=== PATIENT | female | born 1940 | race Caucasian/White ===

== ENCOUNTER → 2017-03-10 09:58 | Outpatient (CLI) | payer MEDICARE, OTHER, SELFPAY ==
--- NOTE | 2017-03-10 10:05 | ECHOCS_ITS ---
Reason For Study: Cardiomyopathy Procedure This was a 2D Doppler, Color Flow transthoracic echocardiogram. Exam performed in department. Left Ventricle Normal LV size. Mild concentric left ventricular hypertrophy. Moderately severe global left ventricular systolic dysfunction. The estimated ejection fraction is 35 %. There is moderate to severe global hypokinesis of the left ventricle. Right Ventricle Normal RV size. Normal systolic function. Atria The left atrium is mildly enlarged. Normal right atrium. Bubble contrast study negative for right to left interatrial shunt. Mitral Valve There is mild to moderate mitral annular calcification. Mild (1+) eccentric mitral valve insufficiency. Tricuspid Valve Normal tricuspid valve. Mild (1+) tricuspid valve insufficiency. Aortic Valve Trisinus/trileaflet aortic valve. Pulmonic Valve The pulmonic valve is not well visualized. Great Vessels Normal aortic root. The pulmonary artery is normal size. Normal inferior vena cava. Pericardium/Pleural No pericardial effusion. Medication 22 gauge I.V. with prn adaptor inserted into right arm. Diluted definity 2ml given slow IV push to enhance endocardial definition. MMode/2D Measurements & Calculations LVIDd: 4.6 cm IVSd: 1.2 cm Ao root diam: 3.3 cm LVIDs: 4.0 cm LVPWd: 1.5 cm LA dimension: 4.1 cm RVDd: 3.6 cm FS: 13.7 % LAV(MOD-bp): 84.4 ml LAV(MOD-bp) Indexed: 43.6 ml/m2 LA A4 area: 23.5 cm2 RA A4 area: 16.2 cm2 LAV(MOD-sp2): 89.6 ml LAV(MOD-sp4): 74.9 ml Time Measurements MV dec time: 0.25 sec Doppler Measurements & Calculations MV E max [place]: 68.5 cm/sec Lat Peak E' [place]: 9.0 cm/sec Med Peak E' [place]: 3.6 cm/sec MV A max [place]: 98.1 cm/sec E/E' lat: 7.6 E/E' med: 18.9 MV E/A: 0.70 MV V2 max: 122.1 cm/sec MV P1/2t max [place]: 81.6 cm/sec Ao V2 max: 120.4 cm/sec MV max P.0 mmHg MV P1/2t: 105.7 msec Ao max P.8 mmHg MV V2 mean: 64.8 cm/sec MV dec slope: 226.2 cm/sec2 Ao V2 mean: 77.5 cm/sec MV mean P.0 mmHg MVA(P1/2t): 2.1 cm2 Ao mean P.8 mmHg MV V2 VTI: 33.1 cm Ao V2 VTI: 22.1 cm LV V1 max: 89.9 cm/sec PA V2 max: 107.2 cm/sec TR max [place]: 282.9 cm/sec LV V1 max P.2 mmHg TR max P.0 mmHg LV V1 mean P.6 mmHg LV V1 mean: 58.8 cm/sec LV V1 VTI: 19.4 cm Interpretation Summary Normal LV size. Mild concentric left ventricular hypertrophy. Moderately severe global left ventricular systolic dysfunction. The estimated ejection fraction is 35 %. There is mild to moderate mitral annular calcification. Mild (1+) eccentric mitral valve insufficiency. Compared to the previous there is mild improvement noted Ordering Physician: Jonel Winchester Referring Physician: Jonel Winchester Performed By: Rolly Valdez RCS
== END ==
PROVIDERS: Family Provider Internal Medicine; PCP Internal Medicine; Visit Provider Internal Medicine Cardiovascular Disease
DX: I43 Cardiomyopathy in diseases classified elsewhere (principal)
CPT/HCPCS: 93306; Q9957; A4216; C8929

== ENCOUNTER 2017-04-19 17:14 | Inpatient (IN) | payer MEDICARE, OTHER, SELFPAY ==
[2017-04-19] VITALS (13 sets, daily range): BP systolic 99–129; BP diastolic 59–76; PULSE 93–140; RESP 14–25; TEMP 36.4–36.8; O2SAT 94–98; BMI 32.4; BMI 32.1
--- NOTE | 2017-04-19 17:28 | RAD_ITS ---
STUDY: X-RAY CHEST REASON FOR EXAM: Female, 76 years old. Tachycardia TECHNIQUE: Frontal view of the chest COMPARISON: X-ray dated 11/11/2016 FINDINGS: The lungs are clear. There are no pleural effusions. There is no pneumothorax. The heart is normal in size. Again noted is tortuosity of the aorta. The visualized osseous structures are within normal limits. The patient is status post sternotomy. RAD/Chest 1 View (Portable) IMPRESSION: No acute thoracic pathology. Electronically Signed: Kwasi Ambriz, at 17:53 EST Tel , Service support ,
--- NOTE | 2017-04-19 17:28 | EKG12_ITS ---
Test Reason : TACHYCARDIA Blood Pressure : / mmHG Vent. Rate : 119 BPM Atrial Rate : 256 BPM P-R Int : 000 ms QRS Dur : 126 ms QT Int : 366 ms P-R-T Axes : 000 -21 137 degrees QTc Int : 514 ms Atrial flutter with variable A-V block with premature ventricular or aberrantly conducted complexes Non-specific intra-ventricular conduction block T wave abnormality, consider lateral ischemia Abnormal ECG Confirmed by STAN ROSAS, EDWIN ([id number]), society editor AMIRA CASTRO ([id number]) on 04/21/2017 3:15:31 PM Referred By: Edwin Winchester Confirmed By:EDWIN WINCHESTER MD
[2017-04-19] MEDS: Aspirin 81 MG TAB.CHEW 324 MG PO (17:44)
[2017-04-19 17:55] LABS: Absolute Lymphocyte Count 3.48 X10^3/ul (0.83-4.51); Absolute Neutrophil Count 5.9 X10^3/uL (2.0-7.7); Basophil# 0.03 X10^3/uL; Basophil% 0.3 % (0-1); Eosinophil# 0.19 X10^3/uL; Eosinophils% 1.8 % (0-5); Hematocrit 38.6 % (37-47); Lymphocyte # 3.48 X10^3/ul (4.0); Lymphocyte % 33.4 % (19-41); Mean Corp Hgb Conc 31.1 g/gl (32-36); Mean Corpuscular Hgb 25.5 pg (27.0-32.0); Mean Corpuscular Volume 82.1 fL (81-99); Mean Platelet Vol. 10.2 fl (6.2-12.0); Monocyte% 7.7 % (0-10); Neutrophil # 5.91 X10^3/uL (2.7-7.7); Neutrophil % 56.6 % (47-70); POSITIVE COUNT NO; POSITIVE DIFFERENTIAL NO; POSITIVE MORPHOLOGY NO; Platelet Count 281 K/mm3 (150-450); RBC Distribution Width CV 14.9 % (11.6-14.6); RBC Distribution Width SD 44.6 fl (35.1-43.9); White Blood Count 10.4 K/mm3 (4.4-11.0)
[2017-04-19 17:57] LABS: Anion Gap 10 (5-15); BUN 29 mg/dL (7-18); Calcium,Total 8.7 mg/dL (8.5-10.1); Chloride 102 mmol/L (98-107); Creatinine, Serum 1.16 mg/dL (0.55-1.02); EST Glomerular Filtration Rate 48 mL/min (>60); Est Glom Filt Rate - Afr Amer 58 mL/min (>60); Estimated Creatinine Clearance 37.13 ml/min; Glucose 173 mg/dL (74-106); Potassium 4.7 mmol/L (3.5-5.1); Sodium Level 137 mmol/L (136-145)
--- NOTE | 2017-04-19 17:59 | ED.DCSUM_ITS ---
- ER Visit Summary Date of Service: 04/19/17 Chief Complaint: Palpitations History of Present Illness: The patient is a 76 F presenting with palpitations and intermittent chest tightness. She states she took her pulse at home and it was in the 130s. She called Dr. Winchester and was advised to take an extra dose of metoprolol. She normally takes metoprolol 100 mg twice daily. She states she was advised to come to the ED if this did not improve. Her heart rate remains in the 130s. She states she has a history of paroxysmal A. fib. Her last episode of A. fib was approximately 3 years ago. She is not on blood thinners secondary to previous brain surgery. Physical Examination: Vitals are stable. Patient is afebrile. Alert no acute distress. HEENT exam is unremarkable. Neck is supple. Lungs are clear and equal bilaterally. Heart is irregular and tachycardic Abdomen is soft nontender nondistended. Extremities symmetric edema Skin is warm and dry. No focal neurologic deficit. Remainder of exam is unremarkable. Emergency Department Course and Treatment: She was given aspirin on arrival. EKG shows A. fib with RVR. Chest x-ray shows no acute process. CBC is normal. Chemistries show glucose 173, BUN 29, creatinine 1.16. Troponin is indeterminate 0.14. She was given Cardizem IV. Repeat heart rate is 94. Discussed with Dr. Winchester and the hospitalist. Patient will be admitted to telemetry. Disposition: Observation Impression: A. fib with RVR This note was generated with [employer] dictation software. It may contain incorrect words, spelling, and punctuation that were not noted in review of the chart prior to signing ED Disposition - Plan for ED Patient: Chief Complaint: Palpitations Referrals: Nia Uriostegui DO [Primary Care Provider] -
[2017-04-19] MEDS: dilTIAZem 25 MG/5 ML Vial 10 MG IV BOLUS (18:22)
--- NOTE | 2017-04-19 20:15 | HP.PCM_ITS ---
Problem List (1) Atherosclerotic heart disease of [place] coronary artery without angina pectoris Status: Chronic Qualifiers: [place] vs. transplanted heart: [place] heart Qualified Code(s): I25.10 - Atherosclerotic heart disease of [place] coronary artery without angina pectoris Comment: 08/06/2004 CABG x2 VILLAGRAN side to side to second Diagonal and end to side to Anterior Descending artery in Sequential fashion. [facility]: 08/01/2004; 10/15/2011 (2) Atrial fibrillation Status: Chronic Qualifiers: Atrial fibrillation type: paroxysmal Qualified Code(s): I48.0 - Paroxysmal atrial fibrillation (3) Atrial fibrillation with RVR Status: Chronic (4) Cardiomyopathy in diseases classified elsewhere Status: Chronic (5) DM2 (diabetes mellitus, type 2) Status: Chronic Qualifiers: Diabetes mellitus correction insulin use: without correction use Diabetes mellitus complication status: without complication Qualified Code(s): E11.9 - Type 2 diabetes mellitus without complications (6) Diabetes mellitus type 2 in obese Status: Chronic History of Present Illness Date of Admission: 04/19/17 Chief Complaint: Afib with RVR The patient is a 76 year old female w/ h/o CAD, HTN, DMII, and afib admitted for afib with RVR. Pt has been having chest tightness off and on for the past months. Nothing made it worse or better. It would last for a few minutes and would resolved. However, yesterday prior to admission, she felt it more. The intensity and frequency increased. She had palpitation associated with intermittent chest tightness. She measured her pulse and it was n the 130s. She called her cardiology who recommended her to take an extra dose but her heart rate was still elevated. She was recommended to be evaluated in the ED. She is admitted for afib with RVR. Past Medical History Past Medical History (Chronic Problems): Chronic Problems (Last Updated 03/14/17 @ 10:05 by Sarkis Orozco) Other secondary pulmonary hypertension (Chronic) Cardiomyopathy in diseases classified elsewhere (Chronic) Other cerebral infarction (Chronic) Paroxysmal atrial fibrillation (Chronic) Presence of aortocoronary bypass graft (Chronic) 08-06-04 CABG x2 VILLAGRAN side to side to second Diagonal and end to side to Anterior Descending artery in Sequential fashion Atrial enlargement, left (Chronic) Atherosclerotic heart disease of [place] coronary artery without angina pectoris (Chronic) 08/06/2004 CABG x2 VILLAGRAN side to side to second Diagonal and end to side to Anterior Descending artery in Sequential fashion. [facility]: 08/01/2004; 10/15/2011 HTN (hypertension) (Chronic) HLD (hyperlipidemia) (Chronic) Asthma (Chronic) Heart failure with preserved ejection fraction (Chronic) Atrial fibrillation (Chronic) Gout (Chronic) Hypertension (Chronic) DM2 (diabetes mellitus, type 2) (Chronic) Obesity (Chronic) Meningioma (Chronic) Obesity (BMI 30.0-34.9) (Chronic) Diabetes mellitus type 2 in obese (Chronic) Non-ST elevation myocardial infarction (NSTEMI) due to mismatch of myocardial oxygen supply and demand (Chronic) Hypomagnesemia (Chronic) Hypokalemia (Chronic) Atrial fibrillation with RVR (Chronic) Allergies No Known Allergies Allergy (Verified 03/14/17 10:06) Home Medications: Ambulatory Orders Medication Instructions Recorded Aspirin E.C. [Ecotrin] 325 mg PO DAILY@0800 11/11/16 Cholecalciferol (Vitamin D3) 2,000 unit PO DAILY 11/11/16 [Vitamin D3] Fluticasone/Salmeterol [Advair 1 puff INHALATION BID 11/11/16 500-50 Diskus] Lansoprazole 30 mg PO DAILY 11/11/16 Linagliptin [Tradjenta] 5 mg PO DAILY 11/11/16 Methscopolamine [place] 5 mg PO BID 11/11/16 Montelukast Sodium [Singulair] 10 mg PO DAILY 11/11/16 Nitroglycerin [Nitrostat] 0.4 mg SL DAILY PRN 11/11/16 Valsartan [Diovan] 320 mg PO DAILY 11/11/16 Albuterol IH (ProAir) [Proair Hfa 2 puff INHALATION Q4H PRN PRN 11/15/16 (SP)Vent Pts] magnesium oxide 400 mg tablet 400 mg PO DAILY #30 tab 02/12/17 potassium chloride ER 20 mEq 20 meq PO QDAY #30 tab 02/12/17 tablet,extended release(part/cryst) furosemide 40 mg tablet 40 mg PO BID #60 tab 02/19/17 metoprolol tartrate 100 mg tablet 100 mg PO BID 02/28/17 diltiazem CD 120 mg 120 mg PO QDAY 03/14/17 capsule,extended release 24 hr gabapentin 100 mg capsule 100 mg PO BIDCM cap 03/14/17 metformin 500 mg tablet 1,000 mg PO BID tab 03/14/17 Insulin Detemir [Levemir (BKC)] 15 units SC QHS 04/19/17 Surgical History: - - Brain surgery Smoking Status: Never smoker - *Family History Maternal History Items: No pertinent history Paternal History Items: No pertinent history Review of Systems Constitutional: Denies: Chills, Fever, Weight Change HEENT: Denies: Head Aches, Sinus Congestion, Sinus Drainage Cardiovascular: Reports: Chest Pain, Chest Tightness. Denies: Palpitations Respiratory: Denies: Cough, Shortness of breath at rest, Sputum production Gastrointestinal: Denies: Abdominal Pain, Nausea, Vomiting Genitourinary: Denies: Dysuria Musculoskeletal: Denies: Joint Pain, Joint Tenderness Skin: Denies: Rash, Wounds Neurological: Denies: Numbness, Tingling, Focal weakness Psychiatric: Denies: Anxiety, Depression, Homicidal Ideations, Suicidal Ideations Hematologic/ Lymphatic: Denies: Easy Bruising, Easy Bleeding VTE Information - Inpt Only VTE Present on Admission: No VTE Mechan Device Prophylaxis: SCD's VTE Pharm Prophylaxis ordered?: Yes - Physical Exam General: Alert, Oriented x3, Cooperative HEENT: Atraumatic, PERRLA, EOMI, Normocephalic Neck: Supple, No JVD, Negative Carotid Bruits Lungs: Clear to auscultation, Normal air movement Cardiovascular: No murmurs, Irregular Rate Abdomen: Bowel Sounds Present, Soft, Non Tender Extremities: No edema, Capillary Refill Less than 3 Seconds Skin: No rashes, No breakdown Musculoskeletal: No Tenderness to Palpation of Joints or Extremities Neurological: Cranial nerves II-XII grossly intact Psych/Mental Status: Normal Affect, Appropriate Vital Signs Temp Pulse Resp BP Pulse Ox 97.6 F L 125 H 18 112/73 97 04/19/17 17:16 04/19/17 20:09 04/19/17 20:09 04/19/17 20:09 04/19/17 20:09 Oxygen Delivery Method Room Air Weight: 88.5 kg Body Mass Index (BMI) 32.4 Laboratory Tests Past 24 Hrs 04/19/17 04/19/17 17:33 17:33 WBC 10.4 RBC 4.70 Hgb 12.0 Hct 38.6 MCV 82.1 MCH 25.5 L MCHC 31.1 L RDW 14.9 H RDW Differential 44.6 H Plt Count 281 MPV 10.2 Immature Gran % (Auto) 0.200 Neut % (Auto) 56.6 Lymph % (Auto) 33.4 [place] % (Auto) 7.7 Eos % (Auto) 1.8 Baso % (Auto) 0.3 Absolute Neuts (auto) 5.9 Absolute Lymphs (auto) 3.48 Total Counted Not Reportable Sodium 137 Potassium 4.7 Chloride 102 Carbon Dioxide 25.0 Anion Gap 10 BUN 29 H Creatinine 1.16 H Estim Creat Clear Calc 37.13 Est GFR (MDRD) Af Amer 58 L Est GFR (MDRD) Non-Af 48 L BUN/Creatinine Ratio 25.0 H Glucose 173 H Calcium 8.7 Troponin I 0.14 H Assessment/Plan 76 year old female w/ h/o CAD, HTN, DMII, and afib admitted for afib with RVR. 1) Afib with RVR: Pt took an extra dose of metoprolol at home. Will resume home meds. No anticoagulation given h/o meningioma removal surgery several years ago. Will defer to neurosurgery if anticoagulation is acceptable given h/o remote surgery. Rate control. Monitor. 2) Chest pain: Heart score 5 Will get serial trops. ECHO in AM. Consulted cards. 3) H/o CAD, HTN and DMII: Resume home meds. 4) Prophylaxis: SCD / heparin
[2017-04-19] MEDS: 0.9% Normal Saline 1,000 ML 75 ML IV (21:28)
[2017-04-19] MEDS: Metoprolol Tartrate 100 MG Tablet PO (21:41)
[2017-04-19 21:46] LABS: Bedside Glucose 182 mg/dL (70-110)
[2017-04-19] MEDS: Budesonide Respules 0.5 MG/2 ML AMPUL.NEB. INHALATION (22:38)
[2017-04-19] MEDS: Albuterol 2.5 MG/3 ML VIAL.NEB. INHALATION (22:38)
[2017-04-19] MEDS: Aspirin E.C. 325 MG Tablet PO (23:27)
[2017-04-19] MEDS: Montelukast 10 MG Tablet PO (23:27)
[2017-04-19] MEDS: Gabapentin 100 MG Capsule PO (23:27)
[2017-04-20] VITALS (32 sets, daily range): BP systolic 99–123; BP diastolic 61–88; PULSE 67–134; RESP 14–26; TEMP 36.2–37; O2SAT 95–100
[2017-04-20] MEDS: Metoprolol Tartrate 100 MG Tablet PO ×2 (06:27→20:29)
[2017-04-20 06:46] LABS: Absolute Lymphocyte Count 2.28 X10^3/ul (0.83-4.51); Absolute Neutrophil Count 3.8 X10^3/uL (2.0-7.7); Basophil# 0.03 X10^3/uL; Basophil% 0.4 % (0-1); Eosinophil# 0.15 X10^3/uL; Eosinophils% 2.2 % (0-5); Hematocrit 34.5 % (37-47); Hemoglobin 10.9 g/dl (12.0-15.0); Lymphocyte # 2.28 X10^3/ul (4.0); Lymphocyte % 33.4 % (19-41); Mean Corp Hgb Conc 31.6 g/gl (32-36); Mean Corpuscular Hgb 25.9 pg (27.0-32.0); Mean Corpuscular Volume 81.9 fL (81-99); Mean Platelet Vol. 10.3 fl (6.2-12.0); Monocyte# 0.58 X10^3/uL; Monocyte% 8.5 % (0-10); Neutrophil # 3.77 X10^3/uL (2.7-7.7); Neutrophil % 55.2 % (47-70); Platelet Count 239 K/mm3 (150-450); RBC Distribution Width CV 14.9 % (11.6-14.6); RBC Distribution Width SD 43.3 fl (35.1-43.9); Red Blood Count 4.21 M/mm3 (4.2-5.4); White Blood Count 6.8 K/mm3 (4.4-11.0)
[2017-04-20 06:52] LABS: POSITIVE COUNT NO; POSITIVE DIFFERENTIAL NO; POSITIVE MORPHOLOGY NO
[2017-04-20 07:01] LABS: Bedside Glucose 126 mg/dL (70-110)
[2017-04-20 07:23] LABS: AST(SGOT) 10 U/L (15-37); Alanine Aminotransfer ALT/SGPT 9 U/L (13-56); Albumin, Serum 3.1 g/dL (3.2-5.0); Alkaline Phosphatase 87 U/L (45-117); Anion Gap 9 (5-15); BUN 27 mg/dL (7-18); Calcium,Total 8.2 mg/dL (8.5-10.1); Chloride 105 mmol/L (98-107); Cholesterol 174 mg/dL (200); EST Glomerular Filtration Rate 57 mL/min (>60); Est Glom Filt Rate - Afr Amer 69 mL/min (>60); Estimated Creatinine Clearance 41.33 ml/min; Globulin 3.1 g/dL (2.2-4.2); Glucose 152 mg/dL (74-106); High Density Lipoprotein 26 mg/dL; Potassium 4.3 mmol/L (3.5-5.1); Protein, Total 6.2 g/dL (6.4-8.2); Sodium Level 139 mmol/L (136-145); Thyroid Stim Hormone (TSH) 1.32 uIU/mL (0.358-3.74); Triglycerides 687 mg/dL
[2017-04-20] MEDS: Budesonide Respules 0.5 MG/2 ML AMPUL.NEB. INHALATION (07:55)
--- NOTE | 2017-04-20 08:41 | CPS ---
Patient with HR in 130's, albuterol held, patient denies SOB
[2017-04-20] MEDS: Furosemide 40 MG Tablet PO ×2 (09:27→16:49)
[2017-04-20] MEDS: dilTIAZem CD 120 MG Capsule PO (09:27)
[2017-04-20] MEDS: Gabapentin 100 MG Capsule PO ×2 (09:27→16:48)
[2017-04-20] MEDS: Pantoprazole Sodium 40 MG Tablet PO (09:28)
[2017-04-20] MEDS: LINAGLIPTIN 5 MG TABLET PO (09:28)
[2017-04-20] MEDS: Magnesium Oxide 400 MG Tablet PO (09:28)
--- NOTE | 2017-04-20 10:33 | PCM.CONS.C ---
Reason for Consult Date of Consultation: 04/20/17 Reason for Consultation: Fast heart rate. History of Present Illness: The patient is a 76 year old F with a history of known coronary artery disease paroxysmal atrial fibrillation hypertension hyperlipidemia who presented to the emergency room yesterday complaining of palpitations. She had called me early on in the day telling me that she felt her heart rate was out of rhythm. She was instructed to take an extra metoprolol which she did but after 2 hours there was no improvement in her rhythm and so she presented to the emergency room. She had complained of mild shortness of breath but no chest discomfort. You do remember that she does have a history of coronary artery bypass surgery and in November 2016 she presented with a similar finding with mildly abnormal troponins and underwent a cardiac catheterization. It demonstrated a normal size left main coronary artery with 30% distal stenosis, left anterior descending artery which was totally occluded, a first diagonal vessel with 75% stenosis, left circumflex artery with 30% stenosis. The first obtuse marginal branch had a 75% proximal stenosis in the right coronary artery had a 30% stenosis. She was brought back a few days later and underwent a left internal mammary artery catheterization which was patent to the left anterior descending artery. Medical therapy was recommended. At that time she was noted to have a globally reduced ejection fraction of approximately 35%. She was evaluated in the office and had been doing well until this recent episode.] At this particular time she just feels her mild palpitations. She is also mildly short of breath. Past Medical History Allergies/Adverse Reactions: Allergies No Known Allergies Allergy (Verified 03/14/17 10:06) Home Medications: Ambulatory Orders Medication Instructions Recorded Aspirin E.C. [Ecotrin] 325 mg PO DAILY@0800 11/11/16 Cholecalciferol (Vitamin D3) 2,000 unit PO DAILY 11/11/16 [Vitamin D3] Fluticasone/Salmeterol [Advair 1 puff INHALATION BID 11/11/16 500-50 Diskus] Lansoprazole 30 mg PO DAILY 11/11/16 Linagliptin [Tradjenta] 5 mg PO DAILY 11/11/16 Methscopolamine [employer] 5 mg PO BID 11/11/16 Montelukast Sodium [Singulair] 10 mg PO DAILY 11/11/16 Nitroglycerin [Nitrostat] 0.4 mg SL DAILY PRN 11/11/16 Valsartan [Diovan] 320 mg PO DAILY 11/11/16 Albuterol IH (ProAir) [Proair Hfa 2 puff INHALATION Q4H PRN PRN 11/15/16 (SP)Vent Pts] magnesium oxide 400 mg tablet 400 mg PO DAILY #30 tab 02/12/17 potassium chloride ER 20 mEq 20 meq PO QDAY #30 tab 02/12/17 tablet,extended release(part/cryst) furosemide 40 mg tablet 40 mg PO BID #60 tab 02/19/17 metoprolol tartrate 100 mg tablet 100 mg PO BID 02/28/17 diltiazem CD 120 mg 120 mg PO QDAY 03/14/17 capsule,extended release 24 hr gabapentin 100 mg capsule 100 mg PO BIDCM cap 03/14/17 metformin 500 mg tablet 1,000 mg PO BID tab 03/14/17 Insulin Detemir [Levemir (BKC)] 15 units SC QHS 04/19/17 Past Medical History (Chronic Problems): Chronic Problems (Last Updated 03/14/17 @ 10:05 by Sarkis Orozco) Other secondary pulmonary hypertension (Chronic) Cardiomyopathy in diseases classified elsewhere (Chronic) Other cerebral infarction (Chronic) Paroxysmal atrial fibrillation (Chronic) Presence of aortocoronary bypass graft (Chronic) 08-06-04 CABG x2 VILLAGRAN side to side to second Diagonal and end to side to Anterior Descending artery in Sequential fashion Atrial enlargement, left (Chronic) Atherosclerotic heart disease of [place] coronary artery without angina pectoris (Chronic) 08/06/2004 CABG x2 VILLAGRAN side to side to second Diagonal and end to side to Anterior Descending artery in Sequential fashion. [facility]: 08/01/2004; 10/15/2011 HTN (hypertension) (Chronic) HLD (hyperlipidemia) (Chronic) Asthma (Chronic) Heart failure with preserved ejection fraction (Chronic) Atrial fibrillation (Chronic) Gout (Chronic) Hypertension (Chronic) DM2 (diabetes mellitus, type 2) (Chronic) Obesity (Chronic) Meningioma (Chronic) Obesity (BMI 30.0-34.9) (Chronic) Diabetes mellitus type 2 in obese (Chronic) Non-ST elevation myocardial infarction (NSTEMI) due to mismatch of myocardial oxygen supply and demand (Chronic) Hypomagnesemia (Chronic) Hypokalemia (Chronic) Atrial fibrillation with RVR (Chronic) Surgical History: - - Brain surgery - *Family History Maternal Family History: Family History (Last Updated 03/14/17 @ 10:06 by Sarkis Orozco) Father CAD (coronary artery disease) Mother CAD (coronary artery disease) Brother CAD (coronary artery disease) Sister CAD (coronary artery disease) Myocardial infarction History Items: No pertinent history Paternal Family History: Family History (Last Updated 03/14/17 @ 10:06 by Sarkis Orozco) Father CAD (coronary artery disease) Mother CAD (coronary artery disease) Brother CAD (coronary artery disease) Sister CAD (coronary artery disease) Myocardial infarction History Items: No pertinent history Lives: Spouse/ Significant Other Smoking Status: Never smoker Alcohol: None Drugs: None Review of Systems - Review of Systems General: Denies: Fever, Night Sweats, Fatigue Cardiovascular: Reports: Shortness of Breath, Shortness of Breath at Rest, Shortness of Breath with Exertion, Palpitations. Denies: Chest Discomfort, Orthopnea, PND, Peripheral Edema, Lightheadedness, Dizziness, Near Syncope, Syncope Respiratory: Denies: Cough, Sputum Production, Hemoptysis Gastrointestinal: Denies: Hematemesis, Hematochezia, Melena Genitourinary: Denies: Dysuria, Hematuria Skin: Denies: Rash Subjectve: Pleasant lady in mild respiratory distress only. Objective: Vital Signs Temp Pulse Resp BP Pulse Ox 97.8 F 130 H 14 111/67 96 04/20/17 09:24 04/20/17 09:24 04/20/17 09:24 04/20/17 09:24 04/20/17 09:24 Oxygen Delivery Method Room Air Weight: 192 lb 14.472 oz Body Mass Index (BMI) 32.1 Intake and Output for Last 24 Hours 04/18/17 04/19/17 04/21/17 23:59 23:59 00:59 Intake Total 238 / 238 464 / 464 Balance 238 / 238 464 / 464 General: Awake, Alert, Oriented x 3 HEENT: PERRL, EOMI, Sclera Non Icteric Neck: Supple, Good ROM, No Lymph Node Enlargement Lungs: Diminished Messi Bases Cardiovascular: Irregular Rhythm, Normal S1, Normal S2, No Murmurs, No Rubs, No Gallops Vascular: No Carotid Bruits, Normal Femoral Pulses, Normal Radial Pulses, Normal Dorsalis Pedal Pulse, Normal Posterior Tibial Pulses Abdomen: Bowel Sounds Present, Soft, Non Tender, No HSM, No Organomegaly Extremities: No Cyanosis, No Clubbing, No edema Neurological: No Focal Motor or Sensory Deficit 04/19/17 21:30: Troponin I 0.15 H 04/20/17 01:28: Troponin I 0.16 H 04/20/17 06:35: WBC 6.8, RBC 4.21, Hgb 10.9 L, Hct 34.5 L, MCV 81.9, MCH 25.9 L, MCHC 31.6 L, RDW 14.9 H, RDW Differential 43.3, Plt Count 239, MPV 10.3, Immature Gran % (Auto) 0.300, Neut % (Auto) 55.2, Lymph % (Auto) 33.4, [place] % (Auto) 8.5, Eos % (Auto) 2.2, Baso % (Auto) 0.4, Absolute Neuts (auto) 3.8, Total Counted Not Reportable 04/20/17 06:35: Sodium 139, Potassium 4.3, Chloride 105, Carbon Dioxide 25.0, Anion Gap 9, BUN 27 H, Creatinine 1.00, Est GFR (MDRD) Af Amer 69, Est GFR (MDRD) Non-Af 57 L, BUN/Creatinine Ratio 27.0 H, Glucose 152 H, Calcium 8.2 L, Total Bilirubin 0.30, Triglycerides 687 H, Cholesterol 174, LDL Cholesterol TNP, VLDL Cholesterol TNP, HDL Cholesterol 26 L 04/20/17 06:35: Troponin I 0.16 H Rhythm: EKG: Atrial flutter with a rapid ventricular response rate of 119 bpm. ECHO: Global ejection fraction estimated to be 35% in November 2016 Assessment/Plan 1. Paroxysmal atrial fibrillation Patient presents with another paroxysm of atrial fibrillation. As you know she does have a history of a meningioma and anticoagulation has been discouraged. She has been on the beta-carolyn with metoprolol 100 mg twice a day as well as Cardizem. My recommendation at this time is to consider adding amiodarone to her regimen. I will start by loading her up with intravenous amiodarone as this appears to be an event less than 24 hours old. If she successfully converted to sinus rhythm then I may suggest the addition of oral amiodarone to help stable future episodes of the atrial fibrillation. 2, coronary artery disease. She does have a history of coronary artery disease. She has patent stents which were recently documented as well as [place] vessel disease which is not amenable to angioplasty. She does have mildly chronically elevated troponins but did not meet the criteria for plaque rupture. I suspect the above is secondary to her paroxysmal atrial fibrillation. At this time I do not think there is a reason to reevaluate her coronary anatomy. 3. Hypertension Her blood pressure appears to be under good control on the current medical therapy with the beta-carolyn, Cardizem and valsartan. This will be continued except for the Cardizem which will be held temporarily. Her potassium can also be discontinued. 4. Cardiomyopathy She did have her left ventricular function evaluated and was noted to have an ejection fraction of approximately 35% in February 2017. I do not think there is a reason to repeat this. We will attempt to keep her in sinus rhythm and after 3 months an echo repeated as I think that this may be tachycardia mediated. 5. Hyperlipidemia She will continue with aggressive risk factor modification and lipid-lowering. Thank you for allowing me to participate in the care of your patient. Please don't hesitate to call if any issues arise
--- NOTE | 2017-04-20 10:42 | CON.PCM_ITS ---
Reason for Consult Date of Consultation: 04/20/17 Reason for Consultation: Fast heart rate. History of Present Illness: The patient is a 76 year old F with a history of known coronary artery disease paroxysmal atrial fibrillation hypertension hyperlipidemia who presented to the emergency room yesterday complaining of palpitations. She had called me early on in the day telling me that she felt her heart rate was out of rhythm. She was instructed to take an extra metoprolol which she did but after 2 hours there was no improvement in her rhythm and so she presented to the emergency room. She had complained of mild shortness of breath but no chest discomfort. You do remember that she does have a history of coronary artery bypass surgery and in November 2016 she presented with a similar finding with mildly abnormal troponins and underwent a cardiac catheterization. It demonstrated a normal size left main coronary artery with 30% distal stenosis, left anterior descending artery which was totally occluded, a first diagonal vessel with 75% stenosis, left circumflex artery with 30% stenosis. The first obtuse marginal branch had a 75% proximal stenosis in the right coronary artery had a 30% stenosis. She was brought back a few days later and underwent a left internal mammary artery catheterization which was patent to the left anterior descending artery. Medical therapy was recommended. At that time she was noted to have a globally reduced ejection fraction of approximately 35%. She was evaluated in the office and had been doing well until this recent episode.] At this particular time she just feels her mild palpitations. She is also mildly short of breath. Past Medical History Allergies/Adverse Reactions: Allergies No Known Allergies Allergy (Verified 03/14/17 10:06) Home Medications: Ambulatory Orders Medication Instructions Recorded Aspirin E.C. [Ecotrin] 325 mg PO DAILY@0800 11/11/16 Cholecalciferol (Vitamin D3) 2,000 unit PO DAILY 11/11/16 [Vitamin D3] Fluticasone/Salmeterol [Advair 1 puff INHALATION BID 11/11/16 500-50 Diskus] Lansoprazole 30 mg PO DAILY 11/11/16 Linagliptin [Tradjenta] 5 mg PO DAILY 11/11/16 Methscopolamine Union 5 mg PO BID 11/11/16 Montelukast Sodium [Singulair] 10 mg PO DAILY 11/11/16 Nitroglycerin [Nitrostat] 0.4 mg SL DAILY PRN 11/11/16 Valsartan [Diovan] 320 mg PO DAILY 11/11/16 Albuterol IH (ProAir) [Proair Hfa 2 puff INHALATION Q4H PRN PRN 11/15/16 (SP)Vent Pts] magnesium oxide 400 mg tablet 400 mg PO DAILY #30 tab 02/12/17 potassium chloride ER 20 mEq 20 meq PO QDAY #30 tab 02/12/17 tablet,extended release(part/cryst) furosemide 40 mg tablet 40 mg PO BID #60 tab 02/19/17 metoprolol tartrate 100 mg tablet 100 mg PO BID 02/28/17 diltiazem CD 120 mg 120 mg PO QDAY 03/14/17 capsule,extended release 24 hr gabapentin 100 mg capsule 100 mg PO BIDCM cap 03/14/17 metformin 500 mg tablet 1,000 mg PO BID tab 03/14/17 Insulin Detemir [Levemir (BKC)] 15 units SC QHS 04/19/17 Past Medical History (Chronic Problems): Chronic Problems (Last Updated 03/14/17 @ 10:05 by Sarkis Orozco) Other secondary pulmonary hypertension (Chronic) Cardiomyopathy in diseases classified elsewhere (Chronic) Other cerebral infarction (Chronic) Paroxysmal atrial fibrillation (Chronic) Presence of aortocoronary bypass graft (Chronic) 08-06-04 CABG x2 VILLAGRAN side to side to second Diagonal and end to side to Anterior Descending artery in Sequential fashion Atrial enlargement, left (Chronic) Atherosclerotic heart disease of yuhaaviatam coronary artery without angina pectoris (Chronic) 08/06/2004 CABG x2 VILLAGRAN side to side to second Diagonal and end to side to Anterior Descending artery in Sequential fashion. [facility]: 08/01/2004; 10/15/2011 HTN (hypertension) (Chronic) HLD (hyperlipidemia) (Chronic) Asthma (Chronic) Heart failure with preserved ejection fraction (Chronic) Atrial fibrillation (Chronic) Gout (Chronic) Hypertension (Chronic) DM2 (diabetes mellitus, type 2) (Chronic) Obesity (Chronic) Meningioma (Chronic) Obesity (BMI 30.0-34.9) (Chronic) Diabetes mellitus type 2 in obese (Chronic) Non-ST elevation myocardial infarction (NSTEMI) due to mismatch of myocardial oxygen supply and demand (Chronic) Hypomagnesemia (Chronic) Hypokalemia (Chronic) Atrial fibrillation with RVR (Chronic) Surgical History: - - Brain surgery - *Family History Maternal Family History: Family History (Last Updated 03/14/17 @ 10:06 by Sarkis Orozco) Father CAD (coronary artery disease) Mother CAD (coronary artery disease) Brother CAD (coronary artery disease) Sister CAD (coronary artery disease) Myocardial infarction History Items: No pertinent history Paternal Family History: Family History (Last Updated 03/14/17 @ 10:06 by Sarkis Orozco) Father CAD (coronary artery disease) Mother CAD (coronary artery disease) Brother CAD (coronary artery disease) Sister CAD (coronary artery disease) Myocardial infarction History Items: No pertinent history Lives: Spouse/ Significant Other Smoking Status: Never smoker Alcohol: None Drugs: None Review of Systems - Review of Systems General: Denies: Fever, Night Sweats, Fatigue Cardiovascular: Reports: Shortness of Breath, Shortness of Breath at Rest, Shortness of Breath with Exertion, Palpitations. Denies: Chest Discomfort, Orthopnea, PND, Peripheral Edema, Lightheadedness, Dizziness, Near Syncope, Syncope Respiratory: Denies: Cough, Sputum Production, Hemoptysis Gastrointestinal: Denies: Hematemesis, Hematochezia, Melena Genitourinary: Denies: Dysuria, Hematuria Skin: Denies: Rash Subjectve: Pleasant lady in mild respiratory distress only. Objective: Vital Signs Temp Pulse Resp BP Pulse Ox 97.8 F 130 H 14 111/67 96 04/20/17 09:24 04/20/17 09:24 04/20/17 09:24 04/20/17 09:24 04/20/17 09:24 Oxygen Delivery Method Room Air Weight: 192 lb 14.472 oz Body Mass Index (BMI) 32.1 Intake and Output for Last 24 Hours 04/18/17 04/19/17 04/21/17 23:59 23:59 00:59 Intake Total 238 / 238 464 / 464 Balance 238 / 238 464 / 464 General: Awake, Alert, Oriented x 3 HEENT: PERRL, EOMI, Sclera Non Icteric Neck: Supple, Good ROM, No Lymph Node Enlargement Lungs: Diminished Messi Bases Cardiovascular: Irregular Rhythm, Normal S1, Normal S2, No Murmurs, No Rubs, No Gallops Vascular: No Carotid Bruits, Normal Femoral Pulses, Normal Radial Pulses, Normal Dorsalis Pedal Pulse, Normal Posterior Tibial Pulses Abdomen: Bowel Sounds Present, Soft, Non Tender, No HSM, No Organomegaly Extremities: No Cyanosis, No Clubbing, No edema Neurological: No Focal Motor or Sensory Deficit 04/19/17 21:30: Troponin I 0.15 H 04/20/17 01:28: Troponin I 0.16 H 04/20/17 06:35: WBC 6.8, RBC 4.21, Hgb 10.9 L, Hct 34.5 L, MCV 81.9, MCH 25.9 L , MCHC 31.6 L, RDW 14.9 H, RDW Differential 43.3, Plt Count 239, MPV 10.3, Immature Gran % (Auto) 0.300, Neut % (Auto) 55.2, Lymph % (Auto) 33.4, Norton % ( Auto) 8.5, Eos % (Auto) 2.2, Baso % (Auto) 0.4, Absolute Neuts (auto) 3.8, Total Counted Not Reportable 04/20/17 06:35: Sodium 139, Potassium 4.3, Chloride 105, Carbon Dioxide 25.0, Anion Gap 9, BUN 27 H, Creatinine 1.00, Est GFR (MDRD) Af Amer 69, Est GFR (MDRD ) Non-Af 57 L, BUN/Creatinine Ratio 27.0 H, Glucose 152 H, Calcium 8.2 L, Total Bilirubin 0.30, Triglycerides 687 H, Cholesterol 174, LDL Cholesterol TNP, VLDL Cholesterol TNP, HDL Cholesterol 26 L 04/20/17 06:35: Troponin I 0.16 H Rhythm: EKG: Atrial flutter with a rapid ventricular response rate of 119 bpm. ECHO: Global ejection fraction estimated to be 35% in November 2016 Assessment/Plan 1. Paroxysmal atrial fibrillation Patient presents with another paroxysm of atrial fibrillation. As you know she does have a history of a meningioma and anticoagulation has been discouraged. She has been on the beta-carolyn with metoprolol 100 mg twice a day as well as Cardizem. My recommendation at this time is to consider adding amiodarone to her regimen. I will start by loading her up with intravenous amiodarone as this appears to be an event less than 24 hours old. If she successfully converted to sinus rhythm then I may suggest the addition of oral amiodarone to help stable future episodes of the atrial fibrillation. 2, coronary artery disease. She does have a history of coronary artery disease. She has patent stents which were recently documented as well as [place] vessel disease which is not amenable to angioplasty. She does have mildly chronically elevated troponins but did not meet the criteria for plaque rupture. I suspect the above is secondary to her paroxysmal atrial fibrillation. At this time I do not think there is a reason to reevaluate her coronary anatomy. 3. Hypertension Her blood pressure appears to be under good control on the current medical therapy with the beta-carolyn, Cardizem and valsartan. This will be continued except for the Cardizem which will be held temporarily. Her potassium can also be discontinued. 4. Cardiomyopathy She did have her left ventricular function evaluated and was noted to have an ejection fraction of approximately 35% in February 2017. I do not think there is a reason to repeat this. We will attempt to keep her in sinus rhythm and after 3 months an echo repeated as I think that this may be tachycardia mediated. 5. Hyperlipidemia She will continue with aggressive risk factor modification and lipid-lowering. Thank you for allowing me to participate in the care of your patient. Please don't hesitate to call if any issues arise
[2017-04-20 12:05] LABS: Bedside Glucose 198 mg/dL (70-110)
--- NOTE | 2017-04-20 13:34 | EKG12_ITS ---
Test Reason : Blood Pressure : / mmHG Vent. Rate : 130 BPM Atrial Rate : 130 BPM P-R Int : 112 ms QRS Dur : 122 ms QT Int : 350 ms P-R-T Axes : 000 -24 198 degrees QTc Int : 515 ms Atrial flutter Marked ST abnormality, possible inferolateral subendocardial injury Abnormal ECG When compared with ECG of 19-APR-2017 17:25, MANUAL COMPARISON REQUIRED, DATA IS UNCONFIRMED Confirmed by STAN ROSAS, EDWIN ([id number]), communications editor AMIRA CASTRO ([id number]) on 04/23/2017 4:21:32 PM Referred By: Edwin Winchester Confirmed By:EDWIN WINCHESTER MD
[2017-04-20] MEDS: dilTIAZem 25 MG/5 ML Vial 20 MG IV BOLUS (14:09)
--- NOTE | 2017-04-20 14:26 | PCM.PROGNOTE ---
<Doyle Nye - Last Filed: 04/20/17 14:26> Subjective: Pt resting comfortably in bed NAD. No chest pain pressure or tightness, no palpitations, no dizziness, or lightheadedness today. She is still tachy and will start an amio drip today. - Physical Exam General: Alert, Oriented x3, Cooperative HEENT: Atraumatic, PERRLA, EOMI, Normocephalic Neck: Supple, No JVD, Negative Carotid Bruits Lungs: Clear to auscultation, Normal air movement Cardiovascular: No murmurs, Irregular Rate Abdomen: Bowel Sounds Present, Soft, Non Tender Extremities: No edema, Capillary Refill Less than 3 Seconds Skin: No rashes, No breakdown Musculoskeletal: No Tenderness to Palpation of Joints or Extremities Neurological: Cranial nerves II-XII grossly intact Psych/Mental Status: Normal Affect, Appropriate, Alert and oriented to time, place, person, mood and affect Vital Signs Temp Pulse Resp BP Pulse Ox 97.8 F 67 19 H 105/63 98 04/20/17 09:24 04/20/17 14:20 04/20/17 14:00 04/20/17 14:20 04/20/17 14:00 Assessment/Plan 1. Paroxysmal AF with RVR - amio drip started per cardiology. She is also on cardizem and lopressor. TSH normal. No anticoagulation other than daily full strength aspirin (per her neurologist) as she has a hx of meningioma. Recent Echo 03/10/17 -EF 35%, mild concentric LVH, moderately severe global left ventricular systolic dysfunction, 1+ MVI, mild improvement versus prior. 2. Elevated troponin - Stable, chronic, per cardiology, no further workup. 3. CAD - asa, BB. Lipid panel skewed 2/2 triglycerides. Will add low statin. Prior CABG Nov 2016. Recent cath with no intervention indicated. 4. HTN - stable 5. HLD - added statin 6. DMt2 - titrate insulin therapy. SSI. Continue tradjenta. DVT ppx: heparin DC planning: must remain stable off Amio drip prior to DC. This patient was seen by Doyle Nye PA-C under the supervision of Doctor Ryan. <Farrukh Davis - Last Filed: 04/28/17 13:14> - Physical Exam General: Alert, Cooperative HEENT: Atraumatic, Normocephalic Vital Signs Temp Pulse Resp BP Pulse Ox 36.4 C L 57 L 18 120/58 L 95 04/23/17 14:00 04/23/17 15:37 04/23/17 14:00 04/23/17 14:00 04/23/17 14:00 Oxygen Flow Rate (L/min) 2 Oxygen Delivery Method Room Air Weight: 87.5 kg Body Mass Index (BMI) 32.1 Assessment/Plan Patient seen and examined independently. I agree with the above note by the PA. 1. pAfib: amio gtt. appreciate cardiology mgmt 2. elevated troponin: likely d/t afib w RVR. Code Visit Inpatient E&M: 99878 Subs Hosp L2
--- NOTE | 2017-04-20 15:27 | EKG12_ITS ---
Test Reason : RHYTHM CHANGE Blood Pressure : / mmHG Vent. Rate : 067 BPM Atrial Rate : 277 BPM P-R Int : 000 ms QRS Dur : 128 ms QT Int : 422 ms P-R-T Axes : 074 -26 166 degrees QTc Int : 445 ms Atrial flutter Non-specific intra-ventricular conduction block T wave abnormality, consider lateral ischemia Abnormal ECG When compared with ECG of 20-APR-2017 13:46, MANUAL COMPARISON REQUIRED, DATA IS UNCONFIRMED Confirmed by STAN ROSAS, EDWIN ([id number]), senior technical editor AMIRA CASTRO ([id number]) on 04/23/2017 4:21:43 PM Referred By: Edwin Winchester Confirmed By:EDWIN WINCHESTER MD
[2017-04-20 17:06] LABS: Bedside Glucose 164 mg/dL (70-110)
[2017-04-20] MEDS: Montelukast 10 MG Tablet PO (21:45)
[2017-04-20] MEDS: Aspirin E.C. 325 MG Tablet PO (21:45)
[2017-04-20] MEDS: Atorvastatin Calcium 40 MG Tablet PO (21:52)
[2017-04-20 22:06] LABS: Bedside Glucose 175 mg/dL (70-110)
[2017-04-21] VITALS (42 sets, daily range): BP systolic 95–131; BP diastolic 52–85; PULSE 62–129; RESP 14–24; TEMP 36.1–37; O2SAT 96–100
[2017-04-21] MEDS: 0.9% NaCl Peripheral Flush Adult/Peds IV ×2 (05:33→08:02)
[2017-04-21 05:37] LABS: Absolute Neutrophil Count 5.5 X10^3/uL (2.0-7.7); Basophil# 0.02 X10^3/uL; Basophil% 0.2 % (0-1); Eosinophil# 0.12 X10^3/uL; Eosinophils% 1.4 % (0-5); Hematocrit 35.4 % (37-47); Hemoglobin 11.2 g/dl (12.0-15.0); Lymphocyte % 22.9 % (19-41); Mean Corp Hgb Conc 31.6 g/gl (32-36); Mean Corpuscular Volume 82.3 fL (81-99); Mean Platelet Vol. 10.4 fl (6.2-12.0); Monocyte# 0.74 X10^3/uL; Monocyte% 8.9 % (0-10); Neutrophil # 5.49 X10^3/uL (2.7-7.7); Neutrophil % 66.4 % (47-70); Platelet Count 207 K/mm3 (150-450); RBC Distribution Width CV 14.9 % (11.6-14.6); RBC Distribution Width SD 43.8 fl (35.1-43.9); White Blood Count 8.3 K/mm3 (4.4-11.0)
[2017-04-21 05:42] LABS: POSITIVE COUNT NO; POSITIVE DIFFERENTIAL NO; POSITIVE MORPHOLOGY NO
[2017-04-21 05:58] LABS: Anion Gap 9 (5-15); BUN 23 mg/dL (7-18); Calcium,Total 8.6 mg/dL (8.5-10.1); Chloride 101 mmol/L (98-107); EST Glomerular Filtration Rate 57 mL/min (>60); Est Glom Filt Rate - Afr Amer 69 mL/min (>60); Estimated Creatinine Clearance 41.33 ml/min; Glucose 161 mg/dL (74-106); Potassium 4.4 mmol/L (3.5-5.1); Sodium Level 137 mmol/L (136-145)
[2017-04-21 07:01] LABS: Bedside Glucose 153 mg/dL (70-110)
[2017-04-21] MEDS: Gabapentin 100 MG Capsule PO ×2 (07:59→17:28)
[2017-04-21] MEDS: Digoxin 250 MCG/ML Ampul 500 MCG IV (07:59)
[2017-04-21] MEDS: dilTIAZem CD 120 MG Capsule PO (09:25)
[2017-04-21] MEDS: Magnesium Oxide 400 MG Tablet PO (09:26)
[2017-04-21] MEDS: Furosemide 40 MG Tablet PO ×2 (09:26→17:28)
[2017-04-21] MEDS: Pantoprazole Sodium 40 MG Tablet PO (09:26)
[2017-04-21] MEDS: Metoprolol Tartrate 100 MG Tablet PO ×2 (09:27→21:43)
[2017-04-21] MEDS: LINAGLIPTIN 5 MG TABLET PO (09:27)
--- NOTE | 2017-04-21 11:16 | CASEMGMT ---
Face to Face with patient for initial transition planning/care coordination assessment. GEOFF MATTSON introduced self and role at [facility], pt voices understanding and consents to assessment at this time. Pt sitting up in bed in no distress at this time. Pt A/O x4 at this time and answers all questions appropriately at this time. Care providers, pharmacy, and demographics verified. See attached link. Pt states is unable to be placed on anticoagulants due to hx of brain surgery. Pt states should f/u with Dr. Thu Rios, her neurologist, this summer but he moved from [place] to [place] and she is not sure where he is now but would like to stay with him. This RN TWILA found physician's new contact info, printed off for pt and provided it to her at this time. Pt's expresses gratitude to this RN TWILA at this time. Pt voices no further concerns/needs at this time. Advised pt to ask for CM if any further questions/concerns/needs arise, voices understanding. CM to follow for any further discharge planning/needs. PLAN: [place] GEOFF MATTSON
[2017-04-21 11:26] LABS: Bedside Glucose 199 mg/dL (70-110)
[2017-04-21] MEDS: dilTIAZem 25 MG/5 ML Vial 20 MG IV BOLUS (11:50)
--- NOTE | 2017-04-21 13:47 | PN_ITS ---
Addendum entered and electronically signed by JEREMI Lawson 04/21/17 13:50: Code Visit Problem #9 OMA - pt noncompliant with CPAP Original Note: Subjective: Pt did have her rate slow down briefly yesterday, although at the time she remained in A flutter. Today she is tachy again. She does complain of mild SOB at rest. She has no CP and no sensation of palpitations. She did not wear her CPAP last night and admits to not using it all the time. She has no swelling of her lower extremities. No dizziness or LH. - Physical Exam General: Alert, Oriented x3, Cooperative HEENT: Atraumatic, PERRLA, EOMI, Normocephalic Neck: Supple, No JVD, Negative Carotid Bruits Lungs: Clear to auscultation, Normal air movement Cardiovascular: No murmurs, Irregular Rate, Tachycardic Abdomen: Bowel Sounds Present, Soft, Non Tender Extremities: No edema, Capillary Refill Less than 3 Seconds Skin: No rashes, No breakdown Musculoskeletal: No Tenderness to Palpation of Joints or Extremities Neurological: Cranial nerves II-XII grossly intact Psych/Mental Status: Normal Affect, Appropriate, Alert and oriented to time, place, person, mood and affect Vital Signs Temp Pulse Resp BP Pulse Ox 98.2 F 68 22 H 114/61 98 04/21/17 11:03 04/21/17 13:30 04/21/17 13:30 04/21/17 13:30 04/21/17 13:30 Oxygen Flow Rate (L/min) 2 Oxygen Delivery Method Nasal Cannula Intake and Output for Last 24 Hours 04/19/17 04/20/17 04/21/17 22:59 23:59 23:59 Intake Total 528 / 528 Balance 528 / 528 Laboratory Tests Past 24 Hrs 04/21/17 04/21/17 05:24 05:24 WBC 8.3 RBC 4.30 Hgb 11.2 L Hct 35.4 L MCV 82.3 MCH 26.0 L MCHC 31.6 L RDW 14.9 H RDW Differential 43.8 Plt Count 207 MPV 10.4 Immature Gran % (Auto) 0.200 Neut % (Auto) 66.4 Lymph % (Auto) 22.9 Cross % (Auto) 8.9 Eos % (Auto) 1.4 Baso % (Auto) 0.2 Absolute Neuts (auto) 5.5 Absolute Lymphs (auto) 1.90 Total Counted Not Reportable Sodium 137 Potassium 4.4 Chloride 101 Carbon Dioxide 27.0 Anion Gap 9 BUN 23 H Creatinine 1.00 Estim Creat Clear Calc 41.33 Est GFR (MDRD) Af Amer 69 Est GFR (MDRD) Non-Af 57 L BUN/Creatinine Ratio 23.0 H Glucose 161 H Calcium 8.6 POC Glucose 04/21/17 04/21/17 04/20/17 11:22 06:54 21:41 POC Glucose 199 H 153 H 175 H 04/20/17 16:47 POC Glucose 164 H Assessment/Plan 1. Paroxysmal AF/Flutter with RVR - amio drip changed to diltiazem drip per caridiology. She is also on lopressor. TSH normal. No anticoagulation other than daily full strength aspirin (per her neurologist) as she has a hx of meningioma. Recent Echo 03/10/17 -EF 35%, mild concentric LVH, moderately severe global left ventricular systolic dysfunction, 1+ MVI, mild improvement versus prior. 2. Elevated troponin - Stable, chronic, per cardiology, no further workup. 3. CAD - asa, BB. Lipid panel skewed 2/2 triglycerides. Statin started. Prior CABG Nov 2016. Recent cath with no intervention indicated. 4. HTN - stable 5. HLD - added statin 6. DMt2 - titrate insulin therapy. SSI. Continue tradjenta. 7. Mild normocytic anemia - stable. DVT ppx: heparin DC planning: must remain stable off drip prior to DC. This patient was seen by Doyle Nye PA-C under the supervision of Doctor Cisse.
[2017-04-21 16:15] LABS: Bedside Glucose 153 mg/dL (70-110)
[2017-04-21 19:27] LABS: Magnesium 1.8 mg/dL (1.6-2.6)
[2017-04-21] MEDS: Atorvastatin Calcium 40 MG Tablet PO (21:43)
[2017-04-21] MEDS: Montelukast 10 MG Tablet PO (21:43)
[2017-04-21] MEDS: Aspirin E.C. 325 MG Tablet PO (21:45)
[2017-04-21 22:01] LABS: Bedside Glucose 160 mg/dL (70-110)
[2017-04-22] VITALS (24 sets, daily range): BP systolic 87–119; BP diastolic 44–71; PULSE 59–125; RESP 14–24; TEMP 36.4–36.7; O2SAT 95–100
[2017-04-22 06:51] LABS: Bedside Glucose 155 mg/dL (70-110)
--- NOTE | 2017-04-22 08:06 | PN.CARD_ITS ---
Subjectve: The patient was seen and evaluated and appears to be doing better. Currently off the Cardizem drip. Rate appears to be stable Objective: Vital Signs Temp Pulse Resp BP Pulse Ox 97.6 F L 67 18 93/63 96 04/22/17 05:48 04/22/17 05:48 04/22/17 05:48 04/22/17 05:48 04/22/17 05:48 Oxygen Flow Rate (L/min) 2 Oxygen Delivery Method Nasal Cannula Intake and Output for Last 24 Hours 04/20/17 04/21/17 04/22/17 23:59 23:59 23:59 Intake Total 1308 / 1308 240 / 240 Balance 1308 / 1308 240 / 240 General: Awake, Alert, Oriented x 3 HEENT: PERRL, EOMI, Sclera Non Icteric Neck: Supple, Good ROM, No Lymph Node Enlargement Lungs: Clear to auscultation Cardiovascular: Irregular Rhythm, Normal S1, Normal S2, No Murmurs, No Rubs, No Gallops Vascular: No Carotid Bruits, Normal Femoral Pulses, Normal Radial Pulses, Normal Dorsalis Pedal Pulse, Normal Posterior Tibial Pulses Abdomen: Bowel Sounds Present, Soft, Non Tender, No HSM, No Organomegaly Extremities: No Cyanosis, No Clubbing, No edema Neurological: No Focal Motor or Sensory Deficit 04/21/17 05:24: Magnesium 1.8 Rhythm: Atrial fibrillation with a controlled rate. Assessment/Plan 1. Paroxysmal atrial fibrillation Patient presents with another paroxysm of atrial fibrillation. As you know she does have a history of a meningioma and anticoagulation has been discouraged. She has been on the beta-carolyn with metoprolol 100 mg twice a day as well as Cardizem. My recommendation at this time is to consider adding amiodarone to her regimen. I will start by loading her up with intravenous amiodarone as this appears to be an event less than 24 hours old. I will add oral amiodarone to her regimen and see. It is still not clear whether she is a candidate for anticoagulation I have asked her to check with her neurologist or neurosurgeon. Depending on what her heart rate is later today she may be able to be managed as an outpatient. 2, coronary artery disease. She does have a history of coronary artery disease. She has patent stents which were recently documented as well as [place] vessel disease which is not amenable to angioplasty. She does have mildly chronically elevated troponins but did not meet the criteria for plaque rupture. I suspect the above is secondary to her paroxysmal atrial fibrillation. At this time I do not think there is a reason to reevaluate her coronary anatomy. 3. Hypertension Her blood pressure appears to be under good control on the current medical therapy with the beta-carolyn, Cardizem and valsartan. This will be continued except for the Cardizem which will be held temporarily. Her potassium can also be discontinued. 4. Cardiomyopathy She did have her left ventricular function evaluated and was noted to have an ejection fraction of approximately 35% in February 2017. I do not think there is a reason to repeat this. We will attempt to keep her in sinus rhythm and after 3 months an echo repeated as I think that this may be tachycardia mediated. 5. Hyperlipidemia She will continue with aggressive risk factor modification and lipid-lowering. Thank you for allowing me to participate in the care of your patient. Please don't hesitate to call if any issues arise
[2017-04-22] MEDS: Amiodarone 200 MG Tablet PO ×2 (08:40→21:33)
[2017-04-22] MEDS: Gabapentin 100 MG Capsule PO ×2 (08:40→18:02)
[2017-04-22] MEDS: Furosemide 40 MG Tablet PO ×2 (10:09→18:02)
[2017-04-22] MEDS: Metoprolol Tartrate 100 MG Tablet PO ×2 (10:11→21:33)
[2017-04-22] MEDS: Magnesium Oxide 400 MG Tablet PO (10:11)
[2017-04-22] MEDS: Pantoprazole Sodium 40 MG Tablet PO (10:12)
[2017-04-22] MEDS: LINAGLIPTIN 5 MG TABLET PO (10:12)
[2017-04-22 11:35] LABS: Bedside Glucose 180 mg/dL (70-110)
[2017-04-22] MEDS: dilTIAZem CD 120 MG Capsule PO (13:13)
--- NOTE | 2017-04-22 14:17 | PN_ITS ---
Subjective: Pt resting comfortably in bed NAD. No CP, palp, SOB. She unfortunately ambulated with the nurses and became tachycardic in the 130's and 140s. - Physical Exam General: Alert, Oriented x3, Cooperative HEENT: Atraumatic, PERRLA, EOMI, Normocephalic Neck: Supple, No JVD, Negative Carotid Bruits Lungs: Clear to auscultation, Normal air movement Cardiovascular: Regular rate, Irregular Rate Abdomen: Bowel Sounds Present, Soft, Non Tender Extremities: No edema, Capillary Refill Less than 3 Seconds Skin: No rashes, No breakdown Musculoskeletal: No Tenderness to Palpation of Joints or Extremities Neurological: Cranial nerves II-XII grossly intact Psych/Mental Status: Normal Affect, Appropriate, Alert and oriented to time, place, person, mood and affect Vital Signs Temp Pulse Resp BP Pulse Ox 98.0 F 75 19 H 109/46 L 96 04/22/17 13:20 04/22/17 13:20 04/22/17 13:20 04/22/17 13:20 04/22/17 13:20 Oxygen Flow Rate (L/min) 2 Oxygen Delivery Method Room Air Intake and Output for Last 24 Hours 04/20/17 04/21/17 04/22/17 23:59 23:59 23:59 Intake Total 1308 / 1308 840 / 840 Balance 1308 / 1308 840 / 840 Laboratory Tests Past 24 Hrs 04/21/17 05:24 Magnesium 1.8 POC Glucose 04/22/17 04/22/17 04/21/17 11:21 06:47 21:38 POC Glucose 180 H 155 H 160 H 04/21/17 16:09 POC Glucose 153 H Assessment/Plan 1. PAF/Flutter with RVR - she is now on diltiazem and amiodarone p.o., also on Lopressor. At rest she remains in a regular rate despite still being in flutter , however ambulated her today and her pulse did increase into the 130s and 140s. Continue full-strength aspirin as per neurology, no other oral intake ablation coagulation with history of meningioma removal. Recent echo in February EF 35%, mild LVH, moderate severe left ventricle global systolic dysfunction, 1+ MVI. 2. Elevated troponin-stable chronic per cardiology, no further workup 3. CAD-continue aspirin, statin, beta-carolyn. LDL skewed secondary to elevated triglycerides. Prior CABG in November 2016 and recent cath no intervention indicated 4. Hypertension stable 5. Hyperlipidemia-continue statin at discharge 6. Type 2 diabetes mellitus-levemir, Tradjenta and sliding scale insulin 7. Mild normocytic anemia-stable DVT prophylaxis: Heparin Discharge planning: Her rate is still uncontrolled as noted above. This patient was seen by Doyle Nye PA-C under the supervision of Doctor Cisse.
[2017-04-22 16:46] LABS: Bedside Glucose 174 mg/dL (70-110)
--- NOTE | 2017-04-22 16:58 | EKG12_ITS ---
Test Reason : Blood Pressure : / mmHG Vent. Rate : 084 BPM Atrial Rate : 084 BPM P-R Int : 000 ms QRS Dur : 122 ms QT Int : 396 ms P-R-T Axes : 000 -35 172 degrees QTc Int : 467 ms Atrial fibrillation Left axis deviation Anterior infarct , age undetermined Intra ventricular conduction delay Abnormal ECG When compared with ECG of 20-APR-2017 14:43, MANUAL COMPARISON REQUIRED, DATA IS UNCONFIRMED Confirmed by STAN ROSAS, EDWIN ([id number]), film editor AMIRA CASTRO ([id number]) on 04/25/2017 1:39:37 PM Referred By: Edwin Winchester Confirmed By:EDWIN WINCHESTER MD
[2017-04-22] MEDS: Enoxaparin 100 MG/ML Syringe 90 MG SC (18:30)
[2017-04-22] MEDS: Montelukast 10 MG Tablet PO (21:33)
[2017-04-22] MEDS: Aspirin E.C. 325 MG Tablet PO (21:33)
[2017-04-22] MEDS: Atorvastatin Calcium 40 MG Tablet PO (21:34)
[2017-04-22 21:56] LABS: Bedside Glucose 168 mg/dL (70-110)
[2017-04-23] VITALS (10 sets, daily range): BP systolic 110–129; BP diastolic 49–64; PULSE 57–83; RESP 18; TEMP 36.4–36.5; O2SAT 95–98; BMI 32.1
--- NOTE | 2017-04-23 05:00 | EKG12_ITS ---
Test Reason : AM EKG Blood Pressure : / mmHG Vent. Rate : 063 BPM Atrial Rate : 252 BPM P-R Int : 000 ms QRS Dur : 124 ms QT Int : 438 ms P-R-T Axes : 050 -37 181 degrees QTc Int : 448 ms Atrial flutter Left axis deviation ST & T wave abnormality, consider lateral ischemia Abnormal ECG When compared with ECG of 22-APR-2017 18:41, MANUAL COMPARISON REQUIRED, DATA IS UNCONFIRMED Confirmed by STAN ROSAS, EDWIN ([id number]), medical editor AMIRA CASTRO ([id number]) on 04/25/2017 1:37:32 PM Referred By: Edwin Winchester Confirmed By:EDWIN WINCHESTER MD
--- NOTE | 2017-04-23 05:55 | ECHOTEE_ITS ---
Reason For Study: A. fib/flutter Medication OLIVER probe passed without difficulty. No complications were noted. Cetacaine Topical [place] given X3 orally. Versed 2 mg given slow IVP. Fentanyl 25 mcg given slow IVP. Performed a rapid injection of agitated mix of 9 cc saline and 1cc air to assess for atrial septal defect. Left Ventricle Normal LV size. The estimated ejection fraction is 45 %. Mild global left ventricular systolic dysfunction. No regional wall motion abnormalities noted. Right Ventricle Normal RV size. Normal systolic function. Atria Intact atrial septum. No doppler evidence for ASD. The left atrium is moderately enlarged. No thrombus is detected in the left atrial appendage. Normal right atrium. Prominent eustachian valve. Mitral Valve Mild diffuse mitral valve thickening. Mild (1+) eccentric mitral valve insufficiency. Tricuspid Valve Normal tricuspid valve. Aortic Valve Trisinus/trileaflet aortic valve. Pulmonic Valve The pulmonic valve is not well visualized. Pericardium No pericardial effusion. Interpretation Summary Normal LV size. The estimated ejection fraction is 45 %. Mild global left ventricular systolic dysfunction. The left atrium is moderately enlarged. No thrombus is detected in the left atrial appendage. Mild (1+) eccentric mitral valve insufficiency. Ordering Physician: Jonel Winchester Referring Physician: Nia Uriostegui M.D. Performed By: Brigitte Mccoy RDCS
[2017-04-23] MEDS: Enoxaparin 100 MG/ML Syringe 90 MG SC ×2 (06:45→17:06)
[2017-04-23 06:55] LABS: Bedside Glucose 150 mg/dL (70-110)
--- NOTE | 2017-04-23 08:01 | PN.CARD_ITS ---
Subjectve: Patient seen and evaluated. Heart rate response improved today. Still uncontrolled when she ambulates. Objective: Vital Signs Temp Pulse Resp BP Pulse Ox 97.5 F L 67 18 110/49 L 98 04/23/17 05:47 04/23/17 05:47 04/23/17 05:47 04/23/17 05:47 04/23/17 07:36 Oxygen Flow Rate (L/min) 2 Oxygen Delivery Method Room Air Weight: 192 lb 14.472 oz Body Mass Index (BMI) 32.1 Intake and Output for Last 24 Hours 04/21/17 04/22/17 04/23/17 23:59 23:59 23:59 Intake Total 1308 / 1308 1590 / 1590 Balance 1308 / 1308 1590 / 1590 General: Awake, Alert, Oriented x 3 HEENT: PERRL, EOMI, Sclera Non Icteric Neck: Supple, Good ROM, No Lymph Node Enlargement Lungs: Clear to auscultation Cardiovascular: Irregular Rhythm, Normal S1, Normal S2, No Murmurs, No Rubs, No Gallops Vascular: No Carotid Bruits, Normal Femoral Pulses, Normal Radial Pulses, Normal Dorsalis Pedal Pulse, Normal Posterior Tibial Pulses Abdomen: Bowel Sounds Present, Soft, Non Tender, No HSM, No Organomegaly Extremities: No Cyanosis, No Clubbing, No edema Neurological: No Focal Motor or Sensory Deficit Rhythm: EKG: ECHO: Stress Test: Cardiac Cath: PCI: CT Surgery: Holter monitor: EPS: PPM: CXR: Chest CT Scan: Assessment/Plan 1. Paroxysmal atrial fibrillation Patient presents with another paroxysm of atrial fibrillation and atrial flutter.. As you know she does have a history of a meningioma and anticoagulation has been discouraged. She has been on the beta-carolyn with metoprolol 100 mg twice a day as well as Cardizem. She was loaded with intravenous amiodarone as well as Cardizem and beta-carolyn and all have failed to control her heart rate appropriately. We had a long discussion yesterday with her and the family about short-term anticoagulation and DC cardioversion and the use of amiodarone to try and maintain sinus rhythm. Ultimately she may need to be a candidate for an ablation. She will however have to clarify long- term anticoagulation with her neurologist and neurosurgeon. She and her daughter express understanding about the above and we will plan on proceeding today. 2, coronary artery disease. She does have a history of coronary artery disease. She has patent stents which were recently documented as well as [place] vessel disease which is not amenable to angioplasty. She does have mildly chronically elevated troponins but did not meet the criteria for plaque rupture. I suspect the above is secondary to her paroxysmal atrial fibrillation. At this time I do not think there is a reason to reevaluate her coronary anatomy. 3. Hypertension Her blood pressure appears to be under good control on the current medical therapy with the beta-carolyn, Cardizem and valsartan. This will be continued except for the Cardizem which will be held temporarily. Her potassium can also be discontinued. 4. Cardiomyopathy She did have her left ventricular function evaluated and was noted to have an ejection fraction of approximately 35% in February 2017. I do not think there is a reason to repeat this. We will attempt to keep her in sinus rhythm and after 3 months an echo repeated as I think that this may be tachycardia mediated. 5. Hyperlipidemia She will continue with aggressive risk factor modification and lipid-lowering. Thank you for allowing me to participate in the care of your patient. Please don't hesitate to call if any issues arise
[2017-04-23] MEDS: dilTIAZem CD 120 MG Capsule PO (09:20)
[2017-04-23] MEDS: Gabapentin 100 MG Capsule PO ×2 (09:20→17:05)
[2017-04-23] MEDS: Amiodarone 200 MG Tablet PO ×2 (09:20→17:18)
[2017-04-23] MEDS: Furosemide 40 MG Tablet PO ×2 (09:21→17:05)
[2017-04-23] MEDS: Metoprolol Tartrate 100 MG Tablet PO (09:21)
[2017-04-23] MEDS: Magnesium Oxide 400 MG Tablet PO (09:22)
[2017-04-23] MEDS: LINAGLIPTIN 5 MG TABLET PO (09:22)
[2017-04-23] MEDS: Pantoprazole Sodium 40 MG Tablet PO (09:22)
[2017-04-23] MEDS: 0.9% NaCl Peripheral Flush Adult/Peds IV (10:36)
[2017-04-23] MEDS: 0.9% Normal Saline 1,000 ML 15 ML IV (10:37)
--- NOTE | 2017-04-23 13:46 | PCM.OP.BLANK ---
Operative Report Date of Procedure: 04/23/17 CONSCIOUS SEDATION REPORT DATE OF SERVICE: April 23, 2017 BRIEF HISTORY OF PRESENT ILLNESS: The patient is a 76-year-old female who was admitted to the hospital on April 20 with heart palpitations and chest tightness. She was subsequently found to be in atrial fibrillation with a rapid ventricular rate. She did undergo a transesophageal echocardiogram which revealed an ejection fraction of 40-45%. She does endorse a history of obstructive sleep apnea, for which she reports compliance with nocturnal Pap therapy. She also reports having a history of asthma. She reports no previous anesthetic complications. She denies any drug allergies. PHYSICAL EXAMINATION: VITAL SIGNS: Reviewed and were acceptable. GENERAL: The patient is an obese female, in no apparent distress, speaking in full sentences. HEENT: Normocephalic, atraumatic. Mucous membranes are moist and pink. Good mouth opening noted. Trachea is midline. Good neck mobility. CHEST: S1, S2 irregularly irregular. No murmurs, rubs or gallops were noted. LUNGS: Clear to auscultation bilaterally without appreciable wheezes, rales or rhonchi. ABDOMEN: Soft, nontender, nondistended. Positive bowel sounds. EXTREMITIES: There is no clubbing, cyanosis or edema. ASA Class: II DESCRIPTION OF PROCEDURE: After confirmation of informed consent, the patient's anesthesia plan was reviewed in detail. Etomidate was chosen. Risks and benefits were reviewed and the patient agreed to proceed. At 1301, the patient was given 4 mg of etomidate. The patient achieved an appropriate level of sedation and was given a 200 joule synchronized cardioversion by Dr. Winchester at the bedside. This was successful in achieving normal sinus rhythm. The patient was monitored until 1312, at which time she reached her baseline mental status and function. The patient tolerated the procedure well. COMPLICATIONS: None ESTIMATED BLOOD LOSS: None RECOMMENDATIONS: Okay to recover in usual fashion.
[2017-04-23 13:56] LABS: Bedside Glucose 141 mg/dL (70-110)
--- NOTE | 2017-04-23 14:45 | PCM.OP.BLANK ---
Operative Report Date of Procedure: 04/23/17 Atrial flutter Patient underwent a OLIVER earlier today which demonstrated no evidence of left atrial appendage thrombus. The patient was seen by Dr. Motta of the pulmonary critical care division. After appropriate informed consent was obtained anterior posterior pads were applied over her chest and back respectively. 200 J of synchronized DC cardioversion energy were applied after patient was appropriately sedated with 4 mg of intravenous etomidate. Patient reverted to sinus rhythm with a short period of her sinus pause. Patient tolerated the procedure well with no neurological deficit. Postoperative EKG demonstrated normal sinus rhythm. Next Conclusion 1. successful DC cardioversion from atrial flutter unresponsive to medical therapy. Patient cannot be anticoagulated long-term due to previous cranial surgery..
--- NOTE | 2017-04-23 15:33 | PCM.DC ---
You will use the following diet at home:: Calorie/Carbohydrate Controlled (specify 1200, 1400, etc) - 1800 jyoti/day, Cardiac - 2 g sodium per day Your food should be the consistency of: Regular Your liquids should be the consistency of: Regular/Thin Discharge Activity: Return to Normal Activity Allergies/Adverse Reactions: Allergies No Known Allergies Allergy (Verified 03/14/17 10:06) Medications to take at Discharge Aspirin E.C. [Ecotrin] 325 mg PO DAILY@0800 11/11/16 Cholecalciferol (Vitamin D3) [Vitamin D3] 2,000 unit PO DAILY 11/11/16 Fluticasone/Salmeterol [Advair 500-50 Diskus] 1 puff INHALATION BID 11/11/16 Lansoprazole 30 mg PO DAILY 11/11/16 Linagliptin [Tradjenta] 5 mg PO DAILY 11/11/16 Methscopolamine [place] 5 mg PO BID 11/11/16 Montelukast Sodium [Singulair] 10 mg PO DAILY 11/11/16 Nitroglycerin [Nitrostat] 0.4 mg SL DAILY PRN 11/11/16 Valsartan [Diovan] 320 mg PO DAILY 11/11/16 Albuterol IH (ProAir) [Proair Hfa] 2 puff INHALATION Q4H PRN PRN 11/15/16 magnesium oxide 400 mg tablet 400 mg PO DAILY #30 tab 02/12/17 potassium chloride ER 20 mEq tablet,extended release(part/cryst) 20 meq PO QDAY #30 tab 02/12/17 furosemide 40 mg tablet 40 mg PO BID #60 tab 02/19/17 metoprolol tartrate 100 mg tablet 100 mg PO BID 02/28/17 gabapentin 100 mg capsule 100 mg PO BIDCM cap 03/14/17 metformin 500 mg tablet 1,000 mg PO BID tab 03/14/17 Amiodarone HCl [Cordarone] 200 mg PO BID #60 tab 04/23/17 Atorvastatin Calcium [Lipitor] 40 mg PO QHS #30 tab 04/23/17 Insulin Detemir [Levemir FlexPen] 17 units SC QHS insuln.pen 04/23/17 The following prescriptions were given: Amiodarone HCl [Cordarone] 200 mg PO BID #60 tab Atorvastatin Calcium [Lipitor] 40 mg PO QHS #30 tab Primary Care Physician: Nia Uriostegui DO [Primary Care Provider] - Please follow up with your Primary Care Physician in: 1-2 weeks Please Follow Up With: Jonel Winchester MD When: 1-2 weeks Please Follow Up With: Neurology When: 3-4 weeks Proposed Discharge Date: 04/23/17
--- NOTE | 2017-04-23 15:35 | PCM.DC.SUM ---
Discharge Date and Diagnosis Date of Admission: 04/19/17 Date of Discharge: 04/23/17 - Primary Discharge Diagnosis Paroxysmal AF/Flutter with RVR CAD Cardiomyopathy HLD Elevated troponin T2DM Mild normocytic anemia - Secondary Discharge Diagnosis Chronic Problems (Last Updated 03/14/17 @ 10:05 by Sarkis Orozco) Other secondary pulmonary hypertension (Chronic) Cardiomyopathy in diseases classified elsewhere (Chronic) Other cerebral infarction (Chronic) Paroxysmal atrial fibrillation (Chronic) Presence of aortocoronary bypass graft (Chronic) 08-06-04 CABG x2 VILLAGRAN side to side to second Diagonal and end to side to Anterior Descending artery in Sequential fashion Atrial enlargement, left (Chronic) Atherosclerotic heart disease of [place] coronary artery without angina pectoris (Chronic) 08/06/2004 CABG x2 VILLAGRAN side to side to second Diagonal and end to side to Anterior Descending artery in Sequential fashion. C: 08/01/2004; 10/15/2011 HTN (hypertension) (Chronic) HLD (hyperlipidemia) (Chronic) Asthma (Chronic) Heart failure with preserved ejection fraction (Chronic) Atrial fibrillation (Chronic) Gout (Chronic) Hypertension (Chronic) DM2 (diabetes mellitus, type 2) (Chronic) Obesity (Chronic) Meningioma (Chronic) Obesity (BMI 30.0-34.9) (Chronic) Diabetes mellitus type 2 in obese (Chronic) Non-ST elevation myocardial infarction (NSTEMI) due to mismatch of myocardial oxygen supply and demand (Chronic) Hypomagnesemia (Chronic) Hypokalemia (Chronic) Atrial fibrillation with RVR (Chronic) Hospital Course and Treatment Imaging Results: RAD/Chest 1 View (Portable) IMPRESSION: No acute thoracic pathology. OLIVER: Interpretation Summary Normal LV size. The estimated ejection fraction is 45 %. Mild global left ventricular systolic dysfunction. The left atrium is moderately enlarged. No thrombus is detected in the left atrial appendage. Mild (1+) eccentric mitral valve insufficiency. Consultations: Cardiology-[place] Operations: None Procedures: Cardioversion, Transesophageal Echo Summary of Care Provided: Physical exam on day of discharge: General: Resting comfortably NAD Psych: A/Ox3 normal affect HEENT: [place] AT NC Neck: Supple NT CV: irregularly irreg no m/t/r/g/h Resp: CTA Abd: [id number] Soft NT no guarding or rigidity Ext: DP2+= no edema Skin: W/D normal turgor Lymph/Heme: No active bleeding or adenopathy Neuro: CN2-12 intact Hospital course: The patient is a 76 year old F who presented to the ER with chest tightness off and on for months with palpitations and an elevated pulse. She was found to have elevated troponin and Afib with RVR. She was admitted and Cardiology consulted. She has a hx of PAF, CAD with CABG Nov 2016 with subsequent heart cath x 2 for chest tightness, systolic heart failure, DMt2, and a meningioma that was surgically removed. She is not on oral anticoagulants except full strength aspirin because of the meningioma removal. She had been on metoprolol and diltiazem at home and she was started on IV amiodarone. Cardiology noted chronic troponin elevation with recent aggressive workup as above and no further workup was indicated. She was unable to have her rhythm controlled with cardizem and amiodarone. She underwent successful cardioversion. Following the cardioversion she was initiated on amiodarone PO and told to continue full strength aspirin and her previous metoprolol dose. She was also started on atorvastatin while here. Her levemir was slightly increased. She needs to follow up with cardiology, her prior neurologist, and with her PCP. She is in stable condition and discharged home. This patient was seen by Doyle Nye PA-C under the supervision of Doctor Jonah. [] Discharge Diet: Low fat/ Low Cholesterol, 1800 Calorie Control Diet, 2000 mg Sodium Diet Discharge Activity: Return to Normal Activity Home Medications: Medications to take at Discharge Aspirin E.C. [Ecotrin] 325 mg PO DAILY@0800 11/11/16 Cholecalciferol (Vitamin D3) [Vitamin D3] 2,000 unit PO DAILY 11/11/16 Fluticasone/Salmeterol [Advair 500-50 Diskus] 1 puff INHALATION BID 11/11/16 Lansoprazole 30 mg PO DAILY 11/11/16 Linagliptin [Tradjenta] 5 mg PO DAILY 11/11/16 Methscopolamine [place] 5 mg PO BID 11/11/16 Montelukast Sodium [Singulair] 10 mg PO DAILY 11/11/16 Nitroglycerin [Nitrostat] 0.4 mg SL DAILY PRN 11/11/16 Valsartan [Diovan] 320 mg PO DAILY 10/02/17 Albuterol IH (ProAir) [Proair Hfa] 2 puff INHALATION Q4H PRN PRN 11/15/16 magnesium oxide 400 mg tablet 400 mg PO DAILY #30 tab 02/12/17 potassium chloride ER 20 mEq tablet,extended release(part/cryst) 20 meq PO QDAY #30 tab 02/12/17 furosemide 40 mg tablet 40 mg PO BID #60 tab 02/19/17 metoprolol tartrate 100 mg tablet 100 mg PO BID 02/28/17 gabapentin 100 mg capsule 100 mg PO BIDCM cap 03/14/17 metformin 500 mg tablet 1,000 mg PO BID tab 03/14/17 Amiodarone HCl [Cordarone] 200 mg PO BID #60 tab 04/23/17 Atorvastatin Calcium [Lipitor] 40 mg PO QHS #30 tab 04/23/17 Insulin Detemir [Levemir FlexPen] 17 units SC QHS insuln.pen 04/23/17 Following Prescrptions Were Given to Patient: Amiodarone HCl [Cordarone] 200 mg PO BID #60 tab Atorvastatin Calcium [Lipitor] 40 mg PO QHS #30 tab Primary Care Physician: Nia Uriostegui DO [Primary Care Provider] - Please follow up with your Primary Care Physician in: 1-2 weeks Please Follow Up With: Jonel Winchester MD When: 1-2 weeks Please Follow Up With: Neurology When: 3-4 weeks Disposition: Home Minutes spent on discharge:: 35 Patient Condition:: Stable Meaningful Use Info Meaningful Use Diagnoses (Choose all that apply): None applicable
[2017-04-23 16:10] LABS: Bedside Glucose 157 mg/dL (70-110)
== END 2017-04-23 17:33 | disposition home or self-care (01) | DRG 309 ==
LOC: ED 18:45 → PCU 20:16
PROVIDERS: Physician Assistant; Admitting Provider Internal Medicine; Emergency Provider Emergency Medicine; Family Provider Internal Medicine; PCP Internal Medicine; Visit Provider Internal Medicine
DX: I48.0 Paroxysmal atrial fibrillation (principal); I50.30 Unspecified diastolic (congestive) heart failure; I27.29 Other secondary pulmonary hypertension; I42.9 Cardiomyopathy, unspecified; I11.0 Hypertensive heart disease with heart failure; E11.9 Type 2 diabetes mellitus without complications; D64.9 Anemia, unspecified; I48.92 Unspecified atrial flutter; I25.10 Atherosclerotic heart disease of native coronary artery without angina pectoris; E78.5 Hyperlipidemia, unspecified; Z79.899 Other long term (current) drug therapy; E66.9 Obesity, unspecified; Z68.32 Body mass index [BMI] 32.0-32.9, adult; Z95.1 Presence of aortocoronary bypass graft; I25.2 Old myocardial infarction; M10.9 Gout, unspecified; Z86.011 Personal history of benign neoplasm of the brain; Z79.82 Long term (current) use of aspirin; Z79.4 Long term (current) use of insulin
CPT/HCPCS: 36415; 71045; 80048; 80053; 80061; 82962; 83735; 84443; 84484; 85025; 92960; 93005; 93312; 93320; 93325; 94640; 99283; J7030; J7040; A4216; J2310

== ENCOUNTER 2017-05-04 20:39 | Emergency (ER) | payer MEDICARE, OTHER, SELFPAY ==
[2017-05-04] VITALS (9 sets, daily range): BP systolic 116–152; BP diastolic 56–96; PULSE 72–124; RESP 18–23; TEMP 36.1; O2SAT 94–100; BMI 32.8
--- NOTE | 2017-05-04 20:43 | ED.RN ---
RN CALLED FOR EKG IN PT ROOM.
--- NOTE | 2017-05-04 21:06 | NURSING ---
HAD DR. NICE PAGED
--- NOTE | 2017-05-04 21:12 | RAD_ITS ---
STUDY: X-RAY CHEST REASON FOR EXAM: Female, 76 years old. Atrial fibrillation TECHNIQUE: Single AP portable view of the chest. COMPARISON: Chest x-ray 04/19/2017, CT scan 11/13/2016. FINDINGS: The lungs are clear and expanded. There is no demonstrated pleural abnormality. Mild cardiomegaly status post CABG. Again seen is a right aortic arch and tortuous aorta. Normal visualized thoracic spine. Normal visualized ribs, clavicles, and shoulders. There is no demonstrated abnormality of the visualized soft tissue structures of the upper abdomen. RAD/Chest 1 View (Portable) IMPRESSION: No acute chest disease. Stable mild cardiomegaly. Electronically Signed: Rafael Perez MD at 21:43 EDT , Service support ,
--- NOTE | 2017-05-04 21:13 | EKG12_ITS ---
Test Reason : PALPITATIONS Blood Pressure : / mmHG Vent. Rate : 129 BPM Atrial Rate : 104 BPM P-R Int : 000 ms QRS Dur : 126 ms QT Int : 346 ms P-R-T Axes : 000 107 242 degrees QTc Int : 506 ms Atrial fibrillation Non-specific intra-ventricular conduction block T wave abnormality, consider inferior ischemia Abnormal ECG Confirmed by STAN ROSAS, EDWIN ([id number]), legal editor AMIRA CASTRO ([id number]) on 05/06/2017 1:08:29 PM Referred By: RICKY NAPOLES Confirmed By:EDWIN PIERCE MD
[2017-05-04] MEDS: Enoxaparin 100 MG/ML Syringe 90 MG SC (21:24)
[2017-05-04 21:33] LABS: Absolute Neutrophil Count 4.9 X10^3/uL (2.0-7.7); Basophil# 0.03 X10^3/uL; Basophil% 0.3 % (0-1); Eosinophil# 0.16 X10^3/uL; Eosinophils% 1.7 % (0-5); Hematocrit 38.7 % (37-47); Hemoglobin 11.9 g/dl (12.0-15.0); Lymphocyte % 35.4 % (19-41); Mean Corp Hgb Conc 30.7 g/gl (32-36); Mean Corpuscular Hgb 25.5 pg (27.0-32.0); Mean Corpuscular Volume 82.9 fL (81-99); Mean Platelet Vol. 10.3 fl (6.2-12.0); Monocyte# 0.88 X10^3/uL; Monocyte% 9.4 % (0-10); Neutrophil # 4.93 X10^3/uL (2.7-7.7); Neutrophil % 52.9 % (47-70); Platelet Count 279 K/mm3 (150-450); RBC Distribution Width CV 15.3 % (11.6-14.6); RBC Distribution Width SD 46.2 fl (35.1-43.9); Red Blood Count 4.67 M/mm3 (4.2-5.4); White Blood Count 9.3 K/mm3 (4.4-11.0)
[2017-05-04 21:50] LABS: POSITIVE COUNT NO; POSITIVE DIFFERENTIAL NO; POSITIVE MORPHOLOGY NO
[2017-05-04 21:54] LABS: Anion Gap 11 (5-15); BUN 22 mg/dL (7-18); BUN/Creat Ratio 17.5 RATIO (10-20); Calcium,Total 8.5 mg/dL (8.5-10.1); Chloride 104 mmol/L (98-107); Creatinine, Serum 1.26 mg/dL (0.55-1.02); EST Glomerular Filtration Rate 44 mL/min (>60); Est Glom Filt Rate - Afr Amer 53 mL/min (>60); Estimated Creatinine Clearance 34.18 ml/min; Glucose 184 mg/dL (74-106); Potassium 4.4 mmol/L (3.5-5.1); Sodium Level 142 mmol/L (136-145)
[2017-05-04] MEDS: Etomidate 20 MG/10 ML Vial 4 MG IV (22:23)
--- NOTE | 2017-05-04 22:37 | EKG12_ITS ---
Test Reason : REPEAT Blood Pressure : / mmHG Vent. Rate : 077 BPM Atrial Rate : 077 BPM P-R Int : 198 ms QRS Dur : 128 ms QT Int : 408 ms P-R-T Axes : 045 -40 152 degrees QTc Int : 461 ms Normal sinus rhythm Left axis deviation Non-specific intra-ventricular conduction block T wave abnormality, consider lateral ischemia Abnormal ECG Confirmed by STAN ROSAS, EDWIN ([id number]), development editor AMIRA CASTRO ([id number]) on 05/06/2017 1:42:52 PM Referred By: DONY Confirmed By:EDWIN PIERCE MD
--- NOTE | 2017-05-04 23:02 | ED.DCSUM_ITS ---
- ER Visit Summary Date of Service: 05/04/17 Chief Complaint: Heart racing, shortness of breath History of Present Illness: The patient is a 76 F with a history of paroxysmal atrial fibrillation. Patient was admitted April 19 for A. fib/flutter with RVR. She was difficult to control on medications and was cardioverted prior to discharge. Patient states that she did not feel well around 4 AM this morning. She took her pulse at home throughout the day today and noted it to be in the 120s. Patient did take an extra dose of her metoprolol this morning without improvement. Patient is not on anticoagulants secondary to a prior meningioma removal. Patient reports having some chest tightness and shortness of breath while she was walking up the hill from the parking area into the emergency room. While sitting at rest at this time she denies shortness of breath or chest pain. Physical Examination: Vital signs reveal blood pressure 152/85, temperature 97.0 , heart rate 124, respiratory rate 23, pulse ox 99% on room air. Patient sitting upright in bed no acute distress. Head neck examination is unremarkable. Heart is irregular and tachycardic. Lung sounds are clear. Abdomen is soft and nontender. Extremity examination reveals equal palpable pulses throughout. Test Results: EKG is A. fib at 129. Intraventricular conduction delay is noted. Portable chest x-ray is unremarkable. CBC is significant only for hemoglobin 11.9. Chemistry studies reveal glucose of 184, BUN 22, creatinine 1.26. Troponin is less than 0.02. Emergency Department Course and Treatment: Because the patient is known to be difficult to control with medications, I spoke with Dr. Winchester early in the patient's course. He asked that we give the patient is single dose of Lovenox and electively cardiovert her here in the emergency room. Patient was given Lovenox and 1 hour later was consented for procedural sedation and cardioversion. She was given 4 mg of IV etomidate and synchronized cardioversion was performed at 200 J ?1 shock. Patient converted to sinus rhythm. She awoke from sedation without difficulty. She has equal strength and sensation throughout without complaint. Patient has been observed to period of 1 hour after her cardioversion is remained stable and in sinus rhythm. She be discharged to home at this time. Treatment Plan: [] Disposition: Discharge Impression: 1. A. fib RVR 2. Electrical cardioversion by ED physician This note was generated with TrumpIT dictation software. It may contain incorrect words, spelling, and punctuation that were not noted in review of the chart prior to signing ED Disposition - Plan for ED Patient: Chief Complaint: Palpitations Referrals: Nia Uriostegui DO [Primary Care Provider] -
--- NOTE | 2017-05-04 23:40 | ED.DEP ---
ED Disposition - Plan for ED Patient: Disposition: Home or Assisted Living Chief Complaint: Palpitations Instructions: ED Afib, ED Cardioversion Electrical Referrals: Nia Uriostegui DO [Primary Care Provider] - Jonel Winchester MD [STAFF PHYSICIAN] - Keep Juani appointment
== END 2017-05-04 23:53 | disposition home or self-care (01) ==
PROVIDERS: Emergency Provider Emergency Medicine; Family Provider Internal Medicine; PCP Internal Medicine
DX: I48.91 Unspecified atrial fibrillation (principal); E11.9 Type 2 diabetes mellitus without complications; I10 Essential (primary) hypertension; E78.00 Pure hypercholesterolemia, unspecified; J45.909 Unspecified asthma, uncomplicated; I25.2 Old myocardial infarction; Z95.1 Presence of aortocoronary bypass graft
CPT/HCPCS: 92960; 71045; 80048; 84484; 85025; 93005; 99152; 99285; J7030; A4216

== ENCOUNTER 2017-08-24 09:32 | Emergency (ER) | payer MEDICARE, OTHER, SELFPAY ==
[2017-08-24] VITALS (12 sets, daily range): BP systolic 103–154; BP diastolic 56–92; PULSE 75–135; RESP 12–174; TEMP 35.8; O2SAT 91–99; BMI 33.5
--- NOTE | 2017-08-24 09:47 | RAD_ITS ---
STUDY: X-RAY CHEST REASON FOR EXAM: Female, 76 years old. Irregular heart rhythm TECHNIQUE: PA and lateral views of the chest. COMPARISON: May 04, 2017 FINDINGS: There is hyperinflation of the lungs consistent with chronic obstructive lung disease (COPD). There is no demonstrated pleural abnormality. Sternal cerclage wires are present from a prior sternotomy. Moderate cardiac enlargement. Normal mediastinum and emil. Normal visualized pulmonary arteries. Stable right-sided aortic arch There is an increased kyphosis of the thoracic spine. Compression fracture of the lower thoracic spine is stable. Normal visualized ribs, clavicles, and shoulders. There is no demonstrated abnormality of the visualized soft tissue structures of the upper abdomen. RAD/Chest PA and Lateral IMPRESSION: Degenerative changes, as described above. No demonstrated acute cardiopulmonary process. Electronically Signed: Clyde Matute MD at 11:02 EDT , Service support ,
--- NOTE | 2017-08-24 09:47 | EKG12_ITS ---
Test Reason : SOB Blood Pressure : / mmHG Vent. Rate : 132 BPM Atrial Rate : 132 BPM P-R Int : 120 ms QRS Dur : 128 ms QT Int : 348 ms P-R-T Axes : 000 -52 168 degrees QTc Int : 515 ms Atrial flutter with 2:1 block Left axis deviation Non-specific intra-ventricular conduction block T wave abnormality, consider lateral ischemia Abnormal ECG Confirmed by STAN ROSAS, EDWIN ([id number]), newspaper managing editor AMIRA CASTRO ([id number]) on 08/26/2017 12:50:18 PM Referred By: YONI Confirmed By:EDWIN PIERCE MD
[2017-08-24 10:21] LABS: Absolute Lymphocyte Count 2.43 X10^3/ul (0.83-4.51); Basophil# 0.04 X10^3/uL; Basophil% 0.4 % (0-1); Eosinophil# 0.14 X10^3/uL; Eosinophils% 1.5 % (0-5); Hematocrit 40.3 % (37-47); Hemoglobin 12.5 g/dl (12.0-15.0); Lymphocyte # 2.43 X10^3/ul (4.0); Lymphocyte % 25.3 % (19-41); Mean Corpuscular Hgb 26.2 pg (27.0-32.0); Mean Corpuscular Volume 84.5 fL (81-99); Mean Platelet Vol. 10.2 fl (6.2-12.0); Monocyte# 0.93 X10^3/uL; Monocyte% 9.7 % (0-10); Neutrophil # 6.01 X10^3/uL (2.7-7.7); Neutrophil % 62.7 % (47-70); Platelet Count 235 K/mm3 (150-450); RBC Distribution Width CV 14.8 % (11.6-14.6); RBC Distribution Width SD 46.2 fl (35.1-43.9); Red Blood Count 4.77 M/mm3 (4.2-5.4); White Blood Count 9.6 K/mm3 (4.4-11.0)
[2017-08-24 10:24] LABS: Anion Gap 9 (5-15); BUN 14 mg/dL (7-18); BUN/Creat Ratio 11.6 RATIO (10-20); Calcium,Total 8.8 mg/dL (8.5-10.1); Chloride 105 mmol/L (98-107); Creatinine, Serum 1.21 mg/dL (0.55-1.02); EST Glomerular Filtration Rate 46 mL/min (>60); Est Glom Filt Rate - Afr Amer 56 mL/min (>60); Estimated Creatinine Clearance 35.59 ml/min; Glucose 171 mg/dL (74-106); Potassium 4.1 mmol/L (3.5-5.1); Sodium Level 139 mmol/L (136-145)
[2017-08-24 10:25] LABS: POSITIVE COUNT NO; POSITIVE DIFFERENTIAL NO; POSITIVE MORPHOLOGY NO
[2017-08-24] MEDS: Ondansetron 4 MG/2 ML Vial IV (13:17)
[2017-08-24] MEDS: Propofol 200 MG/20 ML Vial IV BOLUS (13:33)
--- NOTE | 2017-08-24 13:36 | ED.VISSUMM ---
- ER Visit Summary Date of Service: 08/24/17 Chief Complaint: Shortness of breath, rapid heart rate with history of A. fib History of Present Illness: The patient is a 76 F who presents because of rapid heart rate on pulse oximeter reading. She was unaware that her heart was going rapidly. She states yesterday she felt more short of breath and she did Friday. Onset of the shortness was Friday. She denies dyspnea at rest and dyspnea with exertion. She also has a nonproductive cough. She does have one large pillow orthopnea which is unchanged. She denies PND. She denies increased swelling of her lower extremities. She denies any chest pain of any type. She denies any exertional chest discomfort, jaw pain, neck pain or extremity pain. She has no other complaints. Physical Examination: Vital signs remarkable for heart rate 129 and blood pressure 149/91. Head is atraumatic normocephalic. Pupils are equal round reactive. Extraocular muscles are intact. TMs are pearly white with landmarks noted. Nares patent with no drainage. Posterior pharynx without erythema or exudate. Uvula is midline. There is no dysphonia or dysphasia. Trachea is midline. There is no stridor with auscultation of the neck. Heart is rapid and regular without murmur, gallop or rub. Lungs reveal fine rales at the base. Abdomen is soft nontender with normal bowel sounds. There is 1+ edema the lower extremity's. There is no asymmetry, discoloration, leg vein distention, palpable cords test on the description deep venous system. She is alert and oriented ?3 with a nonfocal neurologic exam. Test Results: Portable chest x-ray reveals chronic changes with cardiomegaly no evidence of heart failure. EKG atrial flutter rate of 132. There is an intraventricular conduction delay. CBC unremarkable. Electro panels marked for glucose 171 and creatinine 1.21. Troponin with 48 hours of symptoms is less than 0.015. Emergency Department Course and Treatment: To evaluate patient's dyspnea with known history of A. fib, coronary disease EKG, chest x-ray and blood work was obtained. Differential includes A. fib flutter, CHF, pulmonary etiology or anginal equivalent. Treatment Plan: Case was discussed with Dr. Jonel Winchester. He agrees patients in a flutter. Since patient is anticoagulated, Eliquis and has taken her dose of the last 24 hours will cardiovert. Patient was consented. She given opportunity ask questions. None were asked. He is been cardioverted twice in the past without any complications other than nausea on one occasion. Patient received a total of 70 mg of propofol. She was cardioverted with 100 J. Total time for procedure 5 minutes Disposition: Discharged home in stable improved condition Impression: 1. Atrial flutter, rate 132 2. Dyspnea secondary #1 3. Cardioversion 4. Procedural sedation (5 minutes) 5. History of coronary disease This note was generated with [employer] dictation software. It may contain incorrect words, spelling, and punctuation that were not noted in review of the chart prior to signing ED Disposition - Plan for ED Patient: Disposition: Home or Assisted Living Chief Complaint: Shortness of Breath Instructions: ED Paroxysmal Atrial Flutter Referrals: Nia Uriostegui DO [Primary Care Provider] - Jonel Winchester MD [STAFF PHYSICIAN] - 5-7 Days
--- NOTE | 2017-08-24 13:41 | EKG12_ITS ---
Test Reason : POST-CARDIOVERSION Blood Pressure : / mmHG Vent. Rate : 075 BPM Atrial Rate : 075 BPM P-R Int : 186 ms QRS Dur : 120 ms QT Int : 426 ms P-R-T Axes : 057 -49 124 degrees QTc Int : 475 ms Normal sinus rhythm Left axis deviation Anterior infarct , age undetermined ST & T wave abnormality, consider lateral ischemia Abnormal ECG Confirmed by STAN ROSAS, EDWIN ([id number]), mapping editor AMIRA CASTRO ([id number]) on 08/26/2017 1:37:24 PM Referred By: YONI Confirmed By:EDWIN PIERCE MD
== END 2017-08-24 14:03 | disposition home or self-care (01) ==
PROVIDERS: Emergency Provider Emergency Medicine; Family Provider Internal Medicine; PCP Internal Medicine
DX: I48.92 Unspecified atrial flutter (principal); Z79.01 Long term (current) use of anticoagulants; I25.10 Atherosclerotic heart disease of native coronary artery without angina pectoris; I48.91 Unspecified atrial fibrillation
CPT/HCPCS: 36591; 71046; 80048; 84484; 85025; 93005; 96374; 99285; J7030; A4216; J2405

== ENCOUNTER 2017-09-29 08:37 | Emergency (ER) | payer MEDICARE, OTHER, SELFPAY ==
[2017-09-29] VITALS (10 sets, daily range): BP systolic 104–157; BP diastolic 50–110; PULSE 32–128; RESP 16–18; TEMP 36.9; O2SAT 95–99; BMI 34.2
[2017-09-29] MEDS: 0.9% Normal Saline 1,000 ML 150 ML IV (09:11)
[2017-09-29] MEDS: dilTIAZem 25 MG/5 ML Vial 20 MG IV BOLUS (09:11)
--- NOTE | 2017-09-29 09:12 | ED.VISSUMM ---
- ER Visit Summary Date of Service: 09/29/17 Chief Complaint: Palpitations History of Present Illness: The patient is a [address] Winchester and Dr. Uriostegui. She reports that she is in atrial fibrillation again and that it started 2 days ago. She reports that her heart rates been as high as 160. She took an extra 100 mg of amiodarone 2 days ago and then again yesterday. She denies any chest pain. She does report that she is short of breath with exertion. Patient reports that she has had this multiple times in the past and has been cardioverted as recently as 1 month ago for this. She is on Eliquis. Her last dose was this morning. She has not missed any doses. Physical Examination: Vitals: 98.4, 157/92, 127, 17, 95% on room air which is not hypoxic. General: Well-nourished and well-developed. Head: Normocephalic atraumatic. Neck: Supple, no lymphadenopathy. No JVD. Nontender. Cardiovascular: Tachycardic regular rhythm. No murmurs. Respiratory: No respiratory distress. Clear to auscultation bilaterally. Abdominal: Soft, nontender, nondistended, normal bowel sounds. No guarding, rebound, or peritoneal signs. Back: Nontender. Extremities: Nontender, no edema. Skin: Normal color, no rash. Neurologic: Alert and oriented ?3. Cranial nerves II through XII are intact. Normal strength and sensation. Psych: Normal affect. Test Results: EKG shows atrial flutter at 129 with left bundle branch block. It is unchanged from August 24, 2017. CBC is normal. Chem-7 is marked for creatinine 1.32 and glucose of 198. Troponin is 0.02. Chest x-ray shows atelectasis. Repeat EKG after cardioversion is sinus bradycardia with marked sinus arrhythmia at 45. No ischemic changes. Emergency Department Course and Treatment: Patient had an IV placed. She was given Cardizem IV. Her heart rate is decreased into the 80s. She is resting comfortably. Had a prolonged discussion with the patient about treatment options. She has been cardioverted multiple times in the past. After discussion with Dr. Winchester the patient was given 8 mg of etomidate and had synchronized cardioversion undertaken at 200 J. Following this she had a significant pause and then entered sinus bradycardia in the 30s-50s. She did maintain a pressure with this. She denied any chest pain with it. She is able to mentate appropriately. The patient reentered a sinus rhythm approximately 15 minutes after the cardioversion. She has been observed for over an hour and has remained in sinus rhythm throughout this. She is resting comfortably and has no complaint of chest pain, shortness of breath, or palpitations. Treatment Plan: Patient will be discharged instructions to increase her amiodarone from 100-200 mg a day. She will be scheduled to have an EKG and Dr. Winchester's office. Return to the emergency department for any worsening symptoms. Disposition: To home in improved and stable condition. Impression: 1. Atrial flutter. 2. Cardioversion. 3. Procedural sedation. 4. Sinus bradycardia. This note was generated with [employer] dictation software. It may contain incorrect words, spelling, and punctuation that were not noted in review of the chart prior to signing ED Disposition - Plan for ED Patient: Chief Complaint: Palpitations Instructions: ED Paroxysmal Atrial Flutter Referrals: Jonel Winchester MD [STAFF PHYSICIAN] - Keep Juani appointment Additional Instructions: Increase amiodarone to 200 mg once a day.
[2017-09-29 09:14] LABS: Absolute Lymphocyte Count 2.24 X10^3/ul (0.83-4.51); Absolute Neutrophil Count 5.2 X10^3/uL (2.0-7.7); Basophil# 0.02 X10^3/uL; Basophil% 0.2 % (0-1); Eosinophil# 0.13 X10^3/uL; Eosinophils% 1.6 % (0-5); Hematocrit 39.4 % (37-47); Hemoglobin 12.3 g/dl (12.0-15.0); Lymphocyte # 2.24 X10^3/ul (4.0); Lymphocyte % 26.9 % (19-41); Mean Corp Hgb Conc 31.2 g/gl (32-36); Mean Corpuscular Hgb 26.6 pg (27.0-32.0); Mean Corpuscular Volume 85.1 fL (81-99); Monocyte# 0.68 X10^3/uL; Monocyte% 8.2 % (0-10); Neutrophil # 5.22 X10^3/uL (2.7-7.7); Neutrophil % 62.6 % (47-70); POSITIVE COUNT NO; POSITIVE DIFFERENTIAL NO; POSITIVE MORPHOLOGY NO; Platelet Count 218 K/mm3 (150-450); RBC Distribution Width CV 14.8 % (11.6-14.6); RBC Distribution Width SD 46.1 fl (35.1-43.9); Red Blood Count 4.63 M/mm3 (4.2-5.4); White Blood Count 8.3 K/mm3 (4.4-11.0)
[2017-09-29 09:27] LABS: Anion Gap 8 (5-15); BUN 18 mg/dL (7-18); BUN/Creat Ratio 13.6 RATIO (10-20); Calcium,Total 8.9 mg/dL (8.5-10.1); Chloride 102 mmol/L (98-107); Creatinine, Serum 1.32 mg/dL (0.55-1.02); EST Glomerular Filtration Rate 42 mL/min (>60); Est Glom Filt Rate - Afr Amer 50 mL/min (>60); Estimated Creatinine Clearance 32.63 ml/min; Glucose 188 mg/dL (74-106); Potassium 4.3 mmol/L (3.5-5.1); Sodium Level 138 mmol/L (136-145)
[2017-09-29] MEDS: Ondansetron 4 MG/2 ML Vial IV (09:57)
[2017-09-29] MEDS: Amiodarone 200 MG Tablet 100 MG PO (09:58)
== END 2017-09-29 13:18 | disposition home or self-care (01) ==
PROVIDERS: Emergency Provider Emergency Medicine; Family Provider Internal Medicine; PCP Internal Medicine
DX: I48.92 Unspecified atrial flutter (principal); R00.1 Bradycardia, unspecified; I44.7 Left bundle-branch block, unspecified; E11.9 Type 2 diabetes mellitus without complications; I10 Essential (primary) hypertension; E78.00 Pure hypercholesterolemia, unspecified; I25.10 Atherosclerotic heart disease of native coronary artery without angina pectoris; Z95.1 Presence of aortocoronary bypass graft; M10.9 Gout, unspecified
CPT/HCPCS: 71045; 80048; 84484; 85025; 93005; 99152; 99285; J7030; A4216; J2405

== ENCOUNTER → 2017-10-02 11:53 | Outpatient (CLI) | payer MEDICARE, OTHER, SELFPAY | PROVIDERS: Family Provider Internal Medicine; PCP Internal Medicine; Visit Provider Internal Medicine Cardiovascular Disease | DX: I48.0 Paroxysmal atrial fibrillation (principal); I25.10 Atherosclerotic heart disease of native coronary artery without angina pectoris | CPT/HCPCS: 93005; 93306; Q9957; A4216; C8929 ==

== ENCOUNTER 2017-10-05 01:46 | Emergency (ER) | payer MEDICARE, OTHER, SELFPAY ==
[2017-10-05] VITALS (14 sets, daily range): BP systolic 123–193; BP diastolic 74–123; PULSE 64–123; RESP 14–25; TEMP 36.6; O2SAT 95–99; BMI 34.8
[2017-10-05 02:23] LABS: Absolute Lymphocyte Count 2.08 X10^3/ul (0.83-4.51); Absolute Neutrophil Count 5.7 X10^3/uL (2.0-7.7); Basophil# 0.03 X10^3/uL; Basophil% 0.3 % (0-1); Eosinophils% 1.1 % (0-5); Hematocrit 37.1 % (37-47); Hemoglobin 11.9 g/dl (12.0-15.0); Lymphocyte # 2.08 X10^3/ul (4.0); Lymphocyte % 23.8 % (19-41); Mean Corp Hgb Conc 32.1 g/gl (32-36); Mean Corpuscular Hgb 27.4 pg (27.0-32.0); Mean Corpuscular Volume 85.5 fL (81-99); Mean Platelet Vol. 10.6 fl (6.2-12.0); Monocyte% 9.2 % (0-10); Neutrophil # 5.68 X10^3/uL (2.7-7.7); Neutrophil % 65.1 % (47-70); Platelet Count 249 K/mm3 (150-450); RBC Distribution Width CV 14.7 % (11.6-14.6); RBC Distribution Width SD 44.8 fl (35.1-43.9); Red Blood Count 4.34 M/mm3 (4.2-5.4); White Blood Count 8.7 K/mm3 (4.4-11.0)
[2017-10-05] MEDS: Metoprolol Tartrate 5 MG/5 ML Vial IV ×3 (02:23→02:41)
[2017-10-05 02:24] LABS: POSITIVE COUNT NO; POSITIVE DIFFERENTIAL NO; POSITIVE MORPHOLOGY NO
[2017-10-05 02:34] LABS: Anion Gap 14 (5-15); BUN 15 mg/dL (7-18); BUN/Creat Ratio 11.5 RATIO (10-20); Calcium,Total 8.8 mg/dL (8.5-10.1); Chloride 103 mmol/L (98-107); EST Glomerular Filtration Rate 42 mL/min (>60); Est Glom Filt Rate - Afr Amer 51 mL/min (>60); Estimated Creatinine Clearance 33.13 ml/min; Glucose 225 mg/dL (74-106); Potassium 4.2 mmol/L (3.5-5.1); Sodium Level 140 mmol/L (136-145)
[2017-10-05] MEDS: Propofol 200 MG/20 ML Vial 100 MG IV BOLUS (03:22)
[2017-10-05] MEDS: Ondansetron 4 MG/2 ML Vial IV (03:36)
--- NOTE | 2017-10-05 04:40 | ED.DCSUM_ITS ---
- ER Visit Summary Date of Service: 10/05/17 Chief Complaint: Heart rate up History of Present Illness: The patient is a 76 F with a rapid heart rate and palpitations. Symptoms started around 11 PM overnight tonight. Patient has a history of atrial flutter and takes metoprolol, amiodarone, and Eliquis. She underwent synchronized cardioversion earlier this week and was told that if her symptoms recurred, she should take an extra dose of amiodarone. This did not help. Nothing seemed to bring this on or make it better. She does have some mild shortness of breath. No other associated symptoms. Physical Examination: Blood pressure 169/117 and heart rate 122. Otherwise vitals unremarkable. Patient is alert and oriented. No acute distress. Heart is tachycardic. Lungs are clear. Skin normal in color with good perfusion. Test Results: EKG showed atrial flutter at a rate of 121. Chest x-ray showed left basilar atelectasis, nothing acute. Hemoglobin 11.9, glucose 225, creatinine 1.3, troponin normal. Emergency Department Course and Treatment: Patient was seen immediately. EKG done. She was placed on a monitor and had IV access. She was hesitant to have synchronized cardioversion. According to the patient, she had hypotension and felt funny after her last cardioversion. She thinks her symptoms were related to the Cardizem and subsequent treatment with etomidate prior to cardioversion. She would like to try medical therapy first. She received metoprolol, IV, 5 mg, 3 times. She had no change in her heart rate. Patient was discussed with Dr. Grande. No further recommendations medically. He did advise synchronize cardioversion. Patient consented. Pretreated with Zofran. She received a total of 70 mg of propofol to achieve appropriate sedation. She was monitored and had stable blood pressures. She had spontaneous respirations. She was cardioverted with 150 J, synchronized. She has subsequent pause, brief bradycardia, and then went into sinus rhythm. She had occasional sinus pauses, but these resolved spontaneously. Repeat EKG showed sinus rhythm at a rate of 70. She does have some lateral T-wave changes. She had these on previous EKGs. Nothing acute. Patient is feeling much better. Blood pressures are stable. Dr. Grande had advised increasing her amiodarone to 200 mg twice a day for 3 days and then switching to 200 mg every day. The patient will follow up with Dr. Winchester later this week. Treatment Plan: As above Disposition: Discharged Impression: 1. Atrial flutter This note was generated with [employer] dictation software. It may contain incorrect words, spelling, and punctuation that were not noted in review of the chart prior to signing ED Disposition - Plan for ED Patient: Chief Complaint: Palpitations Referrals: Nia Uriostegui DO [Primary Care Provider] -
--- NOTE | 2017-10-05 04:40 | ED.DEP ---
ED Disposition - Plan for ED Patient: Chief Complaint: Palpitations Instructions: ED Paroxysmal Atrial Flutter Referrals: Jonel Winchester MD [STAFF PHYSICIAN] - Additional Instructions: Increase amiodarone to 200 mg twice a day for the next 3 days, then switch to 200 mg once a day after that. Follow-up with Dr. Winchester.
== END 2017-10-05 05:00 | disposition home or self-care (01) ==
PROVIDERS: Emergency Provider Emergency Medicine; Family Provider Internal Medicine; PCP Internal Medicine
DX: I48.92 Unspecified atrial flutter (principal); K21.9 Gastro-esophageal reflux disease without esophagitis; E11.9 Type 2 diabetes mellitus without complications; I10 Essential (primary) hypertension; E78.00 Pure hypercholesterolemia, unspecified; J44.9 Chronic obstructive pulmonary disease, unspecified; I50.9 Heart failure, unspecified; J98.11 Atelectasis
CPT/HCPCS: 71045; 80048; 84484; 85025; 93005; 96374; 96375; 99284; A4216; J2405

== ENCOUNTER 2017-11-03 10:13 | Day surgery (SDC) | payer MEDICARE, OTHER, SELFPAY ==
[2017-10-31 10:17] VITALS: BMI 75.5
--- NOTE | 2017-11-03 12:14 | PCM.OP.BLANK ---
Operative Report Date of Procedure: 11/03/17 DC cardioversion. 76-year-old lady with a history of symptomatic atrial flutter. Patient on anticoagulation. The patient was brought to the noninvasive cardiac catheterization lab. The patient was seen in consultation by Dr. Ellsworth of the critical care division. An EKG was performed which demonstrated atrial flutter with a controlled ventricular response rate. Patient has been on anticoagulation uninterrupted for at least 3 weeks. Informed consent was obtained anterior posterior pads were applied. 200 J of synchronized cardioversion energy were applied after the patient was administered 40 mg of intravenous propofol for sedation. Prompt reversal to sinus rhythm was noted. The patient tolerated the procedure well. Conclusion: Successful DC cardioversion to sinus rhythm. Continue amiodarone at the current dose Continue anticoagulation. Referred to EP service for atrial flutter ablation
--- NOTE | 2017-11-03 12:28 | PCM.OP.BLANK ---
Problem List (1) New onset atrial flutter Status: Acute (2) Atherosclerotic heart disease of [place] coronary artery without angina pectoris Status: Chronic Qualifiers: [place] vs. transplanted heart: [place] heart Qualified Code(s): I25.10 - Atherosclerotic heart disease of [place] coronary artery without angina pectoris Comment: 08/06/2004 CABG x2 VILLAGRAN side to side to second Diagonal and end to side to Anterior Descending artery in Sequential fashion. [facility]: 08/01/2004; 10/15/2011 (3) Cardiomyopathy in diseases classified elsewhere Status: Chronic (4) HLD (hyperlipidemia) Status: Chronic Qualifiers: Hyperlipidemia type: mixed hyperlipidemia Qualified Code(s): E78.2 - Mixed hyperlipidemia (5) Hypertension Status: Chronic Qualifiers: Hypertension type: essential hypertension Qualified Code(s): I10 - Essential (primary) hypertension (6) Left bundle branch block Status: Chronic (7) Obesity Status: Chronic Qualifiers: Obesity type: unspecified obesity type Obesity classification: unspecified obesity classification Serious obesity comorbidity presence: unspecified whether serious comorbidity present Qualified Code(s): E66.9 - Obesity, unspecified (8) Paroxysmal atrial fibrillation Status: Chronic (9) Presence of aortocoronary bypass graft Status: Chronic Comment: 08-06-04 CABG x2 VILLAGRAN side to side to second Diagonal and end to side to Anterior Descending artery in Sequential fashion (10) Secondary pulmonary arterial hypertension Status: Chronic Operative Report Date of Procedure: 11/03/17 - Conscious sedation CONSCIOUS SEDATION REPORT BRIEF HISTORY OF PRESENT ILLNESS: The patient is a 76-year-old female who presented to [facility] for an elective outpatient cardioversion due to underlying atrial fibrillation. The patient reports no PO intake since midnight. The patient does have a history of obstructive sleep apnea, but is not compliant with therapy. The patient reports no history of smoking and COPD. The patient denies any recent constitutional symptoms such as fevers, chills, nausea or vomiting. The patient denies previous anesthetic complications. Last known ejection fraction of 50%. Patient has had multiple cardioversions, but only has problems in the ER. Review of the the patient's chart shows Cardizem is typically given prior to cardioversion in the ER. Otherwise, no significant changes from outpatient cardioversions. Previous cardioversion did use etomidate, but EF was depressed at that time. PHYSICAL EXAMINATION: VITAL SIGNS: Reviewed and were acceptable. GENERAL: The patient is an obese female, in no apparent distress, speaking in full sentences. HEENT: Normocephalic, atraumatic. Mucous membranes are moist and pink. Good mouth opening noted. Trachea is midline. Good neck mobility. MP IV CHEST: S1, S2 irregularly irregular. No murmurs, rubs or gallops were noted. LUNGS: Clear to auscultation bilaterally without appreciable wheezes, rales or rhonchi. ABDOMEN: Soft, nontender, nondistended. Positive bowel sounds. EXTREMITIES: There is no clubbing, cyanosis or edema. ASA Class: II DESCRIPTION OF PROCEDURE: After confirmation of informed consent, the patient's anesthesia plan was reviewed in detail. Propofol was chosen. Risks and benefits were reviewed and the patient agreed to proceed. At 12:04 PM, the patient was given 40 mg of propofol. The patient achieved an appropriate level of sedation and received 1 attempt s synchronized cardioversion, at [address] Winchester at the bedside. This was successful in achieving normal sinus rhythm. The patient was monitored until 12:10 PM, at which time the patient reached their baseline mental status and function. The patient tolerated the procedure well. COMPLICATIONS: None ESTIMATED BLOOD LOSS: None RECOMMENDATIONS: Okay to recover in usual fashion. Code Visit 9xxxx: Other Procedure See Report - [id number]
--- NOTE | 2017-11-03 12:32 | OP.PCM_ITS ---
Problem List (1) New onset atrial flutter Status: Acute (2) Atherosclerotic heart disease of [place] coronary artery without angina pectoris Status: Chronic Qualifiers: [place] vs. transplanted heart: [place] heart Qualified Code(s): I25.10 - Atherosclerotic heart disease of [place] coronary artery without angina pectoris Comment: 08/06/2004 CABG x2 VILLAGRAN side to side to second Diagonal and end to side to Anterior Descending artery in Sequential fashion. [facility]: 08/01/2004; 10/15/2011 (3) Cardiomyopathy in diseases classified elsewhere Status: Chronic (4) HLD (hyperlipidemia) Status: Chronic Qualifiers: Hyperlipidemia type: mixed hyperlipidemia Qualified Code(s): E78.2 - Mixed hyperlipidemia (5) Hypertension Status: Chronic Qualifiers: Hypertension type: essential hypertension Qualified Code(s): I10 - Essential (primary) hypertension (6) Left bundle branch block Status: Chronic (7) Obesity Status: Chronic Qualifiers: Obesity type: unspecified obesity type Obesity classification: unspecified obesity classification Serious obesity comorbidity presence: unspecified whether serious comorbidity present Qualified Code(s): E66.9 - Obesity, unspecified (8) Paroxysmal atrial fibrillation Status: Chronic (9) Presence of aortocoronary bypass graft Status: Chronic Comment: 08-06-04 CABG x2 VILLAGRAN side to side to second Diagonal and end to side to Anterior Descending artery in Sequential fashion (10) Secondary pulmonary arterial hypertension Status: Chronic Operative Report Date of Procedure: 11/03/17 - Conscious sedation CONSCIOUS SEDATION REPORT BRIEF HISTORY OF PRESENT ILLNESS: The patient is a 76-year-old female who presented to [facility] for an elective outpatient cardioversion due to underlying atrial fibrillation. The patient reports no PO intake since midnight. The patient does have a history of obstructive sleep apnea, but is not compliant with therapy. The patient reports no history of smoking and COPD. The patient denies any recent constitutional symptoms such as fevers, chills, nausea or vomiting. The patient denies previous anesthetic complications. Last known ejection fraction of 50%. Patient has had multiple cardioversions, but only has problems in the ER. Review of the the patient's chart shows Cardizem is typically given prior to cardioversion in the ER. Otherwise, no significant changes from outpatient cardioversions. Previous cardioversion did use etomidate, but EF was depressed at that time. PHYSICAL EXAMINATION: VITAL SIGNS: Reviewed and were acceptable. GENERAL: The patient is an obese female, in no apparent distress, speaking in full sentences. HEENT: Normocephalic, atraumatic. Mucous membranes are moist and pink. Good mouth opening noted. Trachea is midline. Good neck mobility. MP IV CHEST: S1, S2 irregularly irregular. No murmurs, rubs or gallops were noted. LUNGS: Clear to auscultation bilaterally without appreciable wheezes, rales or rhonchi. ABDOMEN: Soft, nontender, nondistended. Positive bowel sounds. EXTREMITIES: There is no clubbing, cyanosis or edema. ASA Class: II DESCRIPTION OF PROCEDURE: After confirmation of informed consent, the patient's anesthesia plan was reviewed in detail. Propofol was chosen. Risks and benefits were reviewed and the patient agreed to proceed. At 12:04 PM, the patient was given 40 mg of propofol. The patient achieved an appropriate level of sedation and received 1 attempt s synchronized cardioversion, at [address] Winchester at the bedside. This was successful in achieving normal sinus rhythm. The patient was monitored until 12:10 PM, at which time the patient reached their baseline mental status and function. The patient tolerated the procedure well. COMPLICATIONS: None ESTIMATED BLOOD LOSS: None RECOMMENDATIONS: Okay to recover in usual fashion. Code Visit 9xxxx: Other Procedure See Report - [id number]
== END 2017-11-03 13:15 | disposition home or self-care (01) ==
LOC: CLSP 10:16
PROVIDERS: Family Provider Internal Medicine; PCP Internal Medicine; Visit Provider Internal Medicine Cardiovascular Disease
DX: I48.92 Unspecified atrial flutter (principal); I25.10 Atherosclerotic heart disease of native coronary artery without angina pectoris; I27.21 Secondary pulmonary arterial hypertension; I48.0 Paroxysmal atrial fibrillation; E78.5 Hyperlipidemia, unspecified; I10 Essential (primary) hypertension; Z95.1 Presence of aortocoronary bypass graft; E66.9 Obesity, unspecified; G47.33 Obstructive sleep apnea (adult) (pediatric); I44.7 Left bundle-branch block, unspecified; I42.9 Cardiomyopathy, unspecified
CPT/HCPCS: 92960; 93005; J7040

== ENCOUNTER → 2017-12-11 14:04 | Outpatient (CLI) | payer MEDICARE, OTHER, SELFPAY ==
--- NOTE | 2017-12-11 14:07 | ADU_ITS ---
Reason For Study: Rt groin pain/ecchymosis - Right Velocities Left Velocities RT [employer] SALES CONSULTANT - 1.2 x 1.2 cm with a velocity of 159.0 LT [employer] SALES CONSULTANT - .88 x .83 cm with a velocity of 98.2 cm/s cm/s LT CFV demonstrates normal phasic flow signal. RTCFV demonstrates mildly pulsatile, turbulent flow Pseudoaneurysm noted at level of SFA measuring 2.0 x 2.0 cm with visible neck. FV demonstrates pulsatile flow at level of pseudoaneurysm. Pseudoaneurysm noted with possible AV fistula. Procedure Exam performed in department. Interpretation Summary Right common femoral artery 1.19 x 1.15 cm Right groin 2 x 2 cm pseudoaneurysm Pulsitile flow right femoral vein at the level of the pseudoaneurysm suspicious for an arteriovenous fistula at this level. Left common femoral artery 0.88 x -.83cm and normal flow. Ordering Physician: Jonel Winchester Referring Physician: Brenna Parsons Performed By: Sanaz Sheth RVT
== END ==
PROVIDERS: Family Provider Internal Medicine; PCP Internal Medicine; Referring Provider Physician Assistant Medical; Visit Provider Physician Assistant Medical
DX: R09.89 Other specified symptoms and signs involving the circulatory and respiratory systems (principal)
CPT/HCPCS: 93925

== ENCOUNTER → 2017-12-12 12:15 | Outpatient (CLI) | payer MEDICARE, OTHER, SELFPAY ==
--- NOTE | 2017-12-12 12:59 | ADUL_ITS ---
Reason For Study: RT Groin pseudoanerysm thrombin injection Right Velocities Rt groin pseudoaneurysm successfully thrombosed s/p thrombin injection. Normal color flow and doppler signal FOOD AND BEVERAGE COORDINATOR and FV. Procedure Exam performed in department. Interpretation Summary Successful thrombosis right femoral pseudoaneurysm Ordering Physician: Je Ceron Performed By: Sanaz Sheth RVT
--- NOTE | 2017-12-12 13:59 | PCM.OPRPT ---
Problem List (1) Pseudoaneurysm following procedure Status: Acute Report of Operation Date of Procedure: 12/12/17 Pre-Operative Diagnosis: Pseudoaneurysm right femoral artery Post-Operative Diagnosis: Same Surgery/Procedure Performed:: Ultrasound-guided thrombin injection right femoral artery pseudoaneurysm Description of Surgical Findings:: Timeout and informed consent was obtained. 77-year-old female was taken to the noninvasive vascular lab. She was placed initially supine on the table and then gentle Trendelenburg position to assist her with holding up her pannus. The right groin was sterilely prepped and draped. Sterile transducer was utilized on the ultrasound probe. Sterile gel was used. Ultrasound was performed demonstrating the pseudoaneurysm in the right groin. 1% lidocaine was used as local anesthetic. A total of 2 cc was injected. I initially tried a 25-gauge needle to access the pseudoaneurysm but then converted over to a 22-gauge needle. The tip could be seen within the aneurysm with the bevel up. I utilized thrombin 1000 units/cc and I injected 0.15 cc. There was immediate thrombosis of the pseudoaneurysm. The artery and vein directly beneath were carefully inspected and noted to be nicely intact. The right foot pulses remained unchanged. The patient had absolutely no discomfort and tolerated the procedure well. She will now be observed for 2 hours. No apparent complications. Images demonstrate the initial right femoral pseudoaneurysm with successful thrombosis and complete lack of flow subsequent to the injection Je Ceron M.D., F.A.C.S. Type of Anesthesia:: Local
== END ==
PROVIDERS: Family Provider Internal Medicine; PCP Internal Medicine; Visit Provider Surgery
DX: R09.89 Other specified symptoms and signs involving the circulatory and respiratory systems (principal); I72.4 Aneurysm of artery of lower extremity
CPT/HCPCS: 93926

== ENCOUNTER → 2017-12-15 13:46 | Outpatient (CLI) | payer MEDICARE, OTHER, SELFPAY ==
--- NOTE | 2017-12-15 13:48 | ADUL_ITS ---
Reason For Study: F/U PSA thrombin injection Right Velocities RT DATABASE ADMINISTRATOR - .72 x .74 cm with a velocity of 153.0 cm/s CFV demonstrates normal color flow and slightly pulsatile doppler signal. Successfully thrombosed pseudoaneurysm now measuring 1.2 x 1.9 cm Prox SFA demonstrates turbulent flow with a velocity of 148.0 cm/s Prox FV demonstrates turbulent, pulsatile flow. Visible connection noted between Prox SFA and FV. Procedure Exam performed in department. Interpretation Summary 0.72 x 0.74 cm right common femoral artery with normal triphasic flow Persistently thrombosed right groin pseudoaneurysm measuring 1.24 x 1.93 cm Fistulous communication between the right superficial femoral artery and femoral vein now better identified. Ordering Physician: Je Ceron Performed By: Sanaz Sheth RVT
[2017-12-15 15:28] LABS: Anion Gap 9 (5-15); BUN 12 mg/dL (7-18); BUN/Creat Ratio 9.8 RATIO (10-20); Calcium,Total 8.3 mg/dL (8.5-10.1); Chloride 104 mmol/L (98-107); Creatinine, Serum 1.22 mg/dL (0.55-1.02); EST Glomerular Filtration Rate 45 mL/min (>60); Est Glom Filt Rate - Afr Amer 55 mL/min (>60); Glucose 161 mg/dL (74-106); Potassium 3.8 mmol/L (3.5-5.1); Sodium Level 139 mmol/L (136-145)
== END ==
PROVIDERS: Family Provider Internal Medicine; PCP Internal Medicine; Referring Provider Surgery
DX: E83.42 Hypomagnesemia (principal); R09.89 Other specified symptoms and signs involving the circulatory and respiratory systems; I97.89 Other postprocedural complications and disorders of the circulatory system, not elsewhere classified; I72.9 Aneurysm of unspecified site
CPT/HCPCS: 36415; 80048; 93926

== ENCOUNTER → 2018-01-06 12:25 | Outpatient (CLI) | payer MEDICARE, OTHER, SELFPAY ==
[2018-01-06 12:25] VITALS: BMI 32.3
--- NOTE | 2018-01-06 12:32 | RAD_ITS ---
STUDY: X-RAY CHEST REASON FOR EXAM: Female, 77 years old. Cough and bronchitis TECHNIQUE: PA and lateral views of the chest. COMPARISON: 10/05/2017 FINDINGS: There is hyperinflation of the lungs consistent with chronic obstructive lung disease (COPD). No acute airspace disease. Stable chronic interstitial thickening in the lung bases. There is no demonstrated pleural abnormality. Sternal cerclage wires and vascular clips are present from a prior sternotomy and coronary artery bypass graft procedure (CABG). Mild cardiomegaly. Normal mediastinum and emil. Normal visualized pulmonary arteries. Normal visualized aortic arch and descending thoracic aorta. Normal visualized thoracic spine. Normal visualized ribs, clavicles, and shoulders. There is no demonstrated abnormality of the visualized soft tissue structures of the upper abdomen. RAD/Chest PA and Lateral IMPRESSION: No acute cardiopulmonary disease Electronically Signed: Charly Almendarez DO at 11:36 EST Tel , Service support ,
--- OUTSIDE RECORDS SUMMARY | 2018-02-18 04:08 | XMS RPT_ITS | Continuity of Care Document ---
:1940 Author Organization [facility] Address [address] [place] [address] Phone Care Team Providers Name Role Phone Nia Uriostegui DO Unavailable Je Rodriguez Unavailable Dr. Christopher Alfonso Unavailable Mariely Monreal Unavailable KASIA Lopez Unavailable Unavailable Valdo Meraz Unavailable Unavailable Long Carol PEDROZA Unavailable Unavailable Sherrie Amor CNP Unavailable Unavailable Unavailable Problems Name Dates Details Actinic keratosis (L57.0, 702.0) Comments: right forearm- froze for 45 sec Status: Active Anemia (D64.9, 285.9) 26-Sep-2011 Status: Active Asthma (J45.909, 493.90) Comments: sees Dr Mackay Status: Active Asthma with acute exacerbation (J45.901, 493.92) Comments: add mucinex Status: Active Atelectasis (J98.11, 518.0) Status: Active ATRIAL FIBRILLATION (Renamed from A-fib) (I48.91, 427.31) Comments: cant do anticoagulation bc of h/o brain surgerys/p cardioversion 5times now since spring so went to [facility] for ablation Status: Active B12 deficiency (E53.8, 266.2) Status: Active 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 meningioma Status: Active Bilateral carotid artery stenosis (I65.23, 433.10) Status: Active BMI 33.0-33.9,adult (Z68.33, V85.33) Status: Active BMI 35.0-35.9,adult (Z68.35, V85.35) Status: Active Bronchitis (J40, 490) Comments: If yellow phlegm doesnt clear after antibiotic completed, call us. Status: Active Bronchitis (J40, 490) Comments: not resolving on antibiotic doxycycline Status: Active Candidiasis, unspecified (B37.9, 112.9) Status: Active Cardiac dysrhythmia (I49.9, 427.9) Status: Active Coronary artery disease (I25.10, 414.00) Comments: CABG annemarie Torres 09/25, every 6 month Status: Active Cough (R05, 786.2) 24-Aug-2010 Comments: doxy and tessalon Because of the side effects of antibiotics,use probiotics or lactobacillus acidophillus to keep the good bacteria in the gut.Increase the amount of yogurt with active cultures.Use warm water with salt gargles for sore throat.Honey lemon trena turmeric tea.Drink lots of fluidsSteam inhalation.Mucinex over the counter to loosen the mucus.Robitussin DM over the counter.Do not use decon gestants with high blood pressure or heart disease.Avoid pasta , potatoes, white flour and sweets as infection feeds on it.Lots of rest.If you have worsening fevers, shortness of breath, chest pain, co ugh, sinus pain, sore throat or difficulty swallowing, sputum or drainage that is yellow green or symptoms dont improve in a week , give us a call.2 weeks: Cough with yellow phlegm,Denies sinus pain, ea r aches, runny nose,fever, some SOBBronchtis yearlyDenies worsenisng SOB, wheze, chest painAsthma: advair , Had PNA in the pastwent in atrial fibrillation twice in the past wi th cough Status: Active Deliveries (Parity) Comments: 2 Status: Active Diabetes mellitus type II, controlled (E11.9, 250.00) Comments: other meds to cover post prandial rise arent covered-- will watch diet more closely for sugar control Status: Active Diabetic polyneuropathy associated with type 2 diabetes mellitus (E11.42, 250.60) Status: Active Encounter for screening mammogram for breast cancer (Renamed from Encounter for screening mammogram for malignant neoplasm of breast) (Z12.31, V76.12) Comments: mamogram 12/25 WNL Status: Active Gastroesophageal reflux disease without esophagitis (K21.9, 530.81) Status: Active Gout, arthritis (M10.9, 274.00) Status: Active Hammer toe of left foot (M20.42, 735.4) Status: Active Heart disease, hypertensive, malignant, 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 TG improved but still high, increse to BID.Does not take pravachol becaue of [facility] lipid and cmp in 2 monthextensively counselled on diet and exrciseprescribed gemfibrozil in 06/25, took it only fro 1 month thne stopped.Restarted gemfibrozil BID in 09/25Pravachol 40 mg and fenofibrate caused bad cramps, so cant take pravachol , took it for qu ite awhileeats lots of pasta, baked good, pop 1 canNo exercise, square dance, walk slow because knnes, back hurt Status: Active History of colon polyps (Z86.010, V12.72) Comments: Colonoscopy 06/09/12, 5 years, [id number]- adenoma- repeat in 5 years Status: Active Hypertension (I10, 401.9) Status: Active Hypertensive heart disease without heart failure (I11.9, 402.90) Status: Active Iron deficiency anemia, unspecified (D50.9, 280.9) Status: Active Irritable bowel syndrome with diarrhea (K58.0, 564.1) Comments: going back to abour Status: Active Leg swelling (M79.89, 729.81) Comments: this has been worked up - and think due to alot of sitting and venous stasis as she has noticed better since getting more active Status: Active Mixed dyslipidemia (E78.2, 272.2) Status: Active Need for prophylactic vaccination and inoculation against influenza (Z23, V04.81) Status: Active 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, 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) Comments: Dr Rivas in [place], 09/25, does MRI every year , not done this yearDid EEG :WNL per pt Status: Active Nonsmoker (Z78.9, V49.89) Status: Active Osteoarthritis (M19.90, 715.90) Status: Active Other vitamin B12 deficiency anemia (D51.8, 281.1) Status: Active Postmenopausal (Z78.0, V49.81) Status: Active Pregnancies () Comments: 2 Status: Active Prophylactic vaccination against streptococcus pneumoniae and influenza (Z23, V06.6) Status: Active screening Status: Active Type 2 diabetes mellitus, uncontrolled (E11.65, 250.02) Comments: levemir 34 unitswhen use 10 in AM and 20 HS: feels lighheaded.FBS: 179, 180s, 190, havent exercising and sick) Status: Active Unspecified asthma with (acute) exacerbation (J45.901, 493.92) Comments: still on advair, pred, antibiotic improving Status: Active Unspecified Diagnosis Status: Active Unspecified Diagnosis Status: Active Vitamin D deficiency, unspecified (E55.9, 268.9) Status: Active Medications Name Dates Details Advair Diskus 500-50 MCG/DOSE Inhalation Aerosol Powder Breath Activated 1 puff Aero Pow Br Act BID for 90 days Quantity: 3 {Box} Refills: 3 Ordered:11-Oct-2015 Balbir Cramer MD Start : 11-Oct-2015 Active Aspirin EC 81 MG Oral Tablet Delayed Release 1 qd (81 MG) Active Atorvastatin Calcium 40 MG Oral Tablet 1 Tablet qd for 0 days Quantity: 30 {Tablet} Refills: 4 Ordered:28-Apr-2017 Karen Uriostegui DO, DO, Kathleen Start : 28-Apr-2017 Active Easy Touch Test In Vitro Strip 1 (one) Strip Strip bid for 90 days Quantity: 100 {Strip} Refills: 3 Ordered:27-Aug-2017 Susie Lopez LPN Start : 27-Aug-2017 Active Eliquis 5 MG Oral Tablet 1 bid (5 MG) Active Lansoprazole 30 MG Oral Capsule Delayed Release 1 (one) Capsule Capsule daily for 90 days Quantity: 90 {Capsule} Refills: 3 Ordered:09-Jun-2017 Karen Uriostegui DO, DO, Kathleen Start : 09-Jun-2017 Active Lasix 40 MG Oral Tablet 1 (one) Tablet bid for 90 days Quantity: 90 {Tablet} Refills: 1 Ordered:12-Feb-2017 Karen Uriostegui DO, DO, Kathleen Start : 12-Feb-2017 Active Levaquin 500 MG Oral Tablet 1 (one) Tablet daily for 10 days Quantity: 10 {Tablet} Refills: 0 Ordered:06-Jan-2018 Sherrie Amor CNP Start : 06-Jan-2018 Active Levemir FlexTouch 100 UNIT/ML Subcutaneous Solution Pen-injector 20 units HS for 30 days Quantity: 1 {Syringe} Refills: 3 Ordered:07-Jan-2018 Karen Uriostegui DO, DO, Kathleen Start : 07-Jan-2018 Active Comments:new dose Magnesium Oxide 400 MG Oral Capsule 1 qd (400 MG) Active MetFORMIN HCl ER 500 MG Oral Tablet Extended Release 24 Hour 2 (two) Tablet ER 24HR bid for 90 days Quantity: 360 {Tablet} Refills: 3 Ordered:15-May-2017 Karen Uriostegui DO, DO, Kathleen Start : 15-May-2017 Active METHSCOPOLAMINE BROMIDE, 5MG (Oral Tablet) 1 (one) Tablet bid for 30 days Quantity: 60 {Tablet} Refills: 0 Ordered:16-Dec-2012 Maylin Melendez DO Start : 16-Dec-2012 Active Comments:naty Montelukast Sodium 10 MG Oral Tablet 1 Tablet qd for 90 days Quantity: 90 {Tablet} Refills: 1 Ordered:27-Aug-2017 Susie Lopez LPN Start : 27-Aug-2017 Active Neurontin 100 MG Oral Capsule 2 (two) Milligram bid for 30 days Refills: 0 Ordered:29-Nov-2016 Karen Uriostegui DO, DO, Kathleen Start : 29-Nov-2016 Active Nitrostat 0.4 MG Sublingual Tablet Sublingual 1 (one) Tab Sublingual prn for 90 days Quantity: 30 {Tablet} Refills: 3 Ordered:31-Jul-2016 Susie Lopez LPN Start : 31-Jul-2016 Active NovoFine 32G X 6 MM Miscellaneous 1 (one) Misc Misc uad for 0 days Quantity: 60 {Each} Refills: 3 Ordered:31-Jul-2016 Susie Lopez LPN Start : 31-Jul-2016 Active Pen Blossom 5/16 31G X 8 MM Miscellaneous 1 (one) Misc Misc uad, 10 units in AM for 90 days Quantity: 100 {Each} Refills: 6 Ordered:13-Nov-2017 Karen Uriostegui DO, DO, Kathleen Start : 13-Nov-2017 Active Potassium Chloride Elise ER 20 MEQ Oral Tablet Extended Release 1 qd (20 MEQ) Active PredniSONE 10 MG Oral Tablet 1 (one) Tablet 1 bid x 3 days, 1 daily x3 days, 1/2 daily x 3 d for 0 days Quantity: 12 {Tablet} Refills: 0 Ordered:07-Jan-2018 Sherrie Amor CNP Start : 07-Jan-2018 Active Comments:with food ProAir HFA 108 (90 Base) MCG/ACT Inhalation Aerosol Solution 1 (one) Aerosol Soln q 4hrs, prn for 90 days Quantity: 3 {Box} Refills: 3 Ordered:30-Dec-2017 Sherrie Amor CNP Start : 30-Dec-2017 Active Tessalon Perles 100 MG Oral Capsule 1 (one) Capsule two times daily, as needed for 10 days Quantity: 30 {Capsule} Refills: 0 Ordered:30-Dec-2017 Sherrie Amor CNP Start : 30-Dec-2017 Active Comments:Medication taken as needed. 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[employer], Carol L Start : 05-Jul-2015 Active ALBUTEROL, 90MCG/ACT (Inhalation Aerosol Solution) 2 puffs Aerosol Soln QID PRN for 0 days Quantity: 1 {Aerosol_Soln} Refills: 3 Ordered:24-Jul-2007 Monik Rushing Start : 24-Jul-2007 End : 20-Oct-2007 Inactive Amiodarone HCl 200 MG Oral Tablet 1/2 daily (200 MG) Inactive ASPIRIN EC, 325MG (Oral Tablet Delayed Release) qd (325 MG) Inactive ASPIRIN, 81MG (Oral Tablet) 1 tab Tablet qd for 0 days Refills: 0 Ordered:14-Jan-2014 ULYSSES Quiñones End : 14-Jan-2014 Inactive YOLETTE CONTOUR TEST (In Vitro Strip) uad Strip bid for 0 days Quantity: 100 {Strip} Refills: 3 Ordered:14-Jan-2014 StephenULYSSES Start : 18-Aug-2013 End : 14-Jan-2014 Inactive BIAXIN, 500MG (Oral Tablet) 2 (two) Tablet Daily for 10 days Quantity: 20 {Tablet} Refills: 0 Ordered:29-Dec-2006 Monik Rushing Start : 29-Dec-2006 End : 19-Feb-2007 Inactive CRESTOR, 10MG (Oral Tablet) 1 (one) Tablet qd for 0 days Quantity: 30 {Tablet} Refills: 3 Ordered:01-Nov-2009 Carol Reina LPN Start : 05-Jun-2009 Inactive Doxycycline Hyclate 100 MG Oral Capsule 1 (one) Capsule bid for 7 days Quantity: 14 {Capsule} Refills: 0 Ordered:30-Dec-2017 Sherrie Amor CNP Start : 30-Dec-2017 End : 06-Jan-2018 Inactive Ferrous Sulfate 325 (65 Fe) MG Oral Tablet Delayed Release [address] bid for 0 days Quantity: 60 {Tablet} Refills: 3 Ordered:27-Feb-2016 Carol Reina LPN Start : 17-Jan-2014 End : 27-Feb-2016 Inactive Gemfibrozil 600 MG Oral Tablet 1 (one) Tablet Tablet bid for 90 days Quantity: 180 {Tablet} Refills: 1 Ordered:07-Nov-2016 Susie Lopez LPN Start : 31-Jul-2016 End : 07-Nov-2016 Inactive Gemfibrozil 600 MG Oral Tablet 1 (one) Tablet Tablet bid for 0 days Refills: 0 Ordered:07-Nov-2016 Susie Lopez LPN Start : 31-Jul-2016 End : 07-Nov-2016 Inactive KETOROLAC TROMETHAMINE, 0.4% (Ophthalmic Solution) uad after eye surgery (0.4 %) Inactive LANSOPRAZOLE, 30MG (Oral Capsule Delayed Release) 1 cap qd (30 MG) Inactive LEVAQUIN, 500MG (Oral Tablet) 1 (one) Tablet qd for 0 days Quantity: 10 {Tablet} Refills: 0 Ordered:17-Apr-2012 Natalya Kohli Start : 27-Mar-2012 End : 17-Apr-2012 Inactive LevETIRAcetam 500 MG Oral Tablet 1 tab bid for 0 days Refills: 0 Ordered:16-Jan-2016 Molly Tracy End : 16-Jan-2016 Inactive MECLIZINE HCL, 12.5MG (Oral Tablet) 1 Tablet tid prn for 0 days Quantity: 60 {Tablet} Refills: 0 Ordered:14-Jan-2014 ULYSSES Quiñones Start : 16-Dec-2012 End : 14-Jan-2014 Inactive MECLIZINE HCL, 25MG (Oral Tablet) 1 Tablet QID/PRN for 0 days Quantity: 30 {Tablet} Refills: 0 Ordered:10-May-2008 Natalya Kohli Start : 20-Aug-2007 End : 10-May-2008 Inactive Comments:inner ear MEDROL (PIPER), 4MG (Oral Tablet) 1 (one) Tablet Tablet TAD for 0 days Quantity: 1 {Package} Refills: 0 Ordered:09-Jul-2013 AntelmoTracy álvarez Start : 21-Jun-2013 End : 09-Jul-2013 Inactive Metoprolol Tartrate 25 MG Oral Tablet one Tablet BID for 30 days Quantity: 30 {Tablet} Refills: 0 Ordered:28-May-2017 Karen Uriostegui DO, DO, Kathleen Start : 28-May-2017 End : 27-Jun-2017 Inactive Comments:dr gay CAMILO, 7.5MG (Oral Tablet) 1 (one) Tablet bid with food for 0 days Quantity: 60 {Tablet} Refills: 0 Ordered:24-Jul-2007 Natalya Kohli Start : 24-Jul-2007 End : 10-May-2008 Inactive Multi-Vitamin Oral Tablet 1 tab qd for 0 days Refills: 0 Ordered:27-Feb-2016 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 [employer]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 [employer], Carol L End : 27-Feb-2016 Inactive NASONEX, 50MCG/ACT (Nasal Suspension) 1-2 squirts Suspension daily for 0 days Quantity: 1 {Unspecified} Refills: 0 Ordered:14-Jan-2014 ULYSSES Quiñones Start : 05-May-2013 End : 14-Jan-2014 Inactive Potassium Chloride ER 20 MEQ Oral Tablet Extended Release 1 (one) Tablet ER Tablet ER daily for 0 days Quantity: 60 {Tablet} Refills: 0 Ordered:27-Feb-2016 Carol Reina LPN Start : 29-Jun-2014 End : 27-Feb-2016 Inactive Comments:Only take while on lasix twice daily Pravachol 40 MG Oral Tablet 1 (one) Tablet(s) q hs for 90 days Quantity: 90 {Tablet} Refills: 0 Ordered:27-Feb-2016 Carol Reina LPN Start : 03-Apr-2015 End : 27-Feb-2016 Inactive PRAVASTATIN SODIUM, 40MG (Oral Tablet) 1 (one) Tablet Q hs for 90 days Quantity: 90 {Tablet} Refills: 3 Ordered:24-Sep-2011 Natalya Kohli Start : 17-Sep-2011 End : 24-Sep-2011 Inactive PREDNISOLONE ACETATE, 1% (Ophthalmic Suspension) uad after eye surgery (1 %) Inactive PredniSONE 10 MG Oral Tablet 3 (three) Tablet daily for 10 days Quantity: 20 {Tablet} Refills: 0 Ordered:27-Aug-2017 Karen Uriostegui DO, DO, Kathleen Start : 27-Aug-2017 End : 06-Sep-2017 Inactive Comments:20 mg BID 2 days,10 mg BID 4 days10 mg Qd 4 days then stop.20 pills PREDNISONE, 20MG (Oral Tablet) 1 Tablet 1bid x 3 days then daily x 3 days then 1/2 pill daily x 3 days s for 0 days Quantity: 12 {Tablet} Refills: 0 Ordered:22-Feb-2014 Tracy Barnes Start : 31-Jan-2014 End : 22-Feb-2014 Inactive Comments:with food PREVACID, 30MG (Oral Capsule Delayed Release) [address] qd for 0 days Quantity: 90 {Capsule_DR} Refills: 3 Ordered:27-Mar-2012 Susie Lopez LPN Start : 14-May-2011 End : 27-Mar-2012 Inactive Comments:DION< DION< DION< DION No generic PROVENTIL HFA, 108 (90 Base)MCG/ACT (Inhalation Aerosol Solution) 2 puffs Aerosol Soln qid, prn for 30 days Quantity: 1 {Aerosol_Soln} Refills: 3 Ordered:02-Nov-2012 Roberto Muhammad LPNsie Start : 17-Sep-2011 End : 02-Nov-2012 Inactive SINGULAIR, 10MG (Oral Tablet) 1 (one) Tablet daily for 90 days Quantity: 90 {Tablet} Refills: 3 Ordered:27-Mar-2012 Susie Lopez LPN Start : 14-May-2011 End : 27-Mar-2012 Inactive Tessalon Perles 100 MG Oral Capsule 1-2 Capsule TID as needed for cough for 7 days Quantity: 40 {Capsule} Refills: 0 Ordered:16-Jan-2016 Balbir Cramer MD Start : 16-Jan-2016 End : 23-Jan-2016 Inactive Comments:Medication taken as needed. TYLENOL WITH CODEINE #3, 300-30MG (Oral Tablet) 1 Tablet qhs for 6 days Refills: 0 Ordered:17-Apr-2012 Natalya Kohli Start : 27-Mar-2012 End : 17-Apr-2012 Inactive Valsartan 320 MG Oral Tablet 1 qd (320 MG) Inactive Valsartan-Hydrochlorothiazide 320-25 MG Oral Tablet 1 Tablet qd for 90 days Quantity: 90 {Tablet} Refills: 1 Ordered:07-Nov-2016 Susie Lopez LPN Start : 10-Jul-2016 End : 07-Nov-2016 Inactive VITAMIN D (ERGOCALCIFEROL), 45352YWGN (Oral Capsule) 1 cap once a week (17001 UNIT) Inactive Vitamin D3 49347 UNIT Oral Tablet 1 (one) Tablet weekly for 90 days Refills: 3 Ordered:17-Jan-2016 Ramona Vásquez Start : 16-Jan-2016 End : 17-Jan-2016 Inactive VITAMIN D3, 2000UNIT (Oral Capsule) 2 caps qd (2000 UNIT) Inactive ADVAIR DISKUS, 250-50MCG/DOSE (Inhalation Miscellaneous) 1 (one) Misc bid for 0 days Quantity: 1 {Misc} Refills: 3 Ordered:26-Sep-2006 Monik Rushing Start : 26-Sep-2006 End : 26-Sep-2006 Discontinued ADVAIR DISKUS, 500-50MCG/DOSE (Inhalation Miscellaneous) 1 Misc BID for 90 days Quantity: 90 {Misc} Refills: 3 Ordered:05-Jun-2009 Long Carol PEDROZA Start : 05-Jun-2009 End : 01-Nov-2009 Discontinued Comments:This order discontinued per [facility]. AMLODIPINE BESYLATE, 5MG (Oral Tablet) 1 Tablet qd for 0 days Quantity: 30 {Tablet} Refills: 3 Ordered:18-Dec-2012 Al Maylin MCFARLAND A Start : 18-Dec-2012 End : 18-Dec-2012 Discontinued Atenolol 100 MG Oral Tablet 1 tab Tablet qd for 90 days Quantity: 180 {Tablet} Refills: 3 Ordered:29-Nov-2016 Moody MCFARLAND Nia Jones DO Start : 29-Nov-2016 End : 29-Nov-2016 Discontinued Comments:per cardio AVALIDE, 300-25MG (Oral Tablet) 1 (one) Tablet Daily for 0 days Quantity: 90 {Tablet} Refills: 3 Ordered:16-Oct-2005 СергейMonik Start : 16-Oct-2005 End : 15-Aug-2006 Discontinued AVALIDE, 300-25MG (Oral Tablet) 1 tab Tablet qd for 0 days Quantity: 90 {Tablet} Refills: 3 Ordered:02-Aug-2008 Maylin MCFARLAND A Start : 02-Aug-2008 End : 02-Aug-2008 Discontinued Cardizem CD 240 MG Oral Capsule Extended Release 24 Hour 1 (one) Capsule qd for 180 days Refills: 0 Ordered:28-May-2017 Sonja Salcido Start : 29-Nov-2016 End : 28-May-2017 Discontinued Comments:new dose and per cardio CARDIZEM, 90MG (Oral Tablet) 2 (two) Tablet qd at bedtime for 30 days Quantity: 30 {Tablet} Refills: 0 Ordered:18-Dec-2012 Maylin Melendez DO A Start : 18-Dec-2012 End : 05-May-2013 Discontinued Comments:This order discontinued per [facility]. CRESTOR, 20MG (Oral Tablet) 11/2 Tablet qd for 0 days Quantity: 135 {Tablet} Refills: 4 Ordered:01-Nov-2009 Layton Melendez DOa A Start : 01-Nov-2009 End : 01-Nov-2009 Discontinued DARVOCET-N 100, 100-650MG (Oral Tablet) 1 (one) Tablet q 6 hours prn for 0 days Quantity: 60 {Tablet} Refills: 0 Ordered:20-Apr-2010 Adriane Muhammad LPN Start : 23-Dec-2008 End : 24-Dec-2011 Discontinued Comments:This order discontinued per [facility]. DIOVAN HCT, 320-25MG (Oral Tablet) 1 (one) Tablet qd for 90 days Quantity: 90 {Tablet} Refills: 3 Ordered:17-Apr-2012 Maylin MCFARLAND A Start : 17-Apr-2012 End : 17-Apr-2012 Discontinued ERGOCALCIFEROL, 39522PSQD (Oral Capsule) 1 (one) Capsule q week for 0 days Quantity: 12 {Capsule} Refills: 1 Ordered:31-Aug-2012 Layton MCFARLANDa A Start : 31-Aug-2012 End : 31-Aug-2012 Discontinued FLOVENT, 220MCG/ACT (Inhalation Aerosol) 2 puffs Aerosol bid for 0 days Quantity: 3 {Aerosol} Refills: 3 Ordered:26-Sep-2006 Monik Rushing Start : 26-Sep-2006 End : 03-Apr-2007 Discontinued FLUCONAZOLE, 150MG (Oral Tablet) 1 (one) Tablet qd for 0 days Quantity: 3 {Tablet} Refills: 0 Ordered:30-Dec-2014 Natalya Kohli Start : 21-Oct-2014 End : 30-Dec-2014 Discontinued GLUCOVANCE, 2.5-500MG (Oral Tablet) 2 (two) Tablet Twice daily for 90 days Quantity: 360 {Tablet} Refills: 3 Ordered:02-Mar-2014 Maylin MCFARLAND A Start : 02-Mar-2014 End : 02-Mar-2014 Discontinued GUAIATUSSIN AC, 100-10MG/5ML (Oral Syrup) 1-2 Teaspoon(s) q 6 hours for 0 days Quantity: 4 {Teaspoon(s)} Refills: 0 Ordered:25-Jun-2006 Monik Rushing Start : 25-Jun-2006 End : 15-Aug-2006 Discontinued INVOKAMET, 50/1000MG (Oral Tablet) (Free Text) 1 (one) Tablet bid for 0 days Quantity: 30 {Tablet} Refills: 0 Ordered:21-Oct-2014 Maylin A Start : 21-Oct-2014 End : 21-Oct-2014 Discontinued Lansoprazole 30 MG Oral Capsule Delayed Release [address] QD for 90 days Quantity: 90 {Capsule} Refills: 3 Ordered:28-May-2017 Sonja Salcido Start : 24-Apr-2016 End : 28-May-2017 Discontinued LANTUS SOLOSTAR, 100UNIT/ML (Subcutaneous Solution Pen-injector) 30 Soln Pen-inj units once a day for 0 days Quantity: 3 {Unspecified} Refills: 3 Ordered:03-Apr-2015 Fast Maylin MCFARLAND Start : 03-Apr-2015 End : 03-Apr-2015 Discontinued Metoprolol Succinate ER 100 MG Oral Tablet Extended Release 24 Hour 1 tab Tablet ER 24HR qd for 0 days Quantity: 90 {Tablet_ER_24HR} Refills: 3 Ordered:28-May-2017 Sonja Salcido Start : 29-Nov-2016 End : 28-May-2017 Discontinued MIRALAX (Oral Packet) 1 (one) Packet take 1 pkt with 6-8 oz water or juice daily for 0 days Quantity: 10 {Packet} Refills: 0 Ordered:17-Sep-2011 Natalya Kohli Start : 17-Sep-2011 End : 17-Sep-2011 Discontinued NEURONTIN, 300MG (Oral Capsule) 1 (one) Capsule two times daily for 360 days Refills: 0 Ordered:17-Jan-2014 Taylapily RUSTYSherrie Start : 17-Jan-2014 End : 17-Jan-2014 Discontinued NIACIN FLUSH FREE, 500MG (Oral Capsule) 2 (two) Capsule qhs / HS for 0 days Refills: 0 Ordered:03-Apr-2007 Monik Rushing Start : 03-Apr-2007 End : 24-Jul-2007 Discontinued NIASPAN, 500MG (PO Tablet Extended Release) 1 tab q hs (500 MG) End : 11-Feb-2006 Discontinued NITROQUICK, 0.3MG (SL SL Tab) 1 tab Tab Sublingual prn for 0 days Quantity: 30 {Tab_Sublingual} Refills: 1 Ordered:15-Aug-2006 ULYSSES Quiñones Start : 15-Aug-2006 End : 14-Jan-2014 Discontinued Comments:This order discontinued per [facility]. NORVASC, 5MG (Oral Tablet) 1 Tablet qd for 0 days Quantity: 30 {Tablet} Refills: 3 Ordered:17-Jan-2012 Maylin Melendez DO Start : 17-Jan-2012 End : 17-Jan-2012 Discontinued ONE TOUCH DELICA LANCETS (Miscellaneous) uad Misc bid for 90 days Quantity: 200 {Misc} Refills: 3 Ordered:18-Dec-2012 Natalya Kohli Start : 20-Apr-2010 End : 23-Dec-2014 Discontinued Comments:This order discontinued per [facility]. ONETOUCH TEST (In Vitro Strip) uad Other - NOS bid for 90 days Quantity: 200 {Strip} Refills: 3 Ordered:18-Dec-2012 Natalya Kohli Start : 20-Apr-2010 End : 23-Dec-2014 Discontinued Comments:This order discontinued per [facility]. ONETOUCH ULTRA BLUE (In Vitro Strip) 1 (one) Strip UAD for 0 days Quantity: 100 {Strip} Refills: 3 Ordered:23-Dec-2014 Natalya Kohli Start : 23-Dec-2014 End : 23-Dec-2014 Discontinued ONGLYZA, 5MG (Oral Tablet) 1 Tablet qd for 90 days Quantity: 90 {Tablet} Refills: 3 Ordered:17-Jan-2012 Maylin Melendez DO Start : 17-Jan-2012 End : 17-Jan-2012 Discontinued TOPROL XL, 100MG (Oral Tablet Extended Release 24 Hour) 1 tab Tablet ER 24HR qd for 0 days Quantity: 90 {Tablet_ER_24HR} Refills: 3 Ordered:11-Feb-2006 Monik Rushing Start : 11-Feb-2006 End : 03-Apr-2007 Discontinued Comments:gets generic TRICOR, 145MG (Oral Tablet) 1 tab Tablet qd for 0 days Quantity: 90 {Tablet} Refills: 3 Ordered:14-May-2011 Natalya Kohli Start : 14-May-2011 End : 14-May-2011 Discontinued TRILIPIX, 135MG (Oral Capsule Delayed Release) [address] qd for 0 days Quantity: 30 {Capsule} Refills: 3 Ordered:22-May-2015 Maylin Melendez DO Start : 22-May-2015 End : 22-May-2015 Discontinued Victoza 18 MG/3ML Subcutaneous Solution Pen-injector tad Soln Pen-inj qd for 0 days Quantity: 1 {Box} Refills: 0 Ordered:29-Nov-2016 Karen Uriostegui DO, DO, Kathleen Start : 29-Nov-2016 End : 29-Nov-2016 Discontinued Comments:0.6 sc qd for one week then1.2 sc qd for one week then 1.8 sc qdpt will switch to her estephanie VITAMIN D (ERGOCALCIFEROL), [id number] (Oral Capsule) 1 Capsule twice a week for 0 days Quantity: 24 {Capsule} Refills: 1 Ordered:17-Sep-2011 Natalya Kohli Start : 17-Sep-2011 End : 17-Sep-2011 Discontinued ZITHROMAX Z-PIPER, 250MG (Oral Tablet) 1 Tablet TAD for 0 days Quantity: 1 {Package(s)} Refills: 0 Ordered:02-Mar-2014 Natalya Kohli Start : 22-Feb-2014 End : 02-Mar-2014 Discontinued Allergies and Adverse Reactions Name Dates Details Levemir FlexPen *ANTIDIABETICS* Reaction: Dizziness (Allergy) Status: Inactive Comments: and just felt bad all over No Known Allergies (Allergy) Onset: 05-Oct-2014 Status: Inactive No Known Drug Allergies (Allergy) Onset: 05-Oct-2014 Status: Inactive Trilipix *ANTIHYPERLIPIDEMICS* Status: Active (Allergy) Comments: myalgia Past Medical History Name Dates Details Abdominal pain, unspecified abdominal location (789.00) Comments: lower mid ab d Status: Resolved as of 03-Oct-2008 Abnormal findings on diagnostic imaging of spine (R93.7, 793.7) Comments: fracture seen on dexa Status: Inactive as of 15-Dec-2017 Abnormal mammogram (R92.8, 793.80) Status: Inactive as of 03-Aug-2008 Actinic keratosis (L57.0, 702.0) Comments: cryo x 2 right cheek Status: Inactive as of 15-Dec-2017 Acute idiopathic gout involving toe of left foot (M10.072, 274.01) Status: Inactive as of 15-Dec-2017 Allergic rhinitis due to other allergen (J30.89, 477.8) Status: Inactive as of 28-Apr-2017 Benign paroxysmal positional vertigo (H81.10, 386.11) Comments: improving Status: Inactive as of 15-Dec-2017 BMI 32.0-32.9,adult (Z68.32, V85.32) Status: Inactive as of 28-Apr-2017 BMI 34.0-34.9,adult (Z68.34, V85.34) Status: Inactive as of 28-Apr-2017 BMI 34.0-34.9,adult (Z68.34, V85.34) Status: Inactive as of 15-Dec-2017 Bronchitis, acute (J20.9, 466.0) Status: Resolved as of 02-Mar-2014 Chronic obstructive asthma, with status asthmaticus (493.21) Status: Resolved as of 28-Jun-2008 Constipation (K59.00, 564.00) Status: Resolved as of 03-Oct-2008 Diarrhea (R19.7, 787.91) Status: Resolved as of 01-Nov-2009 Diverticulitis (K57.92, 562.11) Status: Resolved as of 01-Nov-2009 Encounter for Medicare annual wellness exam (Z00.00, V70.0) Status: Inactive as of 14-Jan-2014 Encounter for screening for malignant neoplasm of cervix (Z12.4, V76.2) Status: Inactive as of 02-Mar-2014 Eustachian tube dysfunction (H69.80, 381.81) Status: Inactive as of 14-Jan-2014 Foot pain (M79.673, 729.5) Comments: Rt foot stress fracture versus fasciitis Status: Inactive as of 14-Jan-2014 Headache (R51, 784.0) Status: Resolved as of 11-Aug-2008 Knee pain (M25.569, 719.46) Status: Inactive as of 15-Dec-2017 Laryngitis (J04.0, 464.00) Status: Resolved as of 14-Jan-2011 Lung nodule (R91.1, 518.89) Comments: resolved on last cxr - seeing dr mackay Status: Resolved as of 15-Dec-2017 Nausea & vomiting (R11.2, 787.01) Status: Resolved as of 03-Oct-2008 near syncope Status: Resolved as of 27-Jun-2008 Neoplasm of uncertain behavior of skin (D48.5, 238.2) Comments: excise skin lesion sent for pathology Status: Inactive as of 14-Jan-2014 Other premature beats (I49.49, 427.69) Comments: seems better heart workup ok Status: Inactive as of 15-Dec-2017 Other symptoms involving cardiovascular system (R09.89, 785.9) Status: Inactive as of 15-Dec-2017 Pain in joint involving ankle and foot, unspecified laterality (M25.579, 719.47) Status: Inactive as of 14-Jan-2014 [place] Comments: remove Status: Inactive as of 14-Jan-2014 postmenopausal without estrogen Status: Inactive as of 14-Jan-2014 postmenopausal without estrogen Status: Inactive as of 15-Dec-2017 screen Status: Inactive as of 14-Nov-2009 screening Status: Inactive as of 12-Jan-2013 screening Status: Inactive as of 12-Jan-2013 screening Status: Inactive as of 14-Jan-2014 SOB (R06.02, 786.05) 03-Aug-2010 Comments: had cardio workup - thnk lung related so will get her back to [facility] Status: Inactive as of 24-Apr-2016 Unspecified Diagnosis Status: Inactive as of 12-Jan-2013 Unspecified Diagnosis Status: Inactive as of 02-Mar-2014 vertigo-- positional-- gave bpv exercises -- may use meclizine prn Status: Resolved as of 28-Jun-2008 vit d deficiency Status: Inactive as of 03-Aug-2008 well female - pap pelvic and bimanual performed Status: Inactive as of 05-Jul-2008 Wheezing (R06.2, 786.07) Status: Resolved as of 02-Mar-2014 Procedures Procedure Dates Details Bone Density Study Completed Comments: 03-18-01 cataract left eye 2016 Completed cataract right eye 2015 Completed Last Pap Smear, Date Completed Comments: 11-30-02 Mammogram Completed Comments: 01-12-04 Date Value Details 06-Jan-2018 Chest PA and Lateral Result: Comments: See Note; NOTES: [facility] Imaging Services [address] [place] [address] Chest PA and Lateral MR#: [id number] Acct: [id number] Name: COMFORT OLSON Rep #: [id number] : 1940 F 77 From: Charly Almendarez DO PCP: Nia Uriostegui DO Status: REG CLI Study: Chest PA and Lateral Date of Exam: 01/06/18 Exam# [id number] Ordering Dr: Sherrie Amor WEIGHT TESTER-Kathleen STUDY: X-RAY CHEST R LUDY FOR EXAM: Female, 77 years old. Cough and bronchitis TECHNIQUE: PA and lateral views of the chest. COMPARISON: 10/05/2017 FINDINGS: There is hyperinflation o f the lungs consistent with chronic obstructive lung disease (COPD). No acute airspace disease. Stable chronic interstitial thickening in the lung bases. There is no demonstrated pleural abnormality. S ternal cerclage wires and vascular clips are present from a prior sternotomy and coronary artery bypass graft procedure (CABG). Mild cardiomegaly. Normal mediastinum and emil. Normal visualized pulmonar y arteries. Normal visualized aortic arch and descending thoracic aorta. Normal visualized thoracic spine. Normal visualized ribs, clavicles, and shoulders. There is no demonstrated abnormality of the visualized soft tissue structures of the upper abdomen. RAD/Chest PA and Lateral IMPRESSION: No acute cardiopulmonary disease Electronically Si gned: Charly Almendarez DO at 11:36 EST Tel , Service support , CC: Sherrie Amor NP; Nia Uriostegui DO Cooker Cleaner: Signed 19-Dec-2017 Surgery Visit Report Result: Comments: See Note; NOTES: [facility] [address] [place] [address]. [address] [place] [address] OFFICE VISIT Date of Service: 12/19/17 MR#: [id number] Acct: [id number] Name: COMFORT OLSON Rep #: [id number] : 1940 Provider: Je Ceron MD Age/Sex: 77/F Location: [facility] Status: Signed Intake Intake Visit Reasons: F/U 12/12 Thrombin Injection Chief Complaint: Follow up All ergies No Known Allergies Allergy (Verified 12/12/17 09:14) Medications Albuterol IH (ProAir) [Proair Hfa (SP)Vent Pts] 2 puff INHALATION Q4H PRN PRN 08/24/17 [History Confirmed 12/12/17] Atorvasta tin Calcium [Lipitor] 40 mg PO QHS 08/24/17 [History Confirmed 12/12/17] Cholecalciferol (Vitamin D3) [Vitamin D3] 6,000 unit PO DAILY 08/24/17 [History Confirmed 12/12/17] Fluticasone/Salmeterol [Advai r 250/50 Mcg Diskus] 1 puff INHALATION BID 08/24/17 [History Confirmed 12/12/17] Furosemide 40 mg PO QHS 08/24/17 [History Confirmed 12/12/17] Gabapentin [Neurontin] 100 mg PO BIDCM 08/24/17 [History Co nfirmed 12/12/17] Insulin Detemir [Levemir] 19 unit SQ QHS 08/24/17 [History Confirmed 12/12/17] Lansoprazole [Prevacid] 30 mg PO DAILY 08/24/17 [History Confirmed 12/12/17] Linagliptin [Tradjenta] 5 mg PO DAILY 08/24/17 [History Confirmed 12/12/17] Metformin HCl 1,000 mg PO BID 08/24/17 [History Confirmed 12/12/17] Methscopolamine [place] 5 mg PO BID 08/24/17 [History Confirmed 12/12/17] Montelukast [Singulair] 10 mg PO DAILY 08/24/17 [History Confirmed 12/12/17] Nitroglycerin [Nitrostat] 0.4 mg SUBLINGUAL Q5M PRN 08/24/17 [History Confirmed 12/12/17] Potassium Chloride [Klor-Con] 20 meq PO DAILY 0 08/24/17 [History Confirmed 12/12/17] apixaban 5 mg tablet 5 mg PO BID #180 tab 09/25/17 [Rx Confirmed 12/12/17] magnesium oxide 400 mg (241.3 mg magnesium) tablet 400 mg PO QDAY tab 09/25/17 [History Co nfirmed 12/12/17] PFSH Medical History Pseudoaneurysm following procedure (Acute) Bruit (arterial) (Acute) Injury of femoral artery (Acute) Left bundle branch block (Chronic) New onset atrial flutte r (Acute 09/29/17) 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) Cardiomyopathy in diseases classified elsewhere (Chronic) Paroxysmal atrial f ibrillation (Chronic) Atherosclerotic heart disease of [place] coronary artery without angina pectoris (Chronic) HLD (hyperlipidemia) (Chronic) Hypertension (Chronic) Obesity (Chronic) Non-ST elevation m yocardial infarction (NSTEMI) due to mismatch of myocardial oxygen supply and demand (Chronic) Asthma (Chronic) Benign paroxysmal positional vertigo (Chronic) Gout (Chronic) Meningioma (Chronic) Other c erebral infarction (Chronic) Partial symptomatic epilepsy with complex partial seizures, intractable, with status epilepticus (Chronic) Type 2 diabetes mellitus (Chronic) History of hysterectomy (Resolv ed) Atrial enlargement, left (Inactive) Surgical History History of radiofrequency ablation procedure for cardiac arrhythmia (Resolved 12/04/17) Presence of aortocoronary bypass graft (Chronic) Histo ry of cardioversion (Acute 09/29/17) History of colonoscopy (Acute) history of cardiac ablation (Acute 11/2017) H/O craniotomy (Resolved 2008) History of ankle surgery (Resolved) History of left heart catheterization (LHC) (Resolved 11/25/16) History of tonsillectomy (Resolved) Family History Father CAD (coronary artery disease) Hypertension Cancer skin Mother CAD (coronary artery disease) Hyperte nsion Diabetes Brother CAD (coronary artery disease) Sister CAD (coronary artery disease) Myocardial infarction Social History Smoking Status: Never smoker alcohol intake: never substance use type: do es not use diet: diabetic caffeine: Yes Type: tea, carbonated beverages what type of physical activity do you participate in: none seatbelt use: always do you feel safe at home: Yes HPI HPI HPI: VIVI OLSON, is a 77 F who presents to the office today for surgical follow-up regarding treatment of a right femoral post cardiac catheterization pseudoaneurysm as well as an additional AV fistula at the [facility] site. On December 12, 2017 at the [facility] I performed a ultrasound-guided thrombin injection of the right femoral artery pseudoaneurysm. This was nicely successful. On December 15, 2017 I repeated the duplex ultrasound. The pseudoaneurysm at 1.2 x 1.9 cm remains thrombosed. Unfortunately with the pseudoaneurysm now thrombosed it highlights the fact that a secondary problem that oc curred at the cardiac catheterization includes a AV fistula with pulsatile flow noted in the proximal right femoral vein. Exam Extrem Other: Slowly resolving ecchymosis right groin right lateral hi p right medial thigh. Right groin has still a residual palpable pseudoaneurysm. It is not expansile. The right popliteal pulses 3+. Inspection reveals slight pitting edema bilateral lower extremities s lightly more notable on the right than the left. Assessment AND Plan Problems 1. Pseudoaneurysm following procedure I97.89; I72.9 2. Injury of right femoral artery, subsequent encounter S75.001D Plan Currently I am quite pleased with the ultrasound-guided thrombin injection results of the right groin pseudoaneurysm. She still has a AV fistula. She does not appear to be acutely symptomatic from that . She will be receiving a 30-day monitor to assess the efficacy of her atrial fibrillation ablation. She is still on anticoagulant. She is diabetic. She has possibly a mild degree of neuropathy. She d enies any previous history of foot sores or ulcerations. I proposed for her low- grade 15-20 mm thigh-high support hose bilaterally. She has been given strict instructions of the importance of daily tim t inspection. She has been provided a prescription. At this point I am anticipating allowing ongoing resolution of the post cardiac catheterization changes of the right groin. I anticipate duplex imagi ng of the right groin 3 months and then office follow-up. If the fistula persists then would consider surgical repair if deemed pertinent based upon symptomatology. She has had an opportunity to ask an d have questions answered. I very much appreciate the ongoing opportunity of assisting with her surgical care. Cc: Dr. Nia Uriostegui and Dr. Jonel Ceron M.D., F.A.C.S. Coding [facility] Code Off vis,est,level 2 Diagnoses Pseudoaneurysm following procedure I97.89; I72.9 Injury of right femoral artery, subsequent encounter S75.001D Encounter type: subsequent encounter Laterali ty: right 12/19/17 4641 <Electronically signed by Je Ceron MD> Date Je Ceron MD Cosigner Signature: Date _ (if applicable) CC: Jonel Rashid MD; Nia Uriostegui DO 15-Dec-2017 Arterial Duplex US, Limited Result: Comments: See Note; NOTES: [facility] Cardiovascular Services [address] [place] [address] Art Duplex US Unilat Lower Ext 12/15/17 1350 MR#: [id number] Acct: [id number] Name: COMFORT OLSON Rep #: [id number] : 1940 77 From: Je Ceron MD Attending Dr: JAYA GARZA Status: REG CLI Ordering Dr: Je Ceron MD Date: 12/15/17 Location: [facility] Sex: F C Admitted: Antoinette mcwilliams For Study: F/U PSA thrombin injection Right Velocities RT ASSISTANT PROJECT ENGINEER - .72 x .74 cm with a velocity of 153.0 cm/s CFV demonstrates normal color flow and slightly pulsatile doppler signal. Successfully thrombosed pseudoaneurysm now measuring 1.2 x 1.9 cm Prox SFA demonstrates turbulent flow with a velocity of 148.0 cm/s Prox FV demonstrates turbulent, pulsatile flow. Visible connection noted between P siomara SFA and FV. Procedure Exam performed in department. Interpretation Summary 0.72 x 0.74 cm right common femoral artery with normal triphasic flow Persistently thrombosed right groin pseudoaneurysm measuring 1.24 x 1.93 cm Fistulous communication between the right superficial femoral artery and femoral vein now better identified. Ordering Physician: Je Ceron Performed By: Sanaz Sheth RVT 12/15/17 1702 Date ____ Je Ceron MD CC: Nia Uriostegui DO; OUT OF TOWN DOCTOR; Je Ceron MD Date Dictated: 12/15/17 1350 Date Transcribed: 12/15/17 1702 Cooker Cleaner: Signed 12-Dec-2017 Arterial Duplex US, Limited Result: Comments: See Note; NOTES: [facility] Cardiovascular Services [address] [place] [address] Art Duplex US Unilat Lower Ext 12/12/17 1304 MR#: [id number] Acct: [id number] Name: COMFORT LOSON Rep #: [id number] : 1940 77 From: Je Ceron MD Attending Dr: Je Ceron MD Status: REG CLI Ordering Dr: Je Ceron MD Date: 12/12/17 Location: [facility] Sex: F C Admitted: Reason For Study: RT Groin pseudoanerysm thrombin injection Right Velocities Rt groin pseudoaneurysm successfully thrombosed s/p thrombin injection. Normal color flow and doppler signal ASSISTANT PROJECT ENGINEER and FV. P rocedure Exam performed in department. Interpretation Summary Successful thrombosis right femoral pseudoaneurysm __ Ordering Physician: Je Ceron Performed By: Sanaz Sheth RVT 12/12/17 1404 Date Je Ceron MD CC: Nia Uriostegui DO; Je Ceron MD Date Dictated: 12/12/17 1304 Date Transcribed: 12/12/17 1404 Cooker Cleaner: Signed 12-Dec-2017 Operative Report Result: Comments: See Note; NOTES: [facility] Medical Records Department [address] [place] [address] Operative Report 12/12/17 1359 MR#: [id number] Acct: [id number] Name: COMFORT OLSON Rep #: [id number] : 1940 77 From: Je Ceron MD PCP: Nia Uriostegui DO Status: REG CLI Y Location: [facility] Problem List (1) Pseudoaneurysm following procedure Status: Acute Report of Opera tion Date of Procedure: 12/12/17 Pre-Operative Diagnosis: Pseudoaneurysm right femoral artery Post-Operative Diagnosis: Same Surgery/Procedure Performed:: Ultrasound-guided thrombin injection right femo ral artery pseudoaneurysm Description of Surgical Findings:: Timeout and informed consent was obtained. 77-year-old female was taken to the noninvasive vascular lab. She was placed initially supine on the table and then gentle Trendelenburg position to assist her with holding up her pannus. The right groin was sterilely prepped and draped. Sterile transducer was utilized on the ultrasound probe. Ster ile gel was used. Ultrasound was performed demonstrating the pseudoaneurysm in the right groin. 1% lidocaine was used as local anesthetic. A total of 2 cc was injected. I initially tried a 25-gauge need le to access the pseudoaneurysm but then converted over to a 22-gauge needle. The tip could be seen within the aneurysm with the bevel up. I utilized thrombin 1000 units/cc and I injected 0.15 cc. There was immediate thrombosis of the pseudoaneurysm. The artery and vein directly beneath were carefully inspected and noted to be nicely intact. The right foot pulses remained unchanged. The patient had ab solutely no discomfort and tolerated the procedure well. She will now be observed for 2 hours. No apparent complications. Images demonstrate the initial right femoral pseudoaneurysm with successful th rombosis and complete lack of flow subsequent to the injection Je Ceron M.D., F.A.C.S. Type of Anesthesia:: Local 12/12/17 8843 <Electronically signed by Je Ceron MD> Baldo e Je Ceron MD CC: Nia Uriostegui DO; Je Ceron MD Signed 12-Dec-2017 Surgery Visit Report Result: Comments: See Note; NOTES: [facility] [place] [address] OFFICE VISIT Date of Service: 12/12/17 MR#: [id number] Acct: [id number] Name: COMFORT OLSON Rep #: [id number] : 1940 Provider: Je Ceron MD Age/Sex: 77/F Location: [facility] Status: Signed Intake Intake Visit Reasons: Pseudoaneurysm Chief Complaint: Follow up Allergies No Kn own Allergies Allergy (Verified 12/12/17 09:14) Medications Albuterol IH (ProAir) [Proair Hfa (SP)Vent Pts] 2 puff INHALATION Q4H PRN PRN 08/24/17 [History Confirmed 12/12/17] Atorvastatin Calcium [ Lipitor] 40 mg PO QHS 08/24/17 [History Confirmed 12/12/17] Cholecalciferol (Vitamin D3) [Vitamin D3] 6,000 unit PO DAILY 08/24/17 [History Confirmed 12/12/17] Fluticasone/Salmeterol [Advair 250/50 Mcg Diskus] 1 puff INHALATION BID 08/24/17 [History Confirmed 12/12/17] Furosemide 40 mg PO QHS 08/24/17 [History Confirmed 12/12/17] Gabapentin [Neurontin] 100 mg PO BIDCM 08/24/17 [History Confirmed 12/12] Insulin Detemir [Levemir] 19 unit SQ QHS 08/24/17 [History Confirmed 12/12/17] Lansoprazole [Prevacid] 30 mg PO DAILY 08/24/17 [History Confirmed 12/12/17] Linagliptin [Tradjenta] 5 mg PO DAILY [History Confirmed 12/12/17] Metformin HCl 1,000 mg PO BID 08/24/17 [History Confirmed 12/12/17] Methscopolamine [place] 5 mg PO BID 08/24/17 [History Confirmed 12/12/17] Montelukast [Singulair] 1 0 mg PO DAILY 08/24/17 [History Confirmed 12/12/17] Nitroglycerin [Nitrostat] 0.4 mg SUBLINGUAL Q5M PRN 08/24/17 [History Confirmed 12/12/17] Potassium Chloride [Klor-Con] 20 meq PO DAILY 08/24/17 [Hist ory Confirmed 12/12/17] apixaban 5 mg tablet 5 mg PO BID #180 tab 09/25/17 [Rx Confirmed 12/12/17] magnesium oxide 400 mg (241.3 mg magnesium) tablet 400 mg PO QDAY tab 09/25/17 [History Confirmed 12/12] metoprolol tartrate 50 mg tablet 50 mg PO BID #180 tab 10/08/17 [Rx Confirmed 12/12/17] amiodarone 200 mg tablet 200 mg PO TID #90 tab 10/28/17 [Rx Confirmed 12/12/17] PFSH Medical History Pseu doaneurysm following procedure (Acute) Bruit (arterial) (Acute) Injury of femoral artery (Acute) Left bundle branch block (Chronic) New onset atrial flutter (Acute 09/29/17) Non-rheumatic tricuspid valv e insufficiency (Chronic) Secondary pulmonary arterial hypertension (Chronic) Cardiomyopathy in diseases classified elsewhere (Chronic) Paroxysmal atrial fibrillation (Chronic) Atherosclerotic heart dis ease of [place] coronary artery without angina pectoris (Chronic) HLD (hyperlipidemia) (Chronic) Hypertension (Chronic) Obesity (Chronic) Non-ST elevation myocardial infarction (NSTEMI) due to mismatch o f myocardial oxygen supply and demand (Chronic) Asthma (Chronic) Benign paroxysmal positional vertigo (Chronic) Gout (Chronic) Meningioma (Chronic) Other cerebral infarction (Chronic) Partial symptomati c epilepsy with complex partial seizures, intractable, with status epilepticus (Chronic) Type 2 diabetes mellitus (Chronic) History of hysterectomy (Resolved) Atrial enlargement, left (Inactive) Surgi jyoti History Presence of aortocoronary bypass graft (Chronic) History of colonoscopy (Acute) history of cardiac ablation (Acute 11/2017) History of cardioversion (Acute 09/29/17) H/O craniotomy (Resolv ed 2009) History of ankle surgery (Resolved) History of left heart catheterization (LHC) (Resolved 11/25/16) History of tonsillectomy (Resolved) Family History Father CAD (coronary artery disease) Hy pertension Cancer skin Mother CAD (coronary artery disease) Hypertension Diabetes Brother CAD (coronary artery disease) Sister CAD (coronary artery disease) Myocardial infarction Social History Smokin g Status: Never smoker alcohol intake: never substance use type: does not use diet: diabetic caffeine: Yes Type: tea, carbonated beverages what type of physical activity do you participate in: none seat belt use: always do you feel safe at home: Yes HPI HPI HPI: COMFORT OLSON, is a 77 F who presents to the office today for surgical consultation regarding a right groin pseudoaneurysm. The patient is re ferred by Dr. Jonel Rashid. A written copy of my surgical consult and recommendations will be returned to him The patient had cardiac ablation for atrial fibrillation performed at [facility] per Dr. Greene. Patient is about 10 days out. She complained of swelling and pain. She presented to Dr. Richmond's office yesterday. A ultrasound was obtained. This demonstrates a 2 cm pseudoaneurysm in the [facility] groin but there is additional concern for possible AV fistula. The patient continues to complain of soreness and tightness and firmness. Exam Extrem Other: The right groin is ecchymotic. There is diffuse induration, no erythema, no drainage, approximately 5 or 6 puncture sites are noted. No current drainage. Right popliteal is difficult to palpate due to body habitus and swelling. Approximatel y 1+. Right DP is 3+. Right PT difficult to palpate due to edema Assessment AND Plan Problems 1. Pseudoaneurysm following procedure I97.89; I72.9 Plan 77-year-old female. She is now 12 days status p ost right groin access for atrial fibrillation cardiac ablation. She is on Eliquis and aspirin. These have been held as of last night. She definitely has a right groin pseudoaneurysm. There may be a sma ll AV fistula. The patient needs to continue her anticoagulation as discussed with Dr. Jonel Rashid. With the patient's son present I had an extensive discussion with the patient regarding treatment opt ions. I do not believe that if there is a small fistula present that requires any type of urgent intervention at this setting. She is tender however I do believe that the pseudoaneurysm requires treatme nt. I do not believe that it will spontaneously thrombosed particularly with her ongoing anticoagulation. I proposed for her an ultrasound-guided thrombin injection of the right groin pseudoaneurysm. I n great detail I discussed the technique, benefits, risks, alternatives. Absolutely no guarantees of success have been offered. We have discussed the additional potential risk of arteriovenous embolizat ion. She has had an opting to ask and have questions answered. I anticipate a low volume treatment. The patient is aware that repeat treatment may be required. The patient can then be followed conserv atively. Future follow-up with duplex to inspect for possible residual fistula can be pursued as well. Cc: Dr. Jonel Ceron, Krystyna., F.A.C.S. Coding Level of Care Code Prob focused, str aight fwd Diagnoses Pseudoaneurysm following procedure I97.89; I72.9 12/12/17 0940 <Electronically signed by Je Ceron MD> Date R rigoberto Ceron MD Cosigner Signature: Date (if applicable) CC: Jonel Rashid MD 12-Dec-2017 Office Visit Report Result: Comments: See Note; NOTES: [facility] Services [address] [place] [address] OFFICE VISIT Date of Service: 12/11/17 MR#: [id number] Acct: [id number] Patient: COMFORT OLSON Rep #: [id number] : 1940 Provider: Jonel Rashid MD Age/Sex: 77/F Location[facility] Status: Signed Intake Intake Visit Reasons: PER HELEN, WOUND CK Chief Complaint: Follow up Allergies No Known Allergies Chevy giles (Verified 10/08/17 10:23) Medications Albuterol IH (ProAir) [Proair Hfa (SP)Vent Pts] 2 puff INHALATION Q4H PRN PRN 08/24/17 [History Confirmed 10/31/17] Atorvastatin Calcium [Lipitor] 40 mg P O QHS 08/24/17 [History Confirmed 10/31/17] Cholecalciferol (Vitamin D3) [Vitamin D3] 6,000 unit PO DAILY 08/24/17 [History Confirmed 10/31/17] Fluticasone/Salmeterol [Advair 250/50 Mcg Diskus] 1 puff I NHALATION BID 08/24/17 [History Confirmed 10/31/17] Furosemide 40 mg PO QHS 08/24/17 [History Confirmed 10/31/17] Gabapentin [Neurontin] 100 mg PO BIDCM 08/24/17 [History Confirmed 10/31/17] Insulin Det huma [Levemir] 19 unit SQ QHS 08/24/17 [History Confirmed 10/31/17] Lansoprazole [Prevacid] 30 mg PO DAILY 08/24/17 [History Confirmed 10/31/17] Linagliptin [Tradjenta] 5 mg PO DAILY 08/24/17 [History C onfirmed 10/31/17] Metformin HCl 1,000 mg PO BID 08/24/17 [History Confirmed 10/31/17] Methscopolamine [place] 5 mg PO BID 08/24/17 [History Confirmed 10/31/17] Montelukast [Singulair] 10 mg PO DAILY [History Confirmed 10/31/17] Nitroglycerin [Nitrostat] 0.4 mg SUBLINGUAL Q5M PRN 08/24/17 [History Confirmed 10/31/17] Potassium Chloride [Klor-Con] 20 meq PO DAILY 08/24/17 [History Confirmed ] apixaban 5 mg tablet 5 mg PO BID #180 tab 09/25/17 [Rx Confirmed 10/31/17] magnesium oxide 400 mg (241.3 mg magnesium) tablet 400 mg PO QDAY tab 09/25/17 [History Confirmed 10/31/17] metoprolol tartrate 50 mg tablet 50 mg PO BID #180 tab 10/08/17 [Rx Confirmed 10/31/17] amiodarone 200 mg tablet 200 mg PO TID #90 tab 10/28/17 [Rx Confirmed 10/31/17] Assessment AND Plan Orders Orders: Eufemia dahl Note Pt had ablation last week, and now notices a large lump below insertion site. She also said she is very bruised. I asked her to come in to assess. There is extensive purple/red ecchymosis over t op of right thigh circumferentially to about half way down thigh. Then there is some fading ecchymosis turning a slight yellow color down bottom half of thigh toward knee, with some edema at knee. There is a 1 inch diameter flat, firm palpable hemotoma directly distal to healing insertion site. There is no redness, drainage or edema at insertion site. Some pulsation but not necessarily bruit heard wit h auscultation of site. Pt does have discomfort.Annemarie Parsons ordered scan to make sure there is no AV fistula at site. 12/12/17 0825 <Electronically signed by Jonel Rashid MD> Da te Jonel Rashid MD Cosigner Signature: Date (if applicable) CC: Helen Brito 11-Dec-2017 Arterial Duplex US -MATTIE Extrem Result: Comments: See Note; NOTES: [facility] Cardiovascular Services [address] [place] [address] Art Duplex US Bilat Lower Ext 12/11/17 1408 MR#: [id number] Acct: [id number] Name: COMFORT OLSON Rep #: [id number] : 1940 77 From: Je Ceron MD Attending Dr: Annemarie Parsons Status: REG CLI Ordering Dr: Jonel Rashid MD Date: 12/11/17 Location: [facility]S Sex: F C Admitted: Reason For Study: Rt groin pain/ecchymosis - Right Velocities Left Velocities RT ASSISTANT PROJECT ENGINEER - 1.2 x 1.2 cm with a velocity of 159.0 LT ASSISTANT PROJECT ENGINEER - .88 x .83 cm with a velocity of 98.2 cm/s cm/s LT CFV demonstrates normal phasic flow signal. RTCFV demonstrates mildly pulsatile, turbulent flow Pseudoaneurysm noted at level of SFA measuring 2.0 x 2.0 cm with visible neck. FV demonstrates pulsatile flow at level of pseudoaneurysm. Pseudoaneurysm noted with possible AV fistula. Procedure Exam performed in department. Interpretation Summary Right common femoral artery 1.19 x 1.15 cm Right groin 2 x 2 cm pseudoan eurysm Pulsitile flow right femoral vein at the level of the pseudoaneurysm suspicious for an arteriovenous fistula at this level. Left common femoral artery 0.88 x - .83cm and normal flow. Ordering Physician: Jonel Rashid Referring Physician: Annemarie Parsons Performed By: Sanaz Sheth RVT 12/11/171818 Date Je Ceron MD CC: Jonel Rashid MD; Nia Uriostegui DO; Earl Parsons Date Dictated: 12/11/17 1408 Date Transcribed: 12/11/171818 Cooker Cleaner: Signed 04-Nov-2017 Operative Report Result: Comments: See Note; NOTES: [facility] Medical Records Department [address] [place] [address] Operative Report 11/03/17 1228 MR#: [id number] Acct: [id number] Name: COMFORT OLSON Rep #: [id number] : 1940 76 From: Patrick Ellsworth MD PCP: Nia Uriostegui DO Status: DEP [facility] Location: [facility] Problem List (1) New onset atrial flutter Status: Acute (2) Atherosclerotic heart disease of [place] coronary artery without angina pectoris Status: Chronic Qualifiers: [place] vs. transplanted heart: [place] heart Qualified Code(s): I25.10 - Atherosclerotic heart disease of [place] nitin nary artery without angina pectoris Comment: 08/06/2004 CABG x2 VILLAGRAN side to side to second Diagonal and end to side to Anterior Descending artery in Sequential fashion. C: 08/01/2004; 10/15/2011 (3) Cardiomyopathy in diseases classified elsewhere Status: Chronic (4) HLD (hyperlipidemia) Status: Chronic Qualifiers: Hyperlipidemia type: mixed hyperlipidemia Qualified Code(s): E78.2 - Mixed hyperlip idemia (5) Hypertension Status: Chronic Qualifiers: Hypertension type: essential hypertension Qualified Code(s): I10 - Essential (primary) hypertension (6) Left bundle branch block Status: Chronic ( 7) Obesity Status: Chronic Qualifiers: Obesity type: unspecified obesity type Obesity classification: unspecified obesity classification Serious obesity comorbidity presence: unspecified whether serious comorbidity present Qualified Code(s): E66.9 - Obesity, unspecified (8) Paroxysmal atrial fibrillation Status: Chronic (9) Presence of aortocoronary bypass graft Status: Chronic Comment: 08-06-04 CABG x2 VILLAGRAN side to side to second Diagonal and end to side to Anterior Descending artery in Sequential fashion (10) Secondary pulmonary arterial hypertension Status: Chronic Operative Report Date of Pro cedure: 11/03/17 - Conscious sedation CONSCIOUS SEDATION REPORT BRIEF HISTORY OF PRESENT ILLNESS: The patient is a 76-year-old female who presented to [facility] for an elective outpat ient cardioversion due to underlying atrial fibrillation. The patient reports no PO intake since midnight. The patient does have a history of obstructive sleep apnea, but is not compliant with therapy. The patient reports no history of smoking and COPD. The patient denies any recent constitutional symptoms such as fevers, chills, nausea or vomiting. The patient denies previous anesthetic complications . Last known ejection fraction of 50%. Patient has had multiple cardioversions, but only has problems in the ER. Review of the the patient's chart shows Cardizem is typically given tate or to cardioversion in the ER. Otherwise, no significant changes from outpatient cardioversions. Previous cardioversion did use etomidate, but EF was depressed at that time. PHYSICAL EXAMINATION: VITAL SIGNS: Reviewed and were acceptable. GENERAL: The patient is an obese female, in no apparent distress, speaking in full sentences. HEENT: Normocephalic, atraumatic. Mucous membranes are moist and pink. Good mouth opening noted. Trachea is midline. Good neck mobility. MP IV CHEST: S1, S2 irregularly irregular. No murmurs, rubs or gallops were noted. LUNGS: Clear to auscultation bilaterally w ithout appreciable wheezes, rales or rhonchi. ABDOMEN: Soft, nontender, nondistended. Positive bowel sounds. EXTREMITIES: There is no clubbing, cyanosis or edema. ASA Class: II DESCRIPTION OF PROCEDUR E: After confirmation of informed consent, the patient's anesthesia plan was reviewed in detail. Propofol was chosen. Risks and benefits were reviewed and the patient agreed to proceed. At 12:04 PM, the patient was given 40 mg of propofol. The patient achieved an appropriate level of sedation and received 1 attempt s synchronized cardioversion, at [address] Rahsid at the bedside. This w as successful in achieving normal sinus rhythm. The patient was monitored until 12:10 PM, at which time the patient reached their baseline mental status and function. The patient tolerated the procedure well. COMPLICATIONS: None ESTIMATED BLOOD LOSS: None RECOMMENDATIONS: Okay to recover in usual fashion. Code Visit 9xxxx: Other Procedure See Report - [id number] 11/04/17 0525 <Electronically signed by Partick Ellsworth MD> Date Patrick Ellsworth MD CC: Patrick Ellsworth MD; Jonel Rashid MD; Nia Uriostegui DO Signed 03-Nov-2017 Operative Report Result: Comments: See Note; NOTES: [facility] Medical Records Department [address] [place] [address] Operative Report 11/03/17 1214 MR#: [id number] Acct: [id number] Name: COMFORT OLSON Rep #: [id number] : 1940 76 From: Jonel Rashid MD PCP: Nia Uriostegui DO Status: REG SD Y Location: [facility] Operative Report Date of Procedure: 11/03/17 DC cardioversion. 76-year-old lady wi th a history of symptomatic atrial flutter. Patient on anticoagulation. The patient was brought to the noninvasive cardiac catheterization lab. The patient was seen in consultation by Dr. Ellsworth of the critical care division. An EKG was performed which demonstrated atrial flutter with a controlled ventricular response rate. Patient has been on anticoagulation uninterrupted for at least 3 weeks. Infor med consent was obtained anterior posterior pads were applied. 200 J of synchronized cardioversion energy were applied after the patient was administered 40 mg of intravenous propofol for sedation. Prom pt reversal to sinus rhythm was noted. The patient tolerated the procedure well. Conclusion: Successful DC cardioversion to sinus rhythm. Continue amiodarone at the current dose Continue anticoagulatio n. Referred to EP service for atrial flutter ablation 11/03/17 1216 <Electronically signed by Jonel Rashid MD> Date Jonel Rashid MD CC: Jonel Rashid MD; Nia Uriostegui DO Signed 08-Oct-2017 Cardiology Visit Report Result: Comments: See Note; NOTES: [facility] [address] [place] [address]. [address] [place] [address] OFFICE VISIT Date of Service: 10/08/17 MR#: [id number] Acct: [id number] Name: COMFORT OLSON Re p #: [id number] : 1940 Provider: Jonel Rashid MD Age/Sex: 76/F Location: [facility] Status: Signed [facility] Chief Complaint: Follow up Details: COMFORT OLSON, is a 76 F who presents to the office today for a follow-up visit. She is a lady with a history of coronary artery disease status post carotid bypass surgery in 2004 with a left internal mammary artery to the second diagonal vessel and left ante rior descending artery. She also has a history of atrial fibrillation with rapid ventricular response rate. She previously had a history of a meningioma and so it was not clear whether we could anticoag ulate her on not but after clearing with her neurosurgeon she has been put on Eliquis which she is tolerating. In April of this year she presented to the emergency room with atrial fibrillation with a r apid ventricular response rate and underwent urgent DC cardioversion. She presented again in September with atrial flutter and underwent synchronized DC cardioversion and within a week she had presented ag ain and required the same. Her amiodarone was increased to 200 mg twice a day for 3 days and then back to 200 mg a day. She still is taking the beta-carolyn and the Eliquis. He also do remember that in August of this year she was in the emergency room with atrial flutter and had DC cardioversion. She has been on a lower dose of the amiodarone as well as the metoprolol which she has tolerated. She tells me that there is a recall on her valsartan and she has stopped taking it and feels okay. She has had some shortness of breath with activity. She has remained on the Eliquis. She has had some shortness o f breath but remains on her diuretics. She has had no dizziness or diaphoresis no near syncope or syncope. Her physical exam today demonstrates clear lung castro regular rate and rhythm no pedal edema a nd normal blood pressure. 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 Allergies No Known Allergies Allergy (Verified 10/08/17 10:23) Medications Albuterol IH (ProAir) [Proair Hfa (SP)Vent Pts] 2 puff INHALATION Q4H PRN PRN 08/24/17 [History Confirmed 10/05/17] Atorvastatin Calcium [Lipitor] 40 mg PO QHS 08/24/17 [History Confirmed 10/05/17] Cholecalciferol (Vitamin D3) [Vitamin D3] 6,000 unit PO DAILY 08/24/17 [H istory Confirmed 10/05/17] Fluticasone/Salmeterol [Advair 250/50 Mcg Diskus] 1 puff INHALATION BID 08/24/17 [History Confirmed 10/05/17] Furosemide 40 mg PO QHS 08/24/17 [History Confirmed 10/05/17] Wild apentin [Neurontin] 100 mg PO BIDCM 08/24/17 [History Confirmed 10/05/17] Insulin Detemir [Levemir] 19 unit SQ QHS 08/24/17 [History Confirmed 10/05/17] Lansoprazole [Prevacid] 30 mg PO DAILY 08/24/17 [ History Confirmed 10/05/17] Linagliptin [Tradjenta] 5 mg PO DAILY 08/24/17 [History Confirmed 10/05/17] Metformin HCl 1,000 mg PO BID 08/24/17 [History Confirmed 10/05/17] Methscopolamine [place] 5 mg P O BID 08/24/17 [History Confirmed 10/05/17] Montelukast [Singulair] 10 mg PO DAILY 08/24/17 [History Confirmed 10/05/17] Nitroglycerin [Nitrostat] 0.4 mg SUBLINGUAL Q5M PRN 08/24/17 [History Confirmed 0 10/05/17] Potassium Chloride [Klor-Con] 20 meq PO DAILY 08/24/17 [History Confirmed 10/05/17] apixaban 5 mg tablet 5 mg PO BID #180 tab 09/25/17 [Rx Confirmed 10/05/17] magnesium oxide 400 mg tablet 400 mg PO QDAY tab 09/25/17 [History Confirmed 10/05/17] amiodarone 200 mg tablet 200 mg PO DAILY #90 tab 10/08/17 [Rx Confirmed 10/08/17] metoprolol tartrate 50 mg tablet 50 mg PO BID #180 tab 10/08/17 [Rx Confirmed 10/08/17] [facility] Medical History Left bundle branch block (Chronic) New onset atrial flutter (Acute 09/29/17) 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 pulmonary arterial hypertension (Chronic) Cardiomyopathy in diseases classified elsewhere (Chronic) Paroxysmal atrial fibrillation (Chronic) Atherosclerotic heart disease of [place] coronary artery without angina pectoris (Chronic) HLD (hyperlipidemia) (Chronic) Hypertension (Chronic) Obesity (Chronic) Non-ST elevation myocardial infarction (NSTEMI) due to mismatch of my ocardial oxygen supply and demand (Chronic) Asthma (Chronic) Benign paroxysmal positional vertigo (Chronic) Gout (Chronic) Meningioma (Chronic) 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, intractable, with status epilepticus (Chronic) Type 2 diabetes mellitus (Chronic) Atrial enlargement, left (Inactive) Surgical History Presence of aortocoronary bypass graft (Chronic) History of cardioversion (Acute 09/29/17) H/O craniotomy (Resolved 2008) History of ankle surgery (Resolved) History of hysterectom y (Resolved) History of left heart catheterization (LHC) (Resolved 11/25/16) History of tonsillectomy (Resolved) Family History Father CAD (coronary paco ry disease) Mother CAD (coronary artery disease) Brother CAD (coronary artery disease) Sister CAD (coronary artery disease) Myocardial infarction Social History Smoking Status: Never smoker alcohol i ntake: never substance use type: does not use diet: diabetic caffeine: Yes Type: tea, carbonated beverages what type of physical activity do you participate in: none seatbelt use: always do you fe el safe at home: Yes ROS Const Const: Positive for weakness and fatigue; negative for headache(s) or frequent falls Eyes Eyes: Negative for loss of peripheral vision, transient loss of vision, blur ry vision, tunnel vision or double vision ENT ENT: Negative for headache(s), dizziness, Nosebleed/epistaxis or balance problems Cardio Chest Pain: No Palpitations: No Edema: Bilateral (New onset of peda l/ankle edema) Muscle aches with walking: None Resp Respiratory: Positive for SOB with activity; negative for SOB at rest, SOB orthopnea\SOB lying down, paroxysmal nocturnal dyspnea or Cough GI GI: Nega tive nausea, heartburn, black,tarry stools or vomiting : Negative for hematuria Musc Musc: Negative for balance problems, muscle aches/ myalgia, muscle weakness or joint pain Skin Skin: Negative no n-healing lesions, unusual bruising or rash Neuro Neuro: Positive for weakness; negative for blurry vision, double vision, headache(s), dizziness, lightheadedness, orthostatic symptoms, frequent falls, near syncope, syncope or lack of coordination [place] Hematologic/Lymphatic: Negative for easy bruising or easy bleeding Endo Endo: Positive for fatigue Psych Psych: Negative for anxiety or depression Tyler rgy Allergy/Immunology: Negative for hives, Negative for rash Cardiology Exam Const Appearance: cooperative, healthy appearing, well developed, well groomed and no acute distress Nutritional Appearanc e: well nourished and average body habitus Orientation: alert, awake and oriented x3 Head Head: normal to inspection, normocephalic and atraumatic Ears: hearing grossly normal bilaterally and external e ars normal Nose: external nose normal, nasal mucous membranes and turbinates normal, nares normal, septum normal, no nasal discharge Face and Sinus: face symmetric Mouth: oral mucosae normal, tongue nor mal, oropharynx normal and moist mucous membranes Teeth and gingiva: dentition normal Throat: posterior oropharynx normal, tonsils normal and uvula midline Eyes General: appearance normal, both eyes and all related structures Eyelids: eyelids normal Conjunctivae: conjunctivae normal Pupils: PERRL, normal by confrontation and accommodation normal EOM: EOM intact bilaterally Neck Neck: normal visual ins pection, trachea midline and no JVD JVD: +5 Carotids: normal carotid upstroke and bounding pulses Chest Chest inspection: normal inspection of the chest, symmetric chest movement and normal respiratory effort Auscultation: Bilateral: Clear to Auscultation Cardio Palpation: normal PMI Rate: regular rate Rhythm: regular rhythm Heart sounds: S1 normal, S2 normal and normal, physiologic split S2; negative rub, gallop or murmur GI GI: normal to inspection, soft, no hepatosplenomegaly and bowel sounds present Neuro General: alert, awake, oriented x3, no focal sensory deficit, gait normal and moves all ext remities Skin Skin: no rashes or lesions noted Extremities Pulses: Normal: Right Femoral Pulse, Left Femoral Pulse, Right Dorsalis Pedis Pulse, Left Dorsalis Pedis Pulse, Right Posterior Tibial Pulse, L eft Posterior Tibial Pulse, Right Radial Pulse, Left Radial Pulse Lower Extremity Edema: None: Bilateral Musculoskel Musculoskeletal: No joint tenderness Psych Psychological: normal affect Assessment AND Plan 1. Paroxysmal atrial fibrillation I48.0 Plan She does have a history of asthma atrial flutter. She has been on anticoagulation she has an ejection fraction of 50% and has had at least 4 cardiov ersions this year. At this juncture I would recommend that she be considered for an atrial fibrillation ablation. Arrangements were made at the [facility] for the above to be considered. In the meantime she will remain on her beta-carolyn as well as amiodarone. I would recommend increasing the beta-carolyn to 50 mg twice a day . 2. Essential hypertension I10 3. Left bundle branch bloc k I44.7 Plan She does have a chronic left bundle branch block and we will continue monitoring the above. 4. Presence of aortocoronary bypass graft Z95.1 08-06-04 CABG x2 VILLAGRAN side to side to second Diag onal and end to side to Anterior Descending artery in Sequential fashion Plan She does have a history of coronary artery bypass surgery. She does not appear to have had any anginal spells. You do remem hi she underwent a cardiac catheterization within the last year and no significant obstructive coronary disease was noted. 5. Cardiomyopathy in diseases classified elsewhere I43 Plan She does have a h istory of a mild cardiomyopathy but her ejection fraction has improved to 50%. My recommendation will be to continue the same medications without making any changes. Thank you for allowing me to partic ipate in the care of your patient. Please don't hesitate to call if any issues arise Plan Detail Other Medications New: Additional Comments With regard to her blood pressure I recommend that we increa se her beta-carolyn to 50 mg twice a day. She still has a left bundle branch block. 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) Coding Level of Care Code Off vis,est,level 4 Diagnoses Paroxysmal atrial fibrillation I48 .0 Essential hypertension I10 Hypertension type: essential hypertension Left bundle branch block I44.7 Presence of aortocoronary bypass graft Z95.1 Cardiomyopathy in diseases classified elsewhere I43 Coding Level of Care Code Off vis,est,level 4 Diagnoses Paroxysmal atrial fibrillation I48.0 Essential hypertension I10 Hypertension type: essential hypertension Left bundle branch block I44.7 Presence of aortocoronary bypass graft Z95.1 Cardiomyopathy in diseases classified elsewhere I43 10/08/17 1125 <Electronically signed by Jonel Rashid MD> Date Jonel Villasenor Signature: Date (if applicable) CC: Nia Uriostegui DO 07-Oct-2017 12 Lead Electrocardiogram Result: Comments: See Note; NOTES: [facility] Cardiovascular Services [address] [place] [address] 12 Lead EKG 10/05/17 0149 MR#: [id number] Acct: [id number] Name: COMFORT OLSON Rep # : [id number] : 1940 76 From: Jonel Rashid MD Attending Dr: Status: DEP ER Ordering Dr: Emery Allen MD Date: 10/05/17 Location: ED Sex: F C Admitted: Test Reason : A FIB Blood Pressure : /* mmHG Vent. Rate : 121 BPM Atrial Rate : 242 BPM P-R Int : 000 ms QRS Dur : 124 ms QT Int : 348 ms P-R-T Axes : 246 -48 172 degrees QTc Int : 494 ms Atrial flutter with 2:1 block Left axis deviation Left bundle branch block Abnormal ECG Confirmed by GAY ROSAS, JONEL ([id number]), graphics editor AMIRA CASTRO ([id number]) on 10/07/2017 2:45:19 PM Referred By: Jonel Rashid Confirmed By:JONEL RASHID MD 10/07/17 1445 Date _ Jonel Rashid MD CC: Emery Allen MD; Nia Uriostegui DO Signed 07-Oct-2017 12 Lead Electrocardiogram Result: Comments: See Note; NOTES: [facility] Cardiovascular Services [address] [place] [address] 12 Lead EKG 10/05/17 0333 MR#: [id number] Acct: [id number] Name: COMFORT OLSON Rep # : [id number] : 1940 76 From: Jonel Rashid MD Attending Dr: Status: DEP ER Ordering Dr: Emery Allen MD Date: 10/05/17 Location: ED Sex: F C Admitted: Test Reason : REPEAT Blood Pressure : / mmHG Vent. Rate : 070 BPM Atrial Rate : 070 BPM P-R Int : 188 ms QRS Dur : 126 ms QT Int : 432 ms P-R-T Axes : 048 -42 117 degrees QTc Int : 466 ms Normal sinus rhythm Left axis deviation Non-speci fic intra-ventricular conduction block T wave abnormality, consider lateral ischemia Abnormal ECG Confirmed by JONEL RASHID MD ([id number]), graphics editor AMIRA CASTRO ([id number]) on 10/07/2017 2:42:56 PM Referred By: Kathleen Rashid Confirmed By:JONEL RASHID MD 10/07/17 1442 Date Jonel Rashid MD CC: Emery Allen MD; Nia Uriostegui DO Signed 05-Oct-2017 Discharge Instruction Result: Comments: See Note; NOTES: [facility] Medical Records Department [address] [place] [id number] Discharge Instruction 10/05/17 0440 MR#: [id number] Acct: [id number] Name: Liyah OLSON Rep #: [id number] : 1940 76 From: Emery Allen MD PCP: Nia Uriostegui DO Status: DEP ER ED Disposition - Plan for ED Patient: Chief Complaint: Palpitations Instructions: ED Paroxysmal Atrial Flutter Referrals: Jonel Rashid MD [STAFF PHYSICIAN] - Additional Instructions: Increase amiodarone to 200 mg twice a day for the next 3 days, then switch to 200 mg once a day after that. Follow -up with Dr. Rashid. What to do if you have Problems For any increased pain, shortness of breath, bleeding, nausea or vomiting, chest pain, or any unexpected problems, contact your Primary Care Provi latrell. Call [facility] ([phone]) or report to the closest Emergency Room. Call 911 if necessary. 10/05/17 0528 <Electronically signed by Emery Allen MD> Date ____ Emery Allen MD Cosigner Signature (If Indicated): Date CC: Nia Uriostegui DO 05-Oct-2017 Emergency Department Summary Result: Comments: See Note; NOTES: [facility] Medical Records Department [address] [facility] [place] [address] Emergency Department Summary 10/05/17 0435 MR#: [id number] Acct: [id number] Name: COMFORT OLSON Rep #: [id number] : 1940 76 From: Emery Allen MD PCP: Nia Uriostegui DO Status: DEP ER - ER Visit Summary Date of Service: 10/05/17 Chief Complaint: Heart rate up History of Present Illness: The patient is a 76 F with a rapid heart rate and palpitations. Symptoms started around 11 PM overnight tonight. Patient has a history of atrial flutter and takes metoprolol, amiodarone , and Eliquis. She underwent synchronized cardioversion earlier this week and was told that if her symptoms recurred, she should take an extra dose of amiodarone. This did not help. Nothing seemed to br ing this on or make it better. She does have some mild shortness of breath. No other associated symptoms. Physical Examination: Blood pressure 169/117 and heart rate 122. Otherwise vitals unremarkable. Patient is alert and oriented. No acute distress. Heart is tachycardic. Lungs are clear. Skin normal in color with good perfusion. Test Results: EKG showed atrial flutter at a rate of 121. Chest x-ray showed left basilar atelectasis, nothing acute. Hemoglobin 11.9, glucose 225, creatinine 1.3, troponin normal. Emergency Department Course and Treatment: Patient was seen immediately. EKG done. She wa s placed on a monitor and had IV access. She was hesitant to have synchronized cardioversion. According to the patient, she had hypotension and felt funny after her last cardioversion. She thinks her sy mptoms were related to the Cardizem and subsequent treatment with etomidate prior to cardioversion. She would like to try medical therapy first. She received metoprolol, IV, 5 mg, 3 times. She had no ch ru in her heart rate. Patient was discussed with Dr. Grande. No further recommendations medically. He did advise synchronize cardioversion. Patient consented. Pretreated with Zofran. She received a t otal of 70 mg of propofol to achieve appropriate sedation. She was monitored and had stable blood pressures. She had spontaneous respirations. She was cardioverted with 150 J, synchronized. She has subs equent pause, brief bradycardia, and then went into sinus rhythm. She had occasional sinus pauses, but these resolved spontaneously. Repeat EKG showed sinus rhythm at a rate of 70. She does have some la teral T-wave changes. She had these on previous EKGs. Nothing acute. Patient is feeling much better. Blood pressures are stable. Dr. Grande had advised increasing her amiodarone to 200 mg twice a day f or 3 days and then switching to 200 mg every day. The patient will follow up with Dr. Rashid later this week. Treatment Plan: As above Disposition: Discharged Impression: 1. Atrial flutter This not e was generated with [employer] dictation software. It may contain incorrect words, spelling, and punctuation that were not noted in review of the chart prior to signing ED Disposition - Plan for ED Clarice ent: Chief Complaint: Palpitations Referrals: Nia Uriostegui, DO [Primary Care Provider] - What to do if you have Problems For any increased pain, shortness of breath, bleeding, nausea or vomiting, chest pain, or any unexpected problems, contact your Primary Care Provider. Call [facility] ([phone]) or report to the closest Emergency Room. Call 911 if necessary. 10/05/17 0528 &#60 ;Electronically signed by Emery Allen MD> Date Emery Allen MD Cosign Signature (If Indicated): Date CC: Nia Moody [place] 05-Oct-2017 Chest 1 View (Portable) Result: Comments: See Note; NOTES: [facility] Imaging Services [address] [place] [address] Chest 1 View (Portable) MR#: [id number] Acct: [id number] Name: COMFORT OLSON Rep #: [id number] : 1940 F 76 From: Chris Dwyer MD PCP: Nia Uriostegui DO Status: REG ER Study: Chest 1 View (Portable) Date of Exam: 10/05/17 Exam# [id number] Ordering Dr: Emery Allen MD STUDY: X-R AY CHEST REASON FOR EXAM: Female, 76 years old. Palpitations. Chest pain. TECHNIQUE: Single AP portable view of the chest. COMPARISON: 09/29/2017. FINDINGS: There is minimal left basilar atelectasis. There are no demonstrated acute pulmonary infiltrates. There is no demonstrated pleural abnormality. There is mild cardiac enlargement. There are sternotomy wires and surgical clips suggesting previous CABG. Normal mediastinum and emil. Normal visualized pulmonary arteries. Normal visualized aortic arch and descending thoracic aorta. Normal visualized thoracic s pine. Normal visualized ribs, clavicles, and shoulders. There is no demonstrated abnormality of the visualized soft tissue structures of the upper abdomen. ORDER # : [id number] RAD/Chest 1 View (Portable) IMPRESSION: Mild cardiomegaly. Minimal persistent left basilar atelectasis. No evidence for acute cardiopulmonary pathology. Electronically Signed: Chris Dwyer MD at 2:42 EDT , Service support , CC: Emery Allen MD; Nia Uriostegui DO Cooker Cleaner: Signed 03-Oct-2017 12 Lead Electrocardiogram Result: Comments: See Note; NOTES: [facility] Cardiovascular Services [address] [place] [address] 12 Lead EKG 10/02/17 1353 MR#: [id number] Acct: [id number] Name: FRITZCOMFORT Rep # : [id number] : 1940 76 From: Jonel Rashid MD Attending Dr: Gay ROSAS,Jonel Status: REG CLI Ordering Dr: Richard Lombardo WEIGHT TESTER-C Date: 10/02/17 Location: [facility] Sex: F C Admitted: Test Reason : AFLUTTER B lood Pressure : / mmHG Vent. Rate : 068 BPM Atrial Rate : 068 BPM P-R Int : 176 ms QRS Dur : 128 ms QT Int : 438 ms P-R-T Axes : 054 -40 085 degrees QTc Int : 465 ms Normal sinus rhythm Left axis deviation Non-specific intra-ventricular conduction block Abnormal ECG Confirmed by JONEL RASHID MD ([id number]), graphics editor AMIRA CASTRO ([id number]) on 10/03/2017 1:43:28 PM Referred By: Jonel Rashid Confirmed By:USMAN RASHID MD 10/03/17 1343 Date Jonel Rashid MD CC: JOSSELYN Lombardo; Jonel Rashid MD; Nia Uriostegui DO Signed 02-Oct-2017 Echo, Complete w/ Contrast Result: Comments: See Note; NOTES: [facility] Cardiovascular Services [address] [place] [address] Echo Complete W/ Contrast 10/02/17 1250 MR#: [id number] Acct: [id number] Name: COMFORT JONES Rep #: [id number] : 1940 76 From: Jonel Rashid MD Attending Dr: Gay ROSAS,Jonel Status: REG CLI Ordering Dr: Jonel Rashid MD Date: 10/02/17 Location: [facility] Sex: F C Admitted: Reason Fo r Study: S/P CABG Procedure This was a 2D Doppler, Color Flow transthoracic echocardiogram. Contrast injection was performed. The study was technically difficult. Exam performed in department. Left Ve ntricle Normal LV size. The estimated ejection fraction is 50 %. Septal motion consistent with IVCD. Transmitral diastolic flow velocities suggest moderate (stage 2) diastolic dysfunction (pseudonormal pattern). There is mild global hypokinesis of the left ventricle. Right Ventricle Normal RV size. Normal systolic function. Atria The left atrium is mildly enlarged. Normal right atrium. Mitral Valve Normal mitral valve. Tricuspid Valve Normal tricuspid valve. Mild to moderate (1-2+) tricuspid valve insufficiency. Pulmonary artery systolic pressure is 54 mmHg. Aortic Valve Trisinus/trileaflet aort ic valve. Mild (1+) eccentric aortic valve insufficiency. Pulmonic Valve Normal pulmonic valve. Great Vessels Normal aortic root. The pulmonary artery is normal size. Normal inferior vena cava. Peric ardium/Pleural No pericardial effusion. Medication 22 gauge I.V. with prn adaptor inserted into right arm. Diluted definity 3ml given slow IV push to enhance endocardial definition. MMode/2D Measuremen ts AND Calculations LVIDd: 4.8 cm IVSd: 1.1 cm Ao root diam: 3.4 cm LVIDs: 4.0 cm LVPWd: 1.3 cm LA dimension: 5.0 cm RVDd: 3.9 cm FS: 17.0 % LAV(MOD-bp): 61.6 ml LVAd ap4: 33.3 cm2 EDV(MOD-sp2): 107.4 ml LAV(MOD-bp) Indexed: 31.8 ml/m2 EDV(MOD-sp4): 107.3 ml EF(MOD-sp2): 47.2 % LAV(MOD-sp2): 52.3 ml EDV(sp4-el): 107.7 ml LAV(MOD-sp4): 71.8 ml LVAs ap4: 20.8 cm2 ESV(MOD-sp4): 46.8 ml ESV(sp4-el): 46.5 ml EF(MOD-sp4): 56.4 % EF(sp4-el): 56.9 % ___ SV(MOD-sp4): 60.5 ml SV(MOD-sp2): 50.7 ml SV(sp4-el): 61.3 ml LA A4 area: 23.7 cm2 RA A4 area: 18.3 cm2 Time Measu rements MV dec time: 0.16 sec Doppler Measurements AND Calculations MV E max angie: 92.9 cm/sec Lat Peak E' Angie: 7.5 cm/sec Med Peak E' Angie: 5.0 cm/sec MV A max angie: 90.7 cm/sec E/E' lat: 12.4 E/E' med: 1 8.5 MV E/A: 1.0 Ao V2 max: 138.7 cm/sec LV V1 max: 83.2 cm/sec PA V2 max: 118.5 cm/sec Ao max P.7 mmHg LV V1 max P.8 mmHg Ao V2 mean: 101.6 cm/sec LV V1 mean P.4 mmHg Ao mean P.5 mmHg LV V1 mean: 55.1 cm/sec Ao V2 VTI: 33.2 cm LV V1 VTI: 20.3 cm PI end-d angie: 124.0 cm/sec TR max angie: 351.1 cm/sec TR max P.3 mmHg Interpretation Summary Normal LV size. The estimated ejection fraction is 50 %. Septal motion consistent w ith IVCD. There is mild global hypokinesis of the left ventricle. Transmitral diastolic flow velocities suggest moderate (stage 2) diastolic dysfunction (pseudonormal pattern). Compared to the previous the LV function is improved. Ordering Physician: Jonel Rashid Referring Physician: Jonel Rashid erformed By: Rachel Oconnor, NEREYDA, RVT 10/02/17 9603 Date Jonel Rashid MD CC: Jonel stubsb MD; Nia Uriostegui DO Date Dictated: 10/02/17 1250 Date Transcribed: 10/02/17 174 Cooker Cleaner: Signed 02-Oct-2017 12 Lead Electrocardiogram Result: Comments: See Note; NOTES: [facility] Cardiovascular Services [address] [place] [address] 12 Lead EKG 09/29/17 1035 MR#: [id number] Acct: [id number] Name: COMFORT OLSON Rep # : [id number] : 1940 76 From: Antonio Tovar MD Attending Dr: Status: DEP ER Ordering Dr: Jignesh Tello MD Date: 09/29/17 Location: ED Sex: F C Admitted: Test Reason : REPEAT- Blood Pressure : / mmHG Vent. Rate : 064 BPM Atrial Rate : 064 BPM P-R Int : 186 ms QRS Dur : 128 ms QT Int : 470 ms P-R-T Axes : 040 -39 134 degrees QTc Int : 484 ms Normal sinus rhythm Left axis deviation Non -specific intra-ventricular conduction block T wave abnormality, consider lateral ischemia Abnormal ECG Confirmed by ZARA ROSAS, ANTONIO ([id number]), graphics editor AMIRA CASTRO ([id number]) on 10/02/2017 1:30:21 PM Refer red By: BOZENA Confirmed By:ANTONIO TOVAR MD 10/02/171329 Date Antonio Tovar MD CC: Nia Uriostegui DO; Jignesh Tello MD Signed 02-Oct-2017 12 Lead Electrocardiogram Result: Comments: See Note; NOTES: [facility] Cardiovascular Services [address] [place] [address] 12 Lead EKG 09/29/17 1020 MR#: [id number] Acct: [id number] Name: COMFORT OLSON Rep # : [id number] : 1940 76 From: Antonio Tovar MD Attending Dr: Status: DEP ER Ordering Dr: Jignesh Tello MD Date: 09/29/17 Location: ED Sex: F C Admitted: Test Reason : REPEAT Blood Pressure : / mmHG Vent. Rate : 045 BPM Atrial Rate : 045 BPM P-R Int : 182 ms QRS Dur : 126 ms QT Int : 478 ms P-R-T Axes : 039 -37 161 degrees QTc Int : 413 ms Sinus bradycardia with marked sinus arrhythm ia Left axis deviation Left bundle branch block Abnormal ECG Confirmed by ANTONIO TOVAR MD ([id number]), graphics editor AMIRA CASTRO ([id number]) on 10/02/2017 1:27:54 PM Referred By: BOZENA Confirmed By:ANTONIO TOVAR MD 10/02/171326 Date Antonio Tovar MD CC: Nia Uriostegui DO; Jignesh Tello MD Signed 02-Oct-2017 12 Lead Electrocardiogram Result: Comments: See Note; NOTES: [facility] Cardiovascular Services [address] [place] [address] 12 Lead EKG 09/29/17 0905 MR#: [id number] Acct: [id number] Name: COMFORT OLSON Rep # : [id number] : 1940 76 From: Antonio Tovar MD Attending Dr: Status: DEP ER Ordering Dr: Jignesh Tello MD Date: 09/29/17 Location: ED Sex: F C Admitted: Test Reason : PALPS Blood Pressure : / mmHG Vent. Rate : 129 BPM Atrial Rate : 129 BPM P-R Int : 128 ms QRS Dur : 126 ms QT Int : 354 ms P-R-T Axes : 098 -48 186 degrees QTc Int : 518 ms Supraventricular tachycardia : Consider atria l tachycardia/flutter Left axis deviation Left bundle branch block Abnormal ECG Confirmed by ANTONIO TOVAR MD ([id number]), graphics editor AMIRA CASTRO ([id number]) on 10/02/2017 1:27:13 PM Referred By: BOZENA Confirme d By:ANTONIO TOVAR MD 10/02/17 5860 Date Antonio Tovar MD CC: Nia Uriostegui DO; Jignesh Tello MD Signed 02-Oct-2017 12 Lead Electrocardiogram Result: Comments: See Note; NOTES: [facility] Cardiovascular Services [address] [place] [address] 12 Lead EKG 09/29/17925 MR#: [id number] Acct: [id number] Name: COMFORT OLSON Rep # : [id number] : 1940 76 From: Antonio Tovar MD Attending Dr: Status: DEP ER Ordering Dr: Jignesh Tello MD Date: 09/29/17 Location: ED Sex: F C Admitted: Test Reason : REPEAT-POST CARDIZEM Bl ood Pressure : / mmHG Vent. Rate : 088 BPM Atrial Rate : 258 BPM P-R Int : 000 ms QRS Dur : 120 ms QT Int : 394 ms P-R-T Axes : 000 -38 160 degrees QTc Int : 476 ms Atrial flutter with variable A -V block Left axis deviation Anterior infarct , age undetermined Left bundle branch block Abnormal ECG Confirmed by ZARA ROSAS, ANTONIO ([id number]), graphics editor AMIRA CASTRO ([id number]) on 10/02/2017 1:26:27 PM Referr ed By: BOZENA Confirmed By:ANTONIO TOVAR MD 10/02/17 1326 Date Antonio Tovar MD CC: Nia Uriostegui DO; Jignesh Tello MD Signed 29-Sep-2017 Emergency Department Summary Result: Comments: See Note; NOTES: [facility] Medical Records Department [address] [place] [address] Emergency Department Summary 09/29/17911 MR#: [id number] Acct: [id number] Name: COMFORT OLSON Rep #: [id number] : 1940 76 From: Jignesh Tello MD PCP: Nia Uriostegui DO Status: DEP ER - ER Visit Summary Date of Service: 09/29/17 Chief Complaint: Palpitations History of Present Illness: The patient is a [address] Rahsid and Dr. Uriostegui. She reports that she is in atrial fibrillation again and that it started 2 days ago. She reports that her heart rates been as h igh as 160. She took an extra 100 mg of amiodarone 2 days ago and then again yesterday. She denies any chest pain. She does report that she is short of breath with exertion. Patient reports that she calix s had this multiple times in the past and has been cardioverted as recently as 1 month ago for this. She is on Eliquis. Her last dose was this morning. She has not missed any doses. Physical Examinatio n: Vitals: 98.4, 157/92, 127, 17, 95% on room air which is not hypoxic. General: Well-nourished and well-developed. Head: Normocephalic atraumatic. Neck: Supple, no lymphadenopathy. No JVD. Nontender. C ardiovascular: Tachycardic regular rhythm. No murmurs. Respiratory: No respiratory distress. Clear to auscultation bilaterally. Abdominal: Soft, nontender, nondistended, normal bowel sounds. No guarding , rebound, or peritoneal signs. Back: Nontender. Extremities: Nontender, no edema. Skin: Normal color, no rash. Neurologic: Alert and oriented 3. Cranial nerves II through XII are intact. Normal strengt h and sensation. Psych: Normal affect. Test Results: EKG shows atrial flutter at 129 with left bundle branch block. It is unchanged from August 24, 2017. CBC is normal. Chem-7 is marked for creatinine 1. 32 and glucose of 198. Troponin is 0.02. Chest x-ray shows atelectasis. Repeat EKG after cardioversion is sinus bradycardia with marked sinus arrhythmia at 45. No ischemic changes. Emergency Department Course and Treatment: Patient had an IV placed. She was given Cardizem IV. Her heart rate is decreased into the 80s. She is resting comfortably. Had a prolonged discussion with the patient about treatm ent options. She has been cardioverted multiple times in the past. After discussion with Dr. Rashid the patient was given 8 mg of etomidate and had synchronized cardioversion undertaken at 200 J. Ellen ng this she had a significant pause and then entered sinus bradycardia in the 30s-50s. She did maintain a pressure with this. She denied any chest pain with it. She is able to mentate appropriately. Th e patient reentered a sinus rhythm approximately 15 minutes after the cardioversion. She has been observed for over an hour and has remained in sinus rhythm throughout this. She is resting comfortably a nd has no complaint of chest pain, shortness of breath, or palpitations. Treatment Plan: Patient will be discharged instructions to increase her amiodarone from 100-200 mg a day. She will be scheduled to have an EKG and Dr. Rashid's office. Return to the emergency department for any worsening symptoms. Disposition: To home in improved and stable condition. Impression: 1. Atrial flutter. 2. Cardiover kash. 3. Procedural sedation. 4. Sinus bradycardia. This note was generated with [employer] dictation software. It may contain incorrect words, spelling, and punctuation that were not noted in review of the chart prior to signing ED Disposition - Plan for ED Patient: Chief Complaint: Palpitations Instructions: ED Paroxysmal Atrial Flutter Referrals: Jonel Rashid MD [STAFF PHYSICIAN] - Keep Juani appoi ntment Additional Instructions: Increase amiodarone to 200 mg once a day. What to do if you have Problems For any increased pain, shortness of breath, bleeding, nausea or vomiting, chest pain, or an y unexpected problems, contact your Primary Care Provider. Call [facility] ([phone]) or report to the closest Emergency Room. Call 911 if necessary. 09/29/17 5446 <Electronically si gned by Jignesh Tello MD> Date Jignesh Tello MD Cosigner Signature (If Indicated): Date CC: Nia Uriostegui DO 29-Sep-2017 Chest 1 View (Portable) Result: Comments: See Note; NOTES: [facility] Imaging Services [address] [place] [address] Chest 1 View (Portable) MR#: [id number] Acct: [id number] Name: COMFORT OLSON Rep #: [id number] : 1940 F 76 From: John Babcock MD PCP: Nia Uriostegui DO Status: REG ER Study: Chest 1 View (Portable) Date of Exam: 09/29/17 Exam# [id number] Ordering Dr: Jignesh Tello MD STUDY: X-RAY CHEST REASON FOR EXAM: Female, 76 years old. Chest pain. TECHNIQUE: Single AP portable view of the chest. COMPARISON: Comparison is made with prior study dated August 24, 2017. FINDINGS: EKG electrodes are seen. Mild increased linear markings at the left lung base suggestive of linear atelectasis. There is no demonstrated pleural abnormality. Sternal cerc gerardo wires and vascular clips are present from a prior sternotomy and coronary artery bypass graft procedure (CABG). Mild cardiomegaly. Normal mediastinum and emil. Normal visualized pulmonary arteries. Normal visualized aortic arch and descending thoracic aorta. Normal visualized thoracic spine. Normal visualized ribs, clavicles, and shoulders. There is no demonstrated abnormality of the visualized soft tissue structures of the upper abdomen. RAD/Chest 1 View (Portable) IMPRESSION: Mild linear increased markings at the left lung base sugges tive of linear atelectasis. Mild cardiomegaly. Prior CABG. Electronically Signed: John Babcock MD at 9:55 EDT Tel [phone], Service support , CC: Nia Uriostegui DO; Jignesh Tello MD Cooker Cleaner: Signed 25-Sep-2017 Cardiology Visit Report Result: Comments: See Note; NOTES: [facility] [address] [place] [address] OFFICE VISIT Date of Service: 09/25/17 MR#: [id number] Acct: [id number] Name: COMFORT OLSON p #: [id number] : 1940 Provider: Jonel Rashid MD Age/Sex: 76/F Location[place] [facility] Status: Signed HPI HPI Chief Complaint: Follow up Details: COMFORT OLSON, is a 76 F who presents to the office today for a follow-up visit. She is a lady with a history of coronary artery disease status post carotid bypass surgery in 2004 with a left internal mammary artery to the second diagonal vessel and left ante rior descending artery. She also has a history of atrial fibrillation with rapid ventricular response rate. She previously had a history of a meningioma and so it was not clear whether we could anticoag ulate her on not but after clearing with her neurosurgeon she has been put on Eliquis which she is tolerating. In April of this year she presented to the emergency room with atrial fibrillation with a r apid ventricular response rate and underwent urgent DC cardioversion. She has been on a lower dose of the amiodarone as well as the metoprolol which she has tolerated. She tells me that there is a recal l on her valsartan and she has stopped taking it and feels okay. She has had some shortness of breath with activity. In August of this year she was back in the emergency room with atrial flutter and after discussion with me she was DC cardioverted. She has remained on the Eliquis. She has had some shortness of breath but remains on her diuretics. She has had no dizziness or diaphoresis no near syncope o r syncope. Her physical exam today demonstrates clear lung castro regular rate and rhythm no pedal edema and normal blood pressure. Intake Vital Signs09/25/17 Height 5 ft 5 in 09/25/17 Weight: 206 lb 09/25/17 Body Mass Index (BMI) 34.2 09/25/17 Blood Pressure 132/74 09/25/17 Blood Pressure Location Lt brachial Intake Visit Reasons: 6 M FU Environmental Advisor Required: No Accompanied by: nonw Is patient in pain?: No Allergies No Known Allergies Allergy (Verified 09/25/17 10:04) Medications Albuterol IH (ProAir) [Proair Hfa (SP)Vent Pts] 2 puff INHALATION Q4H PRN PRN 08/24/17 [History Confirmed 09/25] Amiodarone HCl 100 mg PO DAILY 08/24/17 [History Confirmed 09/25/17] Atorvastatin Calcium [Lipitor] 40 mg PO QHS 08/24/17 [History Confirmed 09/25/17] Cholecalciferol (Vitamin D3) [Vitamin D3] 6,00 0 unit PO DAILY 08/24/17 [History Confirmed 09/25/17] Fluticasone/Salmeterol [Advair 250/50 Mcg Diskus] 1 puff INHALATION BID 08/24/17 [History Confirmed 09/25/17] Furosemide 40 mg PO QHS 08/24/17 [Hist ory Confirmed 09/25/17] Gabapentin [Neurontin] 100 mg PO BIDCM 08/24/17 [History Confirmed 09/25/17] Insulin Detemir [Levemir] 19 unit SQ QHS 08/24/17 [History Confirmed 09/25/17] Lansoprazole [Prevacid ] 30 mg PO DAILY 08/24/17 [History Confirmed 09/25/17] Linagliptin [Tradjenta] 5 mg PO DAILY 08/24/17 [History Confirmed 09/25/17] Metformin HCl 1,000 mg PO BID 08/24/17 [History Confirmed 09/25/17] Met hscopolamine [place] 5 mg PO BID 08/24/17 [History Confirmed 09/25/17] Metoprolol Tartrate 25 mg PO BID 08/24/17 [History Confirmed 09/25/17] Montelukast [Singulair] 10 mg PO DAILY 08/24/17 [History Con firmed 09/25/17] Nitroglycerin [Nitrostat] 0.4 mg SUBLINGUAL Q5M PRN 08/24/17 [History Confirmed 09/25/17] Potassium Chloride [Klor-Con] 20 meq PO DAILY 08/24/17 [History Confirmed 09/25/17] apixaban 5 mg tablet 5 mg PO BID #180 tab 09/25/17 [Rx Confirmed 09/25/17] magnesium oxide 400 mg tablet 400 mg PO QDAY tab 09/25/17 [History Confirmed 09/25/17] PFSH Medical History Other secondary pulmonary hypertension (Chronic) Cardiomyopathy in diseases classified elsewhere (Chronic) Other cerebral infarction (Chronic) Paroxysmal atrial fibrillation (Chroni c) Atrial enlargement, left (Chronic) Atherosclerotic heart disease of [place] coronary artery without angina pectoris (Chronic) HTN (hypertension) (Chronic) HLD (hyperlipidemia) (Chronic) Asthma (Chroni c) Surgical History ankle surgery (Resolved) History of tonsillectomy (Resolved) H/O: hysterectomy (Resolved) H/O brain surgery (Resolved) Presence of a ortocoronary bypass graft (Chronic) History of left heart catheterization (LHC) (Chronic) Family History Father CAD (coronary artery disease) Mother CAD (coronary artery disease) Brother CAD (coronary artery disease) Sister CAD (coronary artery disease) Myocardial infarction Social History Smoking Status: Never smoker alcohol intake: never substance use type: does not use diet: diabetic caffeine: Yes Type: tea, carbonated beverages what type of physical activity do you participate in: none seatbelt use: always do you feel safe at home: Yes ROS Const Const: Negative for fatigue, weakness, night sweats, excessive sweating, frequent falls, headache(s) or daytime sleepiness Eyes Eyes: Negative for loss of peripheral vision, transient loss of vision, blind spots, double vision or blurry vision ENT ENT: Negative for headache(s), dizziness, balance problems, Nosebleed/epistaxis, tongue swelling or lip swelling Cardio Chest Pain: No Palpitat ions: No Edema: None Muscle aches with walking: None Resp Respiratory: Positive for SOB with activity; negative for SOB at rest, SOB orthopnea\SOB lying down, Cough or paroxysmal nocturnal dyspnea GI GI : Negative nausea, vomiting, heartburn, black,tarry stools or bright, red blood in stools : Negative for hematuria Musc Musc: Negative for balance problems, muscle aches/ myalgia, muscle weakness o r joint pain Skin Skin: Negative non-healing lesions, unusual bruising or rash Neuro Neuro: Negative for weakness, frequent falls, headache(s), double vision, dizziness, lightheadedness, orthostatic sym ptoms, blurry vision or lack of coordination Ladarius Hematologic/Lymphatic: Negative for easy bruising or easy bleeding Endo Endo: Negative for fatigue, excessive sweating, cold intolerance, heat intoleran ce, increased thirst/drinking or hair loss Psych Psych: Negative for anxiety or depression Allergy Allergy/Immunology: Negative for throat swelling, Negative for tongue swelling, Negative for hives, Neg ative for rash, Negative for lip swelling Cardiology Exam Const Appearance: cooperative, healthy appearing, well developed, well groomed and no acute distress Nutritional Appearance: well nourished an d average body habitus Orientation: alert, awake and oriented x3 Head Head: normal to inspection, normocephalic and atraumatic Ears: hearing grossly normal bilaterally and external ears normal Nose: ext ernal nose normal, nasal mucous membranes and turbinates normal, nares normal, septum normal, no nasal discharge Face and Sinus: face symmetric Mouth: oral mucosae normal, tongue normal, oropharynx norm al and moist mucous membranes Teeth and gingiva: dentition normal Throat: posterior oropharynx normal, tonsils normal and uvula midline Eyes General: appearance normal, both eyes and all related structu res Eyelids: eyelids normal Conjunctivae: conjunctivae normal Pupils: PERRL, normal by confrontation and accommodation normal EOM: EOM intact bilaterally Neck Neck: normal visual inspection, trachea mid line and no JVD JVD: +5 Carotids: normal carotid upstroke and bounding pulses Chest Chest inspection: normal inspection of the chest, symmetric chest movement and normal respiratory effort Auscultation: Bilateral: Clear to Auscultation Cardio Palpation: normal PMI Rate: regular rate Rhythm: regular rhythm Heart sounds: S1 normal, S2 normal and normal, physiologic split S2; negative rub, gallop or murm ur GI GI: normal to inspection, soft, no hepatosplenomegaly and bowel sounds present Neuro General: alert, awake, oriented x3, no focal sensory deficit, gait normal and moves all extremities Skin Skin: no rashes or lesions noted Extremities Pulses: Normal: Right Femoral Pulse, Left Femoral Pulse, Right Dorsalis Pedis Pulse, Left Dorsalis Pedis Pulse, Right Posterior Tibial Pulse, Left Posterior Tibial Pulse, Right Radial Pulse, Left Radial Pulse Lower Extremity Edema: None: Bilateral Musculoskel Musculoskeletal: No joint tenderness Psych Psychological: normal affect Assessment AND Plan 1. Paroxysm al atrial fibrillation I48.0 Plan She does have a history of paroxysmal atrial fibrillation but currently appears to be maintaining sinus rhythm on her metoprolol and her amiodarone. We will continue to monitor the above carefully with no changes. 2. 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 My recommendation will be for us to repeat her echocardiogram to reassess her left ventricular function. In the meantime we will discontinue her valsartan as it is on recall and she has has some concerns about this. 3. Essential hypertension I10 Plan Her blood pressure appears to be under good control at this particular time she will remain on the beta-carolyn only without the valsartan. 4. Atherosclerosis of [place] coronary artery of [place] heart without angina pectoris I25.10 08/06/2004 CA BG x2 VILLAGRAN side to side to second Diagonal and end to side to Anterior Descending artery in Sequential fashion. [facility]: 08/01/2004; 10/15/2011 Plan She does have a history of coronary artery disease statu s post carotid bypass surgery 2 as described above. She has not had any angina and the plan will be to continue observing him on the current medications. Her last stress test was 3 years ago and did not demonstrate any ischemia. We will continue to pursue the same aggressive therapy. Orders Orders: 5. Mixed hyperlipidemia E78.2 Plan She does have a history of hyperlipidemia and remains on high intens ity statin. This would also be continued routine lipid and liver profile would also be obtained. Thank you for allowing me to participate in the care of your patient. 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 transplan joel heart: [place] heart Mixed hyperlipidemia E78.2 Hyperlipidemia type: mixed hyperlipidemia Coding Level of Care Code Off vis,est,level 4 Diagnoses Paroxysmal atrial fibrillation I48.0 Cardiomyopath y in diseases classified elsewhere I43 Essential hypertension I10 Hypertension type: essential hypertension Atherosclerosis of [place] coronary artery of [place] heart without angina pectoris I25.10 [place] vs. transplanted heart: [place] heart Mixed hyperlipidemia E78.2 Hyperlipidemia type: mixed hyperlipidemia 09/25/17 1029 <Electronically signed by Jonel Rashid MD> Date __ Jonel Rashid MD Cosigner Signature: Date (if applicable) CC: Nia Uriostegui DO 26-Aug-2017 12 Lead Electrocardiogram Result: Comments: See Note; NOTES: [facility] Cardiovascular Services [address] [facility] [place] [address] 12 Lead EKG 08/24/17 1336 MR#: [id number] Acct: [id number] Name: COMFORT OLSON Rep # : [id number] : 1940 76 From: Jonel Rashid MD Attending Dr: Status: DEP ER Ordering Dr: Alexis Kemp MD Date: 08/24/17 Location: ED Sex: F C Admitted: Test Reason : POST-CARDIOVERSION Blood Pressu re : / mmHG Vent. Rate : 075 BPM Atrial Rate : 075 BPM P-R Int : 186 ms QRS Dur : 120 ms QT Int : 426 ms P-R-T Axes : 057 -49 124 degrees QTc Int : 475 ms Normal sinus rhythm Left axis deviation Anterior infarct , age undetermined ST AND T wave abnormality, consider lateral ischemia Abnormal ECG Confirmed by JONEL RASHID MD ([id number]), graphics editor AMIRA CASTRO ([id number]) on 08/26/2017 1:37:24 PM Referred B y: YONI Confirmed By:JONEL RASHID MD 08/26/17 1337 Date Jonel Rashid MD CC: Nia Uriostegui DO; Alexis Kemp MD Signed 26-Aug-2017 12 Lead Electrocardiogram Result: Comments: See Note; NOTES: [facility] Cardiovascular Services [address] [place] [address] 12 Lead EKG 08/24/17 0956 MR#: [id number] Acct: [id number] Name: COMFORT OLSON Rep # : [id number] : 1940 76 From: Jonel Rashid MD Attending Dr: Status: DEP ER Ordering Dr: Alexis Kemp MD Date: 08/24/17 Location: ED Sex: F C Admitted: Test Reason : SOB Blood Pressure : / mm HG Vent. Rate : 132 BPM Atrial Rate : 132 BPM P-R Int : 120 ms QRS Dur : 128 ms QT Int : 348 ms P-R-T Axes : 000 -52 168 degrees QTc Int : 515 ms Atrial flutter with 2:1 block Left axis deviation Non-s pecific intra-ventricular conduction block T wave abnormality, consider lateral ischemia Abnormal ECG Confirmed by JONEL RASHID MD ([id number]), graphics editor AMIRA CASTRO ([id number]) on 08/26/2017 12:50:18 PM Referred By: YONI Confirmed By:JONEL RASHID MD 08/26/17 1250 Date Jonel Rashid MD CC: Nia Uriostegui DO; Alexis Kemp MD Signed 24-Aug-2017 Emergency Department Summary Result: Comments: See Note; NOTES: [facility] Medical Records Department [address] [place] [address] Emergency Department Summary 08/24/17 1336 MR#: [id number] Acct: [id number] Name: COMFORT OLSON Rep #: [id number] : 1940 76 From: Alexis Kemp MD PCP: Nia Uriostegui DO Status: REG ER - ER Visit Summary Date of Service: 08/24/17 Chief Complaint: Shortness of breath, rapid he art rate with history of A. fib History of Present Illness: The patient is a 76 F who presents because of rapid heart rate on pulse oximeter reading. She was unaware that her heart was going rapidly. S he states yesterday she felt more short of breath and she did Friday. Onset of the shortness was Friday. She denies dyspnea at rest and dyspnea with exertion. She also has a nonproductive cough. She mcallister s have one large pillow orthopnea which is unchanged. She denies PND. She denies increased swelling of her lower extremities. She denies any chest pain of any type. She denies any exertional chest disco mfort, jaw pain, neck pain or extremity pain. She has no other complaints. Physical Examination: Vital signs remarkable for heart rate 129 and blood pressure 149/91. Head is atraumatic normocephalic. P upils are equal round reactive. Extraocular muscles are intact. TMs are pearly white with landmarks noted. Nares patent with no drainage. Posterior pharynx without erythema or exudate. Uvula is midline. There is no dysphonia or dysphasia. Trachea is midline. There is no stridor with auscultation of the neck. Heart is rapid and regular without murmur, gallop or rub. Lungs reveal fine rales at the base. Abdomen is soft nontender with normal bowel sounds. There is 1+ edema the lower extremity's. There is no asymmetry, discoloration, leg vein distention, palpable cords test on the description deep venou s system. She is alert and oriented 3 with a nonfocal neurologic exam. Test Results: Portable chest x-ray reveals chronic changes with cardiomegaly no evidence of heart failure. EKG atrial flutter rate of 132. There is an intraventricular conduction delay. CBC unremarkable. Electro panels marked for glucose 171 and creatinine 1.21. Troponin with 48 hours of symptoms is less than 0.015. Emergency Dep artment Course and Treatment: To evaluate patient's dyspnea with known history of A. fib, coronary disease EKG, chest x-ray and blood work was obtained. Differential includes A. fib flutter, CHF, pulmon thelma etiology or anginal equivalent. Treatment Plan: Case was discussed with Dr. Jonel Rashid. He agrees patients in a flutter. Since patient is anticoagulated, Eliquis and has taken her dose of the last 24 hours will cardiovert. Patient was consented. She given opportunity ask questions. None were asked. He is been cardioverted twice in the past without any complications other than nausea on one occas ion. Patient received a total of 70 mg of propofol. She was cardioverted with 100 J. Total time for procedure 5 minutes Disposition: Discharged home in stable improved condition Impression: 1. Atrial flutter, rate 132 2. Dyspnea secondary #1 3. Cardioversion 4. Procedural sedation (5 minutes) 5. History of coronary disease This note was generated with My eStore Appation software. It may contain in correct words, spelling, and punctuation that were not noted in review of the chart prior to signing ED Disposition - Plan for ED Patient: Disposition: Home or Assisted Living Chief Complaint: Shortn ess of Breath Instructions: ED Paroxysmal Atrial Flutter Referrals: iNa Uriostegui DO [Primary Care Provider] - Jonel Rashid MD [STAFF PHYSICIAN] - 5-7 Days What to do if you have Problems For any increased pain, shortness of breath, bleeding, nausea or vomiting, chest pain, or any unexpected problems, contact your Primary Care Provider. Call [facility] ([phone]) or report to the [facility] Emergency Room. Call 911 if necessary. 08/24/17 1340 <Electronically signed by Alexis Kemp MD> Date Alexis Kemp MD Cosigner Signatu re (If Indicated): Date CC: Jonel Rashid MD; Nia Uriostegui DO 24-Aug-2017 Chest PA and Lateral Result: Comments: See Note; NOTES: [facility] Imaging Services [address] [place] [address] Chest PA and Lateral MR#: [id number] Acct: [id number] Name: COMFORT OLSON Rep #: [id number] : 1940 F 76 From: Clyde Matute MD PCP: Nia Uriostegui DO Status: REG ER Study: Chest PA and Lateral Date of Exam: 08/24/17 Exam# [id number] Ordering Dr: Alexis Kemp MD STUDY: X-RAY CHEST R LUDY FOR EXAM: Female, 76 years old. Irregular heart rhythm TECHNIQUE: PA and lateral views of the chest. COMPARISON: May 04, 2017 FINDINGS: There is hyperinfl ation of the lungs consistent with chronic obstructive lung disease (COPD). There is no demonstrated pleural abnormality. Sternal cerclage wires are present from a prior sternotomy. Moderate cardiac en largement. Normal mediastinum and emil. Normal visualized pulmonary arteries. Stable right-sided aortic arch There is an increased kyphosis of the thoracic spine. Compression fracture of the lower thor acic spine is stable. Normal visualized ribs, clavicles, and shoulders. There is no demonstrated abnormality of the visualized soft tissue structures of the upper abdomen. RAD/Chest PA and Lateral IMPRESSION: Degenerative changes, as described above. No demonstrated acute cardiopulmonary process. Electronically Signed: Clyde Matute MD 08/24 at 11:02 EDT , Service support , CC: Nia Uriostegui DO; Alexis Kemp MD Cooker Cleaner: Signed 02-Jun-2017 12 Lead EKG performed by [facility] Result: Comments: See Note; NOTES: [facility] [address] [place] [address] 12 Lead EKG performed by [facility] 06/02/17 1121 MR#: [id number] Acct: [id number] Name: COMFORT OLSON Rep #: [id number] : 1940 76 From: Annemarie BLOOD Attending Dr: Annemarie Parsons Status: DEP [facility] Ordering Dr: Annemarie Parsons Date: 06/02/17 Location: [facility] Sex: F C Admitted: BMS/12 Lead EKG performed by [facility] ECG Report Interpretation Sinus Rhythm -Intraventricular conduction defect and left axis -possible anterior fas cicular block consider ventricular hypertrophy. - Nonspecific T-abnormality. ABNORMAL Electronically signed on 06/04/2017 at 14:14 by Jonel Rashid 06/04/17 1415 Date Annemarie BLOOD CC: Nia Uriostegui DO Date Dictated: 06/02/171120 Date Transcribed: 06/02/171120 Cooker Cleaner: BARBY Signed 29-May-2017 Cardiology Visit Report Result: Comments: See Note; NOTES: [facility] [address] [place] [address] OFFICE VISIT Date of Service: 05/26/17 MR#: [id number] Acct: [id number] Name: COMFORT OLSON Re p #: [id number] : 1940 Provider: Annemarie Parsons Age/Sex: 76/F Location: [facility] Status: Signed HPI HPI Details: COMFORT OLSON, is a 76 F who presents to the office today for an urgent appointm ent for increased shortness of breath. She was in the office last week for SOB. Her HR was noted to be 31. We decreased her amiodarone and Metoprolol. She came back to the office 2 days later for a repe at EKG, Hr was in the 50's. Patient does have a history of coronary artery disease with bypass surgery in 2004. She had an VILLAGRAN [id number] to second diagonal and to anterior descending and septal fas hion. She also has a history of atrial fibrillation with RVR. She has not been on an antiarrhythmic until recently due to her asthma. She is not on an anticoagulant due to her history of meningioma. Pt was in the hospital in April for AF with RVR. She was did have a OLIVER cardioversion. She was not put on an anticoagulate d/t her history of meningioma. She was d/c home on amiodarone. She then presented back to the ER on 05/04 and was noted to be back into AF and underwent a urgent cardioversion. She call our office 10 days ago for increased SOB. She noted that her HR was 31. We had decreased her amio darone and metoprolol. Her HR 2 days later was in the 50s. She sts that she felt better on 05/16 when she came in for her EKG. She sts that all weekend she had felt more SOB. She did not feel that her ch est ache that she had did not feel as bad as previous but it was still noticeable. She felt SOB with any activity. She has been taking her BP and HR a home. Her HR was been as high as 88 and as low as 43. She has had lightheadedness/ dizziness more so in the morning. She is not aware of any palpitations. She does not have any edema. She has not had any near syncope/syncope. Int samina Vital Signs05/26/17 Height 5 ft 5 in 05/26/17 Weight: 200 lb 05/26/17 Body Mass Index (BMI) 33.3 Intake Visit Reasons: per Susi Environmental Advisor Required: No Accompanied by: NONE Is patient in pain?: N o Allergies No Known Allergies Allergy (Verified 05/26/17 15:11) Medications Aspirin E.C. [Ecotrin] 325 mg PO DAILY@0800 11/11/16 [History Confirmed 05/26/17] Cholecalciferol (Vitamin D3) [Vitamin D3] 2,000 unit PO DAILY 11/11/16 [History Confirmed 05/26/17] Fluticasone/Salmeterol [Advair 500-50 Diskus] 1 puff INHALATION BID 11/11/16 [History Confirmed 05/26/17] Lansoprazole 30 mg PO DAILY [History Confirmed 05/26/17] Linagliptin [Tradjenta] 5 mg PO DAILY 11/11/16 [History Confirmed 05/26/17] Methscopolamine [place] 5 mg PO BID 11/11/16 [History Confirmed 05/26/17] Montelukast Sodium [ Singulair] 10 mg PO DAILY 11/11/16 [History Confirmed 05/26/17] Nitroglycerin [Nitrostat] 0.4 mg SL DAILY PRN 11/11/16 [History Confirmed 05/26/17] Valsartan [Diovan] 320 mg PO DAILY 11/11/16 [History C onfirmed 05/26/17] Albuterol IH (ProAir) [Proair Hfa] 2 puff INHALATION Q4H PRN PRN 11/15/16 [History Confirmed 05/26/17] magnesium oxide 400 mg tablet 400 mg PO DAILY #30 tab 02/12/17 [Rx Confirmed ] potassium chloride ER 20 mEq tablet,extended release(part/cryst) 20 meq PO QDAY #30 tab 02/12/17 [Rx Confirmed 05/26/17] furosemide 40 mg tablet 40 mg PO BID #60 tab 02/19/17 [Rx Confirmed ] gabapentin 100 mg capsule 100 mg PO BIDCM cap 03/14/17 [History Confirmed 05/26/17] metformin 500 mg tablet 1,000 mg PO BID tab 03/14/17 [History Confirmed 05/26/17] Insulin Detemir [Levemir FlexPen ] 17 units SC QHS insuln.pen 04/23/17 [Rx Confirmed 05/26/17] amiodarone 200 mg tablet 200 mg PO QDAY #90 tab 05/18/17 [Rx Confirmed 05/26/17] atorvastatin 40 mg tablet 40 mg PO QHS #90 tab 05/18/17 [Rx Confirmed 05/26/17] metoprolol tartrate 25 mg tablet 25 mg PO BID #60 tab 05/26/17 [Rx Confirmed 05/26/17] Ejection fraction %: 35 to 39 PFSH Medical History Other secondary pulmonary hypertension (Chronic) Cardiomyopathy in diseases classified elsewhere (Chronic) Other cerebral infarction (Chronic) Paroxysmal atrial fibrillation (Chronic) A trial enlargement, left (Chronic) Atherosclerotic heart disease of [place] coronary artery without angina pectoris (Chronic) HTN (hypertension) (Chronic) HLD (hyperlipidemia) (Chronic) Asthma (Chronic) Surgical History ankle surgery (Resolved) History of tonsillectomy (Resolved) H/O: hysterectomy (Resolved) H/O brain surgery (Resolved) Presence of aortocoronary bypass graft (Chronic) History of left heart catheterization (LHC) (Chronic) Family History Father CAD (coronary artery disease) Mother CAD (coronary artery disease) Brother CAD (coronary artery d isease) Sister CAD (coronary artery disease) Myocardial infarction Social History Smoking Status: Never smoker alcohol intake: never substance use type: does not use diet: diabetic caffeine: Yes T ype: tea, carbonated beverages what type of physical activity do you participate in: none seatbelt use: always do you feel safe at home: Yes ROS Const Const: Positive for fatigue; negative for w eakness, fever(s) or headache(s) Eyes Eyes: Negative for blind spots, loss of peripheral vision or transient loss of vision ENT ENT: Positive for dizziness; negative for headache(s), tinnitus or Noseble ed/epistaxis Cardio Chest Pain: Yes Palpitations: No Edema: None Muscle aches with walking: None Resp Respiratory: Positive for SOB with activity; negative for SOB at rest, SOB orthopnea\SOB lying down or Cough GI GI: Negative nausea, vomiting, heartburn or vomiting blood/hematemesis : Negative for hematuria Musc Musc: Positive for muscle aches/ myalgia and muscle weakness Neuro Neuro: Positive f or dizziness and lightheadedness; negative for weakness, headache(s), near syncope, syncope or orthostatic symptoms [place] Hematologic/Lymphatic: Negative for easy bleeding Endo Endo: Positive for fatigue Cardiology Exam Const Appearance: cooperative, no acute distress and well developed Orientation: alert, awake and oriented x3 Head Head: normocephalic and atraumatic Mouth: moist mucous membranes Eye s General: appearance normal, both eyes and all related structures Conjunctivae: conjunctivae normal Pupils: PERRL EOM: EOM intact bilaterally Neck Neck: normal visual inspection, no lymphadenopathy and no JVD Carotids: Negative bruit Neck Mass: Negative Neck mass Chest Chest inspection: normal inspection of the chest and symmetric chest movement Auscultation: Bilateral: Clear to Auscultation Cardio P alpation: normal PMI Rate: bradycardic Rhythm: regular rhythm Heart sounds: S1 normal and S2 normal; negative rub, gallop or murmur GI GI: normal to inspection, soft, no hepatosplenomegaly and bowel arley nds present; negative tender Neuro General: alert, awake, oriented x3, CN's II- XI intact bilaterally and moves all extremities Extremities Pulses: Normal: Right Posterior Tibial Pulse, Left Posterior Ti bial Pulse, Right Radial Pulse, Left Radial Pulse Lower Extremity Edema: None: Bilateral Psych Psychological: normal affect Assessment AND Plan 1. Dyspnea on exertion R06.09 Plan - JEREMI Ramirez Patient is noted to have sinus bradycardia. Feel that her fatigue and shortness of breath is likely related to this. We will have her decrease her metoprolol to 25 mg twice a day. She will return next week for an EKG. 2. Atherosclerosis of [place] coronary artery of [place] heart without angina pectoris I25.10 08/06/2004 CABG x2 VILLAGRAN side to side to second Diagonal and end to side to Anterior [place] cending artery in Sequential fashion. [facility]: 08/01/2004; 10/15/2011 Plan - JEREMI Mcpherson . Patient has not had any symptoms of angina. We are adjusting her metoprolol for sinus bradycardia. We will continue to monitor. 3. Essential hypertension I10 Plan - JEREMI Mcpherson Blood pressure is adequately controlled however we are decreasing her metoprolol for her sinus bradycardia. 4. Mixed hyperlipidemia E78.2 Plan - JEREMI Mcpherson Recent lipid profile demonstrates total cholesterol 174, HDL 26 unable to calculate LDL due to elevated triglycerides which were 678. Her diabe sharla is being managed by her primary care doctor. 5. Paroxysmal atrial fibrillation I48.0 Plan - JEREMI Mcpherson Patient has not had any recurrence that she is aware of, she will continue with current dose of amiodarone. She will remain on her amiodarone will need to continue to monitor thyroid and hepatic panels closely in addition to pulmonary function test. Orders Orders: Plan Detail Othe r Orders Orders: Other Medications New: Discontinued: Additional Comments - JEREMI Mcpherson The above patient was discussed with Dr. Rashid, he agrees with plan of care. Thank you for allowing us to participate in patient's plan of care, if you have any questions please do not hesitate to call. This note was generated using a voice recognition system and there may be incorrect words, spelli ng or punctuation errors that were not noted when reviewing the office note prior to saving. Follow Up 1 Week (EKG) 04/16/18 (keep appt with [facility] TECHNICIAN) Coding Level of Care Code Off vis,est,level 4 Diagnos es Dyspnea on exertion R06.09 Atherosclerosis of [place] coronary artery of [place] heart without angina pectoris I25.10 [place] vs. transplanted heart: [place] heart Essential hypertension I10 Hypertension type: essential hypertension Mixed hyperlipidemia E78.2 Hyperlipidemia type: mixed hyperlipidemia Paroxysmal atrial fibrillation I48.0 Atrial fibrillation type: paroxysmal Coding Level of Care Code O ff vis,est,level 4 Diagnoses Dyspnea on exertion R06.09 Atherosclerosis of [place] coronary artery of [place] heart without angina pectoris I25.10 [place] vs. transplanted heart: [place] heart Essential hy pertension I10 Hypertension type: essential hypertension Mixed hyperlipidemia E78.2 Hyperlipidemia type: mixed hyperlipidemia Paroxysmal atrial fibrillation I48.0 Atrial fibrillation type: paroxysmal 05/28/17 1018 <Electronically signed by Annemarie BLOOD> Date Annemarie BLOOD 05/29/17 1417<Electronically si gned by Jonel Rashid MD> Cosigner Signature: Date (if applicable) Jonel Rashid MD CC: Nia Moody DO 26-May-2017 12 Lead EKG performed by BMS Result: Comments: See Note; NOTES: [facility] [address] [place] [address] 12 Lead EKG performed by BMS 05/26/17 1521 MR#: [id number] Acct: [id number] Name: COMFORT OLSON Rep #: [id number] : 1940 76 From: Annemarie BLOOD Attending Dr: Annemarie Parsons Status: DEP AMB Ordering Dr: Annemarie Parsons Date: 05/26/17 [place] [facility] Sex: F C Admitted: BMS/12 Lead EKG performed by BMS ECG Report Interpretation Marked sinus Bradycardia -Poor R-wave progression - nonspecific -consider old anterior infarct. -Nonspecific ST depression -Nondiagnostic. ABNORMAL Electronically signed on 05/27/2017 at 08:40 by Jonel Rashid 05/27/17 0841 Date Annemarie BLOOD CC: Nia Uriostegui DO Date Dictated: 05/26/17 1521 Date Transcribed: 05/26/171520 Cooker Cleaner: BARBY Signed 16-May-2017 Office Visit Report Result: Comments: See Note; NOTES: [facility] [address] [address] OFFICE VISIT Date of Service: 05/16/17 MR#: [id number] Acct: [id number] Patient: COMFORT OLSON Rep #: [id number] : 1940 Provider: Jonel Rashid MD Age/Sex: 76/F [place] [facility] Status: Signed Intake Intake Visit Reasons: EKG PER MMKasia Allergies No Known Allergies Allergy (Verified 05/14/17 10:24) Medications Aspirin E.C. [Ecotrin] 325 mg PO DAILY@0800 11/11/16 [History Confirmed 05/14/17] Cholecalciferol (Vitamin D3) [Vitamin D3] 2,000 unit PO DAILY 11/11/16 [History Confirmed 05/14/17] Flutic asone/Salmeterol [Advair 500-50 Diskus] 1 puff INHALATION BID 11/11/16 [History Confirmed 05/14/17] Lansoprazole 30 mg PO DAILY 11/11/16 [History Confirmed 05/14/17] Linagliptin [Tradjenta] 5 mg PO SON Y 11/11/16 [History Confirmed 05/14/17] Methscopolamine [place] 5 mg PO BID 11/11/16 [History Confirmed 05/14/17] Montelukast Sodium [Singulair] 10 mg PO DAILY 11/11/16 [History Confirmed 05/14/17] Nitr oglycerin [Nitrostat] 0.4 mg SL DAILY PRN 11/11/16 [History Confirmed 05/14/17] Valsartan [Diovan] 320 mg PO DAILY 11/11/16 [History Confirmed 05/14/17] Albuterol IH (ProAir) [Proair Hfa] 2 puff INHALAT ION Q4H PRN PRN 11/15/16 [History Confirmed 05/14/17] magnesium oxide 400 mg tablet 400 mg PO DAILY #30 tab 02/12/17 [Rx Confirmed 05/14/17] potassium chloride ER 20 mEq tablet,extended release(part/cry st) 20 meq PO QDAY #30 tab 02/12/17 [Rx Confirmed 05/14/17] furosemide 40 mg tablet 40 mg PO BID #60 tab 02/19/17 [Rx Confirmed 05/14/17] gabapentin 100 mg capsule 100 mg PO BIDCM cap 03/14/17 [History Confirmed 05/14/17] metformin 500 mg tablet 1,000 mg PO BID tab 03/14/17 [History Confirmed 05/14/17] Atorvastatin Calcium [Lipitor] 40 mg PO QHS #30 tab 04/23/17 [Rx Confirmed 05/14/17] Insulin Detemir [Levemir FlexPen] 17 units SC QHS insuln.pen 04/23/17 [Rx Confirmed 05/14/17] amiodarone 200 mg tablet 200 mg PO QDAY #60 tab 05/14/17 [Rx Confirmed 05/14/17] metoprolol tartrate 100 mg tablet 50 mg PO BID tab 05/14/17 [History Confirmed 05/14/17] Assessment AND Plan Orders Orders: Nursing Note During OV 05/14/17 pt HR was 31, Annemarie Parsons PA-C instructed pt to decrease Amiodarone to 200 m g po daily and decrease Toprol to 50 mg po twice daily. Pt denies chest discomfort, dizziness, however she is SOB with exertion. Ekg today shows Sinus Bradycardia 58 bpm. Annemarie Parsons PA-C reviewe d vitals and pt is to continue current medication therapy. 05/16/17 1650 <Electronically signed by Annemarie BLOOD> Date Eliel Mallory Signature: Date (if applicable) CC: Sarkis Orozco 16-May-2017 12 Lead EKG performed by BMS Result: Comments: See Note; NOTES: [facility] [address] [place] [address] 12 Lead EKG performed by BMS 05/16/174 MR#: [id number] Acct: [id number] Name: COMFORT OLSON Rep #: [id number] : 1940 76 From: Annemarie BLOOD Attending Dr: Gay ROSAS,Jonel Status: DEP AMB Ordering Dr: Annemarie Parsons Date: 05/16/17 [place] [facility] Sex: F C Adm itted: [facility]12 Lead EKG performed by BMS Sinus Bradycardia -Poor R-wave progression -may be secondary to pulmonary isease consider old anterior infarct. Rightward P/QRS axis and rota tion possible pulmonary disease. ABNORMAL 05/16/17 1650 <Electronically signed by Annemarie BLOOD> Date Annemarie BLOOD CC: Nia Uriostegui DO Date Dictated: 05/16/171043 Date Transcribed: 05/16/171043 Cooker Cleaner: MMKasia Signed 16-May-2017 12 Lead EKG performed by BMS Result: Comments: See Note; NOTES: [facility] [address] [place] [address] 12 Lead EKG performed by BMS 05/16/174 MR#: [id number] Acct: [id number] Name: FRITZ COMF[address] Lane Rep #: [id number] : 1940 76 From: Annemarie BLOOD Attending Dr: Jonel Rashid MD Status: DEP AMB Ordering Dr: Annemarie Parsons Date: 05/16/17 [place]: [facility] Sex: F C Adm itted: BMS/12 Lead EKG performed by [facility] ECG Report Interpretation Sinus Bradycardia -Poor R-wave progression -may be secondary to pulmonary disease conside r old anterior infarct. Rightward P/QRS axis and rotation -possible pulmonary disease. ABNORMAL Electronically signed on 05/17/2017 at 18:31 by Jonel Rashid 05/17/17 1834 Date Annemarie BLOOD CC: Nia Uriostegui DO Date Dictated: 05/16/17 1044 Date Transcribed: 05/16/17 1044 Cooker Cleaner: BARBY Signed 14-May-2017 Cardiology Visit Report Result: Comments: See Note; NOTES: [facility] [address] [place] [address] OFFICE VISIT Date of Service: 05/14/17 MR#: [id number] Acct: [id number] Name: COMFORT OLSON p #: [id number] : 1940 Provider: Annemarie Parsons Age/Sex: 76/F Location: [facility] Status: Signed HPI HPI Details: COMFORT OLSON, is a 76 F who presents to the office today for an urgent appointm ent for increased shortness of breath. Patient does have a hospital of coronary artery disease with bypass surgery in 2004. She had an VILLAGRAN [id number] to second diagonal and to anterior descending and septal fashion. She also has a history of atrial fibrillation with RVR. She has not been on an antiarrhythmic until recently due to her asthma. She is not on an anticoagulant due to her history of meni ngioma. Pt was in the hospital in April for AF with RVR. She was did have a OLIVER cardioversion. She was not put on an anticoagulate d/t her history of meningioma. She was d/c home on amiodarone. She th en presented back to the ER on 05/04 and was noted to be back into AF and underwent a urgent cardioversion. She sts that 05/10 she started to feel more SOB. She is SOB with any activity. She then notes th at she has a dull ache in her chest. She then lays down because of the ache and SOB. She notes that this is almost constant. She rates this discomfort as a 6- 7/10. It worsens with activity and improves with rest. It sometimes goes away. She does not feel that she has had recurrence of her AF. EKG today demonstrates marked sinus bradycardia with a heart rate of 31. Intake Vital Signs05/14/17 Height 5 ft 5 in Intake Visit Reasons: per MS Environmental Advisor Required: No Accompanied by: None Is patient in pain?: Yes (dull ache, mid sternal chest discomfort) Pain scale (1-10): 5 Allergies No Known Allergies Allergy (Verified 05/14/17 10:24) Medications Aspirin E.C. [Ecotrin] 325 mg PO DAILY@0800 11/11/16 [History Confirmed 05/14/17] Cholecalciferol (Vitamin D3) [Vitamin D3] 2,000 un it PO DAILY 11/11/16 [History Confirmed 05/14/17] Fluticasone/Salmeterol [Advair 500-50 Diskus] 1 puff INHALATION BID 11/11/16 [History Confirmed 05/14/17] Lansoprazole 30 mg PO DAILY 11/11/16 [History Confirmed 05/14/17] Linagliptin [Tradjenta] 5 mg PO DAILY 11/11/16 [History Confirmed 05/14/17] Methscopolamine [place] 5 mg PO BID 11/11/16 [History Confirmed 05/14/17] Montelukast Sodium [Singulair] 1 0 mg PO DAILY 11/11/16 [History Confirmed 05/14/17] Nitroglycerin [Nitrostat] 0.4 mg SL DAILY PRN 11/11/16 [History Confirmed 05/14/17] Valsartan [Diovan] 320 mg PO DAILY 11/11/16 [History Confirmed 05/28] Albuterol IH (ProAir) [Proair Hfa] 2 puff INHALATION Q4H PRN PRN 11/15/16 [History Confirmed 05/14/17] magnesium oxide 400 mg tablet 400 mg PO DAILY #30 tab 02/12/17 [Rx Confirmed 05/14/17] potas sium chloride ER 20 mEq tablet,extended release(part/cryst) 20 meq PO QDAY #30 tab 02/12/17 [Rx Confirmed 05/14/17] furosemide 40 mg tablet 40 mg PO BID #60 tab 02/19/17 [Rx Confirmed 05/14/17] gabapent in 100 mg capsule 100 mg PO BIDCM cap 03/14/17 [History Confirmed 05/14/17] metformin 500 mg tablet 1,000 mg PO BID tab 03/14/17 [History Confirmed 05/14/17] Atorvastatin Calcium [Lipitor] 40 mg PO QHS #30 tab 04/23/17 [Rx Confirmed 05/14/17] Insulin Detemir [Levemir FlexPen] 17 units SC QHS insuln.pen 04/23/17 [Rx Confirmed 05/14/17] amiodarone 200 mg tablet 200 mg PO QDAY #60 tab 05/14/17 [Rx Confir med 05/14/17] metoprolol tartrate 100 mg tablet 50 mg PO BID tab 05/14/17 [History Confirmed 05/14/17] Ejection fraction %: 45 to 49 PFSH Medical History Other secondary pulmonary hypertension (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 Engineer rosemarie) Cardiomyopathy in diseases classified elsewhere (Chronic) Other cerebral infarction (Chronic) Paroxysmal atrial fibrillation (Chronic) Atrial enlargement, left (Chronic) Atherosclerotic heart disea se of [place] coronary artery without angina pectoris (Chronic) HTN (hypertension) (Chronic) HLD (hyperlipidemia) (Chronic) Asthma (Chronic) Surgical History Presence of aortocoronary bypass graft ( ron) History of left heart catheterization (LHC) (Chronic) Family History Father CAD (coronary artery disease) Mother CAD (coronary artery disease) Brot her CAD (coronary artery disease) Sister CAD (coronary artery disease) Myocardial infarction Social History Smoking Status: Never smoker alcohol intake: never substance use type: does not use diet: diabetic caffeine: Yes Type: tea, carbonated beverages what type of physical activity do you participate in: none seatbelt use: always do you feel safe at home: Yes ROS Const Const: Positive f or weakness and fatigue; negative for fever(s) or headache(s) Eyes Eyes: Negative for blind spots, loss of peripheral vision or transient loss of vision ENT ENT: Negative for headache(s), dizziness, tin nitus or Nosebleed/epistaxis Cardio Chest Pain: No Palpitations: No Edema: None Muscle aches with walking: None Resp Respiratory: Positive for SOB with activity; negative for SOB at rest, SOB orthopnea\ SOB lying down or Cough GI GI: Negative nausea, vomiting, heartburn or vomiting blood/hematemesis : Negative for hematuria Musc Musc: Negative for muscle aches/ myalgia Neuro Neuro: Positive for we akness; negative for headache(s), dizziness, near syncope, syncope, lightheadedness or orthostatic symptoms Ladarius Hematologic/Lymphatic: Negative for easy bleeding Endo Endo: Positive for fatigue Cardi ology Exam Const Appearance: cooperative, no acute distress and well developed Orientation: alert, awake and oriented x3 Head Head: normocephalic and atraumatic Mouth: moist mucous membranes Eyes Genera l: appearance normal, both eyes and all related structures Conjunctivae: conjunctivae normal Pupils: PERRL EOM: EOM intact bilaterally Neck Neck: normal visual inspection, no lymphadenopathy and no JVD Carotids: Negative bruit Neck Mass: Negative Neck mass Chest Chest inspection: normal inspection of the chest and symmetric chest movement Auscultation: Bilateral: Clear to Auscultation Cardio Palpation : normal PMI Rate: bradycardic Rhythm: regular rhythm Heart sounds: S1 normal and S2 normal; negative rub, gallop or murmur GI GI: normal to inspection, soft, no hepatosplenomegaly and bowel sounds pres ent; negative tender Neuro General: alert, awake, oriented x3, CN's II-XI intact bilaterally and moves all extremities Extremities Pulses: Normal: Right Posterior Tibial Pulse, Left Posterior Tibial Pul se, Right Radial Pulse, Left Radial Pulse Lower Extremity Edema: None: Bilateral Psych Psychological: normal affect Assessment AND Plan 1. Paroxysmal atrial fibrillation I48.0 Plan - JEREMI Fuller Patient does have significant bradycardia today. She will decrease her amiodarone to once a day. If she remains on this long-term will need to continue to monitor her thyroid and hepatic panels closely in addition to her pulmonary function test and chest x-rays. She will decrease her metoprolol to 50 mg twice a day. She will call us if her symptoms do not improve. She will return on Friday for an EKG. Patient Instructions - JEREMI Mcpherson Decrease your amiodarone to 200 mg once a day Decrease your metoprolol to 50 mg (1/2 tab) twice a day You will return Friday for an EKG 2. Ath erosclerosis of [place] coronary artery of [place] heart without angina pectoris I25.10 08/06/2004 CABG x2 VILLAGRAN side to side to second Diagonal and end to side to Anterior Descending artery in Sequential fashion. [facility]: 08/01/2004; 10/15/2011 Plan - JEREMI Mcpherson Stable, from a cardiac standpoint patient does not have any symptoms of angina. We recommend that they continue with current aggress hannah medical management and risk factor modification. 3. Essential hypertension I10 Plan - JEREMI Mcpherson Blood pressure is well controlled on current medications, we do not recommend any anguiano ges at this time. 4. Mixed hyperlipidemia E78.2 Plan - JEREMI Mcpherson Recent lipid profile done during hospital day demonstrates that her triglycerides are elevated at 687 with a total choles terol 174 and HDL 26. She was started on atorvastatin during that visit. Will need to continue to monitor labs closely. Plan Detail Other Orders Orders: Other Medications Changed: Additional Comments - JEREMI Mcpherson The above patient was discussed with Dr. Rashid, he agrees with plan of care. Thank you for allowing us to participate in patient's plan of care, if you have any questions ple ase do not hesitate to call. This note was generated using a voice recognition system and there may be incorrect words, spelling or punctuation errors that were not noted when reviewing the office note prior to saving. Follow Up 05/14/17 (Return on Friday for an EKG) 05/14/17 (Can you get medical records from neurology, pt said she requested that they be faxed) Coding Level of Care Code Off vis,est ,level 4 Diagnoses Paroxysmal atrial fibrillation I48.0 Atherosclerosis of [place] coronary artery of [place] heart without angina pectoris I25.10 [place] vs. transplanted heart: [place] heart Essential hy pertension I10 Hypertension type: essential hypertension Mixed hyperlipidemia E78.2 Hyperlipidemia type: mixed hyperlipidemia Coding Level of Care Code Off vis,est,level 4 Diagnoses Paroxysmal atrial fibrillation I48.0 Atherosclerosis of [place] coronary artery of [place] heart without angina pectoris I25.10 [place] vs. transplanted heart: [place] heart Essential hypertension I10 Hypertension type: ess ential hypertension Mixed hyperlipidemia E78.2 Hyperlipidemia type: mixed hyperlipidemia 05/14/17 1718 <Electronically signed by Annemarie BLOOD> Date Annemarie BLOOD 05/14/17 1732<Electronically signed by Jonel Rashid MD> Cosigner Signature: Date (if applicable) Jonel Rashid MD CC: Nia Uriostegui DO 14-May-2017 12 Lead EKG performed by [facility] Result: Comments: See Note; NOTES: [facility] [address] [place] [address] 12 Lead EKG performed by [facility] 05/14/17 1104 MR#: [id number] Acct: [id number] Name: COMFORT OLSON Rep #: [id number] : 1940 76 From: Annemarie BLOOD Attending Dr: Annemarie Parsons Status: DEP [facility] Ordering Dr: Annemarie Parsons Date: 05/14/17 Location: [facility] Sex: F C Admitted: BMS/12 Lead EKG performed by [facility] Marked sinus Bradycardia -Intraventricular conduction defect -consider left entricular hypertrophy. -Lateral infarct -age undetermined. - -abnormality -Possible Inferior and lateral ischemia. ABNORMAL 05/15/17 1041 <Electronically signed by Annemarie BLOOD> Date M farhan BLOOD CC: Nia Uriostegui DO Date Dictated: 05/14/171103 Date Transcribed: 05/14/171103 Cooker Cleaner: BARBY Signed 14-May-2017 12 Lead EKG performed by [facility] Result: Comments: See Note; NOTES: [facility] [address] [place] [address] 12 Lead EKG performed by BMS 05/14/174 MR#: [id number] Acct: [id number] Name: COMFORT OLSON Rep #: [id number] : 1940 76 From: Annemarie BLOOD Attending Dr: Annemarie Parsons Status: DEP AMB Ordering Dr: Annemarie Parsons Date: 05/14/17 Location: [facility] Sex: F C Admitted: BMS/12 Lead EKG performed by [facility] ECG Report Interpretation Marked sinus Bradycardia -Intraventricular conduction defect -consider left ventricul ar hypertrophy. -Lateral infarct -age undetermined. - T-abnormality -Possible Inferior and lateral ischemia. ABNORMAL Electronically signed on 05/17/2017 at 18:31 by Jonel Rashid 05/17/17 1834 Date __ Annemarie BLOOD CC: Nia Uriostegui DO Date Dictated: 05/14/171103 Date Transcribed: 05/14/171103 Cooker Cleaner: BARBY Signed 09-May-2017 Office Visit Report Result: Comments: See Note; NOTES: [facility] [address] 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 [Ecotrin] 325 mg PO DAILY@0800 11/11/16 [History Confirmed 04/19/17] Cholecalciferol (Vitamin D3) [Vitamin D3] 2,000 unit PO DAILY 11/11/16 [History Confirmed 11/27] Fluticasone/Salmeterol [Advair 500-50 Diskus] 1 puff INHALATION BID 11/11/16 [History Confirmed 04/19/17] Lansoprazole 30 mg PO DAILY 11/11/16 [History Confirmed 04/19/17] Linagliptin [Tradjenta] 5 mg PO DAILY 11/11/16 [History Confirmed 04/19/17] Methscopolamine [place] 5 mg PO BID 11/11/16 [History Confirmed 04/19/17] Montelukast Sodium [Singulair] 10 mg PO DAILY 11/11/16 [History Confirmed 0 04/19/17] Nitroglycerin [Nitrostat] 0.4 mg SL DAILY PRN 11/11/16 [History Confirmed 04/19/17] Valsartan [Diovan] 320 mg PO DAILY 11/11/16 [History Confirmed 04/19/17] Albuterol IH (ProAir) [Proair Hfa] 2 puff INHALATION Q4H PRN PRN 11/15/16 [History Confirmed 05/04/17] magnesium oxide 400 mg tablet 400 mg PO DAILY #30 tab 02/12/17 [Rx Confirmed 04/19/17] potassium chloride ER 20 mEq tablet,extended rel ease(part/cryst) 20 meq PO QDAY #30 tab 02/12/17 [Rx Confirmed 04/19/17] furosemide 40 mg tablet 40 mg PO BID #60 tab 02/19/17 [Rx Confirmed 04/19/17] metoprolol tartrate 100 mg tablet 100 mg PO BID [History Confirmed 04/19/17] gabapentin 100 mg capsule 100 mg PO BIDCM cap 03/14/17 [History Confirmed 04/19/17] metformin 500 mg tablet 1,000 mg PO BID tab 03/14/17 [History Confirmed 04/19/17] A miodarone HCl [Cordarone] 200 mg PO BID #60 tab 04/23/17 [Rx] Atorvastatin Calcium [Lipitor] 40 mg PO QHS #30 tab 04/23/17 [Rx] Insulin Detemir [Levemir FlexPen] 17 units SC QHS insuln.pen 04/23/17 [Rx] Assessment AND Plan Orders Orders: Nursing Note Patient in for EKG S/P DCCV 05/04/17 IN ED. Patient reports that she has been feeling well the past couple days. EKG completed, appears to be in SR. EKG to be reviewed by Dr. Rashid. 05/09/17 1610 <Electronically signed by Jonel Rashid MD> Date Jonel Rashid MD Cosigner Signature: Date (if applicable) CC: Annemarie Seaman 09-May-2017 12 Lead EKG performed by [facility] Result: Comments: See Note; NOTES: [facility] [address] [place] [address] 12 Lead EKG performed by [facility] 05/09/17 1110 MR#: [id number] Acct: [id number] Name: COMFORT OLSON Rep #: [id number] : 1940 76 From: Jonel Rashid MD Attending Dr: Albert Kerr RN Status: DEP AMB Ordering Dr: Jonel Rashid MD Date: 05/09/17 [place] [facility] Sex: F C Admitted: [facility]/12 Lead EKG performed by [facility] Sinus Rhythm -Nonspecific QRS widening and anterior fascicular block. -Poor -wave progression -nonspecific -consider old anterior infarct. -Nonspecific T d epression -Nondiagnostic. ABNORMAL 05/09/17 1610 <Electronically signed by Jonel Rashid MD> Date Jonel Rashid MD CC: Nia Rice Date Dictated: 05/09/171109 Date Transcribed: 05/09/171109 Cooker Cleaner: CO Signed 09-May-2017 12 Lead EKG performed by B[facility] Result: Comments: See Note; NOTES: [facility] [address] [place] [address] 12 Lead EKG performed by [facility] 05/09/171109 MR#: [id number] Acct: [id number] Name: COMFORT OLSON Rep #: [id number] : 1940 76 From: Jonel Rashid MD Attending Dr: Albert Kerr RN Status: DEP AMB Ordering Dr: Jonel Rashid MD Date: 05/09/17 [place] [facility] Sex: F C Admitted: BMS/12 Lead EKG performed by [facility] ECG Report Interpretation Sinus Rhythm -Nonspecific QRS widening and anterior fascicular block. -Poor R-wave progression -nonspec ific -consider old anterior infarct. -Nonspecific ST depression -Nondiagnostic. ABNORMAL Electronically signed on 05/17/2017 at 18:31 by Jonel Rashid 05/17/17 1834 Date Jonel Rashid MD CC: Nia Uriostegui DO Date Dictated: 05/09/171109 Date Transcribed: 05/09/171109 Cooker Cleaner: CO Signed 06-May-2017 12 Lead Electrocardiogram Result: Comments: See Note; NOTES: [facility] Cardiovascular Services [address] [place] [address] 12 Lead EKG 05/04/172236 MR#: [id number] Acct: [id number] Name: COMFORT OLSON Rep # : [id number] : 1940 76 From: Jonel Rashid MD Attending Dr: Status: DEP ER Ordering Dr: Natalya Napoles MD Date: 05/04/17 Location: ED Sex: F C Admitted: Test Reason : REPEAT Blood Pressure : */ mmHG Vent. Rate : 077 BPM Atrial Rate : 077 BPM P-R Int : 198 ms QRS Dur : 128 ms QT Int : 408 ms P-R-T Axes : 045 -40 152 degrees QTc Int : 461 ms Normal sinus rhythm Left axis deviation Non-spe cific intra-ventricular conduction block T wave abnormality, consider lateral ischemia Abnormal ECG Confirmed by JONEL RASHID MD ([id number]), graphics editor AMIRA CASTRO ([id number]) on 05/06/2017 1:42:52 PM Referred By: DONY Confirmed By:JONEL RASHID MD 05/06/17 1342 Date Jonel Rashid MD CC: Natalya Napoles MD; Nia Uriostegui DO Signed 06-May-2017 12 Lead Electrocardiogram Result: Comments: See Note; NOTES: [facility] Cardiovascular Services [address] [place] [address] 12 Lead EKG 05/04/172044 MR#: [id number] Acct: [id number] Name: COMFORT OLSON Rep # : [id number] : 1940 76 From: Jonel Rashid MD Attending Dr: Status: DEP ER Ordering Dr: Natalya Napoles MD Date: 05/04/17 Location: ED Sex: F C Admitted: Test Reason : PALPITATIONS Blood Pressur e : / mmHG Vent. Rate : 129 BPM Atrial Rate : 104 BPM P-R Int : 000 ms QRS Dur : 126 ms QT Int : 346 ms P-R-T Axes : 000 107 242 degrees QTc Int : 506 ms Atrial fibrillation Non-specific intra-ve ntricular conduction block T wave abnormality, consider inferior ischemia Abnormal ECG Confirmed by JONEL RASHID MD ([id number]), graphics editor AMIRA CASTRO ([id number]) on 05/06/2017 1:08:29 PM Referred By: RICKY NAPOLES Confirmed By:JONEL RASHID MD 05/06/17 1308 Date Jonel Rashid MD CC: Natalya Napoles MD; Nia Moody DO Signed 04-May-2017 Emergency Department Summary Result: Comments: See Note; NOTES: [facility] Medical Records Department [address] [place] [address] Emergency Department Summary 05/04/17 2259 MR#: [id number] Acct: [id number] Name: COMFORT OLSON Rep #: [id number] : 1940 76 From: Natalya Napoles MD PCP: Nia Uriostegui DO Status: REG ER - ER Visit Summary Date of Service: 05/04/17 Chief Complaint: Heart racing, shortness of breath History of Present Illness: The patient is a 76 F with a history of paroxysmal atrial fibrillation. Patient was admitted April 19 for A. fib/flutter with RVR. She was difficult to control on medications and was cardioverted prior to discharge. Patient states that she did not feel well around 4 AM this morning. She took her pulse at home throughout the day today and noted it to be in the 120s. Patient did take an extra dose of her metoprolol this morning without improvement. Patient is not on anticoagulants secondary to a prior meningioma removal. Patient reports having some chest tight ness and shortness of breath while she was walking up the hill from the parking area into the emergency room. While sitting at rest at this time she denies shortness of breath or chest pain. Physical E xamination: Vital signs reveal blood pressure 152/85, temperature 97.0, heart rate 124, respiratory rate 23, pulse ox 99% on room air. Patient sitting upright in bed no acute distress. Head neck examina tion is unremarkable. Heart is irregular and tachycardic. Lung sounds are clear. Abdomen is soft and nontender. Extremity examination reveals equal palpable pulses throughout. Test Results: EKG is A. f ib at 129. Intraventricular conduction delay is noted. Portable chest x-ray is unremarkable. CBC is significant only for hemoglobin 11.9. Chemistry studies reveal glucose of 184, BUN 22, creatinine 1.26 . Troponin is less than 0.02. Emergency Department Course and Treatment: Because the patient is known to be difficult to control with medications, I spoke with Dr. Rashid early in the patient's course. He asked that we give the patient is single dose of Lovenox and electively cardiovert her here in the emergency room. Patient was given Lovenox and 1 hour later was consented for procedural sedation and cardioversion. She was given 4 mg of IV etomidate and synchronized cardioversion was performed at 200 J 1 shock. Patient converted to sinus rhythm. She awoke from sedation without difficulty. She has e qual strength and sensation throughout without complaint. Patient has been observed to period of 1 hour after her cardioversion is remained stable and in sinus rhythm. She be discharged to home at this time. Treatment Plan: [] Disposition: Discharge Impression: 1. A. fib RVR 2. Electrical cardioversion by ED physician This note was generated with [email or web address] dictation software. It may contain incorre ct words, spelling, and punctuation that were not noted in review of the chart prior to signing ED Disposition - Plan for ED Patient: Chief Complaint: Palpitations Referrals: Nia Uriostegui DO [[facility] Provider] - What to do if you have Problems For any increased pain, shortness of breath, bleeding, nausea or vomiting, chest pain, or any unexpected problems, contact your Primary Care Pro vider. Call [facility] ([phone]) or report to the closest Emergency Room. Call 911 if necessary. 05/04/17 3374 <Electronically signed by Natalya Napoles MD> Date Natalya Napoles MD Cosigner Signature (If Indicated): Date CC: Nia Uriostegui DO 04-May-2017 Discharge Instruction Result: Comments: See Note; NOTES: [facility] Medical Records Department [address] [place] [address] Discharge Instruction 05/04/17 2340 MR#: [id number] Acct: [id number] Name: Liyah OLSON Rep #: [id number] : 1940 76 From: Natalya Napoles MD PCP: Nia Uriostegui DO Status: REG ER ED Disposition - Plan for ED Patient: Disposition: Home or Assisted Living Chief Complaint: P alpitations Instructions: ED Afib, ED Cardioversion Electrical Referrals: Nia Uriostegui DO [Primary Care Provider] - Jonel Rashid MD [STAFF PHYSICIAN] - Keep [facility] appointment What to do if you have Problems For any increased pain, shortness of breath, bleeding, nausea or vomiting, chest pain, or any unexpected problems, contact your Primary Care Provider. Call [facility] [employer] [facility] ([phone]) or report to the closest Emergency Room. Call 911 if necessary. 05/04/172340 <Electronically signed by Natalya Napoles MD> Date Natalya mary MD Cosigner Signature (If Indicated): Date CC: Nia Uriostegui DO 04-May-2017 Chest 1 View (Portable) Result: Comments: See Note; NOTES: [facility] Imaging Services [address] [place] [address] Chest 1 View (Portable) MR#: [id number] Acct: [id number] Name: COMFORT OLSON Rep #: [id number] : 1940 F 76 From: Rafael Perez MD PCP: Nia Uriostegui DO Status: REG ER Study: Chest 1 View (Portable) Date of Exam: 05/04/17 Exam# [id number] Ordering Dr: Natalya Napoles MD STUDY: X -RAY CHEST REASON FOR EXAM: Female, 76 years old. Atrial fibrillation TECHNIQUE: Single AP portable view of the chest. COMPARISON: Chest x-ray 04/19/2017, CT scan 11/13/2016. FINDINGS: The lungs are clear and expanded. There is no demonstrated pleural abnormality. Mild cardiomegaly status post CABG. Again seen is a right aortic arch and tortuous aorta. Normal v isualized thoracic spine. Normal visualized ribs, clavicles, and shoulders. There is no demonstrated abnormality of the visualized soft tissue structures of the upper abdomen. RAD/Chest 1 View (Portable) IMPRESSION: No acute chest disease. Stable mild cardiomegaly. Electronically Signed: Rafael Perez MD at 21:43 EDT Tel , Service support , CC: Natalya Napoles MD; Nia Uriostegui DO Cooker Cleaner: Signed 19-Apr-2017 Emergency Department Summary Result: Comments: See Note; NOTES: [facility] Medical Records Department [address] [place] [address] Emergency Department Summary 04/19/17 1757 MR#: [id number] Acct: [id number] Name: COMFORT OLSON Rep #: [id number] : 1940 76 From: Deisi Ryan MD PCP: Nia Uriostegui DO Status: REG ER - ER Visit Summary Date of Service: 04/19/17 Chief Complaint: Palpitations History o f Present Illness: The patient is a 76 F presenting with palpitations and intermittent chest tightness. She states she took her pulse at home and it was in the 130s. She called Dr. Rashid and was advised to take an extra dose of metoprolol. She normally takes metoprolol 100 mg twice daily. She states she was advised to come to the ED if this did not improve. Her heart rate remains in the 130s. She stat es she has a history of paroxysmal A. fib. Her last episode of A. fib was approximately 3 years ago. She is not on blood thinners secondary to previous brain surgery. Physical Examination: Vitals are s table. Patient is afebrile. Alert no acute distress. HEENT exam is unremarkable. Neck is supple. Lungs are clear and equal bilaterally. Heart is irregular and tachycardic Abdomen is soft nontender nondi stended. Extremities symmetric edema Skin is warm and dry. No focal neurologic deficit. Remainder of exam is unremarkable. Emergency Department Course and Treatment: She was given aspirin on arrival. EKG shows A. fib with RVR. Chest x-ray shows no acute process. CBC is normal. Chemistries show glucose 173, BUN 29, creatinine 1.16. Troponin is indeterminate 0.14. She was given Cardizem IV. Repeat hea rt rate is 94. Discussed with Dr. Rashid and the hospitalist. Patient will be admitted to telemetry. Disposition: Observation Impression: A. fib with RVR This note was generated with [facility] software. It may contain incorrect words, spelling, and punctuation that were not noted in review of the chart prior to signing ED Disposition - Plan for ED Patient: Chief Complaint: Palpitations Referrals: Nia Uriostegui, [Primary Care Provider] - What to do if you have Problems For any increased pain, shortness of breath, bleeding, nausea or vomiting, chest pain, or any unexpected pro blems, contact your Primary Care Provider. Call [employer] [facility] ([phone]) or report to the closest Emergency Room. Call 911 if necessary. 04/19/171930 <Electronically signed by Deisi moscoso MD> Date Deisi Ryan MD Cosigner Signature (If Indicated): Date CC: Nia Uriostegui DO 19-Apr-2017 Chest 1 View (Portable) Result: Comments: See Note; NOTES: [facility] Imaging Services [address] [place] [address] Chest 1 View (Portable) MR#: [id number] Acct: [id number] Name: COMFORT OLSON Rep #: [id number] : 1940 F 76 From: Thanh Ambriz MD PCP: Nia Uriostegui DO Status: PRE ER Study: Chest 1 View (Portable) Date of Exam: 04/19/17 Exam# [id number] Ordering Dr: Deisi Ryan MD STUDY: X- RAY CHEST REASON FOR EXAM: Female, 76 years old. Tachycardia TECHNIQUE: Frontal view of the chest COMPARISON: X-ray dated 11/11/2016 FINDINGS: The lungs are clear . There are no pleural effusions. There is no pneumothorax. The heart is normal in size. Again noted is tortuosity of the aorta. The visualized osseous structures are within normal limits. The patient is status post sternotomy. 0051 RAD/Chest 1 View (Portable) IMPRESSION: No acute thoracic pathology. Electronically Signed: Thanh Ambriz, at 17:53 EST Tel , Service support , CC: Deisi Ryan MD; Nia Uriostegui DO Cooker Cleaner: Signed 14-Mar-2017 Cardiology Visit Report Result: Comments: See Note; NOTES: [facility] [address] [place] [address] OFFICE VISIT Date of Service: 03/14/17 MR#: [id number] Acct: [id number] Name: COMFORT OLSON Re p #: [id number] : 1940 Provider: JOSSELYN Lombardo Age/Sex: 76/F Location[place] [facility] [place]: Signed HPI 3 M FU: Details: COMFORT OLSON, is a 76 F who presents to the office today for a cardiovascular o utpatient follow-up. Patient is a history of coronary artery disease status post bypass surgery in 2004 with VILLAGRAN to the LAD and second diagonal vessel, paroxysmal atrial fibrillation, cardiomyopathy, h ypertension, and hyperlipidemia. Pt. denies chest, arm, jaw, or neck discomfort. Her exercise tolerance is stable via bicycling though limiting d/t knee pain. Pt. denies symptoms of CHF, palpitations, lightheadedness, dizziness, near syncope, or syncopal episodes. Pt. denies edema or claudication issues. Pt. denies orthopnea, PND, fever, chills, blood in urine, blood in stool, myalgia, or unexplainab le fatigue. Echocardiogram from February 2017 showed an ejection fraction of 35% and mild mitral valve insufficiency. Heart catheterization from November 18, 2016 showed left main with 30% stenosis, tota lly occluded mid LAD, first diagonal with 75% stenosis, circumflex with less than 30% stenosis, OM1 with 75% stenosis and RCA with less than 30% stenosis. 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 Dual antiplatelet therapy was not recommended due to previous history of brain surgery for meningioma. Medical management was recommended and patients aspirin was increased. Intake Vital Signs03/14/17 Height 5 ft 5 in 03/14/17 Weight: 194 lb 03/14/17 Body Mass Index (BMI) 32.3 03/14/17 Blood Pressure 150/90 03/14/17 Blood Pressure Location Lt brachial Intak e Visit Reasons: 3 M FU Environmental Advisor Required: No Accompanied by: None Is patient in pain?: No Allergies No Known Allergies Allergy (Verified 03/14/17 10:06) Medications Aspirin E.C. [Ecotrin] 325 mg PO DAILY@0800 11/11/16 [History Confirmed 02/28/17] Cholecalciferol (Vitamin D3) [Vitamin D3] 2,000 unit PO DAILY 11/11/16 [History Confirmed 02/28/17] Fluticasone/Salmeterol [Advair 500-50 Diskus] 1 puff INHALATION BID 11/11/16 [History Confirmed 11/22/16] Lansoprazole 30 mg PO DAILY 11/11/16 [History Confirmed 02/28/17] Linagliptin [Tradjenta] 5 mg PO DAILY 11/11/16 [History Confirmed 02/28/17] M ethscopolamine [place] 5 mg PO BID 11/11/16 [History Confirmed 02/28/17] Montelukast Sodium [Singulair] 10 mg PO DAILY 11/11/16 [History Confirmed 02/28/17] Nitroglycerin [Nitrostat] 0.4 mg SL DAILY PRN 11/11/16 [History Confirmed 02/28/17] Valsartan [Diovan] 320 mg PO DAILY 11/11/16 [History Confirmed 02/28/17] Albuterol IH (ProAir) [Proair Hfa (SP)Vent Pts] 2 puff INHALATION Q4H PRN PRN 11/15/16 [Hi story Confirmed 11/22/16] magnesium oxide 400 mg tablet 400 mg PO DAILY #30 tab 02/12/17 [Rx Confirmed 02/28/17] potassium chloride ER 20 mEq tablet,extended release(part/cryst) 20 meq PO QDAY #30 tab 0 02/12/17 [Rx Confirmed 02/28/17] furosemide 40 mg tablet 40 mg PO BID #60 tab 02/19/17 [Rx Confirmed 02/28/17] metoprolol tartrate 100 mg tablet 100 mg PO BID 02/28/17 [History Confirmed 02/28/17] diltia zem CD 120 mg capsule,extended release 24 hr 120 mg PO QDAY 03/14/17 [History Confirmed 03/14/17] gabapentin 100 mg capsule 100 mg PO BIDCM cap 03/14/17 [History Confirmed 03/14/17] metformin 500 mg tab let 1,000 mg PO BID tab 03/14/17 [History Confirmed 03/14/17] Ejection fraction %: 35 to 39 PFSH Medical History Other secondary pulmonary hypertension (Chronic) Cardiomyopathy in diseases classifie d elsewhere (Chronic) Other cerebral infarction (Chronic) Paroxysmal atrial fibrillation (Chronic) Atrial enlargement, left (Chronic) Atherosclerotic heart disease of [place] coronary artery without cynthia na pectoris (Chronic) HTN (hypertension) (Chronic) HLD (hyperlipidemia) (Chronic) Asthma (Chronic) Surgical History Presence of aortocoronary bypass graft (Chronic) History of left heart catheterizat ion (LHC) (Chronic) Family History Father CAD (coronary artery disease) Mother CAD (coronary artery disease) Brother CAD (coronary artery disease) Sister CAD (coronary artery disease) Myocardial infar ction Social History Smoking Status: Never smoker alcohol intake: never substance use type: does not use diet: diabetic caffeine: Yes Type: tea, carbonated beverages what type of physical activit y do you participate in: none seatbelt use: always do you feel safe at home: Yes ROS Const Const: Negative for weakness, body ache, fever(s), chills or fatigue ENT ENT: Negative for dizziness Car geoffrey Chest Pain: No Palpitations: Positive for No Edema: None Muscle aches with walking: None Resp Respiratory: Negative for SOB with activity, SOB at rest, SOB orthopnea\SOB lying down or paroxysmal noc turnal dyspnea GI GI: Negative nausea, black,tarry stools, bright, red blood in stools or vomiting blood/hematemesis : Negative for hematuria or frequent nighttime urination/ nocturia Musc Musc: Ne gative for muscle aches/ myalgia Neuro Neuro: Negative for lightheadedness, Negative for near syncope, Negative for syncope, Negative for orthostatic symptoms, Negative for weakness, Negative for dizzin ess Endo Endo: Negative for fatigue Cardiology Exam Const Appearance: cooperative, healthy appearing, comfortable and no acute distress Orientation: alert, awake and oriented x3 Head Head: normal to i nspection Mouth: oral mucosae normal Neck Neck: no JVD and normal visual inspection Carotids: normal carotid upstroke Chest Chest inspection: normal inspection of the chest and normal respiratory effort Auscultation: Bilateral: Clear to Auscultation Cardio Rate: regular rate Rhythm: regular rhythm Heart sounds: murmur (LLSB systolic murmur); negative rub or gallop Murmur: Grade 2/6 GI GI: normal to in spection Neuro General: alert, awake, oriented x3 and CN's II-XI intact bilaterally Skin Skin: no rashes or lesions noted Extremities Pulses: Normal: Right Posterior Tibial Pulse, Left Posterior Tibial Pulse, Right Radial Pulse, Left Radial Pulse Lower Extremity Edema: None: Bilateral Psych Psychological: normal affect Assessment AND Plan 1. Essential hypertension I10 Plan - SEEMA Spence t's blood pressures on the higher end today. She was asked to monitor her blood pressure over the next 2 or 3 weeks and contact our office with a blood pressure reading update. She states most recently that her calcium channel carolyn was reduced due to lightheadedness and low heart rate. Depending on her average blood pressure readings further recommendations will be made. 2. Cardiomyopathy in disea ses classified elsewhere I43 Plan - SEEMA Spence Patient's most recent echocardiogram showed an improved ejection fraction from 25% to 35%. Patient's activity level has been stable. Hopefully her b lood pressure and heart rate remain stable, which allows for continual up titration of medication to help for this. We will continue to monitor this while we wait for updated BP readings. 3. Atheroscle rosis of [place] coronary artery of [place] heart without angina pectoris I25.10 08/06/2004 CABG x2 VILLAGRAN side to side to second Diagonal and end to side to Anterior Descending artery in Sequential fashion . [facility]: 08/01/2004; 10/15/2011 Plan - SEEMA Spence Patient's most recent heart catheterization is noted above. Patient denies any chest pain, arm pain, jaw pain, neck pain, shortness of breath, or fatigue suggestive of angina at this time. We will continue to monitor this. We will not make any medication regimen changes and will continue risk factor modification. 4. Paroxysmal atrial fibrillatio n I48.0 Plan - SEEMA Spence Patient appears to be maintaining a regular rhythm. She is not on oral anticoagulation given her history of brain surgery and meningioma. Her heart rate is well-controll ed today in office. We will continue current medications which include rate controlling and aspirin. 5. Mixed hyperlipidemia E78.2 Plan - SEEMA Spence Patient is not on any cholesterol lowering me dication. She states this is being monitored by primary care physician and is scheduled for repeat evaluation in the near future. Plan Detail Other Medications New: Discontinued: Additional Comments - SEEMA Spence Discussed the above patient with Dr. Rashid, he agrees with the plan of care. Thank you for allowing us to participate in the patients plan of care, if you have any questions please d o not hesitate to call. This note was generated using a voice recognition system and there may be incorrect words, spelling or punctuation that were not noted when reviewing the office note prior to sa racquelg. 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 transplanted heart: [place] heart Paroxysmal atrial fibrillation I48.0 Mixed hyperlipidemia E7 8.2 Hyperlipidemia type: mixed hyperlipidemia Coding Level of Care Code Off vis,est,level 3 Diagnoses Essential hypertension I10 Hypertension type: essential hypertension Cardiomyopathy in diseases c lassified elsewhere I43 Atherosclerosis of [place] coronary artery of [place] heart without angina pectoris I25.10 [place] vs. transplanted heart: [place] heart Paroxysmal atrial fibrillation I48.0 Mixed hy perlipidemia E78.2 Hyperlipidemia type: mixed hyperlipidemia 03/14/17 1154 <Electronically signed by Richard Lombardo WEIGHT TESTER-C> Date Richard Lombardo WEIGHT TESTER-C 03/14/17 1527<Electronically signed by Jonel Rashid MD> Cosigner Signature: Date (if applicable) Jonel Rashid MD CC: Nia Uriostegui DO 10-Mar-2017 Echo, Complete w/ Contrast Result: Comments: See Note; NOTES: [facility] Cardiovascular Services [address] [place] [address] Echo Complete W/ Contrast 03/10/17 1008 MR#: [id number] Acct: [id number] Name: COMFORT JONES Rep #: [id number] : 1940 76 From: Jonel Rashid MD Attending Dr: Gay ROSAS,Jonel Status: REG CLI Ordering Dr: Jonel Rashid MD Date: 03/10/17 Location: [facility] Sex: F C Admitted: Reason Fo r Study: Cardiomyopathy Procedure This was a 2D Doppler, Color Flow transthoracic echocardiogram. Exam performed in department. Left Ventricle Normal LV size. Mild concentric left ventricular hypertro phy. Moderately severe global left ventricular systolic dysfunction. The estimated ejection fraction is 35 %. There is moderate to severe global hypokinesis of the left ventricle. Right Ventricle Rina l RV size. Normal systolic function. Atria The left atrium is mildly enlarged. Normal right atrium. Bubble contrast study negative for right to left interatrial shunt. Mitral Valve There is mild to mo derate mitral annular calcification. Mild (1+) eccentric mitral valve insufficiency. Tricuspid Valve Normal tricuspid valve. Mild (1+) tricuspid valve insufficiency. Aortic Valve Trisinus/trileaflet ao rtic valve. Pulmonic Valve The pulmonic valve is not well visualized. Great Vessels Normal aortic root. The pulmonary artery is normal size. Normal inferior vena cava. Pericardium/Pleural No pericard ial effusion. Medication 22 gauge I.V. with prn adaptor inserted into right arm. Diluted definity 2ml given slow IV push to enhance endocardial definition. MMode/2D Measurements AND Calculations LVIDd: 4.6 cm IVSd: 1.2 cm Ao root diam: 3.3 cm LVIDs: 4.0 cm LVPWd: 1.5 cm LA dimension: 4.1 cm RVDd: 3.6 cm FS: 13.7 % LAV(M OD-bp): 84.4 ml LAV(MOD-bp) Indexed: 43.6 ml/m2 LA A4 area: 23.5 cm2 RA A4 area: 16.2 cm2 LAV(MOD-sp2): 89.6 ml LAV(MOD-sp4): 74.9 ml Time Measurements MV dec time: 0.25 sec Doppler Measurements AND C alculations MV E max angie: 68.5 cm/sec Lat Peak E' Angie: 9.0 cm/sec Med Peak E' Angie: 3.6 cm/sec MV A max angie: 98.1 cm/sec E/E' lat: 7.6 E/E' med: 18.9 MV E/A: 0.70 MV V2 max: 122.1 cm/sec MV P1/2t max angie: 81.6 cm/sec Ao V2 max: 120.4 cm/sec MV max P.0 mmHg MV P1/2t: 105.7 msec Ao max P.8 mmHg MV V2 mean: 64.8 cm/s ec MV dec slope: 226.2 cm/sec2 Ao V2 mean: 77.5 cm/sec MV mean P.0 mmHg MVA(P1/2t): 2.1 cm2 Ao mean P.8 mmHg MV V2 VTI: 33.1 cm Ao V2 VTI: 22.1 cm LV V1 max: 89.9 cm/sec PA V2 max: 107.2 cm/sec TR max angie: 282.9 cm/sec LV V1 max P.2 mmHg TR max P.0 mmHg LV V1 mean P.6 mmHg LV V1 mean: 58.8 cm/sec LV V1 VTI: 19.4 cm Interpretation Summary Normal LV size. Mild concentric left ventricular hypertrophy. Moderately severe global left ventricular systolic dysfunction. The estimated ejection fraction is 3 5 %. There is mild to moderate mitral annular calcification. Mild (1+) eccentric mitral valve insufficiency. Compared to the previous there is mild improvement noted Ordering Physician: Jonel Rashid Referring Physician: Jonel Rashid Performed By: Rolly Valdez RCS 03/10/17 1412 Date Jonel Rashid MD CC: Jonel Rashid MD; Nia Uriostegui DO Date Dictated: 03/10/17 1008 Date Transcr ibed: 03/10/17 1412 Cooker Cleaner: Signed 13-Nov-2016 CTA Chest W/WO Contrast Result: Comments: See Note; NOTES: [facility] Imaging Services [address] [place] [id number] CTA Chest W/WO Contrast MR#: [id number] Acct: [id number] Name: COMFORT OLSON Rep #: [id number] : 1940 F 75 From: Charly Almendarez DO PCP: Nia Uriostegui DO Status: REG ER Study: CTA Chest W/WO Contrast Date of Exam: 11/13/16 Exam# [id number] Ordering Dr: Emery Allen MD STUDY: CTA CHES T REASON FOR EXAM: Female, 75 years old. Shortness of breath RADIATION DOSAGE (If Supplied By Facility): CTDIvol = ( 16.72 ) mGy, DLP = ( 673.10 ) mGycm TECHNIQUE: The examination was performed with the intravenous administration of 100 ml of Isovue 300 contrast material. Post- processing of the angiographic images was performed, with multiplanar reformation and 3D reconstruction. Individualized do se optimization techniques were used for this CT. COMPARISON: None. FINDINGS: Normal enhancement of the main pulmonary artery and right and left pulmonary arteries . Normal enhancement of the bilateral peripheral pulmonary arteries. There is no demonstrated pulmonary embolism. There is prominence of the main pulmonary arteries without peripheral pulmonary vascular congestion, suggesting pulmonary hypertension. Normal thoracic aorta and visualized great vessels. There is no demonstrated aortic dissection. Cardiomegaly is noted. Sternal cerclage wires are prese nt from a prior sternotomy. Normal mediastinum. Normal hilar regions. Normal visualized trachea and bronchi. The lungs are hyper expanded, with flattening of the hemidiaphragms. Diffuse vascular gertrudis estion with interstitial edema compatible with CHF. Bibasilar airspace disease, consolidation and effusions. Multiple pulmonary nodules seen bilaterally. Largest in the left lower lobe measuring 4.2 mm. Several in both upper lobes. Normal chest wall structures. There are degenerative changes of thoracic spine. Normal visualized upper abdomen. CT/CTA Chest W/WO Contrast IMPRESSION: 1. Negative for pulmonary embolism or thoracic aortic dissection 2. Findings suggestive of CHF as detailed above with bibasilar airspace disease and effusion 3. B ilateral pulmonary nodules. Follow-up chest CT recommended in 3-6 months 4. Probable pulmonary hypertension. Moderate cardiomegaly. Electronically Signed: Charly Almendarez DO at 11:16 EDT Tel , Service support , CC: Emery Allen MD; Nia Uriostegui DO Cooker Cleaner: Signed 11-Nov-2016 Chest 1 View (Portable) Result: Comments: See Note; NOTES: [facility] Imaging Services [address] [place] [address] Chest 1 View (Portable) MR#: [id number] Acct: [id number] Name: COMFORT OLSON Rep #: [id number] : 1940 F 75 From: Jorge Herman MD PCP: Nia Uriostegui DO Status: REG ER Study: Chest 1 View (Portable) Date of Exam: 11/11/16 Exam# [id number] Ordering Dr: Jignesh Tello MD STUDY: X-RA Y CHEST REASON FOR EXAM: Female, 75 years old. Shortness of breath, irregular pulse, chest pain TECHNIQUE: Single frontal view of the chest. COMPARISON: January 16, 2016 FINDINGS: Sternotomy wires and mediastinal clips are noted. There is mild congestion. There is subsegmental atelectasis at the left base. There is no demonstrated pleural abnormality. There is mild cardiac enlargement. Normal mediastinum and emil. Normal visualized pulmonary arteries. Normal visualized aortic arch and descending thoracic aorta. Normal visualized thoracic spine. Normal visua lized ribs, clavicles, and shoulders. There is no demonstrated abnormality of the visualized soft tissue structures of the upper abdomen. RAD/Ch est 1 View (Portable) IMPRESSION: Mild CHF Electronically Signed: Jorge Herman MD at 21:29 EDT , Service support , CC: Nia vo DO; Jignesh Tello MD Cooker Cleaner: Signed 16-Jan-2016 Chest PA and Lateral Result: Comments: See Note; NOTES: [facility] Imaging Services [address] [place] [address] Verda 4d Chest PA and Lateral MR#: [id number] Acct: [id number] Name: COMFORT OLSON Rep #: [id number] : 1940 F 75 From: John Babcock MD PCP: Balbir Cramer Status: [facility] CLI Study: Chest PA and Lateral Date of Exam: 01/16/16 Exam# [id number] Ordering Dr: Balbir Cramer STUDY: X-RAY CHEST REASON FOR EXAM: Female, 75 years old. Cough. TECHNIQUE: PA and lateral views of the chest. COMPARISON: Comparison is made with prior study dated October 15, 2013. FINDINGS: Scattered bilateral calcified granulomas. There is no demonstrated pleural abnormality. Sternal cerclage wires and vascular clips are present from a prior sternotomy and coronary ar kianna bypass graft procedure (CABG). Borderline cardiomegaly. Normal mediastinum and emil. Normal visualized pulmonary arteries. Soft tissue density is seen in the right paratracheal region. The patient is known to have a double aortic arch. There is demineralization of the osseous structures. Increased kyphosis. 50% loss of height of the T8 vertebrae. Normal visualized ribs, clavicles, and shoulders. There is no demonstrated abnormality of the visualized soft tissue structures of the upper abdomen. RAD/Chest PA and Lateral IMPRESSION: Stable examination. No acute amount is seen. The patient has a history of double aortic arch. Electronically Signed: John Babcock MD at 13:26 EST Tel [phone], Service support , CC: Balbir Cramer Cooker Cleaner: Signed 14-Dec-2014 Bilat Scrn Digital AND CAD Result: Comments: See Note; NOTES: [facility] Imaging Services [address] [place] [address] Verdana 4d Bilat Scrn Digital AND CAD MR#: [id number] Acct: [id number] Name: COMFORT OLSON Rep #: [id number] : 1940 F 74 From: John Babcock MD PCP: Maylin Melendez DO Status: REG CLI Study: Bilat Scrn Digital AND CAD Date of Exam: 12/14/14 Exam# [id number] Ordering D r: Maylin Melendez DO MAMMOGRAPHY - BILATERAL SCREENING REASON FOR EXAM: Female, 74 years old. Routine annual screening examination. PERTINENT HISTORY: Non- contributory. TECHNIQUE: Digital examin ation. Mediolateral oblique (MLO) and craniocaudad (CC) views of both breasts were obtained. CAD: CAD was performed on this study. COMPARISON: Comparison is made with prior examination dated August 18, 2012 and April 04, 2010. FINDINGS: Breast Composition: There are scattered areas of fibroglandular density. There are no dominant masses or suspicious calc ifications. Scattered bilateral calcifications. These are stable. No other significant abnormalities are identified. There has been no significant change since the prior study. IMPRESSION: Stable bilateral screening mammogram. Yearly follow- up recommended. (A) ASSESSMENT CATEGORY: BIRADS Category 2: Benign. A letter r egarding these results will be sent to the patient by the facility within 30 days. Approximately 10% of breast cancers are not detected by mammography. A normal mammogram should not delay biopsy of a clinically suspicious abnormality. Electronically Signed: John Babcock MD at 14:05 EST Tel [phone], Service support [phone], CC: Maylin Melendez DO Cooker Cleaner: Signed 14-Dec-2014 Carotid Duplex Ultrasound Result: Comments: See Note; NOTES: [facility] Cardiovascular Services [address] [place] [address] Carotid Duplex Ultrasound 12/12/14 1007 MR#: [id number] Acct: [id number] Name: COMFORT OLSON Rep #: [id number] : 1940 74 From: Darian Anderson MD Attending Dr: Maylin Melendez DO Status: REG CLI Ordering Dr: Maylin Melendez DO Date: 12/12/14 Location: [facility] Sex: F C Admi tted: Rt. Velocities/BP Lt. Velocities/BP Prox CCA 84.9/13.4 cm/sec. Prox CCA 67.7/14.5 cm/sec. Mid CCA 73.4/15.2 cm/sec. Mid CCA 92.0/23.5 cm/sec. Dist CCA 60.4/14.1 cm/sec. Dist CCA 72.7/17.6 cm/sec. Prox ICA 60.9/17.7 cm/sec. Prox ICA 57.9/17.3 cm/sec. Mid ICA 60.2/20.9 cm/sec. Mid ICA 52.0/13.7 cm/sec. Dist ICA 78.3/26.1 cm/sec. Dist ICA 62.1/22.3 cm/sec. Rt. ICA/CCA = 1.1. Lt. ICA/CCA = .68. Prox ECA 70.9/7.0 cm/sec. Prox ECA 104.0/13.5 cm/sec. Rt. Vert. 35.7/5.1 cm/sec. Lt. Vert. 53.4/14.7 cm/sec. Right Extracranial There is intimal thickening but no significant atheroscleroti c plaque noted in the right common carotid artery. There is intimal thickening but no significant atherosclerotic plaque noted in the right internal carotid artery. The right internal carotid artery is very tortuous. There is no significant atherosclerotic plaque noted in the right external carotid artery. Antegrade flow is noted in the right vertebral artery. Left Extracranial There is heter ogeneous, smooth atherosclerotic plaque noted in the left common carotid artery. There is heterogeneous, smooth atherosclerotic plaque noted in the left internal carotid artery. There is no significa nt atherosclerotic plaque noted in the left external carotid artery. Antegrade flow is noted in the left vertebral artery. Procedure Carotid Duplex 70944. Exam performed in department. Interpreta tion Summary Mild (<50%) stenosis right extracranial internal carotid. Mild (<50%) stenosis left extracranial internal carotid. Flow within the vertebral arteries is antegrade bilater ally. Ordering Physician: Maylin Melendez Performed By: Sanaz Sheht RVT Electronically si gned by: MD Darian Anderson on 12/14/2014 07:37 AM 12/14/14 0737 Date Darian Anderson MD CC: Maylin Melendez DO Date Dictated: 12/12/14 1007 Date Transcribed: 12/14/14 0737 Cooker Cleaner: Signed 25-Apr-2014 Nuclear Stress Test - Chemical Result: Comments: See Note; NOTES: [facility] Imaging Services [address] [place] [address] Nuclear Medicine Report MR#: [id number] Acct: [id number] Name: COMFORT OLSON Rep #: [id number] : 1940 F 73 From: Jonel Rashid MD PCP: Maylin Melendez DO Status: REG CLI Study: Nuclear Stress Test - Chemical Date of Exam: 04/25/14 Exam# [id number] Ordering Dr: Jonel Rashid MD P HARMACOLOGIC MYOCARDIAL PERFUSION STRESS TEST REASON FOR EVALUATION: This is a 73-year-old lady with a history of chest pressure, previous coronary artery bypass surgery in 2004. MEDICATIONS: Ate nolol, Pravastatin, fenofibrate, aspirin, glyburide, valsartan. BASELINE INFORMATION: Resting EKG demonstrates a normal sinus rhythm with a rate of 71 beats per minute. Normal intervals are noted. R esting blood pressure was 146/82. Leftward axis is present. STRESS TEST: 0.4 mg of regadenoson was infused per usual protocol followed by rapid intravenous saline flush injection. Continuous EKG m onitoring was performed. The patient maintained sinus rhythm throughout the recording with some periods of sinus bradycardia present with symptoms. There were nonspecific ST-T-wave changes noted thro ughout the recording. The maximum heart rate attained was 84 beats per minute, which was 57% of maximum predicted heart rate. The maximum workload attained was 1 MET. At rest, there were no ST or T-wa ve changes noted to suggest abnormal flow reserve. At peak infusion, no ST or T-wave changes were noted to suggest abnormal flow reserve. The resting blood pressure was 146 /82 with a peak blood press ure of 164/78. No clinical angina was noted. MYOCARDIAL PERFUSION PROTOCOL: 15.0 mCi of Sestamibi was injected at rest. 0.4 mg of regadenoson was infused per usual protocol. At peak infusion, 44.8 m Ci of Sestamibi was injected. Stress and resting images were reconstructed and compared in the short axis, vertical long, and horizontal long axes. Gated images were also obtained. PERFUSION SPECT A NALYSIS: Review of the images demonstrated normal uptake of tracer noted in all areas of the myocardium. The resting images similarly demonstrated normal uptake of tracer noted in all areas of the my ocardium. No areas of reversibility are noted to suggest ischemia. GATED SPECT ANALYSIS: The gated ejection fraction is noted to be 60%. No wall motion abnormalities are present. CONCLUSION: 1. Normal pharmacologic myocardial perfusion stress test. 2. Preserved ejection fraction. CC: Jonel Rashid MD; Maylin Melendez DO Cooker Cleaner: CALIX Signed 31-Jan-2014 Spirometry (39638) Comments: Moderate restriction similar to previous Result: 14-Jan-2014 Chest PA and Lateral Result: Comments: See Note; NOTES: [facility] Imaging Services [address] [place] [address] Radiology Report MR#: [id number] Acct: [id number] Name: COMFORT OLSON Rep #: [id number] : 1940 F 73 From: John Babcock MD PCP: Maylin Melendez DO Status: REG CLI Study: Chest PA and Lateral Date of Exam: 01/14/14 Exam# [id number] Ordering Dr: Sherrie Amor STUDY: X-RAY CH EST REASON FOR EXAM: Female, 73 years old. Dyspnea and shortness of breath. TECHNIQUE: PA and lateral views of the chest. COMPARISON: Comparison is made with prior study dated July 09, 2013. FINDINGS: Calcified old granulomatous disease. Mild linear atelectasis at the lung bases. There is no demonstrated pleural abnormality. Sternal cerclage wires and v ascular clips are present from a prior sternotomy and coronary artery bypass graft procedure (CABG). Normal mediastinum and emil. Normal visualized pulmonary arteries. There is atherosclerotic tortuo sity of the aortic arch and descending thoracic aorta. 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 There is demineralization of the osseous structures. Increased kyphosis. Loss of h eight of a lower dorsal vertebrae. Normal visualized ribs, clavicles, and shoulders. There is no demonstrated abnormality of the visualized soft tissue structures of the upper abdomen. IMPRESSION: Mild increased markings at the lung bases suggestive of linear atelectasis. Electronically Signed: John Babcock MD at 14:58 EST Tel [phone], Service support [phone], RAD/Chest PA and Lateral IMPRESSION: Mild increased markings at the lung bases suggestive of linear atelectasis. Electronica lly Signed: John Babcock MD at 14:58 EST Tel [phone], Service support [phone], CC: Sherrie Amor; Maylin Melendez DO Cooker Cleaner: Signed 07-Sep-2013 Knee 4 or More Views Result: Comments: See Note; NOTES: [facility] Imaging Services [address] [place] [address] Radiology Report MR#: [id number] Acct: [id number] Name: COMFORT OLSON Rep #: [id number] : 1940 F 72 From: Yusuf Lopes PCP: Maylin Melendez DO Status: REG CLI Study: Knee 4 or More Views Date of Exam: 09/07/13 Exam# [id number] Ordering Dr: Maylin Melendez DO STUDY: X-RAY - LEFT KNEE REASON FOR EXAM: Female, 72 years old. Knee pain. TECHNIQUE: 4 view(s) of the knee. COMPARISON: None. FINDINGS: Alignment is normal. No fracture or di slocation. Moderate medial joint space narrowing on this weightbearing study. Tricompartment osteophytosis. Small joint effusion. 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 Medial joint space narrowing. Small joint effusion. Electronically Signed: Yusuf Lopes MD at 4:00 EDT Tel [phone] , Service support [phone] , CC: Maylin Melendez DO Cooker Cleaner: Signed 22-Aug-2013 Carotid Duplex Ultrasound Result: Comments: See Note; NOTES: [facility] Cardiovascular Services [address] [place] [address] Carotid Duplex Ultrasound 08/20/13 0945 MR#: [id number] Acct: [id number] Nam e: COMFORT OLSON Rep #: [id number] : 1940 72 From: Dairan Anderson MD Attending Dr: Maylin Melendez DO Status: REG CLI Ordering Dr: Maylin Melendez DO Date: 08/20/13 Location: [facility] Sex: F C Admitted: Rt. Velocities/BP Lt. Velocities/BP Prox CCA 92.5/13.1 cm/sec. Prox CCA 86.2/ 17.0 cm/sec. Mid CCA 65.2/12.4 cm/sec. Mid CCA 85.6/18.2 cm/sec. Dist CCA 58.1/14.1 cm/sec. Dist CCA 65.7/ 21.1 cm/se c. Prox ICA 53.8/15.7 cm/sec. Prox ICA 46.1/ 11.5 cm/sec. Mid ICA 58.6/18.5 cm/sec. Mid ICA 63.9/21.7 cm/sec. Dist ICA 81.0/24.7 cm/sec. Dist ICA 61.6/ 17.0 cm/sec. Rt. ICA/CCA = 1.2. Lt. ICA/CCA = .75. Prox ECA 40.2/5.4 cm/sec. Prox ECA 71.5/ 10.6 cm/sec. Rt. Vert. 35.2/7.0 cm/sec. Lt. Vert. 76.2/ 17.6 cm/sec. Right Extracranial There is intimal thickening but no significant atherosclerotic plaque noted in the right common carotid artery. The right common carotid artery is tortuous. There is heterogeneous, irregular atherosclerotic plaque noted in the right internal carotid artery. Th e right internal carotid artery is very tortuous. The right external carotid artery is not well visualized. Antegrade flow is noted in the right vertebral artery. Left Extracranial There is heter ogeneous, irregular atherosclerotic plaque noted in the left common carotid artery. There is heterogeneous, irregular atherosclerotic plaque noted in the left internal carotid artery. There is heter ogeneous, irregular atherosclerotic plaque noted in the left external carotid artery. Antegrade flow is noted in the left vertebral artery. Procedure Carotid Duplex 40[address]. Exam performed in [facility]. Interpretation Summary Mild (<50%) stenosis right extracranial internal carotid. Mild (<50%) stenosis left extracranial internal carotid. Flow within the vertebral arteries is antegrade bilaterally. Ordering Physician: Maylin Melendez Performed By: Sanaz Sheth RVT : Maylin Melendez DO Date Dictated: 08/20/13 0945 Date Transcribed: 08/22/1348 Cooker Cleaner: Signed 09-Jul-2013 Chest PA and Lateral Result: Comments: See Note; NOTES: [facility] Imaging Services [address] [place] [address] Radiology Report MR#: [id number] Acct: [id number] Name: COMFORT OLSON Rep #: [id number] : 1940 F 72 From: Jermaine Khan DO PCP: Maylin Melendez DO Status: REG CLI Study: Chest PA and Lateral Date of Exam: 07/09/13 Exam# [id number] Ordering Dr: Sherrie Amor STUDY: X-RAY CHEST REAS ON FOR EXAM: Female, 72 years old. Cough TECHNIQUE: Frontal and lateral views COMPARISON: September 25, 2012 FINDINGS: Sternotomy wires over the mediastinum. T he lungs are clear and expanded. There is no demonstrated pleural abnormality. Normal size heart. Normal mediastinum and emil. Normal visualized pulmonary arteries. Normal visualized aortic arch and descending thoracic aorta. Mild degenerative changes of the thoracic spine. Normal visualized ribs, clavicles, and shoulders. There is no demonstrated abnormality of the visualized soft tissue s tructures of the upper abdomen. IMPRESSION: Normal x-ray examination of the chest. Electronically Signed: Jermaine Khan DO at 22:50 EDT Tel [phone] , Service support [phone], CC: Sherrie Amor; Maylin Melendez DO Cooker Cleaner: Signed 08-Jan-2013 PT Discharge Summary Result: Comments: See Note; NOTES: [facility] Physical Therapy [facility] [address] [place] [address]. [address] [place] [address] Fax REHABILITATION SERVICES DISCHARGE SUMMARY MR#: [id number] Acct: [id number] Name: COMFORT OLSON Rep #: [id number] : 1940 72 From: Farrukh Hull Referring DrEdelmira: Maylin Melendez DO Status: REG RCR Eval Date: Discharge Baldo e: DATE OF SERVICE: DIAGNOSIS: Positional vertigo. PHYSICIAN: Dr. Melendez. DATE OF DISCHARGE: January 06, 2013 Comfort Olson was seen in my office for initial evaluation on December 18, 2012, was treated with the right-sided Damaris maneuver due to her dizziness and presentation that day and scheduled for weekly followups; however, she canceled her next visit calling to state that she was feeling much better after that positional treatment and presumably not needing to return. Therefore, at this time, I am discharging her from my care without official recheck. This is an expected ou tcome with the treatment that she has. Farrukh Hull, PT T: NTS JOB: [id number] <Electronically signed by Farrukh Hull > 01/08/13 0648 CC: * Signed 18-Dec-2012 Inital Evaluation - PT Result: Comments: See Note; NOTES: [facility] Physical Therapy [facility] [address] [place] [address] Fax REHABILITATION SERVICES INITIAL EVALUATION MR#: [id number] Acct: [id number] Name: COMFORT OLSON Rep #: [id number] : 1940 72 From: Farrukh Hull Referring Dr.: Maylin Melendez DO Status: REG RCR Insurance: MEDICARE PAR T A B Eval Date: [employer]EF[employer]AN DATE OF SERVICE: 12/18/2012 PHYSICIAN: Maylin Melendez D.O. DIAGNOSIS: Benign paroxysmal positional vertigo. SUBJECTIVE: Comfort Olson is a 72-year-old female, who presents today with her stating 4 days ago she went to bed a little lightheaded and woke up, got out of bed very dizzy, having a difficult time walking. She knew it was vertigo r ight away as she had it in the past and was treated by Dr. Osorio with that she thinks for the left side, where she felt better immediately. She could not get in to Dr. Osorio for weeks, so she went to see Dr. Melendez, who has sent her here for physical therapy for positional vertigo. She says she gets dizzy when she lies down and turns to the left, lasting about a minute. She just feels unstea dy and just out of sorts the rest of the day. She is on meclizine now, which does help. She does have a history of AFib, high blood pressure, diabetes and arthritis. Her goals of treatment are to fe el normal again. OBJECTIVE: The patient ambulates in Physical Therapy, in no acute distress. She is mildly unsteady. Holds her hands up in a guarded position, little bit of wide base for support, b ut is able to ambulate independently slowly. She transfers independently. Her cervical range of motion is within functional limits on this date. She has a very guarded posture. She has dizziness wi th left-sided Hallpike [place] test. No obvious nystagmus. Right- sided Hallpike Daren test is positive for dizziness of approximately 20-second duration, upward torsional nystagmus. I treat her with the r ight-sided Damaris maneuver and her testing both sides is negative after the Damaris maneuver. She walks out of therapy, looking happier and more steady. ASSESSMENT: At this point, the patient likely has right-sided posterior canal benign paroxysmal positional vertigo and is appropriate for physical therapy management with a good prognosis. GOALS: 1. Her dizziness will be abolished. 2. Her activities will be normal and she will feel very steady. PLAN: At this point, I have treated her with the Damaris maneuver and educated her on Liao-Daroff exercise to start over the weekend if she s till is symptomatic. At this point, I will see her weekly for 2-4 visits as needed to monitor her positional vertigo and treat with further vestibular therapy if needed and she was agreeable to this course of therapy. Farrukh Hull, PT T: NTS JOB: [id number] <Electronically signed by Farrukh Hull > 12/18/12 1151 CC: Signed For Medicare only, by signing this I certify the plan of care. 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 Status: Active Smoking Status Name Dates Details Never smoker Vital Signs Date Test Result Details :16 Temperature 96.8 f Pulse 94 /min Comments: Pattern: Regular Respiration Rate 17 /min Comments: Pattern: Unlabored O2 SAT 98 % Comments: Room air BP Systolic 142 mm[Hg] Comments: Patient Position: Sitting; Cuff Location: Left Arm; Cuff Size: Standard BP Diastolic 84 mm[Hg] Comments: Patient Position: Sitting; Cuff Location: Left Arm; Cuff Size: Standard Weight 201 lb Height 63.5 in Body Mass Index Calculated 35.05 kg/m2 Body Surface Area Calculated 1.95 m2 :10 Temperature 97.2 f Comments: Method: Temporal Pulse 89 /min Comments: Pattern: Regular Respiration Rate 18 /min Comments: Pattern: Unlabored O2 SAT 98 % Comments: Room air BP Systolic 140 mm[Hg] Comments: Patient Position: Sitting; Cuff Location: Left Arm; Cuff Size: Standard BP Diastolic 78 mm[Hg] Comments: Patient Position: Sitting; Cuff Location: Left Arm; Cuff Size: Standard Weight 201 lb Height 63.5 in Body Mass Index Calculated 35.05 kg/m2 Body Surface Area Calculated 1.95 m2 :36 Temperature 97.8 f Comments: Method: Temporal Pulse 105 /min Comments: Pattern: Regular Respiration Rate 17 /min Comments: Pattern: Unlabored O2 SAT 93 % Comments: Room air BP Systolic 142 mm[Hg] Comments: Patient Position: Sitting; Cuff Location: Left Arm; Cuff Size: Large BP Diastolic 80 mm[Hg] Comments: Patient Position: Sitting; Cuff Location: Left Arm; Cuff Size: Large Weight 202 lb Height 63.5 in Body Mass Index Calculated 35.22 kg/m2 Body Surface Area Calculated 1.95 m2 :19 Temperature 97.9 f Comments: Method: Temporal Pulse 68 /min Comments: Pattern: Regular Respiration Rate 16 /min Comments: Pattern: Unlabored O2 SAT 97 % Comments: Room air BP Systolic 148 mm[Hg] Comments: Patient Position: Sitting; Cuff Location: Right Arm; Cuff Size: Large BP Diastolic 132 mm[Hg] Comments: Patient Position: Sitting; Cuff Location: Right Arm; Cuff Size: Large Weight 203 lb Height 63.5 in Body Mass Index Calculated 35.4 kg/m2 Body Surface Area Calculated 1.96 m2 :25 Pulse 73 /min Comments: Pattern: Regular Respiration Rate 18 /min Comments: Pattern: Unlabored O2 SAT 98 % Comments: Room air BP Systolic 128 mm[Hg] Comments: Patient Position: Sitting; Cuff Location: Left Arm; Cuff Size: Standard BP Diastolic 80 mm[Hg] Comments: Patient Position: Sitting; Cuff Location: Left Arm; Cuff Size: Standard Weight 196.375 lb Height 63.5 in Body Mass Index Calculated 34.24 kg/m2 Body Surface Area Calculated 1.93 m2 :11 Pulse 70 /min Comments: Pattern: Regular Respiration Rate 18 /min Comments: Pattern: Unlabored O2 SAT 98 % Comments: Room air BP Systolic 142 mm[Hg] Comments: Patient Position: Sitting; Cuff Location: Left Arm; Cuff Size: Large BP Diastolic 78 mm[Hg] Comments: Patient Position: Sitting; Cuff Location: Left Arm; Cuff Size: Large Weight 194.375 lb Height 63.5 in Body Mass Index Calculated 33.89 kg/m2 Body Surface Area Calculated 1.92 m2 :27 Pulse 70 /min Comments: Pattern: Regular Respiration Rate 18 /min Comments: Pattern: Unlabored O2 SAT 97 % Comments: Room air BP Systolic 122 mm[Hg] Comments: Patient Position: Sitting; Cuff Location: Left Arm; Cuff Size: Large BP Diastolic 78 mm[Hg] Comments: Patient Position: Sitting; Cuff Location: Left Arm; Cuff Size: Large Weight 194 lb Height 63.5 in Body Mass Index Calculated 33.83 kg/m2 Body Surface Area Calculated 1.92 m2 :15 Temperature 97.7 f Comments: Method: Temporal Pulse 77 /min Comments: Pattern: Regular Respiration Rate 18 /min Comments: Pattern: Unlabored O2 SAT 98 % Comments: Room air BP Systolic 138 mm[Hg] Comments: Patient Position: Sitting; Cuff Location: Left Arm; Cuff Size: Large BP Diastolic 72 mm[Hg] Comments: Patient Position: Sitting; Cuff Location: Left Arm; Cuff Size: Large Weight 184.125 lb Height 63.5 in Body Mass Index Calculated 32.1 kg/m2 Body Surface Area Calculated 1.88 m2 :42 Temperature 97.2 f Comments: Method: Temporal Pulse 77 /min Comments: Pattern: Regular Respiration Rate 16 /min Comments: Pattern: Unlabored O2 SAT 97 % Comments: Room air BP Systolic 140 mm[Hg] Comments: Patient Position: Sitting; Cuff Location: Left Arm; Cuff Size: Large BP Diastolic 82 mm[Hg] Comments: Patient Position: Sitting; Cuff Location: Left Arm; Cuff Size: Large Weight 191 lb Height 63.5 in Body Mass Index Calculated 33.3 kg/m2 Body Surface Area Calculated 1.91 m2 :47 Pulse 73 /min Comments: Pattern: Regular Respiration Rate 18 /min Comments: Pattern: Unlabored O2 SAT 97 % Comments: Room air BP Systolic 122 mm[Hg] Comments: Patient Position: Sitting; Cuff Location: Left Arm; Cuff Size: Large BP Diastolic 66 mm[Hg] Comments: Patient Position: Sitting; Cuff Location: Left Arm; Cuff Size: Large Weight 192.25 lb Height 63.5 in Body Mass Index Calculated 33.52 kg/m2 Body Surface Area Calculated 1.91 m2 :16 Pulse 79 /min Comments: Pattern: Regular Respiration Rate 18 /min Comments: Pattern: Unlabored O2 SAT 95 % Comments: Room air BP Systolic 140 mm[Hg] Comments: Patient Position: Sitting; Cuff Location: Left Arm; Cuff Size: Large BP Diastolic 80 mm[Hg] Comments: Patient Position: Sitting; Cuff Location: Left Arm; Cuff Size: Large Weight 192.25 lb Height 63.5 in Body Mass Index Calculated 33.52 kg/m2 Body Surface Area Calculated 1.91 m2 :46 Temperature 98.4 f Comments: Method: Temporal Pulse 75 /min Comments: Pattern: Regular Respiration Rate 16 /min Comments: Pattern: Unlabored O2 SAT 96 % Comments: Room air BP Systolic 134 mm[Hg] Comments: Patient Position: Sitting; Cuff Location: Left Arm; Cuff Size: Standard BP Diastolic 82 mm[Hg] Comments: Patient Position: Sitting; Cuff Location: Left Arm; Cuff Size: Standard Weight 191 lb Height 63.5 in Body Mass Index Calculated 33.3 kg/m2 Body Surface Area Calculated 1.91 m2 :51 Temperature 98.2 f Comments: Method: Temporal Pulse 72 /min Comments: Pattern: Regular Respiration Rate 16 /min Comments: Pattern: Unlabored O2 SAT 94 % Comments: Room air BP Systolic 128 mm[Hg] Comments: Patient Position: Sitting; Cuff Location: Left Arm; Cuff Size: Standard BP Diastolic 76 mm[Hg] Comments: Patient Position: Sitting; Cuff Location: Left Arm; Cuff Size: Standard Weight 195 lb Height 63.5 in Body Mass Index Calculated 34 kg/m2 Body Surface Area Calculated 1.92 m2 :58 Temperature 97.8 f Comments: Method: Temporal Pulse 76 /min Comments: Pattern: Regular Respiration Rate 16 /min Comments: Pattern: Unlabored O2 SAT 97 % Comments: Room air BP Systolic 140 mm[Hg] Comments: Patient Position: Sitting; Cuff Location: Left Arm; Cuff Size: Standard BP Diastolic 70 mm[Hg] Comments: Patient Position: Sitting; Cuff Location: Left Arm; Cuff Size: Standard Weight 195 lb Height 63.5 in Body Mass Index Calculated 34 kg/m2 Body Surface Area Calculated 1.92 m2 :49 Temperature 97.6 f Comments: Method: Temporal Pulse 66 /min Comments: Pattern: Regular Respiration Rate 16 /min Comments: Pattern: Unlabored O2 SAT 97 % Comments: Room air BP Systolic 124 mm[Hg] Comments: Patient Position: Sitting; Cuff Location: Left Arm; Cuff Size: Standard BP Diastolic 78 mm[Hg] Comments: Patient Position: Sitting; Cuff Location: Left Arm; Cuff Size: Standard Weight 198 lb Height 63.5 in Body Mass Index Calculated 34.52 kg/m2 Body Surface Area Calculated 1.94 m2 :26 Temperature 97.3 f Comments: Method: Temporal Pulse 71 /min Comments: Pattern: Regular Respiration Rate 16 /min Comments: Pattern: Unlabored BP Systolic 128 mm[Hg] Comments: Patient Position: Sitting; Cuff Location: Left Arm; Cuff Size: Large BP Diastolic 66 mm[Hg] Comments: Patient Position: Sitting; Cuff Location: Left Arm; Cuff Size: Large Weight 198 lb Height 63.5 in Body Mass Index Calculated 34.52 kg/m2 Body Surface Area Calculated 1.94 m2 :44 Temperature 97.8 f Comments: Method: Oral Pulse 74 /min Comments: Pattern: Regular Respiration Rate 16 /min Comments: Pattern: Unlabored BP Systolic 130 mm[Hg] Comments: Patient Position: Sitting; Cuff Location: Left Arm; Cuff Size: Standard BP Diastolic 78 mm[Hg] Comments: Patient Position: Sitting; Cuff Location: Left Arm; Cuff Size: Standard Weight 195 lb Height 63.5 in Body Mass Index Calculated 34 kg/m2 Body Surface Area Calculated 1.92 m2 :04 BP Systolic 120 mm[Hg] Comments: Patient Position: Sitting BP Diastolic 70 mm[Hg] Comments: Patient Position: Sitting :05 Temperature 97.6 f Comments: Method: Temporal Pulse 65 /min Comments: Pattern: Regular Respiration Rate 15 /min Comments: Pattern: Unlabored O2 SAT 96 % Comments: Room air BP Systolic 152 mm[Hg] Comments: Patient Position: Sitting; Cuff Location: Left Arm; Cuff Size: Standard BP Diastolic 82 mm[Hg] Comments: Patient Position: Sitting; Cuff Location: Left Arm; Cuff Size: Standard Weight 195 lb Height 63.5 in Body Mass Index Calculated 34 kg/m2 Body Surface Area Calculated 1.92 m2 :46 Temperature 97.6 f Comments: Method: Temporal Pulse 64 /min Comments: Pattern: Regular Respiration Rate 17 /min Comments: Pattern: Unlabored O2 SAT 98 % Comments: Room air BP Systolic 136 mm[Hg] Comments: Patient Position: Sitting; Cuff Location: Left Arm; Cuff Size: Standard BP Diastolic 84 mm[Hg] Comments: Patient Position: Sitting; Cuff Location: Left Arm; Cuff Size: Standard Weight 196 lb Height 63.5 in Body Mass Index Calculated 34.17 kg/m2 Body Surface Area Calculated 1.93 m2 :21 Temperature 98.1 f Comments: Method: Oral Pulse 76 /min Comments: Pattern: Regular Respiration Rate 16 /min Comments: Pattern: Unlabored BP Systolic 140 mm[Hg] Comments: Patient Position: Sitting; Cuff Location: Left Arm; Cuff Size: Large BP Diastolic 78 mm[Hg] Comments: Patient Position: Sitting; Cuff Location: Left Arm; Cuff Size: Large Weight 199 lb Height 63.5 in Body Mass Index Calculated 34.7 kg/m2 Body Surface Area Calculated 1.94 m2 :51 Temperature 98.8 f Comments: Method: Oral Pulse 72 /min Comments: Pattern: Regular Respiration Rate 16 /min Comments: Pattern: Unlabored BP Systolic 162 mm[Hg] Comments: Patient Position: Sitting; Cuff Location: Left Arm; Cuff Size: Large BP Diastolic 90 mm[Hg] Comments: Patient Position: Sitting; Cuff Location: Left Arm; Cuff Size: Large Weight 200 lb Height 63.5 in Body Mass Index Calculated 34.87 kg/m2 Body Surface Area Calculated 1.95 m2 :26 Temperature 97.8 f Comments: Method: Oral Pulse 80 /min Comments: Pattern: Regular Respiration Rate 16 /min Comments: Pattern: Unlabored BP Systolic 122 mm[Hg] Comments: Patient Position: Sitting; Cuff Location: Left Arm; Cuff Size: Standard BP Diastolic 64 mm[Hg] Comments: Patient Position: Sitting; Cuff Location: Left Arm; Cuff Size: Standard Weight 210 lb Height 63.5 in Body Mass Index Calculated 36.62 kg/m2 Body Surface Area Calculated 1.99 m2 :36 Temperature 97.7 f Comments: Method: Oral Pulse 86 /min Comments: Pattern: Regular Respiration Rate 16 /min Comments: Pattern: Unlabored O2 SAT 95 % Comments: Room air BP Systolic 130 mm[Hg] Comments: Patient Position: Sitting; Cuff Location: Left Arm; Cuff Size: Standard BP Diastolic 80 mm[Hg] Comments: Patient Position: Sitting; Cuff Location: Left Arm; Cuff Size: Standard Weight 215 lb Height 63.5 in Body Mass Index Calculated 37.49 kg/m2 Body Surface Area Calculated 2.01 m2 :19 Temperature 96.1 f Pulse 76 /min Comments: Pattern: Regular Respiration Rate 18 /min Comments: Pattern: Unlabored O2 SAT 97 % Comments: Room air BP Systolic 128 mm[Hg] Comments: Patient Position: Sitting; Cuff Location: Left Arm; Cuff Size: Large BP Diastolic 76 mm[Hg] Comments: Patient Position: Sitting; Cuff Location: Left Arm; Cuff Size: Large Weight 213 lb Height 63.5 in Body Mass Index Calculated 37.14 kg/m2 Body Surface Area Calculated 2 m2 [id number] Comments: Recheck BP 158/82 Temperature 100 f Comments: Method: Oral Pulse 80 /min Comments: Pattern: Regular Respiration Rate 16 /min Comments: Pattern: Unlabored O2 SAT 96 % Comments: Room air BP Systolic 160 mm[Hg] Comments: Patient Position: Sitting; Cuff Location: Left Arm; Cuff Size: Standard BP Diastolic 98 mm[Hg] Comments: Patient Position: Sitting; Cuff Location: Left Arm; Cuff Size: Standard Weight 210.4375 lb Height 63.5 in Body Mass Index Calculated 36.69 kg/m2 Body Surface Area Calculated 1.99 m2 :48 Temperature 98.4 f Comments: Method: Temporal Pulse 73 /min Comments: Pattern: Regular Respiration Rate 18 /min Comments: Pattern: Unlabored O2 SAT 94 % Comments: Room air BP Systolic 140 mm[Hg] Comments: Patient Position: Sitting; Cuff Location: Left Arm; Cuff Size: Standard BP Diastolic 74 mm[Hg] Comments: Patient Position: Sitting; Cuff Location: Left Arm; Cuff Size: Standard Weight 210.4375 lb Height 63.5 in Body Mass Index Calculated 36.69 kg/m2 Body Surface Area Calculated 1.99 m2 :16 Temperature 99 f Comments: Method: Oral Pulse 82 /min Comments: Pattern: Regular Respiration Rate 16 /min O2 SAT 96 % Comments: Room air BP Systolic 122 mm[Hg] Comments: Patient Position: Sitting; Cuff Location: Left Arm; Cuff Size: Standard BP Diastolic 70 mm[Hg] Comments: Patient Position: Sitting; Cuff Location: Left Arm; Cuff Size: Standard Weight 210.4375 lb Height 63.5 in Body Mass Index Calculated 36.69 kg/m2 Body Surface Area Calculated 1.99 m2 :33 Temperature 97.1 f Comments: Method: Temporal Pulse 76 /min Comments: Pattern: Regular Respiration Rate 20 /min Comments: Pattern: Unlabored O2 SAT 98 % Comments: Room air BP Systolic 146 mm[Hg] Comments: Patient Position: Sitting; Cuff Location: Left Arm; Cuff Size: Large BP Diastolic 84 mm[Hg] Comments: Patient Position: Sitting; Cuff Location: Left Arm; Cuff Size: Large Weight 216.05 lb Height 63.5 in Body Mass Index Calculated 37.67 kg/m2 Body Surface Area Calculated 2.01 m2 :14 Temperature 96.2 f Comments: Method: Temporal Pulse 72 /min Comments: Pattern: Regular Respiration Rate 16 /min Comments: Pattern: Unlabored O2 SAT 98 % Comments: Room air BP Systolic 122 mm[Hg] Comments: Patient Position: Sitting; Cuff Location: Left Arm; Cuff Size: Standard BP Diastolic 74 mm[Hg] Comments: Patient Position: Sitting; Cuff Location: Left Arm; Cuff Size: Standard Weight 211 lb Height 63.5 in Body Mass Index Calculated 36.79 kg/m2 Body Surface Area Calculated 1.99 m2 :42 Temperature 97.6 f Pulse 76 /min Comments: Pattern: Regular Respiration Rate 16 /min Comments: Pattern: Unlabored BP Systolic 126 mm[Hg] Comments: Patient Position: Sitting; Cuff Location: Left Arm; Cuff Size: Large BP Diastolic 62 mm[Hg] Comments: Patient Position: Sitting; Cuff Location: Left Arm; Cuff Size: Large Weight 203 lb Height 63.5 in Body Mass Index Calculated 35.4 kg/m2 Body Surface Area Calculated 1.96 m2 :15 Temperature 98.6 f Comments: Method: Oral Pulse 81 /min Comments: Pattern: Regular Respiration Rate 16 /min Comments: Pattern: Unlabored BP Systolic 142 mm[Hg] Comments: Patient Position: Sitting; Cuff Location: Left Arm; Cuff Size: Standard BP Diastolic 78 mm[Hg] Comments: Patient Position: Sitting; Cuff Location: Left Arm; Cuff Size: Standard Weight 205.0625 lb Height 63.5 in Body Mass Index Calculated 35.76 kg/m2 Body Surface Area Calculated 1.97 m2 :28 Temperature 98.2 f Comments: Method: Oral Pulse 90 /min Comments: Pattern: Regular Respiration Rate 16 /min O2 SAT 98 % Comments: Room air BP Systolic 136 mm[Hg] Comments: Patient Position: Sitting; Cuff Location: Left Arm; Cuff Size: Standard BP Diastolic 80 mm[Hg] Comments: Patient Position: Sitting; Cuff Location: Left Arm; Cuff Size: Standard Weight 208.0625 lb Height 63.5 in Body Mass Index Calculated 36.28 kg/m2 Body Surface Area Calculated 1.98 m2 :08 Temperature 98.3 f Comments: Method: Oral Pulse 81 /min Comments: Pattern: Regular Respiration Rate 16 /min Comments: Pattern: Unlabored O2 SAT 96 % Comments: Room air BP Systolic 142 mm[Hg] Comments: Patient Position: Sitting; Cuff Location: Left Arm; Cuff Size: Standard BP Diastolic 82 mm[Hg] Comments: Patient Position: Sitting; Cuff Location: Left Arm; Cuff Size: Standard Weight 208.0625 lb Height 63.5 in Body Mass Index Calculated 36.28 kg/m2 Body Surface Area Calculated 1.98 m2 :32 Temperature 98 f Comments: Method: Oral Pulse 70 /min Comments: Pattern: Regular Respiration Rate 18 /min Comments: Pattern: Unlabored O2 SAT 97 % Comments: Room air BP Systolic 142 mm[Hg] Comments: Patient Position: Sitting; Cuff Location: Left Arm; Cuff Size: Standard BP Diastolic 82 mm[Hg] Comments: Patient Position: Sitting; Cuff Location: Left Arm; Cuff Size: Standard Weight 208.0625 lb Height 63.5 in Body Mass Index Calculated 36.28 kg/m2 Body Surface Area Calculated 1.98 m2 :11 Temperature 98.1 f Comments: Method: Oral Pulse 71 /min Comments: Pattern: Regular Respiration Rate 18 /min Comments: Pattern: Unlabored O2 SAT 98 % Comments: Room air BP Systolic 160 mm[Hg] Comments: Patient Position: Sitting; Cuff Location: Left Arm; Cuff Size: Standard BP Diastolic 80 mm[Hg] Comments: Patient Position: Sitting; Cuff Location: Left Arm; Cuff Size: Standard Weight 208.0625 lb Height 63.5 in Body Mass Index Calculated 36.28 kg/m2 Body Surface Area Calculated 1.98 m2 :54 Weight 204.5 lb Height 63.5 in Body Mass Index Calculated 35.66 kg/m2 Body Surface Area Calculated 1.96 m2 :45 Temperature 99.7 f Comments: Method: Oral Pulse 90 /min Comments: Pattern: Regular Respiration Rate 20 /min Comments: Pattern: Unlabored O2 SAT 93 % Comments: Room air BP Systolic 142 mm[Hg] Comments: Patient Position: Sitting; Cuff Location: Left Arm; Cuff Size: Large BP Diastolic 72 mm[Hg] Comments: Patient Position: Sitting; Cuff Location: Left Arm; Cuff Size: Large Weight 204.5 lb Height 63.5 in Body Mass Index Calculated 35.66 kg/m2 Body Surface Area Calculated 1.96 m2 :33 Temperature 99.1 f Pulse 76 /min Comments: Pattern: Regular Respiration Rate 16 /min Comments: Pattern: Unlabored BP Systolic 138 mm[Hg] Comments: Patient Position: Sitting; Cuff Location: Left Arm; Cuff Size: Large BP Diastolic 90 mm[Hg] Comments: Patient Position: Sitting; Cuff Location: Left Arm; Cuff Size: Large Weight 209 lb Height 63.5 in Body Mass Index Calculated 36.44 kg/m2 Body Surface Area Calculated 1.98 m2 :13 Temperature 97.2 f Pulse 72 /min Comments: Pattern: Regular Respiration Rate 18 /min Comments: Pattern: Unlabored BP Systolic 122 mm[Hg] Comments: Patient Position: Sitting; Cuff Location: Left Arm; Cuff Size: Large BP Diastolic 70 mm[Hg] Comments: Patient Position: Sitting; Cuff Location: Left Arm; Cuff Size: Large Weight 203 lb Height 63.5 in Body Mass Index Calculated 35.4 kg/m2 Body Surface Area Calculated 1.96 m2 :45 BP Systolic 116 mm[Hg] Comments: Patient Position: Sitting; Cuff Location: Right Arm; Cuff Size: Standard BP Diastolic 64 mm[Hg] Comments: Patient Position: Sitting; Cuff Location: Right Arm; Cuff Size: Standard :43 Pulse 64 /min Comments: Pattern: Irregular Respiration Rate 18 /min Comments: Pattern: Unlabored O2 SAT 97 % Comments: Room air BP Systolic 120 mm[Hg] Comments: Patient Position: Sitting; Cuff Location: Left Arm; Cuff Size: Standard BP Diastolic 62 mm[Hg] Comments: Patient Position: Sitting; Cuff Location: Left Arm; Cuff Size: Standard Weight 207 lb Height 63.5 in Body Mass Index Calculated 36.09 kg/m2 Body Surface Area Calculated 1.97 m2 :08 Temperature 98 f Comments: Method: Oral Pulse 70 /min Comments: Pattern: Regular Respiration Rate 16 /min O2 SAT 98 % Comments: Room air BP Systolic 126 mm[Hg] Comments: Patient Position: Sitting; Cuff Location: Left Arm; Cuff Size: Standard BP Diastolic 74 mm[Hg] Comments: Patient Position: Sitting; Cuff Location: Left Arm; Cuff Size: Standard Weight 207 lb Height 63.5 in Body Mass Index Calculated 36.09 kg/m2 Body Surface Area Calculated 1.97 m2 :22 Temperature 97.4 f Pulse 74 /min Comments: Pattern: Regular Respiration Rate 18 /min Comments: Pattern: Unlabored BP Systolic 132 mm[Hg] Comments: Patient Position: Sitting; Cuff Location: Left Arm; Cuff Size: Large BP Diastolic 84 mm[Hg] Comments: Patient Position: Sitting; Cuff Location: Left Arm; Cuff Size: Large Weight 207 lb Height 63.5 in Body Mass Index Calculated 36.09 kg/m2 Body Surface Area Calculated 1.97 m2 :43 Temperature 97 f Pulse 76 /min Comments: Pattern: Regular Respiration Rate 16 /min Comments: Pattern: Unlabored BP Systolic 138 mm[Hg] Comments: Patient Position: Sitting; Cuff Location: Left Arm; Cuff Size: Large BP Diastolic 70 mm[Hg] Comments: Patient Position: Sitting; Cuff Location: Left Arm; Cuff Size: Large Weight 207 lb Height 63.5 in Body Mass Index Calculated 36.09 kg/m2 Body Surface Area Calculated 1.97 m2 :34 Temperature 98.8 f Pulse 72 /min Comments: Pattern: Regular Respiration Rate 18 /min Comments: Pattern: Unlabored BP Systolic 160 mm[Hg] Comments: Patient Position: Sitting; Cuff Location: Left Arm; Cuff Size: Large BP Diastolic 84 mm[Hg] Comments: Patient Position: Sitting; Cuff Location: Left Arm; Cuff Size: Large Weight 204 lb Height 63.5 in Body Mass Index Calculated 35.57 kg/m2 Body Surface Area Calculated 1.96 m2 :38 Temperature 98.8 f Comments: Method: Oral Pulse 80 /min Comments: Pattern: Regular Respiration Rate 20 /min Comments: Pattern: Unlabored BP Systolic 142 mm[Hg] Comments: Patient Position: Sitting; Cuff Location: Left Arm; Cuff Size: Standard BP Diastolic 82 mm[Hg] Comments: Patient Position: Sitting; Cuff Location: Left Arm; Cuff Size: Standard Weight 204 lb Height 63.5 in Body Mass Index Calculated 35.57 kg/m2 Body Surface Area Calculated 1.96 m2 :57 Temperature 96.6 f Pulse 72 /min Comments: Pattern: Regular Respiration Rate 18 /min Comments: Pattern: Unlabored BP Systolic 128 mm[Hg] Comments: Patient Position: Sitting; Cuff Location: Left Arm; Cuff Size: Large BP Diastolic 70 mm[Hg] Comments: Patient Position: Sitting; Cuff Location: Left Arm; Cuff Size: Large Weight 204 lb Height 63.5 in Body Mass Index Calculated 35.57 kg/m2 Body Surface Area Calculated 1.96 m2 :07 Temperature 98 f Comments: Method: Oral Pulse 70 /min Comments: Pattern: Regular Respiration Rate 17 /min Comments: Pattern: Unlabored O2 SAT 98 % Comments: Room air BP Systolic 142 mm[Hg] Comments: Patient Position: Sitting; Cuff Location: Left Arm; Cuff Size: Standard BP Diastolic 80 mm[Hg] Comments: Patient Position: Sitting; Cuff Location: Left Arm; Cuff Size: Standard Weight 204 lb Height 63.5 in Body Mass Index Calculated 35.57 kg/m2 Body Surface Area Calculated 1.96 m2 :40 Temperature 97.4 f Pulse 76 /min Comments: Pattern: Regular Respiration Rate 18 /min Comments: Pattern: Unlabored BP Systolic 148 mm[Hg] Comments: Patient Position: Sitting; Cuff Location: Left Arm; Cuff Size: Large BP Diastolic 80 mm[Hg] Comments: Patient Position: Sitting; Cuff Location: Left Arm; Cuff Size: Large Weight 204 lb Height 63.5 in Body Mass Index Calculated 35.57 kg/m2 Body Surface Area Calculated 1.96 m2 :56 Temperature 97.6 f Pulse 76 /min Comments: Pattern: Regular Respiration Rate 18 /min Comments: Pattern: Unlabored BP Systolic 130 mm[Hg] Comments: Patient Position: Sitting; Cuff Location: Left Arm; Cuff Size: Large BP Diastolic 90 mm[Hg] Comments: Patient Position: Sitting; Cuff Location: Left Arm; Cuff Size: Large Weight 203 lb Height 63.5 in Body Mass Index Calculated 35.4 kg/m2 Body Surface Area Calculated 1.96 m2 :03 Pulse 72 /min Comments: Pattern: Regular Respiration Rate 18 /min Comments: Pattern: Unlabored BP Systolic 156 mm[Hg] Comments: Patient Position: Sitting; Cuff Location: Left Arm; Cuff Size: Large BP Diastolic 86 mm[Hg] Comments: Patient Position: Sitting; Cuff Location: Left Arm; Cuff Size: Large Weight 204 lb Height 63.5 in Body Mass Index Calculated 35.57 kg/m2 Body Surface Area Calculated 1.96 m2 :40 Temperature 96.1 f Pulse 82 /min Comments: Pattern: Regular Respiration Rate 18 /min Comments: Pattern: Unlabored BP Systolic 130 mm[Hg] Comments: Patient Position: Sitting; Cuff Location: Left Arm; Cuff Size: Large BP Diastolic 80 mm[Hg] Comments: Patient Position: Sitting; Cuff Location: Left Arm; Cuff Size: Large Weight 205 lb Height 63.5 in Body Mass Index Calculated 35.74 kg/m2 Body Surface Area Calculated 1.97 m2 :06 BP Systolic 132 mm[Hg] Comments: Patient Position: Sitting BP Diastolic 78 mm[Hg] Comments: Patient Position: Sitting :28 Temperature 97.8 f Pulse 80 /min Comments: Pattern: Regular Respiration Rate 16 /min Comments: Pattern: Unlabored BP Systolic 156 mm[Hg] Comments: Patient Position: Sitting; Cuff Location: Left Arm; Cuff Size: Large BP Diastolic 74 mm[Hg] Comments: Patient Position: Sitting; Cuff Location: Left Arm; Cuff Size: Large Weight 207 lb Height 63.5 in Body Mass Index Calculated 36.09 kg/m2 Body Surface Area Calculated 1.97 m2 :24 Temperature 98.8 f Comments: Method: Oral Pulse 76 /min Comments: Pattern: Regular Respiration Rate 20 /min Comments: Pattern: Unlabored O2 SAT 95 % Comments: Room air BP Systolic 140 mm[Hg] Comments: Patient Position: Sitting; Cuff Location: Left Arm; Cuff Size: Large BP Diastolic 76 mm[Hg] Comments: Patient Position: Sitting; Cuff Location: Left Arm; Cuff Size: Large Weight 206 lb Height 63.5 in Body Mass Index Calculated 35.92 kg/m2 Body Surface Area Calculated 1.97 m2 :19 Temperature 97.6 f Pulse 72 /min Comments: Pattern: Regular Respiration Rate 16 /min Comments: Pattern: Unlabored BP Systolic 132 mm[Hg] Comments: Patient Position: Sitting; Cuff Location: Left Arm; Cuff Size: Large BP Diastolic 66 mm[Hg] Comments: Patient Position: Sitting; Cuff Location: Left Arm; Cuff Size: Large Weight 206 lb Height 63.5 in Body Mass Index Calculated 35.92 kg/m2 Body Surface Area Calculated 1.97 m2 :57 Pulse 76 /min Comments: Pattern: Regular Respiration Rate 16 /min Comments: Pattern: Unlabored Weight 204 lb Height 63.75 in Body Mass Index Calculated 35.29 kg/m2 Body Surface Area Calculated 1.97 m2 :15 Temperature 97.6 f Pulse 72 /min Comments: Pattern: Regular Respiration Rate 16 /min Comments: Pattern: Unlabored BP Systolic 126 mm[Hg] Comments: Patient Position: Sitting; Cuff Location: Left Arm; Cuff Size: Large BP Diastolic 72 mm[Hg] Comments: Patient Position: Sitting; Cuff Location: Left Arm; Cuff Size: Large Weight 204 lb Height 63.75 in Body Mass Index Calculated 35.29 kg/m2 Body Surface Area Calculated 1.97 m2 :08 Temperature 96 f Pulse 72 /min Comments: Pattern: Regular Respiration Rate 18 /min Comments: Pattern: Unlabored BP Systolic 144 mm[Hg] Comments: Patient Position: Sitting; Cuff Location: Left Arm; Cuff Size: Standard BP Diastolic 78 mm[Hg] Comments: Patient Position: Sitting; Cuff Location: Left Arm; Cuff Size: Standard :33 Temperature 96 f Comments: Method: Oral Pulse 68 /min Comments: Pattern: Regular Respiration Rate 16 /min Comments: Pattern: Unlabored BP Systolic 132 mm[Hg] Comments: Patient Position: Sitting; Cuff Location: Left Arm; Cuff Size: Standard BP Diastolic 64 mm[Hg] Comments: Patient Position: Sitting; Cuff Location: Left Arm; Cuff Size: Standard Weight 206.2 lb :35 Pulse 78 /min Comments: Pattern: Regular Respiration Rate 18 /min Comments: Pattern: Unlabored BP Systolic 122 mm[Hg] Comments: Patient Position: Sitting; Cuff Location: Left Arm; Cuff Size: Standard BP Diastolic 74 mm[Hg] Comments: Patient Position: Sitting; Cuff Location: Left Arm; Cuff Size: Standard Weight 210 lb :07 Pulse 62 /min Comments: Pattern: Regular Respiration Rate 16 /min Comments: Pattern: Unlabored Weight 196 lb Height 64 in Body Mass Index Calculated 33.64 kg/m2 Body Surface Area Calculated 1.94 m2 :09 Temperature 98.1 f Comments: Method: Undefined Pulse 78 /min Comments: Pattern: Regular Respiration Rate 18 /min Comments: Pattern: Undefined BP Systolic 152 mm[Hg] Comments: Patient Position: Sitting; Cuff Location: Left Arm; Cuff Size: Large BP Diastolic 74 mm[Hg] Comments: Patient Position: Sitting; Cuff Location: Left Arm; Cuff Size: Large Weight 0 lb Height 0 in Head Circumference 0.00 cm :05 Comments: took bp this am, states was rushing this am. Temperature 98.1 f Comments: Method: Undefined Pulse 76 /min Comments: Pattern: Regular Respiration Rate 18 /min Comments: Pattern: Undefined O2 SAT 95 % Comments: Room air BP Systolic 158 mm[Hg] Comments: Patient Position: Sitting; Cuff Location: Left Arm; Cuff Size: Large BP Diastolic 74 mm[Hg] Comments: Patient Position: Sitting; Cuff Location: Left Arm; Cuff Size: Large Weight 0 lb Height 0 in Head Circumference 0.00 cm :56 Temperature 98.4 f Comments: Method: Oral Pulse 68 /min Comments: Pattern: Regular Respiration Rate 18 /min Comments: Pattern: Undefined BP Systolic 142 mm[Hg] Comments: Patient Position: Sitting; Cuff Location: Undefined; Cuff Size: Undefined BP Diastolic 66 mm[Hg] Comments: Patient Position: Sitting; Cuff Location: Undefined; Cuff Size: Undefined Weight 0 lb Height 0 in Head Circumference 0.00 cm :23 Pulse 80 /min Comments: Pattern: Regular Respiration Rate 16 /min Comments: Pattern: Unlabored BP Systolic 124 mm[Hg] Comments: Patient Position: Supine; Cuff Location: Left Arm; Cuff Size: Standard BP Diastolic 72 mm[Hg] Comments: Patient Position: Supine; Cuff Location: Left Arm; Cuff Size: Standard Weight 196 lb Height 64 in Body Mass Index Calculated 33.64 kg/m2 Body Surface Area Calculated 1.94 m2 Head Circumference 0.00 cm :30 Temperature 96.6 f Comments: Method: Undefined Pulse 80 /min Comments: Pattern: Regular Respiration Rate 18 /min Comments: Pattern: Undefined BP Systolic 148 mm[Hg] Comments: Patient Position: Sitting; Cuff Location: Left Arm; Cuff Size: Standard BP Diastolic 72 mm[Hg] Comments: Patient Position: Sitting; Cuff Location: Left Arm; Cuff Size: Standard Weight 0 lb Height 0 in Head Circumference 0.00 cm :57 BP Systolic 138 mm[Hg] Comments: Patient Position: Sitting; Cuff Location: Undefined; Cuff Size: Undefined BP Diastolic 78 mm[Hg] Comments: Patient Position: Sitting; Cuff Location: Undefined; Cuff Size: Undefined Weight 0 lb Height 0 in Head Circumference 0.00 cm :14 Temperature 96.5 f Comments: Method: Undefined Pulse 86 /min Comments: Pattern: Regular Respiration Rate 18 /min Comments: Pattern: Undefined BP Systolic 152 mm[Hg] Comments: Patient Position: Sitting; Cuff Location: Right Arm; Cuff Size: Standard BP Diastolic 72 mm[Hg] Comments: Patient Position: Sitting; Cuff Location: Right Arm; Cuff Size: Standard Weight 210 lb Height 0 in Head Circumference 0.00 cm :54 Temperature 97.6 f Comments: Method: Undefined Pulse 76 /min Comments: Pattern: Regular Respiration Rate 18 /min Comments: Pattern: Undefined BP Systolic 130 mm[Hg] Comments: Patient Position: Sitting; Cuff Location: Left Arm; Cuff Size: Large BP Diastolic 76 mm[Hg] Comments: Patient Position: Sitting; Cuff Location: Left Arm; Cuff Size: Large Weight 218 lb Height 0 in Head Circumference 0.00 cm :54 Pulse 80 /min Comments: Pattern: Regular Respiration Rate 16 /min Comments: Pattern: Undefined BP Systolic 140 mm[Hg] Comments: Patient Position: Sitting; Cuff Location: Left Arm; Cuff Size: Large BP Diastolic 86 mm[Hg] Comments: Patient Position: Sitting; Cuff Location: Left Arm; Cuff Size: Large Weight 214 lb Height 64 in Body Mass Index Calculated 36.73 kg/m2 Body Surface Area Calculated 2.01 m2 Head Circumference 0.00 cm :48 Pulse 72 /min Comments: Pattern: Regular Respiration Rate 16 /min Comments: Pattern: Unlabored Weight 215.5 lb Height 0 in Head Circumference 0.00 cm :45 Pulse 70 /min Comments: Pattern: Regular Respiration Rate 17 /min Comments: Pattern: Unlabored BP Systolic 120 mm[Hg] Comments: Patient Position: Sitting; Cuff Location: Left Arm; Cuff Size: Standard BP Diastolic 72 mm[Hg] Comments: Patient Position: Sitting; Cuff Location: Left Arm; Cuff Size: Standard Weight 215.5 lb Height 0 in Head Circumference 0.00 cm :28 Temperature 98.1 f Comments: Method: Undefined Pulse 72 /min Comments: Pattern: Regular Respiration Rate 18 /min Comments: Pattern: Undefined BP Systolic 122 mm[Hg] Comments: Patient Position: Sitting; Cuff Location: Right Arm; Cuff Size: Standard BP Diastolic 72 mm[Hg] Comments: Patient Position: Sitting; Cuff Location: Right Arm; Cuff Size: Standard Weight 202 lb Height 0 in Head Circumference 0.00 cm :35 Temperature 98.2 f Comments: Method: Oral Pulse 72 /min Comments: Pattern: Regular Respiration Rate 16 /min Comments: Pattern: Unlabored BP Systolic 136 mm[Hg] Comments: Patient Position: Sitting; Cuff Location: Left Arm; Cuff Size: Standard BP Diastolic 72 mm[Hg] Comments: Patient Position: Sitting; Cuff Location: Left Arm; Cuff Size: Standard Weight 0 lb Height 0 in Head Circumference 0.00 cm :37 Temperature 97.5 f Comments: Method: Oral Pulse 76 /min Comments: Pattern: Regular Respiration Rate 18 /min Comments: Pattern: Unlabored BP Systolic 120 mm[Hg] Comments: Patient Position: Sitting; Cuff Location: Right Arm; Cuff Size: Standard BP Diastolic 72 mm[Hg] Comments: Patient Position: Sitting; Cuff Location: Right Arm; Cuff Size: Standard Weight 211 lb Height 0 in Head Circumference 0.00 cm :45 Temperature 98.7 f Comments: Method: Oral Pulse 76 /min Comments: Pattern: Regular Respiration Rate 16 /min Comments: Pattern: Unlabored BP Systolic 120 mm[Hg] Comments: Patient Position: Sitting; Cuff Location: Right Arm; Cuff Size: Standard BP Diastolic 72 mm[Hg] Comments: Patient Position: Sitting; Cuff Location: Right Arm; Cuff Size: Standard Weight 213 lb Height 0 in Head Circumference 0.00 cm :11 Temperature 97.1 f Comments: Method: Undefined Pulse 76 /min Comments: Pattern: Regular Respiration Rate 18 /min Comments: Pattern: Undefined BP Systolic 130 mm[Hg] Comments: Patient Position: Sitting; Cuff Location: Left Arm; Cuff Size: Standard BP Diastolic 78 mm[Hg] Comments: Patient Position: Sitting; Cuff Location: Left Arm; Cuff Size: Standard Weight 208 lb Height 0 in Head Circumference 0.00 cm :22 Temperature 97.9 f Comments: Method: Oral Pulse 80 /min Comments: Pattern: Regular Respiration Rate 18 /min Comments: Pattern: Unlabored BP Systolic 136 mm[Hg] Comments: Patient Position: Sitting; Cuff Location: Right Arm; Cuff Size: Large BP Diastolic 74 mm[Hg] Comments: Patient Position: Sitting; Cuff Location: Right Arm; Cuff Size: Large Weight 0 lb Height 0 in Head Circumference 0.00 cm :08 Temperature 98.2 f Comments: Method: Oral Pulse 80 /min Comments: Pattern: Regular Respiration Rate 16 /min Comments: Pattern: Unlabored BP Systolic 146 mm[Hg] Comments: Patient Position: Sitting; Cuff Location: Right Arm; Cuff Size: Large BP Diastolic 90 mm[Hg] Comments: Patient Position: Sitting; Cuff Location: Right Arm; Cuff Size: Large Weight 207 lb Height 0 in Head Circumference 0.00 cm :04 Temperature 97.7 f Comments: Method: Oral Pulse 76 /min Comments: Pattern: Regular Respiration Rate 16 /min Comments: Pattern: Unlabored BP Systolic 118 mm[Hg] Comments: Patient Position: Sitting; Cuff Location: Left Arm; Cuff Size: Standard BP Diastolic 70 mm[Hg] Comments: Patient Position: Sitting; Cuff Location: Left Arm; Cuff Size: Standard Weight 206 lb Height 0 in Head Circumference 0.00 cm :08 Pulse 70 /min Comments: Pattern: Regular Respiration Rate 18 /min Comments: Pattern: Unlabored BP Systolic 140 mm[Hg] Comments: Patient Position: Sitting; Cuff Location: Left Arm; Cuff Size: Standard BP Diastolic 80 mm[Hg] Comments: Patient Position: Sitting; Cuff Location: Left Arm; Cuff Size: Standard Weight 0 lb Height 0 in Head Circumference 0.00 cm :29 Temperature 98.7 f Comments: Method: Oral Pulse 72 /min Comments: Pattern: Regular Respiration Rate 16 /min Comments: Pattern: Unlabored BP Systolic 142 mm[Hg] Comments: Patient Position: Sitting; Cuff Location: Left Arm; Cuff Size: Standard BP Diastolic 76 mm[Hg] Comments: Patient Position: Sitting; Cuff Location: Left Arm; Cuff Size: Standard Weight 207 lb Height 64 in Body Mass Index Calculated 35.53 kg/m2 Body Surface Area Calculated 1.98 m2 Head Circumference 0.00 cm :00 Temperature 97.9 f Comments: Method: Oral Pulse 76 /min Comments: Pattern: Regular Respiration Rate 16 /min Comments: Pattern: Unlabored BP Systolic 128 mm[Hg] Comments: Patient Position: Sitting; Cuff Location: Left Arm; Cuff Size: Standard BP Diastolic 70 mm[Hg] Comments: Patient Position: Sitting; Cuff Location: Left Arm; Cuff Size: Standard Weight 0 lb Height 0 in Head Circumference 0.00 cm :25 Temperature 97.1 f Comments: Method: Oral Pulse 76 /min Comments: Pattern: Regular Respiration Rate 18 /min Comments: Pattern: Unlabored O2 SAT 97 % Comments: Room air BP Systolic 138 mm[Hg] Comments: Patient Position: Sitting; Cuff Location: Left Arm; Cuff Size: Standard BP Diastolic 78 mm[Hg] Comments: Patient Position: Sitting; Cuff Location: Left Arm; Cuff Size: Standard Weight 211 lb Height 0 in Head Circumference 0.00 cm :26 Temperature 98.5 f Comments: Method: Oral Pulse 76 /min Comments: Pattern: Regular Respiration Rate 22 /min Comments: Pattern: Unlabored BP Systolic 142 mm[Hg] Comments: Patient Position: Sitting; Cuff Location: Left Arm; Cuff Size: Standard BP Diastolic 76 mm[Hg] Comments: Patient Position: Sitting; Cuff Location: Left Arm; Cuff Size: Standard Weight 211 lb Height 0 in Head Circumference 0.00 cm :56 Temperature 97.6 f Comments: Method: Oral Pulse 80 /min Comments: Pattern: Regular Respiration Rate 20 /min Comments: Pattern: Unlabored BP Systolic 154 mm[Hg] Comments: Patient Position: Sitting; Cuff Location: Left Arm; Cuff Size: Large BP Diastolic 80 mm[Hg] Comments: Patient Position: Sitting; Cuff Location: Left Arm; Cuff Size: Large Weight 207.3125 lb Height 0 in Head Circumference 0.00 cm :26 Temperature 97.9 f Comments: Method: Oral Pulse 76 /min Comments: Pattern: Regular BP Systolic 118 mm[Hg] Comments: Patient Position: Undefined; Cuff Location: Undefined; Cuff Size: Undefined BP Diastolic 78 mm[Hg] Comments: Patient Position: Undefined; Cuff Location: Undefined; Cuff Size: Undefined Weight 0 lb Height 0 in Head Circumference 0.00 cm :58 Temperature 97.6 f Comments: Method: Oral Pulse 76 /min Comments: Pattern: Regular Respiration Rate 16 /min Comments: Pattern: Unlabored BP Systolic 146 mm[Hg] Comments: Patient Position: Sitting; Cuff Location: Right Arm; Cuff Size: Large BP Diastolic 74 mm[Hg] Comments: Patient Position: Sitting; Cuff Location: Right Arm; Cuff Size: Large Weight 210 lb Height 65 in Body Mass Index Calculated 34.95 kg/m2 Body Surface Area Calculated 2.02 m2 Head Circumference 0.00 cm :12 Temperature 98.6 f Comments: Method: Oral Respiration Rate 20 /min Comments: Pattern: Unlabored BP Systolic 132 mm[Hg] Comments: Patient Position: Sitting; Cuff Location: Right Arm; Cuff Size: Undefined BP Diastolic 78 mm[Hg] Comments: Patient Position: Sitting; Cuff Location: Right Arm; Cuff Size: Undefined Weight 210 lb Height 65 in Body Mass Index Calculated 34.95 kg/m2 Body Surface Area Calculated 2.02 m2 Head Circumference 0.00 cm Results Date Description Value Details :39 Basic Metabolic Profile (BMP) Comments: [facility] [id number] [place], [address] GAP 9 (Normal) Range: 5-15 CO2 26.0 mmol/L (Normal) Range: 21.0-32.0 CL 104 mmol/L (Normal) Range: 98-107 K 3.8 mmol/L (Normal) Range: 3.5-5.1 NA 139 mmol/L (Normal) Range: 136-145 CA 8.3 mg/dL (Abnormal) Range: 8.5-10.1 BUN/CRE 9.8 {RATIO} (Abnormal) Range: 10-20 EST GFR - AA 55 mL/min (Abnormal) Comments: GFR Calc EST GFR 45 mL/min (Abnormal) Comments: Non- GFR Calc CREAT,SERUM 1.22 mg/dL (Abnormal) Range: 0.55-1.02 Comments: The validity of the calculated GFR AND GFRAA in patients over70 years has not been determined. Clinical correlation isessential. BUN 12 mg/dL (Normal) Range: 7-18 GLU 161 mg/dL (Abnormal) Range: 74-106 Comments: Fasting Glucose result greater than or equal to 126 mg/dLsuggests DIABETES MELLITUS per A.D.A. criteria.Please note revised GLUCOSE reference range [id number]/02/2018. [id number] VITAMIN B-12 (CYANOCOBALAMIN) Comments: PATIENT NOT FASTINGPERFORMED BY: [facility] [address] [facility] [id number] ([id number]) Vitamin B12 362 pg/mL (Normal) Range: 232-1245 [id number] HgA1C , Office (78826) HgA1C , Office 7.1 % (Normal) Range: 4.6 - 7.1 [id number] Blood Glucose , Office (73657) Blood Glucose , Office 135 (Normal) [id number]:55 Basic Metabolic Profile (BMP) Comments: [facility] [id number] [place], [address] GAP 14 (Normal) Range: 5-15 CO2 23.0 mmol/L (Normal) Range: 21.0-32.0 CL 103 mmol/L (Normal) Range: 98-107 K 4.2 mmol/L (Normal) Range: 3.5-5.1 NA 140 mmol/L (Normal) Range: 136-145 CA 8.8 mg/dL (Normal) Range: 8.5-10.1 BUN/CRE 11.5 {RATIO} (Normal) Range: 10-20 Estimated CRCL 33.13 ml/min (Normal) EST GFR - AA 51 mL/min (Abnormal) Comments: GFR Calc EST GFR 42 mL/min (Abnormal) Comments: Non- GFR Calc CREAT,SERUM 1.30 mg/dL (Abnormal) Range: 0.55-1.02 Comments: The validity of the calculated GFR AND GFRAA in patients over70 years has not been determined. Clinical correlation isessential. BUN 15 mg/dL (Normal) Range: 7-18 GLU 225 mg/dL (Abnormal) Range: 74-106 Comments: Glucose result greater than or equal to 200 mg/dLsuggests DIABETES MELLITUS per A.D.A. criteria.Please note revised GLUCOSE reference range /02/2018. [id number] CBC W/Diff, Automated Comments: [facility] [id number] [place], [address] Absolute Lymph 2.08 {X10_3/ul} (Normal) Range: 0.83-4.51 Absolute Neut 5.7 {X10_3/uL} (Normal) Range: 2.0-7.7 IM GRAN % 0.500 % (Normal) Range: 0.0-0.9 Comments: IG% - Immature Granulocytes (promyelocytes, myelocytes andmetamyelocytes) > 1% indicates that a LEFT SHIFT is Present. BASO% 0.3 % (Normal) Range: 0-1 EO% 1.1 % (Normal) Range: 0-5 MONO% 9.2 % (Normal) Range: 0-10 LY% 23.8 % (Normal) Range: 19-41 NEUT% 65.1 % (Normal) Range: 47-70 MPV 10.6 fL (Normal) Range: 6.2-12.0 PLT 249 K/mm3 (Normal) Range: 150-450 RDW SD 44.8 fL (Abnormal) Range: 35.1-43.9 RDW CV 14.7 % (Abnormal) Range: 11.6-14.6 MCHC 32.1 {g/gl} (Normal) Range: 32-36 MCH 27.4 pg (Normal) Range: 27.0-32.0 MCV 85.5 fL (Normal) Range: 81-99 HCT 37.1 % (Normal) Range: 37-47 HGB 11.9 g/dL (Abnormal) Range: 12.0-15.0 RBC 4.34 {M/mm3} (Normal) Range: 4.2-5.4 WBC 8.7 K/mm3 (Normal) Range: 4.4-11.0 :55 Troponin-I Comments: [facility] [id number] [place], [address] TROPONIN-I < 0.015 ng/mL (Normal) Comments: TROPONIN-I EXPECTED VALUES <0.045 Negative 0.045 - 0.590 Consistent with Cardiac Damage > OR = 0.600 Critical Value Not every elevated troponin is indicative of ID. T hesevalues should be used with clinical judgement in examiningthe patient's clinical picture for diagnosis. To establisha diagnosis of ID versus myocardial injury, there must be ademonstrated rise and/ or fall in the troponin values, inaddition to ischemic symptoms, EKG changes, new regionalwall motion abnormality, and/or angiographical evidence. PLEASE NOTE: REFERENCE RANGES EDITED 17:05 Basic Metabolic Profile (BMP) Comments: [facility] [id number] [place], [place], [id number] GAP 8 (Normal) Range: 5-15 CO2 28.0 mmol/L (Normal) Range: 21.0-32.0 CL 102 mmol/L (Normal) Range: 98-107 K 4.3 mmol/L (Normal) Range: 3.5-5.1 NA 138 mmol/L (Normal) Range: 136-145 CA 8.9 mg/dL (Normal) Range: 8.5-10.1 BUN/CRE 13.6 {RATIO} (Normal) Range: 10-20 Estimated CRCL 32.63 ml/min (Normal) EST GFR - AA 50 mL/min (Abnormal) Comments: GFR Calc EST GFR 42 mL/min (Abnormal) Comments: Non- GFR Calc CREAT,SERUM 1.32 mg/dL (Abnormal) Range: 0.55-1.02 Comments: The validity of the calculated GFR AND GFRAA in patients over70 years has not been determined. Clinical correlation isessential. BUN 18 mg/dL (Normal) Range: 7-18 GLU 188 mg/dL (Abnormal) Range: 74-106 Comments: Fasting Glucose result greater than or equal to 126 mg/dLsuggests DIABETES MELLITUS per A.D.A. criteria.Please note revised GLUCOSE reference range [id number]/02/2018. :05 CBC W/Diff, Automated Comments: [facility] [id number] [place], [place], [id number] Absolute Lymph 2.24 {X10_3/ul} (Normal) Range: 0.83-4.51 Absolute Neut 5.2 {X10_3/uL} (Normal) Range: 2.0-7.7 IM GRAN % 0.500 % (Normal) Range: 0.0-0.9 Comments: IG% - Immature Granulocytes (promyelocytes, myelocytes andmetamyelocytes) > 1% indicates that a LEFT SHIFT is Present. BASO% 0.2 % (Normal) Range: 0-1 EO% 1.6 % (Normal) Range: 0-5 MONO% 8.2 % (Normal) Range: 0-10 LY% 26.9 % (Normal) Range: 19-41 NEUT% 62.6 % (Normal) Range: 47-70 MPV 10.0 fL (Normal) Range: 6.2-12.0 PLT 218 K/mm3 (Normal) Range: 150-450 RDW SD 46.1 fL (Abnormal) Range: 35.1-43.9 RDW CV 14.8 % (Abnormal) Range: 11.6-14.6 MCHC 31.2 {g/gl} (Abnormal) Range: 32-36 MCH 26.6 pg (Abnormal) Range: 27.0-32.0 MCV 85.1 fL (Normal) Range: 81-99 HCT 39.4 % (Normal) Range: 37-47 HGB 12.3 g/dL (Normal) Range: 12.0-15.0 RBC 4.63 {M/mm3} (Normal) Range: 4.2-5.4 WBC 8.3 K/mm3 (Normal) Range: 4.4-11.0 :05 Troponin-I Comments: [facility] [address] [place], [place], [id number] TROPONIN-I 0.020 ng/mL (Normal) Comments: TROPONIN-I EXPECTED VALUES <0.045 Negative 0.045 - 0.590 Consistent with Cardiac Damage > OR = 0.600 Critical Value Not every elevated troponin is indicative of ID. T hesevalues should be used with clinical judgement in examiningthe patient's clinical picture for diagnosis. To establisha diagnosis of ID versus myocardial injury, there must be ademonstrated rise and/ or fall in the troponin values, inaddition to ischemic symptoms, EKG changes, new regionalwall motion abnormality, and/or angiographical evidence. PLEASE NOTE: REFERENCE RANGES EDITED 06/23/1727-Aug-[id number] HgA1C , Office (17640) HgA1C , Office 7.6 % (Abnormal) Range: 4.6 - 7.1 [id number] Blood Glucose , Office (61325) Blood Glucose , Office 142 (Normal) 80-[id number]:51 Basic Metabolic Profile (BMP) Comments: [facility] [address] [place], [place], [address] GAP 9 (Normal) Range: 5-15 CO2 25.0 mmol/L (Normal) Range: 21.0-32.0 CL 105 mmol/L (Normal) Range: 98-107 K 4.1 mmol/L (Normal) Range: 3.5-5.1 NA 139 mmol/L (Normal) Range: 136-145 CA 8.8 mg/dL (Normal) Range: 8.5-10.1 BUN/CRE 11.6 {RATIO} (Normal) Range: 10-20 Estimated CRCL 35.59 ml/min (Normal) EST GFR - AA 56 mL/min (Abnormal) Comments: GFR Calc EST GFR 46 mL/min (Abnormal) Comments: Non- GFR Calc CREAT,SERUM 1.21 mg/dL (Abnormal) Range: 0.55-1.02 Comments: The validity of the calculated GFR AND GFRAA in patients over70 years has not been determined. Clinical correlation isessential. BUN 14 mg/dL (Normal) Range: 7-18 GLU 171 mg/dL (Abnormal) Range: 74-106 Comments: Fasting Glucose result greater than or equal to 126 mg/dLsuggests DIABETES MELLITUS per A.D.A. criteria.Please note revised GLUCOSE reference range ghitzamav29/02/2018. :51 CBC W/Diff, Automated Comments: [facility] [id number] [place], [address] Absolute Lymph 2.43 {X10_3/ul} (Normal) Range: 0.83-4.51 Absolute Neut 6.0 {X10_3/uL} (Normal) Range: 2.0-7.7 IM GRAN % 0.400 % (Normal) Range: 0.0-0.9 Comments: IG% - Immature Granulocytes (promyelocytes, myelocytes andmetamyelocytes) > 1% indicates that a LEFT SHIFT is Present. BASO% 0.4 % (Normal) Range: 0-1 EO% 1.5 % (Normal) Range: 0-5 MONO% 9.7 % (Normal) Range: 0-10 LY% 25.3 % (Normal) Range: 19-41 NEUT% 62.7 % (Normal) Range: 47-70 MPV 10.2 fL (Normal) Range: 6.2-12.0 PLT 235 K/mm3 (Normal) Range: 150-450 RDW SD 46.2 fL (Abnormal) Range: 35.1-43.9 RDW CV 14.8 % (Abnormal) Range: 11.6-14.6 MCHC 31.0 {g/gl} (Abnormal) Range: 32-36 MCH 26.2 pg (Abnormal) Range: 27.0-32.0 MCV 84.5 fL (Normal) Range: 81-99 HCT 40.3 % (Normal) Range: 37-47 HGB 12.5 g/dL (Normal) Range: 12.0-15.0 RBC 4.77 {M/mm3} (Normal) Range: 4.2-5.4 WBC 9.6 K/mm3 (Normal) Range: 4.4-11.0 :51 Troponin-I Comments: [facility] [id number] [place], [place], [phone] TROPONIN-I < 0.015 ng/mL (Normal) Comments: TROPONIN-I EXPECTED VALUES <0.045 Negative 0.045 - 0.590 Consistent with Cardiac Damage > OR = 0.600 Critical Value Not every elevated troponin is indicative of ID. T hesevalues should be used with clinical judgement in examiningthe patient's clinical picture for diagnosis. To establisha diagnosis of ID versus myocardial injury, there must be ademonstrated rise and/ or fall in the troponin values, inaddition to ischemic symptoms, EKG changes, new regionalwall motion abnormality, and/or angiographical evidence. PLEASE NOTE: REFERENCE RANGES EDITED 06/23/1728-May-[id number] CALCIFEDIOL ([id number]) Comments: PATIENT NOT FASTINGPERFORMED BY: [facility] [id number] Vitamin D, 25-Hydroxy 20.2 ng/mL (Abnormal) Range: 30.0-100.0 Comments: Vitamin D deficiency has been defined by the [place] of[employer] and an Endocrine Society practice guideline as alevel of serum 25-OH vitamin D less than 20 ng/mL (1,2).The Endocrine Society went on to further define vitamin Dinsufficiency as a level between 21 and 29 ng/mL (2).1. IOM ([place] of [employer]). 2010. Dietary reference intakes for calcium and D. [place]: The National Academies Press.2. Bobo MF, Estrellita NC, Daphnie-Aneesh CALIX, et al. Evaluation, treatment, and prevention of vitamin D deficiency: an Endocrine Society clinical practice guideline. JCEM. 2010; 96(7):1911-30. [id number] VITAMIN B-12 (CYANOCOBALAMIN) Comments: PATIENT NOT FASTINGPERFORMED BY: [facility] Hospital[facility]gqmvw[facility] [id number] ([id number]) Vitamin B12 311 pg/mL (Normal) Range: 232-1245 [id number] HgA1C , Office (82486) HgA1C , Office 7.3 % (Abnormal) Range: 4.6 - 7.1 [id number]:26 Blood Glucose , Office (01631) Blood Glucose , Office 136 (Normal) [id number] Basic Metabolic Profile (BMP) Comments: 'TROP' Serial specimen #1, #2, #3, or #4: 1[facility] [id number], [id number] GAP 11 (Normal) Range: 5-15 CO2 27.0 mmol/L (Normal) Range: 21.0-32.0 CL 104 mmol/L (Normal) Range: 98-107 K 4.4 mmol/L (Normal) Range: 3.5-5.1 NA 142 mmol/L (Normal) Range: 136-145 CA 8.5 mg/dL (Normal) Range: 8.5-10.1 BUN/CRE 17.5 {RATIO} (Normal) Range: 10-20 Estimated CRCL 34.18 ml/min (Normal) EST GFR - AA 53 mL/min (Abnormal) Comments: GFR Calc EST GFR 44 mL/min (Abnormal) Comments: Non- GFR Calc CREAT,SERUM 1.26 mg/dL (Abnormal) Range: 0.55-1.02 Comments: The validity of the calculated GFR AND GFRAA in patients over70 years has not been determined. Clinical correlation isessential. BUN 22 mg/dL (Abnormal) Range: 7-18 GLU 184 mg/dL (Abnormal) Range: 74-106 Comments: Fasting Glucose result greater than or equal to 126 mg/dLsuggests DIABETES MELLITUS per A.D.A. criteria.Please note revised GLUCOSE reference range gusykxzjm39/02/2018. 93-Orx-[id number]:56 CBC W/Diff, Automated Comments: [facility] Swzfetwbkx2513 [facility] [address] [place], [place], [id number] Absolute Lymph 3.30 {X10_3/ul} (Normal) Range: 0.83-4.51 Absolute Neut 4.9 {X10_3/uL} (Normal) Range: 2.0-7.7 IM GRAN % 0.300 % (Normal) Range: 0.0-0.9 Comments: IG% - Immature Granulocytes (promyelocytes, myelocytes andmetamyelocytes) > 1% indicates that a LEFT SHIFT is Present. BASO% 0.3 % (Normal) Range: 0-1 EO% 1.7 % (Normal) Range: 0-5 MONO% 9.4 % (Normal) Range: 0-10 LY% 35.4 % (Normal) Range: 19-41 NEUT% 52.9 % (Normal) Range: 47-70 MPV 10.3 fL (Normal) Range: 6.2-12.0 PLT 279 K/mm3 (Normal) Range: 150-450 RDW SD 46.2 fL (Abnormal) Range: 35.1-43.9 RDW CV 15.3 % (Abnormal) Range: 11.6-14.6 MCHC 30.7 {g/gl} (Abnormal) Range: 32-36 MCH 25.5 pg (Abnormal) Range: 27.0-32.0 MCV 82.9 fL (Normal) Range: 81-99 HCT 38.7 % (Normal) Range: 37-47 HGB 11.9 g/dL (Abnormal) Range: 12.0-15.0 RBC 4.67 {M/mm3} (Normal) Range: 4.2-5.4 WBC 9.3 K/mm3 (Normal) Range: 4.4-11.0 [id number]-Lcz-135916:56 Troponin-I Comments: 'TROP' Serial specimen #1, #2, #3, or #4: [address] [place] [address] [id number] [facility] [place], [address] TROPONIN-I < 0.02 ng/mL (Normal) Comments: TROPONIN-I EXPECTED VALUES <0.05 NEGATIVE 0.06 - 0.59 AT RISK OF ID > OR = 0.60 SUGGEST ID [id number] Basic Metabolic Profile (BMP) Comments: 'TROP' Serial specimen #1, #2, #3, or #4: [address] [place] [address] Loinpdmcja7977 [facility] [place], [address] GAP 10 (Normal) Range: 5-15 CO2 25.0 mmol/L (Normal) Range: 21.0-32.0 CL 102 mmol/L (Normal) Range: 98-107 K 4.7 mmol/L (Normal) Range: 3.5-5.1 NA 137 mmol/L (Normal) Range: 136-145 CA 8.7 mg/dL (Normal) Range: 8.5-10.1 BUN/CRE 25.0 {RATIO} (Abnormal) Range: 10-20 Estimated CRCL 37.13 ml/min (Normal) EST GFR - AA 58 mL/min (Abnormal) Comments: GFR Calc EST GFR 48 mL/min (Abnormal) Comments: Non- GFR Calc CREAT,SERUM 1.16 mg/dL (Abnormal) Range: 0.55-1.02 Comments: The validity of the calculated GFR AND GFRAA in patients over70 years has not been determined. Clinical correlation isessential. BUN 29 mg/dL (Abnormal) Range: 7-18 GLU 173 mg/dL (Abnormal) Range: 74-106 Comments: Fasting Glucose result greater than or equal to 126 mg/dLsuggests DIABETES MELLITUS per A.D.A. criteria.Please note revised GLUCOSE reference range kjwltealp59/02/2018. 80-[id number]-[id number] CBC W/Diff, Automated Comments: [facility] [address] [place], [place], [address] Absolute Lymph 3.48 {X10_3/ul} (Normal) Range: 0.83-4.51 Absolute Neut 5.9 {X10_3/uL} (Normal) Range: 2.0-7.7 IM GRAN % 0.200 % (Normal) Range: 0.0-0.9 Comments: IG% - Immature Granulocytes (promyelocytes, myelocytes andmetamyelocytes) > 1% indicates that a LEFT SHIFT is Present. BASO% 0.3 % (Normal) Range: 0-1 EO% 1.8 % (Normal) Range: 0-5 MONO% 7.7 % (Normal) Range: 0-10 LY% 33.4 % (Normal) Range: 19-41 NEUT% 56.6 % (Normal) Range: 47-70 MPV 10.2 fL (Normal) Range: 6.2-12.0 PLT 281 K/mm3 (Normal) Range: 150-450 RDW SD 44.6 fL (Abnormal) Range: 35.1-43.9 RDW CV 14.9 % (Abnormal) Range: 11.6-14.6 MCHC 31.1 {g/gl} (Abnormal) Range: 32-36 MCH 25.5 pg (Abnormal) Range: 27.0-32.0 MCV 82.1 fL (Normal) Range: 81-99 HCT 38.6 % (Normal) Range: 37-47 HGB 12.0 g/dL (Normal) Range: 12.0-15.0 RBC 4.70 {M/mm3} (Normal) Range: 4.2-5.4 WBC 10.4 K/mm3 (Normal) Range: 4.4-11.0 96-Dph-[id number]:33 Troponin-I Comments: 'TROP' Serial specimen #1, #2, #3, or #4: [facility] [address]thres[address] [place], [place], [address] TROPONIN-I 0.14 ng/mL (Abnormal) Comments: TROPONIN-I EXPECTED VALUES <0.05 NEGATIVE 0.06 - 0.59 AT RISK OF ID > OR = 0.60 SUGGEST ID [id number] HgA1C , Office (45080) HgA1C , Office 7.9 % (Abnormal) Range: 4.6 - 7.1 8-Jba-825787:15 Blood Glucose , Office (32450) Blood Glucose , Office 166 (Normal) [id number]-Vci-581252:25 Basic Metabolic Profile (BMP) Comments: Order Date: 12/13/16Order Info: [id number] - *BMPComments: Reason:[facility] [address] [place], [place], [address] GAP 9 (Normal) Range: 5-15 CO2 29.0 mmol/L (Normal) Range: 21.0-32.0 CL 99 mmol/L (Normal) Range: 98-107 K 5.1 mmol/L (Normal) Range: 3.5-5.1 NA 137 mmol/L (Normal) Range: 136-145 CA 9.0 mg/dL (Normal) Range: 8.5-10.1 BUN/CRE 18.0 {RATIO} (Normal) Range: 10-20 EST GFR - AA 62 mL/min (Normal) Comments: GFR Calc EST GFR 51 mL/min (Abnormal) Comments: Non- GFR Calc CREAT,SERUM 1.11 mg/dL (Abnormal) Range: 0.55-1.02 Comments: The validity of the calculated GFR AND GFRAA in patients over70 years has not been determined. Clinical correlation isessential. BUN 20 mg/dL (Abnormal) Range: 7-18 GLU 227 mg/dL (Abnormal) Range: 70-110 Comments: Glucose result greater than or equal to 200 mg/dLsuggests DIABETES MELLITUS per A.D.A. criteria. [id number]-[id number]:27 Basic Metabolic Profile (BMP) Comments: Order Date: 11/19/16Order Info: [id number] - *BMPComments: Reason:[facility] [address] [place], [place], [id number] GAP 8 (Normal) Range: 5-15 CO2 27.0 mmol/L (Normal) Range: 21.0-32.0 CL 101 mmol/L (Normal) Range: 98-107 K 3.9 mmol/L (Normal) Range: 3.5-5.1 NA 136 mmol/L (Normal) Range: 136-145 CA 9.0 mg/dL (Normal) Range: 8.5-10.1 BUN/CRE 16.5 {RATIO} (Normal) Range: 10-20 EST GFR - AA 91 mL/min (Normal) Comments: GFR Calc EST GFR 75 mL/min (Normal) Comments: Non- GFR Calc CREAT,SERUM 0.79 mg/dL (Normal) Range: 0.55-1.02 Comments: The validity of the calculated GFR AND GFRAA in patients over70 years has not been determined. Clinical correlation isessential. BUN 13 mg/dL (Normal) Range: 7-18 GLU 210 mg/dL (Abnormal) Range: 70-110 Comments: Glucose result greater than or equal to 200 mg/dLsuggests DIABETES MELLITUS per A.D.A. criteria. 26-Kyb-[id number]:27 Partial Thromboplast Time Comments: Order Date: 11/19/16Order Info: [id number] - *PT/INROrder Info: [id number] - *PTT-Partial Thromboplastin TimeWTuscarawas Hospital [address]imsjvqi05[address] [place], [place], [address] PTT 29.4 s (Normal) Range: 24.1-36.2 :27 Prothrombin Time w/INR Comments: Order Date: 11/19/16Order Info: [id number] - *PT/INROrder Info: [id number] - *PTT-Partial Thromboplastin TimeWTuscarawas Hospital [address]wikdrj[address] [place], [place], [id number] INR 1.1 (Normal) PROTIME 13.4 s (Normal) Range: 11.7-14.9 :05 Basic Metabolic Profile (BMP) Comments: 'TROP' Serial specimen #1, #2, #3, or #4: 1[facility] [address] [place], [place], [address] GAP 10 (Normal) Range: 5-15 CO2 25.0 mmol/L (Normal) Range: 21.0-32.0 CL 104 mmol/L (Normal) Range: 98-107 K 3.8 mmol/L (Normal) Range: 3.5-5.1 NA 139 mmol/L (Normal) Range: 136-145 CA 8.6 mg/dL (Normal) Range: 8.5-10.1 BUN/CRE 16.7 {RATIO} (Normal) Range: 10-20 Estimated CRCL 43.74 ml/min (Normal) EST GFR - AA 112 mL/min (Normal) Comments: GFR Calc EST GFR 93 mL/min (Normal) Comments: Non- GFR Calc CREAT,SERUM 0.66 mg/dL (Normal) Range: 0.55-1.02 Comments: The validity of the calculated GFR AND GFRAA in patients over70 years has not been determined. Clinical correlation isessential. BUN 11 mg/dL (Normal) Range: 7-18 GLU 195 mg/dL (Abnormal) Range: 70-110 Comments: Fasting Glucose result greater than or equal to 126 mg/dLsuggests DIABETES MELLITUS per A.D.A. criteria. :05 BNP,B-Type NATRIURETIC PEPTIDE Comments: [facility] [address] [place], [place], [id number] B-TYPE ANDREW PEP 316.0 pg/mL (Abnormal) Range: 0-100 :05 CBC W/Diff, Automated Comments: [facility] [address] [place], [place], [address] Absolute Lymph 1.26 {X10_3/ul} (Normal) Range: 0.83-4.51 Absolute Neut 7.5 {X10_3/uL} (Normal) Range: 2.0-7.7 IM GRAN % 0.400 % (Normal) Range: 0.0-0.9 Comments: IG% - Immature Granulocytes (promyelocytes, myelocytes andmetamyelocytes) > 1% indicates that a LEFT SHIFT is Present. BASO% 0.2 % (Normal) Range: 0-1 EO% 1.4 % (Normal) Range: 0-5 MONO% 8.0 % (Normal) Range: 0-10 LY% 13.0 % (Abnormal) Range: 19-41 NEUT% 77.0 % (Abnormal) Range: 47-70 MPV 9.8 fL (Normal) Range: 6.2-12.0 PLT 272 K/mm3 (Normal) Range: 150-450 RDW SD 43.9 fL (Normal) Range: 35.1-43.9 RDW CV 14.8 % (Abnormal) Range: 11.6-14.6 MCHC 31.0 {g/gl} (Abnormal) Range: 32-36 MCH 25.5 pg (Abnormal) Range: 27.0-32.0 MCV 82.2 fL (Normal) Range: 81-99 HCT 36.1 % (Abnormal) Range: 37-47 HGB 11.2 g/dL (Abnormal) Range: 12.0-15.0 RBC 4.39 {M/mm3} (Normal) Range: 4.2-5.4 WBC 9.7 K/mm3 (Normal) Range: 4.4-11.0 13-Nov-20169:05 Troponin-I Comments: 'TROP' Serial specimen #1, #2, #3, or #4: [address] [place] [address] L[address]iv[address]0775 [facility] [place], [address] TROPONIN-I 0.15 ng/mL (Abnormal) Comments: TROPONIN-I EXPECTED VALUES <0.05 NEGATIVE 0.06 - 0.59 AT RISK OF ID > OR = 0.60 SUGGEST ID [id number] Basic Metabolic Profile (BMP) Comments: 'TROP' Serial specimen #1, #2, #3, or #4: [address] [place] [address] [address] [place], [address] GAP 13 (Normal) Range: 5-15 CO2 22.0 mmol/L (Normal) Range: 21.0-32.0 CL 104 mmol/L (Normal) Range: 98-107 K 3.4 mmol/L (Abnormal) Range: 3.5-5.1 NA 139 mmol/L (Normal) Range: 136-145 CA 8.6 mg/dL (Normal) Range: 8.5-10.1 BUN/CRE 13.0 {RATIO} (Normal) Range: 10-20 Estimated CRCL 40.21 ml/min (Normal) EST GFR - AA 94 mL/min (Normal) Comments: GFR Calc EST GFR 78 mL/min (Normal) Comments: Non- GFR Calc CREAT,SERUM 0.77 mg/dL (Normal) Range: 0.55-1.02 Comments: The validity of the calculated GFR AND GFRAA in patients over70 years has not been determined. Clinical correlation isessential. BUN 10 mg/dL (Normal) Range: 7-18 GLU 233 mg/dL (Abnormal) Range: 70-110 Comments: Glucose result greater than or equal to 200 mg/dLsuggests DIABETES MELLITUS per A.D.A. criteria. 2-Yiy-500076:10 CBC W/Diff, Automated Comments: [facility] [address] [place], [place], [address] Absolute Lymph 2.88 {X10_3/ul} (Normal) Range: 0.83-4.51 Absolute Neut 8.7 {X10_3/uL} (Abnormal) Range: 2.0-7.7 IM GRAN % 0.500 % (Normal) Range: 0.0-0.9 Comments: IG% - Immature Granulocytes (promyelocytes, myelocytes andmetamyelocytes) > 1% indicates that a LEFT SHIFT is Present. BASO% 0.2 % (Normal) Range: 0-1 EO% 1.3 % (Normal) Range: 0-5 MONO% 7.7 % (Normal) Range: 0-10 LY% 22.5 % (Normal) Range: 19-41 NEUT% 67.8 % (Normal) Range: 47-70 MPV 10.2 fL (Normal) Range: 6.2-12.0 PLT 343 K/mm3 (Normal) Range: 150-450 RDW SD 43.5 fL (Normal) Range: 35.1-43.9 RDW CV 14.7 % (Abnormal) Range: 11.6-14.6 MCHC 31.6 {g/gl} (Abnormal) Range: 32-36 MCH 25.8 pg (Abnormal) Range: 27.0-32.0 MCV 81.6 fL (Normal) Range: 81-99 HCT 37.6 % (Normal) Range: 37-47 HGB 11.9 g/dL (Abnormal) Range: 12.0-15.0 RBC 4.61 {M/mm3} (Normal) Range: 4.2-5.4 WBC 12.8 K/mm3 (Abnormal) Range: 4.4-11.0 :10 Thyroid Stim Hormone (TSH) Comments: 'TROP' Serial specimen #1, #2, #3, or #4: [address] [place] [address] [place], [address] TSH 1.29 {uIU/mL} (Normal) Range: 0.358-3.74 :10 Troponin-I Comments: 'TROP' Serial specimen #1, #2, #3, or #4: [address] [place] [address] [place], [address] TROPONIN-I < 0.02 ng/mL (Normal) Comments: TROPONIN-I EXPECTED VALUES <0.05 NEGATIVE 0.06 - 0.59 AT RISK OF ID > OR = 0.60 SUGGEST ID :58 HgA1C , Office (26232) HgA1C , Office 7.6 % (Abnormal) Range: 4.6 - 7.1 :58 Blood Glucose , Office (16053) Blood Glucose , Office 159 (Normal) :50 CBC W/Diff, Automated Comments: [facility] [address] [place], [address] Absolute Lymph 1.46 {X10_3/ul} (Normal) Range: 0.83-4.51 Absolute Neut 5.1 {X10_3/uL} (Normal) Range: 2.0-7.7 IM GRAN % 0.400 % (Normal) Range: 0.0-0.9 Comments: IG% - Immature Granulocytes (promyelocytes, myelocytes andmetamyelocytes) > 1% indicates that a LEFT SHIFT is Present. BASO% 0.4 % (Normal) Range: 0-1 EO% 1.1 % (Normal) Range: 0-5 MONO% 8.5 % (Normal) Range: 0-10 LY% 19.9 % (Normal) Range: 19-41 NEUT% 69.7 % (Normal) Range: 47-70 MPV 10.4 fL (Normal) Range: 6.2-12.0 PLT 324 K/mm3 (Normal) Range: 150-450 RDW SD 44.2 fL (Abnormal) Range: 35.1-43.9 RDW CV 14.9 % (Abnormal) Range: 11.6-14.6 MCHC 31.7 {g/gl} (Abnormal) Range: 32-36 MCH 26.0 pg (Abnormal) Range: 27.0-32.0 MCV 82.1 fL (Normal) Range: 81-99 HCT 34.4 % (Abnormal) Range: 37-47 HGB 10.9 g/dL (Abnormal) Range: 12.0-15.0 RBC 4.19 {M/mm3} (Abnormal) Range: 4.2-5.4 WBC 7.3 K/mm3 (Normal) Range: 4.4-11.0 35-Gnb-704659:50 CCP IgG Antibodies Comments: [facility] (refer to report for specific site)refer to report for address and phone number ANTI-CCP [id number] 4 {units} (Normal) Range: 0-19 Comments: Negative <20 Weak positive 20 - 39 Moderate positive 40 - 59 Strong positive >59 57-Knh-683839:50 Comprehensive Metabolic Profil Comments: [facility] [address] [place], [place], [address] GAP 9 (Normal) Range: 5-15 CO2 26.0 mmol/L (Normal) Range: 21.0-32.0 CL 104 mmol/L (Normal) Range: 98-107 K 3.7 mmol/L (Normal) Range: 3.5-5.1 NA 139 mmol/L (Normal) Range: 136-145 T BILI 0.40 mg/dL (Normal) Range: 0.20-1.00 ALT 14 U/L (Normal) Range: 12-78 ALK P 101 U/L (Normal) Range: 45-117 AST 14 U/L (Abnormal) Range: 15-37 CA 8.9 mg/dL (Normal) Range: 8.5-10.1 A/G 0.9 {RATIO} (Normal) Range: 0.9-2.4 GLOB 3.6 g/dL (Abnormal) Range: 2.3-3.5 ALB 3.2 g/dL (Abnormal) Range: 3.4-5.0 T PROT 6.8 g/dL (Normal) Range: 6.4-8.2 BUN/CRE 17.7 {RATIO} (Normal) Range: 10-20 EST GFR - AA 109 mL/min (Normal) Comments: GFR Calc EST GFR 90 mL/min (Normal) Comments: Non- GFR Calc CREAT,SERUM 0.68 mg/dL (Normal) Range: 0.55-1.02 Comments: The validity of the calculated GFR AND GFRAA in patients over70 years has not been determined. Clinical correlation isessential. BUN 12 mg/dL (Normal) Range: 7-18 GLU 150 mg/dL (Abnormal) Range: 70-110 Comments: Fasting Glucose result greater than or equal to 126 mg/dLsuggests DIABETES MELLITUS per A.D.A. criteria. [id number]-Ile-[id number]:50 CRP Comments: [facility] Aq[address]jdapf[address] [facility] [place], [place], [id number] C-REACTIVE PROT 8.89 mg/L (Abnormal) Range: 0.0-3.0 Comments: C-Reactive Protein (CRP) provides useful information for thediagnosis, therapy and monitoring of inflammatory processesand associated diseases. For the evaluation of Relative Riskfor Cardiovascular Dise ase, a High Sensitivity CRP (HSCRP)should be ordered. 95-Kej-163511:50 Erythrocyte Sed Rate Comments: [facility] Phgdjmsbku6828 [facility] [place], [place], [address] SED RATE 27 mm/h (Normal) Range: 0-30 04-Prw-799108:50 Hep B Surface Antibodies Comments: [facility] (refer to report for specific site)refer to report for address and phone number Hep B Booker AB Non Reactive (Normal) Comments: Non Reactive: Inconsistent with immunity, less than 10 mIU/mL Reactive: Consistent with immunity, greater than 9.9 mIU/ mL :50 Hepatitis B Surface Ag Comments: [facility] (refer to report for specific site)refer to report for address and phone number HB SURF AG Negative (Normal) Comments: Performed at: [address] [id number] Director: Christopher Sullivan PhD, Phone: [phone] at: [address] [id number] Director: Loco Ivey MD, Phone: [phone] :[phone] Hepatitis C Antibodies Comments: [facility] (refer to report for specific site)refer to report for address and phone number HEP C AB <0.1 {s/co_ratio} (Normal) Range: 0.0-0.9 Comments: Negative: < 0.8 Indeterminate: 0.8 - 0.9 Positive: > 0.9 The CDC recommends that a positive HCV antibody result be followed up with a HCV Nucleic Acid Amplification test (318469). 44-Ohz-477632:50 Rheumatoid Factor Comments: [facility] [address] [place], [address] RHEUMATOID FAC < 10.0 {IU/mL} (Normal) :50 Uric Acid Comments: [facility] Ozopcvtczk2467 [facility] [place], [address] URIC 7.1 mg/dL (Abnormal) Range: 2.6-6.0 Comments: The drugs N-Acetylcysteine and Metamizole may falselydepress this assay. :03 Unable to Void SPRCS (Normal) Comments: PATIENT WAS FASTINGPERFORMED BY: [address] [id number] Comments: The patient was not able to render a urine sample and has beeninstructed to return for a urine collection at their earliestconvenience. The urine testing that you have requested hasbeen deleted from th is report. When the patient returns andprovides a urine specimen, the urine testing will be performedand separately reported. :03 VITAMIN B-12 (CYANOCOBALAMIN) Comments: PATIENT WAS FASTINGPERFORMED BY: BELK[facility] [id number] ([id number]) Vitamin B12 264 pg/mL (Normal) Range: 211-946 :03 METABOLIC PANEL, COMPREHENSIVE Comments: PATIENT WAS FASTINGPERFORMED BY: [facility] [id number] (84447) ALT (SGPT) 7 [iU]/L (Normal) Range: 0-32 AST (SGOT) 15 [iU]/L (Normal) Range: 0-40 Alkaline Phosphatase, S 104 [iU]/L (Normal) Range: 39-117 Bilirubin, Total 0.4 mg/dL (Normal) Range: 0.0-1.2 A/G Ratio 1.7 (Normal) Range: 1.2-2.2 Globulin, Total 2.3 g/dL (Normal) Range: 1.5-4.5 Albumin, Serum 3.9 g/dL (Normal) Range: 3.5-4.8 Protein, Total, Serum 6.2 g/dL (Normal) Range: 6.0-8.5 Calcium, Serum 9.1 mg/dL (Normal) Range: 8.7-10.3 Carbon Dioxide, Total 23 mmol/L (Normal) Range: 18-29 Chloride, Serum 100 mmol/L (Normal) Range: 96-106 Potassium, Serum 3.9 mmol/L (Normal) Range: 3.5-5.2 Sodium, Serum 140 mmol/L (Normal) Range: 134-144 BUN/Creatinine Ratio 11 (Abnormal) Range: 12-28 eGFR If Africn Am 96 mL/min/1.73 (Normal) eGFR If NonAfricn Am 84 mL/min/1.73 (Normal) Creatinine, Serum 0.71 mg/dL (Normal) Range: 0.57-1.00 BUN 8 mg/dL (Normal) Range: 8-27 Glucose, Serum 170 mg/dL (Abnormal) Range: 65-99 :03 LIPID PANEL (83061) Comments: PATIENT WAS FASTINGPERFORMED BY: [facility] [id number] VLDL Cholesterol Jyoti VLDLCH mg/dL (Normal) Range: 5-40 Comments: The calculation for the VLDL cholesterol is not valid whentriglyceride level is >400 mg/dL.Triglyceride result indicated is too high for an accurate LDLcholesterol estimation. HDL Cholesterol 26 mg/dL (Abnormal) Triglycerides 542 mg/dL (Abnormal) Range: 0-149 Cholesterol, Total 183 mg/dL (Normal) Range: 100-199 62-Ycj-24570:03 CBC W/AUTO DIFF WBC (72133) Comments: PATIENT WAS FASTINGPERFORMED BY: [facility] Rptscl3899 [facility] [id number] Immature Grans (Abs) 0.0 {x10E3/uL} (Normal) Range: 0.0-0.1 Immature Granulocytes 0 % (Normal) Baso (Absolute) 0.0 {x10E3/uL} (Normal) Range: 0.0-0.2 Eos (Absolute) 0.1 {x10E3/uL} (Normal) Range: 0.0-0.4 Monocytes(Absolute) 0.7 {x10E3/uL} (Normal) Range: 0.1-0.9 Lymphs (Absolute) 1.5 {x10E3/uL} (Normal) Range: 0.7-3.1 Neutrophils (Absolute) 5.8 {x10E3/uL} (Normal) Range: 1.4-7.0 Basos 0 % (Normal) Eos 2 % (Normal) Monocytes 8 % (Normal) Lymphs 18 % (Normal) Neutrophils 72 % (Normal) Platelets 287 {x10E3/uL} (Normal) Range: 150-379 RDW 15.4 % (Normal) Range: 12.3-15.4 MCHC 30.8 g/dL (Abnormal) Range: 31.5-35.7 MCH 25.1 pg (Abnormal) Range: 26.6-33.0 MCV 81 fL (Normal) Range: 79-97 Hematocrit 35.1 % (Normal) Range: 34.0-46.6 Hemoglobin 10.8 g/dL (Abnormal) Range: 11.1-15.9 RBC 4.31 {x10E6/uL} (Normal) Range: 3.77-5.28 WBC 8.1 {x10E3/uL} (Normal) Range: 3.4-10.8 :48 HgA1C , Office (93554) HgA1C , Office 8.0 % (Abnormal) Range: 4.6 - 7.1 :48 Blood Glucose , Office (15136) Blood Glucose , Office 166 (Normal) :06 CALCIFEDIOL (04206) Comments: PATIENT NOT FASTINGPERFORMED BY: [facility]6370 [facility] [id number] Vitamin D, 25-Hydroxy 51.1 ng/mL (Normal) Range: 30.0-100.0 Comments: Vitamin D deficiency has been defined by the [place] of[facility] Hospitalcine and an Endocrine Society practice guideline as alevel of serum 25-OH vitamin D less than 20 ng/mL (1,2).The Endocrine Society went on to further define vitamin Dinsufficiency as a level between 21 and 29 ng/mL (2).1. IOM ([place] of Medicine). 2010. Dietary reference intakes for calcium and D. [place]: The National Academies Press.2. Bobo MF, Estrellita NC, Maddi CALIX, et al. Evaluation, treatment, and prevention of vitamin D deficiency: an Endocrine Society clinical practice guideline. JCEM. 2010; 96(7):1911-30. :06 CBC, PLATELETS & AUT DIFF Comments: PATIENT NOT FASTINGPERFORMED BY: [facility]6370 [facility] [id number] ([id number]) Immature Grans (Abs) 0.0 {x10E3/uL} (Normal) Range: 0.0-0.1 Immature Granulocytes 0 % (Normal) Baso (Absolute) 0.0 {x10E3/uL} (Normal) Range: 0.0-0.2 Eos (Absolute) 0.2 {x10E3/uL} (Normal) Range: 0.0-0.4 Monocytes(Absolute) 0.7 {x10E3/uL} (Normal) Range: 0.1-0.9 Lymphs (Absolute) 2.2 {x10E3/uL} (Normal) Range: 0.7-3.1 Neutrophils (Absolute) 6.1 {x10E3/uL} (Normal) Range: 1.4-7.0 Basos 0 % (Normal) Eos 2 % (Normal) Monocytes 7 % (Normal) Lymphs 23 % (Normal) Neutrophils 68 % (Normal) Platelets 341 {x10E3/uL} (Normal) Range: 150-379 RDW 15.4 % (Normal) Range: 12.3-15.4 MCHC 32.4 g/dL (Normal) Range: 31.5-35.7 MCH 26.0 pg (Abnormal) Range: 26.6-33.0 MCV 80 fL (Normal) Range: 79-97 Hematocrit 35.5 % (Normal) Range: 34.0-46.6 Hemoglobin 11.5 g/dL (Normal) Range: 11.1-15.9 RBC 4.43 {x10E6/uL} (Normal) Range: 3.77-5.28 WBC 9.2 {x10E3/uL} (Normal) Range: 3.4-10.8 :36 HgA1C , Office (90917) HgA1C , Office 8.0 % (Abnormal) Range: 4.6 - 7.1 :36 Blood Glucose , Office ([id number]) Blood Glucose , Office 155 (Normal) :39 METABOLIC PANEL, COMPREHENSIVE Comments: PATIENT WAS FASTINGPERFORMED BY: [facility]Robert [facility] HospitalQsmhdl7074 [facility] [id number] ([id number]) ALT (SGPT) 6 [iU]/L (Normal) Range: 0-32 AST (SGOT) 13 [iU]/L (Normal) Range: 0-40 Alkaline Phosphatase, S 77 [iU]/L (Normal) Range: 39-117 Bilirubin, Total 0.3 mg/dL (Normal) Range: 0.0-1.2 A/G Ratio 1.7 (Normal) Range: 1.1-2.5 Globulin, Total 2.5 g/dL (Normal) Range: 1.5-4.5 Albumin, Serum 4.2 g/dL (Normal) Range: 3.5-4.8 Protein, Total, Serum 6.7 g/dL (Normal) Range: 6.0-8.5 Calcium, Serum 9.8 mg/dL (Normal) Range: 8.7-10.3 Carbon Dioxide, Total 25 mmol/L (Normal) Range: 18-29 Chloride, Serum 95 mmol/L (Abnormal) Range: 97-106 Comments: Effective January 22, 2016 the reference interval for Chloride, Serum will be changing to: 96 - 106 Potassium, Serum 4.1 mmol/L (Normal) Range: 3.5-5.2 Sodium, Serum 140 mmol/L (Normal) Range: 136-144 Comments: Effective January 22, 2016 the reference interval for Sodium, Serum will be changing to: 134 - 144 BUN/Creatinine Ratio 20 (Normal) Range: 11-26 eGFR If Africn Am 82 mL/min/1.73 (Normal) eGFR If NonAfricn Am 71 mL/min/1.73 (Normal) Creatinine, Serum 0.81 mg/dL (Normal) Range: 0.57-1.00 BUN 16 mg/dL (Normal) Range: 8-27 Glucose, Serum 200 mg/dL (Abnormal) Range: 65-99 [id number]:39 LIPID PANEL ([id number]) Comments: PATIENT WAS FASTINGPERFORMED BY: [facility]CoRobert [facility] HospitalQiwkwz9747 [facility] [id number] LDL/HDL Ratio 3.6 {ratio_units} (Abnormal) Range: 0.0-3.2 Comments: LDL/HDL Ratio Men Women 1/2 Avg.Risk 1.0 1.5 Av g.Risk 3.6 3.2 2X Avg.Risk 6.2 5.0 3X Avg.Risk 8.0 6.1 LDL Cholesterol Calc 104 mg/dL (Abnormal) Range: 0-99 VLDL Cholesterol Jyoti 72 mg/dL (Abnormal) Range: 5-40 HDL Cholesterol 29 mg/dL (Abnormal) Triglycerides 359 mg/dL (Abnormal) Range: 0-149 Cholesterol, Total 205 mg/dL (Abnormal) Range: 100-199 [id number]:49 Blood Glucose , Office ([id number]) Blood Glucose , Office 159 (Normal) [id number]:49 HgA1C , Office (18074) HgA1C , Office 8.1 % (Abnormal) Range: 4.6 - 7.1 :03 VITAMIN B-12 (CYANOCOBALAMIN) Comments: PATIENT WAS FASTINGPERFORMED BY: [facility] Arxcif9101 [facility] [place] [id number] ([id number]) Vitamin B12 319 pg/mL (Normal) Range: 211-946 02-Oxx-315560:03 LIPID PANEL (54360) Comments: PATIENT WAS FASTINGPERFORMED BY: [facility] Xswmkl5392 [facility] [place] [id number] VLDL Cholesterol Jyoti VLDLCH mg/dL (Normal) Range: 5-40 Comments: The calculation for the VLDL cholesterol is not valid whentriglyceride level is >400 mg/dL.Triglyceride result indicated is too high for an accurate LDLcholesterol estimation. HDL Cholesterol 26 mg/dL (Abnormal) Comments: According to ATP-III Guidelines, HDL-C >59 mg/dL is considered anegative risk factor for CHD. Triglycerides 515 mg/dL (Abnormal) Range: 0-149 Cholesterol, Total 192 mg/dL (Normal) Range: 100-199 97-Vhb-115395:03 Vitamin D Hydroxy (23083) Comments: PATIENT WAS FASTINGPERFORMED BY: [facility] Tffzlk9715 [facility] [place] [id number] Vitamin D, 25-Hydroxy 21.1 ng/mL (Abnormal) Range: 30.0-100.0 Comments: Vitamin D deficiency has been defined by the [place] of[place]icine and an Endocrine Society practice guideline as alevel of serum 25-OH vitamin D less than 20 ng/mL (1,2).The Endocrine Society went on to further define vitamin Dinsufficiency as a level between 21 and 29 ng/mL (2).1. IOM ([place] of Medicine). 2010. Dietary reference intakes for calcium and D. [place]: The National Academies Press.2. Bobo MF, Estrellita NC, Maddi CALIX, et al. Evaluation, treatment, and prevention of vitamin D deficiency: an Endocrine Society clinical practice guideline. JCEM. 2010; 96(7): 1911-30.; ADDENDA: non-emergent till apt next week 59-Bcc-513670:03 MICROALBUMIN: CREATININE RATIO Comments: PATIENT WAS FASTINGPERFORMED BY: [facility] Rrnmdy6132 [facility] [id number] ([id number]) AND (28688) Microalb/Creat Ratio 26.1 {mg/g_creat} (Normal) Range: 0.0-30.0 Microalbumin, Urine 20.0 ug/mL (Normal) Creatinine, Urine 76.5 mg/dL (Normal) :03 CBC W/AUTO DIFF WBC Comments: PATIENT WAS FASTINGPERFORMED BY: [facility]6370 [facility] [id number] Information: [id number] ([id number]) Immature Grans (Abs) 0.0 {x10E3/uL} (Normal) Range: 0.0-0.1 Immature Granulocytes 0 % (Normal) Baso (Absolute) 0.0 {x10E3/uL} (Normal) Range: 0.0-0.2 Eos (Absolute) 0.2 {x10E3/uL} (Normal) Range: 0.0-0.4 Monocytes(Absolute) 0.5 {x10E3/uL} (Normal) Range: 0.1-0.9 Lymphs (Absolute) 1.5 {x10E3/uL} (Normal) Range: 0.7-3.1 Neutrophils (Absolute) 5.8 {x10E3/uL} (Normal) Range: 1.4-7.0 Basos 0 % (Normal) Eos 3 % (Normal) Monocytes 7 % (Normal) Lymphs 18 % (Normal) Neutrophils 72 % (Normal) Platelets 247 {x10E3/uL} (Normal) Range: 150-379 RDW 14.7 % (Normal) Range: 12.3-15.4 MCHC 33.1 g/dL (Normal) Range: 31.5-35.7 MCH 26.4 pg (Abnormal) Range: 26.6-33.0 MCV 80 fL (Normal) Range: 79-97 Hematocrit 33.5 % (Abnormal) Range: 34.0-46.6 Hemoglobin 11.1 g/dL (Normal) Range: 11.1-15.9 RBC 4.21 {x10E6/uL} (Normal) Range: 3.77-5.28 WBC 8.1 {x10E3/uL} (Normal) Range: 3.4-10.8 :03 METABOLIC PANEL, COMPREHENSIVE Comments: PATIENT WAS FASTINGPERFORMED BY: [facility]CoRobert Wood Johnson University HospitalJxjiaj9701 [facility] [id number] ([id number]) ALT (SGPT) 7 [iU]/L (Normal) Range: 0-32 AST (SGOT) 23 [iU]/L (Normal) Range: 0-40 Alkaline Phosphatase, S 65 [iU]/L (Normal) Range: 39-117 Bilirubin, Total 0.2 mg/dL (Normal) Range: 0.0-1.2 A/G Ratio 1.6 (Normal) Range: 1.1-2.5 Globulin, Total 2.5 g/dL (Normal) Range: 1.5-4.5 Albumin, Serum 4.0 g/dL (Normal) Range: 3.5-4.8 Protein, Total, Serum 6.5 g/dL (Normal) Range: 6.0-8.5 Calcium, Serum 9.5 mg/dL (Normal) Range: 8.7-10.3 Carbon Dioxide, Total 23 mmol/L (Normal) Range: 18-29 Chloride, Serum 95 mmol/L (Abnormal) Range: 97-108 Potassium, Serum 4.6 mmol/L (Normal) Range: 3.5-5.2 Sodium, Serum 138 mmol/L (Normal) Range: 134-144 BUN/Creatinine Ratio 20 (Normal) Range: 11-26 eGFR If Africn Am 85 mL/min/1.73 (Normal) eGFR If NonAfricn Am 74 mL/min/1.73 (Normal) Creatinine, Serum 0.79 mg/dL (Normal) Range: 0.57-1.00 BUN 16 mg/dL (Normal) Range: 8-27 Glucose, Serum 166 mg/dL (Abnormal) Range: 65-99 :53 Vitamin D Hydroxy (10222) Comments: PATIENT WAS FASTINGPERFORMED BY: LabCoRobert Wood Johnson University HospitalRyhvbv8918 [facility] [id number] Vitamin D, 25-Hydroxy 25.5 ng/mL (Abnormal) Range: 30.0-100.0 Comments: Vitamin D deficiency has been defined by the [place] of[place]icine and an Endocrine Society practice guideline as alevel of serum 25-OH vitamin D less than 20 ng/mL (1,2).The Endocrine Society went on to further define vitamin Dinsufficiency as a level between 21 and 29 ng/mL (2).1. IOM ([place] of Medicine). 2010. Dietary reference intakes for calcium and D. [place]: The National Academies Press.2. Bobo MF, Estrellita STOCKTON, Maddi CALIX, et al. Evaluation, treatment, and prevention of vitamin D deficiency: an Endocrine Society clinical practice guideline. JCEM. 2010; 96(7):1911-30. :53 LIPID PANEL (87833) Comments: PATIENT WAS FASTINGPERFORMED BY: [facility]6370 [facility] [id number] LDL/HDL Ratio 3.7 {ratio_units} (Abnormal) Range: 0.0-3.2 Comments: LDL/HDL Ratio Men Women 1/2 Avg.Risk 1.0 1.5 Av g.Risk 3.6 3.2 2X Avg.Risk 6.2 5.0 3X Avg.Risk 8.0 6.1 LDL Cholesterol Calc 103 mg/dL (Abnormal) Range: 0-99 VLDL Cholesterol Jyoti 60 mg/dL (Abnormal) Range: 5-40 HDL Cholesterol 28 mg/dL (Abnormal) Triglycerides 298 mg/dL (Abnormal) Range: 0-149 Cholesterol, Total 191 mg/dL (Normal) Range: 100-199 :34 METABOLIC PANEL, COMPREHENSIVE Comments: PATIENT WAS FASTINGPERFORMED BY: [facility] Vqwlvu2728 [facility] [id number] ([id number]) ALT (SGPT) 5 [iU]/L (Normal) Range: 0-32 AST (SGOT) 8 [iU]/L (Normal) Range: 0-40 Alkaline Phosphatase, S 80 [iU]/L (Normal) Range: 39-117 Bilirubin, Total 0.3 mg/dL (Normal) Range: 0.0-1.2 A/G Ratio 2.0 (Normal) Range: 1.1-2.5 Comments: Effective April 22, 2016 the reference interval for A/G Ratio will be changing to: Age Male Female 0 - 7 d ays 1.1 - 2.3 1.1 - 2.3 8 - 30 days 1.2 - 2.8 1.2 - 2.8 1 - 6 months 1.3 - 3.6 1.3 - 3.6 7 months - 5 years 1.5 - 2.6 1.5 - 2.6 > 5 years 1.2 - 2.2 1.2 - 2.2 Globulin, Total 2.2 g/dL (Normal) Range: 1.5-4.5 Albumin, Serum 4.3 g/dL (Normal) Range: 3.5-4.8 Protein, Total, Serum 6.5 g/dL (Normal) Range: 6.0-8.5 Calcium, Serum 9.6 mg/dL (Normal) Range: 8.7-10.3 Carbon Dioxide, Total 26 mmol/L (Normal) Range: 18-29 Chloride, Serum 93 mmol/L (Abnormal) Range: 96-106 Potassium, Serum 4.3 mmol/L (Normal) Range: 3.5-5.2 Sodium, Serum 138 mmol/L (Normal) Range: 134-144 BUN/Creatinine Ratio 28 (Abnormal) Range: 11-26 eGFR If Africn Am 90 mL/min/1.73 (Normal) eGFR If NonAfricn Am 78 mL/min/1.73 (Normal) Creatinine, Serum 0.75 mg/dL (Normal) Range: 0.57-1.00 BUN 21 mg/dL (Normal) Range: 8-27 Glucose, Serum 214 mg/dL (Abnormal) Range: 65-99 17-Apr-20169:34 HGB A1C (55471) Comments: PATIENT WAS FASTINGPERFORMED BY: [facility]te70 [facility] [id number] Hemoglobin A1c 8.9 % (Abnormal) Range: 4.8-5.6 Comments: . Pre-diabetes: 5.7 - 6.4 Diabetes: >6.4 Glycemic control for adults with diabetes: <7.0 51-Jev-93412:11 VITAMIN B-12 (CYANOCOBALAMIN) Comments: B12lot:5200exp:06/26site:lt deltroute:IMdose:chilo Camargo; PATIENT WAS FASTINGPERFORMED BY: [facility]70 [facility] [id number] ([id number]) Vitamin B12 301 pg/mL (Normal) Range: 211-946 :11 Vitamin D Hydroxy (58937) Comments: PATIENT WAS FASTINGPERFORMED BY: [facility] Zxcgus3527 [facility] [id number] Vitamin D, 25-Hydroxy 20.3 ng/mL (Abnormal) Range: 30.0-100.0 Comments: Vitamin D deficiency has been defined by the [place] of[facility] and an Endocrine Society practice guideline as alevel of serum 25-OH vitamin D less than 20 ng/mL (1,2).The Endocrine Society went on to further define vitamin Dinsufficiency as a level between 21 and 29 ng/mL (2).1. IOM ([place] of [place]). 2010. Dietary reference intakes for calcium and D. [place]: The National Academies Press.2. Bobo MF, Estrellita STOCKTON, Maddi CALIX, et al. Evaluation, treatment, and prevention of vitamin D deficiency: an Endocrine Society clinical practice guideline. JCEM. 2010; 96(7):1911-30. :11 METABOLIC PANEL, Comments: PATIENT WAS FASTINGPERFORMED BY: [facility] Fyeirl0988 [facility] [id number] Information: [id number] COMPREHENSIVE ([id number]) ALT (SGPT) 6 [iU]/L (Normal) Range: 0-32 AST (SGOT) 14 [iU]/L (Normal) Range: 0-40 Alkaline Phosphatase, S 77 [iU]/L (Normal) Range: 39-117 Bilirubin, Total 0.4 mg/dL (Normal) Range: 0.0-1.2 A/G Ratio 1.7 (Normal) Range: 1.1-2.5 Globulin, Total 2.4 g/dL (Normal) Range: 1.5-4.5 Albumin, Serum 4.0 g/dL (Normal) Range: 3.5-4.8 Protein, Total, Serum 6.4 g/dL (Normal) Range: 6.0-8.5 Calcium, Serum 9.6 mg/dL (Normal) Range: 8.7-10.3 Carbon Dioxide, Total 24 mmol/L (Normal) Range: 18-29 Chloride, Serum 96 mmol/L (Abnormal) Range: 97-108 Potassium, Serum 4.3 mmol/L (Normal) Range: 3.5-5.2 Sodium, Serum 141 mmol/L (Normal) Range: 134-144 BUN/Creatinine Ratio 21 (Normal) Range: 11-26 eGFR If Africn Am 88 mL/min/1.73 (Normal) eGFR If NonAfricn Am 76 mL/min/1.73 (Normal) Creatinine, Serum 0.77 mg/dL (Normal) Range: 0.57-1.00 BUN 16 mg/dL (Normal) Range: 8-27 Glucose, Serum 191 mg/dL (Abnormal) Range: 65-99 :11 LIPID PANEL (86702) Comments: PATIENT WAS FASTINGPERFORMED BY: [facility] LLCAt[facility] [id number]; will review on 07/04 LDL/HDL Ratio 4.0 {ratio_units} (Abnormal) Range: 0.0-3.2 Comments: LDL/HDL Ratio Men Women 1/2 Avg.Risk 1.0 1.5 Av g.Risk 3.6 3.2 2X Avg.Risk 6.2 5.0 3X Avg.Risk 8.0 6.1 LDL Cholesterol Calc 120 mg/dL (Abnormal) Range: 0-99 VLDL Cholesterol Jyoti 75 mg/dL (Abnormal) Range: 5-40 HDL Cholesterol 30 mg/dL (Abnormal) Comments: According to ATP-III Guidelines, HDL-C >59 mg/dL is considered anegative risk factor for CHD. Triglycerides 377 mg/dL (Abnormal) Range: 0-149 Cholesterol, Total 225 mg/dL (Abnormal) Range: 100-199 :11 HGB A1C (05613) Comments: PATIENT WAS FASTINGPERFORMED BY: [facility] [id number] Hemoglobin A1c 8.5 % (Abnormal) Range: 4.8-5.6 Comments: . Pre-diabetes: 5.7 - 6.4 Diabetes: >6.4 Glycemic control for adults with diabetes: <7.0 :16 Vitamin D Hydroxy (14642) Comments: PATIENT WAS FASTINGPERFORMED BY: [facility] [id number] Vitamin D, 25-Hydroxy 21.3 ng/mL (Abnormal) Range: 30.0-100.0 Comments: Vitamin D deficiency has been defined by the [place] of[place]icine and an Endocrine Society practice guideline as alevel of serum 25-OH vitamin D less than 20 ng/mL (1,2).The Endocrine Society went on to further define vitamin Dinsufficiency as a level between 21 and 29 ng/mL (2).1. IOM ([place] of [employer]). 2010. Dietary reference intakes for calcium and D. [place]: The National AcademPinion.gg Press.2. Bobo MF, Estrellita STOCKTON, Maddi CALIX, et al. Evaluation, treatment, and prevention of vitamin D deficiency: an Endocrine Society clinical practice guideline. JCEM. 2010; 96(7):1911-30. :16 VITAMIN B-12 (CYANOCOBALAMIN) Comments: PATIENT WAS FASTINGPERFORMED BY: [facility]6370 [facility] [id number] (64914) Vitamin B12 283 pg/mL (Normal) Range: 211-946 :16 CBC W/AUTO DIFF WBC Comments: PATIENT WAS FASTINGPERFORMED BY: [facility] Gchxot4031 [facility] [id number] Information: [id number] ([id number]) Immature Grans (Abs) 0.0 {x10E3/uL} (Normal) Range: 0.0-0.1 Immature Granulocytes 0 % (Normal) Baso (Absolute) 0.0 {x10E3/uL} (Normal) Range: 0.0-0.2 Eos (Absolute) 0.2 {x10E3/uL} (Normal) Range: 0.0-0.4 Monocytes(Absolute) 0.7 {x10E3/uL} (Normal) Range: 0.1-0.9 Lymphs (Absolute) 1.8 {x10E3/uL} (Normal) Range: 0.7-3.1 Neutrophils (Absolute) 4.6 {x10E3/uL} (Normal) Range: 1.4-7.0 Basos 0 % (Normal) Eos 2 % (Normal) Monocytes 10 % (Normal) Lymphs 25 % (Normal) Neutrophils 63 % (Normal) Platelets 241 {x10E3/uL} (Normal) Range: 150-379 RDW 15.3 % (Normal) Range: 12.3-15.4 MCHC 31.7 g/dL (Normal) Range: 31.5-35.7 MCH 25.7 pg (Abnormal) Range: 26.6-33.0 MCV 81 fL (Normal) Range: 79-97 Hematocrit 36.3 % (Normal) Range: 34.0-46.6 Hemoglobin 11.5 g/dL (Normal) Range: 11.1-15.9 RBC 4.47 {x10E6/uL} (Normal) Range: 3.77-5.28 WBC 7.4 {x10E3/uL} (Normal) Range: 3.4-10.8 :16 LIPID PANEL (26417) Comments: PATIENT WAS FASTINGPERFORMED BY: [facility] [id number] VLDL Cholesterol Jyoti VLDLCH mg/dL (Normal) Range: 5-40 Comments: The calculation for the VLDL cholesterol is not valid whentriglyceride level is >400 mg/dL.Triglyceride result indicated is too high for an accurate LDLcholesterol estimation. HDL Cholesterol 28 mg/dL (Abnormal) Comments: According to ATP-III Guidelines, HDL-C >59 mg/dL is considered anegative risk factor for CHD. Triglycerides 511 mg/dL (Abnormal) Range: 0-149 Cholesterol, Total 168 mg/dL (Normal) Range: 100-199 10-Dmh-282369:49 HGB A1C (72784) Comments: PATIENT NOT FASTINGPERFORMED BY: Genalyte70 [facility]erAt[facility] [id number] Information: [id number], [id number] Hemoglobin A1c 8.1 % (Abnormal) Range: 4.8-5.6 Comments: . Pre-diabetes: 5.7 - 6.4 Diabetes: >6.4 Glycemic control for adults with diabetes: <7.0 :30 VITAMIN B-12 (CYANOCOBALAMIN) Comments: PATIENT WAS FASTINGPERFORMED BY: [facility] [id number] ([id number]) Vitamin B12 325 pg/mL (Normal) Range: 211-946 :30 CBC (AUTO) (50188) Comments: PATIENT WAS FASTINGPERFORMED BY: [facility]6370 [facility] [id number] Platelets 309 {x10E3/uL} (Normal) Range: 150-379 RDW 14.8 % (Normal) Range: 12.3-15.4 MCHC 31.1 g/dL (Abnormal) Range: 31.5-35.7 MCH 25.6 pg (Abnormal) Range: 26.6-33.0 MCV 82 fL (Normal) Range: 79-97 Hematocrit 39.2 % (Normal) Range: 34.0-46.6 Hemoglobin 12.2 g/dL (Normal) Range: 11.1-15.9 RBC 4.77 {x10E6/uL} (Normal) Range: 3.77-5.28 WBC 10.9 {x10E3/uL} (Abnormal) Range: 3.4-10.8 :30 Vitamin D Hydroxy (48035) Comments: PATIENT WAS FASTINGPERFORMED BY: [facility]6370 [facility] [id number] Vitamin D, 25-Hydroxy 19.9 ng/mL (Abnormal) Range: 30.0-100.0 Comments: Vitamin D deficiency has been defined by the [place] of[place]icine and an Endocrine Society practice guideline as alevel of serum 25-OH vitamin D less than 20 ng/mL (1,2).The Endocrine Society went on to further define vitamin Dinsufficiency as a level between 21 and 29 ng/mL (2).1. IOM ([place] of [place]). 2010. Dietary reference intakes for calcium and D. [place]: The National Academies Press.2. Bobo MF, Estrellita NC, Maddi CALIX, et al. Evaluation, treatment, and prevention of vitamin D deficiency: an Endocrine Society clinical practice guideline. JCEM. 2010; 96(7): 1911-30.; ADDENDA: non-emergent till tomorrows apt :30 LIPID PANEL (28808) Comments: PATIENT WAS FASTINGPERFORMED BY: [facility]6370 [facility] [id number] VLDL Cholesterol Jyoti VLDLCH mg/dL (Normal) Range: 5-40 Comments: The calculation for the VLDL cholesterol is not valid whentriglyceride level is >400 mg/dL.Triglyceride result indicated is too high for an accurate LDLcholesterol estimation. HDL Cholesterol 31 mg/dL (Abnormal) Comments: According to ATP-III Guidelines, HDL-C >59 mg/dL is considered anegative risk factor for CHD. Triglycerides 416 mg/dL (Abnormal) Range: 0-149 Cholesterol, Total 169 mg/dL (Normal) Range: 100-199 :30 MICROALBUMIN: CREATININE RATIO Comments: PATIENT WAS FASTINGPERFORMED BY: Genalyte70 [facility] [id number] ([id number]) AND (16726) Microalb/Creat Ratio 190.8 {mg/g_creat} (Abnormal) Range: 0.0-30.0 Microalbumin, Urine 66.6 ug/mL (Abnormal) Range: 0.0-17.0 Creatinine, Urine 34.9 mg/dL (Normal) Range: 15.0-278.0 :30 METABOLIC PANEL, Comments: PATIENT WAS FASTINGPERFORMED BY: [employer] Sajyln4761 [facility] [id number] Information: [id number] COMPREHENSIVE (82956) ALT (SGPT) 6 [iU]/L (Normal) Range: 0-32 AST (SGOT) 12 [iU]/L (Normal) Range: 0-40 Alkaline Phosphatase, S 74 [iU]/L (Normal) Range: 39-117 Bilirubin, Total 0.4 mg/dL (Normal) Range: 0.0-1.2 A/G Ratio 1.7 (Normal) Range: 1.1-2.5 Globulin, Total 2.4 g/dL (Normal) Range: 1.5-4.5 Albumin, Serum 4.1 g/dL (Normal) Range: 3.5-4.8 Protein, Total, Serum 6.5 g/dL (Normal) Range: 6.0-8.5 Calcium, Serum 9.6 mg/dL (Normal) Range: 8.7-10.3 Carbon Dioxide, Total 25 mmol/L (Normal) Range: 18-29 Chloride, Serum 96 mmol/L (Abnormal) Range: 97-108 Potassium, Serum 4.0 mmol/L (Normal) Range: 3.5-5.2 Sodium, Serum 139 mmol/L (Normal) Range: 134-144 BUN/Creatinine Ratio 13 (Normal) Range: 11-26 eGFR If Africn Am 80 mL/min/1.73 (Normal) eGFR If NonAfricn Am 70 mL/min/1.73 (Normal) Creatinine, Serum 0.83 mg/dL (Normal) Range: 0.57-1.00 BUN 11 mg/dL (Normal) Range: 8-27 Glucose, Serum 234 mg/dL (Abnormal) Range: 65-99 :59 Vitamin D Hydroxy (53847) Comments: PATIENT NOT FASTINGPERFORMED BY: [facility] [id number]; apt. 10-21-14 Vitamin D, 25-Hydroxy 21.4 ng/mL (Abnormal) Range: 30.0-100.0 Comments: Vitamin D deficiency has been defined by the [place] of[place]icine and an Endocrine Society practice guideline as alevel of serum 25-OH vitamin D less than 20 ng/mL (1,2).The Endocrine Society went on to further define vitamin Dinsufficiency as a level between 21 and 29 ng/mL (2).1. IOM ([place] of [place]). 2010. Dietary reference intakes for calcium and D. [place]: The National Academies Press.2. Bobo MF, Estrellita NC, Maddi CALIX, et al. Evaluation, treatment, and prevention of vitamin D deficiency: an Endocrine Society clinical practice guideline. JCEM. 2010; 96(7):1911-30. :59 LIPID PANEL (30942) Comments: PATIENT NOT FASTINGPERFORMED BY: LATTOrp Mrkfne8780 [facility] [id number] VLDL Cholesterol Jyoti VLDLCH mg/dL (Normal) Range: 5-40 Comments: The calculation for the VLDL cholesterol is not valid whentriglyceride level is >400 mg/dL.Triglyceride result indicated is too high for an accurate LDLcholesterol estimation. HDL Cholesterol 31 mg/dL (Abnormal) Comments: According to ATP-III Guidelines, HDL-C >59 mg/dL is considered anegative risk factor for CHD. Triglycerides 440 mg/dL (Abnormal) Range: 0-149 Cholesterol, Total 177 mg/dL (Normal) Range: 100-199 :59 VITAMIN B-12 (CYANOCOBALAMIN) Comments: PATIENT NOT FASTINGPERFORMED BY: [facility] Gjmpxi7581 [facility] [id number] (55923) Vitamin B12 500 pg/mL (Normal) Range: 211-946 :59 CBC W/AUTO DIFF WBC Comments: PATIENT NOT FASTINGPERFORMED BY: [facility] Qhewrg6197 [facility] [id number] Information: [id number] (18753) Immature Grans (Abs) 0.0 {x10E3/uL} (Normal) Range: 0.0-0.1 Immature Granulocytes 0 % (Normal) Baso (Absolute) 0.0 {x10E3/uL} (Normal) Range: 0.0-0.2 Eos (Absolute) 0.2 {x10E3/uL} (Normal) Range: 0.0-0.4 Monocytes(Absolute) 0.7 {x10E3/uL} (Normal) Range: 0.1-0.9 Lymphs (Absolute) 1.8 {x10E3/uL} (Normal) Range: 0.7-3.1 Neutrophils (Absolute) 5.7 {x10E3/uL} (Normal) Range: 1.4-7.0 Basos 0 % (Normal) Eos 2 % (Normal) Monocytes 8 % (Normal) Lymphs 21 % (Normal) Neutrophils 69 % (Normal) Platelets 244 {x10E3/uL} (Normal) Range: 150-379 RDW 14.7 % (Normal) Range: 12.3-15.4 MCHC 30.7 g/dL (Abnormal) Range: 31.5-35.7 MCH 25.4 pg (Abnormal) Range: 26.6-33.0 MCV 83 fL (Normal) Range: 79-97 Hematocrit 38.1 % (Normal) Range: 34.0-46.6 Hemoglobin 11.7 g/dL (Normal) Range: 11.1-15.9 RBC 4.60 {x10E6/uL} (Normal) Range: 3.77-5.28 WBC 8.3 {x10E3/uL} (Normal) Range: 3.4-10.8 :59 METABOLIC PANEL, COMPREHENSIVE Comments: PATIENT NOT FASTINGPERFORMED BY: LabCoRobert Wood Johnson University HospitalOilxwu9966 [facility] [id number] ([id number]) ALT (SGPT) 6 [iU]/L (Normal) Range: 0-32 AST (SGOT) 14 [iU]/L (Normal) Range: 0-40 Alkaline Phosphatase, S 75 [iU]/L (Normal) Range: 39-117 Bilirubin, Total 0.3 mg/dL (Normal) Range: 0.0-1.2 A/G Ratio 2.0 (Normal) Range: 1.1-2.5 Globulin, Total 2.1 g/dL (Normal) Range: 1.5-4.5 Albumin, Serum 4.2 g/dL (Normal) Range: 3.5-4.8 Protein, Total, Serum 6.3 g/dL (Normal) Range: 6.0-8.5 Calcium, Serum 9.9 mg/dL (Normal) Range: 8.7-10.3 Carbon Dioxide, Total 26 mmol/L (Normal) Range: 18-29 Chloride, Serum 96 mmol/L (Abnormal) Range: 97-108 Potassium, Serum 4.1 mmol/L (Normal) Range: 3.5-5.2 Sodium, Serum 139 mmol/L (Normal) Range: 134-144 BUN/Creatinine Ratio 13 (Normal) Range: 11-26 eGFR If Africn Am 82 mL/min/1.73 (Normal) eGFR If NonAfricn Am 71 mL/min/1.73 (Normal) Creatinine, Serum 0.82 mg/dL (Normal) Range: 0.57-1.00 BUN 11 mg/dL (Normal) Range: 8-27 Glucose, Serum 231 mg/dL (Abnormal) Range: 65-99 :38 Blood Glucose , Office (69459) Blood Glucose , Office 198 (Normal) :38 HgA1C , Office (69358) HgA1C , Office 9.1 % (Abnormal) Range: 4.6 - 7.1 :40 Allergens, Zone 8 Comments: Test(s) [id number] Cockroach, [place]an; [id number] Evangeline, White; [id number] Sweet Gumwere developed and had performance characteristicsdetermined by [facility]. These tests have not been c leared orapproved by the U.S. Food and Drug Administration. The FDAhas determined that such clearance or approval is notnecessary. These tests are used for clinical purposes.These should not be regarded as investigational or forresearch.Test performed at:[facility] Akkyqaogyr[address] [place], [place] [address] ; handled by jennifer VANG COMMENT Comment (Normal) Comments: Levels of Specific IgE Class Description of Class ----- < 0.10 0 Negative 0.10 - 0.31 0/I Equivocal/Low 0.32 - 0.55 I Low 0.56 - 1.40 II Moderate 1.41 - 3.90 III High 3.91 - 19.00 IV Very High 19.01 - 100.00 V Very High >100.00 Very High COCKROACH,AMER <0.10 kU/L (Normal) NETTLE <0.10 kU/L (Normal) Comments: Performed at: [address] [id number] Director: Loco Ivey MD, Phone: [phone] SHEEP SORREL <0.10 kU/L (Normal) PIGWEED, ROUGH <0.10 kU/L (Normal) PLANTAIN,ENGLSH 0.10 kU/L (Abnormal) MUGWORT <0.10 kU/L (Normal) RAGWEED SH/COM 0.10 kU/L (Abnormal) CEDAR, MOUNTAIN <0.10 kU/L (Normal) SWEET GUM <0.10 kU/L (Normal) MULBERRY, WHITE <0.10 kU/L (Normal) SYCAMORE, AMER 0.12 kU/L (Abnormal) HICKORY, WHITE <0.10 kU/L (Normal) HAZELNUT TREE <0.10 kU/L (Normal) MAPLE/BOX ELDER <0.10 kU/L (Normal) ELM,AMER WHITE <0.10 kU/L (Normal) OAK, WHITE <0.10 kU/L (Normal) STEMPHYLIUM HER <0.10 kU/L (Normal) A. ALTERNATA <0.10 kU/L (Normal) MUCOR RACEMOSUS <0.10 kU/L (Normal) ASPERGILLUS FUM <0.10 kU/L (Normal) CLADOSPOR HERB <0.10 kU/L (Normal) PEN CHRYSOGEN <0.10 kU/L (Normal) BAHIA GRASS <0.10 kU/L (Normal) CESAR GRASS <0.10 kU/L (Normal) BL[place], [place] <0.10 kU/L (Normal) BERMUDA GRASS <0.10 kU/L (Normal) DOG EPITHELIA <0.10 kU/L (Normal) CAT HAIR/DANDER <0.10 kU/L (Normal) D FARINAE MITE <0.10 kU/L (Normal) D PTERONYSSINUS <0.10 kU/L (Normal) 92-Rnx-82986:40 Immunoglobulin E Comments: Test performed at:[facility] [address] [place] [address] IMMUNO E 53 {IU/mL} (Normal) Range: 0-100 Comments: Performed at: - [address] [id number] Director: Christopher Sullivan PhD, Phone: [phone]; ADDENDA: handled by jennifer [id number]-Kvi-[id number]:26 HgA1C , Office (43783) HgA1C , Office 9.6 % (Abnormal) Range: 4.6 - 7.1 7-Vie-121772:31 BNP,B-Type NATRIURETIC PEPTIDE Comments: Test performed at:[facility] [address] [place] [address] B-TYPE ANDREW PEP 58.8 pg/mL (Normal) Range: 0-100 08-Onf-612316:04 IRON BINDING CAPACITY (TIBC) Comments: PERFORMED BY: [facility] [address]Dublin [place] [id number] ([id number]) Iron Saturation 11 % (Abnormal) Range: 15-55 Iron, Serum 47 ug/dL (Normal) Range: 35-155 UIBC 362 ug/dL (Normal) Range: 150-375 Iron Bind.Cap.(TIBC) 409 ug/dL (Normal) Range: 250-450 03-Ron-724279:04 FERRITIN (25744) Comments: PERFORMED BY: [facility] [id number] [place] [id number] Ferritin, Serum 32 ng/mL (Normal) Range: 15-150 54-Sqb-744710:04 VITAMIN B-12 (CYANOCOBALAMIN) Comments: PERFORMED BY: [id number] [facility] [place] [id number] ([id number]) Vitamin B12 304 pg/mL (Normal) Range: 211-946 69-Tvz-967856:04 Vitamin D Hydroxy (50314) Comments: PERFORMED BY: [facility] Ntfyds7[address] RoadDublin [place] [id number] Vitamin D, 25-Hydroxy 17.5 ng/mL (Abnormal) Range: 30.0-100.0 Comments: Vitamin D deficiency has been defined by the [place] of[place]icine and an Endocrine Society practice guideline as alevel of serum 25-OH vitamin D less than 20 ng/mL (1,2).The Endocrine Society went on to further define vitamin Dinsufficiency as a level between 21 and 29 ng/mL (2).1. IOM ([place] of Medicine). 2010. Dietary reference intakes for calcium and D. [place]: The National Academies Press.2. Bobo MF, Estrellita NC, Maddi CALIX, et al. Evaluation, treatment, and prevention of vitamin D deficiency: an Endocrine Society clinical practice guideline. JCEM. 2010; 96(7):1911-30. 78-Aok-[id number]:04 LIPID PANEL (08608) Comments: PERFORMED BY: [facility] Paoqjo4[address] RoadDublin [place] [id number] VLDL Cholesterol Jyoti VLDLCH mg/dL (Normal) Range: 5-40 Comments: The calculation for the VLDL cholesterol is not valid whentriglyceride level is >400 mg/dL.Triglyceride result indicated is too high for an accurate LDLcholesterol estimation. HDL Cholesterol 27 mg/dL (Abnormal) Comments: According to ATP-III Guidelines, HDL-C >59 mg/dL is considered anegative risk factor for CHD. Triglycerides 458 mg/dL (Abnormal) Range: 0-149 Cholesterol, Total 166 mg/dL (Normal) Range: 100-199 68-Dbw-614227:04 CBC W/AUTO DIFF WBC (62361) Comments: PERFORMED BY: [facility]CoRobert [facility] Johnson University HospitalOawpne7361 [facility] [id number] Immature Grans (Abs) 0.0 {x10E3/uL} (Normal) Range: 0.0-0.1 Immature Granulocytes 0 % (Normal) Baso (Absolute) 0.0 {x10E3/uL} (Normal) Range: 0.0-0.2 Eos (Absolute) 0.1 {x10E3/uL} (Normal) Range: 0.0-0.4 Monocytes(Absolute) 0.5 {x10E3/uL} (Normal) Range: 0.1-0.9 Lymphs (Absolute) 1.4 {x10E3/uL} (Normal) Range: 0.7-3.1 Neutrophils (Absolute) 5.2 {x10E3/uL} (Normal) Range: 1.4-7.0 Basos 0 % (Normal) Eos 2 % (Normal) Monocytes 7 % (Normal) Lymphs 19 % (Normal) Neutrophils 72 % (Normal) Platelets 283 {x10E3/uL} (Normal) Range: 150-379 RDW 15.0 % (Normal) Range: 12.3-15.4 MCHC 30.7 g/dL (Abnormal) Range: 31.5-35.7 MCH 25.8 pg (Abnormal) Range: 26.6-33.0 MCV 84 fL (Normal) Range: 79-97 Hematocrit 36.1 % (Normal) Range: 34.0-46.6 Hemoglobin 11.1 g/dL (Normal) Range: 11.1-15.9 RBC 4.31 {x10E6/uL} (Normal) Range: 3.77-5.28 WBC 7.3 {x10E3/uL} (Normal) Range: 3.4-10.8 23-Vfd-231592:04 METABOLIC PANEL, COMPREHENSIVE Comments: PERFORMED BY: BELKYS [facility] [id number] (60845) ALT (SGPT) 5 [iU]/L (Normal) Range: 0-32 AST (SGOT) 10 [iU]/L (Normal) Range: 0-40 Alkaline Phosphatase, S 55 [iU]/L (Normal) Range: 39-117 Bilirubin, Total 0.3 mg/dL (Normal) Range: 0.0-1.2 A/G Ratio 1.9 (Normal) Range: 1.1-2.5 Globulin, Total 2.2 g/dL (Normal) Range: 1.5-4.5 Albumin, Serum 4.2 g/dL (Normal) Range: 3.5-4.8 Protein, Total, Serum 6.4 g/dL (Normal) Range: 6.0-8.5 Calcium, Serum 9.6 mg/dL (Normal) Range: 8.7-10.3 Carbon Dioxide, Total 25 mmol/L (Normal) Range: 18-29 Chloride, Serum 93 mmol/L (Abnormal) Range: 97-108 Potassium, Serum 3.9 mmol/L (Normal) Range: 3.5-5.2 Sodium, Serum 137 mmol/L (Normal) Range: 134-144 BUN/Creatinine Ratio 20 (Normal) Range: 11-26 eGFR If Africn Am 78 mL/min/1.73 (Normal) eGFR If NonAfricn Am 67 mL/min/1.73 (Normal) Creatinine, Serum 0.86 mg/dL (Normal) Range: 0.57-1.00 BUN 17 mg/dL (Normal) Range: 8-27 Glucose, Serum 279 mg/dL (Abnormal) Range: 65-99 58-Rjj-423223:18 HgA1C , Office (31196) HgA1C , Office 8.3 % (Abnormal) Range: 4.6 - 7.1 48-Rmg-415938:12 Rapid Flu (63724 x 2) Influenza A Ag negative (Normal) 93-Pdw-607526:43 BNTP (35360) Comments: PATIENT NOT FASTINGPERFORMED BY: BELKYS [facility]op [facility] HospitalDublin [place] [id number] Information: [id number] B-Type Natriuretic Peptide 67.8 pg/mL (Normal) Range: 0.0-100.0 :12 CBCD ALC 1.70 {X10_3/ul} (Normal) Range: 0.83-4.51 ANC 5.9 {X10_3/uL} (Normal) Range: 2.0-7.7 IG% 0.400 % (Normal) Range: 0.0-0.9 Comments: IG% - Immature Granulocytes (promyelocytes, myelocytes andmetamyelocytes) > 1% indicates that a LEFT SHIFT is Present. B% 0.4 % (Normal) Range: 0-1 E% 2.0 % (Normal) Range: 0-5 M% 8.4 % (Normal) Range: 0-10 L% 19.9 % (Normal) Range: 19-41 N% 68.9 % (Normal) Range: 47-70 MPV 10.0 fL (Normal) Range: 6.2-12.0 PLT 255 K/mm3 (Normal) Range: 150-450 RDWSD 44.8 fL (Abnormal) Range: 35.1-43.9 RDWCV 14.3 % (Normal) Range: 11.6-14.6 MCHC 31.1 {g/gl} (Abnormal) Range: 32-36 MCH 26.8 pg (Abnormal) Range: 27.0-32.0 MCV 86.3 fL (Normal) Range: 81-99 HCT 38.3 % (Normal) Range: 37-47 HGB 11.9 g/dL (Abnormal) Range: 12.0-15.0 RBC 4.44 {M/mm3} (Normal) Range: 4.2-5.4 WBC 8.6 K/mm3 (Normal) Range: 4.4-11.0 :12 RENAL CO2 31.0 mmol/L (Normal) Range: 21.0-32.0 CL 100 mmol/L (Normal) Range: 98-107 K 4.1 mmol/L (Normal) Range: 3.5-5.1 NA 136 mmol/L (Normal) Range: 136-145 PHOS 3.3 mg/dL (Normal) Range: 2.5-4.9 CA 9.8 mg/dL (Normal) Range: 8.5-10.1 ALB 3.9 g/dL (Normal) Range: 3.4-5.0 BC 13.3 {RATIO} (Normal) Range: 10-20 CREAT 0.9 mg/dL (Normal) Range: 0.6-1.0 BUN 12 mg/dL (Normal) Range: 7-18 GLU 135 mg/dL (Abnormal) Range: 70-110 Comments: Fasting Glucose result greater than or equal to 126 mg/dLsuggests DIABETES MELLITUS per A.D.A. criteria. 86-Vjt-707941:14 Blood Glucose , Office (89636) Blood Glucose , Office 112 (Normal) :14 HgA1C , Office (39866) HgA1C , Office 7.3 % (Abnormal) Range: 4.6 - 7.1 02-Urp-102911:45 WESTON Negative (Normal) Comments: Performed at: [facility] [address] [id number] Director: Nick Cali PhD, Phone: [phone] 52-Tkb-087711:45 CBCD ALC 1.65 {X10_3/ul} (Normal) Range: 0.83-4.51 ANC 5.0 {X10_3/uL} (Normal) Range: 2.0-7.7 IG% 0.400 % (Normal) Range: 0.0-0.9 Comments: IG% - Immature Granulocytes (promyelocytes, myelocytes andmetamyelocytes) > 1% indicates that a LEFT SHIFT is Present. B% 0.3 % (Normal) Range: 0-1 E% 2.1 % (Normal) Range: 0-5 M% 8.5 % (Normal) Range: 0-10 L% 22.1 % (Normal) Range: 19-41 N% 66.6 % (Normal) Range: 47-70 MPV 10.1 fL (Normal) Range: 6.2-12.0 PLT 262 K/mm3 (Normal) Range: 150-450 RDWSD 45.0 fL (Abnormal) Range: 35.1-43.9 RDWCV 14.2 % (Normal) Range: 11.6-14.6 MCHC 30.9 {g/gl} (Abnormal) Range: 32-36 MCH 26.9 pg (Abnormal) Range: 27.0-32.0 MCV 86.8 fL (Normal) Range: 81-99 HCT 37.5 % (Normal) Range: 37-47 HGB 11.6 g/dL (Abnormal) Range: 12.0-15.0 RBC 4.32 {M/mm3} (Normal) Range: 4.2-5.4 WBC 7.5 K/mm3 (Normal) Range: 4.4-11.0 :45 CCP 2 {units} (Normal) Range: 0-19 Comments: Negative <20Weak positive 20 - 39Moderate positive 40 - 59Strong positive >59Performed at: - [facility] [address] [id number] Director: Loco Ivey MD, Phone: [phone] 62-Orr-592851:45 CMP GAP 4 (Abnormal) Range: 5-15 CO2 31.0 mmol/L (Normal) Range: 21.0-32.0 CL 103 mmol/L (Normal) Range: 98-107 K 4.3 mmol/L (Normal) Range: 3.5-5.1 NA 138 mmol/L (Normal) Range: 136-145 BIT 0.30 mg/dL (Normal) Range: 0.00-1.00 ALT 14 U/L (Normal) Range: 12-78 ALK 52 U/L (Normal) Range: 45-117 AST 14 U/L (Abnormal) Range: 15-37 CA 9.5 mg/dL (Normal) Range: 8.5-10.1 AG 1.1 {RATIO} (Normal) Range: 0.9-2.4 GLOB 3.4 g/dL (Normal) Range: 2.7-4.2 ALB 3.8 g/dL (Normal) Range: 3.4-5.0 TPROT 7.2 g/dL (Normal) Range: 6.4-8.2 BC 13.3 {RATIO} (Normal) Range: 10-20 CREAT 0.9 mg/dL (Normal) Range: 0.6-1.0 BUN 12 mg/dL (Normal) Range: 7-18 GLU 99 mg/dL (Normal) Range: 70-110 :45 CRP < 2.90 mg/L (Normal) Range: 0.0-3.0 Comments: C-Reactive Protein (CRP) provides useful information for thediagnosis, therapy and monitoring of inflammatory processesand associated diseases. For the evaluation of Relative Riskfor Cardiovascular Dise ase, a High Sensitivity CRP (HSCRP)should be ordered. :45 RF < 10.0 {IU/mL} (Normal) :45 SED tSEDRATE 12 mm/h (Normal) Range: 0-30 :45 VITD 30.7 mg/mL (Normal) Comments: Vitamin D 25(OH) Status RangeDeficiency <20 ng/mL (50nmol/L)Insuffciency 20 - 30 ng/mL (50 - 75 nmol/L)Sufficiency 30 - 100 ng/mL (75 - 250 nmol/L)Toxicity >100 ng/mL (>250 nmol/L) :46 Vitamin D Hydroxy (27600) Comments: PATIENT WAS FASTINGPERFORMED BY: [facility] [place] [id number] Vitamin D, 25-Hydroxy 22.7 ng/mL (Abnormal) Range: 30.0-100.0 Comments: Vitamin D deficiency has been defined by the [place] of[place]icine and an Endocrine Society practice guideline as alevel of serum 25-OH vitamin D less than 20 ng/mL (1,2).The Endocrine Society went on to further define vitamin Dinsufficiency as a level between 21 and 29 ng/mL (2).1. IOM ([place] of Medicine). 2010. Dietary reference intakes for calcium and D. [place]: The National Academies Press.2. Bobo MF, Estrellita NC, Maddi CALIX, et al. Evaluation, treatment, and prevention of vitamin D deficiency: an Endocrine Society clinical practice guideline. JCEM. 2010; 96(7):1911-30. :46 MICROALBUMIN: CREATININE RATIO Comments: PATIENT WAS FASTINGPERFORMED BY: [facility] [place] [id number] (06336) AND (95876) Microalb/Creat Ratio 37.1 {mg/g_creat} (Abnormal) Range: 0.0-30.0 Microalbumin, Urine 29.9 ug/mL (Abnormal) Range: 0.0-17.0 Creatinine, Urine 80.5 mg/dL (Normal) Range: 15.0-278.0 :46 METABOLIC PANEL, COMPREHENSIVE Comments: PATIENT WAS FASTINGPERFORMED BY: [facility]70 [facility] [id number] (26137) ALT (SGPT) 7 [iU]/L (Normal) Range: 0-32 AST (SGOT) 15 [iU]/L (Normal) Range: 0-40 Alkaline Phosphatase, S 59 [iU]/L (Normal) Range: 39-117 Bilirubin, Total 0.2 mg/dL (Normal) Range: 0.0-1.2 A/G Ratio 2.1 (Normal) Range: 1.1-2.5 Globulin, Total 2.0 g/dL (Normal) Range: 1.5-4.5 Albumin, Serum 4.1 g/dL (Normal) Range: 3.5-4.8 Protein, Total, Serum 6.1 g/dL (Normal) Range: 6.0-8.5 Calcium, Serum 9.8 mg/dL (Normal) Range: 8.6-10.2 Carbon Dioxide, Total 24 mmol/L (Normal) Range: 18-29 Chloride, Serum 98 mmol/L (Normal) Range: 97-108 Potassium, Serum 4.4 mmol/L (Normal) Range: 3.5-5.2 Sodium, Serum 139 mmol/L (Normal) Range: 134-144 BUN/Creatinine Ratio 19 (Normal) Range: 11-26 eGFR If Africn Am 102 mL/min/1.73 (Normal) eGFR If NonAfricn Am 88 mL/min/1.73 (Normal) Creatinine, Serum 0.67 mg/dL (Normal) Range: 0.57-1.00 BUN 13 mg/dL (Normal) Range: 8-27 Glucose, Serum 141 mg/dL (Abnormal) Range: 65-99 :46 LIPID PANEL (38508) Comments: PATIENT WAS FASTINGPERFORMED BY: [facility]70 [facility] [id number] LDL/HDL Ratio 2.1 {ratio_units} (Normal) Range: 0.0-3.2 Comments: LDL/HDL Ratio Men Women 1/2 Avg.Risk 1.0 1.5 Av g.Risk 3.6 3.2 2X Avg.Risk 6.2 5.0 3X Avg.Risk 8.0 6.1 LDL Cholesterol Calc 79 mg/dL (Normal) Range: 0-99 VLDL Cholesterol Jyoti 61 mg/dL (Abnormal) Range: 5-40 HDL Cholesterol 37 mg/dL (Abnormal) Comments: According to ATP-III Guidelines, HDL-C >59 mg/dL is considered anegative risk factor for CHD. Triglycerides 307 mg/dL (Abnormal) Range: 0-149 Cholesterol, Total 177 mg/dL (Normal) Range: 100-199 15-Trk-51689:46 CBC, PLATELETS & AUT DIFF Comments: PATIENT WAS FASTINGPERFORMED BY: [facility] Fsqofj2429 [facility] [id number] Information: [id number] (76530) Hematology Comments: Note: (Normal) Comments: Verified by microscopic examination. Immature Grans (Abs) 0.0 {x10E3/uL} (Normal) Range: 0.0-0.1 Immature Granulocytes 0 % (Normal) Baso (Absolute) 0.1 {x10E3/uL} (Normal) Range: 0.0-0.2 Eos (Absolute) 0.3 {x10E3/uL} (Normal) Range: 0.0-0.4 Monocytes(Absolute) 1.0 {x10E3/uL} (Abnormal) Range: 0.1-0.9 Lymphs (Absolute) 2.2 {x10E3/uL} (Normal) Range: 0.7-3.1 Neutrophils (Absolute) 7.2 {x10E3/uL} (Abnormal) Range: 1.4-7.0 Basos 1 % (Normal) Eos 3 % (Normal) Monocytes 9 % (Normal) Lymphs 20 % (Normal) Neutrophils 67 % (Normal) Platelets 252 {x10E3/uL} (Normal) Range: 150-379 RDW 14.6 % (Normal) Range: 12.3-15.4 MCHC 32.4 g/dL (Normal) Range: 31.5-35.7 MCH 27.0 pg (Normal) Range: 26.6-33.0 MCV 83 fL (Normal) Range: 79-97 Hematocrit 36.1 % (Normal) Range: 34.0-46.6 Hemoglobin 11.7 g/dL (Normal) Range: 11.1-15.9 RBC 4.34 {x10E6/uL} (Normal) Range: 3.77-5.28 WBC 10.8 {x10E3/uL} (Normal) Range: 3.4-10.8 :46 VITAMIN B-12 (CYANOCOBALAMIN) Comments: PATIENT WAS FASTINGPERFORMED BY: [facility], LLCAt[facility] [id number] (04846) Vitamin B12 254 pg/mL (Normal) Range: 211-946 5-Cgc-621469:10 HgA1C , Office (02210) HgA1C , Office 6.8 % (Normal) Range: 4.6 - 7.1 1-Oqv-361034:10 Blood Glucose , Office (06830) Blood Glucose , Office 146 (Normal) Comments: non-fasting :36 LIPID PANEL (87520) Comments: PATIENT WAS FASTINGPERFORMED BY: LATTO Uzgrnc0822 [facility] [id number] VLDL Cholesterol Jyoti VLDLCH mg/dL (Normal) Range: 5-40 Comments: The calculation for the VLDL cholesterol is not valid whentriglyceride level is >400 mg/dL.Triglyceride result indicated is too high for an accurate LDLcholesterol estimation. HDL Cholesterol 30 mg/dL (Abnormal) Comments: According to ATP-III Guidelines, HDL-C >59 mg/dL is considered anegative risk factor for CHD. Triglycerides 656 mg/dL (Abnormal) Range: 0-149 Cholesterol, Total 178 mg/dL (Normal) Range: 100-199 :36 CBC WITH MANUAL DIFF Comments: PATIENT WAS FASTINGPERFORMED BY: LATTO Ovllkp4498 [facility] [id number] Information: [id number] (16950) Immature Grans (Abs) 0.0 {x10E3/uL} (Normal) Range: 0.0-0.1 Immature Granulocytes 0 % (Normal) Range: 0-2 Baso (Absolute) 0.0 {x10E3/uL} (Normal) Range: 0.0-0.2 Eos (Absolute) 0.1 {x10E3/uL} (Normal) Range: 0.0-0.4 Monocytes(Absolute) 0.7 {x10E3/uL} (Normal) Range: 0.1-0.9 Lymphs (Absolute) 1.9 {x10E3/uL} (Normal) Range: 0.7-3.1 Neutrophils (Absolute) 5.5 {x10E3/uL} (Normal) Range: 1.4-7.0 Basos 0 % (Normal) Range: 0-3 Eos 1 % (Normal) Range: 0-5 Monocytes 8 % (Normal) Range: 4-12 Lymphs 23 % (Normal) Range: 14-46 Neutrophils 68 % (Normal) Range: 40-74 Platelets 234 {x10E3/uL} (Normal) Range: 150-379 RDW 16.4 % (Abnormal) Range: 12.3-15.4 MCHC 32.0 g/dL (Normal) Range: 31.5-35.7 MCH 26.4 pg (Abnormal) Range: 26.6-33.0 MCV 82 fL (Normal) Range: 79-97 Hematocrit 35.6 % (Normal) Range: 34.0-46.6 Hemoglobin 11.4 g/dL (Normal) Range: 11.1-15.9 RBC 4.32 {x10E6/uL} (Normal) Range: 3.77-5.28 WBC 8.3 {x10E3/uL} (Normal) Range: 3.4-10.8 :36 METABOLIC PANEL, COMPREHENSIVE Comments: PATIENT WAS FASTINGPERFORMED BY: [facility] SouthCoRobert Wood Johnson University HospitalUbojld7385 [facility] [id number] (76650) ALT (SGPT) 6 [iU]/L (Normal) Range: 0-32 AST (SGOT) 11 [iU]/L (Normal) Range: 0-40 Alkaline Phosphatase, S 76 [iU]/L (Normal) Range: 39-117 Bilirubin, Total 0.3 mg/dL (Normal) Range: 0.0-1.2 A/G Ratio 2.0 (Normal) Range: 1.1-2.5 Globulin, Total 2.1 g/dL (Normal) Range: 1.5-4.5 Albumin, Serum 4.1 g/dL (Normal) Range: 3.5-4.8 Protein, Total, Serum 6.2 g/dL (Normal) Range: 6.0-8.5 Calcium, Serum 9.4 mg/dL (Normal) Range: 8.6-10.2 Carbon Dioxide, Total 27 mmol/L (Normal) Range: 18-29 Chloride, Serum 98 mmol/L (Normal) Range: 97-108 Potassium, Serum 4.1 mmol/L (Normal) Range: 3.5-5.2 Sodium, Serum 140 mmol/L (Normal) Range: 134-144 BUN/Creatinine Ratio 17 (Normal) Range: 11-26 eGFR If Africn Am 101 mL/min/1.73 (Normal) eGFR If NonAfricn Am 87 mL/min/1.73 (Normal) Creatinine, Serum 0.69 mg/dL (Normal) Range: 0.57-1.00 BUN 12 mg/dL (Normal) Range: 8-27 Glucose, Serum 174 mg/dL (Abnormal) Range: 65-99 :36 Vitamin D Hydroxy (53536) Comments: PATIENT WAS FASTINGPERFORMED BY: [facility]Select [facility]6370 [facility] [id number] Vitamin D, 25-Hydroxy 17.5 ng/mL (Abnormal) Range: 30.0-100.0 Comments: Vitamin D deficiency has been defined by the [place] of[place]icine and an Endocrine Society practice guideline as alevel of serum 25-OH vitamin D less than 20 ng/mL (1,2).The Endocrine Society went on to further define vitamin Dinsufficiency as a level between 21 and 29 ng/mL (2).1. IOM ([place] of Medicine). 2010. Dietary reference intakes for calcium and D. [place]: The National Academies Press.2. Bobo MF, Estrellita STOCKTON, Maddi CALIX, et al. Evaluation, treatment, and prevention of vitamin D deficiency: an Endocrine Society clinical practice guideline. JCEM. 2010; 96(7):1911-30. :36 VITAMIN B-12 (CYANOCOBALAMIN) Comments: PATIENT WAS FASTINGPERFORMED BY: [facility] Ezwlnu5124 Ryan RoadDublin [place] [id number] (85947) Vitamin B12 264 pg/mL (Normal) Range: 211-946 :36 IRON (13554) Comments: PATIENT WAS FASTINGPERFORMED BY: [facility] Fejtjj0970 [address] RoadDublin [place] [id number] Iron, Serum 52 ug/dL (Normal) Range: 35-155 14-Yiw-198135:54 HgA1C , Office (21695) HgA1C , Office 7.1 % (Normal) Range: 4.6 - 7.1 :09 VITAMIN B-12 (CYANOCOBALAMIN) Comments: PATIENT WAS FASTINGPERFORMED BY: [facility] Aqdlnc7922 [address] RoadDublin [place] [id number] (97550) Vitamin B12 704 pg/mL (Normal) Range: 211-946 :09 Vitamin D Hydroxy (75521) Comments: PATIENT WAS FASTINGPERFORMED BY: CB [facility] Nwvjnx9078 [address] RoadDublin [place] [id number] Vitamin D, 25-Hydroxy 21.8 ng/mL (Abnormal) Range: 30.0-100.0 Comments: Vitamin D deficiency has been defined by the [place] of[place]icine and an Endocrine Society practice guideline as alevel of serum 25-OH vitamin D less than 20 ng/mL (1,2).The Endocrine Society went on to further define vitamin Dinsufficiency as a level between 21 and 29 ng/mL (2).1. IOM ([place] of [employer]). 2010. Dietary reference intakes for calcium and D. [place]: The National Academies Press.2. Bobo MF, Estrellita NC, Maddi CALIX, et al. Evaluation, treatment, and prevention of vitamin D deficiency: an Endocrine Society clinical practice guideline. JCEM. 2010; 96(7):1911-30. :09 MICROALBUMIN: CREATININE RATIO Comments: PATIENT WAS FASTINGPERFORMED BY: CB [facility] Tiuqkm1315 [address] RoadDublin [place] [id number] (52640) AND (00758) Microalb/Creat Ratio 24.2 {mg/g_creat} (Normal) Range: 0.0-30.0 Microalbumin, Urine 37.1 ug/mL (Abnormal) Range: 0.0-17.0 Creatinine, Urine 153.6 mg/dL (Normal) Range: 15.0-278.0 :09 METABOLIC PANEL, COMPREHENSIVE Comments: PATIENT WAS FASTINGPERFORMED BY: BELKYS LabCoRobert Wood Johnson University HospitalBniwur8265 [facility] [id number] (12753) ALT (SGPT) 9 [iU]/L (Normal) Range: 0-32 AST (SGOT) 16 [iU]/L (Normal) Range: 0-40 Alkaline Phosphatase, S 81 [iU]/L (Normal) Range: 39-117 Bilirubin, Total 0.3 mg/dL (Normal) Range: 0.0-1.2 A/G Ratio 1.8 (Normal) Range: 1.1-2.5 Globulin, Total 2.3 g/dL (Normal) Range: 1.5-4.5 Albumin, Serum 4.2 g/dL (Normal) Range: 3.5-4.8 Calcium, Serum 9.5 mg/dL (Normal) Range: 8.6-10.2 Protein, Total, Serum 6.5 g/dL (Normal) Range: 6.0-8.5 Carbon Dioxide, Total 28 mmol/L (Normal) Range: 19-28 Chloride, Serum 96 mmol/L (Abnormal) Range: 97-108 Potassium, Serum 4.2 mmol/L (Normal) Range: 3.5-5.2 Sodium, Serum 139 mmol/L (Normal) Range: 134-144 BUN/Creatinine Ratio 18 (Normal) Range: 11-26 eGFR If Africn Am 102 mL/min/1.73 (Normal) eGFR If NonAfricn Am 89 mL/min/1.73 (Normal) Creatinine, Serum 0.66 mg/dL (Normal) Range: 0.57-1.00 BUN 12 mg/dL (Normal) Range: 8-27 Glucose, Serum 150 mg/dL (Abnormal) Range: 65-99 :09 CBC WITH MANUAL DIFF Comments: PATIENT WAS FASTINGPERFORMED BY: [facility] AttackCoRobert Wood Johnson University HospitalRxpdix8167 [facility] [id number] Information: [id number] (45302) Immature Grans (Abs) 0.0 {x10E3/uL} (Normal) Range: 0.0-0.1 Immature Granulocytes 0 % (Normal) Range: 0-2 Baso (Absolute) 0.0 {x10E3/uL} (Normal) Range: 0.0-0.2 Eos (Absolute) 0.2 {x10E3/uL} (Normal) Range: 0.0-0.4 Monocytes(Absolute) 0.7 {x10E3/uL} (Normal) Range: 0.1-0.9 Lymphs (Absolute) 1.7 {x10E3/uL} (Normal) Range: 0.7-3.1 Neutrophils (Absolute) 5.5 {x10E3/uL} (Normal) Range: 1.4-7.0 Basos 0 % (Normal) Range: 0-3 Eos 2 % (Normal) Range: 0-5 Monocytes 8 % (Normal) Range: 4-12 Lymphs 21 % (Normal) Range: 14-46 Neutrophils 69 % (Normal) Range: 40-74 Platelets 221 {x10E3/uL} (Normal) Range: 155-379 RDW 15.4 % (Normal) Range: 12.3-15.4 MCHC 31.7 g/dL (Normal) Range: 31.5-35.7 MCH 25.7 pg (Abnormal) Range: 26.6-33.0 MCV 81 fL (Normal) Range: 79-97 Hematocrit 36.0 % (Normal) Range: 34.0-46.6 Hemoglobin 11.4 g/dL (Normal) Range: 11.1-15.9 RBC 4.44 {x10E6/uL} (Normal) Range: 3.77-5.28 WBC 8.1 {x10E3/uL} (Normal) Range: 3.4-10.8 23-Xrn-82344:09 LIPID PANEL (97276) Comments: PATIENT WAS FASTINGPERFORMED BY: LabCoRobert Wood Johnson University HospitalDtdysc8900 [facility] [id number] VLDL Cholesterol Jyoti VLDLCH mg/dL (Normal) Range: 5-40 Comments: The calculation for the VLDL cholesterol is not valid whentriglyceride level is >400 mg/dL.Triglyceride result indicated is too high for an accurate LDLcholesterol estimation. HDL Cholesterol 31 mg/dL (Abnormal) Comments: According to ATP-III Guidelines, HDL-C >59 mg/dL is considered anegative risk factor for CHD. Triglycerides 504 mg/dL (Abnormal) Range: 0-149 Cholesterol, Total 173 mg/dL (Normal) Range: 100-199 :23 HgA1C , Office (19739) HgA1C , Office 7.2 % (Abnormal) Range: 4.6 - 7.1 33-Xzp-529855:08 FOOT MIN 3 VIEWS Radiology Report See Note Comments: STUDY: X-RAY - RIGHT FOOT CLINICAL: Female, 71 years old. Atraumatic foot pain. TECHNIQUE: 3 view(s) of the foot. COMPARISON: None. FINDINGS:There is a planta (Normal) r calcaneal spur. There is evidence of degenerativechanges at the tibial talar joint. Normal visualized subtalar, talonavicular, calcaneocuboid, tarsal andtarsometatarsal articulations. Normal metatars i. 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 Normal tibial and fibular sesamoid bones. Normalinterphalangealjoint of the great toe. Normal phalanges of the great toe. Normal second through fifth metatarsophalangeal joints. Normalinterphalangeal joints and phalanges of the lesser toes. There is non-specific soft tissue swelling of the foot. IMPRESSION:Degenerative changes at the first metatarsal phalangeal joint.Degenerative changes at the tibial talar joint.Plantar spur. Signed:John Babcock M.D.November 02, 2012 at 3:41:31 PM [id number] Signed GP/GP If you are the referring physician and would like to consult with theradiologist who provided this interpretation, please contact Imani Hayes at [phone]. If this radiologist is unavailable, youwill be directed to another radiologist to assist. If you are a patient with a question regarding this report, pleasecontactyour referring lisa gonzalez directly. Professional Interpretation Provided By: [facility], Phone , These documents contain legally protected and confidential healthinformation intended only for the use of the individual or entity namedabove. If you are not the intended recipient, you are hereby notifiedthatany disclosure, copying, distribution, or other use of these documents isstrictly pr ohibited. If you have received this information in error,pleasenotify the sender immediately and arrange for the return or destructionofthese documents. Dictated on 11/02/12 1541 by Shayna ROSAS,Emma Goinsranscribed on 11/02/12 1543 by ITS IMPORTSign by John Babcock MD on 11/02/12 1544 Sign by: John Babcock MD [id number] MICROALBUMIN: CREATININE RATIO Comments: PATIENT WAS FASTINGPERFORMED BY: [facility]gk[facility] [id number] ([id number]) AND ([id number]) Microalb/Creat Ratio 31.2 {mg/g_creat} (Abnormal) Range: 0.0-30.0 Microalbumin, Urine 44.7 ug/mL (Abnormal) Range: 0.0-17.0 Creatinine, Urine 143.3 mg/dL (Normal) Range: 15.0-278.0 [id number] CBC WITH MANUAL DIFF Comments: PATIENT WAS FASTINGPERFORMED BY: [facility]Robert [facility] HospitalOzfdtq5404 [facility] [id number] Information: [id number] ([id number]) Immature Grans (Abs) 0.0 {x10E3/uL} (Normal) Range: 0.0-0.1 Immature Granulocytes 0 % (Normal) Range: 0-2 Baso (Absolute) 0.0 {x10E3/uL} (Normal) Range: 0.0-0.2 Eos (Absolute) 0.1 {x10E3/uL} (Normal) Range: 0.0-0.4 Monocytes(Absolute) 0.5 {x10E3/uL} (Normal) Range: 0.1-0.9 Lymphs (Absolute) 1.5 {x10E3/uL} (Normal) Range: 0.7-3.1 Neutrophils (Absolute) 4.7 {x10E3/uL} (Normal) Range: 1.4-7.0 Basos 0 % (Normal) Range: 0-3 Eos 2 % (Normal) Range: 0-5 Monocytes 8 % (Normal) Range: 4-12 Lymphs 21 % (Normal) Range: 14-46 Neutrophils 69 % (Normal) Range: 40-74 Platelets 224 {x10E3/uL} (Normal) Range: 155-379 RDW 14.8 % (Normal) Range: 12.3-15.4 MCHC 32.3 g/dL (Normal) Range: 31.5-35.7 MCH 26.9 pg (Normal) Range: 26.6-33.0 MCV 83 fL (Normal) Range: 79-97 Hematocrit 37.2 % (Normal) Range: 34.0-46.6 Hemoglobin 12.0 g/dL (Normal) Range: 11.1-15.9 RBC 4.46 {x10E6/uL} (Normal) Range: 3.77-5.28 WBC 6.9 {x10E3/uL} (Normal) Range: 3.4-10.8 07-Mfw-773877:33 METABOLIC PANEL, COMPREHENSIVE Comments: PATIENT WAS FASTINGPERFORMED BY: [facility]CoRobert [facility] HospitalRgyjyt7282 [facility] [id number] ([id number]) ALT (SGPT) 10 [iU]/L (Normal) Range: 0-32 AST (SGOT) 21 [iU]/L (Normal) Range: 0-40 Alkaline Phosphatase, S 79 [iU]/L (Normal) Range: 45-108 Bilirubin, Total 0.4 mg/dL (Normal) Range: 0.0-1.2 A/G Ratio 1.7 (Normal) Range: 1.1-2.5 Globulin, Total 2.3 g/dL (Normal) Range: 1.5-4.5 Albumin, Serum 4.0 g/dL (Normal) Range: 3.5-4.8 Protein, Total, Serum 6.3 g/dL (Normal) Range: 6.0-8.5 Calcium, Serum 9.5 mg/dL (Normal) Range: 8.6-10.2 Carbon Dioxide, Total 24 mmol/L (Normal) Range: 19-28 Chloride, Serum 100 mmol/L (Normal) Range: 97-108 Potassium, Serum 4.2 mmol/L (Normal) Range: 3.5-5.2 Sodium, Serum 139 mmol/L (Normal) Range: 134-144 BUN/Creatinine Ratio 17 (Normal) Range: 11-26 eGFR If Africn Am 100 mL/min/1.73 (Normal) eGFR If NonAfricn Am 87 mL/min/1.73 (Normal) Creatinine, Serum 0.70 mg/dL (Normal) Range: 0.57-1.00 BUN 12 mg/dL (Normal) Range: 8-27 Glucose, Serum 158 mg/dL (Abnormal) Range: 65-99 54-Mgy-078951:33 VITAMIN B-12 (CYANOCOBALAMIN) Comments: PATIENT WAS FASTINGPERFORMED BY: [employer] [facility] [id number] ([id number]) Vitamin B12 >1999 pg/mL (Abnormal) Range: 211-946 26-Ogx-004874:33 IRON BINDING CAPACITY (TIBC) Comments: PATIENT WAS FASTINGPERFORMED BY: [employer] [id number] ([id number]) Iron Saturation 16 % (Normal) Range: 15-55 Iron, Serum 59 ug/dL (Normal) Range: 35-155 UIBC 315 ug/dL (Normal) Range: 150-375 Iron Bind.Cap.(TIBC) 374 ug/dL (Normal) Range: 250-450 86-Tfo-474830:33 FERRITIN (37653) Comments: PATIENT WAS FASTINGPERFORMED BY: [employer] [id number] Ferritin, Serum 29 ng/mL (Normal) Range: 15-150 88-Ywx-083222:33 HEPATIC FUNCTION PANEL Comments: PATIENT WAS FASTINGPERFORMED BY: CB [facility] Cdzicf5[address] [facility] Hospital[facility] [place] [id number] ([id number]) Bilirubin, Direct 0.12 mg/dL (Normal) Range: 0.00-0.40 :33 LIPID PANEL (37780) Comments: PATIENT WAS FASTINGPERFORMED BY: [facility] Oubkcq7001 [address] [facility] Hospitalblin [place] [id number] VLDL Cholesterol Jyoti VLDLCH mg/dL (Normal) Range: 5-40 Comments: The calculation for the VLDL cholesterol is not valid whentriglyceride level is >400 mg/dL.Triglyceride result indicated is too high for an accurate LDLcholesterol estimation. HDL Cholesterol 26 mg/dL (Abnormal) Comments: According to ATP-III Guidelines, HDL-C >59 mg/dL is considered anegative risk factor for CHD. Triglycerides 541 mg/dL (Abnormal) Range: 0-149 Cholesterol, Total 174 mg/dL (Normal) Range: 100-199 :33 Vitamin D Hydroxy (44095) Comments: PATIENT WAS FASTINGPERFORMED BY: [facility] Pgonhx4004 [address] [facility] [place] [id number] Vitamin D, 25-Hydroxy 21.3 ng/mL (Abnormal) Range: 30.0-100.0 Comments: Vitamin D deficiency has been defined by the [place] of[place] and an Endocrine Society practice guideline as alevel of serum 25-OH vitamin D less than 20 ng/mL (1,2).The Endocrine Society went on to further define vitamin Dinsufficiency as a level between 21 and 29 ng/mL (2).1. IOM ([place] of Medicine). 2010. Dietary reference intakes for calcium and D. [place]: The National Academies Press.2. Bobo MF, Estrellita NC, Maddi CALIX, et al. Evaluation, treatment, and prevention of vitamin D deficiency: an Endocrine Society clinical practice guideline. JCEM. 2010; 96(7):1911-30. 40-Myc-419553:22 HgA1C , Office (50299) HgA1C , Office 6.8 % (Normal) Range: 4.6 - 7.1 8-Qbn-897642:41 DEXA BONE DENSITY STUDY () Radiology Report See Note Comments: PROCEDURE: DUAL ENERGY X-RAY ABSORPTIOMETRY / DXA REASON FOR EXAM: Female, 71 years old. The patient is postmenopausal. TECHNIQUE: Bone Mineral Density (BMD) measurements of lumbar spine andbilate (Normal) ral hips were obtained. COMPARISON: Comparison is made with prior study dated March. FINDINGS: Lumbar Spine (L1-L4): g/cm2 (0.988) / T-score (-1.8) / Z-score (-0.1)Findings are suggestive of osteopenia with a moderate fracture risk. Left Femur Total: g/cm2 (0.987) / T-score (-0.2) / Z-score (1.4)Left Femoral Neck: g/cm2 (0.798) / T-score (-1 .7) / Z-score (0.0)Right Femur Total: g/cm2 (0.975) / T-score (-0.3) / Z-score (1.3)Right Femoral Neck: g/cm2 (0.742) / T-score (-2.1) / Z- score (-0.4) The T-Scores on the most recent prior examination were: Lumbar Spine (L1-L4): There has been improvement of bone density sincetheprevious examination. Left Femur Total: which represents a worsening of 0.7%.Right Femur Total: whic h represents a worsening of 5.8%. IMPRESSION:The patient is considered osteopenic as outlined below according to WorldHeath Organization (WHO) criteria with a moderate fracture risk. Therehasbeen worsening of bone density since the previous examination. Reference Information:The T- score is the number of standard deviations above o r below thestandard which is normal for young adults at their peak bone mineraldensity. The World Health Organization (WHO) interprets the T-scores asfollows: Above - 1 Normal bone densityBetwe en -1 and -2.5 OsteopeniaEqual to / or below -2.5 Osteoporosis As a practical clinical guideline, osteopenia may be graded as follows:Mild -1 through - 1.5Moderate -1.6 through -2.0Severe -2.1 thr ough -2.4 The Z-score is the number of standard deviations above or below age-matchedcontrols. A Z-score of less than -1.5 would be considered abnormal. References:1. NIH Osteoporosis and Related Bone Diseases http://www.osteo.org2. International Society for Clinical Densitometry http://www.iscd.org3. National Osteoporosis Foundation http://www.nof.org Signed:John Babcock M.D.August 18, 2012 at 3:19:26 PM [id number] Signed GP/GP If you are the referring physician and would like to consult with theradiologist who provided this interpretation, please contact Imani Hayes at [phone]. If this radiologist is unavailable, youwill be directed to another radiologist to assist. If you are a patient with a question regarding this report, pleasecontactyour referring physician directly. Professional Interpretation Provided By: [facility], Phone , These documents contain legally protected and confidential healthinformation intended only for the use of the individual or entity namedabove. If you are not the intended recipient, you are hereby notifiedthatany disclosure, copying, distribution, or other use of these documents isstrictly p rohibited. If you have received this information in error,pleasenotify the sender immediately and arrange for the return or destructionofthese documents. Dictated on 08/18/12 1519 by Wild Babcock MDribed on 08/18/12 1521 by ITS IMPORTSign by John Babcock MD on 08/18/12 152 Sign by: John Babcock MD 9-Wwu-331847:40 BILAT SCRN DIGITAL & CAD Radiology Report See Note Comments: MAMMOGRAPHY - BILATERAL SCREENING REASON FOR EXAM: Female, 71 years old. Routine annual screeningexamination. PERTINENT HISTORY: Non-contributory. TECHNIQUE: Digital examination. Med iolateral ob (Normal) lique (MLO) andcraniocaudad (CC) views of both breasts were obtained. CAD: CAD wasperformed on this study. COMPARISON: Comparison is made with prior examination dated [id number]. FINDINGS:The breast composition is composed of scattered fibroglandular tissuesranging from 25% to 50% of the breast. There are no dominant masses or suspicious calcifications. No oth er significant abnormalities are identified. There has been nosignificant change since the prior study. IMPRESSION:Stable bilateral screening mammogram. Yearly follo w-up recommended. (A) ASSESSMENT CATEGORY:BIRADS Category 2: Benign finding(s). A letter regarding these resultswill be sent to the patient by the facility within 30 days. Approximately 10% of breast cancers are not detected by mammography. Anormal mammogram should not delay biopsy of a clinically suspiciousabnormality. Signed:John Babcock M.D.August 18 3 at 1:37:33 PM [id number] Signed GP/GP If you are the referring physician and would like to consult with theradiologist who provided this interpretation, please contact Sunil louis M.D. at [phone]. If this radiologist is unavailable, youwill be directed to another radiologist to assist. If you are a patient with a question regarding this report, pleasecontactyour referr ing physician directly. Professional Interpretation Provided By: [facility], Phone , These documents contain legally protected and confidential healthinformation intended only for the use of the individual or entity namedabove. If you are not the intended recipient, you are hereby notifiedthatany disclosure, copying, distribution, or other use of these documents isstrict ly prohibited. If you have received this information in error,pleasenotify the sender immediately and arrange for the return or destructionofthese documents. Dictated on 08/18/12 1337 by Rosalia Babcock MDranscribed on 08/18/12 1359 by ITS IMPORTSign by John Babcock MD on 08/18/12 1400 Sign by: John Babcock MD 3-Bcj-759211:36 VERT FX ASSESS/LAT BONE DEN(H) Radiology Report See Note Comments: PROCEDURE: DUAL ENERGY X-RAY ABSORPTIOMETRY / DXA REASON FOR EXAM: Female, 71 years old. Vertebral fracture assessment. TECHNIQUE: Bone Mineral Density (BMD) measurements of lumbar spine . COMPAR (Normal) JONELLE: None. FINDINGS: A lateral view of the thoracic and lumbar spine was obtained. There is amoderate degree of wedging of the T9 vertebra. Kyphotic deformity iss eenat that site. There is evidence of osteopenia. IMPRESSION:There is moderate compression of the T9 vertebra anteriorly. Referenc e Information:The T-score is the number of standard deviations above or below thestandard which is normal for young adults at their peak bone mineraldensity. The World Health Organization (WHO) interpre ts the T-scores asfollows: Above -1 Normal bone densityBetween - 1 and -2.5 OsteopeniaEqual to / or below -2.5 Osteoporosis As a practical clinical guideline, osteopenia may be graded as fo llows:Mild -1 through -1.5Moderate -1.6 through -2.0Severe -2.1 through -2.4 The Z-score is the number of standard deviations above or below age- matchedcontrols. A Z-score of less than -1.5 would be considered abnormal. References:1. NIH Osteoporosis and Related Bone Diseases http://www.osteo.org2. International Society for Clinical Densitometry http://www.iscd.org3. National Osteoporosis Founda tion http://www.nof.org Signed:John Babcock M.D.August 20, 2012 at 2:14:56 PM [id number] Signed GP/GP If you are the referring physician and would like to consult with [facility] who provided this interpretation, please contact Imani Hayes at [phone]. If this radiologist is unavailable, youwill be directed to another radiologist to assist. If you are a clarice ent with a question regarding this report, pleasecontactyour referring physician directly. Professional Interpretation Provided By: [facility], Phone , These documents con tain legally protected and confidential healthinformation intended only for the use of the individual or entity namedabove. If you are not the intended recipient, you are hereby notifiedthatany disclosu re, copying, distribution, or other use of these documents isstrictly prohibited. If you have received this information in error,pleasenotify the sender immediately and arrange for the return or destruc tionofthese documents. Dictated on 08/20/12 1414 by Nidhi Babcock MDscribed on 08/20/12 1416 by ITS IMPORTSign by John Babcock MD on 08/20/12 1417 Sign by: John Babcock MD 23-Max-91436:10 LIPID PANEL ([id number]) Comments: PATIENT WAS FASTINGPERFORMED BY: [facility] Kjgucl4549 [facility] [id number] VLDL Cholesterol Jyoti VLDLCH mg/dL (Normal) Range: 5-40 Comments: The calculation for the VLDL cholesterol is not valid whentriglyceride level is >400 mg/dL.Triglyceride result indicated is too high for an accurate LDLcholesterol estimation. HDL Cholesterol 24 mg/dL (Abnormal) Comments: According to ATP-III Guidelines, HDL-C >59 mg/dL is considered anegative risk factor for CHD. Triglycerides 718 mg/dL (Abnormal) Range: 0-149 Cholesterol, Total 183 mg/dL (Normal) Range: 100-199 08-Jxd-47250:10 METABOLIC PANEL, COMPREHENSIVE Comments: PATIENT WAS FASTINGPERFORMED BY: [facility] [id number] ([id number]) ALT (SGPT) 5 [iU]/L (Normal) Range: 0-32 AST (SGOT) 13 [iU]/L (Normal) Range: 0-40 A/G Ratio 1.7 (Normal) Range: 1.1-2.5 Alkaline Phosphatase, S 73 [iU]/L (Normal) Range: 45-108 Comments: Please note reference interval change Bilirubin, Total 0.3 mg/dL (Normal) Range: 0.0-1.2 Globulin, Total 2.3 g/dL (Normal) Range: 1.5-4.5 Albumin, Serum 3.9 g/dL (Normal) Range: 3.5-4.8 Protein, Total, Serum 6.2 g/dL (Normal) Range: 6.0-8.5 Calcium, Serum 9.4 mg/dL (Normal) Range: 8.6-10.2 Carbon Dioxide, Total 19 mmol/L (Normal) Range: 19-28 Chloride, Serum 101 mmol/L (Normal) Range: 97-108 Potassium, Serum 4.0 mmol/L (Normal) Range: 3.5-5.2 Sodium, Serum 140 mmol/L (Normal) Range: 134-144 BUN/Creatinine Ratio 23 (Normal) Range: 11-26 eGFR If Africn Am 105 mL/min/1.73 (Normal) eGFR If NonAfricn Am 91 mL/min/1.73 (Normal) Creatinine, Serum 0.62 mg/dL (Normal) Range: 0.57-1.00 BUN 14 mg/dL (Normal) Range: 8-27 Glucose, Serum 133 mg/dL (Abnormal) Range: 65-99 23-Mac-08833:10 IRON BINDING CAPACITY (TIBC) Comments: PATIENT WAS FASTINGPERFORMED BY: [facility] [id number] ([id number]) Iron Saturation 15 % (Normal) Range: 15-55 Iron, Serum 53 ug/dL (Normal) Range: 35-155 UIBC 308 ug/dL (Normal) Range: 150-375 Iron Bind.Cap.(TIBC) 361 ug/dL (Normal) Range: 250-450 :10 FERRITIN (19188) Comments: PATIENT WAS FASTINGPERFORMED BY: [facility] [id number] Ferritin, Serum 25 ng/mL (Normal) Range: 15-150 42-Jdi-82809:10 VITAMIN B-12 (CYANOCOBALAMIN) Comments: PATIENT WAS FASTINGPERFORMED BY: [facility] [id number] ([id number]) Vitamin B12 258 pg/mL (Normal) Range: 211-946 :10 CBC WITH MANUAL DIFF Comments: PATIENT WAS FASTINGPERFORMED BY: [facility] [id number] Information: ADD [id number] AND DRAW FEE [id number] (43372) Immature Grans (Abs) 0.0 {x10E3/uL} (Normal) Range: 0.0-0.1 Immature Granulocytes 0 % (Normal) Range: 0-2 Baso (Absolute) 0.0 {x10E3/uL} (Normal) Range: 0.0-0.2 Eos (Absolute) 0.2 {x10E3/uL} (Normal) Range: 0.0-0.4 Monocytes(Absolute) 0.6 {x10E3/uL} (Normal) Range: 0.1-1.0 Lymphs (Absolute) 2.0 {x10E3/uL} (Normal) Range: 0.7-4.5 Neutrophils (Absolute) 4.3 {x10E3/uL} (Normal) Range: 1.8-7.8 Basos 0 % (Normal) Range: 0-3 Eos 2 % (Normal) Range: 0-7 Monocytes 9 % (Normal) Range: 4-13 Lymphs 28 % (Normal) Range: 14-46 Neutrophils 61 % (Normal) Range: 40-74 Platelets 219 {x10E3/uL} (Normal) Range: 140-415 RDW 15.3 % (Normal) Range: 12.3-15.4 MCHC 32.0 g/dL (Normal) Range: 31.5-35.7 MCH 26.4 pg (Abnormal) Range: 26.6-33.0 MCV 83 fL (Normal) Range: 79-97 Hematocrit 36.2 % (Normal) Range: 34.0-46.6 Hemoglobin 11.6 g/dL (Normal) Range: 11.1-15.9 RBC 4.39 {x10E6/uL} (Normal) Range: 3.77-5.28 WBC 7.1 {x10E3/uL} (Normal) Range: 4.0-10.5 :10 Vitamin D Hydroxy (77255) Comments: PATIENT WAS FASTINGPERFORMED BY: [facility] [id number] Vitamin D, 25-Hydroxy 20.4 ng/mL (Abnormal) Range: 30.0-100.0 Comments: Vitamin D deficiency has been defined by the [place] ofMer[facility] Hospitalcine and an Endocrine Society practice guideline as alevel of serum 25-OH vitamin D less than 20 ng/mL (1,2).The Endocrine Society went on to further define vitamin Dinsufficiency as a level between 21 and 29 ng/mL (2).1. IOM ([place] of Medicine). 2010. Dietary reference intakes for calcium and D. [place]: The National Academies Press.2. Bobo MF, Estrellita NC, Maddi CALIX, et al. Evaluation, treatment, and prevention of vitamin D deficiency: an Endocrine Society clinical practice guideline. JCEM. 2010; 96(7):1911-30. :08 IRON (56194) Comments: PATIENT WAS FASTINGPERFORMED BY: [facility] Kyineb2133 Ryan RoadDublin [place] [id number] Iron, Serum 58 ug/dL (Normal) Range: 35-155 8-Jwi-330288:08 FERRITIN (53699) Comments: PATIENT WAS FASTINGPERFORMED BY: [facility] Cvfhwk5313 Ryan RoadDublin [place] [id number] Ferritin, Serum 25 ng/mL (Normal) Range: 13-150 2-Hvm-594951:08 VITAMIN B-12 (CYANOCOBALAMIN) Comments: PATIENT WAS FASTINGPERFORMED BY: [facility] Aqpmkc1202 Ryan RoadDublin [place] [id number] ([id number]) Vitamin B12 390 pg/mL (Normal) Range: 211-946 5-Tcl-294384:08 Vitamin D Hydroxy (23789) Comments: PATIENT WAS FASTINGPERFORMED BY: [facility] Mrlsoe2930 [address] RoadDublin [place] [id number] Vitamin D, 25-Hydroxy 25.3 ng/mL (Abnormal) Range: 30.0-100.0 Comments: Vitamin D deficiency has been defined by the [place] of[place]icine and an Endocrine Society practice guideline as alevel of serum 25-OH vitamin D less than 20 ng/mL (1,2).The Endocrine Society went on to further define vitamin Dinsufficiency as a level between 21 and 29 ng/mL (2).1. IOM ([place] of Medicine). 2010. Dietary reference intakes for calcium and D. [place]: The National Academies Press.2. Bobo MF, Estrellita STOCKTON, Maddi CALIX, et al. Evaluation, treatment, and prevention of vitamin D deficiency: an Endocrine Society clinical practice guideline. JCEM. 2010; 96(7):1911-30. :08 METABOLIC PANEL, COMPREHENSIVE Comments: PATIENT WAS FASTINGPERFORMED BY: [facility] Wffhvl2055 [address] RoadDublin [place] [id number] ([id number]) ALT (SGPT) 6 [iU]/L (Normal) Range: 0-32 AST (SGOT) 14 [iU]/L (Normal) Range: 0-40 Alkaline Phosphatase, S 69 [iU]/L (Normal) Range: 25-165 Bilirubin, Total 0.4 mg/dL (Normal) Range: 0.0-1.2 A/G Ratio 1.8 (Normal) Range: 1.1-2.5 Globulin, Total 2.2 g/dL (Normal) Range: 1.5-4.5 Albumin, Serum 4.0 g/dL (Normal) Range: 3.5-4.8 Protein, Total, Serum 6.2 g/dL (Normal) Range: 6.0-8.5 Calcium, Serum 9.1 mg/dL (Normal) Range: 8.6-10.2 Carbon Dioxide, Total 24 mmol/L (Normal) Range: 20-32 Chloride, Serum 100 mmol/L (Normal) Range: 97-108 Potassium, Serum 4.1 mmol/L (Normal) Range: 3.5-5.2 Sodium, Serum 140 mmol/L (Normal) Range: 134-144 BUN/Creatinine Ratio 14 (Normal) Range: 11-26 eGFR If Africn Am 104 mL/min/1.73 (Normal) eGFR If NonAfricn Am 90 mL/min/1.73 (Normal) Creatinine, Serum 0.64 mg/dL (Normal) Range: 0.57-1.00 BUN 9 mg/dL (Normal) Range: 8-27 Glucose, Serum 124 mg/dL (Abnormal) Range: 65-99 4-Fkp-930033:08 CBC WITH MANUAL DIFF Comments: PATIENT WAS FASTINGPERFORMED BY: [facility]Robert [facility] HospitalIqrzcc3904 [facility] [id number] Information: [id number] ([id number]) Immature Grans (Abs) 0.0 {x10E3/uL} (Normal) Range: 0.0-0.1 Immature Granulocytes 0 % (Normal) Range: 0-2 Baso (Absolute) 0.0 {x10E3/uL} (Normal) Range: 0.0-0.2 Eos (Absolute) 0.2 {x10E3/uL} (Normal) Range: 0.0-0.4 Monocytes(Absolute) 0.7 {x10E3/uL} (Normal) Range: 0.1-1.0 Lymphs (Absolute) 1.5 {x10E3/uL} (Normal) Range: 0.7-4.5 Neutrophils (Absolute) 5.8 {x10E3/uL} (Normal) Range: 1.8-7.8 Basos 0 % (Normal) Range: 0-3 Eos 2 % (Normal) Range: 0-7 Monocytes 8 % (Normal) Range: 4-13 Lymphs 19 % (Normal) Range: 14-46 Neutrophils 71 % (Normal) Range: 40-74 Platelets 249 {x10E3/uL} (Normal) Range: 140-415 RDW 16.0 % (Abnormal) Range: 12.3-15.4 MCHC 31.9 g/dL (Normal) Range: 31.5-35.7 MCH 25.8 pg (Abnormal) Range: 26.6-33.0 MCV 81 fL (Normal) Range: 79-97 Hematocrit 36.7 % (Normal) Range: 34.0-46.6 Hemoglobin 11.7 g/dL (Normal) Range: 11.1-15.9 RBC 4.54 {x10E6/uL} (Normal) Range: 3.77-5.28 WBC 8.2 {x10E3/uL} (Normal) Range: 4.0-10.5 3-Lrp-219382:08 LIPID PANEL (88285) Comments: PATIENT WAS FASTINGPERFORMED BY: [facility]Robert [facility] HospitalVckufr3155 [facility] [id number] VLDL Cholesterol Jyoti VLDLCH mg/dL (Normal) Range: 5-40 Comments: The calculation for the VLDL cholesterol is not valid whentriglyceride level is >400 mg/dL.Triglyceride result indicated is too high for an accurate LDLcholesterol estimation. HDL Cholesterol 31 mg/dL (Abnormal) Comments: According to ATP-III Guidelines, HDL-C >59 mg/dL is considered anegative risk factor for CHD. Triglycerides 432 mg/dL (Abnormal) Range: 0-149 Cholesterol, Total 166 mg/dL (Normal) Range: 100-199 :56 HgA1C , Office (27258) HgA1C , Office 7.4 % (Abnormal) Range: 4.6 - 7.1 8-Qpb-911363:56 Blood Glucose , Office (70460) Blood Glucose , Office 142 (Normal) 21-Bii-206377:40 CBCMD RBCM NORM C+C {NORMAL} (Normal) EOS 1 % (Normal) Range: 0-5 PE ADEQUATE (Normal) MON 6 % (Normal) Range: 0-10 LYMPH 11 % (Abnormal) Range: 19-41 PMN 82 % (Abnormal) Range: 47-70 GAURAV 100 (Normal) ANC 9.3 3/uL (Abnormal) Range: 2.0-7.7 PLT 310 K/mm3 (Normal) Range: 150-450 RDW 15.8 % (Abnormal) Range: 11.6-14.6 MCH 26.1 pg (Abnormal) Range: 27.0-32.0 MCHC 31.4 g/dL (Abnormal) Range: 32-36 HCT 39.5 % (Normal) Range: 37-47 MCV 83.2 fL (Normal) Range: 81-99 HGB 12.4 g.dL (Normal) Range: 12.0-15.0 RBC 4.74 {M/mm3} (Normal) Range: 4.2-5.4 WBC 11.2 K/mm3 (Abnormal) Range: 4.4-11.0 78-Mas-071252:40 CMP GAP 7 (Normal) Range: 5-15 CL 99 mmol/L (Normal) Range: 98-107 CO2 29.0 mmol/L (Normal) Range: 21.0-32.0 K 4.7 mmol/L (Normal) Range: 3.5-5.1 NA 135 mmol/L (Abnormal) Range: 136-145 ALT 14 U/L (Normal) Range: 12-78 BIT 0.30 mg/dL (Normal) Range: 0.00-1.00 ALK 49 U/L (Abnormal) Range: 50-136 AST 8 U/L (Abnormal) Range: 15-37 AG 1.0 {RATIO} (Normal) Range: 0.9-2.4 CA 9.7 mg/dL (Normal) Range: 8.5-10.1 ALB 3.7 g/dL (Normal) Range: 3.4-5.0 GLOB 3.6 g/dL (Normal) Range: 2.7-4.2 TPROT 7.3 g/dL (Normal) Range: 6.4-8.2 BC 21.3 {RATIO} (Abnormal) Range: 10-20 CREAT 0.8 mg/dL (Normal) Range: 0.6-1.0 BUN 17 mg/dL (Normal) Range: 7-18 GLU 167 mg/dL (Abnormal) Range: 70-110 Comments: Fasting Glucose result greater than or equal to 126 mg/dL suggests DIABETES MELLITUS per A.D.A. criteria. 02-Suv-78890:04 CHEST WITH CONTRAST Radiology Report See Note (Normal) Comments: PROCEDURE: CT CHEST WITH CONTRAST REASON FOR EXAM: Female, 70 years old. Follow-up for lung nodule. RADIATION DOSAGE (If Supplied By Facility): CTDIvol = ( 17 ) mGy, DLP =(767 ) mGycm T ECHNIQUE: High resolution transaxial imaging was performed followingintravenous administration of 100 ml of Isovue 300 contrast material.Multiplanar coronal and sagittal images were reformatted. COMPARISON: Com vijayaon is made with prior study dated February 15ndJune 14, 2009. FINDINGS: Multiple subcentimeter nodules are once again seen in both lungs. Theseremain stable. No new nodule is seen. There is n o demonstrated pleuralabnormality. There is mild cardiac enlargement. There are calcifications of thecoronary arteries. Normal mediastinum. Normal hilar regions. Normal enhancement of thepulmonary ar teries. 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 There is demineralization of the thoracic spine. There is evidence ofincreased kyphosis. There is approximately 50% loss of height of the T9orT 10 vertebra. There is limited visualization of the liver, spleen, pancreas, adrenalglands, and abdominal aorta without a demonstrated abnormality. IMPRESSION:Once again, there are multiple subcentimeter pulmonary nodules seenbilaterally. These are all unchanged.Right sided aortic arch. Signed:John Babcock M.D.November 07, 2011 at 1:33:21 PM [id number] Signed GP/GP If you ar e the referring physician and would like to consult with theradiologist who provided this interpretation, please contact Imani Hayes at [phone]. If this radiologist is unavailable, youw ill be directed to another radiologist to assist. If you are a patient with a question regarding this report, pleasecontactyour referring physician directly. Professional Interpretation Provided By: Ra martines, Phone , These documents contain legally protected and confidential healthinformation intended only for the use of the individual or entity namedabove. If you are not the intended recipient, you are hereby notifiedthatany disclosure, copying, distribution, or other use of these documents isstrictly prohibited. If you have received this information in error,please notify the sender immediately and arrange for the return or destructionofthese documents. Dictated on 11/07/11 0823 by Shayna ROSAS,Rosaliaranscribed on 11/07/11 1339 by ITS IMPORTSign by Shayna ROSAS,John on 11/07/11 1340 Sign by: John Babcock MD [id number]-Vkl-[id number]:41 Pathology Report Comments: PERFORMED BY: KWCYT [facility] Ylil42018 [facility] [id number] BY: Ke[facility] Hqgsonl98672 [facility] [id number] Information: [id number] See MATER Comments: Material submitted: .SHAVE BIOPSY LEFT UPPER THIGH NEAR GROINClinical history: .POLYPOID LESION Note (Normal) Diagnosis:SHAVE BIOPSY LEFT UPPER THIGH NEAR GROIN:DERMATOLIPOMA OF THE SKIN..GXA/11/03/2011 Electronically signed: .Ubaldo Duran MD, PathologistGross description: .RECEIVED IS A CONTAINER LABELE COMFORT ZUÑIGA AND DESIGNATEDLEFT UPPER THIGH NEAR GROIN. IN FORMALIN IS AN OVOID, YELLOW/PAYTON TISSUEMEASURING 1.8 X 1.3 X 0.9 CM. THE 0.4 CM RESECTION MARGIN IS INKEDGREEN. THE SPECIMEN IS BISECTED AND BOTH HALVES ARE SUBMITTEDIN TWO CASSETTES, A1 AND A2.KAREN/TMZCPT .[id number]-Yaa-[id number]:06 CBC WITH MANUAL DIFF Comments: PATIENT NOT FASTINGPERFORMED BY: LabCoRobert [facility] Johnson University HospitalPjbzjo9479 [facility] [id number] Information: [id number] ([id number]) Immature Grans (Abs) 0.0 {x10E3/uL} (Normal) Range: 0.0-0.1 Immature Granulocytes 0 % (Normal) Range: 0-2 Baso (Absolute) 0.0 {x10E3/uL} (Normal) Range: 0.0-0.2 Eos (Absolute) 0.1 {x10E3/uL} (Normal) Range: 0.0-0.4 Monocytes(Absolute) 0.5 {x10E3/uL} (Normal) Range: 0.1-1.0 Lymphs (Absolute) 1.9 {x10E3/uL} (Normal) Range: 0.7-4.5 Neutrophils (Absolute) 5.3 {x10E3/uL} (Normal) Range: 1.8-7.8 Basos 1 % (Normal) Range: 0-3 Eos 2 % (Normal) Range: 0-7 Monocytes 7 % (Normal) Range: 4-13 Lymphs 24 % (Normal) Range: 14-46 Neutrophils 66 % (Normal) Range: 40-74 Platelets 269 {x10E3/uL} (Normal) Range: 140-415 RDW 16.3 % (Abnormal) Range: 12.3-15.4 MCHC 33.2 g/dL (Normal) Range: 31.5-35.7 MCH 25.3 pg (Abnormal) Range: 26.6-33.0 MCV 76 fL (Abnormal) Range: 79-97 Hematocrit 37.6 % (Normal) Range: 34.0-46.6 Hemoglobin 12.5 g/dL (Normal) Range: 11.1-15.9 RBC 4.95 {x10E6/uL} (Normal) Range: 3.77-5.28 WBC 7.9 {x10E3/uL} (Normal) Range: 4.0-10.5 13-Xel-512347:06 LDH (LD) (LACTATE DEHYDROGENASE) Comments: PATIENT NOT FASTINGPERFORMED BY: [facility] [id number] ([id number]) LDH 198 [iU]/L (Normal) Range: 0-214 58-Ntf-713467:06 IRON BINDING CAPACITY (TIBC) Comments: PATIENT NOT FASTINGPERFORMED BY: [place] 2587870 [facility] [id number] ([id number]) Iron Saturation 11 % (Abnormal) Range: 15-55 Iron, Serum 46 ug/dL (Normal) Range: 35-155 UIBC 389 ug/dL (Abnormal) Range: 150-375 Iron Bind.Cap.(TIBC) 435 ug/dL (Normal) Range: 250-450 :06 FERRITIN (36163) Comments: PATIENT NOT FASTINGPERFORMED BY: [facility] [id number] Ferritin, Serum 12 ng/mL (Abnormal) Range: 13-150 7-Ewe-220473:03 HgA1C , Office (54206) HgA1C , Office 7.1 % (Normal) Range: 4.6 - 7.1 :34 CBC WITH MANUAL DIFF (27344) Comments: PATIENT WAS FASTINGPERFORMED BY: [place] 2587870 [facility] [id number] Immature Grans (Abs) 0.0 {x10E3/uL} (Normal) Range: 0.0-0.1 Immature Granulocytes 0 % (Normal) Baso (Absolute) 0.0 {x10E3/uL} (Normal) Range: 0.0-0.2 Eos (Absolute) 0.2 {x10E3/uL} (Normal) Range: 0.0-0.4 Monocytes(Absolute) 0.9 {x10E3/uL} (Normal) Range: 0.1-0.9 Lymphs (Absolute) 2.1 {x10E3/uL} (Normal) Range: 0.7-3.1 Neutrophils (Absolute) 5.1 {x10E3/uL} (Normal) Range: 1.4-7.0 Basos 0 % (Normal) Eos 2 % (Normal) Monocytes 10 % (Normal) Lymphs 25 % (Normal) Neutrophils 63 % (Normal) Platelets 264 {x10E3/uL} (Normal) Range: 150-379 RDW 16.0 % (Abnormal) Range: 12.3-15.4 MCHC 32.3 g/dL (Normal) Range: 31.5-35.7 MCH 26.0 pg (Abnormal) Range: 26.6-33.0 MCV 81 fL (Normal) Range: 79-97 Hematocrit 37.5 % (Normal) Range: 34.0-46.6 Hemoglobin 12.1 g/dL (Normal) Range: 11.1-15.9 RBC 4.66 {x10E6/uL} (Normal) Range: 3.77-5.28 WBC 8.3 {x10E3/uL} (Normal) Range: 3.4-10.8 3-Nsx-949000:11 FECAL OCCULT- Tubes sent home (95807) FECAL OCCULT HGB ASSAY, QUAL, 1-3 SIMULTANEOU positive (Normal) 9-Bef-050193:30 HgA1C , Office (93142) HgA1C , Office 7.3 % (Abnormal) Range: 4.6 - 7.1 :09 B12 518 pg/mL (Normal) Range: 254-1320 Comments: There is a low frequency possibility that high titers ofintrinsic blocking antibodies may not be completely inactivated during the reaction pretreatment stepof this testing method. If test results are i n conflictwith the clinical diagnosis, patient should be testedfor the presence of intrinsic factor blocking antibodies. 84-Rvk-247113:09 CBCMD MICRO RARE (Normal) ANISO RARE (Normal) RBCM N CHROM {NORMAL} (Normal) PE ADEQUATE (Normal) EOS 1 % (Normal) Range: 0-5 MON 13 % (Abnormal) Range: 0-10 LYMPH 21 % (Normal) Range: 19-41 BAND 6 % (Abnormal) Range: 0-5 PMN 59 % (Normal) Range: 47-70 GAURAV 100 (Normal) ANC 4.9 3/uL (Normal) Range: 2.0-7.7 PLT 239 K/mm3 (Normal) Range: 150-450 RDW 15.5 % (Abnormal) Range: 11.6-14.6 MCHC 33.4 g/dL (Normal) Range: 32-36 MCH 25.7 pg (Abnormal) Range: 27.0-32.0 MCV 77.1 fL (Abnormal) Range: 81-99 HCT 34.3 % (Abnormal) Range: 37-47 HGB 11.4 g/dL (Abnormal) Range: 12.0-16.0 RBC 4.45 {M/mm3} (Normal) Range: 4.2-5.4 WBC 6.9 K/mm3 (Normal) Range: 4.4-11.0 :09 CMP GAP 9 (Normal) Range: 5-15 CO2 30.0 mmol/L (Normal) Range: 21.0-32.0 CL 100 mmol/L (Normal) Range: 98-107 K 4.2 mmol/L (Normal) Range: 3.5-5.1 NA 139 mmol/L (Normal) Range: 136-145 BIT 0.40 mg/dL (Normal) Range: 0.00-1.00 ALT 13 U/L (Normal) Range: 12-78 ALK 72 U/L (Normal) Range: 50-136 AST 12 U/L (Abnormal) Range: 15-37 CA 8.7 mg/dL (Normal) Range: 8.5-10.1 AG 1.0 {RATIO} (Normal) Range: 0.9-2.4 GLOB 3.5 g/dL (Normal) Range: 2.7-4.2 ALB 3.5 g/dL (Normal) Range: 3.4-5.0 TPROT 7.0 g/dL (Normal) Range: 6.4-8.2 BC 15.7 {RATIO} (Normal) Range: 10-20 GFRAA 107 mL/min (Normal) GFR 88 mL/min (Normal) CREAT 0.7 mg/dL (Normal) Range: 0.6-1.0 BUN 11 mg/dL (Normal) Range: 7-18 GLU 151 mg/dL (Abnormal) Range: 70-110 Comments: Fasting Glucose result greater than or equal to 126 mg/dL suggests DIABETES MELLITUS per A.D.A. criteria. :09 MIACRE tMICROCREAT 70.2 {mg/g_CRE} (Abnormal) MIALB 76.8 mg/L (Normal) CREU 109.3 mg/dL (Normal) 02-Ogn-849768:09 VITD 23.9 ng/mL (Abnormal) Comments: appt 05-14-11 Range: 30.0-100.0 Comments: Vitamin D deficiency has been defined by the [place] ofMedicine and an Endocrine Society practice guideline as alevel of serum 25-OH vitamin D less than 20 ng/mL (1,2).The Endocrine Society went on to further define vitamin Dinsufficiency as a level between 21 and 29 ng/mL (2).1. IOM ([place] of Medicine). 2010. Dietary reference intakes for calcium and D. [place]: The National Academies Press.2. Bobo MF, Estrellita STOCKTON, Maddi CALIX, et al. Evaluation, treatment, and prevention of vitamin D deficiency: an Endocrine Society clinical practice guideline. JCEM. 2010; 96(7): 1911-30.Performed at: [address] [id number] Director: Charisma Hamilton MD, Phone: [phone] 8-Sbk-761739:21 CHEST WITHOUT CONTRAST Radiology Report See Note (Normal) Comments: PROCEDURE: CT CHEST WITHOUT CONTRAST REASON FOR EXAM: Female, 70 years old. Pulmonary nodule. Follow-up TECHNIQUE: High resolution transaxial imaging was performed without theadminis tration of i ntravenous contrast material. Multiplanar coronal andsagittal images were reformatted. COMPARISON: May 18, 2008 FINDINGS: 4-mm diameter nodule is identified in the right upper lung posteriorly onima ge 40. There multiple to 3 mm diameter nodules identified throughoutthe remaining right lung. The largest nodule is identified on image 81just above the diaphragm. This nodule measures 6 mm in diamet er and isstable from prior exam. 5-mm diameter nodule is identified in the rightlung base anteriorly. This nodule has slightly increased in size fromprior exam. On the left, there are multiple small p ulmonary nodules demonstrated. Onimage 44, 6-mm diameter nodule is identified. This appears stable.Multiple nodules in the left lung base are identified. Nodule just abovethe diaphragm posteriorly on image 89, measures 8 mm in diameter. Thisnodule has increased slightly in size from prior exam. There is no large pleural effusion or evidence of pneumothorax. Normal heart and pericardium. There are calcifications of the coronaryarteries. Sternal cerclage wires are present from a prior sternotomy. 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 Normal mediastinum. Normal hilar regions. Normal unenhanced pulmonaryarteries. Normal unenhanced thoracic aorta and visualized great vessels. Normal osseous structures. There is limited visualization of the liver, spleen , pancreas, adrenalglands, and abdominal aorta without a demonstrated abnormality. IMPRESSION:Multiple pulmonary nodules are scattered throughout each lung with asimilar number when compared to prior st udy. A single nodule in each lung base noted on prior study has increasedslightly in size from prior exam. The largest nodule in the left lungbasemeasures 8 mm in diameter. Repeat noncontrast CT scan of the chest and 4months is recommended to reevaluate the basilar nodules. 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 To consult with a radiologist regarding this report, please jyoti l our [id number] line @ Dictated on 02/15/11 1126 by Shirin Alarcon DOranscribed on 02/15/11 1733 by ITS IMPORTSign by Emery Alarcon DO on 02/15/11 1734 Sign by: Emery Alarcon DO 6-Yic-367922:30 HgA1C , Office (00314) HgA1C , Office 7.4 % (Abnormal) Range: 4.6 - 7.1 6-Ams-047066:30 Blood Glucose , Office (51907) Blood Glucose , Office 153 (Normal) 6-Zpr-937175:07 CHEST, PA AND LATERAL Radiology Report See Note (Normal) Comments: PROCEDURE: X-RAY CHEST REASON FOR EXAM: Female, 69 years old. Cough, asthma. TECHNIQUE: PA and lateral. COMPARISON: None. 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 The lungs are hyper expanded, with flattening of the hemidiaphragms.Moderate interstitial prominence. There is no demonstrated pleuralabnormality. Mild cardiomegaly without apparent decompensation. Normal mediastinum and emil. Mild prominence central pulmonary vesselswithout redistribution to the upper lobes. Tortuous thoracic aorta. Osteopenia; mild anterior wedging T9 may represent a minor compressi onfracture. Normal visualized ribs, clavicles, and shoulders. There is no demonstrated abnormality of the visualized soft tissuestructures of the upper abdomen. IMPRESSION:COPD.Previous median sternoto my.Osteopenia, possible osteoporosis. Dictated on 08/17/101120 by ANNAMARIE WOODWARD MDTranscribed on 08/17/102122 by ITS IMPORTSign by ANNAMARIE WOODWARD MD on 08/17/102122 Sign by: ANNAMARIE WOODWARD MD :01 HgA1C , Office (35064) HgA1C , Office 7.9 % (Abnormal) Range: 4.6 - 7.1 :01 Blood Glucose , Office (25422) Blood Glucose , Office 133 (Normal) :52 CBCD,SMEAR DIFF RED CELL MORPH SeeNote {NORMAL} (Normal) Comments: Result: NORM C+C EOS 4 % (Normal) Range: 0-5 LYMPH 24 % (Normal) Range: 19-41 MONOCYTE 7 % (Normal) Range: 0-10 PLT EST SeeNote (Normal) Comments: Result: ADEQUATE SEGS 65 % (Normal) Range: 47-70 ABSOLUTE NEUT 4.5 3/uL (Normal) Range: 2.0-7.7 CELLS COUNTED 100 (Normal) PLT 257 K/mm3 (Normal) Range: 150-450 MCH 27.3 pg (Normal) Range: 27.0-32.0 MCHC 33.4 g/dL (Normal) Range: 32-36 RDW 14.5 % (Normal) Range: 11.6-14.6 HCT 35.3 % (Abnormal) Range: 37-47 HGB 11.8 g/dL (Abnormal) Range: 12.0-16.0 MCV 81.6 fL (Normal) Range: 81-99 RBC 4.32 {M/mm3} (Normal) Range: 4.2-5.4 WBC 6.6 K/mm3 (Normal) Range: 4.4-11.0 :52 COMP METABOLIC Comments: appt 08/03/10 CL 101 mmol/L (Normal) Range: 98-107 CO2 27.0 mmol/L (Normal) Range: 21.0-32.0 GAP 9 (Normal) Range: 5-15 K 4.5 mmol/L (Normal) Range: 3.5-5.1 NA 137 mmol/L (Normal) Range: 136-145 T BILI 0.40 mg/dL (Normal) Range: 0.00-1.00 ALT 16 U/L (Normal) Range: 12-78 ALK P 41 U/L (Abnormal) Range: 50-136 AST 6 U/L (Abnormal) Range: 15-37 A/G 1.1 {RATIO} (Normal) Range: 0.9-2.4 ALB 3.7 g/dL (Normal) Range: 3.4-5.0 CA 9.5 mg/dL (Normal) Range: 8.5-10.1 GLOB 3.5 g/dL (Normal) Range: 2.7-4.2 BUN/CRE 20.0 {RATIO} (Normal) Range: 10-20 EST GFR - AA 70 mL/min (Normal) T PROT 7.2 g/dL (Normal) Range: 6.4-8.2 EST GFR 58 mL/min (Abnormal) CREAT,SERUM 1.0 mg/dL (Normal) Range: 0.6-1.0 BUN 20 mg/dL (Abnormal) Range: 7-18 GLU 160 mg/dL (Abnormal) Range: 70-110 Comments: Fasting Glucose result greater than or equal to 126 mg/dL suggests DIABETES MELLITUS per A.D.A. criteria. :52 HGB A1C 8.1 % (Abnormal) Range: 4.0-6.3 Comments: The methodology of Hgb A1C has changed to [place] significant changes in patient results are expected. The reference range remains the same. :52 LIPID VLDL 67 mg/dL (Abnormal) Range: 5-40 HDL 21 mg/dL (Abnormal) Comments: Reference Range HDL <40 mg/dL Low HDL Cholesterol HDL >or= 60 mg/dL High HDL Cholesterol LDL 88 mg/dL (Normal) Range: 0-130 TRIG 337 mg/dL (Abnormal) Comments: Serum Triglycerides Reference Interval Normal <150 mg/dL Borderline high 150 - 199 mg/dL High 200 - 499 mg/dL Very High > or = 500 mg/dL CHOL 176 mg/dL (Normal) Comments: <200 mg/dL Desirable 200-240 mg/dL Borderline >240 mg/dL High Risk :52 MICROALB:CRE UR MALB:CREAT 9.2 {mg/g_CRE} (Normal) MICROALBUMIN,UR 9.9 mg/L (Normal) UR CREAT 107.1 mg/dL (Normal) :52 VIT D,25 21064 19.0 ng/mL (Abnormal) Range: 32.0-100.0 Comments: Recent studies consider the lower limit of 32.0 ng/mL to helena threshold for optimal health.Sunday BETTENCOURT. J Nutr. 2004;135(2):317-22.Performed at: [address] [id number] Director: Charisma Hamilton MD, Phone: [phone] :[phone] VITAMIN B12 447 pg/mL (Normal) Range: 254-1320 Comments: There is a low frequency possibility that high titers ofintrinsic blocking antibodies may not be completely inactivated during the reaction pretreatment stepof this testing method. If test results are i n conflictwith the clinical diagnosis, patient should be testedfor the presence of intrinsic factor blocking antibodies. :02 ROSA [facility] CAD Radiology Report See Note (Normal) Comments: MAMMOGRAPHY - BILATERAL SCREENING INDICATION:Female, 69 years old. Routine annual screening examination. PERTINENT HISTORY:Non-contributory. TECHNIQUE:Digital examination. Mediolateral oblique (MLO) a nd craniocaudad (CC)views of both breasts were obtained. CAD was performed on this study.Small metal markers were placed on moles on both sides. COMPARISON:September 30, 2007. FINDINGS:The breast composit ion is heterogeneously dense.There are scattered areas of asymmetric density present bilaterally.Thereare scattered benign appearing calcifications.There are no new masses or suspicious microcalcificati ons.No other significant abnormalities are identified. IMPRESSION:Normal bilateral screening mammogram. Yearly follow-up recommended. ASSESSMENT CATEGORY:BIRADS Category 2: Benign finding(s). A lette r regarding these resultswill be sent to the patient by the facility within 30 days. Approximately 10% of breast cancers are not detected by mammography. Anormal mammogram should not delay biopsy of a clinically suspiciousabnormality. Dictated on 04/04/10 1033 by KEYA TREJOTranscribed on 04/05/10 0304 by ITS IMPORTSign by KEYA TREJO on 04/05/10 0305 Sign by: KEYA TREJO 13-Zaq-932909:02 DEXA BONE DENSITY STUDY (HP) Radiology Report See Note (Normal) Comments: CLINICAL:Female, 69 years old. The patient is postmenopausal. EXAMINATION:DUAL ENERGY X-RAY ABSORPTIOMETRY / DEXA. TECHNIQUE:Bone Mineral Density (BMD) measurements of lumbar spine and bila teralhipswer e obtained using a [employer] scanner.. COMPARISON:Comparison is made with prior examination dated September 30, 2007. FINDINGS: Lumbar Spine (L1-L4): g/cm2 (1.048) / T-score (-1.1) / Z- score (-0.4)Left Femur Total: g/cm2 (0.975) / T-score (-0.3 .) / Z-score (0.5)Right Femur Total: g/cm2 (0.952) / T-score (-0.4) / Z-score (0.3) Since prior examination, there has been a decrea se of 4.6% in the bonedensity . IMPRESSION:The patient is considered osteopenic, as outlined above, according toWorldHealth Organization (WHO) criteria. Fracture risk is moderate. Reference Information :The T-score is the number of standard deviations above or below thestandard which is normal for young adults at their peak bone mineraldensity. The World Health Organization (WHO) interprets the T-scor es asfollows: Above -1 Normal bone densityBetween -1 and -2.5 OsteopeniaEqual to / or below -2.5 Osteoporosis As a practical clinical guideline, osteopenia may be graded as follows:Mild -1 through -1.5Moderate -1.6 through -2.0Severe -2.1 through -2.4 The Z-score is the number of standard deviations above or below age- matchedcontrols. A Z-score of less than -1.5 would be considered abnormal. References:1. NIH Osteoporosis and Related Bone Diseases http://www.osteo.org2. International Society for Clinical Densitometry http://www.iscd.org3. National Osteoporosis Found ation http://www.nof.org Dictated on 04/04/10 1014 by Rosalia Babcockranscribed on 04/04/10 1137 by ITS IMPORTSign by John Babcock on 04/04/10 1138 Sign by: John Babcock :28 HgA1C , Office (95064) HgA1C , Office 8.2 % (Abnormal) Range: 4.6 - 7.1 :28 Blood Glucose , Office (45260) Blood Glucose , Office 205 (Normal) :27 CBCD,SMEAR DIFF HYPOCHROMASIA 1+ (Normal) ABSOLUTE NEUT 3.8 3/uL (Normal) Range: 2.0-7.7 CELLS COUNTED 100 (Normal) EOS 1 % (Normal) Range: 0-5 LYMPH 32 % (Normal) Range: 19-41 MONOCYTE 4 % (Normal) Range: 0-10 PLT 262 K/mm3 (Normal) Range: 150-450 PLT EST SeeNote (Normal) Comments: Result: ADEQUATE RED CELL MORPH N CYTIC {NORMAL} (Normal) SEGS 63 % (Normal) Range: 47-70 HCT 34.3 % (Abnormal) Range: 37-47 HGB 11.6 g/dL (Abnormal) Range: 12.0-16.0 MCH 27.4 pg (Normal) Range: 27.0-32.0 MCHC 33.7 g/dL (Normal) Range: 32-36 MCV 81.4 fL (Normal) Range: 81-99 RBC 4.22 {M/mm3} (Normal) Range: 4.2-5.4 RDW 14.8 % (Abnormal) Range: 11.6-14.6 WBC 5.9 K/mm3 (Normal) Range: 4.4-11.0 :27 COMP METABOLIC CO2 28.0 mmol/L (Normal) Range: 21.0-32.0 GAP 6 (Normal) Range: 5-15 A/G 1.0 {RATIO} (Normal) Range: 0.9-2.4 ALB 3.6 g/dL (Normal) Range: 3.4-5.0 ALK P 48 U/L (Abnormal) Range: 50-136 ALT 12 U/L (Normal) Range: 12-78 AST 12 U/L (Abnormal) Range: 15-37 BUN/CRE 23.8 {RATIO} (Abnormal) Range: 10-20 CA 8.9 mg/dL (Normal) Range: 8.5-10.1 CL 102 mmol/L (Normal) Range: 98-107 GLOB 3.6 g/dL (Normal) Range: 2.7-4.2 K 4.3 mmol/L (Normal) Range: 3.5-5.1 NA 136 mmol/L (Normal) Range: 136-145 T BILI 0.30 mg/dL (Normal) Range: 0.00-1.00 T PROT 7.2 g/dL (Normal) Range: 6.4-8.2 BUN 19 mg/dL (Abnormal) Range: 7-18 CREAT,SERUM 0.8 mg/dL (Normal) Range: 0.6-1.0 EST GFR 76 mL/min (Normal) EST GFR - AA 92 mL/min (Normal) GLU 175 mg/dL (Abnormal) Range: 70-110 Comments: Fasting Glucose result greater than or equal to 126 mg/dLsuggests DIABETES MELLITUS per A.D.A. criteria. :27 LIPID CHOL 169 mg/dL (Normal) Comments: <200 mg/dL Yjktirecy302-566 mg/dL Borderline>240 mg/dL High Risk HDL 24 mg/dL (Abnormal) Comments: Reference RangeHDL <40 mg/dL Low HDL CholesterolHDL >or= 60 mg/dL High HDL Cholesterol LDL 87 mg/dL (Normal) Range: 0-130 TRIG 288 mg/dL (Abnormal) Comments: Serum Triglycerides Reference IntervalNormal <150 mg/dLBorderline high 150 - 199 mg/dLHigh 200 - 499 mg/ dLVery High > or = 500 mg/dL VLDL 58 mg/dL (Abnormal) Range: 5-40 :27 ROUTINE UA LEUK ESTERASE TRACE (Abnormal) NITRITE UR SeeNote (Normal) Comments: Result: NEGATIVE OCCULT BLOOD-UR SeeNote (Normal) Comments: Result: NEGATIVE pH UR 6.0 (Normal) Range: 5.0-8.0 PROT DIPSTX SeeNote (Normal) Comments: Result: NEGATIVE UROBILI 0.2 EU/dl (Normal) Range: 0.2 - 1.0 BILIRUBIN URINE SeeNote (Normal) Comments: Result: NEGATIVE CLARITY CLEAR (Normal) COLOR YELLOW (Normal) GLUCOSE, UR SeeNote (Normal) Comments: Result: NEGATIVE KETONE UR SeeNote mg/dL (Normal) Comments: Result: NEGATIVE SP.GR. DIPSTX 1.025 (Normal) Range: 1.002-1.030 : TSH 1.18 {uIU/mL} (Normal) Range: 0.358-3.74 27 : VITAMIN B12 338 pg/mL (Normal) Range: 254-1320 Comments: There is a low frequency possibility that high titers ofintrinsic blocking antibodies may not be completelyinactivated during the reaction pretreatment stepof this testing method. If test results are in conflictwith the clinical diagnosis, patient should be testedfor the presence of intrinsic factor blocking antibodies. 3-Tyq-927054:47 CHEST WITHOUT CONTRAST Radiology Report See Note (Normal) Comments: Exam Number: [id number] CT SCAN OF THE THORAX Multiple axial tomographic images were obtained from the thoracicinlet down to the adrenal glands without intravenous contrastadministration. Sagittal and c oronal reconstructions were obtained aswell. Comparison is made with the prior study dated December 05, 2008. HISTORYThis is a 68-year-old female patient with history of followup of thelung nodule. FIND INGSFocal calcification is seen along the inferior aspect of the left lobeof the thyroid. This is unchanged. 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 No significant hilar or mediastinal lymphadenopathy is seen.The axillary regions are unremarkable. There is no evidence ofpleural effusion. There is evidence of hyperinflation and changescompatible with chronic obst ructive pulmonary disease. Once again,several sub cm nodular densities are seen throughout the lungs. Theseare unchanged. No new mass lesion is seen. The adrenal glands are unremarkable. IMPRESSIONTh e nodular densities are once again seen throughout the lungs. Theseare unchanged. A 6-month followup is suggested. The remainder of theexamination is unchanged as well. Reported By: JOHN BABCOCK 33-Omo-472207:27 VITAMIN B-12 (CYANOCOBALAMIN) Comments: PATIENT NOT FASTINGPERFORMED BY: [facility] [id number] RoadDublin [place] [id number] ([id number]) Vitamin B12 338 pg/mL (Normal) Range: 211-946 Comments: Please note reference interval change 60-Zal-489927:27 Vitamin D Hydroxy (24450) Comments: PATIENT NOT FASTINGPERFORMED BY: [facility] [id number] RoadDublin [place] [id number] Vitamin D, 25-Hydroxy 17.2 ng/mL (Abnormal) Range: 32.0-100.0 Comments: Recent studies consider the lower limit of 32.0 ng/mL to be athreshold for optimal health.Sunday [place]. J Nutr. 2004;135(2):317-22. 58-Qmq-751751:27 CBC WITH MANUAL DIFF Comments: PATIENT NOT FASTINGPERFORMED BY: [facility] Pokmuh37[address] Ryan RoadDublin [place] [id number] Information: [id number] ([id number]) Baso (Absolute) 0.0 {x10E3/uL} (Normal) Range: 0.0-0.2 Basos 0 % (Normal) Range: 0-3 Eos (Absolute) 0.1 {x10E3/uL} (Normal) Range: 0.0-0.4 Lymphs (Absolute) 1.7 {x10E3/uL} (Normal) Range: 0.7-4.5 Monocytes(Absolute) 0.7 {x10E3/uL} (Normal) Range: 0.1-1.0 Neutrophils (Absolute) 4.9 {x10E3/uL} (Normal) Range: 1.8-7.8 Eos 1 % (Normal) Range: 0-7 Lymphs 23 % (Normal) Range: 14-46 Monocytes 9 % (Normal) Range: 4-13 Neutrophils 67 % (Normal) Range: 40-74 Platelets 269 {x10E3/uL} (Normal) Range: 140-415 RDW 14.4 % (Normal) Range: 11.7-15.0 Hematocrit 33.8 % (Abnormal) Range: 34.0-44.0 MCH 27.5 pg (Normal) Range: 27.0-34.0 MCHC 33.8 g/dL (Normal) Range: 32.0-36.0 MCV 82 fL (Normal) Range: 80-98 Hemoglobin 11.4 g/dL (Abnormal) Range: 11.5-15.0 RBC 4.15 {x10E6/uL} (Normal) Range: 3.80-5.10 WBC 7.3 {x10E3/uL} (Normal) Range: 4.0-10.5 58-Gjl-132367:27 METABOLIC PANEL, COMPREHENSIVE Comments: PATIENT NOT FASTINGPERFORMED BY: [facility] HospitalZwttvh[facility] [id number] ([id number]) ALT (SGPT) 7 [iU]/L (Normal) Range: 0-40 A/G Ratio 1.8 (Normal) Range: 1.1-2.5 Albumin, Serum 4.4 g/dL (Normal) Range: 3.6-4.8 Alkaline Phosphatase, S 54 [iU]/L (Normal) Range: 25-165 AST (SGOT) 10 [iU]/L (Normal) Range: 0-40 Bilirubin, Total 0.2 mg/dL (Normal) Range: 0.0-1.2 Comments: Please note reference interval change Globulin, Total 2.4 g/dL (Normal) Range: 1.5-4.5 Calcium, Serum 10.1 mg/dL (Normal) Range: 8.6-10.2 Carbon Dioxide, Total 24 mmol/L (Normal) Range: 20-32 Protein, Total, Serum 6.8 g/dL (Normal) Range: 6.0-8.5 BUN/Creatinine Ratio 18 (Normal) Range: 8-27 Chloride, Serum 99 mmol/L (Normal) Range: 97-108 eGFR >59 mL/min/1.73 (Normal) eGFR AfricanAmerican >59 mL/min/1.73 Comments: Note: Persistent reduction for 3 months or more in an eGFR<60 mL/min/1.73 m2 defines CKD. Patients with eGFR values>/=60 mL/min/1.73 m2 may also have CKD if evidence of persistentproteinuria is (Normal) present. Additional information may be found [email or web address]. Potassium, Serum 4.4 mmol/L (Normal) Range: 3.5-5.2 Sodium, Serum 136 mmol/L (Normal) Range: 135-145 BUN 15 mg/dL (Normal) Range: 5-26 Creatinine, Serum 0.85 mg/dL (Normal) Range: 0.57-1.00 Glucose, Serum 120 mg/dL (Abnormal) Range: 65-99 99-Fxa-521749:38 Blood Glucose , Office (07471) Blood Glucose , Office 133 (Normal) :57 LIPID VLDL 54 mg/dL (Abnormal) Range: 5-40 HDL 27 mg/dL (Abnormal) Comments: Reference RangeHDL <40 mg/dL Low HDL CholesterolHDL >or= 60 mg/dL High HDL Cholesterol LDL 105 mg/dL (Normal) Range: 0-130 TRIG 272 mg/dL (Abnormal) Comments: Serum Triglycerides Reference IntervalNormal <150 mg/dLBorderline high 150 - 199 mg/dLHigh 200 - 499 mg/ dLVery High > or = 500 mg/dL CHOL 186 mg/dL (Normal) Comments: <200 mg/dL Wuyfqkpus618-351 mg/dL Borderline>240 mg/dL High Risk :57 LIVER ALT 9 U/L (Abnormal) Range: 12-78 D BILI 0.10 mg/dL (Normal) Range: 0.00-0.30 T BILI 0.20 mg/dL (Normal) Range: 0.00-1.00 ALB 3.7 g/dL (Normal) Range: 3.4-5.0 ALK P 51 U/L (Normal) Range: 50-136 AST 6 U/L (Abnormal) Range: 15-37 T PROT 7.3 g/dL (Normal) Range: 6.4-8.2 60-Hjp-222296:17 KNEE,4 OR MORE VIEWS (MT) Radiology Report See Note (Normal) Comments: Exam Number: [id number] CLINICAL:Medial pain X-RAY EXAMINATION RIGHT KNEE TECHNIQUE: Five views COMPARISON:June 15, 2007.. FINDINGS: There is generalized osteopenia. Medial joint line Spurs are identified . There is no fracture or dislocation. There are very small retropatellar Spurs. There is no effusion. There's no soft tissue swelling. IMPRESSION:Osteopenia. Mild degenerative arthritis. Reported By: STEPHEN LUNDBERG M.D. :46 CHEST WITHOUT CONTRAST Radiology Report See Note (Normal) Comments: Exam Number: [id number] NONCONTRAST CHEST CT Comparison is made with the previous chest CTs of May 18, 2008, andApril 14, 2007. There are multiple small and rounded nodules throughout the lungsbilatera lly, but more numerous on the left. These all appear stablesince both of the previous exams. No new nodules, infiltrates, orother new pulmonary abnormalities are depicted. No pleuralabnormalities are displayed. Lack of contrast somewhat limits her assessment, but no new mediastinal or hilar abnormalities aredemonstrated. The calcified nodule in the left lobe of the thyroidand vascular anomaly in the superior mediastinum (double aortic arch)are again seen. There is evidence of a previous sternotomy that isunaltered. No abnormalities are depicted in the chest wall or smallportions of upper abdo peggy organs included in these noncontrastimages. IMPRESSION Multiple small rounded noncalcified nodules, stable since April and consistent with noncalcified granulomata. No new abnormalities. Reported By: VENU SOTO M.D. C difficile Toxins Negative (Normal) Comments: PERFORMED BY: [facility] [id number] :51 A+B, EIA :51 Ova + Parasite Exam Comments: PERFORMED BY: [facility] [id number] Ova + Parasite Exam Final report (Normal) Comments: These results were obtained using wet preparation(s) and trichromestained smear. This test does not include testing for Cryptosporidiumparvum, Cyclospora, or Microsporidia. Result 1 NOCP (Normal) Comments: No ova, cysts, or parasites seen. :51 Stool Culture Comments: Clinical Information: SRC:ST PERFORMED BY: [facility] [facility] [id number] Campylobacter Culture Final report (Normal) E coli Shiga Toxin EIA Negative (Normal) Result 1 NCI (Normal) Comments: No Campylobacter species isolated. Result 1 NSS (Normal) Comments: No Salmonella or Shigella recovered. Salmonella/Shigella Screen Final report (Normal) 41-Gyx-[id number]:51 White Blood Cells (WBC), Comments: PERFORMED BY: [facility] [id number] Stool Result 1 NWBC (Normal) Comments: No white blood cells seen. White Blood Cells (WBC), Final report (Normal) Comments: Reference Range: None Seen Stool 82-Arm-463050:52 CBC With Differential/Platelet Comments: PATIENT WAS FASTINGPERFORMED BY: [facility] [id number] Baso (Absolute) 0.0 {x10E3/uL} (Normal) Range: 0.0-0.2 Basos 0 % (Normal) Range: 0-3 Eos 2 % (Normal) Range: 0-7 Eos (Absolute) 0.1 {x10E3/uL} (Normal) Range: 0.0-0.4 Hematocrit 31.5 % (Abnormal) Range: 34.0-44.0 Hemoglobin 10.5 g/dL (Abnormal) Range: 11.5-15.0 Lymphs 21 % (Normal) Range: 14-46 Lymphs (Absolute) 1.1 {x10E3/uL} (Normal) Range: 0.7-4.5 MCH 27.3 pg (Normal) Range: 27.0-34.0 MCHC 33.5 g/dL (Normal) Range: 32.0-36.0 MCV 81 fL (Normal) Range: 80-98 Monocytes 7 % (Normal) Range: 4-13 Monocytes(Absolute) 0.4 {x10E3/uL} (Normal) Range: 0.1-1.0 Neutrophils 70 % (Normal) Range: 40-74 Neutrophils (Absolute) 3.6 {x10E3/uL} (Normal) Range: 1.8-7.8 Platelets 348 {x10E3/uL} (Normal) Range: 140-415 RBC 3.86 {x10E6/uL} (Normal) Range: 3.80-5.10 RDW 15.5 % (Abnormal) Range: 11.7-15.0 WBC 5.2 {x10E3/uL} (Normal) Range: 4.0-10.5 :52 Comp. Metabolic Panel (14) Comments: PATIENT WAS FASTINGPERFORMED BY: [employer] [facility] [id number] A/G Ratio 1.6 (Normal) Range: 1.1-2.5 Albumin, Serum 4.0 g/dL (Normal) Range: 3.6-4.8 Alkaline Phosphatase, S 49 [iU]/L (Normal) Range: 25-165 ALT (SGPT) 5 [iU]/L (Normal) Range: 0-40 AST (SGOT) 17 [iU]/L (Normal) Range: 0-40 Bilirubin, Total 0.2 mg/dL (Normal) Range: 0.1-1.2 BUN/Creatinine Ratio 12 (Normal) Range: 8-27 Calcium, Serum 9.8 mg/dL (Normal) Range: 8.5-10.6 Carbon Dioxide, Total 25 mmol/L (Normal) Range: 20-32 Chloride, Serum 102 mmol/L (Normal) Range: 97-108 eGFR AfricanAmerican >59 mL/min/1.73 Comments: Note: Persistent reduction for 3 months or more in an eGFR<60 mL/min/1.73 m2 defines CKD. Patients with eGFR values>/=60 mL/min/1.73 m2 may also have CKD if evidence of persistentproteinuria is (Normal) present. Additional information may be found [email or web address]. Globulin, Total 2.5 g/dL (Normal) Range: 1.5-4.5 Potassium, Serum 4.2 mmol/L (Normal) Range: 3.5-5.2 Protein, Total, Serum 6.5 g/dL (Normal) Range: 6.0-8.5 Sodium, Serum 140 mmol/L (Normal) Range: 135-145 BUN 9 mg/dL (Normal) Range: 5-26 Creatinine, Serum 0.73 mg/dL (Normal) Range: 0.57-1.00 eGFR >59 mL/min/1.73 (Normal) Glucose, Serum 145 mg/dL (Abnormal) Range: 65-99 :52 Lipid Panel With LDL/HDL Comments: PATIENT WAS FASTINGPERFORMED BY: [employer]6[address] [facility] [id number] Ratio Cholesterol, Total 135 mg/dL (Normal) Range: 100-199 HDL Cholesterol 25 mg/dL (Abnormal) Comments: According to ATP-III Guidelines, HDL-C >59 mg/dL is considered anegative risk factor for CHD. LDL Cholesterol Calc 44 mg/dL (Normal) Range: 0-99 LDL/HDL Ratio 1.8 {ratio_units} Range: 0.0-3.2 (Normal) Triglycerides 331 mg/dL Range: 0-149 (Abnormal) VLDL Cholesterol Jyoti 66 mg/dL (Abnormal) Range: 5-40 Vitamin B12 397 pg/mL (Normal) Comments: PATIENT WAS FASTINGPERFORMED BY: [employer] Lclxdr0436 [facility] [id number] 0:52 Range: 211-911 Vitamin D, 25-Hydroxy 13.6 ng/mL Comments: PATIENT WAS FASTINGPERFORMED BY: [facility] MedicalDouglas V[place] 1935970 [facility] [id number] 0:52 (Abnormal) Range: 32.0-100.0 Comments: Recent studies consider the lower limit of 32.0 ng/mL to be athreshold for optimal health.Sunday BETTENCOURT. J Nutr. 2004;135(2):317-22. :32 HgA1C , Office (84085) HgA1C , Office 6.9 % (Normal) Range: 4.6 - 7.1 :32 Blood Glucose , Office (56044) Blood Glucose , Office 179 (Normal) 57-Clv-902019:25 ABDOMEN LIMITED US () Radiology Report See Note (Normal) Comments: Exam Number: [id number] CLINICAL:Abdominal pain. LIMITED ABDOMINAL ULTRASOUND COMPARISON:None. FINDINGS: Images and technologist work sheet are submitted for interpretation. The liver is enlarged and dif fusely echogenic, compatible with diffuse fatty infiltration. No focal hepatic masses are seen. There are multiple tiny shadowing calculi in the gallbladder. No gallbladder wall thickening or perichol ecystic fluid. Normal caliber of the common bile duct, measuring 2 mm. Normal intrahepatic ducts with no intrahepatic biliary ductal dilatation. Normal pancreas without focal or diffuse enlargement, an d there are no cysts or calcifications. Normal visualized pancreatic duct. The pancreatic tail is not well seen. Normal right kidney size, contour, and echogenicity, measuring 12.1 cm in length. Rina l right renal cortex with no masses or cysts. Normal intrarenal collecting system with no renal calculi or hydronephrosis. IMPRESSION:Hepatomegaly with diffuse fatty infiltration of the liver. No bili thelma dilatation. Cholelithiasis without evidence of cholecystitis. Reported By: HALIMA TURNER M.D. 8-Zlm-331535:35 Urinalysis, Office (37448) UA - BILIRUBIN Moderate (Normal) UA - BLOOD Negative (Normal) UA - GLUCOSE Negative (Normal) UA - KETONES Small mg/dL (Normal) UA - LEUKOCYTE ESTERASE Negative (Normal) UA - NITRITE Negative (Normal) UA - PH 5.0 (Normal) UA - PROTEIN 30 mg/dL (Normal) UA - SPECIFIC GRAVITY 1.025 (Normal) URINE UROBILINGN JAMIL TIMED 2 mg/dL (Normal) 15-Sep-20080:00 Comp. Metabolic Panel (14) Comments: PATIENT NOT FASTINGPERFORMED BY: [facility]CoRobert [facility] HospitalZebccf7276 [facility] [id number] A/G Ratio 1.3 (Normal) Range: 1.1-2.5 Albumin, Serum 3.8 g/dL (Normal) Range: 3.6-4.8 Alkaline Phosphatase, S 77 [iU]/L (Normal) Range: 25-165 ALT (SGPT) 6 [iU]/L (Normal) Range: 0-40 AST (SGOT) 13 [iU]/L (Normal) Range: 0-40 Bilirubin, Total 0.4 mg/dL (Normal) Range: 0.1-1.2 BUN 33 mg/dL (Abnormal) Range: 5-26 BUN/Creatinine Ratio 24 (Normal) Range: 8-27 Calcium, Serum 10.4 mg/dL (Normal) Range: 8.5-10.6 Carbon Dioxide, Total 20 mmol/L (Normal) Range: 20-32 Chloride, Serum 96 mmol/L (Abnormal) Range: 97-108 Creatinine, Serum 1.38 mg/dL (Abnormal) Range: 0.57-1.00 eGFR 38 mL/min/1.73 (Abnormal) eGFR AfricanAmerican 46 mL/min/1.73 Comments: Note: Persistent reduction for 3 months or more in an eGFR<60 mL/min/1.73 m2 defines CKD. Patients with eGFR values>/=60 mL/min/1.73 m2 may also have CKD if evidence of persistentproteinur ia is (Abnormal) present. Additional information may be found [email or web address]. Globulin, Total 3.0 g/dL (Normal) Range: 1.5-4.5 Glucose, Serum 154 mg/dL (Abnormal) Range: 65-99 Potassium, Serum 4.3 mmol/L (Normal) Range: 3.5-5.2 Protein, Total, Serum 6.8 g/dL (Normal) Range: 6.0-8.5 Sodium, Serum 132 mmol/L (Abnormal) Range: 135-145 15-Sep-20080:00 Hepatic Function Panel (7) Comments: PATIENT NOT FASTINGPERFORMED BY: LabCoRobert [facility] Johnson University HospitalDjooxa7874 [facility] [id number] Bilirubin, Direct 0.17 mg/dL (Normal) Range: 0.00-0.40 47-Dxl-36819:27 CBCD Comments: ORDERED LIPID,LIVER ALSO BASO% 0.6 % (Normal) Range: 0-1 EO% 2.1 % (Normal) Range: 0-5 HCT 32.8 % (Abnormal) Range: 37-47 HGB 11.0 g/dL (Abnormal) Range: 12.0-16.0 LY% 26.9 % (Normal) Range: 19-41 MCH 27.2 pg (Normal) Range: 27.0-32.0 MCHC 33.5 g/dL (Normal) Range: 32-36 MCV 81.2 fL (Normal) Range: 81-99 MONO% 10.1 % (Abnormal) Range: 0-10 MPV 8.2 fL (Normal) Range: 6.5-12.0 NEUT% 60.3 % (Normal) Range: 47-70 PLT 255 K/mm3 (Normal) Range: 150-450 RBC 4.05 {M/mm3} (Abnormal) Range: 4.2-5.4 RDW 14.4 % (Normal) Range: 11.6-14.6 WBC 5.4 K/mm3 (Normal) Range: 4.4-11.0 33-Mix-89880:27 LIPID Comments: ORDERED LIPID,LIVER ALSO CHOL 144 mg/dL (Normal) Comments: <200 mg/dL Desirable 200-240 mg/dL Borderline >240 mg/dL High Risk HDL 12 mg/dL (Abnormal) Comments: Reference Range HDL <40 mg/dL Low HDL Cholesterol HDL >or= 60 mg/dL High HDL Cholesterol LDL 63 mg/dL (Normal) Range: 0-130 TRIG 346 mg/dL (Abnormal) Comments: Serum Triglycerides Reference Interval Normal <150 mg/dL Borderline high 150 - 199 mg/dL High 200 - 499 mg/dL Very High > or = 500 mg/dL VLDL 69 mg/dL (Abnormal) Range: 5-40 :27 LIVER Comments: ORDERED LIPID,LIVER ALSO ALB 3.7 g/dL (Normal) Range: 3.4-5.0 ALK P 53 U/L (Normal) Range: 50-136 ALT 16 U/L (Abnormal) Range: 30-65 AST 12 U/L (Abnormal) Range: 15-37 D BILI < 0.05 mg/dL (Normal) Range: 0.00-0.30 T BILI 0.30 mg/dL (Normal) Range: 0.00-1.00 T PROT 7.2 g/dL (Normal) Range: 6.4-8.2 :27 VIT D,25 84358 16.4 ng/mL (Abnormal) Comments: ORDERED LIPID,LIVER ALSO Range: 32.0-100.0 Comments: Recent studies consider the lower limit of 32.0 ng/mL to helena threshold for optimal health.Sunday BETTENCOURT. J Nutr. 2004;135(2):317-22.Performed At: [facility] [place], [place] [id number] :27 VITAMIN B12 430 pg/mL (Normal) Comments: ORDERED LIPID,LIVER ALSO Range: 254-1320 60-Acy-083400:01 BRAIN/HEAD W/WO CONTRAST Radiology Report See Note (Normal) Comments: Exam Number: [id number] CT OF THE HEAD WITH AND WITHOUT CONTRAST [id number]-dbyw-jal woman who has had vague symptoms of occasional staringinto space and feeling that a cloud of confusion has come upon he r,occasionally with bright lights flashing with movements of her eyes. Noncontrast and contrast enhanced CT scan of the head. No oldcomparison films. A homogeneously enhancing mass is present at the t ip of the righttemporal lobe in the middle cranial fossa based against the sphenoidbone, forming the anterior limit of the middle cranial fossa. This ismost consistent with a meningioma; however, a lar ge amount ofvasogenic edema is present, which extends throughout the deep whitematter of the temporal lobe, up to the involve the deep white matteras high as the vertex of the parietal lobe. It also fi lls the deepwhite matter of the basal ganglia, involves the right globus pallidus,and extends into the right frontal lobe as far anteriorly as the rightfrontal horn. No other abnormal enhancing foci id entified. Leftward subfalcine herniation is present measuring 14 mm. Thequadrigeminal plate cistern on the right is larger than that on theleft. This indicates leftward shift of the mid brain seconda ry toright-sided uncal herniation. The right posterior cerebral arterystill contains normal enhancement, but it is nearly trapped by thetranstentorial right-sided herniation. The brain attenuation i s otherwise normal. No evidence ofintracranial hemorrhage. The right lateral ventricle is nearlycompletely effaced, with the exception of a portion of the rightfrontal horn. The scalp is unremarkable . A fenestration in the leftfrontal skull is most likely vascular in origin. The skull isotherwise unremarkable. The skull base is normal. The sphenoid boneadjacent to the right middle cranial fossa mass is not thickened. Itis slightly low in attenuation in one focus and may be partiallydemineralized. The orbits and paranasal sinuses are unremarkable on limitedevaluation. IMPRESSION1. 2.1 cm diameter, homogeneously enhancing mass far anteriorly in the right middle cranial fossa, based against the dura - most consistent with a meningioma. 2. However, a large amount of vasogenic edema extends throughout the deep white matter of the right temporal lobe up into the right basal ganglia, posterior aspect of the right frontal lobe, and up into the right parietal lobe. This loida a causes at least 14 mm of leftward subfalcine herniation. Right-sided transtentorial uncal herniation is also present. 3. Findings discussed by phone with Dr. Uriostegui, who is covering for Dr. Melendez, at approximately 1445 hours on June 02, 2008. The patient has been escorted to the Emergency Room, where Dr. Kinney has taken over her care at approximately 1500 hours, June 02, 2008. Reported By: THANH ANNE M.D. :51 CBCD,SMEAR DIFF CELLS COUNTED 100 (Normal) EOS 1 % (Normal) Range: 0-5 HCT 36.3 % (Abnormal) Range: 37-47 HGB 11.9 g/dL (Abnormal) Range: 12.0-16.0 LYMPH 21 % (Normal) Range: 19-41 MCH 27.1 pg (Normal) Range: 27.0-32.0 MCHC 32.9 g/dL (Normal) Range: 32-36 MCV 82.5 fL (Normal) Range: 81-99 MONOCYTE 1 % (Normal) Range: 0-10 PLT 281 K/mm3 (Normal) Range: 150-450 PLT EST SeeNote (Normal) Comments: Result: ADEQUATE RBC 4.40 {M/mm3} (Normal) Range: 4.2-5.4 RDW 14.9 % (Abnormal) Range: 11.6-14.6 RED CELL MORPH SeeNote {NORMAL} (Normal) Comments: Result: NORM C+C SEGS 77 % (Abnormal) Range: 47-70 WBC 7.7 K/mm3 (Normal) Range: 4.4-11.0 :51 COMP METABOLIC A/G 1.1 {RATIO} (Normal) Range: 0.9-2.4 ALB 3.8 g/dL (Normal) Range: 3.4-5.0 ALK P 60 U/L (Normal) Range: 50-136 ALT 25 U/L (Abnormal) Range: 30-65 AST 15 U/L (Normal) Range: 15-37 BUN 15 mg/dL (Normal) Range: 7-18 BUN/CRE 16.7 {RATIO} (Normal) Range: 10-20 CA 9.5 mg/dL (Normal) Range: 8.5-10.1 CL 101 mmol/L (Normal) Range: 98-107 CO2 29.7 mmol/L (Normal) Range: 21.0-32.0 CREAT,SERUM 0.9 mg/dL (Normal) Range: 0.6-1.0 EST GFR 66 mL/min (Normal) EST GFR - AA 80 mL/min (Normal) GAP 5 (Normal) Range: 5-15 GLOB 3.5 g/dL (Normal) Range: 2.7-4.2 GLU 191 mg/dL (Abnormal) Range: 70-110 Comments: Fasting Glucose result greater than or equal to 126 mg/dL suggests DIABETES MELLITUS per A.D.A. criteria. K 3.9 mmol/L (Normal) Range: 3.5-5.1 NA 136 mmol/L (Normal) Range: 136-145 T BILI 0.38 mg/dL (Normal) Range: 0.00-1.00 T PROT 7.3 g/dL (Normal) Range: 6.4-8.2 :51 D BILI 0.06 mg/dL (Normal) Range: 0.00-0.30 :51 VIT D,25 18463 6.3 ng/mL (Abnormal) Range: 32.0-100.0 Comments: Recent studies consider the lower limit of 32.0 ng/mL to helena threshold for optimal health.Sunday BETTENCOURT. J Nutr. 2004;135(2):317-22.Performed At: [address] [id number] :51 VITAMIN B12 301 pg/mL (Normal) Range: 211-911 :43 CHEST WITHOUT CONTRAST Radiology Report See Note (Normal) Comments: Exam Number: [id number] CLINICAL: Nodules CT CHEST WITHOUT CONTRAST COMPARISON:April 14, 2007 TECHNIQUE:High resolution transaxial imaging was performed without the administration of intravenous contrast material. FINDINGS:There are multiple subcentimeter pulmonary nodules, the majority measure in 5 mm in diameter or less. Nodules are stable in size and number since the prior examination. There are no acute pulmonary infiltrates. Normal pleura without pleural thickening, a mass lesion or calcifications. There are no pleural effusions. Normal mediastinum and pulmonary emil without lymphadenopathy. Th ere are has been a median sternotomy. Multiple pericardial clips are present. Cardiac size is within normal limits. There are sparse coronary calcifications. There are no valvular calcifications. 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 There is a small calcified nodule in the left lobe of the thyroid, unchanged from the prior st udy There is no lymphadenopathy of the axillary or supraclavicular lymph nodes. Normal visualized liver, spleen, gallbladder, pancreas and adrenal glands. Normal visualized osseous structures. Normal v isualized chest wall structures. IMPRESSION:Multiple pulmonary nodules, stable in size and number from the previous examination. In the absence of a history of malignancy, these most likely represent noncalcified granulomata. No evidence for acute cardiopulmonary disease Reported By: RIO KAY M.D. 80-Lsa-119906:13 HgA1C , Office (69285) HgA1C , Office 7.5 % (Abnormal) Range: 4.6 - 7.1 07-Xgx-717577:13 Blood Glucose , Office (50469) Blood Glucose , Office 203 (Normal) Antiparietal Cell 2.2 {Units} Comments: PERFORMED BY: [facility] [id number] 0:04 Antibody (Normal) Range: 0.0-20.0 Comments: Negative 0.0 - 20.0 Equivocal 20.1 - 24.9 Positive >24.9 . Parietal Cell Antibodies are found in 90% of patients with pernicious anemia and 30% of first degree relatives with pernicious anemia. 78-Fbm-853007:04 CBC With Differential/Platelet Comments: PERFORMED BY: [employer] [address] [id number] Baso (Absolute) 0.0 {x10E3/uL} Range: 0.0-0.2 (Normal) Basos 0 % (Normal) Range: 0-3 Eos 2 % (Normal) Range: 0-7 Eos (Absolute) 0.1 {x10E3/uL} Range: 0.0-0.4 (Normal) Hematocrit 33.4 % (Abnormal) Range: 34.0-44.0 Hemoglobin 11.4 g/dL (Abnormal) Range: 11.5-15.0 Lymphs 23 % (Normal) Range: 14-46 Lymphs (Absolute) 1.5 {x10E3/uL} Range: 0.7-4.5 (Normal) MCH 28.1 pg (Normal) Range: 27.0-34.0 MCHC 34.3 g/dL (Normal) Range: 32.0-36.0 MCV 82 fL (Normal) Range: 80-98 Monocytes 7 % (Normal) Range: 4-13 Monocytes(Absolute) 0.4 {x10E3/uL} Range: 0.1-1.0 (Normal) Neutrophils 68 % (Normal) Range: 40-74 Neutrophils (Absolute) 4.4 {x10E3/uL} Range: 1.8-7.8 (Normal) Platelets 273 {x10E3/uL} Range: 140-415 (Normal) RBC 4.07 {x10E6/uL} Range: 3.80-5.10 (Normal) RDW 14.4 % (Normal) Range: 11.7-15.0 WBC 6.4 {x10E3/uL} Range: 4.0-10.5 (Normal) Intrinsic Factor Abs, Negative (Normal) Comments: PERFORMED BY: [employer] [address] [id number] 0:04 Serum Vitamin B12 472 pg/mL (Normal) Comments: PERFORMED BY: [employer] [address] [id number] 0:04 Range: 211-911 :32 Fecal Occult Blood , Office (74500) Fecal Occult Blood Negative (Normal) , Office Ferritin, Serum 21 ng/mL (Normal) Comments: PATIENT NOT FASTINGPERFORMED BY: [facility] [id number] :21 Range: 10-291 Folate (Folic >24.0 ng/mL (Normal) Comments: PATIENT NOT FASTINGPERFORMED BY: [facility] [facility] [id number] :21 Acid), Serum Comments: Indeterminate: 3.4 - 5.4 Deficient: <3.4 :21 Iron and TIBC Comments: PATIENT NOT FASTINGPERFORMED BY: [employer] [facility] [id number] Iron Bind.Cap.(TIBC) 377 ug/dL (Normal) Range: 250-450 Iron Saturation 13 % (Abnormal) Range: 15-55 Iron, Serum 49 ug/dL (Normal) Range: 35-155 UIBC 328 ug/dL (Normal) Range: 150-375 LDH 145 [iU]/L (Normal) Comments: PATIENT NOT FASTINGPERFORMED BY: LabCoRobert [facility] Johnson University HospitalJcumjh4027 [facility] [id number] :21 Range: 100-250 Reticulocyte Count 2.1 % (Normal) Comments: PATIENT NOT FASTINGPERFORMED BY: LabCoRobert [facility] Johnson University HospitalPfrvzz3989 [facility] [id number] :21 Range: 0.5-3.0 Vitamin B12 182 pg/mL Comments: PATIENT NOT FASTINGPERFORMED BY: LabCoRobert [facility] Johnson University HospitalEklovj4832 [facility] [id number] :21 (Abnormal) Range: 211-911 :33 HgA1C , Office (02730) Comments: done>Wf. HgA1C , Office 6.8 % (Normal) Range: 4.6 - 7.1 :33 Blood Glucose , Office (30329) Comments: done>Wf. Blood Glucose , Office 150 (Normal) :06 CBCD,SMEAR DIFF BASOPHIL 1 % (Normal) Range: 0-1 CELLS COUNTED 100 (Normal) HCT 32.5 % (Abnormal) Range: 37-47 HGB 10.9 g/dL (Abnormal) Range: 12.0-16.0 HYPOCHROMASIA 1+ (Normal) LYMPH 34 % (Normal) Range: 19-41 MCH 27.1 pg (Normal) Range: 27.0-32.0 MCHC 33.5 g/dL (Normal) Range: 32-36 MCV 80.8 fL (Abnormal) Range: 81-99 MICROCYTES 1+ (Normal) MONOCYTE 1 % (Normal) Range: 0-10 PLT 256 K/mm3 (Normal) Range: 150-450 PLT EST SeeNote (Normal) Comments: Result: ADEQUATE RBC 4.01 {M/mm3} (Abnormal) Range: 4.2-5.4 RDW 14.3 % (Normal) Range: 11.6-14.6 SEGS 64 % (Normal) Range: 47-70 WBC 6.1 K/mm3 (Normal) Range: 4.4-11.0 75-Siz-423843:06 LIPID Comments: SEND A COPY OF THE LIPID AND LIVER RESULTSONLY. JLG CHOL 143 mg/dL (Normal) Comments: <200 mg/dL Desirable 200-240 mg/dL Borderline >240 mg/dL High Risk HDL 28 mg/dL (Abnormal) Comments: Reference Range HDL <40 mg/dL Low HDL Cholesterol HDL >or= 60 mg/dL High HDL Cholesterol LDL 61 mg/dL (Normal) Range: 0-130 TRIG 272 mg/dL (Abnormal) Comments: Serum Triglycerides Reference Interval Normal <150 mg/dL Borderline high 150 - 199 mg/dL High 200 - 499 mg/dL Very High > or = 500 mg/dL VLDL 54 mg/dL (Abnormal) Range: 5-40 [id number] LIVER Comments: SEND A COPY OF THE LIPID AND LIVER RESULTSONLY. JLG ALB 3.6 g/dL (Normal) Range: 3.4-5.0 ALK P 47 U/L (Abnormal) Range: 50-136 ALT 25 U/L (Abnormal) Range: 30-65 AST 14 U/L (Abnormal) Range: 15-37 D BILI 0.06 mg/dL (Normal) Range: 0.00-0.30 T BILI 0.31 mg/dL (Normal) Range: 0.00-1.00 T PROT 6.7 g/dL (Normal) Range: 6.4-8.2 [id number] BILAT SCRN DIGITAL & CAD Radiology Report See Note (Normal) Comments: Exam Number: [id number] MAMMOGRAM, BILATERAL SCREENING DIGITAL AND CAD HISTORYRoutine screening. Full field digital images were obtained in mediolateral oblique andcraniocaudal projections. CAD images w ere reviewed. The current study is compared to the examinations of January 2004 andJanuary 2006. There is moderately dense fibroglandular parenchyma present. There isno skin thickening or retraction, architectural distortion, or clusterof suspicious microcalcifications. There are scattered calcificationsand small areas of asymmetric parenchymal density which have notsignificantly changed. If ther e is no suspicious palpableabnormality, followup mammogram in 1 year is recommended. IMPRESSIONThere is no radiographic evidence of malignancy identified. FINAL ASSESSMENTBenign findings. BIRADS Zee gory 2. A letter regarding these results has been sent to the patient. This interpretation was rendered by a radiologist certified under theMammography Quality Standards Act of 1992 (MQSA). The mammog kailash werealso examined with computer-aided detection software ([employer], [place] Reported By: KEYA TREJO M.D. [id number] DEXA BONE DENSITY STUDY () Radiology Report See Note (Normal) Comments: Exam Number: [id number] BONE DENSITOMETRY HISTORYPostmenopausal. TECHNIQUE Bone densitometry of the lumbar spine and left hip was performed. Thebest criteria for evaluation of osteoporosis is the T- value, whichrepresents the comparison of the patient's bone mass to an expectedpeak bone mass. For most patients, the mean T-value of L1 through L4is used to evaluate the lumbar spine. Based on the [facility] WorldHealth Organization classifications, the hip is evaluated by utilizingthe lower of the T-value of the total hip or the T-value of thefemoral neck. FINDINGSIn this patient, the mean T-value o f L1 through L4 is -0.7, which isnormal. Note is made that the T-value of the L4 vertebral body alonefalls in the range of osteoporosis. The bone mineral density ismeasured at 2.6% greater than in 200 2. Digital lateral view forevaluation of vertebral deformity only demonstrates loss of anteriorheight of T10, T9, and T8. The T-value of the left femoral neck is-1.2, which is in the range of osteopenia . The T-value of the totalleft hip is 0.6, which is normal. Bone mineral density is measured at9.7% less than in 2002. IMPRESSIONBone densitometry of the lumbar spine is within normal limits. Thereis o steopenia of the left hip. Reported By: KEYA TREJO M.D. [id number] HgA1C , Office (07584) HgA1C , Office 6.7 % (Normal) Range: 4.6 - 7.1 [id number]:46 Blood Glucose , Office (27953) Blood Glucose , Office 170 (Normal) :46 COMP METABOLIC A/G 1.1 {RATIO} (Normal) Range: 0.9-2.4 ALB 3.6 g/dL (Normal) Range: 3.4-5.0 ALK P 46 U/L (Abnormal) Range: 50-136 ALT 25 U/L (Abnormal) Range: 30-65 AST 16 U/L (Normal) Range: 15-37 BUN 17 mg/dL (Normal) Range: 7-18 BUN/CRE 18.9 {RATIO} (Normal) Range: 10-20 CA 9.1 mg/dL (Normal) Range: 8.5-10.1 CL 104 mmol/L (Normal) Range: 98-107 CO2 28.0 mmol/L (Normal) Range: 21.0-32.0 CREAT,SERUM 0.9 mg/dL (Normal) Range: 0.6-1.0 GAP 8 (Normal) Range: 5-15 GLOB 3.3 g/dL (Normal) Range: 2.7-4.2 GLU 135 mg/dL (Abnormal) Range: 70-110 Comments: Fasting Glucose result greater than or equal to 126 mg/dL suggests DIABETES MELLITUS per A.D.A. criteria. K 4.0 mmol/L (Normal) Range: 3.5-5.1 NA 140 mmol/L (Normal) Range: 136-145 T BILI 0.29 mg/dL (Normal) Range: 0.00-1.00 T PROT 6.9 g/dL (Normal) Range: 6.4-8.2 :46 MICROALBUMIN,UR 9.4 mg/L (Normal) :46 TSH 0.97 {uIU/mL} (Normal) Range: 0.34-4.82 :24 KNEE,4 OR MORE VIEWS Radiology Report See Note (Normal) Comments: Exam Number: [id number] RIGHT KNEE CLINICAL INFORMATIONKnee pain. Standing AP and lateral views of the right knee were obtained alongwith additional images. There appears to be a small amount of fluidin the suprapatellar bursa. No acute bony abnormality is seen. Thereis some narrowing of the medial joint compartment but the lateraljoint compartment appears fairly well maintained. There appears to be a very small spur from the medial tibial plateau. The patellofemoralarticular appears essentially unremarkable. No destructive bonelesion is seen. 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 Reported By: CHIVO MUÑIZ M.D. :49 CHEST WITHOUT CONTRAST Radiology Report See Note (Normal) Comments: Exam Number: [id number] CT CHEST NONCONTRAST CLINICAL STATEMENTFollow of lung nodules. Helical 2.5-mm sections through the chest were obtained. The previousJu2006 scan was reviewed fo r comparison . There is no pulmonary consolidation or pleural fluid. There aremultiple lung nodules, predominantly in a peripheral distributionwithout calcification and stable since the August 25, 2006 scanmeasuring up to about 5 mm. Soft tissue window views show a doubleaortic arch with the larger component on the right side forming a ringaround the trachea and esophagus. The descending thoracic aorta istortuous and elongated. Mediastinal and hilar lymph nodes are notenlarged. IMPRESSION1. Multiple pulmonary nodules are up to 5 mm diameter involving bothlungs, stable since August 25, 2006. Longer interval fol lowup in abouta year suggested. 2. 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 Reported By: RICHARD CANADA M.D. [id number]:33 HgA1C , Office (97578) HgA1C , Office 6.5 % (Normal) Range: 4.6 - 7.1 :33 Blood Glucose , Office (64143) Blood Glucose , Office 89 (Normal) [id number]-[id number]:34 CBCD,SMEAR DIFF BAND 1 % (Normal) Range: 0-5 CELLS COUNTED 100 (Normal) EOS 1 % (Normal) Range: 0-5 LYMPH 27 % (Normal) Range: 19-41 MCH 27.4 pg (Normal) Range: 27.0-32.0 MCHC 33.4 g/dL (Normal) Range: 32-36 MCV 82.3 fL (Normal) Range: 81-99 MONOCYTE 1 % (Normal) Range: 0-10 PLT 287 K/mm3 (Normal) Range: 150-450 PLT EST SeeNote (Normal) Comments: Result: ADEQUATE RDW 14.4 % (Normal) Range: 11.6-14.6 RED CELL MORPH SeeNote {NORMAL} (Normal) Comments: Result: NORM C+C SEGS 70 % (Normal) Range: 47-70 HCT 34.4 % (Abnormal) Range: 37-47 HGB 11.5 g/dL (Abnormal) Range: 12.0-16.0 RBC 4.18 {M/mm3} (Abnormal) Range: 4.2-5.4 WBC 6.9 K/mm3 (Normal) Range: 4.4-11.0 :34 LIPID CHOL 152 mg/dL (Normal) Comments: <200 mg/dL Desirable 200-240 mg/dL Borderline >240 mg/dL High Risk HDL 29 mg/dL (Abnormal) Comments: Reference Range HDL <40 mg/dL Low HDL Cholesterol HDL >or= 60 mg/dL High HDL Cholesterol LDL 59 mg/dL (Normal) Range: 0-130 TRIG 318 mg/dL (Abnormal) Comments: Serum Triglycerides Reference Interval Normal <150 mg/dL Borderline high 150 - 199 mg/dL High 200 - 499 mg/dL Very High > or = 500 mg/dL VLDL 64 mg/dL (Abnormal) Range: 5-40 :34 LIVER ALB 3.8 g/dL (Normal) Range: 3.4-5.0 ALK P 52 U/L (Normal) Range: 50-136 ALT 28 [iU]/L (Abnormal) Range: 30-65 AST 16 U/L (Normal) Range: 15-37 D BILI 0.05 mg/dL (Normal) Range: 0.00-0.30 T BILI 0.27 mg/dL (Normal) Range: 0.00-1.00 T PROT 6.8 g/dL (Normal) Range: 6.4-8.2 :17 Blood Glucose , Office (12389) Blood Glucose , Office 175 (Normal) :41 CBCD,SMEAR DIFF CELLS COUNTED 100 (Normal) EOS 2 % (Normal) Range: 0-5 HCT 35.0 % (Abnormal) Range: 37-47 HGB 11.7 g/dL (Abnormal) Range: 12.0-16.0 LYMPH 24 % (Normal) Range: 19-41 MCH 28.0 pg (Normal) Range: 27.0-32.0 MCHC 33.5 g/dL (Normal) Range: 32-36 MCV 83.5 fL (Normal) Range: 81-99 MONOCYTE 9 % (Normal) Range: 0-10 PLT 287 K/mm3 (Normal) Range: 150-450 PLT EST SeeNote (Normal) Comments: Result: ADEQUATE RBC 4.19 {M/mm3} (Abnormal) Range: 4.2-5.4 RDW 13.7 % (Normal) Range: 11.6-14.6 RED CELL MORPH SeeNote {NORMAL} (Normal) Comments: Result: NORM C&C SEGS 65 % (Normal) Range: 47-70 WBC 6.8 K/mm3 (Normal) Range: 4.4-11.0 :41 COMP METABOLIC A/G 1.3 {RATIO} (Normal) Range: 0.9-2.4 ALB 3.9 g/dL (Normal) Range: 3.4-5.0 ALK P 47 U/L (Abnormal) Range: 50-136 ALT 26 [iU]/L (Abnormal) Range: 30-65 AST 20 U/L (Normal) Range: 15-37 BUN 15 mg/dL (Normal) Range: 7-18 BUN/CRE 18.8 {RATIO} (Normal) Range: 10-20 CA 9.2 mg/dL (Normal) Range: 8.5-10.1 CL 102 mmol/L (Normal) Range: 98-107 CO2 29.3 mmol/L (Normal) Range: 21.0-32.0 Comments: Please Note Reference Interval Change CREAT,SERUM 0.8 mg/dL (Normal) Range: 0.6-1.0 GAP 6 (Normal) Range: 5-15 GLOB 3.1 g/dL (Normal) Range: 2.7-4.2 Comments: Please Note Reference Interval Change GLU 128 mg/dL (Abnormal) Range: 70-110 Comments: Fasting Glucose result greater than or equal to 126 mg/dL suggests DIABETES MELLITUS per A.D.A. criteria. K 4.2 mmol/L (Normal) Range: 3.5-5.1 NA 137 mmol/L (Normal) Range: 136-145 T BILI 0.36 mg/dL (Normal) Range: 0.00-1.00 T PROT 7.0 g/dL (Normal) Range: 6.4-8.2 :41 ROUTINE UA BILIRUBIN URINE SeeNote (Normal) Comments: Result: NEGATIVE CLARITY SeeNote (Normal) Comments: Result: SL CLOUDY GLUCOSE, UR SeeNote (Normal) Comments: Result: NEGATIVE KETONE UR SeeNote mg/dL (Normal) Comments: Result: NEGATIVE LEUK ESTERASE SeeNote (Normal) Comments: Result: NEGATIVE NITRITE UR SeeNote (Normal) Comments: Result: NEGATIVE OCCULT BLOOD-UR SeeNote (Normal) Comments: Result: NEGATIVE pH UR 6.5 (Normal) Range: 5.0-8.0 PROT DIPSTX SeeNote (Normal) Comments: Result: NEGATIVE SP.GR. DIPSTX 1.020 (Normal) Range: 1.002-1.030 UROBILI 0.2 EU/dl (Normal) Range: 0.2 - 1.0 COLOR YELLOW (Normal) :41 TSH 1.10 {uIU/mL} (Normal) Range: 0.34-4.82 :53 CHEST WITH CONTRAST Radiology Report See Note (Normal) Comments: Exam Number: [id number] [facility] Consecutive axial scans were obtained at 5-mm intervals from the lungapices to the adrenals with the intravenous administration of 100m illiliters o f Isovue 300. 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 The root of theaorta and the ascending thoracic aorta are in their expectedposition. At the level of the origin of the great vessels, the rightsubclavian artery and right common carotid artery arise from thehighest point of the aortic arch which is positioned to the right. Extending slightly inferiorly, the aorta forms a U-shaped str ucturewhich passes behind the trachea and the esophagus and from which anadditional artery originates. This artery extends across midlineanterior to the esophagus and the trachea to the right before di vidinginto 2 separate arteries consistent with the left subclavian and theleft common carotid. There is therefore a vascular ring formed by theaortic arch, what appears to be a left innominate artery, and the leftinnominate vein. This vascular ring surrounds the trachea and theesophagus at that level. The aortic arch is on the right side. Extending inferiorly, the aorta projects in midline before againcrossing midline to the right, then recrossing midline to the left. It therefore enters the upper abdomen on the left in the usualposition. The aorta is not unusually dilated. There is no evidenc eof an aortic dissection identified. There are sternotomy sutures andsurgical clips compatible with coronary artery bypass graft surgery. There is no hilar, mediastinal, or axillary adenopathy identifi ed. There is a prominent azygos vein and arch. What is seen of the liveris homogeneous. The spleen is inhomogeneous compatible with timing ofthe contrast bolus. There is no adrenal lesion identified . Lungdetail images demonstrate a 3 mm density in the right middle lobe. There is a 5 mm density in the left lower lobe. For furtherevaluation of these very small densities, followup CT in 6 months is recommended. IMPRESSION1. There is a right-sided aortic arch. The right- sided aortic archis associated with a vascular ring which surrounds the trachea andesophagus. 2. There is a prominent azygos v ein and arch.3. There is evidence of previous coronary artery bypass graftsurgery. 4. There is a 3 mm nodule in the right middle lobe and 5 mm nodule inthe left lower lobe. For further evaluation of these nodules,followup CT in 6 months is suggested. Reported By: KEYA TREJO M.D. [id number] HgA1C , Office (00274) Comments: [facility] HgA1C , Office 6.6 % (Normal) Range: 4.6 - 7.1 [id number]:45 Blood Glucose , Office (04235) Comments: [facility] Blood Glucose , Office 105 (Normal) 68-Okd-[id number]:55 LIPID CHOL 122 mg/dL (Normal) Comments: <200 mg/dL Desirable 200-240 mg/dL Borderline >240 mg/dL High Risk HDL 24 mg/dL (Abnormal) Comments: Reference Range HDL <40 mg/dL Low HDL Cholesterol HDL >or= 60 mg/dL High HDL Cholesterol LDL 51 mg/dL (Normal) Range: 0-130 TRIG 237 mg/dL (Abnormal) Comments: Serum Triglycerides Reference Interval Normal <150 mg/dL Borderline high 150 - 199 mg/dL High 200 - 499 mg/dL Very High > or = 500 mg/dL VLDL 47 mg/dL (Abnormal) Range: 5-40 :55 LIVER ALB 3.5 g/dL (Normal) Range: 3.4-5.0 ALK P 39 U/L (Abnormal) Range: 50-136 ALT 22 [iU]/L (Abnormal) Range: 30-65 AST 12 U/L (Abnormal) Range: 15-37 D BILI 0.12 mg/dL (Normal) Range: 0.00-0.30 T BILI 0.37 mg/dL (Normal) Range: 0.00-1.00 T PROT 6.7 g/dL (Normal) Range: 6.4-8.2 :43 CHEST, PA AND LATERAL Radiology Report See Note (Normal) Comments: Exam Number: [id number] CHEST PA AND LATERAL STATEMENTCough and pneumonia. COMPARISONFebruary 2006. Heart size is stable. The aorta is tortuous. The patient is statuspost median sternotomy. Lungs appear clear of acute infiltrate,venous congestion or pleural effusion. There is a thoracic kyphosisand degenerative change of the spine including moder ate remotecompression deformity of 1 of the mid dorsal vertebral bodies. Novenous congestion, pleural effusion or consolidation is shown. Thereis hazy soft tissue opacity to the right of the trachea likelysecondary to tortuosity of the aorta and great vessels, this is astable finding. IMPRESSIONChronic findings as described. No acute process or significantinterval change. Reported By: CHIVO MONIQUE M.D. :41 HgA1C , Office (99631) HgA1C , Office 6.8 % (Normal) Range: 4.6 - 7.1 :41 Blood Glucose , Office (80625) Blood Glucose , Office 126 (Normal) [id number]-[id number]:11 CBCD,SMEAR DIFF CELLS COUNTED 100 (Normal) EOS 3 % (Normal) Range: 0-5 HCT 36.6 % (Abnormal) Range: 37-47 HGB 12.4 g/dL (Normal) Range: 12.0-16.0 LYMPH 24 % (Normal) Range: 19-41 MCH 28.3 pg (Normal) Range: 27.0-32.0 MCHC 33.8 g/dL (Normal) Range: 32-36 MCV 83.8 fL (Normal) Range: 81-99 MONOCYTE 8 % (Normal) Range: 0-10 PLT 285 K/mm3 (Normal) Range: 150-450 PLT EST SeeNote (Normal) Comments: Result: ADEQUATE RBC 4.37 {M/mm3} (Normal) Range: 4.2-5.4 RDW 13.8 % (Normal) Range: 11.6-14.6 RED CELL MORPH SeeNote {NORMAL} (Normal) Comments: Result: NORM C&C SEGS 65 % (Normal) Range: 47-70 WBC 7.4 K/mm3 (Normal) Range: 4.4-11.0 :11 COMP METABOLIC A/G 1.1 {RATIO} (Normal) Range: 0.9-2.4 ALB 3.7 g/dL (Normal) Range: 3.4-5.0 ALK P 71 U/L (Normal) Range: 50-136 ALT 25 [iU]/L (Abnormal) Range: 30-65 AST 11 U/L (Abnormal) Range: 15-37 BUN 15 mg/dL (Normal) Range: 7-18 BUN/CRE 16.7 {RATIO} (Normal) Range: 10-20 CA 9.5 mg/dL (Normal) Range: 8.5-10.1 CL 103 mmol/L (Normal) Range: 98-107 CO2 29.0 mmol/L (Normal) Range: 22.0-29.0 CREAT,SERUM 0.9 mg/dL (Normal) Range: 0.6-1.0 GAP 6 (Normal) Range: 5-15 GLOB 3.4 g/dL (Normal) Range: 2.3-3.5 GLU 138 mg/dL (Abnormal) Range: 70-110 Comments: Fasting Glucose result greater than or equal to 126 mg/dL suggests DIABETES MELLITUS per A.D.A. criteria. K 4.1 mmol/L (Normal) Range: 3.5-5.1 NA 138 mmol/L (Normal) Range: 136-145 T BILI 0.28 mg/dL (Normal) Range: 0.00-1.00 T PROT 7.1 g/dL (Normal) Range: 6.4-8.2 [id number] COMPLETE UA BACTERIA 0 SEEN {/hpf} (Normal) BILIRUBIN URINE SeeNote (Normal) Comments: Result: NEGATIVE CLARITY CLEAR (Normal) COLOR YELLOW (Normal) GLUCOSE, UR SeeNote (Normal) Comments: Result: NEGATIVE KETONE UR SeeNote mg/dL (Normal) Comments: Result: NEGATIVE LEUK ESTERASE SeeNote (Normal) Comments: Result: NEGATIVE MUCUS, URINE 0 SEEN {/hpf} (Normal) NITRITE UR SeeNote (Normal) Comments: Result: NEGATIVE OCCULT BLOOD-UR SeeNote (Normal) Comments: Result: NEGATIVE pH UR 6.0 (Normal) Range: 5.0-8.0 PROT DIPSTX SeeNote (Normal) Comments: Result: NEGATIVE RBC-UA 0 SEEN {/hpf} (Normal) Range: 0-5 SP.GR. DIPSTX >=1.030 (Normal) Range: 1.002-1.030 SQUAM EPI 0 SEEN {/hpf} (Normal) Range: 5-10 UROBILI 0.2 EU/dl (Normal) Range: 0.2 - 1.0 WBC SeeNote {/hpf} (Normal) Range: 0-5 Comments: Result: 0-5 SEEN :11 MICROALBUMIN,UR 9.1 mg/L (Normal) [id number]:11 PFLIP CHOL 141 mg/dL (Normal) Comments: <200 mg/dL Desirable 200-240 mg/dL Borderline >240 mg/dL High Risk HDL 28 mg/dL (Abnormal) Comments: Reference Range HDL <40 mg/dL Low HDL Cholesterol HDL >or= 60 mg/dL High HDL Cholesterol LDL 55 mg/dL (Normal) Range: 0-130 TRIG 289 mg/dL (Abnormal) Comments: Serum Triglycerides Reference Interval Normal <150 mg/dL Borderline high 150 - 199 mg/dL High 200 - 499 mg/dL Very High > or = 500 mg/dL VLDL 58 mg/dL (Abnormal) Range: 5-40 [id number]:11 TSH 0.85 {uIU/mL} (Normal) Range: 0.34-4.82 :11 HgA1C , Office (35375) HgA1C , Office 6.7 % (Normal) Range: 4.6 - 7.1 :11 Blood Glucose , Office (87629) Blood Glucose , Office 153 (Normal) Plan of Care Name Dates Details Instructions Nonsmoker : Follow up if no improvement or if symptoms worsen Indication: Nonsmoker Cough : Eprescribed prescriptions (G8553) Indication: Cough Bronchitis : *URI Treatment Indication: Bronchitis Bronchitis : *URI Symptoms Indication: Bronchitis Bronchitis : *Antibiotic Usage Education - Female Indication: Bronchitis Nonsmoker : Eprescribed prescriptions (G8553) Indication: Nonsmoker Diabetes mellitus type II, controlled : Follow up in 3 months Indication: Diabetes mellitus type II, controlled Asthma : Reviewed [employer] Person Letter Indication: Asthma Coronary artery disease : Reviewed [employer] Person Letter Indication: Coronary artery disease Hypertensive heart disease without heart failure : HTN/CAD Red Flags Indication: Hypertensive heart disease without heart failure ATRIAL FIBRILLATION (Renamed from A-fib) : Reviewed [employer] Person Letter Indication: ATRIAL FIBRILLATION (Renamed from A-fib) Type 2 diabetes mellitus, uncontrolled : Follow up in 3 months Indication: Type 2 diabetes mellitus, uncontrolled Coronary artery disease : Reviewed [employer] Person Letter Indication: Coronary artery disease Hypertensive heart disease without heart failure : Diet, Exercise, and Wt loss Indication: Hypertensive heart disease without heart failure Hypertensive heart disease without heart failure : HTN/CAD Red Flags Indication: Hypertensive heart disease without heart failure Mixed dyslipidemia : Cholesterol mgmt Indication: Mixed dyslipidemia Mixed dyslipidemia : *Cholesterol - Nonprescription Treatment Indication: Mixed dyslipidemia Diabetes mellitus type II, controlled : Follow up in 3 months Indication: Diabetes mellitus type II, controlled Mixed dyslipidemia : Cholesterol mgmt Indication: Mixed dyslipidemia Hypertensive heart disease without heart failure : HTN/CAD Red Flags Indication: Hypertensive heart disease without heart failure Coronary artery disease : Reviewed [employer] Person Letter Indication: Coronary artery disease Diabetes mellitus type II, controlled : *Diabetes Education Indication: Diabetes mellitus type II, controlled Nonsmoker : Eprescribed prescriptions (G8553) Indication: Nonsmoker Coronary artery disease : Continue Current Prescription(s) Indication: Coronary artery disease Hypertensive heart disease without heart failure : BP MONITORING - SELF Indication: Hypertensive heart disease without heart failure Mixed dyslipidemia : Reviewed Lab Indication: Mixed dyslipidemia ATRIAL FIBRILLATION (Renamed from A-fib) : Reviewed [employer] Person Letter Indication: ATRIAL FIBRILLATION (Renamed from A-fib) ATRIAL FIBRILLATION (Renamed from A-fib) : Reviewed Diagnostic Tests Indication: ATRIAL FIBRILLATION (Renamed from A-fib) ATRIAL FIBRILLATION (Renamed from A-fib) : Reviewed Lab Indication: ATRIAL FIBRILLATION (Renamed from A-fib) Coronary artery disease : Continue Current Prescription(s) Indication: Coronary artery disease Type 2 diabetes mellitus, uncontrolled : Follow up in 1-2 weeks fu sugars and meds Indication: Type 2 diabetes mellitus, uncontrolled Type 2 diabetes mellitus, uncontrolled : Follow up in 3 months- gen med Indication: Type 2 diabetes mellitus, uncontrolled Type 2 diabetes mellitus, uncontrolled : *Diabetes Education Indication: Type 2 diabetes mellitus, uncontrolled ATRIAL FIBRILLATION (Renamed from A-fib) : Reviewed Lab Indication: ATRIAL FIBRILLATION (Renamed from A-fib) ATRIAL FIBRILLATION (Renamed from A-fib) : Reviewed Diagnostic Tests Indication: ATRIAL FIBRILLATION (Renamed from A-fib) ATRIAL FIBRILLATION (Renamed from A-fib) : Reviewed [employer] Person Letter Indication: ATRIAL FIBRILLATION (Renamed from A-fib) Type 2 diabetes mellitus, uncontrolled : Follow up in 3 months Indication: Type 2 diabetes mellitus, uncontrolled Gout, arthritis : Reviewed Lab Indication: Gout, arthritis Asthma : Reviewed [employer] Person Letter Indication: Asthma Type 2 diabetes mellitus, uncontrolled : *Diabetes Education Indication: Type 2 diabetes mellitus, uncontrolled Coronary artery disease : Reviewed [employer] Person Letter Indication: Coronary artery disease Mixed dyslipidemia : Cholesterol mgmt Indication: Mixed dyslipidemia Coronary artery disease : Continue Current Prescription(s) Indication: Coronary artery disease Hypertensive heart disease without heart failure : Continue Current Prescription(s) Indication: Hypertensive heart disease without heart failure Type 2 diabetes mellitus, uncontrolled : Follow up in 3 months Indication: Type 2 diabetes mellitus, uncontrolled Gastroesophageal reflux disease without esophagitis : GERD Education Indication: Gastroesophageal reflux disease without esophagitis Mixed dyslipidemia : Cholesterol mgmt Indication: Mixed dyslipidemia Asthma : Continue Current Prescription(s) Indication: Asthma Coronary artery disease : Reviewed [employer] Person Letter Indication: Coronary artery disease Hypertensive heart disease without heart failure : HTN/CAD Red Flags Indication: Hypertensive heart disease without heart failure Type 2 diabetes mellitus, uncontrolled : Follow up in 3 months Indication: Type 2 diabetes mellitus, uncontrolled Hypertensive heart disease without heart failure : HTN/CAD Red Flags Indication: Hypertensive heart disease without heart failure Hypertensive heart disease without heart failure : Diet, Exercise, and Wt loss Indication: Hypertensive heart disease without heart failure Gastroesophageal reflux disease without esophagitis : GERD Education Indication: Gastroesophageal reflux disease without esophagitis Type 2 diabetes mellitus, uncontrolled : Diet, Exercise, and Wt loss Indication: Type 2 diabetes mellitus, uncontrolled Type 2 diabetes mellitus, uncontrolled : *Diabetes Education Indication: Type 2 diabetes mellitus, uncontrolled Type 2 diabetes mellitus, uncontrolled : Eprescribed prescriptions (G8553) Indication: Type 2 diabetes mellitus, uncontrolled Type 2 diabetes mellitus, uncontrolled : Follow up in 1 month Indication: Type 2 diabetes mellitus, uncontrolled Type 2 diabetes mellitus, uncontrolled : Eprescribed prescriptions (G8553) Indication: Type 2 diabetes mellitus, uncontrolled Type 2 diabetes mellitus, uncontrolled : Blood Glucose Test: blood Indication: Type 2 diabetes mellitus, uncontrolled Type 2 diabetes mellitus, uncontrolled : Eprescribed prescriptions (G8553) Indication: Type 2 diabetes mellitus, uncontrolled Type 2 diabetes mellitus, uncontrolled : Eprescribed prescriptions (G8553) Indication: Type 2 diabetes mellitus, uncontrolled Mixed dyslipidemia : Diet, Exercise, and Wt loss Indication: Mixed dyslipidemia Type 2 diabetes mellitus, uncontrolled : Diet, Exercise, and Wt loss Indication: Type 2 diabetes mellitus, uncontrolled Type 2 diabetes mellitus, uncontrolled : Eprescribed prescriptions (G8553) Indication: Type 2 diabetes mellitus, uncontrolled Other vitamin B12 deficiency anemia : Eprescribed prescriptions (G8553) Indication: Other vitamin B12 deficiency anemia Mixed dyslipidemia : Diet, Exercise, and Wt loss Indication: Mixed dyslipidemia Type 2 diabetes mellitus, uncontrolled : Eprescribed prescriptions (G8553) Indication: Type 2 diabetes mellitus, uncontrolled Type 2 diabetes mellitus, uncontrolled : Eprescribed prescriptions (G8553) Indication: Type 2 diabetes mellitus, uncontrolled Need for prophylactic vaccination and inoculation against influenza : Flu (Influenza) *: flu Indication: Need for prophylactic vaccination and inoculation against influenza Need for prophylactic vaccination and inoculation against influenza : Flu (Influenza) *: flu shot Indication: Need for prophylactic vaccination and inoculation against influenza Type 2 diabetes mellitus, uncontrolled : Eprescribed prescriptions (G8553) Indication: Type 2 diabetes mellitus, uncontrolled Type 2 diabetes mellitus, uncontrolled : Diet, Exercise, and Wt loss Indication: Type 2 diabetes mellitus, uncontrolled Hypertension : Eprescribed prescriptions (G8553) Indication: Hypertension Type 2 diabetes mellitus, uncontrolled : Blood Glucose Test: blood Indication: Type 2 diabetes mellitus, uncontrolled Type 2 diabetes mellitus, uncontrolled : Eprescribed prescriptions (G8553) Indication: Type 2 diabetes mellitus, uncontrolled Type 2 diabetes mellitus, uncontrolled : Diet, Exercise, and Wt loss Indication: Type 2 diabetes mellitus, uncontrolled Type 2 diabetes mellitus, uncontrolled : Eprescribed prescriptions (G8553) Indication: Type 2 diabetes mellitus, uncontrolled Type 2 diabetes mellitus, uncontrolled : Diet, Exercise, and Wt loss Indication: Type 2 diabetes mellitus, uncontrolled Type 2 diabetes mellitus, uncontrolled : Eprescribed prescriptions (G8553) Indication: Type 2 diabetes mellitus, uncontrolled Cough : Cough Medicines, Nonprescription: cough Indication: Cough Cough : Eprescribed prescriptions (G8553) Indication: Cough Cough : Follow up if no improvement or if symptoms worsen Indication: Cough Unspecified asthma with (acute) exacerbation : Eprescribed prescriptions (G8553) Indication: Unspecified asthma with (acute) exacerbation Benign neoplasm of cerebral meninges : Follow up in 2 weeks Indication: 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 : Follow up on Friday with [facility] Indication: Benign neoplasm of cerebral meninges Type 2 diabetes mellitus, uncontrolled : Diet, Exercise, and Wt loss Indication: Type 2 diabetes mellitus, uncontrolled Need for prophylactic vaccination and inoculation against influenza : Flu (Influenza) *: flu Indication: Need for prophylactic vaccination and inoculation against influenza Need for prophylactic vaccination and inoculation against influenza : Flu (Influenza) *: flu shot Indication: Need for prophylactic vaccination and inoculation against influenza Mixed dyslipidemia : Diet, Exercise, and Wt loss Indication: Mixed dyslipidemia Mixed dyslipidemia : Health Maintenance: Controlling Cholesterol: cardiovascular health Indication: Mixed dyslipidemia Mixed dyslipidemia : Eprescribed prescriptions (G8553) Indication: Mixed dyslipidemia Unspecified asthma with (acute) exacerbation : Follow up if no improvement or if symptoms worsen Indication: Unspecified asthma with (acute) exacerbation Cough : Follow up in 1 week Indication: Cough Cough : Cough Medicines, Nonprescription: cough Indication: Cough Cough : Follow up if no improvement or if symptoms worsen Indication: Cough Unspecified asthma with (acute) exacerbation : *URI Treatment Indication: Unspecified asthma with (acute) exacerbation Unspecified asthma with (acute) exacerbation : *URI Symptoms Indication: Unspecified asthma with (acute) exacerbation Unspecified asthma with (acute) exacerbation : *Antibiotic Usage Education - Female Indication: Unspecified asthma with (acute) exacerbation Type 2 diabetes mellitus, uncontrolled : Diabetes and Exercise: Preventing Low Blood Sugar: blood sugar Indication: Type 2 diabetes mellitus, uncontrolled Unspecified asthma with (acute) exacerbation : Solu Medrol Injection/ Education Indication: Unspecified asthma with (acute) exacerbation Encounter for Medicare annual wellness exam : Diet, Exercise, and Wt loss Indication: Encounter for Medicare annual wellness exam Encounter for Medicare annual wellness exam : fall reduction handout Indication: Encounter for Medicare annual wellness exam Encounter for Medicare annual wellness exam : elderly packet given Indication: Encounter for Medicare annual wellness exam Encounter for screening for malignant neoplasm of cervix : *Well Female Maintenance (KF) Indication: Encounter for screening for malignant neoplasm of cervix Foot pain : Follow up if no improvement or if symptoms worsen Indication: Foot pain Mixed dyslipidemia : Diet, Exercise, and Wt loss Indication: Mixed dyslipidemia Mixed dyslipidemia : *Cholesterol - Medication Side Effects Indication: Mixed dyslipidemia Unspecified asthma with (acute) exacerbation : Cough: respiratory infection Indication: Unspecified asthma with (acute) exacerbation Other premature beats : Diet, Exercise, and Wt loss Indication: Other premature beats Type 2 diabetes mellitus, uncontrolled : Diabetes and Illness: diabetes and illness Indication: Type 2 diabetes mellitus, uncontrolled Unspecified asthma with (acute) exacerbation : Follow up if no improvement or if symptoms worsen Indication: Unspecified asthma with (acute) exacerbation Anemia : Anemia: anemia Indication: Anemia Heart disease, hypertensive, malignant, without heart failure : High Blood Pressure (Essential Hypertension) *: blood pressure Indication: Heart disease, hypertensive, malignant, without heart failure Mixed dyslipidemia : Diet, Exercise, and Wt loss Indication: Mixed dyslipidemia Type 2 diabetes mellitus, uncontrolled : Diet, Exercise, and Wt loss Indication: Type 2 diabetes mellitus, uncontrolled Cough : Follow up in 10 days with [facility] Indication: Cough Laryngitis : Laryngitis Education Indication: Laryngitis Bronchitis, acute : FOLLOW UP NEEDED Indication: Bronchitis, acute Bronchitis, acute : *Antibiotic Usage Education - Female Indication: Bronchitis, acute Allergic rhinitis due to other allergen : URI Symptoms Indication: Allergic rhinitis due to other allergen Type 2 diabetes mellitus, uncontrolled : Diet and Exercise Indication: Type 2 diabetes mellitus, uncontrolled Mixed dyslipidemia : Diet and Exercise Indication: Mixed dyslipidemia Bronchitis, acute : Antibiotic Usage Education - Female Indication: Bronchitis, acute Bronchitis, acute : Antibiotic Usage Education - Female Indication: Bronchitis, acute Neoplasm of uncertain behavior of skin : Punch Biopsy with Epi Indication: Neoplasm of uncertain behavior of skin Chronic obstructive asthma, with status asthmaticus : Solu Medrol Injection/ Education Indication: Chronic obstructive asthma, with status asthmaticus Chronic obstructive asthma, with status asthmaticus : URI treament Indication: Chronic obstructive asthma, with status asthmaticus Chronic obstructive asthma, with status asthmaticus : URI Symptoms Indication: Chronic obstructive asthma, with status asthmaticus Gastroesophageal reflux disease without esophagitis : FOLLOW UP IN 3 MONTHS Indication: Gastroesophageal reflux disease without esophagitis Heart disease, hypertensive, malignant, without heart failure : FOLLOW UP IN 3 MONTHS Indication: Heart disease, hypertensive, malignant, without heart failure Coronary artery disease : FOLLOW UP IN 3 MONTHS Indication: Coronary artery disease well female - pap pelvic and bimanual performed : FOLLOW UP IN 2 MONTHS Indication: well female - pap pelvic and bimanual performed Planned Observations TSH ([id number])Indication: Diabetes mellitus type II, controlled On: :15 Request URINALYSIS, W/ MICRO ([id number])Indication: Diabetes mellitus type II, controlled On: 2-Zzk-387556:15 Request MICROALBUMIN: CREATININE RATIO ([id number]) AND ([id number])Indication: Diabetes mellitus type II, controlled On: :15 Request METABOLIC PANEL, COMPREHENSIVE (31288)Indication: Diabetes mellitus type II, controlled On: 1-Hwi-909413:15 Request CBC W/AUTO DIFF WBC ([id number])Indication: Diabetes mellitus type II, controlled On: :15 Request LIPOPROTEIN, BLD, BY NMR ([id number])Indication: Diabetes mellitus type II, controlled On: 1-Mxi-863325:15 Request TSH ([id number])Indication: ATRIAL FIBRILLATION (Renamed from A-fib) On: 23-Rqt-857194:16 Request URINALYSIS, W/ MICRO ([id number])Indication: Diabetes mellitus type II, controlled On: 52-Jrh-681417:16 Request MICROALBUMIN: CREATININE RATIO ([id number]) AND ([id number])Indication: Diabetes mellitus type II, controlled On: 84-Xfa-549078:16 Request METABOLIC PANEL, COMPREHENSIVE (96063)Indication: Diabetes mellitus type II, controlled On: 80-Bhl-167219:16 Request LIPOPROTEIN, BLD, BY NMR ([id number])Indication: Diabetes mellitus type II, controlled On: 93-Jmm-982452:16 Request LIPID PANEL (35072)Indication: Diabetes mellitus type II, controlled On: 44-Ntk-486449:16 Request CBC W/AUTO DIFF WBC ([id number])Indication: Diabetes mellitus type II, controlled On: 32-Bik-052297:15 Request VITAMIN B-12 (CYANOCOBALAMIN) ([id number])Indication: Other vitamin B12 deficiency anemia On: 9-Sav-032645:50 Request TSH ([id number])Indication: ATRIAL FIBRILLATION (Renamed from A-fib) On: 7-Boy-619694:50 Request URINALYSIS, W/ MICRO (12903)Indication: Hypertensive heart disease without heart failure On: 9-Zyn-278091:49 Request MICROALBUMIN: CREATININE RATIO (63656) AND (06485)Indication: Hypertensive heart disease without heart failure On: 0-Kfv-269231:49 Request METABOLIC PANEL, COMPREHENSIVE (10358)Indication: Hypertensive heart disease without heart failure On: 3-Urb-410512:49 Request CBC W/AUTO DIFF WBC (53771)Indication: Hypertensive heart disease without heart failure On: 9-Sjl-272885:49 Request CALCIFEDIOL (71794)Indication: Vitamin D deficiency, unspecified On: 0-Mzr-538891:49 Request LIPID PANEL (25939)Indication: Mixed dyslipidemia On: 8-Vjr-349383:49 Request URINALYSIS, W/ MICRO (48204)Indication: Type 2 diabetes mellitus, uncontrolled On: 78-Gdh-084360:23 Request MICROALBUMIN: CREATININE RATIO (56706) AND (69339)Indication: Type 2 diabetes mellitus, uncontrolled On: 23-Eyv-808644:23 Request HEMOGLOBIN GLYCLATED (HGB A1C) (56580)Indication: Type 2 diabetes mellitus, uncontrolled On: 86-Ehz-074403:03 Request HgA1C , Office (86691)Indication: Type 2 diabetes mellitus, uncontrolled On: 70-Fwz-172981:46 Request Vitamin D Hydroxy (45644)Indication: Vitamin D deficiency, unspecified On: 35-Qph-789564:16 Request VITAMIN B-12 (CYANOCOBALAMIN) (46291)Indication: Other vitamin B12 deficiency anemia On: 58-Cyp-641330:16 Request CBC with auto diff ([id number])Indication: Iron deficiency anemia, unspecified On: 29-Nly-159797:15 Request LIPID PANEL (27027)Indication: Mixed dyslipidemia On: 27-Fpx-384086:15 Request METABOLIC PANEL, COMPREHENSIVE (61551)Indication: Type 2 diabetes mellitus, uncontrolled On: 54-Nir-040123:15 Request CBC W/AUTO DIFF WBC (07428)Indication: Iron deficiency anemia, unspecified On: 03-Gcn-604593:44 Request URINALYSIS, W/ MICRO (87058)Indication: Heart disease, hypertensive, malignant, without heart failure On: 90-Tzt-421478:44 Request METABOLIC PANEL, COMPREHENSIVE (45735)Indication: Heart disease, hypertensive, malignant, without heart failure On: 40-Clk-168395:44 Request MICROALBUMIN: CREATININE RATIO (98021) AND ([id number])Indication: Heart disease, hypertensive, malignant, without heart failure On: 45-Vkb-703616:44 Request IRON ([id number])Indication: Iron deficiency anemia, unspecified On: 97-Mkr-554848:44 Request CBC, Platelets & Auto Diff (67039)Indication: SOB On: :09 Request Renal function Panel (60711)Indication: SOB On: 0-Amu-355136:09 Request Vitamin D Hydroxy (11041)Indication: Vitamin D deficiency, unspecified On: 07-Bij-905065:04 Request VITAMIN B-12 (CYANOCOBALAMIN) (37606)Indication: Other vitamin B12 deficiency anemia On: 69-Ucb-515468:04 Request METABOLIC PANEL, COMPREHENSIVE (41939)Indication: Type 2 diabetes mellitus, uncontrolled On: :04 Request IRON (31723)Indication: Iron deficiency anemia, unspecified On: 47-Lyf-944374:59 Request IRON (17941)Indication: Iron deficiency anemia, unspecified On: 52-Moe-139472:18 Request CBC WITH MANUAL DIFF ([id number])Indication: Iron deficiency anemia, unspecified On: 89-Ofk-858022:43 Request METABOLIC PANEL, COMPREHENSIVE (06239)Indication: Hypertensive heart disease without heart failure On: 32-Mog-980964:43 Request CBC with manual diff ([id number])Indication: Anemia On: :53 Request Comments: recheck in 3 months Ferritin (97676)Indication: Anemia On: :53 Request Iron Binding Capacity (TIBC) (00712)Indication: Anemia On: :53 Request Iron (07964)Indication: Anemia On: :53 Request LIPID PANEL (23189)Indication: Mixed dyslipidemia On: 60-Qib-480891:43 Request IRON ([id number])Indication: Iron deficiency anemia, unspecified On: 12-Vhc-035811:35 Request Vitamin D Hydroxy (49074)Indication: Vitamin D deficiency, unspecified On: 5-Kit-431367:14 Request METABOLIC PANEL, COMPREHENSIVE (79817)Indication: Type 2 diabetes mellitus, uncontrolled On: 6-Tth-772518:13 Request IRON BINDING CAPACITY (TIBC) (63416)Indication: Iron deficiency anemia, unspecified On: 6-Oed-620121:10 Request FERRITIN (89830)Indication: Iron deficiency anemia, unspecified On: :10 Request IRON (69446)Indication: Iron deficiency anemia, unspecified On: : Request MICROALBUMIN: CREATININE RATIO (97624) AND (26084)Indication: Type 2 diabetes mellitus, uncontrolled On: :58 Request METABOLIC PANEL, COMPREHENSIVE (51244)Indication: Type 2 diabetes mellitus, uncontrolled On: : Request CBC WITH MANUAL DIFF (78909)Indication: Type 2 diabetes mellitus, uncontrolled On: :58 Request Vitamin D Hydroxy (51107)Indication: Vitamin D deficiency, unspecified On: Request VITAMIN B-12 (CYANOCOBALAMIN) (74097)Indication: Other vitamin B12 deficiency anemia On: :58 Request LIPID PANEL (38756)Indication: Mixed dyslipidemia On: : Request METABOLIC PANEL, COMPREHENSIVE (88867)Indication: Hypertension On: 68-Rhy-836406:00 Request CBC WITH MANUAL DIFF ([id number])Indication: Other vitamin B12 deficiency anemia On: 34-Fsg-393392:00 Request VITAMIN D, 1, 25-DIHYDROXY (82929)Indication: Vitamin D deficiency, unspecified On: 64-Swh-504773:00 Request Vitamin D Hydroxy (32772)Indication: Vitamin D deficiency, unspecified On: :29 Request LIPID PANEL (42431)Indication: Mixed dyslipidemia On: : Request METABOLIC PANEL, COMPREHENSIVE (16708)Indication: Diabetes mellitus type II, controlled On: : Request CBC WITH MANUAL DIFF ([id number])Indication: Other vitamin B12 deficiency anemia On: :29 Request MICROALBUMIN: CREATININE RATIO (38809) AND (43173)Indication: Diabetes mellitus type II, controlled On: : Request VITAMIN B-12 (CYANOCOBALAMIN) (16884)Indication: Other vitamin B12 deficiency anemia On: :29 Request HEMOGLOBIN GLYCLATED (HGB A1C) (33367)Indication: Diabetes mellitus type II, controlled On: :27 Request LIPID PANEL (65525)Indication: Mixed dyslipidemia On: :16 Request METABOLIC PANEL, COMPREHENSIVE (47587)Indication: Type 2 diabetes mellitus, uncontrolled On: :15 Request CBC WITH MANUAL DIFF ([id number])Indication: Type 2 diabetes mellitus, uncontrolled On: :15 Request MICROALBUMIN: CREATININE RATIO (92885) AND (24716)Indication: Type 2 diabetes mellitus, uncontrolled On: :15 Request VITAMIN B-12 (CYANOCOBALAMIN) (07711)Indication: Other vitamin B12 deficiency anemia On: :15 Request Vitamin D Hydroxy (55369)Indication: Vitamin D deficiency, unspecified On: :15 Request HgA1C , Office (23576)Indication: Type 2 diabetes mellitus, uncontrolled On: 65-Dpd-282754:38 Request VITAMIN B-12 (CYANOCOBALAMIN) (88553)Indication: Other vitamin B12 deficiency anemia On: :55 Request LIPID PANEL (73784)Indication: Mixed dyslipidemia On: :55 Request METABOLIC PANEL, COMPREHENSIVE (95288)Indication: Heart disease, hypertensive, malignant, without heart failure On: :53 Request CBC WITH MANUAL DIFF (52740)Indication: Diverticulitis On: :53 Request LEUKOCYTE COUNT, FECAL (53806)Indication: Diarrhea On: :47 Request C.Difficile, Stool (28592)Indication: Diarrhea On: :47 Request BRO CULTURE-STOOL (57151)Indication: Diarrhea On: :47 Request Metabolic Panel, Comprehensive (55130)Indication: Abdominal pain, unspecified abdominal location On: :46 Request HEPATIC FUNCTION PANEL (56416)Indication: Abdominal pain, unspecified abdominal location On: :46 Request Bilirubin, Direct (23955)Indication: Abdominal pain, unspecified abdominal location On: :44 Request Bilirubin, total (93043)Indication: Abdominal pain, unspecified abdominal location On: :44 Request CBC WITH MANUAL DIFF (90900)Indication: Other vitamin B12 deficiency anemia On: 46-Cui-583908:15 Request VITAMIN B-12 (CYANOCOBALAMIN) (19811)Indication: Other vitamin B12 deficiency anemia On: 45-Xif-627679:15 Request LIPID PANEL (98863)Indication: Mixed dyslipidemia On: 83-Mbg-270844:14 Request METABOLIC PANEL, COMPREHENSIVE (86776)Indication: Heart disease, hypertensive, malignant, without heart failure On: 84-Kbt-815711:14 Request Vitamin D Hydroxy (28650)Indication: Vitamin D deficiency, unspecified On: :06 Request CBC, PLATELETS & AUT DIFF (36122)Indication: Other vitamin B12 deficiency anemia On: :45 Request VITAMIN B-12 (CYANOCOBALAMIN) (44498)Indication: Other vitamin B12 deficiency anemia On: :45 Request HEPATIC FUNCTION PANEL (72674)Indication: Mixed dyslipidemia On: :44 Request LIPID PANEL (11032)Indication: Mixed dyslipidemia On: :44 Request Vitamin D Hydroxy (95288)Indication: vit d deficiency On: :33 Request Vitamin D Hydroxy (40604) On: 09-Dfo-315755:04 Request VITAMIN B-12 (CYANOCOBALAMIN) (04739)Indication: Other vitamin B12 deficiency anemia On: :04 Request CBC WITH MANUAL DIFF ([id number])Indication: Heart disease, hypertensive, malignant, without heart failure On: 57-Eet-095173:03 Request METABOLIC PANEL, COMPREHENSIVE (43631)Indication: Heart disease, hypertensive, malignant, without heart failure On: 01-Agg-851413:03 Request LIPOPROTEIN, BLD, BY NMR (93561)Indication: Mixed dyslipidemia On: 94-Wwc-691313:01 Request HEPATIC FUNCTION PANEL (63476)Indication: Mixed dyslipidemia On: 38-Tsa-193478: Request LIPID PANEL (96723)Indication: Mixed dyslipidemia On: 00-Wyl-286942: Request FOLIC ACID SERUM (59793)Indication: Anemia On: 56-Seo-491069:06 Request FERRITIN (85441)Indication: Anemia On: 61-Keh-218230:05 Request IRON ([id number])Indication: Anemia On: 55-Gvu-595218:05 Request IRON BINDING CAPACITY (TIBC) (85077)Indication: Anemia On: :05 Request RETICULOCYTE COUNT MANUL ([id number])Indication: Anemia On: : Request LDH (LD) (LACTATE DEHYDROGENASE) (49839)Indication: Anemia On: : Request VITAMIN B-12 (CYANOCOBALAMIN) (71816)Indication: Anemia On: : Request CBC WITH MANUAL DIFF ([id number])Indication: Anemia On: : Request HEPATIC FUNCTION PANEL (77125)Indication: Mixed dyslipidemia On: : Request LIPID PANEL (73317)Indication: Mixed dyslipidemia On: : Request MICROALBUMIN URINE QUANT (49611)Indication: Hypertension On: :42 Request TSH ([id number])Indication: Hypertension On: :42 Request METABOLIC PANEL, COMPREHENSIVE (44912)Indication: Diabetes mellitus type II, controlled On: :42 Request HEPATIC FUNCTION PANEL (59265)Indication: Mixed dyslipidemia On: :42 Request LIPID PANEL (05704)Indication: Mixed dyslipidemia On: :42 Request CBC WITH MANUAL DIFF ([id number])Indication: Anemia On: :36 Request HEPATIC FUNCTION PANEL ([id number])Indication: Mixed dyslipidemia On: :36 Request LIPID PANEL (46263)Indication: Mixed dyslipidemia On: :36 Request HgA1C , Office (41466)Indication: Diabetes mellitus type II, controlled On: :17 Request URINALYSIS W/O MICRO (07489)Indication: Hypertension On: :47 Request TSH (17721)Indication: Hypertension On: :47 Request METABOLIC PANEL, COMPREHENSIVE (76849)Indication: Hypertension On: :47 Request CBC WITH MANUAL DIFF ([id number])Indication: Hypertension On: :47 Request Thin prep Pap (78348)Indication: well female - pap pelvic and bimanual performed On: 8-Fba-233677:02 Request Planned Encounters Medical; 3 Month FU - On: 23-Mar-2018 10:00 [facility] Nia Uriostegui DO, DO, Kathleen Planned Procedures Spirometry (30052)By: Mt OJEDA, On: 06-Jan-2018 Intent Carlotta Comments: Mod restriction Spirometry (20405)By: Mt OJEDA, On: 06-Jan-2018 Intent Sherrie Beck Comments: pre mild restriction Solu -Medrol Injection, 125 mg On: 06-Jan-2018 Intent (J2930)By: Sherrie Amor CNP Aerosol Treatment ([id number])By: Mt On: 06-Jan-2018 Intent Sherrie OJEDA CHEST XRAY, PA & LATERAL (51597)By: On: 06-Jan-2018 Intent Sherrie Amor CNP Aerosol Treatment (43894)By: Mt On: 30-Dec-2017 Intent Sherrie OJEDA Flu Vaccine (Quadrivalent) 86012Iz: On: 15-Dec-2017 Intent Nia Uriostegui DO, DO, Comments: Lot #[id number]-L dltd, IMDose prefilled syringegiven by: Susie Lopez LPN.VIS reviewed and ABN signed Nia B 12 Injection, 1000 mcg (J3420)By: On: 15-Dec-2017 Intent Nia Uriostegui DO, DO, Comments: 1 ml given rt dltd lot [id number] exp 05/30 Nia ELECTROCARDIOGRAM, COMPLETE (ECG) On: 15-Dec-2017 Intent (72197)By: Nia Uriostegui DO Comments: nsr !! 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 Nia B 12 Injection, 1000 mcg (J3420)By: On: 12-Feb-2017 Intent Moody DO, Nia Moody DO, Comments: 1 ml given lt arm lot [id number] exp 06/28 Nia B 12 Injection, 1000 mcg (J3420)By: On: 29-Nov-2016 Intent Moody DO, Nia Moody DO, Comments: b12 1000mcglot: [id number]: 03/2018L DELT IMpt tolerated wellAD V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 OF [employer]ODUCT MARKETING Nia Flu Vaccine (Quadrivalent) 49299Dg: On: 07-Nov-2016 Intent Moody DO, Nia Uriostegui DO, Comments: Lot:[id number]:07/28/17Amt:0.5mlRoute:IMSite: L DltdGiven By: RAHUL Bar signed Nia B 12 Injection, 1000 mcg (J3420)By: On: 04-Nov-2016 Intent Moody [place], Nia Uriostegui DO, Comments: lot [id number] exp mcgleft dltdIMas Nia B 12 Injection, 1000 mcg (J3420)By: On: 08-Aug-2016 Intent Moody DO, Nia Uriostegui DO, Comments: Lot:[id number]:07/28Dose:1mlRoute:IMSite:l armGiven By:SASKIA signed Nia B 12 Injection, 1000 mcg (J3420)By: On: 24-Apr-2016 Intent Selam Uriostegui DOhleen Moody DO, Comments: Lot:[id number]:05/28Dose:1mlRoute:IMSite:Given By:SASKIA signed Nia ELECTROCARDIOGRAM, COMPLETE (ECG) On: 24-Apr-2016 Intent (51465)By: Nia Uriostegui DO Comments: sinus ana no acute chg Nia Uriostegui DO Aerosol Treatment (62036)By: Bela On: 27-Feb-2016 Intent Balbir ROSAS Solu- Medrol Injection, 125mg On: 27-Feb-2016 Intent (J2930)By: Balbir Cramer MD Comments: lot [id number] mgleft gmIMas, V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 OF [employer]ODUCT MARKETING Pulse Oximetry (47169)By: Bela ROSAS, On: 16-Jan-2016 Intent Balbir Aerosol Treatment (87760)By: Bela On: 16-Jan-2016 Intent Balbir ROSAS Solu- Medrol Injection, 125mg On: 16-Jan-2016 Intent (J2930)By: Balbir Cramer MD Comments: Lot:[id number]:06/28Dose:125mgRoute:imSite:r hipGiven By:SASKIA signed CHEST XRAY, PA & LATERAL (78597)By: On: 16-Jan-2016 Intent Balbir Cramer MD Comments: ?PNA CAROTID ULTRASOUND (83786)By: Bela On: 16-Jan-2016 Intent Balbir ROSAS DEXA SCAN AXIAL SKELETON (87371)By: On: 16-Jan-2016 Intent Balbir Cramer MD MAMMOGRAM, SCREENING, BOTH BREAST On: 16-Jan-2016 Intent (40990)By: Balbir Cramer MD B 12 Injection, 1000 mcg (J3420)By: On: 16-Jan-2016 Intent Balbir Cramer MD Comments: lot: [id number]: ite/route: L del/IMamt: 1mLVIS signed when applicableMONSTER Molina B 12 Injection, 1000 mcg (J3420)By: On: 11-Oct-2015 Intent Balbir Cramer MD Flu Vaccine ([employer]) 39508Ah: On: 11-Oct-2015 Intent Balbir Cramer MD Comments: Lot #[id number]/30/17ite-L dltd, IMDose prefilled syringegiven by:MAYCO OSWALD and ABN signed B 12 Injection, 1000 mcg (J3420)By: On: 22-May-2015 Intent Maylin Melendez DO B 12 Injection, 1000 mcg (J3420)By: On: 17-Mar-2015 Intent Layton Melendez DOa A Comments: lot: [id number]: 10/27site/route: L del/IMamt: 1mLVIS signed when applicableTracy TECHNOLOGY ADVISOR PNEUM VAC ADLT/IMUMNOSPR, SBC/INTRM On: 30-Dec-2014 Intent ([id number])By: Layton Melendez DOa A Comments: PNUEMOlot:[id number]:1*13*17site:Rt deltoidroute:IMdose:.5mlDEMICK, SMA B 12 Injection, 1000 mcg (J3420)By: On: 30-Dec-2014 Intent Maylin Melendez DO Comments: B12lot:[id number]:05/27site: LT deltoidROute: IMdose:1ml ADMINISTRATION OF INFLUENZA VIRUS On: 21-Oct-2014 Intent VACCINE (G0008)By: Maylin Melendez DO FLU VAC, SPLIT, >3 YEARS, INTRAMUSC On: 21-Oct-2014 Intent ([id number])By: Maylin Melendez DO Comments: lot: [id number]: 08/09/16site/route: L del/IMamt: 1mLVIS signed when applicableChelsea, TECHNOLOGY ADVISOR MAMMOGRAM, SCREENING, BOTH BREAST On: 05-Oct-2014 Intent ([id number])By: Maylin Melendez DO Cartoid DopplerBy: Maylin Melendez DO On: 05-Oct-2014 Intent B 12 Injection, 1000 mcg (J3420)By: On: 05-Oct-2014 Intent Maylin Melendez DO Comments: Lot:[id number]:Route:IMSite:R deltoidDose: 1 mLgiven by: Adalgisa Sexton CMA B 12 Injection, 1000 mcg (J3420)By: On: 01-Sep-2014 Intent Adalgisa Sexton Comments: Lot:[id number]:12.26Route:IMSite:R deltoidDose: 1 mLgiven by: Adalgisa Sexton CMA B 12 Injection, 1000 mcg (J3420)By: On: 26-May-2014 Intent Adalgisa Sexton Comments: lot:[id number]:04/25route:IMdose:1MLSite:R deltoidgiven by: ANS B 12 Injection, 1000 mcg (J3420)By: On: 11-Apr-2014 Intent Kaci Gomez LPN Comments: lot: [id number]: 11/25Dose: 1,000 mcgSite: l dltdLocation; IMby: Solu -Medrol Injection, 125 mg On: 22-Feb-2014 Intent (J2930)By: Maylin Melendez DO Comments: [id number] 6.73926 mgleft gmIMas, V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 OF PRODUCT MARKETING Solu -Medrol Injection, 125 mg On: 31-Jan-2014 Intent (J2930)By: Sherrie Amor CNP Comments: lot [id number] 06/2016location R hiproute imgiven by - msmith VIS and/or ABN signed B 12 Injection, 1000 mcg (J3420)By: On: 21-Jan-2014 Intent Maylin Melendez DO Comments: lot [id number] 05/2015location L armroute imgiven by - msmith VIS and/or ABN signed Aerosol Treatment ([id number])By: Mt On: 14-Jan-2014 Intent Sherrie OJEDA Radiology - ChestBy: Mt OJEDA, On: 14-Jan-2014 Intent Sherrie Beck Comments: stat call results to Dr Uriostegui is director of application development EKG ([id number])By: Sherrie Amor CNP On: 14-Jan-2014 Intent Comments: looks same as before No new ST -t wave changes ADMINISTRATION OF INFLUENZA VIRUS On: 29-Nov-2013 Intent VACCINE (G0008)By: Maylin Melendez DO Comments: Lot #[id number]-L dltd, IMDose prefilled syringegiven by:LORIN laurent and ABN signed FLU VAC, SPLIT, >3 YEARS, INTRAMUSC On: 29-Nov-2013 Intent ([id number])By: Maylin Melendez DO B 12 Injection, 1000 mcg (J3420)By: On: 29-Nov-2013 Intent Maylin Melendez DO Comments: given, R dltd, Im - see flowsheet for lot and exp Radiology - Knee - Left - Weight On: 06-Sep-2013 Intent BearingBy: Malyin Melendez DO MAMMOGRAM, SCREENING, BOTH BREAST On: 18-Aug-2013 Intent ([id number])By: Maylin Melendez DO B 12 Injection, 1000 mcg (J3420)By: On: 18-Aug-2013 Intent Maylin Melendez DO Aerosol Treatment ([id number])By: Mt On: 16-Jul-2013 Intent Sherrie OJEDA Aerosol Treatment ([id number])By: Mt On: 09-Jul-2013 Intent Sherrie OJEDA Radiology - ChestBy: Mt OJEDA, On: 09-Jul-2013 Intent Sherrie Beck Eprescribed prescriptions On: 09-Jul-2013 Intent (G8553)By: Sherrie Amor CNP B 12 Injection, 1000 mcg (J3420)By: On: 24-Jun-2013 Intent Visit, Nurse Eprescribed prescriptions On: 24-Jun-2013 Intent (G8553)By: Visit, Nurse Solu- Medrol Injection, 125mg On: 21-Jun-2013 Intent (J2930)By: Sherrie Amor CNPid DopplerBy: Maylin Melendez DO On: 05-May-2013 Intent Eprescribed prescriptions On: 05-May-2013 Intent (G8553)By: Maylin Melendez DO B 12 Injection, 1000 mcg (J3420)By: On: 27-Apr-2013 Intent Visit, Nurse Comments: Lot:[id number]:12/25Dose:1mlRoute:IMSite:l armGiven By:SASKIA signed Aerosol Treatment ([id number])By: Moody On: 17-Feb-2013 Nia Amaya DO, DO, Kathleen Comments: more q/e less cough -- ok to use rescue inhaler prn not moer than bid with a fib -- if needs ansd worsen go to ER-- pulse reguar after treatment Spirometry ([id number])By: Moody MCFARLAND, On: 17-Feb-2013 Intent Nia Reed DO Comments: mild restriction -- stable Solu- Medrol Injection, 125mg On: 17-Feb-2013 Intent (J2930)By: Nia Uriostegui DO Comments: lot: [id number]: 5/16site/route: RGM/IMamt: 2mLVIS signed when applicableMONSTER Molina DO, Kathleen Eprescribed prescriptions On: 17-Feb-2013 Intent (G8553)By: Nia Uriostegui DO, DO, Kathleen EKG ([id number])By: Maylin Melendez DO On: 12-Jan-2013 Intent Comments: ekg showed normal sinus rhythym, left axis, no acute st/t wave changes Pelvic and Breast, Medicare On: 12-Jan-2013 Intent (G0101)By: Natalya Kohli Eprescribed prescriptions On: 18-Dec-2012 Intent (G8553)By: Maylin Melendez DO FLU VAC, SPLIT, >3 YEARS, INTRAMUSC On: 18-Dec-2012 Intent ([id number])By: Natalya Kohli Comments: Lot #:[id number] date:mount given:0.5mlRoute: IMSite given: L dltdVIS and ABN signedGiven by: CHILO Gillespie ADMINISTRATION OF INFLUENZA VIRUS On: 18-Dec-2012 Intent VACCINE (G0008)By: Natalya Kohli B 12 Injection, 1000 mcg (J3420)By: On: 01-Dec-2012 Intent Tracy Barnes Comments: Lot:[id number]:09/24Dose:1mlRoute:IMSite:l armGiven By:SASKIA signed Eprescribed prescriptions On: 02-Nov-2012 Intent (G8553)By: Sherrie Amor CNP Radiology - Foot - RightBy: Mt On: 02-Nov-2012 Intent Sherrie OJEDA B 12 Injection, 1000 mcg (J3420)By: On: 19-Oct-2012 Intent Tracy Barnes Comments: lot: [id number]: 09/23site/route: L deltoid/IMamt: 1mLVIS signed when applicableMONSTER Molina B 12 Injection, 1000 mcg (J3420)By: On: 31-Aug-2012 Intent Maylin Melendez DO Comments: Lot: [id number]: [id number]: 1000mcg/1mlRoute: IMSite: L deltoidGiven by: KASIA Samson Eprescribed prescriptions On: 31-Aug-2012 Intent (G8553)By: Natalya Kohli Nuclear Medicine - Other - On: 18-Aug-2012 Intent Vertebral AssessmentBy: Al MCFARLAND, Comments: Lela Sherman DXA, BONE DENSITY, AXIAL SKELETON On: 22-Jun-2012 Intent ([id number])By: Maylin Melendez DO MAMMOGRAM, SCREENING, BOTH BREASTS On: 22-Jun-2012 Intent (95566)By: Maylin Melendez DO B 12 Injection, 1000 mcg (J3420)By: On: 15-Jun-2012 Intent Tracy Barnes Comments: lot: [id number]: 12/24site/route: R deltoid/IMamt: 1,000mcgVIS signed when applicableChelsea, TECHNOLOGY ADVISOR Eprescribed prescriptions On: 17-Apr-2012 Intent (G8553)By: Natalya Kohli 12 Injection, 1000 mcg (J3420)By: On: 13-Apr-2012 Intent Ramona Vásquez Comments: Lot:[id number]:01/23Dose:1mlRoute:IMSite:r armGiven By:SASKIA signed Eprescribed prescriptions On: 27-Mar-2012 Intent (G8553)By: Susie Lopez LPN FLU VAC, SPLIT, >3 YEARS, INTRAMUSC On: 17-Jan-2012 Intent (95990)By: Maylin Melendez DO Comments: Lot #[id number]/13Site-left deltoidgiven by: Emili Stark LPN ADMINISTRATION OF INFLUENZA VIRUS On: 17-Jan-2012 Intent VACCINE (G0008)By: Maylin Melendez DO Eprescribed prescriptions On: 17-Jan-2012 Intent (G8553)By: Natalya Kohli 12 Injection, 1000 mcg (J3420)By: On: 31-Dec-2011 Intent Maylin Melendez DO Comments: Lot:[id number]:Dose:1mlRoute:IMSite:L armGiven By:JACQUIE Aerosol Treatment ([id number])By: Cimilliea On: 24-Dec-2011 Intent RUSTYSherrie B 12 Injection, 1000 mcg (J3420)By: On: 29-Oct-2011 Intent Natalya Kohli Comments: Lot #Exp-11.13Site-R arm, IMDose-prefilled syringegiven by:RAHUL Malloy signed CT - ChestBy: Maylin Melendez DO On: 24-Sep-[address] - ChestBy: Maylin Melendez DO A On: 24-Sep-2011 Intent Holter Monitor 24 hrsBy: Al MCFARLAND, On: 17-Sep-2011 Intent Maylin A Comments: please do this week and copy to dr betsy HUTCHINSONG ([id number])By: Maylin Melendez DO On: 17-Sep-2011 Intent Comments: ekg- sinus with muptiple pvcs - left axis B 12 Injection, 1000 mcg (J3420)By: On: 17-Sep-2011 Intent Natalya Kohli Comments: Lot #:[id number] date:mount given:1mlRoute: IMSite given:left deltoidGiven by: CHILO Gillespie INJECTION, VITAMIN B-12 On: 22-Jul-2011 Intent CYANOCOBALAMIN, UP TO 1000 MCG Comments: Lot #[id number]-02/22Site-left deltoidDose- 1 mlgiven by: Emili Stark LPN (Special Coverage Instructions Apply. See CIM: 45-4 and MCM: 2049) (J3420)By: Carol Stark LPN B 12 Injection, 1000 mcg (J3420)By: On: 23-May-2011 Intent Mast Ericka TELLEZ Comments: Lot #: [id number] date: 12/23Amount given: 1 mlRoute: IMSite given: right deltoidGiven by: GEOFF Salcido MAMMOGRAM, SCREENING, BOTH BREASTS On: 14-May-2011 Intent (88543)By: Maylin Melendez DO CT - ChestBy: Maylin Melendez DO On: 14-May-2011 Intent Comments: due next month B 12 Injection, 1000 mcg (J3420)By: On: 16-Apr-2011 Intent Mast Ericka TELLEZ Comments: Lot #: [id number] date: given: 1000 mcg/mlRoute: IMSite given: right deltoidGiven by: GEOFF Salcido B 12 Injection, 1000 mcg (J3420)By: On: 18-Mar-2011 Intent Carol Stark LPN Comments: Lot #[id number]-01/21Site-left deltoidDose-1 mlgiven by: Emili Stark LPN B 12 Injection, 1000 mcg (J3420)By: On: 15-Feb-2011 Intent Carol Reina LPN Comments: Lot #[id number]-7.13Site-R arm, IMDose 1mlgiven by:Carol Paniagua 12 Injection, 1000 mcg (J3420)By: On: 14-Jan-2011 Intent Natalya Kohli Comments: Lot:0816Exp:01/21Amt:1mlRoute:IMSite:left deltGiven By: KASIA Hightower Eprescribed prescriptions On: 14-Jan-2011 Intent (G8553)By: Maylin Melendez DO CT - ChestBy: Maylin Melendez DO On: 14-Jan-2011 Intent B 12 Injection, 1000 mcg (J3420)By: On: 21-Nov-2010 Intent Long Carol PEDROZA Comments: Lot #[id number]-11.21Site-Right dltd, IMDose 1mlgiven by:KASIA Medina Solu -Medrol Injection, 125 mg On: 24-Aug-2010 Intent (J2930)By: Sherrie Amor CNP Comments: Lot #[id number]-5.13Site-R hip, IMDose 125mg, 2 mlgiven by:MARTITA Aerosol Treatment (57716)By: Mt On: 24-Aug-2010 Intent Sherrie OJEDA Pulse Oximetry (36516)By: Keesha RN, On: 24-Aug-2010 Intent Ericka Spirometry (63714)By: Al MCFARLAND, On: 03-Aug-2010 Intent Maylin Sherman Comments: good efffort and curve normal EKG (37048)By: Maylin Melendez DO On: 03-Aug-2010 Intent Comments: ekg showed normal sinus rhythym, normal axis, no acute st/t wave changes poor r wave progression Radiology - Chest- PA and LatBy: On: 03-Aug-2010 Intent Maylin Melendez DO B 12 Injection, 1000 mcg (J3420)By: On: 11-Jul-2010 Intent Carol Stark LPN Comments: Lot #[id number]-01/20Site-left deltoidDose-1 mlgiven by: Emili Stark LPN TD Injection , IM (20990)By: Al On: 20-Apr-2010 Intent Maylin MCFARLAND Comments: Lot #[id number]-5/12Site-L dtd, IMDose prefilledgiven by:MARTITA B 12 Injection, 1000 mcg (J3420)By: On: 04-Apr-2010 Intent Carol Stark LPN Comments: Lot #[id number]-12Site-left deltoidDose-1 mlgiven by:MAYRA B 12 Injection, 1000 mcg (J3420)By: On: 16-Jan-2010 Intent Carol Reina LPN Comments: Lot #[id number]-7/11Site-R kpjTndp0qhmqsly by:MARTITA B 12 Injection, 1000 mcg (J3420)By: On: 12-Dec-2009 Intent Carol Stark LPN Comments: Lot #[id number]-06/21Site-left deltoidDose-1 mlgiven by:MAYRA FLU VAC, SPLIT, >3 YEARS, INTRAMUSC On: 14-Nov-2009 Intent (58522)By: Natalya Kohli ADMINISTRATION OF INFLUENZA VIRUS On: 14-Nov-2009 Intent VACCINE (G0008)By: Seun, Comments: Lot #: [id number] date:mount given: 0.5 mlRoute: IMSite given: left deltoid Given by: Lane Romeo, RN Natalya DXA, BONE DENSITY, AXIAL SKELETON On: 01-Nov-2009 Intent (69655)By: Maylin Melendez DO MAMMOGRAM, SCREENING, BOTH BREASTS On: 01-Nov-2009 Intent (01937)By: Maylin Melendez DO ADMINISTRATION OF PNEUMOCOCCAL On: 01-Nov-2009 Intent VACCINE (G0009)By: Maylin Melendez DO PNEUM VAC ADLT/IMUMNOSPR, SBC/INTRM On: 01-Nov-2009 Intent (44082)By: Maylin Melendez DO B 12 Injection, 1000 mcg (J3420)By: On: 01-Nov-2009 Intent Carol Reina LPN Comments: Lot #[id number]-06/21Site-L dltdDose 30m/mlgiven by:KASIA GONZALES Pneumovax (28538)By: Nuno PEDROZA, On: 01-Nov-2009 Intent Carol Mead Comments: Lot #[id number]-August 2010Site-R dltdDose 0.5mlgiven by:KASIA ANDERS B 12 Injection, 1000 mcg (J3420)By: On: 25-Aug-2009 Intent Carol Stark LPN Comments: Lot #[id number]-2/12Site-left deltoidDose-1 mlgiven by:[facility] B 12 Injection, 1000 mcg (J3420)By: On: 13-Jul-2009 Intent Monik Rushing Comments: Lot #[id number]-01/2011Site-left ntexykaKggh6297jmv/1mlgiven by Diana Rushing LPN CT - ChestBy: Fast DO, Maylin A On: 05-Jun-2009 Intent Spirometry (14288)By: Seun, On: 05-Jun-2009 Intent Natalya Comments: goo deffort and curve mild small airway obst B 12 Injection, 1000 mcg (J3420)By: On: 24-May-2009 Intent ElyusaCrol wright LPN Comments: Lot #[id number]-09/20Site-right deltoidDose-1 mlgiven by:[facility] Radiology - Knee - Right - Weight On: 23-Dec-2008 Intent BearingBy: Fast DO, Maylin A B 12 Injection, 1000 mcg (J3420)By: On: 23-Dec-2008 Intent Natalya Kohli Comments: Lot #:[id number] date:mount given:1mlRoute: IMSite given:left deltoidGiven by: CHILO Gillespie Aerosol Treatment (16391)By: On: 08-Nov-2008 Intent Natalya Carter Comments: post treatment breath sounds clear bilat. pt. states feels breathing better. Pulse Oximetry (80574)By: Raul On: 08-Nov-2008 Intent Natalya Comments: 95% CT - ChestBy: Al DOLatyona A On: 03-Oct-2008 Intent Comments: november Ultrasound - GallbladderBy: Taylaesa On: 15-Sep-2008 Intent RUSTY Carlotta Ultrasound - Abdomen Complete & On: 15-Sep-2008 Intent PelvisBy: Ciesa RUSTY Carlotta B 12 Injection, 1000 mcg (J3420)By: On: 07-Sep-2008 Intent Mya Barahona Comments: lot #:[id number]:04/2010site:right deltoidGiven by CHILO Roque B 12 Injection, 1000 mcg (J3420)By: On: 02-Aug-2008 Intent Layton Melendez DOa A Comments: 1ml given im lt mamie lot [id number] exp -10 B 12 Injection, 1000 mcg (J3420)By: On: 05-Jul-2008 Intent Fast DO, Maylin A Comments: Lot #[id number]-12/2009Site-left kwojcxpEvhn4502dll/1mlgiven by Diana Rushing LPN CT - Brain/HeadBy: Fast DO, Maylin A On: 31-May-2008 Intent EKG (73681)By: Al DO Maylin A On: 10-May-2008 Intent Comments: ekg showed normal sinus rhythym, leftaxis, nonspecific t changges unchanged fromprevious Echo CompleteBy: Fast DO, Maylin A On: 10-May-2008 Intent PFT - CompleteBy: Fast DO, Maylin A On: 10-May-2008 Intent Pulse Oximetry (38715)By: Al MCFARLAND, On: 10-May-2008 Intent Maylin A Comments: 95 Spirometry (19818)By: Al MCFARLAND, On: 10-May-2008 Intent Maylin A Comments: good effort and curve mild restriction CT - ChestBy: Fast DO, Maylin A On: 10-May-2008 Intent Bio Z (74580)By: Al MCFARLAND Maylin A On: 10-May-2008 Intent Comments: numbers loog good INJECTION, VITAMIN B-12 On: 10-May-2008 Intent CYANOCOBALAMIN, UP TO 1000 MCG (Special Coverage Instructions Apply. See CIM: 45-4 and MCM: 2048) (J3420)By: Natalya Kohli B 12 Injection, 1000 mcg (J3420)By: On: 08-Apr-2008 Intent Ericka Thao RN B 12 Injection, 1000 mcg (J3420)By: On: 11-Mar-2008 Intent Susanna Masterson Comments: Lot #[id number] date:mount given:1mlSite given: left deltoidGiven by:Leo. INJECTION, VITAMIN B-12 On: 01-Feb-2008 Intent CYANOCOBALAMIN, UP TO 1000 MCG (Special Coverage Instructions Apply. See CIM: 45-4 and MCM: 2048) (J3420)By: Adriane Muhammad LPN B 12 Injection, 1000 mcg (J3420)By: On: 01-Jan-2008 Intent Monik Rushing Comments: Lot #[id number]-5/10Site-left zcrurwwGwtj7ierewef by Diana Rushing LPN INJECTION, VITAMIN B-12 On: 03-Dec-2007 Intent CYANOCOBALAMIN, UP TO 1000 MCG Comments: injection given in left deltoid, Ptolerated welllo # [id number] 06/19 (Special Coverage Instructions Apply. See CIM: 45-4 and MCM: 2048) (J3420)By: Irais Monreal B 12 Injection, 1000 mcg (J3420)By: On: 26-Nov-2007 Intent Monik Rushing Comments: Lot #[id number]-06/19Site-left piytapaYcfj8uwxozyy by Diana Rushing LPN INJECTION, VITAMIN B-12 On: 19-Nov-2007 Intent CYANOCOBALAMIN, UP TO 1000 MCG (Special Coverage Instructions Apply. See CIM: 45-4 and MCM: 2048) (J3420)By: Roberto Muhammad LPNsie INJECTION, VITAMIN B-12 On: 12-Nov-2007 Intent CYANOCOBALAMIN, UP TO 1000 MCG (Special Coverage Instructions Apply. See CIM: 45-4 and MCM: 2048) (J3420)By: Adriane Muhammad LPN B 12 Injection, 1000 mcg (J3420)By: On: 05-Nov-2007 Intent Adriane Muhammad LPN Cartoid DopplerBy: Maylin Melendez DO On: 30-Oct-2007 Intent Spirometry (50808)By: Al MCFARLAND, On: 30-Oct-2007 Intent Maylin Sherman Comments: good effort and curve- some small airway decrease Radiology - Chest- PA and LatBy: On: 30-Oct-2007 Intent Maylin Melendez DO DXA, BONE DENSITY, AXIAL SKELETON On: 24-Jul-2007 Intent (18567)By: Maylin Melendez DO Comments: postmenopausal without estrogen MAMMOGRAM, SCREENING, BOTH BREASTS On: 24-Jul-2007 Intent (37420)By: Maylin Melendez DO Radiology - Knee - Right - Weight On: 15-Jun-2007 Intent BearingBy: Maylin Melendez DO Comments: call results CT - ChestBy: Maylin Melendez DO On: 03-Apr-[address] - ChestBy: Maylin Melendez DO On: 15-Aug-2006 Intent Spirometry (98726)By: Al MCFARLAND, On: 15-Aug-2006 Intent Maylin A Comments: good effort and curve- mild obstruction EKG (71595)By: Natalya Kohli On: 15-Aug-2006 Intent Comments: ekg showed normal sinus rhythym, normal axis, no acute st/t wave changes Radiology - ChestBy: LEE OJEDA, On: 25-Jun-2006 Intent PAMELA Comments: PA and LAT Solu- Medrol Injection, 125mg On: 25-Jun-2006 Intent (J2930)By: PAMELA HOWARD CNP Pulse Oximetry (54575)By: LEE On: 25-Jun-2006 Intent PAMELA OJEDA Comments: pt tolerated well. ins waiver signed Aerosol Treatment ([id number])By: LEE On: 25-Jun-2006 Intent PAMELA OJEDA Comments: ins wwaiver signed, pt tolerated well Spirometry (10679)By: Al MCFARLAND, On: 14-May-2006 Intent Maylin Sherman Comments: good effort and curve-mild obstruction ADMINISTRATION OF PNEUMOCOCCAL On: 11-Feb-2006 Intent VACCINE (G0009)By: ULYSSES Quiñones PNEUM VAC ADLT/IMUMNOSPR, SBC/INTRM On: 11-Feb-2006 Intent (71042)By: ULYSSES Quiñones Bio Z (89797)By: Maylin Melendez DO On: 11-Feb-2006 Intent Comments: bp was 132/65- cardiac output, svr and thoracic fluid content is normal- will hold on med changes PNEUM VAC ADLT/IMUMNOSPR, SBC/INTRM On: 11-Feb-2006 Intent (32460)By: Maylin Melendez DO ADMINISTRATION OF PNEUMOCOCCAL On: 11-Feb-2006 Intent VACCINE (G0009)By: Maylin Melendez DO MAMMOGRAM, SCREENING, BOTH BREASTS On: 16-Oct-2005 Intent (76041)By: Maylin Melendez DO Planned Medications INJECTION, METHYLPREDNISOLONE SODIUM SUCCINATE, UP TO 125 MG Ordered: 06-Jan-2018 Pending Ciesa CAKE INSPECTOR, Carlotta INJECTION, METHYLPREDNISOLONE SODIUM SUCCINATE, UP TO 125 MG Ordered: 21-Jun-2013 Pending Ciesa CAKE INSPECTOR, Carlotta INJECTION, METHYLPREDNISOLONE SODIUM SUCCINATE, UP TO 125 MG Ordered: 31-Jan-2014 Pending Ciesa CAKE INSPECTOR, Carlotta INJECTION, METHYLPREDNISOLONE SODIUM SUCCINATE, UP TO 125 MG Ordered: 17-Feb-2013 Pending Moody DONia DO, Nia INJECTION, METHYLPREDNISOLONE SODIUM SUCCINATE, UP TO 125 MG Ordered: 24-Aug-2010 Pending Sherrie Amor CNP E INJECTION, METHYLPREDNISOLONE SODIUM SUCCINATE, UP TO 125 MG Ordered: 22-Feb-2014 Pending Fast DO, Maylin A INJECTION, METHYLPREDNISOLONE SODIUM SUCCINATE, UP TO 125 MG Ordered: 27-Feb-2016 Pending Balbir Cramer MD INJECTION, METHYLPREDNISOLONE SODIUM SUCCINATE, UP TO 125 MG Ordered: 16-Jan-2016 Pending Balbir Cramer MD Vitamin B-12 1000 MCG/ML Injection Solution Ordered: 11-Apr-2014 Pending Kaci Gomez LPN Vitamin B-12 1000 MCG/ML Injection Solution Ordered: 26-May-2014 Pending Tristen Sextonison Vitamin B-12 1000 MCG/ML Injection Solution Ordered: 01-Sep-2014 Pending Darshan Adalgisa Vitamin B-12 1000 MCG/ML Injection Solution Ordered: 05-Oct-2014 Pending Fast DO, Maylin A Vitamin B-12 1000 MCG/ML Injection Solution Ordered: 30-Dec-2014 Pending Fast DO, Maylin A Vitamin B-12 1000 MCG/ML Injection Solution Ordered: 22-May-2015 Pending Fast DO, Maylin A Vitamin B-12 1000 MCG/ML Injection Solution Ordered: 21-Jan-2014 Pending Fast DO, Maylin A Vitamin B-12 1000 MCG/ML Injection Solution Ordered: 11-Oct-2015 Pending Balbir Cramer MD Vitamin B-12 1000 MCG/ML Injection Solution Ordered: 16-Jan-2016 Pending Balbir Cramer MD Vitamin B-12 1000 MCG/ML Injection Solution Ordered: 24-Apr-2016 Pending Moody DO, Nia Modoy DO, Nia Vitamin B-12 1000 MCG/ML Injection Solution Ordered: 08-Aug-2016 Pending Moody DO, Nia Moody DO, Nia Vitamin B-12 1000 MCG/ML Injection Solution Ordered: 04-Nov-2016 Pending Moody DO, Nia Moody DO, Nia Vitamin B-12 1000 MCG/ML Injection Solution Ordered: 29-Nov-2016 Pending Moody DO, Nia Moody DO, Nia Vitamin B-12 1000 MCG/ML Injection Solution Ordered: 12-Feb-2017 Pending Moody DOSelamNia Moody DO, Nia Vitamin B-12 1000 MCG/ML Injection Solution Ordered: 28-May-2017 Pending Moody DO, Nia Moody DO, Nia Vitamin B-12 1000 MCG/ML Injection Solution Ordered: 17-Mar-2015 Pending Fast DO, Maylin A Vitamin B-12 1000 MCG/ML Injection Solution Ordered: 29-Nov-2013 Pending Fast DO, Maylin A Vitamin B-12 1000 MCG/ML Injection Solution Ordered: 24-Jun-2013 Pending Nurse Mj Vitamin B-12 1000 MCG/ML Injection Solution Ordered: 15-Dec-2017 Pending Moody DO, Nia Moody DO, Nia Vitamin B-12 1000 MCG/ML Injection Solution Ordered: 16-Jan-2010 Pending Long V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 OF PRODUCT MARKETING, Carol L Vitamin B-12 1000 MCG/ML Injection Solution Ordered: 04-Apr-2010 Pending Hluszti V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 OF PRODUCT MARKETING, Carol Vitamin B-12 1000 MCG/ML Injection Solution Ordered: 11-Jul-2010 Pending Hluszti V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 OF PRODUCT MARKETING, Carol Vitamin B-12 1000 MCG/ML Injection Solution Ordered: 21-Nov-2010 Pending Long V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 OF PRODUCT MARKETING, Carol L Vitamin B-12 1000 MCG/ML Injection Solution Ordered: 14-Jan-2011 Pending Natalya Kohli Vitamin B-12 1000 MCG/ML Injection Solution Ordered: 15-Feb-2011 Pending Long V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 OF PRODUCT MARKETING, Carol L Vitamin B-12 1000 MCG/ML Injection Solution Ordered: 18-Mar-2011 Pending Hlusadriana CRUZN, Carol Vitamin B-12 1000 MCG/ML Injection Solution Ordered: 16-Apr-2011 Pending Ericka Thao RN Vitamin B-12 1000 MCG/ML Injection Solution Ordered: 23-May-2011 Pending Mast RNEricka Vitamin B-12 1000 MCG/ML Injection Solution Ordered: 22-Jul-2011 Pending Hluszbetty V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 OF PRODUCT MARKETING, Carol Vitamin B-12 1000 MCG/ML Injection Solution Ordered: 17-Sep-2011 Pending Natalya Kohli Vitamin B-12 1000 MCG/ML Injection Solution Ordered: 29-Oct-2011 Pending Tiffany Kohlinifer Vitamin B-12 1000 MCG/ML Injection Solution Ordered: 31-Dec-2011 Pending Fast DO, Maylin A Vitamin B-12 1000 MCG/ML Injection Solution Ordered: 13-Apr-2012 Pending Ramona Vásquez Vitamin B-12 1000 MCG/ML Injection Solution Ordered: 15-Jun-2012 Pending Manjovank, Tracy Vitamin B-12 1000 MCG/ML Injection Solution Ordered: 31-Aug-2012 Pending Fast DO, Maylin A Vitamin B-12 1000 MCG/ML Injection Solution Ordered: 19-Oct-2012 Pending Manchak, Tracy Vitamin B-12 1000 MCG/ML Injection Solution Ordered: 01-Dec-2012 Pending Manchak, Tracy Vitamin B-12 1000 MCG/ML Injection Solution Ordered: 27-Apr-2013 Pending Nurse Mj Vitamin B-12 1000 MCG/ML Injection Solution Ordered: 18-Aug-2013 Pending Fast DO, Maylin A Vitamin B-12 1000 MCG/ML Injection Solution Ordered: 12-Dec-2009 Pending Carol Stark LPN Instructions Name Dates Details Cough : How to access health information online Indication: Cough Cough : How to access health information online - Detail Indication: Cough Cough : Patient Instructions Indication: Cough Nonsmoker : How to access health information online Indication: Nonsmoker Nonsmoker : How to access health information online - Detail Indication: Nonsmoker Nonsmoker : Patient Instructions Indication: Nonsmoker Diabetes mellitus type II, controlled : How to access health information online Indication: Diabetes mellitus type II, controlled Diabetes mellitus type II, controlled : How to access health information online - Detail Indication: Diabetes mellitus type II, controlled Diabetes mellitus type II, controlled : Patient Instructions Indication: Diabetes mellitus type II, controlled Nonsmoker : How to access health information online Indication: Nonsmoker Nonsmoker : How to access health information online - Detail Indication: Nonsmoker Nonsmoker : Patient Instructions Indication: Nonsmoker Nonsmoker : How to access health information online Indication: Nonsmoker Nonsmoker : How to access health information online - Detail Indication: Nonsmoker Nonsmoker : Patient Instructions Indication: Nonsmoker Nonsmoker : How to access health information online Indication: Nonsmoker Nonsmoker : How to access health information online - Detail Indication: Nonsmoker Nonsmoker : Patient Instructions Indication: Nonsmoker Nonsmoker : How to access health information online Indication: Nonsmoker Nonsmoker : How to access health information online - Detail Indication: Nonsmoker Nonsmoker : Patient Instructions Indication: Nonsmoker Type 2 diabetes mellitus, uncontrolled : How to access health information online Indication: Type 2 diabetes mellitus, uncontrolled Type 2 diabetes mellitus, uncontrolled : How to access health information online - Detail Indication: Type 2 diabetes mellitus, uncontrolled Type 2 diabetes mellitus, uncontrolled : Patient Instructions Indication: Type 2 diabetes mellitus, uncontrolled Nonsmoker : How to access health information online Indication: Nonsmoker Nonsmoker : How to access health information online - Detail Indication: Nonsmoker Nonsmoker : Patient Instructions Indication: Nonsmoker Type 2 diabetes mellitus, uncontrolled : How to access health information online Indication: Type 2 diabetes mellitus, uncontrolled Type 2 diabetes mellitus, uncontrolled : How to access health information online - Detail Indication: Type 2 diabetes mellitus, uncontrolled Type 2 diabetes mellitus, uncontrolled : Patient Instructions Indication: Type 2 diabetes mellitus, uncontrolled BMI 33.0-33.9,adult : How to access health information online Indication: BMI 33.0-33.9,adult BMI 33.0-33.9,adult : How to access health information online - Detail Indication: BMI 33.0-33.9,adult BMI 33.0-33.9,adult : Patient Instructions Indication: BMI 33.0-33.9,adult Type 2 diabetes mellitus, uncontrolled : How to access health information online Indication: Type 2 diabetes mellitus, uncontrolled Type 2 diabetes mellitus, uncontrolled : How to access health information online - Detail Indication: Type 2 diabetes mellitus, uncontrolled Type 2 diabetes mellitus, uncontrolled : Patient Instructions Indication: Type 2 diabetes mellitus, uncontrolled Type 2 diabetes mellitus, uncontrolled : How to access health information online Indication: Type 2 diabetes mellitus, uncontrolled Type 2 diabetes mellitus, uncontrolled : How to access health information online - Detail Indication: Type 2 diabetes mellitus, uncontrolled Type 2 diabetes mellitus, uncontrolled : Patient Instructions Indication: Type 2 diabetes mellitus, uncontrolled Type 2 diabetes mellitus, uncontrolled : How to access health information online Indication: Type 2 diabetes mellitus, uncontrolled Type 2 diabetes mellitus, uncontrolled : How to access health information online - Detail Indication: Type 2 diabetes mellitus, uncontrolled Type 2 diabetes mellitus, uncontrolled : Patient Instructions Indication: Type 2 diabetes mellitus, uncontrolled Type 2 diabetes mellitus, uncontrolled : How to access health information online Indication: Type 2 diabetes mellitus, uncontrolled Type 2 diabetes mellitus, uncontrolled : How to access health information online - Detail Indication: Type 2 diabetes mellitus, uncontrolled Type 2 diabetes mellitus, uncontrolled : Patient Instructions Indication: Type 2 diabetes mellitus, uncontrolled Type 2 diabetes mellitus, uncontrolled : How to access health information online Indication: Type 2 diabetes mellitus, uncontrolled Type 2 diabetes mellitus, uncontrolled : How to access health information online - Detail Indication: Type 2 diabetes mellitus, uncontrolled Type 2 diabetes mellitus, uncontrolled : Patient Instructions Indication: Type 2 diabetes mellitus, uncontrolled Other vitamin B12 deficiency anemia : How to access health information online Indication: Other vitamin B12 deficiency anemia Other vitamin B12 deficiency anemia : How to access health information online - Detail Indication: Other vitamin B12 deficiency anemia Other vitamin B12 deficiency anemia : Patient Instructions Indication: Other vitamin B12 deficiency anemia Type 2 diabetes mellitus, uncontrolled : How to access health information online Indication: Type 2 diabetes mellitus, uncontrolled Type 2 diabetes mellitus, uncontrolled : How to access health information online - Detail Indication: Type 2 diabetes mellitus, uncontrolled Type 2 diabetes mellitus, uncontrolled : Patient Instructions Indication: Type 2 diabetes mellitus, uncontrolled Type 2 diabetes mellitus, uncontrolled : How to access health information online - Detail Indication: Type 2 diabetes mellitus, uncontrolled Type 2 diabetes mellitus, uncontrolled : How to access health information online Indication: Type 2 diabetes mellitus, uncontrolled Type 2 diabetes mellitus, uncontrolled : Patient Instructions Indication: Type 2 diabetes mellitus, uncontrolled Type 2 diabetes mellitus, uncontrolled : How to access health information online Indication: Type 2 diabetes mellitus, uncontrolled Type 2 diabetes mellitus, uncontrolled : How to access health information online - Detail Indication: Type 2 diabetes mellitus, uncontrolled Type 2 diabetes mellitus, uncontrolled : Patient Instructions Indication: Type 2 diabetes mellitus, uncontrolled Hypertension : Patient Instructions Indication: Hypertension Type 2 diabetes mellitus, uncontrolled : How to access health information online Indication: Type 2 diabetes mellitus, uncontrolled Type 2 diabetes mellitus, uncontrolled : How to access health information online - Detail Indication: Type 2 diabetes mellitus, uncontrolled Type 2 diabetes mellitus, uncontrolled : Patient Instructions Indication: Type 2 diabetes mellitus, uncontrolled Type 2 diabetes mellitus, uncontrolled : Patient Instructions Indication: Type 2 diabetes mellitus, uncontrolled Asthma : Patient Instructions Indication: Asthma Type 2 diabetes mellitus, uncontrolled : How to access health information online Indication: Type 2 diabetes mellitus, uncontrolled Type 2 diabetes mellitus, uncontrolled : How to access health information online - Detail Indication: Type 2 diabetes mellitus, uncontrolled Type 2 diabetes mellitus, uncontrolled : Patient Instructions Indication: Type 2 diabetes mellitus, uncontrolled Cough : How to access health information online Indication: Cough Cough : How to access health information online - Detail Indication: Cough Cough : Patient Instructions Indication: Cough Cough : Patient Instructions Indication: Cough Unspecified asthma with (acute) exacerbation : How to access health information online - Detail Indication: Unspecified asthma with (acute) exacerbation Unspecified asthma with (acute) exacerbation : Patient Instructions Indication: Unspecified asthma with (acute) exacerbation Benign neoplasm of cerebral meninges : Patient Instructions Indication: 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 : Patient Instructions Indication: Benign neoplasm of cerebral meninges Type 2 diabetes mellitus, uncontrolled : How to access health information online Indication: Type 2 diabetes mellitus, uncontrolled Type 2 diabetes mellitus, uncontrolled : How to access health information online - Detail Indication: Type 2 diabetes mellitus, uncontrolled Type 2 diabetes mellitus, uncontrolled : Patient Instructions Indication: Type 2 diabetes mellitus, uncontrolled Knee pain : How to access health information online Indication: Knee pain Knee pain : How to access health information online - Detail Indication: Knee pain Knee pain : Patient Instructions Indication: Knee pain Mixed dyslipidemia : How to access health information online Indication: Mixed dyslipidemia Mixed dyslipidemia : How to access health information online - Detail Indication: Mixed dyslipidemia Mixed dyslipidemia : Patient Instructions Indication: Mixed dyslipidemia Cough : Patient Instructions Indication: Cough Other vitamin B12 deficiency anemia : Patient Instructions Indication: Other vitamin B12 deficiency anemia Type 2 diabetes mellitus, uncontrolled : Patient Instructions Indication: Type 2 diabetes mellitus, uncontrolled Unspecified asthma with (acute) exacerbation : Patient Instructions Indication: Unspecified asthma with (acute) exacerbation Encounter for screening for malignant neoplasm of cervix : Patient Instructions Indication: Encounter for screening for malignant neoplasm of cervix BMI 35.0-35.9,adult : obesity counseling Indication: BMI 35.0-35.9,adult Heart disease, hypertensive, malignant, without heart failure : Patient Instructions Indication: Heart disease, hypertensive, malignant, without heart failure Foot pain : Patient Instructions Indication: Foot pain Diabetes mellitus type II, controlled : Patient Instructions Indication: Diabetes mellitus type II, controlled Hypertension : Patient Instructions Indication: Hypertension Gastroesophageal reflux disease without esophagitis : Patient Instructions Indication: Gastroesophageal reflux disease without esophagitis Unspecified asthma with (acute) exacerbation : Patient Instructions Indication: Unspecified asthma with (acute) exacerbation BMI 35.0-35.9,adult : obesity counseling Indication: BMI 35.0-35.9,adult Type 2 diabetes mellitus, uncontrolled : Patient Instructions Indication: Type 2 diabetes mellitus, uncontrolled Anemia : Patient Instructions Indication: Anemia Encounters Annotation/Addendum On: 07-Jan-2018 13:06 Encounter Diagnosis: Unspecified Diagnosis End: 07-Jan-2018 13:10 [facility] Visit On: 06-Jan-2018 11:12 Encounter Reason: Cough - Symptoms include cough and chills. Cough onset was 2 week(s) ago. Associated symptoms include mouth breathing. Note for Cough: Has been on doxycycline but no relief of cough, still bringing up End: 06-Jan-2018 12:15 mucous. 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 Seeing Osm[facility] for this.Encounter Diagnosis: BMI 35.0-35.9,adult, Nonsmoker, Cough (786.2), Bronchitis, Unspecified asthma with (acute) exacerbation [facility] Office Visit On: 30-Dec-2017 11:09 Encounter Reason: Cough - Symptoms include cough. The cough is described as productive (yellow). Cough onset was 10 day(s) ago. Note for Cough: Got flu shot and unable to stop coughing.Encounter Diagnosis: Nonsmoker, BMI 35.0-35.9,adult, End: 30-Dec-2017 12:28 Bronchitis (490), Cough (786.2) [facility] Office Visit On: 15-Dec-2017 10:36 Encounter Reason: Follow up for chronic medical issues - The patient does not feel well (she has a ablation and I got a ??blood clot in the rt upper leg.), has decreased energy level and is sleeping poorly. Patient has b End: 15-Dec-2017 11:57 een compliant with instructions. Current medication use: no side effects and compliant with dosing regimen. Patient sleeps 4 hours per night. Nutrition: inadequate caloric intake, inappropriate diet and supplemental vitamins. The medical issues the patient is following up for include All identified problems below, blood sugar issues, high blood pressure, high cholesterol and other. blood pressure range :, fasting blood sugars : and weight :. Encounter Diagnosis: BMI 35.0-35.9,adult, Nonsmoker, Diabetes mellitus type II, controlled, ATRIAL FIBRILLATION (Renamed from A-fib), Hypertensive heart disease without heart failure, Coronary artery disease, Asthma, Other vitamin B12 deficiency anemia (281.1), Lung nodule (518.89), Need for prophylactic vaccination and inoculation against influenza [facility] Office Visit On: 27-Aug-2017 10:14 Encounter Reason: Follow up for chronic medical issues - The patient does not feel well, has decreased energy level and is sleeping well. Patient has been compliant with instructions. Current medication use: no side effe End: 27-Aug-2017 12:53 cts and compliant with dosing regimen. Patient sleeps 6 hours per night. Nutrition: balanced diet and supplemental vitamins. The medical issues the patient is following up for include All identified pro blems below, blood sugar issues, high blood pressure, high cholesterol and other. blood pressure range :, fasting blood sugars : and weight :.Encounter Diagnosis: Type 2 diabetes mellitus, uncontrolled, BMI 34.0-34.9,adult, Nonsmoker, Vitamin D deficiency, unspecified, B12 deficiency, Mixed dyslipidemia, Hypertensive heart disease without heart failure, Coronary artery disease, ATRIAL FIBRILLATION (Renamed from A-fib), Acute idiopathic gout involving toe of left foot [facility] Office Visit On: 28-May-2017 10:12 Encounter Reason: Follow up for chronic medical issues - The patient feels well with minor complaints (feels like hr is off/SOB/chest pain, pt was in hospital and dx with afib and rx meds which dropped my hr-saw dr rashid End: 28-May-2017 13:08 who did ekg and hr was in 30's so changed mes, had another ekg and hr was in 60's.. still having issues with hr and SOB and went back, hr was in 30's again. so meds changed again. goes back friday for another EKG), has good energy level and is sleeping well. Patient has been compliant with instructions. Current medication use: no side effects and compliant with dosing regimen. Patient sleeps 7 hours per night. Nutrition: balanced diet and supplemental vitamins. The medical issues the patient is following up for include All identified problems below, blood sugar issues, cardiac issues, high blood pr essure, high cholesterol and other. blood pressure range :, fasting blood sugars : and weight :.Encounter Diagnosis: Nonsmoker, Diabetes mellitus type II, controlled, ATRIAL FIBRILLATION (Renamed from A-fib), BMI 34.0-34.9,adult, Gastroesophageal reflux disease without esophagitis, Coronary artery disease, Hypertensive heart disease without heart failure, Mixed dyslipidemia, B12 deficiency, Vitamin D deficiency, unspecified, Hammer toe of left foot [facility] Office Visit On: 28-Apr-2017 13:08 Encounter Reason: Follow up hospital - Reason for ER visit: note: (afib in [facility] from sat till wed). The patient feels well with minor complaints, has good energy level and is sleeping well. Patient has been compliant End: 28-Apr-2017 14:49 with instructions. Current medication use: no side effects and compliant with dosing regimen. Patient sleeps 7 hours per night. Nutrition: balanced diet.Encounter Diagnosis: BMI 33.0-33.9,adult, Nonsmoker, ATRIAL FIBRILLATION (Renamed from A-fib), Mixed dyslipidemia, Hypertensive heart disease without heart failure, Coronary artery disease [facility] Visit On: 12-Feb-2017 10:13 Encounter Reason: Follow up for chronic medical issues - The patient feels well with minor complaints, has good energy level and is sleeping well. Patient has been compliant with instructions. Current medication use: no End: 12-Feb-2017 12:52 side effects and compliant with dosing regimen. Patient sleeps 7 hours per night. Nutrition: balanced diet and supplemental vitamins. The medical issues the patient is following up for include All ident ified problems below, blood sugar issues, cardiac issues, high blood pressure, high cholesterol and other. blood pressure range :, fasting blood sugars : and weight :.Encounter Diagnosis: BMI 33.0-33.9,adult, Nonsmoker, Other vitamin B12 deficiency anemia (281.1), Coronary artery disease, ATRIAL FIBRILLATION (Renamed from A-fib), Hypertensive heart disease without heart failure, Vitamin D deficiency, unspecified, Bilateral carotid artery stenosis, Mixed dyslipidemia , Type 2 diabetes mellitus, uncontrolled [facility] Visit On: 29-Nov-2016 10:15 Encounter Reason: Transition into care - The patient is transitioning into care from a hospital and a summary of care was reviewed (was in friday for afib and out and fri a=in [place] for not breathing well. The End: 29-Nov-2016 15:30 n again on for heart cath. He could not go trough the groin the whole way so they went this friday trough the wrist and they found nothing. I have CHF and that helped alot since I am now on lasix.).Encounter Diagnosis: BMI 32.0-32.9,adult, Nonsmoker, ATRIAL FIBRILLATION (Renamed from A-fib), Coronary artery disease, Type 2 diabetes mellitus, uncontrolled, Other vitamin B12 deficiency anemia (281.1) [facility] Office Visit On: 07-Nov-2016 10:41 Encounter Reason: Follow up tests - Date: (11/04/16 labs)., [ADDITIONAL REASON] Follow up for chronic medical issues - The patient feels well with minor complai End: 07-Nov-2016 11:47 nts, has decreased energy level and is sleeping poorly. Patient has been compliant with instructions. Current medication use: no side effects and compliant with dosing regimen. Patient sleeps 6 hours pe r night. Nutrition: balanced diet and no supplemental vitamins & iron. The medical issues the patient is following up for include All identified problems below, blood sugar issues, high blood pressu re, high cholesterol and other. blood pressure range :, fasting blood sugars : and weight :. Encounter Diagnosis: Need for prophylactic vaccination and inoculation against influenza, BMI 33.0-33.9,adult, Mixed dyslipidemia, Coronary artery disease, Other vitamin B12 deficiency anemia (281.1), ATRIAL FIBRILLATION (Renamed from A- fib), Asthma, Gout, arthritis, Type 2 diabetes mellitus, uncontrolled [facility] Visit On: 04-Nov-2016 9:27 Encounter Reason: Injections - The medication the patient is here to receive is vitamin B12 IM.Encounter Diagnosis: B12 deficiency End: 04-Nov-2016 10:37 [facility] Visit On: 08-Aug-2016 11:20 Encounter Reason: Injections - The medication the patient is here to receive is vitamin B12 IM.Encounter Diagnosis: B12 deficiency End: 08-Aug-2016 12:37 [facility] Visit On: 31-Jul-2016 10:43 Encounter Reason: Follow up for chronic medical issues - The patient feels well with minor complaints, has good energy level and is sleeping well. Patient has been compliant with instructions. Current medication use: no End: 31-Jul-2016 11:30 side effects and compliant with dosing regimen. Patient sleeps 7 hours per night. Nutrition: balanced diet and supplemental vitamins. The medical issues the patient is following up for include All ident ified problems below, asthma, blood sugar issues, high blood pressure, high cholesterol and hypothyroid. blood pressure range :, fasting blood sugars : and weight :.Encounter Diagnosis: BMI 33.0-33.9,adult, Nonsmoker, Type 2 diabetes mellitus, uncontrolled, ATRIAL FIBRILLATION (Renamed from A-fib), Hypertensive heart disease without heart failure, Other vitamin B12 deficiency anemia (281.1), Gastroesophageal reflux disease without esophagitis, Asthma, Coronary artery disease, Mixed dyslipidemia [facility] Phone Encounter On: 07-May-2016 11:26 Encounter Diagnosis: Type 2 diabetes mellitus, uncontrolled End: 07-May-2016 11:29 [facility] Visit On: 24-Apr-2016 13:09 Encounter Reason: Follow up for chronic medical issues - The patient feels well with minor complaints, has good energy level and is sleeping well. Patient has been compliant with instructions. Current medication use: no End: 24-Apr-2016 16:05 side effects and compliant with dosing regimen. Patient sleeps 7 hours per night. Nutrition: balanced diet and supplemental vitamins. The medical issues the patient is following up for include All ident ified problems below and blood sugar issues. blood pressure range :, fasting blood sugars : and weight :., [ADDITIONAL REASON] Follow up tests - Date: (04/17/16 labs). Encounter Diagnosis: Nonsmoker, BMI 33.0-33.9,adult, Gastroesophageal reflux disease without esophagitis, Other vitamin B12 deficiency anemia (281.1), Hypertensive heart disease without heart failure, ATRIAL FIBRILLATION (Renamed from A-fib), Type 2 diabetes mellitus, uncontrolled [facility] Visit On: 27-Feb-2016 14:39 Encounter Reason: Follow up for diabetes/glucose intoleranceEncounter Diagnosis: Type 2 diabetes mellitus, uncontrolled, Cough (786.2), Bronchitis (490) End: 29-Feb-2016 0:26 [facility] Visit On: 23-Jan-2016 13:51 Encounter Reason: Follow up for diabetes/glucose intoleranceEncounter Diagnosis: Type 2 diabetes mellitus, uncontrolled, Bronchitis (490) End: 23-Jan-2016 15:26 [facility] Visit On: 16-Jan-2016 10:33 Encounter Reason: Follow up for chronic medical issues - The patient does not feel well (fighting a cold for a couple weeks. Coughing up yellow mucus. Hard to sleep at night. ), has decreased energy level and is sleeping End: 16-Jan-2016 17:44 poorly. Patient has been compliant with instructions. Current medication use: no side effects and compliant with dosing regimen. Patient sleeps 6 hours per night. Nutrition: balanced diet. The medical issues the patient is following up for include asthma, blood sugar issues and high cholesterol. fasting blood sugars : (120-160 avg but this week has been higher)., [ADDITIONAL REASON] Follow up tests - Date: (01/09 blood work). Encounter Diagnosis: Type 2 diabetes mellitus, uncontrolled, Anemia(285.9), Vitamin D deficiency, unspecified, Coronary artery disease, Gastroesophageal reflux disease without esophagitis, High triglycerides, Benign neoplasm of cerebral meninges, History of colon polyps, Bilateral carotid artery stenosis, Hypertensive heart disease without heart failure, ATRIAL FIBRILLATION (Renamed from A-fib), Other vitamin B12 deficiency anemia (281.1), Hypertension, Asthma, Encounter for screening mammogram for breast cancer (Renamed from Encounter for screening mammogram for malignant neoplasm of breast), Postmenopausal, Cough (786.2) [facility] Office Visit On: 20-Oct-2015 10:41 Encounter Diagnosis: Type 2 diabetes mellitus, uncontrolled End: 20-Oct-2015 10:44 [facility] Annotation/Addendum On: 12-Oct-2015 6:50 [facility] End: 12-Oct-2015 6:53 Office Visit On: 11-Oct-2015 10:47 Encounter Reason: Follow up tests - Date: (09/2015)., [ADDITIONAL REASON] Follow up for chronic medical issues - The patient feels well with minor complai End: 11-Oct-2015 15:50 nts, has good energy level and is sleeping well. Patient has been compliant with instructions. Current medication use: no side effects and compliant with dosing regimen. Patient sleeps 6 hours per night . Nutrition: balanced diet. The medical issues the patient is following up for include asthma, blood sugar issues and high cholesterol. fasting blood sugars : (120- 160). Note for Follow up for chronic medical issues: she never got to levemir 30 she though 25 made her lightheaded- so been on 20 and sugars up- when lightheaded her sugar ok- she has only been on gemfibrozil 2 weeks and trigs ??down- and toelrating ok Encounter Diagnosis: Type 2 diabetes mellitus, uncontrolled, Need for prophylactic vaccination and inoculation against influenza, Other vitamin B12 deficiency anemia (281.1), BMI 34.0- 34.9,adult, Nonsmoker, Anemia(285.9), Hypertensive heart disease without heart failure , Bilateral carotid artery stenosis, Vitamin D deficiency, unspecified, Asthma, Cardiac dysrhythmia, Benign neoplasm of cerebral meninges, Hypertension, ATRIAL FIBRILLATION (Renamed from A-fib), History of colon polyps, Gastroesophageal reflux disease without esophagitis, Coronary artery disease, Osteoarthritis, High triglycerides, 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 Patient has been compliant with instructions. Current medication use: no savage End: 09-Jul-2015 21:08 e effects and compliant with dosing regimen. Patient sleeps 6 hours per night. Nutrition: balanced diet. The medical issues the patient is following up for include asthma, blood sugar issues and high ch olesterol. fasting blood sugars : (120-160). Note for Follow up for chronic medical issues: she never got to levemir 30 she though 25 made her lightheaded- so been on 20 and sugars up- when lightheade d her sugar ok- she has only been on gemfibrozil 2 weeks and trigs down- and toelrating ok, [ADDITIONAL REASON] Follow up tests - Diagnostic tests include other (labs). Date: (06/2015). Encounter Diagnosis: Type 2 diabetes mellitus, uncontrolled, Hypertensive heart disease without heart failure, Asthma, Vitamin D deficiency, unspecified, Bilateral carotid artery stenosis, Mixed dyslipidemia, Other vitamin B12 deficiency anemia (281.1) [facility] Office Visit On: 22-May-2015 10:37 Encounter Reason: Follow up tests - Date: (05/08/15 blood work). Note for Discuss procedure results: likes the levemir pen better- now on 25 units a day- fasting 180 today- went out to lunch and had pizza last night- calix End: 22-May-2015 22:28 s been running 150-160- she will titrate to 30- later in day 150s- she has to have another sleep study so that getting set up- bp is good- had right cataract surgery- ok -- she had to stop tripilix toob ad myalgia and tried qod still there- and pravastztin starting to be issue tooEncounter Diagnosis: Other vitamin B12 deficiency anemia (281.1), Vitamin D deficiency, unspecified, Type 2 diabetes mellitus, uncontrolled, Mixed dyslipidemia, Actinic keratosis [facility] Office Visit On: 03-Apr-2015 10:49 Encounter Reason: Follow up for chronic medical issues - The patient feels well with minor complaints (talk about insulin), has good energy level and is sleeping well. Patient has been compliant with instructions. Baileyen End: 04-Apr-2015 23:22 t medication use: no side effects and compliant with dosing regimen. Patient sleeps 6 hours per night. Nutrition: balanced diet. The medical issues the patient is following up for include asthma, blood sugar issues and high cholesterol. fasting blood sugars : (120-160). Note for Follow up for chronic medical issues: she is seeing naty because having issues with bowels again- -and did get diagnosed with magy- wearing capap- and she having cataract surgery done- she was using levemir ran out- she doesnt like lantus pen- hard to do- wants to go back on levemir- she has only been doing 22 unit on las ntus will go back to 30 with levemir- she having more diarrhea with ibs so going to see naty for new med - had neuro apptok- fasting sugars been under 200- 160s , [ADDITIONAL REASON] Follow up tests - Diagnostic tests include other (labs). Date: (03/24/15). Encounter Diagnosis: Type 2 diabetes mellitus, uncontrolled, Gastroesophageal reflux disease without esophagitis, Mixed dyslipidemia, Other vitamin B12 deficiency anemia (281.1), Vitamin D deficiency, unspecified, Irritable bowel syndrome with diarrhea, Bilateral carotid artery stenosis, Hypertensive heart disease without heart failure [facility] Phone Encounter On: 24-Mar-2015 11:05 Encounter Diagnosis: Type 2 diabetes mellitus, uncontrolled End: 24-Mar-2015 11:11 [facility] Phone Encounter On: 24-Mar-2015 11:02 Encounter Diagnosis: Type 2 diabetes mellitus, uncontrolled End: 24-Mar-2015 11:04 [facility] Office Visit On: 17-Mar-2015 9:30 Encounter Reason: Nurse procedure visit - Reason for visit: other (B12 injection).Encounter Diagnosis: Other vitamin B12 deficiency anemia (281.1) End: 17-Mar-2015 9:50 [facility] Office Visit On: 30-Dec-2014 10:41 Encounter Reason: Follow up for chronic medical issues - The patient feels well with minor complaints (edema in lower legs), has good energy level and is sleeping well. Patient has been compliant with instructions. Curre End: 01-Jan-2015 22:12 nt medication use: experiencing side effects and compliant with dosing regimen. Patient sleeps 6 hours per night. Nutrition: balanced diet. The medical issues the patient is following up for include ast hma, blood sugar issues and high cholesterol. fasting blood sugars : (120-160). Note for Follow up for chronic medical issues: she is still losing weight trying to cut back - she feels sugasrs stillno t good- bp is good- levemir retried and made her dizzy- willing to try altenrative but we disussed kadeem wants to stay in same class- has followup for meningioma soon - breathing stable, [ADDITIONAL REASON] Follow up tests - Diagnostic tests include other (labs). Date: (12/28/14). Encounter Diagnosis: Mixed dyslipidemia, Leg swelling, Heart disease, hypertensive, malignant, without heart failure, Type 2 diabetes mellitus, uncontrolled, Vitamin D deficiency, unspecified, Other vitamin B12 deficiency anemia (281.1), Prophylactic vaccination against streptococcus pneumoniae and influenza [facility] Office Visit On: 21-Oct-2014 10:18 Encounter Reason: Follow up tests - Diagnostic tests include other (labs). Date: (10/2014)., [ADDITIONAL REASON] Follow up Meds - The patient feels well with minor complaints (sugars are runnin End: 23-Oct-2014 20:50 g about the same and df told her this new med can possibly give her a yeast infection and she believes she has one now.), has good energy level (getting better) and is sleeping well. Patient has been co mpliant with instructions. Current medication use: experiencing side effects and compliant with dosing regimen. Patient sleeps 7 hours per night. Note for Follow up Meds: Follow up on Invokana.- she t hinks giving her yeasst so wanted to stop it- itchy vaginal white discharge Encounter Diagnosis: DIABETES MELLITUS WITHOUT MENTION OF COMPLICATION; TYPE II OR UNSPECIFIED TYPE, UNCONTROLLED (250.02), Yeast Infection: Candidiasis of Unspecified Site (112.9), VITAMIN D DEFICIENCY, NOS (268.9), Other vitamin B12 deficiency anemia (281.1), Need for prophylactic vaccination and inoculation against influenza (V04.81) [facility] Office Visit On: 05-Oct-2014 11:35 Encounter Reason: Follow up tests - Date: (09.28.2014)., [ADDITIONAL REASON] Follow up for chronic medical issues - The patient feels well with minor complai End: 06-Oct-2014 23:01 nts (couldnt tolerate the levemir sp stopped itn d/t s/e of dizziness and felt really bad all over), has good energy level and is sleeping well. Patient has been compliant with instructions. Current med ication use: experiencing side effects and compliant with dosing regimen. Patient sleeps 6 hours per night. Nutrition: balanced diet. The medical issues the patient is following up for include asthma, b lood sugar issues and high cholesterol. fasting blood sugars : (120-160). Note for Follow up for chronic medical issues: Jennifer doing a sleep study on pt. - she is down 10 pounds and is cutting back plus amparo felt great- she asked jennifer about nodules- they were checked for 2 years with no change we discussed last mri of brain 2012- but when she went back to look at [facility] he hasnt scanned but today headahce there at sight of tumor and bp up last few days - not sleeping well- she did levemir 10 didnt get sugar better - so went up 15 still not better - and was making her dizzy even though sugars not down Encounter Diagnosis: Other vitamin B12 deficiency anemia (281.1), Hyperlipidemia, Mixed (272.2), Asthma (493.11), Hypertension (401.0), Carotid Stenosis (433.10), 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), DIABETES MELLITUS WITHOUT MENTION OF COMPLICATION; TYPE II OR UNSPECIFIED TYPE, UNCONTROLLED (250.02), VITAMIN D DEFICIENCY, NOS (268.9), screening [facility] Office Visit On: 01-Sep-2014 10:49 Encounter Reason: Injections - The medication the patient is here to receive is vitamin B12 IM.Encounter Diagnosis: Other vitamin B12 deficiency anemia (281.1) End: 01-Sep-2014 21:37 [facility] Office Visit On: 29-Jun-2014 12:19 Encounter Reason: Follow up Meds - The patient feels well with minor complaints (doesn't feel good 45 mins after she takes the insulin. Gets headache, nausea, although last 2 days has been feeing well. ??Has list of BS r End: 04-Jul-2014 22:24 eadings, has not been running well. On avg, fasting BS over 200), has good energy level (getting better) and is sleeping well. Patient has been compliant with instructions. Current medication use: exper iencing side effects and compliant with dosing regimen. Note for Follow up Meds: - over time last few days- feeling better now but last few days feels- better - she has weight down 5 pounds and has le ss appetitie- and bp good- - sugars trending down now was intially high 200-300s now down low 200s Encounter Diagnosis: DIABETES MELLITUS WITHOUT MENTION OF COMPLICATION; TYPE II OR UNSPECIFIED TYPE, UNCONTROLLED (250.02), Asthma (493.11), Leg swelling, Hyperlipidemia, Mixed (272.2), Iron Deficiency Anemia,Unspecified (280.9), VITAMIN D DEFICIENCY, NOS (268.9), Other vitamin B12 deficiency anemia (281.1), Carotid Stenosis (433.10) [facility] Office Visit On: 01-Jun-2014 10:14 Encounter Reason: Follow up tests - Date: (05/25/14 blood work)., [ADDITIONAL REASON] Follow up for chronic medical issues - The patient feels well with minor complai End: 06-Jun-2014 8:22 nts (swelling in legs and SOB. Had a stress test with my mortar man and everything came back normal.), has decreased energy level and is sleeping well. Patient has been compliant with instructions. Cu rrent medication use: experiencing side effects (sugars have been going up since change in medication.) and compliant with dosing regimen. Patient sleeps 5 hours per night. Nutrition: balanced diet and supplemental vitamins. The medical issues the patient is following up for include asthma, blood sugar issues and high cholesterol. fasting blood sugars : (120- 160). 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 she doesnt want to - we talked about diabetes disease progression- she notices swelling better if moving around more - [facility] so think should do that - again di scussed risk of target organ damage - we reviewed those organs and what can happen and reviewed dietary changes and ex in detail - Encounter Diagnosis: 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), SOB (786.05), DIABETES MELLITUS WITHOUT MENTION OF COMPLICATION; TYPE II OR UNSPECIFIED TYPE, UNCONTROLLED (250.02), Carotid Stenosis (433.10), Asthma (493.11), VITAMIN D DEFICIENCY, NOS (268.9), Other vitamin B12 deficiency anemia (281.1), Iron Deficiency Anemia,Unspecified (280.9), Hyperlipidemia, Mixed (272.2), Leg swelling [facility] Office Visit On: 26-May-2014 10:14 Encounter Reason: Injections - The medication the patient is here to receive is vitamin B12 IM.Encounter Diagnosis: Unspecified Diagnosis End: 26-May-2014 10:22 [facility] Office Visit On: 11-Apr-2014 11:39 Encounter Reason: Injections - The medication the patient is here to receive is vitamin B12 IM.Encounter Diagnosis: Other vitamin B12 deficiency anemia (281.1) End: 11-Apr-2014 11:55 [facility] Phone Encounter On: 04-Apr-2014 15:13 Encounter Diagnosis: Diabetic polyneuropathy associated with type 2 diabetes mellitus End: 04-Apr-2014 15:33 [facility] Office Visit On: 02-Mar-2014 10:11 Encounter Reason: Follow up for chronic medical issues - The patient feels well with minor complaints (currently on atb and prednisone from being seen here for URI- continues with a cough and now very hoarse ), has decre End: 02-Mar-2014 23:26 ased energy level and is sleeping poorly (cause of being sick). Patient has been compliant with instructions. Current medication use: no side effects and compliant with dosing regimen. Patient sleeps 5 hours per night. Nutrition: balanced diet and supplemental vitamins. The medical issues the patient is following up for include asthma, blood sugar issues and high cholesterol. fasting blood sugars : (1 20-160). 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 Onset was 1 week(s) ago. The symptoms occur constantly. The patient End: 22-Feb-2014 20:59 describes this as worsening. Associated symptoms include fatigue, weakness and fever. Current treatment includes cough suppressants. Note for Cold symptoms: ribs hurt with coughing- not check temp at home- coughing and wheezing- had gotten better from dec had residual cough but always doesEncounter Diagnosis: Cough (786.2), Asthma with Acute Exacerbation (493.02), Bronchitis,Acute (466.0) [facility] Office Visit On: 31-Jan-2014 13:45 Encounter Reason: Follow up acute care visit - The patient improving.Encounter Diagnosis: ASTHMA, UNSPECIFIED, WITH ACUTE EXACERBATION (493.92), Cough (786.2), Wheezing (786.07), SOB (786.05) End: 31-Jan-2014 18:04 [facility] Office Visit On: 21-Jan-2014 9:29 Encounter Reason: Injections - The medication the patient is here to receive is vitamin B12 IM.Encounter Diagnosis: VITAMIN D DEFICIENCY, NOS (268.9) End: 21-Jan-2014 9:42 [facility] Office Visit On: 17-Jan-2014 14:07 Encounter Reason: Follow up acute care visit - The patient feeling better since last seen and improving. Patient has been compliant with instructions. Current medication use: no side effects, compliant with dosing regime End: 17-Jan-2014 14:59 n and considered effective by patient. Patient sleeps 6 hours per night. Impact of disease: no overall impact. The medical issues the patient is following up for include All identified problems below and other (atelectisis)., [ADDITIONAL REASON] Follow up tests - Diagnostic tests include other (labs). Date: (01/14/14). Encounter Diagnosis: Atelectasis, Bronchitis (490), Benign neoplasm of cerebral meninges, Leg swelling, Anemia(285.9) [facility] Annotation/Addendum On: 14-Jan-2014 15:14 Encounter Diagnosis: Atelectasis End: 14-Jan-2014 15:19 [facility] Office Visit On: 14-Jan-2014 13:29 Encounter Reason: Shortness of Breath - Symptoms include dyspnea, exercise intolerance, fatigue, orthopnea and cough, while symptoms do not include chest pain.Encounter Diagnosis: SOB (786.05), Benign neoplasm of cerebral meninges, Leg swelling End: 14-Jan-2014 14:11 [facility] Office Visit On: 29-Nov-2013 13:13 Encounter Reason: Follow up for chronic medical issues - The patient feels well with minor complaints, has good energy level and is sleeping well. Patient has been compliant with instructions. Current medication use: no End: 29-Nov-2013 22:32 side effects and compliant with dosing regimen. Patient sleeps 7 hours per night. Nutrition: balanced diet and supplemental vitamins. The medical issues the patient is following up for include asthma, b lood sugar issues and high cholesterol. fasting blood sugars : (120-160). Note for Follow up for chronic medical issues: bp is good weight is up - she not exercising like was due to knee - she is burt g to have to get rinjected with ortho- trigs better with trilipix can only tolerate qod and bp good sugar up - not taking b12 routinely enocurage and taking vit d 3000- cough better- in general not rout ine asthma flares - no gerd- really not working hard on diet again discussed importance of this becuase she going to need to start on injectabl- she not really want to do and really going to work harder on diet .ex, [ADDITIONAL REASON] Follow up tests - Date: (november 2013). 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 Symptoms are located in End: 06-Sep-2013 22:09 the left knee. There is no radiation. The patient describes the pain as sharp and aching. Onset was sudden 1 month(s) ago. The symptoms occur constantly. The patient describes symptoms as worsening. As sociated symptoms do not include fever or chills. The patient is not currently being treated for this problem. Note for Knee pain: left knee for a month- started when drove [address] - alot of walkin g and hiking- pain and swelling at joint line- mostly medial- - taking ibuprofen and takes edge offEncounter Diagnosis: Knee pain (719.46) [facility] Phone Encounter On: 23-Aug-2013 10:45 [facility] End: 23-Aug-2013 10:46 Office Visit On: 18-Aug-2013 11:01 Encounter Reason: Follow up for chronic medical issues - The patient feels well with minor complaints (lump under L side of chin. Noticed it on Friday, tender to touch. Has had a cough x 3 months so not sure if related.A End: 23-Aug-2013 8:44 lso had an MRI with doc up in [place] and was told that she had a stroke...may have happened during episode of AFIB in 2012.), has good energy level and is sleeping well. Patient has been compliant with i nstructions. Current medication use: no side effects and compliant with dosing regimen. Patient sleeps 7 hours per night. Nutrition: balanced diet and supplemental vitamins. The medical issues the patie nt is following up for include asthma, blood sugar issues and high cholesterol. fasting blood sugars : (120-160). Note for Follow up for chronic medical issues: saw neuro had followup mri of brain and tumor ok- no headaches but apparently new small remote lateral cerebellum ischemia- thinks may have been related to her afib- she doesnt recall sx maybe tremor in hand- sugar better and weight down 3 p ounds- the cough little left- ??but much better than was - hasnt done b12 since may will give shot start sublingual- she needs to check how much vit d taking - only taking pravachol trilipix gave her leg pain, [ADDITIONAL REASON] Follow up tests - Date: (08/17/13 blood work). 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 Patient has been compliant with instructions. Current medication use: no side effects (pred keeps me awake). The me End: 16-Jul-2013 13:51 dical issues the patient is following up for include All identified problems below, asthma and other (cough).Encounter Diagnosis: Cough (786.2), Wheezing (786.07), ASTHMA, UNSPECIFIED, WITH ACUTE EXACERBATION (493.92) [facility] Office Visit On: 09-Jul-2013 14:04 Encounter Reason: Follow up acute care visit - The patient feels the same and improving. Patient has been compliant with instructions. Current medication use: experiencing side effects (insomnia from the inj. but did feel like it helped). End: 09-Jul-2013 15:12 Encounter Diagnosis: Cough (786.2), ASTHMA, UNSPECIFIED, WITH ACUTE EXACERBATION (493.92) [facility] Office Visit On: 24-Jun-2013 10:13 Encounter Reason: Injections - The medication the patient is here to receive is vitamin B12 IM.Encounter Diagnosis: Other vitamin B12 deficiency anemia (281.1) End: 24-Jun-2013 21:57 [facility] Office Visit On: 21-Jun-2013 11:26 Encounter Reason: Cough - The onset of the cough has been sudden. The cough is characterized as dry. The amount of sputum produced is scanty. The cough occurs all the time. The symptoms are aggravated by supine posture. End: 21-Jun-2013 12:38 The symptoms have been associated with headache (with Calix) and hoarseness, while the symptoms have not been associated with fever, runny nose, sore throat or wheezing.Encounter Diagnosis: SOB (786.05), Cough (786.2), ASTHMA, UNSPECIFIED, WITH ACUTE EXACERBATION (493.92) [facility] Office Visit On: 05-May-2013 14:51 Encounter Reason: Follow up tests - Date: (04/30/13 blood work)., [ADDITIONAL REASON] Follow up for chronic medical issues - The patient feels well with minor complai End: 06-May-2013 21:36 nts, has good energy level and is sleeping well (sometimes gets leg cramps but otherwise sleeps well). Patient has been compliant with instructions. Current medication use: experiencing side effects (le g cramps off and on q hs from statin) and compliant with dosing regimen. Patient sleeps 7 hours per night. Nutrition: balanced diet and supplemental vitamins. The medical issues the patient is following up for include asthma, blood sugar issues and high cholesterol. fasting blood sugars : (120's to 170's). Note for Follow up for chronic medical issues: she saw podiatry and had shoe intersoles fitted and helped alot- less ankle and foot pain - daughter and grandsons in [place] - hit left of center- went to hospital - so thinks that is why bp up- she is checking some bps at home- she doesnt recall the n umbers - vertigo better- not leg cramps every night on occasion- she is trying to start exrcising - sugar slight improve-cough alot better- was just at cardio- and things stable- taking pravastatin dial y but geting leg cramps 3 times a week- took trilipix and getting more so went off she only taking 2000 vit d a day- so increase to double Encounter Diagnosis: DIABETES MELLITUS WITHOUT MENTION OF COMPLICATION; TYPE II OR UNSPECIFIED TYPE, UNCONTROLLED (250.02), Other vitamin B12 deficiency anemia (281.1), GERD (530.81), Hyperlipidemia, Mixed (272.2), VITAMIN D DEFICIENCY, NOS (268.9), Cough (786.2), ATRIAL FIBRILLATION (Renamed from A-fib), Hypertension (401.0), Carotid Stenosis (433.10), Eustachian Tube Dysfunction (381.81) [facility] Office Visit On: 27-Apr-2013 9:54 Encounter Reason: Injections - The medication the patient is here to receive is vitamin B12 IM.Encounter Diagnosis: Other vitamin B12 deficiency anemia (281.1) End: 27-Apr-2013 10:27 [facility] Office Visit On: 17-Feb-2013 14:45 Encounter Reason: Cough - The last clinic visit was 4 day(s) ago. No changes in management were made at the last visit. Symptoms include cough, wheezing, fever and runny nose, while symptoms do not include chills. The co End: 17-Feb-2013 15:53 ugh is described as hacking. There is no known event that preceded symptom onset. The cough occurs constantly. Symptoms are described as severe and worsening.Encounter Diagnosis: ASTHMA, UNSPECIFIED, WITH ACUTE EXACERBATION (493.92), Wheezing (786.07), SOB (786.05), Bronchitis (490), Cough (786.2) [facility] Office Visit On: 12-Jan-2013 14:25 Encounter Reason: Annual Medicare Exam - The patient had reviewed and updated the family history, medication/s, past medical history and social history. Yes the patient did have a mini mental status exam done today. The End: 12-Jan-2013 22:54 activities of daily living the patient needs help with are none. The patient has had fecal incontinence, driven in past 6 months and put area rugs through house, but the patient has not had urinary inco ntinence, missed or ran out of medications to soon, fallen in the past 6 months, gotten lost, has a medalert necklace or bracelet or put handrails in bathroom. The patient does have living will, but the patient does not have durable power of immigration attorney. The patient has noticed nothing from the geriatic depression scale. Other providers contributing to the patient's care are mortar man, gastrologist an d other: (neurologist). Note for Annual Medicare Exam: doesnt want shingles vaccine , [ADDITIONAL REASON] Well Women Exam - The patient feels well with minor complaints, has good energy level and is sleeping well. Pap smear: date of last pap: (years ago). Contraceptive history: The patient is not using any method of contraception at this time. Patient exercises every other day. The pat ient's libido is absent. The patient reports that she does not perform monthly breast self exam. Previous evaluations: hysterectomy (partial). The patient denies the use of oral contraceptives or hormon e replacement therapy. Menstruation: Last menstrual period date: (post-huey). , [ADDITIONAL REASON] Ankle Pain - Note for Ankle pain: right ankle- fracutre in past- now swelling medially- turns in when walks- worse with alot of wlaking -had xray in oct Encounter Diagnosis: Well Woman Exam , Medicare (V76.2) (Renamed from Well Woman Exam , Medicare (V76.2, V72.31)), Ankle/Foot Pain (719.47), Annual Medicare Physical (V70.0) , CARDIAC DYSRHYTHMIA (427.9) [facility] Office Visit On: 18-Dec-2012 13:03 Encounter Reason: Follow up for chronic medical issues - The patient feels well with minor complaints (still having vertigo but little improved since here last), has good energy level and is sleeping well (sometimes gets End: 20-Dec-2012 21:11 leg cramps but otherwise sleeps well). Patient has been compliant with instructions. Current medication use: experiencing side effects (leg cramps off and on q hs from statin) and compliant with dosing regimen. Patient sleeps 6 hours per night. Nutrition: inappropriate diet and supplemental vitamins. The medical issues the patient is following up for include asthma, blood sugar issues and high choles terol. fasting blood sugars : (120's to 170's). Note for Follow up for chronic medical issues: had damaris maneuver today at [facility] and helped some so far - her weight down 4 pounds- she having les s diarrhea with only taking 2 metformin instead of 4 and also so naty and he giving her med for ibs - but she not sure if med for ibs or less metform in so she wants to retry more metformin - she is o nly taking 1000 units of vit d a day so increase to 3-4 a day- stop iron -she thinks trilipix gav her leg cramps but will retry - she drinking sugar tea, [ADDITIONAL REASON] Follow up, Laboratory Test Results - Date: (12/01/12). 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 The dizziness is described as vertigo, a sensation of movement and loss of balance. Onset was gradual. 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 Symptoms are located in the right foot. Onset was sudden. The symptoms occur constantly. The patient describes symptoms as moderate in severi End: 02-Nov-2012 10:55 ty and worsening. Symptoms are exacerbated by walking and standing. Associated symptoms include pain with shoes and ankle swelling.Encounter Diagnosis: Foot pain (729.5) [facility] Office Visit On: 19-Oct-2012 10:35 Encounter Reason: Injections - The medication the patient is here to receive is vitamin B12 IM.Encounter Diagnosis: Anemia(285.9) End: 19-Oct-2012 10:47 [facility] Office Visit On: 31-Aug-2012 11:11 Encounter Reason: Follow up for chronic medical issues - The patient feels well with no complaints, has good energy level and is sleeping well (sometimes gets leg cramps but otherwise sleeps well). Patient has been compl End: 31-Aug-2012 23:13 iant with instructions. Current medication use: experiencing side effects (leg cramps off and on q hs from statin) and compliant with dosing regimen. Patient sleeps 6 hours per night. Nutrition: inappro priate diet and supplemental vitamins. The medical issues the patient is following up for include asthma, blood sugar issues and high cholesterol. fasting blood sugars : (120's to 170's). Note for Foll ow up for chronic medical issues: saw neurologist and david last week and he thought she doing well- her headaches better- and saw naty again and adjuxting her meds and stools improving- - her bp is good and sugar is stable, [ADDITIONAL REASON] Follow up, Laboratory Test Results - Date: (08/27/12). 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 The symptoms have been associated with family history of hypertension, while the symptoms have not been associated End: 22-Jun-2012 12:22 with anxiety, obesity, use of nasal decongestants, use of oral contraceptives or use of steroids. blood pressure range : (120's/70's- doesnt check it too often and forgot the readings). Note for Follow up Hypertension: bp alot better- and gerd better and cough alot better- she had olonsoocpy and was neg and told had ibs Encounter Diagnosis: Hypertension (401.0), screening , postmenopausal without estrogen, Irritable Bowel Syndrome (564.1), Other vitamin B12 deficiency anemia (281.1), Iron Deficiency Anemia,Unspecified (280.9), VITAMIN D DEFICIENCY, NOS (268.9), Hyperlipidemia, Mixed (272.2) [facility] Phone Encounter On: 15-Jun-2012 17:01 Encounter Diagnosis: SOB (786.05) End: 15-Jun-2012 17:03 [facility] Office Visit On: 15-Jun-2012 14:55 Encounter Diagnosis: Other vitamin B12 deficiency anemia (281.1) End: 15-Jun-2012 15:18 [facility] Office Visit On: 17-Apr-2012 10:17 Encounter Reason: Transition into care - The patient most recently received care from a hospital., [ADDITIONAL REASON] Follow up hospital - Reason for ER visit: note: (a-fib). The patient feels well End: 19-Apr-2012 22:47 with minor complaints (still has a cough from seeing db 03/27/12 ??and has been having headaches again lately- was in the hosp when had apt scheduled with her neuro surgeon.), has decreased energy level and is sleeping well. Patient has been compliant with instructions. Current medication use: no side effects and compliant with dosing regimen. Patient sleeps 6 hours per night. Hospital procedures perfo rmed were other. Note for Follow up hospital: had a cold week prior and bad cough and that am had bad coughing spell and then felt like was shaking- called [facility] and her heart rate was over 200 and t ried to shock her and didnt go back into rhythn- they started her on iv meds then went too low- but then got better- just had holter on and waiting for the results- saw Naty to get colonsocopy- he wan ts her to be cleared to have colonsocopy by cardio - and she isnt on blood thinner becuase of the brain surgery- she hasnt had headaches any more - the month had all the blood in stool was taking alot o f aspirin and aleve - is off that - ??arianna got changed to arianna hctz Encounter Diagnosis: GERD (530.81), DIABETES 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 No changes in management were made at the last visit. Symptoms include cough and runny nose, while symptoms do not include chills or fever. The cough is End: 27-Mar-2012 12:05 described as hacking. Cough onset was sudden. There is no known event that preceded symptom onset. The cough occurs constantly. Symptoms are described as moderate in severity and unchanged. Associated s ymptoms include postnasal drainage. Current treatment includes antihistamines and decongestants. Note for Cough: scant mucous light yellow. ??nasal drainage better. last night night able to sleep. saw jennifer for Ct scan follow up and given tessolon and codiene syrup. cough so hard that spasm throatEncounter Diagnosis: ASTHMA, UNSPECIFIED, WITH ACUTE EXACERBATION (493.92) [facility] Office Visit On: 12-Feb-2012 17:36 Encounter Diagnosis: DIABETES MELLITUS WITHOUT MENTION OF COMPLICATION; TYPE II OR UNSPECIFIED TYPE, UNCONTROLLED (250.02) End: 12-Feb-2012 20:48 [facility] Office Visit On: 17-Jan-2012 10:47 Encounter Reason: Follow up for chronic medical issues - The patient feels well with minor complaints (insurance not covering the onglyza- suggest januvia or trajenta), has good energy level and is sleeping well (sometim End: 19-Jan-2012 20:25 es gets leg cramps but otherwise sleeps well). Patient has been compliant with instructions. Current medication use: experiencing side effects (leg cramps off and on q hs from statin) and compliant with dosing regimen. Patient sleeps 6 hours per night. Nutrition: inappropriate diet and supplemental vitamins. The medical issues the patient is following up for include asthma, blood sugar issues and high cholesterol. fasting blood sugars : (120's to 170's). Note for Follow up for chronic medical issues: she saw Dr clements and he did cath apparently vessels open and had echo and cxr- her breathing better with prednisone- her sugars are up becuase less active this month - - she is seeing dr bales and it is helping- she hasnt been to [facility] encoruage , [ADDITIONAL REASON] Follow up, Laboratory Test Results - Date: (12/25/11). Encounter Diagnosis: Hyperlipidemia, Mixed (272.2), VITAMIN D DEFICIENCY, NOS (268.9), DIABETES MELLITUS WITHOUT MENTION OF COMPLICATION; TYPE II OR UNSPECIFIED TYPE, UNCONTROLLED (250.02), Other vitamin B12 deficiency anemia (281.1), GERD (530.81) , 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), Colon Polyps, History of (V12.72), PVC, OTHER PREMATURE BEATS (427.69), Iron Deficiency Anemia,Unspecified (280.9), Need for prophylactic vaccination and inoculation against influenza (V04.81), BMI 35.0-35.9, ADULT (V85.35) [facility] Office Visit On: 31-Dec-2011 10:40 Encounter Reason: Injections - The medication the patient is here to receive is vitamin B12 IM.Encounter Diagnosis: Other vitamin B12 deficiency anemia (281.1) End: 31-Dec-2011 10:47 [facility] Office Visit On: 24-Dec-2011 10:05 Encounter Reason: Cough - The onset of the cough has been sudden. The cough is characterized as productive of mucoid sputum. The amount of sputum produced is scanty. The cough occurs all the time. The symptoms are aggra End: 24-Dec-2011 13:48 vated by supine posture. The symptoms have been associated with headache, hoarseness, runny nose and wheezing, while the symptoms have not been associated with fever. the color of the sputum is yellowis h. Note for Cough : started with sore throat,then cold sores, then cough not going away, astma history Encounter Diagnosis: Cough (786.2), Wheezing (786.07), ASTHMA, UNSPECIFIED, WITH ACUTE EXACERBATION (493.92) [facility] Office Visit On: 29-Oct-2011 11:34 Encounter Reason: Procedure - Pt here to have a skin tag removed from left upper thigh and cryosurgery on some facial skin lesions.Encounter Diagnosis: Anemia(285.9), Actinic keratosis (702.0), Lesion-Unknown behavior (238.2) End: 29-Oct-2011 21:56 [facility] Phone Encounter On: 26-Sep-2011 9:50 Encounter Diagnosis: Anemia(285.9) End: 26-Sep-2011 9:55 [facility] Office Visit On: 24-Sep-2011 10:51 Encounter Reason: Follow up tests - Diagnostic tests include other (holter monitor- on paper). Current symptoms include dyspnea (only on fast exertion or inclines). Note for Follow up tests: she isnt sure if having pal End: 24-Sep-2011 11:44 pitations or asthma- gets intermittent sob- sees cardio this afternoon so will make copy of holter for her to take Encounter Diagnosis: Iron Deficiency Anemia,Unspecified (280.9), 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) , Colon Polyps, History of (V12.72), Lung nodule (518.89), PVC, OTHER PREMATURE BEATS (427.69), Hyperlipidemia, Mixed (272.2) [facility] Visit On: 17-Sep-2011 9:52 Encounter Reason: Follow up for chronic medical issues - The patient feels well with no complaints, has good energy level and is sleeping well (sometimes gets leg cramps but otherwise sleeps well). Patient has been compl End: 27-Sep-2011 10:05 iant with instructions. Current medication use: experiencing side effects (leg cramps off and on q hs from statin) and compliant with dosing regimen. Patient sleeps 6 hours per night. Nutrition: inappro priate diet and supplemental vitamins. The medical issues the patient is following up for include asthma, blood sugar issues and high cholesterol. fasting blood sugars : (120's to 170's). Note for Foll ow up for chronic medical issues: we discussed trying not to skip bp meds- risk for rebound htn stoke- sugar bit better- this summer bit more asthma- no airconditioning- in house when in air condiitoni ng ok- not using rescue inhaler alot- sees cardio next week - and neurologist and seizure doctor too- sugar bit better- no gerd- had eye exam in jan ok - she seeing jennifer- he wanted to wait a year to do followup ct nodule- wasnt taking vit d rx but is taking otc- and taking one a day, [ADDITIONAL REASON] Follow up, Laboratory Test Results - Date: (09/13/11). Encounter Diagnosis: Other vitamin B12 deficiency anemia (281.1), 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), Diabetes, Type II, controlled (250.00), Actinic keratosis (702.0), p[place], PVC, OTHER PREMATURE BEATS (427.69), Asthma (493.11), VITAMIN D DEFICIENCY, NOS (268.9), Lung nodule (518.89) [facility] Office Visit On: 22-Jul-2011 14:40 Encounter Reason: Injections - The medication the patient is here to receive is vitamin B12 IM.Encounter Diagnosis: Other vitamin B12 deficiency anemia (281.1) End: 22-Jul-2011 14:46 [facility] Visit On: 23-May-2011 11:05 Encounter Reason: Injections - The medication the patient is here to receive is vitamin B12 IM.Encounter Diagnosis: Other vitamin B12 deficiency anemia (281.1) End: 23-May-2011 14:20 [facility] Visit On: 14-May-2011 10:24 Encounter Reason: Follow up for chronic medical issues - The patient feels well with minor complaints (brittle deformed nails- from vitamin d deficiency? diabetes?), has good energy level and is sleeping well. Patient calix End: 14-May-2011 11:22 s been compliant with instructions. Current medication use: no side effects and compliant with dosing regimen. Patient sleeps 7 hours per night. Nutrition: inappropriate diet and supplemental vitamins. The medical issues the patient is following up for include asthma, blood sugar issues and high cholesterol. fasting blood sugars : (120's to 170's). Note for Follow up for chronic medical issues: she saw jennifer for her lungs- he did workup on lung nodules did lab and tb test- he didnt want to bx her- she said he wasnt concerned- she hasnt seen blood in stool-but couplemos ago had what sounded lke b out of diverticiulits that fresolved on own but had either blood in stool then or was from tomatoes she ate, [ADDITIONAL REASON] Follow up, Laboratory Test Results - Date: (05/07/11). Encounter Diagnosis: Diabetes, Type II, controlled (250.00), GERD (530.81), ASTHMA, UNSPECIFIED, WITH ACUTE EXACERBATION (493.92), Hyperlipidemia, Mixed (272.2), 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), Lung nodule (518.89), VITAMIN D DEFICIENCY, NOS (268.9), Other vitamin B12 deficiency anemia (281.1), Iron Deficiency Anemia,Unspecified (280.9), screening [facility] Visit On: 16-Apr-2011 10:03 Encounter Reason: Injections - The medication the patient is here to receive is vitamin B12 IM.Encounter Diagnosis: Other vitamin B12 deficiency anemia (281.1) End: 16-Apr-2011 10:34 [facility] Office Visit On: 18-Mar-2011 10:41 Encounter Reason: Injections - The medication the patient is here to receive is vitamin B12 IM.Encounter Diagnosis: Other vitamin B12 deficiency anemia (281.1) End: 18-Mar-2011 11:08 [facility] Office Visit On: 15-Feb-2011 11:43 Encounter Reason: Injections - The medication the patient is here to receive is vitamin B12 IM.Encounter Diagnosis: Other vitamin B12 deficiency anemia (281.1) End: 15-Feb-2011 11:57 [facility] Office Visit On: 14-Jan-2011 10:16 Encounter Reason: Follow up for chronic medical issues - The patient feels well with no complaints, has good energy level and is sleeping well. Patient has been compliant with instructions. Current medication use: experi End: 14-Jan-2011 11:22 encing side effects (muscle pain and cramps from tricor) and compliant with dosing regimen. Patient sleeps 7 hours per night. Nutrition: inappropriate diet and supplemental vitamins. The medical issues the patient is following up for include asthma, blood sugar issues and high cholesterol. fasting blood sugars : (120's to 170's). Note for Follow up for chronic medical issues: stopped tricor d/t musc el pain and cramps. Dr. Pierre increased pravastatin to 60mg daily.- she isnot using rescue inhaler weekly and bronchitis resolved- her sugar iomproving with more exercise- she saw Dr clements last month- and bp was ok- no gerrd-, [ADDITIONAL REASON] Follow up, Laboratory Test Results - Date: (11/2010- on paper). Encounter Diagnosis: DIABETES MELLITUS WITHOUT MENTION OF COMPLICATION; TYPE II OR UNSPECIFIED TYPE, UNCONTROLLED (250.02), Other vitamin B12 deficiency anemia (281.1), VITAMIN D DEFICIENCY, NOS (268.9), GERD (530.81), Lung nodule (518.89), Hyperlipidemia, Mixed (272.2), 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), Asthma (493.11) [facility] Visit On: 21-Nov-2010 11:03 Encounter Reason: Injections - The medication the patient is here to receive is vitamin B12 IM.Encounter Diagnosis: Other vitamin B12 deficiency anemia (281.1) End: 21-Nov-2010 11:06 [facility] Office Visit On: 24-Aug-2010 10:22 Encounter Reason: Cough - The onset of the cough has been acute (5 days). The cough is characterized as productive of mucoid sputum. The amount of sputum produced is half a cup per day. The cough occurs all the time. Th End: 24-Aug-2010 11:39 e symptoms are aggravated by supine posture. The symptoms have been associated with hoarseness and wheezing. the color of the sputum is clear (white).Encounter Diagnosis: Wheezing (786.07), Allergic rhinitis due to other allergen (477.8), ASTHMA, UNSPECIFIED, WITH ACUTE EXACERBATION (493.92), Laryngitis (464.00), Cough (786.2) [facility] Office Visit On: 03-Aug-2010 10:58 Encounter Reason: Follow up for chronic medical issues - The patient feels well with minor complaints (humidity bothering her asthma some days- rescue inhaler helps when uses), has good energy level and is sleeping well. End: 05-Aug-2010 23:11 Patient has been compliant with instructions. Current medication use: no side effects and compliant with dosing regimen. Patient sleeps 7 hours per night. Nutrition: inappropriate diet and supplemental vitamins. The medical issues the patient is following up for include asthma, blood sugar issues and high cholesterol. fasting blood sugars : (120's to 170's) and weight : (198). Note for Follow up for chronic medical issues: mom 3 mos ago so has had alot of stress back and forth to see mom- so sugar not much better and weight up 2 pounds bp ok- b12 is good- taking 4000 units a day of vit d - t hey just increased her pravastatin to 40- no gerd, [ADDITIONAL REASON] Follow up, Laboratory Test Results - Date: (07/31/10). Encounter Diagnosis: Hypertension (401.0), Allergic rhinitis due to other allergen (477.8), DIABETES MELLITUS WITHOUT MENTION OF COMPLICATION; TYPE II OR UNSPECIFIED TYPE, UNCONTROLLED (250.02), Other vitamin B12 deficiency anemia (281.1), Asthma (493.11), VITAMIN D DEFICIENCY, NOS (268.9), 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), GERD (530.81), Hyperlipidemia, Mixed (272.2), SOB (786.05) [facility] Nurse Visit On: 11-Jul-2010 9:56 Encounter Reason: Injections - The medication the patient is here to receive is vitamin B12 IM.Encounter Diagnosis: Other vitamin B12 deficiency anemia (281.1) End: 11-Jul-2010 12:05 [facility] Office Visit On: 20-Apr-2010 9:55 Encounter Reason: Follow up for chronic medical issues - The patient feels well with no complaints, has good energy level and is sleeping well. Patient has been compliant with instructions. Current medication use: experi End: 20-Apr-2010 11:02 encing side effects (ongoing muscle cramps off and on from statin) and compliant with dosing regimen. Patient sleeps 7 hours per night. Nutrition: inappropriate diet and supplemental vitamins. The medi jyoti issues the patient is following up for include asthma, blood sugar issues and high cholesterol. fasting blood sugars : (110's to 170's) and weight : (home- 196). Note for Follow up for chronic medic al issues: weight down 2 pounds and bp is good- alot of stress - elderly mom alot of medical issues- asthma unchanged- ddidnt get labs needs to - she doesnt want meds for thin bones knows at risk for fracture, [ADDITIONAL REASON] Follow up, Diagnostic Procedure Results - Diagnostic tests include other (bone dexa). Date: (04/04/10). 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) [facility] Office Visit On: 04-Apr-2010 10:51 Encounter Reason: Injections - The medication the patient is here to receive is vitamin B12 IM.Encounter Diagnosis: Other vitamin B12 deficiency anemia (281.1) End: 04-Apr-2010 10:56 [facility] Office Visit On: 16-Jan-2010 11:45 Encounter Reason: Injections - The medication the patient is here to receive is vitamin B12 IM.Encounter Diagnosis: Other vitamin B12 deficiency anemia (281.1) End: 16-Jan-2010 12:04 [facility] Office Visit On: 12-Dec-2009 10:07 Encounter Reason: Injections - The medication the patient is here to receive is vitamin B12 IM.Encounter Diagnosis: DIABETES MELLITUS WITHOUT MENTION OF COMPLICATION; TYPE II OR UNSPECIFIED TYPE, UNCONTROLLED (250.02) End: 12-Dec-2009 13:45 [facility] Office Visit On: 14-Nov-2009 11:03 Encounter Diagnosis: Actinic keratosis (702.0), Need for prophylactic vaccination and inoculation against influenza (V04.81) End: 14-Nov-2009 11:42 [facility] Office Visit On: 01-Nov-2009 8:28 Encounter Reason: Follow up for chronic medical issues - The patient feels well with minor complaints (Been having H/As lately.) ,has good energy level and is sleeping well. Patient has been compliant with instructions. End: 01-Nov-2009 9:24 Current medication use: experiencing side effects (Insurance comapnay changed to medicines and I dnt like it: Prevacid changed to Lansoprazole 30mg and Advair changed 500 to 250 (coughing more since the change) and Dr Pierre changed Crestor to Pravastatin d/t leg cramps.). Patient sleeps 6 hours per night. Nutrition: balanced diet and supplemental vitamins. The medical issues the patient is following up for include asthma ,blood sugar issues and high cholesterol. blood pressure range : ,fasting blood sugars : ,postprandial sugars : ,evening sugars : and weight :. Note for Follow up for chronic medical issues: the insurance changed her advair and now coughing moreand changed her gerd med to generic and now has diarrheaEncounter Diagnosis: Other vitamin B12 deficiency anemia (281.1), DIABETES MELLITUS WITHOUT MENTION OF COMPLICATION; TYPE II OR UNSPECIFIED TYPE, UNCONTROLLED (250.02), Asthma (493.11), Hypertension (401.0), Hyperlipidemia, Mixed (272.2), GERD (530.81), VITAMIN D DEFICIENCY, NOS (268.9), Lung nodule (518.89), Bronchitis,Acute (466.0), Diverticulitis (562.11), Diarrhea (787.91), Actinic keratosis (702.0), screen, postmenopausal without estrogen [facility] Office Visit On: 25-Aug-2009 11:14 Encounter Diagnosis: Other vitamin B12 deficiency anemia (281.1) End: 25-Aug-2009 11:53 [facility] Office Visit On: 13-Jul-2009 11:51 Encounter Reason: Injections - The medication the patient is here to receive is vitamin B12 IM. Encounter Diagnosis: Other vitamin B12 deficiency anemia (281.1) End: 16-Jul-2009 13:24 [facility] Office Visit On: 05-Jun-2009 13:34 Encounter Reason: Follow up for chronic medical issues - The patient feels well with minor complaints (headaches) ,has good energy level and is sleeping well. Patient has been compliant with instructions. Current medicat End: 05-Jun-2009 14:34 ion use: no side effects and compliant with dosing regimen. Patient sleeps 7 hours per night. Nutrition: balanced diet ,supplemental vitamins and low salt diet. The medical issues the patient is followi ng up for include All identified problems below ,asthma ,blood sugar issues ,gastric reflux ,high blood pressure ,high cholesterol ,osteoarthritis and other (vit d deficient). Note for Follow up for ch ronic medical issues: knee pain is gone- breathing is stable- no gerd - bp is good- the crestor makes hands cramp- so hasnt been taking, [ADDITIONAL REASON] Follow up, Laboratory Test Results - Date: (06/02/09). Note for Follow up, Labor atory Test Results: feels pretty good- still some afternoon fatigue- saw surgeon 3 weeks ago said this is all normal- next week has mri of brain again- she has been doing no exercise- and didnt remember to increase her crestor-- Encounter Diagnosis: Asthma (493.11), Hyperlipidemia, Mixed (272.2), GERD (530.81), Hypertension (401.0), DIABETES MELLITUS WITHOUT MENTION OF COMPLICATION; TYPE II OR UNSPECIFIED TYPE, UNCONTROLLED (250.02), Lung nodule (518.89), VITAMIN D DEFICIENCY, NOS (268.9), Other vitamin B12 deficiency anemia (281.1) [facility] Office Visit On: 24-May-2009 13:05 Encounter Diagnosis: Other vitamin B12 deficiency anemia (281.1) End: 24-May-2009 13:12 [facility] Office Visit On: 23-Dec-2008 13:10 Encounter Reason: Knee Pain - The onset of the knee pain has been sudden following no specific incident and has been occurring in a persistent pattern for 2 weeks. The course has been gradually improving. The knee pain i End: 12-Feb-2009 14:10 s moderate to severe. The knee pain is characterized as a dull aching (sometimes sharp). The knee pain is described as being located in the medial knee. The knee pain is aggravated by physical activity (walking ) and prolonged rest (when pt lays down at hs it hurts to lay the other leg on it). There were no relieving factors. The symptoms have been associated with muscle stiffness ,muscle swelling ,me dial pain ,painful ROM and decreased ROM, while the symptoms have not been associated with giving way ,joint swelling ,lateral pain ,warmth ,burning sensation ,fever ,chills ,difficulty arising from jovan ir or difficulty going up and down stairs. Note for Knee Pain: right knee no trauma- -- early on was swollen - tried aleve ibuprofen and tried biofreeze-- hurts while sitting and at night- stiff when starts to walkEncounter Diagnosis: Knee pain (719.46), Other vitamin B12 deficiency anemia (281.1) [facility] Office Visit On: 08-Nov-2008 11:05 Encounter Reason: Cough - The onset of the cough has been sudden (5days). The cough is characterized as productive of mucopurulent sputum. The amount of sputum produced is scanty. The cough occurs all the time. The sympt End: 08-Nov-2008 22:22 oms are aggravated by supine posture and exercise, but not by meals. The symptoms have been associated with headache ,hoarseness and runny nose, while the symptoms have not been associated with fever ,s ore throat or wheezing. the color of the sputum is clear and yellowish. Note for Cough: Pt. states I don't feel sick states had to use rescue inhaler approx. 3 times over weekend. no fever or chill s, no sweating. appetitie good. clear nasal drainage. states last night throat was scratchy and getting hoarse. No itching eyes. Denies seasonal allergies. Encounter Diagnosis: Allergic rhinitis due to other allergen (477.8), Bronchitis,Acute (466.0) , Cough (786.2), Asthma (493.11), GERD (530.81) [facility] Office Visit On: 03-Oct-2008 9:24 Encounter Reason: Follow up for chronic medical issues - The patient feels well with no complaints ,has good energy level and is sleeping well. Patient has been compliant with instructions. Current medication use: experi End: 08-Nov-2008 10:18 encing side effects (crestor giving her mucle cramps) and compliant with dosing regimen. Patient sleeps 7 hours per night. Nutrition: balanced diet ,supplemental vitamins and low salt diet. The medical issues the patient is following up for include All identified problems below ,asthma ,blood sugar issues ,gastric reflux ,high blood pressure ,high cholesterol ,osteoarthritis and other (vit d deficient ). Note for Follow up for chronic medical issues: seeing Dr Gaytan tomorrow- feeling better from bowels- not having the pain she had - still loose bowels- - no blood - no fever- her insurance wont jeremi barillas for vitd d rx- taking 1 crestor every other night becuase got cramps with higher doseEncounter Diagnosis: Diabetes, Type II, controlled (250.00), Diarrhea (787.91), GERD (530.81), VITAMIN D DEFICIENCY, NOS (268.9), Diverticulitis (562.11), Other vitamin B12 deficiency anemia (281.1), Hypertension (401.0), Hyperlipidemia, Mixed (272.2), 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), Lung nodule (518.89) [facility] Office Visit On: 15-Sep-2008 12:05 Encounter Reason: Abdominal pain - The onset of the pain has been gradual and has been occurring in a persistent pattern for 5 days. The course has been constant. The pain is described as a severe sharp pain ,crampy and End: 15-Sep-2008 13:49 pressure sensation. The pain is described as being located in the entire abdomen. The symptoms have no aggravating factors. The symptoms are relieved by bowel movements (having alot of problem with jelani ls, new problem for pt. Drinking prune juice and having small bowel movements). The symptoms have been associated with abdominal distention ,bloating ,constipation and nausea (friday). Previous evaluati ons have included endoscopy (colonoscopy 2007, removed polyp). Encounter Diagnosis: Abdominal Pain,Unspecified Site (789.00), Constipation(564.00), Nausea/Vomiting (787.01) [facility] Office Visit On: 07-Sep-2008 10:49 Encounter Diagnosis: Other vitamin B12 deficiency anemia (281.1) End: 07-Sep-2008 11:07 [facility] Historical Summary On: 11-Aug-2008 14:53 [facility] End: 11-Aug-2008 15:05 Office Visit On: 02-Aug-2008 15:30 Encounter Reason: Follow up, Laboratory Test Results - Date: (07/27/08). 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 The patient feels well with no complaints ,has good energy level and is sleeping well. Patient has been co End: 05-Jul-2008 17:21 mpliant with instructions. Current medication use: no side effects and compliant with dosing regimen. Patient sleeps 9 hours per night. Hospital procedures performed were other (brain surgery). 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), vit d deficiency, Other vitamin B12 deficiency anemia (281.1), near syncope, Fatigue (780.79), SOB (786.05), vertigo-- positional-- gave bpv exercises -- may use meclizine prn, Bronchitis,Acute (466.0), Asthma with Acute Exacerbation (493.02), Cough (786.2), Chronic obstructive asthma, with status asthmaticus (493.21), well female - pap pelvic and bimanual performed [facility] Historical Summary On: 20-Jun-2008 8:10 [facility] End: 20-Jun-2008 8:12 Office Visit On: 31-May-2008 8:54 Encounter Reason: Follow up, Diagnostic Procedure Results - Diagnostic tests include CT scan (chest-05/18/08) ,ECHO (05/19/08- on paper) and PFTS (05/18/08- on paper). Note for Follow up, Diagnostic Procedure Results: -- she End: 31-May-2008 22:18 is still having spells where feels like outoof it and - no palpitation or sob- feels nauseatedf- wierd feeling then it passes- had holter two mos ago had pvcs-- getting sharp headaches-will get when goes to get up, [ADDITIONAL REASON] Follow up, Laboratory Test Results - Date: (05/24/08). Encounter Diagnosis: Headache (784.0), near syncope, Lung nodule (518.89), Other vitamin B12 deficiency anemia (281.1), vit d deficiency, Hyperlipidemia, Mixed (272.2) [facility] Office Visit On: 10-May-2008 9:54 Encounter Reason: Follow up for chronic medical issues - The patient does not feel well (continued vertigo and fatigue and gets weird feeling all over like anxiety) ,has decreased energy level and is sleeping well. Patie End: 10-May-2008 19:36 nt has been compliant with instructions. Current medication use: no side effects and compliant with dosing regimen. Patient sleeps 7 hours per night. Nutrition: balanced diet ,supplemental vitamins and low salt diet. The medical issues the patient is following up for include All identified problems below ,asthma ,blood sugar issues ,gastric reflux ,high blood pressure ,high cholesterol ,osteoarthritis and other (anemia, vertigo, lung nodule, cad). fasting blood sugars : (130's to 150's) and weight :. , [ADDITIONAL REASON] Anxiety - The onset of the anxiety has been gradual and has been occurring in an intermittent pattern for 6 months. The course has been recurrent. The anxiety is characterized as nervousness. The phobia is defined as claustrophobia. Precipitating factors include specific circumstan leodan. The symptoms have been associated with feeling of sadness ,headache and lightheadedness, while the symptoms have not been associated with agitation ,chest pain ,diarrhea ,hallucinations ,nausea ,pa lpitations ,panic attack ,sleep disturbance ,suicidal thoughts ,tremors or vomiting. Note for Anxiety: she gets this feeling like a blanket over her head- takes her breath away- lasts couple minutes - no palpaittatins- no chest pain- no dizzy-- first time happened while family there at [place] while family eating dinner - other time happened when her friend was talking about his open heart surgery - feels like may be panic or anxiety- she was at [facility] a few mos ago and he had her wear a heart monitor for the same sx - she apparently had pvcs - not with exertion but thinks holding fluid lat kp- she had stress test last year and told ok- dad and 2 cousins and thinks may be involved-- she doesnt want to take meds but crying alot too Encounter Diagnosis: DIABETES MELLITUS WITHOUT MENTION OF COMPLICATION; TYPE II OR UNSPECIFIED TYPE, UNCONTROLLED (250.02), Hyperlipidemia, Mixed (272.2), 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 history: Patient is not currently . Encounter Diagnosis: Other vitamin B12 deficiency anemia (281.1) End: 08-Apr-2008 14:41 [facility] Historical Summary On: 14-Mar-2008 18:45 [facility] End: 14-Mar-2008 18:46 Office Visit On: 11-Mar-2008 11:22 Encounter Diagnosis: Other vitamin B12 deficiency anemia (281.1) End: 11-Mar-2008 12:21 [facility] Office Visit On: 01-Feb-2008 11:21 Encounter Reason: Injections - The medication the patient is here to receive is vitamin B12 IM. history: Patient is not currently . Encounter Diagnosis: Other vitamin B12 deficiency anemia (281.1) End: 01-Feb-2008 11:31 [facility] Nurse Visit (Non-[place]) On: 01-Jan-2008 9:48 Encounter Diagnosis: Other vitamin B12 deficiency anemia (281.1) End: 01-Jan-2008 11:54 [facility] Office Visit On: 03-Dec-2007 10:47 Encounter Diagnosis: Other vitamin B12 deficiency anemia (281.1) End: 04-Dec-2007 7:13 [facility] Office Visit On: 26-Nov-2007 11:30 Encounter Diagnosis: Other vitamin B12 deficiency anemia (281.1) End: 26-Nov-2007 20:43 [facility] Nurse Visit On: 19-Nov-2007 10:38 Encounter Reason: Injections - The medication the patient is here to receive is vitamin B12 IM. history: Patient is not currently . Encounter Diagnosis: Anemia(285.9) End: 19-Nov-2007 10:50 [facility] Nurse Visit On: 12-Nov-2007 9:11 Encounter Reason: Injections - The medication the patient is here to receive is vitamin B12 IM. history: Patient is not currently . Encounter Diagnosis: Other vitamin B12 deficiency anemia (281.1) End: 12-Nov-2007 9:17 [facility] Office Visit On: 05-Nov-2007 11:32 Encounter Diagnosis: Anemia(285.9) End: 05-Nov-2007 23:06 [facility] Office Visit On: 05-Nov-2007 10:33 Encounter Reason: Injections - The medication the patient is here to receive is vitamin B12 IM. history: Patient is not currently . Encounter Diagnosis: Anemia(285.9) End: 05-Nov-2007 10:56 [facility] Office Visit On: 30-Oct-2007 10:33 Encounter Reason: Follow up for chronic medical issues - The patient feels well with minor complaints (dizziness) ,has decreased energy level and is sleeping well. Patient has been compliant with instructions. Current il End: 01-Nov-2007 22:32 dication use: no side effects and compliant with dosing regimen. Patient sleeps 6 hours per night. Nutrition: inappropriate diet and supplemental vitamins. The medical issues the patient is following up for include All identified problems below ,asthma ,blood sugar issues ,gastric reflux ,high blood pressure ,high cholesterol ,osteoarthritis and other (cad, anemia). fasting blood sugars : (110's to 13 0's but when not feeling well it went to 140's) and weight :. Note for Follow up for chronic medical issues: anemia--she is not having abdominal pain - or blood in stool - had colonsocopy last year, [ADDITIONAL REASON] Follow up, Laboratory Test Results - Date: (10/26/07). , [ADDITIONAL REASON] Dizziness/ - The onset of the dizziness/ has been gradual and has been occurring in an intermittent pattern for months. The course has been recurrent. The dizziness/ is characterized as lightheadedness and feeling in the head. The dizziness/ is precipitated by position change and h ead turning. The symptoms have been associated with nausea, while the symptoms have not been associated with ear infection ,fever ,headache ,loss of balance ,loss of hearing ,palpitations ,syncope ,tinn itus or vomiting. Past medical history : diabetes. The dizziness/ is relieved by keeping head still and laying down. Note for Dizziness/: it is primarily vertigo-- only happens with certain position- no double vision or weakness or numnbess Encounter Diagnosis: Diabetes, Type II, controlled (250.00), Hypertension (401.0), Asthma (493.11), Hyperlipidemia, Mixed (272.2), GERD (530.81), Coronary Artery Disease (414.00), Anemia(285.9), Carotid Bruits (785.9), vertigo-- positional-- gave bpv exercises -- may use meclizine prn [facility] Historical Summary On: 20-Oct-2007 11:51 [facility] End: 20-Oct-2007 11:52 Office Visit On: 07-Sep-2007 10:35 Encounter Reason: Vertigo - The onset of the vertigo has been acute and has been occurring in a persistent pattern for 3 days. The course has been constant. The vertigo is characterized as spinning of the environment and End: 07-Sep-2007 11:08 lightheadedness. The vertigo is precipitated by position change. Encounter Diagnosis: Benign paroxysmal positional vertigo (386.11) [facility] Phone Encounter On: 17-Aug-2007 9:45 [facility] End: 17-Aug-2007 9:46 Office Visit On: 24-Jul-2007 10:36 Encounter Reason: Follow up for chronic medical issues - The patient feels well with minor complaints (Has questions regarding PT for knee pain). Patient has been compliant with instructions. Current medication use: no s End: 24-Jul-2007 11:31 eliseo effects. Patient sleeps 6 hours per night. Nutrition: balanced diet. The medical issues the patient is following up for include All identified problems below ,asthma ,blood sugar issues ,gastric ref lux ,high blood pressure ,high cholesterol and osteoarthritis. Note for Follow up for chronic medical issues: going to therapy and knee alot better-- her bp is great-- will give her one more rx of mob ic- she noted when she had all the knee pain her blood sugars were higher but now the sugars are better since pain gainEncounter Diagnosis: Knee pain (719.46), Asthma (493.11), Hyperlipidemia, Mixed (272.2), GERD (530.81), Diabetes, Type II, controlled (250.00), Hypertension (401.0), Anemia(285.9) [facility] Office Visit On: 15-Jun-2007 10:45 Encounter Reason: Knee Pain - The onset of the knee pain has been acute and has been occurring in a persistent pattern for 3 weeks. The course has been worsening. The knee pain is moderate to severe. The knee pain is jovan End: 15-Jun-2007 11:12 racterized as a dull aching. The knee pain is described as being located in the medial knee. The knee pain is aggravated by any movement. The knee pain is relieved by medication (notices moderate relief with use of Aleve). Note for Knee Pain: RIGHT KNEE-- pain- no trauma-- she had [place]-- and next day knee started hurting-- she didnt twist it- she has had some help with geovani ve-- some swellling- hurts at night-- hurts even with sitting-- hurts all the time-- no other joint sx except right ankle she broke in past-- steps hurts- hurt to pressure on but now not as badEncounter Diagnosis: Knee pain (719.46) [facility] Office Visit On: 03-Apr-2007 12:11 Encounter Reason: Follow up for chronic medical issues - The patient feels well with minor complaints (cough) and has good energy level. Patient has been compliant with instructions. Current medication use: experiencing End: 03-Apr-2007 12:50 side effects (cramping in legs and arms from statins) and compliant with dosing regimen. Nutrition: inappropriate diet. The medical issues the patient is following up for include All identified problems below ,asthma ,blood sugar issues ,gastric reflux ,high blood pressure ,high cholesterol ,osteoarthritis and other (cough, anemia, cad). fasting blood sugars : (100's to 130's) ,postprandial sugars : ( 140's to 150's) and weight :. Note for Follow up for chronic medical issues: father just on friday- and mom just in for pneumonia- she is going to try flush free niacin--and encouraged her to watch carbs- and sweets , [ADDITIONAL REASON] Follow up, Laboratory Test Results - Date: (03/31/07). Encounter Diagnosis: Diabetes, Type II, controlled (250.00), Hypertension (401.0), Asthma (493.11), Hyperlipidemia, Mixed (272.2), Bronchitis,Acute (466.0), Lung nodule (518.89) [facility] Office Visit On: 29-Dec-2006 8:22 Encounter Reason: Cough - The onset of the cough has been gradual. The cough is characterized as productive of mucopurulent sputum. The amount of sputum produced is less than a half a cup per day. The cough occurs all th End: 29-Dec-2006 8:54 e time. The symptoms have been associated with hoarseness ,runny nose and wheezing, while the symptoms have not been associated with fever ,headache or sore throat. the color of the sputum is yellowish. Note for Cough: dad diagnosed with staph pneumonia this week and she did have contact-- she was sick early last weekEncounter Diagnosis: Bronchitis,Acute (466.0) [facility] Office Visit On: 21-Nov-2006 9:04 Encounter Reason: Follow up for chronic medical issues - The patient feels well with no complaints ,has good energy level and is sleeping well. Patient has been compliant with instructions. Current medication use: experi End: 21-Nov-2006 9:48 encing side effects (leg cramps from statin) and compliant with dosing regimen. Nutrition: inappropriate diet and supplemental vitamins. The medical issues the patient is following up for include All id entified problems below ,asthma ,blood sugar issues ,gastric reflux ,high blood pressure ,high cholesterol ,osteoarthritis and other (cad). blood pressure range : (120's/60's) ,fasting blood sugars : (1 00's to 130's) ,postprandial sugars : (130's) and weight :. Note for Follow up for chronic medical issues: bps have been great at home 120/70 but forgot pills yesterday - she is getting cramps in legs she thinks from statins at night- no blood in stool- just had colonoscopy in the last year- no notice blood in stool, [ADDITIONAL REASON] Follow up, Laboratory Test Results - Date: (11/14/06). Encounter Diagnosis: Diabetes, Type II, controlled (250.00), GERD (530.81), Hyperlipidemia, Mixed (272.2), Hypertension (401.0), Lung nodule (518.89), Asthma (493.11), Anemia(285.9) [facility] Office Visit On: 26-Sep-2006 11:01 Encounter Reason: Follow up, Diagnostic Procedure Results - Diagnostic tests include CT scan (chest). Date: (08/25/06- on face sheet). Note for Follow up, Diagnostic Procedure Results: cough is significantly improved an End: 26-Sep-2006 11:49 d so is hoarseness -she feels the singulair may have been big help-- she doesnt really want to take advair because of the black box warningEncounter Diagnosis: Hypertension (401.0), Asthma (493.11), Lung nodule (518.89) [facility] Office Visit On: 02-Sep-2006 9:08 Encounter Diagnosis: Lesion-Unknown behavior (238.2) End: 03-Sep-2006 8:47 [facility] Office Visit On: 15-Aug-2006 10:24 Encounter Reason: Follow up for chronic medical issues - The patient feels well with minor complaints (still has mild cough) ,has good energy level and is sleeping well. Patient has been compliant with instructions. Curr End: 15-Aug-2006 11:48 ent medication use: experiencing side effects (myalgia's from statin) and compliant with dosing regimen. Nutrition: balanced diet and supplemental vitamins. The medical issues the patient is following u p for include All identified problems below ,asthma ,blood sugar issues ,gastric reflux ,high blood pressure ,high cholesterol and osteoarthritis. blood pressure range : ,fasting blood sugars : and weig ht :. Note for Follow up for chronic medical issues: forgot bp meds yesterday am- bps at home runnin 120/60 - cant tolerate niacin- she is not walking routinely-- -- she is not watching her carbs so d iscussed this as well- chest xray- did have fall on ice years ago- did hurt her back, [ADDITIONAL REASON] Cough - The onset of the cough has been gradual (since ). The cough is ch aracterized as dry. The cough occurs all the time. There has been no associated dysphagia ,fever ,headache ,hoarseness ,runny nose or sore throat. 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 The cough is characterized as productive of mucoid sputum (white - often). The amount of sputum produced is less than a half a c End: 25-Jun-2006 11:02 up per day. The cough occurs all the time. The symptoms are aggravated by supine posture. The symptoms have been associated with hoarseness and runny nose (clear- only when coughing), while the symptoms have not been associated with dyspnea ,edema ,long history of smoking ,sore throat or wheezing. the color of the sputum is clear (white). Note for Cough: Hx of severe pneumoniaEncounter Diagnosis: Chronic obstructive asthma, with status asthmaticus (493.21) [facility] Office Visit On: 14-May-2006 9:26 Encounter Reason: Follow up for chronic medical issues - The patient feels well with minor complaints (hoarse voice since had pneumonia). Patient has been compliant with instructions. Current medication use: experiencing End: 14-May-2006 10:33 side effects (Tricor- muscle cramps in legs). Patient sleeps 7 hours per night. Nutrition: balanced diet. The medical issues the patient is following up for include All identified problems below ,blood sugar issues ,gastric reflux ,high cholesterol and other (CAD, Hypertensive heart disease). Note for Follow up for chronic medical issues: thinks her asthma has not been perfect since pneumonia- mini mal cough but sob and wheezy still- still needs to use albuterol a couple times a weeksaw Dr Clements he told her to take the tricor in the am and crestor at night- has followup blood work in 3 mos- is bett er this way- he said her heart is doing well - she checks her bps at home and theya are good 120/70Encounter Diagnosis: GERD (530.81), Asthma (493.11), DIABETES MELLITUS WITHOUT MENTION OF COMPLICATION; TYPE II OR UNSPECIFIED TYPE, UNCONTROLLED (250.02), Hyperlipidemia, Mixed (272.2), 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) [facility] Office Visit On: 31-Mar-2006 9:55 [facility] End: 31-Mar-2006 10:38 Office Visit On: 30-Mar-2006 18:01 [facility] End: 30-Mar-2006 18:03 Office Visit On: 24-Mar-2006 12:04 [facility] End: 24-Mar-2006 13:31 Historical Summary On: 11-Feb-2006 14:04 Encounter Diagnosis: Prophylactic vaccination against Streptococcus pneumoniae (V03.82) End: 11-Feb-2006 14:05 [facility] Office Visit On: 11-Feb-2006 8:58 Encounter Reason: Follow up for chronic medical issues - The patient feels well with minor complaints (stress) ,has good energy level and is sleeping well. Patient has been compliant with instructions. Current medication End: 11-Feb-2006 10:03 use: experiencing side effects (leg cramps- statin). Patient sleeps 7 hours per night. Nutrition: balanced diet ,supplemental vitamins and low salt diet. The medical issues the patient is following up for include asthma ,blood sugar issues ,gastric reflux ,high blood pressure ,high cholesterol and osteoarthritis. fasting blood sugars : and weight :. Note for Follow up for chronic medical issues: bs running 140 2 hour pp and bs running 120-130 fasting- forgot to get labs- taking tricor qod and this is helping leg cramps and feels better in general- states never got pneumovax lastt year- did teresa cardoso vaccine- discussed needs follow up mammo - in 6 mos- going to start exercising routinelyEncounter Diagnosis: Hyperlipidemia, Mixed (272.2), 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), DIABETES MELLITUS WITHOUT MENTION OF COMPLICATION; TYPE II OR UNSPECIFIED TYPE, UNCONTROLLED (250.02), GERD (530.81), Coronary Artery Disease (414.00), Abnormal mammogram (793.80) [facility] Historical Summary On: 06-Nov-2005 16:32 [facility] End: 06-Nov-2005 16:33 Office Visit On: 16-Oct-2005 9:05 Encounter Reason: Annual Exam - Female - The patient feels well with no complaints. Nutrition: inappropriate diet. Patient sleeps 7 hours per night. The patient reports that she performs monthly self breast exam. Note fo End: 16-Oct-2005 10:11 r Annual Exam - Female: galina richards hasovariesEncounter Diagnosis: Hypertension (401.0), well female - pap pelvic and bimanual performed [facility] Historical Summary On: 06-Sep-2005 6:20 [facility] End: 06-Sep-2005 6:51 Payers Medicareral Carrier BenefitCignViv sherman guarantor
--- OUTSIDE RECORDS SUMMARY | 2018-02-18 04:11 | XMS RPT_ITS | Continuity of Care Document ---
:1940 Author Organization [facility] Address [address] [place] [address] Phone Care Team Providers Name Role Phone [...] to BID.Does not take pravachol becaue of [facility] lipid and cmp in 2 monthextensively counselled [...] (Z86.010, V12.72) Comments: Colonoscopy 06/09/12, 5 years, [id number]- adenoma- repeat in 5 years Status: Active [...] meninges (D42.9, 237.6) Comments: Dr Rivas in [place], 09/25, does MRI every year , not [...] improving Status: Active Unspecified Diagnosis Status: Active Vitamin [...] 30 days Quantity: 1 {Syringe} Refills: 3 Ordered:15-Dec-2017 Karen Uriostegui DO, DO, Kathleen Start : 15-Dec-2017 Active Comments:new dose Magnesium Oxide 400 MG [...] Lopez LPN Start : 31-Jul-2016 Active Pen [place] 5/16 31G X 8 MM Miscellaneous 1 (one) Misc Misc uad, 10 units in AM for 90 days Quantity: 100 {Each} Refills: 6 Ordered:13-Nov-2017 Moody MCFARLAND SelambestshahriarMoody Nia Start : 13-Nov-2017 Active Potassium Chloride Elise ER 20 MEQ Oral Tablet Extended Release 1 qd (20 MEQ) Active ProAir HFA 108 (90 Base) MCG/ACT Inhalation [...] days Quantity: 30 {Tablet} Refills: 4 Ordered:11-Oct-2015 Carol Reina LPN Start : 05-Jul-2015 Active ALBUTEROL, 90MCG/ACT (Inhalation [...] days Quantity: 100 {Strip} Refills: 3 Ordered:14-Jan-2014 ULYSSES Quiñones Start : 18-Aug-2013 End : 14-Jan-2014 Inactive [...] days Quantity: 14 {Capsule} Refills: 0 Ordered:30-Dec-2017 Mt OJEDA Carlotta Start : 30-Dec-2017 End : 06-Jan-2018 Inactive [...] bid for 0 days Refills: 0 Ordered:16-Jan-2016 Tracy Barnes End : 16-Jan-2016 Inactive MECLIZINE HCL, 12.5MG [...] days Quantity: 1 {Package} Refills: 0 Ordered:09-Jul-2013 Tracy Barnes Start : 21-Jun-2013 End : 09-Jul-2013 Inactive [...] qd for 0 days Refills: 0 Ordered:27-Feb-2016 Jose Carlos Reina LPNn L End : 27-Feb-2016 Inactive NASONEX, 50MCG/ACT [...] days Quantity: 1 {Aerosol_Soln} Refills: 3 Ordered:02-Nov-2012 Adriane Muhammad LPN Start : 17-Sep-2011 End : 02-Nov-2012 Inactive [...] End : 07-Nov-2016 Inactive VITAMIN D (ERGOCALCIFEROL), 35220MWWJ (Oral Capsule) 1 cap once a week (00606 UNIT) Inactive Vitamin D3 47114 UNIT Oral Tablet 1 (one) Tablet weekly [...] days Quantity: 90 {Misc} Refills: 3 Ordered:05-Jun-2009 Carol Reina LPN Start : 05-Jun-2009 End : 01-Nov-2009 Discontinued Comments:This order discontinued per [facility]. AMLODIPINE BESYLATE, 5MG (Oral Tablet) 1 Tablet qd for 0 days Quantity: 30 {Tablet} Refills: 3 Ordered:18-Dec-2012 Maylin Melendez DO Start : 18-Dec-2012 End : 18-Dec-2012 Discontinued Atenolol 100 MG Oral Tablet 1 tab Tablet qd for 90 days Quantity: 180 {Tablet} Refills: 3 Ordered:29-Nov-2016 Karen Uriostegui DO, DO, Kathleen Start : 29-Nov-2016 End : 29-Nov-2016 Discontinued Comments:per cardio AVALIDE, 300-25MG (Oral Tablet) 1 (one) Tablet Daily for 0 days Quantity: 90 {Tablet} Refills: 3 Ordered:16-Oct-2005 Monik Rushing Start : 16-Oct-2005 End : 15-Aug-2006 Discontinued AVALIDE, 300-25MG (Oral Tablet) 1 tab Tablet qd for 0 days Quantity: 90 {Tablet} Refills: 3 Ordered:02-Aug-2008 Maylin Melendez DO Start : 02-Aug-2008 End : 02-Aug-2008 Discontinued Cardizem CD 240 MG Oral Capsule Extended Release 24 Hour 1 (one) Capsule qd for 180 days Refills: 0 Ordered:28-May-2017 Sonja Salcido Start : 29-Nov-2016 End : 28-May-2017 Discontinued Comments:new dose and per cardio CARDIZEM, 90MG (Oral Tablet) 2 (two) Tablet qd at bedtime for 30 days Quantity: 30 {Tablet} Refills: 0 Ordered:18-Dec-2012 Maylin Melendez DO Start : 18-Dec-2012 End : 05-May-2013 Discontinued Comments:This order discontinued per [facility]. CRESTOR, 20MG (Oral Tablet) 11/2 Tablet qd for 0 days Quantity: 135 {Tablet} Refills: 4 Ordered:01-Nov-2009 Maylin Melendez DO Start : 01-Nov-2009 End : 01-Nov-2009 Discontinued DARVOCET-N 100, 100-650MG (Oral Tablet) 1 (one) Tablet q 6 hours prn for 0 days Quantity: 60 {Tablet} Refills: 0 Ordered:20-Apr-2010 Adriane Muhammad LPN Start : 23-Dec-2008 End : 24-Dec-2011 Discontinued Comments:This order discontinued per [facility]. DIOVAN HCT, 320-25MG (Oral Tablet) 1 (one) Tablet qd for 90 days Quantity: 90 {Tablet} Refills: 3 Ordered:8-Mar-2013 Maylin Melendez DO Start : 17-Apr-2012 End : 17-Apr-2012 Discontinued ERGOCALCIFEROL, 58689RLEE (Oral Capsule) 1 (one) Capsule q week for 0 days Quantity: 12 {Capsule} Refills: 1 Ordered:31-Aug-2012 Maylin Melendez DO Start : 31-Aug-2012 End : 31-Aug-2012 Discontinued [...] Quantity: 360 {Tablet} Refills: 3 Ordered:02-Mar-2014 Maylin Melendez DO Start : 02-Mar-2014 End : 02-Mar-2014 Discontinued GUAIATUSSIN AC, 100-10MG/5ML (Oral Syrup) 1-2 Teaspoon(s) q 6 hours for 0 days Quantity: 4 {Teaspoon(s)} Refills: 0 Ordered:25-Jun-2006 Monik Rushing Start : 25-Jun-2006 End : 15-Aug-2006 Discontinued INVOKAMET, 50/1000MG (Oral Tablet) (Free Text) 1 (one) Tablet bid for 0 days Quantity: 30 {Tablet} Refills: 0 Ordered:21-Oct-2014 Maylin Melendez DO Start : 21-Oct-2014 End : 21-Oct-2014 Discontinued Lansoprazole 30 MG Oral Capsule Delayed Release [address] QD for 90 days Quantity: 90 {Capsule} Refills: 3 Ordered:28-May-2017 Sonja Salcido Start : 24-Apr-2016 End : 28-May-2017 Discontinued LANTUS SOLOSTAR, 100UNIT/ML (Subcutaneous Solution Pen-injector) 30 Soln Pen-inj units once a day for 0 days Quantity: 3 {Unspecified} Refills: 3 Ordered:03-Apr-2015 Maylin Melendez DO Start : 03-Apr-2015 End : 03-Apr-2015 Discontinued [...] daily for 360 days Refills: 0 Ordered:17-Jan-2014 Mt OJEDASherrie E Start : 17-Jan-2014 End : 17-Jan-2014 Discontinued [...] Quantity: 100 {Strip} Refills: 3 Ordered:23-Dec-2014 Natalya Kohil Start : 23-Dec-2014 End : 23-Dec-2014 Discontinued ONGLYZA, 5MG (Oral Tablet) 1 Tablet qd for 90 days Quantity: 90 {Tablet} Refills: 3 Ordered:17-Jan-2012 Fast Layton MCFARLANDa A Start : 17-Jan-2012 End : 17-Jan-2012 Discontinued [...] days Quantity: 30 {Capsule} Refills: 3 Ordered:22-May-2015 Al Layton MCFARLANDa A Start : 22-May-2015 End : 22-May-2015 Discontinued Victoza 18 MG/3ML Subcutaneous Solution Pen-injector tad Soln Pen-inj qd for 0 days Quantity: 1 {Box} Refills: 0 Ordered:29-Nov-2016 Karen Uriostegui DO, DO, Kathleen Start : 29-Nov-2016 End : 29-Nov-2016 Discontinued Comments:0.6 sc qd for one week then1.2 sc qd for one week then 1.8 sc qdpt will switch to her tradjenta VITAMIN D (ERGOCALCIFEROL), 91507XFRV (Oral Capsule) 1 Capsule twice a week [...] 12-Jan-2013 screening Status: Inactive as of 14-Jan-2014 screening Status: Inactive as of 12-Jan-2013 SOB (R06.02, 786.05) 03-Aug-2010 Comments: had cardio workup - thnk lung related so will get her back to [facility] Status: Inactive as of 24-Apr-2016 Unspecified Diagnosis Status: Inactive as of 12-Jan-2013 Unspecified Diagnosis Status: Inactive as of 02-Mar-2014 vertigo-- positional-- gave bpv exercises -- june use meclizine prn Status: Resolved as of 28-Jun-2008 vit d deficiency Status: Inactive as of 03-Aug-2008 well female - pap pelvic and bimanual performed Status: Inactive as of 05-Jul-2008 Wheezing (R06.2, 786.07) Status: Resolved as of 02-Mar-2014 Procedures Procedure Dates Details Bone Density Study Completed Comments: 03-18-01 cataract left eye 2015 Completed cataract right eye 2015 Completed Last Pap Smear, Date Completed Comments: 11-30-02 Mammogram Completed Comments: 01-12-04 Date Value Details 19-Dec-2017 Surgery Visit Report Result: Comments: See Note; NOTES: [facility] [address] [place] [address] [place] [address] OFFICE VISIT Date of Service: 12/19/17 MR#: [id number] Acct: [id number] Name: COMFORT OLSON Rep #: [id number] : 1940 Provider: Je Ceron MD Age/Sex: 77/F Location: [facility] Status: Signed Intake Intake Visit Reasons: [...] PO BID 08/24/17 [History Confirmed 12/12/17] Methscopolamine [place] 5 mg PO BID 08/24/17 [History Confirmed [...] f ibrillation (Chronic) Atherosclerotic heart disease of [place] coronary artery without angina pectoris (Chronic) HLD [...] as an additional AV fistula at the [facility] site. On December 12, 2017 at the [facility] I performed a ultrasound-guided thrombin injection of [...] and Dr. Jonel Ceron M.D., F.A.C.S. 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; I72.9 Injury of right femoral artery, subsequent encounter S75.001D Encounter type: subsequent encounter Laterali ty: right 12/19/17 1453 <Electronically signed by Je Ceron MD> Date Je Ceron MD Cosigner Signature: Date _ (if applicable) CC: Jonel Rashid MD; Nia Uriostegui DO 15-Dec-2017 Arterial Duplex US, Limited Result: Comments: See Note; NOTES: [facility] Cardiovascular Services [address] [place] [address] Art Duplex US Unilat Lower Ext 12/15/17 1350 MR#: [id number] Acct: [id number] Name: COMFORT OLSON Rep #: [id number] : 1940 77 From: Je Ceron MD Attending Dr: JAYA GARZA Status: REG CLI Ordering Dr: Je Ceron MD Date: 12/15/17 Location: [facility] Sex: F C Admitted: R ludy For Study: F/U PSA thrombin injection Right Velocities 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 - .72 x .74 cm with a [...] Date Dictated: 12/15/17 1350 Date Transcribed: 12/15/17 170 Repairer Screen Crusher: Signed 12-Dec-2017 Arterial Duplex US, Limited Result: Comments: See Note; NOTES: [facility] Cardiovascular Services [address] [place] [address] Art Duplex US Unilat Lower Ext 12/12/17 1304 MR#: [id number] Acct: [id number] Name: COMFORT OLSON Rep #: [id number] : 1940 77 From: Je Ceron MD Attending Dr: Je Ceron MD Status: REG CLI Ordering Dr: Je Ceron MD Date: 12/12/17 Location: [facility] Sex: F C Admitted: Reason For Study: RT Groin pseudoanerysm thrombin injection Right Velocities Rt groin pseudoaneurysm successfully thrombosed s/p thrombin injection. Normal color flow and doppler signal HOTEL MANAGER and FV. P rocedure Exam performed in department. Interpretation Summary Successful thrombosis right femoral pseudoaneurysm __ Ordering Physician: Je Ceron Performed By: Sanaz Sheth RVT 12/12/17 140 Date Je Ceron MD CC: Nia Uriostegui DO; Je Ceron MD Date Dictated: 12/12/17 1304 Date Transcribed: 12/12/17 140 Repairer Screen Crusher: Signed 12-Dec-2017 Operative Report Result: Comments: See Note; NOTES: [facility] Medical Records Department [address] [place] [address] Operative Report 12/12/17 1359 MR#: [id number] Acct: [id number] Name: COMFORT OLSON Rep #: [id number] : 1940 77 From: Je Ceron MD [...] M.D., F.A.C.S. Type of Anesthesia:: Local 12/12/17 1407 <Electronically signed by Je Ceron MD> Baldo e Je Ceron MD CC: Nia Uriostegui DO; Je Ceron MD Signed 12-Dec-2017 Surgery Visit Report Result: Comments: See Note; NOTES: [facility] [address] [place] [address] OFFICE VISIT Date of Service: 12/12/17 MR#: [id number] Acct: [id number] Name: COMFORT OLSON Rep #: [id number] : 1940 Provider: Je Ceron MD Age/Sex: 77/F Location: [facility] Status: Signed Intake Intake Visit Reasons: Pseudoaneurysm [...] PO BID 08/24/17 [History Confirmed 12/12/17] Methscopolamine [place] 5 mg PO BID 08/24/17 [History Confirmed [...] fibrillation (Chronic) Atherosclerotic heart dis ease of [place] coronary artery without angina pectoris (Chronic) HLD [...] cardioversion (Acute 09/29/17) H/O craniotomy (Resolv ed 2008) History of ankle surgery (Resolved) History of left heart catheterization (LHC) (Resolved 11/25/16) History of tonsillectomy (Resolved) Family History Father CAD (coronary artery disease) Hy pertension Cancer skin Mother CAD (coronary artery disease) Hypertension Diabetes Brother CAD (coronary artery disease) Sister CAD (coronary artery disease) Myocardial infarction Social History Jensen catalan Status: Never smoker alcohol intake: never substance [...] cardiac ablation for atrial fibrillation performed at [facility] per Dr. Greene. Patient is about 10 days out. She complained of swelling and pain. She presented to Dr. Richmond's office yesterday. A ultrasound was obtained. This demonstrates a 2 cm pseudoaneurysm in the ri t groin but there is additional concern for [...] be pursued as well. Cc: Dr. Jonel Ceron M.D., F.A.C.S. 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 [place] [address] OFFICE VISIT Date of Service: 12/11/17 MR#: [id number] Acct: [id number] Patient: COMFORT OLSON Rep #: [id number] : 1940 Provider: Jonel Rashid MD Age/Sex: 77/F Location: [facility] Status: Signed Intake Intake Visit Reasons: PER [...] PO BID 08/24/17 [History Confirmed 10/31/17] Methscopolamine [place] 5 mg PO BID 08/24/17 [History Confirmed [...] -MATTIE Extrem Result: Comments: See Note; NOTES: [facility] Cardiovascular Services [address] [place] [address] Art Duplex US Bilat Lower Ext 12/11/17 1408 MR#: [id number] Acct: [id number] Name: COMFORT OLSON Rep #: [id number] : 1940 77 From: Je Ceron MD Attending Dr: Annemarie Parsons Status: REG CLI Ordering Dr: Jonel Rashid MD Date: 12/11/17 Location: [facility] Sex: F C Admitted: Reason For Study: Rt groin pain/ecchymosis - Right Velocities Left Velocities 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 - 1.2 x 1.2 cm with a velocity of 159.0 LT HOTEL MANAGER - .88 x .83 cm with a [...] Ceron MD CC: Jonel Rashid MD; Nia Urisotegui DO; Earl Parsons Date Dictated: 12/11/17 1408 Date Transcribed: 12/11/171818 Repairer Screen Crusher: Signed 04-Nov-2017 Operative Report Result: Comments: See Note; NOTES: [facility] Medical Records Department [address] [place] [address] Operative Report 11/03/17 1228 MR#: [id number] Acct: [id number] Name: COMFORT OLSON Rep #: [id number] : 1940 76 From: Patrick Ellsworth MD PCP: Nia Uriostegui DO Status: [facility] Y Location: [facility] Problem List (1) New onset atrial flutter Status: Acute (2) Atherosclerotic heart disease of [place] coronary artery without angina pectoris Status: Chronic Qualifiers: [place] vs. transplanted heart: [place] heart Qualified Code(s): I25.10 - Atherosclerotic heart disease of [place] nitin nary artery without angina pectoris Comment: 08/06/2004 CABG x2 VILLAGRAN side to side to second Diagonal and end to side to Anterior Descending artery in Sequential fashion. [facility]: 08/01/2004; 10/15/2011 (3) Cardiomyopathy in diseases classified [...] is a 76-year-old female who presented to [facility] for an elective outpat ient cardioversion due [...] cardioversion, at [address] Rashid at the bedside. This w as successful in achieving normal sinus rhythm. The patient was monitored until 12:10 PM, at which time the patient reached their baseline mental status and function. The patient tolerated the procedure well. COMPLICATIONS: None ESTIMATED BLOOD LOSS: None RECOMMENDATIONS: Okay to recover in usual fashion. Code Visit 9xxxx: Other Procedure See Report - [id number] 11/04/17 0525 <Electronically signed by Patrick Ellsworth MD> Date Patrick Ellsworth MD CC: Patrick Ellsworth MD; Jonel Rashid MD; Nia Uriostegui DO Signed 03-Nov-2017 Operative Report Result: Comments: See Note; NOTES: [facility] Medical Records Department [address] [place] [address] Operative Report 11/03/17 1214 MR#: [id number] Acct: [id number] Name: COMFORT OLSON Rep #: [id number] : 1940 76 From: Jonel Rashid MD PCP: Nia Uriostegui DO Status: REG [facility] Y Location: [facility] Operative Report Date of Procedure: 11/03/17 DC [...] Rashid MD CC: Jonel Rashid MD; Nia Moody Signed 08-Oct-2017 Cardiology Visit Report Result: Comments: See Note; NOTES: [facility] [address] [place], [place] [address]e. [address] [place] [address] OFFICE VISIT Date of Service: 10/08/17 MR#: [id number] Acct: [id number] Name: COMFORT OLSON Re p #: [id number] : 1940 Provider: Jonel Rashid MD Age/Sex: 76/F Location: [facility] Status: Signed HPI HPI Chief Complaint: Follow [...] 70 Intake Visit Reasons: ER 8-20 per VENDETTE Allergies No Known Allergies Allergy (Verified 10/08/17 [...] PO BID 08/24/17 [History Confirmed 10/05/17] Methscopolamine [place] 5 mg P O BID 08/24/17 [History [...] BID #180 tab 10/08/17 [Rx Confirmed 10/08/17] [facility] Medical History Left bundle branch block (Chronic) New onset atrial flutter (Acute 09/29/17) 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 Arrangements were made at the [facility] for the above to be considered. In [...] bundle branch block. 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) Coding Level of Care Code Off vis,est,level [...] <Electronically signed by Jonel Rashid MD> Date [place] Gay MD Cosigner Signature: Date (if applicable) CC: Nia Uriostegui 07-Oct-2017 12 Lead Electrocardiogram Result: Comments: See Note; NOTES: [facility] Cardiovascular Services [address] [place] [address] 12 Lead EKG 10/05/17 0149 MR#: [id number] Acct: [id number] Name: COMFORT OLSON Rep # : [id number] : 1940 76 From: Jonel Rashid MD [...] ECG Confirmed by GAY ROSAS, JONEL ([id number]), editor newspaper AMIRA CASTRO ([id number]) on 10/07/2017 2:45:19 PM Referred By: Jonel Rashid Confirmed By:JONEL RASHID MD 10/07/17 1445 Date _ Jonel Rashid MD CC: Emery Allen MD; Nia Thakkarolinda MCFARLAND Signed 07-Oct-2017 12 Lead Electrocardiogram Result: Comments: See Note; NOTES: [facility] Cardiovascular Services [address] [place] [address] 12 Lead EKG 10/05/17 0333 MR#: [id number] Acct: [id number] Name: COMFORT OLSON Rep # : [id number] : 1940 76 From: Jonel Rashid MD [...] ECG Confirmed by JONEL RASHID MD ([id number]), editor newspaper AMIRA CASTRO (56) on 10/07/2017 2:42:56 PM Referred By: Kathleen Rashid Confirmed By:JONEL RASHID MD 10/07/17 1442 Date Jonel Rashid MD CC: Emery Allen MD; Nia Uriostegui DO Signed 05-Oct-2017 Discharge Instruction Result: Comments: See Note; NOTES: [facility] Medical Records Department [address] [place] [address] Discharge Instruction 10/05/17 0440 MR#: [id number] Acct: [id number] Name: Liyah OLSON Rep #: [id number] : 1940 76 From: Emery Allen MD [...] Primary Care Provi latrell. Call [facility] ([phone]) or report to the closest Emergency Room. Call 911 if necessary. 10/05/17 0528 <Electronically signed by Emery Allen MD> Date ____ Emery Allen MD Cosigner Signature (If Indicated): Date CC: Nia Uriostegui DO 05-Oct-2017 Emergency Department Summary Result: Comments: See Note; NOTES: [facility] Medical Records Department [address] [place] [address] Emergency Department Summary 10/05/17 0435 MR#: [id number] Acct: [id number] Name: COMFORT OLSON Rep #: [id number] : 1940 76 From: Emery Allen MD [...] flutter This not e was generated with [employer] dictation software. It may contain incorrect words, [...] your Primary Care Provider. Call [facility] ([phone]) or report to the closest Emergency Room. Call 911 if necessary. 10/05/17 0528 &#60 ;Electronically signed by Emery Allen MD> Date Emery Allen MD Cosigner Signature (If Indicated): Date CC: Nia Uriostegui DO 05-Oct-2017 Chest 1 View (Portable) Result: Comments: See Note; NOTES: [facility] Imaging Services [address] [place] [address] Chest 1 View (Portable) MR#: [id number] Acct: [id number] Name: COMFORT OLSON Rep #: [id number] : 1940 F 76 From: Chris Dwyer MD PCP: Nia Uriostegui DO Status: REG ER Study: Chest 1 View (Portable) Date of Exam: 10/05/17 Exam# [id number] Ordering Dr: Emery Allen MD STUDY: X-R [...] of the upper abdomen. ORDER # : [id number] RAD/Chest 1 View (Portable) IMPRESSION: Mild cardiomegaly. Minimal persistent left basilar atelectasis. No evidence for acute cardiopulmonary pathology. Electronically Signed: Chris Dwyer MD at 2:42 EDT , Service support , CC: Emery Allen MD; Nia Uriostegui DO Repairer Screen Crusher: Signed 03-Oct-2017 12 Lead Electrocardiogram Result: Comments: See Note; NOTES: [facility] Cardiovascular Services [address] [place] [address] 12 Lead EKG 10/02/17 1353 MR#: [id number] Acct: [id number] Name: COMFORT OLSON Rep # : [id number] : 1940 76 From: Jonel Rashid MD Attending Dr: Jonel Rashid MD Status: REG CLI Ordering Dr: Richard Lombardo BREAST WORKER-C Date: 10/02/17 Location: [facility] Sex: F C Admitted: Test Reason : [...] ECG Confirmed by JONEL RASHID MD ([id number]), editor newspaper AMIRA CASTRO (56) on 10/03/2017 1:43:28 PM Referred By: Jonel Rashid Confirmed By:USMAN RASHID MD 10/03/17 1343 Date Jonel Rashid MD CC: JOSSELYN Lombardo; Jonel Rashid MD; Nia Uriostegui DO Signed 02-Oct-2017 Echo, Complete w/ Contrast Result: Comments: See Note; NOTES: [facility] Cardiovascular Services [address] [place] [address] Echo Complete W/ Contrast 10/02/17 1250 MR#: [id number] Acct: [id number] Name: DANA JaffeCOMFORT Rep #: [id number] : 1940 76 From: Jonel Rashid MD Attending Dr: Jonel Rashid MD Status: REG CLI Ordering Dr: Jonel Rashid MD Date: 10/02/17 Location: [facility] Sex: F C Admitted: Reason Fo r [...] Physician: Jonel Rashid erformed By: Rachel Oconnor, RDCS, RVT 10/02/17 777 Date Jonel Rashid MD CC: Jonel stubbs MD; Nia Uriostegui DO Date Dictated: 10/02/17 1250 Date Transcribed: 10/02/171742 Repairer Screen Crusher: Signed 02-Oct-2017 12 Lead Electrocardiogram Result: Comments: See Note; NOTES: [facility] Cardiovascular Services [address] [place] [address] 12 Lead EKG 09/29/17 1035 MR#: [id number] Acct: [id number] Name: COMFORT OLSON Rep # : [id number] : 1940 76 From: Antonio Tovar MD [...] ECG Confirmed by ZARA ROSAS, ANTONIO ([id number]), editor newspaper AMIRA CASTRO (56) on 10/02/2017 1:30:21 PM Refer red By: BOZENA Confirmed By:ANTONIO TOVAR MD 10/02/17 1330 Date Antonio Tovar MD CC: Nia Uriostegui DO; Jignesh Tello MD Signed 02-Oct-2017 12 Lead Electrocardiogram Result: Comments: See Note; NOTES: [facility] Cardiovascular Services [address] [place] [address] 12 Lead EKG 09/29/17 1020 MR#: [id number] Acct: [id number] Name: COMFORT OLSON Rep # : [id number] : 1940 76 From: Antonio Tovar MD [...] Abnormal ECG Confirmed by ANTONIO TOVAR MD ([id number]), editor newspaper AMIRA CASTRO (56) on 10/02/2017 1:27:54 PM Referred By: BOZENA Confirmed By:ANTONIO TOVAR MD 10/02/171326 Date Antonio Tovar MD CC: Nia Uriostegui DO; Jignesh Tello MD Signed 02-Oct-2017 12 Lead Electrocardiogram Result: Comments: See Note; NOTES: [facility] Cardiovascular Services [address] [place] [address] 12 Lead EKG 09/29/17904 MR#: [id number] Acct: [id number] Name: COMFORT OLSON Rep # : [id number] : 1940 76 From: Antonio Tovar MD [...] Abnormal ECG Confirmed by ANTONIO TOVAR MD ([id number]), editor newspaper AMIRA CASTRO (56) on 10/02/2017 1:27:13 PM Referred By: BOZENA Confirme d By:ANTONIO TOVAR MD 10/02/171326 Date Antonio Tovar MD CC: Nia Uriostegui DO; Jignesh Tello MD Signed 02-Oct-2017 12 Lead Electrocardiogram Result: Comments: See Note; NOTES: [facility] [facility] [address] [place] [address] 12 Lead EKG 09/29/17925 MR#: [id number] Acct: [id number] Name: COMFORT OLSON Rep # : [id number] : 1940 76 From: Antonio Tovar MD [...] ECG Confirmed by ZARA ROSAS, ANTONIO ([id number]), editor newspaper AMIRA CASTRO (56) on 10/02/2017 1:26:27 PM Referr ed By: BOZENA Confirmed By:ANTONIO TOVAR MD 10/02/17 1326 Date Antonio Tovar MD CC: Nia Uriostegui DO; Jignesh Tello MD Signed 29-Sep-2017 Emergency Department Summary Result: Comments: See Note; NOTES: [facility] Medical Records Department [address] [place] [address] Emergency Department Summary 09/29/17911 MR#: [id number] Acct: [id number] Name: COMFORT OLSON Rep #: [id number] : 1940 76 From: Jignesh Tello MD PCP: Nia Uriostegui DO Status: DEP ER - ER Visit Summary Date of Service: 09/29/17 Chief Complaint: Palpitations History of Present Illness: The patient is a [address] Rashid and Dr. Uriostegui. She reports that she [...] had synchronized cardioversion undertaken at [address] J. Followi ng this she had a significant pause [...] Sinus bradycardia. This note was generated with Fore[employer] Logic dictation software. It may contain incorrect words, [...] your Primary Care Provider. Call [facility] ([phone]) or report to the closest Emergency Room. Call 911 if necessary. 09/29/17 1708 <Electronically si gned by Jignesh Tello MD> Date Jignesh Tello MD Cosigner Signature (If Indicated): Date CC: Nia Uriostegui DO 29-Sep-2017 Chest 1 View (Portable) Result: Comments: See Note; NOTES: [facility] Imaging Services [address] [place] [address] Chest 1 View (Portable) MR#: [id number] Acct: [id number] Name: COMFORT OLSON Rep #: [id number] : 1940 F 76 From: John Babcock MD PCP: Nia Uriostegui DO Status: REG ER Study: Chest 1 View (Portable) Date of Exam: 09/29/17 Exam# [id number] Ordering Dr: Jignesh Tello MD STUDY: X-RAY [...] John Babcock MD at 9:55 EDT Tel [phone], Service support , CC: Nia Uriostegui DO; Jignesh Tello MD Repairer Screen Crusher: Signed 25-Sep-2017 Cardiology Visit Report Result: Comments: See Note; NOTES: [facility] [address] [place] [address] OFFICE VISIT Date of Service: 09/25/17 MR#: [id number] Acct: [id number] Name: COMFORT OLSON p #: [id number] : 1940 Provider: Jonel Rashid MD Age/Sex: 76/F Location: [facility] Status: Signed HPI HPI Chief Complaint: Follow [...] brachial Intake Visit Reasons: 6 M FU Byproducts Maker Required: No Accompanied by: nonw Is patient [...] BID 08/24/17 [History Confirmed 09/25/17] Met hscopolamine [place] 5 mg PO BID 08/24/17 [History Confirmed [...] PO QDAY tab 09/25/17 [History Confirmed 09/25/17] [facility] Medical History Other secondary pulmonary hypertension (Chronic) Cardiomyopathy in diseases classified elsewhere (Chronic) Other cerebral infarction (Chronic) Paroxysmal atrial fibrillation (Chroni c) Atrial enlargement, 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 4. Atherosclerosis of [place] coronary artery of [place] heart without angina pectoris I25.10 08/06/2004 CA BG x2 VILLAGRAN side to side to second Diagonal and end to side to Anterior Descending artery in Sequential fashion. 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 transplan joel heart: [place] heart Mixed hyperlipidemia E78.2 Hyperlipidemia type: mixed hyperlipidemia Coding Level of Care Code Off vis,est,level 4 Diagnoses Paroxysmal atrial fibrillation I48.0 Cardiomyopath y in diseases classified elsewhere I43 Essential hypertension I10 Hypertension type: essential hypertension Atherosclerosis of [place] coronary artery of [place] heart without angina pectoris I25.10 Nativ e vs. transplanted heart: [place] heart Mixed hyperlipidemia E78.2 Hyperlipidemia type: mixed hyperlipidemia 09/25/17 1029 <Electronically signed by Jonel Rashid MD> Date __ Jonel Villasenor Signature: Date (if applicable) CC: Nia Uriostegui DO 26-Aug-2017 12 Lead Electrocardiogram Result: Comments: See Note; NOTES: [facility] Cardiovascular Services [address] [place] [address] 12 Lead EKG 08/24/17 1336 MR#: [id number] Acct: [id number] Name: COMFORT OLSON Rep # : [id number] : 1940 76 From: Jonel Rashid MD [...] ECG Confirmed by JONEL RASHID MD ([id number]), editor newspaper AMIRA CASTRO (56) on 08/26/2017 1:37:24 PM Referred B y: YONI Confirmed By:JONEL RASHID MD 08/26/17 1337 Date Jonel Rashid MD CC: Nia Uriostegui DO; Alexis Kemp MD Signed 26-Aug-2017 12 Lead Electrocardiogram Result: Comments: See Note; NOTES: [facility] Cardiovascular Services [address] [place] [address] 12 Lead EKG 08/24/17 0956 MR#: [id number] Acct: [id number] Name: COMFORT OLSON Rep # : [id number] : 1940 76 From: Jonel Rashid MD [...] ECG Confirmed by JONEL RASHID MD ([id number]), editor newspaper AMIRA CASTRO (56) on 08/26/2017 12:50:18 PM Referred By: YONI Confirmed By:JONEL RASHID MD 08/26/17 1250 Date Jonel Rashid MD CC: Nia Uriostegui DO; Alexis Kemp MD Signed 24-Aug-2017 Emergency Department Summary Result: Comments: See Note; NOTES: [facility] Medical Records Department [address] [place] [address] Emergency Department Summary 08/24/17 1336 MR#: [id number] Acct: [id number] Name: COMFORT OLSON Rep #: [id number] : 1940 76 From: Alexis Kemp MD [...] coronary disease This note was generated with Forensic Logic dictation software. It may contain in correct words, spelling, and punctuation that were not noted in review of the chart prior to signing ED Disposition - Plan for ED Patient: Disposition: Home or Assisted Living Chief Complaint: Shortn ess of Breath Instructions: ED Paroxysmal Atrial Flutter Referrals: Nia Uriostegui DO [Primary Care Provider] - Jonel Rashid MD [STAFF PHYSICIAN] - 5-7 Days What to do if you have Problems For any increased pain, shortness of breath, bleeding, nausea or vomiting, chest pain, or any unexpected problems, contact your Primary Care Provider. Call [facility] ([phone]) or report to the [facility] Emergency Room. Call 911 if necessary. 08/24/17 1340 <Electronically signed by Alexis Kemp MD> Date Aleixs Villasenor Signdanutau re (If Indicated): Date CC: Jonel Rashid MD; Nia Uriostegui DO 24-Aug-2017 Chest PA and Lateral Result: Comments: See Note; NOTES: [facility] Imaging Services [address] [place] [address] Chest PA and Lateral MR#: [id number] Acct: [id number] Name: COMFORT OLSON Rep #: [id number] : 1940 F 76 From: Clyde Matute MD PCP: Nia Uriostegui DO Status: REG ER Study: Chest PA and Lateral Date of Exam: 08/24/17 Exam# [id number] Ordering Dr: Alexis eKmp MD STUDY: X-RAY CHEST R LUDY FOR [...] CC: Nia Uriostegui DO; Alexis Kemp MD Repairer Screen Crusher: Signed 02-Jun-2017 12 Lead EKG performed by [facility] Result: Comments: See Note; NOTES: [facility] [address] [place] [address] 12 Lead EKG performed by [facility] 06/02/17 1121 MR#: [id number] Acct: [id number] Name: COMFORT OLSON Rep #: [id number] : 1940 76 From: Annemarie BLOOD Attending Dr: Annemarie Parsons Status: DEP AMB Ordering Dr: Annemarie Parsons Date: 06/02/17 Location: [facility] [place] [place] Sex: F C Admitted: BMS/12 Lead EKG performed by [facility] ECG Report Interpretation Sinus Rhythm -Intraventricular conduction defect and left axis -possible anterior fas cicular block consider ventricular hypertrophy. - Nonspecific T-abnormality. ABNORMAL Electronically signed on 06/04/2017 at 14:14 by Jonel Rashid 06/04/17 1415 Date Annemarie BLOOD CC: Nia Uriostegui DO Date Dictated: 06/02/17 112 Date Transcribed: 06/02/171120 Repairer Screen Crusher: BARBY Signed 29-May-2017 Cardiology Visit Report Result: Comments: See Note; NOTES: [facility] [address] [place] [address] [address] [place] [address] OFFICE VISIT Date of Service: 05/26/17 MR#: [id number] Acct: [id number] Name: COMFORT OLSON p #: [id number] : 1940 Provider: Annemarie Parsons Age/Sex: 76/F Location: [facility] Status: Signed HPI HPI Details: COMFORT OLSON, [...] surgery in 2004. She had an VILLAGRAN sidi-cv-otxk to second diagonal and to anterior descending [...] (BMI) 33.3 Intake Visit Reasons: per Susi Byproducts Maker Required: No Accompanied by: NONE Is patient [...] PO DAILY 11/11/16 [History Confirmed 05/26/17] Methscopolamine [place] 5 mg PO BID 11/11/16 [History Confirmed [...] enlargement, left (Chronic) Atherosclerotic heart disease of [place] coronary artery without angina pectoris (Chronic) HTN [...] week for an EKG. 2. Atherosclerosis of [place] coronary artery of [place] heart without angina pectoris I25.10 08/06/2004 CABG x2 VILLAGRAN side to side to second Diagonal and end to side to Anterior [place] cending artery in Sequential fashion. [facility]: 08/01/2004; 10/15/2011 Plan - JEREMI Mcpherson . [...] to saving. Follow Up 1 Week (EKG) 05/26/17 (keep appt with VENDETTE) Coding Level of Care Code Off vis,est,level 4 Diagnos es Dyspnea on exertion R06.09 Atherosclerosis of [place] coronary artery of [place] heart without angina pectoris I25.10 Tangirnaq vs. transplanted heart: [place] heart Essential hypertension I10 Hypertension type: essential hypertension Mixed hyperlipidemia E78.2 Hyperlipidemia type: mixed hyperlipidemia Paroxysmal atrial fibrillation I48.0 Atrial fibrillation type: paroxysmal Coding Level of Care Code O ff vis,est,level 4 Diagnoses Dyspnea on exertion R06.09 Atherosclerosis of [place] coronary artery of [place] heart without angina pectoris I25.10 Tangirnaq vs. transplanted heart: [place] heart Essential hy pertension I10 Hypertension type: essential hypertension Mixed hyperlipidemia E78.2 Hyperlipidemia type: mixed hyperlipidemia Paroxysmal atrial fibrillation I48.0 Atrial fibrillation type: paroxysmal 05/28/17 1018 <Electronically signed by Annemarie Parsons PA> Date Annemarie BLOOD 05/29/17 1417<Electronically si gned by Jonel Rashid MD> Cosigner Signature: Date (if applicable) Jonel Rashid MD CC: Nia Uriostegui DO 26-May-2017 12 Lead EKG performed by [facility] Result: Comments: See Note; NOTES: [facility] [address] [place] [address] 12 Lead EKG performed by [facility] 05/26/17 1521 MR#: [id number] Acct: [id number] Name: COMFORT OLSON Rep #: [id number] : 1940 76 From: Annemarie BLOOD Attending Dr: Annemarie Parsons Status: DEP AMB Ordering Dr: Annemarie Parsons Date: 05/26/17 Location: [facility] [place] [place] Sex: F C Admitted: BMS/12 Lead EKG performed by [facility] ECG Report Interpretation Marked sinus Bradycardia -Poor R-wave progression - nonspecific -consider old anterior infarct. -Nonspecific ST depression -Nondiagnostic. ABNORMAL Electronically signed on 05/27/2017 at 08:40 by Jonel Rashid 05/27/17 0841 Date Annemarie BLOOD CC: Nia Uriostegui DO Date Dictated: 05/26/17 1521 Date Transcribed: 05/26/171520 Repairer Screen Crusher: BARBY Signed 16-May-2017 Office Visit Report Result: Comments: See Note; NOTES: [facility] Services [address] [place] [address] OFFICE VISIT Date of Service: 05/16/17 MR#: [id number] Acct: [id number] Patient: COMFORT OLSON Rep #: [id number] : 1940 Provider: Jonel Rashid MD Age/Sex: 76/F Location: [facility] Status: Signed Intake Intake Visit Reasons: EKG [...] SON Y 11/11/16 [History Confirmed 05/14/17] Methscopolamine [place] 5 mg PO BID 11/11/16 [History Confirmed [...] <Electronically signed by Annemarie BLOOD> Date Eliel Muñoz Cosigner Signature: Date (if applicable) CC: Sarkis Pam 16-May-2017 12 Lead EKG performed by B[facility] Result: Comments: See Note; NOTES: [facility] [address] [place] [address] 12 Lead EKG performed by [facility] 05/16/17 1044 MR#: [id number] Acct: [id number] Name: COMFORT OLSON Rep #: [id number] : 1940 76 From: Annemarie BLOOD Attending Dr: Gay ROSAS,Jonel Status: DEP AMB Ordering Dr: Annemarie Parsons Date: 05/16/17 Location: [facility] [place] [place] Sex: F C Adm itted: [facility]/12 Lead EKG performed by B[facility] Sinus Bradycardia -Poor R-wave progression -may be secondary to pulmonary isease consider old anterior infarct. Rightward P/QRS axis and rota tion possible pulmonary disease. ABNORMAL 05/16/17 1650 <Electronically signed by Annemarie BLOOD> Date Annemarie BLOOD CC: Nia Uriostegui DO Date Dictated: 05/16/17 104 Date Transcribed: 05/16/171043 Repairer Screen Crusher: BARBY Signed 16-May-2017 12 Lead EKG performed by [facility] Result: Comments: See Note; NOTES: [facility] [address] [place] [address] 12 Lead EKG performed by [facility] 05/16/17 1044 MR#: [id number] Acct: [id number] Name: COMFORT OLSON Rep #: [id number] : 1940 76 From: Annemarie BLOOD Attending Dr: Gay ROSAS,Jonel Status: DEP AMB Ordering Dr: Annemarie Parsons Date: 05/16/17 Location: [facility] Sex: F C Adm itted: BMS/12 Lead EKG performed by [facility] ECG Report Interpretation Sinus Bradycardia -Poor R-wave progression -may be secondary to pulmonary disease conside r old anterior infarct. Rightward P/QRS axis and rotation -possible pulmonary disease. ABNORMAL Electronically signed on 05/17/2017 at 18:31 by Jonel Rashid 05/17/17 1834 Date Annemarie BLOOD CC: Nia Uriostegui DO Date Dictated: 05/16/17 1044 Date Transcribed: 05/16/171043 Repairer Screen Crusher: BARBY Signed 14-May-2017 Cardiology Visit Report Result: Comments: See Note; NOTES: [facility] [address] [place] [address] OFFICE VISIT Date of Service: 05/14/17 MR#: [id number] Acct: [id number] Name: COMFORT OLSON Re p #: [id number] : 1940 Provider: Annemarie Parsons Age/Sex: 76/F Location: [facility] Status: Signed HPI HPI Details: COMFORT OLSON, is a 76 F who presents to the office today for an urgent appointm ent for increased shortness of breath. Patient does have a hospital of coronary artery disease with bypass surgery in 2004. 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 Ath erosclerosis of [place] coronary artery of [place] heart without angina pectoris I25.10 08/06/2004 CABG x2 VILLAGRAN side to side to second Diagonal and end to side to Anterior Descending artery in Sequential fashion. [facility]: 08/01/2004; 10/15/2011 Plan - JEREMI Mcpherson Stable, [...] Diagnoses Paroxysmal atrial fibrillation I48.0 Atherosclerosis of [place] coronary artery of [place] heart without angina pectoris I25.10 [place]naq vs. transplanted heart: [place] heart Essential hy pertension I10 Hypertension type: essential hypertension Mixed hyperlipidemia E78.2 Hyperlipidemia type: mixed hyperlipidemia Coding Level of Care Code Off vis,est,level 4 Diagnoses Paroxysmal atrial fibrillation I48.0 Atherosclerosis of [place] coronary artery of [place] heart without angina pectoris I25.10 Tangirnaq vs. transplanted heart: [place] heart Essential hypertension I10 Hypertension type: ess ential hypertension Mixed hyperlipidemia E78.2 Hyperlipidemia type: mixed hyperlipidemia 05/14/17 1718 <Electronically signed by Annemarie BLOOD> Date Annemarie BLOOD 05/14/17 1732<Electronically signed by Jonel Rashid MD> Cosigner Signature: Date (if applicable) Jonel Rashid MD CC: Nia Uriostegui DO 14-May-2017 12 Lead EKG performed by [facility] Result: Comments: See Note; NOTES: [facility] [address] [place] [address] 12 Lead EKG performed by B[facility] 05/14/171103 MR#: [id number] Acct: [id number] Name: COMFORT OLSON Rep #: [id number] : 1940 76 From: Annemarie BLOOD Attending Dr: Annemarie Parsons Status: DEP AMB Ordering Dr: Annemarie Parsons Date: 05/14/17 Location: [facility] [place] [place] Sex: F C Admitted: BMS/12 Lead EKG performed by [facility] Marked sinus Bradycardia -Intraventricular conduction defect -consider left entricular hypertrophy. -Lateral infarct -age undetermined. - -abnormality -Possible Inferior and lateral ischemia. ABNORMAL 05/15/17 1041 <Electronically signed by Annemarie BLOOD> Date M farhan BLOOD CC: Nia Uriostegui DO Date Dictated: 05/14/171103 Date Transcribed: 05/14/171103 Repairer Screen Crusher: BARBY Signed 14-May-2017 12 Lead EKG performed by [facility] Result: Comments: See Note; NOTES: [facility] [address] [place] [address] 12 Lead EKG performed by [facility] 05/14/171103 MR#: [id number] Acct: [id number] Name: COMFORT OLSON Rep #: [id number] : 1940 76 From: Annemarie BLOOD Attending Dr: Annemarie Parsons Status: DEP AMB Ordering Dr: Annemarie Parsons Date: 05/14/17 Location: [facility] [place] [place] Sex: F C Admitted: BMS/12 Lead EKG performed by [facility] ECG Report Interpretation Marked sinus Bradycardia -Intraventricular conduction defect -consider left ventricul ar hypertrophy. -Lateral infarct -age undetermined. - T-abnormality -Possible Inferior and lateral ischemia. ABNORMAL Electronically signed on 05/17/2017 at 18:31 by Jonel Rashid 05/17/17 1834 Date __ Annemarie BLOOD CC: Nia Uriostegui DO Date Dictated: 05/14/171103 Date Transcribed: 05/14/171103 Repairer Screen Crusher: BARBY Signed 09-May-2017 Office Visit Report Result: Comments: See Note; NOTES: [facility] Services [address] [place] [address] OFFICE VISIT Date of Service: 05/09/17 MR#: [id number] Acct: [id number] Patient: COMFORT OLSON Rep #: [id number] : 1940 Provider: Albert Kerr RN Age/Sex: 76/F Location: [facility] Status: Signed Intake Intake Visit Reasons: EKG 4 wk s/p per VENDETTE Allergies No Known Allergies Allergy (Verified 05/04 [...] PO DAILY 11/11/16 [History Confirmed 04/19/17] Methscopolamine [place] 5 mg PO BID 11/11/16 [History Confirmed [...] EKG to be reviewed by Dr. Rashid. 05/09/171609 <Electronically signed by Jonel Rashid MD> Date Jonel Rashid MD Cosigner Signature: Date (if applicable) CC: Annemarie Seaman 09-May-2017 12 Lead EKG performed by [facility] Result: Comments: See Note; NOTES: [facility] [address] [place] [address] 12 Lead EKG performed by [facility] 05/09/171109 MR#: [id number] Acct: [id number] Name: COMFORT OLSON Rep #: [id number] : 1940 76 From: Jonel Rashid MD Attending Dr: Albert Kerr RN Status: DEP AMB Ordering Dr: Jonel Rashid MD Date: 05/09/17 Location: [facility] Sex: F C Admitted: [facility]/12 Lead EKG performed by [facility] Sinus Rhythm -Nonspecific QRS widening and anterior fascicular block. -Poor -wave progression -nonspecific -consider old anterior infarct. -Nonspecific T d epression -Nondiagnostic. ABNORMAL 05/09/17 1610 <Electronically signed by Jonel Rashid MD> Date Jonel Rashid MD CC: Nia Rice Date Dictated: 05/09/171109 Date Transcribed: 05/09/171109 Repairer Screen Crusher: CO Signed 09-May-2017 12 Lead EKG performed by [facility] Result: Comments: See Note; NOTES: [facility] [address] [place] [address] 12 Lead EKG performed by [facility] 05/09/171109 MR#: [id number] Acct: [id number] Name: COMFORT OLSON Rep #: [id number] : 1940 76 From: Jonel Rashid MD Attending Dr: Albert Kerr RN Status: DEP AMB Ordering Dr: Jonel Rashid MD Date: 05/09/17 Location: [facility] Sex: F C Admitted: BMS/12 Lead EKG performed by [facility] ECG Report Interpretation Sinus Rhythm -Nonspecific QRS widening and anterior fascicular block. -Poor R-wave progression -nonspec ific -consider old anterior infarct. -Nonspecific ST depression -Nondiagnostic. ABNORMAL Electronically signed on 05/17/2017 at 18:31 by Jonel Rashid 05/17/17 1834 Date Jonel Rashid MD CC: Nia Uriostegui DO Date Dictated: 05/09/17 1110 Date Transcribed: 05/09/171109 Repairer Screen Crusher: CO Signed 06-May-2017 12 Lead Electrocardiogram Result: Comments: See Note; NOTES: [facility] Cardiovascular Services [address] [place] [address] 12 Lead EKG 05/04/177 MR#: [id number] Acct: [id number] Name: COMFORT OLSON Rep # : [id number] : 1940 76 From: Jonel Rashid MD [...] Abnormal ECG Confirmed by JONEL RASHID MD ([id number]), editor newspaper AMIRA CASTRO (56) on 05/06/2017 1:42:52 PM Referred By: DONY Confirmed By:JONEL RASHID MD 05/06/17 1342 Date Jonel Rashid MD CC: Natalya Napoles MD; Nia Uriostegui Signed 06-May-2017 12 Lead Electrocardiogram Result: Comments: See Note; NOTES: [facility] Cardiovascular Services [address] [place] [address] 12 Lead EKG 05/04/172044 MR#: [id number] Acct: [id number] Name: COMFORT OLSON Rep # : [id number] : 1940 76 From: Jonel Rashid MD [...] Abnormal ECG Confirmed by JONEL RASHID MD ([id number]), editor newspaper AMIRA CASTRO ([id number]) on 05/06/2017 1:08:29 PM Referred By: RICKY NAPOLES Confirmed By:JONEL RSAHID MD 05/06/17 1308 Date Jonel Rashid MD CC: Natalya Napoles MD; Nia Moody Signed 04-May-2017 Emergency Department Summary Result: Comments: See Note; NOTES: [facility] Medical Records Department [address] [place] [address] Emergency Department Summary 05/04/17 2259 MR#: [id number] Acct: [id number] Name: COMFORT OLSON Rep #: [id number] : 1940 76 From: Natalya Napoles MD [...] ED physician This note was generated with [employer] dictation software. It may contain incorre ct words, spelling, and punctuation that were not noted in review of the chart prior to signing ED Disposition - Plan for ED Patient: Chief Complaint: Palpitations Referrals: Nia Uriostegui DO [[facility] Provider] - What to do if you have Problems For any increased pain, shortness of breath, bleeding, nausea or vomiting, chest pain, or any unexpected problems, contact your Primary Care Pro vider. Call [facility] ([phone]) or report to the closest Emergency Room. Call 911 if necessary. 05/04/17 6188 <Electronically signed by Natalya Napoles MD> Date Natalya Napoles MD Cosigner Signature (If Indicated): Date CC: Nia Uriostegui DO 04-May-2017 Discharge Instruction Result: Comments: See Note; NOTES: [facility] Medical Records Department [address] [place] [address] Discharge Instruction 05/04/17 8970 MR#: [id number] Acct: [id number] Name: Liyah OLSON Rep #: [id number] : 1940 76 From: Natalya Napoles MD [...] your Primary Care Provider. Call [facility] ([phone]) or report to the closest Emergency Room. Call 911 if necessary. 05/04/17 2341 <Electronically signed by Natalya Napoles MD> Date Natalya mary MD Cosigner Signature (If Indicated): Date CC: Nia Uriostegui DO 04-May-2017 Chest 1 View (Portable) Result: Comments: See Note; NOTES: [facility] Imaging Services [address] [place] [address] Chest 1 View (Portable) MR#: [id number] Acct: [id number] Name: COMFORT OLSON Rep #: [id number] : 1940 F 76 From: Rafael Perez MD PCP: Nia Uriostegui DO Status: REG ER Study: Chest 1 View (Portable) Date of Exam: 05/04/17 Exam# [id number] Ordering Dr: Natalya Napoles MD STUDY: X [...] CC: Natalya Napoles MD; Nia Uriostegui DO Repairer Screen Crusher: Signed 19-Apr-2017 Emergency Department Summary Result: Comments: See Note; NOTES: [facility] Medical Records Department [address] [place] [address] Emergency Department Summary 04/19/17 1757 MR#: [id number] Acct: [id number] Name: COMFORT OLSON Rep #: [id number] : 1940 76 From: Deisi Ryan MD [...] with RVR This note was generated with Peekapak software. It may contain incorrect words, spelling, [...] blems, contact your Primary Care Provider. Call [facility] ([phone]) or report to the closest Emergency Room. Call 911 if necessary. 04/19/171930 <Electronically signed by Deisi moscoso MD> Date Deisi Ryan MD Cosigner Signature (If Indicated): Date CC: Nia Uriostegui DO 19-Apr-2017 Chest 1 View (Portable) Result: Comments: See Note; NOTES: [facility] Imaging Services [address] [place] [address] Chest 1 View (Portable) MR#: [id number] Acct: [id number] Name: COMFORT OLSON Rep #: [id number] : 1940 F 76 From: Thanh Ambriz MD PCP: Nia Uriostegui DO Status: PRE ER Study: Chest 1 View (Portable) Date of Exam: 04/19/17 Exam# [id number] Ordering Dr: Deisi Ryan MD STUDY: X- [...] CC: Deisi Ryan MD; Nia Uriostegui DO Repairer Screen Crusher: Signed 14-Mar-2017 Cardiology Visit Report Result: Comments: See Note; NOTES: [facility] [address] [place] [address] OFFICE VISIT Date of Service: 03/14/17 MR#: [id number] Acct: [id number] Name: COMFORT OLSON Re p #: [id number] : 1940 Provider: JOSSELYN Lombardo Age/Sex: 76/F Location: [facility] [place] [place] Status: Signed HPI 3 M FU: Details: [...] less than 30% stenosis. Patient returned to [facility] approximately one week later and showed a [...] Intak e Visit Reasons: 3 M FU Byproducts Maker Required: No Accompanied by: None Is patient [...] DAILY 11/11/16 [History Confirmed 02/28/17] M ethscopolamine [place] 5 mg PO BID 11/11/16 [History Confirmed [...] enlargement, left (Chronic) Atherosclerotic heart disease of [place] coronary artery without cynthia na pectoris (Chronic) [...] Assessment AND Plan 1. Essential hypertension I10 SEEMA Pan Saurabh t's blood pressures on the higher end [...] Cardiomyopathy in disea ses classified elsewhere I43 SEEMA Pan Patient's most recent echocardiogram showed an improved ejection fraction from 25% to 35%. Patient's activity level has been stable. Hopefully her b lood pressure and heart rate remain stable, which allows for continual up titration of medication to help for this. We will continue to monitor this while we wait for updated BP readings. 3. 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 [facility]: 08/01/2004; 10/15/2011 Plan - SEEMA Spence Patient's [...] reviewing the office note prior to sa lance. Follow Up 6 Months (VENDETTE) Coding Level of Care Code Off vis,est,level 3 Diagnoses Essential hypertension I10 Hypertension type: essential hypertension Cardiomyopathy in diseases classified elsew here I43 Atherosclerosis of [place] coronary artery of [place] heart without angina pectoris I25.10 [place] vs. transplanted heart: [place] heart Paroxysmal atrial fibrillation I48.0 Mixed hyperlipidemia E7 8.2 Hyperlipidemia type: mixed hyperlipidemia Coding Level of Care Code Off vis,est,level 3 Diagnoses Essential hypertension I10 Hypertension type: essential hypertension Cardiomyopathy in diseases c lassified elsewhere I43 Atherosclerosis of [place] coronary artery of [place] heart without angina pectoris I25.10 [place] vs. transplanted heart: [place] heart Paroxysmal atrial fibrillation I48.0 Mixed hy perlipidemia E78.2 Hyperlipidemia type: mixed hyperlipidemia 03/14/17 1154 <Electronically signed by Richard Lombardo BREAST WORKER-C> Date Richard Lombardo BREAST WORKER-C 03/14/17 1527<Electronically signed by Jonel Rashid MD> Cosigner Signature: Date (if applicable) Jonel Rashid MD CC: Nia Uriostegui DO 10-Mar-2017 Echo, Complete w/ Contrast Result: Comments: See Note; NOTES: [facility] Cardiovascular Services [address] [place] [address] Echo Complete W/ Contrast 03/10/17 1008 MR#: [id number] Acct: [id number] Name: COMFORT JONES Rep #: [id number] : 1940 76 From: Jonel Rashid MD Attending Dr: Jonel Rashid MD [facility] Order[facility] Dr: Jonel Rashid MD Date: 03/10/17 Location: [facility] Sex: F C Admitted: Reason Fo r [...] Rashid MD CC: Jonel Rashid MD; Nia Moody [place] Date Dictated: 03/10/17 1008 Date Transcr ibed: 03/10/17 1412 Repairer Screen Crusher: Signed 13-Nov-2016 CTA Chest W/WO Contrast Result: Comments: See Note; NOTES: [facility] Imaging Services [address] [place] [address] CTA Chest W/WO Contrast MR#: [id number] Acct: [id number] Name: COMFORT OLSON Rep #: [id number] : 1940 F 75 From: Charly Almendarez DO PCP: Nia Uriostegui DO Status: REG ER Study: CTA Chest W/WO Contrast Date of Exam: 11/13/16 Exam# [id number] Ordering Dr: Emery Allen MD STUDY: CTA [...] CC: Emery Allen MD; Nia Uriostegui DO Repairer Screen Crusher: Signed 11-Nov-2016 Chest 1 View (Portable) Result: Comments: See Note; NOTES: [facility] Imaging Services [address] [place] [address] Chest 1 View (Portable) MR#: [id number] Acct: [id number] Name: COMFORT OLSON Rep #: [id number] : 1940 F 75 From: Jorge Heramn MD PCP: Nia Uriostegui DO Status: REG ER Study: Chest 1 View (Portable) Date of Exam: 11/11/16 Exam# [id number] Ordering Dr: Jignesh Tello MD STUDY: X-RA [...] CC: Nia vo DO; Jignesh Tello MD Repairer Screen Crusher: Signed 16-Jan-2016 Chest PA and Lateral Result: Comments: See Note; NOTES: [facility] Imaging Services [address] [place] [address] [place] 4d Chest PA and Lateral MR#: [id number] Acct: [id number] Name: COMFORT OLSON Rep #: [id number] : 1940 F 75 From: John Babcock MD PCP: Balbir Cramer Status: REG CLI Study: Chest PA and Lateral Date of Exam: 01/16/16 Exam# [id number] Ordering Dr: Balbir Cramer STUDY: X-RAY CHEST [...] John Babcock MD at 13:26 EST Tel [phone], Service support [phone], CC: Balbir Cramer Repairer Screen Crusher: Signed 14-Dec-2014 Bilat Scrn Digital AND CAD Result: Comments: See Note; NOTES: [facility] Imaging Services [address] [place] [address] Verdana 4d Bilat Scrn Digital AND CAD MR#: [id number] Acct: [id number] Name: COMFORT OLSON Rep #: [id number] : 1940 F 74 From: John Babcock MD PCP: Maylin Melendez DO Status: REG CLI Study: Bilat Scrn Digital AND CAD Date of Exam: 12/14/14 Exam# [id number] Ordering D r: Maylin Melendez DO MAMMOGRAPHY [...] John Babcock MD at 14:05 EST Tel [phone], Service support [phone], CC: Maylin Melendez DO Repairer Screen Crusher: Signed 14-Dec-2014 Carotid Duplex Ultrasound Result: Comments: See Note; NOTES: [facility] Cardiovascular Services [address] [place] [address]49 Carotid Duplex Ultrasound 12/12/14 1007 MR#: [id number] Acct: [id number] Name: COMFORT OLSON Rep #: [id number] : 1940 74 From: Darian Anderson MD Attending Dr: Maylin Melendez DO Status: REG CLI Ordering Dr: Maylin Melendez DO Date: 12/12/14 Location: [facility] Sex: F C Admi tted: Rt. Velocities/BP [...] the left vertebral artery. Procedure Carotid Duplex 61840. Exam performed in department. Interpreta tion Summary Mild (<50%) stenosis right extracranial internal carotid. Mild (<50%) stenosis left extracranial internal carotid. Flow within the vertebral arteries is antegrade bilater ally. Ordering Physician: Maylin Melendez Performed By: Sanaz Sheth RVT Electronically si gned by: MD Darian Anderson on 12/14/2014 07:37 AM 12/14/1437 Date Darian Anderson MD CC: Maylin Melendez DO Date Dictated: 12/12/14 1007 Date Transcribed: 12/14/1437 Repairer Screen Crusher: Signed 25-Apr-2014 Nuclear Stress Test - Chemical Result: Comments: See Note; NOTES: [facility] Imaging Services [address] [place] [address] Nuclear Medicine Report MR#: [id number] Acct: [id number] Name: COMFORT OLSON Rep #: [id number] : 1940 F 73 From: Jonel Rashid MD PCP: Maylin Melendez DO Status: REG CLI Study: Nuclear Stress Test - Chemical Date of Exam: 04/25/14 Exam# [id number] Ordering Dr: Jonel Rashid MD P HARMACOLOGIC [...] CC: Jonel Rashid MD; Maylin Melendez DO Repairer Screen Crusher: CALIX Signed 31-Jan-2014 Spirometry (54475) Comments: Moderate restriction similar to previous Result: 14-Jan-2014 Chest PA and Lateral Result: Comments: See Note; NOTES: [facility] Imaging Services [address] [place] [address] Radiology Report MR#: [id number] Acct: [id number] Name: COMFORT OLSON Rep #: [id number] : 1940 F 73 From: John Babcock MD PCP: Maylin Melendez DO Status: REG CLI Study: Chest PA and Lateral Date of Exam: 01/14/14 Exam# [id number] Ordering Dr: Sherrie Amor STUDY: X-RAY CH [...] John Babcock MD at 14:58 EST Tel [phone], Service support [phone], RAD/Chest PA and Lateral IMPRESSION: Mild increased markings at the lung bases suggestive of linear atelectasis. Electronica lly Signed: John Babcock MD at 14:58 EST Tel [phone], Service support [phone], CC: Sherrie Amor; Maylin Melendez DO Repairer Screen Crusher: Signed 07-Sep-2013 Knee 4 or More Views Result: Comments: See Note; NOTES: [facility] Imaging Services [address] [place] [address] Radiology Report MR#: [id number] Acct: [id number] Name: COMFORT OLSON Rep #: [id number] : 1940 F 72 From: Yusuf Lopes PCP: Maylin Melendez DO Status: REG CLI Study: Knee 4 or More Views Date of Exam: 09/07/13 Exam# [id number] Ordering Dr: Maylin Melendez DO STUDY: X-RAY [...] Yusuf Lopes MD at 4:00 EDT Tel [phone] , Service support [phone] , CC: Maylin Melendez DO Repairer Screen Crusher: Signed 22-Aug-2013 Carotid Duplex Ultrasound Result: Comments: See Note; NOTES: [facility] Cardiovascular Services [address] [place] [address] Carotid Duplex Ultrasound 08/20/13 0945 MR#: [id number] Acct: [id number] Nam e: COMFORT OLSON Rep #: [id number] : 1940 72 From: Darian Anderson MD Attending Dr: Maylin Melendez DO Status: REG CLI Ordering Dr: Maylin Melendez DO Date: 08/20/13 Location: [facility] Sex: F C Admitted: Rt. Velocities/BP Lt. [...] the left vertebral artery. Procedure Carotid Duplex 61491. [facility] Interpretation Summary Mild (<50%) stenosis right extracranial internal carotid. Mild (<50%) stenosis left extracranial internal carotid. Flow within the vertebral arteries is antegrade bilaterally. Ordering Physician: Maylin Melendez Performed By: Sanaz Sheth RVT : Maylin Melendez DO Date Dictated: 08/20/1345 Date Transcribed: 08/22/1348 Repairer Screen Crusher: Signed 09-Jul-2013 Chest PA and Lateral Result: Comments: See Note; NOTES: [facility] Imaging Services [address] [place] [address] Radiology Report MR#: [id number] Acct: [id number] Name: COMFORT OLSON Rep #: [id number] : 1940 F 72 From: Jermaine Khan DO PCP: Maylin Melendez DO Status: REG CLI Study: Chest PA and Lateral Date of Exam: 07/09/13 Exam# [id number] Ordering Dr: Sherrie Amor STUDY: X-RAY CHEST [...] Jermaine Khan DO at 22:50 EDT Tel [phone] , Service support [phone], CC: Sherrie Amor; Maylin Melendez DO Repairer Screen Crusher: Signed 08-Jan-2013 PT Discharge Summary Result: Comments: See Note; NOTES: [facility] [address] [place] [address] [address] [place] [address] Fax REHABILITATION SERVICES DISCHARGE SUMMARY MR#: [id number] Acct: [id number] Name: COMFORT OLSON Rep #: [id number] : 1940 72 From: Farrukh Hull Referring Dr.: Maylin Melendez DO Status: REG RCR Eval [...] has. Farrukh Hull, PT T: NTS JOB: [id number] <Electronically signed by Farrukh Hull > 01/08/13 0648 CC: * Signed 18-Dec-2012 Inital Evaluation - PT Result: Comments: See Note; NOTES: [facility] [address] [place] [address] [address] [place] [address] Fax REHABILITATION SERVICES INITIAL EVALUATION MR#: [id number] Acct: [id number] Name: COMFORT OLSON Rep #: [id number] : 1940 72 From: Farrukh Hull Referring Dr.: Maylin Melendez DO Status: REG RCR Insurance: MEDICARE PAR T A B Eval Date: [employer] SU[employer]ENDENT BENEFIT PLAN DATE OF SERVICE: 12/18/2012 PHYSICIAN: [...] She has dizziness wi th left-sided Hallpike Daren test. No obvious nystagmus. Right- sided Hallpike Gastonia test is positive for dizziness of approximately [...] therapy. Farrukh Hull, PT T: NTS JOB: [id number] <Electronically signed by Farrukh Hull > 12/18/12 1151 CC: Signed For Medicare only, by signing this I certify the plan of care. 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 Status: Active Smoking Status Name Dates Details Never smoker Vital Signs Date Test Result Details 06-Nwg-285515:16 Temperature 96.8 f Pulse 94 /min Comments: [...] kg/m2 Body Surface Area Calculated 1.93 m2 26-Auz-169488:11 Pulse 70 /min Comments: Pattern: Regular Respiration [...] kg/m2 Body Surface Area Calculated 2 m2 :11 Comments: Recheck BP 158/82 Temperature 100 f [...] kg/m2 Body Surface Area Calculated 1.96 m2 6-Exp-147095:15 Temperature 98.6 f Comments: Method: Oral Pulse [...] 0.00 cm Results Date Description Value Details 9-Gmt-048639:39 Basic Metabolic Profile (BMP) Comments: [facility] [address] [place], [address] GAP 9 (Normal) Range: 5-15 CO2 26.0 [...] A.D.A. criteria.Please note revised GLUCOSE reference range rlvpjarlk98/02/2018. 1-Uil-860022:20 VITAMIN B-12 (CYANOCOBALAMIN) Comments: PATIENT NOT FASTINGPERFORMED BY: [facility] [address]ri1569 [facility] [id number] ([id number]) Vitamin B12 362 pg/mL (Normal) Range: 232-1245 4-Ibk-442546:42 HgA1C , Office (72243) HgA1C , Office 7.1 % (Normal) Range: 4.6 - 7.1 2-Ury-696307:42 Blood Glucose , Office (38003) Blood Glucose , Office 135 (Normal) 20-Hlu-80236:55 Basic Metabolic Profile (BMP) Comments: [facility] [address] [place], [address] GAP 14 (Normal) Range: 5-15 CO2 23.0 [...] A.D.A. criteria.Please note revised GLUCOSE reference range hpknbvkot83/02/2018. 72-Rbm-34970:55 CBC W/Diff, Automated Comments: [facility] [address] [place], [address] Absolute Lymph 2.08 {X10_3/ul} (Normal) Range: 0.83-4.51 [...] K/mm3 (Normal) Range: 4.4-11.0 :55 Troponin-I Comments: [facility] [address] [place], [place], [address] TROPONIN-I < 0.015 ng/mL (Normal) Comments: TROPONIN-I EXPECTED VALUES <0.045 Negative 0.045 - 0.590 Consistent with Cardiac Damage > OR = 0.600 Critical Value Not every elevated troponin is indicative of SC. T hesevalues should be used with clinical judgement in examiningthe patient's clinical picture for diagnosis. To establisha diagnosis of SC versus myocardial injury, there must be ademonstrated rise and/ or fall in the troponin values, inaddition to ischemic symptoms, EKG changes, new regionalwall motion abnormality, and/or angiographical evidence. PLEASE NOTE: REFERENCE RANGES EDITED 17:05 Basic Metabolic Profile (BMP) Comments: [facility] [address] [place], [place], [address] GAP 8 (Normal) Range: 5-15 CO2 28.0 [...] A.D.A. criteria.Please note revised GLUCOSE reference range ylnhpibfl76/02/2018. 14-Wwl-77728:05 CBC W/Diff, Automated Comments: [facility] [address] [place], [place], [address] Absolute Lymph 2.24 {X10_3/ul} (Normal) Range: 0.83-4.51 [...] 4.2-5.4 WBC 8.3 K/mm3 (Normal) Range: 4.4-11.0 39-Kgi-15114:05 Troponin-I Comments: [facility] [address] [place], [place], [address] TROPONIN-I 0.020 ng/mL (Normal) Comments: TROPONIN-I EXPECTED VALUES <0.045 Negative 0.045 - 0.590 Consistent with Cardiac Damage > OR = 0.600 Critical Value Not every elevated troponin is indicative of SC. T hesevalues should be used with clinical judgement in examiningthe patient's clinical picture for diagnosis. To establisha diagnosis of SC versus myocardial injury, there must be ademonstrated rise and/ or fall in the troponin values, inaddition to ischemic symptoms, EKG changes, new regionalwall motion abnormality, and/or angiographical evidence. PLEASE NOTE: REFERENCE RANGES EDITED 06/23/1727-Aug-201734-Vvw-400048:18 HgA1C , Office (81737) HgA1C , Office 7.6 % (Abnormal) Range: 4.6 - 7.1 98-Rql-234995:18 Blood Glucose , Office (13268) Blood Glucose , Office 142 (Normal) :51 Basic Metabolic Profile (BMP) Comments: [facility] [address] [place], [place], [address] GAP 9 (Normal) Range: 5-15 CO2 25.0 [...] A.D.A. criteria.Please note revised GLUCOSE reference range wvmmwaaex48/02/2018. :51 CBC W/Diff, Automated Comments: [facility] [address] [place], [address] Absolute Lymph 2.43 {X10_3/ul} (Normal) [...] 4.2-5.4 WBC 9.6 K/mm3 (Normal) Range: 4.4-11.0 05-Nei-00221:51 Troponin-I Comments: [facility] [address] [place], [address] TROPONIN-I < 0.015 ng/mL (Normal) Comments: TROPONIN-I EXPECTED VALUES <0.045 Negative 0.045 - 0.590 Consistent with Cardiac Damage > OR = 0.600 Critical Value Not every elevated troponin is indicative of SC. T hesevalues should be used with clinical judgement in examiningthe patient's clinical picture for diagnosis. To establisha diagnosis of SC versus myocardial injury, there must be ademonstrated rise and/ or fall in the troponin values, inaddition to ischemic symptoms, EKG changes, new regionalwall motion abnormality, and/or angiographical evidence. PLEASE NOTE: REFERENCE RANGES EDITED 06/23/1728-May-201733-Xue-566595:47 CALCIFEDIOL (69424) Comments: PATIENT NOT FASTINGPERFORMED BY: [facility]6[address] [facility] [id number] Vitamin D, 25-Hydroxy 20.2 ng/mL (Abnormal) Range: 30.0-100.0 Comments: Vitamin D deficiency has been defined by the [employer] ofMedicine and an Endocrine Society practice guideline as alevel of serum 25-OH vitamin D less than 20 ng/mL (1,2).The Endocrine Society went on to further define vitamin Dinsufficiency as a level between 21 and 29 ng/mL (2).1. IOM ([employer] of Medicine). 2010. Dietary reference intakes for calcium and D. [place]: The National Academies Press.2. Bobo MF, Estrellita STOCKTON, Maddi CALIX, et al. Evaluation, treatment, and prevention of vitamin D deficiency: an Endocrine Society clinical practice guideline. JCEM. 2010; 96(7):1911-30. 82-Ynp-923554:47 VITAMIN B-12 (CYANOCOBALAMIN) Comments: PATIENT NOT FASTINGPERFORMED BY: [facility] [id number] (92061) Vitamin B12 311 pg/mL (Normal) Range: 232-1245 60-Viv-510369:26 HgA1C , Office (92995) HgA1C , Office 7.3 % (Abnormal) Range: 4.6 - 7.1 70-Bkm-891872:26 Blood Glucose , Office (31651) Blood Glucose , Office 136 (Normal) 81-Ici-504042:56 Basic Metabolic Profile (BMP) Comments: 'TROP' Serial specimen #1, #2, #3, or #4: 1[facility] [address] [place], [address] GAP 11 (Normal) Range: 5-15 CO2 27.0 [...] A.D.A. criteria.Please note revised GLUCOSE reference range skfuouiof76/02/2018. 19-Qtn-443214:56 CBC W/Diff, Automated Comments: [facility] [address] [place], [place], [address] Absolute Lymph 3.30 {X10_3/ul} (Normal) Range: 0.83-4.51 [...] 4.2-5.4 WBC 9.3 K/mm3 (Normal) Range: 4.4-11.0 71-Elv-206371:56 Troponin-I Comments: 'TROP' Serial specimen #1, #2, #3, or #4: [address] [place] [address] [address] [place], [address] TROPONIN-I < 0.02 ng/mL (Normal) Comments: TROPONIN-I EXPECTED VALUES <0.05 NEGATIVE 0.06 - 0.59 AT RISK OF SC > OR = 0.60 SUGGEST SC 58-Jyd-423457:33 Basic Metabolic Profile (BMP) Comments: 'TROP' Serial specimen #1, #2, #3, or #4: [address] [place] [address] [address] [place], [address] GAP 10 (Normal) Range: 5-15 [...] criteria.Please note revised GLUCOSE reference range /02/2018. 14-Iyg-333108:33 CBC W/Diff, Automated Comments: [facility] [address] [place], [place], [address] Absolute Lymph 3.48 {X10_3/ul} (Normal) Range: 0.83-4.51 [...] 4.2-5.4 WBC 10.4 K/mm3 (Normal) Range: 4.4-11.0 36-Uwz-416054:33 Troponin-I Comments: 'TROP' Serial specimen #1, #2, #3, or #4: [facility] [address] [place], [place], [address] TROPONIN-I 0.14 ng/mL (Abnormal) Comments: TROPONIN-I EXPECTED VALUES <0.05 NEGATIVE 0.06 - 0.59 AT RISK OF SC > OR = 0.60 SUGGEST SC 3-Zfa-220427:16 HgA1C , Office (83493) HgA1C , Office 7.9 % (Abnormal) Range: 4.6 - 7.1 2-Xxy-194733:15 Blood Glucose , Office (40261) Blood Glucose , Office 166 (Normal) 7-Pyl-880971:25 Basic Metabolic Profile (BMP) Comments: Order Date: 12/13/16Order Info: 0667-1 - *BMPComments: Reason:[facility] [address] [place], [place], [address] GAP 9 (Normal) Range: 5-15 CO2 29.0 [...] 200 mg/dLsuggests DIABETES MELLITUS per A.D.A. criteria. 06-Wxr-748338:27 Basic Metabolic Profile (BMP) Comments: Order Date: 11/19/16Order Info: 0667-1 - *BMPComments: Reason:[facility] [address] [place], [place], [address] GAP 8 (Normal) Range: 5-15 CO2 27.0 [...] 200 mg/dLsuggests DIABETES MELLITUS per A.D.A. criteria. 98-Rsm-871454:27 Partial Thromboplast Time Comments: Order Date: 11/19/16Order Info: 6301-6 - *PT/INROrder Info: 05898-5 - *PTT-Partial Thromboplastin TimeWCommunity [facility] [address] [place], [place], [address] PTT 29.4 s (Normal) Range: 24.1-36.2 45-Lfs-073617:27 Prothrombin Time w/INR Comments: Order Date: 11/19/16Order Info: [id number] - *PT/INROrder Info: [id number] - *PTT-[facility] [address] [place], [place], [id number] INR 1.1 (Normal) PROTIME 13.4 s (Normal) Range: 11.7-14.9 :05 Basic Metabolic Profile (BMP) Comments: 'TROP' Serial specimen #1, #2, #3, or #4: [facility] [address]beyliu[address] [place], [place], [address] GAP 10 (Normal) Range: 5-15 CO2 25.0 [...] A.D.A. criteria. :05 BNP,B-Type NATRIURETIC PEPTIDE Comments: [facility] X[address] [place], [place], [id number] B-TYPE ANDREW PEP 316.0 pg/mL (Abnormal) Range: 0-100 :05 CBC W/Diff, Automated Comments: [facility] Zt[address] [place], [place], [address] Absolute Lymph 1.26 {X10_3/ul} (Normal) Range: 0.83-4.51 [...] Serial specimen #1, #2, #3, or #4: [address] [place] [address] Uf[address]vnlgcm3719 [place], [address] TROPONIN-I 0.15 ng/mL (Abnormal) Comments: TROPONIN-I EXPECTED VALUES <0.05 NEGATIVE 0.06 - 0.59 AT RISK OF SC > OR = 0.60 SUGGEST SC 4-Sfj-089613:10 Basic Metabolic Profile (BMP) Comments: 'TROP' Serial specimen #1, #2, #3, or #4: [address] [place] [address] Uaqlmaawsg5671 [place], [address] GAP 13 (Normal) Range: 5-15 [...] 200 mg/dLsuggests DIABETES MELLITUS per A.D.A. criteria. 4-Bbn-105692:10 CBC W/Diff, Automated Comments: [facility] [address] [place], [place], [address] Absolute Lymph 2.88 {X10_3/ul} (Normal) Range: 0.83-4.51 [...] Serial specimen #1, #2, #3, or #4: [address] [place] [address] [address] [place], [address] TSH 1.29 {uIU/mL} (Normal) Range: 0.358-3.74 :10 Troponin-I Comments: 'TROP' Serial specimen #1, #2, #3, or #4: [address] [place] [address] [place], [address] TROPONIN-I < 0.02 ng/mL (Normal) Comments: TROPONIN-I EXPECTED VALUES <0.05 NEGATIVE 0.06 - 0.59 AT RISK OF SC > OR = 0.60 SUGGEST SC :58 HgA1C , Office (42281) HgA1C , Office 7.6 % (Abnormal) Range: 4.6 - 7.1 :58 Blood Glucose , Office (80899) Blood Glucose , Office 159 (Normal) :50 CBC W/Diff, Automated Comments: [facility] [address] [place], [address] Absolute Lymph 1.46 {X10_3/ul} (Normal) [...] 4.2-5.4 WBC 7.3 K/mm3 (Normal) Range: 4.4-11.0 47-Vdi-474681:50 CCP IgG Antibodies Comments: [facility] (refer to report for specific site)refer to report for address and phone number ANTI-CCP 484732 4 {units} (Normal) Range: 0-19 Comments: Negative <20 Weak positive 20 - 39 Moderate positive 40 - 59 Strong positive >59 31-Ggm-513436:50 Comprehensive Metabolic Profil Comments: [facility] [address] [place], [place], [address] GAP 9 (Normal) Range: 5-15 CO2 26.0 [...] 126 mg/dLsuggests DIABETES MELLITUS per A.D.A. criteria. 74-Vec-212016:50 CRP Comments: [facility] [address] [place], [address] C-REACTIVE PROT 8.89 mg/L (Abnormal) Range: 0.0-3.0 Comments: C-Reactive Protein (CRP) provides useful information for thediagnosis, therapy and monitoring of inflammatory processesand associated diseases. For the evaluation of Relative Riskfor Cardiovascular Dise ase, a High Sensitivity CRP (HSCRP)should be ordered. 09-Akk-087891:50 Erythrocyte Sed Rate Comments: [facility] [address] [facility] [address] [facility] [address] [place], [place], [id number] SED RATE 27 mm/h (Normal) Range: 0-30 79-Xcj-203182:50 Hep B Surface Antibodies Comments: [facility] (refer to report for specific site)refer to report for address and phone number Hep B Booker AB Non Reactive (Normal) Comments: Non Reactive: Inconsistent with immunity, less than 10 mIU/mL Reactive: Consistent with immunity, greater than 9.9 mIU/ mL 75-Zep-804764:50 Hepatitis B Surface Ag Comments: [facility] (refer to report for specific site)refer to report for address and phone number HB SURF AG Negative (Normal) Comments: Performed at: [address] [id number] Director: Christopher Sullivan PhD, Phone: [phone] at: [address] [id number] Director: Loco Ivey MD, Phone: [phone] Hepatitis C Antibodies Comments: [facility] (refer to report for specific site)refer to report for address and phone number HEP C AB <0.1 {s/co_ratio} (Normal) Range: 0.0-0.9 Comments: Negative: < 0.8 Indeterminate: 0.8 - 0.9 Positive: > 0.9 The CDC recommends that a positive HCV antibody result be followed up with a HCV Nucleic Acid Amplification test (478891). :50 Rheumatoid Factor Comments: [facility] [address] [place], [place], [address] RHEUMATOID FAC < 10.0 {IU/mL} (Normal) :50 Uric Acid Comments: [address] [place], [place], [address] URIC 7.1 mg/dL (Abnormal) Range: 2.6-6.0 Comments: The drugs N-Acetylcysteine and Metamizole may falselydepress this assay. :03 Unable to Void SPRCS (Normal) Comments: PATIENT WAS FASTINGPERFORMED BY: [address] [id number] Comments: The patient was not able to render a urine sample and has beeninstructed to return for a urine collection at their earliestconvenience. The urine testing that you have requested hasbeen deleted from th is report. When the patient returns andprovides a urine specimen, the urine testing will be performedand separately reported. :03 VITAMIN B-12 (CYANOCOBALAMIN) Comments: PATIENT WAS FASTINGPERFORMED BY: [address] [id number] (57753) Vitamin B12 264 pg/mL (Normal) Range: 211-946 :03 METABOLIC PANEL, COMPREHENSIVE Comments: PATIENT WAS FASTINGPERFORMED BY: [facility] SomersetVpmrpl8740 [facility] [id number] (74335) ALT (SGPT) 7 [iU]/L (Normal) Range: 0-32 [...] mg/dL (Abnormal) Range: 65-99 :03 LIPID PANEL (50920) Comments: PATIENT WAS FASTINGPERFORMED BY: CaratLaneSocorro General HospitalMiwxrm6207 [facility] [id number] VLDL Cholesterol Jyoti VLDLCH mg/dL (Normal) Range: 5-40 Comments: The calculation for the VLDL cholesterol is not valid whentriglyceride level is >400 mg/dL.Triglyceride result indicated is too high for an accurate LDLcholesterol estimation. HDL Cholesterol 26 mg/dL (Abnormal) Triglycerides 542 mg/dL (Abnormal) Range: 0-149 Cholesterol, Total 183 mg/dL (Normal) Range: 100-199 :03 CBC W/AUTO DIFF WBC (05006) Comments: PATIENT WAS FASTINGPERFORMED BY: [facility]CoRobert [facility] Johnson [facility] SomersetDzxqxs1597 [facility] [id number] Immature Grans (Abs) 0.0 {x10E3/uL} (Normal) Range: [...] (Normal) Range: 3.4-10.8 :48 HgA1C , Office (94111) HgA1C , Office 8.0 % (Abnormal) Range: 4.6 - 7.1 :48 Blood Glucose , Office (71659) Blood Glucose , Office 166 (Normal) :06 CALCIFEDIOL (32536) Comments: PATIENT NOT FASTINGPERFORMED BY: LabCoRobert Wood Johnson [facility] Hospital SomersetRmcirf8084 [facility] [id number] Vitamin D, 25-Hydroxy 51.1 ng/mL (Normal) Range: 30.0-100.0 Comments: Vitamin D deficiency has been defined by the Badger ofMedicine and an Endocrine Society practice guideline as alevel of serum 25-OH vitamin D less than 20 ng/mL (1,2).The Endocrine Society went on to further define vitamin Dinsufficiency as a level between 21 and 29 ng/mL (2).1. IOM (Badger of Medicine). 2010. Dietary reference intakes for calcium and D. [place]: The National Academies Press.2. Bobo MF, Estrellita NC, Maddi CALIX, et al. Evaluation, treatment, and prevention of vitamin D deficiency: an Endocrine Society clinical practice guideline. JCEM. 2010; 96(7):1911-30. :06 CBC, PLATELETS & AUT DIFF Comments: PATIENT NOT FASTINGPERFORMED BY: LabCoRobert [facility] Johnson [facility] Hospital SomersetFtjdsq8181 [facility] [id number] (79456) Immature Grans (Abs) 0.0 {x10E3/uL} (Normal) Range: [...] (Normal) Range: 3.4-10.8 :36 HgA1C , Office (11602) HgA1C , Office 8.0 % (Abnormal) Range: 4.6 - 7.1 :36 Blood Glucose , Office (69822) Blood Glucose , Office 155 (Normal) :39 METABOLIC PANEL, COMPREHENSIVE Comments: PATIENT WAS FASTINGPERFORMED BY: LabCoRobert [facility] Johnson [facility] SomersetEmldlu3298 [facility] [id number] (18332) ALT (SGPT) 6 [iU]/L (Normal) Range: 0-32 [...] Glucose, Serum 200 mg/dL (Abnormal) Range: 65-99 :39 LIPID PANEL (48430) Comments: PATIENT WAS FASTINGPERFORMED BY: [employer] [place] [id number] LDL/HDL Ratio 3.6 {ratio_units} (Abnormal) Range: 0.0-3.2 Comments: LDL/HDL Ratio Men Women 1/2 Avg.Risk 1.0 1.5 Av g.Risk 3.6 3.2 2X Avg.Risk 6.2 5.0 3X Avg.Risk 8.0 6.1 LDL Cholesterol Calc 104 mg/dL (Abnormal) Range: 0-99 VLDL Cholesterol Jyoti 72 mg/dL (Abnormal) Range: 5-40 HDL Cholesterol 29 mg/dL (Abnormal) Triglycerides 359 mg/dL (Abnormal) Range: 0-149 Cholesterol, Total 205 mg/dL (Abnormal) Range: 100-199 84-Aba-521277:49 Blood Glucose , Office (23714) Blood Glucose , Office 159 (Normal) 04-Arj-326761:49 HgA1C , Office (31136) HgA1C , Office 8.1 % (Abnormal) Range: 4.6 - 7.1 38-Vcq-203265:03 VITAMIN B-12 (CYANOCOBALAMIN) Comments: PATIENT WAS FASTINGPERFORMED BY: Hydrobolt70 [employer] [place] [id number] (08402) Vitamin B12 319 pg/mL (Normal) Range: 211-946 01-Rih-770339:03 LIPID PANEL (38290) Comments: PATIENT WAS FASTINGPERFORMED BY: Hydrobolt70 [facility] [id number] VLDL Cholesterol Jyoti VLDLCH mg/dL (Normal) Range: [...] Cholesterol, Total 192 mg/dL (Normal) Range: 100-199 53-Vyn-321433:03 Vitamin D Hydroxy (45498) Comments: PATIENT WAS FASTINGPERFORMED BY: Yi De6370 [address] [facility] Children'S HospitalInteractive NetworksAtrium Health [id number] Vitamin D, 25-Hydroxy 21.1 ng/mL (Abnormal) Range: 30.0-100.0 Comments: Vitamin D deficiency has been defined by the Badger ofMedicine and an Endocrine Society practice guideline as alevel of serum 25-OH vitamin D less than 20 ng/mL (1,2).The Endocrine Society went on to further define vitamin Dinsufficiency as a level between 21 and 29 ng/mL (2).1. IOM (Badger of Medicine). 2010. Dietary reference intakes for calcium and D. [place]: The National Academies Press.2. Bobo MF, Estrellita STOCKTON, Maddi CALIX, et al. Evaluation, treatment, and prevention of vitamin D deficiency: an Endocrine Society clinical practice guideline. JCEM. 2010; 96(7): 1911-30.; ADDENDA: non-emergent till apt next week 03-Quw-631905:03 MICROALBUMIN: CREATININE RATIO Comments: PATIENT WAS FASTINGPERFORMED BY: [facility] Trlztn4275 [facility] [id number] (66293) AND (77251) Microalb/Creat Ratio 26.1 {mg/g_creat} (Normal) Range: 0.0-30.0 Microalbumin, Urine 20.0 ug/mL (Normal) Creatinine, Urine 76.5 mg/dL (Normal) :03 CBC W/AUTO DIFF WBC Comments: PATIENT WAS FASTINGPERFORMED BY: [facility]LaneRobert [facility] Hospital SomersetCfjybj8433 [facility] [id number] Information: [id number] (06046) Immature Grans (Abs) 0.0 {x10E3/uL} (Normal) Range: [...] PANEL, COMPREHENSIVE Comments: PATIENT WAS FASTINGPERFORMED BY: [facility]6370 [facility] [id number] (93583) ALT (SGPT) 7 [iU]/L (Normal) Range: 0-32 [...] Glucose, Serum 166 mg/dL (Abnormal) Range: 65-99 17-Apr-20169:53 Vitamin D Hydroxy (81540) Comments: PATIENT WAS FASTINGPERFORMED BY: LabCoRobert Wood Johnson [facility] Hospital SomersetLiiiqn1073 [facility] [id number] Vitamin D, 25-Hydroxy 25.5 ng/mL (Abnormal) Range: 30.0-100.0 Comments: Vitamin D deficiency has been defined by the Badger ofMedicine and an Endocrine Society practice guideline as alevel of serum 25-OH vitamin D less than 20 ng/mL (1,2).The Endocrine Society went on to further define vitamin Dinsufficiency as a level between 21 and 29 ng/mL (2).1. IOM (Badger of Medicine). 2010. Dietary reference intakes for calcium and D. [place]: The National Academies Press.2. Bobo MF, Estrellita NC, Maddi CALIX, et al. Evaluation, treatment, and prevention of vitamin D deficiency: an Endocrine Society clinical practice guideline. JCEM. 2010; 96(7):1911-30. :53 LIPID PANEL (26524) Comments: PATIENT WAS FASTINGPERFORMED BY: [employer] Neqlke4246 [facility] [id number] LDL/HDL Ratio 3.7 {ratio_units} (Abnormal) Range: 0.0-3.2 [...] PANEL, COMPREHENSIVE Comments: PATIENT WAS FASTINGPERFORMED BY: [employer] Bikqui5099 [facility] [id number] (19571) ALT (SGPT) 5 [iU]/L (Normal) Range: 0-32 [...] Glucose, Serum 214 mg/dL (Abnormal) Range: 65-99 :34 HGB A1C (15735) Comments: PATIENT WAS FASTINGPERFORMED BY: BELKYS Wilson TherapeuticsAtrium Health [id number] Hemoglobin A1c 8.9 % (Abnormal) Range: 4.8-5.6 Comments: . Pre-diabetes: 5.7 - 6.4 Diabetes: >6.4 Glycemic control for adults with diabetes: <7.0 :11 VITAMIN B-12 (CYANOCOBALAMIN) Comments: B12lot:5200exp:06/26site:lt deltroute:Romeose:chilo Camargo; PATIENT WAS FASTINGPERFORMED BY: [facility]naryFlag[facility] [id number] (06221) Vitamin B12 301 pg/mL (Normal) Range: 211-946 :11 Vitamin D Hydroxy (35146) Comments: PATIENT WAS FASTINGPERFORMED BY: AlertsAtrium Health [id number] Vitamin D, 25-Hydroxy 20.3 ng/mL (Abnormal) Range: 30.0-100.0 Comments: Vitamin D deficiency has been defined by the Badger ofMedicine and an Endocrine Society practice guideline as alevel of serum 25-OH vitamin D less than 20 ng/mL (1,2).The Endocrine Society went on to further define vitamin Dinsufficiency as a level between 21 and 29 ng/mL (2).1. IOM (Badger of Medicine). 2010. Dietary reference intakes for calcium and D. [place]: The National AcademXGraph Press.2. Bobo MF, Estrellita NC, Maddi CALIX, et al. Evaluation, treatment, and prevention of vitamin D deficiency: an Endocrine Society clinical practice guideline. JCEM. 2010; 96(7):1911-30. :11 METABOLIC PANEL, Comments: PATIENT WAS FASTINGPERFORMED BY: [facility] Ynxgxi9788 [facility] [id number] Information: [id number] COMPREHENSIVE (97511) ALT (SGPT) 6 [iU]/L (Normal) Range: 0-32 [...] mg/dL (Abnormal) Range: 65-99 :11 LIPID PANEL (23398) Comments: PATIENT WAS FASTINGPERFORMED BY: CaratLaneSocorro General HospitalRrsgdt3924 [facility] [id number]; will review on 07/04 LDL/HDL Ratio 4.0 [...] mg/dL (Abnormal) Range: 100-199 :11 HGB A1C (44130) Comments: PATIENT WAS FASTINGPERFORMED BY: CaratLaneSocorro General HospitalEysyha9864 [facility] [id number] Hemoglobin A1c 8.5 % (Abnormal) Range: 4.8-5.6 Comments: . Pre-diabetes: 5.7 - 6.4 Diabetes: >6.4 Glycemic control for adults with diabetes: <7.0 :16 Vitamin D Hydroxy (23943) Comments: PATIENT WAS FASTINGPERFORMED BY: [facility]LaneRobert Wood Johnson [facility] Hospital SomersetUobxya1852 [facility] [id number] Vitamin D, 25-Hydroxy 21.3 ng/mL (Abnormal) Range: 30.0-100.0 Comments: Vitamin D deficiency has been defined by the Badger ofMedicine and an Endocrine Society practice guideline as alevel of serum 25-OH vitamin D less than 20 ng/mL (1,2).The Endocrine Society went on to further define vitamin Dinsufficiency as a level between 21 and 29 ng/mL (2).1. IOM (Badger of Medicine). 2010. Dietary reference intakes for calcium and D. [place]: The National Academies Press.2. Bobo MF, Estrellita NC, Maddi CALIX, et al. Evaluation, treatment, and prevention of vitamin D deficiency: an Endocrine Society clinical practice guideline. JCEM. 2010; 96(7):1911-30. :16 VITAMIN B-12 (CYANOCOBALAMIN) Comments: PATIENT WAS FASTINGPERFORMED BY: LetMeHearYaAtrium Health Anson [id number] (97380) Vitamin B12 283 pg/mL (Normal) Range: 211-946 :16 CBC W/AUTO DIFF WBC Comments: PATIENT WAS FASTINGPERFORMED BY: [employer]6370 [facility] [id number] Information: [id number] (25982) Immature Grans (Abs) 0.0 {x10E3/uL} (Normal) Range: [...] {x10E3/uL} (Normal) Range: 3.4-10.8 :16 LIPID PANEL (79790) Comments: PATIENT WAS FASTINGPERFORMED BY: XYDO RyanQuirkyAtrium Health Anson [id number] VLDL Cholesterol Jyoti VLDLCH mg/dL (Normal) Range: [...] Cholesterol, Total 168 mg/dL (Normal) Range: 100-199 87-Snr-920203:49 HGB A1C (35664) Comments: PATIENT NOT FASTINGPERFORMED BY: Hydrobolt70 [facility] [id number] Information: [id number] Hemoglobin A1c 8.1 % (Abnormal) Range: 4.8-5.6 Comments: . Pre-diabetes: 5.7 - 6.4 Diabetes: >6.4 Glycemic control for adults with diabetes: <7.0 :30 VITAMIN B-12 (CYANOCOBALAMIN) Comments: PATIENT WAS FASTINGPERFORMED BY: Frugotonlin6370 [facility] [id number] (38099) Vitamin B12 325 pg/mL (Normal) Range: 211-946 90-Jza-83404:30 CBC (AUTO) (54612) Comments: PATIENT WAS FASTINGPERFORMED BY: [employer] TechnologiesCo Loiytj9868 [facility] [id number] Platelets 309 {x10E3/uL} (Normal) Range: 150-379 RDW 14.8 % (Normal) Range: 12.3-15.4 MCHC 31.1 g/dL (Abnormal) Range: 31.5-35.7 MCH 25.6 pg (Abnormal) Range: 26.6-33.0 MCV 82 fL (Normal) Range: 79-97 Hematocrit 39.2 % (Normal) Range: 34.0-46.6 Hemoglobin 12.2 g/dL (Normal) Range: 11.1-15.9 RBC 4.77 {x10E6/uL} (Normal) Range: 3.77-5.28 WBC 10.9 {x10E3/uL} (Abnormal) Range: 3.4-10.8 :30 Vitamin D Hydroxy (13231) Comments: PATIENT WAS FASTINGPERFORMED BY: [employer] Txglnj1683 [facility] [id number] Vitamin D, 25-Hydroxy 19.9 ng/mL (Abnormal) Range: 30.0-100.0 Comments: Vitamin D deficiency has been defined by the Badger ofMedicine and an Endocrine Society practice guideline as alevel of serum 25-OH vitamin D less than 20 ng/mL (1,2).The Endocrine Society went on to further define vitamin Dinsufficiency as a level between 21 and 29 ng/mL (2).1. IOM (Badger of Medicine). 2010. Dietary reference intakes for calcium and D. [place]: The National Academies Press.2. Bobo MF, Estrellita NC, Maddi CALIX, et al. Evaluation, treatment, and prevention of vitamin D deficiency: an Endocrine Society clinical practice guideline. JCEM. 2010; 96(7): 1911-30.; ADDENDA: non-emergent till tomorrows apt :30 LIPID PANEL (23678) Comments: PATIENT WAS FASTINGPERFORMED BY: [employer] Lwhibs8343 [facility] [id number] VLDL Cholesterol Jyoti VLDLCH mg/dL (Normal) Range: [...] CREATININE RATIO Comments: PATIENT WAS FASTINGPERFORMED BY: Apcera Lgyrsh1981 [facility] [id number] (85921) AND (21339) Microalb/Creat Ratio 190.8 {mg/g_creat} (Abnormal) Range: 0.0-30.0 Microalbumin, Urine 66.6 ug/mL (Abnormal) Range: 0.0-17.0 Creatinine, Urine 34.9 mg/dL (Normal) Range: 15.0-278.0 :30 METABOLIC PANEL, Comments: PATIENT WAS FASTINGPERFORMED BY: BrightkiteSocorro General HospitalAmsxhu1411 [facility] [id number] Information: [id number] COMPREHENSIVE (64680) ALT (SGPT) 6 [iU]/L (Normal) Range: 0-32 [...] (Abnormal) Range: 65-99 :59 Vitamin D Hydroxy (99691) Comments: PATIENT NOT FASTINGPERFORMED BY: Hydrobolt70 Attune RTDAtrium Health [id number]; apt. 10-21-14 Vitamin D, 25-Hydroxy 21.4 ng/mL (Abnormal) Range: 30.0-100.0 Comments: Vitamin D deficiency has been defined by the Badger ofUniversity Hospitals Geauga Medical Centercine and an Endocrine Society practice guideline as alevel of serum 25-OH vitamin D less than 20 ng/mL (1,2).The Endocrine Society went on to further define vitamin Dinsufficiency as a level between 21 and 29 ng/mL (2).1. IOM (Badger of Medicine). 2010. Dietary reference intakes for calcium and D. [place]: The National Academies Press.2. Bobo MF, Estrellita STOCKTON, Maddi CALIX, et al. Evaluation, treatment, and prevention of vitamin D deficiency: an Endocrine Society clinical practice guideline. JCEM. 2010; 96(7):1911-30. :59 LIPID PANEL (73903) Comments: PATIENT NOT FASTINGPERFORMED BY: [facility] Ypysbj9101 [facility] [id number] VLDL Cholesterol Jyoti VLDLCH mg/dL (Normal) Range: [...] B-12 (CYANOCOBALAMIN) Comments: PATIENT NOT FASTINGPERFORMED BY: [facility]6370 [facility] [id number] (79108) Vitamin B12 500 pg/mL (Normal) Range: 211-946 :59 CBC W/AUTO DIFF WBC Comments: PATIENT NOT FASTINGPERFORMED BY: [facility]6370 [facility] [id number] Information: [id number] (73832) Immature Grans (Abs) 0.0 {x10E3/uL} (Normal) Range: [...] PANEL, COMPREHENSIVE Comments: PATIENT NOT FASTINGPERFORMED BY: [facility] Tvcfec8469 [facility] [id number] (79071) ALT (SGPT) 6 [iU]/L (Normal) Range: 0-32 [...] Range: 65-99 :38 Blood Glucose , Office (78373) Blood Glucose , Office 198 (Normal) :38 HgA1C , Office (96361) HgA1C , Office 9.1 % (Abnormal) Range: 4.6 - 7.1 :40 Allergens, Zone 8 Comments: Test(s) 018810-K746-UnO Cockroach, Nigerian; 585373-A914-CyG [place], White; 014743-Z932-JdH Sweet Gumwere developed and had performance characteristicsdetermined by [employer]. These tests have not been c leared orapproved by the U.S. Food and Drug Administration. The FDAhas determined that such clearance or approval is notnecessary. These tests are used for clinical purposes.These should not be regarded as investigational or forresearch.Test performed at:[facility] [address]hc[address] [place] [address] ; handled by jennifer VANG COMMENT Comment [...] NETTLE <0.10 kU/L (Normal) Comments: Performed at: [address] [id number] Director: Loco Ivey MD, Phone: [phone] SHEEP SORREL <0.10 kU/L (Normal) PIGWEED, ROUGH [...] kU/L (Normal) D PTERONYSSINUS <0.10 kU/L (Normal) 01-Jnh-79766:40 Immunoglobulin E Comments: Test performed at:[facility] Uxbkggfqhj4902 [place] [address] IMMUNO E 53 {IU/mL} (Normal) Range: 0-100 Comments: Performed at: [facility] [address]works[address] [id number] Director: Christopher Sullivan PhD, Phone: [phone]; ADDENDA: handled by jennifer 03-Gwr-790789:26 HgA1C , Office (99414) HgA1C , Office 9.6 % (Abnormal) Range: 4.6 - 7.1 1-Ckr-887719:31 BNP,B-Type NATRIURETIC PEPTIDE Comments: Test performed at:[facility] Tqnytnpahc8600 [place] [address] B-TYPE ANDREW PEP 58.8 pg/mL (Normal) Range: 0-100 12-Kgc-088782:04 IRON BINDING CAPACITY (TIBC) Comments: PERFORMED BY: [facility] [id number] (21714) Iron Saturation 11 % (Abnormal) Range: 15-55 Iron, Serum 47 ug/dL (Normal) Range: 35-155 UIBC 362 ug/dL (Normal) Range: 150-375 Iron Bind.Cap.(TIBC) 409 ug/dL (Normal) Range: 250-450 :04 FERRITIN (97582) Comments: PERFORMED BY: Bee There Mmhwut0910 Ryan RoadDublin [place] [id number] Ferritin, Serum 32 ng/mL (Normal) Range: 15-150 58-Tgn-959450:04 VITAMIN B-12 (CYANOCOBALAMIN) Comments: PERFORMED BY: Bee There Rkzmza5923 Ryan RoadDublin [place] [id number] (04362) Vitamin B12 304 pg/mL (Normal) Range: 211-946 :04 Vitamin D Hydroxy (59218) Comments: PERFORMED BY: [employer] Online6370 Ryan RoadDublin [place] [id number] Vitamin D, 25-Hydroxy 17.5 ng/mL (Abnormal) Range: 30.0-100.0 Comments: Vitamin D deficiency has been defined by the Badger ofMedicine and an Endocrine Society practice guideline as alevel of serum 25-OH vitamin D less than 20 ng/mL (1,2).The Endocrine Society went on to further define vitamin Dinsufficiency as a level between 21 and 29 ng/mL (2).1. IOM (Badger of Medicine). 2010. Dietary reference intakes for calcium and D. [place]: The National Academies Press.2. Bobo MF, Estrellita NC, Maddi CALIX, et al. Evaluation, treatment, and prevention of vitamin D deficiency: an Endocrine Society clinical practice guideline. JCEM. 2010; 96(7):1911-30. 17-Sei-338515:04 LIPID PANEL (46886) Comments: PERFORMED BY: LabCoPenteoSurround Kytdcs5991 Ryan RoadDublin [place] [id number] VLDL Cholesterol Jyoti VLDLCH mg/dL (Normal) Range: [...] Cholesterol, Total 166 mg/dL (Normal) Range: 100-199 :04 CBC W/AUTO DIFF WBC (81527) Comments: PERFORMED BY: BELKYS Wilson TherapeuticsAtrium Health [id number] Immature Grans (Abs) 0.0 {x10E3/uL} (Normal) Range: [...] 3.77-5.28 WBC 7.3 {x10E3/uL} (Normal) Range: 3.4-10.8 23-Anv-031225:04 METABOLIC PANEL, COMPREHENSIVE Comments: PERFORMED BY: [facility] [place] [id number] (16064) ALT (SGPT) 5 [iU]/L (Normal) Range: 0-32 [...] Glucose, Serum 279 mg/dL (Abnormal) Range: 65-99 59-Tmk-271671:18 HgA1C , Office (02570) HgA1C , Office 8.3 % (Abnormal) Range: 4.6 - 7.1 16-Pkh-466675:12 Rapid Flu (40523 x 2) Influenza A Ag negative (Normal) 22-Stm-003386:43 BNTP (23500) Comments: PATIENT NOT FASTINGPERFORMED BY: [facility] Cpevvu5835 [facility] [id number] Information: [id number] B-Type Natriuretic Peptide 67.8 pg/mL (Normal) Range: [...] 126 mg/dLsuggests DIABETES MELLITUS per A.D.A. criteria. :14 Blood Glucose , Office (66102) Blood Glucose , Office 112 (Normal) :14 HgA1C , Office (75483) HgA1C , Office 7.3 % (Abnormal) Range: 4.6 - 7.1 20-Jbw-704046:45 [place]ST[place] Negative (Normal) Comments: Performed at: [address] [id number] Director: Nick Cali PhD, Phone: [phone] 09-Orb-279443:45 CBCD ALC 1.65 {X10_3/ul} (Normal) Range: 0.83-4.51 [...] - 59Strong positive >59Performed at: - [facility] [address] [id number] Director: Loco Ivey MD, Phone: [phone] CMP GAP 4 (Abnormal) Range: 5-15 CO2 [...] ng/mL (>250 nmol/L) :46 Vitamin D Hydroxy (11142) Comments: PATIENT WAS FASTINGPERFORMED BY: [employer] [place] [id number] Vitamin D, 25-Hydroxy 22.7 ng/mL (Abnormal) Range: 30.0-100.0 Comments: Vitamin D deficiency has been defined by the Badger ofMedicine and an Endocrine Society practice guideline as alevel of serum 25-OH vitamin D less than 20 ng/mL (1,2).The Endocrine Society went on to further define vitamin Dinsufficiency as a level between 21 and 29 ng/mL (2).1. IOM (Badger of Medicine). 2010. Dietary reference intakes for calcium and D. [place]: The National Academies Press.2. Bobo MF, Estrellita NC, Maddi CALIX, et al. Evaluation, treatment, and prevention of vitamin D deficiency: an Endocrine Society clinical practice guideline. JCEM. 2010; 96(7):1911-30. :46 MICROALBUMIN: CREATININE RATIO Comments: PATIENT WAS FASTINGPERFORMED BY: [facility] [id number] (15947) AND (90509) Microalb/Creat Ratio 37.1 {mg/g_creat} (Abnormal) Range: 0.0-30.0 Microalbumin, Urine 29.9 ug/mL (Abnormal) Range: 0.0-17.0 Creatinine, Urine 80.5 mg/dL (Normal) Range: 15.0-278.0 :46 METABOLIC PANEL, COMPREHENSIVE Comments: PATIENT WAS FASTINGPERFORMED BY: [employer] Phwshg7780 [facility] [id number] (57748) ALT (SGPT) 7 [iU]/L (Normal) Range: 0-32 [...] mg/dL (Abnormal) Range: 65-99 :46 LIPID PANEL (45560) Comments: PATIENT WAS FASTINGPERFORMED BY: [employer] Tqxxnr2803 [facility] [id number] LDL/HDL Ratio 2.1 {ratio_units} (Normal) Range: 0.0-3.2 [...] Cholesterol, Total 177 mg/dL (Normal) Range: 100-199 96-Hfb-57204:46 CBC, PLATELETS & AUT DIFF Comments: PATIENT WAS FASTINGPERFORMED BY: [facility] SomersetXfubhi8146 [facility] [id number] Information: [id number] (51284) Hematology Comments: Note: (Normal) Comments: Verified by [...] B-12 (CYANOCOBALAMIN) Comments: PATIENT WAS FASTINGPERFORMED BY: XYDO [facility] [id number] (08258) Vitamin B12 254 pg/mL (Normal) Range: 211-946 4-Fbh-687613:10 HgA1C , Office (07567) HgA1C , Office 6.8 % (Normal) Range: 4.6 - 7.1 4-Ymq-986519:10 Blood Glucose , Office (12455) Blood Glucose , Office 146 (Normal) Comments: non-fasting :36 LIPID PANEL (86763) Comments: PATIENT WAS FASTINGPERFORMED BY: Yi De6370 [facility] [id number] VLDL Cholesterol Jyoti VLDLCH mg/dL (Normal) Range: [...] MANUAL DIFF Comments: PATIENT WAS FASTINGPERFORMED BY: [facility] SomersetCmpixz5566 [facility] [id number] Information: [id number] (19662) Immature Grans (Abs) 0.0 {x10E3/uL} (Normal) Range: [...] WAS FASTINGPERFORMED BY: [facility]CoRobert [facility] SomersetEubfpt1105 [facility] [id number] (13671) ALT (SGPT) 6 [iU]/L (Normal) Range: 0-32 [...] (Abnormal) Range: 65-99 :36 Vitamin D Hydroxy (09151) Comments: PATIENT WAS FASTINGPERFORMED BY: Yi De6370 [facility] [id number] Vitamin D, 25-Hydroxy 17.5 ng/mL (Abnormal) Range: 30.0-100.0 Comments: Vitamin D deficiency has been defined by the Badger ofUniversity Hospitals Geauga Medical Centercine and an Endocrine Society practice guideline as alevel of serum 25-OH vitamin D less than 20 ng/mL (1,2).The Endocrine Society went on to further define vitamin Dinsufficiency as a level between 21 and 29 ng/mL (2).1. IOM (Badger of Medicine). 2010. Dietary reference intakes for calcium and D. [place]: The National Academies Press.2. Bobo MF, Estrellita NC, Daphnie-Aneesh CALIX, et al. Evaluation, treatment, and prevention of vitamin D deficiency: an Endocrine Society clinical practice guideline. JCEM. 2010; 96(7):1911-30. :36 VITAMIN B-12 (CYANOCOBALAMIN) Comments: PATIENT WAS FASTINGPERFORMED BY: Hydrobolt70 [facility] [id number] (18625) Vitamin B12 264 pg/mL (Normal) Range: 211-946 :36 IRON (91395) Comments: PATIENT WAS FASTINGPERFORMED BY: [facility] Acbnzh6546 Ryan RoadDublin [place] [id number] Iron, Serum 52 ug/dL (Normal) Range: 35-155 29-Cwj-934943:54 HgA1C , Office (24903) HgA1C , Office 7.1 % (Normal) Range: 4.6 - 7.1 :09 VITAMIN B-12 (CYANOCOBALAMIN) Comments: PATIENT WAS FASTINGPERFORMED BY: [facility] Yppwov7571 Ryan RoadDublin [place] [id number] (45891) Vitamin B12 704 pg/mL (Normal) Range: 211-946 :09 Vitamin D Hydroxy (24254) Comments: PATIENT WAS FASTINGPERFORMED BY: [facility] Otgttn5435 Ryan RoadDublin [place] [id number] Vitamin D, 25-Hydroxy 21.8 ng/mL (Abnormal) Range: 30.0-100.0 Comments: Vitamin D deficiency has been defined by the Badger ofUniversity Hospitals Geauga Medical Centercine and an Endocrine Society practice guideline as alevel of serum 25-OH vitamin D less than 20 ng/mL (1,2).The Endocrine Society went on to further define vitamin Dinsufficiency as a level between 21 and 29 ng/mL (2).1. IOM (Badger of Medicine). 2010. Dietary reference intakes for calcium and D. [place]: The National Academies Press.2. Bobo MF, Estrellita NC, Maddi CALIX, et al. Evaluation, treatment, and prevention of vitamin D deficiency: an Endocrine Society clinical practice guideline. JCEM. 2010; 96(7):1911-30. :09 MICROALBUMIN: CREATININE RATIO Comments: PATIENT WAS FASTINGPERFORMED BY: [facility] Jdxqvx8650 Ryan RoadDublin [place] [id number] (30670) AND (20371) Microalb/Creat Ratio 24.2 {mg/g_creat} (Normal) Range: 0.0-30.0 Microalbumin, Urine 37.1 ug/mL (Abnormal) Range: 0.0-17.0 Creatinine, Urine 153.6 mg/dL (Normal) Range: 15.0-278.0 :09 METABOLIC PANEL, COMPREHENSIVE Comments: PATIENT WAS FASTINGPERFORMED BY: [facility]LaneRobert [facility] SomersetGnpaze2066 [facility] [id number] (36817) ALT (SGPT) 9 [iU]/L (Normal) Range: 0-32 [...] MANUAL DIFF Comments: PATIENT WAS FASTINGPERFORMED BY: [facility]6370 [facility] [id number] Information: [id number] (73231) Immature Grans (Abs) 0.0 {x10E3/uL} (Normal) Range: [...] 3.77-5.28 WBC 8.1 {x10E3/uL} (Normal) Range: 3.4-10.8 72-Cya-47747:09 LIPID PANEL (99655) Comments: PATIENT WAS FASTINGPERFORMED BY: [facility]6370 [facility] [id number] VLDL Cholesterol Jyoti VLDLCH mg/dL (Normal) Range: [...] Cholesterol, Total 173 mg/dL (Normal) Range: 100-199 9-Swa-457715:23 HgA1C , Office (06663) HgA1C , Office 7.2 % (Abnormal) Range: 4.6 - 7.1 72-Bsh-870365:08 FOOT MIN 3 VIEWS Radiology Report See [...] Babcock M.D.November 02, 2012 at 3:41:31 PM [id number] Signed GP/GP If you are the referring physician and would like to consult with theradiologist who provided this interpretation, please contact Imani Hayes at [phone]. If this radiologist is unavailable, youwill be directed to another radiologist to assist. If you are a patient with a question regarding this report, pleasecontactyour referring lisa gonzalez directly. Professional Interpretation Provided By: [employer], Phone , These documents contain legally protected [...] the return or destructionofthese documents. Dictated on 11/02/121540 by Shayna ROSAS,Emma Villalobosscribed on 11/02/121542 by ITS IMPORTSign by Shayna ROSAS,John on 11/02/121543 Sign by: John Bacbock MD 66-Wdm-722321:33 MICROALBUMIN: CREATININE RATIO Comments: PATIENT WAS FASTINGPERFORMED BY: [facility]CoRobert [facility] SomersetUvbtbk8599 [facility] [id number] (49935) AND (98899) Microalb/Creat Ratio 31.2 {mg/g_creat} (Abnormal) Range: 0.0-30.0 Microalbumin, Urine 44.7 ug/mL (Abnormal) Range: 0.0-17.0 Creatinine, Urine 143.3 mg/dL (Normal) Range: 15.0-278.0 89-Zix-693720:33 CBC WITH MANUAL DIFF Comments: PATIENT WAS FASTINGPERFORMED BY: [facility]CoRobert [facility] SomersetWmszgy6280 [facility] [id number] Information: [id number] (52397) Immature Grans (Abs) 0.0 {x10E3/uL} (Normal) Range: [...] 3.77-5.28 WBC 6.9 {x10E3/uL} (Normal) Range: 3.4-10.8 27-Bec-251243:33 METABOLIC PANEL, COMPREHENSIVE Comments: PATIENT WAS FASTINGPERFORMED BY: [facility]6370 [facility] [id number] (86360) ALT (SGPT) 10 [iU]/L (Normal) Range: 0-32 [...] Glucose, Serum 158 mg/dL (Abnormal) Range: 65-99 61-Wkh-701232:33 VITAMIN B-12 (CYANOCOBALAMIN) Comments: PATIENT WAS FASTINGPERFORMED BY: [facility]YaAt[facility] [id number] (43798) Vitamin B12 >1999 pg/mL (Abnormal) Range: 211-946 82-Qpl-689220:33 IRON BINDING CAPACITY (TIBC) Comments: PATIENT WAS FASTINGPERFORMED BY: XYDO [facility] [id number] (35333) Iron Saturation 16 % (Normal) Range: 15-55 Iron, Serum 59 ug/dL (Normal) Range: 35-155 UIBC 315 ug/dL (Normal) Range: 150-375 Iron Bind.Cap.(TIBC) 374 ug/dL (Normal) Range: 250-450 53-Yvb-764705:33 FERRITIN (73002) Comments: PATIENT WAS FASTINGPERFORMED BY: [facility] [id number] Ferritin, Serum 29 ng/mL (Normal) Range: 15-150 57-Yxg-054898:33 HEPATIC FUNCTION PANEL Comments: PATIENT WAS FASTINGPERFORMED BY: XYDO [facility] [id number] (25622) Bilirubin, Direct 0.12 mg/dL (Normal) Range: 0.00-0.40 :33 LIPID PANEL (67137) Comments: PATIENT WAS FASTINGPERFORMED BY: [employer] TechnologiesCoPenteoSurround Aghjer0106 [facility] [id number] VLDL Cholesterol Jyoti VLDLCH mg/dL (Normal) Range: [...] (Normal) Range: 100-199 :33 Vitamin D Hydroxy (63477) Comments: PATIENT WAS FASTINGPERFORMED BY: Ops[employer] LabKiddie Kist6370 [facility] [id number] Vitamin D, 25-Hydroxy 21.3 ng/mL (Abnormal) Range: 30.0-100.0 Comments: Vitamin D deficiency has been defined by the Badger ofMedicine and an Endocrine Society practice guideline as alevel of serum 25-OH vitamin D less than 20 ng/mL (1,2).The Endocrine Society went on to further define vitamin Dinsufficiency as a level between 21 and 29 ng/mL (2).1. IOM (Badger of Medicine). 2010. Dietary reference intakes for calcium and D. [place]: The National Academies Press.2. Bobo MF, Estrellita NC, Maddi CALIX, et al. Evaluation, treatment, and prevention of vitamin D deficiency: an Endocrine Society clinical practice guideline. JCEM. 2010; 96(7):1911-30. :22 HgA1C , Office (79292) HgA1C , Office 6.8 % (Normal) Range: 4.6 - 7.1 :41 DEXA BONE DENSITY STUDY (HP) Radiology Report See Note Comments: PROCEDURE: DUAL [...] Babcock M.D.August 18, 2012 at 3:19:26 PM [id number] Signed GP/GP If you are the referring physician and would like to consult with theradiologist who provided this interpretation, please contact Imani Hayes at [phone]. If this radiologist is unavailable, youwill be directed to another radiologist to assist. If you are a patient with a question regarding this report, pleasecontactyour referring physician directly. Professional Interpretation Provided By: [employer], Phone , These documents contain legally protected [...] IMPORTSign by John Babcock MD on 08/18/12 1522 Sign by: John Babcock MD 6-Cqc-817460:40 BILAT SCRN DIGITAL & CAD Radiology Report [...] Babcock M.D.August 18 3 at 1:37:33 PM [id number] Signed GP/GP If you are the referring physician and would like to consult with theradiologist who provided this interpretation, please contact Sunil louis M.D. at [phone]. If this radiologist is unavailable, youwill be directed to another radiologist to assist. If you are a patient with a question regarding this report, pleasecontactyour referr ing physician directly. Professional Interpretation Provided By: [employer], Phone , These documents contain legally protected [...] 08/18/12 1400 Sign by: John Babcock MD 1-Dym-629880:36 VERT FX ASSESS/LAT BONE DEN(H) Radiology Report [...] Babcock M.D.August 20, 2012 at 2:14:56 PM [id number] Signed GP/GP If you are the referring physician and would like to consult with [facility] who provided this interpretation, please contact Imani Hayes at [phone]. If this radiologist is unavailable, youwill be directed to another radiologist to assist. If you are a clarice ent with a question regarding this report, pleasecontactyour referring physician directly. Professional Interpretation Provided By: [employer], Phone , These documents con tain legally [...] tionofthese documents. Dictated on 08/20/12 1414 by Rosalia Babcock MDranscribed on 08/20/12 1416 by ITS IMPORTSign by John Babcock MD on 08/20/12 1417 Sign by: John Babcock MD 05-Mha-41415:10 LIPID PANEL (49000) Comments: PATIENT WAS FASTINGPERFORMED BY: [facility]6370 [facility] [id number] VLDL Cholesterol Jyoti VLDLCH mg/dL (Normal) Range: [...] Cholesterol, Total 183 mg/dL (Normal) Range: 100-199 24-Fcc-65491:10 METABOLIC PANEL, COMPREHENSIVE Comments: PATIENT WAS FASTINGPERFORMED BY: [facility]CoRobert [facility] SomersetPugucf8723 [facility] [id number] (51797) ALT (SGPT) 5 [iU]/L (Normal) Range: 0-32 [...] Glucose, Serum 133 mg/dL (Abnormal) Range: 65-99 31-Spu-98207:10 IRON BINDING CAPACITY (TIBC) Comments: PATIENT WAS FASTINGPERFORMED BY: Yi De6370 [facility]DAt[facility] [id number] (37879) Iron Saturation 15 % (Normal) Range: 15-55 Iron, Serum 53 ug/dL (Normal) Range: 35-155 UIBC 308 ug/dL (Normal) Range: 150-375 Iron Bind.Cap.(TIBC) 361 ug/dL (Normal) Range: 250-450 53-Udi-05487:10 FERRITIN (56740) Comments: PATIENT WAS FASTINGPERFORMED BY: Yi De6370 [facility] RTDAt[facility] [id number] Ferritin, Serum 25 ng/mL (Normal) Range: 15-150 86-Qbe-82822:10 VITAMIN B-12 (CYANOCOBALAMIN) Comments: PATIENT WAS FASTINGPERFORMED BY: Yi De6370 [facility] RTDAt[facility] [id number] (60655) Vitamin B12 258 pg/mL (Normal) Range: 211-946 11-Lva-63489:10 CBC WITH MANUAL DIFF Comments: PATIENT WAS FASTINGPERFORMED BY: Yi De6370 [facility] MedicalAt[facility] [id number] Information: ADD [id number] AND DRAW FEE 99 [id number] (85857) Immature Grans (Abs) 0.0 {x10E3/uL} (Normal) Range: [...] (Normal) Range: 4.0-10.5 :10 Vitamin D Hydroxy (68503) Comments: PATIENT WAS FASTINGPERFORMED BY: Yi De6370 [facility] [id number] Vitamin D, 25-Hydroxy 20.4 ng/mL (Abnormal) Range: 30.0-100.0 Comments: Vitamin D deficiency has been defined by the Badger ofMedicine and an Endocrine Society practice guideline as alevel of serum 25-OH vitamin D less than 20 ng/mL (1,2).The Endocrine Society went on to further define vitamin Dinsufficiency as a level between 21 and 29 ng/mL (2).1. IOM (Badger of Medicine). 2010. Dietary reference intakes for calcium and D. [place]: The National Academies Press.2. Bobo MF, Estrellita NC, Maddi CALIX, et al. Evaluation, treatment, and prevention of vitamin D deficiency: an Endocrine Society clinical practice guideline. JCEM. 2010; 96(7):1911-30. :08 IRON (44047) Comments: PATIENT WAS FASTINGPERFORMED BY: Lab[facility] Nwrjvr3722 [facility] [id number] Iron, Serum 58 ug/dL (Normal) Range: 35-155 8-Bss-046545:08 FERRITIN (47090) Comments: PATIENT WAS FASTINGPERFORMED BY: LabSaint [facility] Yelnbo6496 [address] Roadblin [place] [id number] Ferritin, Serum 25 ng/mL (Normal) Range: 13-150 :08 VITAMIN B-12 (CYANOCOBALAMIN) Comments: PATIENT WAS FASTINGPERFORMED BY: LabSaint [facility] Zvflze9967 Ryan RoadDublin [place] [id number] (88478) Vitamin B12 390 pg/mL (Normal) Range: 211-946 :08 Vitamin D Hydroxy (98518) Comments: PATIENT WAS FASTINGPERFORMED BY: LabSaint [facility] Oxsktz9053 [address] [facility] HospitalD[facility] [place] [id number] Vitamin D, 25-Hydroxy 25.3 ng/mL (Abnormal) Range: 30.0-100.0 Comments: Vitamin D deficiency has been defined by the Badger ofUniversity Hospitals Geauga Medical Centercine and an Endocrine Society practice guideline as alevel of serum 25-OH vitamin D less than 20 ng/mL (1,2).The Endocrine Society went on to further define vitamin Dinsufficiency as a level between 21 and 29 ng/mL (2).1. IOM (Badger of Medicine). 2010. Dietary reference intakes for calcium and D. [place]: The National Academies Press.2. Bobo MF, Estrellita NC, Maddi CALIX, et al. Evaluation, treatment, and prevention of vitamin D deficiency: an Endocrine Society clinical practice guideline. JCEM. 2010; 96(7):1911-30. :08 METABOLIC PANEL, COMPREHENSIVE Comments: PATIENT WAS FASTINGPERFORMED BY: [facility]Saint [facility] Mcozhk7466 [facility] [id number] (55477) ALT (SGPT) 6 [iU]/L (Normal) Range: 0-32 [...] Glucose, Serum 124 mg/dL (Abnormal) Range: 65-99 5-Aza-096027:08 CBC WITH MANUAL DIFF Comments: PATIENT WAS FASTINGPERFORMED BY: LabM[facility]6370 [facility] [id number] Information: [id number] (79115) Immature Grans (Abs) 0.0 {x10E3/uL} (Normal) Range: [...] 3.77-5.28 WBC 8.2 {x10E3/uL} (Normal) Range: 4.0-10.5 8-Gdf-968470:08 LIPID PANEL (85008) Comments: PATIENT WAS FASTINGPERFORMED BY: [facility]6370 [facility] [id number] VLDL Cholesterol Jyoti VLDLCH mg/dL (Normal) Range: [...] Cholesterol, Total 166 mg/dL (Normal) Range: 100-199 0-Pga-985810:56 HgA1C , Office (96408) HgA1C , Office 7.4 % (Abnormal) Range: 4.6 - 7.1 2-Ged-841848:56 Blood Glucose , Office (51575) Blood Glucose , Office 142 (Normal) 67-Bpx-951799:40 CBCMD RBCM NORM C+C {NORMAL} (Normal) EOS [...] 4.2-5.4 WBC 11.2 K/mm3 (Abnormal) Range: 4.4-11.0 :40 CMP GAP 7 (Normal) Range: 5-15 CL [...] mg/dL suggests DIABETES MELLITUS per A.D.A. criteria. 61-Zof-21593:04 CHEST WITH CONTRAST Radiology Report See Note [...] Babcock M.D.November 07, 2011 at 1:33:21 PM [id number] Signed GP/GP If you ar e the referring physician and would like to consult with theradiologist who provided this interpretation, please contact Imani Hayes at [phone]. If this radiologist is unavailable, youw ill [...] destructionofthese documents. Dictated on 11/07/11 0823 by Rosalia Babcock MDranscribed on 11/07/11 1339 by ITS IMPORTSign by John Babcock MD on 11/07/11 1340 Sign by: John Babcock MD 79-Vvk-129735:41 Pathology Report Comments: PERFORMED BY: KWCYT [facility] [place] Ukwt76493 [facility] [id number] BY: LX [facility] Hrqdaxn73381 [facility] [id number] Information: [id number] See MATER Comments: Material submitted: .SHAVE BIOPSY LEFT UPPER THIGH NEAR GROINClinical history: .POLYPOID LESION Note (Normal) Diagnosis:SHAVE BIOPSY LEFT UPPER THIGH NEAR GROIN:DERMATOLIPOMA OF THE SKIN..GX11/03/2011 Electronically signed: .Ubaldo Duran MD, PathologistGross description: .RECEIVED IS A CONTAINER LABELE Ignacia FRITZCOMFORT AND DESIGNATEDLEFT UPPER THIGH NEAR GROIN. IN FORMALIN IS AN OVOID, YELLOW/PAYTON TISSUEMEASURING 1.8 X 1.3 X 0.9 CM. THE 0.4 CM RESECTION MARGIN IS INKEDGREEN. THE SPECIMEN IS BISECTED AND BOTH HALVES ARE SUBMITTEDIN TWO CASSETTES, A1 AND A2.COR/TMZCPT .198564 04-Xtv-017101:06 CBC WITH MANUAL DIFF Comments: PATIENT NOT FASTINGPERFORMED BY: [facility] Xqkaxm8767 [facility] [id number] Information: [id number] (62806) Immature Grans (Abs) 0.0 {x10E3/uL} (Normal) Range: [...] 3.77-5.28 WBC 7.9 {x10E3/uL} (Normal) Range: 4.0-10.5 79-Cha-668673:06 LDH (LD) (LACTATE DEHYDROGENASE) Comments: PATIENT NOT FASTINGPERFORMED BY: [facility]6370 [facility] [id number] (46458) LDH 198 [iU]/L (Normal) Range: 0-214 48-Bcp-774379:06 IRON BINDING CAPACITY (TIBC) Comments: PATIENT NOT FASTINGPERFORMED BY: [facility]6370 [facility] [id number] (97170) Iron Saturation 11 % (Abnormal) Range: 15-55 Iron, Serum 46 ug/dL (Normal) Range: 35-155 UIBC 389 ug/dL (Abnormal) Range: 150-375 Iron Bind.Cap.(TIBC) 435 ug/dL (Normal) Range: 250-450 :06 FERRITIN (74494) Comments: PATIENT NOT FASTINGPERFORMED BY: [facility]6370 [facility] [id number] Ferritin, Serum 12 ng/mL (Abnormal) Range: 13-150 1-Ixy-108094:03 HgA1C , Office (15820) HgA1C , Office 7.1 % (Normal) Range: 4.6 - 7.1 :34 CBC WITH MANUAL DIFF (69791) Comments: PATIENT WAS FASTINGPERFORMED BY: [facility]6370 [facility] [id number] Immature Grans (Abs) 0.0 {x10E3/uL} (Normal) Range: [...] 3.77-5.28 WBC 8.3 {x10E3/uL} (Normal) Range: 3.4-10.8 9-Vnm-736398:11 FECAL OCCULT- Tubes sent home (74622) FECAL OCCULT HGB ASSAY, QUAL, 1-3 SIMULTANEOU positive (Normal) 2-Ykq-673547:30 HgA1C , Office (98889) HgA1C , Office 7.3 % (Abnormal) Range: [...] the presence of intrinsic factor blocking antibodies. 36-Bgs-176196:09 CBCMD MICRO RARE (Normal) ANISO RARE (Normal) [...] 76.8 mg/L (Normal) CREU 109.3 mg/dL (Normal) :09 VITD 23.9 ng/mL (Abnormal) Comments: appt 05-14-11 Range: 30.0-100.0 Comments: Vitamin D deficiency has been defined by the Badger ofMedicine and an Endocrine Society practice guideline as alevel of serum 25-OH vitamin D less than 20 ng/mL (1,2).The Endocrine Society went on to further define vitamin Dinsufficiency as a level between 21 and 29 ng/mL (2).1. IOM (Badger of Medicine). 2010. Dietary reference intakes for calcium and D. [place]: The National Academies Press.2. Bobo MF, Estrellita STOCKTON, Maddi CALIX, et al. Evaluation, treatment, and prevention of vitamin D deficiency: an Endocrine Society clinical practice guideline. JCEM. 2010; 96(7): 1911-30.Performed at: [address] [id number] Director: Charisma Hamilton MD, Phone: [phone] 7-Gii-291523:21 CHEST WITHOUT CONTRAST Radiology Report See Note [...] a radiologist regarding this report, please jyoti edison felipe [id number] line @ Dictated on 02/15/11 1126 by Shirin Alarcon DOranscribed on 02/15/11 1733 by ITS IMPORTSign by Emery Alarcon DO on 02/15/11 1734 Sign by: Emery Alarcon DO 5-Fsv-177976:30 HgA1C , Office (65621) HgA1C , Office 7.4 % (Abnormal) Range: 4.6 - 7.1 3-Lrr-780624:30 Blood Glucose , Office (08268) Blood Glucose , Office 153 (Normal) 7-Mpj-841564:07 CHEST, PA AND LATERAL Radiology Report See [...] median sternoto my.Osteopenia, possible osteoporosis. Dictated on 08/17/101 by ANNAMARIE WOODWARD MDTranscribed on 08/17/102122 by ITS IMPORTSign by ANNAMARIE WOODWARD MD on 08/17/102122 Sign by: ANNAMARIE WOODWARD MD :01 HgA1C , Office (31676) HgA1C , Office 7.9 % (Abnormal) Range: 4.6 - 7.1 : Blood Glucose , Office (90475) Blood Glucose , Office 133 (Normal) :52 [...] CREAT 107.1 mg/dL (Normal) :52 VIT D,25 49171 19.0 ng/mL (Abnormal) Range: 32.0-100.0 Comments: Recent studies consider the lower limit of 32.0 ng/mL to helena threshold for optimal health.Sunday BETTENCOURT. J Nutr. 2004;135(2):317-22.Performed at: [facility] LabCo[address] [id number]Lab Director: Charisma Hamilton MD, Phone: [phone] :[phone] VITAMIN B12 447 pg/mL (Normal) Range: 254-1320 Comments: There is a low frequency possibility that high titers ofintrinsic blocking antibodies may not be completely inactivated during the reaction pretreatment stepof this testing method. If test results are i n conflictwith the clinical diagnosis, patient should be testedfor the presence of intrinsic factor blocking antibodies. :02 BILAT SCRN DIGITAL & CAD Radiology Report [...] on 04/04/10 1033 by KEYA TREJOTranscribed on 04/05/104 by ITS IMPORTSign by KEYA TREJO on 04/05/10 0305 Sign by: KEYA TREJO 10-Kht-237473:02 DEXA BONE DENSITY STUDY (HP) Radiology Report See Note (Normal) Comments: CLINICAL:Female, 69 years old. The patient is postmenopausal. EXAMINATION:DUAL ENERGY X-RAY ABSORPTIOMETRY / DEXA. TECHNIQUE:Bone Mineral Density (BMD) measurements of lumbar spine and bila teralhipswer e obtained using a [employer] scanner.. COMPARISON:Comparison is made with prior examination [...] by: John Babcock :28 HgA1C , Office (90485) HgA1C , Office 8.2 % (Abnormal) Range: 4.6 - 7.1 :28 Blood Glucose , Office (73401) Blood Glucose , Office 205 (Normal) :27 [...] CHOL 169 mg/dL (Normal) Comments: <200 mg/dL Cfbiiwuvn326-258 mg/dL Borderline>240 mg/dL High Risk HDL 24 [...] the presence of intrinsic factor blocking antibodies. 1-Blh-157616:47 CHEST WITHOUT CONTRAST Radiology Report See Note (Normal) Comments: Exam Number: [id number] CT SCAN OF THE THORAX Multiple axial [...] unchanged as well. Reported By: JOHN BABCOCK 02-Fzb-646721:27 VITAMIN B-12 (CYANOCOBALAMIN) Comments: PATIENT NOT FASTINGPERFORMED BY: CB [facility] Ffehuw[address] RoadDublin [place] [id number] (66940) Vitamin B12 338 pg/mL (Normal) Range: 211-946 Comments: Please note reference interval change 34-Zwu-983519:27 Vitamin D Hydroxy (25239) Comments: PATIENT NOT FASTINGPERFORMED BY: [facility] Jdmpxp94[address] RoadDublin [place] [id number] Vitamin D, 25-Hydroxy 17.2 ng/mL (Abnormal) Range: 32.0-100.0 Comments: Recent studies consider the lower limit of 32.0 ng/mL to be athreshold for optimal health.Sunday BETTENCOURT. J Nutr. 2004;135(2):317-22. 06-Gbs-713526:27 CBC WITH MANUAL DIFF Comments: PATIENT NOT FASTINGPERFORMED BY: [facility] Ygpxap[address] [facility] [place] [id number] Information: [id number] (27653) Baso (Absolute) 0.0 {x10E3/uL} (Normal) Range: 0.0-0.2 [...] 3.80-5.10 WBC 7.3 {x10E3/uL} (Normal) Range: 4.0-10.5 41-Fek-609437:27 METABOLIC PANEL, COMPREHENSIVE Comments: PATIENT NOT FASTINGPERFORMED BY: [facility] SomersetRtzjps6472 [facility] [id number] (86240) ALT (SGPT) 7 [iU]/L (Normal) Range: 0-40 [...] Glucose, Serum 120 mg/dL (Abnormal) Range: 65-99 35-Fbb-501734:38 Blood Glucose , Office (98651) Blood Glucose , Office 133 (Normal) :57 [...] CHOL 186 mg/dL (Normal) Comments: <200 mg/dL Hfqxafbzq197-799 mg/dL Borderline>240 mg/dL High Risk :57 LIVER ALT 9 U/L (Abnormal) Range: 12-78 D BILI 0.10 mg/dL (Normal) Range: 0.00-0.30 T BILI 0.20 mg/dL (Normal) Range: 0.00-1.00 ALB 3.7 g/dL (Normal) Range: 3.4-5.0 ALK P 51 U/L (Normal) Range: 50-136 AST 6 U/L (Abnormal) Range: 15-37 T PROT 7.3 g/dL (Normal) Range: 6.4-8.2 47-Icu-850664:17 KNEE,4 OR MORE VIEWS (MT) Radiology Report See Note (Normal) Comments: Exam Number: [id number] CLINICAL:Medial pain X-RAY EXAMINATION RIGHT KNEE TECHNIQUE: Five views COMPARISON:June 15, 2007.. FINDINGS: There is generalized osteopenia. Medial joint line Spurs are identified . There is no fracture or dislocation. There are very small retropatellar Spurs. There is no effusion. There's no soft tissue swelling. IMPRESSION:Osteopenia. Mild degenerative arthritis. Reported By: STEPHEN LUNBDERG M.D. :46 CHEST WITHOUT CONTRAST Radiology Report See Note (Normal) Comments: Exam Number: [id number] NONCONTRAST CHEST CT Comparison is made with [...] difficile Toxins Negative (Normal) Comments: PERFORMED BY: [facility] [id number] :51 A+B, EIA :51 Ova + Parasite Exam Comments: PERFORMED BY: [facility] [id number] Ova + Parasite Exam Final report (Normal) Comments: These results were obtained using wet preparation(s) and trichromestained smear. This test does not include testing for Cryptosporidiumparvum, Cyclospora, or Microsporidia. Result 1 NOCP (Normal) Comments: No ova, cysts, or parasites seen. :51 Stool Culture Comments: Clinical Information: SRC:ST PERFORMED BY: [facility] [id number] Campylobacter Culture Final report (Normal) E coli Shiga Toxin EIA Negative (Normal) Result 1 NCI (Normal) Comments: No Campylobacter species isolated. Result 1 NSS (Normal) Comments: No Salmonella or Shigella recovered. Salmonella/Shigella Screen Final report (Normal) 81-Zfp-471367:51 White Blood Cells (WBC), Comments: PERFORMED BY: BELKYS [employer] Thirsty [facility] [id number] Stool Result 1 NWBC (Normal) Comments: No white blood cells seen. White Blood Cells (WBC), Final report (Normal) Comments: Reference Range: None Seen Stool :52 CBC With Differential/Platelet Comments: PATIENT WAS FASTINGPERFORMED BY: [facility] [facility] [id number] Baso (Absolute) 0.0 {x10E3/uL} (Normal) Range: 0.0-0.2 [...] 11.7-15.0 WBC 5.2 {x10E3/uL} (Normal) Range: 4.0-10.5 65-Txx-368107:52 Comp. Metabolic Panel (14) Comments: PATIENT WAS FASTINGPERFORMED BY: [facility] SomersetOtvcow7161 [facility] [id number] A/G Ratio 1.6 (Normal) Range: 1.1-2.5 Albumin, [...] Glucose, Serum 145 mg/dL (Abnormal) Range: 65-99 03-Cuv-238649:52 Lipid Panel With LDL/HDL Comments: PATIENT WAS FASTINGPERFORMED BY: BELKYS [facility] Nbsoqc6365 [facility] [id number] Ratio Cholesterol, Total 135 mg/dL (Normal) Range: [...] pg/mL (Normal) Comments: PATIENT WAS FASTINGPERFORMED BY: Bee There Sbnhsu7775 [facility] [id number] 0:52 Range: 211-911 Vitamin D, 25-Hydroxy 13.6 ng/mL Comments: PATIENT WAS FASTINGPERFORMED BY: Bee There Reitne9431 [facility] [id number] 0:52 (Abnormal) Range: 32.0-100.0 Comments: Recent studies consider the lower limit of 32.0 ng/mL to be athreshold for optimal health.Sunday BETTENCOURT. J Nutr. 2004;135(2):317-22. :32 HgA1C , Office (57774) HgA1C , Office 6.9 % (Normal) Range: 4.6 - 7.1 :32 Blood Glucose , Office (86443) Blood Glucose , Office 179 (Normal) 90-Oux-502065:25 ABDOMEN LIMITED US () Radiology Report See Note (Normal) Comments: Exam Number: [id number] CLINICAL:Abdominal pain. LIMITED ABDOMINAL ULTRASOUND COMPARISON:None. FINDINGS: [...] of cholecystitis. Reported By: HALIMA TURNER M.D. 1-Cjs-522427:35 Urinalysis, Office (92784) UA - BILIRUBIN Moderate (Normal) UA - [...] Panel (14) Comments: PATIENT NOT FASTINGPERFORMED BY: [facility] Lnpmur6943 [facility] [id number] A/G Ratio 1.3 (Normal) Range: 1.1-2.5 Albumin, [...] Sodium, Serum 132 mmol/L (Abnormal) Range: 135-145 :00 Hepatic Function Panel (7) Comments: PATIENT NOT FASTINGPERFORMED BY: [facility] SomersetOobgto4676 [facility] [id number] Bilirubin, Direct 0.17 mg/dL (Normal) Range: 0.00-0.40 :27 CBCD Comments: ORDERED LIPID,LIVER ALSO BASO% 0.6 [...] 11.6-14.6 WBC 5.4 K/mm3 (Normal) Range: 4.4-11.0 :27 LIPID Comments: ORDERED LIPID,LIVER ALSO CHOL 144 [...] g/dL (Normal) Range: 6.4-8.2 :27 VIT D,25 00164 16.4 ng/mL (Abnormal) Comments: ORDERED LIPID,LIVER ALSO Range: 32.0-100.0 Comments: Recent studies consider the lower limit of 32.0 ng/mL to helena threshold for optimal health.Sunday BETTENCOURT. J Nutr. 2004;135(2):317-22.Performed At: [facility] [place], [place] [id number] :27 VITAMIN B12 430 pg/mL (Normal) Comments: ORDERED LIPID,LIVER ALSO Range: 254-1320 57-Hpp-119035:01 BRAIN/HEAD W/WO CONTRAST Radiology Report See Note (Normal) Comments: Exam Number: [id number] CT OF THE HEAD WITH AND WITHOUT CONTRAST [id number]-avr woman who has had vague symptoms of [...] mg/dL (Normal) Range: 0.00-0.30 :51 VIT D,25 69369 6.3 ng/mL (Abnormal) Range: 32.0-100.0 Comments: Recent studies consider the lower limit of 32.0 ng/mL to helena threshold for optimal health.Sunday BETTENCOURT. J Nutr. 2004;135(2):317-22.Performed At: [facility] [place], [place] [id number] :51 VITAMIN B12 301 pg/mL (Normal) Range: 211-911 :43 CHEST WITHOUT CONTRAST Radiology Report See Note (Normal) Comments: Exam Number: [id number] CLINICAL: Nodules CT CHEST WITHOUT CONTRAST COMPARISON:April [...] cardiopulmonary disease Reported By: RIO KAY M.D. 50-Axr-119943:13 HgA1C , Office (32767) HgA1C , Office 7.5 % (Abnormal) Range: 4.6 - 7.1 85-Mjy-362444:13 Blood Glucose , Office (63901) Blood Glucose , Office 203 (Normal) Antiparietal Cell 2.2 {Units} Comments: PERFORMED BY: [facility] [id number] 0:04 Antibody (Normal) Range: 0.0-20.0 Comments: Negative 0.0 - 20.0 Equivocal 20.1 - 24.9 Positive >24.9 . Parietal Cell Antibodies are found in 90% of patients with pernicious anemia and 30% of first degree relatives with pernicious anemia. 67-Oml-629794:04 CBC With Differential/Platelet Comments: PERFORMED BY: isocket[address] [id number] Baso (Absolute) 0.0 {x10E3/uL} Range: 0.0-0.2 (Normal) [...] Factor Abs, Negative (Normal) Comments: PERFORMED BY: [facility] [id number] 0:04 Serum Vitamin B12 472 pg/mL (Normal) Comments: PERFORMED BY: [facility] [id number] 0:04 Range: 211-911 :32 Fecal Occult Blood , Office (90206) Fecal Occult Blood Negative (Normal) , Office Ferritin, Serum 21 ng/mL (Normal) Comments: PATIENT NOT FASTINGPERFORMED BY: [facility]Robert [facility] SomersetOekpsh2316 [facility] [id number] :21 Range: 10-291 Folate (Folic >24.0 ng/mL (Normal) Comments: PATIENT NOT FASTINGPERFORMED BY: [facility]kiteRobert [facility] SomersetRiwbcq5549 [facility] [id number] :21 Acid), Serum Comments: Indeterminate: 3.4 - 5.4 Deficient: <3.4 :21 Iron and TIBC Comments: PATIENT NOT FASTINGPERFORMED BY: [facility]kiteRobert [facility] SomersetEhyejs7223 [facility] [id number] Iron Bind.Cap.(TIBC) 377 ug/dL (Normal) Range: 250-450 Iron Saturation 13 % (Abnormal) Range: 15-55 Iron, Serum 49 ug/dL (Normal) Range: 35-155 UIBC 328 ug/dL (Normal) Range: 150-375 LDH 145 [iU]/L (Normal) Comments: PATIENT NOT FASTINGPERFORMED BY: [place] [id number] [facility] [id number] :21 Range: 100-250 Reticulocyte Count 2.1 % (Normal) Comments: PATIENT NOT FASTINGPERFORMED BY: [place] [id number] [facility] [id number] :21 Range: 0.5-3.0 Vitamin B12 182 pg/mL Comments: PATIENT NOT FASTINGPERFORMED BY: [address] [id number] :21 (Abnormal) Range: 211-911 :33 HgA1C , Office (45484) Comments: done>Wf. HgA1C , Office 6.8 % (Normal) Range: 4.6 - 7.1 :33 Blood Glucose , Office (05701) Comments: done>Wf. Blood Glucose , Office 150 [...] 47-70 WBC 6.1 K/mm3 (Normal) Range: 4.4-11.0 16-Ewe-884942:06 LIPID Comments: SEND A COPY OF THE [...] mg/dL VLDL 54 mg/dL (Abnormal) Range: 5-40 :06 LIVER Comments: SEND A COPY OF THE LIPID AND LIVER RESULTSONLY. JLG ALB 3.6 g/dL (Normal) Range: 3.4-5.0 ALK P 47 U/L (Abnormal) Range: 50-136 ALT 25 U/L (Abnormal) Range: 30-65 AST 14 U/L (Abnormal) Range: 15-37 D BILI 0.06 mg/dL (Normal) Range: 0.00-0.30 T BILI 0.31 mg/dL (Normal) Range: 0.00-1.00 T PROT 6.7 g/dL (Normal) Range: 6.4-8.2 73-Uwv-765888:27 BILAT SCRN DIGITAL & CAD Radiology Report See Note (Normal) Comments: Exam Number: [id number] MAMMOGRAM, BILATERAL SCREENING DIGITAL AND CAD HISTORYRoutine [...] kailash werealso examined with computer-aided detection software (HydroLog[employer].). Reported By: KEYA TREJO M.D. 01-Qqw-540533:27 DEXA BONE DENSITY STUDY (HP) Radiology Report See Note (Normal) Comments: Exam Number: [id number] BONE DENSITOMETRY HISTORYPostmenopausal. TECHNIQUE Bone densitometry of the lumbar spine and left hip was performed. Thebest criteria for evaluation of osteoporosis is the T- value, whichrepresents the comparison of the patient's bone mass to an expectedpeak bone mass. For most patients, the mean T-value of L1 through L4is used to evaluate the lumbar spine. Based on the [facility] WorldHealth Organization classifications, the hip is evaluated [...] left hip. Reported By: KEYA TREJO M.D. 62-Nyv-877125:46 HgA1C , Office (59908) HgA1C , Office 6.7 % (Normal) Range: 4.6 - 7.1 67-Rvw-635787:46 Blood Glucose , Office (64220) Blood Glucose , Office 170 (Normal) :46 [...] Report See Note (Normal) Comments: Exam Number: [id number] RIGHT KNEE CLINICAL INFORMATIONKnee pain. Standing AP [...] Report See Note (Normal) Comments: Exam Number: [id number] CT CHEST NONCONTRAST CLINICAL STATEMENTFollow of lung [...] and esophagus. Reported By: RICHARD CANADA M.D. 71-Zmk-802511:33 HgA1C , Office (54213) HgA1C , Office 6.5 % (Normal) Range: 4.6 - 7.1 :33 Blood Glucose , Office (97566) Blood Glucose , Office 89 (Normal) :34 CBCD,SMEAR DIFF BAND 1 % (Normal) Range: [...] Range: 6.4-8.2 :17 Blood Glucose , Office (01072) Blood Glucose , Office 175 (Normal) :41 [...] Report See Note (Normal) Comments: Exam Number: [id number] CT SCAN OF CHEST HISTORYCough. Consecutive axial scans were obtained at 5-mm [...] is suggested. Reported By: KEYA TREJO M.D. 7-Tld-486364:45 HgA1C , Office (19356) Comments: [facility] HgA1C , Office 6.6 % (Normal) Range: 4.6 - 7.1 :45 Blood Glucose , Office (34353) Comments: [facility] Blood Glucose , Office 105 (Normal) :55 LIPID CHOL 122 mg/dL (Normal) Comments: <200 [...] Report See Note (Normal) Comments: Exam Number: [id number] CHEST PA AND LATERAL STATEMENTCough and pneumonia. [...] CHIVO MONIQUE M.D. :41 HgA1C , Office (65299) HgA1C , Office 6.8 % (Normal) Range: 4.6 - 7.1 :41 Blood Glucose , Office (99248) Blood Glucose , Office 126 (Normal) 65-Oyo-549981:11 CBCD,SMEAR DIFF CELLS COUNTED 100 (Normal) EOS [...] 47-70 WBC 7.4 K/mm3 (Normal) Range: 4.4-11.0 87-Jec-331229:11 COMP METABOLIC A/G 1.1 {RATIO} (Normal) Range: [...] T PROT 7.1 g/dL (Normal) Range: 6.4-8.2 81-Bpa-746295:11 COMPLETE UA BACTERIA 0 SEEN {/hpf} (Normal) [...] 0-5 SEEN :11 MICROALBUMIN,UR 9.1 mg/L (Normal) 70-Vyx-245869:11 PFLIP CHOL 141 mg/dL (Normal) Comments: <200 [...] mg/dL VLDL 58 mg/dL (Abnormal) Range: 5-40 12-Mpq-249480:11 TSH 0.85 {uIU/mL} (Normal) Range: 0.34-4.82 :11 HgA1C , Office (03822) HgA1C , Office 6.7 % (Normal) Range: 4.6 - 7.1 :11 Blood Glucose , Office (27528) Blood Glucose , Office 153 (Normal) Plan [...] mellitus type II, controlled Asthma : Reviewed Public Area Supervisor Letter Indication: Asthma Coronary artery disease : Reviewed Public Area Supervisor Letter Indication: Coronary artery disease Hypertensive heart disease without heart failure : HTN/CAD Red Flags Indication: Hypertensive heart disease without heart failure ATRIAL FIBRILLATION (Renamed from A-fib) : Reviewed Public Area Supervisor Letter Indication: ATRIAL FIBRILLATION (Renamed from A-fib) Type 2 diabetes mellitus, uncontrolled : Follow up in 3 months Indication: Type 2 diabetes mellitus, uncontrolled Coronary artery disease : Reviewed Public Area Supervisor Letter Indication: Coronary artery disease Hypertensive heart [...] heart failure Coronary artery disease : Reviewed Public Area Supervisor Letter Indication: Coronary artery disease Diabetes mellitus [...] ATRIAL FIBRILLATION (Renamed from A-fib) : Reviewed Public Area Supervisor Letter Indication: ATRIAL FIBRILLATION (Renamed from A-fib) [...] ATRIAL FIBRILLATION (Renamed from A-fib) : Reviewed Public Area Supervisor Letter Indication: ATRIAL FIBRILLATION (Renamed from A-fib) Type 2 diabetes mellitus, uncontrolled : Follow up in 3 months Indication: Type 2 diabetes mellitus, uncontrolled Gout, arthritis : Reviewed Lab Indication: Gout, arthritis Asthma : Reviewed Public Area Supervisor Letter Indication: Asthma Type 2 diabetes mellitus, uncontrolled : *Diabetes Education Indication: Type 2 diabetes mellitus, uncontrolled Coronary artery disease : Reviewed Public Area Supervisor Letter Indication: Coronary artery disease Mixed dyslipidemia [...] Indication: Asthma Coronary artery disease : Reviewed Public Area Supervisor Letter Indication: Coronary artery disease Hypertensive heart [...] meninges : Follow up on Friday with [facility] Indication: Benign neoplasm of cerebral meninges [...] : Follow up in 10 days with [facility] Indication: Cough Laryngitis : Laryngitis Education [...] pelvic and bimanual performed Planned Observations TSH (15940)Indication: Diabetes mellitus type II, controlled On: 6-Myi-952455:15 Request URINALYSIS, W/ MICRO (26644)Indication: Diabetes mellitus type II, controlled On: :15 Request MICROALBUMIN: CREATININE RATIO (72219) AND (37486)Indication: Diabetes mellitus type II, controlled On: :15 Request METABOLIC PANEL, COMPREHENSIVE (67975)Indication: Diabetes mellitus type II, controlled On: :15 Request CBC W/AUTO DIFF WBC (78965)Indication: Diabetes mellitus type II, controlled On: :15 Request LIPOPROTEIN, BLD, BY NMR (74575)Indication: Diabetes mellitus type II, controlled On: :15 Request TSH (80264)Indication: ATRIAL FIBRILLATION (Renamed from A-fib) On: 96-Dnr-898942:16 Request URINALYSIS, W/ MICRO (58766)Indication: Diabetes mellitus type II, controlled On: 87-Rnw-339203:16 Request MICROALBUMIN: CREATININE RATIO (05869) AND (69606)Indication: Diabetes mellitus type II, controlled On: 02-Iiw-758468:16 Request METABOLIC PANEL, COMPREHENSIVE (46157)Indication: Diabetes mellitus type II, controlled On: 62-Hrh-343175:16 Request LIPOPROTEIN, BLD, BY NMR (13841)Indication: Diabetes mellitus type II, controlled On: 18-Lkl-458294:16 Request LIPID PANEL (97947)Indication: Diabetes mellitus type II, controlled On: 86-Dkn-425590:16 Request CBC W/AUTO DIFF WBC (15966)Indication: Diabetes mellitus type II, controlled On: 86-Nlg-803319:15 Request VITAMIN B-12 (CYANOCOBALAMIN) (40339)Indication: Other vitamin B12 deficiency anemia On: 3-Rsq-283432:50 Request TSH (73383)Indication: ATRIAL FIBRILLATION (Renamed from A-fib) On: 5-Lgt-594639:50 Request URINALYSIS, W/ MICRO (53255)Indication: Hypertensive heart disease without heart failure On: 7-Rsm-072933:49 Request MICROALBUMIN: CREATININE RATIO (89144) AND (63559)Indication: Hypertensive heart disease without heart failure On: 6-Vun-791845:49 Request METABOLIC PANEL, COMPREHENSIVE (67568)Indication: Hypertensive heart disease without heart failure On: 0-Kqm-947632:49 Request CBC W/AUTO DIFF WBC (90039)Indication: Hypertensive heart disease without heart failure On: 8-Rxe-959066:49 Request CALCIFEDIOL (79495)Indication: Vitamin D deficiency, unspecified On: 6-Xfs-069297:49 Request LIPID PANEL (15164)Indication: Mixed dyslipidemia On: 2-Uuf-043199:49 Request URINALYSIS, W/ MICRO (26064)Indication: Type 2 diabetes mellitus, uncontrolled On: 22-Rhn-048922:23 Request MICROALBUMIN: CREATININE RATIO (22454) AND (54393)Indication: Type 2 diabetes mellitus, uncontrolled On: 31-Irt-800335:23 Request HEMOGLOBIN GLYCLATED (HGB A1C) (56704)Indication: Type 2 diabetes mellitus, uncontrolled On: 10-Nyw-399499:03 Request HgA1C , Office (18867)Indication: Type 2 diabetes mellitus, uncontrolled On: 06-Klb-550894:46 Request Vitamin D Hydroxy (27931)Indication: Vitamin D deficiency, unspecified On: 95-Izt-899915:16 Request VITAMIN B-12 (CYANOCOBALAMIN) (90542)Indication: Other vitamin B12 deficiency anemia On: 59-Acr-131165:16 Request CBC with auto diff (73374)Indication: Iron deficiency anemia, unspecified On: 08-Lgh-700440:15 Request LIPID PANEL (40107)Indication: Mixed dyslipidemia On: 73-Emu-589877:15 Request METABOLIC PANEL, COMPREHENSIVE (60524)Indication: Type 2 diabetes mellitus, uncontrolled On: 79-Jki-488358:15 Request CBC W/AUTO DIFF WBC (77662)Indication: Iron deficiency anemia, unspecified On: 38-Uib-986854:44 Request URINALYSIS, W/ MICRO (47566)Indication: Heart disease, hypertensive, malignant, without heart failure On: 54-Yal-800782:44 Request METABOLIC PANEL, COMPREHENSIVE (84161)Indication: Heart disease, hypertensive, malignant, without heart failure On: 10-Rfw-296607:44 Request MICROALBUMIN: CREATININE RATIO (67560) AND (99988)Indication: Heart disease, hypertensive, malignant, without heart failure On: 97-Xvl-329463:44 Request IRON (40631)Indication: Iron deficiency anemia, unspecified On: 65-Hls-497762:44 Request CBC, Platelets & Auto Diff (75265)Indication: SOB On: :09 Request Renal function Panel (71646)Indication: SOB On: 0-Prz-572011:09 Request Vitamin D Hydroxy (06067)Indication: Vitamin D deficiency, unspecified On: 63-Rkd-234669:04 Request VITAMIN B-12 (CYANOCOBALAMIN) (32277)Indication: Other vitamin B12 deficiency anemia On: 00-Bwv-646478:04 Request METABOLIC PANEL, COMPREHENSIVE (95154)Indication: Type 2 diabetes mellitus, uncontrolled On: 87-Ecz-352662:04 Request IRON (50930)Indication: Iron deficiency anemia, unspecified On: 84-Yjz-644516:59 Request IRON (01154)Indication: Iron deficiency anemia, unspecified On: 02-Jvj-988082:18 Request CBC WITH MANUAL DIFF (34349)Indication: Iron deficiency anemia, unspecified On: 15-Icu-615014:43 Request METABOLIC PANEL, COMPREHENSIVE (01747)Indication: Hypertensive heart disease without heart failure On: 74-Urw-902368:43 Request CBC with manual diff (43330)Indication: Anemia On: :53 Request Comments: recheck in 3 months Ferritin (35942)Indication: Anemia On: :53 Request Iron Binding Capacity (TIBC) (65808)Indication: Anemia On: :53 Request Iron (77523)Indication: Anemia On: :53 Request LIPID PANEL (62593)Indication: Mixed dyslipidemia On: 81-Pan-564997:43 Request IRON (07350)Indication: Iron deficiency anemia, unspecified On: 99-Zak-532650:35 Request Vitamin D Hydroxy (26561)Indication: Vitamin D deficiency, unspecified On: 3-Zmz-348535:14 Request METABOLIC PANEL, COMPREHENSIVE (97610)Indication: Type 2 diabetes mellitus, uncontrolled On: 4-Dzc-889946:13 Request IRON BINDING CAPACITY (TIBC) (34290)Indication: Iron deficiency anemia, unspecified On: 4-Yta-433706:10 Request FERRITIN (30799)Indication: Iron deficiency anemia, unspecified On: 8-Ufm-773221:10 Request IRON (67448)Indication: Iron deficiency anemia, unspecified On: 8-Fgm-684127:10 Request MICROALBUMIN: CREATININE RATIO (71802) AND (00543)Indication: Type 2 diabetes mellitus, uncontrolled On: :58 Request METABOLIC PANEL, COMPREHENSIVE (58369)Indication: Type 2 diabetes mellitus, uncontrolled On: :58 Request CBC WITH MANUAL DIFF (59899)Indication: Type 2 diabetes mellitus, uncontrolled On: :58 Request Vitamin D Hydroxy (73433)Indication: Vitamin D deficiency, unspecified On: : Request VITAMIN B-12 (CYANOCOBALAMIN) (51775)Indication: Other vitamin B12 deficiency anemia On: :58 Request LIPID PANEL (32519)Indication: Mixed dyslipidemia On: : Request METABOLIC PANEL, COMPREHENSIVE (97493)Indication: Hypertension On: : Request CBC WITH MANUAL DIFF (17528)Indication: Other vitamin B12 deficiency anemia On: : Request VITAMIN D, 1, 25-DIHYDROXY (17548)Indication: Vitamin D deficiency, unspecified On: : Request Vitamin D Hydroxy (90836)Indication: Vitamin D deficiency, unspecified On: :29 Request LIPID PANEL (40503)Indication: Mixed dyslipidemia On: : Request METABOLIC PANEL, COMPREHENSIVE (04445)Indication: Diabetes mellitus type II, controlled On: : Request CBC WITH MANUAL DIFF (46176)Indication: Other vitamin B12 deficiency anemia On: :29 Request MICROALBUMIN: CREATININE RATIO (08358) AND (48281)Indication: Diabetes mellitus type II, controlled On: :29 Request VITAMIN B-12 (CYANOCOBALAMIN) (33894)Indication: Other vitamin B12 deficiency anemia On: :29 Request HEMOGLOBIN GLYCLATED (HGB A1C) (46032)Indication: Diabetes mellitus type II, controlled On: :27 Request LIPID PANEL (13869)Indication: Mixed dyslipidemia On: :16 Request METABOLIC PANEL, COMPREHENSIVE (55361)Indication: Type 2 diabetes mellitus, uncontrolled On: :15 Request CBC WITH MANUAL DIFF (10580)Indication: Type 2 diabetes mellitus, uncontrolled On: 04-Yje-43928:15 Request MICROALBUMIN: CREATININE RATIO ([id number]) AND ([id number])Indication: Type 2 diabetes mellitus, uncontrolled On: 71-Wvl-12622:15 Request VITAMIN B-12 (CYANOCOBALAMIN) (59136)Indication: Other vitamin B12 deficiency anemia On: :15 Request Vitamin D Hydroxy (68680)Indication: Vitamin D deficiency, unspecified On: :15 Request HgA1C , Office (44815)Indication: Type 2 diabetes mellitus, uncontrolled On: 35-Hcf-901306:38 Request VITAMIN B-12 (CYANOCOBALAMIN) (15920)Indication: Other vitamin B12 deficiency anemia On: :55 Request LIPID PANEL (09572)Indication: Mixed dyslipidemia On: :55 Request METABOLIC PANEL, COMPREHENSIVE (48630)Indication: Heart disease, hypertensive, malignant, without heart failure On: :53 Request CBC WITH MANUAL DIFF ([id number])Indication: Diverticulitis On: :53 Request LEUKOCYTE COUNT, FECAL ([id number])Indication: Diarrhea On: :47 Request C.Difficile, Stool (79918)Indication: Diarrhea On: :47 Request BRO CULTURE-STOOL (80284)Indication: Diarrhea On: :47 Request Metabolic Panel, Comprehensive (77089)Indication: Abdominal pain, unspecified abdominal location On: :46 Request HEPATIC FUNCTION PANEL (72864)Indication: Abdominal pain, unspecified abdominal location On: :46 Request Bilirubin, Direct (63815)Indication: Abdominal pain, unspecified abdominal location On: :44 Request Bilirubin, total (93448)Indication: Abdominal pain, unspecified abdominal location On: :44 Request CBC WITH MANUAL DIFF ([id number])Indication: Other vitamin B12 deficiency anemia On: 36-Haf-656860:15 Request VITAMIN B-12 (CYANOCOBALAMIN) (65435)Indication: Other vitamin B12 deficiency anemia On: 03-Wqf-630365:15 Request LIPID PANEL (57031)Indication: Mixed dyslipidemia On: 15-Nvn-959507:14 Request METABOLIC PANEL, COMPREHENSIVE (04728)Indication: Heart disease, hypertensive, malignant, without heart failure On: 66-Stl-499280:14 Request Vitamin D Hydroxy (51133)Indication: Vitamin D deficiency, unspecified On: 92-Mhd-457407:06 Request CBC, PLATELETS & AUT DIFF (76625)Indication: Other vitamin B12 deficiency anemia On: :45 Request VITAMIN B-12 (CYANOCOBALAMIN) (08011)Indication: Other vitamin B12 deficiency anemia On: :45 Request HEPATIC FUNCTION PANEL (82956)Indication: Mixed dyslipidemia On: :44 Request LIPID PANEL (44088)Indication: Mixed dyslipidemia On: :44 Request Vitamin D Hydroxy (25980)Indication: vit d deficiency On: :33 Request Vitamin D Hydroxy (49569) On: :04 Request VITAMIN B-12 (CYANOCOBALAMIN) (34020)Indication: Other vitamin B12 deficiency anemia On: :04 Request CBC WITH MANUAL DIFF ([id number])Indication: Heart disease, hypertensive, malignant, without heart failure On: 54-Zvu-791338:03 Request METABOLIC PANEL, COMPREHENSIVE (95205)Indication: Heart disease, hypertensive, malignant, without heart failure On: 89-Xbs-284283:03 Request LIPOPROTEIN, BLD, BY NMR ([id number])Indication: Mixed dyslipidemia On: : Request HEPATIC FUNCTION PANEL (96012)Indication: Mixed dyslipidemia On: 90-Jik-632127: Request LIPID PANEL ([id number])Indication: Mixed dyslipidemia On: 83-Wig-771090: Request FOLIC ACID SERUM (78732)Indication: Anemia On: :06 Request FERRITIN (94841)Indication: Anemia On: : Request IRON ([id number])Indication: Anemia On: : Request IRON BINDING CAPACITY (TIBC) ([id number])Indication: Anemia On: : Request RETICULOCYTE COUNT MANUL ([id number])Indication: Anemia On: 40-Qzr-673778: Request LDH (LD) (LACTATE DEHYDROGENASE) (52428)Indication: Anemia On: :05 Request VITAMIN B-12 (CYANOCOBALAMIN) (68743)Indication: Anemia On: :05 Request CBC WITH MANUAL DIFF ([id number])Indication: Anemia On: :25 Request HEPATIC FUNCTION PANEL (04655)Indication: Mixed dyslipidemia On: : Request LIPID PANEL (47891)Indication: Mixed dyslipidemia On: Request MICROALBUMIN URINE QUANT (55730)Indication: Hypertension On: :42 Request TSH (66941)Indication: Hypertension On: :42 Request METABOLIC PANEL, COMPREHENSIVE (87677)Indication: Diabetes mellitus type II, controlled On: :42 Request HEPATIC FUNCTION PANEL (73119)Indication: Mixed dyslipidemia On: :42 Request LIPID PANEL (17946)Indication: Mixed dyslipidemia On: :42 Request CBC WITH MANUAL DIFF ([id number])Indication: Anemia On: :36 Request HEPATIC FUNCTION PANEL (05957)Indication: Mixed dyslipidemia On: 19-Qeu-94520:36 Request LIPID PANEL (30167)Indication: Mixed dyslipidemia On: :36 Request HgA1C , Office (15588)Indication: Diabetes mellitus type II, controlled On: :17 Request URINALYSIS W/O MICRO (21734)Indication: Hypertension On: :47 Request TSH ([id number])Indication: Hypertension On: 49-Gyx-399586:47 Request METABOLIC PANEL, COMPREHENSIVE ([id number])Indication: Hypertension On: :47 Request CBC WITH MANUAL DIFF ([id number])Indication: Hypertension On: 86-Kjg-535850:47 Request Thin prep Pap ([id number])Indication: well female - pap pelvic and bimanual performed On: 1-Pbr-551948:02 Request Planned Encounters Medical; 3 Month FU - On: 23-Mar-2018 10:00 [facility] Nia Uriostegui DO, DO, Kathleen Planned Procedures Spirometry (47301)By: Mt OJEDA, On: 06-Jan-2018 Intent Sherrie Beck Comments: Mod restriction Spirometry (53814)By: Mt OJEDA, On: 06-Jan-2018 Intent Sherrie Beck Comments: pre mild restriction Solu -Medrol Injection, 125 mg On: 06-Jan-2018 Intent (J2930)By: Mt OJEDA Carlotta Aerosol Treatment (80777)By: Mt On: 06-Jan-2018 Intent RUSTY Carlotta CHEST XRAY, PA & LATERAL (32884)By: On: 06-Jan-2018 Intent Sherrie Amor CNP Aerosol Treatment (69454)By: Mt On: 30-Dec-2017 Intent RUSTY Carlotta Flu Vaccine (Quadrivalent) 00509Wd: On: 15-Dec-2017 Intent Nia Uriostegui DO, DO, Comments: Lot #[id number]-L dltd, IMDose prefilled syringegiven by: Susie Lopez LPN.VIS reviewed and ABN signed Nia B 12 Injection, 1000 mcg (J3420)By: On: 15-Dec-2017 Intent Nia Uriostegui DO, DO, Comments: 1 ml given rt dltd lot [id number] exp 05/30 Nia ELECTROCARDIOGRAM, COMPLETE (ECG) On: 15-Dec-2017 Intent (63972)By: Nia Uriostegui DO Comments: nsr !! 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 B 12 Injection, 1000 mcg (J3420)By: On: 12-Feb-2017 Intent Nia Uriostegui DO, DO, Comments: 1 ml given lt arm lot [id number] exp 06/28 Nia B 12 Injection, 1000 mcg (J3420)By: On: 29-Nov-2016 Intent Moody DO, Nia Moody DO, Comments: b12 1000mcglot: [id number]: 03/2018L DELT IMpt tolerated wellAD KASIA Kramer Flu Vaccine (Quadrivalent) 72065Yl: On: 07-Nov-2016 Intent Moody DO, Nia Moody DO, Comments: Lot:[id number]:07/28/17Amt:0.5mlRoute:IMSite: L DltdGiven By: RAHUL Bar signed Nia B 12 Injection, 1000 mcg (J3420)By: On: 04-Nov-2016 Intent Moody DO, Nia Moody DO, Comments: lot [id number] exp mcgleft dltdIMas Nia B 12 Injection, 1000 mcg (J3420)By: On: 08-Aug-2016 Intent Moody DO, Nia Moody DO, Comments: Lot:[id number]:07/28Dose:1mlRoute:IMSite:l armGiven By:SASKIA signed Nia B 12 Injection, 1000 mcg (J3420)By: On: 24-Apr-2016 Intent Moody DO, Nia Moody DO, Comments: Lot:[id number]:05/28Dose:1mlRoute:IMSite:Given By:SASKIA signed Nia ELECTROCARDIOGRAM, COMPLETE (ECG) On: 24-Apr-2016 Intent (67684)By: Nia Uriostegui DO Comments: sinus ana no acute chg Moody DODiogoNia Aerosol Treatment (36001)By: Bela On: 27-Feb-2016 Intent Balbir ROSAS Solu- Medrol Injection, 125mg On: 27-Feb-2016 Intent (J2930)By: Balbir Cramer MD Comments: lot [id number] 07/20180335603 mgleft KASIA Love Pulse Oximetry (17206)By: Bela ROSAS, On: 16-Jan-2016 Intent Balbir Aerosol Treatment (55528)By: Bela On: 16-Jan-2016 Intent Balbir ROSAS Solu- Medrol Injection, 125mg On: 16-Jan-2016 Intent (J2930)By: Balbir Cramer MD Comments: Lot:[id number]:06/28Dose:125mgRoute:imSite:r hipGiven By:SASKIA signed CHEST XRAY, PA & LATERAL (04853)By: On: 16-Jan-2016 Intent Balbir Cramer MD Comments: ?PNA CAROTID ULTRASOUND (53140)By: Bela On: 16-Jan-2016 Intent Balbir ROSAS DEXA SCAN AXIAL SKELETON (70769)By: On: 16-Jan-2016 Intent Balbir Cramer MD MAMMOGRAM, SCREENING, BOTH BREAST On: 16-Jan-2016 Intent (81602)By: Balbir Cramer MD B 12 Injection, 1000 mcg (J3420)By: On: 16-Jan-2016 Intent Balbir Cramer MD Comments: lot: [id number]: ite/route: L del/IMamt: 1mLVIS signed when applicableMONSTER Molina B 12 Injection, 1000 mcg (J3420)By: On: 11-Oct-2015 Intent Balbir Cramer MD Flu Vaccine (Quadrivalent) 14313Qw: On: 11-Oct-2015 Intent Balbir Cramer MD Comments: Lot #[id number]/30/17ite-L dltd, IMDose prefilled syringegiven by:MAYCO OSWALD and ABN signed B 12 Injection, 1000 mcg (J3420)By: On: 22-May-2015 Intent Al MCFARLAND Maylin A B 12 Injection, 1000 mcg (J3420)By: On: 17-Mar-2015 Intent Layton Melendez DOa A Comments: lot: [id number]: 10/27site/route: L del/IMamt: 1mLVIS signed when applicableMONSTER Molina PNEUM VAC ADLT/IMUMNOSPR, SBC/INTRM On: 30-Dec-2014 Intent (28089)By: Al DO Maylin A Comments: PNUEMOlot:[id number]:site:Rt deltoidroute:IMdose:.5mlDEMICK, SMA B 12 Injection, 1000 mcg (J3420)By: On: 30-Dec-2014 Intent Layton Melendez DOa A Comments: B12lot:[id number]:05/27site: LT deltoidROute: IMdose:1ml ADMINISTRATION OF INFLUENZA VIRUS On: 21-Oct-2014 Intent VACCINE (G0008)By: Maylin Melendez DO FLU VAC, SPLIT, >3 YEARS, INTRAMUSC On: 21-Oct-2014 Intent (51622)By: Maylin Melendez DO Comments: lot: [id number]: 08/09/16site/route: L del/IMamt: 1mLVIS signed when applicableChelsea, CHROME PLATER HELPER MAMMOGRAM, SCREENING, BOTH BREAST On: 05-Oct-2014 Intent (20026)By: Maylin Melendez DO Cartoid DopplerBy: Maylin Melendez DO On: 05-Oct-2014 Intent B 12 Injection, 1000 mcg (J3420)By: On: 05-Oct-2014 Intent Maylin Melendez DO Comments: Lot:[id number]:Route:IMSite:R deltoidDose: 1 mLgiven by: Adalgisa Sexton CMA B 12 Injection, 1000 mcg (J3420)By: On: 01-Sep-2014 Intent Adalgisa Sexton Comments: Lot:[id number]:12.26Route:IMSite:R deltoidDose: 1 mLgiven by: Adalgisa Sexton CMA B 12 Injection, 1000 mcg (J3420)By: On: 26-May-2014 Intent Adalgisa Sexton Comments: lot:[id number]:04/25route:IMdose:1MLSite:R deltoidgiven by: ANS B 12 Injection, 1000 mcg (J3420)By: On: 11-Apr-2014 Intent Kaci Gomez LPN Comments: lot: [id number]: 11/25Dose: 1,000 mcgSite: l dltdLocation; IMby: Solu -Medrol Injection, 125 mg On: 22-Feb-2014 Intent (J2930)By: Maylin Melendez DO Comments: ivyJ38139ghm 6.31213 mgleft gmIMas, OPERATORS TEACHER Solu -Medrol Injection, 125 mg On: 31-Jan-2014 Intent (J2930)By: Sherrie Amor CNP Comments: lot [id number] 06/2016location R hiproute imgiven by - msmith VIS and/or ABN signed B 12 Injection, 1000 mcg (J3420)By: On: 21-Jan-2014 Intent Maylin Melendez DO Comments: lot [id number] 05/2015location L armroute imgiven by - natasha PLASENCIA and/or ABN signed Aerosol Treatment (88685)By: Mt On: 14-Jan-2014 Intent Sherrie OJEDA Radiology - ChestBy: Mt OJEDA, On: 14-Jan-2014 Intent Sherrie Beck Comments: stat call results to Dr Uriostegui is aircraft air conditioning mechanic EKG (68674)By: Sherrie Amor CNP On: 14-Jan-2014 Intent Comments: looks same as before No new ST -t wave changes ADMINISTRATION OF INFLUENZA VIRUS On: 29-Nov-2013 Intent VACCINE (G0008)By: Maylin Melendez DO Comments: Lot #[id number]-7.2015Site-L dltd, IMDose prefilled syringegiven by:LORIN laurent and ABN signed FLU VAC, SPLIT, >3 YEARS, INTRAMUSC On: 29-Nov-2013 Intent (89312)By: Maylin Melendez DO B 12 Injection, 1000 mcg (J3420)By: On: 29-Nov-2013 Intent Maylin Melendez DO Comments: given, R dltd, Im - see flowsheet for lot and exp Radiology - Knee - Left - Weight On: 06-Sep-2013 Intent BearingBy: Maylin Melendez DO MAMMOGRAM, SCREENING, BOTH BREAST On: 18-Aug-2013 Intent (65014)By: Maylin Melendez DO B 12 Injection, 1000 mcg (J3420)By: On: 18-Aug-2013 Intent Maylin Melendez DO Aerosol Treatment (73101)By: Mt On: 16-Jul-2013 Intent Sherrie OJEDA Aerosol Treatment (25786)By: Mt On: 09-Jul-2013 Intent Sherrie OJEDA Radiology - ChestBy: Mt OJEDA, On: 09-Jul-2013 Intent Sherrie Beck Eprescribed prescriptions On: 09-Jul-2013 Intent (G8553)By: Sherrie Amor CNP B 12 Injection, 1000 mcg (J3420)By: On: 24-Jun-2013 Intent Visit, Nurse Eprescribed prescriptions On: 24-Jun-2013 Intent (G8553)By: Visit, Nurse Solu- Medrol Injection, 125mg On: 21-Jun-2013 Intent (J2930)By: Sherrie Amor CNP DopplerBy: Maylin Melendez DO On: 05-May-2013 Intent Eprescribed prescriptions On: 05-May-2013 Intent (G8553)By: Maylin Melendez DO B 12 Injection, 1000 mcg (J3420)By: On: 27-Apr-2013 Intent Visit, Nurse Comments: Lot:[id number]:12/25Dose:1mlRoute:IMSite:l armGiven By:SASKIA signed Aerosol Treatment (29602)By: Moody On: 17-Feb-2013 Nia Amaya DO, DO, Kathleen Comments: more q/e less cough -- ok to use rescue inhaler prn not moer than bid with a fib -- if needs ansd worsen go to ER-- pulse reguar after treatment Spirometry (89346)By: Moody MCFARLAND, On: 17-Feb-2013 Intent Nia Reed DO Comments: mild restriction -- stable Solu- Medrol Injection, 125mg On: 17-Feb-2013 Intent (J2930)By: Nia Uriostegui DO Comments: lot: [id number]: ite/route: RGM/IMamt: 2mLVIS signed when applicableChelsMONSTER armenta DO, Kathleen Eprescribed prescriptions On: 17-Feb-2013 Intent (G8553)By: Nia Uriostegui DO, DO, Kathleen EKG (60304)By: Maylin Melendez DO On: 12-Jan-2013 Intent Comments: ekg showed normal sinus rhythym, left axis, no acute st/t wave changes Pelvic and Breast, Medicare On: 12-Jan-2013 Intent (G0101)By: Natalya Kohli Eprescribed prescriptions On: 18-Dec-2012 Intent (G8553)By: Maylin Melendez DO FLU VAC, SPLIT, >3 YEARS, INTRAMUSC On: 18-Dec-2012 Intent (13132)By: Natalya Kohli Comments: Lot #:[id number] date:mount given:0.5mlRoute: IMSite given: L dltdVIS and ABN signedGiven by: CHILO Gillespie ADMINISTRATION OF INFLUENZA VIRUS On: 18-Dec-2012 Intent VACCINE (G0008)By: Natalya Kohli B 12 Injection, 1000 mcg (J3420)By: On: 01-Dec-2012 Intent Tracy Barnes Comments: Lot:[id number]:09/24Dose:1mlRoute:IMSite:l armGiven By:SASKIA signed Eprescribed prescriptions On: 02-Nov-2012 Intent (G8553)By: Sherrie Amor CNP Radiology - Foot - RightBy: Mt On: 02-Nov-2012 Intent Sherrie OJEDA B 12 Injection, 1000 mcg (J3420)By: On: 19-Oct-2012 Intent Tracy Barnes Comments: lot: [id number]: 09/23site/route: L deltoid/IMamt: 1mLVIS signed when applicableChebridgette CHROME PLATER HELPER B 12 Injection, 1000 mcg (J3420)By: On: 31-Aug-2012 Intent Maylin Melendez DO Comments: Lot: [id number]: Pdg25Zne: 1000mcg/1mlRoute: IMSite: L deltoidGiven by: KASIA Samson Eprescribed prescriptions On: 31-Aug-2012 Intent (G8553)By: Natalya Kohli Nuclear Medicine - Other - On: 18-Aug-2012 Intent Vertebral AssessmentBy: Al MCFARLAND, Comments: Lela Sherman DXA, BONE DENSITY, AXIAL SKELETON On: 22-Jun-2012 Intent (68488)By: Maylin Melendez DO MAMMOGRAM, SCREENING, BOTH BREASTS On: 22-Jun-2012 Intent (69866)By: Maylin Melendez DO B 12 Injection, 1000 mcg (J3420)By: On: 15-Jun-2012 Intent Tracy Barnes Comments: lot: [id number]: 12/24site/route: R deltoid/IMamt: 1,000mcgVIS signed when applicableChelsea, CHROME PLATER HELPER Eprescribed prescriptions On: 17-Apr-2012 Intent (G8553)By: Natalya Kohli B 12 Injection, 1000 mcg (J3420)By: On: 13-Apr-2012 Intent Ramona Vásquez Comments: Lot:[id number]:01/23Dose:1mlRoute:IMSite:r armGiven By:SASKIA signed Eprescribed prescriptions On: 27-Mar-2012 Intent (G8553)By: Susie Lopez LPN FLU VAC, SPLIT, >3 YEARS, INTRAMUSC On: 17-Jan-2012 Intent (67642)By: Maylin Melendez DO Comments: Lot #[id number]-6/13Site-left deltoidgiven by: Emili Stark LPN ADMINISTRATION OF INFLUENZA VIRUS On: 17-Jan-2012 Intent VACCINE (G0008)By: Maylin Melendez DO Eprescribed prescriptions On: 17-Jan-2012 Intent (G8553)By: Natalya Kohli B 12 Injection, 1000 mcg (J3420)By: On: 31-Dec-2011 Intent Maylin Melendez DO Comments: Lot:[id number]:Dose:1mlRoute:IMSite:L armGiven By:JACQUIE Aerosol Treatment (57323)By: Mt On: 24-Dec-2011 Intent Sherrie OJEDA B 12 Injection, 1000 mcg (J3420)By: On: 29-Oct-2011 Intent Natalya Kohli Comments: Lot #[id number]-11.13Site-R arm, IMDose-prefilled syringegiven by:RAHUL Malloy signed CT - ChestBy: Maylin Melendez DO On: 24-Sep-[address] - ChestBy: Maylin Melendez DO A On: 24-Sep-2011 Intent Holter Monitor 24 hrsBy: Al MCFARLAND, On: 17-Sep-2011 Intent Maylin A Comments: please do this week and copy to dr clements EKCheyenne (15666)By: Maylin Melendez DO On: 17-Sep-2011 Intent Comments: [...] Ericka TELLEZ Comments: Lot #: [id number] date: ount given: 1 mlRoute: IMSite given: right deltoidGiven by: GEOFF Salcido MAMMOGRAM, SCREENING, BOTH BREASTS On: 14-May-2011 Intent (58018)By: Maylin Melendez DO CT - ChestBy: Maylin Melendez DO A On: 14-May-2011 Intent Comments: due next month B 12 Injection, 1000 mcg (J3420)By: On: 16-Apr-2011 Intent Mast Ericka TELLEZ Comments: Lot #: [id number] date: ount given: 1000 mcg/mlRoute: IMSite given: right deltoidGiven [...] On: 14-Jan-2011 Intent (G8553)By: Maylin Melendez DO A CT - ChestBy: Maylin Melendez DO On: 14-Jan-2011 Intent B 12 Injection, 1000 mcg (J3420)By: On: 21-Nov-2010 Intent Carol Reina LPN Comments: Lot #[id number]-11.21Site-Right dltd, IMDose 1mlgiven by:KASIA Medina Solu -Medrol Injection, 125 mg On: 24-Aug-2010 Intent (J2930)By: Sherrie Amor CNP Comments: Lot #[id number]-2.13Site-R hip, IMDose 125mg, 2 mlgiven by:MARTITA Aerosol Treatment (02007)By: Mt On: 24-Aug-2010 Intent Sherrie OJEDA Pulse Oximetry (90282)By: Keesha TELLEZ, On: 24-Aug-2010 Intent Ericka Spirometry (48262)By: Al MCFARLAND, On: 03-Aug-2010 Intent Maylin Sherman Comments: good efffort and curve normal EKG (96452)By: Maylin Melendez DO On: 03-Aug-2010 Intent Comments: ekg showed normal sinus rhythym, normal axis, no acute st/t wave changes poor r wave progression Radiology - Chest- PA and LatBy: On: 03-Aug-2010 Intent Maylin Melendez DO B 12 Injection, 1000 mcg (J3420)By: On: 11-Jul-2010 Intent Carol Stark LPN Comments: Lot #[id number]-01/20Site-left deltoidDose-1 mlgiven by: Emili Stark LPN TD Injection , IM (09655)By: Al On: 20-Apr-2010 Intent Maylin MCFARLAND Comments: Lot #[id number]-9/12Site-L dtd, IMDose prefilledgiven by:MARTITA B 12 Injection, 1000 mcg (J3420)By: On: 04-Apr-2010 Intent Carol Stark LPN Comments: Lot #[id number]-12Site-left deltoidDose-1 mlgiven by:[facility] B 12 Injection, 1000 mcg (J3420)By: On: 16-Jan-2010 Intent Carol Reina LPN Comments: Lot #[id number]-6/11Site-R lsgXhwd5bxlxcyv by:MARTITA B 12 Injection, 1000 mcg (J3420)By: On: 12-Dec-2009 Intent Carol Stark LPN Comments: Lot #[id number]-06/21Site-left deltoidDose-1 mlgiven by:MAYRA FLU VAC, SPLIT, >3 YEARS, INTRAMUSC On: 14-Nov-2009 Intent (04832)By: Natalya Kohli ADMINISTRATION OF INFLUENZA VIRUS On: 14-Nov-2009 Intent VACCINE (G0008)By: Seun, Comments: Lot #: [id number] date:mount given: 0.5 mlRoute: IMSite given: left deltoid Given by: GEOFF Hilton DXA, BONE DENSITY, AXIAL SKELETON On: 01-Nov-2009 Intent (72951)By: Maylin Melendez DO MAMMOGRAM, SCREENING, BOTH BREASTS On: 01-Nov-2009 Intent (20475)By: Maylin Melendez DO ADMINISTRATION OF PNEUMOCOCCAL On: 01-Nov-2009 Intent VACCINE (G0009)By: Maylin Melendez DO PNEUM VAC ADLT/IMUMNOSPR, SBC/INTRM On: 01-Nov-2009 Intent (85369)By: Maylin Melendez DO B 12 Injection, 1000 mcg (J3420)By: On: 01-Nov-2009 Intent Carol Reina LPN Comments: Lot #[id number]-06/21Site-L dltdDose 30m/mlgiven by:KASIA GONZALES Pneumovax (59243)By: Nuno PEDROZA, On: 01-Nov-2009 Intent Carol Mead Comments: Lot #[id number]-August 2010Site-R dltdDose 0.5mlgiven by:KASIA ANDERS B 12 Injection, 1000 mcg (J3420)By: On: 25-Aug-2009 Intent Carol Stark LPN Comments: Lot #[id number]-03/24Site-left deltoidDose-1 mlgiven by:MAYRA B 12 Injection, 1000 mcg (J3420)By: On: 13-Jul-2009 Intent Monik Rushing Comments: Lot #[id number]-01/2011Site-left kmyvczrBohz3957qqh/1mlgiven by Diana Rushing LPN CT - ChestBy: Maylin Melendez DO A On: 05-Jun-2009 Intent Spirometry (97923)By: Seun, On: 05-Jun-2009 Intent Natalya Comments: goo deffort and curve mild small airway obst B 12 Injection, 1000 mcg (J3420)By: On: 24-May-2009 Intent Carol Stark LPN Comments: Lot #[id number]-09/20Site-right deltoidDose-1 mlgiven by:[facility] Radiology - Knee - Right - Weight On: 23-Dec-2008 Intent BearingBy: Maylin Melendez DO B 12 Injection, 1000 mcg (J3420)By: On: 23-Dec-2008 Intent Natalya Kohli Comments: Lot #:[id number] date:mount given:1mlRoute: IMSite given:left deltoidGiven by: CHILO Gillespie Aerosol Treatment (65321)By: On: 08-Nov-2008 Intent Natalya Carter Comments: post treatment breath sounds clear bilat. pt. states feels breathing better. Pulse Oximetry (28861)By: Raul On: 08-Nov-2008 Intent Natalya Comments: 95% CT - ChestBy: Maylin Melendez DO On: 03-Oct-2008 Intent Comments: november Ultrasound - GallbladderBy: Jennifera On: 15-Sep-2008 Intent RUSTY Carlotta Ultrasound - Abdomen Complete & On: 15-Sep-2008 Intent PelvisBy: Ciesa RUSTY Carlotta B 12 Injection, 1000 mcg (J3420)By: On: 07-Sep-2008 Intent Mya Barahona Comments: lot #:[id number]:04/2010site:right deltoidGiven by CHILO Roque B 12 Injection, 1000 mcg (J3420)By: On: 02-Aug-2008 Intent Maylin Melendez DO Comments: 1ml given im lt mamie lot [id number] exp 12-20 B 12 Injection, 1000 mcg (J3420)By: On: 05-Jul-2008 Intent Maylin Melendez DO Comments: Lot #[id number]-12/2009Site-left hkcqmgpFhtl1944rpg/1mlgiven by Diana Rushing LPN CT - Brain/HeadBy: Al DO, Maylin A On: 31-May-2008 Intent EKG (99683)By: Al MCFARLAND Maylin A On: 10-May-2008 Intent Comments: ekg showed normal sinus rhythym, leftaxis, nonspecific t changges unchanged fromprevious Echo CompleteBy: Al DO, Maylin A On: 10-May-2008 Intent PFT - CompleteBy: Fast Maylin A On: 10-May-2008 Intent Pulse Oximetry (04040)By: Al , On: 10-May-2008 Intent Maylin A Comments: 95 Spirometry (98383)By: , On: 10-May-2008 Intent Maylin A Comments: good effort and curve mild restriction CT - ChestBy: Maylin A On: 10-May-2008 Intent Bio Z (47244)By: Al MCFARLAND Maylin A On: 10-May-2008 Intent [...] Lot #[id number] date:mount given:1mlSite given: left deltoidGiven by: INJECTION, VITAMIN B-12 On: 01-Feb-2008 Intent CYANOCOBALAMIN, UP TO 1000 MCG (Special Coverage Instructions Apply. See CIM: 45-4 and MCM: 2048) (J3420)By: Adriane Muhammad LPN B 12 Injection, 1000 mcg (J3420)By: On: 01-Jan-2008 Intent Monik Rushing Comments: Lot #[id number]-5/10Site-left ejfdvjoEzsp8cqxbiqt by Diana Rushing LPN INJECTION, VITAMIN B-12 On: 03-Dec-2007 Intent CYANOCOBALAMIN, UP TO 1000 MCG Comments: injection given in left deltoid, Ptolerated welllo # [id number] 06/19 (Special Coverage Instructions Apply. See CIM: 45-4 and MCM: 2048) (J3420)By: Irais Monreal B 12 Injection, 1000 mcg (J3420)By: On: 26-Nov-2007 Intent Monik Rushing Comments: Lot #[id number]-06/19Site-left dlvyccaLelp0sgbetqa by Diana Rushing LPN INJECTION, VITAMIN B-12 [...] Maylin Melendez DO On: 30-Oct-2007 Intent Spirometry (59600)By: Al MCFARLAND, On: 30-Oct-[address] Comments: good effort and curve- some small airway decrease Radiology - Chest- PA and LatBy: On: 30-Oct-2007 Intent Maylin Melendez DO DXA, BONE DENSITY, AXIAL SKELETON On: 24-Jul-2007 Intent (58353)By: Maylin Melendez DO Comments: postmenopausal without estrogen MAMMOGRAM, SCREENING, BOTH BREASTS On: 24-Jul-2007 Intent (23448)By: Maylin Melendez DO Radiology - Knee - Right - Weight On: 15-Jun-2007 Intent BearingBy: Maylin Melendez DO Comments: call results CT - ChestBy: Maylin Melendez DO On: 03-Apr-[address] - ChestBy: Maylin Melendez DO On: 15-Aug-2006 Intent Spirometry ([id number])By: Al MCFARLAND, On: 15-Aug-2006 Intent Maylin A Comments: good effort and curve- mild obstruction EKG ([id number])By: Natalya Kohli On: 15-Aug-2006 Intent Comments: ekg showed normal sinus rhythym, normal axis, no acute st/t wave changes Radiology - ChestBy: LEE OJEDA, On: 25-Jun-2006 Intent PAMELA Comments: Esme Solu- Medrol Injection, 125mg On: 25-Jun-2006 Intent ([id number])By: PAMELA HOWARD CNP Pulse Oximetry ([id number])By: LEE On: 25-Jun-2006 Intent PAMELA OJEDA Comments: pt tolerated well. ins waiver signed Aerosol Treatment ([id number])By: LEE On: 25-Jun-2006 Intent PAMELA OJEDA Comments: ins wwaiver signed, pt tolerated well Spirometry ([id number])By: Al MCFARLAND, On: 14-May-2006 Intent Maylin Sherman Comments: good effort and curve-mild obstruction ADMINISTRATION OF PNEUMOCOCCAL On: 11-Feb-2006 Intent VACCINE (G0009)By: ULYSSES Quiñones PNEUM VAC ADLT/IMUMNOSPR, SBC/INTRM On: 11-Feb-2006 Intent ([id number])By: ULYSSES Quiñones Bio Z ([id number])By: Maylin Melendez DO On: 11-Feb-2006 Intent Comments: bp was 132/65- cardiac output, svr and thoracic fluid content is normal- will hold on med changes PNEUM VAC ADLT/IMUMNOSPR, SBC/INTRM On: 11-Feb-2006 Intent ([id number])By: Maylin Melendez DO ADMINISTRATION OF PNEUMOCOCCAL On: 11-Feb-2006 Intent VACCINE (G0009)By: Maylin Melendez DO MAMMOGRAM, SCREENING, BOTH BREASTS On: 16-Oct-2005 Intent ([id number])By: Maylin Melendez DO Planned Medications INJECTION, METHYLPREDNISOLONE SODIUM SUCCINATE, UP TO 125 MG Ordered: 06-Jan-2018 Pending Ciesa RUSTY, Carlotta INJECTION, METHYLPREDNISOLONE SODIUM SUCCINATE, UP TO 125 MG Ordered: 21-Jun-2013 Pending Ciesa SUPERVISOR HOT DIP TINNING, Carlotta INJECTION, METHYLPREDNISOLONE SODIUM SUCCINATE, UP TO 125 MG Ordered: 31-Jan-2014 Pending Ciesa SUPERVISOR HOT DIP TINNING, Carlotta INJECTION, METHYLPREDNISOLONE SODIUM SUCCINATE, UP TO 125 MG Ordered: 17-Feb-2013 Pending Nia Uriostegui DO, DO, Kathleen INJECTION, METHYLPREDNISOLONE SODIUM SUCCINATE, UP TO 125 MG Ordered: 24-Aug-2010 Pending Ciesa SUPERVISOR HOT DIP TINNING, Carlotta INJECTION, METHYLPREDNISOLONE SODIUM SUCCINATE, UP TO 125 MG Ordered: 22-Feb-2014 Pending Fast DO Maylin A INJECTION, METHYLPREDNISOLONE SODIUM SUCCINATE, UP TO 125 MG Ordered: 27-Feb-2016 Pending Balbir Cramer MD INJECTION, METHYLPREDNISOLONE SODIUM SUCCINATE, UP TO 125 MG Ordered: 16-Jan-2016 Pending Balbir Cramer MD Vitamin B-12 1000 MCG/ML Injection Solution Ordered: 11-Apr-2014 Pending Kaci Gomez LPN Vitamin B-12 1000 MCG/ML Injection Solution Ordered: 26-May-2014 Pending Darshan Adalgisa Vitamin B-12 1000 MCG/ML Injection Solution Ordered: 01-Sep-2014 Pending Darshan, Adalgisa Vitamin B-12 1000 MCG/ML Injection Solution [...] Solution Ordered: 24-Apr-2016 Pending Moody DO, Nia Moody DO, Nia Vitamin B-12 1000 MCG/ML Injection Solution Ordered: 08-Aug-2016 Pending Moody DO, Nia Moody DO, Nia Vitamin B-12 1000 MCG/ML Injection Solution Ordered: 04-Nov-2016 Pending Moody DO, Nia Moody DO, Nia Vitamin B-12 1000 MCG/ML Injection Solution Ordered: 29-Nov-2016 Pending Moody DO, Nia Moody DO, Nia Vitamin B-12 1000 MCG/ML Injection Solution Ordered: 12-Feb-2017 Pending Moody DO, Nia Moody DO, Nia [...] MCG/ML Injection Solution Ordered: 16-Jan-2010 Pending Long OPERATORS TEACHER, Carol L Vitamin B-12 1000 MCG/ML Injection Solution Ordered: 04-Apr-2010 Pending Hluszti OPERATORS TEACHER, Carol Vitamin B-12 1000 MCG/ML Injection Solution Ordered: 11-Jul-2010 Pending Hluszti OPERATORS TEACHER, Carol Vitamin B-12 1000 MCG/ML Injection Solution Ordered: 21-Nov-2010 Pending Long OPERATORS TEACHER, Carol L Vitamin B-12 1000 MCG/ML Injection Solution Ordered: 14-Jan-2011 Pending Seun Natalya Vitamin B-12 1000 MCG/ML Injection Solution Ordered: 15-Feb-2011 Pending Long OPERATORS TEACHER, Carol L Vitamin B-12 1000 MCG/ML Injection Solution Ordered: 18-Mar-2011 Pending Hluszti OPERATORS TEACHER, Carol Vitamin B-12 1000 MCG/ML Injection Solution Ordered: 16-Apr-2011 Pending Mast Ericka TELLEZ Vitamin B-12 1000 MCG/ML Injection Solution Ordered: 23-May-2011 Pending Ericka Thao RN Vitamin B-12 1000 MCG/ML Injection Solution Ordered: 22-Jul-2011 Pending Hluszti OPERATORS TEACHER, Carol Vitamin B-12 1000 MCG/ML Injection Solution Ordered: 17-Sep-2011 Pending Seun Natalya Vitamin B-12 1000 MCG/ML Injection Solution Ordered: 29-Oct-2011 Pending Seun Natalya Vitamin B-12 1000 MCG/ML Injection Solution Ordered: 31-Dec-2011 Pending Fast DO, Maylin A Vitamin B-12 1000 MCG/ML Injection Solution Ordered: 13-Apr-2012 Pending Ramona Vásquez Vitamin B-12 1000 MCG/ML Injection Solution Ordered: 15-Jun-2012 Pending Manchak, Tracy Vitamin B-12 1000 MCG/ML Injection Solution Ordered: 31-Aug-2012 Pending Fast DO, Maylin A Vitamin B-12 1000 MCG/ML Injection Solution Ordered: 19-Oct-2012 Pending Amandak, Tracy Vitamin B-12 1000 MCG/ML Injection Solution [...] Anemia : Patient Instructions Indication: Anemia Encounters Office Visit On: 06-Jan-2018 11:12 Encounter Reason: Cough - Symptoms include cough and chills. Cough onset was 2 week(s) ago. Associated symptoms include mouth breathing. Note for Cough: Has been on doxycycline but no relief of cough, still bringing up End: 06-Jan-2018 12:15 mucous. 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 Seeing [facility] for this.Encounter Diagnosis: BMI 35.0-35.9,adult, Nonsmoker, Cough [...] Reason for ER visit: note: (afib in [facility] hosp from sat till wed). The [...] The End: 29-Nov-2016 15:30 n again on next for heart cath. He could not go [...] well. Patient has been compliant with instructions. Dino End: 04-Apr-2015 23:22 t medication use: no [...] diarrhea with ibs so going to see [facility] for new med - had neuro apptok- [...] willing to try altenrative but we disussed geetoza wants to stay in same class- has [...] 10 pounds and is cutting back plus hasnt felt great- she asked jennifer about nodules- [...] SOB. Had a stress test with my interactive media director and everything came back normal.), has decreased [...] weatching diet we talked about kyler catalan production operations manager she doesnt want to - we talked about diabetes disease progression- she notices swelling better if moving around more - hasnt been back to [facility] so think should do that [...] for a month- started when drove [place] - alot of walkin g and hiking- [...] had an MRI with doc up in [place] and was told that she had a [...] than was - hasnt done b12 since june will give shot start sublingual- she needs [...] patient does not have durable power of corporate attorney. The patient has noticed nothing from the geriatic depression scale. Other providers contributing to the patient's care are interactive media director, gastrologist an d other: (neurologist). 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 The patient feels well with no complaints [...] so backed off on drugs - overall feelkylie raygoza daily- her bowels are ok now- [...] first time happened while family there at [place] while family eating dinner - other time happened when her friend was talking about his open heart surgery - feels like may be panic or anxiety- she was at interactive media director a few mos ago and he had [...] Patient has been compliant with instructions. Current me End: 01-Nov-2007 22:32 dication use: no side [...] never got pneumovax lastt year- did teresa lb janae vaccine- discussed needs follow up mammo - [...] 16-Oct-2005 10:11 r Annual Exam - Female: susiestill hasovariesEncounter Diagnosis: Hypertension (401.0), well female - pap pelvic and bimanual performed [facility] Historical Summary On: 06-Sep-2005 6:20 [facility] End: 06-Sep-2005 6:51 Payers Medicareral Carrier BenefitCignaComfort sherman guarantor
--- OUTSIDE RECORDS SUMMARY | 2018-02-18 04:15 | XMS RPT_ITS | Continuity of Care Document ---
:1940 Author Organization [facility] Address [address] [place] [address] Phone Care Team Providers Name Role Phone Nia Uriostegui DO Unavailable Je Rodriguez Unavailable Dr. Christopher Alfonso Unavailable Mariely Monreal Unavailable KASIA Lopez Unavailable Unavailable Qing Manuel Unavailable Unavailable Long Carol PEDROZA Unavailable Unavailable Mt OJEDA Carlotta Unavailable Unavailable Unavailable Problems Name Dates Details [...] after antibiotic completed, call us. Status: Active Candidiasis, unspecified (B37.9, 112.9) Status: [...] to BID.Does not take pravachol becaue of cramprecheck lipid and cmp in 2 monthextensively counselled [...] (Z86.010, V12.72) Comments: Colonoscopy 06/09/12, 5 years, [id number]- adenoma- repeat in 5 years Status: Active [...] meninges (D42.9, 237.6) Comments: Dr Rivas in [place], 09/25, does MRI every year , not [...] DO, DO, Kathleen Start : 28-Apr-2017 Active Doxycycline Hyclate 100 MG Oral Capsule 1 (one) Capsule bid for 7 days Quantity: 14 {Capsule} Refills: 0 Ordered:30-Dec-2017 Sherrie Amor CNP Start : 30-Dec-2017 Active Easy Touch Test In Vitro Strip [...] DO, DO, Kathleen Start : 12-Feb-2017 Active Levemir FlexTouch 100 UNIT/ML Subcutaneous Solution [...] Lopez LPN Start : 31-Jul-2016 Active Pen [place] 5/16 31G X 8 MM Miscellaneous 1 [...] days Quantity: 3 {Box} Refills: 3 Ordered:30-Dec-2017 Ciesa RUSTY Carlotta Start : 30-Dec-2017 Active Tessalon Perles 100 MG Oral Capsule 1 (one) Capsule two times daily, as needed for 10 days Quantity: 30 {Capsule} Refills: 0 Ordered:30-Dec-2017 Ciesa RUSTY Carlotta Start : 30-Dec-2017 Active Comments:Medication taken as [...] Carol Reina LPN Start : 05-Jun-2009 Inactive Ferrous Sulfate 325 (65 Fe) MG [...] bid for 0 days Refills: 0 Ordered:07-Nov-2016 Ssuie Lopez LPN Start : 31-Jul-2016 End : 07-Nov-2016 Inactive KETOROLAC TROMETHAMINE, 0.4% (Ophthalmic Solution) uad after eye surgery (0.4 %) Inactive LANSOPRAZOLE, 30MG (Oral Capsule Delayed Release) 1 cap qd (30 MG) Inactive Levaquin 500 MG Oral Tablet 1 (one) Tablet Tablet daily for 10 days Quantity: 10 {Tablet} Refills: 0 Ordered:27-Feb-2016 Balbir Cramer MD Start : 27-Feb-2016 End : 08-Mar-2016 Inactive LEVAQUIN, 500MG (Oral Tablet) 1 (one) [...] for 0 days Refills: 0 Ordered:27-Feb-2016 Long FINANCIAL LEGAL ASSISTANT, Carol L End : 27-Feb-2016 Inactive NASONEX, 50MCG/ACT (Nasal Suspension) 1-2 squirts Suspension daily for 0 days Quantity: 1 {Unspecified} Refills: 0 Ordered:14-Jan-2014 ULYSSES Quiñones Start : 05-May-2013 End : 14-Jan-2014 Inactive Potassium Chloride ER 20 MEQ Oral Tablet Extended Release 1 (one) Tablet ER Tablet ER daily for 0 days Quantity: 60 {Tablet} Refills: 0 Ordered:27-Feb-2016 Long FINANCIAL LEGAL ASSISTANT, Carol L Start : 29-Jun-2014 End : 27-Feb-2016 Inactive [...] End : 07-Nov-2016 Inactive VITAMIN D (ERGOCALCIFEROL), 25031TSYY (Oral Capsule) 1 cap once a week (22496 UNIT) Inactive Vitamin D3 68319 UNIT Oral Tablet 1 (one) Tablet weekly [...] Quantity: 180 {Tablet} Refills: 3 Ordered:29-Nov-2016 Moody MCFARLANDKaren DO, Kathleen Start : 29-Nov-2016 End : [...] Quantity: 90 {Tablet} Refills: 3 Ordered:17-Apr-2012 Maylin Melendez DO Start : 17-Apr-2012 End : 17-Apr-2012 Discontinued ERGOCALCIFEROL, 45769WRCJ (Oral Capsule) 1 (one) Capsule q week [...] days Quantity: 30 {Tablet} Refills: 0 Ordered:21-Oct-2014 aMylin Melendez DO Start : 21-Oct-2014 End : [...] days Quantity: 90 {Tablet_ER_24HR} Refills: 3 Ordered:28-May-2017 OmariTristenie Start : 29-Nov-2016 End : 28-May-2017 Discontinued MIRALAX (Oral Packet) 1 (one) Packet take 1 pkt with 6-8 oz water or juice daily for 0 days Quantity: 10 {Packet} Refills: 0 Ordered:17-Sep-2011 Natalya Kohli Start : 17-Sep-2011 End : 17-Sep-2011 Discontinued NEURONTIN, 300MG (Oral Capsule) 1 (one) Capsule two times daily for 360 days Refills: 0 Ordered:17-Jan-2014 Sherrie Amor CNP Start : 17-Jan-2014 End : 17-Jan-2014 Discontinued [...] Quantity: 200 {Strip} Refills: 3 Ordered:18-Dec-2012 Natalya Kolhi Start : 20-Apr-2010 End : 23-Dec-2014 Discontinued Comments:This order discontinued per [employer]. ONETOUCH ULTRA BLUE (In Vitro Strip) 1 (one) Strip UAD for 0 days Quantity: 100 {Strip} Refills: 3 Ordered:23-Dec-2014 Natalya Kohli Start : 23-Dec-2014 End : 23-Dec-2014 Discontinued ONGLYZA, 5MG (Oral Tablet) 1 Tablet qd for 90 days Quantity: 90 {Tablet} Refills: 3 Ordered:17-Jan-2012 Al Maylin MCFARLAND Start : 17-Jan-2012 End : 17-Jan-2012 Discontinued TOPROL XL, 100MG (Oral Tablet Extended Release 24 Hour) 1 tab Tablet ER 24HR qd for 0 days Quantity: 90 {Tablet_ER_24HR} Refills: 3 Ordered:11-Feb-2006 СергейMonik Start : 11-Feb-2006 End : 03-Apr-2007 Discontinued Comments:gets generic TRICOR, 145MG (Oral Tablet) 1 tab Tablet qd for 0 days Quantity: 90 {Tablet} Refills: 3 Ordered:14-May-2011 Natalya Kohli Start : 14-May-2011 End : 14-May-2011 Discontinued TRILIPIX, 135MG (Oral Capsule Delayed Release) [address] qd for 0 days Quantity: 30 {Capsule} Refills: 3 Ordered:22-May-2015 Al Maylin MCFARLAND Start : 22-May-2015 End : 22-May-2015 Discontinued Victoza 18 MG/3ML Subcutaneous Solution Pen-injector tad Soln Pen-inj qd for 0 days Quantity: 1 {Box} Refills: 0 Ordered:29-Nov-2016 Karen Uriostegui DO, DO, Kathleen Start : 29-Nov-2016 End : 29-Nov-2016 Discontinued Comments:0.6 sc qd for one week then1.2 sc qd for one week then 1.8 sc qdpt will switch to her tradjenta VITAMIN D (ERGOCALCIFEROL), 73372FAEZ (Oral Capsule) 1 Capsule twice a week [...] Visit Report Result: Comments: See Note; NOTES: [facility] [address] [place] [address]. [address] [place] [address] OFFICE VISIT Date of Service: 12/19/17 MR#: [id number] Acct: [id number] Name: COMFORT OLSON Rep #: [id number] : 1940 Provider: Je Ceron MD Age/Sex: 77/F Location: [facility] Status: Signed Intake Intake Visit Reasons: F/U [...] PO BID 08/24/17 [History Confirmed 12/12/17] Methscopolamine [place] 5 mg PO BID 08/24/17 [History Confirmed [...] f ibrillation (Chronic) Atherosclerotic heart disease of [place] coronary artery without angina pectoris (Chronic) HLD [...] as an additional AV fistula at the [facility] site. On December 12, [address] [facility] I performed a ultrasound-guided thrombin injection [...] and Dr. Jonel Ceron M.D., F.A.C.S. Coding [facility] Code Off vis,est,level 2 Diagnoses Pseudoaneurysm following procedure I97.89; I72.9 Injury of right femoral artery, subsequent encounter S75.001D Encounter type: subsequent encounter Laterali ty: right 12/19/17 9800 <Electronically signed by Je Ceron MD> Date Je Ceron MD Cosigner Signature: Date _ (if applicable) CC: Jonel Rashid MD; Nia Uriostegui DO 15-Dec-2017 Arterial Duplex US, Limited Result: Comments: See Note; NOTES: [facility] Cardiovascular Services [address] [place] [address] Art Duplex US Unilat Lower Ext 12/15/17 1350 MR#: [id number] Acct: [id number] Name: COMFORT OLSON Rep #: [id number] : 1940 77 From: Je Ceron MD Attending Dr: JAYA GARZA Status: REG CLI Ordering Dr: Je Ceron MD Date: 12/15/17 [facility] Sex: F C Admitted: Antoinette mcwilliams For Study: F/U PSA thrombin injection Right Velocities 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 - .72 x .74 cm with [...] Dictated: 12/15/17 1350 Date Transcribed: 12/15/17 1702 Electronic Pagination System Operator: Signed 12-Dec-2017 Arterial Duplex US, Limited Result: Comments: See Note; NOTES: [facility] Cardiovascular Services [address] [place] [address] Art Duplex US Unilat Lower Ext 12/12/17 1304 MR#: [id number] Acct: [id number] Name: COMFORT OLSON Rep #: [id number] : 1940 77 From: Je Ceron MD Attending Dr: Je Ceron MD Status: REG CLI Ordering Dr: Je Ceron MD Date: 12/12/17 Location: [facility] Sex: F C Admitted: Reason For Study: RT Groin pseudoanerysm thrombin injection Right Velocities Rt groin pseudoaneurysm successfully thrombosed s/p thrombin injection. Normal color flow and doppler signal MARINE EQUIPMENT SALES ENGINEER and FV. P rocedure Exam performed in department. Interpretation Summary Successful thrombosis right femoral pseudoaneurysm __ Ordering Physician: Je Ceron Performed By: Sanaz Sheth RVT 12/12/17 1404 Date Je Ceron MD CC: Nia Uriostegui DO; Je Ceron MD Date Dictated: 12/12/17 1304 Date Transcribed: 12/12/17 1404 Electronic Pagination System Operator: Signed 12-Dec-2017 Operative Report Result: Comments: See Note; NOTES: [facility] Medical Records Department [address] [place] [address] Operative Report 12/12/17 1359 MR#: [id number] Acct: [id number] Name: COMFORT OLSON Rep #: [id number] : 1940 77 From: Je Ceron MD [...] M.D., F.A.C.S. Type of Anesthesia:: Local 12/12/17 1403 <Electronically signed by Je Ceron MD> Baldo e Je Ceron MD CC: Nia Uriostegui DO; Je Ceron MD Signed 12-Dec-2017 Surgery Visit Report Result: Comments: See Note; NOTES: [facility] [address] [place] [address] OFFICE VISIT Date of Service: 12/12/17 MR#: [id number] Acct: [id number] Name: COMFORT OLSON Rep #: [id number] : 1940 Provider: Je Ceron MD Age/Sex: 77/F Location: [facility] Status: Signed Intake Intake Visit Reasons: Pseudoaneurysm [...] PO BID 08/24/17 [History Confirmed 12/12/17] Methscopolamine [place] 5 mg PO BID 08/24/17 [History Confirmed [...] fibrillation (Chronic) Atherosclerotic heart dis ease of [place] coronary artery without angina pectoris (Chronic) HLD [...] cardiac ablation for atrial fibrillation performed at [facility] per Dr. Greene. Patient is about 10 [...] Visit Report Result: Comments: See Note; NOTES: [facility] Services [address] [place] [address] OFFICE VISIT Date of Service: 12/11/17 MR#: [id number] Acct: [id number] Patient: COMFORT OLSON Rep #: [id number] : 1940 Provider: Jonel Rashid MD Age/Sex: 77/F Location: [facility] Status: Signed Intake Intake Visit Reasons: PER [...] PO BID 08/24/17 [History Confirmed 10/31/17] Methscopolamine [place] 5 mg PO BID 08/24/17 [History Confirmed [...] -MATTIE Extrem Result: Comments: See Note; NOTES: [facility] Cardiovascular Services [address] [place] [address] Art Duplex US Bilat Lower Ext 12/11/17 1408 MR#: [id number] Acct: [id number] Name: COMFORT OLSON Rep #: [id number] : 1940 77 From: Je Ceron MD Attending Dr: Annemarie Parsons Status: REG CLI Ordering Dr: Jonel Rashid MD Date: 12/11/17 Location[facility] Sex: F C Admitted: Reason For Study: Rt groin pain/ecchymosis - Right Velocities Left Velocities 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 - 1.2 x 1.2 cm with a velocity of 159.0 LT MARINE EQUIPMENT SALES ENGINEER - .88 x .83 cm with [...] Date Dictated: 12/11/17 1408 Date Transcribed: 12/11/171818 Electronic Pagination System Operator: Signed 04-Nov-2017 Operative Report Result: Comments: See Note; NOTES: [facility] Medical Records Department [address] [place] [address] Operative Report 11/03/17 1228 MR#: [id number] Acct: [id number] Name: COMFORT OLSON Rep #: [id number] : 1940 76 From: Patrick Ellsworth MD PCP: Nia Uriostegui DO Status: [facility] Y Location: [facility] Problem List (1) New onset atrial flutter Status: Acute (2) Atherosclerotic heart disease of [place] coronary artery without angina pectoris Status: Chronic Qualifiers: [place] vs. transplanted heart: [place] heart Qualified Code(s): I25.10 - Atherosclerotic heart disease of [place] nitin nary artery without angina pectoris Comment: 08/06/2004 CABG x2 VILLAGRAN side to side to second Diagonal and end to side to Anterior Descending artery in Sequential fashion. [facility]: 08/01/2004; 10/15/2011 (3) Cardiomyopathy in diseases classified [...] is a 76-year-old female who presented to [facility] for an elective outpat ient cardioversion [...] Visit 9xxxx: Other Procedure See Report - 72030 11/04/17 0525 <Electronically signed by Patrick Ellsworth MD> Date Patrick Ellsworth MD CC: Patrick Ellsworth MD; Joenl Rashid MD; Nia Uriostegui DO Signed 03-Nov-2017 Operative Report Result: Comments: See Note; NOTES: [facility] Medical Records Department [address] [place] [address] Operative Report 11/03/17 1214 MR#: [id number] Acct: [id number] Name: COMFORT OLSON Rep #: [id number] : 1940 76 From: Jonel Rashid MD PCP: Nia Uriostegui DO Status: REG SDC Y Location: [facility] Operative Report Date of Procedure: [...] Rashid MD CC: Jonel Rashid MD; Nia Thakkaron Signed 08-Oct-2017 Cardiology Visit Report Result: Comments: See Note; NOTES: [facility] [address] [place] [address] OFFICE VISIT Date of Service: 10/08/17 MR#: [id number] Acct: [id number] Name: COMFORT OLSON Re p #: [id number] : 1940 Provider: Jonel Rashid MD Age/Sex: 76/F Location: [facility] Status: Signed HPI [facility] Chief Complaint: Follow up Details: COMFORT [...] 70 Intake Visit Reasons: ER 8-20 per FINANCIAL PLANNING ADVISOR Allergies No Known Allergies Allergy (Verified 10/08/17 [...] PO BID 08/24/17 [History Confirmed 10/05/17] Methscopolamine [place] 5 mg P O BID 08/24/17 [History [...] BID #180 tab 10/08/17 [Rx Confirmed 10/08/17] [facility] Medical History Left bundle branch block (Chronic) New onset atrial flutter (Acute 09/29/17) 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 Arrangements were made at the [facility] for the above to be considered. [...] bundle branch block. 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 (postmaster) Coding Level of Care Code Off vis,est,level [...] Lead Electrocardiogram Result: Comments: See Note; NOTES: [facility] Cardiovascular Services [address] [place] [address] 12 Lead EKG 10/05/17 0149 MR#: [id number] Acct: [id number] Name: COMFORT OLSON Rep # : [id number] : 1940 76 From: Jonel Rashid MD [...] ECG Confirmed by GAY ROSAS, JONEL ([id number]), legal editor AMIRA CASTRO ([id number]) on 10/07/2017 2:45:19 PM Referred By: Jonel Rashid Confirmed By:JONEL RASHID MD 10/07/17 1445 Date _ Jonel Rashid MD CC: Emery Allen MD; Nia Uriostegui Signed 07-Oct-2017 12 Lead Electrocardiogram Result: Comments: See Note; NOTES: [facility] Cardiovascular Services [address] [place] [address] 12 Lead EKG 10/05/17 0333 MR#: [id number] Acct: [id number] Name: COMFORT OLSON Rep # : [id number] : 1940 76 From: Jonel Rashid MD [...] ECG Confirmed by JONEL RASHID MD ([id number]), legal editor AMIRA CASTRO ([id number]) on 10/07/2017 2:42:56 PM Referred By: Kathleen Rashid Confirmed By:JONEL RASHID MD 10/07/17 1442 Date Jonel Rashid MD CC: Emery Allen MD; Nia Uriostegui DO Signed 05-Oct-2017 Discharge Instruction Result: Comments: See Note; NOTES: [facility] Medical Records Department [address] [place] [address] Discharge Instruction 10/05/17 0440 MR#: [id number] Acct: [id number] Name: Liyah OLSON Lane Rep #: [id number] : 1940 76 From: Emery Allen MD [...] Primary Care Provi latrell. Call [facility] ([phone]) or report to the closest Emergency Room. Call 911 if necessary. 10/05/17 0528 <Electronically signed by Emery Allen MD> Date ____ Emery Allen MD Cosigner Signature (If Indicated): Date CC: Nia Uriostegui DO 05-Oct-2017 Emergency Department Summary Result: Comments: See Note; NOTES: [facility] Medical Records Department [address] [facility] [place] [address] Emergency Department Summary 10/05/17 0435 MR#: [id number] Acct: [id number] Name: COMFORT OLSON Rep #: [id number] : 1940 76 From: Emery Allen MD [...] flutter This not e was generated with [employer] dictation software. It may contain incorrect words, [...] your Primary Care Provider. Call [facility] ([phone]) or report to the closest Emergency Room. Call 911 if necessary. 10/05/17 0528 &#60 ;Electronically signed by Emery Allen MD> Date Emery Allen MD Cosigner Signature (If Indicated): Date CC: Nia Uriostegui DO 05-Oct-2017 Chest 1 View (Portable) Result: Comments: See Note; NOTES: [facility] Imaging Services [address] [place] [address] Chest 1 View (Portable) MR#: [id number] Acct: [id number] Name: COMFORT OLSON Rep #: [id number] : 1940 F 76 From: Chris Dwyer MD PCP: Nia Uriostegui DO Status: REG ER Study: Chest 1 View (Portable) Date of Exam: 10/05/17 Exam# [id number] Ordering Dr: Emery Allen MD STUDY: X-R [...] of the upper abdomen. ORDER # : [id number] RAD/Chest 1 View (Portable) IMPRESSION: Mild cardiomegaly. Minimal persistent left basilar atelectasis. No evidence for acute cardiopulmonary pathology. Electronically Signed: Chris Dwyer MD at 2:42 EDT , Service support , CC: Emery Allen MD; Nia Uriostegui DO Electronic Pagination System Operator: Signed 03-Oct-2017 12 Lead Electrocardiogram Result: Comments: See Note; NOTES: [facility] Cardiovascular Services [address] [facility] [place] [address] 12 Lead EKG 10/02/17 1353 MR#: [id number] Acct: [id number] Name: COMFORT OLSON Rep # : [id number] : 1940 76 From: Jonel Rashid MD Attending Dr: Jonel Rashid MD Status: REG CLI Ordering Dr: Richard Lombardo Date: 10/02/17 Location[facility] Sex: F C [...] ECG Confirmed by JONEL RASHID MD ([id number]), legal editor AMIRA CASTRO ([id number]) on 10/03/2017 1:43:28 PM Referred By: Jonel Rashid Confirmed By:USMAN RASHID MD 10/03/17 1343 Date Jonel Rashid MD CC: JOSSELYN Lombardo; Jonel Rashid MD; Nia Uriostegui DO Signed 02-Oct-2017 Echo, Complete w/ Contrast Result: Comments: See Note; NOTES: [facility] Cardiovascular Services [address] [facility] [place] [address] Echo Complete W/ Contrast 10/02/17 1250 MR#: [id number] Acct: [id number] Name: DANA JaffeCOMFORT Rep #: [id number] : 1940 76 From: Jonel Rashid MD [...] Rashid erformed By: Rachel Oconnor, NEREYDA, RVT 10/02/171742 Date Jonel Rashid MD CC: Jonel stubbs MD; Nia Uriostegui DO Date Dictated: 10/02/17 1250 Date Transcribed: 10/02/171742 Electronic Pagination System Operator: Signed 02-Oct-2017 12 Lead Electrocardiogram Result: Comments: See Note; NOTES: [facility] Cardiovascular Services [address] [place] [address] 12 Lead EKG 09/29/17 1035 MR#: [id number] Acct: [id number] Name: COMFORT OLSON Rep # : [id number] : 1940 76 From: Antonio Tovar MD [...] ECG Confirmed by ZARA ROSAS, ANTONIO ([id number]), legal editor AMIRA CASTRO (56) on 10/02/2017 1:30:21 PM Refer red By: BOZENA Confirmed By:ANTONIO TOVAR MD 10/02/17 1330 Date Antonio Tovar MD CC: Nia Uriostegui DO; Jignesh Tello MD Signed 02-Oct-2017 12 Lead Electrocardiogram Result: Comments: See Note; NOTES: [facility] Cardiovascular Services [address] [place] [address] 12 Lead EKG 09/29/17 1020 MR#: [id number] Acct: [id number] Name: COMFORT OLSON Rep # : [id number] : 1940 76 From: Antonio Tovar MD [...] Abnormal ECG Confirmed by ANTONIO TOVAR MD ([id number]), legal editor AMIRA CASTRO ([id number]) on 10/02/2017 1:27:54 PM Referred By: BOZENA Confirmed By:ANTONIO TOVAR MD 10/02/171326 Date Antonio Tovar MD CC: Nia Uriostegui DO; Jignesh Tello MD Signed 02-Oct-2017 12 Lead Electrocardiogram Result: Comments: See Note; NOTES: [facility] Cardiovascular Services [address] [place] [address] 12 Lead EKG 09/29/17 0905 MR#: [id number] Acct: [id number] Name: COMFORT OLSON Rep # : [id number] : 1940 76 From: Antonio Tovar MD [...] Abnormal ECG Confirmed by ANTONIO TOVAR MD ([id number]), legal editor AMIRA CASTRO ([id number]) on 10/02/2017 1:27:13 PM Referred By: BOZENA Confirme d By:ANTONIO TOVAR MD 10/02/171326 Date Antonio Tovar MD CC: Nia Uriostegui DO; Jignesh Tello MD Signed 02-Oct-2017 12 Lead Electrocardiogram Result: Comments: See Note; NOTES: [facility] Cardiovascular Services [address] [place] [address] 12 Lead EKG 09/29/17925 MR#: [id number] Acct: [id number] Name: COMFORT OLSON Rep # : [id number] : 1940 76 From: nAtonio Tovar MD Attending Dr: Status: DEP ER [...] ECG Confirmed by ZARA ROSAS, ANTONIO ([id number]), legal editor AMIRA CASTRO (56) on 10/02/2017 1:26:27 PM Referr ed By: BOZENA Confirmed By:ANTONIO TOVAR MD 10/02/17 1326 Date Antonio Tovar MD CC: Nia Uriostegui DO; Jignesh Tello MD Signed 29-Sep-2017 Emergency Department Summary Result: Comments: See Note; NOTES: [facility] Medical Records Department [address] [place] [address] Emergency Department Summary 09/29/17911 MR#: [id number] Acct: [id number] Name: COMFORT OLSON Rep #: [id number] : 1940 76 From: Jignesh Tello MD [...] Sinus bradycardia. This note was generated with [employer] dictation software. It may contain incorrect words, [...] your Primary Care Provider. Call [facility] ([phone]) or report to the closest Emergency Room. Call 911 if necessary. 09/29/17 1708 <Electronically si gned by Jignesh Tello MD> Date Jignesh Tello MD Cosigner Signature (If Indicated): Date CC: Nia Uriostegui DO 29-Sep-2017 Chest 1 View (Portable) Result: Comments: See Note; NOTES: [facility] Imaging Services [address] [facility] [place] [address] Chest 1 View (Portable) MR#: [id number] Acct: [id number] Name: COMFORT OLSON Rep #: [id number] : 1940 F 76 From: John Babcock MD PCP: Nia Uriostegui DO Status: REG ER Study: Chest 1 View (Portable) Date of Exam: 09/29/17 Exam# [id number] Ordering Dr: Jignesh Tello MD STUDY: X-RAY [...] John Babcock MD at 9:55 EDT Tel [phone], Service support , CC: Nia Uriostegui DO; Jignesh Tello MD Electronic Pagination System Operator: Signed 25-Sep-2017 Cardiology Visit Report Result: Comments: See Note; NOTES: [facility] 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 Required: No Accompanied by: nonw Is patient [...] BID 08/24/17 [History Confirmed 09/25/17] Met hscopolamine [place] 5 mg PO BID 08/24/17 [History Confirmed [...] PO QDAY tab 09/25/17 [History Confirmed 09/25/17] [facility] Medical History Other secondary pulmonary hypertension (Chronic) Cardiomyopathy in diseases classified elsewhere (Chronic) Other cerebral infarction (Chronic) Paroxysmal atrial fibrillation (Chroni c) Atrial enlargement, 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 4. Atherosclerosis of [place] coronary artery of [place] heart without angina pectoris I25.10 08/06/2004 CA BG x2 VILLAGRAN side to side to second Diagonal and end to side to Anterior Descending artery in Sequential fashion. [facility]: 08/01/2004; 10/15/2011 Plan She does have a [...] Other Medications New: Follow Up 6 Months (postmaster) Coding Level of Care Code Off vis,est,level 4 Diagnoses Paroxysmal atrial fibrillation I48.0 Cardiomyopathy in diseases c lassified elsewhere I43 Essential hypertension I10 Hypertension type: essential hypertension Atherosclerosis of [place] coronary artery of [place] heart without angina pectoris I25.10 [place] vs. transplan joel heart: [place] heart Mixed hyperlipidemia E78.2 Hyperlipidemia type: mixed hyperlipidemia Coding Level of Care Code Off vis,est,level 4 Diagnoses Paroxysmal atrial fibrillation I48.0 Cardiomyopath y in diseases classified elsewhere I43 Essential hypertension I10 Hypertension type: essential hypertension Atherosclerosis of [place] coronary artery of [place] heart without angina pectoris I25.10 [place] vs. transplanted heart: [place] heart Mixed hyperlipidemia E78.2 Hyperlipidemia type: mixed hyperlipidemia 09/25/17 1029 <Electronically signed by Jonel Rashid MD> Date __ Jonel Villasenor Signature: Date (if applicable) CC: Nia Uriostegui DO 26-Aug-2017 12 Lead Electrocardiogram Result: Comments: See Note; NOTES: [facility] Cardiovascular Services [address] [address] 12 Lead EKG 08/24/17 1336 MR#: [id number] Acct: [id number] Name: COMFORT OLSON Rep # : [id number] : 1940 76 From: Jonel Rashid MD [...] ECG Confirmed by JONEL RASHID MD ([id number]), legal editor AMIRA CASTRO ([id number]) on 08/26/2017 1:37:24 PM Referred B y: YONI Confirmed By:JONEL RASHID MD 08/26/17 133 Date Jonel Rashid MD CC: Nia Uriostegui DO; Alexis Kemp MD Signed 26-Aug-2017 12 Lead Electrocardiogram Result: Comments: See Note; NOTES: [facility] Cardiovascular Services [address] [address] 12 Lead EKG 08/24/17 0956 MR#: [id number] Acct: [id number] Name: COMFORT OLSON Rep # : [id number] : 1940 76 From: Jonel Rashid MD [...] ECG Confirmed by JONEL RASHID MD ([id number]), legal editor AMIRA CASTRO ([id number]) on 08/26/2017 12:50:18 PM Referred By: YONI Confirmed By:JONEL RASHID MD 08/26/17 1250 Date Jonel Rashid MD CC: Nia Uriostegui DO; Alexis Kemp MD Signed 24-Aug-2017 Emergency Department Summary Result: Comments: See Note; NOTES: [facility] Medical Records Department [address] [place] [address] Emergency Department Summary 08/24/17 1336 MR#: [id number] Acct: [id number] Name: COMFORT OLSON Rep #: [id number] : 1940 76 From: Alexis Kemp MD [...] coronary disease This note was generated with [employer] dictation software. It may contain in correct [...] your Primary Care Provider. Call [facility] ([phone]) or report to the [facility] Emergency Room. Call 911 if necessary. 08/24/17 1340 <Electronically signed by Alexis Kemp MD> Date Alexis Kemp MD Cosigner Signatu re (If Indicated): Date CC: Jonel Rashid MD; Nia Uriostegui DO 24-Aug-2017 Chest PA and Lateral Result: Comments: See Note; NOTES: [facility] Imaging Services [address] [place] [address] Chest PA and Lateral MR#: [id number] Acct: [id number] Name: COMFORT OLSON Rep #: [id number] : 1940 F 76 From: Clyde Matute MD PCP: Nia Uriostegui DO Status: REG ER Study: Chest PA and Lateral Date of Exam: 08/24/17 Exam# [id number] Ordering Dr: Alexis Kemp MD STUDY: X-RAY [...] CC: Nia Uriostegui DO; Alexis Kemp MD Electronic Pagination System Operator: Signed 02-Jun-2017 12 Lead EKG performed by [facility] Result: Comments: See Note; NOTES: [facility] [address] [place] [address] 12 Lead EKG performed by [facility] 06/02/17 1121 MR#: [id number] Acct: [id number] Name: COMFORT OLSON Rep #: [id number] : 1940 76 From: Annemarie BLOOD Attending Dr: Annemarie Parsons Status: DEP AMB Ordering Dr: Annemarie Parsons Date: 06/02/17 Location: [facility] Sex: F C Admitted: BMS/12 Lead EKG performed by [facility] ECG Report Interpretation Sinus Rhythm -Intraventricular conduction defect and left axis -possible anterior fas cicular block consider ventricular hypertrophy. - Nonspecific T-abnormality. ABNORMAL Electronically signed on 06/04/2017 at 14:14 by Jonel Rashid 06/04/17 1415 Date Annemarie BLOOD CC: Nia Uriostegui DO Date Dictated: 06/02/171120 Date Transcribed: 06/02/171120 Electronic Pagination System Operator: BARBY Signed 29-May-2017 Cardiology Visit Report Result: Comments: See Note; NOTES: [facility] [place] [address] [facility] [address] [place] [address] OFFICE VISIT Date of Service: 05/26/17 MR#: [id number] Acct: [id number] Name: COMFORT OLSON p #: [id number] : 1940 Provider: Annemarie Parsons Age/Sex: 76/F Location: [facility] Status: Signed HPI HPI Details: COMFORT OLSON, [...] surgery in 2004. She had an VILLAGRAN lozt-km-apxq to second diagonal and to anterior descending [...] (BMI) 33.3 Intake Visit Reasons: per Susi Photoengraving Photographer Required: No Accompanied by: NONE Is patient [...] PO DAILY 11/11/16 [History Confirmed 05/26/17] Methscopolamine [place] 5 mg PO BID 11/11/16 [History Confirmed [...] enlargement, left (Chronic) Atherosclerotic heart disease of [place] coronary artery without angina pectoris (Chronic) HTN [...] week for an EKG. 2. Atherosclerosis of [place] coronary artery of [place] heart without angina pectoris I25.10 08/06/2004 CABG x2 VILLAGRAN side to side to second Diagonal and end to side to Anterior [place] cending artery in Sequential fashion. [facility]: 08/01/2004; 10/15/2011 Plan - JEREMI Mcpherson . [...] 1 Week (EKG) 05/26/17 (keep appt with FINANCIAL PLANNING ADVISOR) Coding Level of Care Code Off vis,est,level 4 Diagnos es Dyspnea on exertion R06.09 Atherosclerosis of [place] coronary artery of [place] heart without angina pectoris I25.10 [place] vs. transplanted heart: [place] heart Essential hypertension I10 Hypertension type: essential hypertension Mixed hyperlipidemia E78.2 Hyperlipidemia type: mixed hyperlipidemia Paroxysmal atrial fibrillation I48.0 Atrial fibrillation type: paroxysmal Coding Level of Care Code O ff vis,est,level 4 Diagnoses Dyspnea on exertion R06.09 Atherosclerosis of [place] coronary artery of [place] heart without angina pectoris I25.10 [place] vs. transplanted heart: [place] heart Essential hy pertension I10 Hypertension type: essential hypertension Mixed hyperlipidemia E78.2 Hyperlipidemia type: mixed hyperlipidemia Paroxysmal atrial fibrillation I48.0 Atrial fibrillation type: paroxysmal 05/28/17 1018 <Electronically signed by Annemarie BLOOD> Date Annemarie BLOOD 05/29/17 1417<Electronically si gned by Jonel Rashid MD> Cosigner Signature: Date (if applicable) Jonel Rashid MD CC: Nia Uriostegui DO 26-May-2017 12 Lead EKG performed by [facility] Result: Comments: See Note; NOTES: [facility] [address] [place] [address] 12 Lead EKG performed by [facility] 05/26/17 1521 MR#: [id number] Acct: [id number] Name: COMFORT OLSON Rep #: [id number] : 1940 76 From: Annemarie BLOOD Attending Dr: Annemarie Parsons Status: DEP AMB Ordering Dr: Annemarie Parsons Date: 05/26/17 Location: [facility] Sex: F C Admitted: BMS/12 Lead EKG performed by [facility] ECG Report Interpretation Marked sinus Bradycardia -Poor R-wave progression - nonspecific -consider old anterior infarct. -Nonspecific ST depression -Nondiagnostic. ABNORMAL Electronically signed on 05/27/2017 at 08:40 by Jonel Rashid 05/27/17 0841 Date Annemarie BLOOD CC: Nia Uriostegui DO Date Dictated: 05/26/17 1521 Date Transcribed: 05/26/171520 Electronic Pagination System Operator: BARBY Signed 16-May-2017 Office Visit Report Result: Comments: See Note; NOTES: [facility] Services [address] [place] [address] OFFICE VISIT Date of Service: 05/16/17 MR#: [id number] Acct: [id number] Patient: COMFORT OLSON Rep #: [id number] : 1940 Provider: Jonel Rashid MD Age/Sex: 76/F Location: [facility] Status: Signed Intake Intake Visit Reasons: EKG [...] SON Y 11/11/16 [History Confirmed 05/14/17] Methscopolamine [place] 5 mg PO BID 11/11/16 [History Confirmed [...] Cosigner Signature: Date (if applicable) CC: Sarkis Orozco 16-May-2017 12 Lead EKG performed by BMS Result: Comments: See Note; NOTES: [facility] [address] [place] [address] 12 Lead EKG performed by BMS 05/16/17 1044 MR#: [id number] Acct: [id number] Name: COMFORT OLSON Rep #: [id number] : 1940 76 From: Annemarie BLOOD Attending Dr: Gay ROSAS,Jonel Status: DEP AMB Ordering Dr: Annemarie Parsons Date: 05/16/17 Location: [facility] Sex: F C Adm itted: BMS/12 Lead EKG performed by BMS Sinus Bradycardia -Poor R-wave progression -may be secondary to pulmonary isease consider old anterior infarct. Rightward P/QRS axis and rota tion possible pulmonary disease. ABNORMAL 05/16/17 1650 <Electronically signed by Annemarie BLOOD> Date Annemarie BLOOD CC: Nia Uriostegui DO Date Dictated: 05/16/171043 Date Transcribed: 05/16/171043 Electronic Pagination System Operator: MMM Signed 16-May-2017 12 Lead EKG performed by BMS Result: Comments: See Note; NOTES: [facility] [address] [place] [address] 12 Lead EKG performed by BMS 05/16/17 1044 MR#: [id number] Acct: [id number] Name: COMFORT OLSON Rep #: [id number] : 1940 76 From: Annemarie BLOOD Attending Dr: Gay ROSAS,Jonel Status: DEP AMB Ordering Dr: Annemarie Parsons Date: 05/16/17 Location: [facility] Sex: F C Adm itted: BMS/12 Lead EKG performed by BMS ECG Report Interpretation Sinus Bradycardia -Poor R-wave progression -may be secondary to pulmonary disease conside r old anterior infarct. Rightward P/QRS axis and rotation -possible pulmonary disease. ABNORMAL Electronically signed on 05/17/2017 at 18:31 by Jonel Rashid 05/17/17 1834 Date Annemarie BLOOD CC: Nia Uriostegui DO Date Dictated: 05/16/17 104 Date Transcribed: 05/16/171043 Electronic Pagination System Operator: BARBY Signed 14-May-2017 Cardiology Visit Report Result: Comments: See Note; NOTES: [facility] [address] [place] [address]. [address] [place] [address] OFFICE VISIT Date of Service: 05/14/17 MR#: [id number] Acct: [id number] Name: COMFORT OLSON Re p #: [id number] : 1940 Provider: Annemarie Parsons Age/Sex: 76/F Location: [facility] Status: Signed HPI HPI Details: COMFORT OLSON, is a 76 F who presents to the office today for an urgent appointm ent for increased shortness of breath. Patient does have a hospital of coronary artery disease with bypass surgery in 2004. 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 Paroxysmal atrial fibrillation I48.0 Plan - JREEMI Fuller Patient does have significant bradycardia today. [...] for an EKG 2. Ath erosclerosis of [place] coronary artery of [place] heart without angina pectoris I25.10 08/06/2004 CABG x2 VILLAGRAN side to side to second Diagonal and end to side to Anterior Descending artery in Sequential fashion. [facility]: 08/01/2004; 10/15/2011 Plan - JEREMI Mcpherson Stable, [...] Diagnoses Paroxysmal atrial fibrillation I48.0 Atherosclerosis of [place] coronary artery of [place] heart without angina pectoris I25.10 [place] vs. transplanted heart: [place] heart Essential hy pertension I10 Hypertension type: essential hypertension Mixed hyperlipidemia E78.2 Hyperlipidemia type: mixed hyperlipidemia Coding Level of Care Code Off vis,est,level 4 Diagnoses Paroxysmal atrial fibrillation I48.0 Atherosclerosis of [place] coronary artery of [place] heart without angina pectoris I25.10 [place] vs. transplanted heart: [place] heart Essential hypertension I10 Hypertension type: ess ential hypertension Mixed hyperlipidemia E78.2 Hyperlipidemia type: mixed hyperlipidemia 05/14/17 1718 <Electronically signed by Annemarie BLOOD> Date Annemarie BLOOD 05/14/17 1732<Electronically signed by Jonel Rashid MD> Cosigner Signature: Date (if applicable) Jonel Rashid MD CC: Nia Uriostegui DO 14-May-2017 12 Lead EKG performed by BMS Result: Comments: See Note; NOTES: [address] [address] 12 Lead EKG performed by BMS 05/14/171103 MR#: [id number] Acct: [id number] Name: COMFORT OLSON Rep #: [id number] : 1940 76 From: Annemarie BLOOD Attending Dr: Annemarie Parsons Status: DEP AMB Ordering Dr: Annemarie Parsons Date: 05/14/17 Location: [facility] Sex: F C Admitted: BMS/12 Lead EKG performed by BMS Marked sinus Bradycardia -Intraventricular conduction defect -consider left entricular hypertrophy. -Lateral infarct -age undetermined. - -abnormality -Possible Inferior and lateral ischemia. ABNORMAL 05/15/17 1041 <Electronically signed by Annemarie BLOOD> Date M farhan BLOOD CC: Nia Uriostegui DO Date Dictated: 05/14/171103 Date Transcribed: 05/14/171103 Electronic Pagination System Operator: MMKasia Signed 14-May-2017 12 Lead EKG performed by BMS Result: Comments: See Note; NOTES: [address] [place] [address] 12 Lead EKG performed by [facility] 05/14/17 1104 MR#: [id number] Acct: [id number] Name: COMFORT OLSON Rep #: [id number] : 1940 76 From: Annemarie BLOOD Attending Dr: Annemarie Parsons Status: DEP AMB Ordering Dr: Annemarie Parsons Date: 05/14/17 Location: [facility] Sex: F C Admitted: [facility]/12 Lead EKG performed by [facility] ECG Report Interpretation Marked sinus Bradycardia -Intraventricular conduction defect -consider left ventricul ar hypertrophy. -Lateral infarct -age undetermined. - T-abnormality -Possible Inferior and lateral ischemia. ABNORMAL Electronically signed on 05/17/2017 at 18:31 by Jonel Rashid 05/17/17 1834 Date __ Annemarie BLOOD CC: Nia Uriostegui DO Date Dictated: 05/14/171103 Date Transcribed: 05/14/171103 Electronic Pagination System Operator: BARBY Signed 09-May-2017 Office Visit Report Result: Comments: See Note; NOTES: [facility] Services [address] [place] [address] OFFICE VISIT Date of Service: 05/09/17 MR#: [id number] Acct: [id number] Patient: COMFORT OLSON Rep #: [id number] : 1940 Provider: Standard Nurse, RN Age/Sex: 76/F Location: [facility] Status: Signed Intake Intake Visit Reasons: EKG 4 wk s/p per FINANCIAL PLANNING ADVISOR Allergies No Known Allergies Allergy (Verified 05/04 [...] PO DAILY 11/11/16 [History Confirmed 04/19/17] Methscopolamine [place] 5 mg PO BID 11/11/16 [History Confirmed [...] Seaman 09-May-2017 12 Lead EKG performed by BMS Result: Comments: See Note; NOTES: [facility] [address] [facility] [place] [address] 12 Lead EKG performed by BMS 05/09/171109 MR#: [id number] Acct: [id number] Name: COMFORT OLSON Rep #: [id number] : 1940 76 From: Jonel Rashid MD Attending Dr: Albert Kerr RN Status: DEP AMB Ordering Dr: Jonel Rashid MD Date: 05/09/17 Location: [facility] Sex: F C Admitted: BMS/12 Lead EKG performed by [facility] Sinus Rhythm -Nonspecific QRS widening and anterior fascicular block. -Poor -wave progression -nonspecific -consider old anterior infarct. -Nonspecific T d epression -Nondiagnostic. ABNORMAL 05/09/17 161 <Electronically signed by Jonel Rashid MD> Date Jonel Rashid MD CC: Nia Rice Date Dictated: 05/09/171109 Date Transcribed: 05/09/171109 Electronic Pagination System Operator: [place] Signed 09-May-2017 12 Lead EKG performed by BMS Result: Comments: See Note; NOTES: [facility] [address] [place] [address] 12 Lead EKG performed by BMS 05/09/17 1110 MR#: [id number] Acct: [id number] Name: COMFORT OLSON Rep #: [id number] : 1940 76 From: Jonel Rashid MD Attending Dr: Albert Kerr RN Status: DEP AMB Ordering Dr: Jonel Rashid MD Date: 05/09/17 Location: [facility] Sex: F C Admitted: BMS/12 Lead EKG performed by BMS ECG Report Interpretation Sinus Rhythm -Nonspecific QRS widening and anterior fascicular block. -Poor R-wave progression -nonspec ific -consider old anterior infarct. -Nonspecific ST depression -Nondiagnostic. ABNORMAL Electronically signed on 05/17/2017 at 18:31 by Jonel Rashid 05/17/17 1834 Date Jonel Rashid MD CC: Nia Uriostegui DO Date Dictated: 05/09/17 1110 Date Transcribed: 05/09/171109 Electronic Pagination System Operator: [place] Signed 06-May-2017 12 Lead Electrocardiogram Result: Comments: See Note; NOTES: [facility] Cardiovascular Services [address] [place] [address] 12 Lead EKG 05/04/177 MR#: [id number] Acct: [id number] Name: COMFORT OLSON Rep # : [id number] : 1940 76 From: Jonel Rashid MD [...] Abnormal ECG Confirmed by JONEL RASHID MD ([id number]), legal editor AMIRA CASTRO ([id number]) on 05/06/2017 1:42:52 PM Referred By: DONY Confirmed By:JONEL RASHID MD 05/06/17 1342 Date Jonel Rashid MD CC: Natalya Napoles MD; Niashahriar Uriostegui DO Signed 06-May-2017 12 Lead Electrocardiogram Result: Comments: See Note; NOTES: [facility] Cardiovascular Services [address] [place] [address] 12 Lead EKG 05/04/172044 MR#: [id number] Acct: [id number] Name: COMFORT OLSON Rep # : [id number] : 1940 76 From: Jonel Rashid MD [...] Abnormal ECG Confirmed by JONEL RASHID MD ([id number]), legal editor AMIRA CASTRO ([id number]) on 05/06/2017 1:08:29 PM Referred By: RICKY NAPOLES Confirmed By:JONEL RASHID MD 05/06/17 1308 Date Jonel Rashid MD CC: Natalya Napoles MD; Nia Moody [place] Signed 04-May-2017 Emergency Department Summary Result: Comments: See Note; NOTES: [facility] Medical Records Department [address] [place] [address] Emergency Department Summary 05/04/17 2259 MR#: [id number] Acct: [id number] Name: COMFORT OLSON Rep #: [id number] : 1940 76 From: Natalya Napoles MD [...] ED physician This note was generated with [employer] dictation software. It may contain incorre ct words, spelling, and punctuation that were not noted in review of the chart prior to signing ED Disposition - Plan for ED Patient: Chief Complaint: Palpitations Referrals: Nia Uriostegui, [[facility] Provider] - What to do if you have Problems For any increased pain, shortness of breath, bleeding, nausea or vomiting, chest pain, or any unexpected problems, contact your Primary Care Pro vider. Call [facility] ([phone]) or report to the closest Emergency Room. Call 911 if necessary. 05/04/17 7048 <Electronically signed by Natalya Napoles MD> Date Natalya Napoles MD Cosigner Signature (If Indicated): Date CC: Nia Uriostegui DO 04-May-2017 Discharge Instruction Result: Comments: See Note; NOTES: [facility] Medical Records Department [address] [place] [address] Discharge Instruction 05/04/17 7727 MR#: [id number] Acct: [id number] Name: Liyah OLSON Rep #: [id number] : 1940 76 From: Natalya Napoles MD [...] your Primary Care Provider. Call [facility] ([phone]) or report to the closest Emergency Room. Call 911 if necessary. 05/04/17 2341 <Electronically signed by Natalya Napoles MD> Date Natalya mary MD Cosigner Signature (If Indicated): Date CC: Nia Uriostegui DO 04-May-2017 Chest 1 View (Portable) Result: Comments: See Note; NOTES: [facility] Imaging Services [address] [place] [address] Chest 1 View (Portable) MR#: [id number] Acct: [id number] Name: COMFORT OLSON Rep #: [id number] : 1940 F 76 From: Rafael Perez MD PCP: Nia Uriostegui DO Status: REG ER Study: Chest 1 View (Portable) Date of Exam: 05/04/17 Exam# [id number] Ordering Dr: Natalya Napoles MD STUDY: X [...] CC: Natalya Napoles MD; Nia Uriostegui DO Electronic Pagination System Operator: Signed 19-Apr-2017 Emergency Department Summary Result: Comments: See Note; NOTES: [facility] Medical Records Department [facility] [place] [address] Emergency Department Summary 04/19/17 1757 MR#: [id number] Acct: [id number] Name: COMFORT OLSON Rep #: [id number] : 1940 76 From: Deisi Ryan MD [...] with RVR This note was generated with [employer] software. It may contain incorrect words, spelling, [...] blems, contact your Primary Care Provider. Call [facility] ([phone]) or report to the closest Emergency Room. Call 911 if necessary. 04/19/171930 <Electronically signed by Deisi moscoso MD> Date Deisi Ryan MD Cosigner Signature (If Indicated): Date CC: Nia Uriostegui DO 19-Apr-2017 Chest 1 View (Portable) Result: Comments: See Note; NOTES: [facility] Imaging Services [address] [place] [address] Chest 1 View (Portable) MR#: [id number] Acct: [id number] Name: COMFORT OLSON Rep #: [id number] : 1940 F 76 From: Thanh Ambriz MD PCP: Nia Uriostegui DO Status: PRE ER Study: Chest 1 View (Portable) Date of Exam: 04/19/17 Exam# [id number] Ordering Dr: Deisi Ryan MD STUDY: X- [...] CC: Deisi Ryan MD; Nia Uriostegui DO Electronic Pagination System Operator: Signed 14-Mar-2017 Cardiology Visit Report Result: Comments: See Note; NOTES: [facility] [address] [place] [address] OFFICE VISIT Date of Service: 03/14/17 MR#: [id number] Acct: [id number] Name: COMFORT OLSON Re p #: [id number] : 1940 Provider: JOSSELYN Lombardo Age/Sex: 76/F Location: [facility] Status: Signed HPI 3 M FU: Details: [...] less than 30% stenosis. Patient returned to Wire Photo Operator approximately one week later and showed a [...] Intak e Visit Reasons: 3 M FU Photoengraving Photographer Required: No Accompanied by: None Is patient [...] DAILY 11/11/16 [History Confirmed 02/28/17] M ethscopolamine [place] 5 mg PO BID 11/11/16 [History Confirmed [...] enlargement, left (Chronic) Atherosclerotic heart disease of [place] coronary artery without cynthia na pectoris (Chronic) [...] updated BP readings. 3. Atheroscle rosis of [place] coronary artery of [place] heart without angina pectoris I25.10 08/06/2004 CABG x2 VILLAGRAN side to side to second Diagonal and end to side to Anterior Descending artery in Sequential fashion . [facility]: 08/01/2004; 10/15/2011 Plan - SEEMA Spence Patient's [...] reviewing the office note prior to sa ving. Follow Up 6 Months (FINANCIAL PLANNING ADVISOR) Coding Level of Care Code Off vis,est,level 3 Diagnoses Essential hypertension I10 Hypertension type: essential hypertension Cardiomyopathy in diseases classified elsew here I43 Atherosclerosis of [place] coronary artery of [place] heart without angina pectoris I25.10 [place] vs. transplanted heart: [place] heart Paroxysmal atrial fibrillation I48.0 Mixed hyperlipidemia E7 8.2 Hyperlipidemia type: mixed hyperlipidemia Coding Level of Care Code Off vis,est,level 3 Diagnoses Essential hypertension I10 Hypertension type: essential hypertension Cardiomyopathy in diseases c lassified elsewhere I43 Atherosclerosis of [place] coronary artery of [place] heart without angina pectoris I25.10 [place] vs. transplanted heart: [place] heart Paroxysmal atrial fibrillation I48.0 Mixed hy perlipidemia E78.2 Hyperlipidemia type: mixed hyperlipidemia 03/14/17 1154 <Electronically signed by Richard Lombardo CARVING 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-C> Date Richard Lombardo CARVING 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-C 03/14/17 1527<Electronically signed by Jonel Rashid MD> Cosigner Signature: Date (if applicable) Jonel Rashid MD CC: Nia Uriostegui DO 10-Mar-2017 Echo, Complete w/ Contrast Result: Comments: See Note; NOTES: [facility] [facility] [address] [place] [address] Echo Complete W/ Contrast 03/10/17 1008 MR#: [id number] Acct: [id number] Name: COMFORT JONES Rep #: [id number] : 1940 76 From: Jonel Rashid MD Attending Dr: Jonel Rashid MD Status: REG CLI Ordering Dr: Jonel Rashid MD Date: 03/10/17 Location: [facility] Sex: F C Admitted: Reason Fo r [...] 03/10/17 1008 Date Transcr ibed: 03/10/17 1412 Electronic Pagination System Operator: Signed 13-Nov-2016 CTA Chest W/WO Contrast Result: Comments: See Note; NOTES: [facility] Imaging Services [address] [place] [address] CTA Chest W/WO Contrast MR#: [id number] Acct: [id number] Name: COMFORT OLSON Rep #: [id number] : 1940 F 75 From: Charly Almendarez DO PCP: Nia Uriostegui DO Status: REG ER Study: CTA Chest W/WO Contrast Date of Exam: 11/13/16 Exam# [id number] Ordering Dr: Emery Allen MD STUDY: CTA [...] CC: Emery Allen MD; Nia Uriostegui DO Electronic Pagination System Operator: Signed 11-Nov-2016 Chest 1 View (Portable) Result: Comments: See Note; NOTES: [facility] Imaging Services [address] [place] [address] Chest 1 View (Portable) MR#: [id number] Acct: [id number] Name: COMFORT OLSON Rep #: [id number] : 1940 F 75 From: Jorge Herman MD PCP: Nia Uriostegui DO Status: [facility] ER Study: Chest 1 View (Portable) Date of Exam: 11/11/16 Exam# [id number] Ordering Dr: Jignesh Tello MD STUDY: X-RA [...] CC: Nia vo DO; Jignesh Tello MD Electronic Pagination System Operator: Signed 16-Jan-2016 Chest PA and Lateral Result: Comments: See Note; NOTES: [facility] Imaging Services [address] [place] [address] Verdana 4d Chest PA and Lateral MR#: [id number] Acct: [id number] Name: COMFORT OLSON Rep #: [id number] : 1940 F 75 From: John Babcock MD PCP: Balbir Cramer Status: REG CLI Study: Chest PA and Lateral Date of Exam: 01/16/16 Exam# [id number] Ordering Dr: Balbir Cramer STUDY: X-RAY CHEST [...] John Babcock MD at 13:26 EST Tel [phone], Service support , CC: Balbir Cramer Electronic Pagination System Operator: Signed 14-Dec-2014 Bilat Scrn Digital AND CAD Result: Comments: See Note; NOTES: [facility] Imaging Services [address] [place] [address] [place] [address] Verdana 4d Bilat Scrn Digital AND CAD MR#: [id number] Acct: [id number] Name: COMFORT OLSON Rep #: [id number] : 1940 F 74 From: John Babcock MD PCP: Maylin Melendez DO Status: REG CLI Study: Bilat Scrn Digital AND CAD Date of Exam: 12/14/14 Exam# [id number] Ordering D r: Maylin Melendez DO MAMMOGRAPHY [...] John Babcock MD at 14:05 EST Tel [phone], Service support [phone], CC: Maylin Melendez DO Electronic Pagination System Operator: Signed 14-Dec-2014 Carotid Duplex Ultrasound Result: Comments: See Note; NOTES: [facility] Cardiovascular Services [address] [place] [address] Carotid Duplex Ultrasound 12/12/14 [facility][note 3] MR#: [id number] Acct: [id number] Name: COMFORT OLSON Rep #: [id number] : 1940 74 From: Darian Anderson MD Attending Dr: Maylin Melendez DO Status: REG CLI Ordering Dr: Maylin Melendez DO Date: 12/12/14 Location: [facility] Sex: F C Admi tted: Rt. Velocities/BP [...] the left vertebral artery. Procedure Carotid Duplex 49535. Exam performed in department. Interpreta tion Summary [...] Date Dictated: 12/12/14 1007 Date Transcribed: 12/14/1437 Electronic Pagination System Operator: Signed 25-Apr-2014 Nuclear Stress Test - Chemical Result: Comments: See Note; NOTES: [facility] Imaging Services [address] [place] [address] Nuclear Medicine Report MR#: [id number] Acct: [id number] Name: COMFORT OLSON Rep #: [id number] : 1940 F 73 From: Jonel Rashid MD PCP: Maylin Melendez DO Status: REG CLI Study: Nuclear Stress Test - Chemical Date of Exam: 04/25/14 Exam# [id number] Ordering Dr: Jonel Rashid MD HARMACOLOGIC MYOCARDIAL PERFUSION STRESS TEST REASON FOR [...] CC: Jonel Rashid MD; Maylin Melendez DO Electronic Pagination System Operator: CALIX Signed 31-Jan-2014 Spirometry (77343) Comments: Moderate restriction similar to previous Result: 14-Jan-2014 Chest PA and Lateral Result: Comments: See Note; NOTES: [facility] Imaging Services [address] [place] [address] Radiology Report MR#: [id number] Acct: [id number] Name: COMFORT OLSON Rep #: [id number] : 1940 F 73 From: John Babcock MD PCP: Maylin Melendez DO Status: REG CLI Study: Chest PA and Lateral Date of Exam: 01/14/14 Exam# [id number] Ordering Dr: Sherrie Amor STUDY: X-RAY CH [...] John Babcock MD at 14:58 EST Tel [phone], Service support [phone], RAD/Chest PA and Lateral IMPRESSION: Mild increased markings at the lung bases suggestive of linear atelectasis. Electronica lly Signed: John Babcock MD at 14:58 EST Tel [phone], Service support [phone], CC: Sherrie Amor; Maylin Melendez DO Electronic Pagination System Operator: Signed 07-Sep-2013 Knee 4 or More Views Result: Comments: See Note; NOTES: [facility] Imaging Services [address] [place] [address] Radiology Report MR#: [id number] Acct: [id number] Name: COMFORT OLSON Rep #: [id number] : 1940 F 72 From: Yusuf Lopes PCP: Maylin Melendez DO Status: REG CLI Study: Knee 4 or More Views Date of Exam: 09/07/13 Exam# [id number] Ordering Dr: Maylin Melendez DO STUDY: X-RAY [...] Yusuf Lopes MD at 4:00 EDT Tel [phone] , Service support [phone] , CC: Maylin Melendez DO Electronic Pagination System Operator: Signed 22-Aug-2013 Carotid Duplex Ultrasound Result: Comments: See Note; NOTES: [facility] Cardiovascular Services [address] [place] [address] Carotid Duplex Ultrasound 08/20/13 0945 MR#: [id number] Acct: [id number] Nam e: COMFORT OLSON Rep #: [id number] : 1940 72 From: Darian Anderson MD [...] the left vertebral artery. Procedure Carotid Duplex 94190. Exam performed in [facility] ent. Interpretation Summary Mild (<50%) stenosis right extracranial internal carotid. Mild (<50%) stenosis left extracranial internal carotid. Flow within the vertebral arteries is antegrade bilaterally. Ordering Physician: Maylin Melendez Performed By: Sanaz Sheth RVT : Maylin Melendez DO Date Dictated: 08/20/1345 Date Transcribed: 08/22/1348 Electronic Pagination System Operator: Signed 09-Jul-2013 Chest PA and Lateral Result: Comments: See Note; NOTES: [facility] Imaging Services [address] [place] [address] Radiology Report MR#: [id number] Acct: [id number] Name: COMFORT OLSON Rep #: [id number] : 1940 F 72 From: Jermaine Khan DO PCP: Maylin Melendez DO Status: REG CLI Study: Chest PA and Lateral Date of Exam: 07/09/13 Exam# [id number] Ordering Dr: Sherrie Amor STUDY: X-RAY CHEST [...] Jermaine Khan DO at 22:50 EDT Tel [phone] , Service support [phone], CC: Sherrie Amor; Maylin Melendez DO Electronic Pagination System Operator: Signed 08-Jan-2013 PT Discharge Summary Result: Comments: See Note; NOTES: [facility] [address] [place] [address]. [address] [place] [address] Fax REHABILITATION SERVICES DISCHARGE SUMMARY MR#: [id number] Acct: [id number] Name: COMFORT OLSON Rep #: [id number] : 1940 72 From: Farrukh Hull Referring [...] has. Farrukh Hull, PT T: NTS JOB: [id number] <Electronically signed by Farrukh Hull > 01/08/13 0648 CC: * Signed 18-Dec-2012 Inital Evaluation - PT Result: Comments: See Note; NOTES: [facility] [address] [place] [address]. 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 No obvious nystagmus. Right- sided Hallpike Edwards test is positive for dizziness of approximately [...] was agreeable to this course of therapy. Farurkh Hull, PT T: NTS JOB: [id number] <Electronically signed by Farrukh Hull > 12/18/12 1151 CC: Signed For Medicare only, by signing this I certify the plan of care. 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 Status: Active Smoking Status Name Dates Details Never smoker Vital Signs Date Test Result Details 08-Hci-428396:10 Temperature 97.2 f Comments: Method: Temporal Pulse [...] kg/m2 Body Surface Area Calculated 1.91 m2 84-Sfi-478465:16 Pulse 79 /min Comments: Pattern: Regular Respiration [...] kg/m2 Body Surface Area Calculated 2.01 m2 83-Het-678920:19 Temperature 96.1 f Pulse 76 /min Comments: [...] kg/m2 Body Surface Area Calculated 2 m2 14-Fqn-173136:11 Comments: Recheck BP 158/82 Temperature 100 f [...] 0.00 cm Results Date Description Value Details 7-Gtk-324127:39 Basic Metabolic Profile (BMP) Comments: [facility] [address] [place], [address] GAP 9 (Normal) Range: 5-15 CO2 26.0 [...] A.D.A. criteria.Please note revised GLUCOSE reference range duzpmcbnj36/02/2018. 1-Got-049452:20 VITAMIN B-12 (CYANOCOBALAMIN) Comments: PATIENT NOT FASTINGPERFORMED BY: [facility] [address] [place] [id number] ([id number]) Vitamin B12 362 pg/mL (Normal) Range: 232-1245 3-Ykf-296118:42 HgA1C , Office (92451) HgA1C , Office 7.1 % (Normal) Range: 4.6 - 7.1 7-Kcf-751721:42 Blood Glucose , Office (59338) Blood Glucose , Office 135 (Normal) :55 Basic Metabolic Profile (BMP) Comments: [facility] [address] [place], [place], [address] GAP 14 (Normal) Range: 5-15 CO2 23.0 [...] A.D.A. criteria.Please note revised GLUCOSE reference range bhhlinjmm11/02/2018. 43-Bpo-58673:55 CBC W/Diff, Automated Comments: [facility] [address] [facility] [address] [place], [place], [address] Absolute Lymph 2.08 {X10_3/ul} (Normal) Range: 0.83-4.51 [...] 4.2-5.4 WBC 8.7 K/mm3 (Normal) Range: 4.4-11.0 45-Eik-68379:55 Troponin-I Comments: [facility] [address] [facility] [address] [place], [place], [address] TROPONIN-I < 0.015 ng/mL (Normal) Comments: TROPONIN-I EXPECTED VALUES <0.045 Negative 0.045 - 0.590 Consistent with Cardiac Damage > OR = 0.600 Critical Value Not every elevated troponin is indicative of IA. T hesevalues should be used with clinical judgement in examiningthe patient's clinical picture for diagnosis. To establisha diagnosis of IA versus myocardial injury, there must be ademonstrated rise and/ or fall in the troponin values, inaddition to ischemic symptoms, EKG changes, new regionalwall motion abnormality, and/or angiographical evidence. PLEASE NOTE: REFERENCE RANGES EDITED 06/23/1729-Sep-20179:05 Basic Metabolic Profile (BMP) Comments: [facility] [address] [place], [place], [address] GAP 8 (Normal) Range: 5-15 CO2 28.0 [...] A.D.A. criteria.Please note revised GLUCOSE reference range rrfzychzs10/02/2018. 71-Aka-14715:05 CBC W/Diff, Automated Comments: [facility] [address] [place], [place], [address] Absolute Lymph 2.24 {X10_3/ul} (Normal) Range: 0.83-4.51 [...] 4.2-5.4 WBC 8.3 K/mm3 (Normal) Range: 4.4-11.0 52-Vqj-47772:05 Troponin-I Comments: [facility] [address] [place], [address] TROPONIN-I 0.020 ng/mL (Normal) Comments: TROPONIN-I EXPECTED VALUES <0.045 Negative 0.045 - 0.590 Consistent with Cardiac Damage > OR = 0.600 Critical Value Not every elevated troponin is indicative of IA. T hesevalues should be used with clinical judgement in examiningthe patient's clinical picture for diagnosis. To establisha diagnosis of IA versus myocardial injury, there must be ademonstrated rise and/ or fall in the troponin values, inaddition to ischemic symptoms, EKG changes, new regionalwall motion abnormality, and/or angiographical evidence. PLEASE NOTE: REFERENCE RANGES EDITED 06/23/1727-Aug-201769-Otg-244278:18 HgA1C , Office (24583) HgA1C , Office 7.6 % (Abnormal) Range: 4.6 - 7.1 79-Qro-605117:18 Blood Glucose , Office (28522) Blood Glucose , Office 142 (Normal) :51 Basic Metabolic Profile (BMP) Comments: [facility] [address] [place], [place], [address] GAP 9 (Normal) Range: 5-15 CO2 25.0 [...] A.D.A. criteria.Please note revised GLUCOSE reference range jvulnwkls52/02/2018. :51 CBC W/Diff, Automated Comments: [facility] [address] [place], [place], [address] Absolute Lymph 2.43 {X10_3/ul} (Normal) Range: 0.83-4.51 [...] 4.2-5.4 WBC 9.6 K/mm3 (Normal) Range: 4.4-11.0 46-Qmm-05979:51 Troponin-I Comments: [facility] [address] [place], [address] TROPONIN-I < 0.015 ng/mL (Normal) Comments: TROPONIN-I EXPECTED VALUES <0.045 Negative 0.045 - 0.590 Consistent with Cardiac Damage > OR = 0.600 Critical Value Not every elevated troponin is indicative of IA. T hesevalues should be used with clinical judgement in examiningthe patient's clinical picture for diagnosis. To establisha diagnosis of IA versus myocardial injury, there must be ademonstrated rise and/ or fall in the troponin values, inaddition to ischemic symptoms, EKG changes, new regionalwall motion abnormality, and/or angiographical evidence. PLEASE NOTE: REFERENCE RANGES EDITED 06/23/1728-May-201761-Izo-780174:47 CALCIFEDIOL (63294) Comments: PATIENT NOT FASTINGPERFORMED BY: [facility] [id number] Vitamin D, 25-Hydroxy 20.2 ng/mL (Abnormal) Range: 30.0-100.0 Comments: Vitamin D deficiency has been defined by the [place] ofMedicine and an Endocrine Society practice guideline as alevel of serum 25-OH vitamin D less than 20 ng/mL (1,2).The Endocrine Society went on to further define vitamin Dinsufficiency as a level between 21 and 29 ng/mL (2).1. IOM ([place] of Medicine). 2010. Dietary reference intakes for calcium and D. [place]: The National Academies Press.2. Bobo MF, Estrellita NC, Maddi CALIX, et al. Evaluation, treatment, and prevention of vitamin D deficiency: an Endocrine Society clinical practice guideline. JCEM. 2010; 96(7):1911-30. 44-Ikm-843487:47 VITAMIN B-12 (CYANOCOBALAMIN) Comments: PATIENT NOT FASTINGPERFORMED BY: [facility] Cnkyob1107 [facility] [id number] (23725) Vitamin B12 311 pg/mL (Normal) Range: 232-1245 40-Nbr-332733:26 HgA1C , Office (77963) HgA1C , Office 7.3 % (Abnormal) Range: 4.6 - 7.1 30-Cep-748730:26 Blood Glucose , Office (73895) Blood Glucose , Office 136 (Normal) 43-Hon-819888:56 Basic Metabolic Profile (BMP) Comments: 'TROP' Serial specimen #1, #2, #3, or #4: [address] [place] [address] [address] [place], [address] GAP 11 (Normal) Range: 5-15 CO2 27.0 [...] A.D.A. criteria.Please note revised GLUCOSE reference range tthbzfaje71/02/2018. 93-Jog-434349:56 CBC W/Diff, Automated Comments: [facility] [address] [place], [address] Absolute Lymph 3.30 {X10_3/ul} (Normal) Range: 0.83-4.51 [...] 4.2-5.4 WBC 9.3 K/mm3 (Normal) Range: 4.4-11.0 30-Qqa-024848:56 Troponin-I Comments: 'TROP' Serial specimen #1, #2, #3, or #4: [address] [place] [address] [address] [place], [address] TROPONIN-I < 0.02 ng/mL (Normal) Comments: TROPONIN-I EXPECTED VALUES <0.05 NEGATIVE 0.06 - 0.59 AT RISK OF IA > OR = 0.60 SUGGEST IA 39-Fky-120398:33 Basic Metabolic Profile (BMP) Comments: 'TROP' Serial specimen #1, #2, #3, or #4: [address] [place] [address] [address] [place], [place], [address] GAP 10 (Normal) Range: 5-15 CO2 25.0 [...] A.D.A. criteria.Please note revised GLUCOSE reference range giwqrkhqd00/02/2018. 46-Ovf-598943:33 CBC W/Diff, Automated Comments: [facility] [address] [place], [address] Absolute Lymph 3.48 {X10_3/ul} (Normal) Range: 0.83-4.51 [...] 4.2-5.4 WBC 10.4 K/mm3 (Normal) Range: 4.4-11.0 45-Ftb-971391:33 Troponin-I Comments: 'TROP' Serial specimen #1, #2, #3, or #4: [address] [address] [place], [address] TROPONIN-I 0.14 ng/mL (Abnormal) Comments: TROPONIN-I EXPECTED VALUES <0.05 NEGATIVE 0.06 - 0.59 AT RISK OF IA > OR = 0.60 SUGGEST IA 2-Eft-771118:16 HgA1C , Office (52626) HgA1C , Office 7.9 % (Abnormal) Range: 4.6 - 7.1 8-Pqz-701971:15 Blood Glucose , Office (56820) Blood Glucose , Office 166 (Normal) 4-Djl-028272:25 Basic Metabolic Profile (BMP) Comments: Order Date: 12/13/16Order Info: 0667-1 - *BMPComments: Reason:[facility] [address] [place], [place], [address] GAP 9 (Normal) Range: 5-15 CO2 29.0 [...] 200 mg/dLsuggests DIABETES MELLITUS per A.D.A. criteria. 29-Fpr-009522:27 Basic Metabolic Profile (BMP) Comments: Order Date: 11/19/16Order Info: 0667-1 - *BMPComments: Reason:[facility] [address] [place], [place], [address] GAP 8 (Normal) Range: 5-15 CO2 27.0 [...] 200 mg/dLsuggests DIABETES MELLITUS per A.D.A. criteria. 82-Iqq-881557:27 Partial Thromboplast Time Comments: Order Date: 11/19/16Order Info: 6301-6 - *PT/INROrder Info: 59864-3 - *P[facility] [address] [place], [place], [address](507) PTT 29.4 s (Normal) Range: 24.1-36.2 :27 Prothrombin Time w/INR Comments: Order Date: 11/19/16Order Info: 6301-6 - *PT/INROrder Info: 57445-0 - *PTT-[facility]romboplast[facility]WF[facility] [address] [place], [place], [address](220) INR 1.1 (Normal) PROTIME 13.4 s (Normal) Range: 11.7-14.9 :05 Basic Metabolic Profile (BMP) Comments: 'TROP' Serial specimen #1, #2, #3, or #4: [address] [address] [place], [place], [address] GAP 10 (Normal) Range: 5-15 CO2 25.0 [...] A.D.A. criteria. :05 BNP,B-Type NATRIURETIC PEPTIDE Comments: [facility] [address] [facility] [place], [address] B-TYPE ANDREW PEP 316.0 pg/mL (Abnormal) Range: 0-100 :05 CBC W/Diff, Automated Comments: [facility] [address] [facility] [address] [place], [place], [address] Absolute Lymph 1.26 {X10_3/ul} (Normal) Range: 0.83-4.51 [...] Serial specimen #1, #2, #3, or #4: [address] [place] [address] [address] [place], [address] TROPONIN-I 0.15 ng/mL (Abnormal) Comments: TROPONIN-I EXPECTED VALUES <0.05 NEGATIVE 0.06 - 0.59 AT RISK OF IA > OR = 0.60 SUGGEST IA 5-Dmc-619706:10 Basic Metabolic Profile (BMP) Comments: 'TROP' Serial specimen #1, #2, #3, or #4: [address] [place] [address] [address] [place], [place], [address] GAP 13 (Normal) Range: 5-15 CO2 22.0 [...] 200 mg/dLsuggests DIABETES MELLITUS per A.D.A. criteria. :10 CBC W/Diff, Automated Comments: [facility] [address] [place], [place], [address] Absolute Lymph 2.88 {X10_3/ul} (Normal) Range: 0.83-4.51 [...] Serial specimen #1, #2, #3, or #4: 1[facility] [address] [place], [place], [address] TSH 1.29 {uIU/mL} (Normal) Range: 0.358-3.74 :10 Troponin-I Comments: 'TROP' Serial specimen #1, #2, #3, or #4: [address] [place] [address] [address] [place], [place], [address] TROPONIN-I < 0.02 ng/mL (Normal) Comments: TROPONIN-I EXPECTED VALUES <0.05 NEGATIVE 0.06 - 0.59 AT RISK OF IA > OR = 0.60 SUGGEST IA :58 HgA1C , Office (21552) HgA1C , Office 7.6 % (Abnormal) Range: 4.6 - 7.1 :58 Blood Glucose , Office (95338) Blood Glucose , Office 159 (Normal) :50 CBC W/Diff, Automated Comments: [facility] [address] [place], [place], [address] Absolute Lymph 1.46 {X10_3/ul} (Normal) Range: 0.83-4.51 [...] 4.2-5.4 WBC 7.3 K/mm3 (Normal) Range: 4.4-11.0 05-Hpp-002433:50 CCP IgG Antibodies Comments: [facility] (refer to report for specific site)refer to report for address and phone number ANTI-CCP 576983 4 {units} (Normal) Range: 0-19 Comments: Negative <20 Weak positive 20 - 39 Moderate positive 40 - 59 Strong positive >59 94-Eat-510031:50 Comprehensive Metabolic Profil Comments: [facility] [address] [place], [place], [address] GAP 9 (Normal) Range: 5-15 CO2 26.0 [...] 126 mg/dLsuggests DIABETES MELLITUS per A.D.A. criteria. 23-Gfh-678672:50 CRP Comments: [facility] [address]ouz[address] [facility] [place], [place], [address] C-REACTIVE PROT 8.89 mg/L (Abnormal) Range: 0.0-3.0 Comments: C-Reactive Protein (CRP) provides useful information for thediagnosis, therapy and monitoring of inflammatory processesand associated diseases. For the evaluation of Relative Riskfor Cardiovascular Dise ase, a High Sensitivity CRP (HSCRP)should be ordered. 16-Pfm-991404:50 Erythrocyte Sed Rate Comments: [facility] [address]ief[address]lym[address] [facility] [place], [place], [address] SED RATE 27 mm/h (Normal) Range: 0-30 01-Nnp-212310:50 Hep B Surface Antibodies Comments: [facility] (refer to report for specific site)refer to report for address and phone number Hep B Booker AB Non Reactive (Normal) Comments: Non Reactive: Inconsistent with immunity, less than 10 mIU/mL Reactive: Consistent with immunity, greater than 9.9 mIU/ mL 59-Sfc-117298:50 Hepatitis B Surface Ag Comments: [facility] (refer to report for specific site)refer to report for address and phone number HB SURF AG Negative (Normal) Comments: Performed at: CB - [facility] [id number] Director: Christopher Sullivan PhD, Phone: [phone] at: - [facility] [id number] Director: Loco Ivey MD, Phone: [phone] 26-Edl-648995:50 Hepatitis C Antibodies Comments: [facility] (refer to report for specific site)refer to report for address and phone number HEP C AB <0.1 {s/co_ratio} (Normal) Range: 0.0-0.9 Comments: Negative: < 0.8 Indeterminate: 0.8 - 0.9 Positive: > 0.9 The CDC recommends that a positive HCV antibody result be followed up with a HCV Nucleic Acid Amplification test (115955). :50 Rheumatoid Factor Comments: [facility] [address] [facility] [address] [place], [place], [address] RHEUMATOID FAC < 10.0 {IU/mL} (Normal) :50 Uric Acid Comments: [facility] [address] [facility] [address] [place], [place], [address] URIC 7.1 mg/dL (Abnormal) Range: 2.6-6.0 Comments: The drugs N-Acetylcysteine and Metamizole may falselydepress this assay. :03 Unable to Void SPRCS (Normal) Comments: PATIENT WAS FASTINGPERFORMED BY: [facility] [id number] Comments: The patient was not able to render a urine sample and has beeninstructed to return for a urine collection at their earliestconvenience. The urine testing that you have requested hasbeen deleted from th is report. When the patient returns andprovides a urine specimen, the urine testing will be performedand separately reported. :03 VITAMIN B-12 (CYANOCOBALAMIN) Comments: PATIENT WAS FASTINGPERFORMED BY: [facility] [id number] ([id number]) Vitamin B12 264 pg/mL (Normal) Range: 211-946 :03 METABOLIC PANEL, COMPREHENSIVE Comments: PATIENT WAS FASTINGPERFORMED BY: [facility] [id number] (10039) ALT (SGPT) 7 [iU]/L (Normal) Range: 0-32 [...] mg/dL (Abnormal) Range: 65-99 :03 LIPID PANEL (31138) Comments: PATIENT WAS FASTINGPERFORMED BY: [facility] [id number] VLDL Cholesterol Jyoti VLDLCH mg/dL (Normal) Range: 5-40 Comments: The calculation for the VLDL cholesterol is not valid whentriglyceride level is >400 mg/dL.Triglyceride result indicated is too high for an accurate LDLcholesterol estimation. HDL Cholesterol 26 mg/dL (Abnormal) Triglycerides 542 mg/dL (Abnormal) Range: 0-149 Cholesterol, Total 183 mg/dL (Normal) Range: 100-199 :03 CBC W/AUTO DIFF WBC (30134) Comments: PATIENT WAS FASTINGPERFORMED BY: [facility]LiveAt[facility] [id number] Immature Grans (Abs) 0.0 {x10E3/uL} (Normal) Range: [...] 3.77-5.28 WBC 8.1 {x10E3/uL} (Normal) Range: 3.4-10.8 86-Dbd-730604:48 HgA1C , Office (63032) HgA1C , Office 8.0 % (Abnormal) Range: 4.6 - 7.1 :48 Blood Glucose , Office (55955) Blood Glucose , Office 166 (Normal) :06 CALCIFEDIOL (76301) Comments: PATIENT NOT FASTINGPERFORMED BY: LabCoChilton Memorial HospitalQmhvrl7042 [facility] [id number] Vitamin D, 25-Hydroxy 51.1 ng/mL (Normal) Range: 30.0-100.0 Comments: Vitamin D deficiency has been defined by the [place] ofMedicine and an Endocrine Society practice guideline as alevel of serum 25-OH vitamin D less than 20 ng/mL (1,2).The Endocrine Society went on to further define vitamin Dinsufficiency as a level between 21 and 29 ng/mL (2).1. IOM (Olga of Medicine). 2010. Dietary reference intakes for calcium and D. [place]: The National Academies Press.2. Bobo MF, Estrellita NC, Maddi CALIX, et al. Evaluation, treatment, and prevention of vitamin D deficiency: an Endocrine Society clinical practice guideline. JCEM. 2010; 96(7):1911-30. 6-Yta-318553:06 CBC, PLATELETS & AUT DIFF Comments: PATIENT NOT FASTINGPERFORMED BY: LabCoChilton [facility] HospitalNhxkzt8479 [facility] [id number] (22496) Immature Grans (Abs) 0.0 {x10E3/uL} (Normal) Range: [...] (Normal) Range: 3.4-10.8 :36 HgA1C , Office (01095) HgA1C , Office 8.0 % (Abnormal) Range: 4.6 - 7.1 :36 Blood Glucose , Office (97834) Blood Glucose , Office 155 (Normal) :39 METABOLIC PANEL, COMPREHENSIVE Comments: PATIENT WAS FASTINGPERFORMED BY: LabCoChilton Memorial HospitalAzdanr0693 [facility] [id number] (31700) ALT (SGPT) 6 [iU]/L (Normal) Range: 0-32 [...] mg/dL (Abnormal) Range: 65-99 :39 LIPID PANEL (92835) Comments: PATIENT WAS FASTINGPERFORMED BY: [employer]70 [facility] [id number] LDL/HDL Ratio 3.6 {ratio_units} (Abnormal) Range: 0.0-3.2 Comments: LDL/HDL Ratio Men Women 1/2 Avg.Risk 1.0 1.5 Av g.Risk 3.6 3.2 2X Avg.Risk 6.2 5.0 3X Avg.Risk 8.0 6.1 LDL Cholesterol Calc 104 mg/dL (Abnormal) Range: 0-99 VLDL Cholesterol Jyoti 72 mg/dL (Abnormal) Range: 5-40 HDL Cholesterol 29 mg/dL (Abnormal) Triglycerides 359 mg/dL (Abnormal) Range: 0-149 Cholesterol, Total 205 mg/dL (Abnormal) Range: 100-199 80-Ntc-991215:49 Blood Glucose , Office (38002) Blood Glucose , Office 159 (Normal) 03-Dcf-899662:49 HgA1C , Office (75287) HgA1C , Office 8.1 % (Abnormal) Range: 4.6 - 7.1 :03 VITAMIN B-12 (CYANOCOBALAMIN) Comments: PATIENT WAS FASTINGPERFORMED BY: [employer]70 [facility] [id number] (30608) Vitamin B12 319 pg/mL (Normal) Range: 211-946 14-Man-851782:03 LIPID PANEL (56950) Comments: PATIENT WAS FASTINGPERFORMED BY: [employer]70 [facility] [id number] VLDL Cholesterol Jyoti VLDLCH mg/dL (Normal) Range: [...] Cholesterol, Total 192 mg/dL (Normal) Range: 100-199 25-Wun-314304:03 Vitamin D Hydroxy (38612) Comments: PATIENT WAS FASTINGPERFORMED BY: [facility] AtomicsSelect [facility]inte6370 [facility] [id number] Vitamin D, 25-Hydroxy 21.1 ng/mL (Abnormal) Range: 30.0-100.0 Comments: Vitamin D deficiency has been defined by the [place]ga ofMedicine and an Endocrine Society practice guideline as alevel of serum 25-OH vitamin D less than 20 ng/mL (1,2).The Endocrine Society went on to further define vitamin Dinsufficiency as a level between 21 and 29 ng/mL (2).1. IOM (Olga of Medicine). 2010. Dietary reference intakes for calcium and D. [place]: The National Academies Press.2. Bobo MF, Estrellita NC, Maddi CALIX, et al. Evaluation, treatment, and prevention of vitamin D deficiency: an Endocrine Society clinical practice guideline. JCEM. 2010; 96(7): 1911-30.; ADDENDA: non-emergent till apt next week 85-Ixg-014760:03 MICROALBUMIN: CREATININE RATIO Comments: PATIENT WAS FASTINGPERFORMED BY: [facility]omicsSelect [facility]6370 [facility] [id number] (74094) AND (53869) Microalb/Creat Ratio 26.1 {mg/g_creat} (Normal) Range: 0.0-30.0 Microalbumin, Urine 20.0 ug/mL (Normal) Creatinine, Urine 76.5 mg/dL (Normal) 37-Dng-133414:03 CBC W/AUTO DIFF WBC Comments: PATIENT WAS FASTINGPERFORMED BY: [facility]6370 [facility] [id number] Information: [id number] (56062) Immature Grans (Abs) 0.0 {x10E3/uL} (Normal) Range: [...] 3.77-5.28 WBC 8.1 {x10E3/uL} (Normal) Range: 3.4-10.8 18-Flr-827067:03 METABOLIC PANEL, COMPREHENSIVE Comments: PATIENT WAS FASTINGPERFORMED BY: LabCoCh[facility] HospitalMyheiq0972 [facility] [id number] (25983) ALT (SGPT) 7 [iU]/L (Normal) Range: 0-32 [...] (Abnormal) Range: 65-99 :53 Vitamin D Hydroxy (33760) Comments: PATIENT WAS FASTINGPERFORMED BY: Doctor.com6370 [employer] [facility] [id number] Vitamin D, 25-Hydroxy 25.5 ng/mL (Abnormal) Range: 30.0-100.0 Comments: Vitamin D deficiency has been defined by the Olga ofK[facility] Health Springfieldcine and an Endocrine Society practice guideline as alevel of serum 25-OH vitamin D less than 20 ng/mL (1,2).The Endocrine Society went on to further define vitamin Dinsufficiency as a level between 21 and 29 ng/mL (2).1. IOM (Olga of Medicine). 2010. Dietary reference intakes for calcium and D. [place]: The National Academies Press.2. Bobo MF, Estrellita NC, Maddi CALIX, et al. Evaluation, treatment, and prevention of vitamin D deficiency: an Endocrine Society clinical practice guideline. JCEM. 2010; 96(7):1911-30. :53 LIPID PANEL (09986) Comments: PATIENT WAS FASTINGPERFORMED BY: Quotefish [facility] Erqeky7652 [facility] [id number] LDL/HDL Ratio 3.7 {ratio_units} (Abnormal) Range: 0.0-3.2 Comments: LDL/HDL Ratio Men Women 1/2 Avg.Risk 1.0 1.5 Av g.Risk 3.6 3.2 2X Avg.Risk 6.2 5.0 3X Avg.Risk 8.0 6.1 LDL Cholesterol Calc 103 mg/dL (Abnormal) Range: 0-99 VLDL Cholesterol Jyoti 60 mg/dL (Abnormal) Range: 5-40 HDL Cholesterol 28 mg/dL (Abnormal) Triglycerides 298 mg/dL (Abnormal) Range: 0-149 Cholesterol, Total 191 mg/dL (Normal) Range: 100-199 17-Apr-20169:34 METABOLIC PANEL, COMPREHENSIVE Comments: PATIENT WAS FASTINGPERFORMED BY: LabCoChilton Memorial HospitalVnkmhi2129 [facility] [id number] (83942) ALT (SGPT) 5 [iU]/L (Normal) Range: 0-32 [...] mg/dL (Abnormal) Range: 65-99 :34 HGB A1C (84346) Comments: PATIENT WAS FASTINGPERFORMED BY: [employer]70 Ryan [facility] [id number] Hemoglobin A1c 8.9 % (Abnormal) Range: 4.8-5.6 Comments: . Pre-diabetes: 5.7 - 6.4 Diabetes: >6.4 Glycemic control for adults with diabetes: <7.0 :11 VITAMIN B-12 (CYANOCOBALAMIN) Comments: B12lot:5200exp:06/26site:lt deltroute:Romeose:chilo Camargo; PATIENT WAS FASTINGPERFORMED BY: epicurio6370 [facility] [id number] (35444) Vitamin B12 301 pg/mL (Normal) Range: 211-946 :11 Vitamin D Hydroxy (88413) Comments: PATIENT WAS FASTINGPERFORMED BY: epicurio6370 [facility] [id number] Vitamin D, 25-Hydroxy 20.3 ng/mL (Abnormal) Range: 30.0-100.0 Comments: Vitamin D deficiency has been defined by the Olga ofMedicine and an Endocrine Society practice guideline as alevel of serum 25-OH vitamin D less than 20 ng/mL (1,2).The Endocrine Society went on to further define vitamin Dinsufficiency as a level between 21 and 29 ng/mL (2).1. IOM (Olga of Medicine). 2010. Dietary reference intakes for calcium and D. [place]: The National Academies Press.2. Bobo VALLES, Estrellita STOCKTON, Maddi CALIX, et al. Evaluation, treatment, and prevention of vitamin D deficiency: an Endocrine Society clinical practice guideline. JCEM. 2010; 96(7):1911-30. :11 METABOLIC PANEL, Comments: PATIENT WAS FASTINGPERFORMED BY: [employer]70 [facility] [id number] Information: [id number] COMPREHENSIVE (49031) ALT (SGPT) 6 [iU]/L (Normal) Range: 0-32 [...] mg/dL (Abnormal) Range: 65-99 :11 LIPID PANEL (96925) Comments: PATIENT WAS FASTINGPERFORMED BY: Valensum Ahtigs1595 RyanListRunnerUNC Health [id number]; will review on 07/04 LDL/HDL Ratio 4.0 [...] mg/dL (Abnormal) Range: 100-199 :11 HGB A1C (68162) Comments: PATIENT WAS FASTINGPERFORMED BY: Andro DiagnosticsChilton Memorial HospitalZkpjbs5512 [facility] [id number] Hemoglobin A1c 8.5 % (Abnormal) Range: 4.8-5.6 Comments: . Pre-diabetes: 5.7 - 6.4 Diabetes: >6.4 Glycemic control for adults with diabetes: <7.0 :16 Vitamin D Hydroxy (53337) Comments: PATIENT WAS FASTINGPERFORMED BY: [employer] Mjqvkg4788 [facility] [id number] Vitamin D, 25-Hydroxy 21.3 ng/mL (Abnormal) Range: 30.0-100.0 Comments: Vitamin D deficiency has been defined by the Olga ofMedicine and an Endocrine Society practice guideline as alevel of serum 25-OH vitamin D less than 20 ng/mL (1,2).The Endocrine Society went on to further define vitamin Dinsufficiency as a level between 21 and 29 ng/mL (2).1. IOM (Olga of Medicine). 2010. Dietary reference intakes for calcium and D. [place]: The National Academies Press.2. Bobo MF, Estrellita STOCKTON, Maddi CALIX, et al. Evaluation, treatment, and prevention of vitamin D deficiency: an Endocrine Society clinical practice guideline. JCEM. 2010; 96(7):1911-30. :16 VITAMIN B-12 (CYANOCOBALAMIN) Comments: PATIENT WAS FASTINGPERFORMED BY: [facility]6370 [facility] [id number] (71315) Vitamin B12 283 pg/mL (Normal) Range: 211-946 :16 CBC W/AUTO DIFF WBC Comments: PATIENT WAS FASTINGPERFORMED BY: [facility]6370 [facility] [id number] Information: [id number] (54010) Immature Grans (Abs) 0.0 {x10E3/uL} (Normal) Range: [...] {x10E3/uL} (Normal) Range: 3.4-10.8 :16 LIPID PANEL (07702) Comments: PATIENT WAS FASTINGPERFORMED BY: [employer] Kmsxxz9837 [facility] [id number] VLDL Cholesterol Jyoti VLDLCH mg/dL (Normal) Range: [...] Cholesterol, Total 168 mg/dL (Normal) Range: 100-199 11-Ell-349855:49 HGB A1C (92975) Comments: PATIENT NOT FASTINGPERFORMED BY: [employer] Nleztx9574 [facility] [id number] Information: [id number] Hemoglobin A1c 8.1 % (Abnormal) Range: 4.8-5.6 Comments: . Pre-diabetes: 5.7 - 6.4 Diabetes: >6.4 Glycemic control for adults with diabetes: <7.0 :30 VITAMIN B-12 (CYANOCOBALAMIN) Comments: PATIENT WAS FASTINGPERFORMED BY: [employer] Vykgpx2723 [facility] [id number] (38173) Vitamin B12 325 pg/mL (Normal) Range: 211-946 27-Ozc-98746:30 CBC (AUTO) (92982) Comments: PATIENT WAS FASTINGPERFORMED BY: [facility] AtomicsSelect [facility]inte6370 [facility] [id number] Platelets 309 {x10E3/uL} (Normal) Range: 150-379 RDW 14.8 % (Normal) Range: 12.3-15.4 MCHC 31.1 g/dL (Abnormal) Range: 31.5-35.7 MCH 25.6 pg (Abnormal) Range: 26.6-33.0 MCV 82 fL (Normal) Range: 79-97 Hematocrit 39.2 % (Normal) Range: 34.0-46.6 Hemoglobin 12.2 g/dL (Normal) Range: 11.1-15.9 RBC 4.77 {x10E6/uL} (Normal) Range: 3.77-5.28 WBC 10.9 {x10E3/uL} (Abnormal) Range: 3.4-10.8 :30 Vitamin D Hydroxy (59059) Comments: PATIENT WAS FASTINGPERFORMED BY: [employer]70 [facility] [id number] Vitamin D, 25-Hydroxy 19.9 ng/mL (Abnormal) Range: 30.0-100.0 Comments: Vitamin D deficiency has been defined by the Olga ofMedicine and an Endocrine Society practice guideline as alevel of serum 25-OH vitamin D less than 20 ng/mL (1,2).The Endocrine Society went on to further define vitamin Dinsufficiency as a level between 21 and 29 ng/mL (2).1. IOM (Olga of Medicine). 2010. Dietary reference intakes for calcium and D. [place]: The National Academies Press.2. Bobo MF, Estrellita STOCKTON, Maddi CALIX, et al. Evaluation, treatment, and prevention of vitamin D deficiency: an Endocrine Society clinical practice guideline. JCEM. 2010; 96(7): 1911-30.; ADDENDA: non-emergent till tomorrows apt :30 LIPID PANEL (34402) Comments: PATIENT WAS FASTINGPERFORMED BY: Doctor.com6370 Ryan [facility] HealthComfyAt[facility] [id number] VLDL Cholesterol Jyoti VLDLCH mg/dL (Normal) Range: [...] CREATININE RATIO Comments: PATIENT WAS FASTINGPERFORMED BY: [employer]70 Ryan [facility] [id number] (83441) AND (67026) Microalb/Creat Ratio 190.8 {mg/g_creat} (Abnormal) Range: 0.0-30.0 Microalbumin, Urine 66.6 ug/mL (Abnormal) Range: 0.0-17.0 Creatinine, Urine 34.9 mg/dL (Normal) Range: 15.0-278.0 :30 METABOLIC PANEL, Comments: PATIENT WAS FASTINGPERFORMED BY: LabCoChilton Memorial HospitalDncqbb8860 [facility] [id number] Information: [id number] COMPREHENSIVE (65047) ALT (SGPT) 6 [iU]/L (Normal) Range: 0-32 [...] (Abnormal) Range: 65-99 :59 Vitamin D Hydroxy (67529) Comments: PATIENT NOT FASTINGPERFORMED BY: Melboss Tyvnut1371 WealthTouchbl[place] [id number]; [address] Vitamin D, 25-Hydroxy 21.4 ng/mL (Abnormal) Range: 30.0-100.0 Comments: Vitamin D deficiency has been defined by the Olga ofK[facility] Springfieldcine and an Endocrine Society practice guideline as alevel of serum 25-OH vitamin D less than 20 ng/mL (1,2).The Endocrine Society went on to further define vitamin Dinsufficiency as a level between 21 and 29 ng/mL (2).1. IOM (Olga of Medicine). 2010. Dietary reference intakes for calcium and D. [place]: The National Academies Press.2. Bobo MF, Estrellita STOCKTON, Maddi CALIX, et al. Evaluation, treatment, and prevention of vitamin D deficiency: an Endocrine Society clinical practice guideline. JCEM. 2010; 96(7):1911-30. :59 LIPID PANEL (99538) Comments: PATIENT NOT FASTINGPERFORMED BY: Melboss Agtnpm1048 [employer] [id number] VLDL Cholesterol Jyoti VLDLCH mg/dL (Normal) Range: [...] B-12 (CYANOCOBALAMIN) Comments: PATIENT NOT FASTINGPERFORMED BY: Melboss Agcqnr8362 [facility]TouchAt[facility] [id number] (82934) Vitamin B12 500 pg/mL (Normal) Range: 211-946 :59 CBC W/AUTO DIFF WBC Comments: PATIENT NOT FASTINGPERFORMED BY: Melboss Klwoaw0931 [facility]althTouchAt[facility] Health Mercy [id number] Information: [id number] (91422) Immature Grans (Abs) 0.0 {x10E3/uL} (Normal) Range: [...] PANEL, COMPREHENSIVE Comments: PATIENT NOT FASTINGPERFORMED BY: BELKYS [facility] Pnmgcn0429 [facility] [id number] (27981) ALT (SGPT) 6 [iU]/L (Normal) Range: 0-32 [...] Range: 65-99 :38 Blood Glucose , Office (51907) Blood Glucose , Office 198 (Normal) :38 HgA1C , Office (49053) HgA1C , Office 9.1 % (Abnormal) Range: 4.6 - 7.1 :40 Allergens, Zone 8 Comments: Test(s) 957202-A704-WyE Cockroach, Bangladeshi; 924213-G332-JfY [place]wood, White; 794705-A448-AmU Sweet Gumwere developed and had performance characteristicsdetermined by [employer]. These tests have not been c leared orapproved by the U.S. Food and Drug Administration. The FDAhas determined that such clearance or approval is notnecessary. These tests are used for clinical purposes.These should not be regarded as investigational or forresearch.Test performed at:[facility] Bjpxwnsvdv17[address] [place], [place] [address] ; handled by jennifer VANG COMMENT Comment [...] NETTLE <0.10 kU/L (Normal) Comments: Performed at: [address] [id number] Director: Loco Ivey MD, Phone: [phone] SHEEP SORREL <0.10 kU/L (Normal) PIGWEED, ROUGH [...] kU/L (Normal) D PTERONYSSINUS <0.10 kU/L (Normal) 25-Xia-23035:40 Immunoglobulin E Comments: Test performed at:[facility] Fhlaaaceqw9968 [place] [address] IMMUNO E 53 {IU/mL} (Normal) Range: 0-100 Comments: Performed at: [address] [id number] Director: Christopher Sullivan PhD, Phone: [phone]; ADDENDA: handled by jennifer 52-Msv-405381:26 HgA1C , Office (84850) HgA1C , Office 9.6 % (Abnormal) Range: 4.6 - 7.1 4-Cvo-439729:31 BNP,B-Type NATRIURETIC PEPTIDE Comments: Test performed at:[facility] Ipdxfxztqg5578 [place] [address] B-TYPE ANDREW PEP 58.8 pg/mL (Normal) Range: 0-100 40-Mod-832523:04 IRON BINDING CAPACITY (TIBC) Comments: PERFORMED BY: [address] [id number] (68208) Iron Saturation 11 % (Abnormal) Range: 15-55 Iron, Serum 47 ug/dL (Normal) Range: 35-155 UIBC 362 ug/dL (Normal) Range: 150-375 Iron Bind.Cap.(TIBC) 409 ug/dL (Normal) Range: 250-450 38-Waq-919395:04 FERRITIN (42226) Comments: PERFORMED BY: [address] [id number] Ferritin, Serum 32 ng/mL (Normal) Range: 15-150 51-Yxq-717993:04 VITAMIN B-12 (CYANOCOBALAMIN) Comments: PERFORMED BY: [employer] Tqscbc1880 [facility] [id number] (99614) Vitamin B12 304 pg/mL (Normal) Range: 211-946 79-Bof-914228:04 Vitamin D Hydroxy (28948) Comments: PERFORMED BY: [employer] Ugklwt3119 [facility] [id number] Vitamin D, 25-Hydroxy 17.5 ng/mL (Abnormal) Range: 30.0-100.0 Comments: Vitamin D deficiency has been defined by the Olga ofMedicine and an Endocrine Society practice guideline as alevel of serum 25-OH vitamin D less than 20 ng/mL (1,2).The Endocrine Society went on to further define vitamin Dinsufficiency as a level between 21 and 29 ng/mL (2).1. IOM (Olga of Medicine). 2010. Dietary reference intakes for calcium and D. [place]: The National Academies Press.2. Bobo MF, Estrellita STOCKTON, Maddi CALIX, et al. Evaluation, treatment, and prevention of vitamin D deficiency: an Endocrine Society clinical practice guideline. JCEM. 2010; 96(7):1911-30. 87-Agl-910980:04 LIPID PANEL (74840) Comments: PERFORMED BY: [employer] Tiqdbc0874 [facility] [id number] VLDL Cholesterol Jyoti VLDLCH mg/dL (Normal) Range: [...] Cholesterol, Total 166 mg/dL (Normal) Range: 100-199 49-Jpv-688440:04 CBC W/AUTO DIFF WBC (55274) Comments: PERFORMED BY: [employer] Mpcxkf6358 [facility] [id number] Immature Grans (Abs) 0.0 {x10E3/uL} (Normal) Range: [...] 3.77-5.28 WBC 7.3 {x10E3/uL} (Normal) Range: 3.4-10.8 84-Spt-985569:04 METABOLIC PANEL, COMPREHENSIVE Comments: PERFORMED BY: LabCoChilton Memorial HospitalNabjei3424 [facility] [id number] (36675) ALT (SGPT) 5 [iU]/L (Normal) Range: 0-32 [...] Glucose, Serum 279 mg/dL (Abnormal) Range: 65-99 78-Nlg-226746:18 HgA1C , Office (27847) HgA1C , Office 8.3 % (Abnormal) Range: 4.6 - 7.1 55-Thj-721065:12 Rapid Flu (62825 x 2) Influenza A Ag negative (Normal) 27-Dwi-100977:43 BNTP (30303) Comments: PATIENT NOT FASTINGPERFORMED BY: LabCoChilton Memorial HospitalNlrxfn3551 [facility] [id number] Information: [id number] B-Type Natriuretic Peptide 67.8 pg/mL (Normal) Range: 0.0-100.0 5-Qny-485843:12 CBCD ALC 1.70 {X10_3/ul} (Normal) Range: 0.83-4.51 [...] A.D.A. criteria. :14 Blood Glucose , Office (79782) Blood Glucose , Office 112 (Normal) :14 HgA1C , Office (55817) HgA1C , Office 7.3 % (Abnormal) Range: 4.6 - 7.1 :45 WESTON Negative (Normal) Comments: Performed at: - Lab[address] [id number] Director: Nick Cali PhD, Phone: [phone] 09-Fgo-311774:45 CBCD ALC 1.65 {X10_3/ul} (Normal) Range: 0.83-4.51 [...] 40 - 59Strong positive >59Performed at: - LabCo[address], [place], [place] [id number] Director: Loco Ivey MD, Phone: [phone] 26-Geo-578125:45 CMP GAP 4 (Abnormal) Range: 5-15 CO2 [...] 7-18 GLU 99 mg/dL (Normal) Range: 70-110 55-Meh-496233:45 CRP < 2.90 mg/L (Normal) Range: 0.0-3.0 Comments: C-Reactive Protein (CRP) provides useful information for thediagnosis, therapy and monitoring of inflammatory processesand associated diseases. For the evaluation of Relative Riskfor Cardiovascular Dise ase, a High Sensitivity CRP (HSCRP)should be ordered. 11-Swo-990304:45 RF < 10.0 {IU/mL} (Normal) :45 SED tSEDRATE 12 mm/h (Normal) Range: 0-30 :45 VITD 30.7 mg/mL (Normal) Comments: Vitamin D 25(OH) Status RangeDeficiency <20 ng/mL (50nmol/L)Insuffciency 20 - 30 ng/mL (50 - 75 nmol/L)Sufficiency 30 - 100 ng/mL (75 - 250 nmol/L)Toxicity >100 ng/mL (>250 nmol/L) :46 Vitamin D Hydroxy (34702) Comments: PATIENT WAS FASTINGPERFORMED BY: General AtomicsMid Missouri Mental Health CenterQvjauy9379 [facility] [id number] Vitamin D, 25-Hydroxy 22.7 ng/mL (Abnormal) Range: 30.0-100.0 Comments: Vitamin D deficiency has been defined by the Olga ofMedicine and an Endocrine Society practice guideline as alevel of serum 25-OH vitamin D less than 20 ng/mL (1,2).The Endocrine Society went on to further define vitamin Dinsufficiency as a level between 21 and 29 ng/mL (2).1. IOM (Olga of Medicine). 2010. Dietary reference intakes for calcium and D. [place]: The National Academies Press.2. Bobo MF, Estrellita NC, Maddi CALIX, et al. Evaluation, treatment, and prevention of vitamin D deficiency: an Endocrine Society clinical practice guideline. JCEM. 2010; 96(7):1911-30. :46 MICROALBUMIN: CREATININE RATIO Comments: PATIENT WAS FASTINGPERFORMED BY: [facility] AtomicsSelect [facility]inte6370 [facility] [id number] (59932) AND (05046) Microalb/Creat Ratio 37.1 {mg/g_creat} (Abnormal) Range: 0.0-30.0 Microalbumin, Urine 29.9 ug/mL (Abnormal) Range: 0.0-17.0 Creatinine, Urine 80.5 mg/dL (Normal) Range: 15.0-278.0 :46 METABOLIC PANEL, COMPREHENSIVE Comments: PATIENT WAS FASTINGPERFORMED BY: [facility]omicsSelect [facility]6370 [facility] [id number] (78019) ALT (SGPT) 7 [iU]/L (Normal) Range: 0-32 [...] Glucose, Serum 141 mg/dL (Abnormal) Range: 65-99 72-Ada-70074:46 LIPID PANEL (45414) Comments: PATIENT WAS FASTINGPERFORMED BY: LabCoChilton Memorial HospitalXqebzf4455 [facility] [id number] LDL/HDL Ratio 2.1 {ratio_units} (Normal) Range: 0.0-3.2 [...] Cholesterol, Total 177 mg/dL (Normal) Range: 100-199 90-Dct-73004:46 CBC, PLATELETS & AUT DIFF Comments: PATIENT WAS FASTINGPERFORMED BY: BELKYS [facility] Armlwh1849 [facility] [id number] Information: [id number] (86493) Hematology Comments: Note: (Normal) Comments: Verified by [...] (CYANOCOBALAMIN) Comments: PATIENT WAS FASTINGPERFORMED BY: [facility] Vqpqam5428 [facility] [id number] (43093) Vitamin B12 254 pg/mL (Normal) Range: 211-946 5-Jnl-749572:10 HgA1C , Office (91755) HgA1C , Office 6.8 % (Normal) Range: 4.6 - 7.1 9-Cwr-449542:10 Blood Glucose , Office (51816) Blood Glucose , Office 146 (Normal) Comments: non-fasting :36 LIPID PANEL (18778) Comments: PATIENT WAS FASTINGPERFORMED BY: Doctor.com6370 [facility] [id number] VLDL Cholesterol Jyoti VLDLCH mg/dL (Normal) Range: [...] MANUAL DIFF Comments: PATIENT WAS FASTINGPERFORMED BY: Doctor.com6370 [facility] [id number] Information: [id number] (68090) Immature Grans (Abs) 0.0 {x10E3/uL} (Normal) Range: [...] PANEL, COMPREHENSIVE Comments: PATIENT WAS FASTINGPERFORMED BY: LabSelect [facility] Pointe6370 [facility] [id number] (10590) ALT (SGPT) 6 [iU]/L (Normal) Range: 0-32 [...] (Abnormal) Range: 65-99 :36 Vitamin D Hydroxy (09481) Comments: PATIENT WAS FASTINGPERFORMED BY: CityIN [facility] [id number] Vitamin D, 25-Hydroxy 17.5 ng/mL (Abnormal) Range: 30.0-100.0 Comments: Vitamin D deficiency has been defined by the [place] ofMedicine and an Endocrine Society practice guideline as alevel of serum 25-OH vitamin D less than 20 ng/mL (1,2).The Endocrine Society went on to further define vitamin Dinsufficiency as a level between 21 and 29 ng/mL (2).1. IOM ([place] of Medicine). 2010. Dietary reference intakes for calcium and D. [place]: The National Academies Press.2. Bobo MF, Estrellita NC, Maddi CALIX, et al. Evaluation, treatment, and prevention of vitamin D deficiency: an Endocrine Society clinical practice guideline. JCEM. 2010; 96(7):1911-30. :36 VITAMIN B-12 (CYANOCOBALAMIN) Comments: PATIENT WAS FASTINGPERFORMED BY: Valensum Nfsckk6792 [facility] [id number] (63605) Vitamin B12 264 pg/mL (Normal) Range: 211-946 :36 IRON (01975) Comments: PATIENT WAS FASTINGPERFORMED BY: Valensum Cmzice9834 [facility] [id number] Iron, Serum 52 ug/dL (Normal) Range: 35-155 57-Ssq-705785:54 HgA1C , Office (33966) HgA1C , Office 7.1 % (Normal) Range: 4.6 - 7.1 :09 VITAMIN B-12 (CYANOCOBALAMIN) Comments: PATIENT WAS FASTINGPERFORMED BY: [facility]6370 [facility] [id number] (50889) Vitamin B12 704 pg/mL (Normal) Range: 211-946 :09 Vitamin D Hydroxy (66196) Comments: PATIENT WAS FASTINGPERFORMED BY: [facility]6370 [facility] [id number] Vitamin D, 25-Hydroxy 21.8 ng/mL (Abnormal) Range: 30.0-100.0 Comments: Vitamin D deficiency has been defined by the [place] ofMedicine and an Endocrine Society practice guideline as alevel of serum 25-OH vitamin D less than 20 ng/mL (1,2).The Endocrine Society went on to further define vitamin Dinsufficiency as a level between 21 and 29 ng/mL (2).1. IOM ([place] of Medicine). 2010. Dietary reference intakes for calcium and D. [place]: The National Academies Press.2. Bobo MF, Estrellita STOCKTON, Maddi CALIX, et al. Evaluation, treatment, and prevention of vitamin D deficiency: an Endocrine Society clinical practice guideline. JCEM. 2010; 96(7):1911-30. :09 MICROALBUMIN: CREATININE RATIO Comments: PATIENT WAS FASTINGPERFORMED BY: [facility]6370 [facility] [id number] (98964) AND (43191) Microalb/Creat Ratio 24.2 {mg/g_creat} (Normal) Range: 0.0-30.0 Microalbumin, Urine 37.1 ug/mL (Abnormal) Range: 0.0-17.0 Creatinine, Urine 153.6 mg/dL (Normal) Range: 15.0-278.0 :09 METABOLIC PANEL, COMPREHENSIVE Comments: PATIENT WAS FASTINGPERFORMED BY: [facility]6370 [facility] [id number] (59067) ALT (SGPT) 9 [iU]/L (Normal) Range: 0-32 [...] Glucose, Serum 150 mg/dL (Abnormal) Range: 65-99 16-Twr-12655:09 CBC WITH MANUAL DIFF Comments: PATIENT WAS FASTINGPERFORMED BY: [facility]6370 [facility] [id number] Information: [id number] (87622) Immature Grans (Abs) 0.0 {x10E3/uL} (Normal) Range: [...] 3.77-5.28 WBC 8.1 {x10E3/uL} (Normal) Range: 3.4-10.8 :09 LIPID PANEL (36740) Comments: PATIENT WAS FASTINGPERFORMED BY: [facility]6370 [facility] [id number] VLDL Cholesterol Jyoti VLDLCH mg/dL (Normal) Range: [...] (Normal) Range: 100-199 :23 HgA1C , Office (94343) HgA1C , Office 7.2 % (Abnormal) Range: 4.6 - 7.1 :08 FOOT MIN 3 VIEWS Radiology Report See [...] Babcock M.D.November 02, 2012 at 3:41:31 PM [id number] Signed GP/GP If you are the referring physician and would like to consult with theradiologist who provided this interpretation, please contact Imani Hayes at [phone]. If this radiologist is unavailable, youwill be directed to another radiologist to assist. If you are a patient with a question regarding this report, pleasecontactyour referring p carlos directly. Professional Interpretation Provided By: Generaytor, Phone , These documents contain legally protected [...] or destructionofthese documents. Dictated on 11/02/121540 by Emma Babcock MDscribed on 11/02/121542 by ITS IMPORTSign by John Babcock MD on 11/02/121543 Sign by: oJhn Babcock MD 63-Ini-741492:33 MICROALBUMIN: CREATININE RATIO Comments: PATIENT WAS FASTINGPERFORMED BY: [facility] DiagnosticsChilton Memorial HospitalLfguoc2220 [facility] [id number] (82167) AND (24182) Microalb/Creat Ratio 31.2 {mg/g_creat} (Abnormal) Range: 0.0-30.0 Microalbumin, Urine 44.7 ug/mL (Abnormal) Range: 0.0-17.0 Creatinine, Urine 143.3 mg/dL (Normal) Range: 15.0-278.0 51-Dvo-130871:33 CBC WITH MANUAL DIFF Comments: PATIENT WAS FASTINGPERFORMED BY: [facility] DiagnosticsChilton Memorial HospitalXarazz1540 [facility] [id number] Information: [id number] (40591) Immature Grans (Abs) 0.0 {x10E3/uL} (Normal) Range: [...] 3.77-5.28 WBC 6.9 {x10E3/uL} (Normal) Range: 3.4-10.8 67-Plh-019327:33 METABOLIC PANEL, COMPREHENSIVE Comments: PATIENT WAS FASTINGPERFORMED BY: LabCoChilton Memorial HospitalOxduym7640 [facility] [id number] (87076) ALT (SGPT) 10 [iU]/L (Normal) Range: 0-32 [...] Glucose, Serum 158 mg/dL (Abnormal) Range: 65-99 91-Zam-653532:33 VITAMIN B-12 (CYANOCOBALAMIN) Comments: PATIENT WAS FASTINGPERFORMED BY: [facility] [employer] [facility] [id number] (63968) Vitamin B12 >1999 pg/mL (Abnormal) Range: 211-946 85-Esu-770467:33 IRON BINDING CAPACITY (TIBC) Comments: PATIENT WAS FASTINGPERFORMED BY: [employer] [facility] [id number] (57735) Iron Saturation 16 % (Normal) Range: 15-55 Iron, Serum 59 ug/dL (Normal) Range: 35-155 UIBC 315 ug/dL (Normal) Range: 150-375 Iron Bind.Cap.(TIBC) 374 ug/dL (Normal) Range: 250-450 87-Cqg-524898:33 FERRITIN (09513) Comments: PATIENT WAS FASTINGPERFORMED BY: [facility] [employer] [facility] [id number] Ferritin, Serum 29 ng/mL (Normal) Range: 15-150 06-Bff-715157:33 HEPATIC FUNCTION PANEL Comments: PATIENT WAS FASTINGPERFORMED BY: [facility] [employer] [facility] [id number] (19175) Bilirubin, Direct 0.12 mg/dL (Normal) Range: 0.00-0.40 29-Ifw-289640:33 LIPID PANEL (87077) Comments: PATIENT WAS FASTINGPERFORMED BY: [facility] [employer] [facility] [id number] VLDL Cholesterol Jyoti VLDLCH mg/dL (Normal) Range: [...] Cholesterol, Total 174 mg/dL (Normal) Range: 100-199 25-Okv-313575:33 Vitamin D Hydroxy (71913) Comments: PATIENT WAS FASTINGPERFORMED BY: [facility] Crybhr4978 [facility] [id number] Vitamin D, 25-Hydroxy 21.3 ng/mL (Abnormal) Range: 30.0-100.0 Comments: Vitamin D deficiency has been defined by the [place] of[place]icine and an Endocrine Society practice guideline as alevel of serum 25-OH vitamin D less than 20 ng/mL (1,2).The Endocrine Society went on to further define vitamin Dinsufficiency as a level between 21 and 29 ng/mL (2).1. IOM ([place] of Medicine). 2010. Dietary reference intakes for calcium and D. [place]: The National Academies Press.2. Bobo MF, Estrellita STOCKTON, Maddi CLAIX, et al. Evaluation, treatment, and prevention of vitamin D deficiency: an Endocrine Society clinical practice guideline. JCEM. 2010; 96(7):1911-30. 39-Jrh-481271:22 HgA1C , Office (75507) HgA1C , Office 6.8 % (Normal) Range: [...] Babcock M.D.August 18, 2012 at 3:19:26 PM [id number] Signed GP/GP If you are the referring physician and would like to consult with theradiologist who provided this interpretation, please contact Imani Hayes at [phone]. If this radiologist is unavailable, youwill be directed to another radiologist to assist. If you are a patient with a question regarding this report, pleasecontactyour referring physician directly. Professional Interpretation Provided By: Generaytor, Phone , These documents contain legally protected [...] Dictated on 08/18/12 1519 by Wild Babcock MDscribed on 08/18/12 1521 by ITS IMPORTSign by John Babcock MD on 08/18/12 1522 Sign by: John Babcock MD 6-Csh-632878:40 BILAT SCRN DIGITAL & CAD Radiology Report [...] Babcock M.D.August 18 3 at 1:37:33 PM [phone] Signed GP/GP If you are the referring physician and would like to consult with theradiologist who provided this interpretation, please contact Sunil louis M.D. at [phone]. If this radiologist is unavailable, youwill be directed to another radiologist to assist. If you are a patient with a question regarding this report, pleasecontactyour referr ing physician directly. Professional Interpretation Provided By: Generaytor, Phone , These documents contain legally protected [...] destructionofthese documents. Dictated on 08/18/12 1337 by Gallito Babcock MDribed on 08/18/12 1359 by ITS IMPORTSign by John Babcock MD on 08/18/12 1400 Sign by: John Babcock MD 3-Dkk-166923:36 VERT FX ASSESS/LAT BONE DEN(H) Radiology Report [...] Babcock M.D.August 20, 2012 at 2:14:56 PM [id number] Signed GP/GP If you are the referring physician and would like to consult with jacqueline moya who provided this interpretation, please contact Imani Hayes at [phone]. If this radiologist is unavailable, youwill be directed to another radiologist to assist. If you are a clarice ent with a question regarding this report, pleasecontactyour referring physician directly. Professional Interpretation Provided By: Generaytor, Phone , These documents con tain legally [...] tionofthese documents. Dictated on 08/20/12 1414 by Shayna ROSAS,Rosaliaranscribed on 08/20/12 1416 by ITS IMPORTSign by Shayna ROSAS,John on 08/20/12 1417 Sign by: John Babcock MD 94-Bnh-88943:10 LIPID PANEL (98150) Comments: PATIENT WAS FASTINGPERFORMED BY: [facility]6370 [facility] [id number] VLDL Cholesterol Jyoti VLDLCH mg/dL (Normal) Range: [...] Cholesterol, Total 183 mg/dL (Normal) Range: 100-199 23-Iej-51653:10 METABOLIC PANEL, COMPREHENSIVE Comments: PATIENT WAS FASTINGPERFORMED BY: Picateerslin6370 [facility] [id number] (34527) ALT (SGPT) 5 [iU]/L (Normal) Range: 0-32 [...] Glucose, Serum 133 mg/dL (Abnormal) Range: 65-99 16-Erv-20739:10 IRON BINDING CAPACITY (TIBC) Comments: PATIENT WAS FASTINGPERFORMED BY: LabCoChilton Memorial HospitalNyqqtx0215 [facility] [id number] (21167) Iron Saturation 15 % (Normal) Range: 15-55 Iron, Serum 53 ug/dL (Normal) Range: 35-155 UIBC 308 ug/dL (Normal) Range: 150-375 Iron Bind.Cap.(TIBC) 361 ug/dL (Normal) Range: 250-450 :10 FERRITIN (41601) Comments: PATIENT WAS FASTINGPERFORMED BY: [facility] Nbgsim5192 [facility] [id number] Ferritin, Serum 25 ng/mL (Normal) Range: 15-150 :10 VITAMIN B-12 (CYANOCOBALAMIN) Comments: PATIENT WAS FASTINGPERFORMED BY: [facility] Kywfan5278 [facility] [id number] (64207) Vitamin B12 258 pg/mL (Normal) Range: 211-946 :10 CBC WITH MANUAL DIFF Comments: PATIENT WAS FASTINGPERFORMED BY: [facility] Pwvvbs5274 [facility] [id number] Information: ADD [id number] AND DRAW FEE [id number] (98065) Immature Grans (Abs) 0.0 {x10E3/uL} (Normal) Range: [...] (Normal) Range: 4.0-10.5 :10 Vitamin D Hydroxy (09209) Comments: PATIENT WAS FASTINGPERFORMED BY: [facility] Enkzdl7915 [address] [id number] Vitamin D, 25-Hydroxy 20.4 ng/mL (Abnormal) Range: 30.0-100.0 Comments: Vitamin D deficiency has been defined by the [place] of[facility] and an Endocrine Society practice guideline as alevel of serum 25-OH vitamin D less than 20 ng/mL (1,2).The Endocrine Society went on to further define vitamin Dinsufficiency as a level between 21 and 29 ng/mL (2).1. IOM ([place] of Medicine). 2010. Dietary reference intakes for calcium and D. [place]: The National Academies Press.2. Bobo MF, Estrellita NC, Maddi CALIX, et al. Evaluation, treatment, and prevention of vitamin D deficiency: an Endocrine Society clinical practice guideline. JCEM. 2010; 96(7):1911-30. :08 IRON (60079) Comments: PATIENT WAS FASTINGPERFORMED BY: [facility] Snygdi4748 [address] [facility] [place] HealthDuin [place] [id number] Iron, Serum 58 ug/dL (Normal) Range: 35-155 1-Brq-392055:08 FERRITIN (45545) Comments: PATIENT WAS FASTINGPERFORMED BY: [facility] Tcgqoc5283 [address] [facility] [place] [id number] Ferritin, Serum 25 ng/mL (Normal) Range: 13-150 3-Rvv-262310:08 VITAMIN B-12 (CYANOCOBALAMIN) Comments: PATIENT WAS FASTINGPERFORMED BY: [facility] Cuknyg3621 [address] [facility] HealthDublin [place] [id number] (56010) Vitamin B12 390 pg/mL (Normal) Range: 211-946 :08 Vitamin D Hydroxy (87017) Comments: PATIENT WAS FASTINGPERFORMED BY: [facility]6370 [facility] [id number] Vitamin D, 25-Hydroxy 25.3 ng/mL (Abnormal) Range: 30.0-100.0 Comments: Vitamin D deficiency has been defined by the [place] ofMedicine and an Endocrine Society practice guideline as alevel of serum 25-OH vitamin D less than 20 ng/mL (1,2).The Endocrine Society went on to further define vitamin Dinsufficiency as a level between 21 and 29 ng/mL (2).1. IOM ([place] of Medicine). 2010. Dietary reference intakes for calcium and D. [place]: The National Academies Press.2. Bobo MF, Estrellita STOCKTON, Maddi CALIX, et al. Evaluation, treatment, and prevention of vitamin D deficiency: an Endocrine Society clinical practice guideline. JCEM. 2010; 96(7):1911-30. :08 METABOLIC PANEL, COMPREHENSIVE Comments: PATIENT WAS FASTINGPERFORMED BY: General AtomicsMid [facility] Mental Health CenterOqawpj4364 [facility] [id number] (44154) ALT (SGPT) 6 [iU]/L (Normal) Range: 0-32 [...] Glucose, Serum 124 mg/dL (Abnormal) Range: 65-99 6-Sgu-927423:08 CBC WITH MANUAL DIFF Comments: PATIENT WAS FASTINGPERFORMED BY: [facility]CoCh[facility] HospitalVvvhhs2973 [facility] [id number] Information: [id number] (85033) Immature Grans (Abs) 0.0 {x10E3/uL} (Normal) Range: [...] 3.77-5.28 WBC 8.2 {x10E3/uL} (Normal) Range: 4.0-10.5 6-Kqc-565133:08 LIPID PANEL (96127) Comments: PATIENT WAS FASTINGPERFORMED BY: [facility]6370 [facility] [id number] VLDL Cholesterol Jyoti VLDLCH mg/dL (Normal) Range: [...] Cholesterol, Total 166 mg/dL (Normal) Range: 100-199 9-Pin-047271:56 HgA1C , Office (30078) HgA1C , Office 7.4 % (Abnormal) Range: 4.6 - 7.1 2-Lvw-810780:56 Blood Glucose , Office (42576) Blood Glucose , Office 142 (Normal) 06-Kfw-085208:40 CBCMD RBCM NORM C+C {NORMAL} (Normal) EOS [...] 4.2-5.4 WBC 11.2 K/mm3 (Abnormal) Range: 4.4-11.0 69-Pfa-967117:40 CMP GAP 7 (Normal) Range: 5-15 CL [...] mg/dL suggests DIABETES MELLITUS per A.D.A. criteria. 72-Szr-44586:04 CHEST WITH CONTRAST Radiology Report See Note [...] Babcock M.D.November 07, 2011 at 1:33:21 PM [phone] Signed GP/GP If you ar e the referring physician and would like to consult with theradiologist who provided this interpretation, please contact Imani Hayes at [phone]. If this radiologist is unavailable, youw ill [...] destructionofthese documents. Dictated on 11/07/11 0823 by Nidhi Babcock MDscribed on 11/07/11 1339 by ITS IMPORTSign by John Babcock MD on 11/07/11 1340 Sign by: John Babcock MD 24-Ptj-314530:41 Pathology Report Comments: PERFORMED BY: KWCYT [facility] Perry Dwyp16563 [facility] [id number] BY: MICHAEL [facility] Ebbbxfz13227 [facility] [id number] Information: [id number] See MATER Comments: Material submitted: .SHAVE BIOPSY LEFT UPPER THIGH NEAR GROINClinical history: .POLYPOID LESION Note (Normal) Diagnosis:SHAVE BIOPSY LEFT UPPER THIGH NEAR GROIN:DERMATOLIPOMA OF THE SKIN..GX11/03/2011 Electronically signed: .Ubaldo Duran MD, PathologistGross description: .RECEIVED IS A CONTAINER LABELE D BLACK,COMFORT AND DESIGNATEDLEFT UPPER THIGH NEAR GROIN. IN FORMALIN IS AN OVOID, YELLOW/PAYTON TISSUEMEASURING 1.8 X 1.3 X 0.9 CM. THE 0.4 CM RESECTION MARGIN IS INKEDGREEN. THE SPECIMEN IS BISECTED AND BOTH HALVES ARE SUBMITTEDIN TWO CASSETTES, A1 AND A2.COR/TMZCPT .[id number] 16-Iku-836733:06 CBC WITH MANUAL DIFF Comments: PATIENT NOT FASTINGPERFORMED BY: CB [facility] Cezcri2687 [facility] [id number] Information: [id number] (90973) Immature Grans (Abs) 0.0 {x10E3/uL} (Normal) Range: [...] 3.77-5.28 WBC 7.9 {x10E3/uL} (Normal) Range: 4.0-10.5 62-Qit-527239:06 LDH (LD) (LACTATE DEHYDROGENASE) Comments: PATIENT NOT FASTINGPERFORMED BY: [facility]6370 [facility] [id number] (99158) LDH 198 [iU]/L (Normal) Range: 0-214 15-Hqz-194402:06 IRON BINDING CAPACITY (TIBC) Comments: PATIENT NOT FASTINGPERFORMED BY: [facility]6370 [facility] [id number] (21221) Iron Saturation 11 % (Abnormal) Range: 15-55 Iron, Serum 46 ug/dL (Normal) Range: 35-155 UIBC 389 ug/dL (Abnormal) Range: 150-375 Iron Bind.Cap.(TIBC) 435 ug/dL (Normal) Range: 250-450 88-Ibh-452886:06 FERRITIN (38587) Comments: PATIENT NOT FASTINGPERFORMED BY: [facility] AtomicsCoChilton Memorial HospitalTqocik1570 [facility] [id number] Ferritin, Serum 12 ng/mL (Abnormal) Range: 13-150 1-Qov-593281:03 HgA1C , Office (83244) HgA1C , Office 7.1 % (Normal) Range: 4.6 - 7.1 :34 CBC WITH MANUAL DIFF (44767) Comments: PATIENT WAS FASTINGPERFORMED BY: [facility]CoCh[facility] HospitalSkpxri5236 [facility] [id number] Immature Grans (Abs) 0.0 {x10E3/uL} (Normal) Range: [...] 3.77-5.28 WBC 8.3 {x10E3/uL} (Normal) Range: 3.4-10.8 6-Uln-332084:11 FECAL OCCULT- Tubes sent home (97341) FECAL OCCULT HGB ASSAY, QUAL, 1-3 SIMULTANEOU positive (Normal) :30 HgA1C , Office (80091) HgA1C , Office 7.3 % (Abnormal) Range: [...] the presence of intrinsic factor blocking antibodies. :09 CBCMD MICRO RARE (Normal) ANISO RARE (Normal) [...] mg/dL suggests DIABETES MELLITUS per A.D.A. criteria. 95-Gxn-170350:09 MIACRE tMICROCREAT 70.2 {mg/g_CRE} (Abnormal) MIALB 76.8 mg/L (Normal) CREU 109.3 mg/dL (Normal) 56-Kzy-060938:09 VITD 23.9 ng/mL (Abnormal) Comments: appt 05-14-11 Range: 30.0-100.0 Comments: Vitamin D deficiency has been defined by the [place] ofMedicine and an Endocrine Society practice guideline as alevel of serum 25-OH vitamin D less than 20 ng/mL (1,2).The Endocrine Society went on to further define vitamin Dinsufficiency as a level between 21 and 29 ng/mL (2).1. IOM ([place] of Medicine). 2010. Dietary reference intakes for calcium and D. [place]: The National Academies Press.2. Bobo VALLES, Estrellita STOCKTON, Maddi CALIX, et al. Evaluation, treatment, and prevention of vitamin D deficiency: an Endocrine Society clinical practice guideline. JCEM. 2010; 96(7): 1911-30.Performed at: [facility] [id number] Director: Charsima Hamilton MD, Phone: [phone] 4-Jwb-832226:21 CHEST WITHOUT CONTRAST Radiology Report See Note [...] a radiologist regarding this report, please jyoti felipe 46S1rewbzwt line @ Dictated on 02/15/111125 by Boone Alarcon DOribed on 02/15/111732 by ITS IMPORTSign by Emery Alarcon DO on 02/15/111733 Sign by: Emery Alarcon DO 8-Vlm-100486:30 HgA1C , Office (38424) HgA1C , Office 7.4 % (Abnormal) Range: 4.6 - 7.1 0-Rrc-412123:30 Blood Glucose , Office (91866) Blood Glucose , Office 153 (Normal) 2-Irz-730620:07 CHEST, PA AND LATERAL Radiology Report See [...] on 08/17/102122 Sign by: ANNAMARIE WOODWARD MD 07-Jyv-613183:01 HgA1C , Office (27285) HgA1C , Office 7.9 % (Abnormal) Range: 4.6 - 7.1 58-Iqn-940728:01 Blood Glucose , Office (58938) Blood Glucose , Office 133 (Normal) :52 [...] CREAT 107.1 mg/dL (Normal) :52 VIT D,25 37175 19.0 ng/mL (Abnormal) Range: 32.0-100.0 Comments: Recent studies consider the lower limit of 32.0 ng/mL to helena threshold for optimal health.Sunday BETTENCOURT. J Nutr. 2004;135(2):317-22.Performed at: [facility] [place] [id number] [place], [place] [address] 296Lab Director: Charisma Hamilton MD, Phone: [phone] VITAMIN B12 447 pg/mL (Normal) Range: 254-1320 Comments: There is a low frequency possibility that high titers ofintrinsic blocking antibodies may not be completely inactivated during the reaction pretreatment stepof this testing method. If test results are i n conflictwith the clinical diagnosis, patient should be testedfor the presence of intrinsic factor blocking antibodies. 62-Fhj-225374:02 BILAT SCRN DIGITAL & CAD Radiology Report [...] on 04/05/10 0305 Sign by: KEYA TREJO 61-Cub-380419:02 DEXA BONE DENSITY STUDY (HP) Radiology Report See Note (Normal) Comments: CLINICAL:Female, 69 years old. The patient is postmenopausal. EXAMINATION:DUAL ENERGY X-RAY ABSORPTIOMETRY / DEXA. TECHNIQUE:Bone Mineral Density (BMD) measurements of lumbar spine and bila teralhipswer e obtained using a [employer] scanner.. COMPARISON:Comparison is made with prior examination [...] ation [email or web address] Dictated on 04/04/10 1014 by Nidhi Babcockscribed on 04/04/10 1137 by ITS IMPORTSign by John Babcock on 04/04/10 1138 Sign by: John Babcock 37-Bhh-21394:28 HgA1C , Office (29712) HgA1C , Office 8.2 % (Abnormal) Range: 4.6 - 7.1 :28 Blood Glucose , Office (08420) Blood Glucose , Office 205 (Normal) :27 [...] CHOL 169 mg/dL (Normal) Comments: <200 mg/dL Omlmwncot129-432 mg/dL Borderline>240 mg/dL High Risk HDL 24 [...] the presence of intrinsic factor blocking antibodies. 6-Ghw-552722:47 CHEST WITHOUT CONTRAST Radiology Report See Note (Normal) Comments: Exam Number: [id number] CT SCAN OF THE THORAX Multiple axial [...] unchanged as well. Reported By: JOHN BABCOCK 26-Ane-116741:27 VITAMIN B-12 (CYANOCOBALAMIN) Comments: PATIENT NOT FASTINGPERFORMED BY: Melboss Kcshte9768 InnovitiDublin [place] [id number] (64356) Vitamin B12 338 pg/mL (Normal) Range: 211-946 Comments: Please note reference interval change 35-Qog-187510:27 Vitamin D Hydroxy (43245) Comments: PATIENT NOT FASTINGPERFORMED BY: [facility] LabAlegríarp Urrwkl7340 Ryan RoadDublin [place] [id number] Vitamin D, 25-Hydroxy 17.2 ng/mL (Abnormal) Range: 32.0-100.0 Comments: Recent studies consider the lower limit of 32.0 ng/mL to be athreshold for optimal health.Sunday BETTENCOURT. J Nutr. 2004;135(2):317-22. :27 CBC WITH MANUAL DIFF Comments: PATIENT NOT FASTINGPERFORMED BY: [facility] DiagnosticsChilton Memorial HospitalWdnymy3601 [facility] [id number] Information: [id number] (36763) Baso (Absolute) 0.0 {x10E3/uL} (Normal) Range: 0.0-0.2 [...] 3.80-5.10 WBC 7.3 {x10E3/uL} (Normal) Range: 4.0-10.5 24-Kco-233062:27 METABOLIC PANEL, COMPREHENSIVE Comments: PATIENT NOT FASTINGPERFORMED BY: [facility]6370 [facility] [id number] (30199) ALT (SGPT) 7 [iU]/L (Normal) Range: 0-40 [...] Glucose, Serum 120 mg/dL (Abnormal) Range: 65-99 :38 Blood Glucose , Office (38688) Blood Glucose , Office 133 (Normal) :57 [...] CHOL 186 mg/dL (Normal) Comments: <200 mg/dL Nzahqgdgb843-276 mg/dL Borderline>240 mg/dL High Risk 03-Qee-56389:57 LIVER ALT 9 U/L (Abnormal) Range: 12-78 D BILI 0.10 mg/dL (Normal) Range: 0.00-0.30 T BILI 0.20 mg/dL (Normal) Range: 0.00-1.00 ALB 3.7 g/dL (Normal) Range: 3.4-5.0 ALK P 51 U/L (Normal) Range: 50-136 AST 6 U/L (Abnormal) Range: 15-37 T PROT 7.3 g/dL (Normal) Range: 6.4-8.2 80-Rtw-230127:17 KNEE,4 OR MORE VIEWS (MT) Radiology Report See Note (Normal) Comments: Exam Number: [id number] CLINICAL:Medial pain X-RAY EXAMINATION RIGHT KNEE TECHNIQUE: [...] Report See Note (Normal) Comments: Exam Number: [id number] NONCONTRAST CHEST CT Comparison is made with [...] difficile Toxins Negative (Normal) Comments: PERFORMED BY: [facility] [id number] :51 A+B, EIA :51 Ova + Parasite Exam Comments: PERFORMED BY: [facility] [id number] Ova + Parasite Exam Final report (Normal) Comments: These results were obtained using wet preparation(s) and trichromestained smear. This test does not include testing for Cryptosporidiumparvum, Cyclospora, or Microsporidia. Result 1 NOCP (Normal) Comments: No ova, cysts, or parasites seen. :51 Stool Culture Comments: Clinical Information: SRC:ST PERFORMED BY: [facility] [id number] Campylobacter Culture Final report (Normal) E coli Shiga Toxin EIA Negative (Normal) Result 1 NCI (Normal) Comments: No Campylobacter species isolated. Result 1 NSS (Normal) Comments: No Salmonella or Shigella recovered. Salmonella/Shigella Screen Final report (Normal) :51 White Blood Cells (WBC), Comments: PERFORMED BY: [facility] [id number] Stool Result 1 NWBC (Normal) Comments: No white blood cells seen. White Blood Cells (WBC), Final report (Normal) Comments: Reference Range: None Seen Stool :52 CBC With Differential/Platelet Comments: PATIENT WAS FASTINGPERFORMED BY: [employer] [facility] [id number] Baso (Absolute) 0.0 {x10E3/uL} (Normal) Range: 0.0-0.2 [...] 11.7-15.0 WBC 5.2 {x10E3/uL} (Normal) Range: 4.0-10.5 97-Mxx-474113:52 Comp. Metabolic Panel (14) Comments: PATIENT WAS FASTINGPERFORMED BY: [facility] HospitalMnjwev8167 [facility] [id number] A/G Ratio 1.6 (Normal) Range: 1.1-2.5 Albumin, [...] Glucose, Serum 145 mg/dL (Abnormal) Range: 65-99 94-Pej-641893:52 Lipid Panel With LDL/HDL Comments: PATIENT WAS FASTINGPERFORMED BY: [employer] [id number] Ratio Cholesterol, Total 135 mg/dL (Normal) Range: [...] pg/mL (Normal) Comments: PATIENT WAS FASTINGPERFORMED BY: [facility] [id number] 0:52 Range: 211-911 Vitamin D, 25-Hydroxy 13.6 ng/mL Comments: PATIENT WAS FASTINGPERFORMED BY: [facility] Gdztfw2138 [address] [place] [id number] 0:52 (Abnormal) Range: 32.0-100.0 Comments: Recent studies consider the lower limit of 32.0 ng/mL to be athreshold for optimal health.Sunday BETT[employer]OURT. J Nutr. 2004;135(2):317-22. :32 HgA1C , Office (50108) HgA1C , Office 6.9 % (Normal) Range: 4.6 - 7.1 :32 Blood Glucose , Office (15938) Blood Glucose , Office 179 (Normal) 83-Vjy-534365:25 ABDOMEN LIMITED US () Radiology Report See Note (Normal) Comments: Exam Number: [id number] CLINICAL:Abdominal pain. LIMITED ABDOMINAL ULTRASOUND COMPARISON:None. FINDINGS: [...] of cholecystitis. Reported By: HALIMA TURNER M.D. 8-Dda-630649:35 Urinalysis, Office (01075) UA - BILIRUBIN Moderate (Normal) UA - [...] Panel (14) Comments: PATIENT NOT FASTINGPERFORMED BY: [facility] Kqfuhy7530 [place] [id number] A/G Ratio 1.3 (Normal) Range: 1.1-2.5 Albumin, [...] Panel (7) Comments: PATIENT NOT FASTINGPERFORMED BY: [facility] Bdamrh3104 [facility] [id number] Bilirubin, Direct 0.17 mg/dL (Normal) Range: 0.00-0.40 [...] g/dL (Normal) Range: 6.4-8.2 :27 VIT D,25 32487 16.4 ng/mL (Abnormal) Comments: ORDERED LIPID,LIVER ALSO Range: 32.0-100.0 Comments: Recent studies consider the lower limit of 32.0 ng/mL to helena threshold for optimal health.Sunday [employer]. J Nutr. 2004;135(2):317-22.Performed At: [address] [id number] :27 VITAMIN B12 430 pg/mL (Normal) Comments: ORDERED LIPID,LIVER ALSO Range: 254-1320 26-Uqf-568974:01 BRAIN/HEAD W/WO CONTRAST Radiology Report See Note (Normal) Comments: Exam Number: [id number] CT OF THE HEAD WITH AND WITHOUT CONTRAST [id number] woman who has had vague symptoms of [...] 02, 2008. Reported By: THANH ANNE M.D. 51-Tin-62956:51 CBCD,SMEAR DIFF CELLS COUNTED 100 (Normal) EOS [...] mg/dL (Normal) Range: 0.00-0.30 :51 VIT D,25 30085 6.3 ng/mL (Abnormal) Range: 32.0-100.0 Comments: Recent studies consider the lower limit of 32.0 ng/mL to helena threshold for optimal health.Sunday [employer]. J Nutr. 2004;135(2):317-22.Performed At: [address] [id number] :51 VITAMIN B12 301 pg/mL (Normal) Range: 211-911 :43 CHEST WITHOUT CONTRAST Radiology Report See Note (Normal) Comments: Exam Number: [id number] CLINICAL: Nodules CT CHEST WITHOUT CONTRAST COMPARISON:April [...] cardiopulmonary disease Reported By: RIO KAY M.D. 33-Ped-681244:13 HgA1C , Office (55649) HgA1C , Office 7.5 % (Abnormal) Range: 4.6 - 7.1 13-Ocy-789260:13 Blood Glucose , Office (37121) Blood Glucose , Office 203 (Normal) Antiparietal Cell 2.2 {Units} Comments: PERFORMED BY: [facility] [id number] 0:04 Antibody (Normal) Range: 0.0-20.0 Comments: Negative 0.0 - 20.0 Equivocal 20.1 - 24.9 Positive >24.9 . Parietal Cell Antibodies are found in 90% of patients with pernicious anemia and 30% of first degree relatives with pernicious anemia. 26-Nwv-597228:04 CBC With Differential/Platelet Comments: PERFORMED BY: [facility] [id number] Baso (Absolute) 0.0 {x10E3/uL} Range: 0.0-0.2 (Normal) [...] Factor Abs, Negative (Normal) Comments: PERFORMED BY: [facility] [id number] 0:04 Serum Vitamin B12 472 pg/mL (Normal) Comments: PERFORMED BY: [address] [id number] 0:04 Range: 211-911 :32 Fecal Occult Blood , Office (03430) Fecal Occult Blood Negative (Normal) , Office Ferritin, Serum 21 ng/mL (Normal) Comments: PATIENT NOT FASTINGPERFORMED BY: [facility] [id number] :21 Range: 10-291 Folate (Folic >24.0 ng/mL (Normal) Comments: PATIENT NOT FASTINGPERFORMED BY: [facility] [id number] :21 Acid), Serum Comments: Indeterminate: 3.4 - 5.4 Deficient: <3.4 :21 Iron and TIBC Comments: PATIENT NOT FASTINGPERFORMED BY: [facility] elmenus [facility] [id number] Iron Bind.Cap.(TIBC) 377 ug/dL (Normal) Range: 250-450 Iron Saturation 13 % (Abnormal) Range: 15-55 Iron, Serum 49 ug/dL (Normal) Range: 35-155 UIBC 328 ug/dL (Normal) Range: 150-375 LDH 145 [iU]/L (Normal) Comments: PATIENT NOT FASTINGPERFORMED BY: [facility] [id number] :21 Range: 100-250 Reticulocyte Count 2.1 % (Normal) Comments: PATIENT NOT FASTINGPERFORMED BY: [facility]rum1676 [facility] [id number] :21 Range: 0.5-3.0 Vitamin B12 182 pg/mL Comments: PATIENT NOT FASTINGPERFORMED BY: BELKYS [facility] Vukoeb0577 [facility] [id number] :21 (Abnormal) Range: 211-911 :33 HgA1C , Office (00475) Comments: done>Wf. HgA1C , Office 6.8 % (Normal) Range: 4.6 - 7.1 :33 Blood Glucose , Office (70532) Comments: done>Wf. Blood Glucose , Office 150 [...] 47-70 WBC 6.1 K/mm3 (Normal) Range: 4.4-11.0 :06 LIPID Comments: SEND A COPY OF THE [...] mg/dL VLDL 54 mg/dL (Abnormal) Range: 5-40 77-Frm-696849:06 LIVER Comments: SEND A COPY OF THE LIPID AND LIVER RESULTSONLY. JLG ALB 3.6 g/dL (Normal) Range: 3.4-5.0 ALK P 47 U/L (Abnormal) Range: 50-136 ALT 25 U/L (Abnormal) Range: 30-65 AST 14 U/L (Abnormal) Range: 15-37 D BILI 0.06 mg/dL (Normal) Range: 0.00-0.30 T BILI 0.31 mg/dL (Normal) Range: 0.00-1.00 T PROT 6.7 g/dL (Normal) Range: 6.4-8.2 33-Ivt-178202:27 BILAT SCRN DIGITAL & CAD Radiology Report See Note (Normal) Comments: Exam Number: [id number] MAMMOGRAM, BILATERAL SCREENING DIGITAL AND CAD HISTORYRoutine [...] kailash werealso examined with computer-aided detection software ([employer], [employer] Reported By: KEYA TREJO M.D. 38-Vel-115016:27 DEXA BONE DENSITY STUDY (HP) Radiology Report See Note (Normal) Comments: Exam Number: [id number] BONE DENSITOMETRY HISTORYPostmenopausal. TECHNIQUE Bone densitometry of the lumbar spine and left hip was performed. Thebest criteria for evaluation of osteoporosis is the T- value, whichrepresents the comparison of the patient's bone mass to an expectedpeak bone mass. For most patients, the mean T-value of L1 through L4is used to evaluate the lumbar spine. Based on the [facility] WorldHealth Organization classifications, the hip is evaluated [...] left hip. Reported By: KEYA TREJO M.D. 09-Cav-870270:46 HgA1C , Office (89441) HgA1C , Office 6.7 % (Normal) Range: 4.6 - 7.1 85-Tbq-342341:46 Blood Glucose , Office (14487) Blood Glucose , Office 170 (Normal) :46 [...] Report See Note (Normal) Comments: Exam Number: [id number] RIGHT KNEE CLINICAL INFORMATIONKnee pain. Standing AP [...] Report See Note (Normal) Comments: Exam Number: [id number] CT CHEST NONCONTRAST CLINICAL STATEMENTFollow of lung [...] and esophagus. Reported By: RICHARD CANADA M.D. :33 HgA1C , Office (71295) HgA1C , Office 6.5 % (Normal) Range: 4.6 - 7.1 :33 Blood Glucose , Office (37258) Blood Glucose , Office 89 (Normal) :34 [...] Range: 6.4-8.2 :17 Blood Glucose , Office (64405) Blood Glucose , Office 175 (Normal) :41 [...] Report See Note (Normal) Comments: Exam Number: [id number] CT SCAN OF CHEST HISTORYCough. Consecutive axial [...] is suggested. Reported By: KEYA TREJO M.D. :45 HgA1C , Office (30447) Comments: [facility] HgA1C , Office 6.6 % (Normal) Range: 4.6 - 7.1 :45 Blood Glucose , Office (26733) Comments: [facility] Blood Glucose , Office 105 (Normal) [...] Report See Note (Normal) Comments: Exam Number: [id number] CHEST PA AND LATERAL STATEMENTCough and pneumonia. [...] CHIVO MONIQUE M.D. :41 HgA1C , Office (39718) HgA1C , Office 6.8 % (Normal) Range: 4.6 - 7.1 :41 Blood Glucose , Office (26764) Blood Glucose , Office 126 (Normal) 45-Kfq-306471:11 CBCD,SMEAR DIFF CELLS COUNTED 100 (Normal) EOS [...] 47-70 WBC 7.4 K/mm3 (Normal) Range: 4.4-11.0 47-Sve-637609:11 COMP METABOLIC A/G 1.1 {RATIO} (Normal) Range: [...] T PROT 7.1 g/dL (Normal) Range: 6.4-8.2 40-Rtw-197780:11 COMPLETE UA BACTERIA 0 SEEN {/hpf} (Normal) [...] (Normal) Range: 0-5 Comments: Result: 0-5 SEEN 62-Wrs-479293:11 MICROALBUMIN,UR 9.1 mg/L (Normal) 21-Cfj-660274:11 PFLIP CHOL 141 mg/dL (Normal) Comments: <200 [...] mg/dL VLDL 58 mg/dL (Abnormal) Range: 5-40 62-Vjr-531004:11 TSH 0.85 {uIU/mL} (Normal) Range: 0.34-4.82 :11 HgA1C , Office (22246) HgA1C , Office 6.7 % (Normal) Range: 4.6 - 7.1 :11 Blood Glucose , Office (41735) Blood Glucose , Office 153 (Normal) Plan of Care Name Dates Details Instructions Bronchitis : *URI Treatment Indication: Bronchitis Bronchitis : *URI Symptoms Indication: Bronchitis Bronchitis : *Antibiotic Usage Education - Female Indication: Bronchitis Nonsmoker : Eprescribed prescriptions (G8553) Indication: Nonsmoker Diabetes mellitus type II, controlled : Follow up in 3 months Indication: Diabetes mellitus type II, controlled Asthma : Reviewed [employer] 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 Indication: Asthma Coronary artery disease : Reviewed 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 Indication: Coronary artery disease Hypertensive heart disease without heart failure : HTN/CAD Red Flags Indication: Hypertensive heart disease without heart failure ATRIAL FIBRILLATION (Renamed from A-fib) : Reviewed 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 Indication: ATRIAL FIBRILLATION (Renamed from A-fib) Type 2 diabetes mellitus, uncontrolled : Follow up in 3 months Indication: Type 2 diabetes mellitus, uncontrolled Coronary artery disease : Reviewed 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 Indication: Coronary artery disease Hypertensive heart [...] heart failure Coronary artery disease : Reviewed 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 Indication: Coronary artery disease Diabetes mellitus [...] ATRIAL FIBRILLATION (Renamed from A-fib) : Reviewed 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 Indication: ATRIAL FIBRILLATION (Renamed from A-fib) [...] ATRIAL FIBRILLATION (Renamed from A-fib) : Reviewed 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 Indication: ATRIAL FIBRILLATION (Renamed from A-fib) Type 2 diabetes mellitus, uncontrolled : Follow up in 3 months Indication: Type 2 diabetes mellitus, uncontrolled Gout, arthritis : Reviewed Lab Indication: Gout, arthritis Asthma : Reviewed 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 Indication: Asthma Type 2 diabetes mellitus, uncontrolled : *Diabetes Education Indication: Type 2 diabetes mellitus, uncontrolled Coronary artery disease : Reviewed 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 Indication: Coronary artery disease Mixed dyslipidemia [...] Indication: Asthma Coronary artery disease : Reviewed 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 Indication: Coronary artery disease Hypertensive heart [...] meninges : Follow up on Friday with [facility] Indication: Benign neoplasm of cerebral meninges Type [...] : Follow up in 10 days with [facility] Indication: Cough Laryngitis : Laryngitis Education Indication: [...] pelvic and bimanual performed Planned Observations TSH (49824)Indication: Diabetes mellitus type II, controlled On: :15 Request URINALYSIS, W/ MICRO (20159)Indication: Diabetes mellitus type II, controlled On: :15 Request MICROALBUMIN: CREATININE RATIO (09720) AND (53966)Indication: Diabetes mellitus type II, controlled On: :15 Request METABOLIC PANEL, COMPREHENSIVE (89482)Indication: Diabetes mellitus type II, controlled On: :15 Request CBC W/AUTO DIFF WBC (07825)Indication: Diabetes mellitus type II, controlled On: :15 Request LIPOPROTEIN, BLD, BY NMR (56694)Indication: Diabetes mellitus type II, controlled On: 9-Zlo-874662:15 Request TSH (12683)Indication: ATRIAL FIBRILLATION (Renamed from A-fib) On: 10-Tyk-514440:16 Request URINALYSIS, W/ MICRO (92090)Indication: Diabetes mellitus type II, controlled On: 70-Atn-172960:16 Request MICROALBUMIN: CREATININE RATIO (58323) AND (80210)Indication: Diabetes mellitus type II, controlled On: 33-Cmq-676507:16 Request METABOLIC PANEL, COMPREHENSIVE (63373)Indication: Diabetes mellitus type II, controlled On: 55-Vrh-663574:16 Request LIPOPROTEIN, BLD, BY NMR (94936)Indication: Diabetes mellitus type II, controlled On: 43-Wiu-985744:16 Request LIPID PANEL (99007)Indication: Diabetes mellitus type II, controlled On: 43-Mzw-772757:16 Request CBC W/AUTO DIFF WBC (65890)Indication: Diabetes mellitus type II, controlled On: 81-Jcw-431641:15 Request VITAMIN B-12 (CYANOCOBALAMIN) (08007)Indication: Other vitamin B12 deficiency anemia On: 6-Xuz-606097:50 Request TSH (24981)Indication: ATRIAL FIBRILLATION (Renamed from A-fib) On: 8-Bfr-528325:50 Request URINALYSIS, W/ MICRO (96229)Indication: Hypertensive heart disease without heart failure On: 5-Bzv-090015:49 Request MICROALBUMIN: CREATININE RATIO (13660) AND (81559)Indication: Hypertensive heart disease without heart failure On: 6-Qcb-679968:49 Request METABOLIC PANEL, COMPREHENSIVE (41475)Indication: Hypertensive heart disease without heart failure On: 3-Rkh-545104:49 Request CBC W/AUTO DIFF WBC (41373)Indication: Hypertensive heart disease without heart failure On: 2-Xam-582991:49 Request CALCIFEDIOL (67331)Indication: Vitamin D deficiency, unspecified On: 9-Qxp-624244:49 Request LIPID PANEL (45805)Indication: Mixed dyslipidemia On: 2-Djw-669443:49 Request URINALYSIS, W/ MICRO (59381)Indication: Type 2 diabetes mellitus, uncontrolled On: :23 Request MICROALBUMIN: CREATININE RATIO (70723) AND (84261)Indication: Type 2 diabetes mellitus, uncontrolled On: 09-Zry-816091:23 Request HEMOGLOBIN GLYCLATED (HGB A1C) (50961)Indication: Type 2 diabetes mellitus, uncontrolled On: 01-Ryh-311477:03 Request HgA1C , Office (79499)Indication: Type 2 diabetes mellitus, uncontrolled On: 57-Frz-255774:46 Request Vitamin D Hydroxy (82289)Indication: Vitamin D deficiency, unspecified On: 85-Lfg-279354:16 Request VITAMIN B-12 (CYANOCOBALAMIN) (93156)Indication: Other vitamin B12 deficiency anemia On: 55-Hxh-332511:16 Request CBC with auto diff (39477)Indication: Iron deficiency anemia, unspecified On: 76-Bfe-908382:15 Request LIPID PANEL (62199)Indication: Mixed dyslipidemia On: 89-Qjq-598815:15 Request METABOLIC PANEL, COMPREHENSIVE (71647)Indication: Type 2 diabetes mellitus, uncontrolled On: 24-Yxp-001632:15 Request CBC W/AUTO DIFF WBC (54485)Indication: Iron deficiency anemia, unspecified On: 61-Gln-231373:44 Request URINALYSIS, W/ MICRO (70198)Indication: Heart disease, hypertensive, malignant, without heart failure On: 45-Oks-051647:44 Request METABOLIC PANEL, COMPREHENSIVE (10431)Indication: Heart disease, hypertensive, malignant, without heart failure On: 03-Vhe-386097:44 Request MICROALBUMIN: CREATININE RATIO (36852) AND (59195)Indication: Heart disease, hypertensive, malignant, without heart failure On: 08-Jxi-697762:44 Request IRON (90309)Indication: Iron deficiency anemia, unspecified On: 73-Iey-863452:44 Request CBC, Platelets & Auto Diff (00318)Indication: SOB On: 7-Elb-182223:09 Request Renal function Panel (90173)Indication: SOB On: 4-Hrh-736319:09 Request Vitamin D Hydroxy (34709)Indication: Vitamin D deficiency, unspecified On: 03-Geq-782553:04 Request VITAMIN B-12 (CYANOCOBALAMIN) (06356)Indication: Other vitamin B12 deficiency anemia On: 31-Mtn-987666:04 Request METABOLIC PANEL, COMPREHENSIVE (17119)Indication: Type 2 diabetes mellitus, uncontrolled On: 37-Pmc-283772:04 Request IRON (44189)Indication: Iron deficiency anemia, unspecified On: 21-Cel-748745:59 Request IRON (92744)Indication: Iron deficiency anemia, unspecified On: 64-Hrh-835782:18 Request CBC WITH MANUAL DIFF (61827)Indication: Iron deficiency anemia, unspecified On: 19-Zjy-401488:43 Request METABOLIC PANEL, COMPREHENSIVE (88998)Indication: Hypertensive heart disease without heart failure On: 73-Tor-761938:43 Request CBC with manual diff (97035)Indication: Anemia On: :53 Request Comments: recheck in 3 months Ferritin (97427)Indication: Anemia On: :53 Request Iron Binding Capacity (TIBC) (78050)Indication: Anemia On: :53 Request Iron (11788)Indication: Anemia On: :53 Request LIPID PANEL (74121)Indication: Mixed dyslipidemia On: 82-Mku-735731:43 Request IRON (73329)Indication: Iron deficiency anemia, unspecified On: 11-Hbn-081065:35 Request Vitamin D Hydroxy (63922)Indication: Vitamin D deficiency, unspecified On: 2-Cvb-236130:14 Request METABOLIC PANEL, COMPREHENSIVE (73297)Indication: Type 2 diabetes mellitus, uncontrolled On: 4-Mkl-734523:13 Request IRON BINDING CAPACITY (TIBC) (27571)Indication: Iron deficiency anemia, unspecified On: 3-Soz-458112:10 Request FERRITIN (97227)Indication: Iron deficiency anemia, unspecified On: 2-Hpk-066091:10 Request IRON (11301)Indication: Iron deficiency anemia, unspecified On: 1-Wnc-895400:10 Request MICROALBUMIN: CREATININE RATIO (66477) AND (19290)Indication: Type 2 diabetes mellitus, uncontrolled On: 7-Vfd-819278:58 Request METABOLIC PANEL, COMPREHENSIVE (55826)Indication: Type 2 diabetes mellitus, uncontrolled On: 8-Dba-742761:58 Request CBC WITH MANUAL DIFF (00935)Indication: Type 2 diabetes mellitus, uncontrolled On: 2-Jji-930309:58 Request Vitamin D Hydroxy (99563)Indication: Vitamin D deficiency, unspecified On: 7-Iin-838312:58 Request VITAMIN B-12 (CYANOCOBALAMIN) (30670)Indication: Other vitamin B12 deficiency anemia On: 1-Tvy-195519:58 Request LIPID PANEL (85126)Indication: Mixed dyslipidemia On: : Request METABOLIC PANEL, COMPREHENSIVE (43508)Indication: Hypertension On: :00 Request CBC WITH MANUAL DIFF (70294)Indication: Other vitamin B12 deficiency anemia On: : Request VITAMIN D, 1, 25-DIHYDROXY (18628)Indication: Vitamin D deficiency, unspecified On: : Request Vitamin D Hydroxy (47005)Indication: Vitamin D deficiency, unspecified On: : Request LIPID PANEL (12212)Indication: Mixed dyslipidemia On: : Request METABOLIC PANEL, COMPREHENSIVE (26622)Indication: Diabetes mellitus type II, controlled On: : Request CBC WITH MANUAL DIFF (67098)Indication: Other vitamin B12 deficiency anemia On: : Request MICROALBUMIN: CREATININE RATIO (88192) AND (16750)Indication: Diabetes mellitus type II, controlled On: : Request VITAMIN B-12 (CYANOCOBALAMIN) (06199)Indication: Other vitamin B12 deficiency anemia On: :29 Request HEMOGLOBIN GLYCLATED (HGB A1C) (72110)Indication: Diabetes mellitus type II, controlled On: : Request LIPID PANEL (12630)Indication: Mixed dyslipidemia On: :16 Request METABOLIC PANEL, COMPREHENSIVE (48961)Indication: Type 2 diabetes mellitus, uncontrolled On: :15 Request CBC WITH MANUAL DIFF (87605)Indication: Type 2 diabetes mellitus, uncontrolled On: :15 Request MICROALBUMIN: CREATININE RATIO (21517) AND (77122)Indication: Type 2 diabetes mellitus, uncontrolled On: :15 Request VITAMIN B-12 (CYANOCOBALAMIN) (09519)Indication: Other vitamin B12 deficiency anemia On: :15 Request Vitamin D Hydroxy (69327)Indication: Vitamin D deficiency, unspecified On: :15 Request HgA1C , Office (13797)Indication: Type 2 diabetes mellitus, uncontrolled On: 75-Tyl-450801:38 Request VITAMIN B-12 (CYANOCOBALAMIN) (80397)Indication: Other vitamin B12 deficiency anemia On: :55 Request LIPID PANEL (06210)Indication: Mixed dyslipidemia On: :55 Request METABOLIC PANEL, COMPREHENSIVE (64864)Indication: Heart disease, hypertensive, malignant, without heart failure On: :53 Request CBC WITH MANUAL DIFF (02455)Indication: Diverticulitis On: :53 Request LEUKOCYTE COUNT, FECAL (98830)Indication: Diarrhea On: :47 Request C.Difficile, Stool (54232)Indication: Diarrhea On: :47 Request BRO CULTURE-STOOL (37140)Indication: Diarrhea On: :47 Request Metabolic Panel, Comprehensive (14469)Indication: Abdominal pain, unspecified abdominal location On: :46 Request HEPATIC FUNCTION PANEL (39580)Indication: Abdominal pain, unspecified abdominal location On: :46 Request Bilirubin, Direct (43141)Indication: Abdominal pain, unspecified abdominal location On: :44 Request Bilirubin, total (55537)Indication: Abdominal pain, unspecified abdominal location On: :44 Request CBC WITH MANUAL DIFF (49333)Indication: Other vitamin B12 deficiency anemia On: :15 Request VITAMIN B-12 (CYANOCOBALAMIN) (34330)Indication: Other vitamin B12 deficiency anemia On: :15 Request LIPID PANEL (24586)Indication: Mixed dyslipidemia On: :14 Request METABOLIC PANEL, COMPREHENSIVE (81242)Indication: Heart disease, hypertensive, malignant, without heart failure On: 75-Uec-748924:14 Request Vitamin D Hydroxy (42033)Indication: Vitamin D deficiency, unspecified On: :06 Request CBC, PLATELETS & AUT DIFF (07500)Indication: Other vitamin B12 deficiency anemia On: :45 Request VITAMIN B-12 (CYANOCOBALAMIN) (04314)Indication: Other vitamin B12 deficiency anemia On: :45 Request HEPATIC FUNCTION PANEL (25415)Indication: Mixed dyslipidemia On: :44 Request LIPID PANEL (49589)Indication: Mixed dyslipidemia On: :44 Request Vitamin D Hydroxy (95480)Indication: vit d deficiency On: :33 Request Vitamin D Hydroxy (27109) On: : Request VITAMIN B-12 (CYANOCOBALAMIN) (71285)Indication: Other vitamin B12 deficiency anemia On: : Request CBC WITH MANUAL DIFF (16372)Indication: Heart disease, hypertensive, malignant, without heart failure On: : Request METABOLIC PANEL, COMPREHENSIVE (48678)Indication: Heart disease, hypertensive, malignant, without heart failure On: : Request LIPOPROTEIN, BLD, BY NMR (41825)Indication: Mixed dyslipidemia On: : Request HEPATIC FUNCTION PANEL (00660)Indication: Mixed dyslipidemia On: : Request LIPID PANEL (30421)Indication: Mixed dyslipidemia On: : Request FOLIC ACID SERUM (19329)Indication: Anemia On: :06 Request FERRITIN (55780)Indication: Anemia On: :05 Request IRON (62230)Indication: Anemia On: : Request IRON BINDING CAPACITY (TIBC) (61534)Indication: Anemia On: : Request RETICULOCYTE COUNT MANUL (26680)Indication: Anemia On: :05 Request LDH (LD) (LACTATE DEHYDROGENASE) (42070)Indication: Anemia On: : Request VITAMIN B-12 (CYANOCOBALAMIN) (97476)Indication: Anemia On: 97-Qbu-031505:05 Request CBC WITH MANUAL DIFF (52174)Indication: Anemia On: : Request HEPATIC FUNCTION PANEL (03880)Indication: Mixed dyslipidemia On: : Request LIPID PANEL (27252)Indication: Mixed dyslipidemia On: : Request MICROALBUMIN URINE QUANT (08220)Indication: Hypertension On: :42 Request TSH (20798)Indication: Hypertension On: :42 Request METABOLIC PANEL, COMPREHENSIVE (27787)Indication: Diabetes mellitus type II, controlled On: 82-Kap-592608:42 Request HEPATIC FUNCTION PANEL (57326)Indication: Mixed dyslipidemia On: 59-Zmp-825818:42 Request LIPID PANEL (64666)Indication: Mixed dyslipidemia On: 99-Ppl-420242:42 Request CBC WITH MANUAL DIFF (08618)Indication: Anemia On: :36 Request HEPATIC FUNCTION PANEL ([id number])Indication: Mixed dyslipidemia On: :36 Request LIPID PANEL ([id number])Indication: Mixed dyslipidemia On: :36 Request HgA1C , Office ([id number])Indication: Diabetes mellitus type II, controlled On: :17 Request URINALYSIS W/O MICRO ([id number])Indication: Hypertension On: :47 Request TSH ([id number])Indication: Hypertension On: 25-Mbx-657477:47 Request METABOLIC PANEL, COMPREHENSIVE ([id number])Indication: Hypertension On: 66-Mrt-932122:47 Request CBC WITH MANUAL DIFF ([id number])Indication: Hypertension On: 37-Alo-278746:47 Request Thin prep Pap ([id number])Indication: well female - pap pelvic and bimanual performed On: 8-Obb-491809:02 Request Planned Encounters Medical; 3 Month FU - On: 23-Mar-2018 10:00 [facility] Nia Uriostegui DO, DO, Kathleen Planned Procedures Aerosol Treatment ([id number])By: Mt On: 30-Dec-2017 Intent PRIMARY CARE NURSESherrie E Flu Vaccine (Quadrivalent) 34349Rz: On: 15-Dec-2017 Intent Nia Uriostegui DO, DO, Comments: Lot #[id number]-L dltd, IMDose prefilled syringegiven by: Susie Lopez LPN.VIS reviewed and ABN signed Nia Paniagua 12 Injection, 1000 mcg (J3420)By: On: 15-Dec-2017 Nia Pickens DO, DO, Comments: 1 ml given rt dltd lot [id number] exp 05/30 Nia ELECTROCARDIOGRAM, COMPLETE (ECG) On: 15-Dec-2017 Intent (17213)By: Nia Uriostegui DO Comments: nsr !! yeah- no acute chg poor R wave progression Moody Nia MCFARLAND ELECTROCARDIOGRAM, COMPLETE (ECG) On: 27-Aug-2017 Intent ([id number])By: Nia Uriostegui DO Comments: nsr - ivcd - pvc no acute chg Moody MCFARLAND Nia B 12 Injection, 1000 mcg (J3420)By: On: 28-May-2017 Intent Moody DO, Nia Moody DO, Comments: vitamin b12 1000mcg injectionlot: [id number]:11/2018L DELT IMpt tolerated wellAD FINANCIAL LEGAL ASSISTANT Nia B 12 Injection, 1000 mcg (J3420)By: On: 12-Feb-2017 Intent Moody DO, Nia Moody DO, Comments: 1 ml given lt arm lot [id number] exp 06/28 Nia B 12 Injection, 1000 mcg (J3420)By: On: 29-Nov-2016 Intent Moody DO, Nia Moody DO, Comments: b12 1000mcglot: [id number]: 03/2018L DELT IMpt tolerated wellAD FINANCIAL LEGAL ASSISTANT Nia Flu Vaccine (Quadrivalent) 72039Xv: On: 07-Nov-2016 Intent Moody DO, Nia Moody [...] Nia ELECTROCARDIOGRAM, COMPLETE (ECG) On: 24-Apr-2016 Intent ([id number])By: Nia Uriostegui DO Comments: sinus ana no acute chg Nia Uriostegui DO Aerosol Treatment ([id number])By: Bela On: 27-Feb-2016 Intent Balbir ROSAS Solu- Medrol Injection, 125mg On: 27-Feb-2016 Intent (J2930)By: Balbir Cramer MD Comments: lot [id number] 07/[id number] mgleft gmIMas, FINANCIAL LEGAL ASSISTANT Pulse Oximetry (90186)By: Bela ROSAS, On: 16-Jan-2016 Intent Balbir Aerosol Treatment (51252)By: Bela On: 16-Jan-2016 Intent Balbir ROSAS Solu- Medrol Injection, 125mg On: 16-Jan-2016 Intent (J2930)By: Balbir Cramer MD Comments: Lot:[id number]:06/28Dose:125mgRoute:imSite:r hipGiven By:SASKIA signed CHEST XRAY, PA & LATERAL ([id number])By: On: 16-Jan-2016 Intent Balbir Cramer MD Comments: ?PNA CAROTID ULTRASOUND ([id number])By: Bela On: 16-Jan-2016 Balbir Amaya MD DEXA SCAN AXIAL SKELETON ([id number])By: On: 16-Jan-2016 Intent Balbir Cramer MD MAMMOGRAM, SCREENING, BOTH BREAST On: 16-Jan-2016 Intent ([id number])By: Balbir Cramer MD B 12 Injection, 1000 mcg (J3420)By: On: 16-Jan-2016 Intent Balbir Cramer MD Comments: lot: [id number]: ite/route: L del/IMamt: 1mLVIS signed when applicableMONSTER Molina B 12 Injection, 1000 mcg (J3420)By: On: 11-Oct-2015 Intent Balbir Cramer MD Flu Vaccine (Quadrivalent) 10333Rl: On: 11-Oct-2015 Intent Balbir Cramer MD Comments: Lot #[id number]/30/17ite-L dltd, IMDose prefilled syringegiven by:MAYCO OSWALD and ABN signed B 12 Injection, 1000 mcg (J3420)By: On: 22-May-2015 Intent Maylin Melendez DO B 12 Injection, 1000 mcg (J3420)By: On: 17-Mar-2015 Intent Maylin Melendez DO Comments: lot: [id number]: 10/27site/route: L del/IMamt: 1mLVIS signed when applicableChelsea, SUPPLY CHAIN CONSULTANT PNEUM VAC ADLT/IMUMNOSPR, SBC/INTRM On: 30-Dec-2014 Intent ([id number])By: Maylin Melendez DO Comments: PNUEMOlot:[id number]:1*13*17site:Rt deltoidroute:IMdose:.5mlDEMICK, SMA B 12 Injection, 1000 mcg (J3420)By: On: 30-Dec-2014 Intent Maylin Melendez DO Comments: B12lot:[id number]:05/27site: LT deltoidROute: IMdose:1ml ADMINISTRATION OF INFLUENZA VIRUS On: 21-Oct-2014 Intent VACCINE (G0008)By: Maylin Melendez DO FLU VAC, SPLIT, >3 YEARS, INTRAMUSC On: 21-Oct-2014 Intent ([id number])By: Maylin Melendez DO Comments: lot: [id number]: 08/10/15ite/route: L del/IMamt: 1mLVIS signed when applicableChelsea, SUPPLY CHAIN CONSULTANT MAMMOGRAM, SCREENING, BOTH BREAST On: 05-Oct-2014 Intent ([id number])By: Maylin Melendez DO Cartoid DopplerBy: Maylin Melendez DO On: 05-Oct-2014 Intent B 12 Injection, 1000 mcg (J3420)By: On: 05-Oct-2014 Intent Maylin Melendez DO Comments: Lot:[id number]:02Route:IMSite:R deltoidDose: 1 mLgiven by: Adalgisa Sexton CMA B 12 Injection, 1000 mcg (J3420)By: On: 01-Sep-2014 Intent Adalgisa Sexton Comments: Lot:[id number]:12.26Route:IMSite:R deltoidDose: 1 mLgiven by: Adalgisa Sexton CMA B 12 Injection, 1000 mcg (J3420)By: On: 26-May-2014 Intent Adalgisa Sexton Comments: lot:[id number]:04/25route:IMdose:1MLSite:R deltoidgiven by: FLORY B 12 Injection, 1000 mcg (J3420)By: On: 11-Apr-2014 Intent Kaci Gomez LPN Comments: lot: [id number]: 11/25Dose: 1,000 mcgSite: l dltdLocation; IMby: Solu -Medrol Injection, 125 mg On: 22-Feb-2014 Intent (J2930)By: Maylin Melendez DO Comments: [id number] 6.97722 mgleft gmIMas, FINANCIAL LEGAL ASSISTANT Solu -Medrol Injection, 125 mg On: 31-Jan-2014 Intent (J2930)By: Sherrie Amor CNP Comments: lot [id number] 06/2016location R hiproute imgiven by - msmith VIS and/or ABN signed B 12 Injection, 1000 mcg (J3420)By: On: 21-Jan-2014 Intent Maylin Melendez DO Comments: lot [id number] 05/2015location L armroute imgiven by - msmith VIS and/or ABN signed Aerosol Treatment ([id number])By: Mt On: 14-Jan-2014 Intent Sherrie OJEDA Radiology - ChestBy: Mt OJEDA, On: 14-Jan-2014 Intent Sherrie Beck Comments: stat call results to 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 EKG ([id number])By: Sherrie Amor CNP On: 14-Jan-2014 Intent Comments: looks same as before No new ST -t wave changes ADMINISTRATION OF INFLUENZA VIRUS On: 29-Nov-2013 Intent VACCINE (G0008)By: Maylin Melendez DO Comments: Lot #[id number]-9.2015Site-L dltd, IMDose prefilled syringegiven by:msLORIN and ABN signed FLU VAC, SPLIT, >3 YEARS, INTRAMUSC On: 29-Nov-2013 Intent (00590)By: Maylin Melendez DO B 12 Injection, 1000 mcg (J3420)By: On: 29-Nov-2013 Intent Maylin Melendez DO Comments: given, R dltd, Im - see flowsheet for lot and exp Radiology - Knee - Left - Weight On: 06-Sep-2013 Intent BearingBy: Fast DO Maylin A MAMMOGRAM, SCREENING, BOTH BREAST On: 18-Aug-2013 Intent ([id number])By: Fast DO, Maylin A B 12 Injection, 1000 mcg (J3420)By: On: 18-Aug-2013 Intent Fast DO, Maylin A Aerosol Treatment (43011)By: Mt On: 16-Jul-2013 Intent RUSTY Sherrie Beck Aerosol Treatment (99730)By: Mt On: 09-Jul-2013 Intent RUSTY Sherrie Beck Radiology - ChestBy: Mt OJEDA, On: 09-Jul-2013 Intent Sherrie Beck Eprescribed prescriptions On: 09-Jul-2013 Intent (G8553)By: Sherrie Amor CNP B 12 Injection, 1000 mcg (J3420)By: On: 24-Jun-2013 Intent Visit, Nurse Eprescribed prescriptions On: 24-Jun-2013 Intent (G8553)By: Visit, Nurse Solu- Medrol Injection, 125mg On: 21-Jun-2013 Intent (J2930)By: Mt OJEDA Sherrie Beck Cartoid DopplerBy: Fast DO Maylin A On: 05-May-2013 Intent Eprescribed prescriptions On: 05-May-2013 Intent (G8553)By: Fast DO Maylin A B 12 Injection, 1000 mcg (J3420)By: On: 27-Apr-2013 Intent Visit, Nurse Comments: Lot:[id number]:12/25Dose:1mlRoute:IMSite:l armGiven By:JJUSTIN signed Aerosol Treatment (09808)By: Moody On: 17-Feb-2013 Nia Amaya DO, DO, Kathleen Comments: more q/e less cough -- ok to use rescue inhaler prn not moer than bid with a fib -- if needs ansd worsen go to ER-- pulse reguar after treatment Spirometry (12623)By: Moody MCFARLAND On: 17-Feb-2013 Nia Maher DO Comments: mild restriction -- stable Solu- Medrol Injection, 125mg On: 17-Feb-2013 Intent (J2930)By: Nia Uriostegui DO Comments: lot: [id number]: 16site/route: RGM/IMamt: 2mLVIS signed when applicableMONSTER Molina DO, Kathleen Eprescribed prescriptions On: 17-Feb-2013 Intent (G8553)By: Nia Uriostegui DO, DO, Kathleen EKG (64666)By: Maylin Melendez DO On: 12-Jan-2013 Intent Comments: ekg showed normal sinus rhythym, left axis, no acute st/t wave changes Pelvic and Breast, Medicare On: 12-Jan-2013 Intent (G0101)By: Natalya Kohli Eprescribed prescriptions On: 18-Dec-2012 Intent (G8553)By: Maylin Melendez DO FLU VAC, SPLIT, >3 YEARS, INTRAMUSC On: 18-Dec-2012 Intent (87778)By: Natalya Kohli Comments: Lot #:[id number] date:mount given:0.5mlRoute: IMSite given: L dltdVIS and ABN signedGiven by: CHILO Gillespie ADMINISTRATION OF INFLUENZA VIRUS On: 18-Dec-2012 Intent VACCINE (G0008)By: Natalya Kohli B 12 Injection, 1000 mcg (J3420)By: On: 01-Dec-2012 Intent Tracy Barnes Comments: Lot:[id number]:09/24Dose:1mlRoute:IMSite:l armGiven By:SASKIA signed Eprescribed prescriptions On: 02-Nov-2012 Intent (G8553)By: Sherrie Amor CNP Radiology - Foot - RightBy: Mt On: 02-Nov-2012 Intent Sherrie OJEDA 12 Injection, 1000 mcg (J3420)By: On: 19-Oct-2012 Intent Tracy Barnes Comments: lot: [id number]: 09/23site/route: L deltoid/IMamt: 1mLVIS signed when applicableMONSTER Molina B 12 Injection, 1000 mcg (J3420)By: On: 31-Aug-2012 Intent Maylin Melendez DO Comments: Lot: [id number]: [id number]: 1000mcg/1mlRoute: IMSite: L deltoidGiven by: KASIA Samson Eprescribed prescriptions On: 31-Aug-2012 Intent (G8553)By: Natalya Kohli Nuclear Medicine - Other - On: 18-Aug-2012 Intent Vertebral AssessmentBy: Al MCFARLAND, Comments: Lela Sherman DXA, BONE DENSITY, AXIAL SKELETON On: 22-Jun-2012 Intent (63806)By: Maylin Melendez DO MAMMOGRAM, SCREENING, BOTH BREASTS On: 22-Jun-2012 Intent (07710)By: Maylin Melendez DO B 12 Injection, 1000 mcg (J3420)By: On: 15-Jun-2012 Intent Tracy Barnes Comments: lot: [id number]: 12/24site/route: R deltoid/IMamt: 1,000mcgVIS signed when applicableMONSTER Molina Eprescribed prescriptions On: 17-Apr-2012 Intent (G8553)By: Natalya Kohli B 12 Injection, 1000 mcg (J3420)By: On: 13-Apr-2012 Intent Ramona Vásquez Comments: Lot:[id number]:01/23Dose:1mlRoute:IMSite:r armGiven By:SASKIA signed Eprescribed prescriptions On: 27-Mar-2012 Intent (G8553)By: Susie Lopez LPN FLU VAC, SPLIT, >3 YEARS, INTRAMUSC On: 17-Jan-2012 Intent (47635)By: Maylin Melendez DO Comments: Lot #[id number]/13Site-left deltoidgiven by: Emili Stark LPN ADMINISTRATION OF INFLUENZA VIRUS On: 17-Jan-2012 Intent VACCINE (G0008)By: Maylin Melendez DO Eprescribed prescriptions On: 17-Jan-2012 Intent (G8553)By: Natalya Kohli B 12 Injection, 1000 mcg (J3420)By: On: 31-Dec-2011 Intent Maylin Melendez DO Comments: Lot:[id number]:Dose:1mlRoute:IMSite:L armGiven By:JACQUIE Aerosol Treatment (49962)By: Mt On: 24-Dec-2011 Intent Sherrie OJEDA B 12 Injection, 1000 mcg (J3420)By: On: 29-Oct-2011 Intent Natalya Kohli Comments: Lot #[id number]-11.13Site-R arm, IMDose-prefilled syringegiven by:KASIA MalloyVIS signed CT - ChestBy: Maylin Melendez DO A On: 24-Sep-[address] - ChestBy: Al MCFAR[place] Maylin A On: 24-Sep-2011 Intent Holter Monitor 24 hrsBy: Al [place], On: 17-Sep-2011 Intent Maylin A Comments: please do this week and copy to dr clements EKAlayna (16140)By: Maylin Melendez DO On: 17-Sep-2011 Intent Comments: [...] Instructions Apply. See CIM: 45-4 and MCM: 9) (J3420)By: Carol Stark LPN B 12 Injection, 1000 mcg (J3420)By: On: 23-May-2011 Intent Mast Ericka TELLEZ Comments: Lot #: [id number] date: 12/23Amount given: 1 mlRoute: IMSite given: right deltoidGiven by: GEOFF Salcido MAMMOGRAM, SCREENING, BOTH BREASTS On: 14-May-2011 Intent (09592)By: Maylin Melendez DO CT - ChestBy: Maylin Melendez DO A On: 14-May-2011 Intent Comments: due next month B 12 Injection, 1000 mcg (J3420)By: On: 16-Apr-2011 Intent Mast Ericka TELLEZ Comments: Lot #: [id number] date: 09/22Amount given: 1000 mcg/mlRoute: IMSite given: right deltoidGiven [...] Intent (J2930)By: Sherrie Amor CNP Comments: Lot #[id number]-3.13Site-R hip, IMDose 125mg, 2 mlgiven by: Aerosol Treatment (00368)By: Mt On: 24-Aug-2010 Intent Sherrie OJEDA Pulse Oximetry (81813)By: Keesha RN, On: 24-Aug-2010 Intent Ericka Spirometry (21706)By: Al MCFARLAND, On: 03-Aug-2010 Intent Maylin Sherman Comments: good efffort and curve normal EKG (20311)By: Maylin Melendez DO On: 03-Aug-2010 Intent Comments: ekg showed normal sinus rhythym, normal axis, no acute st/t wave changes poor r wave progression Radiology - Chest- PA and LatBy: On: 03-Aug-2010 Intent Maylin Melendez DO B 12 Injection, 1000 mcg (J3420)By: On: 11-Jul-2010 Intent Carol Stark LPN Comments: Lot #[id number]-/Site-left deltoidDose-1 mlgiven by: Emili Stark LPN TD Injection , IM (55206)By: Al On: 20-Apr-2010 Intent Maylin MCFARLAND Comments: Lot #[id number]-5/12Site-L dtd, IMDose prefilledgiven by:MARTITA B 12 Injection, 1000 mcg (J3420)By: On: 04-Apr-2010 Intent Carol Stark LPN Comments: Lot #[id number]-/12Site-left deltoidDose-1 mlgiven by:[facility] B 12 Injection, 1000 mcg (J3420)By: On: 16-Jan-2010 Intent Carol Reina LPN Comments: Lot #[id number]-1/Site-R rhmXuhz6yhoqcnt by:MARTITA Paniagua 12 Injection, 1000 mcg (J3420)By: On: 12-Dec-2009 Intent Carol Stark LPN Comments: Lot #[id number]-/Site-left deltoidDose-1 mlgiven by:MAYRA FLU VAC, SPLIT, >3 YEARS, INTRAMUSC On: 14-Nov-2009 Intent (22881)By: Natalya Kohli ADMINISTRATION OF INFLUENZA VIRUS On: 14-Nov-2009 Intent VACCINE (G0008)By: Seun, Comments: Lot #: [id number] date:mount given: 0.5 mlRoute: IMSite given: left deltoid Given by: GEOFF Hilton DXA, BONE DENSITY, AXIAL SKELETON On: 01-Nov-2009 Intent (11571)By: Maylin Melendez DO MAMMOGRAM, SCREENING, BOTH BREASTS On: 01-Nov-2009 Intent (77243)By: Maylin Melendez DO ADMINISTRATION OF PNEUMOCOCCAL On: 01-Nov-2009 Intent VACCINE (G0009)By: Maylin Melendez DO PNEUM VAC ADLT/IMUMNOSPR, SBC/INTRM On: 01-Nov-2009 Intent (16251)By: Maylin Melendez DO B 12 Injection, 1000 mcg (J3420)By: On: 01-Nov-2009 Intent Carol Reina LPN Comments: Lot #[id number]-06/21Site-L dltdDose 30m/mlgiven by:KASIA GONZALES Pneumovax (67718)By: Nuno PEDROZA, On: 01-Nov-2009 Intent Carol Mead Comments: Lot #[id number]-August 2010Site-R dltdDose 0.5mlgiven by:KASIA ANDERS B 12 Injection, 1000 mcg (J3420)By: On: 25-Aug-2009 Intent Carol Stark LPN Comments: Lot #[id number]-/Site-left deltoidDose-1 mlgiven by:[facility] B 12 Injection, 1000 mcg (J3420)By: On: 13-Jul-2009 Intent Monik Rushing Comments: Lot #[id number]-01/2011Site-left [id number]/1mlgiven by Diana Rushing LPN CT - ChestBy: Fast DO, Maylin A On: 05-Jun-2009 Intent Spirometry (66534)By: Seun, On: 05-Jun-2009 Intent Natalya Comments: goo [...] given:left deltoidGiven by: CHILO Gillespie Aerosol Treatment (85570)By: On: 08-Nov-2008 Intent Natalya Carter Comments: post treatment breath sounds clear bilat. pt. states feels breathing better. Pulse Oximetry (41237)By: Raul, On: 08-Nov-2008 Intent Natalya Comments: 95% CT - ChestBy: Fast DO, Maylin A On: 03-Oct-2008 Intent Comments: november Ultrasound - GallbladderBy: Taylaeslane On: 15-Sep-2008 Intent Sherrie OJEDA Ultrasound - Abdomen Complete & On: 15-Sep-2008 Intent PelvisBy: Sherrie Amor CNP B 12 Injection, 1000 mcg (J3420)By: On: 07-Sep-2008 Intent Mya Barahona Comments: lot #:[id number]:04/2010site:right deltoidGiven by CHILO Roque B 12 Injection, 1000 mcg (J3420)By: On: 02-Aug-2008 Intent Fast DO Maylin A Comments: 1ml given im lt mamie lot [id number] exp 12-20 B 12 Injection, 1000 mcg (J3420)By: On: 05-Jul-2008 Intent Fast DO Maylin A Comments: Lot #[id number]-12/2009Site-left rrcejnhSrxc9519dqm/1mlgiven by Diana Rushing LPN CT - Brain/HeadBy: Fast DO Maylin A On: 31-May-2008 Intent EKG (60076)By: Al MCFARLAND Maylin A On: 10-May-2008 Intent Comments: ekg showed normal sinus rhythym, leftaxis, nonspecific t changges unchanged fromprevious Echo CompleteBy: Al DO Maylin A On: 10-May-2008 Intent PFT - CompleteBy: Al DO Maylin A On: 10-May-2008 Intent Pulse Oximetry (70665)By: Al MCFARLAND, On: 10-May-2008 Intent Maylin A Comments: 95 Spirometry (70309)By: Al MCFARLAND, On: 10-May-2008 Intent Maylin A Comments: good effort and curve mild restriction CT - ChestBy: Fast DO Maylin A On: 10-May-2008 Intent Bio Z (57719)By: Al MCFARLAND Maylin A On: 10-May-2008 Intent Comments: numbers loog good INJECTION, VITAMIN B-12 On: 10-May-2008 Intent CYANOCOBALAMIN, UP TO 1000 MCG (Special Coverage Instructions Apply. See CIM: 45-4 and MCM: 2049) (J3420)By: Natalya Kohli 12 Injection, 1000 mcg (J3420)By: On: 08-Apr-2008 Intent Mast RN, Ericka B 12 Injection, 1000 mcg (J3420)By: On: 11-Mar-2008 Intent Susanna Masterson Comments: Lot #[id number] date:mount given:1mlSite given: left deltoidGiven by: INJECTION, VITAMIN B-12 On: 01-Feb-2008 Intent CYANOCOBALAMIN, UP TO 1000 MCG (Special Coverage Instructions Apply. See CIM: 45-4 and MCM: 2048) (J3420)By: Adriane Muhammad LPN B 12 Injection, 1000 mcg (J3420)By: On: 01-Jan-2008 Intent Monik Rushing Comments: Lot #[id number]-5/10Site-left ikdfzslSeca0rdhxamo by Diana Rushing LPN INJECTION, VITAMIN B-12 On: 03-Dec-2007 Intent CYANOCOBALAMIN, UP TO 1000 MCG Comments: injection given in left deltoid, Ptolerated welllo # [id number] 5/10 (Special Coverage Instructions Apply. See CIM: 45-4 and MCM: 2048) (J3420)By: Irais Monreal B 12 Injection, 1000 mcg (J3420)By: On: 26-Nov-2007 Intent Monik Rushing Comments: Lot #[id number]-5/10Site-left qfpctelHitv2unfmsnr by Diana Rushing LPN INJECTION, VITAMIN B-12 On: 19-Nov-2007 Intent CYANOCOBALAMIN, UP TO 1000 MCG (Special Coverage Instructions Apply. See CIM: 45-4 and MCM: 2048) (J3420)By: Adriane Muhammad LPN INJECTION, VITAMIN B-12 On: 12-Nov-2007 Intent CYANOCOBALAMIN, UP TO 1000 MCG (Special Coverage Instructions Apply. See CIM: 45-4 and MCM: 2048) (J3420)By: Adriane Muhammad LPN B 12 Injection, 1000 mcg (J3420)By: On: 05-Nov-2007 Intent Adriane Muhammad LPN Cartoid DopplerBy: Fast DO, Maylin A On: 30-Oct-2007 Intent Spirometry (36003)By: Fast DO, On: 30-Oct-2007 Intent Maylin A Comments: good effort and curve- some small airway decrease Radiology - Chest- PA and LatBy: On: 30-Oct-2007 Intent Maylin Melendez DO DXA, BONE DENSITY, AXIAL SKELETON On: 24-Jul-2007 Intent (24363)By: Maylin Melendez DO Comments: postmenopausal without estrogen MAMMOGRAM, SCREENING, BOTH BREASTS On: 24-Jul-2007 Intent ([id number])By: Maylin Melendez DO Radiology - Knee - Right - Weight On: 15-Jun-2007 Intent BearingBy: Maylin Melendez DO Comments: call results CT - ChestBy: Maylin Melendez DO On: 03-Apr-[address] - ChestBy: Maylin Melendez DO On: 15-Aug-2006 Intent Spirometry (31820)By: Al MCFARLAND, On: 15-Aug-2006 Intent Maylin Sherman Comments: good effort and curve- mild obstruction EKG (86094)By: Natalya Kohli On: 15-Aug-2006 Intent Comments: ekg showed normal sinus rhythym, normal axis, no acute st/t wave changes Radiology - ChestBy: LEE OJEDA, On: 25-Jun-2006 Intent PAMELA Comments: PA and LAT Solu- Medrol Injection, 125mg On: 25-Jun-2006 Intent (J2930)By: PAMELA HOWARD CNP Pulse Oximetry (54611)By: LEE On: 25-Jun-2006 Intent PAMELA OJEDA Comments: pt tolerated well. ins waiver signed Aerosol Treatment (57809)By: LEE On: 25-Jun-2006 Intent PAMELA OJEDA Comments: ins wwaiver signed, pt tolerated well Spirometry (77195)By: Al MCFARLAND, On: 14-May-2006 Intent Maylin Sherman Comments: good effort and curve-mild obstruction ADMINISTRATION OF PNEUMOCOCCAL On: 11-Feb-2006 Intent VACCINE (G0009)By: ULYSSES Quiñones PNEUM VAC ADLT/IMUMNOSPR, SBC/INTRM On: 11-Feb-2006 Intent (94137)By: ULYSSES Quiñones Bio Z (89076)By: Maylin Melendez DO On: 11-Feb-2006 Intent Comments: bp was 132/65- cardiac output, svr and thoracic fluid content is normal- will hold on med changes PNEUM VAC ADLT/IMUMNOSPR, SBC/INTRM On: 11-Feb-2006 Intent (65733)By: Maylin Melendez DO ADMINISTRATION OF PNEUMOCOCCAL On: 11-Feb-2006 Intent VACCINE (G0009)By: Maylin Melendez DO MAMMOGRAM, SCREENING, BOTH BREASTS On: 16-Oct-2005 Intent (44820)By: Maylin Melendez DO Planned Medications INJECTION, METHYLPREDNISOLONE SODIUM SUCCINATE, UP TO 125 MG Ordered: 17-Feb-2013 Pending Moody MCFARLAND Nia Moody DO, Nia INJECTION, METHYLPREDNISOLONE SODIUM SUCCINATE, UP TO 125 MG Ordered: 31-Jan-2014 Pending Mt OJEDA Carlotta INJECTION, METHYLPREDNISOLONE SODIUM SUCCINATE, UP TO 125 MG Ordered: 24-Aug-2010 Pending Ciesa PRIMARY CARE NURSE, Carlotta INJECTION, METHYLPREDNISOLONE SODIUM SUCCINATE, UP TO 125 MG Ordered: 22-Feb-2014 Pending Maylin Melendez DO INJECTION, METHYLPREDNISOLONE SODIUM SUCCINATE, UP TO 125 MG Ordered: 27-Feb-2016 Pending Balbir Cramer MD INJECTION, METHYLPREDNISOLONE SODIUM SUCCINATE, UP TO 125 MG Ordered: 16-Jan-2016 Pending Balbir Cramer MD INJECTION, METHYLPREDNISOLONE SODIUM SUCCINATE, UP TO 125 MG Ordered: 21-Jun-2013 Pending Mt OJEDA Carlotta Vitamin B-12 1000 MCG/ML Injection Solution Ordered: 12-Dec-2009 Pending Carol Stark LPN Vitamin B-12 1000 MCG/ML Injection Solution Ordered: 21-Jan-2014 Pending Al MCFARLAND Maylin A Vitamin B-12 1000 MCG/ML Injection Solution Ordered: 11-Apr-2014 Pending Kaci Gomez LPN Vitamin B-12 1000 MCG/ML Injection Solution Ordered: 26-May-2014 Pending Adalgisa Sexton Vitamin B-12 1000 MCG/ML Injection Solution Ordered: 01-Sep-2014 Pending Adalgisa Sexton Vitamin B-12 1000 MCG/ML Injection Solution Ordered: 05-Oct-2014 Pending Al MCFARLAND Maylin A Vitamin B-12 1000 MCG/ML Injection Solution Ordered: 22-May-2015 Pending Al MCFARLAND Maylin A Vitamin B-12 1000 MCG/ML Injection Solution Ordered: 17-Mar-2015 Pending Al MCFARLAND Maylin A Vitamin B-12 1000 MCG/ML Injection Solution Ordered: 11-Oct-2015 Pending Balbir Cramer MD Vitamin B-12 1000 MCG/ML Injection Solution Ordered: 16-Jan-2016 PendBalbir Noel MD Vitamin B-12 1000 MCG/ML Injection Solution [...] MCG/ML Injection Solution Ordered: 16-Jan-2010 Pending Long FINANCIAL LEGAL ASSISTANT, Carol L Vitamin B-12 1000 MCG/ML Injection Solution Ordered: 04-Apr-2010 Pending Hluszti FINANCIAL LEGAL ASSISTANT, Carol Vitamin B-12 1000 MCG/ML Injection Solution Ordered: 11-Jul-2010 Pending Hluszti FINANCIAL LEGAL ASSISTANT, Carol Vitamin B-12 1000 MCG/ML Injection Solution Ordered: 21-Nov-2010 Pending Long FINANCIAL LEGAL ASSISTANT, Carol L Vitamin B-12 1000 MCG/ML Injection Solution Ordered: 14-Jan-2011 Pending Natalya Kohli Vitamin B-12 1000 MCG/ML Injection Solution Ordered: 15-Feb-2011 Pending Long FINANCIAL LEGAL ASSISTANT, Carol L Vitamin B-12 1000 MCG/ML Injection Solution Ordered: 18-Mar-2011 Pending Hluszti FINANCIAL LEGAL ASSISTANT, Carol Vitamin B-12 1000 MCG/ML Injection Solution Ordered: 16-Apr-2011 Pending Ericka Thao RN Vitamin B-12 1000 MCG/ML Injection Solution Ordered: 23-May-2011 Pending Ericka Thao RN Vitamin B-12 1000 MCG/ML Injection Solution Ordered: 22-Jul-2011 Pending Carol Stark LPN Vitamin B-12 1000 MCG/ML Injection Solution [...] 1000 MCG/ML Injection Solution Ordered: 15-Dec-2017 Pending Nia Uriostegui DO, DO, Kathleen Instructions Name Dates Details Nonsmoker : How to access health information [...] Instructions Indication: Anemia Encounters Office Visit On: 30-Dec-2017 11:09 Encounter Reason: [...] Reason for ER visit: note: (afib in [facility] from sat till wed). The [...] SOB. 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 The patient has noticed nothing from the geriatic depression scale. Other providers contributing to the patient's care are photographic lithographer, gastrologist an d other: (neurologist). 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 The patient feels well with no complaints [...] so backed off on drugs - overall feelin alayna raygoza daily- her bowels are ok now- [...] first time happened while family there at [place] while family eating dinner - other time happened when her friend was talking about his open heart surgery - feels like may be panic or anxiety- she was at [employer] a few mos ago and he had [...] [facility] End: 06-Sep-2005 6:51 Payers MedicareRural Carrier BenefitCignaComfort sherman guarantor
--- OUTSIDE RECORDS SUMMARY | 2018-02-18 04:19 | XMS RPT_ITS | Continuity of Care Document ---
:1940 Author Organization [facility] Address [address] [place] [address] Phone Care Team Providers Name Role Phone Nia Uriostegui DO Unavailable Je Rodriguez Unavailable Dr. Christopher Alfonso Unavailable Mariely Monreal Unavailable Messenger, GREEN WARE CASTER Susie Unavailable Unavailable Long GREEN WARE CASTER, Carol L Unavailable Unavailable Unavailable Unavailable Problems Name Dates Details Abnormal findings on diagnostic imaging of spine (R93.7, 793.7) Comments: fracture seen on dexa Status: Active Actinic keratosis (L57.0, 702.0) Comments: right forearm- froze for 45 sec Status: Active Actinic keratosis (L57.0, 702.0) Comments: cryo x 2 right cheek Status: Active Acute idiopathic gout involving toe of left foot (M10.072, 274.01) Status: Active Anemia (D64.9, 285.9) 26-Sep-2011 Status: Active Asthma (J45.909, 493.90) Status: Active Asthma with acute exacerbation (J45.901, 493.92) Comments: add mucinex Status: Active Atelectasis (J98.11, 518.0) Status: Active ATRIAL FIBRILLATION (Renamed from A-fib) (I48.91, 427.31) Comments: cant do anticoagulation bc of h/o brain surgery Status: Active B12 deficiency (E53.8, 266.2) Status: Active 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 meningioma Status: Active Benign paroxysmal positional vertigo (H81.10, 386.11) Comments: improving Status: Active Bilateral carotid artery stenosis (I65.23, 433.10) Status: Active BMI 33.0-33.9,adult (Z68.33, V85.33) Status: Active BMI 34.0-34.9,adult (Z68.34, V85.34) Status: Active BMI 35.0-35.9,adult (Z68.35, V85.35) Status: Active Bronchitis (J40, 490) Comments: If yellow phlegm doesnt clear after antibiotic completed, call us. Status: Active Candidiasis, unspecified (B37.9, 112.9) Status: Active Cardiac dysrhythmia (I49.9, 427.9) Status: Active Coronary artery disease (I25.10, 414.00) Comments: CABG annemarie Torres 09/25, every 6 month Status: Active Cough (R05, 786.2) 24-Aug-2010 Comments: Levaquin and tessalon yadiesBecause of the side effects of antibiotics,use probiotics or lactobacillus acidophillus to keep the good bacteria in the gut.Increase the amount of yogurt with active culture s.Use warm water with salt gargles for sore throat.Honey lemon trena turmeric tea.Drink lots of fluidsSteam inhalation.Mucinex over the counter to loosen the mucus.Robitussin DM over the counter.Do not use decongestants with high blood pressure or heart disease.Avoid pasta , potatoes, white flour and sweets as infection feeds on it.Lots of rest.If you have worsening fevers, shortness of breath, chest pain, cough, sinus pain, sore throat or difficulty swallowing, sputum or drainage that is yellow green or symptoms dont improve in a week , give us a call.2 weeks: Cough with yellow phlegm,Denies sinu s pain, ear aches, runny nose,fever, some SOBBronchtis yearlyDenies worsenisng SOB, wheze, chest painAsthma: advair , Had PNA in the pastwent in atrial fibrillation twice in the past wi th cough Status: Active Deliveries (Parity) Comments: 2 Status: Active Diabetes mellitus type II, controlled (E11.9, 250.00) Status: Active Diabetic polyneuropathy associated with type [...] (Z86.010, V12.72) Comments: Colonoscopy 06/09/12, 5 years, [id number]- adenoma- repeat in 5 years Status: Active Hypertension (I10, 401.9) Status: Active Hypertensive heart disease without heart failure (I11.9, 402.90) Status: Active Iron deficiency anemia, unspecified (D50.9, 280.9) Status: Active Irritable bowel syndrome with diarrhea (K58.0, 564.1) Comments: going back to abour Status: Active Knee pain (M25.569, 719.46) Status: Active Leg swelling (M79.89, 729.81) Comments: this has been worked up - and think due to alot of sitting and venous stasis as she has noticed better since getting more active Status: Active Lung nodule (R91.1, 518.89) Status: Active Mixed dyslipidemia (E78.2, 272.2) Status: Active Need for prophylactic vaccination and inoculation against influenza (Z23, V04.81) Status: Active 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, 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) Comments: Dr Rivas in [place], 09/25, does MRI every year , not done this yearDid EEG :WNL per pt Status: Active Nonsmoker (Z78.9, V49.89) Status: Active Osteoarthritis (M19.90, 715.90) Status: Active Other premature beats (I49.49, 427.69) Comments: seems better heart workup ok Status: Active Other symptoms involving cardiovascular system (R09.89, 785.9) Status: Active Other vitamin B12 deficiency anemia (D51.8, 281.1) Status: Active Postmenopausal (Z78.0, V49.81) Status: Active postmenopausal without estrogen Status: Active Pregnancies () Comments: 2 Status: [...] Balbir Cramer MD Start : 11-Oct-2015 Active Amiodarone HCl 200 MG Oral Tablet 1/2 daily (200 MG) Active ASPIRIN EC, 325MG (Oral Tablet Delayed Release) qd (325 MG) Active Atorvastatin Calcium 40 MG Oral Tablet 1 Tablet qd for 0 days Quantity: 30 {Tablet} Refills: 4 Ordered:28-Apr-2017 Karen Uriostegui DO, DO, Kathleen Start : 28-Apr-2017 Active Easy Touch Test In Vitro Strip 1 (one) Strip bid for 90 days Quantity: 100 {Strip} Refills: 3 Ordered:27-Aug-2017 Susie Lopez LPN Start : 27-Aug-2017 Active Lansoprazole 30 MG Oral Capsule Delayed [...] Levemir FlexTouch 100 UNIT/ML Subcutaneous Solution Pen-injector 19 units HS for 30 days Quantity: 1 {Syringe} Refills: 3 Ordered:28-May-2017 Karen Uriostegui DO, DO, Kathleen Start : 28-May-2017 Active Comments:new dose Magnesium Oxide 400 MG [...] Lopez LPN Start : 31-Jul-2016 Active Pen Shannock 5/16 31G X 8 MM Miscellaneous 1 [...] Balbir Cramer MD Start : 11-Oct-2015 Active Tradjenta 5 MG Oral Tablet 1 (one) Tablet qd for 90 days Quantity: 90 {Tablet} Refills: 1 Ordered:27-Aug-2017 Susie Lopez LPN Start : 27-Aug-2017 Active Valsartan 320 MG Oral Tablet 1 qd (320 MG) Active VITAMIN D3, 2000UNIT (Oral Tablet) 5 Tablet qd for 0 days Quantity: 30 {Tablet} Refills: 4 Ordered:11-Oct-2015 Carol Reina LPN Start : 05-Jul-2015 Active ALBUTEROL, 90MCG/ACT (Inhalation Aerosol Solution) 2 puffs Aerosol Soln QID PRN for 0 days Quantity: 1 {Aerosol_Soln} Refills: 3 Ordered:24-Jul-2007 Monik Rushing Start : 24-Jul-2007 End : 20-Oct-2007 Inactive ASPIRIN, 81MG (Oral Tablet) 1 tab [...] for 0 days Refills: 0 Ordered:27-Feb-2016 Long GREEN WARE CASTER, Carol L End : 27-Feb-2016 Inactive NASONEX, 50MCG/ACT (Nasal Suspension) 1-2 squirts Suspension daily for 0 days Quantity: 1 {Unspecified} Refills: 0 Ordered:14-Jan-2014 ULYSSES Quiñones Start : 05-May-2013 End : 14-Jan-2014 Inactive Potassium Chloride ER 20 MEQ Oral Tablet Extended Release 1 (one) Tablet ER Tablet ER daily for 0 days Quantity: 60 {Tablet} Refills: 0 Ordered:27-Feb-2016 Long GREEN WARE CASTER, Carol L Start : 29-Jun-2014 End : [...] : 23-Jan-2016 Inactive Comments:Medication taken as needed. Tessalon Perles 100 MG Oral Capsule 1 (one) Capsule two times daily, as needed for 10 days Quantity: 30 {Capsule} Refills: 0 Ordered:27-Feb-2016 Balbir Cramer MD Start : 27-Feb-2016 End : 08-Mar-2016 Inactive Comments:Medication taken as needed. TYLENOL WITH CODEINE #3, 300-30MG (Oral Tablet) 1 Tablet qhs for 6 days Refills: 0 Ordered:17-Apr-2012 Natalya Kohli Start : 27-Mar-2012 End : 17-Apr-2012 Inactive Valsartan-Hydrochlorothiazide 320-25 MG Oral Tablet 1 Tablet qd for 90 days Quantity: 90 {Tablet} Refills: 1 Ordered:07-Nov-2016 Susie Lopez LPN Start : 10-Jul-2016 End : 07-Nov-2016 Inactive VITAMIN D (ERGOCALCIFEROL), 94426DPVC (Oral Capsule) 1 cap once a week (81903 UNIT) Inactive Vitamin D3 15764 UNIT Oral Tablet 1 (one) Tablet weekly [...] Comments:per cardio AVALIDE, 300-25MG (Oral Tablet) 1 tab Tablet qd for 0 days Quantity: 90 {Tablet} Refills: 3 Ordered:02-Aug-2008 Maylin Melendez DO Start : 02-Aug-2008 End : 02-Aug-2008 Discontinued AVALIDE, 300-25MG (Oral Tablet) 1 (one) Tablet Daily for 0 days Quantity: 90 {Tablet} Refills: 3 Ordered:16-Oct-2005 Monik Rushing Start : 16-Oct-2005 End : 15-Aug-2006 Discontinued Cardizem CD 240 MG Oral Capsule [...] days Quantity: 90 {Tablet} Refills: 3 Ordered:17-Apr-2012 Al Maylin MCFARLAND Start : 17-Apr-2012 End : 17-Apr-2012 Discontinued ERGOCALCIFEROL, 34854SXFQ (Oral Capsule) 1 (one) Capsule q week [...] days Quantity: 30 {Tablet} Refills: 0 Ordered:21-Oct-2014 Al Maylin MCFARLAND Start : 21-Oct-2014 End : 21-Oct-2014 Discontinued [...] 17-Jan-2012 End : 17-Jan-2012 Discontinued ONE TOUCH DELMARAH LANCNESS (Miscellaneous) uad Misc bid for 90 days [...] Quantity: 90 {Tablet_ER_24HR} Refills: 3 Ordered:11-Feb-2006 Monik Rushnig Start : 11-Feb-2006 End : 03-Apr-2007 Discontinued [...] switch to her tradjenta VITAMIN D (ERGOCALCIFEROL), 05412LAQN (Oral Capsule) 1 Capsule twice a week [...] d Status: Resolved as of 03-Oct-2008 Abnormal mammogram (R92.8, 793.80) Status: Inactive as of 03-Aug-2008 Allergic rhinitis due to other allergen (J30.89, 477.8) Status: Inactive as of 28-Apr-2017 BMI 32.0-32.9,adult (Z68.32, V85.32) Status: Inactive as of 28-Apr-2017 BMI 34.0-34.9,adult (Z68.34, V85.34) Status: Inactive as of 28-Apr-2017 Bronchitis, acute (J20.9, 466.0) Status: Resolved as [...] (R51, 784.0) Status: Resolved as of 11-Aug-2008 Laryngitis (J04.0, 464.00) Status: Resolved as of 14-Jan-2011 Nausea & vomiting (R11.2, 787.01) Status: Resolved as of 03-Oct-2008 near syncope Status: Resolved as of 27-Jun-2008 Neoplasm of uncertain behavior of skin (D48.5, 238.2) Comments: excise skin lesion sent for pathology Status: Inactive as of 14-Jan-2014 Pain in joint involving ankle and foot, unspecified laterality (M25.579, 719.47) Status: Inactive as of 14-Jan-2014 p[place]loma Comments: remove Status: Inactive as of 14-Jan-2014 postmenopausal without estrogen Status: Inactive as of 14-Jan-2014 screen Status: Inactive as of 14-Nov-2009 screening Status: Inactive as of 12-Jan-2013 screening Status: Inactive as of 14-Jan-2014 screening Status: Inactive as of 12-Jan-2013 SOB (R06.02, 786.05) 03-Aug-2010 Comments: had cardio workup - thnk lung related so will get her back to [facility] Status: Inactive as of 24-Apr-2016 Unspecified Diagnosis [...] left eye 2016 Completed cataract right eye 2016 Completed Last Pap Smear, Date Completed Comments: 11-30-02 Mammogram Completed Comments: 01-12-04 Date Value Details 04-Nov-2017 Operative Report Result: Comments: See Note; NOTES: [facility] Medical Records Department [address] [place] [address] Operative Report 11/03/17 1228 MR#: [id number] Acct: [id number] Name: COMFORT OLSON Rep #: [id number] : 1940 76 From: Patrick Ellsworth MD PCP: Nia Uriostegui DO Status: [facility] Y Location: [facility] Problem List (1) New onset atrial flutter Status: Acute (2) Atherosclerotic heart disease of [place] coronary artery without angina pectoris Status: Chronic Qualifiers: [place] vs. transplanted heart: [place] heart Qualified Code(s): I25.10 - Atherosclerotic heart disease of [place] nitin nary artery without angina pectoris Comment: 08/06/2004 CABG x2 VILLAGRAN side to side to second Diagonal and end to side to Anterior Descending artery in Sequential fashion. [facility]: 08/01/2004; 10/15/2011 (3) Cardiomyopathy in diseases [...] is a 76-year-old female who presented to [facility] for an elective outpat ient [...] Visit 9xxxx: Other Procedure See Report - [id number] 11/04/17 0525 <Electronically signed by Patrick Ellsworth MD> Date Patrick Ellsworth MD CC: Patrick Ellsworth MD; Jonel Rashid MD; Nia Uriostegui DO Signed 03-Nov-2017 Operative Report Result: Comments: See Note; NOTES: [facility] Medical Records Department [address] [place] [address] Operative Report 11/03/174 MR#: [id number] Acct: [id number] Name: COMFORT OLSON Lane Rep #: [id number] : 1940 76 From: Jonel Rashid MD PCP: Nia Uriostegui DO Status: REG SDC Y Location: [facility] Operative Report Date of Procedure: 11/03/17 [...] Visit Report Result: Comments: See Note; NOTES: [facility] [address] [place] [address] OFFICE VISIT Date of Service: 10/08/17 MR#: [id number] Acct: [id number] Name: COMFORT OLSON Re p #: [id number] : 1940 Provider: Jonel Rashid MD Age/Sex: 76/F Location: [facility] Status: Signed HPI [facility] Chief Complaint: Follow up Details: COMFORT OLSON, [...] 70 Intake Visit Reasons: ER 8-20 per CURATOR Allergies No Known Allergies Allergy (Verified 10/08/17 [...] PO BID 08/24/17 [History Confirmed 10/05/17] Methscopolamine [place] 5 mg P O BID 08/24/17 [History [...] BID #180 tab 10/08/17 [Rx Confirmed 10/08/17] PFSH Medical History Left bundle branch block (Chronic) New onset atrial flutter (Acute 09/29/17) 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) Coding Level of Care Code Off vis,est,level [...] Lead Electrocardiogram Result: Comments: See Note; NOTES: [facility] Cardiovascular Services [address] [place] [address] 12 Lead EKG 10/05/17 0149 MR#: [id number] Acct: [id number] Name: COMFORT OLSON Rep # : [id number] : 1940 76 From: Jonel Rashid MD [...] bundle branch block Abnormal ECG Confirmed by JONEL RASHID MD ([id number]), [place] (56) on 10/07/2017 2:45:19 PM Referred By: Jonel Rashid Confirmed By:JONEL RASHID MD 10/07/17 4898 Date _ Jonel Rashid MD CC: Emery Allen MD; Nia Uriostegui DO Signed 07-Oct-2017 12 Lead Electrocardiogram Result: Comments: See Note; NOTES: [facility] Cardiovascular Services [address] [place] [address] 12 Lead EKG 10/05/17 0333 MR#: [id number] Acct: [id number] Name: COMFORT OLSON Rep # : [id number] : 1940 76 From: Jonel Rashid MD [...] Confirmed by JONEL RASHID MD ([id number]), [place] (56) on 10/07/2017 2:42:56 PM Referred By: Kathleen Rashid Confirmed By:JONEL RASHID MD 10/07/17 1442 Date Jonel Rashid MD CC: Emeyr Allen MD; Nia Uriostegui DO Signed 05-Oct-2017 Discharge Instruction Result: Comments: See Note; NOTES: [facility] Medical Records Department [address] [place] [address] Discharge Instruction 10/05/17 0440 MR#: [id number] Acct: [id number] Name: FRITZLiyah Sherman Rep #: [id number] : 1940 76 From: Emery Allen MD [...] Primary Care Provi latrell. Call [facility] ([phone]) or report to the closest Emergency Room. Call 911 if necessary. 10/05/17 0528 <Electronically signed by Emery Allen MD> Date ____ Emery Allen MD Cosigner Signature (If Indicated): Date CC: Nia Uriostegui DO 05-Oct-2017 Emergency Department Summary Result: Comments: See Note; NOTES: [facility] Medical Records Department [address] [place] [address] Emergency Department Summary 10/05/17 0435 MR#: [id number] Acct: [id number] Name: COMFORT OLSON Rep #: [id number] : 1940 76 From: Emery Allen MD [...] flutter This not e was generated with oboxo dictation software. It may contain incorrect words, [...] your Primary Care Provider. Call [facility] ([phone]) or report to the closest Emergency Room. Call 911 if necessary. 10/05/17 0528 &#60 ;Electronically signed by Emery Allen MD> Date Emery Allen MD Cosigner Signature (If Indicated): Date CC: Nia Uriostegui DO 05-Oct-2017 Chest 1 View (Portable) Result: Comments: See Note; NOTES: [facility] Imaging Services [address] [place] [address] Chest 1 View (Portable) MR#: [id number] Acct: [id number] Name: COMFORT OLSON Rep #: [id number] : 1940 F 76 From: Chris Dwyer MD PCP: Nia Uriostegui DO Status: REG ER Study: Chest 1 View (Portable) Date of Exam: 10/05/17 Exam# [id number] Ordering Dr: Emery Allen MD STUDY: X-R [...] of the upper abdomen. ORDER # : [id number] RAD/Chest 1 View (Portable) IMPRESSION: Mild cardiomegaly. Minimal persistent left basilar atelectasis. No evidence for acute cardiopulmonary pathology. Electronically Signed: Chris Dwyer MD at 2:42 EDT , Service support , CC: Emery Allen MD; Nia Uriostegui DO Control Room Agent: Signed 03-Oct-2017 12 Lead Electrocardiogram Result: Comments: See Note; NOTES: [facility] Cardiovascular Services [address] [place] [address] 12 Lead EKG 10/02/17 1353 MR#: [id number] Acct: [id number] Name: COMFORT OLSON Rep # : [id number] : 1940 76 From: Jonel Rashid MD Attending Dr: Gay ROSAS,Jonel Status: REG CLI Ordering Dr: Richard Lombardo NP-Kathleen Date: 10/02/17 Location: [facility] Sex: F C Admitted: [...] Confirmed by JONEL RASHID MD ([id number]), [place] (56) on 10/03/2017 1:43:28 PM Referred By: Jonel Rashid Confirmed By:USMAN RASHID MD 10/03/17 1343 Date Jonel Rashid MD CC: JOSSELYN Lombardo; Jonel Rashid MD; Nia Uriostegui DO Signed 02-Oct-2017 Echo, Complete w/ Contrast Result: Comments: See Note; NOTES: [facility] Cardiovascular Services [address] [place] [address] Echo Complete W/ Contrast 10/02/17 1250 MR#: [id number] Acct: [id number] Name: COMFORT JONES Rep #: [id number] : 1940 76 From: Jonel Rashid MD Attending Dr: Jonel Rashid MD Status: REG CLI Ordering Dr: Jonel Rashid MD Date: 10/02/17 Location: [facility] Sex: F C Admitted: [...] Physician: Jonel Rashid erformed By: Rachel Oconnor, MILACS, RVT 10/02/171742 Date Jonel Rashid MD CC: Jonel stubbs MD; Nia Uriostegui DO Date Dictated: 10/02/17 1250 Date Transcribed: 10/02/171742 Control Room Agent: Signed 02-Oct-2017 12 Lead Electrocardiogram Result: Comments: See Note; NOTES: [facility] Cardiovascular Services [address] [address] 12 Lead EKG 09/29/17 1035 MR#: [id number] Acct: [id number] Name: COMFORT OLSON Rep # : [id number] : 1940 76 From: Antonio Tovar MD [...] Confirmed by ZARA ROSAS, ANTONIO ([id number]), [place] (56) on 10/02/2017 1:30:21 PM Refer red By: BOZENA Confirmed By:ANTONIO TOVAR MD 10/02/17 1330 Date Antonio Tovar MD CC: Nia Uriostegui DO; Jignesh Tello MD Signed 02-Oct-2017 12 Lead Electrocardiogram Result: Comments: See Note; NOTES: [facility] Cardiovascular Services [address] [place] [address] 12 Lead EKG 09/29/17 1020 MR#: [id number] Acct: [id number] Name: COMFORT OLSON Rep # : [id number] : 1940 76 From: Antonio Tovar MD [...] Abnormal ECG Confirmed by ANTONIO TOVAR MD ([id number]), [place] (56) on 10/02/2017 1:27:54 PM Referred By: BOZENA Confirmed By:ANTONIO TOVAR MD 10/02/17 1327 Date Antonio Tovar MD CC: Nia Uriostegui DO; Jignesh Tello MD Signed 02-Oct-2017 12 Lead Electrocardiogram Result: Comments: See Note; NOTES: [facility] Cardiovascular Services [address] [place] [address] 12 Lead EKG 09/29/17 0905 MR#: [id number] Acct: [id number] Name: COMFORT OLSON Rep # : [id number] : 1940 76 From: Antonio Tovar MD [...] Abnormal ECG Confirmed by ANTONIO TOVAR MD ([id number]), [place] (56) on 10/02/2017 1:27:13 PM Referred By: BOZENA Anne d By:ANTONIO TOVAR MD 10/02/17 1327 Date Antonio Tovar MD CC: Nia Uriostegui DO; Jignesh Tello MD Signed 02-Oct-2017 12 Lead Electrocardiogram Result: Comments: See Note; NOTES: [facility] Cardiovascular Services [address] [place] [address] 12 Lead EKG 09/29/17 0926 MR#: [id number] Acct: [id number] Name: COMFORT OLSON Rep # : [id number] : 1940 76 From: Antonio Tovar MD [...] Confirmed by ZARA ROSAS, ANTONIO ([id number]), [place] (56) on 10/02/2017 1:26:27 PM Referr ed By: BOZENA Confirmed By:ANTONIO TOVAR MD 10/02/171325 Date Antonio Tovar MD CC: Nia Uriostegui DO; Jignesh Tello MD Signed 29-Sep-2017 Emergency Department Summary Result: Comments: See Note; NOTES: [facility] Medical Records Department [address] [place] [address] Emergency Department Summary 09/29/17 0912 MR#: [id number] Acct: [id number] Name: COMFORT OLSON Rep #: [id number] : 1940 76 From: Jignesh Tello MD [...] Sinus bradycardia. This note was generated with oboxo dictation software. It may contain incorrect words, [...] problems, contact your Primary Care Provider. Call [employer] [facility] ([phone]) or report to the closest Emergency Room. Call 911 if necessary. 09/29/17 6295 <Electronically si gned by Jignesh Tello MD> Date Jignesh Tello MD Cosigner Signature (If Indicated): Date CC: Nia Uriostegui DO 29-Sep-2017 Chest 1 View (Portable) Result: Comments: See Note; NOTES: [facility] Imaging Services [address] [place] [address] Chest 1 View (Portable) MR#: [id number] Acct: [id number] Name: COMFORT OLSON Rep #: [id number] : 1940 F 76 From: John Babcock MD PCP: Nia Uriostegui DO Status: REG ER Study: Chest 1 View (Portable) Date of Exam: 09/29/17 Exam# [id number] Ordering Dr: Jignesh Tello MD STUDY: X-RAY [...] John Babcock MD at 9:55 EDT Tel [phone], Service support , CC: Nia Uriostegui DO; Jignesh Tello MD Control Room Agent: Signed 25-Sep-2017 Cardiology Visit Report Result: Comments: See Note; NOTES: [facility] [address] [place] [address] OFFICE VISIT Date of Service: 09/25/17 MR#: [id number] Acct: [id number] Name: COMFORT OLSON p #: [id number] : 1940 Provider: Jonel Rashid MD Age/Sex: 76/F Location: [facility] Status: Signed HPI HPI Chief [...] Lt brachial Intake Visit Reasons: 6 M Flask Maker Required: No Accompanied by: nonw Is [...] BID 08/24/17 [History Confirmed 09/25/17] Met hscopolamine [place] 5 mg PO BID 08/24/17 [History Confirmed [...] enlargement, left (Chronic) Atherosclerotic heart disease of [place] coronary artery without angina pectoris (Chronic) HTN [...] only without the valsartan. 4. Atherosclerosis of [place] coronary artery of [place] heart without angina pectoris I25.10 08/06/2004 CA BG x2 VILLAGRAN side to side to second Diagonal and end to side to Anterior Descending artery in Sequential fashion. 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 transplan joel heart: [place] heart Mixed hyperlipidemia E78.2 Hyperlipidemia type: mixed hyperlipidemia Coding Level of Care Code Off vis,est,level 4 Diagnoses Paroxysmal atrial fibrillation I48.0 Cardiomyopath y in diseases classified elsewhere I43 Essential hypertension I10 Hypertension type: essential hypertension Atherosclerosis of [place] coronary artery of [place] heart without angina pectoris I25.10 [place] vs. transplanted heart: [place] heart Mixed hyperlipidemia E78.2 Hyperlipidemia type: mixed hyperlipidemia 09/25/17 1029 <Electronically signed by Jonel Rashid MD> Date __ Jonel Rashid MD Cosigner Signature: Date (if applicable) CC: Nia Uriostegui DO 26-Aug-2017 12 Lead Electrocardiogram Result: Comments: See Note; NOTES: [facility] Cardiovascular Services [address] [place] [address] 12 Lead EKG 08/24/17 1336 MR#: [id number] Acct: [id number] Name: COMFORT OLSON Rep # : [id number] : 1940 76 From: Jonel Rashid MD [...] lateral ischemia Abnormal ECG Confirmed by JONEL RASIHD MD ([id number]), [place] ([id number]) on 08/26/2017 1:37:24 PM Referred B y: YONI Confirmed By:JONEL RASHID MD 08/26/17 1337 Date Jonel Rashid MD CC: Nia Uriostegui DO; Alexis Kemp MD Signed 26-Aug-2017 12 Lead Electrocardiogram Result: Comments: See Note; NOTES: [facility] Cardiovascular Services [address] [place] [address] 12 Lead EKG 08/24/17 0956 MR#: [id number] Acct: [id number] Name: COMFORT OLSON Rep # : [id number] : 1940 76 From: Jonel Rashid MD [...] consider lateral ischemia Abnormal ECG Confirmed by GAY ROSAS, JONEL ([id number]), editor [place] AMIRA CASTRO ([id number]) on 08/26/2017 12:50:18 PM Referred By: YONI Confirmed By:JONEL RASHID MD 08/26/17 1250 Date Jonel Rashid MD CC: Nia Uriostegui DO; Alexis Kemp MD Signed 24-Aug-2017 Emergency Department Summary Result: Comments: See Note; NOTES: [facility] Medical Records Department [address] [place] [address] Emergency Department Summary 08/24/17 1336 MR#: [id number] Acct: [id number] Name: COMFORT OLSON Rep #: [id number] : 1940 76 From: Alexis Kemp MD [...] coronary disease This note was generated with oboxo dictation software. It may contain in correct [...] your Primary Care Provider. Call [facility] ([phone]) or report to the [facility] Emergency Room. Call 911 if necessary. 08/24/17 1340 <Electronically signed by Alexis Kemp MD> Date Alexis Villasenor Signsully re (If Indicated): Date CC: Jonel Rashid MD; Nia Uriostegui DO 24-Aug-2017 Chest PA and Lateral Result: Comments: See Note; NOTES: [facility] Imaging Services [address] [place] [address] Chest PA and Lateral MR#: [id number] Acct: [id number] Name: COMFORT OLSON Rep #: [id number] : 1940 F 76 From: Clyde Matute MD PCP: Nia Uriostegui DO Status: REG ER Study: Chest PA and Lateral Date of Exam: 08/24/17 Exam# [id number] Ordering Dr: Alexis Kemp MD STUDY: X-RAY [...] CC: Nia Uriostegui DO; Alexis Kemp MD Control Room Agent: Signed 02-Jun-2017 12 Lead EKG performed by [facility] Result: Comments: See Note; NOTES: [facility] [address] [place] [address] 12 Lead EKG performed by [facility] 06/02/17 1121 MR#: [id number] Acct: [id number] Name: COMFORT OLSON Rep #: [id number] : 1940 76 From: Annemarie BLOOD Attending Dr: Annemarie Parsons Status: DEP AMB Ordering Dr: Annemarie Parsons Date: 06/02/17 Location: [facility] Sex: F C Admitted: BMS/12 Lead EKG performed by [facility] ECG Report Interpretation Sinus Rhythm -Intraventricular conduction defect and left axis -possible anterior fas cicular block consider ventricular hypertrophy. - Nonspecific T-abnormality. ABNORMAL Electronically signed on 06/04/2017 at 14:14 by Jonel Rashid 06/04/17 1415 Date Annemarie BLOOD CC: Nia Uriostegui DO Date Dictated: 06/02/17 1121 Date Transcribed: 06/02/17 112 Control Room Agent: BARBY Signed 29-May-2017 Cardiology Visit Report Result: Comments: See Note; NOTES: [facility] [address] [place] [address] Catherine. [address] [place] [address] OFFICE VISIT Date of Service: 05/26/17 MR#: [id number] Acct: [id number] Name: COMFORT OLSNO Re p #: [id number] : 1940 Provider: Annemarie Parsons Age/Sex: 76/F Location: [facility] Status: Signed HPI HPI Details: COMFORT OLSON, [...] surgery in 2004. She had an VILLAGRAN zfmf-al-btml to second diagonal and to anterior descending [...] (BMI) 33.3 Intake Visit Reasons: per Susi Flask Maker Required: No Accompanied by: NONE Is patient in pain?: N o Allergies No Known Allergies Allergy (Verified 05/26/17 15:11) Medications Aspirin E.C. [Ecotrin] 325 mg PO DAILY@0800 11/11/16 [History Confirmed 05/26/17] Cholecalciferol (Vitamin D3) [Vitamin D3] 2,000 unit PO DAILY 11/11/16 [History Confirmed 05/26/17] Fluticasone/Salmeterol [Advair 500-50 Diskus] 1 puff INHALATION BID 11/11/16 [History Confirmed 05/26/17] Lansoprazole 30 mg PO DAILY 10/02/ 17 [History Confirmed 05/26/17] Linagliptin [Tradjenta] 5 mg PO DAILY 11/11/16 [History Confirmed 05/26/17] Methscopolamine [place] 5 mg PO BID 11/11/16 [History Confirmed [...] enlargement, left (Chronic) Atherosclerotic heart disease of [place] coronary artery without angina pectoris (Chronic) HTN [...] week for an EKG. 2. Atherosclerosis of [place] coronary artery of [place] heart without angina pectoris I25.10 08/06/2004 CABG x2 VILLAGRAN side to side to second Diagonal and end to side to Anterior [place] cending artery in Sequential fashion. [facility]: 08/01/2004; 10/15/2011 Plan - JEREMI Mcpherson [...] 1 Week (EKG) 05/26/17 (keep appt with CURATOR) Coding Level of Care Code Off vis,est,level 4 Diagnos es Dyspnea on exertion R06.09 Atherosclerosis of [place] coronary artery of [place] heart without angina pectoris I25.10 [place] vs. transplanted heart: [place] heart Essential hypertension I10 Hypertension type: essential hypertension Mixed hyperlipidemia E78.2 Hyperlipidemia type: mixed hyperlipidemia Paroxysmal atrial fibrillation I48.0 Atrial fibrillation type: paroxysmal Coding Level of Care Code O ff vis,est,level 4 Diagnoses Dyspnea on exertion R06.09 Atherosclerosis of [place] coronary artery of [place] heart without angina pectoris I25.10 [place] vs. transplanted heart: [place] heart Essential hy pertension I10 Hypertension type: essential hypertension Mixed hyperlipidemia E78.2 Hyperlipidemia type: mixed hyperlipidemia Paroxysmal atrial fibrillation I48.0 Atrial fibrillation type: paroxysmal 05/28/17 1018 <Electronically signed by Annemarie Parsons PA> Date Annemarie BLOOD 05/29/17 1417<Electronically si gned by Jonel Rashid MD> Cosigner Signature: Date (if applicable) Jonel Rashid MD CC: Nia Uriostegui DO 26-May-2017 12 Lead EKG performed by [facility] Result: Comments: See Note; NOTES: [facility] [address] [place] [address] 12 Lead EKG performed by [facility] 05/26/17 1521 MR#: [id number] Acct: [id number] Name: FRITZ COMFORT Lane Rep #: [id number] : 1940 76 From: Annemarie BLOOD Attending Dr: Annemarie Parsons Status: DEP AMB Ordering Dr: Annemarie Parsons Date: 05/26/17 Location: [facility] Sex: F C Admitted: BMS/12 Lead EKG performed by [facility] ECG Report Interpretation Marked sinus Bradycardia -Poor R-wave progression - nonspecific -consider old anterior infarct. -Nonspecific ST depression -Nondiagnostic. ABNORMAL Electronically signed on 05/27/2017 at 08:40 by Jonel Rashid 05/27/17 0841 Date Annemarie BLOOD CC: Nia Uriostegui DO Date Dictated: 05/26/17 1521 Date Transcribed: 05/26/17 152 Control Room Agent: BARBY Signed 16-May-2017 Office Visit Report Result: Comments: See Note; NOTES: [address] [address] OFFICE VISIT Date of Service: 05/16/17 MR#: [id number] Acct: [id number] Patient: COMFORT OLSON Rep #: [id number] : 1940 Provider: Jonel Rashid MD Age/Sex: 76/F Location: [facility] Status: Signed Intake Intake Visit Reasons: EKG [...] SON Y 11/11/16 [History Confirmed 05/14/17] Methscopolamine [place] 5 mg PO BID 11/11/16 [History Confirmed [...] today shows Sinus Bradycardia 58 bpm. Annemarie BLOOD-Kathleen reviewe d vitals and pt is to continue current medication therapy. 05/16/171649 <Electronically signed by Annemarie BLOOD> Date Eliel Muñoz Cosigner Signature: Date (if applicable) CC: Sarkis Orozco 16-May-2017 12 Lead EKG performed by [facility] Result: Comments: See Note; NOTES: [facility] [address] [place] [address] 12 Lead EKG performed by [facility] 05/16/171043 MR#: [id number] Acct: [id number] Name: COMFORT OLSON Rep #: [id number] : 1940 76 From: Annemarie BLOOD Attending Dr: Gay ROSAS,[place] Status: DEP AMB Ordering Dr: Annemarie Parsons Date: 05/16/17 Location: [facility] Sex: F C Adm itted: BMS/12 Lead EKG performed by [facility] Sinus Bradycardia -Poor R-wave progression -may be secondary to pulmonary isease consider old anterior infarct. Rightward P/QRS axis and rota tion possible pulmonary disease. ABNORMAL 05/16/171649 <Electronically signed by Annemarie BLOOD> Date Annemarie BLOOD CC: Nia Uriostegui DO Date Dictated: 05/16/171043 Date Transcribed: 05/16/171043 Control Room Agent: BARBY Signed 16-May-2017 12 Lead EKG performed by [facility] Result: Comments: See Note; NOTES: [facility] [address] [place] [address] 12 Lead EKG performed by [facility] 05/16/17 1044 MR#: [id number] Acct: [id number] Name: COMFORT OLSON Rep #: [id number] : 1940 76 From: Annemarie BLOOD Attending Dr: Jonel Rashid MD Status: DEP AMB Ordering Dr: Annemarie Parsons Date: 05/16/17 Location: [facility] Sex: F C Adm itted: BMS/12 Lead EKG performed by [facility] ECG Report Interpretation Sinus Bradycardia -Poor R-wave progression -may be secondary to pulmonary disease conside r old anterior infarct. Rightward P/QRS axis and rotation -possible pulmonary disease. ABNORMAL Electronically signed on 05/17/2017 at 18:31 by Jonel Rashid 05/17/17 1834 Date Annemarie BLOOD CC: Nia Uriostegui DO Date Dictated: 05/16/17 1044 Date Transcribed: 05/16/171043 Control Room Agent: BARBY Signed 14-May-2017 Cardiology Visit Report Result: Comments: See Note; NOTES: [facility] [address] [place] [address] OFFICE VISIT Date of Service: 05/14/17 MR#: [id number] Acct: [id number] Name: COMFORT OLSON Re p #: [id number] : 1940 Provider: Annemarie Parsons Age/Sex: 76/F Location: [facility] Status: Signed HPI HPI Details: COMFORT OLSON, is a 76 F who presents to the office today for an urgent appointm ent for increased shortness of breath. Patient does have a hospital of coronary artery disease with bypass surgery in 2004. She had an VILLAGRAN fzko-nl-dfvc to second diagonal and to anterior descending [...] 5 in Intake Visit Reasons: per MS Flask Maker Required: No Accompanied by: None Is [...] PO DAILY 11/11/16 [History Confirmed 05/14/17] Methscopolamine [place] 5 mg PO BID 11/11/16 [History Confirmed [...] PFSH Medical History Other secondary pulmonary hypertension (Media Services Coordinator rosemarie) Cardiomyopathy in diseases classified elsewhere (Chronic) Other cerebral infarction (Chronic) Paroxysmal atrial fibrillation (Chronic) Atrial enlargement, left (Chronic) Atherosclerotic heart disea se of [place] coronary artery without angina pectoris (Chronic) HTN [...] for an EKG 2. Ath erosclerosis of [place] coronary artery of [place] heart without angina pectoris I25.10 08/06/2004 CABG x2 VILLAGRAN side to side to second Diagonal and end to side to Anterior Descending artery in Sequential fashion. C: 08/01/2004; 10/15/2011 Plan - JEREMI Mcpherson Stable, [...] Diagnoses Paroxysmal atrial fibrillation I48.0 Atherosclerosis of [place] coronary artery of [place] heart without angina pectoris I25.10 [place] vs. transplanted heart: [place] heart Essential hy pertension I10 Hypertension type: essential hypertension Mixed hyperlipidemia E78.2 Hyperlipidemia type: mixed hyperlipidemia Coding Level of Care Code Off vis,est,level 4 Diagnoses Paroxysmal atrial fibrillation I48.0 Atherosclerosis of [place] coronary artery of [place] heart without angina pectoris I25.10 [place] vs. transplanted heart: [place] heart Essential hypertension I10 Hypertension type: ess ential hypertension Mixed hyperlipidemia E78.2 Hyperlipidemia type: mixed hyperlipidemia 05/14/17 1718 <Electronically signed by Annemarie BLOOD> Date Annemarei BLOOD 05/14/17 1732<Electronically signed by Jonel Rashid MD> Cosigner Signature: Date (if applicable) Jonel Rashid MD CC: Nia Thakkarolinda MCFARLAND 14-May-2017 12 Lead EKG performed by [facility] Result: Comments: See Note; NOTES: [facility] [address] [place] [address] 12 Lead EKG performed by [facility] 05/14/17 1104 MR#: [id number] Acct: [id number] Name: COMFORT OLSON Rep #: [id number] : 1940 76 From: Annemarie BLOOD Attending Dr: Annemarie Parsons Status: DEP AMB Ordering Dr: Annemarie Parsons Date: 05/14/17 Location: [facility] Sex: F C Admitted: BMS/12 Lead EKG performed by [facility] Marked sinus Bradycardia -Intraventricular conduction defect -consider left entricular hypertrophy. -Lateral infarct -age undetermined. - -abnormality -Possible Inferior and lateral ischemia. ABNORMAL 05/15/17 1041 <Electronically signed by Annemarie BLOOD> Date M farhan BLOOD CC: Nia Uriostegui DO Date Dictated: 05/14/171103 Date Transcribed: 05/14/171103 Control Room Agent: BARBY Signed 14-May-2017 12 Lead EKG performed by [facility] Result: Comments: See Note; NOTES: [facility] [address] [place] [address] 12 Lead EKG performed by [facility] 05/14/171103 MR#: [id number] Acct: [id number] Name: COMFORT OLSON Rep #: [id number] : 1940 76 From: Annemarie BLOOD Attending Dr: Annemarie Parsons Status: DEP AMB Ordering Dr: Annemarie Parsons Date: 05/14/17 Location: [facility] Sex: F C Admitted: BMS/12 Lead EKG performed by [facility] ECG Report Interpretation Marked sinus Bradycardia -Intraventricular conduction defect -consider left ventricul ar hypertrophy. -Lateral infarct -age undetermined. - T-abnormality -Possible Inferior and lateral ischemia. ABNORMAL Electronically signed on 05/17/2017 at 18:31 by Jonel Rashid 05/17/17 1834 Date __ Annemarie BLOOD CC: Nia Uriostegui DO Date Dictated: 05/14/171103 Date Transcribed: 05/14/171103 Control Room Agent: BARBY Signed 09-May-2017 Office Visit Report Result: Comments: See Note; NOTES: [facility] [address] [place] [address]. [place] [address] OFFICE VISIT Date of Service: 05/09/17 MR#: [id number] Acct: [id number] Patient: COMFORT OLSON Rep #: [id number] : 1940 Provider: Albert Kerr RN Age/Sex: 76/F Location: [facility] Status: Signed Intake Intake Visit Reasons: EKG 4 wk s/p per CURATOR Allergies No Known Allergies Allergy (Verified 05/04 [...] PO DAILY 11/11/16 [History Confirmed 04/19/17] Methscopolamine [place] 5 mg PO BID 11/11/16 [History Confirmed [...] Seaman 09-May-2017 12 Lead EKG performed by [facility] Result: Comments: See Note; NOTES: [facility] [address] [place] [address] 12 Lead EKG performed by [facility] 05/09/17 1110 MR#: [id number] Acct: [id number] Name: COMFORT OLSON Rep #: [id number] : 1940 76 From: Jonel Rashid MD Attending Dr: Albert Kerr RN Status: DEP AMB Ordering Dr: Jonel Rashid MD Date: 05/09/17 Location: [facility] Sex: F C Admitted: BMS/12 Lead EKG performed by [facility] ECG Report Interpretation Sinus Rhythm -Nonspecific QRS widening and anterior fascicular block. -Poor R-wave progression -nonspec ific -consider old anterior infarct. -Nonspecific ST depression -Nondiagnostic. ABNORMAL Electronically signed on 05/17/2017 at 18:31 by Jonel Rashid 05/17/17 1834 Date Jonel Rashid MD CC: Nia Uriostegui DO Date Dictated: 05/09/171109 Date Transcribed: 05/09/171109 Control Room Agent: CO Signed 09-May-2017 12 Lead EKG performed by [facility] Result: Comments: See Note; NOTES: [facility] [address] [place] [address] 12 Lead EKG performed by [facility] 05/09/171109 MR#: [id number] Acct: [id number] Name: COMFORT OLSON Rep #: [id number] : 1940 76 From: Jonel Rashid MD Attending Dr: Albert Kerr RN Status: DEP AMB Ordering Dr: Jonel Rashid MD Date: 05/09/17 Location: [facility] Sex: F C Admitted: BMS/12 Lead EKG performed by [facility] Sinus Rhythm -Nonspecific QRS widening and anterior fascicular block. -Poor -wave progression -nonspecific -consider old anterior infarct. -Nonspecific T d epression -Nondiagnostic. ABNORMAL 05/09/17 1610 <Electronically signed by Jonel Rashid MD> Date Jonel Rashid MD CC: Nia Beth O Date Dictated: 05/09/171109 Date Transcribed: 05/09/171109 Control Room Agent: CO Signed 06-May-2017 12 Lead Electrocardiogram Result: Comments: See Note; NOTES: [facility] Cardiovascular Services [address] [place] [address] 12 Lead EKG 05/04/17 2237 MR#: [id number] Acct: [id number] Name: COMFORT OLSON Rep # : [id number] : 1940 76 From: Jonel Rashid MD [...] Confirmed by JONEL RASHID MD ([id number]), editor [place] AMIRA CASTRO (56) on 05/06/2017 1:42:52 PM Referred By: DONY Confirmed By:JONEL RASHID MD 05/06/17 1342 Date Jonel Rashid MD CC: Natalya Napoles MD; Nia Uriostegui Signed 06-May-2017 12 Lead Electrocardiogram Result: Comments: See Note; NOTES: [facility] Cardiovascular Services [address] [place] [address] 12 Lead EKG 05/04/17 2045 MR#: [id number] Acct: [id number] Name: COMFORT OLSON Rep # : [id number] : 1940 76 From: Jonel Rashid MD [...] Confirmed by JONEL RASHID MD ([id number]), [place] AMIRA CASTRO (56) on 05/06/2017 1:08:29 PM Referred By: RICKY NAPOLES Confirmed By:JONEL RASHID MD 05/06/17 1308 Date Jonel Rashid MD CC: Natalya Napoles MD; Nia Uriostegui DO Signed 04-May-2017 Emergency Department Summary Result: Comments: See Note; NOTES: [facility] Medical Records Department [address] [facility] [place] [address] Emergency Department Summary 05/04/17 2259 MR#: [id number] Acct: [id number] Name: COMFORT OLSON Rep #: [id number] : 1940 76 From: Natalya Napoles MD [...] ED physician This note was generated with oboxo dictation software. It may contain incorre ct words, spelling, and punctuation that were not noted in review of the chart prior to signing ED Disposition - Plan for ED Patient: Chief Complaint: Palpitations Referrals: Nia Uriostegui, DO [[facility] Provider] - What to do if you have Problems For any increased pain, shortness of breath, bleeding, nausea or vomiting, chest pain, or any unexpected problems, contact your Primary Care Pro vider. Call [facility] ([phone]) or report to the closest Emergency Room. Call 911 if necessary. 05/04/17 4191 <Electronically signed by Natalya Napoles MD> Date Natalya Napoles MD Cosigner Signature (If Indicated): Date CC: Nia Uriostegui 04-May-2017 Discharge Instruction Result: Comments: See Note; NOTES: [facility] Medical Records Department [address] [place] [address] Discharge Instruction 05/04/172339 MR#: [id number] Acct: [id number] Name: Liyah OLSON Rep #: [id number] : 1940 76 From: Natalya Napoles MD [...] your Primary Care Provider. Call [facility] ([phone]) or report to the closest Emergency Room. Call 911 if necessary. 05/04/172340 <Electronically signed by Natalya Napoles MD> Date Natalya mary MD Cosigner Signature (If Indicated): Date CC: Niashahriar Uriostegui 04-May-2017 Chest 1 View (Portable) Result: Comments: See Note; NOTES: [facility] Imaging Services [address] [place] [address] Chest 1 View (Portable) MR#: [id number] Acct: [id number] Name: COMFORT OLSON Rep #: [id number] : 1940 F 76 From: Rafael Perez MD PCP: Nia Uriostegui DO Status: REG ER Study: Chest 1 View (Portable) Date of Exam: 05/04/17 Exam# [id number] Ordering Dr: Natalya Napoles MD STUDY: X [...] CC: Natalya Napoles MD; Nia Uriostegui DO Control Room Agent: Signed 19-Apr-2017 Emergency Department Summary Result: Comments: See Note; NOTES: [facility] Medical Records Department [address] [place] [address] Emergency Department Summary 04/19/17 1757 MR#: [id number] Acct: [id number] Name: COMFORT OLSON Rep #: [id number] : 1940 76 From: Deisi Ryan MD [...] with RVR This note was generated with [employer] [place] software. It may contain incorrect words, spelling, [...] your Primary Care Provider. Call [facility] ([phone]) or report to the closest Emergency Room. Call 911 if necessary. 04/19/171930 <Electronically signed by Deisi moscoso MD> Date Deisi Ryan MD Cosigner Signature (If Indicated): Date CC: Nia Uriostegui DO 19-Apr-2017 Chest 1 View (Portable) Result: Comments: See Note; NOTES: [facility] Imaging Services [address] [place] [address] Chest 1 View (Portable) MR#: [id number] Acct: [id number] Name: COMFORT OLSON Rep #: [id number] : 1940 F 76 From: Thanh Ambriz MD PCP: Nia Uriostegui DO Status: PRE ER Study: Chest 1 View (Portable) Date of Exam: 04/19/17 Exam# [id number] Ordering Dr: Deisi Ryan MD STUDY: X- [...] CC: Deisi Ryan MD; Nia Uriostegui DO Control Room Agent: Signed 14-Mar-2017 Cardiology Visit Report Result: Comments: See Note; NOTES: [facility] [address] [place] [address] OFFICE VISIT Date of Service: 03/14/17 MR#: [id number] Acct: [id number] Name: COMFORT OLSON p #: [id number] : 1940 Provider: JOSSELYN Lombardo Age/Sex: 76/F Location: [facility] Status: Signed HPI 3 M FU: Details: [...] less than 30% stenosis. Patient returned to Dental Laboratory Technician approximately one week later and showed a [...] Intak e Visit Reasons: 3 M FU Flask Maker Required: No Accompanied by: None Is [...] DAILY 11/11/16 [History Confirmed 02/28/17] M ethscopolamine [place] 5 mg PO BID 11/11/16 [History Confirmed [...] enlargement, left (Chronic) Atherosclerotic heart disease of [place] coronary artery without cynthia na pectoris (Chronic) [...] Essential hypertension I10 Plan - SEEMA Spence Saurabh lynch's blood pressures on the higher end today. [...] updated BP readings. 3. Atheroscle rosis of [place] coronary artery of [place] heart without angina pectoris I25.10 08/06/2004 CABG x2 VILLAGRAN side to side to second Diagonal and end to side to Anterior Descending artery in Sequential fashion . C: 08/01/2004; 10/15/2011 Plan - SEEMA Spence Patient's most recent heart catheterization is noted above. Patient denies any chest pain, arm pain, jaw pain, neck pain, shortness of breath, or fatigue suggestive of angina at this time. We will continue to monitor this. We will not make any medication regimen changes and will continue risk factor modification. 4. Paroxysmal atrial fibrillatio n I48.0 SEEMA Pan Patient appears to be maintaining a regular [...] to sa lance. Follow Up 6 Months (CURATOR) Coding Level of Care Code Off vis,est,level 3 Diagnoses Essential hypertension I10 Hypertension type: essential hypertension Cardiomyopathy in diseases classified elsew here I43 Atherosclerosis of [place] coronary artery of [place] heart without angina pectoris I25.10 [place] vs. transplanted heart: [place] heart Paroxysmal atrial fibrillation I48.0 Mixed hyperlipidemia E7 8.2 Hyperlipidemia type: mixed hyperlipidemia Coding Level of Care Code Off vis,est,level 3 Diagnoses Essential hypertension I10 Hypertension type: essential hypertension Cardiomyopathy in diseases c lassified elsewhere I43 Atherosclerosis of [place] coronary artery of [place] heart without angina pectoris I25.10 [place] vs. transplanted heart: [place] heart Paroxysmal atrial fibrillation I48.0 Mixed hy perlipidemia E78.2 Hyperlipidemia type: mixed hyperlipidemia 03/14/17 1154 <Electronically signed by Richard FREGOSOC> Date Richard Lombardo INSOLE CHANNELER-C 03/14/17 1527<Electronically signed by Jonel Rashid MD> Cosigner Signature: Date (if applicable) Jonel Rashid MD CC: Nia Uriostegui DO 10-Mar-2017 Echo, Complete w/ Contrast Result: Comments: See Note; NOTES: [facility] Cardiovascular Services [address] [place] [address] Echo Complete W/ Contrast 03/10/17 1008 MR#: [id number] Acct: [id number] Name: COMFORT JONES Rep #: [id number] : 1940 76 From: Jonel Rashid MD Attending Dr: Jonel Rashid MD Status: REG CLI Ordering Dr: Jonel Rashid MD Date: 03/10/17 Location: [facility] Sex: F C Admitted: [...] 03/10/17 1008 Date Transcr ibed: 03/10/17 1412 Control Room Agent: Signed 13-Nov-2016 CTA Chest W/WO Contrast Result: Comments: See Note; NOTES: [facility] Imaging Services [address] [place] [address] CTA Chest W/WO Contrast MR#: [id number] Acct: [id number] Name: COMFORT OLSON Rep #: [id number] : 1940 F 75 From: Charly Almendarez DO PCP: Nia Uriostegui DO Status: REG ER Study: CTA Chest W/WO Contrast Date of Exam: 11/13/16 Exam# [id number] Ordering Dr: Emery Allen MD STUDY: CTA [...] EDT Tel , Service support , CC: Eemry Allen MD; Nia Uriostegui DO Control Room Agent: Signed 11-Nov-2016 Chest 1 View (Portable) Result: Comments: See Note; NOTES: [facility] Imaging Services [address] [place] [address] Chest 1 View (Portable) MR#: [id number] Acct: [id number] Name: COMFORT OLSON Rep #: [id number] : 1940 F 75 From: Jorge Herman MD PCP: Nia Uriostegui DO Status: REG ER Study: Chest 1 View (Portable) Date of Exam: 11/11/16 Exam# [id number] Ordering Dr: Jignesh Tello MD STUDY: X-RA [...] , Service support , CC: Nia vo ; Jignesh Tello MD Control Room Agent: Signed 16-Jan-2016 Chest PA and Lateral Result: Comments: See Note; NOTES: [facility] Imaging Services [address] [place] [address] Verda 4d Chest PA and Lateral MR#: [id number] Acct: [id number] Name: COMFORT OLSON Rep #: [id number] : 1940 F 75 From: John Babcock MD PCP: Balbir Cramer Status: REG CLI Study: Chest PA and Lateral Date of Exam: 01/16/16 Exam# [id number] Ordering Dr: Balbir Cramer STUDY: X-RAY CHEST [...] John Babcock MD at 13:26 EST Tel [phone], Service support , CC: Balbir Cramer Control Room Agent: Signed 14-Dec-2014 Bilat Scrn Digital AND CAD Result: Comments: See Note; NOTES: [facility] Imaging Services [address] [place] [address] Verdana 4d Bilat Scrn Digital AND CAD MR#: [id number] Acct: [id number] Name: COMFORT OLSON Rep #: [id number] : 1940 F 74 From: John Babcock MD PCP: Maylin Melendez DO Status: REG CLI Study: Bilat Scrn Digital AND CAD Date of Exam: 12/14/14 Exam# [id number] Ordering D r: Maylin Melendez DO MAMMOGRAPHY [...] John Babcock MD at 14:05 EST Tel [phone], Service support [phone], CC: Maylin Melendez DO Control Room Agent: Signed 14-Dec-2014 Carotid Duplex Ultrasound Result: Comments: See Note; NOTES: [facility] Cardiovascular Services [address] [place] [address] Carotid Duplex Ultrasound 12/12/14 1007 MR#: [id number] Acct: [id number] Name: COMFORT OLSON Rep #: [id number] : 1940 74 From: Darian Anderson MD Attending Dr: Maylin Melendez DO Status: REG CLI Ordering Dr: Maylin Melendez DO Date: 12/12/14 Location: [facility] Sex: F C Admi [...] the left vertebral artery. Procedure Carotid Duplex 19569. Exam performed in department. Interpreta tion Summary [...] DO Date Dictated: 12/12/14 1007 Date Transcribed: 12/14/14736 Control Room Agent: Signed 25-Apr-2014 Nuclear Stress Test - Chemical Result: Comments: See Note; NOTES: [facility] Imaging Services [address] [place] [address] Nuclear Medicine Report MR#: [id number] Acct: [id number] Name: COMFORT OLSON Rep #: [id number] : 1940 F 73 From: Jonel Rashid MD PCP: Maylin Melendez DO Status: REG CLI Study: Nuclear Stress Test - Chemical Date of Exam: 04/25/14 Exam# [id number] Ordering Dr: Jonel Rashid MD P HARMACOLOGIC [...] CC: Jonel Rashid MD; Maylin Melendez DO Control Room Agent: CALIX Signed 31-Jan-2014 Spirometry (68158) Comments: Moderate restriction similar to previous Result: 14-Jan-2014 Chest PA and Lateral Result: Comments: See Note; NOTES: [facility] Imaging Services [address] [place] [address] Radiology Report MR#: [id number] Acct: [id number] Name: COMFORT OLSON Rep #: [id number] : 1940 F 73 From: John Babcock MD PCP: Maylin Melendez DO Status: REG CLI Study: Chest PA and Lateral Date of Exam: 01/14/14 Exam# [id number] Ordering Dr: Sherrie Amor STUDY: X-RAY CH [...] John Babcock MD at 14:58 EST Tel [phone], Service support [phone], RAD/Chest PA and Lateral IMPRESSION: Mild increased markings at the lung bases suggestive of linear atelectasis. Electronica lly Signed: John Bacbock MD at 14:58 EST Tel [phone], Service support [phone], CC: Sherrie Amor; Maylin Melendez DO Control Room Agent: Signed 07-Sep-2013 Knee 4 or More Views Result: Comments: See Note; NOTES: [facility] Imaging Services [address] [place] [address] Radiology Report MR#: [id number] Acct: [id number] Name: COMFORT OLSON Rep #: [id number] : 1940 F 72 From: Yusuf Lopes PCP: Maylin Melendez DO Status: REG CLI Study: Knee 4 or More Views Date of Exam: 09/07/13 Exam# [id number] Ordering Dr: Maylin Melendez DO STUDY: X-RAY [...] Yusuf Lopes MD at 4:00 EDT Tel [phone] , Service support [phone] , CC: Maylin Melendez DO Control Room Agent: Signed 22-Aug-2013 Carotid Duplex Ultrasound Result: Comments: See Note; NOTES: [facility] Cardiovascular Services [address] [place] [address] Carotid Duplex Ultrasound 08/20/13 0945 MR#: [id number] Acct: [id number] Nam e: COMFORT OLSON Rep #: [id number] : 1940 72 From: Darian Anderson MD [...] the left vertebral artery. Procedure Carotid Duplex 95299. Exam performed in [facility] ent. Interpretation Summary Mild (<50%) stenosis right extracranial internal carotid. Mild (<50%) stenosis left extracranial internal carotid. Flow within the vertebral arteries is antegrade bilaterally. Ordering Physician: Maylin Melendez Performed By: Sanaz Sheth RVT : Maylin Melendez DO Date Dictated: 08/20/13 0945 Date Transcribed: 08/22/13 0848 Control Room Agent: Signed 09-Jul-2013 Chest PA and Lateral Result: Comments: See Note; NOTES: [facility] Imaging Services [address] [place] [address] Radiology Report MR#: [id number] Acct: [id number] Name: COMFORT OLSON Rep #: [id number] : 1940 F 72 From: Jermaine Khan DO PCP: Maylin Melendez DO Status: REG CLI Study: Chest PA and Lateral Date of Exam: 07/09/13 Exam# [id number] Ordering Dr: Sherrie Amor STUDY: X-RAY CHEST [...] Jermaine Khan DO at 22:50 EDT Tel [phone] , Service support [phone], CC: Sherrie Amor; Maylin Melendez DO Control Room Agent: Signed 08-Jan-2013 PT Discharge Summary Result: Comments: See Note; NOTES: [facility] Physical Therapy [facility] [address] [place] [address]. [address] [place] [address] Fax REHABILITATION SERVICES DISCHARGE SUMMARY MR#: [id number] Acct: [id number] Name: COMFORT OLSON Rep #: [id number] : 1940 72 From: Farrukh Hull Referring [...] has. Farrukh Hull, PT T: NTS JOB: [id number] <Electronically signed by Farrukh Hull > 01/08/13 0648 CC: * Signed 18-Dec-2012 Inital Evaluation - PT Result: Comments: See Note; NOTES: [facility] Physical Therapy [facility] 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 No obvious nystagmus. Right- sided Hallpike Winfred test is positive for dizziness of approximately [...] therapy. Farrukh Hull, PT T: NTS JOB: [id number] <Electronically signed by Farrukh Hull > 12/18/12 1151 CC: Signed For Medicare only, by signing this I certify the plan of care. 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 Status: Active Smoking Status Name Dates Details Never smoker Vital Signs Date Test Result Details :19 Temperature 97.9 f Comments: Method: Temporal [...] kg/m2 Body Surface Area Calculated 1.93 m2 15-Tvc-248202:11 Pulse 70 /min Comments: Pattern: Regular Respiration [...] kg/m2 Body Surface Area Calculated 1.92 m2 3-Nub-068308:27 Pulse 70 /min Comments: Pattern: Regular Respiration [...] kg/m2 Body Surface Area Calculated 2 m2 14-Acs-457994:11 Comments: Recheck BP 158/82 Temperature 100 f [...] 0.00 cm Results Date Description Value Details :55 Basic Metabolic Profile (BMP) Comments: [facility] [address] [place], [place], [phone] GAP 14 (Normal) Range: 5-15 CO2 23.0 [...] A.D.A. criteria.Please note revised GLUCOSE reference range hgmzjycch92/02/2018. 49-Rvj-33888:55 CBC W/Diff, Automated Comments: [facility] [address] [place], [place], [address] Absolute Lymph 2.08 {X10_3/ul} (Normal) Range: 0.83-4.51 [...] 4.2-5.4 WBC 8.7 K/mm3 (Normal) Range: 4.4-11.0 64-Maa-53161:55 Troponin-I Comments: [facility] [address] [place], [place], [address] TROPONIN-I < 0.015 ng/mL (Normal) Comments: TROPONIN-I EXPECTED VALUES <0.045 Negative 0.045 - 0.590 Consistent with Cardiac Damage > OR = 0.600 Critical Value Not every elevated troponin is indicative of CO. T hesevalues should be used with clinical judgement in examiningthe patient's clinical picture for diagnosis. To establisha diagnosis of CO versus myocardial injury, there must be ademonstrated rise and/ or fall in the troponin values, inaddition to ischemic symptoms, EKG changes, new regionalwall motion abnormality, and/or angiographical evidence. PLEASE NOTE: REFERENCE RANGES EDITED 17:05 Basic Metabolic Profile (BMP) Comments: [facility] [address] [place], [place], [address] GAP 8 (Normal) Range: 5-15 CO2 28.0 [...] criteria.Please note revised GLUCOSE reference range /02/2018. :05 CBC W/Diff, Automated Comments: [facility] [address] [place], [place], [address] Absolute Lymph 2.24 {X10_3/ul} (Normal) Range: 0.83-4.51 [...] K/mm3 (Normal) Range: 4.4-11.0 :05 Troponin-I Comments: [facility] [address] [facility]. [place], [place], [address] TROPONIN-I 0.020 ng/mL (Normal) Comments: TROPONIN-I EXPECTED VALUES <0.045 Negative 0.045 - 0.590 Consistent with Cardiac Damage > OR = 0.600 Critical Value Not every elevated troponin is indicative of CO. T hesevalues should be used with clinical judgement in examiningthe patient's clinical picture for diagnosis. To establisha diagnosis of CO versus myocardial injury, there must be ademonstrated rise and/ or fall in the troponin values, inaddition to ischemic symptoms, EKG changes, new regionalwall motion abnormality, and/or angiographical evidence. PLEASE NOTE: REFERENCE RANGES EDITED 06/23/1727-Aug-201791-Jbd-082232:18 HgA1C , Office (52017) HgA1C , Office 7.6 % (Abnormal) Range: 4.6 - 7.1 :18 Blood Glucose , Office (99060) Blood Glucose , Office 142 (Normal) :51 Basic Metabolic Profile (BMP) Comments: [facility] [address] [place], [place], [address] GAP 9 (Normal) Range: 5-15 CO2 25.0 [...] A.D.A. criteria.Please note revised GLUCOSE reference range yklsbnbne32/02/2018. :51 CBC W/Diff, Automated Comments: [facility] [address] [place], [place], [address] Absolute Lymph 2.43 {X10_3/ul} (Normal) Range: 0.83-4.51 [...] 4.2-5.4 WBC 9.6 K/mm3 (Normal) Range: 4.4-11.0 78-Hqm-08094:51 Troponin-I Comments: [facility] [address] [place], [address] TROPONIN-I < 0.015 ng/mL (Normal) Comments: TROPONIN-I EXPECTED VALUES <0.045 Negative 0.045 - 0.590 Consistent with Cardiac Damage > OR = 0.600 Critical Value Not every elevated troponin is indicative of CO. T hesevalues should be used with clinical judgement in examiningthe patient's clinical picture for diagnosis. To establisha diagnosis of CO versus myocardial injury, there must be ademonstrated rise and/ or fall in the troponin values, inaddition to ischemic symptoms, EKG changes, new regionalwall motion abnormality, and/or angiographical evidence. PLEASE NOTE: REFERENCE RANGES EDITED 06/23/1728-May-201784-Fyj-465709:47 CALCIFEDIOL (54623) Comments: PATIENT NOT FASTINGPERFORMED BY: [facility] Hospital[facility]znyt7438 [facility] [id number] Vitamin D, 25-Hydroxy 20.2 ng/mL (Abnormal) Range: 30.0-100.0 Comments: Vitamin D deficiency has been defined by the [place] ofMedicine and an Endocrine Society practice guideline as alevel of serum 25-OH vitamin D less than 20 ng/mL (1,2).The Endocrine Society went on to further define vitamin Dinsufficiency as a level between 21 and 29 ng/mL (2).1. IOM ([place] of Medicine). 2010. Dietary reference intakes for calcium and D. [place]: The National Academies Press.2. Bobo MF, Estrellita STOCKTON, Maddi CALIX, et al. Evaluation, treatment, and prevention of vitamin D deficiency: an Endocrine Society clinical practice guideline. JCEM. 2010; 96(7):1911-30. 87-Gtq-436767:47 VITAMIN B-12 (CYANOCOBALAMIN) Comments: PATIENT NOT FASTINGPERFORMED BY: [facility] HospitalHndmhx3202 [facility] [id number] (26116) Vitamin B12 311 pg/mL (Normal) Range: 232-1245 57-Unc-279622:26 HgA1C , Office (57792) HgA1C , Office 7.3 % (Abnormal) Range: 4.6 - 7.1 34-Ija-959727:26 Blood Glucose , Office (50450) Blood Glucose , Office 136 (Normal) 46-Zhu-566887:56 Basic Metabolic Profile (BMP) Comments: 'TROP' Serial specimen #1, #2, #3, or #4: 1[facility] [address] [place], [address] GAP 11 (Normal) Range: 5-15 CO2 27.0 [...] A.D.A. criteria.Please note revised GLUCOSE reference range npbnilmlz11/02/2018. 99-Hre-857151:56 CBC W/Diff, Automated Comments: [facility] [address] [place], [place], [address] Absolute Lymph 3.30 {X10_3/ul} (Normal) Range: 0.83-4.51 [...] 4.2-5.4 WBC 9.3 K/mm3 (Normal) Range: 4.4-11.0 68-Waz-195487:56 Troponin-I Comments: 'TROP' Serial specimen #1, #2, #3, or #4: [address] [place] [address] [address] [place], [place], [address] TROPONIN-I < 0.02 ng/mL (Normal) Comments: TROPONIN-I EXPECTED VALUES <0.05 NEGATIVE 0.06 - 0.59 AT RISK OF CO > OR = 0.60 SUGGEST CO 55-Qpt-859977:33 Basic Metabolic Profile (BMP) Comments: 'TROP' Serial specimen #1, #2, #3, or #4: [address] [place] [address] [place], [place], [address] GAP 10 (Normal) Range: 5-15 CO2 25.0 [...] A.D.A. criteria.Please note revised GLUCOSE reference range yswfldrlp20/02/2018. 05-Bja-070011:33 CBC W/Diff, Automated Comments: [facility] [address] [place], [place], [address] Absolute Lymph 3.48 {X10_3/ul} (Normal) Range: 0.83-4.51 [...] 4.2-5.4 WBC 10.4 K/mm3 (Normal) Range: 4.4-11.0 51-Pvx-995833:33 Troponin-I Comments: 'TROP' Serial specimen #1, #2, #3, or #4: 1[facility] [address] [place], [place], [address] TROPONIN-I 0.14 ng/mL (Abnormal) Comments: TROPONIN-I EXPECTED VALUES <0.05 NEGATIVE 0.06 - 0.59 AT RISK OF CO > OR = 0.60 SUGGEST CO 2-Yws-971559:16 HgA1C , Office (45483) HgA1C , Office 7.9 % (Abnormal) Range: 4.6 - 7.1 8-Stz-279162:15 Blood Glucose , Office (89417) Blood Glucose , Office 166 (Normal) 7-Gzo-427478:25 Basic Metabolic Profile (BMP) Comments: Order Date: 12/13/16Order Info: 0667-1 - *BMPComments: Reason:[facility] [address] [place], [place], [address] GAP 9 (Normal) Range: 5-15 CO2 29.0 [...] 200 mg/dLsuggests DIABETES MELLITUS per A.D.A. criteria. 61-Ivt-840845:27 Basic Metabolic Profile (BMP) Comments: Order Date: 11/19/16Order Info: 0667-1 - *BMPComments: Reason:[facility] [address] [place], [place], [address] GAP 8 (Normal) Range: 5-15 CO2 27.0 [...] 200 mg/dLsuggests DIABETES MELLITUS per A.D.A. criteria. 93-Hnb-232677:27 Partial Thromboplast Time Comments: Order Date: 11/19/16Order Info: 6301-6 - *PT/INROrder Info: 53446-6 - *P[facility] [address]wgtl[address] [place], [place], [address] PTT 29.4 s (Normal) Range: 24.1-36.2 :27 Prothrombin Time w/INR Comments: Order Date: 11/19/16Order Info: 6301-6 - *PT/INROrder Info: 49831-6 - *PTT-Partial Thromboplastin TimeWMer[facility] [address] [place], [place], [address](596) INR 1.1 (Normal) PROTIME 13.4 s (Normal) Range: 11.7-14.9 :05 Basic Metabolic Profile (BMP) Comments: 'TROP' Serial specimen #1, #2, #3, or #4: 1[facility] [address] [place], [place], [address] GAP 10 (Normal) Range: 5-15 CO2 25.0 [...] A.D.A. criteria. :05 BNP,B-Type NATRIURETIC PEPTIDE Comments: [facility] [address] [facility] [place], [place], [address] B-TYPE ANDREW PEP 316.0 pg/mL (Abnormal) Range: 0-100 :05 CBC W/Diff, Automated Comments: [facility] [address] [facility] [place], [place], [address] Absolute Lymph 1.26 {X10_3/ul} (Normal) Range: 0.83-4.51 [...] Serial specimen #1, #2, #3, or #4: [address] [place] [address] [address] [place], [address] TROPONIN-I 0.15 ng/mL (Abnormal) Comments: TROPONIN-I EXPECTED VALUES <0.05 NEGATIVE 0.06 - 0.59 AT RISK OF CO > OR = 0.60 SUGGEST CO 3-Xea-032717:10 Basic Metabolic Profile (BMP) Comments: 'TROP' Serial specimen #1, #2, #3, or #4: [address] [place] [address] [address] [place], [address] GAP 13 (Normal) Range: 5-15 [...] A.D.A. criteria. :10 CBC W/Diff, Automated Comments: [facility] [address] [place], [address] Absolute Lymph 2.88 {X10_3/ul} (Normal) Range: 0.83-4.51 [...] Serial specimen #1, #2, #3, or #4: 1[facility] [address] [place], [address] TSH 1.29 {uIU/mL} (Normal) Range: 0.358-3.74 :10 Troponin-I Comments: 'TROP' Serial specimen #1, #2, #3, or #4: 1[facility] [address]hew44[address] [place], [address] TROPONIN-I < 0.02 ng/mL (Normal) Comments: TROPONIN-I EXPECTED VALUES <0.05 NEGATIVE 0.06 - 0.59 AT RISK OF CO > OR = 0.60 SUGGEST CO :58 HgA1C , Office (54364) HgA1C , Office 7.6 % (Abnormal) Range: 4.6 - 7.1 :58 Blood Glucose , Office (77185) Blood Glucose , Office 159 (Normal) :50 CBC W/Diff, Automated Comments: [facility] [address] [place], [address] Absolute Lymph 1.46 {X10_3/ul} (Normal) [...] 4.2-5.4 WBC 7.3 K/mm3 (Normal) Range: 4.4-11.0 65-Oxh-467071:50 CCP IgG Antibodies Comments: [facility] (refer to report for specific site)refer to report for address and phone number ANTI-CCP 178139 4 {units} (Normal) Range: 0-19 Comments: Negative <20 Weak positive 20 - 39 Moderate positive 40 - 59 Strong positive >59 93-Rzx-368071:50 Comprehensive Metabolic Profil Comments: [facility] [address] [place], [address] GAP 9 (Normal) Range: 5-15 CO2 26.0 [...] 126 mg/dLsuggests DIABETES MELLITUS per A.D.A. criteria. 91-Lri-160889:50 CRP Comments: [facility] [address] [facility] [place], [place], [address] C-REACTIVE PROT 8.89 mg/L (Abnormal) Range: 0.0-3.0 Comments: C-Reactive Protein (CRP) provides useful information for thediagnosis, therapy and monitoring of inflammatory processesand associated diseases. For the evaluation of Relative Riskfor Cardiovascular Dise ase, a High Sensitivity CRP (HSCRP)should be ordered. 61-Oyd-647585:50 Erythrocyte Sed Rate Comments: [facility] [address] [facility] [place], [place], [address] SED RATE 27 mm/h (Normal) Range: 0-30 82-Mha-644005:50 Hep B Surface Antibodies Comments: [facility] (refer to report for specific site)refer to report for address and phone number Hep B Booker AB Non Reactive (Normal) Comments: Non Reactive: Inconsistent with immunity, less than 10 mIU/mL Reactive: Consistent with immunity, greater than 9.9 mIU/ mL 99-Cwy-197575:50 Hepatitis B Surface Ag Comments: [facility] (refer to report for specific site)refer to report for address and phone number HB SURF AG Negative (Normal) Comments: Performed at: CB - [facility] [address] [id number] Director: Christopher Sullivan PhD, Phone: [phone] at: - [facility] [address] [id number] Director: Loco Ivey MD, Phone: [phone] 77-Zed-590119:50 Hepatitis C Antibodies Comments: [facility] (refer to report for specific site)refer to report for address and phone number HEP C AB <0.1 {s/co_ratio} (Normal) Range: 0.0-0.9 Comments: Negative: < 0.8 Indeterminate: 0.8 - 0.9 Positive: > 0.9 The CDC recommends that a positive HCV antibody result be followed up with a HCV Nucleic Acid Amplification test (452130). :50 Rheumatoid Factor Comments: [facility] [address] [place], [address] RHEUMATOID FAC < 10.0 {IU/mL} (Normal) :50 Uric Acid Comments: [facility] [address] [place], [address] URIC 7.1 mg/dL (Abnormal) Range: 2.6-6.0 Comments: The drugs N-Acetylcysteine and Metamizole may falselydepress this assay. :03 Unable to Void SPRCS (Normal) Comments: PATIENT WAS FASTINGPERFORMED BY: [employer] [facility] [id number] Comments: The patient was not able to render a urine sample and has beeninstructed to return for a urine collection at their earliestconvenience. The urine testing that you have requested hasbeen deleted from th is report. When the patient returns andprovides a urine specimen, the urine testing will be performedand separately reported. :03 VITAMIN B-12 (CYANOCOBALAMIN) Comments: PATIENT WAS FASTINGPERFORMED BY: [employer] [id number] (22082) Vitamin B12 264 pg/mL (Normal) Range: 211-946 :03 METABOLIC PANEL, COMPREHENSIVE Comments: PATIENT WAS FASTINGPERFORMED BY: [employer] [facility] [id number] (37008) ALT (SGPT) 7 [iU]/L (Normal) Range: 0-32 [...] mg/dL (Abnormal) Range: 65-99 :03 LIPID PANEL (28146) Comments: PATIENT WAS FASTINGPERFORMED BY: [facility] [id number] VLDL Cholesterol Jyoti VLDLCH mg/dL (Normal) Range: 5-40 Comments: The calculation for the VLDL cholesterol is not valid whentriglyceride level is >400 mg/dL.Triglyceride result indicated is too high for an accurate LDLcholesterol estimation. HDL Cholesterol 26 mg/dL (Abnormal) Triglycerides 542 mg/dL (Abnormal) Range: 0-149 Cholesterol, Total 183 mg/dL (Normal) Range: 100-199 :03 CBC W/AUTO DIFF WBC (48168) Comments: PATIENT WAS FASTINGPERFORMED BY: [employer] [id number] Immature Grans (Abs) 0.0 {x10E3/uL} (Normal) Range: [...] 3.77-5.28 WBC 8.1 {x10E3/uL} (Normal) Range: 3.4-10.8 45-Mgt-541557:48 HgA1C , Office (16430) HgA1C , Office 8.0 % (Abnormal) Range: 4.6 - 7.1 :48 Blood Glucose , Office (01862) Blood Glucose , Office 166 (Normal) 4-Lnj-492987:06 CALCIFEDIOL (74004) Comments: PATIENT NOT FASTINGPERFORMED BY: [facility] HospitalTrbowd4411 [facility] [id number] Vitamin D, 25-Hydroxy 51.1 ng/mL (Normal) Range: 30.0-100.0 Comments: Vitamin D deficiency has been defined by the [place] [facility] and an Endocrine Society practice guideline as alevel of serum 25-OH vitamin D less than 20 ng/mL (1,2).The Endocrine Society went on to further define vitamin Dinsufficiency as a level between 21 and 29 ng/mL (2).1. IOM ([place] of Medicine). 2010. Dietary reference intakes for calcium and D. [place]: The National Academies Press.2. Bobo MF, Estrellita STOCKTON, Maddi CALIX, et al. Evaluation, treatment, and prevention of vitamin D deficiency: an Endocrine Society clinical practice guideline. JCEM. 2010; 96(7):9581-30. 6-Rqk-455441:06 CBC, PLATELETS & AUT DIFF Comments: PATIENT NOT FASTINGPERFORMED BY: [facility] Hlepkz0630 [facility] [id number] (87058) Immature Grans (Abs) 0.0 {x10E3/uL} (Normal) Range: [...] (Normal) Range: 3.4-10.8 :36 HgA1C , Office (66425) HgA1C , Office 8.0 % (Abnormal) Range: 4.6 - 7.1 :36 Blood Glucose , Office (07673) Blood Glucose , Office 155 (Normal) :39 METABOLIC PANEL, COMPREHENSIVE Comments: PATIENT WAS FASTINGPERFORMED BY: LabCoSaint James HospitalIhqpkf5408 [facility] [id number] (41140) ALT (SGPT) 6 [iU]/L (Normal) Range: 0-32 [...] mg/dL (Abnormal) Range: 65-99 :39 LIPID PANEL (75708) Comments: PATIENT WAS FASTINGPERFORMED BY: SnapchatSaint James HospitalPrikvu4324 [facility] [id number] LDL/HDL Ratio 3.6 {ratio_units} (Abnormal) Range: 0.0-3.2 Comments: LDL/HDL Ratio Men Women 1/2 Avg.Risk 1.0 1.5 Av g.Risk 3.6 3.2 2X Avg.Risk 6.2 5.0 3X Avg.Risk 8.0 6.1 LDL Cholesterol Calc 104 mg/dL (Abnormal) Range: 0-99 VLDL Cholesterol Jyoti 72 mg/dL (Abnormal) Range: 5-40 HDL Cholesterol 29 mg/dL (Abnormal) Triglycerides 359 mg/dL (Abnormal) Range: 0-149 Cholesterol, Total 205 mg/dL (Abnormal) Range: 100-199 90-Vmc-768937:49 Blood Glucose , Office (47159) Blood Glucose , Office 159 (Normal) 49-Mam-549142:49 HgA1C , Office (20472) HgA1C , Office 8.1 % (Abnormal) Range: 4.6 - 7.1 79-Uqf-232013:03 VITAMIN B-12 (CYANOCOBALAMIN) Comments: PATIENT WAS FASTINGPERFORMED BY: [facility]6370 [facility] [id number] (14092) Vitamin B12 319 pg/mL (Normal) Range: 211-946 86-Ksj-422587:03 LIPID PANEL (44335) Comments: PATIENT WAS FASTINGPERFORMED BY: [facility] [id number] VLDL Cholesterol Jyoti VLDLCH mg/dL (Normal) Range: [...] Cholesterol, Total 192 mg/dL (Normal) Range: 100-199 30-Mjh-672171:03 Vitamin D Hydroxy (69930) Comments: PATIENT WAS FASTINGPERFORMED BY: SnapchatSaint James HospitalWmgmnb8390 [facility] [id number] Vitamin D, 25-Hydroxy 21.1 ng/mL (Abnormal) Range: 30.0-100.0 Comments: Vitamin D deficiency has been defined by the [place] [facility] and an Endocrine Society practice guideline as alevel of serum 25-OH vitamin D less than 20 ng/mL (1,2).The Endocrine Society went on to further define vitamin Dinsufficiency as a level between 21 and 29 ng/mL (2).1. IOM ([place] of Medicine). 2010. Dietary reference intakes for calcium and D. [place]: The National Academies Press.2. Bobo MF, Estrellita STOCKTON, Maddi CALIX, et al. Evaluation, treatment, and prevention of vitamin D deficiency: an Endocrine Society clinical practice guideline. JCEM. 2010; 96(7): 1911-30.; ADDENDA: non-emergent till apt next week 85-Dfl-154429:03 MICROALBUMIN: CREATININE RATIO Comments: PATIENT WAS FASTINGPERFORMED BY: Snapchat Nyjnwa9459 [facility] [id number] (25584) AND (76241) Microalb/Creat Ratio 26.1 {mg/g_creat} (Normal) Range: 0.0-30.0 Microalbumin, Urine 20.0 ug/mL (Normal) Creatinine, Urine 76.5 mg/dL (Normal) 84-Mmf-998283:03 CBC W/AUTO DIFF WBC Comments: PATIENT WAS FASTINGPERFORMED BY: SnapchatSaint James HospitalMwkcmv8153 [facility] [id number] Information: [id number] (83682) Immature Grans (Abs) 0.0 {x10E3/uL} (Normal) Range: [...] 3.77-5.28 WBC 8.1 {x10E3/uL} (Normal) Range: 3.4-10.8 59-Dyf-902873:03 METABOLIC PANEL, COMPREHENSIVE Comments: PATIENT WAS FASTINGPERFORMED BY: LabCoSaint James HospitalMxhjbv5999 [facility] [id number] (91248) ALT (SGPT) 7 [iU]/L (Normal) Range: 0-32 [...] (Abnormal) Range: 65-99 :53 Vitamin D Hydroxy (15214) Comments: PATIENT WAS FASTINGPERFORMED BY: [employer]70 Evrent [facility] Regional HospitalFlooredSelect Specialty Hospital - [facility] [id number] Vitamin D, 25-Hydroxy 25.5 ng/mL (Abnormal) Range: 30.0-100.0 Comments: Vitamin D deficiency has been defined by the [place] ofMedicine and an Endocrine Society practice guideline as alevel of serum 25-OH vitamin D less than 20 ng/mL (1,2).The Endocrine Society went on to further define vitamin Dinsufficiency as a level between 21 and 29 ng/mL (2).1. IOM ([place] of Medicine). 2010. Dietary reference intakes for calcium and D. [place]: The National Academies Press.2. Bobo MF, Estrellita NC, Maddi CALIX, et al. Evaluation, treatment, and prevention of vitamin D deficiency: an Endocrine Society clinical practice guideline. JCEM. 2010; 96(7):1911-30. :53 LIPID PANEL (83373) Comments: PATIENT WAS FASTINGPERFORMED BY: Inbilin6370 [facility] [id number] LDL/HDL Ratio 3.7 {ratio_units} (Abnormal) Range: 0.0-3.2 [...] PANEL, COMPREHENSIVE Comments: PATIENT WAS FASTINGPERFORMED BY: LabCoSaint James HospitalWedusz7551 [facility] [id number] (48453) ALT (SGPT) 5 [iU]/L (Normal) Range: 0-32 [...] mg/dL (Abnormal) Range: 65-99 :34 HGB A1C (03590) Comments: PATIENT WAS FASTINGPERFORMED BY: Inbilin6370 [facility] [place] [id number] Hemoglobin A1c 8.9 % (Abnormal) Range: 4.8-5.6 Comments: . Pre-diabetes: 5.7 - 6.4 Diabetes: >6.4 Glycemic control for adults with diabetes: <7.0 :11 VITAMIN B-12 (CYANOCOBALAMIN) Comments: B12lot:5200exp:06/26site:lt deltroute:EPIFANIOdose:chilo Camargo; PATIENT WAS FASTINGPERFORMED BY: Snapchat Xgvflt3543 [facility] [id number] (88593) Vitamin B12 301 pg/mL (Normal) Range: 211-946 :11 Vitamin D Hydroxy (97286) Comments: PATIENT WAS FASTINGPERFORMED BY: [facility] Cpiwhe9835 [facility] [id number] Vitamin D, 25-Hydroxy 20.3 ng/mL (Abnormal) Range: 30.0-100.0 Comments: Vitamin D deficiency has been defined by the [place] ofMedicine and an Endocrine Society practice guideline as alevel of serum 25-OH vitamin D less than 20 ng/mL (1,2).The Endocrine Society went on to further define vitamin Dinsufficiency as a level between 21 and 29 ng/mL (2).1. IOM ([place] of Medicine). 2010. Dietary reference intakes for calcium and D. [place]: The National Academies Press.2. Bobo MF, Estrellita NC, Maddi CALIX, et al. Evaluation, treatment, and prevention of vitamin D deficiency: an Endocrine Society clinical practice guideline. JCEM. 2010; 96(7):1911-30. :11 METABOLIC PANEL, Comments: PATIENT WAS FASTINGPERFORMED BY: BELKYS Snapchat Xjwfkz4610 [facility] [id number] Information: [id number] COMPREHENSIVE (68413) ALT (SGPT) 6 [iU]/L (Normal) Range: 0-32 [...] mg/dL (Abnormal) Range: 65-99 :11 LIPID PANEL (94367) Comments: PATIENT WAS FASTINGPERFORMED BY: Snapchat Agkvdf6721 [facility] [id number]; will review on 07/04 LDL/HDL Ratio 4.0 [...] mg/dL (Abnormal) Range: 100-199 :11 HGB A1C (17744) Comments: PATIENT WAS FASTINGPERFORMED BY: [facility] Shsgdi9329 [facility] [id number] Hemoglobin A1c 8.5 % (Abnormal) Range: 4.8-5.6 Comments: . Pre-diabetes: 5.7 - 6.4 Diabetes: >6.4 Glycemic control for adults with diabetes: <7.0 :16 Vitamin D Hydroxy (13030) Comments: PATIENT WAS FASTINGPERFORMED BY: [facility] Hbiorn6714 [facility] [id number] Vitamin D, 25-Hydroxy 21.3 ng/mL (Abnormal) Range: 30.0-100.0 Comments: Vitamin D deficiency has been defined by the [place] of[facility] and an Endocrine Society practice guideline as alevel of serum 25-OH vitamin D less than 20 ng/mL (1,2).The Endocrine Society went on to further define vitamin Dinsufficiency as a level between 21 and 29 ng/mL (2).1. IOM ([place] of Medicine). 2010. Dietary reference intakes for calcium and D. [place]: The National Academies Press.2. Bobo MF, Estrellita STOCKTON, Maddi CALIX, et al. Evaluation, treatment, and prevention of vitamin D deficiency: an Endocrine Society clinical practice guideline. JCEM. 2010; 96(7):1911-30. :16 VITAMIN B-12 (CYANOCOBALAMIN) Comments: PATIENT WAS FASTINGPERFORMED BY: BELKYS SnapchatUniversity of New Mexico HospitalsBostoi5723 [facility] [id number] (16276) Vitamin B12 283 pg/mL (Normal) Range: 211-946 :16 CBC W/AUTO DIFF WBC Comments: PATIENT WAS FASTINGPERFORMED BY: SnapchatUniversity of New Mexico HospitalsRekour0041 [facility] [id number] Information: [id number] (86603) Immature Grans (Abs) 0.0 {x10E3/uL} (Normal) Range: [...] {x10E3/uL} (Normal) Range: 3.4-10.8 :16 LIPID PANEL (03786) Comments: PATIENT WAS FASTINGPERFORMED BY: LabCoSaint James HospitalWyxwma1413 [facility] [id number] VLDL Cholesterol Jyoti VLDLCH mg/dL (Normal) Range: [...] Cholesterol, Total 168 mg/dL (Normal) Range: 100-199 61-Vva-682231:49 HGB A1C (23458) Comments: PATIENT NOT FASTINGPERFORMED BY: SnapchatSaint James HospitalIesavr6701 [facility] [id number] Information: [id number] Hemoglobin A1c 8.1 % (Abnormal) Range: 4.8-5.6 Comments: . Pre-diabetes: 5.7 - 6.4 Diabetes: >6.4 Glycemic control for adults with diabetes: <7.0 29-Quy-27125:30 VITAMIN B-12 (CYANOCOBALAMIN) Comments: PATIENT WAS FASTINGPERFORMED BY: SnapchatSaint James HospitalKypypi7951 [facility] [id number] (89307) Vitamin B12 325 pg/mL (Normal) Range: 211-946 33-Wtj-28138:30 CBC (AUTO) (22317) Comments: PATIENT WAS FASTINGPERFORMED BY: SnapchatSaint James HospitalDzlyap8623 [facility] [id number] Platelets 309 {x10E3/uL} (Normal) Range: 150-379 RDW 14.8 % (Normal) Range: 12.3-15.4 MCHC 31.1 g/dL (Abnormal) Range: 31.5-35.7 MCH 25.6 pg (Abnormal) Range: 26.6-33.0 MCV 82 fL (Normal) Range: 79-97 Hematocrit 39.2 % (Normal) Range: 34.0-46.6 Hemoglobin 12.2 g/dL (Normal) Range: 11.1-15.9 RBC 4.77 {x10E6/uL} (Normal) Range: 3.77-5.28 WBC 10.9 {x10E3/uL} (Abnormal) Range: 3.4-10.8 :30 Vitamin D Hydroxy (23569) Comments: PATIENT WAS FASTINGPERFORMED BY: Snapchat Fqjbfs8868 [facility] [id number] Vitamin D, 25-Hydroxy 19.9 ng/mL (Abnormal) Range: 30.0-100.0 Comments: Vitamin D deficiency has been defined by the [place] ofMedicine and an Endocrine Society practice guideline as alevel of serum 25-OH vitamin D less than 20 ng/mL (1,2).The Endocrine Society went on to further define vitamin Dinsufficiency as a level between 21 and 29 ng/mL (2).1. IOM ([place] of Medicine). 2010. Dietary reference intakes for calcium and D. [place]: The National Academies Press.2. Bobo MF, Estrellita NC, Maddi CALIX, et al. Evaluation, treatment, and prevention of vitamin D deficiency: an Endocrine Society clinical practice guideline. JCEM. 2010; 96(7): 1911-30.; ADDENDA: non-emergent till tomorrows apt :30 LIPID PANEL (35172) Comments: PATIENT WAS FASTINGPERFORMED BY: [employer]6370 [facility] [id number] VLDL Cholesterol Jyoti VLDLCH mg/dL (Normal) Range: [...] CREATININE RATIO Comments: PATIENT WAS FASTINGPERFORMED BY: SnapchatSaint James HospitalDslabv7094 [facility] [id number] (99136) AND (81496) Microalb/Creat Ratio 190.8 {mg/g_creat} (Abnormal) Range: 0.0-30.0 Microalbumin, Urine 66.6 ug/mL (Abnormal) Range: 0.0-17.0 Creatinine, Urine 34.9 mg/dL (Normal) Range: 15.0-278.0 :30 METABOLIC PANEL, Comments: PATIENT WAS FASTINGPERFORMED BY: [employer] [facility] [id number] Information: [id number] COMPREHENSIVE (71636) ALT (SGPT) 6 [iU]/L (Normal) Range: 0-32 [...] (Abnormal) Range: 65-99 :59 Vitamin D Hydroxy (66168) Comments: PATIENT NOT FASTINGPERFORMED BY: Imagineer SystemsVernon [place] [id number]; apt. -15 Vitamin D, 25-Hydroxy 21.4 ng/mL (Abnormal) Range: 30.0-100.0 Comments: Vitamin D deficiency has been defined by the [place] ofMedicine and an Endocrine Society practice guideline as alevel of serum 25-OH vitamin D less than 20 ng/mL (1,2).The Endocrine Society went on to further define vitamin Dinsufficiency as a level between 21 and 29 ng/mL (2).1. IOM ([place] of Medicine). 2010. Dietary reference intakes for calcium and D. [place]: The National Academies Press.2. Bobo MF, Estrellita NC, Maddi CALIX, et al. Evaluation, treatment, and prevention of vitamin D deficiency: an Endocrine Society clinical practice guideline. JCEM. 2010; 96(7):1911-30. :59 LIPID PANEL (07698) Comments: PATIENT NOT FASTINGPERFORMED BY: Lexy [facility] Nqwmym7364 [facility] [id number] VLDL Cholesterol Jyoti VLDLCH mg/dL (Normal) Range: [...] B-12 (CYANOCOBALAMIN) Comments: PATIENT NOT FASTINGPERFORMED BY: [facility] Oorutj5627 [facility] [id number] (94997) Vitamin B12 500 pg/mL (Normal) Range: 211-946 :59 CBC W/AUTO DIFF WBC Comments: PATIENT NOT FASTINGPERFORMED BY: Lexy [facility] Wiwzjy0312 [facility] [id number] Information: [id number] (06900) Immature Grans (Abs) 0.0 {x10E3/uL} (Normal) Range: [...] PANEL, COMPREHENSIVE Comments: PATIENT NOT FASTINGPERFORMED BY: LabCoSaint James HospitalJwotpv3144 [facility] [id number] (72441) ALT (SGPT) 6 [iU]/L (Normal) Range: 0-32 [...] Range: 65-99 :38 Blood Glucose , Office (55072) Blood Glucose , Office 198 (Normal) :38 HgA1C , Office (22994) HgA1C , Office 9.1 % (Abnormal) Range: 4.6 - 7.1 :40 Allergens, Zone 8 Comments: Test(s) 449851-A360-QzT Cockroach, Algerian; 607673-S252-AvF OuachitaLaura; 884762-K580-TcG Sweet Gumwere developed and had performance characteristicsdetermined by [employer]. These tests have not been c leared orapproved by the U.S. Food and Drug Administration. The FDAhas determined that such clearance or approval is notnecessary. These tests are used for clinical purposes.These should not be regarded as investigational or forresearch.Test performed at:[facility] [address] [place] [address] ; handled by jennifer VANG COMMENT Comment [...] NETTLE <0.10 kU/L (Normal) Comments: Performed at: [address] [id number] Director: Loco Ivey MD, Phone: [phone] SHEEP SORREL <0.10 kU/L (Normal) PIGWEED, ROUGH [...] kU/L (Normal) D PTERONYSSINUS <0.10 kU/L (Normal) :40 Immunoglobulin E Comments: Test performed at:[facility] Gefdzjmuka4058 [facility] [address]. [place], [place] [id number] IMMUNO E 53 {IU/mL} (Normal) Range: 0-100 Comments: Performed at: [address] [id number] Director: Christopher Sullivan PhD, Phone: [phone]; ADDENDA: handled by jennifer 87-Zal-503374:26 HgA1C , Office (11888) HgA1C , Office 9.6 % (Abnormal) Range: 4.6 - 7.1 8-Sco-600722:31 BNP,B-Type NATRIURETIC PEPTIDE Comments: Test performed at:[facility] Aowefwpvwc0773 [facility] [place] [address] B-TYPE ANDREW PEP 58.8 pg/mL (Normal) Range: 0-100 10-Zda-030992:04 IRON BINDING CAPACITY (TIBC) Comments: PERFORMED BY: [address] [id number] (55142) Iron Saturation 11 % (Abnormal) Range: 15-55 Iron, Serum 47 ug/dL (Normal) Range: 35-155 UIBC 362 ug/dL (Normal) Range: 150-375 Iron Bind.Cap.(TIBC) 409 ug/dL (Normal) Range: 250-450 58-Cki-304749:04 FERRITIN (82230) Comments: PERFORMED BY: [facility] [place] [address] [id number] Ferritin, Serum 32 ng/mL (Normal) Range: 15-150 23-Xxt-045683:04 VITAMIN B-12 (CYANOCOBALAMIN) Comments: PERFORMED BY: [facility] [place] [address] [id number] (55878) Vitamin B12 304 pg/mL (Normal) Range: 211-946 84-Iyt-458736:04 Vitamin D Hydroxy (54071) Comments: PERFORMED BY: Snap[employer] Wqcyhw2461 [facility] [id number] Vitamin D, 25-Hydroxy 17.5 ng/mL (Abnormal) Range: 30.0-100.0 Comments: Vitamin D deficiency has been defined by the [place] [facility] and an Endocrine Society practice guideline as alevel of serum 25-OH vitamin D less than 20 ng/mL (1,2).The Endocrine Society went on to further define vitamin Dinsufficiency as a level between 21 and 29 ng/mL (2).1. IOM ([place] of Medicine). 2010. Dietary reference intakes for calcium and D. [place]: The National Academies Press.2. Bobo MF, Estrellita STOCKTON, Maddi CALIX, et al. Evaluation, treatment, and prevention of vitamin D deficiency: an Endocrine Society clinical practice guideline. JCEM. 2010; 96(7):1911-30. 38-Eqb-193458:04 LIPID PANEL (98377) Comments: PERFORMED BY: Inbilin6370 [facility] [id number] VLDL Cholesterol Jyoti VLDLCH mg/dL (Normal) Range: [...] Cholesterol, Total 166 mg/dL (Normal) Range: 100-199 75-Idh-629610:04 CBC W/AUTO DIFF WBC (36671) Comments: PERFORMED BY: [employer] Vvtnsb7111 [facility] [id number] Immature Grans (Abs) 0.0 {x10E3/uL} (Normal) Range: [...] 3.77-5.28 WBC 7.3 {x10E3/uL} (Normal) Range: 3.4-10.8 93-Bab-821562:04 METABOLIC PANEL, COMPREHENSIVE Comments: PERFORMED BY: [facility]6370 [facility] [id number] (83468) ALT (SGPT) 5 [iU]/L (Normal) Range: 0-32 [...] Glucose, Serum 279 mg/dL (Abnormal) Range: 65-99 66-Lbh-761549:18 HgA1C , Office (95097) HgA1C , Office 8.3 % (Abnormal) Range: 4.6 - 7.1 44-Qpt-777335:12 Rapid Flu (19504 x 2) Influenza A Ag negative (Normal) 82-Eix-845357:43 BNTP (46731) Comments: PATIENT NOT FASTINGPERFORMED BY: LabCoSaint James HospitalMcqiuh0782 [facility] [id number] Information: [id number] B-Type Natriuretic Peptide 67.8 pg/mL (Normal) Range: 0.0-100.0 5-Tjo-251499:12 CBCD ALC 1.70 {X10_3/ul} (Normal) Range: 0.83-4.51 [...] A.D.A. criteria. :14 Blood Glucose , Office (07198) Blood Glucose , Office 112 (Normal) :14 HgA1C , Office (05308) HgA1C , Office 7.3 % (Abnormal) Range: 4.6 - 7.1 39-Tgm-040738:45 WESTON Negative (Normal) Comments: Performed at: CB - [facility] [address] [id number] Director: Nick Cali PhD, Phone: [phone] 20-Acw-859402:45 CBCD ALC 1.65 {X10_3/ul} (Normal) Range: 0.83-4.51 [...] - 59Strong positive >59Performed at: - [facility] [address] [id number] Director: Loco Ivey MD, Phone: [phone] 52-Vnr-033806:45 CMP GAP 4 (Abnormal) Range: 5-15 CO2 [...] 7-18 GLU 99 mg/dL (Normal) Range: 70-110 69-Klp-623040:45 CRP < 2.90 mg/L (Normal) Range: 0.0-3.0 [...] ng/mL (>250 nmol/L) :46 Vitamin D Hydroxy (91517) Comments: PATIENT WAS FASTINGPERFORMED BY: Snapchat Yvnool8787 [facility] [id number] Vitamin D, 25-Hydroxy 22.7 ng/mL (Abnormal) Range: 30.0-100.0 Comments: Vitamin D deficiency has been defined by the [place] ofMedicine and an Endocrine Society practice guideline as alevel of serum 25-OH vitamin D less than 20 ng/mL (1,2).The Endocrine Society went on to further define vitamin Dinsufficiency as a level between 21 and 29 ng/mL (2).1. IOM ([place] of Medicine). 2010. Dietary reference intakes for calcium and D. [place]: The National Academies Press.2. Bobo MF, Estrellita STOCKTON, Maddi CALIX, et al. Evaluation, treatment, and prevention of vitamin D deficiency: an Endocrine Society clinical practice guideline. JCEM. 2010; 96(7):1911-30. :46 MICROALBUMIN: CREATININE RATIO Comments: PATIENT WAS FASTINGPERFORMED BY: Snapchat Ysfpxi9557 [facility] [id number] (72587) AND (24144) Microalb/Creat Ratio 37.1 {mg/g_creat} (Abnormal) Range: 0.0-30.0 Microalbumin, Urine 29.9 ug/mL (Abnormal) Range: 0.0-17.0 Creatinine, Urine 80.5 mg/dL (Normal) Range: 15.0-278.0 :46 METABOLIC PANEL, COMPREHENSIVE Comments: PATIENT WAS FASTINGPERFORMED BY: Snapchat Euyokl5881 [facility] [id number] (28942) ALT (SGPT) 7 [iU]/L (Normal) Range: 0-32 [...] mg/dL (Abnormal) Range: 65-99 :46 LIPID PANEL (88308) Comments: PATIENT WAS FASTINGPERFORMED BY: [employer]6370 [facility] [id number] LDL/HDL Ratio 2.1 {ratio_units} (Normal) Range: 0.0-3.2 [...] Cholesterol, Total 177 mg/dL (Normal) Range: 100-199 :46 CBC, PLATELETS & AUT DIFF Comments: PATIENT WAS FASTINGPERFORMED BY: [employer]70 [facility] [id number] Information: [id number] (12901) Hematology Comments: Note: (Normal) Comments: Verified by [...] 3.77-5.28 WBC 10.8 {x10E3/uL} (Normal) Range: 3.4-10.8 33-Lgp-36263:46 VITAMIN B-12 (CYANOCOBALAMIN) Comments: PATIENT WAS FASTINGPERFORMED BY: LabCoSaint James HospitalCteccl2834 [facility] [id number] (64615) Vitamin B12 254 pg/mL (Normal) Range: 211-946 8-Alr-876694:10 HgA1C , Office (49785) HgA1C , Office 6.8 % (Normal) Range: 4.6 - 7.1 7-Cxx-821202:10 Blood Glucose , Office (02925) Blood Glucose , Office 146 (Normal) Comments: non-fasting :36 LIPID PANEL (05118) Comments: PATIENT WAS FASTINGPERFORMED BY: LabCoSaint James HospitalSxlrhj0735 [facility] [id number] VLDL Cholesterol Jyoti VLDLCH mg/dL (Normal) Range: [...] DIFF Comments: PATIENT WAS FASTINGPERFORMED BY: [facility] Epsbmn1173 [facility] [id number] Information: [id number] (07011) Immature Grans (Abs) 0.0 {x10E3/uL} (Normal) Range: [...] 3.77-5.28 WBC 8.3 {x10E3/uL} (Normal) Range: 3.4-10.8 17-Aug-20139:36 METABOLIC PANEL, COMPREHENSIVE Comments: PATIENT WAS FASTINGPERFORMED BY: LabCoSaint James HospitalNebusn5488 [facility] [id number] (87527) ALT (SGPT) 6 [iU]/L (Normal) Range: 0-32 [...] (Abnormal) Range: 65-99 :36 Vitamin D Hydroxy (38104) Comments: PATIENT WAS FASTINGPERFORMED BY: Snapchat Wjuaty9977 Ryan RoadDublin [place] [id number] Vitamin D, 25-Hydroxy 17.5 ng/mL (Abnormal) Range: 30.0-100.0 Comments: Vitamin D deficiency has been defined by the [place] of[facility] and an Endocrine Society practice guideline as alevel of serum 25-OH vitamin D less than 20 ng/mL (1,2).The Endocrine Society went on to further define vitamin Dinsufficiency as a level between 21 and 29 ng/mL (2).1. IOM ([place] of Medicine). 2010. Dietary reference intakes for calcium and D. [place]: The National Academies Press.2. Bobo MF, Estrellita STOCKTON, Maddi CALIX, et al. Evaluation, treatment, and prevention of vitamin D deficiency: an Endocrine Society clinical practice guideline. JCEM. 2010; 96(7):1911-30. :36 VITAMIN B-12 (CYANOCOBALAMIN) Comments: PATIENT WAS FASTINGPERFORMED BY: Snapchatrp Bvdjwo9857 Ryan RoadDublin [place] [id number] (22026) Vitamin B12 264 pg/mL (Normal) Range: 211-946 :36 IRON (28303) Comments: PATIENT WAS FASTINGPERFORMED BY: [facility] Ygvqfq0952 Ryan RoadDublin [place] [id number] Iron, Serum 52 ug/dL (Normal) Range: 35-155 81-Ekn-793243:54 HgA1C , Office (66121) HgA1C , Office 7.1 % (Normal) Range: 4.6 - 7.1 :09 VITAMIN B-12 (CYANOCOBALAMIN) Comments: PATIENT WAS FASTINGPERFORMED BY: [facility] Vhpaxi2951 [facility] [id number] (36698) Vitamin B12 704 pg/mL (Normal) Range: 211-946 :09 Vitamin D Hydroxy (66958) Comments: PATIENT WAS FASTINGPERFORMED BY: Wall[facility] HoldingSouthwest Regional Rehabilitation Center6370 [facility] [id number] Vitamin D, 25-Hydroxy 21.8 ng/mL (Abnormal) Range: 30.0-100.0 Comments: Vitamin D deficiency has been defined by the [place] ofMedicine and an Endocrine Society practice guideline as alevel of serum 25-OH vitamin D less than 20 ng/mL (1,2).The Endocrine Society went on to further define vitamin Dinsufficiency as a level between 21 and 29 ng/mL (2).1. IOM ([place] of Medicine). 2010. Dietary reference intakes for calcium and D. [place]: The National Academies Press.2. Bobo MF, Estrellita STOCKTON, Maddi CALIX, et al. Evaluation, treatment, and prevention of vitamin D deficiency: an Endocrine Society clinical practice guideline. JCEM. 2010; 96(7):1911-30. :09 MICROALBUMIN: CREATININE RATIO Comments: PATIENT WAS FASTINGPERFORMED BY: SnapchatSaint James HospitalQbtvqm7166 [facility] [id number] ([id number]) AND (14412) Microalb/Creat Ratio 24.2 {mg/g_creat} (Normal) Range: 0.0-30.0 Microalbumin, Urine 37.1 ug/mL (Abnormal) Range: 0.0-17.0 Creatinine, Urine 153.6 mg/dL (Normal) Range: 15.0-278.0 :09 METABOLIC PANEL, COMPREHENSIVE Comments: PATIENT WAS FASTINGPERFORMED BY: [facility] HoldingSouth[facility] Center6370 [facility] [id number] ([id number]) ALT (SGPT) 9 [iU]/L (Normal) Range: 0-32 [...] Glucose, Serum 150 mg/dL (Abnormal) Range: 65-99 40-Iof-50717:09 CBC WITH MANUAL DIFF Comments: PATIENT WAS FASTINGPERFORMED BY: LabCoSaint James HospitalRtavih5036 [facility] [id number] Information: [id number] (50694) Immature Grans (Abs) 0.0 {x10E3/uL} (Normal) Range: [...] {x10E3/uL} (Normal) Range: 3.4-10.8 :09 LIPID PANEL (98319) Comments: PATIENT WAS FASTINGPERFORMED BY: LabCoSaint James HospitalJnawwe3972 [facility] [id number] VLDL Cholesterol Jyoti VLDLCH mg/dL (Normal) Range: [...] (Normal) Range: 100-199 :23 HgA1C , Office (63711) HgA1C , Office 7.2 % (Abnormal) Range: 4.6 - 7.1 29-Nqp-241409:08 FOOT MIN 3 VIEWS Radiology Report See [...] Babcock M.D.November 02, 2012 at 3:41:31 PM [id number] Signed GP/GP If you are the referring physician and would like to consult with theradiologist who provided this interpretation, please contact Imani Hayes at [phone]. If this radiologist is unavailable, youwill be directed to another radiologist to assist. If you are a patient with a question regarding this report, pleasecontactyour referring lisa frygerri directly. Professional Interpretation Provided By: [employer], Phone , These documents contain legally protected [...] return or destructionofthese documents. Dictated on 11/02/12 3325 by Emma Babcock MD on 11/02/121542 by ITS IMPORTSign by John Babcock MD on 11/02/12 1544 Sign by: John Babcock MD 08-Qle-080969:33 MICROALBUMIN: CREATININE RATIO Comments: PATIENT WAS FASTINGPERFORMED BY: Snapchat Azkfje6067 [facility] [id number] ([id number]) AND (86368) Microalb/Creat Ratio 31.2 {mg/g_creat} (Abnormal) Range: 0.0-30.0 Microalbumin, Urine 44.7 ug/mL (Abnormal) Range: 0.0-17.0 Creatinine, Urine 143.3 mg/dL (Normal) Range: 15.0-278.0 62-Hmd-417082:33 CBC WITH MANUAL DIFF Comments: PATIENT WAS FASTINGPERFORMED BY: eyetok Fsliwj7431 [facility] [id number] Information: [id number] (44220) Immature Grans (Abs) 0.0 {x10E3/uL} (Normal) Range: [...] 3.77-5.28 WBC 6.9 {x10E3/uL} (Normal) Range: 3.4-10.8 15-Bgn-057200:33 METABOLIC PANEL, COMPREHENSIVE Comments: PATIENT WAS FASTINGPERFORMED BY: LabCoSaint James HospitalXjfeoa5496 [facility] [id number] (86597) ALT (SGPT) 10 [iU]/L (Normal) Range: 0-32 [...] Glucose, Serum 158 mg/dL (Abnormal) Range: 65-99 08-Vqg-262604:33 VITAMIN B-12 (CYANOCOBALAMIN) Comments: PATIENT WAS FASTINGPERFORMED BY: Walls HoldingCoSaint James HospitalIjpbiq6307 [facility] [id number] (93631) Vitamin B12 >1999 pg/mL (Abnormal) Range: 211-946 08-Neg-947330:33 IRON BINDING CAPACITY (TIBC) Comments: PATIENT WAS FASTINGPERFORMED BY: LabMedingo Medical SolutionsSaint James HospitalIsnvgq9034 [facility] [id number] (86653) Iron Saturation 16 % (Normal) Range: 15-55 Iron, Serum 59 ug/dL (Normal) Range: 35-155 UIBC 315 ug/dL (Normal) Range: 150-375 Iron Bind.Cap.(TIBC) 374 ug/dL (Normal) Range: 250-450 44-Abk-243175:33 FERRITIN (67207) Comments: PATIENT WAS FASTINGPERFORMED BY: LabCoSaint James HospitalMsslfz8365 [facility] [id number] Ferritin, Serum 29 ng/mL (Normal) Range: 15-150 25-Cqk-450638:33 HEPATIC FUNCTION PANEL Comments: PATIENT WAS FASTINGPERFORMED BY: SnapchatSaint James HospitalLeqlcu9073 [facility] [id number] ([id number]) Bilirubin, Direct 0.12 mg/dL (Normal) Range: 0.00-0.40 13-Jqf-110929:33 LIPID PANEL (19036) Comments: PATIENT WAS FASTINGPERFORMED BY: LabCo Rzijrw6386 [facility] [id number] VLDL Cholesterol Jyoti VLDLCH mg/dL (Normal) Range: [...] Cholesterol, Total 174 mg/dL (Normal) Range: 100-199 12-Nys-653248:33 Vitamin D Hydroxy (10461) Comments: PATIENT WAS FASTINGPERFORMED BY: LabCoSaint James HospitalMvlvic4683 [place] [id number] Vitamin D, 25-Hydroxy 21.3 ng/mL (Abnormal) Range: 30.0-100.0 Comments: Vitamin D deficiency has been defined by the [place] ofMedicine and an Endocrine Society practice guideline as alevel of serum 25-OH vitamin D less than 20 ng/mL (1,2).The Endocrine Society went on to further define vitamin Dinsufficiency as a level between 21 and 29 ng/mL (2).1. IOM ([place] of Medicine). 2010. Dietary reference intakes for calcium and D. [place]: The National AcademamSTATZ Press.2. Bobo MF, Estrellita STOCKTON, Maddi CALIX, et al. Evaluation, treatment, and prevention of vitamin D deficiency: an Endocrine Society clinical practice guideline. JCEM. 2010; 96(7):1911-30. 77-Xdg-861327:22 HgA1C , Office (29686) HgA1C , Office 6.8 % (Normal) Range: [...] Babcock M.D.August 18, 2012 at 3:19:26 PM [id number] Signed GP/GP If you are the referring physician and would like to consult with theradiologist who provided this interpretation, please contact Imani Hayes at [phone]. If this radiologist is unavailable, youwill be directed to another radiologist to assist. If you are a patient with a question regarding this report, pleasecontactyour referring physician directly. Professional Interpretation Provided By: [employer], Phone , These documents contain legally protected [...] Dictated on 08/18/12 1519 by Wild Babcock MDranscribed on 08/18/12 1521 by ITS IMPORTSign by John Babcock MD on 08/18/12 1522 Sign by: John Babcock MD 9-Izp-062559:40 BILAT SCRN DIGITAL & CAD Radiology Report [...] a clinically suspiciousabnormality. Signed:John Babcock M.D.August 18 at 1:37:33 PM [id number] Signed GP/GP If you are the referring physician and would like to consult with theradiologist who provided this interpretation, please contact Sunil louis M.D. at [phone]. If this radiologist is unavailable, youwill be directed to another radiologist to assist. If you are a patient with a question regarding this report, pleasecontactyour referr ing physician directly. Professional Interpretation Provided By: [employer], Phone , These documents contain legally protected [...] 08/18/12 1400 Sign by: John Babcock MD 7-Sgh-898560:36 VERT FX ASSESS/LAT BONE DEN(H) Radiology Report [...] Babcock M.D.August 20, 2012 at 2:14:56 PM [id number] Signed GP/GP If you are the referring physician and would like to consult with theradiolo [facility] who provided this interpretation, please contact Imani Hayes at [phone]. If this radiologist is unavailable, youwill be directed to another radiologist to assist. If you are a clarice ent with a question regarding this report, pleasecontactyour referring physician directly. Professional Interpretation Provided By: [employer], Phone , These documents con tain legally [...] or destruc tionofthese documents. Dictated on 08/20/12 141 by Shayna ROSAS,Rosaliaranscribed on 08/20/121415 by ITS IMPORTSign by John Babcock MD on 08/20/121416 Sign by: John Babcock MD 56-Hzd-80631:10 LIPID PANEL (21697) Comments: PATIENT WAS FASTINGPERFORMED BY: [facility] [facility] [id number] VLDL Cholesterol Jyoti VLDLCH mg/dL (Normal) Range: [...] Cholesterol, Total 183 mg/dL (Normal) Range: 100-199 84-Fcx-55292:10 METABOLIC PANEL, COMPREHENSIVE Comments: PATIENT WAS FASTINGPERFORMED BY: New.net6370 [facility] [id number] (47892) ALT (SGPT) 5 [iU]/L (Normal) Range: 0-32 [...] Glucose, Serum 133 mg/dL (Abnormal) Range: 65-99 :10 IRON BINDING CAPACITY (TIBC) Comments: PATIENT WAS FASTINGPERFORMED BY: New.net6370 [facility] [id number] (95797) Iron Saturation 15 % (Normal) Range: 15-55 Iron, Serum 53 ug/dL (Normal) Range: 35-155 UIBC 308 ug/dL (Normal) Range: 150-375 Iron Bind.Cap.(TIBC) 361 ug/dL (Normal) Range: 250-450 :10 FERRITIN (82323) Comments: PATIENT WAS FASTINGPERFORMED BY: [facility]At[facility] [id number] Ferritin, Serum 25 ng/mL (Normal) Range: 15-150 04-Pjv-21534:10 VITAMIN B-12 (CYANOCOBALAMIN) Comments: PATIENT WAS FASTINGPERFORMED BY: BELKYS LabCoSaint James HospitalOusvjk4677 [facility] [id number] (87633) Vitamin B12 258 pg/mL (Normal) Range: 211-946 45-Qia-59736:10 CBC WITH MANUAL DIFF Comments: PATIENT WAS FASTINGPERFORMED BY: EBLKYS [facility] Yorzhf2927 [facility] [id number] Information: [id number] AND DRAW FEE [id number] (36993) Immature Grans (Abs) 0.0 {x10E3/uL} (Normal) Range: [...] (Normal) Range: 4.0-10.5 :10 Vitamin D Hydroxy (12789) Comments: PATIENT WAS FASTINGPERFORMED BY: Snapchat Jllmom3058 [facility]in [place] [id number] Vitamin D, 25-Hydroxy 20.4 ng/mL (Abnormal) Range: 30.0-100.0 Comments: Vitamin D deficiency has been defined by the [place] of[place]icine and an Endocrine Society practice guideline as alevel of serum 25-OH vitamin D less than 20 ng/mL (1,2).The Endocrine Society went on to further define vitamin Dinsufficiency as a level between 21 and 29 ng/mL (2).1. IOM ([place] of Medicine). 2010. Dietary reference intakes for calcium and D. [place]: The National Academies Press.2. Bobo MF, Estrellita STOCKTON, Maddi CALIX, et al. Evaluation, treatment, and prevention of vitamin D deficiency: an Endocrine Society clinical practice guideline. JCEM. 2010; 96(7):1911-30. 0-Ume-451708:08 IRON (63001) Comments: PATIENT WAS FASTINGPERFORMED BY: Snapchat Tpgrjs5863 [facility] [id number] Iron, Serum 58 ug/dL (Normal) Range: 35-155 5-Tjq-814893:08 FERRITIN (04475) Comments: PATIENT WAS FASTINGPERFORMED BY: Snapchat Drvkjz3578 [facility] [place] [id number] Ferritin, Serum 25 ng/mL (Normal) Range: 13-150 4-Qbe-598794:08 VITAMIN B-12 (CYANOCOBALAMIN) Comments: PATIENT WAS FASTINGPERFORMED BY: Snapchat Cwusay2942 [facility] [place] [id number] (74991) Vitamin B12 390 pg/mL (Normal) Range: 211-946 8-Bdx-247172:08 Vitamin D Hydroxy (21959) Comments: PATIENT WAS FASTINGPERFORMED BY: LabSouthwest [facility] Center6370 [facility] [id number] Vitamin D, 25-Hydroxy 25.3 ng/mL (Abnormal) Range: 30.0-100.0 Comments: Vitamin D deficiency has been defined by the [place] of[place]icine and an Endocrine Society practice guideline as alevel of serum 25-OH vitamin D less than 20 ng/mL (1,2).The Endocrine Society went on to further define vitamin Dinsufficiency as a level between 21 and 29 ng/mL (2).1. IOM ([place] of [place]). 2010. Dietary reference intakes for calcium and D. [place]: The National Academies Press.2. Bobo MF, Estrellita STOCKTON, Maddi CALIX, et al. Evaluation, treatment, and prevention of vitamin D deficiency: an Endocrine Society clinical practice guideline. JCEM. 2010; 96(7):1911-30. 9-Brc-137381:08 METABOLIC PANEL, COMPREHENSIVE Comments: PATIENT WAS FASTINGPERFORMED BY: BELKYS LabCoSaint James HospitalEkhpfz2347 [facility] [id number] (67245) ALT (SGPT) 6 [iU]/L (Normal) Range: 0-32 [...] Glucose, Serum 124 mg/dL (Abnormal) Range: 65-99 9-Tdp-856816:08 CBC WITH MANUAL DIFF Comments: PATIENT WAS FASTINGPERFORMED BY: LabSouthwest [facility] Rehabilitation Center6370 [facility] [id number] Information: [id number] (30181) Immature Grans (Abs) 0.0 {x10E3/uL} (Normal) Range: [...] 3.77-5.28 WBC 8.2 {x10E3/uL} (Normal) Range: 4.0-10.5 9-Ivz-421448:08 LIPID PANEL (22845) Comments: PATIENT WAS FASTINGPERFORMED BY: [facility] Jijjcs2278 [facility] [id number] VLDL Cholesterol Jyoti VLDLCH mg/dL (Normal) Range: [...] (Normal) Range: 100-199 :56 HgA1C , Office (84062) HgA1C , Office 7.4 % (Abnormal) Range: 4.6 - 7.1 :56 Blood Glucose , Office (19194) Blood Glucose , Office 142 (Normal) 11-Jqu-342384:40 CBCMD RBCM NORM C+C {NORMAL} (Normal) EOS [...] 4.2-5.4 WBC 11.2 K/mm3 (Abnormal) Range: 4.4-11.0 16-Qog-189070:40 CMP GAP 7 (Normal) Range: 5-15 CL [...] mg/dL suggests DIABETES MELLITUS per A.D.A. criteria. 36-Tck-42061:04 CHEST WITH CONTRAST Radiology Report See Note [...] coronal and sagittal images were reformatted. COM[facility]: [facility] dated February 15ndMa2009. FINDINGS: Multiple subcentimeter nodules are once again [...] Babcock M.D.November 07, 2011 at 1:33:21 PM [id number] Signed GP/GP If you ar e the referring physician and would like to consult with theradiologist who provided this interpretation, please contact Imani Hayes at [phone]. If this radiologist is unavailable, youw ill [...] 11/07/11 1340 Sign by: John Babcock MD 58-Nzj-411353:41 Pathology Report Comments: PERFORMED BY: [facility] Otaf28339 [facility] [id number] BY: LX [facility] Uhgmhyo92360 [facility] [id number] Information: [id number] See MATER Comments: Material submitted: .SHAVE BIOPSY LEFT UPPER THIGH NEAR GROINClinical history: .POLYPOID LESION Note (Normal) Diagnosis:SHAVE BIOPSY LEFT UPPER THIGH NEAR GROIN:DERMATOLIPOMA OF THE SKIN..GXA/11/03/2011 Electronically signed: .Ubaldo Duran MD, PathologistGross description: .RECEIVED IS A CONTAINER LABELE D FRITZ,COMFORT AND DESIGNATEDLEFT UPPER THIGH NEAR GROIN. IN FORMALIN IS AN OVOID, YELLOW/PAYTON TISSUEMEASURING 1.8 X 1.3 X 0.9 CM. THE 0.4 CM RESECTION MARGIN IS INKEDGREEN. THE SPECIMEN IS BISECTED AND BOTH HALVES ARE SUBMITTEDIN TWO CASSETTES, A1 AND A2.COR/[facility] S[facility]THER[facility] NEW MEXICOCPT .111900 78-Xiy-495697:06 CBC WITH MANUAL DIFF Comments: PATIENT NOT FASTINGPERFORMED BY: BELKYS [facility] Swmjiq2721 [facility] [id number] Information: [id number] (42152) Immature Grans (Abs) 0.0 {x10E3/uL} (Normal) Range: [...] 3.77-5.28 WBC 7.9 {x10E3/uL} (Normal) Range: 4.0-10.5 77-Mog-777686:06 LDH (LD) (LACTATE DEHYDROGENASE) Comments: PATIENT NOT FASTINGPERFORMED BY: eyetokUniversity of New Mexico HospitalsNzjyrm7033 [facility] [id number] (15947) LDH 198 [iU]/L (Normal) Range: 0-214 27-Cwt-618368:06 IRON BINDING CAPACITY (TIBC) Comments: PATIENT NOT FASTINGPERFORMED BY: eyetok [employer] [facility] [id number] (35385) Iron Saturation 11 % (Abnormal) Range: 15-55 Iron, Serum 46 ug/dL (Normal) Range: 35-155 UIBC 389 ug/dL (Abnormal) Range: 150-375 Iron Bind.Cap.(TIBC) 435 ug/dL (Normal) Range: 250-450 63-Qlx-317889:06 FERRITIN (26344) Comments: PATIENT NOT FASTINGPERFORMED BY: [facility]6370 [facility] [id number] Ferritin, Serum 12 ng/mL (Abnormal) Range: 13-150 1-Izq-188280:03 HgA1C , Office (33956) HgA1C , Office 7.1 % (Normal) Range: 4.6 - 7.1 :34 CBC WITH MANUAL DIFF (99585) Comments: PATIENT WAS FASTINGPERFORMED BY: [facility]6370 [facility] [id number] Immature Grans (Abs) 0.0 {x10E3/uL} (Normal) Range: [...] 3.77-5.28 WBC 8.3 {x10E3/uL} (Normal) Range: 3.4-10.8 4-Ptg-762136:11 FECAL OCCULT- Tubes sent home (52642) FECAL OCCULT HGB ASSAY, QUAL, 1-3 SIMULTANEOU positive (Normal) :30 HgA1C , Office (80251) HgA1C , Office 7.3 % (Abnormal) Range: [...] mg/dL suggests DIABETES MELLITUS per A.D.A. criteria. 01-Vad-150545:09 MIACRE tMICROCREAT 70.2 {mg/g_CRE} (Abnormal) MIALB 76.8 mg/L (Normal) CREU 109.3 mg/dL (Normal) 52-Wge-729599:09 VITD 23.9 ng/mL (Abnormal) Comments: appt 05-14-11 Range: 30.0-100.0 Comments: Vitamin D deficiency has been defined by the [place] ofMedicine and an Endocrine Society practice guideline as alevel of serum 25-OH vitamin D less than 20 ng/mL (1,2).The Endocrine Society went on to further define vitamin Dinsufficiency as a level between 21 and 29 ng/mL (2).1. IOM ([place] of Medicine). 2010. Dietary reference intakes for calcium and D. [place]: The National Academies Press.2. Bobo MF, Estrellita [place], Maddi CALIX, et al. Evaluation, treatment, and prevention of vitamin D deficiency: an Endocrine Society clinical practice guideline. JCEM. 2010; 96(7): 1911-30.Performed at: [facility] [id number] Director: Charisma Hamilton MD, Phone: [phone] 5-Gkh-477989:21 CHEST WITHOUT CONTRAST Radiology Report See Note [...] regarding this report, please jyoti edison felipe 93I2tnaswdi line @ Dictated on 02/15/111125 by Boone Alacron DOribed on 02/15/111732 by ITS IMPORTSign by Emery Alarcon DO on 02/15/111733 Sign by: Emery Alarcon DO 1-Fij-331244:30 HgA1C , Office (69826) HgA1C , Office 7.4 % (Abnormal) Range: 4.6 - 7.1 :30 Blood Glucose , Office (55884) Blood Glucose , Office 153 (Normal) :07 CHEST, PA AND LATERAL Radiology Report See [...] ANNAMARIE WOODWARD MD :01 HgA1C , Office (43005) HgA1C , Office 7.9 % (Abnormal) Range: 4.6 - 7.1 71-Xvk-359408:01 Blood Glucose , Office (05542) Blood Glucose , Office 133 (Normal) :52 [...] CREAT 107.1 mg/dL (Normal) :52 VIT D,25 20598 19.0 ng/mL (Abnormal) Range: 32.0-100.0 Comments: Recent studies consider the lower limit of 32.0 ng/mL to helena threshold for optimal health.Sunday BETTENCOURT. J Nutr. 2004;135(2):317-22.Performed at: [facility] [place] [address]Lab Director: Charisma Hamilton MD, Phone: [phone] :[phone] VITAMIN B12 447 pg/mL (Normal) Range: 254-1320 Comments: There is a low frequency possibility that high titers ofintrinsic blocking antibodies may not be completely inactivated during the reaction pretreatment stepof this testing method. If test results are i n conflictwith the clinical diagnosis, patient should be testedfor the presence of intrinsic factor blocking antibodies. 53-Sif-744004:02 BILAT SCRN DIGITAL & CAD Radiology Report [...] on 04/05/10 0305 Sign by: KEYA TREJO 74-Obl-908191:02 DEXA BONE DENSITY STUDY (HP) Radiology Report See Note (Normal) Comments: CLINICAL:Female, 69 years old. The patient is postmenopausal. EXAMINATION:DUAL ENERGY X-RAY ABSORPTIOMETRY / DEXA. TECHNIQUE:Bone Mineral Density (BMD) measurements of lumbar spine and bila teralhipswer e obtained using a [employer] scanner.. COMPARISON:Comparison is made with prior examination [...] [email or web address] Dictated on 04/04/10 1014 by Rosalia Babocckranscribed on 04/04/10 1137 by ITS IMPORTSign by John Babcock on 04/04/10 1138 Sign by: John Babcock :28 HgA1C , Office (99409) HgA1C , Office 8.2 % (Abnormal) Range: 4.6 - 7.1 :28 Blood Glucose , Office (63794) Blood Glucose , Office 205 (Normal) :27 [...] CHOL 169 mg/dL (Normal) Comments: <200 mg/dL Xnlixsqlm971-041 mg/dL Borderline>240 mg/dL High Risk HDL 24 [...] VITAMIN B12 338 pg/mL (Normal) Range: 254-1320 27 Comments: There is a low frequency possibility that high titers ofintrinsic blocking antibodies may not be completelyinactivated during the reaction pretreatment stepof this testing method. If test results are in conflictwith the clinical diagnosis, patient should be testedfor the presence of intrinsic factor blocking antibodies. 5-Jpk-465959:47 CHEST WITHOUT CONTRAST Radiology Report See Note (Normal) Comments: Exam Number: [id number] CT SCAN OF THE THORAX Multiple axial [...] unchanged as well. Reported By: JOHN BABCOCK 15-Jos-998645:27 VITAMIN B-12 (CYANOCOBALAMIN) Comments: PATIENT NOT FASTINGPERFORMED BY: New.net6370 [facility] [id number] (91078) Vitamin B12 338 pg/mL (Normal) Range: 211-946 Comments: Please note reference interval change 38-Eky-469033:27 Vitamin D Hydroxy (24705) Comments: PATIENT NOT FASTINGPERFORMED BY: New.net6370 [facility] [id number] Vitamin D, 25-Hydroxy 17.2 ng/mL (Abnormal) Range: 32.0-100.0 Comments: Recent studies consider the lower limit of 32.0 ng/mL to be athreshold for optimal health.Sunday BETTENCOURT. J Nutr. 2004;135(2):317-22. :27 CBC WITH MANUAL DIFF Comments: PATIENT NOT FASTINGPERFORMED BY: LabCoSaint James HospitalRiarlj7437 [facility] [id number] Information: [id number] (35944) Baso (Absolute) 0.0 {x10E3/uL} (Normal) Range: 0.0-0.2 [...] 3.80-5.10 WBC 7.3 {x10E3/uL} (Normal) Range: 4.0-10.5 43-Rto-281728:27 METABOLIC PANEL, COMPREHENSIVE Comments: PATIENT NOT FASTINGPERFORMED BY: LabCoSaint James HospitalGavwkd4215 [facility] [id number] (71705) ALT (SGPT) 7 [iU]/L (Normal) Range: 0-40 [...] Range: 65-99 :38 Blood Glucose , Office (70786) Blood Glucose , Office 133 (Normal) :57 [...] CHOL 186 mg/dL (Normal) Comments: <200 mg/dL Wqrcnudmh801-179 mg/dL Borderline>240 mg/dL High Risk 55-Mmh-08280:57 LIVER ALT 9 U/L (Abnormal) Range: 12-78 D BILI 0.10 mg/dL (Normal) Range: 0.00-0.30 T BILI 0.20 mg/dL (Normal) Range: 0.00-1.00 ALB 3.7 g/dL (Normal) Range: 3.4-5.0 ALK P 51 U/L (Normal) Range: 50-136 AST 6 U/L (Abnormal) Range: 15-37 T PROT 7.3 g/dL (Normal) Range: 6.4-8.2 82-Yrd-698183:17 KNEE,4 OR MORE VIEWS (MT) Radiology Report See Note (Normal) Comments: Exam Number: [id number] CLINICAL:Medial pain X-RAY EXAMINATION RIGHT KNEE TECHNIQUE: [...] Report See Note (Normal) Comments: Exam Number: [id number] NONCONTRAST CHEST CT Comparison is made with [...] difficile Toxins Negative (Normal) Comments: PERFORMED BY: Snapchat [employer] [facility] [id number] :51 A+B, EIA :51 Ova + Parasite Exam Comments: PERFORMED BY: [facility]trees [facility] [id number] Ova + Parasite Exam Final report (Normal) Comments: These results were obtained using wet preparation(s) and trichromestained smear. This test does not include testing for Cryptosporidiumparvum, Cyclospora, or Microsporidia. Result 1 NOCP (Normal) Comments: No ova, cysts, or parasites seen. :51 Stool Culture Comments: Clinical Information: SRC:ST PERFORMED BY: Snapchat Mnthrv6557 [facility] [id number] Campylobacter Culture Final report (Normal) E coli Shiga Toxin EIA Negative (Normal) Result 1 NCI (Normal) Comments: No Campylobacter species isolated. Result 1 NSS (Normal) Comments: No Salmonella or Shigella recovered. Salmonella/Shigella Screen Final report (Normal) :51 White Blood Cells (WBC), Comments: PERFORMED BY: [facility]Saint [facility] [id number] Stool Result 1 NWBC (Normal) Comments: No white blood cells seen. White Blood Cells (WBC), Final report (Normal) Comments: Reference Range: None Seen Stool :52 CBC With Differential/Platelet Comments: PATIENT WAS FASTINGPERFORMED BY: [facility]Saint [facility] Xzncvn9597 [facility] [id number] Baso (Absolute) 0.0 {x10E3/uL} (Normal) Range: 0.0-0.2 [...] 11.7-15.0 WBC 5.2 {x10E3/uL} (Normal) Range: 4.0-10.5 69-Llk-462470:52 Comp. Metabolic Panel (14) Comments: PATIENT WAS FASTINGPERFORMED BY: [facility]6[address] [facility] [id number] A/G Ratio 1.6 (Normal) Range: 1.1-2.5 Albumin, [...] Glucose, Serum 145 mg/dL (Abnormal) Range: 65-99 29-Wmj-464165:52 Lipid Panel With LDL/HDL Comments: PATIENT WAS FASTINGPERFORMED BY: [facility] [id number] Ratio Cholesterol, Total 135 mg/dL (Normal) Range: [...] pg/mL (Normal) Comments: PATIENT WAS FASTINGPERFORMED BY: [employer]6370 [facility] [id number] 0:52 Range: 211-911 38-Rkb-62606 Vitamin D, 25-Hydroxy 13.6 ng/mL Comments: PATIENT WAS FASTINGPERFORMED BY: [facility]6[address] [facility] [id number] 0:52 (Abnormal) Range: 32.0-100.0 Comments: Recent studies consider the lower limit of 32.0 ng/mL to be athreshold for optimal health.Sunday BETTENCOURT. J Nutr. 2004;135(2):317-22. :32 HgA1C , Office (24409) HgA1C , Office 6.9 % (Normal) Range: 4.6 - 7.1 :32 Blood Glucose , Office (96615) Blood Glucose , Office 179 (Normal) 05-Oyu-539063:25 ABDOMEN LIMITED US () Radiology Report See Note (Normal) Comments: Exam Number: [id number] CLINICAL:Abdominal pain. LIMITED ABDOMINAL ULTRASOUND COMPARISON:None. FINDINGS: [...] of cholecystitis. Reported By: HALIMA TURNER M.D. 4-Qgc-734073:35 Urinalysis, Office (53941) UA - BILIRUBIN Moderate (Normal) UA - BLOOD Negative (Normal) UA - GLUCOSE Negative (Normal) UA - KETONES Small mg/dL (Normal) UA - LEUKOCYTE ESTERASE Negative (Normal) UA - NITRITE Negative (Normal) UA - PH 5.0 (Normal) UA - PROTEIN 30 mg/dL (Normal) UA - SPECIFIC GRAVITY 1.025 (Normal) URINE UROBILINGN JAMIL TIMED 2 mg/dL (Normal) :00 Comp. Metabolic Panel (14) Comments: PATIENT NOT FASTINGPERFORMED BY: BELK[facility] [employer]6[address] [facility] [id number] A/G Ratio 1.3 (Normal) Range: 1.1-2.5 Albumin, [...] Panel (7) Comments: PATIENT NOT FASTINGPERFORMED BY: BELKYS [facility]qfjw[facility]1184 [facility] [id number] Bilirubin, Direct 0.17 mg/dL (Normal) Range: 0.00-0.40 [...] g/dL (Normal) Range: 6.4-8.2 :27 VIT D,25 16419 16.4 ng/mL (Abnormal) Comments: ORDERED LIPID,LIVER ALSO Range: 32.0-100.0 Comments: Recent studies consider the lower limit of 32.0 ng/mL to helena threshold for optimal health.Sunday BETTENCOURT. J Nutr. 2004;135(2):317-22.Performed At: [facility] [place] [address] [id number] :27 VITAMIN B12 430 pg/mL (Normal) Comments: ORDERED LIPID,LIVER ALSO Range: 254-1320 10-Izw-366661:01 BRAIN/HEAD W/WO CONTRAST Radiology Report See Note (Normal) Comments: Exam Number: [id number] CT OF THE HEAD WITH AND WITHOUT CONTRAST [id number]-[id number] woman who has had vague symptoms of [...] 02, 2008. Reported By: THANH ANNE M.D. 84-Cgc-71933:51 CBCD,SMEAR DIFF CELLS COUNTED 100 (Normal) EOS [...] mg/dL (Normal) Range: 0.00-0.30 :51 VIT D,25 59326 6.3 ng/mL (Abnormal) Range: 32.0-100.0 Comments: Recent studies consider the lower limit of 32.0 ng/mL to helena threshold for optimal health.Sunday BETTENCOURT. J Nutr. 2004;135(2):317-22.Performed At: [facility] [place], [place] [id number] :51 VITAMIN B12 301 pg/mL (Normal) Range: 211-911 :43 CHEST WITHOUT CONTRAST Radiology Report See Note (Normal) Comments: Exam Number: [id number] CLINICAL: Nodules CT CHEST WITHOUT CONTRAST COMPARISON:April [...] cardiopulmonary disease Reported By: RIO KAY M.D. 90-Khe-508677:13 HgA1C , Office (63537) HgA1C , Office 7.5 % (Abnormal) Range: 4.6 - 7.1 58-Fzx-310948:13 Blood Glucose , Office (57334) Blood Glucose , Office 203 (Normal) Antiparietal Cell 2.2 {Units} Comments: PERFORMED BY: GENEVIEVE [facility] [facility] [id number] 0:04 Antibody (Normal) Range: 0.0-20.0 Comments: Negative 0.0 - 20.0 Equivocal 20.1 - 24.9 Positive >24.9 . Parietal Cell Antibodies are found in 90% of patients with pernicious anemia and 30% of first degree relatives with pernicious anemia. 08-Nsu-069171:04 CBC With Differential/Platelet Comments: PERFORMED BY: [facility] [id number] Baso (Absolute) 0.0 {x10E3/uL} Range: 0.0-0.2 (Normal) [...] Factor Abs, Negative (Normal) Comments: PERFORMED BY: [facility]3]Aaovjaqift5629 [facility] [id number] 0:04 Serum Vitamin B12 472 pg/mL (Normal) Comments: PERFORMED BY: [facility]3]Mvfeeoutxs7428 [facility] [id number] 0:04 Range: 211-911 :32 Fecal Occult Blood , Office (10620) Fecal Occult Blood Negative (Normal) , Office Ferritin, Serum 21 ng/mL (Normal) Comments: PATIENT NOT FASTINGPERFORMED BY: [employer] Syebjk79[address] Ryan RoadDublin [place] [id number] :21 Range: 10-291 Folate (Folic >24.0 ng/mL (Normal) Comments: PATIENT NOT FASTINGPERFORMED BY: [employer] Nttsdu[address] Skycast SolutionsDublin [place] [id number] :21 Acid), Serum Comments: Indeterminate: 3.4 - 5.4 Deficient: <3.4 :21 Iron and TIBC Comments: PATIENT NOT FASTINGPERFORMED BY: [employer] Eacbco[address] Skycast SolutionsDublin [place] [id number] Iron Bind.Cap.(TIBC) 377 ug/dL (Normal) Range: 250-450 Iron Saturation 13 % (Abnormal) Range: 15-55 Iron, Serum 49 ug/dL (Normal) Range: 35-155 UIBC 328 ug/dL (Normal) Range: 150-375 LDH 145 [iU]/L (Normal) Comments: PATIENT NOT FASTINGPERFORMED BY: [employer] Mwlpbr4857 Ryan RoadDublin [place] [id number] :21 Range: 100-250 Reticulocyte Count 2.1 % (Normal) Comments: PATIENT NOT FASTINGPERFORMED BY: [facility] Lzanft36[address] RoadDublin [place] [id number] :21 Range: 0.5-3.0 Vitamin B12 182 pg/mL Comments: PATIENT NOT FASTINGPERFORMED BY: [facility] Ovqdaq[address] Sky[address] SolutionsDublin [place] [id number] :21 (Abnormal) Range: 211-911 :33 HgA1C , Office (95370) Comments: done>Wf. HgA1C , Office 6.8 % (Normal) Range: 4.6 - 7.1 :33 Blood Glucose , Office (17152) Comments: done>Wf. Blood Glucose , Office 150 [...] mg/dL VLDL 54 mg/dL (Abnormal) Range: 5-40 24-Dnk-665484:06 LIVER Comments: SEND A COPY OF THE LIPID AND LIVER RESULTSONLY. JLG ALB 3.6 g/dL (Normal) Range: 3.4-5.0 ALK P 47 U/L (Abnormal) Range: 50-136 ALT 25 U/L (Abnormal) Range: 30-65 AST 14 U/L (Abnormal) Range: 15-37 D BILI 0.06 mg/dL (Normal) Range: 0.00-0.30 T BILI 0.31 mg/dL (Normal) Range: 0.00-1.00 T PROT 6.7 g/dL (Normal) Range: 6.4-8.2 64-Jvf-791704:27 BILAT SCRN DIGITAL & CAD Radiology Report See Note (Normal) Comments: Exam Number: [id number] MAMMOGRAM, BILATERAL SCREENING DIGITAL AND CAD HISTORYRoutine [...] kailash werealso examined with computer-aided detection software ([employer], [employer] Reported By: KEYA TREJO M.D. 55-Att-974896:27 DEXA BONE DENSITY STUDY (HP) Radiology Report See Note (Normal) Comments: Exam Number: [id number] BONE DENSITOMETRY HISTORYPostmenopausal. TECHNIQUE Bone densitometry of the lumbar spine and left hip was performed. Thebest criteria for evaluation of osteoporosis is the T- value, whichrepresents the comparison of the patient's bone mass to an expectedpeak bone mass. For most patients, the mean T-value of L1 through L4is used to evaluate the lumbar spine. Based on the [facility] WorldHealth Organization classifications, the hip is evaluated [...] left hip. Reported By: KEYA TREJO M.D. 08-Jak-366179:46 HgA1C , Office (77066) HgA1C , Office 6.7 % (Normal) Range: 4.6 - 7.1 79-Chm-673769:46 Blood Glucose , Office (60672) Blood Glucose , Office 170 (Normal) :46 [...] Report See Note (Normal) Comments: Exam Number: [id number] RIGHT KNEE CLINICAL INFORMATIONKnee pain. Standing AP [...] Report See Note (Normal) Comments: Exam Number: [id number] CT CHEST NONCONTRAST CLINICAL STATEMENTFollow of lung [...] RICHARD CANADA M.D. :33 HgA1C , Office (06001) HgA1C , Office 6.5 % (Normal) Range: 4.6 - 7.1 :33 Blood Glucose , Office (50228) Blood Glucose , Office 89 (Normal) :34 [...] Range: 6.4-8.2 :17 Blood Glucose , Office (10085) Blood Glucose , Office 175 (Normal) :41 [...] T PROT 7.0 g/dL (Normal) Range: 6.4-8.2 14-Nov-20069:41 ROUTINE UA BILIRUBIN URINE SeeNote (Normal) Comments: [...] Report See Note (Normal) Comments: Exam Number: [id number] CT SCAN OF CHEST HISTORYCough. Consecutive axial [...] is suggested. Reported By: KEYA TREJO M.D. 6-Coc-133174:45 HgA1C , Office (52231) Comments: [facility] HgA1C , Office 6.6 % (Normal) Range: 4.6 - 7.1 :45 Blood Glucose , Office (39924) Comments: [facility] Blood Glucose , Office 105 (Normal) :55 [...] Report See Note (Normal) Comments: Exam Number: [id number] CHEST PA AND LATERAL STATEMENTCough and pneumonia. [...] CHIVO MONIQUE M.D. :41 HgA1C , Office (06868) HgA1C , Office 6.8 % (Normal) Range: 4.6 - 7.1 :41 Blood Glucose , Office (30159) Blood Glucose , Office 126 (Normal) 43-Bcu-148300:11 CBCD,SMEAR DIFF CELLS COUNTED 100 (Normal) EOS [...] 47-70 WBC 7.4 K/mm3 (Normal) Range: 4.4-11.0 37-Lyr-813138:11 COMP METABOLIC A/G 1.1 {RATIO} (Normal) Range: [...] T PROT 7.1 g/dL (Normal) Range: 6.4-8.2 64-Jqk-544391:11 COMPLETE UA BACTERIA 0 SEEN {/hpf} (Normal) [...] (Normal) Range: 0-5 Comments: Result: 0-5 SEEN 43-Btv-404681:11 MICROALBUMIN,UR 9.1 mg/L (Normal) :11 PFLIP CHOL 141 mg/dL (Normal) Comments: <200 [...] mg/dL VLDL 58 mg/dL (Abnormal) Range: 5-40 31-Gdj-397197:11 TSH 0.85 {uIU/mL} (Normal) Range: 0.34-4.82 :11 HgA1C , Office (61872) HgA1C , Office 6.7 % (Normal) Range: 4.6 - 7.1 :11 Blood Glucose , Office (65748) Blood Glucose , Office 153 (Normal) Plan of Care Name Dates Details Instructions Type 2 diabetes mellitus, uncontrolled : Follow up in 3 months Indication: Type 2 diabetes mellitus, uncontrolled Coronary artery disease : Reviewed Bench Scientist Letter Indication: Coronary artery disease Hypertensive heart [...] heart failure Coronary artery disease : Reviewed Bench Scientist Letter Indication: Coronary artery disease Diabetes mellitus [...] ATRIAL FIBRILLATION (Renamed from A-fib) : Reviewed Bench Scientist Letter Indication: ATRIAL FIBRILLATION (Renamed from A-fib) [...] ATRIAL FIBRILLATION (Renamed from A-fib) : Reviewed Bench Scientist Letter Indication: ATRIAL FIBRILLATION (Renamed from A-fib) Type 2 diabetes mellitus, uncontrolled : Follow up in 3 months Indication: Type 2 diabetes mellitus, uncontrolled Gout, arthritis : Reviewed Lab Indication: Gout, arthritis Asthma : Reviewed Bench Scientist Letter Indication: Asthma Type 2 diabetes mellitus, uncontrolled : *Diabetes Education Indication: Type 2 diabetes mellitus, uncontrolled Coronary artery disease : Reviewed Bench Scientist Letter Indication: Coronary artery disease Mixed dyslipidemia [...] Indication: Asthma Coronary artery disease : Reviewed Bench Scientist Letter Indication: Coronary artery disease Hypertensive heart [...] meninges : Follow up on Friday with [facility] Indication: Benign neoplasm of cerebral [...] : Follow up in 10 days with [facility] Indication: Cough Laryngitis : Laryngitis [...] pelvic and bimanual performed Planned Observations TSH (25978)Indication: ATRIAL FIBRILLATION (Renamed from A-fib) On: 43-Hes-813278:16 Request URINALYSIS, W/ MICRO (26683)Indication: Diabetes mellitus type II, controlled On: 04-Khh-504221:16 Request MICROALBUMIN: CREATININE RATIO (71549) AND (88386)Indication: Diabetes mellitus type II, controlled On: 00-Siu-686904:16 Request METABOLIC PANEL, COMPREHENSIVE (01153)Indication: Diabetes mellitus type II, controlled On: 86-Qdt-651934:16 Request LIPOPROTEIN, BLD, BY NMR (81932)Indication: Diabetes mellitus type II, controlled On: 61-Hqq-695447:16 Request LIPID PANEL (54662)Indication: Diabetes mellitus type II, controlled On: 57-Snc-071637:16 Request CBC W/AUTO DIFF WBC (56822)Indication: Diabetes mellitus type II, controlled On: 05-Yud-260052:15 Request VITAMIN B-12 (CYANOCOBALAMIN) (29453)Indication: Other vitamin B12 deficiency anemia On: 7-Rww-273005:50 Request TSH (19532)Indication: ATRIAL FIBRILLATION (Renamed from A-fib) On: 2-Bth-803556:50 Request URINALYSIS, W/ MICRO (28907)Indication: Hypertensive heart disease without heart failure On: 3-Gey-051668:49 Request MICROALBUMIN: CREATININE RATIO (65347) AND (70590)Indication: Hypertensive heart disease without heart failure On: 3-Qjh-534987:49 Request METABOLIC PANEL, COMPREHENSIVE (52851)Indication: Hypertensive heart disease without heart failure On: 0-Dgv-869692:49 Request CBC W/AUTO DIFF WBC (87475)Indication: Hypertensive heart disease without heart failure On: 1-Hvr-891705:49 Request CALCIFEDIOL (87822)Indication: Vitamin D deficiency, unspecified On: 3-Cmr-811934:49 Request LIPID PANEL (42217)Indication: Mixed dyslipidemia On: 6-Tlb-383280:49 Request URINALYSIS, W/ MICRO (64046)Indication: Type 2 diabetes mellitus, uncontrolled On: 02-Whk-757941:23 Request MICROALBUMIN: CREATININE RATIO (95777) AND (61776)Indication: Type 2 diabetes mellitus, uncontrolled On: 70-Nfa-110659:23 Request HEMOGLOBIN GLYCLATED (HGB A1C) (77493)Indication: Type 2 diabetes mellitus, uncontrolled On: 75-Tab-243424:03 Request HgA1C , Office (82670)Indication: Type 2 diabetes mellitus, uncontrolled On: 94-Qzb-657355:46 Request Vitamin D Hydroxy (58834)Indication: Vitamin D deficiency, unspecified On: 08-Ubz-515543:16 Request VITAMIN B-12 (CYANOCOBALAMIN) (41739)Indication: Other vitamin B12 deficiency anemia On: 36-Lwi-487548:16 Request CBC with auto diff (19609)Indication: Iron deficiency anemia, unspecified On: 04-Dra-772304:15 Request LIPID PANEL (97334)Indication: Mixed dyslipidemia On: 03-Jub-803753:15 Request METABOLIC PANEL, COMPREHENSIVE (52342)Indication: Type 2 diabetes mellitus, uncontrolled On: 47-Etk-883473:15 Request CBC W/AUTO DIFF WBC (20341)Indication: Iron deficiency anemia, unspecified On: 50-Dgh-687749:44 Request URINALYSIS, W/ MICRO (16981)Indication: Heart disease, hypertensive, malignant, without heart failure On: 40-Bxz-783909:44 Request METABOLIC PANEL, COMPREHENSIVE (58894)Indication: Heart disease, hypertensive, malignant, without heart failure On: 05-Hjx-480114:44 Request MICROALBUMIN: CREATININE RATIO (05581) AND (01606)Indication: Heart disease, hypertensive, malignant, without heart failure On: 70-Vyt-342237:44 Request IRON (74255)Indication: Iron deficiency anemia, unspecified On: 85-Pdg-504841:44 Request CBC, Platelets & Auto Diff (15369)Indication: SOB On: 3-Cqg-300392:09 Request Renal function Panel (51900)Indication: SOB On: 5-Twc-476954:09 Request Vitamin D Hydroxy (81227)Indication: Vitamin D deficiency, unspecified On: 75-Lzf-877275:04 Request VITAMIN B-12 (CYANOCOBALAMIN) (57992)Indication: Other vitamin B12 deficiency anemia On: :04 Request METABOLIC PANEL, COMPREHENSIVE (47434)Indication: Type 2 diabetes mellitus, uncontrolled On: 77-Kvv-223470:04 Request IRON (35949)Indication: Iron deficiency anemia, unspecified On: 94-Kzu-276581:59 Request IRON (45290)Indication: Iron deficiency anemia, unspecified On: :18 Request CBC WITH MANUAL DIFF (47359)Indication: Iron deficiency anemia, unspecified On: 95-Pnh-896307:43 Request METABOLIC PANEL, COMPREHENSIVE (91774)Indication: Hypertensive heart disease without heart failure On: 75-Hle-131155:43 Request CBC with manual diff (28034)Indication: Anemia On: :53 Request Comments: recheck in 3 months Ferritin (52750)Indication: Anemia On: :53 Request Iron Binding Capacity (TIBC) (62566)Indication: Anemia On: :53 Request Iron (72419)Indication: Anemia On: :53 Request LIPID PANEL (52321)Indication: Mixed dyslipidemia On: 85-Qtg-468336:43 Request IRON (42920)Indication: Iron deficiency anemia, unspecified On: 53-Wxz-786893:35 Request Vitamin D Hydroxy (72392)Indication: Vitamin D deficiency, unspecified On: 5-Qgu-024409:14 Request METABOLIC PANEL, COMPREHENSIVE (78003)Indication: Type 2 diabetes mellitus, uncontrolled On: 0-Ndv-223148:13 Request IRON BINDING CAPACITY (TIBC) (10473)Indication: Iron deficiency anemia, unspecified On: 9-Spi-112919:10 Request FERRITIN (23884)Indication: Iron deficiency anemia, unspecified On: 6-Bua-215178:10 Request IRON (09727)Indication: Iron deficiency anemia, unspecified On: 5-Vrv-147006:10 Request MICROALBUMIN: CREATININE RATIO (69713) AND (68517)Indication: Type 2 diabetes mellitus, uncontrolled On: :58 Request METABOLIC PANEL, COMPREHENSIVE (25458)Indication: Type 2 diabetes mellitus, uncontrolled On: : Request CBC WITH MANUAL DIFF (45147)Indication: Type 2 diabetes mellitus, uncontrolled On: :58 Request Vitamin D Hydroxy (45442)Indication: Vitamin D deficiency, unspecified On: : Request VITAMIN B-12 (CYANOCOBALAMIN) (10799)Indication: Other vitamin B12 deficiency anemia On: : Request LIPID PANEL (68682)Indication: Mixed dyslipidemia On: : Request METABOLIC PANEL, COMPREHENSIVE (45654)Indication: Hypertension On: : Request CBC WITH MANUAL DIFF (29395)Indication: Other vitamin B12 deficiency anemia On: : Request VITAMIN D, 1, 25-DIHYDROXY (29727)Indication: Vitamin D deficiency, unspecified On: : Request Vitamin D Hydroxy (58052)Indication: Vitamin D deficiency, unspecified On: : Request LIPID PANEL (68195)Indication: Mixed dyslipidemia On: : Request METABOLIC PANEL, COMPREHENSIVE (89866)Indication: Diabetes mellitus type II, controlled On: : Request CBC WITH MANUAL DIFF (28705)Indication: Other vitamin B12 deficiency anemia On: :29 Request MICROALBUMIN: CREATININE RATIO (34276) AND (81650)Indication: Diabetes mellitus type II, controlled On: :29 Request VITAMIN B-12 (CYANOCOBALAMIN) (97794)Indication: Other vitamin B12 deficiency anemia On: :29 Request HEMOGLOBIN GLYCLATED (HGB A1C) (44109)Indication: Diabetes mellitus type II, controlled On: :27 Request LIPID PANEL (50460)Indication: Mixed dyslipidemia On: :16 Request METABOLIC PANEL, COMPREHENSIVE (45109)Indication: Type 2 diabetes mellitus, uncontrolled On: :15 Request CBC WITH MANUAL DIFF (54945)Indication: Type 2 diabetes mellitus, uncontrolled On: :15 Request MICROALBUMIN: CREATININE RATIO (91317) AND (12323)Indication: Type 2 diabetes mellitus, uncontrolled On: :15 Request VITAMIN B-12 (CYANOCOBALAMIN) (51670)Indication: Other vitamin B12 deficiency anemia On: :15 Request Vitamin D Hydroxy (26929)Indication: Vitamin D deficiency, unspecified On: :15 Request HgA1C , Office (07266)Indication: Type 2 diabetes mellitus, uncontrolled On: 86-Zzz-029527:38 Request VITAMIN B-12 (CYANOCOBALAMIN) (93360)Indication: Other vitamin B12 deficiency anemia On: :55 Request LIPID PANEL (56559)Indication: Mixed dyslipidemia On: :55 Request METABOLIC PANEL, COMPREHENSIVE (66927)Indication: Heart disease, hypertensive, malignant, without heart failure On: :53 Request CBC WITH MANUAL DIFF (48829)Indication: Diverticulitis On: :53 Request LEUKOCYTE COUNT, FECAL (02434)Indication: Diarrhea On: :47 Request C.Difficile, Stool (46742)Indication: Diarrhea On: :47 Request BRO CULTURE-STOOL (31877)Indication: Diarrhea On: :47 Request Metabolic Panel, Comprehensive (60977)Indication: Abdominal pain, unspecified abdominal location On: :46 Request HEPATIC FUNCTION PANEL (85796)Indication: Abdominal pain, unspecified abdominal location On: :46 Request Bilirubin, Direct (54416)Indication: Abdominal pain, unspecified abdominal location On: :44 Request Bilirubin, total (54408)Indication: Abdominal pain, unspecified abdominal location On: :44 Request CBC WITH MANUAL DIFF (89955)Indication: Other vitamin B12 deficiency anemia On: 63-Poi-467160:15 Request VITAMIN B-12 (CYANOCOBALAMIN) (74192)Indication: Other vitamin B12 deficiency anemia On: 03-Ydg-685598:15 Request LIPID PANEL (56436)Indication: Mixed dyslipidemia On: 23-Mpi-178346:14 Request METABOLIC PANEL, COMPREHENSIVE (88991)Indication: Heart disease, hypertensive, malignant, without heart failure On: 29-Vlg-353035:14 Request Vitamin D Hydroxy (24106)Indication: Vitamin D deficiency, unspecified On: 28-Lhz-848858:06 Request CBC, PLATELETS & AUT DIFF (78905)Indication: Other vitamin B12 deficiency anemia On: :45 Request VITAMIN B-12 (CYANOCOBALAMIN) (18512)Indication: Other vitamin B12 deficiency anemia On: :45 Request HEPATIC FUNCTION PANEL (64777)Indication: Mixed dyslipidemia On: :44 Request LIPID PANEL (14543)Indication: Mixed dyslipidemia On: :44 Request Vitamin D Hydroxy (83230)Indication: vit d deficiency On: :33 Request Vitamin D Hydroxy (68177) On: :04 Request VITAMIN B-12 (CYANOCOBALAMIN) (59970)Indication: Other vitamin B12 deficiency anemia On: 57-Pqg-776738:04 Request CBC WITH MANUAL DIFF (13364)Indication: Heart disease, hypertensive, malignant, without heart failure On: 77-Qek-868601:03 Request METABOLIC PANEL, COMPREHENSIVE (40141)Indication: Heart disease, hypertensive, malignant, without heart failure On: 09-Bol-617785:03 Request LIPOPROTEIN, BLD, BY NMR (00654)Indication: Mixed dyslipidemia On: : Request HEPATIC FUNCTION PANEL (24610)Indication: Mixed dyslipidemia On: 51-Rfx-541884: Request LIPID PANEL (26108)Indication: Mixed dyslipidemia On: 13-Jpo-099754:01 Request FOLIC ACID SERUM (29224)Indication: Anemia On: 16-Cxb-659189:06 Request FERRITIN (34853)Indication: Anemia On: : Request IRON (79173)Indication: Anemia On: 60-Nbt-196519: Request IRON BINDING CAPACITY (TIBC) (65593)Indication: Anemia On: 26-Wrb-914173:05 Request RETICULOCYTE COUNT MANUL (80726)Indication: Anemia On: 35-Fyh-920558: Request LDH (LD) (LACTATE DEHYDROGENASE) (27320)Indication: Anemia On: :05 Request VITAMIN B-12 (CYANOCOBALAMIN) (65114)Indication: Anemia On: :05 Request CBC WITH MANUAL DIFF (78784)Indication: Anemia On: :25 Request HEPATIC FUNCTION PANEL (74327)Indication: Mixed dyslipidemia On: : Request LIPID PANEL (40719)Indication: Mixed dyslipidemia On: : Request MICROALBUMIN URINE QUANT (81031)Indication: Hypertension On: :42 Request TSH (53417)Indication: Hypertension On: :42 Request METABOLIC PANEL, COMPREHENSIVE (56043)Indication: Diabetes mellitus type II, controlled On: :42 Request HEPATIC FUNCTION PANEL (60768)Indication: Mixed dyslipidemia On: :42 Request LIPID PANEL (17337)Indication: Mixed dyslipidemia On: :42 Request CBC WITH MANUAL DIFF (67711)Indication: Anemia On: 82-Uoz-78115:36 Request HEPATIC FUNCTION PANEL (67664)Indication: Mixed dyslipidemia On: 57-Pbv-15025:36 Request LIPID PANEL (96758)Indication: Mixed dyslipidemia On: :36 Request HgA1C , Office (61709)Indication: Diabetes mellitus type II, controlled On: :17 Request URINALYSIS W/O MICRO (03725)Indication: Hypertension On: :47 Request TSH (43582)Indication: Hypertension On: 85-Twj-676819:47 Request METABOLIC PANEL, COMPREHENSIVE (49629)Indication: Hypertension On: 92-Epu-564332:47 Request CBC WITH MANUAL DIFF (08856)Indication: Hypertension On: 08-Msv-924018:47 Request Thin prep Pap (51262)Indication: well female - pap pelvic and bimanual performed On: 5-Uoj-772320:02 Request Planned Encounters Medical; 3 Month FU - On: 15-Dec-2017 10:30 [facility] Nia Uriostegui DO, DO, Kathleen Planned Procedures ELECTROCARDIOGRAM, COMPLETE (ECG) On: 27-Aug-2017 Intent (44763)By: Nia Uriostegui DO Comments: nsr - ivcd - pvc no acute chg DO, Nia B 12 Injection, 1000 mcg (J3420)By: On: 28-May-2017 Intent Moody DO, Nia Moody DO, Comments: vitamin b12 1000mcg injectionlot: [id number]:11/2018L DELT IMpt tolerated wellAD GREEN WARE CASTER Nia B 12 Injection, 1000 mcg (J3420)By: On: 12-Feb-2017 Intent Moody DO, Nia Moody DO, Comments: 1 ml given lt arm lot [id number] exp 06/28 Nia B 12 Injection, 1000 mcg (J3420)By: On: 29-Nov-2016 Intent Moody DO, Nia Moody DO, Comments: b12 1000mcglot: [id number]: 03/2018L DELT IMpt tolerated wellAD GREEN WARE CASTER Nia Flu Vaccine (Quadrivalent) 18710Ul: On: 07-Nov-2016 Intent Moody DO, Nia Moody DO, Comments: Lot:[id number]:07/28/17Amt:0.5mlRoute:IMSite: L DltdGiven By: RAHUL Bar signed Nia B 12 Injection, 1000 mcg (J3420)By: On: 04-Nov-2016 Intent Moody DO, Nia Moody DO, Comments: lot [id number] exp [id number] mcgleft dltdIMas Nia B 12 Injection, 1000 mcg (J3420)By: On: 08-Aug-2016 Intent Moody DO, Nia Moody DO, Comments: Lot:[id number]:07/28Dose:1mlRoute:IMSite:l armGiven By:SASKIA signed Nia B 12 Injection, 1000 mcg (J3420)By: On: 24-Apr-2016 Intent Moody DO, Nia Moody DO, Comments: Lot:[id number]:05/28Dose:1mlRoute:IMSite:Given By:SASKIA signed Nia ELECTROCARDIOGRAM, COMPLETE (ECG) On: 24-Apr-2016 Intent (60757)By: Nia Uriostegui DO Comments: sinus ana no acute chg DO, Nia Aerosol Treatment (28502)By: Bela ROSAS, On: 27-Feb-2016 Intent Balbir Solu- Medrol Injection, 125mg On: 27-Feb-2016 Intent (J2930)By: Balbir Cramer MD Comments: lot [id number] 07/20188936306 mgleft gmIMas, GREEN WARE CASTER Pulse Oximetry (72646)By: Bela ROSAS, On: 16-Jan-2016 Intent Balbir Aerosol Treatment ([id number])By: Bela ROSAS, On: 16-Jan-2016 Intent Balbir Solu- Medrol Injection, 125mg On: 16-Jan-2016 Intent (J2930)By: Balbir Cramer MD Comments: Lot:[id number]:06/28Dose:125mgRoute:imSite:r hipGiven By:SASKIA signed CHEST XRAY, PA & LATERAL (36863)By: On: 16-Jan-2016 Intent Balbir Cramer MD Comments: ?PNA CAROTID ULTRASOUND (94856)By: Bela On: 16-Jan-2016 Intent Balbir ROSAS DEXA SCAN AXIAL SKELETON (23650)By: On: 16-Jan-2016 Intent Balbir Cramer MD MAMMOGRAM, SCREENING, BOTH BREAST On: 16-Jan-2016 Intent (11185)By: Balbir Cramer MD B 12 Injection, 1000 mcg (J3420)By: On: 16-Jan-2016 Intent Balbir Cramer MD Comments: lot: [id number]: ite/route: L del/IMamt: 1mLVIS signed when applicableMONSTER Molina B 12 Injection, 1000 mcg (J3420)By: On: 11-Oct-2015 Intent Balbir Cramer MD Flu Vaccine (Quadrivalent) [id number]: On: 11-Oct-2015 Intent Balbir Cramer MD Comments: Lot #[id number]-0/30/17ite-L dltd, IMDose prefilled syringegiven by:MAYCO OSWALD and ABN signed B 12 Injection, 1000 mcg (J3420)By: On: 22-May-2015 Intent Fast DO, Maylin A B 12 Injection, 1000 mcg (J3420)By: On: 17-Mar-2015 Intent Fast DO, Maylin A Comments: lot: [id number]: 10/27site/route: L del/IMamt: 1mLVIS signed when applicableChelsea, SANDBLASTING SUPERVISOR PNEUM VAC ADLT/IMUMNOSPR, SBC/INTRM On: 30-Dec-2014 Intent (04920)By: Maylin Melendez DO Comments: PNUEMOlot:[id number]:1*13*17site:Rt deltoidroute:IMdose:.5mlDEMICK, SMA B 12 Injection, 1000 mcg (J3420)By: On: 30-Dec-2014 Intent Maylin Melendez DO Comments: B12lot:[id number]:05/27site: LT deltoidROute: IMdose:1ml ADMINISTRATION OF INFLUENZA VIRUS On: 21-Oct-2014 Intent VACCINE (G0008)By: Maylin Melendez DO FLU VAC, SPLIT, >3 YEARS, INTRAMUSC On: 21-Oct-2014 Intent (78673)By: Maylin Melendez DO Comments: lot: [id number]: 08/09/16site/route: L del/IMamt: 1mLVIS signed when applicableChelsea, SANDBLASTING SUPERVISOR MAMMOGRAM, SCREENING, BOTH BREAST On: 05-Oct-2014 Intent ([id number])By: Maylin Melendez DO Cartoid DopplerBy: Maylin Melendez DO On: 05-Oct-2014 Intent B 12 Injection, 1000 mcg (J3420)By: On: 05-Oct-2014 Intent Maylin Melendez DO Comments: Lot:[id number]:02Route:IMSite:R deltoidDose: 1 mLgiven by: Adalgisa Sexton CMA B 12 Injection, 1000 mcg (J3420)By: On: 01-Sep-2014 Intent Adalgisa Sexton Comments: Lot:[id number]:12.26Route:IMSite:R deltoidDose: 1 mLgiven by: Adalgisa Sexton CMA B 12 Injection, 1000 mcg (J3420)By: On: 26-May-2014 Intent Adalgsia Sexton Comments: lot:[id number]:04/25route:IMdose:1MLSite:R deltoidgiven by: ANS B 12 Injection, 1000 mcg (J3420)By: On: 11-Apr-2014 Intent Carinaursula PEDROZA Kaci Comments: lot: [id number]: 11/25Dose: 1,000 mcgSite: l dltdLocation; IMby: Solu -Medrol Injection, 125 mg On: 22-Feb-2014 Intent (J2930)By: Maylin Melendez DO Comments: [id number] 6.52594 mgleft gmIMas, GREEN WARE CASTER Solu -Medrol Injection, 125 mg On: 31-Jan-2014 Intent (J2930)By: Sherrie Amor CNP Comments: lot [id number] 06/2016location R hiproute imgiven by - msmith VIS and/or ABN signed B 12 Injection, 1000 mcg (J3420)By: On: 21-Jan-2014 Intent Maylin Melendez DO Comments: lot [id number] 05/2015location L armroute imgiven by - msmith VIS and/or ABN signed Aerosol Treatment (32697)By: Mt On: 14-Jan-2014 Intent Sherrie OJEDA Radiology - ChestBy: Sherrie Amor CNP On: 14-Jan-2014 Intent E Comments: stat call results to Dr Uriostegui is fashion illustrator EKG (66581)By: Sherrie Amor CNP On: 14-Jan-2014 Intent Comments: looks same as before No new ST -t wave changes ADMINISTRATION OF INFLUENZA VIRUS On: 29-Nov-2013 Intent VACCINE (G0008)By: Maylin Melendez DO Comments: Lot #[id number]-2.2015Site-L dltd, IMDose prefilled syringegiven by:LORIN laurent and ABN signed FLU VAC, SPLIT, >3 YEARS, INTRAMUSC On: 29-Nov-2013 Intent (33101)By: Maylin Melendez DO B 12 Injection, 1000 mcg (J3420)By: On: 29-Nov-2013 Intent Maylin Melendez DO Comments: Antoinette us dltd, Im - see flowsheet for lot and exp Radiology - Knee - Left - Weight On: 06-Sep-2013 Intent BearingBy: Maylin Melendez DO MAMMOGRAM, SCREENING, BOTH BREAST On: 18-Aug-2013 Intent (19599)By: Fast DO, Maylin A B 12 Injection, 1000 mcg (J3420)By: On: 18-Aug-2013 Intent Al DO Maylin A Aerosol Treatment (11526)By: Mt On: 16-Jul-2013 Intent Sherrie OJEDA Aerosol Treatment (38328)By: Mt On: 09-Jul-2013 Intent Sherrie OJEDA Radiology - ChestBy: TaylamillieSherrie sherman CNP On: 09-Jul-2013 Intent E Eprescribed prescriptions (G8553)By: On: 09-Jul-2013 Intent Sherrie Amor CNP B 12 Injection, 1000 mcg (J3420)By: On: 24-Jun-2013 Intent Visit, Nurse Eprescribed prescriptions (G8553)By: On: 24-Jun-2013 Intent Visit, Nurse Solu- Medrol Injection, 125mg On: 21-Jun-2013 Intent (J2930)By: Mt OJEDASherrie Cartoid DopplerBy: Al DO Maylin A On: 05-May-2013 Intent Eprescribed prescriptions (G8553)By: On: 05-May-2013 Intent Al DO Maylin A B 12 Injection, 1000 mcg (J3420)By: On: 27-Apr-2013 Intent Visit, Nurse Comments: Lot:[id number]:12/25Dose:1mlRoute:IMSite:l armGiven By:SASKIA signed Aerosol Treatment (52988)By: Moody On: 17-Feb-2013 Nia Amaya DO, DO, Kathleen Comments: more q/e less cough -- ok to use rescue inhaler prn not moer than bid with a fib -- if needs ansd worsen go to ER-- pulse reguar after treatment Spirometry (61070)By: Moody MCFARLAND, On: 17-Feb-2013 Intent Nia Reed DO Comments: mild restriction -- stable Solu- Medrol Injection, 125mg On: 17-Feb-2013 Intent (J2930)By: Nia Uriostegui DO Comments: lot: [id number]: 16site/route: RGM/IMamt: 2mLVIS signed when applicableChelsMONSTER armenta DO, Kathleen Eprescribed prescriptions (G8553)By: On: 17-Feb-2013 Intent Nia Uriostegui DO DONia EKG (56308)By: Maylin Melendez DO A On: 12-Jan-2013 Intent Comments: ekg showed normal sinus rhythym, left axis, no acute st/t wave changes Pelvic and Breast, Medicare On: 12-Jan-2013 Intent (G0101)By: Natalya Kohli Eprescribed prescriptions (G8553)By: On: 18-Dec-2012 Intent Maylin Melendez DO FLU VAC, SPLIT, >3 YEARS, INTRAMUSC On: 18-Dec-2012 Intent (11484)By: Natalya Kohli Comments: Lot #:[id number] date:mount given:0.5mlRoute: IMSite given: L dltdVIS and ABN signedGiven by: CHILO Gillespie ADMINISTRATION OF INFLUENZA VIRUS On: 18-Dec-2012 Intent VACCINE (G0008)By: Natalya Kohli B 12 Injection, 1000 mcg (J3420)By: On: 01-Dec-2012 Intent Tracy Barnes Comments: Lot:[id number]:09/24Dose:1mlRoute:IMSite:l armGiven By:SASKIA signed Eprescribed prescriptions (G8553)By: On: 02-Nov-2012 Intent Cipily OJEDA Sherrie Beck Radiology - Foot - RightBy: Ciesa On: 02-Nov-2012 Intent 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, Carlotta B 12 Injection, 1000 mcg (J3420)By: On: 19-Oct-2012 Intent Tracy Barnes Comments: lot: [id number]: 09/23site/route: L deltoid/IMamt: 1mLVIS signed when applicableChelsea, SANDBLASTING SUPERVISOR B 12 Injection, 1000 mcg (J3420)By: On: 31-Aug-2012 Intent Maylin Melendez DO Comments: Lot: [id number]: Opi42Tfu: 1000mcg/1mlRoute: IMSite: L deltoidGiven by: KASIA Samson Eprescribed prescriptions (G8553)By: On: 31-Aug-2012 Intent Natalya Kohli Nuclear Medicine - Other - Vertebral On: 18-Aug-2012 Intent AssessmentBy: Maylin Melendez DO Comments: V DXA, BONE DENSITY, AXIAL SKELETON On: 22-Jun-2012 Intent ([id number])By: Maylin Melendez DO MAMMOGRAM, SCREENING, BOTH BREASTS On: 22-Jun-2012 Intent (92132)By: Maylin Melendez DO B 12 Injection, 1000 mcg (J3420)By: On: 15-Jun-2012 Intent Tracy Barnes Comments: lot: [id number]: 12/24site/route: R deltoid/IMamt: 1,000mcgVIS signed when applicableChelsea, SANDBLASTING SUPERVISOR Eprescribed prescriptions (G8553)By: On: 17-Apr-2012 Intent Natalya Kohli B 12 Injection, 1000 mcg (J3420)By: On: 13-Apr-2012 Intent Ramona Vásquez Comments: Lot:[id number]:01/23Dose:1mlRoute:IMSite:r armGiven By:SASKIA signed Eprescribed prescriptions (G8553)By: On: 27-Mar-2012 Intent Susie Lopez LPN FLU VAC, SPLIT, >3 YEARS, INTRAMUSC On: 17-Jan-2012 Intent (52146)By: Maylin Melendez DO Comments: Lot #[id number]-1/13Site-left deltoidgiven by: Emili Stark LPN ADMINISTRATION OF INFLUENZA VIRUS On: 17-Jan-2012 Intent VACCINE (G0008)By: Maylin Melendez DO Eprescribed prescriptions (G8553)By: On: 17-Jan-2012 Intent Natalya Kohli B 12 Injection, 1000 mcg (J3420)By: On: 31-Dec-2011 Intent Maylin Melendez DO Comments: Lot:[id number]:Dose:1mlRoute:IMSite:L armGiven By:JACQUIE Aerosol Treatment (74392)By: Mt On: 24-Dec-2011 Intent Sherrie OJEDA B 12 Injection, 1000 mcg (J3420)By: On: 29-Oct-2011 Intent Natalya Kohli Comments: Lot #Exp-11.13Site-R arm, IMDose-prefilled syringegiven by:RAHUL Malloy signed CT - ChestBy: Maylin Melendez DO On: 24-Sep-[address] - ChestBy: Maylin Melendez DO On: 24-Sep-2011 Intent Holter Monitor 24 hrsBy: Al MCFARLAND, On: 17-Sep-2011 Intent Maylin Sherman Comments: please do this week and copy to dr clements EKG (69565)By: Maylin Melendez DO On: 17-Sep-2011 Intent Comments: [...] MAMMOGRAM, SCREENING, BOTH BREASTS On: 14-May-2011 Intent (33555)By: Maylin Melendez DO CT - ChestBy: Maylin [...] Lot:[id number]:01/21Amt:1mlRoute:IMSite:left deltGiven By: KASIA Hightower Eprescribed prescriptions (G8553)By: On: 14-Jan-[address] - ChestBy: Maylin Melendez DO On: 14-Jan-2011 Intent B 12 Injection, 1000 mcg (J3420)By: On: 21-Nov-2010 Intent Carol Reina LPN Comments: Lot #[id number]-11.21Site-Right dltd, IMDose 1mlgiven by:KASIA Medina Solu -Medrol Injection, 125 mg On: 24-Aug-2010 Intent (J2930)By: Sherrie Amor CNP Comments: Lot #[id number]-5.13Site-R hip, IMDose 125mg, 2 mlgiven by: Aerosol Treatment (95860)By: Mt On: 24-Aug-2010 Intent Sherrie OJEDA Pulse Oximetry (81096)By: Keesha RN, On: 24-Aug-2010 Intent Ericka Spirometry (21313)By: Maylin Melendez DO On: 03-Aug-2010 Intent A Comments: good efffort and curve normal EKG (35352)By: Maylin Melendez DO A On: 03-Aug-2010 Intent Comments: ekg showed normal sinus rhythym, normal axis, no acute st/t wave changes poor r wave progression Radiology - Chest- PA and LatBy: Fast On: 03-Aug-2010 Intent Maylin MCFARLAND B 12 Injection, 1000 mcg (J3420)By: On: 11-Jul-2010 Intent Carol Stark LPN Comments: Lot #[id number]-01/20Site-left deltoidDose-1 mlgiven by: Emili Stark LPN TD Injection , IM (40378)By: Al On: 20-Apr-2010 Intent Maylin MCFARLAND Comments: Lot #[id number]/Site-L dtd, IMDose prefilledgiven by: B 12 Injection, 1000 mcg (J3420)By: On: 04-Apr-2010 Intent Carol Stark LPN Comments: Lot #[id number]-/12Site-left deltoidDose-1 mlgiven by:[facility] B 12 Injection, 1000 mcg (J3420)By: On: 16-Jan-2010 Intent Carol Reina LPN Comments: Lot #[id number]-1/11Site-R iyrJfse2uhrfrvz by: B 12 Injection, 1000 mcg (J3420)By: On: 12-Dec-2009 Intent Carol Stark LPN Comments: Lot #[id number]-06/21Site-left deltoidDose-1 mlgiven by:MAYRA FLU VAC, SPLIT, >3 YEARS, INTRAMUSC On: 14-Nov-2009 Intent (19470)By: Natalya Kohli ADMINISTRATION OF INFLUENZA VIRUS On: 14-Nov-2009 Intent VACCINE (G0008)By: Natalya Kohli Comments: Lot #: [id number] date:mount given: 0.5 mlRoute: IMSite given: left deltoid Given by: Lane Romeo RN DXA, BONE DENSITY, AXIAL SKELETON On: 01-Nov-2009 Intent (16046)By: Maylin Melendez DO MAMMOGRAM, SCREENING, BOTH BREASTS On: 01-Nov-2009 Intent (66337)By: Maylin Melendez DO ADMINISTRATION OF PNEUMOCOCCAL On: 01-Nov-2009 Intent VACCINE (G0009)By: Maylin Melendez DO PNEUM VAC ADLT/IMUMNOSPR, SBC/INTRM On: 01-Nov-2009 Intent (16709)By: Maylin Melendez DO B 12 Injection, 1000 mcg (J3420)By: On: 01-Nov-2009 Intent Carol Reina LPN Comments: Lot #[id number]-06/21Site-L dltdDose 30m/mlgiven by:KASIA GONZALES Pneumovax (76005)By: Carol Reina LPN On: 01-Nov-2009 Intent L Comments: Lot #[id number]-August 2010Site-R dltdDose 0.5mlgiven by:KASIA ANDERS B 12 Injection, 1000 mcg (J3420)By: On: 25-Aug-2009 Intent Carol Stark LPN Comments: Lot #[id number]-/12Site-left deltoidDose-1 mlgiven by:[facility] B 12 Injection, 1000 mcg (J3420)By: On: 13-Jul-2009 Intent Monik Rushing Comments: Lot #[id number]-01/2011Site-left gjywqusMgve5489zhg/1mlgiven by Diana Rushing LPN CT - ChestBy: Fast DO, Maylin A On: 05-Jun-2009 Intent Spirometry (75599)By: Seun, On: 05-Jun-2009 Intent Natalya Comments: goo deffort and curve mild small airway obst B 12 Injection, 1000 mcg (J3420)By: On: 24-May-2009 Intent Caorl Stark LPN Comments: Lot #[id number]-8/11Site-right deltoidDose-1 mlgiven by:[facility] Radiology - Knee - Right - Weight On: 23-Dec-2008 Intent BearingBy: Fast DO, Maylin A B 12 Injection, 1000 mcg (J3420)By: On: 23-Dec-2008 Intent Natalya Kohli Comments: Lot #:[id number] date:mount given:1mlRoute: IMSite given:left deltoidGiven by: CHILO Gillespie Aerosol Treatment (52737)By: On: 08-Nov-2008 Intent Natalya Carter Comments: post treatment breath sounds clear bilat. pt. states feels breathing better. Pulse Oximetry (99321)By: Raul, On: 08-Nov-2008 Intent Natalya Comments: 95% CT - ChestBy: Fast DO, Maylin A On: 03-Oct-2008 Intent Comments: november Ultrasound - GallbladderBy: Ciesa On: 15-Sep-2008 Intent Sherrie OJEDA Ultrasound - Abdomen Complete & On: 15-Sep-2008 Intent PelvisBy: Mt RUSTYSherrie B 12 Injection, 1000 mcg (J3420)By: On: 07-Sep-2008 Intent Mya Barahona Comments: lot #:[id number]:04/2010site:right deltoidGiven by CHILO Roque B 12 Injection, 1000 mcg (J3420)By: On: 02-Aug-2008 Intent Maylin Melendez DO Comments: 1ml given im lt mamie lot [id number] exp 12-20 B 12 Injection, 1000 mcg (J3420)By: On: 05-Jul-2008 Intent Layton Melendez DOa A Comments: Lot #[id number]-12/2009Site-left splfsdhFwqm3159zcf/1mlgiven by Diana Rushing LPN CT - Brain/HeadBy: Maylin Melendez DO A On: 31-May-2008 Intent EKG (93137)By: Maylin Melendez DO On: 10-May-2008 Intent Comments: ekg showed normal sinus rhythym, leftaxis, nonspecific t changges unchanged fromprevious Echo CompleteBy: Layton Melendez DOa A On: 10-May-2008 Intent PFT - CompleteBy: Maylin Melendez DO A On: 10-May-2008 Intent Pulse Oximetry (65888)By: Al MCFARLAND, On: 10-May-2008 Intent Maylin A Comments: 95 Spirometry (42844)By: Maylin Melendez DO On: 10-May-2008 Intent A Comments: good effort and curve mild restriction CT - ChestBy: Maylin Melendez DO A On: 10-May-2008 Intent Bio Z (89985)By: Maylin Melendez DO A On: 10-May-2008 Intent Comments: numbers loog good INJECTION, VITAMIN B-12 On: 10-May-2008 Intent CYANOCOBALAMIN, UP TO 1000 MCG (Special Coverage Instructions Apply. See CIM: 45-4 and MCM: 9) (J3420)By: Natalya Kohli B 12 Injection, 1000 mcg (J3420)By: On: 08-Apr-2008 Intent Ericka Thao RN B 12 Injection, 1000 mcg (J3420)By: On: 11-Mar-2008 Intent Susanna Masterson Comments: Lot #[id number] date:mount given:1mlSite given: left deltoidGiven by: INJECTION, VITAMIN B-12 On: 01-Feb-2008 Intent CYANOCOBALAMIN, UP TO 1000 MCG (Special Coverage Instructions Apply. See CIM: 45-4 and MCM: 2048) (J3420)By: Roberto Muhammad LPNsie B 12 Injection, 1000 mcg (J3420)By: On: 01-Jan-2008 Intent Monik Rushing Comments: Lot #[id number]-5/10Site-left lpfqjwqAvdo4vwycsev by Diana Rushing LPN INJECTION, VITAMIN B-12 On: 03-Dec-2007 Intent CYANOCOBALAMIN, UP TO 1000 MCG Comments: injection given in left deltoid, Ptolerated welllo # [id number] 06/19 (Special Coverage Instructions Apply. See CIM: 45-4 and MCM: 2048) (J3420)By: Irais Monreal B 12 Injection, 1000 mcg (J3420)By: On: 26-Nov-2007 Intent Monik Rushing Comments: Lot #[id number]-5/10Site-left nttmklsVnyj3phmepsz by Diana Rushing LPN INJECTION, VITAMIN B-12 On: 19-Nov-2007 Intent CYANOCOBALAMIN, UP TO 1000 MCG (Special Coverage Instructions Apply. See CIM: 45-4 and MCM: 2048) (J3420)By: Adriane Muhammad LPN INJECTION, VITAMIN B-12 On: 12-Nov-2007 Intent CYANOCOBALAMIN, UP TO 1000 MCG (Special Coverage Instructions Apply. See CIM: 45-4 and MCM: 2048) (J3420)By: Roberto Muhammad LPNsie B 12 Injection, 1000 mcg (J3420)By: On: 05-Nov-2007 Intent Adriane Muhammad LPN Cartoid DopplerBy: Maylin Melendez DO On: 30-Oct-2007 Intent Spirometry (64108)By: Maylin Melendez DO On: 30-Oct-2007 Intent A Comments: good effort and curve- some small airway decrease Radiology - Chest- PA and LatBy: Fast On: 30-Oct-2007 Intent DO Maylin A DXA, BONE DENSITY, AXIAL SKELETON On: 24-Jul-2007 Intent (64695)By: Maylin Melendez DO Comments: postmenopausal without estrogen MAMMOGRAM, SCREENING, BOTH BREASTS On: 24-Jul-2007 Intent (65495)By: Maylin Melendez DO Radiology - Knee - Right - Weight On: 15-Jun-2007 Intent BearingBy: Maylin Melendez DO Comments: call results CT - ChestBy: Maylin Melendez DO On: 03-Apr-[address] - ChestBy: Maylin Melendez DO On: 15-Aug-2006 Intent Spirometry (27843)By: Maylin Melendez DO On: 15-Aug-2006 Intent A Comments: good effort and curve- mild obstruction EKG (91347)By: Natalya Kohli On: 15-Aug-2006 Intent Comments: ekg showed normal sinus rhythym, normal axis, no acute st/t wave changes Radiology - ChestBy: LEE OJEDA, On: 25-Jun-2006 Intent PAMELA Comments: PA and LAT Solu- Medrol Injection, 125mg On: 25-Jun-2006 Intent (J2930)By: PAMELA HOWARD CNP Pulse Oximetry (61237)By: LEE OJEDA, On: 25-Jun-2006 Intent PAMELA Comments: pt tolerated well. ins waiver signed Aerosol Treatment (77406)By: LEE On: 25-Jun-2006 Intent PAMELA OJEDA Comments: ins wwaiver signed, pt tolerated well Spirometry (85502)By: Maylin Melendez DO On: 14-May-2006 Intent A Comments: good effort and curve-mild obstruction ADMINISTRATION OF PNEUMOCOCCAL On: 11-Feb-2006 Intent VACCINE (G0009)By: ULYSSES Quiñones PNEUM VAC ADLT/IMUMNOSPR, SBC/INTRM On: 11-Feb-2006 Intent (78329)By: ULYSSES Quiñones Bio Z (86928)By: Maylin Melendez DO On: 11-Feb-2006 Intent Comments: bp was 132/65- cardiac output, svr and thoracic fluid content is normal- will hold on med changes PNEUM VAC ADLT/IMUMNOSPR, SBC/INTRM On: 11-Feb-2006 Intent (01061)By: Maylin Melendez DO ADMINISTRATION OF PNEUMOCOCCAL On: 11-Feb-2006 Intent VACCINE (G0009)By: Maylin Melendez DO MAMMOGRAM, SCREENING, BOTH BREASTS On: 16-Oct-2005 Intent (75118)By: Maylin Melendez DO A Planned Medications INJECTION, METHYLPREDNISOLONE SODIUM SUCCINATE, UP TO 125 MG Ordered: 21-Jun-2013 Pending Mt SILVERWARE BUFFING 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, Carlotta INJECTION, METHYLPREDNISOLONE SODIUM SUCCINATE, UP TO 125 MG Ordered: 17-Feb-2013 Pending Nia Uriostegui DO, DO, Nia INJECTION, METHYLPREDNISOLONE SODIUM SUCCINATE, UP TO 125 MG Ordered: 31-Jan-2014 Pending Ciesa SILVERWARE BUFFING 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, Carlotta INJECTION, METHYLPREDNISOLONE SODIUM SUCCINATE, UP TO 125 MG Ordered: 24-Aug-2010 Pending Ciesa SILVERWARE BUFFING 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, Carlotta INJECTION, METHYLPREDNISOLONE SODIUM SUCCINATE, UP TO 125 MG Ordered: 22-Feb-2014 Pending Layton Melendez DOa A INJECTION, METHYLPREDNISOLONE SODIUM SUCCINATE, UP TO [...] 1000 MCG/ML Injection Solution Ordered: 01-Sep-2014 Pending Tristen Sextonison Vitamin B-12 1000 MCG/ML Injection Solution Ordered: 05-Oct-2014 Pending Al MCFARLAND Maylin A Vitamin B-12 1000 MCG/ML Injection Solution Ordered: 17-Mar-2015 Pending Al MCFARLAND, Maylin A Vitamin B-12 1000 MCG/ML Injection Solution Ordered: 29-Nov-2013 Pending Al MCFARLAND, Maylin A Vitamin B-12 1000 MCG/ML Injection Solution Ordered: 22-May-2015 Pending Al DO, Maylin A Vitamin B-12 1000 MCG/ML Injection Solution Ordered: 11-Oct-2015 Pending Balbir Cramer MD Vitamin B-12 1000 MCG/ML Injection Solution Ordered: 16-Jan-2016 Pending Balbir Cramer MD Vitamin B-12 1000 MCG/ML Injection Solution Ordered: 24-Apr-2016 Pending Nia Uriostegui DO, DO, Nia Vitamin B-12 1000 MCG/ML Injection [...] 1000 MCG/ML Injection Solution Ordered: 12-Dec-2009 Pending Hluszti GREEN WARE CASTER, Carol Vitamin B-12 1000 MCG/ML Injection Solution Ordered: 12-Feb-2017 Pending Moody DO, Nia Moody DO, Nia Vitamin B-12 1000 MCG/ML Injection Solution Ordered: 16-Jan-2010 Pending Long GREEN WARE CASTER, Carol L Vitamin B-12 1000 MCG/ML Injection Solution Ordered: 04-Apr-2010 Pending Hluszti GREEN WARE CASTER, Carol Vitamin B-12 1000 MCG/ML Injection Solution Ordered: 11-Jul-2010 Pending Hluszti GREEN WARE CASTER, Carol Vitamin B-12 1000 MCG/ML Injection Solution Ordered: 21-Nov-2010 Pending Long GREEN WARE CASTER, Carol L Vitamin B-12 1000 MCG/ML Injection Solution Ordered: 14-Jan-2011 Pending Natalya Kohli Vitamin B-12 1000 MCG/ML Injection Solution Ordered: 15-Feb-2011 Pending Long GREEN WARE CASTER, Carol L Vitamin B-12 1000 MCG/ML Injection Solution Ordered: 18-Mar-2011 Pending Hluszti GREEN WARE CASTER, Carol Vitamin B-12 1000 MCG/ML Injection Solution Ordered: 16-Apr-2011 Pending Ericka Thao RN Vitamin B-12 1000 MCG/ML Injection Solution Ordered: 23-May-2011 Pending Ericka Thao RN Vitamin B-12 1000 MCG/ML Injection Solution Ordered: 22-Jul-2011 Pending Hluszti GREEN WARE CASTER, Carol Vitamin B-12 1000 MCG/ML Injection Solution Ordered: 17-Sep-2011 Pending Flinner, Natalya Vitamin B-12 1000 MCG/ML Injection Solution Ordered: 29-Oct-2011 Pending SeunNatalya Vitamin B-12 1000 MCG/ML Injection Solution Ordered: 31-Dec-2011 Pending Fast DO, Maylin A Vitamin B-12 1000 MCG/ML Injection Solution Ordered: 13-Apr-2012 Pending Ramona Vásquez Vitamin B-12 1000 MCG/ML Injection Solution Ordered: 15-Jun-2012 Pending Molly Tracy Vitamin B-12 1000 MCG/ML Injection Solution Ordered: 31-Aug-2012 Pending Al MCFARLAND Maylin A Vitamin B-12 1000 MCG/ML Injection Solution Ordered: 19-Oct-2012 Pending Manjovank, Tracy Vitamin B-12 1000 MCG/ML Injection Solution Ordered: 01-Dec-2012 Pending Manchak, Tracy Vitamin B-12 1000 MCG/ML Injection Solution Ordered: 27-Apr-2013 Pending Visit, Nurse Vitamin B-12 1000 MCG/ML Injection Solution Ordered: 24-Jun-2013 Pending Visit, Nurse Vitamin B-12 1000 MCG/ML Injection Solution Ordered: 28-May-2017 Pending Nia Uriostegui DO, DO, Kathleen Instructions [...] Instructions Indication: Anemia Encounters Office Visit On: 27-Aug-2017 10:14 Encounter Reason: [...] for ER visit: note: (afib in [facility] from sat till wed). The patient [...] well. Patient has been compliant with instructions. [facility] End: 04-Apr-2015 23:22 t medication use: no [...] SOB. Had a stress test with my building construction ironworker and everything came back normal.), has decreased [...] weatching diet we talked about kyler catalan curriculum director she doesnt want to - we talked about diabetes disease progression- she notices swelling better if moving around more - hasnt been back to [place] for lungs so think should do that [...] had an MRI with doc up in [place] and was told that she had a [...] patient does not have durable power of employment attorney. The patient has noticed nothing from the geriatic depression scale. Other providers contributing to the patient's care are building construction ironworker, gastrologist an d other: (neurologist). Note for [...] medical issues: had damaris maneuver today at [employer] and helped some so far - her [...] Follow up, Laboratory Test Results - Date: (7/18/13). 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 The patient feels well with no complaints [...] first time happened while family there at [place] while family eating dinner - other time happened when her friend was talking about his open heart surgery - feels like may be panic or anxiety- she was at building construction ironworker a few mos ago and he had [...] states never got pneumovax lastt year- did маринаsyed lb janae vaccine- discussed needs follow up [...] 16-Oct-2005 10:11 r Annual Exam - Female: susie,still hasovariesEncounter Diagnosis: Hypertension (401.0), well female - pap pelvic and bimanual performed [facility] Historical Summary On: 06-Sep-2005 6:20 [facility] End: 06-Sep-2005 6:51 [facility]ayers [facility] Carrier BenefitJuderan sherman guarantor
--- OUTSIDE RECORDS SUMMARY | 2018-02-18 04:24 | XMS RPT_ITS | Continuity of Care Document ---
:1940 Author Organization [facility] Address [address] [place] [address] Phone Care Team Providers Name Role Phone Nia Uriostegui DO Unavailable Je Rodriguez Unavailable Dr. 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 Tessalon Perles 100 MG Oral Capsule 1-2 [...] End : 07-Nov-2016 Inactive VITAMIN D (ERGOCALCIFEROL), 09153EWJR (Oral Capsule) 1 cap once a week (98535 UNIT) Inactive Vitamin D3 99905 UNIT Oral Tablet 1 (one) Tablet weekly [...] : 01-Nov-2009 Discontinued Comments:This order discontinued per [facility]. AMLODIPINE BESYLATE, 5MG (Oral Tablet) 1 Tablet [...] : 17-Apr-2012 End : 17-Apr-2012 Discontinued ERGOCALCIFEROL, 92035HMFR (Oral Capsule) 1 (one) Capsule q week [...] days Quantity: 4 {Teaspoon(s)} Refills: 0 Ordered:25-Jun-2006 Monki Rushing Start : 25-Jun-2006 End : 15-Aug-2006 [...] Quantity: 90 {Tablet} Refills: 3 Ordered:17-Jan-[address] Start : 17-Jan-2012 End : 17-Jan-2012 Discontinued [...] 30 {Capsule} Refills: 3 Ordered:22-May-2015 Al Maylin Start : 22-May-2015 End : 22-May-2015 Discontinued Victoza 18 MG/3ML Subcutaneous Solution Pen-injector tad Soln Pen-inj qd for 0 days Quantity: 1 {Box} Refills: 0 Ordered:29-Nov-2016 Karen Uriostegui DO, DO, Kathleen Start : 29-Nov-2016 End : 29-Nov-2016 Discontinued Comments:0.6 sc qd for one week then1.2 sc qd for one week then 1.8 sc qdpt will switch to her tradjenta VITAMIN D (ERGOCALCIFEROL), 81710ZIPJ (Oral Capsule) 1 Capsule twice a week [...] related so will get her back to [facility] Status: Inactive as of 24-Apr-2016 Unspecified Diagnosis [...] Mammogram Completed Comments: 01-12-04 Date Value Details 15-Dec-2017 Arterial Duplex US, Limited Result: Comments: See Note; NOTES: [facility] Cardiovascular Services [address] [place] [address] Art Duplex US Unilat Lower Ext 12/15/17 1350 MR#: [id number] Acct: [id number] Name: COMFORT OLSON Rep #: [id number] : 1940 77 From: Je Ceron MD Attending Dr: JAYA GARZA Status: REG CLI Ordering Dr: Je Ceron MD Date: 12/15/17 Location: [facility] Sex: F C Admitted: Antoinette ludy For Study: F/U PSA thrombin injection Right Velocities RT MANAGER CONTENT - .72 x .74 cm with a [...] Ceron Performed By: Sanaz Sheth RVT 12/15/17 170 Date ____ Je Ceron MD CC: Nia Uriostegui DO; OUT OF TOWN DOCTOR; Je Ceron MD Date Dictated: 12/15/17 1350 Date Transcribed: 12/15/171701 Ultrasound Coordinator: Signed 12-Dec-2017 Arterial Duplex US, Limited Result: Comments: See Note; NOTES: [facility] Cardiovascular Services [address] [place] [address] Art Duplex US Unilat Lower Ext 12/12/17 1304 MR#: [id number] Acct: [id number] Name: COMFORT OLSON Rep #: [id number] : 1940 77 From: Je Ceron MD Attending Dr: Je Ceron MD Status: REG CLI Ordering Dr: Je Ceron MD Date: 12/12/17 Location: [facility] Sex: F C Admitted: Reason For Study: RT Groin pseudoanerysm thrombin injection Right Velocities Rt groin pseudoaneurysm successfully thrombosed s/p thrombin injection. Normal color flow and doppler signal MANAGER CONTENT and FV. P rocedure Exam performed in department. Interpretation Summary Successful thrombosis right femoral pseudoaneurysm __ Ordering Physician: Je Ceron Performed By: Sanaz Sheth RVT 12/12/17 1404 Date Je Ceron MD CC: Nia Uriostegui DO; Je Ceron MD Date Dictated: 12/12/17 1304 Date Transcribed: 12/12/17 1404 Ultrasound Coordinator: Signed 12-Dec-2017 Operative Report Result: Comments: See Note; NOTES: [facility] Medical Records Department [address] [place] [address] Operative Report 12/12/17 1359 MR#: [id number] Acct: [id number] Name: COMFORT OLSON Rep #: [id number] : 1940 77 From: Je Ceron MD [...] Visit Report Result: Comments: See Note; NOTES: [facility] 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 Greene. Patient is about 10 days out. She complained of swelling and pain. She presented to Dr. Richmond's office yesterday. A ultrasound was obtained. This demonstrates a 2 cm pseudoaneurysm in the [facility] groin but there is additional [...] Cosigner Signature: Date (if applicable) CC: Jonel Rsahid MD 12-Dec-2017 Office Visit Report Result: Comments: See Note; NOTES: [facility] Services [address] [place] [address] OFFICE VISIT Date of Service: 12/11/17 MR#: [id number] Acct: [id number] Patient: COMFORT OLSON Rep #: [id number] : 1940 Provider: Jonel Rashid MD Age/Sex: 77/F Location: [facility] Status: Signed Intake Intake Visit Reasons: PER HELEN, WOUND CK Chief Complaint: Follow up Allergies No Known Allergies Al lergy (Verified 10/08/17 10:23) Medications Albuterol IH (ProAir) [...] PO BID 08/24/17 [History Confirmed 10/31/17] Methscopolamine Indian 5 mg PO BID 08/24/17 [History Confirmed [...] -MATTIE Extrem Result: Comments: See Note; NOTES: [facility] Cardiovascular Services [address] [place] [address] Art Duplex US Bilat Lower Ext 12/11/17 1408 MR#: [id number] Acct: [id number] Name: COMFORT OLSON Rep #: [id number] : 1940 77 From: Je Ceron MD Attending Dr: Annemarie Parsons Status: REG CLI Ordering Dr: Jonel Rsahid MD Date: 12/11/17 Location: [facility] Sex: F C Admitted: Reason For Study: Rt groin pain/ecchymosis - Right Velocities Left Velocities RT MANAGER CONTENT - 1.2 x 1.2 cm with a velocity of 159.0 LT MANAGER CONTENT - .88 x .83 cm with a [...] Annemarie Parsons Performed By: Sanaz Sheth RVT 12/11/17 1819 Date Je Ceron MD CC: Jonel Rashid MD; Nia Uriostegui DO; Earl Parsons Date Dictated: 12/11/17 1408 Date Transcribed: 12/11/171818 Ultrasound Coordinator: Signed 04-Nov-2017 Operative Report Result: Comments: See Note; NOTES: [facility] Medical Records Department [address] [address] Operative Report 11/03/17 1228 MR#: [id number] Acct: [id number] Name: COMFORT OLSON Rep #: [id number] : 1940 76 From: Patrick Ellsworth MD PCP: Nia Uriostegui DO Status: [facility] Y Location: [facility] Problem List (1) New onset atrial flutter Status: Acute (2) Atherosclerotic heart disease of [place] coronary artery without angina pectoris Status: Chronic Qualifiers: [place] vs. transplanted heart: [place] heart Qualified Code(s): I25.10 - Atherosclerotic heart disease of [place] nitin nary artery without angina pectoris Comment: 08/06/2004 CABG x2 VILLAGRAN side to side to second Diagonal and end to side to Anterior Descending artery in Sequential fashion. [facility]: 08/01/2004; 10/15/2011 (3) Cardiomyopathy in diseases [...] is a 76-year-old female who presented to [facility] for an elective outpat ient [...] Visit 9xxxx: Other Procedure See Report - [id number] 11/04/17 0525 <Electronically signed by Patrick Ellsworth MD> Date Patrick Ellsworth MD CC: Patrick Ellsworth MD; Jonel Rashid MD; Nia Uriostegui DO Signed 03-Nov-2017 Operative Report Result: Comments: See Note; NOTES: [facility] Medical Records Department [address] [place] [address] Operative Report 11/03/17 1214 MR#: [id number] Acct: [id number] Name: COMFORT OLSON Rep #: [id number] : 1940 76 From: Jonel Rashid MD PCP: Nia Uriostegui DO Status: REG SDC Y Location: [facility] Operative Report Date of [...] Visit Report Result: Comments: See Note; NOTES: [facility] [address] [place] [address] OFFICE VISIT Date of Service: 10/08/17 MR#: [id number] Acct: [id number] Name: COMFORT OLSON p #: [id number] : 1940 Provider: Jonel Rashid MD Age/Sex: 76/F Location: [facility] Status: Signed HPI HPI Chief Complaint: [...] within a week she had presented ag n and required the same. 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 Arrangements were made at the [facility] for the above to be considered. [...] bundle branch block. 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) Coding Level of Care Code Off vis,est,level [...] Lead Electrocardiogram Result: Comments: See Note; NOTES: [facility] Cardiovascular Services [address] [place] [address] 12 Lead EKG 10/05/17 0149 MR#: [id number] Acct: [id number] Name: COMFORT OLSON Rep # : [id number] : 1940 76 From: Jonel Rashid MD [...] ECG Confirmed by JONEL RASHID MD ([id number]), brands editor AMIRA CASTRO ([id number]) on 10/07/2017 2:45:19 PM Referred By: Jonel Rashid Confirmed By:JONEL RASHID MD 10/07/17 1015 Date _ Jonel Rashid MD CC: Emery Allen MD; Nia Uriostegui DO Signed 07-Oct-2017 12 Lead Electrocardiogram Result: Comments: See Note; NOTES: [facility] Cardiovascular Services [address] [place] [address] 12 Lead EKG 10/05/17 0333 MR#: [id number] Acct: [id number] Name: COMFORT OLSON Rep # : [id number] : 1940 76 From: Jnoel Rashid MD Attending Dr: Status: DEP ER [...] ECG Confirmed by GAY ROSAS, JONEL ([id number]), brands editor AMIRA CASTRO (56) on 10/07/2017 2:42:56 PM Referred By: Kathleen Rashid Confirmed By:JONEL RASHID MD 10/07/17 144 Date Jonel Rashid MD CC: Emery Allen MD; Nia Uriostegui DO Signed 05-Oct-2017 Discharge Instruction Result: Comments: See Note; NOTES: [facility] Medical Records Department [address] [place] [address] Discharge Instruction 10/05/17 0440 MR#: [id number] Acct: [id number] Name: Liyah OLSON Rep #: [id number] : 1940 76 From: Emery Allen MD PCP: Nia Uriostegui DO Status: DEP ER ED Disposition - Plan for ED Patient: Chief Complaint: Palpitations Instructions: ED Paroxysmal Atrial Flutter Referrals: oJnel Rashid MD [STAFF PHYSICIAN] - Additional Instructions: [...] Primary Care Provi latrell. Call [facility] ([phone]) or report to the closest Emergency Room. Call 911 if necessary. 10/05/17 0528 <Electronically signed by Emery Allen MD> Date ____ Emery Allen MD Cosigner Signature (If Indicated): Date CC: Nia Uriostegui DO 05-Oct-2017 Emergency Department Summary Result: Comments: See Note; NOTES: [facility] Medical Records Department [address] [place] [address] Emergency Department Summary 10/05/17 0435 MR#: [id number] Acct: [id number] Name: COMFORT OLSON Rep #: [id number] : 1940 76 From: Emery Allen MD [...] flutter This not e was generated with Story To Collegeation software. It may contain incorrect words, spelling, and punctuation that were not noted in review of the chart prior to signing ED Disposition - Plan for ED Clarice ent: Chief Complaint: Palpitations Referrals: Nia Uriostegui DO [Primary Care Provider] - What to do if you have Problems For any increased pain, shortness of breath, bleeding, nausea or vomiting, chest pain, or any unexpected problems, contact your Primary Care Provider. Call [facility] ([phone]) or report to the closest Emergency Room. Call 911 if necessary. 10/05/17 0528 &#60 ;Electronically signed by Emery Allen MD> Date Emery Allen MD Cosigner Signature (If Indicated): Date CC: Nia Uriostegui DO 05-Oct-2017 Chest 1 View (Portable) Result: Comments: See Note; NOTES: [facility] Imaging Services [address] [place] [address] Chest 1 View (Portable) MR#: [id number] Acct: [id number] Name: COMFORT OLSON Rep #: [id number] : 1940 F 76 From: Chris Dwyer MD PCP: Nia Uriostegui DO Status: REG ER Study: Chest 1 View (Portable) Date of Exam: 10/05/17 Exam# [id number] Ordering Dr: Emery Allen MD STUDY: X-R [...] of the upper abdomen. ORDER # : [id number] RAD/Chest 1 View (Portable) IMPRESSION: Mild cardiomegaly. Minimal persistent left basilar atelectasis. No evidence for acute cardiopulmonary pathology. Electronically Signed: Chris Dwyer MD at 2:42 EDT , Service support , CC: Emery Allen MD; Nia Uriostegui DO Ultrasound Coordinator: Signed 03-Oct-2017 12 Lead Electrocardiogram Result: Comments: See Note; NOTES: [facility] Cardiovascular Services [address] [place] [address] 12 Lead EKG 10/02/17 1353 MR#: [id number] Acct: [id number] Name: COMFORT OLSON Rep # : [id number] : 1940 76 From: Jonel Rashid MD Attending Dr: Jonel Rashid MD Status: REG CLI Ordering Dr: Richard Lombardo RN CIRCULATING-C Date: 10/02/17 Location: [facility] Sex: F C Admitted: Test Reason : [...] intra-ventricular conduction block Abnormal ECG Confirmed by JNOEL RASHID MD ([id number]), brands editor AMIRA CASTRO (56) on 10/03/2017 1:43:28 PM Referred By: Jonel aRshid Confirmed By:USMAN RASHID MD 10/03/17 1343 Date Jonel Rashid MD CC: JOSSELYN Lombardo; Jonel Rashid MD; Nia Uriostegui DO Signed 02-Oct-2017 Echo, Complete w/ Contrast Result: Comments: See Note; NOTES: [facility] Cardiovascular Services [address] [place] [address] Echo Complete W/ Contrast 10/02/17 1250 MR#: [id number] Acct: [id number] Name: COMFORT JONES Rep #: [id number] : 1940 76 From: Jonel Rashid MD Attending Dr: Jonel Rashid MD Status: REG CLI Ordering Dr: Jonel Rashid MD Date: 10/02/17 Location: [facility] Sex: F C Admitted: Reason Fo r [...] Rashid erformed By: Rachel Oconnor, RDCS, RVT 10/02/171742 Date Jonel Rashid MD CC: Jonel stubbs MD; Nia Uriostegui DO Date Dictated: 10/02/17 1250 Date Transcribed: 10/02/171742 Ultrasound Coordinator: Signed 02-Oct-2017 12 Lead Electrocardiogram Result: Comments: See Note; NOTES: [facility] Cardiovascular Services [address] [place] [address] 12 Lead EKG 09/29/17 1035 MR#: [id number] Acct: [id number] Name: COMFORT OLSON Rep # : [id number] : 1940 76 From: Antonio Tovar MD [...] ECG Confirmed by ZARA ROSAS, ANTONIO ([id number]), brands editor AMIRA CASTRO (56) on 10/02/2017 1:30:21 PM Refer red By: BOZENA Confirmed By:ANTONIO TOVAR MD 10/02/17 0920 Date Antonio Tovar MD CC: Nia Uriostegui DO; Jignesh Tello MD Signed 02-Oct-2017 12 Lead Electrocardiogram Result: Comments: See Note; NOTES: [facility] Cardiovascular Services [address] [place] [address] 12 Lead EKG 09/29/17 1020 MR#: [id number] Acct: [id number] Name: COMFORT OLSON Rep # : [id number] : 1940 76 From: Antonio Tovar MD [...] ECG Confirmed by ZARA ROSAS, ANTONIO ([id number]), brands editor AMIRA CASTRO (56) on 10/02/2017 1:27:54 PM Referred By: BOZENA Confirmed By:ANTONIO TOVAR MD 10/02/17 1327 Date Antonio Tovar MD CC: Nia Uriostegui DO; Jignesh Tello MD Signed 02-Oct-2017 12 Lead Electrocardiogram Result: Comments: See Note; NOTES: [facility] Cardiovascular Services [address] [place] [address] 12 Lead EKG 09/29/17 0905 MR#: [id number] Acct: [id number] Name: COMFORT OLSON Rep # : [id number] : 1940 76 From: Antonio Tovar MD [...] Abnormal ECG Confirmed by ANTONIO TOVAR MD ([id number]), brands editor AMIRA CASTRO (56) on 10/02/2017 1:27:13 PM Referred By: BOZENA Anne d By:ANTONIO TOVAR MD 10/02/171326 Date Antonio Tovar MD CC: Nia Uriostegui DO; Jignesh Tello MD Signed 02-Oct-2017 12 Lead Electrocardiogram Result: Comments: See Note; NOTES: [facility] Cardiovascular Services [address] [place] [address] 12 Lead EKG 09/29/17 0926 MR#: [id number] Acct: [id number] Name: COMFORT OLSON Rep # : [id number] : 1940 76 From: Antonio Tovar MD [...] Abnormal ECG Confirmed by ANTONIO TOVAR MD ([id number]), brands editor AMIRA CASTRO (56) on 10/02/2017 1:26:27 PM Referr ed By: BOZENA Confirmed By:ANTONIO TOVAR MD 10/02/171325 Date Antonio Tovar MD CC: Nia Uriostegui DO; Jignesh Tello MD Signed 29-Sep-2017 Emergency Department Summary Result: Comments: See Note; NOTES: [facility] Medical Records Department [address] [place] [address] Emergency Department Summary 09/29/17911 MR#: [id number] Acct: [id number] Name: COMFORT OLSON Rep #: [id number] : 1940 76 From: Jignesh Tello MD [...] Sinus bradycardia. This note was generated with Tk20 dictation software. It may contain incorrect words, [...] problems, contact your Primary Care Provider. Call [facility] ([phone]) or report to the closest Emergency Room. Call 911 if necessary. 09/29/17 0535 <Electronically si gned by Jignesh Tello MD> Date Jignesh Tello MD Cosigner Signature (If Indicated): Date CC: Nia Uriostegui DO 29-Sep-2017 Chest 1 View (Portable) Result: Comments: See Note; NOTES: [facility] Imaging Services [address] [place] [address] Chest 1 View (Portable) MR#: [id number] Acct: [id number] Name: COMFORT OLSON Rep #: [id number] : 1940 F 76 From: John Babcock MD PCP: Nia Uriostegui DO Status: REG ER Study: Chest 1 View (Portable) Date of Exam: 09/29/17 Exam# [id number] Ordering Dr: Jignesh Tello MD STUDY: X-RAY [...] John Babcock MD at 9:55 EDT Tel [phone], Service support , CC: Nia Uriostegui DO; Jignesh Tello MD Ultrasound Coordinator: Signed 25-Sep-2017 Cardiology Visit Report Result: Comments: See Note; NOTES: [facility] [address] [place] [address] OFFICE VISIT Date of Service: 09/25/17 MR#: [id number] Acct: [id number] Name: COMFORT OLSON p #: [id number] : 1940 Provider: Jonel Rashid MD Age/Sex: 76/F Location: [facility] Status: Signed HPI HPI Chief Complaint: [...] brachial Intake Visit Reasons: 6 M FU Esl Instructor Required: No Accompanied by: nonw Is patient [...] BID 08/24/17 [History Confirmed 09/25/17] Met hscopolamine Indian 5 mg PO BID 08/24/17 [History Confirmed [...] PO QDAY tab 09/25/17 [History Confirmed 09/25/17] [facility] Medical History Other secondary pulmonary hypertension (Chronic) Cardiomyopathy in diseases classified elsewhere (Chronic) Other cerebral infarction (Chronic) Paroxysmal atrial fibrillation (Chroni c) Atrial enlargement, left (Chronic) Atherosclerotic heart disease of [place] coronary artery without angina pectoris (Chronic) HTN [...] only without the valsartan. 4. Atherosclerosis of [place] coronary artery of [place] heart without angina pectoris I25.10 08/06/2004 CA BG x2 VILLAGRAN side to side to second Diagonal and end to side to Anterior Descending artery in Sequential fashion. 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 transplan joel heart: [place] heart Mixed hyperlipidemia E78.2 Hyperlipidemia type: mixed hyperlipidemia Coding Level of Care Code Off vis,est,level 4 Diagnoses Paroxysmal atrial fibrillation I48.0 Cardiomyopath y in diseases classified elsewhere I43 Essential hypertension I10 Hypertension type: essential hypertension Atherosclerosis of [place] coronary artery of [place] heart without angina pectoris I25.10 [place] vs. transplanted heart: [place] heart Mixed hyperlipidemia E78.2 Hyperlipidemia type: mixed hyperlipidemia 09/25/17 1029 <Electronically signed by Jonel Rashid MD> Date __ Jonel Rashid MD Cosigner Signature: Date (if applicable) CC: Nia Uriostegui DO 26-Aug-2017 12 Lead Electrocardiogram Result: Comments: See Note; NOTES: [facility] Cardiovascular Services [address] [place] [address] 12 Lead EKG 08/24/17 1336 MR#: [id number] Acct: [id number] Name: COMFORT OLSON Rep # : [id number] : 1940 76 From: Jonel Rashid MD [...] Abnormal ECG Confirmed by JONEL RASHID MD ([id number]), brands editor AMIRA CASTRO (56) on 08/26/2017 1:37:24 PM Referred B y: YONI Confirmed By:JONEL RASHID MD 08/26/17 1337 Date Jonel Rashid MD CC: Nia Uriostegui DO; Alexis Kemp MD Signed 26-Aug-2017 12 Lead Electrocardiogram Result: Comments: See Note; NOTES: [facility] Cardiovascular Services [address] [place] [address] 12 Lead EKG 08/24/17 0956 MR#: [id number] Acct: [id number] Name: COMFORT OLSON Rep # : [id number] : 1940 76 From: Jonel aRshid MD Attending Dr: Status: DEP ER Ordering [...] Abnormal ECG Confirmed by JONEL RASHID MD ([id number]), brands editor AMIRA CASTRO (56) on 08/26/2017 12:50:18 PM Referred By: YONI Confirmed By:JONEL RASHID MD 08/26/17 1250 Date Jonel Rashid MD CC: Nia Uriostegui DO; Alexis Kemp MD Signed 24-Aug-2017 Emergency Department Summary Result: Comments: See Note; NOTES: [facility] Medical Records Department [address] [place] [address] Emergency Department Summary 08/24/17 1336 MR#: [id number] Acct: [id number] Name: COMFORT OLSON Rep #: [id number] : 1940 76 From: Alexis Kemp MD [...] coronary disease This note was generated with Tk20 dictation software. It may contain in correct [...] your Primary Care Provider. Call [facility] ([phone]) or [facility] Emergency Room. Call 911 if necessary. 08/24/17 1340 <Electronically signed by Alexis Kemp MD> Date Alexis Kemp MD Cosigner Signatu re (If Indicated): Date CC: Jonel Rashid MD; Nia Uriostegui DO 24-Aug-2017 Chest PA and Lateral Result: Comments: See Note; NOTES: [facility] Imaging Services [address] [place] [address] Chest PA and Lateral MR#: [id number] Acct: [id number] Name: COMFORT OLSON Rep #: [id number] : 1940 F 76 From: Clyde Matute MD PCP: Nia Uriostegui DO Status: REG ER Study: Chest PA and Lateral Date of Exam: 08/24/17 Exam# [id number] Ordering Dr: Alexis Kemp MD STUDY: X-RAY [...] CC: Nia Uriostegui DO; Alexis Kemp MD Ultrasound Coordinator: Signed 02-Jun-2017 12 Lead EKG performed by BMS Result: Comments: See Note; NOTES: [facility] [address] [place] [address] 12 Lead EKG performed by BMS 06/02/171120 MR#: [id number] Acct: [id number] Name: COMFORT OLSON Rep #: [id number] : 1940 76 From: Annemarie BLOOD Attending Dr: Annemarie Parsons Status: DEP AMB Ordering Dr: Annemarie Parsons Date: 06/02/17 Location: [facility] Sex: F C Admitted: BMS/12 Lead EKG performed by [facility] ECG Report Interpretation Sinus Rhythm -Intraventricular conduction defect and left axis -possible anterior fas cicular block consider ventricular hypertrophy. - Nonspecific T-abnormality. ABNORMAL Electronically signed on 06/04/2017 at 14:14 by Jonel Rashid 06/04/17 1415 Date Annemarie BLOOD CC: Nia Uriostegui DO Date Dictated: 06/02/171120 Date Transcribed: 06/02/171120 Ultrasound Coordinator: BARBY Signed 29-May-2017 Cardiology Visit Report Result: Comments: See Note; NOTES: [facility] [address] [place] [address] OFFICE VISIT Date of Service: 05/26/17 MR#: [id number] Acct: [id number] Name: COMFORT OLSON Re p #: [id number] : 1940 Provider: Annemarie Parsons Age/Sex: 76/F Location: [facility] Status: Signed HPI HPI Details: COMFORT [...] surgery in 2004. She had an VILLAGRAN dogc-mb-xbwt to second diagonal and to anterior descending [...] (BMI) 33.3 Intake Visit Reasons: per Susi Esl Instructor Required: No Accompanied by: NONE Is patient [...] PO DAILY 11/11/16 [History Confirmed 05/26/17] Methscopolamine Indian 5 mg PO BID 11/11/16 [History Confirmed [...] enlargement, left (Chronic) Atherosclerotic heart disease of [place] coronary artery without angina pectoris (Chronic) HTN [...] week for an EKG. 2. Atherosclerosis of [place] coronary artery of [place] heart without angina pectoris I25.10 08/06/2004 CABG x2 VILLAGRAN side to side to second Diagonal and end to side to Anterior [place] cending artery in Sequential fashion. [facility]: 08/01/2004; 10/15/2011 Plan - JEREMI Mcpherson . Patient has not had any symptoms of angina. We are adjusting her metoprolol for sinus bradycardia. We will continue to monitor. 3. Essential hypertension I10 Plan JEREMI Chaidez Blood pressure is adequately controlled however we are decreasing her metoprolol for her sinus bradycardia. 4. Mixed hyperlipidemia E78.2 Geoff - JEREMI Mcpherson Recent lipid profile demonstrates total cholesterol 174, HDL 26 unable to calculate LDL due to elevated triglycerides which were 678. Her diabe sharla is being managed by her primary care doctor. 5. Paroxysmal atrial fibrillation I48.0 JEREMI Schmidt Patient has not had any recurrence that [...] 1 Week (EKG) 05/26/17 (keep appt with INTELLIGENCE SPECIALIST) Coding Level of Care Code Off vis,est,level 4 Diagnos es Dyspnea on exertion R06.09 Atherosclerosis of [place] coronary artery of [place] heart without angina pectoris I25.10 [place] vs. transplanted heart: [place] heart Essential hypertension I10 Hypertension type: essential hypertension Mixed hyperlipidemia E78.2 Hyperlipidemia type: mixed hyperlipidemia Paroxysmal atrial fibrillation I48.0 Atrial fibrillation type: paroxysmal Coding Level of Care Code O ff vis,est,level 4 Diagnoses Dyspnea on exertion R06.09 Atherosclerosis of [place] coronary artery of [place] heart without angina pectoris I25.10 [place] vs. transplanted heart: [place] heart Essential hy pertension I10 Hypertension type: [...] by BMS Result: Comments: See Note; NOTES: [facility] [address] [place] [address] 12 Lead EKG performed by [facility] 05/26/17 1521 MR#: [id number] Acct: [id number] Name: COMFORT OLSON Rep #: [id number] : 1940 76 From: Annemarie BLOOD Attending Dr: Annemarie Parsons Status: DEP AMB Ordering Dr: Annemarie Parsons Date: 05/26/17 Location: [facility] Sex: F C Admitted: [facility]/12 Lead EKG performed by [facility] ECG Report Interpretation Marked sinus Bradycardia -Poor R-wave progression - nonspecific -consider old anterior infarct. -Nonspecific ST depression -Nondiagnostic. ABNORMAL Electronically signed on 05/27/2017 at 08:40 by Jonel Rashid 05/27/17 0841 Date Annemarie BLOOD CC: Nia Uriostegui DO Date Dictated: 05/26/17 152 Date Transcribed: 05/26/171520 Ultrasound Coordinator: BARBY Signed 16-May-2017 Office Visit Report Result: Comments: See Note; NOTES: [facility] Services [place] [address] OFFICE VISIT Date of Service: 05/16/17 MR#: [id number] Acct: [id number] Patient: COMFORT OLSON Rep #: [id number] : 1940 Provider: Jonel Rashid MD Age/Sex: 76/F Location: [facility] Status: Signed Intake Intake Visit Reasons: EKG PER BARBY Allergies No Known Allergies Allergy (Verified 05/14/17 [...] SON Y 11/11/16 [History Confirmed 05/14/17] Methscopolamine Indian 5 mg PO BID 11/11/16 [History Confirmed [...] Orozco 16-May-2017 12 Lead EKG performed by [facility] Result: Comments: See Note; NOTES: [facility] [address] [place] [address] 12 Lead EKG performed by [facility] 05/16/17 1044 MR#: [id number] Acct: [id number] Name: COMFORT OLSON Rep #: [id number] : 1940 76 From: Annemarie BLOOD Attending Dr: Gay ROSAS,Jonel Status: DEP AMB Ordering Dr: Annemarie Parsons Date: 05/16/17 Location: [facility] Sex: F C Adm itted: [facility]/12 Lead EKG performed by [facility] Sinus Bradycardia -Poor R-wave progression -may be secondary to pulmonary isease consider old anterior infarct. Rightward P/QRS axis and rota tion possible pulmonary disease. ABNORMAL 05/16/171649 <Electronically signed by Annemarie BLOOD> Date Annemarie BLOOD CC: Nia Uriostegui DO Date Dictated: 05/16/171043 Date Transcribed: 05/16/171043 Ultrasound Coordinator: MMKasia Signed 16-May-2017 12 Lead EKG performed by [facility] Result: Comments: See Note; NOTES: [facility] [address] [place] [address] 12 Lead EKG performed by BMS 05/16/174 MR#: [id number] Acct: [id number] Name: COMFORT OLSON Rep #: [id number] : 1940 76 From: Annemarie BLOOD Attending Dr: Gay ROSAS,Jonel Status: DEP AMB Ordering Dr: Annemarie Parsons Date: 05/16/17 Location: [facility] Sex: F C Adm itted: BMS/12 Lead EKG performed by [facility] ECG Report Interpretation Sinus Bradycardia -Poor R-wave progression -may be secondary to pulmonary disease conside r old anterior infarct. Rightward P/QRS axis and rotation -possible pulmonary disease. ABNORMAL Electronically signed on 05/17/2017 at 18:31 by Jonel Rashid 05/17/17 1834 Date Annemarie BLOOD CC: Nia Uriostegui DO Date Dictated: 05/16/171043 Date Transcribed: 05/16/17 104 Ultrasound Coordinator: MMM Signed 14-May-2017 Cardiology Visit Report Result: Comments: See Note; NOTES: [facility] [address] [place] [address] OFFICE VISIT Date of Service: 05/14/17 MR#: [id number] Acct: [id number] Name: COMFORT OLSON Re p #: [id number] : 1940 Provider: Annemarie Parsons Age/Sex: 76/F Location: [facility] Status: Signed HPI HPI Details: COMFORT OLSON, is a 76 F who presents to the office today for an urgent appointm ent for increased shortness of breath. Patient does have a hospital of coronary artery disease with bypass surgery in 2004. She had an VILLAGRAN lozh-aq-fgyw to second diagonal and to anterior descending [...] 5 in Intake Visit Reasons: per MS Esl Instructor Required: No Accompanied by: None Is patient [...] PO DAILY 11/11/16 [History Confirmed 05/14/17] Methscopolamine Indian 5 mg PO BID 11/11/16 [History Confirmed [...] PFSH Medical History Other secondary pulmonary hypertension ([employer] rosemarie) Cardiomyopathy in diseases classified elsewhere (Chronic) Other cerebral infarction (Chronic) Paroxysmal atrial fibrillation (Chronic) Atrial enlargement, left (Chronic) Atherosclerotic heart disea se of [place] coronary artery without angina pectoris (Chronic) HTN (hypertension) (Chronic) HLD (hyperlipidemia) (Chronic) Asthma (Chronic) Surgical History Presence of aortocoronary bypass graft (Ch ronic) History of left heart catheterization (LHC) [...] for an EKG 2. Ath erosclerosis of [place] coronary artery of [place] heart without angina pectoris I25.10 08/06/2004 CABG x2 VILLAGRAN side to side to second Diagonal and end to side to Anterior Descending artery in Sequential fashion. [facility]: 08/01/2004; 10/15/2011 Plan - JEREMI Mcpherson [...] Diagnoses Paroxysmal atrial fibrillation I48.0 Atherosclerosis of [place] coronary artery of [place] heart without angina pectoris I25.10 [place] vs. transplanted heart: [place] heart Essential hy pertension I10 Hypertension type: essential hypertension Mixed hyperlipidemia E78.2 Hyperlipidemia type: mixed hyperlipidemia Coding Level of Care Code Off vis,est,level 4 Diagnoses Paroxysmal atrial fibrillation I48.0 Atherosclerosis of [place] coronary artery of [place] heart without angina pectoris I25.10 [place] vs. transplanted heart: [place] heart Essential hypertension I10 Hypertension type: ess ential hypertension Mixed hyperlipidemia E78.2 Hyperlipidemia type: mixed hyperlipidemia 05/14/17 1718 <Electronically signed by Annemarie BLOOD> Date Annemarie BLOOD 05/14/17 1732<Electronically signed by Jonel Rashid MD> Cosigner Signature: Date (if applicable) Jonel Rashid MD CC: Nia Uriostegui DO 14-May-2017 12 Lead EKG performed by [facility] Result: Comments: See Note; NOTES: [facility] [address] [place] [address] 12 Lead EKG performed by [facility] 05/14/17 1104 MR#: [id number] Acct: [id number] Name: COMFORT OLSON Rep #: [id number] : 1940 76 From: Annemarie BLOOD Attending Dr: Annemarie Parsons Status: DEP AMB Ordering Dr: Annemarie Parsons Date: 05/14/17 Location: [facility] Sex: F C Admitted: BMS/12 Lead EKG performed by [facility] Marked sinus Bradycardia -Intraventricular conduction defect -consider left entricular hypertrophy. -Lateral infarct -age undetermined. - -abnormality -Possible Inferior and lateral ischemia. ABNORMAL 05/15/17 1041 <Electronically signed by Annemarie BLOOD> Date M farhan BLOOD CC: Nia Uriostegui DO Date Dictated: 05/14/171103 Date Transcribed: 05/14/171103 Ultrasound Coordinator: BARBY Signed 14-May-2017 12 Lead EKG performed by BMS Result: Comments: See Note; NOTES: [facility] [address] [place] [address] 12 Lead EKG performed by BMS 05/14/171103 MR#: [id number] Acct: [id number] Name: COMFORT OLSON Rep #: [id number] : 1940 76 From: Annemarie BLOOD Attending Dr: Annemarie Parsons Status: DEP AMB Ordering Dr: Annemarie Parsons Date: 05/14/17 Location: [facility] Sex: F C Admitted: BMS/12 Lead EKG performed by [facility] ECG Report Interpretation Marked sinus Bradycardia -Intraventricular conduction defect -consider left ventricul ar hypertrophy. -Lateral infarct -age undetermined. - T-abnormality -Possible Inferior and lateral ischemia. ABNORMAL Electronically signed on 05/17/2017 at 18:31 by Jonel Rashid 05/17/17 1834 Date __ Annemarie BLOOD CC: Nia Uriostegui DO Date Dictated: 05/14/171103 Date Transcribed: 05/14/171103 Ultrasound Coordinator: BARBY Signed 09-May-2017 Office Visit Report Result: Comments: See Note; NOTES: [facility] [address] [place] [address] OFFICE VISIT Date of Service: 05/09/17 MR#: [id number] Acct: [id number] Patient: COMFORT OLSON Rep #: [id number] : 1940 Provider: Albert Kerr RN Age/Sex: 76/F Location: [facility] Status: Signed Intake Intake Visit Reasons: EKG 4 wk s/p per INTELLIGENCE SPECIALIST Allergies No Known Allergies Allergy (Verified 05/04 [...] PO DAILY 11/11/16 [History Confirmed 04/19/17] Methscopolamine Indian 5 mg PO BID 11/11/16 [History Confirmed [...] Seaman 09-May-2017 12 Lead EKG performed by [facility] Result: Comments: See Note; NOTES: [facility] [address] [place] [address] 12 Lead EKG performed by [facility] 05/09/17 1110 MR#: [id number] Acct: [id number] Name: COMFORT OLSON Rep #: [id number] : 1940 76 From: Jonel Rashid MD Attending Dr: Albert Kerr RN Status: DEP AMB Ordering Dr: Jonel Rashid MD Date: 05/09/17 Location: [facility] Sex: F C Admitted: BMS/12 Lead EKG performed by BMS ECG Report Interpretation Sinus Rhythm -Nonspecific QRS widening and anterior fascicular block. -Poor R-wave progression -nonspec ific -consider old anterior infarct. -Nonspecific ST depression -Nondiagnostic. ABNORMAL Electronically signed on 05/17/2017 at 18:31 by Jonel Rashid 05/17/17 1834 Date Jonel Rashid MD CC: Nia Uriostegui DO Date Dictated: 05/09/17 1110 Date Transcribed: 05/09/17 1110 Ultrasound Coordinator: CO Signed 09-May-2017 12 Lead EKG performed by BMS Result: Comments: See Note; NOTES: [facility] [address] [place] [address] 12 Lead EKG performed by BMS 05/09/17 1110 MR#: [id number] Acct: [id number] Name: COMFORT OLSON Rep #: [id number] : 1940 76 From: Jonel Rashid MD Attending Dr: Albert Kerr RN Status: DEP AMB Ordering Dr: Jonel Rashid MD Date: 05/09/17 Location: [facility] Sex: F C Admitted: BMS/12 Lead EKG performed by BMS Sinus Rhythm -Nonspecific QRS widening and anterior fascicular block. -Poor -wave progression -nonspecific -consider old anterior infarct. -Nonspecific T d epression -Nondiagnostic. ABNORMAL 05/09/17 1610 <Electronically signed by Jonel Rashid MD> Date Jonel Rashid MD CC: Nia Rice Date Dictated: 05/09/17 1110 Date Transcribed: 05/09/17 111 Ultrasound Coordinator: CO Signed 06-May-2017 12 Lead Electrocardiogram Result: Comments: See Note; NOTES: [facility] Cardiovascular Services [address] [place] [address] 12 Lead EKG 05/04/17 2237 MR#: [id number] Acct: [id number] Name: COMFORT OLSON Rep # : [id number] : 1940 76 From: Jonel Rashid MD [...] ECG Confirmed by JONEL RASHID MD ([id number]), brands editor AMIRA CASTRO ([id number]) on 05/06/2017 1:42:52 PM Referred By: DONY Confirmed By:JONEL RASHID MD 05/06/17 1342 Date Jonel Rashid MD CC: Natalya Napoles MD; Nia Uriostegui DO Signed 06-May-2017 12 Lead Electrocardiogram Result: Comments: See Note; NOTES: [facility] Cardiovascular Services [address] [place] [address] 12 Lead EKG 05/04/17 2045 MR#: [id number] Acct: [id number] Name: COMFORT OLSON Rep # : [id number] : 1940 76 From: Jonel Rashid MD [...] ECG Confirmed by JONEL RASHID MD ([id number]), brands editor AMIRA CASTRO ([id number]) on 05/06/2017 1:08:29 PM Referred By: RICKY NAPOLES Confirmed By:JONEL RASHID MD 05/06/17 1308 Date Jonel Rashid MD CC: Natalya Napoles MD; Nia Uriostegui DO Signed 04-May-2017 Emergency Department Summary Result: Comments: See Note; NOTES: [facility] Medical Records Department [address] [place] [address] Emergency Department Summary 05/04/17 2259 MR#: [id number] Acct: [id number] Name: COMFORT OLSON Rep #: [id number] : 1940 76 From: Natalya Napoles MD [...] ED physician This note was generated with Tk20 dictation software. It may contain incorre ct words, spelling, and punctuation that were not noted in review of the chart prior to signing ED Disposition - Plan for ED Patient: Chief Complaint: Palpitations Referrals: Nia Uriostegui, [[facility] Care Provider] - What to do if you have Problems For any increased pain, shortness of breath, bleeding, nausea or vomiting, chest pain, or any unexpected problems, contact your Primary Care Pro vider. Call Doctors Registry ([phone]) or report to the closest Emergency Room. Call 911 if necessary. 05/04/17 3265 <Electronically signed by Natalya Napoles MD> Date Natalya Napoles MD Cosigner Signature (If Indicated): Date CC: Nia Uriostegui DO 04-May-2017 Discharge Instruction Result: Comments: See Note; NOTES: [facility] Medical Records Department [address] [place] [address] Discharge Instruction 05/04/172339 MR#: [id number] Acct: [id number] Name: Liyah OLSON Rep #: [id number] : 1940 76 From: Natalya Napoles MD [...] your Primary Care Provider. Call [facility] ([phone]) or report to the closest Emergency Room. Call 911 if necessary. 05/04/172340 <Electronically signed by Natalya Napoles MD> Date Natalya mary MD Cosigner Signature (If Indicated): Date CC: Nia Moody [place] 04-May-2017 Chest 1 View (Portable) Result: Comments: See Note; NOTES: [facility] Imaging Services [address] [place] [address] Chest 1 View (Portable) MR#: [id number] Acct: [id number] Name: COMFORT OLSON Rep #: [id number] : 1940 F 76 From: Rafael Perez MD PCP: Nia Uriostegui DO Status: REG ER Study: Chest 1 View (Portable) Date of Exam: 05/04/17 Exam# [id number] Ordering Dr: Natalya Napoles MD STUDY: X [...] CC: Natalya Napoles MD; Nia Uriostegui DO Ultrasound Coordinator: Signed 19-Apr-2017 Emergency Department Summary Result: Comments: See Note; NOTES: [facility] Medical Records Department [address] [place] [address] Emergency Department Summary 04/19/17 1757 MR#: [id number] Acct: [id number] Name: COMFORT OLSON Rep #: [id number] : 1940 76 From: Deisi Ryan MD [...] with RVR This note was generated with Game Face Hockey software. It may contain incorrect words, spelling, [...] blems, contact your Primary Care Provider. Call [facility] ([phone]) or report to the closest Emergency Room. Call 911 if necessary. 04/19/171930 <Electronically signed by Deisi moscoso MD> Date Deisi Ryan MD Cosigner Signature (If Indicated): Date CC: Nia Uriostegui DO 19-Apr-2017 Chest 1 View (Portable) Result: Comments: See Note; NOTES: [facility] Imaging Services [address] [place] [address] Chest 1 View (Portable) MR#: [id number] Acct: [id number] Name: COMFORT OLSON Rep #: [id number] : 1940 F 76 From: Thanh Ambriz MD PCP: Nia Uriostegui DO Status: PRE ER Study: Chest 1 View (Portable) Date of Exam: 04/19/17 Exam# [id number] Ordering Dr: Deisi Ryan MD STUDY: X- [...] CC: Deisi Ryan MD; Nia Uriostegui DO Ultrasound Coordinator: Signed 14-Mar-2017 Cardiology Visit Report Result: Comments: See Note; NOTES: [facility] [address] [place] [address] OFFICE VISIT Date of Service: 03/14/17 MR#: [id number] Acct: [id number] Name: COMFORT OLSON p #: [id number] : 1940 Provider: JOSSELYN Lombardo Age/Sex: 76/F Location: [facility] Status: Signed HPI 3 M FU: Details: [...] less than 30% stenosis. Patient returned to [employer] approximately one week later and showed a [...] Intak e Visit Reasons: 3 M FU Esl Instructor Required: No Accompanied by: None Is patient [...] DAILY 11/11/16 [History Confirmed 02/28/17] M ethscopolamine Indian 5 mg PO BID 11/11/16 [History Confirmed [...] mg PO BID tab 03/14/17 [History Confirmed 02/02/18] Ejection fraction %: 35 to 39 PFS Medical History Other secondary pulmonary hypertension (Chronic) Cardiomyopathy in diseases classifie d elsewhere (Chronic) Other cerebral infarction (Chronic) Paroxysmal atrial fibrillation (Chronic) Atrial enlargement, left (Chronic) Atherosclerotic heart disease of [place] coronary artery without cynthia na pectoris (Chronic) [...] fatigue ENT ENT: Negative for dizziness Car gefofrey Chest Pain: No Palpitations: Positive for No [...] 1. Essential hypertension I10 SEEMA Pan Saurabh lynch's blood pressures on the higher [...] updated BP readings. 3. Atheroscle rosis of [place] coronary artery of [place] heart without angina pectoris I25.10 08/06/2004 CABG x2 VILLAGRAN side to side to second Diagonal and end to side to Anterior Descending artery in Sequential fashion . [facility]: 08/01/2004; 10/15/2011 SEEMA Pan Patient's most recent heart catheterization is noted [...] controlling and aspirin. 5. Mixed hyperlipidemia E78.2 SEEMA Pan Patient is not on any cholesterol lowering me dication. She states this is being monitored by primary care physician and is scheduled for repeat evaluation in the near future. Plan Detail Other Medications New: Discontinued: Additional Comments - Richard Lombardo NP-C Discussed the above patient with Dr. Rashid, [...] to sa ving. Follow Up 6 Months (INTELLIGENCE SPECIALIST) Coding Level of Care Code Off vis,est,level 3 Diagnoses Essential hypertension I10 Hypertension type: essential hypertension Cardiomyopathy in diseases classified elsew here I43 Atherosclerosis of [place] coronary artery of [place] heart without angina pectoris I25.10 [place] vs. transplanted heart: [place] heart Paroxysmal atrial fibrillation I48.0 Mixed hyperlipidemia E7 8.2 Hyperlipidemia type: mixed hyperlipidemia Coding Level of Care Code Off vis,est,level 3 Diagnoses Essential hypertension I10 Hypertension type: essential hypertension Cardiomyopathy in diseases c lassified elsewhere I43 Atherosclerosis of [place] coronary artery of [place] heart without angina pectoris I25.10 [place] vs. transplanted heart: [place] heart Paroxysmal atrial fibrillation I48.0 Mixed hy perlipidemia E78.2 Hyperlipidemia type: mixed hyperlipidemia 03/14/17 1154 <Electronically signed by Richard Lombardo RN CIRCULATING-C> Date Richard Lombardo RN CIRCULATING-C 03/14/17 1527<Electronically signed by Jonel Rashid MD> Cosigner Signature: Date (if applicable) Jonel Rashid MD CC: Nia Uriostegui DO 10-Mar-2017 Echo, Complete w/ Contrast Result: Comments: See Note; NOTES: [facility] Cardiovascular Services [address] [address] Echo Complete W/ Contrast 03/10/17 1008 MR#: [id number] Acct: [id number] Name: COMFORT JONES Rep #: [id number] : 1940 76 From: Jonel Rashid MD Attending Dr: Gay ROSAS,Jonel Status: REG CLI Ordering Dr: Jonel Rashid MD Date: 03/10/17 Location: [facility] Sex: F C Admitted: Reason Fo r [...] 03/10/17 1008 Date Transcr ibed: 03/10/17 1412 Ultrasound Coordinator: Signed 13-Nov-2016 CTA Chest W/WO Contrast Result: Comments: See Note; NOTES: [facility] Imaging Services [address] [place] [address] CTA Chest W/WO Contrast MR#: [id number] Acct: [id number] Name: COMFORT OLSON Rep #: [id number] : 1940 F 75 From: Charly Almendarez DO PCP: Nia Uriostegui DO Status: REG ER Study: CTA Chest W/WO Contrast Date of Exam: 11/13/16 Exam# [id number] Ordering Dr: Emery Allen MD STUDY: CTA [...] CC: Emery Allen MD; Nia Uriostegui DO Ultrasound Coordinator: Signed 11-Nov-2016 Chest 1 View (Portable) Result: Comments: See Note; NOTES: [facility] Imaging Services [address] [place] [address] Chest 1 View (Portable) MR#: [id number] Acct: [id number] Name: COMFORT OLSON Rep #: [id number] : 1940 F 75 From: Jorge Herman MD PCP: Nia Uriostegui DO Status: REG ER Study: Chest 1 View (Portable) Date of Exam: 11/11/16 Exam# [id number] Ordering Dr: Jignesh Tello MD STUDY: X-RA [...] CC: Nia vo DO; Jignesh Tello MD Ultrasound Coordinator: Signed 16-Jan-2016 Chest PA and Lateral Result: Comments: See Note; NOTES: [facility] Imaging Services [address] [place] [address] Verda 4d Chest PA and Lateral MR#: [id number] Acct: [id number] Name: COMFORT OLSON Rep #: [id number] : 1940 F 75 From: John Babcock MD PCP: Balbir Cramer Status: REG CLI Study: Chest PA and Lateral Date of Exam: 01/16/16 Exam# [id number] Ordering Dr: Balbir Cramer STUDY: X-RAY CHEST [...] John Babcock MD at 13:26 EST Tel [phone], Service support , CC: Balbir Cramer Ultrasound Coordinator: Signed 14-Dec-2014 Bilat Scrn Digital AND CAD Result: Comments: See Note; NOTES: [facility] Imaging Services [address] [place] [address] Verdana 4d Bilat Scrn Digital AND CAD MR#: [id number] Acct: [id number] Name: COMFORT OLSON Rep #: [id number] : 1940 F 74 From: John Babcock MD PCP: Maylin Melendez DO Status: REG CLI Study: Bilat Scrn Digital AND CAD Date of Exam: 12/14/14 Exam# [id number] Ordering D r: Maylin Melendez DO MAMMOGRAPHY [...] John Babcock MD at 14:05 EST Tel [phone], Service support [phone], CC: Maylin Melendez DO Ultrasound Coordinator: Signed 14-Dec-2014 Carotid Duplex Ultrasound Result: Comments: See Note; NOTES: [facility] Cardiovascular Services [address] [place] [address] Carotid Duplex Ultrasound 12/12/14 1007 MR#: [id number] Acct: [id number] Name: COMFORT OLSON Rep #: [id number] : 1940 74 From: Darian Anderson MD Attending Dr: Maylin Melendez DO Status: REG CLI Ordering Dr: Maylin Melendez DO Date: 12/12/14 Location: [facility] Sex: F C Admi tted: Rt. Velocities/BP [...] the left vertebral artery. Procedure Carotid Duplex 35496. Exam performed in department. Interpreta tion Summary Mild (<50%) stenosis right extracranial internal carotid. Mild (<50%) stenosis left extracranial internal carotid. Flow within the vertebral arteries is antegrade bilater ally. Ordering Physician: Maylin Melendez Performed By: Sanaz Sheth RVT Electronically si gned by: MD Darian nAderson on 12/14/2014 07:37 AM 12/14/14 0737 Date Darian Anderson MD CC: Maylin Melendez DO Date Dictated: 12/12/14 1007 Date Transcribed: 12/14/14 0737 Ultrasound Coordinator: Signed 25-Apr-2014 Nuclear Stress Test - Chemical Result: Comments: See Note; NOTES: [facility] Imaging Services [address] [place] [address] Nuclear Medicine Report MR#: [id number] Acct: [id number] Name: COMFORT OLSON Rep #: [id number] : 1940 F 73 From: Jonel Rashid MD PCP: Maylin Melendez DO Status: REG CLI Study: Nuclear Stress Test - Chemical Date of Exam: 04/25/14 Exam# [id number] Ordering Dr: Jonel Rashid MD P HARMACOLOGIC [...] CC: Jonel Rashid MD; Maylin Melendez DO Ultrasound Coordinator: CALIX Signed 31-Jan-2014 Spirometry (02667) Comments: Moderate restriction similar to previous Result: 14-Jan-2014 Chest PA and Lateral Result: Comments: See Note; NOTES: [facility] Imaging Services [address] [place] [address] Radiology Report MR#: [id number] Acct: [id number] Name: COMFORT OLSON Rep #: [id number] : 1940 F 73 From: John Babcock MD PCP: Maylin eMlendez DO Status: REG CLI Study: Chest PA and Lateral Date of Exam: 01/14/14 Exam# [id number] Ordering Dr: Sherrie Amor STUDY: X-RAY CH [...] John Babcock MD at 14:58 EST Tel [phone], Service support [phone], RAD/Chest PA and Lateral IMPRESSION: Mild increased markings at the lung bases suggestive of linear atelectasis. Electronica lly Signed: John Babcock MD at 14:58 EST Tel [phone], Service support [phone], CC: Sherrie Amor; Maylin Melendez DO Ultrasound Coordinator: Signed 07-Sep-2013 Knee 4 or More Views Result: Comments: See Note; NOTES: [facility] Imaging Services [address] [place] [address] Radiology Report MR#: [id number] Acct: [id number] Name: COMFORT OLSON Rep #: [id number] : 1940 F 72 From: Yusuf Lopes PCP: Maylin Melendez DO Status: REG CLI Study: Knee 4 or More Views Date of Exam: 09/07/13 Exam# [id number] Ordering Dr: Maylin Melendez DO STUDY: X-RAY [...] Yusuf Lopes MD at 4:00 EDT Tel [phone] , Service support [phone] , CC: Maylin Melendez DO Ultrasound Coordinator: Signed 22-Aug-2013 Carotid Duplex Ultrasound Result: Comments: See Note; NOTES: [facility] Cardiovascular Services [address] [place] [address] Carotid Duplex Ultrasound 08/20/13 0945 MR#: [id number] Acct: [id number] Nam e: COMFORT OLSON Rep #: [id number] : 1940 72 From: Darian Anderson MD [...] the left vertebral artery. Procedure Carotid Duplex 88763. [facility] in [facility]. Interpretation Summary Mild (<50%) stenosis right extracranial internal carotid. Mild (<50%) stenosis left extracranial internal carotid. Flow within the vertebral arteries is antegrade bilaterally. Ordering Physician: Maylin Melendez Performed By: Sanaz Sheth RVT : Maylin Melendez DO Date Dictated: 08/20/13 0945 Date Transcribed: 08/22/13 0848 Ultrasound Coordinator: Signed 09-Jul-2013 Chest PA and Lateral Result: Comments: See Note; NOTES: [facility] Imaging Services [address] [place] [address] Radiology Report MR#: [id number] Acct: [id number] Name: COMFORT OLSON Rep #: [id number] : 1940 F 72 From: Jermaine Khan DO PCP: Maylin Melendez DO Status: REG CLI Study: Chest PA and Lateral Date of Exam: 07/09/13 Exam# [id number] Ordering Dr: Sherrie Amor STUDY: X-RAY CHEST [...] Jermaine Khan DO at 22:50 EDT Tel [phone] , Service support [phone], CC: Sherrie Amor; Maylin Melendez DO Ultrasound Coordinator: Signed 08-Jan-2013 PT Discharge Summary Result: Comments: See Note; NOTES: [facility] Physical Therapy Health[address] [place] [address] Fax REHABILITATION SERVICES DISCHARGE SUMMARY MR#: [id number] Acct: [id number] Name: COMFORT OLSON Rep #: [id number] : 1940 72 From: Farrukh Hull Referring [...] has. Farrukh Hull, PT T: NTS JOB: [id number] <Electronically signed by Farrukh Hull > 01/08/13 0648 CC: * Signed 18-Dec-2012 Inital Evaluation - PT Result: Comments: See Note; NOTES: [facility] Physical Therapy Healthpoint 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 No obvious nystagmus. Right- sided Hallpike [facility] Anthony test is positive for dizziness of approximately [...] therapy. Farrukh Hull, PT T: NTS JOB: [id number] <Electronically signed by Farrukh Hull > 12/18/12 1151 CC: Signed For Medicare only, by signing this I certify the plan of care. 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 Status: Active Smoking Status Name Dates Details Never smoker Vital Signs Date Test Result Details :36 Temperature 97.8 f Comments: Method: Temporal [...] kg/m2 Body Surface Area Calculated 1.93 m2 04-Zbu-190105:11 Pulse 70 /min Comments: Pattern: Regular Respiration [...] kg/m2 Body Surface Area Calculated 2.01 m2 68-Spx-643010:19 Temperature 96.1 f Pulse 76 /min Comments: [...] kg/m2 Body Surface Area Calculated 2 m2 55-Xqz-163510:11 Comments: Recheck BP 158/82 Temperature 100 f [...] Details :39 Basic Metabolic Profile (BMP) Comments: [facility] [address] [place], [place], [address] GAP 9 (Normal) Range: 5-15 CO2 26.0 [...] A.D.A. criteria.Please note revised GLUCOSE reference range latzpqhox48/02/2018. 6-Mbn-511282:42 HgA1C , Office (29565) HgA1C , Office 7.1 % (Normal) Range: 4.6 - 7.1 :42 Blood Glucose , Office (43693) Blood Glucose , Office 135 (Normal) :55 Basic Metabolic Profile (BMP) Comments: [facility] [address] [place], [address] GAP 14 (Normal) Range: 5-15 CO2 23.0 [...] A.D.A. criteria.Please note revised GLUCOSE reference range dtbfcmrug59/02/2018. :55 CBC W/Diff, Automated Comments: [facility] [address] [place], [place], [address] Absolute Lymph 2.08 {X10_3/ul} (Normal) Range: 0.83-4.51 [...] 4.2-5.4 WBC 8.7 K/mm3 (Normal) Range: 4.4-11.0 03-Cpl-13274:55 Troponin-I Comments: [facility] [address] [place], [place], [address] TROPONIN-I < 0.015 ng/mL (Normal) Comments: TROPONIN-I EXPECTED VALUES <0.045 Negative 0.045 - 0.590 Consistent with Cardiac Damage > OR = 0.600 Critical Value Not every elevated troponin is indicative of TN. T hesevalues should be used with clinical judgement in examiningthe patient's clinical picture for diagnosis. To establisha diagnosis of TN versus myocardial injury, there must be ademonstrated rise and/ or fall in the troponin values, inaddition to ischemic symptoms, EKG changes, new regionalwall motion abnormality, and/or angiographical evidence. PLEASE NOTE: REFERENCE RANGES EDITED 06/23/1729-Sep-20179:05 Basic Metabolic Profile (BMP) Comments: [facility] [address] [place], [place], [address] GAP 8 (Normal) Range: 5-15 CO2 28.0 [...] A.D.A. criteria.Please note revised GLUCOSE reference range fzufkqofz39/02/2018. 95-Efx-90314:05 CBC W/Diff, Automated Comments: [facility] [address] [place], [place], [address] Absolute Lymph 2.24 {X10_3/ul} (Normal) Range: 0.83-4.51 [...] 4.2-5.4 WBC 8.3 K/mm3 (Normal) Range: 4.4-11.0 51-Kcn-19343:05 Troponin-I Comments: [facility] [address] [place], [place], [address] TROPONIN-I 0.020 ng/mL (Normal) Comments: TROPONIN-I EXPECTED VALUES <0.045 Negative 0.045 - 0.590 Consistent with Cardiac Damage > OR = 0.600 Critical Value Not every elevated troponin is indicative of TN. T hesevalues should be used with clinical judgement in examiningthe patient's clinical picture for diagnosis. To establisha diagnosis of TN versus myocardial injury, there must be ademonstrated rise and/ or fall in the troponin values, inaddition to ischemic symptoms, EKG changes, new regionalwall motion abnormality, and/or angiographical evidence. PLEASE NOTE: REFERENCE RANGES EDITED 06/23/1727-Aug-201732-Dpr-864540:18 HgA1C , Office (50573) HgA1C , Office 7.6 % (Abnormal) Range: 4.6 - 7.1 82-Siv-347601:18 Blood Glucose , Office (94320) Blood Glucose , Office 142 (Normal) :51 Basic Metabolic Profile (BMP) Comments: [facility] [address] [place], [place], [address] GAP 9 (Normal) Range: 5-15 CO2 25.0 [...] criteria.Please note revised GLUCOSE reference range /02/2018. :51 CBC W/Diff, Automated Comments: [facility] [address] [place], [place], [address] Absolute Lymph 2.43 {X10_3/ul} (Normal) Range: 0.83-4.51 [...] 4.2-5.4 WBC 9.6 K/mm3 (Normal) Range: 4.4-11.0 59-Wmy-18789:51 Troponin-I Comments: [facility] [address] [place], [place], [address] TROPONIN-I < 0.015 ng/mL (Normal) Comments: TROPONIN-I EXPECTED VALUES <0.045 Negative 0.045 - 0.590 Consistent with Cardiac Damage > OR = 0.600 Critical Value Not every elevated troponin is indicative of TN. T hesevalues should be used with clinical judgement in examiningthe patient's clinical picture for diagnosis. To establisha diagnosis of TN versus myocardial injury, there must be ademonstrated rise and/ or fall in the troponin values, inaddition to ischemic symptoms, EKG changes, new regionalwall motion abnormality, and/or angiographical evidence. PLEASE NOTE: REFERENCE RANGES EDITED 06/23/1728-May-201717-Nir-475561:47 CALCIFEDIOL (02184) Comments: PATIENT NOT FASTINGPERFORMED BY: [facility] Ikxfmb6321 [facility] [id number] Vitamin D, 25-Hydroxy 20.2 ng/mL (Abnormal) Range: [...] Society clinical practice guideline. JCEM. 2010; 96(7):1911-30. 37-Rxt-515915:47 VITAMIN B-12 (CYANOCOBALAMIN) Comments: PATIENT NOT FASTINGPERFORMED BY: [facility] CountyHbzweo9589 [facility] [id number] (14171) Vitamin B12 311 pg/mL (Normal) Range: 232-1245 26-Rzx-847540:26 HgA1C , Office (87784) HgA1C , Office 7.3 % (Abnormal) Range: 4.6 - 7.1 48-Vku-665431:26 Blood Glucose , Office (42343) Blood Glucose , Office 136 (Normal) 93-Djt-205308:56 Basic Metabolic Profile (BMP) Comments: 'TROP' Serial specimen #1, #2, #3, or #4: [facility] [address]mj[address] [place], [place], [address] GAP 11 (Normal) Range: 5-15 CO2 27.0 [...] criteria.Please note revised GLUCOSE reference range /02/2018. 74-Van-664762:56 CBC W/Diff, Automated Comments: [facility] [address] [place], [place], [address] Absolute Lymph 3.30 {X10_3/ul} (Normal) Range: 0.83-4.51 [...] 4.2-5.4 WBC 9.3 K/mm3 (Normal) Range: 4.4-11.0 25-Iiy-063469:56 Troponin-I Comments: 'TROP' Serial specimen #1, #2, #3, or #4: [address] [place] [address] [address] [place], [place], [address] TROPONIN-I < 0.02 ng/mL (Normal) Comments: TROPONIN-I EXPECTED VALUES <0.05 NEGATIVE 0.06 - 0.59 AT RISK OF TN > OR = 0.60 SUGGEST TN 43-Vbn-883993:33 Basic Metabolic Profile (BMP) Comments: 'TROP' Serial specimen #1, #2, #3, or #4: [address] [place] [address] [address] [place], [place], [address] GAP 10 (Normal) Range: 5-15 CO2 25.0 [...] criteria.Please note revised GLUCOSE reference range /02/2018. 40-Vdn-444448:33 CBC W/Diff, Automated Comments: [facility] [address] [place], [place], [address] Absolute Lymph 3.48 {X10_3/ul} (Normal) Range: 0.83-4.51 [...] 4.2-5.4 WBC 10.4 K/mm3 (Normal) Range: 4.4-11.0 99-Bwh-206891:33 Troponin-I Comments: 'TROP' Serial specimen #1, #2, #3, or #4: [address] [place] [address] [address] [place], [place], [address] TROPONIN-I 0.14 ng/mL (Abnormal) Comments: TROPONIN-I EXPECTED VALUES <0.05 NEGATIVE 0.06 - 0.59 AT RISK OF TN > OR = 0.60 SUGGEST TN 6-Xfp-455137:16 HgA1C , Office (23982) HgA1C , Office 7.9 % (Abnormal) Range: 4.6 - 7.1 6-Dhv-218538:15 Blood Glucose , Office (64603) Blood Glucose , Office 166 (Normal) 8-Glh-067951:25 Basic Metabolic Profile (BMP) Comments: Order Date: 12/13/16Order Info: 0667-1 - *BMPComments: Reason:[facility] [address] [place], [place], [address] GAP 9 (Normal) Range: 5-15 CO2 29.0 [...] 200 mg/dLsuggests DIABETES MELLITUS per A.D.A. criteria. 18-Wta-955662:27 Basic Metabolic Profile (BMP) Comments: Order Date: 11/19/16Order Info: 0667-1 - *BMPComments: Reason:[facility] [address] [place], [place], [address] GAP 8 (Normal) Range: 5-15 CO2 27.0 [...] 200 mg/dLsuggests DIABETES MELLITUS per A.D.A. criteria. 78-Asb-546343:27 Partial Thromboplast Time Comments: Order Date: 11/19/16Order Info: 6301-6 - *PT/INROrder Info: 07737-0 - *PTT-[facility]Gen[facility] [address]fz[address] [place], [place], [address]) PTT 29.4 s (Normal) Range: 24.1-36.2 :27 Prothrombin Time w/INR Comments: Order Date: 11/19/16Order Info: 6301-6 - *PT/INROrder Info: 29413-0 - *PTT-[facility]oplast[facility]WGen[facility] [address]bxvt[address] [place], [address](625) INR 1.1 (Normal) PROTIME 13.4 s (Normal) Range: 11.7-14.9 :05 Basic Metabolic Profile (BMP) Comments: 'TROP' Serial specimen #1, #2, #3, or #4: 1[facility] [address] [place], [place], [address] GAP 10 (Normal) Range: 5-15 CO2 25.0 [...] A.D.A. criteria. :05 BNP,B-Type NATRIURETIC PEPTIDE Comments: [facility] [address] [place], [address] B-TYPE ANDREW PEP 316.0 pg/mL (Abnormal) Range: 0-100 :05 CBC W/Diff, Automated Comments: [facility] [address] [place], [place], [address] Absolute Lymph 1.26 {X10_3/ul} (Normal) Range: 0.83-4.51 [...] 4.2-5.4 WBC 9.7 K/mm3 (Normal) Range: 4.4-11.0 :05 Troponin-I Comments: 'TROP' Serial specimen #1, #2, #3, or #4: [address] [place] [address] [address] [place], [address] TROPONIN-I 0.15 ng/mL (Abnormal) Comments: TROPONIN-I EXPECTED VALUES <0.05 NEGATIVE 0.06 - 0.59 AT RISK OF TN > OR = 0.60 SUGGEST TN 3-Dmq-856653:10 Basic Metabolic Profile (BMP) Comments: 'TROP' Serial specimen #1, #2, #3, or #4: [address] [place] [address] [address] [place], [place], [address] GAP 13 (Normal) Range: 5-15 CO2 22.0 [...] A.D.A. criteria. :10 CBC W/Diff, Automated Comments: [facility] [address] [place], [place], [address] Absolute Lymph 2.88 {X10_3/ul} (Normal) Range: 0.83-4.51 [...] #2, #3, or #4: 1[facility] [address] [place], [place], [address] TSH 1.29 {uIU/mL} (Normal) Range: 0.358-3.74 :10 Troponin-I Comments: 'TROP' Serial specimen #1, #2, #3, or #4: [address] [place] [address] [address] [place], [place], [address] TROPONIN-I < 0.02 ng/mL (Normal) Comments: TROPONIN-I EXPECTED VALUES <0.05 NEGATIVE 0.06 - 0.59 AT RISK OF TN > OR = 0.60 SUGGEST TN :58 HgA1C , Office (40059) HgA1C , Office 7.6 % (Abnormal) Range: 4.6 - 7.1 :58 Blood Glucose , Office (19732) Blood Glucose , Office 159 (Normal) :50 CBC W/Diff, Automated Comments: [facility] [address] [place], [place], [address] Absolute Lymph 1.46 {X10_3/ul} (Normal) Range: 0.83-4.51 [...] 4.2-5.4 WBC 7.3 K/mm3 (Normal) Range: 4.4-11.0 62-Ewh-306300:50 CCP IgG Antibodies Comments: [facility] (refer to report for specific site)refer to report for address and phone number ANTI-CCP 677549 4 {units} (Normal) Range: 0-19 Comments: Negative <20 Weak positive 20 - 39 Moderate positive 40 - 59 Strong positive >59 76-Mew-775305:50 Comprehensive Metabolic Profil Comments: [facility] [address] [place], [place], [address] GAP 9 (Normal) Range: 5-15 CO2 26.0 [...] 126 mg/dLsuggests DIABETES MELLITUS per A.D.A. criteria. 21-Ofb-520435:50 CRP Comments: [facility] [address] [facility] [place], [place], [address] C-REACTIVE PROT 8.89 mg/L (Abnormal) Range: 0.0-3.0 Comments: C-Reactive Protein (CRP) provides useful information for thediagnosis, therapy and monitoring of inflammatory processesand associated diseases. For the evaluation of Relative Riskfor Cardiovascular Dise ase, a High Sensitivity CRP (HSCRP)should be ordered. 12-Fov-275957:50 Erythrocyte Sed Rate Comments: [facility] [address] [place], [place], [address] SED RATE 27 mm/h (Normal) Range: 0-30 34-Owp-440113:50 Hep B Surface Antibodies Comments: [facility] (refer to report for specific site)refer to report for address and phone number Hep B Booker AB Non Reactive (Normal) Comments: Non Reactive: Inconsistent with immunity, less than 10 mIU/mL Reactive: Consistent with immunity, greater than 9.9 mIU/ mL 10-Pdi-275492:50 Hepatitis B Surface Ag Comments: [facility] (refer to report for specific site)refer to report for address and phone number HB SURF AG Negative (Normal) Comments: Performed at: - [facility] [id number] Director: Christopher Sullivan PhD, Phone: [phone] at: - [facility] [address] [id number] Director: Loco Ivey MD, Phone: [phone] 39-Gux-715643:50 Hepatitis C Antibodies Comments: [facility] (refer to report for specific site)refer to report for address and phone number HEP C AB <0.1 {s/co_ratio} (Normal) Range: 0.0-0.9 Comments: Negative: < 0.8 Indeterminate: 0.8 - 0.9 Positive: > 0.9 The CDC recommends that a positive HCV antibody result be followed up with a HCV Nucleic Acid Amplification test (966281). :50 Rheumatoid Factor Comments: [facility] [address] [place], [place], [address] RHEUMATOID FAC < 10.0 {IU/mL} (Normal) :50 Uric Acid Comments: [facility] [address] [facility] [place], [place], [address] URIC 7.1 mg/dL (Abnormal) Range: 2.6-6.0 Comments: The drugs N-Acetylcysteine and Metamizole may falselydepress this assay. :03 Unable to Void SPRCS (Normal) Comments: PATIENT WAS FASTINGPERFORMED BY: [facility] [facility] [employer] [facility] [id number] Comments: The patient was not able to render a urine sample and has beeninstructed to return for a urine collection at their earliestconvenience. The urine testing that you have requested hasbeen deleted from th is report. When the patient returns andprovides a urine specimen, the urine testing will be performedand separately reported. :03 VITAMIN B-12 (CYANOCOBALAMIN) Comments: PATIENT WAS FASTINGPERFORMED BY: [employer] [facility] Hjtgig2069 [facility] [id number] (00520) Vitamin B12 264 pg/mL (Normal) Range: 211-946 :03 METABOLIC PANEL, COMPREHENSIVE Comments: PATIENT WAS FASTINGPERFORMED BY: [employer] [facility] [id number] (36767) ALT (SGPT) 7 [iU]/L (Normal) Range: 0-32 [...] mg/dL (Abnormal) Range: 65-99 :03 LIPID PANEL (73013) Comments: PATIENT WAS FASTINGPERFORMED BY: [facility] [id number] VLDL Cholesterol Jyoti VLDLCH mg/dL (Normal) Range: 5-40 Comments: The calculation for the VLDL cholesterol is not valid whentriglyceride level is >400 mg/dL.Triglyceride result indicated is too high for an accurate LDLcholesterol estimation. HDL Cholesterol 26 mg/dL (Abnormal) Triglycerides 542 mg/dL (Abnormal) Range: 0-149 Cholesterol, Total 183 mg/dL (Normal) Range: 100-199 :03 CBC W/AUTO DIFF WBC (40119) Comments: PATIENT WAS FASTINGPERFORMED BY: [employer] [facility] [id number] Immature Grans (Abs) 0.0 {x10E3/uL} (Normal) Range: [...] (Normal) Range: 3.4-10.8 :48 HgA1C , Office (92394) HgA1C , Office 8.0 % (Abnormal) Range: 4.6 - 7.1 :48 Blood Glucose , Office (80713) Blood Glucose , Office 166 (Normal) :06 CALCIFEDIOL (01397) Comments: PATIENT NOT FASTINGPERFORMED BY: [facility] CountySbslwe7547 [facility] [id number] Vitamin D, 25-Hydroxy 51.1 ng/mL (Normal) Range: [...] Society clinical practice guideline. JCEM. 2010; 96(7):1911-30. 8-Glk-085730:06 CBC, PLATELETS & AUT DIFF Comments: PATIENT NOT FASTINGPERFORMED BY: LabCoLourdes [facility] of Burlington CountyTmgzrp5662 [facility] [id number] (69089) Immature Grans (Abs) 0.0 {x10E3/uL} (Normal) Range: [...] (Normal) Range: 3.4-10.8 :36 HgA1C , Office (32014) HgA1C , Office 8.0 % (Abnormal) Range: 4.6 - 7.1 :36 Blood Glucose , Office (82287) Blood Glucose , Office 155 (Normal) :39 METABOLIC PANEL, COMPREHENSIVE Comments: PATIENT WAS FASTINGPERFORMED BY: LabCoLourdes [facility] of Burlington CountyZvimbe5472 [facility] [id number] (69895) ALT (SGPT) 6 [iU]/L (Normal) Range: 0-32 [...] mg/dL (Abnormal) Range: 65-99 :39 LIPID PANEL (11546) Comments: PATIENT WAS FASTINGPERFORMED BY: Arkeo70 [facility] [id number] LDL/HDL Ratio 3.6 {ratio_units} (Abnormal) Range: 0.0-3.2 Comments: LDL/HDL Ratio Men Women 1/2 Avg.Risk 1.0 1.5 Av g.Risk 3.6 3.2 2X Avg.Risk 6.2 5.0 3X Avg.Risk 8.0 6.1 LDL Cholesterol Calc 104 mg/dL (Abnormal) Range: 0-99 VLDL Cholesterol Jyoti 72 mg/dL (Abnormal) Range: 5-40 HDL Cholesterol 29 mg/dL (Abnormal) Triglycerides 359 mg/dL (Abnormal) Range: 0-149 Cholesterol, Total 205 mg/dL (Abnormal) Range: 100-199 50-Fag-104825:49 Blood Glucose , Office (65020) Blood Glucose , Office 159 (Normal) 64-Aaj-817739:49 HgA1C , Office (61322) HgA1C , Office 8.1 % (Abnormal) Range: 4.6 - 7.1 63-Byy-999692:03 VITAMIN B-12 (CYANOCOBALAMIN) Comments: PATIENT WAS FASTINGPERFORMED BY: [facility]6370 [facility] [id number] (09445) Vitamin B12 319 pg/mL (Normal) Range: 211-946 23-Cld-914652:03 LIPID PANEL (41251) Comments: PATIENT WAS FASTINGPERFORMED BY: [employer]70 [facility] [id number] VLDL Cholesterol Jyoti VLDLCH mg/dL (Normal) Range: [...] Cholesterol, Total 192 mg/dL (Normal) Range: 100-199 67-Hdw-485152:03 Vitamin D Hydroxy (83867) Comments: PATIENT WAS FASTINGPERFORMED BY: [facility] Hfbjvg4879 [facility] [id number] Vitamin D, 25-Hydroxy 21.1 ng/mL (Abnormal) Range: [...] 1911-30.; ADDENDA: non-emergent till apt next week 25-Ejc-596522:03 MICROALBUMIN: CREATININE RATIO Comments: PATIENT WAS FASTINGPERFORMED BY: ZenedyLourdes Medical Center of Burlington CountyAifjlx3629 [facility] [id number] (31229) AND (99355) Microalb/Creat Ratio 26.1 {mg/g_creat} (Normal) Range: 0.0-30.0 Microalbumin, Urine 20.0 ug/mL (Normal) Creatinine, Urine 76.5 mg/dL (Normal) 70-Txd-601245:03 CBC W/AUTO DIFF WBC Comments: PATIENT WAS FASTINGPERFORMED BY: [facility]6370 [facility] [id number] Information: [id number] (17508) Immature Grans (Abs) 0.0 {x10E3/uL} (Normal) Range: [...] 3.77-5.28 WBC 8.1 {x10E3/uL} (Normal) Range: 3.4-10.8 22-Uok-720707:03 METABOLIC PANEL, COMPREHENSIVE Comments: PATIENT WAS FASTINGPERFORMED BY: LabCo Ydwdcy3974 [facility] [id number] (64058) ALT (SGPT) 7 [iU]/L (Normal) Range: 0-32 [...] (Abnormal) Range: 65-99 :53 Vitamin D Hydroxy (83386) Comments: PATIENT WAS FASTINGPERFORMED BY: [employer]6370 [facility]UNC [facility] [id number] Vitamin D, 25-Hydroxy 25.5 ng/mL (Abnormal) Range: [...] guideline. JCEM. 2010; 96(7):1911-30. :53 LIPID PANEL (24198) Comments: PATIENT WAS FASTINGPERFORMED BY: [facility] LabCoRedeemr Afwkjb7439 [facility] [id number] LDL/HDL Ratio 3.7 {ratio_units} (Abnormal) Range: 0.0-3.2 [...] PANEL, COMPREHENSIVE Comments: PATIENT WAS FASTINGPERFORMED BY: LabCoLour[facility] Center of Burlington CountyZrdxcb9514 [facility] [id number] (14710) ALT (SGPT) 5 [iU]/L (Normal) Range: 0-32 [...] mg/dL (Abnormal) Range: 65-99 :34 HGB A1C (95468) Comments: PATIENT WAS FASTINGPERFORMED BY: [facility]6370 [facility] [id number] Hemoglobin A1c 8.9 % (Abnormal) Range: 4.8-5.6 Comments: . Pre-diabetes: 5.7 - 6.4 Diabetes: >6.4 Glycemic control for adults with diabetes: <7.0 :11 VITAMIN B-12 (CYANOCOBALAMIN) Comments: B12lot:5200exp:06/26site:lt deltroute:Romeose:chilo Camargo; PATIENT WAS FASTINGPERFORMED BY: Zenedy Wrapvz8703 [facility] [id number] (29124) Vitamin B12 301 pg/mL (Normal) Range: 211-946 :11 Vitamin D Hydroxy (79444) Comments: PATIENT WAS FASTINGPERFORMED BY: Zenedy Pxmiyy5686 [facility] [id number] Vitamin D, 25-Hydroxy 20.3 ng/mL (Abnormal) Range: [...] METABOLIC PANEL, Comments: PATIENT WAS FASTINGPERFORMED BY: Modern Mast70 [facility]bionixUNC [facility] [id number] Information: [id number] COMPREHENSIVE (13135) ALT (SGPT) 6 [iU]/L (Normal) Range: 0-32 [...] mg/dL (Abnormal) Range: 65-99 :11 LIPID PANEL (74124) Comments: PATIENT WAS FASTINGPERFORMED BY: Zenedy Xhvwuu1185 [facility] [id number]; will review on 07/04 LDL/HDL Ratio 4.0 [...] mg/dL (Abnormal) Range: 100-199 :11 HGB A1C (69784) Comments: PATIENT WAS FASTINGPERFORMED BY: Zenedy Zeuieu5058 [facility] [id number] Hemoglobin A1c 8.5 % (Abnormal) Range: 4.8-5.6 Comments: . Pre-diabetes: 5.7 - 6.4 Diabetes: >6.4 Glycemic control for adults with diabetes: <7.0 :16 Vitamin D Hydroxy (75276) Comments: PATIENT WAS FASTINGPERFORMED BY: Zenedy Pnysxk3140 [facility] [id number] Vitamin D, 25-Hydroxy 21.3 ng/mL (Abnormal) Range: [...] B-12 (CYANOCOBALAMIN) Comments: PATIENT WAS FASTINGPERFORMED BY: [facility]6370 [facility] [id number] (34973) Vitamin B12 283 pg/mL (Normal) Range: 211-946 :16 CBC W/AUTO DIFF WBC Comments: PATIENT WAS FASTINGPERFORMED BY: [facility]6370 [facility] [id number] Information: [id number] (27687) Immature Grans (Abs) 0.0 {x10E3/uL} (Normal) Range: [...] {x10E3/uL} (Normal) Range: 3.4-10.8 :16 LIPID PANEL (36888) Comments: PATIENT WAS FASTINGPERFORMED BY: Zenedy Gtdzfl1148 [facility] [id number] VLDL Cholesterol Jyoti VLDLCH mg/dL (Normal) Range: [...] Cholesterol, Total 168 mg/dL (Normal) Range: 100-199 73-Inl-313090:49 HGB A1C (96366) Comments: PATIENT NOT FASTINGPERFORMED BY: Zenedy Aaebgw1619 [facility] [id number] Information: [id number] Hemoglobin A1c 8.1 % (Abnormal) Range: 4.8-5.6 Comments: . Pre-diabetes: 5.7 - 6.4 Diabetes: >6.4 Glycemic control for adults with diabetes: <7.0 :30 VITAMIN B-12 (CYANOCOBALAMIN) Comments: PATIENT WAS FASTINGPERFORMED BY: ZenedyLourdes Medical Center of Burlington CountyRcikwe6629 [facility] [id number] (72940) Vitamin B12 325 pg/mL (Normal) Range: 211-946 71-Bki-32796:30 CBC (AUTO) (94977) Comments: PATIENT WAS FASTINGPERFORMED BY: [facility]Core[facility]6370 [facility] [id number] Platelets 309 {x10E3/uL} (Normal) Range: 150-379 RDW 14.8 % (Normal) Range: 12.3-15.4 MCHC 31.1 g/dL (Abnormal) Range: 31.5-35.7 MCH 25.6 pg (Abnormal) Range: 26.6-33.0 MCV 82 fL (Normal) Range: 79-97 Hematocrit 39.2 % (Normal) Range: 34.0-46.6 Hemoglobin 12.2 g/dL (Normal) Range: 11.1-15.9 RBC 4.77 {x10E6/uL} (Normal) Range: 3.77-5.28 WBC 10.9 {x10E3/uL} (Abnormal) Range: 3.4-10.8 :30 Vitamin D Hydroxy (40308) Comments: PATIENT WAS FASTINGPERFORMED BY: [employer]70 [facility] [id number] Vitamin D, 25-Hydroxy 19.9 ng/mL (Abnormal) Range: [...] non-emergent till tomorrows apt :30 LIPID PANEL (53109) Comments: PATIENT WAS FASTINGPERFORMED BY: [employer]6370 [facility] HospitalPhynd Technologies, IncUNC Health Wayne [id number] VLDL Cholesterol Jyoti VLDLCH mg/dL (Normal) Range: [...] CREATININE RATIO Comments: PATIENT WAS FASTINGPERFORMED BY: [employer]70 [facility] [id number] (19060) AND (07236) Microalb/Creat Ratio 190.8 {mg/g_creat} (Abnormal) Range: 0.0-30.0 Microalbumin, Urine 66.6 ug/mL (Abnormal) Range: 0.0-17.0 Creatinine, Urine 34.9 mg/dL (Normal) Range: 15.0-278.0 :30 METABOLIC PANEL, Comments: PATIENT WAS FASTINGPERFORMED BY: [facility] Nkguzq1430 [facility] [id number] Information: [id number] COMPREHENSIVE (33752) ALT (SGPT) 6 [iU]/L (Normal) Range: 0-32 [...] (Abnormal) Range: 65-99 :59 Vitamin D Hydroxy (55470) Comments: PATIENT NOT FASTINGPERFORMED BY: [facility] Aaxtux2360 [facility] [place] [id number]; apt. 10-[address]-14 Vitamin D, 25-Hydroxy 21.4 ng/mL (Abnormal) Range: 30.0-100.0 Comments: Vitamin D deficiency has been defined by the [place] [facility] and an Endocrine Society practice guideline [...] guideline. JCEM. 2010; 96(7):1911-30. :59 LIPID PANEL (01229) Comments: PATIENT NOT FASTINGPERFORMED BY: [facility] Arrrze1460 [facility] [id number] VLDL Cholesterol Jyoti VLDLCH mg/dL (Normal) Range: [...] B-12 (CYANOCOBALAMIN) Comments: PATIENT NOT FASTINGPERFORMED BY: [facility] Avoshb9823 [facility] Centerin [place] [id number] (63108) Vitamin B12 500 pg/mL (Normal) Range: 211-946 :59 CBC W/AUTO DIFF WBC Comments: PATIENT NOT FASTINGPERFORMED BY: [facility] Vssyvt6702 [facility] [id number] Information: [id number] (68457) Immature Grans (Abs) 0.0 {x10E3/uL} (Normal) Range: [...] Comments: PATIENT NOT FASTINGPERFORMED BY: BELKYS [facility] Vsjjvw0082 [facility] [id number] (21074) ALT (SGPT) 6 [iU]/L (Normal) Range: 0-32 [...] Range: 65-99 :38 Blood Glucose , Office (68343) Blood Glucose , Office 198 (Normal) :38 HgA1C , Office (37845) HgA1C , Office 9.1 % (Abnormal) Range: 4.6 - 7.1 :40 Allergens, Zone 8 Comments: Test(s) 085889-O637-CtK Cockroach, Egyptian; 278354-J963-PoI Geary, White; 304244-G858-VsP Sweet Gumwere developed and had performance characteristicsdetermined by [employer]. These tests have not been c leared orapproved by the U.S. Food and Drug Administration. The FDAhas determined that such clearance or approval is notnecessary. These tests are used for clinical purposes.These should not be regarded as investigational or forresearch.Test performed at:[facility] Zwcpgisdkj[address] [place], [place] [address] ; handled by jennifer VANG COMMENT Comment [...] NETTLE <0.10 kU/L (Normal) Comments: Performed at: [address] [id number] Director: Loco Ivey MD, Phone: [phone] SHEEP SORREL <0.10 kU/L (Normal) PIGWEED, ROUGH [...] kU/L (Normal) D PTERONYSSINUS <0.10 kU/L (Normal) 07-Rfl-32305:40 Immunoglobulin E Comments: Test performed at:[facility] Gquwfwpmae03[address] [place] [address] IMMUNO E 53 {IU/mL} (Normal) Range: 0-100 Comments: Performed at: [facility] Ali[address] [id number] Director: Christopher Sullivan PhD, Phone: [phone]; ADDENDA: handled by jennifer 60-Yht-382684:26 HgA1C , Office (31390) HgA1C , Office 9.6 % (Abnormal) Range: 4.6 - 7.1 7-Fwh-233413:31 BNP,B-Type NATRIURETIC PEPTIDE Comments: Test performed at:[facility] Ybuncedttv6308 [place], [place] [address] B-TYPE ANDREW PEP 58.8 pg/mL (Normal) Range: 0-100 12-Vhe-868302:04 IRON BINDING CAPACITY (TIBC) Comments: PERFORMED BY: ZenedyLourdes Medical Center of Burlington CountyLgfnsw6[address] [place] [address] [id number] (80568) Iron Saturation 11 % (Abnormal) Range: 15-55 Iron, Serum 47 ug/dL (Normal) Range: 35-155 UIBC 362 ug/dL (Normal) Range: 150-375 Iron Bind.Cap.(TIBC) 409 ug/dL (Normal) Range: 250-450 84-Kcl-386335:04 FERRITIN (47907) Comments: PERFORMED BY: ZenedyLourdes Medical Center of Burlington CountyAdjdhx59[address] [place] [address] [id number] Ferritin, Serum 32 ng/mL (Normal) Range: 15-150 28-Sww-924585:04 VITAMIN B-12 (CYANOCOBALAMIN) Comments: PERFORMED BY: Zenedy Mtjleq1666 [facility] [id number] (89442) Vitamin B12 304 pg/mL (Normal) Range: 211-946 56-Jns-310320:04 Vitamin D Hydroxy (18096) Comments: PERFORMED BY: Zenedy Mbkcje8182 [facility] [id number] Vitamin D, 25-Hydroxy 17.5 ng/mL (Abnormal) Range: [...] Society clinical practice guideline. JCEM. 2010; 96(7):1911-30. 91-Dlt-404725:04 LIPID PANEL (25956) Comments: PERFORMED BY: [employer] [facility] [id number] VLDL Cholesterol Jyoti VLDLCH mg/dL (Normal) Range: [...] Cholesterol, Total 166 mg/dL (Normal) Range: 100-199 04-Msd-859797:04 CBC W/AUTO DIFF WBC (70590) Comments: PERFORMED BY: Zenedy Qllufo7490 [facility] [id number] Immature Grans (Abs) 0.0 {x10E3/uL} (Normal) Range: [...] 3.77-5.28 WBC 7.3 {x10E3/uL} (Normal) Range: 3.4-10.8 32-Cpq-377625:04 METABOLIC PANEL, COMPREHENSIVE Comments: PERFORMED BY: LabCoLourdes Medical Center of Burlington CountyNyzjxh5180 [facility] [id number] (96788) ALT (SGPT) 5 [iU]/L (Normal) Range: 0-32 [...] Glucose, Serum 279 mg/dL (Abnormal) Range: 65-99 02-Fzd-985263:18 HgA1C , Office (66500) HgA1C , Office 8.3 % (Abnormal) Range: 4.6 - 7.1 53-Toq-638999:12 Rapid Flu (74738 x 2) Influenza A Ag negative (Normal) 87-Jyl-713683:43 BNTP (03146) Comments: PATIENT NOT FASTINGPERFORMED BY: LabCoLourdes [facility] Center of Burlington CountyJjnzdv0577 [facility] [id number] Information: [id number], [id number] B-Type Natriuretic Peptide 67.8 pg/mL (Normal) Range: 0.0-100.0 2-Qgp-788686:12 CBCD ALC 1.70 {X10_3/ul} (Normal) Range: 0.83-4.51 [...] A.D.A. criteria. :14 Blood Glucose , Office (05573) Blood Glucose , Office 112 (Normal) 89-Nip-107602:14 HgA1C , Office (43289) HgA1C , Office 7.3 % (Abnormal) Range: 4.6 - 7.1 59-Ohf-633988:45 WESTON Negative (Normal) Comments: Performed at: - LabCo[address] [id number] Director: Nick Cali PhD, Phone: [phone] 41-Hnx-797491:45 CBCD ALC 1.65 {X10_3/ul} (Normal) Range: 0.83-4.51 [...] 4.2-5.4 WBC 7.5 K/mm3 (Normal) Range: 4.4-11.0 34-Xrf-070019:45 CCP 2 {units} (Normal) Range: 0-19 Comments: Negative <20Weak positive 20 - 39Moderate positive 40 - 59Strong positive >59Performed at: BN - [facility]1447 [place], [place] [id number] Director: Loco Ivey MD, Phone: [phone] 00-Mku-773045:45 CMP GAP 4 (Abnormal) Range: 5-15 CO2 [...] ng/mL (>250 nmol/L) :46 Vitamin D Hydroxy (99365) Comments: PATIENT WAS FASTINGPERFORMED BY: Zenedy Rmccpi1235 [facility] [id number] Vitamin D, 25-Hydroxy 22.7 ng/mL (Abnormal) Range: [...] CREATININE RATIO Comments: PATIENT WAS FASTINGPERFORMED BY: ZenedyCarlsbad Medical CenterGfwocq5233 [facility] [id number] (16059) AND (69831) Microalb/Creat Ratio 37.1 {mg/g_creat} (Abnormal) Range: 0.0-30.0 Microalbumin, Urine 29.9 ug/mL (Abnormal) Range: 0.0-17.0 Creatinine, Urine 80.5 mg/dL (Normal) Range: 15.0-278.0 :46 METABOLIC PANEL, COMPREHENSIVE Comments: PATIENT WAS FASTINGPERFORMED BY: ZenedyCarlsbad Medical CenterUblcmc0315 [facility] [id number] (12111) ALT (SGPT) 7 [iU]/L (Normal) Range: 0-32 [...] Glucose, Serum 141 mg/dL (Abnormal) Range: 65-99 70-Lax-15136:46 LIPID PANEL (45545) Comments: PATIENT WAS FASTINGPERFORMED BY: LabCoLourdes Medical Center of Burlington CountyUlurhw9548 [facility] [id number] LDL/HDL Ratio 2.1 {ratio_units} (Normal) Range: 0.0-3.2 [...] DIFF Comments: PATIENT WAS FASTINGPERFORMED BY: BELKYS LabCoLourdes Medical Center of Burlington CountyFkggzu0704 [facility] [id number] Information: [id number] (46128) Hematology Comments: Note: (Normal) Comments: Verified by [...] (CYANOCOBALAMIN) Comments: PATIENT WAS FASTINGPERFORMED BY: [facility] Vzpdlg4659 [facility] [id number] (91487) Vitamin B12 254 pg/mL (Normal) Range: 211-946 1-Kes-097895:10 HgA1C , Office (19038) HgA1C , Office 6.8 % (Normal) Range: 4.6 - 7.1 0-Mgi-127282:10 Blood Glucose , Office (26056) Blood Glucose , Office 146 (Normal) Comments: non-fasting :36 LIPID PANEL (89543) Comments: PATIENT WAS FASTINGPERFORMED BY: [employer]70 [facility] [id number] VLDL Cholesterol Jyoti VLDLCH mg/dL (Normal) Range: [...] MANUAL DIFF Comments: PATIENT WAS FASTINGPERFORMED BY: [facility]6370 [facility] [id number] Information: [id number] (74376) Immature Grans (Abs) 0.0 {x10E3/uL} (Normal) Range: [...] PANEL, COMPREHENSIVE Comments: PATIENT WAS FASTINGPERFORMED BY: LabCoLourdes [facility] Center of Burlington CountyPhdcye3711 [facility] [id number] (51269) ALT (SGPT) 6 [iU]/L (Normal) Range: 0-32 [...] (Abnormal) Range: 65-99 :36 Vitamin D Hydroxy (06137) Comments: PATIENT WAS FASTINGPERFORMED BY: Modern Mast70 [employer] includes the [facility] [id number] Vitamin D, 25-Hydroxy 17.5 ng/mL (Abnormal) Range: [...] B-12 (CYANOCOBALAMIN) Comments: PATIENT WAS FASTINGPERFORMED BY: [facility] [facility] Vmtdtc0567 [facility] [id number] (21323) Vitamin B12 264 pg/mL (Normal) Range: 211-946 :36 IRON (75007) Comments: PATIENT WAS FASTINGPERFORMED BY: [facility] [facility] Yqffvt7119 [facility] [id number] Iron, Serum 52 ug/dL (Normal) Range: 35-155 60-Hlv-630854:54 HgA1C , Office (63312) HgA1C , Office 7.1 % (Normal) Range: 4.6 - 7.1 :09 VITAMIN B-12 (CYANOCOBALAMIN) Comments: PATIENT WAS FASTINGPERFORMED BY: Zenedy Nacirn8810 [facility] [place] [id number] (04573) Vitamin B12 704 pg/mL (Normal) Range: 211-946 :09 Vitamin D Hydroxy (73295) Comments: PATIENT WAS FASTINGPERFORMED BY: [facility] Slhsyd8739 [facility] Hospitalblin [place] [id number] Vitamin D, 25-Hydroxy 21.8 ng/mL (Abnormal) Range: 30.0-100.0 Comments: Vitamin D deficiency has been defined by the [place] [facility] and an Endocrine Society practice guideline [...] CREATININE RATIO Comments: PATIENT WAS FASTINGPERFORMED BY: AliScotland County Memorial HospitalDpkrfc1618 [facility] [place] [id number] (09034) AND (30348) Microalb/Creat Ratio 24.2 {mg/g_creat} (Normal) Range: 0.0-30.0 Microalbumin, Urine 37.1 ug/mL (Abnormal) Range: 0.0-17.0 Creatinine, Urine 153.6 mg/dL (Normal) Range: 15.0-278.0 :09 METABOLIC PANEL, COMPREHENSIVE Comments: PATIENT WAS FASTINGPERFORMED BY: Zenedy Memlog2012 [facility]in [place] [id number] (99631) ALT (SGPT) 9 [iU]/L (Normal) Range: 0-32 [...] Glucose, Serum 150 mg/dL (Abnormal) Range: 65-99 31-Ikt-32746:09 CBC WITH MANUAL DIFF Comments: PATIENT WAS FASTINGPERFORMED BY: [facility]6370 [facility] [id number] Information: [id number] (84112) Immature Grans (Abs) 0.0 {x10E3/uL} (Normal) Range: [...] {x10E3/uL} (Normal) Range: 3.4-10.8 :09 LIPID PANEL (13897) Comments: PATIENT WAS FASTINGPERFORMED BY: LabCorewell [facility]6370 [facility] [id number] VLDL Cholesterol Jyoti VLDLCH mg/dL (Normal) Range: [...] (Normal) Range: 100-199 :23 HgA1C , Office (97393) HgA1C , Office 7.2 % (Abnormal) Range: [...] Babcock M.D.November 02, 2012 at 3:41:31 PM [id number] Signed GP/GP If you are the referring physician and would like to consult with theradiologist who provided this interpretation, please contact Imani Hayes at [phone]. If this radiologist is unavailable, youwill be directed to another radiologist to assist. If you are a patient with a question regarding this report, pleasecontactyour referring p carlos directly. Professional Interpretation Provided By: Ornicept, Phone , These documents contain legally protected [...] documents. Dictated on 11/02/121540 by Emma Babcock MDribed on 11/02/121542 by ITS IMPORTSign by Shayna ROSAS,John on 11/02/121543 Sign by: John Babcock MD 94-Aoi-336008:33 MICROALBUMIN: CREATININE RATIO Comments: PATIENT WAS FASTINGPERFORMED BY: ExThera MedicalLourdes Medical Center of Burlington CountyQfvihm4678 [facility] [id number] (33005) AND (93527) Microalb/Creat Ratio 31.2 {mg/g_creat} (Abnormal) Range: 0.0-30.0 Microalbumin, Urine 44.7 ug/mL (Abnormal) Range: 0.0-17.0 Creatinine, Urine 143.3 mg/dL (Normal) Range: 15.0-278.0 72-Nhs-263119:33 CBC WITH MANUAL DIFF Comments: PATIENT WAS FASTINGPERFORMED BY: [facility] Hozjkw1519 [facility] [id number] Information: [id number] (24848) Immature Grans (Abs) 0.0 {x10E3/uL} (Normal) Range: [...] 3.77-5.28 WBC 6.9 {x10E3/uL} (Normal) Range: 3.4-10.8 24-Tsm-303359:33 METABOLIC PANEL, COMPREHENSIVE Comments: PATIENT WAS FASTINGPERFORMED BY: [facility]6370 [facility] [id number] (09250) ALT (SGPT) 10 [iU]/L (Normal) Range: 0-32 [...] Glucose, Serum 158 mg/dL (Abnormal) Range: 65-99 73-Wvj-267370:33 VITAMIN B-12 (CYANOCOBALAMIN) Comments: PATIENT WAS FASTINGPERFORMED BY: [employer] [facility] [id number] (64524) Vitamin B12 >1999 pg/mL (Abnormal) Range: 211-946 01-Tog-244167:33 IRON BINDING CAPACITY (TIBC) Comments: PATIENT WAS FASTINGPERFORMED BY: [employer] [facility] [id number] (88023) Iron Saturation 16 % (Normal) Range: 15-55 Iron, Serum 59 ug/dL (Normal) Range: 35-155 UIBC 315 ug/dL (Normal) Range: 150-375 Iron Bind.Cap.(TIBC) 374 ug/dL (Normal) Range: 250-450 26-Vla-557044:33 FERRITIN (67608) Comments: PATIENT WAS FASTINGPERFORMED BY: [employer] [facility] [id number] Ferritin, Serum 29 ng/mL (Normal) Range: 15-150 59-Vyh-260901:33 HEPATIC FUNCTION PANEL Comments: PATIENT WAS FASTINGPERFORMED BY: Zenedy [employer] [facility] [id number] (97355) Bilirubin, Direct 0.12 mg/dL (Normal) Range: 0.00-0.40 99-Kag-948992:33 LIPID PANEL (60846) Comments: PATIENT WAS FASTINGPERFORMED BY: [employer] [facility] [id number] VLDL Cholesterol Jyoti VLDLCH mg/dL (Normal) Range: [...] (Normal) Range: 100-199 :33 Vitamin D Hydroxy (91735) Comments: PATIENT WAS FASTINGPERFORMED BY: LabCoLourdes Medical Center of Burlington CountyMueyyi4858 [facility] [id number] Vitamin D, 25-Hydroxy 21.3 ng/mL (Abnormal) Range: [...] JCEM. 2010; 96(7):1911-30. :22 HgA1C , Office (31065) HgA1C , Office 6.8 % (Normal) Range: [...] Babcock M.D.August 18, 2012 at 3:19:26 PM [id number] Signed GP/GP If you are the referring physician and would like to consult with theradiologist who provided this interpretation, please contact Imani Hayes at [phone]. If this radiologist is unavailable, youwill be directed to another radiologist to assist. If you are a patient with a question regarding this report, pleasecontactyour referring physician directly. Professional Interpretation Provided By: [employer], Phone , These documents contain legally protected [...] 08/18/12 1522 Sign by: John Babcock MD [id number] BILAT SCRN DIGITAL & CAD Radiology Report [...] Signed:John Babcock M.D.August 18 at 1:37:33 PM [id number] Signed GP/GP If you are the referring physician and would like to consult with theradiologist who provided this interpretation, please contact Sunil louis M.D. at [phone]. If this radiologist is unavailable, youwill be directed to another radiologist to assist. If you are a patient with a question regarding this report, pleasecontactyour referr ing physician directly. Professional Interpretation Provided By: [employer], Phone , These documents contain legally protected [...] 08/18/12 1400 Sign by: John Babcock MD [id number] VERT FX ASSESS/LAT BONE DEN(H) Radiology Report [...] Babcock M.D.August 20, 2012 at 2:14:56 PM [id number] Signed GP/GP If you are the referring physician and would like to consult with jacqueline moya who provided this interpretation, please contact Imani Hayes at [phone]. If this radiologist is unavailable, youwill be directed to another radiologist to assist. If you are a clarice ent with a question regarding this report, pleasecontactyour referring physician directly. Professional Interpretation Provided By: Ornicept, Phone , These documents con tain legally [...] IMPORTSign by John Babcock MD on 08/20/12 141 Sign by: John Babcock MD 39-Vhn-66662:10 LIPID PANEL (14471) Comments: PATIENT WAS FASTINGPERFORMED BY: [place] WaVE Piqico7766 [facility] [id number] VLDL Cholesterol Jyoti VLDLCH mg/dL (Normal) Range: [...] Cholesterol, Total 183 mg/dL (Normal) Range: 100-199 17-Aan-46148:10 METABOLIC PANEL, COMPREHENSIVE Comments: PATIENT WAS FASTINGPERFORMED BY: Flocationslin6370 [facility] [id number] (36911) ALT (SGPT) 5 [iU]/L (Normal) Range: 0-32 [...] Glucose, Serum 133 mg/dL (Abnormal) Range: 65-99 12-Ovo-95676:10 IRON BINDING CAPACITY (TIBC) Comments: PATIENT WAS FASTINGPERFORMED BY: ExThera MedicalLourdes Medical Center of Burlington CountyDbzqrn2565 [facility] [id number] (99669) Iron Saturation 15 % (Normal) Range: 15-55 Iron, Serum 53 ug/dL (Normal) Range: 35-155 UIBC 308 ug/dL (Normal) Range: 150-375 Iron Bind.Cap.(TIBC) 361 ug/dL (Normal) Range: 250-450 :10 FERRITIN (13859) Comments: PATIENT WAS FASTINGPERFORMED BY: LabCoLourdes Medical Center of Burlington CountyAnxten9239 [facility] [id number] Ferritin, Serum 25 ng/mL (Normal) Range: 15-150 53-Abu-69103:10 VITAMIN B-12 (CYANOCOBALAMIN) Comments: PATIENT WAS FASTINGPERFORMED BY: LabCo Sclwgi6435 [facility] [id number] (83444) Vitamin B12 258 pg/mL (Normal) Range: 211-946 75-Bov-46454:10 CBC WITH MANUAL DIFF Comments: PATIENT WAS FASTINGPERFORMED BY: LabCoLourdes Medical Center of Burlington CountyFmoocb7143 [facility] [id number] Information: ADD [id number] AND DRAW FEE 99 1322 (50258) Immature Grans (Abs) 0.0 {x10E3/uL} (Normal) Range: [...] 3.77-5.28 WBC 7.1 {x10E3/uL} (Normal) Range: 4.0-10.5 65-Rwv-88878:10 Vitamin D Hydroxy (22372) Comments: PATIENT WAS FASTINGPERFORMED BY: Zenedy Dgpmkd2791 Ryan RoadDublin [place] [id number] Vitamin D, 25-Hydroxy 20.4 ng/mL (Abnormal) Range: 30.0-100.0 Comments: Vitamin D deficiency has been defined by the [place] [facility] and an Endocrine Society practice guideline [...] Society clinical practice guideline. JCEM. 2010; 96(7):1911-30. 5-Cnu-113606:08 IRON (55798) Comments: PATIENT WAS FASTINGPERFORMED BY: Zenedy Nzcptj7137 [address] [facility] HospitalDublin [place] [id number] Iron, Serum 58 ug/dL (Normal) Range: 35-155 6-Yvm-141541:08 FERRITIN (30914) Comments: PATIENT WAS FASTINGPERFORMED BY: Zenedy Udkenm2657 [address] [facility] HospitalDublin [place] [id number] Ferritin, Serum 25 ng/mL (Normal) Range: 13-150 6-Wyr-648482:08 VITAMIN B-12 (CYANOCOBALAMIN) Comments: PATIENT WAS FASTINGPERFORMED BY: Zenedy Iwedep3677 [address] [facility] Hospitalblin [place] [id number] (89771) Vitamin B12 390 pg/mL (Normal) Range: 211-946 5-Dsx-813066:08 Vitamin D Hydroxy (83391) Comments: PATIENT WAS FASTINGPERFORMED BY: AliCorewell Health Gerber Hospital6370 [facility] [id number] Vitamin D, 25-Hydroxy 25.3 ng/mL (Abnormal) Range: 30.0-100.0 Comments: Vitamin D deficiency has been defined by the [place] [facility] and an Endocrine Society practice guideline [...] Society clinical practice guideline. JCEM. 2010; 96(7):1911-30. 3-Tbx-597515:08 METABOLIC PANEL, COMPREHENSIVE Comments: PATIENT WAS FASTINGPERFORMED BY: AliCoCarlsbad Medical CenterUgybkq1800 [facility] [id number] (96674) ALT (SGPT) 6 [iU]/L (Normal) Range: 0-32 [...] Glucose, Serum 124 mg/dL (Abnormal) Range: 65-99 6-Dhv-947728:08 CBC WITH MANUAL DIFF Comments: PATIENT WAS FASTINGPERFORMED BY: LabCorewell Health Gerber Hospital6370 [facility] [id number] Information: [id number] (49353) Immature Grans (Abs) 0.0 {x10E3/uL} (Normal) Range: [...] 3.77-5.28 WBC 8.2 {x10E3/uL} (Normal) Range: 4.0-10.5 4-Ait-815773:08 LIPID PANEL (32276) Comments: PATIENT WAS FASTINGPERFORMED BY: LabCorewell Health Gerber Hospital6370 [facility] [id number] VLDL Cholesterol Jyoti VLDLCH mg/dL (Normal) Range: [...] Cholesterol, Total 166 mg/dL (Normal) Range: 100-199 7-Lhq-663614:56 HgA1C , Office (02589) HgA1C , Office 7.4 % (Abnormal) Range: 4.6 - 7.1 9-Mwb-272283:56 Blood Glucose , Office (00534) Blood Glucose , Office 142 (Normal) 40-Ujh-616589:40 CBCMD RBCM NORM C+C {NORMAL} (Normal) EOS [...] 4.2-5.4 WBC 11.2 K/mm3 (Abnormal) Range: 4.4-11.0 78-Zfd-638278:40 CMP GAP 7 (Normal) Range: 5-15 CL [...] mg/dL suggests DIABETES MELLITUS per A.D.A. criteria. 66-Eko-73382:04 CHEST WITH CONTRAST Radiology Report See Note [...] Babcock M.D.November 07, 2011 at 1:33:21 PM [id number] Signed GP/GP If you ar e the referring physician and would like to consult with theradiologist who provided this interpretation, please contact Imani Hayes at [phone]. If this radiologist is unavailable, youw ill [...] 11/07/11 1340 Sign by: John Babcock MD 17-Elf-576707:41 Pathology Report Comments: PERFORMED BY: KWCYT [facility] [place] Nhep31510 [facility] [id number] BY: MICHAEL [facility] Zmqjhgg73340 [facility] [id number] Information: [id number] See MATER Comments: Material submitted: .SHAVE BIOPSY LEFT UPPER THIGH NEAR GROINClinical history: .POLYPOID LESION Note (Normal) Diagnosis:SHAVE BIOPSY LEFT UPPER THIGH NEAR GROIN:DERMATOLIPOMA OF THE SKIN..GX/11/03/2011 Electronically signed: .Ubaldo Duran MD, PathologistGross description: .RECEIVED IS A CONTAINER LABELE D BLACK,COMFORT AND DESIGNATEDLEFT UPPER THIGH NEAR GROIN. IN FORMALIN IS AN OVOID, YELLOW/PAYTON TISSUEMEASURING 1.8 X 1.3 X 0.9 CM. THE 0.4 CM RESECTION MARGIN IS INKEDGREEN. THE SPECIMEN IS BISECTED AND BOTH HALVES ARE SUBMITTEDIN TWO CASSETTES, A1 AND A2.COR/TMZCPT .[id number] 73-Dlj-463899:06 CBC WITH MANUAL DIFF Comments: PATIENT NOT FASTINGPERFORMED BY: BELKYS [facility] Ajnrdb9665 Shelby RoadDublPikeville Medical Center [id number] Information: [id number] (04279) Immature Grans (Abs) 0.0 {x10E3/uL} (Normal) Range: [...] 3.77-5.28 WBC 7.9 {x10E3/uL} (Normal) Range: 4.0-10.5 98-Bsa-203772:06 LDH (LD) (LACTATE DEHYDROGENASE) Comments: PATIENT NOT FASTINGPERFORMED BY: [facility]6370 [facility] [id number] (62139) LDH 198 [iU]/L (Normal) Range: 0-214 65-Jnp-549340:06 IRON BINDING CAPACITY (TIBC) Comments: PATIENT NOT FASTINGPERFORMED BY: [facility]6370 [facility] [id number] (41880) Iron Saturation 11 % (Abnormal) Range: 15-55 Iron, Serum 46 ug/dL (Normal) Range: 35-155 UIBC 389 ug/dL (Abnormal) Range: 150-375 Iron Bind.Cap.(TIBC) 435 ug/dL (Normal) Range: 250-450 14-Kvb-604790:06 FERRITIN (79333) Comments: PATIENT NOT FASTINGPERFORMED BY: LabCoLourdes Medical Center of Burlington CountyVhvmqb5047 [facility] [id number] Ferritin, Serum 12 ng/mL (Abnormal) Range: 13-150 6-Anp-344022:03 HgA1C , Office (10413) HgA1C , Office 7.1 % (Normal) Range: 4.6 - 7.1 :34 CBC WITH MANUAL DIFF (59729) Comments: PATIENT WAS FASTINGPERFORMED BY: LabCoLourdes Medical Center of Burlington CountyNmitfj2683 [facility] [id number] Immature Grans (Abs) 0.0 {x10E3/uL} (Normal) Range: [...] 3.77-5.28 WBC 8.3 {x10E3/uL} (Normal) Range: 3.4-10.8 6-Jzw-423900:11 FECAL OCCULT- Tubes sent home (34920) FECAL OCCULT HGB ASSAY, QUAL, 1-3 SIMULTANEOU positive (Normal) :30 HgA1C , Office (46566) HgA1C , Office 7.3 % (Abnormal) Range: [...] mg/dL suggests DIABETES MELLITUS per A.D.A. criteria. 59-Oec-531608:09 MIACRE tMICROCREAT 70.2 {mg/g_CRE} (Abnormal) MIALB 76.8 mg/L (Normal) CREU 109.3 mg/dL (Normal) 96-Yro-716153:09 VITD 23.9 ng/mL (Abnormal) Comments: appt 05-14-11 [...] practice guideline. JCEM. 2010; 96(7): 1911-30.Performed at: [facility] [address] [id number] Director: Charisma Hamilton MD, Phone: [phone] 0-Wmi-108061:21 CHEST WITHOUT CONTRAST Radiology Report See Note [...] radiologist regarding this report, please jyoti edison matteo 54P7sedqwam line @ Dictated on 02/15/111125 by Boone Alarcon DOribed on 02/15/111732 by ITS IMPORTSign by Emery Alarcon DO on 02/15/111733 Sign by: Emery Alarcon DO 2-Jhi-313951:30 HgA1C , Office (14139) HgA1C , Office 7.4 % (Abnormal) Range: 4.6 - 7.1 5-Edg-553810:30 Blood Glucose , Office (03353) Blood Glucose , Office 153 (Normal) 3-Blj-014725:07 CHEST, PA AND LATERAL Radiology Report See [...] on 08/17/102122 Sign by: ANNAMARIE WOODWARD MD 13-Ubw-545478:01 HgA1C , Office (47595) HgA1C , Office 7.9 % (Abnormal) Range: 4.6 - 7.1 09-Mva-615244:01 Blood Glucose , Office (09432) Blood Glucose , Office 133 (Normal) :52 [...] CREAT 107.1 mg/dL (Normal) :52 VIT D,25 72086 19.0 ng/mL (Abnormal) Range: 32.0-100.0 Comments: Recent studies consider the lower limit of 32.0 ng/mL to helena threshold for optimal health.Sunday BETTENCOURT. J Nutr. 2004;135(2):317-22.Performed at: [facility] [place] [address] [place], [place] [address] 296Lab Director: Charisma Hamilton MD, Phone: [phone] :[phone] VITAMIN B12 447 pg/mL (Normal) Range: 254-1320 Comments: There is a low frequency possibility that high titers ofintrinsic blocking antibodies may not be completely inactivated during the reaction pretreatment stepof this testing method. If test results are i n conflictwith the clinical diagnosis, patient should be testedfor the presence of intrinsic factor blocking antibodies. 00-Abi-332903:02 BILAT SCRN DIGITAL & CAD Radiology Report [...] on 04/05/10 0305 Sign by: KEYA TREJO 42-Kqa-495400:02 DEXA BONE DENSITY STUDY (HP) Radiology Report See Note (Normal) Comments: CLINICAL:Female, 69 years old. The patient is postmenopausal. EXAMINATION:DUAL ENERGY X-RAY ABSORPTIOMETRY / DEXA. TECHNIQUE:Bone Mineral Density (BMD) measurements of lumbar spine and bila teralhipswer e obtained using a [employer] scanner.. COMPARISON:Comparison is made with prior examination [...] on 04/04/10 1138 Sign by: John Babcock 32-Axv-71508:28 HgA1C , Office (67142) HgA1C , Office 8.2 % (Abnormal) Range: 4.6 - 7.1 :28 Blood Glucose , Office (59858) Blood Glucose , Office 205 (Normal) :27 [...] CHOL 169 mg/dL (Normal) Comments: <200 mg/dL Ndrzjubks770-663 mg/dL Borderline>240 mg/dL High Risk HDL 24 [...] the presence of intrinsic factor blocking antibodies. 8-Hak-445237:47 CHEST WITHOUT CONTRAST Radiology Report See Note (Normal) Comments: Exam Number: [id number] CT SCAN OF THE THORAX Multiple axial [...] unchanged as well. Reported By: JOHN BABCOCK 68-Qws-298742:27 VITAMIN B-12 (CYANOCOBALAMIN) Comments: PATIENT NOT FASTINGPERFORMED BY: [place] WaVE Npxgxk8875 Simb[place]ixbl[place] [id number] (12927) Vitamin B12 338 pg/mL (Normal) Range: 211-946 Comments: Please note reference interval change 20-Rua-285491:27 Vitamin D Hydroxy (60533) Comments: PATIENT NOT FASTINGPERFORMED BY: [facility] Zifdgv8162 Ryan RoadDublin [place] [id number] Vitamin D, 25-Hydroxy 17.2 ng/mL (Abnormal) Range: 32.0-100.0 Comments: Recent studies consider the lower limit of 32.0 ng/mL to be athreshold for optimal health.Sunday BETTENCOURT. J Nutr. 2004;135(2):317-22. :27 CBC WITH MANUAL DIFF Comments: PATIENT NOT FASTINGPERFORMED BY: Zenedy Ggdwuz1013 [facility] [id number] Information: [id number] (96378) Baso (Absolute) 0.0 {x10E3/uL} (Normal) Range: 0.0-0.2 [...] 3.80-5.10 WBC 7.3 {x10E3/uL} (Normal) Range: 4.0-10.5 :27 METABOLIC PANEL, COMPREHENSIVE Comments: PATIENT NOT FASTINGPERFORMED BY: LabCo Lmdfsx6528 [facility] [id number] (58579) ALT (SGPT) 7 [iU]/L (Normal) Range: 0-40 [...] Range: 65-99 :38 Blood Glucose , Office (61076) Blood Glucose , Office 133 (Normal) :57 [...] CHOL 186 mg/dL (Normal) Comments: <200 mg/dL Cwxlahklb380-197 mg/dL Borderline>240 mg/dL High Risk 23-Klc-93000:57 LIVER ALT 9 U/L (Abnormal) Range: 12-78 D BILI 0.10 mg/dL (Normal) Range: 0.00-0.30 T BILI 0.20 mg/dL (Normal) Range: 0.00-1.00 ALB 3.7 g/dL (Normal) Range: 3.4-5.0 ALK P 51 U/L (Normal) Range: 50-136 AST 6 U/L (Abnormal) Range: 15-37 T PROT 7.3 g/dL (Normal) Range: 6.4-8.2 84-Lhj-384374:17 KNEE,4 OR MORE VIEWS (MT) Radiology Report See Note (Normal) Comments: Exam Number: [id number] CLINICAL:Medial pain X-RAY EXAMINATION RIGHT KNEE TECHNIQUE: [...] Report See Note (Normal) Comments: Exam Number: [id number] NONCONTRAST CHEST CT Comparison is made with [...] difficile Toxins Negative (Normal) Comments: PERFORMED BY: Zenedy [employer] [facility] [id number] :51 A+B, EIA :51 Ova + Parasite Exam Comments: PERFORMED BY: Zenedy [employer] [facility] [id number] Ova + Parasite Exam Final report (Normal) Comments: These results were obtained using wet preparation(s) and trichromestained smear. This test does not include testing for Cryptosporidiumparvum, Cyclospora, or Microsporidia. Result 1 NOCP (Normal) Comments: No ova, cysts, or parasites seen. :51 Stool Culture Comments: Clinical Information: SRC:ST PERFORMED BY: Zenedy [employer] [facility] [id number] Campylobacter Culture Final report (Normal) E coli Shiga Toxin EIA Negative (Normal) Result 1 NCI (Normal) Comments: No Campylobacter species isolated. Result 1 NSS (Normal) Comments: No Salmonella or Shigella recovered. Salmonella/Shigella Screen Final report (Normal) :51 White Blood Cells (WBC), Comments: PERFORMED BY: Zenedy Pbyxmb6956 [facility] [id number] Stool Result 1 NWBC (Normal) Comments: No white blood cells seen. White Blood Cells (WBC), Final report (Normal) Comments: Reference Range: None Seen Stool :52 CBC With Differential/Platelet Comments: PATIENT WAS FASTINGPERFORMED BY: Zenedy Lxzcyi6184 [facility] [id number] Baso (Absolute) 0.0 {x10E3/uL} (Normal) Range: 0.0-0.2 [...] 11.7-15.0 WBC 5.2 {x10E3/uL} (Normal) Range: 4.0-10.5 41-Yqj-410634:52 Comp. Metabolic Panel (14) Comments: PATIENT WAS FASTINGPERFORMED BY: LabCoLourdes Medical Center of Burlington CountyXtxwbn7909 [facility] [id number] A/G Ratio 1.6 (Normal) Range: 1.1-2.5 Albumin, [...] Glucose, Serum 145 mg/dL (Abnormal) Range: 65-99 04-Vac-958687:52 Lipid Panel With LDL/HDL Comments: PATIENT WAS FASTINGPERFORMED BY: [facility]UNC [facility] [id number] Ratio Cholesterol, Total 135 mg/dL (Normal) Range: [...] pg/mL (Normal) Comments: PATIENT WAS FASTINGPERFORMED BY: [facility] ApplicationsUNC [facility] [id number] 0:52 Range: 211-911 Vitamin D, 25-Hydroxy 13.6 ng/mL Comments: PATIENT WAS FASTINGPERFORMED BY: BELKYS [facility] Esvlqk8945 [facility] [id number] 0:52 (Abnormal) Range: 32.0-100.0 Comments: Recent studies consider the lower limit of 32.0 ng/mL to be athreshold for optimal health.Sunday BETTENCOURT. J Nutr. 2004;135(2):317-22. :32 HgA1C , Office (52110) HgA1C , Office 6.9 % (Normal) Range: 4.6 - 7.1 :32 Blood Glucose , Office (51531) Blood Glucose , Office 179 (Normal) 05-Lmp-418132:25 ABDOMEN LIMITED US () Radiology Report See Note (Normal) Comments: Exam Number: [id number] CLINICAL:Abdominal pain. LIMITED ABDOMINAL ULTRASOUND COMPARISON:None. FINDINGS: [...] of cholecystitis. Reported By: HALIMA TURNER M.D. 3-Xpb-302404:35 Urinalysis, Office (27369) UA - BILIRUBIN Moderate (Normal) UA - [...] (14) Comments: PATIENT NOT FASTINGPERFORMED BY: [facility] Gpcjua8599 [facility] [id number] A/G Ratio 1.3 (Normal) Range: 1.1-2.5 Albumin, [...] (7) Comments: PATIENT NOT FASTINGPERFORMED BY: [facility] Kgjolt6281 [facility] [id number] Bilirubin, Direct 0.17 mg/dL (Normal) Range: 0.00-0.40 [...] g/dL (Normal) Range: 6.4-8.2 :27 VIT D,25 53185 16.4 ng/mL (Abnormal) Comments: ORDERED LIPID,LIVER ALSO Range: 32.0-100.0 Comments: Recent studies consider the lower limit of 32.0 ng/mL to helena threshold for optimal health.Sunday BETTENCOURT. J Nutr. 2004;135(2):317-22.Performed At: [address] [id number] :27 VITAMIN B12 430 pg/mL (Normal) Comments: ORDERED LIPID,LIVER ALSO Range: 254-1320 67-Mlw-857464:01 BRAIN/HEAD W/WO CONTRAST Radiology Report See Note (Normal) Comments: Exam Number: [id number] CT OF THE HEAD WITH AND WITHOUT CONTRAST NKTKRYO40-xxwj-enf woman who has had vague symptoms of [...] 02, 2008. Reported By: THANH ANNE M.D. 78-Dhj-61129:51 CBCD,SMEAR DIFF CELLS COUNTED 100 (Normal) EOS [...] mg/dL (Normal) Range: 0.00-0.30 :51 VIT D,25 18909 6.3 ng/mL (Abnormal) Range: 32.0-100.0 Comments: Recent studies consider the lower limit of 32.0 ng/mL to helena threshold for optimal health.Sunday BETTENCOURT. J Nutr. 2004;135(2):317-22.Performed At: [facility] [place], [place] [id number] :51 VITAMIN B12 301 pg/mL (Normal) Range: 211-911 :43 CHEST WITHOUT CONTRAST Radiology Report See Note (Normal) Comments: Exam Number: [id number] CLINICAL: Nodules CT CHEST WITHOUT CONTRAST COMPARISON:April [...] cardiopulmonary disease Reported By: RIO KAY M.D. 83-Fvr-148763:13 HgA1C , Office (29126) HgA1C , Office 7.5 % (Abnormal) Range: 4.6 - 7.1 79-Tpk-095253:13 Blood Glucose , Office (30572) Blood Glucose , Office 203 (Normal) Antiparietal Cell 2.2 {Units} Comments: PERFORMED BY: [address] [id number] 0:04 Antibody (Normal) Range: 0.0-20.0 Comments: Negative 0.0 - 20.0 Equivocal 20.1 - 24.9 Positive >24.9 . Parietal Cell Antibodies are found in 90% of patients with pernicious anemia and 30% of first degree relatives with pernicious anemia. 46-Qix-746121:04 CBC With Differential/Platelet Comments: PERFORMED BY: LabCo[address] [id number] Baso (Absolute) 0.0 {x10E3/uL} Range: 0.0-0.2 (Normal) [...] Factor Abs, Negative (Normal) Comments: PERFORMED BY: Zenedy[address] [id number] 0:04 Serum Vitamin B12 472 pg/mL (Normal) Comments: PERFORMED BY: Ali[address] [id number] 0:04 Range: 211-911 :32 Fecal Occult Blood , Office (28434) Fecal Occult Blood Negative (Normal) , Office Ferritin, Serum 21 ng/mL (Normal) Comments: PATIENT NOT FASTINGPERFORMED BY: [facility] CodeBabyUNC Health [facility] [id number] :21 Range: 10-291 Folate (Folic >24.0 ng/mL (Normal) Comments: PATIENT NOT FASTINGPERFORMED BY: [facility] [facility] CodeBabyUNC Health [facility] [id number] :21 Acid), Serum Comments: Indeterminate: 3.4 - 5.4 Deficient: <3.4 :21 Iron and TIBC Comments: PATIENT NOT FASTINGPERFORMED BY: [facility] CodeBabyUNC Health [facility] [id number] Iron Bind.Cap.(TIBC) 377 ug/dL (Normal) Range: 250-450 Iron Saturation 13 % (Abnormal) Range: 15-55 Iron, Serum 49 ug/dL (Normal) Range: 35-155 UIBC 328 ug/dL (Normal) Range: 150-375 LDH 145 [iU]/L (Normal) Comments: PATIENT NOT FASTINGPERFORMED BY: [facility] CodeBabyUNC [facility] [id number] :21 Range: 100-250 Reticulocyte Count 2.1 % (Normal) Comments: PATIENT NOT FASTINGPERFORMED BY: Zenedy CodeBabyUNC [facility] [id number] :21 Range: 0.5-3.0 Vitamin B12 182 pg/mL Comments: PATIENT NOT FASTINGPERFORMED BY: LabCoLourdes [facility] of Burlington CountyJxgaff9319 [facility] [id number] :21 (Abnormal) Range: 211-911 :33 HgA1C , Office (59024) Comments: done>Wf. HgA1C , Office 6.8 % (Normal) Range: 4.6 - 7.1 :33 Blood Glucose , Office (41991) Comments: done>Wf. Blood Glucose , Office 150 [...] mg/dL VLDL 54 mg/dL (Abnormal) Range: 5-40 08-Udq-390696:06 LIVER Comments: SEND A COPY OF THE LIPID AND LIVER RESULTSONLY. JLG ALB 3.6 g/dL (Normal) Range: 3.4-5.0 ALK P 47 U/L (Abnormal) Range: 50-136 ALT 25 U/L (Abnormal) Range: 30-65 AST 14 U/L (Abnormal) Range: 15-37 D BILI 0.06 mg/dL (Normal) Range: 0.00-0.30 T BILI 0.31 mg/dL (Normal) Range: 0.00-1.00 T PROT 6.7 g/dL (Normal) Range: 6.4-8.2 38-Yak-275505:27 BILAT SCRN DIGITAL & CAD Radiology Report See Note (Normal) Comments: Exam Number: [id number] MAMMOGRAM, BILATERAL SCREENING DIGITAL AND CAD HISTORYRoutine [...] kailash werealso examined with computer-aided detection software ([employer] Reported By: KEYA TREJO M.D. 99-Fjs-316358:27 DEXA BONE DENSITY STUDY (HP) Radiology Report See Note (Normal) Comments: Exam Number: [id number] BONE DENSITOMETRY HISTORYPostmenopausal. TECHNIQUE Bone densitometry of the lumbar spine and left hip was performed. Thebest criteria for evaluation of osteoporosis is the T- value, whichrepresents the comparison of the patient's bone mass to an expectedpeak bone mass. For most patients, the mean T-value of L1 through L4is used to evaluate the lumbar spine. Based on the [facility] WorldHealth Organization classifications, the [...] left hip. Reported By: KEYA TREJO M.D. 72-Vix-508780:46 HgA1C , Office (82374) HgA1C , Office 6.7 % (Normal) Range: 4.6 - 7.1 87-Nbt-152249:46 Blood Glucose , Office (68452) Blood Glucose , Office 170 (Normal) :46 [...] Report See Note (Normal) Comments: Exam Number: [id number] RIGHT KNEE CLINICAL INFORMATIONKnee pain. Standing AP [...] Report See Note (Normal) Comments: Exam Number: [id number] CT CHEST NONCONTRAST CLINICAL STATEMENTFollow of lung [...] RICHARD CANADA M.D. :33 HgA1C , Office (99704) HgA1C , Office 6.5 % (Normal) Range: 4.6 - 7.1 :33 Blood Glucose , Office (35987) Blood Glucose , Office 89 (Normal) :34 [...] Range: 6.4-8.2 :17 Blood Glucose , Office (40571) Blood Glucose , Office 175 (Normal) :41 [...] Report See Note (Normal) Comments: Exam Number: [id number] CT SCAN OF CHEST HISTORYCough. Consecutive axial [...] is suggested. Reported By: KEYA TREJO M.D. 1-Jgf-030200:45 HgA1C , Office (80694) Comments: [facility] HgA1C , Office 6.6 % (Normal) Range: 4.6 - 7.1 :45 Blood Glucose , Office (40046) Comments: [facility] Blood Glucose , Office 105 (Normal) :55 [...] Report See Note (Normal) Comments: Exam Number: [id number] CHEST PA AND LATERAL STATEMENTCough and pneumonia. [...] CHIVO MONIQUE M.D. :41 HgA1C , Office (26596) HgA1C , Office 6.8 % (Normal) Range: 4.6 - 7.1 :41 Blood Glucose , Office (38334) Blood Glucose , Office 126 (Normal) 14-Jot-170541:11 CBCD,SMEAR DIFF CELLS COUNTED 100 (Normal) EOS [...] 47-70 WBC 7.4 K/mm3 (Normal) Range: 4.4-11.0 24-Pzb-701659:11 COMP METABOLIC A/G 1.1 {RATIO} (Normal) Range: [...] T PROT 7.1 g/dL (Normal) Range: 6.4-8.2 94-Itb-518510:11 COMPLETE UA BACTERIA 0 SEEN {/hpf} (Normal) [...] (Normal) Range: 0-5 Comments: Result: 0-5 SEEN 45-Imj-447004:11 MICROALBUMIN,UR 9.1 mg/L (Normal) :11 PFLIP CHOL [...] mg/dL VLDL 58 mg/dL (Abnormal) Range: 5-40 23-Uxc-466146:11 TSH 0.85 {uIU/mL} (Normal) Range: 0.34-4.82 :11 HgA1C , Office (11307) HgA1C , Office 6.7 % (Normal) Range: 4.6 - 7.1 :11 Blood Glucose , Office (52825) Blood Glucose , Office 153 (Normal) Plan of Care Name Dates Details Instructions Diabetes mellitus type II, controlled : Follow up in 3 months Indication: Diabetes mellitus type II, controlled Asthma : Reviewed [employer] Pilot Letter Indication: Asthma Coronary artery disease : Reviewed [employer] Letter Indication: Coronary artery disease Hypertensive heart disease without heart failure : HTN/CAD Red Flags Indication: Hypertensive heart disease without heart failure ATRIAL FIBRILLATION (Renamed from A-fib) : Reviewed [employer] Letter Indication: ATRIAL FIBRILLATION (Renamed from A-fib) Type 2 diabetes mellitus, uncontrolled : Follow up in 3 months Indication: Type 2 diabetes mellitus, uncontrolled Coronary artery disease : Reviewed [employer] Letter Indication: Coronary artery disease Hypertensive heart [...] heart failure Coronary artery disease : Reviewed [employer] Letter Indication: Coronary artery disease Diabetes mellitus [...] ATRIAL FIBRILLATION (Renamed from A-fib) : Reviewed [employer] Letter Indication: ATRIAL FIBRILLATION (Renamed from A-fib) [...] ATRIAL FIBRILLATION (Renamed from A-fib) : Reviewed Barge [employer] Letter Indication: ATRIAL FIBRILLATION (Renamed from A-fib) Type 2 diabetes mellitus, uncontrolled : Follow up in 3 months Indication: Type 2 diabetes mellitus, uncontrolled Gout, arthritis : Reviewed Lab Indication: Gout, arthritis Asthma : Reviewed Barge [employer] Letter Indication: Asthma Type 2 diabetes mellitus, uncontrolled : *Diabetes Education Indication: Type 2 diabetes mellitus, uncontrolled Coronary artery disease : Reviewed Barge Pilot Letter Indication: Coronary artery disease Mixed dyslipidemia [...] Indication: Asthma Coronary artery disease : Reviewed Barge [employer] Letter Indication: Coronary artery disease Hypertensive heart [...] meninges : Follow up on Friday with [facility] Indication: Benign neoplasm of cerebral meninges [...] : Follow up in 10 days with [facility] Indication: Cough Laryngitis : Laryngitis Education [...] pelvic and bimanual performed Planned Observations TSH ([id number])Indication: Diabetes mellitus type II, controlled On: :15 Request URINALYSIS, W/ MICRO ([id number])Indication: Diabetes mellitus type II, controlled On: :15 Request MICROALBUMIN: CREATININE RATIO ([id number]) AND (31505)Indication: Diabetes mellitus type II, controlled On: :15 Request METABOLIC PANEL, COMPREHENSIVE ([id number])Indication: Diabetes mellitus type II, controlled On: :15 Request CBC W/AUTO DIFF WBC ([id number])Indication: Diabetes mellitus type II, controlled On: :15 Request LIPOPROTEIN, BLD, BY NMR ([id number])Indication: Diabetes mellitus type II, controlled On: :15 Request VITAMIN B-12 (CYANOCOBALAMIN) ([id number])Indication: Other vitamin B12 deficiency anemia On: 3-Zgx-673412:13 Request TSH ([id number])Indication: ATRIAL FIBRILLATION (Renamed from A-fib) On: 43-Kms-679753:16 Request URINALYSIS, W/ MICRO ([id number])Indication: Diabetes mellitus type II, controlled On: 90-Icf-694150:16 Request MICROALBUMIN: CREATININE RATIO (51771) AND ([id number])Indication: Diabetes mellitus type II, controlled On: 83-Suq-411715:16 Request METABOLIC PANEL, COMPREHENSIVE (56763)Indication: Diabetes mellitus type II, controlled On: 08-Iey-454178:16 Request LIPOPROTEIN, BLD, BY NMR ([id number])Indication: Diabetes mellitus type II, controlled On: 61-Oua-893041:16 Request LIPID PANEL ([id number])Indication: Diabetes mellitus type II, controlled On: 47-Saa-733056:16 Request CBC W/AUTO DIFF WBC ([id number])Indication: Diabetes mellitus type II, controlled On: 01-Gdw-310732:15 Request VITAMIN B-12 (CYANOCOBALAMIN) (95173)Indication: Other vitamin B12 deficiency anemia On: 1-Inc-103432:50 Request TSH ([id number])Indication: ATRIAL FIBRILLATION (Renamed from A-fib) On: 1-Dnp-104239:50 Request URINALYSIS, W/ MICRO ([id number])Indication: Hypertensive heart disease without heart failure On: 6-Nin-207153:49 Request MICROALBUMIN: CREATININE RATIO ([id number]) AND (01373)Indication: Hypertensive heart disease without heart failure On: 2-Sij-410798:49 Request METABOLIC PANEL, COMPREHENSIVE (55728)Indication: Hypertensive heart disease without heart failure On: 0-Bcm-320062:49 Request CBC W/AUTO DIFF WBC ([id number])Indication: Hypertensive heart disease without heart failure On: 9-Hjk-649764:49 Request CALCIFEDIOL (00309)Indication: Vitamin D deficiency, unspecified On: 0-Ade-153294:49 Request LIPID PANEL (82648)Indication: Mixed dyslipidemia On: 1-Xbe-711157:49 Request URINALYSIS, W/ MICRO (65465)Indication: Type 2 diabetes mellitus, uncontrolled On: 03-Xha-880442:23 Request MICROALBUMIN: CREATININE RATIO (69185) AND (05155)Indication: Type 2 diabetes mellitus, uncontrolled On: 91-Eld-573888:23 Request HEMOGLOBIN GLYCLATED (HGB A1C) (30447)Indication: Type 2 diabetes mellitus, uncontrolled On: 28-Bir-904676:03 Request HgA1C , Office (89766)Indication: Type 2 diabetes mellitus, uncontrolled On: 70-Bsv-091545:46 Request Vitamin D Hydroxy (58030)Indication: Vitamin D deficiency, unspecified On: 45-Mqu-658393:16 Request VITAMIN B-12 (CYANOCOBALAMIN) (19135)Indication: Other vitamin B12 deficiency anemia On: 31-Rkt-688062:16 Request CBC with auto diff ([id number])Indication: Iron deficiency anemia, unspecified On: 59-Ngh-375787:15 Request LIPID PANEL (63608)Indication: Mixed dyslipidemia On: 52-Ocd-127645:15 Request METABOLIC PANEL, COMPREHENSIVE (96254)Indication: Type 2 diabetes mellitus, uncontrolled On: 57-Bmw-005081:15 Request CBC W/AUTO DIFF WBC (56686)Indication: Iron deficiency anemia, unspecified On: 27-Lwd-437380:44 Request URINALYSIS, W/ MICRO (74383)Indication: Heart disease, hypertensive, malignant, without heart failure On: 87-Cgs-610140:44 Request METABOLIC PANEL, COMPREHENSIVE (13030)Indication: Heart disease, hypertensive, malignant, without heart failure On: 87-Cxa-559049:44 Request MICROALBUMIN: CREATININE RATIO (66748) AND (76481)Indication: Heart disease, hypertensive, malignant, without heart failure On: 60-Blj-252612:44 Request IRON ([id number])Indication: Iron deficiency anemia, unspecified On: 71-Mvz-943188:44 Request CBC, Platelets & Auto Diff (20653)Indication: SOB On: 3-Ogg-478441:09 Request Renal function Panel (22190)Indication: SOB On: 3-Gmc-661838:09 Request Vitamin D Hydroxy (45132)Indication: Vitamin D deficiency, unspecified On: 56-Fju-336912:04 Request VITAMIN B-12 (CYANOCOBALAMIN) (29784)Indication: Other vitamin B12 deficiency anemia On: 96-Xkv-924061:04 Request METABOLIC PANEL, COMPREHENSIVE (27634)Indication: Type 2 diabetes mellitus, uncontrolled On: 04-Lxa-026416:04 Request IRON ([id number])Indication: Iron deficiency anemia, unspecified On: 90-Qsw-896033:59 Request IRON (32992)Indication: Iron deficiency anemia, unspecified On: 71-Tdj-560256:18 Request CBC WITH MANUAL DIFF ([id number])Indication: Iron deficiency anemia, unspecified On: 82-Pdw-146509:43 Request METABOLIC PANEL, COMPREHENSIVE (78791)Indication: Hypertensive heart disease without heart failure On: 70-Tyl-636016:43 Request CBC with manual diff (15325)Indication: Anemia On: :53 Request Comments: recheck in 3 months Ferritin (38497)Indication: Anemia On: :53 Request Iron Binding Capacity (TIBC) (56212)Indication: Anemia On: :53 Request Iron (82203)Indication: Anemia On: :53 Request LIPID PANEL (18842)Indication: Mixed dyslipidemia On: :43 Request IRON (43392)Indication: Iron deficiency anemia, unspecified On: 43-Krs-559662:35 Request Vitamin D Hydroxy (91295)Indication: Vitamin D deficiency, unspecified On: 4-Kaw-721857:14 Request METABOLIC PANEL, COMPREHENSIVE (49598)Indication: Type 2 diabetes mellitus, uncontrolled On: 6-Ryb-744502:13 Request IRON BINDING CAPACITY (TIBC) (20200)Indication: Iron deficiency anemia, unspecified On: 9-Xvr-167550:10 Request FERRITIN ([id number])Indication: Iron deficiency anemia, unspecified On: 5-Pab-371344:10 Request IRON ([id number])Indication: Iron deficiency anemia, unspecified On: 8-Mva-499746:10 Request MICROALBUMIN: CREATININE RATIO (68166) AND (69196)Indication: Type 2 diabetes mellitus, uncontrolled On: 1-Tza-003746:58 Request METABOLIC PANEL, COMPREHENSIVE (84464)Indication: Type 2 diabetes mellitus, uncontrolled On: 3-Lzv-970865:58 Request CBC WITH MANUAL DIFF (05814)Indication: Type 2 diabetes mellitus, uncontrolled On: 0-Jgx-848363:58 Request Vitamin D Hydroxy (58475)Indication: Vitamin D deficiency, unspecified On: 3-Ncd-933097:58 Request VITAMIN B-12 (CYANOCOBALAMIN) (02833)Indication: Other vitamin B12 deficiency anemia On: 4-Oey-213006:58 Request LIPID PANEL (42035)Indication: Mixed dyslipidemia On: 13-Pxl-203069:01 Request METABOLIC PANEL, COMPREHENSIVE (83003)Indication: Hypertension On: : Request CBC WITH MANUAL DIFF ([id number])Indication: Other vitamin B12 deficiency anemia On: : Request VITAMIN D, 1, 25-DIHYDROXY (96476)Indication: Vitamin D deficiency, unspecified On: : Request Vitamin D Hydroxy (06198)Indication: Vitamin D deficiency, unspecified On: : Request LIPID PANEL (76134)Indication: Mixed dyslipidemia On: : Request METABOLIC PANEL, COMPREHENSIVE (97329)Indication: Diabetes mellitus type II, controlled On: : Request CBC WITH MANUAL DIFF ([id number])Indication: Other vitamin B12 deficiency anemia On: : Request MICROALBUMIN: CREATININE RATIO (93450) AND ([id number])Indication: Diabetes mellitus type II, controlled On: : Request VITAMIN B-12 (CYANOCOBALAMIN) (66654)Indication: Other vitamin B12 deficiency anemia On: : Request HEMOGLOBIN GLYCLATED (HGB A1C) (71423)Indication: Diabetes mellitus type II, controlled On: :27 Request LIPID PANEL (83353)Indication: Mixed dyslipidemia On: :16 Request METABOLIC PANEL, COMPREHENSIVE (93801)Indication: Type 2 diabetes mellitus, uncontrolled On: :15 Request CBC WITH MANUAL DIFF ([id number])Indication: Type 2 diabetes mellitus, uncontrolled On: :15 Request MICROALBUMIN: CREATININE RATIO (83645) AND (17965)Indication: Type 2 diabetes mellitus, uncontrolled On: :15 Request VITAMIN B-12 (CYANOCOBALAMIN) (02975)Indication: Other vitamin B12 deficiency anemia On: :15 Request Vitamin D Hydroxy (32043)Indication: Vitamin D deficiency, unspecified On: :15 Request HgA1C , Office (01771)Indication: Type 2 diabetes mellitus, uncontrolled On: 54-Wdc-720543:38 Request VITAMIN B-12 (CYANOCOBALAMIN) (55311)Indication: Other vitamin B12 deficiency anemia On: :55 Request LIPID PANEL (90128)Indication: Mixed dyslipidemia On: :55 Request METABOLIC PANEL, COMPREHENSIVE (21462)Indication: Heart disease, hypertensive, malignant, without heart failure On: :53 Request CBC WITH MANUAL DIFF (11796)Indication: Diverticulitis On: :53 Request LEUKOCYTE COUNT, FECAL (27065)Indication: Diarrhea On: :47 Request C.Difficile, Stool (86641)Indication: Diarrhea On: :47 Request BRO CULTURE-STOOL (97566)Indication: Diarrhea On: :47 Request Metabolic Panel, Comprehensive (17358)Indication: Abdominal pain, unspecified abdominal location On: :46 Request HEPATIC FUNCTION PANEL (26080)Indication: Abdominal pain, unspecified abdominal location On: :46 Request Bilirubin, Direct (20793)Indication: Abdominal pain, unspecified abdominal location On: :44 Request Bilirubin, total (08424)Indication: Abdominal pain, unspecified abdominal location On: :44 Request CBC WITH MANUAL DIFF (47258)Indication: Other vitamin B12 deficiency anemia On: :15 Request VITAMIN B-12 (CYANOCOBALAMIN) (85258)Indication: Other vitamin B12 deficiency anemia On: 69-Jhp-937307:15 Request LIPID PANEL (34694)Indication: Mixed dyslipidemia On: :14 Request METABOLIC PANEL, COMPREHENSIVE (01782)Indication: Heart disease, hypertensive, malignant, without heart failure On: 64-Woh-420630:14 Request Vitamin D Hydroxy (25775)Indication: Vitamin D deficiency, unspecified On: :06 Request CBC, PLATELETS & AUT DIFF (90231)Indication: Other vitamin B12 deficiency anemia On: :45 Request VITAMIN B-12 (CYANOCOBALAMIN) (18443)Indication: Other vitamin B12 deficiency anemia On: :45 Request HEPATIC FUNCTION PANEL (21533)Indication: Mixed dyslipidemia On: :44 Request LIPID PANEL (18813)Indication: Mixed dyslipidemia On: :44 Request Vitamin D Hydroxy (24607)Indication: vit d deficiency On: :33 Request Vitamin D Hydroxy (87360) On: : Request VITAMIN B-12 (CYANOCOBALAMIN) (22304)Indication: Other vitamin B12 deficiency anemia On: : Request CBC WITH MANUAL DIFF ([id number])Indication: Heart disease, hypertensive, malignant, without heart failure On: : Request METABOLIC PANEL, COMPREHENSIVE (01905)Indication: Heart disease, hypertensive, malignant, without heart failure On: : Request LIPOPROTEIN, BLD, BY NMR (40896)Indication: Mixed dyslipidemia On: Request HEPATIC FUNCTION PANEL (03867)Indication: Mixed dyslipidemia On: : Request LIPID PANEL (26332)Indication: Mixed dyslipidemia On: : Request FOLIC ACID SERUM (84554)Indication: Anemia On: : Request FERRITIN (15961)Indication: Anemia On: : Request IRON (26939)Indication: Anemia On: Request IRON BINDING CAPACITY (TIBC) (81391)Indication: Anemia On: Request RETICULOCYTE COUNT MANUL (38589)Indication: Anemia On: : Request LDH (LD) (LACTATE DEHYDROGENASE) (74472)Indication: Anemia On: Request VITAMIN B-12 (CYANOCOBALAMIN) (20482)Indication: Anemia On: : Request CBC WITH MANUAL DIFF ([id number])Indication: Anemia On: : Request HEPATIC FUNCTION PANEL (10969)Indication: Mixed dyslipidemia On: Request LIPID PANEL (40816)Indication: Mixed dyslipidemia On: Request MICROALBUMIN URINE QUANT (51743)Indication: Hypertension On: :42 Request TSH (29051)Indication: Hypertension On: :42 Request METABOLIC PANEL, COMPREHENSIVE (07753)Indication: Diabetes mellitus type II, controlled On: 84-Iyw-722425:42 Request HEPATIC FUNCTION PANEL (43271)Indication: Mixed dyslipidemia On: 10-Edl-816151:42 Request LIPID PANEL (50225)Indication: Mixed dyslipidemia On: 24-Cju-474039:42 Request CBC WITH MANUAL DIFF (93610)Indication: Anemia On: :36 Request HEPATIC FUNCTION PANEL (01192)Indication: Mixed dyslipidemia On: :36 Request LIPID PANEL (23302)Indication: Mixed dyslipidemia On: :36 Request HgA1C , Office (23998)Indication: Diabetes mellitus type II, controlled On: :17 Request URINALYSIS W/O MICRO (82483)Indication: Hypertension On: :47 Request TSH ([id number])Indication: Hypertension On: 80-Eqk-664694:47 Request METABOLIC PANEL, COMPREHENSIVE (31645)Indication: Hypertension On: 85-Bhx-578016:47 Request CBC WITH MANUAL DIFF ([id number])Indication: Hypertension On: 83-Btk-191381:47 Request Thin prep Pap (00352)Indication: well female - pap pelvic and bimanual performed On: 3-Zds-769036:02 Request Planned Encounters Medical; 3 Month FU - On: 23-Mar-2018 10:00 [facility] Nia Uriostegui DO, DO, Kathleen Planned Procedures Flu Vaccine (Quadrivalent) On: 15-Dec-2017 Intent 53387Bw: Nia Uriostegui DO Comments: Lot #[id number]-L dltd, IMDose prefilled syringegiven by: Susie Lopez LPN.VIS reviewed and ABN signed Nia Uriostegui DO B 12 Injection, 1000 mcg On: 15-Dec-2017 Intent (J3420)By: Nia Uriostegui DO Comments: 1 ml given rt dltd lot [id number] exp 05/30 Nia Uriostegui DO ELECTROCARDIOGRAM, COMPLETE On: 15-Dec-2017 Intent (ECG) (28579)By: Moody MCFARLAND, Comments: nsr !! yeah- no acute chg poor R wave progression Nia Reed DO ELECTROCARDIOGRAM, COMPLETE On: 27-Aug-2017 Intent (ECG) (20149)By: Moody MCFARLAND, Comments: nsr - ivcd - pvc no acute chg Nia MoodyNia prakash DO B 12 Injection, 1000 mcg On: 28-May-2017 Intent (J3420)By: Nia Uriostegui DO Comments: vitamin b12 1000mcg injectionlot: [id number]:11/2018L DELT IMpt tolerated wellAD SUPERVISING LAW ENFORCEMENT ANALYST MoodyNia prakash DO B 12 Injection, 1000 mcg On: 12-Feb-2017 Intent (J3420)By: Nia Uriostegui DO Comments: 1 ml given lt arm lot [id number] exp 06/28 MoodySelam prakash DOhleen B 12 Injection, 1000 mcg On: 29-Nov-2016 Intent (J3420)By: Nia Uriostegui DO Comments: b12 1000mcglot: [id number]: 03/2018L DELT IMpt tolerated wellAD SUPERVISING LAW ENFORCEMENT ANALYST Nia Uriostegui DO Flu Vaccine (Quadrivalent) On: 07-Nov-2016 Intent 10874Xb: Nia Uriostegui DO Comments: Lot:[id number]:07/28/17Amt:0.5mlRoute:IMSite: L DltdGiven By: RAHUL Bar signed Nia Uriostegui DO B 12 Injection, 1000 mcg On: 04-Nov-2016 Intent (J3420)By: Nia Uriostegui DO Comments: lot [id number] exp [id number] mcgleft dltdIMas Nia Uriostegui DO B 12 Injection, 1000 mcg On: 08-Aug-2016 Intent (J3420)By: Nia Uriostegui DO Comments: Lot:[id number]:07/28Dose:1mlRoute:IMSite:l armGiven By:SASKIA signed Nia Uriostegui DO B 12 Injection, 1000 mcg On: 24-Apr-2016 Intent (J3420)By: Nia Uriostegui DO Comments: Lot:[id number]:05/28Dose:1mlRoute:IMSite:Given By:SASKIA signed Nia Uriostegui DO ELECTROCARDIOGRAM, COMPLETE On: 24-Apr-2016 Intent (ECG) (51196)By: Moody MCFARLAND, Comments: sinus ana no acute chg Nia Uriostegui Nia MCFARLAND Aerosol Treatment (83734)By: On: 27-Feb-2016 Intent Balbir Cramer MD Solu- Medrol Injection, 125mg On: 27-Feb-2016 Intent (J2930)By: Balbir Cramer MD Comments: lot [id number] 07/20182582115 mgleft gmIMas, SUPERVISING LAW ENFORCEMENT ANALYST Pulse Oximetry (43116)By: Bela On: 16-Jan-2016 Intent Balbir ROSAS Aerosol Treatment (21320)By: On: 16-Jan-2016 Intent Balbir Cramer MD Solu- Medrol Injection, 125mg On: 16-Jan-2016 Intent (J2930)By: Balbir Cramer MD Comments: Lot:[id number]:06/28Dose:125mgRoute:imSite:r hipGiven By:SASKIA signed CHEST XRAY, PA & LATERAL On: 16-Jan-2016 Intent (33032)By: Balbir Cramer MD Comments: ?PNA CAROTID ULTRASOUND (61364)By: On: 16-Jan-2016 Intent Balbir Cramer MD DEXA SCAN AXIAL SKELETON On: 16-Jan-2016 Intent (23991)By: Balbir Cramer MD MAMMOGRAM, SCREENING, BOTH On: 16-Jan-2016 Intent BREAST (94437)By: Balbir Cramer MD B 12 Injection, 1000 mcg On: 16-Jan-2016 Intent (J3420)By: Balbir Cramer MD Comments: lot: [id number]: ite/route: L del/IMamt: 1mLVIS signed when applicableMONSTER Molina B 12 Injection, 1000 mcg On: 11-Oct-2015 Intent (J3420)By: Balbir Cramer MD Flu Vaccine (Quadrivalent) On: 11-Oct-2015 Intent 66319Gv: Balbir Cramer MD Comments: Lot #[id number]-0/30/17ite-L dltd, IMDose prefilled syringegiven by:MAYCO OSWALD and ABN signed B 12 Injection, 1000 mcg On: 22-May-2015 Intent (J3420)By: Maylin Melendez DO B 12 Injection, 1000 mcg On: 17-Mar-2015 Intent (J3420)By: Maylin Melendez DO Comments: lot: [id number]: 10/27site/route: L del/IMamt: 1mLVIS signed when applicableChebridgette BUILDING INSPECTION ENGINEER PNEUM VAC ADLT/IMUMNOSPR, On: 30-Dec-2014 Intent SBC/INTRM (71075)By: Al MCFARLAND, Comments: PNUEMOlot:[id number]:1*13*17site:Rt deltoidroute:IMdose:.5mlDEMICK, SMA Maylin A B 12 Injection, 1000 mcg On: 30-Dec-2014 Intent (J3420)By: Maylin Melendez DO Comments: B12lot:[id number]:05/27site: LT deltoidROute: IMdose:1ml ADMINISTRATION OF INFLUENZA On: 21-Oct-2014 Intent VIRUS VACCINE (G0008)By: Maylin Melendez DO FLU VAC, SPLIT, >3 YEARS, On: 21-Oct-2014 Intent INTRAMUSC (16641)By: Al MCFARLAND, Comments: lot: [id number]: 08/09/ite/route: L del/IMamt: 1mLVIS signed when applicableChelsMONSTER armenta Maylin A MAMMOGRAM, SCREENING, BOTH On: 05-Oct-2014 Intent BREAST (14986)By: Maylin Melendez DO Cartoid DopplerBy: Al MCFARLAND, On: 05-Oct-2014 Intent Maylin A B 12 Injection, 1000 mcg On: 05-Oct-2014 Intent (J3420)By: Maylin Melendez DO Comments: Lot:[id number]:02Route:IMSite:R deltoidDose: 1 mLgiven by: Adalgisa Sexton CMA B 12 Injection, 1000 mcg On: 01-Sep-2014 Intent (J3420)By: Adalgisa Sexton Comments: Lot:[id number]:12.26Route:IMSite:R deltoidDose: 1 mLgiven by: Adalgisa Sexton CMA B 12 Injection, 1000 mcg On: 26-May-2014 Intent (J3420)By: Adalgisa Sexton Comments: lot:[id number]:04/25route:IMdose:1MLSite:R deltoidgiven by: ANS B 12 Injection, 1000 mcg On: 11-Apr-2014 Intent (J3420)By: Kaci Gomez LPN Comments: lot: [id number]: 11/25Dose: 1,000 mcgSite: l dltdLocation; IMby: Solu -Medrol Injection, 125 mg On: 22-Feb-2014 Intent (J2930)By: Maylin Melendez DO Comments: [id number] 6.67224 mgleft KASIA Love Solu -Medrol Injection, 125 mg On: 31-Jan-2014 Intent (J2930)By: Sherrie Amor CNP Comments: lot [id number] 06/2016location R hiproute imgiven by - msmith VIS and/or ABN signed B 12 Injection, 1000 mcg On: 21-Jan-2014 Intent (J3420)By: Maylin Melendez DO Comments: lot [id number] 05/2015location L armroute imgiven by - msmith VIS and/or ABN signed Aerosol Treatment (02928)By: On: 14-Jan-2014 Intent Sherrie Amor CNP Radiology - ChestBy: Mt On: 14-Jan-2014 Intent Sherrie OJEDA Comments: stat call results to Dr 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 is travel professional EKG (24350)By: Mt OJEDA, On: 14-Jan-2014 Intent Sherrie Beck Comments: looks same as before No new ST -t wave changes ADMINISTRATION OF INFLUENZA On: 29-Nov-2013 Intent VIRUS VACCINE (G0008)By: Al Comments: Lot #[id number]-L dltd, IMDose prefilled syringegiven by:LORIN laurent and ABN signed Maylin MCFARLAND FLU VAC, SPLIT, >3 YEARS, On: 29-Nov-2013 Intent INTRAMUSC (54299)By: Maylin Melendez DO B 12 Injection, 1000 mcg On: 29-Nov-2013 Intent (J3420)By: Maylin Melendez DO Comments: magen, R dltd, Im - see flowsheet for lot and exp Radiology - Knee - Left - On: 06-Sep-2013 Intent Weight BearingBy: Maylin Melendez DO MAMMOGRAM, SCREENING, BOTH On: 18-Aug-2013 Intent BREAST (76804)By: Fast DO, Maylin A B 12 Injection, 1000 mcg On: 18-Aug-2013 Intent (J3420)By: Layton Melendez DOa A Aerosol Treatment (06503)By: On: 16-Jul-2013 Intent Mt OJEDA Sherrie Beck Aerosol Treatment (20633)By: On: 09-Jul-2013 Intent Mt OJEDA Sherrie Beck Radiology - ChestBy: Mt On: 09-Jul-2013 Intent RUSTY Sherrie Beck Eprescribed prescriptions On: 09-Jul-2013 Intent (G8553)By: Mt OJEDA Sherrie Beck B 12 Injection, 1000 mcg On: 24-Jun-2013 Intent (J3420)By: Visit, Nurse Eprescribed prescriptions On: 24-Jun-2013 Intent (G8553)By: Visit, Nurse Solu- Medrol Injection, 125mg On: 21-Jun-2013 Intent (J2930)By: Mt OJEDA Sherrie Beck Cartoid DopplerBy: Al MCFARLAND, On: 05-May-2013 Intent Maylin A Eprescribed prescriptions On: 05-May-2013 Intent (G8553)By: Layton Melendez DOa A B 12 Injection, 1000 mcg On: 27-Apr-2013 Intent (J3420)By: Visit, Nurse Comments: Lot:[id number]:12/25Dose:1mlRoute:IMSite:l armGiven By:SASKIA signed Aerosol Treatment (07983)By: On: 17-Feb-2013 Intent Nia Uriostegui DO, DO, Comments: more q/e less cough -- ok to use rescue inhaler prn not moer than bid with a fib -- if needs ansd worsen go to ER-- pulse reguar after treatment Nia Spirometry (65167)By: Moody On: 17-Feb-2013 Intent Nia MCFARLAND DO, Comments: mild restriction -- stable Nia Solu- Medrol Injection, 125mg On: 17-Feb-2013 Intent (J2930)By: Nia Uriostegui DO Comments: lot: [id number]: 516site/route: RGM/IMamt: 2mLVIS signed when applicableMONSTER Molina DO, Kathleen Eprescribed prescriptions On: 17-Feb-2013 Intent (G8553)By: Nia Uriostegui DO, DO Nia EKG (19467)By: Maylin Melendez DO On: 12-Jan-2013 Intent A Comments: ekg showed normal sinus rhythym, left axis, no acute st/t wave changes Pelvic and Breast, Medicare On: 12-Jan-2013 Intent (G0101)By: Natalya Kohli Eprescribed prescriptions On: 18-Dec-2012 Intent (G8553)By: Maylin Melendez DO FLU VAC, SPLIT, >3 YEARS, On: 18-Dec-2012 Intent INTRAMUSC (29387)By: Seun, Comments: Lot #:[id number] date:mount given:0.5mlRoute: IMSite given: L dltdVIS and ABN signedGiven by: CHILO Gillespie ADMINISTRATION OF INFLUENZA On: 18-Dec-2012 Intent VIRUS VACCINE (G0008)By: Natalya Kohli B 12 Injection, 1000 mcg On: 01-Dec-2012 Intent (J3420)By: Tracy Barnes Comments: Lot:[id number]:09/24Dose:1mlRoute:IMSite:l armGiven By:SASKIA signed Eprescribed prescriptions On: 02-Nov-2012 Intent (G8553)By: Sherrie Amor CNP Radiology - Foot - RightBy: On: 02-Nov-2012 Intent Sherrie Amor CNP B 12 Injection, 1000 mcg On: 19-Oct-2012 Intent (J3420)By: Tracy Barnes Comments: lot: [id number]: 09/23site/route: L deltoid/IMamt: 1mLVIS signed when applicableMONSTER Molina B 12 Injection, 1000 mcg On: 31-Aug-2012 Intent (J3420)By: Maylin Melendez DO Comments: Lot: [id number]: [id number]: 1000mcg/1mlRoute: IMSite: L deltoidGiven by: KASIA Samson Eprescribed prescriptions On: 31-Aug-2012 Intent (G8553)By: Natalya Kohli Nuclear Medicine - Other - On: 18-Aug-2012 Intent Vertebral AssessmentBy: Al Comments: Maylin Vogel DO DXA, BONE DENSITY, AXIAL On: 22-Jun-2012 Intent SKELETON (27074)By: Maylin Melendez DO MAMMOGRAM, SCREENING, BOTH On: 22-Jun-2012 Intent BREASTS (21970)By: Maylin Melendez DO B 12 Injection, 1000 mcg On: 15-Jun-2012 Intent (J3420)By: Tracy Barnes Comments: lot: [id number]: 12/24site/route: R deltoid/IMamt: 1,000mcgVIS signed when applicableChelsea, BUILDING INSPECTION ENGINEER Eprescribed prescriptions On: 17-Apr-2012 Intent (G8553)By: Natalya Kohli 12 Injection, 1000 mcg On: 13-Apr-2012 Intent (J3420)By: Ramona Vásquez Comments: Lot:[id number]:01/23Dose:1mlRoute:IMSite:r armGiven By:SASKIA signed Eprescribed prescriptions On: 27-Mar-2012 Intent (G8553)By: Susie Lopez LPN FLU VAC, SPLIT, >3 YEARS, On: 17-Jan-2012 Intent INTRAMUSC (40380)By: Al MCFARLAND, Comments: Lot #[id number]/13Site-left deltoidgiven by: KASIA Fajardo ADMINISTRATION OF INFLUENZA On: 17-Jan-2012 Intent VIRUS VACCINE (G0008)By: Maylin Melendez DO Eprescribed prescriptions On: 17-Jan-2012 Intent (G8553)By: Natalya Kohli 12 Injection, 1000 mcg On: 31-Dec-2011 Intent (J3420)By: Maylin Melendez DO Comments: Lot:[id number]:Dose:1mlRoute:IMSite:L armGiven By:JACQUIE Aerosol Treatment (58075)By: On: 24-Dec-2011 Intent Sherrie Amor CNP B 12 Injection, 1000 mcg On: 29-Oct-2011 Intent (J3420)By: Natalya Kohli Comments: Lot #[id number]-R arm, IMDose-prefilled syringegiven by:MLong, LPNVIS signed CT - ChestBy: Al MCFARLAND Maylin A On: 24-Sep-[address] - ChestBy: Fast DO Maylin A On: 24-Sep-2011 Intent Holter Monitor 24 hrsBy: Fast On: 17-Sep-2011 Intent DO Maylin A Comments: please do this week and copy to dr betsy AREVALO ([id number])By: Al DO Maylin On: 17-Sep-2011 Intent A Comments: ekg- sinus with muptiple pvcs - left axis B 12 Injection, 1000 mcg On: 17-Sep-2011 Intent (J3420)By: Natayla Kohli Comments: Lot #:[id number] date:mount given:1mlRoute: IMSite given:left deltoidGiven by: CHILO Gillespie INJECTION, VITAMIN B-12 On: 22-Jul-2011 Intent CYANOCOBALAMIN, UP TO 1000 Comments: Lot #[id number]-02/22Site-left deltoidDose- 1 mlgiven by: Emili Stark LPN MCG (Special Coverage Instructions Apply. See CIM: 45-4 and MCM: 2049) (J3420)By: Carol Stark LPN B 12 Injection, 1000 mcg On: 23-May-2011 Intent (J3420)By: Ericka Thao RN Comments: Lot #: [id number] date: ount given: 1 mlRoute: IMSite given: right deltoidGiven by: GEOFF Salcido MAMMOGRAM, SCREENING, BOTH On: 14-May-2011 Intent BREASTS ([id number])By: Maylin Melendez DO CT - ChestBy: Al DO Maylin A On: 14-May-2011 Intent Comments: due next month B 12 Injection, 1000 mcg On: 16-Apr-2011 Intent (J3420)By: Ericka Thao RN Comments: Lot #: [id number] date: ount given: 1000 mcg/mlRoute: IMSite given: right deltoidGiven by: GEOFF Salcido B 12 Injection, 1000 mcg On: 18-Mar-2011 Intent (J3420)By: Carol Stark LPN Comments: Lot #[id number]-01/21Site-left deltoidDose- 1 mlgiven by: Emili Stark LPN B 12 Injection, 1000 mcg On: 15-Feb-2011 Intent (J3420)By: Carol Reina LPN Comments: Lot #[id number]-R arm, IMDose 1mlgiven by:Carol Paniagua 12 Injection, 1000 mcg On: 14-Jan-2011 Intent (J3420)By: Natalya Kohli Comments: Lot:0816Exp:01/21Amt:1mlRoute:IMSite:left deltGiven By: KASIA Hihgtower Eprescribed prescriptions On: 14-Jan-2011 Intent (G8553)By: Maylin Melendez DO CT - ChestBy: Maylin Melendez DO A On: 14-Jan-2011 Intent B 12 Injection, 1000 mcg On: 21-Nov-2010 Intent (J3420)By: Carol Reina LPN Comments: Lot #[id number]-11.21Site-Right dltd, IMDose 1mlgiven by:KASIA Medina Solu -Medrol Injection, 125 mg On: 24-Aug-2010 Intent (J2930)By: Sherrie Amor CNP Comments: Lot #[id number]-R hip, IMDose 125mg, 2 mlgiven by: Aerosol Treatment ([id number])By: On: 24-Aug-2010 Intent Sherrie Amor CNP Pulse Oximetry ([id number])By: Keesha On: 24-Aug-2010 Intent Ericka TELLEZ Spirometry (23302)By: Al On: 03-Aug-2010 Intent DO Maylin A Comments: good efffort and curve normal EKG (51705)By: Layton Melendez DOa On: 03-Aug-2010 Intent A Comments: ekg showed normal sinus rhythym, normal axis, no acute st/t wave changes poor r wave progression Radiology - Chest- PA and On: 03-Aug-2010 Intent LatBy: Layton Melendez DOa A B 12 Injection, 1000 mcg On: 11-Jul-2010 Intent (J3420)By: Carol Stark LPN Comments: Lot #[id number]-01/20Site-left deltoidDose- 1 mlgiven by: Emili Stark LPN TD Injection , IM ([id number])By: On: 20-Apr-2010 Intent Maylin Melendez DO Comments: Lot #[id number]/12Site-L dtd, IMDose prefilledgiven by: B 12 Injection, 1000 mcg On: 04-Apr-2010 Intent (J3420)By: Carol Stark LPN Comments: Lot #[id number]-12/22Site-left deltoidDose- 1 mlgiven by:[facility] B 12 Injection, 1000 mcg On: 16-Jan-2010 Intent (J3420)By: Carol Reina LPN Comments: Lot #[id number]-R opzPtun6ompqzqk by: B 12 Injection, 1000 mcg On: 12-Dec-2009 Intent (J3420)By: Carol Stark LPN Comments: Lot #[id number]-06/21Site-left deltoidDose- 1 mlgiven by:MAYRA FLU VAC, SPLIT, >3 YEARS, On: 14-Nov-2009 Intent INTRAMUSC ([id number])By: Natalya Kohli ADMINISTRATION OF INFLUENZA On: 14-Nov-2009 Intent VIRUS VACCINE (G0008)By: Comments: Lot #: [id number] date:mount given: 0.5 mlRoute: IMSite given: left deltoid Given by: Lane Romeo, RN Natalya Kohli DXA, BONE DENSITY, AXIAL On: 01-Nov-2009 Intent SKELETON (60970)By: Maylin Melendez DO MAMMOGRAM, SCREENING, BOTH On: 01-Nov-2009 Intent BREASTS (24080)By: Maylin Melendez DO ADMINISTRATION OF PNEUMOCOCCAL On: 01-Nov-2009 Intent VACCINE (G0009)By: Maylin Melendez DO PNEUM VAC ADLT/IMUMNOSPR, On: 01-Nov-2009 Intent SBC/INTRM ([id number])By: Maylin Melendez DO B 12 Injection, 1000 mcg On: 01-Nov-2009 Intent (J3420)By: Carol Reina LPN Comments: Lot #[id number]-06/21Site-L dltdDose 30m/mlgiven by:KASIA GONZALES Pneumovax ([id number])By: Nuno On: 01-Nov-2009 Intent Carol PEDROZA Comments: Lot #[id number]-August 2010Site-R dltdDose 0.5mlgiven by:KASIA ANDERS B 12 Injection, 1000 mcg On: 25-Aug-2009 Intent (J3420)By: Carol Stark LPN Comments: Lot #[id number]-/Site-left deltoidDose- 1 mlgiven by:MAYRA B 12 Injection, 1000 mcg On: 13-Jul-2009 Intent (J3420)By: Monik Rushing Comments: Lot #[id number]-01/2011Site-left nexwqozVpfp8339buo/1mlgiven by Diana Rushing LPN CT - ChestBy: Fast DO, Maylin A On: 05-Jun-2009 Intent Spirometry ([id number])By: On: 05-Jun-2009 Intent Natalya Kohli Comments: goo deffort and curve mild small airway obst B 12 Injection, 1000 mcg On: 24-May-2009 Intent (J3420)By: Carol Stark LPN Comments: Lot #[id number]-8/Site-right deltoidDose- 1 mlgiven by:[facility] Radiology - Knee - Right - On: 23-Dec-2008 Intent Weight BearingBy: Fast DO, Maylin A B 12 Injection, 1000 mcg On: 23-Dec-2008 Intent (J3420)By: Natalya Kohli Comments: Lot #:[id number] date:mount given:1mlRoute: IMSite given:left deltoidGiven by: CHILO Gillespie Aerosol Treatment ([id number])By: On: 08-Nov-2008 Intent Natalya Carter Comments: post treatment breath sounds clear bilat. pt. states feels breathing better. Pulse Oximetry (37522)By: On: 08-Nov-2008 Intent Natalya Carter Comments: 95% CT - ChestBy: Fast DO, Maylin A On: 03-Oct-2008 Intent Comments: november Ultrasound - GallbladderBy: On: 15-Sep-2008 Intent Sherrie Amor CNP Ultrasound - Abdomen Complete On: 15-Sep-2008 Intent & PelvisBy: Mt OJEDA, Sherrie Beck B 12 Injection, 1000 mcg On: 07-Sep-2008 Intent (J3420)By: Mya Barahona Comments: lot #:[id number]:04/2010site:right deltoidGiven by CHILO Roque B 12 Injection, 1000 mcg On: 02-Aug-2008 Intent (J3420)By: Maylin Melendez DO Comments: 1ml given im lt mamie lot [id number] exp 12-20 B 12 Injection, 1000 mcg On: 05-Jul-2008 Intent (J3420)By: Maylin Melendez DO Comments: Lot #[id number]-12/2009Site-left fzkphxwVjvw4502nvl/1mlgiven by Diana Rushing LPN CT - Brain/HeadBy: Al MCFARLAND, On: 31-May-2008 Intent Maylin A EKG (81628)By: Maylin Melendez DO On: 10-May-2008 Intent A Comments: ekg showed normal sinus rhythym, leftaxis, nonspecific t changges unchanged fromprevious Echo CompleteBy: Al MCFARLAND, On: 10-May-2008 Intent Maylin A PFT - CompleteBy: Al MCFARLAND, On: 10-May-2008 Intent Maylin A Pulse Oximetry (71172)By: Al On: 10-May-2008 Intent Maylin MCFARLAND Comments: 95 Spirometry (33833)By: Al On: 10-May-2008 Intent DO Maylin A Comments: good effort and curve mild restriction CT - ChestBy: Maylin Melendez DO A On: 10-May-2008 Intent Bio Z ([id number])By: Al MCFARLAND, On: 10-May-2008 Intent Maylin A Comments: numbers loog good INJECTION, VITAMIN B-12 On: 10-May-2008 Intent CYANOCOBALAMIN, UP TO 1000 MCG (Special Coverage Instructions Apply. See CIM: 45-4 and MCM: 2049) (J3420)By: Natalya Kohli B 12 Injection, 1000 mcg On: 08-Apr-2008 Intent (J3420)By: Ericka Thao RN B 12 Injection, 1000 mcg On: 11-Mar-2008 Intent (J3420)By: Susanna Masterson Comments: Lot #[id number] date:mount given:1mlSite given: left deltoidGiven by: INJECTION, VITAMIN B-12 On: 01-Feb-2008 Intent CYANOCOBALAMIN, UP TO 1000 MCG (Special Coverage Instructions Apply. See CIM: 45-4 and MCM: 2048) (J3420)By: Melina Muhammad LPNe B 12 Injection, 1000 mcg On: 01-Jan-2008 Intent (J3420)By: Monik Rushing Comments: Lot #[id number]-5/10Site-left [id number] by Diana Rushing LPN INJECTION, VITAMIN B-12 On: 03-Dec-2007 Intent CYANOCOBALAMIN, UP TO 1000 Comments: injection given in left deltoid, Ptolerated welllo # [id number] 5/10 MCG (Special Coverage Instructions Apply. See CIM: 45-4 and MCM: 2048) (J3420)By: Irais Monreal B 12 Injection, 1000 mcg On: 26-Nov-2007 Intent (J3420)By: Monik Rushing Comments: Lot #[id number]-5/10Site-left [id number] by Diana Rushing LPN INJECTION, VITAMIN B-12 On: 19-Nov-2007 Intent CYANOCOBALAMIN, UP TO 1000 MCG (Special Coverage Instructions Apply. See CIM: 45-4 and MCM: 2048) (J3420)By: Adriane Muhammad LPN INJECTION, VITAMIN B-12 On: 12-Nov-2007 Intent CYANOCOBALAMIN, UP TO 1000 MCG (Special Coverage Instructions Apply. See CIM: 45-4 and MCM: 2048) (J3420)By: Adriane Muhammad LPN B 12 Injection, 1000 mcg On: 05-Nov-2007 Intent (J3420)By: Adriane Muhammad LPN Cartoid DopplerBy: Al MCFARLAND, On: 30-Oct-2007 Intent Maylin A Spirometry ([id number])By: Al On: 30-Oct-2007 Intent DO Maylin A Comments: good effort and curve- some small airway decrease Radiology - Chest- PA and On: 30-Oct-2007 Intent LatBy: Al MCFARLAND Maylin A DXA, BONE DENSITY, AXIAL On: 24-Jul-2007 Intent SKELETON ([id number])By: Al MCFARLAND, Comments: postmenopausal without estrogen Maylin Sherman MAMMOGRAM, SCREENING, BOTH On: 24-Jul-2007 Intent BREASTS ([id number])By: Maylin Melendez DO Radiology - Knee - Right - On: 15-Jun-2007 Intent Weight BearingBy: Al MCFARLAND, Comments: call results Maylin Sherman CT - ChestBy: Maylin Melendez DO On: 03-Apr-[address] - ChestBy: Maylin Melendez DO On: 15-Aug-2006 Intent Spirometry ([id number])By: Al On: 15-Aug-2006 Intent Maylin MCFARLAND Comments: good effort and curve- mild obstruction EKG (49246)By: Seun, On: 15-Aug-2006 Intent Natalya Comments: ekg showed normal sinus rhythym, normal axis, no acute st/t wave changes Radiology - ChestBy: LEE On: 25-Jun-2006 Intent PAMELA OJEDA Comments: PA and LAT Solu- Medrol Injection, 125mg On: 25-Jun-2006 Intent (J2930)By: PAMELA HOWARD CNP Pulse Oximetry (31166)By: On: 25-Jun-2006 Intent PAMELA HOWARD CNP Comments: pt tolerated well. ins waiver signed Aerosol Treatment ([id number])By: On: 25-Jun-2006 Intent PAMELA HOWARD CNP Comments: ins wwaiver signed, pt tolerated well Spirometry (89832)By: Al On: 14-May-2006 Maylin Amaya DO Comments: good effort and curve-mild obstruction ADMINISTRATION OF PNEUMOCOCCAL On: 11-Feb-2006 Intent VACCINE (G0009)By: ULYSSES Quiñones PNEUM VAC ADLT/IMUMNOSPR, On: 11-Feb-2006 Intent SBC/INTRM ([id number])By: ULYSSES Quiñones Bio Z ([id number])By: Al MCFARLAND, On: 11-Feb-2006 Intent Maylin Sherman Comments: bp was 132/65- cardiac output, svr and thoracic fluid content is normal- will hold on med changes PNEUM VAC ADLT/IMUMNOSPR, On: 11-Feb-2006 Intent SBC/INTRM ([id number])By: Maylin Melendez DO ADMINISTRATION OF PNEUMOCOCCAL On: 11-Feb-2006 Intent VACCINE (G0009)By: Fast DO, Maylin A MAMMOGRAM, SCREENING, BOTH On: 16-Oct-2005 Intent BREASTS (62135)By: Al DO Maylin A Planned Medications INJECTION, METHYLPREDNISOLONE SODIUM SUCCINATE, UP TO 125 MG Ordered: 17-Feb-2013 Pending Nia Uriostegui DO, DO, Nia INJECTION, METHYLPREDNISOLONE SODIUM SUCCINATE, UP TO 125 MG Ordered: 31-Jan-2014 Pending tM OJEDA, Carlotta INJECTION, METHYLPREDNISOLONE SODIUM SUCCINATE, UP TO 125 MG Ordered: 24-Aug-2010 Pending Jennifera AEROSPACE QUALITY ENGINEER, Carlotta INJECTION, METHYLPREDNISOLONE SODIUM SUCCINATE, UP TO 125 MG Ordered: 22-Feb-2014 Pending Al MCFARLAND, Maylin A INJECTION, METHYLPREDNISOLONE SODIUM SUCCINATE, UP [...] MCG/ML Injection Solution Ordered: 21-Jan-2014 Pending Al DO, Maylin A Vitamin B-12 [...] 1000 MCG/ML Injection Solution Ordered: 24-Jun-2013 Pending Mj, Vitamin B-12 1000 MCG/ML Injection Solution Ordered: 28-May-2017 Pending Moody DO, Nia Moody DO, Nia Vitamin B-12 1000 MCG/ML Injection Solution Ordered: 16-Jan-2010 Pending Long SUPERVISING LAW ENFORCEMENT ANALYST, Carol L Vitamin B-12 1000 MCG/ML Injection Solution Ordered: 04-Apr-2010 Pending Elyuszti SUPERVISING LAW ENFORCEMENT ANALYST, Carol Vitamin B-12 1000 MCG/ML Injection Solution Ordered: 11-Jul-2010 Pending Hluszti SUPERVISING LAW ENFORCEMENT ANALYST, Carol Vitamin B-12 1000 MCG/ML Injection Solution Ordered: 21-Nov-2010 Pending Long SUPERVISING LAW ENFORCEMENT ANALYST, Carol L Vitamin B-12 1000 MCG/ML Injection Solution Ordered: 14-Jan-2011 Pending Natalya Kohli Vitamin B-12 1000 MCG/ML Injection Solution Ordered: 15-Feb-2011 Pending Long SUPERVISING LAW ENFORCEMENT ANALYST, Carol L Vitamin B-12 1000 MCG/ML Injection Solution Ordered: 18-Mar-2011 Pending Elyuszbetty SUPERVISING LAW ENFORCEMENT ANALYST, Carol Vitamin B-12 1000 MCG/ML Injection Solution Ordered: 16-Apr-2011 Pending Ericka Thao RN Vitamin B-12 1000 MCG/ML Injection Solution Ordered: 23-May-2011 Pending Ericka Thao RN Vitamin B-12 1000 MCG/ML Injection Solution Ordered: 22-Jul-2011 Pending Hluszti SUPERVISING LAW ENFORCEMENT ANALYST, Carol Vitamin B-12 1000 MCG/ML Injection Solution Ordered: 17-Sep-2011 Pending Natalya Kohli Vitamin B-12 1000 MCG/ML Injection Solution Ordered: 29-Oct-2011 Pending Seun Natalya Vitamin B-12 1000 MCG/ML Injection Solution Ordered: 31-Dec-2011 Pending Fast DO, Maylin A Vitamin B-12 1000 MCG/ML Injection Solution Ordered: 13-Apr-2012 Pending Ramona Vásquez Vitamin B-12 1000 MCG/ML Injection Solution Ordered: 15-Jun-2012 Pending Manjovank Tracy Vitamin B-12 1000 MCG/ML Injection Solution [...] DO, DO, Kathleen Instructions Name Dates Details Diabetes mellitus type II, controlled : How [...] Instructions Indication: Anemia Encounters Office Visit On: 15-Dec-2017 10:36 Encounter Reason: [...] Reason for ER visit: note: (afib in [facility] hosp from sat till wed). The patient [...] well. Patient has been compliant with instructions. [facility] End: 04-Apr-2015 23:22 t medication use: no side effects and compliant with dosing regimen. Patient sleeps 6 hours per night. Nutrition: balanced diet. The medical issues the patient is following up for include asthma, blood sugar issues and high cholesterol. fasting blood sugars : (120-160). Note for Follow up for chronic medical issues: she is seeing ntay because having issues with bowels again- -and [...] SOB. Had a stress test with my [employer] machine and everything came back normal.), has decreased [...] weatching diet we talked about [employer] sports assistant she doesnt want to - we talked about diabetes disease progression- she notices swelling better if moving around more - hasnt been back to [facility] for lungs so think should do [...] had an MRI with doc up in [place] and was told that she had a [...] patient does not have durable power of family law attorney. The patient has noticed nothing from the geriatic depression scale. Other providers contributing to the patient's care are [employer], gastrologist nora wilson other: (neurologist). 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 The patient feels well with no complaints [...] first time happened while family there at [place] while family eating dinner - other time happened when her friend was talking about his open heart surgery - feels like may be panic or anxiety- she was at [employer] a few mos ago and he had [...] of the cough has been gradual (since febuary). The cough is ch aracterized as dry. [...] cough has been gradual (had pneumonia in Mar. ). The cough is characterized as productive [...]
--- OUTSIDE RECORDS SUMMARY | 2018-02-18 04:27 | XMS RPT_ITS | Continuity of Care Document ---
:1940 Author Organization [facility] Address [address] [place] [address] Phone Care Team Providers Name Role Phone Nia Uriostegui DO Unavailable Je Rodriguez Unavailable Dr. 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 AMLODIPINE BESYLATE, 5MG (Oral Tablet) 1 Tablet [...] : 17-Apr-2012 End : 17-Apr-2012 Discontinued ERGOCALCIFEROL, 02236FVZP (Oral Capsule) 1 (one) Capsule q week [...] switch to her tradjenta VITAMIN D (ERGOCALCIFEROL), 52944FQVV (Oral Capsule) 1 Capsule twice a week for 0 days Quantity: 24 {Capsule} Refills: 1 Ordered:17-Sep-2011 Natalya Kohli Start : 17-Sep-2011 End : 17-Sep-2011 Discontinued ZITHROMAX Z-PIPER, 250MG (Oral Tablet) 1 Tablet TAD for 0 days Quantity: 1 {Package(s)} Refills: 0 Ordered:02-Mar-2014 Ntaalya Kohli Start : 22-Feb-2014 End : 02-Mar-2014 [...] related [facility] Status: Inactive as of 24-Apr-2016 Unspecified [...] US, Limited Result: Comments: See Note; NOTES: [facility] Cardiovascular Services [address] [place] [address] Art Duplex US Unilat Lower Ext 12/15/17 1350 MR#: [id number] Acct: [id number] Name: COMFORT OLSON Rep #: [id number] : 1940 77 From: Je Ceron MD Attending Dr: JAYA GARZA Status: REG CLI Ordering Dr: Je Ceron MD Date: 12/15/17 Location: [facility] Sex: F C Admitted: Antoinette ludy For Study: F/U PSA thrombin injection Right Velocities RT MEDIA STRATEGIST - .72 x .74 cm with a [...] Date Dictated: 12/15/17 1350 Date Transcribed: 12/15/171701 Splitting Machine Operator Helper: Signed 12-Dec-2017 Arterial Duplex US, Limited Result: Comments: See Note; NOTES: [facility] Cardiovascular Services [address] [place] [address] Art Duplex US Unilat Lower Ext 12/12/17 1304 MR#: [id number] Acct: [id number] Name: COMFORT OLSON Rep #: [id number] : 1940 77 From: Je Ceron MD Attending Dr: Je Ceron MD Status: REG CLI Ordering Dr: Je Ceron MD Date: 12/12/17 Location: [facility] Sex: F C Admitted: Reason For Study: RT Groin pseudoanerysm thrombin injection Right Velocities Rt groin pseudoaneurysm successfully thrombosed s/p thrombin injection. Normal color flow and doppler signal MEDIA STRATEGIST and FV. P rocedure Exam performed in department. Interpretation Summary Successful thrombosis right femoral pseudoaneurysm __ Ordering Physician: Je Ceron Performed By: Sanaz Sheth RVT 12/12/17 1404 Date Je Ceron MD CC: Nia Uriostegui DO; Je Ceron MD Date Dictated: 12/12/17 1304 Date Transcribed: 12/12/17 1404 Splitting Machine Operator Helper: Signed 12-Dec-2017 Operative Report Result: Comments: See Note; NOTES: [facility] Medical Records Department [address] [place] [address] Operative Report 12/12/17 1359 MR#: [id number] Acct: [id number] Name: COMFORT OLSON Rep #: [id number] : 1940 77 From: Je Ceron MD [...] Visit Report Result: Comments: See Note; NOTES: [facility] [place] 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 Greene. Patient is about 10 days out. She complained of swelling and pain. She presented to Dr. Richmond's office yesterday. A ultrasound was obtained. This demonstrates a 2 cm pseudoaneurysm in the [facility] groin but there is additional concern for [...] Visit Report Result: Comments: See Note; NOTES: [facility] Services [address] [place] [address] OFFICE VISIT Date of Service: 12/11/17 MR#: [id number] Acct: [id number] Patient: COMFORT OLSON Rep #: [id number] : 1940 Provider: Jonel Rashid MD Age/Sex: 77/F Location: [facility] Status: Signed Intake Intake Visit Reasons: PER [...] PO BID 08/24/17 [History Confirmed 10/31/17] Methscopolamine [place] 5 mg PO BID 08/24/17 [History Confirmed [...] -MATTIE Extrem Result: Comments: See Note; NOTES: [facility] Cardiovascular Services [address] [place] [address] Art Duplex US Bilat Lower Ext 12/11/17 1408 MR#: [id number] Acct: [id number] Name: COMFORT OLSON Rep #: [id number] : 1940 77 From: Je Ceron MD Attending Dr: Annemarie Parsons Status: REG CLI Ordering Dr: Jonel Rashid MD Date: 12/11/17 Location: [facility] Sex: F C Admitted: Reason For Study: Rt groin pain/ecchymosis - Right Velocities Left Velocities RT MEDIA STRATEGIST - 1.2 x 1.2 cm with a velocity of 159.0 LT MEDIA STRATEGIST - .88 x .83 cm with a [...] Date Dictated: 12/11/17 1408 Date Transcribed: 12/11/171818 Splitting Machine Operator Helper: Signed 04-Nov-2017 Operative Report Result: Comments: See Note; NOTES: [facility] Medical Records Department [address] [place] [address] Operative Report 11/03/17 1228 MR#: [id number] Acct: [id number] Name: COMFORT OLSON Rep #: [id number] : 1940 76 From: Patrick Ellsworth MD PCP: Nia Uriostegui DO Status: [facility] Y Location: [facility] Problem List (1) New onset atrial flutter Status: Acute (2) Atherosclerotic heart disease of [place] coronary artery without angina pectoris Status: Chronic Qualifiers: [place] vs. transplanted heart: [place] heart Qualified Code(s): I25.10 - Atherosclerotic heart disease of [place] nitin nary artery without angina pectoris Comment: 08/06/2004 CABG x2 VILLAGRAN side to side to second Diagonal and end to side to Anterior Descending artery in Sequential fashion. [facility]: 08/01/2004; 10/15/2011 (3) Cardiomyopathy in diseases classified [...] is a 76-year-old female who presented to [facility] for an elective outpat ient [...] Visit 9xxxx: Other Procedure See Report - [id number] 11/04/17 0525 <Electronically signed by Patrick Ellsworth MD> Date Patrick Ellsworth MD CC: Patrick Ellsworth MD; Jonel Rashid MD; Nia Uriostegui DO Signed 03-Nov-2017 Operative Report Result: Comments: See Note; NOTES: [facility] Medical Records Department [address] [place] [address] Operative Report 11/03/17 1214 MR#: [id number] Acct: [id number] Name: COMFORT OLSON Rep #: [id number] : 1940 76 From: Jonel Rashid MD [...] Visit Report Result: Comments: See Note; NOTES: [facility] [address] [place] [address] OFFICE VISIT Date of Service: 10/08/17 MR#: [id number] Acct: [id number] Name: COMFORT OLSON p #: [id number] : 1940 Provider: Jonel Rashid MD Age/Sex: 76/F Location: [facility] Status: Signed HPI HPI Chief Complaint: Follow [...] 70 Intake Visit Reasons: ER 8-20 per RUBBER VULCANIZING 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 Allergies No Known Allergies Allergy (Verified 10/08/17 [...] PO BID 08/24/17 [History Confirmed 10/05/17] Methscopolamine [place] 5 mg P O BID 08/24/17 [History [...] BID #180 tab 10/08/17 [Rx Confirmed 10/08/17] [facility] Medical History Left bundle branch block (Chronic) New onset atrial flutter (Acute 09/29/17) 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 (mapping editor) Coding Level of Care Code Off vis,est,level [...] Lead Electrocardiogram Result: Comments: See Note; NOTES: [facility] Cardiovascular Services [address] [place] [address] 12 Lead EKG 10/05/17 0149 MR#: [id number] Acct: [id number] Name: COMFORT OLSON Rep # : [id number] : 1940 76 From: Jonel Rashid MD [...] Confirmed by JONEL RASHID MD ([id number]), editor & co founder AMIRA CASTRO ([id number]) on 10/07/2017 2:45:19 PM Referred By: Jonel Rashid Confirmed By:JONEL RASHID MD 10/07/17 7205 Date _ Jonel Rashid MD CC: Emery Allen MD; Nia Uriostegui DO Signed 07-Oct-2017 12 Lead Electrocardiogram Result: Comments: See Note; NOTES: [facility] Cardiovascular Services [address] [place] [address] 12 Lead EKG 10/05/17 0333 MR#: [id number] Acct: [id number] Name: COMFORT OLSON Rep # : [id number] : 1940 76 From: Jonel Rashid MD [...] Confirmed by GAY ROSAS, JONEL ([id number]), editor & co founder AMIRA CASTRO (56) on 10/07/2017 2:42:56 PM Referred By: Kathleen Rashid Confirmed By:JONEL RASHID MD 10/07/17 144 Date Jonel Rashid MD CC: Emery Allen MD; Nia Uriostegui DO Signed 05-Oct-2017 Discharge Instruction Result: Comments: See Note; NOTES: [facility] Medical Records Department [address] [place] [address] Discharge Instruction 10/05/17 0440 MR#: [id number] Acct: [id number] Name: Liyah OLSON Rep #: [id number] : 1940 76 From: Emery Allen MD [...] Primary Care Provi latrell. Call [facility] ([phone]) or report to the closest Emergency Room. Call 911 if necessary. 10/05/17 0528 <Electronically signed by Emery Allen MD> Date ____ Emery Allen MD Cosigner Signature (If Indicated): Date CC: Nia Uriostegui DO 05-Oct-2017 Emergency Department Summary Result: Comments: See Note; NOTES: [facility] Medical Records Department [address] [place] [address] Emergency Department Summary 10/05/17 0435 MR#: [id number] Acct: [id number] Name: COMFORT OLSON Rep #: [id number] : 1940 76 From: Emery Allen MD [...] flutter This not e was generated with Activ[employer]ation software. It may contain incorrect words, spelling, [...] your Primary Care Provider. Call [facility] ([phone]) or report to the closest Emergency Room. Call 911 if necessary. 10/05/17 0528 &#60 ;Electronically signed by Emery Allen MD> Date Emery Allen MD Cosigner Signature (If Indicated): Date CC: Nia Uriostegui DO 05-Oct-2017 Chest 1 View (Portable) Result: Comments: See Note; NOTES: [facility] Imaging Services [address] [place] [address] Chest 1 View (Portable) MR#: [id number] Acct: [id number] Name: COMFORT OLSON Rep #: [id number] : 1940 F 76 From: Chris Dwyer MD PCP: Nia Uriostegui DO Status: REG ER Study: Chest 1 View (Portable) Date of Exam: 10/05/17 Exam# [id number] Ordering Dr: Emery Allen MD STUDY: X-R [...] of the upper abdomen. ORDER # : [id number] RAD/Chest 1 View (Portable) IMPRESSION: Mild cardiomegaly. Minimal persistent left basilar atelectasis. No evidence for acute cardiopulmonary pathology. Electronically Signed: Chris Dwyer MD at 2:42 EDT , Service support , CC: Emery Allen MD; Nia Uriostegui DO Splitting Machine Operator Helper: Signed 03-Oct-2017 12 Lead Electrocardiogram Result: Comments: See Note; NOTES: [facility] Cardiovascular Services [address] [place] [address] 12 Lead EKG 10/02/17 1353 MR#: [id number] Acct: [id number] Name: COMFORT OLSON Rep # : [id number] : 1940 76 From: Jonel Rashid MD Attending Dr: Jonel Rashid MD Status: REG CLI Ordering Dr: Richard Lombardo SUGAR BOILER-C Date: 10/02/17 Location: [facility] Sex: F C Admitted: [...] Confirmed by JONEL RASHID MD ([id number]), editor & co founder AMIRA CASTRO ([id number]) on 10/03/2017 1:43:28 PM Referred By: Jonel Rashid Confirmed By:USMAN RASHID MD 10/03/17 1343 Date Jonel Rashid MD CC: JOSSELYN Lombardo; Jonel Rashid MD; Nia Uriostegui DO Signed 02-Oct-2017 Echo, Complete w/ Contrast Result: Comments: See Note; NOTES: [facility] Cardiovascular Services [address] [place] [address] Echo Complete W/ Contrast 10/02/17 1250 MR#: [id number] Acct: [id number] Name: COMFORT JONES Rep #: [id number] : 1940 76 From: Jonel Rashid MD Attending Dr: Jonel Rashid MD Status: REG CLI Ordering Dr: Jonel Rashid MD Date: 10/02/17 Location: [facility] Sex: F C Admitted: [...] Date Dictated: 10/02/17 1250 Date Transcribed: 10/02/171742 Splitting Machine Operator Helper: Signed 02-Oct-2017 12 Lead Electrocardiogram Result: Comments: See Note; NOTES: [facility] Cardiovascular Services [address] [place] [address] 12 Lead EKG 09/29/17 1035 MR#: [id number] Acct: [id number] Name: COMFORT OLSON Rep # : [id number] : 1940 76 From: Antonio Tovar MD [...] Confirmed by ZARA ROSAS, ANTONIO ([id number]), editor & co founder AMIRA CASTRO (56) on 10/02/2017 1:30:21 PM Refer red By: BOZENA Confirmed By:ANTONIO TOVAR MD 10/02/17 5920 Date Antonio Tovar MD CC: Nia Uriostegui DO; Jignesh Tello MD Signed 02-Oct-2017 12 Lead Electrocardiogram Result: Comments: See Note; NOTES: [facility] Cardiovascular Services [address] [place] [address] 12 Lead EKG 09/29/17 1020 MR#: [id number] Acct: [id number] Name: COMFORT OLSON Rep # : [id number] : 1940 76 From: Antonio Tovar MD [...] Confirmed by ZARA ROSAS, ANTONIO ([id number]), editor & co founder AMIRA CASTRO (56) on 10/02/2017 1:27:54 PM Referred By: BOZENA Confirmed By:ANTONIO TOVAR MD 10/02/17 1327 Date Antonio Tovar MD CC: Nia Uriostegui DO; Jignesh Tello MD Signed 02-Oct-2017 12 Lead Electrocardiogram Result: Comments: See Note; NOTES: [facility] Cardiovascular Services [address] [address] 12 Lead EKG 09/29/17 0905 MR#: [id number] Acct: [id number] Name: COMFORT OLSON Rep # : [id number] : 1940 76 From: Antonio Tovar MD [...] Abnormal ECG Confirmed by ANTONIO TOVAR MD ([id number]), editor & co founder AMIRA CASTRO (56) on 10/02/2017 1:27:13 PM Referred By: BOZENA Anne d By:ANTONIO TOVAR MD 10/02/171326 Date Antonio Tovar MD CC: Nia Uriostegui DO; Jignesh Tello MD Signed 02-Oct-2017 12 Lead Electrocardiogram Result: Comments: See Note; NOTES: [facility] Cardiovascular Services [address] [place] [address] 12 Lead EKG 09/29/17 0926 MR#: [id number] Acct: [id number] Name: COMFORT OLSON Rep # : [id number] : 1940 76 From: Antonio Tovar MD [...] Abnormal ECG Confirmed by ANTONIO TOVAR MD ([id number]), editor & co founder AMIRA CASTRO ([id number]) on 10/02/2017 1:26:27 PM Referr ed By: BOZENA Confirmed By:ANTONIO TOVAR MD 10/02/171325 Date Antonio Tovar MD CC: Nia Uriostegui DO; Jignesh Tello MD Signed 29-Sep-2017 Emergency Department Summary Result: Comments: See Note; NOTES: [facility] Medical Records Department [address] [place] [address] Emergency Department Summary 09/29/17911 MR#: [id number] Acct: [id number] Name: COMFORT OLSON Rep #: [id number] : 1940 76 From: Jignesh Tello MD [...] Sinus bradycardia. This note was generated with Clifford Thames dictation software. It may contain incorrect words, spelling, and punctuation that were not noted in review of the chart prior to signing ED Disposition - Plan for ED Patient: Chief Complaint: Palpitations Instructions: ED Paroxysmal Atrial Flutter Referrals: Jonel Rashid MD [STAFF PHYSICIAN] - Keep Ujani appoi ntment Additional Instructions: Increase amiodarone to 200 mg once a day. What to do if you have Problems For any increased pain, shortness of breath, bleeding, nausea or vomiting, chest pain, or an y unexpected problems, contact your Primary Care Provider. Call [facility] ([phone]) or report to the closest Emergency Room. Call 911 if necessary. 09/29/17 6824 <Electronically si gned by Jignesh Tello MD> Date Jignesh Tello MD Cosigner Signature (If Indicated): Date CC: Nia Uriostegui DO 29-Sep-2017 Chest 1 View (Portable) Result: Comments: See Note; NOTES: [facility] Imaging Services [address] [place] [address] Chest 1 View (Portable) MR#: [id number] Acct: [id number] Name: COMFORT OLSON Rep #: [id number] : 1940 F 76 From: John Babcock MD PCP: Nia Uriostegui DO Status: REG ER Study: Chest 1 View (Portable) Date of Exam: 09/29/17 Exam# [id number] Ordering Dr: Jignesh Tello MD STUDY: X-RAY [...] John Babcock MD at 9:55 EDT Tel [phone], Service support , CC: Nia Uriostegui DO; Jignesh Tello MD Splitting Machine Operator Helper: Signed 25-Sep-2017 Cardiology Visit Report Result: Comments: See Note; NOTES: [facility] [address] [place] [address] OFFICE VISIT Date of Service: 09/25/17 MR#: [id number] Acct: [id number] Name: COMFORT OLSON p #: [id number] : 1940 Provider: Jonel Rashid MD Age/Sex: 76/F Location: [facility] Status: Signed HPI HPI Chief Complaint: Follow [...] brachial Intake Visit Reasons: 6 M FU Electric Cell Tender Required: No Accompanied by: nonw Is patient [...] BID 08/24/17 [History Confirmed 09/25/17] Met hscopolamine [place] 5 mg PO BID 08/24/17 [History Confirmed [...] PO QDAY tab 09/25/17 [History Confirmed 09/25/17] [facility] Medical History Other secondary pulmonary hypertension (Chronic) Cardiomyopathy in diseases classified elsewhere (Chronic) Other cerebral infarction (Chronic) Paroxysmal atrial fibrillation (Chroni c) Atrial enlargement, 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 4. Atherosclerosis of [place] coronary artery of [place] heart without angina pectoris I25.10 08/06/2004 CA BG x2 VILLAGRAN side to side to second Diagonal and end to side to Anterior Descending artery in Sequential fashion. 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 transplan joel heart: [place] heart Mixed hyperlipidemia E78.2 Hyperlipidemia type: mixed hyperlipidemia Coding Level of Care Code Off vis,est,level 4 Diagnoses Paroxysmal atrial fibrillation I48.0 Cardiomyopath y in diseases classified elsewhere I43 Essential hypertension I10 Hypertension type: essential hypertension Atherosclerosis of [place] coronary artery of [place] heart without angina pectoris I25.10 [place] vs. transplanted heart: [place] heart Mixed hyperlipidemia E78.2 Hyperlipidemia type: mixed hyperlipidemia 09/25/17 1029 <Electronically signed by Jonel Rashid MD> Date __ Jonel Rashid MD Cosigner Signature: Date (if applicable) CC: Nia Uriostegui DO 26-Aug-2017 12 Lead Electrocardiogram Result: Comments: See Note; NOTES: [facility] Cardiovascular Services [address] [place] [address] 12 Lead EKG 08/24/17 1336 MR#: [id number] Acct: [id number] Name: COMFORT OLSON Rep # : [id number] : 1940 76 From: Jonel Rashid MD [...] Abnormal ECG Confirmed by JONEL RASHID MD ([id number]), editor & co founder AMIRA CASTRO ([id number]) on 08/26/2017 1:37:24 PM Referred B y: YONI Confirmed By:JONEL RASHID MD 08/26/17 1337 Date Jonel Rashid MD CC: Nia Uriostegui DO; Alexis Kemp MD Signed 26-Aug-2017 12 Lead Electrocardiogram Result: Comments: See Note; NOTES: [facility] Cardiovascular Services [address] [place] [address] 12 Lead EKG 08/24/17 0956 MR#: [id number] Acct: [id number] Name: COMFORT OLSON Rep # : [id number] : 1940 76 From: Jonel Rashid MD [...] Abnormal ECG Confirmed by JONEL RASHID MD ([id number]), editor & co founder AMIRA CASTRO ([id number]) on 08/26/2017 12:50:18 PM Referred By: YONI Confirmed By:JONEL RASHID MD 08/26/17 1250 Date Jonel Rashid MD CC: Nia Uriostegui DO; Alexis Kemp MD Signed 24-Aug-2017 Emergency Department Summary Result: Comments: See Note; NOTES: [facility] Medical Records Department [address] [place] [address] Emergency Department Summary 08/24/17 1336 MR#: [id number] Acct: [id number] Name: COMFORT OLSON Rep #: [id number] : 1940 76 From: Alexis Kemp MD [...] coronary disease This note was generated with Clifford Thames dictation software. It may contain in correct [...] your Primary Care Provider. Call [facility] ([phone]) or report to the [facility] Emergency Room. Call 911 if necessary. 08/24/17 1340 <Electronically signed by Alexis Kemp MD> Date Alexis Kemp MD Cosigner Signatu re (If Indicated): Date CC: Jonel Rashid MD; Nia Uriostegui DO 24-Aug-2017 Chest PA and Lateral Result: Comments: See Note; NOTES: [facility] Imaging Services [address] [place] [address] Chest PA and Lateral MR#: [id number] Acct: [id number] Name: COMFORT OLSON Rep #: [id number] : 1940 F 76 From: Clyde Matute MD PCP: Nia Uriostegui DO Status: REG ER Study: Chest PA and Lateral Date of Exam: 08/24/17 Exam# [id number] Ordering Dr: Alexis Kemp MD STUDY: X-RAY [...] CC: Nia Uriostegui DO; Alexis Kemp MD Splitting Machine Operator Helper: Signed 02-Jun-2017 12 Lead EKG performed by [facility]MS Result: Comments: See Note; NOTES: [facility] [address] [address] 12 Lead EKG performed by BMS 06/02/171120 MR#: [id number] Acct: [id number] Name: COMFORT OLSON Rep #: [id number] : 1940 76 From: Annemarie BLOOD Attending Dr: Annemarie Parsons Status: DEP AMB Ordering Dr: Annemarie Parsons Date: 06/02/17 Location: [facility] Sex: F C Admitted: BMS/12 Lead EKG performed by [facility] ECG Report Interpretation Sinus Rhythm -Intraventricular conduction defect and left axis -possible anterior fas cicular block consider ventricular hypertrophy. - Nonspecific T-abnormality. ABNORMAL Electronically signed on 06/04/2017 at 14:14 by Jonel Rashid 06/04/17 1415 Date Annemarie BLOOD CC: Nia Uriostegui DO Date Dictated: 06/02/171120 Date Transcribed: 06/02/171120 Splitting Machine Operator Helper: BARBY Signed 29-May-2017 Cardiology Visit Report Result: Comments: See Note; NOTES: [facility] [address] [place] [address] OFFICE VISIT Date of Service: 05/26/17 MR#: [id number] Acct: [id number] Name: CMOFORT OLSON Re p #: [id number] : 1940 Provider: Annemarie Parsons Age/Sex: 76/F Location: [facility] Status: Signed HPI HPI Details: COMFORT OLSON, [...] surgery in 2004. She had an VILLAGRAN [id number]-[id number]-kkki to second diagonal and to anterior descending [...] (BMI) 33.3 Intake Visit Reasons: per Susi Electric Cell Tender Required: No Accompanied by: NONE Is patient [...] PO DAILY 11/11/16 [History Confirmed 05/26/17] Methscopolamine Toledo 5 mg PO BID 11/11/16 [History Confirmed [...] enlargement, left (Chronic) Atherosclerotic heart disease of [place] coronary artery without angina pectoris (Chronic) [...] week for an EKG. 2. Atherosclerosis of [place] coronary artery of [place] heart without angina pectoris I25.10 08/06/2004 CABG x2 VILLAGRAN side to side to second Diagonal and end to side to Anterior [place] cending artery in Sequential fashion. [facility]: 08/01/2004; 10/15/2011 Plan - JEREMI Mcpherson . [...] 1 Week (EKG) 05/26/17 (keep appt with RUBBER VULCANIZING 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) Coding Level of Care Code Off vis,est,level 4 Diagnos es Dyspnea on exertion R06.09 Atherosclerosis of [place] coronary artery of [place] heart without angina pectoris I25.10 [place] vs. transplanted heart: [place] heart Essential hypertension I10 Hypertension type: essential hypertension Mixed hyperlipidemia E78.2 Hyperlipidemia type: mixed hyperlipidemia Paroxysmal atrial fibrillation I48.0 Atrial fibrillation type: paroxysmal Coding Level of Care Code O ff vis,est,level 4 Diagnoses Dyspnea on exertion R06.09 Atherosclerosis of [place] coronary artery of [place] heart without angina pectoris I25.10 [place] vs. transplanted heart: [place] heart Essential hy pertension I10 Hypertension [...] by BMS Result: Comments: See Note; NOTES: [facility] [address] [place] [address] 12 Lead EKG performed by [facility] 05/26/17 1521 MR#: [id number] Acct: [id number] Name: COMFORT OLSON Rep #: [id number] : 1940 76 From: Annemarie BLOOD Attending Dr: Annemarie Parsons Status: DEP AMB Ordering Dr: Annemarie Parsons Date: 05/26/17 [place] [facility] [place] F C Admitted: [facility]/12 Lead EKG performed by [facility] ECG Report Interpretation Marked sinus Bradycardia -Poor R-wave progression - nonspecific -consider old anterior infarct. -Nonspecific ST depression -Nondiagnostic. ABNORMAL Electronically signed on 05/27/2017 at 08:40 by Jonel Rashid 05/27/17 0841 Date Annemarie BLOOD CC: Nia Uriostegui DO Date Dictated: 05/26/17 152 Date Transcribed: 05/26/171520 Splitting Machine Operator Helper: BARBY Signed 16-May-2017 Office Visit Report Result: Comments: See Note; NOTES: [facility] [place] [address] OFFICE VISIT Date of Service: 05/16/17 MR#: [id number] Acct: [id number] Patient: COMFORT OLSON Rep #: [id number] : 1940 Provider: Jonel Rashid MD Age/Sex: 76/F [place] [facility] [place]: Signed Intake Intake Visit Reasons: [...] SON Y 11/11/16 [History Confirmed 05/14/17] Methscopolamine [place] 5 mg PO BID 11/11/16 [History Confirmed [...] Orozco 16-May-2017 12 Lead EKG performed by [facility] Result: Comments: See Note; NOTES: [facility] [address] [place] [address] 12 Lead EKG performed by [facility] 05/16/17 1044 MR#: [id number] Acct: [id number] Name: COMFORT OLSON Rep #: [id number] : 1940 76 From: Annemarie BLOOD Attending Dr: Gay ROSAS,Jonel Status: DEP AMB Ordering Dr: Annemarie Parsons Date: 05/16/17 Location: [facility] Sex: F C Adm itted: [facility]/12 Lead EKG performed by [facility] Sinus Bradycardia -Poor R-wave progression -may be secondary to pulmonary isease consider old anterior infarct. Rightward P/QRS axis and rota tion possible pulmonary disease. ABNORMAL 05/16/171649 <Electronically signed by Annemarie BLOOD> Date Annemarie BLOOD CC: Nia Uriostegui DO Date Dictated: 05/16/171043 Date Transcribed: 05/16/171043 Splitting Machine Operator Helper: MMKasia Signed 16-May-2017 12 Lead EKG performed by [facility] Result: Comments: See Note; NOTES: [facility] [address] [place] [address] 12 Lead EKG performed by BMS 05/16/174 MR#: [id number] Acct: [id number] Name: COMFORT OLSON Rep #: [id number] : 1940 76 From: Annemarie BLOOD Attending Dr: Gay ROSAS,Jonel Status: DEP AMB Ordering Dr: Annemarie Parsons Date: 05/16/17 Location: [facility] Sex: F C Adm itted: [facility]/12 Lead EKG performed by [facility] ECG Report Interpretation Sinus Bradycardia -Poor R-wave progression -may be secondary to pulmonary disease conside r old anterior infarct. Rightward P/QRS axis and rotation -possible pulmonary disease. ABNORMAL Electronically signed on 05/17/2017 at 18:31 by Jonel Rashid 05/17/17 1834 Date Annemarie BLOOD CC: Nia Uriostegui DO Date Dictated: 05/16/171043 Date Transcribed: 05/16/17 104 Splitting Machine Operator Helper: MMM Signed 14-May-2017 Cardiology Visit Report Result: Comments: See Note; NOTES: [facility] [address] [place] [address] OFFICE VISIT Date of Service: 05/14/17 MR#: [id number] Acct: [id number] Name: COMFORT OLSON Re p #: [id number] : 1940 Provider: Annemarie Parsons Age/Sex: 76/F Location: [facility] Status: Signed HPI HPI Details: COMFORT OLSON, is a 76 F who presents to the office today for an urgent appointm ent for increased shortness of breath. Patient does have a hospital of coronary artery disease with bypass surgery in 2004. 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 Ath erosclerosis of [place] coronary artery of [place] heart without angina pectoris I25.10 08/06/2004 CABG x2 VILLAGRAN side to side to second Diagonal and end to side to Anterior Descending artery in Sequential fashion. [facility]: 08/01/2004; 10/15/2011 Plan - JEREMI Mcpherson Stable, [...] Diagnoses Paroxysmal atrial fibrillation I48.0 Atherosclerosis of [place] coronary artery of [place] heart without angina pectoris I25.10 [place] vs. transplanted heart: [place] heart Essential hy pertension I10 Hypertension type: essential hypertension Mixed hyperlipidemia E78.2 Hyperlipidemia type: mixed hyperlipidemia Coding Level of Care Code Off vis,est,level 4 Diagnoses Paroxysmal atrial fibrillation I48.0 Atherosclerosis of [place] coronary artery of [place] heart without angina pectoris I25.10 [place] vs. transplanted heart: [place] heart Essential hypertension I10 Hypertension type: ess ential hypertension Mixed hyperlipidemia E78.2 Hyperlipidemia type: mixed hyperlipidemia 05/14/17 1718 <Electronically signed by Annemarie BLOOD> Date Annemarie BLOOD 05/14/17 1732<Electronically signed by Jonel Rashid MD> Cosigner Signature: Date (if applicable) Jonel Rashid MD CC: Nia Uriostegui DO 14-May-2017 12 Lead EKG performed by [facility] Result: Comments: See Note; NOTES: [facility] [address] [place] [address] 12 Lead EKG performed by [facility] 05/14/17 1104 MR#: [id number] Acct: [id number] Name: COMFORT OLSON Rep #: [id number] : 1940 76 From: Annemarie BLOOD Attending Dr: Annemarie Parsons Status: DEP AMB Ordering Dr: Annemarie Parsons Date: 05/14/17 Location: [facility] Sex: F C Admitted: [facility]/12 Lead EKG performed by [facility] Marked sinus Bradycardia -Intraventricular conduction defect -consider left entricular hypertrophy. -Lateral infarct -age undetermined. - -abnormality -Possible Inferior and lateral ischemia. ABNORMAL 05/15/17 1041 <Electronically signed by Annemarie BLOOD> Date M farhan BLOOD CC: Nia Uriostegui DO Date Dictated: 05/14/171103 Date Transcribed: 05/14/171103 Splitting Machine Operator Helper: BARBY Signed 14-May-2017 12 Lead EKG performed by BMS Result: Comments: See Note; NOTES: [facility] [address] [place] [address] 12 Lead EKG performed by [facility]MS 05/14/171103 MR#: [id number] Acct: [id number] Name: COMFORT OLSON Rep #: [id number] : 1940 76 From: Annemarie BLOOD Attending Dr: Annemarie Parsons Status: DEP AMB Ordering Dr: Annemarie Parsons Date: 05/14/17 [place] [facility] [place]: F C Admitted: [facility]/12 Lead EKG performed by [facility] ECG Report Interpretation Marked sinus Bradycardia -Intraventricular conduction defect -consider left ventricul ar hypertrophy. -Lateral infarct -age undetermined. - T-abnormality -Possible Inferior and lateral ischemia. ABNORMAL Electronically signed on 05/17/2017 at 18:31 by Jonel Rashid 05/17/17 1834 Date __ Annemarie BLOOD CC: Nia Uriostegui DO Date Dictated: 05/14/171103 Date Transcribed: 05/14/171103 Splitting Machine Operator Helper: BARBY Signed 09-May-2017 Office Visit Report Result: Comments: See Note; NOTES: [facility] [address] [place] [address] OFFICE VISIT Date of Service: 05/09/17 MR#: [id number] Acct: [id number] Patient: COMFORT OLSON Rep #: [id number] : 1940 Provider: Albert Kerr RN Age/Sex: 76/F Location: [facility] Status: Signed Intake Intake Visit Reasons: EKG 4 wk s/p per RUBBER VULCANIZING 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 Allergies No Known Allergies Allergy (Verified 05/04 [...] PO DAILY 11/11/16 [History Confirmed 04/19/17] Methscopolamine [place] 5 mg PO BID 11/11/16 [History Confirmed [...] Seaman 09-May-2017 12 Lead EKG performed by [facility] Result: Comments: See Note; NOTES: [facility] [address] [place] [address] 12 Lead EKG performed by [facility] 05/09/17 1110 MR#: [id number] Acct: [id number] Name: COMFORT OLSON Rep #: [id number] : 1940 76 From: Jonel Rashid MD Attending Dr: Albert Kerr RN Status: DEP AMB Ordering Dr: Jonel Rashid MD Date: 05/09/17 Location: [facility] Sex: F C Admitted: [facility]/12 Lead EKG performed by [facility] ECG Report Interpretation Sinus Rhythm -Nonspecific QRS widening and anterior fascicular block. -Poor R-wave progression -nonspec ific -consider old anterior infarct. -Nonspecific ST depression -Nondiagnostic. ABNORMAL Electronically signed on 05/17/2017 at 18:31 by Jonel Rashid 05/17/17 1834 Date Jonel Rashid MD CC: Nia Uriostegui DO Date Dictated: 05/09/17 1110 Date Transcribed: 05/09/17 1110 Splitting Machine Operator Helper: CO Signed 09-May-2017 12 Lead EKG performed by BMS Result: Comments: See Note; NOTES: [facility] [address] [place] [address] 12 Lead EKG performed by [facility] 05/09/17 1110 MR#: [id number] Acct: [id number] Name: COMFORT OLSON Rep #: [id number] : 1940 76 From: Jonel Rashid MD Attending Dr: Albert Kerr RN Status: DEP AMB Ordering Dr: Jonel Rashid MD Date: 05/09/17 Location: [facility] Sex: F C Admitted: [facility]/12 Lead EKG performed by [facility] Sinus Rhythm -Nonspecific QRS widening and anterior fascicular block. -Poor -wave progression -nonspecific -consider old anterior infarct. -Nonspecific T d epression -Nondiagnostic. ABNORMAL 05/09/17 1610 <Electronically signed by Jonel Rashid MD> Date Jonel Rashid MD CC: Nia Rice Date Dictated: 05/09/17 1110 Date Transcribed: 05/09/17 111 Splitting Machine Operator Helper: CO Signed 06-May-2017 12 Lead Electrocardiogram Result: Comments: See Note; NOTES: [facility] Cardiovascular Services [address] [place] [address] 12 Lead EKG 05/04/17 2237 MR#: [id number] Acct: [id number] Name: COMFORT OLSON Rep # : [id number] : 1940 76 From: Jonel Rashid MD [...] Confirmed by JONEL RASHID MD ([id number]), editor & co founder AMIRA CASTRO ([id number]) on 05/06/2017 1:42:52 PM Referred By: DONY Confirmed By:JONEL RASHID MD 05/06/17 1342 Date Jonel Rashid MD CC: Natalya Napoles MD; Nia Uriostegui DO Signed 06-May-2017 12 Lead Electrocardiogram Result: Comments: See Note; NOTES: [facility] Cardiovascular Services [address] [place] [address] 12 Lead EKG 05/04/17 2045 MR#: [id number] Acct: [id number] Name: COMFORT OLSON Rep # : [id number] : 1940 76 From: Jonel Rashid MD [...] Confirmed by JONEL RASHID MD ([id number]), editor & co founder AMIRA CASTRO (56) on 05/06/2017 1:08:29 PM Referred By: RICKY NAPOLES Confirmed By:JONEL RASHID MD 05/06/17 1308 Date Jonel Rashid MD CC: Natalya Napoles MD; Nia Uriostegui DO Signed 04-May-2017 Emergency Department Summary Result: Comments: See Note; NOTES: [facility] Medical Records Department [address] [place] [address] Emergency Department Summary 05/04/17 2259 MR#: [id number] Acct: [id number] Name: COMFORT OLSON Rep #: [id number] : 1940 76 From: Natalya Napoles MD [...] ED physician This note was generated with Clifford Thames dictation software. It may contain incorre ct words, spelling, and punctuation that were not noted in review of the chart prior to signing ED Disposition - Plan for ED Patient: Chief Complaint: Palpitations Referrals: Nia Uriostegui, [[facility] Care Provider] - What to do if you have Problems For any increased pain, shortness of breath, bleeding, nausea or vomiting, chest pain, or any unexpected problems, contact your Primary Care Pro vider. Call [facility] ([phone]) or report to the closest Emergency Room. Call 911 if necessary. 05/04/17 1297 <Electronically signed by Natalya Napoles MD> Date Natalya Napoles MD Cosigner Signature (If Indicated): Date CC: Nia Uriostegui DO 04-May-2017 Discharge Instruction Result: Comments: See Note; NOTES: [facility] Medical Records Department [address] [facility] [place] [address] Discharge Instruction 05/04/172339 MR#: [id number] Acct: [id number] Name: Liyah OLSON Rep #: [id number] : 1940 76 From: Natalya Napoles MD [...] your Primary Care Provider. Call [facility] ([phone]) or report to the closest Emergency Room. Call 911 if necessary. 05/04/172340 <Electronically signed by Natalya Napoles MD> Date Natalya mary MD Cosigner Signature (If Indicated): Date CC: Nia Moody [place] 04-May-2017 Chest 1 View (Portable) Result: Comments: See Note; NOTES: [facility] Imaging Services [address] [place] [address] Chest 1 View (Portable) MR#: [id number] Acct: [id number] Name: COMFORT OLSON Rep #: [id number] : 1940 F 76 From: Rafael Perez MD PCP: Nia Uriostegui DO Status: REG ER Study: Chest 1 View (Portable) Date of Exam: 05/04/17 Exam# [id number] Ordering Dr: Natalya Napoles MD STUDY: X [...] CC: Natalya Napoles MD; Nia Uriostegui DO Splitting Machine Operator Helper: Signed 19-Apr-2017 Emergency Department Summary Result: Comments: See Note; NOTES: [facility] Medical Records Department [address] [place] [address] Emergency Department Summary 04/19/17 1757 MR#: [id number] Acct: [id number] Name: COMFORT OLSON Rep #: [id number] : 1940 76 From: Deisi Ryan MD [...] with RVR This note was generated with Mpayy software. It may contain incorrect words, spelling, [...] blems, contact your Primary Care Provider. Call [facility] ([phone]) or report to the closest Emergency Room. Call 911 if necessary. 04/19/171930 <Electronically signed by Deisi moscoso MD> Date Deisi Ryan MD Cosigner Signature (If Indicated): Date CC: Nia Uriostegui DO 19-Apr-2017 Chest 1 View (Portable) Result: Comments: See Note; NOTES: [facility] Imaging Services [address] [place] [address] Chest 1 View (Portable) MR#: [id number] Acct: [id number] Name: COMFORT OLSON Rep #: [id number] : 1940 F 76 From: Thanh Ambriz MD PCP: Nia Uriostegui DO Status: PRE ER Study: Chest 1 View (Portable) Date of Exam: 04/19/17 Exam# [id number] Ordering Dr: Deisi Ryan MD STUDY: X- [...] CC: Deisi Ryan MD; Nia Uriostegui DO Splitting Machine Operator Helper: Signed 14-Mar-2017 Cardiology Visit Report Result: Comments: See Note; NOTES: [facility] [address] [place] [address] OFFICE VISIT Date of Service: 03/14/17 MR#: [id number] Acct: [id number] Name: COMFORT OLSON p #: [id number] : 1940 Provider: JOSSELYN Lombardo Age/Sex: 76/F Location: [facility] Status: Signed HPI 3 M FU: Details: [...] less than 30% stenosis. 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 3. Atheroscle rosis of [place] coronary artery of [place] heart without angina pectoris I25.10 08/06/2004 CABG x2 VILLAGRAN side to side to second Diagonal and end to side to Anterior Descending artery in Sequential fashion . [facility]: 08/01/2004; 10/15/2011 SEEMA Pan Patient's most recent [...] to sa ving. Follow Up 6 Months (RUBBER VULCANIZING 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) Coding Level of Care Code Off vis,est,level 3 Diagnoses Essential hypertension I10 Hypertension type: essential hypertension Cardiomyopathy in diseases classified elsew here I43 Atherosclerosis of [place] coronary artery of [place] heart without angina pectoris I25.10 [place] vs. transplanted heart: [place] heart Paroxysmal atrial fibrillation I48.0 Mixed hyperlipidemia E7 8.2 Hyperlipidemia type: mixed hyperlipidemia Coding Level of Care Code Off vis,est,level 3 Diagnoses Essential hypertension I10 Hypertension type: essential hypertension Cardiomyopathy in diseases c lassified elsewhere I43 Atherosclerosis of [place] coronary artery of [place] heart without angina pectoris I25.10 [place] vs. transplanted heart: [place] heart Paroxysmal atrial fibrillation I48.0 Mixed hy perlipidemia E78.2 Hyperlipidemia type: mixed hyperlipidemia 03/14/17 1154 <Electronically signed by Richard Lombardo SUGAR BOILER-C> Date Richard Lombardo SUGAR BOILER-C 03/14/17 1527<Electronically signed by Jonel Rashid MD> Cosigner Signature: Date (if applicable) Jonel Rashid MD CC: Nia Uriostegui DO 10-Mar-2017 Echo, Complete w/ Contrast Result: Comments: See Note; NOTES: [facility] Cardiovascular Services [address] [facility] [place] [address] Echo Complete W/ Contrast 03/10/17 1008 MR#: [id number] Acct: [id number] Name: COMFORT JONES Rep #: [id number] : 1940 76 From: Jonel Rashid MD Attending Dr: Gay ROSAS,Jonel Status: REG CLI Ordering Dr: Jonel Rashid MD Date: 03/10/17 Location: [facility] Sex: F C Admitted: [...] 03/10/17 1008 Date Transcr ibed: 03/10/17 1412 Splitting Machine Operator Helper: Signed 13-Nov-2016 CTA Chest W/WO Contrast Result: Comments: See Note; NOTES: [facility] Imaging Services [address] [place] [address] CTA Chest W/WO Contrast MR#: [id number] Acct: [id number] Name: COMFORT OLSON Rep #: [id number] : 1940 F 75 From: Charly Almendarez DO PCP: Nia Uriostegui DO Status: REG ER Study: CTA Chest W/WO Contrast Date of Exam: 11/13/16 Exam# [id number] Ordering Dr: Emery Allen MD STUDY: CTA [...] CC: Emery Allen MD; Nia Uriostegui DO Splitting Machine Operator Helper: Signed 11-Nov-2016 Chest 1 View (Portable) Result: Comments: See Note; NOTES: [facility] Imaging Services [address] [place] [address] Chest 1 View (Portable) MR#: [id number] Acct: [id number] Name: COMFORT OLSON Rep #: [id number] : 1940 F 75 From: Jorge Herman MD PCP: Nia Uriostegui DO Status: REG ER Study: Chest 1 View (Portable) Date of Exam: 11/11/16 Exam# [id number] Ordering Dr: Jignesh Tello MD STUDY: X-RA [...] CC: Nia vo DO; Jignesh Tello MD Splitting Machine Operator Helper: Signed 16-Jan-2016 Chest PA and Lateral Result: Comments: See Note; NOTES: [facility] Imaging Services [address] [place] [address] Verda 4d Chest PA and Lateral MR#: [id number] Acct: [id number] Name: COMFORT OLSON Rep #: [id number] : 1940 F 75 From: John Babcock MD PCP: Balbir Cramer Status: REG CLI Study: Chest PA and Lateral Date of Exam: 01/16/16 Exam# [id number] Ordering Dr: Balbir Cramer STUDY: X-RAY CHEST [...] John Babcock MD at 13:26 EST Tel [phone], Service support , CC: Balbir Cramer Splitting Machine Operator Helper: Signed 14-Dec-2014 Bilat Scrn Digital AND CAD Result: Comments: See Note; NOTES: [facility] Imaging Services [address] [place] [address] Verdana 4d Bilat Scrn Digital AND CAD MR#: [id number] Acct: [id number] Name: COMFORT OLSON Rep #: [id number] : 1940 F 74 From: John Babcock MD PCP: Maylin Melendez DO Status: REG CLI Study: Bilat Scrn Digital AND CAD Date of Exam: 12/14/14 Exam# [id number] Ordering D r: Maylin Melendez DO MAMMOGRAPHY [...] John Babcock MD at 14:05 EST Tel [phone], Service support [phone], CC: Maylin Melendez DO Splitting Machine Operator Helper: Signed 14-Dec-2014 Carotid Duplex Ultrasound Result: Comments: See Note; NOTES: [facility] Cardiovascular Services [address] [place] [address] Carotid Duplex Ultrasound 12/12/14 1007 MR#: [id number] Acct: [id number] Name: COMFORT OLSON Rep #: [id number] : 1940 74 From: Darian Anderson MD Attending Dr: Maylin Melendez DO Status: REG CLI Ordering Dr: Maylin Melendez DO Date: 12/12/14 Location: [facility] Sex: F C Admi [...] the left vertebral artery. Procedure Carotid Duplex 86252. Exam performed in department. Interpreta tion Summary [...] Dictated: 12/12/14 1007 Date Transcribed: 12/14/14 0737 Splitting Machine Operator Helper: Signed 25-Apr-2014 Nuclear Stress Test - Chemical Result: Comments: See Note; NOTES: [facility] Imaging Services [address] [place] [address] Nuclear Medicine Report MR#: [id number] Acct: [id number] Name: COMFORT OLSON Rep #: [id number] : 1940 F 73 From: Jonel Rashid MD PCP: Maylin Melendez DO Status: REG CLI Study: Nuclear Stress Test - Chemical Date of Exam: 04/25/14 Exam# [id number] Ordering Dr: Jonel Rashid MD P HARMACOLOGIC [...] CC: Jonel Rashid MD; Maylin Melendez DO Splitting Machine Operator Helper: CALIX Signed 31-Jan-2014 Spirometry (58163) Comments: Moderate restriction similar to previous Result: 14-Jan-2014 Chest PA and Lateral Result: Comments: See Note; NOTES: [facility] Imaging Services [address] [place] [address] Radiology Report MR#: [id number] Acct: [id number] Name: COMFORT OLSON Rep #: [id number] : 1940 F 73 From: John Babcock MD PCP: Maylin Melendez DO Status: REG CLI Study: Chest PA and Lateral Date of Exam: 01/14/14 Exam# [id number] Ordering Dr: Sherrie Amor STUDY: X-RAY CH [...] John Babcock MD at 14:58 EST Tel [phone], Service support [phone], RAD/Chest PA and Lateral IMPRESSION: Mild increased markings at the lung bases suggestive of linear atelectasis. Electronica lly Signed: John Babcock MD at 14:58 EST Tel [phone], Service support [phone], CC: Sherrie Aomr; Maylin Melendez DO Splitting Machine Operator Helper: Signed 07-Sep-2013 Knee 4 or More Views Result: Comments: See Note; NOTES: [facility] Imaging Services [address] [place] [address] Radiology Report MR#: [id number] Acct: [id number] Name: COMFORT OLSON Rep #: [id number] : 1940 F 72 From: Yusuf Lopes PCP: Maylin Melendez DO Status: REG CLI Study: Knee 4 or More Views Date of Exam: 09/07/13 Exam# [id number] Ordering Dr: Maylin Melendez DO STUDY: X-RAY [...] Yusuf Lopes MD at 4:00 EDT Tel [phone] , Service support [phone] , CC: Maylin Melendez DO Splitting Machine Operator Helper: Signed 22-Aug-2013 Carotid Duplex Ultrasound Result: Comments: See Note; NOTES: [facility] Cardiovascular Services [address] [place] [address] Carotid Duplex Ultrasound 08/20/13 0945 MR#: [id number] Acct: [id number] Nam e: COMFORT OLSON Rep #: [id number] : 1940 72 From: Darian Anderson MD [...] the left vertebral artery. Procedure Carotid Duplex 74015. Exam performed in [facility] ent. Interpretation Summary Mild (<50%) stenosis right extracranial internal carotid. Mild (<50%) stenosis left extracranial internal carotid. Flow within the vertebral arteries is antegrade bilaterally. Ordering Physician: Maylin Melendez Performed By: Sanaz Sheth RVT : Maylin Melendez DO Date Dictated: 08/20/13 0945 Date Transcribed: 08/22/13 0848 Splitting Machine Operator Helper: Signed 09-Jul-2013 Chest PA and Lateral Result: Comments: See Note; NOTES: [facility] Imaging Services [address] [place] [address] Radiology Report MR#: [id number] Acct: [id number] Name: COMFORT OLSON Rep #: [id number] : 1940 F 72 From: Jermaine Khan DO PCP: Maylin Melendez DO Status: REG CLI Study: Chest PA and Lateral Date of Exam: 07/09/13 Exam# [id number] Ordering Dr: Sherrie Amor STUDY: X-RAY CHEST [...] Jermaine Khan DO at 22:50 EDT Tel [phone] , Service support [phone], CC: Sherrie Amor; Maylin Melendez DO Splitting Machine Operator Helper: Signed 08-Jan-2013 PT Discharge Summary Result: Comments: See Note; NOTES: [facility] Physical Therapy Health[address] [place] [address] Fax REHABILITATION SERVICES DISCHARGE SUMMARY MR#: [id number] Acct: [id number] Name: COMFORT OLSON Rep #: [id number] : 1940 72 From: Farrukh Hull Referring [...] has. Farrukh Hull, PT T: NTS JOB: [id number] <Electronically signed by Farrukh Hull > 01/08/13 0648 CC: * Signed 18-Dec-2012 Inital Evaluation - PT Result: Comments: See Note; NOTES: [facility] Physical Therapy Healthpoint [facility]. [address] [place] [address] Fax REHABILITATION SERVICES INITIAL EVALUATION MR#: [id number] Acct: [id number] Name: COMFORT OLSON Rep #: [id number] : 1940 72 From: Farrukh Hull Referring Dr.: Maylin Melendez DO Status: REG RCR Insurance: MEDICARE PAR T A B Eval Date: BI APPLICATION DEVELOPER BENEFIT PLAN DATE OF SERVICE: 12/18/2012 PHYSICIAN: [...] She has dizziness wi th left-sided Hallpike [place] test. No obvious nystagmus. Right- sided Hallpike [place] test is positive for dizziness of approximately [...] was agreeable to this course of therapy. Farrkuh Hull, PT T: NTS JOB: [id number] <Electronically signed by Farrukh Hull > 12/18/12 1151 CC: Signed For Medicare only, by signing this I certify the plan of care. 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 criteria.Please note revised GLUCOSE reference range jzmkwkbhe29/02/2018. 8-Hin-893709:42 HgA1C , Office (27478) HgA1C , Office 7.1 % (Normal) Range: 4.6 - 7.1 :42 Blood Glucose , Office (19147) Blood Glucose , Office 135 (Normal) :55 Basic Metabolic Profile (BMP) Comments: [facility] [address] [place], [address] GAP 14 (Normal) Range: 5-15 CO2 23.0 [...] A.D.A. criteria.Please note revised GLUCOSE reference range arlqhzvzq54/02/2018. :55 CBC W/Diff, Automated Comments: [facility] [address] [place], [place], [address] Absolute Lymph 2.08 {X10_3/ul} (Normal) Range: 0.83-4.51 [...] 4.2-5.4 WBC 8.7 K/mm3 (Normal) Range: 4.4-11.0 42-Hef-00480:55 Troponin-I Comments: [facility] [address] [place], [place], [address] TROPONIN-I < 0.015 ng/mL (Normal) Comments: TROPONIN-I EXPECTED VALUES <0.045 Negative 0.045 - 0.590 Consistent with Cardiac Damage > OR = 0.600 Critical Value Not every elevated troponin is indicative of LA. T hesevalues should be used with clinical judgement in examiningthe patient's clinical picture for diagnosis. To establisha diagnosis of LA versus myocardial injury, there must be ademonstrated rise and/ or fall in the troponin values, inaddition to ischemic symptoms, EKG changes, new regionalwall motion abnormality, and/or angiographical evidence. PLEASE NOTE: REFERENCE RANGES EDITED 06/23/1729-Sep-20179:05 Basic Metabolic Profile (BMP) Comments: [facility] [address] [place], [place], [address] GAP 8 (Normal) Range: 5-15 CO2 28.0 [...] A.D.A. criteria.Please note revised GLUCOSE reference range emevfmpky57/02/2018. 21-Kjt-27544:05 CBC W/Diff, Automated Comments: [facility] [address] [place], [place], [address] Absolute Lymph 2.24 {X10_3/ul} (Normal) Range: 0.83-4.51 [...] 4.2-5.4 WBC 8.3 K/mm3 (Normal) Range: 4.4-11.0 02-Jjb-04699:05 Troponin-I Comments: [facility] [address] [place], [place], [address] TROPONIN-I 0.020 ng/mL (Normal) Comments: TROPONIN-I EXPECTED VALUES <0.045 Negative 0.045 - 0.590 Consistent with Cardiac Damage > OR = 0.600 Critical Value Not every elevated troponin is indicative of LA. T hesevalues should be used with clinical judgement in examiningthe patient's clinical picture for diagnosis. To establisha diagnosis of LA versus myocardial injury, there must be ademonstrated rise and/ or fall in the troponin values, inaddition to ischemic symptoms, EKG changes, new regionalwall motion abnormality, and/or angiographical evidence. PLEASE NOTE: REFERENCE RANGES EDITED 06/23/1727-Aug-201725-Bmb-076044:18 HgA1C , Office (40163) HgA1C , Office 7.6 % (Abnormal) Range: 4.6 - 7.1 72-Adh-149169:18 Blood Glucose , Office (26963) Blood Glucose , Office 142 (Normal) :51 Basic Metabolic Profile (BMP) Comments: [facility] [address] [place], [place], [address] GAP 9 (Normal) Range: 5-15 CO2 25.0 [...] A.D.A. criteria.Please note revised GLUCOSE reference range jnwxicgqy93/02/2018. :51 CBC W/Diff, Automated Comments: [facility] [address] [place], [place], [address] Absolute Lymph 2.43 {X10_3/ul} (Normal) Range: 0.83-4.51 [...] 4.2-5.4 WBC 9.6 K/mm3 (Normal) Range: 4.4-11.0 31-Muc-10189:51 Troponin-I Comments: [facility] [address] [place], [place], [address] TROPONIN-I < 0.015 ng/mL (Normal) Comments: TROPONIN-I EXPECTED VALUES <0.045 Negative 0.045 - 0.590 Consistent with Cardiac Damage > OR = 0.600 Critical Value Not every elevated troponin is indicative of LA. T hesevalues should be used with clinical judgement in examiningthe patient's clinical picture for diagnosis. To establisha diagnosis of LA versus myocardial injury, there must be ademonstrated rise and/ or fall in the troponin values, inaddition to ischemic symptoms, EKG changes, new regionalwall motion abnormality, and/or angiographical evidence. PLEASE NOTE: REFERENCE RANGES EDITED 06/23/1728-May-201753-Evu-564654:47 CALCIFEDIOL (84039) Comments: PATIENT NOT FASTINGPERFORMED BY: [facility] Tjgfaz5358 [facility] [id number] Vitamin D, 25-Hydroxy 20.2 ng/mL (Abnormal) Range: 30.0-100.0 Comments: Vitamin D deficiency has been defined by the [place] of[place]icine and an Endocrine Society practice guideline as alevel of serum 25-OH vitamin D less than 20 ng/mL (1,2).The Endocrine Society went on to further define vitamin Dinsufficiency as a level between 21 and 29 ng/mL (2).1. IOM ([place] of Medicine). 2010. Dietary reference intakes for calcium and D. [place]: The National Academies Press.2. Bobo MF, Estrellita STOCKTON, Maddi CALIX, et al. Evaluation, treatment, and prevention of vitamin D deficiency: an Endocrine Society clinical practice guideline. JCEM. 2010; 96(7):1911-30. 02-Gam-584750:47 VITAMIN B-12 (CYANOCOBALAMIN) Comments: PATIENT NOT FASTINGPERFORMED BY: [facility]CoR[facility] HealthCareQinyeh0386 [facility] [id number] (57625) Vitamin B12 311 pg/mL (Normal) Range: 232-1245 22-Yhm-867484:26 HgA1C , Office (05361) HgA1C , Office 7.3 % (Abnormal) Range: 4.6 - 7.1 98-Bkt-282743:26 Blood Glucose , Office (23336) Blood Glucose , Office 136 (Normal) 59-Tkb-822028:56 Basic Metabolic Profile (BMP) Comments: 'TROP' Serial specimen #1, #2, #3, or #4: [facility] [address]nsurq[address] [place], [place], [address] GAP 11 (Normal) Range: 5-15 CO2 27.0 [...] A.D.A. criteria.Please note revised GLUCOSE reference range kdgeuyaqm15/02/2018. 65-Xze-532126:56 CBC W/Diff, Automated Comments: [facility] [address] [place], [place], [address] Absolute Lymph 3.30 {X10_3/ul} (Normal) Range: 0.83-4.51 [...] 4.2-5.4 WBC 9.3 K/mm3 (Normal) Range: 4.4-11.0 27-Itr-015346:56 Troponin-I Comments: 'TROP' Serial specimen #1, #2, #3, or #4: [address] [place] [address] [address] [place], [place], [address] TROPONIN-I < 0.02 ng/mL (Normal) Comments: TROPONIN-I EXPECTED VALUES <0.05 NEGATIVE 0.06 - 0.59 AT RISK OF LA > OR = 0.60 SUGGEST LA 89-Jus-138253:33 Basic Metabolic Profile (BMP) Comments: 'TROP' Serial specimen #1, #2, #3, or #4: [address] [place] [address] [address] [place], [place], [address] GAP 10 (Normal) Range: 5-15 CO2 25.0 [...] A.D.A. criteria.Please note revised GLUCOSE reference range nzyxiiwpt62/02/2018. 18-Xnp-179852:33 CBC W/Diff, Automated Comments: [facility] [address] [place], [place], [address] Absolute Lymph 3.48 {X10_3/ul} (Normal) Range: 0.83-4.51 [...] 4.2-5.4 WBC 10.4 K/mm3 (Normal) Range: 4.4-11.0 96-Lzl-805534:33 Troponin-I Comments: 'TROP' Serial specimen #1, #2, #3, or #4: [address] [place] [address] [address] [place], [place], [address] TROPONIN-I 0.14 ng/mL (Abnormal) Comments: TROPONIN-I EXPECTED VALUES <0.05 NEGATIVE 0.06 - 0.59 AT RISK OF LA > OR = 0.60 SUGGEST LA 8-Ozr-490541:16 HgA1C , Office (08269) HgA1C , Office 7.9 % (Abnormal) Range: 4.6 - 7.1 2-Qaq-777561:15 Blood Glucose , Office (81067) Blood Glucose , Office 166 (Normal) 1-Aus-311288:25 Basic Metabolic Profile (BMP) Comments: Order Date: 12/13/16Order Info: [id number] - *BMPComments: Reason:[facility] [address] [place], [place], [address] GAP 9 (Normal) Range: 5-15 CO2 29.0 [...] 200 mg/dLsuggests DIABETES MELLITUS per A.D.A. criteria. 96-Ozi-407441:27 Basic Metabolic Profile (BMP) Comments: Order Date: 11/19/16Order Info: 0667-1 - *BMPComments: Reason:[facility] [address] [place], [place], [address] GAP 8 (Normal) Range: 5-15 CO2 27.0 [...] 200 mg/dLsuggests DIABETES MELLITUS per A.D.A. criteria. 27-Ask-545857:27 Partial Thromboplast Time Comments: Order Date: 11/19/16Order Info: [id number] - *PT/INROrder Info: 03643-4 - *PTT-Partial Thromboplastin TimeWSt. [facility] [address]glijzz[address] [place], [place], [address](689) PTT 29.4 s (Normal) Range: 24.1-36.2 :27 Prothrombin Time w/INR Comments: Order Date: 11/19/16Order Info: [id number] - *PT/INROrder Info: 30115-8 - *PTT-Partial Thromboplastin TimeWSt. [facility] [address]cxch[address] [place], [address](070) INR 1.1 (Normal) PROTIME 13.4 s (Normal) Range: 11.7-14.9 :05 Basic Metabolic Profile (BMP) Comments: 'TROP' Serial specimen #1, #2, #3, or #4: 1[facility] [address] [place], [place], [address] GAP 10 (Normal) Range: 5-15 CO2 25.0 [...] A.D.A. criteria. :05 BNP,B-Type NATRIURETIC PEPTIDE Comments: [facility] [address] [facility] [place], [address] B-TYPE ANDREW PEP 316.0 pg/mL (Abnormal) Range: 0-100 :05 CBC W/Diff, Automated Comments: [facility] [address] [facility] [address] [place], [place], [address] Absolute Lymph 1.26 {X10_3/ul} (Normal) Range: 0.83-4.51 [...] Serial specimen #1, #2, #3, or #4: [address] [place] [address] [address] [place], [address] TROPONIN-I 0.15 ng/mL (Abnormal) Comments: TROPONIN-I EXPECTED VALUES <0.05 NEGATIVE 0.06 - 0.59 AT RISK OF LA > OR = 0.60 SUGGEST LA 8-Pwo-811945:10 Basic Metabolic Profile (BMP) Comments: 'TROP' Serial specimen #1, #2, #3, or #4: [address] [place] [address] [address] [place], [place], [address] GAP 13 (Normal) Range: 5-15 CO2 22.0 [...] A.D.A. criteria. :10 CBC W/Diff, Automated Comments: [facility] [address] [place], [place], [address] Absolute Lymph 2.88 {X10_3/ul} (Normal) Range: 0.83-4.51 [...] #2, #3, or #4: 1[facility] [address]xwiisgpac[address] [place], [place], [address] TSH 1.29 {uIU/mL} (Normal) Range: 0.358-3.74 :10 Troponin-I Comments: 'TROP' Serial specimen #1, #2, #3, or #4: [address] [place] [address] [address] [place], [place], [address] TROPONIN-I < 0.02 ng/mL (Normal) Comments: TROPONIN-I EXPECTED VALUES <0.05 NEGATIVE 0.06 - 0.59 AT RISK OF LA > OR = 0.60 SUGGEST LA :58 HgA1C , Office (33761) HgA1C , Office 7.6 % (Abnormal) Range: 4.6 - 7.1 :58 Blood Glucose , Office (59158) Blood Glucose , Office 159 (Normal) :50 CBC W/Diff, Automated Comments: [facility] [address] [place], [place], [address] Absolute Lymph 1.46 {X10_3/ul} (Normal) Range: 0.83-4.51 [...] 4.2-5.4 WBC 7.3 K/mm3 (Normal) Range: 4.4-11.0 92-Mqh-998116:50 CCP IgG Antibodies Comments: [facility] (refer to report for specific site)refer to report for address and phone number ANTI-CCP 158201 4 {units} (Normal) Range: 0-19 Comments: Negative <20 Weak positive 20 - 39 Moderate positive 40 - 59 Strong positive >59 90-Zry-816906:50 Comprehensive Metabolic Profil Comments: [facility] [address] [place], [place], [address] GAP 9 (Normal) Range: 5-15 CO2 26.0 [...] 126 mg/dLsuggests DIABETES MELLITUS per A.D.A. criteria. 31-Tuo-976789:50 CRP Comments: [facility] Xfp[address]wnrrjt2292 [facility]. [place], [place], [address] C-REACTIVE PROT 8.89 mg/L (Abnormal) Range: 0.0-3.0 Comments: C-Reactive Protein (CRP) provides useful information for thediagnosis, therapy and monitoring of inflammatory processesand associated diseases. For the evaluation of Relative Riskfor Cardiovascular Dise ase, a High Sensitivity CRP (HSCRP)should be ordered. 86-Avy-972042:50 Erythrocyte Sed Rate Comments: [facility] Llg[address]ts[address] [facility] [place], [place], [address] SED RATE 27 mm/h (Normal) Range: 0-30 15-Ikd-666271:50 Hep B Surface Antibodies Comments: [facility] (refer to report for specific site)refer to report for address and phone number Hep B Booker AB Non Reactive (Normal) Comments: Non Reactive: Inconsistent with immunity, less than 10 mIU/mL Reactive: Consistent with immunity, greater than 9.9 mIU/ mL 70-Dji-719417:50 Hepatitis B Surface Ag Comments: [facility] (refer to report for specific site)refer to report for address and phone number HB SURF AG Negative (Normal) Comments: Performed at: - [facility] [id number] Director: Christopher Sullivan PhD, Phone: [phone] at: - [facility] [address] [id number] Director: Loco Ivey MD, Phone: [phone] 13-Hzn-868784:50 Hepatitis C Antibodies Comments: [facility] (refer to report for specific site)refer to report for address and phone number HEP C AB <0.1 {s/co_ratio} (Normal) Range: 0.0-0.9 Comments: Negative: < 0.8 Indeterminate: 0.8 - 0.9 Positive: > 0.9 The CDC recommends that a positive HCV antibody result be followed up with a HCV Nucleic Acid Amplification test (382591). :50 Rheumatoid Factor Comments: [facility] [address] [facility] [address] [facility] [address] [place], [place], [address] RHEUMATOID FAC < 10.0 {IU/mL} (Normal) :50 Uric Acid Comments: [facility] [address]zfrxi4[address] [facility]. [place], [place], [address] URIC 7.1 mg/dL (Abnormal) Range: 2.6-6.0 Comments: The drugs N-Acetylcysteine and Metamizole may falselydepress this assay. :03 Unable to Void SPRCS (Normal) Comments: PATIENT WAS FASTINGPERFORMED BY: [employer] [facility] [id number] Comments: The patient was not able to render a urine sample and has beeninstructed to return for a urine collection at their earliestconvenience. The urine testing that you have requested hasbeen deleted from th is report. When the patient returns andprovides a urine specimen, the urine testing will be performedand separately reported. :03 VITAMIN B-12 (CYANOCOBALAMIN) Comments: PATIENT WAS FASTINGPERFORMED BY: [employer] Ldvtit7544 [facility] [id number] (78779) Vitamin B12 264 pg/mL (Normal) Range: 211-946 :03 METABOLIC PANEL, COMPREHENSIVE Comments: PATIENT WAS FASTINGPERFORMED BY: [employer]70 [facility] [id number] (95998) ALT (SGPT) 7 [iU]/L (Normal) Range: 0-32 [...] mg/dL (Abnormal) Range: 65-99 :03 LIPID PANEL (62862) Comments: PATIENT WAS FASTINGPERFORMED BY: [facility] [id number] VLDL Cholesterol Jyoti VLDLCH mg/dL (Normal) Range: 5-40 Comments: The calculation for the VLDL cholesterol is not valid whentriglyceride level is >400 mg/dL.Triglyceride result indicated is too high for an accurate LDLcholesterol estimation. HDL Cholesterol 26 mg/dL (Abnormal) Triglycerides 542 mg/dL (Abnormal) Range: 0-149 Cholesterol, Total 183 mg/dL (Normal) Range: 100-199 :03 CBC W/AUTO DIFF WBC (57331) Comments: PATIENT WAS FASTINGPERFORMED BY: [employer]70 [facility] [id number] Immature Grans (Abs) 0.0 {x10E3/uL} (Normal) Range: [...] (Normal) Range: 3.4-10.8 :48 HgA1C , Office (53444) HgA1C , Office 8.0 % (Abnormal) Range: 4.6 - 7.1 :48 Blood Glucose , Office (56452) Blood Glucose , Office 166 (Normal) :06 CALCIFEDIOL (24632) Comments: PATIENT NOT FASTINGPERFORMED BY: [facility] HealthCareVnpbcs6728 [facility] [id number] Vitamin D, 25-Hydroxy 51.1 ng/mL (Normal) Range: 30.0-100.0 Comments: Vitamin D deficiency has been defined by the [place] ofMedicine and an Endocrine Society practice guideline as alevel of serum 25-OH vitamin D less than 20 ng/mL (1,2).The Endocrine Society went on to further define vitamin Dinsufficiency as a level between 21 and 29 ng/mL (2).1. IOM ([place] of Medicine). 2010. Dietary reference intakes for calcium and D. [place]: The National Academies Press.2. Bobo MF, Estrellita STOCKTON, Maddi CALIX, et al. Evaluation, treatment, and prevention of vitamin D deficiency: an Endocrine Society clinical practice guideline. JCEM. 2010; 96(7):1911-30. 2-Vgc-474325:06 CBC, PLATELETS & AUT DIFF Comments: PATIENT NOT FASTINGPERFORMED BY: [facility]CoR[facility] HealthCareVmoeta7854 [facility] [id number] (95061) Immature Grans (Abs) 0.0 {x10E3/uL} (Normal) Range: [...] (Normal) Range: 3.4-10.8 :36 HgA1C , Office (76740) HgA1C , Office 8.0 % (Abnormal) Range: 4.6 - 7.1 :36 Blood Glucose , Office (02113) Blood Glucose , Office 155 (Normal) :39 METABOLIC PANEL, COMPREHENSIVE Comments: PATIENT WAS FASTINGPERFORMED BY: [facility] HealthCareIsvqnb3757 [facility] [id number] (95475) ALT (SGPT) 6 [iU]/L (Normal) Range: 0-32 [...] mg/dL (Abnormal) Range: 65-99 :39 LIPID PANEL (87445) Comments: PATIENT WAS FASTINGPERFORMED BY: [employer]70 [facility] [id number] LDL/HDL Ratio 3.6 {ratio_units} (Abnormal) Range: 0.0-3.2 Comments: LDL/HDL Ratio Men Women 1/2 Avg.Risk 1.0 1.5 Av g.Risk 3.6 3.2 2X Avg.Risk 6.2 5.0 3X Avg.Risk 8.0 6.1 LDL Cholesterol Calc 104 mg/dL (Abnormal) Range: 0-99 VLDL Cholesterol Jyoti 72 mg/dL (Abnormal) Range: 5-40 HDL Cholesterol 29 mg/dL (Abnormal) Triglycerides 359 mg/dL (Abnormal) Range: 0-149 Cholesterol, Total 205 mg/dL (Abnormal) Range: 100-199 08-Ffr-613476:49 Blood Glucose , Office (78171) Blood Glucose , Office 159 (Normal) 17-Zmx-612121:49 HgA1C , Office (83954) HgA1C , Office 8.1 % (Abnormal) Range: 4.6 - 7.1 03-Vra-879190:03 VITAMIN B-12 (CYANOCOBALAMIN) Comments: PATIENT WAS FASTINGPERFORMED BY: [employer]6370 [facility] [id number] (34337) Vitamin B12 319 pg/mL (Normal) Range: 211-946 95-Tsn-052595:03 LIPID PANEL (61412) Comments: PATIENT WAS FASTINGPERFORMED BY: [employer]70 [facility] [id number] VLDL Cholesterol Jyoti VLDLCH mg/dL (Normal) Range: [...] Cholesterol, Total 192 mg/dL (Normal) Range: 100-199 57-Lxq-340693:03 Vitamin D Hydroxy (92442) Comments: PATIENT WAS FASTINGPERFORMED BY: [facility] Ybtygp6601 [facility] [id number] Vitamin D, 25-Hydroxy 21.1 ng/mL (Abnormal) Range: 30.0-100.0 Comments: Vitamin D deficiency has been defined by the [place] of[place]icine and an Endocrine Society practice guideline as alevel of serum 25-OH vitamin D less than 20 ng/mL (1,2).The Endocrine Society went on to further define vitamin Dinsufficiency as a level between 21 and 29 ng/mL (2).1. IOM ([place] of Medicine). 2010. Dietary reference intakes for calcium and D. [place]: The National Academies Press.2. Bobo MF, Estrellita STOCKTON, Maddi CALIX, et al. Evaluation, treatment, and prevention of vitamin D deficiency: an Endocrine Society clinical practice guideline. JCEM. 2010; 96(7): 1911-30.; ADDENDA: non-emergent till apt next week 67-Cmz-979022:03 MICROALBUMIN: CREATININE RATIO Comments: PATIENT WAS FASTINGPERFORMED BY: eBuilderRutgers [facility] Behavioral HealthCareGyliiu4162 [facility] [id number] (45656) AND (46743) Microalb/Creat Ratio 26.1 {mg/g_creat} (Normal) Range: 0.0-30.0 Microalbumin, Urine 20.0 ug/mL (Normal) Creatinine, Urine 76.5 mg/dL (Normal) 34-Hvn-395811:03 CBC W/AUTO DIFF WBC Comments: PATIENT WAS FASTINGPERFORMED BY: [facility] [place]6370 [facility] [id number] Information: [id number] (94423) Immature Grans (Abs) 0.0 {x10E3/uL} (Normal) Range: [...] 3.77-5.28 WBC 8.1 {x10E3/uL} (Normal) Range: 3.4-10.8 87-Iph-971307:03 METABOLIC PANEL, COMPREHENSIVE Comments: PATIENT WAS FASTINGPERFORMED BY: [facility] Nljjvv4873 [facility] [facility] [id number] (07599) ALT (SGPT) 7 [iU]/L (Normal) Range: 0-32 [...] (Abnormal) Range: 65-99 :53 Vitamin D Hydroxy (29600) Comments: PATIENT WAS FASTINGPERFORMED BY: [employer]6370 [facility] [id number] Vitamin D, 25-Hydroxy 25.5 ng/mL (Abnormal) Range: 30.0-100.0 Comments: Vitamin D deficiency has been defined by the [place] of[place]icine and an Endocrine Society practice guideline as alevel of serum 25-OH vitamin D less than 20 ng/mL (1,2).The Endocrine Society went on to further define vitamin Dinsufficiency as a level between 21 and 29 ng/mL (2).1. IOM ([place] of Medicine). 2010. Dietary reference intakes for calcium and D. [place]: The National Academies Press.2. Bobo MF, Estrellita NC, Maddi CALIX, et al. Evaluation, treatment, and prevention of vitamin D deficiency: an Endocrine Society clinical practice guideline. JCEM. 2010; 96(7):1911-30. :53 LIPID PANEL (42927) Comments: PATIENT WAS FASTINGPERFORMED BY: [employer]CoQueryly Vhzhwf4129 [facility] [id number] LDL/HDL Ratio 3.7 {ratio_units} (Abnormal) Range: 0.0-3.2 [...] PANEL, COMPREHENSIVE Comments: PATIENT WAS FASTINGPERFORMED BY: LabCoRutgers - University Behavioral HealthCareKfhage7285 [facility] [id number] (17822) ALT (SGPT) 5 [iU]/L (Normal) Range: 0-32 [...] mg/dL (Abnormal) Range: 65-99 :34 HGB A1C (65333) Comments: PATIENT WAS FASTINGPERFORMED BY: [employer]6370 [facility] [id number] Hemoglobin A1c 8.9 % (Abnormal) Range: 4.8-5.6 Comments: . Pre-diabetes: 5.7 - 6.4 Diabetes: >6.4 Glycemic control for adults with diabetes: <7.0 :11 VITAMIN B-12 (CYANOCOBALAMIN) Comments: B12lot:5200exp:06/26site:lt deltroute:Romeose:chilo Camargo; PATIENT WAS FASTINGPERFORMED BY: eBuilder Tudekv0955 [facility] [id number] (08409) Vitamin B12 301 pg/mL (Normal) Range: 211-946 :11 Vitamin D Hydroxy (93027) Comments: PATIENT WAS FASTINGPERFORMED BY: eBuilder Gzukii1495 [facility] [id number] Vitamin D, 25-Hydroxy 20.3 ng/mL (Abnormal) Range: 30.0-100.0 Comments: Vitamin D deficiency has been defined by the [place] of[place]icine and an Endocrine Society practice guideline as alevel of serum 25-OH vitamin D less than 20 ng/mL (1,2).The Endocrine Society went on to further define vitamin Dinsufficiency as a level between 21 and 29 ng/mL (2).1. IOM ([place] of [place]). 2010. Dietary reference intakes for calcium and D. [place]: The National Academies Press.2. Bobo MF, Estrellita STOCKTON, Maddi CALIX, et al. Evaluation, treatment, and prevention of vitamin D deficiency: an Endocrine Society clinical practice guideline. JCEM. 2010; 96(7):1911-30. :11 METABOLIC PANEL, Comments: PATIENT WAS FASTINGPERFORMED BY: PreisAnalytics70 [facility]obFirst[facility] Hospital [id number] Information: [id number] COMPREHENSIVE (88227) ALT (SGPT) 6 [iU]/L (Normal) Range: 0-32 [...] mg/dL (Abnormal) Range: 65-99 :11 LIPID PANEL (47008) Comments: PATIENT WAS FASTINGPERFORMED BY: eBuilder Dbdujm7847 [facility] [id number]; will review on 07/04 LDL/HDL Ratio 4.0 [...] mg/dL (Abnormal) Range: 100-199 :11 HGB A1C (31235) Comments: PATIENT WAS FASTINGPERFORMED BY: [employer]Builder Gyaqce5428 [facility] [id number] Hemoglobin A1c 8.5 % (Abnormal) Range: 4.8-5.6 Comments: . Pre-diabetes: 5.7 - 6.4 Diabetes: >6.4 Glycemic control for adults with diabetes: <7.0 :16 Vitamin D Hydroxy (05508) Comments: PATIENT WAS FASTINGPERFORMED BY: eBuilder Maebvx0960 [facility] [id number] Vitamin D, 25-Hydroxy 21.3 ng/mL (Abnormal) Range: 30.0-100.0 Comments: Vitamin D deficiency has been defined by the [place] of[place]icine and an Endocrine Society practice guideline as alevel of serum 25-OH vitamin D less than 20 ng/mL (1,2).The Endocrine Society went on to further define vitamin Dinsufficiency as a level between 21 and 29 ng/mL (2).1. IOM ([place] of [place]). 2010. Dietary reference intakes for calcium and D. [place]: The National Academies Press.2. Bobo MF, Estrellita NC, Maddi CALIX, et al. Evaluation, treatment, and prevention of vitamin D deficiency: an Endocrine Society clinical practice guideline. JCEM. 2010; 96(7):1911-30. :16 VITAMIN B-12 (CYANOCOBALAMIN) Comments: PATIENT WAS FASTINGPERFORMED BY: [facility]6370 [facility] [id number] (29606) Vitamin B12 283 pg/mL (Normal) Range: 211-946 :16 CBC W/AUTO DIFF WBC Comments: PATIENT WAS FASTINGPERFORMED BY: [facility]6370 [facility] [id number] Information: [id number] (70718) Immature Grans (Abs) 0.0 {x10E3/uL} (Normal) Range: [...] {x10E3/uL} (Normal) Range: 3.4-10.8 :16 LIPID PANEL (97735) Comments: PATIENT WAS FASTINGPERFORMED BY: eBuilder Ckbkon9612 [facility] [id number] VLDL Cholesterol Jyoti VLDLCH mg/dL (Normal) Range: [...] Cholesterol, Total 168 mg/dL (Normal) Range: 100-199 65-Oqr-009459:49 HGB A1C (17194) Comments: PATIENT NOT FASTINGPERFORMED BY: eBuilder Ewmpgs8902 [facility] [id number] Information: [id number] Hemoglobin A1c 8.1 % (Abnormal) Range: 4.8-5.6 Comments: . Pre-diabetes: 5.7 - 6.4 Diabetes: >6.4 Glycemic control for adults with diabetes: <7.0 :30 VITAMIN B-12 (CYANOCOBALAMIN) Comments: PATIENT WAS FASTINGPERFORMED BY: eBuilderRutgers - University Behavioral HealthCareFhjyrb3470 [facility] [id number] (42984) Vitamin B12 325 pg/mL (Normal) Range: 211-946 85-Iby-68532:30 CBC (AUTO) (67652) Comments: PATIENT WAS FASTINGPERFORMED BY: PatreonHealth[facility] [place]6370 [facility] [id number] Platelets 309 {x10E3/uL} (Normal) Range: 150-379 RDW 14.8 % (Normal) Range: 12.3-15.4 MCHC 31.1 g/dL (Abnormal) Range: 31.5-35.7 MCH 25.6 pg (Abnormal) Range: 26.6-33.0 MCV 82 fL (Normal) Range: 79-97 Hematocrit 39.2 % (Normal) Range: 34.0-46.6 Hemoglobin 12.2 g/dL (Normal) Range: 11.1-15.9 RBC 4.77 {x10E6/uL} (Normal) Range: 3.77-5.28 WBC 10.9 {x10E3/uL} (Abnormal) Range: 3.4-10.8 :30 Vitamin D Hydroxy (13561) Comments: PATIENT WAS FASTINGPERFORMED BY: [employer]70 [facility] [id number] Vitamin D, 25-Hydroxy 19.9 ng/mL (Abnormal) Range: 30.0-100.0 Comments: Vitamin D deficiency has been defined by the [place] of[place] and an Endocrine Society practice guideline as alevel of serum 25-OH vitamin D less than 20 ng/mL (1,2).The Endocrine Society went on to further define vitamin Dinsufficiency as a level between 21 and 29 ng/mL (2).1. IOM ([place] of [place]). 2010. Dietary reference intakes for calcium and D. [place]: The National Academies Press.2. Bobo MF, Estrellita STOCKTON, Maddi CALIX, et al. Evaluation, treatment, and prevention of vitamin D deficiency: an Endocrine Society clinical practice guideline. JCEM. 2010; 96(7): 1911-30.; ADDENDA: non-emergent till tomorrows apt :30 LIPID PANEL (15964) Comments: PATIENT WAS FASTINGPERFORMED BY: [employer]6370 [facility] RegionSoWeTripFirstHealth [facility] [id number] VLDL Cholesterol Jyoti VLDLCH mg/dL (Normal) Range: [...] CREATININE RATIO Comments: PATIENT WAS FASTINGPERFORMED BY: [employer]is[employer]ytics70 [facility] [id number] (53937) AND (02567) Microalb/Creat Ratio 190.8 {mg/g_creat} (Abnormal) Range: 0.0-30.0 Microalbumin, Urine 66.6 ug/mL (Abnormal) Range: 0.0-17.0 Creatinine, Urine 34.9 mg/dL (Normal) Range: 15.0-278.0 :30 METABOLIC PANEL, Comments: PATIENT WAS FASTINGPERFORMED BY: [facility] Kqoarc5986 [facility] [id number] Information: [id number] COMPREHENSIVE (13493) ALT (SGPT) 6 [iU]/L (Normal) Range: 0-32 [...] (Abnormal) Range: 65-99 :59 Vitamin D Hydroxy (91827) Comments: PATIENT NOT FASTINGPERFORMED BY: [facility] Zurlcj5406 [facility] [place] [id number]; apt. 10-21-14 Vitamin D, 25-Hydroxy 21.4 ng/mL (Abnormal) Range: 30.0-100.0 Comments: Vitamin D deficiency has been defined by the [place] and an Endocrine Society practice guideline as alevel of serum 25-OH vitamin D less than 20 ng/mL (1,2).The Endocrine Society went on to further define vitamin Dinsufficiency as a level between 21 and 29 ng/mL (2).1. IOM ([place] of [place]). 2010. Dietary reference intakes for calcium and D. [place]: The National Academies Press.2. Bobo MF, Estrellita STOCKTON, Maddi CALIX, et al. Evaluation, treatment, and prevention of vitamin D deficiency: an Endocrine Society clinical practice guideline. JCEM. 2010; 96(7):1911-30. :59 LIPID PANEL (86294) Comments: PATIENT NOT FASTINGPERFORMED BY: [facility] Gkukro6127 [facility] [id number] VLDL Cholesterol Jyoti VLDLCH mg/dL (Normal) Range: [...] B-12 (CYANOCOBALAMIN) Comments: PATIENT NOT FASTINGPERFORMED BY: [facility] Vkdiow3612 [facility]in [place] [id number] (75769) Vitamin B12 500 pg/mL (Normal) Range: 211-946 :59 CBC W/AUTO DIFF WBC Comments: PATIENT NOT FASTINGPERFORMED BY: [facility] Nbkaoa4780 [facility] [id number] Information: [id number] (03310) Immature Grans (Abs) 0.0 {x10E3/uL} (Normal) Range: [...] Comments: PATIENT NOT FASTINGPERFORMED BY: BELKYS [facility] Lxhyuk4396 [facility] [id number] (78674) ALT (SGPT) 6 [iU]/L (Normal) Range: 0-32 [...] Range: 65-99 :38 Blood Glucose , Office (41875) Blood Glucose , Office 198 (Normal) :38 HgA1C , Office (01835) HgA1C , Office 9.1 % (Abnormal) Range: 4.6 - 7.1 :40 Allergens, Zone 8 Comments: Test(s) 600015-U096-KyP Cockroach, [place] Citizen; 901460-O790-FbI White, White; 167303-W256-MhE Sweet Gumwere developed and had performance characteristicsdetermined by [employer]. These tests have not been c leared orapproved by the U.S. Food and Drug Administration. The FDAhas determined that such clearance or approval is notnecessary. These tests are used for clinical purposes.These should not be regarded as investigational or forresearch.Test performed at:[facility] Sgtzjcfnbh4544 [address] [place], [place] [id number] ; handled by jennifer VANG COMMENT Comment [...] NETTLE <0.10 kU/L (Normal) Comments: Performed at: [address] [id number] Director: Loco Ivey MD, Phone: [phone] SHEEP SORREL <0.10 kU/L (Normal) PIGWEED, ROUGH [...] kU/L (Normal) D PTERONYSSINUS <0.10 kU/L (Normal) 98-Lww-34642:40 Immunoglobulin E Comments: Test performed at:[facility] Igybywkozx4939 [place] [address] IMMUNO E 53 {IU/mL} (Normal) Range: 0-100 Comments: Performed at: [facility] Patreon[address] [id number] Director: Christopher Sullivan PhD, Phone: [phone]; ADDENDA: handled by jennifer 30-Xis-141146:26 HgA1C , Office (10300) HgA1C , Office 9.6 % (Abnormal) Range: 4.6 - 7.1 3-Jbh-945189:31 BNP,B-Type NATRIURETIC PEPTIDE Comments: Test performed at:[facility] Qmtegguwoz7361 [place], [place] [address] B-TYPE ANDREW PEP 58.8 pg/mL (Normal) Range: 0-100 10-Ipi-924012:04 IRON BINDING CAPACITY (TIBC) Comments: PERFORMED BY: eBuilderRutgers - University Behavioral HealthCareUjkhox69[address] [place] [address] [id number] (33144) Iron Saturation 11 % (Abnormal) Range: 15-55 Iron, Serum 47 ug/dL (Normal) Range: 35-155 UIBC 362 ug/dL (Normal) Range: 150-375 Iron Bind.Cap.(TIBC) 409 ug/dL (Normal) Range: 250-450 96-Jsd-490553:04 FERRITIN (66175) Comments: PERFORMED BY: eBuilderRutgers - University Behavioral HealthCareAzjezf694[address] [place] [address] [id number] Ferritin, Serum 32 ng/mL (Normal) Range: 15-150 15-Wio-622333:04 VITAMIN B-12 (CYANOCOBALAMIN) Comments: PERFORMED BY: eBuilder Ureyze9717 [facility] [id number] (85703) Vitamin B12 304 pg/mL (Normal) Range: 211-946 87-Vmk-872581:04 Vitamin D Hydroxy (18066) Comments: PERFORMED BY: eBuilder Dgqdxb9771 [facility] [id number] Vitamin D, 25-Hydroxy 17.5 ng/mL (Abnormal) Range: 30.0-100.0 Comments: Vitamin D deficiency has been defined by the [place] of[place]icine and an Endocrine Society practice guideline as alevel of serum 25-OH vitamin D less than 20 ng/mL (1,2).The Endocrine Society went on to further define vitamin Dinsufficiency as a level between 21 and 29 ng/mL (2).1. IOM ([place] of [place]). 2010. Dietary reference intakes for calcium and D. [place]: The National Academies Press.2. Bobo MF, Estrellita STOCKTON, Maddi CALIX, et al. Evaluation, treatment, and prevention of vitamin D deficiency: an Endocrine Society clinical practice guideline. JCEM. 2010; 96(7):1911-30. 58-Ekb-494720:04 LIPID PANEL (95516) Comments: PERFORMED BY: [facility] [id number] VLDL Cholesterol Jyoti VLDLCH mg/dL (Normal) Range: [...] Cholesterol, Total 166 mg/dL (Normal) Range: 100-199 41-Cne-936863:04 CBC W/AUTO DIFF WBC (95957) Comments: PERFORMED BY: eBuilder Txwtry0424 [facility] [id number] Immature Grans (Abs) 0.0 {x10E3/uL} (Normal) Range: [...] 3.77-5.28 WBC 7.3 {x10E3/uL} (Normal) Range: 3.4-10.8 47-Aej-355323:04 METABOLIC PANEL, COMPREHENSIVE Comments: PERFORMED BY: LabCoRutgers - University Behavioral HealthCarePsfkcl1131 [facility] [id number] (11402) ALT (SGPT) 5 [iU]/L (Normal) Range: 0-32 [...] Glucose, Serum 279 mg/dL (Abnormal) Range: 65-99 04-Wtz-652363:18 HgA1C , Office (55955) HgA1C , Office 8.3 % (Abnormal) Range: 4.6 - 7.1 99-Uee-595310:12 Rapid Flu (52225 x 2) Influenza A Ag negative (Normal) 83-Rse-830499:43 BNTP (85700) Comments: PATIENT NOT FASTINGPERFORMED BY: LabCoRutgers - University Behavioral HealthCareJeyjft6183 [facility] [id number] Information: [id number] B-Type Natriuretic Peptide 67.8 pg/mL (Normal) Range: 0.0-100.0 0-Efb-678517:12 CBCD ALC 1.70 {X10_3/ul} (Normal) Range: 0.83-4.51 [...] A.D.A. criteria. :14 Blood Glucose , Office (50978) Blood Glucose , Office 112 (Normal) 35-Jtp-526883:14 HgA1C , Office (53311) HgA1C , Office 7.3 % (Abnormal) Range: 4.6 - 7.1 20-Uey-313610:45 WESTON Negative (Normal) Comments: Performed at: - LabCo[address] [id number] Director: Nick Cali PhD, Phone: [phone] 82-Qqm-978247:45 CBCD ALC 1.65 {X10_3/ul} (Normal) Range: 0.83-4.51 [...] 4.2-5.4 WBC 7.5 K/mm3 (Normal) Range: 4.4-11.0 76-Zji-308328:45 CCP 2 {units} (Normal) Range: 0-19 Comments: Negative <20Weak positive 20 - 39Moderate positive 40 - 59Strong positive >59Performed at: BN - [facility]University [facility] Care[address] [place], [place] [id number] Director: Loco Ivey MD, Phone: [phone] 04-Sic-273201:45 CMP GAP 4 (Abnormal) Range: 5-15 CO2 [...] ng/mL (>250 nmol/L) :46 Vitamin D Hydroxy (55673) Comments: PATIENT WAS FASTINGPERFORMED BY: eBuilder Owtsjp2541 [facility] [id number] Vitamin D, 25-Hydroxy 22.7 ng/mL (Abnormal) Range: 30.0-100.0 Comments: Vitamin D deficiency has been defined by the [place] of[place]icine and an Endocrine Society practice guideline as alevel of serum 25-OH vitamin D less than 20 ng/mL (1,2).The Endocrine Society went on to further define vitamin Dinsufficiency as a level between 21 and 29 ng/mL (2).1. IOM ([place] of [place]). 2010. Dietary reference intakes for calcium and D. [place]: The National Academies Press.2. Bobo MF, Estrellita NC, Maddi CALIX, et al. Evaluation, treatment, and prevention of vitamin D deficiency: an Endocrine Society clinical practice guideline. JCEM. 2010; 96(7):1911-30. :46 MICROALBUMIN: CREATININE RATIO Comments: PATIENT WAS FASTINGPERFORMED BY: eBuilderMimbres Memorial HospitalSkxvdy8329 [facility] [id number] (73610) AND (74248) Microalb/Creat Ratio 37.1 {mg/g_creat} (Abnormal) Range: 0.0-30.0 Microalbumin, Urine 29.9 ug/mL (Abnormal) Range: 0.0-17.0 Creatinine, Urine 80.5 mg/dL (Normal) Range: 15.0-278.0 :46 METABOLIC PANEL, COMPREHENSIVE Comments: PATIENT WAS FASTINGPERFORMED BY: eBuilderMimbres Memorial HospitalQpggee3514 [facility] [id number] (22754) ALT (SGPT) 7 [iU]/L (Normal) Range: 0-32 [...] Glucose, Serum 141 mg/dL (Abnormal) Range: 65-99 78-Zua-54314:46 LIPID PANEL (51317) Comments: PATIENT WAS FASTINGPERFORMED BY: LabCoRutgers - University Behavioral HealthCareKxinwy5057 [facility] [id number] LDL/HDL Ratio 2.1 {ratio_units} (Normal) Range: 0.0-3.2 [...] DIFF Comments: PATIENT WAS FASTINGPERFORMED BY: BELKYS LabCoRutgers - University Behavioral HealthCareLkhkkp2147 [facility] [id number] Information: [id number] (68263) Hematology Comments: Note: (Normal) Comments: Verified by [...] (CYANOCOBALAMIN) Comments: PATIENT WAS FASTINGPERFORMED BY: [facility] Lbtxhc0014 [facility] [id number] (71547) Vitamin B12 254 pg/mL (Normal) Range: 211-946 2-Frj-085053:10 HgA1C , Office (24416) HgA1C , Office 6.8 % (Normal) Range: 4.6 - 7.1 9-Mxu-395640:10 Blood Glucose , Office (23898) Blood Glucose , Office 146 (Normal) Comments: non-fasting :36 LIPID PANEL (18988) Comments: PATIENT WAS FASTINGPERFORMED BY: PreisAnalytics70 [facility] [id number] VLDL Cholesterol Jyoti VLDLCH mg/dL (Normal) Range: [...] MANUAL DIFF Comments: PATIENT WAS FASTINGPERFORMED BY: Host Analytics6370 [facility] [id number] Information: [id number] (43617) Immature Grans (Abs) 0.0 {x10E3/uL} (Normal) Range: [...] PANEL, COMPREHENSIVE Comments: PATIENT WAS FASTINGPERFORMED BY: LabCoRutgers - University Behavioral HealthCareOmranh6660 [facility] [id number] (87881) ALT (SGPT) 6 [iU]/L (Normal) Range: 0-32 [...] (Abnormal) Range: 65-99 :36 Vitamin D Hydroxy (35965) Comments: PATIENT WAS FASTINGPERFORMED BY: PreisAnalytics70 [facility] CorporationHigh[facility]-C[facility]iers [facility] [id number] Vitamin D, 25-Hydroxy 17.5 ng/mL (Abnormal) Range: 30.0-100.0 Comments: Vitamin D deficiency has been defined by the [place] of[place]icine and an Endocrine Society practice guideline as alevel of serum 25-OH vitamin D less than 20 ng/mL (1,2).The Endocrine Society went on to further define vitamin Dinsufficiency as a level between 21 and 29 ng/mL (2).1. IOM ([place] of [place]). 2010. Dietary reference intakes for calcium and D. [place]: The National Academies Press.2. Bobo MF, Estrellita NC, Maddi CALIX, et al. Evaluation, treatment, and prevention of vitamin D deficiency: an Endocrine Society clinical practice guideline. JCEM. 2010; 96(7):1911-30. :36 VITAMIN B-12 (CYANOCOBALAMIN) Comments: PATIENT WAS FASTINGPERFORMED BY: Scripped Tpsxgb9297 [facility] [id number] (31944) Vitamin B12 264 pg/mL (Normal) Range: 211-946 :36 IRON (73011) Comments: PATIENT WAS FASTINGPERFORMED BY: Scripped Agnouk4699 [facility] [id number] Iron, Serum 52 ug/dL (Normal) Range: 35-155 82-Lbj-843024:54 HgA1C , Office (09395) HgA1C , Office 7.1 % (Normal) Range: 4.6 - 7.1 :09 VITAMIN B-12 (CYANOCOBALAMIN) Comments: PATIENT WAS FASTINGPERFORMED BY: eBuilder Uycvpz8236 [facility] [place] [id number] (37454) Vitamin B12 704 pg/mL (Normal) Range: 211-946 :09 Vitamin D Hydroxy (39458) Comments: PATIENT WAS FASTINGPERFORMED BY: PatreonWashington County [facility] Hospital Qfoxin9185 [facility]bl[facility] [place] [id number] Vitamin D, 25-Hydroxy 21.8 ng/mL (Abnormal) Range: 30.0-100.0 Comments: Vitamin D deficiency has been defined by the [place] of[place]cine and an Endocrine Society practice guideline as alevel of serum 25-OH vitamin D less than 20 ng/mL (1,2).The Endocrine Society went on to further define vitamin Dinsufficiency as a level between 21 and 29 ng/mL (2).1. IOM ([place] of [place]). 2010. Dietary reference intakes for calcium and D. [place]: The National Academies Press.2. Bobo MF, Estrellita [place], Maddi CALIX, et al. Evaluation, treatment, and prevention of vitamin D deficiency: an Endocrine Society clinical practice guideline. JCEM. 2010; 96(7):1911-30. :09 MICROALBUMIN: CREATININE RATIO Comments: PATIENT WAS FASTINGPERFORMED BY: PatreonMissouri Southern HealthcareVsdeos0424 [facility] [place] [id number] (23410) AND (54629) Microalb/Creat Ratio 24.2 {mg/g_creat} (Normal) Range: 0.0-30.0 Microalbumin, Urine 37.1 ug/mL (Abnormal) Range: 0.0-17.0 Creatinine, Urine 153.6 mg/dL (Normal) Range: 15.0-278.0 :09 METABOLIC PANEL, COMPREHENSIVE Comments: PATIENT WAS FASTINGPERFORMED BY: eBuilder Innjoj1127 [facility] [place] [id number] (60711) ALT (SGPT) 9 [iU]/L (Normal) Range: 0-32 [...] Glucose, Serum 150 mg/dL (Abnormal) Range: 65-99 34-Pge-89410:09 CBC WITH MANUAL DIFF Comments: PATIENT WAS FASTINGPERFORMED BY: [facility]6370 [facility] [id number] Information: [id number] (29319) Immature Grans (Abs) 0.0 {x10E3/uL} (Normal) Range: [...] {x10E3/uL} (Normal) Range: 3.4-10.8 :09 LIPID PANEL (08472) Comments: PATIENT WAS FASTINGPERFORMED BY: LabHealthsource [place]6370 [facility] [id number] VLDL Cholesterol Jyoti VLDLCH mg/dL (Normal) Range: [...] (Normal) Range: 100-199 :23 HgA1C , Office (90476) HgA1C , Office 7.2 % (Abnormal) Range: [...] Babcock M.D.November 02, 2012 at 3:41:31 PM [id number] Signed GP/GP If you are the referring physician and would like to consult with theradiologist who provided this interpretation, please contact Imani Hayes at [phone]. If this radiologist is unavailable, youwill be directed to another radiologist to assist. If you are a patient with a question regarding this report, pleasecontactyour referring p carlos directly. Professional Interpretation Provided By: Dwolla, Phone , These documents contain legally protected [...] on 11/02/121543 Sign by: John Babcock MD 05-Fxs-533076:33 MICROALBUMIN: CREATININE RATIO Comments: PATIENT WAS FASTINGPERFORMED BY: ScrippedRutgers - University Behavioral HealthCareRkxpfl5045 [facility] [id number] (38745) AND (57905) Microalb/Creat Ratio 31.2 {mg/g_creat} (Abnormal) Range: 0.0-30.0 Microalbumin, Urine 44.7 ug/mL (Abnormal) Range: 0.0-17.0 Creatinine, Urine 143.3 mg/dL (Normal) Range: 15.0-278.0 83-Nad-745825:33 CBC WITH MANUAL DIFF Comments: PATIENT WAS FASTINGPERFORMED BY: Scripped Smxjoj2144 [facility] [id number] Information: [id number] (37507) Immature Grans (Abs) 0.0 {x10E3/uL} (Normal) Range: [...] 3.77-5.28 WBC 6.9 {x10E3/uL} (Normal) Range: 3.4-10.8 80-Ezk-587756:33 METABOLIC PANEL, COMPREHENSIVE Comments: PATIENT WAS FASTINGPERFORMED BY: [facility]6370 [facility] [id number] (22198) ALT (SGPT) 10 [iU]/L (Normal) Range: 0-32 [...] Glucose, Serum 158 mg/dL (Abnormal) Range: 65-99 55-Qsm-174195:33 VITAMIN B-12 (CYANOCOBALAMIN) Comments: PATIENT WAS FASTINGPERFORMED BY: [facility] [id number] (43176) Vitamin B12 >1999 pg/mL (Abnormal) Range: 211-946 79-Nig-016563:33 IRON BINDING CAPACITY (TIBC) Comments: PATIENT WAS FASTINGPERFORMED BY: [employer] [id number] (06306) Iron Saturation 16 % (Normal) Range: 15-55 Iron, Serum 59 ug/dL (Normal) Range: 35-155 UIBC 315 ug/dL (Normal) Range: 150-375 Iron Bind.Cap.(TIBC) 374 ug/dL (Normal) Range: 250-450 33-Dgh-166783:33 FERRITIN (61488) Comments: PATIENT WAS FASTINGPERFORMED BY: [facility] [id number] Ferritin, Serum 29 ng/mL (Normal) Range: 15-150 09-Fot-585671:33 HEPATIC FUNCTION PANEL Comments: PATIENT WAS FASTINGPERFORMED BY: [employer] [facility] [id number] (56885) Bilirubin, Direct 0.12 mg/dL (Normal) Range: 0.00-0.40 38-Iew-356934:33 LIPID PANEL (64817) Comments: PATIENT WAS FASTINGPERFORMED BY: [facility] [id number] VLDL Cholesterol Jyoti VLDLCH mg/dL (Normal) Range: [...] (Normal) Range: 100-199 :33 Vitamin D Hydroxy (55756) Comments: PATIENT WAS FASTINGPERFORMED BY: LabCoRutgers - University Behavioral HealthCarePfpdjp4784 [facility] [id number] Vitamin D, 25-Hydroxy 21.3 ng/mL (Abnormal) Range: 30.0-100.0 Comments: Vitamin D deficiency has been defined by the [place]icine and an Endocrine Society practice guideline as alevel of serum 25-OH vitamin D less than 20 ng/mL (1,2).The Endocrine Society went on to further define vitamin Dinsufficiency as a level between 21 and 29 ng/mL (2).1. IOM ([place] of Medicine). 2010. Dietary reference intakes for calcium and D. [place]: The National Academies Press.2. Bobo MF, Estrellita STOCKTON, Maddi CALIX, et al. Evaluation, treatment, and prevention of vitamin D deficiency: an Endocrine Society clinical practice guideline. JCEM. 2010; 96(7):1911-30. :22 HgA1C , Office (63415) HgA1C , Office 6.8 % (Normal) Range: [...] Babcock M.D.August 18, 2012 at 3:19:26 PM [id number] Signed GP/GP If you are the referring physician and would like to consult with theradiologist who provided this interpretation, please contact Imani Hayes at [phone]. If this radiologist is unavailable, youwill be directed to another radiologist to assist. If you are a patient with a question regarding this report, pleasecontactyour referring physician directly. Professional Interpretation Provided By: Dwolla, Phone , These documents contain legally protected [...] 08/18/12 1522 Sign by: John Babcock MD 8-Gbr-443687:40 BILAT SCRN DIGITAL & CAD Radiology Report [...] Signed:John Babcock M.D.August 18 at 1:37:33 PM [id number] Signed GP/GP If you are the referring physician and would like to consult with theradiologist who provided this interpretation, please contact Sunil louis M.D. at [phone]. If this radiologist is unavailable, youwill be directed to another radiologist to assist. If you are a patient with a question regarding this report, pleasecontactyour referr ing physician directly. Professional Interpretation Provided By: Dwolla, Phone , These documents contain legally protected [...] 08/18/12 1400 Sign by: John Babcock MD 3-Nsr-864949:36 VERT FX ASSESS/LAT BONE DEN(H) Radiology Report [...] Babcock M.D.August 20, 2012 at 2:14:56 PM [id number] Signed GP/GP If you are the referring physician and would like to consult with jacqueline moya who provided this interpretation, please contact Imani Hayes at [phone]. If this radiologist is unavailable, youwill be directed to another radiologist to assist. If you are a clarice ent with a question regarding this report, pleasecontactyour referring physician directly. Professional Interpretation Provided By: Dwolla, Phone , These documents con tain legally [...] 08/20/12 141 Sign by: John Babcock MD 43-Bea-66480:10 LIPID PANEL (01746) Comments: PATIENT WAS FASTINGPERFORMED BY: [facility] Bbjdzb8813 [facility] [id number] VLDL Cholesterol Jyoti VLDLCH mg/dL (Normal) Range: [...] Cholesterol, Total 183 mg/dL (Normal) Range: 100-199 69-Vqs-73072:10 METABOLIC PANEL, COMPREHENSIVE Comments: PATIENT WAS FASTINGPERFORMED BY: Apertiolin6370 [facility] [id number] (63340) ALT (SGPT) 5 [iU]/L (Normal) Range: 0-32 [...] Glucose, Serum 133 mg/dL (Abnormal) Range: 65-99 57-Euv-48824:10 IRON BINDING CAPACITY (TIBC) Comments: PATIENT WAS FASTINGPERFORMED BY: ScrippedRutgers - University Behavioral HealthCareMttrvx1202 [facility] [id number] (75160) Iron Saturation 15 % (Normal) Range: 15-55 Iron, Serum 53 ug/dL (Normal) Range: 35-155 UIBC 308 ug/dL (Normal) Range: 150-375 Iron Bind.Cap.(TIBC) 361 ug/dL (Normal) Range: 250-450 :10 FERRITIN (81727) Comments: PATIENT WAS FASTINGPERFORMED BY: LabCoRut[facility] - [facility] Behavioral HealthCareUigswy0583 [facility] [id number] Ferritin, Serum 25 ng/mL (Normal) Range: 15-150 34-Lqn-80362:10 VITAMIN B-12 (CYANOCOBALAMIN) Comments: PATIENT WAS FASTINGPERFORMED BY: [facility] Xrcwvf5644 [facility] [id number] (37589) Vitamin B12 258 pg/mL (Normal) Range: 211-946 97-Ydc-09375:10 CBC WITH MANUAL DIFF Comments: PATIENT WAS FASTINGPERFORMED BY: LabCoR[facility] Behavioral HealthCareQfvhdr3081 [facility] [id number] Information: ADD [id number] AND DRAW FEE 99 4787 (78351) Immature Grans (Abs) 0.0 {x10E3/uL} (Normal) Range: [...] 3.77-5.28 WBC 7.1 {x10E3/uL} (Normal) Range: 4.0-10.5 41-Hyw-17910:10 Vitamin D Hydroxy (73162) Comments: PATIENT WAS FASTINGPERFORMED BY: [facility] Svtxsg5155 Ryan RoadDublin [place] [id number] Vitamin D, 25-Hydroxy 20.4 ng/mL (Abnormal) Range: 30.0-100.0 Comments: Vitamin D deficiency has been defined by the [place] and an Endocrine Society practice guideline as alevel of serum 25-OH vitamin D less than 20 ng/mL (1,2).The Endocrine Society went on to further define vitamin Dinsufficiency as a level between 21 and 29 ng/mL (2).1. IOM ([place] of [place]). 2010. Dietary reference intakes for calcium and D. [place]: The National Academies Press.2. Bobo MF, Estrellita [place], Maddi CALIX, et al. Evaluation, treatment, and prevention of vitamin D deficiency: an Endocrine Society clinical practice guideline. JCEM. 2010; 96(7):1911-30. 2-Ncv-829839:08 IRON (72286) Comments: PATIENT WAS FASTINGPERFORMED BY: [facility] Fekwvu8289 [address] [facility] RegionD[place] [id number] Iron, Serum 58 ug/dL (Normal) Range: 35-155 7-Bzi-909411:08 FERRITIN (19910) Comments: PATIENT WAS FASTINGPERFORMED BY: [facility] Fxyoqu2889 [address] [facility] RegionD[place] [id number] Ferritin, Serum 25 ng/mL (Normal) Range: 13-150 8-Ibb-674038:08 VITAMIN B-12 (CYANOCOBALAMIN) Comments: PATIENT WAS FASTINGPERFORMED BY: [employer] Gyvxwg1530 [address] [facility] Systembl[facility] [place] [id number] (01567) Vitamin B12 390 pg/mL (Normal) Range: 211-946 6-Nls-368374:08 Vitamin D Hydroxy (58709) Comments: PATIENT WAS FASTINGPERFORMED BY: [facility]Health[facility] [place]6370 [facility] [id number] Vitamin D, 25-Hydroxy 25.3 ng/mL (Abnormal) Range: 30.0-100.0 Comments: Vitamin D deficiency has been defined by the [place] and an Endocrine Society practice guideline as alevel of serum 25-OH vitamin D less than 20 ng/mL (1,2).The Endocrine Society went on to further define vitamin Dinsufficiency as a level between 21 and 29 ng/mL (2).1. IOM ([place]). 2010. Dietary reference intakes for calcium and D. [place]: The National Academies Press.2. Bobo MF, Estrellita STOCKTON, Maddi CALIX, et al. Evaluation, treatment, and prevention of vitamin D deficiency: an Endocrine Society clinical practice guideline. JCEM. 2010; 96(7):1911-30. 2-Xdu-852778:08 METABOLIC PANEL, COMPREHENSIVE Comments: PATIENT WAS FASTINGPERFORMED BY: PatreonCoMimbres Memorial HospitalKzrnoq3768 [facility] [id number] (83996) ALT (SGPT) 6 [iU]/L (Normal) Range: 0-32 [...] Glucose, Serum 124 mg/dL (Abnormal) Range: 65-99 1-Bhp-813073:08 CBC WITH MANUAL DIFF Comments: PATIENT WAS FASTINGPERFORMED BY: LabHealth[facility] [place]6370 [facility] [id number] Information: [id number] (74937) Immature Grans (Abs) 0.0 {x10E3/uL} (Normal) Range: [...] 3.77-5.28 WBC 8.2 {x10E3/uL} (Normal) Range: 4.0-10.5 4-Ofr-752125:08 LIPID PANEL (58498) Comments: PATIENT WAS FASTINGPERFORMED BY: [facility] [place]6370 [facility] [id number] VLDL Cholesterol Jyoti VLDLCH mg/dL (Normal) Range: [...] Cholesterol, Total 166 mg/dL (Normal) Range: 100-199 5-Rua-931220:56 HgA1C , Office (44109) HgA1C , Office 7.4 % (Abnormal) Range: 4.6 - 7.1 6-Pqh-474060:56 Blood Glucose , Office (55973) Blood Glucose , Office 142 (Normal) 22-Qzm-725220:40 CBCMD RBCM NORM C+C {NORMAL} (Normal) EOS [...] 4.2-5.4 WBC 11.2 K/mm3 (Abnormal) Range: 4.4-11.0 56-Zge-543823:40 CMP GAP 7 (Normal) Range: 5-15 CL [...] mg/dL suggests DIABETES MELLITUS per A.D.A. criteria. 30-Oiq-10080:04 CHEST WITH CONTRAST Radiology Report See Note [...] Babcock M.D.November 07, 2011 at 1:33:21 PM [phone] Signed GP/GP If you ar e the referring physician and would like to consult with theradiologist who provided this interpretation, please contact Imani Hayes at [phone]. If this radiologist is unavailable, youw ill [...] 11/07/11 1340 Sign by: John Babcock MD 97-Ood-454618:41 Pathology Report Comments: PERFORMED BY: KWCYT [facility] [place] Dhwq44604 [facility] [id number] BY: MICHAEL [facility] Mcqmspi19748 [facility] [id number] Information: [id number] See MATER Comments: Material submitted: .SHAVE BIOPSY [...] ARE SUBMITTEDIN TWO CASSETTES, A1 AND A2.COR/TMZCPT .324180 30-Tmv-847258:06 CBC WITH MANUAL DIFF Comments: PATIENT NOT FASTINGPERFORMED BY: BELKYS [facility] Etbzwi3116 Shelby RoadDublDeaconess Hospital Union County [id number] Information: [id number] (31500) Immature Grans (Abs) 0.0 {x10E3/uL} (Normal) Range: [...] 3.77-5.28 WBC 7.9 {x10E3/uL} (Normal) Range: 4.0-10.5 52-Jpd-637766:06 LDH (LD) (LACTATE DEHYDROGENASE) Comments: PATIENT NOT FASTINGPERFORMED BY: [facility]6370 [facility] [id number] (96755) LDH 198 [iU]/L (Normal) Range: 0-214 38-Gyt-612096:06 IRON BINDING CAPACITY (TIBC) Comments: PATIENT NOT FASTINGPERFORMED BY: [facility]6370 [facility] [id number] (98254) Iron Saturation 11 % (Abnormal) Range: 15-55 Iron, Serum 46 ug/dL (Normal) Range: 35-155 UIBC 389 ug/dL (Abnormal) Range: 150-375 Iron Bind.Cap.(TIBC) 435 ug/dL (Normal) Range: 250-450 82-Pre-170346:06 FERRITIN (15813) Comments: PATIENT NOT FASTINGPERFORMED BY: LabCoRutgers - University Behavioral HealthCareMizkmy2069 [facility] [id number] Ferritin, Serum 12 ng/mL (Abnormal) Range: 13-150 5-Mkt-667738:03 HgA1C , Office (86263) HgA1C , Office 7.1 % (Normal) Range: 4.6 - 7.1 :34 CBC WITH MANUAL DIFF (60281) Comments: PATIENT WAS FASTINGPERFORMED BY: LabCoR[facility] - [facility] Behavioral HealthCareJfwwbr7599 [facility] [id number] Immature Grans (Abs) 0.0 {x10E3/uL} (Normal) Range: [...] 3.77-5.28 WBC 8.3 {x10E3/uL} (Normal) Range: 3.4-10.8 8-Ede-746902:11 FECAL OCCULT- Tubes sent home (85882) FECAL OCCULT HGB ASSAY, QUAL, 1-3 SIMULTANEOU positive (Normal) :30 HgA1C , Office (50411) HgA1C , Office 7.3 % (Abnormal) Range: [...] mg/dL suggests DIABETES MELLITUS per A.D.A. criteria. 35-Abo-470199:09 MIACRE tMICROCREAT 70.2 {mg/g_CRE} (Abnormal) MIALB 76.8 mg/L (Normal) CREU 109.3 mg/dL (Normal) 32-Elc-441711:09 VITD 23.9 ng/mL (Abnormal) Comments: appt 05-14-11 Range: 30.0-100.0 Comments: Vitamin D deficiency has been defined by the [place] of[place]icine and an Endocrine Society practice guideline as alevel of serum 25-OH vitamin D less than 20 ng/mL (1,2).The Endocrine Society went on to further define vitamin Dinsufficiency as a level between 21 and 29 ng/mL (2).1. IOM ([place] of [place]). 2010. Dietary reference intakes for calcium and D. [place]: The National Academies Press.2. Bobo VALLES, Estrellita STOCKTON, Maddi CALIX, et al. Evaluation, treatment, and prevention of vitamin D deficiency: an Endocrine Society clinical practice guideline. JCEM. 2010; 96(7): 1911-30.Performed at: [facility] - [address] [id number] Director: Charisma Hamilton MD, Phone: [phone] 7-Ncy-769638:21 CHEST WITHOUT CONTRAST Radiology Report See Note [...] regarding this report, please jyoti edison matteo [id number] line @ Dictated on 02/15/111125 by Boone Alarcon DOribed on 02/15/111732 by ITS IMPORTSign by Emery Alarcon DO on 02/15/111733 Sign by: Emery Alarcon DO 6-Hht-594514:30 HgA1C , Office (31651) HgA1C , Office 7.4 % (Abnormal) Range: 4.6 - 7.1 8-Ikz-524675:30 Blood Glucose , Office (03652) Blood Glucose , Office 153 (Normal) 6-Vbg-588144:07 CHEST, PA AND LATERAL Radiology Report See [...] on 08/17/102122 Sign by: ANNAMARIE WOODWARD MD 11-Jkd-766223:01 HgA1C , Office (90231) HgA1C , Office 7.9 % (Abnormal) Range: 4.6 - 7.1 25-Yhj-852474:01 Blood Glucose , Office (71345) Blood Glucose , Office 133 (Normal) :52 [...] CREAT 107.1 mg/dL (Normal) :52 VIT D,25 81686 19.0 ng/mL (Abnormal) Range: 32.0-100.0 Comments: Recent studies consider the lower limit of 32.0 ng/mL to helena threshold for optimal health.Sunday [place]. J Nutr. 2004;135(2):317-22.Performed at: [facility] [place] [address] [place], [place] [address] 296Lab Director: Charisma Hamilton MD, Phone: [phone] :[phone] VITAMIN B12 447 pg/mL (Normal) Range: 254-1320 Comments: There is a low frequency possibility that high titers ofintrinsic blocking antibodies may not be completely inactivated during the reaction pretreatment stepof this testing method. If test results are i n conflictwith the clinical diagnosis, patient should be testedfor the presence of intrinsic factor blocking antibodies. 36-Bqo-512199:02 BILAT SCRN DIGITAL & CAD Radiology Report [...] on 04/05/10 0305 Sign by: KEYA TREJO 09-Syo-341574:02 DEXA BONE DENSITY STUDY (HP) Radiology Report See Note (Normal) Comments: CLINICAL:Female, 69 years old. The patient is postmenopausal. EXAMINATION:DUAL ENERGY X-RAY ABSORPTIOMETRY / DEXA. TECHNIQUE:Bone Mineral Density (BMD) measurements of lumbar spine and bila teralhipswer e obtained using a Mytopia scanner.. COMPARISON:Comparison is made with prior examination [...] on 04/04/10 1138 Sign by: John Babcock 07-Qov-35092:28 HgA1C , Office (28881) HgA1C , Office 8.2 % (Abnormal) Range: 4.6 - 7.1 :28 Blood Glucose , Office (08307) Blood Glucose , Office 205 (Normal) :27 [...] CHOL 169 mg/dL (Normal) Comments: <200 mg/dL Zbsnmhdvq855-950 mg/dL Borderline>240 mg/dL High Risk HDL 24 [...] the presence of intrinsic factor blocking antibodies. 8-Bce-163434:47 CHEST WITHOUT CONTRAST Radiology Report See Note (Normal) Comments: Exam Number: [id number] CT SCAN OF THE THORAX Multiple axial [...] unchanged as well. Reported By: JOHN BABCOCK 21-Mtd-923902:27 VITAMIN B-12 (CYANOCOBALAMIN) Comments: PATIENT NOT FASTINGPERFORMED BY: [facility] Ifgydb6472 [place] [id number] (55028) Vitamin B12 338 pg/mL (Normal) Range: 211-946 Comments: Please note reference interval change 15-Ezo-164231:27 Vitamin D Hydroxy (82790) Comments: PATIENT NOT FASTINGPERFORMED BY: [facility] Guawfj1874 Ryan RoadDublin [place] [id number] Vitamin D, 25-Hydroxy 17.2 ng/mL (Abnormal) Range: 32.0-100.0 Comments: Recent studies consider the lower limit of 32.0 ng/mL to be athreshold for optimal health.Sunday [place]. J Nutr. 2004;135(2):317-22. :27 CBC WITH MANUAL DIFF Comments: PATIENT NOT FASTINGPERFORMED BY: [employer] Uxymak0447 [facility] [id number] Information: [id number] (15975) Baso (Absolute) 0.0 {x10E3/uL} (Normal) Range: 0.0-0.2 [...] COMPREHENSIVE Comments: PATIENT NOT FASTINGPERFORMED BY: [facility] Aiehmd1319 [facility] [id number] (32227) ALT (SGPT) 7 [iU]/L (Normal) Range: 0-40 [...] Range: 65-99 :38 Blood Glucose , Office (43763) Blood Glucose , Office 133 (Normal) :57 [...] CHOL 186 mg/dL (Normal) Comments: <200 mg/dL Szupmtrdi158-004 mg/dL Borderline>240 mg/dL High Risk 46-Ljs-30352:57 LIVER ALT 9 U/L (Abnormal) Range: 12-78 D BILI 0.10 mg/dL (Normal) Range: 0.00-0.30 T BILI 0.20 mg/dL (Normal) Range: 0.00-1.00 ALB 3.7 g/dL (Normal) Range: 3.4-5.0 ALK P 51 U/L (Normal) Range: 50-136 AST 6 U/L (Abnormal) Range: 15-37 T PROT 7.3 g/dL (Normal) Range: 6.4-8.2 08-Fvp-227599:17 KNEE,4 OR MORE VIEWS (MT) Radiology Report See Note (Normal) Comments: Exam Number: [id number] CLINICAL:Medial pain X-RAY EXAMINATION RIGHT KNEE TECHNIQUE: [...] Report See Note (Normal) Comments: Exam Number: [id number] NONCONTRAST CHEST CT Comparison is made with [...] difficile Toxins Negative (Normal) Comments: PERFORMED BY: [employer] [facility] [id number] :51 A+B, EIA :51 Ova + Parasite Exam Comments: PERFORMED BY: [employer] [facility] [id number] Ova + Parasite Exam Final report (Normal) Comments: These results were obtained using wet preparation(s) and trichromestained smear. This test does not include testing for Cryptosporidiumparvum, Cyclospora, or Microsporidia. Result 1 NOCP (Normal) Comments: No ova, cysts, or parasites seen. :51 Stool Culture Comments: Clinical Information: SRC:ST PERFORMED BY: [employer] [facility] [facility] [id number] Campylobacter Culture Final report (Normal) E coli Shiga Toxin EIA Negative (Normal) Result 1 NCI (Normal) Comments: No Campylobacter species isolated. Result 1 NSS (Normal) Comments: No Salmonella or Shigella recovered. Salmonella/Shigella Screen Final report (Normal) :51 White Blood Cells (WBC), Comments: PERFORMED BY: [employer] Sequzc7437 [facility] [id number] Stool Result 1 NWBC (Normal) Comments: No white blood cells seen. White Blood Cells (WBC), Final report (Normal) Comments: Reference Range: None Seen Stool :52 CBC With Differential/Platelet Comments: PATIENT WAS FASTINGPERFORMED BY: [employer] Georvw0009 [facility] [id number] Baso (Absolute) 0.0 {x10E3/uL} (Normal) Range: 0.0-0.2 [...] 11.7-15.0 WBC 5.2 {x10E3/uL} (Normal) Range: 4.0-10.5 95-Qlb-987898:52 Comp. Metabolic Panel (14) Comments: PATIENT WAS FASTINGPERFORMED BY: LabCoRut[facility] Behavioral HealthCareNktbva8529 [facility] [id number] A/G Ratio 1.6 (Normal) Range: 1.1-2.5 Albumin, [...] Glucose, Serum 145 mg/dL (Abnormal) Range: 65-99 08-Blm-854283:52 Lipid Panel With LDL/HDL Comments: PATIENT WAS FASTINGPERFORMED BY: [facility]XFirst[facility] [id number] Ratio Cholesterol, Total 135 mg/dL (Normal) Range: [...] pg/mL (Normal) Comments: PATIENT WAS FASTINGPERFORMED BY: [facility]leXFirst[facility] [id number] 0:52 Range: 211-911 Vitamin D, 25-Hydroxy 13.6 ng/mL Comments: PATIENT WAS FASTINGPERFORMED BY: BELKYS [facility] Dnpeys0188 [facility] [id number] 0:52 (Abnormal) Range: 32.0-100.0 Comments: Recent studies consider the lower limit of 32.0 ng/mL to be athreshold for optimal health.Sunday [place]. J Nutr. 2004;135(2):317-22. :32 HgA1C , Office (41938) HgA1C , Office 6.9 % (Normal) Range: 4.6 - 7.1 :32 Blood Glucose , Office (03633) Blood Glucose , Office 179 (Normal) 73-Tfn-155207:25 ABDOMEN LIMITED US () Radiology Report See Note (Normal) Comments: Exam Number: [id number] CLINICAL:Abdominal pain. LIMITED ABDOMINAL ULTRASOUND COMPARISON:None. FINDINGS: [...] of cholecystitis. Reported By: HALIMA TURNER M.D. 4-Hbb-700577:35 Urinalysis, Office (45823) UA - BILIRUBIN Moderate (Normal) UA - [...] (14) Comments: PATIENT NOT FASTINGPERFORMED BY: [facility] Raaocf5943 [facility] [id number] A/G Ratio 1.3 (Normal) Range: 1.1-2.5 Albumin, [...] (7) Comments: PATIENT NOT FASTINGPERFORMED BY: [facility] Unvwpo3058 [facility] [id number] Bilirubin, Direct 0.17 mg/dL (Normal) Range: 0.00-0.40 [...] g/dL (Normal) Range: 6.4-8.2 :27 VIT D,25 87798 16.4 ng/mL (Abnormal) Comments: ORDERED LIPID,LIVER ALSO Range: 32.0-100.0 Comments: Recent studies consider the lower limit of 32.0 ng/mL to helena threshold for optimal health.Sunday BETT[place]RT. J Nutr. 2004;135(2):317-22.Performed At: [address] [id number] :27 VITAMIN B12 430 pg/mL (Normal) Comments: ORDERED LIPID,LIVER ALSO Range: 254-1320 49-Hiu-681128:01 BRAIN/HEAD W/WO CONTRAST Radiology Report See Note (Normal) Comments: Exam Number: [id number] CT OF THE HEAD WITH AND WITHOUT CONTRAST YGEQRRO60-vppz-oak woman who has had vague symptoms of [...] 02, 2008. Reported By: THANH ANNE M.D. 08-Rxs-74745:51 CBCD,SMEAR DIFF CELLS COUNTED 100 (Normal) EOS [...] mg/dL (Normal) Range: 0.00-0.30 :51 VIT D,25 49834 6.3 ng/mL (Abnormal) Range: 32.0-100.0 Comments: Recent studies consider the lower limit of 32.0 ng/mL to helena threshold for optimal health.Sunday BETT[place]RT. J Nutr. 2004;135(2):317-22.Performed At: [facility]6[address] [place], [place] [id number] :51 VITAMIN B12 301 pg/mL (Normal) Range: 211-911 :43 CHEST WITHOUT CONTRAST Radiology Report See Note (Normal) Comments: Exam Number: [id number] CLINICAL: Nodules CT CHEST WITHOUT CONTRAST COMPARISON:April [...] cardiopulmonary disease Reported By: RIO KAY M.D. 78-Dma-218206:13 HgA1C , Office (32741) HgA1C , Office 7.5 % (Abnormal) Range: 4.6 - 7.1 56-Vgp-109069:13 Blood Glucose , Office (78065) Blood Glucose , Office 203 (Normal) Antiparietal Cell 2.2 {Units} Comments: PERFORMED BY: [address] [id number] 0:04 Antibody (Normal) Range: 0.0-20.0 Comments: Negative 0.0 - 20.0 Equivocal 20.1 - 24.9 Positive >24.9 . Parietal Cell Antibodies are found in 90% of patients with pernicious anemia and 30% of first degree relatives with pernicious anemia. 90-Amo-162043:04 CBC With Differential/Platelet Comments: PERFORMED BY: [facility] [id number] Baso (Absolute) 0.0 {x10E3/uL} Range: 0.0-0.2 (Normal) [...] Factor Abs, Negative (Normal) Comments: PERFORMED BY: [facility] [id number] 0:04 Serum Vitamin B12 472 pg/mL (Normal) Comments: PERFORMED BY: [facility] [id number] 0:04 Range: 211-911 :32 Fecal Occult Blood , Office (87770) Fecal Occult Blood Negative (Normal) , Office Ferritin, Serum 21 ng/mL (Normal) Comments: PATIENT NOT FASTINGPERFORMED BY: [facility] WiseStampFirstHealth [facility] [id number] :21 Range: 10-291 Folate (Folic >24.0 ng/mL (Normal) Comments: PATIENT NOT FASTINGPERFORMED BY: [facility] WiseStampFirstHealth [facility] Hospital [id number] :21 Acid), Serum Comments: Indeterminate: 3.4 - 5.4 Deficient: <3.4 :21 Iron and TIBC Comments: PATIENT NOT FASTINGPERFORMED BY: [facility] WiseStampFirstHealth [facility] Hospital [id number] Iron Bind.Cap.(TIBC) 377 ug/dL (Normal) Range: 250-450 Iron Saturation 13 % (Abnormal) Range: 15-55 Iron, Serum 49 ug/dL (Normal) Range: 35-155 UIBC 328 ug/dL (Normal) Range: 150-375 LDH 145 [iU]/L (Normal) Comments: PATIENT NOT FASTINGPERFORMED BY: [facility] WiseStampFirst[facility] [id number] :21 Range: 100-250 Reticulocyte Count 2.1 % (Normal) Comments: PATIENT NOT FASTINGPERFORMED BY: [facility] WiseStampFirstHealth [facility] [id number] :21 Range: 0.5-3.0 Vitamin B12 182 pg/mL Comments: PATIENT NOT FASTINGPERFORMED BY: LabCoR[facility] Behavioral HealthCareKatigo5086 [facility] [id number] :21 (Abnormal) Range: 211-911 :33 HgA1C , Office (87336) Comments: done>Wf. HgA1C , Office 6.8 % (Normal) Range: 4.6 - 7.1 :33 Blood Glucose , Office (26685) Comments: done>Wf. Blood Glucose , Office 150 [...] mg/dL VLDL 54 mg/dL (Abnormal) Range: 5-40 27-Zqk-487287:06 LIVER Comments: SEND A COPY OF THE LIPID AND LIVER RESULTSONLY. JLG ALB 3.6 g/dL (Normal) Range: 3.4-5.0 ALK P 47 U/L (Abnormal) Range: 50-136 ALT 25 U/L (Abnormal) Range: 30-65 AST 14 U/L (Abnormal) Range: 15-37 D BILI 0.06 mg/dL (Normal) Range: 0.00-0.30 T BILI 0.31 mg/dL (Normal) Range: 0.00-1.00 T PROT 6.7 g/dL (Normal) Range: 6.4-8.2 31-Phj-161646:27 BILAT SCRN DIGITAL & CAD Radiology Report See Note (Normal) Comments: Exam Number: [id number] MAMMOGRAM, BILATERAL SCREENING DIGITAL AND CAD HISTORYRoutine [...] kailash werealso examined with computer-aided detection software ([employer] Reported By: KEYA TREJO M.D. 32-Cyz-913474:27 DEXA BONE DENSITY STUDY (HP) Radiology Report See Note (Normal) Comments: Exam Number: [id number] BONE DENSITOMETRY HISTORYPostmenopausal. TECHNIQUE Bone densitometry of the lumbar spine and left hip was performed. Thebest criteria for evaluation of osteoporosis is the T- value, whichrepresents the comparison of the patient's bone mass to an expectedpeak bone mass. For most patients, the mean T-value of L1 through L4is used to evaluate the lumbar spine. Based on the [facility] WorldHealth Organization classifications, the [...] left hip. Reported By: KEYA TREJO M.D. 96-Gbx-670505:46 HgA1C , Office (10599) HgA1C , Office 6.7 % (Normal) Range: 4.6 - 7.1 09-Hkp-194949:46 Blood Glucose , Office (31750) Blood Glucose , Office 170 (Normal) :46 [...] Report See Note (Normal) Comments: Exam Number: [id number] RIGHT KNEE CLINICAL INFORMATIONKnee pain. Standing AP [...] Report See Note (Normal) Comments: Exam Number: [id number] CT CHEST NONCONTRAST CLINICAL STATEMENTFollow of lung [...] RICHARD CANADA M.D. :33 HgA1C , Office (75824) HgA1C , Office 6.5 % (Normal) Range: 4.6 - 7.1 :33 Blood Glucose , Office (94475) Blood Glucose , Office 89 (Normal) :34 [...] Range: 6.4-8.2 :17 Blood Glucose , Office (29522) Blood Glucose , Office 175 (Normal) :41 [...] Report See Note (Normal) Comments: Exam Number: [id number] CT SCAN OF CHEST HISTORYCough. Consecutive axial [...] is suggested. Reported By: KEYA TREJO M.D. 5-Zcx-417191:45 HgA1C , Office (26507) Comments: [facility] HgA1C , Office 6.6 % (Normal) Range: 4.6 - 7.1 :45 Blood Glucose , Office (86897) Comments: [facility] Blood Glucose , Office 105 (Normal) [...] Report See Note (Normal) Comments: Exam Number: [id number] CHEST PA AND LATERAL STATEMENTCough and pneumonia. [...] CHIVO MONIQUE M.D. :41 HgA1C , Office (60668) HgA1C , Office 6.8 % (Normal) Range: 4.6 - 7.1 :41 Blood Glucose , Office (65675) Blood Glucose , Office 126 (Normal) 62-Glw-077143:11 CBCD,SMEAR DIFF CELLS COUNTED 100 (Normal) EOS [...] 47-70 WBC 7.4 K/mm3 (Normal) Range: 4.4-11.0 68-Jji-809448:11 COMP METABOLIC A/G 1.1 {RATIO} (Normal) Range: [...] T PROT 7.1 g/dL (Normal) Range: 6.4-8.2 24-Jii-965416:11 COMPLETE UA BACTERIA 0 SEEN {/hpf} (Normal) [...] (Normal) Range: 0-5 Comments: Result: 0-5 SEEN 58-Zdc-980435:11 MICROALBUMIN,UR 9.1 mg/L (Normal) :11 PFLIP CHOL [...] mg/dL VLDL 58 mg/dL (Abnormal) Range: 5-40 87-Whp-075654:11 TSH 0.85 {uIU/mL} (Normal) Range: 0.34-4.82 :11 HgA1C , Office (75160) HgA1C , Office 6.7 % (Normal) Range: 4.6 - 7.1 :11 Blood Glucose , Office (49367) Blood Glucose , Office 153 (Normal) Plan of Care Name Dates Details Instructions Diabetes mellitus type II, controlled : Follow up in 3 months Indication: Diabetes mellitus type II, controlled Asthma : Reviewed [employer] Letter Indication: Asthma Coronary artery disease : Reviewed [employer] Letter Indication: Coronary artery disease Hypertensive heart disease without heart failure : HTN/CAD Red Flags Indication: Hypertensive heart disease without heart failure ATRIAL FIBRILLATION (Renamed from A-fib) : Reviewed [employer] Letter Indication: ATRIAL FIBRILLATION (Renamed from A-fib) Type 2 diabetes mellitus, uncontrolled : Follow up in 3 months Indication: Type 2 diabetes mellitus, uncontrolled Coronary artery disease : Reviewed [employer] Letter Indication: Coronary artery disease Hypertensive heart [...] heart failure Coronary artery disease : Reviewed [employer] [place] [employer] Letter Indication: Coronary artery disease Diabetes mellitus [...] ATRIAL FIBRILLATION (Renamed from A-fib) : Reviewed [employer] Letter Indication: ATRIAL FIBRILLATION (Renamed from A-fib) [...] ATRIAL FIBRILLATION (Renamed from A-fib) : Reviewed [employer] Letter Indication: ATRIAL FIBRILLATION (Renamed from A-fib) Type 2 diabetes mellitus, uncontrolled : Follow up in 3 months Indication: Type 2 diabetes mellitus, uncontrolled Gout, arthritis : Reviewed Lab Indication: Gout, arthritis Asthma : Reviewed [employer] Letter Indication: Asthma Type 2 diabetes mellitus, uncontrolled : *Diabetes Education Indication: Type 2 diabetes mellitus, uncontrolled Coronary artery disease : Reviewed [employer] Letter Indication: Coronary artery disease Mixed dyslipidemia [...] Indication: Asthma Coronary artery disease : Reviewed [employer] [place] [employer] Letter Indication: Coronary artery disease Hypertensive heart [...] meninges : Follow up on Friday with [facility] Indication: Benign neoplasm of cerebral meninges [...] : Follow up in 10 days with [facility] Indication: Cough Laryngitis : Laryngitis Education [...] pelvic and bimanual performed Planned Observations TSH (15499)Indication: Diabetes mellitus type II, controlled On: :15 Request URINALYSIS, W/ MICRO (29979)Indication: Diabetes mellitus type II, controlled On: :15 Request MICROALBUMIN: CREATININE RATIO (03454) AND (67900)Indication: Diabetes mellitus type II, controlled On: :15 Request METABOLIC PANEL, COMPREHENSIVE (45793)Indication: Diabetes mellitus type II, controlled On: :15 Request CBC W/AUTO DIFF WBC (51465)Indication: Diabetes mellitus type II, controlled On: :15 Request LIPOPROTEIN, BLD, BY NMR (78221)Indication: Diabetes mellitus type II, controlled On: :15 Request VITAMIN B-12 (CYANOCOBALAMIN) (47411)Indication: Other vitamin B12 deficiency anemia On: 1-Ztl-046780:13 Request TSH (03820)Indication: ATRIAL FIBRILLATION (Renamed from A-fib) On: 44-Arg-866667:16 Request URINALYSIS, W/ MICRO (10119)Indication: Diabetes mellitus type II, controlled On: 57-Vje-133169:16 Request MICROALBUMIN: CREATININE RATIO (19846) AND (76982)Indication: Diabetes mellitus type II, controlled On: 88-Knl-987854:16 Request METABOLIC PANEL, COMPREHENSIVE (70323)Indication: Diabetes mellitus type II, controlled On: 05-Zpz-546820:16 Request LIPOPROTEIN, BLD, BY NMR (62875)Indication: Diabetes mellitus type II, controlled On: 20-Bcw-627114:16 Request LIPID PANEL (06952)Indication: Diabetes mellitus type II, controlled On: 33-Suf-007884:16 Request CBC W/AUTO DIFF WBC (79733)Indication: Diabetes mellitus type II, controlled On: 76-Xzg-396487:15 Request VITAMIN B-12 (CYANOCOBALAMIN) (71817)Indication: Other vitamin B12 deficiency anemia On: 7-Pxg-182760:50 Request TSH (14791)Indication: ATRIAL FIBRILLATION (Renamed from A-fib) On: 4-Fuu-673755:50 Request URINALYSIS, W/ MICRO (48098)Indication: Hypertensive heart disease without heart failure On: 6-Npa-708160:49 Request MICROALBUMIN: CREATININE RATIO (13446) AND (79627)Indication: Hypertensive heart disease without heart failure On: 2-Afi-208549:49 Request METABOLIC PANEL, COMPREHENSIVE (86267)Indication: Hypertensive heart disease without heart failure On: 0-Oiq-344487:49 Request CBC W/AUTO DIFF WBC (89306)Indication: Hypertensive heart disease without heart failure On: 4-Vbw-057843:49 Request CALCIFEDIOL (93707)Indication: Vitamin D deficiency, unspecified On: 7-Myv-536916:49 Request LIPID PANEL (79853)Indication: Mixed dyslipidemia On: 7-Omy-011598:49 Request URINALYSIS, W/ MICRO (04656)Indication: Type 2 diabetes mellitus, uncontrolled On: 62-Vdr-846533:23 Request MICROALBUMIN: CREATININE RATIO (44669) AND (65388)Indication: Type 2 diabetes mellitus, uncontrolled On: 17-Qyl-817920:23 Request HEMOGLOBIN GLYCLATED (HGB A1C) (13912)Indication: Type 2 diabetes mellitus, uncontrolled On: 36-Pjt-147879:03 Request HgA1C , Office (26665)Indication: Type 2 diabetes mellitus, uncontrolled On: 30-Fwr-214187:46 Request Vitamin D Hydroxy (93059)Indication: Vitamin D deficiency, unspecified On: 88-Avt-686048:16 Request VITAMIN B-12 (CYANOCOBALAMIN) (03413)Indication: Other vitamin B12 deficiency anemia On: 26-Erh-101911:16 Request CBC with auto diff (42546)Indication: Iron deficiency anemia, unspecified On: 90-Apr-433122:15 Request LIPID PANEL (24998)Indication: Mixed dyslipidemia On: 68-Cef-422509:15 Request METABOLIC PANEL, COMPREHENSIVE (56963)Indication: Type 2 diabetes mellitus, uncontrolled On: 47-Knv-576475:15 Request CBC W/AUTO DIFF WBC (03146)Indication: Iron deficiency anemia, unspecified On: 31-Jjs-416565:44 Request URINALYSIS, W/ MICRO (65589)Indication: Heart disease, hypertensive, malignant, without heart failure On: 42-Fbj-212115:44 Request METABOLIC PANEL, COMPREHENSIVE (54835)Indication: Heart disease, hypertensive, malignant, without heart failure On: 97-Zcr-618777:44 Request MICROALBUMIN: CREATININE RATIO (70202) AND (16002)Indication: Heart disease, hypertensive, malignant, without heart failure On: 35-Clg-221464:44 Request IRON (44774)Indication: Iron deficiency anemia, unspecified On: 62-Agf-160802:44 Request CBC, Platelets & Auto Diff (27591)Indication: SOB On: 4-Zwl-919456:09 Request Renal function Panel (41397)Indication: SOB On: 7-Nrc-300519:09 Request Vitamin D Hydroxy (03461)Indication: Vitamin D deficiency, unspecified On: 86-Lgy-941074:04 Request VITAMIN B-12 (CYANOCOBALAMIN) (74998)Indication: Other vitamin B12 deficiency anemia On: 04-Srk-807974:04 Request METABOLIC PANEL, COMPREHENSIVE (06540)Indication: Type 2 diabetes mellitus, uncontrolled On: 31-Cso-646065:04 Request IRON (64497)Indication: Iron deficiency anemia, unspecified On: 32-Hyt-870001:59 Request IRON (27033)Indication: Iron deficiency anemia, unspecified On: 89-Bhc-426716:18 Request CBC WITH MANUAL DIFF (48793)Indication: Iron deficiency anemia, unspecified On: 82-Qdo-274763:43 Request METABOLIC PANEL, COMPREHENSIVE (99900)Indication: Hypertensive heart disease without heart failure On: 83-Vfs-422905:43 Request CBC with manual diff (26670)Indication: Anemia On: :53 Request Comments: recheck in 3 months Ferritin (70465)Indication: Anemia On: :53 Request Iron Binding Capacity (TIBC) (66380)Indication: Anemia On: :53 Request Iron (97267)Indication: Anemia On: :53 Request LIPID PANEL (97560)Indication: Mixed dyslipidemia On: :43 Request IRON (32489)Indication: Iron deficiency anemia, unspecified On: 57-Egl-582079:35 Request Vitamin D Hydroxy (07577)Indication: Vitamin D deficiency, unspecified On: 9-Irs-486103:14 Request METABOLIC PANEL, COMPREHENSIVE (23776)Indication: Type 2 diabetes mellitus, uncontrolled On: 1-Bbg-137192:13 Request IRON BINDING CAPACITY (TIBC) (58644)Indication: Iron deficiency anemia, unspecified On: 3-Epb-855702:10 Request FERRITIN (27903)Indication: Iron deficiency anemia, unspecified On: 6-Dsp-419597:10 Request IRON (10216)Indication: Iron deficiency anemia, unspecified On: 4-Xqp-688072:10 Request MICROALBUMIN: CREATININE RATIO (36222) AND (21258)Indication: Type 2 diabetes mellitus, uncontrolled On: 8-Cij-746889:58 Request METABOLIC PANEL, COMPREHENSIVE (27616)Indication: Type 2 diabetes mellitus, uncontrolled On: 2-Kvw-381162:58 Request CBC WITH MANUAL DIFF (23020)Indication: Type 2 diabetes mellitus, uncontrolled On: 9-Mzb-184502:58 Request Vitamin D Hydroxy (35801)Indication: Vitamin D deficiency, unspecified On: 1-Nis-459245:58 Request VITAMIN B-12 (CYANOCOBALAMIN) (38930)Indication: Other vitamin B12 deficiency anemia On: 6-Eyo-648943:58 Request LIPID PANEL (76392)Indication: Mixed dyslipidemia On: 65-Yhl-234492:01 Request METABOLIC PANEL, COMPREHENSIVE (88342)Indication: Hypertension On: : Request CBC WITH MANUAL DIFF (64861)Indication: Other vitamin B12 deficiency anemia On: : Request VITAMIN D, 1, 25-DIHYDROXY (60982)Indication: Vitamin D deficiency, unspecified On: : Request Vitamin D Hydroxy (70503)Indication: Vitamin D deficiency, unspecified On: : Request LIPID PANEL (58861)Indication: Mixed dyslipidemia On: : Request METABOLIC PANEL, COMPREHENSIVE (75659)Indication: Diabetes mellitus type II, controlled On: : Request CBC WITH MANUAL DIFF (32821)Indication: Other vitamin B12 deficiency anemia On: : Request MICROALBUMIN: CREATININE RATIO (66001) AND (28714)Indication: Diabetes mellitus type II, controlled On: : Request VITAMIN B-12 (CYANOCOBALAMIN) (86664)Indication: Other vitamin B12 deficiency anemia On: : Request HEMOGLOBIN GLYCLATED (HGB A1C) (05512)Indication: Diabetes mellitus type II, controlled On: :27 Request LIPID PANEL (61331)Indication: Mixed dyslipidemia On: :16 Request METABOLIC PANEL, COMPREHENSIVE (18184)Indication: Type 2 diabetes mellitus, uncontrolled On: :15 Request CBC WITH MANUAL DIFF (48637)Indication: Type 2 diabetes mellitus, uncontrolled On: :15 Request MICROALBUMIN: CREATININE RATIO (30344) AND (20683)Indication: Type 2 diabetes mellitus, uncontrolled On: :15 Request VITAMIN B-12 (CYANOCOBALAMIN) (19473)Indication: Other vitamin B12 deficiency anemia On: :15 Request Vitamin D Hydroxy (17263)Indication: Vitamin D deficiency, unspecified On: :15 Request HgA1C , Office (01802)Indication: Type 2 diabetes mellitus, uncontrolled On: 19-Qjv-301186:38 Request VITAMIN B-12 (CYANOCOBALAMIN) (23541)Indication: Other vitamin B12 deficiency anemia On: :55 Request LIPID PANEL (72117)Indication: Mixed dyslipidemia On: :55 Request METABOLIC PANEL, COMPREHENSIVE (43068)Indication: Heart disease, hypertensive, malignant, without heart failure On: :53 Request CBC WITH MANUAL DIFF (49828)Indication: Diverticulitis On: :53 Request LEUKOCYTE COUNT, FECAL (82301)Indication: Diarrhea On: :47 Request C.Difficile, Stool (83105)Indication: Diarrhea On: :47 Request BRO CULTURE-STOOL (41160)Indication: Diarrhea On: :47 Request Metabolic Panel, Comprehensive (31207)Indication: Abdominal pain, unspecified abdominal location On: :46 Request HEPATIC FUNCTION PANEL (81313)Indication: Abdominal pain, unspecified abdominal location On: :46 Request Bilirubin, Direct (07318)Indication: Abdominal pain, unspecified abdominal location On: :44 Request Bilirubin, total (30234)Indication: Abdominal pain, unspecified abdominal location On: :44 Request CBC WITH MANUAL DIFF (48760)Indication: Other vitamin B12 deficiency anemia On: :15 Request VITAMIN B-12 (CYANOCOBALAMIN) (58221)Indication: Other vitamin B12 deficiency anemia On: 19-Brf-488602:15 Request LIPID PANEL (75209)Indication: Mixed dyslipidemia On: :14 Request METABOLIC PANEL, COMPREHENSIVE (77651)Indication: Heart disease, hypertensive, malignant, without heart failure On: 28-Ogz-421846:14 Request Vitamin D Hydroxy (25576)Indication: Vitamin D deficiency, unspecified On: :06 Request CBC, PLATELETS & AUT DIFF (07603)Indication: Other vitamin B12 deficiency anemia On: :45 Request VITAMIN B-12 (CYANOCOBALAMIN) (76575)Indication: Other vitamin B12 deficiency anemia On: :45 Request HEPATIC FUNCTION PANEL (75608)Indication: Mixed dyslipidemia On: :44 Request LIPID PANEL (09037)Indication: Mixed dyslipidemia On: :44 Request Vitamin D Hydroxy (95298)Indication: vit d deficiency On: :33 Request Vitamin D Hydroxy (78609) On: : Request VITAMIN B-12 (CYANOCOBALAMIN) (38592)Indication: Other vitamin B12 deficiency anemia On: : Request CBC WITH MANUAL DIFF (01640)Indication: Heart disease, hypertensive, malignant, without heart failure On: : Request METABOLIC PANEL, COMPREHENSIVE (52503)Indication: Heart disease, hypertensive, malignant, without heart failure On: : Request LIPOPROTEIN, BLD, BY NMR (93619)Indication: Mixed dyslipidemia On: Request HEPATIC FUNCTION PANEL (71716)Indication: Mixed dyslipidemia On: : Request LIPID PANEL (84511)Indication: Mixed dyslipidemia On: : Request FOLIC ACID SERUM (29799)Indication: Anemia On: : Request FERRITIN (15593)Indication: Anemia On: : Request IRON (61389)Indication: Anemia On: Request IRON BINDING CAPACITY (TIBC) (78613)Indication: Anemia On: Request RETICULOCYTE COUNT MANUL (07368)Indication: Anemia On: : Request LDH (LD) (LACTATE DEHYDROGENASE) (41980)Indication: Anemia On: Request VITAMIN B-12 (CYANOCOBALAMIN) (63968)Indication: Anemia On: : Request CBC WITH MANUAL DIFF (61015)Indication: Anemia On: : Request HEPATIC FUNCTION PANEL (57722)Indication: Mixed dyslipidemia On: Request LIPID PANEL (67749)Indication: Mixed dyslipidemia On: Request MICROALBUMIN URINE QUANT (37762)Indication: Hypertension On: :42 Request TSH (28500)Indication: Hypertension On: :42 Request METABOLIC PANEL, COMPREHENSIVE (21702)Indication: Diabetes mellitus type II, controlled On: 72-Nza-969811:42 Request HEPATIC FUNCTION PANEL (53940)Indication: Mixed dyslipidemia On: 16-Baw-201268:42 Request LIPID PANEL (30190)Indication: Mixed dyslipidemia On: 69-Bgk-810214:42 Request CBC WITH MANUAL DIFF (76516)Indication: Anemia On: :36 Request HEPATIC FUNCTION PANEL (03408)Indication: Mixed dyslipidemia On: :36 Request LIPID PANEL (73997)Indication: Mixed dyslipidemia On: :36 Request HgA1C , Office (71656)Indication: Diabetes mellitus type II, controlled On: :17 Request URINALYSIS W/O MICRO (65788)Indication: Hypertension On: :47 Request TSH (71229)Indication: Hypertension On: 72-Uit-901209:47 Request METABOLIC PANEL, COMPREHENSIVE (02473)Indication: Hypertension On: 50-Nrs-705767:47 Request CBC WITH MANUAL DIFF (08060)Indication: Hypertension On: 15-Xbd-684683:47 Request Thin prep Pap (36872)Indication: well female - pap pelvic and bimanual performed On: 0-Hqs-093782:02 Request Planned Encounters Medical; 3 Month FU - On: 23-Mar-2018 10:00 [facility] Nia Uriostegui DO, DO, Kathleen Planned Procedures Flu Vaccine (Quadrivalent) On: 15-Dec-2017 Intent 30594Cc: Nia Uriostegui DO Comments: Lot #[id number]-L dltd, IMDose prefilled syringegiven by: Susie Lopez LPN.VIS reviewed and ABN signed Nia Uriostegui DO B 12 Injection, 1000 mcg On: 15-Dec-2017 Intent (J3420)By: Nia Uriostegui DO Comments: 1 ml given rt dltd lot [id number] exp 05/30 Nia Uriostegui DO ELECTROCARDIOGRAM, COMPLETE On: 15-Dec-2017 Intent (ECG) (52424)By: Moody MCFARLAND, Comments: nsr !! 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 DRIVER MoodyNia prakash DO B 12 Injection, 1000 mcg On: 12-Feb-2017 Intent (J3420)By: Nia Uriostegui DO Comments: 1 ml given lt arm lot [id number] exp 06/28 MoodySelam prakash DOhleen B 12 Injection, 1000 mcg On: 29-Nov-2016 Intent (J3420)By: Nia Uriostegui DO Comments: b12 1000mcglot: [id number]: 03/2018L DELT IMpt tolerated 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 DRIVER Nia Uriostegui DO Flu Vaccine (Quadrivalent) On: 07-Nov-2016 Intent 13472Vp: Nia Uriostegui DO Comments: Lot:[id number]:07/28/17Amt:0.5mlRoute:IMSite: L DltdGiven By: RAHUL Bar signed Nia Uriostegui DO B 12 Injection, 1000 mcg On: 04-Nov-2016 Intent (J3420)By: Nia Uriostegui DO Comments: lot [id number] exp 214911 mcgleft dltdIMas Nia Uriostegui DO B 12 Injection, 1000 mcg On: 08-Aug-2016 Intent (J3420)By: Nia Uriostegui DO Comments: Lot:[id number]:07/28Dose:1mlRoute:IMSite:l armGiven By:SASKIA signed Nia Uriostegui DO B 12 Injection, 1000 mcg On: 24-Apr-2016 Intent (J3420)By: Nia Uriostegui DO Comments: Lot:[id number]:05/28Dose:1mlRoute:IMSite:Given By:SASKIA signed Nia Uriostegui DO ELECTROCARDIOGRAM, COMPLETE On: 24-Apr-2016 Intent (ECG) (98350)By: Moody MCFARLAND, Comments: sinus ana no acute chg Nia Uriostegui Nia MCFARLAND Aerosol Treatment (61074)By: On: 27-Feb-2016 Intent Balbir Cramer MD Solu- Medrol Injection, 125mg On: 27-Feb-2016 Intent (J2930)By: Balbir Cramer MD Comments: lot [id number] 07/20183761880 mgleft gmIMas, WAREHOUSE ASSOCIATE DRIVER Pulse Oximetry (91221)By: Bela On: 16-Jan-2016 Intent Balbir ROSAS Aerosol Treatment (47592)By: On: 16-Jan-2016 Intent Balbir Cramer MD Solu- Medrol Injection, 125mg On: 16-Jan-2016 Intent (J2930)By: Balbir Cramer MD Comments: Lot:[id number]:06/28Dose:125mgRoute:imSite:r hipGiven By:SASKIA signed CHEST XRAY, PA & LATERAL On: 16-Jan-2016 Intent (14643)By: Balbir Cramer MD Comments: ?PNA CAROTID ULTRASOUND (72494)By: On: 16-Jan-2016 Intent Balbir Cramer MD DEXA SCAN AXIAL SKELETON On: 16-Jan-2016 Intent (33655)By: Balbir Cramer MD MAMMOGRAM, SCREENING, BOTH On: 16-Jan-2016 Intent BREAST (05367)By: Balbir Cramer MD B 12 Injection, 1000 mcg On: 16-Jan-2016 Intent (J3420)By: Balbir Cramer MD Comments: lot: [id number]: ite/route: L del/IMamt: 1mLVIS signed when applicableMONSTER Molina B 12 Injection, 1000 mcg On: 11-Oct-2015 Intent (J3420)By: Balbir Cramer MD Flu Vaccine (Quadrivalent) On: 11-Oct-2015 Intent 87892Zf: Balbir Cramer MD Comments: Lot #[id number]/30/17ite-L dltd, IMDose prefilled syringegiven by:MAYCO OSWALD and ABN signed B 12 Injection, 1000 mcg On: 22-May-2015 Intent (J3420)By: Maylin Melendez DO B 12 Injection, 1000 mcg On: 17-Mar-2015 Intent (J3420)By: Maylin Melendez DO Comments: lot: [id number]: 10/27site/route: L del/IMamt: 1mLVIS signed when applicableChebridgette STONE DECORATOR PNEUM VAC ADLT/IMUMNOSPR, On: 30-Dec-2014 Intent SBC/INTRM (93427)By: Al MCFARLAND, Comments: PNUEMOlot:[id number]:1*13*17site:Rt deltoidroute:IMdose:.5mlDEMICK, SMA Maylin A B 12 Injection, 1000 mcg On: 30-Dec-2014 Intent (J3420)By: Maylin Melendez DO Comments: B12lot:[id number]:05/27site: LT deltoidROute: IMdose:1ml ADMINISTRATION OF INFLUENZA On: 21-Oct-2014 Intent VIRUS VACCINE (G0008)By: Maylin Melendez DO FLU VAC, SPLIT, >3 YEARS, On: 21-Oct-2014 Intent INTRAMUSC (77204)By: Al MCFARLAND, Comments: lot: [id number]: 08/09/ite/route: L del/IMamt: 1mLVIS signed when applicableChelsMONSTER armenta Maylin A MAMMOGRAM, SCREENING, BOTH On: 05-Oct-2014 Intent BREAST (30701)By: Maylin Melendez DO Cartoid DopplerBy: Al MCFARLAND, On: 05-Oct-2014 Intent Maylin A B 12 Injection, 1000 mcg On: 05-Oct-2014 Intent (J3420)By: Maylin Melendez DO Comments: Lot:[id number]:02Route:IMSite:R deltoidDose: 1 mLgiven by: Adalgisa Sexton CMA B 12 Injection, 1000 mcg On: 01-Sep-2014 Intent (J3420)By: Adalgisa Sexton Comments: Lot:[id number]:12.26Route:IMSite:R deltoidDose: 1 mLgiven by: Adalgisa Sexton CMA B 12 Injection, 1000 mcg On: 26-May-2014 Intent (J3420)By: Adalgisa Sexton Comments: lot:[id number]:04/25route:IMdose:1MLSite:R deltoidgiven by: ANS B 12 Injection, 1000 mcg On: 11-Apr-2014 Intent (J3420)By: Kaci Gomez LPN Comments: lot: [id number]: 11/25Dose: 1,000 mcgSite: l dltdLocation; IMby: Solu -Medrol Injection, 125 mg On: 22-Feb-2014 Intent (J2930)By: Maylin Melendez DO Comments: [id number] 6.07146 mgleft KASIA Love Solu -Medrol Injection, 125 mg On: 31-Jan-2014 Intent (J2930)By: Sherrie Amor CNP Comments: lot [id number] 06/2016location R hiproute imgiven by - msmith VIS and/or ABN signed B 12 Injection, 1000 mcg On: 21-Jan-2014 Intent (J3420)By: Maylin Melendez DO Comments: lot [id number] 05/2015location L armroute imgiven by - msmith VIS and/or ABN signed Aerosol Treatment (24100)By: On: 14-Jan-2014 Intent Sherrie Amor CNP Radiology - ChestBy: Mt On: 14-Jan-2014 Intent Sherrie OJEDA Comments: stat call results to Dr Uriostegui is adoption manager EKG (45882)By: Mt OJEDA, On: 14-Jan-2014 Intent Sherrie Beck Comments: looks same as before No new ST -t wave changes ADMINISTRATION OF INFLUENZA On: 29-Nov-2013 Intent VIRUS VACCINE (G0008)By: Al Comments: Lot #[id number]-L dltd, IMDose prefilled syringegiven by:LORIN laurent and ABN signed Maylin MCFARLAND FLU VAC, SPLIT, >3 YEARS, On: 29-Nov-2013 Intent INTRAMUSC (30972)By: Maylin Melendez DO B 12 Injection, 1000 mcg On: 29-Nov-2013 Intent (J3420)By: Maylin Melendez DO Comments: magen, R dltd, Im - see flowsheet for lot and exp Radiology - Knee - Left - On: 06-Sep-2013 Intent Weight BearingBy: Maylin Melendez DO MAMMOGRAM, SCREENING, BOTH On: 18-Aug-2013 Intent BREAST (98683)By: Fast DO, Maylin A B 12 Injection, 1000 mcg On: 18-Aug-2013 Intent (J3420)By: Layton Melendez DOa A Aerosol Treatment (73048)By: On: 16-Jul-2013 Intent Mt OJEDA Sherrie Beck Aerosol Treatment (36245)By: On: 09-Jul-2013 Intent Mt OJEDA Sherrie Beck [...] On: 27-Apr-2013 Intent (J3420)By: Visit, Nurse Comments: Lot:[id number]:12/25Dose:1mlRoute:IMSite:l armGiven By:SASKIA signed Aerosol Treatment (63360)By: On: 17-Feb-2013 Intent Nia Uriostegui DO, DO, Comments: more q/e less cough -- ok to use rescue inhaler prn not moer than bid with a fib -- if needs ansd worsen go to ER-- pulse reguar after treatment Nia Spirometry (98331)By: Moody On: 17-Feb-2013 Intent Nia MCFARLAND DO, Comments: mild restriction -- stable Nia Solu- Medrol Injection, 125mg On: 17-Feb-2013 Intent (J2930)By: Nia Uriostegui DO Comments: lot: [id number]: 516site/route: RGM/IMamt: 2mLVIS signed when applicableMONSTER Molina DO, Kathleen Eprescribed prescriptions On: 17-Feb-2013 Intent (G8553)By: Nia Uriostegui DO, DO Nia EKG ([id number])By: Maylin Melendez DO On: 12-Jan-2013 Intent A Comments: ekg showed normal sinus rhythym, left axis, no acute st/t wave changes Pelvic and Breast, Medicare On: 12-Jan-2013 Intent (G0101)By: Natalya Kohli Eprescribed prescriptions On: 18-Dec-2012 Intent (G8553)By: Maylin Melendez DO FLU VAC, SPLIT, >3 YEARS, On: 18-Dec-2012 Intent INTRAMUSC ([id number])By: Seun, Comments: Lot #:[id number] date:mount given:0.5mlRoute: IMSite given: L dltdVIS and ABN signedGiven by: CHILO Gillespie ADMINISTRATION OF INFLUENZA On: 18-Dec-2012 Intent VIRUS VACCINE (G0008)By: Natalya Kohli B 12 Injection, 1000 mcg On: 01-Dec-2012 Intent (J3420)By: Tracy Barnes Comments: Lot:[id number]:09/24Dose:1mlRoute:IMSite:l armGiven By:SASKIA signed Eprescribed prescriptions On: 02-Nov-2012 Intent (G8553)By: Sherrie Amor CNP Radiology - Foot - RightBy: On: 02-Nov-2012 Intent Sherrie Amor CNP B 12 Injection, 1000 mcg On: 19-Oct-2012 Intent (J3420)By: Tracy Barnes Comments: lot: [id number]: 09/23site/route: L deltoid/IMamt: 1mLVIS signed when applicableMONSTER Molina B 12 Injection, 1000 mcg On: 31-Aug-2012 Intent (J3420)By: Maylin Melendez DO Comments: Lot: [id number]: [id number]: 1000mcg/1mlRoute: IMSite: L deltoidGiven by: KASIA Samson Eprescribed prescriptions On: 31-Aug-2012 Intent (G8553)By: Natalya Kohli Nuclear Medicine - Other - On: 18-Aug-2012 Intent Vertebral AssessmentBy: Al Comments: Maylin Vogel DO DXA, BONE DENSITY, AXIAL On: 22-Jun-2012 Intent SKELETON ([id number])By: Maylin Melendez DO MAMMOGRAM, SCREENING, BOTH On: 22-Jun-2012 Intent BREASTS (81010)By: Maylin Melendez DO B 12 Injection, 1000 mcg On: 15-Jun-2012 Intent (J3420)By: Tracy Barnes Comments: lot: [id number]: 12/24site/route: R deltoid/IMamt: 1,000mcgVIS signed when applicableChelsea, STONE DECORATOR Eprescribed prescriptions On: 17-Apr-2012 Intent (G8553)By: Natalya Kohli 12 Injection, 1000 mcg On: 13-Apr-2012 Intent (J3420)By: Ramona Vásquez Comments: Lot:[id number]:01/23Dose:1mlRoute:IMSite:r armGiven By:SASKIA signed Eprescribed prescriptions On: 27-Mar-2012 Intent (G8553)By: Susie Lopez LPN FLU VAC, SPLIT, >3 YEARS, On: 17-Jan-2012 Intent INTRAMUSC ([id number])By: Al MCFARLAND, Comments: Lot #[id number]-left deltoidgiven by: KASIA Fajardo ADMINISTRATION OF INFLUENZA On: 17-Jan-2012 Intent VIRUS VACCINE (G0008)By: Maylin Melendez DO Eprescribed prescriptions On: 17-Jan-2012 Intent (G8553)By: Natalya Kohli 12 Injection, 1000 mcg On: 31-Dec-2011 Intent (J3420)By: Maylin Melendez DO Comments: Lot:[id number]:Dose:1mlRoute:IMSite:L armGiven By:JACQUIE Aerosol Treatment ([id number])By: On: 24-Dec-2011 Intent Sherrie Amor CNP B [...] week and copy to dr betsy AREVALO ([id number])By: Al DO Maylin On: 17-Sep-2011 Intent A Comments: ekg- sinus with muptiple pvcs - left axis B 12 Injection, 1000 mcg On: 17-Sep-2011 Intent (J3420)By: Natalya Kohli Comments: Lot #:[id number] date:mount given:1mlRoute: [...] MAMMOGRAM, SCREENING, BOTH On: 14-May-2011 Intent BREASTS (36797)By: Maylin Melendez DO CT - ChestBy: Al [...] Intent (J2930)By: Sherrie Amor CNP Comments: Lot #[id number]-R hip, IMDose 125mg, 2 mlgiven by: Aerosol Treatment ([id number])By: On: 24-Aug-2010 Intent Sherrie Amor CNP Pulse Oximetry ([id number])By: Keesha On: 24-Aug-2010 Intent Ericka TELLEZ Spirometry ([id number])By: Al On: 03-Aug-2010 Intent DO Maylin A Comments: good efffort and curve normal EKG (46333)By: Layton Melendez DOa On: 03-Aug-2010 Intent A Comments: ekg showed normal sinus rhythym, normal axis, no acute st/t wave changes poor r wave progression Radiology - Chest- PA and On: 03-Aug-2010 Intent LatBy: Layton Melendez DOa A B 12 Injection, 1000 mcg On: 11-Jul-2010 Intent (J3420)By: Carol Stark LPN Comments: Lot #[id number]-01/20Site-left deltoidDose- 1 mlgiven by: Emili Stark LPN TD Injection , IM ([id number])By: On: 20-Apr-2010 Intent Maylin Melendez DO Comments: Lot #[id number]/12Site-L dtd, IMDose prefilledgiven by: B 12 Injection, 1000 mcg On: 04-Apr-2010 Intent (J3420)By: Carol Stark LPN Comments: Lot #[id number]-12/22Site-left deltoidDose- 1 mlgiven by:[facility] B 12 Injection, 1000 mcg On: 16-Jan-2010 Intent (J3420)By: Carol Reina LPN Comments: Lot #[id number]/11Site-R csfSaug6xqzwoai by: B 12 Injection, 1000 mcg On: 12-Dec-2009 Intent (J3420)By: Carol Stark LPN Comments: Lot #[id number]-06/21Site-left deltoidDose- 1 mlgiven by:MAYRA FLU VAC, SPLIT, >3 YEARS, On: 14-Nov-2009 Intent INTRAMUSC (67432)By: Natalya Kohli ADMINISTRATION OF INFLUENZA On: 14-Nov-2009 Intent VIRUS VACCINE (G0008)By: Comments: Lot #: [id number] date:mount given: 0.5 mlRoute: IMSite given: left deltoid Given by: Lane Romeo, RN Natalya Kohil DXA, BONE DENSITY, AXIAL On: 01-Nov-2009 Intent SKELETON ([id number])By: Maylin Melendez DO MAMMOGRAM, SCREENING, BOTH On: 01-Nov-2009 Intent BREASTS ([id number])By: Maylin Melendez DO ADMINISTRATION OF PNEUMOCOCCAL On: 01-Nov-2009 Intent VACCINE (G0009)By: Maylin Melendez DO PNEUM VAC ADLT/IMUMNOSPR, On: 01-Nov-2009 Intent SBC/INTRM ([id number])By: Maylin Melendez DO B 12 Injection, 1000 mcg On: 01-Nov-2009 Intent (J3420)By: Carol Reina LPN Comments: Lot #[id number]/21Site-L dltdDose 30m/mlgiven by:KASIA GONZALES Pneumovax (24027)By: Nuno On: 01-Nov-2009 Intent Carol PEDROZA Comments: Lot #[id number] 2010Site-R dltdDose 0.5mlgiven by:KASIA ANDERS B 12 Injection, 1000 mcg On: 25-Aug-2009 Intent (J3420)By: Carol Stark LPN Comments: Lot #[id number]-/Site-left deltoidDose- 1 mlgiven by:MAYRA B 12 Injection, 1000 mcg On: 13-Jul-2009 Intent (J3420)By: Monik Rushing Comments: Lot #[id number]-01/2011Site-left dxgzvleEnoq4569kua/1mlgiven by Diana Rushing LPN CT - ChestBy: Fast DO, Maylin A On: 05-Jun-2009 Intent Spirometry (06826)By: On: 05-Jun-2009 Intent Natalya Kohli Comments: goo deffort and curve mild small airway obst B 12 Injection, 1000 mcg On: 24-May-2009 Intent (J3420)By: Carol Stark LPN Comments: Lot #[id number]/Site-right deltoidDose- 1 mlgiven by:[facility] Radiology - Knee - Right - On: 23-Dec-2008 Intent Weight BearingBy: Fast DO, Maylin A B 12 Injection, 1000 mcg On: 23-Dec-2008 Intent (J3420)By: Natalya Kohli Comments: Lot #:[id number] date:mount given:1mlRoute: IMSite given:left deltoidGiven by: CHILO Gillespie Aerosol Treatment (72051)By: On: 08-Nov-2008 Intent Natalya Carter Comments: post treatment breath sounds clear bilat. pt. states feels breathing better. Pulse Oximetry (75123)By: On: 08-Nov-2008 Intent Natalya Carter Comments: 95% [...] (J3420)By: Maylin Melendez DO Comments: Lot #[id number]-12/2009Site-left havbstzHnhh9444vhj/1mlgiven by Diana Rushing LPN CT - Brain/HeadBy: Al MCFARLAND, On: 31-May-2008 Intent Maylin A EKG (80576)By: Maylin Melendez DO On: 10-May-2008 Intent A Comments: ekg showed normal sinus rhythym, leftaxis, nonspecific t changges unchanged fromprevious Echo CompleteBy: Al MCFARLAND, On: 10-May-2008 Intent Maylin A PFT - CompleteBy: Al MCFARLAND, On: 10-May-2008 Intent Maylin A Pulse Oximetry (48555)By: Al On: 10-May-2008 Intent Maylin MCFARLAND Comments: 95 Spirometry (83927)By: Al On: 10-May-2008 Intent DO Maylin A Comments: good effort and curve mild restriction CT - ChestBy: Maylin Melendez DO A On: 10-May-2008 Intent Bio Z ([id number])By: Al MCFARLAND, On: 10-May-2008 Intent Maylin A [...] Intent (J3420)By: Monik Rushing Comments: Lot #[id number]-5/10Site-left tumxbdqDbgs9nyscxqq by Diana Rushing LPN INJECTION, VITAMIN B-12 On: 03-Dec-2007 Intent CYANOCOBALAMIN, UP TO 1000 Comments: injection given in left deltoid, Ptolerated welllo # [id number] 5/10 MCG (Special Coverage Instructions Apply. See CIM: 45-4 and MCM: 2048) (J3420)By: Irais Monreal B 12 Injection, 1000 mcg On: 26-Nov-2007 Intent (J3420)By: Monik Rushing Comments: Lot #[id number]-5/10Site-left ynnwtioDwdx6awjtkpb by Diana Rushing LPN INJECTION, VITAMIN B-12 [...] MCFARLAND, On: 30-Oct-2007 Intent Maylin A Spirometry ([id number])By: Al On: 30-Oct-2007 Intent DO Maylin A Comments: good effort and curve- some small airway decrease Radiology - Chest- PA and On: 30-Oct-2007 Intent LatBy: Al MCFARLAND Maylin A DXA, BONE DENSITY, AXIAL On: 24-Jul-2007 Intent SKELETON (17173)By: Al MCFARLAND, Comments: postmenopausal without estrogen Maylin Sherman MAMMOGRAM, SCREENING, BOTH On: 24-Jul-2007 Intent BREASTS ([id number])By: Maylin Melendez DO Radiology - Knee - Right - On: 15-Jun-2007 Intent Weight BearingBy: Al MCFARLAND, Comments: call results Maylin Sherman CT - ChestBy: Maylin Melendez DO On: 03-Apr-[address] - ChestBy: Maylin Melendez DO On: 15-Aug-2006 Intent Spirometry ([id number])By: Al On: 15-Aug-2006 Intent Maylin MCFARLAND Comments: good effort and curve- mild obstruction EKG (75579)By: Seun, On: 15-Aug-2006 Intent Natalya Comments: ekg showed normal sinus rhythym, normal axis, no acute st/t wave changes Radiology - ChestBy: LEE On: 25-Jun-2006 Intent PAMELA OJEDA Comments: PA and LAT Solu- Medrol Injection, 125mg On: 25-Jun-2006 Intent (J2930)By: PAMELA HOWARD CNP Pulse Oximetry ([id number])By: On: 25-Jun-2006 Intent PAMELA HOWARD CNP Comments: pt tolerated well. ins waiver signed Aerosol Treatment (82185)By: On: 25-Jun-2006 Intent PAMELA HOWARD CNP Comments: ins wwaiver signed, pt tolerated well Spirometry (84328)By: Al On: 14-May-2006 Maylin Amaya DO Comments: good effort and curve-mild obstruction ADMINISTRATION OF PNEUMOCOCCAL On: 11-Feb-2006 Intent VACCINE (G0009)By: ULYSSES Quiñones PNEUM VAC ADLT/IMUMNOSPR, On: 11-Feb-2006 Intent SBC/INTRM ([id number])By: ULYSSES Quiñones Bio Z (13525)By: Al MCFARLAND, On: 11-Feb-2006 Intent Maylin Sherman Comments: bp was 132/65- cardiac output, svr and thoracic fluid content is normal- will hold on med changes PNEUM VAC ADLT/IMUMNOSPR, On: 11-Feb-2006 Intent SBC/INTRM (84296)By: Maylin Melendez DO ADMINISTRATION OF PNEUMOCOCCAL On: 11-Feb-2006 Intent VACCINE (G0009)By: Fast DO, Maylin A MAMMOGRAM, SCREENING, BOTH On: 16-Oct-2005 Intent BREASTS ([id number])By: Al DO Maylin A Planned Medications INJECTION, METHYLPREDNISOLONE SODIUM SUCCINATE, UP TO 125 MG Ordered: 17-Feb-2013 Pending Nia Uriostegui DO, DO, Nia INJECTION, METHYLPREDNISOLONE SODIUM SUCCINATE, UP TO 125 MG Ordered: 31-Jan-2014 Pending [place] OJEDA, Carlotta INJECTION, METHYLPREDNISOLONE SODIUM SUCCINATE, UP TO 125 MG Ordered: 24-Aug-2010 Pending [employer] LIBRARY TECHNOLOGY INSTRUCTOR, Carlotta INJECTION, METHYLPREDNISOLONE SODIUM SUCCINATE, UP TO [...] Solution Ordered: 24-Apr-2016 Pending Moody DO, Nia Mooyd DO, Nia Vitamin B-12 1000 MCG/ML Injection [...] MCG/ML Injection Solution Ordered: 16-Jan-2010 Pending Long WAREHOUSE ASSOCIATE DRIVER, Carol L Vitamin B-12 1000 MCG/ML Injection Solution Ordered: 04-Apr-2010 Pending Elyuszti WAREHOUSE ASSOCIATE DRIVER, Carol Vitamin B-12 1000 MCG/ML Injection Solution Ordered: 11-Jul-2010 Pending Hluszti WAREHOUSE ASSOCIATE DRIVER, Carol Vitamin B-12 1000 MCG/ML Injection Solution Ordered: 21-Nov-2010 Pending Long WAREHOUSE ASSOCIATE DRIVER, Carol L Vitamin B-12 1000 MCG/ML Injection Solution Ordered: 14-Jan-2011 Pending Natalya Kohli Vitamin B-12 1000 MCG/ML Injection Solution Ordered: 15-Feb-2011 Pending Long WAREHOUSE ASSOCIATE DRIVER, Carol L Vitamin B-12 1000 MCG/ML Injection Solution Ordered: 18-Mar-2011 Pending Elyuszbetty WAREHOUSE ASSOCIATE DRIVER, Carol Vitamin B-12 1000 MCG/ML Injection Solution Ordered: 16-Apr-2011 Pending Ericka Thao RN Vitamin B-12 1000 MCG/ML Injection Solution Ordered: 23-May-2011 Pending Ericka Thao RN Vitamin B-12 1000 MCG/ML Injection Solution Ordered: 22-Jul-2011 Pending Hluszti WAREHOUSE ASSOCIATE DRIVER, Carol Vitamin B-12 1000 MCG/ML Injection Solution [...] Reason for ER visit: note: (afib in [facility] from sat till wed). The [...] well. Patient has been compliant with instructions. [facility] End: 04-Apr-2015 23:22 t medication use: no [...] SOB. Had a stress test with my karate instructor and everything came back normal.), has decreased [...] weatching diet we talked about kyler catalan sheet metal shop foreman she doesnt want to - we talked about diabetes disease progression- she notices swelling better if moving around more - hasnt been [facility] so think should do [...] had an MRI with doc up in [place] and was told that she had a [...] patient does not have durable power of prosecuting attorney. The patient has noticed nothing from the geriatic depression scale. Other providers contributing to the patient's care are karate instructor, gastrologist nora wilson other: (neurologist). 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 The patient feels well with no complaints [...] be panic or anxiety- she was at karate instructor a few mos ago and he had [...]
--- OUTSIDE RECORDS SUMMARY | 2018-02-18 04:31 | XMS RPT_ITS | Continuity of Care Document ---
:1940 Author Organization [facility] Address [address] [place] [address] Phone Care Team Providers Name Role Phone Nia Uriostegui DO Unavailable Je Rodriguez Unavailable Dr. 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. AMLODIPINE BESYLATE, 5MG (Oral Tablet) 1 Tablet [...] : 17-Apr-2012 End : 17-Apr-2012 Discontinued ERGOCALCIFEROL, 07458HCWE (Oral Capsule) 1 (one) Capsule q week [...] switch to her tradjenta VITAMIN D (ERGOCALCIFEROL), 74149BZGC (Oral Capsule) 1 Capsule twice a week [...] related so will get her back to [facility] Status: Inactive as of 24-Apr-2016 Unspecified [...] Mammogram Completed Comments: 01-12-04 Date Value Details 12-Dec-2017 Arterial Duplex US, Limited Result: Comments: See Note; NOTES: [facility] Cardiovascular Services [address] [place] [address] Art Duplex US Unilat Lower Ext 12/12/17 1304 MR#: [id number] Acct: [id number] Name: COMFORT OLSON Rep #: [id number] : 1940 77 From: Je Ceron MD Attending Dr: Je Ceron MD Status: REG CLI Ordering Dr: Je Ceron MD Date: 12/12/17 Location: [facility] Sex: F C Admitted: Reason For Study: RT Groin pseudoanerysm thrombin injection Right Velocities Rt groin pseudoaneurysm successfully thrombosed s/p thrombin injection. Normal color flow and doppler signal PRELOAD SUPERVISOR and FV. P rocedure Exam performed in department. Interpretation Summary Successful thrombosis right femoral pseudoaneurysm __ Ordering Physician: Je Ceron Performed By: Sanaz Sheth RVT 12/12/17 1404 Date Je Ceron MD CC: Nia Uriostegui DO; Je Ceron MD Date Dictated: 12/12/17 1304 Date Transcribed: 12/12/17 1404 Electrical Drafter: Signed 12-Dec-2017 Operative Report Result: Comments: See Note; NOTES: [facility] Medical Records Department [address] [place] [address] Operative Report 12/12/17 1359 MR#: [id number] Acct: [id number] Name: COMFORT OLSON Rep #: [id number] : 1940 77 From: Je Ceron MD [...] Visit Report Result: Comments: See Note; NOTES: 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 Greene. Patient is about 10 days out. She complained of swelling and pain. She presented to Dr. Richmond's office yesterday. A ultrasound was obtained. This demonstrates a 2 cm pseudoaneurysm in the [facility] groin but there is additional concern [...] Visit Report Result: Comments: See Note; NOTES: [place] [address] [place] [address] OFFICE VISIT Date of Service: 12/11/17 MR#: [id number] Acct: [id number] Patient: COMFORT OLSON Rep #: [id number] : 1940 Provider: Jonel Rashid MD Age/Sex: 77/F Location: [facility] Status: Signed Intake Intake Visit Reasons: [...] PO BID 08/24/17 [History Confirmed 10/31/17] Methscopolamine Brock 5 mg PO BID 08/24/17 [History Confirmed [...] -MATTIE Extrem Result: Comments: See Note; NOTES: [facility] Cardiovascular Services [address] [place] [address] Art Duplex US Bilat Lower Ext 12/11/17 1408 MR#: [id number] Acct: [id number] Name: COMFORT OLSON Rep #: [id number] : 1940 77 From: Je Ceron MD Attending Dr: Annemarie Parsons Status: REG CLI Ordering Dr: Jonel Rashid MD Date: 12/11/17 Location: [facility] Sex: F C Admitted: Reason For Study: Rt groin pain/ecchymosis - Right Velocities Left Velocities RT PRELOAD SUPERVISOR - 1.2 x 1.2 cm with a velocity of 159.0 LT PRELOAD SUPERVISOR - .88 x .83 cm with a [...] Parsons Performed By: Sanaz Sheth RVT 12/11/17 4179 Date Je Ceron MD CC: Jonel Rashid MD; Nia Uriostegui DO; [facility] des Parsons Date Dictated: 12/11/17 1408 Date Transcribed: 12/11/171818 Electrical Drafter: Signed 04-Nov-2017 Operative Report Result: Comments: See Note; NOTES: [facility] Medical Records Department [address] [place] [address] Operative Report 11/03/17 1228 MR#: [id number] Acct: [id number] Name: COMFORT OLSON Rep #: [id number] : 1940 76 From: Patrick Ellsworth MD PCP: Nia Uriostegui DO Status: DEP [facility] Location: [facility] Problem List (1) New onset atrial flutter Status: Acute (2) Atherosclerotic heart disease of [place] coronary artery without angina pectoris Status: Chronic Qualifiers: [place] vs. transplanted heart: [place] heart Qualified Code(s): I25.10 - Atherosclerotic heart disease of [place] nitin nary artery without angina pectoris Comment: 08/06/2004 CABG x2 VILLAGRAN side to side to second Diagonal and end to side to Anterior Descending artery in Sequential fashion. [facility]: 08/01/2004; 10/15/2011 (3) Cardiomyopathy in diseases [...] is a 76-year-old female who presented to [facility] for an elective outpat ient [...] Visit 9xxxx: Other Procedure See Report - [id number] 11/04/17 0525 <Electronically signed by Patrick Ellsworth MD> Date Patrick Ellsworth MD CC: Patrick Ellsworth MD; Jonel Rashid MD; Nia Uriostegui DO Signed 03-Nov-2017 Operative Report Result: Comments: See Note; NOTES: [facility] Medical Records Department [address] [place] [address] Operative Report 11/03/174 MR#: [id number] Acct: [id number] Name: COMFORT OLSON Rep #: [id number] : 1940 76 From: Jonel Rashid MD PCP: Nia Uriostegui DO Status: REG SDC Y Location: [facility] Operative Report [...] Visit Report Result: Comments: See Note; NOTES: [facility] [address] [place] [address] OFFICE VISIT Date of Service: 10/08/17 MR#: [id number] Acct: [id number] Name: COMFORT OLSON Re p #: [id number] : 1940 Provider: Jonel Rashid MD Age/Sex: 76/F Location: [facility] Status: Signed HPI HPI Chief Complaint: [...] 70 Intake Visit Reasons: ER 8-20 per POWER TOOL REPAIRER Allergies No Known Allergies Allergy (Verified 10/08/17 [...] PO BID 08/24/17 [History Confirmed 10/05/17] Methscopolamine Brock 5 mg P O BID 08/24/17 [History [...] atrial fibrillation (Chronic) Atherosclerotic heart disease of [place] coronary artery without angina pectoris (Chronic) HLD [...] fibrillation ablation. Arrangements were made at the [facility] for the above to be considered. [...] bundle branch block. 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) Coding Level of Care Code Off vis,est,level [...] Cosigner Signature: Date (if applicable) CC: Nia Moody 07-Oct-2017 12 Lead Electrocardiogram Result: Comments: See Note; NOTES: [facility] Cardiovascular Services [address] [place] [address] 12 Lead EKG 10/05/17 0149 MR#: [id number] Acct: [id number] Name: COMFORT OLSON Rep # : [id number] : 1940 76 From: Jonel Rashid MD [...] ECG Confirmed by JONEL RASHID MD ([id number]), manuscript editor AMIRA CASTRO ([id number]) on 10/07/2017 2:45:19 PM Referred By: Jonel Rashid Confirmed By:JONEL RASHID MD 10/07/17 1326 Date _ Jonel Rashid MD CC: Emery Allen MD; Nia Uriostegui DO Signed 07-Oct-2017 12 Lead Electrocardiogram Result: Comments: See Note; NOTES: [facility] Cardiovascular Services [address] [place] [address] 12 Lead EKG 10/05/17 0333 MR#: [id number] Acct: [id number] Name: COMFORT OLSON Rep # : [id number] : 1940 76 From: Jonel Rashid MD [...] ECG Confirmed by JONEL RASHID MD ([id number]), manuscript editor AMIRA CASTRO (56) on 10/07/2017 2:42:56 PM Referred By: Kathleen Rashid Confirmed By:JONEL RASHID MD 10/07/17 1442 Date Jonel Rashid MD CC: Emery Allen MD; Nia Uriostegui DO Signed 05-Oct-2017 Discharge Instruction Result: Comments: See Note; NOTES: [facility] Medical Records Department [address] [place] [address] Discharge Instruction 10/05/17 0440 MR#: [id number] Acct: [id number] Name: Liyah OLSON Rep #: [id number] : 1940 76 From: Emery Allen MD [...] Primary Care Provi latrell. Call [facility] ([phone]) or report to the closest Emergency Room. Call 911 if necessary. 10/05/17 0528 <Electronically signed by Emery Allen MD> Date ____ Emery Allen MD Cosigner Signature (If Indicated): Date CC: Nia Uriostegui DO 05-Oct-2017 Emergency Department Summary Result: Comments: See Note; NOTES: [facility] Medical Records Department [address] [place] [address] Emergency Department Summary 10/05/17 0435 MR#: [id number] Acct: [id number] Name: COMFORT OLSON Rep #: [id number] : 1940 76 From: Emery Allen MD [...] flutter This not e was generated with Kaleidoscope dictation software. It may contain incorrect words, [...] your Primary Care Provider. Call [facility] ([phone]) or report to the closest Emergency Room. Call 911 if necessary. 10/05/17 0528 &#60 ;Electronically signed by Emery Allen MD> Date Emery Allen MD Cosigner Signature (If Indicated): Date CC: Nia Uriostegui DO 05-Oct-2017 Chest 1 View (Portable) Result: Comments: See Note; NOTES: [facility] Imaging Services [address] [place] [address] Chest 1 View (Portable) MR#: [id number] Acct: [id number] Name: COMFORT OLSON Rep #: [id number] : 1940 F 76 From: Chris Dwyer MD PCP: Nia Uriostegui DO Status: REG ER Study: Chest 1 View (Portable) Date of Exam: 10/05/17 Exam# [id number] Ordering Dr: Emery Allen MD STUDY: X-R [...] of the upper abdomen. ORDER # : [id number] RAD/Chest 1 View (Portable) IMPRESSION: Mild cardiomegaly. Minimal persistent left basilar atelectasis. No evidence for acute cardiopulmonary pathology. Electronically Signed: Chris Dwyer MD at 2:42 EDT , Service support , CC: Emery Allen MD; Nia Uriostegui DO Electrical Drafter: Signed 03-Oct-2017 12 Lead Electrocardiogram Result: Comments: See Note; NOTES: [facility] Cardiovascular Services [address] [place] [address] 12 Lead EKG 10/02/17 1353 MR#: [id number] Acct: [id number] Name: COMFORT OLSON Rep # : [id number] : 1940 76 From: Jonel Rashid MD Attending Dr: Gay ROSAS,Jonel Status: REG CLI Ordering Dr: Richard Lombardo NP-Kathleen Date: 10/02/17 Location: [facility] Sex: F C [...] ECG Confirmed by JONEL RASHID MD ([id number]), manuscript editor AMIRA CASTRO (56) on 10/03/2017 1:43:28 PM Referred By: Jonel Rashid Confirmed By:USMAN RASHID MD 10/03/17 1343 Date Jonel Rashid MD CC: JOSSELYN Lombardo; Jonel Rashid MD; Nia Uriostegui DO Signed 02-Oct-2017 Echo, Complete w/ Contrast Result: Comments: See Note; NOTES: [facility] Cardiovascular Services [address] [place] [address] Echo Complete W/ Contrast 10/02/17 1250 MR#: [id number] Acct: [id number] Name: COMFORT JONES Rep #: [id number] : 1940 76 From: Jonel Rashid MD Attending Dr: Gay ROSAS,Jonel Status: REG CLI Ordering Dr: Jonel Rashid MD Date: 10/02/17 Location: [facility] Sex: F C Admitted: Reason [...] Date Dictated: 10/02/17 1250 Date Transcribed: 10/02/171742 Electrical Drafter: Signed 02-Oct-2017 12 Lead Electrocardiogram Result: Comments: See Note; NOTES: [facility] Cardiovascular Services [address] [place] [address] 12 Lead EKG 09/29/17 1035 MR#: [id number] Acct: [id number] Name: COMFORT OLSON Rep # : [id number] : 1940 76 From: Antonio Tovar MD [...] ECG Confirmed by ZARA ROSAS, ANTONIO ([id number]), manuscript editor AMIRA CASTRO (56) on 10/02/2017 1:30:21 PM Refer red By: BOZENA Confirmed By:ATNONIO TOVAR MD 10/02/17 1330 Date Antonio Tovar MD CC: Nia Uriostegui DO; Jignesh Tello MD Signed 02-Oct-2017 12 Lead Electrocardiogram Result: Comments: See Note; NOTES: [facility] Cardiovascular Services [address] [place] [address] 12 Lead EKG 09/29/17 1020 MR#: [id number] Acct: [id number] Name: COMFORT OLSON Rep # : [id number] : 1940 76 From: Antonio Tovar MD [...] Abnormal ECG Confirmed by ANTONIO TOVAR MD ([id number]), AMIRA Roldan (56) on 10/02/2017 1:27:54 PM Referred By: BOZENA Confirmed By:ANTONIO TOVAR MD 10/02/17 1327 Date Antonio Tovar MD CC: Nia Uriostegui DO; Jignesh Tello MD Signed 02-Oct-2017 12 Lead Electrocardiogram Result: Comments: See Note; NOTES: [facility] Cardiovascular Services [address] [place] [address] 12 Lead EKG 09/29/17 0905 MR#: [id number] Acct: [id number] Name: COMFORT OLSON Rep # : [id number] : 1940 76 From: Antonio Tovar MD [...] Abnormal ECG Confirmed by ANTONIO TOVAR MD ([id number]), manuscript editor AMIRA CASTRO (56) on 10/02/2017 1:27:13 PM Referred By: BOZENA Anne d By:ANTONIO TOVAR MD 10/02/17 1327 Date Antonio Tovar MD CC: Nia Uriostegui DO; Jignesh Tello MD Signed 02-Oct-2017 12 Lead Electrocardiogram Result: Comments: See Note; NOTES: [facility] Cardiovascular Services [address] [place] [address] 12 Lead EKG 09/29/17 0926 MR#: [id number] Acct: [id number] Name: COMFORT OLSON Rep # : [id number] : 1940 76 From: Antonio Tovar MD [...] ECG Confirmed by ZARA ROSAS, ANTONIO ([id number]), manuscript editor AMIRA CASTRO (56) on 10/02/2017 1:26:27 PM Referr ed By: BOZENA Confirmed By:ANTONIO TOVAR MD 10/02/171325 Date Antonio Tovar MD CC: Nia Uriostegui DO; Jignesh Tello MD Signed 29-Sep-2017 Emergency Department Summary Result: Comments: See Note; NOTES: [facility] Medical Records Department [address] [place] [address] Emergency Department Summary 09/29/17 0912 MR#: [id number] Acct: [id number] Name: COMFORT OLSON Rep #: [id number] : 1940 76 From: Jignesh Tello MD [...] Sinus bradycardia. This note was generated with Kaleidoscope dictation software. It may contain incorrect words, [...] problems, contact your Primary Care Provider. Call [employer] Registry ([phone]) or report to the closest Emergency Room. Call 911 if necessary. 09/29/17 1161 <Electronically si gned by Jignesh Tello MD> Date Jignesh Tello MD Cosigner Signature (If Indicated): Date CC: Nia Uriostegui DO 29-Sep-2017 Chest 1 View (Portable) Result: Comments: See Note; NOTES: [facility] Imaging Services [address] [place] [address] Chest 1 View (Portable) MR#: [id number] Acct: [id number] Name: COMFORT OLSON Rep #: [id number] : 1940 F 76 From: John Babcock MD PCP: Nia Uriostegui DO Status: REG ER Study: Chest 1 View (Portable) Date of Exam: 09/29/17 Exam# [id number] Ordering Dr: Jignesh Tello MD STUDY: X-RAY [...] John Babcock MD at 9:55 EDT Tel [phone], Service support , CC: Nia Uriostegui DO; Jignesh Tello MD Electrical Drafter: Signed 25-Sep-2017 Cardiology Visit Report Result: Comments: See Note; NOTES: [facility] [address] [place] [address] OFFICE VISIT Date of Service: 09/25/17 MR#: [id number] Acct: [id number] Name: COMFORT OLSON p #: [id number] : 1940 Provider: Jonel Rashid MD Age/Sex: 76/F Location: [facility] Status: Signed HPI HPI Chief Complaint: [...] brachial Intake Visit Reasons: 6 M FU Molder Machine Required: No Accompanied by: nonw Is patient [...] BID 08/24/17 [History Confirmed 09/25/17] Met hscopolamine Brock 5 mg PO BID 08/24/17 [History Confirmed [...] PO QDAY tab 09/25/17 [History Confirmed 09/25/17] [facility] Medical History Other secondary pulmonary hypertension (Chronic) Cardiomyopathy in diseases classified elsewhere (Chronic) Other cerebral infarction (Chronic) Paroxysmal atrial fibrillation (Chroni c) Atrial enlargement, 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 4. Atherosclerosis of [place] coronary artery of [place] heart without angina pectoris I25.10 08/06/2004 CA BG x2 VILLAGRAN side to side to second Diagonal and end to side to Anterior Descending artery in Sequential fashion. 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 transplan joel heart: [place] heart Mixed hyperlipidemia E78.2 Hyperlipidemia type: mixed hyperlipidemia Coding Level of Care Code Off vis,est,level 4 Diagnoses Paroxysmal atrial fibrillation I48.0 Cardiomyopath y in diseases classified elsewhere I43 Essential hypertension I10 Hypertension type: essential hypertension Atherosclerosis of [place] coronary artery of [place] heart without angina pectoris I25.10 [place] vs. transplanted heart: [place] heart Mixed hyperlipidemia E78.2 Hyperlipidemia type: mixed hyperlipidemia 09/25/17 1029 <Electronically signed by Jonel Rashid MD> Date __ Jonel Rashid MD Cosigner Signature: Date (if applicable) CC: Nia Uriostegui DO 26-Aug-2017 12 Lead Electrocardiogram Result: Comments: See Note; NOTES: [facility] Cardiovascular Services [address] [place] [address] 12 Lead EKG 08/24/17 1336 MR#: [id number] Acct: [id number] Name: COMFORT OLSON Rep # : [id number] : 1940 76 From: Jonel Rashid MD [...] ECG Confirmed by JONEL RASHID MD ([id number]), manuscript editor AMIRA CASTRO (56) on 08/26/2017 1:37:24 PM Referred B y: YONI Confirmed By:JONEL RASHID MD 08/26/17 1337 Date Jonel Rashid MD CC: Nia Uriostegui DO; Alexis Kemp MD Signed 26-Aug-2017 12 Lead Electrocardiogram Result: Comments: See Note; NOTES: [facility] Cardiovascular Services [address] [place] [address] 12 Lead EKG 08/24/17 0956 MR#: [id number] Acct: [id number] Name: COMFORT OLSON Rep # : [id number] : 1940 76 From: Jonel Rashid MD [...] ECG Confirmed by GAY ROSAS, JONEL ([id number]), manuscript editor AMIRA CASTRO (56) on 08/26/2017 12:50:18 PM Referred By: YONI Confirmed By:JONEL RASHID MD 08/26/17 1250 Date Jonel Rashid MD CC: Nia Uriostegui DO; Alexis Kemp MD Signed 24-Aug-2017 Emergency Department Summary Result: Comments: See Note; NOTES: [facility] Medical Records Department [address] [place] [address] Emergency Department Summary 08/24/17 1336 MR#: [id number] Acct: [id number] Name: COMFORT OLSON Rep #: [id number] : 1940 76 From: Alexis Kemp MD [...] coronary disease This note was generated with Kaleidoscope dictation software. It may contain in correct [...] your Primary Care Provider. Call [facility] ([phone]) or report to the [facility] Emergency Room. Call 911 if necessary. 08/24/17 1340 <Electronically signed by Alexis Kemp MD> Date Alexis Villasenor Signdanutau re (If Indicated): Date CC: Jonel Rashid MD; Nia Uriostegui DO 24-Aug-2017 Chest PA and Lateral Result: Comments: See Note; NOTES: [facility] Imaging Services [address] [place] [address] Chest PA and Lateral MR#: [id number] Acct: [id number] Name: COMFORT OLSON Rep #: [id number] : 1940 F 76 From: Clyde Matute MD PCP: Nia Uriostegui DO Status: REG ER Study: Chest PA and Lateral Date of Exam: 08/24/17 Exam# [id number] Ordering Dr: Alexis Kemp MD STUDY: X-RAY [...] CC: Nia Uriostegui DO; Alexis Kemp MD Electrical Drafter: Signed 02-Jun-2017 12 Lead EKG performed by [facility] Result: Comments: See Note; NOTES: [facility] [address] [place] [address] 12 Lead EKG performed by [facility] 06/02/17 1121 MR#: [id number] Acct: [id number] Name: COMFORT OLSON Rep #: [id number] : 1940 76 From: Annemarie BLOOD Attending Dr: Annemarie Parsons Status: DEP AMB Ordering Dr: Annemarie Parsons Date: 06/02/17 Location: [facility] Sex: F C Admitted: [facility]/12 Lead EKG performed by [facility] ECG Report Interpretation Sinus Rhythm -Intraventricular conduction defect and left axis -possible anterior fas cicular block consider ventricular hypertrophy. - Nonspecific T-abnormality. ABNORMAL Electronically signed on 06/04/2017 at 14:14 by Jonel Rashid 06/04/17 1415 Date Annemarie BLOOD CC: Nia Uriostegui DO Date Dictated: 06/02/17 112 Date Transcribed: 06/02/171120 Electrical Drafter: BARBY Signed 29-May-2017 Cardiology Visit Report Result: Comments: See Note; NOTES: [facility] [address] [place], [place] [address]. [address] [place] [address] OFFICE VISIT Date of Service: 05/26/17 MR#: [id number] Acct: [id number] Name: COMFORT OLSON Re p #: [id number] : 1940 Provider: Annemarie Parsons Age/Sex: 76/F Location: [facility] Status: Signed HPI HPI Details: COMFORT [...] surgery in 2004. She had an VILLAGRAN [id number] to second diagonal and to anterior descending [...] (BMI) 33.3 Intake Visit Reasons: per Susi Molder Machine Required: No Accompanied by: NONE Is patient [...] PO DAILY 11/11/16 [History Confirmed 05/26/17] Methscopolamine Brock 5 mg PO BID 11/11/16 [History Confirmed [...] enlargement, left (Chronic) Atherosclerotic heart disease of [place] coronary artery without angina pectoris (Chronic) HTN [...] week for an EKG. 2. Atherosclerosis of [place] coronary artery of [place] heart without angina pectoris I25.10 08/06/2004 CABG x2 VILLAGRAN side to side to second Diagonal and end to side to Anterior [place] cending artery in Sequential fashion. [facility]: 08/01/2004; 10/15/2011 Plan - JEREMI Mcpherson [...] The above patient was discussed with Dr. Gay, he agrees with plan of care. Thank [...] 1 Week (EKG) 05/26/17 (keep appt with POWER TOOL REPAIRER) Coding Level of Care Code Off vis,est,level 4 Diagnos es Dyspnea on exertion R06.09 Atherosclerosis of [place] coronary artery of [place] heart without angina pectoris I25.10 [place] vs. transplanted heart: [place] heart Essential hypertension I10 Hypertension type: essential hypertension Mixed hyperlipidemia E78.2 Hyperlipidemia type: mixed hyperlipidemia Paroxysmal atrial fibrillation I48.0 Atrial fibrillation type: paroxysmal Coding Level of Care Code O ff vis,est,level 4 Diagnoses Dyspnea on exertion R06.09 Atherosclerosis of [place] coronary artery of [place] heart without angina pectoris I25.10 [place] vs. transplanted heart: [place] heart Essential hy pertension I10 Hypertension type: [...] CARLOS EDUARDO Result: Comments: See Note; NOTES: [facility] [address] [place] [address] 12 Lead EKG performed by CARLOS EDUARDO 05/26/17 1521 MR#: [id number] Acct: [id number] Name: COMFORT OLSON Rep #: [id number] : 1940 76 From: Annemarie BLOOD Attending Dr: Annemarie Parsons Status: DEP AMB Ordering Dr: Annemarie Parsons Date: 05/26/17 [place] [facility] Sex: F C Admitted: B[facility]/12 Lead EKG performed by [facility] ECG Report Interpretation Marked sinus Bradycardia -Poor R-wave progression - nonspecific -consider old anterior infarct. -Nonspecific ST depression -Nondiagnostic. ABNORMAL Electronically signed on 05/27/2017 at 08:40 by Jonel Rashid 05/27/17 0841 Date Annemarie BLOOD CC: Nia Uriostegui DO Date Dictated: 05/26/17 1521 Date Transcribed: 05/26/17 152 Electrical Drafter: BARBY Signed 16-May-2017 Office Visit Report Result: Comments: See Note; NOTES: [address] [address] OFFICE VISIT Date of Service: 05/16/17 MR#: [id number] Acct: [id number] Patient: COMFORT OLSON Rep #: [id number] : 1940 Provider: Jonel Rashid MD Age/Sex: 76/F [place] [facility] [place]: Signed Intake Intake Visit Reasons: EKG PER MMM Allergies No Known Allergies Allergy (Verified 05/14/17 10:24) Medications Aspirin E.C. [Ecotrin] 325 mg PO DAILY@0800 11/11/16 [History Confirmed 05/14/17] Cholecalciferol (Vitamin D3) [Vitamin D3] 2,000 unit PO DAILY 11/11/16 [History Confirmed 05/14/17] Flutic asone/Salmeterol [Advair 500-50 Diskus] 1 puff INHALATION BID 11/11/16 [History Confirmed 05/14/17] Lansoprazole 30 mg PO DAILY 10/02/17 [History Confirmed 05/14/17] Linagliptin [Tradjenta] 5 mg PO SON Y 11/11/16 [History Confirmed 05/14/17] Methscopolamine Brock 5 mg PO BID 11/11/16 [History Confirmed [...] Orozco 16-May-2017 12 Lead EKG performed by [facility] Result: Comments: See Note; NOTES: [facility] [address] [place] [address] 12 Lead EKG performed by [facility] 05/16/171043 MR#: [id number] Acct: [id number] Name: COMFORT OLSON Rep #: [id number] : 1940 76 From: Annemarie BLOOD Attending Dr: Jonel Rashid MD Status: DEP AMB Ordering Dr: Annemarie Parsons Date: 05/16/17 Location: [facility] Sex: F C Adm itted: [facility]/12 Lead EKG performed by [facility] Sinus Bradycardia -Poor R-wave progression -may be secondary to pulmonary isease consider old anterior infarct. Rightward P/QRS axis and rota tion possible pulmonary disease. ABNORMAL 05/16/171649 <Electronically signed by Annemarie BLOOD> Date Annemarie BLOOD CC: Nia Uriostegui DO Date Dictated: 05/16/171043 Date Transcribed: 05/16/171043 Electrical Drafter: BARBY Signed 16-May-2017 12 Lead EKG performed by [facility] Result: Comments: See Note; NOTES: [facility] [address] [place] [address] 12 Lead EKG performed by [facility] 05/16/17 1044 MR#: [id number] Acct: [id number] Name: COMFORT OLSON Rep #: [id number] : 1940 76 From: Annemarie BLOOD Attending Dr: Jonel Rashid MD Status: DEP AMB Ordering Dr: Annemarie Parsons Date: 05/16/17 Location: [facility] Sex: F C Adm itted: [facility]/12 Lead EKG performed by [facility] ECG Report Interpretation Sinus Bradycardia -Poor R-wave progression -may be secondary to pulmonary disease conside r old anterior infarct. Rightward P/QRS axis and rotation -possible pulmonary disease. ABNORMAL Electronically signed on 05/17/2017 at 18:31 by Jonel Rashid 05/17/17 1834 Date Annemarie BLOOD CC: Nia Uriostegui DO Date Dictated: 05/16/17 1044 Date Transcribed: 05/16/171043 Electrical Drafter: BARBY Signed 14-May-2017 Cardiology Visit Report Result: Comments: See Note; NOTES: [facility] [address] [place] [address] OFFICE VISIT Date of Service: 05/14/17 MR#: [id number] Acct: [id number] Name: COMFORT OLSON Re p #: [id number] : 1940 Provider: Annemarie Parsons Age/Sex: 76/F Location: [facility] Status: Signed HPI HPI Details: COMFORT OLSON, is a 76 F who presents to the office today for an urgent appointm ent for increased shortness of breath. Patient does have a hospital of coronary artery disease with bypass surgery in 2004. 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 Ath erosclerosis of [place] coronary artery of [place] heart without angina pectoris I25.10 08/06/2004 CABG [...] Diagnoses Paroxysmal atrial fibrillation I48.0 Atherosclerosis of [place] coronary artery of [place] heart without angina pectoris I25.10 [place] vs. transplanted heart: [place] heart Essential hy pertension I10 Hypertension type: essential hypertension Mixed hyperlipidemia E78.2 Hyperlipidemia type: mixed hyperlipidemia Coding Level of Care Code Off vis,est,level 4 Diagnoses Paroxysmal atrial fibrillation I48.0 Atherosclerosis of [place] coronary artery of [place] heart without angina pectoris I25.10 [place] vs. transplanted heart: [place] heart Essential hypertension I10 Hypertension type: ess ential hypertension Mixed hyperlipidemia E78.2 Hyperlipidemia type: mixed hyperlipidemia 05/14/17 1718 <Electronically signed by Annemarie BLOOD> Date Annemarie BLOOD 05/14/17 1732<Electronically signed by Jonel Rashid MD> Cosigner Signature: Date (if applicable) Jonel Rashid MD CC: Nia Uriostegui 14-May-2017 12 Lead EKG performed by [facility] Result: Comments: See Note; NOTES: [facility] [address] [place] [address] 12 Lead EKG performed by [facility] 05/14/17 1104 MR#: [id number] Acct: [id number] Name: COMFORT OLSON Rep #: [id number] : 1940 76 From: Annemarie BLOOD Attending Dr: Annemarie Parsons Status: DEP AMB Ordering Dr: Annemarie Parsons Date: 05/14/17 Location: [facility] Sex: F C Admitted: [facility]/12 Lead EKG performed by [facility] Marked sinus Bradycardia -Intraventricular conduction defect -consider left entricular hypertrophy. -Lateral infarct -age undetermined. - -abnormality -Possible Inferior and lateral ischemia. ABNORMAL 05/15/17 1041 <Electronically signed by Annemarie BLOOD> Date M farhan BLOOD CC: Nia Uriostegui DO Date Dictated: 05/14/171103 Date Transcribed: 05/14/171103 Electrical Drafter: BARBY Signed 14-May-2017 12 Lead EKG performed by [facility] Result: Comments: See Note; NOTES: [facility] [address] [place] [address] 12 Lead EKG performed by [facility] 05/14/171103 MR#: [id number] Acct: [id number] Name: COMFORT OLSON Rep #: [id number] : 1940 76 From: Annemarie BLOOD Attending Dr: Annemarie Parsons Status: DEP AMB Ordering Dr: Annemarie Parsons Date: 05/14/17 Location: [facility] Sex: F C Admitted: [facility]/12 Lead EKG performed by [facility] ECG Report Interpretation Marked sinus Bradycardia -Intraventricular conduction defect -consider left ventricul ar hypertrophy. -Lateral infarct -age undetermined. - T-abnormality -Possible Inferior and lateral ischemia. ABNORMAL Electronically signed on 05/17/2017 at 18:31 by Jonel Rashid 05/17/17 1834 Date __ Annemarie BLOOD CC: Nia Uriostegui DO Date Dictated: 05/14/171103 Date Transcribed: 05/14/171103 Electrical Drafter: BARBY Signed 09-May-2017 Office Visit Report Result: Comments: See Note; NOTES: [facility] [address] [place] [address]. [place] [address] OFFICE VISIT Date of Service: 05/09/17 MR#: [id number] Acct: [id number] Patient: COMFORT OLSON Rep #: [id number] : 1940 Provider: Albert Kerr RN Age/Sex: 76/F Location: [facility] Status: Signed Intake Intake Visit Reasons: EKG 4 wk s/p per POWER TOOL REPAIRER Allergies No Known Allergies Allergy (Verified 05/04 [...] PO DAILY 11/11/16 [History Confirmed 04/19/17] Methscopolamine Brock 5 mg PO BID 11/11/16 [History Confirmed [...] Seaman 09-May-2017 12 Lead EKG performed by [facility] Result: Comments: See Note; NOTES: [facility] [address] [place] [address] 12 Lead EKG performed by [facility] 05/09/17 1110 MR#: [id number] Acct: [id number] Name: COMFORT OLSON Rep #: [id number] : 1940 76 From: Jonel Rashid MD Attending Dr: Albert Kerr RN Status: DEP AMB Ordering Dr: Jonel Rashid MD Date: 05/09/17 Location: [facility] Sex: F C Admitted: [facility]/12 Lead EKG performed by [facility] ECG Report Interpretation Sinus Rhythm -Nonspecific QRS widening and anterior fascicular block. -Poor R-wave progression -nonspec ific -consider old anterior infarct. -Nonspecific ST depression -Nondiagnostic. ABNORMAL Electronically signed on 05/17/2017 at 18:31 by Jonel Rashid 05/17/17 1834 Date Jonel Rashid MD CC: Nia Uriostegui DO Date Dictated: 05/09/171109 Date Transcribed: 05/09/171109 Electrical Drafter: CO Signed 09-May-2017 12 Lead EKG performed by [facility] Result: Comments: See Note; NOTES: [facility] [address] [place] [address] 12 Lead EKG performed by [facility] 05/09/171109 MR#: [id number] Acct: [id number] Name: COMFORT OLSON Rep #: [id number] : 1940 76 From: Jonel Rashid MD Attending Dr: Albert Kerr RN Status: DEP AMB Ordering Dr: Jonel Rashid MD Date: 05/09/17 [place] [facility] [place]: F C Admitted: [facility]/12 Lead EKG performed by [facility] Sinus Rhythm -Nonspecific QRS widening and anterior fascicular block. -Poor -wave progression -nonspecific -consider old anterior infarct. -Nonspecific T d epression -Nondiagnostic. ABNORMAL 05/09/17 1610 <Electronically signed by Jonel Rashid MD> Date Joenl Rashid MD CC: Nia Beth O Date Dictated: 05/09/171109 Date Transcribed: 05/09/171109 Electrical Drafter: CO Signed 06-May-2017 12 Lead Electrocardiogram Result: Comments: See Note; NOTES: [facility] Cardiovascular Services [address] [place] [address] 12 Lead EKG 05/04/17 2237 MR#: [id number] Acct: [id number] Name: COMFORT OLSON Rep # : [id number] : 1940 76 From: Jonel Rashid MD [...] ECG Confirmed by GAY ROSAS, JONEL ([id number]), manuscript editor AMIRA CASTRO ([id number]) on 05/06/2017 1:42:52 PM Referred By: DONY Confirmed By:JONEL RASHID MD 05/06/17 1342 Date Jonel Rashid MD CC: Natalya Napoles MD; Nia Uriostegui Signed 06-May-2017 12 Lead Electrocardiogram Result: Comments: See Note; NOTES: [facility] [address] [place] [address] 12 Lead EKG 05/04/17 2045 MR#: [id number] Acct: [id number] Name: COMFORT OLSON Rep # : [id number] : 1940 76 From: Jonel Rsahid MD Attending Dr: Status: DEP ER Ordering [...] ECG Confirmed by JONEL RASHID MD ([id number]), manuscript editor AMIRA CASTRO ([id number]) on 05/06/2017 1:08:29 PM Referred By: RICKY NAPOLES Confirmed By:JONEL RASHID MD 05/06/17 1308 Date Jonel Rashid MD CC: Natalya Napoles MD; Nia Uriostegui DO Signed 04-May-2017 Emergency Department Summary Result: Comments: See Note; NOTES: [facility] Medical Records Department [address] [place] [address] Emergency Department Summary 05/04/17 2259 MR#: [id number] Acct: [id number] Name: COMFORT OLSON Rep #: [id number] : 1940 76 From: Natalya Napoles MD [...] ED physician This note was generated with Kaleidoscope dictation software. It may contain incorre ct words, spelling, and punctuation that were not noted in review of the chart prior to signing ED Disposition - Plan for ED Patient: Chief Complaint: Palpitations Referrals: Nia Uriostegui, [[facility] Care Provider] - What to do if you have Problems For any increased pain, shortness of breath, bleeding, nausea or vomiting, chest pain, or any unexpected problems, contact your Primary Care Pro vider. Call [facility] ([phone]) or report to the closest Emergency Room. Call 911 if necessary. 05/04/17 1973 <Electronically signed by Natalya Napoles MD> Date Natalya Napoles MD Cosigner Signature (If Indicated): Date CC: Nia Uriostegui 04-May-2017 Discharge Instruction Result: Comments: See Note; NOTES: [facility] Medical Records Department [address] [place] [address] Discharge Instruction 05/04/172339 MR#: [id number] Acct: [id number] Name: Liyah OLSON Rep #: [id number] : 1940 76 From: Natalya Napoles MD [...] your Primary Care Provider. Call [facility] ([phone]) or report to the closest Emergency Room. Call 911 if necessary. 05/04/172340 <Electronically signed by Natalya Napoles MD> Date Natalya mary MD Cosigner Signature (If Indicated): Date CC: Nia Moody DO 04-May-2017 Chest 1 View (Portable) Result: Comments: See Note; NOTES: [facility] Imaging Services [address] [place] [address] Chest 1 View (Portable) MR#: [id number] Acct: [id number] Name: COMFORT OLSON Rep #: [id number] : 1940 F 76 From: Rafael Perez MD PCP: Nia Uriostegui DO Status: REG ER Study: Chest 1 View (Portable) Date of Exam: 05/04/17 Exam# [id number] Ordering Dr: Natalya Napoles MD STUDY: X [...] CC: Natalya Napoles MD; Nia Uriostegui DO Electrical Drafter: Signed 19-Apr-2017 Emergency Department Summary Result: Comments: See Note; NOTES: [facility] Medical Records Department [address] [place] [address] Emergency Department Summary 04/19/17 1757 MR#: [id number] Acct: [id number] Name: COMFORT OLSON Rep #: [id number] : 1940 76 From: Deisi Ryan MD [...] with RVR This note was generated with Bridg software. It may contain incorrect words, spelling, [...] your Primary Care Provider. Call [facility] ([phone]) or report to the closest Emergency Room. Call 911 if necessary. 04/19/171930 <Electronically signed by Deisi moscoso MD> Date Deisi Ryan MD Cosigner Signature (If Indicated): Date CC: Nia Uriostegui DO 19-Apr-2017 Chest 1 View (Portable) Result: Comments: See Note; NOTES: [facility] Imaging Services [address] [place] [address] Chest 1 View (Portable) MR#: [id number] Acct: [id number] Name: COMFORT OLSON Rep #: [id number] : 1940 F 76 From: Thanh Ambriz MD PCP: Nia Uriostegui DO Status: PRE ER Study: Chest 1 View (Portable) Date of Exam: 04/19/17 Exam# [id number] Ordering Dr: Deisi Ryan MD STUDY: X- [...] CC: Deisi Ryan MD; Nia Uriostegui DO Electrical Drafter: Signed 14-Mar-2017 Cardiology Visit Report Result: Comments: See Note; NOTES: [facility] [address] [place] [address] OFFICE VISIT Date of Service: 03/14/17 MR#: [id number] Acct: [id number] Name: COMFORT OLSON p #: [id number] : 1940 Provider: JOSSELYN Lombardo Age/Sex: 76/F Location: [facility] Status: Signed HPI 3 M FU: [...] less than 30% stenosis. Patient returned to [facility] approximately one week later and showed a [...] Intak e Visit Reasons: 3 M FU Molder Machine Required: No Accompanied by: None Is patient in pain?: No Allergies No Known Allergies Allergy (Verified 03/14/17 10:06) Medications Aspirin E.C. [Ecotrin] 325 mg PO DAILY@0800 11/11/16 [History Confirmed 02/28/17] Cholecalciferol (Vitamin D3) [Vitamin D3] 2,000 unit PO DAILY 10/02/17 [History Confirmed 02/28/17] Fluticasone/Salmeterol [Advair 500-50 Diskus] 1 puff INHALATION BID 11/11/16 [History Confirmed 11/22/16] Lansoprazole 30 mg PO DAILY 11/11/16 [History Confirmed 02/28/17] Linagliptin [Tradjenta] 5 mg PO DAILY 11/11/16 [History Confirmed 02/28/17] M ethscopolamine Brock 5 mg PO BID 11/11/16 [History Confirmed [...] enlargement, left (Chronic) Atherosclerotic heart disease of [place] coronary artery without cynthia na pectoris (Chronic) [...] updated BP readings. 3. Atheroscle rosis of [place] coronary artery of [place] heart without angina pectoris I25.10 08/06/2004 CABG [...] to sa lance. Follow Up 6 Months (POWER TOOL REPAIRER) Coding Level of Care Code Off vis,est,level 3 Diagnoses Essential hypertension I10 Hypertension type: essential hypertension Cardiomyopathy in diseases classified elsew here I43 Atherosclerosis of [place] coronary artery of [place] heart without angina pectoris I25.10 [place] vs. transplanted heart: [place] heart Paroxysmal atrial fibrillation I48.0 Mixed hyperlipidemia E7 8.2 Hyperlipidemia type: mixed hyperlipidemia Coding Level of Care Code Off vis,est,level 3 Diagnoses Essential hypertension I10 Hypertension type: essential hypertension Cardiomyopathy in diseases c lassified elsewhere I43 Atherosclerosis of [place] coronary artery of [place] heart without angina pectoris I25.10 [place] vs. transplanted heart: [place] heart Paroxysmal atrial fibrillation I48.0 Mixed hy perlipidemia E78.2 Hyperlipidemia type: mixed hyperlipidemia 03/14/17 1154 <Electronically signed by Richard FREGOSOC> Date Richard Lombardo VBA DEVELOPER-C 03/14/17 1527<Electronically signed by Jonel Rashid MD> Cosigner Signature: Date (if applicable) Jonel Rashid MD CC: Nia Uriostegui DO 10-Mar-2017 Echo, Complete w/ Contrast Result: Comments: See Note; NOTES: [facility] Cardiovascular Services [address] [place] [address] Echo Complete W/ Contrast 03/10/17 1008 MR#: [id number] Acct: [id number] Name: COMFORT JONES Rep #: [id number] : 1940 76 From: Jonel Rashid MD Attending Dr: Jonel Rashid MD Status: REG I Ordering Dr: Jonel Rashid MD Date: 03/10/17 Location: [facility] Sex: F C Admitted: Reason [...] 03/10/17 1008 Date Transcr ibed: 03/10/17 1412 Electrical Drafter: Signed 13-Nov-2016 CTA Chest W/WO Contrast Result: Comments: See Note; NOTES: [facility] Imaging Services [address] [place] [address] CTA Chest W/WO Contrast MR#: [id number] Acct: [id number] Name: COMFORT OLSON Rep #: [id number] : 1940 F 75 From: Charly Almendarez DO PCP: Nia Uriostegui DO Status: REG ER Study: CTA Chest W/WO Contrast Date of Exam: 11/13/16 Exam# [id number] Ordering Dr: Emery Allen MD STUDY: CTA [...] CC: Emery Allen MD; Nia Uriostegui DO Electrical Drafter: Signed 11-Nov-2016 Chest 1 View (Portable) Result: Comments: See Note; NOTES: [facility] Imaging Services [address] [place] [address] Chest 1 View (Portable) MR#: [id number] Acct: [id number] Name: COMFORT OLSON Rep #: [id number] : 1940 F 75 From: Jorge Herman MD PCP: Nia Uriostegui DO Status: REG ER Study: Chest 1 View (Portable) Date of Exam: 11/11/16 Exam# [id number] Ordering Dr: Jignesh Tello MD STUDY: X-RA [...] CC: Nia vo DO; Jignesh Tello MD Electrical Drafter: Signed 16-Jan-2016 Chest PA and Lateral Result: Comments: See Note; NOTES: [facility] Imaging Services [address] [place] [address] Verda 4d Chest PA and Lateral MR#: [id number] Acct: [id number] Name: COMFORT OLSON Rep #: [id number] : 1940 F 75 From: John Babcock MD PCP: Balbir Cramer Status: REG CLI Study: Chest PA and Lateral Date of Exam: 01/16/16 Exam# [id number] Ordering Dr: Balbir Cramer STUDY: X-RAY CHEST [...] John Babcock MD at 13:26 EST Tel [phone], Service support , CC: Balbir Cramer Electrical Drafter: Signed 14-Dec-2014 Bilat Scrn Digital AND CAD Result: Comments: See Note; NOTES: [facility] Imaging Services [address] [place] [address] Verdana 4d Bilat Scrn Digital AND CAD MR#: [id number] Acct: [id number] Name: COMFORT OLSON Rep #: [id number] : 1940 F 74 From: John Babcock MD PCP: Maylin Melendez DO Status: REG CLI Study: Bilat Scrn Digital AND CAD Date of Exam: 12/14/14 Exam# [id number] Ordering D r: Maylin Melendez DO MAMMOGRAPHY [...] John Babcock MD at 14:05 EST Tel [phone], Service support [phone], CC: Maylin Melendez DO Electrical Drafter: Signed 14-Dec-2014 Carotid Duplex Ultrasound Result: Comments: See Note; NOTES: [facility] Cardiovascular Services [address] [place] [address] Carotid Duplex Ultrasound 12/12/14 1007 MR#: [id number] Acct: [id number] Name: COMFORT OLSON Rep #: [id number] : 1940 74 From: Darian Anderson MD Attending Dr: Maylin Melendez DO Status: REG CLI Ordering Dr: Maylin Melendez DO Date: 12/12/14 Location: [facility] Sex: F C Admi tted: [...] the left vertebral artery. Procedure Carotid Duplex 52160. Exam performed in department. Interpreta tion Summary [...] Date Dictated: 12/12/14 1007 Date Transcribed: 12/14/1437 Electrical Drafter: Signed 25-Apr-2014 Nuclear Stress Test - Chemical Result: Comments: See Note; NOTES: [facility] Imaging Services [address] [place] [address] Nuclear Medicine Report MR#: [id number] Acct: [id number] Name: COMFORT OLSON Rep #: [id number] : 1940 F 73 From: Jonel Rashid MD PCP: Maylin Melendez DO Status: REG CLI Study: Nuclear Stress Test - Chemical Date of Exam: 04/25/14 Exam# [id number] Ordering Dr: Jonel Rashid MD P HARMACOLOGIC [...] CC: Jonel Rashid MD; Maylin Melendez DO Electrical Drafter: CALIX Signed 31-Jan-2014 Spirometry (44802) Comments: Moderate restriction similar to previous Result: 14-Jan-2014 Chest PA and Lateral Result: Comments: See Note; NOTES: [facility] Imaging Services [address] [place] [address] Radiology Report MR#: [id number] Acct: [id number] Name: COMFORT OLSON Rep #: [id number] : 1940 F 73 From: John Babcock MD PCP: Maylin Melendez DO Status: REG CLI Study: Chest PA and Lateral Date of Exam: 01/14/14 Exam# [id number] Ordering Dr: Sherrie Amor STUDY: X-RAY CH [...] John Babcock MD at 14:58 EST Tel [phone], Service support [phone], RAD/Chest PA and Lateral IMPRESSION: Mild increased markings at the lung bases suggestive of linear atelectasis. Electronica lly Signed: John Babcock MD at 14:58 EST Tel [phone], Service support [phone], CC: Sherrie Amor; Maylin Melendez DO Electrical Drafter: Signed 07-Sep-2013 Knee 4 or More Views Result: Comments: See Note; NOTES: [facility] Imaging Services [address] [place] [address] Radiology Report MR#: [id number] Acct: [id number] Name: COMFORT OLSON Rep #: [id number] : 1940 F 72 From: Yusuf Lopes PCP: Maylin Melendez DO Status: REG CLI Study: Knee 4 or More Views Date of Exam: 09/07/13 Exam# [id number] Ordering Dr: Maylin Melendez DO STUDY: X-RAY [...] Yusuf Lopes MD at 4:00 EDT Tel [phone] , Service support [phone] , CC: Maylin Melendez DO Electrical Drafter: Signed 22-Aug-2013 Carotid Duplex Ultrasound Result: Comments: See Note; NOTES: [facility] Cardiovascular Services [address] [place] [address] Carotid Duplex Ultrasound 08/20/13 0945 MR#: [id number] Acct: [id number] Nam e: COMFORT OLSON Rep #: [id number] : 1940 72 From: Darian Anderson MD Attending Dr: Maylin Melendez DO Status: REG CLI Ordering Dr: Maylin Melendez DO Date: 08/20/13 Location: [facility] Sex: F C Admitted: Rt. Velocities/BP Lt. [...] the left vertebral artery. Procedure Carotid Duplex 39300. Exam performed in [facility]. Interpretation Summary Mild (<50%) stenosis right extracranial internal carotid. Mild (<50%) stenosis left extracranial internal carotid. Flow within the vertebral arteries is antegrade bilaterally. Ordering Physician: Maylin Melendez Performed By: Sanaz Sheth RVT : Maylin Mleendez DO Date Dictated: 08/20/1345 Date Transcribed: 08/22/13 0848 Electrical Drafter: Signed 09-Jul-2013 Chest PA and Lateral Result: Comments: See Note; NOTES: [facility] Imaging Services [address] [place] [address] Radiology Report MR#: [id number] Acct: [id number] Name: COMFORT OLSON Rep #: [id number] : 1940 F 72 From: Jermaine Khan DO PCP: Maylin Melendez DO Status: REG CLI Study: Chest PA and Lateral Date of Exam: 07/09/13 Exam# [id number] Ordering Dr: hSerrie Amor STUDY: X-RAY CHEST REAS ON FOR [...] Jermaine Khan DO at 22:50 EDT Tel [phone] , Service support [phone], CC: Sherrie Amor; Maylin Melendez DO Electrical Drafter: Signed 08-Jan-2013 PT Discharge Summary Result: Comments: See Note; NOTES: [facility] Physical Therapy [facility] [address] [place] [address] [address] [place] [id number] Fax REHABILITATION SERVICES DISCHARGE SUMMARY MR#: [id number] Acct: [id number] Name: COMFORT OLSON Rep #: [id number] : 1940 72 From: Farrukh Hull Referring [...] has. Farrukh Hull, PT T: NTS JOB: [id number] <Electronically signed by Farrukh Hull > 01/08/13 0648 CC: * Signed 18-Dec-2012 Inital Evaluation - PT Result: Comments: See Note; NOTES: [facility] Physical Therapy [facility] [address] [facility]. [address] [place] [address] Fax REHABILITATION SERVICES INITIAL EVALUATION MR#: [id number] Acct: [id number] Name: COMFORT OLSON Rep #: [id number] : 1940 72 From: Farrukh Hull Referring Dr.: Maylin Melendez DO Status: REG RCR Insurance: MEDICARE PAR T A B Eval Date: EDUCATION MANAGER BENEFIT PLAN DATE OF SERVICE: 12/18/2012 PHYSICIAN: [...] She has dizziness wi th left-sided Hallpike Palm test. No obvious nystagmus. Right- sided Hallpike [...] therapy. Farrukh Hull, PT T: NTS JOB: [id number] <Electronically signed by Farrukh Hull > 12/18/12 1151 CC: Signed For Medicare only, by signing this I certify the plan of care. 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 Status: Active Living Situation Comments: Lives with [...] kg/m2 Body Surface Area Calculated 1.92 m2 1-Pnx-944838:27 Pulse 70 /min Comments: Pattern: Regular Respiration [...] kg/m2 Body Surface Area Calculated 2.01 m2 77-Tif-285448:19 Temperature 96.1 f Pulse 76 /min Comments: [...] kg/m2 Body Surface Area Calculated 2 m2 20-Egn-690320:11 Comments: Recheck BP 158/82 Temperature 100 f [...] 0.00 cm Results Date Description Value Details 8-Taz-630293:39 Basic Metabolic Profile (BMP) Comments: [facility] [address] [place], [address] GAP 9 (Normal) Range: 5-15 CO2 26.0 [...] A.D.A. criteria.Please note revised GLUCOSE reference range mkndzcxyn87/02/2018. 3-Rpm-714992:42 HgA1C , Office (30828) HgA1C , Office 7.1 % (Normal) Range: 4.6 - 7.1 :42 Blood Glucose , Office (63787) Blood Glucose , Office 135 (Normal) :55 Basic Metabolic Profile (BMP) Comments: [facility] [address] [place], [place], [address] GAP 14 (Normal) Range: 5-15 CO2 23.0 [...] A.D.A. criteria.Please note revised GLUCOSE reference range kecbxmdoo76/02/2018. :55 CBC W/Diff, Automated Comments: [facility] [address] [place], [place], [address] Absolute Lymph 2.08 {X10_3/ul} (Normal) Range: 0.83-4.51 [...] 4.2-5.4 WBC 8.7 K/mm3 (Normal) Range: 4.4-11.0 31-Ljb-09588:55 Troponin-I Comments: [facility] [address] [place], [address] TROPONIN-I < 0.015 ng/mL (Normal) Comments: TROPONIN-I EXPECTED VALUES <0.045 Negative 0.045 - 0.590 Consistent with Cardiac Damage > OR = 0.600 Critical Value Not every elevated troponin is indicative of [place]. T hesevalues should be used with clinical judgement in examiningthe patient's clinical picture for diagnosis. To establisha diagnosis of [place] versus myocardial injury, there must be ademonstrated rise and/ or fall in the troponin values, inaddition to ischemic symptoms, EKG changes, new regionalwall motion abnormality, and/or angiographical evidence. PLEASE NOTE: REFERENCE RANGES EDITED 17:05 Basic Metabolic Profile (BMP) Comments: [facility] [address] [place], [address] GAP 8 (Normal) Range: 5-15 CO2 28.0 [...] range /02/2018. :05 CBC W/Diff, Automated Comments: [facility] [address] [place], [address] Absolute Lymph 2.24 {X10_3/ul} (Normal) Range: 0.83-4.51 [...] K/mm3 (Normal) Range: 4.4-11.0 :05 Troponin-I Comments: [facility] [address] [place], [place], [address] TROPONIN-I 0.020 ng/mL (Normal) Comments: TROPONIN-I EXPECTED VALUES <0.045 Negative 0.045 - 0.590 Consistent with Cardiac Damage > OR = 0.600 Critical Value Not every elevated troponin is indicative of [place]. T hesevalues should be used with clinical judgement in examiningthe patient's clinical picture for diagnosis. To establisha diagnosis of [place] versus myocardial injury, there must be ademonstrated rise and/ or fall in the troponin values, inaddition to ischemic symptoms, EKG changes, new regionalwall motion abnormality, and/or angiographical evidence. PLEASE NOTE: REFERENCE RANGES EDITED 06/23/1727-Aug-201781-Iuu-299515:18 HgA1C , Office (16810) HgA1C , Office 7.6 % (Abnormal) Range: 4.6 - 7.1 00-Vop-494755:18 Blood Glucose , Office (98545) Blood Glucose , Office 142 (Normal) :51 Basic Metabolic Profile (BMP) Comments: [facility] [address] [place], [place], [address] GAP 9 (Normal) Range: 5-15 CO2 25.0 [...] A.D.A. criteria.Please note revised GLUCOSE reference range tmnjvhoxl89/02/2018. 59-Iad-76261:51 CBC W/Diff, Automated Comments: [facility] [address] [place], [place], [address] Absolute Lymph 2.43 {X10_3/ul} (Normal) Range: 0.83-4.51 [...] 4.2-5.4 WBC 9.6 K/mm3 (Normal) Range: 4.4-11.0 71-Pgv-89298:51 Troponin-I Comments: [facility] [address] [place], [address] TROPONIN-I < 0.015 ng/mL (Normal) Comments: TROPONIN-I EXPECTED VALUES <0.045 Negative 0.045 - 0.590 Consistent with Cardiac Damage > OR = 0.600 Critical Value Not every elevated troponin is indicative of [place]. T hesevalues should be used with clinical judgement in examiningthe patient's clinical picture for diagnosis. To establisha diagnosis of [place] versus myocardial injury, there must be ademonstrated rise and/ or fall in the troponin values, inaddition to ischemic symptoms, EKG changes, new regionalwall motion abnormality, and/or angiographical evidence. PLEASE NOTE: REFERENCE RANGES EDITED 06/23/1728-May-201789-Rdt-576022:47 CALCIFEDIOL (85976) Comments: PATIENT NOT FASTINGPERFORMED BY: [facility] [facility] [id number] Vitamin D, 25-Hydroxy 20.2 ng/mL (Abnormal) Range: 30.0-100.0 Comments: Vitamin D deficiency has been defined by the [place] ofMedicine and an Endocrine Society practice guideline as alevel of serum 25-OH vitamin D less than 20 ng/mL (1,2).The Endocrine Society went on to further define vitamin Dinsufficiency as a level between 21 and 29 ng/mL (2).1. IOM ([place] of Medicine). 2010. Dietary reference intakes for calcium and D. [place]: The National Academies Press.2. Bobo MF, Estrellita STOCKTON, Maddi CALIX, et al. Evaluation, treatment, and prevention of vitamin D deficiency: an Endocrine Society clinical practice guideline. JCEM. 2010; 96(7):1911-30. 47-Kmc-475527:47 VITAMIN B-12 (CYANOCOBALAMIN) Comments: PATIENT NOT FASTINGPERFORMED BY: [facility] Mrdogo8874 [facility] [id number] (81271) Vitamin B12 311 pg/mL (Normal) Range: 232-1245 69-Tio-151194:26 HgA1C , Office (97422) HgA1C , Office 7.3 % (Abnormal) Range: 4.6 - 7.1 11-Vvw-181620:26 Blood Glucose , Office (84969) Blood Glucose , Office 136 (Normal) 00-Jvt-536352:56 Basic Metabolic Profile (BMP) Comments: 'TROP' Serial specimen #1, #2, #3, or #4: 1[facility] [address] [place], [address] GAP 11 (Normal) Range: 5-15 CO2 27.0 [...] A.D.A. criteria.Please note revised GLUCOSE reference range fxwvjbekw49/02/2018. 72-Rxx-494301:56 CBC W/Diff, Automated Comments: [facility] [address] [place], [address] Absolute Lymph 3.30 {X10_3/ul} (Normal) Range: 0.83-4.51 [...] 4.2-5.4 WBC 9.3 K/mm3 (Normal) Range: 4.4-11.0 02-Kjy-927177:56 Troponin-I Comments: 'TROP' Serial specimen #1, #2, #3, or #4: 1[facility] [address] [place], [place], [address] TROPONIN-I < 0.02 ng/mL (Normal) Comments: TROPONIN-I EXPECTED VALUES <0.05 NEGATIVE 0.06 - 0.59 AT RISK OF [place] > OR = 0.60 SUGGEST [place] 27-Hhs-889815:33 Basic Metabolic Profile (BMP) Comments: 'TROP' Serial specimen #1, #2, #3, or #4: [address] [place] [address] [address] [place], [place], [address] GAP 10 (Normal) Range: 5-15 CO2 25.0 [...] A.D.A. criteria.Please note revised GLUCOSE reference range fzdantlvd05/02/2018. 52-Qgu-813287:33 CBC W/Diff, Automated Comments: [facility] [address] [place], [place], [address] Absolute Lymph 3.48 {X10_3/ul} (Normal) Range: 0.83-4.51 [...] 4.2-5.4 WBC 10.4 K/mm3 (Normal) Range: 4.4-11.0 91-Ddr-790468:33 Troponin-I Comments: 'TROP' Serial specimen #1, #2, #3, or #4: 1[facility] [address] [place], [place], [address] TROPONIN-I 0.14 ng/mL (Abnormal) Comments: TROPONIN-I EXPECTED VALUES <0.05 NEGATIVE 0.06 - 0.59 AT RISK OF [place] > OR = 0.60 SUGGEST [place] 2-Xsx-294976:16 HgA1C , Office (39194) HgA1C , Office 7.9 % (Abnormal) Range: 4.6 - 7.1 9-Pkn-685972:15 Blood Glucose , Office (92584) Blood Glucose , Office 166 (Normal) 8-Vyz-830427:25 Basic Metabolic Profile (BMP) Comments: Order Date: 12/13/16Order Info: [id number] - *BMPComments: Reason:[facility] [address] [place], [address] GAP 9 (Normal) Range: 5-15 CO2 29.0 [...] 200 mg/dLsuggests DIABETES MELLITUS per A.D.A. criteria. 10-Dty-201615:27 Basic Metabolic Profile (BMP) Comments: Order Date: 11/19/16Order Info: [id number] - *BMPComments: Reason:[facility] [address] [place], [place], [address] GAP 8 (Normal) Range: 5-15 CO2 27.0 [...] 200 mg/dLsuggests DIABETES MELLITUS per A.D.A. criteria. 39-Wnm-475501:27 Partial Thromboplast Time Comments: Order Date: 11/19/16Order Info: [id number] - *PT/INROrder Info: [id number] - *PTT-[facility]romboplastin TimeWAdena [facility] [address] [place], [place], [address] PTT 29.4 s (Normal) Range: 24.1-36.2 :27 Prothrombin Time w/INR Comments: Order Date: 11/19/16Order Info: [id number] - *PT/INROrder Info: [id number] - *PTT-Partial Thromboplastin TimeWAdena [facility] Medical Center [address] [place], [place], [address](131) INR 1.1 (Normal) PROTIME 13.4 s (Normal) Range: 11.7-14.9 :05 Basic Metabolic Profile (BMP) Comments: 'TROP' Serial specimen #1, #2, #3, or #4: 1[facility] [address] [place], [place], [address] GAP 10 (Normal) Range: 5-15 CO2 25.0 [...] A.D.A. criteria. :05 BNP,B-Type NATRIURETIC PEPTIDE Comments: [facility] [address] [facility] [address] [place], [place], [address] B-TYPE ANDREW PEP 316.0 pg/mL (Abnormal) Range: 0-100 :05 CBC W/Diff, Automated Comments: [facility] [address] [place], [place], [address] Absolute Lymph 1.26 {X10_3/ul} (Normal) Range: 0.83-4.51 [...] Serial specimen #1, #2, #3, or #4: [address] [place] [address] [address] [facility] [place], [address] TROPONIN-I 0.15 ng/mL (Abnormal) Comments: TROPONIN-I EXPECTED VALUES <0.05 NEGATIVE 0.06 - 0.59 AT RISK OF [place] > OR = 0.60 SUGGEST [place] 6-Yck-251985:10 Basic Metabolic Profile (BMP) Comments: 'TROP' Serial specimen #1, #2, #3, or #4: [address] [place] [address] Xcr[address]4185 [facility]. [place], [place], [address] GAP 13 (Normal) Range: 5-15 CO2 22.0 [...] 200 mg/dLsuggests DIABETES MELLITUS per A.D.A. criteria. 3-Nmr-209735:10 CBC W/Diff, Automated Comments: [facility] [address] [place], [address] Absolute Lymph 2.88 {X10_3/ul} (Normal) [...] Serial specimen #1, #2, #3, or #4: 1[facility] [address]jqeg[address] [place], [address] TSH 1.29 {uIU/mL} (Normal) Range: 0.358-3.74 :10 Troponin-I Comments: 'TROP' Serial specimen #1, #2, #3, or #4: 1[facility] [address]ars[address] [place], [place], [address] TROPONIN-I < 0.02 ng/mL (Normal) Comments: TROPONIN-I EXPECTED VALUES <0.05 NEGATIVE 0.06 - 0.59 AT RISK OF [place] > OR = 0.60 SUGGEST [place] :58 HgA1C , Office (44219) HgA1C , Office 7.6 % (Abnormal) Range: 4.6 - 7.1 :58 Blood Glucose , Office (58126) Blood Glucose , Office 159 (Normal) :50 CBC W/Diff, Automated Comments: [facility] [address] [place], [place], [address] Absolute Lymph 1.46 {X10_3/ul} (Normal) Range: 0.83-4.51 [...] 4.2-5.4 WBC 7.3 K/mm3 (Normal) Range: 4.4-11.0 30-Sgp-555326:50 CCP IgG Antibodies Comments: [facility] (refer to report for specific site)refer to report for address and phone number ANTI-CCP 287874 4 {units} (Normal) Range: 0-19 Comments: Negative <20 Weak positive 20 - 39 Moderate positive 40 - 59 Strong positive >59 14-Fes-103693:50 Comprehensive Metabolic Profil Comments: [facility] [address] [place], [place], [address] GAP 9 (Normal) Range: 5-15 CO2 26.0 [...] 126 mg/dLsuggests DIABETES MELLITUS per A.D.A. criteria. 85-Oee-706558:50 CRP Comments: [facility] [address] [place], [place], [address] C-REACTIVE PROT 8.89 mg/L (Abnormal) Range: 0.0-3.0 Comments: C-Reactive Protein (CRP) provides useful information for thediagnosis, therapy and monitoring of inflammatory processesand associated diseases. For the evaluation of Relative Riskfor Cardiovascular Dise ase, a High Sensitivity CRP (HSCRP)should be ordered. :50 Erythrocyte Sed Rate Comments: [facility] [address] [place], [place], [address] SED RATE 27 mm/h (Normal) Range: 0-30 80-Xkn-675583:50 Hep B Surface Antibodies Comments: [facility] (refer to report for specific site)refer to report for address and phone number Hep B Booker AB Non Reactive (Normal) Comments: Non Reactive: Inconsistent with immunity, less than 10 mIU/mL Reactive: Consistent with immunity, greater than 9.9 mIU/ mL 24-Jps-395209:50 Hepatitis B Surface Ag Comments: [facility] (refer to report for specific site)refer to report for address and phone number HB SURF AG Negative (Normal) Comments: Performed at: - [facility] [id number] Director: Christopher Sullivan PhD, Phone: [phone] at: - [facility] [address]Lmg Director: Loco Ivey MD, Phone: [phone] 97-Qku-366789:50 Hepatitis C Antibodies Comments: [facility] (refer to report for specific site)refer to report for address and phone number HEP C AB <0.1 {s/co_ratio} (Normal) Range: 0.0-0.9 Comments: Negative: < 0.8 Indeterminate: 0.8 - 0.9 Positive: > 0.9 The CDC recommends that a positive HCV antibody result be followed up with a HCV Nucleic Acid Amplification test (732919). :50 Rheumatoid Factor Comments: [facility] [address] [place], [place], [address] RHEUMATOID FAC < 10.0 {IU/mL} (Normal) :50 Uric Acid Comments: [facility] [address] [facility] [address] [facility] [place], [address] URIC 7.1 mg/dL (Abnormal) Range: 2.6-6.0 Comments: The drugs N-Acetylcysteine and Metamizole may falselydepress this assay. :03 Unable to Void SPRCS (Normal) Comments: PATIENT WAS FASTINGPERFORMED BY: [employer] [facility] [id number] Comments: The patient was not able to render a urine sample and has beeninstructed to return for a urine collection at their earliestconvenience. The urine testing that you have requested hasbeen deleted from th is report. When the patient returns andprovides a urine specimen, the urine testing will be performedand separately reported. :03 VITAMIN B-12 (CYANOCOBALAMIN) Comments: PATIENT WAS FASTINGPERFORMED BY: [employer]6370 [facility] [id number] (49218) Vitamin B12 264 pg/mL (Normal) Range: 211-946 :03 METABOLIC PANEL, COMPREHENSIVE Comments: PATIENT WAS FASTINGPERFORMED BY: [employer]70 [facility] [id number] (69046) ALT (SGPT) 7 [iU]/L (Normal) Range: 0-32 [...] mg/dL (Abnormal) Range: 65-99 :03 LIPID PANEL (98270) Comments: PATIENT WAS FASTINGPERFORMED BY: [employer] [place] [id number] VLDL Cholesterol Jyoti VLDLCH mg/dL (Normal) Range: 5-40 Comments: The calculation for the VLDL cholesterol is not valid whentriglyceride level is >400 mg/dL.Triglyceride result indicated is too high for an accurate LDLcholesterol estimation. HDL Cholesterol 26 mg/dL (Abnormal) Triglycerides 542 mg/dL (Abnormal) Range: 0-149 Cholesterol, Total 183 mg/dL (Normal) Range: 100-199 :03 CBC W/AUTO DIFF WBC (78598) Comments: PATIENT WAS FASTINGPERFORMED BY: [employer] [facility] [id number] Immature Grans (Abs) 0.0 {x10E3/uL} (Normal) Range: [...] (Normal) Range: 3.4-10.8 :48 HgA1C , Office (39089) HgA1C , Office 8.0 % (Abnormal) Range: 4.6 - 7.1 :48 Blood Glucose , Office (85045) Blood Glucose , Office 166 (Normal) :06 CALCIFEDIOL (13259) Comments: PATIENT NOT FASTINGPERFORMED BY: [facility]6370 [facility] [id number] Vitamin D, 25-Hydroxy 51.1 ng/mL (Normal) Range: 30.0-100.0 Comments: Vitamin D deficiency has been defined by the [place] ofMedicine and an Endocrine Society practice guideline as alevel of serum 25-OH vitamin D less than 20 ng/mL (1,2).The Endocrine Society went on to further define vitamin Dinsufficiency as a level between 21 and 29 ng/mL (2).1. IOM ([place] of Medicine). 2010. Dietary reference intakes for calcium and D. [place]: The National Academies Press.2. Bobo MF, Estrellita STOCKTON, Maddi CALIX, et al. Evaluation, treatment, and prevention of vitamin D deficiency: an Endocrine Society clinical practice guideline. JCEM. 2010; 96(7):6271-30. 0-Dak-624297:06 CBC, PLATELETS & AUT DIFF Comments: PATIENT NOT FASTINGPERFORMED BY: [facility] Aydtcx5111 [facility] [id number] (43847) Immature Grans (Abs) 0.0 {x10E3/uL} (Normal) Range: [...] (Normal) Range: 3.4-10.8 :36 HgA1C , Office (70433) HgA1C , Office 8.0 % (Abnormal) Range: 4.6 - 7.1 :36 Blood Glucose , Office (50958) Blood Glucose , Office 155 (Normal) :39 METABOLIC PANEL, COMPREHENSIVE Comments: PATIENT WAS FASTINGPERFORMED BY: [facility]CoSaint [facility]abas Medical CenterGhzvsd3248 [facility] [id number] (61098) ALT (SGPT) 6 [iU]/L (Normal) Range: 0-32 [...] mg/dL (Abnormal) Range: 65-99 :39 LIPID PANEL (92449) Comments: PATIENT WAS FASTINGPERFORMED BY: [facility] NetworksAdvanced [facility] Southern New MexicoYnvihb8183 [facility] [id number] LDL/HDL Ratio 3.6 {ratio_units} (Abnormal) Range: 0.0-3.2 Comments: LDL/HDL Ratio Men Women 1/2 Avg.Risk 1.0 1.5 Av g.Risk 3.6 3.2 2X Avg.Risk 6.2 5.0 3X Avg.Risk 8.0 6.1 LDL Cholesterol Calc 104 mg/dL (Abnormal) Range: 0-99 VLDL Cholesterol Jyoti 72 mg/dL (Abnormal) Range: 5-40 HDL Cholesterol 29 mg/dL (Abnormal) Triglycerides 359 mg/dL (Abnormal) Range: 0-149 Cholesterol, Total 205 mg/dL (Abnormal) Range: 100-199 36-Cbx-817516:49 Blood Glucose , Office (92283) Blood Glucose , Office 159 (Normal) 97-Opq-348512:49 HgA1C , Office (42752) HgA1C , Office 8.1 % (Abnormal) Range: 4.6 - 7.1 :03 VITAMIN B-12 (CYANOCOBALAMIN) Comments: PATIENT WAS FASTINGPERFORMED BY: Mir[facility] NetworksSaint Barnabas Medical CenterOrfqyc8949 [facility] [id number] (70399) Vitamin B12 319 pg/mL (Normal) Range: 211-946 62-Rfk-772790:03 LIPID PANEL (85016) Comments: PATIENT WAS FASTINGPERFORMED BY: Mir[facility] NetworksSaint Barnabas Medical CenterPumink8411 [facility] [id number] VLDL Cholesterol Jyoti VLDLCH mg/dL (Normal) Range: [...] Cholesterol, Total 192 mg/dL (Normal) Range: 100-199 65-Dov-551491:03 Vitamin D Hydroxy (62969) Comments: PATIENT WAS FASTINGPERFORMED BY: [facility]6370 [facility] [id number] Vitamin D, 25-Hydroxy 21.1 ng/mL (Abnormal) Range: 30.0-100.0 Comments: Vitamin D deficiency has been defined by the [place] ofSt. [facility] Hospitalcine and an Endocrine Society practice guideline as alevel of serum 25-OH vitamin D less than 20 ng/mL (1,2).The Endocrine Society went on to further define vitamin Dinsufficiency as a level between 21 and 29 ng/mL (2).1. IOM ([place] of Medicine). 2010. Dietary reference intakes for calcium and D. [place]: The National Academies Press.2. Bobo MF, Estrellita STOCKTON, Maddi CALIX, et al. Evaluation, treatment, and prevention of vitamin D deficiency: an Endocrine Society clinical practice guideline. JCEM. 2010; 96(7): 1911-30.; ADDENDA: non-emergent till apt next week 41-Zdr-321101:03 MICROALBUMIN: CREATININE RATIO Comments: PATIENT WAS FASTINGPERFORMED BY: [facility]6370 [facility] [id number] (53550) AND (65341) Microalb/Creat Ratio 26.1 {mg/g_creat} (Normal) Range: 0.0-30.0 Microalbumin, Urine 20.0 ug/mL (Normal) Creatinine, Urine 76.5 mg/dL (Normal) 56-Siu-121987:03 CBC W/AUTO DIFF WBC Comments: PATIENT WAS FASTINGPERFORMED BY: [facility]6370 [facility] [id number] Information: [id number] (54436) Immature Grans (Abs) 0.0 {x10E3/uL} (Normal) Range: [...] 3.77-5.28 WBC 8.1 {x10E3/uL} (Normal) Range: 3.4-10.8 15-Jmj-044179:03 METABOLIC PANEL, COMPREHENSIVE Comments: PATIENT WAS FASTINGPERFORMED BY: [facility]CoSaint Barnabas Medical CenterYrbfhd1441 [facility] [id number] (98532) ALT (SGPT) 7 [iU]/L (Normal) Range: 0-32 [...] (Abnormal) Range: 65-99 :53 Vitamin D Hydroxy (94779) Comments: PATIENT WAS FASTINGPERFORMED BY: [employer] [facility] [id number] Vitamin D, 25-Hydroxy 25.5 ng/mL (Abnormal) Range: 30.0-100.0 Comments: Vitamin D deficiency has been defined by the [place] ofMedicine and an Endocrine Society practice guideline as alevel of serum 25-OH vitamin D less than 20 ng/mL (1,2).The Endocrine Society went on to further define vitamin Dinsufficiency as a level between 21 and 29 ng/mL (2).1. IOM ([place] of Medicine). 2010. Dietary reference intakes for calcium and D. [place]: The National Academies Press.2. Bobo MF, Estrellita [place], Maddi CALIX, et al. Evaluation, treatment, and prevention of vitamin D deficiency: an Endocrine Society clinical practice guideline. JCEM. 2010; 96(7):1911-30. :53 LIPID PANEL (19450) Comments: PATIENT WAS FASTINGPERFORMED BY: [employer] LabCoDeemQrgvdx7229 [facility] [id number] LDL/HDL Ratio 3.7 {ratio_units} (Abnormal) Range: 0.0-3.2 [...] PANEL, COMPREHENSIVE Comments: PATIENT WAS FASTINGPERFORMED BY: Lab[facility] Hospital6370 [facility] [id number] (96358) ALT (SGPT) 5 [iU]/L (Normal) Range: 0-32 [...] mg/dL (Abnormal) Range: 65-99 :34 HGB A1C (97144) Comments: PATIENT WAS FASTINGPERFORMED BY: [employer] Zlpefd0898 [facility] [id number] Hemoglobin A1c 8.9 % (Abnormal) Range: 4.8-5.6 Comments: . Pre-diabetes: 5.7 - 6.4 Diabetes: >6.4 Glycemic control for adults with diabetes: <7.0 :11 VITAMIN B-12 (CYANOCOBALAMIN) Comments: B12lot:5200exp:06/26site:lt deltroute:EPIFANIOdose:chilo Camargo; PATIENT WAS FASTINGPERFORMED BY: [employer] Hbqlia8428 [facility] [id number] (66896) Vitamin B12 301 pg/mL (Normal) Range: 211-946 :11 Vitamin D Hydroxy (36399) Comments: PATIENT WAS FASTINGPERFORMED BY: [employer] Tvctdu7122 [facility] [id number] Vitamin D, 25-Hydroxy 20.3 ng/mL (Abnormal) Range: 30.0-100.0 Comments: Vitamin D deficiency has been defined by the [place] of[place]icine and an Endocrine Society practice guideline as alevel of serum 25-OH vitamin D less than 20 ng/mL (1,2).The Endocrine Society went on to further define vitamin Dinsufficiency as a level between 21 and 29 ng/mL (2).1. IOM ([place] of Medicine). 2010. Dietary reference intakes for calcium and D. [place]: The National Academies Press.2. Bobo MF, Estrellita NC, Maddi CALIX, et al. Evaluation, treatment, and prevention of vitamin D deficiency: an Endocrine Society clinical practice guideline. JCEM. 2010; 96(7):1911-30. :11 METABOLIC PANEL, Comments: PATIENT WAS FASTINGPERFORMED BY: [employer] Rwopch1737 [facility] [id number] Information: [id number] COMPREHENSIVE (51136) ALT (SGPT) 6 [iU]/L (Normal) Range: 0-32 [...] mg/dL (Abnormal) Range: 65-99 :11 LIPID PANEL (49679) Comments: PATIENT WAS FASTINGPERFORMED BY: [facility]6370 [facility] [id number]; will review on 07/04 LDL/HDL Ratio 4.0 [...] mg/dL (Abnormal) Range: 100-199 :11 HGB A1C (98052) Comments: PATIENT WAS FASTINGPERFORMED BY: [employer]6370 [facility] [id number] Hemoglobin A1c 8.5 % (Abnormal) Range: 4.8-5.6 Comments: . Pre-diabetes: 5.7 - 6.4 Diabetes: >6.4 Glycemic control for adults with diabetes: <7.0 :16 Vitamin D Hydroxy (94392) Comments: PATIENT WAS FASTINGPERFORMED BY: [employer]6370 [facility] [id number] Vitamin D, 25-Hydroxy 21.3 ng/mL (Abnormal) Range: 30.0-100.0 Comments: Vitamin D deficiency has been defined by the [place] of[place]icine and an Endocrine Society practice guideline as alevel of serum 25-OH vitamin D less than 20 ng/mL (1,2).The Endocrine Society went on to further define vitamin Dinsufficiency as a level between 21 and 29 ng/mL (2).1. IOM ([place] [employer]). 2010. Dietary reference intakes for calcium and D. [place]: The National Academies Press.2. Bobo MF, Estrellita NC, Maddi CALIX, et al. Evaluation, treatment, and prevention of vitamin D deficiency: an Endocrine Society clinical practice guideline. JCEM. 2010; 96(7):1911-30. :16 VITAMIN B-12 (CYANOCOBALAMIN) Comments: PATIENT WAS FASTINGPERFORMED BY: [employer]6370 [facility] [id number] (66080) Vitamin B12 283 pg/mL (Normal) Range: 211-946 :16 CBC W/AUTO DIFF WBC Comments: PATIENT WAS FASTINGPERFORMED BY: [facility]6370 [facility] [id number] Information: [id number] (74477) Immature Grans (Abs) 0.0 {x10E3/uL} (Normal) Range: [...] {x10E3/uL} (Normal) Range: 3.4-10.8 :16 LIPID PANEL (50087) Comments: PATIENT WAS FASTINGPERFORMED BY: [facility]6370 [facility] [id number] VLDL Cholesterol Jyoti VLDLCH mg/dL (Normal) Range: [...] Cholesterol, Total 168 mg/dL (Normal) Range: 100-199 85-Ueb-351644:49 HGB A1C (13215) Comments: PATIENT NOT FASTINGPERFORMED BY: [employer] Jxtrui6195 [facility] [id number] Information: [id number] Hemoglobin A1c 8.1 % (Abnormal) Range: 4.8-5.6 Comments: . Pre-diabetes: 5.7 - 6.4 Diabetes: >6.4 Glycemic control for adults with diabetes: <7.0 29-Ytx-19786:30 VITAMIN B-12 (CYANOCOBALAMIN) Comments: PATIENT WAS FASTINGPERFORMED BY: [employer] Otsdrs6723 [facility] [id number] (97898) Vitamin B12 325 pg/mL (Normal) Range: 211-946 55-Qvr-31592:30 CBC (AUTO) (21101) Comments: PATIENT WAS FASTINGPERFORMED BY: [facility] NetworksSaint Barnabas Medical CenterDaqzns6954 [facility] [id number] Platelets 309 {x10E3/uL} (Normal) Range: 150-379 RDW 14.8 % (Normal) Range: 12.3-15.4 MCHC 31.1 g/dL (Abnormal) Range: 31.5-35.7 MCH 25.6 pg (Abnormal) Range: 26.6-33.0 MCV 82 fL (Normal) Range: 79-97 Hematocrit 39.2 % (Normal) Range: 34.0-46.6 Hemoglobin 12.2 g/dL (Normal) Range: 11.1-15.9 RBC 4.77 {x10E6/uL} (Normal) Range: 3.77-5.28 WBC 10.9 {x10E3/uL} (Abnormal) Range: 3.4-10.8 :30 Vitamin D Hydroxy (61387) Comments: PATIENT WAS FASTINGPERFORMED BY: [employer] Taygwl1802 [facility] [id number] Vitamin D, 25-Hydroxy 19.9 ng/mL (Abnormal) Range: 30.0-100.0 Comments: Vitamin D deficiency has been defined by the [place] of[place]icine and an Endocrine Society practice guideline as alevel of serum 25-OH vitamin D less than 20 ng/mL (1,2).The Endocrine Society went on to further define vitamin Dinsufficiency as a level between 21 and 29 ng/mL (2).1. IOM ([place] [employer] [place]). 2010. Dietary reference intakes for calcium and D. [place]: The National Academies Press.2. Bobo MF, Estrellita STOCKTON, Maddi CALIX, et al. Evaluation, treatment, and prevention of vitamin D deficiency: an Endocrine Society clinical practice guideline. JCEM. 2010; 96(7): 1911-30.; ADDENDA: non-emergent till tomorrows apt :30 LIPID PANEL (94847) Comments: PATIENT WAS FASTINGPERFORMED BY: [employer]70 [facility] [id number] VLDL Cholesterol Jyoti VLDLCH mg/dL (Normal) Range: [...] CREATININE RATIO Comments: PATIENT WAS FASTINGPERFORMED BY: [employer] Knmxgo3898 [facility] [id number] (80366) AND (27084) Microalb/Creat Ratio 190.8 {mg/g_creat} (Abnormal) Range: 0.0-30.0 Microalbumin, Urine 66.6 ug/mL (Abnormal) Range: 0.0-17.0 Creatinine, Urine 34.9 mg/dL (Normal) Range: 15.0-278.0 :30 METABOLIC PANEL, Comments: PATIENT WAS FASTINGPERFORMED BY: [employer]70 [facility]Ge[facility] [id number] Information: [id number] COMPREHENSIVE (60196) ALT (SGPT) 6 [iU]/L (Normal) Range: 0-32 [...] (Abnormal) Range: 65-99 :59 Vitamin D Hydroxy (45832) Comments: PATIENT NOT FASTINGPERFORMED BY: [employer]70 [facility]erciseNov[facility] [id number]; apt. 9-11-15 Vitamin D, 25-Hydroxy 21.4 ng/mL (Abnormal) Range: 30.0-100.0 Comments: Vitamin D deficiency has been defined by the [place] of[place]icine and an Endocrine Society practice guideline as alevel of serum 25-OH vitamin D less than 20 ng/mL (1,2).The Endocrine Society went on to further define vitamin Dinsufficiency as a level between 21 and 29 ng/mL (2).1. IOM ([place] of [place]). 2010. Dietary reference intakes for calcium and D. [place]: The National Academvivio Press.2. Bobo MF, Estrellita NC, Maddi CALIX, et al. Evaluation, treatment, and prevention of vitamin D deficiency: an Endocrine Society clinical practice guideline. JCEM. 2010; 96(7):1911-30. :59 LIPID PANEL (01979) Comments: PATIENT NOT FASTINGPERFORMED BY: [employer] Eghudy6656 [facility] [id number] VLDL Cholesterol Jyoit VLDLCH mg/dL (Normal) Range: 5-40 Comments: The [...] B-12 (CYANOCOBALAMIN) Comments: PATIENT NOT FASTINGPERFORMED BY: [employer] Rjiyek3689 [facility] CenterCureVacNovant Health Ballantyne [facility] Center [id number] (21642) Vitamin B12 500 pg/mL (Normal) Range: 211-946 :59 CBC W/AUTO DIFF WBC Comments: PATIENT NOT FASTINGPERFORMED BY: [employer] Skswcu7351 [facility] [id number] Information: [id number] (88949) Immature Grans (Abs) 0.0 {x10E3/uL} (Normal) Range: [...] COMPREHENSIVE Comments: PATIENT NOT FASTINGPERFORMED BY: LabCoSaint Barnabas Medical CenterJuozcs8497 [facility] [id number] (80834) ALT (SGPT) 6 [iU]/L (Normal) Range: 0-32 [...] Range: 65-99 :38 Blood Glucose , Office (36290) Blood Glucose , Office 198 (Normal) :38 HgA1C , Office (20279) HgA1C , Office 9.1 % (Abnormal) Range: 4.6 - 7.1 :40 Allergens, Zone 8 Comments: Test(s) 088796-V007-RpN Cockroach, Mexican; 110874-C230-PsY [place], White; 402361-B175-CmO Sweet Gumwere developed and had performance characteristicsdetermined by [employer]. These tests have not been c leared orapproved by the U.S. Food and Drug Administration. The FDAhas determined that such clearance or approval is notnecessary. These tests are used for clinical purposes.These should not be regarded as investigational or forresearch.Test performed at:[facility] [address]azs[address]. [place], [place] [address] ; handled by jennifer VANG COMMENT Comment [...] NETTLE <0.10 kU/L (Normal) Comments: Performed at: - Lab[address] [id number] Director: Loco Ivey MD, Phone: [phone] SHEEP SORREL <0.10 kU/L (Normal) PIGWEED, ROUGH [...] kU/L (Normal) D PTERONYSSINUS <0.10 kU/L (Normal) 70-Bnw-18148:40 Immunoglobulin E Comments: Test performed at:[facility] Bcuzvyxmfe4800 [facility]. [place], [place] [id number] IMMUNO E 53 {IU/mL} (Normal) Range: 0-100 Comments: Performed at: [address] [id number] Director: Christopher Sullivan PhD, Phone: [phone]; ADDENDA: handled by jennifer 73-Tud-310543:26 HgA1C , Office (79788) HgA1C , Office 9.6 % (Abnormal) Range: 4.6 - 7.1 1-Cpx-840130:31 BNP,B-Type NATRIURETIC PEPTIDE Comments: Test performed at:[facility] Bxwbvzhwmf0622 [facility] [place] [address] B-TYPE ANDREW PEP 58.8 pg/mL (Normal) Range: 0-100 88-Eem-194046:04 IRON BINDING CAPACITY (TIBC) Comments: PERFORMED BY: [facility] [place] [address] [id number] (89040) Iron Saturation 11 % (Abnormal) Range: 15-55 Iron, Serum 47 ug/dL (Normal) Range: 35-155 UIBC 362 ug/dL (Normal) Range: 150-375 Iron Bind.Cap.(TIBC) 409 ug/dL (Normal) Range: 250-450 50-Byf-966437:04 FERRITIN (33014) Comments: PERFORMED BY: [facility] [place] [address] [id number] Ferritin, Serum 32 ng/mL (Normal) Range: 15-150 24-Niv-450180:04 VITAMIN B-12 (CYANOCOBALAMIN) Comments: PERFORMED BY: [facility] [place] [address] [id number] (40791) Vitamin B12 304 pg/mL (Normal) Range: 211-946 78-Fhd-669751:04 Vitamin D Hydroxy (80099) Comments: PERFORMED BY: [facility]UNC [facility] [id number] Vitamin D, 25-Hydroxy 17.5 ng/mL (Abnormal) Range: 30.0-100.0 Comments: Vitamin D deficiency has been defined by the [place] ofSt[facility] Hospitalcine and an Endocrine Society practice guideline as alevel of serum 25-OH vitamin D less than 20 ng/mL (1,2).The Endocrine Society went on to further define vitamin Dinsufficiency as a level between 21 and 29 ng/mL (2).1. IOM ([place] of [place]). 2010. Dietary reference intakes for calcium and D. [place]: The National Academies Press.2. Bobo MF, Estrellita STOCKTON, Maddi CALIX, et al. Evaluation, treatment, and prevention of vitamin D deficiency: an Endocrine Society clinical practice guideline. JCEM. 2010; 96(7):1911-30. 48-Vyh-595104:04 LIPID PANEL (72815) Comments: PERFORMED BY: [facility]oNovaNovant Health Ballant[facility] [id number] VLDL Cholesterol Jyoti VLDLCH mg/dL (Normal) Range: [...] Cholesterol, Total 166 mg/dL (Normal) Range: 100-199 64-Xyf-770186:04 CBC W/AUTO DIFF WBC (17133) Comments: PERFORMED BY: [employer] [facility] [id number] Immature Grans (Abs) 0.0 {x10E3/uL} (Normal) Range: [...] 3.77-5.28 WBC 7.3 {x10E3/uL} (Normal) Range: 3.4-10.8 99-Eax-700357:04 METABOLIC PANEL, COMPREHENSIVE Comments: PERFORMED BY: LabCoSaint Barnabas Medical CenterWtmlpf9359 [facility] [id number] (86068) ALT (SGPT) 5 [iU]/L (Normal) Range: 0-32 [...] Glucose, Serum 279 mg/dL (Abnormal) Range: 65-99 02-Mju-123175:18 HgA1C , Office (48522) HgA1C , Office 8.3 % (Abnormal) Range: 4.6 - 7.1 67-Uvm-504088:12 Rapid Flu (53720 x 2) Influenza A Ag negative (Normal) 35-Mxx-855923:43 BNTP (04078) Comments: PATIENT NOT FASTINGPERFORMED BY: LabCoSaint Barnabas Medical CenterPmunet5926 [facility] [id number] Information: [id number], [id number] B-Type Natriuretic Peptide 67.8 pg/mL (Normal) Range: 0.0-100.0 0-Aoj-803664:12 CBCD ALC 1.70 {X10_3/ul} (Normal) Range: 0.83-4.51 [...] 126 mg/dLsuggests DIABETES MELLITUS per A.D.A. criteria. 18-Bps-073541:14 Blood Glucose , Office (95114) Blood Glucose , Office 112 (Normal) :14 HgA1C , Office (28780) HgA1C , Office 7.3 % (Abnormal) Range: 4.6 - 7.1 13-Dic-725834:45 WESTON Negative (Normal) Comments: Performed at: [facility] LabCo[address] [id number] Director: Nick Cali PhD, Phone: [phone] 27-Rip-116668:45 CBCD ALC 1.65 {X10_3/ul} (Normal) Range: 0.83-4.51 [...] positive 40 - 59Strong positive >59Performed at: [facility] LabCo[address] [id number] Director: Loco Ivey MD, Phone: [phone] 54-Hcf-993230:45 CMP GAP 4 (Abnormal) Range: 5-15 CO2 [...] a High Sensitivity CRP (HSCRP)should be ordered. 17-Bfm-999333:45 RF < 10.0 {IU/mL} (Normal) :45 SED tSEDRATE 12 mm/h (Normal) Range: 0-30 :45 VITD 30.7 mg/mL (Normal) Comments: Vitamin D 25(OH) Status RangeDeficiency <20 ng/mL (50nmol/L)Insuffciency 20 - 30 ng/mL (50 - 75 nmol/L)Sufficiency 30 - 100 ng/mL (75 - 250 nmol/L)Toxicity >100 ng/mL (>250 nmol/L) :46 Vitamin D Hydroxy (77900) Comments: PATIENT WAS FASTINGPERFORMED BY: [facility]6370 [facility] [id number] Vitamin D, 25-Hydroxy 22.7 ng/mL (Abnormal) Range: 30.0-100.0 Comments: Vitamin D deficiency has been defined by the [place] of[place]icine and an Endocrine Society practice guideline as alevel of serum 25-OH vitamin D less than 20 ng/mL (1,2).The Endocrine Society went on to further define vitamin Dinsufficiency as a level between 21 and 29 ng/mL (2).1. IOM ([place] of [place]). 2010. Dietary reference intakes for calcium and D. [place]: The National Academies Press.2. Bobo MF, Estrellita STOCKTON, Maddi CALIX, et al. Evaluation, treatment, and prevention of vitamin D deficiency: an Endocrine Society clinical practice guideline. JCEM. 2010; 96(7):1911-30. :46 MICROALBUMIN: CREATININE RATIO Comments: PATIENT WAS FASTINGPERFORMED BY: Mirage NetworksSaint Barnabas Medical CenterMeaypp3763 [facility] [id number] (86878) AND (84471) Microalb/Creat Ratio 37.1 {mg/g_creat} (Abnormal) Range: 0.0-30.0 Microalbumin, Urine 29.9 ug/mL (Abnormal) Range: 0.0-17.0 Creatinine, Urine 80.5 mg/dL (Normal) Range: 15.0-278.0 :46 METABOLIC PANEL, COMPREHENSIVE Comments: PATIENT WAS FASTINGPERFORMED BY: [facility]ixBe[facility] Hospital6370 [facility] [id number] (32849) ALT (SGPT) 7 [iU]/L (Normal) Range: 0-32 [...] mg/dL (Abnormal) Range: 65-99 :46 LIPID PANEL (83545) Comments: PATIENT WAS FASTINGPERFORMED BY: [employer]70 [facility]erciseNov[facility] [id number] LDL/HDL Ratio 2.1 {ratio_units} (Normal) Range: 0.0-3.2 [...] AUT DIFF Comments: PATIENT WAS FASTINGPERFORMED BY: OptoNovaNovant Health Ballantyne [facility] Center [id number] Information: [id number] (09631) Hematology Comments: Note: (Normal) Comments: Verified by [...] 3.77-5.28 WBC 10.8 {x10E3/uL} (Normal) Range: 3.4-10.8 08-Bqv-82722:46 VITAMIN B-12 (CYANOCOBALAMIN) Comments: PATIENT WAS FASTINGPERFORMED BY: LabCoSaint Barnabas Medical CenterWvkssu9360 [facility]Barn[facility] [id number] (66677) Vitamin B12 254 pg/mL (Normal) Range: 211-946 7-Uvb-782186:10 HgA1C , Office (41522) HgA1C , Office 6.8 % (Normal) Range: 4.6 - 7.1 0-Uoc-712292:10 Blood Glucose , Office (34395) Blood Glucose , Office 146 (Normal) Comments: non-fasting :36 LIPID PANEL (08266) Comments: PATIENT WAS FASTINGPERFORMED BY: Mirage NetworksSaint Barnabas Medical CenterZocxdq6581 [facility] [id number] VLDL Cholesterol Jyoti VLDLCH mg/dL (Normal) Range: [...] MANUAL DIFF Comments: PATIENT WAS FASTINGPERFORMED BY: [employer] Cctonn2502 [facility] [id number] Information: [id number] (50746) Immature Grans (Abs) 0.0 {x10E3/uL} (Normal) Range: [...] COMPREHENSIVE Comments: PATIENT WAS FASTINGPERFORMED BY: LabCoSaint Barnabas Medical CenterXwebng8472 [facility] [id number] (04699) ALT (SGPT) 6 [iU]/L (Normal) Range: 0-32 [...] (Abnormal) Range: 65-99 :36 Vitamin D Hydroxy (96462) Comments: PATIENT WAS FASTINGPERFORMED BY: [employer] Mnxwbq4163 Ryan RoadDublin [place] [id number] Vitamin D, 25-Hydroxy 17.5 ng/mL (Abnormal) Range: 30.0-100.0 Comments: Vitamin D deficiency has been defined by the [place] of[place]icine and an Endocrine Society practice guideline as alevel of serum 25-OH vitamin D less than 20 ng/mL (1,2).The Endocrine Society went on to further define vitamin Dinsufficiency as a level between 21 and 29 ng/mL (2).1. IOM ([place] of [employer]). 2010. Dietary reference intakes for calcium and D. [place]: The National Academies Press.2. Bobo MF, Estrellita STOCKTON, Maddi CALIX, et al. Evaluation, treatment, and prevention of vitamin D deficiency: an Endocrine Society clinical practice guideline. JCEM. 2010; 96(7):1911-30. :36 VITAMIN B-12 (CYANOCOBALAMIN) Comments: PATIENT WAS FASTINGPERFORMED BY: [employer] [employer]p Yzguae3621 Ryan RoadDublin [place] [id number] (06924) Vitamin B12 264 pg/mL (Normal) Range: 211-946 :36 IRON (55413) Comments: PATIENT WAS FASTINGPERFORMED BY: [facility] Qqqbvp5632 Ryan RoadDublin [place] [id number] Iron, Serum 52 ug/dL (Normal) Range: 35-155 99-Kor-999088:54 HgA1C , Office (21773) HgA1C , Office 7.1 % (Normal) Range: 4.6 - 7.1 :09 VITAMIN B-12 (CYANOCOBALAMIN) Comments: PATIENT WAS FASTINGPERFORMED BY: [facility] Dbieqc6303 Ryan RoadDublin [place] [id number] (90150) Vitamin B12 704 pg/mL (Normal) Range: 211-946 :09 Vitamin D Hydroxy (00653) Comments: PATIENT WAS FASTINGPERFORMED BY: [employer] Bgqvbk1115 [facility] [id number] Vitamin D, 25-Hydroxy 21.8 ng/mL (Abnormal) Range: 30.0-100.0 Comments: Vitamin D deficiency has been defined by the [place] ofSt[facility] Hospitalcine and an Endocrine Society practice guideline as alevel of serum 25-OH vitamin D less than 20 ng/mL (1,2).The Endocrine Society went on to further define vitamin Dinsufficiency as a level between 21 and 29 ng/mL (2).1. IOM ([place] of [place]). 2010. Dietary reference intakes for calcium and D. [place]: The National Academies Press.2. Bobo MF, Estrellita STOCKTON, Maddi CALIX, et al. Evaluation, treatment, and prevention of vitamin D deficiency: an Endocrine Society clinical practice guideline. JCEM. 2010; 96(7):1911-30. :09 MICROALBUMIN: CREATININE RATIO Comments: PATIENT WAS FASTINGPERFORMED BY: [employer] Htwnej4300 [facility] [id number] (91891) AND (07623) Microalb/Creat Ratio 24.2 {mg/g_creat} (Normal) Range: 0.0-30.0 Microalbumin, Urine 37.1 ug/mL (Abnormal) Range: 0.0-17.0 Creatinine, Urine 153.6 mg/dL (Normal) Range: 15.0-278.0 :09 METABOLIC PANEL, COMPREHENSIVE Comments: PATIENT WAS FASTINGPERFORMED BY: [employer] Dbzuth3728 [facility] [id number] (26397) ALT (SGPT) 9 [iU]/L (Normal) Range: 0-32 [...] Glucose, Serum 150 mg/dL (Abnormal) Range: 65-99 66-Fdt-32274:09 CBC WITH MANUAL DIFF Comments: PATIENT WAS FASTINGPERFORMED BY: LabCoSaint Barnabas Medical CenterIiqfyz7970 [facility] [id number] Information: [id number] (73628) Immature Grans (Abs) 0.0 {x10E3/uL} (Normal) Range: [...] {x10E3/uL} (Normal) Range: 3.4-10.8 :09 LIPID PANEL (88420) Comments: PATIENT WAS FASTINGPERFORMED BY: LabCoSaint Barnabas Medical CenterNtmevo1699 [facility] [id number] VLDL Cholesterol Jyoti VLDLCH mg/dL (Normal) Range: [...] (Normal) Range: 100-199 :23 HgA1C , Office (26474) HgA1C , Office 7.2 % (Abnormal) Range: [...] Babcock M.D.November 02, 2012 at 3:41:31 PM [id number] Signed GP/GP If you are the referring physician and would like to consult with theradiologist who provided this interpretation, please contact Imani Hayes at [phone]. If this radiologist is unavailable, youwill be directed to another radiologist to assist. If you are a patient with a question regarding this report, pleasecontactyour referring lisa gonzalez directly. Professional Interpretation Provided By: [employer], Phone , These documents contain legally protected [...] destructionofthese documents. Dictated on 11/02/12 1541 by Emma Babcock MDranscribed on 09/23/13 1543 by ITS IMPORTSign by John Babcock MD on 11/02/12 1544 Sign by: John Babcock MD 53-Aum-181268:33 MICROALBUMIN: CREATININE RATIO Comments: PATIENT WAS FASTINGPERFORMED BY: CloudGenixCoSaint Barnabas Medical CenterYoldps1642 [facility] [id number] (34436) AND (92318) Microalb/Creat Ratio 31.2 {mg/g_creat} (Abnormal) Range: 0.0-30.0 Microalbumin, Urine 44.7 ug/mL (Abnormal) Range: 0.0-17.0 Creatinine, Urine 143.3 mg/dL (Normal) Range: 15.0-278.0 :33 CBC WITH MANUAL DIFF Comments: PATIENT WAS FASTINGPERFORMED BY: [facility]Co Wwqaez4774 [facility] [id number] Information: [id number] (93995) Immature Grans (Abs) 0.0 {x10E3/uL} (Normal) Range: [...] 3.77-5.28 WBC 6.9 {x10E3/uL} (Normal) Range: 3.4-10.8 27-Oij-546060:33 METABOLIC PANEL, COMPREHENSIVE Comments: PATIENT WAS FASTINGPERFORMED BY: LabCoSaint Barnabas Medical CenterOokoxj9462 [facility] [id number] (56163) ALT (SGPT) 10 [iU]/L (Normal) Range: 0-32 [...] Glucose, Serum 158 mg/dL (Abnormal) Range: 65-99 55-Eqi-755236:33 VITAMIN B-12 (CYANOCOBALAMIN) Comments: PATIENT WAS FASTINGPERFORMED BY: [address] [id number] (72888) Vitamin B12 >1999 pg/mL (Abnormal) Range: 211-946 64-Kvk-646129:33 IRON BINDING CAPACITY (TIBC) Comments: PATIENT WAS FASTINGPERFORMED BY: [address] [id number] (02441) Iron Saturation 16 % (Normal) Range: 15-55 Iron, Serum 59 ug/dL (Normal) Range: 35-155 UIBC 315 ug/dL (Normal) Range: 150-375 Iron Bind.Cap.(TIBC) 374 ug/dL (Normal) Range: 250-450 31-Wif-809997:33 FERRITIN (31391) Comments: PATIENT WAS FASTINGPERFORMED BY: [place] 5588870 [facility] [id number] Ferritin, Serum 29 ng/mL (Normal) Range: 15-150 73-Fqc-382267:33 HEPATIC FUNCTION PANEL Comments: PATIENT WAS FASTINGPERFORMED BY: [place] 5588870 [facility] [id number] (51108) Bilirubin, Direct 0.12 mg/dL (Normal) Range: 0.00-0.40 61-Xkb-540792:33 LIPID PANEL (94332) Comments: PATIENT WAS FASTINGPERFORMED BY: [address] [id number] VLDL Cholesterol Jyoti VLDLCH mg/dL (Normal) Range: [...] Cholesterol, Total 174 mg/dL (Normal) Range: 100-199 72-Vjs-080058:33 Vitamin D Hydroxy (25310) Comments: PATIENT WAS FASTINGPERFORMED BY: LabCoSaint Barnabas Medical CenterTnetrt3804 [facility] [id number] Vitamin D, 25-Hydroxy 21.3 ng/mL (Abnormal) Range: 30.0-100.0 Comments: Vitamin D deficiency has been defined by the [place] of[facility]cine and an Endocrine Society practice guideline as alevel of serum 25-OH vitamin D less than 20 ng/mL (1,2).The Endocrine Society went on to further define vitamin Dinsufficiency as a level between 21 and 29 ng/mL (2).1. IOM ([place] of Medicine). 2010. Dietary reference intakes for calcium and D. [place]: The National Academies Press.2. Bobo MF, Estrellita STOCKTON, Maddi CALIX, et al. Evaluation, treatment, and prevention of vitamin D deficiency: an Endocrine Society clinical practice guideline. JCEM. 2010; 96(7):1911-30. 21-Dje-098381:22 HgA1C , Office (43919) HgA1C , Office 6.8 % (Normal) Range: [...] Babcock M.D.August 18, 2012 at 3:19:26 PM [id number] Signed GP/GP If you are the referring physician and would like to consult with theradiologist who provided this interpretation, please contact Imani Hayes at [phone]. If this radiologist is unavailable, youwill be directed to another radiologist to assist. If you are a patient with a question regarding this report, pleasecontactyour referring physician directly. Professional Interpretation Provided By: [employer], Phone , These documents contain legally protected [...] 08/18/12 1522 Sign by: John Babcock MD 9-Hrf-617818:40 BILAT SCRN DIGITAL & CAD Radiology Report [...] Signed:John Babcock M.D.August 18 at 1:37:33 PM [id number] Signed GP/GP If you are the referring physician and would like to consult with theradiologist who provided this interpretation, please contact Sunil louis M.D. at [phone]. If this radiologist is unavailable, youwill be directed to another radiologist to assist. If you are a patient with a question regarding this report, pleasecontactyour referr ing physician directly. Professional Interpretation Provided By: [employer], Phone , These documents contain legally protected [...] 08/18/12 1400 Sign by: John Babcock MD 9-Pzp-285063:36 VERT FX ASSESS/LAT BONE DEN(H) Radiology Report [...] Babcock M.D.August 20, 2012 at 2:14:56 PM [phone] Signed GP/GP If you are the referring physician and would like to consult with [facility] who provided this interpretation, please contact Imani Hayes at [phone]. If this radiologist is unavailable, youwill be directed to another radiologist to assist. If you are a clarice ent with a question regarding this report, pleasecontactyour referring physician directly. Professional Interpretation Provided By: [employer], Phone , These documents con tain legally [...] documents. Dictated on 08/20/12 141 by Shayna ROSAS,WildriRafatranscribed on 08/20/121415 by ITS IMPORTSign by Shayna ROSAS,John on 08/20/121416 Sign by: John Babcock MD 34-Kdl-38300:10 LIPID PANEL (83612) Comments: PATIENT WAS FASTINGPERFORMED BY: [facility] [id number] VLDL Cholesterol Jyoti VLDLCH mg/dL (Normal) Range: [...] Cholesterol, Total 183 mg/dL (Normal) Range: 100-199 83-Fuj-50495:10 METABOLIC PANEL, COMPREHENSIVE Comments: PATIENT WAS FASTINGPERFORMED BY: SK biopharmaceuticals6370 [facility]erciseNov[facility] [id number] (18192) ALT (SGPT) 5 [iU]/L (Normal) Range: 0-32 [...] Glucose, Serum 133 mg/dL (Abnormal) Range: 65-99 21-Aod-17826:10 IRON BINDING CAPACITY (TIBC) Comments: PATIENT WAS FASTINGPERFORMED BY: AmberWave70 [facility]erciseNov[facility] [id number] (73372) Iron Saturation 15 % (Normal) Range: 15-55 Iron, Serum 53 ug/dL (Normal) Range: 35-155 UIBC 308 ug/dL (Normal) Range: 150-375 Iron Bind.Cap.(TIBC) 361 ug/dL (Normal) Range: 250-450 :10 FERRITIN (20529) Comments: PATIENT WAS FASTINGPERFORMED BY: AmberWave70 [facility]erciseNov[facility] [id number] Ferritin, Serum 25 ng/mL (Normal) Range: 15-150 47-Efg-82483:10 VITAMIN B-12 (CYANOCOBALAMIN) Comments: PATIENT WAS FASTINGPERFORMED BY: Mirage NetworksSaint Barnabas Medical CenterWhgigu6190 [facility] [id number] (50691) Vitamin B12 258 pg/mL (Normal) Range: 211-946 41-Fmq-46132:10 CBC WITH MANUAL DIFF Comments: PATIENT WAS FASTINGPERFORMED BY: CloudGenixCoSaint Barnabas Medical CenterTnkogf7625 [facility] [id number] Information: ADD [id number] AND DRAW FEE [id number] [phone] (38185) Immature Grans (Abs) 0.0 {x10E3/uL} (Normal) Range: [...] (Normal) Range: 4.0-10.5 :10 Vitamin D Hydroxy (41304) Comments: PATIENT WAS FASTINGPERFORMED BY: [employer] Khcrhw0347 Ryan RoadDublin [place] [id number] Vitamin D, 25-Hydroxy 20.4 ng/mL (Abnormal) Range: 30.0-100.0 Comments: Vitamin D deficiency has been defined by the [place] ofMedicine and an Endocrine Society practice guideline as alevel of serum 25-OH vitamin D less than 20 ng/mL (1,2).The Endocrine Society went on to further define vitamin Dinsufficiency as a level between 21 and 29 ng/mL (2).1. IOM ([place] of Medicine). 2010. Dietary reference intakes for calcium and D. [place]: The National Academies Press.2. Bobo MF, Estrellita NC, Maddi CALIX, et al. Evaluation, treatment, and prevention of vitamin D deficiency: an Endocrine Society clinical practice guideline. JCEM. 2010; 96(7):1911-30. 7-Fgn-468459:08 IRON (36579) Comments: PATIENT WAS FASTINGPERFORMED BY: [employer] Iuzren9152 Ryan RoadDublin [place] [id number] Iron, Serum 58 ug/dL (Normal) Range: 35-155 2-Htd-197310:08 FERRITIN (11368) Comments: PATIENT WAS FASTINGPERFORMED BY: [employer] Umdeen4210 Ryan RoadDublin [place] [id number] Ferritin, Serum 25 ng/mL (Normal) Range: 13-150 9-Gyz-233287:08 VITAMIN B-12 (CYANOCOBALAMIN) Comments: PATIENT WAS FASTINGPERFORMED BY: [employer] Uaqqxh9545 Ryan RoadDublin [place] [id number] (10168) Vitamin B12 390 pg/mL (Normal) Range: 211-946 1-Vaq-323311:08 Vitamin D Hydroxy (01861) Comments: PATIENT WAS FASTINGPERFORMED BY: [facility] Dcfjwz1244 Ryan RoadDublin [place] [id number] Vitamin D, 25-Hydroxy 25.3 ng/mL (Abnormal) Range: 30.0-100.0 Comments: Vitamin D deficiency has been defined by the [place] of[place]icine and an Endocrine Society practice guideline as alevel of serum 25-OH vitamin D less than 20 ng/mL (1,2).The Endocrine Society went on to further define vitamin Dinsufficiency as a level between 21 and 29 ng/mL (2).1. IOM ([place] of Medicine). 2010. Dietary reference intakes for calcium and D. [place]: The National Academies Press.2. Bobo MF, Estrellita STOCKTON, Maddi CALIX, et al. Evaluation, treatment, and prevention of vitamin D deficiency: an Endocrine Society clinical practice guideline. JCEM. 2010; 96(7):1911-30. 6-Abw-123958:08 METABOLIC PANEL, COMPREHENSIVE Comments: PATIENT WAS FASTINGPERFORMED BY: LabCoSaint Barnabas Medical CenterIxrcdt3168 [facility] [id number] (42004) ALT (SGPT) 6 [iU]/L (Normal) Range: 0-32 [...] Glucose, Serum 124 mg/dL (Abnormal) Range: 65-99 8-Lrq-230157:08 CBC WITH MANUAL DIFF Comments: PATIENT WAS FASTINGPERFORMED BY: LabBeaumont Hospital6370 [facility] [id number] Information: [id number] (76354) Immature Grans (Abs) 0.0 {x10E3/uL} (Normal) Range: [...] 3.77-5.28 WBC 8.2 {x10E3/uL} (Normal) Range: 4.0-10.5 :08 LIPID PANEL (68299) Comments: PATIENT WAS FASTINGPERFORMED BY: [facility] Sfkjsq5981 [address] [facility] [id number] VLDL Cholesterol Jyoti VLDLCH mg/dL (Normal) Range: [...] (Normal) Range: 100-199 :56 HgA1C , Office (02803) HgA1C , Office 7.4 % (Abnormal) Range: 4.6 - 7.1 :56 Blood Glucose , Office (20737) Blood Glucose , Office 142 (Normal) :40 CBCMD RBCM NORM C+C {NORMAL} (Normal) EOS [...] 4.2-5.4 WBC 11.2 K/mm3 (Abnormal) Range: 4.4-11.0 39-Aeq-140907:40 CMP GAP 7 (Normal) Range: 5-15 CL [...] mg/dL suggests DIABETES MELLITUS per A.D.A. criteria. 49-Dpt-80758:04 CHEST WITH CONTRAST Radiology Report See Note [...] Babcock M.D.November 07, 2011 at 1:33:21 PM [phone] Signed GP/GP If you ar e the referring physician and would like to consult with theradiologist who provided this interpretation, please contact Imani Hayes at [phone]. If this radiologist is unavailable, youw ill [...] 11/07/11 1340 Sign by: John Babcock MD 68-Zfz-630736:41 Pathology Report Comments: PERFORMED BY: [facility] Xtfl28163 [facility] [id number] BY: LX [facility] Qdvapex35336 [facility] [id number] Information: [id number] See MATER Comments: Material submitted: .SHAVE BIOPSY [...] ARE SUBMITTEDIN TWO CASSETTES, A1 AND A2.COR/TMZCPT .636916 02-Hpf-971087:06 CBC WITH MANUAL DIFF Comments: PATIENT NOT FASTINGPERFORMED BY: CB [facility] Tyinvx5186 RyanBarnes-[facility] [id number] Information: [id number] (92494) Immature Grans (Abs) 0.0 {x10E3/uL} (Normal) Range: [...] 3.77-5.28 WBC 7.9 {x10E3/uL} (Normal) Range: 4.0-10.5 90-Hta-889524:06 LDH (LD) (LACTATE DEHYDROGENASE) Comments: PATIENT NOT FASTINGPERFORMED BY: LabCoSaint Barnabas Medical CenterHybbdc4850 [facility] [id number] (31934) LDH 198 [iU]/L (Normal) Range: 0-214 44-Tuf-932376:06 IRON BINDING CAPACITY (TIBC) Comments: PATIENT NOT FASTINGPERFORMED BY: LabCoSaint Barnabas Medical CenterFghmbv0604 [facility] [id number] (11436) Iron Saturation 11 % (Abnormal) Range: 15-55 Iron, Serum 46 ug/dL (Normal) Range: 35-155 UIBC 389 ug/dL (Abnormal) Range: 150-375 Iron Bind.Cap.(TIBC) 435 ug/dL (Normal) Range: 250-450 99-Gvc-521595:06 FERRITIN (13843) Comments: PATIENT NOT FASTINGPERFORMED BY: LabCoSaint Barnabas Medical CenterIamkdy5410 [facility] [id number] Ferritin, Serum 12 ng/mL (Abnormal) Range: 13-150 7-Igd-514920:03 HgA1C , Office (71125) HgA1C , Office 7.1 % (Normal) Range: 4.6 - 7.1 :34 CBC WITH MANUAL DIFF (60269) Comments: PATIENT WAS FASTINGPERFORMED BY: LabCoSaint Barnabas Medical CenterZwujmx2215 [facility] [id number] Immature Grans (Abs) 0.0 {x10E3/uL} (Normal) Range: [...] 3.77-5.28 WBC 8.3 {x10E3/uL} (Normal) Range: 3.4-10.8 5-Nvv-754235:11 FECAL OCCULT- Tubes sent home (55000) FECAL OCCULT HGB ASSAY, QUAL, 1-3 SIMULTANEOU positive (Normal) :30 HgA1C , Office (43036) HgA1C , Office 7.3 % (Abnormal) Range: [...] mg/dL suggests DIABETES MELLITUS per A.D.A. criteria. 72-Tay-520550:09 MIACRE tMICROCREAT 70.2 {mg/g_CRE} (Abnormal) MIALB 76.8 mg/L (Normal) CREU 109.3 mg/dL (Normal) 24-Vkz-248621:09 VITD 23.9 ng/mL (Abnormal) Comments: appt 4-3-12 Range: 30.0-100.0 Comments: Vitamin D deficiency has been defined by the [place] of[place]icine and an Endocrine Society practice guideline as alevel of serum 25-OH vitamin D less than 20 ng/mL (1,2).The Endocrine Society went on to further define vitamin Dinsufficiency as a level between 21 and 29 ng/mL (2).1. IOM ([place] of Medicine). 2010. Dietary reference intakes for calcium and D. [place]: The National Academies Press.2. Bobo VALLES, Estrellita STOCKTON, Maddi CALIX, et al. Evaluation, treatment, and prevention of vitamin D deficiency: an Endocrine Society clinical practice guideline. JCEM. 2010; 96(7): 1911-30.Performed at: - LabAxial BiotechSaint Barnabas Medical CenterBgnecd6542 [place], [place] [address]Njw Director: Charisma Hamilton MD, Phone: [phone] 4-Vhn-930904:21 CHEST WITHOUT CONTRAST Radiology Report See Note [...] regarding this report, please jyoti edison felipe 84J0qdmsodv line @ Dictated on 02/15/111125 by Boone Alarcon DOribed on 02/15/111732 by ITS IMPORTSign by Emery Alarcon DO on 02/15/11 1734 Sign by: Emery Alarcon DO 4-Hwi-125385:30 HgA1C , Office (08397) HgA1C , Office 7.4 % (Abnormal) Range: 4.6 - 7.1 5-Tme-910160:30 Blood Glucose , Office (23013) Blood Glucose , Office 153 (Normal) :07 [...] ANNAMARIE WOODWARD MD :01 HgA1C , Office (71495) HgA1C , Office 7.9 % (Abnormal) Range: 4.6 - 7.1 55-Ovf-224013:01 Blood Glucose , Office (70173) Blood Glucose , Office 133 (Normal) :52 [...] CREAT 107.1 mg/dL (Normal) :52 VIT D,25 11287 19.0 ng/mL (Abnormal) Range: 32.0-100.0 Comments: Recent studies consider the lower limit of 32.0 ng/mL to helena threshold for optimal health.Sunday BETTENCOURT. J Nutr. 2004;135(2):317-22.Performed at: - LabCoJavier Ville [address]Lab Director: Charisma Hamilton MD, Phone: [phone] :52 VITAMIN B12 447 pg/mL (Normal) Range: [...] on 04/05/10 0305 Sign by: KEYA TREJO :02 DEXA BONE DENSITY STUDY (HP) Radiology Report See Note (Normal) Comments: CLINICAL:Female, 69 years old. The patient is postmenopausal. EXAMINATION:DUAL ENERGY X-RAY ABSORPTIOMETRY / DEXA. TECHNIQUE:Bone Mineral Density (BMD) measurements of lumbar spine and bila teralhipswer e obtained using a Traansmission scanner.. COMPARISON:Comparison is made with prior examination [...] by: John Babcock :28 HgA1C , Office (29926) HgA1C , Office 8.2 % (Abnormal) Range: 4.6 - 7.1 :28 Blood Glucose , Office (07964) Blood Glucose , Office 205 (Normal) :27 [...] CHOL 169 mg/dL (Normal) Comments: <200 mg/dL Tnwdooteo490-757 mg/dL Borderline>240 mg/dL High Risk HDL 24 [...] the presence of intrinsic factor blocking antibodies. 6-Rkg-903834:47 CHEST WITHOUT CONTRAST Radiology Report See Note (Normal) Comments: Exam Number: [id number] CT SCAN OF THE THORAX Multiple axial [...] unchanged as well. Reported By: JOHN BABCOCK 55-Hkj-293939:27 VITAMIN B-12 (CYANOCOBALAMIN) Comments: PATIENT NOT FASTINGPERFORMED BY: SK [employer]6370 [facility] NetworksGe[facility] Hospital [id number] (83811) Vitamin B12 338 pg/mL (Normal) Range: 211-946 Comments: Please note reference interval change 62-Yvb-046017:27 Vitamin D Hydroxy (33597) Comments: PATIENT NOT FASTINGPERFORMED BY: [employer]6370 [facility] NetworksGe[facility] Hospital [id number] Vitamin D, 25-Hydroxy 17.2 ng/mL (Abnormal) Range: 32.0-100.0 Comments: Recent studies consider the lower limit of 32.0 ng/mL to be athreshold for optimal health.Sunday BETTENCOURT. J Nutr. 2004;135(2):317-22. 86-Zyy-577159:27 CBC WITH MANUAL DIFF Comments: PATIENT NOT FASTINGPERFORMED BY: LabBea[facility] Hospital6370 [facility] [id number] Information: [id number] (79481) Baso (Absolute) 0.0 {x10E3/uL} (Normal) Range: 0.0-0.2 [...] 3.80-5.10 WBC 7.3 {x10E3/uL} (Normal) Range: 4.0-10.5 34-Xpa-503522:27 METABOLIC PANEL, COMPREHENSIVE Comments: PATIENT NOT FASTINGPERFORMED BY: [facility]6370 [facility] [id number] (70428) ALT (SGPT) 7 [iU]/L (Normal) Range: 0-40 [...] Range: 65-99 :38 Blood Glucose , Office (12680) Blood Glucose , Office 133 (Normal) :57 [...] CHOL 186 mg/dL (Normal) Comments: <200 mg/dL Gyrqybgak674-683 mg/dL Borderline>240 mg/dL High Risk 82-Ygh-95229:57 LIVER ALT 9 U/L (Abnormal) Range: 12-78 D BILI 0.10 mg/dL (Normal) Range: 0.00-0.30 T BILI 0.20 mg/dL (Normal) Range: 0.00-1.00 ALB 3.7 g/dL (Normal) Range: 3.4-5.0 ALK P 51 U/L (Normal) Range: 50-136 AST 6 U/L (Abnormal) Range: 15-37 T PROT 7.3 g/dL (Normal) Range: 6.4-8.2 31-Wpk-363437:17 KNEE,4 OR MORE VIEWS (MT) Radiology Report See Note (Normal) Comments: Exam Number: [id number] CLINICAL:Medial pain X-RAY EXAMINATION RIGHT KNEE TECHNIQUE: [...] Report See Note (Normal) Comments: Exam Number: [id number] NONCONTRAST CHEST CT Comparison is made with [...] difficile Toxins Negative (Normal) Comments: PERFORMED BY: [facility] [facility] [id number] :51 A+B, EIA :51 Ova + Parasite Exam Comments: PERFORMED BY: [facility] Ugmaey4950 [facility] [id number] Ova + Parasite Exam Final report (Normal) Comments: These results were obtained using wet preparation(s) and trichromestained smear. This test does not include testing for Cryptosporidiumparvum, Cyclospora, or Microsporidia. Result 1 NOCP (Normal) Comments: No ova, cysts, or parasites seen. :51 Stool Culture Comments: Clinical Information: SRC:ST PERFORMED BY: [facility]GenixBeaumont Hospital6370 [facility] [id number] Campylobacter Culture Final report (Normal) E coli Shiga Toxin EIA Negative (Normal) Result 1 NCI (Normal) Comments: No Campylobacter species isolated. Result 1 NSS (Normal) Comments: No Salmonella or Shigella recovered. Salmonella/Shigella Screen Final report (Normal) :51 White Blood Cells (WBC), Comments: PERFORMED BY: [employer] Tuynwl2654 [facility] [id number] Stool Result 1 NWBC (Normal) Comments: No white blood cells seen. White Blood Cells (WBC), Final report (Normal) Comments: Reference Range: None Seen Stool :52 CBC With Differential/Platelet Comments: PATIENT WAS FASTINGPERFORMED BY: [facility] Djvkdq2540 [facility] [id number] Baso (Absolute) 0.0 {x10E3/uL} (Normal) Range: 0.0-0.2 [...] 11.7-15.0 WBC 5.2 {x10E3/uL} (Normal) Range: 4.0-10.5 88-Xua-075104:52 Comp. Metabolic Panel (14) Comments: PATIENT WAS FASTINGPERFORMED BY: LabCoSaint Barnabas Medical CenterXavgrb3438 [facility] [id number] A/G Ratio 1.6 (Normal) Range: 1.1-2.5 Albumin, [...] Glucose, Serum 145 mg/dL (Abnormal) Range: 65-99 13-Kno-592548:52 Lipid Panel With LDL/HDL Comments: PATIENT WAS FASTINGPERFORMED BY: [facility]ovaNovant [facility] [id number] Ratio Cholesterol, Total 135 mg/dL (Normal) Range: [...] pg/mL (Normal) Comments: PATIENT WAS FASTINGPERFORMED BY: AmberWave70 NexerciseNovant Health [facility] [id number] 0:52 Range: 211-911 Vitamin D, 25-Hydroxy 13.6 ng/mL Comments: PATIENT WAS FASTINGPERFORMED BY: Graphic IndiaCo Ogzycx[address] Francis Hospitalkylie [place] [id number] 0:52 (Abnormal) Range: 32.0-100.0 Comments: Recent studies consider the lower limit of 32.0 ng/mL to be athreshold for optimal health.Sunday BETTENCOURT. J Nutr. 2004;135(2):317-22. :32 HgA1C , Office (95749) HgA1C , Office 6.9 % (Normal) Range: 4.6 - 7.1 :32 Blood Glucose , Office (71635) Blood Glucose , Office 179 (Normal) 07-Lcf-342562:25 ABDOMEN LIMITED US () Radiology Report See Note (Normal) Comments: Exam Number: [id number] CLINICAL:Abdominal pain. LIMITED ABDOMINAL ULTRASOUND COMPARISON:None. FINDINGS: [...] of cholecystitis. Reported By: HALIMA TURNER M.D. 9-Dih-441807:35 Urinalysis, Office (17155) UA - BILIRUBIN Moderate (Normal) UA - BLOOD Negative (Normal) UA - GLUCOSE Negative (Normal) UA - KETONES Small mg/dL (Normal) UA - LEUKOCYTE ESTERASE Negative (Normal) UA - NITRITE Negative (Normal) UA - PH 5.0 (Normal) UA - PROTEIN 30 mg/dL (Normal) UA - SPECIFIC GRAVITY 1.025 (Normal) URINE UROBILINGN JAMIL TIMED 2 mg/dL (Normal) : Comp. Metabolic Panel (14) Comments: PATIENT NOT FASTINGPERFORMED BY: [employer] Lfoyzk5908 [facility] [id number] A/G Ratio 1.3 (Normal) Range: 1.1-2.5 Albumin, [...] Panel (7) Comments: PATIENT NOT FASTINGPERFORMED BY: Mirage NetworksSaint Barnabas Medical CenterDuikkf9719 [facility] [id number] Bilirubin, Direct 0.17 mg/dL (Normal) Range: 0.00-0.40 [...] g/dL (Normal) Range: 6.4-8.2 :27 VIT D,25 66467 16.4 ng/mL (Abnormal) Comments: ORDERED LIPID,LIVER ALSO Range: 32.0-100.0 Comments: Recent studies consider the lower limit of 32.0 ng/mL to helena threshold for optimal health.Sunday BETTENCOURT. J Nutr. 2004;135(2):317-22.Performed At: [address] [id number] :27 VITAMIN B12 430 pg/mL (Normal) Comments: ORDERED LIPID,LIVER ALSO Range: 254-1320 48-Bzs-681388:01 BRAIN/HEAD W/WO CONTRAST Radiology Report See Note (Normal) Comments: Exam Number: [id number] CT OF THE HEAD WITH AND WITHOUT CONTRAST HDWEILH76-sywm-jdw woman who has had vague symptoms of [...] 02, 2008. Reported By: THANH ANNE M.D. 35-Bmq-23388:51 CBCD,SMEAR DIFF CELLS COUNTED 100 (Normal) EOS [...] mg/dL (Normal) Range: 0.00-0.30 :51 VIT D,25 48006 6.3 ng/mL (Abnormal) Range: 32.0-100.0 Comments: Recent studies consider the lower limit of 32.0 ng/mL to helena threshold for optimal health.Sunday BETTENCOURT. J Nutr. 2004;135(2):317-22.Performed At: [facility]6370 [place], [place] [id number] :51 VITAMIN B12 301 pg/mL (Normal) Range: 211-911 :43 CHEST WITHOUT CONTRAST Radiology Report See Note (Normal) Comments: Exam Number: [id number] CLINICAL: Nodules CT CHEST WITHOUT CONTRAST COMPARISON:April [...] cardiopulmonary disease Reported By: RIO KAY M.D. 47-Dgv-675008:13 HgA1C , Office (47705) HgA1C , Office 7.5 % (Abnormal) Range: 4.6 - 7.1 10-Fot-079219:13 Blood Glucose , Office (32868) Blood Glucose , Office 203 (Normal) Antiparietal Cell 2.2 {Units} Comments: PERFORMED BY: [place] [id number] 0:04 Antibody (Normal) Range: 0.0-20.0 Comments: Negative 0.0 - 20.0 Equivocal 20.1 - 24.9 Positive >24.9 . Parietal Cell Antibodies are found in 90% of patients with pernicious anemia and 30% of first degree relatives with pernicious anemia. 20-Shr-387114:04 CBC With Differential/Platelet Comments: PERFORMED BY: [employer] [id number] Baso (Absolute) 0.0 {x10E3/uL} Range: 0.0-0.2 (Normal) [...] Factor Abs, Negative (Normal) Comments: PERFORMED BY: Mirage Networksrp Pexvpeaojp1654 [facility] [id number] 0:04 Serum Vitamin B12 472 pg/mL (Normal) Comments: PERFORMED BY: Mirage NetworksHealthSouth - Rehabilitation Hospital of Toms RiverCsseczwlxu0553 [facility] [id number] 0:04 Range: 211-911 :32 Fecal Occult Blood , Office (19388) Fecal Occult Blood Negative (Normal) , Office Ferritin, Serum 21 ng/mL (Normal) Comments: PATIENT NOT FASTINGPERFORMED BY: [employer] Bxtzog2615 [address] emazebl[address] [place] [id number] :21 Range: 10-291 Folate (Folic >24.0 ng/mL (Normal) Comments: PATIENT NOT FASTINGPERFORMED BY: [employer] Sqewap9386 [address] emazeblin [place] [id number] :21 Acid), Serum Comments: Indeterminate: 3.4 - 5.4 Deficient: <3.4 :21 Iron and TIBC Comments: PATIENT NOT FASTINGPERFORMED BY: [employer] Nclwes2480 [address] emazeSelect Specialty Hospital [facility] [place] [id number] Iron Bind.Cap.(TIBC) 377 ug/dL (Normal) Range: 250-450 Iron Saturation 13 % (Abnormal) Range: 15-55 Iron, Serum 49 ug/dL (Normal) Range: 35-155 UIBC 328 ug/dL (Normal) Range: 150-375 LDH 145 [iU]/L (Normal) Comments: PATIENT NOT FASTINGPERFORMED BY: [employer] Anvihz6367 [address] emazeSelect Specialty Hospital [facility] [id number] :21 Range: 100-250 Reticulocyte Count 2.1 % (Normal) Comments: PATIENT NOT FASTINGPERFORMED BY: [facility]Co Lxomxs[address] [facility] Hospitalin [place] [id number] :21 Range: 0.5-3.0 Vitamin B12 182 pg/mL Comments: PATIENT NOT FASTINGPERFORMED BY: CloudGenixCo Bdowke9736 Ryan emazeSelect Specialty Hospital [facility] [id number] :21 (Abnormal) Range: 211-911 :33 HgA1C , Office (44189) Comments: done>Wf. HgA1C , Office 6.8 % (Normal) Range: 4.6 - 7.1 :33 Blood Glucose , Office (63634) Comments: done>Wf. Blood Glucose , Office 150 [...] T PROT 6.7 g/dL (Normal) Range: 6.4-8.2 99-Prm-351095:27 BILAT SCRN DIGITAL & CAD Radiology Report See Note (Normal) Comments: Exam Number: [id number] MAMMOGRAM, BILATERAL SCREENING DIGITAL AND CAD HISTORYRoutine [...] kailash werealso examined with computer-aided detection software (ImageInvesting.comckEnterpriseDB, baimos technologies, [employer].). Reported By: KEYA TREJO M.D. 38-Qoo-751942:27 DEXA BONE DENSITY STUDY (HP) Radiology Report See Note (Normal) Comments: Exam Number: [id number] BONE DENSITOMETRY HISTORYPostmenopausal. TECHNIQUE Bone densitometry of the lumbar spine and left hip was performed. Thebest criteria for evaluation of osteoporosis is the T- value, whichrepresents the comparison of the patient's bone mass to an expectedpeak bone mass. For most patients, the mean T-value of L1 through L4is used to evaluate the lumbar spine. Based on the [facility] WorldHealth Organization classifications, the hip is evaluated [...] left hip. Reported By: KEYA TREJO M.D. 30-Cyd-672271:46 HgA1C , Office (77067) HgA1C , Office 6.7 % (Normal) Range: 4.6 - 7.1 46-Dmq-309829:46 Blood Glucose , Office (20197) Blood Glucose , Office 170 (Normal) :46 [...] Report See Note (Normal) Comments: Exam Number: [id number] RIGHT KNEE CLINICAL INFORMATIONKnee pain. Standing AP [...] Report See Note (Normal) Comments: Exam Number: [id number] CT CHEST NONCONTRAST CLINICAL STATEMENTFollow of lung [...] RICHARD CANADA M.D. :33 HgA1C , Office (66152) HgA1C , Office 6.5 % (Normal) Range: 4.6 - 7.1 :33 Blood Glucose , Office (70114) Blood Glucose , Office 89 (Normal) :34 [...] Range: 6.4-8.2 :17 Blood Glucose , Office (11948) Blood Glucose , Office 175 (Normal) :41 [...] :41 TSH 1.10 {uIU/mL} (Normal) Range: 0.34-4.82 26-Xur-54347:53 CHEST WITH CONTRAST Radiology Report See Note (Normal) Comments: Exam Number: [id number] CT SCAN OF CHEST HISTORYCough. Consecutive axial [...] is suggested. Reported By: KEYA TREJO M.D. 7-Hzp-095273:45 HgA1C , Office (90728) Comments: [facility] HgA1C , Office 6.6 % (Normal) Range: 4.6 - 7.1 :45 Blood Glucose , Office (85297) Comments: [facility] Blood Glucose , Office 105 (Normal) [...] Report See Note (Normal) Comments: Exam Number: [id number] CHEST PA AND LATERAL STATEMENTCough and pneumonia. [...] CHIVO MONIQUE M.D. :41 HgA1C , Office (24449) HgA1C , Office 6.8 % (Normal) Range: 4.6 - 7.1 :41 Blood Glucose , Office (15379) Blood Glucose , Office 126 (Normal) 53-Zac-785828:11 CBCD,SMEAR DIFF CELLS COUNTED 100 (Normal) EOS [...] 47-70 WBC 7.4 K/mm3 (Normal) Range: 4.4-11.0 95-Uxm-944112:11 COMP METABOLIC A/G 1.1 {RATIO} (Normal) Range: [...] T PROT 7.1 g/dL (Normal) Range: 6.4-8.2 77-Mhr-244170:11 COMPLETE UA BACTERIA 0 SEEN {/hpf} (Normal) [...] (Normal) Range: 0-5 Comments: Result: 0-5 SEEN 71-Ory-461489:11 MICROALBUMIN,UR 9.1 mg/L (Normal) :11 PFLIP CHOL [...] mg/dL VLDL 58 mg/dL (Abnormal) Range: 5-40 31-Waa-968497:11 TSH 0.85 {uIU/mL} (Normal) Range: 0.34-4.82 :11 HgA1C , Office (96741) HgA1C , Office 6.7 % (Normal) Range: 4.6 - 7.1 :11 Blood Glucose , Office (15774) Blood Glucose , Office 153 (Normal) Plan of Care Name Dates Details Instructions Diabetes mellitus type II, controlled : Follow up in 3 months Indication: Diabetes mellitus type II, controlled Asthma : Reviewed Vapor Coater Letter Indication: Asthma Coronary artery disease : Reviewed Vapor Coater Letter Indication: Coronary artery disease Hypertensive heart disease without heart failure : HTN/CAD Red Flags Indication: Hypertensive heart disease without heart failure ATRIAL FIBRILLATION (Renamed from A-fib) : Reviewed Vapor Coater Letter Indication: ATRIAL FIBRILLATION (Renamed from A-fib) Type 2 diabetes mellitus, uncontrolled : Follow up in 3 months Indication: Type 2 diabetes mellitus, uncontrolled Coronary artery disease : Reviewed Vapor Coater Letter Indication: Coronary artery disease Hypertensive heart [...] heart failure Coronary artery disease : Reviewed Vapor Coater Letter Indication: Coronary artery disease Diabetes mellitus [...] ATRIAL FIBRILLATION (Renamed from A-fib) : Reviewed Vapor Coater Letter Indication: ATRIAL FIBRILLATION (Renamed from A-fib) [...] ATRIAL FIBRILLATION (Renamed from A-fib) : Reviewed Vapor Coater Letter Indication: ATRIAL FIBRILLATION (Renamed from A-fib) Type 2 diabetes mellitus, uncontrolled : Follow up in 3 months Indication: Type 2 diabetes mellitus, uncontrolled Gout, arthritis : Reviewed Lab Indication: Gout, arthritis Asthma : Reviewed Vapor Coater Letter Indication: Asthma Type 2 diabetes mellitus, uncontrolled : *Diabetes Education Indication: Type 2 diabetes mellitus, uncontrolled Coronary artery disease : Reviewed Vapor Coater Letter Indication: Coronary artery disease Mixed dyslipidemia [...] Indication: Asthma Coronary artery disease : Reviewed Vapor Coater Letter Indication: Coronary artery disease Hypertensive heart [...] meninges : Follow up on Friday with [facility] Indication: Benign neoplasm of cerebral [...] : Follow up in 10 days with [facility] Indication: Cough Laryngitis : Laryngitis [...] pelvic and bimanual performed Planned Observations TSH ([id number])Indication: Diabetes mellitus type II, controlled On: :15 Request URINALYSIS, W/ MICRO ([id number])Indication: Diabetes mellitus type II, controlled On: 1-Mfb-102726:15 Request MICROALBUMIN: CREATININE RATIO (22871) AND ([id number])Indication: Diabetes mellitus type II, controlled On: :15 Request METABOLIC PANEL, COMPREHENSIVE (98387)Indication: Diabetes mellitus type II, controlled On: :15 Request CBC W/AUTO DIFF WBC ([id number])Indication: Diabetes mellitus type II, controlled On: :15 Request LIPOPROTEIN, BLD, BY NMR ([id number])Indication: Diabetes mellitus type II, controlled On: :15 Request VITAMIN B-12 (CYANOCOBALAMIN) ([id number])Indication: Other vitamin B12 deficiency anemia On: 5-Dnh-851676:13 Request TSH ([id number])Indication: ATRIAL FIBRILLATION (Renamed from A-fib) On: 35-Psb-852309:16 Request URINALYSIS, W/ MICRO ([id number])Indication: Diabetes mellitus type II, controlled On: 89-Uho-972108:16 Request MICROALBUMIN: CREATININE RATIO (51527) AND ([id number])Indication: Diabetes mellitus type II, controlled On: 56-Wfa-785312:16 Request METABOLIC PANEL, COMPREHENSIVE ([id number])Indication: Diabetes mellitus type II, controlled On: 56-Kpp-927150:16 Request LIPOPROTEIN, BLD, BY NMR ([id number])Indication: Diabetes mellitus type II, controlled On: 97-Qbs-547017:16 Request LIPID PANEL ([id number])Indication: Diabetes mellitus type II, controlled On: 95-Vrm-646619:16 Request CBC W/AUTO DIFF WBC ([id number])Indication: Diabetes mellitus type II, controlled On: 10-Avl-582007:15 Request VITAMIN B-12 (CYANOCOBALAMIN) (21229)Indication: Other vitamin B12 deficiency anemia On: 6-Jfx-906090:50 Request TSH ([id number])Indication: ATRIAL FIBRILLATION (Renamed from A-fib) On: 5-Vvk-983670:50 Request URINALYSIS, W/ MICRO ([id number])Indication: Hypertensive heart disease without heart failure On: 8-Xge-043456:49 Request MICROALBUMIN: CREATININE RATIO ([id number]) AND ([id number])Indication: Hypertensive heart disease without heart failure On: 1-Ovd-176203:49 Request METABOLIC PANEL, COMPREHENSIVE (56331)Indication: Hypertensive heart disease without heart failure On: 8-Uyn-141184:49 Request CBC W/AUTO DIFF WBC (96962)Indication: Hypertensive heart disease without heart failure On: 0-Err-673056:49 Request CALCIFEDIOL ([id number])Indication: Vitamin D deficiency, unspecified On: 1-Elv-512173:49 Request LIPID PANEL (31921)Indication: Mixed dyslipidemia On: 9-Moy-974930:49 Request URINALYSIS, W/ MICRO ([id number])Indication: Type 2 diabetes mellitus, uncontrolled On: 54-Dai-672304:23 Request MICROALBUMIN: CREATININE RATIO (79695) AND ([id number])Indication: Type 2 diabetes mellitus, uncontrolled On: 30-Bfl-261916:23 Request HEMOGLOBIN GLYCLATED (HGB A1C) ([id number])Indication: Type 2 diabetes mellitus, uncontrolled On: 26-Qpq-114892:03 Request HgA1C , Office (70819)Indication: Type 2 diabetes mellitus, uncontrolled On: 19-Ana-937829:46 Request Vitamin D Hydroxy (36743)Indication: Vitamin D deficiency, unspecified On: 90-Svn-815180:16 Request VITAMIN B-12 (CYANOCOBALAMIN) (83973)Indication: Other vitamin B12 deficiency anemia On: 50-Lkl-191690:16 Request CBC with auto diff (36763)Indication: Iron deficiency anemia, unspecified On: 12-Apx-774908:15 Request LIPID PANEL (07545)Indication: Mixed dyslipidemia On: 25-Qxg-637240:15 Request METABOLIC PANEL, COMPREHENSIVE (58799)Indication: Type 2 diabetes mellitus, uncontrolled On: 50-Mzf-059758:15 Request CBC W/AUTO DIFF WBC (68490)Indication: Iron deficiency anemia, unspecified On: 18-Qhy-070549:44 Request URINALYSIS, W/ MICRO ([id number])Indication: Heart disease, hypertensive, malignant, without heart failure On: 45-Kdb-082482:44 Request METABOLIC PANEL, COMPREHENSIVE (97158)Indication: Heart disease, hypertensive, malignant, without heart failure On: 79-Qtl-905878:44 Request MICROALBUMIN: CREATININE RATIO (91918) AND ([id number])Indication: Heart disease, hypertensive, malignant, without heart failure On: 43-Mhe-835904:44 Request IRON ([id number])Indication: Iron deficiency anemia, unspecified On: 23-Qlg-092098:44 Request CBC, Platelets & Auto Diff (09551)Indication: SOB On: 6-Nlq-920361:09 Request Renal function Panel (85839)Indication: SOB On: 8-Ujj-646516:09 Request Vitamin D Hydroxy (96023)Indication: Vitamin D deficiency, unspecified On: 42-Wpm-061379:04 Request VITAMIN B-12 (CYANOCOBALAMIN) (44542)Indication: Other vitamin B12 deficiency anemia On: 32-Bud-127153:04 Request METABOLIC PANEL, COMPREHENSIVE (64631)Indication: Type 2 diabetes mellitus, uncontrolled On: 98-Rjp-429188:04 Request IRON (77988)Indication: Iron deficiency anemia, unspecified On: 82-Jcf-187715:59 Request IRON (02554)Indication: Iron deficiency anemia, unspecified On: 47-Tip-397970:18 Request CBC WITH MANUAL DIFF (09956)Indication: Iron deficiency anemia, unspecified On: 10-Xyp-157839:43 Request METABOLIC PANEL, COMPREHENSIVE (05373)Indication: Hypertensive heart disease without heart failure On: 47-Jhj-101708:43 Request CBC with manual diff ([id number])Indication: Anemia On: :53 Request Comments: recheck in 3 months Ferritin (61885)Indication: Anemia On: :53 Request Iron Binding Capacity (TIBC) (35606)Indication: Anemia On: :53 Request Iron (35348)Indication: Anemia On: :53 Request LIPID PANEL (93105)Indication: Mixed dyslipidemia On: 16-Dsm-439701:43 Request IRON ([id number])Indication: Iron deficiency anemia, unspecified On: 86-Bwd-530245:35 Request Vitamin D Hydroxy (82475)Indication: Vitamin D deficiency, unspecified On: 7-Bsl-386021:14 Request METABOLIC PANEL, COMPREHENSIVE (30628)Indication: Type 2 diabetes mellitus, uncontrolled On: 2-Cxm-418995:13 Request IRON BINDING CAPACITY (TIBC) (54255)Indication: Iron deficiency anemia, unspecified On: 0-Yvc-282428:10 Request FERRITIN (16662)Indication: Iron deficiency anemia, unspecified On: 2-Ava-996147:10 Request IRON ([id number])Indication: Iron deficiency anemia, unspecified On: 4-Ppq-197710:10 Request MICROALBUMIN: CREATININE RATIO (94982) AND (80595)Indication: Type 2 diabetes mellitus, uncontrolled On: 0-Fzt-638329:58 Request METABOLIC PANEL, COMPREHENSIVE (11427)Indication: Type 2 diabetes mellitus, uncontrolled On: :58 Request CBC WITH MANUAL DIFF ([id number])Indication: Type 2 diabetes mellitus, uncontrolled On: 4-Tvs-999607:58 Request Vitamin D Hydroxy (66599)Indication: Vitamin D deficiency, unspecified On: 3-Nwo-438691:58 Request VITAMIN B-12 (CYANOCOBALAMIN) (70440)Indication: Other vitamin B12 deficiency anemia On: 2-Jdg-410623:58 Request LIPID PANEL (16338)Indication: Mixed dyslipidemia On: :01 Request METABOLIC PANEL, COMPREHENSIVE (69289)Indication: Hypertension On: 74-Lso-995283:00 Request CBC WITH MANUAL DIFF (48537)Indication: Other vitamin B12 deficiency anemia On: 93-Rgw-574649:00 Request VITAMIN D, 1, 25-DIHYDROXY (65332)Indication: Vitamin D deficiency, unspecified On: :00 Request Vitamin D Hydroxy (13716)Indication: Vitamin D deficiency, unspecified On: : Request LIPID PANEL (87201)Indication: Mixed dyslipidemia On: : Request METABOLIC PANEL, COMPREHENSIVE (65961)Indication: Diabetes mellitus type II, controlled On: : Request CBC WITH MANUAL DIFF (09514)Indication: Other vitamin B12 deficiency anemia On: : Request MICROALBUMIN: CREATININE RATIO ([id number]) AND (93164)Indication: Diabetes mellitus type II, controlled On: : Request VITAMIN B-12 (CYANOCOBALAMIN) (89697)Indication: Other vitamin B12 deficiency anemia On: : Request HEMOGLOBIN GLYCLATED (HGB A1C) (74025)Indication: Diabetes mellitus type II, controlled On: :27 Request LIPID PANEL (20899)Indication: Mixed dyslipidemia On: :16 Request METABOLIC PANEL, COMPREHENSIVE (76020)Indication: Type 2 diabetes mellitus, uncontrolled On: :15 Request CBC WITH MANUAL DIFF (82627)Indication: Type 2 diabetes mellitus, uncontrolled On: :15 Request MICROALBUMIN: CREATININE RATIO (43836) AND (12513)Indication: Type 2 diabetes mellitus, uncontrolled On: :15 Request VITAMIN B-12 (CYANOCOBALAMIN) (21512)Indication: Other vitamin B12 deficiency anemia On: :15 Request Vitamin D Hydroxy (82598)Indication: Vitamin D deficiency, unspecified On: :15 Request HgA1C , Office (76903)Indication: Type 2 diabetes mellitus, uncontrolled On: 03-Mlt-981302:38 Request VITAMIN B-12 (CYANOCOBALAMIN) (83631)Indication: Other vitamin B12 deficiency anemia On: :55 Request LIPID PANEL (02081)Indication: Mixed dyslipidemia On: :55 Request METABOLIC PANEL, COMPREHENSIVE (23480)Indication: Heart disease, hypertensive, malignant, without heart failure On: :53 Request CBC WITH MANUAL DIFF (73343)Indication: Diverticulitis On: :53 Request LEUKOCYTE COUNT, FECAL (32995)Indication: Diarrhea On: :47 Request C.Difficile, Stool (20185)Indication: Diarrhea On: :47 Request BRO CULTURE-STOOL (86182)Indication: Diarrhea On: :47 Request Metabolic Panel, Comprehensive ([id number])Indication: Abdominal pain, unspecified abdominal location On: :46 Request HEPATIC FUNCTION PANEL (99266)Indication: Abdominal pain, unspecified abdominal location On: :46 Request Bilirubin, Direct (02476)Indication: Abdominal pain, unspecified abdominal location On: :44 Request Bilirubin, total (65604)Indication: Abdominal pain, unspecified abdominal location On: :44 Request CBC WITH MANUAL DIFF (56639)Indication: Other vitamin B12 deficiency anemia On: 38-Zhb-753633:15 Request VITAMIN B-12 (CYANOCOBALAMIN) (62929)Indication: Other vitamin B12 deficiency anemia On: :15 Request LIPID PANEL (77725)Indication: Mixed dyslipidemia On: :14 Request METABOLIC PANEL, COMPREHENSIVE (60598)Indication: Heart disease, hypertensive, malignant, without heart failure On: 66-Upc-006931:14 Request Vitamin D Hydroxy (89369)Indication: Vitamin D deficiency, unspecified On: :06 Request CBC, PLATELETS & AUT DIFF (47718)Indication: Other vitamin B12 deficiency anemia On: :45 Request VITAMIN B-12 (CYANOCOBALAMIN) (23093)Indication: Other vitamin B12 deficiency anemia On: :45 Request HEPATIC FUNCTION PANEL (34576)Indication: Mixed dyslipidemia On: :44 Request LIPID PANEL (53631)Indication: Mixed dyslipidemia On: :44 Request Vitamin D Hydroxy (36077)Indication: vit d deficiency On: :33 Request Vitamin D Hydroxy (30437) On: 66-Bqb-650139:04 Request VITAMIN B-12 (CYANOCOBALAMIN) (06993)Indication: Other vitamin B12 deficiency anemia On: : Request CBC WITH MANUAL DIFF ([id number])Indication: Heart disease, hypertensive, malignant, without heart failure On: : Request METABOLIC PANEL, COMPREHENSIVE (16496)Indication: Heart disease, hypertensive, malignant, without heart failure On: : Request LIPOPROTEIN, BLD, BY NMR (78288)Indication: Mixed dyslipidemia On: : Request HEPATIC FUNCTION PANEL (03207)Indication: Mixed dyslipidemia On: : Request LIPID PANEL (77845)Indication: Mixed dyslipidemia On: Request FOLIC ACID SERUM (88367)Indication: Anemia On: Request FERRITIN (14398)Indication: Anemia On: : Request IRON (93700)Indication: Anemia On: Request IRON BINDING CAPACITY (TIBC) (81265)Indication: Anemia On: Request RETICULOCYTE COUNT MANUL (23600)Indication: Anemia On: Request LDH (LD) (LACTATE DEHYDROGENASE) (33613)Indication: Anemia On: Request VITAMIN B-12 (CYANOCOBALAMIN) (34566)Indication: Anemia On: : Request CBC WITH MANUAL DIFF (03310)Indication: Anemia On: Request HEPATIC FUNCTION PANEL (87308)Indication: Mixed dyslipidemia On: Request LIPID PANEL (16199)Indication: Mixed dyslipidemia On: Request MICROALBUMIN URINE QUANT (94646)Indication: Hypertension On: Request TSH (72869)Indication: Hypertension On: Request METABOLIC PANEL, COMPREHENSIVE (89939)Indication: Diabetes mellitus type II, controlled On: : Request HEPATIC FUNCTION PANEL (32114)Indication: Mixed dyslipidemia On: Request LIPID PANEL (22093)Indication: Mixed dyslipidemia On: 57-Cko-972957:42 Request CBC WITH MANUAL DIFF (89695)Indication: Anemia On: :36 Request HEPATIC FUNCTION PANEL (11021)Indication: Mixed dyslipidemia On: :36 Request LIPID PANEL (19548)Indication: Mixed dyslipidemia On: :36 Request HgA1C , Office (84507)Indication: Diabetes mellitus type II, controlled On: :17 Request URINALYSIS W/O MICRO (44203)Indication: Hypertension On: :47 Request TSH (28888)Indication: Hypertension On: :47 Request METABOLIC PANEL, COMPREHENSIVE (92009)Indication: Hypertension On: :47 Request CBC WITH MANUAL DIFF (32493)Indication: Hypertension On: :47 Request Thin prep Pap (97817)Indication: well female - pap pelvic and bimanual performed On: 8-Owp-823126:02 Request Planned Encounters Medical; 3 Month FU - On: 23-Mar-2018 10:00 [facility] Nia Uriostegui DO, DO, Kathleen Planned Procedures Flu Vaccine (Quadrivalent) On: 15-Dec-2017 Intent 10222Wi: Nia Uriostegui DO Comments: Lot #[id number]-L dltd, IMDose prefilled syringegiven by: Susie Lopez LPN.VIS reviewed and ABN signed Nia Uriostegui DO B 12 Injection, 1000 mcg On: 15-Dec-2017 Intent (J3420)By: Nia Uriostegui DO Comments: 1 ml given rt dltd lot [id number] exp 05/30 Nia Uriostegui DO ELECTROCARDIOGRAM, COMPLETE On: 15-Dec-2017 Intent (ECG) (41437)By: Moody MCFARLAND, Comments: nsr !! yeah- no acute chg poor R wave progression Nia Reed DO ELECTROCARDIOGRAM, COMPLETE On: 27-Aug-2017 Intent (ECG) (46256)By: Moody MCFARLAND, Comments: nsr - ivcd - pvc no acute chg Nia Reed DO B 12 Injection, 1000 mcg On: 28-May-2017 Intent (J3420)By: Nia Uriostegui DO Comments: vitamin b12 1000mcg injectionlot: [id number]:11/2018L DELT IMpt tolerated wellAD INDIVIDUALIZED EDUCATION PLAN AIDE Nia Uriostegui DO B 12 Injection, 1000 mcg On: 12-Feb-2017 Intent (J3420)By: Nia Uriostegui DO Comments: 1 ml given lt arm lot [id number] exp 06/28 Nia Uriostegui DO B 12 Injection, 1000 mcg On: 29-Nov-2016 Intent (J3420)By: Nia Uriostegui DO Comments: b12 1000mcglot: [id number]: 03/2018L DELT IMpt tolerated wellAD INDIVIDUALIZED EDUCATION PLAN AIDE Nia Uriostegui DO Flu Vaccine (Quadrivalent) On: 07-Nov-2016 Intent 31343Qu: Nia Uriostegui DO Comments: Lot:[id number]:07/28/17Amt:0.5mlRoute:IMSite: L DltdGiven By: RAHUL Bar DO, Kathleen B 12 Injection, 1000 mcg On: 04-Nov-2016 Intent (J3420)By: Nia Uriostegui DO Comments: lot [id number] exp mcgleft dltdIMas Nia Uriostegui DO B 12 Injection, 1000 mcg On: 08-Aug-2016 Intent (J3420)By: Nia Uriostegui DO Comments: Lot:[id number]:07/28Dose:1mlRoute:IMSite:l armGiven By:Nia Nava DO B 12 Injection, 1000 mcg On: 24-Apr-2016 Intent (J3420)By: Nia Uriostegui DO Comments: Lot:[id number]:05/28Dose:1mlRoute:IMSite:Given By:Nia Nava DO ELECTROCARDIOGRAM, COMPLETE On: 24-Apr-2016 Intent (ECG) (87833)By: Moody MCFARLAND, Comments: sinus ana no acute chg Nia Reed DO Aerosol Treatment (49113)By: On: 27-Feb-2016 Intent Balbir Cramer MD Solu- Medrol Injection, 125mg On: 27-Feb-2016 Intent (J2930)By: Balbir Cramer MD Comments: lot [id number] 07/20182290377 mgleft gmIMas, INDIVIDUALIZED EDUCATION PLAN AIDE Pulse Oximetry (84846)By: Bela On: 16-Jan-2016 Intent Balbir ROSAS Aerosol Treatment (98079)By: On: 16-Jan-2016 Intent Balbir Cramer MD Solu- Medrol Injection, 125mg On: 16-Jan-2016 Intent (J2930)By: Balbir Cramer MD Comments: Lot:[id number]:06/28Dose:125mgRoute:imSite:r hipGiven By:SASKIA signed CHEST XRAY, PA & LATERAL On: 16-Jan-2016 Intent (01398)By: Balbir Cramer MD Comments: ?PNA CAROTID ULTRASOUND (97389)By: On: 16-Jan-2016 Intent Balbir Cramer MD DEXA SCAN AXIAL SKELETON On: 16-Jan-2016 Intent (86049)By: Balbir Cramer MD MAMMOGRAM, SCREENING, BOTH On: 16-Jan-2016 Intent BREAST (82243)By: Balbir Cramer MD B 12 Injection, 1000 mcg On: 16-Jan-2016 Intent (J3420)By: Balbir Cramer MD Comments: lot: [id number]: ite/route: L del/IMamt: 1mLVIS signed when applicableMONSTER Molina B 12 Injection, 1000 mcg On: 11-Oct-2015 Intent (J3420)By: Balbir Cramer MD Flu Vaccine (Quadrivalent) On: 11-Oct-2015 Intent 16267Nb: Balbir Cramer MD Comments: Lot #[id number]/30/17ite-L dltd, IMDose prefilled syringegiven by:MAYCO OSWALD and ABN signed B 12 Injection, 1000 mcg On: 22-May-2015 Intent (J3420)By: Maylin Melendez DO B 12 Injection, 1000 mcg On: 17-Mar-2015 Intent (J3420)By: Maylin Melendez DO Comments: lot: [id number]: 10/27site/route: L del/IMamt: 1mLVIS signed when applicableMONSTER Molina PNEUM VAC ADLT/IMUMNOSPR, On: 30-Dec-2014 Intent SBC/INTRM (54892)By: Al MCFARLAND, Comments: PNUEMOlot:[id number]:1*13*17site:Rt deltoidroute:IMdose:.5mlDEMICK, SMA Maylin A B 12 Injection, 1000 mcg On: 30-Dec-2014 Intent (J3420)By: Maylin Melendez DO Comments: B12lot:[id number]:05/27site: LT deltoidROute: IMdose:1ml ADMINISTRATION OF INFLUENZA On: 21-Oct-2014 Intent VIRUS VACCINE (G0008)By: Maylin Melendez DO FLU VAC, SPLIT, >3 YEARS, On: 21-Oct-2014 Intent INTRAMUSC (88885)By: Al MCFARLAND, Comments: lot: [id number]: 08/10/15ite/route: L del/IMamt: 1mLVIS signed when applicableChelsMONTSER armenta MAMMOGRAM, SCREENING, BOTH On: 05-Oct-2014 Intent BREAST (75966)By: Maylin Melendez DO Cartoid DopplerBy: Al MCFARLAND, On: 05-Oct-2014 Intent Maylin A B 12 Injection, 1000 mcg On: 05-Oct-2014 Intent (J3420)By: Maylin Melendez DO Comments: Lot:[id number]:02Route:IMSite:R deltoidDose: 1 mLgiven by: Adalgisa Sexton CMA B 12 Injection, 1000 mcg On: 01-Sep-2014 Intent (J3420)By: Adalgisa Sexton Comments: Lot:[id number]:12.26Route:IMSite:R deltoidDose: 1 mLgiven by: Adalgisa Sexton CMA B 12 Injection, 1000 mcg On: 26-May-2014 Intent (J3420)By: Adalgisa Sexton Comments: lot:[id number]:04/25route:IMdose:1MLSite:R deltoidgiven by: ANS B 12 Injection, 1000 mcg On: 11-Apr-2014 Intent (J3420)By: Kaci Gomez LPN Comments: lot: [id number]: 11/25Dose: 1,000 mcgSite: l dltdLocation; IMby: Solu -Medrol Injection, 125 mg On: 22-Feb-2014 Intent (J2930)By: Maylin Melendez DO Comments: [id number] 6.74647 mgleft gmIMas, INDIVIDUALIZED EDUCATION PLAN AIDE Solu -Medrol Injection, 125 mg On: 31-Jan-2014 Intent (J2930)By: Sherrie Amor CNP Comments: lot [id number] 06/2016location R hiproute imgiven by - msmith VIS and/or ABN signed B 12 Injection, 1000 mcg On: 21-Jan-2014 Intent (J3420)By: Maylin Melendez DO Comments: lot [id number] 05/2015location L armroute imgiven by - msmith VIS and/or ABN signed Aerosol Treatment (14999)By: On: 14-Jan-2014 Intent Sherrie Amor CNP Radiology - ChestBy: Mt On: 14-Jan-2014 Intent Sherrie OJEDA Comments: stat call results to Dr Uriostegui is national account representative EKG (40501)By: Mt OJEDA, On: 14-Jan-2014 Intent Sherrie Beck Comments: looks same as before No new ST -t wave changes ADMINISTRATION OF INFLUENZA On: 29-Nov-2013 Intent VIRUS VACCINE (G0008)By: Al Comments: Lot #[id number]-L dltd, IMDose prefilled syringegiven by:LORIN laurent and ABN signed Maylin MCFARLAND FLU VAC, SPLIT, >3 YEARS, On: 29-Nov-2013 Intent INTRAMUSC (45522)By: Maylin Melendez DO B 12 Injection, 1000 mcg On: 29-Nov-2013 Intent (J3420)By: Maylin Melendez DO Comments: magen, Antoinette dltd, Im - see flowsheet for lot and exp Radiology - Knee - Left - On: 06-Sep-2013 Intent Weight BearingBy: Maylin Melendez DO MAMMOGRAM, SCREENING, BOTH On: 18-Aug-2013 Intent BREAST (69120)By: Maylin Melendez DO B 12 Injection, 1000 mcg On: 18-Aug-2013 Intent (J3420)By: Maylni Melendez DO Aerosol Treatment (62649)By: On: 16-Jul-2013 Intent Sherrie Amor CNP Aerosol Treatment (81497)By: On: 09-Jul-2013 Intent Sherrie Amor CNP Radiology - ChestBy: Taylapily On: 09-Jul-2013 Intent Sherrie OJEDA Eprescribed prescriptions On: 09-Jul-2013 Intent (G8553)By: Mt OJEDA Sherrie Beck B 12 Injection, 1000 mcg On: 24-Jun-2013 Intent (J3420)By: Visit, Nurse Eprescribed prescriptions On: 24-Jun-2013 Intent (G8553)By: Visit, Nurse Solu- Medrol Injection, 125mg On: 21-Jun-2013 Intent (J2930)By: Mt OJEDA Sherrie Beck Cartoid DopplerBy: Al MCFARLAND, On: 05-May-2013 Intent Maylin Sherman Eprescribed prescriptions On: 05-May-2013 Intent (G8553)By: Maylin Melendez DO B 12 Injection, 1000 mcg On: 27-Apr-2013 Intent (J3420)By: Visit, Nurse Comments: Lot:[id number]:12/25Dose:1mlRoute:IMSite:l armGiven By:SASKIA signed Aerosol Treatment (25138)By: On: 17-Feb-2013 Intent Nia Uriostegui DO, DO, Comments: more q/e less cough -- ok to use rescue inhaler prn not moer than bid with a fib -- if needs ansd worsen go to ER-- pulse reguar after treatment Nia Spirometry (18851)By: Moody On: 17-Feb-2013 Nia Amaya DO, DO, Comments: mild restriction -- stable Nia Solu- Medrol Injection, 125mg On: 17-Feb-2013 Intent (J2930)By: Nia Uriostegui DO Comments: lot: [id number]: 16site/route: RGM/IMamt: 2mLVIS signed when applicableMONSTER Molina DO, Kathleen Eprescribed prescriptions On: 17-Feb-2013 Intent (G8553)By: Nia Uriostegui DO, DO, Kathleen EKG (20641)By: Maylin Melendez DO On: 12-Jan-2013 Intent A Comments: ekg showed normal sinus rhythym, left axis, no acute st/t wave changes Pelvic and Breast, Medicare On: 12-Jan-2013 Intent (G0101)By: Natalya Kohli Eprescribed prescriptions On: 18-Dec-2012 Intent (G8553)By: Maylin Melendez DO FLU VAC, SPLIT, >3 YEARS, On: 18-Dec-2012 Intent INTRAMUSC (50522)By: Seun, Comments: Lot #:[id number] date:mount given:0.5mlRoute: IMSite given: L dltdVIS and ABN signedGiven by: CHILO Gillespie ADMINISTRATION OF INFLUENZA On: 18-Dec-2012 Intent VIRUS VACCINE (G0008)By: Natalya Kohli B 12 Injection, 1000 mcg On: 01-Dec-2012 Intent (J3420)By: Tracy Barnes Comments: Lot:[id number]:09/24Dose:1mlRoute:IMSite:l armGiven By:SASKIA signed Eprescribed prescriptions On: 02-Nov-2012 Intent (G8553)By: Sherrie Amor CNP Radiology - Foot - RightBy: On: 02-Nov-2012 Intent Sherrie Amor CNP B 12 Injection, 1000 mcg On: 19-Oct-2012 Intent (J3420)By: Tracy Barnes Comments: lot: [id number]: 09/23site/route: L deltoid/IMamt: 1mLVIS signed when applicableMONSTER Molina B 12 Injection, 1000 mcg On: 31-Aug-2012 Intent (J3420)By: Maylin Melendez DO Comments: Lot: [id number]: [id number]: 1000mcg/1mlRoute: IMSite: L deltoidGiven by: KASIA Samson Eprescribed prescriptions On: 31-Aug-2012 Intent (G8553)By: Natalya Kohli Nuclear Medicine - Other - On: 18-Aug-2012 Intent Vertebral AssessmentBy: Al Comments: Maylin Vogel DO DXA, BONE DENSITY, AXIAL On: 22-Jun-2012 Intent SKELETON ([id number])By: Maylin Melendez DO MAMMOGRAM, SCREENING, BOTH On: 22-Jun-2012 Intent BREASTS ([id number])By: Maylin Melendez DO B 12 Injection, 1000 mcg On: 15-Jun-2012 Intent (J3420)By: Tracy Barnes Comments: lot: [id number]: 12/24site/route: R deltoid/IMamt: 1,000mcgVIS signed when applicableChelsea, SHIPPING AND RECEIVING ASSOCIATE Eprescribed prescriptions On: 17-Apr-2012 Intent (G8553)By: Natalya Kohli 12 Injection, 1000 mcg On: 13-Apr-2012 Intent (J3420)By: Ramona Vásquez Comments: Lot:[id number]:01/23Dose:1mlRoute:IMSite:r armGiven By:SASKIA signed Eprescribed prescriptions On: 27-Mar-2012 Intent (G8553)By: Susie Lopez LPN FLU VAC, SPLIT, >3 YEARS, On: 17-Jan-2012 Intent INTRAMUSC ([id number])By: Al MCFARLAND, Comments: Lot #[id number]/13Site-left deltoidgiven by: KASIA Fajardo A ADMINISTRATION OF INFLUENZA On: 17-Jan-2012 Intent VIRUS VACCINE (G0008)By: Maylin Melendez DO Eprescribed prescriptions On: 17-Jan-2012 Intent (G8553)By: Natalya Kohli 12 Injection, 1000 mcg On: 31-Dec-2011 Intent (J3420)By: Maylin Melendez DO Comments: Lot:[id number]:Dose:1mlRoute:IMSite:L armGiven By:JACQUIE Aerosol Treatment ([id number])By: On: 24-Dec-2011 Intent Ciesa Sherrie OJEDA B 12 Injection, 1000 mcg On: 29-Oct-2011 Intent (J3420)By: Natalya Kohli Comments: Lot #[id number]-R arm, IMDose-prefilled syringegiven by:RAHUL Malloy signed CT - ChestBy: Maylin Melendez DO A On: 24-Sep-[address] - ChestBy: Maylin Melendez DO On: 24-Sep-2011 Intent Holter Monitor 24 hrsBy: Al On: 17-Sep-2011 Intent Maylin MCFARLAND Comments: please do this week and copy to dr betsy AREVALO ([id number])By: Maylin Melendez DO On: 17-Sep-2011 Intent A Comments: ekg- sinus [...] MAMMOGRAM, SCREENING, BOTH On: 14-May-2011 Intent BREASTS (51910)By: Maylni Melendez DO CT - ChestBy: Maylin Melendez [...] (G8553)By: Maylin Melendez DO CT - ChestBy: Al MCFARLAND Maylin A On: 14-Jan-2011 Intent B 12 Injection, 1000 mcg On: 21-Nov-2010 Intent (J3420)By: Carol Reina LPN Comments: Lot #[id number]-11.21Site-Right dltd, IMDose 1mlgiven by:KASIA Medina Solu -Medrol Injection, 125 mg On: 24-Aug-2010 Intent (J2930)By: Sherrie Amor CNP Comments: Lot #[id number]-R hip, IMDose 125mg, 2 mlgiven by: Aerosol Treatment ([id number])By: On: 24-Aug-2010 Intent Sherrie Amor CNP Pulse Oximetry (65385)By: Keesha On: 24-Aug-2010 Intent Ericka TELLEZ Spirometry (45139)By: Al On: 03-Aug-2010 Intent DO Maylin A Comments: good efffort and curve normal EKG (09126)By: Maylin Melendez DO On: 03-Aug-2010 Intent A Comments: ekg showed normal sinus rhythym, normal axis, no acute st/t wave changes poor r wave progression Radiology - Chest- PA and On: 03-Aug-2010 Intent LatBy: Maylin Melendez DO A B 12 Injection, 1000 mcg On: 11-Jul-2010 Intent (J3420)By: Carol Stark LPN Comments: Lot #[id number]-01/20Site-left deltoidDose- 1 mlgiven by: Emili Stark LPN TD Injection , IM ([id number])By: On: 20-Apr-2010 Intent Al MCFARLAND Maylin A Comments: Lot #[id number]/Site-L dtd, IMDose prefilledgiven by: B 12 Injection, 1000 mcg On: 04-Apr-2010 Intent (J3420)By: Carol Stark LPN Comments: Lot #[id number]-left deltoidDose- 1 mlgiven by:[facility] B 12 Injection, 1000 mcg On: 16-Jan-2010 Intent (J3420)By: Carol Reina LPN Comments: Lot #[id number]/Site-R [id number] by: B 12 Injection, 1000 mcg On: 12-Dec-2009 Intent (J3420)By: Carol Stark LPN Comments: Lot #[id number]-06/21Site-left deltoidDose- 1 mlgiven by:[facility] FLU VAC, SPLIT, >3 YEARS, On: 14-Nov-2009 Intent INTRAMUSC ([id number])By: Natalya Kohli ADMINISTRATION OF INFLUENZA On: 14-Nov-2009 Intent VIRUS VACCINE (G0008)By: Comments: Lot #: [id number] date:mount given: 0.5 mlRoute: IMSite given: left deltoid Given by: Lane Romeo, RN Natalya Kohli DXA, BONE DENSITY, AXIAL On: 01-Nov-2009 Intent SKELETON (88840)By: Maylin Melendez DO MAMMOGRAM, SCREENING, BOTH On: 01-Nov-2009 Intent BREASTS (10191)By: Maylin Melendez DO ADMINISTRATION OF PNEUMOCOCCAL On: 01-Nov-2009 Intent VACCINE (G0009)By: Maylin Melendez DO PNEUM VAC ADLT/IMUMNOSPR, On: 01-Nov-2009 Intent SBC/INTRM (38045)By: Maylin Melendez DO B 12 Injection, 1000 mcg On: 01-Nov-2009 Intent (J3420)By: Carol Reina LPN Comments: Lot #[id number]-06/21Site-L dltdDose 30m/mlgiven by:KASIA GONZALES Pneumovax (90845)By: Nuno On: 01-Nov-2009 Intent Carol PEDROZA Comments: Lot #[id number]-August 2010Site-R dltdDose 0.5mlgiven by:KASIA ANDERS B 12 Injection, 1000 mcg On: 25-Aug-2009 Intent (J3420)By: Carol Stark LPN Comments: Lot #[id number]-/Site-left deltoidDose- 1 mlgiven by:[facility] B 12 Injection, 1000 mcg On: 13-Jul-2009 Intent (J3420)By: Monik Rushing Comments: Lot #[id number]/2011Site-left drpyhwdMolo6547nyw/1mlgiven by Diana Rushing LPN CT - ChestBy: Fast DO, Maylin A On: 05-Jun-2009 Intent Spirometry (45540)By: On: 05-Jun-2009 Intent Natalya Kohli Comments: goo deffort and curve mild small airway obst B 12 Injection, 1000 mcg On: 24-May-2009 Intent (J3420)By: Carol Stark LPN Comments: Lot #[id number]-/Site-right deltoidDose- 1 mlgiven by:[facility] Radiology - Knee - Right - On: 23-Dec-2008 Intent Weight BearingBy: Fast DO, Maylin A B 12 Injection, 1000 mcg On: 23-Dec-2008 Intent (J3420)By: Natalya Kohli Comments: Lot #:[id number] date:mount given:1mlRoute: IMSite given:left deltoidGiven by: CHILO Gillespie Aerosol Treatment (51089)By: On: 08-Nov-2008 Intent Natalya Carter Comments: post treatment breath sounds clear bilat. pt. states feels breathing better. Pulse Oximetry (74736)By: On: 08-Nov-2008 Intent Natalya Carter Comments: 95% CT - ChestBy: Fast DO, Maylin A On: 03-Oct-2008 Intent Comments: november Ultrasound - GallbladderBy: On: 15-Sep-2008 Intent Sherrie Amor CNP Ultrasound - Abdomen Complete On: 15-Sep-2008 Intent & PelvisBy: Ciesa RUSTY Carlotta B 12 Injection, 1000 mcg On: 07-Sep-2008 Intent (J3420)By: Mya Barahona Comments: lot #:[id number]:04/2010site:right deltoidGiven by CHILO Roque B 12 Injection, 1000 mcg On: 02-Aug-2008 Intent (J3420)By: Maylin Melendez DO Comments: 1ml given im lt mamie lot [id number] exp 12-20 B 12 Injection, 1000 mcg On: 05-Jul-2008 Intent (J3420)By: Maylin Melendez DO Comments: Lot #[id number]-12/2009Site-left cnhqznrDyqh4862acj/1mlgiven by Diana Rushing LPN CT - Brain/HeadBy: Al MCFARLAND, On: 31-May-2008 Intent Maylin A EKG (20065)By: Maylin Melendez DO On: 10-May-2008 Intent A Comments: ekg showed normal sinus rhythym, leftaxis, nonspecific t changges unchanged fromprevious Echo CompleteBy: Al MCFARLAND, On: 10-May-2008 Intent Maylin A PFT - CompleteBy: Al MCFARLAND, On: 10-May-2008 Intent Maylin A Pulse Oximetry (67927)By: Al On: 10-May-2008 Intent Maylin MCFARLAND Comments: 95 Spirometry (76785)By: Al On: 10-May-2008 Intent Maylin MCFARLAND Comments: good effort and curve mild restriction CT - ChestBy: Maylin Melendez DO On: 10-May-2008 Intent Bio Z (42582)By: Al MCFARLAND, On: 10-May-2008 Intent Maylin A [...] LPN B 12 Injection, 1000 mcg On: 01-Jan-2008 Intent (J3420)By: Monik Rushing Comments: Lot #[id number]-5/10Site-left [id number] by Diana Rushing LPN INJECTION, VITAMIN B-12 On: 03-Dec-2007 Intent CYANOCOBALAMIN, UP TO 1000 Comments: injection given in left deltoid, Ptolerated welllo # [id number] 5/10 MCG (Special Coverage Instructions Apply. See CIM: 45-4 and MCM: 2048) (J3420)By: Irais Monreal B 12 Injection, 1000 mcg On: 26-Nov-2007 Intent (J3420)By: Monik Rushing Comments: Lot #[id number]-5/10Site-left [id number] by Diana Rushing LPN INJECTION, VITAMIN B-12 On: 19-Nov-2007 Intent CYANOCOBALAMIN, UP TO 1000 MCG (Special Coverage Instructions Apply. See CIM: 45-4 and MCM: 2048) (J3420)By: Adriane Muhmamad LPN INJECTION, VITAMIN B-12 On: 12-Nov-2007 Intent CYANOCOBALAMIN, UP TO 1000 MCG (Special Coverage Instructions Apply. See CIM: 45-4 and MCM: 2048) (J3420)By: Adriane Muhammad LPN B 12 Injection, 1000 mcg On: 05-Nov-2007 Intent (J3420)By: Adriane Muhammad LPNid DopplerBy: Al MCFARLAND, On: 30-Oct-2007 Intent Maylin A Spirometry (03969)By: Fast On: 30-Oct-2007 Intent DO Maylin A Comments: good effort and curve- some small airway decrease Radiology - Chest- PA and On: 30-Oct-2007 Intent LatBy: Al DO Maylin A DXA, BONE DENSITY, AXIAL On: 24-Jul-2007 Intent SKELETON ([id number])By: Al MCFARLAND, Comments: postmenopausal without estrogen Maylin A MAMMOGRAM, SCREENING, BOTH On: 24-Jul-2007 Intent BREASTS ([id number])By: Maylin Melendez DO Radiology - Knee - Right - On: 15-Jun-2007 Intent Weight BearingBy: Al MCFARLAND, Comments: call results Maylin Sherman CT - ChestBy: Maylin Melendez DO On: 03-Apr-[address] - ChestBy: Maylin Melendez DO On: 15-Aug-2006 Intent Spirometry (10708)By: Al On: 15-Aug-2006 Intent Maylin MCFARLAND Comments: good effort and curve- mild obstruction EKG (42777)By: Seun On: 15-Aug-2006 Intent Natalya Comments: ekg showed normal sinus rhythym, normal axis, no acute st/t wave changes Radiology - ChestBy: LEE On: 25-Jun-2006 Intent PAMELA OJEDA Comments: PA and LAT Solu- Medrol Injection, 125mg On: 25-Jun-2006 Intent (J2930)By: PAMELA HOWARD CNP Pulse Oximetry (89071)By: On: 25-Jun-2006 Intent PAMELA HOWARD CNP Comments: pt tolerated well. ins waiver signed Aerosol Treatment (52814)By: On: 25-Jun-2006 Intent PAMELA HOWARD CNP Comments: ins wwaiver signed, pt tolerated well Spirometry (69151)By: Al On: 14-May-2006 Intent Maylin MCFARLAND Comments: good effort and curve-mild obstruction ADMINISTRATION OF PNEUMOCOCCAL On: 11-Feb-2006 Intent VACCINE (G0009)By: ULYSSES Quiñones PNEUM VAC ADLT/IMUMNOSPR, On: 11-Feb-2006 Intent SBC/INTRM (21248)By: ULYSSES Quiñones Bio Z (15618)By: Al MCFARLAND, On: 11-Feb-2006 Intent Maylin Sherman Comments: bp was 132/65- cardiac output, svr and thoracic fluid content is normal- will hold on med changes PNEUM VAC ADLT/IMUMNOSPR, On: 11-Feb-2006 Intent SBC/INTRM (77917)By: Maylin Melendez DO ADMINISTRATION OF PNEUMOCOCCAL On: 11-Feb-2006 Intent VACCINE (G0009)By: Maylin Melendez DO MAMMOGRAM, SCREENING, BOTH On: 16-Oct-2005 Intent BREASTS (47301)By: Maylin Melendez DO Planned Medications INJECTION, METHYLPREDNISOLONE SODIUM SUCCINATE, UP TO 125 MG Ordered: 17-Feb-2013 Pending Nia Uriostegui DO DO, Nia INJECTION, METHYLPREDNISOLONE SODIUM SUCCINATE, UP TO 125 MG Ordered: 31-Jan-2014 Pending Mt OJEDA, Carlotta INJECTION, METHYLPREDNISOLONE SODIUM SUCCINATE, UP TO 125 MG Ordered: 24-Aug-2010 Pending Mt OJEDA, Carlotta INJECTION, METHYLPREDNISOLONE SODIUM SUCCINATE, UP TO 125 MG Ordered: 22-Feb-2014 Pending Fast DO, Maylin A INJECTION, METHYLPREDNISOLONE SODIUM SUCCINATE, UP TO 125 MG Ordered: 27-Feb-2016 Pending Balbir Cramer MD INJECTION, METHYLPREDNISOLONE SODIUM SUCCINATE, UP TO 125 MG Ordered: 16-Jan-2016 Pending Balbir Cramer MD INJECTION, METHYLPREDNISOLONE SODIUM SUCCINATE, UP TO 125 MG Ordered: 21-Jun-2013 Pending Mt OJEDA Sherrie Beck Vitamin B-12 1000 MCG/ML Injection Solution Ordered: 12-Dec-2009 Pending Carol Stark LPN Vitamin B-12 1000 MCG/ML Injection Solution Ordered: 21-Jan-2014 Pending Fast DO, Maylin A Vitamin B-12 1000 MCG/ML Injection Solution Ordered: 11-Apr-2014 Pending Jason PEDROZA Kaci Vitamin B-12 1000 MCG/ML Injection Solution Ordered: [...] Injection Solution Ordered: 24-Apr-2016 Pending Nia Uriostegui DO DO, Nia Vitamin B-12 1000 MCG/ML Injection Solution Ordered: 08-Aug-2016 Pending Nia Uriostegui DO DO, Nia Vitamin B-12 1000 MCG/ML Injection [...] MCG/ML Injection Solution Ordered: 16-Jan-2010 Pending Long INDIVIDUALIZED EDUCATION PLAN AIDE, Carol L Vitamin B-12 1000 MCG/ML Injection Solution Ordered: 04-Apr-2010 Pending Hluszti INDIVIDUALIZED EDUCATION PLAN AIDE, Carol Vitamin B-12 1000 MCG/ML Injection Solution Ordered: 11-Jul-2010 Pending Hluszti INDIVIDUALIZED EDUCATION PLAN AIDE, Carol Vitamin B-12 1000 MCG/ML Injection Solution Ordered: 21-Nov-2010 Pending Long INDIVIDUALIZED EDUCATION PLAN AIDE, Carol L Vitamin B-12 1000 MCG/ML Injection Solution Ordered: 14-Jan-2011 Pending Natalya Kohli Vitamin B-12 1000 MCG/ML Injection Solution Ordered: 15-Feb-2011 Pending Long INDIVIDUALIZED EDUCATION PLAN AIDE, Carol L Vitamin B-12 1000 MCG/ML Injection Solution Ordered: 18-Mar-2011 Pending Hluszti INDIVIDUALIZED EDUCATION PLAN AIDE, Carol Vitamin B-12 1000 MCG/ML Injection Solution Ordered: 16-Apr-2011 Pending Ericka Thao RN Vitamin B-12 1000 MCG/ML Injection Solution Ordered: 23-May-2011 Pending Mast RNEricka Vitamin B-12 1000 MCG/ML Injection Solution Ordered: 22-Jul-2011 Pending Hluszti INDIVIDUALIZED EDUCATION PLAN AIDE, Carol Vitamin B-12 1000 MCG/ML Injection Solution Ordered: 17-Sep-2011 Pending Tiffany Kohlinifer Vitamin B-12 1000 MCG/ML Injection Solution Ordered: 29-Oct-2011 Pending Natalya Kohli Vitamin B-12 1000 MCG/ML [...] 1000 MCG/ML Injection Solution Ordered: 18-Aug-2013 Pending Al DO, Maylin A Vitamin B-12 [...] Reason for ER visit: note: (afib in [facility] from sat till wed). The [...] in friday for afib and out and frin a=in [place] for not breathing well. The [...] well. Patient has been compliant with instructions. Bailey End: 04-Apr-2015 23:22 t medication use: no [...] SOB. 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 The patient has noticed nothing from the geriatic depression scale. Other providers contributing to the patient's care are kettle cook, gastrologist nora beth other: (neurologist). Note for Annual Medicare Exam: [...] medical issues: had damaris maneuver today at [employer] and helped some so far - her [...] and then felt like was shaking- called jesusita and her heart rate was over 200 [...] it is helping- she [facility] encoruage , [ADDITIONAL REASON] Follow up, [...] (coughing more since the change) and Dr Ignacio changed Crestor to Pravastatin d/t leg cramps.). 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 The patient feels well with no complaints [...] be panic or anxiety- she was at [employer] a few mos ago and he had [...] now not as badEncounter Diagnosis: Knee pain (849.46) [facility] Office Visit On: 03-Apr-2007 [...]
--- OUTSIDE RECORDS SUMMARY | 2018-02-18 04:34 | XMS RPT_ITS | Continuity of Care Document ---
:1940 Author Organization [facility] Address [address] [place] [address] Phone Care Team Providers Name Role Phone Nia Uriostegui DO Unavailable Je Rodriguez Unavailable Dr. Christopher Alfonso Unavailable Mariely Monreal Unavailable Messenger, BEAM HOUSE INSPECTOR Susie Unavailable Unavailable Long BEAM HOUSE INSPECTORCarol Unavailable Unavailable Unavailable Unavailable Problems Name Dates [...] (Z86.010, V12.72) Comments: Colonoscopy 06/09/12, 5 years, Rxmien0837- adenoma- repeat in 5 years Status: Active [...] meninges (D42.9, 237.6) Comments: Dr Rivas in [place], 09/25, does MRI every year , not [...] Lopez LPN Start : 31-Jul-2016 Active [place] 5/16 31G X 8 MM Miscellaneous 1 [...] End : 07-Nov-2016 Inactive VITAMIN D (ERGOCALCIFEROL), 96535UHYH (Oral Capsule) 1 cap once a week (90178 UNIT) Inactive Vitamin D3 01309 UNIT Oral Tablet 1 (one) Tablet weekly [...] : 01-Nov-2009 Discontinued Comments:This order discontinued per [facility]. AMLODIPINE BESYLATE, 5MG (Oral Tablet) 1 Tablet qd for 0 days Quantity: 30 {Tablet} Refills: 3 Ordered:18-Dec-2012 Maylni Melendez DO Start : 18-Dec-2012 End : [...] days Quantity: 30 {Tablet} Refills: 0 Ordered:18-Dec-2012 Myalin Melendez DO Start : 18-Dec-2012 End : [...] : 17-Apr-2012 End : 17-Apr-2012 Discontinued ERGOCALCIFEROL, 34969HZDY (Oral Capsule) 1 (one) Capsule q week [...] switch to her tradjenta VITAMIN D (ERGOCALCIFEROL), 33095DYPA (Oral Capsule) 1 Capsule twice a week [...] related so will get [facility] Status: Inactive as of 24-Apr-2016 Unspecified Diagnosis [...] US, Limited Result: Comments: See Note; NOTES: [facility] Cardiovascular Services [address] [place] [address] Art Duplex US Unilat Lower Ext 12/12/17 1304 MR#: [id number] Acct: [id number] Name: COMFORT OLSON Rep #: [id number] : 1940 77 From: Je Ceron MD Attending Dr: Je Ceron MD Status: REG CLI Ordering Dr: Je Ceron MD Date: 12/12/17 Location: [facility] Sex: F C Admitted: Reason For Study: RT Groin pseudoanerysm thrombin injection Right Velocities Rt groin pseudoaneurysm successfully thrombosed s/p thrombin injection. Normal color flow and doppler signal DIRECTOR PHONE and FV. P rocedure Exam performed in department. Interpretation Summary Successful thrombosis right femoral pseudoaneurysm __ Ordering Physician: Je Ceron Performed By: Sanaz Sheth RVT 12/12/17 1404 Date Je Ceron MD CC: Nia Uriostegui DO; Je Ceron MD Date Dictated: 12/12/17 1304 Date Transcribed: 12/12/17 1404 Aquatics Lifeguard: Signed 12-Dec-2017 Operative Report Result: Comments: See Note; NOTES: [facility] Medical Records Department [address] [place] [address] Operative Report 12/12/17 1359 MR#: [id number] Acct: [id number] Name: COMFORT OLSON Rep #: [id number] : 1940 77 From: Je Ceron MD [...] Visit Report Result: Comments: See Note; NOTES: 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 Greene. Patient is about 10 days out. She complained of swelling and pain. She presented to Dr. Richmond's office yesterday. A ultrasound was obtained. This demonstrates a 2 cm pseudoaneurysm in the [facility] groin but there is additional concern [...] Visit Report Result: Comments: See Note; NOTES: [place] [address] [place] [address] OFFICE VISIT Date of Service: 12/11/17 MR#: [id number] Acct: [id number] Patient: COMFORT OLSON Rep #: [id number] : 1940 Provider: Jonel Rashid MD Age/Sex: 77/F Location: [facility] Status: Signed Intake Intake Visit Reasons: [...] PO BID 08/24/17 [History Confirmed 10/31/17] Methscopolamine [place] 5 mg PO BID 08/24/17 [History Confirmed [...] -MATTIE Extrem Result: Comments: See Note; NOTES: [facility] Cardiovascular Services [address] [place] [address] Art Duplex US Bilat Lower Ext 12/11/17 1408 MR#: [id number] Acct: [id number] Name: COMFORT OLSON Rep #: [id number] : 1940 77 From: Je Ceron MD Attending Dr: Annemarie Parsons Status: REG CLI Ordering Dr: Jonel Rashid MD Date: 12/11/17 Location: [facility] Sex: F C Admitted: Reason For Study: Rt groin pain/ecchymosis - Right Velocities Left Velocities RT DIRECTOR PHONE - 1.2 x 1.2 cm with a velocity of 159.0 LT DIRECTOR PHONE - .88 x .83 cm with a [...] Parsons Performed By: Sanaz Sheth RVT 12/11/17 7109 Date Je Ceron MD CC: Jonel Rashid MD; Nia Uriostegui DO; [facility] des Parsons Date Dictated: 12/11/17 1408 Date Transcribed: 12/11/171818 Aquatics Lifeguard: Signed 04-Nov-2017 Operative Report Result: Comments: See Note; NOTES: [facility] Medical Records Department [address] [place] [address] Operative Report 11/03/17 1228 MR#: [id number] Acct: [id number] Name: COMFORT OLSON Rep #: [id number] : 1940 76 From: Patrick Ellsworth MD PCP: Nia Uriostegui DO Status: DEP [facility] Y Location: [facility] Problem List (1) New onset atrial flutter Status: Acute (2) Atherosclerotic heart disease of [place] coronary artery without angina pectoris Status: Chronic Qualifiers: [place] vs. transplanted heart: [place] heart Qualified Code(s): I25.10 - Atherosclerotic heart disease of [place] nitin nary artery without angina pectoris Comment: 08/06/2004 CABG x2 VILLAGRAN side to side to second Diagonal and end to side to Anterior Descending artery in Sequential fashion. [facility]: 08/01/2004; 10/15/2011 (3) Cardiomyopathy in diseases [...] is a 76-year-old female who presented to [facility] for an elective outpat ient cardioversion [...] Visit 9xxxx: Other Procedure See Report - [id number] 11/04/17 0525 <Electronically signed by Patrick Ellsworth MD> Date Patrick Ellsworth MD CC: Patrick Ellsworth MD; Jonel Rashid MD; Nia Uriostegui DO Signed 03-Nov-2017 Operative Report Result: Comments: See Note; NOTES: [facility] Medical Records Department [address] [place] [address] Operative Report 11/03/174 MR#: [id number] Acct: [id number] Name: COMFORT OLSON Rep #: [id number] : 1940 76 From: Jonel Rashid MD [...] Visit Report Result: Comments: See Note; NOTES: [facility] [address] [place] [address] OFFICE VISIT Date of Service: 10/08/17 MR#: [id number] Acct: [id number] Name: COMFORT OLSON Re p #: [id number] : 1940 Provider: Jonel Rashid MD Age/Sex: 76/F Location: [facility] Status: Signed HPI HPI Chief Complaint: [...] 70 Intake Visit Reasons: ER 8-20 per CATERING MANAGER Allergies No Known Allergies Allergy (Verified 10/08/17 [...] PO BID 08/24/17 [History Confirmed 10/05/17] Methscopolamine [place] 5 mg P O BID 08/24/17 [History [...] atrial fibrillation (Chronic) Atherosclerotic heart disease of [place] coronary artery without angina pectoris (Chronic) HLD [...] fibrillation ablation. Arrangements were [facility] at [facility] for the above to be considered. In [...] bundle branch block. 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 (script editor) Coding Level of Care Code Off [...] Lead Electrocardiogram Result: Comments: See Note; NOTES: [facility] Cardiovascular Services [address] [place] [address] 12 Lead EKG 10/05/17 0149 MR#: [id number] Acct: [id number] Name: COMFORT OLSON Rep # : [id number] : 1940 76 From: Jonel Rashid MD [...] ECG Confirmed by JONEL RASHID MD ([id number]), deputy editor in chief AMIRA CASTRO ([id number]) on 10/07/2017 2:45:19 PM Referred By: Jonel Rashid Confirmed By:JONEL RASHID MD 10/07/17 4735 Date _ Jonel Rashid MD CC: Emery Allen MD; Nia Uriostegui DO Signed 07-Oct-2017 12 Lead Electrocardiogram Result: Comments: See Note; NOTES: [facility] Cardiovascular Services [address] [place] [address] 12 Lead EKG 10/05/17 0333 MR#: [id number] Acct: [id number] Name: COMFORT OLSON Rep # : [id number] : 1940 76 From: Jonel Rashid MD [...] ECG Confirmed by JONEL RASHID MD ([id number]), deputy editor in chief AMIRA CASTRO ([id number]) on 10/07/2017 2:42:56 PM Referred By: Kathleen Rashid Confirmed By:JONEL RASHID MD 10/07/17 1442 Date Jonel Rashid MD CC: Emery Allen MD; Nia Uriostegui DO Signed 05-Oct-2017 Discharge Instruction Result: Comments: See Note; NOTES: [facility] Medical Records Department [address] [place] [address] Discharge Instruction 10/05/17 0440 MR#: [id number] Acct: [id number] Name: Liyah OLSON Rep #: [id number] : 1940 76 From: Emery Allen MD [...] Primary Care Provi latrell. Call [facility] ([phone]) or report to the closest Emergency Room. Call 911 if necessary. 10/05/17 0528 <Electronically signed by Emery Allen MD> Date ____ Emery Allen MD Cosigner Signature (If Indicated): Date CC: Nia Uriostegui DO 05-Oct-2017 Emergency Department Summary Result: Comments: See Note; NOTES: [facility] Medical Records Department [address] [place] [address] Emergency Department Summary 10/05/17 0435 MR#: [id number] Acct: [id number] Name: COMFORT OLSON Rep #: [id number] : 1940 76 From: Emery Allen MD [...] flutter This not e was generated with CLEAR dictation software. It may contain incorrect words, spelling, and punctuation that were not noted in review of the chart prior to signing ED Disposition - Plan for ED Clarice ent: Chief Complaint: Palpitations Referrals: iNa Uriostegui, DO [Primary Care Provider] - What to do if you have Problems For any increased pain, shortness of breath, bleeding, nausea or vomiting, chest pain, or any unexpected problems, contact your Primary Care Provider. Call [facility] ([phone]) or report to the closest Emergency Room. Call 911 if necessary. 10/05/17 0528 &#60 ;Electronically signed by Emery Allen MD> Date Emery Allen MD Cosigner Signature (If Indicated): Date CC: Nia Uriostegui DO 05-Oct-2017 Chest 1 View (Portable) Result: Comments: See Note; NOTES: [facility] Imaging Services [address] [place] [address] Chest 1 View (Portable) MR#: [id number] Acct: [id number] Name: COMFORT OLSON Rep #: [id number] : 1940 F 76 From: Chris Dwyer MD PCP: Nia Uriostegui DO Status: REG ER Study: Chest 1 View (Portable) Date of Exam: 10/05/17 Exam# [id number] Ordering Dr: Emery Allen MD STUDY: X-R [...] of the upper abdomen. ORDER # : [id number] RAD/Chest 1 View (Portable) IMPRESSION: Mild cardiomegaly. Minimal persistent left basilar atelectasis. No evidence for acute cardiopulmonary pathology. Electronically Signed: Chris Dwyer MD at 2:42 EDT , Service support , CC: Emery Allen MD; Nia Uriostegui DO Aquatics Lifeguard: Signed 03-Oct-2017 12 Lead Electrocardiogram Result: Comments: See Note; NOTES: [facility] Cardiovascular Services [address] [place] [address] 12 Lead EKG 10/02/17 1353 MR#: [id number] Acct: [id number] Name: COMFORT OLSON Rep # : [id number] : 1940 76 From: Jonel Rashid MD [...] ECG Confirmed by JONEL RASHID MD ([id number]), deputy editor in chief AMIRA CASTRO ([id number]) on 10/03/2017 1:43:28 PM Referred By: Jonel Rashid Confirmed By:USMAN RASHID MD 10/03/17 1343 Date Jonel Rashid MD CC: JOSSELYN Lombardo; Jonel Rashid MD; Nia Uriostegui DO Signed 02-Oct-2017 Echo, Complete w/ Contrast Result: Comments: See Note; NOTES: [facility] Cardiovascular Services [address] [place] [address] Echo Complete W/ Contrast 10/02/17 1250 MR#: [id number] Acct: [id number] Name: COMFORT JONES Rep #: [id number] : 1940 76 From: Jonel Rashid MD Attending Dr: Gay ROSAS,Jonel Status: REG CLI Ordering Dr: Jonel Rashid MD Date: 10/02/17 Location: [facility] Sex: F C Admitted: Reason Fo [...] Date Dictated: 10/02/17 1250 Date Transcribed: 10/02/171742 Aquatics Lifeguard: Signed 02-Oct-2017 12 Lead Electrocardiogram Result: Comments: See Note; NOTES: [facility] Cardiovascular Services [address] [place] [address] 12 Lead EKG 09/29/17 1035 MR#: [id number] Acct: [id number] Name: COMFORT OLSON Rep # : [id number] : 1940 76 From: Antonio Tovar MD [...] ECG Confirmed by ZARA ROSAS, ANTONIO ([id number]), deputy editor in chief AMIRA CASTRO (56) on 10/02/2017 1:30:21 PM Refer red By: BOZENA Confirmed By:ANTONIO TOVAR MD 10/02/17 1330 Date Antonio Tovar MD CC: Nia Uriostegui DO; Jignesh Tello MD Signed 02-Oct-2017 12 Lead Electrocardiogram Result: Comments: See Note; NOTES: [facility] Cardiovascular Services [address] [facility] [place] [address] 12 Lead EKG 09/29/17 1020 MR#: [id number] Acct: [id number] Name: COMFORT OLSON Rep # : [id number] : 1940 76 From: Antonio Tovar MD [...] Abnormal ECG Confirmed by ANTONIO TOVAR MD ([id number]), AMIRA Roldan ([id number]) on 10/02/2017 1:27:54 PM Referred By: BOZENA Confirmed By:ANTONIO TOVAR MD 10/02/17 1327 Date Antonio Tovar MD CC: Nia Uriostegui DO; Jignesh Tello MD Signed 02-Oct-2017 12 Lead Electrocardiogram Result: Comments: See Note; NOTES: [facility] Cardiovascular Services [address] [place] [address] 12 Lead EKG 09/29/17 0905 MR#: [id number] Acct: [id number] Name: COMFORT OLSON Rep # : [id number] : 1940 76 From: Antonio Tovar MD [...] Abnormal ECG Confirmed by ANTONIO TOVAR MD ([id number]), deputy editor in chief AMIRA CASTRO ([id number]) on 10/02/2017 1:27:13 PM Referred By: BOZENA Anne d By:ANTONIO TOVAR MD 10/02/17 1327 Date Antonio Tovar MD CC: Nia Uriostegui DO; Jignesh Tello MD Signed 02-Oct-2017 12 Lead Electrocardiogram Result: Comments: See Note; NOTES: [facility] Cardiovascular Services [address] [place] [address] 12 Lead EKG 09/29/17 0926 MR#: [id number] Acct: [id number] Name: COMFORT OLSON Rep # : [id number] : 1940 76 From: Antonio Tovar MD [...] ECG Confirmed by ZARA ROSAS, ANTONIO ([id number]), deputy editor in chief AMIRA CASTRO (56) on 10/02/2017 1:26:27 PM Referr ed By: BOZENA Confirmed By:ANTONIO TOVAR MD 10/02/171325 Date Antonio Tovar MD CC: Nia Uriostegui DO; Jignesh Tello MD Signed 29-Sep-2017 Emergency Department Summary Result: Comments: See Note; NOTES: [facility] Medical Records Department [address] [place] [address] Emergency Department Summary 09/29/17 0912 MR#: [id number] Acct: [id number] Name: COMFORT OLSON Rep #: [id number] : 1940 76 From: Jignesh Tello MD [...] Sinus bradycardia. This note was generated with CLEAR dictation software. It may contain incorrect words, [...] problems, contact your Primary Care Provider. Call [facility] ([phone]) or report to the closest Emergency Room. Call 911 if necessary. 09/29/17 4542 <Electronically si gned by Jignesh Tello MD> Date Jignesh Tello MD Cosigner Signature (If Indicated): Date CC: Nia Uriostegui DO 29-Sep-2017 Chest 1 View (Portable) Result: Comments: See Note; NOTES: [facility] Imaging Services [address] [place] [address] Chest 1 View (Portable) MR#: [id number] Acct: [id number] Name: COMFORT OLSON Rep #: [id number] : 1940 F 76 From: John Babcock MD PCP: Nia Uriostegui DO Status: REG ER Study: Chest 1 View (Portable) Date of Exam: 09/29/17 Exam# [id number] Ordering Dr: Jignesh Tello MD STUDY: X-RAY [...] John Babcock MD at 9:55 EDT Tel [phone], Service support , CC: Nia Uriostegui DO; Jignesh Tello MD Aquatics Lifeguard: Signed 25-Sep-2017 Cardiology Visit Report Result: Comments: See Note; NOTES: [facility] [address] [place] [address] OFFICE VISIT Date of Service: 09/25/17 MR#: [id number] Acct: [id number] Name: COMFORT OLSON p #: [id number] : 1940 Provider: Jonel Rashid MD Age/Sex: 76/F Location: [facility] Status: Signed HPI HPI Chief Complaint: [...] brachial Intake Visit Reasons: 6 M FU Pharmaceutical Salesperson Required: No Accompanied by: nonw Is patient [...] BID 08/24/17 [History Confirmed 09/25/17] Met hscopolamine [place] 5 mg PO BID 08/24/17 [History Confirmed [...] PO QDAY tab 09/25/17 [History Confirmed 09/25/17] [facility] Medical History Other secondary pulmonary hypertension (Chronic) Cardiomyopathy in diseases classified elsewhere (Chronic) Other cerebral infarction (Chronic) Paroxysmal atrial fibrillation (Chroni c) Atrial enlargement, 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 4. Atherosclerosis of [place] coronary artery of [place] heart without angina pectoris I25.10 08/06/2004 CA BG x2 VILLAGRAN side to side to second Diagonal and end to side to Anterior Descending artery in Sequential fashion. [facility]: 08/01/2004; 10/15/2011 Plan She does have [...] Other Medications New: Follow Up 6 Months (script editor) Coding Level of Care Code Off vis,est,level 4 Diagnoses Paroxysmal atrial fibrillation I48.0 Cardiomyopathy in diseases c lassified elsewhere I43 Essential hypertension I10 Hypertension type: essential hypertension Atherosclerosis of [place] coronary artery of [place] heart without angina pectoris I25.10 [place] vs. transplan joel heart: [place] heart Mixed hyperlipidemia E78.2 Hyperlipidemia type: mixed hyperlipidemia Coding Level of Care Code Off vis,est,level 4 Diagnoses Paroxysmal atrial fibrillation I48.0 Cardiomyopath y in diseases classified elsewhere I43 Essential hypertension I10 Hypertension type: essential hypertension Atherosclerosis of [place] coronary artery of [place] heart without angina pectoris I25.10 [place] vs. transplanted heart: [place] heart Mixed hyperlipidemia E78.2 Hyperlipidemia type: mixed hyperlipidemia 09/25/17 1029 <Electronically signed by Jonel Rashid MD> Date __ Jonel Rashid MD Cosigner Signature: Date (if applicable) CC: Nia Uriostegui DO 26-Aug-2017 12 Lead Electrocardiogram Result: Comments: See Note; NOTES: [facility] Cardiovascular Services [address] [place] [address] 12 Lead EKG 08/24/17 1336 MR#: [id number] Acct: [id number] Name: COMFORT OLSON Rep # : [id number] : 1940 76 From: Jonel Rashid MD [...] ECG Confirmed by JONEL RASHID MD ([id number]), deputy editor in chief AMIRA CASTRO (56) on 08/26/2017 1:37:24 PM Referred B y: YONI Confirmed By:JONEL RASHID MD 08/26/17 1337 Date Jonel Rashid MD CC: Nia Uriostegui DO; Alexis Kemp MD Signed 26-Aug-2017 12 Lead Electrocardiogram Result: Comments: See Note; NOTES: [facility] Cardiovascular Services [address] [place] [address] 12 Lead EKG 08/24/17 0956 MR#: [id number] Acct: [id number] Name: COMFORT OLSON Rep # : [id number] : 1940 76 From: Jonel Rashid MD [...] ECG Confirmed by GAY ROSAS, JONEL ([id number]), deputy editor in chief AMIRA CASTRO ([id number]) on 08/26/2017 12:50:18 PM Referred By: YONI Confirmed By:JONEL RASHID MD 08/26/17 1250 Date Jonel Rashid MD CC: Nia Uriostegui DO; Alexis Kemp MD Signed 24-Aug-2017 Emergency Department Summary Result: Comments: See Note; NOTES: [facility] Medical Records Department [address] [place] [address] Emergency Department Summary 08/24/17 1336 MR#: [id number] Acct: [id number] Name: COMFORT OLSON Rep #: [id number] : 1940 76 From: Alexis Kemp MD [...] coronary disease This note was generated with CLEAR dictation software. It may contain in correct [...] your Primary Care Provider. Call [facility] ([phone]) or report to the [facility] Emergency Room. Call 911 if necessary. 08/24/17 1340 <Electronically signed by Alexis Kemp MD> Date Alexis Villasenor Signdanutau re (If Indicated): Date CC: Jonel Rashid MD; Nia Uriostegui DO 24-Aug-2017 Chest PA and Lateral Result: Comments: See Note; NOTES: [facility] Imaging Services [address] [place] [address] Chest PA and Lateral MR#: [id number] Acct: [id number] Name: COMFORT OLSON Rep #: [id number] : 1940 F 76 From: Clyde Matute MD PCP: Nia Uriostegui DO Status: REG ER Study: Chest PA and Lateral Date of Exam: 08/24/17 Exam# [id number] Ordering Dr: Alexis Kemp MD STUDY: X-RAY [...] CC: Nia Uriostegui DO; Alexis Kemp MD Aquatics Lifeguard: Signed 02-Jun-2017 12 Lead EKG performed by [facility] Result: Comments: See Note; NOTES: [facility] [address] [place] [address] 12 Lead EKG performed by [facility] 06/02/17 1121 MR#: [id number] Acct: [id number] Name: COMFORT OLSON Rep #: [id number] : 1940 76 From: Annemarie BLOOD Attending Dr: Annemarie Parsons Status: DEP AMB Ordering Dr: Annemarie Parsons Date: 06/02/17 Location: [facility] Sex: F C Admitted: [facility]/12 Lead EKG performed by [facility] ECG Report Interpretation Sinus Rhythm -Intraventricular conduction defect and left axis -possible anterior fas cicular block consider ventricular hypertrophy. - Nonspecific T-abnormality. ABNORMAL Electronically signed on 06/04/2017 at 14:14 by Jonel Rashid 06/04/17 1415 Date Annemarie BLOOD CC: Nia Uriostegui DO Date Dictated: 06/02/17 112 Date Transcribed: 06/02/171120 Aquatics Lifeguard: BARBY Signed 29-May-2017 Cardiology Visit Report Result: Comments: See Note; NOTES: [facility] [address] [place], [place] [address]. [address] [place] [address] OFFICE VISIT Date of Service: 05/26/17 MR#: [id number] Acct: [id number] Name: COMFORT OLSON Re p #: [id number] : 1940 Provider: Annemarie Parsons Age/Sex: 76/F Location: [facility] Status: Signed HPI HPI Details: COMFORT [...] surgery in 2004. She had an VILLAGRAN llrw-ed-nuob to second diagonal and to anterior descending and septal fas hion. She also has a history of atrial fibrillation with RVR. She has not been on an antiarrhythmic until recently due to her asthma. She is not on an anticoagulant due to her history of meningioma. Pt was in the hospital in April for AF with RVR. She was did have a OLIVRE cardioversion. She was not put on an [...] (BMI) 33.3 Intake Visit Reasons: per Susi Pharmaceutical Salesperson Required: No Accompanied by: NONE Is patient [...] PO DAILY 11/11/16 [History Confirmed 05/26/17] Methscopolamine [place] 5 mg PO BID 11/11/16 [History Confirmed [...] enlargement, left (Chronic) Atherosclerotic heart disease of [place] coronary artery without angina pectoris (Chronic) HTN [...] week for an EKG. 2. Atherosclerosis of [place] coronary artery of [place] heart without angina pectoris I25.10 08/06/2004 CABG x2 VILLAGRAN side to side to second Diagonal and end to side to Anterior [place] cending artery in Sequential fashion. [facility]: 08/01/2004; 10/15/2011 Plan - JEREMI Mcpherson [...] 1 Week (EKG) 05/26/17 (keep appt with CATERING MANAGER) Coding Level of Care Code Off vis,est,level 4 Diagnos es Dyspnea on exertion R06.09 Atherosclerosis of [place] coronary artery of [place] heart without angina pectoris I25.10 [place] vs. transplanted heart: [place] heart Essential hypertension I10 Hypertension type: essential hypertension Mixed hyperlipidemia E78.2 Hyperlipidemia type: mixed hyperlipidemia Paroxysmal atrial fibrillation I48.0 Atrial fibrillation type: paroxysmal Coding Level of Care Code O ff vis,est,level 4 Diagnoses Dyspnea on exertion R06.09 Atherosclerosis of [place] coronary artery of [place] heart without angina pectoris I25.10 [place] vs. transplanted heart: [place] heart Essential hy pertension I10 Hypertension type: [...] CARLOS EDUARDO Result: Comments: See Note; NOTES: [facility] [address] [place] [address] 12 Lead EKG performed by CARLOS EDUARDO 05/26/17 1521 MR#: [id number] Acct: [id number] Name: COMFORT OLSON Rep #: [id number] : 1940 76 From: Annemarie BLOOD Attending Dr: Annemarie Parsons Status: DEP AMB Ordering Dr: Annemarie Parsons Date: 05/26/17 [place] [facility] [place] F C Admitted: [facility]/12 Lead EKG performed by [facility] ECG Report Interpretation Marked sinus Bradycardia -Poor R-wave progression - nonspecific -consider old anterior infarct. -Nonspecific ST depression -Nondiagnostic. ABNORMAL Electronically signed on 05/27/2017 at 08:40 by Jonel Rashid 05/27/17 0841 Date Annemarie BLOOD CC: Nia Uriostegui DO Date Dictated: 05/26/17 1521 Date Transcribed: 05/26/17 152 Aquatics Lifeguard: BARBY Signed 16-May-2017 Office Visit Report Result: Comments: See Note; NOTES: [address] [address] OFFICE VISIT Date of Service: 05/16/17 MR#: [id number] Acct: [id number] Patient: COMFORT OLSON Rep #: [id number] : 1940 Provider: Jonel Rashid MD Age/Sex: 76/F [place] [facility] [place]: Signed Intake Intake Visit Reasons: EKG [...] SON Y 11/11/16 [History Confirmed 05/14/17] Methscopolamine [place] 5 mg PO BID 11/11/16 [History Confirmed [...] Orozco 16-May-2017 12 Lead EKG performed by [facility] Result: Comments: See Note; NOTES: [facility] [address] [place] [address] 12 Lead EKG performed by [facility] 05/16/171043 MR#: [id number] Acct: [id number] Name: COMFORT OLSON Rep #: [id number] : 1940 76 From: Annemarie BLOOD Attending Dr: Jonel Rashid MD Status: DEP AMB Ordering Dr: Annemarie Parsons Date: 05/16/17 Location: [facility] Sex: F C Adm itted: [facility]/12 Lead EKG performed by [facility] Sinus Bradycardia -Poor R-wave progression -may be secondary to pulmonary isease consider old anterior infarct. Rightward P/QRS axis and rota tion possible pulmonary disease. ABNORMAL 05/16/171649 <Electronically signed by Annemarie BLOOD> Date Annemarie BLOOD CC: Nia Uriostegui DO Date Dictated: 05/16/171043 Date Transcribed: 05/16/171043 Aquatics Lifeguard: BARBY Signed 16-May-2017 12 Lead EKG performed by [facility] Result: Comments: See Note; NOTES: [facility] [address] [place] [address] 12 Lead EKG performed by [facility] 05/16/17 1044 MR#: [id number] Acct: [id number] Name: COMFORT OLSON Rep #: [id number] : 1940 76 From: Annemarie BLOOD Attending Dr: Jonel Rashid MD Status: DEP AMB Ordering Dr: Annemarie Parsons Date: 05/16/17 Location: [facility] Sex: F C Adm itted: BMS/12 Lead EKG performed by [facility] ECG Report Interpretation Sinus Bradycardia -Poor R-wave progression -may be secondary to pulmonary disease conside r old anterior infarct. Rightward P/QRS axis and rotation -possible pulmonary disease. ABNORMAL Electronically signed on 05/17/2017 at 18:31 by Jonel Rashid 05/17/17 1834 Date Annemarie BLOOD CC: Nia Uriostegui DO Date Dictated: 05/16/17 1044 Date Transcribed: 05/16/171043 Aquatics Lifeguard: BARBY Signed 14-May-2017 Cardiology Visit Report Result: Comments: See Note; NOTES: [facility] [address] [place] [address] OFFICE VISIT Date of Service: 05/14/17 MR#: [id number] Acct: [id number] Name: COMFORT OLSON Re p #: [id number] : 1940 Provider: Annemarie Parsons Age/Sex: 76/F Location: [facility] Status: Signed HPI HPI Details: COMFORT OLSON, is a 76 F who presents to the office today for an urgent appointm ent for increased shortness of breath. Patient does have a hospital of coronary artery disease with bypass surgery in 2004. 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 Ath erosclerosis of [place] coronary artery of [place] heart without angina pectoris I25.10 08/06/2004 CABG [...] Diagnoses Paroxysmal atrial fibrillation I48.0 Atherosclerosis of [place] coronary artery of [place] heart without angina pectoris I25.10 [place] vs. transplanted heart: [place] heart Essential hy pertension I10 Hypertension type: essential hypertension Mixed hyperlipidemia E78.2 Hyperlipidemia type: mixed hyperlipidemia Coding Level of Care Code Off vis,est,level 4 Diagnoses Paroxysmal atrial fibrillation I48.0 Atherosclerosis of [place] coronary artery of [place] heart without angina pectoris I25.10 [place] vs. transplanted heart: [place] heart Essential hypertension I10 Hypertension type: ess ential hypertension Mixed hyperlipidemia E78.2 Hyperlipidemia type: mixed hyperlipidemia 05/14/17 1718 <Electronically signed by Annemarie BLOOD> Date Annemarie BLOOD 05/14/17 1732<Electronically signed by Jonel Rashid MD> Cosigner Signature: Date (if applicable) Jonel Rashid MD CC: Nia Uriostegui 14-May-2017 12 Lead EKG performed by [facility] Result: Comments: See Note; NOTES: [facility] [address] [place] [address] 12 Lead EKG performed by [facility] 05/14/17 1104 MR#: [id number] Acct: [id number] Name: COMFORT OLSON Rep #: [id number] : 1940 76 From: Annemarie BLOOD Attending Dr: Annemarie Parsons Status: DEP AMB Ordering Dr: Annemarie Parsons Date: 05/14/17 Location: [facility] Sex: F C Admitted: BMS/12 Lead EKG performed by [facility] Marked sinus Bradycardia -Intraventricular conduction defect -consider left entricular hypertrophy. -Lateral infarct -age undetermined. - -abnormality -Possible Inferior and lateral ischemia. ABNORMAL 05/15/17 1041 <Electronically signed by Annemarie BLOOD> Date M farhan BLOOD CC: Nia Uriostegui DO Date Dictated: 05/14/171103 Date Transcribed: 05/14/171103 Aquatics Lifeguard: BARBY Signed 14-May-2017 12 Lead EKG performed by [facility] Result: Comments: See Note; NOTES: [facility] [address] [place] [address] 12 Lead EKG performed by [facility] 05/14/171103 MR#: [id number] Acct: [id number] Name: COMFORT OLSON Rep #: [id number] : 1940 76 From: Annemarie BLOOD Attending Dr: Annemarie Parsons Status: DEP AMB Ordering Dr: Annemarie Parsons Date: 05/14/17 Location: [facility] Sex: F C Admitted: BMS/12 Lead EKG performed by [facility] ECG Report Interpretation Marked sinus Bradycardia -Intraventricular conduction defect -consider left ventricul ar hypertrophy. -Lateral infarct -age undetermined. - T-abnormality -Possible Inferior and lateral ischemia. ABNORMAL Electronically signed on 05/17/2017 at 18:31 by Jonel Rashid 05/17/17 1834 Date __ Annemarie BLOOD CC: Nia Uriostegui DO Date Dictated: 05/14/171103 Date Transcribed: 05/14/171103 Aquatics Lifeguard: BARBY Signed 09-May-2017 Office Visit Report Result: Comments: See Note; NOTES: [facility] [address] [place] [address]. [address] [address] OFFICE VISIT Date of Service: 05/09/17 MR#: [id number] Acct: [id number] Patient: COMFORT OLSON Rep #: [id number] : 1940 Provider: Albert Kerr RN Age/Sex: 76/F Location: [facility] Status: Signed Intake Intake Visit Reasons: EKG 4 wk s/p per CATERING MANAGER Allergies No Known Allergies Allergy (Verified 05/04 [...] PO DAILY 11/11/16 [History Confirmed 04/19/17] Methscopolamine [place] 5 mg PO BID 11/11/16 [History Confirmed [...] Seaman 09-May-2017 12 Lead EKG performed by [facility] Result: Comments: See Note; NOTES: [facility] [address] [place] [address] 12 Lead EKG performed by [facility] 05/09/17 1110 MR#: [id number] Acct: [id number] Name: COMFORT OLSON Rep #: [id number] : 1940 76 From: Jonel Rashid MD Attending Dr: Albert Kerr RN Status: DEP AMB Ordering Dr: Jonel Rashid MD Date: 05/09/17 Location: [facility] Sex: F C Admitted: BMS/12 Lead EKG performed by [facility] ECG Report Interpretation Sinus Rhythm -Nonspecific QRS widening and anterior fascicular block. -Poor R-wave progression -nonspec ific -consider old anterior infarct. -Nonspecific ST depression -Nondiagnostic. ABNORMAL Electronically signed on 05/17/2017 at 18:31 by Jonel Rashid 05/17/17 1834 Date Jonel Rashid MD CC: Nia Uriostegui DO Date Dictated: 05/09/171109 Date Transcribed: 05/09/171109 Aquatics Lifeguard: CO Signed 09-May-2017 12 Lead EKG performed by [facility] Result: Comments: See Note; NOTES: [facility] [address] [place] [address] 12 Lead EKG performed by [facility] 05/09/171109 MR#: [id number] Acct: [id number] Name: COMFORT OLSON Rep #: [id number] : 1940 76 From: Jonel Rashid MD Attending Dr: Albert Kerr RN Status: DEP AMB Ordering Dr: Jonel Rashid MD Date: 05/09/17 [place] [facility] [place]: F C Admitted: B[facility]/12 Lead EKG performed by [facility] Sinus Rhythm -Nonspecific QRS widening and anterior fascicular block. -Poor -wave progression -nonspecific -consider old anterior infarct. -Nonspecific T d epression -Nondiagnostic. ABNORMAL 05/09/17 1610 <Electronically signed by Jonel Rashid MD> Date Jonel Rashid MD CC: Nia Beth O Date Dictated: 05/09/171109 Date Transcribed: 05/09/171109 Aquatics Lifeguard: CO Signed 06-May-2017 12 Lead Electrocardiogram Result: Comments: See Note; NOTES: [facility] Cardiovascular Services [address] [place] [address] 12 Lead EKG 05/04/17 2237 MR#: [id number] Acct: [id number] Name: COMFORT OLSON Rep # : [id number] : 1940 76 From: Jonel Rashid MD [...] ECG Confirmed by GAY ROSAS, JONEL ([id number]), deputy editor in chief AMIRA CASTRO ([id number]) on 05/06/2017 1:42:52 PM Referred By: DONY Confirmed By:JONEL RASHID MD 05/06/17 1342 Date Jonel Rashid MD CC: Natalya Napoles MD; Nia Uriostegui Signed 06-May-2017 12 Lead Electrocardiogram Result: Comments: See Note; NOTES: [facility] Cardiovascular Services [address] [place] [address] 12 Lead EKG 05/04/17 2045 MR#: [id number] Acct: [id number] Name: COMFORT OLSON Rep # : [id number] : 1940 76 From: Jonel Rashid MD [...] ECG Confirmed by JONEL RASHID MD ([id number]), deputy editor in chief AMIRA CASTRO ([id number]) on 05/06/2017 1:08:29 PM Referred By: RICKY NAPOLES Confirmed By:JONEL RASHID MD 05/06/17 1308 Date Jonel Rashid MD CC: Natalya Napoles MD; Nia Uriostegui DO Signed 04-May-2017 Emergency Department Summary Result: Comments: See Note; NOTES: [facility] Medical Records Department [address] [facility] [place] [address] Emergency Department Summary 05/04/17 2259 MR#: [id number] Acct: [id number] Name: COMFORT OLSON Rep #: [id number] : 1940 76 From: Natalya Napoles MD [...] ED physician This note was generated with CLEAR dictation software. It may contain incorre ct words, spelling, and punctuation that were not noted in review of the chart prior to signing ED Disposition - Plan for ED Patient: Chief Complaint: Palpitations Referrals: Nia Uriostegui, [[facility] Care Provider] - What to do if you have Problems For any increased pain, shortness of breath, bleeding, nausea or vomiting, chest pain, or any unexpected problems, contact your Primary Care Pro vider. Call Doctors Registry ([phone]) or report to the closest Emergency Room. Call 911 if necessary. 05/04/17 9948 <Electronically signed by Natalya Napoles MD> Date Natalya Napoles MD Cosigner Signature (If Indicated): Date CC: Nia Uriostegui 04-May-2017 Discharge Instruction Result: Comments: See Note; NOTES: [facility] Medical Records Department [address] [place] [address] Discharge Instruction 05/04/172339 MR#: [id number] Acct: [id number] Name: Liyah OLSON Rep #: [id number] : 1940 76 From: Natalya Napoles MD [...] your Primary Care Provider. Call Doctors Registry ([phone]) or report to the closest Emergency Room. Call 911 if necessary. 05/04/172340 <Electronically signed by Natalya Napoles MD> Date Natalya mary MD Cosigner Signature (If Indicated): Date CC: Nia Moody DO 04-May-2017 Chest 1 View (Portable) Result: Comments: See Note; NOTES: [facility] Imaging Services [address] [place] [address] Chest 1 View (Portable) MR#: [id number] Acct: [id number] Name: COMFORT OLSON Rep #: [id number] : 1940 F 76 From: Rafael Perez MD PCP: Nia Uriostegui DO Status: REG ER Study: Chest 1 View (Portable) Date of Exam: 05/04/17 Exam# [id number] Ordering Dr: Natalya Napoles MD STUDY: X [...] CC: Natalya Napoles MD; Nia Uriostegui DO Aquatics Lifeguard: Signed 19-Apr-2017 Emergency Department Summary Result: Comments: See Note; NOTES: [facility] Medical Records Department [address] [place] [address] Emergency Department Summary 04/19/17 1757 MR#: [id number] Acct: [id number] Name: COMFORT OLSON Rep #: [id number] : 1940 76 From: Deisi Ryan MD [...] with RVR This note was generated with Bbready.[employer] software. It may contain incorrect words, spelling, [...] your Primary Care Provider. Call Doctors [facility] ([phone]) or report to the closest Emergency Room. Call 911 if necessary. 04/19/171930 <Electronically signed by Deisi moscoso MD> Date Deisi Ryan MD Cosigner Signature (If Indicated): Date CC: Nia Uriostegui DO 19-Apr-2017 Chest 1 View (Portable) Result: Comments: See Note; NOTES: [facility] Imaging Services [address] [place] [address] Chest 1 View (Portable) MR#: [id number] Acct: [id number] Name: COMFORT OLSON Rep #: [id number] : 1940 F 76 From: Thanh Ambrzi MD PCP: Nia Uriostegui DO Status: PRE ER Study: Chest 1 View (Portable) Date of Exam: 04/19/17 Exam# [id number] Ordering Dr: Deisi Ryan MD STUDY: X- [...] CC: Deisi Ryan MD; Nia Uriostegui DO Aquatics Lifeguard: Signed 14-Mar-2017 Cardiology Visit Report Result: Comments: See Note; NOTES: [facility] [address] [place] [address] OFFICE VISIT Date of Service: 03/14/17 MR#: [id number] Acct: [id number] Name: COMFORT OLSON p #: [id number] : 1940 Provider: JOSSELYN Lombardo Age/Sex: 76/F Location: [facility] Status: Signed HPI 3 M FU: [...] less than 30% stenosis. Patient returned to Test And Turn Up Technician approximately one week later and showed [...] Intak e Visit Reasons: 3 M FU Pharmaceutical Salesperson Required: No Accompanied by: None Is patient [...] DAILY 11/11/16 [History Confirmed 02/28/17] M ethscopolamine [place] 5 mg PO BID 11/11/16 [History Confirmed [...] enlargement, left (Chronic) Atherosclerotic heart disease of [place] coronary artery without cynthia na pectoris (Chronic) [...] updated BP readings. 3. Atheroscle rosis of [place] coronary artery of [place] heart without angina pectoris I25.10 08/06/2004 CABG [...] to sa lance. Follow Up 6 Months (CATERING MANAGER) Coding Level of Care Code Off vis,est,level 3 Diagnoses Essential hypertension I10 Hypertension type: essential hypertension Cardiomyopathy in diseases classified elsew here I43 Atherosclerosis of [place] coronary artery of [place] heart without angina pectoris I25.10 [place] vs. transplanted heart: [place] heart Paroxysmal atrial fibrillation I48.0 Mixed hyperlipidemia E7 8.2 Hyperlipidemia type: mixed hyperlipidemia Coding Level of Care Code Off vis,est,level 3 Diagnoses Essential hypertension I10 Hypertension type: essential hypertension Cardiomyopathy in diseases c lassified elsewhere I43 Atherosclerosis of [place] coronary artery of [place] heart without angina pectoris I25.10 [place] vs. transplanted heart: [place] heart Paroxysmal atrial fibrillation I48.0 Mixed hy perlipidemia E78.2 Hyperlipidemia type: mixed hyperlipidemia 03/14/17 1154 <Electronically signed by Richard FREGOSOC> Date Richard Lombardo SLIP BRIDGE OPERATOR-C 03/14/17 1527<Electronically signed by Jonel Rashid MD> Cosigner Signature: Date (if applicable) Jonel Rashid MD CC: Nia Uriostegui DO 10-Mar-2017 Echo, Complete w/ Contrast Result: Comments: See Note; NOTES: [facility] Cardiovascular Services [address] [place] [address] Echo Complete W/ Contrast 03/10/17 1008 MR#: [id number] Acct: [id number] Name: COMFORT JONES Rep #: [id number] : 1940 76 From: Jonel Rashid MD Attending Dr: Jonel Rashid MD Status: REG I Ordering Dr: Jonel Rashid MD Date: 03/10/17 Location: [facility] Sex: F C Admitted: Reason Fo [...] 03/10/17 1008 Date Transcr ibed: 03/10/17 1412 Aquatics Lifeguard: Signed 13-Nov-2016 CTA Chest W/WO Contrast Result: Comments: See Note; NOTES: [facility] Imaging Services [address] [place] [address] CTA Chest W/WO Contrast MR#: [id number] Acct: [id number] Name: COMFORT OLSON Rep #: [id number] : 1940 F 75 From: Charly Almendarez DO PCP: Nia Uriostegui DO Status: REG ER Study: CTA Chest W/WO Contrast Date of Exam: 11/13/16 Exam# [id number] Ordering Dr: Emery Allen MD STUDY: CTA [...] CC: Emery Allen MD; Nia Uriostegui DO Aquatics Lifeguard: Signed 11-Nov-2016 Chest 1 View (Portable) Result: Comments: See Note; NOTES: [facility] Imaging Services [address] [place] [address] Chest 1 View (Portable) MR#: [id number] Acct: [id number] Name: COMFORT OLSON Rep #: [id number] : 1940 F 75 From: Jorge Herman MD PCP: Nia Uriostegui DO Status: REG ER Study: Chest 1 View (Portable) Date of Exam: 11/11/16 Exam# [id number] Ordering Dr: Jignesh Tello MD STUDY: X-RA [...] CC: Nia vo DO; Jignesh Tello MD Aquatics Lifeguard: Signed 16-Jan-2016 Chest PA and Lateral Result: Comments: See Note; NOTES: [facility] Imaging Services [address] [place] [address] Verda 4d Chest PA and Lateral MR#: [id number] Acct: [id number] Name: COMFORT OLSON Rep #: [id number] : 1940 F 75 From: John Babcock MD PCP: Balbir Cramer Status: REG CLI Study: Chest PA and Lateral Date of Exam: 01/16/16 Exam# [id number] Ordering Dr: Balbir Cramer STUDY: X-RAY CHEST [...] John Babcock MD at 13:26 EST Tel [phone], Service support , CC: Balbir Cramer Aquatics Lifeguard: Signed 14-Dec-2014 Bilat Scrn Digital AND CAD Result: Comments: See Note; NOTES: [facility] Imaging Services [address] [place] [address] Verdana 4d Bilat Scrn Digital AND CAD MR#: [id number] Acct: [id number] Name: COMFORT OLSON Rep #: [id number] : 1940 F 74 From: John Babcock MD PCP: Maylin Melendez DO Status: REG CLI Study: Bilat Scrn Digital AND CAD Date of Exam: 12/14/14 Exam# [id number] Ordering D r: Maylin Melendez DO MAMMOGRAPHY [...] John Babcock MD at 14:05 EST Tel [phone], Service support [phone], CC: Maylin Melendez DO Aquatics Lifeguard: Signed 14-Dec-2014 Carotid Duplex Ultrasound Result: Comments: See Note; NOTES: [facility] Cardiovascular Services [address] [place] [address] Carotid Duplex Ultrasound 12/12/14 1007 MR#: [id number] Acct: [id number] Name: COMFORT OLSON Rep #: [id number] : 1940 74 From: Darian Anderson MD Attending Dr: Maylin Melendez DO Status: REG CLI Ordering Dr: Maylin Melendez DO Date: 12/12/14 Location: [facility] Sex: F C Admi tted: Rt. [...] the left vertebral artery. Procedure Carotid Duplex 85020. Exam performed in department. Interpreta tion Summary [...] Date Dictated: 12/12/14 1007 Date Transcribed: 12/14/1437 Aquatics Lifeguard: Signed 25-Apr-2014 Nuclear Stress Test - Chemical Result: Comments: See Note; NOTES: [facility] Imaging Services [address] [place] [address] Nuclear Medicine Report MR#: [id number] Acct: [id number] Name: COMFORT OLSON Rep #: [id number] : 1940 F 73 From: Jonel Rashid MD PCP: Maylin Melendez DO Status: REG CLI Study: Nuclear Stress Test - Chemical Date of Exam: 04/25/14 Exam# [id number] Ordering Dr: Jonel Rashid MD P HARMACOLOGIC [...] CC: Jonel Rashid MD; Maylin Melendez DO Aquatics Lifeguard: CALIX Signed 31-Jan-2014 Spirometry (43764) Comments: Moderate restriction similar to previous Result: 14-Jan-2014 Chest PA and Lateral Result: Comments: See Note; NOTES: [facility] Imaging Services [address] [place] [address] Radiology Report MR#: [id number] Acct: [id number] Name: COMFORT OLSON Rep #: [id number] : 1940 F 73 From: John Babcock MD PCP: Maylin Melendez DO Status: REG CLI Study: Chest PA and Lateral Date of Exam: 01/14/14 Exam# [id number] Ordering Dr: Sherrie Amor STUDY: X-RAY CH [...] John Babcock MD at 14:58 EST Tel [phone], Service support [phone], RAD/Chest PA and Lateral IMPRESSION: Mild increased markings at the lung bases suggestive of linear atelectasis. Electronica lly Signed: John Babcock MD at 14:58 EST Tel [phone], Service support [phone], CC: Sherrie Amor; Maylin Melendez DO Aquatics Lifeguard: Signed 07-Sep-2013 Knee 4 or More Views Result: Comments: See Note; NOTES: [facility] Imaging Services [address] [place] [address] Radiology Report MR#: [id number] Acct: [id number] Name: COMFORT OLSON Rep #: [id number] : 1940 F 72 From: Yusuf Lopse PCP: Maylin Melendez DO Status: REG CLI Study: Knee 4 or More Views Date of Exam: 09/07/13 Exam# [id number] Ordering Dr: Maylin Melendez DO STUDY: X-RAY [...] Yusuf Lopes MD at 4:00 EDT Tel [phone] , Service support [phone] , CC: Maylin Melendez DO Aquatics Lifeguard: Signed 22-Aug-2013 Carotid Duplex Ultrasound Result: Comments: See Note; NOTES: [facility] Cardiovascular Services [address] [place] [address] Carotid Duplex Ultrasound 08/20/13 0945 MR#: [id number] Acct: [id number] Nam e: COMFORT OLSON Rep #: [id number] : 1940 72 From: Darian Anderson MD Attending Dr: Maylin Melendez DO Status: REG CLI Ordering Dr: Maylin Melendez DO Date: 08/20/13 Location: [facility] Sex: F C Admitted: Rt. Velocities/BP [...] the left vertebral artery. Procedure Carotid Duplex 70955. Exam performed in [facility] ent. Interpretation Summary Mild (<50%) stenosis right extracranial internal carotid. Mild (<50%) stenosis left extracranial internal carotid. Flow within the vertebral arteries is antegrade bilaterally. Ordering Physician: Maylin Melendez Performed By: Sanaz Sheth RVT : Maylin Melendez DO Date Dictated: 08/20/1345 Date Transcribed: 08/22/13 0848 Aquatics Lifeguard: Signed 09-Jul-2013 Chest PA and Lateral Result: Comments: See Note; NOTES: [facility] Imaging Services [address] [place] [address] Radiology Report MR#: [id number] Acct: [id number] Name: COMFORT OLSON Rep #: [id number] : 1940 F 72 From: Jermaine Khan DO PCP: aMylin Melendez DO Status: REG CLI Study: Chest PA and Lateral Date of Exam: 07/09/13 Exam# [id number] Ordering Dr: Sherrie Amor STUDY: X-RAY CHEST [...] Jermaine Khan DO at 22:50 EDT Tel [phone] , Service support [phone], CC: Sherrie Amor; Maylin Melendez DO Aquatics Lifeguard: Signed 08-Jan-2013 PT Discharge Summary Result: Comments: See Note; NOTES: [facility] [address] [place] [address] [address] [place] [id number] Fax REHABILITATION SERVICES DISCHARGE SUMMARY MR#: [id number] Acct: [id number] Name: COMFORT OLSON Rep #: [id number] : 1940 72 From: Farrukh Hull Referring [...] has. Farrukh Hull, PT T: NTS JOB: [id number] <Electronically signed by Farrukh Hull > 01/08/13 0648 CC: * Signed 18-Dec-2012 Inital Evaluation - PT Result: Comments: See Note; NOTES: [facility] [address] [place] [address] Fax REHABILITATION SERVICES INITIAL EVALUATION MR#: [id number] Acct: [id number] Name: COMFORT OLSON Rep #: [id number] : 1940 72 From: Farrukh Hull Referring Dr.: Maylin Melendez DO Status: REG RCR Insurance: MEDICARE PAR T A B Eval Date: [employer]OPER BENEFIT PLAN DATE OF SERVICE: 12/18/2012 [...] She has dizziness wi th left-sided Hallpike [place] test. No obvious nystagmus. Right- sided Hallpike [...] therapy. Farrukh Hull, PT T: NTS JOB: [id number] <Electronically signed by Farrukh Hull > 12/18/12 1151 CC: Signed For Medicare only, by signing this I certify the plan of care. 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 Status: Active Living Situation Comments: Lives with [...] kg/m2 Body Surface Area Calculated 1.92 m2 0-Lry-888486:27 Pulse 70 /min Comments: Pattern: Regular Respiration [...] kg/m2 Body Surface Area Calculated 2.01 m2 84-Als-563687:19 Temperature 96.1 f Pulse 76 /min Comments: [...] kg/m2 Body Surface Area Calculated 2 m2 49-Gvc-918774:11 Comments: Recheck BP 158/82 Temperature 100 f [...] 0.00 cm Results Date Description Value Details 6-Pim-184173:39 Basic Metabolic Profile (BMP) Comments: [facility] [address] [place], [address] GAP 9 (Normal) Range: 5-15 CO2 26.0 [...] A.D.A. criteria.Please note revised GLUCOSE reference range vqmbomlob97/02/2018. 2-Uyo-403471:42 HgA1C , Office (97905) HgA1C , Office 7.1 % (Normal) Range: 4.6 - 7.1 :42 Blood Glucose , Office (81028) Blood Glucose , Office 135 (Normal) :55 Basic Metabolic Profile (BMP) Comments: [facility] [address] [place], [place], [address] GAP 14 (Normal) Range: 5-15 CO2 23.0 [...] A.D.A. criteria.Please note revised GLUCOSE reference range cxwbucsbz02/02/2018. :55 CBC W/Diff, Automated Comments: [facility] [address] [place], [place], [address] Absolute Lymph 2.08 {X10_3/ul} (Normal) Range: 0.83-4.51 [...] 4.2-5.4 WBC 8.7 K/mm3 (Normal) Range: 4.4-11.0 01-Drh-24283:55 Troponin-I Comments: [facility] [address] [place], [address] TROPONIN-I < 0.015 ng/mL (Normal) Comments: TROPONIN-I EXPECTED VALUES <0.045 Negative 0.045 - 0.590 Consistent with Cardiac Damage > OR = 0.600 Critical Value Not every elevated troponin is indicative of VA. T hesevalues should be used with clinical judgement in examiningthe patient's clinical picture for diagnosis. To establisha diagnosis of VA versus myocardial injury, there must be ademonstrated rise and/ or fall in the troponin values, inaddition to ischemic symptoms, EKG changes, new regionalwall motion abnormality, and/or angiographical evidence. PLEASE NOTE: REFERENCE RANGES EDITED 17:05 Basic Metabolic Profile (BMP) Comments: [facility] [address] [place], [address] GAP 8 (Normal) Range: 5-15 CO2 28.0 [...] A.D.A. criteria.Please note revised GLUCOSE reference range klukhvylw00/02/2018. :05 CBC W/Diff, Automated Comments: [facility] [address] [place], [address] Absolute Lymph 2.24 {X10_3/ul} (Normal) Range: 0.83-4.51 [...] K/mm3 (Normal) Range: 4.4-11.0 :05 Troponin-I Comments: [facility] [address] [place], [place], [address] TROPONIN-I 0.020 ng/mL (Normal) Comments: TROPONIN-I EXPECTED VALUES <0.045 Negative 0.045 - 0.590 Consistent with Cardiac Damage > OR = 0.600 Critical Value Not every elevated troponin is indicative of VA. T hesevalues should be used with clinical judgement in examiningthe patient's clinical picture for diagnosis. To establisha diagnosis of VA versus myocardial injury, there must be ademonstrated rise and/ or fall in the troponin values, inaddition to ischemic symptoms, EKG changes, new regionalwall motion abnormality, and/or angiographical evidence. PLEASE NOTE: REFERENCE RANGES EDITED 06/23/1727-Aug-201720-Nzp-524968:18 HgA1C , Office (02652) HgA1C , Office 7.6 % (Abnormal) Range: 4.6 - 7.1 20-Dbj-500652:18 Blood Glucose , Office (69038) Blood Glucose , Office 142 (Normal) :51 Basic Metabolic Profile (BMP) Comments: [facility] [address] [place], [place], [address] GAP 9 (Normal) Range: 5-15 CO2 25.0 [...] A.D.A. criteria.Please note revised GLUCOSE reference range mzsrozqdp91/02/2018. 09-Rqg-78185:51 CBC W/Diff, Automated Comments: [facility] [address] [place], [place], [address] Absolute Lymph 2.43 {X10_3/ul} (Normal) Range: 0.83-4.51 [...] 4.2-5.4 WBC 9.6 K/mm3 (Normal) Range: 4.4-11.0 67-Sqs-72898:51 Troponin-I Comments: [facility] [address] [place], [address] TROPONIN-I < 0.015 ng/mL (Normal) Comments: TROPONIN-I EXPECTED VALUES <0.045 Negative 0.045 - 0.590 Consistent with Cardiac Damage > OR = 0.600 Critical Value Not every elevated troponin is indicative of VA. T hesevalues should be used with clinical judgement in examiningthe patient's clinical picture for diagnosis. To establisha diagnosis of VA versus myocardial injury, there must be ademonstrated rise and/ or fall in the troponin values, inaddition to ischemic symptoms, EKG changes, new regionalwall motion abnormality, and/or angiographical evidence. PLEASE NOTE: REFERENCE RANGES EDITED 06/23/1728-May-201745-Klo-145699:47 CALCIFEDIOL (64170) Comments: PATIENT NOT FASTINGPERFORMED BY: [facility] [facility] [id number] Vitamin D, 25-Hydroxy 20.2 ng/mL (Abnormal) Range: 30.0-100.0 Comments: Vitamin D deficiency has been defined by the [place] of[place]icine and an Endocrine Society practice guideline as alevel of serum 25-OH vitamin D less than 20 ng/mL (1,2).The Endocrine Society went on to further define vitamin Dinsufficiency as a level between 21 and 29 ng/mL (2).1. IOM ([place] of Medicine). 2010. Dietary reference intakes for calcium and D. [place]: The National Academies Press.2. Bobo MF, Estrellita STOCKTON, Maddi CALIX, et al. Evaluation, treatment, and prevention of vitamin D deficiency: an Endocrine Society clinical practice guideline. JCEM. 2010; 96(7):1911-30. 69-Nba-301790:47 VITAMIN B-12 (CYANOCOBALAMIN) Comments: PATIENT NOT FASTINGPERFORMED BY: [facility] Xlqaey9724 [facility] [id number] (69628) Vitamin B12 311 pg/mL (Normal) Range: 232-1245 93-Igr-189159:26 HgA1C , Office (96477) HgA1C , Office 7.3 % (Abnormal) Range: 4.6 - 7.1 99-Dxj-736755:26 Blood Glucose , Office (04508) Blood Glucose , Office 136 (Normal) 29-Hqh-391808:56 Basic Metabolic Profile (BMP) Comments: 'TROP' Serial specimen #1, #2, #3, or #4: 1[facility] [address] [place], [address] GAP 11 (Normal) Range: 5-15 CO2 27.0 [...] A.D.A. criteria.Please note revised GLUCOSE reference range fkzetsvqo80/02/2018. 30-Pum-749944:56 CBC W/Diff, Automated Comments: [facility] [address] [place], [address] Absolute Lymph 3.30 {X10_3/ul} (Normal) Range: 0.83-4.51 [...] 4.2-5.4 WBC 9.3 K/mm3 (Normal) Range: 4.4-11.0 59-Wct-996489:56 Troponin-I Comments: 'TROP' Serial specimen #1, #2, #3, or #4: 1[facility] [address] [place], [place], [address] TROPONIN-I < 0.02 ng/mL (Normal) Comments: TROPONIN-I EXPECTED VALUES <0.05 NEGATIVE 0.06 - 0.59 AT RISK OF VA > OR = 0.60 SUGGEST VA 56-Oqs-507267:33 Basic Metabolic Profile (BMP) Comments: 'TROP' Serial specimen #1, #2, #3, or #4: [address] [place] [address] [address] [place], [place], [address] GAP 10 (Normal) Range: 5-15 CO2 25.0 [...] A.D.A. criteria.Please note revised GLUCOSE reference range rujcztljz65/02/2018. 71-Anq-934256:33 CBC W/Diff, Automated Comments: [facility] [address] [place], [place], [address] Absolute Lymph 3.48 {X10_3/ul} (Normal) Range: 0.83-4.51 [...] 4.2-5.4 WBC 10.4 K/mm3 (Normal) Range: 4.4-11.0 01-Msw-989624:33 Troponin-I Comments: 'TROP' Serial specimen #1, #2, #3, or #4: 1[facility] [address] [place], [place], [address] TROPONIN-I 0.14 ng/mL (Abnormal) Comments: TROPONIN-I EXPECTED VALUES <0.05 NEGATIVE 0.06 - 0.59 AT RISK OF VA > OR = 0.60 SUGGEST VA 7-Isz-612427:16 HgA1C , Office (51042) HgA1C , Office 7.9 % (Abnormal) Range: 4.6 - 7.1 4-Efb-949598:15 Blood Glucose , Office (86431) Blood Glucose , Office 166 (Normal) 7-Wsi-778365:25 Basic Metabolic Profile (BMP) Comments: Order Date: 12/13/16Order Info: [id number] - *BMPComments: Reason:[facility] [address] [place], [address] GAP 9 (Normal) Range: 5-15 CO2 29.0 [...] 200 mg/dLsuggests DIABETES MELLITUS per A.D.A. criteria. 99-Guy-812054:27 Basic Metabolic Profile (BMP) Comments: Order Date: 11/19/16Order Info: 0667-1 - *BMPComments: Reason:[facility] [address] [place], [place], [address] GAP 8 (Normal) Range: 5-15 CO2 27.0 [...] 200 mg/dLsuggests DIABETES MELLITUS per A.D.A. criteria. 04-Our-022330:27 Partial Thromboplast Time Comments: Order Date: 11/19/16Order Info: [id number] - *PT/INROrder Info: 30807-3 - *PTT-Partial Thromboplastin TimeWLake [facility] [address]lpm[address] [place], [place], [address] PTT 29.4 s (Normal) Range: 24.1-36.2 :27 Prothrombin Time w/INR Comments: Order Date: 11/19/16Order Info: [id number] - *PT/INROrder Info: 66696-2 - *PTT-Partial Thromboplastin TimeWLake [facility] [address]gnwof[address] [place], [place], [address](902) INR 1.1 (Normal) PROTIME 13.4 s (Normal) Range: 11.7-14.9 :05 Basic Metabolic Profile (BMP) Comments: 'TROP' Serial specimen #1, #2, #3, or #4: 1[facility] [address] [place], [place], [address] GAP 10 (Normal) Range: 5-15 CO2 25.0 [...] A.D.A. criteria. :05 BNP,B-Type NATRIURETIC PEPTIDE Comments: [facility] [address] [place], [place], [address] B-TYPE ANDREW PEP 316.0 pg/mL (Abnormal) Range: 0-100 :05 CBC W/Diff, Automated Comments: [facility] [address] [place], [place], [address] Absolute Lymph 1.26 {X10_3/ul} (Normal) Range: 0.83-4.51 [...] Serial specimen #1, #2, #3, or #4: [address] [place] [address] [address] [facility] [place], [address] TROPONIN-I 0.15 ng/mL (Abnormal) Comments: TROPONIN-I EXPECTED VALUES <0.05 NEGATIVE 0.06 - 0.59 AT RISK OF VA > OR = 0.60 SUGGEST VA 3-Dhq-566957:10 Basic Metabolic Profile (BMP) Comments: 'TROP' Serial specimen #1, #2, #3, or #4: [address] [place] [address] Zqv[address]sw[address]zz2483 [facility]. [place], [place], [address] GAP 13 (Normal) Range: 5-15 CO2 22.0 [...] 200 mg/dLsuggests DIABETES MELLITUS per A.D.A. criteria. 9-Let-330241:10 CBC W/Diff, Automated Comments: [facility] [address] [place], [address] Absolute Lymph 2.88 {X10_3/ul} (Normal) [...] Serial specimen #1, #2, #3, or #4: 1[facility] [address]itm[address] [place], [address] TSH 1.29 {uIU/mL} (Normal) Range: 0.358-3.74 :10 Troponin-I Comments: 'TROP' Serial specimen #1, #2, #3, or #4: 1[facility] [address]kfixv[address] [place], [place], [address] TROPONIN-I < 0.02 ng/mL (Normal) Comments: TROPONIN-I EXPECTED VALUES <0.05 NEGATIVE 0.06 - 0.59 AT RISK OF VA > OR = 0.60 SUGGEST VA :58 HgA1C , Office (15925) HgA1C , Office 7.6 % (Abnormal) Range: 4.6 - 7.1 :58 Blood Glucose , Office (84651) Blood Glucose , Office 159 (Normal) :50 CBC W/Diff, Automated Comments: [facility] [address] [place], [place], [address] Absolute Lymph 1.46 {X10_3/ul} (Normal) Range: 0.83-4.51 [...] 4.2-5.4 WBC 7.3 K/mm3 (Normal) Range: 4.4-11.0 82-Smm-979654:50 CCP IgG Antibodies Comments: [facility] (refer to report for specific site)refer to report for address and phone number ANTI-CCP 052690 4 {units} (Normal) Range: 0-19 Comments: Negative <20 Weak positive 20 - 39 Moderate positive 40 - 59 Strong positive >59 59-Yhm-604766:50 Comprehensive Metabolic Profil Comments: [facility] [address] [place], [place], [address] GAP 9 (Normal) Range: 5-15 CO2 26.0 [...] 126 mg/dLsuggests DIABETES MELLITUS per A.D.A. criteria. 10-Xhb-176009:50 CRP Comments: [facility] [address] [place], [place], [address] C-REACTIVE PROT 8.89 mg/L (Abnormal) Range: 0.0-3.0 Comments: C-Reactive Protein (CRP) provides useful information for thediagnosis, therapy and monitoring of inflammatory processesand associated diseases. For the evaluation of Relative Riskfor Cardiovascular Dise ase, a High Sensitivity CRP (HSCRP)should be ordered. :50 Erythrocyte Sed Rate Comments: [facility] [address] [place], [place], [address] SED RATE 27 mm/h (Normal) Range: 0-30 79-Xvh-925777:50 Hep B Surface Antibodies Comments: [facility] (refer to report for specific site)refer to report for address and phone number Hep B Booker AB Non Reactive (Normal) Comments: Non Reactive: Inconsistent with immunity, less than 10 mIU/mL Reactive: Consistent with immunity, greater than 9.9 mIU/ mL 18-Wle-591878:50 Hepatitis B Surface Ag Comments: [facility] (refer to report for specific site)refer to report for address and phone number HB SURF AG Negative (Normal) Comments: Performed at: - [facility] [id number] Director: Christopher Sullivan PhD, Phone: [phone] at: - [facility]CoJason [place] [id number] Director: Loco Ivey MD, Phone: [phone] 18-Kxu-119967:50 Hepatitis C Antibodies Comments: [facility] (refer to report for specific site)refer to report for address and phone number HEP C AB <0.1 {s/co_ratio} (Normal) Range: 0.0-0.9 Comments: Negative: < 0.8 Indeterminate: 0.8 - 0.9 Positive: > 0.9 The CDC recommends that a positive HCV antibody result be followed up with a HCV Nucleic Acid Amplification test (210307). :50 Rheumatoid Factor Comments: [facility] [address] [place], [place], [address] RHEUMATOID FAC < 10.0 {IU/mL} (Normal) :50 Uric Acid Comments: [facility] [address] [facility] [place], [address] URIC 7.1 mg/dL (Abnormal) Range: 2.6-6.0 Comments: The drugs N-Acetylcysteine and Metamizole may falselydepress this assay. :03 Unable to Void SPRCS (Normal) Comments: PATIENT WAS FASTINGPERFORMED BY: [facility] [id number] Comments: The patient was not able to render a urine sample and has beeninstructed to return for a urine collection at their earliestconvenience. The urine testing that you have requested hasbeen deleted from th is report. When the patient returns andprovides a urine specimen, the urine testing will be performedand separately reported. :03 VITAMIN B-12 (CYANOCOBALAMIN) Comments: PATIENT WAS FASTINGPERFORMED BY: [employer]6370 [facility] [id number] (31539) Vitamin B12 264 pg/mL (Normal) Range: 211-946 :03 METABOLIC PANEL, COMPREHENSIVE Comments: PATIENT WAS FASTINGPERFORMED BY: [employer]70 [facility] [id number] (06930) ALT (SGPT) 7 [iU]/L (Normal) Range: 0-32 [...] mg/dL (Abnormal) Range: 65-99 :03 LIPID PANEL (92231) Comments: PATIENT WAS FASTINGPERFORMED BY: [employer] [place] [id number] VLDL Cholesterol Jyoti VLDLCH mg/dL (Normal) Range: 5-40 Comments: The calculation for the VLDL cholesterol is not valid whentriglyceride level is >400 mg/dL.Triglyceride result indicated is too high for an accurate LDLcholesterol estimation. HDL Cholesterol 26 mg/dL (Abnormal) Triglycerides 542 mg/dL (Abnormal) Range: 0-149 Cholesterol, Total 183 mg/dL (Normal) Range: 100-199 :03 CBC W/AUTO DIFF WBC (47117) Comments: PATIENT WAS FASTINGPERFORMED BY: [employer]70 [facility] [id number] Immature Grans (Abs) 0.0 {x10E3/uL} (Normal) Range: [...] (Normal) Range: 3.4-10.8 :48 HgA1C , Office (61459) HgA1C , Office 8.0 % (Abnormal) Range: 4.6 - 7.1 :48 Blood Glucose , Office (76596) Blood Glucose , Office 166 (Normal) :06 CALCIFEDIOL (42264) Comments: PATIENT NOT FASTINGPERFORMED BY: [facility]6[address] [facility] [id number] Vitamin D, 25-Hydroxy 51.1 ng/mL (Normal) Range: 30.0-100.0 Comments: Vitamin D deficiency has been defined by the [place] of[place]icine and an Endocrine Society practice guideline as alevel of serum 25-OH vitamin D less than 20 ng/mL (1,2).The Endocrine Society went on to further define vitamin Dinsufficiency as a level between 21 and 29 ng/mL (2).1. IOM ([place] of Medicine). 2010. Dietary reference intakes for calcium and D. [place]: The National Academies Press.2. Bobo MF, Estrellita STOCKTON, Maddi CALIX, et al. Evaluation, treatment, and prevention of vitamin D deficiency: an Endocrine Society clinical practice guideline. JCEM. 2010; 96(7):5331-30. 0-Lst-719202:06 CBC, PLATELETS & AUT DIFF Comments: PATIENT NOT FASTINGPERFORMED BY: [facility] Hmozhg0586 [facility] [id number] (67807) Immature Grans (Abs) 0.0 {x10E3/uL} (Normal) Range: [...] (Normal) Range: 3.4-10.8 :36 HgA1C , Office (48817) HgA1C , Office 8.0 % (Abnormal) Range: 4.6 - 7.1 :36 Blood Glucose , Office (72048) Blood Glucose , Office 155 (Normal) :39 METABOLIC PANEL, COMPREHENSIVE Comments: PATIENT WAS FASTINGPERFORMED BY: [facility] CountyUvhggs0911 [facility] [id number] (47120) ALT (SGPT) 6 [iU]/L (Normal) Range: 0-32 [...] mg/dL (Abnormal) Range: 65-99 :39 LIPID PANEL (88358) Comments: PATIENT WAS FASTINGPERFORMED BY: [facility]ightCarrie Tingley HospitalIrtdxb6842 [facility] [id number] LDL/HDL Ratio 3.6 {ratio_units} (Abnormal) Range: 0.0-3.2 Comments: LDL/HDL Ratio Men Women 1/2 Avg.Risk 1.0 1.5 Av g.Risk 3.6 3.2 2X Avg.Risk 6.2 5.0 3X Avg.Risk 8.0 6.1 LDL Cholesterol Calc 104 mg/dL (Abnormal) Range: 0-99 VLDL Cholesterol Jyoti 72 mg/dL (Abnormal) Range: 5-40 HDL Cholesterol 29 mg/dL (Abnormal) Triglycerides 359 mg/dL (Abnormal) Range: 0-149 Cholesterol, Total 205 mg/dL (Abnormal) Range: 100-199 99-Iey-455459:49 Blood Glucose , Office (97031) Blood Glucose , Office 159 (Normal) 44-Zlb-118716:49 HgA1C , Office (24494) HgA1C , Office 8.1 % (Abnormal) Range: 4.6 - 7.1 :03 VITAMIN B-12 (CYANOCOBALAMIN) Comments: PATIENT WAS FASTINGPERFORMED BY: StylesightLour[facility] Center of Burlington CountyUdmjlw2068 [facility] [id number] (66572) Vitamin B12 319 pg/mL (Normal) Range: 211-946 79-Xnb-590147:03 LIPID PANEL (62360) Comments: PATIENT WAS FASTINGPERFORMED BY: StylesightLour[facility] Center of Burlington CountyTevzms3193 [facility] [id number] VLDL Cholesterol Jyoti VLDLCH mg/dL (Normal) Range: [...] Cholesterol, Total 192 mg/dL (Normal) Range: 100-199 41-Drm-850835:03 Vitamin D Hydroxy (09771) Comments: PATIENT WAS FASTINGPERFORMED BY: [facility]6370 [facility] [id number] Vitamin D, 25-Hydroxy 21.1 ng/mL (Abnormal) Range: 30.0-100.0 Comments: Vitamin D deficiency has been defined by the [place] ofK[facility] Health [facility] Townshipcine and an Endocrine Society practice guideline as alevel of serum 25-OH vitamin D less than 20 ng/mL (1,2).The Endocrine Society went on to further define vitamin Dinsufficiency as a level between 21 and 29 ng/mL (2).1. IOM ([place] of Medicine). 2010. Dietary reference intakes for calcium and D. [place]: The National Academies Press.2. Bobo MF, Estrellita STOCKTON, Maddi CALIX, et al. Evaluation, treatment, and prevention of vitamin D deficiency: an Endocrine Society clinical practice guideline. JCEM. 2010; 96(7): 1911-30.; ADDENDA: non-emergent till apt next week 39-Ptd-114547:03 MICROALBUMIN: CREATININE RATIO Comments: PATIENT WAS FASTINGPERFORMED BY: [facility]6370 [facility] [id number] (59202) AND (07836) Microalb/Creat Ratio 26.1 {mg/g_creat} (Normal) Range: 0.0-30.0 Microalbumin, Urine 20.0 ug/mL (Normal) Creatinine, Urine 76.5 mg/dL (Normal) 58-Ibd-235815:03 CBC W/AUTO DIFF WBC Comments: PATIENT WAS FASTINGPERFORMED BY: [facility]6370 [facility] [id number] Information: [id number] (78945) Immature Grans (Abs) 0.0 {x10E3/uL} (Normal) Range: [...] 3.77-5.28 WBC 8.1 {x10E3/uL} (Normal) Range: 3.4-10.8 45-Ncy-515974:03 METABOLIC PANEL, COMPREHENSIVE Comments: PATIENT WAS FASTINGPERFORMED BY: [facility]CoL[facility] Bur[facility] CountyViibll1016 [facility] [id number] (44390) ALT (SGPT) 7 [iU]/L (Normal) Range: 0-32 [...] (Abnormal) Range: 65-99 :53 Vitamin D Hydroxy (94970) Comments: PATIENT WAS FASTINGPERFORMED BY: [employer] [id number] Vitamin D, 25-Hydroxy 25.5 ng/mL (Abnormal) Range: 30.0-100.0 Comments: Vitamin D deficiency has been defined by the [place] of[place]icine and an Endocrine Society practice guideline as alevel of serum 25-OH vitamin D less than 20 ng/mL (1,2).The Endocrine Society went on to further define vitamin Dinsufficiency as a level between 21 and 29 ng/mL (2).1. IOM ([place]). 2010. Dietary reference intakes for calcium and D. [place]: The National Academies Press.2. Bobo MF, Estrellita [place], Maddi CALIX, et al. Evaluation, treatment, and prevention of vitamin D deficiency: an Endocrine Society clinical practice guideline. JCEM. 2010; 96(7):1911-30. :53 LIPID PANEL (65644) Comments: PATIENT WAS FASTINGPERFORMED BY: [facility]My[facility]Pddqts1168 [facility] [id number] LDL/HDL Ratio 3.7 {ratio_units} (Abnormal) Range: 0.0-3.2 [...] PANEL, COMPREHENSIVE Comments: PATIENT WAS FASTINGPERFORMED BY: [facility]6370 [facility] [id number] (51049) ALT (SGPT) 5 [iU]/L (Normal) Range: 0-32 [...] mg/dL (Abnormal) Range: 65-99 :34 HGB A1C (93329) Comments: PATIENT WAS FASTINGPERFORMED BY: [employer] Wghnhg1757 [facility] [id number] Hemoglobin A1c 8.9 % (Abnormal) Range: 4.8-5.6 Comments: . Pre-diabetes: 5.7 - 6.4 Diabetes: >6.4 Glycemic control for adults with diabetes: <7.0 :11 VITAMIN B-12 (CYANOCOBALAMIN) Comments: B12lot:5200exp:06/26site:lt deltroute:EPIFANIOdose:chilo Camargo; PATIENT WAS FASTINGPERFORMED BY: [employer]lesight Jggndo5117 [facility] [id number] (55406) Vitamin B12 301 pg/mL (Normal) Range: 211-946 :11 Vitamin D Hydroxy (45630) Comments: PATIENT WAS FASTINGPERFORMED BY: Stylesight Ehefcx6004 [facility] [id number] Vitamin D, 25-Hydroxy 20.3 ng/mL (Abnormal) Range: 30.0-100.0 Comments: Vitamin D deficiency has been defined by the [place] of[place]icine and an Endocrine Society practice guideline as alevel of serum 25-OH vitamin D less than 20 ng/mL (1,2).The Endocrine Society went on to further define vitamin Dinsufficiency as a level between 21 and 29 ng/mL (2).1. IOM ([place] of Medicine). 2010. Dietary reference intakes for calcium and D. [place]: The National Academies Press.2. Bobo MF, Estrellita NC, Maddi CALIX, et al. Evaluation, treatment, and prevention of vitamin D deficiency: an Endocrine Society clinical practice guideline. JCEM. 2010; 96(7):1911-30. :11 METABOLIC PANEL, Comments: PATIENT WAS FASTINGPERFORMED BY: Stylesight Flpahe4956 [facility] [id number] Information: [id number] COMPREHENSIVE (74881) ALT (SGPT) 6 [iU]/L (Normal) Range: 0-32 [...] mg/dL (Abnormal) Range: 65-99 :11 LIPID PANEL (10803) Comments: PATIENT WAS FASTINGPERFORMED BY: [facility]6370 [facility] [id number]; will review on 07/04 LDL/HDL Ratio 4.0 [...] mg/dL (Abnormal) Range: 100-199 :11 HGB A1C (63218) Comments: PATIENT WAS FASTINGPERFORMED BY: [employer]6370 [facility] [id number] Hemoglobin A1c 8.5 % (Abnormal) Range: 4.8-5.6 Comments: . Pre-diabetes: 5.7 - 6.4 Diabetes: >6.4 Glycemic control for adults with diabetes: <7.0 :16 Vitamin D Hydroxy (97660) Comments: PATIENT WAS FASTINGPERFORMED BY: [employer]6370 [facility] [id number] Vitamin D, 25-Hydroxy 21.3 ng/mL (Abnormal) Range: 30.0-100.0 Comments: Vitamin D deficiency has been defined by the [place] of[place]icine and an Endocrine Society practice guideline as alevel of serum 25-OH vitamin D less than 20 ng/mL (1,2).The Endocrine Society went on to further define vitamin Dinsufficiency as a level between 21 and 29 ng/mL (2).1. IOM ([place] of [place]). 2010. Dietary reference intakes for calcium and D. [place]: The National Academies Press.2. Bobo MF, Estrellita NC, Maddi CALIX, et al. Evaluation, treatment, and prevention of vitamin D deficiency: an Endocrine Society clinical practice guideline. JCEM. 2010; 96(7):1911-30. :16 VITAMIN B-12 (CYANOCOBALAMIN) Comments: PATIENT WAS FASTINGPERFORMED BY: [employer]6370 [facility] [id number] (24247) Vitamin B12 283 pg/mL (Normal) Range: 211-946 :16 CBC W/AUTO DIFF WBC Comments: PATIENT WAS FASTINGPERFORMED BY: [facility]6370 [facility] [id number] Information: [id number] (61690) Immature Grans (Abs) 0.0 {x10E3/uL} (Normal) Range: [...] {x10E3/uL} (Normal) Range: 3.4-10.8 :16 LIPID PANEL (16710) Comments: PATIENT WAS FASTINGPERFORMED BY: [facility]6370 [facility] [id number] VLDL Cholesterol Jyoti VLDLCH mg/dL (Normal) Range: [...] Cholesterol, Total 168 mg/dL (Normal) Range: 100-199 52-Poj-134710:49 HGB A1C (16414) Comments: PATIENT NOT FASTINGPERFORMED BY: [employer]ight Fjegxw0474 [facility] [id number] Information: [id number] Hemoglobin A1c 8.1 % (Abnormal) Range: 4.8-5.6 Comments: . Pre-diabetes: 5.7 - 6.4 Diabetes: >6.4 Glycemic control for adults with diabetes: <7.0 32-Ajh-89505:30 VITAMIN B-12 (CYANOCOBALAMIN) Comments: PATIENT WAS FASTINGPERFORMED BY: Stylesight Cugbaw0576 [facility] [id number] (35435) Vitamin B12 325 pg/mL (Normal) Range: 211-946 34-Cze-46553:30 CBC (AUTO) (73743) Comments: PATIENT WAS FASTINGPERFORMED BY: StylesightLourdes Medical Center of Burlington CountyYpvvcu4436 [facility] [id number] Platelets 309 {x10E3/uL} (Normal) Range: 150-379 RDW 14.8 % (Normal) Range: 12.3-15.4 MCHC 31.1 g/dL (Abnormal) Range: 31.5-35.7 MCH 25.6 pg (Abnormal) Range: 26.6-33.0 MCV 82 fL (Normal) Range: 79-97 Hematocrit 39.2 % (Normal) Range: 34.0-46.6 Hemoglobin 12.2 g/dL (Normal) Range: 11.1-15.9 RBC 4.77 {x10E6/uL} (Normal) Range: 3.77-5.28 WBC 10.9 {x10E3/uL} (Abnormal) Range: 3.4-10.8 :30 Vitamin D Hydroxy (13699) Comments: PATIENT WAS FASTINGPERFORMED BY: Stylesight Eaxcnq4639 [facility] [id number] Vitamin D, 25-Hydroxy 19.9 ng/mL (Abnormal) Range: 30.0-100.0 Comments: Vitamin D deficiency has been defined by the [place] of[place]icine and an Endocrine Society practice guideline as alevel of serum 25-OH vitamin D less than 20 ng/mL (1,2).The Endocrine Society went on to further define vitamin Dinsufficiency as a level between 21 and 29 ng/mL (2).1. IOM ([place]). 2010. Dietary reference intakes for calcium and D. [place]: The National Academies Press.2. Bobo MF, Estrellita STOCKTON, Maddi CALIX, et al. Evaluation, treatment, and prevention of vitamin D deficiency: an Endocrine Society clinical practice guideline. JCEM. 2010; 96(7): 1911-30.; ADDENDA: non-emergent till tomorrows apt :30 LIPID PANEL (18010) Comments: PATIENT WAS FASTINGPERFORMED BY: [employer]70 [facility] [id number] VLDL Cholesterol Jyoti VLDLCH mg/dL (Normal) Range: [...] CREATININE RATIO Comments: PATIENT WAS FASTINGPERFORMED BY: Stylesight Wqijeh7567 [facility] [id number] (85736) AND (15209) Microalb/Creat Ratio 190.8 {mg/g_creat} (Abnormal) Range: 0.0-30.0 Microalbumin, Urine 66.6 ug/mL (Abnormal) Range: 0.0-17.0 Creatinine, Urine 34.9 mg/dL (Normal) Range: 15.0-278.0 :30 METABOLIC PANEL, Comments: PATIENT WAS FASTINGPERFORMED BY: [employer]70 [facility] [id number] Information: [id number] COMPREHENSIVE (27774) ALT (SGPT) 6 [iU]/L (Normal) Range: 0-32 [...] (Abnormal) Range: 65-99 :59 Vitamin D Hydroxy (22088) Comments: PATIENT NOT FASTINGPERFORMED BY: [employer]70 XStor SystemsHighlands-Cashiers Hospital [id number]; apt. 9-11-15 Vitamin D, 25-Hydroxy 21.4 ng/mL (Abnormal) Range: 30.0-100.0 Comments: Vitamin D deficiency has been defined by the [place] of[place] and an Endocrine Society practice guideline as alevel of serum 25-OH vitamin D less than 20 ng/mL (1,2).The Endocrine Society went on to further define vitamin Dinsufficiency as a level between 21 and 29 ng/mL (2).1. IOM ([place]). 2010. Dietary reference intakes for calcium and D. [place]: The National AcademExercise the World Press.2. Bobo MF, Estrellita NC, Maddi CALIX, et al. Evaluation, treatment, and prevention of vitamin D deficiency: an Endocrine Society clinical practice guideline. JCEM. 2010; 96(7):1911-30. :59 LIPID PANEL (28689) Comments: PATIENT NOT FASTINGPERFORMED BY: [employer] Wohexc2006 [facility] [id number] VLDL Cholesterol Jyoti VLDLCH mg/dL (Normal) Range: [...] B-12 (CYANOCOBALAMIN) Comments: PATIENT NOT FASTINGPERFORMED BY: [employer] Okdlsh1964 [facility]8TripHighlands-Cashiers Hospital [id number] (12404) Vitamin B12 500 pg/mL (Normal) Range: 211-946 :59 CBC W/AUTO DIFF WBC Comments: PATIENT NOT FASTINGPERFORMED BY: [employer] Boqhlx7594 [facility] [id number] Information: [id number] (91854) Immature Grans (Abs) 0.0 {x10E3/uL} (Normal) Range: [...] PANEL, COMPREHENSIVE Comments: PATIENT NOT FASTINGPERFORMED BY: LabCoLourdes Medical Center of Burlington CountyEmjgjw8239 [facility] [id number] (75403) ALT (SGPT) 6 [iU]/L (Normal) Range: 0-32 [...] Range: 65-99 :38 Blood Glucose , Office (42551) Blood Glucose , Office 198 (Normal) :38 HgA1C , Office (18942) HgA1C , Office 9.1 % (Abnormal) Range: 4.6 - 7.1 :40 Allergens, Zone 8 Comments: Test(s) 182071-G558-AnJ Cockroach, Ugandan; 134649-W851-KjH Campbell, White; 709097-V631-ZoZ Sweet Gumwere developed and had performance characteristicsdetermined by [employer]. These tests have not been c leared orapproved by the U.S. Food and Drug Administration. The FDAhas determined that such clearance or approval is notnecessary. These tests are used for clinical purposes.These should not be regarded as investigational or forresearch.Test performed at:[facility] Sltzjzevay[address]. [place], [place] [address] ; handled by jennifer VANG COMMENT Comment [...] <0.10 kU/L (Normal) Comments: Performed at: - Lab[address] [id number] Director: Loco Ivey MD, Phone: [phone] SHEEP SORREL <0.10 kU/L (Normal) PIGWEED, ROUGH [...] kU/L (Normal) D PTERONYSSINUS <0.10 kU/L (Normal) 65-Upu-85825:40 Immunoglobulin E Comments: Test performed at:[facility] Fhtznhvzkn1214 [facility]. [place], [place] [id number] IMMUNO E 53 {IU/mL} (Normal) Range: 0-100 Comments: Performed at: [address] [id number] Director: Christopher Sullivan PhD, Phone: [phone]; ADDENDA: handled by jennifer 41-Pix-452603:26 HgA1C , Office (71893) HgA1C , Office 9.6 % (Abnormal) Range: 4.6 - 7.1 2-Qfc-138580:31 BNP,B-Type NATRIURETIC PEPTIDE Comments: Test performed at:[facility] Mowolssxjd9942 [facility] [place] [address] B-TYPE ANDREW PEP 58.8 pg/mL (Normal) Range: 0-100 86-Aay-978276:04 IRON BINDING CAPACITY (TIBC) Comments: PERFORMED BY: [facility] [place] [address] [id number] (90300) Iron Saturation 11 % (Abnormal) Range: 15-55 Iron, Serum 47 ug/dL (Normal) Range: 35-155 UIBC 362 ug/dL (Normal) Range: 150-375 Iron Bind.Cap.(TIBC) 409 ug/dL (Normal) Range: 250-450 96-Uzy-773850:04 FERRITIN (70939) Comments: PERFORMED BY: [facility] [place] [address] [id number] Ferritin, Serum 32 ng/mL (Normal) Range: 15-150 37-Lrm-944437:04 VITAMIN B-12 (CYANOCOBALAMIN) Comments: PERFORMED BY: [facility] [place] [address] [id number] (47341) Vitamin B12 304 pg/mL (Normal) Range: 211-946 94-Pha-865025:04 Vitamin D Hydroxy (66977) Comments: PERFORMED BY: [facility] InternationalSandh[facility] [id number] Vitamin D, 25-Hydroxy 17.5 ng/mL (Abnormal) Range: 30.0-100.0 Comments: Vitamin D deficiency has been defined by the [place] ofKettering Health Washington Townshipcine and an Endocrine Society practice guideline as alevel of serum 25-OH vitamin D less than 20 ng/mL (1,2).The Endocrine Society went on to further define vitamin Dinsufficiency as a level between 21 and 29 ng/mL (2).1. IOM ([place]). 2010. Dietary reference intakes for calcium and D. [place]: The National Academies Press.2. Bobo MF, Estrellita STOCKTON, Maddi CALIX, et al. Evaluation, treatment, and prevention of vitamin D deficiency: an Endocrine Society clinical practice guideline. JCEM. 2010; 96(7):1911-30. 01-Glk-635799:04 LIPID PANEL (24849) Comments: PERFORMED BY: [place] second hand information companyHighlands-Cashiers Hospital [id number] VLDL Cholesterol Jyoti VLDLCH mg/dL (Normal) Range: [...] Cholesterol, Total 166 mg/dL (Normal) Range: 100-199 55-Cgl-343273:04 CBC W/AUTO DIFF WBC (10072) Comments: PERFORMED BY: [employer] [facility] [id number] Immature Grans (Abs) 0.0 {x10E3/uL} (Normal) Range: [...] 3.77-5.28 WBC 7.3 {x10E3/uL} (Normal) Range: 3.4-10.8 18-Pfk-503191:04 METABOLIC PANEL, COMPREHENSIVE Comments: PERFORMED BY: LabCoLourdes Medical Center of Burlington CountyZzqhlu1621 [facility] [id number] (24468) ALT (SGPT) 5 [iU]/L (Normal) Range: 0-32 [...] Glucose, Serum 279 mg/dL (Abnormal) Range: 65-99 30-Tpx-236592:18 HgA1C , Office (75247) HgA1C , Office 8.3 % (Abnormal) Range: 4.6 - 7.1 21-Kvr-526441:12 Rapid Flu (70252 x 2) Influenza A Ag negative (Normal) 00-Sfn-831623:43 BNTP (80782) Comments: PATIENT NOT FASTINGPERFORMED BY: LabCoLourdes Medical Center of Burlington CountyEmxqan6148 [facility] [id number] Information: [id number], [id number] B-Type Natriuretic Peptide 67.8 pg/mL (Normal) Range: 0.0-100.0 4-Ggv-964010:12 CBCD ALC 1.70 {X10_3/ul} (Normal) Range: 0.83-4.51 [...] 126 mg/dLsuggests DIABETES MELLITUS per A.D.A. criteria. 07-Emx-485383:14 Blood Glucose , Office (81930) Blood Glucose , Office 112 (Normal) :14 HgA1C , Office (83874) HgA1C , Office 7.3 % (Abnormal) Range: 4.6 - 7.1 60-Feg-736086:45 WESTON Negative (Normal) Comments: Performed at: [facility] LabCo[address] [id number] Director: Nick Cali PhD, Phone: [phone] 61-Xne-969784:45 CBCD ALC 1.65 {X10_3/ul} (Normal) Range: 0.83-4.51 [...] positive 40 - 59Strong positive >59Performed at: [facility] LabCo[address] [id number] Director: Loco Ivey MD, Phone: [phone] 07-Pob-913959:45 CMP GAP 4 (Abnormal) Range: 5-15 CO2 [...] a High Sensitivity CRP (HSCRP)should be ordered. 49-Bbw-891103:45 RF < 10.0 {IU/mL} (Normal) :45 SED tSEDRATE 12 mm/h (Normal) Range: 0-30 :45 VITD 30.7 mg/mL (Normal) Comments: Vitamin D 25(OH) Status RangeDeficiency <20 ng/mL (50nmol/L)Insuffciency 20 - 30 ng/mL (50 - 75 nmol/L)Sufficiency 30 - 100 ng/mL (75 - 250 nmol/L)Toxicity >100 ng/mL (>250 nmol/L) :46 Vitamin D Hydroxy (61495) Comments: PATIENT WAS FASTINGPERFORMED BY: [facility]6370 [facility] [id number] Vitamin D, 25-Hydroxy 22.7 ng/mL (Abnormal) Range: 30.0-100.0 Comments: Vitamin D deficiency has been defined by the [place] of[place]icine and an Endocrine Society practice guideline as alevel of serum 25-OH vitamin D less than 20 ng/mL (1,2).The Endocrine Society went on to further define vitamin Dinsufficiency as a level between 21 and 29 ng/mL (2).1. IOM ([place]). 2010. Dietary reference intakes for calcium and D. [place]: The National Academies Press.2. Bobo MF, Estrellita STOCKTON, Maddi CALIX, et al. Evaluation, treatment, and prevention of vitamin D deficiency: an Endocrine Society clinical practice guideline. JCEM. 2010; 96(7):1911-30. :46 MICROALBUMIN: CREATININE RATIO Comments: PATIENT WAS FASTINGPERFORMED BY: StylesightLourdes Medical Center of Burlington CountyDhttsb8698 [facility] [id number] (94840) AND (61437) Microalb/Creat Ratio 37.1 {mg/g_creat} (Abnormal) Range: 0.0-30.0 Microalbumin, Urine 29.9 ug/mL (Abnormal) Range: 0.0-17.0 Creatinine, Urine 80.5 mg/dL (Normal) Range: 15.0-278.0 :46 METABOLIC PANEL, COMPREHENSIVE Comments: PATIENT WAS FASTINGPERFORMED BY: [facility]6370 [facility] [id number] (68741) ALT (SGPT) 7 [iU]/L (Normal) Range: 0-32 [...] mg/dL (Abnormal) Range: 65-99 :46 LIPID PANEL (49198) Comments: PATIENT WAS FASTINGPERFORMED BY: [employer]70 XStor SystemsHighlands-Cashiers Hospital [id number] LDL/HDL Ratio 2.1 {ratio_units} (Normal) Range: 0.0-3.2 [...] AUT DIFF Comments: PATIENT WAS FASTINGPERFORMED BY: [place] second hand information companyHighlands-Cashiers Hospital [id number] Information: [id number] (32681) Hematology Comments: Note: (Normal) Comments: Verified by [...] 3.77-5.28 WBC 10.8 {x10E3/uL} (Normal) Range: 3.4-10.8 33-Npb-05512:46 VITAMIN B-12 (CYANOCOBALAMIN) Comments: PATIENT WAS FASTINGPERFORMED BY: LabCoLourdes Medical Center of Burlington CountyTtskle2975 [facility] [id number] (39150) Vitamin B12 254 pg/mL (Normal) Range: 211-946 7-Rnh-358187:10 HgA1C , Office (86484) HgA1C , Office 6.8 % (Normal) Range: 4.6 - 7.1 6-Qeq-604461:10 Blood Glucose , Office (64880) Blood Glucose , Office 146 (Normal) Comments: non-fasting :36 LIPID PANEL (84727) Comments: PATIENT WAS FASTINGPERFORMED BY: StylesightLourdes Medical Center of Burlington CountyQbkqks6507 [facility] [id number] VLDL Cholesterol Jyoti VLDLCH mg/dL (Normal) Range: [...] MANUAL DIFF Comments: PATIENT WAS FASTINGPERFORMED BY: [employer] Wcucye6951 [facility] [id number] Information: [id number] (30294) Immature Grans (Abs) 0.0 {x10E3/uL} (Normal) Range: [...] FASTINGPERFORMED BY: LabCoLourdes Medical Center of Burlington CountyFuekap8736 [facility] [id number] (19072) ALT (SGPT) 6 [iU]/L (Normal) Range: 0-32 [...] (Abnormal) Range: 65-99 :36 Vitamin D Hydroxy (23505) Comments: PATIENT WAS FASTINGPERFORMED BY: [employer] Iamkiw9791 Ryan RoadDublin [place] [id number] Vitamin D, 25-Hydroxy 17.5 ng/mL (Abnormal) Range: 30.0-100.0 Comments: Vitamin D deficiency has been defined by the [place] of[place]icine and an Endocrine Society practice guideline as alevel of serum 25-OH vitamin D less than 20 ng/mL (1,2).The Endocrine Society went on to further define vitamin Dinsufficiency as a level between 21 and 29 ng/mL (2).1. IOM ([place]). 2010. Dietary reference intakes for calcium and D. [place]: The National Academies Press.2. Bobo MF, Estrellita STOCKTON, Maddi CALIX, et al. Evaluation, treatment, and prevention of vitamin D deficiency: an Endocrine Society clinical practice guideline. JCEM. 2010; 96(7):1911-30. :36 VITAMIN B-12 (CYANOCOBALAMIN) Comments: PATIENT WAS FASTINGPERFORMED BY: LabContattarp Flcsoy8770 Ryan RoadDublin [place] [id number] (20587) Vitamin B12 264 pg/mL (Normal) Range: 211-946 :36 IRON (71003) Comments: PATIENT WAS FASTINGPERFORMED BY: [facility] Ffezif8893 Ryan RoadDublin [place] [id number] Iron, Serum 52 ug/dL (Normal) Range: 35-155 38-Ywv-782496:54 HgA1C , Office (63704) HgA1C , Office 7.1 % (Normal) Range: 4.6 - 7.1 :09 VITAMIN B-12 (CYANOCOBALAMIN) Comments: PATIENT WAS FASTINGPERFORMED BY: [facility] Ncnweo9706 Ryan RoadDublin [place] [id number] (22879) Vitamin B12 704 pg/mL (Normal) Range: 211-946 :09 Vitamin D Hydroxy (94231) Comments: PATIENT WAS FASTINGPERFORMED BY: [employer] Ifndys9609 [facility] [id number] Vitamin D, 25-Hydroxy 21.8 ng/mL (Abnormal) Range: 30.0-100.0 Comments: Vitamin D deficiency has been defined by the [place] ofKettering Health Washington Townshipcine and an Endocrine Society practice guideline as alevel of serum 25-OH vitamin D less than 20 ng/mL (1,2).The Endocrine Society went on to further define vitamin Dinsufficiency as a level between 21 and 29 ng/mL (2).1. IOM ([place] of [place]). 2010. Dietary reference intakes for calcium and D. [place]: The National Academies Press.2. Bobo MF, Estrellita STOCKTON, Maddi CALIX, et al. Evaluation, treatment, and prevention of vitamin D deficiency: an Endocrine Society clinical practice guideline. JCEM. 2010; 96(7):1911-30. :09 MICROALBUMIN: CREATININE RATIO Comments: PATIENT WAS FASTINGPERFORMED BY: [employer] Hzptqv7188 [facility] [id number] (60482) AND (36952) Microalb/Creat Ratio 24.2 {mg/g_creat} (Normal) Range: 0.0-30.0 Microalbumin, Urine 37.1 ug/mL (Abnormal) Range: 0.0-17.0 Creatinine, Urine 153.6 mg/dL (Normal) Range: 15.0-278.0 :09 METABOLIC PANEL, COMPREHENSIVE Comments: PATIENT WAS FASTINGPERFORMED BY: [employer] Bnycaj1785 [facility] [id number] (24632) ALT (SGPT) 9 [iU]/L (Normal) Range: 0-32 [...] Glucose, Serum 150 mg/dL (Abnormal) Range: 65-99 62-Okr-93445:09 CBC WITH MANUAL DIFF Comments: PATIENT WAS FASTINGPERFORMED BY: LabCoLourdes Medical Center of Burlington CountyGbehxd1160 [facility] [id number] Information: [id number] (48201) Immature Grans (Abs) 0.0 {x10E3/uL} (Normal) Range: [...] {x10E3/uL} (Normal) Range: 3.4-10.8 :09 LIPID PANEL (65400) Comments: PATIENT WAS FASTINGPERFORMED BY: LabCoLourdes Medical Center of Burlington CountyLttywq9471 [facility] [id number] VLDL Cholesterol Jyoti VLDLCH mg/dL (Normal) Range: [...] (Normal) Range: 100-199 :23 HgA1C , Office (15839) HgA1C , Office 7.2 % (Abnormal) Range: [...] Babcock M.D.November 02, 2012 at 3:41:31 PM [id number] Signed GP/GP If you are the referring physician and would like to consult with theradiologist who provided this interpretation, please contact Imani Hayes at [phone]. If this radiologist is unavailable, youwill be directed to another radiologist to assist. If you are a patient with a question regarding this report, pleasecontactyour referring lisa gonzalez directly. Professional Interpretation Provided By: [employer], Phone , These documents contain legally protected [...] 11/02/12 1544 Sign by: John Babcock MD 57-Swh-124510:33 MICROALBUMIN: CREATININE RATIO Comments: PATIENT WAS FASTINGPERFORMED BY: 3LeafCoLourdes Medical Center of Burlington CountyMxetdu1425 [facility] [id number] (70236) AND (26593) Microalb/Creat Ratio 31.2 {mg/g_creat} (Abnormal) Range: 0.0-30.0 Microalbumin, Urine 44.7 ug/mL (Abnormal) Range: 0.0-17.0 Creatinine, Urine 143.3 mg/dL (Normal) Range: 15.0-278.0 :33 CBC WITH MANUAL DIFF Comments: PATIENT WAS FASTINGPERFORMED BY: [facility] Ubuxkd0408 [facility] [id number] Information: [id number] (76369) Immature Grans (Abs) 0.0 {x10E3/uL} (Normal) Range: [...] 3.77-5.28 WBC 6.9 {x10E3/uL} (Normal) Range: 3.4-10.8 52-Erh-020088:33 METABOLIC PANEL, COMPREHENSIVE Comments: PATIENT WAS FASTINGPERFORMED BY: LabCoLourdes [facility] Center of Burlington CountyOeurdn1285 [facility] [id number] (26011) ALT (SGPT) 10 [iU]/L (Normal) Range: 0-32 [...] Glucose, Serum 158 mg/dL (Abnormal) Range: 65-99 57-Cti-705485:33 VITAMIN B-12 (CYANOCOBALAMIN) Comments: PATIENT WAS FASTINGPERFORMED BY: [address] [id number] (38757) Vitamin B12 >1999 pg/mL (Abnormal) Range: 211-946 60-Wsr-372306:33 IRON BINDING CAPACITY (TIBC) Comments: PATIENT WAS FASTINGPERFORMED BY: [address] [id number] (86844) Iron Saturation 16 % (Normal) Range: 15-55 Iron, Serum 59 ug/dL (Normal) Range: 35-155 UIBC 315 ug/dL (Normal) Range: 150-375 Iron Bind.Cap.(TIBC) 374 ug/dL (Normal) Range: 250-450 36-Hla-342734:33 FERRITIN (43719) Comments: PATIENT WAS FASTINGPERFORMED BY: [place] 6237070 [facility] [id number] Ferritin, Serum 29 ng/mL (Normal) Range: 15-150 21-Bfi-646534:33 HEPATIC FUNCTION PANEL Comments: PATIENT WAS FASTINGPERFORMED BY: [place] 6237070 [facility] [id number] (98008) Bilirubin, Direct 0.12 mg/dL (Normal) Range: 0.00-0.40 10-Fel-356487:33 LIPID PANEL (21134) Comments: PATIENT WAS FASTINGPERFORMED BY: [address] [id number] VLDL Cholesterol Jyoti VLDLCH mg/dL (Normal) Range: [...] Cholesterol, Total 174 mg/dL (Normal) Range: 100-199 12-Dkq-458700:33 Vitamin D Hydroxy (21924) Comments: PATIENT WAS FASTINGPERFORMED BY: LabCoLourdes [facility] Center of Burlington CountyIihkhe9208 [facility] [id number] Vitamin D, 25-Hydroxy 21.3 ng/mL (Abnormal) Range: 30.0-100.0 Comments: Vitamin D deficiency has been defined by the [place] ofK[facility]tering Health Washington Townshipcine and an Endocrine Society practice guideline as alevel of serum 25-OH vitamin D less than 20 ng/mL (1,2).The Endocrine Society went on to further define vitamin Dinsufficiency as a level between 21 and 29 ng/mL (2).1. IOM ([place] of Medicine). 2010. Dietary reference intakes for calcium and D. [place]: The National Academies Press.2. Bobo MF, Estrellita STOCKTON, Maddi CALIX, et al. Evaluation, treatment, and prevention of vitamin D deficiency: an Endocrine Society clinical practice guideline. JCEM. 2010; 96(7):1911-30. 46-Nkw-834114:22 HgA1C , Office (30782) HgA1C , Office 6.8 % (Normal) Range: [...] Babcock M.D.August 18, 2012 at 3:19:26 PM [id number] Signed GP/GP If you are the referring physician and would like to consult with theradiologist who provided this interpretation, please contact Imani Hayes at [phone]. If this radiologist is unavailable, youwill be directed to another radiologist to assist. If you are a patient with a question regarding this report, pleasecontactyour referring physician directly. Professional Interpretation Provided By: Blippar, Phone , These documents contain legally protected [...] 08/18/12 1522 Sign by: John Babcock MD 7-Zxj-581923:40 BILAT SCRN DIGITAL & CAD Radiology Report [...] Signed:John Babcock M.D.August 18 at 1:37:33 PM [id number] Signed GP/GP If you are the referring physician and would like to consult with theradiologist who provided this interpretation, please contact Sunil louis M.D. at [phone]. If this radiologist is unavailable, youwill be directed to another radiologist to assist. If you are a patient with a question regarding this report, pleasecontactyour referr ing physician directly. Professional Interpretation Provided By: Blipp[employer], Phone , These documents contain legally protected [...] 08/18/12 1400 Sign by: John Babcock MD 5-Dpm-642245:36 VERT FX ASSESS/LAT BONE DEN(H) Radiology Report [...] Babcock M.D.August 20, 2012 at 2:14:56 PM [id number] Signed GP/GP If you are the referring physician and would like to consult with [facility] who provided this interpretation, please contact Imani Hayes at [phone]. If this radiologist is unavailable, youwill be directed to another radiologist to assist. If you are a clarice ent with a question regarding this report, pleasecontactyour referring physician directly. Professional Interpretation Provided By: Bli[employer], Phone , These documents con tain legally [...] on 08/20/121416 Sign by: John Babcock MD 12-Dxz-34194:10 LIPID PANEL (98523) Comments: PATIENT WAS FASTINGPERFORMED BY: [place] second hand information companyHighlands-Cashiers Hospital [id number] VLDL Cholesterol Jyoti VLDLCH mg/dL (Normal) Range: [...] Cholesterol, Total 183 mg/dL (Normal) Range: 100-199 81-Wnn-36069:10 METABOLIC PANEL, COMPREHENSIVE Comments: PATIENT WAS FASTINGPERFORMED BY: [employer]6370 XStor SystemsHighlands-Cashiers Hospital [id number] (42272) ALT (SGPT) 5 [iU]/L (Normal) Range: 0-32 [...] Glucose, Serum 133 mg/dL (Abnormal) Range: 65-99 15-Gdc-69064:10 IRON BINDING CAPACITY (TIBC) Comments: PATIENT WAS FASTINGPERFORMED BY: [employer]70 XStor SystemsHighlands-Cashiers Hospital [id number] (41385) Iron Saturation 15 % (Normal) Range: 15-55 Iron, Serum 53 ug/dL (Normal) Range: 35-155 UIBC 308 ug/dL (Normal) Range: 150-375 Iron Bind.Cap.(TIBC) 361 ug/dL (Normal) Range: 250-450 :10 FERRITIN (96700) Comments: PATIENT WAS FASTINGPERFORMED BY: [employer]70 XStor SystemsHighlands-Cashiers Hospital [id number] Ferritin, Serum 25 ng/mL (Normal) Range: 15-150 69-Kta-81764:10 VITAMIN B-12 (CYANOCOBALAMIN) Comments: PATIENT WAS FASTINGPERFORMED BY: StylesightLourdes Medical Center of Burlington CountyZtdfal4617 [facility] [id number] (26093) Vitamin B12 258 pg/mL (Normal) Range: 211-946 33-Dad-63866:10 CBC WITH MANUAL DIFF Comments: PATIENT WAS FASTINGPERFORMED BY: 3LeafCoLourdes Medical Center of Burlington CountyWczwny9131 [facility] [id number] Information: [id number] AND DRAW FEE 99 1327 (14162) Immature Grans (Abs) 0.0 {x10E3/uL} (Normal) Range: [...] (Normal) Range: 4.0-10.5 :10 Vitamin D Hydroxy (68460) Comments: PATIENT WAS FASTINGPERFORMED BY: [employer] Qnbiql4326 Ryan RoadDublin [place] [id number] Vitamin D, 25-Hydroxy 20.4 ng/mL (Abnormal) Range: 30.0-100.0 Comments: Vitamin D deficiency has been defined by the [place] ofMedicine and an Endocrine Society practice guideline as alevel of serum 25-OH vitamin D less than 20 ng/mL (1,2).The Endocrine Society went on to further define vitamin Dinsufficiency as a level between 21 and 29 ng/mL (2).1. IOM ([place] of Medicine). 2010. Dietary reference intakes for calcium and D. [place]: The National Academies Press.2. Bobo MF, Estrellita NC, Maddi CALIX, et al. Evaluation, treatment, and prevention of vitamin D deficiency: an Endocrine Society clinical practice guideline. JCEM. 2010; 96(7):1911-30. 0-Gup-721226:08 IRON (35789) Comments: PATIENT WAS FASTINGPERFORMED BY: [employer] Lrtkeg2377 Ryan RoadDublin [place] [id number] Iron, Serum 58 ug/dL (Normal) Range: 35-155 8-Snt-759421:08 FERRITIN (32989) Comments: PATIENT WAS FASTINGPERFORMED BY: [employer] Homdul3687 Ryan RoadDublin [place] [id number] Ferritin, Serum 25 ng/mL (Normal) Range: 13-150 7-Xwb-266725:08 VITAMIN B-12 (CYANOCOBALAMIN) Comments: PATIENT WAS FASTINGPERFORMED BY: [employer] Hfwsif6424 Ryan RoadDublin [place] [id number] (13795) Vitamin B12 390 pg/mL (Normal) Range: 211-946 0-Adf-167970:08 Vitamin D Hydroxy (11049) Comments: PATIENT WAS FASTINGPERFORMED BY: [facility] Iuqmqb8766 Ryan RoadDublin [place] [id number] Vitamin D, 25-Hydroxy 25.3 ng/mL (Abnormal) Range: 30.0-100.0 Comments: Vitamin D deficiency has been defined by the [place] of[place]icine and an Endocrine Society practice guideline as alevel of serum 25-OH vitamin D less than 20 ng/mL (1,2).The Endocrine Society went on to further define vitamin Dinsufficiency as a level between 21 and 29 ng/mL (2).1. IOM ([place] of Medicine). 2010. Dietary reference intakes for calcium and D. [place]: The National Academies Press.2. Bobo MF, Estrellita STOCKTON, Maddi CALIX, et al. Evaluation, treatment, and prevention of vitamin D deficiency: an Endocrine Society clinical practice guideline. JCEM. 2010; 96(7):1911-30. 4-Xsf-778550:08 METABOLIC PANEL, COMPREHENSIVE Comments: PATIENT WAS FASTINGPERFORMED BY: LabCoLourdes Medical Center of Burlington CountyOvscis9828 [facility] [id number] (46407) ALT (SGPT) 6 [iU]/L (Normal) Range: 0-32 [...] Glucose, Serum 124 mg/dL (Abnormal) Range: 65-99 9-Lez-490532:08 CBC WITH MANUAL DIFF Comments: PATIENT WAS FASTINGPERFORMED BY: [facility]6370 [facility] [id number] Information: [id number] (94833) Immature Grans (Abs) 0.0 {x10E3/uL} (Normal) Range: [...] {x10E3/uL} (Normal) Range: 4.0-10.5 :08 LIPID PANEL (33246) Comments: PATIENT WAS FASTINGPERFORMED BY: [facility] Rdcjsh5749 [address] [facility] [id number] VLDL Cholesterol Jyoti VLDLCH mg/dL (Normal) Range: [...] (Normal) Range: 100-199 :56 HgA1C , Office (30451) HgA1C , Office 7.4 % (Abnormal) Range: 4.6 - 7.1 :56 Blood Glucose , Office (46975) Blood Glucose , Office 142 (Normal) :40 [...] 4.2-5.4 WBC 11.2 K/mm3 (Abnormal) Range: 4.4-11.0 32-Pxp-696146:40 CMP GAP 7 (Normal) Range: 5-15 CL [...] mg/dL suggests DIABETES MELLITUS per A.D.A. criteria. 75-Vcz-48618:04 CHEST WITH CONTRAST Radiology Report See Note [...] Babcock M.D.November 07, 2011 at 1:33:21 PM [id number] Signed GP/GP If you ar e the referring physician and would like to consult with theradiologist who provided this interpretation, please contact Imani Hayes at [phone]. If this radiologist is unavailable, youw ill [...] 11/07/11 1340 Sign by: John Babcock MD 59-Ayt-170150:41 Pathology Report Comments: PERFORMED BY: [facility]Co[facility] Whsg45266 [facility] [id number] BY: LX [facility] Fwrdnij37190 [facility] [id number] Information: [id number] See MATER Comments: Material submitted: .SHAVE BIOPSY [...] ARE SUBMITTEDIN TWO CASSETTES, A1 AND A2.COR/TMZCPT .929964 65-Qrh-159097:06 CBC WITH MANUAL DIFF Comments: PATIENT NOT FASTINGPERFORMED BY: CB [facility] Znbdqc5587 [facility] [id number] Information: [id number] (44219) Immature Grans (Abs) 0.0 {x10E3/uL} (Normal) Range: [...] 3.77-5.28 WBC 7.9 {x10E3/uL} (Normal) Range: 4.0-10.5 31-Npl-166578:06 LDH (LD) (LACTATE DEHYDROGENASE) Comments: PATIENT NOT FASTINGPERFORMED BY: LabCoLourdes Medical Center of Burlington CountyHnnquv8924 [facility] [id number] (95858) LDH 198 [iU]/L (Normal) Range: 0-214 13-Kzh-591546:06 IRON BINDING CAPACITY (TIBC) Comments: PATIENT NOT FASTINGPERFORMED BY: LabCoLourdes Medical Center of Burlington CountyQjvjsz8388 [facility] [id number] (60517) Iron Saturation 11 % (Abnormal) Range: 15-55 Iron, Serum 46 ug/dL (Normal) Range: 35-155 UIBC 389 ug/dL (Abnormal) Range: 150-375 Iron Bind.Cap.(TIBC) 435 ug/dL (Normal) Range: 250-450 80-Rdx-775743:06 FERRITIN (57755) Comments: PATIENT NOT FASTINGPERFORMED BY: LabCoLourdes [facility] Burlington CountyOzorpk2221 [facility] [id number] Ferritin, Serum 12 ng/mL (Abnormal) Range: 13-150 4-Jue-941117:03 HgA1C , Office (33009) HgA1C , Office 7.1 % (Normal) Range: 4.6 - 7.1 :34 CBC WITH MANUAL DIFF (04309) Comments: PATIENT WAS FASTINGPERFORMED BY: LabCoLourdes [facility] of Burlington CountyVyznfh1732 [facility] [id number] Immature Grans (Abs) 0.0 {x10E3/uL} (Normal) Range: [...] 3.77-5.28 WBC 8.3 {x10E3/uL} (Normal) Range: 3.4-10.8 4-Put-181059:11 FECAL OCCULT- Tubes sent home (83483) FECAL OCCULT HGB ASSAY, QUAL, 1-3 SIMULTANEOU positive (Normal) :30 HgA1C , Office (28591) HgA1C , Office 7.3 % (Abnormal) Range: [...] mg/dL suggests DIABETES MELLITUS per A.D.A. criteria. 53-Bit-014647:09 MIACRE tMICROCREAT 70.2 {mg/g_CRE} (Abnormal) MIALB 76.8 mg/L (Normal) CREU 109.3 mg/dL (Normal) 98-Dti-445698:09 VITD 23.9 ng/mL (Abnormal) Comments: appt 4-3-12 Range: 30.0-100.0 Comments: Vitamin D deficiency has been defined by the [place] of[place]icine and an Endocrine Society practice guideline as alevel of serum 25-OH vitamin D less than 20 ng/mL (1,2).The Endocrine Society went on to further define vitamin Dinsufficiency as a level between 21 and 29 ng/mL (2).1. IOM ([place] of [place]). 2010. Dietary reference intakes for calcium and D. [place]: The National Academies Press.2. Bobo VALLES, Estrellita STOCKTON, Maddi CALIX, et al. Evaluation, treatment, and prevention of vitamin D deficiency: an Endocrine Society clinical practice guideline. JCEM. 2010; 96(7): 1911-30.Performed at: - LabContattaLourdes Medical Center of Burlington CountyGhvwry6112 [place], [place] [address]Ssu Director: Charisma Hamilton MD, Phone: [phone] 4-Fko-385402:21 CHEST WITHOUT CONTRAST Radiology Report See Note [...] regarding this report, please jyoti edison felipe 71M5xxwdfks line @ Dictated on 02/15/111125 by Boone Alarcon DOribed on 02/15/111732 by ITS IMPORTSign by Emery Alarcon DO on 02/15/11 1734 Sign by: Emery Alarcon DO 0-Arg-593531:30 HgA1C , Office (40750) HgA1C , Office 7.4 % (Abnormal) Range: 4.6 - 7.1 3-Fmp-882665:30 Blood Glucose , Office (10676) Blood Glucose , Office 153 (Normal) :07 [...] cardiomegaly without apparent decompensation. Normal mediastinum and emli. Mild prominence central pulmonary vesselswithout redistribution to [...] ANNAMARIE WOODWARD MD :01 HgA1C , Office (77981) HgA1C , Office 7.9 % (Abnormal) Range: 4.6 - 7.1 26-Znh-876549:01 Blood Glucose , Office (53068) Blood Glucose , Office 133 (Normal) :52 [...] CREAT 107.1 mg/dL (Normal) :52 VIT D,25 85854 19.0 ng/mL (Abnormal) Range: 32.0-100.0 Comments: Recent studies consider the lower limit of 32.0 ng/mL to helena threshold for optimal health.Sunday BETTENCOURT. J Nutr. 2004;135(2):317-22.Performed at: - LabCoMarissa [place] [address]Lab Director: Charisma Hamilton MD, Phone: [phone] :[phone] VITAMIN B12 447 pg/mL (Normal) Range: [...] and bila teralhipswer e obtained using a Anne Fogarty scanner.. COMPARISON:Comparison is made with prior examination [...] by: John Babcock :28 HgA1C , Office (76633) HgA1C , Office 8.2 % (Abnormal) Range: 4.6 - 7.1 :28 Blood Glucose , Office (07552) Blood Glucose , Office 205 (Normal) :27 [...] CHOL 169 mg/dL (Normal) Comments: <200 mg/dL Ahgdgqlzs783-546 mg/dL Borderline>240 mg/dL High Risk HDL 24 [...] the presence of intrinsic factor blocking antibodies. 8-Lwz-385669:47 CHEST WITHOUT CONTRAST Radiology Report See Note (Normal) Comments: Exam Number: [id number] CT SCAN OF THE THORAX Multiple axial [...] unchanged as well. Reported By: JOHN BABCOCK 44-Vsp-540020:27 VITAMIN B-12 (CYANOCOBALAMIN) Comments: PATIENT NOT FASTINGPERFORMED BY: [employer]6370 [facility]rM[facility] [id number] (00102) Vitamin B12 338 pg/mL (Normal) Range: 211-946 Comments: Please note reference interval change 33-Gob-371272:27 Vitamin D Hydroxy (22918) Comments: PATIENT NOT FASTINGPERFORMED BY: [employer]6370 [facility]backrM[facility]lenberg [facility] [id number] Vitamin D, 25-Hydroxy 17.2 ng/mL (Abnormal) Range: 32.0-100.0 Comments: Recent studies consider the lower limit of 32.0 ng/mL to be athreshold for optimal health.Sunday BETTENCOURT. J Nutr. 2004;135(2):317-22. 82-Clh-578998:27 CBC WITH MANUAL DIFF Comments: PATIENT NOT FASTINGPERFORMED BY: [facility]6370 [facility] [id number] Information: [id number] (55787) Baso (Absolute) 0.0 {x10E3/uL} (Normal) Range: 0.0-0.2 [...] 3.80-5.10 WBC 7.3 {x10E3/uL} (Normal) Range: 4.0-10.5 03-Zxb-066842:27 METABOLIC PANEL, COMPREHENSIVE Comments: PATIENT NOT FASTINGPERFORMED BY: [facility]6370 [facility] [id number] (44692) ALT (SGPT) 7 [iU]/L (Normal) Range: 0-40 [...] Range: 65-99 :38 Blood Glucose , Office (00338) Blood Glucose , Office 133 (Normal) :57 [...] CHOL 186 mg/dL (Normal) Comments: <200 mg/dL Amfvghklp075-700 mg/dL Borderline>240 mg/dL High Risk 50-Zen-35801:57 LIVER ALT 9 U/L (Abnormal) Range: 12-78 D BILI 0.10 mg/dL (Normal) Range: 0.00-0.30 T BILI 0.20 mg/dL (Normal) Range: 0.00-1.00 ALB 3.7 g/dL (Normal) Range: 3.4-5.0 ALK P 51 U/L (Normal) Range: 50-136 AST 6 U/L (Abnormal) Range: 15-37 T PROT 7.3 g/dL (Normal) Range: 6.4-8.2 21-Ozj-226580:17 KNEE,4 OR MORE VIEWS (MT) Radiology Report See Note (Normal) Comments: Exam Number: [id number] CLINICAL:Medial pain X-RAY EXAMINATION RIGHT KNEE TECHNIQUE: [...] Report See Note (Normal) Comments: Exam Number: [id number] NONCONTRAST CHEST CT Comparison is made with [...] difficile Toxins Negative (Normal) Comments: PERFORMED BY: [facility] [employer] [facility] [id number] :51 A+B, EIA :51 Ova + Parasite Exam Comments: PERFORMED BY: [facility] Spdjfp8069 [facility] [id number] Ova + Parasite Exam Final report (Normal) Comments: These results were obtained using wet preparation(s) and trichromestained smear. This test does not include testing for Cryptosporidiumparvum, Cyclospora, or Microsporidia. Result 1 NOCP (Normal) Comments: No ova, cysts, or parasites seen. :51 Stool Culture Comments: Clinical Information: SRC:ST PERFORMED BY: [facility]6370 [facility] [id number] Campylobacter Culture Final report (Normal) E coli Shiga Toxin EIA Negative (Normal) Result 1 NCI (Normal) Comments: No Campylobacter species isolated. Result 1 NSS (Normal) Comments: No Salmonella or Shigella recovered. Salmonella/Shigella Screen Final report (Normal) :51 White Blood Cells (WBC), Comments: PERFORMED BY: [employer] Eniruh2821 [facility] [id number] Stool Result 1 NWBC (Normal) Comments: No white blood cells seen. White Blood Cells (WBC), Final report (Normal) Comments: Reference Range: None Seen Stool :52 CBC With Differential/Platelet Comments: PATIENT WAS FASTINGPERFORMED BY: [facility] Ndkqzz5029 [facility] [id number] Baso (Absolute) 0.0 {x10E3/uL} (Normal) Range: 0.0-0.2 [...] 11.7-15.0 WBC 5.2 {x10E3/uL} (Normal) Range: 4.0-10.5 78-Rbm-909061:52 Comp. Metabolic Panel (14) Comments: PATIENT WAS FASTINGPERFORMED BY: LabCoLourdes Medical Center of Burlington CountyCteohi9703 [facility] [id number] A/G Ratio 1.6 (Normal) Range: 1.1-2.5 Albumin, [...] Glucose, Serum 145 mg/dL (Abnormal) Range: 65-99 35-Enz-258137:52 Lipid Panel With LDL/HDL Comments: PATIENT WAS FASTINGPERFORMED BY: [place] second hand information companyHighlands-Cashiers Hospital [id number] Ratio Cholesterol, Total 135 mg/dL (Normal) Range: [...] pg/mL (Normal) Comments: PATIENT WAS FASTINGPERFORMED BY: [employer]70 XStor SystemsHighlands-Cashiers Hospital [id number] 0:52 Range: 211-911 Vitamin D, 25-Hydroxy 13.6 ng/mL Comments: PATIENT WAS FASTINGPERFORMED BY: [facility] Wvrseg3148 [facility] Hospitalkylie [place] [id number] 0:52 (Abnormal) Range: 32.0-100.0 Comments: Recent studies consider the lower limit of 32.0 ng/mL to be athreshold for optimal health.Sunday BETTENCOURT. J Nutr. 2004;135(2):317-22. :32 HgA1C , Office (16906) HgA1C , Office 6.9 % (Normal) Range: 4.6 - 7.1 :32 Blood Glucose , Office (45317) Blood Glucose , Office 179 (Normal) 25-Fok-009427:25 ABDOMEN LIMITED US () Radiology Report See Note (Normal) Comments: Exam Number: [id number] CLINICAL:Abdominal pain. LIMITED ABDOMINAL ULTRASOUND COMPARISON:None. FINDINGS: [...] of cholecystitis. Reported By: HALIMA TURNER M.D. 3-Glz-515394:35 Urinalysis, Office (99857) UA - BILIRUBIN Moderate (Normal) UA - [...] Panel (14) Comments: PATIENT NOT FASTINGPERFORMED BY: [employer] Wjpdhp2481 [facility] [id number] A/G Ratio 1.3 (Normal) Range: 1.1-2.5 Albumin, [...] Panel (7) Comments: PATIENT NOT FASTINGPERFORMED BY: StylesightLourdes Medical Center of Burlington CountyHoxhgg0687 [facility] [id number] Bilirubin, Direct 0.17 mg/dL (Normal) Range: 0.00-0.40 [...] g/dL (Normal) Range: 6.4-8.2 :27 VIT D,25 41261 16.4 ng/mL (Abnormal) Comments: ORDERED LIPID,LIVER ALSO Range: 32.0-100.0 Comments: Recent studies consider the lower limit of 32.0 ng/mL to helena threshold for optimal health.Sunday BETTENCOURT. J Nutr. 2004;135(2):317-22.Performed At: [address] [id number] :27 VITAMIN B12 430 pg/mL (Normal) Comments: ORDERED LIPID,LIVER ALSO Range: 254-1320 94-Gmi-712048:01 BRAIN/HEAD W/WO CONTRAST Radiology Report See Note (Normal) Comments: Exam Number: [id number] CT OF THE HEAD WITH AND WITHOUT CONTRAST DFGOBCV63-male-uhk woman who has had vague symptoms of [...] 02, 2008. Reported By: THANH ANNE M.D. 00-Vge-39431:51 CBCD,SMEAR DIFF CELLS COUNTED 100 (Normal) EOS [...] mg/dL (Normal) Range: 0.00-0.30 :51 VIT D,25 02791 6.3 ng/mL (Abnormal) Range: 32.0-100.0 Comments: Recent studies consider the lower limit of 32.0 ng/mL to helena threshold for optimal health.Sunday BETTENCOURT. J Nutr. 2004;135(2):317-22.Performed At: [facility]6[address] [place], [place] [id number] :51 VITAMIN B12 301 pg/mL (Normal) Range: 211-911 :43 CHEST WITHOUT CONTRAST Radiology Report See Note (Normal) Comments: Exam Number: [id number] CLINICAL: Nodules CT CHEST WITHOUT CONTRAST COMPARISON:April [...] cardiopulmonary disease Reported By: RIO KAY M.D. 28-Jef-366799:13 HgA1C , Office (71236) HgA1C , Office 7.5 % (Abnormal) Range: 4.6 - 7.1 44-Tle-078378:13 Blood Glucose , Office (40030) Blood Glucose , Office 203 (Normal) Antiparietal Cell 2.2 {Units} Comments: PERFORMED BY: [place] [id number] 0:04 Antibody (Normal) Range: 0.0-20.0 Comments: Negative 0.0 - 20.0 Equivocal 20.1 - 24.9 Positive >24.9 . Parietal Cell Antibodies are found in 90% of patients with pernicious anemia and 30% of first degree relatives with pernicious anemia. 69-Guy-883001:04 CBC With Differential/Platelet Comments: PERFORMED BY: [employer] [id number] Baso (Absolute) 0.0 {x10E3/uL} Range: 0.0-0.2 (Normal) [...] Factor Abs, Negative (Normal) Comments: PERFORMED BY: Stylesightrp Woiewdghgd5762 [facility] [id number] 0:04 Serum Vitamin B12 472 pg/mL (Normal) Comments: PERFORMED BY: StylesightTrinitas HospitalUlshhawsld8338 [facility] [id number] 0:04 Range: 211-911 :32 Fecal Occult Blood , Office (02213) Fecal Occult Blood Negative (Normal) , Office Ferritin, Serum 21 ng/mL (Normal) Comments: PATIENT NOT FASTINGPERFORMED BY: [employer] Ezjxxl7998 [employer] [place] Ingenicabl[place] [id number] :21 Range: 10-291 Folate (Folic >24.0 ng/mL (Normal) Comments: PATIENT NOT FASTINGPERFORMED BY: [employer] Dwhnnh9858 [employer] [place]abl[place] [id number] :21 Acid), Serum Comments: Indeterminate: 3.4 - 5.4 Deficient: <3.4 :21 Iron and TIBC Comments: PATIENT NOT FASTINGPERFORMED BY: [employer] Ewmcxn9888 [employer] [facility] IngenicaNovant Health Ballantyne Medical Centerin [place] [id number] Iron Bind.Cap.(TIBC) 377 ug/dL (Normal) Range: 250-450 Iron Saturation 13 % (Abnormal) Range: 15-55 Iron, Serum 49 ug/dL (Normal) Range: 35-155 UIBC 328 ug/dL (Normal) Range: 150-375 LDH 145 [iU]/L (Normal) Comments: PATIENT NOT FASTINGPERFORMED BY: [employer] Syybwv8541 [employer] [facility] IngenicaNovant Health Ballantyne Medical Centerin [place] [id number] :21 Range: 100-250 Reticulocyte Count 2.1 % (Normal) Comments: PATIENT NOT FASTINGPERFORMED BY: 3[facility]afCo Dsxmxh8982 [address] [facility]in [place] [id number] :21 Range: 0.5-3.0 Vitamin B12 182 pg/mL Comments: PATIENT NOT FASTINGPERFORMED BY: 3LeafCo Fbffml7676 [employer] [facility] IngenicaNovant Health Ballantyne Medical Centerin [place] [id number] :21 (Abnormal) Range: 211-911 :33 HgA1C , Office (98434) Comments: done>Wf. HgA1C , Office 6.8 % (Normal) Range: 4.6 - 7.1 :33 Blood Glucose , Office (14300) Comments: done>Wf. Blood Glucose , Office 150 [...] T PROT 6.7 g/dL (Normal) Range: 6.4-8.2 49-Esc-989358:27 BILAT SCRN DIGITAL & CAD Radiology Report See Note (Normal) Comments: Exam Number: [id number] MAMMOGRAM, BILATERAL SCREENING DIGITAL AND CAD HISTORYRoutine [...] kailash werealso examined with computer-aided detection software (ImageLabPixiesckFloodlight, 3dim, [employer] Universal Process.). Reported By: KEYA TREJO M.D. 07-Rea-106204:27 DEXA BONE DENSITY STUDY (HP) Radiology Report See Note (Normal) Comments: Exam Number: [id number] BONE DENSITOMETRY HISTORYPostmenopausal. TECHNIQUE Bone densitometry of the lumbar spine and left hip was performed. Thebest criteria for evaluation of osteoporosis is the T- value, whichrepresents the comparison of the patient's bone mass to an expectedpeak bone mass. For most patients, the mean T-value of L1 through L4is used to evaluate the lumbar spine. Based on the [facility] WorldHealth Organization classifications, the hip is [...] left hip. Reported By: KEYA TREJO M.D. 06-Vki-246935:46 HgA1C , Office (81776) HgA1C , Office 6.7 % (Normal) Range: 4.6 - 7.1 09-Snm-314345:46 Blood Glucose , Office (35782) Blood Glucose , Office 170 (Normal) :46 [...] Report See Note (Normal) Comments: Exam Number: [id number] RIGHT KNEE CLINICAL INFORMATIONKnee pain. Standing AP [...] Report See Note (Normal) Comments: Exam Number: [id number] CT CHEST NONCONTRAST CLINICAL STATEMENTFollow of lung [...] RICHARD CANADA M.D. :33 HgA1C , Office (22407) HgA1C , Office 6.5 % (Normal) Range: 4.6 - 7.1 :33 Blood Glucose , Office (22324) Blood Glucose , Office 89 (Normal) :34 [...] Range: 6.4-8.2 :17 Blood Glucose , Office (70879) Blood Glucose , Office 175 (Normal) :41 [...] :41 TSH 1.10 {uIU/mL} (Normal) Range: 0.34-4.82 74-Jxx-65513:53 CHEST WITH CONTRAST Radiology Report See Note (Normal) Comments: Exam Number: [id number] CT SCAN OF CHEST HISTORYCough. Consecutive axial [...] is suggested. Reported By: KEYA TREJO M.D. 7-Rzc-608983:45 HgA1C , Office (52457) Comments: [facility] HgA1C , Office 6.6 % (Normal) Range: 4.6 - 7.1 :45 Blood Glucose , Office (21107) Comments: [facility] Blood Glucose , Office 105 (Normal) :55 [...] Report See Note (Normal) Comments: Exam Number: [id number] CHEST PA AND LATERAL STATEMENTCough and pneumonia. [...] CHIVO MONIQUE M.D. :41 HgA1C , Office (69730) HgA1C , Office 6.8 % (Normal) Range: 4.6 - 7.1 :41 Blood Glucose , Office (37413) Blood Glucose , Office 126 (Normal) 70-Xtc-931843:11 CBCD,SMEAR DIFF CELLS COUNTED 100 (Normal) EOS [...] 47-70 WBC 7.4 K/mm3 (Normal) Range: 4.4-11.0 61-Kxq-870363:11 COMP METABOLIC A/G 1.1 {RATIO} (Normal) Range: [...] T PROT 7.1 g/dL (Normal) Range: 6.4-8.2 65-Qzr-571211:11 COMPLETE UA BACTERIA 0 SEEN {/hpf} (Normal) [...] (Normal) Range: 0-5 Comments: Result: 0-5 SEEN 06-Hdv-858105:11 MICROALBUMIN,UR 9.1 mg/L (Normal) :11 PFLIP CHOL [...] mg/dL VLDL 58 mg/dL (Abnormal) Range: 5-40 64-Grv-956907:11 TSH 0.85 {uIU/mL} (Normal) Range: 0.34-4.82 :11 HgA1C , Office (90079) HgA1C , Office 6.7 % (Normal) Range: 4.6 - 7.1 :11 Blood Glucose , Office (15314) Blood Glucose , Office 153 (Normal) Plan of Care Name Dates Details Instructions Diabetes mellitus type II, controlled : Follow up in 3 months Indication: Diabetes mellitus type II, controlled Asthma : Reviewed Test Analyst Letter Indication: Asthma Coronary artery disease : Reviewed Test Analyst Letter Indication: Coronary artery disease Hypertensive heart disease without heart failure : HTN/CAD Red Flags Indication: Hypertensive heart disease without heart failure ATRIAL FIBRILLATION (Renamed from A-fib) : Reviewed Test Analyst Letter Indication: ATRIAL FIBRILLATION (Renamed from A-fib) Type 2 diabetes mellitus, uncontrolled : Follow up in 3 months Indication: Type 2 diabetes mellitus, uncontrolled Coronary artery disease : Reviewed Test Analyst Letter Indication: Coronary artery disease Hypertensive heart [...] heart failure Coronary artery disease : Reviewed Test Analyst Letter Indication: Coronary artery disease Diabetes mellitus [...] ATRIAL FIBRILLATION (Renamed from A-fib) : Reviewed Test Analyst Letter Indication: ATRIAL FIBRILLATION (Renamed from A-fib) [...] ATRIAL FIBRILLATION (Renamed from A-fib) : Reviewed Test Analyst Letter Indication: ATRIAL FIBRILLATION (Renamed from A-fib) Type 2 diabetes mellitus, uncontrolled : Follow up in 3 months Indication: Type 2 diabetes mellitus, uncontrolled Gout, arthritis : Reviewed Lab Indication: Gout, arthritis Asthma : Reviewed Test Analyst Letter Indication: Asthma Type 2 diabetes mellitus, uncontrolled : *Diabetes Education Indication: Type 2 diabetes mellitus, uncontrolled Coronary artery disease : Reviewed Test Analyst Letter Indication: Coronary artery disease Mixed dyslipidemia [...] Indication: Asthma Coronary artery disease : Reviewed Test Analyst Letter Indication: Coronary artery disease Hypertensive heart [...] Follow up on Friday with [facility] Indication: Benign neoplasm of cerebral [...] up in [address] [facility] Indication: Cough Laryngitis : Laryngitis [...] pelvic and bimanual performed Planned Observations TSH ([id number])Indication: Diabetes mellitus type II, controlled On: :15 Request URINALYSIS, W/ MICRO (03668)Indication: Diabetes mellitus type II, controlled On: 2-Pdj-350333:15 Request MICROALBUMIN: CREATININE RATIO (22555) AND (97977)Indication: Diabetes mellitus type II, controlled On: :15 Request METABOLIC PANEL, COMPREHENSIVE (02813)Indication: Diabetes mellitus type II, controlled On: :15 Request CBC W/AUTO DIFF WBC ([id number])Indication: Diabetes mellitus type II, controlled On: :15 Request LIPOPROTEIN, BLD, BY NMR ([id number])Indication: Diabetes mellitus type II, controlled On: :15 Request VITAMIN B-12 (CYANOCOBALAMIN) (33813)Indication: Other vitamin B12 deficiency anemia On: 4-Tpc-928875:13 Request TSH (25553)Indication: ATRIAL FIBRILLATION (Renamed from A-fib) On: 60-Exz-876109:16 Request URINALYSIS, W/ MICRO (94581)Indication: Diabetes mellitus type II, controlled On: 25-Vzf-096786:16 Request MICROALBUMIN: CREATININE RATIO (92590) AND (52916)Indication: Diabetes mellitus type II, controlled On: 61-Iec-199824:16 Request METABOLIC PANEL, COMPREHENSIVE (93623)Indication: Diabetes mellitus type II, controlled On: 19-Uyn-535855:16 Request LIPOPROTEIN, BLD, BY NMR (10473)Indication: Diabetes mellitus type II, controlled On: 22-Meh-472036:16 Request LIPID PANEL (82353)Indication: Diabetes mellitus type II, controlled On: 14-Lev-977086:16 Request CBC W/AUTO DIFF WBC (50432)Indication: Diabetes mellitus type II, controlled On: 51-Orp-285148:15 Request VITAMIN B-12 (CYANOCOBALAMIN) (13106)Indication: Other vitamin B12 deficiency anemia On: 3-Zvp-609064:50 Request TSH (76274)Indication: ATRIAL FIBRILLATION (Renamed from A-fib) On: 8-Pom-272313:50 Request URINALYSIS, W/ MICRO (33581)Indication: Hypertensive heart disease without heart failure On: 0-Pjy-758725:49 Request MICROALBUMIN: CREATININE RATIO (28895) AND (46827)Indication: Hypertensive heart disease without heart failure On: 3-Hem-341383:49 Request METABOLIC PANEL, COMPREHENSIVE (07763)Indication: Hypertensive heart disease without heart failure On: 5-Xcw-921330:49 Request CBC W/AUTO DIFF WBC (33105)Indication: Hypertensive heart disease without heart failure On: 3-Qsp-391921:49 Request CALCIFEDIOL (01343)Indication: Vitamin D deficiency, unspecified On: 6-Uet-677249:49 Request LIPID PANEL (07395)Indication: Mixed dyslipidemia On: 2-Biq-193537:49 Request URINALYSIS, W/ MICRO (37893)Indication: Type 2 diabetes mellitus, uncontrolled On: 67-Hxd-263002:23 Request MICROALBUMIN: CREATININE RATIO (07025) AND (04467)Indication: Type 2 diabetes mellitus, uncontrolled On: 56-Ebi-860772:23 Request HEMOGLOBIN GLYCLATED (HGB A1C) (67644)Indication: Type 2 diabetes mellitus, uncontrolled On: 05-Faj-995369:03 Request HgA1C , Office (22323)Indication: Type 2 diabetes mellitus, uncontrolled On: 42-Loh-879169:46 Request Vitamin D Hydroxy (96680)Indication: Vitamin D deficiency, unspecified On: 07-Aje-672035:16 Request VITAMIN B-12 (CYANOCOBALAMIN) (10682)Indication: Other vitamin B12 deficiency anemia On: 34-Xcq-807558:16 Request CBC with auto diff (25630)Indication: Iron deficiency anemia, unspecified On: 07-Blo-787613:15 Request LIPID PANEL (87109)Indication: Mixed dyslipidemia On: 11-Fcn-175706:15 Request METABOLIC PANEL, COMPREHENSIVE (98471)Indication: Type 2 diabetes mellitus, uncontrolled On: 74-Irq-397778:15 Request CBC W/AUTO DIFF WBC (22083)Indication: Iron deficiency anemia, unspecified On: 47-Hzz-936454:44 Request URINALYSIS, W/ MICRO (88452)Indication: Heart disease, hypertensive, malignant, without heart failure On: 42-Gkj-198712:44 Request METABOLIC PANEL, COMPREHENSIVE (29592)Indication: Heart disease, hypertensive, malignant, without heart failure On: 18-Trl-601036:44 Request MICROALBUMIN: CREATININE RATIO (07278) AND (42590)Indication: Heart disease, hypertensive, malignant, without heart failure On: 24-Xky-387125:44 Request IRON ([id number])Indication: Iron deficiency anemia, unspecified On: 91-Zya-494913:44 Request CBC, Platelets & Auto Diff (44341)Indication: SOB On: 6-Zva-802791:09 Request Renal function Panel (74753)Indication: SOB On: 2-Hhq-756706:09 Request Vitamin D Hydroxy (89911)Indication: Vitamin D deficiency, unspecified On: 23-Lnt-523700:04 Request VITAMIN B-12 (CYANOCOBALAMIN) (25044)Indication: Other vitamin B12 deficiency anemia On: 04-Aew-957802:04 Request METABOLIC PANEL, COMPREHENSIVE (40219)Indication: Type 2 diabetes mellitus, uncontrolled On: 35-Omg-841306:04 Request IRON (54557)Indication: Iron deficiency anemia, unspecified On: 38-Slq-507766:59 Request IRON (19658)Indication: Iron deficiency anemia, unspecified On: 98-Mbc-006885:18 Request CBC WITH MANUAL DIFF (50410)Indication: Iron deficiency anemia, unspecified On: 53-Tbd-038717:43 Request METABOLIC PANEL, COMPREHENSIVE (54746)Indication: Hypertensive heart disease without heart failure On: 48-Uro-863699:43 Request CBC with manual diff (30673)Indication: Anemia On: :53 Request Comments: recheck in 3 months Ferritin (88128)Indication: Anemia On: :53 Request Iron Binding Capacity (TIBC) (87683)Indication: Anemia On: :53 Request Iron (85167)Indication: Anemia On: :53 Request LIPID PANEL (04992)Indication: Mixed dyslipidemia On: 29-Cac-440872:43 Request IRON (94344)Indication: Iron deficiency anemia, unspecified On: 29-Rfe-979179:35 Request Vitamin D Hydroxy (55513)Indication: Vitamin D deficiency, unspecified On: 5-Gfb-463933:14 Request METABOLIC PANEL, COMPREHENSIVE (83931)Indication: Type 2 diabetes mellitus, uncontrolled On: 2-Cwg-220209:13 Request IRON BINDING CAPACITY (TIBC) (02684)Indication: Iron deficiency anemia, unspecified On: 1-Chh-639517:10 Request FERRITIN (01173)Indication: Iron deficiency anemia, unspecified On: 1-Biw-121725:10 Request IRON (51394)Indication: Iron deficiency anemia, unspecified On: 2-Ovv-253597:10 Request MICROALBUMIN: CREATININE RATIO (29023) AND (63377)Indication: Type 2 diabetes mellitus, uncontrolled On: 0-Mri-047084:58 Request METABOLIC PANEL, COMPREHENSIVE (03322)Indication: Type 2 diabetes mellitus, uncontrolled On: :58 Request CBC WITH MANUAL DIFF ([id number])Indication: Type 2 diabetes mellitus, uncontrolled On: 8-Cub-267174:58 Request Vitamin D Hydroxy (07193)Indication: Vitamin D deficiency, unspecified On: 0-Jnv-088031:58 Request VITAMIN B-12 (CYANOCOBALAMIN) (91662)Indication: Other vitamin B12 deficiency anemia On: 2-Ejy-010362:58 Request LIPID PANEL (74109)Indication: Mixed dyslipidemia On: :01 Request METABOLIC PANEL, COMPREHENSIVE (41393)Indication: Hypertension On: 33-Gep-974005:00 Request CBC WITH MANUAL DIFF (25620)Indication: Other vitamin B12 deficiency anemia On: 83-Snw-631488:00 Request VITAMIN D, 1, 25-DIHYDROXY (27846)Indication: Vitamin D deficiency, unspecified On: :00 Request Vitamin D Hydroxy (12812)Indication: Vitamin D deficiency, unspecified On: : Request LIPID PANEL (99683)Indication: Mixed dyslipidemia On: : Request METABOLIC PANEL, COMPREHENSIVE (41417)Indication: Diabetes mellitus type II, controlled On: : Request CBC WITH MANUAL DIFF (62542)Indication: Other vitamin B12 deficiency anemia On: : Request MICROALBUMIN: CREATININE RATIO (81681) AND (70376)Indication: Diabetes mellitus type II, controlled On: : Request VITAMIN B-12 (CYANOCOBALAMIN) (64004)Indication: Other vitamin B12 deficiency anemia On: : Request HEMOGLOBIN GLYCLATED (HGB A1C) (14268)Indication: Diabetes mellitus type II, controlled On: :27 Request LIPID PANEL (54446)Indication: Mixed dyslipidemia On: :16 Request METABOLIC PANEL, COMPREHENSIVE (25157)Indication: Type 2 diabetes mellitus, uncontrolled On: :15 Request CBC WITH MANUAL DIFF (68039)Indication: Type 2 diabetes mellitus, uncontrolled On: :15 Request MICROALBUMIN: CREATININE RATIO (12472) AND (51887)Indication: Type 2 diabetes mellitus, uncontrolled On: :15 Request VITAMIN B-12 (CYANOCOBALAMIN) (90305)Indication: Other vitamin B12 deficiency anemia On: :15 Request Vitamin D Hydroxy (28428)Indication: Vitamin D deficiency, unspecified On: :15 Request HgA1C , Office (32026)Indication: Type 2 diabetes mellitus, uncontrolled On: 54-Tyn-147125:38 Request VITAMIN B-12 (CYANOCOBALAMIN) (97043)Indication: Other vitamin B12 deficiency anemia On: :55 Request LIPID PANEL (48926)Indication: Mixed dyslipidemia On: :55 Request METABOLIC PANEL, COMPREHENSIVE (70857)Indication: Heart disease, hypertensive, malignant, without heart failure On: :53 Request CBC WITH MANUAL DIFF (36606)Indication: Diverticulitis On: :53 Request LEUKOCYTE COUNT, FECAL (34207)Indication: Diarrhea On: :47 Request C.Difficile, Stool (36288)Indication: Diarrhea On: :47 Request BRO CULTURE-STOOL (13869)Indication: Diarrhea On: :47 Request Metabolic Panel, Comprehensive (68811)Indication: Abdominal pain, unspecified abdominal location On: :46 Request HEPATIC FUNCTION PANEL (25284)Indication: Abdominal pain, unspecified abdominal location On: :46 Request Bilirubin, Direct (29002)Indication: Abdominal pain, unspecified abdominal location On: :44 Request Bilirubin, total (55444)Indication: Abdominal pain, unspecified abdominal location On: :44 Request CBC WITH MANUAL DIFF (25553)Indication: Other vitamin B12 deficiency anemia On: 38-Lct-435822:15 Request VITAMIN B-12 (CYANOCOBALAMIN) (31975)Indication: Other vitamin B12 deficiency anemia On: :15 Request LIPID PANEL (45023)Indication: Mixed dyslipidemia On: :14 Request METABOLIC PANEL, COMPREHENSIVE (21130)Indication: Heart disease, hypertensive, malignant, without heart failure On: 50-Oaa-927128:14 Request Vitamin D Hydroxy (98009)Indication: Vitamin D deficiency, unspecified On: :06 Request CBC, PLATELETS & AUT DIFF (91893)Indication: Other vitamin B12 deficiency anemia On: :45 Request VITAMIN B-12 (CYANOCOBALAMIN) (01715)Indication: Other vitamin B12 deficiency anemia On: :45 Request HEPATIC FUNCTION PANEL (13545)Indication: Mixed dyslipidemia On: :44 Request LIPID PANEL (22130)Indication: Mixed dyslipidemia On: :44 Request Vitamin D Hydroxy (01744)Indication: vit d deficiency On: :33 Request Vitamin D Hydroxy (93024) On: 41-Rst-959214:04 Request VITAMIN B-12 (CYANOCOBALAMIN) (13253)Indication: Other vitamin B12 deficiency anemia On: : Request CBC WITH MANUAL DIFF (07914)Indication: Heart disease, hypertensive, malignant, without heart failure On: : Request METABOLIC PANEL, COMPREHENSIVE (52159)Indication: Heart disease, hypertensive, malignant, without heart failure On: : Request LIPOPROTEIN, BLD, BY NMR (92505)Indication: Mixed dyslipidemia On: : Request HEPATIC FUNCTION PANEL (23774)Indication: Mixed dyslipidemia On: : Request LIPID PANEL (22634)Indication: Mixed dyslipidemia On: Request FOLIC ACID SERUM (32711)Indication: Anemia On: Request FERRITIN (44713)Indication: Anemia On: : Request IRON (68018)Indication: Anemia On: Request IRON BINDING CAPACITY (TIBC) (71805)Indication: Anemia On: Request RETICULOCYTE COUNT MANUL (57371)Indication: Anemia On: Request LDH (LD) (LACTATE DEHYDROGENASE) (13459)Indication: Anemia On: Request VITAMIN B-12 (CYANOCOBALAMIN) (93537)Indication: Anemia On: : Request CBC WITH MANUAL DIFF (63007)Indication: Anemia On: Request HEPATIC FUNCTION PANEL (39259)Indication: Mixed dyslipidemia On: Request LIPID PANEL (38252)Indication: Mixed dyslipidemia On: Request MICROALBUMIN URINE QUANT (93809)Indication: Hypertension On: Request TSH (91841)Indication: Hypertension On: Request METABOLIC PANEL, COMPREHENSIVE (35539)Indication: Diabetes mellitus type II, controlled On: : Request HEPATIC FUNCTION PANEL (96814)Indication: Mixed dyslipidemia On: Request LIPID PANEL (78216)Indication: Mixed dyslipidemia On: 53-Kqy-545172:42 Request CBC WITH MANUAL DIFF (33627)Indication: Anemia On: :36 Request HEPATIC FUNCTION PANEL (78701)Indication: Mixed dyslipidemia On: :36 Request LIPID PANEL (50807)Indication: Mixed dyslipidemia On: :36 Request HgA1C , Office (77614)Indication: Diabetes mellitus type II, controlled On: :17 Request URINALYSIS W/O MICRO (61314)Indication: Hypertension On: :47 Request TSH (80736)Indication: Hypertension On: :47 Request METABOLIC PANEL, COMPREHENSIVE (02560)Indication: Hypertension On: :47 Request CBC WITH MANUAL DIFF (10382)Indication: Hypertension On: :47 Request Thin prep Pap (89660)Indication: well female - pap pelvic and bimanual performed On: 3-Rwe-874647:02 Request Planned Encounters Medical; 3 Month FU - On: 23-Mar-2018 10:00 [facility] Nia Uriostegui DO, DO, Kathleen Planned Procedures Flu Vaccine (Quadrivalent) On: 15-Dec-2017 Intent 82200Hi: Nia Uriostegui DO Comments: Lot #[id number]-L dltd, IMDose prefilled syringegiven by: Susie Lopez LPN.VIS reviewed and ABN signed Nia Uriostegui DO B 12 Injection, 1000 mcg On: 15-Dec-2017 Intent (J3420)By: Nia Uriostegui DO Comments: 1 ml given rt dltd lot [id number] exp 05/30 Nia Uriostegui DO ELECTROCARDIOGRAM, COMPLETE On: 15-Dec-2017 Intent (ECG) (88886)By: Moody MCFARLAND, Comments: nsr !! 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 Nia Uriostegui DO B 12 Injection, 1000 mcg On: 12-Feb-2017 Intent (J3420)By: Nia Uriostegui DO Comments: 1 ml given lt arm lot [id number] exp 06/28 Nia Uriostegui DO B 12 Injection, 1000 mcg On: 29-Nov-2016 Intent (J3420)By: Nia Uriostegui DO Comments: b12 1000mcglot: [id number]: 03/2018L DELT IMpt tolerated wellAD BEAM HOUSE INSPECTOR Nia Uriostegui DO Flu Vaccine (Quadrivalent) On: 07-Nov-2016 Intent 42244Yq: Nia Uriostegui DO Comments: Lot:[id number]:07/28/17Amt:0.5mlRoute:IMSite: L DltdGiven By: RAHUL Bar DO, Kathleen B 12 Injection, 1000 mcg On: 04-Nov-2016 Intent (J3420)By: Nia Urisotegui DO Comments: lot [id number] exp mcgleft dltdIMas Nia Uriostegui DO B 12 Injection, 1000 mcg On: 08-Aug-2016 Intent (J3420)By: Nia Uriostegui DO Comments: Lot:[id number]:07/28Dose:1mlRoute:IMSite:l armGiven By:Nia Nava DO B 12 Injection, 1000 mcg On: 24-Apr-2016 Intent (J3420)By: Nia Uriostegui DO Comments: Lot:[id number]:05/28Dose:1mlRoute:IMSite:Given By:Nia Nava DO ELECTROCARDIOGRAM, COMPLETE On: 24-Apr-2016 Intent (ECG) (63150)By: Moody MCFARLAND, Comments: sinus ana no acute chg Nia Reed DO Aerosol Treatment (42068)By: On: 27-Feb-2016 Intent Balbir Cramer MD Solu- Medrol Injection, 125mg On: 27-Feb-2016 Intent (J2930)By: Balbir Cramer MD Comments: lot [id number] 07/20181572630 mgleft gmIMas, BEAM HOUSE INSPECTOR Pulse Oximetry (06790)By: Bela On: 16-Jan-2016 Intent Balbir ROSAS Aerosol Treatment (52665)By: On: 16-Jan-2016 Intent Balbir Cramer MD Solu- Medrol Injection, 125mg On: 16-Jan-2016 Intent (J2930)By: Balbir Cramer MD Comments: Lot:[id number]:06/28Dose:125mgRoute:imSite:r hipGiven By:SASKIA signed CHEST XRAY, PA & LATERAL On: 16-Jan-2016 Intent (34015)By: Balbir Cramer MD Comments: ?PNA CAROTID ULTRASOUND (33368)By: On: 16-Jan-2016 Intent Balbir Cramer MD DEXA SCAN AXIAL SKELETON On: 16-Jan-2016 Intent (68928)By: Balbir Cramer MD MAMMOGRAM, SCREENING, BOTH On: 16-Jan-2016 Intent BREAST (94235)By: Balbir Cramer MD B 12 Injection, 1000 mcg On: 16-Jan-2016 Intent (J3420)By: Balbir Cramer MD Comments: lot: [id number]: ite/route: L del/IMamt: 1mLVIS signed when applicableMONSTER Molina B 12 Injection, 1000 mcg On: 11-Oct-2015 Intent (J3420)By: Balbir Cramer MD Flu Vaccine (Quadrivalent) On: 11-Oct-2015 Intent 63832Lo: Balbir Cramer MD Comments: Lot #[id number]/30/17ite-L dltd, IMDose prefilled syringegiven by:MAYCO OSWALD and ABN signed B 12 Injection, 1000 mcg On: 22-May-2015 Intent (J3420)By: Maylin Melendez DO B 12 Injection, 1000 mcg On: 17-Mar-2015 Intent (J3420)By: Maylin Melendez DO Comments: lot: [id number]: 10/27site/route: L del/IMamt: 1mLVIS signed when applicableMONSTER Molina PNEUM VAC ADLT/IMUMNOSPR, On: 30-Dec-2014 Intent SBC/INTRM (59211)By: Al MCFARLAND, Comments: PNUEMOlot:[id number]:1*13*17site:Rt deltoidroute:IMdose:.5mlDEMICK, SMA Maylin A B 12 Injection, 1000 mcg On: 30-Dec-2014 Intent (J3420)By: Maylin Melendez DO Comments: B12lot:[id number]:05/27site: LT deltoidROute: IMdose:1ml ADMINISTRATION OF INFLUENZA On: 21-Oct-2014 Intent VIRUS VACCINE (G0008)By: Maylin Melendez DO FLU VAC, SPLIT, >3 YEARS, On: 21-Oct-2014 Intent INTRAMUSC (19434)By: Al MCFARLAND, Comments: lot: [id number]: 08/10/15ite/route: L del/IMamt: 1mLVIS signed when applicableChelsMONSTER armenta MAMMOGRAM, SCREENING, BOTH On: 05-Oct-2014 Intent BREAST (24993)By: Maylin Melendez DO Cartoid DopplerBy: Al MCFARLAND, On: 05-Oct-2014 Intent Maylin A B 12 Injection, 1000 mcg On: 05-Oct-2014 Intent (J3420)By: Maylin Melendez DO Comments: Lot:[id number]:02Route:IMSite:R deltoidDose: 1 mLgiven by: Adalgisa Sexton CMA B 12 Injection, 1000 mcg On: 01-Sep-2014 Intent (J3420)By: Adalgisa Sexton Comments: Lot:[id number]:12.26Route:IMSite:R deltoidDose: 1 mLgiven by: Adalgisa Sexton CMA B 12 Injection, 1000 mcg On: 26-May-2014 Intent (J3420)By: Adalgisa Sexton Comments: lot:[id number]:04/25route:IMdose:1MLSite:R deltoidgiven by: ANS B 12 Injection, 1000 mcg On: 11-Apr-2014 Intent (J3420)By: Kaci Gomez LPN Comments: lot: [id number]: 11/25Dose: 1,000 mcgSite: l dltdLocation; IMby: Solu -Medrol Injection, 125 mg On: 22-Feb-2014 Intent (J2930)By: Maylin Melendez DO Comments: [id number] 6.48257 mgleft gmIMas, BEAM HOUSE INSPECTOR Solu -Medrol Injection, 125 mg On: 31-Jan-2014 Intent (J2930)By: Sherrie Amor CNP Comments: lot [id number] 06/2016location R hiproute imgiven by - msmith VIS and/or ABN signed B 12 Injection, 1000 mcg On: 21-Jan-2014 Intent (J3420)By: Maylin Melendez DO Comments: lot [id number] 05/2015location L armroute imgiven by - msmith VIS and/or ABN signed Aerosol Treatment (78993)By: On: 14-Jan-2014 Intent hSerrie Amor CNP Radiology - ChestBy: Mt On: 14-Jan-2014 Intent Sherrie OJEDA Comments: stat 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 EKG (05936)By: Mt OJEDA, On: 14-Jan-2014 Intent Sherrie Beck Comments: looks same as before No new ST -t wave changes ADMINISTRATION OF INFLUENZA On: 29-Nov-2013 Intent VIRUS VACCINE (G0008)By: Al Comments: Lot #[id number]-L dltd, IMDose prefilled syringegiven by:LORIN laurent and ABN signed Maylin MCFARLAND FLU VAC, SPLIT, >3 YEARS, On: 29-Nov-2013 Intent INTRAMUSC (67722)By: Maylin Melendez DO B 12 Injection, 1000 mcg On: 29-Nov-2013 Intent (J3420)By: Maylin Melendez DO Comments: magen, Antoinette dltd, Im - see flowsheet for lot and exp Radiology - Knee - Left - On: 06-Sep-2013 Intent Weight BearingBy: Maylin Melendez DO MAMMOGRAM, SCREENING, BOTH On: 18-Aug-2013 Intent BREAST (61020)By: Maylin Melendez DO B 12 Injection, 1000 mcg On: 18-Aug-2013 Intent (J3420)By: Maylin Melendez DO Aerosol Treatment (41406)By: On: 16-Jul-2013 Intent Sherrie Amor CNP Aerosol Treatment (41252)By: On: 09-Jul-2013 Intent Sherrie Amor CNP Radiology [...] On: 27-Apr-2013 Intent (J3420)By: Visit, Nurse Comments: Lot:[id number]:12/25Dose:1mlRoute:IMSite:l armGiven By:SASKIA signed Aerosol Treatment (23164)By: On: 17-Feb-2013 Intent Nia Uriostegui DO, DO, Comments: more q/e less cough -- ok to use rescue inhaler prn not moer than bid with a fib -- if needs ansd worsen go to ER-- pulse reguar after treatment Nia Spirometry (47128)By: Moody On: 17-Feb-2013 Nia Amaya DO, DO, Comments: mild restriction -- stable Nia Solu- Medrol Injection, 125mg On: 17-Feb-2013 Intent (J2930)By: Nia Uriostegui DO Comments: lot: [id number]: 16site/route: RGM/IMamt: 2mLVIS signed when applicableMONSTER Molina DO, Kathleen Eprescribed prescriptions On: 17-Feb-2013 Intent (G8553)By: Nia Uriostegui DO, DO, Kathleen EKG (37758)By: Maylin Melendez DO On: 12-Jan-2013 Intent A Comments: ekg showed normal sinus rhythym, left axis, no acute st/t wave changes Pelvic and Breast, Medicare On: 12-Jan-2013 Intent (G0101)By: Natalya Kohli Eprescribed prescriptions On: 18-Dec-2012 Intent (G8553)By: Maylin Melendez DO FLU VAC, SPLIT, >3 YEARS, On: 18-Dec-2012 Intent INTRAMUSC (12837)By: Seun, Comments: Lot #:[id number] date:mount given:0.5mlRoute: IMSite given: L dltdVIS and ABN signedGiven by: CHILO Gillespie ADMINISTRATION OF INFLUENZA On: 18-Dec-2012 Intent VIRUS VACCINE (G0008)By: Natalya Kohli B 12 Injection, 1000 mcg On: 01-Dec-2012 Intent (J3420)By: Tracy Barnes Comments: Lot:[id number]:09/24Dose:1mlRoute:IMSite:l armGiven By:SASKIA signed Eprescribed prescriptions On: 02-Nov-2012 Intent (G8553)By: Sherrie Amor CNP Radiology - Foot - RightBy: On: 02-Nov-2012 Intent Sherrie Amor CNP B 12 Injection, 1000 mcg On: 19-Oct-2012 Intent (J3420)By: Tracy Barnes Comments: lot: [id number]: 09/23site/route: L deltoid/IMamt: 1mLVIS signed when applicableMONSTER Molina B 12 Injection, 1000 mcg On: 31-Aug-2012 Intent (J3420)By: Maylin Melendez DO Comments: Lot: [id number]: [id number]: 1000mcg/1mlRoute: IMSite: L deltoidGiven by: KASIA Samson Eprescribed prescriptions On: 31-Aug-2012 Intent (G8553)By: Natalya Kohli Nuclear Medicine - Other - On: 18-Aug-2012 Intent Vertebral AssessmentBy: Al Comments: Maylin Vogel DO DXA, BONE DENSITY, AXIAL On: 22-Jun-2012 Intent SKELETON ([id number])By: Maylin Melendez DO MAMMOGRAM, SCREENING, BOTH On: 22-Jun-2012 Intent BREASTS ([id number])By: Maylin Melendez DO B 12 Injection, 1000 mcg On: 15-Jun-2012 Intent (J3420)By: Tracy Barnes Comments: lot: [id number]: 12/24site/route: R deltoid/IMamt: 1,000mcgVIS signed when applicableChelsea, HOT METAL CHARGER Eprescribed prescriptions On: 17-Apr-2012 Intent (G8553)By: Natalya Kohli 12 Injection, 1000 mcg On: 13-Apr-2012 Intent (J3420)By: Ramona Vásquez Comments: Lot:[id number]:01/23Dose:1mlRoute:IMSite:r armGiven By:SASKIA signed Eprescribed prescriptions On: 27-Mar-2012 Intent (G8553)By: Susie Lopez LPN FLU VAC, SPLIT, >3 YEARS, On: 17-Jan-2012 Intent INTRAMUSC ([id number])By: Al MCFARLAND, Comments: Lot #[id number]-left deltoidgiven by: KASIA Fajardo A ADMINISTRATION OF INFLUENZA On: 17-Jan-2012 Intent VIRUS VACCINE (G0008)By: Maylin Melendez DO Eprescribed prescriptions On: 17-Jan-2012 Intent (G8553)By: Natalya Kohli 12 Injection, 1000 mcg On: 31-Dec-2011 Intent (J3420)By: Maylin Melendez DO Comments: Lot:[id number]:Dose:1mlRoute:IMSite:L armGiven By:JACQUIE Aerosol Treatment ([id number])By: On: 24-Dec-2011 Intent Ciesa Sherrie OJEDA B [...] week and copy to dr betsy AREVALO ([id number])By: Maylin Melendez DO On: 17-Sep-2011 Intent A [...] MAMMOGRAM, SCREENING, BOTH On: 14-May-2011 Intent BREASTS ([id number])By: Maylin Melendez DO CT - ChestBy: Maylin [...] Intent (J2930)By: Sherrie Amor CNP Comments: Lot #[id number]-R hip, IMDose 125mg, 2 mlgiven by: Aerosol Treatment ([id number])By: On: 24-Aug-2010 Intent Sherrie Amor CNP Pulse Oximetry ([id number])By: Keesha On: 24-Aug-2010 Intent Ericka TELLEZ Spirometry ([id number])By: Al On: 03-Aug-2010 Intent DO Maylin A Comments: good efffort and curve normal EKG (15589)By: Maylin Melendez DO On: 03-Aug-2010 Intent A Comments: ekg showed normal sinus rhythym, normal axis, no acute st/t wave changes poor r wave progression Radiology - Chest- PA and On: 03-Aug-2010 Intent LatBy: Maylin Melendez DO A B 12 Injection, 1000 mcg On: 11-Jul-2010 Intent (J3420)By: Carol Stark LPN Comments: Lot #[id number]/20Site-left deltoidDose- 1 mlgiven by: Emili Stark LPN TD Injection , IM ([id number])By: On: 20-Apr-2010 Intent Al MCFARLAND Maylin A Comments: Lot #[id number]/Site-L dtd, IMDose prefilledgiven by: B 12 Injection, 1000 mcg On: 04-Apr-2010 Intent (J3420)By: Carol Stark LPN Comments: Lot #[id number]-left deltoidDose- 1 mlgiven by:[facility] B 12 Injection, 1000 mcg On: 16-Jan-2010 Intent (J3420)By: Carol Reina LPN Comments: Lot #[id number]/Site-R pixRync6hctmean by: B 12 Injection, 1000 mcg On: 12-Dec-2009 Intent (J3420)By: Carol Stark LPN Comments: Lot #[id number]/21Site-left deltoidDose- 1 mlgiven by:[facility] FLU VAC, SPLIT, >3 YEARS, On: 14-Nov-2009 Intent INTRAMUSC ([id number])By: Natalya Kohli ADMINISTRATION OF INFLUENZA On: 14-Nov-2009 Intent VIRUS VACCINE (G0008)By: Comments: Lot #: [id number] date:mount given: 0.5 mlRoute: IMSite given: left deltoid Given by: Lane Romeo, RN Natalya oKhli DXA, BONE DENSITY, AXIAL On: 01-Nov-2009 Intent SKELETON ([id number])By: Maylin Melendez DO MAMMOGRAM, SCREENING, BOTH On: 01-Nov-2009 Intent BREASTS ([id number])By: Maylin Melendez DO ADMINISTRATION OF PNEUMOCOCCAL On: 01-Nov-2009 Intent VACCINE (G0009)By: Maylin Melendez DO PNEUM VAC ADLT/IMUMNOSPR, On: 01-Nov-2009 Intent SBC/INTRM ([id number])By: Maylin Melendez DO B 12 Injection, 1000 mcg On: 01-Nov-2009 Intent (J3420)By: Carol Reina LPN Comments: Lot #[id number]/21Site-L dltdDose 30m/mlgiven by:KASIA GONZALES Pneumovax ([id number])By: Nuno On: 01-Nov-2009 Intent Carol PEDROZA Comments: Lot #[id number] 2010Site-R dltdDose 0.5mlgiven by:KASIA ANDERS B 12 Injection, 1000 mcg On: 25-Aug-2009 Intent (J3420)By: Carol Stark LPN Comments: Lot #[id number]-/Site-left deltoidDose- 1 mlgiven by:[facility] B 12 Injection, 1000 mcg On: 13-Jul-2009 Intent (J3420)By: Monik Rushing Comments: Lot #[id number]/2011Site-left cspbffxVrfh7421fcg/1mlgiven by Diana Rushing LPN CT - ChestBy: Fast DO, Maylin A On: 05-Jun-2009 Intent Spirometry ([id number])By: On: 05-Jun-2009 Intent Natalya Kohli Comments: goo deffort and curve mild small airway obst B 12 Injection, 1000 mcg On: 24-May-2009 Intent (J3420)By: Carol Stark LPN Comments: Lot #[id number]-/Site-right deltoidDose- 1 mlgiven by:[facility] Radiology - Knee - Right - On: 23-Dec-2008 Intent Weight BearingBy: Fast DO, Maylin A B 12 Injection, 1000 mcg On: 23-Dec-2008 Intent (J3420)By: Natalya Kohli Comments: Lot #:[id number] date:mount given:1mlRoute: IMSite given:left deltoidGiven by: CHILO Gillespie Aerosol Treatment ([id number])By: On: 08-Nov-2008 Intent Natalya Carter Comments: post treatment breath sounds clear bilat. pt. states feels breathing better. Pulse Oximetry ([id number])By: On: 08-Nov-2008 Intent Natalya Carter Comments: 95% [...] (J3420)By: Maylin Melendez DO Comments: Lot #[id number]/2009Site-left ntmtomlMptu3796ecd/1mlgiven by Diana Rushing LPN CT - Brain/HeadBy: Al MCFARLAND, On: 31-May-2008 Intent Maylin A EKG (00303)By: Maylin Melendez DO On: 10-May-2008 Intent A Comments: ekg showed normal sinus rhythym, leftaxis, nonspecific t changges unchanged fromprevious Echo CompleteBy: Al MCFARLAND, On: 10-May-2008 Intent Maylin A PFT - CompleteBy: Al MCFARLAND, On: 10-May-2008 Intent Maylin A Pulse Oximetry ([id number])By: Al On: 10-May-2008 Intent Maylin MCFARLAND Comments: 95 Spirometry (08361)By: Al On: 10-May-2008 Intent Maylin MCFARLAND Comments: good effort and curve mild restriction CT - ChestBy: Maylin Melednez DO On: 10-May-2008 Intent Bio Z ([id number])By: Al MCFARLAND, On: 10-May-2008 Intent Maylin A [...] Intent (J3420)By: Monik Rushing Comments: Lot #[id number]-5/10Site-left [id number] by Diana Rushing LPN INJECTION, VITAMIN B-12 On: 03-Dec-2007 Intent CYANOCOBALAMIN, UP TO 1000 Comments: injection given in left deltoid, Ptolerated welllo # [id number] 5/10 MCG (Special Coverage Instructions Apply. See CIM: 45-4 and MCM: 2048) (J3420)By: Irais Monreal B 12 Injection, 1000 mcg On: 26-Nov-2007 Intent (J3420)By: Monik Rushing Comments: Lot #[id number]-5/10Site-left [id number] by Diana Rushing LPN INJECTION, VITAMIN B-12 [...] MCFARLAND, On: 30-Oct-2007 Intent Maylin A Spirometry ([id number])By: Fast On: 30-Oct-2007 Intent DO Maylin A Comments: good effort and curve- some small airway decrease Radiology - Chest- PA and On: 30-Oct-2007 Intent LatBy: Al DO Maylin A DXA, BONE DENSITY, AXIAL On: 24-Jul-2007 Intent SKELETON ([id number])By: Al MCFARLAND, Comments: postmenopausal without estrogen Maylin A MAMMOGRAM, SCREENING, BOTH On: 24-Jul-2007 Intent BREASTS ([id number])By: Maylin Melendez DO Radiology - Knee - Right - On: 15-Jun-2007 Intent Weight BearingBy: Al MCFARLAND, Comments: call results Maylin Sherman CT - ChestBy: Maylin Melendez DO On: 03-Apr-[address] - ChestBy: Maylin Melendez DO On: 15-Aug-2006 Intent Spirometry (25701)By: Al On: 15-Aug-2006 Intent Maylin MCFARLAND Comments: good effort and curve- mild obstruction EKG (39539)By: Seun On: 15-Aug-2006 Intent Natalya Comments: ekg showed normal sinus rhythym, normal axis, no acute st/t wave changes Radiology - ChestBy: LEE On: 25-Jun-2006 Intent PAMELA OJEDA Comments: PA and LAT Solu- Medrol Injection, 125mg On: 25-Jun-2006 Intent (J2930)By: PAMELA HOWARD CNP Pulse Oximetry ([id number])By: On: 25-Jun-2006 Intent PAMELA HOWARD CNP Comments: pt tolerated well. ins waiver signed Aerosol Treatment ([id number])By: On: 25-Jun-2006 Intent PAMELA HOWARD CNP Comments: ins wwaiver signed, pt tolerated well Spirometry (13253)By: Al On: 14-May-2006 Intent Maylin MCFARLAND Comments: good effort and curve-mild obstruction ADMINISTRATION OF PNEUMOCOCCAL On: 11-Feb-2006 Intent VACCINE (G0009)By: ULYSSES Quiñones PNEUM VAC ADLT/IMUMNOSPR, On: 11-Feb-2006 Intent SBC/INTRM (94222)By: ULYSSES Quiñones Bio Z ([id number])By: Al MCFARLAND, On: 11-Feb-2006 Intent Maylin Sherman Comments: bp was 132/65- cardiac output, svr and thoracic fluid content is normal- will hold on med changes PNEUM VAC ADLT/IMUMNOSPR, On: 11-Feb-2006 Intent SBC/INTRM ([id number])By: Maylin Melendez DO ADMINISTRATION OF PNEUMOCOCCAL On: 11-Feb-2006 Intent VACCINE (G0009)By: Maylin Melendez DO MAMMOGRAM, SCREENING, BOTH On: 16-Oct-2005 Intent BREASTS ([id number])By: Maylin Melendez DO Planned Medications INJECTION, METHYLPREDNISOLONE [...] MCG/ML Injection Solution Ordered: 16-Jan-2010 Pending Long BEAM HOUSE INSPECTOR, Carol L Vitamin B-12 1000 MCG/ML Injection Solution Ordered: 04-Apr-2010 Pending Hluszti BEAM HOUSE INSPECTOR, Carol Vitamin B-12 1000 MCG/ML Injection Solution Ordered: 11-Jul-2010 Pending Hluszti BEAM HOUSE INSPECTOR, Acrol Vitamin B-12 1000 MCG/ML Injection Solution Ordered: 21-Nov-2010 Pending Long BEAM HOUSE INSPECTOR, Carol L Vitamin B-12 1000 MCG/ML Injection Solution Ordered: 14-Jan-2011 Pending Natalya Kohli Vitamin B-12 1000 MCG/ML Injection Solution Ordered: 15-Feb-2011 Pending Long BEAM HOUSE INSPECTOR, Carol L Vitamin B-12 1000 MCG/ML Injection Solution Ordered: 18-Mar-2011 Pending Hluszti BEAM HOUSE INSPECTOR, Carol Vitamin B-12 1000 MCG/ML Injection Solution Ordered: 16-Apr-2011 Pending Ericka Thao RN Vitamin B-12 1000 MCG/ML Injection Solution Ordered: 23-May-2011 Pending Mast RNEricka Vitamin B-12 1000 MCG/ML Injection Solution Ordered: 22-Jul-2011 Pending Hluszti BEAM HOUSE INSPECTOR, Carol Vitamin B-12 1000 MCG/ML Injection Solution [...] Reason for ER visit: note: (afib in [facility] from sat till wed). The [...] SOB. Had a stress test with my budget clerk and everything came back normal.), has decreased [...] weatching diet we talked about kyler catalan electronic drafter she doesnt want to - we talked about diabetes disease progression- she notices swelling better if moving around more - hasnt been back to [facility] so think should do that [...] had an MRI with doc up in [place] and was told that she had a [...] patient does not have durable power of deputy attorney general. The patient has noticed nothing from the geriatic depression scale. Other providers contributing to the patient's care are budget clerk, gastrologist nora beth other: (neurologist). 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 The patient feels well with no complaints [...] be panic or anxiety- she was at budget clerk a few mos ago and he had [...] now not as badEncounter Diagnosis: Knee pain (079.46) [facility] Office Visit On: 03-Apr-2007 [...]
--- OUTSIDE RECORDS SUMMARY | 2018-02-18 04:38 | XMS RPT_ITS | Continuity of Care Document ---
:1940 Author Organization [facility] Address [address] [place] [address] Phone Care Team Providers Name Role Phone Nia Uriostegui DO Unavailable Je Rodriguez Unavailable Dr. 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) Comments: Dr Rivas in [place], 09/25, does MRI every year , not [...] Lopez LPN Start : 31-Jul-2016 Active [place] 5/16 31G X 8 MM Miscellaneous 1 [...] Ordered:14-Jan-2014 ULYSSES Quiñones End : 14-Jan-2014 Inactive YOLETET CONTOUR TEST (In Vitro Strip) uad Strip [...] Quantity: 30 {Tablet} Refills: 3 Ordered:01-Nov-2009 Carol Reian LPN Start : 05-Jun-2009 Inactive Ferrous Sulfate [...] End : 07-Nov-2016 Inactive VITAMIN D (ERGOCALCIFEROL), 16293LIFS (Oral Capsule) 1 cap once a week (34952 UNIT) Inactive Vitamin D3 79116 UNIT Oral Tablet 1 (one) Tablet weekly [...] : 01-Nov-2009 Discontinued Comments:This order discontinued per [facility]. AMLODIPINE BESYLATE, 5MG (Oral Tablet) 1 Tablet qd for 0 days Quantity: 30 {Tablet} Refills: 3 Ordered:18-Dec-2012 Maylin Melendez DO Start : 18-Dec-2012 End : 18-Dec-2012 Discontinued Atenolol 100 MG Oral Tablet 1 tab Tablet qd for 90 days Quantity: 180 {Tablet} Refills: 3 Ordered:29-Nov-2016 Kaern Uriostegui DO, DO, Kathleen Start : 29-Nov-2016 [...] : 17-Apr-2012 End : 17-Apr-2012 Discontinued ERGOCALCIFEROL, 06854KEKW (Oral Capsule) 1 (one) Capsule q week [...] switch to her tradjenta VITAMIN D (ERGOCALCIFEROL), 81516ILJK (Oral Capsule) 1 Capsule twice a week [...] related so will get her back to [facility] Status: Inactive as of 24-Apr-2016 [...] US, Limited Result: Comments: See Note; NOTES: [facility] Cardiovascular Services [address] [place] [address] Art Duplex US Unilat Lower Ext 12/12/17 1304 MR#: [id number] Acct: [id number] Name: COMFORT OLSON Rep #: [id number] : 1940 77 From: Je Ceron MD Attending Dr: Je Ceron MD Status: REG CLI Ordering Dr: Je Ceron MD Date: 12/12/17 Location: [facility] Sex: F C Admitted: Reason For Study: RT Groin pseudoanerysm thrombin injection Right Velocities Rt groin pseudoaneurysm successfully thrombosed s/p thrombin injection. 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 P rocedure Exam performed in department. Interpretation Summary Successful thrombosis right femoral pseudoaneurysm __ Ordering Physician: Je Ceron Performed By: Sanaz Sheth RVT 12/12/17 1404 Date Je Ceron MD CC: Nia Uriostegui DO; Je Ceron MD Date Dictated: 12/12/17 1304 Date Transcribed: 12/12/17 1404 Business Planner: Signed 12-Dec-2017 Operative Report Result: Comments: See Note; NOTES: [facility] Medical Records Department [address] [place] [address] Operative Report 12/12/17 1359 MR#: [id number] Acct: [id number] Name: COMFORT OLSON Rep #: [id number] : 1940 77 From: Je Ceron MD [...] Visit Report Result: Comments: See Note; NOTES: 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 Greene. Patient is about 10 days out. She complained of swelling and pain. She presented to Dr. Richmond's office yesterday. A ultrasound was obtained. This demonstrates a 2 cm pseudoaneurysm in the [facility] groin but there is additional concern for [...] Visit Report Result: Comments: See Note; NOTES: [place] [address] [place] [address] OFFICE VISIT Date of Service: 12/11/17 MR#: [id number] Acct: [id number] Patient: COMFORT OLSON Rep #: [id number] : 1940 Provider: Jonel Rashid MD Age/Sex: 77/F Location: [facility] Status: Signed Intake Intake Visit Reasons: PER [...] PO BID 08/24/17 [History Confirmed 10/31/17] Methscopolamine Agness 5 mg PO BID 08/24/17 [History Confirmed [...] -MATTIE Extrem Result: Comments: See Note; NOTES: [facility] Cardiovascular Services [address] [place] [address] Art Duplex US Bilat Lower Ext 12/11/17 1408 MR#: [id number] Acct: [id number] Name: COMFORT OLSON Rep #: [id number] : 1940 77 From: Je Ceron MD Attending Dr: Annemarie Parsons Status: REG CLI Ordering Dr: Jonel Rashid MD Date: 12/11/17 Location: 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 PROCESS ENGINEER - 1.2 x 1.2 cm with a velocity of 159.0 LT SENIOR PROCESS ENGINEER - .88 x .83 cm with [...] Parsons Performed By: Sanaz Sheth RVT 12/11/17 1049 Date Je Ceron MD CC: Jonel Rashid MD; Nia Uriostegui DO; [facility] des Parsons Date Dictated: 12/11/17 1408 Date Transcribed: 12/11/171818 Business Planner: Signed 04-Nov-2017 Operative Report Result: Comments: See Note; NOTES: [facility] Medical Records Department [address] [place] [address] Operative Report 11/03/17 1228 MR#: [id number] Acct: [id number] Name: COMFORT OLSON Rep #: [id number] : 1940 76 From: Partick Ellsworth MD PCP: Nia Uriostegui DO Status: DEP [facility] Y Location: [facility] Problem List (1) New onset atrial flutter Status: Acute (2) 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 transplanted heart: comanche heart Qualified Code(s): I25.10 - Atherosclerotic heart disease of comanche nitin nary artery without angina pectoris Comment: 08/06/2004 CABG x2 VILLAGRAN side to side to second Diagonal and end to side to Anterior Descending artery in Sequential fashion. [facility]: 08/01/2004; 10/15/2011 (3) Cardiomyopathy in diseases classified [...] is a 76-year-old female who presented to [facility] for an elective outpat ient cardioversion due [...] Visit 9xxxx: Other Procedure See Report - [id number] 11/04/17 0525 <Electronically signed by Patrick Ellsworth MD> Date Patrick Ellsworth MD CC: Patrick Ellsworth MD; Jonel Rashid MD; Nia Uriostegui DO Signed 03-Nov-2017 Operative Report Result: Comments: See Note; NOTES: [facility] Medical Records Department [address] [place] [address] Operative Report 11/03/174 MR#: [id number] Acct: [id number] Name: COMFORT OLSON Rep #: [id number] : 1940 76 From: Jonel Rashid MD PCP: Nia Uriostegui DO Status: REG SDC Y Location: [facility] Operative Report Date of Procedure: 11/03/17 [...] Visit Report Result: Comments: See Note; NOTES: [facility] 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 Arrangements were made at the [facility] for the above to be considered. In [...] bundle branch block. 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 (pricing consultant) Coding Level of Care Code Off vis,est,level [...] Lead Electrocardiogram Result: Comments: See Note; NOTES: [facility] Cardiovascular Services [address] [place] [address] 12 Lead EKG 10/05/17 0149 MR#: [id number] Acct: [id number] Name: COMFORT OLSON Rep # : [id number] : 1940 76 From: Jonel Rashid MD [...] ECG Confirmed by JONEL RASHID MD ([id number]), visual effects editor AMIRA CASTRO (56) on 10/07/2017 2:45:19 PM Referred By: Jonel Rashid Confirmed By:JONEL RASHID MD 10/07/17 1462 Date _ Jonel Rashid MD CC: Emery Allen MD; Nia Uriostegui DO Signed 07-Oct-2017 12 Lead Electrocardiogram Result: Comments: See Note; NOTES: [facility] Cardiovascular Services [address] [place] [address] 12 Lead EKG 10/05/17 0333 MR#: [id number] Acct: [id number] Name: COMFORT OLSON Rep # : [id number] : 1940 76 From: Jonel Rashid MD [...] ECG Confirmed by JONEL RASHID MD ([id number]), visual effects editor AMIRA CASTRO (56) on 10/07/2017 2:42:56 PM Referred By: Kathleen Rashid Confirmed By:JONEL RASHID MD 10/07/17 1442 Date Jonel Rashid MD CC: Emery Allen MD; Nia Uriostegui DO Signed 05-Oct-2017 Discharge Instruction Result: Comments: See Note; NOTES: [facility] Medical Records Department [address] [place] [address] Discharge Instruction 10/05/17 0440 MR#: [id number] Acct: [id number] Name: Liyah OLSON Rep #: [id number] : 1940 76 From: Emery Allen MD [...] Primary Care Provi latrell. Call [facility] ([phone]) or report to the closest Emergency Room. Call 911 if necessary. 10/05/17 0528 <Electronically signed by Emery Allen MD> Date ____ Emery Allen MD Cosigner Signature (If Indicated): Date CC: Nia Uriostegui DO 05-Oct-2017 Emergency Department Summary Result: Comments: See Note; NOTES: [facility] Medical Records Department [address] [place] [address] Emergency Department Summary 10/05/17 0435 MR#: [id number] Acct: [id number] Name: COMFORT OLSON Rep #: [id number] : 1940 76 From: Emery Allen MD [...] flutter This not e was generated with BrightWhistle dictation software. It may contain incorrect words, [...] your Primary Care Provider. Call [facility] ([phone]) or report to the closest Emergency Room. Call 911 if necessary. 10/05/17 0528 &#60 ;Electronically signed by Emery Allen MD> Date Emery Allen MD Cosigner Signature (If Indicated): Date CC: Nia Uriostegui DO 05-Oct-2017 Chest 1 View (Portable) Result: Comments: See Note; NOTES: [facility] Imaging Services [address] [place] [address] Chest 1 View (Portable) MR#: [id number] Acct: [id number] Name: COMFORT OLSON Rep #: [id number] : 1940 F 76 From: Chris Dwyer MD PCP: Nia Uriostegui DO Status: REG ER Study: Chest 1 View (Portable) Date of Exam: 10/05/17 Exam# [id number] Ordering Dr: Emery Allen MD STUDY: X-R [...] of the upper abdomen. ORDER # : [id number] RAD/Chest 1 View (Portable) IMPRESSION: Mild cardiomegaly. Minimal persistent left basilar atelectasis. No evidence for acute cardiopulmonary pathology. Electronically Signed: Chris Dwyer MD at 2:42 EDT , Service support , CC: Emery Allen MD; Nia Uriostegui DO Business Planner: Signed 03-Oct-2017 12 Lead Electrocardiogram Result: Comments: See Note; NOTES: [facility] Cardiovascular Services [address] [place] [address] 12 Lead EKG 10/02/17 1353 MR#: [id number] Acct: [id number] Name: COMFORT OLSON Rep # : [id number] : 1940 76 From: Jonel Rashid MD [...] ECG Confirmed by JONEL RASHID MD ([id number]), visual effects editor AMIRA CASTRO (56) on 10/03/2017 1:43:28 PM Referred By: Jonel Rashid Confirmed By:USMAN RASHID MD 10/03/17 1343 Date Jonel Rashid MD CC: JOSSELYN Lombardo; Jonel Rashid MD; Nia Uriostegui DO Signed 02-Oct-2017 Echo, Complete w/ Contrast Result: Comments: See Note; NOTES: [facility] Cardiovascular Services [address] [place] [address] Echo Complete W/ Contrast 10/02/17 1250 MR#: [id number] Acct: [id number] Name: COMFORT JONES Rep #: [id number] : 1940 76 From: Jonel Rashid MD Attending Dr: Gay ROSAS,Jonel Status: REG CLI Ordering Dr: Jonel Rashid MD Date: 10/02/17 Location: [facility] Sex: F C Admitted: Reason [...] Date Dictated: 10/02/17 1250 Date Transcribed: 10/02/171742 Business Planner: Signed 02-Oct-2017 12 Lead Electrocardiogram Result: Comments: See Note; NOTES: [facility] Cardiovascular Services [address] [place] [address] 12 Lead EKG 09/29/17 1035 MR#: [id number] Acct: [id number] Name: COMFORT OLSON Rep # : [id number] : 1940 76 From: Antonio Tovar MD [...] ECG Confirmed by ZARA ROSAS, ANTONIO ([id number]), visual effects editor AMIRA CASTRO (56) on 10/02/2017 1:30:21 PM Refer red By: BOZENA Confirmed By:ANTONIO TOVAR MD 10/02/17 1330 Date Antonio Tovar MD CC: Nia Uriostegui DO; Jignesh Tello MD Signed 02-Oct-2017 12 Lead Electrocardiogram Result: Comments: See Note; NOTES: [facility] Cardiovascular Services [address] [facility] [address] 12 Lead EKG 09/29/17 1020 MR#: [id number] Acct: [id number] Name: COMFORT OLSON Rep # : [id number] : 1940 76 From: Antonio Tovar MD [...] Abnormal ECG Confirmed by ANTONIO TOVAR MD ([id number]), AMIRA Roldan (56) on 10/02/2017 1:27:54 PM Referred By: BOZENA Confirmed By:ANTONIO TOVAR MD 10/02/17 1327 Date Antonio Tovar MD CC: Nia Uriostegui DO; Jignesh Tello MD Signed 02-Oct-2017 12 Lead Electrocardiogram Result: Comments: See Note; NOTES: [facility] Cardiovascular Services [address] [place] [address] 12 Lead EKG 09/29/17 0905 MR#: [id number] Acct: [id number] Name: COMFORT OLSON Rep # : [id number] : 1940 76 From: Antonio Tovar MD [...] Abnormal ECG Confirmed by ANTONIO TOVAR MD ([id number]), visual effects editor AMIRA CASTRO (56) on 10/02/2017 1:27:13 PM Referred By: BOZENA Anne d By:ANTONIO TOVAR MD 10/02/17 1327 Date Antonio Tovar MD CC: Nia Uriostegui DO; Jignesh Tello MD Signed 02-Oct-2017 12 Lead Electrocardiogram Result: Comments: See Note; NOTES: [facility] Cardiovascular Services [address] [place] [address] 12 Lead EKG 09/29/17 0926 MR#: [id number] Acct: [id number] Name: COMFORT OLSON Rep # : [id number] : 1940 76 From: Antonio Tovar MD [...] branch block Abnormal ECG Confirmed by ZARA ROASS, ANTONIO ([id number]), visual effects editor AMIRA CASTRO (56) on 10/02/2017 1:26:27 PM Referr ed By: BOZENA Confirmed By:ANTONIO TOVAR MD 10/02/171325 Date Antonio Tovar MD CC: Nia Uriostegui DO; Jignesh Telol MD Signed 29-Sep-2017 Emergency Department Summary Result: Comments: See Note; NOTES: [facility] Medical Records Department [address] [place] [address] Emergency Department Summary 09/29/17 0912 MR#: [id number] Acct: [id number] Name: COMFORT OLSON Rep #: [id number] : 1940 76 From: Jignesh Tello MD [...] Sinus bradycardia. This note was generated with BrightWhistle dictation software. It may contain incorrect words, [...] problems, contact your Primary Care Provider. Call [employer] [facility] ([phone]) or report to the closest Emergency Room. Call 911 if necessary. 09/29/17 3000 <Electronically si gned by Jignesh Tello MD> Date Jignesh Tello MD Cosigner Signature (If Indicated): Date CC: Nia Uriostegui DO 29-Sep-2017 Chest 1 View (Portable) Result: Comments: See Note; NOTES: [facility] Imaging Services [address] [place] [address] Chest 1 View (Portable) MR#: [id number] Acct: [id number] Name: COMFORT OLSON Rep #: [id number] : 1940 F 76 From: John Babcock MD PCP: Nia Uriostegui DO Status: REG ER Study: Chest 1 View (Portable) Date of Exam: 09/29/17 Exam# [id number] Ordering Dr: Jignesh Tello MD STUDY: X-RAY [...] John Babcock MD at 9:55 EDT Tel [phone], Service support , CC: Nia Uriostegui DO; Jignesh Tello MD Business Planner: Signed 25-Sep-2017 Cardiology Visit Report Result: Comments: See Note; NOTES: [facility] [address] [place] [address] OFFICE VISIT Date of Service: 09/25/17 MR#: [id number] Acct: [id number] Name: COMFORT OLSON p #: [id number] : 1940 Provider: Jonel Rashid MD Age/Sex: 76/F Location: [facility] Status: Signed HPI HPI Chief Complaint: Follow [...] brachial Intake Visit Reasons: 6 M FU Patient Care Secretary Required: No Accompanied by: nonw Is patient [...] BID 08/24/17 [History Confirmed 09/25/17] Met hscopolamine Agness 5 mg PO BID 08/24/17 [History Confirmed [...] PO QDAY tab 09/25/17 [History Confirmed 09/25/17] FOR[facility]LY [facility] Medical History Other secondary pulmonary hypertension (Chronic) Cardiomyopathy in diseases classified elsewhere (Chronic) Other cerebral infarction (Chronic) Paroxysmal atrial fibrillation (Chroni c) Atrial enlargement, 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 4. Atherosclerosis of comanche coronary artery of comanche heart without angina pectoris I25.10 08/06/2004 CA BG x2 VILLAGRAN side to side to second Diagonal and end to side to Anterior Descending artery in Sequential fashion. [facility]: 08/01/2004; 10/15/2011 Plan She does have a [...] Other Medications New: Follow Up 6 Months (pricing consultant) Coding Level of Care Code Off vis,est,level 4 Diagnoses Paroxysmal atrial fibrillation I48.0 Cardiomyopathy in diseases c lassified elsewhere I43 Essential hypertension I10 Hypertension type: essential hypertension Atherosclerosis of comanche coronary artery of comanche heart without angina pectoris I25.10 [place] vs. transplan joel heart: comanche heart Mixed hyperlipidemia E78.2 Hyperlipidemia type: mixed hyperlipidemia Coding Level of Care Code Off vis,est,level 4 Diagnoses Paroxysmal atrial fibrillation I48.0 Cardiomyopath y in diseases classified elsewhere I43 Essential hypertension I10 Hypertension type: essential hypertension Atherosclerosis of comanche coronary artery of comanche heart without angina pectoris I25.10 [place] vs. transplanted heart: comanche heart Mixed hyperlipidemia E78.2 Hyperlipidemia type: mixed hyperlipidemia 09/25/17 1029 <Electronically signed by Jonel Rashid MD> Date __ Jonel Rashid MD Cosigner Signature: Date (if applicable) CC: Nia Uriostegui DO 26-Aug-2017 12 Lead Electrocardiogram Result: Comments: See Note; NOTES: [facility] Cardiovascular Services [address] [place] [address] 12 Lead EKG 08/24/17 1336 MR#: [id number] Acct: [id number] Name: COMFORT OLSON Rep # : [id number] : 1940 76 From: Jonel Rashid MD [...] ECG Confirmed by JONEL RASHID MD (1080), visual effects editor AMIRA CASTRO (56) on 08/26/2017 1:37:24 PM Referred B y: YONI Confirmed By:JONEL RASHID MD 08/26/17 1337 Date Jonel Rashid MD CC: Nia Uriostegui DO; Alexis Kemp MD Signed 26-Aug-2017 12 Lead Electrocardiogram Result: Comments: See Note; NOTES: [facility] Cardiovascular Services [address] [place] [address] 12 Lead EKG 08/24/17 0956 MR#: [id number] Acct: [id number] Name: COMFORT OLSON Rep # : [id number] : 1940 76 From: Jonel Rashid MD [...] ECG Confirmed by GAY ROSAS, JONEL (1080), visual effects editor AMIRA CASTRO (56) on 08/26/2017 12:50:18 PM Referred By: YONI Confirmed By:JONEL RASHID MD 08/26/17 1250 Date Jonel Rashid MD CC: Nia Uriostegui DO; Alexis Kemp MD Signed 24-Aug-2017 Emergency Department Summary Result: Comments: See Note; NOTES: [facility] Medical Records Department [address] [place] [address] Emergency Department Summary 08/24/17 1336 MR#: [id number] Acct: [id number] Name: COMFORT OLSON Rep #: [id number] : 1940 76 From: Alexis Kemp MD [...] coronary disease This note was generated with BrightWhistle dictation software. It may contain in correct [...] your Primary Care Provider. Call [facility] ([phone]) or report to the [facility] Emergency Room. Call 911 if necessary. 08/24/17 1340 <Electronically signed by Alexis Kemp MD> Date Alexis Villasenor Signdanutau re (If Indicated): Date CC: Jonel Rashid MD; Nia Uriostegui DO 24-Aug-2017 Chest PA and Lateral Result: Comments: See Note; NOTES: [facility] Imaging Services [address] [place] [address] Chest PA and Lateral MR#: [id number] Acct: [id number] Name: COMFORT OLSNO Rep #: [id number] : 1940 F 76 From: Clyde Matute MD PCP: Nia Uriostegui DO Status: REG ER Study: Chest PA and Lateral Date of Exam: 08/24/17 Exam# [id number] Ordering Dr: Alexis Kemp MD STUDY: X-RAY [...] CC: Nia Uriostegui DO; Alexis Kemp MD Business Planner: Signed 02-Jun-2017 12 Lead EKG performed by [facility] Result: Comments: See Note; NOTES: [facility] [address] [place] [address] 12 Lead EKG performed by [facility] 06/02/17 1121 MR#: [id number] Acct: [id number] Name: COMFORT OLSON Rep #: [id number] : 1940 76 From: Annemarie BLOOD Attending Dr: Annemarie Parsons Status: DEP AMB Ordering Dr: Annemarie Parsons Date: 06/02/17 Location: [facility] Sex: F C Admitted: [facility]/12 Lead EKG performed by [facility] ECG Report Interpretation Sinus Rhythm -Intraventricular conduction defect and left axis -possible anterior fas cicular block consider ventricular hypertrophy. - Nonspecific T-abnormality. ABNORMAL Electronically signed on 06/04/2017 at 14:14 by Jonel Rashid 06/04/17 1415 Date Annemarie BLOOD CC: Nia Uriostegui DO Date Dictated: 06/02/17 112 Date Transcribed: 06/02/171120 Business Planner: BARBY Signed 29-May-2017 Cardiology Visit Report Result: Comments: See Note; NOTES: [facility] [address] [place], [place] [address]. [address] [place] [address] OFFICE VISIT Date of Service: 05/26/17 MR#: [id number] Acct: [id number] Name: COMFORT OLSON Re p #: [id number] : 1940 Provider: Annemarie Parsons Age/Sex: 76/F Location: [facility] Status: Signed HPI HPI Details: COMFORT OLSON, [...] surgery in 2004. 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 2. Atherosclerosis of comanche coronary artery of comanche heart without angina pectoris I25.10 08/06/2004 CABG x2 VILLAGRAN side to side to second Diagonal and end to side to Anterior Sidney cending artery in Sequential fashion. [facility]: 08/01/2004; 10/15/2011 Plan - JEREMI Mcpherson . [...] 1 Week (EKG) 05/26/17 (keep appt with VACUUM FILTER OPERATOR) Coding Level of Care Code Off vis,est,level 4 Diagnos es Dyspnea on exertion R06.09 Atherosclerosis of comanche coronary artery of comanche heart without angina pectoris I25.10 [place] vs. transplanted heart: comanche heart Essential hypertension I10 Hypertension type: essential hypertension Mixed hyperlipidemia E78.2 Hyperlipidemia type: mixed hyperlipidemia Paroxysmal atrial fibrillation I48.0 Atrial fibrillation type: paroxysmal Coding Level of Care Code O ff vis,est,level 4 Diagnoses Dyspnea on exertion R06.09 Atherosclerosis of comanche coronary artery of comanche heart without angina pectoris I25.10 [place] vs. transplanted heart: comanche heart Essential hy pertension I10 Hypertension type: [...] Result: Comments: See Note; NOTES: [facility] [address] [place] [address] 12 Lead EKG performed by CARLOS EDUARDO 05/26/17 1521 MR#: [id number] Acct: [id number] Name: COMFORT OLSON Rep #: [id number] : 1940 76 From: Annemarie BLOOD Attending Dr: Annemarie Parsons Status: DEP AMB Ordering Dr: Annemarie Parsons Date: 05/26/17 [place] [facility] [place] F C Admitted: B[facility]/12 Lead EKG performed by [facility] ECG Report Interpretation Marked sinus Bradycardia -Poor R-wave progression - nonspecific -consider old anterior infarct. -Nonspecific ST depression -Nondiagnostic. ABNORMAL Electronically signed on 05/27/2017 at 08:40 by Jonel Rashid 05/27/17 0841 Date Annemarie BLOOD CC: Nia Uriostegui DO Date Dictated: 05/26/17 1521 Date Transcribed: 05/26/17 152 Business Planner: BARBY Signed 16-May-2017 Office Visit Report Result: Comments: See Note; NOTES: [address] [address] OFFICE VISIT Date of Service: 05/16/17 MR#: [id number] Acct: [id number] Patient: COMFORT OLSON Rep #: [id number] : 1940 Provider: Jonel Rashid MD Age/Sex: 76/F [place] [facility]: Signed Intake Intake Visit Reasons: EKG [...] SON Y 11/11/16 [History Confirmed 05/14/17] Methscopolamine Agness 5 mg PO BID 11/11/16 [History Confirmed [...] Orozco 16-May-2017 12 Lead EKG performed by [facility] Result: Comments: See Note; NOTES: [facility] [address] [place] [address] 12 Lead EKG performed by [facility] 05/16/171043 MR#: [id number] Acct: [id number] Name: COMFORT OLSON Rep #: [id number] : 1940 76 From: Annemarie BLOOD Attending Dr: Jonel Rashid MD Status: DEP AMB Ordering Dr: Annemarie Parsons Date: 05/16/17 Location: [facility] Sex: F C Adm itted: [facility]/12 Lead EKG performed by [facility] Sinus Bradycardia -Poor R-wave progression -may be secondary to pulmonary isease consider old anterior infarct. Rightward P/QRS axis and rota tion possible pulmonary disease. ABNORMAL 05/16/171649 <Electronically signed by Annemarie BLOOD> Date Annemarie BLOOD CC: Nia Uriostegui DO Date Dictated: 05/16/171043 Date Transcribed: 05/16/171043 Business Planner: BARBY Signed 16-May-2017 12 Lead EKG performed by [facility] Result: Comments: See Note; NOTES: [facility] [address] [place] [address] 12 Lead EKG performed by [facility] 05/16/17 1044 MR#: [id number] Acct: [id number] Name: COMFORT OLSON Rep #: [id number] : 1940 76 From: Annemarie BLOOD Attending Dr: Jonel Rashid MD Status: DEP AMB Ordering Dr: Annemarie Parsons Date: 05/16/17 Location: [facility] Sex: F C Adm itted: BMS/12 Lead EKG performed by [facility] ECG Report Interpretation Sinus Bradycardia -Poor R-wave progression -may be secondary to pulmonary disease conside r old anterior infarct. Rightward P/QRS axis and rotation -possible pulmonary disease. ABNORMAL Electronically signed on 05/17/2017 at 18:31 by Jonel Rashid 05/17/17 1834 Date Annemarie BLOOD CC: Nia Uriostegui DO Date Dictated: 05/16/17 1044 Date Transcribed: 05/16/171043 Business Planner: BARBY Signed 14-May-2017 Cardiology Visit Report Result: Comments: See Note; NOTES: [facility] [address] [place] [address] OFFICE VISIT Date of Service: 05/14/17 MR#: [id number] Acct: [id number] Name: COMFORT OLSON Re p #: [id number] : 1940 Provider: Annemarie Parsons Age/Sex: 76/F Location: [facility] Status: Signed HPI HPI Details: COMFORT OLSON, is a 76 F who presents to the office today for an urgent appointm ent for increased shortness of breath. Patient does have a hospital of coronary artery disease with bypass surgery in 2004. 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 Ath erosclerosis of comanche coronary artery of comanche heart without angina pectoris I25.10 08/06/2004 CABG [...] Diagnoses Paroxysmal atrial fibrillation I48.0 Atherosclerosis of comanche coronary artery of comanche heart without angina pectoris I25.10 [place] vs. transplanted heart: comanche heart Essential hy pertension I10 Hypertension type: essential hypertension Mixed hyperlipidemia E78.2 Hyperlipidemia type: mixed hyperlipidemia Coding Level of Care Code Off vis,est,level 4 Diagnoses Paroxysmal atrial fibrillation I48.0 Atherosclerosis of comanche coronary artery of comanche heart without angina pectoris I25.10 [place] vs. transplanted heart: comanche heart Essential hypertension I10 Hypertension type: ess ential hypertension Mixed hyperlipidemia E78.2 Hyperlipidemia type: mixed hyperlipidemia 05/14/17 1718 <Electronically signed by Annemarie BLOOD> Date Annemarie BLOOD 05/14/17 1732<Electronically signed by Jonel Rashid MD> Cosigner Signature: Date (if applicable) Jonel Rashid MD CC: Nia Uriostegui 14-May-2017 12 Lead EKG performed by [facility] Result: Comments: See Note; NOTES: [facility] [address] [place] [address] 12 Lead EKG performed by [facility] 05/14/17 1104 MR#: [id number] Acct: [id number] Name: COMFORT OLSON Rep #: [id number] : 1940 76 From: Annemarie BLOOD Attending Dr: Annemarie Parsons Status: DEP AMB Ordering Dr: Annemarie Parsons Date: 05/14/17 Location: [facility] Sex: F C Admitted: BMS/12 Lead EKG performed by [facility] Marked sinus Bradycardia -Intraventricular conduction defect -consider left entricular hypertrophy. -Lateral infarct -age undetermined. - -abnormality -Possible Inferior and lateral ischemia. ABNORMAL 05/15/17 1041 <Electronically signed by Annemarie BLOOD> Date M farhan BLOOD CC: Nia Uriostegui DO Date Dictated: 05/14/171103 Date Transcribed: 05/14/171103 Business Planner: BARBY Signed 14-May-2017 12 Lead EKG performed by [facility] Result: Comments: See Note; NOTES: [facility] [address] [place] [address] 12 Lead EKG performed by [facility] 05/14/171103 MR#: [id number] Acct: [id number] Name: COMFORT OLSON Rep #: [id number] : 1940 76 From: Annemarie BLOOD Attending Dr: Annemarie Parsons Status: DEP AMB Ordering Dr: Annemarie Parsons Date: 05/14/17 Location: [facility] Sex: F C Admitted: BMS/12 Lead EKG performed by [facility] ECG Report Interpretation Marked sinus Bradycardia -Intraventricular conduction defect -consider left ventricul ar hypertrophy. -Lateral infarct -age undetermined. - T-abnormality -Possible Inferior and lateral ischemia. ABNORMAL Electronically signed on 05/17/2017 at 18:31 by Jonel Rashid 05/17/17 1834 Date __ Annemarie BLOOD CC: Nia Uriostegui DO Date Dictated: 05/14/171103 Date Transcribed: 05/14/171103 Business Planner: BARBY Signed 09-May-2017 Office Visit Report Result: Comments: See Note; NOTES: [facility] [address] [place] [address]. 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 Allergies No Known Allergies Allergy (Verified [...] PO DAILY 11/11/16 [History Confirmed 04/19/17] Methscopolamine Agness 5 mg PO BID 11/11/16 [History Confirmed [...] Seaman 09-May-2017 12 Lead EKG performed by [facility] Result: Comments: See Note; NOTES: [facility] [address] [place] [address] 12 Lead EKG performed by [facility] 05/09/17 1110 MR#: [id number] Acct: [id number] Name: COMFORT OLSON Rep #: [id number] : 1940 76 From: Jonel Rashid MD Attending Dr: Albert Kerr RN Status: DEP AMB Ordering Dr: Jonel Rashid MD Date: 05/09/17 Location: [facility] Sex: F C Admitted: BMS/12 Lead EKG performed by [facility] ECG Report Interpretation Sinus Rhythm -Nonspecific QRS widening and anterior fascicular block. -Poor R-wave progression -nonspec ific -consider old anterior infarct. -Nonspecific ST depression -Nondiagnostic. ABNORMAL Electronically signed on 05/17/2017 at 18:31 by Jonel Rashid 05/17/17 1834 Date Jonel Rashid MD CC: Nia Uriostegui DO Date Dictated: 05/09/171109 Date Transcribed: 05/09/171109 Business Planner: CO Signed 09-May-2017 12 Lead EKG performed by [facility] Result: Comments: See Note; NOTES: [facility] [address] [place] [address] 12 Lead EKG performed by [facility] 05/09/171109 MR#: [id number] Acct: [id number] Name: COMFORT OLSON Rep #: [id number] : 1940 76 From: Jonel Rashid MD Attending Dr: Albert Kerr RN Status: DEP AMB Ordering Dr: Jonel Rashid MD Date: 05/09/17 [place] [facility] Sex: F C Admitted: BMS/12 Lead EKG performed by [facility] Sinus Rhythm -Nonspecific QRS widening and anterior fascicular block. -Poor -wave progression -nonspecific -consider old anterior infarct. -Nonspecific T d epression -Nondiagnostic. ABNORMAL 05/09/17 1610 <Electronically signed by Jonel Rashid MD> Date Jonel Rashid MD CC: Nia Beth O Date Dictated: 05/09/171109 Date Transcribed: 05/09/171109 Business Planner: CO Signed 06-May-2017 12 Lead Electrocardiogram Result: Comments: See Note; NOTES: [facility] [address] [place] [address] 12 Lead EKG 05/04/17 2237 MR#: [id number] Acct: [id number] Name: COMFORT OLSON Rep # : [id number] : 1940 76 From: Jonel Rashid MD [...] ECG Confirmed by GAY ROSAS, JONEL ([id number]), visual effects editor AMIRA CASTRO ([id number]) on 05/06/2017 1:42:52 PM Referred By: DONY Confirmed By:JONEL RASHID MD 05/06/17 1342 Date Jonel Rashid MD CC: Natalya Napoles MD; Nia Uriostegui Signed 06-May-2017 12 Lead Electrocardiogram Result: Comments: See Note; NOTES: [facility] [address] [place] [address] 12 Lead EKG 05/04/17 2045 MR#: [id number] Acct: [id number] Name: COMFORT OLSON Rep # : [id number] : 1940 76 From: Jonel Rashid MD [...] ECG Confirmed by JONEL RASHID MD ([id number]), visual effects editor AMIRA CASTRO ([id number]) on 05/06/2017 1:08:29 PM Referred By: RICKY NAPOLES Confirmed By:JONEL RASHID MD 05/06/17 1308 Date Jonel Rashid MD CC: Natalya Napoles MD; Nia Uriostegui DO Signed 04-May-2017 Emergency Department Summary Result: Comments: See Note; NOTES: [facility] Medical Records Department [address] [facility] [place] [address] Emergency Department Summary 05/04/17 2259 MR#: [id number] Acct: [id number] Name: COMFORT OLSON Rep #: [id number] : 1940 76 From: Natalya Napoles MD [...] ED physician This note was generated with [employer] dictation software. It may contain incorre ct words, spelling, and punctuation that were not noted in review of the chart prior to signing ED Disposition - Plan for ED Patient: Chief Complaint: Palpitations Referrals: Nia Uriostegui, [[facility] Care Provider] - What to do if you have Problems For any increased pain, shortness of breath, bleeding, nausea or vomiting, chest pain, or any unexpected problems, contact your Primary Care Pro vider. Call Doctors Registry ([phone]) or report to the closest Emergency Room. Call 911 if necessary. 05/04/17 2955 <Electronically signed by Natalya Napoles MD> Date Natalya Napoles MD Cosigner Signature (If Indicated): Date CC: Nia Uriostegui 04-May-2017 Discharge Instruction Result: Comments: See Note; NOTES: [facility] Medical Records Department [address] [place] [address] Discharge Instruction 05/04/172339 MR#: [id number] Acct: [id number] Name: Liyah OLSON Rep #: [id number] : 1940 76 From: Natalya Napoles MD [...] your Primary Care Provider. Call [facility] ([phone]) or report to the closest Emergency Room. Call 911 if necessary. 05/04/172340 <Electronically signed by Natalya Napoles MD> Date Natalya mary MD Cosigner Signature (If Indicated): Date CC: Nia Moody DO 04-May-2017 Chest 1 View (Portable) Result: Comments: See Note; NOTES: [facility] Imaging Services [address] [place] [address] Chest 1 View (Portable) MR#: [id number] Acct: [id number] Name: COMFORT OLSON Rep #: [id number] : 1940 F 76 From: Rafael Perez MD PCP: Nia Uriostegui DO Status: REG ER Study: Chest 1 View (Portable) Date of Exam: 05/04/17 Exam# [id number] Ordering Dr: Natalya Napoles MD STUDY: X [...] CC: Natalya Napoles MD; Nia Uriostegui DO Business Planner: Signed 19-Apr-2017 Emergency Department Summary Result: Comments: See Note; NOTES: [facility] Medical Records Department [address] [place] [address] Emergency Department Summary 04/19/17 1757 MR#: [id number] Acct: [id number] Name: COMFORT OLSON Rep #: [id number] : 1940 76 From: Deisi Ryan MD [...] with RVR This note was generated with [employer] software. It may contain incorrect words, spelling, [...] your Primary Care Provider. Call [facility] ([phone]) or report to the closest Emergency Room. Call 911 if necessary. 04/19/171930 <Electronically signed by Deisi moscoso MD> Date Deisi Ryan MD Cosigner Signature (If Indicated): Date CC: Nia Uriostegui DO 19-Apr-2017 Chest 1 View (Portable) Result: Comments: See Note; NOTES: [facility] Imaging Services [address] [place] [address] Chest 1 View (Portable) MR#: [id number] Acct: [id number] Name: COMFORT OLSON Rep #: [id number] : 1940 F 76 From: Thanh Ambriz MD PCP: Nia Uriostegui DO Status: PRE ER Study: Chest 1 View (Portable) Date of Exam: 04/19/17 Exam# [id number] Ordering Dr: Deisi Ryan MD STUDY: X- [...] CC: Deisi Ryan MD; Nia Uriostegui DO Business Planner: Signed 14-Mar-2017 Cardiology Visit Report Result: Comments: See Note; NOTES: [facility] [address] [place] [address] OFFICE VISIT Date of Service: 03/14/17 MR#: [id number] Acct: [id number] Name: COMFORT OLSON p #: [id number] : 1940 Provider: JOSSELYN Lombardo Age/Sex: 76/F Location: [facility] Status: Signed HPI 3 M FU: Details: [...] less than 30% stenosis. Patient returned to [facility] approximately one week later and showed a [...] Intak e Visit Reasons: 3 M FU Patient Care Secretary Required: No Accompanied by: None Is patient [...] DAILY 11/11/16 [History Confirmed 02/28/17] M ethscopolamine Agness 5 mg PO BID 11/11/16 [History Confirmed [...] enlargement, left (Chronic) Atherosclerotic heart disease of comanche coronary artery without cynthia na pectoris (Chronic) [...] updated BP readings. 3. Atheroscle rosis of comanche coronary artery of comanche heart without angina pectoris I25.10 08/06/2004 CABG [...] to sa lance. Follow Up 6 Months (VACUUM FILTER OPERATOR) Coding Level of Care Code Off vis,est,level 3 Diagnoses Essential hypertension I10 Hypertension type: essential hypertension Cardiomyopathy in diseases classified elsew here I43 Atherosclerosis of comanche coronary artery of comanche heart without angina pectoris I25.10 [place] vs. transplanted heart: comanche heart Paroxysmal atrial fibrillation I48.0 Mixed hyperlipidemia E7 8.2 Hyperlipidemia type: mixed hyperlipidemia Coding Level of Care Code Off vis,est,level 3 Diagnoses Essential hypertension I10 Hypertension type: essential hypertension Cardiomyopathy in diseases c lassified elsewhere I43 Atherosclerosis of comanche coronary artery of comanche heart without angina pectoris I25.10 [place] vs. transplanted heart: comanche heart Paroxysmal atrial fibrillation I48.0 Mixed hy perlipidemia E78.2 Hyperlipidemia type: mixed hyperlipidemia 03/14/17 1154 <Electronically signed by Richard FREGOSOC> Date Richard Lombardo MANUAL ARTS THERAPIST-C 03/14/17 1527<Electronically signed by Jonel Rashid MD> Cosigner Signature: Date (if applicable) Jonel Rashid MD CC: Nia Uriostegui DO 10-Mar-2017 Echo, Complete w/ Contrast Result: Comments: See Note; NOTES: [facility] [address] [place] [address] Echo Complete W/ Contrast 03/10/17 1008 MR#: [id number] Acct: [id number] Name: COMFORT JONES Rep #: [id number] : 1940 76 From: Jonel Rashid MD Attending Dr: Jonel Rashid MD Status: REG I Ordering Dr: Jonel Rashid MD Date: 03/10/17 Location: [facility] Sex: F C Admitted: Reason [...] 03/10/17 1008 Date Transcr ibed: 03/10/17 1412 Business Planner: Signed 13-Nov-2016 CTA Chest W/WO Contrast Result: Comments: See Note; NOTES: [facility] Imaging Services [address] [place] [address] CTA Chest W/WO Contrast MR#: [id number] Acct: [id number] Name: COMFORT OLSON Rep #: [id number] : 1940 F 75 From: Charly Almendarez DO PCP: Nia Uriostegui DO Status: REG ER Study: CTA Chest W/WO Contrast Date of Exam: 11/13/16 Exam# [id number] Ordering Dr: Emery Allen MD STUDY: CTA [...] CC: Emery Allen MD; Nia Uriostegui DO Business Planner: Signed 11-Nov-2016 Chest 1 View (Portable) Result: Comments: See Note; NOTES: [facility] Imaging Services [address] [place] [address] Chest 1 View (Portable) MR#: [id number] Acct: [id number] Name: COMFORT OLSON Rep #: [id number] : 1940 F 75 From: Jorge Herman MD PCP: Nia Uriostegui DO Status: REG ER Study: Chest 1 View (Portable) Date of Exam: 11/11/16 Exam# [id number] Ordering Dr: Jignesh Tello MD STUDY: X-RA [...] CC: Nia vo DO; Jignesh Tello MD Business Planner: Signed 16-Jan-2016 Chest PA and Lateral Result: Comments: See Note; NOTES: [facility] Imaging Services [address] [place] [address] Verda 4d Chest PA and Lateral MR#: [id number] Acct: [id number] Name: COMFORT OLSON Rep #: [id number] : 1940 F 75 From: John Babcock MD PCP: Balbir Cramer Status: REG CLI Study: Chest PA and Lateral Date of Exam: 01/16/16 Exam# [id number] Ordering Dr: Balbir Cramer STUDY: X-RAY CHEST [...] John Babcock MD at 13:26 EST Tel [phone], Service support , CC: Balbir Cramer Business Planner: Signed 14-Dec-2014 Bilat Scrn Digital AND CAD Result: Comments: See Note; NOTES: [facility] Imaging Services [address] [place] [address] Verdana 4d Bilat Scrn Digital AND CAD MR#: [id number] Acct: [id number] Name: COMFORT OLSON Rep #: [id number] : 1940 F 74 From: John Babcock MD PCP: Maylin Melendez DO Status: REG CLI Study: Bilat Scrn Digital AND CAD Date of Exam: 12/14/14 Exam# [id number] Ordering D r: Maylin Melendez DO MAMMOGRAPHY [...] John Babcock MD at 14:05 EST Tel [phone], Service support [phone], CC: Maylin Melendez DO Business Planner: Signed 14-Dec-2014 Carotid Duplex Ultrasound Result: Comments: See Note; NOTES: [facility] [address] [place] [address] Carotid Duplex Ultrasound 12/12/14 1007 MR#: [id number] Acct: [id number] Name: COMFORT OLSON Rep #: [id number] : 1940 74 From: Darian Anderson MD Attending Dr: Maylin Melendez DO Status: REG CLI Ordering Dr: Maylin Melendez DO Date: 12/12/14 Location: [facility] Sex: F C Admi tted: [...] the left vertebral artery. Procedure Carotid Duplex 15922. Exam performed in department. Interpreta tion Summary [...] Date Dictated: 12/12/14 1007 Date Transcribed: 12/14/1437 Business Planner: Signed 25-Apr-2014 Nuclear Stress Test - Chemical Result: Comments: See Note; NOTES: [facility] Imaging Services [address] [place] [address] Nuclear Medicine Report MR#: [id number] Acct: [id number] Name: COMFORT OLSON Rep #: [id number] : 1940 F 73 From: Jonel Rashid MD PCP: Maylin Melendez DO Status: REG CLI Study: Nuclear Stress Test - Chemical Date of Exam: 04/25/14 Exam# [id number] Ordering Dr: Jonel Rashid MD P HARMACOLOGIC [...] CC: Jonel Rashid MD; Maylin Melendez DO Business Planner: CALIX Signed 31-Jan-2014 Spirometry (19273) Comments: Moderate restriction similar to previous Result: 14-Jan-2014 Chest PA and Lateral Result: Comments: See Note; NOTES: [facility] Imaging Services [address] [place] [address] Radiology Report MR#: [id number] Acct: [id number] Name: COMFORT OLSON Rep #: [id number] : 1940 F 73 From: John Babcock MD PCP: Maylin Melendez DO Status: REG CLI Study: Chest PA and Lateral Date of Exam: 01/14/14 Exam# [id number] Ordering Dr: Sherrie Amor STUDY: X-RAY CH [...] John Babcock MD at 14:58 EST Tel [phone], Service support [phone], RAD/Chest PA and Lateral IMPRESSION: Mild increased markings at the lung bases suggestive of linear atelectasis. Electronica lly Signed: John Babcock MD at 14:58 EST Tel [phone], Service support [phone], CC: Sherrie Amor; Maylin Melendez DO Business Planner: Signed 07-Sep-2013 Knee 4 or More Views Result: Comments: See Note; NOTES: [facility] Imaging Services [address] [place] [address] Radiology Report MR#: [id number] Acct: [id number] Name: COMFORT OLSON Rep #: [id number] : 1940 F 72 From: Yusuf Lopes PCP: Maylin Melendez DO Status: REG CLI Study: Knee 4 or More Views Date of Exam: 09/07/13 Exam# [id number] Ordering Dr: Maylin Melendez DO STUDY: X-RAY [...] Yusuf Lopes MD at 4:00 EDT Tel [phone] , Service support [phone] , CC: Maylin Melendez DO Business Planner: Signed 22-Aug-2013 Carotid Duplex Ultrasound Result: Comments: See Note; NOTES: [facility] [address] [place] [address] Carotid Duplex Ultrasound 08/20/13 0945 MR#: [id number] Acct: [id number] Nam e: COMFORT OLSON Rep #: [id number] : 1940 72 From: Darian Anderson MD Attending Dr: Maylin Melendez DO Status: REG CLI Ordering Dr: Maylin Melendez DO Date: 08/20/13 Location: [facility] Sex: F C Admitted: Rt. [...] the left vertebral artery. Procedure Carotid Duplex 70545. Exam performed in [facility] ent. Interpretation Summary Mild (<50%) stenosis right extracranial internal carotid. Mild (<50%) stenosis left extracranial internal carotid. Flow within the vertebral arteries is antegrade bilaterally. Ordering Physician: Maylin Melendez Performed By: Sanaz Sheth RVT : Maylin Melendez DO Date Dictated: 08/20/1345 Date Transcribed: 08/22/13 0848 Business Planner: Signed 09-Jul-2013 Chest PA and Lateral Result: Comments: See Note; NOTES: [facility] Imaging Services [address] [place] [address] Radiology Report MR#: [id number] Acct: [id number] Name: COMFORT OLSON Rep #: [id number] : 1940 F 72 From: Jermaine Khan DO PCP: Maylin Melendez DO Status: REG CLI Study: Chest PA and Lateral Date of Exam: 07/09/13 Exam# [id number] Ordering Dr: Sherrie Amor STUDY: X-RAY CHEST [...] Jermaine Khan DO at 22:50 EDT Tel [phone] , Service support [phone], CC: Sherrie Amor; Maylin Melendez DO Business Planner: Signed 08-Jan-2013 PT Discharge Summary Result: Comments: See Note; NOTES: [facility] [address] [place] [address] [address] [place] [id number] Fax REHABILITATION SERVICES DISCHARGE SUMMARY MR#: [id number] Acct: [id number] Name: COMFORT OLSON Rep #: [id number] : 1940 72 From: Farrukh Hull Referring [...] has. Farrukh Hull, PT T: NTS JOB: [id number] <Electronically signed by Farrukh Hull > 01/08/13 0648 CC: * Signed 18-Dec-2012 Inital Evaluation - PT Result: Comments: See Note; NOTES: [facility] [address] [facility] [place], [place] [address] Fax REHABILITATION SERVICES INITIAL EVALUATION MR#: [id number] Acct: [id number] Name: COMFORT OLSON Rep #: [id number] : 1940 72 From: Farrukh Hull Referring Dr.: Maylin Melendez DO Status: REG RCR Insurance: MEDICARE PAR T A B Eval Date: MEAT CARRIER BENEFIT PLAN DATE OF SERVICE: 12/18/2012 PHYSICIAN: [...] She has dizziness wi th left-sided Hallpike Thorsby test. No obvious nystagmus. Right- sided Hallpike [...] therapy. Farrukh Hull, PT T: NTS JOB: [id number] <Electronically signed by Farrukh Hull > 12/18/12 1151 CC: Signed For Medicare only, by signing this I certify the plan of care. 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 Status: Active Living Situation Comments: Lives with [...] kg/m2 Body Surface Area Calculated 1.92 m2 4-Ygo-482685:27 Pulse 70 /min Comments: Pattern: Regular Respiration [...] kg/m2 Body Surface Area Calculated 2.01 m2 15-Qju-197572:19 Temperature 96.1 f Pulse 76 /min Comments: [...] kg/m2 Body Surface Area Calculated 2 m2 45-Kze-076189:11 Comments: Recheck BP 158/82 Temperature 100 f [...] 0.00 cm Results Date Description Value Details :42 HgA1C , Office (84848) HgA1C , Office 7.1 % (Normal) Range: 4.6 - 7.1 :42 Blood Glucose , Office (29335) Blood Glucose , Office 135 (Normal) :55 Basic Metabolic Profile (BMP) Comments: [facility] Myiydatozv[address] [place], [place], [address] GAP 14 (Normal) Range: 5-15 CO2 23.0 [...] A.D.A. criteria.Please note revised GLUCOSE reference range oifpmevzg37/02/2018. 76-Vvc-39007:55 CBC W/Diff, Automated Comments: [facility] [address]jproxketm[address] [place], [place], [address] Absolute Lymph 2.08 {X10_3/ul} (Normal) Range: 0.83-4.51 [...] K/mm3 (Normal) Range: 4.4-11.0 :55 Troponin-I Comments: [facility] [address] [place], [place], [address] TROPONIN-I < 0.015 ng/mL (Normal) Comments: TROPONIN-I EXPECTED VALUES <0.045 Negative 0.045 - 0.590 Consistent with Cardiac Damage > OR = 0.600 Critical Value Not every elevated troponin is indicative of OR. T hesevalues should be used with clinical judgement in examiningthe patient's clinical picture for diagnosis. To establisha diagnosis of OR versus myocardial injury, there must be ademonstrated rise and/ or fall in the troponin values, inaddition to ischemic symptoms, EKG changes, new regionalwall motion abnormality, and/or angiographical evidence. PLEASE NOTE: REFERENCE RANGES EDITED 17:05 Basic Metabolic Profile (BMP) Comments: [facility] [address] [place], [place], [address] GAP 8 (Normal) Range: 5-15 CO2 28.0 [...] A.D.A. criteria.Please note revised GLUCOSE reference range fobixpydi80/02/2018. :05 CBC W/Diff, Automated Comments: [facility] [address] [place], [place], [address] Absolute Lymph 2.24 {X10_3/ul} (Normal) Range: 0.83-4.51 [...] 4.2-5.4 WBC 8.3 K/mm3 (Normal) Range: 4.4-11.0 80-Yaz-39193:05 Troponin-I Comments: [facility] [address] [place], [place], [phone] TROPONIN-I 0.020 ng/mL (Normal) Comments: TROPONIN-I EXPECTED VALUES <0.045 Negative 0.045 - 0.590 Consistent with Cardiac Damage > OR = 0.600 Critical Value Not every elevated troponin is indicative of OR. T hesevalues should be used with clinical judgement in examiningthe patient's clinical picture for diagnosis. To establisha diagnosis of OR versus myocardial injury, there must be ademonstrated rise and/ or fall in the troponin values, inaddition to ischemic symptoms, EKG changes, new regionalwall motion abnormality, and/or angiographical evidence. PLEASE NOTE: REFERENCE RANGES EDITED 06/23/1727-Aug-201732-Vpq-097617:18 HgA1C , Office (00776) HgA1C , Office 7.6 % (Abnormal) Range: 4.6 - 7.1 63-Usj-788321:18 Blood Glucose , Office (76336) Blood Glucose , Office 142 (Normal) :51 Basic Metabolic Profile (BMP) Comments: [facility] [address] [place], [address] GAP 9 (Normal) Range: 5-15 CO2 25.0 [...] A.D.A. criteria.Please note revised GLUCOSE reference range wxeinwjgx89/02/2018. :51 CBC W/Diff, Automated Comments: [facility] [address] [place], [address] Absolute Lymph 2.43 {X10_3/ul} (Normal) [...] K/mm3 (Normal) Range: 4.4-11.0 :51 Troponin-I Comments: [facility] [address] [place], [address] TROPONIN-I < 0.015 ng/mL (Normal) Comments: TROPONIN-I EXPECTED VALUES <0.045 Negative 0.045 - 0.590 Consistent with Cardiac Damage > OR = 0.600 Critical Value Not every elevated troponin is indicative of OR. T hesevalues should be used with clinical judgement in examiningthe patient's clinical picture for diagnosis. To establisha diagnosis of OR versus myocardial injury, there must be ademonstrated rise and/ or fall in the troponin values, inaddition to ischemic symptoms, EKG changes, new regionalwall motion abnormality, and/or angiographical evidence. PLEASE NOTE: REFERENCE RANGES EDITED 06/23/1728-May-201785-Gxr-602186:47 CALCIFEDIOL (74702) Comments: PATIENT NOT FASTINGPERFORMED BY: [facility]6370 [facility] [id number] Vitamin D, 25-Hydroxy 20.2 ng/mL (Abnormal) Range: 30.0-100.0 Comments: Vitamin D deficiency has been defined by the [place] ofMedicine and an Endocrine Society practice guideline as alevel of serum 25-OH vitamin D less than 20 ng/mL (1,2).The Endocrine Society went on to further define vitamin Dinsufficiency as a level between 21 and 29 ng/mL (2).1. IOM ([place] of Medicine). 2010. Dietary reference intakes for calcium and D. [place]: The National Academies Press.2. Bobo MF, Estrellita NC, Maddi CALIX, et al. Evaluation, treatment, and prevention of vitamin D deficiency: an Endocrine Society clinical practice guideline. JCEM. 2010; 96(7):1911-30. 68-Glo-784149:47 VITAMIN B-12 (CYANOCOBALAMIN) Comments: PATIENT NOT FASTINGPERFORMED BY: [facility]6370 [facility] [id number] (56168) Vitamin B12 311 pg/mL (Normal) Range: 232-1245 34-Awz-203955:26 HgA1C , Office (86349) HgA1C , Office 7.3 % (Abnormal) Range: 4.6 - 7.1 18-Uoe-838605:26 Blood Glucose , Office (57403) Blood Glucose , Office 136 (Normal) 22-Pxi-819448:56 Basic Metabolic Profile (BMP) Comments: 'TROP' Serial specimen #1, #2, #3, or #4: [facility] [address] [place], [address] GAP 11 (Normal) Range: 5-15 CO2 27.0 [...] A.D.A. criteria.Please note revised GLUCOSE reference range gtmzodzeg31/02/2018. 13-Mwk-477337:56 CBC W/Diff, Automated Comments: [facility] [address] [place], [place], [phone] Absolute Lymph 3.30 {X10_3/ul} (Normal) Range: 0.83-4.51 [...] 4.2-5.4 WBC 9.3 K/mm3 (Normal) Range: 4.4-11.0 31-Pou-607657:56 Troponin-I Comments: 'TROP' Serial specimen #1, #2, #3, or #4: [address] [place] [address] C[address]47 [facility] [place], [address] TROPONIN-I < 0.02 ng/mL (Normal) Comments: TROPONIN-I EXPECTED VALUES <0.05 NEGATIVE 0.06 - 0.59 AT RISK OF OR > OR = 0.60 SUGGEST OR 07-Fxf-437557:33 Basic Metabolic Profile (BMP) Comments: 'TROP' Serial specimen #1, #2, #3, or #4: [address] [place] [address] [address] [place], [place], [address] GAP 10 (Normal) Range: 5-15 CO2 25.0 [...] A.D.A. criteria.Please note revised GLUCOSE reference range tgkutpgys13/02/2018. 43-Nlp-941046:33 CBC W/Diff, Automated Comments: [facility] [address] [place], [address] Absolute Lymph 3.48 {X10_3/ul} (Normal) Range: 0.83-4.51 [...] 4.2-5.4 WBC 10.4 K/mm3 (Normal) Range: 4.4-11.0 43-Gph-225028:33 Troponin-I Comments: 'TROP' Serial specimen #1, #2, #3, or #4: 1[facility] [address]nju[address] [place], [place], [address] TROPONIN-I 0.14 ng/mL (Abnormal) Comments: TROPONIN-I EXPECTED VALUES <0.05 NEGATIVE 0.06 - 0.59 AT RISK OF OR > OR = 0.60 SUGGEST OR 9-Svg-443320:16 HgA1C , Office (28712) HgA1C , Office 7.9 % (Abnormal) Range: 4.6 - 7.1 2-Diy-387036:15 Blood Glucose , Office (54923) Blood Glucose , Office 166 (Normal) 6-Iru-908901:25 Basic Metabolic Profile (BMP) Comments: Order Date: 12/13/16Order Info: [id number] - *BMPComments: Reason:[facility] [address]ts[address] [place], [place], [phone] GAP 9 (Normal) Range: 5-15 CO2 29.0 [...] 200 mg/dLsuggests DIABETES MELLITUS per A.D.A. criteria. 91-Vdd-517650:27 Basic Metabolic Profile (BMP) Comments: Order Date: 11/19/16Order Info: [id number] - *BMPComments: Reason:[facility] Dbhwknkmkt[address] [place], [place], [address] GAP 8 (Normal) Range: 5-15 CO2 27.0 [...] 200 mg/dLsuggests DIABETES MELLITUS per A.D.A. criteria. 80-Jrz-797224:27 Partial Thromboplast Time Comments: Order Date: 11/19/16Order Info: [id number] - *PT/INROrder Info: [id number] - *PTT-Partial Thromboplastin TimeWKettering Health [facility] [address]xmqzdsp[address] [place], [place], [address] PTT 29.4 s (Normal) Range: 24.1-36.2 47-Wen-074286:27 Prothrombin Time w/INR Comments: Order Date: 11/19/16Order Info: [id number] - *PT/INROrder Info: [id number] - *PTT-Partial Thromboplastin TimeWKettering Health [facility] Vddhaivycg119[address] [place], [place], [address] INR 1.1 (Normal) PROTIME 13.4 s (Normal) Range: 11.7-14.9 4-Oct-22127:05 Basic Metabolic Profile (BMP) Comments: 'TROP' Serial specimen #1, #2, #3, or #4: 1[facility] Metlkxmyyl[address] [place] [place], [address] GAP 10 (Normal) Range: 5-15 CO2 25.0 [...] A.D.A. criteria. :05 BNP,B-Type NATRIURETIC PEPTIDE Comments: [facility] Cdmigkdapd[address] [place], [place], [address] B-TYPE ANDREW PEP 316.0 pg/mL (Abnormal) Range: 0-100 :05 CBC W/Diff, Automated Comments: [facility] S[address]czgauoy[address] [place], [address] Absolute Lymph 1.26 {X10_3/ul} (Normal) Range: 0.83-4.51 [...] Serial specimen #1, #2, #3, or #4: [address] [place] [address] [address] [place], [address] TROPONIN-I 0.15 ng/mL (Abnormal) Comments: TROPONIN-I EXPECTED VALUES <0.05 NEGATIVE 0.06 - 0.59 AT RISK OF OR > OR = 0.60 SUGGEST OR 5-Svm-989916:10 Basic Metabolic Profile (BMP) Comments: 'TROP' Serial specimen #1, #2, #3, or #4: [address] [place] [address] L[address]hticiav6316 [place], [address] GAP 13 (Normal) Range: 5-15 [...] 200 mg/dLsuggests DIABETES MELLITUS per A.D.A. criteria. 2-Dff-506837:10 CBC W/Diff, Automated Comments: [facility] [address] [place], [address] Absolute Lymph 2.88 {X10_3/ul} (Normal) Range: 0.83-4.51 [...] Serial specimen #1, #2, #3, or #4: [address] [place] [address] [place], [address] TSH 1.29 {uIU/mL} (Normal) Range: 0.358-3.74 :10 Troponin-I Comments: 'TROP' Serial specimen #1, #2, #3, or #4: [address] [place] [address] [place], [address] TROPONIN-I < 0.02 ng/mL (Normal) Comments: TROPONIN-I EXPECTED VALUES <0.05 NEGATIVE 0.06 - 0.59 AT RISK OF OR > OR = 0.60 SUGGEST OR :58 HgA1C , Office (13114) HgA1C , Office 7.6 % (Abnormal) Range: 4.6 - 7.1 :58 Blood Glucose , Office (95591) Blood Glucose , Office 159 (Normal) :50 CBC W/Diff, Automated Comments: [facility] [address] [place], [address] Absolute Lymph 1.46 {X10_3/ul} (Normal) [...] 4.2-5.4 WBC 7.3 K/mm3 (Normal) Range: 4.4-11.0 09-Dtr-834702:50 CCP IgG Antibodies Comments: [facility] (refer to report for specific site)refer to report for address and phone number ANTI-CCP 043546 4 {units} (Normal) Range: 0-19 Comments: Negative <20 Weak positive 20 - 39 Moderate positive 40 - 59 Strong positive >59 07-Clh-812809:50 Comprehensive Metabolic Profil Comments: [facility] [address] [place], [place], [address] GAP 9 (Normal) Range: 5-15 CO2 26.0 [...] 126 mg/dLsuggests DIABETES MELLITUS per A.D.A. criteria. 41-Vmk-706791:50 CRP Comments: [facility] Lwrswebtjv7427 [facility]. [place], [place], [phone] C-REACTIVE PROT 8.89 mg/L (Abnormal) Range: 0.0-3.0 Comments: C-Reactive Protein (CRP) provides useful information for thediagnosis, therapy and monitoring of inflammatory processesand associated diseases. For the evaluation of Relative Riskfor Cardiovascular Dise ase, a High Sensitivity CRP (HSCRP)should be ordered. 02-Gml-351003:50 Erythrocyte Sed Rate Comments: [facility] Lmynsqmokx9[address] [place], [address] SED RATE 27 mm/h (Normal) Range: 0-30 73-Ghc-732000:50 Hep B Surface Antibodies Comments: [facility] (refer [...] SURF AG Negative (Normal) Comments: Performed at: [facility] Lab[address] [id number] Director: Christopher Sullivan PhD, Phone: [phone] at: [address] [id number] Director: Loco Ivey MD, Phone: [phone] :50 Hepatitis C Antibodies Comments: [facility] (refer to report for specific site)refer to report for address and phone number HEP C AB <0.1 {s/co_ratio} (Normal) Range: 0.0-0.9 Comments: Negative: < 0.8 Indeterminate: 0.8 - 0.9 Positive: > 0.9 The CDC recommends that a positive HCV antibody result be followed up with a HCV Nucleic Acid Amplification test (926679). :50 Rheumatoid Factor Comments: [facility] Cnwdjtqgmi1512 [facility]. [place], [place], [phone] RHEUMATOID FAC < 10.0 {IU/mL} (Normal) :50 Uric Acid Comments: [facility] Inqgqlieaw8055 [facility]. [place], [place], [address] URIC 7.1 mg/dL (Abnormal) Range: 2.6-6.0 Comments: The drugs N-Acetylcysteine and Metamizole may falselydepress this assay. :03 Unable to Void SPRCS (Normal) Comments: PATIENT WAS FASTINGPERFORMED BY: [address] [id number] Comments: The patient was not able to render a urine sample and has beeninstructed to return for a urine collection at their earliestconvenience. The urine testing that you have requested hasbeen deleted from th is report. When the patient returns andprovides a urine specimen, the urine testing will be performedand separately reported. :03 VITAMIN B-12 (CYANOCOBALAMIN) Comments: PATIENT WAS FASTINGPERFORMED BY: [facility]X70 [facility] [id number] (72239) Vitamin B12 264 pg/mL (Normal) Range: 211-946 :03 METABOLIC PANEL, COMPREHENSIVE Comments: PATIENT WAS FASTINGPERFORMED BY: [facility]oteX70 [facility] [id number] (61941) ALT (SGPT) 7 [iU]/L (Normal) Range: 0-32 [...] mg/dL (Abnormal) Range: 65-99 :03 LIPID PANEL (93598) Comments: PATIENT WAS FASTINGPERFORMED BY: JustFamily6370 [facility]Cal[facility]mpAmerican [facility] [id number] VLDL Cholesterol Jyoti VLDLCH mg/dL (Normal) Range: 5-40 Comments: The calculation for the VLDL cholesterol is not valid whentriglyceride level is >400 mg/dL.Triglyceride result indicated is too high for an accurate LDLcholesterol estimation. HDL Cholesterol 26 mg/dL (Abnormal) Triglycerides 542 mg/dL (Abnormal) Range: 0-149 Cholesterol, Total 183 mg/dL (Normal) Range: 100-199 02-Rpr-52700:03 CBC W/AUTO DIFF WBC (42115) Comments: PATIENT WAS FASTINGPERFORMED BY: LabCoRobert [facility] Johnson University HospitalTwtbga2801 [facility] [id number] Immature Grans (Abs) 0.0 {x10E3/uL} (Normal) Range: [...] 3.77-5.28 WBC 8.1 {x10E3/uL} (Normal) Range: 3.4-10.8 22-Drw-265860:48 HgA1C , Office (48989) HgA1C , Office 8.0 % (Abnormal) Range: 4.6 - 7.1 :48 Blood Glucose , Office (09851) Blood Glucose , Office 166 (Normal) :06 CALCIFEDIOL (77194) Comments: PATIENT NOT FASTINGPERFORMED BY: LabCoRobert Wood Johnson University HospitalOtsiuw6782 [facility] [id number] Vitamin D, 25-Hydroxy 51.1 ng/mL (Normal) Range: 30.0-100.0 Comments: Vitamin D deficiency has been defined by the [place] ofZanes[facility] City Hospitalcine and an Endocrine Society practice guideline as alevel of serum 25-OH vitamin D less than 20 ng/mL (1,2).The Endocrine Society went on to further define vitamin Dinsufficiency as a level between 21 and 29 ng/mL (2).1. IOM ([place] of Medicine). 2010. Dietary reference intakes for calcium and D. [place]: The National Academies Press.2. Bobo MF, Estrellita NC, Maddi CALIX, et al. Evaluation, treatment, and prevention of vitamin D deficiency: an Endocrine Society clinical practice guideline. JCEM. 2010; 96(7):1911-30. :06 CBC, PLATELETS & AUT DIFF Comments: PATIENT NOT FASTINGPERFORMED BY: LabCoRobert Wood Johnson University HospitalVendsg4551 [facility] [id number] (37715) Immature Grans (Abs) 0.0 {x10E3/uL} (Normal) Range: [...] (Normal) Range: 3.4-10.8 :36 HgA1C , Office (96488) HgA1C , Office 8.0 % (Abnormal) Range: 4.6 - 7.1 :36 Blood Glucose , Office (06465) Blood Glucose , Office 155 (Normal) :39 METABOLIC PANEL, COMPREHENSIVE Comments: PATIENT WAS FASTINGPERFORMED BY: LabCoRobert Wood Johnson University HospitalCmngov1926 [facility] [id number] (08132) ALT (SGPT) 6 [iU]/L (Normal) Range: 0-32 [...] Glucose, Serum 200 mg/dL (Abnormal) Range: 65-99 79-Vid-55092:39 LIPID PANEL (28113) Comments: PATIENT WAS FASTINGPERFORMED BY: [facility] [id number] LDL/HDL Ratio 3.6 {ratio_units} (Abnormal) Range: 0.0-3.2 Comments: LDL/HDL Ratio Men Women 1/2 Avg.Risk 1.0 1.5 Av g.Risk 3.6 3.2 2X Avg.Risk 6.2 5.0 3X Avg.Risk 8.0 6.1 LDL Cholesterol Calc 104 mg/dL (Abnormal) Range: 0-99 VLDL Cholesterol Jyoti 72 mg/dL (Abnormal) Range: 5-40 HDL Cholesterol 29 mg/dL (Abnormal) Triglycerides 359 mg/dL (Abnormal) Range: 0-149 Cholesterol, Total 205 mg/dL (Abnormal) Range: 100-199 70-Vaf-613137:49 Blood Glucose , Office (20312) Blood Glucose , Office 159 (Normal) :49 HgA1C , Office (76537) HgA1C , Office 8.1 % (Abnormal) Range: 4.6 - 7.1 14-Lkh-398773:03 VITAMIN B-12 (CYANOCOBALAMIN) Comments: PATIENT WAS FASTINGPERFORMED BY: [employer] [place] [id number] (10023) Vitamin B12 319 pg/mL (Normal) Range: 211-946 66-Izv-678950:03 LIPID PANEL (63145) Comments: PATIENT WAS FASTINGPERFORMED BY: [facility]6370 [facility] [id number] VLDL Cholesterol Jyoti VLDLCH mg/dL (Normal) Range: [...] Cholesterol, Total 192 mg/dL (Normal) Range: 100-199 24-Nyc-830164:03 Vitamin D Hydroxy (79099) Comments: PATIENT WAS FASTINGPERFORMED BY: [facility]6370 [facility] [id number] Vitamin D, 25-Hydroxy 21.1 ng/mL (Abnormal) Range: 30.0-100.0 Comments: Vitamin D deficiency has been defined by the [place] ofMedicine and an Endocrine Society practice guideline as alevel of serum 25-OH vitamin D less than 20 ng/mL (1,2).The Endocrine Society went on to further define vitamin Dinsufficiency as a level between 21 and 29 ng/mL (2).1. IOM ([place] of Medicine). 2010. Dietary reference intakes for calcium and D. [place]: The National Academies Press.2. Bobo MF, Estrellita STOCKTON, Maddi CALIX, et al. Evaluation, treatment, and prevention of vitamin D deficiency: an Endocrine Society clinical practice guideline. JCEM. 2010; 96(7): 1911-30.; ADDENDA: non-emergent till apt next week 96-Jru-490265:03 MICROALBUMIN: CREATININE RATIO Comments: PATIENT WAS FASTINGPERFORMED BY: [facility]6370 [facility] [id number] (60690) AND (19500) Microalb/Creat Ratio 26.1 {mg/g_creat} (Normal) Range: 0.0-30.0 Microalbumin, Urine 20.0 ug/mL (Normal) Creatinine, Urine 76.5 mg/dL (Normal) 40-Jpy-643805:03 CBC W/AUTO DIFF WBC Comments: PATIENT WAS FASTINGPERFORMED BY: BELKYS [employer]ier70 [employer] [facility] [id number] Information: [id number] (80355) Immature Grans (Abs) 0.0 {x10E3/uL} (Normal) Range: [...] 3.77-5.28 WBC 8.1 {x10E3/uL} (Normal) Range: 3.4-10.8 58-Iwf-898424:03 METABOLIC PANEL, COMPREHENSIVE Comments: PATIENT WAS FASTINGPERFORMED BY: [facility] Hospitalblin [place] [id number] (18632) ALT (SGPT) 7 [iU]/L (Normal) Range: 0-32 [...] (Abnormal) Range: 65-99 17-Apr-20169:53 Vitamin D Hydroxy (05139) Comments: PATIENT WAS FASTINGPERFORMED BY: BELKYS [facility] Ttajch6105 [facility] [id number] Vitamin D, 25-Hydroxy 25.5 ng/mL (Abnormal) Range: 30.0-100.0 Comments: Vitamin D deficiency has been defined by the [place] ofMedicine and an Endocrine Society practice guideline as alevel of serum 25-OH vitamin D less than 20 ng/mL (1,2).The Endocrine Society went on to further define vitamin Dinsufficiency as a level between 21 and 29 ng/mL (2).1. IOM ([place] of Medicine). 2010. Dietary reference intakes for calcium and D. [place]: The National Academies Press.2. Bobo MF, Estrellita STOCKTON, Maddi CALIX, et al. Evaluation, treatment, and prevention of vitamin D deficiency: an Endocrine Society clinical practice guideline. JCEM. 2010; 96(7):1911-30. :53 LIPID PANEL (35673) Comments: PATIENT WAS FASTINGPERFORMED BY: Diffon6370 [facility] [id number] LDL/HDL Ratio 3.7 {ratio_units} (Abnormal) Range: 0.0-3.2 [...] PANEL, COMPREHENSIVE Comments: PATIENT WAS FASTINGPERFORMED BY: [employer] Ykrton1963 [facility] [id number] (80538) ALT (SGPT) 5 [iU]/L (Normal) Range: 0-32 [...] mg/dL (Abnormal) Range: 65-99 :34 HGB A1C (74380) Comments: PATIENT WAS FASTINGPERFORMED BY: MailFrontier70 [facility] [id number] Hemoglobin A1c 8.9 % (Abnormal) Range: 4.8-5.6 Comments: . Pre-diabetes: 5.7 - 6.4 Diabetes: >6.4 Glycemic control for adults with diabetes: <7.0 :11 VITAMIN B-12 (CYANOCOBALAMIN) Comments: B12lot:5200exp:06/26site:lt deltroute:Romeose:chilo Camargo; PATIENT WAS FASTINGPERFORMED BY: LabFunnelFireRobert Wood Johnson University HospitalPahsdt3591 Ryan [facility] [id number] (81201) Vitamin B12 301 pg/mL (Normal) Range: 211-946 :11 Vitamin D Hydroxy (90228) Comments: PATIENT WAS FASTINGPERFORMED BY: IFMR [employer] ServicesMosaic Life Care At St. JosephYrhxmx2422 [facility] [id number] Vitamin D, 25-Hydroxy 20.3 ng/mL (Abnormal) Range: 30.0-100.0 Comments: Vitamin D deficiency has been defined by the [place] ofMedicine and an Endocrine Society practice guideline as alevel of serum 25-OH vitamin D less than 20 ng/mL (1,2).The Endocrine Society went on to further define vitamin Dinsufficiency as a level between 21 and 29 ng/mL (2).1. IOM ([place] of Medicine). 2010. Dietary reference intakes for calcium and D. [place]: The National Academies Press.2. Bobo MF, Estrellita STOCKTON, Maddi CALIX, et al. Evaluation, treatment, and prevention of vitamin D deficiency: an Endocrine Society clinical practice guideline. JCEM. 2010; 96(7):1911-30. 26-Sdt-28129:11 METABOLIC PANEL, Comments: PATIENT WAS FASTINGPERFORMED BY: [facility] PartnersCrownpoint Healthcare FacilityEmrvnf9402 [facility] [id number] Information: [id number] COMPREHENSIVE (35807) ALT (SGPT) 6 [iU]/L (Normal) Range: 0-32 [...] mg/dL (Abnormal) Range: 65-99 :11 LIPID PANEL (12713) Comments: PATIENT WAS FASTINGPERFORMED BY: [facility] [id number]; will review on 07/04 LDL/HDL Ratio 4.0 [...] mg/dL (Abnormal) Range: 100-199 :11 HGB A1C (42616) Comments: PATIENT WAS FASTINGPERFORMED BY: RoboteX70 Ryan [facility]y M[facility]Formerly [facility] [id number] Hemoglobin A1c 8.5 % (Abnormal) Range: 4.8-5.6 Comments: . Pre-diabetes: 5.7 - 6.4 Diabetes: >6.4 Glycemic control for adults with diabetes: <7.0 :16 Vitamin D Hydroxy (85594) Comments: PATIENT WAS FASTINGPERFORMED BY: RoboteX70 [facility] [id number] Vitamin D, 25-Hydroxy 21.3 ng/mL (Abnormal) Range: 30.0-100.0 Comments: Vitamin D deficiency has been defined by the [place] of[place]icine and an Endocrine Society practice guideline as alevel of serum 25-OH vitamin D less than 20 ng/mL (1,2).The Endocrine Society went on to further define vitamin Dinsufficiency as a level between 21 and 29 ng/mL (2).1. IOM ([place] of Medicine). 2010. Dietary reference intakes for calcium and D. [place]: The National Academies Press.2. Bobo MF, Estrellita STOCKTON, Maddi CALIX, et al. Evaluation, treatment, and prevention of vitamin D deficiency: an Endocrine Society clinical practice guideline. JCEM. 2010; 96(7):1911-30. :16 VITAMIN B-12 (CYANOCOBALAMIN) Comments: PATIENT WAS FASTINGPERFORMED BY: [employer]ote[employer]70 [employer] [facility] [id number] (03290) Vitamin B12 283 pg/mL (Normal) Range: 211-946 :16 CBC W/AUTO DIFF WBC Comments: PATIENT WAS FASTINGPERFORMED BY: [employer]Fire Zirglt6594 [facility] [id number] Information: [id number] (77852) Immature Grans (Abs) 0.0 {x10E3/uL} (Normal) Range: [...] {x10E3/uL} (Normal) Range: 3.4-10.8 :16 LIPID PANEL (15652) Comments: PATIENT WAS FASTINGPERFORMED BY: [facility] [id number] VLDL Cholesterol Jyoti VLDLCH mg/dL (Normal) Range: [...] Cholesterol, Total 168 mg/dL (Normal) Range: 100-199 08-Ixj-954976:49 HGB A1C (00192) Comments: PATIENT NOT FASTINGPERFORMED BY: RoboteX70 [facility] [id number] Information: [id number] Hemoglobin A1c 8.1 % (Abnormal) Range: 4.8-5.6 Comments: . Pre-diabetes: 5.7 - 6.4 Diabetes: >6.4 Glycemic control for adults with diabetes: <7.0 :30 VITAMIN B-12 (CYANOCOBALAMIN) Comments: PATIENT WAS FASTINGPERFORMED BY: [employer] NortheastFormerly [facility] [id number] (48604) Vitamin B12 325 pg/mL (Normal) Range: 211-946 :30 CBC (AUTO) (44907) Comments: PATIENT WAS FASTINGPERFORMED BY: [employer] Yykdat0778 Ryan [facility] [id number] Platelets 309 {x10E3/uL} (Normal) Range: 150-379 RDW 14.8 % (Normal) Range: 12.3-15.4 MCHC 31.1 g/dL (Abnormal) Range: 31.5-35.7 MCH 25.6 pg (Abnormal) Range: 26.6-33.0 MCV 82 fL (Normal) Range: 79-97 Hematocrit 39.2 % (Normal) Range: 34.0-46.6 Hemoglobin 12.2 g/dL (Normal) Range: 11.1-15.9 RBC 4.77 {x10E6/uL} (Normal) Range: 3.77-5.28 WBC 10.9 {x10E3/uL} (Abnormal) Range: 3.4-10.8 :30 Vitamin D Hydroxy (90974) Comments: PATIENT WAS FASTINGPERFORMED BY: [facility] [employer] Crqycl1572 [facility] [id number] Vitamin D, 25-Hydroxy 19.9 ng/mL (Abnormal) Range: 30.0-100.0 Comments: Vitamin D deficiency has been defined by the [place] of[place]icine and an Endocrine Society practice guideline as alevel of serum 25-OH vitamin D less than 20 ng/mL (1,2).The Endocrine Society went on to further define vitamin Dinsufficiency as a level between 21 and 29 ng/mL (2).1. IOM ([place] of Medicine). 2010. Dietary reference intakes for calcium and D. [place]: The National Academies Press.2. Bobo MF, Estrellita NC, Maddi CALIX, et al. Evaluation, treatment, and prevention of vitamin D deficiency: an Endocrine Society clinical practice guideline. JCEM. 2010; 96(7): 1911-30.; ADDENDA: non-emergent till tomorrows apt :30 LIPID PANEL (95822) Comments: PATIENT WAS FASTINGPERFORMED BY: [employer] Fuujpg1531 [facility] [id number] VLDL Cholesterol Jyoti VLDLCH mg/dL (Normal) Range: [...] CREATININE RATIO Comments: PATIENT WAS FASTINGPERFORMED BY: [employer] USARobert Wood Johnson University HospitalKctdot5512 [facility] [id number] (07849) AND (31198) Microalb/Creat Ratio 190.8 {mg/g_creat} (Abnormal) Range: 0.0-30.0 Microalbumin, Urine 66.6 ug/mL (Abnormal) Range: 0.0-17.0 Creatinine, Urine 34.9 mg/dL (Normal) Range: 15.0-278.0 :30 METABOLIC PANEL, Comments: PATIENT WAS FASTINGPERFORMED BY: [employer] USARobert Wood Johnson University HospitalZdrpey2810 [facility] [id number] Information: [id number] COMPREHENSIVE (11420) ALT (SGPT) 6 [iU]/L (Normal) Range: 0-32 [...] (Abnormal) Range: 65-99 :59 Vitamin D Hydroxy (59931) Comments: PATIENT NOT FASTINGPERFORMED BY: [facility] Ihxdhg1892 [facility] [id number]; [address] Vitamin D, 25-Hydroxy 21.4 ng/mL (Abnormal) Range: 30.0-100.0 Comments: Vitamin D deficiency has been defined by the [place] ofZanesville City Hospitalcine and an Endocrine Society practice guideline as alevel of serum 25-OH vitamin D less than 20 ng/mL (1,2).The Endocrine Society went on to further define vitamin Dinsufficiency as a level between 21 and 29 ng/mL (2).1. IOM ([place] of Medicine). 2010. Dietary reference intakes for calcium and D. [place]: The National Academies Press.2. Bobo MF, Estrellita NC, Maddi CALIX, et al. Evaluation, treatment, and prevention of vitamin D deficiency: an Endocrine Society clinical practice guideline. JCEM. 2010; 96(7):1911-30. :59 LIPID PANEL (40370) Comments: PATIENT NOT FASTINGPERFORMED BY: [facility] Bhcsih1816 [facility] [id number] VLDL Cholesterol Jyoti VLDLCH mg/dL (Normal) Range: [...] B-12 (CYANOCOBALAMIN) Comments: PATIENT NOT FASTINGPERFORMED BY: IFMR [facility] ServicesM[facility]6370 [facility] [id number] (75235) Vitamin B12 500 pg/mL (Normal) Range: 211-946 :59 CBC W/AUTO DIFF WBC Comments: PATIENT NOT FASTINGPERFORMED BY: LabCoRobert Wood Johnson University HospitalWokcke4848 [facility] [id number] Information: [id number] (90685) Immature Grans (Abs) 0.0 {x10E3/uL} (Normal) Range: [...] COMPREHENSIVE Comments: PATIENT NOT FASTINGPERFORMED BY: [facility] Yiptcg8375 Ryan [facility] [id number] (91773) ALT (SGPT) 6 [iU]/L (Normal) Range: 0-32 [...] Range: 65-99 :38 Blood Glucose , Office (85220) Blood Glucose , Office 198 (Normal) :38 HgA1C , Office (69148) HgA1C , Office 9.1 % (Abnormal) Range: 4.6 - 7.1 80-Ttt-33478:40 Allergens, Zone 8 Comments: Test(s) 606330-Y324-HjF Cockroach, Brazilian; 419130-S454-MdZ Andrew, White; 437956-M404-OzW Sweet Gumwere developed and had performance characteristicsdetermined by [facility]. These tests have not been c leared orapproved by the U.S. Food and Drug Administration. The FDAhas determined that such clearance or approval is notnecessary. These tests are used for clinical purposes.These should not be regarded as investigational or forresearch.Test performed at:[facility] [address] [place], [place] [address] ; handled by jennifer VANG COMMENT Comment [...] NETTLE <0.10 kU/L (Normal) Comments: Performed at: [address] [id number] Director: Loco Ivey MD, Phone: [phone] SHEEP SORREL <0.10 kU/L (Normal) PIGWEED, ROUGH [...] kU/L (Normal) D PTERONYSSINUS <0.10 kU/L (Normal) 83-Wtg-95340:40 Immunoglobulin E Comments: Test performed at:[facility] J[address]fgot[address] [place] [address] IMMUNO E 53 {IU/mL} (Normal) Range: 0-100 Comments: Performed at: [facility] [employer] [id number] Director: Christopher Sullivan PhD, Phone: [phone]; ADDENDA: handled by jennifer 54-Ddk-145284:26 HgA1C , Office (48260) HgA1C , Office 9.6 % (Abnormal) Range: 4.6 - 7.1 5-Slt-155735:31 BNP,B-Type NATRIURETIC PEPTIDE Comments: Test performed at:[facility] Tetjbq[address] [place] [address] B-TYPE ANDREW PEP 58.8 pg/mL (Normal) Range: 0-100 53-Hrr-522491:04 IRON BINDING CAPACITY (TIBC) Comments: PERFORMED BY: CB LabCo[address] RoadDublin [place] [id number] (00099) Iron Saturation 11 % (Abnormal) Range: 15-55 Iron, Serum 47 ug/dL (Normal) Range: 35-155 UIBC 362 ug/dL (Normal) Range: 150-375 Iron Bind.Cap.(TIBC) 409 ug/dL (Normal) Range: 250-450 28-Lcz-489188:04 FERRITIN (46517) Comments: PERFORMED BY: [facility] [facility] Hospitalblin [place] [id number] Ferritin, Serum 32 ng/mL (Normal) Range: 15-150 61- :04 VITAMIN B-12 (CYANOCOBALAMIN) Comments: PERFORMED BY: [facility]6370 [facility] [id number] (19822) Vitamin B12 304 pg/mL (Normal) Range: 211-946 :04 Vitamin D Hydroxy (60487) Comments: PERFORMED BY: [facility]6370 [facility] [id number] Vitamin D, 25-Hydroxy 17.5 ng/mL (Abnormal) Range: 30.0-100.0 Comments: Vitamin D deficiency has been defined by the [place] of[place]icine and an Endocrine Society practice guideline as alevel of serum 25-OH vitamin D less than 20 ng/mL (1,2).The Endocrine Society went on to further define vitamin Dinsufficiency as a level between 21 and 29 ng/mL (2).1. IOM ([place] of [place]). 2010. Dietary reference intakes for calcium and D. [place]: The National Academies Press.2. Bobo MF, Estrellita NC, Maddi CALIX, et al. Evaluation, treatment, and prevention of vitamin D deficiency: an Endocrine Society clinical practice guideline. JCEM. 2010; 96(7):1911-30. 36-Swm-356291:04 LIPID PANEL (33288) Comments: PERFORMED BY: LabM[facility] [facility] HospitalblSaint [facility] [id number] VLDL Cholesterol Jyoti VLDLCH mg/dL (Normal) Range: [...] Range: 100-199 :04 CBC W/AUTO DIFF WBC (95956) Comments: PERFORMED BY: LabCoRobert Wood Johnson University HospitalAjyyms2850 [facility] [id number] Immature Grans (Abs) 0.0 {x10E3/uL} (Normal) Range: [...] 3.77-5.28 WBC 7.3 {x10E3/uL} (Normal) Range: 3.4-10.8 41-Xuq-207245:04 METABOLIC PANEL, COMPREHENSIVE Comments: PERFORMED BY: BELKYS [employer] Lgtvmk8969 [facility] [id number] (88010) ALT (SGPT) 5 [iU]/L (Normal) Range: 0-32 [...] Glucose, Serum 279 mg/dL (Abnormal) Range: 65-99 93-Cwv-123691:18 HgA1C , Office (72674) HgA1C , Office 8.3 % (Abnormal) Range: 4.6 - 7.1 04-Kjb-641267:12 Rapid Flu (10733 x 2) Influenza A Ag negative (Normal) 37-Bdz-587901:43 BNTP (43469) Comments: PATIENT NOT FASTINGPERFORMED BY: LabCoRobert Wood Johnson University HospitalUayzah4581 [facility] [id number] Information: [id number], [id number] B-Type Natriuretic Peptide 67.8 pg/mL (Normal) Range: [...] 126 mg/dLsuggests DIABETES MELLITUS per A.D.A. criteria. 59-Byl-870415:14 Blood Glucose , Office (33751) Blood Glucose , Office 112 (Normal) :14 HgA1C , Office (64404) HgA1C , Office 7.3 % (Abnormal) Range: 4.6 - 7.1 :45 WESTON Negative (Normal) Comments: Performed at: [address] Director: Nick Cali PhD, Phone: [phone] 28-Coz-393211:45 CBCD ALC 1.65 {X10_3/ul} (Normal) Range: 0.83-4.51 [...] 40 - 59Strong positive >59Performed at: - LabCo[address] [id number] Director: Loco Ivey MD, Phone: [phone] CMP GAP 4 (Abnormal) Range: 5-15 [...] ng/mL (>250 nmol/L) :46 Vitamin D Hydroxy (32639) Comments: PATIENT WAS FASTINGPERFORMED BY: [employer] [place] [id number] Vitamin D, 25-Hydroxy 22.7 ng/mL (Abnormal) Range: 30.0-100.0 Comments: Vitamin D deficiency has been defined by the [place] of[place]icine and an Endocrine Society practice guideline as alevel of serum 25-OH vitamin D less than 20 ng/mL (1,2).The Endocrine Society went on to further define vitamin Dinsufficiency as a level between 21 and 29 ng/mL (2).1. IOM ([place] of Medicine). 2010. Dietary reference intakes for calcium and D. [place]: The National Academies Press.2. Bobo MF, Estrellita STOCKTON, Maddi CALIX, et al. Evaluation, treatment, and prevention of vitamin D deficiency: an Endocrine Society clinical practice guideline. JCEM. 2010; 96(7):1911-30. :46 MICROALBUMIN: CREATININE RATIO Comments: PATIENT WAS FASTINGPERFORMED BY: [facility]6370 [place] [id number] (11317) AND (82822) Microalb/Creat Ratio 37.1 {mg/g_creat} (Abnormal) Range: 0.0-30.0 Microalbumin, Urine 29.9 ug/mL (Abnormal) Range: 0.0-17.0 Creatinine, Urine 80.5 mg/dL (Normal) Range: 15.0-278.0 :46 METABOLIC PANEL, COMPREHENSIVE Comments: PATIENT WAS FASTINGPERFORMED BY: [employer] [facility] [id number] (33986) ALT (SGPT) 7 [iU]/L (Normal) Range: 0-32 [...] mg/dL (Abnormal) Range: 65-99 :46 LIPID PANEL (12805) Comments: PATIENT WAS FASTINGPERFORMED BY: [employer]6370 [facility] [id number] LDL/HDL Ratio 2.1 {ratio_units} (Normal) Range: 0.0-3.2 [...] Cholesterol, Total 177 mg/dL (Normal) Range: 100-199 52-Bef-45954:46 CBC, PLATELETS & AUT DIFF Comments: PATIENT WAS FASTINGPERFORMED BY: LabCoRobert Wood Johnson University HospitalBnzkfs2201 [facility] [id number] Information: [id number] (76009) Hematology Comments: Note: (Normal) Comments: Verified by [...] B-12 (CYANOCOBALAMIN) Comments: PATIENT WAS FASTINGPERFORMED BY: [facility] Palmer Hargreaves [facility] [id number] (29563) Vitamin B12 254 pg/mL (Normal) Range: 211-946 4-Gfk-289547:10 HgA1C , Office (03742) HgA1C , Office 6.8 % (Normal) Range: 4.6 - 7.1 0-Utr-439268:10 Blood Glucose , Office (16583) Blood Glucose , Office 146 (Normal) Comments: non-fasting :36 LIPID PANEL (80673) Comments: PATIENT WAS FASTINGPERFORMED BY: [facility] PartnersRobert Wood Johnson University HospitalBdyuzg6827 [facility] [id number] VLDL Cholesterol Jyoti VLDLCH mg/dL (Normal) Range: [...] MANUAL DIFF Comments: PATIENT WAS FASTINGPERFORMED BY: IFMR [facility] Channels and ServicesMunson Healthcare [facility] Hospital6370 [facility] [id number] Information: [id number] (70634) Immature Grans (Abs) 0.0 {x10E3/uL} (Normal) Range: [...] WAS FASTINGPERFORMED BY: LabCoRobert Wood Johnson University HospitalUqrpsf4999 [facility] [id number] (46176) ALT (SGPT) 6 [iU]/L (Normal) Range: 0-32 [...] (Abnormal) Range: 65-99 :36 Vitamin D Hydroxy (41628) Comments: PATIENT WAS FASTINGPERFORMED BY: BELKYS LabSaint [facility] Iktzhg2834 [facility] [id number] Vitamin D, 25-Hydroxy 17.5 ng/mL (Abnormal) Range: 30.0-100.0 Comments: Vitamin D deficiency has been defined by the [place] ofZanesville City Hospitalcine and an Endocrine Society practice guideline as alevel of serum 25-OH vitamin D less than 20 ng/mL (1,2).The Endocrine Society went on to further define vitamin Dinsufficiency as a level between 21 and 29 ng/mL (2).1. IOM ([place] of Medicine). 2010. Dietary reference intakes for calcium and D. [place]: The National Academies Press.2. Bobo MF, Estrellita STOCKTON, Maddi CALIX, et al. Evaluation, treatment, and prevention of vitamin D deficiency: an Endocrine Society clinical practice guideline. JCEM. 2010; 96(7):1911-30. :36 VITAMIN B-12 (CYANOCOBALAMIN) Comments: PATIENT WAS FASTINGPERFORMED BY: BELKYS Lab[facility] Wikutu6140 Ryan RoadDublin [place] [id number] (53960) Vitamin B12 264 pg/mL (Normal) Range: 211-946 :36 IRON (84236) Comments: PATIENT WAS FASTINGPERFORMED BY: [facility] Binzov2579 Ryan RoadDublin [place] [id number] Iron, Serum 52 ug/dL (Normal) Range: 35-155 77-Kjj-467124:54 HgA1C , Office (30013) HgA1C , Office 7.1 % (Normal) Range: 4.6 - 7.1 :09 VITAMIN B-12 (CYANOCOBALAMIN) Comments: PATIENT WAS FASTINGPERFORMED BY: [facility] Iwcmmz7752 Ryan RoadDublin [place] [id number] (92754) Vitamin B12 704 pg/mL (Normal) Range: 211-946 :09 Vitamin D Hydroxy (30716) Comments: PATIENT WAS FASTINGPERFORMED BY: [facility] Hvwvkd3553 Ryan RoadDublin [place] [id number] Vitamin D, 25-Hydroxy 21.8 ng/mL (Abnormal) Range: 30.0-100.0 Comments: Vitamin D deficiency has been defined by the [place] of[place]icine and an Endocrine Society practice guideline as alevel of serum 25-OH vitamin D less than 20 ng/mL (1,2).The Endocrine Society went on to further define vitamin Dinsufficiency as a level between 21 and 29 ng/mL (2).1. IOM ([place] of [place]). 2010. Dietary reference intakes for calcium and D. [place]: The National Academies Press.2. Bobo MF, Estrellita NC, Maddi CALIX, et al. Evaluation, treatment, and prevention of vitamin D deficiency: an Endocrine Society clinical practice guideline. JCEM. 2010; 96(7):1911-30. :09 MICROALBUMIN: CREATININE RATIO Comments: PATIENT WAS FASTINGPERFORMED BY: [facility] Tlvqhp4729 Ryan RoadDublin [place] [id number] (70999) AND (49113) Microalb/Creat Ratio 24.2 {mg/g_creat} (Normal) Range: 0.0-30.0 Microalbumin, Urine 37.1 ug/mL (Abnormal) Range: 0.0-17.0 Creatinine, Urine 153.6 mg/dL (Normal) Range: 15.0-278.0 :09 METABOLIC PANEL, COMPREHENSIVE Comments: PATIENT WAS FASTINGPERFORMED BY: [employer]70 Ryan [facility] [id number] (39395) ALT (SGPT) 9 [iU]/L (Normal) Range: 0-32 [...] MANUAL DIFF Comments: PATIENT WAS FASTINGPERFORMED BY: [employer]70 Ryan [facility] MovesFormerly [facility] [id number] Information: [id number] (65238) Immature Grans (Abs) 0.0 {x10E3/uL} (Normal) Range: [...] {x10E3/uL} (Normal) Range: 3.4-10.8 :09 LIPID PANEL (29752) Comments: PATIENT WAS FASTINGPERFORMED BY: LabCoRobert Wood Johnson University HospitalOtoanp9155 [facility] [id number] VLDL Cholesterol Jyoti VLDLCH mg/dL (Normal) Range: [...] Cholesterol, Total 173 mg/dL (Normal) Range: 100-199 1-Xfy-084279:23 HgA1C , Office (03427) HgA1C , Office 7.2 % (Abnormal) Range: 4.6 - 7.1 16-Rce-918197:08 FOOT MIN 3 VIEWS Radiology Report See [...] Babcock M.D.November 02, 2012 at 3:41:31 PM [id number] Signed GP/GP If you are the referring physician and would like to consult with theradiologist who provided this interpretation, please contact Imani Hayes at [phone]. If this radiologist is unavailable, youwill be directed to another radiologist to assist. If you are a patient with a question regarding this report, pleasecontactyour referring lisa mavisnora directly. Professional Interpretation Provided By: [employer], Phone , These documents contain legally protected [...] return or destructionofthese documents. Dictated on 11/02/12 154 by Emma Babcock MDranscribed on 11/02/12 154 by ITS IMPORTSign by John Babcock MD on 11/02/12 1544 Sign by: John Babcock MD 37-Xpx-432694:33 MICROALBUMIN: CREATININE RATIO Comments: PATIENT WAS FASTINGPERFORMED BY: [facility] PartnersRobert Wood Johnson University HospitalFictja9480 [facility] [id number] (77183) AND (61328) Microalb/Creat Ratio 31.2 {mg/g_creat} (Abnormal) Range: 0.0-30.0 Microalbumin, Urine 44.7 ug/mL (Abnormal) Range: 0.0-17.0 Creatinine, Urine 143.3 mg/dL (Normal) Range: 15.0-278.0 89-Gwn-361054:33 CBC WITH MANUAL DIFF Comments: PATIENT WAS FASTINGPERFORMED BY: IFMR [facility] Channels and ServicesMunson Healthcare Cadillac Hospital6370 [facility] [id number] Information: [id number] (98355) Immature Grans (Abs) 0.0 {x10E3/uL} (Normal) Range: [...] 3.77-5.28 WBC 6.9 {x10E3/uL} (Normal) Range: 3.4-10.8 23-Bbp-067876:33 METABOLIC PANEL, COMPREHENSIVE Comments: PATIENT WAS FASTINGPERFORMED BY: LabCoRobert Wood Johnson University HospitalJollmt4790 [facility] [id number] (15756) ALT (SGPT) 10 [iU]/L (Normal) Range: 0-32 [...] Glucose, Serum 158 mg/dL (Abnormal) Range: 65-99 18-Hhz-439628:33 VITAMIN B-12 (CYANOCOBALAMIN) Comments: PATIENT WAS FASTINGPERFORMED BY: [facility] [id number] (27831) Vitamin B12 >1999 pg/mL (Abnormal) Range: 211-946 22-Yvl-455070:33 IRON BINDING CAPACITY (TIBC) Comments: PATIENT WAS FASTINGPERFORMED BY: [facility] [id number] (23563) Iron Saturation 16 % (Normal) Range: 15-55 Iron, Serum 59 ug/dL (Normal) Range: 35-155 UIBC 315 ug/dL (Normal) Range: 150-375 Iron Bind.Cap.(TIBC) 374 ug/dL (Normal) Range: 250-450 86-Ihp-562689:33 FERRITIN (27821) Comments: PATIENT WAS FASTINGPERFORMED BY: [employer] Apertus PharmaceuticalsAmerican Healthcare Systems [id number] Ferritin, Serum 29 ng/mL (Normal) Range: 15-150 53-Kou-155908:33 HEPATIC FUNCTION PANEL Comments: PATIENT WAS FASTINGPERFORMED BY: CTAdventure Sp. z o.o. RoadDublin [place] [id number] (93411) Bilirubin, Direct 0.12 mg/dL (Normal) Range: 0.00-0.40 42-Mmj-965268:33 LIPID PANEL (17658) Comments: PATIENT WAS FASTINGPERFORMED BY: [facility]6370 [facility] [id number] VLDL Cholesterol Jyoti VLDLCH mg/dL (Normal) Range: [...] (Normal) Range: 100-199 :33 Vitamin D Hydroxy (66514) Comments: PATIENT WAS FASTINGPERFORMED BY: LabMunson Healthcare [facility] Hospital6370 [facility] [id number] Vitamin D, 25-Hydroxy 21.3 ng/mL (Abnormal) Range: 30.0-100.0 Comments: Vitamin D deficiency has been defined by the [place] ofMedicine and an Endocrine Society practice guideline as alevel of serum 25-OH vitamin D less than 20 ng/mL (1,2).The Endocrine Society went on to further define vitamin Dinsufficiency as a level between 21 and 29 ng/mL (2).1. IOM ([place] of Medicine). 2010. Dietary reference intakes for calcium and D. [place]: The National Academies Press.2. Bobo MF, Estrellita NC, Maddi CALIX, et al. Evaluation, treatment, and prevention of vitamin D deficiency: an Endocrine Society clinical practice guideline. JCEM. 2010; 96(7):1911-30. :22 HgA1C , Office (50661) HgA1C , Office 6.8 % (Normal) Range: [...] Babcock M.D.August 18, 2012 at 3:19:26 PM [id number] Signed GP/GP If you are the referring physician and would like to consult with theradiologist who provided this interpretation, please contact Imani Hayes at [phone]. If this radiologist is unavailable, youwill be directed to another radiologist to assist. If you are a patient with a question regarding this report, pleasecontactyour referring physician directly. Professional Interpretation Provided By: [employer], Phone , These documents contain legally protected [...] 08/18/12 1522 Sign by: John Babcock MD 3-Yoi-446333:40 BILAT SCRN DIGITAL & CAD Radiology Report [...] Babcock M.D.August 18 3 at 1:37:33 PM [id number] Signed GP/GP If you are the referring physician and would like to consult with theradiologist who provided this interpretation, please contact Sunil louis M.D. at [phone]. If this radiologist is unavailable, youwill be directed to another radiologist to assist. If you are a patient with a question regarding this report, pleasecontactyour referr ing physician directly. Professional Interpretation Provided By: [employer], Phone , These documents contain legally protected [...] 08/18/12 1400 Sign by: John Babcock MD 2-Xpk-060290:36 VERT FX ASSESS/LAT BONE DEN(H) Radiology Report [...] Babcock M.D.August 20, 2012 at 2:14:56 PM [id number] Signed GP/GP If you are the referring physician and would like to consult with [facility] who provided this interpretation, please contact Imani Hayes at [phone]. If this radiologist is unavailable, youwill be directed to another radiologist to assist. If you are a clarice ent with a question regarding this report, pleasecontactyour referring physician directly. Professional Interpretation Provided By: [employer], Phone , These documents con tain legally [...] ITS IMPORTSign by John Babcock MD on 08/20/127 Sign by: John Babcock MD 21-Snv-55262:10 LIPID PANEL (55521) Comments: PATIENT WAS FASTINGPERFORMED BY: [facility]6370 [facility] [id number] VLDL Cholesterol Jyoti VLDLCH mg/dL (Normal) Range: [...] Cholesterol, Total 183 mg/dL (Normal) Range: 100-199 92-Pmj-53192:10 METABOLIC PANEL, COMPREHENSIVE Comments: PATIENT WAS FASTINGPERFORMED BY: [facility] Unxrpc0365 [facility] [id number] (68495) ALT (SGPT) 5 [iU]/L (Normal) Range: 0-32 [...] Glucose, Serum 133 mg/dL (Abnormal) Range: 65-99 38-Ivd-75182:10 IRON BINDING CAPACITY (TIBC) Comments: PATIENT WAS FASTINGPERFORMED BY: [employer] Ulizqm7230 [facility] [id number] ([id number]) Iron Saturation 15 % (Normal) Range: 15-55 Iron, Serum 53 ug/dL (Normal) Range: 35-155 UIBC 308 ug/dL (Normal) Range: 150-375 Iron Bind.Cap.(TIBC) 361 ug/dL (Normal) Range: 250-450 :10 FERRITIN (98216) Comments: PATIENT WAS FASTINGPERFORMED BY: [employer] Ycygca9190 [facility] [id number] Ferritin, Serum 25 ng/mL (Normal) Range: 15-150 :10 VITAMIN B-12 (CYANOCOBALAMIN) Comments: PATIENT WAS FASTINGPERFORMED BY: [employer] Kxntvo7842 [facility] [id number] (07906) Vitamin B12 258 pg/mL (Normal) Range: 211-946 64-Vdv-30067:10 CBC WITH MANUAL DIFF Comments: PATIENT WAS FASTINGPERFORMED BY: [facility] PartnersRobert Wood Johnson University HospitalLfnnkb5020 [facility] [id number] Information: ADD [id number] AND DRAW FEE 99 9380 (56662) Immature Grans (Abs) 0.0 {x10E3/uL} (Normal) Range: [...] (Normal) Range: 4.0-10.5 :10 Vitamin D Hydroxy (20130) Comments: PATIENT WAS FASTINGPERFORMED BY: [employer]70 [facility] [id number] Vitamin D, 25-Hydroxy 20.4 ng/mL (Abnormal) Range: 30.0-100.0 Comments: Vitamin D deficiency has been defined by the [place] ofMedicine and an Endocrine Society practice guideline as alevel of serum 25-OH vitamin D less than 20 ng/mL (1,2).The Endocrine Society went on to further define vitamin Dinsufficiency as a level between 21 and 29 ng/mL (2).1. IOM ([place] of Medicine). 2010. Dietary reference intakes for calcium and D. [place]: The National Academies Press.2. Bobo MF, Estrellita NC, Maddi CALIX, et al. Evaluation, treatment, and prevention of vitamin D deficiency: an Endocrine Society clinical practice guideline. JCEM. 2010; 96(7):1911-30. 9-Vke-811563:08 IRON (57424) Comments: PATIENT WAS FASTINGPERFORMED BY: [employer] [facility] [id number] Iron, Serum 58 ug/dL (Normal) Range: 35-155 8-Cpf-446134:08 FERRITIN (21328) Comments: PATIENT WAS FASTINGPERFORMED BY: [facility] Idsppe0798 [facility] Hospitalbl[facility] [place] [id number] Ferritin, Serum 25 ng/mL (Normal) Range: 13-150 8-Jvc-034436:08 VITAMIN B-12 (CYANOCOBALAMIN) Comments: PATIENT WAS FASTINGPERFORMED BY: [facility] Ykxsgn0365 [facility] Hospital[facility] [place] [id number] (21972) Vitamin B12 390 pg/mL (Normal) Range: 211-946 1-Rkj-587819:08 Vitamin D Hydroxy (54088) Comments: PATIENT WAS FASTINGPERFORMED BY: [facility] Dprpol2232 [facility] HospitalblSaint [facility] [id number] Vitamin D, 25-Hydroxy 25.3 ng/mL (Abnormal) Range: 30.0-100.0 Comments: Vitamin D deficiency has been defined by the [place] of[place]icine and an Endocrine Society practice guideline as alevel of serum 25-OH vitamin D less than 20 ng/mL (1,2).The Endocrine Society went on to further define vitamin Dinsufficiency as a level between 21 and 29 ng/mL (2).1. IOM ([place] of Medicine). 2010. Dietary reference intakes for calcium and D. [place]: The National Academies Press.2. Bobo MF, Estrellita NC, Maddi CALIX, et al. Evaluation, treatment, and prevention of vitamin D deficiency: an Endocrine Society clinical practice guideline. JCEM. 2010; 96(7):1911-30. 8-Kji-221378:08 METABOLIC PANEL, COMPREHENSIVE Comments: PATIENT WAS FASTINGPERFORMED BY: [facility] Bnyquj5829 [facility] [id number] (53810) ALT (SGPT) 6 [iU]/L (Normal) Range: 0-32 [...] Glucose, Serum 124 mg/dL (Abnormal) Range: 65-99 3-Ckw-728862:08 CBC WITH MANUAL DIFF Comments: PATIENT WAS FASTINGPERFORMED BY: LabCoRobert Wood Johnson University HospitalSgqmqm4130 [facility] [id number] Information: [id number] (44983) Immature Grans (Abs) 0.0 {x10E3/uL} (Normal) Range: [...] 3.77-5.28 WBC 8.2 {x10E3/uL} (Normal) Range: 4.0-10.5 8-Lcw-886002:08 LIPID PANEL (81549) Comments: PATIENT WAS FASTINGPERFORMED BY: LabCoRobert Wood Johnson University HospitalQzjftc2607 [facility] [id number] VLDL Cholesterol Jyoti VLDLCH mg/dL (Normal) Range: [...] Cholesterol, Total 166 mg/dL (Normal) Range: 100-199 7-Ueo-640701:56 HgA1C , Office (37795) HgA1C , Office 7.4 % (Abnormal) Range: 4.6 - 7.1 1-Jhi-369845:56 Blood Glucose , Office (70261) Blood Glucose , Office 142 (Normal) 25-Ayx-256771:40 CBCMD RBCM NORM C+C {NORMAL} (Normal) EOS [...] 4.2-5.4 WBC 11.2 K/mm3 (Abnormal) Range: 4.4-11.0 99-Hbs-836186:40 CMP GAP 7 (Normal) Range: 5-15 CL [...] mg/dL suggests DIABETES MELLITUS per A.D.A. criteria. 95-Vtg-79279:04 CHEST WITH CONTRAST Radiology Report See Note [...] Babcock M.D.November 07, 2011 at 1:33:21 PM [id number] Signed GP/GP If you ar e the referring physician and would like to consult with theradiologist who provided this interpretation, please contact Imani Hayes at [phone]. If this radiologist is unavailable, youw ill [...] 11/07/11 1340 Sign by: John Babcock MD 67-Apa-112602:41 Pathology Report Comments: PERFORMED BY: [employer]urn[employer] [facility] Bluw37561 [facility] [id number] BY: [employer] [facility] Chyzchx95964 [facility] [id number] Information: [id number] See MATER Comments: Material submitted: .SHAVE BIOPSY [...] HALVES ARE SUBMITTEDIN TWO CASSETTES, A1 AND A2.[facility] .139923 46-Rnu-630231:06 CBC WITH MANUAL DIFF Comments: PATIENT NOT FASTINGPERFORMED BY: [facility] Ajkjde3728 Ryan RoadFormerly [facility] [id number] Information: [id number] (70514) Immature Grans (Abs) 0.0 {x10E3/uL} (Normal) Range: [...] 3.77-5.28 WBC 7.9 {x10E3/uL} (Normal) Range: 4.0-10.5 52-Llo-009490:06 LDH (LD) (LACTATE DEHYDROGENASE) Comments: PATIENT NOT FASTINGPERFORMED BY: [facility]6370 [facility] [id number] (35124) LDH 198 [iU]/L (Normal) Range: 0-214 36-Ene-100779:06 IRON BINDING CAPACITY (TIBC) Comments: PATIENT NOT FASTINGPERFORMED BY: [facility]6370 [facility] [id number] (88868) Iron Saturation 11 % (Abnormal) Range: 15-55 Iron, Serum 46 ug/dL (Normal) Range: 35-155 UIBC 389 ug/dL (Abnormal) Range: 150-375 Iron Bind.Cap.(TIBC) 435 ug/dL (Normal) Range: 250-450 :06 FERRITIN (38902) Comments: PATIENT NOT FASTINGPERFORMED BY: [facility]6370 [facility] [id number] Ferritin, Serum 12 ng/mL (Abnormal) Range: 13-150 8-Jzg-239538:03 HgA1C , Office (70869) HgA1C , Office 7.1 % (Normal) Range: 4.6 - 7.1 :34 CBC WITH MANUAL DIFF (73837) Comments: PATIENT WAS FASTINGPERFORMED BY: [facility]6370 [facility] [id number] Immature Grans (Abs) 0.0 {x10E3/uL} (Normal) Range: [...] 3.77-5.28 WBC 8.3 {x10E3/uL} (Normal) Range: 3.4-10.8 5-Klz-815816:11 FECAL OCCULT- Tubes sent home (83664) FECAL OCCULT HGB ASSAY, QUAL, 1-3 SIMULTANEOU positive (Normal) 6-Kyq-759111:30 HgA1C , Office (41123) HgA1C , Office 7.3 % (Abnormal) Range: [...] the presence of intrinsic factor blocking antibodies. 43-Ywh-707681:09 CBCMD MICRO RARE (Normal) ANISO RARE (Normal) [...] 76.8 mg/L (Normal) CREU 109.3 mg/dL (Normal) 48-Jfz-703267:09 VITD 23.9 ng/mL (Abnormal) Comments: appt 05-14-11 Range: 30.0-100.0 Comments: Vitamin D deficiency has been defined by the [place] of[place]icine and an Endocrine Society practice guideline as alevel of serum 25-OH vitamin D less than 20 ng/mL (1,2).The Endocrine Society went on to further define vitamin Dinsufficiency as a level between 21 and 29 ng/mL (2).1. IOM ([place] of Medicine). 2010. Dietary reference intakes for calcium and D. [place]: The National Academies Press.2. Bobo MF, Estrellita NC, Maddi CALIX, et al. Evaluation, treatment, and prevention of vitamin D deficiency: an Endocrine Society clinical practice guideline. JCEM. 2010; 96(7): 1911-30.Performed at: [address] [id number] Director: Charisma Hamilton MD, Phone: [phone] 5-Ohv-484434:21 CHEST WITHOUT CONTRAST Radiology Report See Note [...] regarding this report, please jyoti edison felipe 40J9wiscpte line @ Dictated on 02/15/11 1126 by Shirin Alarcon DOranscribed on 02/15/11 1733 by ITS IMPORTSign by Emery Alarcon DO on 02/15/11 1734 Sign by: Emery Alarcon DO 6-Bpu-276545:30 HgA1C , Office (46767) HgA1C , Office 7.4 % (Abnormal) Range: 4.6 - 7.1 5-Vva-750464:30 Blood Glucose , Office (72013) Blood Glucose , Office 153 (Normal) 3-Gbx-291957:07 CHEST, PA AND LATERAL Radiology Report See [...] ANNAMARIE WOODWARD MD :01 HgA1C , Office (31465) HgA1C , Office 7.9 % (Abnormal) Range: 4.6 - 7.1 : Blood Glucose , Office (07768) Blood Glucose , Office 133 (Normal) :52 [...] CREAT 107.1 mg/dL (Normal) :52 VIT D,25 01157 19.0 ng/mL (Abnormal) Range: 32.0-100.0 Comments: Recent studies consider the lower limit of 32.0 ng/mL to helena threshold for optimal health.Sunday BETTENCOURT. J Nutr. 2004;135(2):317-22.Performed at: [place] [address] Director: Charisma Hamilton MD, Phone: [phone] :[phone] VITAMIN B12 447 pg/mL (Normal) Range: [...] KEYA TREJO on 04/05/10 0305 Sign by: MAYAIZABELKEYA 22-Hhn-369080:02 DEXA BONE DENSITY STUDY (HP) Radiology Report See Note (Normal) Comments: CLINICAL:Female, 69 years old. The patient is postmenopausal. EXAMINATION:DUAL ENERGY X-RAY ABSORPTIOMETRY / DEXA. TECHNIQUE:Bone Mineral Density (BMD) measurements of lumbar spine and bila teralhipswer e obtained using a Approva scanner.. COMPARISON:Comparison is made with prior examination [...] by: John Babcock :28 HgA1C , Office (73643) HgA1C , Office 8.2 % (Abnormal) Range: 4.6 - 7.1 :28 Blood Glucose , Office (48865) Blood Glucose , Office 205 (Normal) :27 [...] CHOL 169 mg/dL (Normal) Comments: <200 mg/dL Ulhxdyslt119-678 mg/dL Borderline>240 mg/dL High Risk HDL 24 [...] the presence of intrinsic factor blocking antibodies. 0-Kls-403153:47 CHEST WITHOUT CONTRAST Radiology Report See Note (Normal) Comments: Exam Number: [id number] CT SCAN OF THE THORAX Multiple axial [...] unchanged as well. Reported By: JOHN BABCOCK 33-Bfr-131237:27 VITAMIN B-12 (CYANOCOBALAMIN) Comments: PATIENT NOT FASTINGPERFORMED BY: [employer] [facility] ServicesSaint [facility] Bkakdm7430 [facility] [id number] (51104) Vitamin B12 338 pg/mL (Normal) Range: 211-946 Comments: Please note reference interval change :27 Vitamin D Hydroxy (76165) Comments: PATIENT NOT FASTINGPERFORMED BY: [facility] Qxlmqg1746 [facility] [id number] Vitamin D, 25-Hydroxy 17.2 ng/mL (Abnormal) Range: 32.0-100.0 Comments: Recent studies consider the lower limit of 32.0 ng/mL to be athreshold for optimal health.Sunday BETTENCOURT. J Nutr. 2004;135(2):317-22. :27 CBC WITH MANUAL DIFF Comments: PATIENT NOT FASTINGPERFORMED BY: [employer] [facility] ServicesSaint [facility] Oxqotj9281 [facility] [id number] Information: [id number] (80975) Baso (Absolute) 0.0 {x10E3/uL} (Normal) Range: 0.0-0.2 [...] 3.80-5.10 WBC 7.3 {x10E3/uL} (Normal) Range: 4.0-10.5 26-Xzm-110663:27 METABOLIC PANEL, COMPREHENSIVE Comments: PATIENT NOT FASTINGPERFORMED BY: LabCoRobert Wood Johnson University HospitalAjdsyz1702 [facility] [id number] (95537) ALT (SGPT) 7 [iU]/L (Normal) Range: 0-40 [...] Glucose, Serum 120 mg/dL (Abnormal) Range: 65-99 39-Ftb-424252:38 Blood Glucose , Office (81907) Blood Glucose , Office 133 (Normal) :57 [...] CHOL 186 mg/dL (Normal) Comments: <200 mg/dL Kohhfsqqh612-179 mg/dL Borderline>240 mg/dL High Risk :57 LIVER ALT 9 U/L (Abnormal) Range: 12-78 D BILI 0.10 mg/dL (Normal) Range: 0.00-0.30 T BILI 0.20 mg/dL (Normal) Range: 0.00-1.00 ALB 3.7 g/dL (Normal) Range: 3.4-5.0 ALK P 51 U/L (Normal) Range: 50-136 AST 6 U/L (Abnormal) Range: 15-37 T PROT 7.3 g/dL (Normal) Range: 6.4-8.2 49-Tld-649354:17 KNEE,4 OR MORE VIEWS (MT) Radiology Report See Note (Normal) Comments: Exam Number: [id number] CLINICAL:Medial pain X-RAY EXAMINATION RIGHT KNEE TECHNIQUE: [...] Report See Note (Normal) Comments: Exam Number: [id number] NONCONTRAST CHEST CT Comparison is made with [...] difficile Toxins Negative (Normal) Comments: PERFORMED BY: [facility]MedFormer[facility] [id number] :51 A+B, EIA :51 Ova + Parasite Exam Comments: PERFORMED BY: [facility] [id number] Ova + Parasite Exam Final report (Normal) Comments: These results were obtained using wet preparation(s) and trichromestained smear. This test does not include testing for Cryptosporidiumparvum, Cyclospora, or Microsporidia. Result 1 NOCP (Normal) Comments: No ova, cysts, or parasites seen. :51 Stool Culture Comments: Clinical Information: SRC:ST PERFORMED BY: [facility] [id number] Campylobacter Culture Final report (Normal) E coli Shiga Toxin EIA Negative (Normal) Result 1 NCI (Normal) Comments: No Campylobacter species isolated. Result 1 NSS (Normal) Comments: No Salmonella or Shigella recovered. Salmonella/Shigella Screen Final report (Normal) 72-Fnk-473385:51 White Blood Cells (WBC), Comments: PERFORMED BY: [facility]6370 [facility] [id number] Stool Result 1 NWBC (Normal) Comments: No white blood cells seen. White Blood Cells (WBC), Final report (Normal) Comments: Reference Range: None Seen Stool :52 CBC With Differential/Platelet Comments: PATIENT WAS FASTINGPERFORMED BY: [facility]6370 [facility] [id number] Baso (Absolute) 0.0 {x10E3/uL} (Normal) Range: 0.0-0.2 [...] Panel (14) Comments: PATIENT WAS FASTINGPERFORMED BY: [employer] [facility] [id number] A/G Ratio 1.6 (Normal) Range: 1.1-2.5 Albumin, [...] With LDL/HDL Comments: PATIENT WAS FASTINGPERFORMED BY: [employer]6370 [facility] [id number] Ratio Cholesterol, Total 135 mg/dL (Normal) Range: [...] pg/mL (Normal) Comments: PATIENT WAS FASTINGPERFORMED BY: [employer] [facility] [id number] 0:52 Range: 211-911 Vitamin D, 25-Hydroxy 13.6 ng/mL Comments: PATIENT WAS FASTINGPERFORMED BY: [employer] LabWithin36370 Ryan [facility] [id number] 0:52 (Abnormal) Range: 32.0-100.0 Comments: Recent studies consider the lower limit of 32.0 ng/mL to be athreshold for optimal health.Sunday BETT[place]OURT. J Nutr. 2004;135(2):317-22. :32 HgA1C , Office (89361) HgA1C , Office 6.9 % (Normal) Range: 4.6 - 7.1 :32 Blood Glucose , Office (54379) Blood Glucose , Office 179 (Normal) 78-Kdu-395073:25 ABDOMEN LIMITED US () Radiology Report See Note (Normal) Comments: Exam Number: [id number] CLINICAL:Abdominal pain. LIMITED ABDOMINAL ULTRASOUND COMPARISON:None. FINDINGS: [...] of cholecystitis. Reported By: HALIMA TURNER M.D. 6-Rrj-384847:35 Urinalysis, Office (80455) UA - BILIRUBIN Moderate (Normal) UA - [...] NOT FASTINGPERFORMED BY: LabCoRobert Wood Johnson University HospitalFibzus0975 [facility] [id number] A/G Ratio 1.3 (Normal) Range: 1.1-2.5 Albumin, [...] (7) Comments: PATIENT NOT FASTINGPERFORMED BY: [facility] Anmrfy4899 [facility] [id number] Bilirubin, Direct 0.17 mg/dL (Normal) Range: 0.00-0.40 [...] g/dL (Normal) Range: 6.4-8.2 :27 VIT D,25 57417 16.4 ng/mL (Abnormal) Comments: ORDERED LIPID,LIVER ALSO Range: 32.0-100.0 Comments: Recent studies consider the lower limit of 32.0 ng/mL to helena threshold for optimal health.Sunday BW. J Nutr. 2004;135(2):317-22.Performed At: [facility]6370 [place], [place] [id number] 40-Nss-10784:27 VITAMIN B12 430 pg/mL (Normal) Comments: ORDERED LIPID,LIVER ALSO Range: 254-1320 51-Jjm-292815:01 BRAIN/HEAD W/WO CONTRAST Radiology Report See Note (Normal) Comments: Exam Number: [id number] CT OF THE HEAD WITH AND WITHOUT CONTRAST QKHTGKA84-ywrg-bvo woman who has had vague symptoms of [...] Dr. Uriostegui, who is covering for Dr. Fast, at approximately 1445 hours on June 02, [...] mg/dL (Normal) Range: 0.00-0.30 :51 VIT D,25 05560 6.3 ng/mL (Abnormal) Range: 32.0-100.0 Comments: Recent studies consider the lower limit of 32.0 ng/mL to helena threshold for optimal health.Sunday BETTENCOURT. J Nutr. 2004;135(2):317-22.Performed At: [address] [id number] :51 VITAMIN B12 301 pg/mL (Normal) Range: 211-911 :43 CHEST WITHOUT CONTRAST Radiology Report See Note (Normal) Comments: Exam Number: [id number] CLINICAL: Nodules CT CHEST WITHOUT CONTRAST COMPARISON:April [...] cardiopulmonary disease Reported By: RIO KAY M.D. 56-Tlm-819208:13 HgA1C , Office (12825) HgA1C , Office 7.5 % (Abnormal) Range: 4.6 - 7.1 47-Uub-616922:13 Blood Glucose , Office (17325) Blood Glucose , Office 203 (Normal) Antiparietal Cell 2.2 {Units} Comments: PERFORMED BY: [employer] [id number] 0:04 Antibody (Normal) Range: 0.0-20.0 Comments: Negative 0.0 - 20.0 Equivocal 20.1 - 24.9 Positive >24.9 . Parietal Cell Antibodies are found in 90% of patients with pernicious anemia and 30% of first degree relatives with pernicious anemia. 60-Nkj-321847:04 CBC With Differential/Platelet Comments: PERFORMED BY: [employer] [id number] Baso (Absolute) 0.0 {x10E3/uL} Range: 0.0-0.2 (Normal) [...] Factor Abs, Negative (Normal) Comments: PERFORMED BY: [employer] [address] [id number] 0:04 Serum Vitamin B12 472 pg/mL (Normal) Comments: PERFORMED BY: [employer] [address] [id number] 0:04 Range: 211-911 :32 Fecal Occult Blood , Office (48694) Fecal Occult Blood Negative (Normal) , Office Ferritin, Serum 21 ng/mL (Normal) Comments: PATIENT NOT FASTINGPERFORMED BY: [facility] [id number] :21 Range: 10-291 Folate (Folic >24.0 ng/mL (Normal) Comments: PATIENT NOT FASTINGPERFORMED BY: [facility] [id number] :21 Acid), Serum Comments: Indeterminate: 3.4 - 5.4 Deficient: <3.4 :21 Iron and TIBC Comments: PATIENT NOT FASTINGPERFORMED BY: [facility] [id number] Iron Bind.Cap.(TIBC) 377 ug/dL (Normal) Range: 250-450 Iron Saturation 13 % (Abnormal) Range: 15-55 Iron, Serum 49 ug/dL (Normal) Range: 35-155 UIBC 328 ug/dL (Normal) Range: 150-375 LDH 145 [iU]/L (Normal) Comments: PATIENT NOT FASTINGPERFORMED BY: [facility]6370 [facility] [id number] :21 Range: 100-250 Reticulocyte Count 2.1 % (Normal) Comments: PATIENT NOT FASTINGPERFORMED BY: [place] 8[address]1470 [facility] [id number] :21 Range: 0.5-3.0 Vitamin B12 182 pg/mL Comments: PATIENT NOT FASTINGPERFORMED BY: [address] [id number] :21 (Abnormal) Range: 211-911 :33 HgA1C , Office (13030) Comments: done>Wf. HgA1C , Office 6.8 % (Normal) Range: 4.6 - 7.1 :33 Blood Glucose , Office (95464) Comments: done>Wf. Blood Glucose , Office 150 [...] 47-70 WBC 6.1 K/mm3 (Normal) Range: 4.4-11.0 46-Ksy-504894:06 LIPID Comments: SEND A COPY OF THE [...] mg/dL VLDL 54 mg/dL (Abnormal) Range: 5-40 37-Hdp-178996:06 LIVER Comments: SEND A COPY OF THE LIPID AND LIVER RESULTSONLY. JLG ALB 3.6 g/dL (Normal) Range: 3.4-5.0 ALK P 47 U/L (Abnormal) Range: 50-136 ALT 25 U/L (Abnormal) Range: 30-65 AST 14 U/L (Abnormal) Range: 15-37 D BILI 0.06 mg/dL (Normal) Range: 0.00-0.30 T BILI 0.31 mg/dL (Normal) Range: 0.00-1.00 T PROT 6.7 g/dL (Normal) Range: 6.4-8.2 16-Qro-216925:27 BILAT SCRN DIGITAL & CAD Radiology Report See Note (Normal) Comments: Exam Number: [id number] MAMMOGRAM, BILATERAL SCREENING DIGITAL AND CAD HISTORYRoutine [...] kailash werealso examined with computer-aided detection software ([employer] Reported By: KEYA TREJO M.D. 39-Rbp-726467:27 DEXA BONE DENSITY STUDY (HP) Radiology Report See Note (Normal) Comments: Exam Number: [id number] BONE DENSITOMETRY HISTORYPostmenopausal. TECHNIQUE Bone densitometry of the lumbar spine and left hip was performed. Thebest criteria for evaluation of osteoporosis is the T- value, whichrepresents the comparison of the patient's bone mass to an expectedpeak bone mass. For most patients, the mean T-value of L1 through L4is used to evaluate the lumbar spine. Based on the [facility] WorldHealth Organization classifications, the hip is [...] left hip. Reported By: KEYA TREJO M.D. 55-Wwl-146168:46 HgA1C , Office (24354) HgA1C , Office 6.7 % (Normal) Range: 4.6 - 7.1 93-Shg-314556:46 Blood Glucose , Office (63419) Blood Glucose , Office 170 (Normal) :46 [...] Report See Note (Normal) Comments: Exam Number: [id number] RIGHT KNEE CLINICAL INFORMATIONKnee pain. Standing AP [...] Report See Note (Normal) Comments: Exam Number: [id number] CT CHEST NONCONTRAST CLINICAL STATEMENTFollow of lung [...] and esophagus. Reported By: RICHARD CANADA M.D. 28-Wwj-542703:33 HgA1C , Office (18993) HgA1C , Office 6.5 % (Normal) Range: 4.6 - 7.1 :33 Blood Glucose , Office (22995) Blood Glucose , Office 89 (Normal) :34 [...] Range: 6.4-8.2 :17 Blood Glucose , Office (17343) Blood Glucose , Office 175 (Normal) :41 [...] Report See Note (Normal) Comments: Exam Number: [id number] CT SCAN OF CHEST HISTORYCough. Consecutive axial [...] is suggested. Reported By: KEYA TREJO M.D. 5-Kls-155918:45 HgA1C , Office (39474) Comments: [facility] HgA1C , Office 6.6 % (Normal) Range: 4.6 - 7.1 5-Iln-887629:45 Blood Glucose , Office (67223) Comments: [facility] Blood Glucose , Office 105 (Normal) [...] Report See Note (Normal) Comments: Exam Number: [id number] CHEST PA AND LATERAL STATEMENTCough and pneumonia. [...] CHIVO MONIQUE M.D. :41 HgA1C , Office (87491) HgA1C , Office 6.8 % (Normal) Range: 4.6 - 7.1 :41 Blood Glucose , Office (73620) Blood Glucose , Office 126 (Normal) 82-Cbz-334618:11 CBCD,SMEAR DIFF CELLS COUNTED 100 (Normal) EOS [...] 47-70 WBC 7.4 K/mm3 (Normal) Range: 4.4-11.0 59-Ofj-727318:11 COMP METABOLIC A/G 1.1 {RATIO} (Normal) Range: [...] T PROT 7.1 g/dL (Normal) Range: 6.4-8.2 06-Kba-901967:11 COMPLETE UA BACTERIA 0 SEEN {/hpf} (Normal) [...] 0-5 SEEN :11 MICROALBUMIN,UR 9.1 mg/L (Normal) :11 PFLIP CHOL [...] mg/dL VLDL 58 mg/dL (Abnormal) Range: 5-40 06-Ssl-432079:11 TSH 0.85 {uIU/mL} (Normal) Range: 0.34-4.82 :11 HgA1C , Office (64857) HgA1C , Office 6.7 % (Normal) Range: 4.6 - 7.1 :11 Blood Glucose , Office (10462) Blood Glucose , Office 153 (Normal) Plan of Care Name Dates Details Instructions Diabetes mellitus type II, controlled : Follow up in 3 months Indication: Diabetes mellitus type II, controlled Asthma : Reviewed Hardening Machine Operator Letter Indication: Asthma Coronary artery disease : Reviewed Hardening Machine Operator Letter Indication: Coronary artery disease Hypertensive heart disease without heart failure : HTN/CAD Red Flags Indication: Hypertensive heart disease without heart failure ATRIAL FIBRILLATION (Renamed from A-fib) : Reviewed Hardening Machine Operator Letter Indication: ATRIAL FIBRILLATION (Renamed from A-fib) Type 2 diabetes mellitus, uncontrolled : Follow up in 3 months Indication: Type 2 diabetes mellitus, uncontrolled Coronary artery disease : Reviewed Hardening Machine Operator Letter Indication: Coronary artery disease Hypertensive heart [...] heart failure Coronary artery disease : Reviewed Hardening Machine Operator Letter Indication: Coronary artery disease Diabetes mellitus [...] ATRIAL FIBRILLATION (Renamed from A-fib) : Reviewed Hardening Machine Operator Letter Indication: ATRIAL FIBRILLATION (Renamed from A-fib) [...] ATRIAL FIBRILLATION (Renamed from A-fib) : Reviewed Hardening Machine Operator Letter Indication: ATRIAL FIBRILLATION (Renamed from A-fib) Type 2 diabetes mellitus, uncontrolled : Follow up in 3 months Indication: Type 2 diabetes mellitus, uncontrolled Gout, arthritis : Reviewed Lab Indication: Gout, arthritis Asthma : Reviewed Hardening Machine Operator Letter Indication: Asthma Type 2 diabetes mellitus, uncontrolled : *Diabetes Education Indication: Type 2 diabetes mellitus, uncontrolled Coronary artery disease : Reviewed Hardening Machine Operator Letter Indication: Coronary artery disease Mixed dyslipidemia [...] Indication: Asthma Coronary artery disease : Reviewed Hardening Machine Operator Letter Indication: Coronary artery disease Hypertensive heart [...] meninges : Follow up on Friday with [facility] Indication: Benign neoplasm of cerebral meninges Type [...] : Follow up in 10 days with [facility] Indication: Cough Laryngitis : Laryngitis Education Indication: [...] pelvic and bimanual performed Planned Observations TSH ([id number])Indication: Diabetes mellitus type II, controlled On: 15 Request URINALYSIS, W/ MICRO ([id number])Indication: Diabetes mellitus type II, controlled On: :15 Request MICROALBUMIN: CREATININE RATIO ([id number]) AND ([id number])Indication: Diabetes mellitus type II, controlled On: 9-Gze-095693:15 Request METABOLIC PANEL, COMPREHENSIVE ([id number])Indication: Diabetes mellitus type II, controlled On: 2-Jlf-677711:15 Request CBC W/AUTO DIFF WBC ([id number])Indication: Diabetes mellitus type II, controlled On: 3-Sug-087415:15 Request LIPOPROTEIN, BLD, BY NMR ([id number])Indication: Diabetes mellitus type II, controlled On: 5-Eex-052808:15 Request VITAMIN B-12 (CYANOCOBALAMIN) ([id number])Indication: Other vitamin B12 deficiency anemia On: 3-Eew-814094:13 Request TSH ([id number])Indication: ATRIAL FIBRILLATION (Renamed from A-fib) On: 34-Aem-160112:16 Request URINALYSIS, W/ MICRO ([id number])Indication: Diabetes mellitus type II, controlled On: 09-Vui-531163:16 Request MICROALBUMIN: CREATININE RATIO (90976) AND (21472)Indication: Diabetes mellitus type II, controlled On: 49-Dzt-457268:16 Request METABOLIC PANEL, COMPREHENSIVE (19844)Indication: Diabetes mellitus type II, controlled On: 78-Kvz-540921:16 Request LIPOPROTEIN, BLD, BY NMR ([id number])Indication: Diabetes mellitus type II, controlled On: 98-Lvq-875261:16 Request LIPID PANEL ([id number])Indication: Diabetes mellitus type II, controlled On: 82-Bjo-778258:16 Request CBC W/AUTO DIFF WBC ([id number])Indication: Diabetes mellitus type II, controlled On: 41-Fxb-762232:15 Request VITAMIN B-12 (CYANOCOBALAMIN) (37303)Indication: Other vitamin B12 deficiency anemia On: 4-Thx-879850:50 Request TSH ([id number])Indication: ATRIAL FIBRILLATION (Renamed from A-fib) On: 7-Hyw-368060:50 Request URINALYSIS, W/ MICRO (28013)Indication: Hypertensive heart disease without heart failure On: 8-Srp-755930:49 Request MICROALBUMIN: CREATININE RATIO (17590) AND ([id number])Indication: Hypertensive heart disease without heart failure On: 7-Mku-249664:49 Request METABOLIC PANEL, COMPREHENSIVE (91599)Indication: Hypertensive heart disease without heart failure On: 2-Izp-722307:49 Request CBC W/AUTO DIFF WBC ([id number])Indication: Hypertensive heart disease without heart failure On: 7-Tnu-577202:49 Request CALCIFEDIOL (35735)Indication: Vitamin D deficiency, unspecified On: 0-Fho-959922:49 Request LIPID PANEL (31961)Indication: Mixed dyslipidemia On: 8-Ofd-887495:49 Request URINALYSIS, W/ MICRO (63945)Indication: Type 2 diabetes mellitus, uncontrolled On: 08-Ead-855012:23 Request MICROALBUMIN: CREATININE RATIO (17914) AND (62810)Indication: Type 2 diabetes mellitus, uncontrolled On: 72-Wjk-437665:23 Request HEMOGLOBIN GLYCLATED (HGB A1C) (98360)Indication: Type 2 diabetes mellitus, uncontrolled On: 91-Wax-764190:03 Request HgA1C , Office (94204)Indication: Type 2 diabetes mellitus, uncontrolled On: 19-Gqb-157971:46 Request Vitamin D Hydroxy (31136)Indication: Vitamin D deficiency, unspecified On: 24-Iac-910728:16 Request VITAMIN B-12 (CYANOCOBALAMIN) (39816)Indication: Other vitamin B12 deficiency anemia On: 17-Vww-495085:16 Request CBC with auto diff (25781)Indication: Iron deficiency anemia, unspecified On: 24-Aww-470965:15 Request LIPID PANEL (85047)Indication: Mixed dyslipidemia On: 80-Ahn-672605:15 Request METABOLIC PANEL, COMPREHENSIVE (73690)Indication: Type 2 diabetes mellitus, uncontrolled On: 26-Mwk-036512:15 Request CBC W/AUTO DIFF WBC ([id number])Indication: Iron deficiency anemia, unspecified On: 85-Bgq-815576:44 Request URINALYSIS, W/ MICRO (78221)Indication: Heart disease, hypertensive, malignant, without heart failure On: 72-Kux-010988:44 Request METABOLIC PANEL, COMPREHENSIVE (78254)Indication: Heart disease, hypertensive, malignant, without heart failure On: 71-Yee-612754:44 Request MICROALBUMIN: CREATININE RATIO (28348) AND (44355)Indication: Heart disease, hypertensive, malignant, without heart failure On: 51-Rse-948003:44 Request IRON ([id number])Indication: Iron deficiency anemia, unspecified On: 26-Xrx-058237:44 Request CBC, Platelets & Auto Diff (18771)Indication: SOB On: 0-Ilq-311178:09 Request Renal function Panel ([id number])Indication: SOB On: 4-Hfr-150071:09 Request Vitamin D Hydroxy (01228)Indication: Vitamin D deficiency, unspecified On: 62-Nsz-315334:04 Request VITAMIN B-12 (CYANOCOBALAMIN) (32222)Indication: Other vitamin B12 deficiency anemia On: 88-Vws-802932:04 Request METABOLIC PANEL, COMPREHENSIVE (88173)Indication: Type 2 diabetes mellitus, uncontrolled On: 51-Sek-548685:04 Request IRON ([id number])Indication: Iron deficiency anemia, unspecified On: 50-Dzk-574632:59 Request IRON ([id number])Indication: Iron deficiency anemia, unspecified On: 50-Ouz-591282:18 Request CBC WITH MANUAL DIFF ([id number])Indication: Iron deficiency anemia, unspecified On: 29-Tbj-378839:43 Request METABOLIC PANEL, COMPREHENSIVE (63522)Indication: Hypertensive heart disease without heart failure On: 99-Qwm-865095:43 Request CBC with manual diff (21172)Indication: Anemia On: :53 Request Comments: recheck in 3 months Ferritin (37807)Indication: Anemia On: :53 Request Iron Binding Capacity (TIBC) (43487)Indication: Anemia On: :53 Request Iron ([id number])Indication: Anemia On: :53 Request LIPID PANEL (36644)Indication: Mixed dyslipidemia On: 09-Rov-443071:43 Request IRON ([id number])Indication: Iron deficiency anemia, unspecified On: 06-Nhy-421482:35 Request Vitamin D Hydroxy (81024)Indication: Vitamin D deficiency, unspecified On: 6-Ill-260900:14 Request METABOLIC PANEL, COMPREHENSIVE (46643)Indication: Type 2 diabetes mellitus, uncontrolled On: 5-Kyq-563813:13 Request IRON BINDING CAPACITY (TIBC) (72307)Indication: Iron deficiency anemia, unspecified On: 5-Gst-017139:10 Request FERRITIN (16304)Indication: Iron deficiency anemia, unspecified On: 6-Tvv-765440:10 Request IRON ([id number])Indication: Iron deficiency anemia, unspecified On: 5-Fah-063864:10 Request MICROALBUMIN: CREATININE RATIO (70291) AND (48792)Indication: Type 2 diabetes mellitus, uncontrolled On: :58 Request METABOLIC PANEL, COMPREHENSIVE (99640)Indication: Type 2 diabetes mellitus, uncontrolled On: : Request CBC WITH MANUAL DIFF ([id number])Indication: Type 2 diabetes mellitus, uncontrolled On: :58 Request Vitamin D Hydroxy ([id number])Indication: Vitamin D deficiency, unspecified On: : Request VITAMIN B-12 (CYANOCOBALAMIN) (64727)Indication: Other vitamin B12 deficiency anemia On: :58 Request LIPID PANEL (47693)Indication: Mixed dyslipidemia On: : Request METABOLIC PANEL, COMPREHENSIVE (84231)Indication: Hypertension On: : Request CBC WITH MANUAL DIFF (37267)Indication: Other vitamin B12 deficiency anemia On: : Request VITAMIN D, 1, 25-DIHYDROXY (99691)Indication: Vitamin D deficiency, unspecified On: : Request Vitamin D Hydroxy (13729)Indication: Vitamin D deficiency, unspecified On: :29 Request LIPID PANEL (50874)Indication: Mixed dyslipidemia On: :29 Request METABOLIC PANEL, COMPREHENSIVE (66196)Indication: Diabetes mellitus type II, controlled On: : Request CBC WITH MANUAL DIFF (37213)Indication: Other vitamin B12 deficiency anemia On: :29 Request MICROALBUMIN: CREATININE RATIO (67970) AND (68159)Indication: Diabetes mellitus type II, controlled On: :29 Request VITAMIN B-12 (CYANOCOBALAMIN) (18117)Indication: Other vitamin B12 deficiency anemia On: :29 Request HEMOGLOBIN GLYCLATED (HGB A1C) (03830)Indication: Diabetes mellitus type II, controlled On: :27 Request LIPID PANEL (66143)Indication: Mixed dyslipidemia On: :16 Request METABOLIC PANEL, COMPREHENSIVE (50197)Indication: Type 2 diabetes mellitus, uncontrolled On: :15 Request CBC WITH MANUAL DIFF (25398)Indication: Type 2 diabetes mellitus, uncontrolled On: :15 Request MICROALBUMIN: CREATININE RATIO (36544) AND (40560)Indication: Type 2 diabetes mellitus, uncontrolled On: :15 Request VITAMIN B-12 (CYANOCOBALAMIN) (80651)Indication: Other vitamin B12 deficiency anemia On: :15 Request Vitamin D Hydroxy (44412)Indication: Vitamin D deficiency, unspecified On: :15 Request HgA1C , Office (98595)Indication: Type 2 diabetes mellitus, uncontrolled On: 61-Dge-215390:38 Request VITAMIN B-12 (CYANOCOBALAMIN) (50708)Indication: Other vitamin B12 deficiency anemia On: :55 Request LIPID PANEL (25059)Indication: Mixed dyslipidemia On: :55 Request METABOLIC PANEL, COMPREHENSIVE (49436)Indication: Heart disease, hypertensive, malignant, without heart failure On: :53 Request CBC WITH MANUAL DIFF (30928)Indication: Diverticulitis On: :53 Request LEUKOCYTE COUNT, FECAL (28192)Indication: Diarrhea On: :47 Request C.Difficile, Stool (99323)Indication: Diarrhea On: :47 Request BRO CULTURE-STOOL (72893)Indication: Diarrhea On: :47 Request Metabolic Panel, Comprehensive (61717)Indication: Abdominal pain, unspecified abdominal location On: :46 Request HEPATIC FUNCTION PANEL (17529)Indication: Abdominal pain, unspecified abdominal location On: :46 Request Bilirubin, Direct (33231)Indication: Abdominal pain, unspecified abdominal location On: :44 Request Bilirubin, total (74919)Indication: Abdominal pain, unspecified abdominal location On: :44 Request CBC WITH MANUAL DIFF (21217)Indication: Other vitamin B12 deficiency anemia On: 41-Kvl-158407:15 Request VITAMIN B-12 (CYANOCOBALAMIN) (55863)Indication: Other vitamin B12 deficiency anemia On: 39-Mxm-060303:15 Request LIPID PANEL (36183)Indication: Mixed dyslipidemia On: 38-Uzq-286482:14 Request METABOLIC PANEL, COMPREHENSIVE (36099)Indication: Heart disease, hypertensive, malignant, without heart failure On: 36-Lea-768843:14 Request Vitamin D Hydroxy (09553)Indication: Vitamin D deficiency, unspecified On: 19-Jse-612506:06 Request CBC, PLATELETS & AUT DIFF ([id number])Indication: Other vitamin B12 deficiency anemia On: :45 Request VITAMIN B-12 (CYANOCOBALAMIN) (01133)Indication: Other vitamin B12 deficiency anemia On: :45 Request HEPATIC FUNCTION PANEL (55340)Indication: Mixed dyslipidemia On: :44 Request LIPID PANEL (64251)Indication: Mixed dyslipidemia On: :44 Request Vitamin D Hydroxy (67088)Indication: vit d deficiency On: :33 Request Vitamin D Hydroxy (07754) On: 44-Khp-614240:04 Request VITAMIN B-12 (CYANOCOBALAMIN) (43934)Indication: Other vitamin B12 deficiency anemia On: :04 Request CBC WITH MANUAL DIFF ([id number])Indication: Heart disease, hypertensive, malignant, without heart failure On: 32-Evw-474118:03 Request METABOLIC PANEL, COMPREHENSIVE (95741)Indication: Heart disease, hypertensive, malignant, without heart failure On: 58-Pcx-169074:03 Request LIPOPROTEIN, BLD, BY NMR (77301)Indication: Mixed dyslipidemia On: 90-Pip-488249:01 Request HEPATIC FUNCTION PANEL (68541)Indication: Mixed dyslipidemia On: 01-Mcr-816290: Request LIPID PANEL (93259)Indication: Mixed dyslipidemia On: 35-Hak-485797: Request FOLIC ACID SERUM (33476)Indication: Anemia On: 28-Bky-314529:06 Request FERRITIN (42161)Indication: Anemia On: 09-Oqq-458659:05 Request IRON (97153)Indication: Anemia On: 72-Jng-311876: Request IRON BINDING CAPACITY (TIBC) (51843)Indication: Anemia On: 90-Wnk-910462:05 Request RETICULOCYTE COUNT MANUL ([id number])Indication: Anemia On: 23-Ngj-328732:05 Request LDH (LD) (LACTATE DEHYDROGENASE) (77545)Indication: Anemia On: 77-Trr-060708:05 Request VITAMIN B-12 (CYANOCOBALAMIN) (32829)Indication: Anemia On: 82-Ltv-063133:05 Request CBC WITH MANUAL DIFF ([id number])Indication: Anemia On: :25 Request HEPATIC FUNCTION PANEL (51132)Indication: Mixed dyslipidemia On: :25 Request LIPID PANEL (25085)Indication: Mixed dyslipidemia On: :25 Request MICROALBUMIN URINE QUANT (00834)Indication: Hypertension On: :42 Request TSH ([id number])Indication: Hypertension On: :42 Request METABOLIC PANEL, COMPREHENSIVE (62125)Indication: Diabetes mellitus type II, controlled On: :42 Request HEPATIC FUNCTION PANEL (62817)Indication: Mixed dyslipidemia On: :42 Request LIPID PANEL (41482)Indication: Mixed dyslipidemia On: :42 Request CBC WITH MANUAL DIFF ([id number])Indication: Anemia On: 09-Vfu-40880:36 Request HEPATIC FUNCTION PANEL (51776)Indication: Mixed dyslipidemia On: 16-Upi-57341:36 Request LIPID PANEL (08659)Indication: Mixed dyslipidemia On: :36 Request HgA1C , Office (47168)Indication: Diabetes mellitus type II, controlled On: :17 Request URINALYSIS W/O MICRO (79282)Indication: Hypertension On: 49-Amr-643162:47 Request TSH ([id number])Indication: Hypertension On: 91-Ctq-476317:47 Request METABOLIC PANEL, COMPREHENSIVE (99557)Indication: Hypertension On: 27-Hxi-393869:47 Request CBC WITH MANUAL DIFF ([id number])Indication: Hypertension On: 58-Uxq-533551:47 Request Thin prep Pap (57762)Indication: well female - pap pelvic and bimanual performed On: 0-Vch-759058:02 Request Planned Encounters Medical; 3 Month FU - On: 23-Mar-2018 10:00 [facility] Nia Uriostegui DO, DO, Kathleen Planned Procedures Flu Vaccine (Quadrivalent) On: 15-Dec-2017 Intent 80379Ae: Nia Uriostegui DO Comments: Lot #[id number]-L dltd, IMDose prefilled syringegiven by: Susie Lopez LPN.VIS reviewed and ABN signed Nia Uriostegui DO B 12 Injection, 1000 mcg On: 15-Dec-2017 Intent (J3420)By: Nia Uriostegui DO Comments: 1 ml given rt dltd lot [id number] exp 05/30 Nia Uriostegui DO ELECTROCARDIOGRAM, COMPLETE On: 15-Dec-2017 Intent (ECG) (60356)By: Moody MCFARLAND, Comments: nsr !! yeah- no acute chg poor R wave progression NiaNia Chapa DO ELECTROCARDIOGRAM, COMPLETE On: 27-Aug-2017 Intent (ECG) (62023)By: Moody MCFARLAND, Comments: nsr - ivcd - pvc no acute chg Nia Reed DO B 12 Injection, 1000 mcg On: 28-May-2017 Intent (J3420)By: Nia Uriostegui DO Comments: vitamin b12 1000mcg injectionlot: [id number]:11/2018L DELT IMpt tolerated wellAD OUTSIDE PROPERTY AGENT iNa Uriostegui DO B 12 Injection, 1000 mcg On: 12-Feb-2017 Intent (J3420)By: Nia Uriostegui DO Comments: 1 ml given lt arm lot [id number] exp 06/28 Nia Uriostegui DO B 12 Injection, 1000 mcg On: 29-Nov-2016 Intent (J3420)By: Nia Uriostegui DO Comments: b12 1000mcglot: [id number]: 03/2018L DELT IMpt tolerated wellAD OUTSIDE PROPERTY AGENT Nia Uriostegui DO Flu Vaccine (Quadrivalent) On: 07-Nov-2016 Intent 40617Dm: Nia Uriostegui DO Comments: Lot:[id number]:07/28/17Amt:0.5mlRoute:IMSite: L DltdGiven [...] DO ELECTROCARDIOGRAM, COMPLETE On: 24-Apr-2016 Intent (ECG) (40561)By: Moody MCFARLAND, Comments: sinus ana no acute chg Nia Reed DO Aerosol Treatment (47496)By: On: 27-Feb-2016 Intent Balbir Cramer MD Solu- Medrol Injection, 125mg On: 27-Feb-2016 Intent (J2930)By: Balbir Cramer MD Comments: lot [id number] 07/20185718815 mgleft gmIMas, OUTSIDE PROPERTY AGENT Pulse Oximetry (84302)By: Bela On: 16-Jan-2016 Intent Balbir ROSAS Aerosol Treatment (29486)By: On: 16-Jan-2016 Intent Balbir Cramer MD Solu- Medrol Injection, 125mg On: 16-Jan-2016 Intent (J2930)By: Balbir Cramer MD Comments: Lot:[id number]:06/28Dose:125mgRoute:imSite:r hipGiven By:SASKIA signed CHEST XRAY, PA & LATERAL On: 16-Jan-2016 Intent (25826)By: Balbir Cramer MD Comments: ?PNA CAROTID ULTRASOUND (35180)By: On: 16-Jan-2016 Intent Balbir Cramer MD DEXA SCAN AXIAL SKELETON On: 16-Jan-2016 Intent (29048)By: Balbir Cramer MD MAMMOGRAM, SCREENING, BOTH On: 16-Jan-2016 Intent BREAST (39786)By: Balbir Cramer MD B 12 Injection, 1000 mcg On: 16-Jan-2016 Intent (J3420)By: Balbir Cramer MD Comments: lot: [id number]: ite/route: L del/IMamt: 1mLVIS signed when applicableCheMONSTER angeles B 12 Injection, 1000 mcg On: 11-Oct-2015 Intent (J3420)By: Balbir Cramer MD Flu Vaccine (Quadrivalent) On: 11-Oct-2015 Intent 36527Wg: Balbir Cramer MD Comments: Lot #[id number]/30/17ite-L dltd, IMDose prefilled syringegiven by:MARGRET, MONSTERVIS and ABN signed B 12 Injection, 1000 mcg On: 22-May-2015 Intent (J3420)By: Maylin Melendez DO B 12 Injection, 1000 mcg On: 17-Mar-2015 Intent (J3420)By: Maylin Melendez DO Comments: lot: [id number]: 10/27site/route: L del/IMamt: 1mLVIS signed when applicableMONSTER Molina PNEUM VAC ADLT/IMUMNOSPR, On: 30-Dec-2014 Intent SBC/INTRM (58675)By: Al MCFARLAND, Comments: PNUEMOlot:[id number]:1*13*17site:Rt deltoidroute:IMdose:.5mlDEMICK, SMA Maylin A B 12 Injection, 1000 mcg On: 30-Dec-2014 Intent (J3420)By: Maylin Melendez DO Comments: B12lot:[id number]:05/27site: LT deltoidROute: IMdose:1ml ADMINISTRATION OF INFLUENZA On: 21-Oct-2014 Intent VIRUS VACCINE (G0008)By: Maylin Melendez DO FLU VAC, SPLIT, >3 YEARS, On: 21-Oct-2014 Intent INTRAMUSC (93894)By: Al MCFALRAND, Comments: lot: [id number]: 08/10/15ite/route: L del/IMamt: 1mLVIS signed when applicableCheMONSTER angeles Maylin A MAMMOGRAM, SCREENING, BOTH On: 05-Oct-2014 Intent BREAST (08513)By: Maylin Melendez DO Cartoid DopplerBy: Al MCFARLAND, On: 05-Oct-2014 Intent Maylin A B 12 Injection, 1000 mcg On: 05-Oct-2014 Intent (J3420)By: Maylin Melendez DO Comments: Lot:[id number]:02*2016Route:IMSite:R deltoidDose: 1 mLgiven by: Adalgisa Sexton CMA B 12 Injection, 1000 mcg On: 01-Sep-2014 Intent (J3420)By: Adalgisa Sexton Comments: Lot:[id number]:11Route:IMSite:R deltoidDose: 1 mLgiven by: Adalgisa Sexton CMA B 12 Injection, 1000 mcg On: 26-May-2014 Intent (J3420)By: Adalgisa Sexton Comments: lot:[id number]:04/25route:IMdose:1MLSite:R deltoidgiven by: ANS B 12 Injection, 1000 mcg On: 11-Apr-2014 Intent (J3420)By: Kaci Gomez LPN Comments: lot: [id number]: 11/25Dose: 1,000 mcgSite: l dltdLocation; IMby: Solu -Medrol Injection, 125 mg On: 22-Feb-2014 Intent (J2930)By: Maylin Melendez DO Comments: [id number] 6.24193 mgleft KASIA Love Solu -Medrol Injection, 125 mg On: 31-Jan-2014 Intent (J2930)By: Sherrie Amor CNP Comments: lot [id number] 06/2016location R hiproute imgiven by - msmith VIS and/or ABN signed B 12 Injection, 1000 mcg On: 21-Jan-2014 Intent (J3420)By: Maylin Melendez DO Comments: lot [id number] 05/2015location L armroute imgiven by - msmith VIS and/or ABN signed Aerosol Treatment (25357)By: On: 14-Jan-2014 Intent Sherrie Amor CNP Radiology - ChestBy: Mt On: 14-Jan-2014 Intent Sherrie OJEDA Comments: stat call results to Dr Uriostegui is personal care aide EKG (79784)By: Mt OJEDA, On: 14-Jan-2014 Intent Sherrie Beck Comments: looks same as before No new ST -t wave changes ADMINISTRATION OF INFLUENZA On: 29-Nov-2013 Intent VIRUS VACCINE (G0008)By: Al Comments: Lot #[id number]-L dltd, IMDose prefilled syringegiven by:ms, MALUIS ANGEL and ABN signed Maylin MCFARLAND A FLU VAC, SPLIT, >3 YEARS, On: 29-Nov-2013 Intent INTRAMUSC (90755)By: Al MCFARLAND Maylin A B 12 Injection, 1000 mcg On: 29-Nov-2013 Intent (J3420)By: Al MCFARLAND Maylin A Comments: given, R dltd, Im - see flowsheet for lot and exp Radiology - Knee - Left - On: 06-Sep-2013 Intent Weight BearingBy: Al MCFARLAND Maylin A MAMMOGRAM, SCREENING, BOTH On: 18-Aug-2013 Intent BREAST (06737)By: Al DO Maylin A B 12 Injection, 1000 mcg On: 18-Aug-2013 Intent (J3420)By: Al MCFARLAND Maylin A Aerosol Treatment (05613)By: On: 16-Jul-2013 Intent Sherrie Amor CNP Aerosol Treatment (79169)By: On: 09-Jul-2013 Intent Sherrie Amor CNP Radiology - ChestBy: Ciesa On: 09-Jul-2013 Intent Sherrie OJEDA Eprescribed prescriptions On: 09-Jul-2013 Intent (G8553)By: Sherrie Amor CNP B 12 Injection, 1000 mcg On: 24-Jun-2013 Intent (J3420)By: Visit, Nurse Eprescribed prescriptions On: 24-Jun-2013 Intent (G8553)By: Visit, Nurse Solu- Medrol Injection, 125mg On: 21-Jun-2013 Intent (J2930)By: Sherrie Amor CNP Cartoid DopplerBy: Al MCFARLAND, On: 05-May-2013 Intent Maylin A Eprescribed prescriptions On: 05-May-2013 Intent (G8553)By: Layton Melendez DOa A B 12 Injection, 1000 mcg On: 27-Apr-2013 Intent (J3420)By: Visit, Nurse Comments: Lot:[id number]:12/25Dose:1mlRoute:IMSite:l armGiven By:SASKIA signed Aerosol Treatment (65013)By: On: 17-Feb-2013 Intent Nia Uriostegui DO, DO, Comments: more q/e less cough -- ok to use rescue inhaler prn not moer than bid with a fib -- if needs ansd worsen go to ER-- pulse reguar after treatment Nia Spirometry (74829)By: Moody On: 17-Feb-2013 Nia Amaya DO, DO, Comments: mild restriction -- stable Nia Solu- Medrol Injection, 125mg On: 17-Feb-2013 Intent (J2930)By: Nia Uriostegui DO Comments: lot: [id number]: ite/route: RGM/IMamt: 2mLVIS signed when applicableMONSTER Molina DO, Kathleen Eprescribed prescriptions On: 17-Feb-2013 Intent (G8553)By: Nia Uriostegui DO, DO, Kathleen EKG (98870)By: Maylin Melendez DO On: 12-Jan-2013 Intent A Comments: ekg showed normal sinus rhythym, left axis, no acute st/t wave changes Pelvic and Breast, Medicare On: 12-Jan-2013 Intent (G0101)By: Natalya Kohli Eprescribed prescriptions On: 18-Dec-2012 Intent (G8553)By: Maylin Melendez DO A FLU VAC, SPLIT, >3 YEARS, On: 18-Dec-2012 Intent INTRAMUSC (40523)By: Seun, Comments: Lot #:[id number] date:mount given:0.5mlRoute: IMSite given: L dltdVIS and ABN signedGiven by: CHILO Gillespie ADMINISTRATION OF INFLUENZA On: 18-Dec-2012 Intent VIRUS VACCINE (G0008)By: Natalya Kohli B 12 Injection, 1000 mcg On: 01-Dec-2012 Intent (J3420)By: Tracy Barnes Comments: Lot:[id number]:09/24Dose:1mlRoute:IMSite:l armGiven By:SASKIA signed Eprescribed prescriptions On: 02-Nov-2012 Intent (G8553)By: Sherrie Amor CNP Radiology - Foot - RightBy: On: 02-Nov-2012 Intent Sherrie Amor CNP B 12 Injection, 1000 mcg On: 19-Oct-2012 Intent (J3420)By: Tracy Barnes Comments: lot: [id number]: 09/23site/route: L deltoid/IMamt: 1mLVIS signed when applicableTracy EARTH MOVING TECHNICIAN B 12 Injection, 1000 mcg On: 31-Aug-2012 Intent (J3420)By: Maylin Melendez DO Comments: Lot: [id number]: Bor30Ycv: 1000mcg/1mlRoute: IMSite: L deltoidGiven by: KASIA Samson Eprescribed prescriptions On: 31-Aug-2012 Intent (G8553)By: Natalya Kohli Nuclear Medicine - Other - On: 18-Aug-2012 Intent Vertebral AssessmentBy: Al Comments: Maylin Vogel DO DXA, BONE DENSITY, AXIAL On: 22-Jun-2012 Intent SKELETON (58344)By: Maylin Melendez DO MAMMOGRAM, SCREENING, BOTH On: 22-Jun-2012 Intent BREASTS (49640)By: Maylin Melendez DO B 12 Injection, 1000 mcg On: 15-Jun-2012 Intent (J3420)By: Tracy Barnes Comments: lot: [id number]: 12/24site/route: R deltoid/IMamt: 1,000mcgVIS signed when applicableChebridgette EARTH MOVING TECHNICIAN Eprescribed prescriptions On: 17-Apr-2012 Intent (G8553)By: Natalya Kohli B 12 Injection, 1000 mcg On: 13-Apr-2012 Intent (J3420)By: Ramona Vásquez Comments: Lot:[id number]:01/23Dose:1mlRoute:IMSite:r armGiven By:SASKIA signed Eprescribed prescriptions On: 27-Mar-2012 Intent (G8553)By: Susie Lopez LPN FLU VAC, SPLIT, >3 YEARS, On: 17-Jan-2012 Intent INTRAMUSC (43303)By: Al MCFARLAND, Comments: Lot #[id number]/13Site-left deltoidgiven by: KASIA Fajardo ADMINISTRATION OF INFLUENZA On: 17-Jan-2012 Intent VIRUS VACCINE (G0008)By: Maylin Melendez DO Eprescribed prescriptions On: 17-Jan-2012 Intent (G8553)By: Natalya Kohli B 12 Injection, 1000 mcg On: 31-Dec-2011 Intent (J3420)By: Maylin Melendez DO Comments: Lot:[id number]:Dose:1mlRoute:IMSite:L armGiven By:JACQUIE Aerosol Treatment (85137)By: On: 24-Dec-2011 Intent Sherrie Amor CNP B 12 Injection, 1000 mcg On: 29-Oct-2011 Intent (J3420)By: Natalya Kohli Comments: Lot #[id number]-R arm, IMDose-prefilled syringegiven by:KASIA MalloyVIS signed CT - ChestBy: Maylin Melendez DO On: 24-Sep-[address] - ChestBy: Maylin Melendez DO On: 24-Sep-2011 Intent Holter Monitor 24 hrsBy: Al On: 17-Sep-2011 Maylin Amaya DO Comments: please do this week and copy to dr clements EKG (73807)By: Maylin Melendez DO On: 17-Sep-2011 Intent A [...] Thao RN Comments: Lot #: [id number] date: 12/23Amount given: 1 mlRoute: IMSite given: right deltoidGiven by: GEOFF Salcido MAMMOGRAM, SCREENING, BOTH On: 14-May-2011 Intent BREASTS ([id number])By: Maylin Melendez DO A CT - ChestBy: Fast DO Maylin A On: 14-May-2011 Intent Comments: due next month B 12 Injection, 1000 mcg On: 16-Apr-2011 Intent (J3420)By: Ericka Thao RN Comments: Lot #: [id number] date: 09/22Amount given: [...] ([id number])By: Maylin Melendez DO CT - ChestBy: Layton Melendez DOa A On: 14-Jan-2011 Intent B 12 Injection, 1000 mcg On: 21-Nov-2010 Intent (J3420)By: Carol Reina LPN Comments: Lot #[id number]-11.21Site-Right dltd, IMDose 1mlgiven by:KASIA Medina Solu -Medrol Injection, 125 mg On: 24-Aug-2010 Intent (J2930)By: Sherrie Amor CNP Comments: Lot #[id number]-R hip, IMDose 125mg, 2 mlgiven by: Aerosol Treatment ([id number])By: On: 24-Aug-2010 Intent Sherrie Amor CNP Pulse Oximetry ([id number])By: Keesha On: 24-Aug-2010 Intent Ericka TELLEZ Spirometry (77276)By: Al On: 03-Aug-2010 Intent Maylin MCFARLAND Comments: good efffort and curve normal EKG ([id number])By: Maylin Melendez DO On: 03-Aug-2010 Intent A Comments: ekg showed normal sinus rhythym, normal axis, no acute st/t wave changes poor r wave progression Radiology - Chest- PA and On: 03-Aug-2010 Intent LatBy: Maylin Melendez DO B 12 Injection, 1000 mcg On: 11-Jul-2010 Intent (J3420)By: Carol Stark LPN Comments: Lot #[id number]/11Site-left deltoidDose- 1 mlgiven by: Emili Stark LPN TD Injection , IM (57204)By: On: 20-Apr-2010 Intent Maylin Melendez DO Comments: Lot #[id number]-L dtd, IMDose prefilledgiven by:MARTITA B 12 Injection, 1000 mcg On: 04-Apr-2010 Intent (J3420)By: Carol Stark LPN Comments: Lot #[id number]/12Site-left deltoidDose- 1 mlgiven by:[facility] B 12 Injection, 1000 mcg On: 16-Jan-2010 Intent (J3420)By: Carol Reina LPN Comments: Lot #[id number]-R naeEkyn4xxjvdth by: B 12 Injection, 1000 mcg On: 12-Dec-2009 Intent (J3420)By: Carol Stark LPN Comments: Lot #[id number]-/12Site-left deltoidDose- 1 mlgiven by:[facility] FLU VAC, SPLIT, >3 YEARS, On: 14-Nov-2009 Intent INTRAMUSC (15577)By: Natalya Kohli ADMINISTRATION OF INFLUENZA On: 14-Nov-2009 Intent VIRUS VACCINE (G0008)By: Comments: Lot #: [id number] date:mount given: 0.5 mlRoute: IMSite given: left deltoid Given by: GEOFF Hilton Jennifer DXA, BONE DENSITY, AXIAL On: 01-Nov-2009 Intent SKELETON ([id number])By: Maylin Melendez DO MAMMOGRAM, SCREENING, BOTH On: 01-Nov-2009 Intent BREASTS ([id number])By: Maylin Melendez DO ADMINISTRATION OF PNEUMOCOCCAL On: 01-Nov-2009 Intent VACCINE (G0009)By: Maylin Melendez DO PNEUM VAC ADLT/IMUMNOSPR, On: 01-Nov-2009 Intent SBC/INTRM ([id number])By: Maylin Melendez DO A B 12 Injection, 1000 mcg On: 01-Nov-2009 Intent (J3420)By: Carol Reina LPN Comments: Lot #[id number]/21Site-L dltdDose 30m/mlgiven by:KASIA GONZALES Pneumovax (25137)By: Nuno On: 01-Nov-2009 Intent Carol PEDROZA Comments: Lot #[id number] 2010Site-R dltdDose 0.5mlgiven by:KASIA ANDERS B 12 Injection, 1000 mcg On: 25-Aug-2009 Intent (J3420)By: Carol Stark LPN Comments: Lot #[id number]-/Site-left deltoidDose- 1 mlgiven by:MAYRA B 12 Injection, 1000 mcg On: 13-Jul-2009 Intent (J3420)By: Monik Rushing Comments: Lot #[id number]/2011Site-left csirseoIifx1003wxv/1mlgiven by Diana Rushing LPN CT - ChestBy: Maylin Melendez DO A On: 05-Jun-2009 Intent Spirometry ([id number])By: On: 05-Jun-2009 Intent Natalya Kohli Comments: goo deffort and curve mild small airway obst B 12 Injection, 1000 mcg On: 24-May-2009 Intent (J3420)By: aCrol Stark LPN Comments: Lot #[id number]-/11Site-right deltoidDose- 1 mlgiven by:MAYRA Radiology - Knee - Right - On: 23-Dec-2008 Intent Weight BearingBy: Al MCFARLAND, Maylin A B 12 Injection, 1000 mcg On: 23-Dec-2008 Intent (J3420)By: Natalya Kohli Comments: Lot #:[id number] date:mount given:1mlRoute: IMSite given:left deltoidGiven by: CHILO Gillespie Aerosol Treatment (09500)By: On: 08-Nov-2008 Intent Natalya Carter Comments: post treatment breath sounds clear bilat. pt. states feels breathing better. Pulse Oximetry ([id number])By: On: 08-Nov-2008 Intent Natalya Carter Comments: 95% CT - ChestBy: Maylin Melendez DO On: 03-Oct-2008 Intent Comments: november Ultrasound - GallbladderBy: On: 15-Sep-2008 Intent [facility] Sherrie Beck Ultrasound - Abdomen Complete On: 15-Sep-2008 Intent & PelvisBy: [facility] Sherrie Beck B 12 Injection, 1000 mcg On: 07-Sep-2008 Intent (J3420)By: Mya Barahona Comments: lot #:[id number]:04/2010site:right deltoidGiven by CHILO Roque B 12 Injection, 1000 mcg On: 02-Aug-2008 Intent (J3420)By: Maylin Melendez DO Comments: 1ml given im lt mamie lot [id number] exp 12-20 B 12 Injection, 1000 mcg On: 05-Jul-2008 Intent (J3420)By: Maylin Melendez DO Comments: Lot #[id number]/2009Site-left soqyeuyFtcu4696zux/1mlgiven by Diana Rushing LPN CT - Brain/HeadBy: Al MCFARLAND, On: 31-May-2008 Intent Maylin A EKG ([id number])By: Maylin Melendez DO On: 10-May-2008 Intent A Comments: ekg showed normal sinus rhythym, leftaxis, nonspecific t changges unchanged fromprevious Echo CompleteBy: Al MCFARLAND, On: 10-May-2008 Intent Maylin Sherman PFT - CompleteBy: Al MCFARLAND, On: 10-May-2008 Intent Maylin Sherman Pulse Oximetry ([id number])By: Al On: 10-May-2008 Intent Maylin MCFARLAND Comments: 95 Spirometry (55368)By: Al On: 10-May-2008 Intent Maylin MCFARLAND Comments: good effort and curve mild restriction CT - ChestBy: Maylin Melendez DO On: 10-May-2008 Intent Bio Z (15277)By: Fast DO, On: 10-May-2008 Intent Maylin A Comments: karin galvez good INJECTION, VITAMIN B-12 On: 10-May-2008 Intent [...] Intent (J3420)By: Monik Rushing Comments: Lot #[id number]-5/10Site-left qyzpjnnFbev0jwwcsbk by Diana Rushing LPN INJECTION, VITAMIN B-12 On: 03-Dec-2007 Intent CYANOCOBALAMIN, UP TO 1000 Comments: injection given in left deltoid, Ptolerated welllo # [id number] 5/10 MCG (Special Coverage Instructions Apply. See CIM: 45-4 and MCM: 2048) (J3420)By: Irais Monreal B 12 Injection, 1000 mcg On: 26-Nov-2007 Intent (J3420)By: Monik Rushing Comments: Lot #[id number]-5/10Site-left fqryosmIlhz8sixinzw by Diana Rushing LPN INJECTION, VITAMIN B-12 On: 19-Nov-2007 Intent CYANOCOBALAMIN, UP TO 1000 MCG (Special Coverage Instructions Apply. See CIM: 45-4 and MCM: 2048) (J3420)By: Roberto Muhammad LPNsie INJECTION, VITAMIN B-12 On: 12-Nov-2007 Intent CYANOCOBALAMIN, UP TO 1000 MCG (Special Coverage Instructions Apply. See CIM: 45-4 and [facility]: 2049) (J3420)By: Adriane Muhammad LPN 12 Injection, 1000 mcg On: 05-Nov-2007 Intent (J3420)By: Adriane Muhammad LPN Cartoid DopplerBy: Al MCFARLAND, On: 30-Oct-2007 Intent Maylin A Spirometry ([id number])By: Al On: 30-Oct-2007 Intent DO Amylin A Comments: good effort and curve- some small airway decrease Radiology - Chest- PA and On: 30-Oct-2007 Intent LatBy: Al MCFARLAND Maylin A DXA, BONE DENSITY, AXIAL On: 24-Jul-2007 Intent SKELETON (72151)By: Al MCFARLAND, Comments: postmenopausal without estrogen Maylin A MAMMOGRAM, SCREENING, BOTH On: 24-Jul-2007 Intent BREASTS ([id number])By: Maylin Melendez DO Radiology - Knee - Right - On: 15-Jun-2007 Intent Weight BearingBy: Al MCFARLAND, Comments: call results Maylin Sherman CT - ChestBy: Al MCFARLAND Maylin A On: 03-Apr-[address] - ChestBy: Al MCFARLAND Maylin A On: 15-Aug-2006 Intent Spirometry ([id number])By: Al On: 15-Aug-2006 Intent Maylin MCFARLAND A Comments: good effort and curve- mild obstruction EKG ([id number])By: Seun, On: 15-Aug-2006 Intent Natalya Comments: ekg showed normal sinus rhythym, normal axis, no acute st/t wave changes Radiology - ChestBy: LEE On: 25-Jun-2006 Intent PAMELA OJEDA Comments: PA and LAT Solu- Medrol Injection, 125mg On: 25-Jun-2006 Intent (J2930)By: PAMELA HOWARD CNP Pulse Oximetry (73103)By: On: 25-Jun-2006 Intent PAMELA HOWARD CNP Comments: pt tolerated well. ins waiver signed Aerosol Treatment (48913)By: On: 25-Jun-2006 Intent PAMELA HOWARD CNP Comments: ins wwaiver signed, pt tolerated well Spirometry (96036)By: Al On: 14-May-2006 Intent Maylin MCFARLAND Comments: good effort and curve-mild obstruction ADMINISTRATION OF PNEUMOCOCCAL On: 11-Feb-2006 Intent VACCINE (G0009)By: ULYSSES Quiñones PNEUM VAC ADLT/IMUMNOSPR, On: 11-Feb-2006 Intent SBC/INTRM (75755)By: ULYSSES Quiñones Bio Z ([id number])By: Al MCFARLAND, On: 11-Feb-2006 Intent Maylin A Comments: bp was 132/65- cardiac output, svr and thoracic fluid content is normal- will hold on med changes PNEUM VAC ADLT/IMUMNOSPR, On: 11-Feb-2006 Intent SBC/INTRM ([id number])By: Maylin Melendez DO ADMINISTRATION OF PNEUMOCOCCAL On: 11-Feb-2006 Intent VACCINE (G0009)By: Maylin Melendez DO MAMMOGRAM, SCREENING, BOTH On: 16-Oct-2005 Intent BREASTS ([id number])By: Maylin Melendez DO Planned Medications INJECTION, METHYLPREDNISOLONE SODIUM SUCCINATE, UP TO 125 MG Ordered: 17-Feb-2013 Pending Nia rUiostegui DO, DO, Kathleen INJECTION, METHYLPREDNISOLONE SODIUM SUCCINATE, UP TO 125 MG Ordered: 31-Jan-2014 Pending Sherrie Amor CNP INJECTION, METHYLPREDNISOLONE SODIUM SUCCINATE, UP TO 125 MG Ordered: 24-Aug-2010 Pending Sherrie Amor CNP INJECTION, METHYLPREDNISOLONE SODIUM SUCCINATE, UP TO 125 MG Ordered: 22-Feb-2014 Pending Maylin Melendez DO INJECTION, METHYLPREDNISOLONE SODIUM SUCCINATE, UP TO 125 MG Ordered: 27-Feb-2016 Pending Balbir Cramer MD INJECTION, METHYLPREDNISOLONE SODIUM SUCCINATE, UP TO 125 MG Ordered: 16-Jan-2016 Pending Balbir Cramer MD INJECTION, METHYLPREDNISOLONE SODIUM SUCCINATE, UP TO 125 MG Ordered: 21-Jun-2013 Pending Sherrie Amor CNP Vitamin B-12 1000 MCG/ML Injection Solution Ordered: 12-Dec-2009 Pending Carol Stark LPN Vitamin B-12 1000 MCG/ML Injection Solution Ordered: 21-Jan-2014 Pending Maylin Melendez DO Vitamin B-12 1000 MCG/ML Injection Solution Ordered: [...] MCG/ML Injection Solution Ordered: 16-Jan-2010 Pending Long OUTSIDE PROPERTY AGENT, Carol L Vitamin B-12 1000 MCG/ML Injection Solution Ordered: 04-Apr-2010 Pending [place] OUTSIDE PROPERTY AGENT, Carol Vitamin B-12 1000 MCG/ML Injection Solution Ordered: 11-Jul-2010 Pending Hluszti OUTSIDE PROPERTY AGENT, Carol Vitamin B-12 1000 MCG/ML Injection Solution Ordered: 21-Nov-2010 Pending Long OUTSIDE PROPERTY AGENT, Carol L Vitamin B-12 1000 MCG/ML Injection Solution Ordered: 14-Jan-2011 Pending Tiffany Kohlinifer Vitamin B-12 1000 MCG/ML Injection Solution Ordered: 15-Feb-2011 Pending Nuno CRUZN, Carol L Vitamin B-12 1000 MCG/ML Injection Solution Ordered: 18-Mar-2011 Pending [place] CRUZN, Carol Vitamin B-12 1000 MCG/ML Injection Solution Ordered: 16-Apr-2011 Pending Keesha RNEricka Vitamin B-12 1000 MCG/ML Injection Solution Ordered: 23-May-2011 Pending Mast RNEricka Vitamin B-12 1000 MCG/ML Injection Solution Ordered: 22-Jul-2011 Pending Hlusadriana OUTSIDE PROPERTY AGENT, Carol Vitamin B-12 1000 MCG/ML Injection Solution Ordered: 17-Sep-2011 Pending Seun Natalya Vitamin B-12 1000 MCG/ML Injection Solution Ordered: 29-Oct-2011 Pending Seun Natalya Vitamin B-12 1000 MCG/ML Injection Solution Ordered: 31-Dec-2011 Pending Al DO, Maylin A Vitamin B-12 1000 MCG/ML Injection Solution Ordered: 13-Apr-2012 Pending Ramona Vásquez Vitamin B-12 1000 MCG/ML Injection Solution Ordered: 15-Jun-2012 Pending Manjovank, Tracy Vitamin B-12 1000 MCG/ML Injection Solution Ordered: 31-Aug-2012 Pending Al DO, Maylin A Vitamin B-12 [...] Reason for ER visit: note: (afib in [facility] from sat till wed). The [...] for chronic medical issues: she is seeing [facility] because having issues with bowels again- -and [...] diarrhea with ibs so going to see [facility] for new med - had neuro [...] willing to try altenrative but we disussed victoza wants to stay in same class- has [...] SOB. 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 The patient has noticed nothing from the geriatic depression scale. Other providers contributing to the patient's care are ethnoarchaeology professor, gastrologist an d other: (neurologist). 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 The patient feels well with no complaints [...] first time happened while family there at [place] while family eating dinner - other time happened when her friend was talking about his open heart surgery - feels like may be panic or anxiety- she was at ethnoarchaeology professor a few mos ago and he had [...] Medicine End: 06-Sep-2005 6:51 Payers MedicareRural Carrier BenefitCignViv sherman guarantor
--- OUTSIDE RECORDS SUMMARY | 2018-02-18 04:41 | XMS RPT_ITS | Continuity of Care Document ---
:1940 Author Organization [facility] Address [address] [place] [address] Phone Care Team Providers Name Role Phone Nia Uriostegui DO Unavailable Je Rodriguez Unavailable Dr. 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 AMLODIPINE BESYLATE, 5MG (Oral Tablet) 1 [...] : 17-Apr-2012 End : 17-Apr-2012 Discontinued ERGOCALCIFEROL, 52363ZJFV (Oral Capsule) 1 (one) Capsule q week [...] switch to her tradjenta VITAMIN D (ERGOCALCIFEROL), 08692UJUM (Oral Capsule) 1 Capsule twice a week [...] [facility] Status: Inactive as of 24-Apr-2016 Unspecified [...] US, Limited Result: Comments: See Note; NOTES: [facility] Cardiovascular Services [address] [place] [address] Art Duplex US Unilat Lower Ext 12/12/17 1304 MR#: [id number] Acct: [id number] Name: COMFORT OLSON Rep #: [id number] : 1940 77 From: Je Ceron MD Attending Dr: Je Ceron MD Status: REG CLI Ordering Dr: Je Ceron MD Date: 12/12/17 Location: [facility] Sex: F C Admitted: Reason For Study: RT Groin pseudoanerysm thrombin injection Right Velocities Rt groin pseudoaneurysm successfully thrombosed s/p thrombin injection. Normal color flow and doppler signal DUMPER BAILER OPERATOR and FV. P rocedure Exam performed in department. Interpretation Summary Successful thrombosis right femoral pseudoaneurysm __ Ordering Physician: Je Ceron Performed By: Sanaz Sheth RVT 12/12/17 1404 Date Je Ceron MD CC: Nia Uriostegui DO; Je Ceron MD Date Dictated: 12/12/17 1304 Date Transcribed: 12/12/17 1404 Pearl Glue Drier: Signed 12-Dec-2017 Operative Report Result: Comments: See Note; NOTES: [facility] Medical Records Department [address] [place] [address] Operative Report 12/12/17 1359 MR#: [id number] Acct: [id number] Name: COMFORT OLSON Rep #: [id number] : 1940 77 From: Je Ceron MD [...] Visit Report Result: Comments: See Note; NOTES: 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 Greene. Patient is about 10 days out. She complained of swelling and pain. She presented to Dr. Richmond's office yesterday. A ultrasound was obtained. This demonstrates a 2 cm pseudoaneurysm in the [facility] groin but there is additional [...] Visit Report Result: Comments: See Note; NOTES: [place] [id number] [place] [address] OFFICE VISIT Date of Service: 12/11/17 MR#: [id number] Acct: [id number] Patient: COMFORT OLSON Rep #: [id number] : 1940 Provider: Jonel Rashid MD Age/Sex: 77/F [place] [facility] [place] Status: Signed Intake Intake Visit [...] PO BID 08/24/17 [History Confirmed 10/31/17] Methscopolamine Hollister 5 mg PO BID 08/24/17 [History Confirmed [...] -MATTIE Extrem Result: Comments: See Note; NOTES: [facility] Cardiovascular Services [address] [place] [address] Art Duplex US Bilat Lower Ext 12/11/17 1408 MR#: [id number] Acct: [id number] Name: COMFORT OLSON Rep #: [id number] : 1940 77 From: Je Ceron MD Attending Dr: Annemarie Parsons Status: REG CLI Ordering Dr: Jonel Rashid MD Date: 12/11/17 Location: [facility] Sex: F C Admitted: Reason For Study: Rt groin pain/ecchymosis - Right Velocities Left Velocities RT DUMPER BAILER OPERATOR - 1.2 x 1.2 cm with a velocity of 159.0 LT DUMPER BAILER OPERATOR - .88 x .83 cm with a [...] Parsons Performed By: Sanaz Sheth RVT 12/11/17 4539 Date Je Ceron MD CC: Jonel Rashid MD; Nia Uriostegui DO; [facility] des Parsons Date Dictated: 12/11/17 1408 Date Transcribed: 12/11/171818 Pearl Glue Drier: Signed 04-Nov-2017 Operative Report Result: Comments: See Note; NOTES: [facility] Medical Records Department [address] [place] [address] Operative Report 11/03/17 1228 MR#: [id number] Acct: [id number] Name: COMFORT OLSON Rep #: [id number] : 1940 76 From: Patrick Ellsworth MD PCP: Nia Uriostegui DO Status: DEP [facility] [place] Location: [facility] Problem List (1) New onset atrial flutter Status: Acute (2) Atherosclerotic heart disease of [place] coronary artery without angina pectoris Status: Chronic Qualifiers: [place] vs. transplanted heart: [place] heart Qualified Code(s): I25.10 - Atherosclerotic heart disease of [place] nitin nary artery without angina pectoris [...] is a 76-year-old female who presented to [facility] for an elective outpat ient cardioversion [...] Visit 9xxxx: Other Procedure See Report - [id number] 11/04/17 0525 <Electronically signed by Patrick Ellsworth MD> Date Patrick Ellsworth MD CC: Patrick Ellsworth MD; Jonel Rashid MD; Nia Uriostegui DO Signed 03-Nov-2017 Operative Report Result: Comments: See Note; NOTES: [facility] Medical Records Department [address] [place] [address] Operative Report 11/03/174 MR#: [id number] Acct: [id number] Name: COMFORT OLSON Rep #: [id number] : 1940 76 From: Jonel Rashid MD PCP: Nia Uriostegui DO Status: REG SDC Y Location: [facility] Operative Report Date of Procedure: 11/03/17 [...] Rashid MD> Date Jonel Rashid MD CC: Joenl Rashid MD; Nia Uriostegui DO Signed 08-Oct-2017 Cardiology Visit Report Result: Comments: See Note; NOTES: [facility] [address] [place] [address] OFFICE VISIT Date of Service: 10/08/17 MR#: [id number] Acct: [id number] Name: COMFORT OLSON Re p #: [id number] : 1940 Provider: Jonel Rashid MD Age/Sex: 76/F [place] [facility] [place] Status: Signed HPI HPI Chief [...] 70 Intake Visit Reasons: ER 8-20 per BENCH ASSEMBLY INSPECTOR Allergies No Known Allergies Allergy (Verified 10/08/17 [...] PO BID 08/24/17 [History Confirmed 10/05/17] Methscopolamine Hollister 5 mg P O BID 08/24/17 [History [...] atrial fibrillation (Chronic) Atherosclerotic heart disease of [place] coronary artery without angina pectoris (Chronic) [...] bundle branch block. 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 (etcher photoengraving) Coding Level of Care Code Off vis,est,level [...] Lead Electrocardiogram Result: Comments: See Note; NOTES: [facility] Cardiovascular Services [address] [place] [address] 12 Lead EKG 10/05/17 0149 MR#: [id number] Acct: [id number] Name: COMFORT OLSON Rep # : [id number] : 1940 76 From: Jonel Rashid MD [...] ECG Confirmed by JONEL RASHID MD ([id number]), development editor AMIRA CASTRO ([id number]) on 10/07/2017 2:45:19 PM Referred By: Jonel Rashid Confirmed By:JONEL RASHID MD 10/07/17 0358 Date _ Jonel Rashid MD CC: Emery Allen MD; Nia Uriostegui DO Signed 07-Oct-2017 12 Lead Electrocardiogram Result: Comments: See Note; NOTES: [facility] Cardiovascular Services [address] [place] [address] 12 Lead EKG 10/05/17 0333 MR#: [id number] Acct: [id number] Name: COMFORT OLSON Rep # : [id number] : 1940 76 From: Jonel Rashid MD [...] ECG Confirmed by JONEL RASHID MD ([id number]), development editor AMIRA CASTRO ([id number]) on 10/07/2017 2:42:56 PM Referred By: Kathleen Rashid Confirmed By:JONEL RASHID MD 10/07/17 1442 Date Jonel Rashid MD CC: Emery Allen MD; Nia Uriostegui DO Signed 05-Oct-2017 Discharge Instruction Result: Comments: See Note; NOTES: [facility] Medical Records Department [address] [place] [address] Discharge Instruction 10/05/17 0440 MR#: [id number] Acct: [id number] Name: Liyah OLSON Rep #: [id number] : 1940 76 From: Emery Allen MD PCP: Nia Uriostegui DO Status: DEP ER ED Disposition - Plan for ED Patient: Chief Complaint: Palpitations Instructions: ED Paroxysmal Atrial Flutter Referrals: Jonel aRshid MD [STAFF PHYSICIAN] - Additional Instructions: Increase [...] Primary Care Provi latrell. Call [facility] ([phone]) or report to the closest Emergency Room. Call 911 if necessary. 10/05/17 0528 <Electronically signed by Emery Allen MD> Date ____ Emery Allen MD Cosigner Signature (If Indicated): Date CC: Nia Uriostegui DO 05-Oct-2017 Emergency Department Summary Result: Comments: See Note; NOTES: [facility] Medical Records Department [address] [place] [address] Emergency Department Summary 10/05/17 0435 MR#: [id number] Acct: [id number] Name: COMFORT OLSON Rep #: [id number] : 1940 76 From: Emery Allen MD [...] flutter This not e was generated with [employer] dictation software. It may contain incorrect words, [...] your Primary Care Provider. Call [facility] ([phone]) or report to the closest Emergency Room. Call 911 if necessary. 10/05/17 0528 &#60 ;Electronically signed by Emery Allen MD> Date Emery Allen MD Cosigner Signature (If Indicated): Date CC: Nia Uriostegui DO 05-Oct-2017 Chest 1 View (Portable) Result: Comments: See Note; NOTES: [facility] Imaging Services [address] [place] [address] Chest 1 View (Portable) MR#: [id number] Acct: [id number] Name: COMFORT OLSON Rep #: [id number] : 1940 F 76 From: hCris Dwyer MD PCP: Nia Uriostegui DO Status: REG ER Study: Chest 1 View (Portable) Date of Exam: 10/05/17 Exam# [id number] Ordering Dr: Emery Allen MD STUDY: X-R [...] of the upper abdomen. ORDER # : [id number] RAD/Chest 1 View (Portable) IMPRESSION: Mild cardiomegaly. Minimal persistent left basilar atelectasis. No evidence for acute cardiopulmonary pathology. Electronically Signed: Chris Dwyer MD at 2:42 EDT , Service support , CC: Emery Allen MD; Nia Uriostegui DO Pearl Glue Drier: Signed 03-Oct-2017 12 Lead Electrocardiogram Result: Comments: See Note; NOTES: [facility] Cardiovascular Services [address] [place] [address] 12 Lead EKG 10/02/17 1353 MR#: [id number] Acct: [id number] Name: COMFORT OLSON Rep # : [id number] : 1940 76 From: Jonel Rashid MD Attending Dr: Gya ROSAS,Jonel Status: REG CLI Ordering Dr: Richard [...] ECG Confirmed by JONEL RASHID MD ([id number]), development editor AMIRA CASTRO ([id number]) on 10/03/2017 1:43:28 PM Referred By: Jonel Rashid Confirmed By:USMAN RASHID MD 10/03/17 1343 Date Jonel Rashid MD CC: JOSSELYN Lombardo; Jonel Rashid MD; Nia Uriostegui DO Signed 02-Oct-2017 Echo, Complete w/ Contrast Result: Comments: See Note; NOTES: [facility] Cardiovascular Services [address] [place] [address] Echo Complete W/ Contrast 10/02/17 1250 MR#: [id number] Acct: [id number] Name: COMFORT JONES Rep #: [id number] : 1940 76 From: Jonel Rashid MD Attending Dr: Gay ROSAS,Jonel Status: REG CLI Ordering Dr: Jonel Rashid MD Date: 10/02/17 Location: [facility] Sex: F C Admitted: [...] Date Dictated: 10/02/17 1250 Date Transcribed: 10/02/171742 Pearl Glue Drier: Signed 02-Oct-2017 12 Lead Electrocardiogram Result: Comments: See Note; NOTES: [facility] Cardiovascular Services [address] [place] [address] 12 Lead EKG 09/29/17 1035 MR#: [id number] Acct: [id number] Name: COMFORT OLSON Rep # : [id number] : 1940 76 From: Antonio Tovar MD [...] ECG Confirmed by ZARA ROSAS, ANTONIO ([id number]), development editor AMIRA CASTRO ([id number]) on 10/02/2017 1:30:21 PM Refer red By: BOZENA Confirmed By:ANTONIO TOVAR MD 10/02/17 1330 Date Antonio Tovar MD CC: Nia Uriostegui DO; Jignesh Tello MD Signed 02-Oct-2017 12 Lead Electrocardiogram Result: Comments: See Note; NOTES: [facility] Cardiovascular Services [address] [facility] [place] [address] 12 Lead EKG 09/29/17 1020 MR#: [id number] Acct: [id number] Name: COMFORT OLSON Rep # : [id number] : 1940 76 From: Antonio Tovar MD [...] Abnormal ECG Confirmed by ANTONIO TOVAR MD ([id number]), AMIRA Roldan (56) on 10/02/2017 1:27:54 PM Referred By: BOZENA Confirmed By:ANTONIO TOVAR MD 10/02/17 1327 Date Antonio Tovar MD CC: Nia Uriostegui DO; Jignesh Tello MD Signed 02-Oct-2017 12 Lead Electrocardiogram Result: Comments: See Note; NOTES: [facility] Cardiovascular Services [address] [place] [address] 12 Lead EKG 09/29/17 0905 MR#: [id number] Acct: [id number] Name: COMFORT OLSON Rep # : [id number] : 1940 76 From: Antonio Tovar MD [...] Abnormal ECG Confirmed by ANTONIO TOVAR MD ([id number]), development editor AMIRA CASTRO (56) on 10/02/2017 1:27:13 PM Referred By: BOZENA Anne d By:ANTONIO TOVAR MD 10/02/17 1327 Date Antonio Tovar MD CC: Nia Uriostegui DO; Jignesh Tello MD Signed 02-Oct-2017 12 Lead Electrocardiogram Result: Comments: See Note; NOTES: [facility] Cardiovascular Services [address] [place] [address] 12 Lead EKG 09/29/17 0926 MR#: [id number] Acct: [id number] Name: COMFORT OLSON Rep # : [id number] : 1940 76 From: Antonio Tovar MD [...] ECG Confirmed by ZARA ROSAS, ANTONIO ([id number]), development editor AMIRA CASTRO ([id number]) on 10/02/2017 1:26:27 PM Referr ed By: BOZENA Confirmed By:ANTONIO TOVAR MD 10/02/171325 Date Antonio Tovar MD CC: Nia Uriostegui DO; Jignesh Tello MD Signed 29-Sep-2017 Emergency Department Summary Result: Comments: See Note; NOTES: [facility] Medical Records Department [address] [place] [address] Emergency Department Summary 09/29/17 0912 MR#: [id number] Acct: [id number] Name: COMFORT OLSON Rep #: [id number] : 1940 76 From: Jignesh Tello MD [...] Sinus bradycardia. This note was generated with [employer] dictation software. It may contain incorrect words, [...] problems, contact your Primary Care Provider. Call [facility] ([phone]) or report to the closest Emergency Room. Call 911 if necessary. 09/29/17 7571 <Electronically si gned by Jignesh Tello MD> Date Jignesh Tello MD Cosigner Signature (If Indicated): Date CC: Nia Uriostegui DO 29-Sep-2017 Chest 1 View (Portable) Result: Comments: See Note; NOTES: [facility] Imaging Services [address] [place] [address] Chest 1 View (Portable) MR#: [id number] Acct: [id number] Name: COMFORT OLSON Rep #: [id number] : 1940 F 76 From: John Babcock MD PCP: Nia Uriostegui DO Status: REG ER Study: Chest 1 View (Portable) Date of Exam: 09/29/17 Exam# [id number] Ordering Dr: Jignesh Tello MD STUDY: X-RAY [...] John Babcock MD at 9:55 EDT Tel [phone], Service support , CC: Nia Uriostegui DO; Jignesh Tello MD Pearl Glue Drier: Signed 25-Sep-2017 Cardiology Visit Report Result: Comments: See Note; NOTES: [facility] [address] [place] [address] OFFICE VISIT Date of Service: 09/25/17 MR#: [id number] Acct: [id number] Name: COMFORT OLSON p #: [id number] : 1940 Provider: Jonel Rashid MD Age/Sex: 76/F Location: [facility] Status: Signed HPI HPI Chief [...] brachial Intake Visit Reasons: 6 M FU Silk Hanger Required: No Accompanied by: nonw Is patient [...] BID 08/24/17 [History Confirmed 09/25/17] Met hscopolamine Hollister 5 mg PO BID 08/24/17 [History Confirmed [...] PO QDAY tab 09/25/17 [History Confirmed 09/25/17] [facility] Medical History Other secondary pulmonary hypertension (Chronic) Cardiomyopathy in diseases classified elsewhere (Chronic) Other cerebral infarction (Chronic) Paroxysmal atrial fibrillation (Chroni c) Atrial enlargement, 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 4. Atherosclerosis of [place] coronary artery of [place] heart without angina pectoris I25.10 08/06/2004 [...] Other Medications New: Follow Up 6 Months (etcher photoengraving) Coding Level of Care Code Off vis,est,level 4 Diagnoses Paroxysmal atrial fibrillation I48.0 Cardiomyopathy in diseases c lassified elsewhere I43 Essential hypertension I10 Hypertension type: essential hypertension Atherosclerosis of [place] coronary artery of [place] heart without angina pectoris I25.10 [place] vs. transplan joel heart: [place] heart Mixed hyperlipidemia E78.2 Hyperlipidemia type: mixed hyperlipidemia Coding Level of Care Code Off vis,est,level 4 Diagnoses Paroxysmal atrial fibrillation I48.0 Cardiomyopath y in diseases classified elsewhere I43 Essential hypertension I10 Hypertension type: essential hypertension Atherosclerosis of [place] coronary artery of [place] heart without angina pectoris I25.10 [place] vs. transplanted heart: [place] heart Mixed hyperlipidemia E78.2 Hyperlipidemia type: mixed hyperlipidemia 09/25/17 1029 <Electronically signed by Jonel Rashid MD> Date __ Jonel Rashid MD Cosigner Signature: Date (if applicable) CC: Nia Uriostegui DO 26-Aug-2017 12 Lead Electrocardiogram Result: Comments: See Note; NOTES: [facility] Cardiovascular Services [address] [place] [address] 12 Lead EKG 08/24/17 1336 MR#: [id number] Acct: [id number] Name: COMFORT OLSON Rep # : [id number] : 1940 76 From: Jonel Rashid MD [...] ECG Confirmed by JONEL RASHID MD ([id number]), development editor AMIRA CASTRO ([id number]) on 08/26/2017 1:37:24 PM Referred B y: YONI Confirmed By:JONEL RASHID MD 08/26/17 1337 Date Jonel Rashid MD CC: Nia Uriostegui DO; Alexis Kemp MD Signed 26-Aug-2017 12 Lead Electrocardiogram Result: Comments: See Note; NOTES: [facility] Cardiovascular Services [address] [place] [address] 12 Lead EKG 08/24/17 0956 MR#: [id number] Acct: [id number] Name: COMFORT OLSON Rep # : [id number] : 1940 76 From: Jonel Rashid MD [...] ECG Confirmed by GAY ROSAS, JONEL ([id number]), development editor AMIRA CASTRO ([id number]) on 08/26/2017 12:50:18 PM Referred By: YONI Confirmed By:JONEL RASHID MD 08/26/17 1250 Date Jonel Rashid MD CC: Nia Uriostegui DO; Alexis Kemp MD Signed 24-Aug-2017 Emergency Department Summary Result: Comments: See Note; NOTES: [facility] Medical Records Department [address] [place] [address] Emergency Department Summary 08/24/17 1336 MR#: [id number] Acct: [id number] Name: COMFORT OLSON Rep #: [id number] : 1940 76 From: Alexis Kemp MD [...] coronary disease This note was generated with [employer] dictation software. It may contain in correct [...] your Primary Care Provider. Call [facility] ([phone]) or report to the [facility] Emergency Room. Call 911 if necessary. 08/24/17 1340 <Electronically signed by Alexis Kemp MD> Date Alexis Villasenor Signdanutau re (If Indicated): Date CC: Jonel Rashid MD; Nia Uriostegui DO 24-Aug-2017 Chest PA and Lateral Result: Comments: See Note; NOTES: [facility] Imaging Services [address] [place] [address] Chest PA and Lateral MR#: [id number] Acct: [id number] Name: COMFORT OLSON Rep #: [id number] : 1940 F 76 From: Clyde Matute MD PCP: Nia Uriostegui DO Status: REG ER Study: Chest PA and Lateral Date of Exam: 08/24/17 Exam# [id number] Ordering Dr: Alexis Kemp MD STUDY: X-RAY [...] CC: Nia Uriostegui DO; Alexis Kemp MD Pearl Glue Drier: Signed 02-Jun-2017 12 Lead EKG performed by [facility] Result: Comments: See Note; NOTES: [facility] [address] [place] [address] 12 Lead EKG performed by [facility] 06/02/17 1121 MR#: [id number] Acct: [id number] Name: COMFORT OLSON Rep #: [id number] : 1940 76 From: Annemarie BLOOD Attending Dr: Annemarie Parsons Status: DEP AMB Ordering Dr: Annemarie Parsons Date: 06/02/17 [place] [facility] [place] Sex: F C Admitted: [facility]/12 Lead EKG performed by [facility] [place] ECG Report Interpretation Sinus Rhythm -Intraventricular conduction defect and left axis -possible anterior fas cicular block consider ventricular hypertrophy. - Nonspecific T-abnormality. ABNORMAL Electronically signed on 06/04/2017 at 14:14 by Jonel Rashid 06/04/17 1415 Date Annemarie BLOOD CC: Nia Uriostegui DO Date Dictated: 06/02/17 112 Date Transcribed: 06/02/171120 Pearl Glue Drier: BARBY Signed 29-May-2017 Cardiology Visit Report Result: Comments: See Note; NOTES: [facility] [address] [place], [place] [address]. [address] [place] [address] OFFICE VISIT Date of Service: 05/26/17 MR#: [id number] Acct: [id number] Name: COMFORT OLSON Re p #: [id number] : 1940 Provider: Annemarie Parsons Age/Sex: 76/F [place] [facility] [place] Status: Signed HPI HPI Details: [...] surgery in 2004. She had an VILLAGRAN vtxf-zd-vdah to second diagonal and to anterior descending [...] (BMI) 33.3 Intake Visit Reasons: per Susi Silk Hanger Required: No Accompanied by: NONE Is patient [...] PO DAILY 11/11/16 [History Confirmed 05/26/17] Methscopolamine Hollister 5 mg PO BID 11/11/16 [History Confirmed [...] enlargement, left (Chronic) Atherosclerotic heart disease of [place] coronary artery without angina pectoris (Chronic) [...] week for an EKG. 2. Atherosclerosis of [place] coronary artery of [place] heart without angina pectoris I25.10 08/06/2004 [...] 1 Week (EKG) 05/26/17 (keep appt with BENCH ASSEMBLY INSPECTOR) Coding Level of Care Code Off vis,est,level 4 Diagnos es Dyspnea on exertion R06.09 Atherosclerosis of [place] coronary artery of [place] heart without angina pectoris I25.10 [place] vs. transplanted heart: [place] heart Essential hypertension I10 Hypertension type: essential hypertension Mixed hyperlipidemia E78.2 Hyperlipidemia type: mixed hyperlipidemia Paroxysmal atrial fibrillation I48.0 Atrial fibrillation type: paroxysmal Coding Level of Care Code O ff vis,est,level 4 Diagnoses Dyspnea on exertion R06.09 Atherosclerosis of [place] coronary artery of [place] heart without angina pectoris I25.10 [place] vs. transplanted heart: [place] heart Essential hy pertension I10 Hypertension [...] CARLOS EDUARDO Result: Comments: See Note; NOTES: [facility] [address] [place] [address] 12 Lead EKG performed by CARLOS EDUARDO 05/26/17 1521 MR#: [id number] Acct: [id number] Name: COMFORT OLSON Rep #: [id number] : 1940 76 From: Annemarie BLOOD Attending Dr: Annemarie Parsons Status: DEP AMB Ordering Dr: Annemarie Parsons Date: 05/26/17 Location: [facility] [place] Sex: F C Admitted: BMS/12 Lead EKG performed [place] [facility] [place] Report Interpretation Marked sinus Bradycardia -Poor R-wave progression - nonspecific -consider old anterior infarct. -Nonspecific ST depression -Nondiagnostic. ABNORMAL Electronically signed on 05/27/2017 at 08:40 by Jonel Rashid 05/27/17 0841 Date Annemarie BLOOD CC: Nia Uriostegui DO Date Dictated: 05/26/17 1521 Date Transcribed: 05/26/17 152 Pearl Glue Drier: BARBY Signed 16-May-2017 Office Visit Report Result: Comments: See Note; NOTES: [address] [address] OFFICE VISIT Date of Service: 05/16/17 MR#: [id number] Acct: [id number] Patient: COMFORT OLSON Rep #: [id number] : 1940 Provider: Jonel Rashid MD Age/Sex: 76/F Location: [facility] Status: Signed Intake Intake Visit Reasons: EKG [...] SON Y 11/11/16 [History Confirmed 05/14/17] Methscopolamine Hollister 5 mg PO BID 11/11/16 [History Confirmed [...] 16-May-2017 12 Lead EKG performed [place] [facility] [place] Result: Comments: See Note; NOTES: [facility] [address] [place] [address] 12 Lead EKG performed by [facility] [place] 05/16/171043 MR#: [id number] Acct: [id number] Name: COMFORT OLSON Rep #: [id number] : 1940 76 From: Annemarie BLOOD Attending Dr: Jonel Rashid MD Status: DEP AMB Ordering Dr: Annemarie Parsons Date: 05/16/17 [place] [facility] [place] Sex: F C Adm itted: [facility]12 Lead EKG performed [place] [facility] [place] [place] Sinus Bradycardia -Poor R-wave progression -may be secondary to pulmonary isease consider old anterior infarct. Rightward P/QRS axis and rota tion possible pulmonary disease. ABNORMAL 05/16/171649 <Electronically signed by Annemarie BLOOD> Date Annemarie BLOOD CC: Nia Uriostegui DO Date Dictated: 05/16/171043 Date Transcribed: 05/16/171043 Pearl Glue Drier: BARBY Signed 16-May-2017 12 Lead EKG performed by [facility] Result: Comments: See Note; NOTES: [facility] [address] [place] [address] 12 Lead EKG performed [place] [facility] 05/16/17 1044 MR#: [id number] Acct: [id number] Name: COMFORT OLSON Rep #: [id number] : 1940 76 From: Annemarie BLOOD Attending Dr: Jonel Rashid MD Status: DEP AMB Ordering Dr: Annemarie Parsons Date: 05/16/17 [place] [facility] [place] Sex: F C Adm itted: [facility]/12 Lead EKG performed [place] [facility] [place] ECG Report Interpretation Sinus Bradycardia -Poor R-wave progression -may be secondary to pulmonary disease conside r old anterior infarct. Rightward P/QRS axis and rotation -possible pulmonary disease. ABNORMAL Electronically signed on 05/17/2017 at 18:31 by Jonel Rashid 05/17/17 1834 Date Annemarie BLOOD CC: Nia Uriostegui DO Date Dictated: 05/16/17 1044 Date Transcribed: 05/16/171043 Pearl Glue Drier: BARBY Signed 14-May-2017 Cardiology Visit Report Result: Comments: See Note; NOTES: [facility] [address] [place] [address] OFFICE VISIT Date of Service: 05/14/17 MR#: [id number] Acct: [id number] Name: COMFORT OLSON Re p #: [id number] : 1940 Provider: Annemarie Parsons Age/Sex: 76/F [place] [facility] [place] Status: Signed HPI HPI Details: COMFORT OLSON, is a 76 F who presents to the office today for an urgent appointm ent for increased shortness of breath. Patient does have a hospital of coronary artery disease with bypass surgery in 2004. 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 Ath erosclerosis of [place] coronary artery of [place] heart without angina pectoris I25.10 08/06/2004 [...] Diagnoses Paroxysmal atrial fibrillation I48.0 Atherosclerosis of [place] coronary artery of [place] heart without angina pectoris I25.10 [place] vs. transplanted heart: [place] heart Essential hy pertension I10 Hypertension type: essential hypertension Mixed hyperlipidemia E78.2 Hyperlipidemia type: mixed hyperlipidemia Coding Level of Care Code Off vis,est,level 4 Diagnoses Paroxysmal atrial fibrillation I48.0 Atherosclerosis of [place] coronary artery of [place] heart without angina pectoris I25.10 [place] vs. transplanted heart: [place] heart Essential hypertension I10 Hypertension type: ess ential hypertension Mixed hyperlipidemia E78.2 Hyperlipidemia type: mixed hyperlipidemia 05/14/17 1718 <Electronically signed by Annemarie BLOOD> Date Annemarie BLOOD 05/14/17 1732<Electronically signed by Jonel Rashid MD> Cosigner Signature: Date (if applicable) Jonel Rashid MD CC: Nia Uriostegui 14-May-2017 12 Lead EKG performed by [facility] Result: Comments: See Note; NOTES: [facility] [address] [place] [address] 12 Lead EKG performed by [facility] 05/14/17 1104 MR#: [id number] Acct: [id number] Name: COMFORT OLSON Rep #: [id number] : 1940 76 From: Annemarie BLOOD Attending Dr: Annemarie Parsons Status: DEP AMB Ordering Dr: Annemarie Parsons Date: 05/14/17 [place] [facility] [place] Sex: F C Admitted: [facility]/12 Lead EKG performed by [facility] Marked sinus Bradycardia -Intraventricular conduction defect -consider left entricular hypertrophy. -Lateral infarct -age undetermined. - -abnormality -Possible Inferior and lateral ischemia. ABNORMAL 05/15/17 1041 <Electronically signed by Annemarie BLOOD> Date M farhan BLOOD CC: Nia Uriostegui DO Date Dictated: 05/14/171103 Date Transcribed: 05/14/171103 Pearl Glue Drier: BARBY Signed 14-May-2017 12 Lead EKG performed by [facility] Result: Comments: See Note; NOTES: [facility] [address] [place] [address] 12 Lead EKG performed by [facility] 05/14/171103 MR#: [id number] Acct: [id number] Name: COMFORT OLSON Rep #: [id number] : 1940 76 From: Annemarie BLOOD Attending Dr: Annemarie Parsons Status: DEP AMB Ordering Dr: Annemarie Parsons Date: 05/14/17 Location: [facility] Sex: F C Admitted: [facility]/12 Lead EKG performed [place] [facility] [place] ECG Report Interpretation Marked sinus Bradycardia -Intraventricular conduction defect -consider left ventricul ar hypertrophy. -Lateral infarct -age undetermined. - T-abnormality -Possible Inferior and lateral ischemia. ABNORMAL Electronically signed on 05/17/2017 at 18:31 by Jonel Rashid 05/17/17 1834 Date __ Annemarie BLOOD CC: Nia Uriostegui DO Date Dictated: 05/14/171103 Date Transcribed: 05/14/171103 Pearl Glue Drier: BARBY Signed 09-May-2017 Office Visit Report Result: Comments: See Note; NOTES: [facility] [address] [place] [address]. [place] [address] OFFICE VISIT Date of Service: 05/09/17 MR#: [id number] Acct: [id number] Patient: COMFORT OLSON Rep #: [id number] : 1940 Provider: Albert Kerr RN Age/Sex: 76/F [place] [facility] [place] Status: Signed Intake Intake Visit Reasons: EKG 4 wk s/p per BENCH ASSEMBLY INSPECTOR Allergies No Known Allergies Allergy (Verified 05/04 [...] PO DAILY 11/11/16 [History Confirmed 04/19/17] Methscopolamine Hollister 5 mg PO BID 11/11/16 [History Confirmed [...] 09-May-2017 12 Lead EKG performed [place] [facility] Result: Comments: See Note; NOTES: [facility] [address] [place] [address] 12 Lead EKG performed by [facility] 05/09/17 1110 MR#: [id number] Acct: [id number] Name: COMFORT OLSON Rep #: [id number] : 1940 76 From: Jonel Rashid MD Attending Dr: Albert Kerr RN Status: DEP AMB Ordering Dr: Jonel Rashid MD Date: 05/09/17 [place] [facility] [place] Sex: F C Admitted: [facility]/12 Lead EKG performed by [facility] ECG Report Interpretation Sinus Rhythm -Nonspecific QRS widening and anterior fascicular block. -Poor R-wave progression -nonspec ific -consider old anterior infarct. -Nonspecific ST depression -Nondiagnostic. ABNORMAL Electronically signed on 05/17/2017 at 18:31 by Jonel Rashid 05/17/17 1834 Date Jonel Rashid MD CC: Nia Uriostegui DO Date Dictated: 05/09/171109 Date Transcribed: 05/09/171109 Pearl Glue Drier: CO Signed 09-May-2017 12 Lead EKG performed by [facility] Result: Comments: See Note; NOTES: [facility] [address] [place] [address] 12 Lead EKG performed by [facility] 05/09/171109 MR#: [id number] Acct: [id number] Name: COMFORT OLSON Rep #: [id number] : 1940 76 From: Jonel Rashid MD Attending Dr: Albert Kerr RN Status: DEP AMB Ordering Dr: Jonel Rashid MD Date: 05/09/17 Location: [facility] Sex: F C Admitted: [facility]/12 Lead EKG performed [place] [facility] Sinus Rhythm -Nonspecific QRS widening and anterior fascicular block. -Poor -wave progression -nonspecific -consider old anterior infarct. -Nonspecific T d epression -Nondiagnostic. ABNORMAL 05/09/17 1610 <Electronically signed by Jonel Rashid MD> Date Jonel Rashid MD CC: Nia Beth O Date Dictated: 05/09/171109 Date Transcribed: 05/09/171109 Pearl Glue Drier: CO Signed 06-May-2017 12 Lead Electrocardiogram Result: Comments: See Note; NOTES: [facility] Cardiovascular Services [address] [place] [address] 12 Lead EKG 05/04/17 2237 MR#: [id number] Acct: [id number] Name: COMFORT LOSON Rep # : [id number] : 1940 76 From: Jonel Rashid MD [...] ECG Confirmed by GAY ROSAS, JONEL ([id number]), development editor AMIRA CASTRO ([id number]) on 05/06/2017 1:42:52 PM Referred By: DONY Confirmed By:JONEL RASHID MD 05/06/17 1342 Date Jonel Rashid MD CC: Natalya Napoles MD; Nia Uriostegui Signed 06-May-2017 12 Lead Electrocardiogram Result: Comments: See Note; NOTES: [facility] Cardiovascular Services [address] [place] [address] 12 Lead EKG 05/04/17 2045 MR#: [id number] Acct: [id number] Name: COMFORT OLSON Rep # : [id number] : 1940 76 From: Jonel Rashid MD [...] ECG Confirmed by JONEL RASHID MD ([id number]), development editor AMIRA CASTRO ([id number]) on 05/06/2017 1:08:29 PM Referred By: RICKY NAPOLES Confirmed By:JONEL RASHID MD 05/06/17 1308 Date Jonel Rashid MD CC: Natalya Napoles MD; Nia Uriostegui DO Signed 04-May-2017 Emergency Department Summary Result: Comments: See Note; NOTES: [facility] Medical Records Department [address] [facility] [place] [address] Emergency Department Summary 05/04/17 2259 MR#: [id number] Acct: [id number] Name: COMFORT OLSON Rep #: [id number] : 1940 76 From: Natalya Napoles MD [...] ED physician This note was generated with [employer] dictation software. It may contain incorre ct words, spelling, and punctuation that were not noted in review of the chart prior to signing ED Disposition - Plan for ED Patient: Chief Complaint: Palpitations Referrals: Nia Uriostegui, [[facility] Care Provider] - What to do if you have Problems For any increased pain, shortness of breath, bleeding, nausea or vomiting, chest pain, or any unexpected problems, contact your Primary Care Pro vider. Call Doctors Registry ([phone]) or report to the closest Emergency Room. Call 911 if necessary. 05/04/17 4817 <Electronically signed by Natalya Napoles MD> Date Natalya Napoles MD Cosigner Signature (If Indicated): Date CC: Nia Uriostegui 04-May-2017 Discharge Instruction Result: Comments: See Note; NOTES: [facility] Medical Records Department [address] [place] [address] Discharge Instruction 05/04/172339 MR#: [id number] Acct: [id number] Name: Liyah OLSON Rep #: [id number] : 1940 76 From: Natalya Napoles MD [...] your Primary Care Provider. Call [facility] ([phone]) or report to the closest Emergency Room. Call 911 if necessary. 05/04/172340 <Electronically signed by Natalya Napoles MD> Date Natalya mary MD Cosigner Signature (If Indicated): Date CC: Nia Moody DO 04-May-2017 Chest 1 View (Portable) Result: Comments: See Note; NOTES: [facility] Imaging Services [address] [place] [address] Chest 1 View (Portable) MR#: [id number] Acct: [id number] Name: COMFORT OLSON Rep #: [id number] : 1940 F 76 From: Rafael Perez MD PCP: Nia Uriostegui DO Status: REG ER Study: Chest 1 View (Portable) Date of Exam: 05/04/17 Exam# [id number] Ordering Dr: Natalya Napoles MD STUDY: X [...] CC: Natalya Napoles MD; Nia Uriostegui DO Pearl Glue Drier: Signed 19-Apr-2017 Emergency Department Summary Result: Comments: See Note; NOTES: [facility] Medical Records Department [address] [place] [address] Emergency Department Summary 04/19/17 1757 MR#: [id number] Acct: [id number] Name: COMFORT OLSON Rep #: [id number] : 1940 76 From: Deisi Ryan MD [...] with RVR This note was generated with [employer] software. It may contain incorrect words, spelling, [...] your Primary Care Provider. Call [facility] ([phone]) or report to the closest Emergency Room. Call 911 if necessary. 04/19/171930 <Electronically signed by Deisi moscoso MD> Date Deisi Ryan MD Cosigner Signature (If Indicated): Date CC: Nia Uriostegui DO 19-Apr-2017 Chest 1 View (Portable) Result: Comments: See Note; NOTES: [facility] Imaging Services [address] [place] [address] Chest 1 View (Portable) MR#: [id number] Acct: [id number] Name: COMFORT OLSON Rep #: [id number] : 1940 F 76 From: Thanh Ambriz MD PCP: Nia Uriostegui DO Status: PRE ER Study: Chest 1 View (Portable) Date of Exam: 04/19/17 Exam# [id number] Ordering Dr: Deisi Ryan MD STUDY: X- [...] CC: Deisi Ryan MD; Nia Uriostegui DO Pearl Glue Drier: Signed 14-Mar-2017 Cardiology Visit Report Result: Comments: See Note; NOTES: [facility] [address] [place] [address] OFFICE VISIT Date of Service: 03/14/17 MR#: [id number] Acct: [id number] Name: COMFORT OLSON p #: [id number] : 1940 Provider: JOSSELYN Lombardo Age/Sex: 76/F [place] [facility] [place] Status: Signed HPI 3 M [...] less than 30% stenosis. Patient returned to [employer] approximately one week later and showed a [...] Intak e Visit Reasons: 3 M FU Silk Hanger Required: No Accompanied by: None Is patient [...] DAILY 11/11/16 [History Confirmed 02/28/17] M ethscopolamine Hollister 5 mg PO BID 11/11/16 [History Confirmed [...] enlargement, left (Chronic) Atherosclerotic heart disease of [place] coronary artery without cynthia na pectoris [...] updated BP readings. 3. Atheroscle rosis of [place] coronary artery of [place] heart without angina pectoris I25.10 08/06/2004 [...] to sa lance. Follow Up 6 Months (BENCH ASSEMBLY INSPECTOR) Coding Level of Care Code Off vis,est,level 3 Diagnoses Essential hypertension I10 Hypertension type: essential hypertension Cardiomyopathy in diseases classified elsew here I43 Atherosclerosis of [place] coronary artery of [place] heart without angina pectoris I25.10 [place] vs. transplanted heart: [place] heart Paroxysmal atrial fibrillation I48.0 Mixed hyperlipidemia E7 8.2 Hyperlipidemia type: mixed hyperlipidemia Coding Level of Care Code Off vis,est,level 3 Diagnoses Essential hypertension I10 Hypertension type: essential hypertension Cardiomyopathy in diseases c lassified elsewhere I43 Atherosclerosis of [place] coronary artery of [place] heart without angina pectoris I25.10 [place] vs. transplanted heart: [place] heart Paroxysmal atrial fibrillation I48.0 Mixed hy perlipidemia E78.2 Hyperlipidemia type: mixed hyperlipidemia 03/14/17 1154 <Electronically signed by Richard FREGOSOC> Date Richard Lombardo SUPERINTENDENT PIER-C 03/14/17 1527<Electronically signed by Jonel Rashid MD> Cosigner Signature: Date (if applicable) Jonel Rashid MD CC: Nia Uriostegui DO 10-Mar-2017 Echo, Complete w/ Contrast Result: Comments: See Note; NOTES: [facility] Cardiovascular Services [address] [place] [address] Echo Complete W/ Contrast 03/10/17 1008 MR#: [id number] Acct: [id number] Name: COMFORT JONES Rep #: [id number] : 1940 76 From: Jonel Rashid MD Attending Dr: Jonel Rashid MD Status: REG I Ordering Dr: Jonel Rashid MD Date: 03/10/17 Location: [facility] Sex: F C Admitted: [...] 03/10/17 1008 Date Transcr ibed: 03/10/17 1412 Pearl Glue Drier: Signed 13-Nov-2016 CTA Chest W/WO Contrast Result: Comments: See Note; NOTES: [facility] Imaging Services [address] [place] [address] CTA Chest W/WO Contrast MR#: [id number] Acct: [id number] Name: COMFORT OLSON Rep #: [id number] : 1940 F 75 From: Charly Almendarez DO PCP: Nia Uriostegui DO Status: REG ER Study: CTA Chest W/WO Contrast Date of Exam: 11/13/16 Exam# [id number] Ordering Dr: Emery Allen MD STUDY: CTA [...] CC: Emery Allen MD; Nia Uriostegui DO Pearl Glue Drier: Signed 11-Nov-2016 Chest 1 View (Portable) Result: Comments: See Note; NOTES: [facility] Imaging Services [address] [place] [address] Chest 1 View (Portable) MR#: [id number] Acct: [id number] Name: COMFORT OLSON Rep #: [id number] : 1940 F 75 From: Jorge Herman MD PCP: Nia Uriostegui DO Status: REG ER Study: Chest 1 View (Portable) Date of Exam: 11/11/16 Exam# [id number] Ordering Dr: Jignesh Tello MD STUDY: X-RA [...] CC: Nia vo DO; Jignesh Tello MD Pearl Glue Drier: Signed 16-Jan-2016 Chest PA and Lateral Result: Comments: See Note; NOTES: [facility] Imaging Services [address] [place] [address] Verda 4d Chest PA and Lateral MR#: [id number] Acct: [id number] Name: COMFORT OLSON Rep #: [id number] : 1940 F 75 From: John Babcock MD PCP: Balbir Cramer Status: REG CLI Study: Chest PA and Lateral Date of Exam: 01/16/16 Exam# [id number] Ordering Dr: Balbir Cramer STUDY: X-RAY CHEST [...] John Babcock MD at 13:26 EST Tel [phone], Service support , CC: Balbir Cramer Pearl Glue Drier: Signed 14-Dec-2014 Bilat Scrn Digital AND CAD Result: Comments: See Note; NOTES: [facility] Imaging Services [address] [place] [address] Verdana 4d Bilat Scrn Digital AND CAD MR#: [id number] Acct: [id number] Name: COMFORT OLSON Rep #: [id number] : 1940 F 74 From: John Babcock MD PCP: Maylin Melendez DO Status: REG CLI Study: Bilat Scrn Digital AND CAD Date of Exam: 12/14/14 Exam# [id number] Ordering D r: Maylin Melendez DO MAMMOGRAPHY [...] John Babcock MD at 14:05 EST Tel [phone], Service support [phone], CC: Maylin Melendez DO Pearl Glue Drier: Signed 14-Dec-2014 Carotid Duplex Ultrasound Result: Comments: See Note; NOTES: [facility] Cardiovascular Services [address] [place] [address] Carotid Duplex Ultrasound 12/12/14 1007 MR#: [id number] Acct: [id number] Name: COMFORT OLSON Rep #: [id number] : 1940 74 From: Darian Anderson MD Attending Dr: Maylin Melendez DO Status: REG CLI Ordering Dr: Maylin Melendez DO Date: 12/12/14 Location: [facility] Sex: F C Admi [...] the left vertebral artery. Procedure Carotid Duplex 51057. Exam performed in department. Interpreta tion Summary [...] Date Dictated: 12/12/14 1007 Date Transcribed: 12/14/1437 Pearl Glue Drier: Signed 25-Apr-2014 Nuclear Stress Test - Chemical Result: Comments: See Note; NOTES: [facility] Imaging Services [address] [place] [address] Nuclear Medicine Report MR#: [id number] Acct: [id number] Name: COMFORT OLSON Rep #: [id number] : 1940 F 73 From: Jonel Rashid MD PCP: Maylin Melendez DO Status: REG CLI Study: Nuclear Stress Test - Chemical Date of Exam: 04/25/14 Exam# [id number] Ordering Dr: Jonel Rashid MD P HARMACOLOGIC [...] CC: Jonel Rashid MD; Maylin Melendez DO Pearl Glue Drier: CALIX Signed 31-Jan-2014 Spirometry (78970) Comments: Moderate restriction similar to previous Result: 14-Jan-2014 Chest PA and Lateral Result: Comments: See Note; NOTES: [facility] Imaging Services [address] [place] [address] Radiology Report MR#: [id number] Acct: [id number] Name: COMFORT OLSON Rep #: [id number] : 1940 F 73 From: John Babcock MD PCP: Maylin Melendez DO Status: REG CLI Study: Chest PA and Lateral Date of Exam: 01/14/14 Exam# [id number] Ordering Dr: Sherrie Amor STUDY: X-RAY CH [...] John Babcock MD at 14:58 EST Tel [phone], Service support [phone], RAD/Chest PA and Lateral IMPRESSION: Mild increased markings at the lung bases suggestive of linear atelectasis. Electronica lly Signed: John Babcock MD at 14:58 EST Tel [phone], Service support [phone], CC: Sherrie Amor; Maylin Melendez DO Pearl Glue Drier: Signed 07-Sep-2013 Knee 4 or More Views Result: Comments: See Note; NOTES: [facility] Imaging Services [address] [place] [address] Radiology Report MR#: [id number] Acct: [id number] Name: COMFORT OLSON Rep #: [id number] : 1940 F 72 From: Yusuf Lopes PCP: Maylin Melendez DO Status: REG CLI Study: Knee 4 or More Views Date of Exam: 09/07/13 Exam# [id number] Ordering Dr: Maylin Melendez DO STUDY: X-RAY [...] Yusuf Lopes MD at 4:00 EDT Tel [phone] , Service support [phone] , CC: Maylin Melendez DO Pearl Glue Drier: Signed 22-Aug-2013 Carotid Duplex Ultrasound Result: Comments: See Note; NOTES: [facility] Cardiovascular Services [address] [place] [address] Carotid Duplex Ultrasound 08/20/13 0945 MR#: [id number] Acct: [id number] Nam e: COMFORT OLSON Rep #: [id number] : 1940 72 From: Darian Anderson MD Attending Dr: Maylin Melendez DO Status: REG CLI Ordering Dr: Maylin Melendez DO Date: 08/20/13 Location: [facility] Sex: F C Admitted: [...] the left vertebral artery. Procedure Carotid Duplex 09729. Exam performed in [facility] ent. Interpretation Summary Mild (<50%) stenosis right extracranial internal carotid. Mild (<50%) stenosis left extracranial internal carotid. Flow within the vertebral arteries is antegrade bilaterally. Ordering Physician: Maylin Melendez Performed By: Sanaz Sheth RVT : Maylin Melendez DO Date Dictated: 08/20/1345 Date Transcribed: 08/22/13 0848 Pearl Glue Drier: Signed 09-Jul-2013 Chest PA and Lateral Result: Comments: See Note; NOTES: [facility] Imaging Services [address] [place] [address] Radiology Report MR#: [id number] Acct: [id number] Name: COMFORT OLSON Rep #: [id number] : 1940 F 72 From: Jermaine Khan DO PCP: Maylin Melendez DO Status: REG CLI Study: Chest PA and Lateral Date of Exam: 07/09/13 Exam# [id number] Ordering Dr: Sherrie Amor STUDY: X-RAY CHEST [...] Jermaine Khan DO at 22:50 EDT Tel [phone] , Service support [phone], CC: Sherrie Amor; Maylin Melendez DO Pearl Glue Drier: Signed 08-Jan-2013 PT Discharge Summary Result: Comments: See Note; NOTES: [facility] Physical Therapy [facility] [address] [place] [address] [address] [place] [id number] Fax REHABILITATION SERVICES DISCHARGE SUMMARY MR#: [id number] Acct: [id number] Name: COMFORT OLSON Rep #: [id number] : 1940 72 From: Farrukh Hull Referring [...] has. Farrukh Hull, PT T: NTS JOB: [id number] <Electronically signed by Farrukh Hull > 01/08/13 0648 CC: * Signed 18-Dec-2012 Inital Evaluation - PT Result: Comments: See Note; NOTES: [facility] [address] [facility] [place] [address] Fax REHABILITATION SERVICES INITIAL EVALUATION MR#: [id number] Acct: [id number] Name: COMFORT OLSON Rep #: [id number] : 1940 72 From: Farrukh Hull Referring Dr.: Maylin Melendez DO Status: REG RCR Insurance: MEDICARE PAR T A B Eval Date: CORPORATE CLAIMS EXAMINER BENEFIT PLAN DATE OF SERVICE: 12/18/2012 PHYSICIAN: Maylin Melendez D.O. DIAGNOSIS: Benign paroxysmal positional vertigo. SUBJECTIVE: oCmfort Olson is a 72-year-old female, who presents [...] She has dizziness wi th left-sided Hallpike [place] test. No obvious nystagmus. Right- sided Hallpike [...] therapy. Farrukh Hull, PT T: NTS JOB: [id number] <Electronically signed by Farrukh Hull > 12/18/12 1151 CC: Signed For Medicare only, by signing this I certify the plan of care. 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 Status: Active Living Situation Comments: Lives with [...] kg/m2 Body Surface Area Calculated 1.92 m2 2-Rbh-110094:27 Pulse 70 /min Comments: Pattern: Regular Respiration [...] kg/m2 Body Surface Area Calculated 2.01 m2 22-Ifa-886064:19 Temperature 96.1 f Pulse 76 /min Comments: [...] kg/m2 Body Surface Area Calculated 2 m2 82-Bli-216460:11 Comments: Recheck BP 158/82 Temperature 100 f [...] Description Value Details :42 HgA1C , Office (09745) HgA1C , Office 7.1 % (Normal) Range: 4.6 - 7.1 :42 Blood Glucose , Office (41028) Blood Glucose , Office 135 (Normal) :55 Basic Metabolic Profile (BMP) Comments: [facility] [address] [place], [place], [address] GAP 14 (Normal) Range: 5-15 CO2 23.0 [...] A.D.A. criteria.Please note revised GLUCOSE reference range vaqbpuffc75/02/2018. 25-Twz-94801:55 CBC W/Diff, Automated Comments: [facility] Xtq[address] [place], [place], [address] Absolute Lymph 2.08 {X10_3/ul} (Normal) Range: 0.83-4.51 [...] K/mm3 (Normal) Range: 4.4-11.0 :55 Troponin-I Comments: [facility] [address] [place], [place], [address] TROPONIN-I < 0.015 ng/mL (Normal) Comments: TROPONIN-I EXPECTED VALUES <0.045 Negative 0.045 - 0.590 Consistent with Cardiac Damage > OR = 0.600 Critical Value Not every elevated troponin is indicative of VT. T hesevalues should be used with clinical judgement in examiningthe patient's clinical picture for diagnosis. To establisha diagnosis of VT versus myocardial injury, there must be ademonstrated rise and/ or fall in the troponin values, inaddition to ischemic symptoms, EKG changes, new regionalwall motion abnormality, and/or angiographical evidence. PLEASE NOTE: REFERENCE RANGES EDITED 17:05 Basic Metabolic Profile (BMP) Comments: [facility] [address] [place], [place], [address] GAP 8 (Normal) Range: 5-15 CO2 28.0 [...] A.D.A. criteria.Please note revised GLUCOSE reference range tornkxvpa07/02/2018. :05 CBC W/Diff, Automated Comments: [facility] [address] [place], [place], [address] Absolute Lymph 2.24 {X10_3/ul} (Normal) Range: 0.83-4.51 [...] 4.2-5.4 WBC 8.3 K/mm3 (Normal) Range: 4.4-11.0 70-Ffm-85159:05 Troponin-I Comments: [facility] [address] [place], [place], [id number] TROPONIN-I 0.020 ng/mL (Normal) Comments: TROPONIN-I EXPECTED VALUES <0.045 Negative 0.045 - 0.590 Consistent with Cardiac Damage > OR = 0.600 Critical Value Not every elevated troponin is indicative of VT. T hesevalues should be used with clinical judgement in examiningthe patient's clinical picture for diagnosis. To establisha diagnosis of VT versus myocardial injury, there must be ademonstrated rise and/ or fall in the troponin values, inaddition to ischemic symptoms, EKG changes, new regionalwall motion abnormality, and/or angiographical evidence. PLEASE NOTE: REFERENCE RANGES EDITED 06/23/1727-Aug-201786-Rjb-050129:18 HgA1C , Office (42841) HgA1C , Office 7.6 % (Abnormal) Range: 4.6 - 7.1 10-Yzm-726589:18 Blood Glucose , Office (57290) Blood Glucose , Office 142 (Normal) :51 Basic Metabolic Profile (BMP) Comments: [facility] [address] [place], [address] GAP 9 (Normal) Range: 5-15 CO2 25.0 [...] A.D.A. criteria.Please note revised GLUCOSE reference range ddsjyioxf03/02/2018. :51 CBC W/Diff, Automated Comments: [facility] [address] [place], [address] Absolute Lymph 2.43 {X10_3/ul} (Normal) [...] K/mm3 (Normal) Range: 4.4-11.0 :51 Troponin-I Comments: [facility] [address] [place] [place], [address] TROPONIN-I < 0.015 ng/mL (Normal) Comments: TROPONIN-I EXPECTED VALUES <0.045 Negative 0.045 - 0.590 Consistent with Cardiac Damage > OR = 0.600 Critical Value Not every elevated troponin is indicative of VT. T hesevalues should be used with clinical judgement in examiningthe patient's clinical picture for diagnosis. To establisha diagnosis of VT versus myocardial injury, there must be ademonstrated rise and/ or fall in the troponin values, inaddition to ischemic symptoms, EKG changes, new regionalwall motion abnormality, and/or angiographical evidence. PLEASE NOTE: REFERENCE RANGES EDITED 06/23/1728-May-201795-Tns-029113:47 CALCIFEDIOL (53722) Comments: PATIENT NOT FASTINGPERFORMED BY: [facility] [id number] Vitamin D, 25-Hydroxy 20.2 ng/mL (Abnormal) Range: 30.0-100.0 Comments: Vitamin D deficiency has been defined by the [place] ofMedicine and an Endocrine Society practice guideline as alevel of serum 25-OH vitamin D less than 20 ng/mL (1,2).The Endocrine Society went on to further define vitamin Dinsufficiency as a level between 21 and 29 ng/mL (2).1. IOM ([place] of Medicine). 2010. Dietary reference intakes for calcium and D. [place]: The National Academies Press.2. Bobo MF, Estrellita NC, Maddi CALIX, et al. Evaluation, treatment, and prevention of vitamin D deficiency: an Endocrine Society clinical practice guideline. JCEM. 2010; 96(7):1911-30. 57-Yhs-672416:47 VITAMIN B-12 (CYANOCOBALAMIN) Comments: PATIENT NOT FASTINGPERFORMED BY: [facility] [id number] (04927) Vitamin B12 311 pg/mL (Normal) Range: 232-1245 41-Zhn-454114:26 HgA1C , Office (57742) HgA1C , Office 7.3 % (Abnormal) Range: 4.6 - 7.1 38-Bxg-701465:26 Blood Glucose , Office (66595) Blood Glucose , Office 136 (Normal) 70-Jye-420407:56 Basic Metabolic Profile (BMP) Comments: 'TROP' Serial specimen #1, #2, #3, or #4: [facility] [address]rgc[address] [place], [address] GAP 11 (Normal) Range: 5-15 CO2 27.0 [...] A.D.A. criteria.Please note revised GLUCOSE reference range rjlfcpkaz96/02/2018. 47-Sie-993290:56 CBC W/Diff, Automated Comments: [facility] [address] [place], [place], [address] Absolute Lymph 3.30 {X10_3/ul} (Normal) Range: 0.83-4.51 [...] 4.2-5.4 WBC 9.3 K/mm3 (Normal) Range: 4.4-11.0 24-Xwx-614913:56 Troponin-I Comments: 'TROP' Serial specimen #1, #2, #3, or #4: [address] [place] [address] [address] [facility] [place], [address] TROPONIN-I < 0.02 ng/mL (Normal) Comments: TROPONIN-I EXPECTED VALUES <0.05 NEGATIVE 0.06 - 0.59 AT RISK OF VT > OR = 0.60 SUGGEST VT 00-Unj-192264:33 Basic Metabolic Profile (BMP) Comments: 'TROP' Serial specimen #1, #2, #3, or #4: [address] [place] [address] [address] [place], [place], [address] GAP 10 (Normal) Range: 5-15 CO2 25.0 [...] A.D.A. criteria.Please note revised GLUCOSE reference range adljhvxnb67/02/2018. 47-Nsx-904361:33 CBC W/Diff, Automated Comments: [facility] [address] [place], [address] Absolute Lymph 3.48 {X10_3/ul} (Normal) Range: 0.83-4.51 [...] 4.2-5.4 WBC 10.4 K/mm3 (Normal) Range: 4.4-11.0 32-Jco-791802:33 Troponin-I Comments: 'TROP' Serial specimen #1, #2, #3, or #4: [facility] [address]ubcctu[address] [place], [place], [address] TROPONIN-I 0.14 ng/mL (Abnormal) Comments: TROPONIN-I EXPECTED VALUES <0.05 NEGATIVE 0.06 - 0.59 AT RISK OF VT > OR = 0.60 SUGGEST VT 3-Mfo-915157:16 HgA1C , Office (26898) HgA1C , Office 7.9 % (Abnormal) Range: 4.6 - 7.1 9-Elh-801845:15 Blood Glucose , Office (60150) Blood Glucose , Office 166 (Normal) 1-Hfw-971411:25 Basic Metabolic Profile (BMP) Comments: Order Date: 12/13/16Order Info: [id number] - *BMPComments: Reason:[facility] Q[address] [place], [place], [address] GAP 9 (Normal) Range: 5-15 CO2 29.0 [...] 200 mg/dLsuggests DIABETES MELLITUS per A.D.A. criteria. 77-Bly-609225:27 Basic Metabolic Profile (BMP) Comments: Order Date: 11/19/16Order Info: [id number] - *BMPComments: Reason:[facility] [address]hor[address] [place], [place], [address] GAP 8 (Normal) Range: 5-15 CO2 27.0 [...] 200 mg/dLsuggests DIABETES MELLITUS per A.D.A. criteria. 52-Aiv-232446:27 Partial Thromboplast Time Comments: Order Date: 11/19/16Order Info: [id number] - *PT/INROrder Info: [id number] - *PTT-Partial Thromboplastin TimeWBar[facility] [address]xkybcmq[address] [place], [place], [address] PTT 29.4 s (Normal) Range: 24.1-36.2 97-Ugf-237403:27 Prothrombin Time w/INR Comments: Order Date: 11/19/16Order Info: [id number] - *PT/INROrder Info: [id number] - *PTT-Partial Thromboplastin TimeWBarberton [facility] Hospital Vbmvwxscdn8[address] [place], [place], [address] INR 1.1 (Normal) PROTIME 13.4 s (Normal) Range: 11.7-14.9 4-Oct-65542:05 Basic Metabolic Profile (BMP) Comments: 'TROP' Serial specimen #1, #2, #3, or #4: 1[facility] [address] [place], [address] GAP 10 (Normal) Range: 5-15 CO2 25.0 [...] A.D.A. criteria. :05 BNP,B-Type NATRIURETIC PEPTIDE Comments: [facility] [address]uf[address]. [place], [place], [address] B-TYPE ANDREW PEP 316.0 pg/mL (Abnormal) Range: 0-100 :05 CBC W/Diff, Automated Comments: [facility] [address]cghumo[address] [place], [address] Absolute Lymph 1.26 {X10_3/ul} (Normal) [...] specimen #1, #2, #3, or #4: [address] [place] [address] [address]61 [place], [address] TROPONIN-I 0.15 ng/mL (Abnormal) Comments: TROPONIN-I EXPECTED VALUES <0.05 NEGATIVE 0.06 - 0.59 AT RISK OF VT > OR = 0.60 SUGGEST VT 1-Fbj-262551:10 Basic Metabolic Profile (BMP) Comments: 'TROP' Serial specimen #1, #2, #3, or #4: [address] [place] [address] [address]y4597 [place], [address] GAP 13 (Normal) Range: 5-15 [...] 200 mg/dLsuggests DIABETES MELLITUS per A.D.A. criteria. 9-Pae-921455:10 CBC W/Diff, Automated Comments: [facility] [address]kg[address] [place], [address] Absolute Lymph 2.88 {X10_3/ul} (Normal) Range: 0.83-4.51 [...] specimen #1, #2, #3, or #4: [address] [place] [address] [place], [address] TSH 1.29 {uIU/mL} (Normal) Range: 0.358-3.74 :10 Troponin-I Comments: 'TROP' Serial specimen #1, #2, #3, or #4: [address] [place] [address] [place], [address] TROPONIN-I < 0.02 ng/mL (Normal) Comments: TROPONIN-I EXPECTED VALUES <0.05 NEGATIVE 0.06 - 0.59 AT RISK OF VT > OR = 0.60 SUGGEST VT :58 HgA1C , Office (85603) HgA1C , Office 7.6 % (Abnormal) Range: 4.6 - 7.1 :58 Blood Glucose , Office (91518) Blood Glucose , Office 159 (Normal) :50 CBC W/Diff, Automated Comments: [facility] [address] [place], [address] Absolute Lymph 1.46 {X10_3/ul} (Normal) [...] 4.2-5.4 WBC 7.3 K/mm3 (Normal) Range: 4.4-11.0 17-Qqe-671865:50 CCP IgG Antibodies Comments: [facility] (refer to report for specific site)refer to report for address and phone number ANTI-CCP [id number] 4 {units} (Normal) Range: 0-19 Comments: Negative <20 Weak positive 20 - 39 Moderate positive 40 - 59 Strong positive >59 24-Bzd-016705:50 Comprehensive Metabolic Profil Comments: [facility] [address] [place], [place], [address] GAP 9 (Normal) Range: 5-15 CO2 26.0 [...] 126 mg/dLsuggests DIABETES MELLITUS per A.D.A. criteria. 91-Fhc-924721:50 CRP Comments: [facility] Ffeuusugjl2899 [facility]. [place], [place], [address] C-REACTIVE PROT 8.89 mg/L (Abnormal) Range: 0.0-3.0 Comments: C-Reactive Protein (CRP) provides useful information for thediagnosis, therapy and monitoring of inflammatory processesand associated diseases. For the evaluation of Relative Riskfor Cardiovascular Dise ase, a High Sensitivity CRP (HSCRP)should be ordered. 74-Lwg-184766:50 Erythrocyte Sed Rate Comments: [facility] Xktnjgznso10[address] [facility] [place], [address] SED RATE 27 mm/h (Normal) Range: 0-30 30-Bvf-779532:50 Hep B Surface Antibodies Comments: [facility] (refer [...] SURF AG Negative (Normal) Comments: Performed at: [facility] Lab[address] [id number] Director: Christopher Sullivan PhD, Phone: [phone] at: [address] [id number] Director: Loco Ivey MD, Phone: [phone] :50 Hepatitis C Antibodies Comments: [facility] (refer to report for specific site)refer to report for address and phone number HEP C AB <0.1 {s/co_ratio} (Normal) Range: 0.0-0.9 Comments: Negative: < 0.8 Indeterminate: 0.8 - 0.9 Positive: > 0.9 The CDC recommends that a positive HCV antibody result be followed up with a HCV Nucleic Acid Amplification test (786591). :50 Rheumatoid Factor Comments: [facility] I[address]vvyh9[address] [facility]. [place], [place], [address] RHEUMATOID FAC < 10.0 {IU/mL} (Normal) :50 Uric Acid Comments: [facility] Bxobxvwuej8[address] [facility]. [place], [place], [address] URIC 7.1 mg/dL (Abnormal) Range: 2.6-6.0 Comments: The drugs N-Acetylcysteine and Metamizole may falselydepress this assay. :03 Unable to Void SPRCS (Normal) Comments: PATIENT WAS FASTINGPERFORMED BY: [address] [id number] Comments: The patient was not able to render a urine sample and has beeninstructed to return for a urine collection at their earliestconvenience. The urine testing that you have requested hasbeen deleted from th is report. When the patient returns andprovides a urine specimen, the urine testing will be performedand separately reported. :03 VITAMIN B-12 (CYANOCOBALAMIN) Comments: PATIENT WAS FASTINGPERFORMED BY: [employer] [facility] [employer] TechnologiesL[facility] [id number] (86219) Vitamin B12 264 pg/mL (Normal) Range: 211-946 :03 METABOLIC PANEL, COMPREHENSIVE Comments: PATIENT WAS FASTINGPERFORMED BY: [employer] [id number] (63832) ALT (SGPT) 7 [iU]/L (Normal) Range: 0-32 [...] mg/dL (Abnormal) Range: 65-99 :03 LIPID PANEL (80880) Comments: PATIENT WAS FASTINGPERFORMED BY: VOLITIONRX6370 RyanSolarPrintL[facility] [id number] VLDL Cholesterol Jyoti VLDLCH mg/dL (Normal) Range: 5-40 Comments: The calculation for the VLDL cholesterol is not valid whentriglyceride level is >400 mg/dL.Triglyceride result indicated is too high for an accurate LDLcholesterol estimation. HDL Cholesterol 26 mg/dL (Abnormal) Triglycerides 542 mg/dL (Abnormal) Range: 0-149 Cholesterol, Total 183 mg/dL (Normal) Range: 100-199 22-Ady-18671:03 CBC W/AUTO DIFF WBC (27004) Comments: PATIENT WAS FASTINGPERFORMED BY: [facility]CoMor[facility] CenterYwdvdj264[address] [facility] [id number] Immature Grans (Abs) 0.0 {x10E3/uL} (Normal) Range: [...] 3.77-5.28 WBC 8.1 {x10E3/uL} (Normal) Range: 3.4-10.8 36-Bla-128745:48 HgA1C , Office (36403) HgA1C , Office 8.0 % (Abnormal) Range: 4.6 - 7.1 :48 Blood Glucose , Office (80571) Blood Glucose , Office 166 (Normal) :06 CALCIFEDIOL (68557) Comments: PATIENT NOT FASTINGPERFORMED BY: [facility]CoMor[facility] CenterKsbdcj7022 [facility] [id number] Vitamin D, 25-Hydroxy 51.1 ng/mL (Normal) Range: 30.0-100.0 Comments: Vitamin D deficiency has been defined by the [place] ofKind[facility] Hospital Daytoncine and an Endocrine Society practice guideline as alevel of serum 25-OH vitamin D less than 20 ng/mL (1,2).The Endocrine Society went on to further define vitamin Dinsufficiency as a level between 21 and 29 ng/mL (2).1. IOM ([place] of Medicine). 2010. Dietary reference intakes for calcium and D. [place]: The National Academies Press.2. Bobo MF, Estrellita NC, Maddi CALIX, et al. Evaluation, treatment, and prevention of vitamin D deficiency: an Endocrine Society clinical practice guideline. JCEM. 2010; 96(7):1911-30. :06 CBC, PLATELETS & AUT DIFF Comments: PATIENT NOT FASTINGPERFORMED BY: [facility]CoMor[facility] CenterUcaxdz4698 [facility] [address] [id number] (92334) Immature Grans (Abs) 0.0 {x10E3/uL} (Normal) Range: [...] (Normal) Range: 3.4-10.8 :36 HgA1C , Office (58143) HgA1C , Office 8.0 % (Abnormal) Range: 4.6 - 7.1 :36 Blood Glucose , Office (93596) Blood Glucose , Office 155 (Normal) :39 METABOLIC PANEL, COMPREHENSIVE Comments: PATIENT WAS FASTINGPERFORMED BY: [facility]Co[facility] CenterBxuejz7453 [facility] [id number] (62848) ALT (SGPT) 6 [iU]/L (Normal) Range: 0-32 [...] Glucose, Serum 200 mg/dL (Abnormal) Range: 65-99 99-Nxm-59370:39 LIPID PANEL (89851) Comments: PATIENT WAS FASTINGPERFORMED BY: [facility] [id number] LDL/HDL Ratio 3.6 {ratio_units} (Abnormal) Range: 0.0-3.2 Comments: LDL/HDL Ratio Men Women 1/2 Avg.Risk 1.0 1.5 Av g.Risk 3.6 3.2 2X Avg.Risk 6.2 5.0 3X Avg.Risk 8.0 6.1 LDL Cholesterol Calc 104 mg/dL (Abnormal) Range: 0-99 VLDL Cholesterol Jyoti 72 mg/dL (Abnormal) Range: 5-40 HDL Cholesterol 29 mg/dL (Abnormal) Triglycerides 359 mg/dL (Abnormal) Range: 0-149 Cholesterol, Total 205 mg/dL (Abnormal) Range: 100-199 49-Oaz-271874:49 Blood Glucose , Office (24057) Blood Glucose , Office 159 (Normal) :49 HgA1C , Office (48010) HgA1C , Office 8.1 % (Abnormal) Range: 4.6 - 7.1 92-Rjo-479392:03 VITAMIN B-12 (CYANOCOBALAMIN) Comments: PATIENT WAS FASTINGPERFORMED BY: [employer]in [place] [id number] (63186) Vitamin B12 319 pg/mL (Normal) Range: 211-946 97-Ldk-268383:03 LIPID PANEL (28821) Comments: PATIENT WAS FASTINGPERFORMED BY: [facility] [id number] VLDL Cholesterol Jyoti VLDLCH mg/dL (Normal) Range: [...] Cholesterol, Total 192 mg/dL (Normal) Range: 100-199 28-Ysq-913513:03 Vitamin D Hydroxy (34860) Comments: PATIENT WAS FASTINGPERFORMED BY: [facility] [id number] Vitamin D, 25-Hydroxy 21.1 ng/mL (Abnormal) Range: 30.0-100.0 Comments: Vitamin D deficiency has been defined by the [place] ofMedicine and an Endocrine Society practice guideline as alevel of serum 25-OH vitamin D less than 20 ng/mL (1,2).The Endocrine Society went on to further define vitamin Dinsufficiency as a level between 21 and 29 ng/mL (2).1. IOM ([place] of Medicine). 2010. Dietary reference intakes for calcium and D. [place]: The National Academies Press.2. Bobo MF, Estrellita STOCKTON, Maddi CALIX, et al. Evaluation, treatment, and prevention of vitamin D deficiency: an Endocrine Society clinical practice guideline. JCEM. 2010; 96(7): 1911-30.; ADDENDA: non-emergent till apt next week 92-Sdn-161078:03 MICROALBUMIN: CREATININE RATIO Comments: PATIENT WAS FASTINGPERFORMED BY: [facility] [id number] (09438) AND (24645) Microalb/Creat Ratio 26.1 {mg/g_creat} (Normal) Range: 0.0-30.0 Microalbumin, Urine 20.0 ug/mL (Normal) Creatinine, Urine 76.5 mg/dL (Normal) 82-Mht-846229:03 CBC W/AUTO DIFF WBC Comments: PATIENT WAS FASTINGPERFORMED BY: BELKYS [employer] [facility] [id number] Information: [id number] (77022) Immature Grans (Abs) 0.0 {x10E3/uL} (Normal) Range: [...] 3.77-5.28 WBC 8.1 {x10E3/uL} (Normal) Range: 3.4-10.8 77-Hta-310906:03 METABOLIC PANEL, COMPREHENSIVE Comments: PATIENT WAS FASTINGPERFORMED BY: [employer] [facility] [place] [id number] (47418) ALT (SGPT) 7 [iU]/L (Normal) Range: 0-32 [...] (Abnormal) Range: 65-99 17-Apr-20169:53 Vitamin D Hydroxy (17287) Comments: PATIENT WAS FASTINGPERFORMED BY: BELKYS [facility] [address]swuho[address] [id number] Vitamin D, 25-Hydroxy 25.5 ng/mL (Abnormal) Range: 30.0-100.0 Comments: Vitamin D deficiency has been defined by the [place] ofMedicine and an Endocrine Society practice guideline as alevel of serum 25-OH vitamin D less than 20 ng/mL (1,2).The Endocrine Society went on to further define vitamin Dinsufficiency as a level between 21 and 29 ng/mL (2).1. IOM ([place] of Medicine). 2010. Dietary reference intakes for calcium and D. [place]: The National Academies Press.2. Bobo MF, Estrellita STOCKTON, Maddi CALIX, et al. Evaluation, treatment, and prevention of vitamin D deficiency: an Endocrine Society clinical practice guideline. JCEM. 2010; 96(7):1911-30. :53 LIPID PANEL (98063) Comments: PATIENT WAS FASTINGPERFORMED BY: DGTS[address] [facility] [address] [id number] LDL/HDL Ratio 3.7 {ratio_units} (Abnormal) Range: 0.0-3.2 [...] PANEL, COMPREHENSIVE Comments: PATIENT WAS FASTINGPERFORMED BY: [employer] Phyniz[address] [facility] [id number] (27434) ALT (SGPT) 5 [iU]/L (Normal) Range: 0-32 [...] mg/dL (Abnormal) Range: 65-99 :34 HGB A1C (21051) Comments: PATIENT WAS FASTINGPERFORMED BY: [employer] [facility] [id number] Hemoglobin A1c 8.9 % (Abnormal) Range: 4.8-5.6 Comments: . Pre-diabetes: 5.7 - 6.4 Diabetes: >6.4 Glycemic control for adults with diabetes: <7.0 :11 VITAMIN B-12 (CYANOCOBALAMIN) Comments: B12lot:5200exp:06/26site:lt deltroute:Romeose:chilo Camargo; PATIENT WAS FASTINGPERFORMED BY: LabPure life renalMorristown Medical CenterMsqyjv2898 [facility] [id number] (04851) Vitamin B12 301 pg/mL (Normal) Range: 211-946 :11 Vitamin D Hydroxy (22444) Comments: PATIENT WAS FASTINGPERFORMED BY: Snap FitnessCedar County Memorial HospitalTkerms0758 [facility] [id number] Vitamin D, 25-Hydroxy 20.3 ng/mL (Abnormal) Range: 30.0-100.0 Comments: Vitamin D deficiency has been defined by the [place] ofMedicine and an Endocrine Society practice guideline as alevel of serum 25-OH vitamin D less than 20 ng/mL (1,2).The Endocrine Society went on to further define vitamin Dinsufficiency as a level between 21 and 29 ng/mL (2).1. IOM ([place] of Medicine). 2010. Dietary reference intakes for calcium and D. [place]: The National Academies Press.2. Bobo MF, Estrellita STOCKTON, Maddi CALIX, et al. Evaluation, treatment, and prevention of vitamin D deficiency: an Endocrine Society clinical practice guideline. JCEM. 2010; 96(7):1911-30. 28-Imr-92421:11 METABOLIC PANEL, Comments: PATIENT WAS FASTINGPERFORMED BY: NextPrinciplesNor-Lea General HospitalGxwnnl2905 [facility] [id number] Information: [id number] COMPREHENSIVE (72998) ALT (SGPT) 6 [iU]/L (Normal) Range: 0-32 [...] mg/dL (Abnormal) Range: 65-99 :11 LIPID PANEL (28867) Comments: PATIENT WAS FASTINGPERFORMED BY: [facility] [id number]; will review on 07/04 LDL/HDL Ratio 4.0 [...] mg/dL (Abnormal) Range: 100-199 :11 HGB A1C (43775) Comments: PATIENT WAS FASTINGPERFORMED BY: [employer] Ryan SubmittableFormerly [facility] [id number] Hemoglobin A1c 8.5 % (Abnormal) Range: 4.8-5.6 Comments: . Pre-diabetes: 5.7 - 6.4 Diabetes: >6.4 Glycemic control for adults with diabetes: <7.0 :16 Vitamin D Hydroxy (14820) Comments: PATIENT WAS FASTINGPERFORMED BY: [employer] Tandem TechnologiesL[facility] [id number] Vitamin D, 25-Hydroxy 21.3 ng/mL (Abnormal) Range: 30.0-100.0 Comments: Vitamin D deficiency has been defined by the [place]ek ofMedicine and an Endocrine Society practice guideline as alevel of serum 25-OH vitamin D less than 20 ng/mL (1,2).The Endocrine Society went on to further define vitamin Dinsufficiency as a level between 21 and 29 ng/mL (2).1. IOM ([place] of Medicine). 2010. Dietary reference intakes for calcium and D. [place]: The National Academies Press.2. Bobo MF, Estrellita STOCKTON, Maddi CALIX, et al. Evaluation, treatment, and prevention of vitamin D deficiency: an Endocrine Society clinical practice guideline. JCEM. 2010; 96(7):1911-30. :16 VITAMIN B-12 (CYANOCOBALAMIN) Comments: PATIENT WAS FASTINGPERFORMED BY: [facility] [employer] [facility] [id number] (99140) Vitamin B12 283 pg/mL (Normal) Range: 211-946 :16 CBC W/AUTO DIFF WBC Comments: PATIENT WAS FASTINGPERFORMED BY: [facility] Yfxjdt[address] [facility] [id number] Information: [id number] (05301) Immature Grans (Abs) 0.0 {x10E3/uL} (Normal) Range: [...] {x10E3/uL} (Normal) Range: 3.4-10.8 :16 LIPID PANEL (78710) Comments: PATIENT WAS FASTINGPERFORMED BY: [facility] [id number] VLDL Cholesterol Jyoti VLDLCH mg/dL (Normal) Range: [...] Cholesterol, Total 168 mg/dL (Normal) Range: 100-199 46-Wkb-626849:49 HGB A1C (58306) Comments: PATIENT NOT FASTINGPERFORMED BY: [employer] [facility] [id number] Information: [id number], [id number] Hemoglobin A1c 8.1 % (Abnormal) Range: 4.8-5.6 Comments: . Pre-diabetes: 5.7 - 6.4 Diabetes: >6.4 Glycemic control for adults with diabetes: <7.0 :30 VITAMIN B-12 (CYANOCOBALAMIN) Comments: PATIENT WAS FASTINGPERFORMED BY: Source MDx RyanKeystone RV CompanyFormerly [facility] [id number] (09303) Vitamin B12 325 pg/mL (Normal) Range: 211-946 :30 CBC (AUTO) (59113) Comments: PATIENT WAS FASTINGPERFORMED BY: [facility] Lvxfuo5767 [address] [facility] [id number] Platelets 309 {x10E3/uL} (Normal) Range: 150-379 RDW 14.8 % (Normal) Range: 12.3-15.4 MCHC 31.1 g/dL (Abnormal) Range: 31.5-35.7 MCH 25.6 pg (Abnormal) Range: 26.6-33.0 MCV 82 fL (Normal) Range: 79-97 Hematocrit 39.2 % (Normal) Range: 34.0-46.6 Hemoglobin 12.2 g/dL (Normal) Range: 11.1-15.9 RBC 4.77 {x10E6/uL} (Normal) Range: 3.77-5.28 WBC 10.9 {x10E3/uL} (Abnormal) Range: 3.4-10.8 :30 Vitamin D Hydroxy (93976) Comments: PATIENT WAS FASTINGPERFORMED BY: [facility] Dykmpk5[address] [facility] [id number] Vitamin D, 25-Hydroxy 19.9 ng/mL (Abnormal) Range: 30.0-100.0 Comments: Vitamin D deficiency has been defined by the [place] ofMedicine and an Endocrine Society practice guideline as alevel of serum 25-OH vitamin D less than 20 ng/mL (1,2).The Endocrine Society went on to further define vitamin Dinsufficiency as a level between 21 and 29 ng/mL (2).1. IOM ([place] of Medicine). 2010. Dietary reference intakes for calcium and D. [place]: The National Academies Press.2. Bobo MF, Estrellita NC, Maddi CALIX, et al. Evaluation, treatment, and prevention of vitamin D deficiency: an Endocrine Society clinical practice guideline. JCEM. 2010; 96(7): 1911-30.; ADDENDA: non-emergent till tomorrows apt :30 LIPID PANEL (14351) Comments: PATIENT WAS FASTINGPERFORMED BY: [facility] Roqzxe1589 [facility] [id number] VLDL Cholesterol Jyoti VLDLCH mg/dL (Normal) Range: [...] CREATININE RATIO Comments: PATIENT WAS FASTINGPERFORMED BY: [facility]ipiMorristown Medical CenterIwrhrb2830 [facility] [id number] (21206) AND (83934) Microalb/Creat Ratio 190.8 {mg/g_creat} (Abnormal) Range: 0.0-30.0 Microalbumin, Urine 66.6 ug/mL (Abnormal) Range: 0.0-17.0 Creatinine, Urine 34.9 mg/dL (Normal) Range: 15.0-278.0 :30 METABOLIC PANEL, Comments: PATIENT WAS FASTINGPERFORMED BY: [facility]ipiMorristown Medical CenterWrheot4[address] [facility] [id number] Information: [id number] COMPREHENSIVE (91576) ALT (SGPT) 6 [iU]/L (Normal) Range: 0-32 [...] (Abnormal) Range: 65-99 :59 Vitamin D Hydroxy (72369) Comments: PATIENT NOT FASTINGPERFORMED BY: [facility] Ixqwlq4563 [facility] [id number]; [address] Vitamin D, 25-Hydroxy 21.4 ng/mL (Abnormal) Range: 30.0-100.0 Comments: Vitamin D deficiency has been defined by the [place] ofKindred Hospital Daytoncine and an Endocrine Society practice guideline as alevel of serum 25-OH vitamin D less than 20 ng/mL (1,2).The Endocrine Society went on to further define vitamin Dinsufficiency as a level between 21 and 29 ng/mL (2).1. IOM ([place] of Medicine). 2010. Dietary reference intakes for calcium and D. [place]: The National Academies Press.2. Bobo MF, Estrellita NC, Maddi CALIX, et al. Evaluation, treatment, and prevention of vitamin D deficiency: an Endocrine Society clinical practice guideline. JCEM. 2010; 96(7):1911-30. :59 LIPID PANEL (47605) Comments: PATIENT NOT FASTINGPERFORMED BY: [facility] Wmtmlb7490 [facility] [id number] VLDL Cholesterol Jyoti VLDLCH mg/dL (Normal) Range: [...] B-12 (CYANOCOBALAMIN) Comments: PATIENT NOT FASTINGPERFORMED BY: [facility]Corewell [facility] [facility] [id number] (29729) Vitamin B12 500 pg/mL (Normal) Range: 211-946 :59 CBC W/AUTO DIFF WBC Comments: PATIENT NOT FASTINGPERFORMED BY: LabCoMorristown Medical CenterTirqng3601 [facility] [id number] Information: [id number] (99568) Immature Grans (Abs) 0.0 {x10E3/uL} (Normal) Range: [...] COMPREHENSIVE Comments: PATIENT NOT FASTINGPERFORMED BY: [facility] Uruzwn2003 Ryan [facility] [id number] (64639) ALT (SGPT) 6 [iU]/L (Normal) Range: 0-32 [...] Range: 65-99 :38 Blood Glucose , Office (21628) Blood Glucose , Office 198 (Normal) :38 HgA1C , Office (99979) HgA1C , Office 9.1 % (Abnormal) Range: 4.6 - 7.1 86-Toq-28744:40 Allergens, Zone 8 Comments: Test(s) 424931-D794-NoZ Cockroach, Canadian; 335440-K036-EeD [place], White; 410198-D240-UwC Sweet Gumwere developed and had performance characteristicsdetermined by [facility]. These tests have not been c leared orapproved by the U.S. Food and Drug Administration. The FDAhas determined that such clearance or approval is notnecessary. These tests are used for clinical purposes.These should not be regarded as investigational or forresearch.Test performed at:[facility] Yinq[address]wn[address] [place], [place] [address] ; handled by jennifer VANG COMMENT Comment [...] NETTLE <0.10 kU/L (Normal) Comments: Performed at: [address] [id number] Director: Loco Ivey MD, Phone: [phone] SHEEP SORREL <0.10 kU/L (Normal) PIGWEED, ROUGH [...] kU/L (Normal) D PTERONYSSINUS <0.10 kU/L (Normal) 68-Thz-99031:40 Immunoglobulin E Comments: Test performed at:[facility] K[address]jet[address] [place] [address] 44691 IMMUNO E 53 {IU/mL} (Normal) Range: 0-100 Comments: Performed at: [facility] [id number] Director: Christopher Sullivan PhD, Phone: [phone]; ADDENDA: handled by jennifer 70-Evo-099910:26 HgA1C , Office (39287) HgA1C , Office 9.6 % (Abnormal) Range: 4.6 - 7.1 1-Sra-890139:31 BNP,B-Type NATRIURETIC PEPTIDE Comments: Test performed at:[facility] Nl[address]irou[address] [place] [address]691 B-TYPE ANDREW PEP 58.8 pg/mL (Normal) Range: 0-100 12-Sta-255654:04 IRON BINDING CAPACITY (TIBC) Comments: PERFORMED BY: CB LabCo[address] RoadDublin [place] [id number] (38277) Iron Saturation 11 % (Abnormal) Range: 15-55 Iron, Serum 47 ug/dL (Normal) Range: 35-155 UIBC 362 ug/dL (Normal) Range: 150-375 Iron Bind.Cap.(TIBC) 409 ug/dL (Normal) Range: 250-450 02-Gmx-369857:04 FERRITIN (01811) Comments: PERFORMED BY: [facility]Corewell [facility]6370 [facility] Centerblin [place] [id number] Ferritin, Serum 32 ng/mL (Normal) Range: 15-150 82-Dnn-510979:04 VITAMIN B-12 (CYANOCOBALAMIN) Comments: PERFORMED BY: [facility] [facility] [id number] (77264) Vitamin B12 304 pg/mL (Normal) Range: 211-946 :04 Vitamin D Hydroxy (19935) Comments: PERFORMED BY: [facility] [facility] [id number] Vitamin D, 25-Hydroxy 17.5 ng/mL (Abnormal) Range: 30.0-100.0 Comments: Vitamin D deficiency has been defined by the [place] ofMedicine and an Endocrine Society practice guideline as alevel of serum 25-OH vitamin D less than 20 ng/mL (1,2).The Endocrine Society went on to further define vitamin Dinsufficiency as a level between 21 and 29 ng/mL (2).1. IOM ([place] of Medicine). 2010. Dietary reference intakes for calcium and D. [place]: The National Academies Press.2. Bobo MF, Estrellita NC, Maddi CALIX, et al. Evaluation, treatment, and prevention of vitamin D deficiency: an Endocrine Society clinical practice guideline. JCEM. 2010; 96(7):1911-30. 91-Xxh-160077:04 LIPID PANEL (33946) Comments: PERFORMED BY: [facility]Core[facility]6370 [facility] CenterblTriStar [facility] [id number] VLDL Cholesterol Jyoti VLDLCH mg/dL (Normal) Range: [...] Range: 100-199 :04 CBC W/AUTO DIFF WBC (65404) Comments: PERFORMED BY: LabCoMorristown Medical CenterDvciqf5635 [facility] [id number] Immature Grans (Abs) 0.0 {x10E3/uL} (Normal) Range: [...] 3.77-5.28 WBC 7.3 {x10E3/uL} (Normal) Range: 3.4-10.8 46-Kfn-713738:04 METABOLIC PANEL, COMPREHENSIVE Comments: PERFORMED BY: BELKYS [facility] Sefnii99[address] [facility] [id number] (16757) ALT (SGPT) 5 [iU]/L (Normal) Range: 0-32 [...] Glucose, Serum 279 mg/dL (Abnormal) Range: 65-99 66-Hyq-809337:18 HgA1C , Office (06557) HgA1C , Office 8.3 % (Abnormal) Range: 4.6 - 7.1 38-Jja-097272:12 Rapid Flu (57760 x 2) Influenza A Ag negative (Normal) 56-Kxx-447274:43 BNTP (97969) Comments: PATIENT NOT FASTINGPERFORMED BY: LabCoMorristown Medical CenterIzrmda07[address] [facility] [id number] Information: [id number], [id number] B-Type Natriuretic Peptide 67.8 pg/mL (Normal) Range: [...] 126 mg/dLsuggests DIABETES MELLITUS per A.D.A. criteria. 88-Aml-812455:14 Blood Glucose , Office (50113) Blood Glucose , Office 112 (Normal) :14 HgA1C , Office (62768) HgA1C , Office 7.3 % (Abnormal) Range: 4.6 - 7.1 :45 WESTON Negative (Normal) Comments: Performed at: [address] Director: Nick Cali PhD, Phone: [phone] 63-Dyn-281398:45 CBCD ALC 1.65 {X10_3/ul} (Normal) Range: 0.83-4.51 [...] 40 - 59Strong positive >59Performed at: - LabCo[address] [id number] Director: Loco Ivey MD, Phone: [phone] CMP GAP 4 (Abnormal) Range: 5-15 [...] ng/mL (>250 nmol/L) :46 Vitamin D Hydroxy (72171) Comments: PATIENT WAS FASTINGPERFORMED BY: [employer] [place] [id number] Vitamin D, 25-Hydroxy 22.7 ng/mL (Abnormal) Range: 30.0-100.0 Comments: Vitamin D deficiency has been defined by the [place] ofMedicine and an Endocrine Society practice guideline as alevel of serum 25-OH vitamin D less than 20 ng/mL (1,2).The Endocrine Society went on to further define vitamin Dinsufficiency as a level between 21 and 29 ng/mL (2).1. IOM ([place] of Medicine). 2010. Dietary reference intakes for calcium and D. [place]: The National Academies Press.2. Bobo MF, Estrellita STOCKTON, Maddi CALIX, et al. Evaluation, treatment, and prevention of vitamin D deficiency: an Endocrine Society clinical practice guideline. JCEM. 2010; 96(7):1911-30. :46 MICROALBUMIN: CREATININE RATIO Comments: PATIENT WAS FASTINGPERFORMED BY: VOLITIONRX6370 [employer] Technologiesin [place] [id number] (36824) AND (64350) Microalb/Creat Ratio 37.1 {mg/g_creat} (Abnormal) Range: 0.0-30.0 Microalbumin, Urine 29.9 ug/mL (Abnormal) Range: 0.0-17.0 Creatinine, Urine 80.5 mg/dL (Normal) Range: 15.0-278.0 :46 METABOLIC PANEL, COMPREHENSIVE Comments: PATIENT WAS FASTINGPERFORMED BY: Source MDx [facility] [id number] (81726) ALT (SGPT) 7 [iU]/L (Normal) Range: 0-32 [...] mg/dL (Abnormal) Range: 65-99 :46 LIPID PANEL (39159) Comments: PATIENT WAS FASTINGPERFORMED BY: VOLITIONRX6[address] [facility] [id number] LDL/HDL Ratio 2.1 {ratio_units} (Normal) Range: 0.0-3.2 [...] Cholesterol, Total 177 mg/dL (Normal) Range: 100-199 98-Nyd-10667:46 CBC, PLATELETS & AUT DIFF Comments: PATIENT WAS FASTINGPERFORMED BY: LabCoMorristown Medical CenterVujmwg11[address] [facility] [id number] Information: [id number] (95560) Hematology Comments: Note: (Normal) Comments: Verified by [...] B-12 (CYANOCOBALAMIN) Comments: PATIENT WAS FASTINGPERFORMED BY: [facility] [employer] [facility] [id number] (76680) Vitamin B12 254 pg/mL (Normal) Range: 211-946 2-Rtm-771031:10 HgA1C , Office (79447) HgA1C , Office 6.8 % (Normal) Range: 4.6 - 7.1 2-Dun-202769:10 Blood Glucose , Office (00842) Blood Glucose , Office 146 (Normal) Comments: non-fasting :36 LIPID PANEL (22080) Comments: PATIENT WAS FASTINGPERFORMED BY: NextPrinciplesMorristown Medical CenterGvlecr8230 [facility] [id number] VLDL Cholesterol Jyoti VLDLCH mg/dL (Normal) Range: [...] MANUAL DIFF Comments: PATIENT WAS FASTINGPERFORMED BY: [facility]itnessCorewell [facility] [facility] [id number] Information: [id number] (21362) Immature Grans (Abs) 0.0 {x10E3/uL} (Normal) Range: [...] PANEL, COMPREHENSIVE Comments: PATIENT WAS FASTINGPERFORMED BY: LabCoMorristown Medical CenterIbmwrq2366 [facility] [id number] (79534) ALT (SGPT) 6 [iU]/L (Normal) Range: 0-32 [...] (Abnormal) Range: 65-99 :36 Vitamin D Hydroxy (24127) Comments: PATIENT WAS FASTINGPERFORMED BY: BELKYS [facility]Ex[facility] Arbfks2703 [facility] [id number] Vitamin D, 25-Hydroxy 17.5 ng/mL (Abnormal) Range: 30.0-100.0 Comments: Vitamin D deficiency has been defined by the [place] ofKindred Hospital Daytoncine and an Endocrine Society practice guideline as alevel of serum 25-OH vitamin D less than 20 ng/mL (1,2).The Endocrine Society went on to further define vitamin Dinsufficiency as a level between 21 and 29 ng/mL (2).1. IOM ([place] of Medicine). 2010. Dietary reference intakes for calcium and D. [place]: The National Academies Press.2. Bobo MF, Estrellita STOCKTON, Maddi CALIX, et al. Evaluation, treatment, and prevention of vitamin D deficiency: an Endocrine Society clinical practice guideline. JCEM. 2010; 96(7):1911-30. :36 VITAMIN B-12 (CYANOCOBALAMIN) Comments: PATIENT WAS FASTINGPERFORMED BY: BELKYS [facility] Relirn7718 Ryan RoadDublin [place] [id number] (17529) Vitamin B12 264 pg/mL (Normal) Range: 211-946 :36 IRON (77622) Comments: PATIENT WAS FASTINGPERFORMED BY: [facility] Sjqztw4369 Ryan RoadDublin [place] [id number] Iron, Serum 52 ug/dL (Normal) Range: 35-155 85-Bjq-781535:54 HgA1C , Office (30559) HgA1C , Office 7.1 % (Normal) Range: 4.6 - 7.1 :09 VITAMIN B-12 (CYANOCOBALAMIN) Comments: PATIENT WAS FASTINGPERFORMED BY: [facility] Nkshhz7766 Ryan RoadDublin [place] [id number] (32778) Vitamin B12 704 pg/mL (Normal) Range: 211-946 :09 Vitamin D Hydroxy (71306) Comments: PATIENT WAS FASTINGPERFORMED BY: [facility] Nyrrnv7589 Ryan RoadDublin [place] [id number] Vitamin D, 25-Hydroxy 21.8 ng/mL (Abnormal) Range: 30.0-100.0 Comments: Vitamin D deficiency has been defined by the [place] ofMedicine and an Endocrine Society practice guideline as alevel of serum 25-OH vitamin D less than 20 ng/mL (1,2).The Endocrine Society went on to further define vitamin Dinsufficiency as a level between 21 and 29 ng/mL (2).1. IOM ([place] of Medicine). 2010. Dietary reference intakes for calcium and D. [place]: The National Academies Press.2. Bobo MF, Estrellita NC, Maddi CALIX, et al. Evaluation, treatment, and prevention of vitamin D deficiency: an Endocrine Society clinical practice guideline. JCEM. 2010; 96(7):1911-30. :09 MICROALBUMIN: CREATININE RATIO Comments: PATIENT WAS FASTINGPERFORMED BY: [facility] Vunpgd9109 Ryan RoadDublin [place] [id number] (78479) AND (99500) Microalb/Creat Ratio 24.2 {mg/g_creat} (Normal) Range: 0.0-30.0 Microalbumin, Urine 37.1 ug/mL (Abnormal) Range: 0.0-17.0 Creatinine, Urine 153.6 mg/dL (Normal) Range: 15.0-278.0 :09 METABOLIC PANEL, COMPREHENSIVE Comments: PATIENT WAS FASTINGPERFORMED BY: [facility] [employer] [id number] (08567) ALT (SGPT) 9 [iU]/L (Normal) Range: 0-32 [...] MANUAL DIFF Comments: PATIENT WAS FASTINGPERFORMED BY: [employer] Ryan SubmittableFormerly [facility] [id number] Information: [id number] (57714) Immature Grans (Abs) 0.0 {x10E3/uL} (Normal) Range: [...] {x10E3/uL} (Normal) Range: 3.4-10.8 :09 LIPID PANEL (91720) Comments: PATIENT WAS FASTINGPERFORMED BY: LabCoMorristown Medical CenterVehqze0361 [facility] [id number] VLDL Cholesterol Jyoti VLDLCH mg/dL (Normal) Range: [...] Cholesterol, Total 173 mg/dL (Normal) Range: 100-199 2-Snb-901483:23 HgA1C , Office (67595) HgA1C , Office 7.2 % (Abnormal) Range: 4.6 - 7.1 49-Gxv-770366:08 FOOT MIN 3 VIEWS Radiology Report See [...] Babcock M.D.November 02, 2012 at 3:41:31 PM [id number] Signed GP/GP If you are the referring physician and would like to consult with theradiologist who provided this interpretation, please contact Imani Hayes at [phone]. If this radiologist is unavailable, youwill be directed to another radiologist to assist. If you are a patient with a question regarding this report, pleasecontactyour referring lisa mavisnora directly. Professional Interpretation Provided By: [employer], Phone , These documents contain legally protected [...] 11/02/12 1544 Sign by: John Babcock MD 73-Edh-205680:33 MICROALBUMIN: CREATININE RATIO Comments: PATIENT WAS FASTINGPERFORMED BY: NextPrinciplesMorristown Medical CenterPtcwzz4[address] [facility] [id number] (49344) AND (96250) Microalb/Creat Ratio 31.2 {mg/g_creat} (Abnormal) Range: 0.0-30.0 Microalbumin, Urine 44.7 ug/mL (Abnormal) Range: 0.0-17.0 Creatinine, Urine 143.3 mg/dL (Normal) Range: 15.0-278.0 61-Mak-692779:33 CBC WITH MANUAL DIFF Comments: PATIENT WAS FASTINGPERFORMED BY: [facility]itnessCorewell [facility] [facility] [address] [id number] Information: [id number] (07208) Immature Grans (Abs) 0.0 {x10E3/uL} (Normal) Range: [...] 3.77-5.28 WBC 6.9 {x10E3/uL} (Normal) Range: 3.4-10.8 30-Tjf-204047:33 METABOLIC PANEL, COMPREHENSIVE Comments: PATIENT WAS FASTINGPERFORMED BY: LabCoMorristown Medical CenterJmadoq2284 [facility] [id number] (67654) ALT (SGPT) 10 [iU]/L (Normal) Range: 0-32 [...] Glucose, Serum 158 mg/dL (Abnormal) Range: 65-99 78-Fxi-793983:33 VITAMIN B-12 (CYANOCOBALAMIN) Comments: PATIENT WAS FASTINGPERFORMED BY: [facility] [id number] (47958) Vitamin B12 >1999 pg/mL (Abnormal) Range: 211-946 80-Hzp-592513:33 IRON BINDING CAPACITY (TIBC) Comments: PATIENT WAS FASTINGPERFORMED BY: [facility] [id number] (64865) Iron Saturation 16 % (Normal) Range: 15-55 Iron, Serum 59 ug/dL (Normal) Range: 35-155 UIBC 315 ug/dL (Normal) Range: 150-375 Iron Bind.Cap.(TIBC) 374 ug/dL (Normal) Range: 250-450 11-Eff-257902:33 FERRITIN (78418) Comments: PATIENT WAS FASTINGPERFORMED BY: Snipi HeartWare InternationalLake [facility] [id number] Ferritin, Serum 29 ng/mL (Normal) Range: 15-150 54-Ima-103501:33 HEPATIC FUNCTION PANEL Comments: PATIENT WAS FASTINGPERFORMED BY: [employer] Systems RoadDublin [place] [id number] (15775) Bilirubin, Direct 0.12 mg/dL (Normal) Range: 0.00-0.40 06-Nhv-055569:33 LIPID PANEL (83256) Comments: PATIENT WAS FASTINGPERFORMED BY: [facility] [facility] [id number] VLDL Cholesterol Jyoti VLDLCH mg/dL (Normal) Range: [...] (Normal) Range: 100-199 :33 Vitamin D Hydroxy (39491) Comments: PATIENT WAS FASTINGPERFORMED BY: [facility]Core[facility] [facility] [address] [id number] Vitamin D, 25-Hydroxy 21.3 ng/mL (Abnormal) Range: 30.0-100.0 Comments: Vitamin D deficiency has been defined by the [place] ofMedicine and an Endocrine Society practice guideline as alevel of serum 25-OH vitamin D less than 20 ng/mL (1,2).The Endocrine Society went on to further define vitamin Dinsufficiency as a level between 21 and 29 ng/mL (2).1. IOM ([place] of Medicine). 2010. Dietary reference intakes for calcium and D. [place]: The National Academies Press.2. Bobo MF, Estrellita NC, Maddi CALIX, et al. Evaluation, treatment, and prevention of vitamin D deficiency: an Endocrine Society clinical practice guideline. JCEM. 2010; 96(7):1911-30. :22 HgA1C , Office (28333) HgA1C , Office 6.8 % (Normal) Range: [...] Babcock M.D.August 18, 2012 at 3:19:26 PM [id number] Signed GP/GP If you are the referring physician and would like to consult with theradiologist who provided this interpretation, please contact Imani Hayes at [phone]. If this radiologist is unavailable, youwill be directed to another radiologist to assist. If you are a patient with a question regarding this report, pleasecontactyour referring physician directly. Professional Interpretation Provided By: [employer], Phone , These documents contain legally protected [...] 08/18/12 1522 Sign by: John Babcock MD 5-Arq-584858:40 BILAT SCRN DIGITAL & CAD Radiology Report [...] Babcock M.D.August 18 3 at 1:37:33 PM [id number] Signed GP/GP If you are the referring physician and would like to consult with theradiologist who provided this interpretation, please contact Sunil louis M.D. at [phone]. If this radiologist is unavailable, youwill be directed to another radiologist to assist. If you are a patient with a question regarding this report, pleasecontactyour referr ing physician directly. Professional Interpretation Provided By: [employer], Phone , These documents contain legally protected [...] 08/18/12 1400 Sign by: John Babcock MD 1-Hnc-246428:36 VERT FX ASSESS/LAT BONE DEN(H) Radiology Report [...] http://www.iscd.org3. National Osteoporosis Founda tion http://www.nof.org Signed:John Babcokc M.D.August 20, 2012 at 2:14:56 PM [id number] Signed GP/GP If you are the referring physician and would like to consult with [facility] who provided this interpretation, please contact Imani Hayes at [phone]. If this radiologist is unavailable, youwill be directed to another radiologist to assist. If you are a clarice ent with a question regarding this report, pleasecontactyour referring physician directly. Professional Interpretation Provided By: [employer], Phone , These documents con tain legally [...] on 08/20/127 Sign by: John Babcock MD 12-Ein-34270:10 LIPID PANEL (70558) Comments: PATIENT WAS FASTINGPERFORMED BY: [facility] [facility] [id number] VLDL Cholesterol Jyoti VLDLCH mg/dL (Normal) Range: [...] Cholesterol, Total 183 mg/dL (Normal) Range: 100-199 86-Ycp-52568:10 METABOLIC PANEL, COMPREHENSIVE Comments: PATIENT WAS FASTINGPERFORMED BY: [facility] Hwelap[address] [facility] [address] [id number] (87048) ALT (SGPT) 5 [iU]/L (Normal) Range: 0-32 [...] Glucose, Serum 133 mg/dL (Abnormal) Range: 65-99 49-Ehf-25428:10 IRON BINDING CAPACITY (TIBC) Comments: PATIENT WAS FASTINGPERFORMED BY: [facility] Nynjuf2638 [facility] [id number] (22741) Iron Saturation 15 % (Normal) Range: 15-55 Iron, Serum 53 ug/dL (Normal) Range: 35-155 UIBC 308 ug/dL (Normal) Range: 150-375 Iron Bind.Cap.(TIBC) 361 ug/dL (Normal) Range: 250-450 :10 FERRITIN (94838) Comments: PATIENT WAS FASTINGPERFORMED BY: [facility] Xunhyl7[address] [facility] [id number] Ferritin, Serum 25 ng/mL (Normal) Range: 15-150 :10 VITAMIN B-12 (CYANOCOBALAMIN) Comments: PATIENT WAS FASTINGPERFORMED BY: [facility] Jjcuna24[address] [facility] [id number] (53485) Vitamin B12 258 pg/mL (Normal) Range: 211-946 34-Wxz-60372:10 CBC WITH MANUAL DIFF Comments: PATIENT WAS FASTINGPERFORMED BY: NextPrinciplesMorristown Medical CenterFcihtz9[address] [facility] [id number] Information: ADD [id number] AND DRAW FEE 99 3490 (71779) Immature Grans (Abs) 0.0 {x10E3/uL} (Normal) Range: [...] (Normal) Range: 4.0-10.5 :10 Vitamin D Hydroxy (23284) Comments: PATIENT WAS FASTINGPERFORMED BY: [facility] TechnologiesL[facility] [id number] Vitamin D, 25-Hydroxy 20.4 ng/mL (Abnormal) Range: 30.0-100.0 Comments: Vitamin D deficiency has been defined by the [place] ofMedicine and an Endocrine Society practice guideline as alevel of serum 25-OH vitamin D less than 20 ng/mL (1,2).The Endocrine Society went on to further define vitamin Dinsufficiency as a level between 21 and 29 ng/mL (2).1. IOM ([place] of Medicine). 2010. Dietary reference intakes for calcium and D. [place]: The National Academies Press.2. Bobo MF, Estrellita NC, Maddi CALIX, et al. Evaluation, treatment, and prevention of vitamin D deficiency: an Endocrine Society clinical practice guideline. JCEM. 2010; 96(7):1911-30. 2-Ndw-169891:08 IRON (72398) Comments: PATIENT WAS FASTINGPERFORMED BY: [employer] [facility] [id number] Iron, Serum 58 ug/dL (Normal) Range: 35-155 9-Prn-296920:08 FERRITIN (94804) Comments: PATIENT WAS FASTINGPERFORMED BY: [facility] Hylprc1916 [facility] Centerblin [place] [id number] Ferritin, Serum 25 ng/mL (Normal) Range: 13-150 9-Xok-568505:08 VITAMIN B-12 (CYANOCOBALAMIN) Comments: PATIENT WAS FASTINGPERFORMED BY: [facility] Wegjup3509 [facility] [place] [id number] (63037) Vitamin B12 390 pg/mL (Normal) Range: 211-946 9-Rks-660392:08 Vitamin D Hydroxy (76578) Comments: PATIENT WAS FASTINGPERFORMED BY: [facility] Lzzpfe4078 [facility] CenterblTriStar [facility] [id number] Vitamin D, 25-Hydroxy 25.3 ng/mL (Abnormal) Range: 30.0-100.0 Comments: Vitamin D deficiency has been defined by the [place] ofMedicine and an Endocrine Society practice guideline as alevel of serum 25-OH vitamin D less than 20 ng/mL (1,2).The Endocrine Society went on to further define vitamin Dinsufficiency as a level between 21 and 29 ng/mL (2).1. IOM ([place] of Medicine). 2010. Dietary reference intakes for calcium and D. [place]: The National Academies Press.2. Bobo MF, Estrellita NC, Maddi CALIX, et al. Evaluation, treatment, and prevention of vitamin D deficiency: an Endocrine Society clinical practice guideline. JCEM. 2010; 96(7):1911-30. 0-Ezc-579895:08 METABOLIC PANEL, COMPREHENSIVE Comments: PATIENT WAS FASTINGPERFORMED BY: [facility] Peyutq[address] [facility] [id number] (00021) ALT (SGPT) 6 [iU]/L (Normal) Range: 0-32 [...] Glucose, Serum 124 mg/dL (Abnormal) Range: 65-99 5-Kie-228328:08 CBC WITH MANUAL DIFF Comments: PATIENT WAS FASTINGPERFORMED BY: [facility]Co[facility] CenterJlfdly6471 [facility] [id number] Information: [id number] (61626) Immature Grans (Abs) 0.0 {x10E3/uL} (Normal) Range: [...] 3.77-5.28 WBC 8.2 {x10E3/uL} (Normal) Range: 4.0-10.5 2-Rbb-114925:08 LIPID PANEL (80814) Comments: PATIENT WAS FASTINGPERFORMED BY: [facility]Co[facility] CenterZipslx3820 [facility] [id number] VLDL Cholesterol Jyoti VLDLCH mg/dL (Normal) Range: [...] Cholesterol, Total 166 mg/dL (Normal) Range: 100-199 3-Eov-604786:56 HgA1C , Office (40139) HgA1C , Office 7.4 % (Abnormal) Range: 4.6 - 7.1 6-Myg-499707:56 Blood Glucose , Office (52624) Blood Glucose , Office 142 (Normal) 42-Wnl-541141:40 CBCMD RBCM NORM C+C {NORMAL} (Normal) EOS [...] 4.2-5.4 WBC 11.2 K/mm3 (Abnormal) Range: 4.4-11.0 01-Wgv-958145:40 CMP GAP 7 (Normal) Range: 5-15 CL [...] mg/dL suggests DIABETES MELLITUS per A.D.A. criteria. 69-Iob-01909:04 CHEST WITH CONTRAST Radiology Report See Note [...] Babcock M.D.November 07, 2011 at 1:33:21 PM [id number] Signed GP/GP If you ar e the referring physician and would like to consult with theradiologist who provided this interpretation, please contact Imani Hayes at [phone]. If this radiologist is unavailable, youw ill [...] 11/07/11 1339 by ITS IMPORTSign by John aBbcock MD on 11/07/11 1340 Sign by: John Babcock MD 76-Rsq-418792:41 Pathology Report Comments: PERFORMED BY: [employer] [facility] [place] Nqnc89561 [facility] [id number] BY: [employer] [facility] Pqefcgp75242 [facility] [id number] Information: [id number] See MATER Comments: Material submitted: .SHAVE BIOPSY [...] HALVES ARE SUBMITTEDIN TWO CASSETTES, A1 AND A2.[facility] .084106 56-Voo-497810:06 CBC WITH MANUAL DIFF Comments: PATIENT NOT FASTINGPERFORMED BY: [facility] Nymldr27[address] Ryan RoadFormerly [facility] [id number] Information: [id number] (11602) Immature Grans (Abs) 0.0 {x10E3/uL} (Normal) Range: [...] 3.77-5.28 WBC 7.9 {x10E3/uL} (Normal) Range: 4.0-10.5 70-Iye-389101:06 LDH (LD) (LACTATE DEHYDROGENASE) Comments: PATIENT NOT FASTINGPERFORMED BY: [facility] [facility] [id number] (78814) LDH 198 [iU]/L (Normal) Range: 0-214 33-Kxi-554892:06 IRON BINDING CAPACITY (TIBC) Comments: PATIENT NOT FASTINGPERFORMED BY: [facility] [facility] [id number] (17402) Iron Saturation 11 % (Abnormal) Range: 15-55 Iron, Serum 46 ug/dL (Normal) Range: 35-155 UIBC 389 ug/dL (Abnormal) Range: 150-375 Iron Bind.Cap.(TIBC) 435 ug/dL (Normal) Range: 250-450 :06 FERRITIN (42208) Comments: PATIENT NOT FASTINGPERFORMED BY: [facility] [facility] [id number] Ferritin, Serum 12 ng/mL (Abnormal) Range: 13-150 1-Qwa-057036:03 HgA1C , Office (66251) HgA1C , Office 7.1 % (Normal) Range: 4.6 - 7.1 :34 CBC WITH MANUAL DIFF (27773) Comments: PATIENT WAS FASTINGPERFORMED BY: [facility] [facility] [id number] Immature Grans (Abs) 0.0 {x10E3/uL} (Normal) Range: [...] 3.77-5.28 WBC 8.3 {x10E3/uL} (Normal) Range: 3.4-10.8 8-Adp-251730:11 FECAL OCCULT- Tubes sent home (80365) FECAL OCCULT HGB ASSAY, QUAL, 1-3 SIMULTANEOU positive (Normal) 9-Xeu-778470:30 HgA1C , Office (64977) HgA1C , Office 7.3 % (Abnormal) Range: [...] the presence of intrinsic factor blocking antibodies. 41-Ryq-691868:09 CBCMD MICRO RARE (Normal) ANISO RARE (Normal) [...] 76.8 mg/L (Normal) CREU 109.3 mg/dL (Normal) 31-Opb-334484:09 VITD 23.9 ng/mL (Abnormal) Comments: appt 05-14-11 Range: 30.0-100.0 Comments: Vitamin D deficiency has been defined by the [place] ofMedicine and an Endocrine Society practice guideline as alevel of serum 25-OH vitamin D less than 20 ng/mL (1,2).The Endocrine Society went on to further define vitamin Dinsufficiency as a level between 21 and 29 ng/mL (2).1. IOM ([place] of Medicine). 2010. Dietary reference intakes for calcium and D. [place]: The National Academies Press.2. Bobo MF, Estrellita NC, Maddi CALIX, et al. Evaluation, treatment, and prevention of vitamin D deficiency: an Endocrine Society clinical practice guideline. JCEM. 2010; 96(7): 1911-30.Performed at: [address] [id number] Director: Charisma Hamilton MD, Phone: [phone] 3-Xwa-687523:21 CHEST WITHOUT CONTRAST Radiology Report See Note [...] regarding this report, please jyoti edison felipe [id number] line @ Dictated on 02/15/11 1126 by Shirin Alarcon DOranscribed on 02/15/11 1733 by ITS IMPORTSign by Emery Alarcon DO on 02/15/11 1734 Sign by: Emery Alarcon DO 7-Ist-006201:30 HgA1C , Office (77309) HgA1C , Office 7.4 % (Abnormal) Range: 4.6 - 7.1 3-Pno-472233:30 Blood Glucose , Office (08759) Blood Glucose , Office 153 (Normal) 0-Ktd-691199:07 CHEST, PA AND LATERAL Radiology Report See [...] ANNAMARIE WOODWARD MD :01 HgA1C , Office (15008) HgA1C , Office 7.9 % (Abnormal) Range: 4.6 - 7.1 : Blood Glucose , Office (53960) Blood Glucose , Office 133 (Normal) :52 [...] CREAT 107.1 mg/dL (Normal) :52 VIT D,25 04179 19.0 ng/mL (Abnormal) Range: 32.0-100.0 Comments: Recent studies consider the lower limit of 32.0 ng/mL to helena threshold for optimal health.Sunday BETTENCOURT. J Nutr. 2004;135(2):317-22.Performed at: [place] [address] Director: Charisma Hamilton MD, Phone: [phone] :[phone] VITAMIN B12 447 pg/mL (Normal) Range: [...] TREJO on 04/05/10 0305 Sign by: MAYAIZABELKEYA 25-Zua-292292:02 DEXA BONE DENSITY STUDY (HP) Radiology Report See Note (Normal) Comments: CLINICAL:Female, 69 years old. The patient is postmenopausal. EXAMINATION:DUAL ENERGY X-RAY ABSORPTIOMETRY / DEXA. TECHNIQUE:Bone Mineral Density (BMD) measurements of lumbar spine and bila teralhipswer e obtained using a Vidimax scanner.. COMPARISON:Comparison is made with prior examination [...] by: John Babcock :28 HgA1C , Office (22843) HgA1C , Office 8.2 % (Abnormal) Range: 4.6 - 7.1 :28 Blood Glucose , Office (83279) Blood Glucose , Office 205 (Normal) :27 [...] CHOL 169 mg/dL (Normal) Comments: <200 mg/dL Kpaydndxp529-867 mg/dL Borderline>240 mg/dL High Risk HDL 24 [...] the presence of intrinsic factor blocking antibodies. 8-Jxw-015229:47 CHEST WITHOUT CONTRAST Radiology Report See Note (Normal) Comments: Exam Number: [id number] CT SCAN OF THE THORAX Multiple axial [...] unchanged as well. Reported By: JOHN BABCOCK 01-Wnp-860177:27 VITAMIN B-12 (CYANOCOBALAMIN) Comments: PATIENT NOT FASTINGPERFORMED BY: [facility] Iabjly4350 [facility] [id number] (39003) Vitamin B12 338 pg/mL (Normal) Range: 211-946 Comments: Please note reference interval change :27 Vitamin D Hydroxy (33948) Comments: PATIENT NOT FASTINGPERFORMED BY: [facility] Dcsjtf5426 [facility] [id number] Vitamin D, 25-Hydroxy 17.2 ng/mL (Abnormal) Range: 32.0-100.0 Comments: Recent studies consider the lower limit of 32.0 ng/mL to be athreshold for optimal health.Sunday BETTENCOURT. J Nutr. 2004;135(2):317-22. :27 CBC WITH MANUAL DIFF Comments: PATIENT NOT FASTINGPERFORMED BY: [facility] Aepsvp7[address] [facility] [id number] Information: [id number] (69369) Baso (Absolute) 0.0 {x10E3/uL} (Normal) Range: 0.0-0.2 [...] 3.80-5.10 WBC 7.3 {x10E3/uL} (Normal) Range: 4.0-10.5 02-Nbz-488693:27 METABOLIC PANEL, COMPREHENSIVE Comments: PATIENT NOT FASTINGPERFORMED BY: [facility]Co[facility] CenterHykvye6[address] [facility] [id number] (05529) ALT (SGPT) 7 [iU]/L (Normal) Range: 0-40 [...] Glucose, Serum 120 mg/dL (Abnormal) Range: 65-99 20-Tnv-076674:38 Blood Glucose , Office (54656) Blood Glucose , Office 133 (Normal) :57 [...] CHOL 186 mg/dL (Normal) Comments: <200 mg/dL Mctzuvwvt502-980 mg/dL Borderline>240 mg/dL High Risk :57 LIVER ALT 9 U/L (Abnormal) Range: 12-78 D BILI 0.10 mg/dL (Normal) Range: 0.00-0.30 T BILI 0.20 mg/dL (Normal) Range: 0.00-1.00 ALB 3.7 g/dL (Normal) Range: 3.4-5.0 ALK P 51 U/L (Normal) Range: 50-136 AST 6 U/L (Abnormal) Range: 15-37 T PROT 7.3 g/dL (Normal) Range: 6.4-8.2 52-Hyz-315249:17 KNEE,4 OR MORE VIEWS (MT) Radiology Report See Note (Normal) Comments: Exam Number: [id number] CLINICAL:Medial pain X-RAY EXAMINATION RIGHT KNEE TECHNIQUE: [...] Report See Note (Normal) Comments: Exam Number: [id number] NONCONTRAST CHEST CT Comparison is made with [...] difficile Toxins Negative (Normal) Comments: PERFORMED BY: [facility]arFormer[facility] [id number] :51 A+B, EIA :51 Ova + Parasite Exam Comments: PERFORMED BY: [facility]Former[facility] [id number] Ova + Parasite Exam Final report (Normal) Comments: These results were obtained using wet preparation(s) and trichromestained smear. This test does not include testing for Cryptosporidiumparvum, Cyclospora, or Microsporidia. Result 1 NOCP (Normal) Comments: No ova, cysts, or parasites seen. :51 Stool Culture Comments: Clinical Information: SRC:ST PERFORMED BY: [facility] [id number] Campylobacter Culture Final report (Normal) E coli Shiga Toxin EIA Negative (Normal) Result 1 NCI (Normal) Comments: No Campylobacter species isolated. Result 1 NSS (Normal) Comments: No Salmonella or Shigella recovered. Salmonella/Shigella Screen Final report (Normal) 43-Bmm-319675:51 White Blood Cells (WBC), Comments: PERFORMED BY: [facility] [facility] [id number] Stool Result 1 NWBC (Normal) Comments: No white blood cells seen. White Blood Cells (WBC), Final report (Normal) Comments: Reference Range: None Seen Stool :52 CBC With Differential/Platelet Comments: PATIENT WAS FASTINGPERFORMED BY: [facility] [facility] [id number] Baso (Absolute) 0.0 {x10E3/uL} (Normal) Range: 0.0-0.2 [...] Panel (14) Comments: PATIENT WAS FASTINGPERFORMED BY: [employer]70 [address] [facility] [id number] A/G Ratio 1.6 (Normal) Range: 1.1-2.5 Albumin, [...] With LDL/HDL Comments: PATIENT WAS FASTINGPERFORMED BY: [employer] [facility] [id number] Ratio Cholesterol, Total 135 mg/dL (Normal) Range: [...] pg/mL (Normal) Comments: PATIENT WAS FASTINGPERFORMED BY: [employer] [address] [facility] [id number] 0:52 Range: 211-911 Vitamin D, 25-Hydroxy 13.6 ng/mL Comments: PATIENT WAS FASTINGPERFORMED BY: [employer] Labshopkick[address] [facility] [id number] 0:52 (Abnormal) Range: 32.0-100.0 Comments: Recent studies consider the lower limit of 32.0 ng/mL to be athreshold for optimal health.Sunday BETT[place]OURT. J Nutr. 2004;135(2):317-22. :32 HgA1C , Office (29293) HgA1C , Office 6.9 % (Normal) Range: 4.6 - 7.1 :32 Blood Glucose , Office (92514) Blood Glucose , Office 179 (Normal) 54-Lcw-251690:25 ABDOMEN LIMITED US () Radiology Report See Note (Normal) Comments: Exam Number: [id number] CLINICAL:Abdominal pain. LIMITED ABDOMINAL ULTRASOUND COMPARISON:None. FINDINGS: [...] of cholecystitis. Reported By: HALIMA TURNER M.D. 8-Ewt-389167:35 Urinalysis, Office (48059) UA - BILIRUBIN Moderate (Normal) UA - [...] Panel (14) Comments: PATIENT NOT FASTINGPERFORMED BY: [facility]Co[facility] CenterTifxze10[address] [facility] [id number] A/G Ratio 1.3 (Normal) Range: 1.1-2.5 Albumin, [...] (7) Comments: PATIENT NOT FASTINGPERFORMED BY: [facility] Aqyfxr49[address] [facility] [id number] Bilirubin, Direct 0.17 mg/dL (Normal) Range: 0.00-0.40 [...] g/dL (Normal) Range: 6.4-8.2 :27 VIT D,25 44572 16.4 ng/mL (Abnormal) Comments: ORDERED LIPID,LIVER ALSO Range: 32.0-100.0 Comments: Recent studies consider the lower limit of 32.0 ng/mL to helena threshold for optimal health.Sunday BW. J Nutr. 2004;135(2):317-22.Performed At: [facility] [place], [place] [id number] 66-Wis-26306:27 VITAMIN B12 430 pg/mL (Normal) Comments: ORDERED LIPID,LIVER ALSO Range: 254-1320 58-Ddc-861193:01 BRAIN/HEAD W/WO CONTRAST Radiology Report See Note (Normal) Comments: Exam Number: [id number] CT OF THE HEAD WITH AND WITHOUT CONTRAST CNMBAKA34-azak-pnm woman who has had vague symptoms of [...] mg/dL (Normal) Range: 0.00-0.30 :51 VIT D,25 03054 6.3 ng/mL (Abnormal) Range: 32.0-100.0 Comments: Recent studies consider the lower limit of 32.0 ng/mL to helena threshold for optimal health.Sunday BETTENCOURT. J Nutr. 2004;135(2):317-22.Performed At: [address] [id number] :51 VITAMIN B12 301 pg/mL (Normal) Range: 211-911 :43 CHEST WITHOUT CONTRAST Radiology Report See Note (Normal) Comments: Exam Number: [id number] CLINICAL: Nodules CT CHEST WITHOUT CONTRAST COMPARISON:April [...] cardiopulmonary disease Reported By: RIO KAY M.D. 42-Csg-735903:13 HgA1C , Office (98056) HgA1C , Office 7.5 % (Abnormal) Range: 4.6 - 7.1 96-Hob-929484:13 Blood Glucose , Office (43102) Blood Glucose , Office 203 (Normal) Antiparietal Cell 2.2 {Units} Comments: PERFORMED BY: [employer] [id number] 0:04 Antibody (Normal) Range: 0.0-20.0 Comments: Negative 0.0 - 20.0 Equivocal 20.1 - 24.9 Positive >24.9 . Parietal Cell Antibodies are found in 90% of patients with pernicious anemia and 30% of first degree relatives with pernicious anemia. 28-Flr-531761:04 CBC With Differential/Platelet Comments: PERFORMED BY: [employer] [id number] Baso (Absolute) 0.0 {x10E3/uL} Range: 0.0-0.2 (Normal) [...] Factor Abs, Negative (Normal) Comments: PERFORMED BY: [employer] [address] [id number] 0:04 Serum Vitamin B12 472 pg/mL (Normal) Comments: PERFORMED BY: [employer] [address] [id number] 0:04 Range: 211-911 :32 Fecal Occult Blood , Office (05762) Fecal Occult Blood Negative (Normal) , Office Ferritin, Serum 21 ng/mL (Normal) Comments: PATIENT NOT FASTINGPERFORMED BY: [facility] [id number] :21 Range: 10-291 Folate (Folic >24.0 ng/mL (Normal) Comments: PATIENT NOT FASTINGPERFORMED BY: [facility] [id number] :21 Acid), Serum Comments: Indeterminate: 3.4 - 5.4 Deficient: <3.4 :21 Iron and TIBC Comments: PATIENT NOT FASTINGPERFORMED BY: [facility] [id number] Iron Bind.Cap.(TIBC) 377 ug/dL (Normal) Range: 250-450 Iron Saturation 13 % (Abnormal) Range: 15-55 Iron, Serum 49 ug/dL (Normal) Range: 35-155 UIBC 328 ug/dL (Normal) Range: 150-375 LDH 145 [iU]/L (Normal) Comments: PATIENT NOT FASTINGPERFORMED BY: [facility] [facility] [address] [id number] :21 Range: 100-250 Reticulocyte Count 2.1 % (Normal) Comments: PATIENT NOT FASTINGPERFORMED BY: [place] 6[address] [facility] [id number] :21 Range: 0.5-3.0 Vitamin B12 182 pg/mL Comments: PATIENT NOT FASTINGPERFORMED BY: [address] [id number] :21 (Abnormal) Range: 211-911 :33 HgA1C , Office (45017) Comments: done>Wf. HgA1C , Office 6.8 % (Normal) Range: 4.6 - 7.1 :33 Blood Glucose , Office (79226) Comments: done>Wf. Blood Glucose , Office 150 [...] 47-70 WBC 6.1 K/mm3 (Normal) Range: 4.4-11.0 57-Zbe-602577:06 LIPID Comments: SEND A COPY OF THE [...] mg/dL VLDL 54 mg/dL (Abnormal) Range: 5-40 50-Jlv-169160:06 LIVER Comments: SEND A COPY OF THE LIPID AND LIVER RESULTSONLY. JLG ALB 3.6 g/dL (Normal) Range: 3.4-5.0 ALK P 47 U/L (Abnormal) Range: 50-136 ALT 25 U/L (Abnormal) Range: 30-65 AST 14 U/L (Abnormal) Range: 15-37 D BILI 0.06 mg/dL (Normal) Range: 0.00-0.30 T BILI 0.31 mg/dL (Normal) Range: 0.00-1.00 T PROT 6.7 g/dL (Normal) Range: 6.4-8.2 20-Nbq-042752:27 BILAT SCRN DIGITAL & CAD Radiology Report See Note (Normal) Comments: Exam Number: [id number] MAMMOGRAM, BILATERAL SCREENING DIGITAL AND CAD HISTORYRoutine [...] kailash werealso examined with computer-aided detection software ([employer], [employer] Reported By: KEYA TREJO M.D. 40-Jma-347130:27 DEXA BONE DENSITY STUDY (HP) Radiology Report See Note (Normal) Comments: Exam Number: [id number] BONE DENSITOMETRY HISTORYPostmenopausal. TECHNIQUE Bone densitometry of the lumbar spine and left hip was performed. Thebest criteria for evaluation of osteoporosis is the T- value, whichrepresents the comparison of the patient's bone mass to an expectedpeak bone mass. For most patients, the mean T-value of L1 through L4is used to evaluate the lumbar spine. Based on the [facility] WorldHealth Organization classifications, the hip is evaluated [...] left hip. Reported By: KEYA TREJO M.D. 59-Nkp-839028:46 HgA1C , Office (60854) HgA1C , Office 6.7 % (Normal) Range: 4.6 - 7.1 99-Oqc-867626:46 Blood Glucose , Office (82121) Blood Glucose , Office 170 (Normal) :46 [...] Report See Note (Normal) Comments: Exam Number: [id number] RIGHT KNEE CLINICAL INFORMATIONKnee pain. Standing AP [...] Report See Note (Normal) Comments: Exam Number: [id number] CT CHEST NONCONTRAST CLINICAL STATEMENTFollow of lung [...] and esophagus. Reported By: RICHARD CANADA M.D. 78-Hxf-962135:33 HgA1C , Office (79207) HgA1C , Office 6.5 % (Normal) Range: 4.6 - 7.1 :33 Blood Glucose , Office (28695) Blood Glucose , Office 89 (Normal) :34 [...] Range: 6.4-8.2 :17 Blood Glucose , Office (85538) Blood Glucose , Office 175 (Normal) :41 [...] Report See Note (Normal) Comments: Exam Number: [id number] CT SCAN OF CHEST HISTORYCough. Consecutive axial [...] is suggested. Reported By: KEYA TREJO M.D. 2-Pfk-377707:45 HgA1C , Office (19361) Comments: [facility] HgA1C , Office 6.6 % (Normal) Range: 4.6 - 7.1 4-Jor-916231:45 Blood Glucose , Office (93730) Comments: [facility] Blood Glucose , Office 105 (Normal) [...] Report See Note (Normal) Comments: Exam Number: [id number] CHEST PA AND LATERAL STATEMENTCough and pneumonia. [...] CHIVO MONIQUE M.D. :41 HgA1C , Office (55114) HgA1C , Office 6.8 % (Normal) Range: 4.6 - 7.1 :41 Blood Glucose , Office (32673) Blood Glucose , Office 126 (Normal) 53-Ijx-792411:11 CBCD,SMEAR DIFF CELLS COUNTED 100 (Normal) EOS [...] 47-70 WBC 7.4 K/mm3 (Normal) Range: 4.4-11.0 25-Wme-455811:11 COMP METABOLIC A/G 1.1 {RATIO} (Normal) Range: [...] T PROT 7.1 g/dL (Normal) Range: 6.4-8.2 75-Ato-652600:11 COMPLETE UA BACTERIA 0 SEEN {/hpf} (Normal) [...] mg/dL VLDL 58 mg/dL (Abnormal) Range: 5-40 72-Bhv-237533:11 TSH 0.85 {uIU/mL} (Normal) Range: 0.34-4.82 :11 HgA1C , Office (64994) HgA1C , Office 6.7 % (Normal) Range: 4.6 - 7.1 :11 Blood Glucose , Office (69080) Blood Glucose , Office 153 (Normal) Plan of Care Name Dates Details Instructions Diabetes mellitus type II, controlled : Follow up in 3 months Indication: Diabetes mellitus type II, controlled Asthma : Reviewed Director Of [employer] Letter Indication: Asthma Coronary artery disease : Reviewed Director Of [employer] Letter Indication: Coronary artery disease Hypertensive heart disease without heart failure : HTN/CAD Red Flags Indication: Hypertensive heart disease without heart failure ATRIAL FIBRILLATION (Renamed from A-fib) : Reviewed Director Of [employer] Letter Indication: ATRIAL FIBRILLATION (Renamed from A-fib) Type 2 diabetes mellitus, uncontrolled : Follow up in 3 months Indication: Type 2 diabetes mellitus, uncontrolled Coronary artery disease : Reviewed Director Of [employer] Letter Indication: Coronary artery disease Hypertensive heart [...] heart failure Coronary artery disease : Reviewed Director Of [employer] Letter Indication: Coronary artery disease Diabetes mellitus [...] ATRIAL FIBRILLATION (Renamed from A-fib) : Reviewed Director Of [employer] Letter Indication: ATRIAL FIBRILLATION (Renamed from A-fib) [...] ATRIAL FIBRILLATION (Renamed from A-fib) : Reviewed Director Of [employer] Letter Indication: ATRIAL FIBRILLATION (Renamed from A-fib) Type 2 diabetes mellitus, uncontrolled : Follow up in 3 months Indication: Type 2 diabetes mellitus, uncontrolled Gout, arthritis : Reviewed Lab Indication: Gout, arthritis Asthma : Reviewed Director Of [employer] Letter Indication: Asthma Type 2 diabetes mellitus, uncontrolled : *Diabetes Education Indication: Type 2 diabetes mellitus, uncontrolled Coronary artery disease : Reviewed Director Of [employer] Letter Indication: Coronary artery disease Mixed dyslipidemia [...] Indication: Asthma Coronary artery disease : Reviewed Director Of [employer] Letter Indication: Coronary artery disease Hypertensive heart [...] meninges : Follow up on Friday with [facility] Indication: Benign neoplasm of cerebral meninges [...] : Follow up in 10 days with [facility] Indication: Cough Laryngitis : Laryngitis Education [...] pelvic and bimanual performed Planned Observations TSH (03267)Indication: Diabetes mellitus type II, controlled On: 15 Request URINALYSIS, W/ MICRO (64891)Indication: Diabetes mellitus type II, controlled On: :15 Request MICROALBUMIN: CREATININE RATIO (38800) AND (10363)Indication: Diabetes mellitus type II, controlled On: 2-Hkn-558548:15 Request METABOLIC PANEL, COMPREHENSIVE ([id number])Indication: Diabetes mellitus type II, controlled On: 5-Lwo-013259:15 Request CBC W/AUTO DIFF WBC (07081)Indication: Diabetes mellitus type II, controlled On: 0-Twv-182744:15 Request LIPOPROTEIN, BLD, BY NMR ([id number])Indication: Diabetes mellitus type II, controlled On: 1-Zty-257160:15 Request VITAMIN B-12 (CYANOCOBALAMIN) (08526)Indication: Other vitamin B12 deficiency anemia On: 8-Kry-054323:13 Request TSH ([id number])Indication: ATRIAL FIBRILLATION (Renamed from A-fib) On: 00-Opk-750482:16 Request URINALYSIS, W/ MICRO (64711)Indication: Diabetes mellitus type II, controlled On: 58-Yoj-753296:16 Request MICROALBUMIN: CREATININE RATIO (22351) AND (41430)Indication: Diabetes mellitus type II, controlled On: 24-Agt-591709:16 Request METABOLIC PANEL, COMPREHENSIVE (99398)Indication: Diabetes mellitus type II, controlled On: 62-Hne-631401:16 Request LIPOPROTEIN, BLD, BY NMR ([id number])Indication: Diabetes mellitus type II, controlled On: 81-Gsi-103137:16 Request LIPID PANEL (16302)Indication: Diabetes mellitus type II, controlled On: 87-Jzu-433742:16 Request CBC W/AUTO DIFF WBC (46050)Indication: Diabetes mellitus type II, controlled On: 06-Duy-063052:15 Request VITAMIN B-12 (CYANOCOBALAMIN) (63990)Indication: Other vitamin B12 deficiency anemia On: 5-Lmg-370427:50 Request TSH ([id number])Indication: ATRIAL FIBRILLATION (Renamed from A-fib) On: 3-Air-053021:50 Request URINALYSIS, W/ MICRO ([id number])Indication: Hypertensive heart disease without heart failure On: 9-Zkx-520542:49 Request MICROALBUMIN: CREATININE RATIO (45765) AND (25023)Indication: Hypertensive heart disease without heart failure On: 1-Lum-141415:49 Request METABOLIC PANEL, COMPREHENSIVE (68405)Indication: Hypertensive heart disease without heart failure On: 1-Vbc-580504:49 Request CBC W/AUTO DIFF WBC ([id number])Indication: Hypertensive heart disease without heart failure On: 2-Muh-207360:49 Request CALCIFEDIOL (47659)Indication: Vitamin D deficiency, unspecified On: 0-Tce-529680:49 Request LIPID PANEL (75763)Indication: Mixed dyslipidemia On: 1-Hev-612266:49 Request URINALYSIS, W/ MICRO (34726)Indication: Type 2 diabetes mellitus, uncontrolled On: 35-Pvh-733712:23 Request MICROALBUMIN: CREATININE RATIO ([id number]) AND (53930)Indication: Type 2 diabetes mellitus, uncontrolled On: 64-Mnx-821363:23 Request HEMOGLOBIN GLYCLATED (HGB A1C) (24573)Indication: Type 2 diabetes mellitus, uncontrolled On: 88-Yyt-776475:03 Request HgA1C , Office (79900)Indication: Type 2 diabetes mellitus, uncontrolled On: 63-Tbl-309376:46 Request Vitamin D Hydroxy (08235)Indication: Vitamin D deficiency, unspecified On: 87-Ojy-462680:16 Request VITAMIN B-12 (CYANOCOBALAMIN) (05962)Indication: Other vitamin B12 deficiency anemia On: 71-Myn-531640:16 Request CBC with auto diff (69743)Indication: Iron deficiency anemia, unspecified On: 04-Nnk-643624:15 Request LIPID PANEL (29115)Indication: Mixed dyslipidemia On: 17-Gro-479127:15 Request METABOLIC PANEL, COMPREHENSIVE (90491)Indication: Type 2 diabetes mellitus, uncontrolled On: 72-Pjt-669448:15 Request CBC W/AUTO DIFF WBC (01414)Indication: Iron deficiency anemia, unspecified On: 12-Lyq-320606:44 Request URINALYSIS, W/ MICRO (36077)Indication: Heart disease, hypertensive, malignant, without heart failure On: 54-Tbv-002322:44 Request METABOLIC PANEL, COMPREHENSIVE (74861)Indication: Heart disease, hypertensive, malignant, without heart failure On: 94-Ibe-661104:44 Request MICROALBUMIN: CREATININE RATIO (51832) AND (34624)Indication: Heart disease, hypertensive, malignant, without heart failure On: 24-Shc-847320:44 Request IRON ([id number])Indication: Iron deficiency anemia, unspecified On: 43-Rts-324513:44 Request CBC, Platelets & Auto Diff ([id number])Indication: SOB On: 4-Yvz-884544:09 Request Renal function Panel (23486)Indication: SOB On: 2-Hbf-873986:09 Request Vitamin D Hydroxy (42762)Indication: Vitamin D deficiency, unspecified On: 59-Wih-358894:04 Request VITAMIN B-12 (CYANOCOBALAMIN) (69064)Indication: Other vitamin B12 deficiency anemia On: 63-Tyr-319156:04 Request METABOLIC PANEL, COMPREHENSIVE (91382)Indication: Type 2 diabetes mellitus, uncontrolled On: 45-Wzd-217569:04 Request IRON (06064)Indication: Iron deficiency anemia, unspecified On: 05-Vau-517806:59 Request IRON (07292)Indication: Iron deficiency anemia, unspecified On: 34-Pat-468028:18 Request CBC WITH MANUAL DIFF ([id number])Indication: Iron deficiency anemia, unspecified On: 47-Elz-167297:43 Request METABOLIC PANEL, COMPREHENSIVE (02266)Indication: Hypertensive heart disease without heart failure On: 44-Rmt-369404:43 Request CBC with manual diff ([id number])Indication: Anemia On: :53 Request Comments: recheck in 3 months Ferritin (15620)Indication: Anemia On: :53 Request Iron Binding Capacity (TIBC) (32759)Indication: Anemia On: :53 Request Iron (29871)Indication: Anemia On: :53 Request LIPID PANEL (80279)Indication: Mixed dyslipidemia On: 49-Kra-806900:43 Request IRON (08173)Indication: Iron deficiency anemia, unspecified On: 91-Rct-166869:35 Request Vitamin D Hydroxy (80121)Indication: Vitamin D deficiency, unspecified On: 7-Wvc-049381:14 Request METABOLIC PANEL, COMPREHENSIVE (05461)Indication: Type 2 diabetes mellitus, uncontrolled On: 5-Prs-634298:13 Request IRON BINDING CAPACITY (TIBC) ([id number])Indication: Iron deficiency anemia, unspecified On: 2-Xuw-118325:10 Request FERRITIN (68339)Indication: Iron deficiency anemia, unspecified On: 2-Ueb-843476:10 Request IRON ([id number])Indication: Iron deficiency anemia, unspecified On: 5-Rdb-514361:10 Request MICROALBUMIN: CREATININE RATIO (50819) AND (85158)Indication: Type 2 diabetes mellitus, uncontrolled On: :58 Request METABOLIC PANEL, COMPREHENSIVE (22623)Indication: Type 2 diabetes mellitus, uncontrolled On: : Request CBC WITH MANUAL DIFF (76525)Indication: Type 2 diabetes mellitus, uncontrolled On: :58 Request Vitamin D Hydroxy (81091)Indication: Vitamin D deficiency, unspecified On: : Request VITAMIN B-12 (CYANOCOBALAMIN) (52567)Indication: Other vitamin B12 deficiency anemia On: :58 Request LIPID PANEL (70383)Indication: Mixed dyslipidemia On: : Request METABOLIC PANEL, COMPREHENSIVE (85676)Indication: Hypertension On: : Request CBC WITH MANUAL DIFF ([id number])Indication: Other vitamin B12 deficiency anemia On: : Request VITAMIN D, 1, 25-DIHYDROXY (44968)Indication: Vitamin D deficiency, unspecified On: : Request Vitamin D Hydroxy (48098)Indication: Vitamin D deficiency, unspecified On: :29 Request LIPID PANEL (99849)Indication: Mixed dyslipidemia On: :29 Request METABOLIC PANEL, COMPREHENSIVE (43082)Indication: Diabetes mellitus type II, controlled On: : Request CBC WITH MANUAL DIFF (49001)Indication: Other vitamin B12 deficiency anemia On: :29 Request MICROALBUMIN: CREATININE RATIO (14866) AND (52751)Indication: Diabetes mellitus type II, controlled On: :29 Request VITAMIN B-12 (CYANOCOBALAMIN) (07397)Indication: Other vitamin B12 deficiency anemia On: :29 Request HEMOGLOBIN GLYCLATED (HGB A1C) (85018)Indication: Diabetes mellitus type II, controlled On: :27 Request LIPID PANEL (33485)Indication: Mixed dyslipidemia On: :16 Request METABOLIC PANEL, COMPREHENSIVE (38629)Indication: Type 2 diabetes mellitus, uncontrolled On: :15 Request CBC WITH MANUAL DIFF (02506)Indication: Type 2 diabetes mellitus, uncontrolled On: :15 Request MICROALBUMIN: CREATININE RATIO (37462) AND (04307)Indication: Type 2 diabetes mellitus, uncontrolled On: :15 Request VITAMIN B-12 (CYANOCOBALAMIN) (39973)Indication: Other vitamin B12 deficiency anemia On: :15 Request Vitamin D Hydroxy (47107)Indication: Vitamin D deficiency, unspecified On: :15 Request HgA1C , Office (76285)Indication: Type 2 diabetes mellitus, uncontrolled On: 38-Mdh-720760:38 Request VITAMIN B-12 (CYANOCOBALAMIN) (70233)Indication: Other vitamin B12 deficiency anemia On: :55 Request LIPID PANEL (25458)Indication: Mixed dyslipidemia On: :55 Request METABOLIC PANEL, COMPREHENSIVE (09857)Indication: Heart disease, hypertensive, malignant, without heart failure On: :53 Request CBC WITH MANUAL DIFF (38901)Indication: Diverticulitis On: :53 Request LEUKOCYTE COUNT, FECAL (04764)Indication: Diarrhea On: :47 Request C.Difficile, Stool (91418)Indication: Diarrhea On: :47 Request BRO CULTURE-STOOL (84802)Indication: Diarrhea On: :47 Request Metabolic Panel, Comprehensive (98145)Indication: Abdominal pain, unspecified abdominal location On: :46 Request HEPATIC FUNCTION PANEL (67199)Indication: Abdominal pain, unspecified abdominal location On: :46 Request Bilirubin, Direct (53011)Indication: Abdominal pain, unspecified abdominal location On: :44 Request Bilirubin, total (94317)Indication: Abdominal pain, unspecified abdominal location On: :44 Request CBC WITH MANUAL DIFF (28070)Indication: Other vitamin B12 deficiency anemia On: 07-Gyw-720166:15 Request VITAMIN B-12 (CYANOCOBALAMIN) (45414)Indication: Other vitamin B12 deficiency anemia On: 94-Rer-418248:15 Request LIPID PANEL (45855)Indication: Mixed dyslipidemia On: 09-Cll-818617:14 Request METABOLIC PANEL, COMPREHENSIVE (52375)Indication: Heart disease, hypertensive, malignant, without heart failure On: 66-Dde-776677:14 Request Vitamin D Hydroxy (51150)Indication: Vitamin D deficiency, unspecified On: 49-Sdl-718630:06 Request CBC, PLATELETS & AUT DIFF (83989)Indication: Other vitamin B12 deficiency anemia On: :45 Request VITAMIN B-12 (CYANOCOBALAMIN) (91138)Indication: Other vitamin B12 deficiency anemia On: :45 Request HEPATIC FUNCTION PANEL (27921)Indication: Mixed dyslipidemia On: :44 Request LIPID PANEL (78034)Indication: Mixed dyslipidemia On: :44 Request Vitamin D Hydroxy (65045)Indication: vit d deficiency On: :33 Request Vitamin D Hydroxy (88031) On: 03-Rkg-937223:04 Request VITAMIN B-12 (CYANOCOBALAMIN) (89364)Indication: Other vitamin B12 deficiency anemia On: :04 Request CBC WITH MANUAL DIFF (23153)Indication: Heart disease, hypertensive, malignant, without heart failure On: 31-Tnv-465940:03 Request METABOLIC PANEL, COMPREHENSIVE (39720)Indication: Heart disease, hypertensive, malignant, without heart failure On: 05-Hql-594806:03 Request LIPOPROTEIN, BLD, BY NMR (83749)Indication: Mixed dyslipidemia On: 06-Puz-624054:01 Request HEPATIC FUNCTION PANEL ([id number])Indication: Mixed dyslipidemia On: 03-Kdz-014946: Request LIPID PANEL (37629)Indication: Mixed dyslipidemia On: 90-Ehu-036611: Request FOLIC ACID SERUM (57002)Indication: Anemia On: 28-Fsu-431238:06 Request FERRITIN (03742)Indication: Anemia On: 44-Gsp-431013:05 Request IRON (17613)Indication: Anemia On: 95-Txh-693159: Request IRON BINDING CAPACITY (TIBC) (52191)Indication: Anemia On: 08-Mns-711610:05 Request RETICULOCYTE COUNT MANUL (43310)Indication: Anemia On: 56-Dch-239545:05 Request LDH (LD) (LACTATE DEHYDROGENASE) (40837)Indication: Anemia On: 03-Mbv-406679:05 Request VITAMIN B-12 (CYANOCOBALAMIN) (94491)Indication: Anemia On: 69-Inw-684243:05 Request CBC WITH MANUAL DIFF (59741)Indication: Anemia On: :25 Request HEPATIC FUNCTION PANEL ([id number])Indication: Mixed dyslipidemia On: :25 Request LIPID PANEL (30958)Indication: Mixed dyslipidemia On: :25 Request MICROALBUMIN URINE QUANT (87446)Indication: Hypertension On: :42 Request TSH (85849)Indication: Hypertension On: :42 Request METABOLIC PANEL, COMPREHENSIVE (41215)Indication: Diabetes mellitus type II, controlled On: :42 Request HEPATIC FUNCTION PANEL (06641)Indication: Mixed dyslipidemia On: :42 Request LIPID PANEL (85802)Indication: Mixed dyslipidemia On: :42 Request CBC WITH MANUAL DIFF ([id number])Indication: Anemia On: 08-Wnf-23663:36 Request HEPATIC FUNCTION PANEL (20689)Indication: Mixed dyslipidemia On: 40-Bhf-08461:36 Request LIPID PANEL (31058)Indication: Mixed dyslipidemia On: :36 Request HgA1C , Office (23831)Indication: Diabetes mellitus type II, controlled On: :17 Request URINALYSIS W/O MICRO (95912)Indication: Hypertension On: 86-Uwj-559886:47 Request TSH ([id number])Indication: Hypertension On: 97-Vru-762210:47 Request METABOLIC PANEL, COMPREHENSIVE (04186)Indication: Hypertension On: 61-Vgr-737925:47 Request CBC WITH MANUAL DIFF ([id number])Indication: Hypertension On: 51-Djg-720691:47 Request Thin prep Pap (80700)Indication: well female - pap pelvic and bimanual performed On: 3-Qdb-657215:02 Request Planned Encounters Medical; 3 Month FU - On: 23-Mar-2018 10:00 [facility] Nia Uriostegui DO, DO, Kathleen Planned Procedures Flu Vaccine (Quadrivalent) On: 15-Dec-2017 Intent 29102Nd: Nia Uriostegui DO Comments: Lot #[id number]/2019Site-L dltd, IMDose prefilled syringegiven by: Susie Lopez LPN.VIS reviewed and ABN signed Nia Uriostegui DO B 12 Injection, 1000 mcg On: 15-Dec-2017 Intent (J3420)By: Nia Uriostegui DO Comments: 1 ml given rt dltd lot [id number] exp 05/30 Nia Uriostegui DO ELECTROCARDIOGRAM, COMPLETE On: 15-Dec-2017 Intent (ECG) (79216)By: Moody MCFARLAND, Comments: nsr !! yeah- no acute chg poor R wave progression NiaNia Chapa DO ELECTROCARDIOGRAM, COMPLETE On: 27-Aug-2017 Intent (ECG) (64153)By: Moody MCFARLAND, Comments: nsr - ivcd - pvc no acute chg Nia Reed DO B 12 Injection, 1000 mcg On: 28-May-2017 Intent (J3420)By: Nia Uriostegui DO Comments: vitamin b12 1000mcg injectionlot: [id number]:11/2018L DELT IMpt tolerated wellAD PARTS PICKER Nia Uriostegui DO B 12 Injection, 1000 mcg On: 12-Feb-2017 Intent (J3420)By: Nia Uriostegui DO Comments: 1 ml given lt arm lot [id number] exp 06/28 Nia Uriostegui DO B 12 Injection, 1000 mcg On: 29-Nov-2016 Intent (J3420)By: Nia Uriostegui DO Comments: b12 1000mcglot: [id number]: 03/2018L DELT IMpt tolerated wellAD PARTS PICKER Nia Uriostegui DO Flu Vaccine (Quadrivalent) On: 07-Nov-2016 Intent 12739Py: Nia Uriostegui DO Comments: Lot:[id number]:07/28/17Amt:0.5mlRoute:IMSite: L DltdGiven [...] DO ELECTROCARDIOGRAM, COMPLETE On: 24-Apr-2016 Intent (ECG) (87479)By: Moody MCFARLAND, Comments: sinus ana no acute chg Nia Reed DO Aerosol Treatment (31020)By: On: 27-Feb-2016 Intent Balbir Cramer MD Solu- Medrol Injection, 125mg On: 27-Feb-2016 Intent (J2930)By: Balbir Cramer MD Comments: lot [id number] 07/20182579232 mgleft gmIMas, PARTS PICKER Pulse Oximetry (90813)By: Bela On: 16-Jan-2016 Intent Balbir ROSAS Aerosol Treatment (33310)By: On: 16-Jan-2016 Intent Balbir Cramer MD Solu- Medrol Injection, 125mg On: 16-Jan-2016 Intent (J2930)By: Balbir Cramer MD Comments: Lot:[id number]:06/28Dose:125mgRoute:imSite:r hipGiven By:SASKIA signed CHEST XRAY, PA & LATERAL On: 16-Jan-2016 Intent (13626)By: Balbir Cramer MD Comments: ?PNA CAROTID ULTRASOUND (27859)By: On: 16-Jan-2016 Intent Balbir Cramer MD DEXA SCAN AXIAL SKELETON On: 16-Jan-2016 Intent (90978)By: Balbir Cramer MD MAMMOGRAM, SCREENING, BOTH On: 16-Jan-2016 Intent BREAST (17395)By: Balbir Cramer MD B 12 Injection, 1000 mcg On: 16-Jan-2016 Intent (J3420)By: Balbir Cramer MD Comments: lot: [id number]: ite/route: L del/IMamt: 1mLVIS signed when applicableCheMONSTER angeles B 12 Injection, 1000 mcg On: 11-Oct-2015 Intent (J3420)By: Balbir Cramer MD Flu Vaccine (Quadrivalent) On: 11-Oct-2015 Intent 31353Qy: Balbir Cramer MD Comments: Lot #[id number]/30/17ite-L dltd, IMDose prefilled syringegiven by:MARGRET, MONSTERVIS and ABN signed B 12 Injection, 1000 mcg On: 22-May-2015 Intent (J3420)By: Maylin Melendez DO B 12 Injection, 1000 mcg On: 17-Mar-2015 Intent (J3420)By: Maylin Melendez DO Comments: lot: [id number]: 10/27site/route: L del/IMamt: 1mLVIS signed when applicableMONSTER Molina PNEUM VAC ADLT/IMUMNOSPR, On: 30-Dec-2014 Intent SBC/INTRM (68983)By: Al MCFARLAND, Comments: PNUEMOlot:[id number]:1*13*17site:Rt deltoidroute:IMdose:.5mlDEMICK, SMA Maylin A B 12 Injection, 1000 mcg On: 30-Dec-2014 Intent (J3420)By: Maylin Melendez DO Comments: B12lot:[id number]:05/27site: LT deltoidROute: IMdose:1ml ADMINISTRATION OF INFLUENZA On: 21-Oct-2014 Intent VIRUS VACCINE (G0008)By: Maylin Melendez DO FLU VAC, SPLIT, >3 YEARS, On: 21-Oct-2014 Intent INTRAMUSC (37589)By: Al MCFARLAND, Comments: lot: [id number]: 08/10/15ite/route: L del/IMamt: 1mLVIS signed when applicableCheMONSTER angeles Maylin A MAMMOGRAM, SCREENING, BOTH On: 05-Oct-2014 Intent BREAST (47856)By: Maylin Melendez DO Cartoid DopplerBy: Al MCFARLAND, On: 05-Oct-2014 Intent Maylin A B 12 Injection, 1000 mcg On: 05-Oct-2014 Intent (J3420)By: Maylin Melendez DO Comments: Lot:[id number]:02*2016Route:IMSite:R deltoidDose: 1 mLgiven by: Adalgisa Sexton CMA B 12 Injection, 1000 mcg On: 01-Sep-2014 Intent (J3420)By: Adalgisa Sexton Comments: Lot:[id number]:11Route:IMSite:R deltoidDose: 1 mLgiven by: Adalgisa Sexton CMA B 12 Injection, 1000 mcg On: 26-May-2014 Intent (J3420)By: Adalgisa Sexton Comments: lot:[id number]:04/25route:IMdose:1MLSite:R deltoidgiven by: ANS B 12 Injection, 1000 mcg On: 11-Apr-2014 Intent (J3420)By: Kaci Gomez LPN Comments: lot: [id number]: 11/25Dose: 1,000 mcgSite: l dltdLocation; IMby: Solu -Medrol Injection, 125 mg On: 22-Feb-2014 Intent (J2930)By: Maylin Melendez DO Comments: [id number] 6.23608 mgleft KASIA Love Solu -Medrol Injection, 125 mg On: 31-Jan-2014 Intent (J2930)By: Sherrie Amor CNP Comments: lot [id number] 06/2016location R hiproute imgiven by - msmith VIS and/or ABN signed B 12 Injection, 1000 mcg On: 21-Jan-2014 Intent (J3420)By: Maylin Melendez DO Comments: lot [id number] 05/2015location L armroute imgiven by - msmith VIS and/or ABN signed Aerosol Treatment (70933)By: On: 14-Jan-2014 Intent Sherrie Amor CNP Radiology - ChestBy: Mt On: 14-Jan-2014 Intent Sherrie OJEDA Comments: stat call results to Dr Uriostegui is merchandiser seasonal EKG (62743)By: Mt OJEDA, On: 14-Jan-2014 Intent Sherrie Beck Comments: looks same as before No new ST -t wave changes ADMINISTRATION OF INFLUENZA On: 29-Nov-2013 Intent VIRUS VACCINE (G0008)By: Al Comments: Lot #[id number]-L dltd, IMDose prefilled syringegiven by:ms, MALUIS ANGEL and ABN signed Maylin MCFARLAND A FLU VAC, SPLIT, >3 YEARS, On: 29-Nov-2013 Intent INTRAMUSC (32542)By: Al MCFARLAND Maylin A B 12 Injection, 1000 mcg On: 29-Nov-2013 Intent (J3420)By: Al MCFARLAND Maylin A Comments: given, R dltd, Im - see flowsheet for lot and exp Radiology - Knee - Left - On: 06-Sep-2013 Intent Weight BearingBy: Al MCFARLAND Maylin A MAMMOGRAM, SCREENING, BOTH On: 18-Aug-2013 Intent BREAST (63055)By: Al DO Maylin A B 12 Injection, 1000 mcg On: 18-Aug-2013 Intent (J3420)By: Al MCFARLAND Maylin A Aerosol Treatment (66584)By: On: 16-Jul-2013 Intent Sherrie Amor CNP Aerosol Treatment (93776)By: On: 09-Jul-2013 Intent Sherrie Amor CNP Radiology [...] On: 27-Apr-2013 Intent (J3420)By: Visit, Nurse Comments: Lot:[id number]:12/25Dose:1mlRoute:IMSite:l armGiven By:SASKIA signed Aerosol Treatment (03948)By: On: 17-Feb-2013 Intent Nia Uriostegui DO, DO, Comments: more q/e less cough -- ok to use rescue inhaler prn not moer than bid with a fib -- if needs ansd worsen go to ER-- pulse reguar after treatment Nia Spirometry (61374)By: Moody On: 17-Feb-2013 Nia Amaya DO, DO, Comments: mild restriction -- stable Nia Solu- Medrol Injection, 125mg On: 17-Feb-2013 Intent (J2930)By: Nia Uriostegui DO Comments: lot: [id number]: ite/route: RGM/IMamt: 2mLVIS signed when applicableMONSTER Molina DO, Kathleen Eprescribed prescriptions On: 17-Feb-2013 Intent (G8553)By: Nia Uriostegui DO, DO, Kathleen EKG (61175)By: Maylin Melendez DO On: 12-Jan-2013 Intent A Comments: ekg showed normal sinus rhythym, left axis, no acute st/t wave changes Pelvic and Breast, Medicare On: 12-Jan-2013 Intent (G0101)By: Natalya Kohli Eprescribed prescriptions On: 18-Dec-2012 Intent (G8553)By: Maylin Melendez DO A FLU VAC, SPLIT, >3 YEARS, On: 18-Dec-2012 Intent INTRAMUSC (51057)By: Seun, Comments: Lot #:[id number] date:mount given:0.5mlRoute: IMSite given: L dltdVIS and ABN signedGiven by: CHILO Gillespie ADMINISTRATION OF INFLUENZA On: 18-Dec-2012 Intent VIRUS VACCINE (G0008)By: Natalya Kohli B 12 Injection, 1000 mcg On: 01-Dec-2012 Intent (J3420)By: Tracy Barnes Comments: Lot:[id number]:09/24Dose:1mlRoute:IMSite:l armGiven By:SASKIA signed Eprescribed prescriptions On: 02-Nov-2012 Intent (G8553)By: Sherrie Amor CNP Radiology - Foot - RightBy: On: 02-Nov-2012 Intent Sherrie Amor CNP B 12 Injection, 1000 mcg On: 19-Oct-2012 Intent (J3420)By: Tracy Barnes Comments: lot: [id number]: 09/23site/route: L deltoid/IMamt: 1mLVIS signed when applicableTracy WEB CONTENT EDITOR B 12 Injection, 1000 mcg On: 31-Aug-2012 Intent (J3420)By: Maylin Melendez DO Comments: Lot: [id number]: [id number]: 1000mcg/1mlRoute: IMSite: L deltoidGiven by: KASIA Samson Eprescribed prescriptions On: 31-Aug-2012 Intent (G8553)By: Natalya Kohli Nuclear Medicine - Other - On: 18-Aug-2012 Intent Vertebral AssessmentBy: Al Comments: Maylin Vogel DO DXA, BONE DENSITY, AXIAL On: 22-Jun-2012 Intent SKELETON (47032)By: Maylin Melendez DO MAMMOGRAM, SCREENING, BOTH On: 22-Jun-2012 Intent BREASTS (41774)By: Maylin Melendez DO B 12 Injection, 1000 mcg On: 15-Jun-2012 Intent (J3420)By: Tracy Barnes Comments: lot: [id number]: 12/24site/route: R deltoid/IMamt: 1,000mcgVIS signed when applicableChebridgette WEB CONTENT EDITOR Eprescribed prescriptions On: 17-Apr-2012 Intent (G8553)By: Natalya Kohli B 12 Injection, 1000 mcg On: 13-Apr-2012 Intent (J3420)By: Ramona Vásquez Comments: Lot:[id number]:01/23Dose:1mlRoute:IMSite:r armGiven By:SASKIA signed Eprescribed prescriptions On: 27-Mar-2012 Intent (G8553)By: Susie Lopez LPN FLU VAC, SPLIT, >3 YEARS, On: 17-Jan-2012 Intent INTRAMUSC (41484)By: Al MCFARLAND, Comments: Lot #[id number]/13Site-left deltoidgiven by: KASIA Fajardo ADMINISTRATION OF INFLUENZA On: 17-Jan-2012 Intent VIRUS VACCINE (G0008)By: Maylin Melendez DO Eprescribed prescriptions On: 17-Jan-2012 Intent (G8553)By: Natalya Kohli B 12 Injection, 1000 mcg On: 31-Dec-2011 Intent (J3420)By: Myalin Melendez DO Comments: Lot:[id number]:Dose:1mlRoute:IMSite:L armGiven By:JACQUIE Aerosol Treatment (66676)By: On: 24-Dec-2011 Intent Sherrie Amor CNP B [...] week and copy to dr clements EKG (67819)By: Maylin Melendez DO On: 17-Sep-2011 Intent A [...] MAMMOGRAM, SCREENING, BOTH On: 14-May-2011 Intent BREASTS (36316)By: Maylin Melendez DO A CT - ChestBy: [...] Intent (J2930)By: Sherrie Amor CNP Comments: Lot #[id number]-R hip, IMDose 125mg, 2 mlgiven by: Aerosol Treatment (66323)By: On: 24-Aug-2010 Intent Sherrie Amor CNP Pulse Oximetry (31537)By: Keesha On: 24-Aug-2010 Intent Ericka TELLEZ Spirometry (86053)By: Al On: 03-Aug-2010 Intent Maylin MCFARLAND Comments: good efffort and curve normal EKG (70146)By: Maylin Melendez DO On: 03-Aug-2010 Intent A Comments: ekg showed normal sinus rhythym, normal axis, no acute st/t wave changes poor r wave progression Radiology - Chest- PA and On: 03-Aug-2010 Intent LatBy: Maylin Melendez DO B 12 Injection, 1000 mcg On: 11-Jul-2010 Intent (J3420)By: Carol Stark LPN Comments: Lot #[id number]-12/11Site-left deltoidDose- 1 mlgiven by: Emili Stark LPN TD Injection , IM (07395)By: On: 20-Apr-2010 Intent Maylin Melendez DO Comments: Lot #[id number]-9/12Site-L dtd, IMDose prefilledgiven by:MARTITA B 12 Injection, 1000 mcg On: 04-Apr-2010 Intent (J3420)By: Carol Stark LPN Comments: Lot #[id number]-11/12Site-left deltoidDose- 1 mlgiven by:[facility] B 12 Injection, 1000 mcg On: 16-Jan-2010 Intent (J3420)By: Carol Reina LPN Comments: Lot #[id number]-8/11Site-R [id number] by: B 12 Injection, 1000 mcg On: 12-Dec-2009 Intent (J3420)By: Carol Stark LPN Comments: Lot #[id number]-/12Site-left deltoidDose- 1 mlgiven by:[facility] FLU VAC, SPLIT, >3 YEARS, On: 14-Nov-2009 Intent INTRAMUSC (60193)By: Natalya Kohli ADMINISTRATION OF INFLUENZA On: 14-Nov-2009 Intent VIRUS VACCINE (G0008)By: Comments: Lot #: [id number] date:mount given: 0.5 mlRoute: IMSite given: left deltoid Given by: GEOFF Hilton Jennifer DXA, BONE DENSITY, AXIAL On: 01-Nov-2009 Intent SKELETON (30206)By: Maylin Melendez DO MAMMOGRAM, SCREENING, BOTH On: 01-Nov-2009 Intent BREASTS ([id number])By: Maylin Melendez DO ADMINISTRATION OF PNEUMOCOCCAL On: 01-Nov-2009 Intent VACCINE ([id number])By: Maylin Melendez DO PNEUM VAC ADLT/IMUMNOSPR, On: 01-Nov-2009 Intent SBC/INTRM ([id number])By: Maylin Melendez DO A B 12 Injection, 1000 mcg On: 01-Nov-2009 Intent (J3420)By: Carol Reina LPN Comments: Lot #[id number]/[id number]-L dltdDose 30m/mlgiven by:KASIA GONZALES Pneumovax ([id number])By: Nuno On: 01-Nov-2009 Intent Carol PEDROZA Comments: Lot #[id number] 2010Site-R dltdDose 0.5mlgiven by:KASIA ANDERS B 12 Injection, 1000 mcg On: 25-Aug-2009 Intent (J3420)By: Carol Stark LPN Comments: Lot #[id number]-/Site-left deltoidDose- 1 mlgiven by:MAYRA B 12 Injection, 1000 mcg On: 13-Jul-2009 Intent (J3420)By: Monik Rushing Comments: Lot #[id number]-left [id number]/1mlgiven by Diana Rushing LPN CT - ChestBy: Maylin Melendez DO A On: 05-Jun-2009 Intent Spirometry ([id number])By: On: 05-Jun-2009 Intent Natalya Kohli Comments: goo deffort and curve mild small airway obst B 12 Injection, 1000 mcg On: 24-May-2009 Intent (J3420)By: Carlo Stark LPN Comments: Lot #[id number]-right deltoidDose- 1 mlgiven by:MAYRA Radiology - Knee - Right - On: 23-Dec-2008 Intent Weight BearingBy: Al MCFARLAND, Maylin A B 12 Injection, 1000 mcg On: 23-Dec-2008 Intent (J3420)By: Natalya Kohli Comments: Lot #:[id number] date:mount given:1mlRoute: IMSite given:left deltoidGiven by: CHILO Gillespie Aerosol Treatment ([id number])By: On: 08-Nov-2008 Intent Natalya Carter Comments: post treatment breath sounds clear bilat. pt. states feels breathing better. Pulse Oximetry ([id number])By: On: 08-Nov-2008 Intent Natalya Carter Comments: 95% [...] (J3420)By: Maylin Melendez DO Comments: Lot #[id number]/2009Site-left [id number]/1mlgiven by Diana Rushing LPN CT - Brain/HeadBy: Al MCFARLAND, On: 31-May-2008 Intent Maylin A EKG ([id number])By: Maylin Melendez DO On: 10-May-2008 Intent A Comments: ekg showed normal sinus rhythym, leftaxis, nonspecific t changges unchanged fromprevious Echo CompleteBy: Al MCFARLAND, On: 10-May-2008 Intent Maylin Sherman PFT - CompleteBy: Al MCFARLAND, On: 10-May-2008 Intent Maylin Sherman Pulse Oximetry ([id number])By: Al On: 10-May-2008 Intent Maylin MCFARLAND Comments: 95 Spirometry ([id number])By: Al On: 10-May-2008 Intent Maylin MCFARLAND Comments: good effort and curve mild restriction CT - ChestBy: Maylin Melendez DO On: 10-May-2008 Intent Bio Z (07136)By: Fast DO, On: 10-May-2008 Intent Maylin A [...] Intent (J3420)By: Monik Rushing Comments: Lot #[id number]/10Site-left [id number] by Diana Rushing LPN INJECTION, VITAMIN B-12 On: 03-Dec-2007 Intent CYANOCOBALAMIN, UP TO 1000 Comments: injection given in left deltoid, Ptolerated welllo # [id number] 5/10 MCG (Special Coverage Instructions Apply. See CIM: 45-4 and MCM: 2048) (J3420)By: Irais Monreal B 12 Injection, 1000 mcg On: 26-Nov-2007 Intent (J3420)By: Monik Rushing Comments: Lot #[id number]/10Site-left [id number] by Diana Rushing LPN INJECTION, VITAMIN B-12 On: 19-Nov-2007 Intent CYANOCOBALAMIN, UP TO 1000 MCG (Special Coverage Instructions Apply. See CIM: 45-4 and MCM: 2048) (J3420)By: Roberto Muhammad LPNsie INJECTION, VITAMIN B-12 On: 12-Nov-2007 Intent CYANOCOBALAMIN, UP TO 1000 MCG (Special Coverage Instructions Apply. See CIM: 45-4 and [facility]: 2049) ([id number])By: Adriane Muhammad LPN 12 Injection, 1000 mcg On: 05-Nov-2007 Intent (J3420)By: Adriane Muhammad LPN Cartoid DopplerBy: Al MCFARLAND, On: 30-Oct-2007 Intent Maylin A Spirometry ([id number])By: Al On: 30-Oct-2007 Intent DO Maylin A Comments: good effort and curve- some small airway decrease Radiology - Chest- PA and On: 30-Oct-2007 Intent LatBy: Al MCFARLAND Maylin A DXA, BONE DENSITY, AXIAL On: 24-Jul-2007 Intent SKELETON ([id number])By: Al MCFARLAND, Comments: postmenopausal without estrogen Maylin A MAMMOGRAM, SCREENING, BOTH On: 24-Jul-2007 Intent BREASTS ([id number])By: Maylin Melendez DO Radiology - Knee - Right - On: 15-Jun-2007 Intent Weight BearingBy: Al MCFARLAND, Comments: call results Maylin Sherman CT - ChestBy: Al MCFARLAND Maylin A On: 03-Apr-[address] - ChestBy: Al MCFARLAND Maylin A On: 15-Aug-2006 Intent Spirometry ([id number])By: Al On: 15-Aug-2006 Intent Maylin MCFARLAND A Comments: good effort and curve- mild obstruction EKG ([id number])By: Seun, On: 15-Aug-2006 Intent Natalya Comments: ekg showed normal sinus rhythym, normal axis, no acute st/t wave changes Radiology - ChestBy: LEE On: 25-Jun-2006 Intent PAMELA OJEDA Comments: PA and LAT Solu- Medrol Injection, 125mg On: 25-Jun-2006 Intent (J2930)By: PAMELA HOWARD CNP Pulse Oximetry ([id number])By: On: 25-Jun-2006 Intent PAMELA HOWARD CNP Comments: pt tolerated well. ins waiver signed Aerosol Treatment ([id number])By: On: 25-Jun-2006 Intent PAMELA HOWARD CNP Comments: ins wwaiver signed, pt tolerated well Spirometry ([id number])By: Al On: 14-May-2006 Intent Maylin MCFARLAND Comments: good effort and curve-mild obstruction ADMINISTRATION OF PNEUMOCOCCAL On: 11-Feb-2006 Intent VACCINE ([id number])By: ULYSSES Quiñones PNEUM VAC ADLT/IMUMNOSPR, On: 11-Feb-2006 Intent SBC/INTRM ([id number])By: ULYSSES Quiñones Bio Z ([id number])By: Al MCFARLAND, On: 11-Feb-2006 Intent Maylin A Comments: bp was 132/65- cardiac output, svr and thoracic fluid content is normal- will hold on med changes PNEUM VAC ADLT/IMUMNOSPR, On: 11-Feb-2006 Intent SBC/INTRM ([id number])By: Maylni Melendez DO ADMINISTRATION OF PNEUMOCOCCAL On: 11-Feb-2006 Intent VACCINE ([id number])By: Maylin Melendez DO MAMMOGRAM, SCREENING, BOTH On: 16-Oct-2005 Intent BREASTS ([id number])By: Maylin Melendez DO Planned Medications INJECTION, METHYLPREDNISOLONE [...] MCG/ML Injection Solution Ordered: 16-Jan-2010 Pending Long PARTS PICKER, Carol L Vitamin B-12 1000 MCG/ML Injection Solution Ordered: 04-Apr-2010 Pending [place] PARTS PICKER, Carol Vitamin B-12 1000 MCG/ML Injection Solution Ordered: 11-Jul-2010 Pending Hluszti PARTS PICKER, Carol Vitamin B-12 1000 MCG/ML Injection Solution Ordered: 21-Nov-2010 Pending Long PARTS PICKER, Carol L Vitamin B-12 1000 MCG/ML Injection [...] MCG/ML Injection Solution Ordered: 22-Jul-2011 Pending Hlusadriana PARTS PICKER, Carol Vitamin B-12 1000 MCG/ML Injection Solution [...] for ER visit: note: (afib in [facility] from sat till wed). The patient [...] with ibs so going to see [facility] for new med - had neuro apptok- [...] SOB. 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 The patient has noticed nothing from the geriatic depression scale. Other providers contributing to the patient's care are gas main fitter, gastrologist an d other: (neurologist). 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 The patient feels well with no complaints [...] first time happened while family there at [place] while family eating dinner - other time happened when her friend was talking about his open heart surgery - feels like may be panic or anxiety- she was at [employer] a few mos ago and he had [...]
--- OUTSIDE RECORDS SUMMARY | 2018-02-18 04:44 | XMS RPT_ITS | Continuity of Care Document ---
:1940 Author Organization [facility] Address [address] [place] [address] Phone Care Team Providers Name Role Phone Nia Uriostegui DO Unavailable Je Rodriguez Unavailable Dr. Christopher Alfonso Unavailable Mariely Monreal Unavailable Messenger, EDITOR INDEX Susie Unavailable Unavailable Long EDITOR INDEX, Carol L Unavailable Unavailable Unavailable Unavailable Problems [...] (Z86.010, V12.72) Comments: Colonoscopy 06/09/12, 5 years, [id number] adenoma- repeat in 5 years Status: Active [...] meninges (D42.9, 237.6) Comments: Dr Rivas in [place], 09/25, does MRI every year , not [...] Lopez LPN Start : 31-Jul-2016 Active Pen Marland 5/16 31G X 8 MM Miscellaneous 1 [...] for 0 days Refills: 0 Ordered:27-Feb-2016 Long EDITOR INDEX, Carol L End : 27-Feb-2016 Inactive NASONEX, 50MCG/ACT (Nasal Suspension) 1-2 squirts Suspension daily for 0 days Quantity: 1 {Unspecified} Refills: 0 Ordered:14-Jan-2014 ULYSSES Quiñones Start : 05-May-2013 End : 14-Jan-2014 Inactive Potassium Chloride ER 20 MEQ Oral Tablet Extended Release 1 (one) Tablet ER Tablet ER daily for 0 days Quantity: 60 {Tablet} Refills: 0 Ordered:27-Feb-2016 Long EDITOR INDEX, Carol L Start : 29-Jun-2014 End : [...] End : 27-Mar-2012 Inactive Comments:DION< DION< DION< IDON No generic PROVENTIL HFA, 108 (90 Base)MCG/ACT [...] End : 07-Nov-2016 Inactive VITAMIN D (ERGOCALCIFEROL), 91932IDKH (Oral Capsule) 1 cap once a week (83067 UNIT) Inactive Vitamin D3 59412 UNIT Oral Tablet 1 (one) Tablet weekly [...] : 17-Apr-2012 End : 17-Apr-2012 Discontinued ERGOCALCIFEROL, 68696QJMB (Oral Capsule) 1 (one) Capsule q week [...] switch to her tradjenta VITAMIN D (ERGOCALCIFEROL), 41819TUAP (Oral Capsule) 1 Capsule twice a week [...] related so will get her back to [facility] Status: Inactive as of 24-Apr-2016 Unspecified [...] Operative Report Result: Comments: See Note; NOTES: [facility] Medical Records Department [address] [place] [address] Operative Report 11/03/17 1228 MR#: [id number] Acct: [id number] Name: COMFORT OLSON Rep #: [id number] : 1940 76 From: Patrick Ellsworth MD PCP: Nia Uriostegui DO Status: [facility] Y Location: [facility] Problem List (1) New onset atrial flutter Status: Acute (2) Atherosclerotic heart disease of [place] coronary artery without angina pectoris Status: Chronic Qualifiers: [place] vs. transplanted heart: [place] heart Qualified Code(s): I25.10 - Atherosclerotic heart disease of [place] nitin nary artery without angina pectoris Comment: 08/06/2004 CABG x2 VILLAGRAN side to side to second Diagonal and end to side to Anterior Descending artery in Sequential fashion. [facility]: 08/01/2004; 10/15/2011 (3) Cardiomyopathy in diseases classified [...] Visit 9xxxx: Other Procedure See Report - [id number] 11/04/17 0525 <Electronically signed by Patrick Ellsworth MD> Date Patrick Ellsworth MD CC: Patrick Ellsworth MD; Jonel Rashid MD; Nia Uriostegui DO Signed 03-Nov-2017 Operative Report Result: Comments: See Note; NOTES: [facility] Medical Records Department [address] [place] [address] Operative Report 11/03/174 MR#: [id number] Acct: [id number] Name: COMFORT OLSON Lane Rep #: [id number] : 1940 76 From: Jonel Rashid MD PCP: Nia Uriostegui DO Status: REG SDC Y Location: [facility] Operative Report Date of Procedure: 11/03/17 [...] Visit Report Result: Comments: See Note; NOTES: [facility] [address] [place] [address] OFFICE VISIT Date of Service: 10/08/17 MR#: [id number] Acct: [id number] Name: COMFORT OLSON Re p #: [id number] : 1940 Provider: Jonel Rashid MD Age/Sex: 76/F Location[place] [facility] Status: Signed HPI [facility] Chief Complaint: Follow up Details: [...] 70 Intake Visit Reasons: ER 8-20 per AIR COMPRESSOR ENGINEER Allergies No Known Allergies Allergy (Verified 10/08/17 [...] PO BID 08/24/17 [History Confirmed 10/05/17] Methscopolamine Midway 5 mg P O BID 08/24/17 [History [...] (Chronic) Atherosclerotic heart disease of [place] coronary artery without angina pectoris (Chronic) HLD [...] fibrillation ablation. Arrangements were made at the [facility] for the above to be considered. [...] bundle branch block. 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 (poiser) Coding Level of Care Code Off vis,est,level [...] Lead Electrocardiogram Result: Comments: See Note; NOTES: [facility] Cardiovascular Services [address] [place] [address] 12 Lead EKG 10/05/17 0149 MR#: [id number] Acct: [id number] Name: COMFORT OLSON Rep # : [id number] : 1940 76 From: Jonel Rashid MD [...] Confirmed by JONEL RASHID MD ([id number]), editor greeting card AMIRA CASTRO (56) on 10/07/2017 2:45:19 PM Referred By: Jonel Rashid Confirmed By:JONEL RASHID MD 10/07/17 7690 Date _ Jonel Rashid MD CC: Emery Allen MD; Nia Uriostegui DO Signed 07-Oct-2017 12 Lead Electrocardiogram Result: Comments: See Note; NOTES: [facility] Cardiovascular Services [address] [place] [address] 12 Lead EKG 10/05/17 0333 MR#: [id number] Acct: [id number] Name: COMFORT OLSON Rep # : [id number] : 1940 76 From: Jonel Rashid MD [...] Confirmed by JONEL RASHID MD ([id number]), editor greeting card AMIRA CASTRO (56) on 10/07/2017 2:42:56 PM Referred By: Kathleen Rashid Confirmed By:JONEL RASHID MD 10/07/17 1442 Date Jonel Rashid MD CC: Emery Allen MD; Nia Uriostegui DO Signed 05-Oct-2017 Discharge Instruction Result: Comments: See Note; NOTES: [facility] Medical Records Department [address] [place] [address] Discharge Instruction 10/05/17 0440 MR#: [id number] Acct: [id number] Name: FRITZLiyah Sherman Rep #: [id number] : 1940 76 From: Emery Allen MD [...] Primary Care Provi latrell. Call [facility] Registry ([phone]) or report to the closest Emergency Room. Call 911 if necessary. 10/05/17 0528 <Electronically signed by Emery Allen MD> Date ____ Emery Allen MD Cosigner Signature (If Indicated): Date CC: Nia Uriostegiu DO 05-Oct-2017 Emergency Department Summary Result: Comments: See Note; NOTES: [facility] Medical Records Department [address] [place] [address] Emergency Department Summary 10/05/17 0435 MR#: [id number] Acct: [id number] Name: COMFORT OLSON Rep #: [id number] : 1940 76 From: Emery Allen MD [...] flutter This not e was generated with Meridian-IQ dictation software. It may contain incorrect words, [...] your Primary Care Provider. Call [facility] ([phone]) or report to the closest Emergency Room. Call 911 if necessary. 10/05/17 0528 &#60 ;Electronically signed by Emery Allen MD> Date Emery Allen MD Cosigner Signature (If Indicated): Date CC: Nia Uriostegui DO 05-Oct-2017 Chest 1 View (Portable) Result: Comments: See Note; NOTES: [facility] Imaging Services [address] [place] [address] Chest 1 View (Portable) MR#: [id number] Acct: [id number] Name: COMFORT OLSON Rep #: [id number] : 1940 F 76 From: Chris Dwyer MD PCP: Nia Uriostegui DO Status: REG ER Study: Chest 1 View (Portable) Date of Exam: 10/05/17 Exam# [id number] Ordering Dr: Emery Allen MD STUDY: X-R [...] of the upper abdomen. ORDER # : [id number] RAD/Chest 1 View (Portable) IMPRESSION: Mild cardiomegaly. Minimal persistent left basilar atelectasis. No evidence for acute cardiopulmonary pathology. Electronically Signed: Chris Dwyer MD at 2:42 EDT , Service support , CC: Emery Allen MD; Nia Uriostegui DO Business Control Manager: Signed 03-Oct-2017 12 Lead Electrocardiogram Result: Comments: See Note; NOTES: [facility] Cardiovascular Services [address] [place] [address] 12 Lead EKG 10/02/17 1353 MR#: [id number] Acct: [id number] Name: COMFORT OLSON Rep # : [id number] : 1940 76 From: Jonel Rashid MD Attending Dr: Gay ROSAS,Jonel Status: REG CLI Ordering Dr: Richard Lombardo NP-Kathleen Date: 10/02/17 Location: [facility] Sex: F C Admitted: Test Reason : [...] Confirmed by JONEL RASHID MD ([id number]), editor greeting card AMIRA CASTRO (56) on 10/03/2017 1:43:28 PM Referred By: Jonel Rashid Confirmed By:USMAN RASHID MD 10/03/17 1343 Date Jonel Rashid MD CC: JOSSELYN Lombardo; Jonel Rashid MD; Nia Uriostegui DO Signed 02-Oct-2017 Echo, Complete w/ Contrast Result: Comments: See Note; NOTES: [facility] Cardiovascular Services [address] [place] [address] Echo Complete W/ Contrast 10/02/17 1250 MR#: [id number] Acct: [id number] Name: COMFORT JONES Rep #: [id number] : 1940 76 From: Jonel Rashid MD Attending Dr: Jonel Rashid MD Status: REG CLI Ordering Dr: Jonel Rashid MD Date: 10/02/17 Location: [facility] Sex: F C Admitted: Reason Fo r [...] Doppler Measurements AND Calculations MV E max anige: 92.9 cm/sec Lat Peak E' Angie: 7.5 [...] Dictated: 10/02/17 1250 Date Transcribed: 10/02/171742 Business Control Manager: Signed 02-Oct-2017 12 Lead Electrocardiogram Result: Comments: See Note; NOTES: [facility] Cardiovascular Services [address] [place] [address] 12 Lead EKG 09/29/17 1035 MR#: [id number] Acct: [id number] Name: COMFORT OLSON Rep # : [id number] : 1940 76 From: Antonio Tovar MD Attending Dr: Status: DEP ER Ordering Dr: Jignesh Tlelo MD Date: 09/29/17 Location: ED Sex: F [...] Confirmed by ZARA ROSAS, ANTONIO ([id number]), editor greeting card AMIRA CASTRO (56) on 10/02/2017 1:30:21 PM Refer red By: BOZENA Confirmed By:ANTONIO TOVAR MD 10/02/17 1330 Date Antonio Tovar MD CC: Nia Uriostegui DO; Jignesh Tello MD Signed 02-Oct-2017 12 Lead Electrocardiogram Result: Comments: See Note; NOTES: [facility] Cardiovascular Services [address] [place] [address] 12 Lead EKG 09/29/17 1020 MR#: [id number] Acct: [id number] Name: COMFORT OLSON Rep # : [id number] : 1940 76 From: Antonio Tovar MD [...] Abnormal ECG Confirmed by ANTONIO TOVAR MD ([id number]), editor greeting card AMIRA CASTRO (56) on 10/02/2017 1:27:54 PM Referred By: BOZENA Confirmed By:ANTONIO TOVAR MD 10/02/17 1327 Date Antonio Tovar MD CC: Nia Uriostegui DO; Jignesh Tello MD Signed 02-Oct-2017 12 Lead Electrocardiogram Result: Comments: See Note; NOTES: [facility] Cardiovascular Services [address] [place] [address] 12 Lead EKG 09/29/17 0905 MR#: [id number] Acct: [id number] Name: COMFORT OLSON Rep # : [id number] : 1940 76 From: Antonio Tovar MD [...] Abnormal ECG Confirmed by ANTONIO TOVAR MD ([id number]), editor greeting card AMIRA CASTRO (56) on 10/02/2017 1:27:13 PM Referred By: BOZENA Anne d By:ANTONIO TOVAR MD 10/02/17 1327 Date Antonio Tovar MD CC: Nia Uriostegui DO; Jignesh Tello MD Signed 02-Oct-2017 12 Lead Electrocardiogram Result: Comments: See Note; NOTES: [facility] Cardiovascular Services [address] [place] [address] 12 Lead EKG 09/29/17 0926 MR#: [id number] Acct: [id number] Name: COMFORT OLSON Rep # : [id number] : 1940 76 From: Antonio Tovar MD [...] Confirmed by ZARA ROSAS, ANTONIO ([id number]), editor greeting card AMIRA CASTRO (56) on 10/02/2017 1:26:27 PM Referr ed By: BOZENA Confirmed By:ANTONIO TOVAR MD 10/02/171325 Date Antonio Tovar MD CC: Nia Uriostegui DO; Jignesh Tello MD Signed 29-Sep-2017 Emergency Department Summary Result: Comments: See Note; NOTES: [facility] Medical Records Department [address] [place] [address] Emergency Department Summary 09/29/17 0912 MR#: [id number] Acct: [id number] Name: COMFORT OLSON Rep #: [id number] : 1940 76 From: Jignesh Tello MD [...] Sinus bradycardia. This note was generated with Meridian-IQ dictation software. It may contain incorrect words, [...] problems, contact your Primary Care Provider. Call [facility] ([phone]) or report to the closest Emergency Room. Call 911 if necessary. 09/29/17 8248 <Electronically si gned by Jignesh Tello MD> Date Jignesh Tello MD Cosigner Signature (If Indicated): Date CC: Nia Uriostegui DO 29-Sep-2017 Chest 1 View (Portable) Result: Comments: See Note; NOTES: [facility] Imaging Services [address] [place] [address] Chest 1 View (Portable) MR#: [id number] Acct: [id number] Name: COMFORT OLSON Rep #: [id number] : 1940 F 76 From: John Babcock MD PCP: Nia Uriostegui DO Status: REG ER Study: Chest 1 View (Portable) Date of Exam: 09/29/17 Exam# [id number] Ordering Dr: Jignesh Tello MD STUDY: X-RAY [...] John Babcock MD at 9:55 EDT Tel [phone], Service support , CC: Nia Uriostegui DO; Jignesh Tello MD Business Control Manager: Signed 25-Sep-2017 Cardiology Visit Report Result: Comments: See Note; NOTES: [facility] [address] [place] [address] OFFICE VISIT Date of Service: 09/25/17 MR#: [id number] Acct: [id number] Name: COMFORT OLSON p #: [id number] : 1940 Provider: Jonel Rashid MD Age/Sex: 76/F Location[place] [facility] Status: Signed HPI HPI Chief [...] Lt brachial Intake Visit Reasons: 6 M Sustainability Coordinator Required: No Accompanied by: nonw Is patient [...] BID 08/24/17 [History Confirmed 09/25/17] Met hscopolamine Midway 5 mg PO BID 08/24/17 [History Confirmed [...] (Chronic) Atherosclerotic heart disease of [place] coronary artery without angina pectoris (Chronic) HTN [...] the valsartan. 4. Atherosclerosis of [place] coronary artery of [place] heart without angina pectoris I25.10 08/06/2004 CA BG x2 VILLAGRAN side to side to second Diagonal and end to side to Anterior Descending artery in Sequential fashion. [facility]: 08/01/2004; 10/15/2011 Plan She does have a [...] Other Medications New: Follow Up 6 Months (poiser) Coding Level of Care Code Off vis,est,level 4 Diagnoses Paroxysmal atrial fibrillation I48.0 Cardiomyopathy in diseases c lassified elsewhere I43 Essential hypertension I10 Hypertension type: essential hypertension Atherosclerosis of [place] coronary artery of [place] heart without angina pectoris I25.10 [place] vs. transplan joel heart: [place] heart Mixed hyperlipidemia E78.2 Hyperlipidemia type: mixed hyperlipidemia Coding Level of Care Code Off vis,est,level 4 Diagnoses Paroxysmal atrial fibrillation I48.0 Cardiomyopath y in diseases classified elsewhere I43 Essential hypertension I10 Hypertension type: essential hypertension Atherosclerosis of [place] coronary artery of [place] heart without angina pectoris I25.10 [place] vs. transplanted heart: [place] heart Mixed hyperlipidemia E78.2 Hyperlipidemia type: mixed hyperlipidemia 09/25/17 1029 <Electronically signed by Jonel Rashid MD> Date __ Jonel Rashid MD Cosigner Signature: Date (if applicable) CC: Nia Uriostegui DO 26-Aug-2017 12 Lead Electrocardiogram Result: Comments: See Note; NOTES: [facility] Cardiovascular Services [address] [place] [address] 12 Lead EKG 08/24/17 1336 MR#: [id number] Acct: [id number] Name: COMFORT OLSON Rep # : [id number] : 1940 76 From: Jonel Rashid MD [...] Confirmed by JONEL RASHID MD ([id number]), editor greeting card AMIRA CASTRO (56) on 08/26/2017 1:37:24 PM Referred B y: YONI Confirmed By:JONEL RASHID MD 08/26/17 1337 Date Jonel Rashid MD CC: Nia Uriostegui DO; Alexis Kemp MD Signed 26-Aug-2017 12 Lead Electrocardiogram Result: Comments: See Note; NOTES: [facility] Cardiovascular Services [address] [place] [address] 12 Lead EKG 08/24/17 0956 MR#: [id number] Acct: [id number] Name: COMFORT OLSON Rep # : [id number] : 1940 76 From: Jonel Rashid MD [...] Confirmed by GAY ROSAS, JONEL ([id number]), editor greeting card AMIRA CASTRO (56) on 08/26/2017 12:50:18 PM Referred By: YONI Confirmed By:JONEL RASHID MD 08/26/17 1250 Date Jonel Rashid MD CC: Nia Uriostegui DO; Alexis Kemp MD Signed 24-Aug-2017 Emergency Department Summary Result: Comments: See Note; NOTES: [facility] Medical Records Department [address] [place] [address] Emergency Department Summary 08/24/17 1336 MR#: [id number] Acct: [id number] Name: COMFORT OLSON Rep #: [id number] : 1940 76 From: Alexis Kemp MD [...] coronary disease This note was generated with Meridian-IQ dictation software. It may contain in correct [...] your Primary Care Provider. Call [facility] ([phone]) or report to the [facility] Emergency Room. Call 911 if necessary. 08/24/17 1340 <Electronically signed by Alexis Kemp MD> Date Alexis Villasenor Signsully re (If Indicated): Date CC: Jonel Rashid MD; Nia Uriostegui DO 24-Aug-2017 Chest PA and Lateral Result: Comments: See Note; NOTES: [facility] Imaging Services [address] [place] [address] Chest PA and Lateral MR#: [id number] Acct: [id number] Name: COMFORT OLSON Rep #: [id number] : 1940 F 76 From: Clyde Matute MD PCP: Nia Uriostegui DO Status: REG ER Study: Chest PA and Lateral Date of Exam: 08/24/17 Exam# [id number] Ordering Dr: Alexis Kemp MD STUDY: X-RAY [...] Nia Uriostegui DO; Alexis Kemp MD Business Control Manager: Signed 02-Jun-2017 12 Lead EKG performed by [facility] Result: Comments: See Note; NOTES: [facility] [address] [place] [address] 12 Lead EKG performed by [facility] 06/02/17 1121 MR#: [id number] Acct: [id number] Name: COMFORT OLSON Rep #: [id number] : 1940 76 From: Annemarie BLOOD Attending Dr: Annemarie Parsons Status: DEP AMB Ordering Dr: Annemarie Parsons Date: 06/02/17 Location: [facility] Sex: F C Admitted: BMS/12 Lead EKG performed by [facility] ECG Report Interpretation Sinus Rhythm -Intraventricular conduction defect and left axis -possible anterior fas cicular block consider ventricular hypertrophy. - Nonspecific T-abnormality. ABNORMAL Electronically signed on 06/04/2017 at 14:14 by Jonel Rashid 06/04/17 1415 Date Annemarie BLOOD CC: Nia Uriostegui DO Date Dictated: 06/02/17 1121 Date Transcribed: 06/02/17 112 Business Control Manager: BARBY Signed 29-May-2017 Cardiology Visit Report Result: Comments: See Note; NOTES: [facility] [address] [place] [address] [address] [place] [address] OFFICE VISIT Date of Service: 05/26/17 MR#: [id number] Acct: [id number] Name: COMFORT OLSON Re p #: [id number] : 1940 Provider: Annemarie Parsons Age/Sex: 76/F Location: [facility] Status: Signed HPI HPI Details: COMFORT OLSON, [...] surgery in 2004. She had an VILLAGRAN gglt-kz-zzhg to second diagonal and to anterior descending [...] (BMI) 33.3 Intake Visit Reasons: per Susi Sustainability Coordinator Required: No Accompanied by: NONE Is patient [...] PO DAILY 11/11/16 [History Confirmed 05/26/17] Methscopolamine Midway 5 mg PO BID 11/11/16 [History Confirmed [...] (Chronic) Atherosclerotic heart disease of [place] coronary artery without angina pectoris (Chronic) HTN [...] an EKG. 2. Atherosclerosis of [place] coronary artery of [place] heart without angina pectoris I25.10 08/06/2004 CABG x2 VILLAGRAN side to side to second Diagonal and end to side to Anterior [place] cending artery in Sequential fashion. [facility]: 08/01/2004; 10/15/2011 Plan - JEREMI Mcpherson . [...] 1 Week (EKG) 05/26/17 (keep appt with AIR COMPRESSOR ENGINEER) Coding Level of Care Code Off vis,est,level 4 Diagnos es Dyspnea on exertion R06.09 Atherosclerosis of [place] coronary artery of [place] heart without angina pectoris I25.10 [place] vs. transplanted heart: [place] heart Essential hypertension I10 Hypertension type: essential hypertension Mixed hyperlipidemia E78.2 Hyperlipidemia type: mixed hyperlipidemia Paroxysmal atrial fibrillation I48.0 Atrial fibrillation type: paroxysmal Coding Level of Care Code O ff vis,est,level 4 Diagnoses Dyspnea on exertion R06.09 Atherosclerosis of [place] coronary artery of [place] heart without angina pectoris I25.10 [place] vs. transplanted heart: [place] heart Essential hy pertension I10 Hypertension type: [...] CARLOS EDUARDO Result: Comments: See Note; NOTES: [facility] [address] [place] [address] 12 Lead EKG performed by CARLOS EDUARDO 05/26/17 1521 MR#: [id number] Acct: [id number] Name: FRITZ COMFORT Lane Rep #: [id number] : 1940 76 From: Annemarie BLOOD Attending Dr: Annemarie Parsons Status: DEP AMB Ordering Dr: Annemarie Parsons Date: 05/26/17 Location: [facility] Sex: F C Admitted: BMS/12 Lead EKG performed by [facility] ECG Report Interpretation Marked sinus Bradycardia -Poor R-wave progression - nonspecific -consider old anterior infarct. -Nonspecific ST depression -Nondiagnostic. ABNORMAL Electronically signed on 05/27/2017 at 08:40 by Jonel Rashid 05/27/17 0841 Date Annemarie BLOOD CC: Nia Uriostegui DO Date Dictated: 05/26/17 1521 Date Transcribed: 05/26/17 152 Business Control Manager: BARBY Signed 16-May-2017 Office Visit Report Result: Comments: See Note; NOTES: [address] [address] OFFICE VISIT Date of Service: 05/16/17 MR#: [id number] Acct: [id number] Patient: COMFORT OLSON Rep #: [id number] : 1940 Provider: Jonel Rashid MD Age/Sex: 76/F Location: [facility] Status: Signed Intake Intake Visit [...] SON Y 11/11/16 [History Confirmed 05/14/17] Methscopolamine Midway 5 mg PO BID 11/11/16 [History Confirmed [...] Orozco 16-May-2017 12 Lead EKG performed by [facility] Result: Comments: See Note; NOTES: [facility] [address] [place] [address] 12 Lead EKG performed by [facility] 05/16/171043 MR#: [id number] Acct: [id number] Name: COMFORT OLSON Rep #: [id number] : 1940 76 From: Annemarie BLOOD Attending Dr: Gay ROSAS,[place] Status: DEP AMB Ordering Dr: Annemarie Parsons Date: 05/16/17 Location: [facility] Sex: F C Adm itted: BMS/12 Lead EKG performed by [facility] Sinus Bradycardia -Poor R-wave progression -may be secondary to pulmonary isease consider old anterior infarct. Rightward P/QRS axis and rota tion possible pulmonary disease. ABNORMAL 05/16/171649 <Electronically signed by Annemarie BLOOD> Date Annemarie BLOOD CC: Nia Uriostegui DO Date Dictated: 05/16/171043 Date Transcribed: 05/16/171043 Business Control Manager: BARBY Signed 16-May-2017 12 Lead EKG performed by [facility] Result: Comments: See Note; NOTES: [facility] [address] [place] [address] 12 Lead EKG performed by [facility] 05/16/17 1044 MR#: [id number] Acct: [id number] Name: COMFORT OLSON Rep #: [id number] : 1940 76 From: Annemarie BLOOD Attending Dr: Jonel Rashid MD Status: DEP AMB Ordering Dr: Annemarie Parsons Date: 05/16/17 Location: [facility] Sex: F C Adm itted: BMS/12 Lead EKG performed by [facility] ECG Report Interpretation Sinus Bradycardia -Poor R-wave progression -may be secondary to pulmonary disease conside r old anterior infarct. Rightward P/QRS axis and rotation -possible pulmonary disease. ABNORMAL Electronically signed on 05/17/2017 at 18:31 by Jonel Rashid 05/17/17 1834 Date Annemarie BLOOD CC: Nia Uriostegui DO Date Dictated: 05/16/17 1044 Date Transcribed: 05/16/171043 Business Control Manager: BARBY Signed 14-May-2017 Cardiology Visit Report Result: Comments: See Note; NOTES: [facility] [address] [place] [address] OFFICE VISIT Date of Service: 05/14/17 MR#: [id number] Acct: [id number] Name: COMFORT OLSON Re p #: [id number] : 1940 Provider: Annemarie Parsons Age/Sex: 76/F Location: [facility] Status: Signed HPI HPI Details: COMFORT OLSON, is a 76 F who presents to the office today for an urgent appointm ent for increased shortness of breath. Patient does have a hospital of coronary artery disease with bypass surgery in 2004. She had an VILLAGRAN euwo-qg-bqdw to second diagonal and to anterior descending [...] 5 in Intake Visit Reasons: per MS Sustainability Coordinator Required: No Accompanied by: None Is patient [...] PO DAILY 11/11/16 [History Confirmed 05/14/17] Methscopolamine Midway 5 mg PO BID 11/11/16 [History Confirmed [...] PFSH Medical History Other secondary pulmonary hypertension (Dock Manager rosemarie) Cardiomyopathy in diseases classified elsewhere (Chronic) Other cerebral infarction (Chronic) Paroxysmal atrial fibrillation (Chronic) Atrial enlargement, left (Chronic) Atherosclerotic heart disea se of [place] coronary artery without angina pectoris (Chronic) HTN [...] EKG 2. Ath erosclerosis of [place] coronary artery of [place] heart without angina pectoris I25.10 08/06/2004 CABG [...] atrial fibrillation I48.0 Atherosclerosis of [place] coronary artery of [place] heart without angina pectoris I25.10 [place] vs. transplanted heart: [place] heart Essential hy pertension I10 Hypertension type: essential hypertension Mixed hyperlipidemia E78.2 Hyperlipidemia type: mixed hyperlipidemia Coding Level of Care Code Off vis,est,level 4 Diagnoses Paroxysmal atrial fibrillation I48.0 Atherosclerosis of [place] coronary artery of [place] heart without angina pectoris I25.10 [place] vs. transplanted heart: [place] heart Essential hypertension I10 Hypertension type: ess ential hypertension Mixed hyperlipidemia E78.2 Hyperlipidemia type: mixed hyperlipidemia 05/14/17 1718 <Electronically signed by Annemarie BLOOD> Date Annemarie BLOOD 05/14/17 1732<Electronically signed by Jonel Rashid MD> Cosigner Signature: Date (if applicable) Jonel Rashid MD CC: Nia Thakkarolinda MCFARLAND 14-May-2017 12 Lead EKG performed by BMS Result: Comments: See Note; NOTES: [facility] [address] [place] [address] 12 Lead EKG performed by BMS 05/14/17 1104 MR#: [id number] Acct: [id number] Name: COMFORT OLSON Rep #: [id number] : 1940 76 From: Annemarie BLOOD Attending Dr: Annemarie Parsons Status: DEP AMB Ordering Dr: Annemarie Parsons Date: 05/14/17 [place] [facility] Sex: F C Admitted: B[facility]/12 Lead EKG performed by [facility] Marked sinus Bradycardia -Intraventricular conduction defect -consider left entricular hypertrophy. -Lateral infarct -age undetermined. - -abnormality -Possible Inferior and lateral ischemia. ABNORMAL 05/15/17 1041 <Electronically signed by Annemarie BLOOD> Date M farhan BLOOD CC: Nia Uriostegui DO Date Dictated: 05/14/171103 Date Transcribed: 05/14/171103 Business Control Manager: BARBY Signed 14-May-2017 12 Lead EKG performed by BMS Result: Comments: See Note; NOTES: [facility] [address] [place] [address] 12 Lead EKG performed by BMS 05/14/171103 MR#: [id number] Acct: [id number] Name: COMFORT OLSON Rep #: [id number] : 1940 76 From: Annemarie BLOOD Attending Dr: Annemarie Parsons Status: DEP AMB Ordering Dr: Annemarie Parsons Date: 05/14/17 Location: [facility] Sex: F C Admitted: [facility]/12 Lead EKG performed by [facility] ECG Report Interpretation Marked sinus Bradycardia -Intraventricular conduction defect -consider left ventricul ar hypertrophy. -Lateral infarct -age undetermined. - T-abnormality -Possible Inferior and lateral ischemia. ABNORMAL Electronically signed on 05/17/2017 at 18:31 by Jonel Rashid 05/17/17 1834 Date __ Annemarie BLOOD CC: Nia Uriostegui DO Date Dictated: 05/14/171103 Date Transcribed: 05/14/171103 Business Control Manager: BARBY Signed 09-May-2017 Office Visit Report Result: Comments: See Note; NOTES: [facility] [address] [place] [address]. 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 Allergies No Known Allergies Allergy (Verified 05/04 [...] PO DAILY 11/11/16 [History Confirmed 04/19/17] Methscopolamine Midway 5 mg PO BID 11/11/16 [History Confirmed [...] Seaman 09-May-2017 12 Lead EKG performed by [facility] Result: Comments: See Note; NOTES: [facility] [address] [place] [address] 12 Lead EKG performed by [facility] 05/09/17 1110 MR#: [id number] Acct: [id number] Name: COMFORT OLSON Rep #: [id number] : 1940 76 From: Jonel Rashid MD Attending Dr: Albert Kerr RN Status: DEP AMB Ordering Dr: Jonel Rashid MD Date: 05/09/17 Location: [facility] Sex: F C Admitted: [facility]12 Lead EKG performed by [facility] Sinus Rhythm -Nonspecific QRS widening and anterior fascicular block. -Poor -wave progression -nonspecific -consider old anterior infarct. -Nonspecific T d epression -Nondiagnostic. ABNORMAL 05/09/17 1610 <Electronically signed by Jonel Rashid MD> Date Jonel Rashid MD CC: Nia Beth O Date Dictated: 05/09/171109 Date Transcribed: 05/09/171109 Business Control Manager: CO Signed 09-May-2017 12 Lead EKG performed by BMS Result: Comments: See Note; NOTES: [facility] [address] [address] 12 Lead EKG performed by [facility] 05/09/171109 MR#: [id number] Acct: [id number] Name: COMFORT OLSON Rep #: [id number] : 1940 76 From: Jonel Rashid MD Attending Dr: Albert Kerr RN Status: DEP AMB Ordering Dr: Jonel Rashid MD Date: 05/09/17 Location: [facility] [place] Sex: F C Admitted: [facility]/12 Lead EKG performed by [facility] ECG Report Interpretation Sinus Rhythm -Nonspecific QRS widening and anterior fascicular block. -Poor R-wave progression -nonspec ific -consider old anterior infarct. -Nonspecific ST depression -Nondiagnostic. ABNORMAL Electronically signed on 05/17/2017 at 18:31 by Jonel Rashid 05/17/17 1834 Date Jonel Rashid MD CC: Nia Uriostegui DO Date Dictated: 05/09/171109 Date Transcribed: 05/09/171109 Business Control Manager: CO Signed 06-May-2017 12 Lead Electrocardiogram Result: Comments: See Note; NOTES: [facility] Cardiovascular Services [address] [place] [address] 12 Lead EKG 05/04/17 2237 MR#: [id number] Acct: [id number] Name: COMFORT OLSON Rep # : [id number] : 1940 76 From: Jonel Rashid MD [...] Confirmed by JONEL RASHID MD ([id number]), editor greeting card AMIRA CASTRO (56) on 05/06/2017 1:42:52 PM Referred By: DONY Confirmed By:JONEL RASHID MD 05/06/17 1342 Date Jonel Rashid MD CC: Natalya Napoles MD; Nia Uriostegui Signed 06-May-2017 12 Lead Electrocardiogram Result: Comments: See Note; NOTES: [facility] Cardiovascular Services [address] [place] [address] 12 Lead EKG 05/04/17 2045 MR#: [id number] Acct: [id number] Name: COMOFRT OLSON Rep # : [id number] : 1940 76 From: Jonel Rashid MD [...] Confirmed by JONEL RASHID MD ([id number]), editor greeting card AMIRA CASTRO (56) on 05/06/2017 1:08:29 PM Referred By: RICKY NAPOLES Confirmed By:JONEL RASHID MD 05/06/17 1308 Date Jonel Rashid MD CC: Natalya Napoles MD; Nia Uriostegui DO Signed 04-May-2017 Emergency Department Summary Result: Comments: See Note; NOTES: [facility] Medical Records Department [address] [facility] [place] [address] Emergency Department Summary 05/04/17 2259 MR#: [id number] Acct: [id number] Name: COMFORT OLSON Rep #: [id number] : 1940 76 From: Natalya Napoles MD [...] ED physician This note was generated with Meridian-IQ dictation software. It may contain incorre ct words, spelling, and punctuation that were not noted in review of the chart prior to signing ED Disposition - Plan for ED Patient: Chief Complaint: Palpitations Referrals: Nia Uriostegui, DO [[facility] Provider] - What to do if you have Problems For any increased pain, shortness of breath, bleeding, nausea or vomiting, chest pain, or any unexpected problems, contact your Primary Care Pro vider. Call Doctors Registry ([phone]) or report to the closest Emergency Room. Call 911 if necessary. 05/04/17 7671 <Electronically signed by Natalya Napoles MD> Date Natalya Napoles MD Cosigner Signature (If Indicated): Date CC: Nia Uriostegui 04-May-2017 Discharge Instruction Result: Comments: See Note; NOTES: [facility] Medical Records Department [address] [place] [address] Discharge Instruction 05/04/172339 MR#: [id number] Acct: [id number] Name: Liyah OLSON Rep #: [id number] : 1940 76 From: Natalya Napoles MD [...] your Primary Care Provider. Call [facility] ([phone]) or report to the closest Emergency Room. Call 911 if necessary. 05/04/172340 <Electronically signed by Natalya Napoles MD> Date Natalya mary MD Cosigner Signature (If Indicated): Date CC: Niashahriar Uriostegui 04-May-2017 Chest 1 View (Portable) Result: Comments: See Note; NOTES: [facility] Imaging Services [address] [place] [address] Chest 1 View (Portable) MR#: [id number] Acct: [id number] Name: COMFORT OLSON Rep #: [id number] : 1940 F 76 From: Rafael Perez MD PCP: Nia Uriostegui DO Status: REG ER Study: Chest 1 View (Portable) Date of Exam: 05/04/17 Exam# [id number] Ordering Dr: Natalya Napoles MD STUDY: X [...] Natalya Napoles MD; Nia Uriostegui DO Business Control Manager: Signed 19-Apr-2017 Emergency Department Summary Result: Comments: See Note; NOTES: [facility] Medical Records Department [address] [place] [address] Emergency Department Summary 04/19/17 1757 MR#: [id number] Acct: [id number] Name: COMFORT OLSON Rep #: [id number] : 1940 76 From: Deisi Ryan MD [...] with RVR This note was generated with GrownOut software. It may contain incorrect words, spelling, [...] your Primary Care Provider. Call [facility] ([phone]) or report to the closest Emergency Room. Call 911 if necessary. 04/19/171930 <Electronically signed by Deisi moscoso MD> Date Deisi Ryan MD Cosigner Signature (If Indicated): Date CC: Nia Uriostegui DO 19-Apr-2017 Chest 1 View (Portable) Result: Comments: See Note; NOTES: [facility] Imaging Services [address] [place] [address] Chest 1 View (Portable) MR#: [id number] Acct: [id number] Name: COMFORT OLSON Rep #: [id number] : 1940 F 76 From: Thanh Ambriz MD PCP: Nia Uriostegui DO Status: PRE ER Study: Chest 1 View (Portable) Date of Exam: 04/19/17 Exam# [id number] Ordering Dr: Deisi Ryan MD STUDY: X- [...] Deisi Ryan MD; Nia Uriostegui DO Business Control Manager: Signed 14-Mar-2017 Cardiology Visit Report Result: Comments: See Note; NOTES: [facility] [address] [place] [address] OFFICE VISIT Date of Service: 03/14/17 MR#: [id number] Acct: [id number] Name: COMFORT OLSON p #: [id number] : 1940 Provider: JOSSELYN Lombardo Age/Sex: 76/F Location[place] [facility] Status: Signed HPI 3 M [...] less than 30% stenosis. 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 3. 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 transplanted heart: [place] heart Paroxysmal atrial fibrillation I48.0 Mixed hyperlipidemia E7 8.2 Hyperlipidemia type: mixed hyperlipidemia Coding Level of Care Code Off vis,est,level 3 Diagnoses Essential hypertension I10 Hypertension type: essential hypertension Cardiomyopathy in diseases c lassified elsewhere I43 Atherosclerosis of [place] coronary artery of [place] heart without angina pectoris I25.10 [place] vs. transplanted heart: [place] heart Paroxysmal atrial fibrillation I48.0 Mixed hy perlipidemia E78.2 Hyperlipidemia type: mixed hyperlipidemia 03/14/17 1154 <Electronically signed by Richard FREGOSOC> Date Richard Lombardo CHIP LOFT WORKER-C 03/14/17 1527<Electronically signed by Jonel Rashid MD> Cosigner Signature: Date (if applicable) Jonel Rashid MD CC: Nia Uriostegui DO 10-Mar-2017 Echo, Complete w/ Contrast Result: Comments: See Note; NOTES: [facility] Cardiovascular Services [address] [place] [address] Echo Complete W/ Contrast 03/10/17 1008 MR#: [id number] Acct: [id number] Name: COMFORT JONES Rep #: [id number] : 1940 76 From: Jonel Rashid MD Attending Dr: Jonel Rashid MD Status: REG CLI Ordering Dr: Jonel Rashid MD Date: 03/10/17 Location: [facility] Sex: F C Admitted: Reason Fo r [...] 1008 Date Transcr ibed: 03/10/17 1412 Business Control Manager: Signed 13-Nov-2016 CTA Chest W/WO Contrast Result: Comments: See Note; NOTES: [facility] Imaging Services [address] [place] [address] CTA Chest W/WO Contrast MR#: [id number] Acct: [id number] Name: COMFORT OLSON Rep #: [id number] : 1940 F 75 From: Charly Almendarez DO PCP: Nia Uriostegui DO Status: REG ER Study: CTA Chest W/WO Contrast Date of Exam: 11/13/16 Exam# [id number] Ordering Dr: Emery Allen MD STUDY: CTA [...] Emery Allen MD; Nia Uriostegui DO Business Control Manager: Signed 11-Nov-2016 Chest 1 View (Portable) Result: Comments: See Note; NOTES: [facility] Imaging Services [address] [place] [address] Chest 1 View (Portable) MR#: [id number] Acct: [id number] Name: COMFORT OLSON Rep #: [id number] : 1940 F 75 From: Jorge Herman MD PCP: Nia Uriostegui DO Status: REG ER Study: Chest 1 View (Portable) Date of Exam: 11/11/16 Exam# [id number] Ordering Dr: Jignesh Tello MD STUDY: X-RA [...] CC: Nia vo ; Jignesh Tello MD Business Control Manager: Signed 16-Jan-2016 Chest PA and Lateral Result: Comments: See Note; NOTES: [facility] Imaging Services [address] [place] [address] Verda 4d Chest PA and Lateral MR#: [id number] Acct: [id number] Name: COMFORT OLSON Rep #: [id number] : 1940 F 75 From: John Babcock MD PCP: Balbir Cramer Status: REG CLI Study: Chest PA and Lateral Date of Exam: 01/16/16 Exam# [id number] Ordering Dr: Balbir Cramer STUDY: X-RAY CHEST [...] John Babcock MD at 13:26 EST Tel [phone], Service support [phone], CC: Balbir Cramer Business Control Manager: Signed 14-Dec-2014 Bilat Scrn Digital AND CAD Result: Comments: See Note; NOTES: [facility] Imaging Services [address] [place] [address] Verdana 4d Bilat Scrn Digital AND CAD MR#: [id number] Acct: [id number] Name: COMFORT OLSON Rep #: [id number] : 1940 F 74 From: John Babcock MD PCP: Maylin Melendez DO Status: REG CLI Study: Bilat Scrn Digital AND CAD Date of Exam: 12/14/14 Exam# [id number] Ordering D r: Maylin Melendez DO MAMMOGRAPHY [...] John Babcock MD at 14:05 EST Tel [phone], Service support [phone], CC: Maylin Melendez DO Business Control Manager: Signed 14-Dec-2014 Carotid Duplex Ultrasound Result: Comments: See Note; NOTES: [facility] Cardiovascular Services [address] [place] [address] Carotid Duplex Ultrasound 12/12/14 1007 MR#: [id number] Acct: [id number] Name: COMFORT OLSON Rep #: [id number] : 1940 74 From: Darian Anderson MD Attending Dr: Maylin Melendez DO Status: REG CLI Ordering Dr: Maylin Melendez DO Date: 12/12/14 Location: [facility] Sex: F C Admi tted: Rt. Velocities/BP [...] the left vertebral artery. Procedure Carotid Duplex 04125. Exam performed in department. Interpreta tion Summary [...] Date Dictated: 12/12/14 1007 Date Transcribed: 12/14/14736 Business Control Manager: Signed 25-Apr-2014 Nuclear Stress Test - Chemical Result: Comments: See Note; NOTES: [facility] Imaging Services [address] [place] [address] Nuclear Medicine Report MR#: [id number] Acct: [id number] Name: COMFORT OLSON Rep #: [id number] : 1940 F 73 From: Jonel Rashid MD PCP: Maylin Melendez DO Status: REG CLI Study: Nuclear Stress Test - Chemical Date of Exam: 04/25/14 Exam# [id number] Ordering Dr: Jonel Rashid MD P HARMACOLOGIC [...] Jonel Rashid MD; Maylin Melendez DO Business Control Manager: CALIX Signed 31-Jan-2014 Spirometry (47550) Comments: Moderate restriction similar to previous Result: 14-Jan-2014 Chest PA and Lateral Result: Comments: See Note; NOTES: [facility] Imaging Services [address] [place] [address] Radiology Report MR#: [id number] Acct: [id number] Name: COMFORT OLSON Rep #: [id number] : 1940 F 73 From: John Babcock MD PCP: Maylin Melendez DO Status: REG CLI Study: Chest PA and Lateral Date of Exam: 01/14/14 Exam# [id number] Ordering Dr: Sherrie Amor STUDY: X-RAY CH [...] John Babcock MD at 14:58 EST Tel [phone], Service support [phone], RAD/Chest PA and Lateral IMPRESSION: Mild increased markings at the lung bases suggestive of linear atelectasis. Electronica lly Signed: John Babcock MD at 14:58 EST Tel [phone], Service support [phone], CC: Sherrie Amor; Maylin Melendez DO Business Control Manager: Signed 07-Sep-2013 Knee 4 or More Views Result: Comments: See Note; NOTES: [facility] Imaging Services [address] [place] [address] Radiology Report MR#: [id number] Acct: [id number] Name: COMFORT OLSON Rep #: [id number] : 1940 F 72 From: Yusuf Lopes PCP: Maylin Melendez DO Status: REG CLI Study: Knee 4 or More Views Date of Exam: 09/07/13 Exam# [id number] Ordering Dr: Maylin Melendez DO STUDY: X-RAY [...] Yusuf Lopes MD at 4:00 EDT Tel [phone] , Service support [phone] , CC: Maylin Melendez DO Business Control Manager: Signed 22-Aug-2013 Carotid Duplex Ultrasound Result: Comments: See Note; NOTES: [facility] Cardiovascular Services [address] [place] [address] Carotid Duplex Ultrasound 08/20/13 0945 MR#: [id number] Acct: [id number] Nam e: COMFORT OLSON Rep #: [id number] : 1940 72 From: Darian Anderson MD [...] the left vertebral artery. Procedure Carotid Duplex 27130. Exam performed in [facility] ent. Interpretation Summary Mild (<50%) stenosis right extracranial internal carotid. Mild (<50%) stenosis left extracranial internal carotid. Flow within the vertebral arteries is antegrade bilaterally. Ordering Physician: Maylin Melendez Performed By: Sanaz Sheth RVT : Maylin Melendez DO Date Dictated: 08/20/13 0945 Date Transcribed: 08/22/13 0848 Business Control Manager: Signed 09-Jul-2013 Chest PA and Lateral Result: Comments: See Note; NOTES: [facility] Imaging Services [address] [place] [address] Radiology Report MR#: [id number] Acct: [id number] Name: COMFORT OLSON Rep #: [id number] : 1940 F 72 From: Jermaine Khan DO PCP: Maylin Melendez DO Status: REG CLI Study: Chest PA and Lateral Date of Exam: 07/09/13 Exam# [id number] Ordering Dr: Sherrie Amor STUDY: X-RAY CHEST [...] Jermaine Khan DO at 22:50 EDT Tel [phone] , Service support [phone], CC: Sherrie Amor; Maylin Melendez DO Business Control Manager: Signed 08-Jan-2013 PT Discharge Summary Result: Comments: See Note; NOTES: [facility] Physical Therapy [facility] [address] [place] [address]. [address] [place] [address] Fax REHABILITATION SERVICES DISCHARGE SUMMARY MR#: [id number] Acct: [id number] Name: COMFORT OLSON Rep #: [id number] : 1940 72 From: Farrukh Hull Referring [...] has. Farrukh Hull, PT T: NTS JOB: [id number] <Electronically signed by Farrukh Hull > 01/08/13 0648 CC: * Signed 18-Dec-2012 Inital Evaluation - PT Result: Comments: See Note; NOTES: [facility] Physical [facility] [address] [place] [address] Fax REHABILITATION SERVICES INITIAL EVALUATION MR#: [id number] Acct: [id number] Name: COMFORT OLSON Rep #: [id number] : 1940 72 From: Farrukh Hull Referring Dr.: Maylin Melendez DO Status: REG RCR Insurance: MEDICARE PAR T A B Eval Date: [employer]IC LINGUIST BENEFIT PLAN DATE OF SERVICE: 12/18/2012 PHYSICIAN: [...] test. No obvious nystagmus. Right- sided Hallpike Manns Choice test is positive for dizziness of approximately [...] therapy. Farrukh Hull, PT T: NTS JOB: [id number] <Electronically signed by Farrukh Hull > 12/18/12 1151 CC: Signed For Medicare only, by signing this I certify the plan of care. 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 criteria.Please note revised GLUCOSE reference range zignqimlx90/02/2018. 79-Hdn-22319:55 CBC W/Diff, Automated Comments: [facility] [id number] [place], [place], [address] Absolute Lymph 2.08 {X10_3/ul} (Normal) Range: 0.83-4.51 [...] 4.2-5.4 WBC 8.7 K/mm3 (Normal) Range: 4.4-11.0 84-Nqp-48886:55 Troponin-I Comments: [facility] [address] [place], [place], [address] TROPONIN-I < 0.015 ng/mL (Normal) Comments: TROPONIN-I EXPECTED VALUES <0.045 Negative 0.045 - 0.590 Consistent with Cardiac Damage > OR = 0.600 Critical Value Not every elevated troponin is indicative of MD. T hesevalues should be used with clinical judgement in examiningthe patient's clinical picture for diagnosis. To establisha diagnosis of MD versus myocardial injury, there must be ademonstrated rise and/ or fall in the troponin values, inaddition to ischemic symptoms, EKG changes, new regionalwall motion abnormality, and/or angiographical evidence. PLEASE NOTE: REFERENCE RANGES EDITED 17:05 Basic Metabolic Profile (BMP) Comments: [facility] [id number] [place], [place], [address] GAP 8 (Normal) Range: 5-15 CO2 28.0 [...] A.D.A. criteria.Please note revised GLUCOSE reference range equnvyjto10/02/2018. :05 CBC W/Diff, Automated Comments: [facility] [address] [place], [place], [address] Absolute Lymph 2.24 {X10_3/ul} (Normal) Range: 0.83-4.51 [...] 4.4-11.0 :05 Troponin-I Comments: [facility] [address] [facility] [place], [place], [phone] TROPONIN-I 0.020 ng/mL (Normal) Comments: TROPONIN-I EXPECTED VALUES <0.045 Negative 0.045 - 0.590 Consistent with Cardiac Damage > OR = 0.600 Critical Value Not every elevated troponin is indicative of MD. T hesevalues should be used with clinical judgement in examiningthe patient's clinical picture for diagnosis. To establisha diagnosis of MD versus myocardial injury, there must be ademonstrated rise and/ or fall in the troponin values, inaddition to ischemic symptoms, EKG changes, new regionalwall motion abnormality, and/or angiographical evidence. PLEASE NOTE: REFERENCE RANGES EDITED 06/23/1727-Aug-201727-Uvf-552306:18 HgA1C , Office (68020) HgA1C , Office 7.6 % (Abnormal) Range: 4.6 - 7.1 :18 Blood Glucose , Office (82518) Blood Glucose , Office 142 (Normal) :51 Basic Metabolic Profile (BMP) Comments: [facility] [address] [place], [place], [address] GAP 9 (Normal) Range: 5-15 CO2 25.0 [...] A.D.A. criteria.Please note revised GLUCOSE reference range epyfogvmo52/02/2018. :51 CBC W/Diff, Automated Comments: [facility] [address] [place], [place], [address] Absolute Lymph 2.43 {X10_3/ul} (Normal) Range: 0.83-4.51 [...] 4.2-5.4 WBC 9.6 K/mm3 (Normal) Range: 4.4-11.0 55-Bhv-98582:51 Troponin-I Comments: [facility] [address] [place], [address] TROPONIN-I < 0.015 ng/mL (Normal) Comments: TROPONIN-I EXPECTED VALUES <0.045 Negative 0.045 - 0.590 Consistent with Cardiac Damage > OR = 0.600 Critical Value Not every elevated troponin is indicative of MD. T hesevalues should be used with clinical judgement in examiningthe patient's clinical picture for diagnosis. To establisha diagnosis of MD versus myocardial injury, there must be ademonstrated rise and/ or fall in the troponin values, inaddition to ischemic symptoms, EKG changes, new regionalwall motion abnormality, and/or angiographical evidence. PLEASE NOTE: REFERENCE RANGES EDITED 06/23/1728-May-201708-Jqp-474324:47 CALCIFEDIOL (27111) Comments: PATIENT NOT FASTINGPERFORMED BY: [facility] FallsTzputv8851 [facility] [id number] Vitamin D, 25-Hydroxy 20.2 ng/mL (Abnormal) Range: 30.0-100.0 Comments: Vitamin D deficiency has been defined by the [place] of[place]icine and an Endocrine Society practice guideline as alevel of serum 25-OH vitamin D less than 20 ng/mL (1,2).The Endocrine Society went on to further define vitamin Dinsufficiency as a level between 21 and 29 ng/mL (2).1. IOM ([place] of Medicine). 2010. Dietary reference intakes for calcium and D. [place]: The National Academies Press.2. Bobo MF, Estrellita STOCKTON, Maddi CALIX, et al. Evaluation, treatment, and prevention of vitamin D deficiency: an Endocrine Society clinical practice guideline. JCEM. 2010; 96(7):1911-30. 31-Nar-724650:47 VITAMIN B-12 (CYANOCOBALAMIN) Comments: PATIENT NOT FASTINGPERFORMED BY: [facility] FallsMivntq6404 [facility] [id number] (83303) Vitamin B12 311 pg/mL (Normal) Range: 232-1245 48-Kkw-715041:26 HgA1C , Office (81108) HgA1C , Office 7.3 % (Abnormal) Range: 4.6 - 7.1 14-Bgj-568071:26 Blood Glucose , Office (82283) Blood Glucose , Office 136 (Normal) 60-Rml-485465:56 Basic Metabolic Profile (BMP) Comments: 'TROP' Serial specimen #1, #2, #3, or #4: 1[facility] [address] [place], [address] GAP 11 (Normal) Range: 5-15 CO2 27.0 [...] A.D.A. criteria.Please note revised GLUCOSE reference range mtgbiqbug60/02/2018. 37-Juf-394225:56 CBC W/Diff, Automated Comments: [facility] Qt[address]unk[address] [place], [place], [address] Absolute Lymph 3.30 {X10_3/ul} (Normal) Range: 0.83-4.51 [...] 4.2-5.4 WBC 9.3 K/mm3 (Normal) Range: 4.4-11.0 47-Trk-891432:56 Troponin-I Comments: 'TROP' Serial specimen #1, #2, #3, or #4: [address] [place] [address] [address] [place], [place], [phone] TROPONIN-I < 0.02 ng/mL (Normal) Comments: TROPONIN-I EXPECTED VALUES <0.05 NEGATIVE 0.06 - 0.59 AT RISK OF MD > OR = 0.60 SUGGEST MD 95-Flq-548642:33 Basic Metabolic Profile (BMP) Comments: 'TROP' Serial specimen #1, #2, #3, or #4: [address] [place] [address] [place], [place], [phone] GAP 10 (Normal) Range: 5-15 CO2 25.0 [...] A.D.A. criteria.Please note revised GLUCOSE reference range vajiggtle60/02/2018. 47-Imy-676374:33 CBC W/Diff, Automated Comments: [facility] T[address]kg[address] [place], [place], [phone] Absolute Lymph 3.48 {X10_3/ul} (Normal) Range: 0.83-4.51 [...] 4.2-5.4 WBC 10.4 K/mm3 (Normal) Range: 4.4-11.0 42-Jwz-039918:33 Troponin-I Comments: 'TROP' Serial specimen #1, #2, #3, or #4: 1[facility] [address] [place], [place], [id number] TROPONIN-I 0.14 ng/mL (Abnormal) Comments: TROPONIN-I EXPECTED VALUES <0.05 NEGATIVE 0.06 - 0.59 AT RISK OF MD > OR = 0.60 SUGGEST MD 5-Fad-055933:16 HgA1C , Office (51258) HgA1C , Office 7.9 % (Abnormal) Range: 4.6 - 7.1 0-Qdv-143467:15 Blood Glucose , Office (14088) Blood Glucose , Office 166 (Normal) 1-Zsd-819106:25 Basic Metabolic Profile (BMP) Comments: Order Date: 12/13/16Order Info: [id number] - *BMPComments: Reason:[facility] [address] [place], [place], [address] GAP 9 (Normal) Range: 5-15 CO2 29.0 [...] 200 mg/dLsuggests DIABETES MELLITUS per A.D.A. criteria. 69-Jsy-721061:27 Basic Metabolic Profile (BMP) Comments: Order Date: 11/19/16Order Info: [id number] - *BMPComments: Reason:[facility] [address] [place], [place], [address] GAP 8 (Normal) Range: 5-15 CO2 27.0 [...] 200 mg/dLsuggests DIABETES MELLITUS per A.D.A. criteria. 57-Dxg-885713:27 Partial Thromboplast Time Comments: Order Date: 11/19/16Order Info: [id number] - *PT/INROrder Info: [id number] - *PTT-[facility] Thromboplast[facility] TimeWMans[facility] Wcnzcjbyoj[address] [place], [place], [address] PTT 29.4 s (Normal) Range: 24.1-36.2 :27 Prothrombin Time w/INR Comments: Order Date: 11/19/16Order Info: [id number] - *PT/INROrder Info: [id number] - *PTT-Partial Thromboplastin TimeWMansfield Hospital [address]sjikfleyq[address] [place], [place], [address](186) INR 1.1 (Normal) PROTIME 13.4 s (Normal) Range: 11.7-14.9 :05 Basic Metabolic Profile (BMP) Comments: 'TROP' Serial specimen #1, #2, #3, or #4: 1[facility] Q[address]xs[address] [place], [place], [address] GAP 10 (Normal) Range: 5-15 CO2 25.0 [...] BNP,B-Type NATRIURETIC PEPTIDE Comments: [facility] Cxjvfeyixm7093 [facility]. [place], [place], [address] B-TYPE ANDREW PEP 316.0 pg/mL (Abnormal) Range: 0-100 :05 CBC W/Diff, Automated Comments: [facility] Juyhxtxmjv7971 [facility]. [place], [place], [address] Absolute Lymph 1.26 {X10_3/ul} (Normal) Range: 0.83-4.51 [...] Serial specimen #1, #2, #3, or #4: [address] [place] [address] [address] [place], [address] TROPONIN-I 0.15 ng/mL (Abnormal) Comments: TROPONIN-I EXPECTED VALUES <0.05 NEGATIVE 0.06 - 0.59 AT RISK OF MD > OR = 0.60 SUGGEST MD 6-Oca-935261:10 Basic Metabolic Profile (BMP) Comments: 'TROP' Serial specimen #1, #2, #3, or #4: [address] [place] [address] [address] [place], [address] GAP 13 (Normal) Range: 5-15 [...] A.D.A. criteria. :10 CBC W/Diff, Automated Comments: [facility] Nk[address]ivabp[address] [place], [address] Absolute Lymph 2.88 {X10_3/ul} (Normal) [...] Serial specimen #1, #2, #3, or #4: 1[facility] [address]sycjrf[address] [place], [address] TSH 1.29 {uIU/mL} (Normal) Range: 0.358-3.74 :10 Troponin-I Comments: 'TROP' Serial specimen #1, #2, #3, or #4: [facility] [address]uxudkajl8[address] [place], [address] TROPONIN-I < 0.02 ng/mL (Normal) Comments: TROPONIN-I EXPECTED VALUES <0.05 NEGATIVE 0.06 - 0.59 AT RISK OF MD > OR = 0.60 SUGGEST MD :58 HgA1C , Office (47319) HgA1C , Office 7.6 % (Abnormal) Range: 4.6 - 7.1 :58 Blood Glucose , Office (81872) Blood Glucose , Office 159 (Normal) :50 CBC W/Diff, Automated Comments: [facility] [address] [place], [address] Absolute Lymph 1.46 {X10_3/ul} (Normal) [...] 4.2-5.4 WBC 7.3 K/mm3 (Normal) Range: 4.4-11.0 23-Kfw-161787:50 CCP IgG Antibodies Comments: [facility] (refer to report for specific site)refer to report for address and phone number ANTI-CCP 340474 4 {units} (Normal) Range: 0-19 Comments: Negative <20 Weak positive 20 - 39 Moderate positive 40 - 59 Strong positive >59 88-Obr-519835:50 Comprehensive Metabolic Profil Comments: [facility] [address]iffcelc[address] [place], [address] GAP 9 (Normal) Range: 5-15 CO2 26.0 [...] 126 mg/dLsuggests DIABETES MELLITUS per A.D.A. criteria. 84-Pfm-869606:50 CRP Comments: [facility] Rjetxyrwhl0214 [facility]. [place], [place], [address] C-REACTIVE PROT 8.89 mg/L (Abnormal) Range: 0.0-3.0 Comments: C-Reactive Protein (CRP) provides useful information for thediagnosis, therapy and monitoring of inflammatory processesand associated diseases. For the evaluation of Relative Riskfor Cardiovascular Dise ase, a High Sensitivity CRP (HSCRP)should be ordered. 84-Zpu-273908:50 Erythrocyte Sed Rate Comments: [facility] Icnmsrrbrt0335 [facility]. [place], [place], [address] SED RATE 27 mm/h (Normal) Range: 0-30 95-Vla-164609:50 Hep B Surface Antibodies Comments: [facility] (refer to report for specific site)refer to report for address and phone number Hep B Booker AB Non Reactive (Normal) Comments: Non Reactive: Inconsistent with immunity, less than 10 mIU/mL Reactive: Consistent with immunity, greater than 9.9 mIU/ mL 02-Dnk-760967:50 Hepatitis B Surface Ag Comments: [facility] (refer to report for specific site)refer to report for address and phone number HB SURF AG Negative (Normal) Comments: Performed at: CB - [facility] [address] [id number] Director: Christopher Sullivan PhD, Phone: [phone] at: - [facility] [address] [id number] Director: Loco Ivey MD, Phone: [phone] 98-Div-141131:50 Hepatitis C Antibodies Comments: [facility] (refer to report for specific site)refer to report for address and phone number HEP C AB <0.1 {s/co_ratio} (Normal) Range: 0.0-0.9 Comments: Negative: < 0.8 Indeterminate: 0.8 - 0.9 Positive: > 0.9 The CDC recommends that a positive HCV antibody result be followed up with a HCV Nucleic Acid Amplification test (729130). :50 Rheumatoid Factor Comments: [facility] [address] [place], [address] RHEUMATOID FAC < 10.0 {IU/mL} (Normal) :50 Uric Acid Comments: [facility] [address] [facility] [place], [address] URIC 7.1 mg/dL (Abnormal) Range: 2.6-6.0 Comments: The drugs N-Acetylcysteine and Metamizole may falselydepress this assay. :03 Unable to Void SPRCS (Normal) Comments: PATIENT WAS FASTINGPERFORMED BY: [facility] [id number] Comments: The patient was not able to render a urine sample and has beeninstructed to return for a urine collection at their earliestconvenience. The urine testing that you have requested hasbeen deleted from th is report. When the patient returns andprovides a urine specimen, the urine testing will be performedand separately reported. :03 VITAMIN B-12 (CYANOCOBALAMIN) Comments: PATIENT WAS FASTINGPERFORMED BY: [employer]70 [facility] [id number] (79386) Vitamin B12 264 pg/mL (Normal) Range: 211-946 :03 METABOLIC PANEL, COMPREHENSIVE Comments: PATIENT WAS FASTINGPERFORMED BY: [employer] [facility] [id number] (83827) ALT (SGPT) 7 [iU]/L (Normal) Range: 0-32 [...] mg/dL (Abnormal) Range: 65-99 :03 LIPID PANEL (24448) Comments: PATIENT WAS FASTINGPERFORMED BY: [facility] [id number] VLDL Cholesterol Jyoti VLDLCH mg/dL (Normal) Range: 5-40 Comments: The calculation for the VLDL cholesterol is not valid whentriglyceride level is >400 mg/dL.Triglyceride result indicated is too high for an accurate LDLcholesterol estimation. HDL Cholesterol 26 mg/dL (Abnormal) Triglycerides 542 mg/dL (Abnormal) Range: 0-149 Cholesterol, Total 183 mg/dL (Normal) Range: 100-199 :03 CBC W/AUTO DIFF WBC (09389) Comments: PATIENT WAS FASTINGPERFORMED BY: [employer]70 [facility] [id number] Immature Grans (Abs) 0.0 {x10E3/uL} (Normal) Range: [...] 3.77-5.28 WBC 8.1 {x10E3/uL} (Normal) Range: 3.4-10.8 80-Agr-954013:48 HgA1C , Office (06538) HgA1C , Office 8.0 % (Abnormal) Range: 4.6 - 7.1 :48 Blood Glucose , Office (40143) Blood Glucose , Office 166 (Normal) 6-Doy-767550:06 CALCIFEDIOL (45311) Comments: PATIENT NOT FASTINGPERFORMED BY: [facility]The [facility] FallsOhdzqb2742 [facility] [id number] Vitamin D, 25-Hydroxy 51.1 ng/mL (Normal) Range: 30.0-100.0 Comments: Vitamin D deficiency has been defined by the [place] [facility] and an Endocrine Society practice guideline as alevel of serum 25-OH vitamin D less than 20 ng/mL (1,2).The Endocrine Society went on to further define vitamin Dinsufficiency as a level between 21 and 29 ng/mL (2).1. IOM ([place] of [place]). 2010. Dietary reference intakes for calcium and D. [place]: The National Academies Press.2. Bobo MF, Estrellita STOCKTON, Maddi CALIX, et al. Evaluation, treatment, and prevention of vitamin D deficiency: an Endocrine Society clinical practice guideline. JCEM. 2010; 96(7):0961-30. 2-Mli-073881:06 CBC, PLATELETS & AUT DIFF Comments: PATIENT NOT FASTINGPERFORMED BY: [facility] Nbstwy8604 [facility] [id number] (21226) Immature Grans (Abs) 0.0 {x10E3/uL} (Normal) Range: [...] (Normal) Range: 3.4-10.8 :36 HgA1C , Office (41289) HgA1C , Office 8.0 % (Abnormal) Range: 4.6 - 7.1 :36 Blood Glucose , Office (06498) Blood Glucose , Office 155 (Normal) :39 METABOLIC PANEL, COMPREHENSIVE Comments: PATIENT WAS FASTINGPERFORMED BY: [facility]The [facility] T[facility] FallsLyucei3843 [facility] [id number] (47804) ALT (SGPT) 6 [iU]/L (Normal) Range: 0-32 [...] mg/dL (Abnormal) Range: 65-99 :39 LIPID PANEL (33023) Comments: PATIENT WAS FASTINGPERFORMED BY: M-ChangaThe [facility] Hospital of Tinton FallsCzofcw6423 [facility] [id number] LDL/HDL Ratio 3.6 {ratio_units} (Abnormal) Range: 0.0-3.2 Comments: LDL/HDL Ratio Men Women 1/2 Avg.Risk 1.0 1.5 Av g.Risk 3.6 3.2 2X Avg.Risk 6.2 5.0 3X Avg.Risk 8.0 6.1 LDL Cholesterol Calc 104 mg/dL (Abnormal) Range: 0-99 VLDL Cholesterol Jyoti 72 mg/dL (Abnormal) Range: 5-40 HDL Cholesterol 29 mg/dL (Abnormal) Triglycerides 359 mg/dL (Abnormal) Range: 0-149 Cholesterol, Total 205 mg/dL (Abnormal) Range: 100-199 57-Lbo-280812:49 Blood Glucose , Office (93955) Blood Glucose , Office 159 (Normal) 79-Bgi-968154:49 HgA1C , Office (47576) HgA1C , Office 8.1 % (Abnormal) Range: 4.6 - 7.1 96-Cre-821885:03 VITAMIN B-12 (CYANOCOBALAMIN) Comments: PATIENT WAS FASTINGPERFORMED BY: [facility]6370 [facility] [id number] (97754) Vitamin B12 319 pg/mL (Normal) Range: 211-946 49-Zlz-412178:03 LIPID PANEL (77973) Comments: PATIENT WAS FASTINGPERFORMED BY: [facility]6370 [facility] [id number] VLDL Cholesterol Jyoti VLDLCH mg/dL (Normal) Range: [...] Cholesterol, Total 192 mg/dL (Normal) Range: 100-199 80-Bhr-280751:03 Vitamin D Hydroxy (82514) Comments: PATIENT WAS FASTINGPERFORMED BY: M-ChangaThe [facility] Hospital of Tinton FallsScraht1288 [facility] [id number] Vitamin D, 25-Hydroxy 21.1 ng/mL (Abnormal) Range: 30.0-100.0 Comments: Vitamin D deficiency has been defined by the [place] [facility]cine and an Endocrine Society practice guideline as alevel of serum 25-OH vitamin D less than 20 ng/mL (1,2).The Endocrine Society went on to further define vitamin Dinsufficiency as a level between 21 and 29 ng/mL (2).1. IOM ([place]). 2010. Dietary reference intakes for calcium and D. [place]: The National Academies Press.2. Bobo MF, Estrellita STOCKTON, Maddi CALIX, et al. Evaluation, treatment, and prevention of vitamin D deficiency: an Endocrine Society clinical practice guideline. JCEM. 2010; 96(7): 1911-30.; ADDENDA: non-emergent till apt next week 64-Yeu-263235:03 MICROALBUMIN: CREATININE RATIO Comments: PATIENT WAS FASTINGPERFORMED BY: M-Changa Ujlvrk2352 [facility] [id number] (87227) AND (28080) Microalb/Creat Ratio 26.1 {mg/g_creat} (Normal) Range: 0.0-30.0 Microalbumin, Urine 20.0 ug/mL (Normal) Creatinine, Urine 76.5 mg/dL (Normal) 03-Jwp-749671:03 CBC W/AUTO DIFF WBC Comments: PATIENT WAS FASTINGPERFORMED BY: M-ChangaThe [facility] Hospital of Tinton FallsIbitbg3025 [facility] [id number] Information: [id number] (62956) Immature Grans (Abs) 0.0 {x10E3/uL} (Normal) Range: [...] 3.77-5.28 WBC 8.1 {x10E3/uL} (Normal) Range: 3.4-10.8 05-Xay-318500:03 METABOLIC PANEL, COMPREHENSIVE Comments: PATIENT WAS FASTINGPERFORMED BY: [facility]CoThe [facility] FallsCrmvvv0008 [facility] [id number] (88833) ALT (SGPT) 7 [iU]/L (Normal) Range: 0-32 [...] (Abnormal) Range: 65-99 :53 Vitamin D Hydroxy (26059) Comments: PATIENT WAS FASTINGPERFORMED BY: Rep70 DBVu [facility] [id number] Vitamin D, 25-Hydroxy 25.5 ng/mL (Abnormal) Range: 30.0-100.0 Comments: Vitamin D deficiency has been defined by the [place] of[place]icine and an Endocrine Society practice guideline as alevel of serum 25-OH vitamin D less than 20 ng/mL (1,2).The Endocrine Society went on to further define vitamin Dinsufficiency as a level between 21 and 29 ng/mL (2).1. IOM ([place]). 2010. Dietary reference intakes for calcium and D. [place]: The National Academies Press.2. Bobo MF, Estrellita [place], Maddi CALIX, et al. Evaluation, treatment, and prevention of vitamin D deficiency: an Endocrine Society clinical practice guideline. JCEM. 2010; 96(7):1911-30. :53 LIPID PANEL (51216) Comments: PATIENT WAS FASTINGPERFORMED BY: [employer]6370 [facility] [id number] LDL/HDL Ratio 3.7 {ratio_units} (Abnormal) Range: 0.0-3.2 [...] PANEL, COMPREHENSIVE Comments: PATIENT WAS FASTINGPERFORMED BY: [facility]CoThe [facility] T[facility] FallsEwofqf8132 [facility] [id number] (24405) ALT (SGPT) 5 [iU]/L (Normal) Range: 0-32 [...] mg/dL (Abnormal) Range: 65-99 :34 HGB A1C (09870) Comments: PATIENT WAS FASTINGPERFORMED BY: [employer]6370 [facility] [place] [id number] Hemoglobin A1c 8.9 % (Abnormal) Range: 4.8-5.6 Comments: . Pre-diabetes: 5.7 - 6.4 Diabetes: >6.4 Glycemic control for adults with diabetes: <7.0 :11 VITAMIN B-12 (CYANOCOBALAMIN) Comments: B12lot:5200exp:06/26site:lt deltroute:EPIFANIOdose:chilo Camargo; PATIENT WAS FASTINGPERFORMED BY: M-Changa Gmente2521 [facility] [id number] (34530) Vitamin B12 301 pg/mL (Normal) Range: 211-946 :11 Vitamin D Hydroxy (55304) Comments: PATIENT WAS FASTINGPERFORMED BY: [facility] Cengxl0054 [facility] [id number] Vitamin D, 25-Hydroxy 20.3 ng/mL (Abnormal) Range: 30.0-100.0 Comments: Vitamin D deficiency has been defined by the [place] of[place]icine and an Endocrine Society practice guideline as alevel of serum 25-OH vitamin D less than 20 ng/mL (1,2).The Endocrine Society went on to further define vitamin Dinsufficiency as a level between 21 and 29 ng/mL (2).1. IOM ([place]). 2010. Dietary reference intakes for calcium and D. [place]: The National Academies Press.2. Bobo MF, Estrellita [place], Maddi CALIX, et al. Evaluation, treatment, and prevention of vitamin D deficiency: an Endocrine Society clinical practice guideline. JCEM. 2010; 96(7):1911-30. :11 METABOLIC PANEL, Comments: PATIENT WAS FASTINGPERFORMED BY: BELKYS M-Changa Gpfhbw7841 [facility] [id number] Information: [id number] COMPREHENSIVE (42712) ALT (SGPT) 6 [iU]/L (Normal) Range: 0-32 [...] mg/dL (Abnormal) Range: 65-99 :11 LIPID PANEL (88553) Comments: PATIENT WAS FASTINGPERFORMED BY: M-Changa Gmfumf5418 [facility] [id number]; will review on 07/04 LDL/HDL Ratio 4.0 [...] mg/dL (Abnormal) Range: 100-199 :11 HGB A1C (47850) Comments: PATIENT WAS FASTINGPERFORMED BY: [facility] Dcgitf1927 [facility] [id number] Hemoglobin A1c 8.5 % (Abnormal) Range: 4.8-5.6 Comments: . Pre-diabetes: 5.7 - 6.4 Diabetes: >6.4 Glycemic control for adults with diabetes: <7.0 :16 Vitamin D Hydroxy (54464) Comments: PATIENT WAS FASTINGPERFORMED BY: [facility] Lfducc0415 [facility] [id number] Vitamin D, 25-Hydroxy 21.3 ng/mL (Abnormal) Range: 30.0-100.0 Comments: Vitamin D deficiency has been defined by the [place] [facility]cine and an Endocrine Society practice guideline as alevel of serum 25-OH vitamin D less than 20 ng/mL (1,2).The Endocrine Society went on to further define vitamin Dinsufficiency as a level between 21 and 29 ng/mL (2).1. IOM ([place]). 2010. Dietary reference intakes for calcium and D. [place]: The National Academies Press.2. Bobo MF, Estrellita STOCKTON, Maddi CALIX, et al. Evaluation, treatment, and prevention of vitamin D deficiency: an Endocrine Society clinical practice guideline. JCEM. 2010; 96(7):1911-30. :16 VITAMIN B-12 (CYANOCOBALAMIN) Comments: PATIENT WAS FASTINGPERFORMED BY: BELKYS M-ChangaAlbuquerque Indian Dental ClinicCboqcv7516 [facility] [id number] (47486) Vitamin B12 283 pg/mL (Normal) Range: 211-946 :16 CBC W/AUTO DIFF WBC Comments: PATIENT WAS FASTINGPERFORMED BY: M-ChangaAlbuquerque Indian Dental ClinicQiapom3688 [facility] [id number] Information: [id number] (19353) Immature Grans (Abs) 0.0 {x10E3/uL} (Normal) Range: [...] {x10E3/uL} (Normal) Range: 3.4-10.8 :16 LIPID PANEL (67329) Comments: PATIENT WAS FASTINGPERFORMED BY: [facility]CoThe [facility] T[facility] FallsNiyjss1563 [facility] [id number] VLDL Cholesterol Jyoti VLDLCH mg/dL (Normal) Range: [...] Cholesterol, Total 168 mg/dL (Normal) Range: 100-199 03-Fxu-203445:49 HGB A1C (67989) Comments: PATIENT NOT FASTINGPERFORMED BY: M-ChangaThe [facility] Hospital of Tinton FallsOverle8416 [facility] [id number] Information: [id number] Hemoglobin A1c 8.1 % (Abnormal) Range: 4.8-5.6 Comments: . Pre-diabetes: 5.7 - 6.4 Diabetes: >6.4 Glycemic control for adults with diabetes: <7.0 40-Esd-15204:30 VITAMIN B-12 (CYANOCOBALAMIN) Comments: PATIENT WAS FASTINGPERFORMED BY: M-ChangaThe [facility] Hospital of Tinton FallsQdtdrj2981 [facility] [id number] (45400) Vitamin B12 325 pg/mL (Normal) Range: 211-946 56-Rqo-47370:30 CBC (AUTO) (47272) Comments: PATIENT WAS FASTINGPERFORMED BY: M-ChangaThe Rehabilitation Hospital of Tinton FallsOkpjft4726 [facility] [id number] Platelets 309 {x10E3/uL} (Normal) Range: 150-379 RDW 14.8 % (Normal) Range: 12.3-15.4 MCHC 31.1 g/dL (Abnormal) Range: 31.5-35.7 MCH 25.6 pg (Abnormal) Range: 26.6-33.0 MCV 82 fL (Normal) Range: 79-97 Hematocrit 39.2 % (Normal) Range: 34.0-46.6 Hemoglobin 12.2 g/dL (Normal) Range: 11.1-15.9 RBC 4.77 {x10E6/uL} (Normal) Range: 3.77-5.28 WBC 10.9 {x10E3/uL} (Abnormal) Range: 3.4-10.8 :30 Vitamin D Hydroxy (57828) Comments: PATIENT WAS FASTINGPERFORMED BY: M-Changa Dtiiyt2368 [facility] [id number] Vitamin D, 25-Hydroxy 19.9 ng/mL (Abnormal) Range: 30.0-100.0 Comments: Vitamin D deficiency has been defined by the [place] of[place]icine and an Endocrine Society practice guideline as alevel of serum 25-OH vitamin D less than 20 ng/mL (1,2).The Endocrine Society went on to further define vitamin Dinsufficiency as a level between 21 and 29 ng/mL (2).1. IOM ([place]). 2010. Dietary reference intakes for calcium and D. [place]: The National Academies Press.2. Bobo MF, Estrellita NC, Maddi CALIX, et al. Evaluation, treatment, and prevention of vitamin D deficiency: an Endocrine Society clinical practice guideline. JCEM. 2010; 96(7): 1911-30.; ADDENDA: non-emergent till tomorrows apt :30 LIPID PANEL (50154) Comments: PATIENT WAS FASTINGPERFORMED BY: FlightCar6370 [facility] [id number] VLDL Cholesterol Jyoti VLDLCH mg/dL (Normal) Range: [...] CREATININE RATIO Comments: PATIENT WAS FASTINGPERFORMED BY: M-ChangaThe [facility] Hospital of Tinton FallsJinafm9639 [facility] [id number] (78720) AND (75889) Microalb/Creat Ratio 190.8 {mg/g_creat} (Abnormal) Range: 0.0-30.0 Microalbumin, Urine 66.6 ug/mL (Abnormal) Range: 0.0-17.0 Creatinine, Urine 34.9 mg/dL (Normal) Range: 15.0-278.0 :30 METABOLIC PANEL, Comments: PATIENT WAS FASTINGPERFORMED BY: [facility] [id number] Information: [id number] COMPREHENSIVE (29978) ALT (SGPT) 6 [iU]/L (Normal) Range: 0-32 [...] (Abnormal) Range: 65-99 :59 Vitamin D Hydroxy (13533) Comments: PATIENT NOT FASTINGPERFORMED BY: Smallable[place]rom[place] [id number]; apt. -15 Vitamin D, 25-Hydroxy 21.4 ng/mL (Abnormal) Range: 30.0-100.0 Comments: Vitamin D deficiency has been defined by the [place] of[place]icine and an Endocrine Society practice guideline as alevel of serum 25-OH vitamin D less than 20 ng/mL (1,2).The Endocrine Society went on to further define vitamin Dinsufficiency as a level between 21 and 29 ng/mL (2).1. IOM ([place] of Medicine). 2010. Dietary reference intakes for calcium and D. [place]: The National Academies Press.2. Bobo MF, Estrellita NC, Maddi CALIX, et al. Evaluation, treatment, and prevention of vitamin D deficiency: an Endocrine Society clinical practice guideline. JCEM. 2010; 96(7):1911-30. :59 LIPID PANEL (37306) Comments: PATIENT NOT FASTINGPERFORMED BY: [employer] [facility] Yjbbdx9069 [facility] [id number] VLDL Cholesterol Jyoti VLDLCH mg/dL (Normal) Range: [...] B-12 (CYANOCOBALAMIN) Comments: PATIENT NOT FASTINGPERFORMED BY: [facility] Sphxdy2743 [facility] [id number] (74229) Vitamin B12 500 pg/mL (Normal) Range: 211-946 :59 CBC W/AUTO DIFF WBC Comments: PATIENT NOT FASTINGPERFORMED BY: [employer] [facility] Dfuycj6658 [facility] [id number] Information: [id number] (89647) Immature Grans (Abs) 0.0 {x10E3/uL} (Normal) Range: [...] PANEL, COMPREHENSIVE Comments: PATIENT NOT FASTINGPERFORMED BY: LabCoThe Rehabilitation Hospital of T[facility] FallsFqdmfu6480 [facility] [id number] (64010) ALT (SGPT) 6 [iU]/L (Normal) Range: 0-32 [...] Range: 65-99 :38 Blood Glucose , Office (55959) Blood Glucose , Office 198 (Normal) :38 HgA1C , Office (83417) HgA1C , Office 9.1 % (Abnormal) Range: 4.6 - 7.1 :40 Allergens, Zone 8 Comments: Test(s) 243228-R993-JpF Cockroach, Haitian; 366188-N233-RyN BeaverLaura; 896040-W467-GpO Sweet Gumwere developed and had performance characteristicsdetermined by [employer]. These tests have not been c leared orapproved by the U.S. Food and Drug Administration. The FDAhas determined that such clearance or approval is notnecessary. These tests are used for clinical purposes.These should not be regarded as investigational or forresearch.Test performed at:[facility] [address] [place] [address] ; handled by jennifer VANG COMMENT Comment [...] NETTLE <0.10 kU/L (Normal) Comments: Performed at: [address] [id number] Director: Loco Ivey MD, Phone: [phone] SHEEP SORREL <0.10 kU/L (Normal) PIGWEED, ROUGH [...] (Normal) :40 Immunoglobulin E Comments: Test performed at:[facility] Sphsyxesdp9410 [facility] [address]. [place], [place] [id number] IMMUNO E 53 {IU/mL} (Normal) Range: 0-100 Comments: Performed at: [address] [id number] Director: Christopher Sullivan PhD, Phone: [phone]; ADDENDA: handled by jennifer 65-Nzy-641411:26 HgA1C , Office (56523) HgA1C , Office 9.6 % (Abnormal) Range: 4.6 - 7.1 5-Dia-179709:31 BNP,B-Type NATRIURETIC PEPTIDE Comments: Test performed at:[facility] Lyazuaxmes5086 [facility] [place] [address] B-TYPE ANDREW PEP 58.8 pg/mL (Normal) Range: 0-100 89-Kuu-977798:04 IRON BINDING CAPACITY (TIBC) Comments: PERFORMED BY: [address] [id number] (35289) Iron Saturation 11 % (Abnormal) Range: 15-55 Iron, Serum 47 ug/dL (Normal) Range: 35-155 UIBC 362 ug/dL (Normal) Range: 150-375 Iron Bind.Cap.(TIBC) 409 ug/dL (Normal) Range: 250-450 77-Qwf-224087:04 FERRITIN (47937) Comments: PERFORMED BY: [facility] [place] [address] [id number] Ferritin, Serum 32 ng/mL (Normal) Range: 15-150 49-Xnj-724729:04 VITAMIN B-12 (CYANOCOBALAMIN) Comments: PERFORMED BY: [facility] [place] [address] [id number] (54976) Vitamin B12 304 pg/mL (Normal) Range: 211-946 38-Uwh-835034:04 Vitamin D Hydroxy (47463) Comments: PERFORMED BY: M-Changa Naupvo7837 [facility] [id number] Vitamin D, 25-Hydroxy 17.5 ng/mL (Abnormal) Range: 30.0-100.0 Comments: Vitamin D deficiency has been defined by the [place] ofK[facility] Hospitalcine and an Endocrine Society practice guideline as alevel of serum 25-OH vitamin D less than 20 ng/mL (1,2).The Endocrine Society went on to further define vitamin Dinsufficiency as a level between 21 and 29 ng/mL (2).1. IOM ([place] of [place]). 2010. Dietary reference intakes for calcium and D. [place]: The National Academies Press.2. Bobo MF, Estrellita STOCKTON, Maddi CALIX, et al. Evaluation, treatment, and prevention of vitamin D deficiency: an Endocrine Society clinical practice guideline. JCEM. 2010; 96(7):1911-30. 35-Zns-138239:04 LIPID PANEL (24590) Comments: PERFORMED BY: [employer]6370 [facility] [id number] VLDL Cholesterol Jyoti VLDLCH mg/dL (Normal) Range: [...] Cholesterol, Total 166 mg/dL (Normal) Range: 100-199 57-Jqw-028451:04 CBC W/AUTO DIFF WBC (50858) Comments: PERFORMED BY: M-Changa Btrrrl7840 [facility] [id number] Immature Grans (Abs) 0.0 {x10E3/uL} (Normal) Range: [...] 3.77-5.28 WBC 7.3 {x10E3/uL} (Normal) Range: 3.4-10.8 28-Lho-987980:04 METABOLIC PANEL, COMPREHENSIVE Comments: PERFORMED BY: [facility]6370 [facility] [id number] (11481) ALT (SGPT) 5 [iU]/L (Normal) Range: 0-32 [...] Glucose, Serum 279 mg/dL (Abnormal) Range: 65-99 21-Bcx-815616:18 HgA1C , Office (16948) HgA1C , Office 8.3 % (Abnormal) Range: 4.6 - 7.1 00-Nuv-540157:12 Rapid Flu (49258 x 2) Influenza A Ag negative (Normal) 35-Dlh-562674:43 BNTP (16144) Comments: PATIENT NOT FASTINGPERFORMED BY: LabCoThe [facility] Hospital of T[facility] FallsTlwqsf5870 [facility] [id number] Information: [id number] B-Type Natriuretic Peptide 67.8 pg/mL (Normal) Range: 0.0-100.0 4-Sng-740655:12 CBCD ALC 1.70 {X10_3/ul} (Normal) Range: 0.83-4.51 [...] A.D.A. criteria. :14 Blood Glucose , Office (92790) Blood Glucose , Office 112 (Normal) :14 HgA1C , Office (29611) HgA1C , Office 7.3 % (Abnormal) Range: 4.6 - 7.1 00-Xvx-372186:45 WESTON Negative (Normal) Comments: Performed at: CB - [facility] [address] [id number] Director: Nick Cali PhD, Phone: [phone] 12-Xhx-743445:45 CBCD ALC 1.65 {X10_3/ul} (Normal) Range: 0.83-4.51 [...] - 59Strong positive >59Performed at: - [facility] [address] [id number] Director: Loco Ivey MD, Phone: [phone] 32-Tqe-663698:45 CMP GAP 4 (Abnormal) Range: 5-15 CO2 [...] 7-18 GLU 99 mg/dL (Normal) Range: 70-110 51-Egi-662353:45 CRP < 2.90 mg/L (Normal) Range: 0.0-3.0 [...] ng/mL (>250 nmol/L) :46 Vitamin D Hydroxy (94391) Comments: PATIENT WAS FASTINGPERFORMED BY: M-Changa Etawny8385 [facility] [id number] Vitamin D, 25-Hydroxy 22.7 ng/mL (Abnormal) Range: 30.0-100.0 Comments: Vitamin D deficiency has been defined by the [place] of[place]icine and an Endocrine Society practice guideline as alevel of serum 25-OH vitamin D less than 20 ng/mL (1,2).The Endocrine Society went on to further define vitamin Dinsufficiency as a level between 21 and 29 ng/mL (2).1. IOM ([place]). 2010. Dietary reference intakes for calcium and D. [place]: The National Academies Press.2. Bobo MF, Estrellita STOCKTON, Maddi CALIX, et al. Evaluation, treatment, and prevention of vitamin D deficiency: an Endocrine Society clinical practice guideline. JCEM. 2010; 96(7):1911-30. :46 MICROALBUMIN: CREATININE RATIO Comments: PATIENT WAS FASTINGPERFORMED BY: M-Changa Zauuuq1829 [facility] [id number] (02533) AND (62890) Microalb/Creat Ratio 37.1 {mg/g_creat} (Abnormal) Range: 0.0-30.0 Microalbumin, Urine 29.9 ug/mL (Abnormal) Range: 0.0-17.0 Creatinine, Urine 80.5 mg/dL (Normal) Range: 15.0-278.0 :46 METABOLIC PANEL, COMPREHENSIVE Comments: PATIENT WAS FASTINGPERFORMED BY: M-Changa Ivwswo5943 [facility] [id number] (29483) ALT (SGPT) 7 [iU]/L (Normal) Range: 0-32 [...] mg/dL (Abnormal) Range: 65-99 :46 LIPID PANEL (46803) Comments: PATIENT WAS FASTINGPERFORMED BY: FlightCar6370 [facility] [id number] LDL/HDL Ratio 2.1 {ratio_units} (Normal) Range: 0.0-3.2 [...] AUT DIFF Comments: PATIENT WAS FASTINGPERFORMED BY: [employer]70 [facility] [id number] Information: [id number] (14842) Hematology Comments: Note: (Normal) Comments: Verified by [...] 3.77-5.28 WBC 10.8 {x10E3/uL} (Normal) Range: 3.4-10.8 94-Deu-37656:46 VITAMIN B-12 (CYANOCOBALAMIN) Comments: PATIENT WAS FASTINGPERFORMED BY: LabCoThe [facility] Hospital of Tinton FallsFmashu3401 [facility] [id number] (75587) Vitamin B12 254 pg/mL (Normal) Range: 211-946 9-Pcw-958553:10 HgA1C , Office (12319) HgA1C , Office 6.8 % (Normal) Range: 4.6 - 7.1 3-Xet-941846:10 Blood Glucose , Office (52724) Blood Glucose , Office 146 (Normal) Comments: non-fasting :36 LIPID PANEL (46117) Comments: PATIENT WAS FASTINGPERFORMED BY: LabCoThe [facility] Hospital of T[facility] FallsOsurdl9250 [facility] [id number] VLDL Cholesterol Jyoti VLDLCH mg/dL (Normal) Range: [...] DIFF Comments: PATIENT WAS FASTINGPERFORMED BY: [facility] Ehpoos3843 [facility] [id number] Information: [id number] (67994) Immature Grans (Abs) 0.0 {x10E3/uL} (Normal) Range: [...] PANEL, COMPREHENSIVE Comments: PATIENT WAS FASTINGPERFORMED BY: LabCoThe [facility] Hospital of T[facility] FallsCwehxm0913 [facility] [id number] (54883) ALT (SGPT) 6 [iU]/L (Normal) Range: 0-32 [...] (Abnormal) Range: 65-99 :36 Vitamin D Hydroxy (87139) Comments: PATIENT WAS FASTINGPERFORMED BY: M-Changa Kzfqwn4609 Ryan RoadDublin [place] [id number] Vitamin D, 25-Hydroxy 17.5 ng/mL (Abnormal) Range: 30.0-100.0 Comments: Vitamin D deficiency has been defined by the [place] ofK[facility] Hospitalcine and an Endocrine Society practice guideline as alevel of serum 25-OH vitamin D less than 20 ng/mL (1,2).The Endocrine Society went on to further define vitamin Dinsufficiency as a level between 21 and 29 ng/mL (2).1. IOM ([place]). 2010. Dietary reference intakes for calcium and D. [place]: The National Academies Press.2. Bobo MF, Estrellita STOCKTON, Maddi CALIX, et al. Evaluation, treatment, and prevention of vitamin D deficiency: an Endocrine Society clinical practice guideline. JCEM. 2010; 96(7):1911-30. :36 VITAMIN B-12 (CYANOCOBALAMIN) Comments: PATIENT WAS FASTINGPERFORMED BY: M-Changarp Vntdne5871 Ryan RoadDublin [place] [id number] (34949) Vitamin B12 264 pg/mL (Normal) Range: 211-946 :36 IRON (71797) Comments: PATIENT WAS FASTINGPERFORMED BY: [facility] Jfnrjw0884 Ryan RoadDublin [place] [id number] Iron, Serum 52 ug/dL (Normal) Range: 35-155 11-Bdk-469332:54 HgA1C , Office (46241) HgA1C , Office 7.1 % (Normal) Range: 4.6 - 7.1 :09 VITAMIN B-12 (CYANOCOBALAMIN) Comments: PATIENT WAS FASTINGPERFORMED BY: [facility] Kcmsmn0790 [facility] [id number] (77544) Vitamin B12 704 pg/mL (Normal) Range: 211-946 :09 Vitamin D Hydroxy (09650) Comments: PATIENT WAS FASTINGPERFORMED BY: GENWIFormerly [facility]6370 [facility] [id number] Vitamin D, 25-Hydroxy 21.8 ng/mL (Abnormal) Range: 30.0-100.0 Comments: Vitamin D deficiency has been defined by the [place] of[place]icine and an Endocrine Society practice guideline as alevel of serum 25-OH vitamin D less than 20 ng/mL (1,2).The Endocrine Society went on to further define vitamin Dinsufficiency as a level between 21 and 29 ng/mL (2).1. IOM ([place]). 2010. Dietary reference intakes for calcium and D. [place]: The National Academies Press.2. Bobo MF, Estrellita STOCKTON, Maddi CALIX, et al. Evaluation, treatment, and prevention of vitamin D deficiency: an Endocrine Society clinical practice guideline. JCEM. 2010; 96(7):1911-30. :09 MICROALBUMIN: CREATININE RATIO Comments: PATIENT WAS FASTINGPERFORMED BY: M-ChangaThe Rehabilitation Hospital of Tinton FallsLehjwh4236 [facility] [id number] (24041) AND (21980) Microalb/Creat Ratio 24.2 {mg/g_creat} (Normal) Range: 0.0-30.0 Microalbumin, Urine 37.1 ug/mL (Abnormal) Range: 0.0-17.0 Creatinine, Urine 153.6 mg/dL (Normal) Range: 15.0-278.0 :09 METABOLIC PANEL, COMPREHENSIVE Comments: PATIENT WAS FASTINGPERFORMED BY: GENWIFormerly [facility]6370 [facility] [id number] (24924) ALT (SGPT) 9 [iU]/L (Normal) Range: 0-32 [...] Glucose, Serum 150 mg/dL (Abnormal) Range: 65-99 60-Evh-61139:09 CBC WITH MANUAL DIFF Comments: PATIENT WAS FASTINGPERFORMED BY: LabCoThe [facility] Hospital of T[facility] FallsAbaqhh8593 [facility] [id number] Information: [id number] (12563) Immature Grans (Abs) 0.0 {x10E3/uL} (Normal) Range: [...] {x10E3/uL} (Normal) Range: 3.4-10.8 :09 LIPID PANEL (68238) Comments: PATIENT WAS FASTINGPERFORMED BY: LabCoThe [facility] Hospital of T[facility] FallsOimekc9236 [facility] [id number] VLDL Cholesterol Jyoti VLDLCH mg/dL (Normal) Range: [...] (Normal) Range: 100-199 :23 HgA1C , Office (26484) HgA1C , Office 7.2 % (Abnormal) Range: 4.6 - 7.1 95-Rge-749932:08 FOOT MIN 3 VIEWS Radiology Report See [...] Babcock M.D.November 02, 2012 at 3:41:31 PM [id number] Signed GP/GP If you are the referring physician and would like to consult with theradiologist who provided this interpretation, please contact Imani Hayes at [phone]. If this radiologist is unavailable, youwill be directed to another radiologist to assist. If you are a patient with a question regarding this report, pleasecontactyour referring lisa frygerri directly. Professional Interpretation Provided By: [employer], Phone , These documents contain legally protected [...] return or destructionofthese documents. Dictated on 11/02/12 6199 by Emma Babcock MD on 11/02/121542 by ITS IMPORTSign by John Babcock MD on 11/02/12 1544 Sign by: John Babcock MD 91-Xnu-445481:33 MICROALBUMIN: CREATININE RATIO Comments: PATIENT WAS FASTINGPERFORMED BY: M-Changa Slovan5385 [facility] [id number] (57123) AND (42325) Microalb/Creat Ratio 31.2 {mg/g_creat} (Abnormal) Range: 0.0-30.0 Microalbumin, Urine 44.7 ug/mL (Abnormal) Range: 0.0-17.0 Creatinine, Urine 143.3 mg/dL (Normal) Range: 15.0-278.0 47-Bca-446302:33 CBC WITH MANUAL DIFF Comments: PATIENT WAS FASTINGPERFORMED BY: [employer] Skuhhl5123 [facility] [id number] Information: [id number] (44052) Immature Grans (Abs) 0.0 {x10E3/uL} (Normal) Range: [...] 3.77-5.28 WBC 6.9 {x10E3/uL} (Normal) Range: 3.4-10.8 28-Grc-841602:33 METABOLIC PANEL, COMPREHENSIVE Comments: PATIENT WAS FASTINGPERFORMED BY: LabCoThe [facility] Hospital of T[facility] FallsMuyili8565 [facility] [id number] (77082) ALT (SGPT) 10 [iU]/L (Normal) Range: 0-32 [...] Glucose, Serum 158 mg/dL (Abnormal) Range: 65-99 83-Owm-722632:33 VITAMIN B-12 (CYANOCOBALAMIN) Comments: PATIENT WAS FASTINGPERFORMED BY: GENWICoThe Rehabilitation Hospital of Tinton FallsHrofax9061 [facility] [id number] (54417) Vitamin B12 >1999 pg/mL (Abnormal) Range: 211-946 77-Lfp-818728:33 IRON BINDING CAPACITY (TIBC) Comments: PATIENT WAS FASTINGPERFORMED BY: LabAver InformaticsThe Rehabilitation Hospital of Tinton FallsCmnvln6159 [facility] [id number] (55569) Iron Saturation 16 % (Normal) Range: 15-55 Iron, Serum 59 ug/dL (Normal) Range: 35-155 UIBC 315 ug/dL (Normal) Range: 150-375 Iron Bind.Cap.(TIBC) 374 ug/dL (Normal) Range: 250-450 79-Uxr-136475:33 FERRITIN (35728) Comments: PATIENT WAS FASTINGPERFORMED BY: LabCoThe [facility] Hospital of T[facility] FallsEdzhqx3102 [facility] [id number] Ferritin, Serum 29 ng/mL (Normal) Range: 15-150 51-Uhp-349499:33 HEPATIC FUNCTION PANEL Comments: PATIENT WAS FASTINGPERFORMED BY: M-ChangaThe Rehabilitation Hospital of Tinton FallsRmgabz3441 [facility] [id number] (25165) Bilirubin, Direct 0.12 mg/dL (Normal) Range: 0.00-0.40 38-Nnm-176564:33 LIPID PANEL (91783) Comments: PATIENT WAS FASTINGPERFORMED BY: LabCo Sdwjjn5759 [facility] [id number] VLDL Cholesterol Jyoti VLDLCH mg/dL (Normal) Range: [...] Cholesterol, Total 174 mg/dL (Normal) Range: 100-199 92-Own-014607:33 Vitamin D Hydroxy (46630) Comments: PATIENT WAS FASTINGPERFORMED BY: LabCoThe [facility] Hospital of T[facility] FallsSdtyia2367 [place] [id number] Vitamin D, 25-Hydroxy 21.3 ng/mL (Abnormal) Range: 30.0-100.0 Comments: Vitamin D deficiency has been defined by the [place] of[place]icine and an Endocrine Society practice guideline as alevel of serum 25-OH vitamin D less than 20 ng/mL (1,2).The Endocrine Society went on to further define vitamin Dinsufficiency as a level between 21 and 29 ng/mL (2).1. IOM ([place]). 2010. Dietary reference intakes for calcium and D. [place]: The National AcademnCrypted Cloud Press.2. Bobo MF, Estrellita STOCKTON, Maddi CALIX, et al. Evaluation, treatment, and prevention of vitamin D deficiency: an Endocrine Society clinical practice guideline. JCEM. 2010; 96(7):1911-30. 39-Dim-801017:22 HgA1C , Office (14404) HgA1C , Office 6.8 % (Normal) Range: [...] Babcock M.D.August 18, 2012 at 3:19:26 PM [id number] Signed GP/GP If you are the referring physician and would like to consult with theradiologist who provided this interpretation, please contact Imani Hayes at [phone]. If this radiologist is unavailable, youwill be directed to another radiologist to assist. If you are a patient with a question regarding this report, pleasecontactyour referring physician directly. Professional Interpretation Provided By: [employer], Phone , These documents contain legally protected [...] 08/18/12 1522 Sign by: John Babcock MD 6-Sat-082260:40 BILAT SCRN DIGITAL & CAD Radiology Report [...] Signed:John Babcock M.D.August 18 at 1:37:33 PM [id number] Signed GP/GP If you are the referring physician and would like to consult with theradiologist who provided this interpretation, please contact Sunil louis M.D. at [phone]. If this radiologist is unavailable, youwill be directed to another radiologist to assist. If you are a patient with a question regarding this report, pleasecontactyour referr ing physician directly. Professional Interpretation Provided By: [employer], Phone , These documents contain legally protected [...] 08/18/12 1400 Sign by: John Babcock MD 0-Wit-821976:36 VERT FX ASSESS/LAT BONE DEN(H) Radiology Report [...] Babcock M.D.August 20, 2012 at 2:14:56 PM [id number] Signed GP/GP If you are the referring physician and would like to consult with theradiolo [facility] who provided this interpretation, please contact Imani Hayes at [phone]. If this radiologist is unavailable, youwill be directed to another radiologist to assist. If you are a clarice ent with a question regarding this report, pleasecontactyour referring physician directly. Professional Interpretation Provided By: [employer], Phone , These documents con tain legally [...] on 08/20/121416 Sign by: John Babcock MD 70-Njq-79957:10 LIPID PANEL (78724) Comments: PATIENT WAS FASTINGPERFORMED BY: [facility] [id number] VLDL Cholesterol Jyoti VLDLCH mg/dL (Normal) Range: [...] Cholesterol, Total 183 mg/dL (Normal) Range: 100-199 20-Bcb-00593:10 METABOLIC PANEL, COMPREHENSIVE Comments: PATIENT WAS FASTINGPERFORMED BY: [employer]6370 [facility] [id number] (07301) ALT (SGPT) 5 [iU]/L (Normal) Range: 0-32 [...] CAPACITY (TIBC) Comments: PATIENT WAS FASTINGPERFORMED BY: [employer]6370 [facility] [id number] (81167) Iron Saturation 15 % (Normal) Range: 15-55 Iron, Serum 53 ug/dL (Normal) Range: 35-155 UIBC 308 ug/dL (Normal) Range: 150-375 Iron Bind.Cap.(TIBC) 361 ug/dL (Normal) Range: 250-450 :10 FERRITIN (07591) Comments: PATIENT WAS FASTINGPERFORMED BY: [facility] [id number] Ferritin, Serum 25 ng/mL (Normal) Range: 15-150 67-Oxj-97702:10 VITAMIN B-12 (CYANOCOBALAMIN) Comments: PATIENT WAS FASTINGPERFORMED BY: BELKYS LabCoThe Rehabilitation Hospital of Tinton FallsTneobr5427 [facility] [id number] (44885) Vitamin B12 258 pg/mL (Normal) Range: 211-946 67-Yog-83201:10 CBC WITH MANUAL DIFF Comments: PATIENT WAS FASTINGPERFORMED BY: BELKYS [facility] Ctbikn1223 [facility] [id number] Information: ADD [id number] AND DRAW FEE 99 9427 (95954) Immature Grans (Abs) 0.0 {x10E3/uL} (Normal) Range: [...] (Normal) Range: 4.0-10.5 :10 Vitamin D Hydroxy (52340) Comments: PATIENT WAS FASTINGPERFORMED BY: M-Changa Iajxcn9639 [facility]in [place] [id number] Vitamin D, 25-Hydroxy 20.4 ng/mL (Abnormal) Range: 30.0-100.0 Comments: Vitamin D deficiency has been defined by the [place] of[place]icine and an Endocrine Society practice guideline as alevel of serum 25-OH vitamin D less than 20 ng/mL (1,2).The Endocrine Society went on to further define vitamin Dinsufficiency as a level between 21 and 29 ng/mL (2).1. IOM ([place] of [place]). 2010. Dietary reference intakes for calcium and D. [place]: The National Academies Press.2. Bobo MF, Estrellita STOCKTON, Maddi CALIX, et al. Evaluation, treatment, and prevention of vitamin D deficiency: an Endocrine Society clinical practice guideline. JCEM. 2010; 96(7):1911-30. 1-Vcu-219566:08 IRON (92853) Comments: PATIENT WAS FASTINGPERFORMED BY: M-Changa Jkmqsh4705 [facility] [id number] Iron, Serum 58 ug/dL (Normal) Range: 35-155 8-Rtp-018642:08 FERRITIN (40279) Comments: PATIENT WAS FASTINGPERFORMED BY: M-Changa Lbrwcp9507 [facility] [place] [id number] Ferritin, Serum 25 ng/mL (Normal) Range: 13-150 7-Bdf-524914:08 VITAMIN B-12 (CYANOCOBALAMIN) Comments: PATIENT WAS FASTINGPERFORMED BY: M-Changa Wwbpdu6669 [facility] [place] [id number] (11477) Vitamin B12 390 pg/mL (Normal) Range: 211-946 0-Slo-498859:08 Vitamin D Hydroxy (53440) Comments: PATIENT WAS FASTINGPERFORMED BY: LabFormerly [facility]6370 [facility] [id number] Vitamin D, 25-Hydroxy 25.3 ng/mL (Abnormal) Range: 30.0-100.0 Comments: Vitamin D deficiency has been defined by the [place] of[place]icine and an Endocrine Society practice guideline as alevel of serum 25-OH vitamin D less than 20 ng/mL (1,2).The Endocrine Society went on to further define vitamin Dinsufficiency as a level between 21 and 29 ng/mL (2).1. IOM ([place]). 2010. Dietary reference intakes for calcium and D. [place]: The National Academies Press.2. Bobo MF, Estrellita STOCKTON, Maddi CALIX, et al. Evaluation, treatment, and prevention of vitamin D deficiency: an Endocrine Society clinical practice guideline. JCEM. 2010; 96(7):1911-30. 6-Meq-941661:08 METABOLIC PANEL, COMPREHENSIVE Comments: PATIENT WAS FASTINGPERFORMED BY: BELKYS LabCoThe [facility] Hospital [facility] T[facility] FallsTaggjb0707 [facility] [id number] (15428) ALT (SGPT) 6 [iU]/L (Normal) Range: 0-32 [...] Glucose, Serum 124 mg/dL (Abnormal) Range: 65-99 3-Qde-585227:08 CBC WITH MANUAL DIFF Comments: PATIENT WAS FASTINGPERFORMED BY: [facility]6370 [facility] [id number] Information: [id number] (78963) Immature Grans (Abs) 0.0 {x10E3/uL} (Normal) Range: [...] 3.77-5.28 WBC 8.2 {x10E3/uL} (Normal) Range: 4.0-10.5 4-Qsw-018739:08 LIPID PANEL (27760) Comments: PATIENT WAS FASTINGPERFORMED BY: [facility] Wbabvz0460 [facility] [id number] VLDL Cholesterol Jyoti VLDLCH mg/dL (Normal) Range: [...] (Normal) Range: 100-199 :56 HgA1C , Office (11407) HgA1C , Office 7.4 % (Abnormal) Range: 4.6 - 7.1 :56 Blood Glucose , Office (54479) Blood Glucose , Office 142 (Normal) 97-Lcj-948496:40 CBCMD RBCM NORM C+C {NORMAL} (Normal) EOS [...] 4.2-5.4 WBC 11.2 K/mm3 (Abnormal) Range: 4.4-11.0 94-Drp-669540:40 CMP GAP 7 (Normal) Range: 5-15 CL [...] mg/dL suggests DIABETES MELLITUS per A.D.A. criteria. 47-Etr-01792:04 CHEST WITH CONTRAST Radiology Report See Note [...] coronal and sagittal images were reformatted. [facility] dated [...] Babcock M.D.November 07, 2011 at 1:33:21 PM [id number] Signed GP/GP If you ar e the referring physician and would like to consult with theradiologist who provided this interpretation, please contact Imani Hayes at [phone]. If this radiologist is unavailable, youw ill [...] 11/07/11 1340 Sign by: John Babcock MD 76-Cod-142930:41 Pathology Report Comments: PERFORMED BY: [facility] Vulj69968 Psychiatric [id number] BY: LX [facility] Segngch88174 [facility] [id number] Information: [id number] See MATER Comments: Material submitted: .SHAVE BIOPSY LEFT UPPER THIGH NEAR GROINClinical history: .POLYPOID LESION Note (Normal) Diagnosis:SHAVE BIOPSY LEFT UPPER THIGH NEAR GROIN:DERMATOLIPOMA OF THE SKIN..GXA/11/03/2011 Electronically signed: .bUaldo Duran MD, PathologistGross description: .RECEIVED IS A CONTAINER LABELE D FRITZ,COMFORT AND DESIGNATEDLEFT UPPER THIGH NEAR GROIN. IN FORMALIN IS AN OVOID, YELLOW/PAYTON TISSUEMEASURING 1.8 X 1.3 X 0.9 CM. THE 0.4 CM RESECTION MARGIN IS INKEDGREEN. THE SPECIMEN IS BISECTED AND BOTH HALVES ARE SUBMITTEDIN TWO CASSETTES, A1 AND A2.COR/[facility] CENTERCPT .[id number] 58-Fmg-457662:06 CBC WITH MANUAL DIFF Comments: PATIENT NOT FASTINGPERFORMED BY: BELKYS [facility] Dszqnp1487 [facility] [id number] Information: [id number] (83782) Immature Grans (Abs) 0.0 {x10E3/uL} (Normal) Range: [...] 3.77-5.28 WBC 7.9 {x10E3/uL} (Normal) Range: 4.0-10.5 30-Zik-417859:06 LDH (LD) (LACTATE DEHYDROGENASE) Comments: PATIENT NOT FASTINGPERFORMED BY: [facility] CanadaAlbuquerque Indian Dental ClinicKnnwla7283 [facility] [id number] (85508) LDH 198 [iU]/L (Normal) Range: 0-214 30-Leg-018855:06 IRON BINDING CAPACITY (TIBC) Comments: PATIENT NOT FASTINGPERFORMED BY: [employer] Fantoo [facility] [id number] (90692) Iron Saturation 11 % (Abnormal) Range: 15-55 Iron, Serum 46 ug/dL (Normal) Range: 35-155 UIBC 389 ug/dL (Abnormal) Range: 150-375 Iron Bind.Cap.(TIBC) 435 ug/dL (Normal) Range: 250-450 61-Pzv-801258:06 FERRITIN (52066) Comments: PATIENT NOT FASTINGPERFORMED BY: [facility]6370 [facility] [id number] Ferritin, Serum 12 ng/mL (Abnormal) Range: 13-150 8-Wor-286748:03 HgA1C , Office (02927) HgA1C , Office 7.1 % (Normal) Range: 4.6 - 7.1 :34 CBC WITH MANUAL DIFF (81717) Comments: PATIENT WAS FASTINGPERFORMED BY: [facility]6370 [facility] [id number] Immature Grans (Abs) 0.0 {x10E3/uL} (Normal) Range: [...] 3.77-5.28 WBC 8.3 {x10E3/uL} (Normal) Range: 3.4-10.8 3-Bco-562570:11 FECAL OCCULT- Tubes sent home (72246) FECAL OCCULT HGB ASSAY, QUAL, 1-3 SIMULTANEOU positive (Normal) :30 HgA1C , Office (96915) HgA1C , Office 7.3 % (Abnormal) Range: [...] mg/dL suggests DIABETES MELLITUS per A.D.A. criteria. 09-Bmw-858997:09 MIACRE tMICROCREAT 70.2 {mg/g_CRE} (Abnormal) MIALB 76.8 mg/L (Normal) CREU 109.3 mg/dL (Normal) 25-Vpc-968820:09 VITD 23.9 ng/mL (Abnormal) Comments: appt 05-14-11 Range: 30.0-100.0 Comments: Vitamin D deficiency has been defined by the [place] of[place]icine and an Endocrine Society practice guideline as alevel of serum 25-OH vitamin D less than 20 ng/mL (1,2).The Endocrine Society went on to further define vitamin Dinsufficiency as a level between 21 and 29 ng/mL (2).1. IOM ([place] of Medicine). 2010. Dietary reference intakes for calcium and D. [place]: The National Academies Press.2. Bobo MF, Estrellita [place], Maddi CALIX, et al. Evaluation, treatment, and prevention of vitamin D deficiency: an Endocrine Society clinical practice guideline. JCEM. 2010; 96(7): 1911-30.Performed at: [facility]Co[address] [id number] Director: Charisma Hamilton MD, Phone: [phone] 6-Yoj-392912:21 CHEST WITHOUT CONTRAST Radiology Report See Note [...] regarding this report, please jyoti edison felipe 71Q4zklspps line @ Dictated on 02/15/111125 by Boone Alarcon DOribed on 02/15/111732 by ITS IMPORTSign by Emery Alarcon DO on 02/15/111733 Sign by: Emery Alarcon DO 8-Tgc-206105:30 HgA1C , Office (08704) HgA1C , Office 7.4 % (Abnormal) Range: 4.6 - 7.1 :30 Blood Glucose , Office (21984) Blood Glucose , Office 153 (Normal) :07 [...] ANNAMARIE WOODWARD MD :01 HgA1C , Office (91511) HgA1C , Office 7.9 % (Abnormal) Range: 4.6 - 7.1 81-Ylx-892336:01 Blood Glucose , Office (65750) Blood Glucose , Office 133 (Normal) :52 [...] CREAT 107.1 mg/dL (Normal) :52 VIT D,25 80870 19.0 ng/mL (Abnormal) Range: 32.0-100.0 Comments: Recent studies consider the lower limit of 32.0 ng/mL to helena threshold for optimal health.Sunday BETTENCOURT. J Nutr. 2004;135(2):317-22.Performed at: [facility] LabJeremy Ville [address]Lab Director: Charisma Hamilton MD, Phone: [phone] :[phone] VITAMIN B12 447 pg/mL (Normal) Range: 254-1320 Comments: There is a low frequency possibility that high titers ofintrinsic blocking antibodies may not be completely inactivated during the reaction pretreatment stepof this testing method. If test results are i n conflictwith the clinical diagnosis, patient should be testedfor the presence of intrinsic factor blocking antibodies. 11-Gfy-264558:02 BILAT SCRN DIGITAL & CAD Radiology Report [...] KEYA TREJO on 04/05/10 0305 Sign by: KEAY TREJO 65-Afc-946969:02 DEXA BONE DENSITY STUDY (HP) Radiology Report See Note (Normal) Comments: CLINICAL:Female, 69 years old. The patient is postmenopausal. EXAMINATION:DUAL ENERGY X-RAY ABSORPTIOMETRY / DEXA. TECHNIQUE:Bone Mineral Density (BMD) measurements of lumbar spine and bila teralhipswer e obtained using a [employer] scanner.. COMPARISON:Comparison is made with prior examination [...] by: John Babcock :28 HgA1C , Office (65159) HgA1C , Office 8.2 % (Abnormal) Range: 4.6 - 7.1 :28 Blood Glucose , Office (79944) Blood Glucose , Office 205 (Normal) :27 [...] CHOL 169 mg/dL (Normal) Comments: <200 mg/dL Ywjiunlcs682-680 mg/dL Borderline>240 mg/dL High Risk HDL 24 [...] the presence of intrinsic factor blocking antibodies. 9-Njr-638890:47 CHEST WITHOUT CONTRAST Radiology Report See Note (Normal) Comments: Exam Number: [id number] CT SCAN OF THE THORAX Multiple axial [...] unchanged as well. Reported By: JOHN BABCOCK 02-Udb-558248:27 VITAMIN B-12 (CYANOCOBALAMIN) Comments: PATIENT NOT FASTINGPERFORMED BY: [facility]6370 [facility] [id number] (58526) Vitamin B12 338 pg/mL (Normal) Range: 211-946 Comments: Please note reference interval change 47-Sik-946953:27 Vitamin D Hydroxy (57264) Comments: PATIENT NOT FASTINGPERFORMED BY: [facility]6370 [facility] [id number] Vitamin D, 25-Hydroxy 17.2 ng/mL (Abnormal) Range: 32.0-100.0 Comments: Recent studies consider the lower limit of 32.0 ng/mL to be athreshold for optimal health.Sunday BETT[place]OURT. J Nutr. 2004;135(2):317-22. :27 CBC WITH MANUAL DIFF Comments: PATIENT NOT FASTINGPERFORMED BY: [facility]CoThe [facility] Tinton FallsJhhzop6024 [facility] [id number] Information: [id number] (05788) Baso (Absolute) 0.0 {x10E3/uL} (Normal) Range: 0.0-0.2 [...] 3.80-5.10 WBC 7.3 {x10E3/uL} (Normal) Range: 4.0-10.5 42-Qfr-320795:27 METABOLIC PANEL, COMPREHENSIVE Comments: PATIENT NOT FASTINGPERFORMED BY: [facility]CoThe [facility] T[facility] FallsQqgbtn3940 [facility] [id number] (54818) ALT (SGPT) 7 [iU]/L (Normal) Range: 0-40 [...] Range: 65-99 :38 Blood Glucose , Office (43875) Blood Glucose , Office 133 (Normal) :57 [...] CHOL 186 mg/dL (Normal) Comments: <200 mg/dL Xcsujxfgo527-789 mg/dL Borderline>240 mg/dL High Risk 07-Vtj-45908:57 LIVER ALT 9 U/L (Abnormal) Range: 12-78 D BILI 0.10 mg/dL (Normal) Range: 0.00-0.30 T BILI 0.20 mg/dL (Normal) Range: 0.00-1.00 ALB 3.7 g/dL (Normal) Range: 3.4-5.0 ALK P 51 U/L (Normal) Range: 50-136 AST 6 U/L (Abnormal) Range: 15-37 T PROT 7.3 g/dL (Normal) Range: 6.4-8.2 18-Mnp-032765:17 KNEE,4 OR MORE VIEWS (MT) Radiology Report See Note (Normal) Comments: Exam Number: [id number] CLINICAL:Medial pain X-RAY EXAMINATION RIGHT KNEE TECHNIQUE: [...] Report See Note (Normal) Comments: Exam Number: [id number] NONCONTRAST CHEST CT Comparison is made with [...] difficile Toxins Negative (Normal) Comments: PERFORMED BY: M-Changa Fant[facility] [id number] :51 A+B, EIA :51 Ova + Parasite Exam Comments: PERFORMED BY: [facility] Fantoo [facility] [id number] Ova + Parasite Exam Final report (Normal) Comments: These results were obtained using wet preparation(s) and trichromestained smear. This test does not include testing for Cryptosporidiumparvum, Cyclospora, or Microsporidia. Result 1 NOCP (Normal) Comments: No ova, cysts, or parasites seen. :51 Stool Culture Comments: Clinical Information: SRC:ST PERFORMED BY: M-Changa Tqplpm7805 [facility] [id number] Campylobacter Culture Final report (Normal) E coli Shiga Toxin EIA Negative (Normal) Result 1 NCI (Normal) Comments: No Campylobacter species isolated. Result 1 NSS (Normal) Comments: No Salmonella or Shigella recovered. Salmonella/Shigella Screen Final report (Normal) :51 White Blood Cells (WBC), Comments: PERFORMED BY: [facility] [id number] Stool Result 1 NWBC (Normal) Comments: No white blood cells seen. White Blood Cells (WBC), Final report (Normal) Comments: Reference Range: None Seen Stool :52 CBC With Differential/Platelet Comments: PATIENT WAS FASTINGPERFORMED BY: [facility] Qyapnk0296 [facility] [id number] Baso (Absolute) 0.0 {x10E3/uL} (Normal) Range: 0.0-0.2 [...] 11.7-15.0 WBC 5.2 {x10E3/uL} (Normal) Range: 4.0-10.5 58-Ryt-494389:52 Comp. Metabolic Panel (14) Comments: PATIENT WAS FASTINGPERFORMED BY: [facility]6370 [facility] [id number] A/G Ratio 1.6 (Normal) Range: 1.1-2.5 Albumin, [...] Glucose, Serum 145 mg/dL (Abnormal) Range: 65-99 61-Yen-714373:52 Lipid Panel With LDL/HDL Comments: PATIENT WAS FASTINGPERFORMED BY: [facility] [id number] Ratio Cholesterol, Total 135 mg/dL (Normal) Range: [...] pg/mL (Normal) Comments: PATIENT WAS FASTINGPERFORMED BY: [facility]6370 [facility] [id number] 0:52 Range: 211-911 40-Xon-53969 Vitamin D, 25-Hydroxy 13.6 ng/mL Comments: PATIENT WAS FASTINGPERFORMED BY: [facility]6370 [facility] [id number] 0:52 (Abnormal) Range: 32.0-100.0 Comments: Recent studies consider the lower limit of 32.0 ng/mL to be athreshold for optimal health.Sunday BETTENCOURT. J Nutr. 2004;135(2):317-22. :32 HgA1C , Office (47847) HgA1C , Office 6.9 % (Normal) Range: 4.6 - 7.1 :32 Blood Glucose , Office (27226) Blood Glucose , Office 179 (Normal) 68-Ezp-706971:25 ABDOMEN LIMITED US () Radiology Report See Note (Normal) Comments: Exam Number: [id number] CLINICAL:Abdominal pain. LIMITED ABDOMINAL ULTRASOUND COMPARISON:None. FINDINGS: [...] of cholecystitis. Reported By: HALIMA TURNER M.D. 1-Qcl-453942:35 Urinalysis, Office (87421) UA - BILIRUBIN Moderate (Normal) UA - [...] (14) Comments: PATIENT NOT FASTINGPERFORMED BY: BELKYS [employer]6370 [facility] [id number] A/G Ratio 1.3 (Normal) Range: 1.1-2.5 Albumin, [...] (7) Comments: PATIENT NOT FASTINGPERFORMED BY: BELKYS [facility]CoThe [facility] T[facility] FallsWsaafx3215 [facility] [id number] Bilirubin, Direct 0.17 mg/dL (Normal) Range: 0.00-0.40 [...] g/dL (Normal) Range: 6.4-8.2 :27 VIT D,25 40856 16.4 ng/mL (Abnormal) Comments: ORDERED LIPID,LIVER ALSO Range: 32.0-100.0 Comments: Recent studies consider the lower limit of 32.0 ng/mL to helena threshold for optimal health.Sunday BETTENCOURT. J Nutr. 2004;135(2):317-22.Performed At: [facility] [place] [address] [id number] :27 VITAMIN B12 430 pg/mL (Normal) Comments: ORDERED LIPID,LIVER ALSO Range: 254-1320 06-Czf-190268:01 BRAIN/HEAD W/WO CONTRAST Radiology Report See Note (Normal) Comments: Exam Number: [id number] CT OF THE HEAD WITH AND WITHOUT CONTRAST ESYVDFB42-kcix-qhl woman who has had vague symptoms of [...] 02, 2008. Reported By: THANH ANNE M.D. 86-Gzo-19304:51 CBCD,SMEAR DIFF CELLS COUNTED 100 (Normal) EOS [...] mg/dL (Normal) Range: 0.00-0.30 :51 VIT D,25 75340 6.3 ng/mL (Abnormal) Range: 32.0-100.0 Comments: Recent studies consider the lower limit of 32.0 ng/mL to helena threshold for optimal health.Sunday BETTENCOURT. J Nutr. 2004;135(2):317-22.Performed At: [facility]6370 [place], [place] [id number] :51 VITAMIN B12 301 pg/mL (Normal) Range: 211-911 :43 CHEST WITHOUT CONTRAST Radiology Report See Note (Normal) Comments: Exam Number: [id number] CLINICAL: Nodules CT CHEST WITHOUT CONTRAST COMPARISON:April [...] cardiopulmonary disease Reported By: RIO KAY M.D. 34-Keg-597323:13 HgA1C , Office (14811) HgA1C , Office 7.5 % (Abnormal) Range: 4.6 - 7.1 72-Rxt-338889:13 Blood Glucose , Office (14049) Blood Glucose , Office 203 (Normal) Antiparietal Cell 2.2 {Units} Comments: PERFORMED BY: GENEVIEVE [facility]Barn[facility] [facility] [id number] 0:04 Antibody (Normal) Range: 0.0-20.0 Comments: Negative 0.0 - 20.0 Equivocal 20.1 - 24.9 Positive >24.9 . Parietal Cell Antibodies are found in 90% of patients with pernicious anemia and 30% of first degree relatives with pernicious anemia. 99-Jbo-808356:04 CBC With Differential/Platelet Comments: PERFORMED BY: [facility]Co[address] [id number] Baso (Absolute) 0.0 {x10E3/uL} Range: 0.0-0.2 (Normal) [...] Factor Abs, Negative (Normal) Comments: PERFORMED BY: [facility]CoChrist HospitalKtjsfwleqz2342 [facility] [id number] 0:04 Serum Vitamin B12 472 pg/mL (Normal) Comments: PERFORMED BY: [facility]CoChrist HospitalWzyriyqpmq7[address] [facility] [id number] 0:04 Range: 211-911 :32 Fecal Occult Blood , Office (25686) Fecal Occult Blood Negative (Normal) , Office Ferritin, Serum 21 ng/mL (Normal) Comments: PATIENT NOT FASTINGPERFORMED BY: M-Changa Exwfjj4097 Ryan RoadDublin [place] [id number] :21 Range: 10-291 Folate (Folic >24.0 ng/mL (Normal) Comments: PATIENT NOT FASTINGPERFORMED BY: M-Changa Adhxch6947 [address] CohesionDublin [place] [id number] :21 Acid), Serum Comments: Indeterminate: 3.4 - 5.4 Deficient: <3.4 :21 Iron and TIBC Comments: PATIENT NOT FASTINGPERFORMED BY: M-Changa Qftjtb6981 [address] CohesionDublin [place] [id number] Iron Bind.Cap.(TIBC) 377 ug/dL (Normal) Range: 250-450 Iron Saturation 13 % (Abnormal) Range: 15-55 Iron, Serum 49 ug/dL (Normal) Range: 35-155 UIBC 328 ug/dL (Normal) Range: 150-375 LDH 145 [iU]/L (Normal) Comments: PATIENT NOT FASTINGPERFORMED BY: M-Changa Mifkzv7033 Ryan RoadDublin [place] [id number] :21 Range: 100-250 Reticulocyte Count 2.1 % (Normal) Comments: PATIENT NOT FASTINGPERFORMED BY: [facility] Vgoqsv8989 Ryan RoadDublin [place] [id number] :21 Range: 0.5-3.0 Vitamin B12 182 pg/mL Comments: PATIENT NOT FASTINGPERFORMED BY: Lab[facility] Szuxjc9724 [address] CohesionDublin [place] [id number] :21 (Abnormal) Range: 211-911 :33 HgA1C , Office (80913) Comments: done>Wf. HgA1C , Office 6.8 % (Normal) Range: 4.6 - 7.1 :33 Blood Glucose , Office (93635) Comments: done>Wf. Blood Glucose , Office 150 [...] mg/dL VLDL 54 mg/dL (Abnormal) Range: 5-40 99-Qnd-843787:06 LIVER Comments: SEND A COPY OF THE LIPID AND LIVER RESULTSONLY. JLG ALB 3.6 g/dL (Normal) Range: 3.4-5.0 ALK P 47 U/L (Abnormal) Range: 50-136 ALT 25 U/L (Abnormal) Range: 30-65 AST 14 U/L (Abnormal) Range: 15-37 D BILI 0.06 mg/dL (Normal) Range: 0.00-0.30 T BILI 0.31 mg/dL (Normal) Range: 0.00-1.00 T PROT 6.7 g/dL (Normal) Range: 6.4-8.2 41-Ehp-310263:27 BILAT SCRN DIGITAL & CAD Radiology Report See Note (Normal) Comments: Exam Number: [id number] MAMMOGRAM, BILATERAL SCREENING DIGITAL AND CAD HISTORYRoutine [...] kailash werealso examined with computer-aided detection software ([employer], [employer] Reported By: KEYA TREJO M.D. 27-Fwi-205932:27 DEXA BONE DENSITY STUDY (HP) Radiology Report See Note (Normal) Comments: Exam Number: [id number] BONE DENSITOMETRY HISTORYPostmenopausal. TECHNIQUE Bone densitometry of the lumbar spine and left hip was performed. Thebest criteria for evaluation of osteoporosis is the T- value, whichrepresents the comparison of the patient's bone mass to an expectedpeak bone mass. For most patients, the mean T-value of L1 through L4is used to evaluate the lumbar spine. Based on the [facility] WorldHealth Organization classifications, the hip is [...] left hip. Reported By: KEYA TREJO M.D. 78-Lfl-487071:46 HgA1C , Office (02250) HgA1C , Office 6.7 % (Normal) Range: 4.6 - 7.1 88-Kxd-155689:46 Blood Glucose , Office (90679) Blood Glucose , Office 170 (Normal) :46 [...] Report See Note (Normal) Comments: Exam Number: [id number] RIGHT KNEE CLINICAL INFORMATIONKnee pain. Standing AP [...] Report See Note (Normal) Comments: Exam Number: [id number] CT CHEST NONCONTRAST CLINICAL STATEMENTFollow of lung [...] RICHARD CANADA M.D. :33 HgA1C , Office (71723) HgA1C , Office 6.5 % (Normal) Range: 4.6 - 7.1 :33 Blood Glucose , Office (55990) Blood Glucose , Office 89 (Normal) :34 [...] Range: 6.4-8.2 :17 Blood Glucose , Office (94442) Blood Glucose , Office 175 (Normal) :41 [...] Report See Note (Normal) Comments: Exam Number: [id number] CT SCAN OF CHEST HISTORYCough. Consecutive axial [...] is suggested. Reported By: KEYA TREJO M.D. 0-Ses-606154:45 HgA1C , Office (24314) Comments: [facility] HgA1C , Office 6.6 % (Normal) Range: 4.6 - 7.1 :45 Blood Glucose , Office (89978) Comments: [facility] Blood Glucose , Office 105 (Normal) [...] Report See Note (Normal) Comments: Exam Number: [id number] CHEST PA AND LATERAL STATEMENTCough and pneumonia. [...] CHIVO MONIQUE M.D. :41 HgA1C , Office (73078) HgA1C , Office 6.8 % (Normal) Range: 4.6 - 7.1 :41 Blood Glucose , Office (57822) Blood Glucose , Office 126 (Normal) 58-Sgv-687086:11 CBCD,SMEAR DIFF CELLS COUNTED 100 (Normal) EOS [...] 47-70 WBC 7.4 K/mm3 (Normal) Range: 4.4-11.0 42-Tko-275473:11 COMP METABOLIC A/G 1.1 {RATIO} (Normal) Range: [...] T PROT 7.1 g/dL (Normal) Range: 6.4-8.2 64-Kms-591933:11 COMPLETE UA BACTERIA 0 SEEN {/hpf} (Normal) [...] (Normal) Range: 0-5 Comments: Result: 0-5 SEEN 22-Wyo-498938:11 MICROALBUMIN,UR 9.1 mg/L (Normal) :11 PFLIP CHOL [...] mg/dL VLDL 58 mg/dL (Abnormal) Range: 5-40 55-Xcw-782039:11 TSH 0.85 {uIU/mL} (Normal) Range: 0.34-4.82 :11 HgA1C , Office (04677) HgA1C , Office 6.7 % (Normal) Range: 4.6 - 7.1 :11 Blood Glucose , Office (27841) Blood Glucose , Office 153 (Normal) Plan of Care Name Dates Details Instructions Type 2 diabetes mellitus, uncontrolled : Follow up in 3 months Indication: Type 2 diabetes mellitus, uncontrolled Coronary artery disease : Reviewed [place] Letter Indication: Coronary artery disease Hypertensive heart [...] heart failure Coronary artery disease : Reviewed [place] Letter Indication: Coronary artery disease Diabetes mellitus [...] ATRIAL FIBRILLATION (Renamed from A-fib) : Reviewed [place] Letter Indication: ATRIAL FIBRILLATION (Renamed from A-fib) [...] ATRIAL FIBRILLATION (Renamed from A-fib) : Reviewed [place] Letter Indication: ATRIAL FIBRILLATION (Renamed from A-fib) Type 2 diabetes mellitus, uncontrolled : Follow up in 3 months Indication: Type 2 diabetes mellitus, uncontrolled Gout, arthritis : Reviewed Lab Indication: Gout, arthritis Asthma : Reviewed [place] Letter Indication: Asthma Type 2 diabetes mellitus, uncontrolled : *Diabetes Education Indication: Type 2 diabetes mellitus, uncontrolled Coronary artery disease : Reviewed [place] Letter Indication: Coronary artery disease Mixed dyslipidemia [...] Indication: Asthma Coronary artery disease : Reviewed [place] Letter Indication: Coronary artery disease Hypertensive heart [...] meninges : Follow up on Friday with [facility] Indication: Benign neoplasm of cerebral [...] : Follow up in 10 days with [facility] Indication: Cough Laryngitis : Laryngitis [...] pelvic and bimanual performed Planned Observations TSH (30532)Indication: ATRIAL FIBRILLATION (Renamed from A-fib) On: 00-Zby-984373:16 Request URINALYSIS, W/ MICRO (81942)Indication: Diabetes mellitus type II, controlled On: 36-Htx-304880:16 Request MICROALBUMIN: CREATININE RATIO (83861) AND (98780)Indication: Diabetes mellitus type II, controlled On: 93-Sue-130003:16 Request METABOLIC PANEL, COMPREHENSIVE (21521)Indication: Diabetes mellitus type II, controlled On: 04-Qpj-878430:16 Request LIPOPROTEIN, BLD, BY NMR (20552)Indication: Diabetes mellitus type II, controlled On: 74-Bjf-593870:16 Request LIPID PANEL (16946)Indication: Diabetes mellitus type II, controlled On: 25-Jfn-821805:16 Request CBC W/AUTO DIFF WBC (32674)Indication: Diabetes mellitus type II, controlled On: 42-Nla-223214:15 Request VITAMIN B-12 (CYANOCOBALAMIN) (22469)Indication: Other vitamin B12 deficiency anemia On: 8-Jqn-460440:50 Request TSH (32311)Indication: ATRIAL FIBRILLATION (Renamed from A-fib) On: 6-Dpm-206659:50 Request URINALYSIS, W/ MICRO (62477)Indication: Hypertensive heart disease without heart failure On: 4-Lvz-330120:49 Request MICROALBUMIN: CREATININE RATIO (39526) AND (90806)Indication: Hypertensive heart disease without heart failure On: 1-Mdf-741724:49 Request METABOLIC PANEL, COMPREHENSIVE (85845)Indication: Hypertensive heart disease without heart failure On: 7-Rxy-802620:49 Request CBC W/AUTO DIFF WBC (80460)Indication: Hypertensive heart disease without heart failure On: 8-Aoi-143949:49 Request CALCIFEDIOL (26347)Indication: Vitamin D deficiency, unspecified On: 9-Yfj-700613:49 Request LIPID PANEL (20836)Indication: Mixed dyslipidemia On: 8-Bsi-392847:49 Request URINALYSIS, W/ MICRO (49618)Indication: Type 2 diabetes mellitus, uncontrolled On: 88-Bvy-565388:23 Request MICROALBUMIN: CREATININE RATIO (02947) AND (06569)Indication: Type 2 diabetes mellitus, uncontrolled On: 39-Ulh-772281:23 Request HEMOGLOBIN GLYCLATED (HGB A1C) (85262)Indication: Type 2 diabetes mellitus, uncontrolled On: 49-Smg-635304:03 Request HgA1C , Office (02006)Indication: Type 2 diabetes mellitus, uncontrolled On: 24-Xzx-858953:46 Request Vitamin D Hydroxy (93534)Indication: Vitamin D deficiency, unspecified On: 31-Sbu-914118:16 Request VITAMIN B-12 (CYANOCOBALAMIN) (17726)Indication: Other vitamin B12 deficiency anemia On: 27-Shk-157224:16 Request CBC with auto diff (84463)Indication: Iron deficiency anemia, unspecified On: 66-Dgp-681603:15 Request LIPID PANEL (83720)Indication: Mixed dyslipidemia On: 95-Ztb-566567:15 Request METABOLIC PANEL, COMPREHENSIVE (96334)Indication: Type 2 diabetes mellitus, uncontrolled On: 91-Xka-395260:15 Request CBC W/AUTO DIFF WBC ([id number])Indication: Iron deficiency anemia, unspecified On: 86-Jjv-700704:44 Request URINALYSIS, W/ MICRO ([id number])Indication: Heart disease, hypertensive, malignant, without heart failure On: 93-Wcr-271962:44 Request METABOLIC PANEL, COMPREHENSIVE (23502)Indication: Heart disease, hypertensive, malignant, without heart failure On: 17-Lxl-120526:44 Request MICROALBUMIN: CREATININE RATIO ([id number]) AND ([id number])Indication: Heart disease, hypertensive, malignant, without heart failure On: 48-Qlo-107307:44 Request IRON ([id number])Indication: Iron deficiency anemia, unspecified On: 95-Tga-911394:44 Request CBC, Platelets & Auto Diff ([id number])Indication: SOB On: 0-Flt-078004:09 Request Renal function Panel ([id number])Indication: SOB On: 2-Tyv-419650:09 Request Vitamin D Hydroxy (70720)Indication: Vitamin D deficiency, unspecified On: 18-Hls-568269:04 Request VITAMIN B-12 (CYANOCOBALAMIN) (00378)Indication: Other vitamin B12 deficiency anemia On: :04 Request METABOLIC PANEL, COMPREHENSIVE (09539)Indication: Type 2 diabetes mellitus, uncontrolled On: 32-Tad-218920:04 Request IRON ([id number])Indication: Iron deficiency anemia, unspecified On: 60-Iuw-402314:59 Request IRON ([id number])Indication: Iron deficiency anemia, unspecified On: :18 Request CBC WITH MANUAL DIFF ([id number])Indication: Iron deficiency anemia, unspecified On: 15-Ipi-403294:43 Request METABOLIC PANEL, COMPREHENSIVE (76434)Indication: Hypertensive heart disease without heart failure On: 77-Vxj-713524:43 Request CBC with manual diff ([id number])Indication: Anemia On: :53 Request Comments: recheck in 3 months Ferritin (18561)Indication: Anemia On: :53 Request Iron Binding Capacity (TIBC) (88493)Indication: Anemia On: :53 Request Iron (50177)Indication: Anemia On: :53 Request LIPID PANEL (13387)Indication: Mixed dyslipidemia On: 71-Vdo-030853:43 Request IRON ([id number])Indication: Iron deficiency anemia, unspecified On: 07-Sdd-304148:35 Request Vitamin D Hydroxy (63128)Indication: Vitamin D deficiency, unspecified On: 5-Nky-967330:14 Request METABOLIC PANEL, COMPREHENSIVE (52005)Indication: Type 2 diabetes mellitus, uncontrolled On: 8-Vom-791398:13 Request IRON BINDING CAPACITY (TIBC) (98477)Indication: Iron deficiency anemia, unspecified On: 7-Tat-975178:10 Request FERRITIN (52109)Indication: Iron deficiency anemia, unspecified On: 0-Dye-960238:10 Request IRON (75953)Indication: Iron deficiency anemia, unspecified On: 0-Wwf-701616:10 Request MICROALBUMIN: CREATININE RATIO (39267) AND (68400)Indication: Type 2 diabetes mellitus, uncontrolled On: :58 Request METABOLIC PANEL, COMPREHENSIVE (60525)Indication: Type 2 diabetes mellitus, uncontrolled On: : Request CBC WITH MANUAL DIFF ([id number])Indication: Type 2 diabetes mellitus, uncontrolled On: :58 Request Vitamin D Hydroxy (70176)Indication: Vitamin D deficiency, unspecified On: : Request VITAMIN B-12 (CYANOCOBALAMIN) (05788)Indication: Other vitamin B12 deficiency anemia On: : Request LIPID PANEL (60071)Indication: Mixed dyslipidemia On: : Request METABOLIC PANEL, COMPREHENSIVE (60630)Indication: Hypertension On: : Request CBC WITH MANUAL DIFF (41205)Indication: Other vitamin B12 deficiency anemia On: : Request VITAMIN D, 1, 25-DIHYDROXY (06902)Indication: Vitamin D deficiency, unspecified On: : Request Vitamin D Hydroxy (89446)Indication: Vitamin D deficiency, unspecified On: : Request LIPID PANEL (24426)Indication: Mixed dyslipidemia On: : Request METABOLIC PANEL, COMPREHENSIVE (78884)Indication: Diabetes mellitus type II, controlled On: : Request CBC WITH MANUAL DIFF (97328)Indication: Other vitamin B12 deficiency anemia On: :29 Request MICROALBUMIN: CREATININE RATIO (17291) AND (96297)Indication: Diabetes mellitus type II, controlled On: :29 Request VITAMIN B-12 (CYANOCOBALAMIN) (16994)Indication: Other vitamin B12 deficiency anemia On: :29 Request HEMOGLOBIN GLYCLATED (HGB A1C) (36288)Indication: Diabetes mellitus type II, controlled On: :27 Request LIPID PANEL (52637)Indication: Mixed dyslipidemia On: :16 Request METABOLIC PANEL, COMPREHENSIVE (63481)Indication: Type 2 diabetes mellitus, uncontrolled On: :15 Request CBC WITH MANUAL DIFF (06342)Indication: Type 2 diabetes mellitus, uncontrolled On: :15 Request MICROALBUMIN: CREATININE RATIO (81821) AND ([id number])Indication: Type 2 diabetes mellitus, uncontrolled On: :15 Request VITAMIN B-12 (CYANOCOBALAMIN) ([id number])Indication: Other vitamin B12 deficiency anemia On: :15 Request Vitamin D Hydroxy (38909)Indication: Vitamin D deficiency, unspecified On: :15 Request HgA1C , Office (05132)Indication: Type 2 diabetes mellitus, uncontrolled On: 76-Ajf-047449:38 Request VITAMIN B-12 (CYANOCOBALAMIN) (32845)Indication: Other vitamin B12 deficiency anemia On: :55 Request LIPID PANEL (89460)Indication: Mixed dyslipidemia On: :55 Request METABOLIC PANEL, COMPREHENSIVE (79260)Indication: Heart disease, hypertensive, malignant, without heart failure On: :53 Request CBC WITH MANUAL DIFF ([id number])Indication: Diverticulitis On: :53 Request LEUKOCYTE COUNT, FECAL (04235)Indication: Diarrhea On: :47 Request C.Difficile, Stool (94694)Indication: Diarrhea On: :47 Request BRO CULTURE-STOOL (85640)Indication: Diarrhea On: :47 Request Metabolic Panel, Comprehensive (60644)Indication: Abdominal pain, unspecified abdominal location On: :46 Request HEPATIC FUNCTION PANEL (42465)Indication: Abdominal pain, unspecified abdominal location On: :46 Request Bilirubin, Direct (55790)Indication: Abdominal pain, unspecified abdominal location On: :44 Request Bilirubin, total (27405)Indication: Abdominal pain, unspecified abdominal location On: :44 Request CBC WITH MANUAL DIFF (49392)Indication: Other vitamin B12 deficiency anemia On: 48-Mhy-595169:15 Request VITAMIN B-12 (CYANOCOBALAMIN) (22865)Indication: Other vitamin B12 deficiency anemia On: 56-Whd-908005:15 Request LIPID PANEL (51856)Indication: Mixed dyslipidemia On: 34-Ncm-790892:14 Request METABOLIC PANEL, COMPREHENSIVE (16854)Indication: Heart disease, hypertensive, malignant, without heart failure On: 01-Ptd-380174:14 Request Vitamin D Hydroxy (54735)Indication: Vitamin D deficiency, unspecified On: 13-Yzz-643573:06 Request CBC, PLATELETS & AUT DIFF (04387)Indication: Other vitamin B12 deficiency anemia On: :45 Request VITAMIN B-12 (CYANOCOBALAMIN) (43356)Indication: Other vitamin B12 deficiency anemia On: :45 Request HEPATIC FUNCTION PANEL (34627)Indication: Mixed dyslipidemia On: :44 Request LIPID PANEL (26276)Indication: Mixed dyslipidemia On: :44 Request Vitamin D Hydroxy (21943)Indication: vit d deficiency On: :33 Request Vitamin D Hydroxy (55240) On: :04 Request VITAMIN B-12 (CYANOCOBALAMIN) (60247)Indication: Other vitamin B12 deficiency anemia On: 33-Fay-315426:04 Request CBC WITH MANUAL DIFF ([id number])Indication: Heart disease, hypertensive, malignant, without heart failure On: 47-Blb-038745:03 Request METABOLIC PANEL, COMPREHENSIVE (87964)Indication: Heart disease, hypertensive, malignant, without heart failure On: 74-Fjx-734600:03 Request LIPOPROTEIN, BLD, BY NMR ([id number])Indication: Mixed dyslipidemia On: : Request HEPATIC FUNCTION PANEL (62039)Indication: Mixed dyslipidemia On: 20-Uen-588907: Request LIPID PANEL ([id number])Indication: Mixed dyslipidemia On: 17-Ftz-580246:01 Request FOLIC ACID SERUM (01627)Indication: Anemia On: 01-Fhb-848100:06 Request FERRITIN (43268)Indication: Anemia On: : Request IRON ([id number])Indication: Anemia On: 36-Bmo-603213: Request IRON BINDING CAPACITY (TIBC) ([id number])Indication: Anemia On: 13-Hbk-551055:05 Request RETICULOCYTE COUNT MANUL (35741)Indication: Anemia On: 76-Dpb-438885: Request LDH (LD) (LACTATE DEHYDROGENASE) (74288)Indication: Anemia On: :05 Request VITAMIN B-12 (CYANOCOBALAMIN) (35151)Indication: Anemia On: :05 Request CBC WITH MANUAL DIFF ([id number])Indication: Anemia On: :25 Request HEPATIC FUNCTION PANEL (26957)Indication: Mixed dyslipidemia On: : Request LIPID PANEL (63989)Indication: Mixed dyslipidemia On: : Request MICROALBUMIN URINE QUANT (33910)Indication: Hypertension On: :42 Request TSH ([id number])Indication: Hypertension On: :42 Request METABOLIC PANEL, COMPREHENSIVE (31350)Indication: Diabetes mellitus type II, controlled On: :42 Request HEPATIC FUNCTION PANEL (04338)Indication: Mixed dyslipidemia On: :42 Request LIPID PANEL (42561)Indication: Mixed dyslipidemia On: :42 Request CBC WITH MANUAL DIFF (02912)Indication: Anemia On: 37-Cud-47615:36 Request HEPATIC FUNCTION PANEL (19831)Indication: Mixed dyslipidemia On: 98-Cdy-08037:36 Request LIPID PANEL (44727)Indication: Mixed dyslipidemia On: :36 Request HgA1C , Office (87597)Indication: Diabetes mellitus type II, controlled On: :17 Request URINALYSIS W/O MICRO (61098)Indication: Hypertension On: :47 Request TSH (70063)Indication: Hypertension On: 28-Uek-725221:47 Request METABOLIC PANEL, COMPREHENSIVE (40773)Indication: Hypertension On: 31-Prc-291117:47 Request CBC WITH MANUAL DIFF ([id number])Indication: Hypertension On: 55-Dbe-984632:47 Request Thin prep Pap ([id number])Indication: well female - pap pelvic and bimanual performed On: 9-Llf-347554:02 Request Planned Encounters Medical; 3 Month FU - On: 15-Dec-2017 10:30 [facility] Nia Uriostegui DO, DO, Kathleen Planned Procedures ELECTROCARDIOGRAM, COMPLETE (ECG) On: 27-Aug-2017 Intent (74225)By: Nia Uriostegui DO Comments: nsr - ivcd - pvc no acute chg DO, Nia B 12 Injection, 1000 mcg (J3420)By: On: 28-May-2017 Intent Moody DO, Nia Moody DO, Comments: vitamin b12 1000mcg injectionlot: [id number]:11/2018L DELT IMpt tolerated wellAD EDITOR INDEX Nia B 12 Injection, 1000 mcg (J3420)By: On: 12-Feb-2017 Intent Moody DO, Nia Moody DO, Comments: 1 ml given lt arm lot [id number] exp 06/28 Nia B 12 Injection, 1000 mcg (J3420)By: On: 29-Nov-2016 Intent Moody DO, Nia Moody DO, Comments: b12 1000mcglot: [id number]: 03/2018L DELT IMpt tolerated wellAD EDITOR INDEX Nia Flu Vaccine (Quadrivalent) 18091Yq: On: 07-Nov-2016 Intent Moody DO, Nia Moody DO, Comments: Lot:[id number]:07/28/17Amt:0.5mlRoute:IMSite: L DltdGiven By: RAHUL Bar signed Nia B 12 Injection, 1000 mcg (J3420)By: On: 04-Nov-2016 Intent Moody DO, Nia Moody DO, Comments: lot [id number] exp [id number] mcgleft dltdIMas Nia B 12 Injection, 1000 mcg (J3420)By: On: 08-Aug-2016 Intent Moody DO, Nia Moody DO, Comments: Lot:[id number]:07/28Dose:1mlRoute:IMSite:l armGiven By:SASKIA signed Nia B 12 Injection, 1000 mcg (J3420)By: On: 24-Apr-2016 Intent Moody DO, Nia Moody DO, Comments: Lot:[id number]:05/28Dose:1mlRoute:IMSite:Given By:SASKIA signed Nia ELECTROCARDIOGRAM, COMPLETE (ECG) On: 24-Apr-2016 Intent (67088)By: Nia Uriostegui DO Comments: sinus ana no acute chg DO, Nia Aerosol Treatment (32674)By: Bela ROSAS, On: 27-Feb-2016 Intent Balbir Solu- Medrol Injection, 125mg On: 27-Feb-2016 Intent (J2930)By: Balbir Cramer MD Comments: lot [id number] 07/[id number] mgleft gmIMas, EDITOR INDEX Pulse Oximetry (71881)By: Bela ROSAS, On: 16-Jan-2016 Intent Balbir Aerosol Treatment (20092)By: Bela ROSAS, On: 16-Jan-2016 Intent Balbir Solu- Medrol Injection, 125mg On: 16-Jan-2016 Intent (J2930)By: Balbir Cramer MD Comments: Lot:[id number]:06/28Dose:125mgRoute:imSite:r hipGiven By:SASKIA signed CHEST XRAY, PA & LATERAL (16000)By: On: 16-Jan-2016 Intent Balbir Cramer MD Comments: ?PNA CAROTID ULTRASOUND (94496)By: Bela On: 16-Jan-2016 Intent Balbir ROSAS DEXA SCAN AXIAL SKELETON (98266)By: On: 16-Jan-2016 Intent Balbir Cramer MD MAMMOGRAM, SCREENING, BOTH BREAST On: 16-Jan-2016 Intent (36825)By: Balbir Cramer MD B 12 Injection, 1000 mcg (J3420)By: On: 16-Jan-2016 Intent Balbir Cramer MD Comments: lot: [id number]: ite/route: L del/IMamt: 1mLVIS signed when applicableMONSTER Molina B 12 Injection, 1000 mcg (J3420)By: On: 11-Oct-2015 Intent Balbir Cramer MD Flu Vaccine (Quadrivalent) 40222Ci: On: 11-Oct-2015 Intent Balbir Cramer MD Comments: Lot #[id number]/30/17ite-L dltd, IMDose prefilled syringegiven by:MAYCO OSWALD and ABN signed B 12 Injection, 1000 mcg (J3420)By: On: 22-May-2015 Intent Fast DO, Maylin A B 12 Injection, 1000 mcg (J3420)By: On: 17-Mar-2015 Intent Fast DO, Maylin A Comments: lot: [id number]: 10/27site/route: L del/IMamt: 1mLVIS signed when applicableChelsea, IMAGING SCIENCE PROFESSOR PNEUM VAC ADLT/IMUMNOSPR, SBC/INTRM On: 30-Dec-2014 Intent (06361)By: Maylin Melendez DO Comments: PNUEMOlot:[id number]:1*13*17site:Rt deltoidroute:IMdose:.5mlDEMICK, SMA B 12 Injection, 1000 mcg (J3420)By: On: 30-Dec-2014 Intent Maylin Melendez DO Comments: B12lot:[id number]:05/27site: LT deltoidROute: IMdose:1ml ADMINISTRATION OF INFLUENZA VIRUS On: 21-Oct-2014 Intent VACCINE (G0008)By: Maylin Melendez DO FLU VAC, SPLIT, >3 YEARS, INTRAMUSC On: 21-Oct-2014 Intent (10948)By: Maylin Melendez DO Comments: lot: [id number]: 08/09/16site/route: L del/IMamt: 1mLVIS signed when applicableChelsea, IMAGING SCIENCE PROFESSOR MAMMOGRAM, SCREENING, BOTH BREAST On: 05-Oct-2014 Intent (89302)By: Maylin Melendez DO Cartoid DopplerBy: Maylin Melendez DO On: 05-Oct-2014 Intent B 12 Injection, 1000 mcg (J3420)By: On: 05-Oct-2014 Intent Maylin Melendez DO Comments: Lot:[id number]:02Route:IMSite:R deltoidDose: 1 mLgiven by: Adalgisa Sexton CMA B 12 Injection, 1000 mcg (J3420)By: On: 01-Sep-2014 Intent Adalgisa Sexton Comments: Lot:[id number]:12.26Route:IMSite:R deltoidDose: 1 mLgiven by: Adalgisa Sexton CMA B 12 Injection, 1000 mcg (J3420)By: On: 26-May-2014 Intent Adalgisa Sexton Comments: lot:[id number]:04/25route:IMdose:1MLSite:R deltoidgiven by: ANS B 12 Injection, 1000 mcg (J3420)By: On: 11-Apr-2014 Intent Carinaursula PEDROZA Kaci Comments: lot: [id number]: 11/25Dose: 1,000 mcgSite: l dltdLocation; IMby: Solu -Medrol Injection, 125 mg On: 22-Feb-2014 Intent (J2930)By: Maylin Melendez DO Comments: [id number] 6.04781 mgleft gmIMas, EDITOR INDEX Solu -Medrol Injection, 125 mg On: 31-Jan-2014 Intent (J2930)By: Sherrie Amor CNP Comments: lot [id number] 06/2016location R hiproute imgiven by - msmith VIS and/or ABN signed B 12 Injection, 1000 mcg (J3420)By: On: 21-Jan-2014 Intent Maylin Melendez DO Comments: lot [id number] 05/2015location L armroute imgiven by - msmith VIS and/or ABN signed Aerosol Treatment (47945)By: Mt On: 14-Jan-2014 Intent Sherrie OJEDA Radiology - ChestBy: Sherrie Amor CNP On: 14-Jan-2014 Intent E Comments: stat call results to Dr Uriostegui is contact center director EKG ([id number])By: Sherrie Amor CNP On: 14-Jan-2014 Intent Comments: looks same as before No new ST -t wave changes ADMINISTRATION OF INFLUENZA VIRUS On: 29-Nov-2013 Intent VACCINE (G0008)By: Maylin Melendez DO Comments: Lot #[id number]-L dltd, IMDose prefilled syringegiven by:LORIN laurent and ABN signed FLU VAC, SPLIT, >3 YEARS, INTRAMUSC On: 29-Nov-2013 Intent (40362)By: Maylin Melendez DO B 12 Injection, 1000 mcg (J3420)By: On: 29-Nov-2013 Intent Maylin Melendez DO Comments: Antoinette us dltd, Im - see flowsheet for lot and exp Radiology - Knee - Left - Weight On: 06-Sep-2013 Intent BearingBy: Maylin Melendez DO MAMMOGRAM, SCREENING, BOTH BREAST On: 18-Aug-2013 Intent (35433)By: Fast DO, Maylin A B 12 Injection, 1000 mcg (J3420)By: On: 18-Aug-2013 Intent Al DO Maylin A Aerosol Treatment (76949)By: Mt On: 16-Jul-2013 Intent Sherrie OJEDA Aerosol Treatment (06610)By: Mt On: 09-Jul-2013 Intent Sherrie OJEDA Radiology [...] (J3420)By: On: 27-Apr-2013 Intent Visit, Nurse Comments: Lot:[id number]:12/25Dose:1mlRoute:IMSite:l armGiven By:SASKIA signed Aerosol Treatment (55966)By: Moody On: 17-Feb-2013 Nia Amaya DO, DO, Kathleen Comments: more q/e less cough -- ok to use rescue inhaler prn not moer than bid with a fib -- if needs ansd worsen go to ER-- pulse reguar after treatment Spirometry (77744)By: Moody MCFARLAND, On: 17-Feb-2013 Intent Nia Reed DO Comments: mild restriction -- stable Solu- Medrol Injection, 125mg On: 17-Feb-2013 Intent (J2930)By: Nia Uriostegui DO Comments: lot: [id number]: 16site/route: RGM/IMamt: 2mLVIS signed when applicableChelsMONSTER armenta DO, Kathleen Eprescribed prescriptions (G8553)By: On: 17-Feb-2013 Intent Nia Uriostegui DO DONia EKG (86630)By: Maylin Melendez DO A On: 12-Jan-2013 Intent Comments: ekg showed normal sinus rhythym, left axis, no acute st/t wave changes Pelvic and Breast, Medicare On: 12-Jan-2013 Intent (G0101)By: Natalya Kohli Eprescribed prescriptions (G8553)By: On: 18-Dec-2012 Intent Maylin Melendez DO FLU VAC, SPLIT, >3 YEARS, INTRAMUSC On: 18-Dec-2012 Intent (90616)By: Natalya Kohil Comments: Lot #:[id number] date:mount given:0.5mlRoute: IMSite given: L dltdVIS and ABN signedGiven by: CHILO Gillespie ADMINISTRATION OF INFLUENZA VIRUS On: 18-Dec-2012 Intent VACCINE (G0008)By: Natalya Kohli B 12 Injection, 1000 mcg (J3420)By: On: 01-Dec-2012 Intent Tracy Barnes Comments: Lot:[id number]:09/24Dose:1mlRoute:IMSite:l armGiven By:SASKIA signed Eprescribed prescriptions (G8553)By: On: 02-Nov-2012 Intent Cipily OJEDA Shrerie Beck Radiology - Foot - RightBy: Ciesa On: 02-Nov-2012 Intent CHUTE OPERATOR, Carlotta B 12 Injection, 1000 mcg (J3420)By: On: 19-Oct-2012 Intent Tracy Barnes Comments: lot: [id number]: 09/23site/route: L deltoid/IMamt: 1mLVIS signed when applicableChelsea, IMAGING SCIENCE PROFESSOR B 12 Injection, 1000 mcg (J3420)By: On: 31-Aug-2012 Intent Maylin Melendez DO Comments: Lot: [id number]: Pdf71Elc: 1000mcg/1mlRoute: IMSite: L deltoidGiven by: KASIA Samson Eprescribed prescriptions (G8553)By: On: 31-Aug-2012 Intent Natalya Kohli Nuclear Medicine - Other - Vertebral On: 18-Aug-2012 Intent AssessmentBy: Maylin Melendez DO Comments: V DXA, BONE DENSITY, AXIAL SKELETON On: 22-Jun-2012 Intent (58472)By: Maylin Melendez DO MAMMOGRAM, SCREENING, BOTH BREASTS On: 22-Jun-2012 Intent (85278)By: Maylin Melendez DO B 12 Injection, 1000 mcg (J3420)By: On: 15-Jun-2012 Intent Tracy Barnes Comments: lot: [id number]: 12/24site/route: R deltoid/IMamt: 1,000mcgVIS signed when applicableChelsea, IMAGING SCIENCE PROFESSOR Eprescribed prescriptions (G8553)By: On: 17-Apr-2012 Intent Natalya Kohli B 12 Injection, 1000 mcg (J3420)By: On: 13-Apr-2012 Intent Ramona Vásquez Comments: Lot:[id number]:01/23Dose:1mlRoute:IMSite:r armGiven By:SASKIA signed Eprescribed prescriptions (G8553)By: On: 27-Mar-2012 Intent Susie Lopez LPN FLU VAC, SPLIT, >3 YEARS, INTRAMUSC On: 17-Jan-2012 Intent (19246)By: Maylin Melendez DO Comments: Lot #[id number]/13Site-left deltoidgiven by: Emili Stark LPN ADMINISTRATION OF INFLUENZA VIRUS On: 17-Jan-2012 Intent VACCINE (G0008)By: Maylin Melendez DO Eprescribed prescriptions (G8553)By: On: 17-Jan-2012 Intent Natalya Kohli B 12 Injection, 1000 mcg (J3420)By: On: 31-Dec-2011 Intent Maylin Melendez DO Comments: Lot:[id number]:Dose:1mlRoute:IMSite:L armGiven By:JACQUIE Aerosol Treatment (14009)By: Mt On: 24-Dec-2011 Intent Sherrie OJEDA B [...] week and copy to dr clements EKG (18355)By: Maylin Melendez DO On: 17-Sep-2011 Intent Comments: [...] MAMMOGRAM, SCREENING, BOTH BREASTS On: 14-May-2011 Intent (61551)By: Maylin Melendez DO CT - ChestBy: Maylin [...] Intent (J2930)By: Sherrie Amor CNP Comments: Lot #[id number]-R hip, IMDose 125mg, 2 mlgiven by: Aerosol Treatment (93586)By: Mt On: 24-Aug-2010 Intent Sherrie OJEDA Pulse Oximetry (26719)By: Keesha RN, On: 24-Aug-2010 Intent Ericka Spirometry (47887)By: Maylin Melendez DO On: 03-Aug-2010 Intent A Comments: good efffort and curve normal EKG (41946)By: Maylin Melendez DO A On: 03-Aug-2010 Intent Comments: ekg showed normal sinus rhythym, normal axis, no acute st/t wave changes poor r wave progression Radiology - Chest- PA and LatBy: Fast On: 03-Aug-2010 Intent Maylin MCFARLAND B 12 Injection, 1000 mcg (J3420)By: On: 11-Jul-2010 Intent Carol Stark LPN Comments: Lot #[id number]-01/20Site-left deltoidDose-1 mlgiven by: Emili Stark LPN TD Injection , IM (61341)By: Al On: 20-Apr-2010 Intent Maylin MCFARLAND Comments: Lot #[id number]/Site-L dtd, IMDose prefilledgiven by: B 12 Injection, 1000 mcg (J3420)By: On: 04-Apr-2010 Intent Carol Stark LPN Comments: Lot #[id number]-/12Site-left deltoidDose-1 mlgiven by:[facility] B 12 Injection, 1000 mcg (J3420)By: On: 16-Jan-2010 Intent Carol Reina LPN Comments: Lot #[id number]-8/11Site-R comEhej0lvhjlob by: B 12 Injection, 1000 mcg (J3420)By: On: 12-Dec-2009 Intent Carol Stark LPN Comments: Lot #[id number]-06/21Site-left deltoidDose-1 mlgiven by:MAYRA FLU VAC, SPLIT, >3 YEARS, INTRAMUSC On: 14-Nov-2009 Intent (55671)By: Natalya Kohli ADMINISTRATION OF INFLUENZA VIRUS On: 14-Nov-2009 Intent VACCINE (G0008)By: Natalya Kohli Comments: Lot #: [id number] date:mount given: 0.5 mlRoute: IMSite given: left deltoid Given by: Lane Romeo RN DXA, BONE DENSITY, AXIAL SKELETON On: 01-Nov-2009 Intent (73386)By: Maylin Melendez DO MAMMOGRAM, SCREENING, BOTH BREASTS On: 01-Nov-2009 Intent (99557)By: Maylin Melendez DO ADMINISTRATION OF PNEUMOCOCCAL On: 01-Nov-2009 Intent VACCINE (G0009)By: Maylin Melendez DO PNEUM VAC ADLT/IMUMNOSPR, SBC/INTRM On: 01-Nov-2009 Intent (14995)By: Maylin Melendez DO B 12 Injection, 1000 mcg (J3420)By: On: 01-Nov-2009 Intent Carol Reina LPN Comments: Lot #[id number]-06/21Site-L dltdDose 30m/mlgiven by:KASIA GONZALES Pneumovax (38375)By: Carol Reina LPN On: 01-Nov-2009 Intent L Comments: Lot #[id number]-August 2010Site-R dltdDose 0.5mlgiven by:KASIA ANDERS B 12 Injection, 1000 mcg (J3420)By: On: 25-Aug-2009 Intent Carol Stark LPN Comments: Lot #[id number]-/12Site-left deltoidDose-1 mlgiven by:[facility] B 12 Injection, 1000 mcg (J3420)By: On: 13-Jul-2009 Intent Monik Rushing Comments: Lot #[id number]-01/2011Site-left tdgculeJftw9718evg/1mlgiven by Diana Rushing LPN CT - ChestBy: Fast DO, Maylin A On: 05-Jun-2009 Intent Spirometry (13402)By: Seun, On: 05-Jun-2009 Intent Natalya Comments: goo deffort and curve mild small airway obst B 12 Injection, 1000 mcg (J3420)By: On: 24-May-2009 Intent Carol Stark LPN Comments: Lot #[id number]-8/11Site-right deltoidDose-1 mlgiven by:[facility] Radiology - Knee - Right - Weight On: 23-Dec-2008 Intent BearingBy: Fast DO, Maylin A B 12 Injection, 1000 mcg (J3420)By: On: 23-Dec-2008 Intent Natalya Kohli Comments: Lot #:[id number] date:mount given:1mlRoute: IMSite given:left deltoidGiven by: CHILO Gillespie Aerosol Treatment (68606)By: On: 08-Nov-2008 Intent Natalya Carter Comments: post treatment breath sounds clear bilat. pt. states feels breathing better. Pulse Oximetry (95856)By: Raul, On: 08-Nov-2008 Intent Natalya Comments: 95% [...] Layton Melendez DOa A Comments: Lot #[id number]-12/2009Site-left xgayjxyJxre6149rjq/1mlgiven by Diana Rushing LPN CT - Brain/HeadBy: Maylin Melendez DO A On: 31-May-2008 Intent EKG (66160)By: Maylin Melendez DO On: 10-May-2008 Intent Comments: ekg showed normal sinus rhythym, leftaxis, nonspecific t changges unchanged fromprevious Echo CompleteBy: Layton Melendez DOa A On: 10-May-2008 Intent PFT - CompleteBy: Maylin Melendez DO A On: 10-May-2008 Intent Pulse Oximetry (84099)By: Al MCFARLAND, On: 10-May-2008 Intent Maylin A Comments: 95 Spirometry (20170)By: Maylni Melendez DO On: 10-May-2008 Intent A Comments: good effort and curve mild restriction CT - ChestBy: Maylin Melendez DO A On: 10-May-2008 Intent Bio Z (15712)By: Maylin Melendez DO A On: 10-May-2008 Intent [...] 01-Jan-2008 Intent Monik Rushing Comments: Lot #[id number]-5/10Site-left rlzxelvFkvl7vhmwlqo by Diana Rushing LPN INJECTION, VITAMIN B-12 On: 03-Dec-2007 Intent CYANOCOBALAMIN, UP TO 1000 MCG Comments: injection given in left deltoid, Ptolerated welllo # [id number] 06/19 (Special Coverage Instructions Apply. See CIM: 45-4 and MCM: 2048) (J3420)By: Irais Monreal B 12 Injection, 1000 mcg (J3420)By: On: 26-Nov-2007 Intent Monik Rushing Comments: Lot #[id number]-5/10Site-left ureaehvDjgk6bvkimnx by Diana Rushing LPN INJECTION, VITAMIN B-12 [...] Maylin Melendez DO On: 30-Oct-2007 Intent Spirometry (62309)By: Maylin Melendez DO On: 30-Oct-2007 Intent A Comments: good effort and curve- some small airway decrease Radiology - Chest- PA and LatBy: Fast On: 30-Oct-2007 Intent DO Maylin A DXA, BONE DENSITY, AXIAL SKELETON On: 24-Jul-2007 Intent (28064)By: Maylin Melendez DO Comments: postmenopausal without estrogen MAMMOGRAM, SCREENING, BOTH BREASTS On: 24-Jul-2007 Intent (78384)By: Maylin Melendez DO Radiology - Knee - Right - Weight On: 15-Jun-2007 Intent BearingBy: Maylin Melendez DO Comments: call results CT - ChestBy: Maylin Melendez DO On: 03-Apr-[address] - ChestBy: Maylin Melendez DO On: 15-Aug-2006 Intent Spirometry ([id number])By: Maylin Melendez DO On: 15-Aug-2006 Intent A Comments: good effort and curve- mild obstruction EKG ([id number])By: Natalya Kohli On: 15-Aug-2006 Intent Comments: ekg showed normal sinus rhythym, normal axis, no acute st/t wave changes Radiology - ChestBy: LEE OJEDA, On: 25-Jun-2006 Intent PAMELA Comments: PA and LAT Solu- Medrol Injection, 125mg On: 25-Jun-2006 Intent ([id number])By: PAMELA HOWARD CNP Pulse Oximetry ([id number])By: LEE OJEDA, On: 25-Jun-2006 Intent PAMELA Comments: pt tolerated well. ins waiver signed Aerosol Treatment ([id number])By: LEE On: 25-Jun-2006 Intent PAMELA OJEDA Comments: ins wwaiver signed, pt tolerated well Spirometry ([id number])By: Maylin Melendez DO On: 14-May-2006 Intent A Comments: good effort and curve-mild obstruction ADMINISTRATION OF PNEUMOCOCCAL On: 11-Feb-2006 Intent VACCINE ([id number])By: ULYSSES Quiñones PNEUM VAC ADLT/IMUMNOSPR, SBC/INTRM On: 11-Feb-2006 Intent ([id number])By: ULYSSES Quiñones Bio Z ([id number])By: Maylin Melendez DO On: 11-Feb-2006 Intent Comments: bp was 132/65- cardiac output, svr and thoracic fluid content is normal- will hold on med changes PNEUM VAC ADLT/IMUMNOSPR, SBC/INTRM On: 11-Feb-2006 Intent ([id number])By: Maylin Melendez DO ADMINISTRATION OF PNEUMOCOCCAL On: 11-Feb-2006 Intent VACCINE ([id number])By: Maylin Melendez DO MAMMOGRAM, SCREENING, BOTH BREASTS On: 16-Oct-2005 Intent ([id number])By: Maylin Melendez DO A Planned Medications INJECTION, METHYLPREDNISOLONE SODIUM SUCCINATE, UP TO 125 MG Ordered: 21-Jun-2013 Pending Mt CHUTE OPERATOR, Carlotta INJECTION, METHYLPREDNISOLONE SODIUM SUCCINATE, UP TO 125 MG Ordered: 17-Feb-2013 Pending Nia Uriostegui DO, DO, Nia INJECTION, METHYLPREDNISOLONE SODIUM SUCCINATE, UP TO 125 MG Ordered: 31-Jan-2014 Pending Ciesa CHUTE OPERATOR, Carlotta INJECTION, METHYLPREDNISOLONE SODIUM SUCCINATE, UP TO 125 MG Ordered: 24-Aug-2010 Pending Ciesa CHUTE OPERATOR, Carlotta INJECTION, METHYLPREDNISOLONE SODIUM SUCCINATE, UP [...] MCG/ML Injection Solution Ordered: 17-Mar-2015 Pending Al MCFRALAND, Maylin A Vitamin B-12 1000 MCG/ML Injection [...] MCG/ML Injection Solution Ordered: 12-Dec-2009 Pending Hluszti EDITOR INDEX, Carol Vitamin B-12 1000 MCG/ML Injection Solution Ordered: 12-Feb-2017 Pending Moody DO, Nia Moody DO, Nia Vitamin B-12 1000 MCG/ML Injection Solution Ordered: 16-Jan-2010 Pending Long EDITOR INDEX, Carol L Vitamin B-12 1000 MCG/ML Injection Solution Ordered: 04-Apr-2010 Pending Hluszti EDITOR INDEX, Carol Vitamin B-12 1000 MCG/ML Injection Solution Ordered: 11-Jul-2010 Pending Hluszti EDITOR INDEX, Carol Vitamin B-12 1000 MCG/ML Injection Solution Ordered: 21-Nov-2010 Pending Long EDITOR INDEX, Carol L Vitamin B-12 1000 MCG/ML Injection Solution Ordered: 14-Jan-2011 Pending Natalya Kohli Vitamin B-12 1000 MCG/ML Injection Solution Ordered: 15-Feb-2011 Pending Long EDITOR INDEX, Carol L Vitamin B-12 1000 MCG/ML Injection Solution Ordered: 18-Mar-2011 Pending Hluszti EDITOR INDEX, Carol Vitamin B-12 1000 MCG/ML Injection Solution Ordered: 16-Apr-2011 Pending Ericka Thao RN Vitamin B-12 1000 MCG/ML Injection Solution Ordered: 23-May-2011 Pending Eircka Thao RN Vitamin B-12 1000 MCG/ML Injection Solution Ordered: 22-Jul-2011 Pending Hluszti EDITOR INDEX, Carol Vitamin B-12 1000 MCG/ML Injection Solution [...] Reason for ER visit: note: (afib in [facility] from sat till wed). [...] well. Patient has been compliant with instructions. [facility] End: 04-Apr-2015 23:22 t medication [...] SOB. 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 The patient has noticed nothing from the geriatic depression scale. Other providers contributing to the patient's care are med admin, gastrologist an d other: (neurologist). 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 The patient feels well with no complaints [...] first time happened while family there at [place] while family eating dinner - other time happened when her friend was talking about his open heart surgery - feels like may be panic or anxiety- she was at med admin a few mos ago and he had [...] [facility] End: 06-Sep-2005 6:51 Payers [facility] BenefitJuderan sherman guarantor
--- OUTSIDE RECORDS SUMMARY | 2018-02-18 04:48 | XMS RPT_ITS | Continuity of Care Document ---
:1940 Author Organization [facility] Address [address] [place] [address] Phone Care Team Providers Name Role Phone Nia Uriostegui DO Unavailable Je Rodriguez Unavailable Dr. 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) Comments: Dr Rivas in [place], 09/25, does MRI every year , not [...] Lopez LPN Start : 31-Jul-2016 Active Pen Onarga 5/16 31G X 8 MM Miscellaneous 1 [...] for 0 days Refills: 0 Ordered:27-Feb-2016 Long FREIGHT AND PASSENGER AGENT, Carol L End : 27-Feb-2016 Inactive NASONEX, 50MCG/ACT (Nasal Suspension) 1-2 squirts Suspension daily for 0 days Quantity: 1 {Unspecified} Refills: 0 Ordered:14-Jan-2014 ULYSSES Quiñones Start : 05-May-2013 End : 14-Jan-2014 Inactive Potassium Chloride ER 20 MEQ Oral Tablet Extended Release 1 (one) Tablet ER Tablet ER daily for 0 days Quantity: 60 {Tablet} Refills: 0 Ordered:27-Feb-2016 Long FREIGHT AND PASSENGER AGENT, Carol L Start : 29-Jun-2014 End : [...] End : 07-Nov-2016 Inactive VITAMIN D (ERGOCALCIFEROL), 77701PJTQ (Oral Capsule) 1 cap once a week (42680 UNIT) Inactive Vitamin D3 21661 UNIT Oral Tablet 1 (one) Tablet weekly [...] : 17-Apr-2012 End : 17-Apr-2012 Discontinued ERGOCALCIFEROL, 13924GJYG (Oral Capsule) 1 (one) Capsule q week [...] switch to her tradjenta VITAMIN D (ERGOCALCIFEROL), 48564QNKF (Oral Capsule) 1 Capsule twice a week [...] so will get her back to [facility] Status: Inactive as of 24-Apr-2016 [...] Operative Report Result: Comments: See Note; NOTES: [facility] Medical Records Department [address] [place] [address] Operative Report 11/03/17 1228 MR#: [id number] Acct: [id number] Name: COMFORT OLSON Rep #: [id number] : 1940 76 From: Patrick Ellsworth MD PCP: Nia Uriostegui DO Status: [facility] Location: [facility] Problem List (1) New onset atrial flutter Status: Acute (2) Atherosclerotic heart disease of [place] coronary artery without angina pectoris Status: Chronic Qualifiers: [place] vs. transplanted heart: [place] heart Qualified Code(s): I25.10 - Atherosclerotic heart disease of [place] nitin nary artery without angina pectoris Comment: 08/06/2004 CABG x2 VILLAGRAN side to side to second Diagonal and end to side to Anterior Descending artery in Sequential fashion. [facility]: 08/01/2004; 10/15/2011 (3) Cardiomyopathy in diseases [...] is a 76-year-old female who presented to [facility] for an elective outpat ient [...] Visit 9xxxx: Other Procedure See Report - [id number] 11/04/17 0525 <Electronically signed by Patrick Ellsworth MD> Date Patrick Ellsworth MD CC: Patrick Ellsworth MD; Jonel Rashid MD; Nia Uriostegui DO Signed 03-Nov-2017 Operative Report Result: Comments: See Note; NOTES: [facility] Medical Records Department [address] [place] [address] Operative Report 11/03/174 MR#: [id number] Acct: [id number] Name: COMFORT OLSON Lane Rep #: [id number] : 1940 76 From: Jonel Rashid MD [...] Visit Report Result: Comments: See Note; NOTES: [facility] [address] [place] [address] OFFICE VISIT Date of Service: 10/08/17 MR#: [id number] Acct: [id number] Name: COMFORT OLSON Re p #: [id number] : 1940 Provider: Jonel Rashid MD Age/Sex: 76/F Location: [facility] Status: Signed HPI [facility] Chief Complaint: Follow up Details: COMFORT OLSON, [...] 70 Intake Visit Reasons: ER 8-20 per MANAGER MOLECULAR Allergies No Known Allergies Allergy (Verified 10/08/17 [...] PO BID 08/24/17 [History Confirmed 10/05/17] Methscopolamine Sawyer 5 mg P O BID 08/24/17 [History [...] atrial fibrillation (Chronic) Atherosclerotic heart disease of [place] coronary artery without angina pectoris (Chronic) HLD [...] bundle branch block. 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 (rn neurosurgical) Coding Level of Care Code Off vis,est,level [...] Lead Electrocardiogram Result: Comments: See Note; NOTES: [facility] Cardiovascular Services [address] [place] [address] 12 Lead EKG 10/05/17 0149 MR#: [id number] Acct: [id number] Name: COMFORT OLSON Rep # : [id number] : 1940 76 From: Jonel Rashid MD [...] ECG Confirmed by JONEL RASHID MD ([id number]), story editor AMIRA CASTRO ([id number]) on 10/07/2017 2:45:19 PM Referred By: Jonel Rashid Confirmed By:JONEL RASHID MD 10/07/17 4379 Date _ Jonel Rashid MD CC: Emery Allen MD; Nia Uriostegui DO Signed 07-Oct-2017 12 Lead Electrocardiogram Result: Comments: See Note; NOTES: [facility] Cardiovascular Services [address] [place] [address] 12 Lead EKG 10/05/17 0333 MR#: [id number] Acct: [id number] Name: COMFORT OLSON Rep # : [id number] : 1940 76 From: Jonel Rashid MD [...] ECG Confirmed by JONEL RASHID MD ([id number]), story editor AMIRA CASTRO (56) on 10/07/2017 2:42:56 PM Referred By: Kathleen Rashid Confirmed By:JONEL RASHID MD 10/07/17 1442 Date Jonel Rashid MD CC: Emery Allen MD; Nia Uriostegui DO Signed 05-Oct-2017 Discharge Instruction Result: Comments: See Note; NOTES: [facility] Medical Records Department [address] [place] [address] Discharge Instruction 10/05/17 0440 MR#: [id number] Acct: [id number] Name: FRITZLiyah Sherman Rep #: [id number] : 1940 76 From: Emery Allen MD [...] Primary Care Provi latrell. Call [facility] Registry ([phone]) or report to the closest Emergency Room. Call 911 if necessary. 10/05/17 0528 <Electronically signed by Emery Allen MD> Date ____ Emery Allen MD Cosigner Signature (If Indicated): Date CC: Nia Uriostegui DO 05-Oct-2017 Emergency Department Summary Result: Comments: See Note; NOTES: [facility] Medical Records Department [address] [place] [address] Emergency Department Summary 10/05/17 0435 MR#: [id number] Acct: [id number] Name: COMFORT OLSON Rep #: [id number] : 1940 76 From: Emery Allen MD [...] flutter This not e was generated with LookUP dictation software. It may contain incorrect words, [...] your Primary Care Provider. Call [facility] ([phone]) or report to the closest Emergency Room. Call 911 if necessary. 10/05/17 0528 &#60 ;Electronically signed by Emery Allen MD> Date Emery Allen MD Cosigner Signature (If Indicated): Date CC: Nia Uriostegui DO 05-Oct-2017 Chest 1 View (Portable) Result: Comments: See Note; NOTES: [facility] Imaging Services [address] [place] [address] Chest 1 View (Portable) MR#: [id number] Acct: [id number] Name: COMFORT OLSON Rep #: [id number] : 1940 F 76 From: Chris Dwyer MD PCP: Nia Uriostegui DO Status: REG ER Study: Chest 1 View (Portable) Date of Exam: 10/05/17 Exam# [id number] Ordering Dr: Emery Allen MD STUDY: X-R [...] of the upper abdomen. ORDER # : [id number] RAD/Chest 1 View (Portable) IMPRESSION: Mild cardiomegaly. Minimal persistent left basilar atelectasis. No evidence for acute cardiopulmonary pathology. Electronically Signed: Chris Dwyer MD at 2:42 EDT , Service support , CC: Emery Allen MD; Nia Uriostegui DO Wash Oil Pump Operator: Signed 03-Oct-2017 12 Lead Electrocardiogram Result: Comments: See Note; NOTES: [facility] Cardiovascular Services [address] [place] [address] 12 Lead EKG 10/02/17 1353 MR#: [id number] Acct: [id number] Name: COMFORT OLSON Rep # : [id number] : 1940 76 From: Jonel Rashid MD Attending Dr: Gay ROSAS,Jonel Status: REG CLI Ordering Dr: Richard Lombardo NP-Kathleen Date: 10/02/17 Location: [facility] Sex: F C Admitted: Test Reason [...] ECG Confirmed by JONEL RASHID MD ([id number]), story editor AMIRA CASTRO (56) on 10/03/2017 1:43:28 PM Referred By: Jonel Rashid Confirmed By:USMAN RASHID MD 10/03/17 1343 Date Jonel Rashid MD CC: JOSSELYN Lombardo; Jonel Rashid MD; Nia Uriostegui DO Signed 02-Oct-2017 Echo, Complete w/ Contrast Result: Comments: See Note; NOTES: [facility] Cardiovascular Services [address] [place] [address] Echo Complete W/ Contrast 10/02/17 1250 MR#: [id number] Acct: [id number] Name: COMFORT JONES Rep #: [id number] : 1940 76 From: Jonel Rashid MD Attending Dr: Jonel Rashid MD Status: REG CLI Ordering Dr: Jonel Rashid MD Date: 10/02/17 Location: [facility] Sex: F C Admitted: Reason Fo [...] the LV function is improved. Ordering Physician: Jnoel Rashid Referring Physician: Jonel Rashid erformed By: Rachel Oconnor, MILACS, RVT 10/02/171742 Date Jonel Rashid MD CC: Jonel stubbs MD; Nia Uriostegui DO Date Dictated: 10/02/17 1250 Date Transcribed: 10/02/171742 Wash Oil Pump Operator: Signed 02-Oct-2017 12 Lead Electrocardiogram Result: Comments: See Note; NOTES: [facility] Cardiovascular Services [address] [address] 12 Lead EKG 09/29/17 1035 MR#: [id number] Acct: [id number] Name: COMFORT OLSON Rep # : [id number] : 1940 76 From: Antonio Tovar MD [...] ECG Confirmed by ZARA ROSAS, ANTONIO ([id number]), story editor AMIRA CASTRO (56) on 10/02/2017 1:30:21 PM Refer red By: BOZENA Confirmed By:ANTONIO TOVAR MD 10/02/17 1330 Date Antonio Tovar MD CC: Nia Uriostegui DO; Jignesh Tello MD Signed 02-Oct-2017 12 Lead Electrocardiogram Result: Comments: See Note; NOTES: [facility] Cardiovascular Services [address] [place] [address] 12 Lead EKG 09/29/17 1020 MR#: [id number] Acct: [id number] Name: COMFORT OLSON Rep # : [id number] : 1940 76 From: Antonio Tovar MD [...] Abnormal ECG Confirmed by ANTONIO TOVAR MD ([id number]), story editor AMIRA CASTRO (56) on 10/02/2017 1:27:54 PM Referred By: BOZENA Confirmed By:ANTONIO TOVAR MD 10/02/17 1327 Date Antonio Tovar MD CC: Nia Uriostegui DO; Jignesh Tello MD Signed 02-Oct-2017 12 Lead Electrocardiogram Result: Comments: See Note; NOTES: [facility] Cardiovascular Services [address] [place] [address] 12 Lead EKG 09/29/17 0905 MR#: [id number] Acct: [id number] Name: COMFORT OLSON Rep # : [id number] : 1940 76 From: Antonio Tovar MD [...] Abnormal ECG Confirmed by ANTONIO TOVAR MD ([id number]), story editor AMIRA CASTRO (56) on 10/02/2017 1:27:13 PM Referred By: BOZENA Anne d By:ANTONIO TOVAR MD 10/02/17 1327 Date Antonio Tovar MD CC: Nia Uriostegui DO; Jignesh Tello MD Signed 02-Oct-2017 12 Lead Electrocardiogram Result: Comments: See Note; NOTES: [facility] Cardi[facility] Services [address] [place] [address] 12 Lead EKG 09/29/17 0926 MR#: [id number] Acct: [id number] Name: COMFORT OLSON Rep # : [id number] : 1940 76 From: Antonio Tovar MD [...] ECG Confirmed by ZARA ROSAS, ANTONIO ([id number]), story editor AMIRA CASTRO (56) on 10/02/2017 1:26:27 PM Referr ed By: BOZENA Confirmed By:ANTONIO TOVAR MD 10/02/171325 Date Antonio Tovar MD CC: Nia Uriostegui DO; Jignesh Tello MD Signed 29-Sep-2017 Emergency Department Summary Result: Comments: See Note; NOTES: [facility] Medical Records Department [address] [place] [address] Emergency Department Summary 09/29/17 0912 MR#: [id number] Acct: [id number] Name: COMFORT OLSON Rep #: [id number] : 1940 76 From: Jignesh Tello MD [...] Sinus bradycardia. This note was generated with LookUP dictation software. It may contain incorrect words, [...] problems, contact your Primary Care Provider. Call [facility] ([phone]) or report to the closest Emergency Room. Call 911 if necessary. 09/29/17 0758 <Electronically si gned by Jignesh Tello MD> Date Jignesh Tello MD Cosigner Signature (If Indicated): Date CC: Nia Uriostegui DO 29-Sep-2017 Chest 1 View (Portable) Result: Comments: See Note; NOTES: [facility] Imaging Services [address] [place] [address] Chest 1 View (Portable) MR#: [id number] Acct: [id number] Name: COMFORT OLSON Rep #: [id number] : 1940 F 76 From: John Babcock MD PCP: Nia Uriostegui DO Status: REG ER Study: Chest 1 View (Portable) Date of Exam: 09/29/17 Exam# [id number] Ordering Dr: Jignesh Tello MD STUDY: X-RAY [...] John Babcock MD at 9:55 EDT Tel [phone], Service support , CC: Nia Uriostegui DO; Jignesh Tello MD Wash Oil Pump Operator: Signed 25-Sep-2017 Cardiology Visit Report Result: Comments: See Note; NOTES: [facility] [address] [place] [address] OFFICE VISIT Date of Service: 09/25/17 MR#: [id number] Acct: [id number] Name: COMFORT OLSON p #: [id number] : 1940 Provider: Jonel Rashid MD Age/Sex: 76/F Location: [facility] Status: Signed HPI HPI Chief Complaint: [...] Lt brachial Intake Visit Reasons: 6 M Headhunter Required: No Accompanied by: nonw Is patient [...] BID 08/24/17 [History Confirmed 09/25/17] Met hscopolamine Sawyer 5 mg PO BID 08/24/17 [History Confirmed [...] enlargement, left (Chronic) Atherosclerotic heart disease of [place] coronary artery without angina pectoris (Chronic) HTN [...] only without the valsartan. 4. Atherosclerosis of [place] coronary artery of [place] heart without angina pectoris I25.10 08/06/2004 CA BG x2 VILLAGRAN side to side to second Diagonal and end to side to Anterior Descending artery in Sequential fashion. [facility]: 08/01/2004; 10/15/2011 Plan She does have [...] Other Medications New: Follow Up 6 Months (rn neurosurgical) Coding Level of Care Code Off vis,est,level 4 Diagnoses Paroxysmal atrial fibrillation I48.0 Cardiomyopathy in diseases c lassified elsewhere I43 Essential hypertension I10 Hypertension type: essential hypertension Atherosclerosis of [place] coronary artery of [place] heart without angina pectoris I25.10 [place] vs. transplan joel heart: [place] heart Mixed hyperlipidemia E78.2 Hyperlipidemia type: mixed hyperlipidemia Coding Level of Care Code Off vis,est,level 4 Diagnoses Paroxysmal atrial fibrillation I48.0 Cardiomyopath y in diseases classified elsewhere I43 Essential hypertension I10 Hypertension type: essential hypertension Atherosclerosis of [place] coronary artery of [place] heart without angina pectoris I25.10 [place] vs. transplanted heart: [place] heart Mixed hyperlipidemia E78.2 Hyperlipidemia type: mixed hyperlipidemia 09/25/17 1029 <Electronically signed by Jonel Rashid MD> Date __ Jonel Rashid MD Cosigner Signature: Date (if applicable) CC: Nia Uriostegui DO 26-Aug-2017 12 Lead Electrocardiogram Result: Comments: See Note; NOTES: [facility] Cardiovascular Services [address] [place] [address] 12 Lead EKG 08/24/17 1336 MR#: [id number] Acct: [id number] Name: COMFORT OLSON Rep # : [id number] : 1940 76 From: Jonel Rashid MD [...] ECG Confirmed by JONEL RASHID MD ([id number]), story editor AMIRA CASTRO (56) on 08/26/2017 1:37:24 PM Referred B y: YONI Confirmed By:JONEL RASHID MD 08/26/17 1337 Date Jonel Rashid MD CC: Nia Uriostegui DO; Alexis Kemp MD Signed 26-Aug-2017 12 Lead Electrocardiogram Result: Comments: See Note; NOTES: [facility] Cardi[facility] Services [address] [place] [address] 12 Lead EKG 08/24/17 0956 MR#: [id number] Acct: [id number] Name: COMFORT OLSON Rep # : [id number] : 1940 76 From: Jonel Rashid MD [...] ECG Confirmed by GAY ROSAS, JONEL ([id number]), story editor AMIRA CASTRO (56) on 08/26/2017 12:50:18 PM Referred By: YONI Confirmed By:JONEL RASHID MD 08/26/17 1250 Date Jonel Rashid MD CC: Nia Uriostegui DO; Alexis Kemp MD Signed 24-Aug-2017 Emergency Department Summary Result: Comments: See Note; NOTES: [facility] Medical Records Department [address] [place] [address] Emergency Department Summary 08/24/17 1336 MR#: [id number] Acct: [id number] Name: COMFORT OLSON Rep #: [id number] : 1940 76 From: Alexis Kemp MD [...] coronary disease This note was generated with LookUP dictation software. It may contain in correct [...] your Primary Care Provider. Call [facility] ([phone]) or report to the [facility] Emergency Room. Call 911 if necessary. 08/24/17 1340 <Electronically signed by Alexis Kemp MD> Date Alexis Villasenor Signsully re (If Indicated): Date CC: Jonel Rashid MD; Nia Uriostegui DO 24-Aug-2017 Chest PA and Lateral Result: Comments: See Note; NOTES: [facility] Imaging Services [address] [place] [address] Chest PA and Lateral MR#: [id number] Acct: [id number] Name: COMFORT OLSON Rep #: [id number] : 1940 F 76 From: Clyde Matute MD PCP: Nia Uriostegui DO Status: REG ER Study: Chest PA and Lateral Date of Exam: 08/24/17 Exam# [id number] Ordering Dr: Alexis Kemp MD STUDY: X-RAY [...] CC: Nia Uriostegui DO; Alexis Kemp MD Wash Oil Pump Operator: Signed 02-Jun-2017 12 Lead EKG performed by [facility] Result: Comments: See Note; NOTES: [facility] [address] [place] [address] 12 Lead EKG performed by [facility] 06/02/17 1121 MR#: [id number] Acct: [id number] Name: COMFORT OLSON Rep #: [id number] : 1940 76 From: Annemarie BLOOD Attending Dr: Annemarie Parsons Status: DEP AMB Ordering Dr: Annemarie Parsons Date: 06/02/17 Location: [facility] Sex: F C Admitted: BMS/12 Lead EKG [...] Dictated: 06/02/17 1121 Date Transcribed: 06/02/17 112 Wash Oil Pump Operator: BARBY Signed 29-May-2017 Cardiology Visit Report Result: Comments: See Note; NOTES: [facility] [address] [place] [address] [address] [place] [address] OFFICE VISIT Date of Service: 05/26/17 MR#: [id number] Acct: [id number] Name: COMFORT OLSON Re p #: [id number] : 1940 Provider: Annemarie Parsons Age/Sex: 76/F Location: [facility] Status: Signed HPI HPI Details: COMFORT OLSON, [...] surgery in 2004. She had an VILLAGRAN obtu-kf-vwlb to second diagonal and to anterior descending [...] (BMI) 33.3 Intake Visit Reasons: per Susi Headhunter Required: No Accompanied by: NONE Is patient [...] PO DAILY 11/11/16 [History Confirmed 05/26/17] Methscopolamine Sawyer 5 mg PO BID 11/11/16 [History Confirmed [...] enlargement, left (Chronic) Atherosclerotic heart disease of [place] coronary artery without angina pectoris (Chronic) HTN [...] week for an EKG. 2. Atherosclerosis of [place] coronary artery of [place] heart without angina pectoris I25.10 08/06/2004 CABG x2 VILLAGRAN side to side to second Diagonal and end to side to Anterior [place] cending artery in Sequential fashion. [facility]: 08/01/2004; 10/15/2011 Plan - JEREMI Mcpherson [...] 1 Week (EKG) 05/26/17 (keep appt with MANAGER MOLECULAR) Coding Level of Care Code Off vis,est,level 4 Diagnos es Dyspnea on exertion R06.09 Atherosclerosis of [place] coronary artery of [place] heart without angina pectoris I25.10 [place] vs. transplanted heart: [place] heart Essential hypertension I10 Hypertension type: essential hypertension Mixed hyperlipidemia E78.2 Hyperlipidemia type: mixed hyperlipidemia Paroxysmal atrial fibrillation I48.0 Atrial fibrillation type: paroxysmal Coding Level of Care Code O ff vis,est,level 4 Diagnoses Dyspnea on exertion R06.09 Atherosclerosis of [place] coronary artery of [place] heart without angina pectoris I25.10 [place] vs. transplanted heart: [place] heart Essential hy pertension I10 Hypertension type: [...] CARLOS EDUARDO Result: Comments: See Note; NOTES: [facility] [address] [place] [address] 12 Lead EKG performed by [facility] 05/26/17 1521 MR#: [id number] Acct: [id number] Name: FRITZ COMFORT Lane Rep #: [id number] : 1940 76 From: Annemarie BLOOD Attending Dr: Annemarie Parsons Status: DEP AMB Ordering Dr: Annemarie Parsons Date: 05/26/17 Location: [facility] Sex: F C Admitted: BMS/12 Lead EKG performed by [facility] ECG Report Interpretation Marked sinus Bradycardia -Poor R-wave progression - nonspecific -consider old anterior infarct. -Nonspecific ST depression -Nondiagnostic. ABNORMAL Electronically signed on 05/27/2017 at 08:40 by Jonel Rashid 05/27/17 0841 Date Annemarie BLOOD CC: Nia Uriostegui DO Date Dictated: 05/26/17 1521 Date Transcribed: 05/26/17 152 Wash Oil Pump Operator: BARBY Signed 16-May-2017 Office Visit Report Result: Comments: See Note; NOTES: [address] [address] OFFICE VISIT Date of Service: 05/16/17 MR#: [id number] Acct: [id number] Patient: COMFORT OLSON Rep #: [id number] : 1940 Provider: Jonel Rashid MD Age/Sex: 76/F Location: [facility] Status: Signed Intake Intake Visit Reasons: EKG [...] SON Y 11/11/16 [History Confirmed 05/14/17] Methscopolamine Sawyer 5 mg PO BID 11/11/16 [History Confirmed [...] [facility] Result: Comments: See Note; NOTES: [facility] [address] [place] [address] 12 Lead EKG performed by [facility] 05/16/171043 MR#: [id number] Acct: [id number] Name: COMFORT OLSON Rep #: [id number] : 1940 76 From: Annemarie BLOOD Attending Dr: Gay ROSAS,Garland Status: DEP AMB Ordering Dr: Annemarie Parsons Date: 05/16/17 Location: [facility] Sex: F C Adm itted: BMS/12 Lead EKG performed by [facility] Sinus Bradycardia -Poor R-wave progression -may be secondary to pulmonary isease consider old anterior infarct. Rightward P/QRS axis and rota tion possible pulmonary disease. ABNORMAL 05/16/171649 <Electronically signed by Annemarie BLOOD> Date Annemarie BLOOD CC: Nia Uriostegui DO Date Dictated: 05/16/171043 Date Transcribed: 05/16/171043 Wash Oil Pump Operator: BARBY Signed 16-May-2017 12 Lead EKG performed by [facility] Result: Comments: See Note; NOTES: [facility] [address] [place] [address] 12 Lead EKG performed by [facility] 05/16/17 1044 MR#: [id number] Acct: [id number] Name: COMFORT OLSON Rep #: [id number] : 1940 76 From: Annemarie BLOOD Attending Dr: Jonel Rashid MD Status: DEP AMB Ordering Dr: Annemarie Parsons Date: 05/16/17 Location: [facility] Sex: F C Adm itted: BMS/12 [...] Date Dictated: 05/16/17 1044 Date Transcribed: 05/16/171043 Wash Oil Pump Operator: BARBY Signed 14-May-2017 Cardiology Visit Report Result: Comments: See Note; NOTES: [facility] [address] [place] [address] OFFICE VISIT Date of Service: 05/14/17 MR#: [id number] Acct: [id number] Name: COMFORT OLSON Re p #: [id number] : 1940 Provider: Annemarie Parsons Age/Sex: 76/F Location: [facility] Status: Signed HPI HPI Details: COMFORT OLSON, is a 76 F who presents to the office today for an urgent appointm ent for increased shortness of breath. Patient does have a hospital of coronary artery disease with bypass surgery in 2004. She had an VILLAGRAN wcvw-mp-dhgt to second diagonal and to anterior descending [...] 5 in Intake Visit Reasons: per MS Headhunter Required: No Accompanied by: None Is patient [...] PO DAILY 11/11/16 [History Confirmed 05/14/17] Methscopolamine Sawyer 5 mg PO BID 11/11/16 [History Confirmed [...] PFSH Medical History Other secondary pulmonary hypertension ([place] rosemarie) Cardiomyopathy in diseases classified elsewhere (Chronic) Other cerebral infarction (Chronic) Paroxysmal atrial fibrillation (Chronic) Atrial enlargement, left (Chronic) Atherosclerotic heart disea se of [place] coronary artery without angina pectoris (Chronic) HTN [...] for an EKG 2. Ath erosclerosis of [place] coronary artery of [place] heart without angina pectoris I25.10 08/06/2004 CABG [...] Diagnoses Paroxysmal atrial fibrillation I48.0 Atherosclerosis of [place] coronary artery of [place] heart without angina pectoris I25.10 [place] vs. transplanted heart: [place] heart Essential hy pertension I10 Hypertension type: essential hypertension Mixed hyperlipidemia E78.2 Hyperlipidemia type: mixed hyperlipidemia Coding Level of Care Code Off vis,est,level 4 Diagnoses Paroxysmal atrial fibrillation I48.0 Atherosclerosis of [place] coronary artery of [place] heart without angina pectoris I25.10 [place] vs. transplanted heart: [place] heart Essential hypertension I10 Hypertension type: ess ential hypertension Mixed hyperlipidemia E78.2 Hyperlipidemia type: mixed hyperlipidemia 05/14/17 1718 <Electronically signed by Annemarie BLOOD> Date Annemarie BLOOD 05/14/17 1732<Electronically signed by Jonel Rashid MD> Cosigner Signature: Date (if applicable) Jonel Rashid MD CC: Nia Thakkarolinda MCFARLAND 14-May-2017 12 Lead EKG performed by BMS Result: Comments: See Note; NOTES: [facility] [address] [place] [address] 12 Lead EKG performed by [facility] 05/14/17 1104 MR#: [id number] Acct: [id number] Name: COMFORT OLSON Rep #: [id number] : 1940 76 From: Annemarie BLOOD Attending Dr: Annemarie Parsons Status: DEP AMB Ordering Dr: Annemarie Parsons Date: 05/14/17 Location: [facility] Sex: F C Admitted: BMS/12 Lead EKG performed by [facility] Marked sinus Bradycardia -Intraventricular conduction defect -consider left entricular hypertrophy. -Lateral infarct -age undetermined. - -abnormality -Possible Inferior and lateral ischemia. ABNORMAL 05/15/17 1041 <Electronically signed by Annemarie BLOOD> Date M farhan BLOOD CC: Nia Uriostegui DO Date Dictated: 05/14/171103 Date Transcribed: 05/14/171103 Wash Oil Pump Operator: BARBY Signed 14-May-2017 12 Lead EKG performed by BMS Result: Comments: See Note; NOTES: [facility] [address] [place] [address] 12 Lead EKG performed by [facility] 05/14/171103 MR#: [id number] Acct: [id number] Name: COMFORT OLSON Rep #: [id number] : 1940 76 From: Annemarie BLOOD Attending Dr: Annemarie Parsons Status: DEP AMB Ordering Dr: Annemarie Parsons Date: 05/14/17 Location: [facility] Sex: F C Admitted: [facility]/12 Lead [...] DO Date Dictated: 05/14/171103 Date Transcribed: 05/14/171103 Wash Oil Pump Operator: BARBY Signed 09-May-2017 Office Visit Report Result: Comments: See Note; NOTES: [facility] [address] [place] [address]. [place] [address] OFFICE VISIT Date of Service: 05/09/17 MR#: [id number] Acct: [id number] Patient: COMFORT OLSON Rep #: [id number] : 1940 Provider: Albert Kerr RN Age/Sex: 76/F Location: [facility] Status: Signed Intake Intake Visit Reasons: EKG 4 wk s/p per MANAGER MOLECULAR Allergies No Known Allergies Allergy (Verified 05/04 [...] PO DAILY 11/11/16 [History Confirmed 04/19/17] Methscopolamine Sawyer 5 mg PO BID 11/11/16 [History Confirmed [...] [facility] [place] Result: Comments: See Note; NOTES: [facility] [address] [place] [address] 12 Lead EKG performed by [facility] 05/09/17 1110 MR#: [id number] Acct: [id number] Name: COMFORT OLSON Rep #: [id number] : 1940 76 From: Jonel Rashid MD Attending Dr: Albert Kerr RN Status: DEP AMB Ordering Dr: Jonel Rashid MD Date: 05/09/17 Location: [facility] Sex: F C Admitted: [facility]/12 Lead EKG performed by [facility] Sinus Rhythm -Nonspecific QRS widening and anterior fascicular block. -Poor -wave progression -nonspecific -consider old anterior infarct. -Nonspecific T d epression -Nondiagnostic. ABNORMAL 05/09/17 1610 <Electronically signed by Jonel Rashid MD> Date Jonel Rashid MD CC: Nia Beth O Date Dictated: 05/09/171109 Date Transcribed: 05/09/171109 Wash Oil Pump Operator: CO Signed 09-May-2017 12 Lead EKG performed by BMS Result: Comments: See Note; NOTES: [facility] [address] [place] [address] 12 Lead EKG performed by [facility] 05/09/171109 MR#: [id number] Acct: [id number] Name: COMFORT OLSON Rep #: [id number] : 1940 76 From: Jonel Rashid MD Attending Dr: Albert Kerr RN Status: DEP AMB Ordering Dr: Jonel Rashid MD Date: 05/09/17 Location: [facility] Sex: F C Admitted: [facility]/12 Lead EKG performed by [facility] ECG Report Interpretation Sinus Rhythm -Nonspecific QRS widening and anterior fascicular block. -Poor R-wave progression -nonspec ific -consider old anterior infarct. -Nonspecific ST depression -Nondiagnostic. ABNORMAL Electronically signed on 05/17/2017 at 18:31 by Jonel Rashid 05/17/17 1834 Date Jonel Rashid MD CC: Nia Uriostegui DO Date Dictated: 05/09/171109 Date Transcribed: 05/09/171109 Wash Oil Pump Operator: CO Signed 06-May-2017 12 Lead Electrocardiogram Result: Comments: See Note; NOTES: [facility] Cardi[facility] Services [address] [place] [address] 12 Lead EKG 05/04/17 2237 MR#: [id number] Acct: [id number] Name: COMFORT OLSON Rep # : [id number] : 1940 76 From: Jonel Rashid MD [...] ECG Confirmed by JONEL RASHID MD ([id number]), story editor AMIRA CASTRO ([id number]) on 05/06/2017 1:42:52 PM Referred By: DONY Confirmed By:JONEL RASHID MD 05/06/17 1342 Date Jonel Rashid MD CC: Natalya Napoles MD; Nia Uriostegui Signed 06-May-2017 12 Lead Electrocardiogram Result: Comments: See Note; NOTES: [facility] [address] [place] [address] 12 Lead EKG 05/04/17 2045 MR#: [id number] Acct: [id number] Name: COMFORT OLSON Rep # : [id number] : 1940 76 From: Jonel Rashid MD [...] ECG Confirmed by JONEL RASHID MD ([id number]), story editor AMIRA CASTRO ([id number]) on 05/06/2017 1:08:29 PM Referred By: RICKY NAPOLES Confirmed By:JONEL RASHID MD 05/06/17 1308 Date Jonel Rashid MD CC: Natalya Napoles MD; Nia Uriostegui DO Signed 04-May-2017 Emergency Department Summary Result: Comments: See Note; NOTES: [facility] Medical Records Department [address] [facility] [place] [address] Emergency Department Summary 05/04/17 2259 MR#: [id number] Acct: [id number] Name: COMFORT OLSON Rep #: [id number] : 1940 76 From: Natalya Napoles MD [...] ED physician This note was generated with [employer] dictation software. It may contain incorre ct words, spelling, and punctuation that were not noted in review of the chart prior to signing ED Disposition - Plan for ED Patient: Chief Complaint: Palpitations Referrals: Nia Uriostegui, DO [[facility] Provider] - What to do if you have Problems For any increased pain, shortness of breath, bleeding, nausea or vomiting, chest pain, or any unexpected problems, contact your Primary Care Pro vider. Call Doctors Registry ([phone]) or report to the closest Emergency Room. Call 911 if necessary. 05/04/17 0261 <Electronically signed by Natalya Napoles MD> Date Natalya Napoles MD Cosigner Signature (If Indicated): Date CC: Nia Uriostegui 04-May-2017 Discharge Instruction Result: Comments: See Note; NOTES: [facility] Medical Records Department [address] [place] [address] Discharge Instruction 05/04/172339 MR#: [id number] Acct: [id number] Name: Liyah OLSON Rep #: [id number] : 1940 76 From: Natalya Napoles MD [...] your Primary Care Provider. Call [facility] ([phone]) or report to the closest Emergency Room. Call 911 if necessary. 05/04/172340 <Electronically signed by Natalya Napoles MD> Date Natalya mary MD Cosigner Signature (If Indicated): Date CC: Niashahriar Uriostegui 04-May-2017 Chest 1 View (Portable) Result: Comments: See Note; NOTES: [facility] Imaging Services [address] [place] [address] Chest 1 View (Portable) MR#: [id number] Acct: [id number] Name: COMFORT OLSON Rep #: [id number] : 1940 F 76 From: Rafael Perez MD PCP: Nia Uriostegui DO Status: REG ER Study: Chest 1 View (Portable) Date of Exam: 05/04/17 Exam# [id number] Ordering Dr: Natalya Napoles MD STUDY: X [...] CC: Natalya Napoles MD; Nia Uriostegui DO Wash Oil Pump Operator: Signed 19-Apr-2017 Emergency Department Summary Result: Comments: See Note; NOTES: [facility] Medical Records Department [address] [place] [address] Emergency Department Summary 04/19/17 1757 MR#: [id number] Acct: [id number] Name: COMFORT OLSON Rep #: [id number] : 1940 76 From: Deisi Ryan MD [...] with RVR This note was generated with [employer] software. It may contain incorrect words, spelling, [...] your Primary Care Provider. Call [facility] ([phone]) or report to the closest Emergency Room. Call 911 if necessary. 04/19/171930 <Electronically signed by Deisi moscoso MD> Date Deisi Ryan MD Cosigner Signature (If Indicated): Date CC: Nia Uriostegui DO 19-Apr-2017 Chest 1 View (Portable) Result: Comments: See Note; NOTES: [facility] Imaging Services [address] [place] [address] Chest 1 View (Portable) MR#: [id number] Acct: [id number] Name: COMFORT OLSON Rep #: [id number] : 1940 F 76 From: Thanh Ambriz MD PCP: Nia Uriostegui DO Status: PRE ER Study: Chest 1 View (Portable) Date of Exam: 04/19/17 Exam# [id number] Ordering Dr: Deisi Ryan MD STUDY: X- [...] CC: Deisi Ryan MD; Nia Uriostegui DO Wash Oil Pump Operator: Signed 14-Mar-2017 Cardiology Visit Report Result: Comments: See Note; NOTES: [facility] [address] [place] [address] OFFICE VISIT Date of Service: 03/14/17 MR#: [id number] Acct: [id number] Name: COMFORT OLSON p #: [id number] : 1940 Provider: JOSSELYN Lombardo Age/Sex: 76/F Location: [facility] Status: Signed HPI 3 M FU: Details: [...] less than 30% stenosis. 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 3. 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 transplanted heart: [place] heart Paroxysmal atrial fibrillation I48.0 Mixed hyperlipidemia E7 8.2 Hyperlipidemia type: mixed hyperlipidemia Coding Level of Care Code Off vis,est,level 3 Diagnoses Essential hypertension I10 Hypertension type: essential hypertension Cardiomyopathy in diseases c lassified elsewhere I43 Atherosclerosis of [place] coronary artery of [place] heart without angina pectoris I25.10 [place] vs. transplanted heart: [place] heart Paroxysmal atrial fibrillation I48.0 Mixed hy perlipidemia E78.2 Hyperlipidemia type: mixed hyperlipidemia 03/14/17 1154 <Electronically signed by Richard FREGOSOC> Date Richard Lombardo SENIOR STEREO COMPILER TEAM LEAD-C 03/14/17 1527<Electronically signed by Jonel Rashid MD> Cosigner Signature: Date (if applicable) Jonel Rashid MD CC: Nia Uriostegui DO 10-Mar-2017 Echo, Complete w/ Contrast Result: Comments: See Note; NOTES: [facility] [address] [place] [address] Echo Complete W/ Contrast 03/10/17 1008 MR#: [id number] Acct: [id number] Name: COMFORT JONES Rep #: [id number] : 1940 76 From: Jonel Rashid MD Attending Dr: Jonel Rashid MD Status: REG CLI Ordering Dr: Jonel Rashid MD Date: 03/10/17 Location: [facility] Sex: F C Admitted: Reason Fo [...] 03/10/17 1008 Date Transcr ibed: 03/10/17 1412 Wash Oil Pump Operator: Signed 13-Nov-2016 CTA Chest W/WO Contrast Result: Comments: See Note; NOTES: [facility] Imaging Services [address] [place] [address] CTA Chest W/WO Contrast MR#: [id number] Acct: [id number] Name: COMFORT OLSON Rep #: [id number] : 1940 F 75 From: Charly Almendarez DO PCP: Nia Uriostegui DO Status: REG ER Study: CTA Chest W/WO Contrast Date of Exam: 11/13/16 Exam# [id number] Ordering Dr: Emery Allen MD STUDY: CTA [...] CC: Emery Allen MD; Nia Uriostegui DO Wash Oil Pump Operator: Signed 11-Nov-2016 Chest 1 View (Portable) Result: Comments: See Note; NOTES: [facility] Imaging Services [address] [place] [address] Chest 1 View (Portable) MR#: [id number] Acct: [id number] Name: COMFORT OLSON Rep #: [id number] : 1940 F 75 From: oJrge Herman MD PCP: Nia Uriostegui DO Status: REG ER Study: Chest 1 View (Portable) Date of Exam: 11/11/16 Exam# [id number] Ordering Dr: Jignesh Tello MD STUDY: X-RA [...] CC: Nia vo ; Jignesh Tello MD Wash Oil Pump Operator: Signed 16-Jan-2016 Chest PA and Lateral Result: Comments: See Note; NOTES: [facility] Imaging Services [address] [place] [address] Verda 4d Chest PA and Lateral MR#: [id number] Acct: [id number] Name: COMFORT OLSON Rep #: [id number] : 1940 F 75 From: John Babcock MD PCP: Balbir Cramer Status: REG CLI Study: Chest PA and Lateral Date of Exam: 01/16/16 Exam# [id number] Ordering Dr: Balbir Cramer STUDY: X-RAY CHEST [...] John Babcock MD at 13:26 EST Tel [phone], Service support [phone], CC: Balbir Cramer Wash Oil Pump Operator: Signed 14-Dec-2014 Bilat Scrn Digital AND CAD Result: Comments: See Note; NOTES: [facility] Imaging Services [address] [place] [address] Verdana 4d Bilat Scrn Digital AND CAD MR#: [id number] Acct: [id number] Name: COMFORT OLSON Rep #: [id number] : 1940 F 74 From: John Babcock MD PCP: Maylin Melendez DO Status: REG CLI Study: Bilat Scrn Digital AND CAD Date of Exam: 12/14/14 Exam# [id number] Ordering D r: Maylin Melendez DO MAMMOGRAPHY [...] John Babcock MD at 14:05 EST Tel [phone], Service support [phone], CC: Maylin Melendez DO Wash Oil Pump Operator: Signed 14-Dec-2014 Carotid Duplex Ultrasound Result: Comments: See Note; NOTES: [facility] [address] [place] [address] Carotid Duplex Ultrasound 12/12/14 1007 MR#: [id number] Acct: [id number] Name: COMFORT OLSON Rep #: [id number] : 1940 74 From: Darian Anderson MD Attending Dr: Maylin Melendez DO Status: REG CLI Ordering Dr: Maylin Melendez DO Date: 12/12/14 Location: [facility] Sex: F C Admi tted: Rt. [...] the left vertebral artery. Procedure Carotid Duplex 28790. Exam performed in department. Interpreta tion Summary Mild (<50%) stenosis right extracranial internal carotid. Mild (<50%) stenosis left extracranial internal carotid. Flow within the vertebral arteries is antegrade bilater ally. Ordering Physician: Maylin Melendez Performed By: aSnaz Sheth RVT Electronically si gned by: MD Darian Anderson on 12/14/2014 07:37 AM 12/14/14 0737 Date Darian Anderson MD CC: Maylin Melendez DO Date Dictated: 12/12/14 1007 Date Transcribed: 12/14/14736 Wash Oil Pump Operator: Signed 25-Apr-2014 Nuclear Stress Test - Chemical Result: Comments: See Note; NOTES: [facility] Imaging Services [address] [place] [address] Nuclear Medicine Report MR#: [id number] Acct: [id number] Name: COMFORT OLSON Rep #: [id number] : 1940 F 73 From: Jonel Rashid MD PCP: Maylin Melendez DO Status: REG CLI Study: Nuclear Stress Test - Chemical Date of Exam: 04/25/14 Exam# [id number] Ordering Dr: Jonel Rashid MD P HARMACOLOGIC [...] CC: Jonel Rashid MD; Maylin Melendez DO Wash Oil Pump Operator: CALIX Signed 31-Jan-2014 Spirometry (04708) Comments: Moderate restriction similar to previous Result: 14-Jan-2014 Chest PA and Lateral Result: Comments: See Note; NOTES: [facility] Imaging Services [address] [place] [address] Radiology Report MR#: [id number] Acct: [id number] Name: COMFORT OLSON Rep #: [id number] : 1940 F 73 From: John Babcock MD PCP: Maylin Melendez DO Status: REG CLI Study: Chest PA and Lateral Date of Exam: 01/14/14 Exam# [id number] Ordering Dr: Sherrie Amor STUDY: X-RAY CH [...] John Babcock MD at 14:58 EST Tel [phone], Service support [phone], RAD/Chest PA and Lateral IMPRESSION: Mild increased markings at the lung bases suggestive of linear atelectasis. Electronica lly Signed: John Babcock MD at 14:58 EST Tel [phone], Service support [phone], CC: Sherrie Amor; Maylin Melendez DO Wash Oil Pump Operator: Signed 07-Sep-2013 Knee 4 or More Views Result: Comments: See Note; NOTES: [facility] Imaging Services [address] [place] [address] Radiology Report MR#: [id number] Acct: [id number] Name: COMFORT OLSON Rep #: [id number] : 1940 F 72 From: Yusuf Lopes PCP: Maylin Melendez DO Status: REG CLI Study: Knee 4 or More Views Date of Exam: 09/07/13 Exam# [id number] Ordering Dr: Maylin Melendez DO STUDY: X-RAY [...] Yusuf Lopes MD at 4:00 EDT Tel [phone] , Service support [phone] , CC: Maylin Melendez DO Wash Oil Pump Operator: Signed 22-Aug-2013 Carotid Duplex Ultrasound Result: Comments: See Note; NOTES: [facility] [address] [place] [address] Carotid Duplex Ultrasound 08/20/13 0945 MR#: [id number] Acct: [id number] Nam e: COMFORT OLSON Rep #: [id number] : 1940 72 From: Darian Anderson MD [...] the left vertebral artery. Procedure Carotid Duplex 53996. Exam performed in [facility] ent. Interpretation Summary Mild (<50%) stenosis right extracranial internal carotid. Mild (<50%) stenosis left extracranial internal carotid. Flow within the vertebral arteries is antegrade bilaterally. Ordering Physician: Maylin Melendez Performed By: Sanaz Sheth RVT : Maylin Melendez DO Date Dictated: 08/20/13 0945 Date Transcribed: 08/22/13 0848 Wash Oil Pump Operator: Signed 09-Jul-2013 Chest PA and Lateral Result: Comments: See Note; NOTES: [facility] [address] [place] [address] Radiology Report MR#: [id number] Acct: [id number] Name: COMFORT OLSON Rep #: [id number] : 1940 F 72 From: Jermaine Khan DO PCP: Maylin Melendez DO Status: REG CLI Study: Chest PA and Lateral Date of Exam: 07/09/13 Exam# [id number] Ordering Dr: Sherrie Amor STUDY: X-RAY CHEST [...] Jermaine Khan DO at 22:50 EDT Tel [phone] , Service support [phone], CC: Sherrie Amor; Maylin Melendez DO Wash Oil Pump Operator: Signed 08-Jan-2013 PT Discharge Summary Result: Comments: See Note; NOTES: [facility] Physical Therapy [facility] [address] [place] [address]. [address] [place] [address] Fax REHABILITATION SERVICES DISCHARGE SUMMARY MR#: [id number] Acct: [id number] Name: COMFORT OLSON Rep #: [id number] : 1940 72 From: Farrukh Hull Referring [...] has. Farrukh Hull, PT T: NTS JOB: [id number] <Electronically signed by Farrukh Hull > 01/08/13 0648 CC: * Signed 18-Dec-2012 Inital Evaluation - PT Result: Comments: See Note; NOTES: [facility] [address] [facility] [place] [address] Fax REHABILITATION SERVICES INITIAL EVALUATION MR#: [id number] Acct: [id number] Name: COMFORT OLSON Rep #: [id number] : 1940 72 From: Farrukh Hull Referring Dr.: Maylin Melendez DO Status: REG RCR Insurance: MEDICARE PAR T A B Eval Date: RN CHARGE BENEFIT PLAN DATE OF SERVICE: 12/18/2012 PHYSICIAN: [...] test. No obvious nystagmus. Right- sided Hallpike [place] test is positive for dizziness of approximately [...] therapy. Farrukh Hull, PT T: NTS JOB: [id number] <Electronically signed by Farrukh Hull > 12/18/12 1151 CC: Signed For Medicare only, by signing this I certify the plan of care. 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 criteria.Please note revised GLUCOSE reference range hytdejsia34/02/2018. 55-Eiu-87354:55 CBC W/Diff, Automated Comments: [facility] [address] [place], [place], [address] Absolute Lymph 2.08 {X10_3/ul} (Normal) Range: 0.83-4.51 [...] 4.2-5.4 WBC 8.7 K/mm3 (Normal) Range: 4.4-11.0 21-Rhp-22690:55 Troponin-I Comments: [facility] [address] [place], [place], [address] TROPONIN-I < 0.015 ng/mL (Normal) Comments: TROPONIN-I EXPECTED VALUES <0.045 Negative 0.045 - 0.590 Consistent with Cardiac Damage > OR = 0.600 Critical Value Not every elevated troponin is indicative of [place]. T hesevalues should be used with clinical judgement in examiningthe patient's clinical picture for diagnosis. To establisha diagnosis of [place] versus myocardial injury, there must be ademonstrated rise and/ or fall in the troponin values, inaddition to ischemic symptoms, EKG changes, new regionalwall motion abnormality, and/or angiographical evidence. PLEASE NOTE: REFERENCE RANGES EDITED 17:05 Basic Metabolic Profile (BMP) Comments: [facility] [address] [place], [place], [address] GAP 8 (Normal) Range: 5-15 CO2 28.0 [...] A.D.A. criteria.Please note revised GLUCOSE reference range rkqiqtysj16/02/2018. :05 CBC W/Diff, Automated Comments: [facility] [address] [place], [place], [address] Absolute Lymph 2.24 {X10_3/ul} (Normal) Range: 0.83-4.51 [...] K/mm3 (Normal) Range: 4.4-11.0 :05 Troponin-I Comments: [facility] [address] [facility] [place], [place], [address] TROPONIN-I 0.020 ng/mL (Normal) Comments: TROPONIN-I EXPECTED VALUES <0.045 Negative 0.045 - 0.590 Consistent with Cardiac Damage > OR = 0.600 Critical Value Not every elevated troponin is indicative of [place]. T hesevalues should be used with clinical judgement in examiningthe patient's clinical picture for diagnosis. To establisha diagnosis of [place] versus myocardial injury, there must be ademonstrated rise and/ or fall in the troponin values, inaddition to ischemic symptoms, EKG changes, new regionalwall motion abnormality, and/or angiographical evidence. PLEASE NOTE: REFERENCE RANGES EDITED 06/23/1727-Aug-201701-Dke-352307:18 HgA1C , Office (26304) HgA1C , Office 7.6 % (Abnormal) Range: 4.6 - 7.1 :18 Blood Glucose , Office (65475) Blood Glucose , Office 142 (Normal) :51 Basic Metabolic Profile (BMP) Comments: [facility] [address] [place], [place], [address] GAP 9 (Normal) Range: 5-15 CO2 25.0 [...] A.D.A. criteria.Please note revised GLUCOSE reference range tdpwyfyll77/02/2018. :51 CBC W/Diff, Automated Comments: [facility] [address] [place], [place], [address] Absolute Lymph 2.43 {X10_3/ul} (Normal) Range: 0.83-4.51 [...] 4.2-5.4 WBC 9.6 K/mm3 (Normal) Range: 4.4-11.0 94-Tpp-85739:51 Troponin-I Comments: [facility] [address] [place], [address] TROPONIN-I < 0.015 ng/mL (Normal) Comments: TROPONIN-I EXPECTED VALUES <0.045 Negative 0.045 - 0.590 Consistent with Cardiac Damage > OR = 0.600 Critical Value Not every elevated troponin is indicative of [place]. T hesevalues should be used with clinical judgement in examiningthe patient's clinical picture for diagnosis. To establisha diagnosis of [place] versus myocardial injury, there must be ademonstrated rise and/ or fall in the troponin values, inaddition to ischemic symptoms, EKG changes, new regionalwall motion abnormality, and/or angiographical evidence. PLEASE NOTE: REFERENCE RANGES EDITED 06/23/1728-May-201733-Jbw-279365:47 CALCIFEDIOL (19558) Comments: PATIENT NOT FASTINGPERFORMED BY: [facility]CoOver[facility] CenterTwifra1119 [facility] [id number] Vitamin D, 25-Hydroxy 20.2 ng/mL (Abnormal) Range: 30.0-100.0 Comments: Vitamin D deficiency has been defined by the [place] and an Endocrine Society practice guideline as alevel of serum 25-OH vitamin D less than 20 ng/mL (1,2).The Endocrine Society went on to further define vitamin Dinsufficiency as a level between 21 and 29 ng/mL (2).1. IOM ([place] [employer]). 2010. Dietary reference intakes for calcium and D. [place]: The National Academies Press.2. Bobo MF, Estrellita STOCKTNO, Maddi CALIX, et al. Evaluation, treatment, and prevention of vitamin D deficiency: an Endocrine Society clinical practice guideline. JCEM. 2010; 96(7):1911-30. 44-Mul-030761:47 VITAMIN B-12 (CYANOCOBALAMIN) Comments: PATIENT NOT FASTINGPERFORMED BY: [facility]CoOver[facility] CenterOdpekm0107 [facility] [id number] (76490) Vitamin B12 311 pg/mL (Normal) Range: 232-1245 90-Ypu-167104:26 HgA1C , Office (16038) HgA1C , Office 7.3 % (Abnormal) Range: 4.6 - 7.1 31-Yyn-674632:26 Blood Glucose , Office (60404) Blood Glucose , Office 136 (Normal) 04-Ctx-166359:56 Basic Metabolic Profile (BMP) Comments: 'TROP' Serial specimen #1, #2, #3, or #4: 1[facility] [address] [place], [address] GAP 11 (Normal) Range: 5-15 CO2 27.0 [...] A.D.A. criteria.Please note revised GLUCOSE reference range clmpiiqju29/02/2018. 68-Egk-939185:56 CBC W/Diff, Automated Comments: [facility] [address] [place], [place], [address] Absolute Lymph 3.30 {X10_3/ul} (Normal) Range: 0.83-4.51 [...] 4.2-5.4 WBC 9.3 K/mm3 (Normal) Range: 4.4-11.0 30-Ntw-353020:56 Troponin-I Comments: 'TROP' Serial specimen #1, #2, #3, or #4: [address] [place] [address] R[address] [place], [place], [id number] TROPONIN-I < 0.02 ng/mL (Normal) Comments: TROPONIN-I EXPECTED VALUES <0.05 NEGATIVE 0.06 - 0.59 AT RISK OF [place] > OR = 0.60 SUGGEST [place] 96-Sdn-009570:33 Basic Metabolic Profile (BMP) Comments: 'TROP' Serial specimen #1, #2, #3, or #4: [address] [place] [address] [place], [place], [address] GAP 10 (Normal) Range: 5-15 CO2 25.0 [...] A.D.A. criteria.Please note revised GLUCOSE reference range lubdyitpl83/02/2018. 94-Trh-044735:33 CBC W/Diff, Automated Comments: [facility] Cxalmkermh[address] [place], [place], [address] Absolute Lymph 3.48 {X10_3/ul} (Normal) Range: 0.83-4.51 [...] 4.2-5.4 WBC 10.4 K/mm3 (Normal) Range: 4.4-11.0 49-Soo-070000:33 Troponin-I Comments: 'TROP' Serial specimen #1, #2, #3, or #4: 1[facility] [address] [place], [place], [address] TROPONIN-I 0.14 ng/mL (Abnormal) Comments: TROPONIN-I EXPECTED VALUES <0.05 NEGATIVE 0.06 - 0.59 AT RISK OF [place] > OR = 0.60 SUGGEST [place] 1-Tba-468559:16 HgA1C , Office (14691) HgA1C , Office 7.9 % (Abnormal) Range: 4.6 - 7.1 7-Hpj-240721:15 Blood Glucose , Office (02499) Blood Glucose , Office 166 (Normal) 1-Amv-236955:25 Basic Metabolic Profile (BMP) Comments: Order Date: 12/13/16Order Info: [id number] - *BMPComments: Reason:[facility] Notifmyjli[address] [place], [place], [address] GAP 9 (Normal) Range: 5-15 CO2 29.0 [...] 200 mg/dLsuggests DIABETES MELLITUS per A.D.A. criteria. 25-Uzu-238257:27 Basic Metabolic Profile (BMP) Comments: Order Date: 11/19/16Order Info: [id number] - *BMPComments: Reason:[facility] Yvjwmdnlpo[address] [place], [place], [address] GAP 8 (Normal) Range: 5-15 CO2 27.0 [...] 200 mg/dLsuggests DIABETES MELLITUS per A.D.A. criteria. 56-Qwr-289307:27 Partial Thromboplast Time Comments: Order Date: 11/19/16Order Info: [id number] - *PT/INROrder Info: [id number] - *PTT-[facility]romboplast[facility]WB[facility] Kogrzwpfhu[address] [place], [place], [address] PTT 29.4 s (Normal) Range: 24.1-36.2 :27 Prothrombin Time w/INR Comments: Order Date: 11/19/16Order Info: [id number] - *PT/INROrder Info: [id number] - *PTT-Partial Thromboplastin TimeWBarnesville Hospital Fklhgsiewz[address] [place], [place], [address](591) INR 1.1 (Normal) PROTIME 13.4 s (Normal) Range: 11.7-14.9 :05 Basic Metabolic Profile (BMP) Comments: 'TROP' Serial specimen #1, #2, #3, or #4: 1[facility] [address]owf[address] [place], [place], [address] GAP 10 (Normal) Range: 5-15 CO2 25.0 [...] A.D.A. criteria. :05 BNP,B-Type NATRIURETIC PEPTIDE Comments: [facility] Wilkewcghe[address] [facility] [place], [place], [address] B-TYPE ANDREW PEP 316.0 pg/mL (Abnormal) Range: 0-100 :05 CBC W/Diff, Automated Comments: [facility] Xwbzaulsop75[address] [facility] [place], [place], [address] Absolute Lymph 1.26 {X10_3/ul} (Normal) Range: 0.83-4.51 [...] Serial specimen #1, #2, #3, or #4: [address] [place] [address] Gzxd[address]bsx[address] [place], [address] TROPONIN-I 0.15 ng/mL (Abnormal) Comments: TROPONIN-I EXPECTED VALUES <0.05 NEGATIVE 0.06 - 0.59 AT RISK OF [place] > OR = 0.60 SUGGEST [place] 1-Dpr-070351:10 Basic Metabolic Profile (BMP) Comments: 'TROP' Serial specimen #1, #2, #3, or #4: [address] [place] [address] [address] [place], [address] GAP 13 (Normal) Range: 5-15 [...] A.D.A. criteria. :10 CBC W/Diff, Automated Comments: [facility] T[address] [place], [address] Absolute Lymph 2.88 {X10_3/ul} (Normal) [...] Serial specimen #1, #2, #3, or #4: 1[facility] V[address]fshmcic[address] [place], [address] TSH 1.29 {uIU/mL} (Normal) Range: 0.358-3.74 :10 Troponin-I Comments: 'TROP' Serial specimen #1, #2, #3, or #4: 1[facility] [address]cmejzwi68[address] [place], [address] TROPONIN-I < 0.02 ng/mL (Normal) Comments: TROPONIN-I EXPECTED VALUES <0.05 NEGATIVE 0.06 - 0.59 AT RISK OF [place] > OR = 0.60 SUGGEST [place] :58 HgA1C , Office (45592) HgA1C , Office 7.6 % (Abnormal) Range: 4.6 - 7.1 :58 Blood Glucose , Office (55104) Blood Glucose , Office 159 (Normal) :50 CBC W/Diff, Automated Comments: [facility] [address]uv[address] [place], [address] Absolute Lymph 1.46 {X10_3/ul} (Normal) [...] 4.2-5.4 WBC 7.3 K/mm3 (Normal) Range: 4.4-11.0 59-Gpv-674625:50 CCP IgG Antibodies Comments: [facility] (refer to report for specific site)refer to report for address and phone number ANTI-CCP 801604 4 {units} (Normal) Range: 0-19 Comments: Negative <20 Weak positive 20 - 39 Moderate positive 40 - 59 Strong positive >59 25-Kcb-261642:50 Comprehensive Metabolic Profil Comments: [facility] [address] [place], [address] GAP 9 (Normal) Range: 5-15 CO2 26.0 [...] 126 mg/dLsuggests DIABETES MELLITUS per A.D.A. criteria. 61-Ozz-579094:50 CRP Comments: [facility] T[address]xlickco[address] [facility] [place], [place], [address] C-REACTIVE PROT 8.89 mg/L (Abnormal) Range: 0.0-3.0 Comments: C-Reactive Protein (CRP) provides useful information for thediagnosis, therapy and monitoring of inflammatory processesand associated diseases. For the evaluation of Relative Riskfor Cardiovascular Dise ase, a High Sensitivity CRP (HSCRP)should be ordered. 76-Plf-580158:50 Erythrocyte Sed Rate Comments: [facility] L[address]oultups[address] [facility] [place], [place], [address] SED RATE 27 mm/h (Normal) Range: 0-30 70-Lmp-549564:50 Hep B Surface Antibodies Comments: [facility] (refer to report for specific site)refer to report for address and phone number Hep B Booker AB Non Reactive (Normal) Comments: Non Reactive: Inconsistent with immunity, less than 10 mIU/mL Reactive: Consistent with immunity, greater than 9.9 mIU/ mL 19-Rvi-329588:50 Hepatitis B Surface Ag Comments: [facility] (refer to report for specific site)refer to report for address and phone number HB SURF AG Negative (Normal) Comments: Performed at: CB - [facility] [address] [id number] Director: Christopher Sullivan PhD, Phone: [phone] at: - [facility] [id number] Director: Loco Ivey MD, Phone: [phone] 84-Jla-234587:50 Hepatitis C Antibodies Comments: [facility] (refer to report for specific site)refer to report for address and phone number HEP C AB <0.1 {s/co_ratio} (Normal) Range: 0.0-0.9 Comments: Negative: < 0.8 Indeterminate: 0.8 - 0.9 Positive: > 0.9 The CDC recommends that a positive HCV antibody result be followed up with a HCV Nucleic Acid Amplification test (454591). :50 Rheumatoid Factor Comments: [facility] [address] [place], [address] RHEUMATOID FAC < 10.0 {IU/mL} (Normal) :50 Uric Acid Comments: [facility] [address]jvawndmw[address] [facility] [place], [address] URIC 7.1 mg/dL (Abnormal) Range: 2.6-6.0 Comments: The drugs N-Acetylcysteine and Metamizole may falselydepress this assay. :03 Unable to Void SPRCS (Normal) Comments: PATIENT WAS FASTINGPERFORMED BY: [facility] [id number] Comments: The patient was not able to render a urine sample and has beeninstructed to return for a urine collection at their earliestconvenience. The urine testing that you have requested hasbeen deleted from th is report. When the patient returns andprovides a urine specimen, the urine testing will be performedand separately reported. :03 VITAMIN B-12 (CYANOCOBALAMIN) Comments: PATIENT WAS FASTINGPERFORMED BY: Xipin70 [facility] [id number] (79635) Vitamin B12 264 pg/mL (Normal) Range: 211-946 :03 METABOLIC PANEL, COMPREHENSIVE Comments: PATIENT WAS FASTINGPERFORMED BY: [facility]ely [facility] [id number] (39047) ALT (SGPT) 7 [iU]/L (Normal) Range: 0-32 [...] mg/dL (Abnormal) Range: 65-99 :03 LIPID PANEL (99981) Comments: PATIENT WAS FASTINGPERFORMED BY: [facility] [id number] VLDL Cholesterol Jyoti VLDLCH mg/dL (Normal) Range: 5-40 Comments: The calculation for the VLDL cholesterol is not valid whentriglyceride level is >400 mg/dL.Triglyceride result indicated is too high for an accurate LDLcholesterol estimation. HDL Cholesterol 26 mg/dL (Abnormal) Triglycerides 542 mg/dL (Abnormal) Range: 0-149 Cholesterol, Total 183 mg/dL (Normal) Range: 100-199 :03 CBC W/AUTO DIFF WBC (71177) Comments: PATIENT WAS FASTINGPERFORMED BY: Xipin70 [facility] [id number] Immature Grans (Abs) 0.0 {x10E3/uL} (Normal) Range: [...] 3.77-5.28 WBC 8.1 {x10E3/uL} (Normal) Range: 3.4-10.8 75-Fri-361823:48 HgA1C , Office (85921) HgA1C , Office 8.0 % (Abnormal) Range: 4.6 - 7.1 :48 Blood Glucose , Office (91091) Blood Glucose , Office 166 (Normal) 3-Knt-949992:06 CALCIFEDIOL (44634) Comments: PATIENT NOT FASTINGPERFORMED BY: [facility]CoOver[facility] CenterXuiuhf3481 [facility] [id number] Vitamin D, 25-Hydroxy 51.1 ng/mL (Normal) Range: 30.0-100.0 Comments: Vitamin D deficiency has been defined by the [place] [facility] and an Endocrine Society practice guideline as alevel of serum 25-OH vitamin D less than 20 ng/mL (1,2).The Endocrine Society went on to further define vitamin Dinsufficiency as a level between 21 and 29 ng/mL (2).1. IOM ([place] [employer]). 2010. Dietary reference intakes for calcium and D. [place]: The National Academies Press.2. Bobo MF, Estrellita STOCKTON, Maddi CALIX, et al. Evaluation, treatment, and prevention of vitamin D deficiency: an Endocrine Society clinical practice guideline. JCEM. 2010; 96(7):7981-30. 5-Swz-470018:06 CBC, PLATELETS & AUT DIFF Comments: PATIENT NOT FASTINGPERFORMED BY: [facility] Hvxkdk3103 [facility] [id number] (87483) Immature Grans (Abs) 0.0 {x10E3/uL} (Normal) Range: [...] (Normal) Range: 3.4-10.8 :36 HgA1C , Office (07304) HgA1C , Office 8.0 % (Abnormal) Range: 4.6 - 7.1 :36 Blood Glucose , Office (51914) Blood Glucose , Office 155 (Normal) :39 METABOLIC PANEL, COMPREHENSIVE Comments: PATIENT WAS FASTINGPERFORMED BY: [facility]CoOver[facility] CenterBrssfs7076 [facility] [id number] (39200) ALT (SGPT) 6 [iU]/L (Normal) Range: 0-32 [...] mg/dL (Abnormal) Range: 65-99 :39 LIPID PANEL (03669) Comments: PATIENT WAS FASTINGPERFORMED BY: [facility] CareOverlook Medical CenterQkilez0985 [facility] [id number] LDL/HDL Ratio 3.6 {ratio_units} (Abnormal) Range: 0.0-3.2 Comments: LDL/HDL Ratio Men Women 1/2 Avg.Risk 1.0 1.5 Av g.Risk 3.6 3.2 2X Avg.Risk 6.2 5.0 3X Avg.Risk 8.0 6.1 LDL Cholesterol Calc 104 mg/dL (Abnormal) Range: 0-99 VLDL Cholesterol Jyoti 72 mg/dL (Abnormal) Range: 5-40 HDL Cholesterol 29 mg/dL (Abnormal) Triglycerides 359 mg/dL (Abnormal) Range: 0-149 Cholesterol, Total 205 mg/dL (Abnormal) Range: 100-199 91-Vxw-435068:49 Blood Glucose , Office (78328) Blood Glucose , Office 159 (Normal) 44-Mki-316723:49 HgA1C , Office (80811) HgA1C , Office 8.1 % (Abnormal) Range: 4.6 - 7.1 97-Dew-109583:03 VITAMIN B-12 (CYANOCOBALAMIN) Comments: PATIENT WAS FASTINGPERFORMED BY: [facility]6370 [facility] [id number] (43253) Vitamin B12 319 pg/mL (Normal) Range: 211-946 23-Uhm-629386:03 LIPID PANEL (54013) Comments: PATIENT WAS FASTINGPERFORMED BY: [facility]6370 [facility] [id number] VLDL Cholesterol Jyoti VLDLCH mg/dL (Normal) Range: [...] Cholesterol, Total 192 mg/dL (Normal) Range: 100-199 68-Llz-832362:03 Vitamin D Hydroxy (51045) Comments: PATIENT WAS FASTINGPERFORMED BY: [facility] CareOverlook Medical CenterEfvoqj6885 [facility] [id number] Vitamin D, 25-Hydroxy 21.1 ng/mL (Abnormal) Range: 30.0-100.0 Comments: Vitamin D deficiency has been defined by the [place] [facility] and an Endocrine Society practice guideline as alevel of serum 25-OH vitamin D less than 20 ng/mL (1,2).The Endocrine Society went on to further define vitamin Dinsufficiency as a level between 21 and 29 ng/mL (2).1. IOM ([place] [employer]). 2010. Dietary reference intakes for calcium and D. [place]: The National Academies Press.2. Bobo MF, Estrellita STOCKTON, Maddi CALIX, et al. Evaluation, treatment, and prevention of vitamin D deficiency: an Endocrine Society clinical practice guideline. JCEM. 2010; 96(7): 1911-30.; ADDENDA: non-emergent till apt next week 58-Ngy-275708:03 MICROALBUMIN: CREATININE RATIO Comments: PATIENT WAS FASTINGPERFORMED BY: [facility] Wykibm6336 [facility] [id number] (93689) AND (45460) Microalb/Creat Ratio 26.1 {mg/g_creat} (Normal) Range: 0.0-30.0 Microalbumin, Urine 20.0 ug/mL (Normal) Creatinine, Urine 76.5 mg/dL (Normal) 56-Jrg-339395:03 CBC W/AUTO DIFF WBC Comments: PATIENT WAS FASTINGPERFORMED BY: [facility] CareOverlook Medical CenterPhfobk2604 [facility] [id number] Information: [id number] (70944) Immature Grans (Abs) 0.0 {x10E3/uL} (Normal) Range: [...] 3.77-5.28 WBC 8.1 {x10E3/uL} (Normal) Range: 3.4-10.8 25-Vso-112498:03 METABOLIC PANEL, COMPREHENSIVE Comments: PATIENT WAS FASTINGPERFORMED BY: [facility]CoOver[facility] CenterTwynfs6590 [facility] [id number] (31169) ALT (SGPT) 7 [iU]/L (Normal) Range: 0-32 [...] (Abnormal) Range: 65-99 :53 Vitamin D Hydroxy (83173) Comments: PATIENT WAS FASTINGPERFORMED BY: Itegria70 [facility] [id number] Vitamin D, 25-Hydroxy 25.5 ng/mL (Abnormal) Range: 30.0-100.0 Comments: Vitamin D deficiency has been defined by the [place] of[place]icine and an Endocrine Society practice guideline as alevel of serum 25-OH vitamin D less than 20 ng/mL (1,2).The Endocrine Society went on to further define vitamin Dinsufficiency as a level between 21 and 29 ng/mL (2).1. IOM ([place]). 2010. Dietary reference intakes for calcium and D. [place]: The National Academies Press.2. Bobo MF, Estrellita [place], Maddi CALIX, et al. Evaluation, treatment, and prevention of vitamin D deficiency: an Endocrine Society clinical practice guideline. JCEM. 2010; 96(7):1911-30. :53 LIPID PANEL (03181) Comments: PATIENT WAS FASTINGPERFORMED BY: [employer]6370 [facility] [id number] LDL/HDL Ratio 3.7 {ratio_units} (Abnormal) Range: 0.0-3.2 [...] PANEL, COMPREHENSIVE Comments: PATIENT WAS FASTINGPERFORMED BY: [facility]CoOver[facility] CenterPqfnrb1289 [facility] [id number] (40582) ALT (SGPT) 5 [iU]/L (Normal) Range: 0-32 [...] mg/dL (Abnormal) Range: 65-99 :34 HGB A1C (34500) Comments: PATIENT WAS FASTINGPERFORMED BY: [employer]6370 [facility] [place] [id number] Hemoglobin A1c 8.9 % (Abnormal) Range: 4.8-5.6 Comments: . Pre-diabetes: 5.7 - 6.4 Diabetes: >6.4 Glycemic control for adults with diabetes: <7.0 :11 VITAMIN B-12 (CYANOCOBALAMIN) Comments: B12lot:5200exp:06/26site:lt deltroute:EPIFANIOdose:chilo Camargo; PATIENT WAS FASTINGPERFORMED BY: [facility] Omsnec3844 [facility] [id number] (49659) Vitamin B12 301 pg/mL (Normal) Range: 211-946 :11 Vitamin D Hydroxy (33119) Comments: PATIENT WAS FASTINGPERFORMED BY: [facility] Gqrtvn7535 [facility] [id number] Vitamin D, 25-Hydroxy 20.3 ng/mL (Abnormal) Range: 30.0-100.0 Comments: Vitamin D deficiency has been defined by the [place] of[place]icine and an Endocrine Society practice guideline as alevel of serum 25-OH vitamin D less than 20 ng/mL (1,2).The Endocrine Society went on to further define vitamin Dinsufficiency as a level between 21 and 29 ng/mL (2).1. IOM ([place]). 2010. Dietary reference intakes for calcium and D. [place]: The National Academies Press.2. Bobo MF, Estrellita NC, Maddi CALIX, et al. Evaluation, treatment, and prevention of vitamin D deficiency: an Endocrine Society clinical practice guideline. JCEM. 2010; 96(7):1911-30. :11 METABOLIC PANEL, Comments: PATIENT WAS FASTINGPERFORMED BY: BELKYS [facility] Clbinh1156 [facility] [id number] Information: [id number] COMPREHENSIVE (72281) ALT (SGPT) 6 [iU]/L (Normal) Range: 0-32 [...] mg/dL (Abnormal) Range: 65-99 :11 LIPID PANEL (64769) Comments: PATIENT WAS FASTINGPERFORMED BY: [facility] Bvhtwp8457 [facility] [id number]; will review on 07/04 LDL/HDL Ratio 4.0 [...] mg/dL (Abnormal) Range: 100-199 :11 HGB A1C (84152) Comments: PATIENT WAS FASTINGPERFORMED BY: [facility] Ccgjaw9162 [facility] [id number] Hemoglobin A1c 8.5 % (Abnormal) Range: 4.8-5.6 Comments: . Pre-diabetes: 5.7 - 6.4 Diabetes: >6.4 Glycemic control for adults with diabetes: <7.0 :16 Vitamin D Hydroxy (73186) Comments: PATIENT WAS FASTINGPERFORMED BY: [facility] Vfqxab1736 [facility] [id number] Vitamin D, 25-Hydroxy 21.3 ng/mL (Abnormal) Range: 30.0-100.0 Comments: Vitamin D deficiency has been defined by the [place] [facility] and an Endocrine Society practice guideline as alevel of serum 25-OH vitamin D less than 20 ng/mL (1,2).The Endocrine Society went on to further define vitamin Dinsufficiency as a level between 21 and 29 ng/mL (2).1. IOM ([place]). 2010. Dietary reference intakes for calcium and D. [place]: The National Academies Press.2. Bobo MF, Estrellita STOCKTON, Maddi CALIX, et al. Evaluation, treatment, and prevention of vitamin D deficiency: an Endocrine Society clinical practice guideline. JCEM. 2010; 96(7):1911-30. :16 VITAMIN B-12 (CYANOCOBALAMIN) Comments: PATIENT WAS FASTINGPERFORMED BY: BELKYS [facility] CareGallup Indian Medical CenterUhxeec8261 [facility] [id number] (79243) Vitamin B12 283 pg/mL (Normal) Range: 211-946 :16 CBC W/AUTO DIFF WBC Comments: PATIENT WAS FASTINGPERFORMED BY: [facility] CareGallup Indian Medical CenterZeqczr4680 [facility] [id number] Information: [id number] (60831) Immature Grans (Abs) 0.0 {x10E3/uL} (Normal) Range: [...] {x10E3/uL} (Normal) Range: 3.4-10.8 :16 LIPID PANEL (45333) Comments: PATIENT WAS FASTINGPERFORMED BY: LabCoOverlook Medical CenterRldaju2466 [facility] [id number] VLDL Cholesterol Jyoti VLDLCH mg/dL (Normal) Range: [...] Cholesterol, Total 168 mg/dL (Normal) Range: 100-199 77-Rmo-920240:49 HGB A1C (10132) Comments: PATIENT NOT FASTINGPERFORMED BY: [facility] CareOverlook Medical CenterWtwodn0311 [facility] [id number] Information: [id number] Hemoglobin A1c 8.1 % (Abnormal) Range: 4.8-5.6 Comments: . Pre-diabetes: 5.7 - 6.4 Diabetes: >6.4 Glycemic control for adults with diabetes: <7.0 03-Dae-43788:30 VITAMIN B-12 (CYANOCOBALAMIN) Comments: PATIENT WAS FASTINGPERFORMED BY: [facility] CareOverlook Medical CenterMdbemb0784 [facility] [id number] (65721) Vitamin B12 325 pg/mL (Normal) Range: 211-946 19-Wpc-72234:30 CBC (AUTO) (09537) Comments: PATIENT WAS FASTINGPERFORMED BY: [facility] CareOverlook Medical CenterEvqldv3430 [facility] [id number] Platelets 309 {x10E3/uL} (Normal) Range: 150-379 RDW 14.8 % (Normal) Range: 12.3-15.4 MCHC 31.1 g/dL (Abnormal) Range: 31.5-35.7 MCH 25.6 pg (Abnormal) Range: 26.6-33.0 MCV 82 fL (Normal) Range: 79-97 Hematocrit 39.2 % (Normal) Range: 34.0-46.6 Hemoglobin 12.2 g/dL (Normal) Range: 11.1-15.9 RBC 4.77 {x10E6/uL} (Normal) Range: 3.77-5.28 WBC 10.9 {x10E3/uL} (Abnormal) Range: 3.4-10.8 :30 Vitamin D Hydroxy (60584) Comments: PATIENT WAS FASTINGPERFORMED BY: [facility] Iquozy0729 [facility] [id number] Vitamin D, 25-Hydroxy 19.9 ng/mL (Abnormal) Range: 30.0-100.0 Comments: Vitamin D deficiency has been defined by the [place] of[place]icine and an Endocrine Society practice guideline as alevel of serum 25-OH vitamin D less than 20 ng/mL (1,2).The Endocrine Society went on to further define vitamin Dinsufficiency as a level between 21 and 29 ng/mL (2).1. IOM ([place] [employer]). 2010. Dietary reference intakes for calcium and D. [place]: The National Academies Press.2. Bobo MF, Estrellita NC, Maddi CALIX, et al. Evaluation, treatment, and prevention of vitamin D deficiency: an Endocrine Society clinical practice guideline. JCEM. 2010; 96(7): 1911-30.; ADDENDA: non-emergent till tomorrows apt :30 LIPID PANEL (95135) Comments: PATIENT WAS FASTINGPERFORMED BY: [employer]6370 [facility] [id number] VLDL Cholesterol Jyoti VLDLCH mg/dL (Normal) Range: [...] CREATININE RATIO Comments: PATIENT WAS FASTINGPERFORMED BY: [facility] CareOverlook Medical CenterNwphds3341 [facility] [id number] (35660) AND (88714) Microalb/Creat Ratio 190.8 {mg/g_creat} (Abnormal) Range: 0.0-30.0 Microalbumin, Urine 66.6 ug/mL (Abnormal) Range: 0.0-17.0 Creatinine, Urine 34.9 mg/dL (Normal) Range: 15.0-278.0 :30 METABOLIC PANEL, Comments: PATIENT WAS FASTINGPERFORMED BY: [facility] [id number] Information: [id number] COMPREHENSIVE (60080) ALT (SGPT) 6 [iU]/L (Normal) Range: 0-32 [...] (Abnormal) Range: 65-99 :59 Vitamin D Hydroxy (99408) Comments: PATIENT NOT FASTINGPERFORMED BY: [place] [id number]; apt. -15 Vitamin D, 25-Hydroxy 21.4 ng/mL (Abnormal) Range: 30.0-100.0 Comments: Vitamin D deficiency has been defined by the [place] of[place]icine and an Endocrine Society practice guideline as alevel of serum 25-OH vitamin D less than 20 ng/mL (1,2).The Endocrine Society went on to further define vitamin Dinsufficiency as a level between 21 and 29 ng/mL (2).1. IOM ([place] [employer]). 2010. Dietary reference intakes for calcium and D. [place]: The National Academies Press.2. Bobo MF, Estrellita NC, Maddi CALIX, et al. Evaluation, treatment, and prevention of vitamin D deficiency: an Endocrine Society clinical practice guideline. JCEM. 2010; 96(7):1911-30. :59 LIPID PANEL (94633) Comments: PATIENT NOT FASTINGPERFORMED BY: [facility] Pjablj4662 [facility] [id number] VLDL Cholesterol Jyoti VLDLCH mg/dL (Normal) Range: [...] B-12 (CYANOCOBALAMIN) Comments: PATIENT NOT FASTINGPERFORMED BY: [employer] Jbuedq5571 [facility] [id number] ([id number]) Vitamin B12 500 pg/mL (Normal) Range: 211-946 :59 CBC W/AUTO DIFF WBC Comments: PATIENT NOT FASTINGPERFORMED BY: [facility] Oeexfz7852 [facility] [id number] Information: [id number] (82375) Immature Grans (Abs) 0.0 {x10E3/uL} (Normal) Range: [...] PANEL, COMPREHENSIVE Comments: PATIENT NOT FASTINGPERFORMED BY: LabCoOverlook Medical CenterEtqmse0029 [facility] [id number] (35864) ALT (SGPT) 6 [iU]/L (Normal) Range: 0-32 [...] Range: 65-99 :38 Blood Glucose , Office (81149) Blood Glucose , Office 198 (Normal) :38 HgA1C , Office (89894) HgA1C , Office 9.1 % (Abnormal) Range: 4.6 - 7.1 :40 Allergens, Zone 8 Comments: Test(s) 528964-U418-OmA Cockroach, [place]; 304804-S164-GsO [place] HeightsL[place]; 027302-J344-QoN Sweet Gumwere developed and had performance characteristicsdetermined by [employer]. These tests have not been c leared orapproved by the U.S. Food and Drug Administration. The FDAhas determined that such clearance or approval is notnecessary. These tests are used for clinical purposes.These should not be regarded as investigational or forresearch.Test performed at:[facility] [address] [place] [address] ; handled by jennifer VANG COMMENT Comment [...] NETTLE <0.10 kU/L (Normal) Comments: Performed at: [address] [id number] Director: Loco Ivey MD, Phone: [phone] SHEEP SORREL <0.10 kU/L (Normal) PIGWEED, ROUGH [...] (Normal) :40 Immunoglobulin E Comments: Test performed at:[facility] Sawgwcliar5865 [facility] [address] [place], [place] [id number] IMMUNO E 53 {IU/mL} (Normal) Range: 0-100 Comments: Performed at: [address] [id number] Director: Christopher Sullivan PhD, Phone: [phone]; ADDENDA: handled by jennifer 48-Wlv-224168:26 HgA1C , Office (06615) HgA1C , Office 9.6 % (Abnormal) Range: 4.6 - 7.1 9-Prp-344395:31 BNP,B-Type NATRIURETIC PEPTIDE Comments: Test performed at:[facility] Ruvjgarymp4536 [place] [address] B-TYPE ANDREW PEP 58.8 pg/mL (Normal) Range: 0-100 05-Xpo-913782:04 IRON BINDING CAPACITY (TIBC) Comments: PERFORMED BY: [address] [id number] (42574) Iron Saturation 11 % (Abnormal) Range: 15-55 Iron, Serum 47 ug/dL (Normal) Range: 35-155 UIBC 362 ug/dL (Normal) Range: 150-375 Iron Bind.Cap.(TIBC) 409 ug/dL (Normal) Range: 250-450 40-Ldx-058067:04 FERRITIN (79386) Comments: PERFORMED BY: [facility] [place] [address] [id number] Ferritin, Serum 32 ng/mL (Normal) Range: 15-150 69-Nof-372527:04 VITAMIN B-12 (CYANOCOBALAMIN) Comments: PERFORMED BY: [facility] [place] [address] [id number] (14172) Vitamin B12 304 pg/mL (Normal) Range: 211-946 73-Foi-033792:04 Vitamin D Hydroxy (75581) Comments: PERFORMED BY: [facility] Lgoagz0743 [facility] [id number] Vitamin D, 25-Hydroxy 17.5 ng/mL (Abnormal) Range: 30.0-100.0 Comments: Vitamin D deficiency has been defined by the [place] [facility]cine and an Endocrine Society practice guideline as alevel of serum 25-OH vitamin D less than 20 ng/mL (1,2).The Endocrine Society went on to further define vitamin Dinsufficiency as a level between 21 and 29 ng/mL (2).1. IOM ([place] of Medicine). 2010. Dietary reference intakes for calcium and D. [place]: The National Academies Press.2. Bobo MF, Estrellita STOCKTON, Maddi CALIX, et al. Evaluation, treatment, and prevention of vitamin D deficiency: an Endocrine Society clinical practice guideline. JCEM. 2010; 96(7):1911-30. 80-Bmr-402202:04 LIPID PANEL (84952) Comments: PERFORMED BY: [employer]6370 [facility] [id number] VLDL Cholesterol Jyoti VLDLCH mg/dL (Normal) Range: [...] Cholesterol, Total 166 mg/dL (Normal) Range: 100-199 33-Zxt-814676:04 CBC W/AUTO DIFF WBC (91123) Comments: PERFORMED BY: [facility] Zkpgrp0600 [facility] [id number] Immature Grans (Abs) 0.0 {x10E3/uL} (Normal) Range: [...] 3.77-5.28 WBC 7.3 {x10E3/uL} (Normal) Range: 3.4-10.8 03-Fpn-139549:04 METABOLIC PANEL, COMPREHENSIVE Comments: PERFORMED BY: [facility]6370 [facility] [id number] (78773) ALT (SGPT) 5 [iU]/L (Normal) Range: 0-32 [...] Glucose, Serum 279 mg/dL (Abnormal) Range: 65-99 28-Mfi-454866:18 HgA1C , Office (52241) HgA1C , Office 8.3 % (Abnormal) Range: 4.6 - 7.1 82-Kjm-237907:12 Rapid Flu (06797 x 2) Influenza A Ag negative (Normal) 81-Ldi-468015:43 BNTP (15559) Comments: PATIENT NOT FASTINGPERFORMED BY: LabCoOverlook Medical CenterKtbwcm7849 [facility] [id number] Information: [id number], [id number] B-Type Natriuretic Peptide 67.8 pg/mL (Normal) Range: 0.0-100.0 4-Psh-519600:12 CBCD ALC 1.70 {X10_3/ul} (Normal) Range: 0.83-4.51 [...] A.D.A. criteria. :14 Blood Glucose , Office (74173) Blood Glucose , Office 112 (Normal) :14 HgA1C , Office (26272) HgA1C , Office 7.3 % (Abnormal) Range: 4.6 - 7.1 29-Fdl-873402:45 WESTON Negative (Normal) Comments: Performed at: CB - [facility] [address] [id number] Director: Nick Cali PhD, Phone: [phone] 49-Pfc-906267:45 CBCD ALC 1.65 {X10_3/ul} (Normal) Range: 0.83-4.51 [...] - 59Strong positive >59Performed at: - [facility] [address] [id number] Director: Loco Ivey MD, Phone: [phone] 35-Lrv-201978:45 CMP GAP 4 (Abnormal) Range: 5-15 CO2 [...] 7-18 GLU 99 mg/dL (Normal) Range: 70-110 82-Zfs-489356:45 CRP < 2.90 mg/L (Normal) Range: 0.0-3.0 [...] ng/mL (>250 nmol/L) :46 Vitamin D Hydroxy (38797) Comments: PATIENT WAS FASTINGPERFORMED BY: [facility] Zzoblv7990 [facility] [id number] Vitamin D, 25-Hydroxy 22.7 ng/mL (Abnormal) Range: 30.0-100.0 Comments: Vitamin D deficiency has been defined by the [place] of[place]icine and an Endocrine Society practice guideline as alevel of serum 25-OH vitamin D less than 20 ng/mL (1,2).The Endocrine Society went on to further define vitamin Dinsufficiency as a level between 21 and 29 ng/mL (2).1. IOM ([place] Medicine). 2010. Dietary reference intakes for calcium and D. [place]: The National Academies Press.2. Bobo MF, Estrellita STOCKTON, Maddi CALIX, et al. Evaluation, treatment, and prevention of vitamin D deficiency: an Endocrine Society clinical practice guideline. JCEM. 2010; 96(7):1911-30. :46 MICROALBUMIN: CREATININE RATIO Comments: PATIENT WAS FASTINGPERFORMED BY: [facility] Ncpmav5270 [facility] [id number] (98165) AND (95992) Microalb/Creat Ratio 37.1 {mg/g_creat} (Abnormal) Range: 0.0-30.0 Microalbumin, Urine 29.9 ug/mL (Abnormal) Range: 0.0-17.0 Creatinine, Urine 80.5 mg/dL (Normal) Range: 15.0-278.0 :46 METABOLIC PANEL, COMPREHENSIVE Comments: PATIENT WAS FASTINGPERFORMED BY: [facility] Bchkml3760 [facility] [id number] (40825) ALT (SGPT) 7 [iU]/L (Normal) Range: 0-32 [...] mg/dL (Abnormal) Range: 65-99 :46 LIPID PANEL (29414) Comments: PATIENT WAS FASTINGPERFORMED BY: [employer]6370 [facility] [id number] LDL/HDL Ratio 2.1 {ratio_units} (Normal) Range: 0.0-3.2 [...] AUT DIFF Comments: PATIENT WAS FASTINGPERFORMED BY: Xipin70 [facility] [id number] Information: [id number] (41221) Hematology Comments: Note: (Normal) Comments: Verified by [...] 3.77-5.28 WBC 10.8 {x10E3/uL} (Normal) Range: 3.4-10.8 56-Vxz-16585:46 VITAMIN B-12 (CYANOCOBALAMIN) Comments: PATIENT WAS FASTINGPERFORMED BY: [facility]CoOverlook Medical CenterQdagwz5696 [facility] [id number] (57126) Vitamin B12 254 pg/mL (Normal) Range: 211-946 0-Wpy-608988:10 HgA1C , Office (25886) HgA1C , Office 6.8 % (Normal) Range: 4.6 - 7.1 0-Phf-683193:10 Blood Glucose , Office (66040) Blood Glucose , Office 146 (Normal) Comments: non-fasting :36 LIPID PANEL (95764) Comments: PATIENT WAS FASTINGPERFORMED BY: [facility]CoOverlook Medical CenterFcnhdm3716 [facility] [id number] VLDL Cholesterol Jyoti VLDLCH mg/dL (Normal) Range: [...] DIFF Comments: PATIENT WAS FASTINGPERFORMED BY: [facility] Hpbpvp6508 [facility] [id number] Information: [id number] (23981) Immature Grans (Abs) 0.0 {x10E3/uL} (Normal) Range: [...] PANEL, COMPREHENSIVE Comments: PATIENT WAS FASTINGPERFORMED BY: [facility]CoOver[facility] CenterWolmpi4116 [facility] [id number] (12053) ALT (SGPT) 6 [iU]/L (Normal) Range: 0-32 [...] (Abnormal) Range: 65-99 :36 Vitamin D Hydroxy (01638) Comments: PATIENT WAS FASTINGPERFORMED BY: [facility] Rrspdo4239 Ryan RoadDublin [place] [id number] Vitamin D, 25-Hydroxy 17.5 ng/mL (Abnormal) Range: 30.0-100.0 Comments: Vitamin D deficiency has been defined by the [place] [facility]cine and an Endocrine Society practice guideline as alevel of serum 25-OH vitamin D less than 20 ng/mL (1,2).The Endocrine Society went on to further define vitamin Dinsufficiency as a level between 21 and 29 ng/mL (2).1. IOM ([place] of Medicine). 2010. Dietary reference intakes for calcium and D. [place]: The National Academies Press.2. Bobo MF, Estrellita STOCKTON, Maddi CALIX, et al. Evaluation, treatment, and prevention of vitamin D deficiency: an Endocrine Society clinical practice guideline. JCEM. 2010; 96(7):1911-30. :36 VITAMIN B-12 (CYANOCOBALAMIN) Comments: PATIENT WAS FASTINGPERFORMED BY: [facility] Carerp Ozdspy3232 Ryan RoadDublin [place] [id number] (41927) Vitamin B12 264 pg/mL (Normal) Range: 211-946 :36 IRON (13352) Comments: PATIENT WAS FASTINGPERFORMED BY: [facility] Fisojl7309 Ryan RoadDublin [place] [id number] Iron, Serum 52 ug/dL (Normal) Range: 35-155 32-Plk-610619:54 HgA1C , Office (70014) HgA1C , Office 7.1 % (Normal) Range: 4.6 - 7.1 :09 VITAMIN B-12 (CYANOCOBALAMIN) Comments: PATIENT WAS FASTINGPERFORMED BY: [facility] Zpsyee9242 [facility] [id number] (44479) Vitamin B12 704 pg/mL (Normal) Range: 211-946 :09 Vitamin D Hydroxy (40741) Comments: PATIENT WAS FASTINGPERFORMED BY: [facility]6370 [facility] [id number] Vitamin D, 25-Hydroxy 21.8 ng/mL (Abnormal) Range: 30.0-100.0 Comments: Vitamin D deficiency has been defined by the [place] of[place]icine and an Endocrine Society practice guideline as alevel of serum 25-OH vitamin D less than 20 ng/mL (1,2).The Endocrine Society went on to further define vitamin Dinsufficiency as a level between 21 and 29 ng/mL (2).1. IOM ([place]). 2010. Dietary reference intakes for calcium and D. [place]: The National Academies Press.2. Bobo MF, Estrellita STOCKTON, Maddi CALIX, et al. Evaluation, treatment, and prevention of vitamin D deficiency: an Endocrine Society clinical practice guideline. JCEM. 2010; 96(7):1911-30. :09 MICROALBUMIN: CREATININE RATIO Comments: PATIENT WAS FASTINGPERFORMED BY: [facility] CareOverlook Medical CenterMjhkuo0630 [facility] [id number] (74549) AND (64209) Microalb/Creat Ratio 24.2 {mg/g_creat} (Normal) Range: 0.0-30.0 Microalbumin, Urine 37.1 ug/mL (Abnormal) Range: 0.0-17.0 Creatinine, Urine 153.6 mg/dL (Normal) Range: 15.0-278.0 :09 METABOLIC PANEL, COMPREHENSIVE Comments: PATIENT WAS FASTINGPERFORMED BY: [facility]oseUniversity [facility]6370 [facility] [id number] (59198) ALT (SGPT) 9 [iU]/L (Normal) Range: 0-32 [...] Glucose, Serum 150 mg/dL (Abnormal) Range: 65-99 12-Yht-60105:09 CBC WITH MANUAL DIFF Comments: PATIENT WAS FASTINGPERFORMED BY: LabCoOverlook Medical CenterWmopqy9262 [facility] [id number] Information: [id number] (14985) Immature Grans (Abs) 0.0 {x10E3/uL} (Normal) Range: [...] {x10E3/uL} (Normal) Range: 3.4-10.8 :09 LIPID PANEL (43210) Comments: PATIENT WAS FASTINGPERFORMED BY: [facility]CoOverlook Medical CenterAdtbit6044 [facility] [id number] VLDL Cholesterol Jyoti VLDLCH mg/dL (Normal) Range: [...] (Normal) Range: 100-199 :23 HgA1C , Office (12100) HgA1C , Office 7.2 % (Abnormal) Range: 4.6 - 7.1 73-Tpy-048445:08 FOOT MIN 3 VIEWS Radiology Report See [...] Babcock M.D.November 02, 2012 at 3:41:31 PM [id number] Signed GP/GP If you are the referring physician and would like to consult with theradiologist who provided this interpretation, please contact Imani Hayes at [phone]. If this radiologist is unavailable, youwill be directed to another radiologist to assist. If you are a patient with a question regarding this report, pleasecontactyour referring lisa frygerri directly. Professional Interpretation Provided By: [email or web address], Phone , These documents contain legally protected [...] return or destructionofthese documents. Dictated on 11/02/12 1758 by Emma Babcock MD on 11/02/121542 by ITS IMPORTSign by John Babcock MD on 11/02/12 1544 Sign by: John Babcock MD 43-Hjs-943467:33 MICROALBUMIN: CREATININE RATIO Comments: PATIENT WAS FASTINGPERFORMED BY: [facility] Rojlpg9944 [facility] [id number] (25105) AND (62774) Microalb/Creat Ratio 31.2 {mg/g_creat} (Abnormal) Range: 0.0-30.0 Microalbumin, Urine 44.7 ug/mL (Abnormal) Range: 0.0-17.0 Creatinine, Urine 143.3 mg/dL (Normal) Range: 15.0-278.0 98-Rka-224555:33 CBC WITH MANUAL DIFF Comments: PATIENT WAS FASTINGPERFORMED BY: [employer] Tlbfkz8686 [facility] [id number] Information: [id number] (66358) Immature Grans (Abs) 0.0 {x10E3/uL} (Normal) Range: [...] 3.77-5.28 WBC 6.9 {x10E3/uL} (Normal) Range: 3.4-10.8 66-Rzo-309281:33 METABOLIC PANEL, COMPREHENSIVE Comments: PATIENT WAS FASTINGPERFORMED BY: LabCoOverlook Medical CenterRktjsh1545 [facility] [id number] (73673) ALT (SGPT) 10 [iU]/L (Normal) Range: 0-32 [...] Glucose, Serum 158 mg/dL (Abnormal) Range: 65-99 42-Bgl-171541:33 VITAMIN B-12 (CYANOCOBALAMIN) Comments: PATIENT WAS FASTINGPERFORMED BY: Property MooseCoOverlook Medical CenterYzpgmh5865 [facility] [id number] (38069) Vitamin B12 >1999 pg/mL (Abnormal) Range: 211-946 60-Xro-481536:33 IRON BINDING CAPACITY (TIBC) Comments: PATIENT WAS FASTINGPERFORMED BY: LabBayer AGOverlook Medical CenterWphecw0850 [facility] [id number] (67805) Iron Saturation 16 % (Normal) Range: 15-55 Iron, Serum 59 ug/dL (Normal) Range: 35-155 UIBC 315 ug/dL (Normal) Range: 150-375 Iron Bind.Cap.(TIBC) 374 ug/dL (Normal) Range: 250-450 87-Xxv-917344:33 FERRITIN (62351) Comments: PATIENT WAS FASTINGPERFORMED BY: LabCoOverlook Medical CenterBvumhg4044 [facility] [id number] Ferritin, Serum 29 ng/mL (Normal) Range: 15-150 87-Cjh-840348:33 HEPATIC FUNCTION PANEL Comments: PATIENT WAS FASTINGPERFORMED BY: [facility] CareOverlook Medical CenterPpsagx5687 [facility] [id number] (60479) Bilirubin, Direct 0.12 mg/dL (Normal) Range: 0.00-0.40 40-Kkm-157392:33 LIPID PANEL (30468) Comments: PATIENT WAS FASTINGPERFORMED BY: LabCo Kfzqqh3384 [facility] [id number] VLDL Cholesterol Jyoti VLDLCH mg/dL (Normal) Range: [...] Cholesterol, Total 174 mg/dL (Normal) Range: 100-199 18-Eot-150837:33 Vitamin D Hydroxy (91444) Comments: PATIENT WAS FASTINGPERFORMED BY: LabCoOverlook Medical CenterQytoml8872 [place] [id number] Vitamin D, 25-Hydroxy 21.3 ng/mL (Abnormal) Range: 30.0-100.0 Comments: Vitamin D deficiency has been defined by the [place] of[place]icine and an Endocrine Society practice guideline as alevel of serum 25-OH vitamin D less than 20 ng/mL (1,2).The Endocrine Society went on to further define vitamin Dinsufficiency as a level between 21 and 29 ng/mL (2).1. IOM ([place]). 2010. Dietary reference intakes for calcium and D. [place]: The National AcademInfinium Metals Press.2. Bobo MF, Estrellita STOCKTON, Maddi CALIX, et al. Evaluation, treatment, and prevention of vitamin D deficiency: an Endocrine Society clinical practice guideline. JCEM. 2010; 96(7):1911-30. 87-Rln-753634:22 HgA1C , Office (73102) HgA1C , Office 6.8 % (Normal) Range: [...] Babcock M.D.August 18, 2012 at 3:19:26 PM [id number] Signed GP/GP If you are the referring physician and would like to consult with theradiologist who provided this interpretation, please contact Imani Hayes at [phone]. If this radiologist is unavailable, youwill be directed to another radiologist to assist. If you are a patient with a question regarding this report, pleasecontactyour referring physician directly. Professional Interpretation Provided By: [email or web address], Phone , These documents contain legally protected [...] 08/18/12 1522 Sign by: John Babcock MD 6-Lfy-317255:40 BILAT SCRN DIGITAL & CAD Radiology Report [...] Signed:John Babcock M.D.August 18 at 1:37:33 PM [id number] Signed GP/GP If you are the referring physician and would like to consult with theradiologist who provided this interpretation, please contact Sunil louis M.D. at [phone]. If this radiologist is unavailable, youwill be directed to another radiologist to assist. If you are a patient with a question regarding this report, pleasecontactyour referr ing physician directly. Professional Interpretation Provided By: [email or web address], Phone , These documents contain legally protected [...] 08/18/12 1400 Sign by: John Babcock MD 5-Rrw-081331:36 VERT FX ASSESS/LAT BONE DEN(H) Radiology Report [...] Babcock M.D.August 20, 2012 at 2:14:56 PM [id number] Signed GP/GP If you are the referring physician and would like to consult with theradiolo [facility] who provided this interpretation, please contact Imani Hayes at [phone]. If this radiologist is unavailable, youwill be directed to another radiologist to assist. If you are a clarice ent with a question regarding this report, pleasecontactyour referring physician directly. Professional Interpretation Provided By: [email or web address], Phone , These documents con tain legally [...] on 08/20/121416 Sign by: John Babcock MD 45-Nbw-57716:10 LIPID PANEL (71191) Comments: PATIENT WAS FASTINGPERFORMED BY: [facility]iTaleemUofL [facility] [id number] VLDL Cholesterol Jyoti VLDLCH mg/dL (Normal) Range: [...] Cholesterol, Total 183 mg/dL (Normal) Range: 100-199 14-Spw-27942:10 METABOLIC PANEL, COMPREHENSIVE Comments: PATIENT WAS FASTINGPERFORMED BY: [employer]ru6370 [facility] [id number] (18647) ALT (SGPT) 5 [iU]/L (Normal) Range: 0-32 [...] CAPACITY (TIBC) Comments: PATIENT WAS FASTINGPERFORMED BY: [employer]ru6370 [facility] [id number] (21601) Iron Saturation 15 % (Normal) Range: 15-55 Iron, Serum 53 ug/dL (Normal) Range: 35-155 UIBC 308 ug/dL (Normal) Range: 150-375 Iron Bind.Cap.(TIBC) 361 ug/dL (Normal) Range: 250-450 :10 FERRITIN (18390) Comments: PATIENT WAS FASTINGPERFORMED BY: [facility] [id number] Ferritin, Serum 25 ng/mL (Normal) Range: 15-150 88-Eib-50366:10 VITAMIN B-12 (CYANOCOBALAMIN) Comments: PATIENT WAS FASTINGPERFORMED BY: BELKYS LabCoOverlook Medical CenterJjlyxt8374 [facility] [id number] (09108) Vitamin B12 258 pg/mL (Normal) Range: 211-946 13-Xfa-70244:10 CBC WITH MANUAL DIFF Comments: PATIENT WAS FASTINGPERFORMED BY: BELKYS [facility] Fzjhfm8271 [facility] [id number] Information: ADD [id number] AND DRAW FEE 99 [phone] (52214) Immature Grans (Abs) 0.0 {x10E3/uL} (Normal) Range: [...] (Normal) Range: 4.0-10.5 :10 Vitamin D Hydroxy (43327) Comments: PATIENT WAS FASTINGPERFORMED BY: [facility] Dcprvf8097 [address] [facility] [place] [id number] Vitamin D, 25-Hydroxy 20.4 ng/mL (Abnormal) Range: 30.0-100.0 Comments: Vitamin D deficiency has been defined by the [place] of[place]icine and an Endocrine Society practice guideline as alevel of serum 25-OH vitamin D less than 20 ng/mL (1,2).The Endocrine Society went on to further define vitamin Dinsufficiency as a level between 21 and 29 ng/mL (2).1. IOM ([place]). 2010. Dietary reference intakes for calcium and D. [place]: The National Academies Press.2. Bobo MF, Estrellita STOCKTON, Maddi CALIX, et al. Evaluation, treatment, and prevention of vitamin D deficiency: an Endocrine Society clinical practice guideline. JCEM. 2010; 96(7):1911-30. 9-Oag-485759:08 IRON (75087) Comments: PATIENT WAS FASTINGPERFORMED BY: [facility] Twbsvn3950 [facility] [id number] Iron, Serum 58 ug/dL (Normal) Range: 35-155 0-Zhj-693895:08 FERRITIN (98646) Comments: PATIENT WAS FASTINGPERFORMED BY: [facility] Vlkovh1184 [facility]in [place] [id number] Ferritin, Serum 25 ng/mL (Normal) Range: 13-150 4-Aoo-075960:08 VITAMIN B-12 (CYANOCOBALAMIN) Comments: PATIENT WAS FASTINGPERFORMED BY: [facility] Bflmkf3860 [address] [facility]in [place] [id number] (59467) Vitamin B12 390 pg/mL (Normal) Range: 211-946 4-Dex-220815:08 Vitamin D Hydroxy (10901) Comments: PATIENT WAS FASTINGPERFORMED BY: LabUniversity [facility]6370 [facility] [id number] Vitamin D, 25-Hydroxy 25.3 ng/mL (Abnormal) Range: 30.0-100.0 Comments: Vitamin D deficiency has been defined by the [place] of[place]icine and an Endocrine Society practice guideline as alevel of serum 25-OH vitamin D less than 20 ng/mL (1,2).The Endocrine Society went on to further define vitamin Dinsufficiency as a level between 21 and 29 ng/mL (2).1. IOM ([place]). 2010. Dietary reference intakes for calcium and D. [place]: The National Academies Press.2. Bobo MF, Estrellita STOCKTON, Maddi CALIX, et al. Evaluation, treatment, and prevention of vitamin D deficiency: an Endocrine Society clinical practice guideline. JCEM. 2010; 96(7):1911-30. 8-Gyh-688755:08 METABOLIC PANEL, COMPREHENSIVE Comments: PATIENT WAS FASTINGPERFORMED BY: BELKYS LabCoOverlook Medical CenterHkscok4183 [facility] [id number] (93964) ALT (SGPT) 6 [iU]/L (Normal) Range: 0-32 [...] Glucose, Serum 124 mg/dL (Abnormal) Range: 65-99 4-Avi-165815:08 CBC WITH MANUAL DIFF Comments: PATIENT WAS FASTINGPERFORMED BY: [facility]University [facility]6370 [facility] [id number] Information: [id number] (26144) Immature Grans (Abs) 0.0 {x10E3/uL} (Normal) Range: [...] 3.77-5.28 WBC 8.2 {x10E3/uL} (Normal) Range: 4.0-10.5 7-Xnu-635704:08 LIPID PANEL (89453) Comments: PATIENT WAS FASTINGPERFORMED BY: [facility] Brewby1826 [facility] [id number] VLDL Cholesterol Jyoti VLDLCH mg/dL (Normal) Range: [...] (Normal) Range: 100-199 :56 HgA1C , Office (36251) HgA1C , Office 7.4 % (Abnormal) Range: 4.6 - 7.1 :56 Blood Glucose , Office (84177) Blood Glucose , Office 142 (Normal) 96-Uwe-710615:40 CBCMD RBCM NORM C+C {NORMAL} (Normal) EOS [...] 4.2-5.4 WBC 11.2 K/mm3 (Abnormal) Range: 4.4-11.0 38-Cgr-053919:40 CMP GAP 7 (Normal) Range: 5-15 CL [...] mg/dL suggests DIABETES MELLITUS per A.D.A. criteria. 02-Ejj-21204:04 CHEST WITH CONTRAST Radiology Report See Note [...] coronal and sagittal images were reformatted. [facility] prior [facility] dated February [...] Babcock M.D.November 07, 2011 at 1:33:21 PM [id number] Signed GP/GP If you ar e the referring physician and would like to consult with theradiologist who provided this interpretation, please contact Imani Hayes at [phone]. If this radiologist is unavailable, youw ill [...] 11/07/11 1340 Sign by: John Babcock MD 74-Snl-855259:41 Pathology Report Comments: PERFORMED BY: [facility] Vtrx53030 [facility] [id number] BY: LX [facility] Qlwloqa67748 [facility] [id number] Information: [id number] See MATER Comments: Material submitted: .SHAVE BIOPSY [...] HALVES ARE SUBMITTEDIN TWO CASSETTES, A1 AND A2.[facility] .067015 92-Dqo-589334:06 CBC WITH MANUAL DIFF Comments: PATIENT NOT FASTINGPERFORMED BY: BELKYS [facility] Hqbhim1738 [facility] [id number] Information: [id number] (20504) Immature Grans (Abs) 0.0 {x10E3/uL} (Normal) Range: [...] 3.77-5.28 WBC 7.9 {x10E3/uL} (Normal) Range: 4.0-10.5 38-Wkh-797136:06 LDH (LD) (LACTATE DEHYDROGENASE) Comments: PATIENT NOT FASTINGPERFORMED BY: [facility]Gall[facility] CenterOhpqcb2617 [facility] [id number] (23349) LDH 198 [iU]/L (Normal) Range: 0-214 85-Ytc-366540:06 IRON BINDING CAPACITY (TIBC) Comments: PATIENT NOT FASTINGPERFORMED BY: [facility] [id number] (89799) Iron Saturation 11 % (Abnormal) Range: 15-55 Iron, Serum 46 ug/dL (Normal) Range: 35-155 UIBC 389 ug/dL (Abnormal) Range: 150-375 Iron Bind.Cap.(TIBC) 435 ug/dL (Normal) Range: 250-450 08-Jdd-938134:06 FERRITIN (96581) Comments: PATIENT NOT FASTINGPERFORMED BY: [facility]6370 [facility] [id number] Ferritin, Serum 12 ng/mL (Abnormal) Range: 13-150 2-Hpl-771614:03 HgA1C , Office (39924) HgA1C , Office 7.1 % (Normal) Range: 4.6 - 7.1 :34 CBC WITH MANUAL DIFF (25195) Comments: PATIENT WAS FASTINGPERFORMED BY: [facility]6370 [facility] [id number] Immature Grans (Abs) 0.0 {x10E3/uL} (Normal) Range: [...] 3.77-5.28 WBC 8.3 {x10E3/uL} (Normal) Range: 3.4-10.8 0-Udn-810067:11 FECAL OCCULT- Tubes sent home (83594) FECAL OCCULT HGB ASSAY, QUAL, 1-3 SIMULTANEOU positive (Normal) :30 HgA1C , Office (53100) HgA1C , Office 7.3 % (Abnormal) Range: [...] mg/dL suggests DIABETES MELLITUS per A.D.A. criteria. 74-Dop-939703:09 MIACRE tMICROCREAT 70.2 {mg/g_CRE} (Abnormal) MIALB 76.8 mg/L (Normal) CREU 109.3 mg/dL (Normal) 81-Vmr-407715:09 VITD 23.9 ng/mL (Abnormal) Comments: appt 05-14-11 Range: 30.0-100.0 Comments: Vitamin D deficiency has been defined by the [place] [employer] and an Endocrine Society practice guideline as alevel of serum 25-OH vitamin D less than 20 ng/mL (1,2).The Endocrine Society went on to further define vitamin Dinsufficiency as a level between 21 and 29 ng/mL (2).1. IOM ([place] [employer]). 2010. Dietary reference intakes for calcium and D. [place]: The National Academies Press.2. Bobo MF, Estrellita [place], Maddi CALIX, et al. Evaluation, treatment, and prevention of vitamin D deficiency: an Endocrine Society clinical practice guideline. JCEM. 2010; 96(7): 1911-30.Performed at: [facility] [id number] Director: Charisma Hamilton MD, Phone: [phone] 9-Epw-563895:21 CHEST WITHOUT CONTRAST Radiology Report See Note [...] regarding this report, please jyoti edison felipe 70D0cfsaojn line @ Dictated on 02/15/111125 by Boone Alarcon DOribed on 02/15/111732 by ITS IMPORTSign by Emery Alarcon DO on 02/15/111733 Sign by: Emery Alarcon DO 3-Hgi-618760:30 HgA1C , Office (31035) HgA1C , Office 7.4 % (Abnormal) Range: 4.6 - 7.1 :30 Blood Glucose , Office (98591) Blood Glucose , Office 153 (Normal) :07 [...] ANNAMARIE WOODWARD MD :01 HgA1C , Office (90246) HgA1C , Office 7.9 % (Abnormal) Range: 4.6 - 7.1 64-Yjv-581519:01 Blood Glucose , Office (30347) Blood Glucose , Office 133 (Normal) :52 [...] CREAT 107.1 mg/dL (Normal) :52 VIT D,25 29832 19.0 ng/mL (Abnormal) Range: 32.0-100.0 Comments: Recent studies consider the lower limit of 32.0 ng/mL to helena threshold for optimal health.Sunday BETTENCOURT. J Nutr. 2004;135(2):317-22.Performed at: [facility] LabTer[place] [address]Lab Director: Charisma Hamilton MD, Phone: [phone] :[phone] VITAMIN B12 447 pg/mL (Normal) Range: 254-1320 Comments: There is a low frequency possibility that high titers ofintrinsic blocking antibodies may not be completely inactivated during the reaction pretreatment stepof this testing method. If test results are i n conflictwith the clinical diagnosis, patient should be testedfor the presence of intrinsic factor blocking antibodies. 09-Mkk-431714:02 BILAT SCRN DIGITAL & CAD Radiology Report [...] on 04/05/10 0305 Sign by: KEYA TREJO 68-Vgi-135295:02 DEXA BONE DENSITY STUDY (HP) Radiology Report See Note (Normal) Comments: CLINICAL:Female, 69 years old. The patient is postmenopausal. EXAMINATION:DUAL ENERGY X-RAY ABSORPTIOMETRY / DEXA. TECHNIQUE:Bone Mineral Density (BMD) measurements of lumbar spine and bila teralhipswer e obtained using a Acision scanner.. COMPARISON:Comparison is made with prior examination [...] by: John Babcock :28 HgA1C , Office (31099) HgA1C , Office 8.2 % (Abnormal) Range: 4.6 - 7.1 :28 Blood Glucose , Office (79934) Blood Glucose , Office 205 (Normal) :27 [...] CHOL 169 mg/dL (Normal) Comments: <200 mg/dL Jqykezkao870-637 mg/dL Borderline>240 mg/dL High Risk HDL 24 [...] the presence of intrinsic factor blocking antibodies. 3-Wrh-592576:47 CHEST WITHOUT CONTRAST Radiology Report See Note (Normal) Comments: Exam Number: [id number] CT SCAN OF THE THORAX Multiple axial [...] unchanged as well. Reported By: JOHN BABCOCK 19-Pyr-742434:27 VITAMIN B-12 (CYANOCOBALAMIN) Comments: PATIENT NOT FASTINGPERFORMED BY: [email or web address] [facility] [id number] (79799) Vitamin B12 338 pg/mL (Normal) Range: 211-946 Comments: Please note reference interval change 06-Ysk-446848:27 Vitamin D Hydroxy (54101) Comments: PATIENT NOT FASTINGPERFORMED BY: [email or web address] [facility] [id number] Vitamin D, 25-Hydroxy 17.2 ng/mL (Abnormal) Range: 32.0-100.0 Comments: Recent studies consider the lower limit of 32.0 ng/mL to be athreshold for optimal health.Sunday BETT[place]RT. J Nutr. 2004;135(2):317-22. :27 CBC WITH MANUAL DIFF Comments: PATIENT NOT FASTINGPERFORMED BY: [facility]CoOverlook [facility] CenterVendyq1083 [facility] [id number] Information: [id number] (58731) Baso (Absolute) 0.0 {x10E3/uL} (Normal) Range: 0.0-0.2 [...] 3.80-5.10 WBC 7.3 {x10E3/uL} (Normal) Range: 4.0-10.5 44-Cdv-077950:27 METABOLIC PANEL, COMPREHENSIVE Comments: PATIENT NOT FASTINGPERFORMED BY: [facility]CoOverlook [facility] CenterAvoxhp1749 [facility] [id number] (77036) ALT (SGPT) 7 [iU]/L (Normal) Range: 0-40 [...] Range: 65-99 :38 Blood Glucose , Office (20370) Blood Glucose , Office 133 (Normal) :57 [...] CHOL 186 mg/dL (Normal) Comments: <200 mg/dL Heuemmceh286-667 mg/dL Borderline>240 mg/dL High Risk 26-Tna-10725:57 LIVER ALT 9 U/L (Abnormal) Range: 12-78 D BILI 0.10 mg/dL (Normal) Range: 0.00-0.30 T BILI 0.20 mg/dL (Normal) Range: 0.00-1.00 ALB 3.7 g/dL (Normal) Range: 3.4-5.0 ALK P 51 U/L (Normal) Range: 50-136 AST 6 U/L (Abnormal) Range: 15-37 T PROT 7.3 g/dL (Normal) Range: 6.4-8.2 56-Zcz-406752:17 KNEE,4 OR MORE VIEWS (MT) Radiology Report See Note (Normal) Comments: Exam Number: [id number] CLINICAL:Medial pain X-RAY EXAMINATION RIGHT KNEE TECHNIQUE: [...] Report See Note (Normal) Comments: Exam Number: [id number] NONCONTRAST CHEST CT Comparison is made with [...] difficile Toxins Negative (Normal) Comments: PERFORMED BY: [facility] [id number] :51 A+B, EIA :51 Ova + Parasite Exam Comments: PERFORMED BY: [facility] [id number] Ova + Parasite Exam Final report (Normal) Comments: These results were obtained using wet preparation(s) and trichromestained smear. This test does not include testing for Cryptosporidiumparvum, Cyclospora, or Microsporidia. Result 1 NOCP (Normal) Comments: No ova, cysts, or parasites seen. :51 Stool Culture Comments: Clinical Information: SRC:ST PERFORMED BY: [facility] Yxlcuy0575 [facility] [id number] Campylobacter Culture Final report (Normal) E coli Shiga Toxin EIA Negative (Normal) Result 1 NCI (Normal) Comments: No Campylobacter species isolated. Result 1 NSS (Normal) Comments: No Salmonella or Shigella recovered. Salmonella/Shigella Screen Final report (Normal) :51 White Blood Cells (WBC), Comments: PERFORMED BY: [facility] [id number] Stool Result 1 NWBC (Normal) Comments: No white blood cells seen. White Blood Cells (WBC), Final report (Normal) Comments: Reference Range: None Seen Stool :52 CBC With Differential/Platelet Comments: PATIENT WAS FASTINGPERFORMED BY: [facility] Vdjyze1488 [facility] [id number] Baso (Absolute) 0.0 {x10E3/uL} (Normal) Range: 0.0-0.2 [...] 11.7-15.0 WBC 5.2 {x10E3/uL} (Normal) Range: 4.0-10.5 54-Fhk-250428:52 Comp. Metabolic Panel (14) Comments: PATIENT WAS FASTINGPERFORMED BY: [facility]6370 [facility] [id number] A/G Ratio 1.6 (Normal) Range: 1.1-2.5 Albumin, [...] Glucose, Serum 145 mg/dL (Abnormal) Range: 65-99 54-Png-684168:52 Lipid Panel With LDL/HDL Comments: PATIENT WAS FASTINGPERFORMED BY: [facility] [id number] Ratio Cholesterol, Total 135 mg/dL (Normal) Range: [...] pg/mL (Normal) Comments: PATIENT WAS FASTINGPERFORMED BY: [email or web address] [facility] [id number] 0:52 Range: 211-911 21-Rzz-15179 Vitamin D, 25-Hydroxy 13.6 ng/mL Comments: PATIENT WAS FASTINGPERFORMED BY: [facility]6370 [facility] [id number] 0:52 (Abnormal) Range: 32.0-100.0 Comments: Recent studies consider the lower limit of 32.0 ng/mL to be athreshold for optimal health.Sunday BETT[place]RT. J Nutr. 2004;135(2):317-22. :32 HgA1C , Office (14264) HgA1C , Office 6.9 % (Normal) Range: 4.6 - 7.1 :32 Blood Glucose , Office (43861) Blood Glucose , Office 179 (Normal) 03-Inu-581076:25 ABDOMEN LIMITED US () Radiology Report See Note (Normal) Comments: Exam Number: [id number] CLINICAL:Abdominal pain. LIMITED ABDOMINAL ULTRASOUND COMPARISON:None. FINDINGS: [...] of cholecystitis. Reported By: HALIMA TURNER M.D. 2-Qti-078186:35 Urinalysis, Office (83350) UA - BILIRUBIN Moderate (Normal) UA - [...] (14) Comments: PATIENT NOT FASTINGPERFORMED BY: BELKYS [facility]6370 [facility] [id number] A/G Ratio 1.3 (Normal) Range: 1.1-2.5 Albumin, [...] (7) Comments: PATIENT NOT FASTINGPERFORMED BY: BELKYS [facility]CoOver[facility] CenterHrowgi5383 [facility] [id number] Bilirubin, Direct 0.17 mg/dL (Normal) Range: 0.00-0.40 [...] g/dL (Normal) Range: 6.4-8.2 :27 VIT D,25 48676 16.4 ng/mL (Abnormal) Comments: ORDERED LIPID,LIVER ALSO Range: 32.0-100.0 Comments: Recent studies consider the lower limit of 32.0 ng/mL to helena threshold for optimal health.Sunday BETT[place]RT. J Nutr. 2004;135(2):317-22.Performed At: [facility] [place] [address] [id number] :27 VITAMIN B12 430 pg/mL (Normal) Comments: ORDERED LIPID,LIVER ALSO Range: 254-1320 73-Wjw-399940:01 BRAIN/HEAD W/WO CONTRAST Radiology Report See Note (Normal) Comments: Exam Number: [id number] CT OF THE HEAD WITH AND WITHOUT CONTRAST [id number] woman who has had vague symptoms of [...] 02, 2008. Reported By: THANH ANNE M.D. 94-Xsr-92130:51 CBCD,SMEAR DIFF CELLS COUNTED 100 (Normal) EOS [...] mg/dL (Normal) Range: 0.00-0.30 :51 VIT D,25 51934 6.3 ng/mL (Abnormal) Range: 32.0-100.0 Comments: Recent studies consider the lower limit of 32.0 ng/mL to hleena threshold for optimal health.Sunday BETTENCOURT. J Nutr. 2004;135(2):317-22.Performed At: [facility]6370 [place], [place] [id number] :51 VITAMIN B12 301 pg/mL (Normal) Range: 211-911 :43 CHEST WITHOUT CONTRAST Radiology Report See Note (Normal) Comments: Exam Number: [id number] CLINICAL: Nodules CT CHEST WITHOUT CONTRAST COMPARISON:April [...] cardiopulmonary disease Reported By: RIO KAY M.D. 13-Fvm-867752:13 HgA1C , Office (08436) HgA1C , Office 7.5 % (Abnormal) Range: 4.6 - 7.1 51-Zrx-687194:13 Blood Glucose , Office (47287) Blood Glucose , Office 203 (Normal) Antiparietal Cell 2.2 {Units} Comments: PERFORMED BY: [facility] [facility] [id number] 0:04 Antibody (Normal) Range: 0.0-20.0 Comments: Negative 0.0 - 20.0 Equivocal 20.1 - 24.9 Positive >24.9 . Parietal Cell Antibodies are found in 90% of patients with pernicious anemia and 30% of first degree relatives with pernicious anemia. 32-Cyc-026590:04 CBC With Differential/Platelet Comments: PERFORMED BY: [facility] [id number] Baso (Absolute) 0.0 {x10E3/uL} Range: 0.0-0.2 (Normal) [...] Factor Abs, Negative (Normal) Comments: PERFORMED BY: [facility] CenterZozgoxkqam9098 [facility] [id number] 0:04 Serum Vitamin B12 472 pg/mL (Normal) Comments: PERFORMED BY: [facility] CenterOwtdyssjzi0568 [facility] [id number] 0:04 Range: 211-911 :32 Fecal Occult Blood , Office (58114) Fecal Occult Blood Negative (Normal) , Office Ferritin, Serum 21 ng/mL (Normal) Comments: PATIENT NOT FASTINGPERFORMED BY: [facility] Gqgskd4259 Ryan RoadDublin [place] [id number] :21 Range: 10-291 Folate (Folic >24.0 ng/mL (Normal) Comments: PATIENT NOT FASTINGPERFORMED BY: [facility] Iyykns2186 [address] ConnectedDublin [place] [id number] :21 Acid), Serum Comments: Indeterminate: 3.4 - 5.4 Deficient: <3.4 :21 Iron and TIBC Comments: PATIENT NOT FASTINGPERFORMED BY: [facility] Nwtexa3302 [address] ConnectedDublin [place] [id number] Iron Bind.Cap.(TIBC) 377 ug/dL (Normal) Range: 250-450 Iron Saturation 13 % (Abnormal) Range: 15-55 Iron, Serum 49 ug/dL (Normal) Range: 35-155 UIBC 328 ug/dL (Normal) Range: 150-375 LDH 145 [iU]/L (Normal) Comments: PATIENT NOT FASTINGPERFORMED BY: [facility] Ybkyrq5445 Ryan RoadDublin [place] [id number] :21 Range: 100-250 Reticulocyte Count 2.1 % (Normal) Comments: PATIENT NOT FASTINGPERFORMED BY: [facility] Hvksuy5200 [address] RoadDublin [place] [id number] :21 Range: 0.5-3.0 Vitamin B12 182 pg/mL Comments: PATIENT NOT FASTINGPERFORMED BY: [facility] Xhwdvn9405 [address] ConnectedDublin [place] [id number] :21 (Abnormal) Range: 211-911 :33 HgA1C , Office (58879) Comments: done>Wf. HgA1C , Office 6.8 % (Normal) Range: 4.6 - 7.1 :33 Blood Glucose , Office (08539) Comments: done>Wf. Blood Glucose , Office 150 [...] mg/dL VLDL 54 mg/dL (Abnormal) Range: 5-40 50-Zvx-653400:06 LIVER Comments: SEND A COPY OF THE LIPID AND LIVER RESULTSONLY. JLG ALB 3.6 g/dL (Normal) Range: 3.4-5.0 ALK P 47 U/L (Abnormal) Range: 50-136 ALT 25 U/L (Abnormal) Range: 30-65 AST 14 U/L (Abnormal) Range: 15-37 D BILI 0.06 mg/dL (Normal) Range: 0.00-0.30 T BILI 0.31 mg/dL (Normal) Range: 0.00-1.00 T PROT 6.7 g/dL (Normal) Range: 6.4-8.2 25-Aab-386365:27 BILAT SCRN DIGITAL & CAD Radiology Report See Note (Normal) Comments: Exam Number: [id number] MAMMOGRAM, BILATERAL SCREENING DIGITAL AND CAD HISTORYRoutine [...] kailash werealso examined with computer-aided detection software ([employer], [employer] Reported By: KEYA TREJO M.D. 65-Eri-797631:27 DEXA BONE DENSITY STUDY (HP) Radiology Report See Note (Normal) Comments: Exam Number: [id number] BONE DENSITOMETRY HISTORYPostmenopausal. TECHNIQUE Bone densitometry of the lumbar spine and left hip was performed. Thebest criteria for evaluation of osteoporosis is the T- value, whichrepresents the comparison of the patient's bone mass to an expectedpeak bone mass. For most patients, the mean T-value of L1 through L4is used to evaluate the lumbar spine. Based on the [facility] WorldHealth Organization classifications, the hip is evaluated [...] left hip. Reported By: KEYA TREJO M.D. 54-Wxd-950677:46 HgA1C , Office (35181) HgA1C , Office 6.7 % (Normal) Range: 4.6 - 7.1 31-Jpi-667410:46 Blood Glucose , Office (55726) Blood Glucose , Office 170 (Normal) :46 [...] Report See Note (Normal) Comments: Exam Number: [id number] RIGHT KNEE CLINICAL INFORMATIONKnee pain. Standing AP [...] Report See Note (Normal) Comments: Exam Number: [id number] CT CHEST NONCONTRAST CLINICAL STATEMENTFollow of lung [...] RICHARD CANADA M.D. :33 HgA1C , Office (71153) HgA1C , Office 6.5 % (Normal) Range: 4.6 - 7.1 :33 Blood Glucose , Office (23946) Blood Glucose , Office 89 (Normal) :34 [...] Range: 6.4-8.2 :17 Blood Glucose , Office (24819) Blood Glucose , Office 175 (Normal) :41 [...] Report See Note (Normal) Comments: Exam Number: [id number] CT SCAN OF CHEST HISTORYCough. Consecutive axial [...] is suggested. Reported By: KEYA TREJO M.D. 6-Sjo-846190:45 HgA1C , Office (76282) Comments: [facility] HgA1C , Office 6.6 % (Normal) Range: 4.6 - 7.1 :45 Blood Glucose , Office (58882) Comments: [facility] Blood Glucose , Office 105 [...] Report See Note (Normal) Comments: Exam Number: [id number] CHEST PA AND LATERAL STATEMENTCough and pneumonia. [...] CHIVO MONIQUE M.D. :41 HgA1C , Office (79911) HgA1C , Office 6.8 % (Normal) Range: 4.6 - 7.1 :41 Blood Glucose , Office (57751) Blood Glucose , Office 126 (Normal) 12-Isd-995453:11 CBCD,SMEAR DIFF CELLS COUNTED 100 (Normal) EOS [...] 47-70 WBC 7.4 K/mm3 (Normal) Range: 4.4-11.0 16-Ula-855523:11 COMP METABOLIC A/G 1.1 {RATIO} (Normal) Range: [...] T PROT 7.1 g/dL (Normal) Range: 6.4-8.2 70-Jdj-979724:11 COMPLETE UA BACTERIA 0 SEEN {/hpf} (Normal) [...] (Normal) Range: 0-5 Comments: Result: 0-5 SEEN 18-Lbb-059574:11 MICROALBUMIN,UR 9.1 mg/L (Normal) :11 PFLIP CHOL [...] mg/dL VLDL 58 mg/dL (Abnormal) Range: 5-40 22-Qej-594017:11 TSH 0.85 {uIU/mL} (Normal) Range: 0.34-4.82 :11 HgA1C , Office (70929) HgA1C , Office 6.7 % (Normal) Range: 4.6 - 7.1 :11 Blood Glucose , Office (11230) Blood Glucose , Office 153 (Normal) Plan of Care Name Dates Details Instructions Type 2 diabetes mellitus, uncontrolled : Follow up in 3 months Indication: Type 2 diabetes mellitus, uncontrolled Coronary artery disease : Reviewed Bar Tender Letter Indication: Coronary artery disease Hypertensive heart [...] heart failure Coronary artery disease : Reviewed Bar Tender Letter Indication: Coronary artery disease Diabetes mellitus [...] ATRIAL FIBRILLATION (Renamed from A-fib) : Reviewed Bar Tender Letter Indication: ATRIAL FIBRILLATION (Renamed from A-fib) [...] ATRIAL FIBRILLATION (Renamed from A-fib) : Reviewed Bar Tender Letter Indication: ATRIAL FIBRILLATION (Renamed from A-fib) Type 2 diabetes mellitus, uncontrolled : Follow up in 3 months Indication: Type 2 diabetes mellitus, uncontrolled Gout, arthritis : Reviewed Lab Indication: Gout, arthritis Asthma : Reviewed Bar Tender Letter Indication: Asthma Type 2 diabetes mellitus, uncontrolled : *Diabetes Education Indication: Type 2 diabetes mellitus, uncontrolled Coronary artery disease : Reviewed Bar Tender Letter Indication: Coronary artery disease Mixed dyslipidemia [...] Indication: Asthma Coronary artery disease : Reviewed Bar Tender Letter Indication: Coronary artery disease Hypertensive heart [...] meninges : Follow up on Friday with [facility] Indication: Benign neoplasm of cerebral meninges [...] : Follow up in 10 days with [facility] Indication: Cough Laryngitis : Laryngitis Education [...] pelvic and bimanual performed Planned Observations TSH (26803)Indication: ATRIAL FIBRILLATION (Renamed from A-fib) On: 52-Xrb-384236:16 Request URINALYSIS, W/ MICRO (90064)Indication: Diabetes mellitus type II, controlled On: 69-Orb-758208:16 Request MICROALBUMIN: CREATININE RATIO (89540) AND (56663)Indication: Diabetes mellitus type II, controlled On: 78-Phx-760462:16 Request METABOLIC PANEL, COMPREHENSIVE (26494)Indication: Diabetes mellitus type II, controlled On: 33-Frr-062072:16 Request LIPOPROTEIN, BLD, BY NMR (59284)Indication: Diabetes mellitus type II, controlled On: 26-Bul-178889:16 Request LIPID PANEL (39877)Indication: Diabetes mellitus type II, controlled On: 35-Gyb-364579:16 Request CBC W/AUTO DIFF WBC (55544)Indication: Diabetes mellitus type II, controlled On: 37-Aob-474216:15 Request VITAMIN B-12 (CYANOCOBALAMIN) (71571)Indication: Other vitamin B12 deficiency anemia On: 4-Zsl-346109:50 Request TSH (06273)Indication: ATRIAL FIBRILLATION (Renamed from A-fib) On: 0-Xum-738049:50 Request URINALYSIS, W/ MICRO (78189)Indication: Hypertensive heart disease without heart failure On: 9-Jxx-301917:49 Request MICROALBUMIN: CREATININE RATIO (49099) AND (58112)Indication: Hypertensive heart disease without heart failure On: 0-Qic-730590:49 Request METABOLIC PANEL, COMPREHENSIVE (73763)Indication: Hypertensive heart disease without heart failure On: 8-Ozp-494310:49 Request CBC W/AUTO DIFF WBC (35137)Indication: Hypertensive heart disease without heart failure On: 7-Bnx-156106:49 Request CALCIFEDIOL (96431)Indication: Vitamin D deficiency, unspecified On: 8-Zjm-159836:49 Request LIPID PANEL (01208)Indication: Mixed dyslipidemia On: 5-Dky-033662:49 Request URINALYSIS, W/ MICRO (31241)Indication: Type 2 diabetes mellitus, uncontrolled On: 25-Lui-170527:23 Request MICROALBUMIN: CREATININE RATIO (73711) AND (48555)Indication: Type 2 diabetes mellitus, uncontrolled On: 86-Djv-446688:23 Request HEMOGLOBIN GLYCLATED (HGB A1C) (25420)Indication: Type 2 diabetes mellitus, uncontrolled On: 20-Qib-746326:03 Request HgA1C , Office (41904)Indication: Type 2 diabetes mellitus, uncontrolled On: 14-Dvb-579131:46 Request Vitamin D Hydroxy (24062)Indication: Vitamin D deficiency, unspecified On: 44-Lvm-300894:16 Request VITAMIN B-12 (CYANOCOBALAMIN) (19948)Indication: Other vitamin B12 deficiency anemia On: 12-Hzt-849637:16 Request CBC with auto diff (06196)Indication: Iron deficiency anemia, unspecified On: 82-Bok-192136:15 Request LIPID PANEL (67731)Indication: Mixed dyslipidemia On: 19-Nvz-425923:15 Request METABOLIC PANEL, COMPREHENSIVE (72826)Indication: Type 2 diabetes mellitus, uncontrolled On: 02-Qrn-333268:15 Request CBC W/AUTO DIFF WBC (78766)Indication: Iron deficiency anemia, unspecified On: 94-Atd-024299:44 Request URINALYSIS, W/ MICRO (52719)Indication: Heart disease, hypertensive, malignant, without heart failure On: 36-Rxu-902817:44 Request METABOLIC PANEL, COMPREHENSIVE (78986)Indication: Heart disease, hypertensive, malignant, without heart failure On: 19-Uid-312970:44 Request MICROALBUMIN: CREATININE RATIO (88471) AND (21566)Indication: Heart disease, hypertensive, malignant, without heart failure On: 56-Onq-148272:44 Request IRON (09420)Indication: Iron deficiency anemia, unspecified On: 46-Lin-468783:44 Request CBC, Platelets & Auto Diff (15736)Indication: SOB On: 3-Chh-843132:09 Request Renal function Panel (97758)Indication: SOB On: 6-Fax-476093:09 Request Vitamin D Hydroxy (96054)Indication: Vitamin D deficiency, unspecified On: 53-Iph-838686:04 Request VITAMIN B-12 (CYANOCOBALAMIN) (29645)Indication: Other vitamin B12 deficiency anemia On: :04 Request METABOLIC PANEL, COMPREHENSIVE (56199)Indication: Type 2 diabetes mellitus, uncontrolled On: 79-Aeh-790688:04 Request IRON (06168)Indication: Iron deficiency anemia, unspecified On: 17-Zpo-070585:59 Request IRON (03681)Indication: Iron deficiency anemia, unspecified On: :18 Request CBC WITH MANUAL DIFF (13037)Indication: Iron deficiency anemia, unspecified On: 51-Okc-371316:43 Request METABOLIC PANEL, COMPREHENSIVE (44867)Indication: Hypertensive heart disease without heart failure On: 44-Wme-756364:43 Request CBC with manual diff (41955)Indication: Anemia On: :53 Request Comments: recheck in 3 months Ferritin (42038)Indication: Anemia On: :53 Request Iron Binding Capacity (TIBC) (58996)Indication: Anemia On: :53 Request Iron (97100)Indication: Anemia On: :53 Request LIPID PANEL (17164)Indication: Mixed dyslipidemia On: 86-Sbe-576785:43 Request IRON (16510)Indication: Iron deficiency anemia, unspecified On: 56-Jly-099072:35 Request Vitamin D Hydroxy (44207)Indication: Vitamin D deficiency, unspecified On: 3-Abk-264158:14 Request METABOLIC PANEL, COMPREHENSIVE (80199)Indication: Type 2 diabetes mellitus, uncontrolled On: 4-Pui-836185:13 Request IRON BINDING CAPACITY (TIBC) ([id number])Indication: Iron deficiency anemia, unspecified On: 8-Mhq-506107:10 Request FERRITIN ([id number])Indication: Iron deficiency anemia, unspecified On: 9-Dxc-610159:10 Request IRON ([id number])Indication: Iron deficiency anemia, unspecified On: 2-Nra-503900:10 Request MICROALBUMIN: CREATININE RATIO (72637) AND (84908)Indication: Type 2 diabetes mellitus, uncontrolled On: :58 Request METABOLIC PANEL, COMPREHENSIVE (65747)Indication: Type 2 diabetes mellitus, uncontrolled On: : Request CBC WITH MANUAL DIFF (25913)Indication: Type 2 diabetes mellitus, uncontrolled On: :58 Request Vitamin D Hydroxy (98395)Indication: Vitamin D deficiency, unspecified On: : Request VITAMIN B-12 (CYANOCOBALAMIN) (07825)Indication: Other vitamin B12 deficiency anemia On: : Request LIPID PANEL (59256)Indication: Mixed dyslipidemia On: : Request METABOLIC PANEL, COMPREHENSIVE (15596)Indication: Hypertension On: : Request CBC WITH MANUAL DIFF ([id number])Indication: Other vitamin B12 deficiency anemia On: : Request VITAMIN D, 1, 25-DIHYDROXY (38966)Indication: Vitamin D deficiency, unspecified On: : Request Vitamin D Hydroxy (75176)Indication: Vitamin D deficiency, unspecified On: : Request LIPID PANEL (83580)Indication: Mixed dyslipidemia On: : Request METABOLIC PANEL, COMPREHENSIVE (96064)Indication: Diabetes mellitus type II, controlled On: : Request CBC WITH MANUAL DIFF ([id number])Indication: Other vitamin B12 deficiency anemia On: :29 Request MICROALBUMIN: CREATININE RATIO (48373) AND (45167)Indication: Diabetes mellitus type II, controlled On: :29 Request VITAMIN B-12 (CYANOCOBALAMIN) (16483)Indication: Other vitamin B12 deficiency anemia On: :29 Request HEMOGLOBIN GLYCLATED (HGB A1C) (79046)Indication: Diabetes mellitus type II, controlled On: :27 Request LIPID PANEL (61200)Indication: Mixed dyslipidemia On: :16 Request METABOLIC PANEL, COMPREHENSIVE (89177)Indication: Type 2 diabetes mellitus, uncontrolled On: :15 Request CBC WITH MANUAL DIFF ([id number])Indication: Type 2 diabetes mellitus, uncontrolled On: :15 Request MICROALBUMIN: CREATININE RATIO (18960) AND (69124)Indication: Type 2 diabetes mellitus, uncontrolled On: :15 Request VITAMIN B-12 (CYANOCOBALAMIN) (34807)Indication: Other vitamin B12 deficiency anemia On: :15 Request Vitamin D Hydroxy (56482)Indication: Vitamin D deficiency, unspecified On: :15 Request HgA1C , Office (69278)Indication: Type 2 diabetes mellitus, uncontrolled On: 77-Fzs-640863:38 Request VITAMIN B-12 (CYANOCOBALAMIN) (48282)Indication: Other vitamin B12 deficiency anemia On: :55 Request LIPID PANEL (70153)Indication: Mixed dyslipidemia On: :55 Request METABOLIC PANEL, COMPREHENSIVE (16901)Indication: Heart disease, hypertensive, malignant, without heart failure On: :53 Request CBC WITH MANUAL DIFF (02712)Indication: Diverticulitis On: :53 Request LEUKOCYTE COUNT, FECAL (17456)Indication: Diarrhea On: :47 Request C.Difficile, Stool (42005)Indication: Diarrhea On: :47 Request BRO CULTURE-STOOL (89902)Indication: Diarrhea On: :47 Request Metabolic Panel, Comprehensive (33067)Indication: Abdominal pain, unspecified abdominal location On: :46 Request HEPATIC FUNCTION PANEL (59135)Indication: Abdominal pain, unspecified abdominal location On: :46 Request Bilirubin, Direct (31707)Indication: Abdominal pain, unspecified abdominal location On: :44 Request Bilirubin, total (91962)Indication: Abdominal pain, unspecified abdominal location On: :44 Request CBC WITH MANUAL DIFF (87537)Indication: Other vitamin B12 deficiency anemia On: 06-Noh-221078:15 Request VITAMIN B-12 (CYANOCOBALAMIN) (64578)Indication: Other vitamin B12 deficiency anemia On: 02-Bqz-740385:15 Request LIPID PANEL (41700)Indication: Mixed dyslipidemia On: 30-Rjh-968702:14 Request METABOLIC PANEL, COMPREHENSIVE (81773)Indication: Heart disease, hypertensive, malignant, without heart failure On: 40-Xix-562147:14 Request Vitamin D Hydroxy (24210)Indication: Vitamin D deficiency, unspecified On: 84-Uiz-232590:06 Request CBC, PLATELETS & AUT DIFF (84768)Indication: Other vitamin B12 deficiency anemia On: :45 Request VITAMIN B-12 (CYANOCOBALAMIN) (30204)Indication: Other vitamin B12 deficiency anemia On: :45 Request HEPATIC FUNCTION PANEL (31037)Indication: Mixed dyslipidemia On: :44 Request LIPID PANEL (89173)Indication: Mixed dyslipidemia On: :44 Request Vitamin D Hydroxy (12513)Indication: vit d deficiency On: :33 Request Vitamin D Hydroxy (82131) On: :04 Request VITAMIN B-12 (CYANOCOBALAMIN) (61355)Indication: Other vitamin B12 deficiency anemia On: 73-Mrm-038389:04 Request CBC WITH MANUAL DIFF ([id number])Indication: Heart disease, hypertensive, malignant, without heart failure On: 07-Vwk-316333:03 Request METABOLIC PANEL, COMPREHENSIVE (92902)Indication: Heart disease, hypertensive, malignant, without heart failure On: 97-Uqt-753651:03 Request LIPOPROTEIN, BLD, BY NMR ([id number])Indication: Mixed dyslipidemia On: : Request HEPATIC FUNCTION PANEL ([id number])Indication: Mixed dyslipidemia On: 31-Jfn-098171: Request LIPID PANEL (67291)Indication: Mixed dyslipidemia On: 33-Qmf-003163:01 Request FOLIC ACID SERUM (80298)Indication: Anemia On: 67-Lda-648590:06 Request FERRITIN ([id number])Indication: Anemia On: : Request IRON ([id number])Indication: Anemia On: 58-Gge-253459: Request IRON BINDING CAPACITY (TIBC) ([id number])Indication: Anemia On: 58-Zhn-883135:05 Request RETICULOCYTE COUNT MANUL (06809)Indication: Anemia On: 60-Lis-012827: Request LDH (LD) (LACTATE DEHYDROGENASE) (65611)Indication: Anemia On: :05 Request VITAMIN B-12 (CYANOCOBALAMIN) (34190)Indication: Anemia On: :05 Request CBC WITH MANUAL DIFF ([id number])Indication: Anemia On: :25 Request HEPATIC FUNCTION PANEL (22975)Indication: Mixed dyslipidemia On: : Request LIPID PANEL (98872)Indication: Mixed dyslipidemia On: : Request MICROALBUMIN URINE QUANT (06358)Indication: Hypertension On: :42 Request TSH ([id number])Indication: Hypertension On: :42 Request METABOLIC PANEL, COMPREHENSIVE (44130)Indication: Diabetes mellitus type II, controlled On: :42 Request HEPATIC FUNCTION PANEL (35963)Indication: Mixed dyslipidemia On: :42 Request LIPID PANEL (21146)Indication: Mixed dyslipidemia On: :42 Request CBC WITH MANUAL DIFF ([id number])Indication: Anemia On: 37-Jpg-88054:36 Request HEPATIC FUNCTION PANEL (69134)Indication: Mixed dyslipidemia On: 94-Eqa-23150:36 Request LIPID PANEL (08270)Indication: Mixed dyslipidemia On: :36 Request HgA1C , Office (89875)Indication: Diabetes mellitus type II, controlled On: :17 Request URINALYSIS W/O MICRO (41815)Indication: Hypertension On: :47 Request TSH ([id number])Indication: Hypertension On: 20-Nex-710634:47 Request METABOLIC PANEL, COMPREHENSIVE ([id number])Indication: Hypertension On: 77-Vfx-754603:47 Request CBC WITH MANUAL DIFF ([id number])Indication: Hypertension On: 87-Qzy-050029:47 Request Thin prep Pap ([id number])Indication: well female - pap pelvic and bimanual performed On: 8-Yex-272607:02 Request Planned Encounters Medical; 3 Month FU - On: 15-Dec-2017 10:30 [facility] Nia Uriostegui DO, DO, Kathleen Planned Procedures ELECTROCARDIOGRAM, COMPLETE (ECG) On: 27-Aug-2017 Intent (34192)By: Nia Uriostegui DO Comments: nsr - ivcd - pvc no acute chg DO, Nia B 12 Injection, 1000 mcg (J3420)By: On: 28-May-2017 Intent Moody DO, Nia Moody DO, Comments: vitamin b12 1000mcg injectionlot: [id number]:11/2018L DELT IMpt tolerated wellAD FREIGHT AND PASSENGER AGENT Nia B 12 Injection, 1000 mcg (J3420)By: On: 12-Feb-2017 Intent Moody DO, Nia Moody DO, Comments: 1 ml given lt arm lot [id number] exp 06/28 Nia B 12 Injection, 1000 mcg (J3420)By: On: 29-Nov-2016 Intent Moody DO, Nia Moody DO, Comments: b12 1000mcglot: [id number]: 03/2018L DELT IMpt tolerated wellAD FREIGHT AND PASSENGER AGENT Nia Flu Vaccine (Quadrivalent) 84971Rf: On: 07-Nov-2016 Intent Moody DO, Nia Moody DO, Comments: Lot:[id number]:07/28/17Amt:0.5mlRoute:IMSite: L DltdGiven By: RAHUL Bar signed Nia B 12 Injection, 1000 mcg (J3420)By: On: 04-Nov-2016 Intent Moody DO, Nia Moody DO, Comments: lot [id number] exp 107577 mcgleft dltdIMas Nia B 12 Injection, 1000 mcg (J3420)By: On: 08-Aug-2016 Intent Moody DO, Nia Moody DO, Comments: Lot:[id number]:07/28Dose:1mlRoute:IMSite:l armGiven By:SASKIA signed Nia B 12 Injection, 1000 mcg (J3420)By: On: 24-Apr-2016 Intent Moody DO, Nia Moody DO, Comments: Lot:[id number]:05/28Dose:1mlRoute:IMSite:Given By:SASKIA signed Nia ELECTROCARDIOGRAM, COMPLETE (ECG) On: 24-Apr-2016 Intent (24818)By: Nia Uriostegui DO Comments: sinus ana no acute chg DO, Nia Aerosol Treatment (87656)By: Bela ROSAS, On: 27-Feb-2016 Intent Balbir Solu- Medrol Injection, 125mg On: 27-Feb-2016 Intent (J2930)By: Balbir Cramer MD Comments: lot [id number] 07/20181887534 mgleft gmIMas, FREIGHT AND PASSENGER AGENT Pulse Oximetry (17269)By: Bela ROSAS, On: 16-Jan-2016 Intent Balbir Aerosol Treatment (67862)By: Bela ROSAS, On: 16-Jan-2016 Intent Balbir Solu- Medrol Injection, 125mg On: 16-Jan-2016 Intent (J2930)By: Balbir Cramer MD Comments: Lot:[id number]:06/28Dose:125mgRoute:imSite:r hipGiven By:SASKIA signed CHEST XRAY, PA & LATERAL (36045)By: On: 16-Jan-2016 Intent Balbir Cramer MD Comments: ?PNA CAROTID ULTRASOUND (80310)By: Bela On: 16-Jan-2016 Intent Balbir ROSAS DEXA SCAN AXIAL SKELETON (75228)By: On: 16-Jan-2016 Intent Balbir Cramer MD MAMMOGRAM, SCREENING, BOTH BREAST On: 16-Jan-2016 Intent ([id number])By: Balbir Cramer MD B 12 Injection, 1000 mcg (J3420)By: On: 16-Jan-2016 Intent Balbir Cramer MD Comments: lot: [id number]: ite/route: L del/IMamt: 1mLVIS signed when applicableMONSTER Molina B 12 Injection, 1000 mcg (J3420)By: On: 11-Oct-2015 Intent Balbir Cramer MD Flu Vaccine (Quadrivalent) 30049Lp: On: 11-Oct-2015 Intent Balbir Cramer MD Comments: Lot #[id number]-8/30/17ite-L dltd, IMDose prefilled syringegiven by:MAYCO OSWALD and ABN signed B 12 Injection, 1000 mcg (J3420)By: On: 22-May-2015 Intent Fast DO, Maylin A B 12 Injection, 1000 mcg (J3420)By: On: 17-Mar-2015 Intent Fast DO, Maylin A Comments: lot: [id number]: 10/27site/route: L del/IMamt: 1mLVIS signed when applicableChelsea, BRAZER ASSEMBLER PNEUM VAC ADLT/IMUMNOSPR, SBC/INTRM On: 30-Dec-2014 Intent (23838)By: Maylin Melendez DO Comments: PNUEMOlot:[id number]:1*13*17site:Rt deltoidroute:IMdose:.5mlDEMICK, SMA B 12 Injection, 1000 mcg (J3420)By: On: 30-Dec-2014 Intent Maylin Melendez DO Comments: B12lot:[id number]:05/27site: LT deltoidROute: IMdose:1ml ADMINISTRATION OF INFLUENZA VIRUS On: 21-Oct-2014 Intent VACCINE (G0008)By: Maylin Melendez DO FLU VAC, SPLIT, >3 YEARS, INTRAMUSC On: 21-Oct-2014 Intent (34052)By: Maylin Melendez DO Comments: lot: [id number]: 08/09/16site/route: L del/IMamt: 1mLVIS signed when applicableChelsea, BRAZER ASSEMBLER MAMMOGRAM, SCREENING, BOTH BREAST On: 05-Oct-2014 Intent (79246)By: Maylin Melendez DO Cartoid DopplerBy: Maylin Melendez DO On: 05-Oct-2014 Intent B 12 Injection, 1000 mcg (J3420)By: On: 05-Oct-2014 Intent Maylin Melendez DO Comments: Lot:[id number]:02Route:IMSite:R deltoidDose: 1 mLgiven by: Adalgisa Sexton CMA B 12 Injection, 1000 mcg (J3420)By: On: 01-Sep-2014 Intent Adalgisa Sexton Comments: Lot:[id number]:12.26Route:IMSite:R deltoidDose: 1 mLgiven by: Adalgisa Sexton CMA B 12 Injection, 1000 mcg (J3420)By: On: 26-May-2014 Intent Adalgisa Sexton Comments: lot:[id number]:04/25route:IMdose:1MLSite:R deltoidgiven by: ANS B 12 Injection, 1000 mcg (J3420)By: On: 11-Apr-2014 Intent Carinaursula PEDROZA Kaci Comments: lot: [id number]: 11/25Dose: 1,000 mcgSite: l dltdLocation; IMby: Solu -Medrol Injection, 125 mg On: 22-Feb-2014 Intent (J2930)By: Maylin Melendez DO Comments: [id number] 6.29135 mgleft gmIMas, FREIGHT AND PASSENGER AGENT Solu -Medrol Injection, 125 mg On: 31-Jan-2014 Intent (J2930)By: Sherrie Amor CNP Comments: lot [id number] 06/2016location R hiproute imgiven by - msmith VIS and/or ABN signed B 12 Injection, 1000 mcg (J3420)By: On: 21-Jan-2014 Intent Maylin Melendez DO Comments: lot [id number] 05/2015location L armroute imgiven by - msmith VIS and/or ABN signed Aerosol Treatment (63585)By: Mt On: 14-Jan-2014 Intent Sherrie OJEDA Radiology - ChestBy: Sherrie Amor CNP On: 14-Jan-2014 Intent E Comments: stat call results to Dr Uriostegui is motor room controller EKG (55902)By: Sherrie Amor CNP On: 14-Jan-2014 Intent Comments: looks same as before No new ST -t wave changes ADMINISTRATION OF INFLUENZA VIRUS On: 29-Nov-2013 Intent VACCINE (G0008)By: Maylin Melendez DO Comments: Lot #[id number]-1.2015Site-L dltd, IMDose prefilled syringegiven by:LORIN laurent and ABN signed FLU VAC, SPLIT, >3 YEARS, INTRAMUSC On: 29-Nov-2013 Intent (72105)By: Maylin Melendez DO B 12 Injection, 1000 mcg (J3420)By: On: 29-Nov-2013 Intent Maylin Melendez DO Comments: Antoinette us dltd, Im - see flowsheet for lot and exp Radiology - Knee - Left - Weight On: 06-Sep-2013 Intent BearingBy: Maylin Melendez DO MAMMOGRAM, SCREENING, BOTH BREAST On: 18-Aug-2013 Intent (53976)By: Fast DO, Maylin A B 12 Injection, 1000 mcg (J3420)By: On: 18-Aug-2013 Intent Al DO Maylin A Aerosol Treatment (79277)By: Mt On: 16-Jul-2013 Intent Sherrie OJEDA Aerosol Treatment (03635)By: Mt On: 09-Jul-2013 Intent Sherrie OJEDA Radiology [...] (J3420)By: On: 27-Apr-2013 Intent Visit, Nurse Comments: Lot:[id number]:12/25Dose:1mlRoute:IMSite:l armGiven By:SASKIA signed Aerosol Treatment (29021)By: Moody On: 17-Feb-2013 Nia Amaya DO, DO, Kathleen Comments: more q/e less cough -- ok to use rescue inhaler prn not moer than bid with a fib -- if needs ansd worsen go to ER-- pulse reguar after treatment Spirometry (62322)By: Moody MCFARLAND, On: 17-Feb-2013 Intent Nia Reed DO Comments: mild restriction -- stable Solu- Medrol Injection, 125mg On: 17-Feb-2013 Intent (J2930)By: Nia Uriostegui DO Comments: lot: [id number]: 16site/route: RGM/IMamt: 2mLVIS signed when applicableChelsMONSTER armenta DO, Kathleen Eprescribed prescriptions (G8553)By: On: 17-Feb-2013 Intent Nia Uriostegui DO DONia EKG (37217)By: Maylin Melendez DO A On: 12-Jan-2013 Intent Comments: ekg showed normal sinus rhythym, left axis, no acute st/t wave changes Pelvic and Breast, Medicare On: 12-Jan-2013 Intent (G0101)By: Natalya Kohli Eprescribed prescriptions (G8553)By: On: 18-Dec-2012 Intent Maylin Melendez DO FLU VAC, SPLIT, >3 YEARS, INTRAMUSC On: 18-Dec-2012 Intent (69255)By: Natalya Kohli Comments: Lot #:[id number] date:mount given:0.5mlRoute: IMSite given: L dltdVIS and ABN signedGiven by: CHILO Gillespie ADMINISTRATION OF INFLUENZA VIRUS On: 18-Dec-2012 Intent VACCINE (G0008)By: Natalya Kohli B 12 Injection, 1000 mcg (J3420)By: On: 01-Dec-2012 Intent Tracy Barnes Comments: Lot:[id number]:09/24Dose:1mlRoute:IMSite:l armGiven By:SASKIA signed Eprescribed prescriptions (G8553)By: On: 02-Nov-2012 Intent Cipily OJEDA Sherrie Beck Radiology - Foot - RightBy: Ciesa On: 02-Nov-2012 Intent BIT BENDER, Carlotta B 12 Injection, 1000 mcg (J3420)By: On: 19-Oct-2012 Intent Tracy Barnes Comments: lot: [id number]: 09/23site/route: L deltoid/IMamt: 1mLVIS signed when applicableChelsea, BRAZER ASSEMBLER B 12 Injection, 1000 mcg (J3420)By: On: 31-Aug-2012 Intent Maylin Melendez DO Comments: Lot: [id number]: [id number]: 1000mcg/1mlRoute: IMSite: L deltoidGiven by: KASIA Samson Eprescribed prescriptions (G8553)By: On: 31-Aug-2012 Intent Natalya Kohli Nuclear Medicine - Other - Vertebral On: 18-Aug-2012 Intent AssessmentBy: Maylin Melendez DO Comments: V DXA, BONE DENSITY, AXIAL SKELETON On: 22-Jun-2012 Intent (38354)By: Maylin Melendez DO MAMMOGRAM, SCREENING, BOTH BREASTS On: 22-Jun-2012 Intent (01042)By: Maylin Melendez DO B 12 Injection, 1000 mcg (J3420)By: On: 15-Jun-2012 Intent Tracy Barnes Comments: lot: [id number]: 12/24site/route: R deltoid/IMamt: 1,000mcgVIS signed when applicableChelsea, BRAZER ASSEMBLER Eprescribed prescriptions (G8553)By: On: 17-Apr-2012 Intent Natalya Kohli B 12 Injection, 1000 mcg (J3420)By: On: 13-Apr-2012 Intent Ramona Vásquez Comments: Lot:[id number]:01/23Dose:1mlRoute:IMSite:r armGiven By:SASKIA signed Eprescribed prescriptions (G8553)By: On: 27-Mar-2012 Intent Susie Lopez LPN FLU VAC, SPLIT, >3 YEARS, INTRAMUSC On: 17-Jan-2012 Intent (65214)By: Maylin Melendez DO Comments: Lot #[id number]/13Site-left deltoidgiven by: Emili Stark LPN ADMINISTRATION OF INFLUENZA VIRUS On: 17-Jan-2012 Intent VACCINE (G0008)By: Maylin Melendez DO Eprescribed prescriptions (G8553)By: On: 17-Jan-2012 Intent Natalya Kohli B 12 Injection, 1000 mcg (J3420)By: On: 31-Dec-2011 Intent Maylin Melendez DO Comments: Lot:[id number]:Dose:1mlRoute:IMSite:L armGiven By:JACQUIE Aerosol Treatment (65187)By: Mt On: 24-Dec-2011 Intent Sherrie OJEDA B [...] week and copy to dr clements EKG (45173)By: Maylin Melendez DO On: 17-Sep-2011 Intent Comments: [...] MAMMOGRAM, SCREENING, BOTH BREASTS On: 14-May-2011 Intent (59388)By: Maylin Melendez DO CT - ChestBy: Maylin [...] Intent (J2930)By: Sherrie Amor CNP Comments: Lot #[id number]-4.13Site-R hip, IMDose 125mg, 2 mlgiven by: Aerosol Treatment (23584)By: Mt On: 24-Aug-2010 Intent Sherrie OJEDA Pulse Oximetry (39714)By: Keesha RN, On: 24-Aug-2010 Intent Ericka Spirometry (80599)By: Maylin Melendez DO On: 03-Aug-2010 Intent A Comments: good efffort and curve normal EKG (01409)By: Maylin Melendez DO A On: 03-Aug-2010 Intent Comments: ekg showed normal sinus rhythym, normal axis, no acute st/t wave changes poor r wave progression Radiology - Chest- PA and LatBy: Fast On: 03-Aug-2010 Intent Maylin MCFARLAND B 12 Injection, 1000 mcg (J3420)By: On: 11-Jul-2010 Intent Carol Stark LPN Comments: Lot #[id number]-01/20Site-left deltoidDose-1 mlgiven by: Emili Stark LPN TD Injection , IM (59647)By: Al On: 20-Apr-2010 Intent Maylin MCFARLAND Comments: Lot #[id number]/Site-L dtd, IMDose prefilledgiven by: B 12 Injection, 1000 mcg (J3420)By: On: 04-Apr-2010 Intent Carol Stark LPN Comments: Lot #[id number]-/12Site-left deltoidDose-1 mlgiven by:[facility] B 12 Injection, 1000 mcg (J3420)By: On: 16-Jan-2010 Intent Carol Reina LPN Comments: Lot #[id number]-2/11Site-R gfkJjzl9psbedww by: B 12 Injection, 1000 mcg (J3420)By: On: 12-Dec-2009 Intent Carol Stark LPN Comments: Lot #[id number]-06/21Site-left deltoidDose-1 mlgiven by:MAYRA FLU VAC, SPLIT, >3 YEARS, INTRAMUSC On: 14-Nov-2009 Intent (58636)By: Natalya Kohli ADMINISTRATION OF INFLUENZA VIRUS On: 14-Nov-2009 Intent VACCINE (G0008)By: Natalya Kohli Comments: Lot #: [id number] date:mount given: 0.5 mlRoute: IMSite given: left deltoid Given by: Lane Romeo RN DXA, BONE DENSITY, AXIAL SKELETON On: 01-Nov-2009 Intent (60513)By: Maylin Melendez DO MAMMOGRAM, SCREENING, BOTH BREASTS On: 01-Nov-2009 Intent (63240)By: Maylin Melendez DO ADMINISTRATION OF PNEUMOCOCCAL On: 01-Nov-2009 Intent VACCINE (G0009)By: Maylin Melendez DO PNEUM VAC ADLT/IMUMNOSPR, SBC/INTRM On: 01-Nov-2009 Intent (59530)By: Maylin Melendez DO B 12 Injection, 1000 mcg (J3420)By: On: 01-Nov-2009 Intent Carol Reina LPN Comments: Lot #[id number]-06/21Site-L dltdDose 30m/mlgiven by:KASIA GONZALES Pneumovax (64141)By: Carol Reina LPN On: 01-Nov-2009 Intent L Comments: Lot #[id number]-August 2010Site-R dltdDose 0.5mlgiven by:KASIA ANDERS B 12 Injection, 1000 mcg (J3420)By: On: 25-Aug-2009 Intent Carol Stark LPN Comments: Lot #[id number]-/12Site-left deltoidDose-1 mlgiven by:[facility] B 12 Injection, 1000 mcg (J3420)By: On: 13-Jul-2009 Intent Monik Rushing Comments: Lot #[id number]-01/2011Site-left srrrsvdHvpi5712gfi/1mlgiven by Diana Rushing LPN CT - ChestBy: Fast DO, Maylin A On: 05-Jun-2009 Intent Spirometry (52321)By: Seun, On: 05-Jun-2009 Intent Natalya Comments: goo deffort and curve mild small airway obst B 12 Injection, 1000 mcg (J3420)By: On: 24-May-2009 Intent Carol Stakr LPN Comments: Lot #[id number]-8/11Site-right deltoidDose-1 mlgiven by:[facility] Radiology - Knee - Right - Weight On: 23-Dec-2008 Intent BearingBy: Fast DO, Maylin A B 12 Injection, 1000 mcg (J3420)By: On: 23-Dec-2008 Intent Natalya Kohli Comments: Lot #:[id number] date:mount given:1mlRoute: IMSite given:left deltoidGiven by: CHILO Gillespie Aerosol Treatment (09074)By: On: 08-Nov-2008 Intent Natalya Carter Comments: post treatment breath sounds clear bilat. pt. states feels breathing better. Pulse Oximetry (39755)By: Raul, On: 08-Nov-2008 Intent Natalya Comments: 95% [...] Layton Melendez DOa A Comments: Lot #[id number]-12/2009Site-left goefewhXwud4249ytz/1mlgiven by Diana Rushing LPN CT - Brain/HeadBy: Maylin Melendez DO A On: 31-May-2008 Intent EKG (57090)By: Maylin Melendez DO On: 10-May-2008 Intent Comments: ekg showed normal sinus rhythym, leftaxis, nonspecific t changges unchanged fromprevious Echo CompleteBy: Layton Melendez DOa A On: 10-May-2008 Intent PFT - CompleteBy: Maylin Melendez DO A On: 10-May-2008 Intent Pulse Oximetry (97228)By: Al MCFARLAND, On: 10-May-2008 Intent Maylin A Comments: 95 Spirometry (99676)By: Maylin Melendez DO On: 10-May-2008 Intent A Comments: good effort and curve mild restriction CT - ChestBy: Maylin Melendez DO A On: 10-May-2008 Intent Bio Z (51091)By: Maylin Melendez DO A On: 10-May-2008 Intent [...] 01-Jan-2008 Intent Monik Rushing Comments: Lot #[id number]-5/10Site-left zyezpzfOhoo6jrsejvd by Diana Rushing LPN INJECTION, VITAMIN B-12 On: 03-Dec-2007 Intent CYANOCOBALAMIN, UP TO 1000 MCG Comments: injection given in left deltoid, Ptolerated welllo # [id number] 06/19 (Special Coverage Instructions Apply. See CIM: 45-4 and MCM: 2048) (J3420)By: Irais Monreal B 12 Injection, 1000 mcg (J3420)By: On: 26-Nov-2007 Intent Monik Rushing Comments: Lot #[id number]-5/10Site-left tueyivtRwgz1xpzixmg by Diana Rushing LPN INJECTION, VITAMIN B-12 [...] Maylin Melendez DO On: 30-Oct-2007 Intent Spirometry (45993)By: Maylin Melendez DO On: 30-Oct-2007 Intent A Comments: good effort and curve- some small airway decrease Radiology - Chest- PA and LatBy: Fast On: 30-Oct-2007 Intent DO Maylin A DXA, BONE DENSITY, AXIAL SKELETON On: 24-Jul-2007 Intent (73765)By: Maylin Melendez DO Comments: postmenopausal without estrogen MAMMOGRAM, SCREENING, BOTH BREASTS On: 24-Jul-2007 Intent (60116)By: Maylin Melendez DO Radiology - Knee - Right - Weight On: 15-Jun-2007 Intent BearingBy: Maylin Melendez DO Comments: call results CT - ChestBy: Maylin Melendez DO On: 03-Apr-[address] - ChestBy: Maylin Melendez DO On: 15-Aug-2006 Intent Spirometry (46596)By: Maylin Melendez DO On: 15-Aug-2006 Intent A Comments: good effort and curve- mild obstruction EKG (00283)By: Natalya Kohli On: 15-Aug-2006 Intent Comments: ekg showed normal sinus rhythym, normal axis, no acute st/t wave changes Radiology - ChestBy: LEE OJEDA, On: 25-Jun-2006 Intent PAMELA Comments: PA and LAT Solu- Medrol Injection, 125mg On: 25-Jun-2006 Intent (J2930)By: PAMELA HOWARD CNP Pulse Oximetry (77038)By: LEE OJEDA, On: 25-Jun-2006 Intent PAMELA Comments: pt tolerated well. ins waiver signed Aerosol Treatment (24991)By: LEE On: 25-Jun-2006 Intent PAMELA OJEDA Comments: ins wwaiver signed, pt tolerated well Spirometry (77544)By: Maylin Melendez DO On: 14-May-2006 Intent A Comments: good effort and curve-mild obstruction ADMINISTRATION OF PNEUMOCOCCAL On: 11-Feb-2006 Intent VACCINE (G0009)By: ULYSSES Quiñones PNEUM VAC ADLT/IMUMNOSPR, SBC/INTRM On: 11-Feb-2006 Intent (62921)By: ULYSSES Quiñones Bio Z (83865)By: Maylin Melendez DO On: 11-Feb-2006 Intent Comments: bp was 132/65- cardiac output, svr and thoracic fluid content is normal- will hold on med changes PNEUM VAC ADLT/IMUMNOSPR, SBC/INTRM On: 11-Feb-2006 Intent (91999)By: Maylin Melendez DO ADMINISTRATION OF PNEUMOCOCCAL On: 11-Feb-2006 Intent VACCINE ([id number])By: Maylin Melendez DO MAMMOGRAM, SCREENING, BOTH BREASTS On: 16-Oct-2005 Intent ([id number])By: Maylin Melendez DO A Planned Medications INJECTION, METHYLPREDNISOLONE SODIUM SUCCINATE, UP TO 125 MG Ordered: 21-Jun-2013 [address] [place]ER, [place]otta INJECTION, METHYLPREDNISOLONE SODIUM SUCCINATE, UP TO 125 MG Ordered: 17-Feb-2013 Pending Nia Uriostegui DO, DO, Nia INJECTION, METHYLPREDNISOLONE SODIUM SUCCINATE, UP TO 125 MG Ordered: 31-Jan-2014 Pending [place] BIT [place]ENDER, Carlotta INJECTION, METHYLPREDNISOLONE SODIUM SUCCINATE, UP TO 125 MG Ordered: 24-Aug-2010 Pending [place] BIT BENDER, Carlotta INJECTION, METHYLPREDNISOLONE SODIUM SUCCINATE, UP TO [...] Injection Solution Ordered: 17-Mar-2015 Pending Al MCFARLAND, Myalin A Vitamin B-12 1000 MCG/ML Injection Solution [...] MCG/ML Injection Solution Ordered: 12-Dec-2009 Pending Hluszti FREIGHT AND PASSENGER AGENT, Carol Vitamin B-12 1000 MCG/ML Injection Solution Ordered: 12-Feb-2017 Pending Moody DO, Nia Moody DO, Nia Vitamin B-12 1000 MCG/ML Injection Solution Ordered: 16-Jan-2010 Pending Long FREIGHT AND PASSENGER AGENT, Carol L Vitamin B-12 1000 MCG/ML Injection Solution Ordered: 04-Apr-2010 Pending Hluszti FREIGHT AND PASSENGER AGENT, Carol Vitamin B-12 1000 MCG/ML Injection Solution Ordered: 11-Jul-2010 Pending Hluszti FREIGHT AND PASSENGER AGENT, Carol Vitamin B-12 1000 MCG/ML Injection Solution Ordered: 21-Nov-2010 Pending Long FREIGHT AND PASSENGER AGENT, Carol L Vitamin B-12 1000 MCG/ML Injection Solution Ordered: 14-Jan-2011 Pending Natalya Kohli Vitamin B-12 1000 MCG/ML Injection Solution Ordered: 15-Feb-2011 Pending Long FREIGHT AND PASSENGER AGENT, Carol L Vitamin B-12 1000 MCG/ML Injection Solution Ordered: 18-Mar-2011 Pending Hluszti FREIGHT AND PASSENGER AGENT, Carol Vitamin B-12 1000 MCG/ML Injection Solution Ordered: 16-Apr-2011 Pending Ericka Thao RN Vitamin B-12 1000 MCG/ML Injection Solution Ordered: 23-May-2011 Pending Ericka Thao RN Vitamin B-12 1000 MCG/ML Injection Solution Ordered: 22-Jul-2011 Pending Hluszti FREIGHT AND PASSENGER AGENT, Carol Vitamin B-12 1000 MCG/ML Injection [...] for ER visit: note: (afib in [facility] from sat till wed). The [...] Patient has been compliant with instructions. [facility] End: 04-Apr-2015 23:22 t medication use: [...] SOB. Had a stress test with my milling supervisor and everything came back normal.), has decreased [...] weatching diet we talked about kyler catalan frame stripper she doesnt want to - we talked [...] had an MRI with doc up in [place] and was told that she had a [...] patient does not have durable power of tailer out. The patient has noticed nothing from the geriatic depression scale. Other providers contributing to the patient's care are milling supervisor, gastrologist an d other: (neurologist). Note for [...] medical issues: had damaris maneuver today at [facility] and helped some so far - her [...] it is helping- she hasnt been to [facility] yet encoruage , [ADDITIONAL REASON] Follow [...] bowel movements (having alot of problem with jelain ls, new problem for pt. 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
--- OUTSIDE RECORDS SUMMARY | 2018-02-18 04:50 | XMS RPT_ITS ---
:1940 Author Organization OHIP Support Name Relationship Address Phone MANNY HU Unavailable [address] + [place] [address] BLACK, Unavailable Unavailable + [place] [address] R Unavailable Unavailable Unavailable BLACK, MANNY Unavailable [address] + [place] [address] BLACK, Unavailable Unavailable + [place] [address] R Unavailable Unavailable Unavailable BLACK, MANNY Unavailable Unavailable + BLACK, Unavailable Unavailable Unavailable BLACK, COMFORT Unavailable Unavailable Unavailable BLACK, MANNY Unavailable Unavailable + BLACK, Unavailable Unavailable Unavailable BLACK COMFORT Unavailable Unavailable Unavailable BLACK, MANNY Unavailable [address] + [place] [address] BLACK, Unavailable Unavailable + [place] [address] R Unavailable Unavailable Unavailable BLACK, MANNY Unavailable [address] + [place] [address] BLACK, Unavailable Unavailable + [place] [address] R Unavailable Unavailable Unavailable BLACK, MANNY Unavailable [address] + [place] [address] BLACK, Unavailable Unavailable + [place] [address] R Unavailable Unavailable Unavailable BLACK, MANNY Unavailable [address] + [place] [address] BLACK, Unavailable Unavailable + [place] [address] R Unavailable Unavailable Unavailable BLACK, MANNY Unavailable [address] + [place] [address] BLACK, Unavailable Unavailable + [place] [address] R Unavailable Unavailable Unavailable BLACK, MANNY Unavailable [address] + [place] [address] BLACK, Unavailable Unavailable + [place] [address] R Unavailable Unavailable Unavailable BLACK, MANNY Unavailable [address] + [place] [address] BLACK, Unavailable Unavailable + [place] [address] R Unavailable Unavailable Unavailable BLACK, MANNY Unavailable [address] + [place] [address] BLACK, Unavailable Unavailable + [place] [address] R Unavailable Unavailable Unavailable BLACK, MANNY Unavailable [address] + [place] [address] BLACK, Unavailable Unavailable + [place] [address] R Unavailable Unavailable Unavailable BLACK, MANNY Unavailable [address] [facility] [address] + [place] [address] BLACK Unavailable Unavailable + [place] [address] R Unavailable Unavailable Unavailable BLACK, MANNY Unavailable Unavailable + BLACK, Unavailable Unavailable Unavailable BLACK, COMFORT Unavailable Unavailable Unavailable BLACK, MANNY Unavailable Unavailable + BLACK, Unavailable Unavailable Unavailable BLACK, COMFORT Unavailable Unavailable Unavailable BLACK, MANNY Unavailable Unavailable + BLACK, Unavailable Unavailable Unavailable BLACK, COMFORT Unavailable Unavailable Unavailable BLACK, MANNY Unavailable Unavailable + BLACK, Unavailable Unavailable Unavailable BLACK, COMFORT Unavailable Unavailable Unavailable BLACK, MANNY Unavailable Unavailable + BLACK, Unavailable Unavailable Unavailable BLACK, COMFORT Unavailable Unavailable Unavailable BLACK, MANNY Unavailable Unavailable + BLACK, Unavailable Unavailable Unavailable BLACK, COMFORT Unavailable Unavailable Unavailable BLACK, MANNY Unavailable [address] + [place] [address] BLACK, Unavailable Unavailable + [place] [address] R Unavailable Unavailable Unavailable BLACK, MANNY Unavailable [address] + [place] [address] BLACK, Unavailable Unavailable + [place] [address] R Unavailable Unavailable Unavailable BLACK, MANNY Unavailable [address] + [place] [address] BLACK, Unavailable Unavailable + [place] [address] R Unavailable Unavailable Unavailable BLACK, Unavailable [address] + [place] [address] BLACK, MANNY Unavailable [address] + [place] [address] R Unavailable Unavailable Unavailable BLACK, Unavailable [address] + [place] [address] BLACK, MANNY Unavailable [address] + [place] [address] R Unavailable Unavailable Unavailable BLACK, Unavailable [address] + [place] [address] BLACK, MANNY Unavailable [address] + [place] [address] R Unavailable Unavailable Unavailable BLACK, MANNY Unavailable [address] + [place] [address] BLACK, Unavailable Unavailable + [place] [address] R Unavailable Unavailable Unavailable BLACK, MANNY Unavailable Unavailable + BLACK, Unavailable Unavailable Unavailable BLACK, Unavailable [address] + [place] [address] BLACK, MANNY Unavailable [address] + [place] [address] R Unavailable Unavailable Unavailable BLACK, Unavailable [address] + [place] [address] BLACK, MANNY Unavailable [address] + [place] [address] R Unavailable Unavailable Unavailable BLACK, Unavailable [address] + [place] [address] BLACK, MANNY Unavailable [address] + [place] [address] R Unavailable Unavailable Unavailable BLACK, Unavailable [address] + [place] [address] BLACK, MANNY Unavailable [address] + [place] [address] R Unavailable Unavailable Unavailable BLACK, Unavailable [address] + [place] [address] BLACK, MANNY Unavailable [address] + [place] [address] R Unavailable Unavailable Unavailable BLACK, Unavailable [address] + [place] [address] BLACK, MANNY Unavailable [address] + [place] [address] R Unavailable Unavailable Unavailable BLACK, Unavailable [address] + [place] [address] BLACK, MANNY Unavailable [address] + [place] [address] R Unavailable Unavailable Unavailable BLACK, Unavailable [address] + [place] [address] BLACK, MANNY Unavailable [address] + [place] [address] R Unavailable Unavailable Unavailable BLACK, MIHCELLE Unavailable [address] + [place] [address] BLACK, MANNY Unavailable [address] + [place] [address] R Unavailable Unavailable Unavailable BLACK, Unavailable [address] + [place] [address] BLACK, MANNY Unavailable [address] + [place] [address] R Unavailable Unavailable Unavailable BLACK, Unavailable [address] + [place] [address] BLACK, MANNY Unavailable [address] + [place] [address] R Unavailable Unavailable Unavailable BLACK, Unavailable [address] + [place] [address] BLACK, MANNY Unavailable [address] + [place] [address] R Unavailable Unavailable Unavailable BLACK, Unavailable [address] + [place] [address] BLACK, MANNY Unavailable [address] + [place] [address] R Unavailable Unavailable Unavailable BLACK, Unavailable [address] + [place] [address] BLACK, MANNY Unavailable [address] + [place] [address] R Unavailable Unavailable Unavailable BLACK, Unavailable [address] + [place] [address] BLACK, MANNY Unavailable [address] + [place] [address] R Unavailable Unavailable Unavailable BLACK, Unavailable [address] + [place] [address] BLACK, MANNY Unavailable [address] + [place] [address] R Unavailable Unavailable Unavailable BLACK, Unavailable [address] + [place] [address] BLACK, MANNY Unavailable [address] + [place] [address] R Unavailable Unavailable Unavailable BLACK, Unavailable [address] + [place] [address] BLACK, MANNY Unavailable [address] + [place] [address] R Unavailable Unavailable Unavailable BLACK, Unavailable [address] + [place] [address] BLACK, MANNY Unavailable [address] + [place] [address] R Unavailable Unavailable Unavailable BLACK, Unavailable [address] + [place] [address] BLACK, MANNY Unavailable [address] + [place] [address] R Unavailable Unavailable Unavailable BLACK, Unavailable [address] + [place] [address] BLACK, MANNY Unavailable [address] + [place] [address] R Unavailable Unavailable Unavailable MICHELLE HU Unavailable [address] + [place] [address] YAMILET HUD Unavailable [address] + [place] [address] R Unavailable Unavailable Unavailable BLACKMANNY Unavailable [address] + [place] [address] R Unavailable Unavailable Unavailable R Unavailable Unavailable Unavailable MICHELLE HU Unavailable [address] + [place] [address] YAMILET HUD Unavailable [address] + [place] [address] R Unavailable Unavailable Unavailable YAMILET HUD Unavailable [address] + [place] [address] R Unavailable Unavailable Unavailable Care Team Providers Name Role Phone Annabella, Jonel Attending Unavailable Annabella, Jonel Referring Unavailable Bo, Nia Primary Care Unavailable Munira, Lui H Attending Unavailable Bo, Nia Referring Unavailable Bo, Nia Primary Care Unavailable Annabella, Downing Attending Unavailable Annabella, Jonel Referring Unavailable Bo, Nia Primary Care Unavailable Annabella, Jonel Referring Unavailable Tasha, Truong Admitting Unavailable Annabella, Downing Consulting Unavailable Sementi, Soraida Attending Unavailable Tasha, Truong Admitting Unavailable Annabella, Jonel Referring Unavailable Bo, Nia Primary Care Unavailable Tasha, Truong Consulting Unavailable White, Breann Attending Unavailable Tasha, Truong Admitting Unavailable Annabella, Jonel Attending Unavailable Annabella, Downing Referring Unavailable Bo, Nia Primary Care Unavailable Annabella, Downing Consulting Unavailable Jopperi, Farrukh Consulting Unavailable Tasha, Truong Admitting Unavailable Annabella, Downing Referring Unavailable Bo, Nia Primary Care Unavailable Annabella, Jonel Consulting Unavailable Sementi, Soraida Attending Unavailable Sementi, Soraida Consulting Unavailable Tasha, Truong Admitting Unavailable Annabella, Downing Attending Unavailable Annabella, Jonel Referring Unavailable Bo, Nia Primary Care Unavailable Annabella, Jonel Consulting Unavailable Sementi, Soraida Consulting Unavailable Tasha, Truong Admitting Unavailable Annabella, Jonel Attending Unavailable Annabella, Downing Referring Unavailable Bo, Nia Primary Care Unavailable Annabella, Jonel Consulting Unavailable Sementi, Soraida Consulting Unavailable Tasha, Truong Admitting Unavailable Kwame Motta D.O. Attending Unavailable Annabella, Downing Referring Unavailable Bo, Nia Primary Care Unavailable Annabella, Downing Consulting Unavailable Sementi, Soraida Consulting Unavailable Michelle Parsons Attending Unavailable Bo, Nia Referring Unavailable Tasha, Truong Admitting Unavailable Annabella, Downing Referring Unavailable Bo, Nia Primary Care Unavailable Annabella, Jonel Consulting Unavailable Farrukh Davis Attending Unavailable Sementi, Soraida Consulting Unavailable Tasha, Truong Admitting Unavailable Doyle Nye Attending Unavailable Annabella, Downing Referring Unavailable Bo, Nia Primary Care Unavailable Annabella, Downing Consulting Unavailable Sementi, Soraida Consulting Unavailable Sementi, Soraida Attending Unavailable Tasha, Truong Admitting Unavailable Annabella, Downing Referring Unavailable Bo, Nia Primary Care Unavailable Annabella, Jonel Consulting Unavailable Sementi, Soraida Consulting Unavailable Bo, Nia Primary Care Unavailable Natalya Napoles Attending Unavailable Nurse, Standard Attending Unavailable Bo, Nia Referring Unavailable Bo, Nia Primary Care Unavailable Sarkis Orozco Attending Unavailable Michelle Parsons Attending Unavailable Bo, Nia Referring Unavailable Bo, Nia Primary Care Unavailable Annabella, Downing Attending Unavailable Bo, Nia Referring Unavailable Bo, Nia Primary Care Unavailable Michelle Parsons Attending Unavailable Bo, Nia Referring Unavailable Bo, Nia Primary Care Unavailable Michelle Parsons Attending Unavailable Bo, Nia Referring Unavailable Bo, Nia Primary Care Unavailable Bo, Nai Primary Care Unavailable KempKodio Attending Unavailable Annabella, Jonel Attending Unavailable Annabella, Jonel Attending Unavailable Bo, Nia Referring Unavailable Bo, Nia Primary Care Unavailable Bo, Nia Primary Care Unavailable Jignesh Tello Attending Unavailable Annabella, Downing Attending Unavailable Annabella, Downing Referring Unavailable Bo, Nia Primary Care Unavailable Luda Magdaleno Attending Unavailable Bo, Nia Primary Care Unavailable Emery Allen Attending Unavailable Annabella, Jonel Attending Unavailable Bo, Nia Referring Unavailable Bo, Nia Primary Care Unavailable Annabella, Jonel Attending Unavailable Annabella, Jonel Referring Unavailable Annabella, Downing Attending Unavailable Annabella, Downing Referring Unavailable Bo, Nia Primary Care Unavailable Annabella, Downing Attending Unavailable Annabella, Downing Referring Unavailable Bo, Nia Primary Care Unavailable Annabella, Downing Consulting Unavailable Annabella, Downing Attending Unavailable Bo, Nia Referring Unavailable ParsonsMichelle M Attending Unavailable ParsonsMichelle M Referring Unavailable Bo, Nia Primary Care Unavailable Cebul, Lance Attending Unavailable Parsons, M Referring Unavailable Bo, Nia Primary Care Unavailable ParsonsMichelle solorzano M Consulting Unavailable Cebul, Lance Attending Unavailable Bo, Nia Referring Unavailable Julieth Mclaughlin Attending Unavailable Cebul, Lance Attending Unavailable Bo, Nia Primary Care Unavailable Cebul, Lance Attending Unavailable Bo, Nia Primary Care Unavailable Cebul, Lance Consulting Unavailable Bo, Nia Primary Care Unavailable MONIK LEAL Attending Unavailable Cebul, Lance Referring Unavailable Cebul, Lance Consulting Unavailable Cebul, Lance Attending Unavailable Cebul, Lance Referring Unavailable Bo, Nia Primary Care Unavailable Cebul, Lance Consulting Unavailable MONIK LEAL Consulting Unavailable Cebul, Lance Attending Unavailable Bo, Nia Referring Unavailable TaylaesaSherrie Attending Unavailable Taylaesa Sherrie Referring Unavailable Bo, Nia Primary Care Unavailable Annabella, Jonel Attending Unavailable Bo, Nia Referring Unavailable NEY, EVENS G Attending Unavailable NEY, EVENS G Referring Unavailable NEY, EVENS G Attending Unavailable ANNABELLA, JONEL S Referring Unavailable BO, NIA K Primary Care Unavailable NEY, EVENS G Admitting Unavailable NEY, EVENS G Attending Unavailable BO, NIA K Primary Care Unavailable CONSULT, VASCULAR Consulting Unavailable NEY, EVENS G Attending Unavailable NEY, EVENS G Referring Unavailable BO, NIA K Primary Care Unavailable NEY, EVENS G Attending Unavailable NEY, EVENS G Referring Unavailable BO, NIA K Primary Care Unavailable NEY, EVENS G Attending Unavailable NEY, EVENS G Referring Unavailable BO, NIA K Primary Care Unavailable NEY, EVENS G Attending Unavailable NEY, EVENS G Referring Unavailable BO, NIA K Primary Care Unavailable EL SAYBETSEY, HOSAM F Attending Unavailable BO, NIA K Referring Unavailable BO, NIA K Primary Care Unavailable EL SAYED, HOSAM F Attending Unavailable BO, NIA K Referring Unavailable BO, NIA K Primary Care Unavailable Bo DO, Nia Attending Unavailable Fast DO, Maylin A Referring Unavailable Bo DO, Nia Consulting Unavailable SCHWEIKERT, LANCE A Attending Unavailable ANNABELLA, JONEL S Referring Unavailable Fast, Alyssa A. 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 / Community E78.2(ICD-10) Hospital Repository 01/08/2018 Unknown Z95.1 - Presence of Annabella, Downing Active [facility] aortocoronary bypass Community graft / Hospital Z95.1(ICD-10) Repository 01/08/2018 Unknown Z98.890 - Other Annabella, Jonel Active [facility] specified Community postprocedural Hospital states / Repository Z98.890(ICD-10) 01/05/2018 Admitting Follow-up / 145() PAULA VALDIVIA, Active [place] [facility] diagnosis [facility] Repository 01/27/2018 Unknown R09.89 - Other Cebul, Lance Active [facility] specified symptoms Community and signs involving Hospital the circulatory and Repository respiratory systems / R09.89(ICD-10) 01/27/2018 Unknown 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, Lance Active [facility] unspecified site / Community I72.9(ICD-10) Hospital Repository 01/27/2018 Unknown I97.89 - Other Cebul, Lance Active [facility] postprocedural [facility] complications and Hospital disorders of the Repository circulatory system, not elsewhere classified / I97.89(ICD-10) 12/04/2017 Admitting Hypomagnesemia / EVENS BREWSTER Active [place] [facility] diagnosis E83.42(ICD-10) [facility] Repository 12/04/2017 Admitting Typical atrial NEY, EVENS G Active [facility] diagnosis flutter / [place] I48.3(ICD-10) [facility] Repository 12/04/2017 Admitting Paroxysmal atrial NEY, EVENS G Active [facility] diagnosis fibrillation / [place] I48.0(ICD-10) [facility] Repository 11/10/2017 Admitting New Patient / EVENS BREWSTER G Active [place] [facility] diagnosis [id number]() [facility] Repository 12/03/2017 Unknown I43 - Cardiomyopathy Annabella, Jonel Active [facility] in diseases Community classified elsewhere Hospital / I43(ICD-10) Repository 12/03/2017 Unknown I44.7 - Left Annabella, Downing Active [facility] bundle-branch block, Community unspecified / Hospital I44.7(ICD-10) Repository 10/02/2017 Unknown I25.10 - Annabella, Jonel Active [facility] Atherosclerotic Community heart disease of Hospital [place] coronary Repository artery without angina pectoris / I25.10(ICD-10) 05/26/2017 Unknown I48.91 - Unspecified Parsons, Active [facility] atrial fibrillation [facility] / I48.91(ICD-10) Hospital Repository 05/12/2017 Unknown I48.92 - Unspecified Sementi, Active [facility] atrial flutter / Soraida [facility] I48.92(ICD-10) Hospital Repository PROCEDURES PROCEDURES No Procedure Records FoundRESULTS RESULTS CARDIOLOGY VISIT Observed: 01/08/2018 Status: F Source: ALEJANDRA REPORT 10:04 AM [facility] REPOSITORY [facility] [address] [place], [place] [address]. [address] [place] [address] OFFICE VISIT Date of Service: 01/08/18 MR#: [id number] Acct: [id number] Name: COMFORT HU Rep #: [id number] : 1940 Provider: Jonel Winchester MD Age/Sex: 77/F Location: [facility] Status: Signed HPI [facility] Chief Complaint: Follow up visit Details: COMFORT HU, is a 77 F who presents to the office today for a follow-up visit. She is a lady with a history of coronary artery disease status post coronary artery bypass surgery in 2004. She had a left internal mammary artery to the left anterior descending artery and second diagonal branch. She has also been plagued with a history of atrial fibrillation with a rapid ventricular response rate. Initially she had not been anticoagulated due to previous neurosurgical procedures. More recently she has been put on Eliquis and has had frequent episodes of atrial fibrillation and flutter requiring recurrent DC cardioversions. She has been on amiodarone but this has not been able to control her rhythm. She was therefore sent to [facility] for catheter ablation and she underwent successful transseptal puncture using intracardiac ultrasound and wide circumferential ablation. Postoperatively she was continued on the aspirin as well as the apixaban and the amiodarone and metoprolol were discontinued. 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 She has seen the vascular surgeon for the above. Clinically she appears to doing well with no chest pain or shortness of breath or palpitations she has been compliant with her medications. Her physical exam demonstrates clear lung castro regular rate and rhythm with occasional ectopic beats. 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 Is patient in pain?: No Allergies No Known Allergies Allergy (Verified 01/08/18 09:34) Medications Albuterol IH (ProAir) [Proair Hfa (SP)Vent Pts] 2 puff INHALATION Q4H PRN PRN 08/24/17 [History Confirmed 01/08/18] Atorvastatin Calcium [Lipitor] 40 mg PO QHS 08/24/17 [History Confirmed 01/08/18] Cholecalciferol (Vitamin D3) [Vitamin D3] 6,000 unit PO DAILY 08/24/17 [History Confirmed 01/08/18] Fluticasone/Salmeterol [Advair 250/50 Mcg Diskus] 1 puff INHALATION BID 08/24/17 [History Confirmed 01/08/18] Furosemide 40 mg PO QHS 08/24/17 [History Confirmed 01/08/18] Gabapentin [Neurontin] 100 mg PO BIDCM 08/24/17 [History Confirmed 01/08/18] Insulin Detemir [Levemir] 19 unit SQ QHS 08/24/17 [History Confirmed 01/08/18] Lansoprazole [Prevacid] 30 mg PO DAILY 08/24/17 [History Confirmed 01/08/18] Linagliptin [Tradjenta] 5 mg PO DAILY 08/24/17 [History Confirmed 12/12/17] Metformin HCl 1,000 mg PO BID 08/24/17 [History Confirmed 01/08/18] Methscopolamine Casanova 5 mg PO BID 08/24/17 [History Confirmed 01/08/18] Montelukast [Singulair] 10 mg PO DAILY 08/24/17 [History Confirmed 01/08/18] Nitroglycerin [Nitrostat] 0.4 mg SUBLINGUAL Q5M PRN 08/24/17 [History Confirmed 01/08/18] Potassium Chloride [Klor-Con] 20 meq PO DAILY 08/24/17 [History Confirmed 01/08/18] apixaban 5 mg tablet 5 mg PO BID #180 tab 09/25/17 [Rx Confirmed 01/08/18] magnesium oxide 400 mg (241.3 mg magnesium) tablet 400 mg PO QDAY tab 09/25/17 [History Confirmed 01/08/18] aspirin 81 mg tablet,delayed release 81 mg PO DAILY 01/08/18 [History Confirmed 01/08/18] [facility] Medical History Pseudoaneurysm following procedure (Acute) Bruit (arterial) (Acute) Injury of femoral artery (Acute) Left bundle branch block (Chronic) New onset atrial flutter (Acute 09/29/17) 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) Cardiomyopathy in diseases classified elsewhere (Chronic) Paroxysmal atrial fibrillation (Chronic) Atherosclerotic heart disease of [place] coronary artery without angina pectoris (Chronic) HLD (hyperlipidemia) (Chronic) Hypertension (Chronic) Obesity (Chronic) Non-ST elevation myocardial infarction (NSTEMI) due to mismatch of myocardial oxygen supply and demand (Chronic) Asthma (Chronic) Benign paroxysmal positional vertigo (Chronic) Gout (Chronic) Meningioma (Chronic) 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, intractable, with status epilepticus (Chronic) Type 2 diabetes mellitus (Chronic) History of hysterectomy (Resolved) Atrial enlargement, left (Inactive) Surgical History History of radiofrequency ablation procedure for cardiac arrhythmia (Resolved 12/04/17) Presence of aortocoronary bypass graft (Chronic) History of cardioversion (Acute 09/29/17) History of colonoscopy [...] or lip swelling Cardio Chest Pain: No Palpitations: No Edema: None Muscle aches with walking: None Resp Respiratory: Negative for SOB at rest, SOB orthopnea\SOB lying down, Cough, paroxysmal nocturnal dyspnea or SOB with activity GI GI: Negative nausea, vomiting, heartburn, black,tarry stools or bright, red blood in stools : Negative for hematuria Musc Musc: Negative for balance problems, muscle aches/ myalgia, muscle weakness or joint pain Skin Skin: Negative non-healing lesions, unusual bruising or rash Neuro Neuro: Negative for weakness, frequent falls, headache(s), double vision, dizziness, lightheadedness, orthostatic symptoms, blurry vision or lack of coordination [place] Hematologic/Lymphatic: Negative for easy bruising or easy bleeding Endo Endo: Negative for fatigue, excessive sweating, cold intolerance, heat intolerance, increased thirst/drinking or hair loss Psych Psych: Negative for anxiety or depression Allergy Allergy/Immunology: Negative for throat swelling, Negative for tongue swelling, Negative for hives, Negative for rash, Negative for lip swelling Cardiology Exam Const Appearance: cooperative, healthy appearing, well developed, well groomed and no acute distress Nutritional Appearance: well nourished and average body habitus Orientation: alert, awake and oriented x3 Head Head: normal to inspection, normocephalic and atraumatic Ears: hearing grossly normal bilaterally and external ears normal Nose: external nose normal, nasal mucous membranes and turbinates normal, nares normal, septum normal, no nasal discharge Face and Sinus: face symmetric Mouth: oral mucosae normal, tongue normal, oropharynx normal and moist mucous membranes Teeth and gingiva: dentition normal Throat: posterior oropharynx normal, tonsils normal and uvula midline Eyes General: appearance normal, both eyes and all related structures Eyelids: eyelids normal Conjunctivae: conjunctivae normal Pupils: PERRL, normal by confrontation and accommodation normal EOM: EOM intact bilaterally Neck Neck: normal visual inspection, trachea midline and no JVD JVD: +5 [...] does have a history of paroxysmal atrial fibrillation. This has been ablated. She will however remain on the anticoagulation for now and will perform serial EKGs. She does have an underlying left bundle branch block as you remember. 2. Presence of aortocoronary bypass graft Z95.1 08-06-04 CABG x2 VILLAGRAN side to side to second Diagonal and end to side to Anterior Descending artery in Sequential fashion Plan She is status post carotid bypass surgery as noted above. She did undergo a cardiac catheterization within the last year which demonstrated no significant obstructive coronary disease. 3. Essential hypertension I10 Plan Her blood pressure has been under good control and I have asked her to continue observing this. If it goes higher we may need to put her on an FLORIAN inhibitor. 4. Mixed hyperlipidemia E78.2 Plan She does have a history of mixed hyperlipidemia and she remains on high intensity statin for the above. We will monitor repeat lipid profile at her next visit. 5. History of radiofrequency ablation procedure for cardiac arrhythmia Z98.890 RFA-Atrial Fib and atrial flutter @ [facility] Plan She does have a history of recent radiofrequency ablation for atrial tachyarrhythmia she appears to be maintaining sinus rhythm we will continue her on the anticoagulation for the time being. 6. Pseudoaneurysm following procedure I97.89; I72.9 Plan She did sustain unfortunately a pseudoaneurysm of her groin following the ablation procedure. She has been followed by the vascular surgeon here and will follow her carefully. I appreciate his input. Thank you for allowing me to participate in the care of your patient. 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) Coding Level of Care Code Off vis,est,level 4 Diagnoses Paroxysmal atrial fibrillation I48.0 Presence of aortocoronary bypass graft Z95.1 Essential hypertension I10 Hypertension type: essential hypertension Mixed hyperlipidemia E78.2 Hyperlipidemia type: mixed hyperlipidemia History of radiofrequency ablation procedure for cardiac arrhythmia Z98.890 Pseudoaneurysm following procedure I97.89; I72.9 Coding Level of Care Code Off vis,est,level 4 Diagnoses Paroxysmal atrial fibrillation I48.0 Presence of aortocoronary bypass graft Z95.1 Essential hypertension I10 Hypertension type: essential hypertension Mixed hyperlipidemia E78.2 Hyperlipidemia type: mixed hyperlipidemia History of radiofrequency ablation procedure for cardiac arrhythmia Z98.890 Pseudoaneurysm following procedure I97.89; I72.9 01/08/18 1004 <Electronically signed by Jonel Winchester MD> Date Jonel Winchester MD Cosigner Signature: Date (if applicable) CC: Nia Uriostegui DO CHEST PA AND LATERAL Observed: 01/06/2018 Status: F Source: [place] 12:33 PM [facility] REPOSITORY [facility] Imaging Services [address] [place] [address] Chest PA and Lateral MR#: [id number] Acct: [id number] Name: COMFORT HU Rep #: [id number] : 1940 F 77 From: Charly Almendarez DO PCP: Nia Uriostegui DO Status: REG CLI Study: Chest PA and Lateral Date of Exam: 01/06/18 Exam# [id number] Ordering Dr: Sherrie Amor FINISHING INSPECTOR-C STUDY: X-RAY CHEST REASON FOR EXAM: Female, 77 years old. Cough and bronchitis TECHNIQUE: PA and lateral views of the chest. COMPARISON: 10/05/2017 FINDINGS: There is hyperinflation of the lungs consistent with chronic obstructive [...] Lateral IMPRESSION: No acute cardiopulmonary disease Electronically Signed: Charly Almendarez DO at 11:36 EST Tel , Service support , CC: Sherrie Amor NP; Nia Uriostegui DO Contract Technical Writer: Signed SURGERY VISIT REPORT Observed: 12/19/2017 Status: F Source: [place] 2:53 PM [facility] REPOSITORY [facility] [address] [place] [address] OFFICE VISIT Date of Service: 12/19/17 MR#: [id number] Acct: [id number] Name: COMFORT HU Rep #: [id number] : 1940 Provider: Lance Ceron MD Age/Sex: 77/F Location: [facility] Status: Signed Intake Intake Visit Reasons: F/U 12/12 Thrombin Injection Chief Complaint: Follow up Allergies No Known Allergies Allergy (Verified 12/12/17 09:14) Medications Albuterol IH (ProAir) [Proair Hfa (SP)Vent Pts] 2 puff INHALATION Q4H PRN PRN 08/24/17 [History Confirmed 12/12/17] Atorvastatin Calcium [Lipitor] 40 mg PO QHS 08/24/17 [History Confirmed 12/12/17] Cholecalciferol (Vitamin D3) [Vitamin D3] 6,000 unit PO DAILY 08/24/17 [History Confirmed 12/12/17] Fluticasone/Salmeterol [Advair 250/50 Mcg Diskus] 1 puff INHALATION BID 08/24/17 [History Confirmed 12/12/17] Furosemide 40 mg PO QHS 08/24/17 [History Confirmed 12/12/17] Gabapentin [Neurontin] 100 mg PO BIDCM 08/24/17 [History Confirmed 12/12/17] Insulin Detemir [Levemir] 19 unit SQ QHS 08/24/17 [History Confirmed 12/12/17] Lansoprazole [Prevacid] 30 mg PO DAILY 08/24/17 [History Confirmed 12/12/17] Linagliptin [Tradjenta] 5 mg PO DAILY 08/24/17 [History Confirmed 12/12/17] Metformin HCl 1,000 mg PO BID 08/24/17 [History Confirmed 12/12/17] Methscopolamine Casanova 5 mg PO BID 08/24/17 [History Confirmed 12/12/17] Montelukast [Singulair] 10 mg PO DAILY 08/24/17 [History Confirmed 12/12/17] Nitroglycerin [Nitrostat] 0.4 mg SUBLINGUAL Q5M PRN 08/24/17 [History Confirmed 12/12/17] Potassium Chloride [Klor-Con] 20 meq PO DAILY 08/24/17 [History Confirmed 12/12/17] apixaban 5 mg tablet 5 mg PO BID #180 tab 09/25/17 [Rx Confirmed 12/12/17] magnesium oxide 400 mg (241.3 mg magnesium) tablet 400 mg PO QDAY tab 09/25/17 [History Confirmed 12/12/17] PFSH Medical History Pseudoaneurysm following procedure (Acute) Bruit (arterial) (Acute) Injury of femoral artery (Acute) Left bundle branch block (Chronic) New onset atrial flutter (Acute 09/29/17) 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) Cardiomyopathy in diseases classified elsewhere (Chronic) Paroxysmal atrial fibrillation (Chronic) Atherosclerotic heart disease of [place] coronary artery without angina pectoris (Chronic) HLD (hyperlipidemia) (Chronic) Hypertension (Chronic) Obesity (Chronic) Non-ST elevation myocardial infarction (NSTEMI) due to mismatch of myocardial oxygen supply and demand (Chronic) Asthma (Chronic) Benign paroxysmal positional vertigo (Chronic) Gout (Chronic) Meningioma (Chronic) 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, intractable, with status epilepticus (Chronic) Type 2 diabetes mellitus (Chronic) History of hysterectomy (Resolved) Atrial enlargement, left (Inactive) Surgical History History of radiofrequency ablation procedure for cardiac arrhythmia (Resolved 12/04/17) Presence of aortocoronary bypass graft (Chronic) History of cardioversion (Acute 09/29/17) History of colonoscopy [...] at home: Yes HPI HPI HPI: COMFORT HU, is a 77 F who presents to the office today for surgical follow-up regarding treatment of a right femoral post cardiac catheterization pseudoaneurysm as well as an additional AV fistula at the same site. On December 12, 2017 at the [facility] I performed a ultrasound-guided thrombin injection of the right femoral artery pseudoaneurysm. This was nicely successful. On December 15, 2017 I repeated the duplex ultrasound. The pseudoaneurysm at 1.2 x 1.9 cm remains thrombosed. Unfortunately with the pseudoaneurysm now thrombosed it highlights the fact that a secondary problem that occurred at the cardiac catheterization includes a AV fistula with pulsatile flow noted in the proximal right femoral vein. Exam Extrem Other: Slowly resolving ecchymosis right groin right lateral hip right medial thigh. Right groin has still a residual palpable pseudoaneurysm. It is not expansile. The right popliteal pulses 3+. Inspection reveals slight pitting edema bilateral lower extremities slightly more notable on the right than the left. Assessment AND Plan Problems 1. Pseudoaneurysm following procedure I97.89; I72.9 2. Injury of right femoral artery, subsequent encounter S75.001D Plan Currently I am quite pleased with the ultrasound-guided thrombin injection results of the right groin pseudoaneurysm. She still has a AV fistula. She does not appear to be acutely symptomatic from that. She will be receiving a 30-day monitor to assess the efficacy of her atrial fibrillation ablation. She is still on anticoagulant. She is diabetic. She has possibly a mild degree of neuropathy. She denies any previous history of foot sores or ulcerations. I proposed for her low-grade 15-20 mm thigh-high support hose bilaterally. She has been given strict instructions of the importance of daily foot inspection. She has been provided a prescription. At this point I am anticipating allowing ongoing resolution of the post cardiac catheterization changes of the right groin. I anticipate duplex imaging of the right groin 3 months and then office follow-up. If the fistula persists then would consider surgical repair if deemed pertinent based upon symptomatology. She has had an opportunity to ask and have questions answered. I very much appreciate the ongoing opportunity of assisting with her surgical care. Cc: Dr. Nia Uriostegui and Dr. Jonel Ceron M.D., F.A.C.S. Coding Level of Care Code Off vis,est,level 2 Diagnoses Pseudoaneurysm following procedure I97.89; I72.9 Injury of right femoral artery, subsequent encounter S75.001D Encounter type: subsequent encounter Laterality: right 12/19/17 1453 <Electronically signed by Lance Ceron MD> Date Lance Ceron MD Cosigner Signature: Date (if applicable) CC: Jonel Winchester MD; Nia Uriostegui DO ARTERIAL DUPLEX US, Observed: 12/15/2017 Status: F Source: [place] 5:02 PM [facility] REPOSITORY [facility] Cardiovascular Services [address] [place] [address] Art Duplex US Unilat Lower Ext 12/15/17 1350 MR#: [id number] Acct: [id number] Name: COMFORT HU Rep #: [id number] : 1940 77 From: Lance Ceron MD Attending Dr: JAYA GARZA Status: REG CLI Ordering Dr: Lance Ceron MD Date: 12/15/17 Location: [facility] Sex: F C Admitted: Reason For Study: F/U PSA thrombin injection Right Velocities RT SHAKE SPLITTER - .72 x .74 cm with a velocity of 153.0 cm/s CFV demonstrates normal color flow and slightly pulsatile doppler signal. Successfully thrombosed pseudoaneurysm now measuring 1.2 x 1.9 cm Prox SFA demonstrates turbulent flow with a velocity of 148.0 cm/s Prox FV demonstrates turbulent, pulsatile flow. Visible connection noted between Prox SFA and FV. Procedure Exam performed in department. Interpretation Summary 0.72 x 0.74 cm right common femoral artery with normal triphasic flow Persistently thrombosed right groin pseudoaneurysm measuring 1.24 x 1.93 cm Fistulous communication between the right superficial femoral artery and femoral vein now better identified. Ordering Physician: Lance Ceron Performed By: Sanaz Sheth RVT 12/15/171701 Date Lance Ceron MD CC: Nia Uriostegui DO; OUT OF TOWN DOCTOR; Lance Ceron MD Date Dictated: 12/15/17 1350 Date Transcribed: 12/15/171701 Contract Technical Writer: Signed BASIC METABOLIC Collected: 12/15/2017 Status: F Source: [place] PROFILE (BMP) 2:39 PM [facility] REPOSITORY TYPE CODE TESTS RESULT OUT OF RANGE REFERENCE UNITS LAB L501.0100 74-106 mg/dL High GLU 161 Result Comment: Fasting Glucose result greater than or equal to 126 mg/dL suggests DIABETES MELLITUS per A.D.A. criteria. Please note revised GLUCOSE reference range effective 2017. LAB L501.1000 7-18 mg/dL Normal BUN 12 LAB L501.1100 0.55-1.02 mg/dL High CREAT,SERUM 1.22 Result Comment: The validity of the calculated GFR AND GFRAA in patients over 70 years has not been determined. Clinical correlation is essential. LAB L501.1110 >60 mL/min Low EST GFR 45 Result Comment: Non- GFR Calc LAB L501.1115 >60 mL/min Low EST GFR - AA 55 Result Comment: GFR Calc LAB L501.1300 10-20 RATIO Low BUN/CRE 9.8 LAB L501.2200 8.5-10.1 mg/dL Low CA 8.3 LAB L501.5300 136-145 mmol/L Normal NA 139 LAB L501.5600 3.5-5.1 mmol/L Normal K 3.8 LAB L501.5900 98-107 mmol/L Normal CL 104 LAB L501.6100 21.0-32.0 mmol/L Normal CO2 26.0 LAB L501.6200 5-15 Normal GAP 9 Performed By: #### L500.2500 #### [facility] [address] [facility] [place], [address] ARTERIAL DUPLEX US, Observed: 12/12/2017 Status: F Source: [place] LIMITED 2:05 PM [facility] REPOSITORY [facility] Cardiovascular Services [address] [place] [address] Art Duplex US Unilat Lower Ext 12/12/17 1304 MR#: [id number] Acct: [id number] Name: COMFORT HU Rep #: [id number] : 1940 77 From: Lance Ceron MD Attending Dr: Lance Ceron MD Status: REG CLI Ordering Dr: Lance Ceron MD Date: 12/12/17 Location: [facility] Sex: F C Admitted: Reason For Study: RT Groin pseudoanerysm thrombin injection Right Velocities Rt groin pseudoaneurysm successfully thrombosed s/p thrombin injection. Normal color flow and doppler signal SHAKE SPLITTER and FV. Procedure Exam performed in department. Interpretation Summary Successful thrombosis right femoral pseudoaneurysm Ordering Physician: Lance Ceron Performed By: Sanaz Sheth RVT 12/12/17 1404 Date Lance Ceron MD CC: Nia Uriostegui DO; Lance Ceron MD Date Dictated: 12/12/17 1304 Date Transcribed: 12/12/17 1404 Contract Technical Writer: Signed OPERATIVE REPORT Observed: 12/12/2017 Status: F Source: [place] 2:03 PM [facility] REPOSITORY [facility] Medical Records Department [address] [place] [address] Operative Report 12/12/17 1359 MR#: [id number] Acct: [id number] Name: COMFORT HU Rep #: [id number] : 1940 77 From: Lance Ceron MD PCP: Nia Uriostegui DO Status: REG CLI Y Location: [facility] Problem List (1) Pseudoaneurysm following procedure Status: Acute Report of Operation Date of Procedure: 12/12/17 Pre-Operative Diagnosis: Pseudoaneurysm right femoral artery Post-Operative Diagnosis: Same Surgery/Procedure Performed:: Ultrasound-guided thrombin injection right femoral artery pseudoaneurysm Description of Surgical Findings:: Timeout and informed consent was obtained. 77-year-old female was taken to the noninvasive vascular lab. She was placed initially supine on the table and then gentle Trendelenburg position to assist her with holding up her pannus. The right groin was sterilely prepped and draped. Sterile transducer was utilized on the ultrasound probe. Sterile gel was used. Ultrasound was performed demonstrating the pseudoaneurysm in the right groin. 1% lidocaine was used as local anesthetic. A total of 2 cc was injected. I initially tried a 25-gauge needle to access the pseudoaneurysm but then converted [...] foot pulses remained unchanged. The patient had absolutely no discomfort and tolerated the procedure well. She will now be observed for 2 hours. No apparent complications. Images demonstrate the initial right femoral pseudoaneurysm with successful thrombosis and complete lack of flow subsequent to the injection Lance Ceron M.D., F.A.C.S. Type of Anesthesia:: Local 12/12/17 1403 <Electronically signed by Lance Ceron MD> Date Lance Ceron MD CC: Nia Uriostegui DO; Lance Ceron MD Signed SURGERY VISIT REPORT Observed: 12/12/2017 Status: F Source: [place] 9:40 AM [facility] [address] [place] [address] OFFICE VISIT Date of Service: 12/12/17 MR#: [id number] Acct: [id number] Name: [address] Rep #: [id number] : 1940 Provider: Lance Ceron MD Age/Sex: 77/F Location: [facility] Status: Signed Intake Intake Visit Reasons: Pseudoaneurysm Chief Complaint: Follow up Allergies No Known Allergies Allergy (Verified 12/12/17 09:14) Medications Albuterol IH (ProAir) [Proair Hfa (SP)Vent Pts] 2 puff INHALATION Q4H PRN PRN 08/24/17 [History Confirmed 12/12/17] Atorvastatin Calcium [Lipitor] 40 mg PO QHS 08/24/17 [History Confirmed 12/12/17] Cholecalciferol (Vitamin D3) [Vitamin D3] 6,000 unit PO DAILY 08/24/17 [History Confirmed 12/12/17] Fluticasone/Salmeterol [Advair 250/50 Mcg Diskus] 1 puff INHALATION BID 08/24/17 [History Confirmed 12/12/17] Furosemide 40 mg PO QHS 08/24/17 [History Confirmed 12/12/17] Gabapentin [Neurontin] 100 mg PO BIDCM 08/24/17 [History Confirmed 12/12/17] Insulin Detemir [Levemir] 19 unit SQ QHS 08/24/17 [History Confirmed 12/12/17] Lansoprazole [Prevacid] 30 mg PO DAILY 08/24/17 [History Confirmed 12/12/17] Linagliptin [Tradjenta] 5 mg PO DAILY 08/24/17 [History Confirmed 12/12/17] Metformin HCl 1,000 mg PO BID 08/24/17 [History Confirmed 12/12/17] Methscopolamine Casanova 5 mg PO BID 08/24/17 [History Confirmed 12/12/17] Montelukast [Singulair] 10 mg PO DAILY 08/24/17 [History Confirmed 12/12/17] Nitroglycerin [Nitrostat] 0.4 mg SUBLINGUAL Q5M PRN 08/24/17 [History Confirmed 12/12/17] Potassium Chloride [Klor-Con] 20 meq PO DAILY 08/24/17 [History Confirmed 12/12/17] apixaban 5 mg tablet 5 mg PO BID #180 tab 09/25/17 [Rx Confirmed 12/12/17] magnesium oxide 400 mg (241.3 mg magnesium) tablet 400 mg PO QDAY tab 09/25/17 [History Confirmed 12/12/17] metoprolol tartrate 50 mg tablet 50 mg PO BID #180 tab 10/08/17 [Rx Confirmed 12/12/17] amiodarone 200 mg tablet 200 mg PO TID #90 tab 10/28/17 [Rx Confirmed 12/12/17] [facility] Medical History Pseudoaneurysm following procedure (Acute) Bruit (arterial) (Acute) Injury of femoral artery (Acute) Left bundle branch block (Chronic) New onset atrial flutter (Acute 09/29/17) 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) Cardiomyopathy in diseases classified elsewhere (Chronic) Paroxysmal atrial fibrillation (Chronic) Atherosclerotic heart disease of [place] coronary artery without angina pectoris (Chronic) HLD (hyperlipidemia) (Chronic) Hypertension (Chronic) Obesity (Chronic) Non-ST elevation myocardial infarction (NSTEMI) due to mismatch of myocardial oxygen supply and demand (Chronic) Asthma (Chronic) Benign paroxysmal positional vertigo (Chronic) Gout (Chronic) Meningioma (Chronic) 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, intractable, with status epilepticus (Chronic) Type 2 diabetes mellitus (Chronic) History of hysterectomy (Resolved) Atrial enlargement, left (Inactive) Surgical History Presence [...] at home: Yes HPI HPI HPI: COMFORT HU, is a 77 F who presents to the office today for surgical consultation regarding a right groin pseudoaneurysm. The patient is referred by Dr. Jonel Winchester. A written copy of my surgical consult and recommendations will be returned to him The patient had cardiac ablation for atrial fibrillation performed at [facility] per Dr. [place]. Patient is about 10 days out. She complained of swelling and pain. She presented to Dr. Richmond's office yesterday. A ultrasound was obtained. This demonstrates a 2 cm pseudoaneurysm in the right groin but there is additional concern for possible AV fistula. The patient continues to complain of soreness and tightness and firmness. Exam Extrem Other: The right groin is ecchymotic. There is diffuse induration, no erythema, no drainage, approximately 5 or 6 puncture sites are noted. No current drainage. Right popliteal is difficult to palpate due to body habitus and swelling. Approximately 1+. Right DP is 3+. Right PT difficult to palpate due to edema Assessment AND Plan Problems 1. Pseudoaneurysm following procedure I97.89; I72.9 Plan 77-year-old female. She is now 12 days status post right groin access for atrial fibrillation cardiac ablation. She is on Eliquis and aspirin. These have been held as of last night. She definitely has a right groin pseudoaneurysm. There may be a small AV fistula. The patient needs to continue her anticoagulation as discussed with Dr. Jonel Winchester. With the patient's son present I had an extensive discussion with the patient regarding treatment options. I do not believe that if there is a small fistula present that requires any type of urgent intervention at this setting. She is tender however I do believe that the pseudoaneurysm requires treatment. I do not believe that it will spontaneously thrombosed particularly with her ongoing anticoagulation. I proposed for her an ultrasound-guided thrombin injection of the right groin pseudoaneurysm. In great detail I discussed the technique, benefits, risks, alternatives. Absolutely no guarantees of success have been offered. We have discussed the additional potential risk of arteriovenous embolization. She has had an opting to ask and have questions answered. I anticipate a low volume treatment. The patient is aware that repeat treatment may be required. The patient can then be followed conservatively. Future follow- up with duplex to inspect for possible residual fistula can be pursued as well. Cc: Dr. Jonel Ceron M.D., F.A.C.S. Coding Level of Care Code Prob focused, straight fwd Diagnoses Pseudoaneurysm following procedure I97.89; I72.9 12/12/17 0940 <Electronically signed by Lance Ceron MD> Date Lance Ceron MD Cosigner Signature: Date (if applicable) CC: Jonel Winchester MD OFFICE VISIT REPORT Observed: 12/12/2017 Status: F Source: [place] 8:25 AM [facility] [place] [address] OFFICE VISIT Date of Service: 12/11/17 MR#: [id number] Acct: [id number] Patient: COMFORT HU Rep #: [id number] : 1940 Provider: Jonel Winchester MD Age/Sex: 77/F Location: [facility] Status: Signed Intake Intake Visit Reasons: PER HELEN, WOUND CK Chief Complaint: Follow up Allergies No Known Allergies Allergy (Verified 10/08/17 10:23) Medications Albuterol IH (ProAir) [Proair Hfa (SP)Vent Pts] 2 puff INHALATION Q4H PRN PRN 08/24/17 [History Confirmed 10/31/17] Atorvastatin Calcium [Lipitor] 40 mg PO QHS 08/24/17 [History Confirmed 10/31/17] Cholecalciferol (Vitamin D3) [Vitamin D3] 6,000 unit PO DAILY 08/24/17 [History Confirmed 10/31/17] Fluticasone/Salmeterol [Advair 250/50 Mcg Diskus] 1 puff INHALATION BID 08/24/17 [History Confirmed 10/31/17] Furosemide 40 mg PO QHS 08/24/17 [History Confirmed 10/31/17] Gabapentin [Neurontin] 100 mg PO BIDCM 08/24/17 [History Confirmed 10/31/17] Insulin Detemir [Levemir] 19 unit SQ QHS 08/24/17 [History Confirmed 10/31/17] Lansoprazole [Prevacid] 30 mg PO DAILY 08/24/17 [History Confirmed 10/31/17] Linagliptin [Tradjenta] 5 mg PO DAILY 08/24/17 [History Confirmed 10/31/17] Metformin HCl 1,000 mg PO BID 08/24/17 [History Confirmed 10/31/17] Methscopolamine Casanova 5 mg PO BID 08/24/17 [History Confirmed 10/31/17] Montelukast [Singulair] 10 mg PO DAILY 08/24/17 [History Confirmed 10/31/17] Nitroglycerin [Nitrostat] 0.4 mg SUBLINGUAL Q5M PRN 08/24/17 [History Confirmed 10/31/17] Potassium Chloride [Klor-Con] 20 meq PO DAILY 08/24/17 [History Confirmed 10/31/17] apixaban 5 mg tablet 5 mg PO [...] Confirmed 10/31/17] Assessment AND Plan Orders Orders: Nursing Note Pt had ablation last week, and now notices a large lump below insertion site. She also said she is very bruised. I asked her to come in to assess. There is extensive purple/red ecchymosis over top of right thigh circumferentially to about half [...] Some pulsation but not necessarily bruit heard with auscultation of site. Pt does have discomfort.Michelle Parsons ordered scan to make sure there is no AV fistula at site. 12/12/17 0825 <Electronically signed by Jonel Winchester MD> Date Jonel Winchester MD Cosigner Signature: Date (if applicable) CC: Helen Brito ARTERIAL DUPLEX US Observed: 12/11/2017 Status: F Source: ALEJANDRA -MESSI EXTREM 6:19 PM [facility] REPOSITORY [facility] Cardiovascular Services [address] [place] [address] Art Duplex US Bilat Lower Ext 12/11/17 1408 MR#: [id number] Acct: [id number] Name: COMFORT HU Rep #: [id number] : 1940 77 From: Lance Ceron MD Attending Dr: Michelle Parsons Status: REG CLI Ordering Dr: Jonel Winchester MD Date: 12/11/17 Location: [facility] Sex: F C Admitted: Reason For Study: Rt groin pain/ecchymosis - Right Velocities Left Velocities RT SHAKE SPLITTER - 1.2 x 1.2 cm with a velocity of 159.0 LT SHAKE SPLITTER - .88 x .83 cm with a [...] cm Right groin 2 x 2 cm pseudoaneurysm Pulsitile flow right femoral vein at the level of the pseudoaneurysm suspicious for an arteriovenous fistula at this level. Left common femoral artery 0.88 x -.83cm and normal flow. Ordering Physician: Jonel Winchester Referring Physician: Michelle Parsons Performed By: Sanaz Sheth RVT 12/11/17 1819 Date Lance Ceron MD CC: Jonel Winchester MD; Nia Parsons Date Dictated: 12/11/171407 Date Transcribed: 12/11/171818 Contract Technical Writer: Signed HGB & HCT Collected: 12/05/2017 Status: F Source: [facility] 4:42 PM [facility] REPOSITORY TYPE CODE TESTS RESULT OUT OF REFERENCE UNITS RANGE LAB HGB 11.2-15.7 g/dL Low Hemoglobin 9.2 LAB HCT 34.1-44.9 % Low Hematocrit 29.6 Performed By: #### SADIA, CHM6 #### [place] [address] CHEM 6 Collected: 12/05/2017 Status: F Source: [facility] 4:42 PM [facility] REPOSITORY TYPE CODE TESTS RESULT OUT OF REFERENCE UNITS RANGE LAB BUN 7-22 mg/dL BUN 21 LAB NA 133-143 mmol/L Sodium 136 LAB K 3.5-5.0 mmol/L Potassium 4.2 LAB CL 98-108 mmol/L Chloride 101 LAB CO2 22-30 mmol/L Carbon Dioxide 22 LAB CREA 0.50-1.20 mg/dL High Creatinine 1.33 LAB GAP 7-17 mmol/L Anion Gap 17 LAB BC BUN/CREA Ratio 16 LAB GFR >60 mL/min/1.73 Low sqM Est GFR,non 39 Gabonese LAB GFRA >60 mL/min/1.73 Low sqM Est GFR, 47 Performed By: #### SADIA, CHM6 #### [place] [address] *POC GLUCOSE BATTERY Collected: 12/05/2017 Status: F Source: [facility] 4:03 PM [facility] REPOSITORY TYPE CODE TESTS RESULT OUT OF REFERENCE UNITS RANGE LAB GLUP 70-99 mg/dL High Glucose (poc 155 device) Result Comment: No BRAVE per RN: PATIENT TYPE LAB PCSTYP *POC Capillary SAMPLE TYPE Blood *POC GLUCOSE BATTERY Collected: 12/05/2017 Status: F Source: [facility] 11:16 AM [facility] REPOSITORY TYPE CODE TESTS RESULT OUT OF REFERENCE UNITS RANGE LAB GLUP 70-99 mg/dL High Glucose (poc 141 device) Result Comment: No BRAVE per RN: PATIENT TYPE LAB PCSTYP *POC Capillary SAMPLE TYPE Blood CT HEAD WITHOUT Observed: 12/05/2017 Status: F Source: [facility] CONTRAST 8:50 AM [facility] REPOSITORY EXAM: CT HEAD WITHOUT CONTRAST, 12/04/2017 10:44 PM COMPARISON: None. CLINICAL INDICATIONS: 77 years Female TIA, initial screening; RELEVANT CLINICAL HISTORY: TECHNIQUE: A series of transaxial computerized tomographic images are obtained from base of skull to vertex without intravenous contrast. Axial whole-head and thin section posterior fossa slices are provided. Reformats: Sagittal and coronal. FINDINGS: Postsurgical changes are noted related to right pterional craniectomy/craniotomy. There is underlying focal encephalomalacia within the right anterolateral temporal lobe. Wedge-shaped encephalomalacia is noted within the left lateral cerebellum. Remainder of the brain appears grossly unremarkable, with grossly preserved león-white matter differentiation. No evidence for acute intracranial hemorrhage, mass effect or midline shift. There is no extracerebral collection. Ventricles are normal in size and configuration for patient's stated age. Visualized sinuses show no air fluid levels. Visualized orbits are unremarkable. IMPRESSION: No acute intracranial hemorrhage, or acute large territory infarct on CT. Surgical changes of right pterional craniectomy. Encephalomalacia in the right temporal lobe and left lateral cerebellum consistent with sequela of remote insult. & HCT Collected: 12/05/2017 Status: F Source: [facility] 8:08 AM [facility] REPOSITORY TYPE CODE TESTS RESULT OUT OF REFERENCE UNITS RANGE LAB HGB 11.2-15.7 g/dL Low Hemoglobin 8.9 LAB HCT 34.1-44.9 % Low Hematocrit 28.8 Performed By: #### HH #### [facility] [address] [place] [address] [place] [address] *POC GLUCOSE BATTERY Collected: 12/05/2017 Status: F Source: [facility] 7:25 AM [facility] REPOSITORY TYPE CODE TESTS RESULT OUT OF REFERENCE UNITS RANGE LAB GLUP 70-99 mg/dL High Glucose (poc 136 device) Result Comment: No BRAVE per RN: PATIENT TYPE LAB PCSTYP *POC Capillary SAMPLE TYPE Blood HEMOGRAM (CBC AND Collected: 12/05/2017 Status: F Source: [facility] PLATELET) 2:43 AM [facility] REPOSITORY TYPE CODE TESTS RESULT OUT OF REFERENCE UNITS RANGE LAB WBC 3.98-10.04 K/uL WBC Count 9.55 LAB RBC 3.93-5.22 M/uL Low RBC Count 3.52 LAB HGB 11.2-15.7 g/dL Low Hemoglobin 9.1 LAB HCT 34.1-44.9 % Low Hematocrit 30.0 LAB MCV 79.4-94.8 fL Mean Cell Volume 85.2 LAB MCH 25.6-32.2 pg Mean Cell Hgb 25.9 LAB MCHC 32.2-35.5 g/dL Low Mean Cell Hgb alert Conc 30.3 LAB RDW 11.7-14.4 % RBC High Distribution 15.1 LAB PLT 182-369 K/uL Platelet Count 208 LAB MPV 9.4-12.3 fL Mean Platelet Volume 10.9 LAB NRBC 0.0-0.2 /100 WBC NUCLEATED RBC 0.0 Performed By: #### HEMOGC, CHM6, MGO #### [facility] [address] [place] [address] [address] [place] [address] CHEM 6 Collected: 12/05/2017 Status: F Source: [facility] 2:43 AM [facility] REPOSITORY TYPE CODE TESTS RESULT OUT OF REFERENCE UNITS RANGE LAB BUN 7-22 mg/dL BUN 21 LAB NA 133-143 mmol/L Sodium 137 LAB K 3.5-5.0 mmol/L Potassium 4.4 LAB CL 98-108 mmol/L Chloride 102 LAB CO2 22-30 mmol/L Carbon Dioxide 23 LAB CREA 0.50-1.20 mg/dL High Creatinine 1.30 LAB GAP 7-17 mmol/L Anion Gap 16 LAB BC BUN/CREA Ratio 16 LAB GFR >60 mL/min/1.73 Low sqM Est GFR,non 40 Gabonese LAB GFRA >60 mL/min/1.73 Low sqM Est GFR, 48 Performed By: #### HEMOGC, CHM6, MGO #### [facility] [address] [place] [address] [facility] [address] [place] [address] MAGNESIUM Collected: 12/05/2017 Status: F Source: [facility] 2:43 AM [facility] REPOSITORY TYPE CODE TESTS RESULT OUT OF REFERENCE UNITS RANGE LAB MG 1.6-2.6 mg/dL Low Magnesium 1.4 Performed By: #### HEMOGC, CHM6, MGO #### [facility] [address] [place] [address] [facility] [address] [place] [address] *POC GLUCOSE BATTERY Collected: 12/04/2017 Status: F Source: [facility] 8:49 PM [facility] REPOSITORY TYPE CODE TESTS RESULT OUT OF REFERENCE UNITS RANGE LAB GLUP 70-99 mg/dL High Glucose (poc 176 device) Result Comment: No BRAVE per RN: PATIENT TYPE LAB PCSTYP *POC Capillary SAMPLE TYPE Blood *POC GLUCOSE BATTERY Collected: 12/04/2017 Status: F Source: [facility] 5:04 PM [facility] REPOSITORY TYPE CODE TESTS RESULT OUT OF REFERENCE UNITS RANGE LAB GLUP 70-99 mg/dL High Glucose (poc 182 device) Result Comment: No BRAVE per RN: PATIENT TYPE LAB PCSTYP *POC Capillary SAMPLE TYPE Blood CT CARDIAC PULMONARY Observed: 12/04/2017 Status: F Source: [facility] VENOGRAM 2:30 PM [facility] REPOSITORY [facility] CT Report Name: COMFORT HU : 1940 Scan Date: 2017-12-03 16:42:15 Signed by Valeria La ([id number]) 08:31:23. SUMMARY 77 y/o female with atrial arrhythmia. PULMONARY VEIN CTA ?Five pulmonary veins drain into the left atrium with the following ostial dimensions: RUPV 26 x 24 mm; RMPV 10 x 9 mm; RLPV 16 x 14 mm; LUPV 19 x 18 mm; LLPV 27 x 25 mm. No evidence of LA/BHARTI thrombus. Coronary, aortic and mitral annular calcifications. Dilated MPA measuring 43 mm. Multiple bilateral pulmonary nodules. CRITICAL RESULT: No STUDY QUALITY: Excellent SCAN INFO GENERAL SETUP DATE OF EVENT: 2017-12-03 00:00:00 TYPE: Clinical INPATIENT: No INCOMPLETE SCAN: No SCAN COVERAGE ZONE: pulmonary veins ECG GATING TECHNIQUE: Prospective REFERRING PHYSICIAN: 1) Evens Brewster MD ATTENDING PHYSICIAN: Valeria La MD FELLOW: Mechelle Sneed TECHNOLOGIST: Monik PATRICIO (R) (CT) CONTRAST AGENT TYPE: Omnipaque 350 IODINE CONCENTRATION: 350 mg/ml DOSE: 70 ml RATE: 4 ml/s ROUTE: IV BOLUS TECHNIQUE: Biphasic SCAN DELAY TIME METHOD: smart prep CREATININE DATE: 2017-12-03 00:00:00 SERUM CREATININE: 1.32 sCr GFR: 41.48 ml/min/1.73m^2 DLP: 464.66 mGy-cm VITALS HEIGHT: 65 in HEIGHT: 165.1 cm WEIGHT: 203 lbs WEIGHT: 92.08 kgs BSA: 1.99 m^2 VITALS SYSTOLIC BP: 161 mmHg DIASTOLIC BP: 71 mmHg BASELINE HR: 56 BPM HEART RHYTHM: Sinus Rhythm INDICATION(S) FOR SCAN REASON(S) FOR SCAN: Atrial arrhythmia, Pulmonary veins (evaluate) BILLING APPROPRIATENESS OF ORDER: Appropriate BILLING Patient Account [id number] CPT Codes 34115 ICD10 Codes I48.0, [ , ]I48.3 VASCULAR EP PROCEDURE - Observed: 12/04/2017 Status: F Source: [facility] EPS/ABLATION/DEVICE 1:07 PM [facility] REPOSITORY The patient has recurrent persistent atrial fibrillation despite medical therapy and is here for catheter ablation. The patient arrived in Sinus bradycardia, and underwent successful transseptal punctu re utilizing intracardiac ultrasound guidance and then completed map of left atrium and pulmonary veins. Wide area circumferential ablation was performed successfully using RF ablation energy and without complications, with confirmation of PV isolation with the circular mapping catheter for management of atrial fibrillation.. RF linear lesions outside the PVs were completed at the roof, posterior for management of atrial fibrillation. Atrial flutter from the Right atria was also ablated for clinical episodes of atrial flutter. Successful completion of bidirectional conduction block with RF ablation between TV and IVC in cavo-tricuspid isthmus to manage right atrial flutter Post ablation, there was abnormal SA (CSNRT = 2630) and mildly prolonged AV (AVBCL = 530ms) and HV (HV = 65ms) function and no inducible SVT IV lasix to be given x 1 about 3-4 hours post procedure PLAN: 1) RESUME ASA AND APIXABAN AND CONTINUE UNTIL THE PATIENT IS SEEN IN FOLLOW UP CLINIC; 2) ROUTINE POST RFA AFIB MONITORING AND FOLLOW UP; 3) NEXIUM X 30 DAYS THEN STOP; 4) STOP AMIODARONE AND METOPROLOL 5) LIKELY WILL REQUIRE PERMANENT PACEMAKER *ACT* LOW RANGE, Collected: 12/04/2017 Status: F Source: [facility] POC 12:17 PM [facility] REPOSITORY TYPE CODE TESTS RESULT OUT OF REFERENCE UNITS RANGE LAB ACTLR 89-169 sec High *ACT* LOW 368 RANGE, POC *ACT* LOW RANGE, Collected: 12/04/2017 Status: F Source: [facility] POC 11:55 AM [facility] REPOSITORY TYPE CODE TESTS RESULT OUT OF REFERENCE UNITS RANGE LAB ACTLR 89-169 sec High *ACT* LOW >400 RANGE, POC *ACT* LOW RANGE, Collected: 12/04/2017 Status: F Source: [facility] POC 11:12 AM [facility] REPOSITORY TYPE CODE TESTS RESULT OUT OF REFERENCE UNITS RANGE LAB ACTLR 89-169 sec High *ACT* LOW >400 RANGE, POC *POC GLUCOSE BATTERY Collected: 12/04/2017 Status: F Source: [facility] 10:55 AM [facility] REPOSITORY TYPE CODE TESTS RESULT OUT OF REFERENCE UNITS RANGE LAB GLUP 70-99 mg/dL High Glucose (poc 130 device) Result Comment: No BRAVE per RN: PATIENT TYPE LAB PCSTYP *POC SAMPLE TYPE Venous *ACT* LOW RANGE, Collected: 12/04/2017 Status: F Source: [facility] POC 10:52 AM [facility] REPOSITORY TYPE CODE TESTS RESULT OUT OF REFERENCE UNITS RANGE LAB ACTLR 89-169 sec High *ACT* LOW 299 RANGE, POC *ACT* LOW RANGE, Collected: 12/04/2017 Status: F Source: [facility] POC 10:30 AM [facility] REPOSITORY TYPE CODE TESTS RESULT OUT OF REFERENCE UNITS RANGE LAB ACTLR 89-169 sec High *ACT* LOW 313 RANGE, POC *ACT* LOW RANGE, Collected: 12/04/2017 Status: F Source: [facility] POC 10:07 AM [facility] REPOSITORY TYPE CODE TESTS RESULT OUT OF REFERENCE UNITS RANGE LAB ACTLR 89-169 sec High *ACT* LOW >400 RANGE, POC HEMOGRAM (CBC AND Collected: 12/04/2017 Status: F Source: [facility] PLATELET) 7:35 AM [facility] REPOSITORY TYPE CODE TESTS RESULT OUT OF REFERENCE UNITS RANGE LAB WBC 3.98-10.04 K/uL WBC Count 6.74 LAB RBC 3.93-5.22 M/uL RBC Count 4.05 LAB HGB 11.2-15.7 g/dL Low Hemoglobin 10.7 LAB HCT 34.1-44.9 % Hematocrit 34.1 LAB MCV 79.4-94.8 fL Mean Cell Volume 84.2 LAB MCH 25.6-32.2 pg Mean Cell Hgb 26.4 LAB MCHC 32.2-35.5 g/dL Low Mean Cell Hgb Conc 31.4 LAB RDW 11.7-14.4 % RBC High Distribution 14.9 LAB PLT 182-369 K/uL Platelet Count 231 LAB MPV 9.4-12.3 fL Mean Platelet Volume 11.1 LAB NRBC 0.0-0.2 /100 WBC NUCLEATED RBC 0.0 Performed By: #### HEMTED, M7 #### [facility] [address] [place] [id number] [place] [address] [place] [address] CHEM 7 Collected: 12/04/2017 Status: F Source: [facility] 7:35 AM [facility] REPOSITORY TYPE CODE TESTS RESULT OUT OF REFERENCE UNITS RANGE LAB BUN 7-22 mg/dL BUN 20 LAB NA 133-143 mmol/L Sodium 138 LAB K 3.5-5.0 mmol/L Potassium 4.0 LAB CL 98-108 mmol/L Chloride 101 LAB CO2 22-30 mmol/L Carbon Dioxide 27 LAB GLUC 70-99 mg/dL Glucose High 153 LAB CREA 0.50-1.20 mg/dL Creatinine 1.12 LAB GAP 7-17 mmol/L Anion Gap 14 LAB BC BUN/CREA Ratio 18 LAB OSMC 278-305 mOsm/kg Osmolality 295 (Calc) LAB GFR >60 mL/min/1.73 Low sqM Est GFR,non 47 Gabonese LAB GFRA >60 mL/min/1.73 Low sqM Est GFR, 57 Performed By: #### HEMTED, [facility] #### [facility] [address] [place] [address] [place] [address] *POC GLUCOSE BATTERY Collected: 12/04/2017 Status: F Source: [facility] 6:26 AM [facility] REPOSITORY TYPE CODE TESTS RESULT OUT OF REFERENCE UNITS RANGE LAB GLUP 70-99 mg/dL High Glucose (poc 151 device) Result Comment: Notified RNread back Meets BRAVE per RN: PATIENT TYPE LAB PCSTYP *POC SAMPLE TYPE Venous PT*PTT Collected: 12/04/2017 Status: F Source: [facility] 6:08 AM [facility] REPOSITORY TYPE CODE TESTS RESULT OUT OF RANGE REFERENCE UNITS LAB PT 11.9-14.2 sec High PT 14.7 LAB INR 0.9-1.1 INR 1.1 LAB PTT 24.0-34.3 sec PTT 28.4 Performed By: #### PTPTT #### [facility] [address] [place], [place] [address] [place] [address] [address] [place], [place] [address] ECHOCARDIOGRAM Observed: 12/03/2017 Status: F Source: [facility] TRANSESOPHAGEAL (OLIVER) 4:26 PM [facility] REPOSITORY Poor image quality. The LV segments are not well seen. The RV was not well seen. The LA appears mildly enlarged. The LA appendage is incompletely seen but no spontaneous contrast or thrombus noted in areas seen. Mild AR. Mild to moderate MR. Mild atherosclerosis noted in ascending aorta, arch and descending aorta. No right to left shunt noted on saline contrast study during normal respiration and valsalva. HEMOGRAM (CBC AND Collected: 12/03/2017 Status: F Source: [facility] PLATELET) 11:33 AM [facility] REPOSITORY TYPE CODE TESTS RESULT OUT OF REFERENCE UNITS RANGE LAB WBC 3.98-10.04 K/uL WBC Count 7.36 LAB RBC 3.93-5.22 M/uL RBC Count 4.20 LAB HGB 11.2-15.7 g/dL Low Hemoglobin 11.1 LAB HCT 34.1-44.9 % Hematocrit 35.7 LAB MCV 79.4-94.8 fL Mean Cell Volume 85.0 LAB MCH 25.6-32.2 pg Mean Cell Hgb 26.4 LAB MCHC 32.2-35.5 g/dL Low Mean Cell Hgb Conc 31.1 LAB RDW 11.7-14.4 % RBC High Distribution 15.0 LAB PLT 182-369 K/uL Platelet Count 255 LAB MPV 9.4-12.3 fL Mean Platelet Volume 11.1 LAB NRBC 0.0-0.2 /100 WBC NUCLEATED RBC 0.0 Performed By: #### HEMOGC, CHM7 #### [facility] [address] [place] [address] [facility] [address] [place], [place] [address] CHEM 7 Collected: 12/03/2017 Status: F Source: [facility] 11:[address] [facility] REPOSITORY TYPE CODE TESTS RESULT OUT OF REFERENCE UNITS RANGE LAB BUN 7-22 mg/dL BUN 18 LAB NA 133-143 mmol/L Sodium 142 LAB K 3.5-5.0 mmol/L Potassium 5.0 LAB CL 98-108 mmol/L Chloride 103 LAB CO2 22-30 mmol/L Carbon Dioxide 29 LAB GLUC 70-99 mg/dL Glucose High 142 LAB CREA 0.50-1.20 mg/dL High Creatinine 1.32 LAB GAP 7-17 mmol/L Anion Gap 15 LAB BC BUN/CREA Ratio 14 LAB OSMC 278-305 mOsm/kg Osmolality 303 (Calc) LAB GFR >60 mL/min/1.73 Low sqM Est GFR,non 39 Gabonese LAB GFRA >60 mL/min/1.73 Low sqM Est GFR, 47 Performed By: #### HEMOGC, CHM7 #### [facility] [address] [place] [address] [place] [address] OPERATIVE REPORT Observed: 11/04/2017 Status: F Source: [facility] 5:25 [facility] [place] [facility] Medical Records Department [address] [place] [address] Operative Report 11/03/17 1228 MR#: [id number] Acct: [id number] Name: COMFORT HU Rep #: [id number] : 1940 76 From: Patrick Ellsworth MD PCP: Nia Uriostegui DO Status: [facility] Y Location: [facility] Problem List (1) New onset atrial flutter Status: Acute (2) Atherosclerotic heart disease of [place] coronary artery without angina pectoris Status: Chronic Qualifiers: [place] vs. transplanted heart: [place] heart Qualified Code(s): I25.10 - Atherosclerotic heart disease of [place] coronary artery without angina pectoris Comment: 08/06/2004 CABG x2 VILLAGRAN side to side to second Diagonal and end to side to Anterior Descending artery in Sequential fashion. LHC: 08/01/2004; 10/15/2011 (3) Cardiomyopathy in diseases classified elsewhere Status: Chronic (4) HLD (hyperlipidemia) Status: Chronic Qualifiers: Hyperlipidemia type: mixed hyperlipidemia Qualified Code(s): E78.2 - Mixed hyperlipidemia (5) Hypertension Status: Chronic Qualifiers: Hypertension type: essential hypertension Qualified Code(s): I10 - Essential (primary) hypertension (6) Left bundle branch block Status: Chronic (7) Obesity Status: Chronic Qualifiers: Obesity type: unspecified [...] hypertension Status: Chronic Operative Report Date of Procedure: 11/03/17 - Conscious sedation CONSCIOUS SEDATION REPORT BRIEF HISTORY OF PRESENT ILLNESS: The patient is a 76-year-old female who presented to [facility] for an elective outpatient cardioversion due to underlying atrial fibrillation. The patient reports no PO intake since midnight. The patient does have a history of obstructive sleep apnea, but is not compliant with therapy. The patient reports no history of smoking and COPD. The patient denies any recent constitutional symptoms such as fevers, chills, nausea or vomiting. The patient denies previous anesthetic complications. Last known ejection fraction of 50%. Patient has had multiple cardioversions, but only has problems in the ER. Review of the the patient's chart shows Cardizem is typically given prior to cardioversion in the ER. Otherwise, no [...] were noted. LUNGS: Clear to auscultation bilaterally without appreciable wheezes, rales or rhonchi. ABDOMEN: Soft, nontender, nondistended. Positive bowel sounds. EXTREMITIES: There is no clubbing, cyanosis or edema. ASA Class: II DESCRIPTION OF PROCEDURE: After confirmation of informed consent, the patient's anesthesia plan was reviewed in detail. Propofol was chosen. Risks and benefits were reviewed and the patient agreed to proceed. At 12:04 PM, the patient was given 40 mg of propofol. The patient achieved an appropriate level of sedation and received 1 attempt s synchronized cardioversion, at [address] Winchester at the bedside. This was successful in achieving normal sinus rhythm. The patient was monitored until 12:10 PM, at which time the patient reached their baseline mental status and function. The patient tolerated the procedure well. COMPLICATIONS: None ESTIMATED BLOOD LOSS: None RECOMMENDATIONS: Okay to recover in usual fashion. Code Visit 9xxxx: Other Procedure See Report - [id number] 11/04/17 0525 <Electronically signed by Patrick Ellsworth MD> Date Patrick Ellsworth MD CC: Patrick Ellsworth MD; Jonel Winchester MD; Nia Uriostegui DO Signed OPERATIVE REPORT Observed: 11/03/2017 Status: F Source: [facility] 12:16 PM [facility] REPOSITORY [facility] Medical Records Department [address] [place] [address] Operative Report 11/03/17 1214 MR#: [id number] Acct: [id number] Name: COMFORT HU Rep #: [id number] : 1940 76 From: Jonel Winchester MD PCP: Nia Uriostegui DO Status: [facility] [place] Location: [facility] Operative Report Date of Procedure: 11/03/17 DC cardioversion. 76-year-old lady with a history of symptomatic atrial flutter. Patient on anticoagulation. The patient was brought to the noninvasive cardiac catheterization lab. The patient was seen in consultation by Dr. Ellsworth of the critical care division. An EKG was performed which demonstrated atrial flutter with a controlled ventricular response rate. Patient has been on anticoagulation uninterrupted for at least 3 weeks. Informed consent was obtained anterior posterior pads were applied. 200 J of synchronized cardioversion energy were applied after the patient was administered 40 mg of intravenous propofol for sedation. Prompt reversal to sinus rhythm was noted. The patient tolerated the procedure well. Conclusion: Successful DC cardioversion to sinus rhythm. Continue amiodarone at the current dose Continue anticoagulation. Referred to EP service for atrial flutter ablation 11/03/17 1216 <Electronically signed by Jnoel Winchester MD> Date Jonel Winchester MD CC: Jonel Winchester MD; Nia Uriostegui DO Signed CARDIOLOGY VISIT Observed: 10/08/2017 Status: F Source: [facility] REPORT 11:25 AM [facility] REPOSITORY [facility] [address] [place] [address] OFFICE VISIT Date of Service: 10/08/17 MR#: [id number] Acct: [id number] Name: COMFORT HU Rep #: [id number] : 1940 Provider: Jonel Winchester MD Age/Sex: 76/F Location: [facility] Status: Signed HPI HPI Chief Complaint: Follow up Details: COMFORT HU, is a 76 F who presents to the office today for a follow-up visit. She is a lady with a history of coronary artery disease status post carotid bypass surgery in 2004 with a left internal mammary artery to the second diagonal vessel and left anterior descending artery. She also has a history of atrial fibrillation with rapid ventricular response rate. She previously had a history of a meningioma and so it was not clear whether we could anticoagulate her on not but after clearing with her neurosurgeon she has been put on Eliquis which she is tolerating. In April of this year she presented to the emergency room with atrial fibrillation with a rapid ventricular response rate and underwent urgent DC cardioversion. She presented again in September with atrial flutter and underwent synchronized DC cardioversion and within a week she had presented again and required the same. Her amiodarone was [...] edema and normal blood pressure. Intake Vital Signs10/08/17 Height 5 ft 5 in 10/08/17 Weight: 206 lb 10/08/17 Body Mass Index (BMI) 34.2 10/08/17 Blood Pressure 170/76 10/08/17 Respiratory Rate 20 10/08/17 Pulse Rate 70 Intake Visit Reasons: ER 8-20 per [facility] Allergies No Known Allergies Allergy (Verified 10/08/17 10:23) Medications Albuterol IH (ProAir) [Proair Hfa (SP)Vent Pts] 2 puff INHALATION Q4H PRN PRN 08/24/17 [History Confirmed 10/05/17] Atorvastatin Calcium [Lipitor] 40 mg PO QHS 08/24/17 [History Confirmed 10/05/17] Cholecalciferol (Vitamin D3) [Vitamin D3] 6,000 unit PO DAILY 08/24/17 [History Confirmed 10/05/17] Fluticasone/Salmeterol [Advair 250/50 Mcg Diskus] 1 puff INHALATION BID 08/24/17 [History Confirmed 10/05/17] Furosemide 40 mg PO QHS 08/24/17 [History Confirmed 10/05/17] Gabapentin [Neurontin] 100 mg PO BIDCM 08/24/17 [History Confirmed 10/05/17] Insulin Detemir [Levemir] 19 unit SQ QHS 08/24/17 [History Confirmed 10/05/17] Lansoprazole [Prevacid] 30 mg PO DAILY 08/24/17 [History Confirmed 10/05/17] Linagliptin [Tradjenta] 5 mg PO DAILY 08/24/17 [History Confirmed 10/05/17] Metformin HCl 1,000 mg PO BID 08/24/17 [History Confirmed 10/05/17] Methscopolamine Casanova 5 mg PO BID 08/24/17 [History Confirmed 10/05/17] Montelukast [Singulair] 10 mg PO DAILY 08/24/17 [History Confirmed 10/05/17] Nitroglycerin [Nitrostat] 0.4 mg SUBLINGUAL Q5M PRN 08/24/17 [History Confirmed 10/05/17] Potassium Chloride [Klor-Con] 20 meq PO [...] BID #180 tab 10/08/17 [Rx Confirmed 10/08/17] [facility] Medical History Left bundle branch block (Chronic) New onset atrial flutter (Acute 09/29/17) 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) Cardiomyopathy in diseases classified elsewhere (Chronic) Paroxysmal atrial fibrillation (Chronic) Atherosclerotic heart disease of [place] coronary artery without angina pectoris (Chronic) HLD (hyperlipidemia) (Chronic) Hypertension (Chronic) Obesity (Chronic) Non-ST elevation myocardial infarction (NSTEMI) due to mismatch of myocardial oxygen supply and demand (Chronic) Asthma (Chronic) Benign paroxysmal positional vertigo (Chronic) Gout (Chronic) Meningioma (Chronic) 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, intractable, with status epilepticus (Chronic) Type 2 diabetes mellitus (Chronic) Atrial enlargement, left (Inactive) Surgical History Presence of aortocoronary bypass graft (Chronic) History of cardioversion (Acute 09/29/17) H/O craniotomy (Resolved 2008) History of ankle surgery (Resolved) History of hysterectomy (Resolved) History of left heart catheterization (LHC) [...] of peripheral vision, transient loss of vision, blurry vision, tunnel vision or double vision ENT ENT: Negative for headache(s), dizziness, Nosebleed/epistaxis or balance problems Cardio Chest Pain: No Palpitations: No Edema: Bilateral (New onset of pedal/ankle edema) Muscle aches with walking: None Resp Respiratory: Positive for SOB with activity; negative for SOB at rest, SOB orthopnea\SOB lying down, paroxysmal nocturnal dyspnea or Cough GI GI: Negative nausea, heartburn, black,tarry stools or vomiting : Negative for hematuria Musc Musc: Negative for balance problems, muscle aches/ myalgia, muscle weakness or joint pain Skin Skin: Negative non-healing lesions, unusual bruising or rash Neuro Neuro: Positive for weakness; negative for blurry vision, double vision, headache(s), dizziness, lightheadedness, orthostatic symptoms, frequent falls, near syncope, syncope or lack of coordination Ladarius Hematologic/Lymphatic: Negative for easy bruising or easy bleeding Endo Endo: Positive for fatigue Psych Psych: Negative for anxiety or depression Allergy Allergy/Immunology: Negative for hives, Negative for rash Cardiology Exam Const Appearance: cooperative, healthy appearing, well developed, well groomed and no acute distress Nutritional Appearance: well nourished and average body habitus Orientation: alert, awake and oriented x3 Head Head: normal to inspection, normocephalic and atraumatic Ears: hearing grossly normal bilaterally and external ears normal Nose: external nose normal, nasal mucous membranes and turbinates normal, nares normal, septum normal, no nasal discharge Face and Sinus: face symmetric Mouth: oral mucosae normal, tongue normal, oropharynx normal and moist mucous membranes Teeth and gingiva: dentition normal Throat: posterior oropharynx normal, tonsils normal and uvula midline Eyes General: appearance normal, both eyes and all related structures Eyelids: eyelids normal Conjunctivae: conjunctivae normal Pupils: PERRL, normal by confrontation and accommodation normal EOM: EOM intact bilaterally Neck Neck: normal visual inspection, trachea midline and no JVD JVD: +5 [...] 50% and has had at least 4 cardioversions this year. At this juncture I would recommend that she be considered for an atrial fibrillation ablation. Arrangements were made at the [facility] for the above to be considered. In the meantime she will remain on her beta-carolyn as well as amiodarone. I would recommend increasing the beta-carolyn to 50 mg twice a day . 2. Essential hypertension I10 3. Left bundle branch block I44.7 Plan She does have a chronic [...] have had any anginal spells. You do remember she underwent a cardiac catheterization within the last year and no significant obstructive coronary disease was noted. 5. 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 My recommendation will be to continue the same medications without making any changes. Thank you for allowing me to participate in the care of your patient. Please don't hesitate to call if any issues arise Plan Detail Other Medications New: Additional Comments With regard to her blood pressure I recommend that we increase her beta-carolyn to 50 mg twice a day. She still has a left bundle branch block. 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) Coding Level of Care Code Off vis,est,level [...] I43 10/08/17 1125 <Electronically signed by Jonel Winchester MD> Date Jonel Winchester MD Cosigner Signature: Date (if applicable) CC: Nia Uriostegui DO 12 LEAD ELECTROCARDIOGRAM Observed: 10/07/2017 Status: F Source: [facility] 2:45 PM [facility] REPOSITORY [facility] Cardiovascular Services [address] [place] [address] 12 Lead EKG 10/05/17 0149 MR#: [id number] Acct: [id number] Name: COMFORT HU Rep #: [id number] : 1940 76 From: Jonel Winchester MD Attending Dr: Status: DEP ER Ordering Dr: Emery Allen MD Date: 10/05/17 Location: ED Sex: F C Admitted: Test Reason : A FIB Blood Pressure : / mmHG Vent. Rate : 121 BPM Atrial Rate : 242 BPM P-R Int : 000 ms QRS Dur : 124 ms QT Int : 348 ms P-R-T Axes : 246 -48 172 degrees QTc Int : 494 ms Atrial flutter with 2:1 block Left axis deviation Left bundle branch block Abnormal ECG Confirmed by JONEL WINCHESTER MD ([id number]), AMIRA Roldan ([id number]) on 10/07/2017 2:45:19 PM Referred By: Jonel Winchester Confirmed By:JONEL WINCHESTER MD 10/07/17 1445 Date Jonel Winchester MD CC: Emery Allen MD; Nia Uriostegui DO Signed 12 LEAD ELECTROCARDIOGRAM Observed: 10/07/2017 Status: F Source: [facility] 2:43 PM [facility] REPOSITORY [facility] Cardiovascular Services [address] [place] [address] 12 Lead EKG 10/05/17 0333 MR#: [id number] Acct: [id number] Name: COMFORT HU Rep #: [id number] : 1940 76 From: Jonel Winchester MD Attending Dr: Status: DEP ER Ordering [...] Left axis deviation Non-specific intra-ventricular conduction block T wave abnormality, consider lateral ischemia Abnormal ECG Confirmed by JONEL WINCHESTER MD ([id number]), editorial writer AMIRA CASTRO ([id number]) on 10/07/2017 2:42:56 PM Referred By: Jonel Winchester Confirmed By:JONEL WINCHESTER MD 10/07/17 1442 Date Jonel Winchester MD CC: Emery Allen MD; Nia Uriostegui DO Signed EMERGENCY DEPARTMENT Observed: 10/05/2017 Status: F Source: [facility] SUMMARY 5:28 AM [facility] REPOSITORY [facility] Medical Records Department [address] [place] [address] Emergency Department Summary 10/05/17 0435 MR#: [id number] Acct: [id number] Name: COMFORT HU Rep #: [id number] : 1940 76 From: Emery Allen MD PCP: Nia Uriostegui DO Status: DEP ER - ER Visit Summary Date of Service: 10/05/17 Chief Complaint: Heart rate up History of Present Illness: The patient is a 76 F with a rapid heart rate and palpitations. Symptoms started around 11 PM overnight tonight. Patient has a history of atrial flutter and takes metoprolol, amiodarone, and Eliquis. She underwent synchronized cardioversion earlier this week and was told that if her symptoms recurred, she should take an extra dose of amiodarone. This did not help. Nothing seemed to bring this on or make it better. She [...] Patient was seen immediately. EKG done. She was placed on a monitor and had IV access. She was hesitant to have synchronized cardioversion. According to the patient, she had hypotension and felt funny after her last cardioversion. She thinks her symptoms were related to the Cardizem and subsequent treatment with etomidate prior to cardioversion. She would like to try medical therapy first. She received metoprolol, IV, 5 mg, 3 times. She had no change in her heart rate. Patient was discussed with Dr. Grande. No further recommendations medically. He did advise synchronize cardioversion. Patient consented. Pretreated with Zofran. She received a total of 70 mg of propofol to achieve appropriate sedation. She was monitored and had stable blood pressures. She had spontaneous respirations. She was cardioverted with 150 J, synchronized. She has subsequent pause, brief bradycardia, and then went into sinus rhythm. She had occasional sinus pauses, but these resolved spontaneously. Repeat EKG showed sinus rhythm at a rate of 70. She does have some lateral T-wave changes. She had these on previous EKGs. Nothing acute. Patient is feeling much better. Blood pressures are stable. Dr. Grande had advised increasing her amiodarone to 200 mg twice a day for 3 days and then switching to 200 mg every day. The patient will follow up with Dr. Winchester later this week. Treatment Plan: As above Disposition: Discharged Impression: 1. Atrial flutter This note was generated with Paxeration software. It may contain incorrect words, spelling, [...] your Primary Care Provider. Call [facility] ([phone]) or report to the closest Emergency Room. Call 911 if necessary. 10/05/17 0528 <Electronically signed by Emery Allen MD> Date Emery Allen MD Cosigner Signature (If Indicated): Date CC: Nia Uriostegui DO DISCHARGE INSTRUCTION Observed: 10/05/2017 Status: F Source: [place] 5:28 AM [facility] REPOSITORY [facility] Medical Records Department [address] [place] [address] Discharge Instruction 10/05/17 0440 MR#: [id number] Acct: [id number] Name: COMFORT HU Rep #: [id number] : 1940 76 From: Emery Allen MD PCP: Nia Uriostegui DO Status: [facility] ER ED Disposition - Plan for ED Patient: Chief Complaint: Palpitations Instructions: ED Paroxysmal Atrial Flutter Referrals: Jonel Winchester MD [STAFF PHYSICIAN] - Additional Instructions: Increase amiodarone to 200 mg twice a day for the next 3 days, then switch to 200 mg once a day after that. Follow-up with Dr. Winchester. What to do if you have Problems For any increased pain, shortness of breath, bleeding, nausea or vomiting, chest pain, or any unexpected problems, contact your Primary Care Provider. Call [facility] ([phone]) or report to the closest Emergency Room. Call 911 if necessary. 10/05/17 0528 <Electronically signed by Emery Allen MD> Date Emery Allen MD Cosigner Signature (If Indicated): Date CC: Nia Uriostegui DO CHEST 1 VIEW Observed: 10/05/2017 Status: F Source: [facility] (PORTABLE) 2:17 AM [facility] REPOSITORY [facility] Imaging Services [address] [place] [address] Chest 1 View (Portable) MR#: [id number] Acct: [id number] Name: COMFORT HU Rep #: [id number] : 1940 F 76 From: Chris Dwyer MD PCP: Nia Uriostegui DO Status: [facility] ER Study: Chest 1 View (Portable) Date of Exam: 10/05/17 Exam# [id number] Ordering Dr: Emery Allen MD STUDY: X-RAY CHEST REASON FOR EXAM: [...] abdomen. RAD/Chest 1 View (Portable) IMPRESSION: Mild cardiomegaly. Minimal persistent left basilar atelectasis. No evidence for acute cardiopulmonary pathology. Electronically Signed: Chris Dwyer MD at 2:42 EDT , Service support , CC: Emery Allen MD; Nia Uriostegui DO Contract Technical Writer: Signed CBC W/DIFF, AUTOMATED Collected: 10/05/2017 Status: F Source: [place] 1:55 AM [facility] REPOSITORY TYPE CODE TESTS RESULT OUT OF RANGE REFERENCE UNITS LAB L100.1000 4.4-11.0 K/mm3 Normal WBC 8.7 LAB L100.1200 4.2-5.4 M/mm3 Normal RBC 4.34 LAB L100.1300 12.0-15.0 g/dl Low HGB 11.9 LAB L100.1400 37-47 % Normal HCT 37.1 LAB L100.1500 81-99 fL Normal MCV 85.5 LAB L100.1600 27.0-32.0 pg Normal MCH 27.4 LAB L100.1700 32-36 g/gl Normal MCHC 32.1 LAB L100.1810 11.6-14.6 % High RDW CV 14.7 LAB L100.1820 35.1-43.9 fl High RDW SD 44.8 LAB L100.1900 150-450 K/mm3 Normal PLT 249 LAB L100.2000 6.2-12.0 fl Normal MPV 10.6 LAB L100.2100 47-70 % Normal NEUT% 65.1 LAB L100.2200 19-41 % Normal LY% 23.8 LAB L100.2300 0-10 % Normal MONO% 9.2 LAB L100.2400 0-5 % Normal EO% 1.1 LAB L100.2500 0-1 % Normal BASO% 0.3 LAB L100.2550 0.0-0.9 % Normal IM GRAN % 0.500 Result Comment: IG% - Immature Granulocytes (promyelocytes, myelocytes and metamyelocytes) > 1% indicates that a LEFT SHIFT is Present. LAB L100.2620 2.0-7.7 X10 3/uL Normal Absolute Neut 5.7 LAB L100.2720 0.83-4.51 X10 3/ul Normal Absolute Lymph 2.08 Performed By: #### L100.0100 #### [facility] [address] [place], [address] BASIC METABOLIC Collected: 10/05/2017 Status: F Source: [facility] PROFILE ([facility]) 1:55 AM [facility] REPOSITORY TYPE CODE TESTS RESULT OUT OF RANGE REFERENCE UNITS LAB L501.0100 74-106 mg/dL High GLU 225 Result Comment: Glucose result greater than or equal to 200 mg/dL suggests DIABETES MELLITUS per A.D.A. criteria. Please note revised GLUCOSE reference range effective 2017. LAB L501.1000 7-18 mg/dL Normal BUN 15 LAB L501.1100 0.55-1.02 mg/dL High CREAT,SERUM 1.30 Result Comment: The validity of the calculated GFR AND GFRAA in patients over 70 years has not been determined. Clinical correlation is essential. LAB L501.1110 >60 mL/min Low EST GFR 42 Result Comment: Non- GFR Calc LAB L501.1115 >60 mL/min Low EST GFR - AA 51 Result Comment: GFR Calc LAB L501.1255 ml/min Normal Estimated CRCL 33.13 LAB L501.1300 10-20 RATIO Normal BUN/CRE 11.5 LAB L501.2200 8.5-10 mg/dL Normal .1 CA 8.8 LAB L501.5300 136-14 mmol/L Normal 5 NA 140 LAB L501.5600 3.5-5. mmol/L Normal 1 K 4.2 LAB L501.5900 98-107 mmol/L Normal CL 103 LAB L501.6100 21.0-3 mmol/L Normal 2.0 CO2 23.0 LAB L501.6200 5-15 Normal GAP 14 Performed By: #### L500.2500, L501.4010 #### [facility] [address] [place], [address] TROPONIN-I Collected: 10/05/2017 Status: F Source: [facility] 1:55 AM [facility] REPOSITORY TYPE CODE TESTS RESULT OUT OF RANGE REFERENCE UNITS LAB L501.4010 <0.045 ng/mL Normal < 0.015 TROPONIN-I Result Comment: TROPONIN-I EXPECTED VALUES <0.045 Negative 0.045 - 0.590 Consistent with Cardiac Damage > OR = 0.600 Critical Value Not every elevated troponin is indicative of CT. These values should be used with clinical judgement in examining the patient's clinical picture for diagnosis. To establish a diagnosis of CT versus myocardial injury, there must be a demonstrated rise and/or fall in the troponin values, in addition to ischemic symptoms, EKG changes, new regional wall motion abnormality, and/or angiographical evidence. PLEASE NOTE: REFERENCE RANGES EDITED 17 Performed By: #### L500.2500, L501.4010 #### [facility] [address] [place], [address] 12 LEAD ELECTROCARDIOGRAM Observed: 10/03/2017 Status: F Source: [facility] 1:44 PM [facility] REPOSITORY [facility] Cardiovascular Services [address] [place] [address] 12 Lead EKG 10/02/17 1353 MR#: [id number] Acct: [id number] Name: COMFORT HU Rep #: [id number] : 1940 76 From: Jonel Winchester MD Attending Dr: Jonel Winchester MD Status: REG CLI Ordering Dr: Lui LombardoC Date: 10/02/17 Location: CVS Sex: F C Admitted: Test Reason : AFLUTTER Blood Pressure : / mmHG Vent. Rate : 068 BPM Atrial Rate : 068 BPM P-R Int : 176 ms QRS Dur : 128 ms QT Int : 438 ms P-R-T Axes : 054 -40 085 degrees QTc Int : 465 ms Normal sinus rhythm Left axis deviation Non-specific intra-ventricular conduction block Abnormal ECG Confirmed by JONEL WINCHESTER MD ([id number]), editorial writer AMIRA CASTRO ([id number]) on 10/03/2017 1:43:28 PM Referred By: Jonel Winchester Confirmed By:JONEL WINCHESTER MD 10/03/17 1343 Date Jonel Winchester MD CC: JOSSELYN Lombardo; Jonel Winchester MD; Nia Uriostegui DO Signed ECHO, COMPLETE W/ Observed: 10/02/2017 Status: F Source: [place]A CONTRAST 5:44 PM [facility] REPOSITORY [facility] Cardiovascular Services [address] [place] [address] Echo Complete W/ Contrast 10/02/17 1250 MR#: [id number] Acct: [id number] Name: COMFORT HU Rep #: [id number] : 1940 76 From: Jonel Winchester MD Attending Dr: Jonel Winchester MD Status: REG CLI Ordering Dr: Jonel Winchester MD Date: 10/02/17 Location: CVS Sex: F C Admitted: Reason For Study: S/P CABG Procedure This was a 2D Doppler, Color Flow transthoracic echocardiogram. Contrast injection was performed. The study was technically difficult. Exam performed in department. Left Ventricle Normal LV size. The estimated ejection fraction [...] pressure is 54 mmHg. Aortic Valve Trisinus/trileaflet aortic valve. Mild (1+) eccentric aortic valve insufficiency. Pulmonic Valve Normal pulmonic valve. Great Vessels Normal aortic root. The pulmonary artery is normal size. Normal inferior vena cava. Pericardium/Pleural No pericardial effusion. Medication 22 gauge I.V. with prn adaptor inserted into right arm. Diluted definity 3ml given slow IV push to enhance endocardial definition. MMode/2D Measurements AND Calculations LVIDd: 4.8 cm IVSd: 1.1 [...] ml EF(MOD-sp4): 56.4 % EF(sp4-el): 56.9 % SV(MOD-sp4): 60.5 ml SV(MOD-sp2): 50.7 ml SV(sp4-el): 61.3 ml LA A4 area: 23.7 cm2 RA A4 area: 18.3 cm2 Time Measurements MV dec time: 0.16 sec Doppler Measurements AND Calculations MV E max angie: 92.9 cm/sec Lat Peak E' Angie: 7.5 cm/sec Med Peak E' Angie: 5.0 cm/sec MV A max angie: 90.7 cm/sec E/E' lat: 12.4 E/E' med: 18.5 MV E/A: 1.0 Ao V2 max: 138.7 [...] 50 %. Septal motion consistent with IVCD. There is mild global hypokinesis of the left ventricle. Transmitral diastolic flow velocities suggest moderate (stage 2) diastolic dysfunction (pseudonormal pattern). Compared to the previous the LV function is improved. Ordering Physician: Jonel Winchester Referring Physician: Jonel Winchester Performed By: Rachel Oconnor, NEREYDA, RVT 10/02/171742 Date Jonel Winchester MD CC: Jonel Winchester MD; Nia Uriostegui DO Date Dictated: 10/02/17 1250 Date Transcribed: 10/02/171742 Contract Technical Writer: Signed 12 LEAD ELECTROCARDIOGRAM Observed: 10/02/2017 Status: F Source: [facility] 1:30 PM [facility] REPOSITORY [facility] Cardiovascular Services [address] [place] [address] 12 Lead EKG 09/29/17 1035 MR#: [id number] Acct: [id number] Name: COMFORT HU Rep #: [id number] : 1940 76 From: Antonio Tovar MD Attending Dr: Status: DEP ER Ordering Dr: Jignesh Telol MD Date: 09/29/17 Location: ED Sex: F [...] Left axis deviation Non-specific intra-ventricular conduction block T wave abnormality, consider lateral ischemia Abnormal ECG Confirmed by ANTONIO TOVAR MD ([id number]), editorial writer AMIRA CASTRO ([id number]) on 10/02/2017 1:30:21 PM Referred By: BOZENA Confirmed By:ANTONIO TOVAR MD 10/02/17 1330 Date Antonio Tovar MD CC: Nia Uriostegui DO; Jignesh Tello MD Signed 12 LEAD ELECTROCARDIOGRAM Observed: 10/02/2017 Status: F Source: [place] 1:28 PM [facility] REPOSITORY [facility] Cardiovascular [facility] [address] [place] [address] 12 Lead EKG 09/29/17 1020 MR#: [id number] Acct: [id number] Name: COMFORT HU Rep #: [id number] : 1940 76 From: Antonio Tovar MD [...] 413 ms Sinus bradycardia with marked sinus arrhythmia Left axis deviation Left bundle branch block Abnormal ECG Confirmed by ANTONIO TOVAR MD ([id number]), editorial writer AMIRA CASTRO ([id number]) on 10/02/2017 1:27:54 PM Referred By: BOZENA Confirmed By:ANTONIO TOVAR MD 10/02/17 1327 Date Antonio Tovar MD CC: Nia Uriostegui DO; Jignesh Tello MD Signed 12 LEAD ELECTROCARDIOGRAM Observed: 10/02/2017 Status: F Source: [place] 1:27 PM [facility] REPOSITORY [facility] Cardiovascular Services [address] [place] [address] 12 Lead EKG 09/29/17 0905 MR#: [id number] Acct: [id number] Name: COMFORT HU Rep #: [id number] : 1940 76 From: Antonio Tovar MD [...] : 518 ms Supraventricular tachycardia : Consider atrial tachycardia/flutter Left axis deviation Left bundle branch block Abnormal ECG Confirmed by ZARA ROSAS, ANTONIO ([id number]), editorial writer AMIRA CASTRO ([id number]) on 10/02/2017 1:27:13 PM Referred By: BOZENA Confirmed By:ANTONIO TOVAR MD 10/02/17 1327 Date Antonio Tovar MD CC: Nia Uriostegui DO; Jignesh Tello MD Signed 12 LEAD ELECTROCARDIOGRAM Observed: 10/02/2017 Status: F Source: [place] 1:26 PM [facility] REPOSITORY [facility] Cardiovascular Services [address] [place] [address] 12 Lead EKG 09/29/17 09 MR#: [id number] Acct: [id number] Name: COMFORT HU Rep #: [id number] : 1940 76 From: Antonio Tovar MD Attending Dr: Status: DEP ER Ordering Dr: Jignesh Tello MD Date: 09/29/17 Location: ED Sex: F C Admitted: Test Reason : REPEAT-POST CARDIZEM Blood Pressure : / mmHG Vent. Rate : 088 BPM Atrial Rate : 258 BPM P-R Int : 000 ms QRS Dur : 120 ms QT Int : 394 ms P-R-T Axes : 000 -38 160 degrees QTc Int : 476 ms Atrial flutter with variable A-V block Left axis deviation Anterior infarct , age undetermined Left bundle branch block Abnormal ECG Confirmed by ZARA ROSAS, ANTONIO ([id number]), editorial writer AMIRA CASTRO ([id number]) on 10/02/2017 1:26:27 PM Referred By: BOZENA Confirmed By:ANTNOIO TOVAR MD 10/02/17 1326 Date Antonio Tovar MD CC: Nia Uriostegui DO; Jignesh Tello MD Signed EMERGENCY DEPARTMENT Observed: 09/29/2017 Status: F Source: [facility]IRE SUMMARY 5:08 PM [facility] REPOSITORY [facility] Medical Records Department [address] [place] [address] Emergency Department Summary 09/29/17 0912 MR#: [id number] Acct: [id number] Name: COMFORT HU Rep #: [id number] : 1940 76 From: Jignesh Tello MD PCP: Nia Uriostegui DO Status: DEP ER - ER Visit Summary Date of Service: 09/29/17 Chief Complaint: Palpitations History of Present Illness: The patient is a [address] Winchester and Dr. Uriostegui. She reports that she is in atrial fibrillation again and that it started 2 days ago. She reports that her heart rates been as high as 160. She took an extra 100 mg of amiodarone 2 days ago and then again yesterday. She denies any chest pain. She does report that she is short of breath with exertion. Patient reports that she has had this multiple times in the past and has been cardioverted as recently as 1 month ago for this. She is on Eliquis. Her last dose was this morning. She has not missed any doses. Physical Examination: Vitals: 98.4, 157/92, 127, 17, 95% on room air which is not hypoxic. General: Well-nourished and well-developed. Head: Normocephalic atraumatic. Neck: Supple, no lymphadenopathy. No JVD. Nontender. Cardiovascular: Tachycardic regular rhythm. No murmurs. Respiratory: No respiratory distress. Clear to auscultation bilaterally. Abdominal: Soft, nontender, nondistended, normal bowel sounds. No guarding, rebound, or peritoneal signs. Back: Nontender. Extremities: Nontender, no edema. Skin: Normal color, no rash. Neurologic: Alert and oriented 3. Cranial nerves II through XII are intact. Normal strength and sensation. Psych: Normal affect. Test Results: EKG shows atrial flutter at 129 with left bundle branch block. It is unchanged from August 24, 2017. CBC is normal. Chem-7 is marked for creatinine 1.32 and glucose of 198. Troponin is 0.02. Chest x-ray shows atelectasis. Repeat EKG after cardioversion is sinus bradycardia with marked sinus arrhythmia at 45. No ischemic changes. Emergency Department Course and Treatment: Patient had an IV placed. She was given Cardizem IV. Her heart rate is decreased into the 80s. She is resting comfortably. Had a prolonged discussion with the patient about treatment options. She has been cardioverted multiple times in the past. After discussion with Dr. Winchester the patient was given 8 mg of etomidate and had synchronized cardioversion undertaken at 200 J. Following this she had a significant pause and then entered sinus bradycardia in the 30s-50s. She did maintain a pressure with this. She denied any chest pain with it. She is able to mentate appropriately. The patient reentered a sinus rhythm approximately 15 minutes after the cardioversion. She has been observed for over an hour and has remained in sinus rhythm throughout this. She is resting comfortably and has no complaint of chest pain, shortness of breath, or palpitations. Treatment Plan: Patient will be discharged instructions to increase her amiodarone from 100-200 mg a day. She will be scheduled to have an EKG and Dr. Winchester's office. Return to the emergency department for any worsening symptoms. Disposition: To home in improved and stable condition. Impression: 1. Atrial flutter. 2. Cardioversion. 3. Procedural sedation. 4. Sinus bradycardia. This note was generated with Dragon dictation software. It may contain incorrect words, spelling, and punctuation that were not noted in review of the chart prior to signing ED Disposition - Plan for ED Patient: Chief Complaint: Palpitations Instructions: ED Paroxysmal Atrial Flutter Referrals: Jonel Winchester MD [STAFF PHYSICIAN] - Keep Juani appointment Additional Instructions: Increase amiodarone to 200 mg once a day. What to do if you have Problems For any increased pain, shortness of breath, bleeding, nausea or vomiting, chest pain, or any unexpected problems, contact your Primary Care Provider. Call [facility] ([phone]) or report to the closest Emergency Room. Call 911 if necessary. 09/29/171707 <Electronically signed by Jignesh Tello MD> Date Jignesh Tello MD Cosigner Signature (If Indicated): Date CC: Nia Uriostegui DO CBC W/DIFF, AUTOMATED Collected: 09/29/2017 Status: F Source: ALEJANDRA 9:05 AM [facility] REPOSITORY TYPE CODE TESTS RESULT OUT OF RANGE REFERENCE UNITS LAB L100.1000 4.4-11.0 K/mm3 Normal WBC 8.3 LAB L100.1200 4.2-5.4 M/mm3 Normal RBC 4.63 LAB L100.1300 12.0-15.0 g/dl Normal HGB 12.3 LAB L100.1400 37-47 % Normal HCT 39.4 LAB L100.1500 81-99 fL Normal MCV 85.1 LAB L100.1600 27.0-32.0 pg Low MCH 26.6 LAB L100.1700 32-36 g/gl Low MCHC 31.2 LAB L100.1810 11.6-14.6 % High RDW CV 14.8 LAB L100.1820 35.1-43.9 fl High RDW SD 46.1 LAB L100.1900 150-450 K/mm3 Normal PLT 218 LAB L100.2000 6.2-12.0 fl Normal MPV 10.0 LAB L100.2100 47-70 % Normal NEUT% 62.6 LAB L100.2200 19-41 % Normal LY% 26.9 LAB L100.2300 0-10 % Normal MONO% 8.2 LAB L100.2400 0-5 % Normal EO% 1.6 LAB L100.2500 0-1 % Normal BASO% 0.2 LAB L100.2550 0.0-0.9 % Normal IM GRAN % 0.500 Result Comment: IG% - Immature Granulocytes (promyelocytes, myelocytes and metamyelocytes) > 1% indicates that a LEFT SHIFT is Present. LAB L100.2620 2.0-7.7 X10 3/uL Normal Absolute Neut 5.2 LAB L100.2720 0.83-4.51 X10 3/ul Normal Absolute Lymph 2.24 Performed By: #### L100.0100 #### [facility] [address] [place], [address] BASIC METABOLIC Collected: 09/29/2017 Status: F Source: HIGHSPIRE PROFILE (BMP) 9:05 AM [facility] REPOSITORY TYPE CODE TESTS RESULT OUT OF RANGE REFERENCE UNITS LAB L501.0100 74-106 mg/dL High GLU 188 Result Comment: Fasting Glucose result greater than or equal to 126 mg/dL suggests DIABETES MELLITUS per A.D.A. criteria. Please note revised GLUCOSE reference range effective 2017. LAB L501.1000 7-18 mg/dL Normal BUN 18 LAB L501.1100 0.55-1.02 mg/dL High CREAT,SERUM 1.32 Result Comment: The validity of the calculated GFR AND GFRAA in patients over 70 years has not been determined. Clinical correlation is essential. LAB L501.1110 >60 mL/min Low EST GFR 42 Result Comment: Non- GFR Calc LAB L501.1115 >60 mL/min Low EST GFR - AA 50 Result Comment: GFR Calc LAB L501.1255 ml/min Normal Estimated CRCL 32.63 LAB L501.1300 10-20 RATIO Normal BUN/CRE 13.6 LAB L501.2200 8.5-10 mg/dL Normal .1 CA 8.9 LAB L501.5300 136-14 mmol/L Normal 5 NA 138 LAB L501.5600 3.5-5. mmol/L Normal 1 K 4.3 LAB L501.5900 98-107 mmol/L Normal CL 102 LAB L501.6100 21.0-3 mmol/L Normal 2.0 CO2 28.0 LAB L501.6200 5-15 Normal GAP 8 Performed By: #### L500.2500, L501.4010 #### [facility] [address] [place], [address] TROPONIN-I Collected: 09/29/2017 Status: F Source: HIGHSPIRE 9:05 AM [facility] REPOSITORY TYPE CODE TESTS RESULT OUT OF RANGE REFERENCE UNITS LAB L501.4010 <0.045 ng/mL Normal 0.020 TROPONIN-I Result Comment: TROPONIN-I EXPECTED VALUES <0.045 Negative 0.045 - 0.590 Consistent with Cardiac Damage > OR = 0.600 Critical Value Not every elevated troponin is indicative of CT. These values should be used with clinical judgement in examining the patient's clinical picture for diagnosis. To establish a diagnosis of CT versus myocardial injury, there must be a demonstrated rise and/or fall in the troponin values, in addition to ischemic symptoms, EKG changes, new regional wall motion abnormality, and/or angiographical evidence. PLEASE NOTE: REFERENCE RANGES EDITED 17 Performed By: #### L500.2500, L501.4010 #### [facility] [address] [place], [address] CHEST 1 VIEW Observed: 09/29/2017 Status: F Source: HIGHSPIRE (PORTABLE) 8:58 AM [facility] REPOSITORY [facility] Imaging Services [address] [place] [address] Chest 1 View (Portable) MR#: [id number] Acct: [id number] Name: COMFORT HU Lane Rep #: [id number] : 1940 F 76 From: John Corral MD PCP: Nia Uriostegui DO Status: REG ER Study: Chest 1 View (Portable) Date of Exam: 09/29/17 Exam# [id number] Ordering Dr: Jignesh Tello MD STUDY: X-RAY [...] increased markings at the left lung base suggestive of linear atelectasis. Mild cardiomegaly. Prior CABG. Electronically Signed: John Corral MD at 9:55 EDT Tel [phone], Service support , CC: Nia Uriostegui DO; Jignesh Tello MD Contract Technical Writer: Signed CARDIOLOGY VISIT Observed: 09/25/2017 Status: F Source: HIGHSPIRE REPORT 10:29 AM [facility] REPOSITORY [facility] [place] [address] OFFICE VISIT Date of Service: 09/25/17 MR#: [id number] Acct: [id number] Name: COMFORT HU Rep #: [id number] : 1940 Provider: Jonel Winchester MD Age/Sex: 76/F Location: [facility] Status: Signed HPI HPI Chief Complaint: Follow up Details: COMFORT HU, is a 76 F who presents to the office today for a follow-up visit. She is a lady with a history of coronary artery disease status post carotid bypass surgery in 2004 with a left internal mammary artery to the second diagonal vessel and left anterior descending artery. She also has a history of atrial fibrillation with rapid ventricular response rate. She previously had a history of a meningioma and so it was not clear whether we could anticoagulate her on not but after clearing with her neurosurgeon she has been put on Eliquis which she is tolerating. In April of this year she presented to the emergency room with atrial fibrillation with a rapid ventricular response rate and underwent urgent DC [...] Lt brachial Intake Visit Reasons: 6 M Cylinder Grinder Required: No Accompanied by: nonw Is patient in pain?: No Allergies No Known Allergies Allergy (Verified 09/25/17 10:04) Medications Albuterol IH (ProAir) [Proair Hfa (SP)Vent Pts] 2 puff INHALATION Q4H PRN PRN 08/24/17 [History Confirmed 09/25/17] Amiodarone HCl 100 mg PO DAILY 08/24/17 [History Confirmed 09/25/17] Atorvastatin Calcium [Lipitor] 40 mg PO QHS 08/24/17 [History Confirmed 09/25/17] Cholecalciferol (Vitamin D3) [Vitamin D3] 6,000 unit PO DAILY 08/24/17 [History Confirmed 09/25/17] Fluticasone/Salmeterol [Advair 250/50 Mcg Diskus] 1 puff INHALATION BID 08/24/17 [History Confirmed 09/25/17] Furosemide 40 mg PO QHS 08/24/17 [History Confirmed 09/25/17] Gabapentin [Neurontin] 100 mg PO BIDCM 08/24/17 [History Confirmed 09/25/17] Insulin Detemir [Levemir] 19 unit SQ QHS 08/24/17 [History Confirmed 09/25/17] Lansoprazole [Prevacid] 30 mg PO DAILY 08/24/17 [History Confirmed 09/25/17] Linagliptin [Tradjenta] 5 mg PO DAILY 08/24/17 [History Confirmed 09/25/17] Metformin HCl 1,000 mg PO BID 08/24/17 [History Confirmed 09/25/17] Methscopolamine Casanova 5 mg PO BID 08/24/17 [History Confirmed 09/25/17] Metoprolol Tartrate 25 mg PO BID 08/24/17 [History Confirmed 09/25/17] Montelukast [Singulair] 10 mg PO DAILY 08/24/17 [History Confirmed 09/25/17] Nitroglycerin [Nitrostat] 0.4 mg SUBLINGUAL Q5M PRN 08/24/17 [History Confirmed 09/25/17] Potassium Chloride [Klor-Con] 20 meq PO DAILY 08/24/17 [History Confirmed 09/25/17] apixaban 5 mg tablet 5 mg PO BID #180 tab 09/25/17 [Rx Confirmed 09/25/17] magnesium oxide 400 mg tablet 400 mg PO QDAY tab 09/25/17 [History Confirmed 09/25/17] [facility] Medical History Other secondary pulmonary hypertension (Chronic) Cardiomyopathy in diseases classified elsewhere (Chronic) Other cerebral infarction (Chronic) Paroxysmal atrial fibrillation (Chronic) Atrial enlargement, 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) HTN [...] or lip swelling Cardio Chest Pain: No Palpitations: No Edema: None Muscle aches with walking: None Resp Respiratory: Positive for SOB with activity; negative for SOB at rest, SOB orthopnea\SOB lying down, Cough or paroxysmal nocturnal dyspnea GI GI: Negative nausea, vomiting, heartburn, black,tarry stools or bright, red blood in stools : Negative for hematuria Musc Musc: Negative for balance problems, muscle aches/ myalgia, muscle weakness or joint pain Skin Skin: Negative non-healing lesions, unusual bruising or rash Neuro Neuro: Negative for weakness, frequent falls, headache(s), double vision, dizziness, lightheadedness, orthostatic symptoms, blurry vision or lack of coordination [place] Hematologic/Lymphatic: Negative for easy bruising or easy bleeding Endo Endo: Negative for fatigue, excessive sweating, cold intolerance, heat intolerance, increased thirst/drinking or hair loss Psych Psych: Negative for anxiety or depression Allergy Allergy/Immunology: Negative for throat swelling, Negative for tongue swelling, Negative for hives, Negative for rash, Negative for lip swelling Cardiology Exam Const Appearance: cooperative, healthy appearing, well developed, well groomed and no acute distress Nutritional Appearance: well nourished and average body habitus Orientation: alert, awake and oriented x3 Head Head: normal to inspection, normocephalic and atraumatic Ears: hearing grossly normal bilaterally and external ears normal Nose: external nose normal, nasal mucous membranes and turbinates normal, nares normal, septum normal, no nasal discharge Face and Sinus: face symmetric Mouth: oral mucosae normal, tongue normal, oropharynx normal and moist mucous membranes Teeth and gingiva: dentition normal Throat: posterior oropharynx normal, tonsils normal and uvula midline Eyes General: appearance normal, both eyes and all related structures Eyelids: eyelids normal Conjunctivae: conjunctivae normal Pupils: PERRL, normal by confrontation and accommodation normal EOM: EOM intact bilaterally Neck Neck: normal visual inspection, trachea midline and no JVD JVD: +5 [...] only without the valsartan. 4. Atherosclerosis of [place] coronary artery of [place] heart without angina pectoris I25.10 08/06/2004 CABG x2 VILLAGRAN side to side to second Diagonal and end to side to Anterior Descending artery in Sequential fashion. C: 08/01/2004; 10/15/2011 Plan She does have a history of coronary artery disease status post carotid bypass surgery 2 as described [...] history of hyperlipidemia and remains on high intensity statin. This would also be continued routine lipid and liver profile would also be obtained. Thank you for allowing me to participate in the care of your patient. 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 transplanted heart: [place] heart Mixed hyperlipidemia E78.2 Hyperlipidemia type: mixed hyperlipidemia Coding Level of Care Code Off vis,est,level 4 Diagnoses Paroxysmal atrial fibrillation I48.0 Cardiomyopathy in diseases classified elsewhere I43 Essential hypertension I10 Hypertension type: essential hypertension Atherosclerosis of [place] coronary artery of [place] heart without angina pectoris I25.10 [place] vs. transplanted heart: [place] heart Mixed hyperlipidemia E78.2 Hyperlipidemia type: mixed hyperlipidemia 09/25/17 1029 <Electronically signed by Jonel Winchester MD> Date Jonel Winchester MD Cosigner Signature: Date (if applicable) CC: Nia Uriostegui DO 12 LEAD ELECTROCARDIOGRAM Observed: 08/26/2017 Status: F Source: ALEJANDRA 1:37 PM [facility] REPOSITORY [facility] Cardiovascular Services [address] [place] [address] 12 Lead EKG 08/24/17 1336 MR#: [id number] Acct: [id number] Name: COMFORT HU Rep #: [id number] : 1940 76 From: Jonel Winchester MD Attending Dr: Status: DEP ER Ordering Dr: Alexis Kemp MD Date: 08/24/17 Location: ED Sex: F C Admitted: Test Reason : POST-CARDIOVERSION Blood Pressure : / mmHG Vent. Rate : 075 [...] lateral ischemia Abnormal ECG Confirmed by JONEL WINCHESTER MD ([id number]), editorial writer AMIRA CASTRO ([id number]) on 08/26/2017 1:37:24 PM Referred By: YONI Confirmed By:JONEL WINCHESTER MD 08/26/17 1337 Date Jonel Winchester MD CC: Nia Uriostegui DO; Alexis Kemp MD Signed 12 LEAD ELECTROCARDIOGRAM Observed: 08/26/2017 Status: F Source: ALEJANDRA 12:50 PM [facility]ITAL REPOSITORY [facility] Cardiovascular Services [address] [place] [address] 12 Lead EKG 08/24/17 0956 MR#: [id number] Acct: [id number] Name: COMFORT HU Rep #: [id number] : 1940 76 From: Jonel Winchester MD Attending Dr: Status: DEP ER Ordering Dr: Alexis Kemp MD Date: 08/24/17 Location: ED Sex: F C Admitted: Test Reason : SOB Blood Pressure : / mmHG Vent. Rate : 132 BPM Atrial Rate : 132 BPM P-R Int : 120 ms QRS Dur : 128 ms QT Int : 348 ms P-R-T Axes : 000 -52 168 degrees QTc Int : 515 ms Atrial flutter with 2:1 block Left axis deviation Non-specific intra-ventricular conduction block T wave abnormality, consider lateral ischemia Abnormal ECG Confirmed by JONEL WINCHESTER MD ([id number]), editorial writer AMIRA CASTRO ([id number]) on 08/26/2017 12:50:18 PM Referred By: YONI Confirmed By:JONEL WINCHESTER MD 08/26/17 1250 Date Jonel Winchester MD CC: Nia Uriostegui DO; Alexis Kemp MD Signed EMERGENCY DEPARTMENT Observed: 08/24/2017 Status: F Source: HIGHSPIRE SUMMARY 1:40 PM [facility] REPOSITORY [facility] Medical Records Department [address] [place] [id number] Emergency Department Summary 08/24/17 1336 MR#: [id number] Acct: [id number] Name: COMFORT HU Rep #: [id number] : 1940 76 From: Alexis Kemp MD PCP: Nia Uriostegui DO Status: REG ER - ER Visit Summary Date of Service: 08/24/17 Chief Complaint: Shortness of breath, rapid heart rate with history of A. fib History of Present Illness: The patient is a 76 F who presents because of rapid heart rate on pulse oximeter reading. She was unaware that her heart was going rapidly. She states yesterday she felt more short of breath and she did Friday. Onset of the shortness was Friday. She denies dyspnea at rest and dyspnea with exertion. She also has a nonproductive cough. She does have one large pillow orthopnea which is unchanged. She denies PND. She denies increased swelling of her lower extremities. She denies any chest pain of any type. She denies any exertional chest discomfort, jaw pain, neck pain or extremity pain. She has no other complaints. Physical Examination: Vital signs remarkable for heart rate 129 and blood pressure 149/91. Head is atraumatic normocephalic. Pupils are equal round reactive. Extraocular muscles are [...] palpable cords test on the description deep venous system. She is alert and oriented 3 with a nonfocal neurologic exam. Test Results: Portable chest x-ray reveals chronic changes with cardiomegaly no evidence of heart failure. EKG atrial flutter rate of 132. There is an intraventricular conduction delay. CBC unremarkable. Electro panels marked for glucose 171 and creatinine 1.21. Troponin with 48 hours of symptoms is less than 0.015. Emergency Department Course and Treatment: To evaluate patient's dyspnea with known history of A. fib, coronary disease EKG, chest x-ray and blood work was obtained. Differential includes A. fib flutter, CHF, pulmonary etiology or anginal equivalent. Treatment Plan: Case was discussed with Dr. Jonel Winchester. He agrees patients in a flutter. Since patient is anticoagulated, Eliquis and has taken her dose of the last 24 hours will cardiovert. Patient was consented. She given opportunity ask questions. None were asked. He is been cardioverted twice in the past without any complications other than nausea on one occasion. Patient received a total of 70 mg of propofol. She was cardioverted with 100 J. Total time for procedure 5 minutes Disposition: Discharged home in stable improved condition Impression: 1. Atrial flutter, rate 132 2. Dyspnea secondary #1 3. Cardioversion 4. Procedural sedation (5 minutes) 5. History of coronary disease This note was generated with ClariFI dictation software. It may contain incorrect words, spelling, and punctuation that were not noted in review of the chart prior to signing ED Disposition - Plan for ED Patient: Disposition: Home or Assisted Living Chief Complaint: Shortness of Breath Instructions: ED Paroxysmal Atrial Flutter Referrals: Nia Uriostegui DO [Primary Care Provider] - Jonel Winchester MD [STAFF PHYSICIAN] - 5-7 Days What to do if you have Problems For any increased pain, shortness of breath, bleeding, nausea or vomiting, chest pain, or any unexpected problems, contact your Primary Care Provider. Call [facility] ([phone]) or report to the closest Emergency Room. Call 911 if necessary. 08/24/17 1340 <Electronically signed by Alexis Kemp MD> Date Alexis Kemp MD Cosigner Signature (If Indicated): Date CC: Jonel Winchester MD; Nia Uriostegui DO BASIC METABOLIC Collected: 08/24/2017 Status: F Source: ALEJANDRA PROFILE (BMP) 9:51 AM [facility] REPOSITORY TYPE CODE TESTS RESULT OUT OF RANGE REFERENCE UNITS LAB L501.0100 74-106 mg/dL High GLU 171 Result Comment: Fasting Glucose result greater than or equal to 126 mg/dL suggests DIABETES MELLITUS per A.D.A. criteria. Please note revised GLUCOSE reference range effective 2017. LAB L501.1000 7-18 mg/dL Normal BUN 14 LAB L501.1100 0.55-1.02 mg/dL High CREAT,SERUM 1.21 Result Comment: The validity of the calculated GFR AND GFRAA in patients over 70 years has not been determined. Clinical correlation is essential. LAB L501.1110 >60 mL/min Low EST GFR 46 Result Comment: Non- GFR Calc LAB L501.1115 >60 mL/min Low EST GFR - AA 56 Result Comment: GFR Calc LAB L501.1255 ml/min Normal Estimated CRCL 35.59 LAB L501.1300 10-20 RATIO Normal BUN/CRE 11.6 LAB L501.2200 8.5-10 mg/dL Normal .1 CA 8.8 LAB L501.5300 136-14 mmol/L Normal 5 NA 139 LAB L501.5600 3.5-5. mmol/L Normal 1 K 4.1 LAB L501.5900 98-107 mmol/L Normal CL 105 LAB L501.6100 21.0-3 mmol/L Normal 2.0 CO2 25.0 LAB L501.6200 5-15 Normal GAP 9 Performed By: #### L500.2500, L501.4010 #### [facility] [address] [place], [address] TROPONIN-I Collected: 08/24/2017 Status: F Source: HIGHSPIRE 9:51 AM [facility] REPOSITORY TYPE CODE TESTS RESULT OUT OF RANGE REFERENCE UNITS LAB L501.4010 <0.045 ng/mL Normal < 0.015 TROPONIN-I Result Comment: TROPONIN-I EXPECTED VALUES <0.045 Negative 0.045 - 0.590 Consistent with Cardiac Damage > OR = 0.600 Critical Value Not every elevated troponin is indicative of CT. These values should be used with clinical judgement in examining the patient's clinical picture for diagnosis. To establish a diagnosis of CT versus myocardial injury, there must be a demonstrated rise and/or fall in the troponin values, in addition to ischemic symptoms, EKG changes, new regional wall motion abnormality, and/or angiographical evidence. PLEASE NOTE: REFERENCE RANGES EDITED 17 Performed By: #### L500.2500, L501.4010 #### [facility] [address] [facility] [place], [address] CBC W/DIFF, AUTOMATED Collected: 08/24/2017 Status: F Source: HIGHSPIRE 9:51 AM [facility] REPOSITORY TYPE CODE TESTS RESULT OUT OF RANGE REFERENCE UNITS LAB L100.1000 4.4-11.0 K/mm3 Normal WBC 9.6 LAB L100.1200 4.2-5.4 M/mm3 Normal RBC 4.77 LAB L100.1300 12.0-15.0 g/dl Normal HGB 12.5 LAB L100.1400 37-47 % Normal HCT 40.3 LAB L100.1500 81-99 fL Normal MCV 84.5 LAB L100.1600 27.0-32.0 pg Low MCH 26.2 LAB L100.1700 32-36 g/gl Low MCHC 31.0 LAB L100.1810 11.6-14.6 % High RDW CV 14.8 LAB L100.1820 35.1-43.9 fl High RDW SD 46.2 LAB L100.1900 150-450 K/mm3 Normal PLT 235 LAB L100.2000 6.2-12.0 fl Normal MPV 10.2 LAB L100.2100 47-70 % Normal NEUT% 62.7 LAB L100.2200 19-41 % Normal LY% 25.3 LAB L100.2300 0-10 % Normal MONO% 9.7 LAB L100.2400 0-5 % Normal EO% 1.5 LAB L100.2500 0-1 % Normal BASO% 0.4 LAB L100.2550 0.0-0.9 % Normal IM GRAN % 0.400 Result Comment: IG% - Immature Granulocytes (promyelocytes, myelocytes and metamyelocytes) > 1% indicates that a LEFT SHIFT is Present. LAB L100.2620 2.0-7.7 X10 3/uL Normal Absolute Neut 6.0 LAB L100.2720 0.83-4.51 X10 3/ul Normal Absolute Lymph 2.43 Performed By: #### L100.0100 #### [facility] [address] [facility] [place], [address] CHEST PA AND LATERAL Observed: 08/24/2017 Status: F Source: HIGHSPIRE 9:48 AM [facility] REPOSITORY [facility] Imaging Services [address] [place] [address] Chest PA and Lateral MR#: [id number] Acct: [id number] Name: COMFORT HU Rep #: [id number] : 1940 F 76 From: Clyde Matute MD PCP: Nia Uriostegui DO Status: REG ER Study: Chest PA and Lateral Date of Exam: 08/24/17 Exam# [id number] Ordering Dr: Alexis Kemp MD STUDY: X-RAY CHEST REASON FOR EXAM: Female, 76 years old. Irregular heart rhythm TECHNIQUE: PA and lateral views of the chest. COMPARISON: May 04, 2017 FINDINGS: There is hyperinflation of the lungs consistent with chronic obstructive lung disease (COPD). There is no demonstrated pleural abnormality. Sternal cerclage wires are present from a prior sternotomy. Moderate cardiac enlargement. Normal mediastinum and emil. Normal visualized pulmonary arteries. Stable right-sided aortic arch There is an increased kyphosis of the thoracic spine. Compression fracture of the lower thoracic spine is stable. Normal visualized ribs, clavicles, and shoulders. There is no demonstrated abnormality of the visualized soft tissue structures of the upper abdomen. RAD/Chest PA and Lateral IMPRESSION: Degenerative changes, as described above. No demonstrated acute cardiopulmonary process. Electronically Signed: Clyde Matute MD at 11:02 EDT , Service support , CC: Nia Uriostegui DO; Alexis Kemp MD Contract Technical Writer: Signed 12 LEAD EKG PERFORMED Observed: 06/02/2017 Status: F Source: [facility] BY [facility] 11:[address] [address] 12 Lead EKG performed by [facility] 06/02/17 1121 MR#: [id number] Acct: [id number] Name: COMFORT HU Rep #: [id number] : 1940 76 From: Michelle BLOOD Attending Dr: Michelle Parsons Status: DEP AMB Ordering Dr: Michelle Parsons Date: 06/02/17 Location: [facility] Sex: F C Admitted: BMS/12 Lead EKG performed by [facility] ECG Report Interpretation Sinus Rhythm -Intraventricular conduction defect and left axis -possible anterior fascicular block consider ventricular hypertrophy. - Nonspecific T-abnormality. ABNORMAL Electronically signed on 06/04/2017 at 14:14 by Jonel Winchester 06/04/17 8667 Date Michelle BLOOD CC: Nia Uriostegui DO Date Dictated: 06/02/17 112 Date Transcribed: 06/02/171120 Contract Technical Writer: BARBY Signed CARDIOLOGY VISIT Observed: 05/29/2017 Status: F Source: [facility] REPORT 2:17 PM [facility] REPOSITORY [facility] [address] [place] [address] OFFICE VISIT Date of Service: 05/26/17 MR#: [id number] Acct: [id number] Name: COMFORT HU Rep #: [id number] : 1940 Provider: Michelle Parsons Age/Sex: 76/F Location: [facility] Status: Signed HPI HPI Details: COMFORT HU, is a 76 F who presents to the office today for an urgent appointment for increased shortness of breath. She was in the office last week for SOB. Her HR was noted to be 31. We decreased her amiodarone and Metoprolol. She came back to the office 2 days later for a repeat EKG, Hr was in the 50's. Patient does have a history of coronary artery disease with bypass surgery in 2004. She had an VILLAGRAN [id number] to second diagonal and to anterior descending [...] HR was 31. We had decreased her amiodarone and metoprolol. Her HR 2 days later was in the 50s. She sts that she felt better on 05/16 when she came in for her EKG. She sts that all weekend she had felt more SOB. She did not feel that her chest ache that she had did not feel [...] She has not had any near syncope/syncope. Intake Vital Signs05/26/17 Height 5 ft 5 in 05/26/17 Weight: 200 lb 05/26/17 Body Mass Index (BMI) 33.3 Intake Visit Reasons: per Susi Cylinder Grinder Required: No Accompanied by: NONE Is patient in pain?: No Allergies No Known Allergies Allergy (Verified 05/26/17 15:11) Medications Aspirin E.C. [Ecotrin] 325 mg PO DAILY@0800 11/11/16 [History Confirmed 05/26/17] Cholecalciferol (Vitamin D3) [Vitamin D3] 2,000 unit PO DAILY 11/11/16 [History Confirmed 05/26/17] Fluticasone/Salmeterol [Advair 500-50 Diskus] 1 puff INHALATION BID 11/11/16 [History Confirmed 05/26/17] Lansoprazole 30 mg PO DAILY 11/11/16 [History Confirmed 05/26/17] Linagliptin [Tradjenta] 5 mg PO DAILY 11/11/16 [History Confirmed 05/26/17] Methscopolamine Casanova 5 mg PO BID 11/11/16 [History Confirmed 05/26/17] Montelukast Sodium [Singulair] 10 mg PO DAILY 11/11/16 [History Confirmed 05/26/17] Nitroglycerin [Nitrostat] 0.4 mg SL DAILY PRN 11/11/16 [History Confirmed 05/26/17] Valsartan [Diovan] 320 mg PO DAILY 11/11/16 [History Confirmed 05/26/17] Albuterol IH (ProAir) [Proair Hfa] 2 puff INHALATION Q4H PRN PRN 11/15/16 [History Confirmed 05/26/17] magnesium oxide 400 mg tablet 400 mg PO DAILY #30 tab 02/12/17 [Rx Confirmed 05/26/17] potassium chloride ER 20 mEq tablet,extended release(part/cryst) 20 meq PO QDAY #30 tab 02/12/17 [Rx Confirmed 05/26/17] furosemide 40 mg tablet 40 mg PO BID #60 tab 02/19/17 [Rx Confirmed 05/26/17] gabapentin 100 mg capsule 100 mg PO BIDCM cap 03/14/17 [History Confirmed 05/26/17] metformin 500 mg tablet 1,000 mg PO BID tab 03/14/17 [History Confirmed 05/26/17] Insulin Detemir [Levemir FlexPen] 17 units SC QHS insuln.pen 04/23/17 [Rx Confirmed 05/26/17] amiodarone 200 mg tablet 200 mg PO QDAY #90 tab 05/18/17 [Rx Confirmed 05/26/17] atorvastatin 40 mg tablet 40 mg PO QHS #90 tab 05/18/17 [Rx Confirmed 05/26/17] metoprolol tartrate 25 mg tablet 25 mg PO BID #60 tab 05/26/17 [Rx Confirmed 05/26/17] Ejection fraction %: 35 to 39 [facility] Medical History Other secondary pulmonary hypertension (Chronic) Cardiomyopathy in diseases classified elsewhere (Chronic) Other cerebral infarction (Chronic) Paroxysmal atrial fibrillation (Chronic) Atrial enlargement, 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) HTN [...] Const Const: Positive for fatigue; negative for weakness, fever(s) or headache(s) Eyes Eyes: Negative for blind spots, loss of peripheral vision or transient loss of vision ENT ENT: Positive for dizziness; negative for headache(s), tinnitus or Nosebleed/epistaxis Cardio Chest Pain: Yes Palpitations: No Edema: None Muscle aches with walking: None Resp Respiratory: Positive for SOB with activity; negative for SOB at rest, SOB orthopnea\SOB lying down or Cough GI GI: Negative nausea, vomiting, heartburn or vomiting blood/hematemesis : Negative for hematuria Musc Musc: Positive for muscle aches/ myalgia and muscle weakness Neuro Neuro: Positive for dizziness and lightheadedness; negative for weakness, headache(s), near syncope, syncope or orthostatic symptoms Ladarius Hematologic/Lymphatic: Negative for easy bleeding Endo Endo: Positive for fatigue Cardiology Exam Const Appearance: cooperative, no acute distress and well developed Orientation: alert, awake and oriented x3 Head Head: normocephalic and atraumatic Mouth: moist mucous membranes Eyes General: appearance normal, both eyes and all related structures Conjunctivae: conjunctivae normal Pupils: PERRL EOM: EOM intact bilaterally Neck Neck: normal visual inspection, no lymphadenopathy and no JVD Carotids: Negative bruit Neck Mass: Negative Neck mass Chest Chest inspection: normal inspection of the chest and symmetric chest movement Auscultation: Bilateral: Clear to Auscultation Cardio Palpation: normal PMI Rate: bradycardic Rhythm: regular rhythm Heart sounds: S1 normal and S2 normal; negative rub, gallop or murmur GI GI: normal to inspection, soft, no hepatosplenomegaly and bowel sounds present; negative tender Neuro General: alert, awake, oriented x3, CN's II-XI intact bilaterally and moves all extremities Extremities Pulses: Normal: Right Posterior Tibial Pulse, Left Posterior Tibial Pulse, Right Radial Pulse, Left Radial Pulse Lower Extremity Edema: None: Bilateral Psych Psychological: normal affect Assessment AND Plan 1. Dyspnea on exertion R06.09 Plan - JEREMI Mcpherson Patient is noted to have sinus bradycardia. Feel that her fatigue and shortness of breath is likely related to this. We will have her decrease her metoprolol to 25 mg twice a day. She will return next week for an EKG. 2. Atherosclerosis of [place] coronary artery of [place] heart without angina pectoris I25.10 08/06/2004 CABG x2 VILLAGRAN side to side to second Diagonal and end to side to Anterior Descending artery in Sequential fashion. [facility]: 08/01/2004; 10/15/2011 Plan - JEREMI Mcpherson . [...] to elevated triglycerides which were 678. Her diabetes is being managed by her primary care doctor. 5. Paroxysmal atrial fibrillation I48.0 Plan - JEREMI Mcpherson Patient has not had any recurrence that she is aware of, she will continue with current dose of amiodarone. She will remain on her amiodarone will need to continue to monitor thyroid and hepatic panels closely in addition to pulmonary function test. Orders Orders: Plan Detail Other Orders Orders: Other Medications New: Discontinued: Additional Comments - JEREMI Mcpherson The above patient was discussed with Dr. Winchester, he agrees with plan of care. Thank [...] 1 Week (EKG) 05/26/17 (keep appt with [facility]) Coding Level of Care Code Off vis,est,level 4 Diagnoses Dyspnea on exertion R06.09 Atherosclerosis of [place] coronary artery of [place] heart without angina pectoris I25.10 [place] vs. transplanted heart: [place] heart Essential hypertension I10 Hypertension type: essential hypertension Mixed hyperlipidemia E78.2 Hyperlipidemia type: mixed hyperlipidemia Paroxysmal atrial fibrillation I48.0 Atrial fibrillation type: paroxysmal Coding Level of Care Code Off vis,est,level 4 Diagnoses Dyspnea on exertion R06.09 Atherosclerosis of [place] coronary artery of [place] heart without angina pectoris I25.10 [place] vs. transplanted heart: [place] heart Essential hypertension I10 Hypertension type: essential hypertension Mixed hyperlipidemia E78.2 Hyperlipidemia type: mixed hyperlipidemia Paroxysmal atrial fibrillation I48.0 Atrial fibrillation type: paroxysmal 05/28/17 1018 <Electronically signed by Michelle BLOOD> Date Michelle BLOOD 05/29/17 1417<Electronically signed by Jonel Winchester MD> Cosigner Signature: Date (if applicable) Jonel Winchester MD CC: Nia Uriostegui DO 12 LEAD EKG PERFORMED Observed: 05/26/2017 Status: F Source: [facility] 3:[address] [address] 12 Lead EKG performed by [facility] 05/26/17 1521 MR#: [id number] Acct: [id number] Name: COMFORT HU Rep #: [id number] : 1940 76 From: Michelle BLOOD Attending Dr: Michelle Parsons Status: DEP AMB Ordering Dr: Michelle Parsons Date: 05/26/17 Location: [facility] Sex: F C Admitted: BMS/12 Lead EKG performed by [facility] ECG Report Interpretation Marked sinus Bradycardia -Poor R-wave progression -nonspecific -consider old anterior infarct. -Nonspecific ST depression -Nondiagnostic. ABNORMAL Electronically signed on 05/27/2017 at 08:40 by Jonel Winchester 05/27/17 0841 Date Michelle BLOOD CC: Nia Uriostegui DO Date Dictated: 05/26/17 1521 Date Transcribed: 05/26/17 152 Contract Technical Writer: BARBY Signed OFFICE VISIT REPORT Observed: 05/16/2017 Status: F Source: [facility] 4:50 PM [facility] [place] [address] OFFICE VISIT Date of Service: 05/16/17 MR#: [id number] Acct: [id number] Patient: COMFORT HU Rep #: [id number] : 1940 Provider: Jonel Winchester MD Age/Sex: 76/F Location: [facility] Status: Signed Intake Intake Visit Reasons: EKG PER MMM Allergies No Known Allergies Allergy (Verified 05/14/17 10:24) Medications Aspirin E.C. [Ecotrin] 325 mg PO DAILY@0800 11/11/16 [History Confirmed 05/14/17] Cholecalciferol (Vitamin D3) [Vitamin D3] 2,000 unit PO DAILY 11/11/16 [History Confirmed 05/14/17] Fluticasone/Salmeterol [Advair 500-50 Diskus] 1 puff INHALATION BID 11/11/16 [History Confirmed 05/14/17] Lansoprazole 30 mg PO DAILY 11/11/16 [History Confirmed 05/14/17] Linagliptin [Tradjenta] 5 mg PO DAILY 11/11/16 [History Confirmed 05/14/17] Methscopolamine Casanova 5 mg PO BID 11/11/16 [History Confirmed [...] 05/14/17] potassium chloride ER 20 mEq tablet,extended release(part/cryst) [...] During OV 05/14/17 pt HR was 31, Michelle Parsons PA-C instructed pt to decrease Amiodarone to 200 mg po daily and decrease Toprol to 50 mg po twice daily. Pt denies chest discomfort, dizziness, however she is SOB with exertion. Ekg today shows Sinus Bradycardia 58 bpm. Michelle Parsons PA-C reviewed vitals and pt is to continue current medication therapy. 05/16/17 1650 <Electronically signed by Michelle BLOOD> Date Michelle BLOOD Cosigner Signature: Date (if applicable) CC: Sarkis Orozco 12 LEAD EKG PERFORMED Observed: 05/16/2017 Status: F Source: [facility] BY [facility] 10:46 AM [facility] REPOSITORY [address] [place] [address] 12 Lead EKG performed by [facility] 05/16/17 1044 MR#: [id number] Acct: [id number] Name: COMFORT HU Rep #: [id number] : 1940 76 From: Michelle BLOOD Attending Dr: Jonel Winchester MD Status: DEP AMB Ordering Dr: Michelle Parsons Date: 05/16/17 Location: [facility] Sex: F C Admitted: [facility]/12 Lead EKG performed by [facility] ECG Report Interpretation Sinus Bradycardia -Poor R-wave progression -may be secondary to pulmonary disease consider old anterior infarct. Rightward P/QRS axis and rotation -possible pulmonary disease. ABNORMAL Electronically signed on 05/17/2017 at 18:31 by Jonel Winchester 05/17/17 1834 Date Michelle BLOOD CC: Nia Uriostegui DO Date Dictated: 05/16/17 1044 Date Transcribed: 05/16/171043 Contract Technical Writer: BARBY Signed CARDIOLOGY VISIT Observed: 05/14/2017 Status: F Source: [facility] REPORT 5:32 PM [facility] REPOSITORY [facility] [address] [place] [address]. [address] [place] [address] OFFICE VISIT Date of Service: 05/14/17 MR#: [id number] Acct: [id number] Name: COMFORT HU Rep #: [id number] : 1940 Provider: Michelle Parsons Age/Sex: 76/F Location: [facility] Status: Signed HPI HPI Details: COMFORT HU, is a 76 F who presents to the office today for an urgent appointment for increased shortness of breath. Patient does have a hospital of coronary artery disease with bypass surgery in 2004. She had an VILLAGRAN [id number] to second diagonal and to anterior descending [...] SOB with any activity. She then notes that she has a dull ache in her chest. She then lays down because of the ache and SOB. She notes that this is almost constant. She rates this discomfort as a 6-7/10. It worsens with activity and improves with rest. It sometimes goes away. She does not feel that she has had recurrence of her AF. EKG today demonstrates marked sinus bradycardia with a heart rate of 31. Intake Vital Signs05/14/17 Height 5 ft 5 in Intake Visit Reasons: per MS Cylinder Grinder Required: No Accompanied by: None Is patient in pain?: Yes (dull ache, mid sternal chest discomfort) Pain scale (1-10): 5 Allergies No Known Allergies Allergy (Verified 05/14/17 10:24) Medications Aspirin E.C. [Ecotrin] 325 mg PO DAILY@0800 11/11/16 [History Confirmed 05/14/17] Cholecalciferol (Vitamin D3) [Vitamin D3] 2,000 unit PO DAILY 11/11/16 [History Confirmed 05/14/17] Fluticasone/Salmeterol [Advair 500-50 Diskus] 1 puff INHALATION BID 11/11/16 [History Confirmed 05/14/17] Lansoprazole 30 mg PO DAILY 11/11/16 [History Confirmed 05/14/17] Linagliptin [Tradjenta] 5 mg PO DAILY 11/11/16 [History Confirmed 05/14/17] Methscopolamine Casanova 5 mg PO BID 11/11/16 [History Confirmed [...] 05/14/17] potassium chloride ER 20 mEq tablet,extended release(part/cryst) [...] enlargement, 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) HTN [...] Positive for weakness and fatigue; negative for fever(s) or headache(s) Eyes Eyes: Negative for blind spots, loss of peripheral vision or transient loss of vision ENT ENT: Negative for headache(s), dizziness, tinnitus or Nosebleed/epistaxis Cardio Chest Pain: No Palpitations: No Edema: None Muscle aches with walking: None Resp Respiratory: Positive for SOB with activity; negative for SOB at rest, SOB orthopnea\SOB lying down or Cough GI GI: Negative nausea, vomiting, heartburn or vomiting blood/hematemesis : Negative for hematuria Musc Musc: Negative for muscle aches/ myalgia Neuro Neuro: Positive for weakness; negative for headache(s), dizziness, near syncope, syncope, lightheadedness or orthostatic symptoms Ladarius Hematologic/Lymphatic: Negative for easy bleeding Endo Endo: Positive for fatigue Cardiology Exam Const Appearance: cooperative, no acute distress and well developed Orientation: alert, awake and oriented x3 Head Head: normocephalic and atraumatic Mouth: moist mucous membranes Eyes General: appearance normal, both eyes and all related structures Conjunctivae: conjunctivae normal Pupils: PERRL EOM: EOM intact bilaterally Neck Neck: normal visual inspection, no lymphadenopathy and no JVD Carotids: Negative bruit Neck Mass: Negative Neck mass Chest Chest inspection: normal inspection of the chest and symmetric chest movement Auscultation: Bilateral: Clear to Auscultation Cardio Palpation: normal PMI Rate: bradycardic Rhythm: regular rhythm Heart sounds: S1 normal and S2 normal; negative rub, gallop or murmur GI GI: normal to inspection, soft, no hepatosplenomegaly and bowel sounds present; negative tender Neuro General: alert, awake, oriented x3, CN's II-XI intact bilaterally and moves all extremities Extremities Pulses: Normal: Right Posterior Tibial Pulse, Left Posterior Tibial Pulse, Right Radial Pulse, Left Radial Pulse Lower Extremity Edema: None: Bilateral Psych Psychological: normal affect Assessment AND Plan 1. Paroxysmal atrial fibrillation I48.0 Plan - JEREMI Mcpherson Patient does have significant bradycardia today. She [...] will return Friday for an EKG 2. Atherosclerosis of [place] coronary artery of [place] heart without angina pectoris I25.10 08/06/2004 CABG x2 VILLAGRAN side to side to second Diagonal and end to side to Anterior Descending artery in Sequential fashion. [facility]: 08/01/2004; 10/15/2011 Plan - JEREMI Mcpherson Stable, from a cardiac standpoint patient does not have any symptoms of angina. We recommend that they continue with current aggressive medical management and risk factor modification. 3. Essential hypertension I10 Plan - JEREMI Mcpherson Blood pressure is well controlled on current medications, we do not recommend any changes at this time. 4. Mixed hyperlipidemia E78.2 Plan - JEREMI Mcpherson Recent lipid profile done during hospital day demonstrates that her triglycerides are elevated at 687 with a total cholesterol 174 and HDL 26. She was started on atorvastatin during that visit. Will need to continue to monitor labs closely. Plan Detail Other Orders Orders: Other Medications Changed: Additional Comments - JEREMI Mcpherson The above patient was discussed with Dr. Winchester, he agrees with plan of care. Thank [...] faxed) Coding Level of Care Code Off vis,est,level 4 Diagnoses Paroxysmal atrial fibrillation I48.0 Atherosclerosis of [place] coronary artery of [place] heart without angina pectoris I25.10 [place] vs. 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 transplanted heart: [place] heart Essential hypertension I10 Hypertension type: essential hypertension Mixed hyperlipidemia E78.2 Hyperlipidemia type: mixed hyperlipidemia 05/14/17 1718 <Electronically signed by Michelle BLOOD> Date Michelle BLOOD 05/14/17 1732<Electronically signed by Jonel Winchester MD> Cosigner Signature: Date (if applicable) Jonel Winchester MD CC: Nia Uriostegui DO 12 LEAD EKG PERFORMED Observed: 05/14/2017 Status: F Source: [facility] 11:05 AM [address] [place] [address] 12 Lead EKG performed by [facility] 05/14/17 1104 MR#: [id number] Acct: [id number] Name: COMFORT HU Rep #: [id number] : 1940 76 From: Michelle BLOOD Attending Dr: Michelle Parsons Status: DEP AMB Ordering Dr: Michelle Parsons Date: 05/14/17 Location: [facility] Sex: F C Admitted: BMS/12 Lead EKG performed by [facility] ECG Report Interpretation Marked sinus Bradycardia -Intraventricular conduction defect -consider left ventricular hypertrophy. -Lateral infarct -age undetermined. - T-abnormality -Possible Inferior and lateral ischemia. ABNORMAL Electronically signed on 05/17/2017 at 18:31 by Jonel Winchester 05/17/17 1834 Date Michelle BLOOD CC: Nia Uriostegui DO Date Dictated: 05/14/17 110 Date Transcribed: 05/14/171103 Contract Technical Writer: BARBY Signed OFFICE VISIT REPORT Observed: 05/09/2017 Status: F Source: [facility] 4:10 PM [facility] [address] [address] OFFICE VISIT Date of Service: 05/09/17 MR#: [id number] Acct: [id number] Patient: COMFORT HU Rep #: [id number] : 1940 Provider: Albert NurseGEOFF Age/Sex: 76/F Location: [facility] Status: Signed Intake Intake Visit Reasons: EKG 4 wk s/p per [facility] Allergies No Known Allergies Allergy (Verified 05/04/17 21:13) Medications Aspirin E.C. [Ecotrin] 325 mg PO DAILY@0800 11/11/16 [History Confirmed 04/19/17] Cholecalciferol (Vitamin D3) [Vitamin D3] 2,000 unit PO DAILY 11/11/16 [History Confirmed 04/19/17] Fluticasone/Salmeterol [Advair 500-50 Diskus] 1 puff INHALATION BID 11/11/16 [History Confirmed 04/19/17] Lansoprazole 30 mg PO DAILY 11/11/16 [History Confirmed 04/19/17] Linagliptin [Tradjenta] 5 mg PO DAILY 11/11/16 [History Confirmed 04/19/17] Methscopolamine Casanova 5 mg PO BID 11/11/16 [History Confirmed 04/19/17] Montelukast Sodium [Singulair] 10 mg PO DAILY 11/11/16 [History Confirmed 04/19/17] Nitroglycerin [Nitrostat] 0.4 mg SL DAILY PRN 11/11/16 [History Confirmed 04/19/17] Valsartan [Diovan] 320 mg PO DAILY 11/11/16 [History Confirmed 04/19/17] Albuterol IH (ProAir) [Proair Hfa] 2 puff INHALATION Q4H PRN PRN 11/15/16 [History Confirmed 05/04/17] magnesium oxide 400 mg tablet 400 mg PO DAILY #30 tab 02/12/17 [Rx Confirmed 04/19/17] potassium chloride ER 20 mEq tablet,extended release(part/cryst) 20 meq PO QDAY #30 tab 02/12/17 [Rx Confirmed 04/19/17] furosemide 40 mg tablet 40 mg PO BID #60 tab 02/19/17 [Rx Confirmed 04/19/17] metoprolol tartrate 100 mg tablet 100 mg PO BID 02/28/17 [History Confirmed 04/19/17] gabapentin 100 mg capsule 100 mg PO BIDCM cap 03/14/17 [History Confirmed 04/19/17] metformin 500 mg tablet 1,000 mg PO BID tab 03/14/17 [History Confirmed 04/19/17] Amiodarone HCl [Cordarone] 200 mg PO BID #60 [...] SR. EKG to be reviewed by Dr. Winchester. 05/09/17 1610 <Electronically signed by Jonel Winchester MD> Date Jonel Winchester MD Cosigner Signature: Date (if applicable) CC: Michelle Seaman 12 LEAD EKG PERFORMED Observed: 05/09/2017 Status: F Source: [facility] 11:11 AM [facility] REPOSITORY [address] [place] [address] 12 Lead EKG performed by [facility] 05/09/17 1110 MR#: [id number] Acct: [id number] Name: COMFORT HU Rep #: [id number] : 1940 76 From: Jonel Winchester MD Attending Dr: Albert Kerr RN Status: DEP AMB Ordering Dr: Jonel Winchester MD Date: 05/09/17 Location: [facility] Sex: F C Admitted: BMS/12 Lead EKG performed by [facility] ECG Report Interpretation Sinus Rhythm -Nonspecific QRS widening and anterior fascicular block. -Poor R-wave progression -nonspecific -consider old anterior infarct. -Nonspecific ST depression -Nondiagnostic. ABNORMAL Electronically signed on 05/17/2017 at 18:31 by Jonel Winchester 05/17/17 1834 Date Jonel Winchester MD CC: Nia Uriostegui DO Date Dictated: 05/09/17 1110 Date Transcribed: 05/09/171109 Contract Technical Writer: [place] Signed 12 LEAD ELECTROCARDIOGRAM Observed: 05/06/2017 Status: F Source: [facility] 1:43 PM [facility] REPOSITORY [facility] Cardiovascular Services [address] [place] [address] 12 Lead EKG 05/04/177 MR#: [id number] Acct: [id number] Name: COMFORT HU Rep #: [id number] : 1940 76 From: Jonel Winchester MD Attending Dr: Status: DEP ER Ordering Dr: Natalya Napoles MD Date: 05/04/17 Location: ED Sex: F C Admitted: Test Reason : REPEAT Blood Pressure : / mmHG Vent. Rate : 077 BPM Atrial Rate : 077 BPM P-R Int : 198 ms QRS Dur : 128 ms QT Int : 408 ms P-R-T Axes : 045 -40 152 degrees QTc Int : 461 ms Normal sinus rhythm Left axis deviation Non-specific intra-ventricular conduction block T wave abnormality, consider lateral ischemia Abnormal ECG Confirmed by JONEL WINCHESTER MD ([id number]), editorial writer AMIRA CASTRO ([id number]) on 05/06/2017 1:42:52 PM Referred By: DONY Confirmed By:JONEL WINCHESTER MD 05/06/17 1342 Date Jonel Winchester MD CC: Natalya Napoles MD; Nia Uriostegui DO Signed 12 LEAD ELECTROCARDIOGRAM Observed: 05/06/2017 Status: F Source: HIGHSPIRE 1:08 PM [facility] REPOSITORY [facility] Cardiovascular Services [address] [place] [address] 12 Lead EKG 05/04/172044 MR#: [id number] Acct: [id number] Name: COMFORT HU Rep #: [id number] : 1940 76 From: Jonel Winchester MD Attending Dr: Status: DEP ER Ordering Dr: Natalya Napoles MD Date: 05/04/17 Location: ED Sex: F C Admitted: Test Reason : PALPITATIONS Blood Pressure : / mmHG Vent. Rate : 129 BPM Atrial Rate : 104 BPM P-R Int : 000 ms QRS Dur : 126 ms QT Int : 346 ms P-R-T Axes : 000 107 242 degrees QTc Int : 506 ms Atrial fibrillation Non-specific intra-ventricular conduction block T wave abnormality, consider inferior ischemia Abnormal ECG Confirmed by JONEL WINCHESTER MD ([id number]), editorial writer AMIRA CASTRO ([id number]) on 05/06/2017 1:08:29 PM Referred By: RICKY NAPOLES Confirmed By:JONEL WINCHESTER MD 05/06/17 1308 Date Jonel Winchester MD CC: Natalya Napoles MD; Nia Uriostegui DO Signed EMERGENCY DEPARTMENT Observed: 05/04/2017 Status: F Source: HIGHSPIRE SUMMARY 11:51 PM [facility] REPOSITORY [facility] Medical Records Department [address] [place] [address] Emergency Department Summary 05/04/17 2259 MR#: [id number] Acct: [id number] Name: COMFORT HU Rep #: [id number] : 1940 76 From: Natalya Napoles MD PCP: Nia Uriostegui DO Status: REG ER - ER Visit Summary Date of Service: 05/04/17 Chief Complaint: Heart racing, shortness of breath History of Present Illness: The patient is a 76 F with a history of paroxysmal atrial fibrillation. Patient was admitted April 19- for A. fib/flutter with RVR. She was [...] meningioma removal. Patient reports having some chest tightness and shortness of breath while she was walking up the hill from the parking area into the emergency room. While sitting at rest at this time she denies shortness of breath or chest pain. Physical Examination: Vital signs reveal blood pressure 152/85, temperature 97.0, heart rate 124, respiratory rate 23, pulse ox 99% on room air. Patient sitting upright in bed no acute distress. Head neck examination is unremarkable. Heart is irregular and tachycardic. Lung sounds are clear. Abdomen is soft and nontender. Extremity examination reveals equal palpable pulses throughout. Test Results: EKG is A. fib at 129. Intraventricular conduction delay is noted. Portable chest x-ray is unremarkable. CBC is significant only for hemoglobin 11.9. Chemistry studies reveal glucose of 184, BUN 22, creatinine 1.26. Troponin is less than 0.02. Emergency Department Course and Treatment: Because the patient is known to be difficult to control with medications, I spoke with Dr. Winchester early in the patient's course. He asked [...] awoke from sedation without difficulty. She has equal strength and sensation throughout without complaint. Patient has been observed to period of 1 hour after her cardioversion is remained stable and in sinus rhythm. She be discharged to home at this time. Treatment Plan: [] Disposition: Discharge Impression: 1. A. fib RVR 2. Electrical cardioversion by ED physician This note was generated with Paxeration software. It may contain incorrect words, spelling, [...] problems, contact your Primary Care Provider. Call [facility] ([phone]) or report to the closest Emergency Room. Call 911 if necessary. 05/04/17 2351 <Electronically signed by Natalya Napoles MD> Date Natalya Napoles MD Cosigner Signature (If Indicated): Date CC: Nia Uriostegui DO DISCHARGE INSTRUCTION Observed: 05/04/2017 Status: F Source: HIGHSPIRE 11:41 PM [facility] REPOSITORY [facility] Medical Records Department [address] [place] [address] Discharge Instruction 05/04/17 2340 MR#: [id number] Acct: [id number] Name: COMFORT HU Rep #: [id number] : 1940 76 From: Natalya Napoles MD PCP: Nia Uriostegui DO Status: REG ER ED Disposition - Plan for ED Patient: Disposition: Home or Assisted Living Chief Complaint: Palpitations Instructions: ED Afib, ED Cardioversion Electrical Referrals: Nia Uriostegui DO [Primary Care Provider] - Jonel Winchester MD [STAFF PHYSICIAN] - Keep Juani appointment What to do if you have Problems For any increased pain, shortness of breath, bleeding, nausea or vomiting, chest pain, or any unexpected problems, contact your Primary Care Provider. Call [facility] ([phone]) or report to the closest Emergency Room. Call 911 if necessary. 05/04/17 2341 <Electronically signed by Natalya Napoles MD> Date Natalya Napoles MD Cosigner Signature (If Indicated): Date CC: Nia Uriostegui DO CHEST 1 VIEW Observed: 05/04/2017 Status: F Source: HIGHSPIRE (PORTABLE) 9:15 PM [facility] REPOSITORY [facility] Imaging Services [address] [place] [address] Chest 1 View (Portable) MR#: [id number] Acct: [id number] Name: COMFORT HU Rep #: [id number] : 1940 F 76 From: Rafael Perez MD PCP: Nia Uriostegui DO Status: REG ER Study: Chest 1 View (Portable) Date of Exam: 05/04/17 Exam# [id number] Ordering Dr: Natalya Napoles MD STUDY: X-RAY CHEST REASON FOR EXAM: Female, 76 years old. Atrial fibrillation TECHNIQUE: Single AP portable view of the chest. COMPARISON: Chest x-ray 04/19/2017, CT scan 11/13/2016. FINDINGS: The lungs are clear and expanded. There is no demonstrated pleural abnormality. Mild cardiomegaly status post CABG. Again seen is a right aortic arch and tortuous aorta. Normal visualized thoracic spine. Normal visualized ribs, clavicles, and shoulders. There is no demonstrated abnormality of the visualized soft tissue structures of the upper abdomen. RAD/Chest 1 View (Portable) IMPRESSION: No acute chest disease. Stable mild cardiomegaly. Electronically Signed: Rafael Perez MD at 21:43 EDT , Service support , CC: Natalya Napoles MD; Nia Uriostegui DO Contract Technical Writer: Signed CBC W/DIFF, AUTOMATED Collected: 05/04/2017 Status: F Source: H[facility]SPIRE 8:56 PM [facility] REPOSITORY TYPE CODE TESTS RESULT OUT OF RANGE REFERENCE UNITS LAB L100.1000 4.4-11.0 K/mm3 Normal WBC 9.3 LAB L100.1200 4.2-5.4 M/mm3 Normal RBC 4.67 LAB L100.1300 12.0-15.0 g/dl Low HGB 11.9 LAB L100.1400 37-47 % Normal HCT 38.7 LAB L100.1500 81-99 fL Normal MCV 82.9 LAB L100.1600 27.0-32.0 pg Low MCH 25.5 LAB L100.1700 32-36 g/gl Low MCHC 30.7 LAB L100.1810 11.6-14.6 % High RDW CV 15.3 LAB L100.1820 35.1-43.9 fl High RDW SD 46.2 LAB L100.1900 150-450 K/mm3 Normal PLT 279 LAB L100.2000 6.2-12.0 fl Normal MPV 10.3 LAB L100.2100 47-70 % Normal NEUT% 52.9 LAB L100.2200 19-41 % Normal LY% 35.4 LAB L100.2300 0-10 % Normal MONO% 9.4 LAB L100.2400 0-5 % Normal EO% 1.7 LAB L100.2500 0-1 % Normal BASO% 0.3 LAB L100.2550 0.0-0.9 % Normal IM GRAN % 0.300 Result Comment: IG% - Immature Granulocytes (promyelocytes, myelocytes and metamyelocytes) > 1% indicates that a LEFT SHIFT is Present. LAB L100.2620 2.0-7.7 X10 3/uL Normal Absolute Neut 4.9 LAB L100.2720 0.83-4.51 X10 3/ul Normal Absolute Lymph 3.30 Performed By: #### L100.0100 #### [facility] [address] [place], [address] BASIC METABOLIC Collected: 05/04/2017 Status: F Source: HIGHSPIRE PROFILE (BMP) 8:56 PM [facility] REPOSITORY Order Comment: 'TROP' Serial specimen #1, #2, #3, or #4: 1 TYPE CODE TESTS RESULT OUT OF RANGE REFERENCE UNITS LAB L501.0100 74-106 mg/dL High GLU 184 Result Comment: Fasting Glucose result greater than or equal to 126 mg/dL suggests DIABETES MELLITUS per A.D.A. criteria. Please note revised GLUCOSE reference range effective 2017. LAB L501.1000 7-18 mg/dL High BUN 22 LAB L501.1100 0.55-1.02 mg/dL High CREAT,SERUM 1.26 Result Comment: The validity of the calculated GFR AND GFRAA in patients over 70 years has not been determined. Clinical correlation is essential. LAB L501.1110 >60 mL/min Low EST GFR 44 Result Comment: Non- GFR Calc LAB L501.1115 >60 mL/min Low EST GFR - AA 53 Result Comment: GFR Calc LAB L501.1255 ml/min Normal Estimated CRCL 34.18 LAB L501.1300 10-20 RATIO Normal BUN/CRE 17.5 LAB L501.2200 8.5-10 mg/dL Normal .1 CA 8.5 LAB L501.5300 136-14 mmol/L Normal 5 NA 142 LAB L501.5600 3.5-5. mmol/L Normal 1 K 4.4 LAB L501.5900 98-107 mmol/L Normal CL 104 LAB L501.6100 21.0-3 mmol/L Normal 2.0 CO2 27.0 LAB L501.6200 5-15 Normal GAP 11 Performed By: #### L500.2500, L501.4010 #### [facility] [address] [place], [address] TROPONIN-I Collected: 05/04/2017 Status: F Source: [facility]IGHSPIRE 8:56 PM [facility] REPOSITORY Order Comment: 'TROP' Serial specimen #1, #2, #3, or #4: 1 TYPE CODE TESTS RESULT OUT OF RANGE REFERENCE UNITS LAB L501.4010 <0.06 ng/mL Normal < 0.02 TROPONIN-I Result Comment: TROPONIN-I EXPECTED VALUES <0.05 NEGATIVE 0.06 - 0.[address] > OR = 0.[address] Performed By: #### L500.2500, L501.4010 #### [facility] [address] [facility] [place], [address] DISCHARGE SUMMARY Observed: 04/29/2017 Status: F Source: HIGHSPIRE 1:02 PM [facility] REPOSITORY [facility] Medical Records Department [address] [place] [address] Discharge Summary 04/23/17 1535 MR#: [id number] Acct: [id number] Name: COMFORT HU Rep #: [id number] : 1940 76 From: Doyle BLOOD PCP: Nia Uriostegui DO Status: DIS IN Y Location: [place] [address] ADDENDUM by Soraida Cisse on 04/29/17 at 1301 Code Visit This patient was seen in conjunction with Doyle BLOOD. I have independently interviewed and examined the patient and reviewed pertinent historical, laboratory and other data. Please refer to Doyle's discharge summary note for details of this patient's presentation, findings and recommendations. I have reviewed these note and concur fully with documented findings. In brief, patient is a 76YO female admitted with atrial fibrillation with rapid ventricular response. Heart rate at presentation to the emergency room was in the 130s. She was admitted to a monitored bed on PCU and cardiology consult was obtained with Dr. Jonel Winchester. Anticoagulation was held due to a history of meningioma. She was taking metoprolol 100 mg twice daily and Cardizem at home. Dr. Winchester started amiodarone. The heart rate came under better control and the Cardizem infusion was discontinued. She failed to convert to normal sinus rhythm and a OLIVER was done on 04/23/2017 and showed no evidence of left atrial appendage thrombus. Cardioversion was then undertaken and the patient converted to normal sinus rhythm. She was later discharged home and was given a prescription for amiodarone and atorvastatin. She will resume metoprolol 100 mg twice daily. Physical examination:Alert and oriented 3. No apparent distress. Heart-regular rate and rhythm, no gallop, no murmur, no rub. Lungs-clear to auscultation. No peripheral edema. Assessment: 1. Paroxysmal atrial fibrillation with rapid ventricular response 2. Ischemic cardiomyopathy with a 35% ejection fraction 3. Coronary artery disease 4. History of meningioma -anticoagulation for paroxysmal atrial fib due to this. I have discussed my assessment with Doyle Nye and orders have been written. Inpatient E AND M: 75022 Disch Hosp 04/29/17 1302 <Electronically signed by Kasia Cisse DO> Date Kasia Cisse DO cc: JEREMI Nye; Soraida Cisse; Nia Uriostegui DO * Signed Discharge Date and Diagnosis Date of Admission: 04/19/17 Date of Discharge: 04/23/17 - Primary Discharge Diagnosis Paroxysmal AF/Flutter with RVR CAD Cardiomyopathy HLD Elevated troponin T2DM Mild normocytic anemia - Secondary Discharge Diagnosis Chronic Problems (Last Updated 03/14/17 @ 10:05 by Sarkis Orozco) Other secondary pulmonary hypertension (Chronic) Cardiomyopathy in diseases classified elsewhere (Chronic) Other cerebral infarction (Chronic) Paroxysmal atrial fibrillation (Chronic) Presence of aortocoronary bypass graft (Chronic) 08-06-04 CABG x2 VILLAGRAN side to side to second Diagonal and end to side to Anterior Descending artery in Sequential fashion Atrial enlargement, 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) 08/06/2004 CABG x2 VILLAGRAN side to side to second Diagonal and end to side to Anterior Descending artery in Sequential fashion. [facility]: 08/01/2004; 10/15/2011 HTN (hypertension) (Chronic) HLD (hyperlipidemia) (Chronic) Asthma (Chronic) Heart failure with preserved ejection fraction (Chronic) Atrial fibrillation (Chronic) Gout (Chronic) Hypertension (Chronic) DM2 (diabetes mellitus, type 2) (Chronic) Obesity (Chronic) Meningioma (Chronic) Obesity (BMI 30.0-34.9) (Chronic) Diabetes mellitus type 2 in obese (Chronic) Non-ST elevation myocardial infarction (NSTEMI) due to mismatch of myocardial oxygen supply and demand (Chronic) Hypomagnesemia (Chronic) Hypokalemia (Chronic) Atrial fibrillation with RVR (Chronic) Hospital Course and Treatment Imaging Results: RAD/Chest 1 View (Portable) IMPRESSION: No acute thoracic pathology. OLIVER: Interpretation Summary Normal LV size. The estimated ejection fraction is 45 %. Mild global left ventricular systolic dysfunction. The left atrium is moderately enlarged. No thrombus is detected in the left atrial appendage. Mild (1+) eccentric mitral valve insufficiency. Consultations: Cardiology-Annabella Operations: None Procedures: Cardioversion, Transesophageal Echo Summary of Care Provided: Physical exam on day of discharge: General: Resting comfortably NAD Psych: A/Ox3 normal affect HEENT: PEARRLA AT NC Neck: Supple NT CV: irregularly irreg no m/t/r/g/h Resp: CTA Abd: [id number] Soft NT no guarding or rigidity Ext: DP2+= no edema Skin: W/D normal turgor Lymph/Heme: No active bleeding or adenopathy Neuro: CN2-12 intact Hospital course: The patient is a 76 year old F who presented to the ER with chest tightness off and on for months with palpitations and an elevated pulse. She was found to have elevated troponin and Afib with RVR. She was admitted and Cardiology consulted. She has a hx of PAF, CAD with CABG Nov 2016 with subsequent heart cath x 2 for chest tightness, systolic heart failure, DMt2, and a meningioma that was surgically removed. She is not on oral anticoagulants except full strength aspirin because of the meningioma removal. She had been on metoprolol and diltiazem at home and she was started on IV amiodarone. Cardiology noted chronic troponin elevation with recent aggressive workup as above and no further workup was indicated. She was unable to have her rhythm controlled with cardizem and amiodarone. She underwent successful cardioversion. Following the cardioversion she was initiated on amiodarone PO and told to continue full strength aspirin and her previous metoprolol dose. She was also started on atorvastatin while here. Her levemir was slightly increased. She needs to follow up with cardiology, her prior neurologist, and with her PCP. She is in stable condition and discharged home. This patient was seen by Doyle Nye PA-C under the supervision of Doctor Jonah. [] Discharge Diet: Low fat/ Low Cholesterol, 1800 Calorie Control Diet, 2000 mg Sodium Diet Discharge Activity: Return to Normal Activity Home Medications: Medications to take at Discharge Aspirin E.C. [Ecotrin] 325 mg PO DAILY@0800 11/11/16 Cholecalciferol (Vitamin D3) [Vitamin D3] 2,000 unit PO DAILY 11/11/16 Fluticasone/Salmeterol [Advair 500-50 Diskus] 1 puff INHALATION BID 11/11/16 Lansoprazole 30 mg PO DAILY 11/11/16 Linagliptin [Tradjenta] 5 mg PO DAILY 11/11/16 Methscopolamine Casanova 5 mg PO BID 11/11/16 Montelukast Sodium [Singulair] 10 mg PO DAILY 11/11/16 Nitroglycerin [Nitrostat] 0.4 mg SL DAILY PRN 11/11/16 Valsartan [Diovan] 320 mg PO DAILY 11/11/16 Albuterol IH (ProAir) [Proair Hfa] 2 puff INHALATION Q4H PRN PRN 11/15/16 magnesium oxide 400 mg tablet 400 mg PO DAILY #30 tab 02/12/17 potassium chloride ER 20 mEq tablet,extended release(part/cryst) 20 meq PO QDAY #30 tab 02/12/17 furosemide 40 mg tablet 40 mg PO BID #60 tab 02/19/17 metoprolol tartrate 100 mg tablet 100 mg PO BID 02/28/17 gabapentin 100 mg capsule 100 mg PO BIDCM cap 03/14/17 metformin 500 mg tablet 1,000 mg PO BID tab 03/14/17 Amiodarone HCl [Cordarone] 200 mg PO BID #60 tab 04/23/17 Atorvastatin Calcium [Lipitor] 40 mg PO QHS #30 tab 04/23/17 Insulin Detemir [Levemir FlexPen] 17 units SC QHS insuln.pen 04/23/17 Following Prescrptions Were Given to Patient: Amiodarone HCl [Cordarone] 200 mg PO BID #60 tab Atorvastatin Calcium [Lipitor] 40 mg PO QHS #30 tab Primary Care Physician: Nia Uriostegui DO [Primary Care Provider] - Please follow up with your Primary Care Physician in: 1-2 weeks Please Follow Up With: Jonel Winchester MD When: 1-2 weeks Please Follow Up With: Neurology When: 3-4 weeks Disposition: Home Minutes spent on discharge:: 35 Patient Condition:: Stable Meaningful Use Info Meaningful Use Diagnoses (Choose all that apply): None applicable 04/23/17 1545 <Electronically signed by Doyle BLOOD> Date Doyle BLOOD 04/29/17 1254<Electronically signed by Kasia Cisse DO> Cosigner Signature (if applicable): Date Kasia Cisse DO CC: JEREMI Nye; Soraida Cisse; Nia Uriostegui DO Signed 12 LEAD ELECTROCARDIOGRAM Observed: 04/25/2017 Status: F Source: HIGHSPIRE 1:39 PM [facility] REPOSITORY [facility] Cardiovascular Services [address] [place] [address] 12 Lead EKG 04/22/17 1841 MR#: [id number] Acct: [id number] Name: COMFORT HU Rep #: [id number] : 1940 76 From: Jonel Winchester MD Attending Dr: Soraida Cisse Status: DIS IN Ordering Dr: Jonel Winchester MD Date: 04/22/17 Location: [facility] Sex: F C Admitted: 04/20/17 Test Reason : Blood Pressure : / mmHG Vent. Rate : 084 BPM Atrial Rate : 084 BPM P-R Int : 000 ms QRS Dur : 122 ms QT Int : 396 ms P-R-T Axes : 000 -35 172 degrees QTc Int : 467 ms Atrial fibrillation Left axis deviation Anterior infarct , age undetermined Intra ventricular conduction delay Abnormal ECG When compared with ECG of 20-APR-2017 14:43, MANUAL COMPARISON REQUIRED, DATA IS UNCONFIRMED Confirmed by JONEL WINCHESTER MD ([id number]), editorial writer AMIRA CASTRO ([id number]) on 04/25/2017 1:39:37 PM Referred By: Jonel Winchester Confirmed By:JONEL WINCHESTER MD 04/25/17 1339 Date Jonel Winchester MD CC: Jonel Winchester MD; Nia Uriostegui DO Signed 12 LEAD ELECTROCARDIOGRAM Observed: 04/25/2017 Status: F Source: [place]SPIRE 1:37 PM [facility] REPOSITORY [facility] Cardiovascular Services [address] [place] [address] 12 Lead EKG 04/23/17 0524 MR#: [id number] Acct: [id number] Name: COMFORT HU Rep #: [id number] : 1940 76 From: Jonel Winchester MD Attending Dr: Soraida Cisse Status: DIS IN Ordering Dr: Jonel Winchester MD Date: 04/23/17 Location: [facility] Sex: F C Admitted: 04/20/17 Test Reason : AM EKG Blood Pressure : / mmHG Vent. Rate : 063 BPM Atrial Rate : 252 BPM P-R Int : 000 ms QRS Dur : 124 ms QT Int : 438 ms P-R-T Axes : 050 -37 181 degrees QTc Int : 448 ms Atrial flutter Left axis deviation ST AND T wave abnormality, consider lateral ischemia Abnormal ECG When compared with ECG of 22-APR-2017 18:41, MANUAL COMPARISON REQUIRED, DATA IS UNCONFIRMED Confirmed by JONEL WINCHESTER MD ([id number]), editorial writer AMIRA CASTRO ([id number]) on 04/25/2017 1:37:32 PM Referred By: Jonel Winchester Confirmed By:JONEL WINCHESTER MD 04/25/17 1337 Date Jonel Winchester MD CC: Jonel Winchester MD; Nia Uriostegui DO Signed 12 LEAD ELECTROCARDIOGRAM Observed: 04/23/2017 Status: F Source: ALEJANDRA 4:22 PM [facility] REPOSITORY [facility] Cardiovascular Services [address] [place] [address] 12 Lead EKG 04/20/17 1346 MR#: [id number] Acct: [id number] Name: COMFORT HU Rep #: [id number] : 1940 76 From: Jonel Winchester MD Attending Dr: Soraida Cisse Status: ADM IN Ordering Dr: Farrukh Davis DO Date: 04/20/17 Location: [facility] Sex: F C Admitted: 04/20/17 Test Reason : Blood Pressure : / mmHG Vent. Rate : 130 BPM Atrial Rate : 130 BPM P-R Int : 112 ms QRS Dur : 122 ms QT Int : 350 ms P-R-T Axes : 000 -24 198 degrees QTc Int : 515 ms Atrial flutter Marked ST abnormality, possible inferolateral subendocardial injury Abnormal ECG When compared with ECG of 19-APR-2017 17:25, MANUAL COMPARISON REQUIRED, DATA IS UNCONFIRMED Confirmed by JONEL WINCHESTER MD ([id number]), editorial writer AMIRA CASTRO ([id number]) on 04/23/2017 4:21:32 PM Referred By: Jonel Winchester Confirmed By:JONEL WINCHESTER MD 04/23/17 1621 Date Jonel Winchester MD CC: Farrukh Davis DO; Nia Uriostegui DO Signed 12 LEAD ELECTROCARDIOGRAM Observed: 04/23/2017 Status: F Source: ALEJANDRA 4:22 PM [facility] REPOSITORY [facility] Cardiovascular Services [address] [place] [address] 12 Lead EKG 04/20/17 1443 MR#: [id number] Acct: [id number] Name: COMFORT HU Rep #: [id number] : 1940 76 From: Jonel Winchester MD Attending Dr: Soraida Cisse Status: ADM IN Ordering Dr: Farrukh Davis DO Date: 04/20/17 Location: U Sex: F C Admitted: 04/20/17 Test Reason : RHYTHM CHANGE Blood Pressure : / mmHG Vent. Rate : 067 BPM Atrial Rate : 277 BPM P-R Int : 000 ms QRS Dur : 128 ms QT Int : 422 ms P-R-T Axes : 074 -26 166 degrees QTc Int : 445 ms Atrial flutter Non-specific intra-ventricular conduction block T wave abnormality, consider lateral ischemia Abnormal ECG When compared with ECG of 20-APR-2017 13:46, MANUAL COMPARISON REQUIRED, DATA IS UNCONFIRMED Confirmed by ANNABELLA ROSAS, JONEL ([id number]), editorial writer AMIRA CASTRO ([id number]) on 04/23/2017 4:21:43 PM Referred By: Jonel Winchester Confirmed By:JONEL WINCHESTER MD 04/23/17 1621 Date Jonel Winchester MD CC: Farrukh Davis DO; Nia Uriostegui DO Signed BEDSIDE GLUCOSE Collected: 04/23/2017 Status: F Source: ALEJANDRA 4:04 PM [facility] REPOSITORY TYPE CODE TESTS RESULT OUT OF REFERENCE UNITS RANGE LAB L501.080 70-110 mg/dL High BEDSIDE GLU 157 Result Comment: MANAGEMENT OF PATIENT CARE PER NURSING PROTOCOL Performed By: #### L501.080 #### [facility] Point of Care [address] [place] [address] DISCHARGE INSTRUCTION Observed: 04/23/2017 Status: F Source: ALEJANDRA 3:35 PM [facility] REPOSITORY [facility] Medical Records Department [address] [place] [address] Instructions for Home/Discharge Instructions 04/23/17 1533 MR#: [id number] Acct: [id number] Name: COMFORT HU Rep #: [id number] : 1940 76 From: Doyle BLOOD PCP: Nia Uriostegui DO Status: ADM IN You will use the following diet at home:: Calorie/Carbohydrate Controlled (specify 1200, 1400, etc) - 1800 jyoti/day, Cardiac - 2 g sodium per day Your food should be the consistency of: Regular Your liquids should be the consistency of: Regular/Thin Discharge Activity: Return to Normal Activity Allergies/Adverse Reactions: Allergies No Known Allergies Allergy (Verified 03/14/17 10:06) Medications to take at Discharge Aspirin E.C. [Ecotrin] 325 mg PO DAILY@0800 11/11/16 Cholecalciferol (Vitamin D3) [Vitamin D3] 2,000 unit PO DAILY 11/11/16 Fluticasone/Salmeterol [Advair 500-50 Diskus] 1 puff INHALATION BID 11/11/16 Lansoprazole 30 mg PO DAILY 11/11/16 Linagliptin [Tradjenta] 5 mg PO DAILY 11/11/16 Methscopolamine Casanova 5 mg PO BID 11/11/16 Montelukast Sodium [Singulair] 10 mg PO DAILY 11/11/16 Nitroglycerin [Nitrostat] 0.4 mg SL DAILY PRN 11/11/16 Valsartan [Diovan] 320 mg PO DAILY 11/11/16 Albuterol IH (ProAir) [Proair Hfa] 2 puff INHALATION Q4H PRN PRN 11/15/16 magnesium oxide 400 mg tablet 400 mg PO DAILY #30 tab 02/12/17 potassium chloride ER 20 mEq tablet,extended release(part/cryst) 20 meq PO QDAY #30 tab 02/12/17 furosemide 40 mg tablet 40 mg PO BID #60 tab 02/19/17 metoprolol tartrate 100 mg tablet 100 mg PO BID 02/28/17 gabapentin 100 mg capsule 100 mg PO BIDCM cap 03/14/17 metformin 500 mg tablet 1,000 mg PO BID tab 03/14/17 Amiodarone HCl [Cordarone] 200 mg PO BID #60 tab 04/23/17 Atorvastatin Calcium [Lipitor] 40 mg PO QHS #30 tab 04/23/17 Insulin Detemir [Levemir FlexPen] 17 units SC QHS insuln.pen 04/23/17 The following prescriptions were given: Amiodarone HCl [Cordarone] 200 mg PO BID #60 tab Atorvastatin Calcium [Lipitor] 40 mg PO QHS #30 tab Primary Care Physician: Nia Uriostegui DO [Primary Care Provider] - Please follow up with your Primary Care Physician in: 1-2 weeks Please Follow Up With: Jonel Winchester MD When: 1-2 weeks Please Follow Up With: Neurology When: 3-4 weeks Proposed Discharge Date: 04/23/17 04/23/17 1535 <Electronically signed by Doyle BLOOD> Date Doyle BLOOD CC: Jonel Winchester MD; Nia Uriostegui DO ECHO TRANSESOPHAGEAL (OLIVER) Observed: 04/23/2017 Status: F Source: HIGHSPIRE 2:53 PM [facility] REPOSITORY [facility] Cardiovascular Services [address] [place] [address] Echo Transesophageal (OLIVER) 04/23/17 1052 MR#: [id number] Acct: [id number] Name: COMFORT HU Rep #: [id number] : 1940 76 From: Jonel Winchester MD Attending Dr: Soraida Cisse Status: ADM IN Ordering Dr: Jonel Winchester MD Date: 04/23/17 Location: U Sex: F C Admitted: 04/20/17 Reason For Study: A. fib/flutter Medication OLIVER probe passed without difficulty. No complications were noted. Cetacaine Topical [place] given X3 orally. Versed 2 mg given slow IVP. Fentanyl 25 mcg given slow IVP. Performed a rapid injection of agitated mix of 9 cc saline and 1cc air to assess for atrial septal defect. Left Ventricle Normal LV size. The estimated ejection fraction is 45 %. Mild global left ventricular systolic dysfunction. No regional wall motion abnormalities noted. Right Ventricle Normal RV size. Normal systolic function. Atria Intact atrial septum. No doppler evidence for ASD. The left atrium is moderately enlarged. No thrombus is detected in the left atrial appendage. Normal right atrium. Prominent eustachian valve. Mitral Valve Mild diffuse mitral valve thickening. Mild (1+) eccentric mitral valve insufficiency. Tricuspid Valve Normal tricuspid valve. Aortic Valve Trisinus/trileaflet aortic valve. Pulmonic Valve The pulmonic valve is not well visualized. Pericardium No pericardial effusion. Interpretation Summary Normal LV size. The estimated ejection fraction is 45 %. Mild global left ventricular systolic dysfunction. The left atrium is moderately enlarged. No thrombus is detected in the left atrial appendage. Mild (1+) eccentric mitral valve insufficiency. Ordering Physician: Jonel Winchester Referring Physician: Nia Uriostegui M.D. Performed By: Brigitte Mccoy RDCS 04/23/17 1452 Date Jonel Winchester MD CC: Jonel Winchester MD; Nia Uriostegui DO Date Dictated: 04/23/17 1052 Date Transcribed: 04/23/17 1452 Contract Technical Writer: Signed OPERATIVE REPORT Observed: 04/23/2017 Status: F Source: ALEJANDRA 2:49 PM [facility] REPOSITORY [facility] Medical Records Department [address] [place] [address] Operative Report 04/23/17 1445 MR#: [id number] Acct: [id number] Name: COMFORT HU Rep #: [id number] : 1940 76 From: Jonel Winchester MD PCP: Nia Uriostegui DO Status: ADM IN Location: [place] [id number] Operative Report Date of Procedure: 04/23/17 Atrial flutter Patient underwent a OLIVER earlier today which demonstrated no evidence of left atrial appendage thrombus. The patient was seen by Dr. Motta of the pulmonary critical care division. After appropriate informed consent was obtained anterior posterior pads were applied over her chest and back respectively. 200 J of synchronized DC cardioversion energy were applied after patient was appropriately sedated with 4 mg of intravenous etomidate. Patient reverted to sinus rhythm with a short period of her sinus pause. Patient tolerated the procedure well with no neurological deficit. Postoperative EKG demonstrated normal sinus rhythm. Next Conclusion 1. successful DC cardioversion from atrial flutter unresponsive to medical therapy. Patient cannot be anticoagulated long-term due to previous cranial surgery.. 04/23/17 1449 <Electronically signed by Jonel Winchester MD> Date Jonel Winchester MD CC: Jonel Winchester MD; Nia Uriostegui DO Signed OPERATIVE REPORT Observed: 04/23/2017 Status: F Source: HIGHSPIRE 1:49 PM [facility] REPOSITORY [facility] Medical Records Department [address] [place] [id number] Operative Report 04/23/17 1346 MR#: [id number] Acct: [id number] Name: COMFORT HU Rep #: [id number] : 1940 76 From: Kwame Motta DO PCP: Nia Uriostegui DO Status: ADM IN Location: [facility] [id number] Operative Report Date of Procedure: 04/23/17 CONSCIOUS SEDATION REPORT DATE OF SERVICE: April 23, 2017 BRIEF HISTORY OF PRESENT ILLNESS: The patient is a 76-year-old female who was admitted to the hospital on April 20 with heart palpitations and chest tightness. She was subsequently found to be in atrial fibrillation with a rapid ventricular rate. She did undergo a transesophageal echocardiogram which revealed an ejection fraction of 40-45%. She does endorse a history of obstructive sleep apnea, for which she reports compliance with nocturnal Pap therapy. She also reports having a history of asthma. She reports no previous anesthetic complications. She denies any drug allergies. PHYSICAL EXAMINATION: VITAL SIGNS: Reviewed and were acceptable. GENERAL: The patient is an obese female, in no apparent distress, speaking in full sentences. HEENT: Normocephalic, atraumatic. Mucous membranes are moist and pink. Good mouth opening noted. Trachea is midline. Good neck mobility. CHEST: S1, S2 irregularly irregular. No murmurs, rubs or gallops were noted. LUNGS: Clear to auscultation bilaterally without appreciable wheezes, rales or rhonchi. ABDOMEN: Soft, nontender, nondistended. Positive bowel sounds. EXTREMITIES: There is no clubbing, cyanosis or edema. ASA Class: II DESCRIPTION OF PROCEDURE: After confirmation of informed consent, the patient's anesthesia plan was reviewed in detail. Etomidate was chosen. Risks and benefits were reviewed and the patient agreed to proceed. At 1301, the patient was given 4 mg of etomidate. The patient achieved an appropriate level of sedation and was given a 200 joule synchronized cardioversion by Dr. Winchester at the bedside. This was successful in achieving normal sinus rhythm. The patient was monitored until 1312, at which time she reached her baseline mental status and function. The patient tolerated the procedure well. COMPLICATIONS: None ESTIMATED BLOOD LOSS: None RECOMMENDATIONS: Okay to recover in usual fashion. 04/23/17 1349 <Electronically signed by Kwame Motta DO> Date Kwame Motta DO CC: Jonel Winchester MD; Kwame Motta D.O.; Nia Uriostegui DO Signed BEDSIDE GLUCOSE Collected: 04/23/2017 Status: F Source: ALEJANDRA 1:45 PM [facility] REPOSITORY TYPE CODE TESTS RESULT OUT OF REFERENCE UNITS RANGE LAB L501.080 70-110 mg/dL High BEDSIDE GLU 141 Result Comment: MANAGEMENT OF PATIENT CARE PER NURSING PROTOCOL Performed By: #### L501.080 #### [place] [facility] Point of Care [address] [place] [address] BEDSIDE GLUCOSE Collected: 04/23/2017 Status: F Source: ALEJANDRA 6:43 AM [facility] REPOSITORY TYPE CODE TESTS RESULT OUT OF REFERENCE UNITS RANGE LAB L501.080 70-110 mg/dL High BEDSIDE GLU 150 Result Comment: MANAGEMENT OF PATIENT CARE PER NURSING PROTOCOL Performed By: #### L501.080 #### [facility] Point of Care [address] [place] [address] BEDSIDE GLUCOSE Collected: 04/22/2017 Status: F Source: ALEJANDRA 9:37 PM [facility] REPOSITORY TYPE CODE TESTS RESULT OUT OF REFERENCE UNITS RANGE LAB L501.080 70-110 mg/dL High BEDSIDE GLU 168 Result Comment: MANAGEMENT OF PATIENT CARE PER NURSING PROTOCOL Performed By: #### L501.080 #### [facility] Point of Care [address] [place] [address] BEDSIDE GLUCOSE Collected: 04/22/2017 Status: F Source: ALEJANDRA 4:38 PM [facility] REPOSITORY TYPE CODE TESTS RESULT OUT OF REFERENCE UNITS RANGE LAB L501.080 70-110 mg/dL High BEDSIDE GLU 174 Result Comment: MANAGEMENT OF PATIENT CARE PER NURSING PROTOCOL Performed By: #### L501.080 #### [facility] Point of Care [address] [place] [address] BEDSIDE GLUCOSE Collected: 04/22/2017 Status: F Source: ALEJANDRA 11:21 AM [facility] REPOSITORY TYPE CODE TESTS RESULT OUT OF REFERENCE UNITS RANGE LAB L501.080 70-110 mg/dL High BEDSIDE GLU 180 Result Comment: MANAGEMENT OF PATIENT CARE PER NURSING PROTOCOL Performed By: #### L501.080 #### [facility] Point of Care [address] [place] [address] BEDSIDE GLUCOSE Collected: 04/22/2017 Status: F Source: ALEJANDRA 6:47 AM [facility] REPOSITORY TYPE CODE TESTS RESULT OUT OF REFERENCE UNITS RANGE LAB L501.080 70-110 mg/dL High BEDSIDE GLU 155 Result Comment: MANAGEMENT OF PATIENT CARE PER NURSING PROTOCOL Performed By: #### L501.080 #### [facility] Point of Care [address] [place] [address] BEDSIDE GLUCOSE Collected: 04/21/2017 Status: F Source: ALEJANDRA 9:38 PM [facility] REPOSITORY TYPE CODE TESTS RESULT OUT OF REFERENCE UNITS RANGE LAB L501.080 70-110 mg/dL High BEDSIDE GLU 160 Result Comment: MANAGEMENT OF PATIENT CARE PER NURSING PROTOCOL Performed By: #### L501.080 #### [facility] Point of Care [address] [place] [address] BEDSIDE GLUCOSE Collected: 04/21/2017 Status: F Source: ALEJANDRA 4:09 PM [facility] REPOSITORY TYPE CODE TESTS RESULT OUT OF REFERENCE UNITS RANGE LAB L501.080 70-110 mg/dL High BEDSIDE GLU 153 Result Comment: Orders Followed Insulin Given MANAGEMENT OF PATIENT CARE PER NURSING PROTOCOL Performed By: #### L501.080 #### [facility] Point of Care [address] [place] [address] 12 LEAD ELECTROCARDIOGRAM Observed: 04/21/2017 Status: F Source: [place]SPIRE 3:15 PM [facility] REPOSITORY [facility] Cardiovascular Services [address] [place] [address] 12 Lead EKG 04/19/17 1725 MR#: [id number] Acct: [id number] Name: COMFORT HU Rep #: [id number] : 1940 76 From: Jonel Winchester MD Attending Dr: Soraida Cisse Status: ADM IN Ordering Dr: Deisi Ryan MD Date: 04/19/17 Location: U Sex: F C Admitted: 04/20/17 Test Reason : TACHYCARDIA Blood Pressure : / mmHG Vent. Rate : 119 BPM Atrial Rate : 256 BPM P-R Int : 000 ms QRS Dur : 126 ms QT Int : 366 ms P-R-T Axes : 000 -21 137 degrees QTc Int : 514 ms Atrial flutter with variable A-V block with premature ventricular or aberrantly conducted complexes Non-specific intra-ventricular conduction block T wave abnormality, consider lateral ischemia Abnormal ECG Confirmed by JONEL WINCHESTER MD ([id number]), editorial writer AMIRA CASTRO ([id number]) on 04/21/2017 3:15:31 PM Referred By: Jonel Winchester Confirmed By:JONEL WINCHESTER MD 04/21/17 7241 Date Jonel Winchester MD CC: Deisi Ryan MD; Nia Uriostegui DO Signed BEDSIDE GLUCOSE Collected: 04/21/2017 Status: F Source: ALEJANDRA 11:22 AM [facility] REPOSITORY TYPE CODE TESTS RESULT OUT OF REFERENCE UNITS RANGE LAB L501.080 70-110 mg/dL High BEDSIDE GLU 199 Result Comment: MANAGEMENT OF PATIENT CARE PER NURSING PROTOCOL Performed By: #### L501.080 #### [facility] Point of Care [address] [place], [place] [address] BEDSIDE GLUCOSE Collected: 04/21/2017 Status: F Source: ALEJNADRA 6:54 AM [facility] REPOSITORY TYPE CODE TESTS RESULT OUT OF REFERENCE UNITS RANGE LAB L501.080 70-110 mg/dL High BEDSIDE GLU 153 Result Comment: MANAGEMENT OF PATIENT CARE PER NURSING PROTOCOL Performed By: #### L501.080 #### [facility] Point of Care [address] [place], [place] [address] CBC W/DIFF, AUTOMATED Collected: 04/21/2017 Status: F Source: ALEJANDRA 5:24 AM [facility] REPOSITORY TYPE CODE TESTS RESULT OUT OF RANGE REFERENCE UNITS LAB L100.1000 4.4-11.0 K/mm3 Normal WBC 8.3 LAB L100.1200 4.2-5.4 M/mm3 Normal RBC 4.30 LAB L100.1300 12.0-15.0 g/dl Low HGB 11.2 LAB L100.1400 37-47 % Low HCT 35.4 LAB L100.1500 81-99 fL Normal MCV 82.3 LAB L100.1600 27.0-32.0 pg Low MCH 26.0 LAB L100.1700 32-36 g/gl Low MCHC 31.6 LAB L100.1810 11.6-14.6 % High RDW CV 14.9 LAB L100.1820 35.1-43.9 fl Normal RDW SD 43.8 LAB L100.1900 150-450 K/mm3 Normal PLT 207 LAB L100.2000 6.2-12.0 fl Normal MPV 10.4 LAB L100.2100 47-70 % Normal NEUT% 66.4 LAB L100.2200 19-41 % Normal LY% 22.9 LAB L100.2300 0-10 % Normal MONO% 8.9 LAB L100.2400 0-5 % Normal EO% 1.4 LAB L100.2500 0-1 % Normal BASO% 0.2 LAB L100.2550 0.0-0.9 % Normal IM GRAN % 0.200 Result Comment: IG% - Immature Granulocytes (promyelocytes, myelocytes and metamyelocytes) > 1% indicates that a LEFT SHIFT is Present. LAB L100.2620 2.0-7.7 X10 3/uL Normal Absolute Neut 5.5 LAB L100.2720 0.83-4.51 X10 3/ul Normal Absolute Lymph 1.90 Performed By: #### L100.0100 #### [facility] [facility]. [place], [place], [address] BASIC METABOLIC Collected: 04/21/2017 Status: F Source: [place]SPIRE PROFILE (BMP) 5:24 AM [facility] REPOSITORY TYPE CODE TESTS RESULT OUT OF RANGE REFERENCE UNITS LAB L501.0100 74-106 mg/dL High GLU 161 Result Comment: Fasting Glucose result greater than or equal to 126 mg/dL suggests DIABETES MELLITUS per A.D.A. criteria. Please note revised GLUCOSE reference range effective 2017. LAB L501.1000 7-18 mg/dL High BUN 23 LAB L501.1100 0.55-1.02 mg/dL Normal CREAT,SERUM 1.00 Result Comment: The validity of the calculated GFR AND GFRAA in patients over 70 years has not been determined. Clinical correlation is essential. LAB L501.1110 >60 mL/min Low EST GFR 57 Result Comment: Non- GFR Calc LAB L501.1115 >60 mL/min Normal EST GFR - AA 69 Result Comment: GFR Calc LAB L501.1255 ml/min Normal Estimated CRCL 41.33 LAB L501.1300 10-20 RATIO High BUN/CRE 23.0 LAB L501.2200 8.5-10 mg/dL Normal .1 CA 8.6 LAB L501.5300 136-14 mmol/L Normal 5 NA 137 LAB L501.5600 3.5-5. mmol/L Normal 1 K 4.4 LAB L501.5900 98-107 mmol/L Normal CL 101 LAB L501.6100 21.0-3 mmol/L Normal 2.0 CO2 27.0 LAB L501.6200 5-15 Normal GAP 9 Performed By: #### L500.2500 #### [facility] [address] [place], [address] MAGNESIUM Collected: 04/21/2017 Status: F Source: ALEJANDRA 5:24 AM [facility] REPOSITORY TYPE CODE TESTS RESULT OUT OF RANGE REFERENCE UNITS LAB L501.5200 1.6-2.6 mg/dL Normal MG 1.8 Result Comment: Please note revised Magnesium reference range effective 2017. Performed By: #### L501.5200 #### [facility] [address] [facility] [place], [address] BEDSIDE GLUCOSE Collected: 04/20/2017 Status: F Source: ALEJANDRA 9:41 PM [facility] REPOSITORY TYPE CODE TESTS RESULT OUT OF REFERENCE UNITS RANGE LAB L501.080 70-110 mg/dL High BEDSIDE GLU 175 Result Comment: MANAGEMENT OF PATIENT CARE PER NURSING PROTOCOL Performed By: #### L501.080 #### [facility] Point of Care [address] [facility] [place] [address] BEDSIDE GLUCOSE Collected: 04/20/2017 Status: F Source: ALEJANDRA 4:47 PM [facility] REPOSITORY TYPE CODE TESTS RESULT OUT OF REFERENCE UNITS RANGE LAB L501.080 70-110 mg/dL High BEDSIDE GLU 164 Result Comment: Dr Orders Followed Insulin Given MANAGEMENT OF PATIENT CARE PER NURSING PROTOCOL Performed By: #### L501.080 #### [facility] Point of Care [address] [place] [address] BEDSIDE GLUCOSE Collected: 04/20/2017 Status: F Source: ALEJANDRA 11:17 AM [facility] REPOSITORY TYPE CODE TESTS RESULT OUT OF REFERENCE UNITS RANGE LAB L501.080 70-110 mg/dL High BEDSIDE GLU 198 Result Comment: Dr Orders Followed Insulin Given MANAGEMENT OF PATIENT CARE PER NURSING PROTOCOL Performed By: #### L501.080 #### [facility] Point of Care [address] [place] [address] CONSULTATION Observed: 04/20/2017 Status: F Source: ALEJANDRA 10:42 AM [facility] REPOSITORY [facility] Medical Records Department [address] [place] [address] Consultation 04/20/17 1033 MR#: [id number] Acct: [id number] Name: COMFORT HU Rep #: [id number] : 1940 76 From: Jonel Winchester MD PCP: Nia Uriostegui DO Status: ADM NEDA Y Location: [place] [address] Reason for Consult Date of Consultation: 04/20/17 Reason for Consultation: Fast heart rate. History of Present Illness: The patient is a 76 year old F with a history of known coronary artery disease paroxysmal atrial fibrillation hypertension hyperlipidemia who presented to the emergency room yesterday complaining of palpitations. She had called me early on in the day telling me that she felt her heart rate was out of rhythm. She was instructed to take an extra metoprolol which she did but after 2 hours there was no improvement in her rhythm and so she presented to the emergency room. She had complained of mild shortness of breath but no chest discomfort. You do remember that she does have a history of coronary artery bypass surgery and in November 2016 she presented with a similar finding with mildly abnormal troponins and underwent a cardiac catheterization. It demonstrated a normal size left main coronary artery with 30% distal stenosis, left anterior descending artery which was totally occluded, a first diagonal vessel with 75% stenosis, left circumflex artery with 30% stenosis. The first obtuse marginal branch had a 75% proximal stenosis in the right coronary artery had a 30% stenosis. She was brought back a few days later and underwent a left internal mammary artery catheterization which was patent to the left anterior descending artery. Medical therapy was recommended. At that time she was noted to have a globally reduced ejection fraction of approximately 35%. She was evaluated in the office and had been doing well until this recent episode.] At this particular time she just feels her mild palpitations. She is also mildly short of breath. Past Medical History Allergies/Adverse Reactions: Allergies No Known Allergies Allergy (Verified 03/14/17 10:06) Home Medications: Ambulatory Orders Medication Instructions Recorded Aspirin E.C. [Ecotrin] 325 mg PO DAILY@0800 11/11/16 Cholecalciferol (Vitamin D3) 2,000 unit PO DAILY 11/11/16 [Vitamin D3] Fluticasone/Salmeterol [Advair 1 puff INHALATION BID 11/11/16 Past Medical History (Chronic Problems): Chronic Problems (Last Updated 03/14/17 @ 10:05 by Sarkis Orozco) Other secondary pulmonary hypertension (Chronic) Cardiomyopathy in diseases classified elsewhere (Chronic) Other cerebral infarction (Chronic) Paroxysmal atrial fibrillation (Chronic) Presence of aortocoronary bypass graft (Chronic) 08-06-04 CABG x2 VILLAGRAN side to side to second Diagonal and end to side to Anterior Descending artery in Sequential fashion Atrial enlargement, 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) 08/06/2004 CABG x2 VILLAGRAN side to side to second Diagonal and end to side to Anterior Descending artery in Sequential fashion. C: 08/01/2004; 10/15/2011 HTN (hypertension) (Chronic) HLD (hyperlipidemia) (Chronic) Asthma (Chronic) Heart failure with preserved ejection fraction (Chronic) Atrial fibrillation (Chronic) Gout (Chronic) Hypertension (Chronic) DM2 (diabetes mellitus, type 2) (Chronic) Obesity (Chronic) Meningioma (Chronic) Obesity (BMI 30.0-34.9) (Chronic) Diabetes mellitus type 2 in obese (Chronic) Non-ST elevation myocardial infarction (NSTEMI) due to mismatch of myocardial oxygen supply and demand (Chronic) Hypomagnesemia (Chronic) Hypokalemia (Chronic) Atrial fibrillation with RVR (Chronic) Surgical History: - - Brain surgery - *Family History Maternal Family History: Family History (Last Updated 03/14/17 @ 10:06 by Sarkis Orozco) Father CAD (coronary artery disease) Mother CAD (coronary artery disease) Brother CAD (coronary artery disease) Sister CAD (coronary artery disease) Myocardial infarction History Items: No pertinent history Paternal Family History: Family History (Last Updated 03/14/17 @ 10:06 by Sarkis Orozco) Father CAD (coronary artery disease) Mother CAD (coronary artery disease) Brother CAD (coronary artery disease) Sister CAD (coronary artery disease) Myocardial infarction History Items: No pertinent history Lives: Spouse/ Significant Other Smoking Status: Never smoker Alcohol: None Drugs: None Review of Systems - Review of Systems General: Denies: Fever, Night Sweats, Fatigue Cardiovascular: Reports: Shortness of Breath, Shortness of Breath at Rest, Shortness of Breath with Exertion, Palpitations. Denies: Chest Discomfort, Orthopnea, PND, Peripheral Edema, Lightheadedness, Dizziness, Near Syncope, Syncope Respiratory: Denies: Cough, Sputum Production, Hemoptysis Gastrointestinal: Denies: Hematemesis, Hematochezia, Melena Genitourinary: Denies: Dysuria, Hematuria Skin: Denies: Rash Subjectve: Pleasant lady in mild respiratory distress only. Objective: Vital Signs Temp Pulse Resp BP Pulse Ox 97.8 F 130 H 14 111/67 96 04/20/17 09:24 04/20/17 09:24 04/20/17 09:24 04/20/17 09:24 04/20/17 09:24 Oxygen Delivery Method Room Air Weight: 192 lb 14.472 oz Body Mass Index (BMI) 32.1 Intake and Output for Last 24 Hours Intake Total 238 / 238 464 / 464 Balance 238 / 238 464 / 464 General: Awake, Alert, Oriented x 3 HEENT: PERRL, EOMI, Sclera Non Icteric Neck: Supple, Good ROM, No Lymph Node Enlargement Lungs: Diminished Messi Bases Cardiovascular: Irregular Rhythm, Normal S1, Normal S2, No Murmurs, No Rubs, No Gallops Vascular: No Carotid Bruits, Normal Femoral Pulses, Normal Radial Pulses, Normal Dorsalis Pedal Pulse, Normal Posterior Tibial Pulses Abdomen: Bowel Sounds Present, Soft, Non Tender, No HSM, No Organomegaly Extremities: No Cyanosis, No Clubbing, No edema Neurological: No Focal Motor or Sensory Deficit 04/19/17 21:30: Troponin I 0.15 H 04/20/17 01:28: Troponin I 0.16 H 04/20/17 06:35: WBC 6.8, RBC 4.21, Hgb 10.9 L, Hct 34.5 L, MCV 81.9, MCH 25.9 L, MCHC 31.6 L, RDW 14.9 H, RDW Differential 43.3, Plt Count 239, MPV 10.3, Immature Gran % (Auto) 0.300, Neut % (Auto) 55.2, Lymph % (Auto) 33.4, Door % (Auto) 8.5, Eos % (Auto) 2.2, Baso % (Auto) 0.4, Absolute Neuts (auto) 3.8, Total Counted Not Reportable 04/20/17 06:35: Sodium 139, Potassium 4.3, Chloride 105, Carbon Dioxide 25.0, Anion Gap 9, BUN 27 H, Creatinine 1.00, Est GFR (MDRD) Af Amer 69, Est GFR (MDRD) Non-Af 57 L, BUN/Creatinine Ratio 27.0 H, Glucose 152 H, Calcium 8.2 L, Total Bilirubin 0.30, Triglycerides 687 H, Cholesterol 174, LDL Cholesterol TNP, VLDL Cholesterol TNP, HDL Cholesterol 26 L 04/20/17 06:35: Troponin I 0.16 H Rhythm: EKG: Atrial flutter with a rapid ventricular response rate of 119 bpm. ECHO: Global ejection fraction estimated to be 35% in November 2016 Assessment/Plan 1. Paroxysmal atrial fibrillation Patient presents with another paroxysm of atrial fibrillation. As you know she does have a history of a meningioma and anticoagulation has been discouraged. She has been on the beta-carolyn with metoprolol 100 mg twice a day as well as Cardizem. My recommendation at this time is to consider adding amiodarone to her regimen. I will start by loading her up with intravenous amiodarone as this appears to be an event less than 24 hours old. If she successfully converted to sinus rhythm then I may suggest the addition of oral amiodarone to help stable future episodes of the atrial fibrillation. 2, coronary artery disease. She does have a history of coronary artery disease. She has patent stents which were recently documented as well as [place] vessel disease which is not amenable to angioplasty. She does have mildly chronically elevated troponins but did not meet the criteria for plaque rupture. I suspect the above is secondary to her paroxysmal atrial fibrillation. At this time I do not think there is a reason to reevaluate her coronary anatomy. 3. Hypertension Her blood pressure appears to be under good control on the current medical therapy with the beta-carolyn, Cardizem and valsartan. This will be continued except for the Cardizem which will be held temporarily. Her potassium can also be discontinued. 4. Cardiomyopathy She did have her left ventricular function evaluated and was noted to have an ejection fraction of approximately 35% in February 2017. I do not think there is a reason to repeat this. We will attempt to keep her in sinus rhythm and after 3 months an echo repeated as I think that this may be tachycardia mediated. 5. Hyperlipidemia She will continue with aggressive risk factor modification and lipid-lowering. Thank you for allowing me to participate in the care of your patient. Please don't hesitate to call if any issues arise 04/20/17 1042 <Electronically signed by Jonel Winchester MD> Date Jonel Winchester MD Cosigner Signature (if applicable): Date CC: Jonel Winchester MD; Nia Uriostegui DO Signed BEDSIDE GLUCOSE Collected: 04/20/2017 Status: F Source: [place] 6:57 AM [facility] REPOSITORY TYPE CODE TESTS RESULT OUT OF REFERENCE UNITS RANGE LAB L501.080 70-110 mg/dL High BEDSIDE GLU 126 Result Comment: MANAGEMENT OF PATIENT CARE PER NURSING PROTOCOL Performed By: #### L501.080 #### [facility] Point of Care [address] [place], [place] [address] TROPONIN-I Collected: 04/20/2017 Status: F Source: [place] 6:35 AM [facility] REPOSITORY Order Comment: 'TROP' Serial specimen #1, #2, #3, or #4: 4 TYPE CODE TESTS RESULT OUT OF RANGE REFERENCE UNITS LAB L501.4010 <0.06 ng/mL High 0.16 TROPONIN-I Result Comment: TROPONIN-I EXPECTED VALUES <0.05 NEGATIVE 0.06 - 0.[address] > OR = 0.[address] Performed By: #### L501.4010 #### [facility] [address] [place], [place], [address] CBC W/DIFF, AUTOMATED Collected: 04/20/2017 Status: F Source: [place] 6:35 AM [facility] REPOSITORY TYPE CODE TESTS RESULT OUT OF RANGE REFERENCE UNITS LAB L100.1000 4.4-11.0 K/mm3 Normal WBC 6.8 LAB L100.1200 4.2-5.4 M/mm3 Normal RBC 4.21 LAB L100.1300 12.0-15.0 g/dl Low HGB 10.9 LAB L100.1400 37-47 % Low HCT 34.5 LAB L100.1500 81-99 fL Normal MCV 81.9 LAB L100.1600 27.0-32.0 pg Low MCH 25.9 LAB L100.1700 32-36 g/gl Low MCHC 31.6 LAB L100.1810 11.6-14.6 % High RDW CV 14.9 LAB L100.1820 35.1-43.9 fl Normal RDW SD 43.3 LAB L100.1900 150-450 K/mm3 Normal PLT 239 LAB L100.2000 6.2-12.0 fl Normal MPV 10.3 LAB L100.2100 47-70 % Normal NEUT% 55.2 LAB L100.2200 19-41 % Normal LY% 33.4 LAB L100.2300 0-10 % Normal MONO% 8.5 LAB L100.2400 0-5 % Normal EO% 2.2 LAB L100.2500 0-1 % Normal BASO% 0.4 LAB L100.2550 0.0-0.9 % Normal IM GRAN % 0.300 Result Comment: IG% - Immature Granulocytes (promyelocytes, myelocytes and metamyelocytes) > 1% indicates that a LEFT SHIFT is Present. LAB L100.2620 2.0-7.7 X10 3/uL Normal Absolute Neut 3.8 LAB L100.2720 0.83-4.51 X10 3/ul Normal Absolute Lymph 2.28 Performed By: #### L100.0100 #### [facility] [address] [place], [place], [id number] COMPREHENSIVE METABOLIC Collected: 04/20/2017 Status: F Source: [facility] [facility] 6:35 AM [facility] REPOSITORY TYPE CODE TESTS RESULT OUT OF RANGE REFERENCE UNITS LAB L501.0100 74-106 mg/dL High GLU 152 Result Comment: Fasting Glucose result greater than or equal to 126 mg/dL suggests DIABETES MELLITUS per A.D.A. criteria. Please note revised GLUCOSE reference range effective 2017. LAB L501.1000 7-18 mg/dL High BUN 27 LAB L501.1100 0.55-1.02 mg/dL Normal CREAT,SERUM 1.00 Result Comment: The validity of the calculated GFR AND GFRAA in patients over 70 years has not been determined. Clinical correlation is essential. LAB L501.1110 >60 mL/min Low EST GFR 57 Result Comment: Non- GFR Calc LAB L501.1115 >60 mL/min Normal EST GFR - AA 69 Result Comment: GFR Calc LAB L501.1255 ml/min Normal Estimated CRCL 41.33 LAB L501.1300 10-20 RATIO High BUN/CRE 27.0 LAB L501.1500 6.4-8. g/dL Low 2 T PROT 6.2 LAB L501.1800 3.2-5. g/dL Low 0 ALB 3.1 LAB L501.1950 2.2-4. g/dL Normal 2 GLOB 3.1 LAB L501.2000 0.9-2. RATIO Normal 4 A/G 1.0 LAB L501.2200 8.5-10 mg/dL Low .1 CA 8.2 LAB L501.4100 15-37 U/L Low AST 10 LAB L501.4305 45-117 U/L Normal ALK P 87 LAB L501.4405 13-56 U/L Low ALT 9 Result Comment: Please note revised ALT reference range effective 2017. LAB L501.4600 0.20-1.00 mg/dL Normal T BILI 0.30 LAB L501.5300 136-145 mmol/L Normal NA 139 LAB L501.5600 3.5-5.1 mmol/L Normal K 4.3 LAB L501.5900 98-107 mmol/L Normal CL 105 LAB L501.6100 21.0-32.0 mmol/L Normal CO2 25.0 LAB L501.6200 5-15 Normal GAP 9 Performed By: #### L500.4050, L500.4100, L501.9520 #### [facility] [address] [place], [place], [id number] LIPID PROFILE Collected: 04/20/2017 Status: F Source: [place] 6:35 AM [facility] REPOSITORY TYPE CODE TESTS RESULT OUT OF RANGE REFERENCE UNITS LAB L501.4900 200 mg/dL Normal CHOL 174 Result Comment: <200 mg/dL Desirable 200-240 mg/dL Borderline >240 mg/dL High Risk LAB L501.5000 mg/dL High TRIG 687 Result Comment: The drugs N-Acetylcysteine and Metamizole may falsely depress this assay. TRIGLYCERIDE IS GREATER THAN 400 mg/dL. LDL RESULT IS INVALID AND WILL NOT BE REPORTED. Serum Triglycerides Reference Interval Normal <150 mg/dL Borderline high 150 - 199 mg/dL High 200 - 499 mg/dL Very High > or = 500 mg/dL LAB L501.6400 mg/dL Low HDL 26 Result Comment: The drugs N-Acetylcysteine and Metamizole may falsely depress this assay. Reference Range HDL <40 mg/dL Low HDL Cholesterol HDL >or= 60 mg/dL High HDL Cholesterol LAB L501.6500 0-130 mg/dL Test Normal not performed LDL LAB L501.6600 5-40 mg/dL Test Normal not performed VLDL Performed By: #### L500.4050, L500.4100, L501.9520 #### [facility] [address] [place], [place], [address] THYROID STIM HORMONE Collected: 04/20/2017 Status: F Source: [place]A ([facility]) 6:35 AM [facility] REPOSITORY TYPE CODE TESTS RESULT OUT OF RANGE REFERENCE UNITS LAB L501.9520 0.358-3.74 uIU/mL Normal TSH 1.32 Performed By: #### L500.4050, L500.4100, L501.9520 #### [facility] [address] [place], [address] HISTORY AND PHYSICAL Observed: 04/20/2017 Status: F Source: [place] EXAM 5:36 AM [facility] REPOSITORY [facility] Medical Records Department [address] [place] [address] History and Physical 04/19/172014 MR#: [id number] Acct: [id number] Name: COMFORT HU Rep #: [id number] : 1940 76 From: Truong Cordova MD PCP: Nia Uriostegui DO Status: ADM NEDA Y Location: [place] [address] Problem List (1) Atherosclerotic heart disease of [place] coronary artery without angina pectoris Status: Chronic Qualifiers: [place] vs. transplanted heart: [place] heart Qualified Code(s): I25.10 - Atherosclerotic heart disease of [place] coronary artery without angina pectoris Comment: 08/06/2004 CABG x2 VILLAGRAN side to side to second Diagonal and end to side to Anterior Descending artery in Sequential fashion. LHC: 08/01/2004; 10/15/2011 (2) Atrial fibrillation Status: Chronic Qualifiers: Atrial fibrillation type: paroxysmal Qualified Code(s): I48.0 - Paroxysmal atrial fibrillation (3) Atrial fibrillation with RVR Status: Chronic (4) Cardiomyopathy in diseases classified elsewhere Status: Chronic (5) DM2 (diabetes mellitus, type 2) Status: Chronic Qualifiers: Diabetes mellitus ferry terminal agent insulin use: without assisted use Diabetes mellitus complication status: without complication Qualified Code(s): E11.9 - Type 2 diabetes mellitus without complications (6) Diabetes mellitus type 2 in obese Status: Chronic History of Present Illness Date of Admission: 04/19/17 Chief Complaint: Afib with RVR The patient is a 76 year old female w/ h/o CAD, HTN, DMII, and afib admitted for afib with RVR. Pt has been having chest tightness off and on for the past months. Nothing made it worse or better. It would last for a few minutes and would resolved. However, yesterday prior to admission, she felt it more. The intensity and frequency increased. She had palpitation associated with intermittent chest tightness. She measured her pulse and it was n the 130s. She called her cardiology who recommended her to take an extra dose but her heart rate was still elevated. She was recommended to be evaluated in the ED. She is admitted for afib with RVR. 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 [facility]: 08/01/2004; 10/15/2011 HTN (hypertension) (Chronic) HLD (hyperlipidemia) (Chronic) Asthma (Chronic) Heart failure with preserved ejection fraction (Chronic) Atrial fibrillation (Chronic) Gout (Chronic) Hypertension (Chronic) DM2 (diabetes mellitus, type 2) (Chronic) Obesity (Chronic) Meningioma (Chronic) Obesity (BMI 30.0-34.9) (Chronic) Diabetes mellitus type 2 in obese (Chronic) Non-ST elevation myocardial infarction (NSTEMI) due to mismatch of myocardial oxygen supply and demand (Chronic) Hypomagnesemia (Chronic) Hypokalemia (Chronic) Atrial fibrillation with RVR (Chronic) Allergies No Known Allergies Allergy (Verified 03/14/17 10:06) Home Medications: Ambulatory Orders Medication Instructions Recorded Aspirin E.C. [Ecotrin] 325 mg PO DAILY@0800 11/11/16 Cholecalciferol (Vitamin D3) 2,000 unit PO DAILY 11/11/16 [Vitamin D3] Fluticasone/Salmeterol [Advair 1 puff INHALATION BID 11/11/16 Surgical History: - - Brain surgery Smoking Status: Never smoker - *Family History Maternal History Items: No pertinent history Paternal History Items: No pertinent history Review of Systems Constitutional: Denies: Chills, Fever, Weight Change HEENT: Denies: Head Aches, Sinus Congestion, Sinus Drainage Cardiovascular: Reports: Chest Pain, Chest Tightness. Denies: Palpitations Respiratory: Denies: Cough, Shortness of breath at rest, Sputum production Gastrointestinal: Denies: Abdominal Pain, Nausea, Vomiting Genitourinary: Denies: Dysuria Musculoskeletal: Denies: Joint Pain, Joint Tenderness Skin: Denies: Rash, Wounds Neurological: Denies: Numbness, Tingling, Focal weakness Psychiatric: Denies: Anxiety, Depression, Homicidal Ideations, Suicidal Ideations Hematologic/ Lymphatic: Denies: Easy Bruising, Easy Bleeding VTE Information - Inpt Only VTE Present on Admission: No VTE Mechan Device Prophylaxis: SCD's VTE Pharm Prophylaxis ordered?: Yes - Physical Exam General: Alert, Oriented x3, Cooperative HEENT: Atraumatic, PERRLA, EOMI, Normocephalic Neck: Supple, No JVD, Negative Carotid Bruits Lungs: Clear to auscultation, Normal air movement Cardiovascular: No murmurs, Irregular Rate Abdomen: Bowel Sounds Present, Soft, Non Tender Extremities: No edema, Capillary Refill Less than 3 Seconds Skin: No rashes, No breakdown Musculoskeletal: No Tenderness to Palpation of Joints or Extremities Neurological: Cranial nerves II-XII grossly intact Psych/Mental Status: Normal Affect, Appropriate Vital Signs Temp Pulse Resp BP Pulse Ox 97.6 F L 125 H 18 112/73 97 04/19/17 17:16 04/19/17 20:09 04/19/17 20:09 04/19/17 20:09 04/19/17 20:09 Oxygen Delivery Method Room Air Weight: 88.5 kg Body Mass Index (BMI) 32.4 Laboratory Tests Past 24 Hrs WBC 10.4 RBC 4.70 Hgb 12.0 Hct 38.6 MCV 82.1 MCH 25.5 L MCHC 31.1 L RDW 14.9 H RDW Differential 44.6 H Assessment/Plan 76 year old female w/ h/o CAD, HTN, DMII, and afib admitted for afib with RVR. 1) Afib with RVR: Pt took an extra dose of metoprolol at home. Will resume home meds. No anticoagulation given h/o meningioma removal surgery several years ago. Will defer to neurosurgery if anticoagulation is acceptable given h/o remote surgery. Rate control. Monitor. 2) Chest pain: Heart score 5 Will get serial trops. ECHO in AM. Consulted cards. 3) H/o CAD, HTN and DMII: Resume home meds. 4) Prophylaxis: SCD / heparin 04/20/17 0536 <Electronically signed by Truong Cordova MD> Date Truong Cordova MD Cosigner Signature: Date (if applicable) CC: Nia Uriostegui DO; Truong Cordova MD Signed TROPONIN-I Collected: 04/19/2017 Status: F Source: [place] 9:30 PM [facility] REPOSITORY Order Comment: 'TROP' Serial specimen #1, #2, #3, or #4: 2 TYPE CODE TESTS RESULT OUT OF RANGE REFERENCE UNITS LAB L501.4010 <0.06 ng/mL High 0.15 TROPONIN-I Result Comment: TROPONIN-I EXPECTED VALUES <0.05 NEGATIVE 0.06 - 0.[address] > OR = 0.[address] Performed By: #### L501.4010 #### [facility] [address] [facility] [address] BEDSIDE GLUCOSE Collected: 04/19/2017 Status: F Source: [place] 9:26 PM [facility] REPOSITORY TYPE CODE TESTS RESULT OUT OF REFERENCE UNITS RANGE LAB L501.080 70-110 mg/dL High BEDSIDE GLU 182 Result Comment: MANAGEMENT OF PATIENT CARE PER NURSING PROTOCOL Performed By: #### L501.080 #### [facility] Point of Care [address] [place], [place] [address] EMERGENCY DEPARTMENT Observed: 04/19/2017 Status: F Source: [place] SUMMARY 7:31 PM [facility] REPOSITORY [facility] Medical Records Department [address] [place] [address] Emergency Department Summary 04/19/17 1757 MR#: [id number] Acct: [id number] Name: COMFORT HU Rep #: [id number] : 1940 76 From: Deisi Ryan MD PCP: Nia Uriostegui DO Status: REG ER - ER Visit Summary Date of Service: 04/19/17 Chief Complaint: Palpitations History of Present Illness: The patient is a 76 F presenting with palpitations and intermittent chest tightness. She states she took her pulse at home and it was in the 130s. She called Dr. Winchester and was advised to take an extra dose of metoprolol. She normally takes metoprolol 100 mg twice daily. She states she was advised to come to the ED if this did not improve. Her heart rate remains in the 130s. She states she has a history of paroxysmal A. fib. Her last episode of A. fib was approximately 3 years ago. She is not on blood thinners secondary to previous brain surgery. Physical Examination: Vitals are stable. Patient is afebrile. Alert no acute distress. HEENT exam is unremarkable. Neck is supple. Lungs are clear and equal bilaterally. Heart is irregular and tachycardic Abdomen is soft nontender nondistended. Extremities symmetric edema Skin is warm and dry. No focal neurologic deficit. Remainder of exam is unremarkable. Emergency Department Course and Treatment: She was given aspirin on arrival. EKG shows A. fib with RVR. Chest x-ray shows no acute process. CBC is normal. Chemistries show glucose 173, BUN 29, creatinine 1.16. Troponin is indeterminate 0.14. She was given Cardizem IV. Repeat heart rate is 94. Discussed with Dr. Winchester and the hospitalist. Patient will be admitted to telemetry. Disposition: Observation Impression: A. fib with RVR This note was generated with [employer] dictation software. It may contain incorrect words, [...] your Primary Care Provider. Call [facility] ([phone]) or report to the closest Emergency Room. Call 911 if necessary. 04/19/17 1931 <Electronically signed by Deisi Ryan MD> Date Deisi Ryan MD Cosigner Signature (If Indicated): Date CC: Nia Uriostegui DO CBC W/DIFF, AUTOMATED Collected: 04/19/2017 Status: F Source: [place] 5:33 PM [facility] REPOSITORY TYPE CODE TESTS RESULT OUT OF RANGE REFERENCE UNITS LAB L100.1000 4.4-11.0 K/mm3 Normal WBC 10.4 LAB L100.1200 4.2-5.4 M/mm3 Normal RBC 4.70 LAB L100.1300 12.0-15.0 g/dl Normal HGB 12.0 LAB L100.1400 37-47 % Normal HCT 38.6 LAB L100.1500 81-99 fL Normal MCV 82.1 LAB L100.1600 27.0-32.0 pg Low MCH 25.5 LAB L100.1700 32-36 g/gl Low MCHC 31.1 LAB L100.1810 11.6-14.6 % High RDW CV 14.9 LAB L100.1820 35.1-43.9 fl High RDW SD 44.6 LAB L100.1900 150-450 K/mm3 Normal PLT 281 LAB L100.2000 6.2-12.0 fl Normal MPV 10.2 LAB L100.2100 47-70 % Normal NEUT% 56.6 LAB L100.2200 19-41 % Normal LY% 33.4 LAB L100.2300 0-10 % Normal MONO% 7.7 LAB L100.2400 0-5 % Normal EO% 1.8 LAB L100.2500 0-1 % Normal BASO% 0.3 LAB L100.2550 0.0-0.9 % Normal IM GRAN % 0.200 Result Comment: IG% - Immature Granulocytes (promyelocytes, myelocytes and metamyelocytes) > 1% indicates that a LEFT SHIFT is Present. LAB L100.2620 2.0-7.7 X10 3/uL Normal Absolute Neut 5.9 LAB L100.2720 0.83-4.51 X10 3/ul Normal Absolute Lymph 3.48 Performed By: #### L100.0100 #### [facility] [address] [place], [place], [address] BASIC METABOLIC Collected: 04/19/2017 Status: F Source: [place] PROFILE (BMP) 5:33 PM [facility] REPOSITORY Order Comment: 'TROP' Serial specimen #1, #2, #3, or #4: 1 TYPE CODE TESTS RESULT OUT OF RANGE REFERENCE UNITS LAB L501.0100 74-106 mg/dL High GLU 173 Result Comment: Fasting Glucose result greater than or equal to 126 mg/dL suggests DIABETES MELLITUS per A.D.A. criteria. Please note revised GLUCOSE reference range effective 2017. LAB L501.1000 7-18 mg/dL High BUN 29 LAB L501.1100 0.55-1.02 mg/dL High CREAT,SERUM 1.16 Result Comment: The validity of the calculated GFR AND GFRAA in patients over 70 years has not been determined. Clinical correlation is essential. LAB L501.1110 >60 mL/min Low EST GFR 48 Result Comment: Non- GFR Calc LAB L501.1115 >60 mL/min Low EST GFR - AA 58 Result Comment: GFR Calc LAB L501.1255 ml/min Normal Estimated CRCL 37.13 LAB L501.1300 10-20 RATIO High BUN/CRE 25.0 LAB L501.2200 8.5-10 mg/dL Normal .1 CA 8.7 LAB L501.5300 136-14 mmol/L Normal 5 NA 137 LAB L501.5600 3.5-5. mmol/L Normal 1 K 4.7 LAB L501.5900 98-107 mmol/L Normal CL 102 LAB L501.6100 21.0-3 mmol/L Normal 2.0 CO2 25.0 LAB L501.6200 5-15 Normal GAP 10 Performed By: #### L500.2500, L501.4010 #### [facility] [address] [facility] [place], [address] TROPONIN-I Collected: 04/19/2017 Status: F Source: [place] 5:33 PM [facility] REPOSITORY Order Comment: 'TROP' Serial specimen #1, #2, #3, or #4: 1 TYPE CODE TESTS RESULT OUT OF RANGE REFERENCE UNITS LAB L501.4010 <0.06 ng/mL High 0.14 TROPONIN-I Result Comment: TROPONIN-I EXPECTED VALUES <0.05 NEGATIVE 0.06 - 0.[address] > OR = 0.[address] Performed By: #### L500.2500, L501.4010 #### [facility] [address] [facility] [place], [address] CHEST 1 VIEW Observed: 04/19/2017 Status: F Source: [place] (PORTABLE) 5:29 PM [facility] REPOSITORY [facility] Imaging Services [address] [place] [address] Chest 1 View (Portable) MR#: [id number] Acct: [id number] Name: COMFORT HU Rep #: [id number] : 1940 F 76 From: Kwasi Ambriz MD PCP: Nia Uriostegui DO Status: PRE ER Study: Chest 1 View (Portable) Date of Exam: 04/19/17 Exam# [id number] Ordering Dr: Deisi Ryan MD STUDY: X-RAY CHEST REASON FOR EXAM: Female, 76 years old. Tachycardia TECHNIQUE: Frontal view of the chest COMPARISON: X-ray dated 11/11/2016 FINDINGS: The lungs are clear. There are no pleural effusions. There is no pneumothorax. The heart is normal in size. Again noted is tortuosity of the aorta. The visualized osseous structures are within normal limits. The patient is status post sternotomy. RAD/Chest 1 View (Portable) IMPRESSION: No acute thoracic pathology. Electronically Signed: Kwasi Ambriz, at 17:53 EST Tel , Service support , CC: Deisi Ryan MD; Nia Uriostegui DO Contract Technical Writer: Signed CARDIOLOGY VISIT Observed: 03/14/2017 Status: F Source: [place] REPORT 3:27 PM [facility] REPOSITORY [facility] [address] [place] [address] OFFICE VISIT Date of Service: 03/14/17 MR#: [id number] Acct: [id number] Name: FRITZCOMFORT Sherman Rep #: [id number] : 1940 Provider: JOSSELNY Lombardo Age/Sex: 76/F Location: [facility] Status: Signed HPI 3 M FU: Details: COMFORT HU, is a 76 F who presents to the office today for a cardiovascular outpatient follow-up. Patient is a history of coronary artery disease status post bypass surgery in 2004 with VILLAGRAN to the LAD and second diagonal vessel, paroxysmal atrial fibrillation, cardiomyopathy, hypertension, and hyperlipidemia. Pt. denies chest, arm, jaw, or neck discomfort. Her exercise tolerance is stable via bicycling though limiting d/t knee pain. Pt. denies symptoms of CHF, palpitations, lightheadedness, dizziness, near syncope, or syncopal episodes. Pt. denies edema or claudication issues. Pt. denies orthopnea, PND, fever, chills, blood in urine, blood in stool, myalgia, or unexplainable fatigue. Echocardiogram from February 2017 showed an ejection fraction of 35% and mild mitral valve insufficiency. Heart catheterization from November 18, 2016 showed left main with 30% stenosis, totally occluded mid LAD, first diagonal with 75% stenosis, circumflex with less than 30% stenosis, OM1 with 75% stenosis and RCA with less than 30% stenosis. Patient returned to [employer] approximately one week later and showed a patent VILLAGRAN to LAD. Dual antiplatelet therapy was not recommended due to previous history of brain surgery for meningioma. Medical management was recommended and patients aspirin was increased. Intake Vital Signs03/14/17 Height 5 ft 5 in 03/14/17 Weight: 194 lb 03/14/17 Body Mass Index (BMI) 32.3 03/14/17 Blood Pressure 150/90 03/14/17 Blood Pressure Location Lt brachial Intake Visit Reasons: 3 M FU Cylinder Grinder Required: No Accompanied by: None Is patient [...] mg PO DAILY 11/11/16 [History Confirmed 02/28/17] Methscopolamine Casanova 5 mg PO BID 11/11/16 [History Confirmed 02/28/17] Montelukast Sodium [Singulair] 10 mg PO DAILY 11/11/16 [History Confirmed 02/28/17] Nitroglycerin [Nitrostat] 0.4 mg SL DAILY PRN 11/11/16 [History Confirmed 02/28/17] Valsartan [Diovan] 320 mg PO DAILY 11/11/16 [History Confirmed 02/28/17] Albuterol IH (ProAir) [Proair Hfa (SP)Vent Pts] 2 puff INHALATION Q4H PRN PRN 11/15/16 [History Confirmed 11/22/16] magnesium oxide 400 mg tablet 400 mg PO DAILY #30 tab 02/12/17 [Rx Confirmed 02/28/17] potassium chloride ER 20 mEq tablet,extended release(part/cryst) 20 meq PO QDAY #30 tab 02/12/17 [Rx Confirmed 02/28/17] furosemide 40 mg tablet 40 mg PO BID #60 tab 02/19/17 [Rx Confirmed 02/28/17] metoprolol tartrate 100 mg tablet 100 mg PO BID 02/28/17 [History Confirmed 02/28/17] diltiazem CD 120 mg capsule,extended release 24 hr 120 mg PO QDAY 03/14/17 [History Confirmed 03/14/17] gabapentin 100 mg capsule 100 mg PO BIDCM cap 03/14/17 [History Confirmed 03/14/17] metformin 500 mg tablet 1,000 mg PO BID tab 03/14/17 [History Confirmed 03/14/17] Ejection fraction %: 35 to 39 PFSH Medical History Other secondary pulmonary hypertension (Chronic) Cardiomyopathy in diseases classified elsewhere (Chronic) Other cerebral infarction (Chronic) Paroxysmal atrial fibrillation (Chronic) Atrial enlargement, 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) HTN [...] or fatigue ENT ENT: Negative for dizziness Cardio Chest Pain: No Palpitations: Positive for No Edema: None Muscle aches with walking: None Resp Respiratory: Negative for SOB with activity, SOB at rest, SOB orthopnea\SOB lying down or paroxysmal nocturnal dyspnea GI GI: Negative nausea, black,tarry stools, bright, red blood in stools or vomiting blood/hematemesis : Negative for hematuria or frequent nighttime urination/ nocturia Musc Musc: Negative for muscle aches/ myalgia Neuro Neuro: Negative for lightheadedness, Negative for near syncope, Negative for syncope, Negative for orthostatic symptoms, Negative for weakness, Negative for dizziness Endo Endo: Negative for fatigue Cardiology Exam Const Appearance: cooperative, healthy appearing, comfortable and no acute distress Orientation: alert, awake and oriented x3 Head Head: normal to inspection Mouth: oral mucosae normal Neck Neck: no JVD and normal visual inspection Carotids: normal carotid upstroke Chest Chest inspection: normal inspection of the chest and normal respiratory effort Auscultation: Bilateral: Clear to Auscultation Cardio Rate: regular rate Rhythm: regular rhythm Heart sounds: murmur (LLSB systolic murmur); negative rub or gallop Murmur: Grade 2/6 GI GI: normal to inspection Neuro General: alert, awake, oriented x3 and CN's II-XI intact bilaterally Skin Skin: no rashes or lesions noted Extremities Pulses: Normal: Right Posterior Tibial Pulse, Left Posterior Tibial Pulse, Right Radial Pulse, Left Radial Pulse Lower Extremity Edema: None: Bilateral Psych Psychological: normal affect Assessment AND Plan 1. Essential hypertension I10 Plan - SEEMA Spence Patient's blood pressures on the higher end today. [...] recommendations will be made. 2. Cardiomyopathy in diseases classified elsewhere I43 Plan - SEEMA Spence Patient's most recent echocardiogram showed an improved ejection fraction from 25% to 35%. Patient's activity level has been stable. Hopefully her blood pressure and heart rate remain stable, which allows for continual up titration of medication to help for this. We will continue to monitor this while we wait for updated BP readings. 3. Atherosclerosis of [place] coronary artery of [place] heart without angina pectoris I25.10 08/06/2004 CABG x2 VILLAGRAN side to side to second Diagonal and end to side to Anterior Descending artery in Sequential fashion. [facility]: 08/01/2004; 10/15/2011 Plan - SEEMA Spence Patient's most recent heart catheterization is noted above. Patient denies any chest pain, arm pain, jaw pain, neck pain, shortness of breath, or fatigue suggestive of angina at this time. We will continue to monitor this. We will not make any medication regimen changes and will continue risk factor modification. 4. Paroxysmal atrial fibrillation I48.0 SEEMA Pan Patient appears to be maintaining a regular rhythm. She is not on oral anticoagulation given her history of brain surgery and meningioma. Her heart rate is well-controlled today in office. We will continue current medications which include rate controlling and aspirin. 5. Mixed hyperlipidemia E78.2 Plan - SEEMA Spence Patient is not on any cholesterol lowering medication. She states this is being monitored by primary care physician and is scheduled for repeat evaluation in the near future. Plan Detail Other Medications New: Discontinued: Additional Comments - SEEMA Spence Discussed the above patient with Dr. Winchester, he agrees with the plan of care. Thank you for allowing us to participate in the patients plan of care, if you have any questions please do not hesitate to call. This note was generated using a voice recognition system and there may be incorrect words, spelling or punctuation that were not noted when reviewing the office note prior to saving. Follow Up 6 Months (BLOWER BLAST FURNACE) Coding Level of Care Code Off vis,est,level 3 Diagnoses Essential hypertension I10 Hypertension type: essential hypertension Cardiomyopathy in diseases classified elsewhere I43 Atherosclerosis of [place] coronary artery of [place] heart without angina pectoris I25.10 [place] vs. transplanted heart: [place] heart Paroxysmal atrial fibrillation I48.0 Mixed hyperlipidemia E78.2 Hyperlipidemia type: mixed hyperlipidemia Coding Level of Care Code Off vis,est,level 3 Diagnoses Essential hypertension I10 Hypertension type: essential hypertension Cardiomyopathy in diseases classified elsewhere I43 Atherosclerosis of [place] coronary artery of [place] heart without angina pectoris I25.10 [place] vs. transplanted heart: [place] heart Paroxysmal atrial fibrillation I48.0 Mixed hyperlipidemia E78.2 Hyperlipidemia type: mixed hyperlipidemia 03/14/17 1154 <Electronically signed by Lui FREGOSOC> Date Lui FREGOSOC 03/14/17 1527<Electronically signed by Jonel Winchester MD> Cosigner Signature: Date (if applicable) Jonel Winchester MD CC: Nia Bo DO ECHO, COMPLETE W/ Observed: 03/10/2017 Status: F Source: [employer] CONTRAST 2:13 PM [facility] REPOSITORY [facility] Cardiovascular Services [address] [place] [address] Echo Complete W/ Contrast 03/10/17 1008 MR#: [id number] Acct: [id number] Name: COMFORT HU Rep #: [id number] : 1940 76 From: Jonel Winchester MD Attending Dr: Jonel Winchester MD Status: REG CLI Ordering Dr: Jonel Winchester MD Date: 03/10/17 Location: [facility] Sex: F C Admitted: Reason For Study: Cardiomyopathy Procedure This was a 2D [...] shunt. Mitral Valve There is mild to moderate mitral annular calcification. Mild (1+) eccentric mitral valve insufficiency. Tricuspid Valve Normal tricuspid valve. Mild (1+) tricuspid valve insufficiency. Aortic Valve Trisinus/trileaflet aortic valve. Pulmonic Valve The pulmonic valve is not well visualized. Great Vessels Normal aortic root. The pulmonary artery is normal size. Normal inferior vena cava. Pericardium/Pleural No pericardial effusion. Medication 22 gauge I.V. with prn adaptor inserted into right arm. Diluted definity 2ml given slow IV push to enhance endocardial definition. MMode/2D Measurements AND Calculations LVIDd: 4.6 cm IVSd: 1.2 cm Ao root diam: 3.3 cm LVIDs: 4.0 cm LVPWd: 1.5 cm LA dimension: 4.1 cm RVDd: 3.6 cm FS: 13.7 % LAV(MOD-bp): 84.4 ml LAV(MOD-bp) Indexed: 43.6 ml/m2 LA A4 area: 23.5 cm2 RA A4 area: 16.2 cm2 LAV(MOD-sp2): 89.6 ml LAV(MOD-sp4): 74.9 ml Time Measurements MV dec time: 0.25 sec Doppler Measurements AND Calculations MV E max angie: 68.5 cm/sec Lat [...] max P.8 mmHg MV V2 mean: 64.8 cm/sec MV dec slope: 226.2 cm/sec2 Ao V2 [...] ejection fraction is 35 %. There is mild to moderate mitral annular calcification. Mild (1+) eccentric mitral valve insufficiency. Compared to the previous there is mild improvement noted Ordering Physician: Jonel Winchester Referring Physician: Jonel Winchester Performed By: Rolly Valdez RCS 03/10/17 1412 Date Jonel Winchester MD CC: Jonel Winchester MD; Nia Uriostegui DO Date Dictated: 03/10/17 1008 Date Transcribed: 03/10/171411 Contract Technical Writer: Signed ALLERGIES ALLERGIES DATE TYPE / CODE NAME / CODE REACTION SEVERITY SOURCE 01/08/2018 Drug No Known Unknown [facility] Allergy/416 Allergies/A60083 Hospital 565999(SNOM 0388(RXNORM) Repository ED CT) NG/00304517 NO KNOWN [facility] 6(SNOMED ALLERGIES [facility]) Repository ENCOUNTERS ENCOUNTERS ADMIT/DISCHARGE ACCOUNT NUMBER ADMITTING ENCOUNTER LOCATION SOURCE CLASS 01/08/2018/01/09/20 [id number] Ambulatory BMSBuilding: [place] 18 BMS.[facility] Repository 01/06/2018 [id number] Ambulatory [facility] 01/05/2018 [id number] Ambulatory Building:[facility] Repository 01/05/2018 [id number] Ambulatory Building:[facility] Repository 12/30/2017 [id number] Ambulatory Building:[facility] Practices Repository 12/19/2017/12/20/19 [id number] Ambulatory BMSBuilding: [place] 18 BMS.[facility] Repository 12/15/2017 [id number] Ambulatory BMSBuilding: [place] BMS..[facility] Repository 12/15/2017 [id number] Ambulatory [facility] ding:[facility] Repository 12/12/2017 [id number] Ambulatory BMSBuilding: [place] [facility] Repository 12/12/2017 [id number] Ambulatory [facility] ding:[facility] Repository 12/12/2017 [id number] Ambulatory BMSBuilding: [place] BMS.[facility] Repository 12/12/2017/12/13/19 [id number] Ambulatory BMSBuilding: [place] 18 BMS.[facility] Repository 12/11/2017 [id number] Ambulatory BMSBuilding: [place] BMS.CF.[facility] Repository 12/11/2017 [id number] Ambulatory [facility] ding:[facility] Repository 12/11/2017/12/12/19 [id number] Ambulatory BMSBuilding: [place] 18 BMS.[facility] Repository 12/04/2017/12/06/19 [id number] EVENS BREWSTER Ambulatory Building:[address] oom: [place] [address]Bed: [facility] Repository 12/03/2017 [id number] Ambulatory Building:[facility] Repository 12/03/2017 [id number] Ambulatory Building:[facility] Repository 12/03/2017 [id number] Ambulatory Building[facility] Repository 12/03/2017 [id number] Ambulatory Building:[facility] Repository 2017 [id number] Ambulatory [facility] MEDICAL Repository CENTERBuildi ng:AGCARDPHR A 11/10/2017 [id number] Ambulatory Building:[facility] Repository 11/03/2017/11/04/19 [id number] Ambulatory [address] ding:[facility] Repository 11/03/2017 [id number] Ambulatory BMSBuilding: [place] BMS.CF.[facility] Repository 10/08/2017/10/09/19 [id number] Ambulatory BMSBuilding: [place] 18 [facility]MS.[facility] Repository 10/05/2017/10/06/19 [id number] Emergency [address] ding:ED Repository 10/04/2017 [id number] Ambulatory BMSBuilding: [place] BMS.[facility] Repository 10/02/2017 [id number] Ambulatory [facility] ding:[facility] Repository 10/02/2017 [id number] Ambulatory BMSBuilding: [place] [facility] Repository 10/02/2017 [id number] Ambulatory Building:[facility] Repository 09/29/2017/09/30/19 [id number] Emergency [address] ding:ED Repository 09/25/2017 [id number] Ambulatory BMSBuilding: [place] BMS.[facility] Repository 09/25/2017/09/26/19 [id number] Ambulatory BMSBuilding: [place] 18 [facility]MS.[facility] Repository 08/24/2017/08/25/19 [id number] Emergency [address] ding:ED Repository 06/02/2017/06/03/19 [id number] Ambulatory BMSBuilding: [place] 18 [facility]MS.[facility] Repository 05/26/2017/05/27/19 [id number] Ambulatory BMSBuilding: [place] 18 [facility] Repository 05/16/2017/05/17/19 [id number] Ambulatory BMSBuilding: [place] 18 [facility] Repository 05/14/2017/05/15/19 [id number] Ambulatory BMSBuilding: [place] 18 [facility] Repository 05/14/2017 [id number] Ambulatory BMSBuilding: [place] BMS.[facility] Repository 05/09/2017/05/10/19 [id number] Ambulatory BMSBuilding: [place] 18 BMS.[facility] Repository 05/08/2017 [id number] Ambulatory BMSBuilding: [place] BMS.[facility] Repository 05/04/2017/05/05/19 [id number] Emergency [address] ding:ED Repository 04/20/2017/04/24/19 [id number] Truong Cordova Inpatient [place] Ale[place] 18 [facility] ding:[facility] Repository : PKX403Mlr: 1 04/20/2017 [id number] Truong Cordova Ambulatory BMSBuilding: [place] BMS.[facility] Repository 04/20/2017 [id number] Truong Cordova Ambulatory BMSBuilding: [place] BMS.CF.[facility] Repository 04/20/2017 [id number] Tasha, Truong Ambulatory BMSBuilding: [place] BMS.CF.[facility] Repository 04/20/2017 [id number] Tasha, Truong Ambulatory BMSBuilding: [place] BMS.CF.[facility] Repository 04/20/2017 [id number] Tasha, Truong Ambulatory BMSBuilding: [place] BMS.[facility] Repository 04/20/2017 [id number] Tasha, Truong Ambulatory BMSBuilding: [place] BMS.[facility] Repository 04/20/2017 [id number] Tasha, Truong Ambulatory BMSBuilding: [place] BMS.[facility] Repository 04/19/2017 [id number] Tasha, Truong Ambulatory BMSBuilding: [place] BMS.[facility] Repository 04/19/2017 [id number] Tasha, Truong Ambulatory BMSBuilding: [place] BMS.CF.[facility] Repository 03/14/2017/03/14/19 [id number] Ambulatory BMSBuilding: [place] 18 BMS.[facility] Repository 03/10/2017 [id number] Ambulatory [facility] ding[facility] Repository 03/10/2017 [id number] Ambulatory BMSBuilding: [place] [facility] Repository PAYERS PAYERS ENCOUNTER GUARANTOR PAYER SUBSCRIBER SOURCE 01/08/2018 COMFORT A [id number] Primary COMFORT A BLACKDOB: [place] Insurance:MEDICARE [id number] Community [id number]: (330) PART A [facility] [phone] () Number: Repository [id number] Date:2017-10-08 01/08/2018 Secondary COMFORT A BLACKDOB: [place] Insurance:RURAL [id number] Number: Repository [id number] Date:6002-91-67HJ [address] [place] [address]KW: 01/08/2018 Tertiary MANNY W [place] Insurance:[facility] BLACKDOB: Community Number: [id number] Hospital [id number] Repository Date:6134-15-83LK [address]RSYDNJLGJFD, [place] [address]CF: 01/08/2018 Tertiary NOT GIVENUNK [place] Insurance:SELF PAY [facility] Number: Effective Repository Date:2017-12-08 01/06/2018 COMFORT [id number] Primary COMFORT A BLACKDOB: [place] [address] Insurance[place]MEDICARE [id number] Community [id number]: (330) PART A [place] [phone] () Number: Repository [id number] Date:2018-01-06 01/06/2018 Secondary COMFORT A BLACKDOB: [place] Insurance:[facility] [id number] [facility] PLANPolicy Number: Repository [id number] Date:9349-90-56UG [address] [address]YP: 01/06/2018 Tertiary MANNY W [place] [facility] BLACKDOB: Community Number: [id number] Hospital [id number] Repository Date:2787-15-18XP [address]UUTZGW[address]CCY, [place] [address]KB: 01/06/2018 Tertiary NOT GIVENUNK [place] Insurance:SELF PAY [facility] Number: Effective Repository Date:2018-01-06 01/05/2018 COMFORT Sherman BLACKDOB: Primary COMFORT A BLACKDOB: [facility] [id number] Insurance:MEDICARE A [id number] [facility] Number: 9 [facility] [address], [place] [id number] [address] Center [address]Ijf: (330) Date:4142-11-45Evuu [address]Fgs: (369) Repository [phone] () Name:[place] [id number] () 01/05/2018 Secondary COMFORT A BLACKDOB: [facility] Insurance:AETNAPolicy [id number] [place] Number: 9 [facility] [id number] [address] Center Date:9904-01-34Bfea 90[address]Gpx: (330) Repository Name:MANAGED CARE [phone] () 01/05/2018 Tertiary COMFORT A BLACKDOB: [facility] Insurance:CIGNAPolicy [id number] [place] Number: 9 [facility] [id number] [address] Center Date:6284-86-44Ltnn [address]Vyc: (330) Repository Name:MANAGED CARE [phone] () 01/05/2018 COMFORT A BLACKDOB: Primary COMFORT A BLACKDOB: [facility] Insurance:MEDICARE A [id number] University [facility] [address] AND BPolicy Number: 9 [facility] [address], [place] [id number] [address], [place] Center [address]Bkp: (330) Date:6045-76-56Bccq [address]Cqj: (330) Repository 567360 () Name:CARE [facility]360 () 01/05/2018 Secondary COMFORT A BLACKDOB: [facility] Insurance:AETNAPolicy [id number] University Number: 9 [facility] [id number] [address] Center Date:5819-92-38Gxzo 015[address]Rpd: (330) Repository Name:MANAGED CARE [phone] () 01/05/2018 Tertiary COMFORT A BLACKDOB: [facility] Insurance:CIGNAPolicy [id number] University Number: 9 [facility] [id number] [address] Center Date:2310-71-15Sndb 35[address]Yfa: (330) Repository Name:MANAGED CARE [phone] () 12/30/2017 Comfort A BlackDOB: Primary Comfort A BlackDOB: [facility] Insurance:MedicarePol [id number] Repository [facility] icy Number: [id number] XZ84Jwkveynpx [address], [place] [address]Jtr: (330) Date:4667-66-20Nitu [address]350[address]Rtt: () Name:HEAD COOK Box [facility]520 () [address]Dore[place]xsf, [place] [address]EM: 12/30/2017 Secondary Comfort A BlackDOB: [facility] Insurance:Rural [id number] Repository [address] Number: [place] [id number] [address]Qrc: (050) Date:7763-32-63Gvzy [phone] () Name:[facility] [address] [place] [address]CY: 12/19/2017 COMFORT CONNOR29 Primary COMFORT A BLACKDOB: [place] [address]ARE [id number] Community [id number]: (820) PART A [place] [phone] () Number: Repository [id number] Date:2017-12-15 12/19/2017 Secondary COMFORT A BLACKDOB: [place] Insurance:[facility] [id number] Number: Repository [id number] Date:3607-34-81CD [address] [place] [address]QT: 12/19/2017 Tertiary MANNY W [place] Insurance:[facility] BLACKDOB: Community Number: [id number] Hospital [id number] Repository Date:7676-67-63CR [address]UQPLKFOZEBW, [place] [address]LY: 12/19/2017 Tertiary NOT GIVENUNK [place] Insurance:SELF PAY [facility] Number: Effective Repository Date:2017-12-15 12/15/2017 COMFORT A [id number] Primary COMFORT A BLACKDOB: [place] [address] [id number] Community [phone]: (169) PART A [facility] [phone] () Number: Repository [id number] Date:2017-12-12 12/15/2017 Secondary MANNY W [place] Insurance:CIGNAPolicy BLACKDOB: Community Number: [id number] Hospital [id number] Repository Date:9046-15-22CE [facility] 374296DCLHRUPCSZF, [place] [address]WL: 12/15/2017 Tertiary COMFORT A BLACKDOB: [place] Insurance:RURAL [id number] [facility] PLANPolicy Number: Repository [id number] Date:5640-71-19NN [address] [address]AD: 12/15/2017 Tertiary NOT GIVENUNK [place] Insurance:SELF PAY [facility] Number: Effective Repository Date:2017-12-15 12/15/2017 COMFORT [id number] Primary COMFORT A BLACKDOB: [place] [address] [id number] Community [address]Che: (330) PART A [facility] [phone] () Number: Repository [id number] Date:2017-12-12 12/15/2017 Secondary COMFORT A BLACKDOB: [place] Insurance:[facility] [id number] [facility] PLANPolicy Number: Repository [id number] Date:8771-56-62XY [facility] [address] [address]MK: 12/15/2017 Tertiary MANNY W [place] Insurance:CIGNAPolicy BLACKDOB: Community Number: [id number] Hospital [id number] Repository Date:1422-30-39KS [facility] [place]97[place], [place] [address]TX: 12/15/2017 Tertiary NOT GIVENUNK [place] Insurance:SELF PAY [facility] Number: Effective Repository Date:2017-12-12 12/12/2017 COMFORT [id number] Primary COMFORT A BLACKDOB: [place] [address] [id number] [facility] [address]Qgs: (330) PART A [facility] [phone] () Number: Repository [id number] Date:2017-12-12 12/12/2017 Secondary COMFORT A BLACKDOB: [place] Insurance:RURAL [id number] [facility] PLANPolicy Number: Repository [id number] Date:7309-94-85ZF [facility] [address] [address]VZ: 12/12/2017 Tertiary MANNY W [place] Insurance:CIGNAPolicy BLACKDOB: Community Number: [id number] Hospital [id number] Repository Date:2317-18-38FR [facility] [address]98443VSYPTQWGXSW, [place] [address]GC: 12/12/2017 Tertiary NOT GIVENUNK [place] Insurance:SELF PAY [facility] Number: Effective Repository Date:2017-12-12 12/12/2017 COMFORT [id number] Primary COMFORT A BLACKDOB: [place] [address] [id number] [place] [id number]: (330) PART A [place] [phone] () Number: Repository [id number] Date:2017-12-12 12/12/2017 Secondary COMFORT A BLACKDOB: [place] Insurance:RURAL [id number] [facility] PLANPolicy Number: Repository [id number] Date:4905-76-51IJ [facility] [address] [address]KH: 12/12/2017 Tertiary MANNY W [place] Insurance:CIGNAPolicy BLACKDOB: Community Number: [id number] Hospital [id number] Repository Date:6636-84-51QB [facility] 325079JOMUGTLJPIK, [place] [address]PU: 12/12/2017 Tertiary NOT GIVENUNK [place] Insurance:SELF PAY [facility] Hospital Number: Effective Repository Date:2017-12-12 12/12/2017 COMFORT [id number] Primary COMFORT A BLACKDOB: [place] [address] [id number] [facility] [address]Mtv: (330) PART A [facility] [phone] () Number: Repository [id number] Date:2017-12-12 12/12/2017 Secondary COMFORT A BLACKDOB: [place] Insurance:RURAL [id number] [facility] PLANPolicy Number: Repository [id number] Date:4656-84-30JH [facility] [address] [address]VX: 12/12/2017 Tertiary MANNY W [place] Insurance:CIGNAPolicy BLACKDOB: Community Number: [id number] Hospital [id number] Repository Date:9521-57-10GL [address]CPAXGCTIJFA, [place] [address]CV: 12/12/2017 Tertiary NOT GIVENUNK [place] Insurance:SELF PAY [facility] Hospital Number: Effective Repository Date:2017-12-12 12/12/2017 COMFORT [id number] Primary COMFORT A BLACKDOB: [place] [address]ARE [id number] Community [address]Pao: (330) PART A [place] [phone] () Number: Repository [id number] Date:2017-12-12 12/12/2017 Secondary COMFORT A BLACKDOB: [place] Insurance:RURAL [id number] [facility] PLANPolicy Number: Repository [id number] Date:3248-44-93LP [facility] [address] [address]HH: 12/12/2017 Tertiary MANNY W [place] Insurance:CIGNAPolicy BLACKDOB: Community Number: [id number] Hospital [id number] Repository Date:3800-65-42UQ [address]PZVOGZSJUWE, [place] [address]QH: 12/12/2017 Tertiary NOT GIVENUNK [place] Insurance:SELF PAY [facility] Hospital Number: Effective Repository Date:2017-12-12 12/11/2017 COMFORT [id number] Primary COMFORT A BLACKDOB: [place] [address]ARE [id number] Community [id number]: (897) PART A [facility] [phone] () Number: Repository [id number] Date:2017-12-11 12/11/2017 Secondary COMFORT A BLACKDOB: [place] Insurance:RURAL [id number] CenterP[facility] Number: Repository [id number] Date:7942-88-33FR [facility] [address] [address]JA: 12/11/2017 Tertiary MANNY W [place] Insurance:CIGNAPolicy BLACKDOB: Community Number: [id number] Hospital [id number] Repository Date:7128-12-22AV [address]TRAE[address]K [place] [address]JS: 12/11/2017 Tertiary NOT GIVENUNK [place] Insurance:SELF PAY [facility] Number: Effective Repository Date:2017-12-11 12/11/2017 COMFORT [id number] Primary COMFORT A BLACKDOB: [place] [address] Insurance:MEDICARE [id number] Community [address]Pnq: (330) PART A [place] [id number] () Number: Repository [id number] Date:2017-12-11 12/11/2017 Secondary COMFORT A BLACKDOB: [place] Insurance:RURAL [id number]: Repository [id number] Date:8624-56-83JN [facility] [address] [address]RS: 12/11/2017 Tertiary MANNY W [place] Insurance:CIGNAPolicy BLACKDOB: Community Number: [id number] Hospital [id number] Repository Date:5101-09-42[address]ABCNTRTQNJS, [place] [address]TR: 12/11/2017 Tertiary NOT GIVENUNK [place] Insurance:SELF PAY [facility] Number: Effective Repository Date:2017-12-11 12/11/2017 COMFORT [id number] Primary COMFORT A BLACKDOB: [place] [address] Insurance[place]ICARE [id number] Community [address]Sei: (330) PART A [facility] [phone] () Number: Repository [id number] Date:2017-12-11 12/11/2017 Secondary COMFORT A BLACKDOB: [place] Insurance:RURAL [id number] [facility] PLANPolicy Number: Repository [id number] Date:1933-54-74IN [address] [address]VH: 12/11/2017 Tertiary MANNY W [place] Insurance[facility] BLACKDOB: [facility] Number: [id number] Hospital [id number] Repository Date:2117-58-09FS [address]WQRWZSFFGUU, [place] [address]ZF: 12/11/2017 Tertiary NOT GIVENUNK [place] Insurance:SELF PAY [facility] Number: Effective Repository Date:2017-12-11 12/04/2017 COMFORT A BLACKDOB: Primary COMFORT A BLACKDOB: [facility] Insurance:MEDICARE A [id number] [facility] [address] AND BPolicy Number: 9 [facility] [address], [place] [id number] [address], [place] Center [address]Met: (330) Date:8896-26-52Bzpw [address]88[address]Blr: (330) Repository [phone] () Name:CARE [phone] () 12/04/2017 Secondary COMFORT A BLACKDOB: [facility] Insurance:AETNAPolicy [id number] Nemo Number: 9 [facility] [id number] [address] Center Date:9119-84-69Jrcw 557[address]Uzi: (330) Repository Name:MANAGED CARE [phone] () 12/04/2017 Tertiary COMFORT A BLACKDOB: [facility] Insurance:CIGNAPolicy [id number] [place] Number: 9 [facility] [id number] [address] Center Date:1787-90-21Snvk 34[address]Tkb: (330) Repository Name:MANAGED CARE [phone] () 12/03/2017 COMFORT A BLACKDOB: Primary COMFORT A BLACKDOB: [facility] Insurance:MEDICARE A [id number] [facility] [address] AND BPolicy Number: 9 [facility] [address], [place] [id number] [address], [place] Center [address]Hop: (330) Date:7542-60-80Zszt [address]44[address]Abd: (330) Repository [phone] () Name:CARE [address] [place] [address] () 12/03/2017 Secondary COMFORT A BLACKDOB: [facility] Insurance:AETNAPolicy [id number] [place] Number: 9 [facility] [id number] [address] Center Date:1233-61-35Inde [address]Okc: (330) Repository Name:MANAGED CARE [address] [place] [address] () 12/03/2017 Tertiary COMFORT A BLACKDOB: [facility] Insurance:CIGNAPolicy [id number] [place] Number: 9 [facility] [id number] [address] Center Date:5708-69-83Nxxu 564[address]Vcu: (330) Repository Name:MANAGED CARE [address] [place] [address] () 12/03/2017 COMFORT A BLACKDOB: Primary COMFORT A BLACKDOB: [facility] Insurance:MEDICARE A [id number] [facility] [address] AND BPolicy Number: 9 [facility] [address], [place] [id number] [address], [place] Center [address]Sjv: (330) Date:2104-17-19Ftjx 13443Ynv: (330) Repository [phone] () Name:CARE [facility]-360 () 12/03/2017 Secondary COMFORT A BLACKDOB: [facility] Insurance:AETNAPolicy [id number] [place] Number: 9 [facility] [id number] [address] Center Date:0802-74-44Zxjj 11428Tqg: (330) Repository Name:MANAGED CARE [facility]360 () 12/03/2017 Tertiary COMFORT A BLACKDOB: [facility] Insurance:CIGNAPolicy [id number] [place] Number: 9 [facility] [id number] [address] Center Date:8499-61-53Awtn [address]Ziq: (330) Repository Name:MANAGED CARE [facility]-3607 () 12/03/2017 COMFORT A BLACKDOB: Primary COMFORT A BLACKDOB: [facility] Insurance:MEDICARE A [id number] [facility] [address] AND BPolicy Number: 9 [facility] [address], [place] [id number] [address], [place] Center [address]Hev: (330) Date:3919-30-56Otje [address]Pyk: (330) Repository [phone] () Name:CARE [facility] () 12/03/2017 Secondary COMFORT A BLACKDOB: [facility] Insurance:AETNAPolicy [id number] [place] Number: 9 [facility] [id number] [address] Center Date:5606-60-15Kdeh 492[address]Lig: (330) Repository Name:MANAGED CARE [phone] () 12/03/2017 Tertiary COMFORT A BLACKDOB: [facility] Insurance:CIGNAPolicy [id number] [place] Number: 9 [facility] [id number] [address], [place] Center Date:3914-98-54Hlng 766[address]Lit: (330) Repository Name:MANAGED CARE [phone] () 12/03/2017 COMFORT A BLACKDOB: Primary COMFORT A BLACKDOB: [facility] Insurance:MEDICARE A [id number] [facility] [address] AND BPolicy Number: 9 [facility] [address], [place] [id number] [address], [place] Center [address]Mnb: (330) Date:0299-76-61Pcex 608[address]Euo: (330) Repository [phone] () Name:CARE [phone] () 12/03/2017 Secondary COMFORT A BLACKDOB: [facility] Insurance:AETNAPolicy [id number] [place] Number: 9 [facility] [id number] [address] Center Date:2527-19-70Vubx 47[address]Xmh: (330) Repository Name:MANAGED CARE [phone] () 12/03/2017 Tertiary COMFORT A BLACKDOB: [facility] Insurance:CIGNAPolicy [id number] [place] Number: 9 [facility] [id number] [address] Center Date:9612-23-41Tqlu 314[address]Rrc: (330) Repository Name:[facility] CARE [phone] () 2017 COMFORT A BLACKDOB: Primary COMFORT A BLACKDOB: [facility] Insurance:MEDICARE A [id number] [address] AND BPolicy Number: Repository [address]Aia: (330) [id number] [phone] () Date: 2017 Secondary MANNY BLACKDOB: [facility] Insurance:Recognition PRO [id number] PPOPolicy Number: Repository [id number] Date: 11/10/2017 COMFORT A BLACKDOB: Primary COMFORT A BLACKDOB: [facility] Insurance:MEDICARE A [id number] [facility] [address] AND BPolicy Number: 9 [facility] [address], [place] [id number] [address], [place] Center [address]Ybd: (330) Date:6270-13-47Nbdt 666[address]Kqv: (330) Repository [phone] () Name:[facility] [phone] () 11/10/2017 Secondary COMFORT A BLACKDOB: [facility] Insurance:AETNAPolicy [id number] [place] Number: 9 [facility] [id number] [address] Center Date:5995-59-12Cxrr 23834Avn: (330) Repository Name:[facility] CARE [facility] () 11/10/2017 Tertiary COMFORT A BLACKDOB: [facility] Insurance:CIGNAPolicy [id number] [place] Number: 9 [facility] [id number] [address] Center Date:1988-75-92Gmma 85[address]Nlb: (330) Repository Name:[place] [address] () 11/03/2017 COMFORT [id number] Primary COMFORT A BLACKDOB: [place] [address] Insurance[place]ARE [id number] Community [address]Wgt: (330) PART A [facility] [phone] () Number: Repository [id number] Date:2017-10-30 11/03/2017 Secondary COMFORT A BLACKDOB: [place] Insurance:[facility] [id number] [facility] PLANPolicy Number: Repository [id number] Date:8081-14-49[address] [place] [address]MT: 11/03/2017 Tertiary MANNY W [place] Insurance:CIGNAPolicy BLACKDOB: [facility] Number: [id number] Hospital [id number] Repository Date:7585-47-95KR [facility] [address]5073PYZAXMJGHFZ, [place] [address]TD: 11/03/2017 Tertiary NOT GIVENUNK [place] Insurance:SELF PAY [facility] Number: Effective Repository Date:2017-10-30 11/03/2017 COMFORT [id number] Primary COMFORT A BLACKDOB: [place] [address] [id number] Community [address]Wpm: (330) PART A [facility] [phone] () Number: Repository [id number] Date:2017-10-30 11/03/2017 Secondary COMFORT A BLACKDOB: [place] Insurance:RURAL [id number] [facility] Repository [id number] Date:4803-27-26CK [address] [address]CB: 11/03/2017 Tertiary MANNY W [place] Insurance:CIGNAPolicy BLACKDOB: Community Number: [id number] Hospital [id number] Repository Date:3197-59-70UG [address]YRNSVPXUTSW [place] [address]HX: 11/03/2017 Tertiary NOT GIVENUNK [place] Insurance:SELF PAY [facility] Hospital Number: Effective Repository Date:2017-11-03 10/08/2017 COMFORT [id number] Primary COMFORT A BLACKDOB: [place] [address] [id number] Community [address]Hzn: (330) PART A [facility] [phone] () Number: Repository [id number] Date:2017-09-30 10/08/2017 Secondary MANNY W [place] Insurance:CIGNAPolicy BLACKDOB: Community Number: [id number] Hospital [id number] Repository Date:2605-55-25ID [address]LBJYQAYVZIY, [place] [address]ND: 10/08/2017 Tertiary COMFORT A BLACKDOB: [place] Insurance:RURAL [id number] [facility] PLANPolicy Number: Repository [id number] Date:8128-90-52BM [facility] [address] [place] [address]GO: 10/08/2017 Tertiary NOT GIVENUNK [place] Insurance:SELF PAY [facility] Hospital Number: Effective Repository Date:2017-10-08 10/05/2017 COMFORT [id number] Primary COMFORT A BLACKDOB: [place] [address] [id number] Community [address]Bqf: (330) PART A [facility] [phone] () Number: Repository [id number] Date:2017-10-05 10/05/2017 Secondary COMFORT A BLACKDOB: [place] Insurance:RURAL [id number] [facility] PLANPolicy Number: Repository [id number] Date:9974-43-17TT [address] [address]TM: 10/05/2017 Tertiary MANNY W [place] Insurance:CIGNAPolicy BLACKDOB: Community Number: [id number] Hospital [id number] Repository Date:0669-72-28YV [address]SISUEWGNOLG, [place] [address]LZ: 10/05/2017 Tertiary NOT GIVENUNK [place] Insurance:SELF PAY [facility] Number: Effective Repository Date:2017-10-05 10/04/2017 COMFORT [id number] Primary COMFORT A BLACKDOB: [place] [address] [id number] Community [address]Bzd: (330) PART A [facility] [phone] () Number: Repository [id number] Date:2017-10-04 10/04/2017 Secondary COMFORT A BLACKDOB: [place] Insurance:[facility] [id number] PLANPolicy Number: Repository [id number] Date:8201-53-75XH [facility] [address] [address]KP: 10/04/2017 Tertiary MANNY W [place] Insurance:[facility] BLACKDOB: Community Number: [id number] Hospital [id number] Repository Date:8699-13-59TH [address]MUNPCQMZNABRICHLAND, [place] [address]NT: 10/04/2017 Tertiary NOT GIVENUNK [place] Insurance:SELF PAY [facility] Hospital Number: Effective Repository Date:2017-10-04 10/02/2017 COMFORT [id number] Primary COMFORT A BLACKDOB: [place] [address] Insurance[place] [id number] Community [address]Hcw: (330) PART A [facility] [phone] () Number: Repository [id number] Date:2017-09-25 10/02/2017 Secondary COMFORT A BLACKDOB: [place] Insurance:RURAL [id number] [facility] PLANPolicy Number: Repository [id number] Date:5385-08-62EH [address] [address]DD: 10/02/2017 Tertiary MANNY W [place] Insurance:CIGNAPolicy BLACKDOB: Community Number: [id number] Hospital [id number] Repository Date:0723-13-18SU [address]LNSYUTGOJCQ, [place] [address]XX: 10/02/2017 Tertiary NOT GIVENUNK [place] Insurance:SELF PAY [facility] Hospital Number: Effective Repository Date:2017-09-25 10/02/2017 COMFORTJolanta [id number] Primary COMFORT A BLACKDOB: [place] [address] [id number] Community [address]Wkk: (330) PART A [facility] [phone] () Number: Repository [id number] Date:2017-09-25 10/02/2017 Secondary MANNY W [place] Insurance:[facility] BLACKDOB: Community Number: [id number] Hospital [id number] Repository Date:8975-53-63OI [address]ROALOLAJGUB, [place] [address]JJ: 10/02/2017 Tertiary COMFORT A BLACKDOB: [place] Insurance:[facility] [id number] County Medical Centericy Number: Repository [id number] Date:9569-95-99TR [address] [address]DR: 10/02/2017 Tertiary NOT GIVENUNK [place] Insurance:SELF PAY [facility] Hospital Number: Effective Repository Date:2017-10-02 09/29/2017 COMFORT A [id number] Primary COMFORT A BLACKDOB: [place] [address]ARE [id number] Community [address]Tsx: (330) PART A [facility] [phone] () Number: Repository [id number] Date:2017-09-29 09/29/2017 Secondary COMFORT A BLACKDOB: [place] Insurance:[facility] [id number] Hospital PLANPolicy Number: Repository [id number] Date:7522-75-68LS [address] [address]FG: 09/29/2017 Tertiary MANNY W [place] Insurance:CIGNAPolicy BLACKDOB: Community Number: [id number] Hospital [id number] Repository Date:5057-97-10UY [address]EORQQMGKZYICELSA [address]FG: 09/29/2017 Tertiary NOT GIVENUNK [place] Insurance:SELF PAY [facility] Number: Effective Repository Date:2017-09-29 09/25/2017 MANNY W Primary COMFORT A BLACKDOB: [place] [id number] Insurance:MEDICARE [id number] A [facility] [address]Mdx: (330) Number: Repository [phone] () [id number] Date:2017-03-14 09/25/2017 Secondary COMFORT A BLACKDOB: [place] Insurance:RURAL [id number] Number: Repository [id number] Date:9165-82-08HO [address] [address]ZX: 09/25/2017 Tertiary COMFORT A BLACKDOB: [place] Insurance:CIGNAPolicy [id number] [facility] Number: [facility] [id number] Repository Date:0779-57-02DW [address]EPOVQVRUDVO, [place] [address]FE: 09/25/2017 Tertiary NOT GIVENUNK [place] Insurance:SELF PAY [facility] Number: Effective Repository Date:2017-03-14 09/25/2017 COMFORT A [id number] Primary COMFORT A BLACKDOB: [place] [address] Insurance:MEDICARE [id number] PART A [facility] [address]Olq: (330) Number: Repository [phone] () [id number] Date:2017-09-24 09/25/2017 Secondary COMFORT A BLACKDOB: [place] Insurance:[facility] [id number] Number: Repository [id number] Date:3076-36-66IT [address] [address]ZT: 09/25/2017 Tertiary MANNY W [place] Insurance:CIGNAPolicy BLACKDOB: Community Number: [id number] Hospital [id number] Repository Date:1341-96-66BV [address]LNGGJIDAZCE, [place] [address]NF: 09/25/2017 Tertiary NOT GIVENUNK [place] Insurance:SELF PAY [facility] Number: Effective Repository Date:2017-09-25 08/24/2017 COMFORT A [id number] Primary COMFORT A BLACKDOB: [place] [address], Insurance:MEDICARE [id number] [facility] [address]Qer: PART A [facility] Number: Repository () [id number] Date:2017-08-24 08/24/2017 Secondary COMFORT A BLACKDOB: [place] Insurance:RURAL [id number] [facility] PLANPolicy Number: Repository [id number] Date:7903-58-26JY [address] [address]IA: 08/24/2017 Tertiary MANNY W [place] Insurance:CIGNAPolicy BLACKDOB: Community Number: [id number] Hospital [id number] Repository Date:3237-53-06SF [address]XVHTSSQWWCK, [place] [address]TY: 08/24/2017 Tertiary NOT GIVENUNK [place] Insurance:SELF PAY [facility] Hospital Number: Effective Repository Date:2017-08-24 06/02/2017 COMFORT A [id number] Primary COMFORT A BLACKDOB: [address] Insurance:MEDICARE [id number] [address] [address] [facility] [address]Ded: (330) Number: Repository [phone] () [id number] Date:2017-05-26 06/02/2017 Secondary COMFORT A BLACKDOB: [place] Insurance:RURAL [id number] [facility] PLANPolicy Number: Repository [id number] Date:1680-66-79EY [address] [address]BO: 06/02/2017 Tertiary MANNY W [place] Insurance:CIGNAPolicy BLACKDOB: Community Number: [id number] Hospital [id number] Repository Date:8742-70-72IE [address]PYVQSBFSXBWCELSA [address]XA: 06/02/2017 Tertiary NOT GIVENUNK [place] Insurance:SELF PAY [facility] Number: Effective Repository Date:2017-06-02 05/26/2017 COMFORT [place] [id number] Primary COMFORT A BLACKDOB: [facility] [address] Insurance:MEDICARE [id number] [place] [address] PART A [place] [id number]: (074) Number: Repository [phone] () [id number] Date:2017-05-26 05/26/2017 Secondary COMFORT A BLACKDOB: [place] Insurance:RURAL [id number] [facility] PLANPolicy Number: Repository [id number] Date:3934-36-45RN [address] [address]SW: 05/26/2017 Tertiary MANNY W [place] Insurance:CIGNAPolicy BLACKDOB: Community Number: [id number] Hospital [id number] Repository Date:6879-00-38WP [address]OYGEEXEYPQX, [place] [address]TG: 05/26/2017 Tertiary NOT GIVENUNK [place] Insurance:SELF PAY [facility] Number: Effective Repository Date:2017-05-26 05/16/2017 COMFORT [place] [id number] Primary COMFORT A BLACKDOB: [place] [address] Insurance[place]ARE [id number] [facility] [address]Kzq: (330) PART A [facility] [phone] () Number: Repository [id number] Date:2017-05-14 05/16/2017 Secondary COMFORT A BLACKDOB: [place] Insurance:RURAL [id number] [facility] PLANPolicy Number: Repository [id number] Date:9998-01-41RJ [address] [address]CW: 05/16/2017 Tertiary MANNY W [place] Insurance:CIGNAPolicy BLACKDOB: Community Number: [id number] Hospital [id number] Repository Date:8215-62-17VL [address]WLTFLAKBRZL, [place] [address]BN: 05/16/2017 Tertiary NOT GIVENUNK [place] Insurance:SELF PAY [facility] Number: Effective Repository Date:2017-05-16 05/14/2017 COMFORT CONNOR29 Primary COMFORT A BLACKDOB: [place] [address] [id number] [facility] [address]Tcj: (330) PART A [place] [phone] () Number: Repository [id number] Date:2017-05-13 05/14/2017 Secondary COMFORT A BLACKDOB: [place] Insurance:RURAL [id number] [facility] PLANPolicy Number: Repository [id number] Date:5567-28-35YA [address] [address]LC: 05/14/2017 Tertiary MANNY W [place] Insurance:CIGNAPolicy BLACKDOB: Community Number: [id number] Hospital [id number] Repository Date:9179-36-32OH [address]NEUCPIRJQSV, [place] [address]ON: 05/14/2017 Tertiary NOT GIVENUNK [place] Insurance:SELF PAY [facility] Number: Effective Repository Date:2017-05-14 05/14/2017 COMFORT CONNOR29 Primary COMFORT A BLACKDOB: [place] [address] [id number] [facility] [address]Utm: (330) PART A [place] [id number] () Number: Repository [id number] Date:2017-05-14 05/14/2017 Secondary COMFORT A BLACKDOB: [place] Insurance:RURAL [id number] [facility] PLANPolicy Number: Repository [id number] Date:0874-93-41HR [address] [address]QK: 05/14/2017 Tertiary MANNY W [place] Insurance:CIGNAPolicy BLACKDOB: Community Number: [id number] Hospital [id number] Repository Date:7213-40-61UH [address]UQMNOZLYOGN, [place] [address]BK: 05/14/2017 Tertiary NOT GIVENUNK [place] Insurance:SELF PAY [facility] Number: Effective Repository Date:2017-05-14 05/09/2017 COMFORT CONNOR29 Primary COMFORT A BLACKDOB: [place] [address] [id number] [place] [id number]: (330) PART A [place] [phone] () Number: Repository [id number] Date:2017-04-24 05/09/2017 Secondary COMFORT A BLACKDOB: [place] Insurance:RURAL [id number] [facility] PLANPolicy Number: Repository [id number] Date:9972-63-26EI [address] [address]RX: 05/09/2017 Tertiary MANNY W [place] Insurance:CIGNAPolicy BLACKDOB: Community Number: [id number] Hospital [id number] Repository Date:6143-99-70DO [address]PBWQQFSZLGK, [place] [address]TO: 05/09/2017 Tertiary NOT GIVENUNK [place] Insurance:SELF PAY [facility] Number: Effective Repository Date:2017-05-09 05/08/2017 COMFORT CONNOR29 Primary COMFORT A BLACKDOB: [place] [address] Insurance[place] [id number] [facility] [address]Mmn: (330) PART A [facility] [phone] () Number: Repository [id number] Date:2017-04-23 05/08/2017 Secondary COMFORT A BLACKDOB: [place] Insurance:RURAL [id number] [facility] PLANPolicy Number: Repository [id number] Date:1021-93-41TH [address] [address]HH: 05/08/2017 Tertiary MANNY W [place] Insurance:CIGNAPolicy BLACKDOB: Community Number: [id number] Hospital [id number] Repository Date:9127-06-65PD [facility] 399513GXTFQVMHBNV, [place] [address]BU: 05/08/2017 Tertiary NOT GIVENUNK [place] Insurance:SELF PAY [facility] Number: Effective Repository Date:2017-04-23 05/04/2017 COMFORT [id number] Primary COMFORT A BLACKDOB: [place] [address] [id number] [facility] [address]Non: (330) PART A [place] [id number] () Number: Repository [id number] Date:2017-05-04 05/04/2017 Secondary COMFORT A BLACKDOB: [place] Insurance:RURAL [id number] [facility] PLANPolicy Number: Repository [id number] Date:[id number] [facility] [address] [id number]: 05/04/2017 Tertiary MANNY W Alejandra Insurance:CIGNAPolicy BLACKDOB: Community Number: [id number] Hospital [id number] Repository Date:[id number] [facility] [id number] [address]RF: 05/04/2017 Tertiary NOT GIVENUNK [place] Insurance:SELF PAY [facility] Number: Effective Repository Date:2017-05-04 04/20/2017 COMFORT [id number] Primary COMFORT A BLACKDOB: [address] Insurance:MEDICARE [id number] [facility] [id number]: (330) PART A [facility] [phone] () Number: Repository [id number] Date:2017-04-19 04/20/2017 Secondary COMFORT A BLACKDOB: Alejandra Insurance:RURAL [id number] [facility] PLANPolicy Number: Repository [id number] Date:1348-98-84QN [address] [address]BO: 04/20/2017 Tertiary MANNY W [place] Insurance:CIGNAPolicy BLACKDOB: Community Number: [id number] Hospital [id number] Repository Date:3269-42-85HY [facility] [address]99815RMXQCMKPX[place], [place] [address]JQ: 04/20/2017 Tertiary NOT GIVENUNK [place] Insurance:SELF PAY [facility] Number: Effective Repository Date:2017-04-19 04/20/2017 COMFORT [id number] Primary COMFORT A BLACKDOB: [place] [address] [id number] [facility] [id number]: (330) PART A [place] [phone] () Number: Repository [id number] Date:2017-04-19 04/20/2017 Secondary COMFORT A BLACKDOB: [place] Insurance:RURAL [id number] [facility] PLANPolicy Number: Repository [id number] Date:7726-93-96SL [address] [place] [address]IP: 04/20/2017 Tertiary MANNY W Alej[place] Insurance:CIGNAPolicy BLACKDOB: Community Number: [id number] Hospital [id number] Repository Date:4619-62-15FH [address]XXFFCRDTQMN, [place] [address]NZ: 04/20/2017 Tertiary NOT GIVENUNK [place] Insurance:SELF PAY [facility] Hospital Number: Effective Repository Date:2017-04-20 04/20/2017 COMFORT [id number] Primary COMFORT A BLACKDOB: [place] [address] [id number] Community [id number]: (330) PART A [facility] [phone] () Number: Repository [id number] Date:2017-04-19 04/20/2017 Secondary COMFORT A BLACKDOB: [place] Insurance:RURAL [id number] [facility] PLANPolicy Number: Repository [id number] Date:8559-11-21TA [address] [address]UI: 04/20/2017 Tertiary MANNY W [place] Insurance:CIGNAPolicy BLACKDOB: Community Number: [id number] Hospital [id number] Repository Date:8902-45-95KG [address]DLNMBXDABBH, [place] [address]KK: 04/20/2017 Tertiary NOT GIVENUNK [place] Insurance:SELF PAY [facility] Hospital Number: Effective Repository Date:2017-04-20 04/20/2017 COMFORT [id number] Primary COMFORT A BLACKDOB: [place] [address] [id number] [place] [id number]: (330) PART A [place] [phone] () Number: Repository [id number] Date:2017-04-19 04/20/2017 Secondary COMFORT A BLACKDOB: [place] Insurance:RURAL [id number] [facility] PLANPolicy Number: Repository [id number] Date:3714-33-34NY [address] [place] [address]ZS: 04/20/2017 Tertiary MANNY W Alej[place] Insurance:CIGNAPolicy BLACKDOB: Community Number: [id number] Hospital [id number] Repository Date:6882-66-19CI [address]DEUZJPXSQYS, [place] [address]CW: 04/20/2017 Tertiary NOT GIVENUNK [place] Insurance:SELF PAY [facility] Number: Effective Repository Date:2017-04-20 04/20/2017 COMFORT [id number] Primary COMFORT A BLACKDOB: [place] [address] [id number] [facility] [address]Jib: (701) PART A [facility] [phone] () Number: Repository [id number] Date:2017-04-19 04/20/2017 Secondary COMFORT A BLACKDOB: [place] Insurance:RURAL [id number] [facility] Number: Repository [id number] Date:0490-31-81NQ [address] [address]ED: 04/20/2017 Tertiary MANNY W [place] Insurance:CIGNAPolicy BLACKDOB: Community Number: [id number] Hospital [id number] Repository Date:3438-39-60TA [address]MURQJMVVTHH, [place] [address]GD: 04/20/2017 Tertiary NOT GIVENUNK [place] Insurance:SELF PAY [facility] Number: Effective Repository Date:2017-04-20 04/20/2017 COMFORT [id number] Primary COMFORT A BLACKDOB: [place] [address] Insurance[place] [id number] [id number]: (330) PART A [place] [phone] () Number: Repository [id number] Date:2017-04-19 04/20/2017 Secondary COMFORT A BLACKDOB: [place] Insurance:RURAL [id number] [facility] Number: Repository [id number] Date:4614-55-60UT [address] [address]PL: 04/20/2017 Tertiary MANNY W [place] Insurance:CIGNAPolicy BLACKDOB: Community Number: [id number] Hospital [id number] Repository Date:0145-57-11KM [address]OPGVZORPLND, [place] [address]YU: 04/20/2017 Tertiary NOT GIVENUNK [place] Insurance:SELF PAY [facility] Number: Effective Repository Date:2017-04-20 04/20/2017 COMFORT [id number] Primary COMFORT A BLACKDOB: [place] [address] [id number] Community [id number]: (330) PART A BPolicy [place] [address] () Number: Repository [id number] Date:2017-04-19 04/20/2017 Secondary COMFORT A BLACKDOB: Ale[place]andra Insurance:RURAL [id number] Number: Repository [id number] Date:4371-78-60DP [address] [address]MY: 04/20/2017 Tertiary MANNY W [place] Insurance:CIGNAPolicy BLACKDOB: Community Number: [id number] Hospital [id number] Repository Date:7069-68-84KQ [address]EDNJWZRLPJS, [place] [address]LL: 04/20/2017 Tertiary NOT GIVENUNK [place] Insurance:SELF PAY [facility] Hospital Number: Effective Repository Date:2017-04-20 04/20/2017 COMFORT [id number] Primary COMFORT A BLACKDOB: [place] [address] [id number] [address]Tel: (330) PART A [place] [phone] () Number: Repository [id number] Date:2017-04-19 04/20/2017 Secondary COMFORT A BLACKDOB: [place] Insurance:RURAL [id number] Number: Repository [id number] Date:4413-17-99BC [address] [address]NB: 04/20/2017 Tertiary MANNY W [place] Insurance:CIGNAPolicy BLACKDOB: Community Number: [id number] Hospital [id number] Repository Date:0520-15-81TI [address]DDMVSKVSGXA, [place] [address]NN: 04/20/2017 Tertiary NOT GIVENUNK [place] Insurance:SELF PAY [facility] Number: Effective Repository Date:2017-04-20 04/19/2017 COMFORT [id number] Primary COMFORT A BLACKDOB: [place] [address] [id number] [address]Tel: (330) PART A [address] () Number: Repository [id number] Date:2017-04-19 04/19/2017 Secondary COMFORT A BLACKDOB: Ale[place] Insurance:RURAL [id number] [facility] PLANPolicy Number: Repository [id number] Date:0838-63-32HP [address] [address]MN: 04/19/2017 Tertiary MANNY W [place] Insurance:CIGNAPolicy BLACKDOB: Community Number: [id number] Hospital [id number] Repository Date:5893-38-84MV [address]LDQWQDXRJFP, [place] [address]FS: 04/19/2017 Tertiary NOT GIVENUNK [place] Insurance:SELF PAY [facility] Number: Effective Repository Date:2017-04-19 04/19/2017 COMFORT [id number] Primary COMFORT A BLACKDOB: [place] [address] [id number] Community [id number]: (330) PART A [address] () Number: Repository [id number] Date:2017-04-19 04/19/2017 Secondary COMFORT A BLACKDOB: Ale[place] Insurance:RURAL [id number] [facility] PLANPolicy Number: Repository [id number] Date:4798-65-74EK [address] [address]UI: 04/19/2017 Tertiary MANNY W [place] Insurance:CIGNAPolicy BLACKDOB: Community Number: [id number] Hospital [id number] Repository Date:1303-57-42GH [address]CXJJSBULWZE, [place] [address]CV: 04/19/2017 Tertiary NOT GIVENUNK [place] Insurance:SELF PAY [facility] Number: Effective Repository Date:2017-04-19 03/14/2017 COMFORT [id number] Primary COMFORT A BLACKDOB: [place] [address] [id number] Community [id number]: (330) PART A [facility] [phone] () Number: Repository [id number] Date:2017-01-18 03/14/2017 Secondary COMFORT A BLACKDOB: [place] Insurance:RURAL [id number] [facility] PLANPolicy Number: Repository [id number] Date:6331-04-04TP [address] [address]ZH: 03/14/2017 Tertiary Manny W [place] Insurance:CIGNAPolicy BlackDOB: Community Number: [id number] Hospital [id number] Repository Date:0357-32-84ZD [address]YAQTYRHXTZN, [place] [address]ZI: 03/14/2017 Tertiary NOT GIVENUNK [place] Insurance:SELF PAY [facility] Number: Effective Repository Date:2017-01-18 03/10/2017 Manny W Primary COMFORT A BLACKDOB: [place] [id number] Insurance:MEDICARE [id number], [place] PART A [facility] [address]Dhz: (330) Number: Repository [phone] () [id number] Date:2005-11-10 03/10/2017 Secondary COMFORT A BLACKDOB: [place] Insurance:CIGNAPolicy [id number] [facility] Number: [facility] [id number] Repository Date:9944-03-03DU [address]ROFJMTXSNQU, [place] [address]LS: 03/10/2017 Tertiary COMFORT A BLACKDOB: [place] Insurance:RURAL [id number] [facility] PLANPolicy Number: Repository [id number] Date:2693-78-08BO [address] [address]RV: 03/10/2017 Tertiary NOT GIVENUNK [place] Insurance:SELF PAY [facility] Number: Effective Repository Date:2016-12-13 03/10/2017 MANNY W Primary COMFORT A BLACKDOB: [place] [id number] [place] Insurance:MEDICARE [id number] [address] PART A [facility] [address]Dlz: Number: Repository [id number] (HP) Date:2005-11-10 03/10/2017 Secondary COMFORT HUDOB: [place] Insurance[facility] [id number] [facility] Number: [facility] [id number] Repository Date:6190-14-93HP [address]EJGHJCUDWCO, [place] [address]IB: 03/10/2017 Tertiary COMFORT [place] FANTAB: Alejandra Insurance:RURAL [id number] [facility] Number: Repository [id number] Date:3822-16-14NJ [address] [address]YL: 03/10/2017 Tertiary NOT GIVENUNK Ale[place] Insurance:SELF PAY [facility] Hospital Number: Effective Repository Date:2017-03-10
== END ==
PROVIDERS: Family Provider Internal Medicine; PCP Internal Medicine; Referring Provider Nurse Practitioner; Visit Provider Nurse Practitioner
DX: R05 Cough (principal)
CPT/HCPCS: 71046

== ENCOUNTER → 2018-03-16 11:25 | Outpatient (CLI) | payer MEDICARE, OTHER, SELFPAY ==
[2018-03-06 14:56] VITALS: BMI 33.3
[2018-03-16 12:52] LABS: Absolute Lymphocyte Count 1.32 X10^3/ul (0.83-4.51); Absolute Neutrophil Count 4.1 X10^3/uL (2.0-7.7); Basophil# 0.02 X10^3/uL; Basophil% 0.3 % (0-1); Eosinophil# 0.09 X10^3/uL; Eosinophils% 1.4 % (0-5); Hematocrit 32.2 % (37-47); Hemoglobin 9.6 g/dl (12.0-15.0); Lymphocyte # 1.32 X10^3/ul (4.0); Lymphocyte % 21.1 % (19-41); Mean Corp Hgb Conc 29.8 g/gl (32-36); Mean Corpuscular Hgb 24.7 pg (27.0-32.0); Mean Corpuscular Volume 82.8 fL (81-99); Mean Platelet Vol. 10.9 fl (6.2-12.0); Monocyte# 0.71 X10^3/uL; Monocyte% 11.3 % (0-10); Neutrophil # 4.11 X10^3/uL (2.7-7.7); Neutrophil % 65.6 % (47-70); Platelet Count 238 K/mm3 (150-450); RBC Distribution Width CV 15.5 % (11.6-14.6); RBC Distribution Width SD 46.8 fl (35.1-43.9); Red Blood Count 3.89 M/mm3 (4.2-5.4); White Blood Count 6.3 K/mm3 (4.4-11.0)
[2018-03-16 12:54] LABS: POSITIVE COUNT NO; POSITIVE DIFFERENTIAL NO; POSITIVE MORPHOLOGY NO
[2018-03-16 13:14] LABS: Anion Gap 10 (5-15); BNP,B-Type NATRIURETIC PEPTIDE 119.3 pg/mL (0-100); BUN 20 mg/dL (7-18); BUN/Creat Ratio 15.2 RATIO (10-20); Calcium,Total 8.9 mg/dL (8.5-10.1); Chloride 102 mmol/L (98-107); Creatinine, Serum 1.32 mg/dL (0.55-1.02); EST Glomerular Filtration Rate 41 mL/min (>60); Est Glom Filt Rate - Afr Amer 50 mL/min (>60); Glucose 138 mg/dL (74-106); Potassium 3.8 mmol/L (3.5-5.1); Sodium Level 139 mmol/L (136-145)
== END ==
PROVIDERS: Family Provider Internal Medicine; PCP Internal Medicine; Referring Provider Nurse Practitioner Family; Visit Provider Nurse Practitioner Family
DX: I48.0 Paroxysmal atrial fibrillation (principal); R06.09 Other forms of dyspnea
CPT/HCPCS: 36415; 80048; 83880; 85025

== ENCOUNTER → 2018-03-19 12:47 | Outpatient (CLI) | payer MEDICARE, OTHER, SELFPAY ==
[2018-03-06 14:56] VITALS: BMI 33.3
--- NOTE | 2018-03-19 12:49 | ADUL_ITS ---
Reason For Study: F/U PSA thrombin injection Right Velocities RT PORTFOLIO MGR - .95 x .91 cm with a velocity of 99.0 cm/s RT CFV demonstrates normal phasic flow signal. Pseudoaneurysm not visualized. Procedure Exam performed in department. Interpretation Summary Normal right common femoral artery and vein with no evidence for pseudoaneurysm. History of thrombin injection Ordering Physician: Je Ceron Referring Physician: Je Ceron Performed By: Sanaz Sheth RVT
== END ==
PROVIDERS: Family Provider Internal Medicine; PCP Internal Medicine; Referring Provider Surgery; Visit Provider Surgery
DX: I97.89 Other postprocedural complications and disorders of the circulatory system, not elsewhere classified (principal); I72.9 Aneurysm of unspecified site
CPT/HCPCS: 93926

== ENCOUNTER → 2018-04-07 12:52 | Outpatient (CLI) | payer MEDICARE, OTHER, SELFPAY ==
[2018-03-06 14:56] VITALS: BMI 33.3
[2018-03-24 13:19] VITALS: BMI 33.3
[2018-04-07 14:03] LABS: Absolute Lymphocyte Count 1.68 X10^3/ul (0.83-4.51); Absolute Neutrophil Count 3.8 X10^3/uL (2.0-7.7); Basophil# 0.03 X10^3/uL; Basophil% 0.5 % (0-1); Eosinophils% 1.6 % (0-5); Hematocrit 33.6 % (37-47); Lymphocyte # 1.68 X10^3/ul (4.0); Lymphocyte % 27.2 % (19-41); Mean Corp Hgb Conc 29.8 g/gl (32-36); Mean Corpuscular Hgb 24.7 pg (27.0-32.0); Mean Platelet Vol. 10.4 fl (6.2-12.0); Monocyte# 0.59 X10^3/uL; Monocyte% 9.5 % (0-10); Neutrophil # 3.77 X10^3/uL (2.7-7.7); Platelet Count 236 K/mm3 (150-450); RBC Distribution Width CV 16.1 % (11.6-14.6); RBC Distribution Width SD 48.5 fl (35.1-43.9); Red Blood Count 4.05 M/mm3 (4.2-5.4); White Blood Count 6.2 K/mm3 (4.4-11.0)
[2018-04-07 14:09] LABS: POSITIVE COUNT NO; POSITIVE DIFFERENTIAL NO; POSITIVE MORPHOLOGY NO
[2018-04-07 14:25] LABS: Anion Gap 9 (5-15); BUN 18 mg/dL (7-18); BUN/Creat Ratio 12.9 RATIO (10-20); Calcium,Total 9.2 mg/dL (8.5-10.1); Chloride 103 mmol/L (98-107); EST Glomerular Filtration Rate 39 mL/min (>60); Est Glom Filt Rate - Afr Amer 47 mL/min (>60); Glucose 131 mg/dL (74-106); Potassium 4.5 mmol/L (3.5-5.1); Sodium Level 141 mmol/L (136-145)
== END ==
PROVIDERS: Family Provider Internal Medicine; PCP Internal Medicine; Referring Provider Nurse Practitioner Family; Visit Provider Nurse Practitioner Family
DX: I25.10 Atherosclerotic heart disease of native coronary artery without angina pectoris (principal); I43 Cardiomyopathy in diseases classified elsewhere; E78.5 Hyperlipidemia, unspecified; I10 Essential (primary) hypertension; Z95.1 Presence of aortocoronary bypass graft; D64.9 Anemia, unspecified; I48.0 Paroxysmal atrial fibrillation
CPT/HCPCS: 36415; 80048; 85025

== ENCOUNTER → 2018-06-29 10:59 | Outpatient (CLI) | payer MEDICARE, OTHER, SELFPAY ==
[2018-05-14 10:41] VITALS: BMI 32.5
--- NOTE | 2018-06-29 11:00 | ADUL_ITS ---
Reason For Study: F/U PSA Thrombin Inejction Right Velocities Rt SHELLACKER measures 0.91 x 0.83 cm with a velocity of 141.8 cm/sec. Rt CFV demonstrates normal phasic flow patterns. RT SFA PSV 93 cm/sec Rt FV deomstartes normal phasic flow patterns. Pseudoaneurysm not visualized. Interpretation Summary No right groin pseudo aneurysm identified with normal flow patterns right common femoral artery and vein and right superficial femoral artery. Ordering Physician: Je Ceron Referring Physician: Nia Uriostegui M.D. Performed By: Lisa Gutierrez RVT
== END ==
PROVIDERS: Family Provider Internal Medicine; PCP Internal Medicine; Referring Provider Surgery; Visit Provider Surgery
DX: I72.8 Aneurysm of other specified arteries (principal)
CPT/HCPCS: 93926

== ENCOUNTER → 2018-08-06 10:33 | Outpatient (CLI) | payer MEDICARE, OTHER, SELFPAY ==
[2018-08-06 09:51] VITALS: BMI 32.8
--- NOTE | 2018-08-06 10:35 | RAD_ITS ---
STUDY: X-RAY CHEST REASON FOR EXAM: Female, 77 years old. Cough, shortness of breath TECHNIQUE: PA and lateral views of the chest. COMPARISON: 01/06/2018 FINDINGS: Status post median sternotomy. The lungs are clear and expanded. There is no demonstrated pleural abnormality. There is moderate cardiac enlargement. Normal mediastinum and emil. Normal visualized pulmonary arteries. Normal visualized aortic arch and descending thoracic aorta. Normal visualized thoracic spine. Normal visualized ribs, clavicles, and shoulders. There is no demonstrated abnormality of the visualized soft tissue structures of the upper abdomen. RAD/Chest PA and Lateral IMPRESSION: No active disease. Electronically Signed: Pastor Kern MD at 16:27 EDT Tel , Service support ,
[2018-08-06 14:11] LABS: Absolute Lymphocyte Count 1.69 X10^3/ul (0.83-4.51); Absolute Neutrophil Count 5.9 X10^3/uL (2.0-7.7); Basophil# 0.02 X10^3/uL; Basophil% 0.2 % (0-1); Eosinophil# 0.14 X10^3/uL; Eosinophils% 1.6 % (0-5); Hematocrit 33.2 % (37-47); Hemoglobin 10.2 g/dl (12.0-15.0); Lymphocyte # 1.69 X10^3/ul (4.0); Lymphocyte % 19.8 % (19-41); Mean Corp Hgb Conc 30.7 g/gl (32-36); Mean Corpuscular Hgb 24.8 pg (27.0-32.0); Mean Corpuscular Volume 80.8 fL (81-99); Mean Platelet Vol. 10.9 fl (6.2-12.0); Monocyte# 0.77 X10^3/uL; Neutrophil # 5.87 X10^3/uL (2.7-7.7); Platelet Count 248 K/mm3 (150-450); RBC Distribution Width CV 15.8 % (11.6-14.6); RBC Distribution Width SD 45.7 fl (35.1-43.9); Red Blood Count 4.11 M/mm3 (4.2-5.4); White Blood Count 8.5 K/mm3 (4.4-11.0)
[2018-08-06 14:14] LABS: POSITIVE COUNT NO; POSITIVE DIFFERENTIAL NO; POSITIVE MORPHOLOGY NO
[2018-08-06 14:25] LABS: Anion Gap 8 (5-15); BUN 16 mg/dL (7-18); BUN/Creat Ratio 12.1 RATIO (10-20); Calcium,Total 8.9 mg/dL (8.5-10.1); Chloride 103 mmol/L (98-107); Creatinine, Serum 1.32 mg/dL (0.55-1.02); EST Glomerular Filtration Rate 41 mL/min (>60); Est Glom Filt Rate - Afr Amer 50 mL/min (>60); Glucose 115 mg/dL (74-106); Potassium 4.1 mmol/L (3.5-5.1); Sodium Level 141 mmol/L (136-145); Uric Acid 9.5 mg/dL (2.6-6.0)
[2018-08-06 14:38] LABS: BNP,B-Type NATRIURETIC PEPTIDE 129.2 pg/mL (0-100)
== END ==
PROVIDERS: Family Provider Internal Medicine; PCP Internal Medicine; Referring Provider Nurse Practitioner Family; Visit Provider Nurse Practitioner Family
DX: M10.9 Gout, unspecified (principal); R06.09 Other forms of dyspnea; I25.10 Atherosclerotic heart disease of native coronary artery without angina pectoris; I48.0 Paroxysmal atrial fibrillation
CPT/HCPCS: 36415; 71046; 80048; 83880; 84550; 85025

== ENCOUNTER → 2018-11-02 13:31 | Outpatient (CLI) | payer MEDICARE, OTHER, SELFPAY ==
[2018-08-06 09:51] VITALS: BMI 32.8
--- NOTE | 2018-11-02 13:33 | CT_ITS ---
STUDY: CT SOFT TISSUE NECK WITH CONTRAST REASON FOR EXAM: Female, 77 years old. Fullness of bilateral supraclavicular fossae RADIATION DOSAGE (If Supplied By Facility): CTDIvol = ( 19.85 ) mGy, DLP = ( 500.44 ) mGycm TECHNIQUE: The patient was scanned in a multi-detector CT scanner. High resolution transaxial imaging was performed following intravenous administration of IV Isovue 300 100CC. Sagittal and coronal images were reconstructed. Individualized dose optimization techniques were used for this CT. COMPARISON: 13 November 2016. FINDINGS: There is increased lipid content bilaterally in the supraglottic fossa without masses, fluid collections or inflammatory change. This appearance is similar to prior CT chest from 2017. Normal bilateral parotid glands. Normal bilateral pipe puller spaces. Normal bilateral parapharyngeal spaces. Normal bilateral carotid spaces. There is retropharyngeal course of the right common carotid, an anatomic variant. Normal bilateral sublingual and submandibular glands and spaces. Normal visualized nasopharynx. Normal retropharyngeal space. Normal perivertebral space. Normal visualized bilateral faucial tonsils. The visualized tongue, tongue base and oropharynx are normal. The visualized cervical lymph nodes (levels I-) are within normal size limits, and maintain normal morphology. There is no demonstrated solid or cystic mass lesion. There is no abnormal contrast enhancement. Normal epiglottis, bilateral vallecula and hypopharynx. The pre-epiglottic and paraglottic adipose spaces are normal. Normal visualized bilateral piriform sinuses, aryepiglottic folds, vocal cords, and arytenoid-cricoid articulations. Normal subglottic trachea. Normal bilateral lobes of the thyroid gland. Normal visualized pulmonary apices. Normal visualized paranasal sinuses. Normal visualized cervical spine. There is prior sternotomy. CT/Soft Tissue Neck WITH Contrast IMPRESSION: 1. Normal enhanced CT examination of the soft tissues of the neck. 2. No masses or abnormalities in the infraclavicular fossa, elevated limited content. Electronically Signed: Jesi Mathias, at 17:26 EDT Tel , Service support ,
[2018-11-02 13:45] LABS: CREATININE FINGERSTICK 1.2 mg/dL (0.55-1.02)
== END ==
PROVIDERS: Family Provider Internal Medicine; PCP Internal Medicine; Referring Provider Internal Medicine; Visit Provider Internal Medicine
DX: R22.2 Localized swelling, mass and lump, trunk (principal)
CPT/HCPCS: 70491; Q9967

== ENCOUNTER → 2019-03-04 09:15 | Outpatient (CLI) | payer MEDICARE, OTHER, SELFPAY ==
[2019-02-09 08:26] VITALS: BMI 32.5
[2019-03-04 09:52] LABS: Hematocrit 31.3 % (37-47); Hemoglobin 9.3 g/dL (12.0-15.0); Mean Corp Hgb Conc 29.7 g/dL (32-36); Mean Corpuscular Hgb 24.8 pg (27.0-32.0); Mean Corpuscular Volume 83.5 fL (81-99); Mean Platelet Vol. 10.2 fl (6.2-12.0); Platelet Count 258 K/mm3 (150-450); RBC Distribution Width CV 15.3 % (11.6-14.6); RBC Distribution Width SD 46.5 fl (35.1-43.9); Red Blood Count 3.75 M/mm3 (4.2-5.4); Reticulocyte Count 1.18 % (0.5-1.5); White Blood Count 7.6 K/mm3 (4.4-11.0)
[2019-03-04 10:27] LABS: Ferritin 8 ng/mL (8-252); Iron 25 ug/dL (50-170)
[2019-03-05 16:07] LABS: Endomysial Antibody IgA Negative (Negative)
[2019-03-05 17:17] LABS: Immunoglobulin A 138 mg/dL (64-422); t-Transglutaminase IgA <2 U/mL (0-3)
== END ==
PROVIDERS: PCP Internal Medicine; Referring Provider Internal Medicine Gastroenterology; Visit Provider Internal Medicine Gastroenterology
DX: D50.9 Iron deficiency anemia, unspecified (principal)
CPT/HCPCS: 36415; 82728; 82784; 83516; 83540; 85027; 85045; 86255

== ENCOUNTER 2019-03-26 15:45 | Inpatient (IN) | payer MEDICARE, OTHER, SELFPAY ==
[2019-03-24 11:50] VITALS: BMI 30.7
[2019-03-26] VITALS (16 sets, daily range): BP systolic 108–130; BP diastolic 43–67; PULSE 75–80; RESP 13–20; TEMP 36.2–37.2; O2SAT 92–98; BMI 30.7; BMI 30.8
--- NOTE | 2019-03-26 16:40 | EKG12_ITS ---
Test Reason : DIZZINESS Blood Pressure : / mmHG Vent. Rate : 073 BPM Atrial Rate : 073 BPM P-R Int : 178 ms QRS Dur : 126 ms QT Int : 428 ms P-R-T Axes : 057 -47 123 degrees QTc Int : 471 ms Normal sinus rhythm Left axis deviation Left bundle branch block Abnormal ECG Confirmed by ASAEL VANCE ([id number]), newspaper copy editor AMIRA CASTRO ([id number]) on 03/29/2019 3:38:20 PM Referred By: Sherrie Cisse Confirmed By:ASAEL VANCE
--- NOTE | 2019-03-26 16:42 | ED.DCSUM_ITS ---
History of Present Illness Chief Complaint: GI Bleed Informant: Patient - Abdominal Pain/Flank Pain Onset: Today Timing: Intermittent Location: Diffuse - Diarrhea/Melena/Hematochezia GI Symptom: Hematochezia Onset: Today Stool Quality: Watery, MONICA per rectum Narrative: Patient is a 78-year-old female with history of chronic iron deficiency anemia presenting with bright red blood per rectum. The patient states that she had 4- 5 episodes today where she had the urge to defecate and when she is on the toilet there was a gush of blood that came out. She states it was bright red. She is not sure if she saw any clots. She cannot see the bottom of the toilet bowl because the amount of blood. States afterwards she gets a diffuse mild abdominal pain that she has a hard time describing besides saying it uncomfortable. She notes her small amount of blood with wiping. She is not having significant blood on her underwear. She denies any nausea, vomiting or urinary symptoms. She does have some chronic shortness of breath and dyspnea on exertion. She states today she is lightheaded. She notes 10 days ago she had a colonoscopy with [address] Alfonso. Patient is currently on Eliquis. She resumed her Eliquis after her colonoscopy. In addition patient started iron infusions 2 days ago due to her chronic anemia. Patient was having a colonoscopy to look for a source of the blood loss. This was not found. Patient denies any other complaints at this time. She has any history of GI bleed. Patient was placed on doxycycline earlier this week for upper respiratory symptoms. Past Medical History - Allergies and Home Meds Allergies/Adverse Reactions: Allergies lisinopril Adverse Reaction (Verified 03/26/19 15:46) cough Primary Care Physician: Nia Uriostegui DO [Primary Care Provider] - Past Medical History: - - Iron deficiency anemia, coronary artery disease status post CABG, congestive heart failure, proximal atrial fibrillation, status post ablation, hyperlipidemia, history of meningioma status post resection, DM type II Surgical History: - - CABG, meningioma resection, colonoscopy, hysterectomy Lives: Spouse/ Significant Other Smoking Status: Never smoker - Family History Maternal Family History: Family History (Last Reviewed 02/09/19 @ 10:27 by Jonel Winchester MD) Father CAD (coronary artery disease) Hypertension Cancer Mother CAD (coronary artery disease) Hypertension Diabetes Brother CAD (coronary artery disease) Sister CAD (coronary artery disease) Myocardial infarction Family History: Reports: No pertinent history Paternal Family History: Family History (Last Reviewed 02/09/19 @ 10:27 by Jonel Winchester MD) Father CAD (coronary artery disease) Hypertension Cancer Mother CAD (coronary artery disease) Hypertension Diabetes Brother CAD (coronary artery disease) Sister CAD (coronary artery disease) Myocardial infarction Family History: Reports: No pertinent history Additional Family History: No history of CHF Review of Systems General: Reports: - - Lightheaded. Denies: Chills, Fever, Sweats Eyes: Denies: Visual changes - bilaterally, Diplopia ENT: Denies: Rhinorrhea, Sore throat Cardiovascular: Denies: Chest pain, Palpitations Respiratory: Reports: Dyspnea, Dyspnea on exertion. Denies: Cough Gastrointestinal: Reports: Abdominal pain, Hematochezia. Denies: Nausea, Vomiting, Diarrhea, Melena Genitourinary: Denies: Dysuria, Hematuria, Frequency Musculoskeletal: Denies: Back pain, Extremity Pain Skin: Denies: Rash, Wounds Neurological: Denies: Headache, Weakness, Numbness Physical Exam Vital Signs/Narrative: Vital Signs Temp Pulse Resp BP Pulse Ox 03/26/19 16:39 76 20 H 119/50 L 97 03/26/19 15:46 99.0 F 77 16 117/60 97 Inital Vital Signs reviewed: Yes General: Well nourished, Well developed, No Acute Distress Head: Normocephalic, Atraumatic Eyes: Perrl, EOMI, Pale conjunctiva ENT: Moist mucous membranes, No rhinorrhea Neck: Supple, Nontender Cardiovascular: Regular rate, Regular rhythm, No murmurs Respiratory: No distress, CTA bilaterally, Chest nontender, - - Coarse breath sounds, no wheezing appreciated, no crackles Abdomen: Soft, Nontender, Nondistended, Normal bowel sounds Rectal: Guaiac positive, - - Dark red blood on rectal exam, no hemorrhoids appreciated Back: Nontender, Normal Inspection Extremities: Nontender, No edema Skin: Normal color, No rash Neurological: Alert, Oriented x3, Cranial nerves II-XII grossly intact, Normal Strength, Normal Sensation Psychological: Normal affect, Normal Mood Diagnostic/Tx/Re-eval Chest X-Ray - ED: 1 View, Read by ED Physician, No Acute Disease, Cardiomegaly Laboratory Data 03/26/19 03/26/19 03/26/19 16:55 16:55 16:55 WBC 12.1 H RBC 3.08 L Hgb 7.5 L Hct 25.5 L MCV 82.8 MCH 24.4 L MCHC 29.4 L RDW Std Deviation 49.1 H RDW Coeff of Kelechi 16.4 H Plt Count 327 MPV 10.5 Immature Gran % (Auto) 1.300 H Neut % (Auto) 77.1 H Lymph % (Auto) 12.6 L [place] % (Auto) 7.8 Eos % (Auto) 0.8 Baso % (Auto) 0.4 Absolute Neuts (auto) 9.3 H Absolute Lymphs (auto) 1.53 Nucleated RBC % 0 PT 19.8 H INR 1.7 Sodium 139 Potassium 3.6 Chloride 108 H Carbon Dioxide 23.0 Anion Gap 8 BUN 26 H Creatinine 2.09 H Estim Creat Clear Calc 19.96 Est GFR (MDRD) Af Amer 29 L Est GFR (MDRD) Non-Af 24 L BUN/Creatinine Ratio 12.4 Glucose 137 H Lactic Acid Calcium 8.2 L Total Bilirubin 0.30 AST 4 L ALT 7 L Alkaline Phosphatase 102 Troponin I < 0.015 Total Protein 6.7 Albumin 3.0 L Globulin 3.7 Albumin/Globulin Ratio 0.8 L Crossmatch 03/26/19 03/26/19 16:55 17:00 WBC RBC Hgb Hct MCV MCH MCHC RDW Std Deviation RDW Coeff of Kelechi Plt Count MPV Immature Gran % (Auto) Neut % (Auto) Lymph % (Auto) [place] % (Auto) Eos % (Auto) Baso % (Auto) Absolute Neuts (auto) Absolute Lymphs (auto) Nucleated RBC % PT INR Sodium Potassium Chloride Carbon Dioxide Anion Gap BUN Creatinine Estim Creat Clear Calc Est GFR (MDRD) Af Amer Est GFR (MDRD) Non-Af BUN/Creatinine Ratio Glucose Lactic Acid 2.7 H* Calcium Total Bilirubin AST ALT Alkaline Phosphatase Troponin I Total Protein Albumin Globulin Albumin/Globulin Ratio Crossmatch See Detail - Rhythm Strip Rhythm Strip: Sinus Rhythm Rate: 73 Ectopy: None - EKG Initial EKG Interpretation: Sinus Rhythm, LBBB, - - Normal sinus rhythm the rate of 73 FL interval 178 QRS 126 Left axis deviation Left bundle branch pattern No ST segment changes - Medical Decision Making Patient is evaluated for 1 day of rectal bleeding. She did have a colonoscopy with 3 polyps removed 10 days ago. Patient is anticoagulated on Eliquis with her most recent dose this morning. Rectal exam is consistent with a lower GI bleed. Patient is hemodynamically stable but is feeling lightheaded. She does have an acute anemia of 7.5. Her baseline is between 9 and 10. Patient is ordered 2 units of blood and will be admitted for further hemodynamic monitoring, transfusion and possible repeat endoscopy. Discussed with Dr. Vargas who is agreeable with admission at this time and aware of the patient. Patient has previously Dr. Ceron for vascular surgery. Patient remained hemodynamically stable in the emergency room. She does not have any further episodes of bleeding. Patient does have a mild elevation of her creatinine. She is given a small fluid bolus, 500 cc. Patient's lactate is also mildly elevated. I suspect this could be from acute blood loss. I do not suspect infection as the cause of her lactic acidosis at this time and she only minimally elevated white blood cell count, is afebrile and has no other findings consistent with an acute infection. She is admitted to the general medical floor. Case discussed with Dr. Cisse who is agreeable with admission. ED Disposition - Plan for ED Patient: Disposition: Home or Assisted Living Diagnosis: Acute on chronic anemia, GI bleed Referrals: Nia Uriostegui DO [Primary Care Provider] -
[2019-03-26 17:15] LABS: Absolute Lymphocyte Count 1.53 X10^3/uL (0.83-4.51); Absolute Neutrophil Count 9.3 X10^3/uL (2.0-7.7); Basophil# 0.05 X10^3/uL; Basophil% 0.4 % (0-1); Eosinophils% 0.8 % (0-5); Hematocrit 25.5 % (37-47); Hemoglobin 7.5 g/dL (12.0-15.0); Lymphocyte # 1.53 X10^3/ul (4.0); Lymphocyte % 12.6 % (19-41); Mean Corp Hgb Conc 29.4 g/dL (32-36); Mean Corpuscular Hgb 24.4 pg (27.0-32.0); Mean Corpuscular Volume 82.8 fL (81-99); Mean Platelet Vol. 10.5 fl (6.2-12.0); Monocyte# 0.94 X10^3/uL; Monocyte% 7.8 % (0-10); NRBC Flagged by Analyzer 0 % (0-5); Neutrophil # 9.33 X10^3/uL (2.7-7.7); Neutrophil % 77.1 % (47-70); Platelet Count 327 K/mm3 (150-450); RBC Distribution Width CV 16.4 % (11.6-14.6); RBC Distribution Width SD 49.1 fl (35.1-43.9); Red Blood Count 3.08 M/mm3 (4.2-5.4); White Blood Count 12.1 K/mm3 (4.4-11.0)
[2019-03-26 17:20] LABS: International Normalized Ratio 1.7; Prothrombin Time (Protime)PT. 19.8 SECONDS (11.7-14.9)
[2019-03-26 17:27] LABS: ALB/GLOB Ratio 0.8 RATIO (0.9-2.4); AST(SGOT) 4 U/L (15-37); Alanine Aminotransfer ALT/SGPT 7 U/L (13-56); Alkaline Phosphatase 102 U/L (45-117); Anion Gap 8 (5-15); BUN 26 mg/dL (7-18); BUN/Creat Ratio 12.4 RATIO (10-20); Calcium,Total 8.2 mg/dL (8.5-10.1); Chloride 108 mmol/L (98-107); Creatinine, Serum 2.09 mg/dL (0.55-1.02); EST Glomerular Filtration Rate 24 mL/min (>60); Est Glom Filt Rate - Afr Amer 29 mL/min (>60); Estimated Creatinine Clearance 19.96 ml/min; Globulin 3.7 g/dL (2.2-4.2); Glucose 137 mg/dL (74-106); Potassium 3.6 mmol/L (3.5-5.1); Protein, Total 6.7 g/dL (6.4-8.2); Sodium Level 139 mmol/L (136-145)
--- NOTE | 2019-03-26 17:44 | ED.RN ---
notified Dr. Costello of lactic acid 2.7
[2019-03-26 17:45] LABS: Lactic Acid 2.7 mmol/L (0.4-1.9)
--- NOTE | 2019-03-26 17:46 | ED.RN ---
DR LOVE PAGED FOR DR JOE
--- NOTE | 2019-03-26 17:50 | RAD_ITS ---
STUDY: X-RAY CHEST REASON FOR EXAM: Female, 78 years old. GI BLEED, HX OF CABG, HTN, ASTHMA TECHNIQUE: Portable chest COMPARISON: 08/06/2018 FINDINGS: The lungs are clear and expanded. There is no demonstrated pleural abnormality. There is stable cardiomegaly. Normal mediastinum and emil. Normal visualized pulmonary arteries. Normal visualized aortic arch and descending thoracic aorta. There is mid thoracic spine dextroscoliosis. There is thoracic kyphosis, mid thoracic spine compression deformity. Normal visualized ribs, clavicles, and shoulders. There is no demonstrated abnormality of the visualized soft tissue structures of the upper abdomen. RAD/Chest 1 View (Portable) IMPRESSION: Stable cardiomegaly Stable thoracic dextroscoliosis, kyphosis, old mid thoracic spine compression deformity Electronically Signed: Je Chaudhari, at 18:43 EST Tel , Service support ,
--- NOTE | 2019-03-26 18:44 | HP.PCM_ITS ---
Problem List (1) Lower GI bleed Status: Acute (2) Iron deficiency anemia refractory to iron therapy Status: Chronic (3) Acute on chronic anemia Status: Acute (4) Dyspnea on exertion Status: Acute (5) Atherosclerotic heart disease of [place] coronary artery without angina pectoris Status: Chronic Qualifiers: [place] vs. transplanted heart: [place] heart Qualified Code(s): I25.10 - Atherosclerotic heart disease of [place] coronary artery without angina pectoris (6) H/O coronary artery bypass surgery Status: Chronic Comment: CABG x2 Sequential VILLAGRAN side to side to D2 and end to side to LAD 08-06-04 (7) History of non-ST elevation myocardial infarction (NSTEMI) Status: Resolved Comment: 11/2016, 04/2017 (8) Chronic combined systolic and diastolic CHF (congestive heart failure) Status: Chronic Comment: EF 50% in 2018 (9) Paroxysmal atrial fibrillation Status: Chronic Comment: Status post ablation at [facility] in November 2017; (10) Paroxysmal atrial flutter Status: Chronic (11) Cardiomyopathy in diseases classified elsewhere Status: Chronic (12) Essential (primary) hypertension Status: Chronic (13) Left bundle branch block Status: Chronic (14) Secondary pulmonary arterial hypertension Status: Chronic Comment: PA pressure estimated at 54 on echocardiogram done in September 2017 (15) HLD (hyperlipidemia) Status: Chronic Qualifiers: Hyperlipidemia type: mixed hyperlipidemia Qualified Code(s): E78.2 - Mixed hyperlipidemia (16) GERD (gastroesophageal reflux disease) Status: Chronic (17) Grade II diastolic dysfunction Status: Chronic (18) Colon polyps Status: Chronic Comment: found on a colonoscopy by Dr. Alfonso in February of 2019 (19) Pseudoaneurysm following procedure Status: Resolved Comment: Following ablation (20) Gout Status: Chronic (21) Benign positional vertigo Status: Chronic (22) History of meningioma Status: Resolved (23) Diabetes mellitus type 2 in obese Status: Chronic (24) Acute renal failure superimposed on stage 3 chronic kidney disease Status: Acute History of Present Illness Date of Admission: 03/26/19 Chief Complaint: dizziness, SOB with exertion, rectal bleeding The patient is a 78 year old F with a past medical history of hypertension, diabetes mellitus type 2, coronary artery disease with history of CABG, atrial fibrillation with history of ablation, moderate pulmonary hypertension, asthma, heart failure with preserved ejection fraction, gout, obesity, chronic anticoagulation with Eliquis and history of a meningioma which has been resected who presented to the emergency department at [facility] on 03/26/2019 complaining of 4-5 episodes of bright red blood in her toilet today associated with lightheadedness shortness of breath with exertion. She has recently started seeing Dr. Hancock for iron deficiency anemia not responsive to oral iron as an outpatient. She received her first dose of IV iron this week. She recently saw Dr. Alfonso approximately 10 days ago for a colonoscopy and 3 polyps were removed. She denied any history of peptic ulcer disease and she denies abdominal pain. She does feel as though she has to have a bowel movement frequently. She has no nausea, no vomiting and is not had any hematemesis. Vital signs at presentation to the emergency room were temperature 99 ?F, pulse rate 77, blood pressure 117/60, respiratory rate 16 and she was 97% saturated on room air. White blood cell count was 12.1 with 77% neutrophils. The hemoglobin was low at 7.5 with an MCV of 82.8 and an elevated RDW. Platelet count was normal at 327,000. BUN was 26 and the creatinine was 2.09 up from 1.0 in April 2017. Lactic acid is elevated at 2.7. LFTs are unremarkable. Troponin is less than 0.015. Chest x-ray shows cardiomegaly with no infiltrates, pleural effusions or pulmonary vascular congestion. She is being admitted to the hospital with a dx of severe symptomatic anemia secondary to lower GI bleed in pt on an anticoagulation. Past Medical History Past Medical History (Chronic Problems): Chronic Problems (Last Reviewed 02/09/19 @ 10:27 by Jonel Winchester MD) Iron deficiency anemia refractory to iron therapy (Chronic) GERD (gastroesophageal reflux disease) (Chronic) Grade II diastolic dysfunction (Chronic) Colon polyps (Chronic) found on a colonoscopy by Dr. Alfonso in February of 2019 Gout (Chronic) Benign positional vertigo (Chronic) Diabetes mellitus type 2 in obese (Chronic) Atherosclerotic heart disease of [place] coronary artery without angina pectoris (Chronic) H/O coronary artery bypass surgery (Chronic 08/06/04) CABG x2 Sequential VILLAGRAN side to side to D2 and end to side to LAD 08-06-04 Chronic combined systolic and diastolic CHF (congestive heart failure) (Chronic) EF 50% in 2017 Paroxysmal atrial fibrillation (Chronic) Status post ablation at [facility] in November 2017; Paroxysmal atrial flutter (Chronic) Cardiomyopathy in diseases classified elsewhere (Chronic) Essential (primary) hypertension (Chronic) Left bundle branch block (Chronic) Secondary pulmonary arterial hypertension (Chronic) PA pressure estimated at 54 on echocardiogram done in September 2017 HLD (hyperlipidemia) (Chronic) Medical History: Medical History (Last Reviewed 03/26/19 @ 21:09 by Sherrie Cisse DO) Atherosclerotic heart disease of [place] coronary artery without angina pectoris (Chronic) I25.10 History of non-ST elevation myocardial infarction (NSTEMI) (Resolved) Onset Date: 04/2017 I25.2 11/2016, 04/2017 Chronic combined systolic and diastolic CHF (congestive heart failure) (Chronic) I50.42 EF 50% in 2018 Paroxysmal atrial fibrillation (Chronic) I48.0 Status post ablation at [facility] in November 2017; Paroxysmal atrial flutter (Chronic) I48.92 Cardiomyopathy in diseases classified elsewhere (Chronic) I43 Essential (primary) hypertension (Chronic) I10 Left bundle branch block (Chronic) I44.7 Secondary pulmonary arterial hypertension (Chronic) I27.21 PA pressure estimated at 54 on echocardiogram done in September 2017 HLD (hyperlipidemia) (Chronic) E78.5 Asthma J45.909 Benign paroxysmal positional vertigo H81.10 Bruit (arterial) R09.89 Gout M10.9 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 She still has a AV fistula s/p RFA 11/2017 Meningioma D32.9 2009 Non-ST elevation myocardial infarction (NSTEMI) due to mismatch of myocardial oxygen supply and demand I21.4 Obesity E66.9 Other cerebral infarction I63.8 Partial symptomatic epilepsy with complex partial seizures, intractable, with status epilepticus G40.[address] Raoul Gonzales [facility], [facility] Type 2 diabetes mellitus E11.9 New onset atrial flutter Onset Date: 09/29/17 I48.92 Pseudoaneurysm following procedure I97.89, I72.9 Atrial enlargement, left (Inactive) I51.7 Non-rheumatic tricuspid valve insufficiency (Inactive) I36.1 Allergies lisinopril Adverse Reaction (Verified 03/26/19 15:46) cough Home Medications: Ambulatory Orders Medication Instructions Recorded Fluticasone/Salmeterol [Advair 1 puff INHALATION BID 08/24/17 250/50 Mcg Diskus] Montelukast [Singulair] 10 mg PO DAILY 08/24/17 Nitroglycerin (INPATIENT USE) 0.4 mg SUBLINGUAL Q5M PRN 08/24/17 [Nitrostat] albuterol sulfate 90 mcg/actuation 1 puff INHALATION Q4H PRN 04/09/18 aerosol inhaler amlodipine 5 mg tablet 5 mg PO DAILY #90 tab 04/09/18 linagliptin 5 mg tablet 5 mg PO DAILY 04/09/18 metformin 500 mg tablet,extended 1,000 mg PO BID tab 05/14/18 release 24 hr atorvastatin 40 mg tablet 40 mg PO QHS #90 tab 05/19/18 gabapentin 100 mg capsule 100 mg PO DAILY cap 08/06/18 allopurinol 300 mg tablet 300 mg PO DAILY tab 02/09/19 losartan 100 mg tablet 100 mg PO DAILY tab 02/09/19 metoprolol tartrate 25 mg tablet 12.5 mg PO QHS tab 02/09/19 Apixaban [Eliquis] 5 mg PO BID 03/26/19 Cholecalciferol (VIT D3) [Vitamin 1,000 unit PO DAILY 03/26/19 D] Doxycycline 100 mg PO BID 03/26/19 Furosemide 80 mg PO DAILY 03/26/19 Furosemide [Lasix] 40 mg PO DAILY 03/26/19 Guaifenesin/Codeine Phosphate 5 - 10 ml PO Q4H PRN PRN 03/26/19 [Guaifen-Codeine 100-10 mg/5 ml] Insulin Detemir [Levemir FlexPen] 20 units SQ DAILY 03/26/19 Lansoprazole 30 mg PO DAILY 03/26/19 Methscopolamine [place] 5 mg PO BID 03/26/19 Metoprolol Tartrate 25 mg PO DAILY 03/26/19 Surgical History: Surgical History (Last Reviewed 03/26/19 @ 21:09 by Sherrie Cisse DO) H/O coronary artery bypass surgery (Chronic) Onset Date: 08/06/04 Z95.1 CABG x2 Sequential VILLAGRAN side to side to D2 and end to side to LAD 08-06-04 H/O craniotomy Onset Date: [id number] for benign meningioma brain tumor History of ankle surgery Z98. 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 Lives: Spouse/ Significant Other Smoking Status: Never smoker Tobacco Use: Non-smoker Alcohol: None Drugs: None - *Family History Maternal Family History: Family History (Last Reviewed 03/26/19 @ 21:09 by Sherrie Cisse DO) Father CAD (coronary artery disease) Hypertension Cancer Mother CAD (coronary artery disease) Hypertension Diabetes Brother CAD (coronary artery disease) Sister CAD (coronary artery disease) Myocardial infarction History Items: No pertinent history Paternal Family History: Family History (Last Reviewed 03/26/19 @ 21:09 by Sherrie Cisse DO) Father CAD (coronary artery disease) Hypertension Cancer Mother CAD (coronary artery disease) Hypertension Diabetes Brother CAD (coronary artery disease) Sister CAD (coronary artery disease) Myocardial infarction History Items: No pertinent history Review of Systems Constitutional: Reports: Weakness. Denies: Chills, Fever, Weight Change HEENT: Denies: Head Aches, Sinus Congestion, Sinus Drainage Cardiovascular: Reports: Light Headedness. Denies: Chest Pain, Orthopnea, Palpitations, Syncope Respiratory: Reports: Shortness of breath upon exertion. Denies: Cough, Hemoptysis, Shortness of breath at rest, Sputum production Gastrointestinal: Reports: Diarrhea, Hematochezia. Denies: Abdominal Pain, Dyspepsia, Hematemesis, Nausea, Melena, Vomiting Genitourinary: Denies: Dysuria Musculoskeletal: Denies: Joint Pain, Joint Tenderness Skin: Denies: Rash, Wounds Neurological: Denies: Confusion, Focal weakness, Numbness, Tingling, Tremor, Seizures Psychiatric: Denies: Anxiety, Depression, Homicidal Ideations, Suicidal Ideations Hematologic/ Lymphatic: Denies: Easy Bruising, Easy Bleeding, Hx of blood clot VTE Information - Inpt Only VTE Present on Admission: No VTE Mechan Device Prophylaxis: SCD's, Knee High KECIA Hose Patient Problems: Active and Suspected Problems (Last Reviewed 02/09/19 @ 10:27 by Jonel Winchester MD) Acute on chronic anemia (Acute) Lower GI bleed (Acute) Acute renal failure superimposed on stage 3 chronic kidney disease (Acute) - Physical Exam Vitals/I&O's: Vital Signs Temp Pulse Resp BP Pulse Ox 99.0 F 76 15 115/53 L 98 03/26/19 15:46 03/26/19 17:06 03/26/19 17:06 03/26/19 17:06 03/26/19 17:06 Oxygen Delivery Method Room Air Weight: 184 lb 15.485 oz Body Mass Index (BMI) 30.7 Intake and Output for Last 24 Hours 03/24/19 03/25/19 03/26/19 23:59 23:59 23:59 Intake Total 500 / 500 Balance 500 / 500 General: Alert, Oriented x3, Cooperative, No apparent distress, Well developed, Well nourished, - - pale HEENT: Atraumatic, PERRLA, EOMI, Normocephalic Oral: No Gingival or Mucosal Lesions/ Ulcerations, Dry Mucosa Neck: Supple, No JVD, Negative Carotid Bruits, No Nodes, No Nuchal Rigidity, Trachea Midline Lungs: Clear to auscultation, No rhonchi, No wheeze, No rales, Diminished, - - Not tachypneic, no conversational dyspnea, no accessory muscle use Cardiovascular: Regular rate, Regular Rhythm, Normal S1, Normal S2, Murmur - there is a systolic MM at the LVOT, No rub noted, No Gallop Abdomen: Bowel Sounds Present - mildy hyperactive, Soft, Non Tender, Non- Distended, - - No guarding with palpation Extremities: No clubbing, No cyanosis, No edema, No Calf Tenderness, Diminished Peripheral Pulses, - - The nailbeds are pale with poor capillary refill Skin: No rashes, No breakdown Musculoskeletal: No Tenderness to Palpation of Joints or Extremities, No Muscle Wasting, Arthritic Changes Neurological: Cranial nerves II-XII grossly intact, Neuro grossly intact Psych/Mental Status: Normal Affect, Appropriate Microbiology Past 72 Hours 03/26/19 16:50 Stool Stool Occult Blood ([place]) - Final Occult Blood Positive Laboratory Results 03/26/19 16:55: WBC 12.1 H, RBC 3.08 L, Hgb 7.5 L, Hct 25.5 L, MCV 82.8, MCH 24.4 L, MCHC 29.4 L, RDW Std Deviation 49.1 H, RDW Coeff of Kelechi 16.4 H, Plt Count 327, MPV 10.5, Immature Gran % (Auto) 1.300 H, Neut % (Auto) 77.1 H, Lymph % (Auto) 12.6 L, [place] % (Auto) 7.8, Eos % (Auto) 0.8, Baso % (Auto) 0.4, Absolute Neuts (auto) 9.3 H, Absolute Lymphs (auto) 1.53, Nucleated RBC % 0 03/26/19 16:55: PT 19.8 H, INR 1.7 03/26/19 16:55: Sodium 139, Potassium 3.6, Chloride 108 H, Carbon Dioxide 23.0, Anion Gap 8, BUN 26 H, Creatinine 2.09 H, Estim Creat Clear Calc 19.96, Est GFR (MDRD) Af Amer 29 L, Est GFR (MDRD) Non-Af 24 L, BUN/Creatinine Ratio 12.4, Glucose 137 H, Calcium 8.2 L, Total Bilirubin 0.30, AST 4 L, ALT 7 L, Alkaline Phosphatase 102, Troponin I < 0.015, Total Protein 6.7, Albumin 3.0 L, Globulin 3.7, Albumin/Globulin Ratio 0.8 L 03/26/19 16:55: Lactic Acid 2.7 H* 03/26/19 16:55: Blood Type O POSITIVE, Antibody Screen NEGATIVE 03/26/19 17:00: Crossmatch See Detail Assessment/Plan All Active Problems (Last Reviewed 02/09/19 @ 10:27 by Jonel Winchester MD) Acute on chronic anemia (Acute) Lower GI bleed (Acute) Acute renal failure superimposed on stage 3 chronic kidney disease (Acute) Dyspnea on exertion (Acute) History of non-ST elevation myocardial infarction (NSTEMI) (Resolved 04/2017) History of meningioma (Resolved) Pseudoaneurysm following procedure (Resolved) Impressions 1. Lower GI bleed in a patient with a recent colonoscopy with extraction of 3 polyps on Eliquis. Bleeding is bright red blood this is painless. she has had no further BM's since coming to the ED. 2. Chronic iron deficiency anemia with acute on chronic anemia secondary to blood loss. Treated by Dr. John Cr for iron deficiency. She received her first dose of IV iron this week and she tolerated this well. 2 units of packed red blood cells will be transfused tonight. 3. Acute renal failure on chronic renal failure stage III - more likely than not secondary to diarrhea and severe anemia with poor perfusion. IV fluids have been ordered. 4. Chronic anticoagulation with Eliquis-on hold. 5. History of cardiomyopathy with a 50% ejection fraction. 6. History of atrial fibrillation with ablation-remains on chronic anticoagulation 7. Coronary artery disease with history of CABG 8. Hypertension 9. History of meningioma-status post resection 10. Lactic acidosis-secondary to poor perfusion related to severe anemia Transfuse 2 units of packed red blood cells. Transfuse as needed to keep the hemoglobin above 8. H&H every 6 hours and CBC in the a.m. Lasix 40 mg IV between the units of blood Hold daily Lasix Clear liquids only Consult Dr. Alicia Higgins Eliquregan Code Visit Inpatient E&M: 92716 Init Hosp L3
[2019-03-26 20:04] LABS: Magnesium 1.1 mg/dL (1.6-2.6)
[2019-03-26 20:40] LABS: Hemoglobin A1c 7.5 % (4.2-6.3)
[2019-03-26] MEDS: Budesonide Respules 0.5 MG/2 ML AMPUL.NEB. INHALATION (20:47)
[2019-03-26] MEDS: Albuterol 2.5 MG/3 ML VIAL.NEB. INHALATION (20:47)
[2019-03-26 21:00] LABS: Reflex Lactate? Y
[2019-03-26] MEDS: Furosemide 40 MG/4 ML Vial IV (22:00)
[2019-03-26] MEDS: Doxycycline 100 MG CAPSULE PO (22:01)
[2019-03-26] MEDS: Atorvastatin Calcium 40 MG Tablet PO (22:01)
[2019-03-26] MEDS: Metoprolol Tartrate 25 MG Tablet 12.5 MG PO (22:02)
[2019-03-26 22:04] LABS: Lactic Acid 1.3 mmol/L (0.4-1.9)
[2019-03-27] VITALS (17 sets, daily range): BP systolic 109–138; BP diastolic 53–63; PULSE 70–92; RESP 18–22; TEMP 36.6–37.1; O2SAT 92–97
[2019-03-27 01:30] LABS: Bedside Glucose 126 mg/dL (70-110)
[2019-03-27 03:45] LABS: Hematocrit 26.1 % (37-47); Hemoglobin 7.9 g/dL (12.0-15.0)
[2019-03-27] MEDS: Magnesium Sulfate 4gm/100mL 4 GM/100 ML IV.SOLN. IV (05:33)
[2019-03-27] MEDS: Budesonide Respules 0.5 MG/2 ML AMPUL.NEB. INHALATION ×2 (06:47→19:52)
[2019-03-27] MEDS: Albuterol 2.5 MG/3 ML VIAL.NEB. INHALATION ×3 (06:47→19:52)
[2019-03-27 06:56] LABS: Bedside Glucose 129 mg/dL (70-110)
[2019-03-27 07:23] LABS: Hematocrit 27.3 % (37-47); Hemoglobin 8.4 g/dL (12.0-15.0); Mean Corp Hgb Conc 30.8 g/dL (32-36); Mean Corpuscular Hgb 25.4 pg (27.0-32.0); Mean Corpuscular Volume 82.5 fL (81-99); Mean Platelet Vol. 10.6 fl (6.2-12.0); Platelet Count 300 K/mm3 (150-450); RBC Distribution Width CV 16.1 % (11.6-14.6); RBC Distribution Width SD 48.3 fl (35.1-43.9); Red Blood Count 3.31 M/mm3 (4.2-5.4); White Blood Count 11.7 K/mm3 (4.4-11.0)
[2019-03-27 08:19] LABS: Anion Gap 12 (5-15); BUN 29 mg/dL (7-18); BUN/Creat Ratio 16.2 RATIO (10-20); Calcium,Total 8.3 mg/dL (8.5-10.1); Chloride 105 mmol/L (98-107); Creatinine, Serum 1.79 mg/dL (0.55-1.02); EST Glomerular Filtration Rate 29 mL/min (>60); Est Glom Filt Rate - Afr Amer 35 mL/min (>60); Estimated Creatinine Clearance 23.31 ml/min; Glucose 118 mg/dL (74-106); Magnesium 1.2 mg/dL (1.6-2.6); Phosphorus 4.1 mg/dL (2.5-4.9); Potassium 3.4 mmol/L (3.5-5.1); Sodium Level 139 mmol/L (136-145)
[2019-03-27] MEDS: Metoprolol Tartrate 25 MG Tablet PO (09:30)
[2019-03-27] MEDS: Gabapentin 100 MG Capsule PO (09:30)
[2019-03-27] MEDS: Allopurinol 300 MG Tablet PO (09:30)
[2019-03-27] MEDS: Losartan Potassium 100 MG Tablet PO (09:30)
[2019-03-27] MEDS: Montelukast 10 MG Tablet PO (09:30)
[2019-03-27] MEDS: amLODIPine 5 MG Tablet PO (09:30)
[2019-03-27] MEDS: Doxycycline 100 MG CAPSULE PO ×2 (09:30→21:06)
--- NOTE | 2019-03-27 09:34 | PCM.CONS.GEN ---
Reason for Consult Date of Consultation: 03/27/19 History of Present Illness: The patient is a 78 year old F presented to the ER due to bright red blood per rectum. Patient states that started yesterday. Patient did have a colonoscopy by Dr. Monteiro on March 16 where she had 3 polyps removed-- patient is unsure the exact sites this was done at the outpatient center. Patient held her Eliquis until that following Friday. Patient did talk with Dr. Alfonso on Friday told her to hold the nighttime dose of Eliquis. Patient was on Eliquis for A. fib patient did have an ablation in November 2017 at the [facility], which was complicated by a pseudoaneurysm did require a thrombin injection and patient was followed by Dr. Ceron. Patient had 4-5 bowel movements with the water turning bright red in the toilet denies any clots. Patient states last night she did have a small bowel movement only a small amounts of flecks of blood. Patient states that yesterday her abdomen felt uncomfortable and in the urgency of having to use the restroom however denies any real pain. Patient denies any current pain. Patient's hemoglobin on admit was 7.5 patient did get units of packed red blood cells. Currently her hemoglobin is 8.4. Patient's normal hemoglobin has been in the mid nines per the patient. Past Medical History Past Medical History (Chronic Problems): Chronic Problems (Last Reviewed 03/26/19 @ 21:09 by Sherrie Cisse DO) Iron deficiency anemia refractory to iron therapy (Chronic) GERD (gastroesophageal reflux disease) (Chronic) Grade II diastolic dysfunction (Chronic) Colon polyps (Chronic) found on a colonoscopy by Dr. Alfonso in February of 2019 Gout (Chronic) Benign positional vertigo (Chronic) Diabetes mellitus type 2 in obese (Chronic) Atherosclerotic heart disease of [place] coronary artery without angina pectoris (Chronic) H/O coronary artery bypass surgery (Chronic 08/06/04) CABG x2 Sequential VILLAGRAN side to side to D2 and end to side to LAD 08-06-04 Chronic combined systolic and diastolic CHF (congestive heart failure) (Chronic) EF 50% in 2017 Paroxysmal atrial fibrillation (Chronic) Status post ablation at [facility] in November 2017; Paroxysmal atrial flutter (Chronic) Cardiomyopathy in diseases classified elsewhere (Chronic) Essential (primary) hypertension (Chronic) Left bundle branch block (Chronic) Secondary pulmonary arterial hypertension (Chronic) PA pressure estimated at 54 on echocardiogram done in September 2017 HLD (hyperlipidemia) (Chronic) Medical History: Medical History (Last Reviewed 03/26/19 @ 21:09 by Sherrie Cisse DO) Atherosclerotic heart disease of [place] coronary artery without angina pectoris (Chronic) I25.10 History of non-ST elevation myocardial infarction (NSTEMI) (Resolved) Onset Date: 04/2017 I25.2 11/2016, 04/2017 Chronic combined systolic and diastolic CHF (congestive heart failure) (Chronic) I50.42 EF 50% in 2018 Paroxysmal atrial fibrillation (Chronic) I48.0 Status post ablation at [facility] in November 2017; Paroxysmal atrial flutter (Chronic) I48.92 Cardiomyopathy in diseases classified elsewhere (Chronic) I43 Essential (primary) hypertension (Chronic) I10 Left bundle branch block (Chronic) I44.7 Secondary pulmonary arterial hypertension (Chronic) I27.21 PA pressure estimated at 54 on echocardiogram done in September 2017 HLD (hyperlipidemia) (Chronic) E78.5 Asthma J45.909 Benign paroxysmal positional vertigo H81.10 Bruit (arterial) R09.89 Gout M10.9 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 She still has a AV fistula s/p RFA 11/2017 Meningioma D32.9 2009 Non-ST elevation myocardial infarction (NSTEMI) due to mismatch of myocardial oxygen supply and demand I21.4 Obesity E66.9 Other cerebral infarction I63.8 Partial symptomatic epilepsy with complex partial seizures, intractable, with status epilepticus G40.[address] [facility] Type 2 diabetes mellitus E11.9 New onset atrial flutter Onset Date: 09/29/17 I48.92 Pseudoaneurysm following procedure I97.89, I72.9 Atrial enlargement, left (Inactive) I51.7 Non-rheumatic tricuspid valve insufficiency (Inactive) I36.1 Allergies lisinopril Adverse Reaction (Verified 03/26/19 15:46) cough Home Medications: Ambulatory Orders Medication Instructions Recorded Fluticasone/Salmeterol [Advair 1 puff INHALATION BID 08/24/17 250/50 Mcg Diskus] Montelukast [Singulair] 10 mg PO DAILY 08/24/17 Nitroglycerin (INPATIENT USE) 0.4 mg SUBLINGUAL Q5M PRN 08/24/17 [Nitrostat] albuterol sulfate 90 mcg/actuation 1 puff INHALATION Q4H PRN 04/09/18 aerosol inhaler amlodipine 5 mg tablet 5 mg PO DAILY #90 tab 04/09/18 linagliptin 5 mg tablet 5 mg PO DAILY 04/09/18 metformin 500 mg tablet,extended 1,000 mg PO BID tab 05/14/18 release 24 hr atorvastatin 40 mg tablet 40 mg PO QHS #90 tab 05/19/18 gabapentin 100 mg capsule 100 mg PO DAILY cap 08/06/18 allopurinol 300 mg tablet 300 mg PO DAILY tab 02/09/19 losartan 100 mg tablet 100 mg PO DAILY tab 02/09/19 metoprolol tartrate 25 mg tablet 12.5 mg PO QHS tab 02/09/19 Apixaban [Eliquis] 5 mg PO BID 03/26/19 Cholecalciferol (VIT D3) [Vitamin 1,000 unit PO DAILY 03/26/19 D] Doxycycline 100 mg PO BID 03/26/19 Furosemide 80 mg PO DAILY 03/26/19 Furosemide [Lasix] 40 mg PO DAILY 03/26/19 Guaifenesin/Codeine Phosphate 5 - 10 ml PO Q4H PRN PRN 03/26/19 [Guaifen-Codeine 100-10 mg/5 ml] Insulin Detemir [Levemir FlexPen] 20 units SQ DAILY 03/26/19 Lansoprazole 30 mg PO DAILY 03/26/19 Methscopolamine Gibson 5 mg PO BID 03/26/19 Metoprolol Tartrate 25 mg PO DAILY 03/26/19 Surgical History: Surgical History (Last Reviewed 03/26/19 @ 21:09 by Sherrie Cisse DO) H/O coronary artery bypass surgery (Chronic) Onset Date: 08/06/04 Z95.1 CABG x2 Sequential VILLAGRAN side to side to D2 and end to side to LAD 08-06-04 H/O craniotomy Onset Date: ~2008 Z98.2008 for benign meningioma brain tumor History of ankle surgery Z98.890 History of cardioversion Onset Date: 09/29/17 Z98.890 AFib 04/2017, Atrial Flutter 09/2017 in ER History of colonoscopy Z98.890 History of hysterectomy Z90.710 History of left heart catheterization (LHC) Onset Date: 11/25/16 Z98.890 LHC: 08/01/2004; 10/15/2011 History of radiofrequency ablation procedure for cardiac arrhythmia Onset Date: 12/04/17 Z98.890 RFA-Atrial Fib and atrial flutter @ [facility] History of tonsillectomy Z90.89 Surgical History: - - CABG, meningioma resection, colonoscopy with polyp extraction, hysterectomy Psychiatric History: No pertinent psych hx [employer] History: No pertinent [employer] history Lives: Spouse/ Significant Other Smoking Status: Never smoker Tobacco Use: Non-smoker Alcohol: None Drugs: None - *Family History Maternal Family History: Family History (Last Reviewed 03/26/19 @ 21:09 by Sherrie Cisse DO) Father CAD (coronary artery disease) Hypertension Cancer Mother CAD (coronary artery disease) Hypertension Diabetes Brother CAD (coronary artery disease) Sister CAD (coronary artery disease) Myocardial infarction History Items: No pertinent history Paternal Family History: Family History (Last Reviewed 03/26/19 @ 21:09 by Sherrie Cisse DO) Father CAD (coronary artery disease) Hypertension Cancer Mother CAD (coronary artery disease) Hypertension Diabetes Brother CAD (coronary artery disease) Sister CAD (coronary artery disease) Myocardial infarction History Items: No pertinent history Review of Systems Constitutional: Denies: Anorexia, Fever Eyes: Denies: Blurred vision HEENT: Denies: Difficulty Swallowing Cardiovascular: Denies: Chest Pain Respiratory: Denies: Shortness of Breath Gastrointestinal: Reports: Hematochezia. Denies: Abdominal Pain, Constipation, Nausea, Melena, Vomiting Genitourinary: Denies: Dysuria Skin: Denies: Rash Neurological: Denies: Change in Speech Psychiatric: Denies: Depression Hematologic/ Lymphatic: Reports: Anemia, Easy Bleeding Patient Problems: Active and Suspected Problems (Last Reviewed 03/26/19 @ 21:09 by Sherrie Cisse DO) Acute on chronic anemia (Acute) Lower GI bleed (Acute) Acute renal failure superimposed on stage 3 chronic kidney disease (Acute) - Physical Exam Vitals/I&O's: Vital Signs Temp Pulse Resp BP Pulse Ox 98 F 83 18 131/62 H 92 03/27/19 09:11 03/27/19 09:30 03/27/19 09:11 03/27/19 09:11 03/27/19 09:11 Oxygen Delivery Method Room Air Weight: 186 lb 11.704 oz Body Mass Index (BMI) 30.8 Orthostatic Vital Signs Start: 03/27/19 05:38 Freq: q24h Status: Active Protocol: Activity Type Activity Date Activity User E-Sign Co-Sign Detail Recorded Client Recorded Date Recorded By Document 03/27/19 05:38 EV [id number] 03/27/19 05:40 EV 03/27/19 05:38 Orthostatic Vitals Standing -Blood Pressure (90/60-120/80) 116/60 -Extremity Use Right Arm -Pulse Rate (60-100) 91 Sitting -Blood Pressure (90/60-120/80) 124/54 H -Extremity Use Right Arm -Pulse Rate (60-100) 81 Lying -Blood Pressure (90/60-120/80) 138/63 H -Extremity Use Right Arm -Pulse Rate (60-100) 84 Intake and Output for Last 24 Hours 03/25/19 03/26/19 03/27/19 23:59 23:59 23:59 Intake Total 900 / 1300 1010 / 1010 Output Total 450 / 450 Balance 900 / 1250 560 / 560 General: Alert, Oriented x3, Cooperative, No apparent distress HEENT: Atraumatic Lungs: Normal air movement Cardiovascular: Regular rate Abdomen: Soft, Non Tender, Non-Distended, - - STEWART: Normal sphincter tone no obvious hemorrhoids on exam, very small amount of maroon stool on glove, no masses appreciated. Extremities: No clubbing, No cyanosis, No edema Neurological: Cranial nerves II-XII grossly intact Psych/Mental Status: Normal Affect Microbiology Past 72 Hours 03/26/19 16:50 Stool Stool Occult Blood ([place]) - Final Occult Blood Positive Laboratory Results 03/26/19 03:00: Hgb Cancelled, Hct Cancelled 03/26/19 16:55: WBC 12.1 H, RBC 3.08 L, Hgb 7.5 L, Hct 25.5 L, MCV 82.8, MCH 24.4 L, MCHC 29.4 L, RDW Std Deviation 49.1 H, RDW Coeff of Kelechi 16.4 H, Plt Count 327, MPV 10.5, Immature Gran % (Auto) 1.300 H, Neut % (Auto) 77.1 H, Lymph % (Auto) 12.6 L, [place] % (Auto) 7.8, Eos % (Auto) 0.8, Baso % (Auto) 0.4, Absolute Neuts (auto) 9.3 H, Absolute Lymphs (auto) 1.53, Nucleated RBC % 0 03/26/19 16:55: PT 19.8 H, INR 1.7 03/26/19 16:55: Sodium 139, Potassium 3.6, Chloride 108 H, Carbon Dioxide 23.0, Anion Gap 8, BUN 26 H, Creatinine 2.09 H, Estim Creat Clear Calc 19.96, Est GFR (MDRD) Af Amer 29 L, Est GFR (MDRD) Non-Af 24 L, BUN/Creatinine Ratio 12.4, Glucose 137 H, Calcium 8.2 L, Total Bilirubin 0.30, AST 4 L, ALT 7 L, Alkaline Phosphatase 102, Troponin I < 0.015, Total Protein 6.7, Albumin 3.0 L, Globulin 3.7, Albumin/Globulin Ratio 0.8 L 03/26/19 16:55: Lactic Acid 2.7 H* 03/26/19 16:55: Blood Type O POSITIVE, Antibody Screen NEGATIVE 03/26/19 16:55: Hemoglobin A1c 7.5 H 03/26/19 16:55: Magnesium 1.1 L 03/26/19 17:00: Crossmatch See Detail 03/26/19 21:35: Lactic Acid 1.3 03/26/19 22:34: POC Glucose 126 H 03/27/19 03:00: Hgb 7.9 L, Hct 26.1 L 03/27/19 05:36: WBC 11.7 H, RBC 3.31 L, Hgb 8.4 L, Hct 27.3 L, MCV 82.5, MCH 25.4 L, MCHC 30.8 L, RDW Std Deviation 48.3 H, RDW Coeff of Kelechi 16.1 H, Plt Count 300, MPV 10.6 03/27/19 05:36: Sodium 139, Potassium 3.4 L, Chloride 105, Carbon Dioxide 22.0, Anion Gap 12, BUN 29 H, Creatinine 1.79 H, Estim Creat Clear Calc 23.31, Est GFR (MDRD) Af Amer 35 L, Est GFR (MDRD) Non-Af 29 L, BUN/Creatinine Ratio 16.2, Glucose 118 H, Calcium 8.3 L, Phosphorus 4.1, Magnesium 1.2 L 03/27/19 05:36: Phosphorus Cancelled 03/27/19 06:48: POC Glucose 129 H Current Medications Acetaminophen (Tylenol) 650 mg PO Q6H PRN PRN PRN Reason: Pain Score 1-10/Temp > 100.7 F Al Hydroxide/Mg Hydroxide (Mylanta Ii) 30 ml PO Q6H PRN PRN PRN Reason: Gastric Burning Albuterol Sulfate (Ventolin Aerosols) 2.5 mg INHALATION Q4H PRN PRN Reason: Wheezing Albuterol Sulfate (Ventolin Aerosols) 2.5 mg INHALATION Q6HWA.RT [facility] Last Admin: 03/27/19 06:47 Dose: 2.5 mg Documented by: Allopurinol (Zyloprim) 300 mg PO DAILY [facility] Last Admin: 03/27/19 09:30 Dose: 300 mg Documented by: Amlodipine Besylate (Norvasc) 5 mg PO DAILY [facility] Last Admin: 03/27/19 09:30 Dose: 5 mg Documented by: Atorvastatin Calcium (Lipitor) 40 mg PO QHS [facility] Last Admin: 03/26/19 22:01 Dose: 40 mg Documented by: Budesonide (Pulmicort Aerosol) 0.5 mg INHALATION Q12H.RT [facility] Last Admin: 03/27/19 06:47 Dose: 0.5 mg Documented by: Cholecalciferol (Vitamin D) 1,000 unit PO DAILY [facility] Last Admin: 03/27/19 09:30 Dose: 1,000 unit Documented by: Doxycycline Monohydrate (Doxycycline) 100 mg PO BID [facility] Last Admin: 03/27/19 09:30 Dose: 100 mg Documented by: Gabapentin (Neurontin) 100 mg PO DAILY@0800 [facility] Last Admin: 03/27/19 09:30 Dose: 100 mg Documented by: Glucagon () 1 mg IM .X1 PRN PRN Reason: Hypoglycemia Guaifenesin (Robitussin) 20 ml PO Q4H PRN PRN PRN Reason: COUGH Pantoprazole Sodium 40 mg/ (Sodium Chloride) 110 mls @ 330 mls/hr IV Q24 [facility] Last Admin: 03/27/19 09:30 Dose: 330 mls/hr Documented by: Dextrose (Dextrose 10%-Water) 250 mls @ 999 mls/hr IV .Q16M PRN; Protocol PRN Reason: HYPOGLYCEMIA Insulin Human Lispro (Humalog Kwikpen (Bkc)) 0 unit SC ACHS [facility]; Protocol Last Admin: 03/27/19 07:25 Dose: Not Given Documented by: Losartan Potassium (Cozaar) 100 mg PO DAILY [facility] Last Admin: 03/27/19 09:30 Dose: 100 mg Documented by: Melatonin (Melatonin) 3 mg PO QHS PRN PRN PRN Reason: INSOMNIA Metoprolol Tartrate (Lopressor (Beta Eddie)) 25 mg PO DAILY [facility] Last Admin: 03/27/19 09:30 Dose: 25 mg Documented by: Metoprolol Tartrate (Lopressor (Beta Eddie)) 12.5 mg PO QHS [facility] Last Admin: 03/26/19 22:02 Dose: 12.5 mg Documented by: Montelukast Sodium (Singulair) 10 mg PO DAILY [facility] Last Admin: 03/27/19 09:30 Dose: 10 mg Documented by: Nitroglycerin (Nitrostat) 0.4 mg SUBLINGUAL Q5M PRN PRN Reason: CARDIAC/CHEST PAIN Ondansetron HCl (Zofran) 4 mg IV Q8H PRN PRN PRN Reason: NAUSEA/VOMITING Prochlorperazine Edisylate (Compazine Iv) 5 mg IV Q4H PRN PRN PRN Reason: Breakthrough nausea/vomiting Assessment/Plan All Active Problems (Last Reviewed 03/26/19 @ 21:09 by Sherrie Cisse DO) Acute on chronic anemia (Acute) Lower GI bleed (Acute) Acute renal failure superimposed on stage 3 chronic kidney disease (Acute) Dyspnea on exertion (Acute) History of non-ST elevation myocardial infarction (NSTEMI) (Resolved 04/2017) History of meningioma (Resolved) Pseudoaneurysm following procedure (Resolved) 78-year-old female with bright red blood per rectum status post polypectomy x3 on 03/16 on Eliquis for history of A. fib status post ablation 2017. 1. Did discuss possibility of a colonoscopy with the patient she would prefer not to undergo colonoscopy unless necessary she states her last bowel movement had less blood in it than previous. Patient's last dose of Eliquis was yesterday morning. Did discuss with patient that if she does have increased bleeding or the hemoglobin continues to drop would again be talking to her about doing a colonoscopy. Currently patient's vital signs are stable patient's hemoglobin went from 7 5-8.4 little lower than expected however patient may have been lower in hemoglobin on admit than the 7.5 initially. We will continue to monitor patient's hemoglobin okay to advance patient to a full diet in case we would need to do scope in the future. Patient was agreeable with plan had no further questions this time. Ramandeep Vargas M.D. Pager: [phone] [facility] [address] [place] [address], [facility], [address] [place] [address] Office: [phone] Code Visit Inpatient E&M: 70179 Init Hosp L2
--- NOTE | 2019-03-27 10:16 | PCM.PN.HOSP ---
Patient Problems: Active and Suspected Problems (Last Reviewed 03/26/19 @ 21:09 by Sherrie Cisse DO) Acute on chronic anemia (Acute) Lower GI bleed (Acute) Acute renal failure superimposed on stage 3 chronic kidney disease (Acute) Subjective: Patient was admitted with a complaint of rectal bleeding. She had a colonoscopy on outpatient basis ~ 1 week ago, with removal of 3 polyps and has been on eliquis. She is being managed for lower GI bleed. patient seen and examined this morning. She had only scanty rectal bleeding last night. He denies any palpitations or dizziness, chest pain, nausea vomiting or diarrhea. Of note, patient states she is also been managed for anemia and was following up with Dr. Hancock for iron infusions. She has received 1 iron infusion so far. Labs and vitals reviewed. She received 2 units of packed red blood cells since admission and hemoglobin is up to 8.4 today. It was 7.9 on admission. General surgery is on board. Vitals/I&O's: Vital Signs Temp Pulse Resp BP Pulse Ox 98 F 83 18 131/62 H 92 03/27/19 09:11 03/27/19 09:30 03/27/19 09:11 03/27/19 09:11 03/27/19 09:11 Oxygen Delivery Method Room Air Weight: 186 lb 11.704 oz Body Mass Index (BMI) 30.8 Orthostatic Vital Signs Start: 03/27/19 05:38 Freq: q24h Status: Active Protocol: Activity Type Activity Date Activity User E-Sign Co-Sign Detail Recorded Client Recorded Date Recorded By Document 03/27/19 05:38 EV [id number] 03/27/19 05:40 EV 03/27/19 05:38 Orthostatic Vitals Standing -Blood Pressure (90/60-120/80) 116/60 -Extremity Use Right Arm -Pulse Rate (60-100) 91 Sitting -Blood Pressure (90/60-120/80) 124/54 H -Extremity Use Right Arm -Pulse Rate (60-100) 81 Lying -Blood Pressure (90/60-120/80) 138/63 H -Extremity Use Right Arm -Pulse Rate (60-100) 84 Intake and Output for Last 24 Hours 03/25/19 03/26/19 03/27/19 23:59 23:59 23:59 Intake Total 900 / 1300 1370 / 1370 Output Total 650 / 650 Balance 900 / 1250 720 / 720 General: Alert, Oriented x3, Cooperative, No apparent distress HEENT: Atraumatic, PERRLA, EOMI, Normocephalic Oral: Dry Mucosa Neck: Supple, No JVD, Negative Carotid Bruits Lungs: Clear to auscultation, Normal air movement, No rhonchi, No wheeze, No rales Cardiovascular: Regular rate, Regular Rhythm, Normal S1, Normal S2, No murmurs Abdomen: Bowel Sounds Present, Soft, Non Tender, Non-Distended, No Hepato-splenomegaly Extremities: No edema, Capillary Refill Less than 3 Seconds Skin: No rashes, No breakdown Musculoskeletal: No Tenderness to Palpation of Joints or Extremities Lymphatic: No Cervical, Supraclavicular, or Inguinal Adenopathy Neurological: Cranial nerves II-XII grossly intact, Neuro grossly intact, Motor Exam 5/5 strength throughout Psych/Mental Status: Normal Affect, Appropriate, Alert and oriented to time, place, person, mood and affect Microbiology Past 72 Hours 03/26/19 16:50 Stool Stool Occult Blood ([facility]) - Final Occult Blood Positive Laboratory Results 03/26/19 03:00: Hgb Cancelled, Hct Cancelled 03/26/19 16:55: WBC 12.1 H, RBC 3.08 L, Hgb 7.5 L, Hct 25.5 L, MCV 82.8, MCH 24.4 L, MCHC 29.4 L, RDW Std Deviation 49.1 H, RDW Coeff of Kelechi 16.4 H, Plt Count 327, MPV 10.5, Immature Gran % (Auto) 1.300 H, Neut % (Auto) 77.1 H, Lymph % (Auto) 12.6 L, [place] % (Auto) 7.8, Eos % (Auto) 0.8, Baso % (Auto) 0.4, Absolute Neuts (auto) 9.3 H, Absolute Lymphs (auto) 1.53, Nucleated RBC % 0 03/26/19 16:55: PT 19.8 H, INR 1.7 03/26/19 16:55: Sodium 139, Potassium 3.6, Chloride 108 H, Carbon Dioxide 23.0, Anion Gap 8, BUN 26 H, Creatinine 2.09 H, Estim Creat Clear Calc 19.96, Est GFR (MDRD) Af Amer 29 L, Est GFR (MDRD) Non-Af 24 L, BUN/Creatinine Ratio 12.4, Glucose 137 H, Calcium 8.2 L, Total Bilirubin 0.30, AST 4 L, ALT 7 L, Alkaline Phosphatase 102, Troponin I < 0.015, Total Protein 6.7, Albumin 3.0 L, Globulin 3.7, Albumin/Globulin Ratio 0.8 L 03/26/19 16:55: Lactic Acid 2.7 H* 03/26/19 16:55: Blood Type O POSITIVE, Antibody Screen NEGATIVE 03/26/19 16:55: Hemoglobin A1c 7.5 H 03/26/19 16:55: Magnesium 1.1 L 03/26/19 17:00: Crossmatch See Detail 03/26/19 21:35: Lactic Acid 1.3 03/26/19 22:34: POC Glucose 126 H 03/27/19 03:00: Hgb 7.9 L, Hct 26.1 L 03/27/19 05:36: WBC 11.7 H, RBC 3.31 L, Hgb 8.4 L, Hct 27.3 L, MCV 82.5, MCH 25.4 L, MCHC 30.8 L, RDW Std Deviation 48.3 H, RDW Coeff of Kelechi 16.1 H, Plt Count 300, MPV 10.6 03/27/19 05:36: Sodium 139, Potassium 3.4 L, Chloride 105, Carbon Dioxide 22.0, Anion Gap 12, BUN 29 H, Creatinine 1.79 H, Estim Creat Clear Calc 23.31, Est GFR (MDRD) Af Amer 35 L, Est GFR (MDRD) Non-Af 29 L, BUN/Creatinine Ratio 16.2, Glucose 118 H, Calcium 8.3 L, Phosphorus 4.1, Magnesium 1.2 L 03/27/19 05:36: Phosphorus Cancelled 03/27/19 06:48: POC Glucose 129 H Diagnostic Data Chest X-Ray 03/26/19 17:50 IMPRESSION: Stable cardiomegaly Stable thoracic dextroscoliosis, kyphosis, old mid thoracic spine compression deformity Electronically Signed: Je Chaudhari, at 18:43 EST Tel , Service support , Current Medications Acetaminophen (Tylenol) 650 mg PO Q6H PRN PRN PRN Reason: Pain Score 1-10/Temp > 100.7 F Al Hydroxide/Mg Hydroxide (Mylanta Ii) 30 ml PO Q6H PRN PRN PRN Reason: Gastric Burning Albuterol Sulfate (Ventolin Aerosols) 2.5 mg INHALATION Q4H PRN PRN Reason: Wheezing Albuterol Sulfate (Ventolin Aerosols) 2.5 mg INHALATION Q6HWA.RT [facility] Last Admin: 03/27/19 06:47 Dose: 2.5 mg Documented by: Allopurinol (Zyloprim) 300 mg PO DAILY [facility] Last Admin: 03/27/19 09:30 Dose: 300 mg Documented by: Amlodipine Besylate (Norvasc) 5 mg PO DAILY [facility] Last Admin: 03/27/19 09:30 Dose: 5 mg Documented by: Atorvastatin Calcium (Lipitor) 40 mg PO QHS [facility] Last Admin: 03/26/19 22:01 Dose: 40 mg Documented by: Budesonide (Pulmicort Aerosol) 0.5 mg INHALATION Q12H.RT [facility] Last Admin: 03/27/19 06:47 Dose: 0.5 mg Documented by: Cholecalciferol (Vitamin D) 1,000 unit PO DAILY [facility] Last Admin: 03/27/19 09:30 Dose: 1,000 unit Documented by: Doxycycline Monohydrate (Doxycycline) 100 mg PO BID [facility] Last Admin: 03/27/19 09:30 Dose: 100 mg Documented by: Gabapentin (Neurontin) 100 mg PO DAILY@0800 [facility] Last Admin: 03/27/19 09:30 Dose: 100 mg Documented by: Glucagon () 1 mg IM .X1 PRN PRN Reason: Hypoglycemia Guaifenesin (Robitussin) 20 ml PO Q4H PRN PRN PRN Reason: COUGH Pantoprazole Sodium 40 mg/ (Sodium Chloride) 110 mls @ 330 mls/hr IV Q24 [facility] Last Admin: 03/27/19 09:30 Dose: 330 mls/hr Documented by: Dextrose (Dextrose 10%-Water) 250 mls @ 999 mls/hr IV .Q16M PRN; Protocol PRN Reason: HYPOGLYCEMIA Insulin Human Lispro (Humalog Kwikpen (Bkc)) 0 unit SC ACHS [facility]; Protocol Last Admin: 03/27/19 07:25 Dose: Not Given Documented by: Losartan Potassium (Cozaar) 100 mg PO DAILY [facility] Last Admin: 03/27/19 09:30 Dose: 100 mg Documented by: Melatonin (Melatonin) 3 mg PO QHS PRN PRN PRN Reason: INSOMNIA Metoprolol Tartrate (Lopressor (Beta Eddie)) 25 mg PO DAILY [facility] Last Admin: 03/27/19 09:30 Dose: 25 mg Documented by: Metoprolol Tartrate (Lopressor (Beta Eddie)) 12.5 mg PO QHS [facility] Last Admin: 03/26/19 22:02 Dose: 12.5 mg Documented by: Montelukast Sodium (Singulair) 10 mg PO DAILY [facility] Last Admin: 03/27/19 09:30 Dose: 10 mg Documented by: Nitroglycerin (Nitrostat) 0.4 mg SUBLINGUAL Q5M PRN PRN Reason: CARDIAC/CHEST PAIN Nutritional Formula (Lactose Free) (Glucerna Shake) 120 ml PO TIDCM [facility] Ondansetron HCl (Zofran) 4 mg IV Q8H PRN PRN PRN Reason: NAUSEA/VOMITING Prochlorperazine Edisylate (Compazine Iv) 5 mg IV Q4H PRN PRN PRN Reason: Breakthrough nausea/vomiting STROKE Vital Signs/Narrative: Vital Signs Temp Pulse Resp BP Pulse Ox 03/27/19 09:30 83 03/27/19 09:11 98 F 83 18 131/62 H 92 03/27/19 06:59 82 03/27/19 06:47 86 19 H 92 Medical Necessity - Tobacco Use Smoking Status: Never smoker Tobacco Use: Non-smoker Assessment/Plan All Active Problems (Last Reviewed 03/26/19 @ 21:09 by Sherrie Cisse DO) Acute on chronic anemia (Acute) Lower GI bleed (Acute) Acute renal failure superimposed on stage 3 chronic kidney disease (Acute) Dyspnea on exertion (Acute) History of non-ST elevation myocardial infarction (NSTEMI) (Resolved 04/2017) History of meningioma (Resolved) Pseudoaneurysm following procedure (Resolved) 1. Lower GI bleed likely precipitated by patient been on eliquis, and also recently having had a colonoscopy with removal of 3 polyps has had minimal rectal bleeding since admission eliquis on hold. currently NPO is s/p blood transfusion of 2 units of PRBCs general surgery on board; per discussion with Dr Vargas, patient is not interested in having a repeat colonoscopy. Therefore, to monitor for now, and start on clear. continue holding eliquis. 2.Acute on chronic iron deficiency anemia due to acute blood loss from rectal bleeding s/p transfusion of 2 units of PRBCs Hb today is 8.4 3. Acute on chronic renal failure Cr was 2.06 on admission, now 1.79; baseline is ~1.2 being gently hydrated with IVF 4. History of atrial fibrillation: eliquis on hold. s/p atrial fibrillation. 5. CAD s/p CAB. Hypertension: on amlodipine and losartan 7. History of meningioma: s/p resection. stable. 8. history of cardiomyopathy: Ef is 50% 9. Type 2 diabetes mellitus insulin and linagliptin as well as metformin on hold. ISS. Accuchecks q6 DVT prophylaxis: SCDs Code Visit Inpatient E&M: 13464 Subs Hosp L2
[2019-03-27 11:25] LABS: Hemoglobin 8.1 g/dL (12.0-15.0)
[2019-03-27 11:25] LABS: Bedside Glucose 142 mg/dL (70-110)
--- NOTE | 2019-03-27 12:03 | CM.UR ---
RN CM Assessment Introduced role of RN CM to patient. Patient is alert and able to participate in RN CM Assessment. Care providers, pharmacy, and demographics verified. No family at bedside. Presentation: Bright red blood per rectum. Admit Dx: GI bleed Re-Admit: No Barriers/Issues: None PCP: Dr. Uriostegui Specialists: Dr. Winchester, Dr. Rodriguez, and neuro in [place] --Dr. Miles who in February. She is not sure who the office is going to give her to replace him. Preferred Pharmacy: [facility] in [place]. States did like her [employer] mail order but some things have changed with her insurance so couldn't get it through them anymore. Trying to set it up again. Insurance: [facility], core carrier and [employer] Rx Benefit: Yes LNOK: Manny () LW/HPOA: Yes. States is DPHOA. Agrees to bring in copies to get put into her records. Living Arrangements: 2 story home with but they do live on the main level. 2-3 steps into home. Son and fmgkupyg-yu-pas live next door and do help them as needed. ADL?s: Independent with personal care, medication mgmt, financial mgmt and cooking. States that her son/jicflrnx-bx-vmm help with home maintenance and cleaning. Transportation: self DME: CPAP from [facility]. [place]. States she needs grab bars and elevated toilet seat. Instructed on where to find and purchase these items. DME co: [employer]. Explained that they are not taking insurance as last I checked. States she goes to [employer] with someone who works there so she will talk to him. HHC: None SNF: None Goal: Home. She verb understanding of how to get needed DME. DC PLAN: Home, no additional needs identified. Mina Reynolds, RN, CCM.
[2019-03-27 16:35] LABS: Bedside Glucose 130 mg/dL (70-110)
[2019-03-27 17:55] LABS: Hematocrit 25.4 % (37-47); Hemoglobin 7.8 g/dL (12.0-15.0)
[2019-03-27] MEDS: Atorvastatin Calcium 40 MG Tablet PO (21:06)
[2019-03-27] MEDS: Metoprolol Tartrate 25 MG Tablet 12.5 MG PO (21:06)
[2019-03-27 22:01] LABS: Bedside Glucose 143 mg/dL (70-110)
[2019-03-27 23:20] LABS: Hematocrit 25.6 % (37-47); Hemoglobin 8.1 g/dL (12.0-15.0)
[2019-03-28] VITALS (8 sets, daily range): BP systolic 119–130; BP diastolic 45–64; PULSE 75–85; RESP 16–18; TEMP 36.6–36.9; O2SAT 93–99
[2019-03-28] MEDS: Budesonide Respules 0.5 MG/2 ML AMPUL.NEB. INHALATION (06:26)
[2019-03-28] MEDS: Albuterol 2.5 MG/3 ML VIAL.NEB. INHALATION (06:26)
[2019-03-28 06:44] LABS: Hematocrit 26.5 % (37-47); Hemoglobin 8.3 g/dL (12.0-15.0)
[2019-03-28 07:01] LABS: Bedside Glucose 143 mg/dL (70-110)
[2019-03-28] MEDS: Gabapentin 100 MG Capsule PO (08:15)
[2019-03-28] MEDS: Montelukast 10 MG Tablet PO (08:16)
[2019-03-28] MEDS: Allopurinol 300 MG Tablet PO (08:17)
[2019-03-28] MEDS: Glucerna Shake 120 ML LIQUID PO (08:23)
--- NOTE | 2019-03-28 08:53 | PCM.PN.SRG ---
Patient Problems: Active and Suspected Problems (Last Reviewed 03/26/19 @ 21:09 by Sherrie Cisse DO) Acute on chronic anemia (Acute) Lower GI bleed (Acute) Acute renal failure superimposed on stage 3 chronic kidney disease (Acute) Subjective: Patient's hemoglobin has remained stable at 8.3, patient did have a bowel movement which was brown no evidence of blood, patient currently still does not want colonoscopy if she does not have to - Physical Exam Vitals/I&O's: Vital Signs Temp Pulse Resp BP Pulse Ox 97.9 F 75 18 123/48 H 97 03/28/19 08:08 03/28/19 08:08 03/28/19 08:08 03/28/19 08:08 03/28/19 08:08 Oxygen Delivery Method Room Air Weight: 186 lb 14.4 oz Body Mass Index (BMI) 30.8 Orthostatic Vital Signs Start: 03/27/19 05:38 Freq: q24h Status: Active Protocol: Activity Type Activity Date Activity User E-Sign Co-Sign Detail Recorded Client Recorded Date Recorded By Document 03/28/19 06:04 CDB [id number] 03/28/19 06:08 CDB 03/28/19 06:04 Orthostatic Vitals Standing -Blood Pressure (90/60-120/80) 119/54 L -Extremity Use Right Arm -Pulse Rate (60-100) 85 Sitting -Blood Pressure (90/60-120/80) 130/56 H -Extremity Use Right Arm -Pulse Rate (60-100) 77 Lying -Blood Pressure (90/60-120/80) 126/45 H -Extremity Use Right Arm -Pulse Rate (60-100) 76 Intake and Output for Last 24 Hours 03/26/19 03/27/19 03/28/19 23:59 23:59 23:59 Intake Total 900 / 1300 2430 / 2830 700 / 700 Output Total 850 / 1050 200 / 200 Balance 900 / 1250 1580 / 1780 500 / 500 Microbiology Past 72 Hours 03/26/19 16:50 Stool Stool Occult Blood ([facility]) - Final Occult Blood Positive Laboratory Results 03/27/19 10:50: Hgb 8.1 L, Hct 26.0 L 03/27/19 11:19: POC Glucose 142 H 03/27/19 16:23: POC Glucose 130 H 03/27/19 17:25: Hgb 7.8 L, Hct 25.4 L 03/27/19 21:05: POC Glucose 143 H 03/27/19 23:00: Hgb 8.1 L, Hct 25.6 L 03/28/19 05:22: Hgb 8.3 L, Hct 26.5 L 03/28/19 06:48: POC Glucose 143 H Current Medications Acetaminophen (Tylenol) 650 mg PO Q6H PRN PRN PRN Reason: Pain Score 1-10/Temp > 100.7 F Al Hydroxide/Mg Hydroxide (Mylanta Ii) 30 ml PO Q6H PRN PRN PRN Reason: Gastric Burning Albuterol Sulfate (Ventolin Aerosols) 2.5 mg INHALATION Q4H PRN PRN Reason: Wheezing Albuterol Sulfate (Ventolin Aerosols) 2.5 mg INHALATION Q6HWA.RT [facility] Last Admin: 03/28/19 06:26 Dose: 2.5 mg Documented by: Allopurinol (Zyloprim) 300 mg PO DAILY [facility] Last Admin: 03/28/19 08:17 Dose: 300 mg Documented by: Amlodipine Besylate (Norvasc) 5 mg PO DAILY [facility] Last Admin: 03/27/19 09:30 Dose: 5 mg Documented by: Atorvastatin Calcium (Lipitor) 40 mg PO QHS [facility] Last Admin: 03/27/19 21:06 Dose: 40 mg Documented by: Budesonide (Pulmicort Aerosol) 0.5 mg INHALATION Q12H.RT [facility] Last Admin: 03/28/19 06:26 Dose: 0.5 mg Documented by: Cholecalciferol (Vitamin D) 1,000 unit PO DAILY [facility] Last Admin: 03/28/19 08:17 Dose: 1,000 unit Documented by: Doxycycline Monohydrate (Doxycycline) 100 mg PO BID [facility] Last Admin: 03/27/19 21:06 Dose: 100 mg Documented by: Gabapentin (Neurontin) 100 mg PO DAILY@0800 [facility] Last Admin: 03/28/19 08:15 Dose: 100 mg Documented by: Glucagon () 1 mg IM .X1 PRN PRN Reason: Hypoglycemia Guaifenesin (Robitussin) 20 ml PO Q4H PRN PRN PRN Reason: COUGH Pantoprazole Sodium 40 mg/ (Sodium Chloride) 110 mls @ 330 mls/hr IV Q24 [facility] Last Infusion: 03/27/19 09:50 Dose: Infused Documented by: Dextrose (Dextrose 10%-Water) 250 mls @ 999 mls/hr IV .Q16M PRN; Protocol PRN Reason: HYPOGLYCEMIA Insulin Human Lispro (Humalog Kwikpen (Bkc)) 0 unit SC ACHS [facility]; Protocol Last Admin: 03/28/19 07:00 Dose: Not Given Documented by: Losartan Potassium (Cozaar) 100 mg PO DAILY [facility] Last Admin: 03/27/19 09:30 Dose: 100 mg Documented by: Melatonin (Melatonin) 3 mg PO QHS PRN PRN PRN Reason: INSOMNIA Metoprolol Tartrate (Lopressor (Beta Eddie)) 25 mg PO DAILY [facility] Last Admin: 03/27/19 09:30 Dose: 25 mg Documented by: Metoprolol Tartrate (Lopressor (Beta Eddie)) 12.5 mg PO QHS [facility] Last Admin: 03/27/19 21:06 Dose: 12.5 mg Documented by: Montelukast Sodium (Singulair) 10 mg PO DAILY [facility] Last Admin: 03/28/19 08:16 Dose: 10 mg Documented by: Nitroglycerin (Nitrostat) 0.4 mg SUBLINGUAL Q5M PRN PRN Reason: CARDIAC/CHEST PAIN Nutritional Formula (Lactose Free) (Glucerna Shake) 120 ml PO TIDCM [facility] Last Admin: 03/28/19 08:23 Dose: 120 ml Documented by: Ondansetron HCl (Zofran) 4 mg IV Q8H PRN PRN PRN Reason: NAUSEA/VOMITING Prochlorperazine Edisylate (Compazine Iv) 5 mg IV Q4H PRN PRN PRN Reason: Breakthrough nausea/vomiting Medical Necessity - Tobacco Use Smoking Status: Never smoker Tobacco Use: Non-smoker Assessment/Plan All Active Problems (Last Reviewed 03/26/19 @ 21:09 by Sherrie Cisse DO) Acute on chronic anemia (Acute) Lower GI bleed (Acute) Acute renal failure superimposed on stage 3 chronic kidney disease (Acute) Dyspnea on exertion (Acute) History of non-ST elevation myocardial infarction (NSTEMI) (Resolved 04/2017) History of meningioma (Resolved) Pseudoaneurysm following procedure (Resolved) 78-year-old female with bright red blood per rectum status post polypectomy x3 on 03/16 on Eliquis for history of A. fib status post ablation 2018. 1. His hemoglobin has remained stable patient denies any abdominal pain patient did have a bowel movement which was brown. Patient still would prefer no colonoscopy if possible. Okay to DC home discussed with patient that we are unable to say for sure if she should go back on her Eliquis as would not know why she had bleeding. Recommend her getting a colonoscopy as an outpatient or at least talking with Dr. Hanks see if she needs to go back on the Eliquis to her right her risk would be if she did not. Ramandeep Vargas M.D. Pager: [phone] [facility] [address] [place] [address], [facility], [address] [place] [address] Office: [phone] Code Visit Inpatient E&M: 63612 Subs Hosp L1
--- NOTE | 2019-03-28 09:16 | PCM.DC ---
- Discharge Diagnoses Current Active Problems: Current Active and Chronic Problems (Last Reviewed 03/26/19 @ 21:09 by Sherrie Cisse DO) Acute on chronic anemia (Acute) Lower GI bleed (Acute) GERD (gastroesophageal reflux disease) (Chronic) Grade II diastolic dysfunction (Chronic) Colon polyps (Chronic) found on a colonoscopy by Dr. Alfonso in February of 2019 Gout (Chronic) Benign positional vertigo (Chronic) Diabetes mellitus type 2 in obese (Chronic) Acute renal failure superimposed on stage 3 chronic kidney disease (Acute) You will use the following diet at home:: Cardiac Your food should be the consistency of: Regular Your liquids should be the consistency of: Regular/Thin Discharge Activity: Return to Normal Activity Weight Bearing Status: Weight bearing as tolerated Call your doctor if you observe: Fever of 101 or Higher, Shortness of breath, Dizziness, - - rectal bleeding Instructions: When You Have Gastrointestinal (GI) Bleeding, Lower GI Endoscopy Allergies/Adverse Reactions: Allergies lisinopril Adverse Reaction (Verified 03/26/19 15:46) cough Medications to take at Discharge Fluticasone/Salmeterol [Advair 250/50 Mcg Diskus] 1 puff INHALATION BID 08/24/17 Montelukast [Singulair] 10 mg PO DAILY 08/24/17 Nitroglycerin (INPATIENT USE) [Nitrostat] 0.4 mg SUBLINGUAL Q5M PRN 08/24/17 albuterol sulfate 90 mcg/actuation aerosol inhaler 1 puff INHALATION Q4H PRN 04/09/18 amlodipine 5 mg tablet 5 mg PO DAILY #90 tab 04/09/18 linagliptin 5 mg tablet 5 mg PO DAILY 04/09/18 metformin 500 mg tablet,extended release 24 hr 1,000 mg PO BID tab 05/14/18 atorvastatin 40 mg tablet 40 mg PO QHS #90 tab 05/19/18 gabapentin 100 mg capsule 100 mg PO DAILY cap 08/06/18 allopurinol 300 mg tablet 300 mg PO DAILY tab 02/09/19 losartan 100 mg tablet 100 mg PO DAILY tab 02/09/19 metoprolol tartrate 25 mg tablet 12.5 mg PO QHS tab 02/09/19 Cholecalciferol (VIT D3) [Vitamin D3] 1,000 unit PO DAILY 03/26/19 Doxycycline 100 mg PO BID 03/26/19 Furosemide 80 mg PO DAILY 03/26/19 Furosemide [Lasix] 40 mg PO DAILY 03/26/19 Guaifenesin/Codeine Phosphate [Guaifen-Codeine 100-10 mg/5 ml] 5 - 10 ml PO Q4H PRN PRN 03/26/19 Insulin Detemir [Levemir FlexPen] 20 units SQ DAILY 03/26/19 Lansoprazole 30 mg PO DAILY 03/26/19 Methscopolamine [place] 5 mg PO BID 03/26/19 Metoprolol Tartrate 25 mg PO DAILY 03/26/19 Pantoprazole Sodium [Protonix] 40 mg PO DAILY #30 tab 03/28/19 Potassium Chloride [Klor-Con] 20 meq PO DAILY #30 packet 03/28/19 The following prescriptions were given: Potassium Chloride [Klor-Con] 20 meq PO DAILY #30 packet Transmission Status: Pending to [facility]/pharmacy #[id number] Pantoprazole Sodium [Protonix] 40 mg PO DAILY #30 tab Transmission Status: Pending to [facility]/pharmacy #[id number] Primary Care Physician: Nia Uriostegui DO [Primary Care Provider] - Please follow up with your Primary Care Physician in: one week Test Results: Test results from this visit will be discussed in further detail at your follow-up appointment, if applicable. Please Follow Up With: Ramandeep Vargas MD When: 1-2 weeks Please Follow Up With: Christopher Alfonso MD When: one week Please Follow Up With: Jonel Winchester MD When: 1-2 weeks Proposed Discharge Date: 03/28/19
--- NOTE | 2019-03-28 10:07 | PCM.DC.SUM ---
Discharge Date and Diagnosis Date of Admission: 03/26/19 Date of Discharge: 03/28/19 - Primary Discharge Diagnosis Active and Suspected Problems (Last Reviewed 03/26/19 @ 21:09 by Sherrie Cisse DO) Acute on chronic anemia (Acute) Lower GI bleed (Acute) Acute renal failure superimposed on stage 3 chronic kidney disease (Acute) - Secondary Discharge Diagnosis Chronic Problems (Last Reviewed 03/26/19 @ 21:09 by Sherrie Cisse DO) Iron deficiency anemia refractory to iron therapy (Chronic) GERD (gastroesophageal reflux disease) (Chronic) Grade II diastolic dysfunction (Chronic) Colon polyps (Chronic) found on a colonoscopy by Dr. Alfonso in February of 2019 Gout (Chronic) Benign positional vertigo (Chronic) Diabetes mellitus type 2 in obese (Chronic) Atherosclerotic heart disease of [place] coronary artery without angina pectoris (Chronic) H/O coronary artery bypass surgery (Chronic 08/06/04) CABG x2 Sequential VILLAGRAN side to side to D2 and end to side to LAD 08-06-04 Chronic combined systolic and diastolic CHF (congestive heart failure) (Chronic) EF 50% in 2017 Paroxysmal atrial fibrillation (Chronic) Status post ablation at [facility] in November 2017; Paroxysmal atrial flutter (Chronic) Cardiomyopathy in diseases classified elsewhere (Chronic) Essential (primary) hypertension (Chronic) Left bundle branch block (Chronic) Secondary pulmonary arterial hypertension (Chronic) PA pressure estimated at 54 on echocardiogram done in September 2017 HLD (hyperlipidemia) (Chronic) Hospital Course and Treatment Imaging Results: Diagnostic Data Chest X-Ray 03/26/19 17:50 IMPRESSION: Stable cardiomegaly Stable thoracic dextroscoliosis, kyphosis, old mid thoracic spine compression deformity Electronically Signed: Je Chaudhari, at 18:43 EST Tel , Service support , general surgery- Dr Bustos Operations: None Procedures: None Summary of Care Provided: The patient is a 78 year old F with an extensive past medical history as outlined. She was admitted through the ED on 03/26/2019 with a complaint of dizziness, rectal bleeding and shortness of breath with exertion. Patient was on chronic anticoagulation with Eliquis for A. fib for which she had had radiofrequency ablation. She had recently had a colonoscopy with removal of 3 polyps about 10 days prior to admission and was being seen by Dr. Hancock-college administrator for anemia. She had no nausea vomiting or hematemesis. Hemoglobin was 7.5 on admission and creatinine was 2.09. She was admitted to be managed for lower GI bleed and acute on chronic symptomatic anemia. Eliquis was held. She received 2 units of packed red blood cells and hemoglobin came up subsequently to 8.4. She was kept n.p.o. and hydrated gently with IV fluids. General surgery was consulted. Patient refused to have a repeat colonoscopy. Bleeding did not recur during admission and hemoglobin was 8.3 on 03/28/2019. Patient tolerated clear liquids and full liquid diet. Despite counseling by general surgery, patient still refused colonoscopy as she says she had recently had 1. Patient was counseled that in light of her lower GI bleed and no clear diagnosis made for the course because of her refusal of colonoscopy, it was prudent to stop Eliquis. Patient was again counseled that she was at risk of stroke because of the Eliquis being stopped and she expressed understanding of this. Plan is to discharge patient home on 03/28/2019. She is follow-up with her primary care doctor and cardiology as well as general surgery. She is also to follow-up with gastroenterology. Patient was seen and examined prior to discharge. She felt well and had no complaints. Bleeding had not recurred. She expresses apprehension about her Eliquis being stopped. Again with the general surgeon being present, patient was counseled about need for colonoscopy to ascertain the cause of bleeding. 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 She was therefore counseled that we could not let her continue with the Eliquis as she was at risk of bleeding especially since we did not know the exact cause of the bleeding. She was again counseled about risk of stroke due to A. fib though she had undergone radiofrequency ablation and had been in sinus rhythm. Review of systems otherwise negative. Labs and vitals reviewed. Home medication reviewed and reconciled. O/e: Vital Signs Height 5 ft 5 in Weight: 186 lb 14.4 oz Weight in Pounds 186.9 lbs Pulse Ox 99 Temperature 98.0 F Pulse Rate [Standing] 85 Pulse Rate [Sitting] 77 Pulse Rate [Lying] 76 Pulse Rate 75 Respiratory Rate 18 Blood Pressure [Standing] 119/54 Blood Pressure [Sitting] 130/56 Blood Pressure [Lying] 126/45 Blood Pressure 129/64 Blood Pressure Position Semi-Fowlers [] General: Alert, Oriented x3, Cooperative, No apparent distress HEENT: Atraumatic, PERRLA, EOMI, Normocephalic Oral: Dry Mucosa Neck: Supple, No JVD, Negative Carotid Bruits Lungs: Clear to auscultation, Normal air movement, No rhonchi, No wheeze, No rales Cardiovascular: Regular rate, Regular Rhythm, Normal S1, Normal S2, No murmurs Abdomen: Bowel Sounds Present, Soft, - - moderate generalised tenderness, no guarding or rebound tenderness. Extremities: No edema, Capillary Refill Less than 3 Seconds Skin: No rashes, No breakdown Musculoskeletal: No Tenderness to Palpation of Joints or Extremities Lymphatic: No Cervical, Supraclavicular, or Inguinal Adenopathy Neurological: Cranial nerves II-XII grossly intact, Neuro grossly intact, Motor Exam 5/5 strength throughout Psych/Mental Status: Normal Affect, Appropriate, Alert and oriented to time, place, person, mood and affect Plan as above. For discharge home today. She was discharged on p.o. pantoprazole. She is to follow-up with hematology as well as primary care doctor, cardiology, general surgery and gastroenterology. - Physical Exam Vitals/I&O's: Vital Signs Temp Pulse Resp BP Pulse Ox 97.9 F 75 18 123/48 H 97 03/28/19 08:08 03/28/19 08:08 03/28/19 08:08 03/28/19 08:08 03/28/19 08:08 Oxygen Delivery Method Room Air Weight: 186 lb 14.4 oz Body Mass Index (BMI) 30.8 Orthostatic Vital Signs Start: 03/27/19 05:38 Freq: q24h Status: Active Protocol: Activity Type Activity Date Activity User E-Sign Co-Sign Detail Recorded Client Recorded Date Recorded By Document 03/28/19 06:04 CDB [id number] 03/28/19 06:08 CDB 03/28/19 06:04 Orthostatic Vitals Standing -Blood Pressure (90/60-120/80 mm Hg) 119/54 L -Extremity Use Right Arm -Pulse Rate (60-100 beats/min) 85 Sitting -Blood Pressure (90/60-120/80 mm Hg) 130/56 H -Extremity Use Right Arm -Pulse Rate (60-100 beats/min) 77 Lying -Blood Pressure (90/60-120/80 mm Hg) 126/45 H -Extremity Use Right Arm -Pulse Rate (60-100 beats/min) 76 Intake and Output for Last 24 Hours 03/26/19 03/27/19 03/28/19 23:59 23:59 23:59 Intake Total 900 / 1300 2430 / 2830 700 / 700 Output Total 850 / 1050 200 / 200 Balance 900 / 1250 1580 / 1780 500 / 500 Microbiology Past 72 Hours 03/26/19 16:50 Stool Stool Occult Blood ([place]) - Final Occult Blood Positive Laboratory Results 03/27/19 10:50: Hgb 8.1 L, Hct 26.0 L 03/27/19 11:19: POC Glucose 142 H 03/27/19 16:23: POC Glucose 130 H 03/27/19 17:25: Hgb 7.8 L, Hct 25.4 L 03/27/19 21:05: POC Glucose 143 H 03/27/19 23:00: Hgb 8.1 L, Hct 25.6 L 03/28/19 05:22: Hgb 8.3 L, Hct 26.5 L 03/28/19 06:48: POC Glucose 143 H Current Medications Acetaminophen (Tylenol) 650 mg PO Q6H PRN PRN PRN Reason: Pain Score 1-10/Temp > 100.7 F Al Hydroxide/Mg Hydroxide (Mylanta Ii) 30 ml PO Q6H PRN PRN PRN Reason: Gastric Burning Albuterol Sulfate (Ventolin Aerosols) 2.5 mg INHALATION Q4H PRN PRN Reason: Wheezing Albuterol Sulfate (Ventolin Aerosols) 2.5 mg INHALATION Q6HWA.RT [facility] Last Admin: 03/28/19 06:26 Dose: 2.5 mg Documented by: Allopurinol (Zyloprim) 300 mg PO DAILY [facility] Last Admin: 03/28/19 08:17 Dose: 300 mg Documented by: Amlodipine Besylate (Norvasc) 5 mg PO DAILY [facility] Last Admin: 03/27/19 09:30 Dose: 5 mg Documented by: Atorvastatin Calcium (Lipitor) 40 mg PO QHS [facility] Last Admin: 03/27/19 21:06 Dose: 40 mg Documented by: Budesonide (Pulmicort Aerosol) 0.5 mg INHALATION Q12H.RT [facility] Last Admin: 03/28/19 06:26 Dose: 0.5 mg Documented by: Cholecalciferol (Vitamin D) 1,000 unit PO DAILY [facility] Last Admin: 03/28/19 08:17 Dose: 1,000 unit Documented by: Doxycycline Monohydrate (Doxycycline) 100 mg PO BID [facility] Last Admin: 03/27/19 21:06 Dose: 100 mg Documented by: Gabapentin (Neurontin) 100 mg PO DAILY@0800 [facility] Last Admin: 03/28/19 08:15 Dose: 100 mg Documented by: Glucagon () 1 mg IM .X1 PRN PRN Reason: Hypoglycemia Guaifenesin (Robitussin) 20 ml PO Q4H PRN PRN PRN Reason: COUGH Pantoprazole Sodium 40 mg/ (Sodium Chloride) 110 mls @ 330 mls/hr IV Q24 [facility] Last Infusion: 03/27/19 09:50 Dose: Infused Documented by: Dextrose (Dextrose 10%-Water) 250 mls @ 999 mls/hr IV .Q16M PRN; Protocol PRN Reason: HYPOGLYCEMIA Insulin Human Lispro (Humalog Kwikpen (Bkc)) 0 unit SC ACHS [facility]; Protocol Last Admin: 03/28/19 07:00 Dose: Not Given Documented by: Losartan Potassium (Cozaar) 100 mg PO DAILY [facility] Last Admin: 03/27/19 09:30 Dose: 100 mg Documented by: Melatonin (Melatonin) 3 mg PO QHS PRN PRN PRN Reason: INSOMNIA Metoprolol Tartrate (Lopressor (Beta Eddie)) 25 mg PO DAILY [facility] Last Admin: 03/27/19 09:30 Dose: 25 mg Documented by: Metoprolol Tartrate (Lopressor (Beta Eddie)) 12.5 mg PO QHS [facility] Last Admin: 03/27/19 21:06 Dose: 12.5 mg Documented by: Montelukast Sodium (Singulair) 10 mg PO DAILY [facility] Last Admin: 03/28/19 08:16 Dose: 10 mg Documented by: Nitroglycerin (Nitrostat) 0.4 mg SUBLINGUAL Q5M PRN PRN Reason: CARDIAC/CHEST PAIN Nutritional Formula (Lactose Free) (Glucerna Shake) 120 ml PO TIDCM [facility] Last Admin: 03/28/19 08:23 Dose: 120 ml Documented by: Ondansetron HCl (Zofran) 4 mg IV Q8H PRN PRN PRN Reason: NAUSEA/VOMITING Prochlorperazine Edisylate (Compazine Iv) 5 mg IV Q4H PRN PRN PRN Reason: Breakthrough nausea/vomiting Discharge Diet: Low fat/ Low Cholesterol Discharge Activity: Return to Normal Activity Weight Bearing Status: Weight bearing as tolerated Call your doctor if you observe: Fever of 101 or Higher, Shortness of breath, Dizziness, - - rectal bleeding Home Medications: Medications to take at Discharge Fluticasone/Salmeterol [Advair 250/50 Mcg Diskus] 1 puff INHALATION BID 08/24/17 Montelukast [Singulair] 10 mg PO DAILY 08/24/17 Nitroglycerin (INPATIENT USE) [Nitrostat] 0.4 mg SUBLINGUAL Q5M PRN 08/24/17 albuterol sulfate 90 mcg/actuation aerosol inhaler 1 puff INHALATION Q4H PRN 04/09/18 amlodipine 5 mg tablet 5 mg PO DAILY #90 tab 04/09/18 linagliptin 5 mg tablet 5 mg PO DAILY 04/09/18 metformin 500 mg tablet,extended release 24 hr 1,000 mg PO BID tab 05/14/18 atorvastatin 40 mg tablet 40 mg PO QHS #90 tab 05/19/18 gabapentin 100 mg capsule 100 mg PO DAILY cap 08/06/18 allopurinol 300 mg tablet 300 mg PO DAILY tab 02/09/19 losartan 100 mg tablet 100 mg PO DAILY tab 02/09/19 metoprolol tartrate 25 mg tablet 12.5 mg PO QHS tab 02/09/19 Cholecalciferol (VIT D3) [Vitamin D3] 1,000 unit PO DAILY 03/26/19 Doxycycline 100 mg PO BID 03/26/19 Furosemide 80 mg PO DAILY 03/26/19 Furosemide [Lasix] 40 mg PO DAILY 03/26/19 Guaifenesin/Codeine Phosphate [Guaifen-Codeine 100-10 mg/5 ml] 5 - 10 ml PO Q4H PRN PRN 03/26/19 Insulin Detemir [Levemir FlexPen] 20 units SQ DAILY 03/26/19 Lansoprazole 30 mg PO DAILY 03/26/19 Methscopolamine [place] 5 mg PO BID 03/26/19 Metoprolol Tartrate 25 mg PO DAILY 03/26/19 Pantoprazole Sodium [Protonix] 40 mg PO DAILY #30 tab 03/28/19 Potassium Chloride [Klor-Con] 20 meq PO DAILY #30 packet 03/28/19 Following Prescrptions Were Given to Patient: Potassium Chloride [Klor-Con] 20 meq PO DAILY #30 packet Transmission Status: Received by [facility]/pharmacy #[id number] Pantoprazole Sodium [Protonix] 40 mg PO DAILY #30 tab Transmission Status: Received by [facility]/pharmacy #[id number] Primary Care Physician: Nia Uriostegui DO [Primary Care Provider] - Please follow up with your Primary Care Physician in: one week Please Follow Up With: Ramandeep Bustos MD When: 1-2 weeks Please Follow Up With: Christopher Alfonso MD When: one week Please Follow Up With: Jonel Winchester MD When: 1-2 weeks Patient Instructions: When You Have Gastrointestinal (GI) Bleeding, Lower GI Endoscopy Disposition: Home Minutes spent on discharge:: 45 Patient Condition:: Stable Medical Necessity - Tobacco Use Smoking Status: Never smoker Tobacco Use: Non-smoker Meaningful Use Info Meaningful Use Diagnoses (Choose all that apply): None applicable Code Visit Inpatient E&M: 97588 Disch Hosp
[2019-03-28] MEDS: amLODIPine 5 MG Tablet PO (11:17)
[2019-03-28] MEDS: Losartan Potassium 100 MG Tablet PO (11:17)
[2019-03-28] MEDS: Doxycycline 100 MG CAPSULE PO (11:17)
[2019-03-28] MEDS: Metoprolol Tartrate 25 MG Tablet PO (11:17)
[2019-03-28 11:31] LABS: Bedside Glucose 180 mg/dL (70-110)
--- NOTE | 2019-03-29 14:13 | CASEMGMT ---
[facility] PHONE CALL DC DATE: 03.28.2019 DC Disposition: Home Diagnosis on Discharge: anemia LACE/STRATA: 11/12 Attempted call to phone. No answer. Ethel SOMMERN RN ACM
== END 2019-03-28 13:20 | disposition home or self-care (01) | DRG 378 ==
LOC: ED 18:26 → MS3 19:12
PROVIDERS: Surgery; Admitting Provider Internal Medicine; Emergency Provider Emergency Medicine; PCP Internal Medicine; Referring Provider Internal Medicine; Visit Provider Student in an Organized Health Care Education/Training Program
DX: K92.2 Gastrointestinal hemorrhage, unspecified (principal); D62 Acute posthemorrhagic anemia; N17.9 Acute kidney failure, unspecified; E87.2 Acidosis; I42.9 Cardiomyopathy, unspecified; I13.0 Hypertensive heart and chronic kidney disease with heart failure and stage 1 through stage 4 chronic kidney disease, or unspecified chronic kidney disease; I50.42 Chronic combined systolic (congestive) and diastolic (congestive) heart failure; Z86.010 Personal history of colon polyps; I25.10 Atherosclerotic heart disease of native coronary artery without angina pectoris; Z79.01 Long term (current) use of anticoagulants; I48.0 Paroxysmal atrial fibrillation; N18.3 Chronic kidney disease, stage 3 (moderate); E11.22 Type 2 diabetes mellitus with diabetic chronic kidney disease; I27.21 Secondary pulmonary arterial hypertension; M10.9 Gout, unspecified; Z86.011 Personal history of benign neoplasm of the brain; Z79.4 Long term (current) use of insulin; K21.9 Gastro-esophageal reflux disease without esophagitis; I44.7 Left bundle-branch block, unspecified; Z95.1 Presence of aortocoronary bypass graft; E78.5 Hyperlipidemia, unspecified
CPT/HCPCS: 36415; 71045; 80048; 80053; 82274; 82962; 83036; 83605; 83735; 84100; 84484; 85014; 85018; 85025; 85027; 85610; 86850; 86900; 86901; 86920; 86922; 93005; 94640; 96365; 99285; J1756; J7030; J7040; J7050; P9016; A4216; J1940

== ENCOUNTER → 2019-11-30 10:35 | Outpatient (CLI) | payer MEDICARE, OTHER, SELFPAY ==
[2019-11-11 13:45] VITALS: BMI 31.9
[2019-11-30 10:55] LABS: Absolute Lymphocyte Count 2.22 X10^3/uL (0.83-4.51); Absolute Neutrophil Count 6.6 X10^3/uL (2.0-7.7); Basophil# 0.04 X10^3/uL; Basophil% 0.4 % (0-1); Eosinophil# 0.15 X10^3/uL; Eosinophils% 1.5 % (0-5); Hematocrit 36.7 % (37-47); Hemoglobin 11.5 g/dL (12.0-15.0); Lymphocyte # 2.22 X10^3/ul (4.0); Lymphocyte % 22.4 % (19-41); Mean Corp Hgb Conc 31.3 g/dL (32-36); Mean Corpuscular Hgb 29.2 pg (27.0-32.0); Mean Corpuscular Volume 93.1 fL (81-99); Mean Platelet Vol. 10.3 fl (6.2-12.0); Monocyte# 0.83 X10^3/uL; Monocyte% 8.4 % (0-10); NRBC Flagged by Analyzer 0 % (0-5); Neutrophil # 6.61 X10^3/uL (2.7-7.7); Neutrophil % 66.5 % (47-70); Platelet Count 235 K/mm3 (150-450); RBC Distribution Width CV 14.3 % (11.6-14.6); RBC Distribution Width SD 48.5 fl (35.1-43.9); Red Blood Count 3.94 M/mm3 (4.2-5.4); White Blood Count 9.9 K/mm3 (4.4-11.0)
[2019-11-30 11:26] LABS: Anion Gap 4 (5-15); BUN 23 mg/dL (7-18); BUN/Creat Ratio 16.7 RATIO (10-20); Calcium,Total 9.1 mg/dL (8.5-10.1); Chloride 105 mmol/L (98-107); Creatinine, Serum 1.38 mg/dL (0.55-1.02); EST Glomerular Filtration Rate 39 mL/min (>60); Est Glom Filt Rate - Afr Amer 47 mL/min (>60); Glucose 117 mg/dL (74-106); Magnesium 1.5 mg/dL (1.6-2.6); Sodium Level 139 mmol/L (136-145); Thyroid Stim Hormone (TSH) 1.05 uIU/mL (0.358-3.74)
== END ==
PROVIDERS: PCP Internal Medicine; Referring Provider Physician Assistant Medical; Visit Provider Physician Assistant Medical
DX: I25.10 Atherosclerotic heart disease of native coronary artery without angina pectoris (principal); I48.0 Paroxysmal atrial fibrillation
CPT/HCPCS: 36415; 80048; 83735; 84443; 85025

== ENCOUNTER → 2019-12-02 11:41 | Outpatient (CLI) | payer MEDICARE, OTHER, SELFPAY ==
[2019-11-11 13:45] VITALS: BMI 31.9
== END ==
PROVIDERS: PCP Internal Medicine; Referring Provider Physician Assistant Medical; Visit Provider Physician Assistant Medical
DX: I48.0 Paroxysmal atrial fibrillation (principal); I48.92 Unspecified atrial flutter; R06.02 Shortness of breath; R00.2 Palpitations
CPT/HCPCS: 93225; 93226

== ENCOUNTER → 2020-03-30 14:40 | Outpatient (CLI) | payer MEDICARE, OTHER, SELFPAY ==
--- NOTE | 2020-03-30 14:49 | CT_ITS ---
STUDY: CTA CHEST REASON FOR EXAM: Female, 79 years old. SOB, HX COVID RADIATION DOSAGE (If Supplied By Facility): CTDIvol = ( 17.63 ) mGy, DLP = ( 620.82 ) mGycm TECHNIQUE: The examination was performed with the intravenous administration of IV 100ML ISOVUE 370. Post-processing of the angiographic images was performed, with multiplanar reformation and 3D reconstruction. Individualized dose optimization techniques were used for this CT. COMPARISON: Comparison is made with prior study 11/13/2016. FINDINGS: Normal enhancement of the main pulmonary artery and right and left pulmonary arteries. Normal enhancement of the bilateral peripheral pulmonary arteries. There is no demonstrated pulmonary embolism. There is atherosclerotic calcification of the aortic arch with tortuosity. There is no demonstrated aortic dissection. There is cardiomegaly. Sternal cerclage wires and vascular clips are present from a prior sternotomy and coronary artery bypass graft procedure (CABG). Normal mediastinum. Normal hilar regions. Normal visualized trachea and bronchi. The lungs are well expanded. Stable scattered small bilateral pulmonary nodules. Small bilateral pleural effusions with bibasilar atelectasis slightly more prominent on the right side. Normal pleura. Normal chest wall structures. There are degenerative changes of thoracic spine. Increased kyphosis. Loss of height of the lower dorsal vertebrae. Normal visualized upper abdomen. CT/CTA Chest W/WO Contrast IMPRESSION: No evidence of pulmonary embolism. Small bilateral pleural effusions with bibasilar atelectasis slightly worse on the left side. Electronically Signed: John Corral MD at 15:42 EST , Service support ,
[2020-03-30 15:25] LABS: CREATININE FINGERSTICK 1.6 mg/dL (0.55-1.02)
[2020-03-30 16:46] LABS: Anion Gap 6 (5-15); BUN 15 mg/dL (7-18); BUN/Creat Ratio 12.9 RATIO (10-20); Calcium,Total 9.2 mg/dL (8.5-10.1); Chloride 102 mmol/L (98-107); Creatinine, Serum 1.16 mg/dL (0.55-1.02); EST Glomerular Filtration Rate 48 mL/min (>60); Est Glom Filt Rate - Afr Amer 58 mL/min (>60); Glucose 90 mg/dL (74-106); Potassium 3.7 mmol/L (3.5-5.1); Sodium Level 139 mmol/L (136-145)
[2020-03-30 16:47] LABS: BNP,B-Type NATRIURETIC PEPTIDE 243.6 pg/mL (0-100)
== END ==
PROVIDERS: Physician Assistant Medical; PCP Internal Medicine; Referring Provider Internal Medicine; Visit Provider Internal Medicine
DX: R06.02 Shortness of breath (principal); I50.42 Chronic combined systolic (congestive) and diastolic (congestive) heart failure; I42.8 Other cardiomyopathies; I27.21 Secondary pulmonary arterial hypertension
CPT/HCPCS: 36415; 71275; 80048; 83880; Q9967

== ENCOUNTER → 2020-05-11 12:23 | Outpatient (CLI) | payer MEDICARE, OTHER, SELFPAY ==
[2020-04-05 11:23] VITALS: BMI 32.5
[2020-05-11 13:15] LABS: Anion Gap 4 (5-15); BUN 19 mg/dL (7-18); BUN/Creat Ratio 13.8 RATIO (10-20); Calcium,Total 9.5 mg/dL (8.5-10.1); Chloride 103 mmol/L (98-107); Creatinine, Serum 1.38 mg/dL (0.55-1.02); EST Glomerular Filtration Rate 39 mL/min (>60); Est Glom Filt Rate - Afr Amer 47 mL/min (>60); Glucose 101 mg/dL (74-106); Potassium 3.9 mmol/L (3.5-5.1); Sodium Level 138 mmol/L (136-145)
== END ==
PROVIDERS: PCP Internal Medicine; Referring Provider Physician Assistant Medical; Visit Provider Physician Assistant Medical
DX: I50.42 Chronic combined systolic (congestive) and diastolic (congestive) heart failure (principal); Z79.899 Other long term (current) drug therapy
CPT/HCPCS: 36415; 80048

== ENCOUNTER → 2020-06-08 09:50 | Outpatient (CLI) | payer MEDICARE, OTHER, SELFPAY ==
[2020-05-18 13:43] VITALS: BMI 32.8
--- NOTE | 2020-06-08 10:19 | ECHOD_ITS ---
Procedure This was a 2D Doppler, Color Flow transthoracic echocardiogram. Exam performed in department. Left Ventricle Normal LV size. The estimated ejection fraction is 47 %. Stage 2 diastolic dysfunction. There is mild global hypokinesis of the left ventricle. Right Ventricle Normal RV size. Normal systolic function. Atria The left atrium is mildly enlarged. Normal right atrium. Mitral Valve There is mild to moderate mitral annular calcification. Mild (1+) eccentric mitral valve insufficiency. Tricuspid Valve Normal tricuspid valve. Aortic Valve Trisinus/trileaflet aortic valve. Pulmonic Valve Normal pulmonic valve. Great Vessels Calcified aortic root. The pulmonary artery is normal size. Normal inferior vena cava. Pericardium/Pleural No pericardial effusion. MMode/2D Measurements & Calculations LVIDd: 5.6 cm IVSd: 1.0 cm Ao root diam: 3.6 cm LVIDs: 4.4 cm LVPWd: 1.0 cm RVDd: 3.4 cm FS: 21.1 % LAV(MOD-bp): 73.0 ml LA A4 area: 23.8 cm2 LA dimension(2D): 5.0 cm LAV(MOD-bp) Indexed: 39.0 ml/m2 LAV(MOD-sp2): 69.3 ml LAV(MOD-sp4): 68.3 ml RA A4 area: 15.6 cm2 Time Measurements MV dec time: 0.17 sec Doppler Measurements & Calculations MV E max [place]: 116.6 cm/sec Lat Peak E' [place]: 10.5 cm/sec Med Peak E' [place]: 4.7 cm/sec MV A max [place]: 58.1 cm/sec E/E' lat: 11.1 E/E' med: 24.9 MV E/A: 2.0 Ao V2 max: 132.9 cm/sec LV V1 max: 82.5 cm/sec PA V2 max: 117.5 cm/sec Ao max P.1 mmHg LV V1 max P.7 mmHg ECHO/Echo Complete Interpretation Summary Normal LV size. The estimated ejection fraction is 47 %. There is mild global hypokinesis of the left ventricle. Stage 2 diastolic dysfunction. Copmared to the previous the pulmonary pressures are better. Ordering Physician: Jonel Winchester Referring Physician: Nia Uriostegui Performed By: Alda Kebede, NEREYDA, RVT
[2020-06-08 11:52] LABS: Anion Gap 5 (5-15); BUN 25 mg/dL (7-18); BUN/Creat Ratio 15.4 RATIO (10-20); Calcium,Total 9.5 mg/dL (8.5-10.1); Chloride 104 mmol/L (98-107); Creatinine, Serum 1.62 mg/dL (0.55-1.02); EST Glomerular Filtration Rate 33 mL/min (>60); Est Glom Filt Rate - Afr Amer 39 mL/min (>60); Glucose 124 mg/dL (74-106); Sodium Level 139 mmol/L (136-145)
== END ==
PROVIDERS: PCP Internal Medicine; Referring Provider Internal Medicine Cardiovascular Disease; Visit Provider Internal Medicine Cardiovascular Disease
DX: I25.10 Atherosclerotic heart disease of native coronary artery without angina pectoris (principal); Z95.1 Presence of aortocoronary bypass graft
CPT/HCPCS: 36415; 80048; 93306

== ENCOUNTER → 2020-07-06 11:34 | Outpatient (CLI) | payer MEDICARE, OTHER, SELFPAY ==
[2020-06-15 13:50] VITALS: BMI 32.7
[2020-07-06 13:07] LABS: Anion Gap 6 (5-15); BUN 21 mg/dL (7-18); BUN/Creat Ratio 13.4 RATIO (10-20); Calcium,Total 9.1 mg/dL (8.5-10.1); Chloride 108 mmol/L (98-107); Creatinine, Serum 1.57 mg/dL (0.55-1.02); EST Glomerular Filtration Rate 34 mL/min (>60); Est Glom Filt Rate - Afr Amer 41 mL/min (>60); Glucose 103 mg/dL (74-106); Sodium Level 141 mmol/L (136-145)
== END ==
PROVIDERS: PCP Internal Medicine; Referring Provider Physician Assistant Medical; Visit Provider Physician Assistant Medical
DX: I10 Essential (primary) hypertension (principal)
CPT/HCPCS: 36415; 80048

== ENCOUNTER 2020-12-08 02:43 | Inpatient (IN) | payer MEDICARE, OTHER, SELFPAY ==
[2020-12-08] VITALS (29 sets, daily range): BP systolic 100–147; BP diastolic 64–124; PULSE 78–168; RESP 14–27; TEMP 36.4–36.8; O2SAT 92–99; BMI 31.4; BMI 30.7
--- NOTE | 2020-12-08 02:56 | RAD_ITS ---
STUDY: X-RAY CHEST REASON FOR EXAM: Female, 80 years old. chest pain TECHNIQUE: COMPARISON: None. FINDINGS: The lungs are clear and expanded. There is no demonstrated pleural abnormality. Sternal cerclage wires are present from a prior sternotomy. Normal mediastinum and emil. There is prominence of the pulmonary hilar arteries without peripheral pulmonary vascular congestion, suggesting pulmonary hypertension. Markedly tortuous descending aorta. There are diffuse degenerative changes of the visualized thoracic spine. Normal visualized ribs, clavicles, and shoulders. There is no demonstrated abnormality of the visualized soft tissue structures of the upper abdomen. RAD/Chest 1 View (Portable) IMPRESSION: Moderate cardiomegaly. Possible pulmonary hypertension. Electronically Signed: Anna Felix MD at 4:16 EDT Tel , Service support ,
--- NOTE | 2020-12-08 02:57 | EKG12_ITS ---
Test Reason : CP Blood Pressure : / mmHG Vent. Rate : 168 BPM Atrial Rate : 079 BPM P-R Int : 000 ms QRS Dur : 128 ms QT Int : 308 ms P-R-T Axes : 000 -54 115 degrees QTc Int : 514 ms Wide QRS tachycardia : Consider SVT with aberrancy Left axis deviation Non-specific intra-ventricular conduction block Abnormal ECG Confirmed by ZARA ROSAS, DWIGHT ([id number]), society editor BRYAN CHAVARRIA ([id number]) on 12/08/2020 1:45:42 PM Referred By: CARMELINA Confirmed By:DWIGHT ZUÑIGA MD
--- NOTE | 2020-12-08 02:58 | EDS_ITS ---
HPI History of Present Illness Chief Complaint: Palpitations Narrative Narrative: Patient awoke 1 to 2 hours ago feeling poorly, some lightheadedness, and mild midsternal chest dull discomfort. The chest discomfort is no longer present, but she still feels poorly. She checked her blood pressure, couple times it was in the 120s and once it was in the 80s. Her heart rate was fast but she does not feel palpitations. She states she had A. fib in the past and she would feel the palpitations and her heart rate was over 200 at that time. She is anticoagulated on Eliquis. She denies any recent illness. [facility] Medical History Acute on chronic anemia Asthma Atherosclerotic heart disease of [place] coronary artery without angina pectoris Atrial enlargement, left Benign paroxysmal positional vertigo Benign positional vertigo Bruit (arterial) Chronic combined systolic and diastolic CHF (congestive heart failure) Colon polyps COVID-19 virus detected (02/26/20) Diabetes mellitus type 2 in obese Essential (primary) hypertension GERD (gastroesophageal reflux disease) Gout Gout Grade II diastolic dysfunction History of non-ST elevation myocardial infarction (NSTEMI) (04/2017) HLD (hyperlipidemia) Injury of femoral artery Iron deficiency anemia refractory to iron therapy Left bundle branch block Lower GI bleed (03/2019) Meningioma New onset atrial flutter (09/29/17) Non-ischemic cardiomyopathy Non-rheumatic tricuspid valve insufficiency Non-ST elevation myocardial infarction (NSTEMI) due to mismatch of myocardial oxygen supply and demand (11/2016) Obesity Other cerebral infarction Paroxysmal atrial fibrillation Paroxysmal atrial flutter Partial symptomatic epilepsy with complex partial seizures, intractable, 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 Pseudoaneurysm following procedure Secondary pulmonary arterial hypertension SOB (shortness of breath) Home Medications montelukast 10 mg PO DAILY 08/24/17 [History Last Taken 03/25/19] nitroglycerin 0.4 mg SUBLINGUAL Q5M PRN 08/24/17 [History Last Taken Unknown] albuterol sulfate 90 mcg/actuation aerosol inhaler 1 puff INHALATION Q4H PRN 04/09/18 [History Last Taken Unknown] linagliptin 5 mg tablet 5 mg PO DAILY 04/09/18 [History Last Taken 03/26/19] metformin 500 mg tablet,extended release 24 hr 1,000 mg PO BID tab 05/14/18 [History Last Taken 03/26/19] allopurinol 300 mg tablet 300 mg PO DAILY tab 02/09/19 [History Last Taken 03/26/19] cholecalciferol (vitamin D3) 1,000 unit PO DAILY 03/26/19 [History Last Taken ] lansoprazole 30 mg PO DAILY 03/26/19 [History Last Taken 03/26/19] aspirin 81 mg tablet,delayed release 81 mg PO QDAY #30 tab 04/13/19 [Rx Last Taken Unknown] olmesartan 40 mg tablet 40 mg PO DAILY tab 11/11/19 [History Last Taken Unknown] insulin detemir U-100 100 unit/mL (3 mL) subcutaneous pen 23 unit SC DAILY ml 11/30/19 [History Last Taken Unknown] methscopolamine 5 mg tablet 5 mg PO QHS 11/30/19 [History Last Taken Unknown] atorvastatin 40 mg tablet 40 mg PO .QOD tablet 05/18/20 [History Last Taken Unknown] magnesium oxide 400 mg (241.3 mg magnesium) tablet 400 mg PO DAILY tablet 05/18/20 [History Last Taken Unknown] amlodipine 5 mg tablet 5 mg PO DAILY #90 tab 06/19/20 [Rx Last Taken Unknown] furosemide 80 mg tablet 80 mg PO .COMPLEX #90 tab 08/03/20 [Rx Last Taken Unkno wn] carvedilol 6.25 mg tablet 6.25 mg PO BID #60 tab 11/21/20 [Rx Last Taken Unknown] albuterol sulfate [ProAir HFA] 2 puff INHALATION Q6H PRN 12/08/20 [History Last Taken Unknown] Allergy/AdvReac Type Severity Reaction Status Date / Time lisinopril AdvReac cough Verified 12/08/20 02:51 Family History Father CAD (coronary artery disease) Hypertension Cancer skin Mother CAD (coronary artery disease) Hypertension Diabetes Brother CAD (coronary artery disease) Sister CAD (coronary artery disease) Myocardial infarction Surgical History H/O cardiac radiofrequency ablation H/O coronary artery bypass surgery (08/06/04) H/O craniotomy (2008) History of ankle surgery History of cardioversion (09/29/17) History of colonoscopy History of hysterectomy History of left heart catheterization (LHC) (11/25/16) History of radiofrequency ablation procedure for cardiac arrhythmia (12/04/17) History of tonsillectomy Social History Smoking Status: Never smoker alcohol intake: never substance use type: does not use diet: diabetic caffeine: Yes Type: carbonated beverages and tea what type of physical activity do you participate in: none seatbelt use: always do you feel safe at home: Yes ROS ROS ED Constitutional Constitutional ED: Reports fatigue and malaise; Denies body ache(s), chills, fever(s) or headache(s) Eyes Eyes: Denies change in vision or diplopia ENT ENT ED: Denies rhinorrhea or sore throat Cardiovascular Cardiovascular: Reports as per HPI, arrhythmia on telemetry and chest pain; Denies palpitations Respiratory/Chest Respiratory/Chest: Denies cough or dyspnea Gastrointestinal Gastrointestinal: Denies abdominal pain, diarrhea, nausea or vomiting Genitourinary Genitourinary ED: Denies dysuria or hematuria Musculoskeletal Musculoskeletal: Denies back pain or neck pain Integumentary Denies abscess or rash Neurologic Neurologic: Denies headache(s), paresthesias or weakness Psychiatric Psychiatric: Denies anxiety or suicidal thoughts EXAM Physical Exam Const Vital Signs: 12/08/20 02:44 12/08/20 03:15 12/08/20 03:39 Temperature 98.0 F Temperature Source Oral Pulse Rate 168 H 156 H 166 H Respiratory Rate 18 25 H 24 H Blood Pressure 147/100 H 113/74 120/75 Blood Pressure Mean 115 87 90 Pulse Ox 98 93 94 Oxygen Delivery Method Room Air Room Air Oxygen Flow Rate (L/min) 12/08/20 03:54 12/08/20 04:00 12/08/20 04:05 Temperature Temperature Source Pulse Rate 166 H 167 H Respiratory Rate 25 H 16 14 Blood Pressure 101/73 101/78 Blood Pressure Mean 82 85 Pulse Ox 94 95 Oxygen Delivery Method Oxygen Flow Rate (L/min) 12/08/20 04:19 12/08/20 04:25 Temperature 97.9 F Temperature Source Temporal Pulse Rate 166 H 165 H Respiratory Rate 18 16 Blood Pressure 101/72 101/72 Blood Pressure Mean 81 81 Pulse Ox 94 95 Oxygen Delivery Method Room Air Nasal Cannula Oxygen Flow Rate (L/min) 2 Positive well nourished and well developed General Appearance ED: well developed and NAD HEENT Reports moist mucous membranes normocephalic and atraumatic Eyes PERRL and EOMs intact bilaterally Neck full ROM and supple Resp normal respiratory effort and clear to auscultation bilaterally Cardio regular rate and no murmurs Rate: tachycardic GI non-tender and non-distended Auscultation: normoactive bowel sounds Palpation: soft Back/Spine no CVA tenderness General Back: other FROM Extremity normal to inspection General Extremety ED: Yes edema; Negative for pulses abnormal or tenderness General Extremity: edema bilateral lower extremity Details: mild (symmetric pitting); Negative for pulses abnormal Neuro oriented x3, CN's II-XII intact bilaterally and no sensory deficits noted Sensorium / Orientation: awake and alert Motor Exam: strength 5/5 throughout Skin no rashes or lesions noted and no wounds Heart Score History: Moderately Suspicious ECG: Nonspecific Repolarization Age: >/= 65 years Risk Factors: >/= 3 Risk Factors or History of CAD Troponin: </= Normal Limit Score: 6 MDM MDM MDM Narrative Medical decision making narrative: Given that the patient had a pre-existing aberrancy, I initially attempted treating his wide-complex tachycardia with a modified Valsalva maneuver, it did not do anything and the patient had no adverse events. We then tried with adenosine 6 mg, she had a temporary slow down of the rate and rhythm, there were a couple of irregular beats during this, and then it picked right back up to the 168 that she was at before, with no adverse events. This is suspicious for rapid A. fib or atrial flutter. Patient has a history of both. She was then given Cardizem 10 mg bolus since her blood pressure is around 118 and watched carefully. This was followed by drip since her heart rate did not go much below 150s, and this really did not affect things very much although clinically she was stable. I discussed with Dr. Villanueva cardiology, and discussed the fact that in 2018 she had a successful catheter ablation since amiodarone was not controlling her rhythm well, and the patient states she has had few problems since then. He recommends starting her on amiodarone 150 followed by drip, and discontinuing the Cardizem and admitting the patient rather than cardioverting her here in the emergency department. Lab Data Attestation: I reviewed the patient's lab results. Labs: Laboratory Results - last 24 hr 12/08/20 12/08/20 12/08/20 02:48 02:48 02:48 WBC 11.6 H RBC 4.21 Hgb 12.4 Hct 37.5 MCV 89.1 MCH 29.5 MCHC 33.1 RDW Std Deviation 47.2 H RDW Coeff of Kelechi 14.6 Plt Count 258 MPV 10.3 Immature Gran % (Auto) 0.600 Neut % (Auto) 69.0 Lymph % (Auto) 19.5 [place]eller % (Auto) 8.9 Eos % (Auto) 1.6 Baso % (Auto) 0.4 Absolute Neuts (auto) 8.0 H Absolute Lymphs (auto) 2.26 Nucleated RBC % 0 Sodium 139 Potassium 3.2 L Chloride 103 Carbon Dioxide 24.0 Anion Gap 12 BUN 27 H Creatinine 1.72 H Estim Creat Clear Calc 23.47 Est GFR (MDRD) Af Amer 37 L Est GFR (MDRD) Non-Af 30 L BUN/Creatinine Ratio 15.7 Glucose 173 H Calcium 9.1 Troponin I High Sens 39 B-Natriuretic Peptide 147.0 H Radiography Diagnostic Testing: Clinical Impression(s) from Imaging Studies Chest X-Ray 12/08/20 02:56 IMPRESSION: Moderate cardiomegaly. Possible pulmonary hypertension. Electronically Signed: Anna Felix MD at 4:16 EDT Tel , Service support , EKG Initial EKG: Attestation: I personally reviewed and interpreted this EKG as follows: Interpretation: LBBB Comments: Wide-complex tachycardia at 168 Prior EKG tracings: available for review (Pre-existing aberrancy/LBBB with same complex morphology, sinus rhythm) Critical Care Time Critical Care Time: Yes Critical care time (excluding procedures): 30-74 minutes (40), Including time spent:, Discussing w/Patient &/or Family/[facility] Experience Strategy, Discussing w/Consultants, Arranging Admission or Transfer and Performing Direct Patient Care at Bedside Discharge Plan Dx/Rx/DC Orders Clinical Impression: Wide-complex tachycardia, Chest pain Disposition Disposition: Acute Care Hospital [facility]
[2020-12-08 03:06] LABS: Absolute Lymphocyte Count 2.26 X10^3/uL (0.83-4.51); Basophil# 0.05 X10^3/uL; Basophil% 0.4 % (0-1); Eosinophil# 0.18 X10^3/uL; Eosinophils% 1.6 % (0-5); Hematocrit 37.5 % (37-47); Hemoglobin 12.4 g/dL (12.0-15.0); Lymphocyte # 2.26 X10^3/ul (0.83-4.51); Lymphocyte % 19.5 % (19-41); Mean Corp Hgb Conc 33.1 g/dL (32-36); Mean Corpuscular Hgb 29.5 pg (27.0-32.0); Mean Corpuscular Volume 89.1 fL (81-99); Mean Platelet Vol. 10.3 fl (6.2-12.0); Monocyte# 1.03 X10^3/uL; Monocyte% 8.9 % (0-10); NRBC Flagged by Analyzer 0 % (0-5); Neutrophil # 7.99 X10^3/uL (2.7-7.7); Platelet Count 258 K/mm3 (150-450); RBC Distribution Width CV 14.6 % (11.6-14.6); RBC Distribution Width SD 47.2 fl (35.1-43.9); Red Blood Count 4.21 M/mm3 (4.2-5.4); White Blood Count 11.6 K/mm3 (4.4-11.0)
[2020-12-08] MEDS: Adenosine 6 MG/2 ML Syringe IV (03:06)
[2020-12-08] MEDS: dilTIAZem 25 MG/5 ML Vial 10 MG IV BOLUS (03:11)
[2020-12-08 03:19] LABS: Anion Gap 12 (5-15); BUN 27 mg/dL (7-18); BUN/Creat Ratio 15.7 RATIO (10-20); Calcium,Total 9.1 mg/dL (8.5-10.1); Chloride 103 mmol/L (98-107); Creatinine, Serum 1.72 mg/dL (0.55-1.02); EST Glomerular Filtration Rate 30 mL/min (>60); Est Glom Filt Rate - Afr Amer 37 mL/min (>60); Estimated Creatinine Clearance 23.47 ml/min; Glucose 173 mg/dL (74-106); Potassium 3.2 mmol/L (3.5-5.1); Sodium Level 139 mmol/L (136-145); Troponin-I HS 39 pg/mL (3.0-54.0)
--- NOTE | 2020-12-08 04:43 | PCM.HP.STD ---
[facility] - General General Date of Admission: 12/08/20 Date of Service: 12/08/20 Chief Complaint: Lightheadedness HPI Narrative COMFORT HU, is a 80 F with a significant history of diastolic and systolic heart failure; and atrial fibrillation who presents to the Emergency Department with light headedness that started about a week ago and worsened on the night of presentation. Because patient has a history of a vertigo she attributed her symptoms to vertigo and was started on meclizine 4 days before presentation. Associated with her symptoms 'cold sweat', malaise and dull chest pain. She has baseline asthma and shortness of breath that has increased ever since she had COVID-19 infection in February 2020. She reports a chronic cough. At the emergent department patient was found to have a wide-complex tachycardia. Valsalva maneuver was tried without any improvements. Also adenosine; and Cardizem bolus and drip was tried without any real improvement. In the past patient have had 5 cardioversions and ablation. Emergent part doctor discussed the case with cardiology who recommended the patient stay at the hospital and be started on amiodarone infusion. [facility] Medical History Acute on chronic anemia Asthma Atherosclerotic heart disease of [place] coronary artery without angina pectoris Atrial enlargement, left Benign paroxysmal positional vertigo Benign positional vertigo Bruit (arterial) Chronic combined systolic and diastolic CHF (congestive heart failure) Colon polyps COVID-19 virus detected (02/26/20) Diabetes mellitus type 2 in obese Essential (primary) hypertension GERD (gastroesophageal reflux disease) Gout Gout Grade II diastolic dysfunction History of non-ST elevation myocardial infarction (NSTEMI) (04/2017) HLD (hyperlipidemia) Injury of femoral artery Iron deficiency anemia refractory to iron therapy Left bundle branch block Lower GI bleed (03/2019) Meningioma New onset atrial flutter (09/29/17) Non-ischemic cardiomyopathy Non-rheumatic tricuspid valve insufficiency Non-ST elevation myocardial infarction (NSTEMI) due to mismatch of myocardial oxygen supply and demand (11/2016) Obesity Other cerebral infarction Paroxysmal atrial fibrillation Paroxysmal atrial flutter Partial symptomatic epilepsy with complex partial seizures, intractable, with status epilepticus 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 Pseudoaneurysm following procedure Secondary pulmonary arterial hypertension SOB (shortness of breath) Home Medications montelukast 10 mg PO DAILY 08/24/17 [History Last Taken 03/25/19] nitroglycerin 0.4 mg SUBLINGUAL Q5M PRN 08/24/17 [History Last Taken Unknown] albuterol sulfate 90 mcg/actuation aerosol inhaler 1 puff INHALATION Q4H PRN 04/09/18 [History Last Taken Unknown] linagliptin 5 mg tablet 5 mg PO DAILY 04/09/18 [History Last Taken 03/26/19] metformin 500 mg tablet,extended release 24 hr 1,000 mg PO BID tab 05/14/18 [History Last Taken 03/26/19] allopurinol 300 mg tablet 300 mg PO DAILY tab 02/09/19 [History Last Taken 03/26/19] cholecalciferol (vitamin D3) 1,000 unit PO DAILY 03/26/19 [History Last Taken 03/26/19] lansoprazole 30 mg PO DAILY 03/26/19 [History Last Taken 03/26/19] aspirin 81 mg tablet,delayed release 81 mg PO QDAY #30 tab 04/13/19 [Rx Last Taken Unknown] olmesartan 40 mg tablet 40 mg PO DAILY tab 11/11/19 [History Last Taken Unknown] insulin detemir U-100 100 unit/mL (3 mL) subcutaneous pen 23 unit SC DAILY ml 11/30/19 [History Last Taken Unknown] methscopolamine 5 mg tablet 5 mg PO BID 11/30/19 [History Last Taken Unknown] atorvastatin 40 mg tablet 40 mg PO .QOD tablet 05/18/20 [History Last Taken Unknown] magnesium oxide 400 mg (241.3 mg magnesium) tablet 400 mg PO DAILY tablet 05/18/20 [History Last Taken Unknown] amlodipine 5 mg tablet 5 mg PO DAILY #90 tab 06/19/20 [Rx Last Taken Unknown] furosemide 80 mg tablet 80 mg PO .COMPLEX #90 tab 08/03/20 [Rx Last Taken Unknown] carvedilol 6.25 mg tablet 6.25 mg PO BID #60 tab 11/21/20 [Rx Last Taken Unknown] albuterol sulfate [ProAir HFA] 2 puff INHALATION Q6H PRN 12/08/20 [History Last Taken Unknown] Allergy/AdvReac Type Severity Reaction Status Date / Time lisinopril AdvReac cough Verified 12/08/20 02:51 Family History Father CAD (coronary artery disease) Hypertension Cancer skin Mother CAD (coronary artery disease) Hypertension Diabetes Brother CAD (coronary artery disease) Sister CAD (coronary artery disease) Myocardial infarction Surgical History H/O cardiac radiofrequency ablation H/O coronary artery bypass surgery (08/06/04) H/O craniotomy (2008) History of ankle surgery History of cardioversion (09/29/17) History of colonoscopy History of hysterectomy History of left heart catheterization (LHC) (11/25/16) History of radiofrequency ablation procedure for cardiac arrhythmia (12/04/17) History of tonsillectomy Social History Smoking Status: Never smoker alcohol intake: never substance use type: does not use diet: diabetic caffeine: Yes Type: carbonated beverages and tea what type of physical activity do you participate in: none seatbelt use: always do you feel safe at home: Yes ROS ROS Narrative Constitutional: Denies fever, chills, fatigue, anorexia and change in weight Eyes: Denies blurry vision, change in eye color, change in vision, discharge from eye(s), double vision, erythema, eye pain, loss of vision or other HEENT: Denies abnormal hearing, dysphagia, ear pain, epistaxis, headache(s), hearing loss, nasal congestion, nasal discharge, post nasal drip, sinus pressure, sore throat or other Cardiovascular: Denies chest pain or palpitations. Denies dyspnea on exertion, orthopnea and paroxysmal nocturnal dyspnea Respiratory/Chest: Reports dry cough. Reports shortness of breath Gastrointestinal: Denies abdominal pain, coffee ground emesis, constipation, diarrhea, dyspepsia, hematemesis, hematochezia, loose stools, melena, nausea, vomiting or other Genitourinary: Denies burning urination, difficulty urinating, dysuria, hematuria, nocturia, urinary frequency, urinary hesitancy, urinary incontinence, urinary urgency or other Musculoskeletal: Denies arthralgias, back pain, joint pain, joint stiffness, joint swelling, myalgias, neck pain or other Neurologic: Denies abnormal gait, abnormal speech, confusion, disequilibrium, focal weakness, headache(s), numbness, paresthesias, seizure-like activity, seizures, syncope, tingling, tremor(s) or other Psychiatric: Denies anxiety, depression, homicidal ideation, suicidal ideation or other Endocrinology: Denies change in body appearance, cold intolerance, heat intolerance, polydipsia, polyuria or other Hematologic/Lymphatic: Denies anemia, easy bleeding, easy bruising, lymphadenopathy or other Integumentary: Denies rashes Allergic/Immunologic: Denies rhinitis, hives, eczema, asthma or other Vital Signs Vital Signs Vital Signs: 12/08/20 02:44 12/08/20 03:15 12/08/20 03:39 Temperature 98.0 F Temperature Source Oral Pulse Rate 168 H 156 H 166 H Respiratory Rate 18 25 H 24 H Blood Pressure 147/100 H 113/74 120/75 Blood Pressure Mean 115 87 90 Pulse Ox 98 93 94 Oxygen Delivery Method Room Air Room Air Oxygen Flow Rate (L/min) 12/08/20 03:54 12/08/20 04:00 12/08/20 04:05 Temperature Temperature Source Pulse Rate 166 H 167 H Respiratory Rate 25 H 16 14 Blood Pressure 101/73 101/78 Blood Pressure Mean 82 85 Pulse Ox 94 95 Oxygen Delivery Method Oxygen Flow Rate (L/min) 12/08/20 04:19 12/08/20 04:25 12/08/20 04:39 Temperature 97.9 F Temperature Source Temporal Pulse Rate 166 H 165 H 160 H Respiratory Rate 18 16 24 H Blood Pressure 101/72 101/72 100/64 Blood Pressure Mean 81 81 76 Pulse Ox 94 95 Oxygen Delivery Method Room Air Nasal Cannula Oxygen Flow Rate (L/min) 2 Weight Weight: 85.7 kg Body Mass Index (BMI) 31.4 Physical Exam Narrative Physical exam: General: Well-nourished, well-developed. Head: Normocephalic, atraumatic, no tenderness Eyes: PERRLA, EOMI ENT, no trauma, moist mucous membranes, no rhinorrhea Neck: Nontender, full range of motion, no spinal tenderness, deformities, step-off CVS: Tachycardia. S1-S2 present. No murmur, gallop or rub. Respiratory : clear to auscultation bilaterally, chest wall nontender, no wheezing Abdomen: Soft, nontender, nondistended, normal bowel sounds, no masses : Deferred Back: Nontender, no CVA tenderness, no midline spinal tenderness, deformities, step-offs Extremities: Nontender full range of motion, no trauma Skin: Normal color, no trauma, abrasions Neuro: Alert, oriented, cranial nerves II through XII grossly intact. Psychiatry: Normal mood. Normal affect. Not depressed. Not anxious. Results Lab / Micro Data Result Diagrams: 12/08/20 02:48 12/08/20 02:48 Labs: Laboratory Results - last 24 hr 12/08/20 02:48: WBC 11.6 H, RBC 4.21, Hgb 12.4, Hct 37.5, MCV 89.1, MCH 29.5, MCHC 33.1, RDW Std Deviation 47.2 H, RDW Coeff of Kelechi 14.6, Plt Count 258, MPV 10.3, Immature Gran % (Auto) 0.600, Neut % (Auto) 69.0, Lymph % (Auto) 19.5, [place] % (Auto) 8.9, Eos % (Auto) 1.6, Baso % (Auto) 0.4, Absolute Neuts (auto) 8.0 H, Absolute Lymphs (auto) 2.26, Nucleated RBC % 0 12/08/20 02:48: Sodium 139, Potassium 3.2 L, Chloride 103, Carbon Dioxide 24.0, Anion Gap 12, BUN 27 H, Creatinine 1.72 H, Estim Creat Clear Calc 23.47, Est GFR (MDRD) Af Amer 37 L, Est GFR (MDRD) Non-Af 30 L, BUN/Creatinine Ratio 15.7, Glucose 173 H, Calcium 9.1, Troponin I High Sens 39 12/08/20 02:48: B-Natriuretic Peptide 147.0 H Radiology Impression Chest X-Ray 12/08/20 02:56 IMPRESSION: Moderate cardiomegaly. Possible pulmonary hypertension. Electronically Signed: Anna Felix MD at 4:16 EDT Tel , Service support , Assessment & Plan Assessment/Plan (1) Wide-complex tachycardia: PLAN: Wide-complex tachycardia Chest x-ray image was independently interpreted and I agree with radiologist image above. Per discussion with the emergent department doctor and cardiology patient was started on amiodarone bolus and drip which was continued. Check magnesium and TSH. Review of Emergency department labs show potassium of 3.2. P.o. and IV potassium supplementation ordered. Cardiology consult Diabetes mellitus Patient with hyperglycemia on presentation Basal insulin adjusted. Metformin held Accu-Chek QACHS with correction scale insulin ordered. History of atrial fibrillation atrial fibrillation status post cardioversion and ablation Patient was on Eliquis at some point. At this time patient is unsure whether she is still on Eliquis. Carvedilol continued. Aspirin continued Systolic and Diastolic congestive heart failure Echocardiogram on 06/08/2020 showed estimated ejection fraction of 47% and stage II diastolic function. Continue home Lasix. Continue pratibha receptor carolyn. Continue beta-carolyn DVT Prophylaxis SCD ordered. Charges/Coding Visit Charges Inpatient E&M: 45156 Init Hosp L3
--- NOTE | 2020-12-08 05:16 | PCS.PANDOC ---
PANDEMIC DOCUMENTATION INITIATED: Date: 09/25/2020 Time: 190
[2020-12-08] MEDS: Potassium Chloride 10mEq/100mL 10 MEQ/100 ML IV.SOLN. 100 MEQ IV BOLUS (06:10)
[2020-12-08] MEDS: Carvedilol 12.5 MG Tablet PO ×2 (06:17→16:44)
[2020-12-08] MEDS: Potassium Chloride Oral Tablet 20 MEQ 40 MEQ PO ×2 (06:17→11:53)
[2020-12-08] MEDS: Insulin Lispro 100 UNIT/ML INSULN.PEN SC (06:40)
[2020-12-08] MEDS: 0.9% Saline Lock 10 ML Syringe IV (06:40)
[2020-12-08 06:41] LABS: Bedside Glucose 150 mg/dL (70-110)
[2020-12-08 06:44] LABS: Thyroid Stim Hormone (TSH) 1.69 uIU/mL (0.358-3.74)
[2020-12-08] MEDS: Potassium Chloride 10mEq/100mL 10 MEQ/100 ML IV.SOLN. 50 MEQ IV BOLUS (08:47)
[2020-12-08] MEDS: Allopurinol 300 MG Tablet PO (08:48)
[2020-12-08] MEDS: amLODIPine 5 MG Tablet PO (08:48)
[2020-12-08] MEDS: Furosemide 40 MG Tablet PO ×2 (08:48→13:32)
[2020-12-08] MEDS: Magnesium Chloride 64 MG Delay Rel.Tablet 128 MG PO (08:48)
[2020-12-08] MEDS: Losartan Potassium 100 MG Tablet PO (08:48)
[2020-12-08] MEDS: Cholecalciferol (VIT D3) 25 MCG TABLET (1,000 UNITS) PO (08:49)
[2020-12-08] MEDS: LINAGLIPTIN 5 MG TABLET PO (08:49)
[2020-12-08] MEDS: Pantoprazole Sodium 40 MG Tablet PO (08:49)
--- NOTE | 2020-12-08 08:57 | PCM.CONS.C ---
Assessment & Plan Assessment/Plan (1) Wide-complex tachycardia: PLAN: She does have a presentation with a wide-complex tachycardia which appears to be atrial fibrillation flutter with a wide apparent transmission. She has currently converted back to sinus rhythm on IV amiodarone. My recommendation is for him to continue the same and continue reduced dose of IV amiodarone. If she is still in sinus rhythm this evening she can be discharged for outpatient follow-up and to continue with p.o. amiodarone 200 mg twice daily for 2 weeks, and then 200 mg once a day (2) H/O coronary artery bypass surgery: PLAN: Patient is status post coronary bypass surgery. She has not had any angina the plan is to continue with the current medical therapy. (3) Chronic combined systolic and diastolic CHF (congestive heart failure): PLAN: She does have previous history of systolic and diastolic heart failure ejection fraction is preserved she does not appear to be in heart failure symptoms at this time we will continue to monitor her. (4) Non-ischemic cardiomyopathy: PLAN: She does have a history of nonischemic cardiomyopathy which appears to have resolved I would not suggest making any changes. (5) Paroxysmal atrial fibrillation: PLAN: She does have a history of paroxysmal atrial fibrillation. She is maintaining sinus rhythm at this time. She is anticoagulated as you know. The plan will be to start her on amiodarone. She is on carvedilol which will be continued at the current dose. (6) Essential (primary) hypertension: PLAN: Blood pressure is under good control at this particular time I would not suggest we make any changes. HPI Consult Data Date of Consult: 12/08/20 HPI Narrative HPI Narrative: COMFORT HU, is a 80 F who presents for evaluation of dizziness and some mild palpitations. She says that the symptoms started probably a week to 10 days ago when she started having some of the symptoms and she called the primary physician who put her on meclizine. It improved mildly. However she did not appear to be getting better and so presented to the emergency room. She was noted to be in a wide-complex tachycardia. She has a history of coronary artery disease status post coronary artery bypass surgery in 2004. She had a left internal mammary artery to the left anterior descending artery and second diagonal branch. She has also been plagued with a history of atrial fibrillation with a rapid ventricular response rate. Initially she had not been anticoagulated due to previous neurosurgical procedures. More recently she has been put on Eliquis and has had frequent episodes of atrial fibrillation and flutter requiring recurrent DC cardioversions. She has been on amiodarone but this has not been able to control her rhythm. She was therefore sent to [facility] for catheter ablation and she underwent successful transseptal puncture using intracardiac ultrasound and wide circumferential ablation in November 2017. Postoperatively she was continued on the aspirin as well as the apixaban and the amiodarone and metoprolol were discontinued. 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 The pseudoaneurysm was successfully thrombosed. She had been doing well on her dose of diuretics but then this was reduced because she was having some kidney dysfunction but she has noticed increased phlegm as well as shortness of breath. She did unfortunately contract Covid in February 2020. Her last echocardiogram was in 2017. She has had no neck arm or jaw discomfort to suggest angina. She was seen in the office a few weeks ago and at that time appeared to be doing well. She did have some medication changes and was scheduled to see us in the office again in a few weeks. [facility] Medical History Acute on chronic anemia Asthma Atherosclerotic heart disease of [place] coronary artery without angina pectoris Atrial enlargement, left Benign paroxysmal positional vertigo Benign positional vertigo Bruit (arterial) Chronic combined systolic and diastolic CHF (congestive heart failure) Colon polyps COVID-19 virus detected (02/26/20) Diabetes mellitus type 2 in obese Essential (primary) hypertension GERD (gastroesophageal reflux disease) Gout Gout Grade II diastolic dysfunction History of non-ST elevation myocardial infarction (NSTEMI) (04/2017) HLD (hyperlipidemia) Injury of femoral artery Iron deficiency anemia refractory to iron therapy Left bundle branch block Lower GI bleed (03/2019) Meningioma New onset atrial flutter (09/29/17) Non-ischemic cardiomyopathy Non-rheumatic tricuspid valve insufficiency Non-ST elevation myocardial infarction (NSTEMI) due to mismatch of myocardial oxygen supply and demand (11/2016) Obesity Other cerebral infarction Paroxysmal atrial fibrillation Paroxysmal atrial flutter Partial symptomatic epilepsy with complex partial seizures, intractable, 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 following procedure Secondary pulmonary arterial hypertension SOB (shortness of breath) Home Medications montelukast 10 mg PO DAILY 08/24/17 [History Last Taken 03/25/19] nitroglycerin 0.4 mg SUBLINGUAL Q5M PRN 08/24/17 [History Last Taken Unknown] albuterol sulfate 90 mcg/actuation aerosol inhaler 1 puff INHALATION Q4H PRN 04/09/18 [History Last Taken Unknown] linagliptin 5 mg tablet 5 mg PO DAILY 04/09/18 [History Last Taken 03/26/19] metformin 500 mg tablet,extended release 24 hr 1,000 mg PO BID tab 05/14/18 [History Last Taken 03/26/19] allopurinol 300 mg tablet 300 mg PO DAILY tab 02/09/19 [History Last Taken 03/26/19] cholecalciferol (vitamin D3) 1,000 unit PO DAILY 03/26/19 [History Last Taken 03/26/19] lansoprazole 30 mg PO DAILY 03/26/19 [History Last Taken 03/26/19] aspirin 81 mg tablet,delayed release 81 mg PO QDAY #30 tab 04/13/19 [Rx Last Taken Unknown] olmesartan 40 mg tablet 40 mg PO DAILY tab 11/11/19 [History Last Taken Unknown] insulin detemir U-100 100 unit/mL (3 mL) subcutaneous pen 23 unit SC DAILY ml 11/30/19 [History Last Taken Unknown] methscopolamine 5 mg tablet 5 mg PO BID 11/30/19 [History Last Taken Unknown] atorvastatin 40 mg tablet 40 mg PO .QOD tablet 05/18/20 [History Last Taken Unknown] magnesium oxide 400 mg (241.3 mg magnesium) tablet 400 mg PO DAILY tablet 05/18/20 [History Last Taken Unknown] amlodipine 5 mg tablet 5 mg PO DAILY #90 tab 06/19/20 [Rx Last Taken Unknown] furosemide 80 mg tablet 80 mg PO .COMPLEX #90 tab 08/03/20 [Rx Last Taken Unknown] carvedilol 6.25 mg tablet 6.25 mg PO BID #60 tab 11/21/20 [Rx Last Taken Unknown] albuterol sulfate [ProAir HFA] 2 puff INHALATION Q6H PRN 12/08/20 [History Last Taken Unknown] Allergy/AdvReac Type Severity Reaction Status Date / Time lisinopril AdvReac cough Verified 12/08/20 02:51 Family History Father CAD (coronary artery disease) Hypertension Cancer skin Mother CAD (coronary artery disease) Hypertension Diabetes Brother CAD (coronary artery disease) Sister CAD (coronary artery disease) Myocardial infarction Surgical History H/O cardiac radiofrequency ablation H/O coronary artery bypass surgery (08/06/04) H/O craniotomy (2008) History of ankle surgery History of cardioversion (09/29/17) History of colonoscopy History of hysterectomy History of left heart catheterization (LHC) (11/25/16) History of radiofrequency ablation procedure for cardiac arrhythmia (12/04/17) History of tonsillectomy Social History Smoking Status: Never smoker alcohol intake: never substance use type: does not use diet: diabetic caffeine: Yes Type: carbonated beverages and tea what type of physical activity do you participate in: none seatbelt use: always do you feel safe at home: Yes ROS Constitutional Constitutional: Denies fever(s) or weight loss Eyes Eyes: Reports systems reviewed and no addt'l complaints, except as documented ENT HEENT: Reports systems reviewed and no addt'l complaints, except as documented Cardiovascular Cardiovascular: Denies chest pain at rest, chest pain with activity, dyspnea at rest, dyspnea on exertion, edema, palpitations or paroxysmal nocturnal dyspnea Respiratory/Chest Respiratory/Chest: Denies dyspnea on exertion, productive cough, shortness of breath at rest or shortness of breath with exertion Gastrointestinal Gastrointestinal: Denies change in bowel habits, nausea, vomiting or weight changes Genitourinary Genitourinary: Denies difficulty urinating Musculoskeletal Musculoskeletal: Denies joint stiffness or muscle weakness Integumentary Integumentary: Denies lesions Neurologic Neurologic: Reports dizziness; Denies syncope Psychiatric Psychiatric: Denies anxiety Endocrine Endocrinology: Denies excessive sweating or fatigue Hematologic/Lymphatic Hematologic/Lymphatic: Denies anemia Allergic/Immunologic Allergic/Immunologic: Denies seasonal rhinorrhea Physical Exam Const alert, oriented x3 and no apparent distress General Appearance: cooperative HEENT hearing grossly normal bilaterally Head and Scalp: atraumatic Eyes EOMs intact bilaterally Neck General: normal visual inspection Chest inspection of chest normal and palpation of chest normal Resp normal respiratory effort Auscultation: clear to auscultation bilaterally Cardio regular rate, regular rhythm, S1 normal heart sound and S2 normal heart sound Jugular Venous Distention: JVD GI normal to inspection, nondistended, normoactive bowel sounds Extremity normal capillary refill and no pedal edema Peripheral Pulses: Yes pulses 2+ throughout and femoral pulses present Skin no rashes or lesions noted Neuro oriented x3 and CN's II-XII intact bilaterally Psych Appearance: grossly normal and appropriate Risk Stratification Risk Stratification Applicable: No Objective Data Vital Signs: Vital Signs Temp Pulse Resp BP Pulse Ox 98.3 F 80 15 117/73 99 12/08/20 06:00 12/08/20 07:00 12/08/20 07:00 12/08/20 07:00 12/08/20 07:00 Oxygen Flow Rate (L/min) 2 Oxygen Delivery Method Nasal Cannula Weight: 184 lb 15.485 oz Body Mass Index (BMI) 30.7 Intake & Output: Intake and Output for Last 24 Hours 12/06/20 12/07/20 12/08/20 23:59 23:59 23:59 Intake Total 287.35 / 287.35 Balance 287.35 / 287.35 Lab / Micro Data Result Diagrams: 12/08/20 02:48 12/08/20 02:48 Labs: Laboratory Results - last 24 hr 12/08/20 02:48: WBC 11.6 H, RBC 4.21, Hgb 12.4, Hct 37.5, MCV 89.1, MCH 29.5, MCHC 33.1, RDW Std Deviation 47.2 H, RDW Coeff of Kelechi 14.6, Plt Count 258, MPV 10.3, Immature Gran % (Auto) 0.600, Neut % (Auto) 69.0, Lymph % (Auto) 19.5, Sunflower % (Auto) 8.9, Eos % (Auto) 1.6, Baso % (Auto) 0.4, Absolute Neuts (auto) 8.0 H, Absolute Lymphs (auto) 2.26, Nucleated RBC % 0 12/08/20 02:48: Sodium 139, Potassium 3.2 L, Chloride 103, Carbon Dioxide 24.0, Anion Gap 12, BUN 27 H, Creatinine 1.72 H, Estim Creat Clear Calc 23.47, Est GFR (MDRD) Af Amer 37 L, Est GFR (MDRD) Non-Af 30 L, BUN/Creatinine Ratio 15.7, Glucose 173 H, Calcium 9.1, Troponin I High Sens 39 12/08/20 02:48: B-Natriuretic Peptide 147.0 H 12/08/20 02:48: TSH 1.69 12/08/20 06:36: POC Glucose 150 H Cardiology Labs/Tests 12/08/20 02:48: WBC 11.6 H, RBC 4.21, Hgb 12.4, Hct 37.5, MCV 89.1, MCH 29.5, MCHC 33.1, Plt Count 258, MPV 10.3, Immature Gran % (Auto) 0.600, Neut % (Auto) 69.0, Lymph % (Auto) 19.5, Sunflower % (Auto) 8.9, Eos % (Auto) 1.6, Baso % (Auto) 0.4, Absolute Neuts (auto) 8.0 H, Nucleated RBC % 0 12/08/20 02:48: Sodium 139, Potassium 3.2 L, Chloride 103, Carbon Dioxide 24.0, Anion Gap 12, BUN 27 H, Creatinine 1.72 H, Est GFR (MDRD) Af Amer 37 L, Est GFR (MDRD) Non-Af 30 L, BUN/Creatinine Ratio 15.7, Glucose 173 H, Calcium 9.1 12/08/20 02:48: B-Natriuretic Peptide 147.0 H Rhythm: EKG: Wide-complex tachycardia with a rate of approximately 163 bpm ECHO: Stress Test: Cardiac Cath: PCI: CT Surgery: Holter monitor: EPS: PPM: CXR: Chest CT Scan: Radiography Diagnostic Testing: Radiology Impression Chest X-Ray 12/08/20 02:56 IMPRESSION: Moderate cardiomegaly. Possible pulmonary hypertension. Electronically Signed: Anna Felix MD at 4:16 EDT Tel , Service support ,
--- NOTE | 2020-12-08 11:55 | CASEMGMT ---
GEOFF MATTSON assessment: Face to Face with patient for initial transition planning/care coordination assessment. RN TWILA introduced self and role at [facility], pt voices understanding and consents to assessment. Pt is sitting up in bed in no distress on room air. Pt is A/Ox4 and answers all questions appropriately. is at bedside during assessment. Care providers, pharmacy, and demographics verified. Presentation: Pt w/ chest discomfort and HR in 160's Admitting dx: Wide complex tachycardia PCP: [facility] Specialists: Jennifer pulxenia; Rico UNDER TRIMMER , neurosurg; Rah, pod; Annabella, cardio Preferred Pharmacy: [facility] Insurance: [facility] A/B, special delivery carrier/[employer] Prescription Benefit: Yes Living Will/HPOA: Pt states has LW/HPOA and is aware that they are not on file at [facility]. Pt states her , Manny Olson, is HPOA. LNOK: Manny Olson, Living Arrangements: Pt states lives with on main level of 2 story home and states no concerns at home. Pt is independent with ADL's. Transportation: Pt states drives self or drives and states no transportation concerns. DME/HHC: Pt states has a cane and grab bars. Pt states no further DME need. Pt states no hx of HHC or SNF. Pt states no concerns with going home at time of discharge. Pt is retired. Pt states does not smoke cigarettes or drink ETOH. Pt states no further concerns/needs. CM to follow for any further discharge planning/needs. Advised pt to ask for CM if any further questions/concerns/needs arise, voices understanding. Pt Goal: Home [place] GEOFF MATTSON
[2020-12-08 12:06] LABS: Bedside Glucose 136 mg/dL (70-110)
--- NOTE | 2020-12-08 12:38 | PCM.DC ---
Discharge Instructions Diet Discharge Diet: Low fat / Low cholesterol and Carb Control Diet Activity Discharge Activity: Return to Normal Activity Dressing / Incision Call your doctor if you observe: Fever of 101 or Higher, Shortness of breath, Dizziness, Fainting spells, Swelling in the ankles, Chest pain and Increased palpitations (irregular heartbeat) Follow Up Care Test Results: Test results from this visit will be discussed in further detail at your follow-up appointment, if applicable. Discharge Plan Admission Admit Date/Time: 12/08/20 04:26 Attending Provider: Ilan Graf Primary Care Provider: Nia Uriostegui Consulting Providers: Ashley Villanueva Discharge Orders/Prescriptions Prescriptions: New amiodarone 200 mg tablet 200 mg PO DAILY Qty: 60 RF: 0 Continued albuterol sulfate [ProAir HFA] 90 mcg/actuation HFA aerosol inhaler 1 puff INHALATION Q4H PRN (Reason: Wheezing) RF: 0 metformin 500 mg tablet extended release 24 hr 1,000 mg PO BID RF: 0 allopurinol 300 mg tablet 300 mg PO DAILY RF: 0 olmesartan 40 mg tablet 40 mg PO DAILY RF: 0 atorvastatin 40 mg tablet 40 mg PO .QOD RF: 0 magnesium oxide 400 mg (241.3 mg magnesium) tablet 400 mg PO DAILY RF: 0 insulin detemir U-100 100 unit/mL (3 mL) insulin pen 23 unit SC DAILY RF: 0 methscopolamine 5 mg tablet 5 mg PO BID RF: 0 nitroglycerin 0.4 MG tablet 0.4 mg SUBLINGUAL Q5M PRN (Reason: Chest Pain) RF: 0 montelukast 10 MG tablet 10 mg PO QHS RF: 0 linagliptin 5 mg tablet 5 mg PO DAILY RF: 0 lansoprazole 30 MG capsule,delayed release(DR/EC) 30 mg PO DAILY RF: 0 cholecalciferol (vitamin D3) 1,000 UNIT tablet 1,000 unit PO DAILY RF: 0 albuterol sulfate [ProAir HFA] 90 mcg/actuation Hfa Aerosol Inhaler 2 puff INHALATION Q6H PRN (Reason: Shortness Of Breath) RF: 0 aspirin 81 mg Tablet 81 mg PO QHS RF: 0 amlodipine 5 mg tablet 5 mg PO DAILY Qty: 90 RF: 6 furosemide 80 mg tablet 80 mg PO .COMPLEX Qty: 90 RF: 3 Changed carvedilol 6.25 mg tablet 12.5 mg PO BID Qty: 60 RF: 6 Referrals / Follow Up: Jonel Winchester MD [STAFF PHYSICIAN] - See Referral Note (Follow-up as previously scheduled next several weeks.) Nia Uriostegui DO [Primary Care Provider] - Within 1 Week Disposition Disposition (needs filled in before D/C Order can be placed): Home, Self Care
--- NOTE | 2020-12-08 13:10 | DS.PCM_ITS ---
Documented by User: Lui BLOOD 12/08/20 17:38 Providers Date of Admission: 12/08/20 Primary Care Physician: Dr. Nia Uriostegui, Consultations 12/08/20 05:14 Consult: Cardiology Routine Consulting Provider: Ashley Villanuvea Reason for Consult: Wide complex tachycardia EMERGENT Consult: No MD Notified: Yes Date Notified: 12/08/20 Time Notified: 06:01 Method of Notification: Verbal Reason For Visit: WIDE COMPLEX TACHYCARDIA Diagnosis Discharge Diagnosis (1) Wide-complex tachycardia: Status: Acute Code(s): I47.2 - Ventricular tachycardia (2) H/O coronary artery bypass surgery: Status: Chronic Code(s): Z95.1 - Presence of aortocoronary bypass graft (3) Chronic combined systolic and diastolic CHF (congestive heart failure): Status: Chronic Code(s): I50.42 - Chronic combined systolic (congestive) and diastolic (congestive) heart failure (4) Non-ischemic cardiomyopathy: Status: Chronic Code(s): I42.8 - Other cardiomyopathies (5) Paroxysmal atrial fibrillation: Status: Chronic Code(s): I48.0 - Paroxysmal atrial fibrillation (6) Essential (primary) hypertension: Status: Chronic Code(s): I10 - Essential (primary) hypertension Medications at Discharge Home Medications montelukast 10 mg PO QHS 08/24/17 nitroglycerin 0.4 mg SUBLINGUAL Q5M PRN 08/24/17 albuterol sulfate 90 mcg/actuation aerosol inhaler 1 puff INHALATION Q4H PRN 04/09/18 linagliptin 5 mg tablet 5 mg PO DAILY 04/09/18 metformin 500 mg tablet,extended release 24 hr 1,000 mg PO BID tab 05/14/18 allopurinol 300 mg tablet 300 mg PO DAILY tab 02/09/19 cholecalciferol (vitamin D3) 1,000 unit PO DAILY 03/26/19 lansoprazole 30 mg PO DAILY 03/26/19 olmesartan 40 mg tablet 40 mg PO DAILY tab 11/11/19 insulin detemir U-100 100 unit/mL (3 mL) subcutaneous pen 23 unit SC DAILY ml 11/30/19 methscopolamine 5 mg tablet 5 mg PO BID 11/30/19 atorvastatin 40 mg tablet 40 mg PO .QOD tablet 05/18/20 magnesium oxide 400 mg (241.3 mg magnesium) tablet 400 mg PO DAILY tablet 05/18/20 amlodipine 5 mg tablet 5 mg PO DAILY #90 tab 06/19/20 furosemide 80 mg tablet 80 mg PO .COMPLEX #90 tab 08/03/20 albuterol sulfate [ProAir HFA] 2 puff INHALATION Q6H PRN 12/08/20 amiodarone 200 mg PO DAILY #60 tab 12/08/20 aspirin 81 mg PO QHS 12/08/20 carvedilol 12.5 mg PO BID #60 tab 12/08/20 Hospital Course Summary of Care Provided Minutes Spent on Discharge: 35 Hospital Course: Disposition: Patient to discharge home. 1) wide-complex tachycardia Patient converted back to sinus rhythm on IV amiodarone. Cardiology was consulted and recommendation was to initiate p.o. amiodarone on discharge. TSH within normal limits. High-sensitivity troponins not elevated. Plan is to continue medical management and initiate IV amiodarone. 2) Diabetes mellitus Continue home diabetic regimen. 3) atrial fibrillation status post cardioversion and ablation Patient was on Eliquis at some point. At this time patient is unsure whether she is still on Eliquis. Carvedilol continued. Aspirin continued 4) systolic and Diastolic congestive heart failure Echocardiogram on 06/08/2020 showed estimated ejection fraction of 47% and stage II diastolic function. Continue home Lasix, ARB and beta-carolyn. Patient seen by uLi Rico PA-C, under the supervision of Dr. Graf. Physical Exam Narrative Patient is an 80 y/o female comfortably resting in bed, A&Ox3. Patient denies development of any new symptoms overnight and does not appear to be in acute distress. Const alert, oriented x3 and no apparent distress HEENT normocephalic, head/scalp atraumatic, hearing grossly normal bilaterally and moist oral mucous membranes Eyes PERRL, EOMs intact bilaterally and conjunctivae normal Neck no lymphadenopathy, supple and no JVD Resp normal respiratory effort, no retractions, no use of accessory muscles and clear to auscultation bilaterally Cardio regular rate, regular rhythm, no murmurs and no JVD GI normal to inspection, nondistended, normoactive bowel sounds, soft to palpation and non-tender Extremity normal to inspection, full ROM and no clubbing, cyanosis or edema Skin no rashes or lesions noted, no wounds and skin turgor normal Neuro CN's II-XII intact bilaterally Psych affect normal Weight / BMI Weight Weight: 184 lb 15.485 oz Body Mass Index (BMI) 30.7 ABG / Lab / Microbiology Data Result Diagrams: 12/08/20 02:48 12/08/20 02:48 Laboratory: Laboratory Results - last 24 hr 12/08/20 02:48: WBC 11.6 H, RBC 4.21, Hgb 12.4, Hct 37.5, MCV 89.1, MCH 29.5, MCHC 33.1, RDW Std Deviation 47.2 H, RDW Coeff of Kelechi 14.6, Plt Count 258, MPV 10.3, Immature Gran % (Auto) 0.600, Neut % (Auto) 69.0, Lymph % (Auto) 19.5, [place] % (Auto) 8.9, Eos % (Auto) 1.6, Baso % (Auto) 0.4, Absolute Neuts (auto) 8.0 H, Absolute Lymphs (auto) 2.26, Nucleated RBC % 0 12/08/20 02:48: Sodium 139, Potassium 3.2 L, Chloride 103, Carbon Dioxide 24.0, Anion Gap 12, BUN 27 H, Creatinine 1.72 H, Estim Creat Clear Calc 23.47, Est GFR (MDRD) Af Amer 37 L, Est GFR (MDRD) Non-Af 30 L, BUN/Creatinine Ratio 15.7, Glucose 173 H, Calcium 9.1, Troponin I High Sens 39 12/08/20 02:48: B-Natriuretic Peptide 147.0 H 12/08/20 02:48: TSH 1.69 12/08/20 06:36: POC Glucose 150 H 12/08/20 11:53: POC Glucose 136 H Radiography Diagnostic Testing: Radiology Impression Chest X-Ray 12/08/20 02:56 IMPRESSION: Moderate cardiomegaly. Possible pulmonary hypertension. Electronically Signed: Anna Felix MD at 4:16 EDT Tel , Service support , D/C Instructions Discharge Diet: Low fat / Low cholesterol and Carb Control Diet Call your doctor if you observe: Fever of 101 or Higher, Shortness of breath, Dizziness, Fainting spells, Swelling in the ankles, Chest pain and Increased palpitations (irregular heartbeat) Meaningful Use Info Meaningful Use Diagnoses (Choose all that apply): None applicable Discharge Plan Admission Admit Date/Time: 12/08/20 04:26 Attending Provider: Ilan Graf Primary Care Provider: Nia Uriostegui Consulting Providers: Ashley Villanueva Instructions Additional Instructions / Restrictions: Patient Problems: Patient Goals: Discharge Orders/Prescriptions Prescriptions: New amiodarone 200 mg tablet 200 mg PO DAILY Qty: 60 RF: 0 Continued albuterol sulfate [ProAir HFA] 90 mcg/actuation HFA aerosol inhaler 1 puff INHALATION Q4H PRN (Reason: Wheezing) RF: 0 metformin 500 mg tablet extended release 24 hr 1,000 mg PO BID RF: 0 allopurinol 300 mg tablet 300 mg PO DAILY RF: 0 olmesartan 40 mg tablet 40 mg PO DAILY RF: 0 atorvastatin 40 mg tablet 40 mg PO .QOD RF: 0 magnesium oxide 400 mg (241.3 mg magnesium) tablet 400 mg PO DAILY RF: 0 insulin detemir U-100 100 unit/mL (3 mL) insulin pen 23 unit SC DAILY RF: 0 methscopolamine 5 mg tablet 5 mg PO BID RF: 0 nitroglycerin 0.4 MG tablet 0.4 mg SUBLINGUAL Q5M PRN (Reason: Chest Pain) RF: 0 montelukast 10 MG tablet 10 mg PO QHS RF: 0 linagliptin 5 mg tablet 5 mg PO DAILY RF: 0 lansoprazole 30 MG capsule,delayed release(DR/EC) 30 mg PO DAILY RF: 0 cholecalciferol (vitamin D3) 1,000 UNIT tablet 1,000 unit PO DAILY RF: 0 albuterol sulfate [ProAir HFA] 90 mcg/actuation Hfa Aerosol Inhaler 2 puff INHALATION Q6H PRN (Reason: Shortness Of Breath) RF: 0 aspirin 81 mg Tablet 81 mg PO QHS RF: 0 amlodipine 5 mg tablet 5 mg PO DAILY Qty: 90 RF: 6 furosemide 80 mg tablet 80 mg PO .COMPLEX Qty: 90 RF: 3 Changed carvedilol 6.25 mg tablet 12.5 mg PO BID Qty: 60 RF: 6 Referrals / Follow Up: Jonel Winchester MD [STAFF PHYSICIAN] - See Referral Note (Follow-up as previously scheduled next several weeks.) Nia Uriostegui DO [Primary Care Provider] - Within 1 Week Disposition Disposition (needs filled in before D/C Order can be placed): Home, Self Care Documented by User: Dr. Ilan Graf MD 12/09/20 13:33 Providers Date of Admission: 12/08/20 Reason For Visit: WIDE COMPLEX TACHYCARDIA Medications at Discharge Home Medications montelukast 10 mg PO QHS 08/24/17 nitroglycerin 0.4 mg SUBLINGUAL Q5M PRN 08/24/17 albuterol sulfate 90 mcg/actuation aerosol inhaler 1 puff INHALATION Q4H PRN 04/09/18 linagliptin 5 mg tablet 5 mg PO DAILY 04/09/18 metformin 500 mg tablet,extended release 24 hr 1,000 mg PO BID tab 05/14/18 allopurinol 300 mg tablet 300 mg PO DAILY tab 02/09/19 cholecalciferol (vitamin D3) 1,000 unit PO DAILY 03/26/19 lansoprazole 30 mg PO DAILY 03/26/19 olmesartan 40 mg tablet 40 mg PO DAILY tab 11/11/19 insulin detemir U-100 100 unit/mL (3 mL) subcutaneous pen 23 unit SC DAILY ml 11/30/19 methscopolamine 5 mg tablet 5 mg PO BID 11/30/19 atorvastatin 40 mg tablet 40 mg PO .QOD tablet 05/18/20 magnesium oxide 400 mg (241.3 mg magnesium) tablet 400 mg PO DAILY tablet 05/18/20 amlodipine 5 mg tablet 5 mg PO DAILY #90 tab 06/19/20 furosemide 80 mg tablet 80 mg PO .COMPLEX #90 tab 08/03/20 albuterol sulfate [ProAir HFA] 2 puff INHALATION Q6H PRN 12/08/20 amiodarone 200 mg PO DAILY #60 tab 12/08/20 aspirin 81 mg PO QHS 12/08/20 carvedilol 12.5 mg PO BID #60 tab 12/08/20 ABG / Lab / Microbiology Data Result Diagrams: 12/08/20 02:48 12/08/20 02:48 Discharge Plan Admission Admit Date/Time: 12/08/20 04:26 Attending Provider: Ilan Graf Primary Care Provider: Nia Uriostegui Consulting Providers: Ashley Villanueva Instructions Additional Instructions / Restrictions: Patient Problems: Patient Goals: Discharge Orders/Prescriptions Prescriptions: New amiodarone 200 mg tablet 200 mg PO DAILY Qty: 60 RF: 0 Continued albuterol sulfate [ProAir HFA] 90 mcg/actuation HFA aerosol inhaler 1 puff INHALATION Q4H PRN (Reason: Wheezing) RF: 0 metformin 500 mg tablet extended release 24 hr 1,000 mg PO BID RF: 0 allopurinol 300 mg tablet 300 mg PO DAILY RF: 0 olmesartan 40 mg tablet 40 mg PO DAILY RF: 0 atorvastatin 40 mg tablet 40 mg PO .QOD RF: 0 magnesium oxide 400 mg (241.3 mg magnesium) tablet 400 mg PO DAILY RF: 0 insulin detemir U-100 100 unit/mL (3 mL) insulin pen 23 unit SC DAILY RF: 0 methscopolamine 5 mg tablet 5 mg PO BID RF: 0 nitroglycerin 0.4 MG tablet 0.4 mg SUBLINGUAL Q5M PRN (Reason: Chest Pain) RF: 0 montelukast 10 MG tablet 10 mg PO QHS RF: 0 linagliptin 5 mg tablet 5 mg PO DAILY RF: 0 lansoprazole 30 MG capsule,delayed release(DR/EC) 30 mg PO DAILY RF: 0 cholecalciferol (vitamin D3) 1,000 UNIT tablet 1,000 unit PO DAILY RF: 0 albuterol sulfate [ProAir HFA] 90 mcg/actuation Hfa Aerosol Inhaler 2 puff INHALATION Q6H PRN (Reason: Shortness Of Breath) RF: 0 aspirin 81 mg Tablet 81 mg PO QHS RF: 0 amlodipine 5 mg tablet 5 mg PO DAILY Qty: 90 RF: 6 furosemide 80 mg tablet 80 mg PO .COMPLEX Qty: 90 RF: 3 Changed carvedilol 6.25 mg tablet 12.5 mg PO BID Qty: 60 RF: 6 Referrals / Follow Up: Jonel Winchester MD [STAFF PHYSICIAN] - See Referral Note (Follow-up as previously scheduled next several weeks.) Nia Uriostegui DO [Primary Care Provider] - Within 1 Week Disposition Disposition (needs filled in before D/C Order can be placed): Home, Self Care Charges/Coding Addendum Addendum: Dr. Graf: I personally reviewed the chart and examined the patient, and agree with the above findings. 80-year-old female who presented to the hospital in A. fib with RVR with right apparent transmission as it was initially thought to be a wide- complex tachycardia. She was started on amiodarone IV and she converted to normal sinus rhythm. Cardiology recommended discharge at 6 PM if she remained in normal sinus rhythm. She did and denied any further episodes of lightheadedness or any chest pain. She does have a follow-up appoint with cardiology already set up and she was discharged on amiodarone p.o. 200 mg twice daily for 2 weeks and then 200 mg p.o. daily after that. Given that cardiology had cleared her for discharge and that she wanted to go home she was discharged home with outpatient follow-up. Visit Charges Inpatient E&M: 46757 Disch Hosp
--- NOTE | 2020-12-08 13:10 | PCM.PN.HOSP ---
Objective Data Objective Data Vital Signs: Vital Signs Temp Pulse Resp BP Pulse Ox 97.5 F L 83 23 H 132/71 H 95 12/08/20 09:00 12/08/20 10:00 12/08/20 10:00 12/08/20 10:00 12/08/20 10:00 Oxygen Flow Rate (L/min) 2 Oxygen Delivery Method Room Air Weight: 184 lb 15.485 oz Body Mass Index (BMI) 30.7 Intake & Output: Intake and Output for Last 24 Hours 12/06/20 12/07/20 12/08/20 23:59 23:59 23:59 Intake Total 473.70 / 473.70 Balance 473.70 / 473.70 Lab / Micro Data Result Diagrams: 12/08/20 02:48 12/08/20 02:48 Labs: Laboratory Results - last 24 hr 12/08/20 02:48: WBC 11.6 H, RBC 4.21, Hgb 12.4, Hct 37.5, MCV 89.1, MCH 29.5, MCHC 33.1, RDW Std Deviation 47.2 H, RDW Coeff of Kelechi 14.6, Plt Count 258, MPV 10.3, Immature Gran % (Auto) 0.600, Neut % (Auto) 69.0, Lymph % (Auto) 19.5, [place] % (Auto) 8.9, Eos % (Auto) 1.6, Baso % (Auto) 0.4, Absolute Neuts (auto) 8.0 H, Absolute Lymphs (auto) 2.26, Nucleated RBC % 0 12/08/20 02:48: Sodium 139, Potassium 3.2 L, Chloride 103, Carbon Dioxide 24.0, Anion Gap 12, BUN 27 H, Creatinine 1.72 H, Estim Creat Clear Calc 23.47, Est GFR (MDRD) Af Amer 37 L, Est GFR (MDRD) Non-Af 30 L, BUN/Creatinine Ratio 15.7, Glucose 173 H, Calcium 9.1, Troponin I High Sens 39 12/08/20 02:48: B-Natriuretic Peptide 147.0 H 12/08/20 02:48: TSH 1.69 12/08/20 06:36: POC Glucose 150 H 12/08/20 11:53: POC Glucose 136 H Radiography Diagnostic Testing: Radiology Impression Chest X-Ray 12/08/20 02:56 IMPRESSION: Moderate cardiomegaly. Possible pulmonary hypertension. Electronically Signed: Anna Felix MD at 4:16 EDT Tel , Service support ,
--- NOTE | 2020-12-08 14:04 | CASEMGMT ---
Pt unsure is she has used Eliquis coupon card in the past so 30 day free trial card with instructions provided to pt at this time. Pt voices no further concerns/needs. Awais TELLEZ CM
[2020-12-08 16:50] LABS: Bedside Glucose 116 mg/dL (70-110)
== END 2020-12-08 18:20 | disposition home or self-care (01) | DRG 309 ==
LOC: ED 04:12 → PCU 04:51
PROVIDERS: Admitting Provider Hospitalist; Emergency Provider Emergency Medicine; PCP Internal Medicine; Visit Provider Family Medicine
DX: I48.0 Paroxysmal atrial fibrillation (principal); I50.42 Chronic combined systolic (congestive) and diastolic (congestive) heart failure; I13.0 Hypertensive heart and chronic kidney disease with heart failure and stage 1 through stage 4 chronic kidney disease, or unspecified chronic kidney disease; N18.4 Chronic kidney disease, stage 4 (severe); R00.0 Tachycardia, unspecified; I48.92 Unspecified atrial flutter; I42.8 Other cardiomyopathies; E11.22 Type 2 diabetes mellitus with diabetic chronic kidney disease; E78.5 Hyperlipidemia, unspecified; D50.9 Iron deficiency anemia, unspecified; Z23 Encounter for immunization; I25.10 Atherosclerotic heart disease of native coronary artery without angina pectoris; I36.1 Nonrheumatic tricuspid (valve) insufficiency; I27.21 Secondary pulmonary arterial hypertension; M10.9 Gout, unspecified; I25.2 Old myocardial infarction; Z95.1 Presence of aortocoronary bypass graft; Z86.16 Personal history of COVID-19; J45.909 Unspecified asthma, uncomplicated; Z79.01 Long term (current) use of anticoagulants; Z79.84 Long term (current) use of oral hypoglycemic drugs; Z82.49 Family history of ischemic heart disease and other diseases of the circulatory system
CPT/HCPCS: 71045; 80048; 82962; 83880; 84443; 84484; 85025; 93005; 99285; G0008; 90686; A4216; J0153

== ENCOUNTER → 2021-01-02 09:45 | Outpatient (CLI) | payer MEDICARE, OTHER, SELFPAY ==
[2021-01-02 09:57] LABS: Bacteria 0 SEEN /hpf (None Seen); Mucous, Urine 0 SEEN /hpf (<or=2+); Red Blood Cells-Urine 0 SEEN /hpf (0-5); White Blood Cells 0 SEEN /hpf (0-5)
[2021-01-02 10:53] LABS: Absolute Lymphocyte Count 1.32 X10^3/uL (0.83-4.51); Absolute Neutrophil Count 4.9 X10^3/uL (2.0-7.7); Basophil# 0.04 X10^3/uL; Basophil% 0.6 % (0-1); Color, Urine Straw (Yellow); Eosinophil# 0.14 X10^3/uL; Glucose, Dipstick Normal (Normal); Hematocrit 34.7 % (37-47); Hemoglobin 10.9 g/dL (12.0-15.0); Ketone-Dipstick Negative (Negative); Leukocyte Esterase-Dipstick Negative /ul (Negative); Lymphocyte # 1.32 X10^3/ul (0.83-4.51); Lymphocyte % 18.8 % (19-41); Mean Corp Hgb Conc 31.4 g/dL (32-36); Mean Corpuscular Hgb 28.7 pg (27.0-32.0); Mean Corpuscular Volume 91.3 fL (81-99); Mean Platelet Vol. 10.5 fl (6.2-12.0); Monocyte# 0.61 X10^3/uL; Monocyte% 8.7 % (0-10); NRBC Flagged by Analyzer 0 % (0-5); Neutrophil # 4.89 X10^3/uL (2.7-7.7); Neutrophil % 69.5 % (47-70); Nitrite-Dipstick Negative (Negative); Occult Blood-Urine Negative /ul (Negative); Platelet Count 219 K/mm3 (150-450); Protein-Dipstick 15 mg/dl (Negative); RBC Distribution Width CV 14.5 % (11.6-14.6); RBC Distribution Width SD 47.9 fl (35.1-43.9); Urine Bilirubin Dipstick Negative (Negative); Urine Clarity Clear (Clear); Urine Urobilinogen Normal (Normal)
[2021-01-02 11:01] LABS: Squamous Epithelial Cells - UA 0-5 SEEN /hpf (5-10)
[2021-01-02 11:18] LABS: Microalbumin:Creatinine Ratio 476.6 mg/g CRE (<30 mg/g CRE)
[2021-01-02 11:28] LABS: ALB/GLOB Ratio 1.1 RATIO (0.9-2.4); AST(SGOT) 10 U/L (15-37); Alanine Aminotransfer ALT/SGPT 9 U/L (13-56); Albumin, Serum 3.7 g/dL (3.2-5.0); Alkaline Phosphatase 83 U/L (45-117); Anion Gap 7 (5-15); BUN 20 mg/dL (7-18); BUN/Creat Ratio 10.9 RATIO (10-20); Calcium,Total 9.2 mg/dL (8.5-10.1); Chloride 101 mmol/L (98-107); Cholesterol 166 mg/dL (200); Creatinine, Serum 1.83 mg/dL (0.55-1.02); EST Glomerular Filtration Rate 28 mL/min (>60); Est Glom Filt Rate - Afr Amer 34 mL/min (>60); Globulin 3.3 g/dL (2.2-4.2); Glucose 125 mg/dL (74-106); High Density Lipoprotein 40 mg/dL; Potassium 3.8 mmol/L (3.5-5.1); Sodium Level 140 mmol/L (136-145); Thyroid Stim Hormone (TSH) 3.21 uIU/mL (0.358-3.74); Triglycerides 281 mg/dL; Very Low Density Lipoprotein 56 mg/dL (5-40)
[2021-01-02 11:35] LABS: Vitamin B12 360 pg/mL (211-911)
== END ==
PROVIDERS: PCP Internal Medicine; Referring Provider Internal Medicine; Visit Provider Internal Medicine
DX: E11.9 Type 2 diabetes mellitus without complications (principal); E53.8 Deficiency of other specified B group vitamins
CPT/HCPCS: 36415; 80053; 80061; 81001; 82043; 82570; 82607; 84443; 85025

== ENCOUNTER → 2021-01-08 13:07 | Outpatient (CLI) | payer MEDICARE, OTHER, SELFPAY ==
[2021-01-08 22:13] LABS: BNP,B-Type NATRIURETIC PEPTIDE 278.4 pg/mL (0-100)
== END ==
PROVIDERS: PCP Internal Medicine; Referring Provider Internal Medicine; Visit Provider Internal Medicine
DX: R06.02 Shortness of breath (principal)
CPT/HCPCS: 83880

== ENCOUNTER → 2021-01-18 11:49 | Outpatient (CLI) | payer MEDICARE, OTHER, SELFPAY ==
[2021-01-18 13:13] LABS: Anion Gap 6 (5-15); BUN 21 mg/dL (7-18); BUN/Creat Ratio 11.4 RATIO (10-20); Calcium,Total 9.1 mg/dL (8.5-10.1); Chloride 109 mmol/L (98-107); Creatinine, Serum 1.84 mg/dL (0.55-1.02); EST Glomerular Filtration Rate 28 mL/min (>60); Est Glom Filt Rate - Afr Amer 34 mL/min (>60); Glucose 101 mg/dL (74-106); Potassium 3.9 mmol/L (3.5-5.1); Sodium Level 142 mmol/L (136-145)
== END ==
PROVIDERS: PCP Internal Medicine; Visit Provider Physician Assistant Medical
DX: N28.9 Disorder of kidney and ureter, unspecified (principal)
CPT/HCPCS: 36415; 80048

== ENCOUNTER → 2021-01-31 10:16 | Outpatient (CLI) | payer MEDICARE, OTHER, SELFPAY ==
--- NOTE | 2021-01-31 10:20 | VDLE_ITS ---
Reason For Study: Swelling RIGHT LEFT GSV is normal. GSV is normal. CFV is compressible, spontaneous, phasic, CFV is compressible, spontaneous, phasic, competent and demonstrates normal competent, and demonstrates normal augmentation. augmentation. FV is compressible, spontaneous, phasic, FV is compressible, spontaneous, phasic, competent and demonstrates normal competent and demonstrates normal augmentation. augmentation. POP V is compressible, spontaneous, phasic, POP V is compressible, spontaneous, phasic, competent and demonstrates normal competent and demonstrates normal augmentation. augmentation. T/P Trunk is compressible. T/P Trunk is compressible. PTV is compressible. PTV is compressible. RT PerV is compressible. LT PerV is compressible. Procedure This is a venous duplex using B-mode, color flow and spectral Doppler. Exam performed in department. A preliminary report was called and/or faxed to [facility]. VL/Venous Duplex US - Messi Extrem Interpretation Summary No evidence for acute deep venous thrombosis bilateral lower extremities with p atent and compressible bilateral great saphenous veins. Left popliteal fossa 3.14 x 1.21 x 5.22 cm cystic structure consistent with a Duncan's cyst. Clinical correlation would be appropr iate. Ordering Physician: Brenna Parsons Referring Physician: Nia Uriostegui M.D. Performed By: Lisa Gutierrez RVT
[2021-01-31 14:13] LABS: ALB/GLOB Ratio 1.1 RATIO (0.9-2.4); AST(SGOT) 5 U/L (15-37); Alanine Aminotransfer ALT/SGPT 12 U/L (13-56); Albumin, Serum 3.6 g/dL (3.2-5.0); Alkaline Phosphatase 84 U/L (45-117); Anion Gap 11 (5-15); BUN 28 mg/dL (7-18); BUN/Creat Ratio 13.7 RATIO (10-20); Calcium,Total 9.1 mg/dL (8.5-10.1); Chloride 101 mmol/L (98-107); Creatinine, Serum 2.05 mg/dL (0.55-1.02); EST Glomerular Filtration Rate 25 mL/min (>60); Est Glom Filt Rate - Afr Amer 30 mL/min (>60); Globulin 3.2 g/dL (2.2-4.2); Glucose 96 mg/dL (74-106); Potassium 3.8 mmol/L (3.5-5.1); Protein, Total 6.8 g/dL (6.4-8.2); Sodium Level 143 mmol/L (136-145)
== END ==
PROVIDERS: PCP Internal Medicine; Referring Provider Physician Assistant Medical; Visit Provider Physician Assistant Medical
DX: R60.0 Localized edema (principal); N28.9 Disorder of kidney and ureter, unspecified; M79.606 Pain in leg, unspecified
CPT/HCPCS: 36415; 80053; 93970

== ENCOUNTER 2021-02-14 11:39 | Outpatient (CLI) | payer MEDICARE, OTHER, SELFPAY ==
[2021-02-14 13:17] LABS: Microalbumin:Creatinine Ratio 1136.1 mg/g CRE (<30 mg/g CRE)
--- NOTE | 2021-02-26 12:53 | US_ITS ---
STUDY: RENAL ULTRASOUND - COMPLETE REASON FOR EXAM: Female, 80 years old. CKD TECHNIQUE: Ultrasound evaluation of the kidneys was performed with real-time and static mccrary-scale imaging. COMPARISON: None. FINDINGS: RIGHT KIDNEY: Normal location of the right kidney, which is normal in size. The right kidney measures 12 cm x 4.7 cm x 4.7 cm. There is a normal cortex of the right kidney. The renal cortex measures 1.2 cm. 2 renal cysts are seen. The largest cyst measures 3.6 cm x 3.4 cm x 3.3 cm. I suspect a 4 mm calcification in mid pole calyx of the kidney. There is no right hydronephrosis. DISTAL RIGHT URETER: There is non-visualization of the distal right ureter. There is no demonstrated right ureterovesical junction calculus. There is a visualized right ureteral jet. LEFT KIDNEY: Normal location of the left kidney, which is normal in size. The left kidney measures 12.6 cm x 4.1 cm x 6.2 cm. There is a normal cortex of the left kidney. The renal cortex measures 1.3 cm. 4 cysts are seen in the left kidney. The largest cyst measures 1.9 cm x 1.2 cm x 1.2 cm. There is a 6 mm nonobstructive calculus in the midportion. There is no left hydronephrosis. DISTAL LEFT URETER: There is non-visualization of the distal left ureter. There is no demonstrated left ureterovesical junction calculus. There is a visualized left ureteral jet. BLADDER: The distended urinary bladder has a volume of 20.5 ml. There is a normal wall thickness of the distended urinary bladder. There is no demonstrated mass within the urinary bladder. There are no demonstrated bladder calculi. US/Kidney and Bladder IMPRESSION: Bilateral renal cysts. Bilateral nonobstructive intrarenal calculi. Electronically Signed: John Corral MD at 14:22 EST , Service support ,
== END 2021-02-14 23:59 | disposition short-term general hospital (02) ==
LOC: POLAB3 11:40 → LABSPEC 11:41
PROVIDERS: PCP Internal Medicine; Visit Provider Internal Medicine Nephrology
DX: N18.32 Chronic kidney disease, stage 3b (principal)
CPT/HCPCS: 82043; 82570

== ENCOUNTER 2021-02-19 11:28 | Outpatient (CLI) | payer MEDICARE, OTHER, SELFPAY ==
[2021-02-19 12:38] LABS: Anion Gap 7 (5-15); BUN 34 mg/dL (7-18); BUN/Creat Ratio 14.7 RATIO (10-20); Calcium,Total 9.2 mg/dL (8.5-10.1); Chloride 102 mmol/L (98-107); Creatinine, Serum 2.31 mg/dL (0.55-1.02); EST Glomerular Filtration Rate 22 mL/min (>60); Est Glom Filt Rate - Afr Amer 26 mL/min (>60); Glucose 99 mg/dL (74-106); Potassium 3.7 mmol/L (3.5-5.1); Sodium Level 139 mmol/L (136-145)
== END 2021-02-19 23:59 | disposition short-term general hospital (02) ==
LOC: LAB 11:31
PROVIDERS: PCP Internal Medicine; Visit Provider Physician Assistant Medical
DX: I50.9 Heart failure, unspecified (principal)
CPT/HCPCS: 36415; 80048

== ENCOUNTER 2021-02-26 13:44 | Outpatient (CLI) | payer MEDICARE, OTHER, SELFPAY ==
[2021-02-26 14:40] LABS: Anion Gap 7 (5-15); BUN 33 mg/dL (7-18); BUN/Creat Ratio 14.7 RATIO (10-20); Calcium,Total 8.9 mg/dL (8.5-10.1); Chloride 102 mmol/L (98-107); Creatinine, Serum 2.24 mg/dL (0.55-1.02); EST Glomerular Filtration Rate 22 mL/min (>60); Est Glom Filt Rate - Afr Amer 27 mL/min (>60); Glucose 97 mg/dL (74-106); Potassium 4.3 mmol/L (3.5-5.1); Sodium Level 139 mmol/L (136-145)
== END 2021-02-26 23:59 | disposition short-term general hospital (02) ==
LOC: LAB 13:47
PROVIDERS: PCP Internal Medicine; Visit Provider Physician Assistant Medical
DX: N28.9 Disorder of kidney and ureter, unspecified (principal)
CPT/HCPCS: 36415; 76770; 80048

== ENCOUNTER 2021-03-14 15:11 | Outpatient (CLI) | payer MEDICARE, OTHER, SELFPAY ==
[2021-03-14 16:10] LABS: Albumin, Serum 3.7 g/dL (3.2-5.0); BUN 33 mg/dL (7-18); BUN/Creat Ratio 14.1 RATIO (10-20); Chloride 104 mmol/L (98-107); Creatinine, Serum 2.34 mg/dL (0.55-1.02); EST Glomerular Filtration Rate 21 mL/min (>60); Est Glom Filt Rate - Afr Amer 26 mL/min (>60); Glucose 128 mg/dL (74-106); Phosphorus 3.5 mg/dL (2.5-4.9); Potassium 3.8 mmol/L (3.5-5.1); Sodium Level 138 mmol/L (136-145)
[2021-03-14 16:16] LABS: Vitamin D,25 Hydroxy 19.7 ng/mL
[2021-03-15 07:31] LABS: PTHIN 116.3 pg/mL (18.4-80.1)
== END 2021-03-14 23:59 | disposition short-term general hospital (02) ==
LOC: LAB 15:14
PROVIDERS: PCP Internal Medicine; Visit Provider Internal Medicine Nephrology
DX: N18.32 Chronic kidney disease, stage 3b (principal)
CPT/HCPCS: 36415; 80069; 82306; 83970

== ENCOUNTER 2021-04-13 15:35 | Outpatient (CLI) | payer MEDICARE, OTHER, SELFPAY ==
--- NOTE | 2021-04-13 15:39 | RAD_ITS ---
STUDY: X-RAY - LEFT SHOULDER REASON FOR EXAM: Female, 80 years old. pt fell yesterday, pain on top of left shoulder, some redness TECHNIQUE: 3 view(s) of the shoulder. COMPARISON: None. FINDINGS: There is mild degenerative arthrosis of the glenohumeral articulation. There is degenerative arthrosis of the acromioclavicular joint without inferior osseous spur formation. Normal acromion. Normal humeral head and visualized proximal humerus. The soft tissue structures are unremarkable. Normal visualized pulmonary apex. RAD/Shoulder min 2 Views IMPRESSION: No demonstrated fracture or malalignment. Electronically Signed: Fausto Rush MD ([place]) at 15:53 EST ,
== END 2021-04-13 23:59 | disposition home or self-care (01) ==
LOC: MTRAD 15:38
PROVIDERS: PCP Internal Medicine; Referring Provider Physician Assistant Surgical; Visit Provider Physician Assistant Surgical
DX: S40.012A Contusion of left shoulder, initial encounter (principal)
CPT/HCPCS: 73030

== ENCOUNTER 2021-05-24 12:25 | Outpatient (CLI) | payer MEDICARE, OTHER, SELFPAY ==
[2021-05-24 13:55] LABS: Microalbumin,Random Urine 53.6 mg/L (NO RANGE EST.); Microalbumin:Creatinine Ratio 147.3 mg/g CRE (<30 mg/g CRE)
[2021-05-24 13:58] LABS: Uric Acid 9.3 mg/dL (2.6-6.0)
[2021-05-30 11:58] LABS: Anion Gap 9 (5-15); BUN 45 mg/dL (7-18); BUN/Creat Ratio 14.6 RATIO (10-20); Calcium,Total 8.8 mg/dL (8.5-10.1); Chloride 108 mmol/L (98-107); Creatinine, Serum 3.08 mg/dL (0.55-1.02); EST Glomerular Filtration Rate 16 mL/min (>60); Est Glom Filt Rate - Afr Amer 19 mL/min (>60); Glucose 133 mg/dL (74-106); Potassium 4.4 mmol/L (3.5-5.1); Sodium Level 140 mmol/L (136-145)
== END 2021-05-24 23:59 | disposition home or self-care (01) ==
LOC: LAB 12:28
PROVIDERS: PCP Internal Medicine; Referring Provider Internal Medicine Nephrology; Visit Provider Internal Medicine Nephrology
DX: E11.22 Type 2 diabetes mellitus with diabetic chronic kidney disease (principal); N18.9 Chronic kidney disease, unspecified; M10.9 Gout, unspecified
CPT/HCPCS: 36415; 80048; 82043; 82570; 84550

== ENCOUNTER → 2021-08-16 | Outpatient (CLI) | payer MEDICARE, OTHER, SELFPAY ==
[2021-08-16 09:45] LABS: Bacteria 0 SEEN /hpf (None Seen); Mucous, Urine 0 SEEN /hpf (<or=2+); Red Blood Cells-Urine 0 SEEN /hpf (0-5); Squamous Epithelial Cells - UA 0 SEEN /hpf (5-10); White Blood Cells 0 SEEN /hpf (0-5)
[2021-08-16 10:19] LABS: Absolute Lymphocyte Count 1.15 X10^3/uL (0.83-4.51); Absolute Neutrophil Count 4.6 X10^3/uL (2.0-7.7); Basophil# 0.02 X10^3/uL; Basophil% 0.3 % (0-1); Eosinophil# 0.02 X10^3/uL; Eosinophils% 0.3 % (0-5); Hematocrit 31.6 % (37-47); Lymphocyte # 1.15 X10^3/ul (0.83-4.51); Lymphocyte % 18.3 % (19-41); Mean Corp Hgb Conc 31.6 g/dL (32-36); Mean Corpuscular Hgb 29.1 pg (27.0-32.0); Mean Corpuscular Volume 91.9 fL (81-99); Mean Platelet Vol. 10.7 fl (6.2-12.0); NRBC Flagged by Analyzer 0 % (0-5); Neutrophil # 4.57 X10^3/uL (2.7-7.7); Neutrophil % 72.8 % (47-70); Platelet Count 171 K/mm3 (150-450); RBC Distribution Width SD 50.3 fl (35.1-43.9); Red Blood Count 3.44 M/mm3 (4.2-5.4); White Blood Count 6.3 K/mm3 (4.4-11.0)
[2021-08-16 10:20] LABS: Color, Urine Straw (Yellow); Glucose, Dipstick Normal (Normal); Ketone-Dipstick Negative (Negative); Leukocyte Esterase-Dipstick Negative /ul (Negative); Nitrite-Dipstick Negative (Negative); Occult Blood-Urine Negative /ul (Negative); Protein-Dipstick Negative (Negative); Urine Bilirubin Dipstick Negative (Negative); Urine Clarity Clear (Clear); Urine Urobilinogen Normal (Normal)
[2021-08-16 11:11] LABS: ALB/GLOB Ratio 1.1 RATIO (0.9-2.4); AST(SGOT) 7 U/L (15-37); Alanine Aminotransfer ALT/SGPT 8 U/L (13-56); Albumin, Serum 3.4 g/dL (3.2-5.0); Alkaline Phosphatase 103 U/L (45-117); Anion Gap 4 (5-15); BUN 41 mg/dL (7-18); BUN/Creat Ratio 14.3 RATIO (10-20); Chloride 107 mmol/L (98-107); Cholesterol 126 mg/dL (200); Creatinine, Serum 2.87 mg/dL (0.55-1.02); EST Glomerular Filtration Rate 17 mL/min (>60); Est Glom Filt Rate - Afr Amer 20 mL/min (>60); Glucose 118 mg/dL (74-106); High Density Lipoprotein 34 mg/dL; Phosphorus 4.4 mg/dL (2.5-4.9); Potassium 4.4 mmol/L (3.5-5.1); Protein, Total 6.4 g/dL (6.4-8.2); Sodium Level 139 mmol/L (136-145); Triglycerides 150 mg/dL; Very Low Density Lipoprotein 30 mg/dL (5-40)
[2021-08-16 11:22] LABS: Microalbumin,Random Urine 36.3 mg/L (NO RANGE EST.); Microalbumin:Creatinine Ratio 232.7 mg/g CRE (<30 mg/g CRE)
== END | disposition home or self-care (01) ==
LOC: LAB 09:28
PROVIDERS: PCP Internal Medicine; Referring Provider Internal Medicine Nephrology; Visit Provider Internal Medicine Nephrology
DX: I13.10 Hypertensive heart and chronic kidney disease without heart failure, with stage 1 through stage 4 chronic kidney disease, or unspecified chronic kidney disease (principal); N18.32 Chronic kidney disease, stage 3b; M10.9 Gout, unspecified; E78.2 Mixed hyperlipidemia; R80.9 Proteinuria, unspecified
CPT/HCPCS: 36415; 80053; 80061; 81001; 82043; 82570; 84100; 84550; 85025

== ENCOUNTER → 2021-11-20 | Outpatient (CLI) | payer MEDICARE, OTHER, SELFPAY | END | disposition home or self-care (01) | LOC: PSN 13:28 | PROVIDERS: PCP Internal Medicine; Referring Provider Internal Medicine; Visit Provider Internal Medicine | DX: R00.1 Bradycardia, unspecified (principal) | CPT/HCPCS: 93225; 93226 ==

== ENCOUNTER → 2021-11-29 | Outpatient (CLI) | payer MEDICARE, OTHER, SELFPAY ==
[2021-11-29 16:26] LABS: Hematocrit 32.9 % (37-47); Hemoglobin 10.5 g/dL (12.0-15.0); Mean Corp Hgb Conc 31.9 g/dL (32-36); Mean Corpuscular Hgb 29.4 pg (27.0-32.0); Mean Corpuscular Volume 92.2 fL (81-99); Mean Platelet Vol. 10.8 fl (6.2-12.0); Platelet Count 204 K/mm3 (150-450); RBC Distribution Width CV 15.5 % (11.6-14.6); RBC Distribution Width SD 51.8 fl (35.1-43.9); Red Blood Count 3.57 M/mm3 (4.2-5.4)
[2021-11-29 16:55] LABS: PTHIN 143.9 pg/mL (18.4-80.1)
[2021-11-29 17:23] LABS: Albumin, Serum 3.5 g/dL (3.2-5.0); BUN 43 mg/dL (7-18); BUN/Creat Ratio 14.9 RATIO (10-20); Chloride 110 mmol/L (98-107); Creatinine, Serum 2.88 mg/dL (0.55-1.02); EST Glomerular Filtration Rate 17 mL/min (>60); Est Glom Filt Rate - Afr Amer 20 mL/min (>60); Glucose 124 mg/dL (74-106); Phosphorus 3.9 mg/dL (2.5-4.9); Potassium 4.8 mmol/L (3.5-5.1); Sodium Level 141 mmol/L (136-145)
== END | disposition home or self-care (01) ==
LOC: LAB 15:59
PROVIDERS: PCP Internal Medicine; Referring Provider Internal Medicine Nephrology; Visit Provider Internal Medicine Nephrology
DX: N18.4 Chronic kidney disease, stage 4 (severe) (principal); M10.9 Gout, unspecified
CPT/HCPCS: 36415; 80069; 83970; 85027

== ENCOUNTER → 2022-02-22 | Outpatient (CLI) | payer MEDICARE, OTHER, SELFPAY ==
[2022-02-22 11:16] LABS: Hematocrit 32.7 % (37-47); Hemoglobin 9.8 g/dL (12.0-15.0); Mean Corpuscular Hgb 28.5 pg (27.0-32.0); Mean Corpuscular Volume 95.1 fL (81-99); Mean Platelet Vol. 10.4 fl (6.2-12.0); Platelet Count 239 K/mm3 (150-450); RBC Distribution Width CV 13.9 % (11.6-14.6); RBC Distribution Width SD 48.6 fl (35.1-43.9); Red Blood Count 3.44 M/mm3 (4.2-5.4); White Blood Count 8.8 K/mm3 (4.4-11.0)
[2022-02-22 11:22] LABS: 24 Hour Urine Protein 205.8 mg/24HR (<150 MG/24HR); 24HR. UA Prot. Total Volume 1225 mL; Urine Protein (24 Hour) 16.8 mg/dL (<11.9)
[2022-02-22 11:44] LABS: PTHIN 228.9 pg/mL (18.4-80.1)
[2022-02-22 11:47] LABS: Albumin, Serum 3.3 g/dL (3.2-5.0); BUN 34 mg/dL (7-18); BUN/Creat Ratio 12.8 RATIO (10-20); Calcium,Total 9.1 mg/dL (8.5-10.1); Chloride 106 mmol/L (98-107); Creatinine, Serum 2.65 mg/dL (0.55-1.02); EST Glomerular Filtration Rate 18 mL/min (>60); Est Glom Filt Rate - Afr Amer 22 mL/min (>60); Glucose 115 mg/dL (74-106); Phosphorus 3.5 mg/dL (2.5-4.9); Potassium 4.3 mmol/L (3.5-5.1); Sodium Level 139 mmol/L (136-145)
[2022-02-22 12:03] LABS: Creat.Clear Total Volume 1225 mL; Creatinine Clearance 23 ml/min (100-200); Creatinine Serum Creat 2.7 mg/dL (0.6-1.0); EST Glomerular Filtration Rate 18 mL/min (>60); Est Glom Filt Rate - Afr Amer 22 mL/min (>60)
== END | disposition home or self-care (01) ==
PROVIDERS: PCP Internal Medicine; Referring Provider Internal Medicine Nephrology; Visit Provider Internal Medicine Nephrology
DX: N18.4 Chronic kidney disease, stage 4 (severe) (principal)
CPT/HCPCS: 36415; 80069; 81050; 82575; 83970; 84156; 85027

== ENCOUNTER 2022-06-03 16:15 | Observation (INO) | payer MEDICARE, OTHER, SELFPAY ==
[2022-06-03] VITALS (8 sets, daily range): BP systolic 103–169; BP diastolic 58–80; PULSE 56–67; RESP 14–18; TEMP 36.1–36.4; O2SAT 94–100; BMI 31.4; BMI 31.1
--- NOTE | 2022-06-03 16:51 | EKG12_ITS ---
Test Reason : CHEST TIGHTNESS Blood Pressure : / mmHG Vent. Rate : 062 BPM Atrial Rate : 062 BPM P-R Int : 228 ms QRS Dur : 144 ms QT Int : 468 ms P-R-T Axes : 066 -35 127 degrees QTc Int : 475 ms Sinus rhythm with 1st degree A-V block Left axis deviation Left bundle branch block Abnormal ECG Confirmed by STAN ROSAS, EDWIN ([id number]), editor dictionary BRYAN CHAVARRIA ([id number]) on 06/06/2022 9:17:47 AM Referred By: MCKAY Confirmed By:EDWIN PIERCE MD
--- NOTE | 2022-06-03 17:07 | EX.ED.DYSGE1 ---
HPI History of Present Illness Chief Complaint: Shortness of Breath Detail of Chief Complaint: Dyspnea on exertion and chest pain with exertion Informant: patient Onset/Context/Timing Onset: Weeks (1.5 weeks) Context: Sudden Onset Timing: Intermittent Quality: Discomfort Location: Mid chest exertion Current Severity: Gone Maximum Severity: Moderate Worsened by: Exertion Relieved by: Rest Associated Symptoms Associated Symptoms: Dyspnea Narrative Narrative: Patient is AN 81-year-old woman with history of coronary bypass surgery August 06, 2004 at [facility] who presents with classic angina per carlos criteria. Patient has history of paroxysmal atrial fibrillation, grade 3 diastolic dysfunction, secondary pulmonary hypertension, hyperlipidemia. She also has history of wide-complex tachycardia. Per review of past medical history and meds she also has history of diabetes. Patient had blood work performed at doctor's office and was told to come to the emergency room because her troponin was elevated. Patient has been sleeping in a lazy boy because her bed is being fixed. It is not because of orthopnea or PND. She states since she has been sleep in a lazy boy her ankles have been swelling. She denies black or maroon-colored stool. She denies history of PE or DVT. She denies pain or discoloration of her legs. 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 Atrial enlargement, left Benign paroxysmal positional vertigo Benign positional vertigo Bruit (arterial) Chronic combined systolic and diastolic CHF (congestive heart failure) Colon polyps Contusion of left shoulder COVID-19 virus detected (02/26/20) Diabetes mellitus type 2 in obese Essential (primary) hypertension GERD (gastroesophageal reflux disease) Gout Grade III diastolic dysfunction Head contusion History of non-ST elevation myocardial infarction (NSTEMI) (04/2017) HLD (hyperlipidemia) Injury of femoral artery Iron deficiency anemia refractory to iron therapy Lower GI bleed (03/2019) Meningioma New onset atrial flutter (09/29/17) Non-ischemic cardiomyopathy Non-ST elevation myocardial infarction (NSTEMI) due to mismatch of myocardial oxygen supply and demand (11/2016) Obesity Other cerebral infarction Pain, lower extremity Paroxysmal atrial fibrillation Paroxysmal atrial flutter Partial symptomatic epilepsy with complex partial seizures, intractable, 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 Pseudoaneurysm following procedure Renal insufficiency Secondary pulmonary arterial hypertension SOB (shortness of breath) Home Medications montelukast 10 mg tablet 10 mg PO QHS allergies 08/24/17 [History Last Taken 03/25/19] linagliptin 5 mg tablet 5 mg PO DAILY DM 04/09/18 [History Last Taken 03/26/19] cholecalciferol (vitamin D3) 25 mcg (1,000 unit) tablet 1,000 unit PO DAILY 03/26/19 [History Last Taken 03/26/19] lansoprazole 30 mg capsule,delayed release 30 mg PO DAILY GERD 03/26/19 [History Last Taken 03/26/19] insulin detemir U-100 100 unit/mL (3 mL) subcutaneous pen 23 unit subcut DAILY DM 11/30/19 [History Last Taken Unknown] atorvastatin 40 mg tablet 40 mg PO .QOD 05/18/20 [History Last Taken Unknown] aspirin 81 mg tablet 81 mg PO QHS heart health 12/08/20 [History Last Taken Unknown] nitroglycerin 0.4 mg sublingual tablet 0.4 mg sublingual Q5M PRN Chest Pain 12/21/20 [History Last Taken Unknown] olmesartan 40 mg tablet 20 mg PO DAILY 01/02/21 [History Last Taken Unknown] chlorthalidone 50 mg tablet 25 mg PO DAILY 05/24/21 [History Last Taken Unknown] methscopolamine 5 mg tablet 5 mg PO DAILY stomach acid 05/24/21 [History Last Taken Unknown] Handicap Placard #1 ea 10/04/21 [Rx Last Taken Unknown] albuterol sulfate 90 mcg/actuation aerosol inhaler (ProAir HFA) 1 puff inhalation Q4H PRN Shortness Of Breath 10/04/21 [History Last Taken Unknown] mometasone-formoterol HFA 200 mcg-5 mcg/actuation aerosol inhaler (Dulera) 2 puff inhalation BID 10/04/21 [History Last Taken Unknown] topiramate 25 mg tablet 25 mg PO DAILY 10/04/21 [History Last Taken Unknown] amlodipine 2.5 mg tablet 2.5 mg PO DAILY #30 tabs 10/29/21 [Rx Last Taken Unknown] magnesium oxide 400 mg (241.3 mg magnesium) tablet 400 mg PO DAILY #90 tabs 12/18/21 [Rx Last Taken Unknown] amiodarone 200 mg tablet See Rx Instructions .Route .COMPLEX #90 tabs 01/09/22 [Rx Last Taken Unknown] carvedilol 25 mg tablet (Coreg) 12.5 mg PO BID 01/09/22 [History Last Taken Unknown] furosemide 40 mg tablet 40 mg PO DAILY #90 tabs 03/25/22 [Rx Last Taken Unknown] allopurinol 300 mg tablet 100 mg PO DAILY 04/30/22 [History Last Taken Unknown] Allergy/AdvReac Type Severity Reaction Status Date / Time lisinopril AdvReac cough Verified 06/03/22 16:21 Family History Father CAD (coronary artery disease) Hypertension Cancer skin Mother CAD (coronary artery disease) Hypertension Diabetes Brother CAD (coronary artery disease) Sister CAD (coronary artery disease) Myocardial infarction Surgical History H/O basal cell carcinoma excision H/O cardiac radiofrequency ablation H/O coronary artery bypass surgery (08/06/04) H/O craniotomy (2008) History of ankle surgery History of cardioversion (09/29/17) History of colonoscopy History of hysterectomy History of left heart catheterization (LHC) (11/25/16) History of radiofrequency ablation procedure for cardiac arrhythmia (12/04/17) History of tonsillectomy Social History Smoking Status: Never smoker alcohol intake: never substance use type: does not use diet: diabetic caffeine: Yes Type: carbonated beverages and tea what type of physical activity do you participate in: none seatbelt use: always do you feel safe at home: Yes ROS ROS ED Constitutional Constitutional ED: Denies chills, fever(s), subjective, sweats or weight loss Eyes Eyes: Denies blurry vision, change in vision or diplopia ENT ENT ED: Denies ear pain, rhinorrhea or sore throat Cardiovascular Cardiovascular: Reports chest pain; Denies orthopnea, palpitations, paroxysmal nocturnal dyspnea or racing heartbeat Respiratory/Chest Respiratory/Chest: Reports dyspnea and dyspnea on exertion; Denies cough, orthopnea or paroxysmal nocturnal dyspnea Gastrointestinal Gastrointestinal: Denies abdominal pain, constipation, diarrhea, melena, nausea or vomiting Genitourinary Genitourinary ED: Denies dysuria, hematuria or urinary frequency Musculoskeletal Musculoskeletal: Denies arthralgias, back pain or myalgias Integumentary Denies Abrasions or rash Neurologic Neurologic: Denies headache(s), paresthesias or weakness Psychiatric Psychiatric: Denies anxiety or depression Endocrine Endocrinology: Denies cold intolerance or heat intolerance Hematologic/Lymphatic Hematologic/Lymphatic: Reports systems reviewed and no addt'l complaints, except as documented and other Details: Per old records has history of anemia. ; Denies easy bleeding or easy bruising EXAM Physical Exam Const Vital Signs: 06/03/22 16:16 06/03/22 17:07 06/03/22 17:09 Temperature 96.9 F L Temperature Source Temporal Pulse Rate 67 62 Respiratory Rate 18 14 Respiratory Effort Normal Blood Pressure 145/69 H 163/71 H Blood Pressure Mean 94 101 Pulse Ox 98 97 Oxygen Delivery Method Room Air Room Air Room Air Positive well nourished, well developed and obese General Appearance ED: well developed, NAD and pallor; Negative for cyanotic or diaphoretic Nutritional Appearance: obese HEENT Denies moist mucous membranes HEENT Narrative: Head is atraumatic normocephalic.. Ears are normal. Nares are patent. Posterior pharynx is normal. Eyes PERRL and EOMs intact bilaterally General Eye ED: Negative for pale conjunctiva or scleral icterus Neck no lymphadenopathy, supple and no JVD Chest Wall inspection of chest normal and palpation of chest normal Resp normal respiratory effort and clear to auscultation bilaterally Cardio regular rate, regular rhythm, S1 normal heart sound, S2 normal heart sound and no murmurs GI normal to inspection, nondistended, normoactive bowel sounds, non-tender, non-distended and no masses; Negative for hepatosplenomegaly Back/Spine no CVA tenderness Cervical Spine: Negative for cervical spine tenderness Thoracic Spine / Upper Back: Negative for thoracic spinal tenderness Lumbar Spine / Lower Back: Negative for lumbar spinal tenderness Extremity Extremity Narrative: 2+ pitting edema bilateral. There is no asymmetry, discoloration, leg vein distention, palpable cords tenderness on the distribution deep venous system. General Extremety ED: Yes edema General Extremity: edema Neuro oriented x3, CN's II-XII intact bilaterally and no sensory deficits noted Psych mental status grossly normal Skin no rashes or lesions noted, no wounds and skin turgor normal General Skin Exam: pallor; Negative for elasticity normal or jaundice MDM MDM MDM Narrative Medical decision making narrative: Patient with reported elevated troponin. History is consistent with classic angina per carlos criteria. EKG revealed a sinus rhythm first-degree AV block with left bundle branch block. There is no acute ischemic changes noted. Appropriate work-up was undertaken. Since there is no acute ischemia we will discuss case Dr. Hanks regarding anticoagulation of Lovenox versus heparin. Patient does take a baby aspirin a day. Will give her an additional 3 baby aspirin's. History & Record Review Discussion w/independent historian: Patient and Family Additional record(s) reviewed:: Prior inpatient record, Prior outpatient record, Prior ED visit and Prior labs Lab Data Attestation: I reviewed the patient's lab results. Lab results narrative: Troponin is normal. Patient has acute on chronic renal failure with a GFR of 13. Patient has chronic anemia. Labs: Laboratory Results - last 24 hr 06/03/22 06/03/22 17:05 17:05 WBC 6.4 RBC 3.53 L Hgb 10.3 L Hct 33.6 L MCV 95.2 MCH 29.2 MCHC 30.7 L RDW Std Deviation 50.6 H RDW Coeff of Kelechi 14.8 H Plt Count 215 MPV 10.9 Immature Gran % (Auto) 0.600 Neut % (Auto) 69.0 Lymph % (Auto) 19.7 [place] % (Auto) 8.5 Eos % (Auto) 1.6 Baso % (Auto) 0.6 Absolute Neuts (auto) 4.4 Absolute Lymphs (auto) 1.25 Nucleated RBC % 0 Sodium 137 Potassium 4.2 Chloride 108 H Carbon Dioxide 26.0 Anion Gap 3 L BUN 59 H Creatinine 3.50 H Estim Creat Clear Calc 11.34 Est GFR (MDRD) Af Amer 16 L Est GFR (MDRD) Non-Af 13 L BUN/Creatinine Ratio 16.9 Glucose 139 H Calcium 9.1 Troponin I High Sens 11 Radiography Chest X-Ray - ED: 1 View and Read by ED Physician (Reveals cardiomegaly. Limited and supportive volume. Mediastinum is prominent. This may be due to tortuous aorta. There is no known history of aortic aneurysm. Osseous structures are unremarkable.) Diagnostic Testing: Clinical Impression(s) from Imaging Studies Chest X-Ray 06/03/22 17:09 IMPRESSION: Stable cardiomegaly. Electronically Signed: Jermaine Khan DO at 17:26 EDT , EKG Initial EKG: Attestation: I personally reviewed and interpreted this EKG as follows: Interpretation: Sinus Rhythm (Rate is 62. There is first-degree AV block. MO interval is 228 ms. Cures duration 144 ms. QT duration 460 ms.) Prior: Unchanged Treatment and Re-Evaluation :: Was discussed with Dr. Winchester. He or Dr. Beyer will cath tomorrow. Discussed anticoagulation. Since patient's GFR is 15 Lovenox was not given. Critical Care Time Critical Care Time: Yes Critical care time (excluding procedures): 30-74 minutes (22 minutes), Including time spent: (History, physical, documentation, independent interpretation of laboratory results and x-ray), Discussing w/Patient &/or Family/Fashion Supervisor, Discussing w/Consultants and Arranging Admission or Transfer Discharge Plan Dx/Rx/DC Orders Clinical Impression: Coronary artery disease with exertional angina, HLD (hyperlipidemia), Secondary pulmonary arterial hypertension, H/O coronary artery bypass surgery, Edema, Acute on chronic kidney failure Disposition Disposition: [facility]
--- NOTE | 2022-06-03 17:09 | RAD_ITS ---
INDICATION: dyspnea EXAMINATION/TECHNIQUE: X-RAY - XR Chest 1 View COMPARISON: None. FINDINGS: LINES/DEVICES: Sternotomy wires overlying the mediastinum. LUNGS: No consolidation, edema or effusion. No pneumothorax. MEDIASTINUM AND CARDIOVASCULAR STRUCTURES: Cardiac silhouette is enlarged. Central airways and mediastinal contour are unremarkable. BONES AND SOFT TISSUES: Unremarkable. RAD/Chest 1 View (Portable) IMPRESSION: Stable cardiomegaly. Electronically Signed: Jermaine Khan DO at 17:26 EDT ,
[2022-06-03 17:30] LABS: Absolute Lymphocyte Count 1.25 X10^3/uL (0.83-4.51); Absolute Neutrophil Count 4.4 X10^3/uL (2.0-7.7); Basophil# 0.04 X10^3/uL; Basophil% 0.6 % (0-1); Eosinophils% 1.6 % (0-5); Hematocrit 33.6 % (37-47); Hemoglobin 10.3 g/dL (12.0-15.0); Lymphocyte # 1.25 X10^3/ul (0.83-4.51); Lymphocyte % 19.7 % (19-41); Mean Corp Hgb Conc 30.7 g/dL (32-36); Mean Corpuscular Hgb 29.2 pg (27.0-32.0); Mean Corpuscular Volume 95.2 fL (81-99); Mean Platelet Vol. 10.9 fl (6.2-12.0); Monocyte# 0.54 X10^3/uL; Monocyte% 8.5 % (0-10); NRBC Flagged by Analyzer 0 % (0-5); Neutrophil # 4.38 X10^3/uL (2.7-7.7); Platelet Count 215 K/mm3 (150-450); RBC Distribution Width CV 14.8 % (11.6-14.6); RBC Distribution Width SD 50.6 fl (35.1-43.9); Red Blood Count 3.53 M/mm3 (4.2-5.4); White Blood Count 6.4 K/mm3 (4.4-11.0)
[2022-06-03 17:55] LABS: Anion Gap 3 (5-15); BUN 59 mg/dL (7-18); BUN/Creat Ratio 16.9 RATIO (10-20); Calcium,Total 9.1 mg/dL (8.5-10.1); Chloride 108 mmol/L (98-107); EST Glomerular Filtration Rate 13 mL/min (>60); Est Glom Filt Rate - Afr Amer 16 mL/min (>60); Estimated Creatinine Clearance 11.34 ml/min; Glucose 139 mg/dL (74-106); Potassium 4.2 mmol/L (3.5-5.1); Sodium Level 137 mmol/L (136-145); Troponin-I HS 11 pg/mL (3.0-54.0)
[2022-06-03] MEDS: Aspirin 81 MG TAB.CHEW 243 MG PO (18:43)
--- NOTE | 2022-06-03 18:46 | PCM.HP.STD ---
HPI - General General Date of Admission: 06/03/22 Date of Service: 06/03/22 Chief Complaint: Short of breath HPI Narrative COMFORT HU, is a 81 F with a history of chronic combined congestive heart failure, coronary artery disease status post CABG 2004, CKD, atrial fibrillation with an ablation in 2017 who presented to [facility] 06/03/2022 with increasing shortness of breath over several months but worsening further over the past week. She denies any chest pain but said that she ate a couple times has felt like she had to take a deep breath and it was hard to get an air but it would go away quickly. Has had some swelling in her legs for the past 2 weeks which she noted since her amlodipine was moved to nighttime, possibly some increase in weight but said she stays roughly around 185. In the ED EKG showed first-degree AV block with left axis deviation and left bundle branch block, troponins initially negative at 11 but given exertional nature of symptoms cardiology called in ED for evaluation. Initially had considered left heart cath but after evaluating in person it was recommended that enzymes be cycled and stress test in the a.m. with a cardiology consult if enzymes elevate or stress is positive. Additionally in ED she had a creatinine of 3.5 with a baseline of 2.65 with unclear etiology. Hospitalist consulted for admission. Patient evaluated at bedside and reports she has no symptoms when she is sitting still but has had the progressive shortness of breath over the past 1 month worsening more over the past 1 week as above. Denies any chest pain but feels like sometimes it will be hard to catch her breath. Dry cough since a cold in January. Reports she does follow with Dr. Rodriguez and was told that her present symptoms are not due to her underlying lung disease which she reports is asthma. [facility] Medical History Acute on chronic anemia Asthma Atherosclerotic heart disease of [place] coronary artery without angina pectoris Atrial enlargement, left Benign paroxysmal positional vertigo Benign positional vertigo Bruit (arterial) Chronic combined systolic and diastolic CHF (congestive heart failure) Colon polyps Contusion of left shoulder COVID-19 virus detected (02/26/20) Diabetes mellitus type 2 in obese Essential (primary) hypertension GERD (gastroesophageal reflux disease) Gout Grade III diastolic dysfunction Head contusion History of non-ST elevation myocardial infarction (NSTEMI) (04/2017) HLD (hyperlipidemia) Injury of femoral artery Iron deficiency anemia refractory to iron therapy Lower GI bleed (03/2019) Meningioma New onset atrial flutter (09/29/17) Non-ischemic cardiomyopathy Non-ST elevation myocardial infarction (NSTEMI) due to mismatch of myocardial oxygen supply and demand (11/2016) Obesity Other cerebral infarction Pain, lower extremity Paroxysmal atrial fibrillation Paroxysmal atrial flutter Partial symptomatic epilepsy with complex partial seizures, intractable, with status epilepticus [id number] condition Pseudoaneurysm following procedure Renal insufficiency Secondary pulmonary arterial hypertension SOB (shortness of breath) Home Medications montelukast 10 mg tablet 10 mg PO QHS allergies 08/24/17 [History Last Taken 03/25/19] cholecalciferol (vitamin D3) 25 mcg (1,000 unit) tablet 1,000 unit PO DAILY 03/26/19 [History Last Taken 03/26/19] lansoprazole 30 mg capsule,delayed release 30 mg PO DAILY GERD 03/26/19 [History Last Taken 03/26/19] atorvastatin 40 mg tablet 40 mg PO .QOD 05/18/20 [History Last Taken Unknown] aspirin 81 mg tablet 81 mg PO QHS heart health 12/08/20 [History Last Taken Unknown] olmesartan 40 mg tablet 20 mg PO DAILY 01/02/21 [History Last Taken Unknown] chlorthalidone 50 mg tablet 25 mg PO DAILY 05/24/21 [History Last Taken Unknown] methscopolamine 5 mg tablet 5 mg PO DAILY stomach acid 05/24/21 [History Last Taken Unknown] Handicap Placard #1 ea 10/04/21 [Rx Last Taken Unknown] albuterol sulfate 90 mcg/actuation aerosol inhaler (ProAir HFA) 1 puff inhalation Q4H PRN Shortness Of Breath 10/04/21 [History Last Taken Unknown] topiramate 25 mg tablet 25 mg PO DAILY 10/04/21 [History Last Taken Unknown] magnesium oxide 400 mg (241.3 mg magnesium) tablet 400 mg PO DAILY #90 tabs 12/18/21 [Rx Last Taken Unknown] carvedilol 25 mg tablet (Coreg) 12.5 mg PO BID 01/09/22 [History Last Taken Unknown] furosemide 40 mg tablet 40 mg PO DAILY #90 tabs 03/25/22 [Rx Last Taken Unknown] allopurinol 100 mg tablet 200 mg PO DAILY 06/03/22 [History Last Taken Unknown] amiodarone 200 mg tablet 200 mg PO DAILY 06/03/22 [History Last Taken Unknown] amlodipine 2.5 mg tablet 2.5 mg PO QHS 06/03/22 [History Last Taken Unknown] fluticasone 250 mcg-salmeterol 50 mcg/dose blistr powdr for inhalation (Wixela Inhub) 1 inh inhalation BID 06/03/22 [History Last Taken Unknown] insulin glargine 100 unit/mL (3 mL) subcutaneous pen (Lantus Solostar U-100 Insulin) 24 unit subcut QPM 06/03/22 [History Last Taken Unknown] linagliptin 5 mg tablet (Tradjenta) 5 mg PO DAILY 06/03/22 [History Last Taken Unknown] vitamin B12 500 mcg-folic acid 400 mcg tablet 1 tab PO DAILY 06/03/22 [History Last Taken Unknown] Allergy/AdvReac Type Severity Reaction Status Date / Time lisinopril AdvReac cough Verified 06/03/22 16:21 Family History Father CAD (coronary artery disease) Hypertension Cancer skin Mother CAD (coronary artery disease) Hypertension Diabetes Brother CAD (coronary artery disease) Sister CAD (coronary artery disease) Myocardial infarction Surgical History H/O basal cell carcinoma excision H/O cardiac radiofrequency ablation H/O coronary artery bypass surgery (08/06/04) H/O craniotomy (2008) History of ankle surgery History of cardioversion (09/29/17) History of colonoscopy History of hysterectomy History of left heart catheterization (LHC) (11/25/16) History of radiofrequency ablation procedure for cardiac arrhythmia (12/04/17) History of tonsillectomy Social History Smoking Status: Never smoker alcohol intake: never substance use type: does not use diet: diabetic caffeine: Yes Type: carbonated beverages and tea what type of physical activity do you participate in: none seatbelt use: always do you feel safe at home: Yes ROS ROS Narrative General: Denies fever/chills HENT: Denies headache, denies stuffy nose, denies sore throat EYES: Denies changes in vision Resp: Slight dry cough which has been chronic, denies shortness of breath Cardiac: Denies chest pain GI: Denies abdominal pain, chronic problems with diarrhea, denies nausea/vomiting : Denies changes in urination Extremity: Bilateral lower extremity swelling MSK: Denies weakness Neuro: Denies any numbness/tingling Heme: Denies any bleeding or bruising Skin: Denies rashes Psychiatric: No complaints voiced Vital Signs Vital Signs Vital Signs: 06/03/22 16:16 06/03/22 17:07 06/03/22 17:09 Temperature 96.9 F L Temperature Source Temporal Pulse Rate 67 62 Respiratory Rate 18 14 Respiratory Effort Normal Blood Pressure 145/69 H 163/71 H Blood Pressure Mean 94 101 Pulse Ox 98 97 Oxygen Delivery Method Room Air Room Air Room Air Weight Weight: 85.82 kg Body Mass Index (BMI) 31.4 Physical Exam Narrative General: Alert, oriented, no apparent distress HEENT: Normocephalic Eyes: Anicteric, has some erythema on the inner corner of the sclera on her right eye, extraocular movements grossly intact Neck: Supple Respiratory: Clear to auscultation bilaterally, normal respiratory effort Cardiovascular: Regular rate and rhythm GI: Soft, nontender, nondistended Extremities: 1+ bilateral lower extremity pitting edema Musculoskeletal: Moving all extremities Neuro: No overt focal neurological deficits Skin: No rashes appreciated Psych: Cooperative Results Lab / Micro Data Result Diagrams: 06/03/22 17:05 06/03/22 17:05 Labs: Laboratory Results - last 24 hr 06/03/22 17:05: WBC 6.4, RBC 3.53 L, Hgb 10.3 L, Hct 33.6 L, MCV 95.2, MCH 29.2, MCHC 30.7 L, RDW Std Deviation 50.6 H, RDW Coeff of Kelechi 14.8 H, Plt Count 215, MPV 10.9, Immature Gran % (Auto) 0.600, Neut % (Auto) 69.0, Lymph % (Auto) 19.7, [place] % (Auto) 8.5, Eos % (Auto) 1.6, Baso % (Auto) 0.6, Absolute Neuts (auto) 4.4, Absolute Lymphs (auto) 1.25, Nucleated RBC % 0 06/03/22 17:05: Sodium 137, Potassium 4.2, Chloride 108 H, Carbon Dioxide 26.0, Anion Gap 3 L, BUN 59 H, Creatinine 3.50 H, Estim Creat Clear Calc 11.34, Est GFR (MDRD) Af Amer 16 L, Est GFR (MDRD) Non-Af 13 L, BUN/Creatinine Ratio 16.9, Glucose 139 H, Calcium 9.1, Troponin I High Sens 11 Radiology Impression Chest X-Ray 06/03/22 17:09 IMPRESSION: Stable cardiomegaly. Electronically Signed: Jermaine Khan, DO at 17:26 EDT , Assessment & Plan Assessment/Plan (1) Increasing shortness of breath: (2) Acute on chronic kidney failure: (3) Chronic combined systolic and diastolic CHF (congestive heart failure): (4) Atherosclerotic heart disease of [place] coronary artery without angina pectoris: QUALIFIERS: [place] vs. transplanted heart: [place] heart Qualified Code(s): I25.10 - Atherosclerotic heart disease of [place] coronary artery without angina pectoris (5) H/O coronary artery bypass surgery: (6) Paroxysmal atrial flutter: PLAN: Plan #Acute on chronic increase in shortness of breath -Endorses shortness of breath increasing over the past month with worsening over the past week. -Suspect multifactorial with her severe pulmonary hypertension and underlying lung disease -Chest x-ray read as stable cardiomegaly, no effusions noted -Does have combined heart failure at baseline as well as asthma with acute on chronic worsening of her breathing -Admit to tele -EKG in ED w/ 1st degree AV block, LAD, LBBB, recent EKG 04/30/22 w/ sinus rhythm 1st degree AV block with LBBB observed -We will check COVID and respiratory panel -We will check BNP, cycle troponins, check TSH -Loaded with aspirin in ED, start aspirin 81 mg daily, continue statin -Most recent echocardiogram February 2021 with an EF of 40% with stage III diastolic dysfunction and mild to moderate global hypokinesis of left ventricle and severe pulmonary hypertension -We will repeat echo -Continue albuterol and home inhaler -Stress test ordered for AM -Follows w/ Dr. Rodriguez w/ pulm and Dr. Winchester w/ cardiology on outpt basis -If no other etiology identified may need to explore amiodarone as a possible contributing factor #HALEY on CKD stage IV -Baseline roughly 2.6 with most recent 3.7 -Follows with Dr. Curtis on outpt basis -Unclear etiology, will check urine studies, low threshold for nephro involvement -Holding losartan and chlorthalidone #Hx CAD s/p CABG x2 Sequential VILLAGRAN-LAD and D2 08-06-04 -Follows w/ Dr. Winchester on an outpt basis -Cardiology contacted in ED and initially contemplated LHC tomorrow but after discussing with her recommended cycle troponins and stress test in AM -Initial trop 11, continue to cycle -AM stress test -Aspirin, statin, beta-carolyn #Chronic combined heart failure -Daily weights, I's and O's -Check BNP, check echo -Continue Lasix, lower extremity edema may be due to the amlodipine as she reports weight has been roughly similar at home and she does not have effusions and does not seem to be in a heart failure exacerbation, if weight increasing her BNP elevated will consider IV Lasix. Hold amlodipine #Hx afib/flutter -s/p radio ablation Nov 2017 -On carvedilol and amiodarone -Not on AC due to history of craniotomy and GI bleed #Hx severe pulm HTN -Repeat echo #Type 2 diabetes mellitus -Glucose checks and sliding scale insulin -Continue long-acting but at reduced dose given n.p.o. at midnight and worsened kidney function -Holding home oral hypoglycemics #DVT ppx: Heparin subcu Dawna Etienne MD Time spent in the patient's overall evaluation,decision-making process, review of diagnostic data, adjustment of management, discussion with other providers, nursing nursing and ancillary staff involved in patient's care documentation, 60 minutes Charges/Coding Visit Charges Inpatient E&M: 22643 Init Hosp L2
[2022-06-03 20:21] LABS: International Normalized Ratio 1.1; Prothrombin Time (Protime)PT. 13.4 SECONDS (11.7-14.9)
[2022-06-03 20:34] LABS: BNP,B-Type NATRIURETIC PEPTIDE 191.1 pg/mL (0-100)
[2022-06-03 20:53] LABS: AST(SGOT) 13 U/L (15-37); Alanine Aminotransfer ALT/SGPT 12 U/L (13-56); Albumin, Serum 3.6 g/dL (3.2-5.0); Alkaline Phosphatase 115 U/L (45-117); Bilirubin, Direct 0.06 mg/dL (0.00-0.30); Globulin 3.3 g/dL (2.2-4.2); Magnesium 1.9 mg/dL (1.6-2.6); Protein, Total 6.9 g/dL (6.4-8.2)
[2022-06-03 21:17] LABS: Troponin-I HS 15 pg/mL (3.0-54.0)
[2022-06-03] MEDS: Budesonide Respules 0.5 MG/2 ML AMPUL.NEB. INHALATION (23:00)
[2022-06-03] MEDS: Albuterol 2.5 MG/3 ML VIAL.NEB. INHALATION (23:00)
[2022-06-03 23:20] LABS: Bedside Glucose 104 mg/dL (74-106)
[2022-06-03] MEDS: Carvedilol 6.25 MG Tablet PO (23:27)
[2022-06-03] MEDS: Atorvastatin Calcium 40 MG Tablet PO (23:27)
[2022-06-03] MEDS: Heparin Injection (Vial) 5,000 UNIT/ML VIAL 5000 UNIT SC (23:28)
[2022-06-04] VITALS (7 sets, daily range): BP systolic 111–162; BP diastolic 59–99; PULSE 56–69; RESP 16–18; TEMP 36.4–36.6; O2SAT 92–97; BMI 31.1
[2022-06-04 05:11] LABS: Absolute Lymphocyte Count 1.63 X10^3/uL (0.83-4.51); Absolute Neutrophil Count 3.9 X10^3/uL (2.0-7.7); Basophil# 0.04 X10^3/uL; Basophil% 0.6 % (0-1); Eosinophil# 0.11 X10^3/uL; Eosinophils% 1.7 % (0-5); Hematocrit 31.7 % (37-47); Hemoglobin 9.6 g/dL (12.0-15.0); Lymphocyte # 1.63 X10^3/ul (0.83-4.51); Lymphocyte % 25.9 % (19-41); Mean Corp Hgb Conc 30.3 g/dL (32-36); Mean Corpuscular Hgb 28.5 pg (27.0-32.0); Mean Corpuscular Volume 94.1 fL (81-99); Mean Platelet Vol. 10.8 fl (6.2-12.0); Monocyte# 0.58 X10^3/uL; Monocyte% 9.2 % (0-10); NRBC Flagged by Analyzer 0 % (0-5); Neutrophil % 62.1 % (47-70); Platelet Count 191 K/mm3 (150-450); RBC Distribution Width CV 14.6 % (11.6-14.6); RBC Distribution Width SD 50.3 fl (35.1-43.9); Red Blood Count 3.37 M/mm3 (4.2-5.4); White Blood Count 6.3 K/mm3 (4.4-11.0)
[2022-06-04 05:26] LABS: Urea Nitrogen, Urine 450 mg/dL (NO RANGE EST.); Urine Chloride 97 mmol/L (Not Establ.); Urine Sodium 104 mmol/L (Not Establ.)
--- NOTE | 2022-06-04 05:55 | EKG12_ITS ---
Test Reason : AM EKG Blood Pressure : / mmHG Vent. Rate : 056 BPM Atrial Rate : 056 BPM P-R Int : 236 ms QRS Dur : 138 ms QT Int : 494 ms P-R-T Axes : 067 -45 134 degrees QTc Int : 476 ms Sinus bradycardia with 1st degree A-V block Left axis deviation Left bundle branch block Abnormal ECG When compared with ECG of 03-JUN-2022 16:26, MANUAL COMPARISON REQUIRED, DATA IS UNCONFIRMED Confirmed by STAN ROSAS, EDWIN ([id number]), primer expeditor and drier BRYAN CHAVARRIA ([id number]) on 06/05/2022 9:35:02 AM Referred By: Confirmed By:EDWIN PIERCE MD
[2022-06-04 06:00] LABS: Anion Gap 4 (5-15); BUN 53 mg/dL (7-18); BUN/Creat Ratio 16.7 RATIO (10-20); Chloride 108 mmol/L (98-107); Cholesterol 162 mg/dL (200); Creatinine, Serum 3.17 mg/dL (0.55-1.02); EST Glomerular Filtration Rate 15 mL/min (>60); Est Glom Filt Rate - Afr Amer 18 mL/min (>60); Estimated Creatinine Clearance 12.52 ml/min; Glucose 117 mg/dL (74-106); High Density Lipoprotein 35 mg/dL; Potassium 4.4 mmol/L (3.5-5.1); Sodium Level 137 mmol/L (136-145); Thyroid Stim Hormone (TSH) 1.76 uIU/mL (0.358-3.74); Triglycerides 231 mg/dL; Very Low Density Lipoprotein 46 mg/dL (5-40)
[2022-06-04] MEDS: Aspirin E.C. 81 MG Tablet PO (06:09)
[2022-06-04] MEDS: 0.9% Saline Lock 10 ML Syringe IV (06:10)
[2022-06-04 06:45] LABS: Bedside Glucose 116 mg/dL (74-106)
[2022-06-04] MEDS: Budesonide Respules 0.5 MG/2 ML AMPUL.NEB. INHALATION (06:56)
[2022-06-04] MEDS: Albuterol 2.5 MG/3 ML VIAL.NEB. INHALATION ×2 (06:56→12:55)
[2022-06-04 07:52] LABS: Hemoglobin A1c 6.1 % (3.8-5.6)
[2022-06-04] MEDS: Magnesium Chloride 64 MG Delay Rel.Tablet 128 MG PO (10:51)
[2022-06-04] MEDS: Pantoprazole Sodium 40 MG Tablet PO (10:51)
[2022-06-04] MEDS: Allopurinol 100 MG Tablet PO (10:51)
[2022-06-04] MEDS: Amiodarone 200 MG Tablet PO (11:45)
--- NOTE | 2022-06-04 12:23 | STRESSREP_ITS ---
Stress Test Report Date: 06/04/2022 Procedure: Pharmacologic stress nuclear imaging study Indications: Chest pain Consent: Per the patient Procedure: The patient underwent pharmacologic (Regadenoson) evaluation with a peak heart rate of [72] beats per minute (51%predicted maximal heart rate) and a peak blood pressure of 160/74 mmHg. The baseline ECG demonstrated normal sinus rhythm, first-degree AV block, nonspecific intraventricular conduction delay. EKG during lexiscan infusion revealed no significant ischemic changes. EKG post infusion revealed no significant ischemic changes [There were no cardiac dysrhythmias pretest, during pharmacologic infusion, or recovery]. [There was no complaint of chest discomfort during pharmacologic infusion or recovery]. The examination was discontinued secondary to completion of protocol. Impression: 1. Lexiscan stress test test is negative for Lexiscan infusion induced EKG changes of ischemia. 2. Lexiscan stress test test is negative for Lexiscan infusion induced chest pain. 3. Results of the nuclear portion of the test is as below Myocardial perfusion imaging study: Technique: The patient was injected with 11 millicuries of technetium 99m Cardiolite and subsequently rest SPECT Cardiolite nuclear imaging was obtained in the horizontal long, vertical long, and short axis views. The patient underwent pharmacologic [Regadenoson 0.4mg] evaluation. Please see above for details. The patient was injected with 33.3 millicuries of technetium 99m Cardiolite and subsequently stress SPECT Cardiolite nuclear imaging was obtained in the horizontal long, vertical long, and short axis views. A gated Cardiolite study at peak stress was obtained. Interpretation: Rest and stress SPECT Cardiolite nuclear imaging status post realignment, normalization, and attenuation correction demonstrate no evidence of significant ischemia or infarction. Gated images reveal no significant regional wall motion abnormalities. The reported LVEF is 60%. Impression: 1. There is no evidence of significant ischemia or infarction. 2. Estimated ejection fraction is 60%. This note was generated with [employer] software. It may contain incorrect words, spelling, and punctuation that were not noted in checking the note before signing.
[2022-06-04 12:35] LABS: Bedside Glucose 134 mg/dL (74-106)
[2022-06-04] MEDS: Furosemide 40 MG Tablet PO (14:54)
--- NOTE | 2022-06-04 15:10 | DS.PCM_ITS ---
Providers Date of Admission: 06/03/22 Date of Discharge: 06/04/22 Primary Care Physician: Dr. Nia Uriostegui DO Reason For Visit: INCREASING SOB Diagnosis Discharge Diagnosis (1) Increasing shortness of breath: Status: Acute Code(s): R06.02 - Shortness of breath (2) Acute on chronic kidney failure: Status: Chronic Code(s): N17.9 - Acute kidney failure, unspecified; N18.9 - Chronic kidney disease, unspecified (3) Chronic combined systolic and diastolic CHF (congestive heart failure): Status: Chronic Code(s): I50.42 - Chronic combined systolic (congestive) and diastolic (congestive) heart failure (4) Atherosclerotic heart disease of [place] coronary artery without angina pectoris: Status: Chronic Code(s): I25.10 - Atherosclerotic heart disease of [place] coronary artery without angina pectoris Qualifiers: [place] vs. transplanted heart: [place] heart Qualified Code(s): I25.10 - Atherosclerotic heart disease of [place] coronary artery without angina pectoris (5) H/O coronary artery bypass surgery: Status: Chronic Code(s): Z95.1 - Presence of aortocoronary bypass graft (6) Paroxysmal atrial flutter: Status: Chronic Code(s): I48.92 - Unspecified atrial flutter Plan #Subacute on chronic increase in shortness of breath #HALEY on CKD stage IV-creatinine improved #Hx CAD s/p CABG x2 Sequential VILLAGRAN-LAD and D2 08-06-04 #Chronic combined heart failure #Hx afib/flutter #Hx severe pulm HTN #Type 2 diabetes mellitus Medications at Discharge Home Medications montelukast 10 mg tablet 10 mg PO QHS allergies 08/24/17 cholecalciferol (vitamin D3) 25 mcg (1,000 unit) tablet 1,000 unit PO DAILY 03/13 05/30 lansoprazole 30 mg capsule,delayed release 30 mg PO DAILY GERD 03/26/19 atorvastatin 40 mg tablet 40 mg PO .QOD 05/18/20 aspirin 81 mg tablet 81 mg PO Q heart [facility] 12/08/20 olmesartan 40 mg tablet 20 mg PO DAILY 01/02/21 chlorthalidone 50 mg tablet 25 mg PO DAILY 05/24/21 methscopolamine 5 mg tablet 5 mg PO DAILY stomach acid 05/24/21 Handicap Placard #1 ea 10/04/21 albuterol sulfate 90 mcg/actuation aerosol inhaler (ProAir HFA) 1 puff inhalation Q4H PRN Shortness Of Breath 10/04/21 topiramate 25 mg tablet 25 mg PO DAILY 10/04/21 magnesium oxide 400 mg (241.3 mg magnesium) tablet 400 mg PO DAILY #90 tabs 12/18/21 furosemide 40 mg tablet 40 mg PO DAILY #90 tabs 03/25/22 allopurinol 100 mg tablet 200 mg PO DAILY 06/03/22 amiodarone 200 mg tablet 200 mg PO DAILY 06/03/22 amlodipine 2.5 mg tablet 2.5 mg PO QHS 06/03/22 fluticasone 250 mcg-salmeterol 50 mcg/dose blistr powdr for inhalation (Wixela Inhub) 1 inh inhalation BID 06/03/22 insulin glargine 100 unit/mL (3 mL) subcutaneous pen (Lantus Solostar U-100 Insulin) 24 unit subcut QPM 06/03/22 linagliptin 5 mg tablet (Tradjenta) 5 mg PO DAILY 06/03/22 vitamin B12 500 mcg-folic acid 400 mcg tablet 1 tab PO DAILY 06/03/22 carvedilol 25 mg tablet (Coreg) 12.5 mg PO BID #60 tabs 06/04/22 Hospital Course Procedures - (Stress test) Summary of Care Provided Minutes Spent on Discharge: 35 Hospital Course: CASPER HU, is a 81 F with a history of chronic combined congestive heart failure, coronary artery disease status post CABG 2004, CKD, atrial fibrillation with an ablation in 2018 who presented to [facility] 06/03[facility]2022 with increasing shortness of breath over several months but worsening further over the past week.? She denies any chest pain but said that she ate a couple times has felt like she had to take a deep breath and it was hard to get an air but it would go away quickly.? Has had some swelling in her legs for the past 2 weeks which she noted since her amlodipine was moved to nighttime, possibly some increase in weight but said she stays roughly around 185.? In the ED EKG showed first-degree AV block with left axis deviation and left bundle branch block, troponins initially negative at 11 but given exertional nature of symptoms card iology called in ED for evaluation.? Initially had considered left heart cath but after evaluating in person it was recommended that enzymes be cycled and stress test in the a.m. with a cardiology consult if enzymes elevate or stress is positive.? Additionally in ED she had a creatinine of 3.5 with a baseline of 2.65 with unclear etiology. Hospitalist consulted for admission.? Stress test ordered and negative, creatinine improved with holding chlorthalidone and olmesartan. 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 Discussed at length with patient, this is a chronic problem that is being evaluated by her outpatient pulmonolo gist and pipe line maintenance supervisor and she reports she is to have PFTs which I feel like will be most beneficial. Ambulated to assess for O2 needs and did not desaturate. Highly suspect that this is multifactorial but largely due to her pulmonary hypertension worsened by her OMA and noncompliance with CPAP as she no longer even has 1. Will benefit from PFTs and following with her follow up specialist. Can discuss amiodarone as well at her follow-up on Friday but feels she has multiple other etiologies for this worsening shortness of breath. On day of discharge having no complaints at rest, no chest pain. Does have the swelling in her legs that she has had since her amlodipine dosing was changed. Weight was stable and do not suspect that she had a CHF exacerbation or an asthma exacerbation. Discharge instructions as followed: -Please keep your cardiology appointment this coming Friday.? If you have any questions or need to reschedule please call the office ( [phone]) -Please call Dr. Rodriguez's office upon discharge to schedule hospital follow-up appointment, I will be important that you follow-up in the office and that you have your pulmonary function tests redone. -Also would recommend discussing your medication amiodarone with your heart and lung doctors in regards to your breathing as it is unlikely contributory however may be worth discussing with your outpatient doctors -Please keep your cardiology appointment this coming Friday.? If you have any questions or need to reschedule please call the office ( [phone]) -Please continue checking your glucose and continue your insulin regimen as previously prescribed, if you have any glucoses less than 70 please have a small snack and call your prescribing physician for further instructions for adjustment of your insulin -Your chlorthalidone and olmesartan have been held due to an increase in your kidney function.? Would recommend repeat lab work (BMP) to evaluate your kidney function prior to your Friday appointment with cardiology as he may be able to resume 1 or both of these if kidney function remains stable.? Please call your physician to obtain an order for lab work upon discharge -Please follow-up with your kidney doctor.? You indicated that you have an appointment next Friday, would advise keeping this appointment -Please call your primary care provider's office upon discharge to schedule a hospital follow up within 1 week. -For any concerning signs or symptoms please call 911 or proceed to the nearest emergency department Physical Exam Narrative General: Alert, oriented, no apparent distress HEENT: Normocephalic Eyes: Anicteric, has some erythema on the inner corner of the sclera on her right eye, extraocular movements grossly intact Neck: Supple Respiratory: Clear to auscultation bilaterally, normal respiratory effort Cardiovascular: Regular rate and rhythm GI: Soft, nontender, nondistended Extremities: 1+ bilateral lower extremity pitting edema Musculoskeletal: Moving all extremities Neuro: No overt focal neurological deficits Skin: No rashes appreciated Psych: Cooperative Weight / BMI Weight Weight: 84.9 kg Body Mass Index (BMI) 31.1 ABG / Lab / Microbiology Data Result Diagrams: 06/04/22 04:48 06/04/22 04:48 Laboratory: Laboratory Results - last 24 hr 06/03/22 17:05: WBC 6.4, RBC 3.53 L, Hgb 10.3 L, Hct 33.6 L, MCV 95.2, MCH 29.2, MCHC 30.7 L, RDW Std Deviation 50.6 H, RDW Coeff of Kelechi 14.8 H, Plt Count 215, MPV 10.9, Immature Gran % (Auto) 0.600, Neut % (Auto) 69.0, Lymph % (Auto) 19.7, [place] % (Auto) 8.5, Eos % (Auto) 1.6, Baso % (Auto) 0.6, Absolute Neuts (auto) 4.4, Absolute Lymphs (auto) 1.25, Nucleated RBC % 0 06/03/22 17:05: Sodium 137, Potassium 4.2, Chloride 108 H, Carbon Dioxide 26.0, Anion Gap 3 L, BUN 59 H, Creatinine 3.50 H, Estim Creat Clear Calc 11.34, Est GFR (MDRD) Af Amer 16 L, Est GFR (MDRD) Non-Af 13 L, BUN/Creatinine Ratio 16.9, Glucose 139 H, Calcium 9.1, Troponin I High Sens 11 06/03/22 17:05: Magnesium 1.9, Total Bilirubin 0.30, Direct Bilirubin 0.06, AST 13 L, ALT 12 L, Alkaline Phosphatase 115, Total Protein 6.9, Albumin 3.6, Globulin 3.3 06/03/22 17:05: B-Natriuretic Peptide 191.1 H 06/03/22 17:05: PT 13.4, INR 1.1 06/03/22 20:36: Troponin I High Sens 15 06/03/22 20:43: POC Glucose 104 06/04/22 04:43: Ur Random Sodium 104, Urine Creatinine 53.90, Urine Potassium 16.0, Urine Chloride 97, Urine Urea Nitrogen 450 06/04/22 04:48: Hemoglobin A1c 6.1 H 06/04/22 04:48: Sodium 137, Potassium 4.4, Chloride 108 H, Carbon Dioxide 25.0, Anion Gap 4 L, BUN 53 H, Creatinine 3.17 H, Estim Creat Clear Calc 12.52, Est GFR (MDRD) Af Amer 18 L, Est GFR (MDRD) Non-Af 15 L, BUN/Creatinine Ratio 16.7, Glucose 117 H, Calcium 9.0, Triglycerides 231 H, Cholesterol 162, LDL Choleste rol 81, VLDL Cholesterol 46 H, HDL Cholesterol 35 L, TSH 1.76 06/04/22 04:48: WBC 6.3, RBC 3.37 L, Hgb 9.6 L, Hct 31.7 L, MCV 94.1, MCH 28.5, MCHC 30.3 L, RDW Std Deviation 50.3 H, RDW Coeff of Kelechi 14.6, Plt Count 191, MPV 10.8, Immature Gran % (Auto) 0.500, Neut % (Auto) 62.1, Lymph % (Auto) 25.9, [place] % (Auto) 9.2, Eos % (Auto) 1.7, Baso % (Auto) 0.6, Absolute Neuts (auto) 3.9, Absolute Lymphs (auto) 1.63, Nucleated RBC % 0 06/04/22 06:09: POC Glucose 116 H 06/04/22 12:10: POC Glucose 134 H Microbiology: Microbiology 06/03/22 22:40 Mucosa - Nasopharyngeal Respiratory Panel (PCR) - Final 06/03/22 20:33 Nasal Secretion SARS-CoV-2 & FLU Antigen (Rapid) - Final Radiography Diagnostic Testing: Radiology Impression Chest X-Ray 06/03/22 17:09 IMPRESSION: Stable cardiomegaly. Electronically Signed: Jermaine Khan DO at 17:26 EDT Reading Location ID and State: [facility] / [place] Tel [phone], Service support , D/C Instructions Discharge Diet: - (DASH diet) Meaningful Use Info Meaningful Use Diagnoses (Choose all that apply): None applicable Discharge Plan Admission Admit Date/Time: 06/03/22 18:46 Primary Reason for Your Visit: Increasing shortness of breath Attending Provider: Dawna Etienne Primary Care Provider: Nia Uriostegui Instructions Patient Instructions: Shortness of Breath Coping, ED Dyspnea Additional Instructions / Restrictions: DISCHARGE INSTRUCTIONS PLEASE READ *Please take this with you to your next doctors appointment* -Please keep your cardiology appointment this coming Friday. If you have any questions or need to reschedule please call the office ( [phone]) -Please call Dr. Rodriguez's office upon discharge to schedule hospital follow-up appointment, I will be important that you follow-up in the office and that you have your pulmonary function tests redone. -Also would recommend discussing your medication amiodarone with your heart and lung doctors in regards to your breathing as it is unlikely contributory however may be worth discussing with your outpatient doctors -Please keep your cardiology appointment this coming Friday. If you have any questions or need to reschedule please call the office ( [phone]) -Please continue checking your glucose and continue your insulin regimen as previously prescribed, if you have any glucoses less than 70 please have a small snack and call your prescribing physician for further instructions for adjustment of your insulin -Your chlorthalidone and olmesartan have been held due to an increase in your kidney function. Would recommend repeat lab work (BMP) to evaluate your kidney function prior to your Friday appointment with cardiology as he may be able to resume 1 or both of these if kidney function remains stable. Please call your physician to obtain an order for lab work upon discharge -Please follow-up with your kidney doctor. You indicated that you have an appointment next Friday, would advise keeping this appointment -Please call your primary care provider's office upon discharge to schedule a hospital follow up within 1 week. -For any concerning signs or symptoms please call 911 or proceed to the nearest emergency department Discharge Orders/Prescriptions Prescriptions: Continued atorvastatin 40 mg tablet 40 mg PO .QOD Label Comments: TAKE 1 TABLET BY MOUTH EVERY OTHER DAY methscopolamine 5 mg tablet 5 mg PO DAILY topiramate 25 mg tablet 25 mg PO DAILY Label Comments: TAKE 1 TABLET BY MOUTH EVERY DAY FOR 30 DAYS montelukast 10 MG tablet 10 mg PO QHS lansoprazole 30 MG capsule,delayed release(DR/EC) 30 mg PO DAILY cholecalciferol (vitamin D3) 1,000 UNIT tablet 1,000 unit PO DAILY aspirin 81 mg Tablet 81 mg PO QHS albuterol sulfate [ProAir HFA] 90 mcg/actuation HFA aerosol inhaler 1 puff INHALATION Q4H PRN (Reason: Shortness Of Breath) allopurinol 100 mg tablet 200 mg PO DAILY Label Comments: TAKE 2 TABLETS BY MOUTH EVERY DAY Tradjenta 5 mg Tablet 5 mg PO DAILY fluticasone propion-salmeterol [Wixela Inhub] 250-50 mcg/dose Blister With Device 1 inh INHALATION BID insulin glargine [Lantus Solostar U-100 Insulin] 100 unit/mL (3 mL) Insulin Pen 24 unit SUBCUT QPM vitamin [id number] acid 500-400 mcg Tablet 1 tab PO DAILY Rx Instructions: administer with a meal amiodarone 200 mg tablet 200 mg PO DAILY Rx Instructions: TAKE 1 TABLET BY MOUTH EVERY DAY amlodipine 2.5 mg tablet 2.5 mg PO QHS carvedilol [Coreg] 25 mg tablet 12.5 mg PO BID Qty: 60 0RF Rx Instructions: must administer with a meal/food. Hold for heart rate less than 60 magnesium oxide 400 mg (241.3 mg magnesium) tablet 400 mg PO DAILY Qty: 90 3RF furosemide 40 mg tablet 40 mg PO DAILY Qty: 90 3RF Held olmesartan 40 mg tablet 20 mg PO DAILY Hold Instructions: Resume on 06/12/22. Label Comments: TAKE 1 TABLET BY MOUTH EVERY DAY chlorthalidone 50 mg tablet 25 mg PO DAILY Hold Instructions: Resume on 06/12/22. No Action (DME) Handicap Placard See Rx Instructions .Route .MEDSUPPLY Qty: 1 0RF Rx Instructions: As directed; Good from 10/04/2021-10/04/2026 Referrals / Follow Up: Valencia Curtis DO [Med Staff - Consulting] - See Referral Note (Follow up next week as scheduled) Nia Uriostegui DO [Primary Care Provider] - Within 1 Week Je Rodriguez MD [Med Staff - Active Staff] - See Referral Note (Call upon discharge to schedule your hospital follow-up appointment) Lui Lombardo [employer], [employer] [Med Staff - Adv Practice Prof] - See Referral Note (Follow up as scheduled) Disposition Disposition (needs filled in before D/C Order can be placed): Home, Self Care Charges/Coding Visit Charges Inpatient E&M: 07582 Disch Hosp >30min
--- NOTE | 2022-06-04 15:31 | PHA.DC.MR ---
Pharmacy Service has performed discharge medication reconciliation for this patient. The patient's discharge medication list was reviewed for discrepancies and discrepancies were resolved. Home Medications montelukast 10 mg tablet 10 mg PO QHS allergies 08/24/17 cholecalciferol (vitamin D3) 25 mcg (1,000 unit) tablet 1,000 unit PO DAILY 03/26/19 lansoprazole 30 mg capsule,delayed release 30 mg PO DAILY GERD 03/26/19 atorvastatin 40 mg tablet 40 mg PO .QOD 05/18/20 aspirin 81 mg tablet 81 mg PO QHS heart health 12/08/20 olmesartan 40 mg tablet 20 mg PO DAILY 01/02/21 chlorthalidone 50 mg tablet 25 mg PO DAILY 05/24/21 methscopolamine 5 mg tablet 5 mg PO DAILY stomach acid 05/24/21 Handicap Placard #1 ea 10/04/21 albuterol sulfate 90 mcg/actuation aerosol inhaler (ProAir HFA) 1 puff inhalation Q4H PRN Shortness Of Breath 10/04/21 topiramate 25 mg tablet 25 mg PO DAILY 10/04/21 magnesium oxide 400 mg (241.3 mg magnesium) tablet 400 mg PO DAILY #90 tabs 12/18/21 furosemide 40 mg tablet 40 mg PO DAILY #90 tabs 03/25/22 allopurinol 100 mg tablet 200 mg PO DAILY 06/03/22 amiodarone 200 mg tablet 200 mg PO DAILY 06/03/22 amlodipine 2.5 mg tablet 2.5 mg PO QHS 06/03/22 fluticasone 250 mcg-salmeterol 50 mcg/dose blistr powdr for inhalation (Wixela Inhub) 1 inh inhalation BID 06/03/22 insulin glargine 100 unit/mL (3 mL) subcutaneous pen (Lantus Solostar U-100 Insulin) 24 unit subcut QPM 06/03/22 linagliptin 5 mg tablet (Tradjenta) 5 mg PO DAILY 06/03/22 vitamin B12 500 mcg-folic acid 400 mcg tablet 1 tab PO DAILY 06/03/22 carvedilol 25 mg tablet (Coreg) 12.5 mg PO BID #60 tabs 06/04/22
--- NOTE | 2022-06-04 15:36 | CASEMGMT ---
RN CM in to patient's room to discuss needs at discharge. Patient denies needs at discharge. Patient states she has no further questions or concerns at this time.
--- NOTE | 2022-06-04 16:05 | CHAPLAIN ---
Type of Pastoral Visit _x__ Initial Visit ___ Follow-up Visit ___ On-call Visit ___ General Patient Visit ___ Spiritual Assessment ___ Family Conference ___ Bereavement ___ Rapid Response ___ Code Blue ___ Other (describe below) Pastoral Care Referral From _x__ Patient ___ Family ___ Nurse ___ Physician ___ Executive Associate ___ Vegetable Washing Machine Operator ___ Other (describe below) Sacrament/Intervention _x__ Active listening ___ Anointing ___ Evangelical ___ Bereavement ___ Communion _x__ Lucero exploration ___ _x__ Life review _x__ Prayer ___ Reconciliation ___ Sacrament of Sick ___ Supportive presence ___ Wedding ___ Other (describe below) Pastoral Comments patient and spouse are in the room; pt is eager to talk about her situation and asks for a prayer; both talk about the surprise celebration of their 60 year marriage over the past weekend; pt is life 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
== END 2022-06-04 17:03 | disposition home or self-care (01) ==
LOC: ED 18:07 → PCU 18:48
PROVIDERS: Admitting Provider Internal Medicine; Emergency Provider Emergency Medicine; PCP Internal Medicine; Visit Provider Internal Medicine
DX: R06.02 Shortness of breath (principal); N17.9 Acute kidney failure, unspecified; I13.0 Hypertensive heart and chronic kidney disease with heart failure and stage 1 through stage 4 chronic kidney disease, or unspecified chronic kidney disease; I50.42 Chronic combined systolic (congestive) and diastolic (congestive) heart failure; I42.8 Other cardiomyopathies; I27.21 Secondary pulmonary arterial hypertension; E11.22 Type 2 diabetes mellitus with diabetic chronic kidney disease; N18.4 Chronic kidney disease, stage 4 (severe); I48.92 Unspecified atrial flutter; I48.0 Paroxysmal atrial fibrillation; Z79.4 Long term (current) use of insulin; I25.10 Atherosclerotic heart disease of native coronary artery without angina pectoris; Z86.16 Personal history of COVID-19; E78.5 Hyperlipidemia, unspecified; G47.33 Obstructive sleep apnea (adult) (pediatric); I44.0 Atrioventricular block, first degree; I44.7 Left bundle-branch block, unspecified; Z79.899 Other long term (current) drug therapy; Z79.82 Long term (current) use of aspirin; Z95.1 Presence of aortocoronary bypass graft
CPT/HCPCS: 36415; 71045; 78452; 80048; 80061; 80076; 82436; 82570; 82962; 83036; 83735; 83880; 84133; 84300; 84443; 84484; 84540; 85025; 85610; 87428; 87633; 93005; 93017; 94640; 94668; 96372; 97162; 97166; 99221; 99285; A9500; A4216; G0378; J2785

== ENCOUNTER 2022-06-06 11:33 | Outpatient (CLI) | payer MEDICARE, OTHER, SELFPAY ==
[2022-06-06 12:32] LABS: Hematocrit 34.7 % (37-47); Hemoglobin 10.4 g/dL (12.0-15.0); Mean Corpuscular Hgb 28.7 pg (27.0-32.0); Mean Corpuscular Volume 95.6 fL (81-99); Mean Platelet Vol. 11.1 fl (6.2-12.0); Platelet Count 216 K/mm3 (150-450); RBC Distribution Width CV 14.6 % (11.6-14.6); RBC Distribution Width SD 51.3 fl (35.1-43.9); Red Blood Count 3.63 M/mm3 (4.2-5.4)
[2022-06-06 12:54] LABS: PTHIN 213.9 pg/mL (18.4-80.1)
[2022-06-06 12:58] LABS: Vitamin D,25 Hydroxy 34.8 ng/mL
[2022-06-06 13:10] LABS: Albumin, Serum 3.8 g/dL (3.2-5.0); BUN 48 mg/dL (7-18); BUN/Creat Ratio 14.2 RATIO (10-20); Calcium,Total 9.1 mg/dL (8.5-10.1); Chloride 107 mmol/L (98-107); Creatinine, Serum 3.39 mg/dL (0.55-1.02); EST Glomerular Filtration Rate 14 mL/min (>60); Est Glom Filt Rate - Afr Amer 17 mL/min (>60); Ferritin 156 ng/mL (8-252); Glucose 100 mg/dL (74-106); Iron 54 ug/dL (50-170); Iron Binding Capacity,Total 299 ug/dL (250-450); PERCENT IRON SATURATION 18.1 % (15.0-55.0); Phosphorus 3.4 mg/dL (2.5-4.9); Potassium 4.3 mmol/L (3.5-5.1); Sodium Level 137 mmol/L (136-145); Uric Acid 7.6 mg/dL (2.6-6.0)
== END 2022-06-06 23:59 | disposition home or self-care (01) ==
LOC: LAB 11:35
PROVIDERS: PCP Internal Medicine; Referring Provider Internal Medicine Nephrology; Visit Provider Internal Medicine Nephrology
DX: N17.9 Acute kidney failure, unspecified (principal); N18.32 Chronic kidney disease, stage 3b; E79.0 Hyperuricemia without signs of inflammatory arthritis and tophaceous disease; D63.8 Anemia in other chronic diseases classified elsewhere
CPT/HCPCS: 36415; 80069; 82306; 82728; 83540; 83550; 83970; 84550; 85027

== ENCOUNTER → 2022-06-11 | Outpatient (CLI) | payer MEDICARE, OTHER, SELFPAY ==
[2022-06-11 13:16] LABS: Albumin, Serum 3.5 g/dL (3.2-5.0); BUN 59 mg/dL (7-18); Calcium,Total 9.2 mg/dL (8.5-10.1); Chloride 106 mmol/L (98-107); Creatinine, Serum 3.47 mg/dL (0.55-1.02); EST Glomerular Filtration Rate 13 mL/min (>60); Est Glom Filt Rate - Afr Amer 16 mL/min (>60); Glucose 92 mg/dL (74-106); Phosphorus 4.2 mg/dL (2.5-4.9); Potassium 4.4 mmol/L (3.5-5.1); Sodium Level 140 mmol/L (136-145)
== END | disposition home or self-care (01) ==
LOC: POLAB3 11:47
PROVIDERS: PCP Internal Medicine; Visit Provider Internal Medicine Nephrology
DX: N18.4 Chronic kidney disease, stage 4 (severe) (principal)
CPT/HCPCS: 36415; 80069

== ENCOUNTER → 2022-06-21 | Outpatient (CLI) | payer MEDICARE, OTHER, SELFPAY ==
--- NOTE | 2022-06-21 12:59 | ECHOCS_ITS ---
Reason For Study: ASHD, CHF Procedure This was a 2D Doppler, Color Flow transthoracic echocardiogram. The study was technically difficult. Contrast injection was performed. Left Ventricle Normal LV size. Mild concentric left ventricular hypertrophy. The estimated ejection fraction is 50 %. Stage 3 diastolic dysfunction. No regional wall motion abnormalities noted. Right Ventricle Moderately dilated right ventricle. Mild global right ventricular systolic dysfunction. Atria The left atrium is severely enlarged. The right atrium is mildly enlarged. Mitral Valve There is moderate mitral annular calcification. Mild (1+) eccentric mitral valve insufficiency. Tricuspid Valve Normal tricuspid valve. Moderate (2+) tricuspid valve insufficiency. Pulmonary artery systolic pressure is 80 mmHg. Severe pulmonary hypertension. Great Vessels Normal aortic root. The pulmonary artery is normal size. Normal inferior vena cava. Pericardium/Pleural No pericardial effusion. Medication 22 gauge I.V. with prn adaptor inserted into left arm. Diluted definity 2ml given slow IV push to enhance endocardial definition. MMode/2D Measurements & Calculations LVIDd: 4.4 cm IVSd: 1.2 cm Ao root diam: 3.7 cm LVIDs: 3.7 cm LVPWd: 1.4 cm LA dimension: 5.7 cm RVDd: 4.1 cm FS: 15.3 % LAV(MOD-bp): 87.3 ml LVAd ap4: 33.8 cm2 SV(MOD-sp4): 67.4 ml LAV(MOD-bp) Indexed: 45.6 ml/m2 LVLd ap4: 7.7 cm LAV(MOD-sp2): 84.0 ml EDV(MOD-sp4): 115.9 ml LAV(MOD-sp4): 91.8 ml EDV(sp4-el): 125.5 ml LVAs ap4: 18.8 cm2 LVLs ap4: 6.3 cm ESV(MOD-sp4): 48.5 ml ESV(sp4-el): 47.4 ml EF(MOD-sp4): 58.1 % EF(sp4-el): 62.3 % SV(sp4-el): 78.1 ml LA A4 area: 27.4 cm2 RA A4 area: 21.3 cm2 Time Measurements MV dec time: 0.15 sec Doppler Measurements & Calculations MV E max [place]: 122.9 cm/sec Lat Peak E' [place]: 8.1 cm/sec Med Peak E' [place]: 4.1 cm/sec MV A max [place]: 46.1 cm/sec E/E' lat: 15.2 E/E' med: 29.8 MV E/A: 2.7 MV V2 max: 174.7 cm/sec MV P1/2t max [place]: 176.0 cm/sec Ao V2 max: 147.3 cm/sec MV max P.2 mmHg MV P1/2t: 58.9 msec Ao max P.7 mmHg MV V2 mean: 63.7 cm/sec MV dec slope: 874.7 cm/sec2 Ao V2 mean: 104.1 cm/sec MV mean P.3 mmHg Ao mean P.8 mmHg MV V2 VTI: 42.5 cm MVA(P1/2t): 3.7 cm2 Ao V2 VTI: 33.9 cm AV (velocity ratio): 0.70 LV V1 max: 95.4 cm/sec TR max [place]: 437.1 cm/sec LV V1 max P.6 mmHg TR max P.4 mmHg LV V1 mean P.2 mmHg LV V1 mean: 70.8 cm/sec LV V1 VTI: 23.8 cm ECHO/Echo Complete W/ Contrast Interpretation Summary Normal LV size. The estimated ejection fraction is 50 %. Stage 3 diastolic dysfunction. Mild concentric left ventricular hypertrophy. Moderately dilated right ventricle. Mild global right ventricular systolic dysfunction. Moderate (2+) tricuspid valve insufficiency. Pulmonary artery systolic pressure is 80 mmHg. Severe pulmonary hypertension. Contrast injection was performed. Ordering Physician: Lui Lombardo Referring Physician: Nia Uriostegui M.D. Performed By: Rolly Valdez RCS
== END | disposition home or self-care (01) ==
LOC: CVS 12:58
PROVIDERS: PCP Internal Medicine; Referring Provider Nurse Practitioner Family; Visit Provider Nurse Practitioner Family
DX: I25.10 Atherosclerotic heart disease of native coronary artery without angina pectoris (principal); I27.21 Secondary pulmonary arterial hypertension; I36.1 Nonrheumatic tricuspid (valve) insufficiency; I51.89 Other ill-defined heart diseases
CPT/HCPCS: 93306; Q9957; A4216; C8929

== ENCOUNTER 2022-06-25 12:38 | Outpatient (CLI) | payer MEDICARE, OTHER, SELFPAY ==
--- NOTE | 2022-06-25 12:41 | VDUE_ITS ---
Reason For Study: Pre Op encounter for possible dialysis fistula creation. Right Arm Left Arm Right Cephalic Vein at the wrist measures Left Cephalic Vein at the wrist measures 0.19 x 0.22 cm. 0.17 x 0.19 cm. Right Cephalic Vein in the forearm measures Left Cephalic Vein in the forearm measures 0.18 x 0.23 cm. 0.22 x 0.24 cm. Right Cephalic Vein below antecub measures Left Cephalic Vein below antecub measures 0.23 x 0.23 cm. 0.25 x 0.26 cm. Right Cephalic Vein above antecub measures Left Cephalic Vein above antecub measures 0.29 x 0.32 cm. 0.17 x 0.19 cm. Right Cephalic Vein mid bicep measures 0.29 Left Cephalic Vein at mid bicep measures x 0.30 cm. 0.28 x 0.28 cm. Right Cephalic Vein at the shoulder measures Left Cephalic Vein at the shoulder measures 0.29 x 0.29 cm. 0.29 x 0.31 cm. Right Basilic Vein at the origin measures Basilic vein at origin measures 0.32 x 0.31 0.53 x 0.53 cm. cm. Right Basilic Vein mid bicep measures 0.45 x Basilic vein at bicep measures 0.23 x 0.26 0.47 cm. cm. Right Basilic Vein above antecub measures Basilic vein above antecub measures 0.16 x 0.58 x 0.59 cm. 0.18 cm. Right Brachial artery mid bicep measures Left Brachial artery mid bicep measures 0.34 0.39 x 0.37 cm. with a PSV of 140.2 cm/s. x 0.33 cm. with a PSV of 100.8 cm/s. Right Radial artery mid forearm measures Left Radial artery mid forearm measures 0.16 0.11 x 0.13 cm. with a PSV of 62.5 cm/s. x 0.17 cm. with a PSV of 109.4 cm/s. VL/Dialysis Vein Map PRE-OP BILAT Interpretation Summary Patent and compressible bilateral upper extremity cephalic and basilic veins wi th dimensions as noted Normal diameter and flow bilateral brachial arteries Bilateral radial arteries patent though small Ordering Physician: Je Ceron Referring Physician: Je Ceron Performed By: Sukumar Arteaga RVT ???
== END 2022-06-25 23:59 | disposition home or self-care (01) ==
LOC: CVS 12:40
PROVIDERS: PCP Internal Medicine; Referring Provider Surgery; Visit Provider Surgery
DX: Z01.818 Encounter for other preprocedural examination (principal); N17.9 Acute kidney failure, unspecified; N18.4 Chronic kidney disease, stage 4 (severe); R06.02 Shortness of breath
CPT/HCPCS: 93985

== ENCOUNTER → 2022-07-18 | Outpatient (CLI) | payer MEDICARE, OTHER, SELFPAY ==
[2022-07-18 15:34] LABS: Absolute Lymphocyte Count 1.74 X10^3/uL (0.83-4.51); Absolute Neutrophil Count 5.6 X10^3/uL (2.0-7.7); Basophil# 0.05 X10^3/uL; Basophil% 0.6 % (0-1); Eosinophil# 0.12 X10^3/uL; Eosinophils% 1.4 % (0-5); Hematocrit 34.8 % (37-47); Hemoglobin 10.4 g/dL (12.0-15.0); Lymphocyte # 1.74 X10^3/ul (0.83-4.51); Lymphocyte % 20.6 % (19-41); Mean Corp Hgb Conc 29.9 g/dL (32-36); Mean Corpuscular Hgb 28.7 pg (27.0-32.0); Mean Corpuscular Volume 96.1 fL (81-99); Mean Platelet Vol. 10.6 fl (6.2-12.0); Monocyte% 10.6 % (0-10); NRBC Flagged by Analyzer 0 % (0-5); Neutrophil # 5.61 X10^3/uL (2.7-7.7); Neutrophil % 66.3 % (47-70); Platelet Count 224 K/mm3 (150-450); RBC Distribution Width CV 14.8 % (11.6-14.6); RBC Distribution Width SD 52.2 fl (35.1-43.9); Red Blood Count 3.62 M/mm3 (4.2-5.4); White Blood Count 8.5 K/mm3 (4.4-11.0)
[2022-07-18 16:27] LABS: Anion Gap 5 (5-15); BUN 37 mg/dL (7-18); BUN/Creat Ratio 11.7 RATIO (10-20); Calcium,Total 8.6 mg/dL (8.5-10.1); Chloride 110 mmol/L (98-107); Creatinine, Serum 3.15 mg/dL (0.55-1.02); EST Glomerular Filtration Rate 15 mL/min (>60); Est Glom Filt Rate - Afr Amer 18 mL/min (>60); Glucose 110 mg/dL (74-106); Potassium 4.3 mmol/L (3.5-5.1); Sodium Level 140 mmol/L (136-145)
== END | disposition home or self-care (01) ==
LOC: LAB 14:41
PROVIDERS: PCP Internal Medicine; Referring Provider Nurse Practitioner Family; Visit Provider Nurse Practitioner Family
DX: R60.9 Edema, unspecified (principal); N17.9 Acute kidney failure, unspecified; I50.42 Chronic combined systolic (congestive) and diastolic (congestive) heart failure; N18.9 Chronic kidney disease, unspecified; I25.10 Atherosclerotic heart disease of native coronary artery without angina pectoris
CPT/HCPCS: 36415; 80048; 85025

== ENCOUNTER → 2022-07-23 | Outpatient (CLI) | payer MEDICARE, OTHER, SELFPAY | END | disposition home or self-care (01) | LOC: PSN 11:58 | PROVIDERS: PCP Internal Medicine; Referring Provider Nurse Practitioner Family; Visit Provider Nurse Practitioner Family | DX: I48.92 Unspecified atrial flutter (principal); R00.1 Bradycardia, unspecified | CPT/HCPCS: 93225; 93226 ==

== ENCOUNTER 2022-08-07 06:00 | Day surgery (SDC) | payer MEDICARE, OTHER, SELFPAY ==
[2022-08-03 09:51] LABS: Hemoglobin 10.5 g/dL (12.0-15.0); Mean Corp Hgb Conc 30.9 g/dL (32-36); Mean Corpuscular Hgb 29.1 pg (27.0-32.0); Mean Corpuscular Volume 94.2 fL (81-99); Mean Platelet Vol. 10.3 fl (6.2-12.0); Platelet Count 195 K/mm3 (150-450); RBC Distribution Width CV 14.6 % (11.6-14.6); RBC Distribution Width SD 50.3 fl (35.1-43.9); Red Blood Count 3.61 M/mm3 (4.2-5.4); White Blood Count 6.9 K/mm3 (4.4-11.0)
[2022-08-03 10:12] LABS: Anion Gap 4 (5-15); BUN 39 mg/dL (7-18); BUN/Creat Ratio 13.9 RATIO (10-20); Calcium,Total 9.4 mg/dL (8.5-10.1); Chloride 110 mmol/L (98-107); EST Glomerular Filtration Rate 17 mL/min (>60); Est Glom Filt Rate - Afr Amer 21 mL/min (>60); Glucose 122 mg/dL (74-106); Potassium 4.8 mmol/L (3.5-5.1); Sodium Level 140 mmol/L (136-145)
--- NOTE | 2022-08-07 07:24 | PCM.HP.BLA ---
History and Physical Date of Admission: 08/07/22 Visit Reasons: FISTULA Chief Complaint: FISTULA Allergies lisinopril Adverse Reaction (Verified 07/17/22 14:06) cough Medications montelukast 10 mg tablet 10 mg PO QHS allergies 08/24/17 [History Confirmed 07/17/22] cholecalciferol (vitamin D3) 25 mcg (1,000 unit) tablet 1,000 unit PO DAILY 03/26/19 [History Confirmed 07/17/22] lansoprazole 30 mg capsule,delayed release 30 mg PO DAILY GERD 03/26/19 [History Confirmed 07/17/22] atorvastatin 40 mg tablet 40 mg PO .QOD 05/18/20 [History Confirmed 07/17/22] aspirin 81 mg tablet 81 mg PO QHS heart health 12/08/20 [History Confirmed 07/17/22] methscopolamine 5 mg tablet 5 mg PO DAILY stomach acid 05/24/21 [History Confirmed 07/17/22] Handicap Placard #1 ea 10/04/21 [Rx Confirmed 07/17/22] albuterol sulfate 90 mcg/actuation aerosol inhaler (ProAir HFA) 1 puff inhalation Q4H PRN Shortness Of Breath 10/04/21 [History Confirmed 06/07/22] topiramate 25 mg tablet 25 mg PO DAILY 10/04/21 [History Confirmed 07/17/22] magnesium oxide 400 mg (241.3 mg magnesium) tablet 400 mg PO DAILY #90 tabs 12/18/21 [Rx Confirmed 07/17/22] allopurinol 100 mg tablet 200 mg PO DAILY 06/03/22 [History Confirmed 07/17/22] amiodarone 200 mg tablet 200 mg PO DAILY 06/03/22 [History Confirmed 07/17/22] fluticasone 250 mcg-salmeterol 50 mcg/dose blistr powdr for inhalation (Wixela Inhub) 1 inh inhalation BID 06/03/22 [History Confirmed 07/17/22] insulin glargine 100 unit/mL (3 mL) subcutaneous pen (Lantus Solostar U-100 Insulin) 24 unit subcut QPM 06/03/22 [History Confirmed 07/17/22] linagliptin 5 mg tablet (Tradjenta) 5 mg PO DAILY 06/03/22 [History Confirmed 06/07/22] vitamin B12 500 mcg-folic acid 400 mcg tablet 1 tab PO DAILY 06/03/22 [History Confirmed 07/17/22] furosemide 40 mg tablet 80 mg PO DAILY #90 tabs 07/11/22 [Rx Confirmed 07/17/22] carvedilol 25 mg tablet (Coreg) 12.5 mg PO BID #60 tabs 07/12/22 [Rx Confirmed 07/17/22] PFSH Medical History Acute on chronic anemia Acute on chronic kidney failure Asthma Atherosclerotic heart disease of [place] coronary artery without angina pectoris Atrial enlargement, left Benign paroxysmal positional vertigo Benign positional vertigo Bruit (arterial) Chronic combined systolic and diastolic CHF (congestive heart failure) Colon polyps Contusion of left shoulder COVID-19 virus detected (02/26/20) Diabetes mellitus type 2 in obese Essential (primary) hypertension GERD (gastroesophageal reflux disease) Gout Grade III diastolic dysfunction Head contusion History of non-ST elevation myocardial infarction (NSTEMI) (04/2017) HLD (hyperlipidemia) Injury of femoral artery Iron deficiency anemia refractory to iron therapy Lower GI bleed (03/2019) Meningioma New onset atrial flutter (09/29/17) Non-ischemic cardiomyopathy Non-ST elevation myocardial infarction (NSTEMI) due to mismatch of myocardial oxygen supply and demand (11/2016) Obesity Other cerebral infarction Pain, lower extremity Paroxysmal atrial fibrillation Paroxysmal atrial flutter Partial symptomatic epilepsy with complex partial seizures, intractable, 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 Pseudoaneurysm following procedure Renal insufficiency Secondary pulmonary arterial hypertension SOB (shortness of breath) Surgical History H/O basal cell carcinoma excision H/O cardiac radiofrequency ablation H/O coronary artery bypass surgery (08/06/04) H/O craniotomy (2008) History of ankle surgery History of cardioversion (09/29/17) History of colonoscopy History of hysterectomy History of left heart catheterization (LHC) (11/25/16) History of radiofrequency ablation procedure for cardiac arrhythmia (12/04/17) History of tonsillectomy Family History Father CAD (coronary artery disease) Hypertension Cancer skinMother CAD (coronary artery disease) Hypertension DiabetesBrother CAD (coronary artery disease)Sister CAD (coronary artery disease) Myocardial infarction Social History Smoking Status: Never smoker alcohol intake: never substance use type: does not use diet: diabetic caffeine: Yes Type: carbonated beverages and tea what type of physical activity do you participate in: none seatbelt use: always do you feel safe at home: Yes HPI HPI HPI: 81-year-old female was referred by Dr. Natacha Juarez for surgical consultation regarding chronic kidney disease stage IV. Written compromise surgical consult recommendations will return to her. On June 25, 2022 she had bilateral upper extremity vein mapping. I have personally reviewed those images and results. Bilateral cephalic veins of the upper arms are borderline. The right upper arm basilic vein is most dominant. The patient is right arm dominant. Long-term type II diabetic. She has had heart work and bypass she has had a stroke she has had multiple peripheral IVs in place she does not remember any central devices. She presents now because of stage IV chronic renal disease. June 25, 2022 Reason For Study: Pre Op encounter for possible dialysis fistula creation. Right Arm? Left Arm Right Cephalic Vein at the wrist measures? Left Cephalic Vein at the wrist measures 0.19 x 0.22 cm.? 0.17 x 0.19 cm. Right Cephalic Vein in the forearm measures? Left Cephalic Vein in the forearm measures 0.18 x 0.23 cm.? 0.22 x 0.24 cm. Right Cephalic Vein below antecub measures ? Left Cephalic Vein below antecub measures 0.23 x 0.23 cm.? 0.25 x 0.26 cm. Right Cephalic Vein above antecub measures ? Left Cephalic Vein above antecub measures 0.29 x 0.32 cm.? 0.17 x 0.19 cm. Right Cephalic Vein mid bicep measures 0.29? Left Cephalic Vein at mid bicep measures x 0.30 cm. ? 0.28 x 0.28 cm. Right Cephalic Vein at the shoulder measures ? Left Cephalic Vein at the shoulder measures 0.29 x 0.29 cm.? 0.29 x 0.31 cm. Right Basilic Vein at the origin measures? Basilic vein at origin measures 0.32 x 0.31 0.53 x 0.53 cm.? cm. Right Basilic Vein mid bicep measures 0.45 x ? Basilic vein at bicep measures 0.23 x 0.26 0.47 cm. ? cm. Right Basilic Vein above antecub measures? Basilic vein above antecub measures 0.16 x 0.58 x 0.59 cm.? 0.18 cm. Right Brachial artery mid bicep measures ? Left Brachial artery mid bicep measures 0.34 0.39 x 0.37 cm. with a PSV of 140.2 cm/s.? x 0.33 cm. with a PSV of 100.8 cm/s. Right Radial artery mid forearm measures ? Left Radial artery mid forearm measures 0.16 0.11 x 0.13 cm. with a PSV of 62.5 cm/s. ? x 0.17 cm. with a PSV of 109.4 cm/s. VL/Dialysis Vein Map PRE-OP BILAT Interpretation Summary Patent and compressible bilateral upper extremity cephalic and basilic veins with dimensions as noted ? Normal diameter and flow bilateral brachial arteries ? Bilateral radial arteries patent though small ? ? Ordering Physician: Je Ceron Referring Physician: Je Ceron Performed By: Sukumar Arteaga RVT General General: Yes fatigue; No weight change, appetite, colon cancer, breast cancer or weakness HEENT HEENT: No difficulty swallowing, eye injury, eye surgery, swollen glands or hoarseness Endo Endocrine: Yes diabetes mellitus; No thyroid disease, thyroid cancer, Hair loss, heat intolerance or cold intolerance Skin Skin: No rash or changing moles Breast Breast: No left breast lump, right breast lump, nipple discharge, breast pain, abnormal mammogram, abnormal US or breast enlargement Musc Musculoskeletal: Yes gout; No back problems, arthritis, rheumatoid arthritis or joint pain Cardio Cardiovascular: Yes murmur, heart disease, atrial fibrillation and high blood pressure; No pacemaker, heart attack, heart stent, palpitations, shortness of breat with exertion or chest pain Psych Psychiatric: No depression, anxiety or hearing voices Resp Respiratory: Yes shortness of breath, Yes sleep apnea, Yes cough, No COPD, Yes asthma, No emphysema and No wheezing Gastro Gastrointestinal: No abdominal pain, No nausea or vomiting, No diarrhea, No constipation, No blood in stool, No acid reflux, No hemorrhoids, No ulcers, No gallbladder problem and No black,tarry stools [place] Hematologic: No blood thinners, No blood disorders, No bleeding, No anemia and No blood clots Neuro Neurologic: No system reviewed and no additional complaints, except as documented, No as per HPI, No abnormal gait, No abnormal hearing, No abnormal movements, No abnormal speech, No behavioral changes, No burning sensations, No confusion, No convulsions, No disequilibrium, No dizziness, No localized weakness, No frequent falls, No headache(s), No lack of coordination, No loss of vision, No memory loss, No numbness, No other visual disturbances, No radicular pain, No restless legs, No sensory deficit, No syncope, No tingling, No tremor(s), No weakness and No other Exam Const General: cooperative, comfortable and no acute distress Nutritional Appearance: overweight Orientation: alert, awake and oriented x3 [facility] Head: normal to inspection Eyes General: appearance normal, both eyes and all related structures Neck Neck: normal visual inspection Chest Chest palpation & inspection: normal inspection of the chest Resp Effort & Inspection: normal respiratory effort Auscultation: clear to auscultation bilaterally Cardio Rate: regular rate Rhythm: regular rhythm Other: Bilateral radial pulses 2+. Bilateral brachial pulses 3+. GI Palpation: soft Other: Nontender Musc Cervical Spine: normal cervical lordosis Skin General: no rashes or lesions noted Neuro General: patient alert, patient awake and patient oriented x3 Extrem Other: Significant nonpitting bilateral lower extremity edema I have ultrasound inspected bilateral forearms bilateral upper arms with duplex imaging. The cephalic veins bilaterally actually appear to be very small and whereas in the antecubital area they may be slightly bigger in the mid to proximal forearm and in the mid upper arm area the cephalic veins become very definitive. The left upper arm basilic vein also was quite small. Only the right upper arm basilic vein appears to be of adequate caliber Psych Appearance: grossly normal Assessment and Plan Assessment and Plan (1) Acute on chronic kidney failure: Status: Chronic Plan: 81-year-old female. Her venous access sites unfortunately are very challenging. The best site that she has is in the right upper arm basilic vein. This is her dominant arm. I have proposed for her stage I right upper extremity basilic vein to brachial artery arteriovenous fistula creation and we have discussed technique benefit risk complication alternatives. No guarantees of success have been provided. The patient is very much aware that she will in the future required a stage II transposition of the vein in order to complete the fistula creation. Both she and her have had an opportunity to ask and have questions answered. We briefly discussed benefit risk of peritoneal dialysis catheters as well. She is electing to schedule and proceed as noted. I appreciate the opportunity of assisting with her surgical care. Copy: Dr. Natacha Ceron M.D., F.A.C.S. I have examined the patient and the H&P has been reviewed. There are no clinical changes since date of exam. Je Ceron M.D., F.A.C.S.
--- NOTE | 2022-08-07 07:25 | DCINST_ITS ---
Discharge Instructions Procedure Fistula Diet Discharge Diet: Renal Diet Activity Discharge Activity: May Not Drive (for 2-3 days or while taking narcotic pain medications.), May Shower and May Take a Tub Bath (in 5 days.) Lifting Restrictions: 5 pounds Keep extremity elevated above heart level: - (Keep arm elevated above the heart level for 3 days.) Additional Activity Instructions:: Exercise your right hand with a stress ball to assist with maturation of the fistula Dressing / Incision Call your doctor if your incision/area has: Continuous Slow Oozing, Sudden Increased Bleeding (apply pressure and call your doctor.), Increased Pain/ Swelling, Increased Redness and Foul Smelling Discharge Call your doctor if you observe: Fever of 101 or Higher Suture Line Care: Avoid Pulling/Pushing and Avoid Pinching/Bending Cleanse incision/area with: Keep Dressing Clean & Dry Additional Dressing/Incision Instructions:: Change or remove dressing in two days. May protect with a gauze bandaid. Follow Up Care Please Follow Up With: Je Ceron MD When: Call [phone] to make an appointment for approximately 7-10 days for fistula evaluation Test Results: Test results from this visit will be discussed in further detail at your follow- up appointment, if applicable. Discharge Plan Admission Attending Provider: Je Ceron Primary Care Provider: Nia Uriostegui Consulting Providers: Jeramy Neely Discharge Orders/Prescriptions Prescriptions: No Action atorvastatin 40 mg tablet 40 mg PO .QOD Patient Comments: TAKE 1 TABLET BY MOUTH EVERY OTHER DAY methscopolamine 5 mg tablet 5 mg PO DAILY topiramate 25 mg tablet 25 mg PO DAILY Patient Comments: TAKE 1 TABLET BY MOUTH EVERY DAY FOR 30 DAYS (DME) Handicap Placard See Rx Instructions .Route .MEDSUPPLY Qty: 1 0RF Rx Instructions: As directed; Good from 10/04/2021-10/04/2026 montelukast 10 MG tablet 10 mg PO QHS lansoprazole 30 MG capsule,delayed release(DR/EC) 30 mg PO DAILY cholecalciferol (vitamin D3) 1,000 UNIT tablet 1,000 unit PO DAILY aspirin 81 mg Tablet 81 mg PO QHS albuterol sulfate [ProAir HFA] 90 mcg/actuation HFA aerosol inhaler 1 puff INHALATION Q4H PRN (Reason: Shortness Of Breath) allopurinol 100 mg tablet 200 mg PO DAILY Patient Comments: TAKE 2 TABLETS BY MOUTH EVERY DAY Tradjenta 5 mg Tablet 5 mg PO DAILY fluticasone propion-salmeterol [Wixela Inhub] 250-50 mcg/dose Blister With Device 1 inh INHALATION BID insulin glargine [Lantus Solostar U-100 Insulin] 100 unit/mL (3 mL) Insulin Pen 24 unit SUBCUT QPM vitamin I76-idyop acid 500-400 mcg Tablet 1 tab PO DAILY Rx Instructions: administer with a meal amiodarone 200 mg tablet 200 mg PO DAILY Rx Instructions: TAKE 1 TABLET BY MOUTH EVERY DAY magnesium oxide 400 mg (241.3 mg magnesium) tablet 400 mg PO DAILY Qty: 90 3RF furosemide 40 mg tablet 80 mg PO DAILY Qty: 90 3RF carvedilol 6.25 mg tablet 6.25 mg PO BID Qty: 180 3RF Rx Instructions: must administer with a meal/food Referrals / Follow Up: Nia Uriostegui DO [Primary Care Provider] - Disposition Disposition (needs filled in before D/C Order can be placed): Home, Self Care
[2022-08-07 07:48] LABS: Bedside Glucose 130 mg/dL (74-106)
[2022-08-07] MEDS: Heparin Injection (Vial) 5,000 UNIT/ML VIAL 5000 UNIT (08:30)
[2022-08-07] MEDS: Bupivacaine Mpf 0.5% 30 ML VIAL (08:30)
[2022-08-07] MEDS: Lidocaine 1% (30 ml sdv) 30 ML Vial (08:30)
--- NOTE | 2022-08-07 08:31 | PCM.OPRPT ---
Report of Operation Date of Procedure: 08/07/22 Pre-Operative Diagnosis: Chronic renal failure Post-Operative Diagnosis: Same Surgery/Procedure Performed:: Stage I right upper extremity basilic vein to brachial artery arteriovenous hemodialysis fistula creation Description of Surgical Findings:: Timeout informed consent was obtained. 81-year-old female was taken to the operating placed on the table underwent monitored anesthesia care. Clean procedure no antibiotics required. The right upper extremity was sterilely prepped and draped. 1% lidocaine mixed 50-50 with 0.5% Marcaine was used as a local anesthetic. A total of 6 cc was used. Ultrasound mapping of the basilic vein was performed preprocedure. Longitudinal incision was made directly over the vein sharp and blunt dissection was used to harvest the vein then sharp blunt dissection used to identify the brachial artery. In this position particular patient they were directly over top of each other. The patient received 7000 units of heparin. After adequate circulation time peripheral vascular clamps were placed on the brachial artery. An 11 blade was used to make a slightly oblique arteriotomy. The vein had been slightly spatulated. A end-to-side venous to arterial anastomosis was created with a running 7-0 Prolene. Hemostasis was intact. There was excellent flow throughout the vein. Patient received 20 mg of protamine. Deep tissue was approximated interrupted 3-0 Vicryl. Skin edges approximated running subicular 4 Monocryl. Telfa and tape dressings applied. Sponge and instrument and needle counts were reported to the surgeon to be correct. Specimens none. Drains none. Blood loss minimal. The patient was taken to the recovery room in satisfactory addition without apparent complication Je Ceron M.D., F.A.C.S. Surgeon: Je Ceron Type of Anesthesia: Local MAC
[2022-08-07 08:49] VITALS: BP 142/64; BP 174/74; PULSE 62; RESP 16; TEMP 36.4; O2SAT 98
[2022-08-07 08:55] VITALS: BP 144/60; BP 174/74; PULSE 61; RESP 16; O2SAT 99
[2022-08-07 09:00] VITALS: BP 133/57; BP 174/74; PULSE 60; RESP 14; O2SAT 95
[2022-08-07 09:06] VITALS: BP 137/62; BP 174/74; PULSE 61; RESP 16; TEMP 36.6; O2SAT 95
[2022-08-07 09:18] VITALS: BP 174/74
[2022-08-07 10:07] VITALS: BP 130/61; BP 174/74; PULSE 70; RESP 16; TEMP 36.2; O2SAT 96
== END 2022-08-07 10:10 | disposition home or self-care (01) ==
LOC: SDC 07:20 → AC 07:21
PROVIDERS: PCP Internal Medicine; Referring Provider Internal Medicine; Visit Provider Surgery
PROC: (CPT 36821; principal; 2022-08-07 07:15)
DX: I13.0 Hypertensive heart and chronic kidney disease with heart failure and stage 1 through stage 4 chronic kidney disease, or unspecified chronic kidney disease (principal); N17.9 Acute kidney failure, unspecified; I50.42 Chronic combined systolic (congestive) and diastolic (congestive) heart failure; I42.8 Other cardiomyopathies; E11.22 Type 2 diabetes mellitus with diabetic chronic kidney disease; N18.4 Chronic kidney disease, stage 4 (severe); Z79.84 Long term (current) use of oral hypoglycemic drugs; I25.10 Atherosclerotic heart disease of native coronary artery without angina pectoris; E78.5 Hyperlipidemia, unspecified; Z86.16 Personal history of COVID-19; Z79.82 Long term (current) use of aspirin
CPT/HCPCS: 36821; 01844; 36415; 80048; 82962; 85027; A4648; J7040; J2405

== ENCOUNTER 2022-08-29 08:20 | Day surgery (SDC) | payer MEDICARE, OTHER, SELFPAY ==
[2022-08-16 13:53] LABS: Absolute Lymphocyte Count 1.66 X10^3/uL (0.83-4.51); Absolute Neutrophil Count 7.3 X10^3/uL (2.0-7.7); Basophil# 0.03 X10^3/uL; Basophil% 0.3 % (0-1); Eosinophil# 0.08 X10^3/uL; Eosinophils% 0.8 % (0-5); Hematocrit 34.2 % (37-47); Hemoglobin 10.6 g/dL (12.0-15.0); Lymphocyte # 1.66 X10^3/ul (0.83-4.51); Lymphocyte % 16.3 % (19-41); Mean Corpuscular Hgb 29.1 pg (27.0-32.0); Mean Platelet Vol. 10.5 fl (6.2-12.0); Monocyte# 1.01 X10^3/uL; Monocyte% 9.9 % (0-10); NRBC Flagged by Analyzer 0 % (0-5); Neutrophil % 71.5 % (47-70); Platelet Count 235 K/mm3 (150-450); RBC Distribution Width CV 14.8 % (11.6-14.6); RBC Distribution Width SD 51.3 fl (35.1-43.9); Red Blood Count 3.64 M/mm3 (4.2-5.4); White Blood Count 10.2 K/mm3 (4.4-11.0)
[2022-08-16 14:16] LABS: Anion Gap 4 (5-15); BUN 46 mg/dL (7-18); BUN/Creat Ratio 16.2 RATIO (10-20); Calcium,Total 8.5 mg/dL (8.5-10.1); Chloride 107 mmol/L (98-107); Creatinine, Serum 2.84 mg/dL (0.55-1.02); EST Glomerular Filtration Rate 17 mL/min (>60); Est Glom Filt Rate - Afr Amer 21 mL/min (>60); Glucose 119 mg/dL (74-106); Potassium 4.1 mmol/L (3.5-5.1); Sodium Level 140 mmol/L (136-145)
[2022-08-29] VITALS (7 sets, daily range): BP systolic 132–169; BP diastolic 57–64; PULSE 54–76; RESP 16–18; TEMP 36.1–36.7; O2SAT 93–98; BMI 32.9
--- NOTE | 2022-08-29 08:36 | PCM.HP.BLA ---
History and Physical Date of Admission: 08/29/22 lisinopril Adverse Reaction (Verified 08/16/22 12:48) cough Medications montelukast 10 mg tablet 10 mg PO QHS allergies 08/24/17 [History Confirmed 08/16/22] cholecalciferol (vitamin D3) 25 mcg (1,000 unit) tablet 1,000 unit PO DAILY 03/26/19 [History Confirmed 08/16/22] lansoprazole 30 mg capsule,delayed release 30 mg PO DAILY GERD 03/26/19 [History Confirmed 08/16/22] atorvastatin 40 mg tablet 40 mg PO .QOD 05/18/20 [History Confirmed 08/16/22] aspirin 81 mg tablet 81 mg PO QHS heart health 12/08/20 [History Confirmed 08/16/22] methscopolamine 5 mg tablet 5 mg PO DAILY stomach acid 05/24/21 [History Confirmed 08/16/22] Handicap Placard #1 ea 10/04/21 [Rx Confirmed 08/16/22] albuterol sulfate 90 mcg/actuation aerosol inhaler (ProAir HFA) 1 puff inhalation Q4H PRN Shortness Of Breath 10/04/21 [History Confirmed 08/16/22] topiramate 25 mg tablet 25 mg PO DAILY 10/04/21 [History Confirmed 08/16/22] magnesium oxide 400 mg (241.3 mg magnesium) tablet 400 mg PO DAILY #90 tabs 12/18/21 [Rx Confirmed 08/16/22] allopurinol 100 mg tablet 200 mg PO DAILY 06/03/22 [History Confirmed 08/16/22] amiodarone 200 mg tablet 200 mg PO DAILY 06/03/22 [History Confirmed 08/16/22] fluticasone 250 mcg-salmeterol 50 mcg/dose blistr powdr for inhalation (Wixela Inhub) 1 inh inhalation BID 06/03/22 [History Confirmed 08/16/22] insulin glargine 100 unit/mL (3 mL) subcutaneous pen (Lantus Solostar U-100 Insulin) 24 unit subcut QPM 06/03/22 [History Confirmed 08/16/22] linagliptin 5 mg tablet (Tradjenta) 5 mg PO DAILY 06/03/22 [History Confirmed 08/16/22] vitamin B12 500 mcg-folic acid 400 mcg tablet 1 tab PO DAILY 06/03/22 [History Confirmed 08/16/22] furosemide 40 mg tablet 80 mg (2 x 40 mg) PO DAILY #90 tabs 07/11/22 [Rx Confirmed 08/16/22] carvedilol 6.25 mg tablet 6.25 mg PO BID this is a decreased dose. #180 tabs 08/02/22 [Rx Confirmed 08/16/22] hydrocodone-acetaminophen 5-325mg 5mg-325mg 1 tab PO Q8H PRN pain 2 days #5 tabs 08/07/22 [Rx Confirmed 08/16/22] oxycodone-acetaminophen 5 mg-325 mg tablet (Percocet) 1 tab PO Q8H PRN pain 2 days #5 tabs 08/07/22 [Rx Confirmed 08/16/22] PFSH Medical History Acute on chronic anemia Acute on chronic kidney failure Ambulates with cane Anemia Arthritis Asthma Atherosclerotic heart disease of [place] coronary artery without angina pectoris Atrial enlargement, left Benign paroxysmal positional vertigo Benign positional vertigo Bradycardia Bruit (arterial) Cancer Cardiology follow-up encounter Chronic combined systolic and diastolic CHF (congestive heart failure) Colon polyps Contusion of left shoulder COVID-19 virus detected (02/26/20) CPAP (continuous positive airway pressure) dependence Depression Diabetes mellitus type 2 in obese Dietary restriction Essential (primary) hypertension Essential tremor GERD (gastroesophageal reflux disease) Gout Grade III diastolic dysfunction Head contusion History of echocardiogram History of edema History of Holter monitoring History of IBS History of non-ST elevation myocardial infarction (NSTEMI) (04/2017) History of pain when walking History of renal disease History of stress test HLD (hyperlipidemia) Injury of femoral artery Insulin dependent diabetes mellitus Iron deficiency anemia refractory to iron therapy Lower GI bleed (03/2019) Meningioma New onset atrial flutter (09/29/17) Non-ischemic cardiomyopathy Non-smoker Non-ST elevation myocardial infarction (NSTEMI) due to mismatch of myocardial oxygen supply and demand (11/2016) Obesity Other cerebral infarction Pain, lower extremity Paroxysmal atrial fibrillation Paroxysmal atrial flutter Partial symptomatic epilepsy with complex partial seizures, intractable, with status epilepticus [id number] condition Pseudoaneurysm following procedure Renal insufficiency Secondary pulmonary arterial hypertension Seizures SOB (shortness of breath) TIA (transient ischemic attack) Wears glasses Surgical History H/O basal cell carcinoma excision H/O cardiac radiofrequency ablation H/O coronary artery bypass surgery (08/06/04) H/O craniotomy (2008) History of ankle surgery History of cardioversion (09/29/17) History of colonoscopy History of hysterectomy History of left heart catheterization (LHC) (11/25/16) History of radiofrequency ablation procedure for cardiac arrhythmia (12/04/17) History of tonsillectomy Hx of hysterectomy Family History Father CAD (coronary artery disease) Hypertension Cancer skinMother CAD (coronary artery disease) Hypertension DiabetesBrother CAD (coronary artery disease)Sister CAD (coronary artery disease) Myocardial infarction Social History Smoking Status: Never smoker alcohol intake: never substance use type: does not use diet: diabetic caffeine: Yes Type: carbonated beverages and tea what type of physical activity do you participate in: none seatbelt use: always do you feel safe at home: Yes HPI HPI HPI: 81-year-old female. On August 07, 2022 I performed a stage I right upper extremity basilic vein to brachial artery arteriovenous fistula creation for hemodialysis. She presents today for surgical follow-up. Particular complaints. She denies any hand pain or coolness. She herself is able to feel the thrill. Exam Const General: cooperative, comfortable and no acute distress HENMT Head: normal to inspection Eyes General: appearance normal, both eyes and all related structures Neck Neck: normal visual inspection Chest Chest palpation & inspection: normal inspection of the chest Resp Effort & Inspection: normal respiratory effort Auscultation: clear to auscultation bilaterally Cardio Rate: regular rate Rhythm: regular rhythm GI Palpation: soft and no hepatosplenomegaly Skin General: no rashes or lesions noted Neuro General: patient alert and patient awake Extrem Other: Very clean incision right upper arm with a strong pulse thrill and bruit. Right radial pulse 1+. Ultrasound inspection demonstrates that the basilic vein is maturing nicely. Psych Appearance: grossly normal Assessment and Plan Assessment and Plan (1) Acute on chronic kidney failure: Status: Chronic Qualifiers: Acute renal failure type: unspecified Chronic kidney disease stage: stage 4 (severe) Qualified Code(s): N17.9 - Acute kidney failure, unspecified; N18.4 - Chronic kidney disease, stage 4 (severe) Plan: Excellent progress stage I right upper extremity brachiobasilic arteriovenous hemodialysis fistula. We will schedule for stage II transposition. The patient and are aware of the technique benefits risk complication alternatives. They we will hold her aspirin 3 days preprocedure. She has had an opportunity to ask and have questions answered. We will schedule and proceed at her discretion. Copy: Dr. Nia Ceron M.D., F.A.C.S The patient presents for stage II transposition right upper extremity brachial basilic arteriovenous hemodialysis fistula creation. No changes in her presentation. Je Ceron M.D., F.A.C.S.
--- NOTE | 2022-08-29 08:37 | DCINST_ITS ---
Discharge Instructions Procedure Fistula Diet Discharge Diet: Renal Diet Activity Discharge Activity: May Not Drive (for 2-3 days or while taking narcotic pain medications.), May Shower and May Take a Tub Bath (in 5 days.) Lifting Restrictions: 5 pounds Keep extremity elevated above heart level: - (Keep arm elevated above the heart level for 3 days.) Additional Activity Instructions:: Keep the Jarred wrap on for 2 days. You may then remove the Jarred wrap and gauze dressing. Leave the Steri-Strips in place. Do not get the area wet until Friday the . Elevate your right arm for comfort Dressing / Incision Call your doctor if your incision/area has: Continuous Slow Oozing, Sudden Increased Bleeding (apply pressure and call your doctor.), Increased Pain/ Swelling, Increased Redness and Foul Smelling Discharge Call your doctor if you observe: Fever of 101 or Higher Suture Line Care: Avoid Pulling/Pushing and Avoid Pinching/Bending Cleanse incision/area with: Keep Dressing Clean & Dry Additional Dressing/Incision Instructions:: Change or remove dressing in one day. May protect with a gauze bandaid. Follow Up Care Please Follow Up With: Je Ceron MD When: Call [phone] to make an appointment for suture removal and follow up in 1 week. Test Results: Test results from this visit will be discussed in further detail at your follow- up appointment, if applicable. Discharge Plan Admission Attending Provider: Je Ceron Primary Care Provider: Nia Uriostegui Discharge Orders/Prescriptions Prescriptions: No Action atorvastatin 40 mg tablet 40 mg PO .QOD Patient Comments: TAKE 1 TABLET BY MOUTH EVERY OTHER DAY methscopolamine 5 mg tablet 5 mg PO DAILY topiramate 25 mg tablet 25 mg PO DAILY Patient Comments: TAKE 1 TABLET BY MOUTH EVERY DAY FOR 30 DAYS (DME) Handicap Placard See Rx Instructions .Route .MEDSUPPLY Qty: 1 0RF Rx Instructions: As directed; Good from 10/04/2021-10/04/2026 montelukast 10 MG tablet 10 mg PO QHS lansoprazole 30 MG capsule,delayed release(DR/EC) 30 mg PO DAILY cholecalciferol (vitamin D3) 1,000 UNIT tablet 1,000 unit PO DAILY aspirin 81 mg Tablet 81 mg PO QHS albuterol sulfate [ProAir HFA] 90 mcg/actuation HFA aerosol inhaler 1 puff INHALATION Q4H PRN (Reason: Shortness Of Breath) allopurinol 100 mg tablet 200 mg PO DAILY Patient Comments: TAKE 2 TABLETS BY MOUTH EVERY DAY Tradjenta 5 mg Tablet 5 mg PO DAILY fluticasone propion-salmeterol [Wixela Inhub] 250-50 mcg/dose Blister With Device 1 inh INHALATION BID insulin glargine [Lantus Solostar U-100 Insulin] 100 unit/mL (3 mL) Insulin Pen 24 unit SUBCUT QPM vitamin [id number] acid 500-400 mcg Tablet 1 tab PO DAILY Rx Instructions: administer with a meal amiodarone 200 mg tablet 200 mg PO DAILY Rx Instructions: TAKE 1 TABLET BY MOUTH EVERY DAY magnesium oxide 400 mg (241.3 mg magnesium) tablet 400 mg PO DAILY Qty: 90 3RF furosemide 40 mg tablet 80 mg PO DAILY Qty: 90 3RF carvedilol 6.25 mg tablet 6.25 mg PO BID Qty: 180 3RF Rx Instructions: must administer with a meal/food Referrals / Follow Up: Nia Uriostegui DO [Primary Care Provider] - Disposition Disposition (needs filled in before D/C Order can be placed): Home, Self Care
[2022-08-29 10:08] LABS: Bedside Glucose 119 mg/dL (74-106)
[2022-08-29] MEDS: Cefazolin 2 GM in 0.9% Normal Saline 100 ML IV (10:45)
[2022-08-29] MEDS: Heparin Injection (Vial) 5,000 UNIT/ML VIAL 5000 UNIT (11:20)
[2022-08-29] MEDS: Lidocaine 1% (30 ml sdv) 30 ML Vial (13:01)
[2022-08-29] MEDS: Bupivacaine Mpf 0.5% 30 ML VIAL (13:01)
--- NOTE | 2022-08-29 13:01 | OP.PCM_ITS ---
Report of Operation Date of Procedure: 08/29/22 Pre-Operative Diagnosis: Chronic renal failure in need of hemodialysis access Post-Operative Diagnosis: Same Surgery/Procedure Performed:: Stage II right upper extremity basilic vein transposition to brachial artery arteriovenous hemodialysis fistula creation Description of Surgical Findings:: Timeout informed consent was obtained. 81-year-old female was taken to the operating placed on the table underwent general anesthesia. The right upper extremity was sterilely prepped and draped. Clean procedure. Ancef 2 g were given intravenously. Throughout the procedure 36 cc of 1% lidocaine mixed 50-50 with 0.5% Marcaine was used as local anesthetic. At the antecubital space at the site of stage I and made a longitudinal incision sharp dissection was carried down through the subcutaneous tissues it is not but there was significant amount of reaction and all of the dissection today was rather tedious and slow due to the amount of fibrous adherent changes of the tissues the basilic vein was identified and tediously and carefully dissected free. Where needed side branches were secured with 4-0 Vicryl ligatures and 3-0 Vicryl ligatures and hemoclips. The vein was dissected all the way up to the axillary area. Small sensory nerve that had been stretch was repaired with a simple suture of 7-0 Prolene. That was an incomplete problem. Then sharp and blunt dissection used to identify the brachial artery after measuring the length of the vein. The vein was marked on its anterior surface. Patient received 7000 of heparin. Prior to that a tunnel was placed from the distal third of the arm up to the more proximal upper arm the vein was tunneled and had a very nice positional lie. Peripheral vascular clamps were placed on the brachial artery and 11 blade was used to make an arteriotomy that was extended with Sullivan scissors. A end-to-side venous to arterial anastomosis was created with a running 7-0 Prolene. Prior to completion of this good antegrade retrograde flow . Clamps were released hemostasis was intact the hand was inspected it appeared to be very pink and viable and had brisk capillary refill. Doppler signals demonstrated the presence of flow both at the radial and ulnar level. The fistula itself had a immediate strong thrill and bruit. Patient received 20 mg of protamine. I put Floseal at the depth of the wound. The wound was then closed in layers with interrupted 3-0 Vicryl. Subdermal tissues approximate the same. Skin edges proximal and running subicular 4-0 Monocryl. Steri-Strips Telfa tape soft roll Jarred wrap applied. Sponge and instrument and needle counts were reported to the surgeon to be correct. Specimens none. Drains none. Blood loss 100 cc. She was taken to the recovery room in satisfactory addition without apparent c omplication. Je Ceron M.D., F.A.C.S. Surgeon: Je Ceron Type of Anesthesia: General Anesthesiologist: Blossom Montgomery
--- NOTE | 2022-08-29 14:55 | SUR.PHASEII ---
PT IS MEETING ALL D/C CRITERIA AND WOULD LIKE TO GO HOME. PER DR. RICHIE Granado PT CAN BE DISCHARGED TO HOME.
== END 2022-08-29 15:14 | disposition home or self-care (01) ==
LOC: SDC 08:22 → AC 08:27
PROVIDERS: PCP Internal Medicine; Referring Provider Internal Medicine; Visit Provider Surgery
PROC: (CPT 36819; principal; 2022-08-29 10:25)
DX: I13.0 Hypertensive heart and chronic kidney disease with heart failure and stage 1 through stage 4 chronic kidney disease, or unspecified chronic kidney disease (principal); N17.9 Acute kidney failure, unspecified; I50.42 Chronic combined systolic (congestive) and diastolic (congestive) heart failure; I42.8 Other cardiomyopathies; I27.21 Secondary pulmonary arterial hypertension; E11.22 Type 2 diabetes mellitus with diabetic chronic kidney disease; N18.4 Chronic kidney disease, stage 4 (severe); I48.92 Unspecified atrial flutter; Z79.4 Long term (current) use of insulin; I25.10 Atherosclerotic heart disease of native coronary artery without angina pectoris; Z86.16 Personal history of COVID-19; E78.5 Hyperlipidemia, unspecified; Z95.1 Presence of aortocoronary bypass graft; Z85.828 Personal history of other malignant neoplasm of skin
CPT/HCPCS: 36819; 01844; 36415; 80048; 82962; 85025; A4648; J7040; J2405

== ENCOUNTER → 2022-10-07 | Outpatient (CLI) | payer MEDICARE, OTHER, SELFPAY ==
[2022-10-07 16:47] LABS: Hematocrit 32.3 % (37-47); Hemoglobin 9.6 g/dL (12.0-15.0); Mean Corp Hgb Conc 29.7 g/dL (32-36); Mean Corpuscular Hgb 28.1 pg (27.0-32.0); Mean Corpuscular Volume 94.4 fL (81-99); Mean Platelet Vol. 10.5 fl (6.2-12.0); Platelet Count 225 K/mm3 (150-450); RBC Distribution Width CV 15.1 % (11.6-14.6); RBC Distribution Width SD 52.3 fl (35.1-43.9); Red Blood Count 3.42 M/mm3 (4.2-5.4); White Blood Count 8.3 K/mm3 (4.4-11.0)
[2022-10-07 17:09] LABS: Albumin, Serum 3.3 g/dL (3.2-5.0); BUN 42 mg/dL (7-18); BUN/Creat Ratio 13.5 RATIO (10-20); Calcium,Total 8.8 mg/dL (8.5-10.1); Chloride 110 mmol/L (98-107); Creatinine, Serum 3.11 mg/dL (0.55-1.02); EST Glomerular Filtration Rate 15 mL/min (>60); Est Glom Filt Rate - Afr Amer 18 mL/min (>60); Glucose 163 mg/dL (74-106); Phosphorus 3.9 mg/dL (2.5-4.9); Potassium 3.9 mmol/L (3.5-5.1); Protein, Urine (Random) 13.8 mg/dL (<11.9); Protein:Creat Ratio 223 mg/g CRE (0-200); Sodium Level 141 mmol/L (136-145)
[2022-10-07 17:14] LABS: Vitamin D,25 Hydroxy 27.9 ng/mL
[2022-10-08 08:16] LABS: PTHIN 199.1 pg/mL (18.4-80.1)
== END | disposition home or self-care (01) ==
LOC: LAB 16:26
PROVIDERS: PCP Internal Medicine; Referring Provider Internal Medicine Nephrology; Visit Provider Internal Medicine Nephrology
DX: N18.4 Chronic kidney disease, stage 4 (severe) (principal)
CPT/HCPCS: 36415; 80069; 82306; 82570; 83970; 84156; 85027

== ENCOUNTER → 2022-12-12 | Outpatient (CLI) | payer MEDICARE, OTHER, SELFPAY ==
[2022-12-12 11:37] LABS: Hematocrit 35.5 % (37-47); Hemoglobin 10.6 g/dL (12.0-15.0); Mean Corp Hgb Conc 29.9 g/dL (32-36); Mean Corpuscular Hgb 27.7 pg (27.0-32.0); Mean Corpuscular Volume 92.9 fL (81-99); Mean Platelet Vol. 11.1 fl (6.2-12.0); Platelet Count 205 K/mm3 (150-450); RBC Distribution Width CV 15.7 % (11.6-14.6); RBC Distribution Width SD 53.4 fl (35.1-43.9); Red Blood Count 3.82 M/mm3 (4.2-5.4); White Blood Count 8.5 K/mm3 (4.4-11.0)
[2022-12-12 12:03] LABS: Albumin, Serum 3.5 g/dL (3.2-5.0); BUN 54 mg/dL (7-18); BUN/Creat Ratio 16.1 RATIO (10-20); Chloride 103 mmol/L (98-107); Creatinine, Serum 3.35 mg/dL (0.55-1.02); EST Glomerular Filtration Rate 14 mL/min (>60); Est Glom Filt Rate - Afr Amer 17 mL/min (>60); Glucose 97 mg/dL (74-106); Phosphorus 3.8 mg/dL (2.5-4.9); Potassium 3.8 mmol/L (3.5-5.1); Sodium Level 140 mmol/L (136-145)
== END | disposition home or self-care (01) ==
PROVIDERS: PCP Internal Medicine; Referring Provider Internal Medicine Nephrology; Visit Provider Internal Medicine Nephrology
DX: N18.4 Chronic kidney disease, stage 4 (severe) (principal)
CPT/HCPCS: 36415; 80069; 85027

== ENCOUNTER → 2023-01-03 | Outpatient (CLI) | payer MEDICARE, OTHER, SELFPAY ==
[2023-01-03 10:12] LABS: Bacteria 0 SEEN /hpf (None Seen); Mucous, Urine 0 SEEN /hpf (<or=2+); Red Blood Cells-Urine 0 SEEN /hpf (0-5); Squamous Epithelial Cells - UA 0 SEEN /hpf (5-10)
[2023-01-03 10:26] LABS: Color, Urine Yellow (Yellow); Glucose, Dipstick Normal (Normal); Ketone-Dipstick Negative (Negative); Leukocyte Esterase-Dipstick 25 /ul (Negative); Nitrite-Dipstick Negative (Negative); Occult Blood-Urine Negative /ul (Negative); Protein-Dipstick 15 mg/dl (Negative); Specific Gravity, Urine 1.015 (1.002-1.030); Urine Bilirubin Dipstick Negative (Negative); Urine Clarity Clear (Clear); Urine Urobilinogen Normal (Normal)
[2023-01-03 10:27] LABS: Absolute Lymphocyte Count 1.87 X10^3/uL (0.83-4.51); Absolute Neutrophil Count 7.5 X10^3/uL (2.0-7.7); Basophil# 0.03 X10^3/uL; Basophil% 0.3 % (0-1); Eosinophil# 0.07 X10^3/uL; Eosinophils% 0.7 % (0-5); Hematocrit 37.6 % (37-47); Hemoglobin 11.3 g/dL (12.0-15.0); Lymphocyte # 1.87 X10^3/ul (0.83-4.51); Lymphocyte % 17.8 % (19-41); Mean Corp Hgb Conc 30.1 g/dL (32-36); Mean Corpuscular Hgb 27.8 pg (27.0-32.0); Mean Corpuscular Volume 92.6 fL (81-99); Mean Platelet Vol. 10.9 fl (6.2-12.0); Monocyte% 9.5 % (0-10); NRBC Flagged by Analyzer 0 % (0-5); Neutrophil # 7.45 X10^3/uL (2.7-7.7); Neutrophil % 70.9 % (47-70); Platelet Count 194 K/mm3 (150-450); RBC Distribution Width CV 15.2 % (11.6-14.6); RBC Distribution Width SD 52.1 fl (35.1-43.9); Red Blood Count 4.06 M/mm3 (4.2-5.4); White Blood Count 10.5 K/mm3 (4.4-11.0)
[2023-01-03 10:37] LABS: White Blood Cells 0-5 SEEN /hpf (0-5)
[2023-01-03 10:47] LABS: Microalbumin,Random Urine 42.8 mg/L (NO RANGE EST.); Microalbumin:Creatinine Ratio 38.9 mg/g CRE (<30 mg/g CRE)
[2023-01-03 11:04] LABS: ALB/GLOB Ratio 1.2 RATIO (0.9-2.4); AST(SGOT) 11 U/L (15-37); Alanine Aminotransfer ALT/SGPT 10 U/L (13-56); Albumin, Serum 3.5 g/dL (3.2-5.0); Alkaline Phosphatase 107 U/L (45-117); Anion Gap 5 (5-15); BUN 60 mg/dL (7-18); BUN/Creat Ratio 18.3 RATIO (10-20); Chloride 104 mmol/L (98-107); Cholesterol 154 mg/dL (200); Creatinine, Serum 3.28 mg/dL (0.55-1.02); EST Glomerular Filtration Rate 14 mL/min (>60); Est Glom Filt Rate - Afr Amer 17 mL/min (>60); Glucose 121 mg/dL (74-106); High Density Lipoprotein 46 mg/dL; Potassium 3.7 mmol/L (3.5-5.1); Protein, Total 6.5 g/dL (6.4-8.2); Sodium Level 139 mmol/L (136-145); Thyroid Stim Hormone (TSH) 0.58 uIU/mL (0.358-3.74); Triglycerides 181 mg/dL; Very Low Density Lipoprotein 36 mg/dL (5-40)
== END | disposition home or self-care (01) ==
LOC: LAB 10:07
PROVIDERS: PCP Internal Medicine; Referring Provider Internal Medicine; Visit Provider Internal Medicine
DX: E11.9 Type 2 diabetes mellitus without complications (principal)
CPT/HCPCS: 36415; 80053; 80061; 81001; 82043; 82570; 84443; 85025

== ENCOUNTER → 2023-02-24 | Outpatient (CLI) | payer MEDICARE, OTHER, SELFPAY ==
--- NOTE | 2023-02-24 10:37 | CDU_ITS ---
Reason For Study: Bilateral carotid artery stenosis Rt. Velocities/BP Lt. Velocities/BP Prox CCA 72.9/6.9 cm/sec. Prox CCA 86.1/12.4 cm/sec. Mid CCA 91.6/8 cm/sec. Mid CCA 66.3/12.4 cm/sec. Dist CCA 57/8.8 cm/sec. Dist CCA 77.3/9.1 cm/sec. Prox ICA 49.4/12.6 cm/sec. Prox ICA 80.6/15.7 cm/sec. Mid ICA 60.7/12.6 cm/sec. Mid ICA 54.2/13.5 cm/sec. Dist ICA 81.5/21.1 cm/sec. Dist ICA 117.4/27.9 cm/sec. Rt. ICA/CCA = 1.12. Lt. ICA/CCA = 1.52. Prox ECA 40 cm/sec. Prox ECA 57.4/3.8 cm/sec. Rt. Vert. 41.9/8.8 cm/sec. Lt. Vert. 59.7/13.5 cm/sec. Right Extracranial There is intimal thickening but no significant atherosclerotic plaque noted in the right common carotid artery. The right common carotid artery is tortuous. There is homogeneous, smooth atherosclerotic plaque noted in the right internal carotid artery. The right internal carotid artery is very tortuous. There is intimal thickening but no significant atherosclerotic plaque noted in the right external carotid artery. Antegrade flow is noted in the right vertebral artery. Left Extracranial There is heterogeneous, irregular atherosclerotic plaque noted in the left common carotid artery. There is heterogeneous, irregular atherosclerotic plaque noted in the left internal carotid artery. The left internal carotid artery is very tortuous. There is intimal thickening but no significant atherosclerotic plaque noted in the left external carotid artery. Antegrade flow is noted in the left vertebral artery. Procedure Carotid Duplex 00644. This is a Carotid Duplex examination using B-mode, color flow and specral Doppler. Exam performed in department. VL/Carotid Duplex Ultrasound Interpretation Summary Tortuous right common and internal carotid arteries with less than 50% stenosis of the internal carotid Less than 50% stenosis right external carotid Tortuous left internal carotid artery with irregular calcific plaque at the pro ximal portion but less than 50% stenosis Less than 50% stenosis left external carotid artery Patent and antegrade vertebral arteries bilaterally Ordering Physician: Nia Uriostegui Referring Physician: Nia Uriostegui Performed By: Lisa Gutierrez RVT
== END | disposition home or self-care (01) ==
LOC: CVS 10:37
PROVIDERS: PCP Internal Medicine; Referring Provider Internal Medicine; Visit Provider Internal Medicine
DX: I65.23 Occlusion and stenosis of bilateral carotid arteries (principal)
CPT/HCPCS: 93880

== ENCOUNTER → 2023-03-10 | Outpatient (CLI) | payer MEDICARE, OTHER, SELFPAY ==
[2023-03-10 13:40] LABS: Hematocrit 34.9 % (37-47); Hemoglobin 10.6 g/dL (12.0-15.0); Mean Corp Hgb Conc 30.4 g/dL (32-36); Mean Corpuscular Hgb 27.6 pg (27.0-32.0); Mean Corpuscular Volume 90.9 fL (81-99); Mean Platelet Vol. 11.3 fl (6.2-12.0); Platelet Count 207 K/mm3 (150-450); RBC Distribution Width CV 15.2 % (11.6-14.6); RBC Distribution Width SD 49.9 fl (35.1-43.9); Red Blood Count 3.84 M/mm3 (4.2-5.4); White Blood Count 7.5 K/mm3 (4.4-11.0)
[2023-03-10 14:00] LABS: Albumin, Serum 3.4 g/dL (3.2-5.0); BUN 60 mg/dL (7-18); BUN/Creat Ratio 18.1 RATIO (10-20); Calcium,Total 9.2 mg/dL (8.5-10.1); Chloride 106 mmol/L (98-107); Creatinine, Serum 3.31 mg/dL (0.55-1.02); EST Glomerular Filtration Rate 14 mL/min (>60); Est Glom Filt Rate - Afr Amer 17 mL/min (>60); Glucose 102 mg/dL (74-106); Potassium 3.6 mmol/L (3.5-5.1); Sodium Level 140 mmol/L (136-145)
== END | disposition home or self-care (01) ==
LOC: LAB 12:48
PROVIDERS: PCP Internal Medicine; Referring Provider Internal Medicine Nephrology; Visit Provider Internal Medicine Nephrology
DX: N18.4 Chronic kidney disease, stage 4 (severe) (principal)
CPT/HCPCS: 36415; 80069; 85027

== ENCOUNTER → 2023-03-11 | Outpatient (CLI) | payer MEDICARE, OTHER, SELFPAY | END | disposition home or self-care (01) | LOC: MTLAB 13:09 | PROVIDERS: PCP Internal Medicine; Referring Provider Internal Medicine Pulmonary Disease; Visit Provider Internal Medicine Pulmonary Disease | DX: J45.909 Unspecified asthma, uncomplicated (principal); R05.9 Cough, unspecified | CPT/HCPCS: 87070; 87077; 87186; 87205 ==

== ENCOUNTER → 2023-06-11 | Outpatient (CLI) | payer MEDICARE, OTHER, SELFPAY ==
[2023-06-11 13:20] LABS: Hematocrit 36.2 % (37-47); Hemoglobin 11.2 g/dL (12.0-15.0); Mean Corp Hgb Conc 30.9 g/dL (32-36); Mean Corpuscular Hgb 28.1 pg (27.0-32.0); Mean Platelet Vol. 11.1 fl (6.2-12.0); Platelet Count 201 K/mm3 (150-450); RBC Distribution Width CV 14.8 % (11.6-14.6); RBC Distribution Width SD 49.4 fl (35.1-43.9); Red Blood Count 3.98 M/mm3 (4.2-5.4); White Blood Count 7.9 K/mm3 (4.4-11.0)
[2023-06-11 13:36] LABS: Microalbumin,Random Urine 45.9 mg/L (NO RANGE EST.); Microalbumin:Creatinine Ratio 35.9 mg/g CRE (<30 mg/g CRE); Protein, Urine (Random) 20.7 mg/dL (<11.9); Protein:Creat Ratio 162 mg/g CRE (0-200)
[2023-06-11 13:45] LABS: Albumin, Serum 3.6 g/dL (3.2-5.0); BUN 54 mg/dL (7-18); BUN/Creat Ratio 15.5 RATIO (10-20); Calcium,Total 9.4 mg/dL (8.5-10.1); Chloride 103 mmol/L (98-107); Creatinine, Serum 3.48 mg/dL (0.55-1.02); EST Glomerular Filtration Rate 13 mL/min (>60); Est Glom Filt Rate - Afr Amer 16 mL/min (>60); Glucose 123 mg/dL (74-106); Phosphorus 3.3 mg/dL (2.5-4.9); Potassium 3.7 mmol/L (3.5-5.1); Sodium Level 138 mmol/L (136-145)
[2023-06-11 13:47] LABS: Vitamin D,25 Hydroxy 27.7 ng/mL
[2023-06-11 13:58] LABS: PTHIN 333.4 pg/mL (18.4-80.1)
== END | disposition home or self-care (01) ==
LOC: LAB 12:35
PROVIDERS: PCP Internal Medicine; Referring Provider Internal Medicine Nephrology; Visit Provider Internal Medicine Nephrology
DX: N18.4 Chronic kidney disease, stage 4 (severe) (principal); R80.9 Proteinuria, unspecified
CPT/HCPCS: 36415; 80069; 82043; 82306; 82570; 83970; 84156; 85027

== ENCOUNTER → 2023-09-02 | Outpatient (CLI) | payer MEDICARE, OTHER, SELFPAY ==
--- NOTE | 2023-09-02 12:03 | AVDS_ITS ---
Reason For Study: Arterial steal syndrome RIGHT Inflow, 256.7/98.8 cm/sec. Inflow, 1352 ml/min. Prox anastamosis, 329.9/168.1 cm/sec. Prox anastamosis, 1411 ml/min. Prox graft, 262.9/119 cm/sec. Prox graft, 2728 ml/min. Prox graft, 202.5/66.7 cm/sec. Prox graft, 3370 ml/min. Mid graft, 92.5/34.1 cm/sec. Mid graft, 1482 ml/min. Distal graft, 72.4/32.2 cm/sec. Distal graft, 1458 ml/min. Distal graft, 696.9/364.8 cm/sec. Distal graft, 1367 ml/min. Outflow, 141.2/40.9 cm/sec. Outflow, 2875 ml/min. Radial artery, 59.4 cm/sec. Ulnar artery, 54.2 cm/sec. VL/AV Fistula/Dialysis Graft Scan Interpretation Summary High flow right upper arm transposed basilic vein to brachial artery hemodialys is fistula. Proximal fistula 0.98 x 1.05 cm diameter Mid fistula 0.99 x 1.02 cm diameter Distal fistula 0.97 x 1 cm diameter Outflow 1.34 x 1.23 cm diameter Right radial and ulner arterial flow antegrade noted. Ordering Physician: Je Ceron Referring Physician: Nia Uriostegui M.D. Performed By: Lisa Gutierrez RVT
[2023-09-02 12:25] LABS: Hemoglobin 10.3 g/dL (12.0-15.0); Mean Corp Hgb Conc 31.2 g/dL (32-36); Mean Corpuscular Hgb 28.4 pg (27.0-32.0); Mean Corpuscular Volume 90.9 fL (81-99); Mean Platelet Vol. 10.6 fl (6.2-12.0); Platelet Count 202 K/mm3 (150-450); RBC Distribution Width CV 14.8 % (11.6-14.6); RBC Distribution Width SD 49.3 fl (35.1-43.9); Red Blood Count 3.63 M/mm3 (4.2-5.4); White Blood Count 7.7 K/mm3 (4.4-11.0)
[2023-09-02 12:51] LABS: PTHIN 238.6 pg/mL (18.4-80.1)
[2023-09-02 13:14] LABS: Albumin, Serum 3.4 g/dL (3.2-5.0); BUN 56 mg/dL (7-18); BUN/Creat Ratio 17.3 RATIO (10-20); Calcium,Total 9.6 mg/dL (8.5-10.1); Chloride 102 mmol/L (98-107); Creatinine, Serum 3.24 mg/dL (0.55-1.02); EST Glomerular Filtration Rate 15 mL/min (>60); Est Glom Filt Rate - Afr Amer 18 mL/min (>60); Glucose 109 mg/dL (74-106); Phosphorus 3.6 mg/dL (2.5-4.9); Potassium 3.7 mmol/L (3.5-5.1); Sodium Level 138 mmol/L (136-145)
[2023-09-02 13:20] LABS: Creatinine, Urine (random) < 13.00 mg/dL (NO RANGE EST.); Microalbumin,Random Urine 9.4 mg/L (NO RANGE EST.)
== END | disposition home or self-care (01) ==
LOC: CVS 12:02
PROVIDERS: PCP Internal Medicine; Referring Provider Surgery; Visit Provider Surgery
DX: N18.4 Chronic kidney disease, stage 4 (severe) (principal); R80.9 Proteinuria, unspecified
CPT/HCPCS: 36415; 80069; 82043; 82306; 82570; 83970; 85027; 93990

== ENCOUNTER → 2023-09-23 | Outpatient (CLI) | payer MEDICARE, OTHER, SELFPAY ==
--- NOTE | 2023-09-23 12:38 | ECHOD_ITS ---
Reason For Study: Eval pulmonary pressures Procedure This was a 2D Doppler, Color Flow transthoracic echocardiogram. Exam performed in department. Left Ventricle Normal LV size. Left ventricular systolic function is normal. The left ventricular ejection fraction is 60 %. No regional wall motion abnormalities noted. Right Ventricle Normal RV size. Normal systolic function. Atria The left atrium is moderately enlarged. Normal right atrium. Mitral Valve There is mild to moderate mitral annular calcification. Mild (1+) mitral valve insufficiency. Tricuspid Valve Normal tricuspid valve. Moderate (2+) tricuspid valve insufficiency. Pulmonary artery systolic pressure is 66 mmHg. Moderate pulmonary hypertension. Compared to the previous the pulmonary presuures are lower. Aortic Valve Trisinus/trileaflet aortic valve. Mild focal aortic valve calcification. Trivial aortic valve insufficiency. Pulmonic Valve Normal pulmonic valve. Trivial pulmonic valve insufficiency. Great Vessels Calcified aortic root. The pulmonary artery is normal size. Inferior vena cava collapse with respiration. Pericardium/Pleural No pericardial effusion. MMode/2D Measurements & Calculations LVIDd: 4.1 cm IVSd: 1.3 cm Ao root diam: 3.6 cm LVIDs: 3.3 cm LVPWd: 1.6 cm RVDd: 3.9 cm FS: 18.1 % LAV(MOD-bp): 75.9 ml LVAd ap4: 27.3 cm2 LVAd ap2: 27.0 cm2 LAV(MOD-bp) Indexed: 42.3 ml/m2 LVLd ap4: 7.8 cm LVLd ap2: 8.1 cm LAV(MOD-sp2): 64.1 ml EDV(MOD-sp4): 79.0 ml EDV(MOD-sp2): 72.5 ml LAV(MOD-sp4): 90.0 ml EDV(sp4-el): 80.9 ml EDV(sp2-el): 76.6 ml LVAs ap4: 15.9 cm2 LVAs ap2: 15.3 cm2 LVLs ap4: 7.0 cm LVLs ap2: 7.3 cm ESV(MOD-sp4): 31.7 ml ESV(MOD-sp2): 28.0 ml ESV(sp4-el): 30.6 ml ESV(sp2-el): 27.3 ml EF(MOD-sp4): 59.9 % EF(MOD-sp2): 61.3 % EF(sp4-el): 62.2 % SV(MOD-sp4): 47.3 ml SV(MOD-sp2): 44.5 ml SV(sp4-el): 50.3 ml LA dimension(2D): 3.8 cm LA A4 area: 26.9 cm2 RA A4 area: 16.9 cm2 TAPSE: 1.6 cm Time Measurements MV dec time: 0.17 sec Doppler Measurements & Calculations MV E max gu[place]: 140.3 cm/sec Lat Peak E' [place]: 6.8 cm/sec Med Peak E' [place]: 4.0 cm/sec MV A max gu[place]: 41.8 cm/sec E/E' lat: 20.7 E/E' med: 35.0 MV E/A: 3.4 MV dec slope: 849.4 cm/sec2 Ao V2 max: 156.6 cm/sec LV V1 max: 89.7 cm/sec Ao max P.8 mmHg LV V1 max P.2 mmHg Ao V2 mean: 103.0 cm/sec LV V1 mean P.9 mmHg Ao mean P.8 mmHg LV V1 mean: 64.9 cm/sec Ao V2 VTI: 35.7 cm LV V1 VTI: 22.8 cm AV (velocity ratio): 0.64 PA V2 max: 129.2 cm/sec TR max gu[place]: 383.6 cm/sec TR max P.9 mmHg ECHO/Echo Complete Interpretation Summary Normal LV size. Left ventricular systolic function is normal. The left ventricular ejection fraction is 60 %. Pulmonary artery systolic pressure is 66 mmHg. Moderate pulmonary hypertension. Compared to the previous the pulmonary presuures are lower Ordering Physician: Lui Lombardo Referring Physician: Nia Uriostegui M.D. Performed By: Brigitte Mccoy RDCS
== END | disposition home or self-care (01) ==
PROVIDERS: PCP Internal Medicine; Referring Provider Nurse Practitioner Family; Visit Provider Nurse Practitioner Family
DX: I50.42 Chronic combined systolic (congestive) and diastolic (congestive) heart failure (principal); I25.10 Atherosclerotic heart disease of native coronary artery without angina pectoris; I51.89 Other ill-defined heart diseases
CPT/HCPCS: 93306

== ENCOUNTER → 2023-11-13 | Outpatient (CLI) | payer MEDICARE, OTHER, SELFPAY ==
[2023-11-13 13:11] LABS: Hemoglobin 10.3 g/dL (12.0-15.0); Mean Corp Hgb Conc 31.2 g/dL (32-36); Mean Corpuscular Hgb 28.9 pg (27.0-32.0); Mean Corpuscular Volume 92.4 fL (81-99); Mean Platelet Vol. 10.4 fl (6.2-12.0); Platelet Count 183 K/mm3 (150-450); RBC Distribution Width CV 14.6 % (11.6-14.6); RBC Distribution Width SD 49.8 fl (35.1-43.9); Red Blood Count 3.57 M/mm3 (4.2-5.4); White Blood Count 7.3 K/mm3 (4.4-11.0)
[2023-11-13 13:41] LABS: Vitamin D,25 Hydroxy 32.8 ng/mL
[2023-11-13 13:46] LABS: Albumin, Serum 3.6 g/dL (3.2-5.0); BUN 49 mg/dL (7-18); BUN/Creat Ratio 15.4 RATIO (10-20); Calcium,Total 9.7 mg/dL (8.5-10.1); Chloride 105 mmol/L (98-107); Creatinine, Serum 3.19 mg/dL (0.55-1.02); EST Glomerular Filtration Rate 15 mL/min (>60); Est Glom Filt Rate - Afr Amer 18 mL/min (>60); Glucose 96 mg/dL (74-106); Microalbumin,Random Urine 11.7 mg/L (NO RANGE EST.); Phosphorus 3.7 mg/dL (2.5-4.9); Potassium 3.3 mmol/L (3.5-5.1); Sodium Level 140 mmol/L (136-145)
== END | disposition home or self-care (01) ==
LOC: LAB 12:27
PROVIDERS: PCP Internal Medicine; Referring Provider Internal Medicine Nephrology; Visit Provider Internal Medicine Nephrology
DX: N18.4 Chronic kidney disease, stage 4 (severe) (principal); R80.9 Proteinuria, unspecified
CPT/HCPCS: 36415; 80069; 82043; 82306; 82570; 83970; 85027

== ENCOUNTER → 2024-03-09 | Outpatient (CLI) | payer MEDICARE, OTHER, SELFPAY ==
[2024-03-09 13:39] LABS: Hematocrit 31.5 % (37-47); Mean Corp Hgb Conc 31.7 g/dL (32-36); Mean Corpuscular Hgb 28.7 pg (27.0-32.0); Mean Corpuscular Volume 90.3 fL (81-99); Mean Platelet Vol. 11.2 fl (6.2-12.0); Platelet Count 208 K/mm3 (150-450); RBC Distribution Width CV 14.6 % (11.6-14.6); RBC Distribution Width SD 48.5 fl (35.1-43.9); Red Blood Count 3.49 M/mm3 (4.2-5.4); White Blood Count 7.1 K/mm3 (4.4-11.0)
[2024-03-09 13:52] LABS: Protein, Urine (Random) < 6.0 mg/dL (<11.9); Protein:Creat Ratio 407 mg/g CRE (0-200)
[2024-03-09 14:08] LABS: Albumin, Serum 3.5 g/dL (3.2-5.0); BUN 50 mg/dL (7-18); Calcium,Total 9.5 mg/dL (8.5-10.1); Chloride 101 mmol/L (98-107); Creatinine, Serum 3.33 mg/dL (0.55-1.02); EST Glomerular Filtration Rate 14 mL/min (>60); Est Glom Filt Rate - Afr Amer 17 mL/min (>60); Glucose 86 mg/dL (74-106); Phosphorus 3.6 mg/dL (2.5-4.9); Potassium 3.8 mmol/L (3.5-5.1); Sodium Level 138 mmol/L (136-145)
[2024-03-09 14:25] LABS: PTHIN 308.4 pg/mL (18.4-80.1)
[2024-03-09 14:29] LABS: Vitamin D,25 Hydroxy 37.3 ng/mL
== END | disposition home or self-care (01) ==
PROVIDERS: PCP Internal Medicine; Referring Provider Internal Medicine Nephrology; Visit Provider Internal Medicine Nephrology
DX: N18.4 Chronic kidney disease, stage 4 (severe) (principal); R80.9 Proteinuria, unspecified
CPT/HCPCS: 36415; 80069; 82306; 82570; 83970; 84156; 85027

== ENCOUNTER → 2024-03-18 | Outpatient (CLI) | payer MEDICARE, OTHER, SELFPAY ==
--- NOTE | 2024-03-18 12:28 | VDLE_ITS ---
Reason For Study: BLE Swelling RIGHT LEFT GSV is normal. GSV is normal. CFV is compressible, spontaneous, phasic, CFV is compressible, spontaneous, phasic, competent and demonstrates normal competent, and demonstrates normal augmentation. augmentation. FV is compressible, spontaneous, phasic, FV is compressible, spontaneous, phasic, competent and demonstrates normal competent and demonstrates normal augmentation. augmentation. POP V is compressible, spontaneous, phasic, POP V is compressible, spontaneous, phasic, competent and demonstrates normal competent and demonstrates normal augmentation. augmentation. T/P Trunk is compressible. T/P Trunk is compressible. PTV is compressible. PTV is compressible. RT PerV is compressible. LT PerV is compressible. Procedure This is a venous duplex using B-mode, color flow and spectral Doppler. Exam performed in department. The exam was diagnostic. A preliminary report was called and/or faxed to Dr. Neely Office. VL/Venous Duplex US - Messi Extrem Interpretation Summary Deep veins of the lower extremities are bilaterally patent and compressible seg mentally. There is no evidence of deep vein thrombosis on either side. Valvular competence appears in tact within the proximal deep venous systems bilaterally. The great saphenous veins appear bila terally patent and compressible segmentally. Ordering Physician: Jeramy Neely Referring Physician: Jeramy Neely Performed By: Sukumar Arteaga, RVT
== END | disposition home or self-care (01) ==
LOC: CVS 12:27
PROVIDERS: PCP Internal Medicine; Referring Provider Internal Medicine Nephrology; Visit Provider Internal Medicine Nephrology
DX: R60.0 Localized edema (principal); M79.604 Pain in right leg
CPT/HCPCS: 93970

== ENCOUNTER → 2024-06-10 | Outpatient (CLI) | payer MEDICARE, OTHER, SELFPAY ==
[2024-06-10 11:22] LABS: Hemoglobin 9.9 g/dL (12.0-15.0); Mean Corpuscular Hgb 30.2 pg (27.0-32.0); Mean Corpuscular Volume 91.5 fL (81-99); Platelet Count 207 K/mm3 (150-450); RBC Distribution Width CV 14.8 % (11.6-14.6); RBC Distribution Width SD 47.8 fl (35.1-43.9); Red Blood Count 3.28 M/mm3 (4.2-5.4); White Blood Count 6.9 K/mm3 (4.4-11.0)
[2024-06-10 11:42] LABS: Protein, Urine (Random) < 6.0 mg/dL (0.0-12.0); Protein:Creat Ratio 156 mg/g CRE (0-200)
[2024-06-10 11:53] LABS: PTHIN 300 pg/mL (11-61)
[2024-06-10 13:52] LABS: Albumin, Serum 3.8 g/dL (3.4-4.8); Anion Gap 16 (5-15); BUN 54 mg/dL (4-19); BUN/Creat Ratio 15.2 RATIO (10-20); Calcium,Total 9.1 mg/dL (7.6-11.0); Carbon Dioxide 22.1 mmol/L (21.0-32.0); Chloride 102 mmol/L (98-108); Creatinine, Serum 3.54 mg/dL (0.70-1.20); EST Glomerular Filtration Rate 12 (>60); Glucose 72 mg/dL (70-99); Potassium 3.2 mmol/L (3.3-5.1); Sodium Level 140 mmol/L (133-145)
[2024-06-10 13:55] LABS: Vitamin D,25 Hydroxy 31.3 ng/mL (30-100)
== END | disposition home or self-care (01) ==
PROVIDERS: PCP Internal Medicine; Referring Provider Internal Medicine Nephrology; Visit Provider Internal Medicine Nephrology
DX: N18.4 Chronic kidney disease, stage 4 (severe) (principal); R80.9 Proteinuria, unspecified
CPT/HCPCS: 36415; 80069; 82306; 82570; 83970; 84156; 85027

== ENCOUNTER → 2024-06-28 | Outpatient (CLI) | payer MEDICARE, OTHER, SELFPAY ==
--- NOTE | 2024-06-28 12:58 | ECHOD_ITS ---
Reason For Study Reason For Study: PULMONARY HYPERTENSION Procedure This was a 2D Doppler, Color Flow transthoracic echocardiogram. Exam performed in department. Left Ventricle Normal LV size. Mild concentric left ventricular hypertrophy. The left ventricular ejection fraction is 60 %. Stage 3 diastolic dysfunction. No regional wall motion abnormalities noted. Right Ventricle Normal RV size. Normal systolic function. Atria The left atrium is mildly enlarged. Normal right atrium. Mitral Valve There is moderate mitral annular calcification. Mild (1+) eccentric mitral valve insufficiency. Tricuspid Valve Normal tricuspid valve. Moderate (2+) tricuspid valve insufficiency. Pulmonary artery systolic pressure is 56 mmHg. Aortic Valve Trisinus/trileaflet aortic valve. Mild focal aortic valve calcification. Peak aortic valve gradient 11 mmHg. Mean aortic valve gradient 6 mmHg. Pulmonic Valve Normal pulmonic valve. Great Vessels Normal aortic root. The pulmonary artery is normal size. Inferior vena cava collapse with respiration. Pericardium/Pleural No pericardial effusion. MMode/2D Measurements & Calculations LVIDd: 4.4 cm IVSd: 1.2 cm LVOT diam: 2.0 cm LVIDs: 3.1 cm LVPWd: 1.3 cm LVOT area: 3.2 cm2 RVDd: 4.6 cm FS: 30.9 % asc Aorta Diam: 3.6 cm LAV(MOD-bp): 76.2 ml LVAd ap4: 19.5 cm2 LAV(MOD-bp) Indexed: 42.9 ml/m2 LVLd ap4: 7.3 cm LAV(MOD-sp2): 83.1 ml EDV(MOD-sp4): 44.1 ml LAV(MOD-sp4): 68.9 ml EDV(sp4-el): 44.7 ml LVAs ap4: 11.8 cm2 LVLs ap4: 6.8 cm ESV(MOD-sp4): 18.1 ml ESV(sp4-el): 17.3 ml EF(MOD-sp4): 59.1 % EF(sp4-el): 61.3 % LVAd ap2: 22.5 cm2 SV(MOD-sp4): 26.1 ml SV(MOD-sp2): 34.7 ml LVLd ap2: 7.9 cm SI(MOD-sp4): 14.7 ml/m2 SI(MOD-sp2): 19.5 ml/m2 EDV(MOD-sp2): 52.3 ml EDV(sp2-el): 54.4 ml LVAs ap2: 12.1 cm2 LVLs ap2: 7.1 cm ESV(MOD-sp2): 17.6 ml ESV(sp2-el): 17.6 ml EF(MOD-sp2): 66.3 % SV(sp4-el): 27.4 ml Ao sinus diam: 3.[address] Junction: 2.9 cm LA dimension(2D): 4.6 cm LA A4 area: 23.0 cm2 RA A4 area: 18.7 cm2 TAPSE: 1.2 cm Time Measurements MV dec time: 0.15 sec Doppler Measurements & Calculations MV E max guan[place]: 137.5 cm/sec Lat Peak E' [place]: 6.9 cm/sec Med Peak E' [place]: 5.7 cm/sec MV A max guan[place]: 41.2 cm/sec E/E' lat: 19.8 E/E' med: 23.9 MV E/A: 3.3 MV V2 max: 128.0 cm/sec MV dec slope: 911.7 cm/sec2 Ao V2 max: 162.8 cm/sec MV max P.6 mmHg Ao max P.6 mmHg MV V2 mean: 57.1 cm/sec Ao V2 mean: 109.0 cm/sec MV mean P.7 mmHg Ao mean P.5 mmHg MV V2 VTI: 33.2 cm Ao V2 VTI: 37.6 cm MVA(VTI): 2.4 cm2 AV (velocity ratio): 0.65 SHARON(I,D): 2.1 cm2 SHARON(V,D): 1.9 cm2 LV V1 max: 96.7 cm/sec SV(LVOT): 78.2 ml PA V2 max: 109.7 cm/sec LV V1 max P.7 mmHg LV V1 mean P.0 mmHg LV V1 mean: 64.9 cm/sec LV V1 VTI: 24.5 cm PI end-d guan[place]ito: 149.4 cm/sec TR max guan[place]: 361.2 cm/sec TR max P.2 mmHg ECHO/Echo Complete Interpretation Summary Normal LV size. Mild concentric left ventricular hypertrophy. The left atrium is mildly enlarged. The left ventricular ejection fraction is 60 %. Stage 3 diastolic dysfunction. Pulmonary artery systolic pressure is 56 mmHg. Compared to the previous the pulmonary pressures are lower. Ordering Physician: Jonel Winchester Referring Physician: Nia Uriostegui M.D. Performed By: Chiara Wolfe RDCS
== END | disposition home or self-care (01) ==
PROVIDERS: PCP Internal Medicine; Referring Provider Internal Medicine Cardiovascular Disease; Visit Provider Internal Medicine Cardiovascular Disease
DX: I27.21 Secondary pulmonary arterial hypertension (principal); I25.10 Atherosclerotic heart disease of native coronary artery without angina pectoris
CPT/HCPCS: 93306

== ENCOUNTER → 2024-10-01 | Outpatient (CLI) | payer MEDICARE, OTHER, SELFPAY ==
[2024-10-01 13:50] LABS: Hematocrit 32.8 % (37-47); Hemoglobin 10.2 g/dL (12.0-15.0); Mean Corp Hgb Conc 31.1 g/dL (32-36); Mean Corpuscular Volume 90.9 fL (81-99); Mean Platelet Vol. 10.6 fl (6.2-12.0); Platelet Count 181 K/mm3 (150-450); RBC Distribution Width CV 14.9 % (11.6-14.6); RBC Distribution Width SD 49.8 fl (35.1-43.9); Red Blood Count 3.61 M/mm3 (4.2-5.4); White Blood Count 7.0 K/mm3 (4.4-11.0)
[2024-10-01 14:35] LABS: Creatinine, Urine (random) 26.90 mg/dL (28.00-217.00); Protein, Urine (Random) < 6.0 mg/dL (0.0-12.0); Protein:Creat Ratio 217 mg/g CRE (0-200)
[2024-10-01 15:43] LABS: PTHIN 330 pg/mL (11-61)
[2024-10-01 15:50] LABS: Albumin, Serum 4.1 g/dL (3.4-4.8); Anion Gap 13 (5-15); BUN 49 mg/dL (4-19); BUN/Creat Ratio 15.0 RATIO (10-20); Calcium,Total 9.7 mg/dL (7.6-11.0); Carbon Dioxide 25.4 mmol/L (21.0-32.0); Chloride 101 mmol/L (98-108); Glucose 97 mg/dL (70-99); Potassium 4.2 mmol/L (3.3-5.1); Vitamin D,25 Hydroxy 35.2 ng/mL (30-100)
== END | disposition home or self-care (01) ==
PROVIDERS: PCP Internal Medicine; Referring Provider Internal Medicine Nephrology; Visit Provider Internal Medicine Nephrology
DX: N18.4 Chronic kidney disease, stage 4 (severe) (principal)
CPT/HCPCS: 36415; 80069; 82306; 82570; 83970; 84156; 85027

== ENCOUNTER → 2024-11-02 | Outpatient (CLI) | payer MEDICARE, OTHER, SELFPAY ==
[2024-11-02 15:38] LABS: Anion Gap 15 (5-15); BUN 58 mg/dL (4-19); BUN/Creat Ratio 16.4 RATIO (10-20); Calcium,Total 9.7 mg/dL (7.6-11.0); Carbon Dioxide 24.2 mmol/L (21.0-32.0); Chloride 102 mmol/L (98-108); Glucose 93 mg/dL (70-99); Potassium 4.0 mmol/L (3.3-5.1)
== END | disposition home or self-care (01) ==
LOC: MTLAB 13:27
PROVIDERS: PCP Internal Medicine; Referring Provider Internal Medicine Pulmonary Disease; Visit Provider Internal Medicine Pulmonary Disease
DX: J45.40 Moderate persistent asthma, uncomplicated (principal)
CPT/HCPCS: 36415; 80048

== ENCOUNTER → 2024-12-03 | Outpatient (CLI) | payer MEDICARE, OTHER, SELFPAY | END | disposition home or self-care (01) | LOC: MTLAB 13:05 | PROVIDERS: PCP Internal Medicine; Referring Provider Internal Medicine Pulmonary Disease; Visit Provider Internal Medicine Pulmonary Disease | DX: J45.40 Moderate persistent asthma, uncomplicated (principal) | CPT/HCPCS: 87070; 87205 ==

== ENCOUNTER → 2024-12-10 | Outpatient (CLI) | payer MEDICARE, OTHER, SELFPAY | END | disposition home or self-care (01) | LOC: LAB.FUTURE 14:58 → MTLAB 14:59 | PROVIDERS: PCP Internal Medicine; Referring Provider Internal Medicine Pulmonary Disease; Visit Provider Internal Medicine Pulmonary Disease | DX: I27.20 Pulmonary hypertension, unspecified (principal); I45.10 Unspecified right bundle-branch block | CPT/HCPCS: 87070; 87205 ==

== ENCOUNTER → 2024-12-20 | Outpatient (CLI) | payer MEDICARE, OTHER, SELFPAY ==
[2024-12-20 13:25] LABS: Anion Gap 13 (5-15); BUN 60 mg/dL (4-19); BUN/Creat Ratio 14.5 RATIO (10-20); Calcium,Total 9.7 mg/dL (7.6-11.0); Carbon Dioxide 24.8 mmol/L (21.0-32.0); Chloride 103 mmol/L (98-108); Glucose 97 mg/dL (70-99); Potassium 3.8 mmol/L (3.3-5.1)
== END | disposition home or self-care (01) ==
LOC: LAB 11:55
PROVIDERS: PCP Internal Medicine; Referring Provider Nurse Practitioner Family; Visit Provider Nurse Practitioner Family
DX: N17.9 Acute kidney failure, unspecified (principal); N18.4 Chronic kidney disease, stage 4 (severe); I50.42 Chronic combined systolic (congestive) and diastolic (congestive) heart failure; I25.10 Atherosclerotic heart disease of native coronary artery without angina pectoris; Z95.1 Presence of aortocoronary bypass graft
CPT/HCPCS: 36415; 80048

== ENCOUNTER → 2024-12-23 | Outpatient (CLI) | payer MEDICARE, OTHER, SELFPAY ==
[2024-12-23 14:47] LABS: Anion Gap 12 (5-15); BUN 61 mg/dL (4-19); BUN/Creat Ratio 16.4 RATIO (10-20); Calcium,Total 9.7 mg/dL (7.6-11.0); Carbon Dioxide 24.7 mmol/L (21.0-32.0); Chloride 102 mmol/L (98-108); Glucose 93 mg/dL (70-99); Potassium 4.0 mmol/L (3.3-5.1)
== END | disposition home or self-care (01) ==
LOC: LAB 13:00
PROVIDERS: PCP Internal Medicine; Referring Provider Nurse Practitioner Family; Visit Provider Nurse Practitioner Family
DX: R06.02 Shortness of breath (principal); N18.4 Chronic kidney disease, stage 4 (severe); R60.9 Edema, unspecified; I36.1 Nonrheumatic tricuspid (valve) insufficiency; N17.9 Acute kidney failure, unspecified
CPT/HCPCS: 36415; 80048

== ENCOUNTER → 2024-12-28 | Outpatient (CLI) | payer MEDICARE, OTHER, SELFPAY ==
--- NOTE | 2024-12-28 16:52 | CT_ITS ---
PROCEDURE: CHEST WITHOUT CONTRAST 12/28/2024 REASON FOR EXAM: ASTHMA Cough. TECHNIQUE: Chest CT without contrast. Coronal and Sagittal reconstruction series were provided. One or more dose reduction techniques were used (e.g., Automated exposure control, adjustment of the mA and/or kV according to patient size, use of iterative reconstruction technique RADIATION DOSE SUMMARY: CTDlvol: 13.1 mGy DLP: 425.7 mGycm COMPARISON: Chest CT March 2020. FINDINGS: Thyroid gland: 1.8 cm right thyroid nodule possibly increased in size.. Lungs: There are numerous bilateral pulmonary nodules that are new. Several these are irregular/spiculated. Several nodules have increased in size. Largest left upper lung nodule is 9 mm and is best seen on image 20. Largest left lower lobe nodule is on image 79 measures 11 x 10 mm. This lesion is likely new. On the right side largest nodules on image 71 measures 9 mm previously measures 7 mm. Pleura: Minimal right-sided pleural fluid. Airways: Imaged bronchi and trachea otherwisenegative. Mediastinum: Negative for mediastinal mass. Lymph nodes: Negative for axillary, mediastinal or hilar adenopathy. Heart and Vasculature: Right-sided aortic arch noted. Remainder of the thoracic aorta is tortuous. Heart normal size. [id number] vascular calcifications of the thoracic aorta. Coronary Artery Calcifications: Severe vascular calcifications of the coronary arteries Upper Abdomen: Indeterminate lesion arising from the right kidney Hounsfield measurement of 30 is new since the prior exam. Heterogeneous lesion of the left adrenal gland is unchanged and likely contains a least a small component of fat and therefore favor angiomyolipoma. Hardware: None. Bones: Kyphosis of the imaged thoracic spine. No lytic or sclerotic lesions. Degenerative changes in the shoulders. CT/Chest without Contrast IMPRESSION: At least moderate worsening of bilateral pulmonary nodules. Again there are nu merous bilateral pulmonary nodules. The number and size of nodules have increased. This is concerning for slowly progressing neoplasm. Indeterminate lesion of the right lobe of thyroid. Nonemergent thyroid ultraso und likely helpful. Indeterminate lesion right kidney. Either CT or MR for renal mass protocol wou ld be helpful. Overall concern for slowly progressing metastatic disease, therefore CT of the chest abdomen pelvis with IV and oral contrast (assuming renal function will tolerate) is recommended. Reading Location: [place] [id number]
== END | disposition home or self-care (01) ==
LOC: CT 16:47
PROVIDERS: PCP Internal Medicine; Referring Provider Internal Medicine Pulmonary Disease; Visit Provider Internal Medicine Pulmonary Disease
DX: J45.40 Moderate persistent asthma, uncomplicated (principal)
CPT/HCPCS: 71250

== ENCOUNTER → 2024-12-30 | Outpatient (CLI) | payer MEDICARE, OTHER, SELFPAY ==
[2024-12-30 17:21] LABS: Anion Gap 14 (5-15); BUN 58 mg/dL (4-19); BUN/Creat Ratio 15.7 RATIO (10-20); Calcium,Total 9.6 mg/dL (7.6-11.0); Carbon Dioxide 22.2 mmol/L (21.0-32.0); Chloride 105 mmol/L (98-108); Glucose 106 mg/dL (70-99); Potassium 4.6 mmol/L (3.3-5.1); Pro- Brain NATRIURETIC PEPTIDE 4358 pg/mL (<=1800)
== END | disposition home or self-care (01) ==
PROVIDERS: PCP Internal Medicine; Referring Provider Nurse Practitioner Family; Visit Provider Nurse Practitioner Family
DX: R93.89 Abnormal findings on diagnostic imaging of other specified body structures (principal); I50.42 Chronic combined systolic (congestive) and diastolic (congestive) heart failure; Z79.899 Other long term (current) drug therapy; I25.10 Atherosclerotic heart disease of native coronary artery without angina pectoris; R06.00 Dyspnea, unspecified
CPT/HCPCS: 36415; 80048; 83880

== ENCOUNTER → 2025-01-07 | Outpatient (CLI) | payer MEDICARE, OTHER, SELFPAY ==
[2025-01-07 13:14] LABS: Hematocrit 30.4 % (37-47); Hemoglobin 9.2 g/dL (12.0-15.0); Mean Corp Hgb Conc 30.3 g/dL (32-36); Mean Corpuscular Volume 92.7 fL (81-99); Mean Platelet Vol. 10.9 fl (6.2-12.0); Platelet Count 224 K/mm3 (150-450); RBC Distribution Width CV 14.6 % (11.6-14.6); RBC Distribution Width SD 49.9 fl (35.1-43.9); Red Blood Count 3.28 M/mm3 (4.2-5.4); White Blood Count 7.7 K/mm3 (4.4-11.0)
[2025-01-07 13:37] LABS: Creatinine, Urine (random) 33.60 mg/dL (28.00-217.00); Protein, Urine (Random) 16.0 mg/dL (0.0-12.0); Protein:Creat Ratio 476 mg/g CRE (0-200)
[2025-01-07 13:38] LABS: PTHIN 348 pg/mL (11-61)
[2025-01-07 13:58] LABS: Albumin, Serum 3.8 g/dL (3.4-4.8); Anion Gap 12 (5-15); BUN 57 mg/dL (4-19); BUN/Creat Ratio 16.8 RATIO (10-20); Calcium,Total 9.6 mg/dL (7.6-11.0); Carbon Dioxide 23.8 mmol/L (21.0-32.0); Chloride 105 mmol/L (98-108); Glucose 82 mg/dL (70-99); Potassium 4.2 mmol/L (3.3-5.1); Vitamin D,25 Hydroxy 32.5 ng/mL (30-100)
== END | disposition home or self-care (01) ==
PROVIDERS: PCP Internal Medicine; Referring Provider Internal Medicine Nephrology; Visit Provider Internal Medicine Nephrology
DX: N18.4 Chronic kidney disease, stage 4 (severe) (principal)
CPT/HCPCS: 36415; 80069; 82306; 82570; 83970; 84156; 85027

== ENCOUNTER 2025-01-16 15:42 | Emergency (ER) | payer MEDICARE, OTHER, SELFPAY ==
[2025-01-16 15:43] VITALS: BP 178/64; PULSE 72; RESP 18; TEMP 36.6; O2SAT 95; BMI 30.4
--- NOTE | 2025-01-16 15:52 | CT_ITS ---
PROCEDURE: SPINE CERVICAL WITHOUT CONTRAS 01/16/2025 REASON FOR EXAM: FALL TECHNIQUE: Procedure Code: CTSPC Modality: CT Procedure: SPINE CERVICAL WITHOUT CONTRAS Coronal and Sagittal reconstruction series were provided. One or more dose reduction techniques were used (e.g., Automated exposure control, adjustment of the mA and/or kV according to patient size, use of iterative reconstruction technique. RADIATION DOSE SUMMARY: CTDlvol: 68.64 mGy DLP: 1273.02 mGycm COMPARISON: CT chest dated 12/28/2024 FINDINGS: Alignment: C3 on C4 3 mm anterolisthesis, degenerative in nature. Vertebrae: The vertebral heights are maintained. Multilevel degenerative disc space loss, with combination of thickening of ligamentum flavum, which results in at least moderate spinal canal stenosis at C3-4, C4-5, C5-6 and severe neural foraminal stenosis of bilateral C3-4, left C4-5, right C5-6. Incidentally noted right-sided arch. 1.5 cm right thyroid lobe nodule. Multiple apical lung nodules are noted with the largest lesion measuring 11 mm in the left lung apex. CT/Spine Cervical without Contras IMPRESSION: NO ACUTE CERVICAL FRACTURE Severe discogenic degenerative changes as above. Incidentally noted right-sided arch. 1.5 cm right thyroid lobe nodule. Recommend outpatient thyroid ultrasound for further evaluation. Multiple apical lung nodules are noted with the largest lesion measuring 11 mm in the left lung apex. Reading Location: [facility]
--- NOTE | 2025-01-16 15:52 | RAD_ITS ---
PROCEDURE: PELVIS 1 OR 2 VIEWS 01/16/2025 REASON FOR EXAM: FALL TECHNIQUE: Procedure Code: RADPEL Modality: DX Procedure: PELVIS 1 OR 2 VIEWS COMPARISON: None FINDINGS: Hardware: None Bones: No acute fracture. Joints: Normal alignment at the hips and sacroiliac joints. soft tissues: Soft tissues are unremarkable. RAD/Pelvis 1 or 2 Views IMPRESSION: No acute left hip fracture. Reading Location: [facility]
--- NOTE | 2025-01-16 15:52 | CT_ITS ---
PROCEDURE: BRAIN/HEAD WITHOUT CONTRAST 01/16/2025 REASON FOR EXAM: FALL TECHNIQUE: Procedure Code: CTBR Modality: CT Procedure: BRAIN/HEAD WITHOUT CONTRAST Coronal and Sagittal reconstruction series were provided. One or more dose reduction techniques were used (e.g., Automated exposure control, adjustment of the mA and/or kV according to patient size, use of iterative reconstruction technique. RADIATION DOSE SUMMARY: DLP: 796.11 mGycm COMPARISON: None FINDINGS: Brain: Encephalomalacia noted right anterior temporal lobe left lateral cerebellum. Otherwise, no parenchymal hemorrhage or large territory infarct. CSF Spaces: Mild generalized cerebral atrophy Sinuses/Mastoids: Clear at visualized levels Bones: Postsurgical changes of right frontal and temporal craniotomy. CT/Brain/Head without Contrast IMPRESSION: No acute intracranial abnormality. 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 Postsurgical changes of the right frontal and temporal bone craniotomy. Reading Location: [facility]
--- NOTE | 2025-01-16 15:53 | ED.VIS.FALL ---
HPI HPI - Fall History of Present Illness Chief Complaint: Fall Detail of Chief Complaint: Fall Informant: patient Narrative Narrative: Patient presents to the emergency department after a fall that occurred yesterday. Patient states that she was trying to open the washing machine door when she lost her balance and fell onto her left side. She did hit her head but no loss of consciousness. Her had a hard time getting her up because she has bad knees. Eventually she was able to get up. Yesterday just slept a lot and had a headache and did not feel well. Family asked her to come in and get evaluated today. Patient complaining of some pain in her left hip. She has been ambulatory. Denies severe neck pain or numbness or tingling in the extremities. She is not anticoagulated. [facility] Medical History Acute bronchitis, unspecified Asthmatic bronchitis with exacerbation Acute frontal sinusitis, unspecified History of transposition of great vessels Wears glasses Cancer Depression Insulin dependent diabetes mellitus Arthritis Ambulates with cane History of renal disease Anemia TIA (transient ischemic attack) Essential tremor Seizures Dietary restriction History of IBS Non-smoker CPAP (continuous positive airway pressure) dependence History of pain when walking History of edema History of Holter monitoring History of echocardiogram History of stress test Cardiology follow-up encounter Bradycardia Acute on chronic kidney failure Head contusion Contusion of left shoulder Grade III diastolic dysfunction Pain, lower extremity Renal insufficiency SOB (shortness of breath) COVID-19 virus detected (02/26/20) 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 Non-ischemic cardiomyopathy Diabetes mellitus type 2 in obese Benign positional vertigo Gout Colon polyps GERD (gastroesophageal reflux disease) Lower GI bleed (03/2019) Acute on chronic anemia Iron deficiency anemia refractory to iron therapy Chronic combined systolic and diastolic CHF (congestive heart failure) History of non-ST elevation myocardial infarction (NSTEMI) (04/2017) Paroxysmal atrial flutter Essential (primary) hypertension Pseudoaneurysm following procedure Bruit (arterial) Injury of femoral artery New onset atrial flutter (09/29/17) Secondary pulmonary arterial hypertension Asthma Other cerebral infarction Meningioma Partial symptomatic epilepsy with complex partial seizures, intractable, with status epilepticus Benign paroxysmal positional vertigo Paroxysmal atrial fibrillation Atrial enlargement, left Atherosclerotic heart disease of [place] coronary artery without angina pectoris HLD (hyperlipidemia) Obesity Non-ST elevation myocardial infarction (NSTEMI) due to mismatch of myocardial oxygen supply and demand (11/2016) Home Medications ?Medication ?Instructions ?Recorded ?Last Taken ?Type montelukast 10 mg tablet 10 mg PO QHS allergies 08/24/17 01/15/25 History cholecalciferol (vitamin D3) 25 1,000 unit PO DAILY 03/26/19 01/15/25 History mcg (1,000 unit) tablet lansoprazole 30 mg capsule,delayed 30 mg PO DAILY GERD 03/26/19 01/16/25 History release aspirin 81 mg tablet 81 mg PO QHS heart health 12/08/20 01/15/25 History Handicap Placard #1 ea 10/04/21 Unknown Rx topiramate 25 mg tablet 25 mg PO DAILY 10/04/21 01/16/25 History fluticasone 250 mcg-salmeterol 50 1 inh inhalation BID 06/03/22 01/16/25 History mcg/dose blistr powdr for inhalation (Wixela Inhub) insulin glargine 100 unit/mL (3 24 unit subcut QPM 06/03/22 01/15/25 History mL) subcutaneous pen (Lantus Solostar U-100 Insulin) linagliptin 5 mg tablet (Tradjenta) 5 mg PO DAILY 06/03/22 01/16/25 History allopurinol 100 mg tablet 100 mg PO DAILY 10/29/22 01/16/25 History amiodarone 200 mg tablet 200 mg PO DAILY #90 tabs 02/20/24 01/16/25 Rx furosemide 40 mg tablet 80 mg (2 x 40 mg) PO DAILY #180 05/19/24 01/16/25 Rx tabs albuterol sulfate 90 mcg/actuation 2 puff inhalation Q6H PRN 11/09/24 Unknown History aerosol inhaler (ProAir HFA) Shortness Of Breath atorvastatin 40 mg tablet 40 mg PO Q OTHER DAY 11/09/24 01/15/25 History nitroglycerin 0.4 mg sublingual 0.4 mg sublingual Q5M PRN chest 11/09/24 Unknown History tablet pain potassium chloride 20 mEq 20 meq PO QDAY 11/09/24 01/16/25 History tablet,extended release(part/cryst) carvedilol 6.25 mg tablet 6.25 mg PO BID #180 TABLETS 11/25/24 01/16/25 Rx magnesium oxide 400 mg (241.3 mg 400 mg PO DAILY #90 tabs 12/20/24 01/16/25 Rx magnesium) tablet metolazone 5 mg tablet 5 mg PO MOWEFR 01/16/25 01/16/25 History Allergy/AdvReac Type Severity Reaction Status Date / Time lisinopril AdvReac cough Verified 01/16/25 15:45 Family History Father CAD (coronary artery disease) Hypertension Cancer skin Mother CAD (coronary artery disease) Hypertension Diabetes Brother CAD (coronary artery disease) Sister CAD (coronary artery disease) Myocardial infarction Surgical History History of arteriovenous graft History of surgery Hx of hysterectomy H/O basal cell carcinoma excision H/O cardiac radiofrequency ablation H/O coronary artery bypass surgery (08/06/04) History of radiofrequency ablation procedure for cardiac arrhythmia (12/04/17) History of colonoscopy History of cardioversion (09/29/17) History of hysterectomy History of tonsillectomy History of ankle surgery H/O craniotomy (2008) History of left heart catheterization (LHC) (11/25/16) Social History Smoking Status: Never smoker alcohol intake: never substance use type: does not use diet: diabetic caffeine: Yes Type: carbonated beverages and tea what type of physical activity do you participate in: none seatbelt use: always do you feel safe at home: Yes ROS ROS ED Review of Systems ROS Unobtainable: other Constitutional Constitutional ED: Reports lethargy; Denies chills, fever(s), sweats or weight loss Eyes Eyes: Denies blurry vision, change in vision or diplopia ENT ENT ED: Denies rhinorrhea or sore throat Cardiovascular Cardiovascular: Denies chest pain, orthopnea or racing heartbeat Respiratory/Chest Respiratory/Chest: Denies cough, dyspnea, dyspnea on exertion, orthopnea or sputum Gastrointestinal Gastrointestinal: Denies abdominal pain, diarrhea, nausea or vomiting Genitourinary Genitourinary ED: Denies dysuria, hematuria or urinary frequency Musculoskeletal Musculoskeletal: Reports other Details: Left hip pain ; Denies arthralgias, back pain, myalgias or neck pain Integumentary Denies abscess, Abrasions or rash Neurologic Neurologic: Reports headache(s); Denies weakness Psychiatric Psychiatric: Denies anxiety, depression or suicidal thoughts Endocrine Endocrinology: Denies polydipsia, polyphagia or polyuria Hematologic/Lymphatic Hematologic/Lymphatic: Denies easy bleeding, easy bruising or lymphadenopathy Allergic/Immunologic Allergic/Immunologic ED: Denies mouth swelling, tongue swelling or urticaria EXAM Physical Exam Const Vital Signs: 01/16/25 15:43 01/16/25 15:49 Temperature 97.8 F Temperature Source Oral Pulse Rate 72 Respiratory Rate 18 Respiratory Effort Normal Respiratory Depth Normal Respiratory Pattern Normal Blood Pressure 178/64 H Blood Pressure Mean 102 Pulse Ox 95 Oxygen Delivery Method Room Air Room Air Positive well nourished and well developed General Appearance ED: well developed and NAD HEENT Reports TM's clear and moist mucous membranes HEENT Narrative: No external evidence of trauma to her head normocephalic and atraumatic; Negative for trauma or tenderness Tympanic Membrane ED: Yes TM's clear Eyes PERRL and EOMs intact bilaterally General Eye ED: Negative for pale conjunctiva or scleral icterus Neck no lymphadenopathy, supple and no JVD Neck Narrative: Mild diffuse tenderness. No bony step-offs or depressions. Good range of motion. General: tenderness Chest Wall inspection of chest normal and palpation of chest normal Chest: Negative for tenderness Resp normal respiratory effort and clear to auscultation bilaterally Effort and Inspection: Negative for respiratory distress or pain with movement Auscultation: Negative for rhonchi, wheezes or diminished lung sounds Cardio regular rate, regular rhythm, S1 normal heart sound, S2 normal heart sound and no murmurs Peripheral Pulses: pulses 2+ throughout GI normal to inspection, nondistended, normoactive bowel sounds, soft to palpation, non-tender, non-distended and no masses Back/Spine no CVA tenderness and no thoracic nor lumbar tenderness Back/Spine Narrative: Tenderness palpation over the left ischial tuberosity posteriorly. No significant tenderness at the hip joint. There is no rotational deformity. No pain with straight leg raising. Neurovascular intact distally. Extremity normal to inspection General Extremety ED: Negative for edema General Extremity: Negative for edema Neuro oriented x3, CN's II-XII intact bilaterally, no sensory deficits noted and gait normal Sensorium / Orientation: awake, alert, oriented to person, oriented to place and oriented to time Motor Exam: strength 5/5 throughout and strength abnormal Psych mental status grossly normal Skin no rashes or lesions noted and no wounds MDM MDM MDM Narrative Medical decision making narrative: Patient presents with fall that occurred yesterday with pain in her head and left hip. Clinically looks well. CT scan of the brain without contrast showed chronic involutional changes and old traumatic changes. CT of the C-spine showed no fractures. She had degenerative changes. She had a nodule in the right lobe of her thyroid which patient is aware of. Patient also had some nodules in the apices of her lungs. Patient had x-rays of her pelvis which were negative for fracture. At this point patient will be discharged to home. She is advised to use Tylenol for discomfort Lab Data Attestation: I reviewed the patient's lab results. Radiography Diagnostic Testing: Clinical Impression(s) from Imaging Studies Brain CT 01/16/25 15:52 IMPRESSION: No acute intracranial abnormality. 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 Postsurgical changes of the right frontal and temporal bone craniotomy. Reading Location: [facility] Cervical Spine CT 01/16/25 15:52 IMPRESSION: NO ACUTE CERVICAL FRACTURE Severe discogenic degenerative changes as above. Incidentally noted right-sided arch. 1.5 cm right thyroid lobe nodule. Recommend outpatient thyroid ultrasound for further evaluation. Multiple apical lung nodules are noted with the largest lesion measuring 11 mm in the left lung apex. Reading Location: [facility] Pelvis X-Ray 01/16/25 15:52 IMPRESSION: No acute left hip fracture. Reading Location: [facility] Discharge Plan Triage Chief Complaint: Fall ED Provider: Norma Figueroa Dx/Rx/DC Orders Clinical Impression: CHI (closed head injury), Contusion of hip, left Instructions: ED Head Injury (Adult), ED Hip Contusion Prescriptions: No Action atorvastatin 40 mg tablet 40 mg PO Q OTHER DAY Patient Comments: TAKE 1 TABLET BY MOUTH EVERY OTHER DAY topiramate 25 mg tablet 25 mg PO DAILY Patient Comments: TAKE 1 TABLET BY MOUTH EVERY DAY FOR 30 DAYS (DME) Handicap Placard See Rx Instructions .Route .MEDSUPPLY Qty: 1 0RF Rx Instructions: As directed; Good from 10/04/2021-10/04/2026 potassium chloride 20 mEq tablet,ER particles/crystals 20 meq PO QDAY nitroglycerin 0.4 mg tablet, sublingual 0.4 mg sublingual Q5M PRN (Reason: chest pain) montelukast 10 MG tablet 10 mg PO QHS lansoprazole 30 MG capsule,delayed release(DR/EC) 30 mg PO DAILY cholecalciferol (vitamin D3) 1,000 UNIT tablet 1,000 unit PO DAILY aspirin 81 mg Tablet 81 mg PO QHS albuterol sulfate [ProAir HFA] 90 mcg/actuation HFA aerosol inhaler 2 puff INHALATION Q6H PRN (Reason: Shortness Of Breath) Tradjenta 5 mg Tablet 5 mg PO DAILY fluticasone propion-salmeterol [Wixela Inhub] 250-50 mcg/dose Blister With Device 1 inh INHALATION BID insulin glargine [Lantus Solostar U-100 Insulin] 100 unit/mL (3 mL) Insulin Pen 24 unit SUBCUT QPM allopurinol 100 mg tablet 100 mg PO DAILY metolazone 5 mg tablet 5 mg PO MOWEFR Patient Comments: PT STATES TAKING ONCE A WEEK RIGHT NOW PER PCP INSTRUCTIONS amiodarone 200 mg tablet 200 mg PO DAILY Qty: 90 3RF Rx Instructions: TAKE 1 TABLET BY MOUTH EVERY DAY furosemide 40 mg tablet 80 mg PO DAILY Qty: 180 3RF carvedilol 6.25 mg tablet 6.25 mg PO BID Qty: 180 3RF magnesium oxide 400 mg (241.3 mg magnesium) tablet 400 mg PO DAILY Qty: 90 3RF Primary Care Provider: Nia Uriostegui Referrals: Nia Uriostegui DO [Primary Care Provider, Internal Medicine] - 3-5 Days Print Language: [place]ese Disposition Disposition: Home, Self Care
[2025-01-16 17:38] VITALS: BP 143/75; PULSE 78; RESP 18; TEMP 36.6; O2SAT 98
== END 2025-01-16 17:44 | disposition home or self-care (01) ==
PROVIDERS: Emergency Provider Emergency Medicine; PCP Internal Medicine; Visit Provider Emergency Medicine
DX: S09.90XA Unspecified injury of head, initial encounter (principal); Z79.4 Long term (current) use of insulin; E11.9 Type 2 diabetes mellitus without complications; E78.5 Hyperlipidemia, unspecified; W19.XXXA Unspecified fall, initial encounter; E04.1 Nontoxic single thyroid nodule; I25.10 Atherosclerotic heart disease of native coronary artery without angina pectoris; M25.552 Pain in left hip; Z90.710 Acquired absence of both cervix and uterus; S70.02XA Contusion of left hip, initial encounter; Z86.16 Personal history of COVID-19; I25.2 Old myocardial infarction; Z86.73 Personal history of transient ischemic attack (TIA), and cerebral infarction without residual deficits; Z95.1 Presence of aortocoronary bypass graft
CPT/HCPCS: 70450; 72125; 72170; 99282